=== PATIENT | male | born 1940 | race Caucasian/White ===

== ENCOUNTER → 2017-11-10 15:19 | Outpatient (CLI) | payer MEDICARE, SELFPAY ==
--- NOTE | 2017-11-10 12:27 | EKG12_ITS ---
Test Reason : PRE OP Blood Pressure : / mmHG Vent. Rate : 060 BPM Atrial Rate : 060 BPM P-R Int : 154 ms QRS Dur : 082 ms QT Int : 404 ms P-R-T Axes : 047 -15 -09 degrees QTc Int : 404 ms Sinus rhythm with occasional Premature ventricular complexes Otherwise normal ECG Confirmed by KATHERINE LOREDO, JOAO ([id number]), industrial editor KATHY SILVA ([id number]) on 11/16/2017 6:07:38 PM Referred By: Cammy Crowe Confirmed By:JOAO MURPHY MD
--- NOTE | 2017-11-10 15:19 | DT_ITS ---
This patient was seen during an EMR downtime November 07, 2017 - November 14, 2017. This patient may have a combination of paper and electronic documentation or all paper documentation. All documentation is viewable within the e-chart portion of [facility] for each patient visit.
[2017-11-14 16:23] LABS: BUN 21 mg/dL (7-18); BUN/Creat Ratio 14.5 RATIO (10-20); Creatinine, Serum 1.45 mg/dL (0.70-1.30); EST Glomerular Filtration Rate 50 mL/min (>60); Est Glom Filt Rate - Afr Amer 61 mL/min (>60); Glucose 81 mg/dL (74-106)
[2017-11-14 16:24] LABS: Anion Gap 7 (5-15); Calcium,Total 8.8 mg/dL (8.5-10.1); Chloride 105 mmol/L (98-107); Potassium 4.3 mmol/L (3.5-5.1); Sodium Level 139 mmol/L (136-145)
[2017-11-14 16:54] LABS: Hematocrit 42.8 % (40-54); Hemoglobin 14.3 g/dl (13.0-16.5); Mean Corp Hgb Conc 33.4 g/gl (32-36); Mean Corpuscular Hgb 29.1 pg (27.0-32.0); Mean Corpuscular Volume 87.2 fL (80-94); Mean Platelet Vol. 9.7 fl (6.2-12.0); Platelet Count 148 K/mm3 (150-450); RBC Distribution Width CV 13.8 % (11.6-14.6); RBC Distribution Width SD 43.5 fl (35.1-43.9); Red Blood Count 4.91 M/mm3 (4.6-6.2); Scan Indicated on CBC? Y/N NO; White Blood Count 5.5 K/mm3 (4.4-11.0)
== END ==
PROVIDERS: Family Provider Family Medicine; PCP Family Medicine; Visit Provider Physician Assistant
DX: Z01.818 Encounter for other preprocedural examination (principal); Z01.810 Encounter for preprocedural cardiovascular examination; I10 Essential (primary) hypertension
CPT/HCPCS: 36415; 80048; 85027; 93005

== ENCOUNTER → 2018-01-10 12:09 | Outpatient (CLI) | payer MEDICARE, SELFPAY ==
[2018-01-10 14:19] LABS: Erythrocyte Sedimentation Rate 27 mm/hr (0-20)
[2018-01-10 14:20] LABS: Absolute Neutrophil Count 2.8 X10^3/uL (2.0-7.7); Basophil# 0.01 X10^3/uL; Basophil% 0.2 % (0-1); Eosinophil# 0.27 X10^3/uL; Eosinophils% 4.9 % (0-5); Hematocrit 39.9 % (40-54); Lymphocyte % 32.7 % (19-41); Mean Corp Hgb Conc 32.6 g/gl (32-36); Mean Corpuscular Hgb 28.2 pg (27.0-32.0); Mean Corpuscular Volume 86.6 fL (80-94); Mean Platelet Vol. 9.9 fl (6.2-12.0); Monocyte# 0.65 X10^3/uL; Monocyte% 11.8 % (0-10); Neutrophil # 2.77 X10^3/uL (2.7-7.7); Neutrophil % 50.2 % (47-70); Platelet Count 194 K/mm3 (150-450); RBC Distribution Width CV 13.6 % (11.6-14.6); RBC Distribution Width SD 42.1 fl (35.1-43.9); Red Blood Count 4.61 M/mm3 (4.6-6.2); White Blood Count 5.5 K/mm3 (4.4-11.0)
[2018-01-10 14:22] LABS: POSITIVE COUNT NO; POSITIVE DIFFERENTIAL NO; POSITIVE MORPHOLOGY NO
[2018-01-10 14:48] LABS: Color, Urine Yellow (Yellow); Glucose, Dipstick Normal (Normal); Ketone-Dipstick 5 mg/dl (Negative); Leukocyte Esterase-Dipstick 25 /ul (Negative); Nitrite-Dipstick Negative (Negative); Occult Blood-Urine 150 /ul (Negative); Protein-Dipstick 30 mg/dl (Negative); Specific Gravity, Urine 1.015 (1.002-1.030); Urine Bilirubin Dipstick Negative (Negative); Urine Clarity Sl. Cloudy (Clear); Urine Urobilinogen 4 mg/dl (Normal)
[2018-01-10 14:49] LABS: ALB/GLOB Ratio 0.8 RATIO (0.9-2.4); AST(SGOT) 13 U/L (15-37); Alanine Aminotransfer ALT/SGPT 12 U/L (16-61); Albumin, Serum 3.3 g/dL (3.2-5.0); Alkaline Phosphatase 133 U/L (45-117); Anion Gap 10 (5-15); BUN 19 mg/dL (7-18); BUN/Creat Ratio 14.6 RATIO (10-20); Calcium,Total 8.8 mg/dL (8.5-10.1); Chloride 104 mmol/L (98-107); EST Glomerular Filtration Rate 57 mL/min (>60); Est Glom Filt Rate - Afr Amer 69 mL/min (>60); Ferritin 513 ng/mL (26-388); Globulin 4.3 g/dL (2.2-4.2); Glucose 100 mg/dL (74-106); Potassium 3.9 mmol/L (3.5-5.1); Protein, Total 7.6 g/dL (6.4-8.2); Sodium Level 142 mmol/L (136-145); Thyroid Stim Hormone (TSH) 3.05 uIU/mL (0.358-3.74)
[2018-01-11 09:44] LABS: Vitamin B12 344 pg/mL (211-911); Vitamin D,25 Hydroxy 30.5 ng/mL (29.95-100.01)
[2018-01-11 15:46] LABS: ANTINUCLEAR ANTIBODIES DIRECT Positive (Negative)
== END ==
PROVIDERS: Family Provider Family Medicine; PCP Family Medicine; Visit Provider Family Medicine
DX: R50.9 Fever, unspecified (principal); R53.83 Other fatigue
CPT/HCPCS: 36415; 80053; 81002; 82306; 82607; 82728; 82746; 84443; 85025; 85652; 86038; 86140; 87040; 87086

== ENCOUNTER → 2018-01-10 12:49 | Outpatient (CLI) | payer MEDICARE, SELFPAY ==
--- NOTE | 2018-01-10 15:31 | CT_ITS ---
STUDY: CT ABDOMEN AND PELVIS WITHOUT CONTRAST REASON FOR EXAM: Male, 77 years old. Left lower quadrant pain, fever RADIATION DOSAGE (If Supplied By Facility): CTDIvol = ( 6.93 ) mGy, DLP = ( 359.97 ) mGycm TECHNIQUE: Transaxial images were obtained from the dome of the diaphragm to the symphysis pubis without oral contrast, and without intravenous contrast. Sagittal and coronal images were reconstructed. Individualized dose optimization techniques were used for this CT. COMPARISON: None. FINDINGS: There are chronic interstitial fibrotic changes of the lung bases. There are atherosclerotic calcifications of the coronary arteries. Normal liver. The gallbladder appears to be surgically absent. Normal spleen. Normal pancreas. Normal bilateral adrenal glands. Mild atrophy of both kidneys. Low-density exophytic lesion of the right kidney measures 7 mm, likely representing a simple cyst. Normal visualized stomach. Normal small intestine. There are multiple colonic diverticula consistent with diverticulosis. The appendix is visualized and appears normal. Significant tortuosity of the abdominal aorta with infrarenal fusiform abdominal aortic aneurysm measuring 6.4 x 6.8 cm (AP by transverse). Atherosclerotic calcifications are noted through the aortoiliac system. Normal inferior vena cava. Normal retroperitoneum. Normal urinary bladder. There is a right-sided inguinal hernia containing adipose tissue. There are degenerative changes of the lumbar spine with levoscoliosis. Canal narrowing most conspicuous at L2-L3. CT/Abdomen/Pelvis without Cont IMPRESSION: 1. Infrarenal fusiform abdominal aortic aneurysm measuring up to 6.8 cm in axial dimension. Surgical consultation is suggested. No evidence of periaortic inflammation/leak. Limited evaluation without IV contrast. 2. Diverticulosis without evidence of diverticulitis. 3. Cholecystectomy. 4. Subcentimeter right renal cyst. Electronically Signed: Manjit Sahu MD at 9:03 EDT , Service support ,
--- NOTE | 2018-01-10 15:44 | RAD_ITS ---
STUDY: X-RAY CHEST REASON FOR EXAM: Male, 77 years old. Fever TECHNIQUE: PA and lateral views of the chest. COMPARISON: 11/01/2013 FINDINGS: Well-circumscribed, relatively dense nodule in the right upper lobe measures 8 mm, stable likely representing granuloma. There is no demonstrated pleural abnormality. Normal size heart. Normal mediastinum and maximilian. Normal visualized pulmonary arteries. There is atherosclerotic calcification of the aortic arch with tortuosity. There are diffuse degenerative changes of the visualized thoracic spine. Operative hardware of the left humerus partially visualized. There is no demonstrated abnormality of the visualized soft tissue structures of the upper abdomen. RAD/Chest PA and Lateral IMPRESSION: No acute airspace disease or pleural effusion. Stable exam. Electronically Signed: Manjit Sahu MD at 9:10 EDT , Service support ,
== END ==
PROVIDERS: Family Provider Family Medicine; PCP Family Medicine; Visit Provider Family Medicine
DX: R10.32 Left lower quadrant pain (principal); R50.9 Fever, unspecified; R53.83 Other fatigue
CPT/HCPCS: 36415; 71046; 74176; 80053; 81002; 82306; 82607; 82728; 82746; 84443; 85025; 85652; 86038; 86140; 87040; 87086; 87088

== ENCOUNTER 2018-01-11 23:05 | Emergency (ER) | payer MEDICARE, SELFPAY ==
[2018-01-11 23:06] VITALS: BP 126/74; PULSE 76; RESP 24; TEMP 36.6; O2SAT 97; BMI 26.0
--- NOTE | 2018-01-11 23:08 | CT_ITS ---
STUDY: CT ABDOMEN AND PELVIS WITH CONTRAST REASON FOR EXAM: Male, 77 years old. AAA, weakness RADIATION DOSAGE (If Supplied By Facility): CTDIvol = ( 9.87 ) mGy, DLP = ( 479.51 ) mGycm TECHNIQUE: Transaxial images were obtained from the dome of the diaphragm to the symphysis pubis without oral contrast. 100ML ml of Isovue 370 contrast was administered. Sagittal and coronal images were reconstructed. Individualized dose optimization techniques were used for this CT. COMPARISON: January 10, 2018. FINDINGS: The visualized lung bases are unremarkable. The visualized portions of the heart are within normal limits. Fatty liver. Nonvisualization of the gallbladder. No significant dilatation of the extrahepatic biliary system. Normal spleen. Normal pancreas. Normal bilateral adrenal glands. Small cysts are noted in the kidneys. Focal severe stenosis of the left main renal artery. Normal visualized stomach. Normal small intestine. Diverticulosis of the colon. The appendix is visualized and appears normal. Calcified abdominal aorta with infrarenal aneurysm measuring 7.5 x 7.2 cm. It extends approximately 12.1 cm to the aortic bifurcation. Interval development of a large left retroperitoneal hematoma is noted since extending into the left pelvic region likely related to a leaking aneurysm. No active extravasation is seen. Normal inferior vena cava. Normal urinary bladder. Fatty density at the inguinal canals, right more than left. Mild pelvic fluid. Normal abdominal wall. Degenerative vertebral changes. CT/Abdomen/Pelvis W IV Cont ONLY IMPRESSION: Bilateral renal cysts. Focal severe stenosis of the left main renal artery. Colonic diverticulosis. Infrarenal abdominal aortic aneurysm with interval development of a large left retroperitoneal hematoma extending into the pelvis. A leaking aneurysm cannot be excluded. Mild pelvic fluid. N.B. : The above information has been verbally conveyed by David Burr DO to Edna Garrett [facility]- ED RN, on 01/11/2018 23:57:11 (ET). Electronically Signed: David Burr DO at 23:57 EDT Tel [phone], Service support ,
--- NOTE | 2018-01-11 23:13 | ED.VISSUMM ---
- ER Visit Summary Date of Service: 01/11/18 Chief Complaint: [Syncope] History of Present Illness: The patient is a 77 M [who presents the emergency department with syncope. He started having left flank pain earlier this evening. He got very diaphoretic and nauseated. Is a known AAA that was diagnosed today that 6 cm. He has appointment with vascular surgery tomorrow. He has a history of coronary artery disease hypertension hyperlipidemia] Physical Examination: [] Blood pressure 126/74 heart rate 76 respiratory rate 24 pulse ox 97% WN WD mild distress PERRL EOMI MMM NECK supple and nontender, no masses RRR no murmur rub or gallop, no peripheral edema, symmetric radial pulses CTAB no respiratory distress ABDOMEN is soft and nontender, normal bowel sounds, palpable pulsatile mass skin the left lower quadrant, no rebound or guarding CVA discomfort SKIN is warm and dry no rashes pale slightly diaphoretic Alert and Oriented x3, CN II-XII in tact, no motor or sensory deficits, diffusely weak No lymphadenopathy Test Results: [] Emergency Department Course and Treatment: [Ultrasound was placed on the patient on arrival. Did confirm an aortic aneurysm. Patient will go straight to CAT scan. 2 large-bore IVs were established by EMS. He is on aspirin. He did have blood in his urine earlier today and was started on an antibiotic. CT showed ruptured abdominal aortic aneurysm. This was reviewed by myself. I did speak with the family requested [facility]. I spoke with [facility] vascular surgeon Dr. Paniagua who accepted the patient. He did request intubation. Patient was intubated with 20 of etomidate, 4 MAC blade during direct laryngoscopy cords were easily visualized 7.5 ET tube was passed without difficulty. Patient was biting on the tube after intubation and he was given succinyl choline Ativan and fentanyl. Placement was confirmed by colorimetric change bilateral breath sounds in appropriate position on chest x-ray. Trauma blood was started and he was transfused 4 units. We did contact [employer] who said that they were not flying at that time [facility] was contacted and agreed to transport via flight. Patient's blood pressure remained in the 50's-70s during this time.] Treatment Plan: [] Disposition: [Transfer] Impression: [Ruptured aortic aneurysm] This note was generated with [employer] software. It may contain incorrect words, spelling, and punctuation that were not noted in review of the chart prior to signing ED Disposition - Plan for ED Patient: Disposition: [facility] Chief Complaint: Syncope Referrals: Jack Olmedo MD [Primary Care Provider] -
--- NOTE | 2018-01-11 23:14 | ED.RN ---
per dr. monk wait toill post ct to obtain ekg.
--- NOTE | 2018-01-11 23:16 | ED.DCSUM_ITS ---
- ER Visit Summary Date of Service: 01/11/18 Chief Complaint: [Syncope] History of Present Illness: The patient is a 77 M [who presents the emergency department with syncope. He started having left flank pain earlier this evening. He got very diaphoretic and nauseated. Is a known AAA that was diagnosed today that 6 cm. He has appointment with vascular surgery tomorrow. He has a history of coronary artery disease hypertension hyperlipidemia] Physical Examination: [] Blood pressure 126/74 heart rate 76 respiratory rate 24 pulse ox 97% WN WD mild distress PERRL EOMI MMM NECK supple and nontender, no masses RRR no murmur rub or gallop, no peripheral edema, symmetric radial pulses CTAB no respiratory distress ABDOMEN is soft and nontender, normal bowel sounds, palpable pulsatile mass skin the left lower quadrant, no rebound or guarding CVA discomfort SKIN is warm and dry no rashes pale slightly diaphoretic Alert and Oriented x3, CN II-XII in tact, no motor or sensory deficits, diffusely weak No lymphadenopathy Test Results: [] Emergency Department Course and Treatment: [Ultrasound was placed on the patient on arrival. Did confirm an aortic aneurysm. Patient will go straight to CAT scan. 2 large-bore IVs were established by EMS. He is on aspirin. He did have blood in his urine earlier today and was started on an antibiotic. CT showed ruptured abdominal aortic aneurysm. This was reviewed by myself. I did speak with the family requested [facility]. I spoke with [facility] vascular surgeon Dr. Paniagua who accepted the patient. He did request intubation. Patient was intubated with 20 of etomidate, 4 MAC blade during direct laryngoscopy cords were easily visualized 7.5 ET tube was passed without difficulty. Patient was biting on the tube after intubation and he was given succinyl choline Ativan and fentanyl. Placement was confirmed by colorimetric change bilateral breath sounds in appropriate position on chest x-ray. Trauma blood was started and he was transfused 4 units. We did contact [employer] who said that they were not flying at that time [facility] was contacted and agreed to transport via flight. Patient's blood pressure remained in the 50's-70s during this time.] Treatment Plan: [] Disposition: [Transfer] Impression: [Ruptured aortic aneurysm] This note was generated with [employer] software. It may contain incorrect words, spelling, and punctuation that were not noted in review of the chart prior to signing ED Disposition - Plan for ED Patient: Disposition: [facility] Chief Complaint: Syncope Referrals: Jack Olmedo MD [Primary Care Provider] -
[2018-01-11 23:20] LABS: Absolute Lymphocyte Count 3.83 X10^3/ul (0.83-4.51); Absolute Neutrophil Count 4.5 X10^3/uL (2.0-7.7); Basophil# 0.02 X10^3/uL; Basophil% 0.2 % (0-1); Eosinophil# 0.34 X10^3/uL; Eosinophils% 3.5 % (0-5); Hemoglobin 11.7 g/dl (13.0-16.5); Lymphocyte # 3.83 X10^3/ul (4.0); Lymphocyte % 39.5 % (19-41); Mean Corp Hgb Conc 33.4 g/gl (32-36); Mean Corpuscular Volume 86.6 fL (80-94); Mean Platelet Vol. 9.4 fl (6.2-12.0); Monocyte# 1.02 X10^3/uL; Monocyte% 10.5 % (0-10); Neutrophil # 4.46 X10^3/uL (2.7-7.7); Platelet Count 208 K/mm3 (150-450); RBC Distribution Width CV 13.2 % (11.6-14.6); RBC Distribution Width SD 41.3 fl (35.1-43.9); Red Blood Count 4.04 M/mm3 (4.6-6.2); White Blood Count 9.7 K/mm3 (4.4-11.0)
[2018-01-11 23:22] LABS: POSITIVE COUNT NO; POSITIVE DIFFERENTIAL NO; POSITIVE MORPHOLOGY NO
[2018-01-11 23:28] LABS: International Normalized Ratio 1.3; Prothrombin Time (Protime)PT. 15.8 SECONDS (11.7-14.9)
[2018-01-11] MEDS: Ondansetron 4 MG/2 ML Vial IV (23:31)
[2018-01-11] MEDS: 0.9% Normal Saline 1,000 ML 1000 ML IV (23:34)
[2018-01-11 23:39] LABS: ALB/GLOB Ratio 0.7 RATIO (0.9-2.4); AST(SGOT) 9 U/L (15-37); Alanine Aminotransfer ALT/SGPT 9 U/L (16-61); Albumin, Serum 2.7 g/dL (3.2-5.0); Alkaline Phosphatase 105 U/L (45-117); Anion Gap 7 (5-15); BUN 21 mg/dL (7-18); BUN/Creat Ratio 14.9 RATIO (10-20); Calcium,Total 7.8 mg/dL (8.5-10.1); Chloride 106 mmol/L (98-107); Creatinine, Serum 1.41 mg/dL (0.70-1.30); EST Glomerular Filtration Rate 52 mL/min (>60); Est Glom Filt Rate - Afr Amer 63 mL/min (>60); Estimated Creatinine Clearance 43.87 ml/min; Globulin 3.7 g/dL (2.2-4.2); Glucose 206 mg/dL (74-106); Potassium 3.4 mmol/L (3.5-5.1); Protein, Total 6.4 g/dL (6.4-8.2); Sodium Level 140 mmol/L (136-145)
[2018-01-11] MEDS: Etomidate 20 MG/10 ML Vial IV (23:46)
[2018-01-11] MEDS: LORazepam 2 MG/ML Syringe 1 MG IV (23:50)
[2018-01-11] MEDS: Succinylcholine Chloride 200 MG/10 ML Vial 100 MG IV (23:51)
--- NOTE | 2018-01-11 23:55 | RAD_ITS ---
STUDY: X-RAY CHEST REASON FOR EXAM: Male, 77 years old. ETT and OGT placement TECHNIQUE: Single frontal view of the chest. COMPARISON: 01/10/2018 FINDINGS: Endotracheal tube tip 3.3 cm from kianna, in appropriate position. Enteric tube tip excluded by collimation in the abdomen. Bibasilar atelectasis. There is no demonstrated pleural abnormality. Normal size heart. Normal mediastinum and maximilian. Normal visualized pulmonary arteries. There is atherosclerotic calcification of the aortic arch with tortuosity. Normal visualized thoracic spine. Remote deformity of the right scapula. Hardware in the left humerus. There is no demonstrated abnormality of the visualized soft tissue structures of the upper abdomen. RAD/Chest 1 View (Portable) IMPRESSION: Endotracheal tube tip 3.3 cm from kianna, in appropriate position. Enteric tube tip excluded by collimation in the abdomen. Electronically Signed: Ashu Montalvo MD at 0:06 EDT Tel , Service support ,
[2018-01-12] MEDS: LORazepam 2 MG/ML Syringe 1 MG IV (00:03)
[2018-01-12] MEDS: fentaNYL 100 MCG/2 ML Ampul 50 MCG IV (00:04)
[2018-01-12 00:13] VITALS: BP 58/36; PULSE 105; RESP 18; O2SAT 98
[2018-01-12 00:20] VITALS: BP 58/36; PULSE 85
--- NOTE | 2018-01-12 00:37 | ED.RN ---
2345 2 UNITS TRAUMA BLOOD STARTED. 0004 2ND SET OF 2 UNITS OF TRAUMA BLOOD STARTED/ TRANSPORT HERE AND SWITCHING PATIENT OVER.
--- NOTE | 2018-01-12 00:53 | ED.RN ---
[address], ABDOMEN PAIN INCREASING PER PT. FEELING LIKE HE IS GOING TO PASS OUT. DR. CHAPPELL AWARE BP 69/56 2342 2 UNITS TRAUMA BLOOD STARTED. IVF PLACED ON PRESSURE BAGS. DR. CHAPPELL AT BEDSIDE. 2346 20 ETOMIDATE GIVEN AND INTUBATED. PULS OXYGEN NOT READING WELL PER DR. CHAPPELL SAT IS NOT CORRECT. IVF CONTINUED TO INFUSE VIA PRESSURE BAGS. 3RD IV ESTABLISHED 22G [address]. OG PLACED POSITIVE AIR BOLUS HEARD 2355 2 UNITS OF BLOOD TRANSFUSED. 4 L FLUID GIVEN 0003 [facility] AT BEDSIDE. REPORT GIVEN. 2ND SET OF 2 UNITS OF TRAUMA BLOOD STARTED
== END 2018-01-12 01:00 | disposition short-term general hospital (02) ==
LOC: ED 23:44
PROVIDERS: Emergency Provider Emergency Medicine; Family Provider Family Medicine; PCP Family Medicine
DX: I71.3 Abdominal aortic aneurysm, ruptured (principal); R31.9 Hematuria, unspecified; I25.10 Atherosclerotic heart disease of native coronary artery without angina pectoris; I10 Essential (primary) hypertension; E78.5 Hyperlipidemia, unspecified; Z79.82 Long term (current) use of aspirin; Z79.899 Other long term (current) drug therapy
CPT/HCPCS: 31500; 36430; 51702; 71045; 74177; 80053; 84484; 85025; 85610; 86850; 86900; 86920; 86922; 93005; 96361; 96374; 96375; 99251; 99285; J7030; J7050; P9016; Q9967; A4216; G0463; J0330; J2405

== ENCOUNTER 2018-03-28 15:15 | Inpatient (IN) | payer MEDICARE, SELFPAY ==
[2018-03-28 16:10] VITALS: BP 105/63; PULSE 82; RESP 18; TEMP 36.6; O2SAT 99
--- NOTE | 2018-03-28 16:11 | NURSING ---
Pt admitted to room 18 from [facility] via cot. Patient oriented to room and call light system explained.
--- NOTE | 2018-03-28 16:40 | NURSING ---
ALL CARE PROVIDED IN ROOM D/T MDRO IN SPUTUM.
[2018-03-28 16:55] VITALS: BMI 22.4
[2018-03-28 17:03] VITALS: BMI 22.5
--- NOTE | 2018-03-28 18:05 | NURSING ---
DISCUSSED CODE STATUS WITH R' DAUGHTER, FRANCY. CODE STATUS IS TO REMAIN FULL CODE.
[2018-03-28] MEDS: Heparin Injection (Vial) 5,000 UNIT/ML VIAL 5000 UNIT SC (18:28)
--- NOTE | 2018-03-28 19:06 | NURSING ---
THIS NURSE WENT TO ADMINISTER EVENING MEDICATIONS. UNABLE TO D/T PEG TUBE BEING CLOGGED. UNABLE TO FLUSH. TRIED TO GIVE APPLE JUICE THROUGH THE TUBE, BUT UNSUCCESSFUL. FRUIT PITTER UPDATED AND WILL SEND DE-CLOGGER TO TRY TO ATTEMPT TO DE-CLOG. WEATHER STRIP MECHANIC RN'S AWARE.
[2018-03-28 20:04] VITALS: PULSE 82
[2018-03-28] MEDS: Metoprolol Tartrate 25 MG Tablet 12.5 MG GT (20:04)
[2018-03-28] MEDS: Ferrous Sulfate 300 MG/5 ML UDC GT (20:06)
[2018-03-28] MEDS: Docusate Sodium 100 MG/10 ML UDC GT (20:06)
[2018-03-28] MEDS: Menthol/Lanolin/Calamine/Znox 113 GM Tube 1 APPLIC TOPICAL (20:07)
--- NOTE | 2018-03-28 20:11 | PCM.HP.STD ---
Problem List (1) Abdominal aortic aneurysm, ruptured Status: Acute (2) Cardiac arrest Status: Acute (3) Anoxic encephalopathy Status: Acute (4) Hyperlipidemia Status: Chronic (5) Acute kidney injury Status: Acute (6) Tachycardia Status: Acute (7) DIC (disseminated intravascular coagulation) Status: Acute (8) Ileus Status: Acute (9) Iron deficiency anemia Status: Chronic (10) GERD (gastroesophageal reflux disease) Status: Chronic (11) Dysphagia Status: Acute (12) Coronary artery disease Status: Chronic (13) Hypertension Status: Chronic History of Present Illness Date of Admission: 03/28/18 Chief Complaint: Here for rehabilitation, strengthening, prior to long-term care placement. The patient is a 78 year old Male with below past medical history presented to [facility] Emergency Department 01/11/2018 with syncope, left flank pain, diaphoresis, nausea. He was recently diagnosed with 6CM abdominal aortic aneurysm, had appointment with vascular surgery 01/12/2018. 01/11/2018 CT scan of abdomen/pelvis showed ruptured abdominal aortic aneurysm. Patient intubated, given succinyl choline, Ativan, Fentanyl. Transfused 4 units trauma blood. Patient [facility] to [facility]. 01/12/2018 Dr. Paniagua performed emergent AAA repair. Transferred to [facility] for recovery. Trach, PEG, condom catheter. Code Blue x 5, vasovagal thought secondary to Famotidine. EP recommended no intervention. Family told not to expect full recovery. HCAP treated with IV antibiotics. 03/28/2018 Admit to TCU with debility, here for rehabilitation, strengthening, prior to long-term care placement. His spouse is medically ill and unable to care for him at home. Past Medical History Past Medical History (Chronic Problems): Chronic Problems Hyperlipidemia (Chronic) Iron deficiency anemia (Chronic) GERD (gastroesophageal reflux disease) (Chronic) Coronary artery disease (Chronic) Hypertension (Chronic) Allergies famotidine [From Pepcid] Adverse Reaction (Verified 03/28/18 16:36) Low blood pressure Home Medications: Ambulatory Orders Medication Instructions Recorded Chlorhexidine [(None)] 15 ml PO BID 03/28/18 Docusate Sodium [COLACE LIQUID] 100 mg GT BID 03/28/18 Ferrous Sulfate Syrup 325 mg GT BID 03/28/18 Heparin Injection 5,000 units SC BID 03/28/18 Ipratropium/Albuterol Sulfate 3 ml INHALATION TID 03/28/18 [Duoneb] Lansoprazole [Prevacid] 30 mg GT DAILY 03/28/18 Metoprolol Tartrate [Lopressor 12.5 mg GT BID 03/28/18 (Beta Dillon)] Nystatin 100,000 unit PO 4X/DAY 03/28/18 Propylene Glycol/Peg 400/Pf 1 each OP BID 03/28/18 [Systane 0.3-0.4% Eye Drops] Surgical History: - - Left arm he states that a jerry has been placed in the arm. Emergent AAA repair. Psychiatric History: No pertinent psych hx Lives: Spouse/ Significant Other Smoking Status: Never smoker Tobacco Use: Non-smoker Alcohol: None Drugs: None - *Family History Maternal History Items: Unknown Review of Systems Constitutional: Denies: Chills, Fever, Weight Change HEENT: Denies: Head Aches, Sinus Congestion, Sinus Drainage Cardiovascular: Denies: Chest Pain, Palpitations Respiratory: Denies: Cough, Shortness of breath at rest, Sputum production Gastrointestinal: Denies: Abdominal Pain, Nausea, Vomiting Genitourinary: Denies: Dysuria Musculoskeletal: Denies: Joint Pain, Joint Tenderness Skin: Denies: Rash, Wounds Neurological: Denies: Numbness, Tingling, Focal weakness Psychiatric: Denies: Anxiety, Depression, Homicidal Ideations, Suicidal Ideations Hematologic/ Lymphatic: Denies: Easy Bruising, Easy Bleeding VTE Information - Inpt Only VTE Present on Admission: No VTE Mechan Device Prophylaxis: Knee High SKYE Hose VTE Pharm Prophylaxis ordered?: Yes Patient Problems: Active and Suspected Problems Abdominal aortic aneurysm, ruptured (Acute) Cardiac arrest (Acute) Anoxic encephalopathy (Acute) Acute kidney injury (Acute) Tachycardia (Acute) DIC (disseminated intravascular coagulation) (Acute) Ileus (Acute) Dysphagia (Acute) - Physical Exam General: Alert, Oriented x3, Cooperative HEENT: Atraumatic, PERRLA, EOMI, Normocephalic Neck: Supple, No JVD, Negative Carotid Bruits, - - Tracheostomy. Lungs: Clear to auscultation, Normal air movement Cardiovascular: Regular rate, No murmurs Abdomen: Bowel Sounds Present, Soft, Non Tender, - - PEG tube, Condom catheter. Extremities: No edema, Capillary Refill Less than 3 Seconds Skin: No rashes, No breakdown, Incision - Abdomen per wound team. Musculoskeletal: No Tenderness to Palpation of Joints or Extremities Neurological: Cranial nerves II-XII grossly intact Psych/Mental Status: Normal Affect, Appropriate Vital Signs Temp Pulse Resp BP Pulse Ox 97.9 F 82 18 105/63 99 03/28/18 16:10 03/28/18 16:10 03/28/18 16:10 03/28/18 16:10 03/28/18 16:10 Oxygen Delivery Method Room Air Weight: 73.028 kg Body Mass Index (BMI) 22.4 Assessment/Plan All Active Problems Abdominal aortic aneurysm, ruptured (Acute) Cardiac arrest (Acute) Anoxic encephalopathy (Acute) Acute kidney injury (Acute) Tachycardia (Acute) DIC (disseminated intravascular coagulation) (Acute) Ileus (Acute) Dysphagia (Acute) 78 year old male with below past medical history hospitalized for ruptured abdominal aortic aneurysm, underwent repair 01/12/[address] Paniagua, complicated by cardiac arrest, anoxic encephalopathy, admitted to [facility], then transferred to TCU for rehabilitation, strengthening, prior to legal analyst care placement. Resident's prognosis is poor. Debility - PT/OT. Dysphagia - ST. Pain - Tylenol 650MG Q6H PRN mild pain. Bowel - Colace 100MG GT BID. Pneumonia vaccination - Family declined Pneumonia vaccination as well as flu vaccination. DVT prophylaxis - Heparin 5000 units BID. Iron deficiency anemia - Ferrous sulfate 300MG BID. Shortness of breath - Duonb 3ML TID. GERD - Lansoprazole 30MG daily. Skin irritation - Calmoseptine TID buttocks. Coronary Artery Disease - Metoprolol 12.5MG BID. Thrush - Nystatin 100,000 4x/day x 10 days. Dry eyes - Artificial Tears 1GTT OU BID. Nutrition - Vital AF 1.2 60ML/hour, consult nutrition for water flushes.
[2018-03-28] MEDS: Vital AF 1.2 Cal Liquid 1,000 ML 40 ML GT (20:14)
--- NOTE | 2018-03-28 20:18 | HP.PCM_ITS ---
Problem List (1) Abdominal aortic aneurysm, ruptured Status: Acute (2) Cardiac arrest Status: Acute (3) Anoxic encephalopathy Status: Acute (4) Hyperlipidemia Status: Chronic (5) Acute kidney injury Status: Acute (6) Tachycardia Status: Acute (7) DIC (disseminated intravascular coagulation) Status: Acute (8) Ileus Status: Acute (9) Iron deficiency anemia Status: Chronic (10) GERD (gastroesophageal reflux disease) Status: Chronic (11) Dysphagia Status: Acute (12) Coronary artery disease Status: Chronic (13) Hypertension Status: Chronic History of Present Illness Date of Admission: 03/28/18 Chief Complaint: Here for rehabilitation, strengthening, prior to chcf care placement. The patient is a 78 year old Male with below past medical history presented to [facility] Emergency Department 01/11/2018 with syncope, left flank pain, diaphoresis, nausea. He was recently diagnosed with 6CM abdominal aortic aneurysm, had appointment with vascular surgery 01/12/2018. 01/11/2018 CT scan of abdomen/pelvis showed ruptured abdominal aortic aneurysm. Patient intubated, given succinyl choline, Ativan, Fentanyl. Transfused 4 units trauma blood. Patient Lifeflighted to [facility]. 01/12/2018 Dr. Paniagua performed emergent AAA repair. Transferred to [facility] for recovery. Trach, PEG, condom catheter. Code Blue x 5, vasovagal thought secondary to Famotidine. EP recommended no intervention. Family told not to expect full recovery. HCAP treated with IV antibiotics. 03/28/2018 Admit to TCU with debility, here for rehabilitation, strengthening, prior to chcf care placement. His spouse is medically ill and unable to care for him at home. Past Medical History Past Medical History (Chronic Problems): Chronic Problems Hyperlipidemia (Chronic) Iron deficiency anemia (Chronic) GERD (gastroesophageal reflux disease) (Chronic) Coronary artery disease (Chronic) Hypertension (Chronic) Allergies famotidine [From Pepcid] Adverse Reaction (Verified 03/28/18 16:36) Low blood pressure Home Medications: Ambulatory Orders Medication Instructions Recorded Chlorhexidine [(None)] 15 ml PO BID 03/28/18 Docusate Sodium [COLACE LIQUID] 100 mg GT BID 03/28/18 Ferrous Sulfate Syrup 325 mg GT BID 03/28/18 Heparin Injection 5,000 units SC BID 03/28/18 Ipratropium/Albuterol Sulfate 3 ml INHALATION TID 03/28/18 [Duoneb] Lansoprazole [Prevacid] 30 mg GT DAILY 03/28/18 Metoprolol Tartrate [Lopressor 12.5 mg GT BID 03/28/18 (Beta Dillon)] Nystatin 100,000 unit PO 4X/DAY 03/28/18 Propylene Glycol/Peg 400/Pf 1 each OP BID 03/28/18 [Systane 0.3-0.4% Eye Drops] Surgical History: - - Left arm he states that a jerry has been placed in the arm. Emergent AAA repair. Psychiatric History: No pertinent psych hx Lives: Spouse/ Significant Other Smoking Status: Never smoker Tobacco Use: Non-smoker Alcohol: None Drugs: None - *Family History Maternal History Items: Unknown Review of Systems Constitutional: Denies: Chills, Fever, Weight Change HEENT: Denies: Head Aches, Sinus Congestion, Sinus Drainage Cardiovascular: Denies: Chest Pain, Palpitations Respiratory: Denies: Cough, Shortness of breath at rest, Sputum production Gastrointestinal: Denies: Abdominal Pain, Nausea, Vomiting Genitourinary: Denies: Dysuria Musculoskeletal: Denies: Joint Pain, Joint Tenderness Skin: Denies: Rash, Wounds Neurological: Denies: Numbness, Tingling, Focal weakness Psychiatric: Denies: Anxiety, Depression, Homicidal Ideations, Suicidal Ideations Hematologic/ Lymphatic: Denies: Easy Bruising, Easy Bleeding VTE Information - Inpt Only VTE Present on Admission: No VTE Mechan Device Prophylaxis: Knee High SKYE Hose VTE Pharm Prophylaxis ordered?: Yes Patient Problems: Active and Suspected Problems Abdominal aortic aneurysm, ruptured (Acute) Cardiac arrest (Acute) Anoxic encephalopathy (Acute) Acute kidney injury (Acute) Tachycardia (Acute) DIC (disseminated intravascular coagulation) (Acute) Ileus (Acute) Dysphagia (Acute) - Physical Exam General: Alert, Oriented x3, Cooperative HEENT: Atraumatic, PERRLA, EOMI, Normocephalic Neck: Supple, No JVD, Negative Carotid Bruits, - - Tracheostomy. Lungs: Clear to auscultation, Normal air movement Cardiovascular: Regular rate, No murmurs Abdomen: Bowel Sounds Present, Soft, Non Tender, - - PEG tube, Condom catheter. Extremities: No edema, Capillary Refill Less than 3 Seconds Skin: No rashes, No breakdown, Incision - Abdomen per wound team. Musculoskeletal: No Tenderness to Palpation of Joints or Extremities Neurological: Cranial nerves II-XII grossly intact Psych/Mental Status: Normal Affect, Appropriate Vital Signs Temp Pulse Resp BP Pulse Ox 97.9 F 82 18 105/63 99 03/28/18 16:10 03/28/18 16:10 03/28/18 16:10 03/28/18 16:10 03/28/18 16:10 Oxygen Delivery Method Room Air Weight: 73.028 kg Body Mass Index (BMI) 22.4 Assessment/Plan All Active Problems Abdominal aortic aneurysm, ruptured (Acute) Cardiac arrest (Acute) Anoxic encephalopathy (Acute) Acute kidney injury (Acute) Tachycardia (Acute) DIC (disseminated intravascular coagulation) (Acute) Ileus (Acute) Dysphagia (Acute) 78 year old male with below past medical history hospitalized for ruptured abdominal aortic aneurysm, underwent repair 01/12/[address] 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 Resident's prognosis is poor. * Debility - PT/OT. * Dysphagia - ST. * Pain - Tylenol 650MG Q6H PRN mild pain. * Bowel - Colace 100MG GT BID. * Pneumonia vaccination - Family declined Pneumonia vaccination as well as flu vaccination. * DVT prophylaxis - Heparin 5000 units BID. * Iron deficiency anemia - Ferrous sulfate 300MG BID. * Shortness of breath - Duonb 3ML TID. * GERD - Lansoprazole 30MG daily. * Skin irritation - Calmoseptine TID buttocks. * Coronary Artery Disease - Metoprolol 12.5MG BID. * Thrush - Nystatin 100,000 4x/day x 10 days. * Dry eyes - Artificial Tears 1GTT OU BID. * Nutrition - Vital AF 1.2 60ML/hour, consult nutrition for water flushes.
[2018-03-28] MEDS: NYSTATIN 500,000 UNIT/5 ML UDC 100000 UNIT PO (20:46)
--- NOTE | 2018-03-28 22:30 | NURSING ---
Family informed this nurse pt tube feeding administered at [facility] was 40ml/hr flush 100ml/2hr. Family requesting pt continue rated from LATCH. Dr Gustafson aware, NO to continue Vital AF 40ml/hr with sterile flush 100ml/2hr. Call [facility] in AM to verify rate.
[2018-03-28 23:05] VITALS: PULSE 84; RESP 18; O2SAT 99
[2018-03-28] MEDS: Ipratropium/Albuterol Sulfate 3 ML AMPUL.NEB INHALATION (23:05)
[2018-03-29] VITALS (9 sets, daily range): BP systolic 93–130; BP diastolic 45–70; PULSE 73–105; RESP 18–20; TEMP 36.7; O2SAT 91–99
--- NOTE | 2018-03-29 02:13 | NURSING ---
Pt's daughter called RN in to room. Pt's daughter informed nurse pt seems like he is going to throw up. Gastric residual 120ml. Daughter informed nurse pt's greatest residual as 60ml at previous hospital. Tube feed held at this time. Will up date Dr Gustafson. Will continue to monitor and asses.
[2018-03-29] MEDS: Acetaminophen 650 MG/20 ML UDC GT (03:06)
[2018-03-29] MEDS: 0.9% NaCl Peripheral Flush Adult/Peds IV (03:09)
[2018-03-29] MEDS: Nystatin Powder 15gm Bottle 1 APPLIC TOPICAL ×2 (03:11→20:40)
[2018-03-29] MEDS: NYSTATIN 500,000 UNIT/5 ML UDC 100000 UNIT PO ×3 (03:12→20:42)
[2018-03-29] MEDS: Glycerin/Hypromellose/PEG400 15 ml Bottle 1 DRP EACH EYE ×2 (03:13→14:19)
[2018-03-29] MEDS: Menthol/Lanolin/Calamine/Znox 113 GM Tube 1 APPLIC TOPICAL ×3 (03:23→20:40)
[2018-03-29 05:43] LABS: Absolute Lymphocyte Count 1.74 X10^3/ul (0.83-4.51); Absolute Neutrophil Count 4.8 X10^3/uL (2.0-7.7); Basophil# 0.01 X10^3/uL; Basophil% 0.1 % (0-1); Eosinophil# 0.18 X10^3/uL; Eosinophils% 2.5 % (0-5); Hematocrit 25.5 % (40-54); Lymphocyte # 1.74 X10^3/ul (4.0); Lymphocyte % 24.2 % (19-41); Mean Corp Hgb Conc 31.4 g/gl (32-36); Mean Corpuscular Hgb 28.3 pg (27.0-32.0); Mean Corpuscular Volume 90.1 fL (80-94); Mean Platelet Vol. 9.4 fl (6.2-12.0); Monocyte% 5.6 % (0-10); Neutrophil # 4.84 X10^3/uL (2.7-7.7); Neutrophil % 67.5 % (47-70); Platelet Count 239 K/mm3 (150-450); RBC Distribution Width CV 16.8 % (11.6-14.6); RBC Distribution Width SD 52.7 fl (35.1-43.9); Red Blood Count 2.83 M/mm3 (4.6-6.2); White Blood Count 7.2 K/mm3 (4.4-11.0)
[2018-03-29 05:44] LABS: POSITIVE COUNT NO; POSITIVE DIFFERENTIAL NO; POSITIVE MORPHOLOGY NO
[2018-03-29 06:08] LABS: AST(SGOT) 24 U/L (15-37); Alanine Aminotransfer ALT/SGPT 18 U/L (16-61); Albumin, Serum 2.5 g/dL (3.2-5.0); Alkaline Phosphatase 124 U/L (45-117); Anion Gap 7 (5-15); BUN 32 mg/dL (7-18); BUN/Creat Ratio 18.4 RATIO (10-20); Bilirubin, Direct 0.36 mg/dL (0.00-0.30); Calcium,Total 9.8 mg/dL (8.5-10.1); Chloride 101 mmol/L (98-107); Creatinine, Serum 1.74 mg/dL (0.70-1.30); EST Glomerular Filtration Rate 41 mL/min (>60); Est Glom Filt Rate - Afr Amer 49 mL/min (>60); Estimated Creatinine Clearance 36.14 ml/min; Globulin 5.1 g/dL (2.2-4.2); Glucose 102 mg/dL (74-106); Protein, Total 7.6 g/dL (6.4-8.2); Sodium Level 135 mmol/L (136-145)
[2018-03-29] MEDS: LANSOPRAZOLE 15 MG CAPSULE.DR 30 MG GT (06:13)
[2018-03-29] MEDS: Docusate Sodium 100 MG/10 ML UDC GT ×2 (06:15→18:17)
[2018-03-29] MEDS: Ferrous Sulfate 300 MG/5 ML UDC GT ×2 (06:15→18:17)
[2018-03-29] MEDS: Metoprolol Tartrate 25 MG Tablet 12.5 MG GT ×2 (06:15→18:20)
[2018-03-29] MEDS: Heparin Injection (Vial) 5,000 UNIT/ML VIAL 5000 UNIT SC ×2 (06:17→18:18)
[2018-03-29] MEDS: Chlorhexidine 480 ML 15 ML PO ×2 (06:19→18:18)
[2018-03-29 07:00] LABS: Bedside Glucose 106 mg/dL (70-110)
[2018-03-29] MEDS: Ipratropium/Albuterol Sulfate 3 ML AMPUL.NEB INHALATION ×3 (07:00→19:35)
--- NOTE | 2018-03-29 08:58 | NURSING ---
Addendum entered by Tala Tran 03/29/18 09:13: new order for Reglan. Spoke with pt daughters this AM, they reported that pt had emesis this AM that expelled from trach. fast food shift supervisor nurse held tube feeds and then restarted at slow rate 20cc/hr. Traffic Law Attorney up to speak with daughters about pt history at last 2 hospitals with tube feeding issues. Original Note: Traffic Law Attorney recommending slow increases of vital AF 10cc q12hrs for goal rate of 60cc/hr, & change flushes to [id number]. Dr Gustafson updated.
--- NOTE | 2018-03-29 09:30 | NURSING ---
PARTITION NOTCHER called, speech therapy in room, sat pt up in bed, lifted HOB and pt went unresponsive & eyes staring up at ceiling. vitals stable. daughters very panicky, stated this happened back on 03/09/18 at [facility] and couple times before that. Pt is only alert to self by verbal stimuli and some tactile stimuli. pt does not follow commands. New order for troponin & chest xray. start IV and NS at 100cc/hr continuous
--- NOTE | 2018-03-29 09:39 | EKG12_ITS ---
Test Reason : RAPID RESPONSE Blood Pressure : / mmHG Vent. Rate : 078 BPM Atrial Rate : 078 BPM P-R Int : 158 ms QRS Dur : 088 ms QT Int : 410 ms P-R-T Axes : 031 -24 -06 degrees QTc Int : 467 ms Normal sinus rhythm Normal ECG When compared with ECG of 11-JAN-2018 23:30, Nonspecific T wave abnormality, worse in Inferior leads Nonspecific T wave abnormality now evident in Anterolateral leads Confirmed by MOY GEE ([id number]), photograph editor KATHY SILVA ([id number]) on 04/04/2018 11:33:34 AM Referred By: Jh Gustafson Confirmed By:MOY GEE
--- NOTE | 2018-03-29 09:39 | RAD_ITS ---
STUDY: X-RAY CHEST REASON FOR EXAM: Male, 78 years old. Dyspnea and increasing shortness of breath. TECHNIQUE: Single AP portable view of the chest. COMPARISON: Comparison is made with prior examination January 22, 2018. FINDINGS: A tracheostomy tube is in situ. The tip is at 3.3 cm proximal to the kianna. Increased markings at the lung bases with Cough is worse in the left lower lobe suggestive of bibasilar atelectasis and/or early infiltrates. Blunting of left costophrenic angle. Normal size heart. Normal mediastinum and maximilian. Normal visualized pulmonary arteries. There is atherosclerotic calcification of the aortic arch with tortuosity. Normal visualized thoracic spine. Normal visualized ribs, clavicles, and shoulders. There is no demonstrated abnormality of the visualized soft tissue structures of the upper abdomen. RAD/Chest 1 View (Portable) IMPRESSION: Findings suggesting bibasilar atelectasis and/or early infiltrates worse on the left side. There is blunting of the left costophrenic angle. Follow-up is recommended. Electronically Signed: Bertrand Steel MD at 10:10 EDT Tel [phone], Service support ,
[2018-03-29 09:40] LABS: Bedside Glucose 122 mg/dL (70-110)
--- NOTE | 2018-03-29 10:46 | NURSING ---
attempted IV to LT posterior arm, unsuccessful. RN transcribing operators supervisor notified, Jan Tolbert from ER will be up to try.
[2018-03-29] MEDS: Tuberculin,Purif.prot.deriv. 50 TU/ML Vial 5 ML ID (10:50)
[2018-03-29] MEDS: 0.9% Normal Saline 1,000 ML 100 ML IV ×2 (11:13→21:51)
--- NOTE | 2018-03-29 11:46 | NURSING ---
Dr Gomez notified of trop results and cxr. No new orders, continue with lung expansion, resp therapy
--- NOTE | 2018-03-29 12:24 | NURSING ---
family does not want pt taking reglan d/t extrapyramidal symptoms he developed at previous hospital. Will update dr larson
--- NOTE | 2018-03-29 13:43 | CHAPLAIN ---
Type of Pastoral Visit _x__ Initial Visit ___ Follow-up Visit ___ On-call Visit ___ General Patient Visit ___ Spiritual Assessment ___ Family Conference ___ Bereavement ___ Rapid Response ___ Code Blue ___ Other (describe below) Pastoral Care Referral From ___ Patient _x__ Family ___ Nurse ___ Physician ___ Supervisor Plate Pasting ___ Coal Loader ___ Other (describe below) Sacrament/Intervention _x__ Active listening ___ Anointing ___ Latter-Day ___ Bereavement ___ Communion ___ Abby exploration ___ ___ Life review ___ Prayer ___ Reconciliation ___ Sacrament of Sick _x__ Supportive presence ___ Wedding ___ Other (describe below) Pastoral Comments daughters of patient are in the room; pt is sleeping and family would prefer that he continues to sleep at this time; pt condition resulted in a rapid response earlier today; daughters report of pt's emergency surgery on Jan.11 and hospitalization elsewhere; pt has a worship connection to [employer] abby; pt and family are Restorationism and would like prayers and future visits;
--- NOTE | 2018-03-29 14:28 | NURSING ---
pts dtr's alerted this nurse that IV was leaking, kerlex, gown and top sheet was wet, This nurse tightened the connection which was the problem. pt's dtr's alerted this nurse IV pump continues to beep, couldn't figure out the direct problem but did note when pt bends wrist the catheter comes out of skin a bit. Redressed X2 then changed the IV drg which was saturated, called structural steel shop supervisor for a hard wrist board which was applied to prevent bend of wrist. Pump is running, IV drg is dry, pts's 2 dtr's remain in room pleasant & assisting any needs, pt's eyes closed and resting peacefully with call light at bedside.
--- NOTE | 2018-03-29 16:38 | NURSING ---
Pt's two dtr's were wondering if pt had a UTI but wanted the bladder to be scanned before st cath to collect urine when order was approved. This nurse bladder scanned pt @ 1500 with 68ml, brief remains dry, IV NS running @ 100ml/hr, tube feed running @ 20ml/hr, Tala GARDNER aware
--- NOTE | 2018-03-29 20:22 | NURSING ---
Addendum entered by Hailey Alexandra 03/29/18 23:13: Residual rechecked at 2200, zero. Original Note: Pt with zero residual, tube feeding increased to 30ml/hr
--- NOTE | 2018-03-29 22:59 | NURSING ---
Inner canula changed. Pt tolerated well.
[2018-03-30] VITALS (7 sets, daily range): BP systolic 86–107; BP diastolic 44–46; PULSE 79–92; RESP 16–21; TEMP 35.9; O2SAT 96–98
[2018-03-30 00:56] LABS: Bedside Glucose 112 mg/dL (70-110)
--- NOTE | 2018-03-30 01:23 | NURSING ---
Family called out to nurses's station screaming, We need a nurse! RN entered the room pt pupils dilated. Pt staring directly forward. Pt skin wet and warm. Pt not responding. CONVERTIBLE TOP INSTALLER called. Vitals WNL BS 112. Pt more arousable. Will continue to monitor and asses.
--- NOTE | 2018-03-30 03:21 | CPS ---
ENVIRONMENTAL SUSTAINABILITY MANAGER called -pt breathing 20, and hr 85, sat on 28% ca 96%--
[2018-03-30 03:41] LABS: Bedside Glucose 117 mg/dL (70-110)
--- NOTE | 2018-03-30 03:58 | NURSING ---
Family called out to nurses' station requesting help at 0320. Staff entered room to find pt eyes open, dilated and staring straight forward. B/P 145/91 HR105 Resp 20 SPO2 96% 97.5. BS 112. Pt diaphoretic. Sternal rub. Pressure to finger applied. Pt's eyes closed. After 1 minute pt began to nod head to questions. B/P 139/53 HR 84 SpO2 98. Family requesting tube feed be stopped at this time. Family requesting to speak with Dr Gustafson in AM. Will continue to monitor and asses
--- NOTE | 2018-03-30 05:00 | NURSING ---
Family called out to nurses station requesting assistance. Pt pupils dilated, eyes starring straight forward. B/P 138/62 HR 115. Pt came to. HR 89. Dr Gustafson notified. Dr Gustafson recommend tube feed restart, family continues to refuse. Will continue to monitor.
[2018-03-30 05:01] LABS: Bedside Glucose 115 mg/dL (70-110)
[2018-03-30] MEDS: LANSOPRAZOLE 15 MG CAPSULE.DR 30 MG GT (05:19)
[2018-03-30] MEDS: Docusate Sodium 100 MG/10 ML UDC GT ×2 (05:21→18:04)
[2018-03-30] MEDS: Heparin Injection (Vial) 5,000 UNIT/ML VIAL 5000 UNIT SC ×2 (05:21→18:10)
[2018-03-30] MEDS: Ferrous Sulfate 300 MG/5 ML UDC GT ×2 (05:21→18:04)
[2018-03-30] MEDS: Metoprolol Tartrate 25 MG Tablet 12.5 MG GT (05:23)
[2018-03-30] MEDS: Menthol/Lanolin/Calamine/Znox 113 GM Tube 1 APPLIC TOPICAL ×3 (05:30→21:17)
[2018-03-30] MEDS: Nystatin Powder 15gm Bottle 1 APPLIC TOPICAL ×2 (05:31→21:17)
[2018-03-30] MEDS: Glycerin/Hypromellose/PEG400 15 ml Bottle 1 DRP EACH EYE ×2 (05:31→18:04)
[2018-03-30] MEDS: Chlorhexidine 480 ML 15 ML PO ×2 (05:32→18:11)
[2018-03-30] MEDS: NYSTATIN 500,000 UNIT/5 ML UDC 100000 UNIT PO ×4 (05:35→21:15)
[2018-03-30 05:57] LABS: Absolute Lymphocyte Count 1.04 X10^3/ul (0.83-4.51); Absolute Neutrophil Count 2.4 X10^3/uL (2.0-7.7); Basophil# 0.01 X10^3/uL; Basophil% 0.2 % (0-1); Eosinophil# 0.29 X10^3/uL; Eosinophils% 7.2 % (0-5); Hematocrit 23.1 % (40-54); Hemoglobin 7.4 g/dl (13.0-16.5); Lymphocyte # 1.04 X10^3/ul (4.0); Lymphocyte % 25.8 % (19-41); Mean Corpuscular Hgb 28.4 pg (27.0-32.0); Mean Corpuscular Volume 88.5 fL (80-94); Mean Platelet Vol. 9.2 fl (6.2-12.0); Monocyte# 0.31 X10^3/uL; Monocyte% 7.7 % (0-10); Neutrophil # 2.38 X10^3/uL (2.7-7.7); Neutrophil % 59.1 % (47-70); Platelet Count 199 K/mm3 (150-450); RBC Distribution Width CV 17.3 % (11.6-14.6); RBC Distribution Width SD 56.5 fl (35.1-43.9); Red Blood Count 2.61 M/mm3 (4.6-6.2)
[2018-03-30 05:58] LABS: POSITIVE COUNT NO; POSITIVE DIFFERENTIAL NO; POSITIVE MORPHOLOGY NO
[2018-03-30 06:32] LABS: Anion Gap 10 (5-15); BUN 31 mg/dL (7-18); BUN/Creat Ratio 19.9 RATIO (10-20); Calcium,Total 9.5 mg/dL (8.5-10.1); Chloride 106 mmol/L (98-107); Creatinine, Serum 1.56 mg/dL (0.70-1.30); EST Glomerular Filtration Rate 46 mL/min (>60); Est Glom Filt Rate - Afr Amer 56 mL/min (>60); Estimated Creatinine Clearance 40.31 ml/min; Glucose 107 mg/dL (74-106); Potassium 3.7 mmol/L (3.5-5.1); Sodium Level 139 mmol/L (136-145)
[2018-03-30 07:01] LABS: Bedside Glucose 101 mg/dL (70-110)
[2018-03-30] MEDS: Ipratropium/Albuterol Sulfate 3 ML AMPUL.NEB INHALATION ×3 (07:20→19:54)
[2018-03-30] MEDS: 0.9% Normal Saline 1,000 ML 100 ML IV ×2 (07:21→17:58)
[2018-03-30 09:45] LABS: Bedside Glucose 109 mg/dL (70-110)
--- NOTE | 2018-03-30 11:03 | NURSING ---
hold therapy today 03/30 for pt condition, reevaluate in AM
[2018-03-30] MEDS: Pivot 1.5 Cal 1,000 ML 55 ML GT (13:16)
[2018-03-31] VITALS (8 sets, daily range): BP systolic 106–157; BP diastolic 60–87; PULSE 86–98; RESP 18–20; TEMP 36.6; O2SAT 99–100
[2018-03-31] MEDS: 0.9% Normal Saline 1,000 ML 100 ML IV ×2 (04:02→14:00)
[2018-03-31] MEDS: Ipratropium/Albuterol Sulfate 3 ML AMPUL.NEB INHALATION ×3 (05:35→20:30)
[2018-03-31] MEDS: Docusate Sodium 100 MG/10 ML UDC GT ×2 (06:44→17:46)
[2018-03-31] MEDS: LANSOPRAZOLE 15 MG CAPSULE.DR 30 MG GT (06:44)
[2018-03-31] MEDS: Metoprolol Tartrate 25 MG Tablet 12.5 MG GT ×2 (06:44→17:47)
[2018-03-31] MEDS: Ferrous Sulfate 300 MG/5 ML UDC GT ×2 (06:45→17:46)
[2018-03-31] MEDS: Glycerin/Hypromellose/PEG400 15 ml Bottle 1 DRP EACH EYE ×2 (06:45→17:49)
[2018-03-31] MEDS: Chlorhexidine 480 ML 15 ML PO ×2 (06:46→17:47)
[2018-03-31] MEDS: NYSTATIN 500,000 UNIT/5 ML UDC 100000 UNIT PO ×4 (06:46→21:13)
[2018-03-31] MEDS: Acetaminophen 650 MG/20 ML UDC GT (06:48)
[2018-03-31] MEDS: Nystatin Powder 15gm Bottle 1 APPLIC TOPICAL ×2 (06:53→21:15)
[2018-03-31] MEDS: Menthol/Lanolin/Calamine/Znox 113 GM Tube 1 APPLIC TOPICAL ×3 (06:53→21:12)
[2018-03-31 07:05] LABS: Hematocrit 22.5 % (40-54); Hemoglobin 7.3 g/dl (13.0-16.5)
[2018-03-31 07:35] LABS: Bedside Glucose 104 mg/dL (70-110)
[2018-03-31] MEDS: Heparin Injection (Vial) 5,000 UNIT/ML VIAL 5000 UNIT SC ×2 (08:28→17:51)
[2018-03-31] MEDS: Pivot 1.5 Cal 1,000 ML 35 ML GT (14:00)
--- NOTE | 2018-03-31 15:49 | RAD_ITS ---
STUDY: X-RAY CHEST REASON FOR EXAM: Male, 78 years old. Tachypnea, cough, trach TECHNIQUE: Single AP portable view of the chest. COMPARISON: 03/29/2018 FINDINGS: Tracheostomy catheter tip remains over superior to the kianna in stable position. Stable metallic density right medial upper abdomen. Compression of basilar parenchyma, probable atelectasis left base.. There is no demonstrated pleural abnormality. Normal size heart. Normal mediastinum and maximilian. Normal visualized pulmonary arteries. There is atherosclerotic calcification of the aortic arch with tortuosity. There are diffuse degenerative changes of the visualized thoracic spine. There is degenerative osteoarthritis of the bilateral shoulders. Status post ORIF left humerus. Deformity of the right scapula is stable. There is no demonstrated abnormality of the visualized soft tissue structures of the upper abdomen. RAD/Chest 1 View (Portable) IMPRESSION: Tracheostomy catheter in good position. Compression of basilar parenchyma, atelectasis possible early infiltrate particularly in the left base. Prior surgical intervention and likely posttraumatic changes. Electronically Signed: Santa Travis MD at 4:27 EDT , Service support ,
--- NOTE | 2018-03-31 16:15 | RAD_ITS ---
STUDY: X-RAY - ABDOMEN/PELVIS REASON FOR EXAM: Male, 78 years old. Recently had ruptured AAA, became agitated. TECHNIQUE: Single AP view of the abdomen / pelvis. Portable COMPARISON: CT abdomen and pelvis 01/11/2018. FINDINGS: There is an unremarkable bowel gas pattern. There is no demonstrated free abdominal air supine image. Surgical changes left abdomen corresponding to provided history. Normal soft tissue structures. There are diffuse degenerative changes of the visualized lumbar spine. Levoscoliosis. RAD/Abdomen Single View (Portable) IMPRESSION: Normal x-ray examination of the abdomen and pelvis. Other nonacute findings as outlined above. Electronically Signed: Santa Travis MD at 4:31 EDT , Service support ,
[2018-03-31 16:45] LABS: Absolute Lymphocyte Count 1.76 X10^3/ul (0.83-4.51); Absolute Neutrophil Count 2.2 X10^3/uL (2.0-7.7); Basophil# 0.01 X10^3/uL; Basophil% 0.2 % (0-1); Eosinophil# 0.27 X10^3/uL; Eosinophils% 5.9 % (0-5); Hematocrit 23.7 % (40-54); Hemoglobin 7.5 g/dl (13.0-16.5); Lymphocyte # 1.76 X10^3/ul (4.0); Lymphocyte % 38.7 % (19-41); Mean Corp Hgb Conc 31.6 g/gl (32-36); Mean Corpuscular Hgb 27.9 pg (27.0-32.0); Mean Corpuscular Volume 88.1 fL (80-94); Monocyte# 0.36 X10^3/uL; Monocyte% 7.9 % (0-10); Neutrophil # 2.15 X10^3/uL (2.7-7.7); Neutrophil % 47.3 % (47-70); Platelet Count 186 K/mm3 (150-450); RBC Distribution Width CV 17.1 % (11.6-14.6); RBC Distribution Width SD 55.6 fl (35.1-43.9); Red Blood Count 2.69 M/mm3 (4.6-6.2); White Blood Count 4.6 K/mm3 (4.4-11.0)
[2018-03-31 16:46] LABS: POSITIVE COUNT NO; POSITIVE DIFFERENTIAL NO; POSITIVE MORPHOLOGY NO
[2018-03-31 17:09] LABS: Anion Gap 7 (5-15); BUN 23 mg/dL (7-18); BUN/Creat Ratio 19.2 RATIO (10-20); Calcium,Total 8.7 mg/dL (8.5-10.1); Chloride 111 mmol/L (98-107); EST Glomerular Filtration Rate 62 mL/min (>60); Est Glom Filt Rate - Afr Amer 75 mL/min (>60); Glucose 99 mg/dL (74-106); Potassium 3.4 mmol/L (3.5-5.1); Sodium Level 140 mmol/L (136-145)
[2018-03-31 18:56] LABS: Bacteria 0 SEEN /hpf (None Seen); Mucous, Urine 0 SEEN /hpf (<or=2+); White Blood Cells 0 SEEN /hpf (0-5)
[2018-03-31 19:00] LABS: Color, Urine Yellow (Yellow); Glucose, Dipstick Normal (Normal); Ketone-Dipstick Negative (Negative); Leukocyte Esterase-Dipstick Negative /ul (Negative); Nitrite-Dipstick Negative (Negative); Occult Blood-Urine 10 /ul (Negative); Protein-Dipstick 15 mg/dl (Negative); Specific Gravity, Urine 1.015 (1.002-1.030); Urine Bilirubin Dipstick Negative (Negative); Urine Clarity Sl. Cloudy (Clear); Urine Urobilinogen 1 mg/dl (Normal)
[2018-03-31 19:06] LABS: Red Blood Cells-Urine 0-5 SEEN /hpf (0-5); Squamous Epithelial Cells - UA 0-5 SEEN /hpf (0-5)
--- NOTE | 2018-03-31 20:03 | NURSING ---
Dr. Gustafson notified of xray results and urine results. Also notified that family states that he is more confused and combative. New orders given.
--- NOTE | 2018-03-31 20:30 | NURSING ---
Family in room at this time. Family aware of all new orders given.
[2018-03-31] MEDS: Piperacil/Tazobactam 3.375 GM/50 ML ML IV (21:01)
--- NOTE | 2018-03-31 21:15 | NURSING ---
Per orders patient's tube feed adjusted to 45cc/hr at this time. PEG tube placement verified at this time. Patient has no residuals.
--- NOTE | 2018-03-31 22:14 | CPS ---
inner cannula coated with thick secretions, called RN for another inner cannula to replace this one which was partial clogged with mucus.
[2018-03-31] MEDS: Albuterol 2.5 MG/3 ML VIAL.NEB. INHALATION (23:25)
[2018-04-01 02:00] VITALS: BP 148/72; PULSE 103; O2SAT 95
--- NOTE | 2018-04-01 02:00 | NURSING ---
This nurse called into room by family. Family member sitting by bedside with patient. Patient noted to have eyes open staring ahead. Patient very diaphoretic not responding to verbal stimuli. Patient breathing shallowly with periods of apnea. Sternal rub done. Patient responding to sternal rub but then becoming unresponsive to verbal stimuli. Unable to answer questions at this time. Patient with jerky movements to limbs. BP 148/72 P 103 O2 95 via 6 L trach collar. BS 121 SUPERVISOR IN CIRCUIT TESTING called at this time. Dr. Lewis in to room. Dr. Lewis discussing options with family. Family deciding to send patient to ER at this time to get further evaluated. Orders given by Dr. Lewis to send patient down to ER.
[2018-04-01 02:05] VITALS: BP 128/92; PULSE 79; O2SAT 92
[2018-04-01 02:11] LABS: Bedside Glucose 121 mg/dL (70-110)
--- NOTE | 2018-04-01 02:34 | NURSING ---
Addendum entered by Zohra Mesa 04/01/18 03:01: Report on medications given to JJ Elizabeth down in ER. Original Note: Patient taken down to ER in bed. Family present. Report given to JJ Moreno in ER.
--- NOTE | 2018-04-01 08:52 | DCINST_ITS ---
- Discharge Diagnoses Current Active Problems: Current Active and Chronic Problems HCAP (healthcare-associated pneumonia) (Acute) Anemia (Acute) Unresponsive state (Acute) You will use the following diet at home:: Other - NPO. Weight Bearing Status: Weight bearing as tolerated Call your doctor if you observe: Fever of 101 or Higher, Inability to urinate, Inability to have a bowel movement, Shortness of breath, Chest pain, Uncontrolled pain Allergies/Adverse Reactions: Allergies famotidine [From Pepcid] Adverse Reaction (Verified 04/01/18 03:17) Low blood pressure metoclopramide [From Reglan] Adverse Reaction (Verified 04/01/18 03:17) Other Medications to take at Discharge Chlorhexidine [(None)] 15 ml PO BID 03/28/18 Docusate Sodium [COLACE LIQUID] 100 mg GT BID 03/28/18 Ferrous Sulfate Syrup 325 mg GT BID 03/28/18 Heparin Injection 5,000 units SC BID 03/28/18 Ipratropium/Albuterol Sulfate [Duoneb] 3 ml INHALATION TID 03/28/18 Lansoprazole [Prevacid] 30 mg GT DAILY 03/28/18 Metoprolol Tartrate [Lopressor (Beta Dillon)] 12.5 mg GT BID 03/28/18 Nystatin 100,000 unit PO 4X/DAY 03/28/18 Propylene Glycol/Peg 400/Pf [Systane 0.3-0.4% Eye Drops] 1 each OP BID 03/28/18 Primary Care Physician: Jack Olmedo MD [Primary Care Provider] - Please follow up with your Primary Care Physician in: 1 week. Test Results: Test results from this visit will be discussed in further detail at your follow- up appointment, if applicable. Proposed Discharge Date: 04/01/18
--- NOTE | 2018-04-01 08:54 | DS.PCM_ITS ---
Discharge Date and Diagnosis - Problem List Patient Problems: Active and Suspected Problems HCAP (healthcare-associated pneumonia) (Acute) Anemia (Acute) Unresponsive state (Acute) Date of Admission: 03/28/18 Date of Discharge: 04/01/18 - Primary Discharge Diagnosis Active and Suspected Problems HCAP (healthcare-associated pneumonia) (Acute) Anemia (Acute) Unresponsive state (Acute) - Secondary Discharge Diagnosis Chronic Problems Hyperlipidemia (Chronic) Iron deficiency anemia (Chronic) GERD (gastroesophageal reflux disease) (Chronic) Dysphagia (Chronic) Coronary artery disease (Chronic) Hypertension (Chronic) Hospital Course and Treatment Operations: None Procedures: None Summary of Care Provided: The patient is a 78 year old Male with below past medical history hospitalized for ruptured abdominal aortic aneurysm, underwent repair 01/12/[address] Paniagua, complicated by cardiac arrest, anoxic encephalopathy, admitted [facility], then transferred to TCU for rehabilitation, strengthening, prior to alf care placement. Resident's prognosis is poor. Discharge to [facility] Emergency Department for evaluation and admission to Hospital. Patient Problems: Active and Suspected Problems HCAP (healthcare-associated pneumonia) (Acute) Anemia (Acute) Unresponsive state (Acute) - Physical Exam Vital Signs Temp Pulse Resp BP Pulse Ox 97.8 F 79 18 128/92 H 92 03/31/18 16:00 04/01/18 02:05 03/31/18 23:26 04/01/18 02:05 04/01/18 02:05 Oxygen Flow Rate (L/min) 6 Oxygen Delivery Method Trach Collar Weight: 73.028 kg Body Mass Index (BMI) 22.4 Intake and Output for Last 24 Hours 03/30/18 03/31/18 04/01/18 23:59 23:59 23:59 Intake Total 2306 / 2306 1011 / 1011 Output Total 20 / 20 Balance 2306 / 2306 991 / 991 Microbiology Past 72 Hours 03/31/18 18:50 Urine Culture - Preliminary Urine, Catheterized GNR lactose perianesthesia nurse Laboratory Tests Past 24 Hrs 03/31/18 03/31/18 03/31/18 16:35 16:35 18:50 WBC 4.6 RBC 2.69 L Hgb 7.5 L Hct 23.7 L MCV 88.1 MCH 27.9 MCHC 31.6 L RDW 17.1 H RDW Differential 55.6 H Plt Count 186 MPV 9.0 Immature Gran % (Auto) 0.000 Neut % (Auto) 47.3 Lymph % (Auto) 38.7 [place] % (Auto) 7.9 Eos % (Auto) 5.9 H Baso % (Auto) 0.2 Absolute Neuts (auto) 2.2 Absolute Lymphs (auto) 1.76 Total Counted Not Reportable Sodium 140 Potassium 3.4 L Chloride 111 H Carbon Dioxide 22.0 Anion Gap 7 BUN 23 H Creatinine 1.20 Estim Creat Clear Calc 52.40 Est GFR (MDRD) Af Amer 75 Est GFR (MDRD) Non-Af 62 BUN/Creatinine Ratio 19.2 Glucose 99 Calcium 8.7 Urine Color Yellow Urine Clarity Sl. Cloudy Urine pH 6.0 Ur Specific [place] 1.015 Urine Protein 15 H Urine Glucose (UA) Normal Urine Ketones Negative Urine Occult Blood 10 H Urine Nitrite Negative Urine Bilirubin Negative Urine Urobilinogen 1 H Ur Leukocyte Esterase Negative Urine RBC 0-5 SEEN Urine WBC 0 SEEN Ur Squamous Epith Cells 0-5 SEEN Urine Bacteria 0 SEEN Urine Mucus 0 SEEN POC Glucose 04/01/18 02:03 POC Glucose 121 H Discharge Diet: - - NPO. Weight Bearing Status: Weight bearing as tolerated Call your doctor if you observe: Fever of 101 or Higher, Inability to urinate, Inability to have a bowel movement, Shortness of breath, Chest pain, Uncontrolled pain Home Medications: Medications to take at Discharge Chlorhexidine [(None)] 15 ml PO BID 03/28/18 Docusate Sodium [COLACE LIQUID] 100 mg GT BID 03/28/18 Ferrous Sulfate Syrup 325 mg GT BID 03/28/18 Heparin Injection 5,000 units SC BID 03/28/18 Ipratropium/Albuterol Sulfate [Duoneb] 3 ml INHALATION TID 03/28/18 Lansoprazole [Prevacid] 30 mg GT DAILY 03/28/18 Metoprolol Tartrate [Lopressor (Beta Dillon)] 12.5 mg GT BID 03/28/18 Nystatin 100,000 unit PO 4X/DAY 03/28/18 Propylene Glycol/Peg 400/Pf [Systane 0.3-0.4% Eye Drops] 1 each OP BID 03/28/18 Primary Care Physician: Jack Olmedo MD [Primary Care Provider] - Please follow up with your Primary Care Physician in: 1 week. Disposition: Acute care Hospital Minutes spent on discharge:: 30 Patient Condition:: Critical Medical Necessity - Tobacco Use Smoking Status: Never smoker Tobacco Use: Non-smoker Meaningful Use Info Meaningful Use Diagnoses (Choose all that apply): None applicable
--- NOTE | 2018-04-10 13:21 | MDS.RN ---
Information for the mds was obtained from review of the clinical record, interview of resident, staff, and direct observation of resident's care. resident was non -ambulatory during lookback period.
== END 2018-04-01 06:29 | disposition short-term general hospital (02) | DRG 949 ==
PROVIDERS: Family Medicine; Admitting Provider Family Medicine Geriatric Medicine; Family Provider Family Medicine; PCP Family Medicine; Referring Provider Family Medicine Geriatric Medicine; Visit Provider Family Medicine Geriatric Medicine
DX: Z48.812 Encounter for surgical aftercare following surgery on the circulatory system (principal); I71.3 Abdominal aortic aneurysm, ruptured; D65 Disseminated intravascular coagulation [defibrination syndrome]; J18.9 Pneumonia, unspecified organism; G93.1 Anoxic brain damage, not elsewhere classified; D50.9 Iron deficiency anemia, unspecified; Z86.74 Personal history of sudden cardiac arrest; I25.10 Atherosclerotic heart disease of native coronary artery without angina pectoris; B37.9 Candidiasis, unspecified; K21.9 Gastro-esophageal reflux disease without esophagitis; E78.5 Hyperlipidemia, unspecified; I10 Essential (primary) hypertension; Y95 Nosocomial condition
CPT/HCPCS: 31720; 36415; 71045; 74018; 80048; 80076; 81001; 82962; 84484; 85014; 85018; 85025; 87077; 87086; 87088; 87186; 92507; 92610; 93005; 94640; 95819; 97110; 97162; 97167; 97535; 97802; 97803; 99251; J7030; A4216; G0463

== ENCOUNTER 2018-04-01 02:28 | Inpatient (IN) | payer MEDICARE, SELFPAY ==
[2018-04-01] VITALS (25 sets, daily range): BP systolic 87–140; BP diastolic 54–81; PULSE 80–97; RESP 15–34; TEMP 36.3–36.8; O2SAT 94–99; BMI 25.0; BMI 25.6; BMI 25.5
--- NOTE | 2018-04-01 02:37 | RAD_ITS ---
STUDY: X-RAY CHEST REASON FOR EXAM: Male, 78 years old. Altered mental status TECHNIQUE: Single AP portable view of the chest. Images marked best images possible COMPARISON: March 29 and 2017 FINDINGS: Tracheostomy catheter in stable position. There are superimposed monitor leads. There is diffuse interstitial disease in the lung bases with compression of the basilar parenchyma. Mild elevation of the right hemidiaphragm. Small metallic density over the right medial upper lobe is stable. There is no demonstrated pleural abnormality. Normal size heart. Normal mediastinum and maximilian. Normal visualized pulmonary arteries. There is atherosclerotic calcification of the aortic arch with tortuosity. Obscured thoracic spine. Normal visualized ribs, clavicles, and shoulders. There is no demonstrated abnormality of the visualized soft tissue structures of the upper abdomen. RAD/Chest 1 View (Portable) IMPRESSION: Suspect bibasilar atelectasis and or infiltrates, slightly more pronounced on current examination. Electronically Signed: Santa Travis MD at 3:23 EDT , Service support ,
--- NOTE | 2018-04-01 02:37 | EKG12_ITS ---
Test Reason : ALT LOC Blood Pressure : / mmHG Vent. Rate : 090 BPM Atrial Rate : 090 BPM P-R Int : 150 ms QRS Dur : 088 ms QT Int : 386 ms P-R-T Axes : 028 -18 -21 degrees QTc Int : 472 ms Sinus rhythm with occasional Premature ventricular complexes Otherwise normal ECG Confirmed by MOY GEE ([id number]), non linear editor KATHY SILVA ([id number]) on 04/04/2018 8:39:18 AM Referred By: JUAN JOSE Confirmed By:MOY GEE
--- NOTE | 2018-04-01 02:37 | CT_ITS ---
STUDY: CT BRAIN WITHOUT CONTRAST REASON FOR EXAM: Male, 78 years old. Change in mental status, patient became unresponsive. History of hypertension, CAD, hypoxic encephalopathy RADIATION DOSAGE (If Supplied By Facility): CTDIvol = ( 44.99 ) mGy, DLP = ( 779.24 ) mGycm TECHNIQUE: Transaxial CT imaging of the brain was performed without administration of intravenous contrast material. Individualized dose optimization techniques were used for this CT. COMPARISON: CT brain noncontrast 04/02/2016. FINDINGS: Normal soft tissue structures. Normal calvarium. There is mild cerebral atrophy with widening of the extra-axial spaces and ventricular dilatation. There are areas of decreased attenuation within the white matter tracts of the supratentorial brain, consistent with microvascular disease changes. Remote left lacunar infarct. Normal brainstem. Normal cerebellum. There is no intracranial hemorrhage. There are no findings of an acute ischemic infarction. Gaffney opacification right sphenoid sinus, mucosal thickening left maxillary sinus. New opacification of the bilateral inferior mastoid air cells. Fracture through the anterior and posterior lateral left maxillary antrum, not included on previous examination. No adjacent soft tissue swelling. CT/Brain/Head without Contrast IMPRESSION: Chronic involutional changes of the brain. New lateral mastoiditis and interval development of chronic sinusitis. Remote injury to the left maxillary sinus suspected. There is no acute intracranial pathology. Electronically Signed: Santa Travis MD at 4:01 EDT , Service support ,
--- NOTE | 2018-04-01 02:41 | ED.DCSUM_ITS ---
- ER Visit Summary Date of Service: 04/01/18 Chief Complaint: Change in mental status History of Present Illness: The patient is a 78 M with rather significant complex recent medical history presents to the emergency department from the TCU with change in mental status. The patient was initially seen here the first week of January. At that time, he had a ruptured 6 cm AAA. He was life flighted to [facility]. He underwent emergency aortic grafting. His postoperative course was complicated by multiple cardiac arrests. Patient now has diagnosis of hypoxic encephalopathy. He has a trach and a PEG. He was hospitalized at an LTAC, but then had another a few bouts of cardiac arrest. He was transferred back to [facility]. It was thought that it may been secondary to a vasovagal syndrome. He was evaluated by elective physiology who did not recommend any further intervention. The patient was transferred here to our hospital 3 days ago. The family states that he has been more conversive, but does have some underlying delirium. Tonight, he had an episode where he was more unresponsive. He did not lose pulses. There is been no recent change in medications. Physical Examination: Afebrile, vitals unremarkable. Male who appears older than stated age. Patient does not follow commands. Head is normocephalic. Pupils are equal round reactive. Neck is supple. Trach is intact. No purulent drainage. Lungs are diminished in the bases. Abdomen is soft, mildly tender without rebound or guarding, incision is clean dry and intact. The patient moves all 4 extremities. His examination is nonfocal. Test Results: [] Emergency Department Course and Treatment: The patient has underlying hypoxic encephalopathy. He has had worsening mental status and what sounds like delirium. Metabolic workup was pursued. His head CT was unchanged. Screening labs do demonstrate anemia and leukopenia. His x-ray is concerning for a right lower lobe infiltrate and definite looks worse than it did 2 days ago. Patient has a significant history of aspiration. He actually had aspiration pneumonia while he was in the LTAC. He is afebrile here. I do feel that this patient is going to require IV antibiotics and further evaluation including neurology consult given his repeated delirium and what sounds like central apneic episodes. Patient was discussed with the hospitalist. Treatment Plan: [] Disposition: Admission Impression: 1. Delirium 2. Aspiration pneumonia This note was generated with [employer] software. It may contain incorrect words, spelling, and punctuation that were not noted in review of the chart prior to signing ED Disposition - Plan for ED Patient: Chief Complaint: Alt LOC Referrals: Jack Olmedo MD [Primary Care Provider] -
[2018-04-01 03:05] LABS: Absolute Lymphocyte Count 1.44 X10^3/ul (0.83-4.51); Absolute Neutrophil Count 2.1 X10^3/uL (2.0-7.7); Basophil# 0.01 X10^3/uL; Basophil% 0.2 % (0-1); Eosinophil# 0.27 X10^3/uL; Eosinophils% 6.4 % (0-5); Hematocrit 21.4 % (40-54); Hemoglobin 6.8 g/dl (13.0-16.5); Lymphocyte # 1.44 X10^3/ul (4.0); Lymphocyte % 34.1 % (19-41); Mean Corp Hgb Conc 31.8 g/gl (32-36); Mean Corpuscular Hgb 28.8 pg (27.0-32.0); Mean Corpuscular Volume 90.7 fL (80-94); Mean Platelet Vol. 8.8 fl (6.2-12.0); Monocyte# 0.42 X10^3/uL; Neutrophil # 2.07 X10^3/uL (2.7-7.7); Neutrophil % 49.1 % (47-70); Platelet Count 212 K/mm3 (150-450); RBC Distribution Width SD 53.9 fl (35.1-43.9); Red Blood Count 2.36 M/mm3 (4.6-6.2); White Blood Count 4.2 K/mm3 (4.4-11.0)
[2018-04-01 03:06] LABS: POSITIVE COUNT NO; POSITIVE DIFFERENTIAL NO; POSITIVE MORPHOLOGY NO
[2018-04-01 03:19] LABS: ALB/GLOB Ratio 0.5 RATIO (0.9-2.4); AST(SGOT) 21 U/L (15-37); Alanine Aminotransfer ALT/SGPT 18 U/L (16-61); Albumin, Serum 2.3 g/dL (3.2-5.0); Alkaline Phosphatase 112 U/L (45-117); Anion Gap 8 (5-15); BUN 25 mg/dL (7-18); BUN/Creat Ratio 19.7 RATIO (10-20); Chloride 109 mmol/L (98-107); Creatinine, Serum 1.27 mg/dL (0.70-1.30); EST Glomerular Filtration Rate 58 mL/min (>60); Est Glom Filt Rate - Afr Amer 71 mL/min (>60); Globulin 4.5 g/dL (2.2-4.2); Glucose 92 mg/dL (74-106); Potassium 3.9 mmol/L (3.5-5.1); Protein, Total 6.8 g/dL (6.4-8.2); Sodium Level 142 mmol/L (136-145)
[2018-04-01] MEDS: Piperacil/Tazobactam 3.375 GM/50 ML ML IV ×3 (04:14→21:40)
--- NOTE | 2018-04-01 04:20 | PCM.HP.STD ---
Problem List (1) HCAP (healthcare-associated pneumonia) Status: Acute (2) Anemia Status: Acute Qualifiers: Anemia type: unspecified type Qualified Code(s): D64.9 - Anemia, unspecified (3) Unresponsive state Status: Acute (4) Abdominal aortic aneurysm, ruptured Status: Acute (5) Anoxic encephalopathy Status: Acute (6) Hyperlipidemia Status: Chronic Qualifiers: Hyperlipidemia type: unspecified Qualified Code(s): E78.5 - Hyperlipidemia, unspecified (7) Iron deficiency anemia Status: Chronic Qualifiers: Iron deficiency anemia type: unspecified iron deficiency Qualified Code(s): D50.9 - Iron deficiency anemia, unspecified (8) GERD (gastroesophageal reflux disease) Status: Chronic Qualifiers: Esophagitis presence: esophagitis presence not specified Qualified Code(s): K21.9 - Gastro-esophageal reflux disease without esophagitis (9) Dysphagia Status: Chronic Qualifiers: Dysphagia type: oropharyngeal phase Qualified Code(s): R13.12 - Dysphagia, oropharyngeal phase (10) Coronary artery disease Status: Chronic Qualifiers: Coronary Disease-Associated Artery/Lesion type: unspecified vessel or lesion type [place] vs. transplanted heart: unspecified whether [place] or transplanted heart Associated angina: angina presence unspecified Qualified Code(s): I25.10 - Atherosclerotic heart disease of [place] coronary artery without angina pectoris (11) Hypertension Status: Chronic Qualifiers: Hypertension type: essential hypertension Qualified Code(s): I10 - Essential (primary) hypertension History of Present Illness Date of Admission: 04/01/18 Chief Complaint: Recurrent unresponsive events, more confused per family The patient is a 78 y/o M w/ PMHx: HTN, HLD, CAD, GERD, Recent prolonged hospitalization secondary to onset 01/11/18 syncope w/ L flank pain, diaphoresis and nausea with CT scan of abdomen/pelvis w/ ruptured abdominal aortic aneurysm prompting transition to [facility] with emergency AAA repair w/ serial CODE BLUE (x5) with serial unresponsive episodes, required trach, peg who was transitioned to the TCU for further therapies once cleared from LTAC who now presents to the [facility] ED on 04/01/18 following recurrent unresponsive episode where he is noted to stare off, less interactive, 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 Discussion with family and decision to transition to the ED for further evaluation. Family also noting upon patient evaluation that he has been having increased confusion and less responsiveness baseline than he was prior and has been appearing to decline over the last 2 weeks. Family notes that he has had a chronic cough since trach and peg placement and notes that he does have frequent mucous plugging. He has also appeared more tight, wheezing than prior. He was also per report supposed to have 1 u PRBC on 04/01/18. In the ED work-up included T 97.3, heart rate 92, BP 108/69, respiratory rate 34, 96% on a trach collar, CBC with WBC set 4.2, hemoglobin 6.8 (decreased from TCU admit 8 Hgb), platelet 212, CMP not market appearing, CT head with chronic involutional changes of the brain and new lateral mastoiditis and interval development of chronic sinusitis, remote injury to the left maxillary sinus suspected with no acute intracranial pathology otherwise, bibasilar atelectasis versus infiltrate slightly more pronounced than prior suspicious for pneumonia. The ED patient administered normal saline, vancomycin and Zosyn. Past Medical History Past Medical History (Chronic Problems): Chronic Problems Hyperlipidemia (Chronic) Iron deficiency anemia (Chronic) GERD (gastroesophageal reflux disease) (Chronic) Dysphagia (Chronic) Coronary artery disease (Chronic) Hypertension (Chronic) Allergies famotidine [From Pepcid] Adverse Reaction (Verified 04/01/18 03:17) Low blood pressure metoclopramide [From Reglan] Adverse Reaction (Verified 04/01/18 03:17) Other Home Medications: Ambulatory Orders Medication Instructions Recorded Chlorhexidine [(None)] 15 ml PO BID 03/28/18 Docusate Sodium [COLACE LIQUID] 100 mg GT BID 03/28/18 Ferrous Sulfate Syrup 325 mg GT BID 03/28/18 Heparin Injection 5,000 units SC BID 03/28/18 Ipratropium/Albuterol Sulfate 3 ml INHALATION TID 03/28/18 [Duoneb] Lansoprazole [Prevacid] 30 mg GT DAILY 03/28/18 Metoprolol Tartrate [Lopressor 12.5 mg GT BID 03/28/18 (Beta Dillon)] Nystatin 100,000 unit PO 4X/DAY 03/28/18 Propylene Glycol/Peg 400/Pf 1 each OP BID 03/28/18 [Systane 0.3-0.4% Eye Drops] Surgical History: - - LUE surgery w/ hardware, recent emergent AAA repair, trach, PEG. Psychiatric History: No pertinent psych hx Lives: Shelter Smoking Status: Never smoker Tobacco Use: Non-smoker Alcohol: None Drugs: None - *Family History Maternal History Items: - - No marked maternal or paternal family history reported including HD, DM, CA. Paternal History Items: - - No marked maternal or paternal family history reported including HD, DM, CA. Review of Systems Constitutional: Reports: Malaise, Weakness, Fatigue. Denies: Chills, Fever, Weight Change HEENT: Denies: Head Aches, Sinus Congestion, Sinus Drainage Cardiovascular: Denies: Chest Pain, Palpitations Respiratory: Reports: Shortness of Breath. Denies: Cough, Shortness of breath at rest, Sputum production Gastrointestinal: Denies: Abdominal Pain, Nausea, Vomiting Genitourinary: Denies: Dysuria Musculoskeletal: Reports: Back Pain. Denies: Joint Pain, Joint Tenderness Skin: Denies: Rash, Wounds Neurological: Reports: Confusion, Difficulty swallowing. Denies: Focal weakness, Numbness, Tingling Psychiatric: Denies: Anxiety, Depression, Homicidal Ideations, Suicidal Ideations Hematologic/ Lymphatic: Reports: Anemia. Denies: Easy Bruising, Easy Bleeding VTE Information - Inpt Only VTE Present on Admission: No VTE Mechan Device Prophylaxis: SCD's VTE Pharm Prophylaxis ordered?: Yes Patient Problems: Active and Suspected Problems Abdominal aortic aneurysm, ruptured (Acute) Cardiac arrest (Acute) Anoxic encephalopathy (Acute) Acute kidney injury (Acute) Tachycardia (Acute) DIC (disseminated intravascular coagulation) (Acute) Ileus (Acute) HCAP (healthcare-associated pneumonia) (Acute) Anemia (Acute) Unresponsive state (Acute) Subjective: Seated upright in bed, recent [employer], currently awake, not answering questions, family notes has been intermittently less interactive. Objective: Physical Examination: General: awake, alert, not answering orientation questions, cooperative, seated upright, improved, has been having issues w/ mucous plugging. Skin: normal color, turgor, no icterus, cyanosis. HEENT: AT/NC, EOMI, PERRLA, mildly dry MM, no carotid bruits or JVD noted. Lungs: Diminished BL BL, > bases, poor effort, no rales, ronchi or wheezing. Heart: Regular rate and rhythm; no gallop, rub audible. Abdomen: soft, PEG in place, no apparent TTP, ND, normal BS, no HSM. Extremities: no cyanosis, clubbing, or edema. Neurological: patient awake, alert, not answering orientation questions; cognitive function family notes not baseline intact, usually interactive and able to answer some orientation questions; pupils equally reactive to light and accomodation; cranial nerves II-XII difficult to assess given current status, but appear intact, moving all extremities, weakness diffusely moderately to severely globally decreased. Psychiatric: affect appears flat, staring off, no acute evidence of depressive or anxiety feelings. - Physical Exam Vital Signs Temp Pulse Resp BP Pulse Ox 97.3 F L 82 17 87/54 L 96 04/01/18 02:29 04/01/18 02:32 04/01/18 02:32 04/01/18 02:32 04/01/18 02:32 Oxygen Delivery Method Trach Collar Weight: 174 lb 9.698 oz Body Mass Index (BMI) 25.0 Laboratory Tests Past 24 Hrs 04/01/18 04/01/18 02:58 02:58 WBC 4.2 L RBC 2.36 L Hgb 6.8 L Hct 21.4 L MCV 90.7 MCH 28.8 MCHC 31.8 L RDW 17.0 H RDW Differential 53.9 H Plt Count 212 MPV 8.8 Immature Gran % (Auto) 0.200 Neut % (Auto) 49.1 Lymph % (Auto) 34.1 [place] % (Auto) 10.0 Eos % (Auto) 6.4 H Baso % (Auto) 0.2 Absolute Neuts (auto) 2.1 Absolute Lymphs (auto) 1.44 Total Counted Not Reportable Sodium 142 Potassium 3.9 Chloride 109 H Carbon Dioxide 25.0 Anion Gap 8 BUN 25 H Creatinine 1.27 Estim Creat Clear Calc 49.50 Est GFR (MDRD) Af Amer 71 Est GFR (MDRD) Non-Af 58 L BUN/Creatinine Ratio 19.7 Glucose 92 Calcium 9.0 Total Bilirubin 0.80 AST 21 ALT 18 Alkaline Phosphatase 112 Total Protein 6.8 Albumin 2.3 L Globulin 4.5 H Albumin/Globulin Ratio 0.5 L Assessment/Plan All Active Problems Abdominal aortic aneurysm, ruptured (Acute) Cardiac arrest (Acute) Anoxic encephalopathy (Acute) Acute kidney injury (Acute) Tachycardia (Acute) DIC (disseminated intravascular coagulation) (Acute) Ileus (Acute) HCAP (healthcare-associated pneumonia) (Acute) Anemia (Acute) Unresponsive state (Acute) The patient is a 78 y/o M w/ PMHx: HTN, HLD, CAD, GERD, Recent prolonged hospitalization secondary to onset 01/11/18 syncope w/ L flank pain, diaphoresis and nausea with CT scan of abdomen/pelvis w/ ruptured abdominal aortic aneurysm prompting transition to [facility] with emergency AAA repair w/ serial CODE BLUE (x5) with serial unresponsive episodes, required trach, peg who was transitioned to the TCU for further therapies once cleared from LTAC who now presents to the [facility] ED on 04/01/18 following recurrent unresponsive episode where he is noted to stare off, less interactive, 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 Discussion with family and decision to transition to the ED for further evaluation. (1) HCAP Pneumonia: CXR in the ED w/ bilateral bibasilar atelectasis versus infiltrates although more pronounced than prior film performed recently thus suspect possible pneumonia. Patient was treated for HCAP during recent prolonged admission also. Will admit to PCU given unresponsive episodes additionally, maintain on home oxygen supplementation, continue ATC duonebs, PRN albuterol, maintained on IV Zosyn and Vancomycin, HOB, IS parameters w/ pending sputum cultures and urine antigens as well as respiratory viral panel. (2) Unresponsive Events: Unclear etiology, had notable work-up at OSH following AAA repair and serial CODE BLUE w/ ROS, will maintain on telemetry, maintain on seizure precautions, obtain neuro checks, awaiting EEG results as performed day prior, consult Neurology, CT Head not marked appearing, not candidate for MRI. Family has noted relation to his TFs and his status, will change him back to 2cal, 40 cc w/ flushes with attempts to increase further to goal pending speech and nutrition evaluation secondary to their concerns that he seems to have worsened as this TF is not available at [facility], they will purchase and bring. (3) Recent AAA, s/p repair: 01/11/2018 CT scan of abdomen/pelvis showed ruptured abdominal aortic aneurysm following which patient was intubated, transfused 4 units trauma blood, lifeflighted to [facility] and underwent 01/12/18 emergent AAA repair. (4) Anoxic Brain Injury, s/p serial CODE BLUE x 5: s/p trach, PEG secondary to severity of presentation, oropharyngeal dysphagia w/ continued TFs w/ nutrition consultation. Patient was as noted #2, having serial episodes at [facility] and [facility] w/ similar unresponsive events, awaiting EEG results as performed day prior, seizure precautions. Neurology consulted. (5) CAD: Continue regimen asa, BB, not on statin currently. (6) Normocytic Anemia, Fe Deficiency, Worsened, Recent DIC during [facility] prolonged admission: Admission Hgb 6.8, decreased from prior 8 hgb upon TCU admission, will order 1 u PRBC and repeat Hgb following. (7) Hypertension: Continue home regimen including metoprolol, PRN hydralazine. (8) Hyperlipidemia: Not on statin, defer. (9) GERD: Continue PPI. (10) Oral Thrush: Continue nystatin S/S. (11) DVT Prophylaxis: SCDs, heparin. (12) CODE status: Discussed CODE status at length with family including difference between FULL code, DNR-CCA and DNR-CC status. Following discussions about the differences in these status, requested continued FULL CODE status. Discussed quality of life and likely prolonged course of varying issues given his trach, peg, intermittent unresponsive status. Advanced Care Planning Face to Face Time: 17 minutes. Code Visit Inpatient E&M: 39464 Init Hosp L3 Procedures: 29086 Advncd Care Plan 30 Min
--- NOTE | 2018-04-01 04:36 | HP.PCM_ITS ---
Problem List (1) HCAP (healthcare-associated pneumonia) Status: Acute (2) Anemia Status: Acute Qualifiers: Anemia type: unspecified type Qualified Code(s): D64.9 - Anemia, unspecified (3) Unresponsive state Status: Acute (4) Abdominal aortic aneurysm, ruptured Status: Acute (5) Anoxic encephalopathy Status: Acute (6) Hyperlipidemia Status: Chronic Qualifiers: Hyperlipidemia type: unspecified Qualified Code(s): E78.5 - Hyperlipidemia, unspecified (7) Iron deficiency anemia Status: Chronic Qualifiers: Iron deficiency anemia type: unspecified iron deficiency Qualified Code(s): D50.9 - Iron deficiency anemia, unspecified (8) GERD (gastroesophageal reflux disease) Status: Chronic Qualifiers: Esophagitis presence: esophagitis presence not specified Qualified Code(s): K21.9 - Gastro-esophageal reflux disease without esophagitis (9) Dysphagia Status: Chronic Qualifiers: Dysphagia type: oropharyngeal phase Qualified Code(s): R13.12 - Dysphagia, oropharyngeal phase (10) Coronary artery disease Status: Chronic Qualifiers: Coronary Disease-Associated Artery/Lesion type: unspecified vessel or lesion type [place] vs. transplanted heart: unspecified whether [place] or transplanted heart Associated angina: angina presence unspecified Qualified Code(s): I25.10 - Atherosclerotic heart disease of [place] coronary artery without angina pectoris (11) Hypertension Status: Chronic Qualifiers: Hypertension type: essential hypertension Qualified Code(s): I10 - Essential (primary) hypertension History of Present Illness Date of Admission: 04/01/18 Chief Complaint: Recurrent unresponsive events, more confused per family The patient is a 78 y/o M w/ PMHx: HTN, HLD, CAD, GERD, Recent prolonged hospitalization secondary to onset 01/11/18 syncope w/ L flank pain, diaphoresis and nausea with CT scan of abdomen/pelvis w/ ruptured abdominal aortic aneurysm prompting transition to [facility] with emergency AAA repair w/ serial CODE BLUE (x5) with serial unresponsive episodes, required trach, peg who was transitioned to the TCU for further therapies once cleared from LTAC who now presents to the [facility] ED on 04/01/18 following recurrent unresponsive episode where he is noted to stare off, less interactive, 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 Discussion with family and decision to transition to the ED for further evaluation. Family also noting upon patient evaluation that he has been having increased confusion and less responsiveness baseline than he was prior and has been appearing to decline over the last 2 weeks. Family notes that he has had a chronic cough since trach and peg placement and notes that he does have frequent mucous plugging. He has also appeared more tight, wheezing than prior. He was also per report supposed to have 1 u PRBC on 04/01/18. In the ED work-up included T 97.3, heart rate 92, BP 108/69, respiratory rate 34, 96% on a trach collar, CBC with WBC set 4.2, hemoglobin 6.8 (decreased from TCU admit 8 Hgb), platelet 212, CMP not market appearing, CT head with chronic involutional changes of the brain and new lateral mastoiditis and interval development of chronic sinusitis, remote injury to the left maxillary sinus suspected with no acute intracranial pathology otherwise, bibasilar atelectasis versus infiltrate slightly more pronounced than prior suspicious for pneumonia. The ED patient administered normal saline, vancomycin and Zosyn. Past Medical History Past Medical History (Chronic Problems): Chronic Problems Hyperlipidemia (Chronic) Iron deficiency anemia (Chronic) GERD (gastroesophageal reflux disease) (Chronic) Dysphagia (Chronic) Coronary artery disease (Chronic) Hypertension (Chronic) Allergies famotidine [From Pepcid] Adverse Reaction (Verified 04/01/18 03:17) Low blood pressure metoclopramide [From Reglan] Adverse Reaction (Verified 04/01/18 03:17) Other Home Medications: Ambulatory Orders Medication Instructions Recorded Chlorhexidine [(None)] 15 ml PO BID 03/28/18 Docusate Sodium [COLACE LIQUID] 100 mg GT BID 03/28/18 Ferrous Sulfate Syrup 325 mg GT BID 03/28/18 Heparin Injection 5,000 units SC BID 03/28/18 Ipratropium/Albuterol Sulfate 3 ml INHALATION TID 03/28/18 [Duoneb] Lansoprazole [Prevacid] 30 mg GT DAILY 03/28/18 Metoprolol Tartrate [Lopressor 12.5 mg GT BID 03/28/18 (Beta Dillon)] Nystatin 100,000 unit PO 4X/DAY 03/28/18 Propylene Glycol/Peg 400/Pf 1 each OP BID 03/28/18 [Systane 0.3-0.4% Eye Drops] Surgical History: - - LUE surgery w/ hardware, recent emergent AAA repair, trach, PEG. Psychiatric History: No pertinent psych hx Lives: Assisted Smoking Status: Never smoker Tobacco Use: Non-smoker Alcohol: None Drugs: None - *Family History Maternal History Items: - - No marked maternal or paternal family history reported including HD, DM, CA. Paternal History Items: - - No marked maternal or paternal family history reported including HD, DM, CA. Review of Systems Constitutional: Reports: Malaise, Weakness, Fatigue. Denies: Chills, Fever, Weight Change HEENT: Denies: Head Aches, Sinus Congestion, Sinus Drainage Cardiovascular: Denies: Chest Pain, Palpitations Respiratory: Reports: Shortness of Breath. Denies: Cough, Shortness of breath at rest, Sputum production Gastrointestinal: Denies: Abdominal Pain, Nausea, Vomiting Genitourinary: Denies: Dysuria Musculoskeletal: Reports: Back Pain. Denies: Joint Pain, Joint Tenderness Skin: Denies: Rash, Wounds Neurological: Reports: Confusion, Difficulty swallowing. Denies: Focal weakness, Numbness, Tingling Psychiatric: Denies: Anxiety, Depression, Homicidal Ideations, Suicidal Ideations Hematologic/ Lymphatic: Reports: Anemia. 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 Objective: Physical Examination: General: awake, alert, not answering orientation questions, cooperative, seated upright, improved, has been having issues w/ mucous plugging. Skin: normal color, turgor, no icterus, cyanosis. HEENT: AT/NC, EOMI, PERRLA, mildly dry MM, no carotid bruits or JVD noted. Lungs: Diminished BL BL, > bases, poor effort, no rales, ronchi or wheezing. Heart: Regular rate and rhythm; no gallop, rub audible. Abdomen: soft, PEG in place, no apparent TTP, ND, normal BS, no HSM. Extremities: no cyanosis, clubbing, or edema. Neurological: patient awake, alert, not answering orientation questions; cognitive function family notes not baseline intact, usually interactive and able to answer some orientation questions; pupils equally reactive to light and accomodation; cranial nerves II-XII difficult to assess given current status, but appear intact, moving all extremities, weakness diffusely moderately to severely globally decreased. Psychiatric: affect appears flat, staring off, no acute evidence of depressive or anxiety feelings. - Physical Exam Vital Signs Temp Pulse Resp BP Pulse Ox 97.3 F L 82 17 87/54 L 96 04/01/18 02:29 04/01/18 02:32 04/01/18 02:32 04/01/18 02:32 04/01/18 02:32 Oxygen Delivery Method Trach Collar Weight: 174 lb 9.698 oz Body Mass Index (BMI) 25.0 Laboratory Tests Past 24 Hrs 04/01/18 04/01/18 02:58 02:58 WBC 4.2 L RBC 2.36 L Hgb 6.8 L Hct 21.4 L MCV 90.7 MCH 28.8 MCHC 31.8 L RDW 17.0 H RDW Differential 53.9 H Plt Count 212 MPV 8.8 Immature Gran % (Auto) 0.200 Neut % (Auto) 49.1 Lymph % (Auto) 34.1 [place] % (Auto) 10.0 Eos % (Auto) 6.4 H Baso % (Auto) 0.2 Absolute Neuts (auto) 2.1 Absolute Lymphs (auto) 1.44 Total Counted Not Reportable Sodium 142 Potassium 3.9 Chloride 109 H Carbon Dioxide 25.0 Anion Gap 8 BUN 25 H Creatinine 1.27 Estim Creat Clear Calc 49.50 Est GFR (MDRD) Af Amer 71 Est GFR (MDRD) Non-Af 58 L BUN/Creatinine Ratio 19.7 Glucose 92 Calcium 9.0 Total Bilirubin 0.80 AST 21 ALT 18 Alkaline Phosphatase 112 Total Protein 6.8 Albumin 2.3 L Globulin 4.5 H Albumin/Globulin Ratio 0.5 L Assessment/Plan All Active Problems Abdominal aortic aneurysm, ruptured (Acute) Cardiac arrest (Acute) Anoxic encephalopathy (Acute) Acute kidney injury (Acute) Tachycardia (Acute) DIC (disseminated intravascular coagulation) (Acute) Ileus (Acute) HCAP (healthcare-associated pneumonia) (Acute) Anemia (Acute) Unresponsive state (Acute) The patient is a 78 y/o M w/ PMHx: HTN, HLD, CAD, GERD, Recent prolonged hospitalization secondary to onset 01/11/18 syncope w/ L flank pain, diaphoresis and nausea with CT scan of abdomen/pelvis w/ ruptured abdominal aortic aneurysm prompting transition to [facility] with emergency AAA repair w/ serial CODE BLUE (x5) with serial unresponsive episodes, required trach, peg who was transitioned to the TCU for further therapies once cleared from LTAC who now presents to the [facility] ED on 04/01/18 following recurrent unresponsive episode where he is noted to stare off, less interactive, 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 Discussion with family and decision to transition to the ED for further evaluation. (1) HCAP Pneumonia: CXR in the ED w/ bilateral bibasilar atelectasis versus infiltrates although more pronounced than prior film performed recently thus suspect possible pneumonia. Patient was treated for HCAP during recent prolonged admission also. Will admit to PCU given unresponsive episodes additionally, maintain on home oxygen supplementation, continue ATC duonebs, PRN albuterol, maintained on IV Zosyn and Vancomycin, HOB, IS parameters w/ pending sputum cultures and urine antigens as well as respiratory viral panel. (2) Unresponsive Events: Unclear etiology, had notable work-up at OSH following AAA repair and serial CODE BLUE w/ ROS, will maintain on telemetry, maintain on seizure precautions, obtain neuro checks, awaiting EEG results as performed day prior, consult Neurology, CT Head not marked appearing, not candidate for MRI. Family has noted relation to his TFs and his status, will change him back to 2cal, 40 cc w/ flushes with attempts to increase further to goal pending speech and nutrition evaluation secondary to their concerns that he seems to have worsened as this TF is not available at [facility], they will purchase and bring. (3) Recent AAA, s/p repair: 01/11/2018 CT scan of abdomen/pelvis showed ruptured abdominal aortic aneurysm following which patient was intubated, transfused 4 units trauma blood, lifeflighted to [facility] and underwent 01/12/18 emergent AAA repair. (4) Anoxic Brain Injury, s/p serial CODE BLUE x 5: s/p trach, PEG secondary to severity of presentation, oropharyngeal dysphagia w/ continued TFs w/ nutrition consultation. Patient was as noted #2, having serial episodes at [facility] and LTAC w/ similar unresponsive events, awaiting EEG results as performed day prior, seizure precautions. Neurology consulted. (5) CAD: Continue regimen asa, BB, not on statin currently. (6) Normocytic Anemia, Fe Deficiency, Worsened, Recent DIC during [facility] prolonged admission: Admission Hgb 6.8, decreased from prior 8 hgb upon TCU admission, will order 1 u PRBC and repeat Hgb following. (7) Hypertension: Continue home regimen including metoprolol, PRN hydralazine. (8) Hyperlipidemia: Not on statin, defer. (9) GERD: Continue PPI. (10) Oral Thrush: Continue nystatin S/S. (11) DVT Prophylaxis: SCDs, heparin. (12) CODE status: Discussed CODE status at length with family including difference between FULL code, DNR-CCA and DNR-CC status. Following discussions about the differences in these status, requested continued FULL CODE status. Discussed quality of life and likely prolonged course of varying issues given his trach, peg, intermittent unresponsive status. Advanced Care Planning Face to Face Time: 17 minutes. Code Visit Inpatient E&M: 83316 Init Hosp L3 Procedures: 68721 Advncd Care Plan 30 Min
[2018-04-01 06:33] LABS: Magnesium 1.7 mg/dL (1.6-2.6); Phosphorus 3.1 mg/dL (2.5-4.9)
--- NOTE | 2018-04-01 06:47 | PCM.RX.CS ---
Consult Pharmacy has been consulted to manage selected antiobiotic: Vancomycin Type of Consult: New start Suspected Infection: Pneumonia Prior Doses of Antibiotics Received/Current Regimen: Medications Piperacillin Sod/Tazobactam Sod (Zosyn) 3.375 gm in 50 mls @ 12.5 mls/hr IV Q8 [facility] Labs: Sodium 142 mmol/L (136-145) 04/01/18 02:58 Potassium 3.9 mmol/L (3.5-5.1) 04/01/18 02:58 Chloride 109 mmol/L (98-107) H 04/01/18 02:58 Carbon Dioxide 25.0 mmol/L (21.0-32.0) 04/01/18 02:58 Anion Gap 8 (5-15) 04/01/18 02:58 BUN 25 mg/dL (7-18) H 04/01/18 02:58 Creatinine 1.27 mg/dL (0.70-1.30) 04/01/18 02:58 Est GFR (MDRD) Af Amer 71 mL/min (>60) 04/01/18 02:58 Est GFR (MDRD) Non-Af 58 mL/min (>60) L 04/01/18 02:58 BUN/Creatinine Ratio 19.7 RATIO (10-20) 04/01/18 02:58 Glucose 92 mg/dL (74-106) 04/01/18 02:58 Weight used for dosin.2 kg Estimated Creatinine Clearance: 49.5 Goal Trough: 10-15 mcg/mL Pharmacy Plan for Drug Dosing: Pharmacy Service will continue to monitor and adjust dosing as required. Medications Vancomycin HCl 1,500 mg/ (Sodium Chloride) 530 mls @ 250 mls/hr IV Q24H AMBIKA Discontinued Medications Vancomycin HCl 1,250 mg/ (Sodium Chloride) 275 mls @ 167 mls/hr IV X1 ONE Stop: 04/01/18 05:43 Last Admin: 04/01/18 05:00 Dose: 167 mls/hr Follow-Up Labs: Trough Vancomycin Labs to be done on [date and time ordered]: 04/03 @ 0500
[2018-04-01] MEDS: Ipratropium/Albuterol Sulfate 3 ML AMPUL.NEB INHALATION ×5 (08:15→22:40)
--- NOTE | 2018-04-01 10:34 | CASEMGMT ---
Patient is from [facility]. He will return there at d/c. SW did confirm this with family. Renetta MENDEZ MSW
[2018-04-01] MEDS: Heparin Injection (Vial) 5,000 UNIT/ML VIAL 5000 UNIT SC ×2 (10:52→21:40)
[2018-04-01] MEDS: Glycerin/Hypromellose/PEG400 15 ml Bottle 1 DRP EACH EYE ×2 (10:52→21:39)
[2018-04-01] MEDS: Aspirin 81 MG TAB.CHEW GT (10:53)
[2018-04-01] MEDS: Ferrous Sulfate 300 MG/5 ML UDC 325 MG GT ×2 (10:53→21:39)
[2018-04-01] MEDS: Docusate Sodium 100 MG/10 ML UDC GT ×2 (10:53→21:40)
[2018-04-01] MEDS: LANSOPRAZOLE 15 MG CAPSULE.DR 30 MG GT (10:53)
[2018-04-01] MEDS: Metoprolol Tartrate 25 MG Tablet 12.5 MG GT ×2 (10:53→21:40)
[2018-04-01] MEDS: NYSTATIN 500,000 UNIT/5 ML UDC 100000 UNIT PO ×3 (10:54→21:42)
[2018-04-01] MEDS: Chlorhexidine 480 ML 15 ML PO ×2 (10:55→21:40)
--- NOTE | 2018-04-01 14:25 | NS ---
Discussed w/ pt's family nutrition support options. Family would like to use TwoCal HN product as pt best tolerated this formula at outside facility. Explained to family that product is not available at this time and that it would be best to provide pt w/ nutrition support from another formula until TwoCal product is stocked. Family verbalized understanding and is in agreeable to continuing Pivot 1.5 (as was ordered on [facility]) until TwoCal available. Rec start Pivot 1.5 at 15cc/hour and increase by 10cc every 8 hours as pt tolerates until goal rate of 55cc/hour is reached. Would start flushes at 75cc every 4 hours. Increase flushes every 8 hours as tube feeding is increased by 25cc until goal flushes of 175cc are achieved. When at goal rate, tube feeding and flushes will provide 1980 calories, 123 g protein, and 2051cc free fluid per day. Per Fritz in pharmacy, TwoCal product will be available Tuesday. Family made aware. Will continue to follow this patient and monitor tolerance of tube feedings as advanced. Please contact inpatient RD at [phone] w/ further questions or concerns. Meaghan Nevarez MS, RDN, LD
--- NOTE | 2018-04-01 15:04 | PCM.PN.HOSP ---
Patient Problems: Active and Suspected Problems HCAP (healthcare-associated pneumonia) (Acute) Anemia (Acute) Unresponsive state (Acute) Subjective: Patient was seen and examined. Admitted this morning after an unresponsive episode. Patient is sleeping. Family at the bedside. There was some concerns over tube feeds -dietitian consulted, questions answered. No episodes of unresponsiveness noted Vitals have been stable, on trach collar Status post 2 units packed RBC Labs reviewed,follow-up labs in the morning Respiratory panel is pending A/p: Episodes of unresponsiveness, unclear etiology, possible seizures HCAP Chronic anoxic encephalopathy Recent AAA status post repair CAD Hypertension Hyperlipidemia GERD Oral thrush Meds reviewed, will continue with tube feeds, trach collar management, follow-up on neurology consult Vitals/I&O's: Vital Signs Temp Pulse Resp BP Pulse Ox 98.0 F 90 18 122/70 H 97 04/01/18 12:37 04/01/18 12:37 04/01/18 12:37 04/01/18 12:37 04/01/18 12:37 Oxygen Flow Rate (L/min) 7 Oxygen Delivery Method Trach Collar Weight: 81 kg Body Mass Index (BMI) 25.5 Intake and Output for Last 24 Hours 03/30/18 03/31/18 04/01/18 23:59 23:59 23:59 Intake Total 516.8 / 516.8 Balance 516.8 / 516.8 Laboratory Results 04/01/18 02:58: WBC 4.2 L, RBC 2.36 L, Hgb 6.8 L, Hct 21.4 L, MCV 90.7, MCH 28.8, MCHC 31.8 L, RDW 17.0 H, RDW Differential 53.9 H, Plt Count 212, MPV 8.8, Immature Gran % (Auto) 0.200, Neut % (Auto) 49.1, Lymph % (Auto) 34.1, [place] % (Auto) 10.0, Eos % (Auto) 6.4 H, Baso % (Auto) 0.2, Absolute Neuts (auto) 2.1, Absolute Lymphs (auto) 1.44, Total Counted Not Reportable 04/01/18 02:58: Sodium 142, Potassium 3.9, Chloride 109 H, Carbon Dioxide 25.0, Anion Gap 8, BUN 25 H, Creatinine 1.27, Estim Creat Clear Calc 49.50, Est GFR (MDRD) Af Amer 71, Est GFR (MDRD) Non-Af 58 L, BUN/Creatinine Ratio 19.7, Glucose 92, Calcium 9.0, Total Bilirubin 0.80, AST 21, ALT 18, Alkaline Phosphatase 112, Total Protein 6.8, Albumin 2.3 L, Globulin 4.5 H, Albumin/Globulin Ratio 0.5 L 04/01/18 02:58: Phosphorus 3.1, Magnesium 1.7 04/01/18 04:04: Blood Type O POSITIVE, Antibody Screen NEGATIVE, Crossmatch See Detail 04/01/18 04:04: Crossmatch See Detail Current Medications Albuterol Sulfate (Ventolin Aerosols) 2.5 mg INHALATION Q2H PRN PRN PRN Reason: SHORTNESS OF BREATH Albuterol/Ipratropium (Duoneb) 3 ml INHALATION Q4H.RT [facility] Last Admin: 04/01/18 11:25 Dose: 3 ml Aspirin (Aspirin, Baby) 81 mg GT DAILY@0800 [facility] Last Admin: 04/01/18 10:53 Dose: 81 mg Chlorhexidine Gluconate (Peridex) 15 ml PO BID [facility] Last Admin: 04/01/18 10:55 Dose: 15 ml Docusate Sodium (Colace Syrup) 100 mg GT BID [facility] Last Admin: 04/01/18 10:53 Dose: 100 mg Ferrous Sulfate (Ferrous Sulfate Syrup) 325 mg GT BID [facility] Last Admin: 04/01/18 10:53 Dose: 325 mg Heparin Sodium (Porcine) (Heparin Na) 5,000 unit SC BID [facility] Last Admin: 04/01/18 10:52 Dose: 5,000 unit Piperacillin Sod/Tazobactam Sod (Zosyn) 3.375 gm in 50 mls @ 12.5 mls/hr IV Q8 [facility] Last Admin: 04/01/18 13:30 Dose: 12.5 mls/hr Vancomycin HCl 1 mg/ Dextrose 250.02 mls @ 250 mls/hr IV RX TO DOSE PRN; Protocol Vancomycin HCl 1,500 mg/ (Sodium Chloride) 530 mls @ 250 mls/hr IV Q24H [facility] Lansoprazole (Lansoprazole) 30 mg GT DAILY [facility] Last Admin: 04/01/18 10:53 Dose: 30 mg Magnesium Hydroxide (Milk Of Magnesia) 30 ml PO DAILY PRN PRN Reason: Constipation Metoprolol Tartrate (Lopressor (Beta Dillon)) 12.5 mg GT BID [facility] Last Admin: 04/01/18 10:53 Dose: 12.5 mg Nystatin (Nystatin) 100,000 unit PO 4X/DAY [facility] Last Admin: 04/01/18 13:50 Dose: Not Given Ondansetron HCl (Zofran) 4 mg IV Q8H PRN PRN PRN Reason: NAUSEA Promethazine HCl (Phenergan) 12.5 mg IV Q6H PRN PRN PRN Reason: NAUSEA/VOMITING Sodium Chloride () 5 - 30 ml IV UD PRN PRN Reason: SALINE FLUSH Medical Necessity - Tobacco Use Smoking Status: Never smoker Tobacco Use: Non-smoker Assessment/Plan All Active Problems Abdominal aortic aneurysm, ruptured (Acute) Cardiac arrest (Acute) Anoxic encephalopathy (Acute) Acute kidney injury (Acute) Tachycardia (Acute) DIC (disseminated intravascular coagulation) (Acute) Ileus (Acute) HCAP (healthcare-associated pneumonia) (Acute) Anemia (Acute) Unresponsive state (Acute) Code Visit Inpatient E&M: 78261 Subs Hosp L2
--- NOTE | 2018-04-01 15:09 | PN_ITS ---
Patient Problems: Active and Suspected Problems HCAP (healthcare-associated pneumonia) (Acute) Anemia (Acute) Unresponsive state (Acute) Subjective: Patient was seen and examined. Admitted this morning after an unresponsive episode. Patient is sleeping. Family at the bedside. There was some concerns over tube feeds -dietitian consulted, questions answered. No episodes of unresponsiveness noted Vitals have been stable, on trach collar Status post 2 units packed RBC Labs reviewed,follow-up labs in the morning Respiratory panel is pending A/p: Episodes of unresponsiveness, unclear etiology, possible seizures HCAP Chronic anoxic encephalopathy Recent AAA status post repair CAD Hypertension Hyperlipidemia GERD Oral thrush Meds reviewed, will continue with tube feeds, trach collar management, follow-up on neurology consult Vitals/I&O's: Vital Signs Temp Pulse Resp BP Pulse Ox 98.0 F 90 18 122/70 H 97 04/01/18 12:37 04/01/18 12:37 04/01/18 12:37 04/01/18 12:37 04/01/18 12:37 Oxygen Flow Rate (L/min) 7 Oxygen Delivery Method Trach Collar Weight: 81 kg Body Mass Index (BMI) 25.5 Intake and Output for Last 24 Hours 03/30/18 03/31/18 04/01/18 23:59 23:59 23:59 Intake Total 516.8 / 516.8 Balance 516.8 / 516.8 Laboratory Results 04/01/18 02:58: WBC 4.2 L, RBC 2.36 L, Hgb 6.8 L, Hct 21.4 L, MCV 90.7, MCH 28.8, MCHC 31.8 L, RDW 17.0 H, RDW Differential 53.9 H, Plt Count 212, MPV 8.8, Immature Gran % (Auto) 0.200, Neut % (Auto) 49.1, Lymph % (Auto) 34.1, [place] % (Auto) 10.0, Eos % (Auto) 6.4 H, Baso % (Auto) 0.2, Absolute Neuts (auto) 2.1, Absolute Lymphs (auto) 1.44, Total Counted Not Reportable 04/01/18 02:58: Sodium 142, Potassium 3.9, Chloride 109 H, Carbon Dioxide 25.0, Anion Gap 8, BUN 25 H, Creatinine 1.27, Estim Creat Clear Calc 49.50, Est GFR (MDRD) Af Amer 71, Est GFR (MDRD) Non-Af 58 L, BUN/Creatinine Ratio 19.7, Glucose 92, Calcium 9.0, Total Bilirubin 0.80, AST 21, ALT 18, Alkaline Phosphatase 112, Total Protein 6.8, Albumin 2.3 L, Globulin 4.5 H, Albumin/Globulin Ratio 0.5 L 04/01/18 02:58: Phosphorus 3.1, Magnesium 1.7 04/01/18 04:04: Blood Type O POSITIVE, Antibody Screen NEGATIVE, Crossmatch See Detail 04/01/18 04:04: Crossmatch See Detail Current Medications Albuterol Sulfate (Ventolin Aerosols) 2.5 mg INHALATION Q2H PRN PRN PRN Reason: SHORTNESS OF BREATH Albuterol/Ipratropium (Duoneb) 3 ml INHALATION Q4H.RT [facility] Last Admin: 04/01/18 11:25 Dose: 3 ml Aspirin (Aspirin, Baby) 81 mg GT DAILY@0800 [facility] Last Admin: 04/01/18 10:53 Dose: 81 mg Chlorhexidine Gluconate (Peridex) 15 ml PO BID [facility] Last Admin: 04/01/18 10:55 Dose: 15 ml Docusate Sodium (Colace Syrup) 100 mg GT BID [facility] Last Admin: 04/01/18 10:53 Dose: 100 mg Ferrous Sulfate (Ferrous Sulfate Syrup) 325 mg GT BID [facility] Last Admin: 04/01/18 10:53 Dose: 325 mg Heparin Sodium (Porcine) (Heparin Na) 5,000 unit SC BID [facility] Last Admin: 04/01/18 10:52 Dose: 5,000 unit Piperacillin Sod/Tazobactam Sod (Zosyn) 3.375 gm in 50 mls @ 12.5 mls/hr IV Q8 [facility] Last Admin: 04/01/18 13:30 Dose: 12.5 mls/hr Vancomycin HCl 1 mg/ Dextrose 250.02 mls @ 250 mls/hr IV RX TO DOSE PRN; Protocol Vancomycin HCl 1,500 mg/ (Sodium Chloride) 530 mls @ 250 mls/hr IV Q24H [facility] Lansoprazole (Lansoprazole) 30 mg GT DAILY [facility] Last Admin: 04/01/18 10:53 Dose: 30 mg Magnesium Hydroxide (Milk Of Magnesia) 30 ml PO DAILY PRN PRN Reason: Constipation Metoprolol Tartrate (Lopressor (Beta Dillon)) 12.5 mg GT BID [facility] Last Admin: 04/01/18 10:53 Dose: 12.5 mg Nystatin (Nystatin) 100,000 unit PO 4X/DAY [facility] Last Admin: 04/01/18 13:50 Dose: Not Given Ondansetron HCl (Zofran) 4 mg IV Q8H PRN PRN PRN Reason: NAUSEA Promethazine HCl (Phenergan) 12.5 mg IV Q6H PRN PRN PRN Reason: NAUSEA/VOMITING Sodium Chloride () 5 - 30 ml IV UD PRN PRN Reason: SALINE FLUSH Medical Necessity - Tobacco Use Smoking Status: Never smoker Tobacco Use: Non-smoker Assessment/Plan All Active Problems Abdominal aortic aneurysm, ruptured (Acute) Cardiac arrest (Acute) Anoxic encephalopathy (Acute) Acute kidney injury (Acute) Tachycardia (Acute) DIC (disseminated intravascular coagulation) (Acute) Ileus (Acute) HCAP (healthcare-associated pneumonia) (Acute) Anemia (Acute) Unresponsive state (Acute) Code Visit Inpatient E&M: 10964 Subs Hosp L2
[2018-04-01] MEDS: Pivot 1.5 Cal 1,000 ML 15 ML GT (20:23)
[2018-04-02] VITALS (22 sets, daily range): BP systolic 109–138; BP diastolic 60–88; PULSE 76–89; RESP 16–26; TEMP 35.9–36.6; O2SAT 94–100
[2018-04-02] MEDS: Ipratropium/Albuterol Sulfate 3 ML AMPUL.NEB INHALATION ×6 (02:28→22:47)
[2018-04-02 06:05] LABS: Absolute Lymphocyte Count 1.49 X10^3/ul (0.83-4.51); Absolute Neutrophil Count 1.7 X10^3/uL (2.0-7.7); Basophil# 0.01 X10^3/uL; Basophil% 0.3 % (0-1); Eosinophil# 0.33 X10^3/uL; Eosinophils% 8.3 % (0-5); Hematocrit 23.7 % (40-54); Hemoglobin 7.5 g/dl (13.0-16.5); Lymphocyte # 1.49 X10^3/ul (4.0); Lymphocyte % 37.5 % (19-41); Mean Corp Hgb Conc 31.6 g/gl (32-36); Mean Corpuscular Hgb 28.8 pg (27.0-32.0); Mean Corpuscular Volume 91.2 fL (80-94); Mean Platelet Vol. 9.4 fl (6.2-12.0); Monocyte% 10.1 % (0-10); Neutrophil # 1.74 X10^3/uL (2.7-7.7); Neutrophil % 43.8 % (47-70); Platelet Count 212 K/mm3 (150-450); RBC Distribution Width CV 16.8 % (11.6-14.6); RBC Distribution Width SD 53.6 fl (35.1-43.9)
[2018-04-02 06:12] LABS: POSITIVE COUNT NO; POSITIVE DIFFERENTIAL NO; POSITIVE MORPHOLOGY NO
[2018-04-02 06:21] LABS: Anion Gap 10 (5-15); BUN 19 mg/dL (7-18); BUN/Creat Ratio 15.7 RATIO (10-20); Calcium,Total 8.7 mg/dL (8.5-10.1); Chloride 111 mmol/L (98-107); Creatinine, Serum 1.21 mg/dL (0.70-1.30); EST Glomerular Filtration Rate 62 mL/min (>60); Est Glom Filt Rate - Afr Amer 75 mL/min (>60); Estimated Creatinine Clearance 51.95 ml/min; Glucose 98 mg/dL (74-106); Sodium Level 143 mmol/L (136-145)
[2018-04-02] MEDS: Piperacil/Tazobactam 3.375 GM/50 ML ML IV ×3 (06:25→23:26)
[2018-04-02 08:24] LABS: Magnesium 1.6 mg/dL (1.6-2.6); Phosphorus 3.6 mg/dL (2.5-4.9)
[2018-04-02] MEDS: Docusate Sodium 100 MG/10 ML UDC GT ×2 (09:45→21:17)
[2018-04-02] MEDS: Ferrous Sulfate 300 MG/5 ML UDC 325 MG GT ×2 (09:45→21:18)
[2018-04-02] MEDS: LANSOPRAZOLE 15 MG CAPSULE.DR 30 MG GT (09:48)
[2018-04-02] MEDS: Aspirin 81 MG TAB.CHEW GT (09:48)
[2018-04-02] MEDS: Metoprolol Tartrate 25 MG Tablet 12.5 MG GT ×2 (09:49→21:20)
[2018-04-02] MEDS: NYSTATIN 500,000 UNIT/5 ML UDC 100000 UNIT PO ×4 (09:50→21:19)
[2018-04-02] MEDS: Chlorhexidine 480 ML 15 ML PO ×2 (09:52→21:22)
[2018-04-02] MEDS: Heparin Injection (Vial) 5,000 UNIT/ML VIAL 5000 UNIT SC ×2 (09:55→21:18)
[2018-04-02] MEDS: Glycerin/Hypromellose/PEG400 15 ml Bottle 1 DRP EACH EYE ×2 (09:56→21:16)
--- NOTE | 2018-04-02 10:37 | EEG ---
- Electroencephalogram Date of service: 03/31/18 This is an 18 channel electroencephalogram performed on this 78-year-old male with mental status changes history of stroke. Hyperventilation was not performed the patient is unable to follow commands. EKG reference leads and photic simulation was performed. The recording is marred throughout by muscle artifact however background activity appears to be preserved in the 8-12 Hz range with superimposed beta range activity likely medication effect. There are no lateralizing or epileptiform changes, and photic stimulation demonstrates a normal symmetric driving response in the posterior leads. EKG is regular throughout the recording. Impression: Abnormal electroencephalogram due to the presence of beta range activity which is likely medication effect. There is significant muscle artifact throughout the recording which limits its sensitivity however there does not appear to be lateralizing or epileptiform changes.
--- NOTE | 2018-04-02 10:52 | PCM.CONS.GEN ---
Reason for Consult Date of Consultation: 04/02/18 Reason for Consultation: spells History of Present Illness: The patient is a 78 year old M with recurrent spells always associated with tube feeds. had complete cardiology evaluation at [facility] and did not have need for intervention. family describes spells as sudden startle appearance, stop breathing, then would become unresponsive, eyes closed, no shaking. per family his heart rate would go to zero while at [facility]. he's had approximately 8 spells, first of which was 03/09/18. only one spell coded, others he recovered on without cpr. associated diaphoresis The patient is a 78 y/o M w/ PMHx: HTN, HLD, CAD, GERD, Recent prolonged hospitalization secondary to onset 01/11/18 syncope w/ L flank pain, diaphoresis and nausea with CT scan of abdomen/pelvis w/ ruptured abdominal aortic aneurysm prompting transition to [facility] with emergency AAA repair w/ serial CODE BLUE (x5) with serial unresponsive episodes, required trach, peg who was transitioned to the TCU for further therapies once cleared from LTAC who now presents to the 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 Discussion with family and decision to transition to the ED for further evaluation. Family also noting upon patient evaluation that he has been having increased confusion and less responsiveness baseline than he was prior and has been appearing to decline over the last 2 weeks. Family notes that he has had a chronic cough since trach and peg placement and notes that he does have frequent mucous plugging. He has also appeared more tight, wheezing than prior. He was also per report supposed to have 1 u PRBC on 04/01/18. In the ED work-up included T 97.3, heart rate 92, BP 108/69, respiratory rate 34, 96% on a trach collar, CBC with WBC set 4.2, hemoglobin 6.8 (decreased from TCU admit 8 Hgb), platelet 212, CMP not market appearing, CT head with chronic involutional changes of the brain and new lateral mastoiditis and interval development of chronic sinusitis, remote injury to the left maxillary sinus suspected with no acute intracranial pathology otherwise, bibasilar atelectasis versus infiltrate slightly more pronounced than prior suspicious for pneumonia. The ED patient administered normal saline, vancomycin and Zosyn. Past Medical History Past Medical History (Chronic Problems): Chronic Problems Hyperlipidemia (Chronic) Iron deficiency anemia (Chronic) GERD (gastroesophageal reflux disease) (Chronic) Dysphagia (Chronic) Coronary artery disease (Chronic) Hypertension (Chronic) Allergies famotidine [From Pepcid] Adverse Reaction (Verified 04/01/18 03:17) Low blood pressure metoclopramide [From Reglan] Adverse Reaction (Verified 04/01/18 03:17) Other Home Medications: Ambulatory Orders Medication Instructions Recorded Chlorhexidine [(None)] 15 ml PO BID 03/28/18 Docusate Sodium [COLACE LIQUID] 100 mg GT BID 03/28/18 Ferrous Sulfate Syrup 325 mg GT BID 03/28/18 Heparin Injection 5,000 units SC BID 03/28/18 Ipratropium/Albuterol Sulfate 3 ml INHALATION TID 03/28/18 [Duoneb] Lansoprazole [Prevacid] 30 mg GT DAILY 03/28/18 Metoprolol Tartrate [Lopressor 12.5 mg GT BID 03/28/18 (Beta Dillon)] Nystatin 100,000 unit PO 4X/DAY 03/28/18 Propylene Glycol/Peg 400/Pf 1 each OP BID 03/28/18 [Systane 0.3-0.4% Eye Drops] Surgical History: - - LUE surgery w/ hardware, recent emergent AAA repair, trach, PEG. Psychiatric History: No pertinent psych hx Lives: [facility] Smoking Status: Never smoker Tobacco Use: Non-smoker Alcohol: None Drugs: None - *Family History Paternal History Items: - - No marked maternal or paternal family history reported including HD, DM, CA. Maternal History Items: - - No marked maternal or paternal family history reported including HD, DM, CA. Review of Systems Unable to obtain accurate/complete ROS d/t: trach Patient Problems: Active and Suspected Problems HCAP (healthcare-associated pneumonia) (Acute) Anemia (Acute) Unresponsive state (Acute) - Physical Exam General: Alert, Cooperative, No apparent distress Neurological: Cranial nerves II-XII grossly intact, Motor Exam 5/5 strength throughout Vital Signs Temp Pulse Resp BP Pulse Ox 36.0 C L 80 18 111/66 99 04/02/18 08:00 04/02/18 09:49 04/02/18 08:00 04/02/18 09:49 04/02/18 08:00 Oxygen Flow Rate (L/min) 7 Oxygen Delivery Method Trach Collar Weight: 81 kg Body Mass Index (BMI) 25.5 Intake and Output for Last 24 Hours 03/31/18 04/01/18 04/02/18 23:59 23:59 23:59 Intake Total 825.3 / 825.3 757 / 757 Balance 825.3 / 825.3 757 / 757 Microbiology Past 72 Hours 04/01/18 22:55 Gram Stain - Final Sputum, Induced/Lukens 04/01/18 Unknown Respiratory Panel (PCR) - Preliminary Mucosa - Nasopharyngeal Laboratory Tests Past 24 Hrs 04/01/18 04/02/18 04/02/18 04:04 05:45 05:45 WBC 4.0 L RBC 2.60 L Hgb 7.5 L Hct 23.7 L MCV 91.2 MCH 28.8 MCHC 31.6 L RDW 16.8 H RDW Differential 53.6 H Plt Count 212 MPV 9.4 Immature Gran % (Auto) 0.000 Neut % (Auto) 43.8 L Lymph % (Auto) 37.5 [place] % (Auto) 10.1 H Eos % (Auto) 8.3 H Baso % (Auto) 0.3 Absolute Neuts (auto) 1.7 L Absolute Lymphs (auto) 1.49 Total Counted Not Reportable Sodium 143 Potassium 3.0 L Chloride 111 H Carbon Dioxide 22.0 Anion Gap 10 BUN 19 H Creatinine 1.21 Estim Creat Clear Calc 51.95 Est GFR (MDRD) Af Amer 75 Est GFR (MDRD) Non-Af 62 BUN/Creatinine Ratio 15.7 Glucose 98 Calcium 8.7 Phosphorus Magnesium Crossmatch See Detail 04/02/18 05:45 WBC RBC Hgb Hct MCV MCH MCHC RDW RDW Differential Plt Count MPV Immature Gran % (Auto) Neut % (Auto) Lymph % (Auto) [place] % (Auto) Eos % (Auto) Baso % (Auto) Absolute Neuts (auto) Absolute Lymphs (auto) Total Counted Sodium Potassium Chloride Carbon Dioxide Anion Gap BUN Creatinine Estim Creat Clear Calc Est GFR (MDRD) Af Amer Est GFR (MDRD) Non-Af BUN/Creatinine Ratio Glucose Calcium Phosphorus 3.6 Magnesium 1.6 Crossmatch Assessment/Plan All Active Problems Abdominal aortic aneurysm, ruptured (Acute) Cardiac arrest (Acute) Anoxic encephalopathy (Acute) Acute kidney injury (Acute) Tachycardia (Acute) DIC (disseminated intravascular coagulation) (Acute) Ileus (Acute) HCAP (healthcare-associated pneumonia) (Acute) Anemia (Acute) Unresponsive state (Acute) recurrent syncope, likely vasovagal due to tube feeds rec decrease rate and flush volumes speech therapy will need trach weaning after which swallowing mechanism should return and will resolve feeding issues
--- NOTE | 2018-04-02 11:00 | CON.PCM_ITS ---
Reason for Consult Date of Consultation: 04/02/18 Reason for Consultation: spells History of Present Illness: The patient is a 78 year old M with recurrent spells always associated with tube feeds. had complete cardiology evaluation at [facility] and did not have need for intervention. family describes spells as sudden startle appearance, stop breathing, then would become unresponsive, eyes closed, no shaking. per family his heart rate would go to zero while at [facility]. he's had approximately 8 spells, first of which was 03/09/18. only one spell coded, others he recovered on without cpr. associated diaphoresis The patient is a 78 y/o M w/ PMHx: HTN, HLD, CAD, GERD, Recent prolonged hospitalization secondary to onset 01/11/18 syncope w/ L flank pain, diaphoresis and nausea with CT scan of abdomen/pelvis w/ ruptured abdominal aortic aneurysm prompting transition to [facility] with emergency AAA repair w/ serial CODE BLUE (x5) with serial unresponsive episodes, required trach, peg who was transitioned to the TCU for further therapies once cleared from LTAC who now presents to the [facility] ED on 04/01/18 following recurrent unresponsive episode where he is noted to stare off, less interactive, 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 Discussion with family and decision to transition to the ED for further evaluation. Family also noting upon patient evaluation that he has been having increased confusion and less responsiveness baseline than he was prior and has been appearing to decline over the last 2 weeks. Family notes that he has had a chronic cough since trach and peg placement and notes that he does have frequent mucous plugging. He has also appeared more tight, wheezing than prior. He was also per report supposed to have 1 u PRBC on 04/01/18. In the ED work-up included T 97.3, heart rate 92, BP 108/69, respiratory rate 34, 96% on a trach collar, CBC with WBC set 4.2, hemoglobin 6.8 (decreased from TCU admit 8 Hgb), platelet 212, CMP not market appearing, CT head with chronic involutional changes of the brain and new lateral mastoiditis and interval development of chronic sinusitis, remote injury to the left maxillary sinus suspected with no acute intracranial pathology otherwise, bibasilar atelectasis versus infiltrate slightly more pronounced than prior suspicious for pneumonia. The ED patient administered normal saline, vancomycin and Zosyn. Past Medical History Past Medical History (Chronic Problems): Chronic Problems Hyperlipidemia (Chronic) Iron deficiency anemia (Chronic) GERD (gastroesophageal reflux disease) (Chronic) Dysphagia (Chronic) Coronary artery disease (Chronic) Hypertension (Chronic) Allergies famotidine [From Pepcid] Adverse Reaction (Verified 04/01/18 03:17) Low blood pressure metoclopramide [From Reglan] Adverse Reaction (Verified 04/01/18 03:17) Other Home Medications: Ambulatory Orders Medication Instructions Recorded Chlorhexidine [(None)] 15 ml PO BID 03/28/18 Docusate Sodium [COLACE LIQUID] 100 mg GT BID 03/28/18 Ferrous Sulfate Syrup 325 mg GT BID 03/28/18 Heparin Injection 5,000 units SC BID 03/28/18 Ipratropium/Albuterol Sulfate 3 ml INHALATION TID 03/28/18 [Duoneb] Lansoprazole [Prevacid] 30 mg GT DAILY 03/28/18 Metoprolol Tartrate [Lopressor 12.5 mg GT BID 03/28/18 (Beta Dillon)] Nystatin 100,000 unit PO 4X/DAY 03/28/18 Propylene Glycol/Peg 400/Pf 1 each OP BID 03/28/18 [Systane 0.3-0.4% Eye Drops] Surgical History: - - LUE surgery w/ hardware, recent emergent AAA repair, trach, PEG. Psychiatric History: No pertinent psych hx Lives: [facility] Smoking Status: Never smoker Tobacco Use: Non-smoker Alcohol: None Drugs: None - *Family History Paternal History Items: - - No marked maternal or paternal family history reported including HD, DM, CA. Maternal History Items: - - No marked maternal or paternal family history reported including HD, DM, CA. Review of Systems Unable to obtain accurate/complete ROS d/t: trach Patient Problems: Active and Suspected Problems HCAP (healthcare-associated pneumonia) (Acute) Anemia (Acute) Unresponsive state (Acute) - Physical Exam General: Alert, Cooperative, No apparent distress Neurological: Cranial nerves II-XII grossly intact, Motor Exam 5/5 strength throughout Vital Signs Temp Pulse Resp BP Pulse Ox 36.0 C L 80 18 111/66 99 04/02/18 08:00 04/02/18 09:49 04/02/18 08:00 04/02/18 09:49 04/02/18 08:00 Oxygen Flow Rate (L/min) 7 Oxygen Delivery Method Trach Collar Weight: 81 kg Body Mass Index (BMI) 25.5 Intake and Output for Last 24 Hours 03/31/18 04/01/18 04/02/18 23:59 23:59 23:59 Intake Total 825.3 / 825.3 757 / 757 Balance 825.3 / 825.3 757 / 757 Microbiology Past 72 Hours 04/01/18 22:55 Gram Stain - Final Sputum, Induced/Lukens 04/01/18 Unknown Respiratory Panel (PCR) - Preliminary Mucosa - Nasopharyngeal Laboratory Tests Past 24 Hrs 04/01/18 04/02/18 04/02/18 04:04 05:45 05:45 WBC 4.0 L RBC 2.60 L Hgb 7.5 L Hct 23.7 L MCV 91.2 MCH 28.8 MCHC 31.6 L RDW 16.8 H RDW Differential 53.6 H Plt Count 212 MPV 9.4 Immature Gran % (Auto) 0.000 Neut % (Auto) 43.8 L Lymph % (Auto) 37.5 [place] % (Auto) 10.1 H Eos % (Auto) 8.3 H Baso % (Auto) 0.3 Absolute Neuts (auto) 1.7 L Absolute Lymphs (auto) 1.49 Total Counted Not Reportable Sodium 143 Potassium 3.0 L Chloride 111 H Carbon Dioxide 22.0 Anion Gap 10 BUN 19 H Creatinine 1.21 Estim Creat Clear Calc 51.95 Est GFR (MDRD) Af Amer 75 Est GFR (MDRD) Non-Af 62 BUN/Creatinine Ratio 15.7 Glucose 98 Calcium 8.7 Phosphorus Magnesium Crossmatch See Detail 04/02/18 05:45 WBC RBC Hgb Hct MCV MCH MCHC RDW RDW Differential Plt Count MPV Immature Gran % (Auto) Neut % (Auto) Lymph % (Auto) [place] % (Auto) Eos % (Auto) Baso % (Auto) Absolute Neuts (auto) Absolute Lymphs (auto) Total Counted Sodium Potassium Chloride Carbon Dioxide Anion Gap BUN Creatinine Estim Creat Clear Calc Est GFR (MDRD) Af Amer Est GFR (MDRD) Non-Af BUN/Creatinine Ratio Glucose Calcium Phosphorus 3.6 Magnesium 1.6 Crossmatch Assessment/Plan All Active Problems Abdominal aortic aneurysm, ruptured (Acute) Cardiac arrest (Acute) Anoxic encephalopathy (Acute) Acute kidney injury (Acute) Tachycardia (Acute) DIC (disseminated intravascular coagulation) (Acute) Ileus (Acute) HCAP (healthcare-associated pneumonia) (Acute) Anemia (Acute) Unresponsive state (Acute) recurrent syncope, likely vasovagal due to tube feeds rec decrease rate and flush volumes speech therapy will need trach weaning after which swallowing mechanism should return and will resolve feeding issues
--- NOTE | 2018-04-02 14:52 | PCM.PN.HOSP ---
Patient Problems: Active and Suspected Problems HCAP (healthcare-associated pneumonia) (Acute) Anemia (Acute) Unresponsive state (Acute) Subjective: Patient was seen and examined. Denies any new complaints. Denies any pain. No acute events overnight. Tube feeds running. Appreciate neurology consult. Tube feed rate adjusted Vitals/I&O's: Vital Signs Temp Pulse Resp BP Pulse Ox 96.6 F L 84 18 130/76 H 94 04/02/18 14:00 04/02/18 14:00 04/02/18 14:00 04/02/18 14:00 04/02/18 14:00 Oxygen Flow Rate (L/min) 7 Oxygen Delivery Method Trach Collar Weight: 81 kg Body Mass Index (BMI) 25.5 Intake and Output for Last 24 Hours 03/31/18 04/01/18 04/02/18 23:59 23:59 23:59 Intake Total 825.3 / 825.3 1149 / 1149 Balance 825.3 / 825.3 1149 / 1149 General: Alert, Oriented x3, Cooperative, No apparent distress HEENT: Atraumatic, PERRLA, EOMI, Normocephalic Oral: Moist Mucosa Neck: Supple, - - Tracheostomy collar in place Lungs: Normal air movement, Diminished - at the Lung bases Cardiovascular: Regular rate, Regular Rhythm, Normal S1, Normal S2, No murmurs Abdomen: Bowel Sounds Present, Soft, Non Tender, Non-Distended, No Hepato-splenomegaly, - - Midline incisional scar, PEG tube in situ Extremities: No edema Skin: No rashes, No breakdown Musculoskeletal: No Tenderness to Palpation of Joints or Extremities Lymphatic: No Cervical, Supraclavicular, or Inguinal Adenopathy Neurological: Cranial nerves II-XII grossly intact Psych/Mental Status: Normal Affect, Appropriate Microbiology Past 72 Hours 04/01/18 22:55 Sputum, Induced/Lukens Gram Stain - Final 04/01/18 22:55 Sputum, Induced/Lukens Respiratory Culture - 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 04/01/18 Unknown Mucosa - Nasopharyngeal Respiratory Panel (PCR) - Preliminary Laboratory Results 04/02/18 05:45: WBC 4.0 L, RBC 2.60 L, Hgb 7.5 L, Hct 23.7 L, MCV 91.2, MCH 28.8, MCHC 31.6 L, RDW 16.8 H, RDW Differential 53.6 H, Plt Count 212, MPV 9.4, Immature Gran % (Auto) 0.000, Neut % (Auto) 43.8 L, Lymph % (Auto) 37.5, [place] % (Auto) 10.1 H, Eos % (Auto) 8.3 H, Baso % (Auto) 0.3, Absolute Neuts (auto) 1.7 L, Absolute Lymphs (auto) 1.49, Total Counted Not Reportable 04/02/18 05:45: Sodium 143, Potassium 3.0 L, Chloride 111 H, Carbon Dioxide 22.0, Anion Gap 10, BUN 19 H, Creatinine 1.21, Estim Creat Clear Calc 51.95, Est GFR (MDRD) Af Amer 75, Est GFR (MDRD) Non-Af 62, BUN/Creatinine Ratio 15.7, Glucose 98, Calcium 8.7 04/02/18 05:45: Phosphorus 3.6, Magnesium 1.6 Current Medications Albuterol Sulfate (Ventolin Aerosols) 2.5 mg INHALATION Q2H PRN PRN PRN Reason: SHORTNESS OF BREATH Albuterol/Ipratropium (Duoneb) 3 ml INHALATION Q4H.RT [facility] Last Admin: 04/02/18 10:43 Dose: 3 ml Aspirin (Aspirin, Baby) 81 mg GT DAILY@0800 [facility] Last Admin: 04/02/18 09:48 Dose: 81 mg Chlorhexidine Gluconate (Peridex) 15 ml PO BID [facility] Last Admin: 04/02/18 09:52 Dose: 15 ml Docusate Sodium (Colace Syrup) 100 mg GT BID [facility] Last Admin: 04/02/18 09:45 Dose: 100 mg Ferrous Sulfate (Ferrous Sulfate Syrup) 325 mg GT BID [facility] Last Admin: 04/02/18 09:45 Dose: 325 mg Heparin Sodium (Porcine) (Heparin Na) 5,000 unit SC BID [facility] Last Admin: 04/02/18 09:55 Dose: 5,000 unit Piperacillin Sod/Tazobactam Sod (Zosyn) 3.375 gm in 50 mls @ 12.5 mls/hr IV Q8 [facility] Last Admin: 04/02/18 13:45 Dose: 12.5 mls/hr Vancomycin HCl 1 mg/ Dextrose 250.02 mls @ 250 mls/hr IV RX TO DOSE PRN; Protocol Vancomycin HCl 1,500 mg/ (Sodium Chloride) 530 mls @ 250 mls/hr IV Q24H [facility] Last Admin: 04/02/18 04:13 Dose: 250 mls/hr Lactose (Pivot 1.5 [place]) 1,000 mls @ 15 mls/hr GT .Q48H [facility] Last Admin: 04/01/18 20:23 Dose: 15 mls/hr Lansoprazole (Lansoprazole) 30 mg GT DAILY [facility] Last Admin: 04/02/18 09:48 Dose: 30 mg Magnesium Hydroxide (Milk Of Magnesia) 30 ml PO DAILY PRN PRN Reason: Constipation Metoprolol Tartrate (Lopressor (Beta Dillon)) 12.5 mg GT BID [facility] Last Admin: 04/02/18 09:49 Dose: 12.5 mg Nystatin (Nystatin) 100,000 unit PO 4X/DAY [facility] Last Admin: 04/02/18 13:52 Dose: 100,000 unit Ondansetron HCl (Zofran) 4 mg IV Q8H PRN PRN PRN Reason: NAUSEA Promethazine HCl (Phenergan) 12.5 mg IV Q6H PRN PRN PRN Reason: NAUSEA/VOMITING Sodium Chloride () 5 - 30 ml IV UD PRN PRN Reason: SALINE FLUSH Medical Necessity - Tobacco Use Smoking Status: Never smoker Tobacco Use: Non-smoker Assessment/Plan All Active Problems Abdominal aortic aneurysm, ruptured (Acute) Cardiac arrest (Acute) Anoxic encephalopathy (Acute) Acute kidney injury (Acute) Tachycardia (Acute) DIC (disseminated intravascular coagulation) (Acute) Ileus (Acute) HCAP (healthcare-associated pneumonia) (Acute) Anemia (Acute) Unresponsive state (Acute) 78-year-old male with past medical history of hypertension, hyperlipidemia, status post recent prolonged complex hospitalization associated with syncope, serial responsive episodes and serial CODE BLUE, which are pending [facility]. Patient subsequently has been discharged to LTAC and finally in TCU. Patient was treated after an episode of unresponsiveness in TCU and confusion. This is reportedly similar to what he had been doing. 1. Episodes of unresponsiveness, no seizure related, EEG consistent with metabolic encephalopathy, neurology consulted, likely vasovagal due to tube feeds, tube feeds rates decreased as well as of large volumes, speech therapy already consulted 2. Possible HCAP, noted on admitting x-ray, started on IV Zosyn and vancomycin, no fevers, no leukocytosis, will repeat chest x-ray in a.m. 3. Chronic respiratory failure, status post tracheostomy, will consult pulmonology to assist with weaning of tracheostomy, aggressive pulmonary toileting 4. Hypokalemia, replace, recheck in a.m. 5. Acute on chronic normocytic normochromic/iron deficiency anemia, status post 1 PRBC transfusion, remains on iron, hemoglobin this morning 7.5 up from 6.8 will transfuse 1 more unit of packed RBCs to keep hemoglobin above 8 because of underlining history of CAD, check stool for occult blood, continue on PPI 6. Chronic anoxic encephalopathy, appears to be at his baseline per family 7. Recent AAA status post repair 8. CAD, on aspirin, beta-dillon, not on statin. 9. Hypertension, controlled, continue metoprolol 10. Hyperlipidemia,not on statin 11. GERD, on PPI 12. Oral thrush 13. DVT PPx- On SCDs Code Visit Inpatient E&M: 94514 Subs Hosp L2
--- NOTE | 2018-04-02 14:55 | PN_ITS ---
Patient Problems: Active and Suspected Problems HCAP (healthcare-associated pneumonia) (Acute) Anemia (Acute) Unresponsive state (Acute) Subjective: Patient was seen and examined. Denies any new complaints. Denies any pain. No acute events overnight. Tube feeds running. Appreciate neurology consult. Tube feed rate adjusted Vitals/I&O's: Vital Signs Temp Pulse Resp BP Pulse Ox 96.6 F L 84 18 130/76 H 94 04/02/18 14:00 04/02/18 14:00 04/02/18 14:00 04/02/18 14:00 04/02/18 14:00 Oxygen Flow Rate (L/min) 7 Oxygen Delivery Method Trach Collar Weight: 81 kg Body Mass Index (BMI) 25.5 Intake and Output for Last 24 Hours 03/31/18 04/01/18 04/02/18 23:59 23:59 23:59 Intake Total 825.3 / 825.3 1149 / 1149 Balance 825.3 / 825.3 1149 / 1149 General: Alert, Oriented x3, Cooperative, No apparent distress HEENT: Atraumatic, PERRLA, EOMI, Normocephalic Oral: Moist Mucosa Neck: Supple, - - Tracheostomy collar in place Lungs: Normal air movement, Diminished - at the Lung bases Cardiovascular: Regular rate, Regular Rhythm, Normal S1, Normal S2, No murmurs Abdomen: Bowel Sounds Present, Soft, Non Tender, Non-Distended, No Hepato- splenomegaly, - - Midline incisional scar, PEG tube in situ Extremities: No edema Skin: No rashes, No breakdown Musculoskeletal: No Tenderness to Palpation of Joints or Extremities Lymphatic: No Cervical, Supraclavicular, or Inguinal Adenopathy Neurological: Cranial nerves II-XII grossly intact Psych/Mental Status: Normal Affect, Appropriate Microbiology Past 72 Hours 04/01/18 22:55 Sputum, Induced/Lukens Gram Stain - Final 04/01/18 22:55 Sputum, Induced/Lukens Respiratory Culture - 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 04/01/18 Unknown Mucosa - Nasopharyngeal Respiratory Panel (PCR) - Preliminary Laboratory Results 04/02/18 05:45: WBC 4.0 L, RBC 2.60 L, Hgb 7.5 L, Hct 23.7 L, MCV 91.2, MCH 28.8, MCHC 31.6 L, RDW 16.8 H, RDW Differential 53.6 H, Plt Count 212, MPV 9.4, Immature Gran % (Auto) 0.000, Neut % (Auto) 43.8 L, Lymph % (Auto) 37.5, [place] % (Auto) 10.1 H, Eos % (Auto) 8.3 H, Baso % (Auto) 0.3, Absolute Neuts (auto) 1.7 L, Absolute Lymphs (auto) 1.49, Total Counted Not Reportable 04/02/18 05:45: Sodium 143, Potassium 3.0 L, Chloride 111 H, Carbon Dioxide 22.0, Anion Gap 10, BUN 19 H, Creatinine 1.21, Estim Creat Clear Calc 51.95, Est GFR (MDRD) Af Amer 75, Est GFR (MDRD) Non-Af 62, BUN/Creatinine Ratio 15.7, Glucose 98, Calcium 8.7 04/02/18 05:45: Phosphorus 3.6, Magnesium 1.6 Current Medications Albuterol Sulfate (Ventolin Aerosols) 2.5 mg INHALATION Q2H PRN PRN PRN Reason: SHORTNESS OF BREATH Albuterol/Ipratropium (Duoneb) 3 ml INHALATION Q4H.RT [facility] Last Admin: 04/02/18 10:43 Dose: 3 ml Aspirin (Aspirin, Baby) 81 mg GT DAILY@0800 [facility] Last Admin: 04/02/18 09:48 Dose: 81 mg Chlorhexidine Gluconate (Peridex) 15 ml PO BID [facility] Last Admin: 04/02/18 09:52 Dose: 15 ml Docusate Sodium (Colace Syrup) 100 mg GT BID [facility] Last Admin: 04/02/18 09:45 Dose: 100 mg Ferrous Sulfate (Ferrous Sulfate Syrup) 325 mg GT BID [facility] Last Admin: 04/02/18 09:45 Dose: 325 mg Heparin Sodium (Porcine) (Heparin Na) 5,000 unit SC BID [facility] Last Admin: 04/02/18 09:55 Dose: 5,000 unit Piperacillin Sod/Tazobactam Sod (Zosyn) 3.375 gm in 50 mls @ 12.5 mls/hr IV Q8 [facility] Last Admin: 04/02/18 13:45 Dose: 12.5 mls/hr Vancomycin HCl 1 mg/ Dextrose 250.02 mls @ 250 mls/hr IV RX TO DOSE PRN; Protocol Vancomycin HCl 1,500 mg/ (Sodium Chloride) 530 mls @ 250 mls/hr IV Q24H [facility] Last Admin: 04/02/18 04:13 Dose: 250 mls/hr Lactose (Pivot 1.5 [place]ob) 1,000 mls @ 15 mls/hr GT .Q48H [facility] Last Admin: 04/01/18 20:23 Dose: 15 mls/hr Lansoprazole (Lansoprazole) 30 mg GT DAILY [facility] Last Admin: 04/02/18 09:48 Dose: 30 mg Magnesium Hydroxide (Milk Of Magnesia) 30 ml PO DAILY PRN PRN Reason: Constipation Metoprolol Tartrate (Lopressor (Beta Dillon)) 12.5 mg GT BID [facility] Last Admin: 04/02/18 09:49 Dose: 12.5 mg Nystatin (Nystatin) 100,000 unit PO 4X/DAY [facility] Last Admin: 04/02/18 13:52 Dose: 100,000 unit Ondansetron HCl (Zofran) 4 mg IV Q8H PRN PRN PRN Reason: NAUSEA Promethazine HCl (Phenergan) 12.5 mg IV Q6H PRN PRN PRN Reason: NAUSEA/VOMITING Sodium Chloride () 5 - 30 ml IV UD PRN PRN Reason: SALINE FLUSH Medical Necessity - Tobacco Use Smoking Status: Never smoker Tobacco Use: Non-smoker Assessment/Plan All Active Problems Abdominal aortic aneurysm, ruptured (Acute) Cardiac arrest (Acute) Anoxic encephalopathy (Acute) Acute kidney injury (Acute) Tachycardia (Acute) DIC (disseminated intravascular coagulation) (Acute) Ileus (Acute) HCAP (healthcare-associated pneumonia) (Acute) Anemia (Acute) Unresponsive state (Acute) 78-year-old male with past medical history of hypertension, hyperlipidemia, status post recent prolonged complex hospitalization associated with syncope, serial responsive episodes and serial CODE BLUE, which are pending [facility]. Patient subsequently has been discharged to LTAC and finally in TCU. Patient was treated after an episode of unresponsiveness in TCU and confusion. This is reportedly similar to what he had been doing. 1. Episodes of unresponsiveness, no seizure related, EEG consistent with metabolic encephalopathy, neurology consulted, likely vasovagal due to tube feeds, tube feeds rates decreased as well as of large volumes, speech therapy already consulted 2. Possible HCAP, noted on admitting x-ray, started on IV Zosyn and vancomycin, no fevers, no leukocytosis, will repeat chest x-ray in a.m. 3. Chronic respiratory failure, status post tracheostomy, will consult pulmonology to assist with weaning of tracheostomy, aggressive pulmonary toileting 4. Hypokalemia, replace, recheck in a.m. 5. Acute on chronic normocytic normochromic/iron deficiency anemia, status post 1 PRBC transfusion, remains on iron, hemoglobin this morning 7.5 up from 6.8 will transfuse 1 more unit of packed RBCs to keep hemoglobin above 8 because of underlining history of CAD, check stool for occult blood, continue on PPI 6. Chronic anoxic encephalopathy, appears to be at his baseline per family 7. Recent AAA status post repair 8. CAD, on aspirin, beta-dillon, not on statin. 9. Hypertension, controlled, continue metoprolol 10. Hyperlipidemia,not on statin 11. GERD, on PPI 12. Oral thrush 13. DVT PPx- On SCDs Code Visit Inpatient E&M: 65856 Subs Hosp L2
[2018-04-02] MEDS: Furosemide 40 MG/4 ML Vial IV (16:21)
[2018-04-02 22:26] LABS: Bacteria 0 SEEN /hpf (None Seen); Mucous, Urine 0 SEEN /hpf (<or=2+); Red Blood Cells-Urine 0 SEEN /hpf (0-5); Squamous Epithelial Cells - UA 0 SEEN /hpf (0-5); White Blood Cells 0 SEEN /hpf (0-5)
[2018-04-02 22:30] LABS: Color, Urine Yellow (Yellow); Glucose, Dipstick Normal (Normal); Ketone-Dipstick Negative (Negative); Leukocyte Esterase-Dipstick 25 /ul (Negative); Nitrite-Dipstick Negative (Negative); Occult Blood-Urine Negative /ul (Negative); Protein-Dipstick Negative (Negative); Urine Bilirubin Dipstick Negative (Negative); Urine Clarity Clear (Clear); Urine Urobilinogen Normal (Normal); Urine pH 6.5 (5.0 - 8.0)
[2018-04-03] VITALS (20 sets, daily range): BP systolic 92–137; BP diastolic 59–86; PULSE 67–84; RESP 16–20; TEMP 36.3–36.8; O2SAT 97–100
[2018-04-03] MEDS: Ipratropium/Albuterol Sulfate 3 ML AMPUL.NEB INHALATION ×4 (02:34→23:03)
--- NOTE | 2018-04-03 04:35 | RAD_ITS ---
STUDY: X-RAY CHEST REASON FOR EXAM: Male, 78 years old. Shortness of breath. TECHNIQUE: AP portable chest. COMPARISON: April 01, 2018. FINDINGS: Tracheostomy tube in stable position. The heart is not enlarged. Airspace opacity in the right cardiophrenic angle slightly improved. Left lower lobe airspace opacity also improved since prior study. No effusions. No pneumothorax. Normal visualized thoracic spine. Normal visualized ribs, clavicles, and shoulders. There is no demonstrated abnormality of the visualized soft tissue structures of the upper abdomen. RAD/Chest 1 View (Portable) IMPRESSION: Improving bibasilar subsegmental atelectasis versus pneumonia. Electronically Signed: Tim Drew MD at 5:38 EDT , Service support ,
[2018-04-03 04:42] LABS: Absolute Lymphocyte Count 1.55 X10^3/ul (0.83-4.51); Basophil# 0.01 X10^3/uL; Basophil% 0.2 % (0-1); Eosinophil# 0.45 X10^3/uL; Eosinophils% 10.2 % (0-5); Hematocrit 29.4 % (40-54); Hemoglobin 9.6 g/dl (13.0-16.5); Lymphocyte # 1.55 X10^3/ul (4.0); Lymphocyte % 35.1 % (19-41); Mean Corp Hgb Conc 32.7 g/gl (32-36); Mean Corpuscular Hgb 29.5 pg (27.0-32.0); Mean Corpuscular Volume 90.5 fL (80-94); Mean Platelet Vol. 9.2 fl (6.2-12.0); Monocyte# 0.41 X10^3/uL; Monocyte% 9.3 % (0-10); Neutrophil # 1.99 X10^3/uL (2.7-7.7); Platelet Count 210 K/mm3 (150-450); RBC Distribution Width CV 17.1 % (11.6-14.6); RBC Distribution Width SD 53.7 fl (35.1-43.9); Red Blood Count 3.25 M/mm3 (4.6-6.2); White Blood Count 4.4 K/mm3 (4.4-11.0)
[2018-04-03 04:44] LABS: POSITIVE COUNT NO; POSITIVE DIFFERENTIAL NO; POSITIVE MORPHOLOGY NO
[2018-04-03 05:22] LABS: Albumin, Serum 2.4 g/dL (3.2-5.0); BUN 18 mg/dL (7-18); BUN/Creat Ratio 14.1 RATIO (10-20); Calcium,Total 9.1 mg/dL (8.5-10.1); Chloride 108 mmol/L (98-107); Creatinine, Serum 1.28 mg/dL (0.70-1.30); EST Glomerular Filtration Rate 58 mL/min (>60); Est Glom Filt Rate - Afr Amer 70 mL/min (>60); Estimated Creatinine Clearance 49.11 ml/min; Glucose 96 mg/dL (74-106); Phosphorus 3.7 mg/dL (2.5-4.9); Potassium 3.4 mmol/L (3.5-5.1); Sodium Level 144 mmol/L (136-145)
[2018-04-03] MEDS: Piperacil/Tazobactam 3.375 GM/50 ML ML IV (06:41)
[2018-04-03] MEDS: Aspirin 81 MG TAB.CHEW GT (07:53)
[2018-04-03] MEDS: Glycerin/Hypromellose/PEG400 15 ml Bottle 1 DRP EACH EYE ×2 (07:53→21:43)
[2018-04-03] MEDS: Docusate Sodium 100 MG/10 ML UDC GT ×2 (07:53→21:43)
[2018-04-03] MEDS: LANSOPRAZOLE 15 MG CAPSULE.DR 30 MG GT (07:53)
[2018-04-03] MEDS: Heparin Injection (Vial) 5,000 UNIT/ML VIAL 5000 UNIT SC ×2 (07:54→22:07)
[2018-04-03] MEDS: Ferrous Sulfate 300 MG/5 ML UDC 325 MG GT ×2 (07:54→21:43)
[2018-04-03] MEDS: Metoprolol Tartrate 25 MG Tablet 12.5 MG GT ×2 (09:41→21:44)
[2018-04-03] MEDS: NYSTATIN 500,000 UNIT/5 ML UDC 100000 UNIT PO ×4 (09:42→21:45)
[2018-04-03] MEDS: Chlorhexidine 480 ML 15 ML PO ×2 (09:42→21:45)
--- NOTE | 2018-04-03 11:56 | CASEMGMT ---
GLENNY spoke with Nicole in TCU and they can take patient back when he is ready. Plan: d/c to [facility] TCU when ready. Per physician this may be Tuesday Renetta LIU
--- NOTE | 2018-04-03 13:43 | PCM.CONS.GEN ---
Problem List (1) Abdominal aortic aneurysm, ruptured Status: Resolved (2) Cardiac arrest Status: Resolved (3) Anoxic encephalopathy Status: Chronic (4) Dysphagia Status: Chronic Qualifiers: Dysphagia type: oropharyngeal phase Qualified Code(s): R13.12 - Dysphagia, oropharyngeal phase (5) HCAP (healthcare-associated pneumonia) Status: Acute (6) Coronary artery disease Status: Chronic Qualifiers: Coronary Disease-Associated Artery/Lesion type: unspecified vessel or lesion type [place] vs. transplanted heart: unspecified whether [place] or transplanted heart Associated angina: angina presence unspecified Qualified Code(s): I25.10 - Atherosclerotic heart disease of [place] coronary artery without angina pectoris (7) Hypertension Status: Chronic Qualifiers: Hypertension type: essential hypertension Qualified Code(s): I10 - Essential (primary) hypertension Reason for Consult Date of Consultation: 04/03/18 Reason for Consultation: Chronic respiratory failure History of Present Illness: The patient is a 78 year old M, with past medical history listed below, who presented to [facility] on 04/01/2018 from the TCU secondary to change in mental status. An EQUIPMENT WASHER had been called on TCU secondary to patient staring off and becoming less interactive and oriented. In the emergency department, patient was afebrile with an adequate blood pressure, but tachypnea and requiring a trach collar for oxygenation. Patient was noted to have a hemoglobin of 6.8. Radiologic workup was unremarkable. Patient was admitted to the general medical floor and initiated on antibiotics. Patient did have an EEG and neurologic workup. End result was the thought of a vasovagal episode secondary to bolus tube feeds. Pulmonary consultation is being requested secondary to patient's tracheostomy and weaning recommendations. Patient reportedly was transferred to [facility] secondary to an emergency AAA repair. Patient had a very complicated hospital course with serial CODE BLUE events that resulted in tracheostomy, PEG and LTAC stay. Patient was recently transferred to the TCU for rehab. Patient's family reports a possible history of obstructive sleep apnea prior to the acute hospitalization. Otherwise, patient did not have any respiratory difficulties. 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 Patient did not have any inhalers at home. Patient has never required supplemental oxygen. Patient's family reports that he was being capped for most of the day prior to leaving the LTAC. Patient was able to expectorate his secretions, but was told to practice swallowing. Patient did have a history of mucous plugging in the past, but this was reportedly improving from their perspective. Review of systems otherwise negative x10 systems per the family, but patient is not very helpful. Past Medical History Past Medical History (Chronic Problems): Chronic Problems Anoxic encephalopathy (Chronic) Hyperlipidemia (Chronic) Iron deficiency anemia (Chronic) GERD (gastroesophageal reflux disease) (Chronic) Dysphagia (Chronic) Coronary artery disease (Chronic) Hypertension (Chronic) Allergies famotidine [From Pepcid] Adverse Reaction (Verified 04/01/18 03:17) Low blood pressure metoclopramide [From Reglan] Adverse Reaction (Verified 04/01/18 03:17) Other Home Medications: Ambulatory Orders Medication Instructions Recorded Chlorhexidine [(None)] 15 ml PO BID 03/28/18 Docusate Sodium [COLACE LIQUID] 100 mg GT BID 03/28/18 Ferrous Sulfate Syrup 325 mg GT BID 03/28/18 Heparin Injection 5,000 units SC BID 03/28/18 Ipratropium/Albuterol Sulfate 3 ml INHALATION TID 03/28/18 [Duoneb] Lansoprazole [Prevacid] 30 mg GT DAILY 03/28/18 Metoprolol Tartrate [Lopressor 12.5 mg GT BID 03/28/18 (Beta Dillon)] Nystatin 100,000 unit PO 4X/DAY 03/28/18 Propylene Glycol/Peg 400/Pf 1 each OP BID 03/28/18 [Systane 0.3-0.4% Eye Drops] Surgical History: - - LUE surgery w/ hardware, recent emergent AAA repair, trach, PEG. Psychiatric History: No pertinent psych hx [place]: [place] Smoking Status: Never smoker Tobacco Use: Non-smoker Alcohol: None Drugs: None - *Family History Paternal History Items: - - No marked maternal or paternal family history reported including HD, DM, CA. Maternal History Items: - - No marked maternal or paternal family history reported including HD, DM, CA. Review of Systems Comment: See HPI, otherwise negative x10 systems. Patient Problems: Active and Suspected Problems HCAP (healthcare-associated pneumonia) (Acute) Anemia (Acute) Unresponsive state (Acute) - Physical Exam General: Cooperative, No apparent distress, Lethargic, - - RASS -1 HEENT: Atraumatic, PERRLA, EOMI, Normocephalic Oral: Moist Mucosa, No Gingival or Mucosal Lesions/ Ulcerations Neck: Supple, No JVD, No Nodes, No Nuchal Rigidity, - - Trach is clean, dry and intact. Lungs: No wheeze, No rales, Diminished, Rhonchi - Improved with cough, - - Symmetric expansion. No dullness to percussion. Cardiovascular: Regular rate, Regular Rhythm, Normal S1, Normal S2, No murmurs, No rub noted, No Gallop Abdomen: Bowel Sounds Present, Soft, Non Tender, Non-Distended Extremities: No clubbing, No cyanosis Skin: No rashes, No breakdown Musculoskeletal: No Tenderness to Palpation of Joints or Extremities Lymphatic: No Cervical, Supraclavicular, or Inguinal Adenopathy Neurological: Cranial nerves II-XII grossly intact, Motor Exam 5/5 strength throughout, - - Significant tremor noted. Psych/Mental Status: Flat Affect, Restless Vital Signs Temp Pulse Resp BP Pulse Ox 36.3 C L 70 18 119/63 97 04/03/18 10:06 04/03/18 11:55 04/03/18 11:22 04/03/18 10:06 04/03/18 11:22 Oxygen Flow Rate (L/min) 6 Oxygen Delivery Method Trach Collar Weight: 81 kg Body Mass Index (BMI) 25.5 Intake and Output for Last 24 Hours 04/01/18 04/02/18 04/03/18 23:59 23:59 23:59 Intake Total 825.3 / 825.3 1619 / 1619 2298 / 2298 Output Total 52 / 52 Balance 825.3 / 825.3 1619 / 1619 2246 / 2246 Microbiology Past 72 Hours 04/01/18 22:55 Gram Stain - Final Sputum, Induced/Lukens Respiratory Culture - Preliminary Enterobacter cloacae complex 04/01/18 Unknown Respiratory Panel (PCR) - Final Mucosa - Nasopharyngeal Laboratory Tests Past 24 Hrs 04/01/18 04/01/18 04/02/18 04:04 04:04 22:20 WBC RBC Hgb Hct MCV MCH MCHC RDW RDW Differential Plt Count MPV Immature Gran % (Auto) Neut % (Auto) Lymph % (Auto) [place] % (Auto) Eos % (Auto) Baso % (Auto) Absolute Neuts (auto) Absolute Lymphs (auto) Total Counted Sodium Potassium Chloride Carbon Dioxide BUN Creatinine Estim Creat Clear Calc Est GFR (MDRD) Af Amer Est GFR (MDRD) Non-Af BUN/Creatinine Ratio Glucose Calcium Phosphorus Albumin Urine Color Yellow Urine Clarity Clear Urine pH 6.5 Ur Specific [place] 1.010 Urine Protein Negative Urine Glucose (UA) Normal Urine Ketones Negative Urine Occult Blood Negative Urine Nitrite Negative Urine Bilirubin Negative Urine Urobilinogen Normal Ur Leukocyte Esterase 25 H Urine RBC 0 SEEN Urine WBC 0 SEEN Ur Squamous Epith Cells 0 SEEN Urine Bacteria 0 SEEN Urine Mucus 0 SEEN Vancomycin Trough Crossmatch See Detail See Detail 04/03/18 04/03/18 04/03/18 04:30 04:30 04:30 WBC 4.4 RBC 3.25 L Hgb 9.6 L Hct 29.4 L MCV 90.5 MCH 29.5 MCHC 32.7 RDW 17.1 H RDW Differential 53.7 H Plt Count 210 MPV 9.2 Immature Gran % (Auto) 0.200 Neut % (Auto) 45.0 L Lymph % (Auto) 35.1 [place] % (Auto) 9.3 Eos % (Auto) 10.2 H Baso % (Auto) 0.2 Absolute Neuts (auto) 2.0 Absolute Lymphs (auto) 1.55 Total Counted Not Reportable Sodium 144 Potassium 3.4 L Chloride 108 H Carbon Dioxide 23.0 BUN 18 Creatinine 1.28 Estim Creat Clear Calc 49.11 Est GFR (MDRD) Af Amer 70 Est GFR (MDRD) Non-Af 58 L BUN/Creatinine Ratio 14.1 Glucose 96 Calcium 9.1 Phosphorus 3.7 Albumin 2.4 L Urine Color Urine Clarity Urine pH Ur Specific [place] Urine Protein Urine Glucose (UA) Urine Ketones Urine Occult Blood Urine Nitrite Urine Bilirubin Urine Urobilinogen Ur Leukocyte Esterase Urine RBC Urine WBC Ur Squamous Epith Cells Urine Bacteria Urine Mucus Vancomycin Trough 17.0 H Crossmatch Clinical Impression(s) from Imaging Studies Brain CT 04/01/18 02:37 IMPRESSION: Chronic involutional changes of the brain. New lateral mastoiditis and interval development of chronic sinusitis. Remote injury to the left maxillary sinus suspected. There is no acute intracranial pathology. Electronically Signed: Santa Travis MD at 4:01 EDT , Service support , Chest X-Ray 04/01/18 02:37 IMPRESSION: Suspect bibasilar atelectasis and or infiltrates, slightly more pronounced on current examination. Electronically Signed: Santa Travis MD at 3:23 EDT , Service support , Chest X-Ray 04/03/18 04:35 IMPRESSION: Improving bibasilar subsegmental atelectasis versus pneumonia. Electronically Signed: Tim Drew MD at 5:38 EDT , Service support , Assessment/Plan All Active Problems Abdominal aortic aneurysm, ruptured (Resolved) Cardiac arrest (Resolved) Acute kidney injury (Acute) Tachycardia (Acute) DIC (disseminated intravascular coagulation) (Acute) Ileus (Acute) HCAP (healthcare-associated pneumonia) (Acute) Anemia (Acute) Unresponsive state (Acute) RECOMMENDATIONS: 1. Wean oxygen as tolerated, consider vest therapy 2. Change antibiotics given sputum culture 3. Likely okay to initiate PMV trial in 2-3 days 4. If tolerates PMV trial, capping trial can be initiated 5. Reasonable candidate for possible decannulation 6. Consider continuous tube feeds as opposed to bolus IMPRESSIONS: 1. Chronic respiratory failure secondary to complicated hospital course Patient currently with tracheostomy requiring supplemental oxygen. Patient has had issues with mucus plugging. May use vest therapy for pulmonary toileting if patient continues to have complications. Patient with no underlying respiratory illness reported. Patient has had compromise secondary to prolonged hospitalization. Purulent sputum has been reported with mucus plugging. Sputum culture noted. Will change antibiotics for coverage. Likely okay to proceed with PMV trial in 2-3 days after appropriate antibiotics. If patient tolerates PMV trial, capping trial can be initiated. Patient would be a reasonable candidate for possible decannulation. 2. Recurrent syncope Thought is this is a vasovagal episode. EEG was relatively unremarkable for any etiology. Review of the notes showed no hemodynamic instability over the course of the hospitalization. Patient does have a drop in hemoglobin, but workup is currently underway. 3. Recent AAA repair/CAD/hypertension/hyperlipidemia/GERD/advanced age Complicates care, management, recovery and prognosis Code Visit Inpatient E&M: 05374 Init Hosp L2
--- NOTE | 2018-04-03 13:49 | CON.PCM_ITS ---
Problem List (1) Abdominal aortic aneurysm, ruptured Status: Resolved (2) Cardiac arrest Status: Resolved (3) Anoxic encephalopathy Status: Chronic (4) Dysphagia Status: Chronic Qualifiers: Dysphagia type: oropharyngeal phase Qualified Code(s): R13.12 - Dysphagia, oropharyngeal phase (5) HCAP (healthcare-associated pneumonia) Status: Acute (6) Coronary artery disease Status: Chronic Qualifiers: Coronary Disease-Associated Artery/Lesion type: unspecified vessel or lesion type [place] vs. transplanted heart: unspecified whether [place] or transplanted heart Associated angina: angina presence unspecified Qualified Code(s): I25.10 - Atherosclerotic heart disease of [place] coronary artery without angina pectoris (7) Hypertension Status: Chronic Qualifiers: Hypertension type: essential hypertension Qualified Code(s): I10 - Essential (primary) hypertension Reason for Consult Date of Consultation: 04/03/18 Reason for Consultation: Chronic respiratory failure History of Present Illness: The patient is a 78 year old M, with past medical history listed below, who presented to [facility] on 04/01/2018 from the TCU secondary to change in mental status. An SCUBA DIVE TRAINING INSTRUCTOR had been called on TCU secondary to patient staring off and becoming less interactive and oriented. In the emergency department, patient was afebrile with an adequate blood pressure, but tachypnea and requiring a trach collar for oxygenation. Patient was noted to have a hemoglobin of 6.8. Radiologic workup was unremarkable. Patient was admitted to the general medical floor and initiated on antibiotics. Patient did have an EEG and neurologic workup. End result was the thought of a vasovagal episode secondary to bolus tube feeds. Pulmonary consultation is being requested secondary to patient's tracheostomy and weaning recommendations. Patient reportedly was transferred to [facility] secondary to an emergency AAA repair. Patient had a very complicated hospital course with serial CODE BLUE events that resulted in tracheostomy, PEG and LTAC stay. Patient was recently transferred to the TCU for rehab. Patient's family reports a possible history of obstructive sleep apnea prior to the acute hospitalization. Otherwise, patient did not have any respiratory difficulties. 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 Patient did not have any inhalers at home. Patient has never required supplemental oxygen. Patient's family reports that he was being capped for most of the day prior to leaving the LTAC. Patient was able to expectorate his secretions, but was told to practice swallowing. Patient did have a history of mucous plugging in the past, but this was reportedly improving from their perspective. Review of systems otherwise negative x10 systems per the family, but patient is not very helpful. Past Medical History Past Medical History (Chronic Problems): Chronic Problems Anoxic encephalopathy (Chronic) Hyperlipidemia (Chronic) Iron deficiency anemia (Chronic) GERD (gastroesophageal reflux disease) (Chronic) Dysphagia (Chronic) Coronary artery disease (Chronic) Hypertension (Chronic) Allergies famotidine [From Pepcid] Adverse Reaction (Verified 04/01/18 03:17) Low blood pressure metoclopramide [From Reglan] Adverse Reaction (Verified 04/01/18 03:17) Other Home Medications: Ambulatory Orders Medication Instructions Recorded Chlorhexidine [(None)] 15 ml PO BID 03/28/18 Docusate Sodium [COLACE LIQUID] 100 mg GT BID 03/28/18 Ferrous Sulfate Syrup 325 mg GT BID 03/28/18 Heparin Injection 5,000 units SC BID 03/28/18 Ipratropium/Albuterol Sulfate 3 ml INHALATION TID 03/28/18 [Duoneb] Lansoprazole [Prevacid] 30 mg GT DAILY 03/28/18 Metoprolol Tartrate [Lopressor 12.5 mg GT BID 03/28/18 (Beta Dillon)] Nystatin 100,000 unit PO 4X/DAY 03/28/18 Propylene Glycol/Peg 400/Pf 1 each OP BID 03/28/18 [Systane 0.3-0.4% Eye Drops] Surgical History: - - LUE surgery w/ hardware, recent emergent AAA repair, trach, PEG. Psychiatric History: No pertinent psych hx Lives: [facility] Smoking Status: Never smoker Tobacco Use: Non-smoker Alcohol: None Drugs: None - *Family History Paternal History Items: - - No marked maternal or paternal family history reported including HD, DM, CA. Maternal History Items: - - No marked maternal or paternal family history reported including HD, DM, CA. Review of Systems Comment: See HPI, otherwise negative x10 systems. Patient Problems: Active and Suspected Problems HCAP (healthcare-associated pneumonia) (Acute) Anemia (Acute) Unresponsive state (Acute) - Physical Exam General: Cooperative, No apparent distress, Lethargic, - - RASS -1 HEENT: Atraumatic, PERRLA, EOMI, Normocephalic Oral: Moist Mucosa, No Gingival or Mucosal Lesions/ Ulcerations Neck: Supple, No JVD, No Nodes, No Nuchal Rigidity, - - Trach is clean, dry and intact. Lungs: No wheeze, No rales, Diminished, Rhonchi - Improved with cough, - - Symmetric expansion. No dullness to percussion. Cardiovascular: Regular rate, Regular Rhythm, Normal S1, Normal S2, No murmurs, No rub noted, No Gallop Abdomen: Bowel Sounds Present, Soft, Non Tender, Non-Distended Extremities: No clubbing, No cyanosis Skin: No rashes, No breakdown Musculoskeletal: No Tenderness to Palpation of Joints or Extremities Lymphatic: No Cervical, Supraclavicular, or Inguinal Adenopathy Neurological: Cranial nerves II-XII grossly intact, Motor Exam 5/5 strength throughout, - - Significant tremor noted. Psych/Mental Status: Flat Affect, Restless Vital Signs Temp Pulse Resp BP Pulse Ox 36.3 C L 70 18 119/63 97 04/03/18 10:06 04/03/18 11:55 04/03/18 11:22 04/03/18 10:06 04/03/18 11:22 Oxygen Flow Rate (L/min) 6 Oxygen Delivery Method Trach Collar Weight: 81 kg Body Mass Index (BMI) 25.5 Intake and Output for Last 24 Hours 04/01/18 04/02/18 04/03/18 23:59 23:59 23:59 Intake Total 825.3 / 825.3 1619 / 1619 2298 / 2298 Output Total 52 / 52 Balance 825.3 / 825.3 1619 / 1619 2246 / 2246 Microbiology Past 72 Hours 04/01/18 22:55 Gram Stain - Final Sputum, Induced/Lukens Respiratory Culture - Preliminary Enterobacter cloacae complex 04/01/18 Unknown Respiratory Panel (PCR) - Final Mucosa - Nasopharyngeal Laboratory Tests Past 24 Hrs 04/01/18 04/01/18 04/02/18 04:04 04:04 22:20 WBC RBC Hgb Hct MCV MCH MCHC RDW RDW Differential Plt Count MPV Immature Gran % (Auto) Neut % (Auto) Lymph % (Auto) [place] % (Auto) Eos % (Auto) Baso % (Auto) Absolute Neuts (auto) Absolute Lymphs (auto) Total Counted Sodium Potassium Chloride Carbon Dioxide BUN Creatinine Estim Creat Clear Calc Est GFR (MDRD) Af Amer Est GFR (MDRD) Non-Af BUN/Creatinine Ratio Glucose Calcium Phosphorus Albumin Urine Color Yellow Urine Clarity Clear Urine pH 6.5 Ur Specific [place] 1.010 Urine Protein Negative Urine Glucose (UA) Normal Urine Ketones Negative Urine Occult Blood Negative Urine Nitrite Negative Urine Bilirubin Negative Urine Urobilinogen Normal Ur Leukocyte Esterase 25 H Urine RBC 0 SEEN Urine WBC 0 SEEN Ur Squamous Epith Cells 0 SEEN Urine Bacteria 0 SEEN Urine Mucus 0 SEEN Vancomycin Trough Crossmatch See Detail See Detail 04/03/18 04/03/18 04/03/18 04:30 04:30 04:30 WBC 4.4 RBC 3.25 L Hgb 9.6 L Hct 29.4 L MCV 90.5 MCH 29.5 MCHC 32.7 RDW 17.1 H RDW Differential 53.7 H Plt Count 210 MPV 9.2 Immature Gran % (Auto) 0.200 Neut % (Auto) 45.0 L Lymph % (Auto) 35.1 [place] % (Auto) 9.3 Eos % (Auto) 10.2 H Baso % (Auto) 0.2 Absolute Neuts (auto) 2.0 Absolute Lymphs (auto) 1.55 Total Counted Not Reportable Sodium 144 Potassium 3.4 L Chloride 108 H Carbon Dioxide 23.0 BUN 18 Creatinine 1.28 Estim Creat Clear Calc 49.11 Est GFR (MDRD) Af Amer 70 Est GFR (MDRD) Non-Af 58 L BUN/Creatinine Ratio 14.1 Glucose 96 Calcium 9.1 Phosphorus 3.7 Albumin 2.4 L Urine Color Urine Clarity Urine pH Ur Specific [place] Urine Protein Urine Glucose (UA) Urine Ketones Urine Occult Blood Urine Nitrite Urine Bilirubin Urine Urobilinogen Ur Leukocyte Esterase Urine RBC Urine WBC Ur Squamous Epith Cells Urine Bacteria Urine Mucus Vancomycin Trough 17.0 H Crossmatch Clinical Impression(s) from Imaging Studies Brain CT 04/01/18 02:37 IMPRESSION: Chronic involutional changes of the brain. New lateral mastoiditis and interval development of chronic sinusitis. Remote injury to the left maxillary sinus suspected. There is no acute intracranial pathology. Electronically Signed: Santa Travis MD at 4:01 EDT , Service support , Chest X-Ray 04/01/18 02:37 IMPRESSION: Suspect bibasilar atelectasis and or infiltrates, slightly more pronounced on current examination. Electronically Signed: Santa Traivs MD at 3:23 EDT , Service support , Chest X-Ray 04/03/18 04:35 IMPRESSION: Improving bibasilar subsegmental atelectasis versus pneumonia. Electronically Signed: Tim Drew MD at 5:38 EDT , Service support , Assessment/Plan All Active Problems Abdominal aortic aneurysm, ruptured (Resolved) Cardiac arrest (Resolved) Acute kidney injury (Acute) Tachycardia (Acute) DIC (disseminated intravascular coagulation) (Acute) Ileus (Acute) HCAP (healthcare-associated pneumonia) (Acute) Anemia (Acute) Unresponsive state (Acute) RECOMMENDATIONS: 1. Wean oxygen as tolerated, consider vest therapy 2. Change antibiotics given sputum culture 3. Likely okay to initiate PMV trial in 2-3 days 4. If tolerates PMV trial, capping trial can be initiated 5. Reasonable candidate for possible decannulation 6. Consider continuous tube feeds as opposed to bolus IMPRESSIONS: 1. Chronic respiratory failure secondary to complicated hospital course Patient currently with tracheostomy requiring supplemental oxygen. Patient has had issues with mucus plugging. May use vest therapy for pulmonary toileting if patient continues to have complications. Patient with no underlying respiratory illness reported. Patient has had compromise secondary to prolonged hospitalization. Purulent sputum has been reported with mucus plugging. Sputum culture noted. Will change antibiotics for coverage. Likely okay to proceed with PMV trial in 2-3 days after appropriate antibiotics. If patient tolerates PMV trial, capping trial can be initiated. Patient would be a reasonable candidate for possible decannulation. 2. Recurrent syncope Thought is this is a vasovagal episode. EEG was relatively unremarkable for any etiology. Review of the notes showed no hemodynamic instability over the course of the hospitalization. Patient does have a drop in hemoglobin, but workup is currently underway. 3. Recent AAA repair/CAD/hypertension/hyperlipidemia/GERD/advanced age Complicates care, management, recovery and prognosis Code Visit Inpatient E&M: 06012 Init Hosp L2
--- NOTE | 2018-04-03 15:35 | PCM.PN.HOSP ---
Patient Problems: Active and Suspected Problems HCAP (healthcare-associated pneumonia) (Acute) Anemia (Acute) Unresponsive state (Acute) Subjective: Patient was seen and examined. No more on unresponsive episodes. No acute events overnight. Objective: Physical exam: General: Alert, Oriented x3, Cooperative, No apparent distress HEENT: Atraumatic, PERRLA, EOMI, Normocephalic Oral: Moist Mucosa Neck: Supple, - - Tracheostomy collar in place Lungs: Normal air movement, Diminished - at the Lung bases Cardiovascular: Regular rate, Regular Rhythm, Normal S1, Normal S2, No murmurs Abdomen: Bowel Sounds Present, Soft, Non Tender, Non-Distended, No Hepato-splenomegaly, - - Midline incisional scar, PEG tube in situ Extremities: No edema Skin: No rashes, No breakdown Musculoskeletal: No Tenderness to Palpation of Joints or Extremities Lymphatic: No Cervical, Supraclavicular, or Inguinal Adenopathy Neurological: Cranial nerves II-XII grossly intact Psych/Mental Status: Normal Affect, Appropriate Vitals/I&O's: Vital Signs Temp Pulse Resp BP Pulse Ox 97.4 F L 80 18 119/63 97 04/03/18 10:06 04/03/18 15:29 04/03/18 11:22 04/03/18 10:06 04/03/18 11:22 Oxygen Flow Rate (L/min) 6 Oxygen Delivery Method Trach Collar Weight: 81 kg Body Mass Index (BMI) 25.5 Intake and Output for Last 24 Hours 04/01/18 04/02/18 04/03/18 23:59 23:59 23:59 Intake Total 825.3 / 825.3 1619 / 1619 2298 / 2298 Output Total 52 / 52 Balance 825.3 / 825.3 1619 / 1619 2246 / 2246 Microbiology Past 72 Hours 04/01/18 22:55 Sputum, Induced/Lukens Gram Stain - Final 04/01/18 22:55 Sputum, Induced/Lukens Respiratory Culture - Preliminary Enterobacter cloacae complex 04/01/18 Unknown Mucosa - Nasopharyngeal Respiratory Panel (PCR) - Final Laboratory Results 04/01/18 04:04: Crossmatch See Detail 04/01/18 04:04: Crossmatch See Detail 04/02/18 22:20: Urine Color Yellow, Urine Clarity Clear, Urine pH 6.5, Ur Specific [place] 1.010, Urine Protein Negative, Urine Glucose (UA) Normal, Urine Ketones Negative, Urine Occult Blood Negative, Urine Nitrite Negative, Urine Bilirubin Negative, Urine Urobilinogen Normal, Ur Leukocyte Esterase 25 H, Urine RBC 0 SEEN, Urine WBC 0 SEEN, Ur Squamous Epith Cells 0 SEEN, Urine Bacteria 0 SEEN, Urine Mucus 0 SEEN 04/03/18 04:30: Vancomycin Trough 17.0 H 04/03/18 04:30: Sodium 144, Potassium 3.4 L, Chloride 108 H, Carbon Dioxide 23.0, BUN 18, Creatinine 1.28, Estim Creat Clear Calc 49.11, Est GFR (MDRD) Af Amer 70, Est GFR (MDRD) Non-Af 58 L, BUN/Creatinine Ratio 14.1, Glucose 96, Calcium 9.1, Phosphorus 3.7, Albumin 2.4 L 04/03/18 04:30: WBC 4.4, RBC 3.25 L, Hgb 9.6 L, Hct 29.4 L, MCV 90.5, MCH 29.5, MCHC 32.7, RDW 17.1 H, RDW Differential 53.7 H, Plt Count 210, MPV 9.2, Immature Gran % (Auto) 0.200, Neut % (Auto) 45.0 L, Lymph % (Auto) 35.1, [place] % (Auto) 9.3, Eos % (Auto) 10.2 H, Baso % (Auto) 0.2, Absolute Neuts (auto) 2.0, Absolute Lymphs (auto) 1.55, Total Counted Not Reportable Current Medications Albuterol Sulfate (Ventolin Aerosols) 2.5 mg INHALATION Q2H PRN PRN PRN Reason: SHORTNESS OF BREATH Albuterol/Ipratropium (Duoneb) 3 ml INHALATION Q4H.RT [facility] Last Admin: 04/03/18 11:22 Dose: 3 ml Aspirin (Aspirin, Baby) 81 mg GT DAILY@0800 [facility] Last Admin: 04/03/18 07:53 Dose: 81 mg Chlorhexidine Gluconate (Peridex) 15 ml PO BID [facility] Last Admin: 04/03/18 09:42 Dose: 15 ml Docusate Sodium (Colace Syrup) 100 mg GT BID [facility] Last Admin: 04/03/18 07:53 Dose: 100 mg Ferrous Sulfate (Ferrous Sulfate Syrup) 325 mg GT BID [facility] Last Admin: 04/03/18 07:54 Dose: 325 mg Heparin Sodium (Porcine) (Heparin Na) 5,000 unit SC BID [facility] Last Admin: 04/03/18 07:54 Dose: 5,000 unit Lactose (Pivot 1.5 [place]ob) 1,000 mls @ 15 mls/hr GT .Q48H [facility] Last Admin: 04/01/18 20:23 Dose: 15 mls/hr Levofloxacin (Levaquin Iv) 500 mg in 100 mls @ 100 mls/hr IV Q24 [facility] Stop: 04/09/18 10:01 Lansoprazole (Lansoprazole) 30 mg GT DAILY [facility] Last Admin: 04/03/18 07:53 Dose: 30 mg Magnesium Hydroxide (Milk Of Magnesia) 30 ml PO DAILY PRN PRN Reason: Constipation Metoprolol Tartrate (Lopressor (Beta Dillon)) 12.5 mg GT BID [facility] Last Admin: 04/03/18 09:41 Dose: 12.5 mg Nystatin (Nystatin) 100,000 unit PO 4X/DAY [facility] Last Admin: 04/03/18 15:23 Dose: 100,000 unit Ondansetron HCl (Zofran) 4 mg IV Q8H PRN PRN PRN Reason: NAUSEA Sodium Chloride () 5 - 30 ml IV UD PRN PRN Reason: SALINE FLUSH Medical Necessity - Tobacco Use Smoking Status: Never smoker Tobacco Use: Non-smoker Assessment/Plan All Active Problems Abdominal aortic aneurysm, ruptured (Resolved) Cardiac arrest (Resolved) Acute kidney injury (Acute) Tachycardia (Acute) DIC (disseminated intravascular coagulation) (Acute) Ileus (Acute) HCAP (healthcare-associated pneumonia) (Acute) Anemia (Acute) Unresponsive state (Acute) 78-year-old male with past medical history of hypertension, hyperlipidemia, status post recent prolonged complex hospitalization associated with syncope, serial responsive episodes and serial CODE BLUE, which are pending [facility]. Patient subsequently has been discharged to LTAC and finally in TCU. Patient was treated after an episode of unresponsiveness in TCU and confusion. This is reportedly similar to what he had been doing. 1. Recurrent syncope, no seizure related, EEG consistent with metabolic encephalopathy, neurology consulted, likely vasovagal due to tube feeds, tube feeds rates decreased as well as of large volumes, speech therapy already consulted 2. Possible Enterobacter HCAP, sputum growing Enterobacter Cluckey, sensitive to Levaquin, switched to Levaquin, 3. Chronic respiratory failure, status post tracheostomy, pulmonology consulted, 4. Hypokalemia, replaced, recheck in am 5. Acute on chronic normocytic normochromic/iron deficiency anemia, status post 2 PRBC transfusion, Hb is 9.6 now,continue also on oral iron 6. Chronic anoxic encephalopathy, appears to be at his baseline per family 7. Recent AAA status post repair 8. CAD, on aspirin, beta-dillon, not on statin. 9. Hypertension, controlled, continue metoprolol 10. Hyperlipidemia,not on statin 11. GERD, on PPI 12. Oral thrush 13. DVT PPx- On SCDs Code Visit Inpatient E&M: 18073 Subs Hosp L2
--- NOTE | 2018-04-03 15:47 | PN_ITS ---
Patient Problems: Active and Suspected Problems HCAP (healthcare-associated pneumonia) (Acute) Anemia (Acute) Unresponsive state (Acute) Subjective: Patient was seen and examined. No more on unresponsive episodes. No acute events overnight. Objective: Physical exam: General: Alert, Oriented x3, Cooperative, No apparent distress HEENT: Atraumatic, PERRLA, EOMI, Normocephalic Oral: Moist Mucosa Neck: Supple, - - Tracheostomy collar in place Lungs: Normal air movement, Diminished - at the Lung bases Cardiovascular: Regular rate, Regular Rhythm, Normal S1, Normal S2, No murmurs Abdomen: Bowel Sounds Present, Soft, Non Tender, Non-Distended, No Hepato- splenomegaly, - - Midline incisional scar, PEG tube in situ Extremities: No edema Skin: No rashes, No breakdown Musculoskeletal: No Tenderness to Palpation of Joints or Extremities Lymphatic: No Cervical, Supraclavicular, or Inguinal Adenopathy Neurological: Cranial nerves II-XII grossly intact Psych/Mental Status: Normal Affect, Appropriate Vitals/I&O's: Vital Signs Temp Pulse Resp BP Pulse Ox 97.4 F L 80 18 119/63 97 04/03/18 10:06 04/03/18 15:29 04/03/18 11:22 04/03/18 10:06 04/03/18 11:22 Oxygen Flow Rate (L/min) 6 Oxygen Delivery Method Trach Collar Weight: 81 kg Body Mass Index (BMI) 25.5 Intake and Output for Last 24 Hours 04/01/18 04/02/18 04/03/18 23:59 23:59 23:59 Intake Total 825.3 / 825.3 1619 / 1619 2298 / 2298 Output Total 52 / 52 Balance 825.3 / 825.3 1619 / 1619 2246 / 2246 Microbiology Past 72 Hours 04/01/18 22:55 Sputum, Induced/Lukens Gram Stain - Final 04/01/18 22:55 Sputum, Induced/Lukens Respiratory Culture - Preliminary Enterobacter cloacae complex 04/01/18 Unknown Mucosa - Nasopharyngeal Respiratory Panel (PCR) - Final Laboratory Results 04/01/18 04:04: Crossmatch See Detail 04/01/18 04:04: Crossmatch See Detail 04/02/18 22:20: Urine Color Yellow, Urine Clarity Clear, Urine pH 6.5, Ur Specific [place] 1.010, Urine Protein Negative, Urine Glucose (UA) Normal, Urine Ketones Negative, Urine Occult Blood Negative, Urine Nitrite Negative, Urine Bilirubin Negative, Urine Urobilinogen Normal, Ur Leukocyte Esterase 25 H, Urine RBC 0 SEEN, Urine WBC 0 SEEN, Ur Squamous Epith Cells 0 SEEN, Urine Bacteria 0 SEEN, Urine Mucus 0 SEEN 04/03/18 04:30: Vancomycin Trough 17.0 H 04/03/18 04:30: Sodium 144, Potassium 3.4 L, Chloride 108 H, Carbon Dioxide 23.0, BUN 18, Creatinine 1.28, Estim Creat Clear Calc 49.11, Est GFR (MDRD) Af Amer 70, Est GFR (MDRD) Non-Af 58 L, BUN/Creatinine Ratio 14.1, Glucose 96, Calcium 9.1, Phosphorus 3.7, Albumin 2.4 L 04/03/18 04:30: WBC 4.4, RBC 3.25 L, Hgb 9.6 L, Hct 29.4 L, MCV 90.5, MCH 29.5, MCHC 32.7, RDW 17.1 H, RDW Differential 53.7 H, Plt Count 210, MPV 9.2, Immature Gran % (Auto) 0.200, Neut % (Auto) 45.0 L, Lymph % (Auto) 35.1, [place] % (Auto) 9.3, Eos % (Auto) 10.2 H, Baso % (Auto) 0.2, Absolute Neuts (auto) 2.0, Absolute Lymphs (auto) 1.55, Total Counted Not Reportable Current Medications Albuterol Sulfate (Ventolin Aerosols) 2.5 mg INHALATION Q2H PRN PRN PRN Reason: SHORTNESS OF BREATH Albuterol/Ipratropium (Duoneb) 3 ml INHALATION Q4H.RT [facility] Last Admin: 04/03/18 11:22 Dose: 3 ml Aspirin (Aspirin, Baby) 81 mg GT DAILY@0800 [facility] Last Admin: 04/03/18 07:53 Dose: 81 mg Chlorhexidine Gluconate (Peridex) 15 ml PO BID [facility] Last Admin: 04/03/18 09:42 Dose: 15 ml Docusate Sodium (Colace Syrup) 100 mg GT BID [facility] Last Admin: 04/03/18 07:53 Dose: 100 mg Ferrous Sulfate (Ferrous Sulfate Syrup) 325 mg GT BID [facility] Last Admin: 04/03/18 07:54 Dose: 325 mg Heparin Sodium (Porcine) (Heparin Na) 5,000 unit SC BID [facility] Last Admin: 04/03/18 07:54 Dose: 5,000 unit Lactose (Pivot 1.5 Jaycob) 1,000 mls @ 15 mls/hr GT .Q48H [facility] Last Admin: 04/01/18 20:23 Dose: 15 mls/hr Levofloxacin (Levaquin Iv) 500 mg in 100 mls @ 100 mls/hr IV Q24 [facility] Stop: 04/09/18 10:01 Lansoprazole (Lansoprazole) 30 mg GT DAILY [facility] Last Admin: 04/03/18 07:53 Dose: 30 mg Magnesium Hydroxide (Milk Of Magnesia) 30 ml PO DAILY PRN PRN Reason: Constipation Metoprolol Tartrate (Lopressor (Beta Dillon)) 12.5 mg GT BID [facility] Last Admin: 04/03/18 09:41 Dose: 12.5 mg Nystatin (Nystatin) 100,000 unit PO 4X/DAY [facility] Last Admin: 04/03/18 15:23 Dose: 100,000 unit Ondansetron HCl (Zofran) 4 mg IV Q8H PRN PRN PRN Reason: NAUSEA Sodium Chloride () 5 - 30 ml IV UD PRN PRN Reason: SALINE FLUSH Medical Necessity - Tobacco Use Smoking Status: Never smoker Tobacco Use: Non-smoker Assessment/Plan All Active Problems Abdominal aortic aneurysm, ruptured (Resolved) Cardiac arrest (Resolved) Acute kidney injury (Acute) Tachycardia (Acute) DIC (disseminated intravascular coagulation) (Acute) Ileus (Acute) HCAP (healthcare-associated pneumonia) (Acute) Anemia (Acute) Unresponsive state (Acute) 78-year-old male with past medical history of hypertension, hyperlipidemia, status post recent prolonged complex hospitalization associated with syncope, serial responsive episodes and serial CODE BLUE, which are pending [facility]. Patient subsequently has been discharged to LTAC and finally in TCU. Patient was treated after an episode of unresponsiveness in TCU and confusion. This is reportedly similar to what he had been doing. 1. Recurrent syncope, no seizure related, EEG consistent with metabolic encepha lopathy, neurology consulted, likely vasovagal due to tube feeds, tube feeds rates decreased as well as of large volumes, speech therapy already consulted 2. Possible Enterobacter HCAP, sputum growing Enterobacter Cluckey, sensitive to Levaquin, switched to Levaquin, 3. Chronic respiratory failure, status post tracheostomy, pulmonology consulted, 4. Hypokalemia, replaced, recheck in am 5. Acute on chronic normocytic normochromic/iron deficiency anemia, status post 2 PRBC transfusion, Hb is 9.6 now,continue also on oral iron 6. Chronic anoxic encephalopathy, appears to be at his baseline per family 7. Recent AAA status post repair 8. CAD, on aspirin, beta-dillon, not on statin. 9. Hypertension, controlled, continue metoprolol 10. Hyperlipidemia,not on statin 11. GERD, on PPI 12. Oral thrush 13. DVT PPx- On SCDs Code Visit Inpatient E&M: 36262 Subs Hosp L2
[2018-04-03] MEDS: Pivot 1.5 Cal 1,000 ML 15 ML GT (17:53)
[2018-04-03] MEDS: Menthol/Lanolin/Calamine/Znox 113 GM Tube 1 APPLIC TOPICAL (21:43)
--- NOTE | 2018-04-03 23:15 | NURSING ---
RT in at bedside at this time giving breathing treatment, and inner cannula was changed by RT at this time as well. Family remains at bedside.
[2018-04-04] VITALS (10 sets, daily range): BP systolic 106–117; BP diastolic 58–70; PULSE 65–85; RESP 16–20; TEMP 36.3–36.8; O2SAT 97–99
[2018-04-04] MEDS: Ipratropium/Albuterol Sulfate 3 ML AMPUL.NEB INHALATION ×3 (03:10→11:21)
[2018-04-04] MEDS: Menthol/Lanolin/Calamine/Znox 113 GM Tube 1 APPLIC TOPICAL (06:03)
[2018-04-04 07:08] LABS: Albumin, Serum 2.3 g/dL (3.2-5.0); BUN 18 mg/dL (7-18); BUN/Creat Ratio 14.6 RATIO (10-20); Calcium,Total 9.3 mg/dL (8.5-10.1); Chloride 107 mmol/L (98-107); Creatinine, Serum 1.23 mg/dL (0.70-1.30); EST Glomerular Filtration Rate 61 mL/min (>60); Est Glom Filt Rate - Afr Amer 73 mL/min (>60); Estimated Creatinine Clearance 51.11 ml/min; Glucose 87 mg/dL (74-106); Phosphorus 3.1 mg/dL (2.5-4.9); Potassium 3.3 mmol/L (3.5-5.1); Sodium Level 142 mmol/L (136-145)
[2018-04-04] MEDS: NYSTATIN 500,000 UNIT/5 ML UDC 100000 UNIT PO (09:19)
[2018-04-04] MEDS: levoFLOXacin IV 500 MG/100 ML BAG 100 MG IV (09:19)
[2018-04-04] MEDS: Chlorhexidine 480 ML 15 ML PO (09:19)
[2018-04-04] MEDS: Glycerin/Hypromellose/PEG400 15 ml Bottle 1 DRP EACH EYE (09:23)
[2018-04-04] MEDS: Heparin Injection (Vial) 5,000 UNIT/ML VIAL 5000 UNIT SC (09:25)
[2018-04-04] MEDS: Ferrous Sulfate 300 MG/5 ML UDC 325 MG GT (09:27)
[2018-04-04] MEDS: Docusate Sodium 100 MG/10 ML UDC GT (09:27)
[2018-04-04] MEDS: Aspirin 81 MG TAB.CHEW GT (09:28)
[2018-04-04] MEDS: LANSOPRAZOLE 15 MG CAPSULE.DR 30 MG GT (09:28)
[2018-04-04] MEDS: Metoprolol Tartrate 25 MG Tablet 12.5 MG GT (09:28)
--- NOTE | 2018-04-04 09:48 | PCM.PROGNOTE ---
Patient Problems: Active and Suspected Problems HCAP (healthcare-associated pneumonia) (Acute) Anemia (Acute) Unresponsive state (Acute) Subjective: Patient did well overnight. Nursing is reporting improved secretions compared to previous. Oxygenation has been doing well. Patient denies any chest pain and is more alert today compared to yesterday. Did discuss with the family at the bedside about patient's current condition. - Physical Exam General: Alert, Cooperative, No apparent distress, - - Appears older than stated age. Speaking in full sentences. HEENT: Atraumatic, PERRLA, EOMI, Normocephalic, - - No scleral icterus or injection noted. Oral: Moist Mucosa, No Gingival or Mucosal Lesions/ Ulcerations Neck: Supple, No JVD, No Nodes, Trachea Midline, - - Trach is clean, dry and intact. Lungs: No wheeze, No rales, Diminished, Rhonchi - Improved from previous, - - Symmetric expansion. Cardiovascular: Regular rate, Regular Rhythm, Normal S1, Normal S2, No murmurs, No rub noted, No Gallop Abdomen: Bowel Sounds Present, Soft, Non Tender, Non-Distended Extremities: No clubbing, No cyanosis, Capillary Refill Less than 3 Seconds, Edema - Trace Skin: - - No significant change compared to previous Musculoskeletal: No Tenderness to Palpation of Joints or Extremities Lymphatic: No Cervical, Supraclavicular, or Inguinal Adenopathy Neurological: - - Similar to previous exam tremor appears to be improved. Otherwise, Psych/Mental Status: Normal Affect, Appropriate Vital Signs Temp Pulse Resp BP Pulse Ox 36.3 C L 82 20 H 106/58 L 97 04/04/18 09:15 04/04/18 09:28 04/04/18 09:15 04/04/18 09:15 04/04/18 09:15 Oxygen Flow Rate (L/min) 6 Oxygen Delivery Method Trach Collar Weight: 81 kg Body Mass Index (BMI) 25.5 Intake and Output for Last 24 Hours 04/02/18 04/03/18 04/04/18 23:59 23:59 23:59 Intake Total 1619 / 1619 2892 / 2892 390 / 390 Output Total 102 / 102 Balance 1619 / 1619 2790 / 2790 390 / 390 Microbiology Past 72 Hours 04/01/18 12:00 Respiratory Culture - Preliminary Sputum, Tracheal Aspirate GNR lactose manager security 04/01/18 22:55 Gram Stain - Final Sputum, Induced/Lukens Respiratory Culture - Final Enterobacter cloacae complex 04/03/18 15:20 Stool Occult Blood (ARPAN) - Final Stool 04/03/18 14:54 Streptococcus pneumoniae Antigen (M - Final Urine, Clean Catch 04/03/18 14:54 Legionella Antigen - Final Urine, Clean Catch 04/01/18 Unknown Respiratory Panel (PCR) - Final Mucosa - Nasopharyngeal Laboratory Tests Past 24 Hrs 04/04/18 06:07 Sodium 142 Potassium 3.3 L Chloride 107 Carbon Dioxide 25.0 BUN 18 Creatinine 1.23 Estim Creat Clear Calc 51.11 Est GFR (MDRD) Af Amer 73 Est GFR (MDRD) Non-Af 61 BUN/Creatinine Ratio 14.6 Glucose 87 Calcium 9.3 Phosphorus 3.1 Albumin 2.3 L Medical Necessity - Tobacco Use Smoking Status: Never smoker Tobacco Use: Non-smoker Assessment/Plan All Active Problems Abdominal aortic aneurysm, ruptured (Resolved) Cardiac arrest (Resolved) Acute kidney injury (Acute) Tachycardia (Acute) DIC (disseminated intravascular coagulation) (Acute) Ileus (Acute) HCAP (healthcare-associated pneumonia) (Acute) Anemia (Acute) Unresponsive state (Acute) RECOMMENDATIONS: 1. Wean oxygen as tolerated, consider vest therapy 2. Change antibiotics given sputum culture 3. Likely okay to initiate PMV trial in 1-2 days 4. If tolerates PMV trial, capping trial can be initiated 5. Reasonable candidate for possible decannulation 6. Consider continuous tube feeds as opposed to bolus IMPRESSIONS: 1. Chronic respiratory failure secondary to complicated hospital course Patient currently with tracheostomy requiring supplemental oxygen. Patient has responded very well to therapy. Patient is growing Enterobacter from his sputum culture. Patient needs a total of 7 days of Levaquin therapy. However, can likely initiate PMV trials after another 24-48 hours. If able to tolerate this for a day or 2, transition to capping trials would be appropriate. Speech therapy may be able to evaluate swallow once using PMV. 2. Recurrent syncope Thought is this is a vasovagal episode. EEG was relatively unremarkable for any etiology. Review of the notes showed no hemodynamic instability over the course of the hospitalization. Patient does have a drop in hemoglobin, but workup is currently underway. 3. Recent AAA repair/CAD/hypertension/hyperlipidemia/GERD/advanced age Complicates care, management, recovery and prognosis Code Visit Inpatient E&M: 82015 Subs Hosp L2
--- NOTE | 2018-04-04 10:10 | PCM.TXEXTCAR ---
- Diet 04/01/18 05:50 Diet: Nothing Per Oral Tube Feed: TwoCal 25mls/hour - Routine Orders/Code Status O2 Liters per Minute: Via trach collar O2 Frequency: Continuous Routine Lab Work: CBC - within 3 days, BMP - within 3 days Code Status: Full Code - Therapies Physical Therapy: Eval and Treat Occupational Therapy: Eval and Treat Speech Therapy: Eval and Treat - Allergies/Procedures Done in Hospital Allergies/Adverse Reactions: Allergies famotidine [From Pepcid] Adverse Reaction (Verified 04/01/18 03:17) Low blood pressure metoclopramide [From Reglan] Adverse Reaction (Verified 04/01/18 03:17) Other Procedures: None - Type of Care/Length of Stay Estimated LOS: Convalescent Care Less Than 30 days Type of Care Needed: Skilled Rehab Potential: Good Prognosis: Good - Dietary and Speech Recommendations Dietitian Recommendations/Changes: Rec continue Pivot 1.5 at 15cc/hour and increase by 10cc every 8 hours as pt tolerates until goal rate of 55cc/hour is reached. Would start flushes at 75cc q 4 hours and increase as tube feeding is increased by 25cc until goal flushes of 175cc are achieved. When at goal rate, tube feeding and flushes will provide 1980 calories, 123 g protein, and 2051cc free fluid per day. When TwoCal HN product available, rec goal rate of 40cc/hour w/ 150cc flush q 4 hours to provide 1920 calories, 80 g protein, and 1572cc free fluid/day. As pt tolerates this recommendation, would suggest increasing flushes to meet pt's fluid needs. Would start this product at 10cc/hour and increase by 10cc every 6 to 8 hours as pt tolerates until goal rate achieved. - Follow Up Care Primary Care Physician: Jack Olmedo MD [Primary Care Provider] -
--- NOTE | 2018-04-04 10:21 | TREXTCAR_ITS ---
- Diet 04/01/18 05:50 Diet: Nothing Per Oral Tube Feed: TwoCal tube feeds, see below in [employer] Scientist notes - Routine Orders/Code Status O2 Liters per Minute: via trach collar Keep PO Greater than or Equal to (%): 92 Routine Lab Work: CBC - within 3 days, BMP - within 3 days Code Status: Full Code - Therapies Physical Therapy: Eval and Treat Occupational Therapy: Eval and Treat Speech Therapy: Eval and Treat - Allergies/Procedures Done in Hospital Allergies/Adverse Reactions: Allergies famotidine [From Pepcid] Adverse Reaction (Verified 04/01/18 03:17) Low blood pressure metoclopramide [From Reglan] Adverse Reaction (Verified 04/01/18 03:17) Other Procedures: None - Type of Care/Length of Stay Estimated LOS: Convalescent Care Less Than 30 days Type of Care Needed: Skilled Rehab Potential: Fair Prognosis: Fair - Additional Orders/Day of Discharge Additional Orders: Continue on trach collar for 1-2 days. Consider initiation of PMV trial in 1-2 days. If tolerates PMV trial, capping trial can be initiated. Day of Discharge: 04/04/18 - Dietary and Speech Recommendations Dietitian Recommendations/Changes: Rec TwoCal HN at goal rate of 40cc/hour w/ 50cc flush q 2 hours to provide 1920 calories, 80 g protein, and 1272cc free fluid/day. Would start this product at 25cc/hour and increase by 5cc DAILY as pt tolerates until goal rate achieved. Would start flushes at 50cc q 4 hours and transition to 50cc q 2 hours once pt meets goal TF rate. Over time, free fluid flushes will need to be increased to meet pt's fluid needs, RD will continue to follow and adjust recommendations accordingly. - Follow Up Care Primary Care Physician: Jack Olmedo MD [Primary Care Provider] - Please Follow Up With: Nelson Mathews MD When: in 4 weeks
--- NOTE | 2018-04-04 10:54 | CASEMGMT ---
Addendum entered by Renetta Archer 04/04/18 11:55: Family is present so they are aware of d/c to TCU today. Renetta LIU Original Note: Patient will be discharged to [facility] TCU today. Renetta LIU
--- NOTE | 2018-04-04 11:29 | DS.PCM_ITS ---
Discharge Date and Diagnosis Date of Admission: 04/01/18 Date of Discharge: 04/04/18 - Primary Discharge Diagnosis Active and Suspected Problems HCAP (healthcare-associated pneumonia) (Acute) Anemia (Acute) Unresponsive state (Acute) - Secondary Discharge Diagnosis Chronic Problems Anoxic encephalopathy (Chronic) Hyperlipidemia (Chronic) Iron deficiency anemia (Chronic) GERD (gastroesophageal reflux disease) (Chronic) Dysphagia (Chronic) Coronary artery disease (Chronic) Hypertension (Chronic) Hospital Course and Treatment Imaging Results: Clinical Impression(s) from Imaging Studies Brain CT 04/01/18 02:37 IMPRESSION: Chronic involutional changes of the brain. New lateral mastoiditis and interval development of chronic sinusitis. Remote injury to the left maxillary sinus suspected. There is no acute intracranial pathology. Electronically Signed: Santa Travis MD at 4:01 EDT , Service support , Chest X-Ray 04/03/18 04:35 IMPRESSION: Improving bibasilar subsegmental atelectasis versus pneumonia. Electronically Signed: Tim Drew MD at 5:38 EDT , Service support , Pulmonology Neurology Operations: None Procedures: Electroencephalogram Summary of Care Provided: 78-year-old male with past medical history of hypertension, hyperlipidemia, status post recent prolonged complex hospitalization associated with syncope, serial responsive episodes and serial CODE BLUE, which are pending [facility]. Patient subsequently has been discharged to LTAC and finally in TCU. Patient was transferred to the hospital after an episode of unresponsiveness. 1. Recurrent syncope, no seizure related, EEG done and is consistent with metabolic encephalopathy, neurology consulted believes it is likely vasovagal due to tube feeds, tube feeds rates decreased as well as of large volumes, speech therapy and dietitian were consulted. Patient's tube feeds were switched to TwoCal per family request. 2. Possible Enterobacter HCAP, usually managed on vancomycin and Zosyn, sputum cultures growing Enterobacter Cloacae, sensitive to Levaquin, switched to Levaquin for 7 more days 3. Chronic respiratory failure, status post tracheostomy, pulmonology consulted, recommendations will be followed for possible weaning of tracheostomy in the alf facility 4. Hypokalemia, replaced 5. Acute on chronic normocytic normochromic/iron deficiency anemia, status post 2 PRBC transfusion, posttransfusion Hb was 9.6, stable 6. Chronic anoxic encephalopathy, appears to be at his baseline per family 7. Recent AAA status post repair 8. CAD, on aspirin, beta-lyric, not on statin. 9. Hypertension, controlled, continue metoprolol 10. Hyperlipidemia,not on statin 11. Dysphagia related to anoxic encephalopathy, POA, status post PEG tube, on tube feeds Subjective: No acute events overnight. No episodes of unresponsiveness. No complaints from patient. Objective: Physical exam: General: Alert, Oriented x3, Cooperative, No apparent distress HEENT: Atraumatic, PERRLA, EOMI, Normocephalic Oral: Moist Mucosa Neck: Supple, - - Tracheostomy collar in place Lungs: Normal air movement, Diminished - at the Lung bases Cardiovascular: Regular rate, Regular Rhythm, Normal S1, Normal S2, No murmurs Abdomen: Bowel Sounds Present, Soft, Non Tender, Non-Distended, No Hepato-sp lenomegaly, - - Midline incisional scar, PEG tube in situ Extremities: No edema Skin: No rashes, No breakdown Musculoskeletal: No Tenderness to Palpation of Joints or Extremities Lymphatic: No Cervical, Supraclavicular, or Inguinal Adenopathy Neurological: Cranial nerves II-XII grossly intact Psych/Mental Status: Normal Affect, Appropriate - Physical Exam Vital Signs Temp Pulse Resp BP Pulse Ox 97.3 F L 82 20 H 106/58 L 97 04/04/18 09:15 04/04/18 09:28 04/04/18 09:15 04/04/18 09:15 04/04/18 09:15 Oxygen Flow Rate (L/min) 6 Oxygen Delivery Method Trach Collar Weight: 81 kg Body Mass Index (BMI) 25.5 Intake and Output for Last 24 Hours 04/02/18 04/03/18 04/04/18 23:59 23:59 23:59 Intake Total 1619 / 1619 2892 / 2892 877 / 877 Output Total 102 / 102 Balance 1619 / 1619 2790 / 2790 877 / 877 Microbiology Past 72 Hours 04/03/18 15:35 Gram Stain - Final Sputum, Tracheal Aspirate Respiratory Culture - Preliminary GNR lactose perinatal technician 10/27/18 12:00 Gram Stain - Final Sputum, Tracheal Aspirate Respiratory Culture - Preliminary GNR lactose perinatal technician 04/01/18 22:55 Gram Stain - Final Sputum, Induced/Lukens Respiratory Culture - Final Enterobacter cloacae complex 04/03/18 15:20 Stool Occult Blood (ARPAN) - Final Stool 04/03/18 14:54 Streptococcus pneumoniae Antigen (M - Final Urine, Clean Catch 04/03/18 14:54 Legionella Antigen - Final Urine, Clean Catch 04/01/18 Unknown Respiratory Panel (PCR) - Final Mucosa - Nasopharyngeal Laboratory Tests Past 24 Hrs 04/04/18 06:07 Sodium 142 Potassium 3.3 L Chloride 107 Carbon Dioxide 25.0 BUN 18 Creatinine 1.23 Estim Creat Clear Calc 51.11 Est GFR (MDRD) Af Amer 73 Est GFR (MDRD) Non-Af 61 BUN/Creatinine Ratio 14.6 Glucose 87 Calcium 9.3 Phosphorus 3.1 Albumin 2.3 L Discharge Diet: Low fat/ Low Cholesterol, 2000 mg Sodium Diet Discharge Activity: Return to Normal Activity Home Medications: Medications to take at Discharge Chlorhexidine 15 ml PO BID 03/28/18 Docusate Sodium [COLACE LIQUID] 100 mg GT BID 03/28/18 Ferrous Sulfate Syrup 325 mg GT BID 03/28/18 Heparin Injection 5,000 units SC BID 03/28/18 Ipratropium/Albuterol Sulfate [Duoneb] 3 ml INHALATION TID 03/28/18 Lansoprazole [Prevacid] 30 mg GT DAILY 03/28/18 Metoprolol Tartrate [Lopressor (beta lyric)] 12.5 mg GT BID 03/28/18 Nystatin 100,000 unit PO 4X/DAY 03/28/18 Propylene Glycol/Peg 400/Pf [Systane 0.3-0.4% Eye Drop] 1 each OP BID 03/28/18 Albuterol Aerosols [Ventolin Aerosols] 2.5 mg INHALATION Q2H PRN PRN vial.neb. 04/04/18 Levofloxacin [Levaquin] 500 mg GT DAILY 04/04/18 Primary Care Physician: Jack Olmedo MD [Primary Care Provider] - Please Follow Up With: Nelson Mathews MD When: in 4 weeks Disposition: Custodial facility Minutes spent on discharge:: 50 Patient Condition:: Stable Medical Necessity - Tobacco Use Smoking Status: Never smoker Tobacco Use: Non-smoker Meaningful Use Info Meaningful Use Diagnoses (Choose all that apply): None applicable Code Visit Inpatient E&M: 86165 Disch Hosp
--- NOTE | 2018-04-04 12:09 | NURSING ---
Called report to Basil GARDNER in TCU
== END 2018-04-04 12:30 | disposition skilled nursing facility (03) | DRG 177 ==
LOC: ED 02:53 → PCU 05:36
PROVIDERS: Admitting Provider Family Medicine; Emergency Provider Emergency Medicine; Family Provider Family Medicine; PCP Family Medicine; Visit Provider Internal Medicine
DX: J15.6 Pneumonia due to other Gram-negative bacteria (principal); G93.41 Metabolic encephalopathy; G93.1 Anoxic brain damage, not elsewhere classified; B37.0 Candidal stomatitis; J96.10 Chronic respiratory failure, unspecified whether with hypoxia or hypercapnia; R55 Syncope and collapse; Z86.74 Personal history of sudden cardiac arrest; Z93.0 Tracheostomy status; Z93.1 Gastrostomy status; Z99.81 Dependence on supplemental oxygen; K21.9 Gastro-esophageal reflux disease without esophagitis; R13.12 Dysphagia, oropharyngeal phase; I25.10 Atherosclerotic heart disease of native coronary artery without angina pectoris; E78.5 Hyperlipidemia, unspecified; I10 Essential (primary) hypertension; Y95 Nosocomial condition; E87.6 Hypokalemia; D50.9 Iron deficiency anemia, unspecified
CPT/HCPCS: 31720; 36415; 70450; 71045; 80048; 80053; 80069; 80202; 81001; 82274; 83735; 84100; 85025; 86850; 86900; 86920; 86922; 87070; 87077; 87186; 87205; 87449; 87633; 93005; 94640; 97110; 97163; 97166; 97530; 97802; 97803; 99282; J7030; J7040; J7050; P9016; A4216; J1940

== ENCOUNTER 2018-04-04 12:40 | Inpatient (IN) | payer MEDICARE, SELFPAY ==
[2018-04-04 13:04] VITALS: BP 140/69; PULSE 84; RESP 24; TEMP 36.6; O2SAT 99; BMI 23.0
[2018-04-04 16:00] VITALS: BP 122/80; PULSE 87; RESP 20; TEMP 35.9; O2SAT 98
[2018-04-04 16:43] VITALS: BP 122/80; PULSE 87
[2018-04-04] MEDS: Metoprolol Tartrate 25 MG Tablet 12.5 MG GT (16:43)
[2018-04-04] MEDS: Ferrous Sulfate 300 MG/5 ML UDC 325 MG GT (16:43)
[2018-04-04] MEDS: Heparin Injection (Vial) 5,000 UNIT/ML VIAL 5000 UNIT SC (16:43)
[2018-04-04] MEDS: NYSTATIN 500,000 UNIT/5 ML UDC 100000 UNIT PO ×2 (16:44→20:09)
[2018-04-04 19:10] VITALS: PULSE 80; RESP 16
[2018-04-04] MEDS: Ipratropium/Albuterol Sulfate 3 ML AMPUL.NEB INHALATION (19:10)
--- NOTE | 2018-04-04 19:40 | PCM.HP.STD ---
Problem List (1) Change in mental status Status: Acute (2) Vasovagal syndrome Status: Chronic (3) Aspiration pneumonia Status: Acute (4) Coronary artery disease Status: Chronic (5) Abdominal aortic aneurysm, ruptured Status: Resolved (6) Cardiac arrest Status: Resolved (7) Anoxic encephalopathy Status: Chronic (8) Hyperlipidemia Status: Chronic Qualifiers: (9) GERD (gastroesophageal reflux disease) Status: Chronic Qualifiers: (10) Dysphagia Status: Chronic Qualifiers: (11) HCAP (healthcare-associated pneumonia) Status: Acute (12) Anemia Status: Chronic Qualifiers: (13) Hypertension Status: Chronic Qualifiers: History of Present Illness Date of Admission: 04/04/18 Chief Complaint: Here for rehabilitation, strengthening, prior to disposition determination. The patient is a 78 year old Male with below past medical history significant for ruptured AAA with repair, anoxic encephalopathy, trach, peg, TCU resident transferred to [facility] Emergency Department 04/01/2018 with change in mental status. 04/01/2018 CT brain chronic involutional changes, chronic sinusitis. 04/01/2018 EKG sinus rhythm with occasional premature ventricular contractions. Unresponsive per family. Labs showed anemia, leukopenia. Chest X-ray showed right lower lobe infiltrate, worsened. IV Antibiotics given for aspiration pneumonia. 04/01/2018 Admit to Hospital. IV Zosyn, IV Vancomycin for healthcare associated pneumonia. Tube feeding rate decreased, family felt higher TF rates caused episodes of unresponsiveness at LTAC. 03/31/2018 EEG showed medication effect, epileptiform changes. 04/02/2018 Dr. Styles recommended decreasing TF rate for vasovagal syndrome from high TF rates. 04/03/2018 Dr. Mathews recommended weaning oxygen, consider VEST therapy. Adjust antibiotics per sputum culture results. Start PMV trial, then capping trial, then decannulation. TF rate decrease, TF changed to TwoCal. Enterobacter Cloacae HCAP treated with Levaquin. Weaning of tracheostomy. Transfused 2 units PRBC. 04/04/2018 Admit to TCU for rehabilitation, strengthening, prior to disposition determination. Past Medical History Past Medical History (Chronic Problems): Chronic Problems Anoxic encephalopathy (Chronic) Hyperlipidemia (Chronic) Iron deficiency anemia (Chronic) GERD (gastroesophageal reflux disease) (Chronic) Dysphagia (Chronic) Anemia (Chronic) Vasovagal syndrome (Chronic) Coronary artery disease (Chronic) Coronary artery disease (Chronic) Hypertension (Chronic) Allergies famotidine [From Pepcid] Adverse Reaction (Verified 04/01/18 03:17) Low blood pressure metoclopramide [From Reglan] Adverse Reaction (Verified 04/01/18 03:17) Other Home Medications: Ambulatory Orders Medication Instructions Recorded Chlorhexidine 15 ml PO BID 03/28/18 Docusate Sodium [COLACE LIQUID] 100 mg GT BID 03/28/18 Ferrous Sulfate Syrup 325 mg GT BID 03/28/18 Heparin Injection 5,000 units SC BID 03/28/18 Ipratropium/Albuterol Sulfate 3 ml INHALATION TID 03/28/18 [Duoneb] Lansoprazole [Prevacid] 30 mg GT DAILY 03/28/18 Metoprolol Tartrate [Lopressor 12.5 mg GT BID 03/28/18 (beta lyric)] Nystatin 100,000 unit PO 4X/DAY 03/28/18 Propylene Glycol/Peg 400/Pf 1 each OP BID 03/28/18 [Systane 0.3-0.4% Eye Drop] Albuterol Aerosols [Ventolin 2.5 mg INHALATION Q2H PRN PRN 04/04/18 Aerosols] vial.neb. Levofloxacin [Levaquin] 500 mg GT DAILY 04/04/18 Surgical History: - - LUE surgery w/ hardware, recent emergent AAA repair, trach, PEG. Psychiatric History: No pertinent psych hx Lives: Correction Smoking Status: Never smoker Tobacco Use: Non-smoker Alcohol: None Drugs: None - *Family History Paternal History Items: - - No marked maternal or paternal family history reported including HD, DM, CA. Maternal History Items: - - No marked maternal or paternal family history reported including HD, DM, CA. Review of Systems Constitutional: Denies: Chills, Fever, Weight Change HEENT: Denies: Head Aches, Sinus Congestion, Sinus Drainage Cardiovascular: Denies: Chest Pain, Palpitations Respiratory: Denies: Cough, Shortness of breath at rest, Sputum production Gastrointestinal: Denies: Abdominal Pain, Nausea, Vomiting Genitourinary: Denies: Dysuria Musculoskeletal: Denies: Joint Pain, Joint Tenderness Skin: Denies: Rash, Wounds Neurological: Denies: Numbness, Tingling, Focal weakness Psychiatric: Denies: Anxiety, Depression, Homicidal Ideations, Suicidal Ideations Hematologic/ Lymphatic: Denies: Easy Bruising, Easy Bleeding VTE Information - Inpt Only VTE Present on Admission: No VTE Mechan Device Prophylaxis: Knee High SKYE Hose VTE Pharm Prophylaxis ordered?: Yes Patient Problems: Active and Suspected Problems Change in mental status (Acute) Aspiration pneumonia (Acute) - Physical Exam General: Alert, Oriented x3, Cooperative HEENT: Atraumatic, PERRLA, EOMI, Normocephalic Neck: Supple, No JVD, Negative Carotid Bruits, - - Tracheostomy. Lungs: Clear to auscultation, Normal air movement Cardiovascular: Regular rate, No murmurs Abdomen: Bowel Sounds Present, Soft, Non Tender, - - PEG. Extremities: No edema, Capillary Refill Less than 3 Seconds Skin: No rashes, No breakdown Musculoskeletal: No Tenderness to Palpation of Joints or Extremities Neurological: Cranial nerves II-XII grossly intact Psych/Mental Status: Normal Affect, Appropriate Vital Signs Temp Pulse Resp BP Pulse Ox 96.7 F L 87 20 H 122/80 H 98 04/04/18 16:00 04/04/18 16:43 04/04/18 16:00 04/04/18 16:43 04/04/18 16:00 Oxygen Delivery Method Trach Collar Weight: 72.68 kg Body Mass Index (BMI) 23.0 Assessment/Plan All Active Problems Abdominal aortic aneurysm, ruptured (Resolved) Cardiac arrest (Resolved) Acute kidney injury (Acute) Tachycardia (Acute) DIC (disseminated intravascular coagulation) (Acute) Ileus (Acute) HCAP (healthcare-associated pneumonia) (Acute) Unresponsive state (Acute) Change in mental status (Acute) Aspiration pneumonia (Acute) 78 year old male with below past medical history significant for ruptured AAA status post emergent repair, hospitalized for change in mental status secondary to vasovagal syndrome, complicated by E. Cloacae HCAP, anemia, admitted to TCU with debility, here for rehabilitation, strengthening, prior to disposition determination. Debility - PT/OT. Dysphagia - ST. Pain - Tylenol 650MG GT Q4H PRN mild pain. Bowel - Colace 100MG BID. Pneumonia vaccination - Resident family declined pneumonia vaccinations. DVT prophylaxis - Heparin 5000 units SC BID. Shortness of breath - Duoneb 3ML TID, Albuterol 2.5MG Q2H PRN. Iron deficiency anemia - Ferrous Sulfate 325MG BID. GERD - Lansoprazole 30MG daily. E. Cloacae HCAP - Levaquin 500MG daily thru 04/11/2018. Coronary Artery Disease - Metoprolol 12.5MG BID. Thrush - Nystatin 100,000 4x/day thru 04/14/2018. Dry Eyes - Artificial Tears 1GTT OU BID.
--- NOTE | 2018-04-04 19:49 | HP.PCM_ITS ---
Problem List (1) Change in mental status Status: Acute (2) Vasovagal syndrome Status: Chronic (3) Aspiration pneumonia Status: Acute (4) Coronary artery disease Status: Chronic (5) Abdominal aortic aneurysm, ruptured Status: Resolved (6) Cardiac arrest Status: Resolved (7) Anoxic encephalopathy Status: Chronic (8) Hyperlipidemia Status: Chronic Qualifiers: (9) GERD (gastroesophageal reflux disease) Status: Chronic Qualifiers: (10) Dysphagia Status: Chronic Qualifiers: (11) HCAP (healthcare-associated pneumonia) Status: Acute (12) Anemia Status: Chronic Qualifiers: (13) Hypertension Status: Chronic Qualifiers: History of Present Illness Date of Admission: 04/04/18 Chief Complaint: Here for rehabilitation, strengthening, prior to disposition determination. The patient is a 78 year old Male with below past medical history significant for ruptured AAA with repair, anoxic encephalopathy, trach, peg, TCU resident transferred to [facility] Emergency Department 04/01/2018 with change in mental status. 04/01/2018 CT brain chronic involutional changes, chronic sinusitis. 04/01/2018 EKG sinus rhythm with occasional premature ventricular contractions. Unresponsive per family. Labs showed anemia, leukopenia. Chest X-ray showed right lower lobe infiltrate, worsened. IV Antibiotics given for aspiration pneumonia. 04/01/2018 Admit to Hospital. IV Zosyn, IV Vancomycin for healthcare associated pneumonia. Tube feeding rate decreased, family felt higher TF rates caused episodes of unresponsiveness at LTAC. 03/31/2018 EEG showed medication effect, epileptiform changes. 04/02/2018 Dr. Styles recommended decreasing TF rate for vasovagal syndrome from high TF rates. 04/03/2018 Dr. Mathews recommended weaning oxygen, consider VEST therapy. Adjust antibiotics per sputum culture results. Start PMV trial, then capping trial, then decannulation. TF rate decrease, TF changed to TwoCal. Enterobacter Cloacae HCAP treated with Levaquin. Weaning of tracheostomy. Transfused 2 units PRBC. 04/04/2018 Admit to TCU for rehabilitation, strengthening, prior to disposition determination. Past Medical History Past Medical History (Chronic Problems): Chronic Problems Anoxic encephalopathy (Chronic) Hyperlipidemia (Chronic) Iron deficiency anemia (Chronic) GERD (gastroesophageal reflux disease) (Chronic) Dysphagia (Chronic) Anemia (Chronic) Vasovagal syndrome (Chronic) Coronary artery disease (Chronic) Coronary artery disease (Chronic) Hypertension (Chronic) Allergies famotidine [From Pepcid] Adverse Reaction (Verified 04/01/18 03:17) Low blood pressure metoclopramide [From Reglan] Adverse Reaction (Verified 04/01/18 03:17) Other Home Medications: Ambulatory Orders Medication Instructions Recorded Chlorhexidine 15 ml PO BID 03/28/18 Docusate Sodium [COLACE LIQUID] 100 mg GT BID 03/28/18 Ferrous Sulfate Syrup 325 mg GT BID 03/28/18 Heparin Injection 5,000 units SC BID 03/28/18 Ipratropium/Albuterol Sulfate 3 ml INHALATION TID 03/28/18 [Duoneb] Lansoprazole [Prevacid] 30 mg GT DAILY 03/28/18 Metoprolol Tartrate [Lopressor 12.5 mg GT BID 03/28/18 (beta lyric)] Nystatin 100,000 unit PO 4X/DAY 03/28/18 Propylene Glycol/Peg 400/Pf 1 each OP BID 03/28/18 [Systane 0.3-0.4% Eye Drop] Albuterol Aerosols [Ventolin 2.5 mg INHALATION Q2H PRN PRN 04/04/18 Aerosols] vial.neb. Levofloxacin [Levaquin] 500 mg GT DAILY 04/04/18 Surgical History: - - LUE surgery w/ hardware, recent emergent AAA repair, trach, PEG. Psychiatric History: No pertinent psych hx Lives: Snf Smoking Status: Never smoker Tobacco Use: Non-smoker Alcohol: None Drugs: None - *Family History Paternal History Items: - - No marked maternal or paternal family history reported including HD, DM, CA. Maternal History Items: - - No marked maternal or paternal family history reported including HD, DM, CA. Review of Systems Constitutional: Denies: Chills, Fever, Weight Change HEENT: Denies: Head Aches, Sinus Congestion, Sinus Drainage Cardiovascular: Denies: Chest Pain, Palpitations Respiratory: Denies: Cough, Shortness of breath at rest, Sputum production Gastrointestinal: Denies: Abdominal Pain, Nausea, Vomiting Genitourinary: Denies: Dysuria Musculoskeletal: Denies: Joint Pain, Joint Tenderness Skin: Denies: Rash, Wounds Neurological: Denies: Numbness, Tingling, Focal weakness Psychiatric: Denies: Anxiety, Depression, Homicidal Ideations, Suicidal Ideations Hematologic/ Lymphatic: Denies: Easy Bruising, Easy Bleeding VTE Information - Inpt Only VTE Present on Admission: No VTE Mechan Device Prophylaxis: Knee High SKYE Hose VTE Pharm Prophylaxis ordered?: Yes Patient Problems: Active and Suspected Problems Change in mental status (Acute) Aspiration pneumonia (Acute) - Physical Exam General: Alert, Oriented x3, Cooperative HEENT: Atraumatic, PERRLA, EOMI, Normocephalic Neck: Supple, No JVD, Negative Carotid Bruits, - - Tracheostomy. Lungs: Clear to auscultation, Normal air movement Cardiovascular: Regular rate, No murmurs Abdomen: Bowel Sounds Present, Soft, Non Tender, - - PEG. Extremities: No edema, Capillary Refill Less than 3 Seconds Skin: No rashes, No breakdown Musculoskeletal: No Tenderness to Palpation of Joints or Extremities Neurological: Cranial nerves II-XII grossly intact Psych/Mental Status: Normal Affect, Appropriate Vital Signs Temp Pulse Resp BP Pulse Ox 96.7 F L 87 20 H 122/80 H 98 04/04/18 16:00 04/04/18 16:43 04/04/18 16:00 04/04/18 16:43 04/04/18 16:00 Oxygen Delivery Method Trach Collar Weight: 72.68 kg Body Mass Index (BMI) 23.0 Assessment/Plan All Active Problems Abdominal aortic aneurysm, ruptured (Resolved) Cardiac arrest (Resolved) Acute kidney injury (Acute) Tachycardia (Acute) DIC (disseminated intravascular coagulation) (Acute) Ileus (Acute) HCAP (healthcare-associated pneumonia) (Acute) Unresponsive state (Acute) Change in mental status (Acute) Aspiration pneumonia (Acute) 78 year old male with below past medical history significant for ruptured AAA status post emergent repair, hospitalized for change in mental status secondary to vasovagal syndrome, complicated by E. Cloacae HCAP, anemia, admitted to TCU with debility, here for rehabilitation, strengthening, prior to disposition determination. * Debility - PT/OT. * Dysphagia - ST. * Pain - Tylenol 650MG GT Q4H PRN mild pain. * Bowel - Colace 100MG BID. * Pneumonia vaccination - Resident family declined pneumonia vaccinations. * DVT prophylaxis - Heparin 5000 units SC BID. * Shortness of breath - Duoneb 3ML TID, Albuterol 2.5MG Q2H PRN. * Iron deficiency anemia - Ferrous Sulfate 325MG BID. * GERD - Lansoprazole 30MG daily. * E. Cloacae HCAP - Levaquin 500MG daily thru 04/11/2018. * Coronary Artery Disease - Metoprolol 12.5MG BID. * Thrush - Nystatin 100,000 4x/day thru 04/14/2018. * Dry Eyes - Artificial Tears 1GTT OU BID.
[2018-04-05] VITALS (7 sets, daily range): BP systolic 125–147; BP diastolic 60–75; PULSE 79–89; RESP 16–20; TEMP 36.1; O2SAT 95–98
--- NOTE | 2018-04-05 00:20 | NURSING ---
Code status discussed with family, family wishes for pt to be a full code.
--- NOTE | 2018-04-05 00:20 | NURSING ---
Family concerned about pt's delicate stomach. Family requesting pt be on IV Levaquin instead of GT. Dr Gustafson aware, N.O. entered.
[2018-04-05] MEDS: Menthol/Lanolin/Calamine/Znox 113 GM Tube 1 APPLIC TOPICAL ×2 (06:01→21:24)
[2018-04-05] MEDS: Docusate Sodium 100 MG/10 ML UDC GT ×2 (06:01→18:08)
[2018-04-05] MEDS: Ferrous Sulfate 300 MG/5 ML UDC 325 MG GT ×2 (06:01→18:08)
[2018-04-05] MEDS: Metoprolol Tartrate 25 MG Tablet 12.5 MG GT ×2 (06:04→18:09)
[2018-04-05] MEDS: NYSTATIN 500,000 UNIT/5 ML UDC 100000 UNIT PO ×4 (06:08→21:26)
[2018-04-05] MEDS: Heparin Injection (Vial) 5,000 UNIT/ML VIAL 5000 UNIT SC ×2 (06:09→18:09)
[2018-04-05 06:20] LABS: Absolute Lymphocyte Count 1.42 X10^3/ul (0.83-4.51); Absolute Neutrophil Count 2.2 X10^3/uL (2.0-7.7); Basophil# 0.01 X10^3/uL; Basophil% 0.2 % (0-1); Eosinophil# 0.42 X10^3/uL; Eosinophils% 9.4 % (0-5); Hemoglobin 9.8 g/dl (13.0-16.5); Lymphocyte # 1.42 X10^3/ul (4.0); Lymphocyte % 31.7 % (19-41); Mean Corp Hgb Conc 31.6 g/gl (32-36); Mean Corpuscular Hgb 28.9 pg (27.0-32.0); Mean Corpuscular Volume 91.4 fL (80-94); Mean Platelet Vol. 9.2 fl (6.2-12.0); Monocyte% 8.9 % (0-10); Neutrophil # 2.22 X10^3/uL (2.7-7.7); Neutrophil % 49.6 % (47-70); Platelet Count 193 K/mm3 (150-450); RBC Distribution Width CV 17.3 % (11.6-14.6); RBC Distribution Width SD 57.6 fl (35.1-43.9); Red Blood Count 3.39 M/mm3 (4.6-6.2); White Blood Count 4.5 K/mm3 (4.4-11.0)
[2018-04-05 06:24] LABS: POSITIVE COUNT NO; POSITIVE DIFFERENTIAL NO; POSITIVE MORPHOLOGY NO
[2018-04-05 06:35] LABS: Anion Gap 9 (5-15); BUN 17 mg/dL (7-18); BUN/Creat Ratio 13.9 RATIO (10-20); Calcium,Total 9.5 mg/dL (8.5-10.1); Chloride 108 mmol/L (98-107); Creatinine, Serum 1.22 mg/dL (0.70-1.30); EST Glomerular Filtration Rate 61 mL/min (>60); Est Glom Filt Rate - Afr Amer 74 mL/min (>60); Glucose 103 mg/dL (74-106); Potassium 3.7 mmol/L (3.5-5.1); Sodium Level 141 mmol/L (136-145)
[2018-04-05] MEDS: Ipratropium/Albuterol Sulfate 3 ML AMPUL.NEB INHALATION ×3 (07:12→20:04)
--- NOTE | 2018-04-05 09:29 | NURSING ---
in home tutor in to see family per their request regarding tube feed orders.
[2018-04-05] MEDS: 0.9% NaCl IVPB Med Flush (250 mL) 15 ML IV (09:42)
[2018-04-05] MEDS: levoFLOXacin IV 500 MG/100 ML BAG 100 MG IV (09:42)
[2018-04-05] MEDS: 0.9% NaCl Peripheral Flush Adult/Peds IV (09:42)
--- NOTE | 2018-04-05 09:49 | NURSING ---
Addendum entered by Tala Tran 04/05/18 13:31: Mauro, Respiratory therapist inserted valve, not speech. Original Note: speech inserted speaking valve this AM. family at bedside. Pt talking w/clear speech.
[2018-04-05] MEDS: Tuberculin,Purif.prot.deriv. 50 TU/ML Vial 5 ML ID (11:16)
--- NOTE | 2018-04-05 11:30 | NURSING ---
Addendum entered by Tala Tran 04/05/18 11:31: via trach collar. Original Note: Checked residual from tube feed, none noted. family remains at bedside. sat 96-99% on FIO2 28%
--- NOTE | 2018-04-05 15:05 | NURSING ---
Dr Styles notified per family request regarding tube feeds being increased if he felt that was ok per marine cargo surveyor recommendations. Stephani fine with it but pt may have vagal responses and may have to reduce rate again.
--- NOTE | 2018-04-05 15:28 | CPS ---
Placed on speaking valve at 1000. removed at 1515. Tolerated well. Family at bedside for duration of valve placement.
[2018-04-05] MEDS: Glycerin/Hypromellose/PEG400 15 ml Bottle 1 DRP EACH EYE (18:09)
--- NOTE | 2018-04-06 00:35 | NURSING ---
Pt's tube feed residual assessed at this time for 0 mL. Oxygen saturation 98% on FIO2 28%.
[2018-04-06] MEDS: Menthol/Lanolin/Calamine/Znox 113 GM Tube 1 APPLIC TOPICAL ×2 (05:39→21:34)
[2018-04-06] MEDS: Glycerin/Hypromellose/PEG400 15 ml Bottle 1 DRP EACH EYE ×2 (05:39→17:53)
[2018-04-06] MEDS: Docusate Sodium 100 MG/10 ML UDC GT ×2 (05:41→17:50)
[2018-04-06] MEDS: Ferrous Sulfate 300 MG/5 ML UDC 325 MG GT ×2 (05:41→17:51)
[2018-04-06] MEDS: Heparin Injection (Vial) 5,000 UNIT/ML VIAL 5000 UNIT SC ×2 (05:42→17:51)
[2018-04-06] MEDS: NYSTATIN 500,000 UNIT/5 ML UDC 100000 UNIT PO ×4 (05:42→21:32)
[2018-04-06 07:16] VITALS: PULSE 78; RESP 16; O2SAT 96
[2018-04-06] MEDS: Ipratropium/Albuterol Sulfate 3 ML AMPUL.NEB INHALATION ×2 (07:16→18:50)
[2018-04-06] MEDS: levoFLOXacin IV 500 MG/100 ML BAG 100 MG IV (09:33)
--- NOTE | 2018-04-06 10:38 | CPS ---
Suctioned for moderate amount of thick, yellow sputum. Placed on speaking valve. Tolerating well, family at bedside.
[2018-04-06 13:10] VITALS: PULSE 71; RESP 16
--- NOTE | 2018-04-06 15:25 | CPS ---
Spoke to Resident and Son about leaving speaking valve on until [id number] hours. Resident stated he is doing well and will let staff know of any problems,concerns.
[2018-04-06 15:29] VITALS: BP 121/69; PULSE 96; RESP 20; TEMP 36.3; O2SAT 99
[2018-04-06 17:51] VITALS: PULSE 100
[2018-04-06] MEDS: Metoprolol Tartrate 25 MG Tablet 12.5 MG GT (17:51)
[2018-04-06 18:50] VITALS: PULSE 82; RESP 16
[2018-04-07] VITALS (10 sets, daily range): BP systolic 112–128; BP diastolic 30–78; PULSE 71–101; RESP 16–22; TEMP 36; O2SAT 96–99
[2018-04-07] MEDS: Ferrous Sulfate 300 MG/5 ML UDC 325 MG GT ×2 (04:50→17:28)
[2018-04-07] MEDS: Metoprolol Tartrate 25 MG Tablet 12.5 MG GT ×2 (04:50→17:30)
[2018-04-07] MEDS: Heparin Injection (Vial) 5,000 UNIT/ML VIAL 5000 UNIT SC ×2 (04:51→17:30)
[2018-04-07] MEDS: Docusate Sodium 100 MG/10 ML UDC GT ×2 (04:51→17:29)
[2018-04-07] MEDS: Glycerin/Hypromellose/PEG400 15 ml Bottle 1 DRP EACH EYE ×2 (04:52→17:27)
[2018-04-07] MEDS: NYSTATIN 500,000 UNIT/5 ML UDC 100000 UNIT PO ×4 (04:52→20:33)
[2018-04-07] MEDS: Menthol/Lanolin/Calamine/Znox 113 GM Tube 1 APPLIC TOPICAL ×2 (05:23→20:34)
--- NOTE | 2018-04-07 07:34 | CPS ---
0707: Placed cap on trach, placed on nasal o2 @ 2 l/m. Explained changes to Resident, Son. Both verbalize understanding. Tolerating well.
[2018-04-07] MEDS: levoFLOXacin IV 500 MG/100 ML BAG 100 MG IV (09:56)
[2018-04-07] MEDS: 0.9% NaCl Peripheral Flush Adult/Peds IV (09:57)
[2018-04-07] MEDS: 0.9% NaCl IVPB Med Flush (250 mL) 15 ML IV (09:57)
[2018-04-07] MEDS: Ipratropium/Albuterol Sulfate 3 ML AMPUL.NEB INHALATION ×2 (12:50→18:37)
[2018-04-07] MEDS: Acetaminophen 650 MG/20 ML UDC GT (20:44)
[2018-04-08] VITALS (13 sets, daily range): BP systolic 114–129; BP diastolic 67–78; PULSE 73–88; RESP 16–18; TEMP 36; O2SAT 94–97
[2018-04-08] MEDS: Metoprolol Tartrate 25 MG Tablet 12.5 MG GT ×2 (05:00→16:45)
[2018-04-08] MEDS: Ferrous Sulfate 300 MG/5 ML UDC 325 MG GT ×2 (05:01→16:45)
[2018-04-08] MEDS: Heparin Injection (Vial) 5,000 UNIT/ML VIAL 5000 UNIT SC ×2 (05:03→16:45)
[2018-04-08] MEDS: Docusate Sodium 100 MG/10 ML UDC GT ×2 (05:03→16:45)
[2018-04-08] MEDS: Glycerin/Hypromellose/PEG400 15 ml Bottle 1 DRP EACH EYE ×2 (05:09→16:44)
[2018-04-08] MEDS: NYSTATIN 500,000 UNIT/5 ML UDC 100000 UNIT PO ×4 (05:09→21:09)
[2018-04-08] MEDS: Menthol/Lanolin/Calamine/Znox 113 GM Tube 1 APPLIC TOPICAL ×2 (05:09→21:19)
[2018-04-08] MEDS: Ipratropium/Albuterol Sulfate 3 ML AMPUL.NEB INHALATION ×3 (07:00→19:15)
[2018-04-08] MEDS: levoFLOXacin IV 500 MG/100 ML BAG 100 MG IV (10:03)
[2018-04-08 17:23] LABS: Absolute Lymphocyte Count 1.54 X10^3/ul (0.83-4.51); Absolute Neutrophil Count 2.1 X10^3/uL (2.0-7.7); Basophil# 0.02 X10^3/uL; Basophil% 0.5 % (0-1); Eosinophil# 0.37 X10^3/uL; Eosinophils% 8.5 % (0-5); Lymphocyte # 1.54 X10^3/ul (4.0); Lymphocyte % 35.5 % (19-41); Mean Corp Hgb Conc 31.3 g/gl (32-36); Mean Corpuscular Volume 92.8 fL (80-94); Mean Platelet Vol. 8.9 fl (6.2-12.0); Monocyte# 0.36 X10^3/uL; Monocyte% 8.3 % (0-10); Neutrophil # 2.05 X10^3/uL (2.7-7.7); Neutrophil % 47.2 % (47-70); POSITIVE COUNT NO; POSITIVE DIFFERENTIAL NO; POSITIVE MORPHOLOGY NO; Platelet Count 189 K/mm3 (150-450); RBC Distribution Width CV 16.9 % (11.6-14.6); RBC Distribution Width SD 57.5 fl (35.1-43.9); Red Blood Count 3.45 M/mm3 (4.6-6.2); White Blood Count 4.3 K/mm3 (4.4-11.0)
[2018-04-08 17:46] LABS: Anion Gap 7 (5-15); BUN 30 mg/dL (7-18); BUN/Creat Ratio 18.8 RATIO (10-20); Calcium,Total 10.2 mg/dL (8.5-10.1); Chloride 105 mmol/L (98-107); EST Glomerular Filtration Rate 45 mL/min (>60); Est Glom Filt Rate - Afr Amer 54 mL/min (>60); Estimated Creatinine Clearance 39.12 ml/min; Glucose 117 mg/dL (74-106); Potassium 4.3 mmol/L (3.5-5.1); Sodium Level 141 mmol/L (136-145)
[2018-04-08] MEDS: 0.9% Normal Saline 1,000 ML 50 ML IV (21:06)
--- NOTE | 2018-04-08 23:42 | NURSING ---
Addendum entered by Zohra Mesa 04/09/18 00:15: Family and patient aware of new order. Original Note: Family concerned that patient has aspirated. Patient has a dry cough. Patient currently on Levaquin IV. Dr. Gustafson notified of this, orders given to do chest xray in morning.
[2018-04-09] VITALS (10 sets, daily range): BP systolic 124–153; BP diastolic 61–98; PULSE 76–93; RESP 16–20; TEMP 36.8; O2SAT 92–99
[2018-04-09] MEDS: Albuterol 2.5 MG/3 ML VIAL.NEB. INHALATION (00:35)
[2018-04-09] MEDS: Heparin Injection (Vial) 5,000 UNIT/ML VIAL 5000 UNIT SC ×2 (04:55→16:17)
[2018-04-09] MEDS: Metoprolol Tartrate 25 MG Tablet 12.5 MG GT ×2 (04:55→16:17)
[2018-04-09] MEDS: Ferrous Sulfate 300 MG/5 ML UDC 325 MG GT ×2 (04:56→16:16)
[2018-04-09] MEDS: Docusate Sodium 100 MG/10 ML UDC GT ×2 (04:57→16:17)
--- NOTE | 2018-04-09 05:20 | RAD_ITS ---
HISTORY: Cough. Follow-up infiltrates Comparison 04/03/2018 Findings: Persistent bibasilar small infiltrates or atelectasis. Mild thickening of the right minor fissure. An approximately 8 mm nodule suggested within the right upper lobe above the minor fissure. Normal heart size. The pulmonary vascularity shows no overt congestion. No significant pleural effusion. Atherosclerotic thoracic aorta. Tracheostomy tube in place. RAD/Chest 1 View (Portable) IMPRESSION: 1. Bibasilar persistent small infiltrates or atelectasis. Recommend continued follow-up. 2. Right upper lobe nodule suggested. Consider further correlation with CT chest. 3. Tracheostomy tube in place. at 0559 Reported and signed by: Wolf Rubio MD Electronically Signed: Wolf Rubio, at 5:57 EST Tel , Service support ,
[2018-04-09] MEDS: Glycerin/Hypromellose/PEG400 15 ml Bottle 1 DRP EACH EYE ×2 (05:31→16:17)
[2018-04-09] MEDS: NYSTATIN 500,000 UNIT/5 ML UDC 100000 UNIT PO ×4 (05:32→21:09)
[2018-04-09] MEDS: Menthol/Lanolin/Calamine/Znox 113 GM Tube 1 APPLIC TOPICAL ×2 (05:33→21:12)
[2018-04-09] MEDS: Ipratropium/Albuterol Sulfate 3 ML AMPUL.NEB INHALATION ×3 (06:50→19:50)
[2018-04-09 07:13] LABS: Anion Gap 6 (5-15); BUN 30 mg/dL (7-18); Chloride 106 mmol/L (98-107); Creatinine, Serum 1.58 mg/dL (0.70-1.30); EST Glomerular Filtration Rate 45 mL/min (>60); Est Glom Filt Rate - Afr Amer 55 mL/min (>60); Estimated Creatinine Clearance 39.61 ml/min; Glucose 104 mg/dL (74-106); Potassium 3.8 mmol/L (3.5-5.1); Sodium Level 140 mmol/L (136-145)
[2018-04-09] MEDS: levoFLOXacin IV 500 MG/100 ML BAG 100 MG IV (11:10)
[2018-04-09] MEDS: 0.9% Normal Saline 1,000 ML 50 ML IV (16:15)
[2018-04-09 21:28] LABS: Bacteria 0 SEEN /hpf (None Seen); Mucous, Urine 0 SEEN /hpf (<or=2+); Squamous Epithelial Cells - UA 0 SEEN /hpf (0-5)
[2018-04-09 21:43] LABS: Color, Urine Yellow (Yellow); Glucose, Dipstick Normal (Normal); Ketone-Dipstick Negative (Negative); Leukocyte Esterase-Dipstick 25 /ul (Negative); Nitrite-Dipstick Negative (Negative); Occult Blood-Urine 25 /ul (Negative); Protein-Dipstick 15 mg/dl (Negative); Specific Gravity, Urine 1.015 (1.002-1.030); Urine Bilirubin Dipstick Negative (Negative); Urine Clarity Clear (Clear); Urine Urobilinogen Normal (Normal); Urine pH 6.5 (5.0 - 8.0)
[2018-04-09 22:01] LABS: Calcium Oxalate Crystals Ur 1+ /hpf (<or=2+); Red Blood Cells-Urine 0-5 SEEN /hpf (0-5); White Blood Cells 0-5 SEEN /hpf (0-5)
[2018-04-10] VITALS (7 sets, daily range): BP systolic 112–133; BP diastolic 69–72; PULSE 85–92; RESP 16–20; TEMP 36.4; O2SAT 95–99
[2018-04-10] MEDS: Ferrous Sulfate 300 MG/5 ML UDC 325 MG GT ×2 (05:02→17:11)
[2018-04-10] MEDS: Docusate Sodium 100 MG/10 ML UDC GT ×2 (05:02→17:11)
[2018-04-10] MEDS: NYSTATIN 500,000 UNIT/5 ML UDC 100000 UNIT PO ×4 (05:03→19:55)
[2018-04-10] MEDS: Metoprolol Tartrate 25 MG Tablet 12.5 MG GT ×2 (05:03→17:27)
[2018-04-10] MEDS: Heparin Injection (Vial) 5,000 UNIT/ML VIAL 5000 UNIT SC ×2 (05:03→17:13)
[2018-04-10] MEDS: Glycerin/Hypromellose/PEG400 15 ml Bottle 1 DRP EACH EYE ×2 (05:19→17:10)
[2018-04-10] MEDS: Menthol/Lanolin/Calamine/Znox 113 GM Tube 1 APPLIC TOPICAL ×2 (05:20→19:56)
[2018-04-10] MEDS: Ipratropium/Albuterol Sulfate 3 ML AMPUL.NEB INHALATION ×3 (06:30→19:45)
[2018-04-10] MEDS: levoFLOXacin IV 500 MG/100 ML BAG 100 MG IV (11:16)
--- NOTE | 2018-04-10 13:02 | PHA.CONS_ITS ---
<Rick Zuniga D - Last Filed: 04/10/18 12:37> Progress Note - Pharmacy Subjective: TCU Admission Objective: Allergies famotidine [From Pepcid] Adverse Reaction (Verified 04/01/18 03:17) Low blood pressure metoclopramide [From Reglan] Adverse Reaction (Verified 04/01/18 03:17) Other Current Medications Generic Name Dose Route Start Last Admin Trade Name Freq PRN Reason Stop Dose Admin Acetaminophen 650 mg 04/04/18 20:00 04/07/18 20:44 Tylenol Liquid GT 325 mg Q4H PRN PRN Administration MILD PAIN (-08/13) Albuterol Sulfate 2.5 mg 04/04/18 13:38 04/09/18 00:35 Ventolin Aerosols INHALATION 2.5 mg Q2H PRN PRN Administration SHORTNESS OF BREATH Albuterol/Ipratropium 3 ml 04/05/18 06:00 04/10/18 06:30 Duoneb INHALATION 3 ml TID.RT AMBIKA Administration Calamine/Phenol 1 applic 04/05/18 06:00 04/10/18 05:20 Calmoseptine Ointment TOPICAL 1 applicatio 0600,2200 AMBIKA Administration Protocol Docusate Sodium 100 mg 04/04/18 18:00 04/10/18 05:02 Colace Syrup GT 100 mg BID AMBIKA Administration Ferrous Sulfate 325 mg 04/04/18 18:00 04/10/18 05:02 Ferrous Sulfate Syrup GT 325 mg BID AMBIKA Administration Heparin Sodium (Porcine) 5,000 unit 04/04/18 18:00 04/10/18 05:03 Heparin Na SC 5,000 unit BID AMBIKA Administration Levofloxacin 500 mg in 100 mls @ 100 mls/hr 04/05/18 10:00 04/10/18 11:16 Levaquin Iv IV 04/16/18 23:59 100 mls/hr Q24 AMBIKA Administration Sodium Chloride 250 mls @ 15 mls/hr 04/05/18 02:30 04/07/18 09:57 IV 15 mls/hr .[id number] PRN Administration SALINE FLUSH Sodium Chloride 1,000 mls @ 50 mls/hr 04/08/18 19:55 04/09/18 16:15 IV 50 mls/hr .Q20H AMBIKA Administration Lansoprazole 30 mg 04/05/18 06:00 04/10/18 05:01 Prevacid GT 30 mg DAILY AMBIKA Administration Metoprolol Tartrate 12.5 mg 04/04/18 18:00 04/10/18 05:03 Lopressor (Beta Dillon) GT 12.5 mg BID AMBIKA Administration Non-Formulary Medication 30 ml 04/05/18 11:30 04/09/18 18:18 Twocal Hn Liquid GT 30 ml DAILY AMBIKA Administration Nystatin 100,000 unit 04/04/18 17:00 04/10/18 11:35 Nystatin PO 04/14/18 23:59 100,000 unit 4X/DAY AMBIKA Administration Sodium Chloride 5 - 30 ml 04/05/18 02:30 04/07/18 09:57 IV 10 ml UD PRN Administration SALINE FLUSH Problem List Change in mental status (Acute) Vasovagal syndrome (Chronic) Aspiration pneumonia (Acute) Coronary artery disease (Chronic) Vital Signs Temp Pulse Resp BP Pulse Ox 98.2 F 89 20 H 133/72 H 96 04/09/18 16:00 04/10/18 06:30 04/10/18 06:30 04/10/18 05:03 04/10/18 06:30 Oxygen Flow Rate (L/min) 2 Oxygen Delivery Method Room Air Weight: 72.68 kg Body Mass Index (BMI) 23.0 Sodium 140 mmol/L (136-145) 04/09/18 06:20 Potassium 3.8 mmol/L (3.5-5.1) 04/09/18 06:20 Chloride 106 mmol/L (98-107) 04/09/18 06:20 Carbon Dioxide 28.0 mmol/L (21.0-32.0) 04/09/18 06:20 Anion Gap 6 (5-15) 04/09/18 06:20 BUN 30 mg/dL (7-18) H 04/09/18 06:20 Creatinine 1.58 mg/dL (0.70-1.30) H 04/09/18 06:20 Est GFR (MDRD) Af Amer 55 mL/min (>60) L 04/09/18 06:20 Est GFR (MDRD) Non-Af 45 mL/min (>60) L 04/09/18 06:20 BUN/Creatinine Ratio 19.0 RATIO (10-20) 04/09/18 06:20 Glucose 104 mg/dL (74-106) 04/09/18 06:20 Assessment/Plan: 1) Pain APAP for mild pain. Continue to monitor daily pain scores, prn medication use. 2) ID Levofloxacin daily until 04/16, nystatin orally until 04/14. Continue to monitor s/s infection. 3) Pulm Duoneb inh 3x daily, albuterol prn. Continue to monitor prn aerosol use, for shortness of breath. 4) HTN Metoprolol bid. Continue to monitor BP/HR. 5) GI Lansoprazole daily. Continue to monitor s/s GI distress. 6) Nutrition Fe, Twocal HN liq. Continue to monitor clinically. 7) DVT PPx Heparin twice daily. Continue to monitor s/s bleeding/clot. Psychotropic Medications: None Unnecessary Medications: None Bowel Regimen: 8) Docusate twice daily. Continue to monitor for constipation/diarrhea. Date of Note:: 04/10/18 - Provider Comments Provider responsibility: Provider responsible to enter orders to implement recommendations <Jh Gustafson Chi - Last Filed: 04/10/18 17:12> Progress Note - Pharmacy Subjective: [] Objective: Allergies famotidine [From Pepcid] Adverse Reaction (Verified 04/01/18 03:17) Low blood pressure metoclopramide [From Reglan] Adverse Reaction (Verified 04/01/18 03:17) Other Current Medications Generic Name Dose Route Start Last Admin Trade Name Freq PRN Reason Stop Dose Admin Acetaminophen 650 mg 04/04/18 20:00 04/07/18 20:44 Tylenol Liquid GT 325 mg Q4H PRN PRN Administration MILD PAIN (1-3/10) Albuterol Sulfate 2.5 mg 04/04/18 13:38 04/09/18 00:35 Ventolin Aerosols INHALATION 2.5 mg Q2H PRN PRN Administration SHORTNESS OF BREATH Albuterol/Ipratropium 3 ml 04/05/18 06:00 04/10/18 13:00 Duoneb INHALATION 3 ml TID.RT AMBIKA Administration Calamine/Phenol 1 applic 04/05/18 06:00 04/10/18 05:20 Calmoseptine Ointment TOPICAL 1 applicatio 0600,2200 [facility] Administration Protocol Docusate Sodium 100 mg 04/04/18 18:00 11/05/18 05:02 Colace Syrup GT 100 mg BID AMBIKA Administration Ferrous Sulfate 325 mg 04/04/18 18:00 04/10/18 05:02 Ferrous Sulfate Syrup GT 325 mg BID AMBIKA Administration Heparin Sodium (Porcine) 5,000 unit 04/04/18 18:00 04/10/18 05:03 Heparin Na SC 5,000 unit BID AMBIKA Administration Levofloxacin 500 mg in 100 mls @ 100 mls/hr 04/05/18 10:00 04/10/18 11:16 Levaquin Iv IV 04/16/18 23:59 100 mls/hr Q24 AMBIKA Administration Sodium Chloride 250 mls @ 15 mls/hr 04/05/18 02:30 04/07/18 09:57 IV 15 mls/hr .[id number] PRN Administration SALINE FLUSH Sodium Chloride 1,000 mls @ 50 mls/hr 04/08/18 19:55 04/10/18 13:28 IV 50 mls/hr .Q20H AMBIKA Administration Lansoprazole 30 mg 04/05/18 06:00 04/10/18 05:01 Prevacid GT 30 mg DAILY AMBIKA Administration Metoprolol Tartrate 12.5 mg 04/04/18 18:00 04/10/18 05:03 Lopressor (Beta Dillon) GT 12.5 mg BID AMBIKA Administration Non-Formulary Medication 30 ml 04/05/18 11:30 04/09/18 18:18 Twocal Hn Liquid GT 30 ml DAILY AMBIKA Administration Nystatin 100,000 unit 04/04/18 17:00 04/10/18 11:35 Nystatin PO 04/14/18 23:59 100,000 unit 4X/DAY AMBIKA Administration Sodium Chloride 5 - 30 ml 04/05/18 02:30 04/07/18 09:57 IV 10 ml UD PRN Administration SALINE FLUSH Problem List Change in mental status (Acute) Vasovagal syndrome (Chronic) Aspiration pneumonia (Acute) Coronary artery disease (Chronic) Vital Signs Temp Pulse Resp BP Pulse Ox 97.5 F L 91 18 112/69 99 04/10/18 15:19 04/10/18 15:19 04/10/18 15:19 04/10/18 15:19 04/10/18 15:19 Oxygen Flow Rate (L/min) 2 Oxygen Delivery Method Room Air Weight: 72.68 kg Body Mass Index (BMI) 23.0 Sodium 140 mmol/L (136-145) 04/09/18 06:20 Potassium 3.8 mmol/L (3.5-5.1) 04/09/18 06:20 Chloride 106 mmol/L (98-107) 04/09/18 06:20 Carbon Dioxide 28.0 mmol/L (21.0-32.0) 04/09/18 06:20 Anion Gap 6 (5-15) 04/09/18 06:20 BUN 30 mg/dL (7-18) H 04/09/18 06:20 Creatinine 1.58 mg/dL (0.70-1.30) H 04/09/18 06:20 Est GFR (MDRD) Af Amer 55 mL/min (>60) L 04/09/18 06:20 Est GFR (MDRD) Non-Af 45 mL/min (>60) L 04/09/18 06:20 BUN/Creatinine Ratio 19.0 RATIO (10-20) 04/09/18 06:20 Glucose 104 mg/dL (74-106) 04/09/18 06:20 Assessment/Plan: Psychotropic Medications: Unnecessary Medications: Bowel Regimen: - Provider Comments Provider responsibility: Provider responsible to enter orders to implement recommendations Provider Comments to Recommendations by Pharmacy: Agree
[2018-04-10] MEDS: 0.9% Normal Saline 1,000 ML 50 ML IV (13:28)
--- NOTE | 2018-04-10 15:09 | NURSING ---
Addendum entered by Alisia Pittman 04/10/18 15:17: recommended to leave SCD's off for awhile, there are spots on top of left foot looking like small broken blood vessels, no pain with either areas, therapy did have pt up to recliner today for the first time, will continue to monitor Original Note: Pts son made this nurse aware of redness to lower R extremities, perhaps from SCD's,
[2018-04-10] MEDS: Acetaminophen 650 MG/20 ML UDC GT (19:56)
--- NOTE | 2018-04-10 22:00 | NURSING ---
Addendum entered by Hailey Alexandra 04/11/18 05:49: Zero residual at 0000 and 0500 Original Note: Family agreeable, tube feed increased to 30ml/hr.
[2018-04-11] VITALS (8 sets, daily range): BP systolic 101–118; BP diastolic 59–61; PULSE 78–96; RESP 17–24; TEMP 36–36.1; O2SAT 94–98
[2018-04-11] MEDS: Acetaminophen 650 MG/20 ML UDC GT (01:09)
[2018-04-11] MEDS: Metoprolol Tartrate 25 MG Tablet 12.5 MG GT ×2 (05:31→17:15)
[2018-04-11] MEDS: 0.9% Normal Saline 1,000 ML 50 ML IV (05:31)
[2018-04-11] MEDS: Heparin Injection (Vial) 5,000 UNIT/ML VIAL 5000 UNIT SC ×2 (05:31→17:12)
[2018-04-11] MEDS: Menthol/Lanolin/Calamine/Znox 113 GM Tube 1 APPLIC TOPICAL ×2 (05:31→20:26)
[2018-04-11] MEDS: Glycerin/Hypromellose/PEG400 15 ml Bottle 1 DRP EACH EYE ×2 (05:31→17:09)
[2018-04-11] MEDS: NYSTATIN 500,000 UNIT/5 ML UDC 100000 UNIT PO ×4 (05:31→20:24)
[2018-04-11] MEDS: Docusate Sodium 100 MG/10 ML UDC GT ×2 (05:31→17:14)
[2018-04-11] MEDS: Ferrous Sulfate 300 MG/5 ML UDC 325 MG GT ×2 (05:31→17:14)
[2018-04-11] MEDS: Ipratropium/Albuterol Sulfate 3 ML AMPUL.NEB INHALATION ×3 (07:30→19:45)
--- NOTE | 2018-04-11 08:55 | NURSING ---
Addendum entered by Rebecca Robles 04/11/18 11:16: Family and patient asking about xray to Thumb and Lt hand. State pain is actually more in the wrist area. Resident points to pain and points to Lt wrist. Able to move Lt thumb without pain. Original Note: pt family requesting xray of lt thumb d/t pain since pt doing more therapy. new order for hand and thumb xray
[2018-04-11] MEDS: levoFLOXacin IV 500 MG/100 ML BAG 100 MG IV (10:59)
--- NOTE | 2018-04-11 11:24 | RAD_ITS ---
STUDY: X-RAY - LEFT WRIST REASON FOR EXAM: Male, 78 years old. Left wrist pain x2 days TECHNIQUE: 2 view(s) of the wrist were obtained. COMPARISON: None. FINDINGS: Normal visualized distal radius and ulna. Normal radiocarpal articulation. Normal distal radioulnar articulation. Normal carpal bones. There are degenerative changes of the greater multangular navicular joint. Normal carpometacarpal articulation of the thumb. Normal second through fifth carpometacarpal articulations. Normal visualized metacarpal bones. There is a small soft tissue calcification anterior to the distal radial metaphysis. RAD/Wrist 2 Views IMPRESSION: Degenerative changes of the greater multangular navicular joint. Electronically Signed: Win Ramos MD at 15:47 EST , Service support ,
--- NOTE | 2018-04-11 15:55 | MDS.RN ---
staff/observation pain assessment completed.
--- NOTE | 2018-04-11 16:32 | CASEMGMT ---
Brief interview for mental status (BIMS) and resident mood interview (PHQ-9) completed on this day. BIMS score 01/18. PHQ-9 score
--- NOTE | 2018-04-11 21:48 | RAD_ITS ---
STUDY: X-RAY - ABDOMEN/PELVIS REASON FOR EXAM: Male, 78 years old. Unresponsive episodes TECHNIQUE: Two AP supine views of the abdomen and pelvis. COMPARISON: Previous study of 03/31/2018 FINDINGS: Normal visualized lung bases. There is an unremarkable bowel gas pattern. There is no demonstrated free abdominal air. A PEG tube is noted. There are numerous surgical clips in the left abdomen and pelvis. There are degenerative changes of the lumbar spine with a mild lumbar levoscoliosis. RAD/Abdomen Single View IMPRESSION: There is no evidence of ileus or obstruction. A PEG tube is noted. There are numerous surgical clips in the left abdomen and pelvis. Electronically Signed: Win Ramos MD at 22:35 EST , Service support ,
--- NOTE | 2018-04-11 21:55 | NURSING ---
Addendum entered by Hailey Alexandra 04/12/18 08:14: Dr Gustafson aware of results. N.N.O. Dr Gustafson aware family feels patient is more agitated this AM and confusion continued N.N.O. Original Note: Family concern with pt's cognition. Family reporting patient more confused tonight. Pt AOx1 to self. 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 Vitals obtained. Lungs noted to be clear. I.S. provided and encouraged. Dr Gustafson updated. N.O. entered.
--- NOTE | 2018-04-11 22:00 | RAD_ITS ---
STUDY: X-RAY CHEST REASON FOR EXAM: Male, 78 years old. Unresponsive episodes TECHNIQUE: AP and lateral views of the chest. COMPARISON: Previous study of April 09, 2018 FINDINGS: A tracheostomy is present appearing in adequate position. The lungs are clear and expanded. There is no demonstrated pleural abnormality. Normal size heart. Normal mediastinum and maximilian. Normal visualized pulmonary arteries. There are calcified plaques of the aortic arch. Normal visualized thoracic spine. An intramedullary jerry is seen in the visualized left humerus. There is no demonstrated abnormality of the visualized soft tissue structures of the upper abdomen. RAD/Chest PA and Lateral IMPRESSION: Tracheostomy present appearing in adequate position. Calcified plaques of the aortic arch. Intramedullary jerry seen in the proximal left humerus. No acute cardiopulmonary disease process is seen. Electronically Signed: Win Ramos MD at 22:18 EST , Service support ,
[2018-04-11 22:28] LABS: Absolute Lymphocyte Count 1.51 X10^3/ul (0.83-4.51); Absolute Neutrophil Count 2.7 X10^3/uL (2.0-7.7); Basophil# 0.01 X10^3/uL; Basophil% 0.2 % (0-1); Eosinophil# 0.29 X10^3/uL; Eosinophils% 5.9 % (0-5); Hematocrit 30.6 % (40-54); Hemoglobin 9.9 g/dl (13.0-16.5); Lymphocyte # 1.51 X10^3/ul (4.0); Lymphocyte % 30.9 % (19-41); Mean Corp Hgb Conc 32.4 g/gl (32-36); Mean Corpuscular Volume 92.7 fL (80-94); Mean Platelet Vol. 9.2 fl (6.2-12.0); Monocyte# 0.42 X10^3/uL; Monocyte% 8.6 % (0-10); Neutrophil # 2.65 X10^3/uL (2.7-7.7); Neutrophil % 54.2 % (47-70); POSITIVE COUNT NO; POSITIVE DIFFERENTIAL NO; POSITIVE MORPHOLOGY NO; Platelet Count 188 K/mm3 (150-450); RBC Distribution Width CV 16.6 % (11.6-14.6); RBC Distribution Width SD 54.4 fl (35.1-43.9); White Blood Count 4.9 K/mm3 (4.4-11.0)
[2018-04-11 22:43] LABS: Anion Gap 7 (5-15); BUN 29 mg/dL (7-18); BUN/Creat Ratio 19.6 RATIO (10-20); Calcium,Total 9.9 mg/dL (8.5-10.1); Chloride 107 mmol/L (98-107); Creatinine, Serum 1.48 mg/dL (0.70-1.30); EST Glomerular Filtration Rate 49 mL/min (>60); Est Glom Filt Rate - Afr Amer 59 mL/min (>60); Glucose 103 mg/dL (74-106); Potassium 3.8 mmol/L (3.5-5.1); Sodium Level 142 mmol/L (136-145)
--- NOTE | 2018-04-12 01:50 | CASEMGMT ---
Plan of care meeting held. Resident present as well as resident family. No discharge date set at this time. Resident to continue with further care and Treatment on the Transitional Care Unit at this time. Resident plans to discharge to home with spouse at time of discharge. Resident and resident family aware that resident is requiring a lot of assist at this time, resident currently making progress with therapy goals. Support given. Will continue to follow. ARNULFO CavanaughW, [employer] SPECIAL EDUCATION TEACHER
[2018-04-12] MEDS: 0.9% Normal Saline 1,000 ML 50 ML IV (04:22)
[2018-04-12 04:56] LABS: Bacteria 0 SEEN /hpf (None Seen); Mucous, Urine 0 SEEN /hpf (<or=2+); Red Blood Cells-Urine 0 SEEN /hpf (0-5); Squamous Epithelial Cells - UA 0 SEEN /hpf (0-5); White Blood Cells 0 SEEN /hpf (0-5)
[2018-04-12 05:03] LABS: Color, Urine Yellow (Yellow); Glucose, Dipstick Normal (Normal); Ketone-Dipstick Negative (Negative); Leukocyte Esterase-Dipstick Negative /ul (Negative); Nitrite-Dipstick Negative (Negative); Occult Blood-Urine Negative /ul (Negative); Protein-Dipstick 15 mg/dl (Negative); Specific Gravity, Urine 1.015 (1.002-1.030); Urine Bilirubin Dipstick Negative (Negative); Urine Clarity Clear (Clear); Urine Urobilinogen Normal (Normal)
[2018-04-12] MEDS: Acetaminophen 650 MG/20 ML UDC GT (05:06)
[2018-04-12] MEDS: NYSTATIN 500,000 UNIT/5 ML UDC 100000 UNIT PO ×4 (05:10→20:40)
[2018-04-12 05:11] VITALS: BP 114/60; PULSE 85
[2018-04-12] MEDS: Heparin Injection (Vial) 5,000 UNIT/ML VIAL 5000 UNIT SC ×2 (05:11→17:09)
[2018-04-12] MEDS: Ferrous Sulfate 300 MG/5 ML UDC 325 MG GT ×2 (05:11→17:08)
[2018-04-12] MEDS: Metoprolol Tartrate 25 MG Tablet 12.5 MG GT ×2 (05:11→17:08)
[2018-04-12] MEDS: Glycerin/Hypromellose/PEG400 15 ml Bottle 1 DRP EACH EYE ×2 (05:12→17:07)
[2018-04-12] MEDS: Menthol/Lanolin/Calamine/Znox 113 GM Tube 1 APPLIC TOPICAL ×2 (05:12→20:46)
[2018-04-12] MEDS: Docusate Sodium 100 MG/10 ML UDC GT ×2 (05:12→17:08)
[2018-04-12 06:48] VITALS: PULSE 74; RESP 20; O2SAT 94
[2018-04-12] MEDS: levoFLOXacin IV 500 MG/100 ML BAG 100 MG IV (10:08)
[2018-04-12] MEDS: 0.9% NaCl IVPB Med Flush (250 mL) 15 ML IV (10:08)
[2018-04-12] MEDS: 0.9% NaCl Peripheral Flush Adult/Peds IV (10:12)
[2018-04-12 13:07] VITALS: PULSE 83; RESP 20
[2018-04-12 16:00] VITALS: BP 120/68; PULSE 67; RESP 20; TEMP 36.6; O2SAT 94
[2018-04-12] MEDS: Nystatin/Triamcin Cream Tube 1 APPLIC TOPICAL (17:06)
[2018-04-12 17:08] VITALS: PULSE 67
[2018-04-12 19:15] VITALS: PULSE 85; RESP 18
[2018-04-12] MEDS: Ipratropium/Albuterol Sulfate 3 ML AMPUL.NEB INHALATION (19:15)
[2018-04-13] MEDS: 0.9% Normal Saline 1,000 ML 50 ML IV ×2 (00:37→21:00)
[2018-04-13 06:18] VITALS: BP 109/61; PULSE 92; RESP 18; TEMP 36.4; O2SAT 99
[2018-04-13] MEDS: Glycerin/Hypromellose/PEG400 15 ml Bottle 1 DRP EACH EYE ×2 (06:21→18:09)
[2018-04-13] MEDS: Heparin Injection (Vial) 5,000 UNIT/ML VIAL 5000 UNIT SC ×2 (06:22→18:12)
[2018-04-13] MEDS: Docusate Sodium 100 MG/10 ML UDC GT ×2 (06:22→18:12)
[2018-04-13] MEDS: NYSTATIN 500,000 UNIT/5 ML UDC 100000 UNIT PO ×4 (06:22→20:40)
[2018-04-13] MEDS: Ferrous Sulfate 300 MG/5 ML UDC 325 MG GT ×2 (06:22→18:12)
[2018-04-13 06:23] VITALS: BP 109/61; PULSE 92
[2018-04-13] MEDS: Metoprolol Tartrate 25 MG Tablet 12.5 MG GT ×2 (06:23→18:13)
[2018-04-13] MEDS: Menthol/Lanolin/Calamine/Znox 113 GM Tube 1 APPLIC TOPICAL ×2 (06:23→20:40)
[2018-04-13] MEDS: Nystatin/Triamcin Cream Tube 1 APPLIC TOPICAL ×2 (06:24→18:27)
[2018-04-13 06:50] VITALS: PULSE 80; RESP 18
[2018-04-13] MEDS: Ipratropium/Albuterol Sulfate 3 ML AMPUL.NEB INHALATION ×2 (06:50→13:05)
[2018-04-13] MEDS: levoFLOXacin IV 500 MG/100 ML BAG 100 MG IV (11:35)
[2018-04-13 13:05] VITALS: PULSE 99; RESP 18
[2018-04-13 16:00] VITALS: BP 104/64; PULSE 92; RESP 20; TEMP 36.4; O2SAT 97
[2018-04-13 18:13] VITALS: BP 104/64; PULSE 92
--- NOTE | 2018-04-13 18:32 | NURSING ---
Pt trach has been capped all shift, no distress noted, pt tolerating well.
[2018-04-14] MEDS: NYSTATIN 500,000 UNIT/5 ML UDC 100000 UNIT PO ×4 (05:38→20:46)
[2018-04-14] MEDS: Ferrous Sulfate 300 MG/5 ML UDC 325 MG GT ×2 (05:39→17:35)
[2018-04-14] MEDS: Docusate Sodium 100 MG/10 ML UDC GT ×2 (05:39→17:35)
[2018-04-14 05:40] VITALS: BP 115/67; PULSE 88
[2018-04-14] MEDS: Metoprolol Tartrate 25 MG Tablet 12.5 MG GT ×2 (05:40→17:36)
[2018-04-14] MEDS: Glycerin/Hypromellose/PEG400 15 ml Bottle 1 DRP EACH EYE ×2 (05:46→17:30)
[2018-04-14] MEDS: Menthol/Lanolin/Calamine/Znox 113 GM Tube 1 APPLIC TOPICAL ×2 (05:47→20:44)
[2018-04-14] MEDS: Heparin Injection (Vial) 5,000 UNIT/ML VIAL 5000 UNIT SC ×2 (05:48→17:57)
[2018-04-14] MEDS: Nystatin/Triamcin Cream Tube 1 APPLIC TOPICAL ×2 (05:49→17:31)
--- NOTE | 2018-04-14 06:20 | NURSING ---
Trach capped all shift, pt tolerated well. No distressed noted. Will continue to monitor.
[2018-04-14 06:28] VITALS: PULSE 78; RESP 18; O2SAT 96
[2018-04-14] MEDS: Ipratropium/Albuterol Sulfate 3 ML AMPUL.NEB INHALATION ×2 (06:28→12:53)
[2018-04-14] MEDS: levoFLOXacin IV 500 MG/100 ML BAG 100 MG IV (12:08)
[2018-04-14 12:53] VITALS: PULSE 81; RESP 18
[2018-04-14 16:00] VITALS: BP 117/68; PULSE 90; RESP 20; TEMP 35.9; O2SAT 97
[2018-04-14 17:36] VITALS: BP 117/68; PULSE 90
[2018-04-14] MEDS: 0.9% Normal Saline 1,000 ML 50 ML IV (17:55)
--- NOTE | 2018-04-14 19:38 | NURSING ---
pt trach has been capped all day, no resp distress.
[2018-04-14 20:50] VITALS: PULSE 83; RESP 18
[2018-04-15] VITALS (7 sets, daily range): BP systolic 106–131; BP diastolic 59–67; PULSE 75–90; RESP 18–20; TEMP 36.6; O2SAT 93–98
[2018-04-15] MEDS: Metoprolol Tartrate 25 MG Tablet 12.5 MG GT ×2 (05:15→17:56)
[2018-04-15] MEDS: Ferrous Sulfate 300 MG/5 ML UDC 325 MG GT ×2 (05:17→17:58)
[2018-04-15] MEDS: Docusate Sodium 100 MG/10 ML UDC GT ×2 (05:17→17:58)
[2018-04-15] MEDS: Glycerin/Hypromellose/PEG400 15 ml Bottle 1 DRP EACH EYE ×2 (05:18→17:55)
[2018-04-15] MEDS: Heparin Injection (Vial) 5,000 UNIT/ML VIAL 5000 UNIT SC ×2 (05:31→18:14)
[2018-04-15] MEDS: Nystatin/Triamcin Cream Tube 1 APPLIC TOPICAL ×2 (05:31→17:55)
[2018-04-15] MEDS: Menthol/Lanolin/Calamine/Znox 113 GM Tube 1 APPLIC TOPICAL ×2 (05:32→21:27)
[2018-04-15] MEDS: Ipratropium/Albuterol Sulfate 3 ML AMPUL.NEB INHALATION ×3 (07:02→18:45)
[2018-04-15] MEDS: levoFLOXacin IV 500 MG/100 ML BAG 100 MG IV (10:07)
[2018-04-15 14:21] LABS: Absolute Lymphocyte Count 1.63 X10^3/ul (0.83-4.51); Absolute Neutrophil Count 2.2 X10^3/uL (2.0-7.7); Basophil# 0.02 X10^3/uL; Basophil% 0.4 % (0-1); Eosinophil# 0.28 X10^3/uL; Eosinophils% 6.3 % (0-5); Hematocrit 30.2 % (40-54); Hemoglobin 9.8 g/dl (13.0-16.5); Lymphocyte # 1.63 X10^3/ul (4.0); Lymphocyte % 36.4 % (19-41); Mean Corp Hgb Conc 32.5 g/gl (32-36); Mean Corpuscular Hgb 30.2 pg (27.0-32.0); Mean Corpuscular Volume 92.9 fL (80-94); Mean Platelet Vol. 9.2 fl (6.2-12.0); Monocyte# 0.31 X10^3/uL; Monocyte% 6.9 % (0-10); Neutrophil # 2.23 X10^3/uL (2.7-7.7); Neutrophil % 49.8 % (47-70); Platelet Count 183 K/mm3 (150-450); RBC Distribution Width CV 16.4 % (11.6-14.6); RBC Distribution Width SD 53.6 fl (35.1-43.9); Red Blood Count 3.25 M/mm3 (4.6-6.2); White Blood Count 4.5 K/mm3 (4.4-11.0)
[2018-04-15 14:29] LABS: Partial Thromboplast Time 41.1 Seconds (24.1-36.2)
[2018-04-15 14:37] LABS: ALB/GLOB Ratio 0.5 RATIO (0.9-2.4); AST(SGOT) 17 U/L (15-37); Alanine Aminotransfer ALT/SGPT 15 U/L (16-61); Albumin, Serum 2.5 g/dL (3.2-5.0); Alkaline Phosphatase 118 U/L (45-117); Anion Gap 6 (5-15); BUN 27 mg/dL (7-18); BUN/Creat Ratio 21.4 RATIO (10-20); Calcium,Total 9.6 mg/dL (8.5-10.1); Chloride 106 mmol/L (98-107); Creatinine, Serum 1.26 mg/dL (0.70-1.30); EST Glomerular Filtration Rate 59 mL/min (>60); Est Glom Filt Rate - Afr Amer 71 mL/min (>60); Globulin 4.6 g/dL (2.2-4.2); Glucose 111 mg/dL (74-106); Protein, Total 7.1 g/dL (6.4-8.2); Sodium Level 140 mmol/L (136-145)
[2018-04-15 14:39] LABS: POSITIVE COUNT NO; POSITIVE DIFFERENTIAL NO; POSITIVE MORPHOLOGY NO
[2018-04-15] MEDS: 0.9% Normal Saline 1,000 ML 50 ML IV (15:37)
[2018-04-16] MEDS: Glycerin/Hypromellose/PEG400 15 ml Bottle 1 DRP EACH EYE ×2 (06:29→17:25)
[2018-04-16] MEDS: Ferrous Sulfate 300 MG/5 ML UDC 325 MG GT ×2 (06:29→17:25)
[2018-04-16 06:30] VITALS: BP 126/83; PULSE 93
[2018-04-16] MEDS: Metoprolol Tartrate 25 MG Tablet 12.5 MG GT ×2 (06:30→17:25)
[2018-04-16] MEDS: Docusate Sodium 100 MG/10 ML UDC GT ×2 (06:30→17:25)
[2018-04-16] MEDS: Heparin Injection (Vial) 5,000 UNIT/ML VIAL 5000 UNIT SC ×2 (06:31→17:29)
[2018-04-16] MEDS: Menthol/Lanolin/Calamine/Znox 113 GM Tube 1 APPLIC TOPICAL ×2 (07:00→20:35)
[2018-04-16] MEDS: Nystatin/Triamcin Cream Tube 1 APPLIC TOPICAL ×2 (07:00→17:26)
--- NOTE | 2018-04-16 07:17 | NURSING ---
pt trach has been capped during this shift, no resp distress.
[2018-04-16 07:38] VITALS: PULSE 76; RESP 18; O2SAT 97
[2018-04-16] MEDS: Ipratropium/Albuterol Sulfate 3 ML AMPUL.NEB INHALATION ×3 (07:38→18:51)
[2018-04-16] MEDS: levoFLOXacin IV 500 MG/100 ML BAG 100 MG IV (09:05)
[2018-04-16] MEDS: 0.9% Normal Saline 1,000 ML 50 ML IV (12:12)
--- NOTE | 2018-04-16 12:31 | NURSING ---
Patient tolerating capped trach well, oxygen level between 98-95%, able to cough up secretions on own. RT recommending trach be d'c'd. Dr. Gustafson updated, okay to remove trach. Family and RT notified.
[2018-04-16 12:56] VITALS: PULSE 80; RESP 18
--- NOTE | 2018-04-16 14:20 | NURSING ---
trach removed by RT, patient tolerated well. DSD applied over trach site. Will continue to monitor patient.
[2018-04-16 15:52] VITALS: BP 137/83; PULSE 86; RESP 20; TEMP 35.8; O2SAT 97
[2018-04-16 17:25] VITALS: BP 137/83; PULSE 86
[2018-04-16 18:51] VITALS: PULSE 87; RESP 16
[2018-04-17 06:02] VITALS: BP 118/60; PULSE 87
[2018-04-17] MEDS: Ferrous Sulfate 300 MG/5 ML UDC 325 MG GT ×2 (06:02→17:18)
[2018-04-17] MEDS: Metoprolol Tartrate 25 MG Tablet 12.5 MG GT ×2 (06:02→17:19)
[2018-04-17] MEDS: Glycerin/Hypromellose/PEG400 15 ml Bottle 1 DRP EACH EYE ×2 (06:02→17:17)
[2018-04-17] MEDS: Menthol/Lanolin/Calamine/Znox 113 GM Tube 1 APPLIC TOPICAL ×2 (06:03→20:57)
[2018-04-17] MEDS: Heparin Injection (Vial) 5,000 UNIT/ML VIAL 5000 UNIT SC ×2 (06:03→17:17)
[2018-04-17] MEDS: Nystatin/Triamcin Cream Tube 1 APPLIC TOPICAL ×2 (06:03→17:19)
[2018-04-17] MEDS: Ipratropium/Albuterol Sulfate 3 ML AMPUL.NEB INHALATION ×2 (06:51→13:29)
[2018-04-17] MEDS: 0.9% Normal Saline 1,000 ML 50 ML IV (06:55)
[2018-04-17 07:26] VITALS: PULSE 82; RESP 20
[2018-04-17 07:28] VITALS: O2SAT 100
--- NOTE | 2018-04-17 08:11 | MDS.RN ---
Information for the mds was obtained from review of the clinical record, interview of resident, staff, and direct observation of resident's care.
[2018-04-17 13:30] VITALS: PULSE 84; RESP 20
[2018-04-17 15:47] VITALS: BP 132/88; PULSE 83; RESP 18; TEMP 36.7; O2SAT 97
[2018-04-17] MEDS: Docusate Sodium 100 MG/10 ML UDC GT (17:18)
[2018-04-17 17:19] VITALS: PULSE 83
[2018-04-17] MEDS: NYSTATIN 500,000 UNIT/5 ML UDC 500000 UNIT PO ×2 (17:25→20:38)
[2018-04-17] MEDS: MELATONIN 3 MG TABLET PO (20:38)
[2018-04-18] MEDS: 0.9% Normal Saline 1,000 ML 50 ML IV ×2 (02:12→21:02)
[2018-04-18] MEDS: Ferrous Sulfate 300 MG/5 ML UDC 325 MG GT ×2 (04:48→17:32)
[2018-04-18 04:49] VITALS: BP 112/69; PULSE 87
[2018-04-18] MEDS: Docusate Sodium 100 MG/10 ML UDC GT ×2 (04:49→17:32)
[2018-04-18] MEDS: Metoprolol Tartrate 25 MG Tablet 12.5 MG GT ×2 (04:49→17:33)
[2018-04-18] MEDS: Menthol/Lanolin/Calamine/Znox 113 GM Tube 1 APPLIC TOPICAL ×2 (04:50→20:47)
[2018-04-18] MEDS: NYSTATIN 500,000 UNIT/5 ML UDC 500000 UNIT PO ×4 (04:50→20:47)
[2018-04-18] MEDS: Heparin Injection (Vial) 5,000 UNIT/ML VIAL 5000 UNIT SC ×2 (05:02→17:43)
[2018-04-18] MEDS: Glycerin/Hypromellose/PEG400 15 ml Bottle 1 DRP EACH EYE ×2 (05:04→17:32)
[2018-04-18] MEDS: Nystatin/Triamcin Cream Tube 1 APPLIC TOPICAL (05:06)
[2018-04-18] MEDS: Ipratropium/Albuterol Sulfate 3 ML AMPUL.NEB INHALATION ×2 (07:20→15:18)
[2018-04-18 07:25] VITALS: PULSE 81; RESP 18
--- NOTE | 2018-04-18 12:11 | RAD_ITS ---
STUDY: X-RAY - ABDOMEN/PELVIS REASON FOR EXAM: Male, 78 years old. Recent abdominal aortic aneurysm repair. PEG tube placement. TECHNIQUE: AP supine and upright views of the abdomen and pelvis. COMPARISON: Comparison is made with prior study dated April 11, 2018. FINDINGS: A PEG tube is seen in the left upper quadrant presumably within the stomach. There is an unremarkable bowel gas pattern. Surgical clips are seen in the mid abdomen in keeping with the recent abdominal aortic aneurysm repair. Normal soft tissue structures. There are degenerative changes of the visualized lumbar spine. 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 RAD/Abdomen Single View (Portable) IMPRESSION: Nonspecific bowel gas pattern. A PEG tube is seen in the left upper quadrant. Electronically Signed: Bertrand Steel MD at 15:27 EST Tel [phone], Service support ,
--- NOTE | 2018-04-18 12:11 | RAD_ITS ---
STUDY: X-RAY CHEST REASON FOR EXAM: Male, 78 years old. History of aspiration pneumonia. Recent tracheostomy reversal. TECHNIQUE: Single AP portable view of the chest. COMPARISON: Comparison is made with prior examination dated April 11, 2018. FINDINGS: The tracheostomy has been removed. The lungs are clear and expanded. There is no demonstrated pleural abnormality. Normal size heart. Normal mediastinum and maximilian. Normal visualized pulmonary arteries. There is atherosclerotic calcification of the aortic arch with tortuosity. There are diffuse degenerative changes of the visualized thoracic spine. There is degenerative osteoarthritis of the bilateral shoulders. There is no demonstrated abnormality of the visualized soft tissue structures of the upper abdomen. RAD/Chest 1 View (Portable) IMPRESSION: Status post reversal of the tracheostomy. No acute abnormality seen. Electronically Signed: Bertrand Steel MD at 15:25 EST Tel [phone], Service support ,
[2018-04-18 12:45] LABS: Absolute Lymphocyte Count 1.59 X10^3/ul (0.83-4.51); Absolute Neutrophil Count 2.1 X10^3/uL (2.0-7.7); Eosinophil# 0.36 X10^3/uL; Eosinophils% 8.3 % (0-5); Hematocrit 29.4 % (40-54); Hemoglobin 9.6 g/dl (13.0-16.5); Lymphocyte # 1.59 X10^3/ul (4.0); Lymphocyte % 36.5 % (19-41); Mean Corp Hgb Conc 32.7 g/gl (32-36); Mean Corpuscular Hgb 29.6 pg (27.0-32.0); Mean Corpuscular Volume 90.7 fL (80-94); Mean Platelet Vol. 8.8 fl (6.2-12.0); Monocyte# 0.34 X10^3/uL; Monocyte% 7.8 % (0-10); Neutrophil # 2.07 X10^3/uL (2.7-7.7); Neutrophil % 47.4 % (47-70); Platelet Count 171 K/mm3 (150-450); RBC Distribution Width CV 16.1 % (11.6-14.6); RBC Distribution Width SD 54.3 fl (35.1-43.9); Red Blood Count 3.24 M/mm3 (4.6-6.2); White Blood Count 4.4 K/mm3 (4.4-11.0)
[2018-04-18 12:47] LABS: POSITIVE COUNT NO; POSITIVE DIFFERENTIAL NO; POSITIVE MORPHOLOGY NO
[2018-04-18 13:09] LABS: ALB/GLOB Ratio 0.6 RATIO (0.9-2.4); AST(SGOT) 19 U/L (15-37); Alanine Aminotransfer ALT/SGPT 14 U/L (16-61); Albumin, Serum 2.6 g/dL (3.2-5.0); Alkaline Phosphatase 118 U/L (45-117); Anion Gap 8 (5-15); BUN 26 mg/dL (7-18); BUN/Creat Ratio 21.3 RATIO (10-20); Calcium,Total 9.4 mg/dL (8.5-10.1); Chloride 103 mmol/L (98-107); Creatinine, Serum 1.22 mg/dL (0.70-1.30); EST Glomerular Filtration Rate 61 mL/min (>60); Est Glom Filt Rate - Afr Amer 74 mL/min (>60); Estimated Creatinine Clearance 49.98 ml/min; Globulin 4.6 g/dL (2.2-4.2); Glucose 102 mg/dL (74-106); Potassium 3.9 mmol/L (3.5-5.1); Protein, Total 7.2 g/dL (6.4-8.2); Sodium Level 137 mmol/L (136-145)
[2018-04-18 15:18] VITALS: PULSE 78; RESP 21
[2018-04-18 15:51] LABS: Bedside Glucose 112 mg/dL (70-110)
[2018-04-18 15:52] VITALS: BP 101/66; PULSE 87; RESP 20; TEMP 35.9; O2SAT 96
--- NOTE | 2018-04-18 16:53 | CASEMGMT ---
Brief interview for mental status (BIMS) and resident mood interview (PHQ-9) completed on this day. BIMS score 01/18. PHQ-9 score 08/30
[2018-04-18 17:33] VITALS: BP 101/66; PULSE 87
--- NOTE | 2018-04-18 18:04 | NURSING ---
Addendum entered by Hailey Alexandra 04/18/18 22:20: Lungs sounds clear. tube feed restarted 2100 40ml/hr after HS medication provided with sterile water flush 60ml. residual zero at 2200. Will continue to monitor and asses. Original Note: Addendum entered by Tala Tran 04/18/18 18:20: DR TENORIO AWARE OF LABS AND XRAY RESULTS. NO NEW ORDERS. Original Note: PT HAD SMALL LIQUID YELLOW EMESIS APPROX 30CC AFTER MEDICATION ADMIN VIA PEG TUBE. VITALS OBTAINED. ALERT & AWAKE, ORIENTED TO SELF AND PLACE. FAMILY AT BEDSIDE. HOB @ 90 DEGREES. 137/59- 92 T 98 ORALLY SAT 96% ON RA. DR TENORIO AWARE. NO NEW ORDERS. PEG TUBE ON HOLD FOR NOW.
[2018-04-18 18:32] LABS: Bacteria 0 SEEN /hpf (None Seen); Mucous, Urine 0 SEEN /hpf (<or=2+); Red Blood Cells-Urine 0 SEEN /hpf (0-5); Squamous Epithelial Cells - UA 0 SEEN /hpf (0-5); White Blood Cells 0 SEEN /hpf (0-5)
[2018-04-18 18:38] LABS: Color, Urine Yellow (Yellow); Glucose, Dipstick Normal (Normal); Ketone-Dipstick Negative (Negative); Leukocyte Esterase-Dipstick Negative /ul (Negative); Nitrite-Dipstick Negative (Negative); Occult Blood-Urine Negative /ul (Negative); Protein-Dipstick Negative (Negative); Urine Bilirubin Dipstick Negative (Negative); Urine Clarity Clear (Clear); Urine Urobilinogen Normal (Normal)
--- NOTE | 2018-04-18 20:30 | NURSING ---
Pt's family exited room while evening care being provided by marine fisheries technician and RN. Pt more talkative and alert. RN asked pt if there was anything nurse could get for pt and pt responded, A chuck howelle. Pt smiled. As family entered room pt stopped smiling. ironing worker updated. Will continue to monitor and asses.
[2018-04-18] MEDS: MELATONIN 3 MG TABLET PO (20:50)
[2018-04-19] MEDS: 0.9% NaCl Peripheral Flush Adult/Peds IV (05:44)
[2018-04-19] MEDS: Ferrous Sulfate 300 MG/5 ML UDC 325 MG GT ×2 (05:45→17:41)
[2018-04-19] MEDS: Docusate Sodium 100 MG/10 ML UDC GT ×2 (05:45→17:45)
[2018-04-19] MEDS: Heparin Injection (Vial) 5,000 UNIT/ML VIAL 5000 UNIT SC ×2 (05:45→17:54)
[2018-04-19] MEDS: Menthol/Lanolin/Calamine/Znox 113 GM Tube 1 APPLIC TOPICAL ×2 (05:45→21:23)
[2018-04-19] MEDS: Glycerin/Hypromellose/PEG400 15 ml Bottle 1 DRP EACH EYE ×2 (05:46→17:42)
[2018-04-19] MEDS: NYSTATIN 500,000 UNIT/5 ML UDC 500000 UNIT PO ×4 (05:46→21:23)
[2018-04-19 06:00] LABS: Absolute Lymphocyte Count 1.51 X10^3/ul (0.83-4.51); Absolute Neutrophil Count 2.2 X10^3/uL (2.0-7.7); Basophil# 0.03 X10^3/uL; Basophil% 0.7 % (0-1); Eosinophil# 0.33 X10^3/uL; Eosinophils% 7.3 % (0-5); Hematocrit 33.5 % (40-54); Hemoglobin 10.8 g/dl (13.0-16.5); Lymphocyte # 1.51 X10^3/ul (4.0); Lymphocyte % 33.6 % (19-41); Mean Corp Hgb Conc 32.2 g/gl (32-36); Mean Corpuscular Hgb 29.4 pg (27.0-32.0); Mean Corpuscular Volume 91.3 fL (80-94); Mean Platelet Vol. 9.6 fl (6.2-12.0); Monocyte% 8.9 % (0-10); Neutrophil # 2.21 X10^3/uL (2.7-7.7); Neutrophil % 49.3 % (47-70); Platelet Count 194 K/mm3 (150-450); RBC Distribution Width CV 16.1 % (11.6-14.6); Red Blood Count 3.67 M/mm3 (4.6-6.2); White Blood Count 4.5 K/mm3 (4.4-11.0)
[2018-04-19 06:08] LABS: POSITIVE COUNT NO; POSITIVE DIFFERENTIAL NO; POSITIVE MORPHOLOGY NO
[2018-04-19 06:37] LABS: Anion Gap 10 (5-15); BUN 26 mg/dL (7-18); BUN/Creat Ratio 19.4 RATIO (10-20); Chloride 104 mmol/L (98-107); Creatinine, Serum 1.34 mg/dL (0.70-1.30); EST Glomerular Filtration Rate 55 mL/min (>60); Est Glom Filt Rate - Afr Amer 66 mL/min (>60); Estimated Creatinine Clearance 46.91 ml/min; Glucose 87 mg/dL (74-106); Potassium 4.1 mmol/L (3.5-5.1); Sodium Level 140 mmol/L (136-145)
[2018-04-19 06:46] LABS: Bedside Glucose 99 mg/dL (70-110)
--- NOTE | 2018-04-19 07:13 | NURSING ---
Attempt X2 to insert IV to Left FA, ineffective. DSD applied. Will report to dayshift.
[2018-04-19 07:45] VITALS: PULSE 85; RESP 18
[2018-04-19] MEDS: Ipratropium/Albuterol Sulfate 3 ML AMPUL.NEB INHALATION ×3 (07:45→20:15)
[2018-04-19 11:24] VITALS: PULSE 85
--- NOTE | 2018-04-19 12:55 | NURSING ---
IV RESTARTED BY THIS RN, LT INNER FA X2 ATTEMPTS. GOOD BLOOD RETURN AND PATENT WITH FLUSH. PT'S SON ASSISTED WITH STABILIZING ARM FOR IV START. RN MADE AWARE.
[2018-04-19 13:47] VITALS: PULSE 90; RESP 16; O2SAT 98
[2018-04-19 16:00] VITALS: BP 131/83; PULSE 95; RESP 22; TEMP 36.3; O2SAT 99
[2018-04-19 17:47] VITALS: BP 131/83; PULSE 95
[2018-04-19] MEDS: Metoprolol Tartrate 25 MG Tablet 12.5 MG GT (17:47)
--- NOTE | 2018-04-19 19:29 | NURSING ---
10ml peg residual tonight
[2018-04-19 20:15] VITALS: PULSE 83; RESP 18
[2018-04-19] MEDS: MELATONIN 3 MG TABLET PO (21:23)
[2018-04-20] MEDS: 0.9% Normal Saline 1,000 ML 50 ML IV ×2 (02:03→21:50)
[2018-04-20] MEDS: NYSTATIN 500,000 UNIT/5 ML UDC 500000 UNIT PO ×4 (05:34→21:48)
[2018-04-20] MEDS: Glycerin/Hypromellose/PEG400 15 ml Bottle 1 DRP EACH EYE ×2 (05:36→17:27)
[2018-04-20] MEDS: Heparin Injection (Vial) 5,000 UNIT/ML VIAL 5000 UNIT SC ×2 (05:37→17:37)
[2018-04-20] MEDS: Menthol/Lanolin/Calamine/Znox 113 GM Tube 1 APPLIC TOPICAL ×2 (05:42→21:48)
[2018-04-20 05:43] VITALS: BP 114/55; PULSE 88
[2018-04-20] MEDS: Metoprolol Tartrate 25 MG Tablet 12.5 MG GT ×2 (05:43→17:30)
[2018-04-20] MEDS: Docusate Sodium 100 MG/10 ML UDC GT ×2 (05:45→17:32)
[2018-04-20] MEDS: Ferrous Sulfate 300 MG/5 ML UDC 325 MG GT ×2 (05:45→17:31)
[2018-04-20 06:45] VITALS: PULSE 80; RESP 18; O2SAT 97
[2018-04-20] MEDS: Ipratropium/Albuterol Sulfate 3 ML AMPUL.NEB INHALATION ×3 (06:45→19:20)
[2018-04-20 06:51] LABS: Bedside Glucose 121 mg/dL (70-110)
--- NOTE | 2018-04-20 13:00 | RAD_ITS ---
STUDY: SWALLOWING STUDY REASON FOR EXAM: Male, 78 years old. Dysphasia. History of stroke. TECHNIQUE: The examination was performed with Speech Pathology in attendance. Under fluoroscopic observation, the patient ingested thin barium, thick barium, barium pudding, and barium coated cracker. FLUOROSCOPY TIME: 2:27 minutes/seconds. 2258 fluoroscopic images were obtained. RADIOLOGIST INVOLVEMENT: Radiologist was present and providing direct supervision. COMPARISON: None. FINDINGS: The following was observed during swallowing of the various mixtures of barium: Thin Barium: Transient penetration to the level of the vocal cords with ingestion of thin fluids. This improves with the chin tuck maneuver. Thick Barium: There was no evidence of aspiration or laryngeal penetration. Barium Pudding: There was no evidence of aspiration or laryngeal penetration. Barium Coated Cracker: There was no evidence of aspiration or laryngeal penetration. RAD/Swallowing Function w/Video IMPRESSION: Transient penetration to the level of the vocal cords with ingestion of thin liquids. This improves with the chin tuck maneuver. The swallow study findings were discussed with the patient by the speech pathologist at the conclusion of the examination. Please see speech pathology report for more information and recommendations. Electronically Signed: Bertrand Steel MD at 13:52 EST Tel [phone], Service support ,
[2018-04-20 14:30] VITALS: PULSE 85; RESP 18
--- NOTE | 2018-04-20 14:34 | SP.MBSS_ITS ---
PRIMARY / SECONDARY DIAGNOSIS: Moderate Oropharyngeal Dysphagia (R13.12) REFERRING PHYSICIAN: Dr. Gustafson CURRENT DIET: NPO with PEG supplementation for all nutrition/hydration/medication DENTITION: natural teeth MENTAL STATUS: Alert and oriented to name and RESPIRATORY STATUS: oxygenating on room air; breath sounds clear upon auscultation per most recent teacher's aide. PREVIOUS MODIFIED BARIUM SWALLOW STUDY: unknown to this BRIM STIFFENER prior to [facility] admission REASON FOR REFERRAL: history of dysphagia MEDICAL HISTORY: Pt is a 78/m with pmhx significant for ruptured abdominal aortic aneurysm, cardiac arrest,anoxic encephalopathy, hyperlipidemia, acute kidney injury, tachycardia, disseminated intravascular coagulation, ileus, iron deficiency anemia, GERD, dysphagia, coronary artery disease, and HTN. Pt presented to ED on 01/11/2018 with syncope, left flank pain, diaphoresis, and nausea. He was diagnosed with 6CM abdominal aortic aneurysm with appointment with vascular surgery 01/12/2018. 01/11/2018 CT scan of abdomen/pelvis showed ruptured abdominal aortic aneurysm. Pt then intubated and transfused 4 units of blood. The pt was lifeflighted to [facility] where on 01/12/2018 Dr. Paniagua performed emergent AAA repair. Pt then transferred to [facility] for recovery where he received a trach, PEG and condom catheter on 01/27/2018. Throughout this course of recovery, pt has had code blue called 5x due to vasovagal response thought to be secondary to Famotidine. Family was told at that time not to expect full recovery. Pt found also to have HCAP which was being treated with IV antibiotics. Pt currently on [facility] TCU for rehabilitation. While on TCU, pt has had trach removed 04/16/2018 and has been tolerating therapy (PT, OT, and ST). STUDY FINDINGS: Patient participated in a Modified Barium Swallow (MBS) study on . Dr. Steel was the radiologist present for this evaluation. This study was recorded in the lateral view and images were sent to PACs for storage. The following consistencies were presented to this patient for analysis of oropharyngeal swallow function: thin liquid, nectar thickliquid, honey thick liquid, pudding, and a regular textured, Kamila Doone cookie. Results of the MBS are as follows: PENETRATION / ASPIRATION SCALE (QUIJANO): 1 = does not enter airway 2 = enters airway/above vocal folds/ejected 3 = enters airway/above vocal folds/not ejected 4 = enters airway/contacts vocal folds/ejected 5 = enters airway/contacts vocal folds/not ejected 6 = enters airway/below vocal folds/ejected 7 = enters airway/below vocal folds/not ejected despite effort 8 = enters airway/below vocal folds/no effort PENETRATION / ASPIRATION SCALE (SCORE): Honey thickened liquid via tsp: 1 Honey thickened liquid via cup: 2 Braham thickened liquid via cup: 2 Braham thickened liquid via cup:3 Thin liquids via tsp: 2 Thin liquids via tsp: 2 Thin liquids via cup (single sip no chin tuck): 5 Thin liquids via cup (single sip with chin tuck):4 Thin liquids(single sip with chin tuck): 2 Puddin Regular textured cookie: 1 IMPRESSION: Diagnosis: Moderate oropharyngeal dysphagia (R13.12) ORAL PHASE CHARACTERIZED BY: LABIAL SEAL: interlabial escape, no progression to anterior lip TONGUE CONTROL DURING BOLUS MANIPULATION: posterior escape of greater than half of bolus BOLUS PREPARATION / MASTICATION: slow prolonged chewing/mashing with complete recollection BOLUS TRANSPORT / LINGUAL MOTION: repetitive/disorganized tongue motion ORAL RESIDUE: residue collection on oral structures PHARYNGEAL PHASE CHARACTERIZED BY: INITIATION OF PHARYNGEAL SWALLOW: bolus head in pyriforms at first hyoid excursion SOFT PALATE ELEVATION: trace column of contrast/air between soft palate and pharyngeal wall LARYNGEAL ELEVATION: partial superior movement of thyroid cartilage/partial approximation of arytenoids cartilage to epiglottic petiole ANTERIOR HYOID EXCURSION: partial anterior movement EPIGLOTTIC MOVEMENT: complete epiglottic inversion LARYNGEAL VESTIBULE CLOSURE AT HEIGHT OF SWALLOW: incomplete laryngeal vestibule closure with narrow column of air/contrast in laryngeal vestibule PHARYNGEAL STRIPPING WAVE: pharyngeal stripping wave present / complete PHARYNGOESOPHAGEAL SEGMENT OPENING: partial distension and partial duration; partial obstruction of flow TONGUE BASE RETRACTION: narrow column of contrast between tongue base and posterior pharyngeal wall PHARYNGEAL RESIDUE: collection of residue within or on pharyngeal structures ESOPHAGEAL PHASE CHARACTERIZED BY: ESOPHAGEAL BOLUS CLEARANCE IN THE UPRIGHT POSITION: *could not view EFFECTS OF TREATMENT STRATEGIES ATTEMPTED: Chin tuck posture = mildly effective at decreasing penetration with thin liquids, however pt would require extensive training for proper execution prior to consideration for advancement. DIET TEXTURE RECOMMENDATIONS: Will recommend a honey thickened liquids and puree textures. COMPENSATORY STRATEGIES RECOMMENDED: Supervised meals/drinks, only feed when alert, reduced bolus volume, reduced rate of intake, seated upright at 90 degrees during PO intake, remain upright for 30-60 minutes post meal (GERD precaution), and medications crushed (if able) with purees. INTERPRETATION OF RESULTS: Patient presents with moderate oropharyngeal dysphagia (R13.12) secondary to AAA resulting in intubation and later tracheostomy. Oral phase primarily marked by moderate mastication inefficiency and suboptimal lingual control along with delayed swallow onset resulting in premature bolus loss. Pharyngeal phase primarily marked by delayed pharyngeal swallow onset timing resulting in penetration with nectar thick liquids, thin liquids, and trace amounts of honey thick liquids (when presented in larger volume via cup). Reduced laryngeal elevation present with adequate pharyngeal stripping wall. Upper esophageal segment narrowing apparent resulting in pharyngeal retention. No aspiration noted throughout trials. RECOMMENDATIONS: Would consider repeat Modified Barium Swallow Study in 3-4 weeks (if clinically appropriate) prior to consideration of advancement of liquids. Advancement of textures can be done following bedside evaluation as patient is able to tolerate. Would consider training and implementation of oropharyngeal strengthening exercises to facilitate improved oropharyngeal strength and coordination as well as compensatory strategy training with patient, family, and staff to reduce risks of penetration/aspiration. ADDITIONAL COMMENTS/RECOMMENDATIONS: Results and recommendations were discussed with the patient and family following MBS completion, with the patient/family verbalizing understanding and agreement with all recommendations and education provided. IMAGE COUNT: [id number] G-CODES: SWALLOWING [id number] Current Status: CJ SWALLOWING [id number] Goal Status: CI Viktoriya Hickey MA,CCC-BRIM STIFFENER
[2018-04-20 15:10] VITALS: BP 111/54; PULSE 92; RESP 20; TEMP 36.4; O2SAT 96
[2018-04-20 17:30] VITALS: BP 111/54; PULSE 92
--- NOTE | 2018-04-20 18:08 | NURSING ---
Per ST patient now honey thick, puree diet with supervision by family or staff.
[2018-04-20 19:15] VITALS: PULSE 84; RESP 18
[2018-04-20] MEDS: MELATONIN 3 MG TABLET PO (21:48)
--- NOTE | 2018-04-21 00:54 | NURSING ---
pt incont or urine. pt cleaned up and repostion to left side. son and grandson at bedside
[2018-04-21] MEDS: Glycerin/Hypromellose/PEG400 15 ml Bottle 1 DRP EACH EYE ×2 (06:30→17:11)
--- NOTE | 2018-04-21 06:30 | NURSING ---
Pt tf residual 13cc. meds given and flushed
[2018-04-21] MEDS: NYSTATIN 500,000 UNIT/5 ML UDC 500000 UNIT PO ×4 (06:31→22:07)
[2018-04-21] MEDS: Heparin Injection (Vial) 5,000 UNIT/ML VIAL 5000 UNIT SC ×2 (06:31→17:11)
[2018-04-21] MEDS: Ferrous Sulfate 300 MG/5 ML UDC 325 MG GT ×2 (06:32→17:11)
[2018-04-21] MEDS: Docusate Sodium 100 MG/10 ML UDC GT ×2 (06:32→17:11)
[2018-04-21 06:36] VITALS: BP 92/51; PULSE 86
[2018-04-21 06:51] VITALS: PULSE 86; RESP 18; O2SAT 98
[2018-04-21] MEDS: Ipratropium/Albuterol Sulfate 3 ML AMPUL.NEB INHALATION ×2 (06:51→13:05)
[2018-04-21 06:56] LABS: Bedside Glucose 111 mg/dL (70-110)
[2018-04-21] MEDS: Menthol/Lanolin/Calamine/Znox 113 GM Tube 1 APPLIC TOPICAL ×2 (07:05→22:24)
[2018-04-21 13:05] VITALS: PULSE 90; RESP 18
[2018-04-21 16:00] VITALS: BP 138/99; PULSE 88; RESP 20; TEMP 36.4; O2SAT 96
[2018-04-21] MEDS: 0.9% Normal Saline 1,000 ML 50 ML IV (17:10)
[2018-04-21 17:11] VITALS: PULSE 88
[2018-04-21] MEDS: Metoprolol Tartrate 25 MG Tablet 12.5 MG GT (17:11)
--- NOTE | 2018-04-21 17:25 | NURSING ---
Residual 15cc
[2018-04-21] MEDS: MELATONIN 3 MG TABLET PO (22:07)
[2018-04-22 06:30] VITALS: BP 112/78; PULSE 87
[2018-04-22] MEDS: Docusate Sodium 100 MG/10 ML UDC GT ×2 (06:30→16:33)
[2018-04-22] MEDS: Heparin Injection (Vial) 5,000 UNIT/ML VIAL 5000 UNIT SC ×2 (06:30→16:33)
[2018-04-22] MEDS: NYSTATIN 500,000 UNIT/5 ML UDC 500000 UNIT PO ×4 (06:30→20:24)
[2018-04-22] MEDS: Glycerin/Hypromellose/PEG400 15 ml Bottle 1 DRP EACH EYE ×2 (06:30→16:45)
[2018-04-22] MEDS: Ferrous Sulfate 300 MG/5 ML UDC 325 MG GT ×2 (06:30→16:33)
[2018-04-22] MEDS: Menthol/Lanolin/Calamine/Znox 113 GM Tube 1 APPLIC TOPICAL ×2 (06:30→20:24)
[2018-04-22] MEDS: Metoprolol Tartrate 25 MG Tablet 12.5 MG GT ×2 (06:30→16:33)
[2018-04-22 06:40] VITALS: PULSE 92; RESP 14; O2SAT 96
[2018-04-22 06:51] LABS: Bedside Glucose 105 mg/dL (70-110)
[2018-04-22] MEDS: 0.9% Normal Saline 1,000 ML 50 ML IV (12:10)
[2018-04-22 15:22] VITALS: BP 114/64; PULSE 89; RESP 20; TEMP 36.6; O2SAT 94
[2018-04-22 16:33] VITALS: BP 120/74; PULSE 110
--- NOTE | 2018-04-22 17:02 | NURSING ---
pt felt like he was getting sick, pt spit up phlegm. pt just had his meds via PEG. Tube feed stopped. will restart when feeling less sick. Pt HOB 90 degrees family at bedside.
[2018-04-22] MEDS: MELATONIN 3 MG TABLET PO (20:24)
[2018-04-23] MEDS: Heparin Injection (Vial) 5,000 UNIT/ML VIAL 5000 UNIT SC ×2 (06:39→17:39)
[2018-04-23 06:44] VITALS: BP 142/78; PULSE 94
[2018-04-23] MEDS: Glycerin/Hypromellose/PEG400 15 ml Bottle 1 DRP EACH EYE ×2 (06:44→17:37)
[2018-04-23] MEDS: Metoprolol Tartrate 25 MG Tablet 12.5 MG GT ×2 (06:44→17:40)
[2018-04-23] MEDS: Ferrous Sulfate 300 MG/5 ML UDC 325 MG GT ×2 (06:46→17:38)
[2018-04-23] MEDS: Docusate Sodium 100 MG/10 ML UDC GT ×2 (06:46→17:39)
[2018-04-23] MEDS: NYSTATIN 500,000 UNIT/5 ML UDC 500000 UNIT PO ×4 (06:47→22:13)
[2018-04-23] MEDS: Menthol/Lanolin/Calamine/Znox 113 GM Tube 1 APPLIC TOPICAL ×2 (06:49→22:05)
[2018-04-23] MEDS: 0.9% Normal Saline 1,000 ML 50 ML IV (07:01)
--- NOTE | 2018-04-23 07:33 | NURSING ---
Residual zero this AM
[2018-04-23 16:00] VITALS: BP 136/75; PULSE 79; RESP 16; TEMP 36.7; O2SAT 97
[2018-04-23 17:40] VITALS: PULSE 90
[2018-04-23] MEDS: MELATONIN 3 MG TABLET PO (22:05)
[2018-04-24] MEDS: 0.9% Normal Saline 1,000 ML 50 ML IV ×2 (02:52→22:17)
[2018-04-24] MEDS: Menthol/Lanolin/Calamine/Znox 113 GM Tube 1 APPLIC TOPICAL ×2 (03:10→22:19)
[2018-04-24] MEDS: NYSTATIN 500,000 UNIT/5 ML UDC 500000 UNIT PO ×4 (03:11→22:00)
[2018-04-24] MEDS: Glycerin/Hypromellose/PEG400 15 ml Bottle 1 DRP EACH EYE ×2 (03:11→17:57)
[2018-04-24 05:58] VITALS: BP 110/68; PULSE 84
[2018-04-24] MEDS: Metoprolol Tartrate 25 MG Tablet 12.5 MG GT (05:58)
[2018-04-24] MEDS: Ferrous Sulfate 300 MG/5 ML UDC 325 MG GT (06:00)
[2018-04-24] MEDS: Heparin Injection (Vial) 5,000 UNIT/ML VIAL 5000 UNIT SC ×2 (06:00→17:59)
[2018-04-24] MEDS: Docusate Sodium 100 MG/10 ML UDC GT (06:00)
[2018-04-24 06:46] LABS: Bedside Glucose 134 mg/dL (70-110)
[2018-04-24 15:22] VITALS: BP 124/69; PULSE 87; RESP 16; TEMP 35.9; O2SAT 97
[2018-04-24] MEDS: Docusate Sodium 100 MG Capsule PO (18:36)
[2018-04-24 18:37] VITALS: BP 124/69; PULSE 87
[2018-04-24] MEDS: Metoprolol Tartrate 25 MG Tablet 12.5 MG PO (18:37)
[2018-04-24] MEDS: Ferrous Sulfate 325 MG Tablet PO (18:44)
[2018-04-24] MEDS: MELATONIN 3 MG TABLET PO (22:00)
[2018-04-25 06:29] VITALS: BP 137/69; PULSE 84
[2018-04-25] MEDS: Docusate Sodium 100 MG Capsule PO (06:29)
[2018-04-25] MEDS: NYSTATIN 500,000 UNIT/5 ML UDC 500000 UNIT PO ×4 (06:29→20:13)
[2018-04-25] MEDS: Glycerin/Hypromellose/PEG400 15 ml Bottle 1 DRP EACH EYE ×2 (06:29→17:34)
[2018-04-25] MEDS: Metoprolol Tartrate 25 MG Tablet 12.5 MG PO ×2 (06:29→18:10)
[2018-04-25] MEDS: Pantoprazole Sodium 40 MG Tablet PO (06:29)
[2018-04-25] MEDS: Heparin Injection (Vial) 5,000 UNIT/ML VIAL 5000 UNIT SC ×2 (06:29→18:10)
[2018-04-25 06:45] LABS: Bedside Glucose 109 mg/dL (70-110)
[2018-04-25] MEDS: Menthol/Lanolin/Calamine/Znox 113 GM Tube 1 APPLIC TOPICAL ×2 (06:57→20:16)
--- NOTE | 2018-04-25 08:41 | NURSING ---
fibreglass laminator in to see pt and family regarding tube feeds. fibreglass laminator recommending night feeds starting at 5p and running 12 hrs at same rate and flush. son & pt agreeable to assist with appetite orally. Tube feed stopped at this time, flushed with 60cc sterile water. pt hob elevated 90 degrees son assisting pt with brkfst.
--- NOTE | 2018-04-25 10:49 | NURSING ---
colace changed back to liquid, pill form cannot be crushed.
--- NOTE | 2018-04-25 11:40 | CASEMGMT ---
Brief interview for mental status (BIMS) and resident mood interview (PHQ-9) completed on this day. BIMS score 01/18. PHQ-9 score 08/30
--- NOTE | 2018-04-25 11:53 | CASEMGMT ---
Brief interview for mental status (BIMS) and resident mood interview (PHQ-9) completed on this day. BIMS score 02/18. PHQ-9 score 08/30
[2018-04-25] MEDS: Ferrous Sulfate 325 MG Tablet PO ×2 (12:57→17:34)
[2018-04-25 16:00] VITALS: BP 113/84; PULSE 86; RESP 20; TEMP 36.7; O2SAT 96
--- NOTE | 2018-04-25 17:25 | NURSING ---
This RN in room to hook resident up to TWOCAL feed per PEG. PEG flushed with 60 ml of sterile water. Feed started at 40 ml/hr. Feed had not been on for more than a few minutes and resident reports feeling like he has to vomit. Scant amount of clear emesis noted. Tube feed stopped and family wishing to leave it off for awhile. Tala regional clinical director aware.
[2018-04-25 18:10] VITALS: PULSE 86
[2018-04-25] MEDS: 0.9% Normal Saline 1,000 ML 50 ML IV (18:19)
--- NOTE | 2018-04-25 18:22 | NURSING ---
Son at bedside. Resident takes medications with applesauce and small sips of thickened applejuice. Denies nausea. Family wishes to continue to leave off tube feed at this time. Will update JJ Edgar in regards to this.
[2018-04-25] MEDS: MELATONIN 3 MG TABLET PO (20:11)
[2018-04-26 05:47] VITALS: BP 142/90; PULSE 87
[2018-04-26] MEDS: Metoprolol Tartrate 25 MG Tablet 12.5 MG PO ×2 (05:47→18:43)
[2018-04-26] MEDS: Docusate Sodium 100 MG/10 ML UDC PO ×2 (05:48→18:45)
[2018-04-26] MEDS: Pantoprazole Sodium 40 MG Tablet PO (05:48)
[2018-04-26] MEDS: NYSTATIN 500,000 UNIT/5 ML UDC 500000 UNIT PO ×4 (05:49→20:26)
[2018-04-26 05:54] LABS: Absolute Lymphocyte Count 1.94 X10^3/ul (0.83-4.51); Absolute Neutrophil Count 2.3 X10^3/uL (2.0-7.7); Basophil# 0.01 X10^3/uL; Basophil% 0.2 % (0-1); Eosinophil# 0.35 X10^3/uL; Hemoglobin 9.9 g/dl (13.0-16.5); Lymphocyte # 1.94 X10^3/ul (4.0); Lymphocyte % 38.6 % (19-41); Mean Corpuscular Volume 90.9 fL (80-94); Mean Platelet Vol. 9.4 fl (6.2-12.0); Monocyte# 0.43 X10^3/uL; Monocyte% 8.5 % (0-10); Neutrophil # 2.29 X10^3/uL (2.7-7.7); Neutrophil % 45.5 % (47-70); Platelet Count 231 K/mm3 (150-450); RBC Distribution Width CV 15.3 % (11.6-14.6)
[2018-04-26 05:56] LABS: POSITIVE COUNT NO; POSITIVE DIFFERENTIAL NO; POSITIVE MORPHOLOGY NO
[2018-04-26] MEDS: Heparin Injection (Vial) 5,000 UNIT/ML VIAL 5000 UNIT SC ×2 (06:01→18:37)
[2018-04-26] MEDS: Glycerin/Hypromellose/PEG400 15 ml Bottle 1 DRP EACH EYE (06:09)
[2018-04-26] MEDS: Menthol/Lanolin/Calamine/Znox 113 GM Tube 1 APPLIC TOPICAL ×2 (06:11→20:40)
[2018-04-26 06:13] VITALS: BP 137/81; PULSE 84
[2018-04-26 06:14] LABS: Anion Gap 9 (5-15); BUN 24 mg/dL (7-18); BUN/Creat Ratio 20.2 RATIO (10-20); Calcium,Total 9.6 mg/dL (8.5-10.1); Chloride 104 mmol/L (98-107); Creatinine, Serum 1.19 mg/dL (0.70-1.30); EST Glomerular Filtration Rate 63 mL/min (>60); Est Glom Filt Rate - Afr Amer 76 mL/min (>60); Estimated Creatinine Clearance 52.82 ml/min; Glucose 93 mg/dL (74-106); Potassium 4.1 mmol/L (3.5-5.1); Sodium Level 139 mmol/L (136-145)
[2018-04-26 06:50] LABS: Bedside Glucose 104 mg/dL (70-110)
--- NOTE | 2018-04-26 08:01 | NURSING ---
twocal stopped now, got started late d/t pt not feeling well last evening. flushed tube with 60cc water. pt tolerated well, daughter at bedside. reviewed lees water protocol with daughter, answered questions. pt sitting in bed, HOB elevated 90 degrees. pt ready to eat solid food with assit of family.
[2018-04-26] MEDS: Ferrous Sulfate 325 MG Tablet PO (12:15)
[2018-04-26 14:21] LABS: Bedside Glucose 98 mg/dL (70-110)
[2018-04-26] MEDS: 0.9% Normal Saline 1,000 ML 50 ML IV (14:32)
--- NOTE | 2018-04-26 14:41 | MDS.RN ---
Information for the mds was obtained from review of the clinical record, interview of resident, staff, and direct observation of resident's care.
[2018-04-26 16:00] VITALS: BP 143/89; PULSE 67; RESP 18; TEMP 36.7; O2SAT 96
--- NOTE | 2018-04-26 18:33 | NURSING ---
pt & family requesting that artificial tears be changed to PRN. Pt not wanting them unless needed. ordered entered.
[2018-04-26 18:43] VITALS: PULSE 67
[2018-04-26] MEDS: Ferrous Sulfate 300 MG/5 ML UDC PO (20:26)
[2018-04-26] MEDS: MELATONIN 3 MG TABLET PO (20:26)
[2018-04-27 05:42] VITALS: BP 135/74; PULSE 79
[2018-04-27] MEDS: Heparin Injection (Vial) 5,000 UNIT/ML VIAL 5000 UNIT SC ×2 (05:42→19:56)
[2018-04-27] MEDS: Pantoprazole Sodium 40 MG Tablet PO (05:42)
[2018-04-27] MEDS: Docusate Sodium 100 MG/10 ML UDC PO ×2 (05:42→19:56)
[2018-04-27] MEDS: NYSTATIN 500,000 UNIT/5 ML UDC 500000 UNIT PO ×2 (05:42→11:45)
[2018-04-27] MEDS: Metoprolol Tartrate 25 MG Tablet 12.5 MG PO ×2 (05:42→19:56)
[2018-04-27] MEDS: Menthol/Lanolin/Calamine/Znox 113 GM Tube 1 APPLIC TOPICAL ×2 (06:01→20:32)
[2018-04-27 06:35] LABS: Bedside Glucose 100 mg/dL (70-110)
[2018-04-27] MEDS: Ferrous Sulfate 300 MG/5 ML UDC PO ×2 (11:41→19:56)
[2018-04-27] MEDS: 0.9% Normal Saline 1,000 ML 50 ML IV (11:43)
--- NOTE | 2018-04-27 14:47 | NURSING ---
Pt pulled out IV, Dr. Gustafson notified, Okay to stop IVF. NO to d/c nystatin and start chlorahexedine mouth wash BID. Family aware.
[2018-04-27 15:42] VITALS: BP 118/79; PULSE 89; RESP 18; TEMP 36.9; O2SAT 96
[2018-04-27 19:56] VITALS: BP 144/78; PULSE 89
[2018-04-27] MEDS: MELATONIN 3 MG TABLET PO (19:56)
[2018-04-27] MEDS: Chlorhexidine 480 ML 15 ML PO (20:12)
[2018-04-28 07:06] VITALS: PULSE 79; RESP 16; O2SAT 95
[2018-04-28] MEDS: Albuterol 2.5 MG/3 ML VIAL.NEB. INHALATION (07:06)
[2018-04-28 07:51] LABS: Bedside Glucose 116 mg/dL (70-110)
[2018-04-28] MEDS: Pantoprazole Sodium 40 MG Tablet PO (08:31)
[2018-04-28] MEDS: Ferrous Sulfate 300 MG/5 ML UDC PO ×2 (08:31→17:47)
[2018-04-28] MEDS: Heparin Injection (Vial) 5,000 UNIT/ML VIAL 5000 UNIT SC ×2 (08:31→17:48)
[2018-04-28] MEDS: Docusate Sodium 100 MG/10 ML UDC PO ×2 (08:31→17:47)
[2018-04-28 08:32] VITALS: BP 112/60; PULSE 76
[2018-04-28] MEDS: Metoprolol Tartrate 25 MG Tablet 12.5 MG PO ×2 (08:32→17:47)
[2018-04-28] MEDS: Chlorhexidine 480 ML 15 ML PO ×2 (09:07→17:47)
[2018-04-28] MEDS: Menthol/Lanolin/Calamine/Znox 113 GM Tube 1 APPLIC TOPICAL ×2 (09:08→20:15)
[2018-04-28 16:00] VITALS: BP 122/73; PULSE 82; RESP 16; TEMP 36.7; O2SAT 99
[2018-04-28 17:47] VITALS: BP 122/73; PULSE 82
[2018-04-28] MEDS: MELATONIN 3 MG TABLET PO (20:13)
[2018-04-29 05:53] VITALS: BP 130/79; PULSE 85
[2018-04-29] MEDS: Metoprolol Tartrate 25 MG Tablet 12.5 MG PO ×2 (05:53→17:41)
[2018-04-29] MEDS: Menthol/Lanolin/Calamine/Znox 113 GM Tube 1 APPLIC TOPICAL ×2 (05:53→20:17)
[2018-04-29] MEDS: Heparin Injection (Vial) 5,000 UNIT/ML VIAL 5000 UNIT SC ×2 (05:54→17:55)
[2018-04-29] MEDS: Docusate Sodium 100 MG/10 ML UDC PO ×2 (05:55→17:41)
[2018-04-29] MEDS: Chlorhexidine 480 ML 15 ML PO ×2 (05:55→17:45)
[2018-04-29 07:01] LABS: Bedside Glucose 117 mg/dL (70-110)
[2018-04-29] MEDS: Ferrous Sulfate 300 MG/5 ML UDC PO ×2 (12:07→17:40)
[2018-04-29 16:00] VITALS: BP 106/73; PULSE 87; RESP 20; TEMP 36; O2SAT 95
[2018-04-29 17:41] VITALS: BP 107/73; PULSE 87
[2018-04-29] MEDS: MELATONIN 3 MG TABLET PO (20:14)
[2018-04-30] MEDS: Docusate Sodium 100 MG/10 ML UDC PO ×2 (05:32→16:13)
[2018-04-30 05:33] VITALS: BP 129/61; PULSE 100
[2018-04-30] MEDS: Metoprolol Tartrate 25 MG Tablet 12.5 MG PO ×2 (05:33→16:12)
[2018-04-30] MEDS: Chlorhexidine 480 ML 15 ML PO ×2 (05:37→16:13)
[2018-04-30] MEDS: Heparin Injection (Vial) 5,000 UNIT/ML VIAL 5000 UNIT SC ×2 (05:39→16:24)
[2018-04-30] MEDS: Menthol/Lanolin/Calamine/Znox 113 GM Tube 1 APPLIC TOPICAL ×2 (05:41→20:50)
[2018-04-30 06:45] LABS: Bedside Glucose 114 mg/dL (70-110)
[2018-04-30 11:10] VITALS: O2SAT 95
[2018-04-30] MEDS: Ferrous Sulfate 300 MG/5 ML UDC PO ×2 (11:54→16:13)
[2018-04-30 16:00] VITALS: BP 135/79; PULSE 81; RESP 18; TEMP 35.7; O2SAT 96
[2018-04-30 16:12] VITALS: BP 135/74; PULSE 80
[2018-05-01 04:56] VITALS: BP 109/49; PULSE 87
[2018-05-01] MEDS: Metoprolol Tartrate 25 MG Tablet 12.5 MG PO ×2 (04:56→16:58)
[2018-05-01] MEDS: Docusate Sodium 100 MG/10 ML UDC PO ×2 (04:59→16:58)
[2018-05-01] MEDS: Chlorhexidine 480 ML 15 ML PO ×2 (05:00→16:59)
[2018-05-01] MEDS: Heparin Injection (Vial) 5,000 UNIT/ML VIAL 5000 UNIT SC ×2 (05:02→16:59)
[2018-05-01] MEDS: Menthol/Lanolin/Calamine/Znox 113 GM Tube 1 APPLIC TOPICAL ×2 (05:11→20:44)
[2018-05-01 06:51] LABS: Bedside Glucose 96 mg/dL (70-110)
[2018-05-01 08:53] VITALS: PULSE 81; RESP 17
[2018-05-01] MEDS: Albuterol 2.5 MG/3 ML VIAL.NEB. INHALATION (08:53)
[2018-05-01] MEDS: Ferrous Sulfate 300 MG/5 ML UDC PO ×2 (11:39→16:58)
[2018-05-01 15:14] VITALS: BP 124/69; PULSE 85; RESP 18; TEMP 35.9; O2SAT 97
[2018-05-01 16:05] VITALS: O2SAT 96
[2018-05-01 16:58] VITALS: PULSE 85
--- NOTE | 2018-05-01 19:41 | PCM.TCUNOT ---
Subjective: Resident seen in room, in bed. Granddaughter at bedside. Resident fatigued from therapy today, but otherwise has no complaints. Granddaughter has no new complaints. Resident's confusion has progressively improved, only happens when he wakes up and for short time. He has rare hallucinations. Vitals/I&O's: Vital Signs Temp Pulse Resp BP Pulse Ox 96.6 F L 85 18 124/69 H 96 05/01/18 15:14 05/01/18 16:58 05/01/18 15:14 05/01/18 15:14 05/01/18 16:05 Oxygen Flow Rate (L/min) 2 Oxygen Delivery Method Room Air Weight: 75.1 kg Body Mass Index (BMI) 23.0 Intake and Output for Last 24 Hours 04/29/18 04/30/18 05/01/18 23:59 23:59 23:59 Intake Total 1019 / 1019 300 / 300 1794 / 1794 Balance 1019 / 1019 300 / 300 1794 / 1794 Laboratory Results 05/01/18 06:32: POC Glucose 96 Past Medical History Past Medical History (Chronic Problems): Chronic Problems Anoxic encephalopathy (Chronic) Hyperlipidemia (Chronic) Iron deficiency anemia (Chronic) GERD (gastroesophageal reflux disease) (Chronic) Dysphagia (Chronic) Anemia (Chronic) Vasovagal syndrome (Chronic) Coronary artery disease (Chronic) Coronary artery disease (Chronic) Hypertension (Chronic) Allergies famotidine [From Pepcid] Adverse Reaction (Verified 04/01/18 03:17) Low blood pressure metoclopramide [From Reglan] Adverse Reaction (Verified 04/01/18 03:17) Other Home Medications: Ambulatory Orders Medication Instructions Recorded Chlorhexidine 15 ml PO BID 03/28/18 Docusate Sodium [COLACE LIQUID] 100 mg GT BID 03/28/18 Ferrous Sulfate Syrup 325 mg GT BID 03/28/18 Heparin Injection 5,000 units SC BID 03/28/18 Ipratropium/Albuterol Sulfate 3 ml INHALATION TID 03/28/18 [Duoneb] Lansoprazole [Prevacid] 30 mg GT DAILY 03/28/18 Metoprolol Tartrate [Lopressor 12.5 mg GT BID 03/28/18 (beta lyric)] Nystatin 100,000 unit PO 4X/DAY 03/28/18 Propylene Glycol/Peg 400/Pf 1 each OP BID 03/28/18 [Systane 0.3-0.4% Eye Drop] Albuterol Aerosols [Ventolin 2.5 mg INHALATION Q2H PRN PRN 04/04/18 Aerosols] vial.neb. Levofloxacin [Levaquin] 500 mg GT DAILY 04/04/18 Surgical History: - - LUE surgery w/ hardware, recent emergent AAA repair, trach, PEG. Psychiatric History: No pertinent psych hx Lives: [facility] Smoking Status: Never smoker Tobacco Use: Non-smoker Alcohol: None Drugs: None - *Family History Paternal History Items: - - No marked maternal or paternal family history reported including HD, DM, CA. Maternal History Items: - - No marked maternal or paternal family history reported including HD, DM, CA. Review of Systems Constitutional: Reports: Fatigue. Denies: Chills, Fever, Weight Change HEENT: Denies: Head Aches, Sinus Congestion, Sinus Drainage Cardiovascular: Denies: Chest Pain, Palpitations Respiratory: Denies: Cough, Shortness of breath at rest, Sputum production Gastrointestinal: Denies: Abdominal Pain, Nausea, Vomiting Genitourinary: Denies: Dysuria Musculoskeletal: Denies: Joint Pain, Joint Tenderness Skin: Denies: Rash, Wounds Neurological: Denies: Numbness, Tingling, Focal weakness Psychiatric: Denies: Anxiety, Depression, Homicidal Ideations, Suicidal Ideations Hematologic/ Lymphatic: Denies: Easy Bruising, Easy Bleeding Patient Problems: Active and Suspected Problems Change in mental status (Acute) Aspiration pneumonia (Acute) - Physical Exam General: Alert, Oriented x3, Cooperative HEENT: Atraumatic, PERRLA, EOMI, Normocephalic Neck: Supple, No JVD, Negative Carotid Bruits, - - Tracheostomy covered with dry dressing. Lungs: Clear to auscultation, Normal air movement Cardiovascular: Regular rate, No murmurs Abdomen: Bowel Sounds Present, Soft, Non Tender, - - PEG tube. Extremities: No edema, Capillary Refill Less than 3 Seconds Skin: No rashes, No breakdown Musculoskeletal: No Tenderness to Palpation of Joints or Extremities Neurological: Cranial nerves II-XII grossly intact Psych/Mental Status: Normal Affect, Appropriate Vital Signs Temp Pulse Resp BP Pulse Ox 96.6 F L 85 18 124/69 H 96 05/01/18 15:14 05/01/18 16:58 05/01/18 15:14 05/01/18 15:14 05/01/18 16:05 Oxygen Flow Rate (L/min) 2 Oxygen Delivery Method Room Air Weight: 75.1 kg Body Mass Index (BMI) 23.0 Intake and Output for Last 24 Hours 04/29/18 04/30/18 05/01/18 23:59 23:59 23:59 Intake Total 1019 / 1019 300 / 300 1794 / 1794 Balance 1019 / 1019 300 / 300 1794 / 1794 POC Glucose 05/01/18 06:32 POC Glucose 96 Assessment/Plan All Active Problems Abdominal aortic aneurysm, ruptured (Resolved) Cardiac arrest (Resolved) Acute kidney injury (Acute) Tachycardia (Acute) DIC (disseminated intravascular coagulation) (Acute) Ileus (Acute) HCAP (healthcare-associated pneumonia) (Acute) Unresponsive state (Acute) Change in mental status (Acute) Aspiration pneumonia (Acute) 78 year old male with below past medical history significant for ruptured AAA status post emergent repair, hospitalized for change in mental status secondary to vasovagal syndrome, complicated by E. Cloacae HCAP, anemia, admitted to TCU with debility, here for rehabilitation, strengthening, prior to disposition determination. Debility - PT/OT. Dysphagia - ST, now on pureed, nectar thick diet. Pain - Tylenol 650MG GT Q4H PRN mild pain. Bowel - Colace 100MG BID. Pneumonia vaccination - Resident family declined pneumonia, flu vaccinations. DVT prophylaxis - Heparin 5000 units SC BID. Shortness of breath - Duoneb 3ML TID, Albuterol 2.5MG Q2H PRN, Tracheostomy discontinued. Iron deficiency anemia - Ferrous Sulfate 300MG BID. GERD - Lansoprazole 30MG daily. Coronary Artery Disease - Metoprolol 12.5MG BID. Sore mouth - Peridex 15ML BID. Dry Eyes - Artificial Tears 1GTT OU BID. Skin irritation - Calmoseptine BID bilateral buttocks. Insomnia - Melatonin 3MG QHS. Nutrition - TwoCal 40ML from 8P to 8A.
--- NOTE | 2018-05-01 19:47 | PN_ITS ---
Subjective: Resident seen in room, in bed. Granddaughter at bedside. Resident fatigued from therapy today, but otherwise has no complaints. Granddaughter has no new complaints. Resident's confusion has progressively improved, only happens when he wakes up and for short time. He has rare hallucinations. Vitals/I&O's: Vital Signs Temp Pulse Resp BP Pulse Ox 96.6 F L 85 18 124/69 H 96 05/01/18 15:14 05/01/18 16:58 05/01/18 15:14 05/01/18 15:14 05/01/18 16:05 Oxygen Flow Rate (L/min) 2 Oxygen Delivery Method Room Air Weight: 75.1 kg Body Mass Index (BMI) 23.0 Intake and Output for Last 24 Hours 04/29/18 04/30/18 05/01/18 23:59 23:59 23:59 Intake Total 1019 / 1019 300 / 300 1794 / 1794 Balance 1019 / 1019 300 / 300 1794 / 1794 Laboratory Results 05/01/18 06:32: POC Glucose 96 Past Medical History Past Medical History (Chronic Problems): Chronic Problems Anoxic encephalopathy (Chronic) Hyperlipidemia (Chronic) Iron deficiency anemia (Chronic) GERD (gastroesophageal reflux disease) (Chronic) Dysphagia (Chronic) Anemia (Chronic) Vasovagal syndrome (Chronic) Coronary artery disease (Chronic) Coronary artery disease (Chronic) Hypertension (Chronic) Allergies famotidine [From Pepcid] Adverse Reaction (Verified 04/01/18 03:17) Low blood pressure metoclopramide [From Reglan] Adverse Reaction (Verified 04/01/18 03:17) Other Home Medications: Ambulatory Orders Medication Instructions Recorded Chlorhexidine 15 ml PO BID 03/28/18 Docusate Sodium [COLACE LIQUID] 100 mg GT BID 03/28/18 Ferrous Sulfate Syrup 325 mg GT BID 03/28/18 Heparin Injection 5,000 units SC BID 03/28/18 Ipratropium/Albuterol Sulfate 3 ml INHALATION TID 03/28/18 [Duoneb] Lansoprazole [Prevacid] 30 mg GT DAILY 03/28/18 Metoprolol Tartrate [Lopressor 12.5 mg GT BID 03/28/18 (beta lyric)] Nystatin 100,000 unit PO 4X/DAY 03/28/18 Propylene Glycol/Peg 400/Pf 1 each OP BID 03/28/18 [Systane 0.3-0.4% Eye Drop] Albuterol Aerosols [Ventolin 2.5 mg INHALATION Q2H PRN PRN 04/04/18 Aerosols] vial.neb. Levofloxacin [Levaquin] 500 mg GT DAILY 04/04/18 Surgical History: - - LUE surgery w/ hardware, recent emergent AAA repair, trach, PEG. Psychiatric History: No pertinent psych hx Lives: [facility] Smoking Status: Never smoker Tobacco Use: Non-smoker Alcohol: None Drugs: None - *Family History Paternal History Items: - - No marked maternal or paternal family history reported including HD, DM, CA. Maternal History Items: - - No marked maternal or paternal family history reported including HD, DM, CA. Review of Systems Constitutional: Reports: Fatigue. Denies: Chills, Fever, Weight Change HEENT: Denies: Head Aches, Sinus Congestion, Sinus Drainage Cardiovascular: Denies: Chest Pain, Palpitations Respiratory: Denies: Cough, Shortness of breath at rest, Sputum production Gastrointestinal: Denies: Abdominal Pain, Nausea, Vomiting Genitourinary: Denies: Dysuria Musculoskeletal: Denies: Joint Pain, Joint Tenderness Skin: Denies: Rash, Wounds Neurological: Denies: Numbness, Tingling, Focal weakness Psychiatric: Denies: Anxiety, Depression, Homicidal Ideations, Suicidal Ideations Hematologic/ Lymphatic: Denies: Easy Bruising, Easy Bleeding Patient Problems: Active and Suspected Problems Change in mental status (Acute) Aspiration pneumonia (Acute) - Physical Exam General: Alert, Oriented x3, Cooperative HEENT: Atraumatic, PERRLA, EOMI, Normocephalic Neck: Supple, No JVD, Negative Carotid Bruits, - - Tracheostomy covered with dry dressing. Lungs: Clear to auscultation, Normal air movement Cardiovascular: Regular rate, No murmurs Abdomen: Bowel Sounds Present, Soft, Non Tender, - - PEG tube. Extremities: No edema, Capillary Refill Less than 3 Seconds Skin: No rashes, No breakdown Musculoskeletal: No Tenderness to Palpation of Joints or Extremities Neurological: Cranial nerves II-XII grossly intact Psych/Mental Status: Normal Affect, Appropriate Vital Signs Temp Pulse Resp BP Pulse Ox 96.6 F L 85 18 124/69 H 96 05/01/18 15:14 05/01/18 16:58 05/01/18 15:14 05/01/18 15:14 05/01/18 16:05 Oxygen Flow Rate (L/min) 2 Oxygen Delivery Method Room Air Weight: 75.1 kg Body Mass Index (BMI) 23.0 Intake and Output for Last 24 Hours 04/29/18 04/30/18 05/01/18 23:59 23:59 23:59 Intake Total 1019 / 1019 300 / 300 1794 / 1794 Balance 1019 / 1019 300 / 300 1794 / 1794 POC Glucose 05/01/18 06:32 POC Glucose 96 Assessment/Plan All Active Problems Abdominal aortic aneurysm, ruptured (Resolved) Cardiac arrest (Resolved) Acute kidney injury (Acute) Tachycardia (Acute) DIC (disseminated intravascular coagulation) (Acute) Ileus (Acute) HCAP (healthcare-associated pneumonia) (Acute) Unresponsive state (Acute) Change in mental status (Acute) Aspiration pneumonia (Acute) 78 year old male with below past medical history significant for ruptured AAA status post emergent repair, hospitalized for change in mental status secondary to vasovagal syndrome, complicated by E. Cloacae HCAP, anemia, admitted to TCU with debility, here for rehabilitation, strengthening, prior to disposition determination. * Debility - PT/OT. * Dysphagia - ST, now on pureed, nectar thick diet. * Pain - Tylenol 650MG GT Q4H PRN mild pain. * Bowel - Colace 100MG BID. * Pneumonia vaccination - Resident family declined pneumonia, flu vaccinations. * DVT prophylaxis - Heparin 5000 units SC BID. * Shortness of breath - Duoneb 3ML TID, Albuterol 2.5MG Q2H PRN, Tracheostomy discontinued. * Iron deficiency anemia - Ferrous Sulfate 300MG BID. * GERD - Lansoprazole 30MG daily. * Coronary Artery Disease - Metoprolol 12.5MG BID. * Sore mouth - Peridex 15ML BID. * Dry Eyes - Artificial Tears 1GTT OU BID. * Skin irritation - Calmoseptine BID bilateral buttocks. * Insomnia - Melatonin 3MG QHS. * Nutrition - TwoCal 40ML from 8P to 8A.
[2018-05-01] MEDS: MELATONIN 3 MG TABLET PO (20:44)
[2018-05-02] MEDS: Heparin Injection (Vial) 5,000 UNIT/ML VIAL 5000 UNIT SC ×2 (05:23→17:56)
[2018-05-02] MEDS: Chlorhexidine 480 ML 15 ML PO ×2 (05:24→17:48)
[2018-05-02] MEDS: Menthol/Lanolin/Calamine/Znox 113 GM Tube 1 APPLIC TOPICAL ×2 (05:24→20:52)
[2018-05-02 05:25] VITALS: BP 102/67; PULSE 74
[2018-05-02] MEDS: Docusate Sodium 100 MG/10 ML UDC PO ×2 (05:25→17:48)
[2018-05-02] MEDS: Metoprolol Tartrate 25 MG Tablet 12.5 MG PO ×2 (05:25→17:49)
[2018-05-02 07:55] LABS: Bedside Glucose 98 mg/dL (70-110)
--- NOTE | 2018-05-02 10:49 | CASEMGMT ---
Brief interview for mental status (BIMS) and resident mood interview (PHQ-9) completed on this day. BIMS score 15. PHQ-9 score 09/30
[2018-05-02] MEDS: Ferrous Sulfate 300 MG/5 ML UDC PO ×2 (12:24→17:48)
[2018-05-02 15:37] VITALS: BP 104/58; PULSE 77; RESP 18; TEMP 35.6; O2SAT 96
[2018-05-02 17:49] VITALS: BP 104/58; PULSE 77
[2018-05-02] MEDS: MELATONIN 3 MG TABLET PO (20:52)
[2018-05-03 05:05] VITALS: BP 95/54
[2018-05-03] MEDS: Menthol/Lanolin/Calamine/Znox 113 GM Tube 1 APPLIC TOPICAL ×2 (05:11→20:09)
[2018-05-03] MEDS: Heparin Injection (Vial) 5,000 UNIT/ML VIAL 5000 UNIT SC ×2 (05:11→17:58)
[2018-05-03] MEDS: Chlorhexidine 480 ML 15 ML PO ×2 (05:16→17:52)
[2018-05-03 06:13] LABS: Absolute Lymphocyte Count 1.98 X10^3/ul (0.83-4.51); Absolute Neutrophil Count 2.7 X10^3/uL (2.0-7.7); Anion Gap 9 (5-15); BUN 40 mg/dL (7-18); Basophil# 0.02 X10^3/uL; Basophil% 0.3 % (0-1); Calcium,Total 10.4 mg/dL (8.5-10.1); Chloride 101 mmol/L (98-107); Creatinine, Serum 1.67 mg/dL (0.70-1.30); EST Glomerular Filtration Rate 43 mL/min (>60); Eosinophil# 0.48 X10^3/uL; Eosinophils% 8.4 % (0-5); Est Glom Filt Rate - Afr Amer 51 mL/min (>60); Glucose 101 mg/dL (74-106); Hematocrit 30.6 % (40-54); Lymphocyte # 1.98 X10^3/ul (4.0); Lymphocyte % 34.6 % (19-41); Mean Corp Hgb Conc 32.7 g/gl (32-36); Mean Corpuscular Hgb 29.4 pg (27.0-32.0); Mean Platelet Vol. 9.2 fl (6.2-12.0); Monocyte# 0.54 X10^3/uL; Monocyte% 9.4 % (0-10); Neutrophil # 2.71 X10^3/uL (2.7-7.7); Neutrophil % 47.3 % (47-70); Platelet Count 227 K/mm3 (150-450); Potassium 4.1 mmol/L (3.5-5.1); RBC Distribution Width CV 15.3 % (11.6-14.6); RBC Distribution Width SD 50.5 fl (35.1-43.9); Sodium Level 137 mmol/L (136-145); White Blood Count 5.7 K/mm3 (4.4-11.0)
[2018-05-03 06:25] LABS: POSITIVE COUNT NO; POSITIVE DIFFERENTIAL NO; POSITIVE MORPHOLOGY NO
[2018-05-03 06:55] VITALS: BP 122/66; PULSE 82
[2018-05-03 07:40] LABS: Bedside Glucose 103 mg/dL (70-110)
[2018-05-03] MEDS: Acetaminophen 325 MG Tablet 650 MG PO (11:06)
--- NOTE | 2018-05-03 11:14 | NURSING ---
Pt left unit with daughter for appointment with Dr. Mathews, paperwork sent with patient.
--- NOTE | 2018-05-03 12:06 | NURSING ---
Patient returned from appointment with Dr. Mathews, f/u in 3 months.
[2018-05-03] MEDS: Ferrous Sulfate 300 MG/5 ML UDC PO ×2 (12:35→17:55)
--- NOTE | 2018-05-03 15:13 | NURSING ---
Pt diaphoretic and lethargic. BP 89/39, 86, 94% RA, 16, 98.5. LSCTA, bsx4, denies pain. Low urine output of [address] Gustafson updated, NO for IV bolus of 1000mL NS x1 and then IV NS @ 60mL/hr continuously. Recheck CBC and CMP in AM. Patient and family aware.
[2018-05-03 16:00] VITALS: BP 87/49; PULSE 86; RESP 20; TEMP 35.9; O2SAT 95
[2018-05-03] MEDS: 0.9% Normal Saline 1,000 ML 500 ML IV (16:49)
[2018-05-03] MEDS: Docusate Sodium 100 MG/10 ML UDC PO (17:55)
[2018-05-03 17:58] VITALS: BP 87/49; PULSE 86
[2018-05-03] MEDS: 0.9% Normal Saline 1,000 ML 60 ML IV (18:53)
--- NOTE | 2018-05-03 18:54 | NURSING ---
Pt family wishes to hold off on appetite stimulant at this point.
[2018-05-03] MEDS: MELATONIN 3 MG TABLET PO (20:13)
[2018-05-04] VITALS (7 sets, daily range): BP systolic 85–148; BP diastolic 49–88; PULSE 78–100; RESP 19–20; TEMP 36.1–37.2; O2SAT 97–98
[2018-05-04] MEDS: Menthol/Lanolin/Calamine/Znox 113 GM Tube 1 APPLIC TOPICAL ×2 (05:13→20:24)
[2018-05-04] MEDS: Chlorhexidine 480 ML 15 ML PO (05:14)
[2018-05-04] MEDS: Heparin Injection (Vial) 5,000 UNIT/ML VIAL 5000 UNIT SC ×2 (05:15→18:01)
[2018-05-04] MEDS: Metoprolol Tartrate 25 MG Tablet 12.5 MG PO ×2 (05:20→20:01)
[2018-05-04 06:09] LABS: Absolute Lymphocyte Count 1.45 X10^3/ul (0.83-4.51); Absolute Neutrophil Count 2.1 X10^3/uL (2.0-7.7); Basophil# 0.01 X10^3/uL; Basophil% 0.2 % (0-1); Eosinophils% 9.1 % (0-5); Hematocrit 28.7 % (40-54); Hemoglobin 9.3 g/dl (13.0-16.5); Lymphocyte # 1.45 X10^3/ul (4.0); Lymphocyte % 32.9 % (19-41); Mean Corp Hgb Conc 32.4 g/gl (32-36); Mean Corpuscular Hgb 29.7 pg (27.0-32.0); Mean Corpuscular Volume 91.7 fL (80-94); Mean Platelet Vol. 9.6 fl (6.2-12.0); Monocyte# 0.45 X10^3/uL; Monocyte% 10.2 % (0-10); Neutrophil # 2.09 X10^3/uL (2.7-7.7); Neutrophil % 47.4 % (47-70); Platelet Count 217 K/mm3 (150-450); RBC Distribution Width CV 14.8 % (11.6-14.6); RBC Distribution Width SD 48.1 fl (35.1-43.9); Red Blood Count 3.13 M/mm3 (4.6-6.2); White Blood Count 4.4 K/mm3 (4.4-11.0)
[2018-05-04 06:35] LABS: POSITIVE COUNT NO; POSITIVE DIFFERENTIAL NO; POSITIVE MORPHOLOGY NO
[2018-05-04 06:42] LABS: ALB/GLOB Ratio 0.6 RATIO (0.9-2.4); AST(SGOT) 17 U/L (15-37); Alanine Aminotransfer ALT/SGPT 13 U/L (16-61); Albumin, Serum 2.8 g/dL (3.2-5.0); Alkaline Phosphatase 114 U/L (45-117); Anion Gap 6 (5-15); BUN 34 mg/dL (7-18); BUN/Creat Ratio 23.1 RATIO (10-20); Calcium,Total 9.6 mg/dL (8.5-10.1); Chloride 104 mmol/L (98-107); Creatinine, Serum 1.47 mg/dL (0.70-1.30); EST Glomerular Filtration Rate 49 mL/min (>60); Est Glom Filt Rate - Afr Amer 60 mL/min (>60); Estimated Creatinine Clearance 40.33 ml/min; Globulin 4.6 g/dL (2.2-4.2); Glucose 99 mg/dL (74-106); Potassium 4.1 mmol/L (3.5-5.1); Protein, Total 7.4 g/dL (6.4-8.2); Sodium Level 136 mmol/L (136-145)
[2018-05-04 06:51] LABS: Bedside Glucose 100 mg/dL (70-110)
[2018-05-04] MEDS: Ferrous Sulfate 300 MG/5 ML UDC PO ×2 (12:15→20:00)
[2018-05-04] MEDS: 0.9% Normal Saline 1,000 ML 60 ML IV (12:20)
--- NOTE | 2018-05-04 18:13 | NURSING ---
Pt sat up in bed by granddaughters, given mouth care and water, after which he c/o feeling nauseated and began to have some dry heaves. Cool washcloths put on forehead, vss, pt remains alert throughout episode. States he's not hungry at this time, just nauseated. Lung sounds clear, no residual from peg tube, flushes easily. Daughter here, updated on labs and pt condition, dinner held and meds held at this time.
[2018-05-04] MEDS: MELATONIN 3 MG TABLET PO ×2 (20:00)
[2018-05-04] MEDS: Docusate Sodium 100 MG/10 ML UDC PO (20:01)
[2018-05-04 23:36] LABS: Bedside Glucose 112 mg/dL (70-110)
--- NOTE | 2018-05-04 23:40 | NURSING ---
Pt daughter called out requesting attends be changed and BP checked. Aides into room to check vitals. Daughter stating pt unable to open Lt eye. This nurse and Hailey, RN into room. Left sided facial droop noted upon entrance into room. Pt able to state name but unsure of place and time. Pt unable to move left leg and right hand grasp> left. Stroke team called 1123. BP 85/49 HR 78 Blood Sugar 112. ER charge, Hospitalist and Book Coverer in room. Pt sent to CT with family at bedside. Dr. Gustafson updated. Report provided to ER. All questions answered for hospitalist.
--- NOTE | 2018-05-05 08:26 | DCINST_ITS ---
- Discharge Diagnoses Current Active Problems: Current Active and Chronic Problems (Last Reviewed 05/05/18 @ 04:49 by Genaro Galeano MD) Stroke-like symptoms (Acute) Your food should be the consistency of: Puree Your liquids should be the consistency of: [place] Thick Discharge Activity: Use Walker Weight Bearing Status: Weight bearing as tolerated Call your doctor if you observe: Fever of 101 or Higher, Inability to urinate, Inability to have a bowel movement, Shortness of breath, Chest pain, Uncontrolled pain Allergies/Adverse Reactions: Allergies famotidine [From Pepcid] Adverse Reaction (Verified 05/03/18 11:22) Low blood pressure metoclopramide [From Reglan] Adverse Reaction (Verified 05/03/18 11:22) Other Medications to take at Discharge Chlorhexidine 15 ml PO BID 03/28/18 Docusate Sodium [COLACE LIQUID] 100 mg GT BID 03/28/18 Ferrous Sulfate Syrup 300 mg GT BID 03/28/18 Heparin Injection 5,000 units SUBCUT BID 03/28/18 Ipratropium/Albuterol Sulfate [Duoneb] 3 ml INHALATION TID 03/28/18 Lansoprazole [Prevacid] 30 mg GT DAILY 03/28/18 Metoprolol Tartrate [Lopressor (beta lyric)] 12.5 mg GT BID 03/28/18 Nystatin 100,000 unit PO 4X/DAY 03/28/18 Propylene Glycol/Peg 400/Pf [Systane 0.3-0.4% Eye Drop] 1 ea OP BID 03/28/18 Albuterol Aerosols [Ventolin Aerosols] 2.5 mg INHALATION Q2H PRN PRN vial.neb. 04/04/18 0.9% Normal Saline 60 ml IV Q16H 05/05/18 Acetaminophen Liquid [Tylenol Liquid] 650 mg GT Q4H PRN PRN 05/05/18 Melatonin 3 mg PO QHS 05/05/18 Menthol/Lanolin/Calamine/Znox [Calmoseptine Ointment] 1 applic TOPICAL BID 05/05/18 Nut.sup,Spec,Lac-Free,Iron/Fos [Twocal Hn Liquid] 40 ml GT DAILY 05/05/18 Polyvinyl Alcohol [Artificial Tears] 1 drop OP Q4H PRN 05/05/18 Primary Care Physician: Jack Olmedo MD [Primary Care Provider] - Please follow up with your Primary Care Physician in: 1 week. Test Results: Test results from this visit will be discussed in further detail at your follow- up appointment, if applicable. Please Follow Up With: Dr Nelson Mathews When: July 2018 Proposed Discharge Date: 05/05/18
--- NOTE | 2018-05-05 08:26 | PCM.DC.SUM ---
Discharge Date and Diagnosis - Problem List Patient Problems: Active and Suspected Problems (Last Reviewed 05/05/18 @ 04:49 by Genaro Galeano MD) Stroke-like symptoms (Acute) Date of Admission: 04/04/18 Date of Discharge: 05/05/18 - Primary Discharge Diagnosis Active and Suspected Problems (Last Reviewed 05/05/18 @ 04:49 by Genaro Galeano MD) Stroke-like symptoms (Acute) - Secondary Discharge Diagnosis Chronic Problems (Last Reviewed 05/05/18 @ 04:49 by Genaro Galeano MD) Hyperlipidemia (Chronic) Iron deficiency anemia (Chronic) GERD (gastroesophageal reflux disease) (Chronic) Dysphagia (Chronic) Anemia (Chronic) Vasovagal syndrome (Chronic) Coronary artery disease (Chronic) Coronary artery disease (Chronic) Hypertension (Chronic) Hospital Course and Treatment Operations: None Procedures: None Summary of Care Provided: The patient is a 78 year old Male with below past medical history significant for ruptured AAA status post emergent repair, hospitalized for change in mental status secondary to vasovagal syndrome, complicated by [place] HCAP, anemia, admitted to TCU with debility, here for rehabilitation, strengthening, prior to disposition determination. 05/04/18 Left facial droop, left sided weakness, stroke team activated. Discharge to [facility] Emergency Department for evaluation, admission to hospital. Patient Problems: Active and Suspected Problems (Last Reviewed 05/05/18 @ 04:49 by Genaro Galeano MD) Stroke-like symptoms (Acute) - Physical Exam Vital Signs Temp Pulse Resp BP Pulse Ox 98.9 F 78 19 H 85/49 L 98 05/04/18 23:24 05/04/18 23:24 05/04/18 23:24 05/04/18 23:24 05/04/18 23:24 Oxygen Flow Rate (L/min) 2 Oxygen Delivery Method Room Air Weight: 68.855 kg Body Mass Index (BMI) 23.0 Finger Stick Blood Glucose 112 Intake and Output for Last 24 Hours 05/03/18 05/04/18 05/05/18 23:59 23:59 23:59 Intake Total 745 / 745 383 / 383 Balance 745 / 745 383 / 383 POC Glucose 05/04/18 23:24 POC Glucose 112 H Discharge Diet: - - Puree, [place] thick, [place] 40ML/hour. Discharge Activity: Use Walker Weight Bearing Status: Weight bearing as tolerated Call your doctor if you observe: Fever of 101 or Higher, Inability to urinate, Inability to have a bowel movement, Shortness of breath, Chest pain, Uncontrolled pain Home Medications: Medications to take at Discharge Chlorhexidine 15 ml PO BID 03/28/18 Docusate Sodium [COLACE LIQUID] 100 mg GT BID 03/28/18 Ferrous Sulfate Syrup 300 mg GT BID 03/28/18 Heparin Injection 5,000 units SUBCUT BID 03/28/18 Ipratropium/Albuterol Sulfate [Duoneb] 3 ml INHALATION TID 03/28/18 Lansoprazole [Prevacid] 30 mg GT DAILY 03/28/18 Metoprolol Tartrate [Lopressor (beta lyric)] 12.5 mg GT BID 03/28/18 Nystatin 100,000 unit PO 4X/DAY 03/28/18 Propylene Glycol/Peg 400/Pf [Systane 0.3-0.4% Eye Drop] 1 ea OP BID 03/28/18 Albuterol Aerosols [Ventolin Aerosols] 2.5 mg INHALATION Q2H PRN PRN vial.neb. 04/04/18 0.9% Normal Saline 60 ml IV Q16H 05/05/18 Acetaminophen Liquid [Tylenol Liquid] 650 mg GT Q4H PRN PRN 05/05/18 Melatonin 3 mg PO QHS 05/05/18 Menthol/Lanolin/Calamine/Znox [Calmoseptine Ointment] 1 applic TOPICAL BID 05/05/18 Nut.sup,Spec,Lac-Free,Iron/Fos [Twocal Hn Liquid] 40 ml GT DAILY 05/05/18 Polyvinyl Alcohol [Artificial Tears] 1 drop OP Q4H PRN 05/05/18 Primary Care Physician: Jack Olmedo MD [Primary Care Provider] - Please follow up with your Primary Care Physician in: 1 week. Please Follow Up With: Dr Nelson Mathews When: July 2018 Disposition: Acute care Hospital Minutes spent on discharge:: 30 Patient Condition:: Guarded Medical Necessity - Tobacco Use Smoking Status: Never smoker Tobacco Use: Non-smoker Meaningful Use Info Meaningful Use Diagnoses (Choose all that apply): None applicable
== END 2018-05-05 02:26 | disposition short-term general hospital (02) | DRG 939 ==
PROVIDERS: Admitting Provider Family Medicine Geriatric Medicine; Family Provider Family Medicine; PCP Family Medicine; Referring Provider Family Medicine Geriatric Medicine; Visit Provider Family Medicine Geriatric Medicine
DX: R53.81 Other malaise (principal); J15.8 Pneumonia due to other specified bacteria; D50.9 Iron deficiency anemia, unspecified; K21.9 Gastro-esophageal reflux disease without esophagitis; I25.10 Atherosclerotic heart disease of native coronary artery without angina pectoris; B37.9 Candidiasis, unspecified; H04.129 Dry eye syndrome of unspecified lacrimal gland; Y95 Nosocomial condition; Z86.74 Personal history of sudden cardiac arrest; E78.5 Hyperlipidemia, unspecified; I10 Essential (primary) hypertension; R13.10 Dysphagia, unspecified; R29.810 Facial weakness
CPT/HCPCS: 31502; 31720; 36415; 71045; 71046; 73100; 74018; 74230; 80048; 80053; 81001; 82962; 85025; 85730; 92507; 92526; 92610; 94640; 94762; 97110; 97163; 97167; 97530; 97535; 97802; 97803; J7030; J7050; A4216

== ENCOUNTER 2018-05-04 23:27 | Inpatient (IN) | payer MEDICARE, SELFPAY ==
--- NOTE | 2018-05-04 23:28 | CT_ITS ---
STUDY: CT BRAIN WITHOUT CONTRAST REASON FOR EXAM: Male, 78 years old. Left-sided facial droop RADIATION DOSAGE (If Supplied By Facility): CTDIvol = ( 44.99 ) mGy, DLP = ( 779.24 ) mGycm TECHNIQUE: Transaxial CT imaging of the brain was performed without administration of intravenous contrast material. Individualized dose optimization techniques were used for this CT. COMPARISON: None. FINDINGS: No evidence for shift of midline structures or mass effect, compression of the ventricles. Chronic small vessel disease. Chronic left basal ganglia lacunar infarct. Intracranial vascular calcifications. Mass in the posterior fossa. The calvarium is intact. Mucosal thickening of the ethmoid air cells and the maxillary sinuses as well as the right sphenoid sinus suggestive of sinusitis. Partial opacification of the mastoid air cells can be seen in the setting of mastoid effusion or mastoiditis. IMPRESSION: No evidence for acute intracranial hemorrhage, mass effect or acute large territory infarcts. Mild chronic small vessel disease. Chronic left basal ganglia Mucosal thickening of the ethmoid air cells and the maxillary sinuses as well as the right sphenoid sinus suggestive of sinusitis. Partial opacification of the mastoid air cells can be seen in the setting of mastoid effusion or mastoiditis N.B. : The above information has been verbally conveyed by El Malik to SUZETTE NOONAN on 05/04/2018 23:45:25 (ET). Electronically Signed: El Malik, at 23:47 EST Tel , Service support , CT/Brain/Head without Contrast
[2018-05-04 23:42] VITALS: BP 136/72; PULSE 70; RESP 20; TEMP 36.5; O2SAT 98; BMI 23.3
[2018-05-04 23:44] VITALS: BP 136/72; PULSE 83; RESP 22; O2SAT 97
--- NOTE | 2018-05-04 23:44 | CT_ITS ---
HISTORY: LEFT SIDE FACIAL DROOP TECHNIQUE: Routine [place]/brain CT angiogram protocol was performed following IV contrast. 3D reconstructions were reviewed. A radiation dose optimization technique was used for this scan. IV Contrast dosage and agent: 75 cc Isovue 370 contrast COMPARISON: Noncontrast cranial CT 05/04/2019 FINDINGS: Dominant left vertebral artery and small caliber right vertebral artery which remains patent. Bilateral carotid patency and flow. Normal contrast filling of the anterior, middle, and posterior cerebral arteries bilaterally. No evidence of vascular malformation, aneurysm, or significant stenosis. Subtotal opacification of the right sphenoid sinus. Left maxillary sinus because of thickening and partial opacification of the left ethmoid air cells. Small dependent fluid within the right maxillary sinus. Partial opacification of the mastoid air cells bilaterally. CT/CTA Head W/WO Contrast IMPRESSION: 1. Patent [place]. No intracranial aneurysm, vascular malformation, or significant stenosis. 2. Bilateral patency of the vertebral arteries with the left vertebral artery dominant. 3. Bilateral mastoiditis and paranasal sinusitis. Details above. Individualized dose optimization techniques were used for this CT. at 0049 Reported and signed by: Wolf Rubio MD N.B. : The above information has been verbally conveyed by Wolf Rubio to Dr. Laverne MD, on 05/05/2018 00:54:44 (ET). Electronically Signed: Wolf Rubio, at 0:47 EST Tel , Service support ,
--- NOTE | 2018-05-04 23:44 | CT_ITS ---
HISTORY: LEFT SIDE FACIAL DROOP TECHNIQUE: Routine carotid CT angiogram protocol was performed without and with IV contrast. Nascet criteria using the distal ICAs for comparison were used for evaluation of stenoses. 3D reconstructions were reviewed. A radiation dose optimization technique was used for this scan. IV Contrast dosage and agent: 75 cc Isovue-370 contrast COMPARISON: None FINDINGS: AORTIC ARCH AND BRANCHES: Normal anatomy, patent. RIGHT CCA: No occlusion, significant stenosis or dissection. RIGHT ICA: No occlusion, significant stenosis or dissection. LEFT CCA: No occlusion, significant stenosis or dissection. LEFT ICA: No occlusion, significant stenosis or dissection. RIGHT VERTEBRAL ARTERY: Small in caliber and patent. LEFT VERTEBRAL ARTERY: Dominant left vertebral artery which is patent BONES: Cervical spine multilevel degenerative spondylosis Subtotal opacification of the right sphenoid sinus. Left maxillary and left ethmoid sinusitis and minor dependent fluid within the right maxillary sinus. Partial opacification of the mastoid air cells bilaterally. CT/CTA Neck W/WO Contrast IMPRESSION: 1. No carotid dissection or significant carotid stenosis. 2. Bilateral patency of the vertebral arteries with the left vertebral artery dominant. 3. Paranasal sinusitis and bilateral mastoiditis. Details above Individualized dose optimization techniques were used for this CT. at 0031 Reported and signed by: Wolf Rubio MD N.B. : The above information has been verbally conveyed by Wolf Rubio to Dr. Arelis MD, on 05/05/2018 00:54:31 (ET). Electronically Signed: Wolf Rubio, at 0:29 EST Tel , Service support ,
--- NOTE | 2018-05-04 23:44 | EKG12_ITS ---
Test Reason : NEURO S/SX Blood Pressure : / mmHG Vent. Rate : 078 BPM Atrial Rate : 078 BPM P-R Int : 166 ms QRS Dur : 074 ms QT Int : 384 ms P-R-T Axes : 016 -34 -33 degrees QTc Int : 437 ms Normal sinus rhythm with sinus arrhythmia Left axis deviation Nonspecific ST and T wave abnormality Abnormal ECG Confirmed by HEATHER LOREDO, NAVEEN ([id number]), fan mail editor KATHY SILVA ([id number]) on 05/09/2018 3:34:49 PM Referred By: AVE Confirmed By:NAVEEN ROMERO MD
--- NOTE | 2018-05-04 23:44 | RAD_ITS ---
STUDY: X-RAY CHEST REASON FOR EXAM: Male, 78 years old. Neuro symptoms TECHNIQUE: Single AP portable view of the chest. COMPARISON: 04/18/2018 FINDINGS: Right medial lung base atelectasis versus infiltrate. There is no demonstrated pleural abnormality. Normal size heart. Normal mediastinum and maximilian. Normal visualized pulmonary arteries. There is atherosclerotic calcification of the aortic arch with tortuosity. There are diffuse degenerative changes of the visualized thoracic spine. Normal visualized ribs, clavicles, and shoulders. There is no demonstrated abnormality of the visualized soft tissue structures of the upper abdomen. RAD/Chest 1 View IMPRESSION: Right medial lung base atelectasis versus infiltrate Electronically Signed: Nehemiah Earl MD at 0:45 EST Tel , Service support ,
[2018-05-04 23:47] VITALS: O2SAT 98
[2018-05-04 23:50] LABS: Bedside Glucose 104 mg/dL (70-110)
[2018-05-05] VITALS (18 sets, daily range): BP systolic 94–140; BP diastolic 38–86; PULSE 74–98; RESP 16–24; TEMP 36.4–36.8; O2SAT 93–99; BMI 21.8
[2018-05-05 00:12] LABS: Absolute Lymphocyte Count 2.45 X10^3/ul (0.83-4.51); Absolute Neutrophil Count 2.1 X10^3/uL (2.0-7.7); Basophil# 0.03 X10^3/uL; Basophil% 0.6 % (0-1); Eosinophil# 0.34 X10^3/uL; Eosinophils% 6.3 % (0-5); Hematocrit 28.2 % (40-54); Hemoglobin 9.3 g/dl (13.0-16.5); Lymphocyte # 2.45 X10^3/ul (4.0); Lymphocyte % 45.2 % (19-41); Mean Corpuscular Hgb 29.5 pg (27.0-32.0); Mean Corpuscular Volume 89.5 fL (80-94); Mean Platelet Vol. 8.6 fl (6.2-12.0); Monocyte# 0.47 X10^3/uL; Monocyte% 8.7 % (0-10); Neutrophil # 2.12 X10^3/uL (2.7-7.7); Platelet Count 197 K/mm3 (150-450); RBC Distribution Width CV 15.3 % (11.6-14.6); RBC Distribution Width SD 50.3 fl (35.1-43.9); Red Blood Count 3.15 M/mm3 (4.6-6.2); White Blood Count 5.4 K/mm3 (4.4-11.0)
[2018-05-05 00:15] LABS: POSITIVE COUNT NO; POSITIVE DIFFERENTIAL NO; POSITIVE MORPHOLOGY NO
[2018-05-05 00:23] LABS: International Normalized Ratio 1.2; Prothrombin Time (Protime)PT. 15.1 SECONDS (11.7-14.9)
[2018-05-05 00:24] LABS: Partial Thromboplast Time 45.7 Seconds (24.1-36.2)
[2018-05-05 00:34] LABS: Anion Gap 6 (5-15); BUN 32 mg/dL (7-18); Calcium,Total 9.7 mg/dL (8.5-10.1); Chloride 105 mmol/L (98-107); Creatinine, Serum 1.39 mg/dL (0.70-1.30); EST Glomerular Filtration Rate 53 mL/min (>60); Est Glom Filt Rate - Afr Amer 64 mL/min (>60); Estimated Creatinine Clearance 45.22 ml/min; Glucose 103 mg/dL (74-106); Potassium 4.1 mmol/L (3.5-5.1); Sodium Level 137 mmol/L (136-145)
--- NOTE | 2018-05-05 01:04 | ED.VISSUMM ---
- ER Visit Summary Date of Service: 05/05/18 Chief Complaint: Stroke History of Present Illness: The patient is a 78 M who presents with weakness. The patient has an extensive medical history. 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 He receives tube feeds. He has a history of coronary disease. He has also been having multiple transient episodes of unresponsiveness which have ultimately been attributed to vasovagal syncope. Tonight in the transitional care unit he was noted to have left-sided weakness and left-sided facial droop. He has slurred speech although family states this is near baseline. A stroke team was called. He went to CT and the hospitalist had also spoken to neurology prior to the patient coming to the emergency department here. Family notes that his symptoms do appear to be improving. Physical Examination: Afebrile vitals are normal Moist mucous membranes Heart regular rate and rhythm Lungs are clear Abdomen soft NIH stroke scale initially 6, he missed both questions he has left facial droop and left leg weakness and mild dysarthria Test Results: CT of the head showed no acute pathology. CTAs of the head and neck showed no dissection stenosis or large vessel occlusion. Labs notable for hemoglobin of 9.3 which appears to be near his baseline. Creatinine of 1.39 which is similar to prior labs. INR 1.2. Troponin negative. Chest x-ray shows right medial lung atelectasis versus infiltrate. Emergency Department Course and Treatment: Workup unremarkable as above. Patient does not meet any absolute contraindications to TPA. However in discussion with the neurologist we do note that he would be high risk due to his recent surgeries including tracheostomy, PEG tube, AAA repair. However these were not within the time frame to be an absolute contraindication. I discussed risks and benefits with the patient and family. Family notes that his symptoms do seem to be rapidly and significantly improving. Therefore TPA was not administered based on improving symptoms and TPA risks in this patient. Patient discussed with the hospitalist will be admitted. I do not believe his chest x-ray is related to the pneumonia as he does not have leukocytosis tachycardia fever cough. Treatment Plan: [] Disposition: Admit Impression: Stroke This note was generated with [employer] dictation software. It may contain incorrect words, spelling, and punctuation that were not noted in review of the chart prior to signing ED Disposition - Plan for ED Patient: Chief Complaint: Neuro S/Sx Referrals: Jack Olmedo MD [Primary Care Provider] -
--- NOTE | 2018-05-05 02:15 | ECHOD_ITS ---
Reason For Study: TIA/CVA Procedure This was a 2D Doppler, Color Flow transthoracic echocardiogram. Technically difficult study due to patient condition. The study was technically difficult. Exam performed portable in patient room. Left Ventricle Normal LV size. Left ventricular systolic function is normal. The estimated ejection fraction is 60 %. No evidence for diastolic dysfunction. No regional wall motion abnormalities noted. Right Ventricle Normal RV size. Normal systolic function. Atria Normal left atrium. Normal right atrium. No doppler evidence for ASD. Mitral Valve There is no mitral annular calcification. Normal mitral valve. Trivial mitral valve insufficiency. Tricuspid Valve Normal tricuspid valve. Trivial tricuspid valve insufficiency. Unable to estimate RV systolic pressure/pulmonary artery pressure due to technically difficult study. Aortic Valve Trisinus/trileaflet aortic valve. Normal aortic valve. Pulmonic Valve The pulmonic valve is not well visualized. Trivial pulmonic valve insufficiency. Great Vessels Normal sized aortic root. Pericardium/Pleural No pericardial effusion. Medication Performed a rapid injection of agitated mix of 9 cc saline and 1cc air to assess for atrial septal defect. MMode/2D Measurements & Calculations LVIDd: 4.8 cm IVSd: 1.3 cm Ao root diam: 4.1 cm LVIDs: 3.5 cm LVPWd: 1.00 cm LA dimension: 3.2 cm RVDd: 3.2 cm FS: 28.4 % Time Measurements MV dec time: 0.23 sec Doppler Measurements & Calculations MV E max hu: 53.8 cm/sec Lat Peak E' Hu: 10.1 cm/sec Med Peak E' Hu: 7.5 cm/sec MV A max hu: 105.9 cm/sec E/E' lat: 5.3 E/E' med: 7.1 MV E/A: 0.51 MV V2 max: 114.6 cm/sec MV P1/2t max hu: 56.9 cm/sec Ao V2 max: 127.3 cm/sec MV max P.3 mmHg MV P1/2t: 83.6 msec Ao max P.5 mmHg MV V2 mean: 55.8 cm/sec Ao V2 mean: 82.1 cm/sec MV mean P.5 mmHg MV dec slope: 199.5 cm/sec2 Ao mean P.1 mmHg MV V2 VTI: 20.1 cm MVA(P1/2t): 2.6 cm2 Ao V2 VTI: 23.7 cm LV V1 max: 97.1 cm/sec PA V2 max: 85.7 cm/sec LV V1 max P.8 mmHg LV V1 mean P.9 mmHg LV V1 mean: 64.3 cm/sec LV V1 VTI: 21.9 cm Interpretation Summary The study was technically difficult. Left ventricular systolic function is normal. The estimated ejection fraction is 60 %. Trivial mitral valve insufficiency. Trivial tricuspid valve insufficiency. Trivial pulmonic valve insufficiency. Unable to estimate RV systolic pressure/pulmonary artery pressure due to technically difficult study. No evidence for diastolic dysfunction. Ordering Physician: Genaro Galeano Referring Physician: CLIVE BARRIENTOS Performed By: Gus Mena RCS
[2018-05-05 03:51] LABS: Bedside Glucose 93 mg/dL (70-110)
[2018-05-05] MEDS: 0.9% Normal Saline 1,000 ML 100 ML IV (03:53)
[2018-05-05] MEDS: Atorvastatin Calcium 40 MG Tablet GT ×2 (03:53→22:29)
--- NOTE | 2018-05-05 03:53 | HP.PCM_ITS ---
Problem List (1) Stroke-like symptoms Status: Acute History of Present Illness Date of Admission: 05/05/18 Chief Complaint: altered mental status The patient is a 78 year old M with a significant history of metallic jerry in his left shoulder; Factor V Liden deficiency; CAD s/p stent; abdominal aortic aneurysm rupture status post repair and with complications of surgery that led to intubation and subsequent trach and PEG tube; cardiac arrest; multiple episodes of unresponsiveness that was attributed to vagal stimulation from getting nauseous from tube feeding; tremor that was attributed to previous use of Reglan; hypertension; hyperlipidemia; iron deficiency anemia; that was transferred from the TCU to the ED because of strokelike symptoms. Patient was seen normal about 140 minutes before his stroke-liek symptoms was observed. His family reported that patient had a change in mental status and his left eye appeared closed. TC nurses reported that patient had left facial droop and decreased hand tank terminal gauger on the left side. Stroke alert was called and after examination patient was sent for a CT of his head. Per neurologist recommendation CT of his head and CTA of his head and neck was obtained. Subsequently patient was sent to the emergency department. CTA of head and neck was unremarkable for any stenosis or vascular disease. CT of his head was unremarkable for any hemorrhage. At the emergency department patient had an initial NIH of 6. While at emergency department patient, family who were present confirmed the patient was improving considerable. Past Medical History Past Medical History (Chronic Problems): Chronic Problems (Last Reviewed 05/05/18 @ 04:49 by Genaro Galeano MD) Hyperlipidemia (Chronic) Iron deficiency anemia (Chronic) GERD (gastroesophageal reflux disease) (Chronic) Dysphagia (Chronic) Anemia (Chronic) Vasovagal syndrome (Chronic) Coronary artery disease (Chronic) Coronary artery disease (Chronic) Hypertension (Chronic) Medical History: Medical History (Last Reviewed 05/05/18 @ 04:49 by Genaro Galeano MD) Abdominal aortic aneurysm, ruptured (Resolved) I71.3 01/11/2018 Cardiac arrest (Resolved) I46.9 Anoxic encephalopathy (Resolved) G93.1 Hyperlipidemia (Chronic) E78.5 Acute kidney injury (Acute) N17.9 Tachycardia (Resolved) R00.0 DIC (disseminated intravascular coagulation) (Resolved) D65 Ileus (Resolved) K56.7 Iron deficiency anemia (Chronic) D50.9 GERD (gastroesophageal reflux disease) (Chronic) K21.9 Dysphagia (Chronic) R13.10 HCAP (healthcare-associated pneumonia) (Resolved) J18.9 Anemia (Chronic) D64.9 Unresponsive state (Resolved) R41.89 Change in mental status (Acute) R41.82 Vasovagal syndrome (Chronic) R55 Aspiration pneumonia (Acute) J69.0 Coronary artery disease (Chronic) I25.10 Coronary artery disease (Chronic) I25.10 Hypertension (Chronic) I10 Allergies famotidine [From Pepcid] Adverse Reaction (Verified 05/03/18 11:22) Low blood pressure metoclopramide [From Reglan] Adverse Reaction (Verified 05/03/18 11:22) Other Home Medications: Ambulatory Orders Medication Instructions Recorded Chlorhexidine 15 ml PO BID 03/28/18 Docusate Sodium [COLACE LIQUID] 100 mg GT BID 03/28/18 Ferrous Sulfate Syrup 300 mg GT BID 03/28/18 Heparin Injection 5,000 units SUBCUT BID 03/28/18 Ipratropium/Albuterol Sulfate 3 ml INHALATION TID 03/28/18 [Duoneb] Lansoprazole [Prevacid] 30 mg GT DAILY 03/28/18 Metoprolol Tartrate [Lopressor 12.5 mg GT BID 03/28/18 (beta lyric)] Nystatin 100,000 unit PO 4X/DAY 03/28/18 Propylene Glycol/Peg 400/Pf 1 ea OP BID 03/28/18 [Systane 0.3-0.4% Eye Drop] Albuterol Aerosols [Ventolin 2.5 mg INHALATION Q2H PRN PRN 04/04/18 Aerosols] vial.neb. 0.9% Normal Saline 60 ml IV Q16H 05/05/18 Acetaminophen Liquid [Tylenol 650 mg GT Q4H PRN PRN 05/05/18 Liquid] Melatonin 3 mg PO QHS 05/05/18 Menthol/Lanolin/Calamine/Znox 1 applic TOPICAL BID 05/05/18 [Calmoseptine Ointment] Nut.sup,Spec,Lac-Free,Iron/Fos 40 ml GT DAILY 05/05/18 [Twocal Hn Liquid] Polyvinyl Alcohol [Artificial 1 drop OP Q4H PRN 05/05/18 Tears] Surgical History: Surgical History (Last Reviewed 05/05/18 @ 04:49 by Genaro Galeano MD) H/O abdominal aortic aneurysm repair Z98.890 7 surgeries related to this, also had a wound vac H/O heart artery stent Z95.5 H/O hernia repair Z98.890, Z87.19 Hx of cholecystectomy Z90.49 Left shoulder surgery 1998? 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 Psychiatric History: No pertinent psych hx Lives: - - Was at the Transitional care unit Smoking Status: Never smoker - *Family History Paternal Family History: Family History (Last Reviewed 05/05/18 @ 04:50 by Genaro Galeano MD) Sister Factor 5 Leiden mutation, heterozygous Aneurysm Sister Aneurysm History Items: - - No marked maternal or paternal family history reported including HD, DM, CA. Maternal Family History: Family History (Last Reviewed 05/05/18 @ 04:50 by Genaro Galeano MD) Sister Factor 5 Leiden mutation, heterozygous Aneurysm Sister Aneurysm History Items: - - No marked maternal or paternal family history reported including HD, DM, CA. Review of Systems Constitutional: Reports: Weakness HEENT: Denies: Head Aches, Sinus Congestion, Sinus Drainage Cardiovascular: Denies: Chest Pain, Palpitations Respiratory: Denies: Cough, Shortness of breath at rest, Sputum production Gastrointestinal: Reports: Nausea. Denies: Abdominal Pain, Vomiting Genitourinary: Denies: Dysuria Musculoskeletal: Denies: Joint Pain, Joint Tenderness Skin: Denies: Rash, Wounds Neurological: Reports: Focal weakness - Decrease left hand tank terminal gauger. Denies: Numbness, Tingling Psychiatric: Denies: Anxiety, Depression, Homicidal Ideations, Suicidal Ideations Hematologic/ Lymphatic: Denies: Easy Bruising, Easy Bleeding VTE Information - Inpt Only VTE Present on Admission: No VTE Mechan Device Prophylaxis: None VTE Pharm Prophylaxis ordered?: Yes Patient Problems: Active and Suspected Problems (Last Reviewed 05/05/18 @ 04:49 by Genaro Galeano MD) Stroke-like symptoms (Acute) - Physical Exam General: Alert, Cooperative, - - Oriented to slef. Initially patient thought that he was at [facility]. Patient did not know the month. He thought that the month was May while it was the later part of April. HEENT: Atraumatic, Normocephalic Neck: Supple, No JVD, Negative Carotid Bruits Lungs: Clear to auscultation, Normal air movement Cardiovascular: Regular rate, No murmurs Abdomen: Bowel Sounds Present, Soft, Non Tender, - - Healed abdominal scars Extremities: No edema, Capillary Refill Less than 3 Seconds Skin: No rashes, No breakdown Musculoskeletal: No Muscle Wasting Neurological: Cranial nerves II-XII grossly intact, Facial Droop - Mild facial droop at the left mouth., - - No dysarthria. Can lift bilateral legs marginally with Left side worse than right side. He has had knee replacement of the left side. Yet thigh strength in right side is 5/5; and 4/5 at the left side. Can smile. Can open and close eye lid. Can not count fingers accurately but patient started that he uses glasses and have eye problem for which he has to see an opthalmologist. Grossly patient can see. Tremors with finger to nose test taht patient attributes to previous reglan use. Psych/Mental Status: Normal Affect, Appropriate Vital Signs Temp Pulse Resp BP Pulse Ox 97.8 F 81 16 102/59 L 96 05/05/18 02:22 05/05/18 02:22 05/05/18 02:22 05/05/18 02:22 05/05/18 02:22 Oxygen Delivery Method Room Air Weight: 69 kg Body Mass Index (BMI) 21.8 Finger Stick Blood Glucose 104 Laboratory Tests Past 24 Hrs 05/04/18 05/04/18 05/04/18 23:45 23:45 23:45 WBC 5.4 RBC 3.15 L Hgb 9.3 L Hct 28.2 L MCV 89.5 MCH 29.5 MCHC 33.0 RDW 15.3 H RDW Differential 50.3 H Plt Count 197 MPV 8.6 Immature Gran % (Auto) 0.200 Neut % (Auto) 39.0 L Lymph % (Auto) 45.2 H [place] % (Auto) 8.7 Eos % (Auto) 6.3 H Baso % (Auto) 0.6 Absolute Neuts (auto) 2.1 Absolute Lymphs (auto) 2.45 Total Counted Not Reportable PT 15.1 H INR 1.2 APTT 45.7 H Sodium 137 Potassium 4.1 Chloride 105 Carbon Dioxide 26.0 Anion Gap 6 BUN 32 H Creatinine 1.39 H Estim Creat Clear Calc 45.22 Est GFR (MDRD) Af Amer 64 Est GFR (MDRD) Non-Af 53 L BUN/Creatinine Ratio 23.0 H Glucose 103 Hemoglobin A1c Calcium 9.7 Troponin I < 0.015 Triglycerides Cholesterol LDL Cholesterol VLDL Cholesterol HDL Cholesterol 05/04/18 05/05/18 05/05/18 23:45 02:35 02:35 WBC RBC Hgb Hct MCV MCH MCHC RDW RDW Differential Plt Count MPV Immature Gran % (Auto) Neut % (Auto) Lymph % (Auto) [place] % (Auto) Eos % (Auto) Baso % (Auto) Absolute Neuts (auto) Absolute Lymphs (auto) Total Counted PT INR APTT Sodium Pending Potassium Pending Chloride Pending Carbon Dioxide Pending Anion Gap Pending BUN Pending Creatinine Pending Estim Creat Clear Calc Est GFR (MDRD) Af Amer Pending Est GFR (MDRD) Non-Af Pending BUN/Creatinine Ratio Pending Glucose Pending Hemoglobin A1c Pending Calcium Pending Troponin I < 0.015 Triglycerides Pending Cholesterol Pending LDL Cholesterol Pending VLDL Cholesterol Pending HDL Cholesterol Pending POC Glucose 05/05/18 05/04/18 03:30 23:44 POC Glucose 93 104 Assessment/Plan All Active Problems (Last Reviewed 05/05/18 @ 04:49 by Genaro Galeano MD) Stroke-like symptoms (Acute) Abdominal aortic aneurysm, ruptured (Resolved) Cardiac arrest (Resolved) Anoxic encephalopathy (Resolved) Acute kidney injury (Acute) Tachycardia (Resolved) DIC (disseminated intravascular coagulation) (Resolved) Ileus (Resolved) HCAP (healthcare-associated pneumonia) (Resolved) Unresponsive state (Resolved) Change in mental status (Acute) Aspiration pneumonia (Acute) The patient is a 78 year old M with a significant history of metallic jerry in his left shoulder; Factor V Liden deficiency; CAD s/p stent; abdominal aortic aneurysm rupture status post repair and with complications of surgery that led to intubation and subsequent trach and PEG tube; cardiac arrest; multiple episodes of unresponsiveness that was attributed to vagal stimulation from getting nauseous from tube feeding; tremor that was attributed to previous use of Reglan; hypertension; hyperlipidemia; iron deficiency anemia; that was transferred from the TCU to the ED because of strokelike symptoms but noted to have improvement in his stroke-like symptoms. Strokelike symptoms This is likely a TIA. Patient has improved dramatically from when he was at the TCU at the time of stroke alert. His dysarthria has resolved. His left mouth droop has improved with only very slight mouth droop present. He is more alert and can hold a conversation. At the time of stroke alert patient could not hold a conversation. Patient has a coronary stent and MRI would not be ordered. Moreover patient is rapidly improving and MRI would not change any management. Echocardiogram ordered. Fasting lipids and A1c ordered. Patient passed dysphagia screen. Aspirin and high intensity statin started. PT, OT and speech therapy to work with patient. Home metoprolol discontinued for permissive hypertension. At the TCU after receiving his evening metoprolol his systolic blood pressure was about 88. He was on normal saline 60 mL's per hour at a TCU for hydration. We will continue gentle fluid at 75 mL's Normal Saline per hour for 1 L. TERENCE His baseline creatinine is about 1.25. On 05/03/2018 his creatinine was 1.67;. His BUN is also above baseline. His BUN over creatinine is more than 20. Likely TERENCE is prerenal in etiology from hypovolemia. Of note his creatinine has been improving. His creatinine at the emergency department was 1.39. Continue gentle IV hydration as above. Avoid nephrotoxic's. Debility After his aortic aneurysm repair patient has been at the rehab. PT, OT and ST to continue with the patient. Trach care once a day. Feeding After his aortic aneurysm rupture patient ended up requiring tube feeding. At the TCU patient was getting tube feeding 2Cal 40 mL's per hour from 8 PM to 8 AM. Because of reported nausea will cutdown his nightly tube feeding to 20 mL's per hour. Patient diet was advanced to mechanical soft while at the TCU. We will continue cardiac mechanical soft diet and liquids per Speech recommendation. DVT Heparin subcutaneous continued. Code Visit OBSV E&M: [id number] Initial observation care L3
[2018-05-05 04:24] LABS: Anion Gap 11 (5-15); BUN 31 mg/dL (7-18); BUN/Creat Ratio 21.7 RATIO (10-20); Calcium,Total 9.9 mg/dL (8.5-10.1); Chloride 104 mmol/L (98-107); Cholesterol 140 mg/dL (200); Creatinine, Serum 1.43 mg/dL (0.70-1.30); EST Glomerular Filtration Rate 51 mL/min (>60); Est Glom Filt Rate - Afr Amer 62 mL/min (>60); Estimated Creatinine Clearance 41.55 ml/min; Glucose 88 mg/dL (74-106); High Density Lipoprotein 36 mg/dL; Potassium 4.3 mmol/L (3.5-5.1); Sodium Level 141 mmol/L (136-145); Triglycerides 174 mg/dL; Very Low Density Lipoprotein 35 mg/dL (5-40)
--- NOTE | 2018-05-05 06:56 | NURSING ---
Bladder scanned patient this AM due to lack of output and feels like he needs to void. scanned for 13 cc and 15 cc. Total of 28 cc. Will continue to monitor.
[2018-05-05 08:30] LABS: Hemoglobin A1c 4.5 % (4.2-6.3)
[2018-05-05] MEDS: Glycerin/Hypromellose/PEG400 15 ml Bottle 1 DRP EACH EYE ×2 (09:44→22:26)
[2018-05-05] MEDS: Ferrous Sulfate 300 MG/5 ML UDC GT ×2 (09:45→22:29)
[2018-05-05] MEDS: Docusate Sodium 100 MG/10 ML UDC GT ×2 (09:45→22:30)
[2018-05-05] MEDS: Heparin Injection (Vial) 5,000 UNIT/ML VIAL 5000 UNIT SC ×2 (09:47→22:29)
[2018-05-05] MEDS: Menthol/Lanolin/Calamine/Znox 113 GM Tube 1 APPLIC TOPICAL ×2 (09:48→22:27)
[2018-05-05] MEDS: Aspirin 81 MG TAB.CHEW GT (09:56)
--- NOTE | 2018-05-05 10:14 | PCM.CONS.GEN ---
Reason for Consult Date of Consultation: 05/05/18 Reason for Consultation: tia History of Present Illness: 78 yo male was on tcu yesterday, at 11pm noted left facial droop, improved over the ensuing hours, son who is at bedside notes essentially no facial droop by 3am. he wonders if left leg is still weak however. originally hosptilized 01/11/18 due to ruptured AAA, underwent surgery and has had a prolonged hospitalization with multiple complications as below. when his he had his anuerysmal rupture he underwent cpr for entire helicopter ride from [facility] to [facility]. son notes progressive improvement in cognition since tcu admission a few weeks ago. also intermittent confusion. 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 Patient was seen normal about 140 minutes before his stroke-liek symptoms was observed. His family reported that patient had a change in mental status and his left eye appeared closed. TC nurses reported that patient had left facial droop and decreased hand field care manager on the left side. Stroke alert was called and after examination patient was sent for a CT of his head. Per neurologist recommendation CT of his head and CTA of his head and neck was obtained. Subsequently patient was sent to the emergency department. CTA of head and neck was unremarkable for any stenosis or vascular disease. CT of his head was unremarkable for any hemorrhage. At the emergency department patient had an initial NIH of 6. While at emergency department patient, family who were present confirmed the patient was improving considerable. Past Medical History Past Medical History (Chronic Problems): Chronic Problems (Last Reviewed 05/05/18 @ 11:10 by Abdullahi Styles MD) Hyperlipidemia (Chronic) Iron deficiency anemia (Chronic) GERD (gastroesophageal reflux disease) (Chronic) Dysphagia (Chronic) Anemia (Chronic) Vasovagal syndrome (Chronic) Coronary artery disease (Chronic) Coronary artery disease (Chronic) Hypertension (Chronic) Medical History: Medical History (Last Reviewed 05/05/18 @ 11:10 by Abdullahi Styles MD) Abdominal aortic aneurysm, ruptured (Resolved) I71.3 01/11/2018 Cardiac arrest (Resolved) I46.9 Anoxic encephalopathy (Resolved) G93.1 Hyperlipidemia (Chronic) E78.5 Acute kidney injury (Acute) N17.9 Tachycardia (Resolved) R00.0 DIC (disseminated intravascular coagulation) (Resolved) D65 Ileus (Resolved) K56.7 Iron deficiency anemia (Chronic) D50.9 GERD (gastroesophageal reflux disease) (Chronic) K21.9 Dysphagia (Chronic) R13.10 HCAP (healthcare-associated pneumonia) (Resolved) J18.9 Anemia (Chronic) D64.9 Unresponsive state (Resolved) R41.89 Change in mental status (Acute) R41.82 Vasovagal syndrome (Chronic) R55 Aspiration pneumonia (Acute) J69.0 Coronary artery disease (Chronic) I25.10 Coronary artery disease (Chronic) I25.10 Hypertension (Chronic) I10 Allergies famotidine [From Pepcid] Adverse Reaction (Verified 05/03/18 11:22) Low blood pressure metoclopramide [From Reglan] Adverse Reaction (Verified 05/03/18 11:22) Other Home Medications: Ambulatory Orders Medication Instructions Recorded Chlorhexidine 15 ml PO BID 03/28/18 Docusate Sodium [COLACE LIQUID] 100 mg GT BID 03/28/18 Ferrous Sulfate Syrup 300 mg GT BID 03/28/18 Heparin Injection 5,000 units SUBCUT BID 03/28/18 Ipratropium/Albuterol Sulfate 3 ml INHALATION TID 03/28/18 [Duoneb] Lansoprazole [Prevacid] 30 mg GT DAILY 03/28/18 Metoprolol Tartrate [Lopressor 12.5 mg GT BID 03/28/18 (beta lyric)] Nystatin 100,000 unit PO 4X/DAY 03/28/18 Propylene Glycol/Peg 400/Pf 1 ea OP BID 03/28/18 [Systane 0.3-0.4% Eye Drop] Albuterol Aerosols [Ventolin 2.5 mg INHALATION Q2H PRN PRN 04/04/18 Aerosols] vial.neb. 0.9% Normal Saline 60 ml IV Q16H 05/05/18 Acetaminophen Liquid [Tylenol 650 mg GT Q4H PRN PRN 05/05/18 Liquid] Melatonin 3 mg PO QHS 05/05/18 Menthol/Lanolin/Calamine/Znox 1 applic TOPICAL BID 05/05/18 [Calmoseptine Ointment] Nut.sup,Spec,Lac-Free,Iron/Fos 40 ml GT DAILY 05/05/18 [Twocal Hn Liquid] Polyvinyl Alcohol [Artificial 1 drop OP Q4H PRN 05/05/18 Tears] Surgical History: Surgical History (Last Reviewed 05/05/18 @ 11:11 by Abdullahi Styles MD) H/O abdominal aortic aneurysm repair Z98.890 7 surgeries related to this, also had a wound vac H/O heart artery stent Z95.5 H/O hernia repair Z98.890, Z87.19 Hx of cholecystectomy Z90.49 Left shoulder surgery 1998? 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 Psychiatric History: No pertinent psych hx Lives: - - Was at the Transitional care unit. prior to january lived independently with his . Smoking Status: Never smoker - *Family History Paternal Family History: Family History (Last Reviewed 05/05/18 @ 11:12 by Abdullahi Styles MD) Sister Factor 5 Leiden mutation, heterozygous Aneurysm Sister Aneurysm History Items: - - No marked maternal or paternal family history reported including HD, DM, CA. Maternal Family History: Family History (Last Reviewed 05/05/18 @ 11:12 by Abdullahi Styles MD) Sister Factor 5 Leiden mutation, heterozygous Aneurysm Sister Aneurysm History Items: - - No marked maternal or paternal family history reported including HD, DM, CA. Review of Systems Neurological: Reports: Balance problems, Focal weakness Patient Problems: Active and Suspected Problems (Last Reviewed 05/05/18 @ 11:10 by Abdullahi Styles MD) Stroke-like symptoms (Acute) - Physical Exam General: Alert, Cooperative, No apparent distress - doesnt know location or month, knows president HEENT: Atraumatic, PERRLA, EOMI Neurological: Cranial nerves II-XII grossly intact, Deep Tendon Reflexes 2+/4 and Symmetrical Psych/Mental Status: Flat Affect Vital Signs Temp Pulse Resp BP Pulse Ox 36.6 C 83 16 113/71 97 05/05/18 10:00 05/05/18 10:00 05/05/18 10:00 05/05/18 10:00 05/05/18 10:00 Oxygen Delivery Method Room Air Weight: 69 kg Body Mass Index (BMI) 21.8 Finger Stick Blood Glucose 104 Intake and Output for Last 24 Hours 05/03/18 05/04/18 05/05/18 23:59 23:59 23:59 Intake Total 228 / 228 Balance 228 / 228 Laboratory Tests Past 24 Hrs 05/04/18 05/04/18 05/04/18 23:45 23:45 23:45 WBC 5.4 RBC 3.15 L Hgb 9.3 L Hct 28.2 L MCV 89.5 MCH 29.5 MCHC 33.0 RDW 15.3 H RDW Differential 50.3 H Plt Count 197 MPV 8.6 Immature Gran % (Auto) 0.200 Neut % (Auto) 39.0 L Lymph % (Auto) 45.2 H [place] % (Auto) 8.7 Eos % (Auto) 6.3 H Baso % (Auto) 0.6 Absolute Neuts (auto) 2.1 Absolute Lymphs (auto) 2.45 Total Counted Not Reportable PT 15.1 H INR 1.2 APTT 45.7 H Sodium 137 Potassium 4.1 Chloride 105 Carbon Dioxide 26.0 Anion Gap 6 BUN 32 H Creatinine 1.39 H Estim Creat Clear Calc 45.22 Est GFR (MDRD) Af Amer 64 Est GFR (MDRD) Non-Af 53 L BUN/Creatinine Ratio 23.0 H Glucose 103 Hemoglobin A1c Calcium 9.7 Troponin I < 0.015 Triglycerides Cholesterol LDL Cholesterol VLDL Cholesterol HDL Cholesterol 05/04/18 05/05/18 05/05/18 23:45 02:35 02:35 WBC RBC Hgb Hct MCV MCH MCHC RDW RDW Differential Plt Count MPV Immature Gran % (Auto) Neut % (Auto) Lymph % (Auto) [place] % (Auto) Eos % (Auto) Baso % (Auto) Absolute Neuts (auto) Absolute Lymphs (auto) Total Counted PT INR APTT Sodium 141 Potassium 4.3 Chloride 104 Carbon Dioxide 26.0 Anion Gap 11 BUN 31 H Creatinine 1.43 H Estim Creat Clear Calc 41.55 Est GFR (MDRD) Af Amer 62 Est GFR (MDRD) Non-Af 51 L BUN/Creatinine Ratio 21.7 H Glucose 88 Hemoglobin A1c 4.5 Calcium 9.9 Troponin I < 0.015 Triglycerides 174 Cholesterol 140 LDL Cholesterol 69 VLDL Cholesterol 35 HDL Cholesterol 36 L POC Glucose 05/05/18 05/04/18 03:30 23:44 POC Glucose [address] reviewed, atrophy. CTA reviewed no significant stenosis in the neck Current Medications Generic Name Dose Route Start Last Admin Trade Name Freq PRN Reason Stop Dose Admin Acetaminophen 650 mg 05/05/18 02:15 Tylenol Liquid GT Q4H PRN PRN PAIN Albuterol Sulfate 2.5 mg 05/05/18 02:18 Ventolin Aerosols INHALATION Q2H PRN PRN SHORTNESS OF BREATH Albuterol/Ipratropium 3 ml 05/05/18 04:01 Duoneb INHALATION Q6H.RT PRN SOB &/OR WHEEZING Aspirin 81 mg 05/05/18 08:00 05/05/18 09:56 Aspirin, Baby GT 81 mg DAILY@0800 AMBIKA Administration Atorvastatin Calcium 40 mg 05/05/18 02:30 05/05/18 03:53 Lipitor GT 40 mg QHS AMBIKA Administration Calamine/Phenol 1 applic 05/05/18 10:00 05/05/18 09:48 Calmoseptine Ointment TOPICAL 1 applicatio BID AMBIKA Administration Protocol Chlorhexidine Gluconate 15 ml 05/05/18 10:00 05/05/18 09:45 Peridex PO Not Given BID AMBIKA Docusate Sodium 100 mg 05/05/18 10:00 05/05/18 09:45 Colace Syrup GT 100 mg BID AMBIKA Administration Ferrous Sulfate 300 mg 05/05/18 10:00 05/05/18 09:45 Ferrous Sulfate Syrup GT 300 mg BID AMBIKA Administration Heparin Sodium (Porcine) 5,000 unit 05/05/18 10:00 05/05/18 09:47 Heparin Na SC 5,000 unit Q12 AMBIKA Administration Sodium Chloride 1,000 mls @ 100 mls/hr 05/05/18 03:20 05/05/18 03:53 IV 05/05/18 13:19 100 mls/hr .Q10H AMBIKA Administration Lansoprazole 30 mg 05/05/18 10:00 05/05/18 09:48 Prevacid GT 30 mg DAILY AMBIKA Administration Magnesium Hydroxide 30 ml 05/05/18 02:45 Milk Of Magnesia GT DAILY PRN Constipation Melatonin 3 mg 05/05/18 22:00 Melatonin GT QHS AMBIKA Non-Formulary Medication 40 ml 05/05/18 20:00 05/05/18 05:22 Nut.Sup,Spec,Lac-Free,Iron/Fos GT 40 ml DAILY@1999 AMBIKA Administration Sodium Chloride 5 - 15 ml 05/05/18 02:35 IV UD PRN SALINE FLUSH Assessment/Plan All Active Problems (Last Reviewed 05/05/18 @ 11:10 by Abdullahi Styles MD) Stroke-like symptoms (Acute) Abdominal aortic aneurysm, ruptured (Resolved) Cardiac arrest (Resolved) Anoxic encephalopathy (Resolved) Acute kidney injury (Acute) Tachycardia (Resolved) DIC (disseminated intravascular coagulation) (Resolved) Ileus (Resolved) HCAP (healthcare-associated pneumonia) (Resolved) Unresponsive state (Resolved) Change in mental status (Acute) Aspiration pneumonia (Acute) TIA, superimposed on encephalopathy likely due to OPAL in january consequent to AAA rupture, possible hypotension asa mri if able tele pt/ot/sp await echo
--- NOTE | 2018-05-05 10:28 | CASEMGMT ---
Addendum entered by Renetta Archer 05/05/18 15:42: Green sheet on chart to return to TCU. Renetta LIU Original Note: Patient is from TCU. Per Nicole he can return when ready. However, if patient had a Stroke Rehab may also be an option. SW to follow. Renetta MENDEZ MSW
--- NOTE | 2018-05-05 10:31 | EKG12_ITS ---
Test Reason : Blood Pressure : / mmHG Vent. Rate : 080 BPM Atrial Rate : 080 BPM P-R Int : 120 ms QRS Dur : 080 ms QT Int : 418 ms P-R-T Axes : 011 -23 021 degrees QTc Int : 482 ms Sinus rhythm with occasional Premature ventricular complexes Leftward axis Confirmed by HEATHER LOREDO, NAVEEN ([id number]), television news video editor KATHY SILVA ([id number]) on 05/09/2018 3:45:49 PM Referred By: ARRON Confirmed By:NAVEEN ROMERO MD
[2018-05-05 13:01] LABS: Bedside Glucose 110 mg/dL (70-110)
--- NOTE | 2018-05-05 13:09 | MRI_ITS ---
STUDY: MRI BRAIN WITH AND WITHOUT CONTRAST REASON FOR EXAM: Male, 78 years old. Patient unresponsive TECHNIQUE: Standardized multiplanar fat and water weighted pulse sequences were obtained. 7 ml of Gadavist contrast material was administered intravenously for the contrast portion of the examination. COMPARISON: CT of the brain on May 04, 2018 FINDINGS: Moderate atrophy and mild periventricular white matter ischemic changes.. Old lacunar infarct in the body of the right caudate nucleus Normal bilateral basal ganglia. Normal thalami. There is no extra-axial fluid accumulation. Normal flow voids within the major intracranial circulation suggesting patency by spin echo criteria. Normal venous enhancement. There is no enhancing intra-axial or extra-axial abnormality. Normal sella turcica, pituitary gland, infundibular stalk, optic chiasm and hypothalamus. Normal tectal plate and pineal gland. Normal midbrain, angie and medulla. Normal cerebellum. Normal basal cisterns. Normal bilateral temporal bones. Normal bilateral internal auditory canals. Fluid signal within the mastoids bilaterally which may be consistent with inflammatory disease. No demonstrated orbital abnormality, within the constraints of a routine brain study. Moderate mucosal thickening left maxillary sinus and diffuse mucosal thickening within the ethmoid sinuses bilaterally as well as the right sphenoid sinus. Normal calvarium and skull base. Normal visualized soft tissue structures. Normal visualized upper cervical spine. MRI/Brain W/WO Contrast IMPRESSION: Moderate atrophy and mild periventricular white matter ischemic changes. Old right lacunar infarct. No acute ischemic changes.. Electronically Signed: Benigno Fatima MD at 18:14 EST , Service support ,
--- NOTE | 2018-05-05 13:46 | PN_ITS ---
<Tarik Darby - Last Filed: 05/05/18 13:41> Patient Problems: Active and Suspected Problems (Last Reviewed 05/05/18 @ 11:10 by Abdullahi Styles MD) Stroke-like symptoms (Acute) Subjective: Pt resting comfortably in bed. He feels the weakness has resolved. Son states he appears back to his TCU baseline. Pt expresses no complaints. - Physical Exam General: Alert, Oriented x3, Cooperative HEENT: Atraumatic, PERRLA, EOMI, Normocephalic Neck: Supple, No JVD, Negative Carotid Bruits Lungs: Clear to auscultation, Normal air movement Cardiovascular: Regular rate, No murmurs Abdomen: Bowel Sounds Present, Soft, Non Tender Extremities: No edema, Capillary Refill Less than 3 Seconds Skin: No rashes, No breakdown Musculoskeletal: No Tenderness to Palpation of Joints or Extremities Neurological: Cranial nerves II-XII grossly intact Psych/Mental Status: Normal Affect, Appropriate, Alert and oriented to time, place, person, mood and affect Vital Signs Temp Pulse Resp BP Pulse Ox 97.8 F 83 16 113/71 97 05/05/18 10:00 05/05/18 10:00 05/05/18 10:00 05/05/18 10:00 05/05/18 10:00 Oxygen Delivery Method Room Air Weight: 152 lb 1.903 oz Body Mass Index (BMI) 21.8 Finger Stick Blood Glucose 104 Intake and Output for Last 24 Hours 05/03/18 05/04/18 05/05/18 23:59 23:59 23:59 Intake Total 228 / 228 Balance 228 / 228 Laboratory Tests Past 24 Hrs 05/04/18 05/04/18 05/04/18 23:45 23:45 23:45 WBC 5.4 RBC 3.15 L Hgb 9.3 L Hct 28.2 L MCV 89.5 MCH 29.5 MCHC 33.0 RDW 15.3 H RDW Differential 50.3 H Plt Count 197 MPV 8.6 Immature Gran % (Auto) 0.200 Neut % (Auto) 39.0 L Lymph % (Auto) 45.2 H [place] % (Auto) 8.7 Eos % (Auto) 6.3 H Baso % (Auto) 0.6 Absolute Neuts (auto) 2.1 Absolute Lymphs (auto) 2.45 Total Counted Not Reportable PT 15.1 H INR 1.2 APTT 45.7 H Sodium 137 Potassium 4.1 Chloride 105 Carbon Dioxide 26.0 Anion Gap 6 BUN 32 H Creatinine 1.39 H Estim Creat Clear Calc 45.22 Est GFR (MDRD) Af Amer 64 Est GFR (MDRD) Non-Af 53 L BUN/Creatinine Ratio 23.0 H Glucose 103 Hemoglobin A1c Calcium 9.7 Troponin I < 0.015 Triglycerides Cholesterol LDL Cholesterol VLDL Cholesterol HDL Cholesterol 05/04/18 05/05/18 05/05/18 23:45 02:35 02:35 WBC RBC Hgb Hct MCV MCH MCHC RDW RDW Differential Plt Count MPV Immature Gran % (Auto) Neut % (Auto) Lymph % (Auto) [place] % (Auto) Eos % (Auto) Baso % (Auto) Absolute Neuts (auto) Absolute Lymphs (auto) Total Counted PT INR APTT Sodium 141 Potassium 4.3 Chloride 104 Carbon Dioxide 26.0 Anion Gap 11 BUN 31 H Creatinine 1.43 H Estim Creat Clear Calc 41.55 Est GFR (MDRD) Af Amer 62 Est GFR (MDRD) Non-Af 51 L BUN/Creatinine Ratio 21.7 H Glucose 88 Hemoglobin A1c 4.5 Calcium 9.9 Troponin I < 0.015 Triglycerides 174 Cholesterol 140 LDL Cholesterol 69 VLDL Cholesterol 35 HDL Cholesterol 36 L POC Glucose 05/05/18 05/05/18 05/04/18 12:56 03:30 23:44 POC Glucose 110 93 104 Medical Necessity - Tobacco Use Smoking Status: Never smoker Assessment/Plan All Active Problems (Last Reviewed 05/05/18 @ 11:10 by Abdullahi Styles MD) Stroke-like symptoms (Acute) 1. TIA - weakness resolved. CT brain, CTA head and neck without stroke. MRI pending. Echo Pending. Continue Asa/statin. Neuro following. BP meds held. Slurred speech, weakness, facial droop are improved. 2. HTN - metoprolol held for low BP and permissive htn. 3. Hx ruptured AAA prior to TCU admission. 4. Debility - PTOT, return to SNF 5. Anemia - conitue iron. 6. GERD - ppi 7. Feeding tube - since AAA rupture. Continue diet as ordered and follow speech recommendations. DVT ppx: heparin DC planning: return to TCU when appropriate. This patient was seen by Tarik Darby PA-C under the supervision of Dr. Arizmendi <GoranlenaCorey E - Last Filed: 05/05/18 14:03> - Physical Exam Vital Signs Temp Pulse Resp BP Pulse Ox 97.8 F 83 16 113/71 97 05/05/18 10:00 05/05/18 10:00 05/05/18 10:00 05/05/18 10:00 05/05/18 10:00 Oxygen Delivery Method Room Air Weight: 152 lb 1.903 oz Body Mass Index (BMI) 21.8 Finger Stick Blood Glucose 104 Intake and Output for Last 24 Hours 05/03/18 05/04/18 05/05/18 23:59 23:59 23:59 Intake Total 228 / 228 Balance 228 / 228 Laboratory Tests Past 24 Hrs 05/04/18 05/04/18 05/04/18 23:45 23:45 23:45 WBC 5.4 RBC 3.15 L Hgb 9.3 L Hct 28.2 L MCV 89.5 MCH 29.5 MCHC 33.0 RDW 15.3 H RDW Differential 50.3 H Plt Count 197 MPV 8.6 Immature Gran % (Auto) 0.200 Neut % (Auto) 39.0 L Lymph % (Auto) 45.2 H [place] % (Auto) 8.7 Eos % (Auto) 6.3 H Baso % (Auto) 0.6 Absolute Neuts (auto) 2.1 Absolute Lymphs (auto) 2.45 Total Counted Not Reportable PT 15.1 H INR 1.2 APTT 45.7 H Sodium 137 Potassium 4.1 Chloride 105 Carbon Dioxide 26.0 Anion Gap 6 BUN 32 H Creatinine 1.39 H Estim Creat Clear Calc 45.22 Est GFR (MDRD) Af Amer 64 Est GFR (MDRD) Non-Af 53 L BUN/Creatinine Ratio 23.0 H Glucose 103 Hemoglobin A1c Calcium 9.7 Troponin I < 0.015 Triglycerides Cholesterol LDL Cholesterol VLDL Cholesterol HDL Cholesterol 05/04/18 05/05/18 05/05/18 23:45 02:35 02:35 WBC RBC Hgb Hct MCV MCH MCHC RDW RDW Differential Plt Count MPV Immature Gran % (Auto) Neut % (Auto) Lymph % (Auto) [place] % (Auto) Eos % (Auto) Baso % (Auto) Absolute Neuts (auto) Absolute Lymphs (auto) Total Counted PT INR APTT Sodium 141 Potassium 4.3 Chloride 104 Carbon Dioxide 26.0 Anion Gap 11 BUN 31 H Creatinine 1.43 H Estim Creat Clear Calc 41.55 Est GFR (MDRD) Af Amer 62 Est GFR (MDRD) Non-Af 51 L BUN/Creatinine Ratio 21.7 H Glucose 88 Hemoglobin A1c 4.5 Calcium 9.9 Troponin I < 0.015 Triglycerides 174 Cholesterol 140 LDL Cholesterol 69 VLDL Cholesterol 35 HDL Cholesterol 36 L POC Glucose 05/05/18 05/05/18 05/04/18 12:56 03:30 23:44 POC Glucose 110 93 104 Assessment/Plan Hospitalist note: I am seeing this patient in conjunction with Tarik Darby. I independently seen and examined the patient. Progress note above, laboratory data and imaging studies reviewed and I concur with the above treatment and workup plan. Patient seen and examined today. His symptoms improved. He has no more left side body weakness, no facial droop today. His vital signs are stable. CT scan brain as well as CTA of the head and neck reviewed. Neurology consulted, plan for MRI brain. 2D echocardiogram done, awaiting results. This note was generated with [employer] dictation software. It may contain incorrect words, spelling, and punctuation that were not noted in checking the note before signing.
[2018-05-05] MEDS: 0.9% NaCl Peripheral Flush Adult/Peds IV (18:43)
[2018-05-05] MEDS: 0.9% Normal Saline 1,000 ML 75 ML IV (20:08)
[2018-05-05] MEDS: MELATONIN 3 MG TABLET GT (22:29)
[2018-05-06] VITALS (7 sets, daily range): BP systolic 101–131; BP diastolic 62–76; PULSE 83–89; RESP 16–18; TEMP 36.1–36.8; O2SAT 94–100
[2018-05-06 07:11] LABS: Hematocrit 28.7 % (40-54); Hemoglobin 9.4 g/dl (13.0-16.5)
[2018-05-06] MEDS: 0.9% Normal Saline 1,000 ML 75 ML IV (07:32)
[2018-05-06] MEDS: Aspirin 81 MG TAB.CHEW GT (10:24)
[2018-05-06] MEDS: Fluconazole 100 MG Tablet 200 MG PO (10:24)
[2018-05-06] MEDS: Glycerin/Hypromellose/PEG400 15 ml Bottle 1 DRP EACH EYE (10:25)
[2018-05-06] MEDS: Menthol/Lanolin/Calamine/Znox 113 GM Tube 1 APPLIC TOPICAL (10:27)
[2018-05-06] MEDS: Ferrous Sulfate 300 MG/5 ML UDC GT (10:28)
[2018-05-06] MEDS: Docusate Sodium 100 MG/10 ML UDC GT (10:28)
[2018-05-06] MEDS: Heparin Injection (Vial) 5,000 UNIT/ML VIAL 5000 UNIT SC (10:28)
--- NOTE | 2018-05-06 12:19 | TREXTCAR_ITS ---
- Diet 05/05/18 15:14 Diet: Nothing Per Oral Dietary Modifications:: Mechanical Soft Diet [place] Thick Liquids Is pt able to select menu?: No OK for Pills. Per Passenger [place]: Rec continuous feedlings of TwoCal HN at goal rate of 40cc/hour w/ 50cc flush q 2 hours x 24 hours/day to provide 1920 calories, 80 g protein / 1272 cc free water/day. - Routine Orders/Code Status Suppository Type: Dulcolax 10mg Suppository Frequency: Daily PRN Routine Lab Work: CBC - 5 days, BMP - 5 days Code Status: Full Code - Wound(s) Trach removal Wound Type: Surgical Incision - Therapies Physical Therapy: Eval and Treat Occupational Therapy: Eval and Treat Speech Therapy: Eval and Treat - Problem/Diagnosis (1) TIA (transient ischemic attack) Status: Acute Current Visit: Yes (2) Coronary artery disease Status: Chronic Current Visit: No (3) Dysphagia Status: Chronic Current Visit: No (4) GERD (gastroesophageal reflux disease) Status: Chronic Current Visit: No (5) Hyperlipidemia Status: Chronic Current Visit: No (6) Hypertension Status: Chronic Current Visit: No (7) Iron deficiency anemia Status: Chronic Current Visit: No (8) Abdominal aortic aneurysm, ruptured Status: Inactive Comment: 01/11/2018 Current Visit: No (9) Malnutrition Status: Chronic Current Visit: Yes - Allergies/Procedures Done in Hospital Allergies/Adverse Reactions: Allergies famotidine [From Pepcid] Adverse Reaction (Verified 05/03/18 11:22) Low blood pressure metoclopramide [From Reglan] Adverse Reaction (Verified 05/03/18 11:22) Other Procedures: 2-D Echocardiogram - Type of Care/Length of Stay Estimated LOS: Convalescent Care Less Than 30 days Type of Care Needed: Skilled Rehab Potential: Good Prognosis: Good - Additional Orders/Day of Discharge Day of Discharge: 05/06/18 - Dietary and Speech Recommendations Dietitian Recommendations/Changes: Rec continuous feedlings of TwoCal HN at goal rate of 40cc/hour w/ 50cc flush q 2 hours x 24 hours/day to provide 1920 calories, 80 g protein / 1272 cc free water/day. [ End ] - Follow Up Care Primary Care Physician: Jack Olmedo MD [Primary Care Provider] - Please follow up with your Primary Care Physician in: 1-2 weeks Please Follow Up With: Abdullahi Styles MD When: 2-3 weeks
--- NOTE | 2018-05-06 13:22 | NURSING ---
Report called to Daphne on TCU
--- NOTE | 2018-05-06 13:36 | NURSING ---
Reviewed and agreed on all charting with Zbigniew Mejia RN
--- NOTE | 2018-05-06 14:45 | PCM.DC.SUM ---
<Tarik Darby - Last Filed: 05/06/18 14:49> Discharge Date and Diagnosis Date of Admission: 05/05/18 Date of Discharge: 05/06/18 - Primary Discharge Diagnosis TIA CKD Dysphagia Hx Recent AAA disection with succesful repair Hx recent Cardiac arrest HTN Debility GERD Severe protein calorie malnutrition Thrush - Secondary Discharge Diagnosis Chronic Problems (Last Reviewed 05/05/18 @ 17:35 by Abimbola Morris, GILBERTO-C) Malnutrition (Chronic) Hyperlipidemia (Chronic) Iron deficiency anemia (Chronic) GERD (gastroesophageal reflux disease) (Chronic) Dysphagia (Chronic) Anemia (Chronic) Vasovagal syndrome (Chronic) Coronary artery disease (Chronic) Coronary artery disease (Chronic) Hypertension (Chronic) Hospital Course and Treatment Imaging Results: CT brain w/o contrast IMPRESSION: No evidence for acute intracranial hemorrhage, mass effect or acute large territory infarcts. Mild chronic small vessel disease. Chronic left basal ganglia Mucosal thickening of the ethmoid air cells and the maxillary sinuses as well as the right sphenoid sinus suggestive of sinusitis. Partial opacification of the mastoid air cells can be seen in the setting of mastoid effusion or mastoiditis RAD/Chest 1 View IMPRESSION: Right medial lung base atelectasis versus infiltrate CT/CTA Head W/WO Contrast IMPRESSION: 1. Patent [place] of [place]. No intracranial aneurysm, vascular malformation, or significant stenosis. 2. Bilateral patency of the vertebral arteries with the left vertebral artery dominant. 3. Bilateral mastoiditis and paranasal sinusitis. Details above. Individualized dose optimization techniques were used for this CT. CT/CTA Neck W/WO Contrast IMPRESSION: 1. No carotid dissection or significant carotid stenosis. 2. Bilateral patency of the vertebral arteries with the left vertebral artery dominant. 3. Paranasal sinusitis and bilateral mastoiditis. Details above Individualized dose optimization techniques were used for this CT. Echo: Interpretation Summary The study was technically difficult. Left ventricular systolic function is normal. The estimated ejection fraction is 60 %. Trivial mitral valve insufficiency. Trivial tricuspid valve insufficiency. Trivial pulmonic valve insufficiency. Unable to estimate RV systolic pressure/pulmonary artery pressure due to technically difficult study. No evidence for diastolic dysfunction. MRI/Brain W/WO Contrast IMPRESSION: Moderate atrophy and mild periventricular white matter ischemic changes. Old right lacunar infarct. No acute ischemic changes.. Consults: Hakan - neuro Operations: None Procedures: 2-D Echocardiogram Summary of Care Provided: Hospital Course: The patient is a 78 year old M with pmhx of ruptured AAA, cardiac arrest at [facility], subsequently has been undergoing rehab in the TCU, who developed dysarthria, weakness, and confusion. He was sent to the ER with concern for stroke. CT brain and CTA head and neck were obtained with no acute stroke. He was admitted to the PCU and placed on tele. Neuro was consulted. He was placed on aspirin and statin. MRI of the brain was obtained and showed an old stroke, no acute stroke. Echo was unremarkable. His symptoms resolved while on the PCU and returned to baseline. Neuro felt this was a TIA and recommended dc on asa/statin, with neuro follow up. Also of note, while here, he had a re-evaluation by speech therapy and was made NPO. Dietary advanced his tube feeds to 40cc continuous as he has severe malnutrition. Speech OK'd the patient to have oral pills. He also has had thrush that has not improved with nystatin. He was placed on fluconazole 200, to be followed by 7-14 days of 100 qd. He was dc'd back to TCU in stable condition. He will need follow up with his PCP in 1-2 weeks and with neuro in 2-3 weeks. This patient was seen by Tarik Darby PA-C under the supervision of Dr. Arizmendi. [] - Physical Exam General: Alert, Oriented x3, Cooperative HEENT: Atraumatic, PERRLA, EOMI, Normocephalic Neck: Supple, No JVD, Negative Carotid Bruits Lungs: Clear to auscultation, Normal air movement Cardiovascular: Regular rate, No murmurs Abdomen: Bowel Sounds Present, Soft, Non Tender Extremities: No edema, Capillary Refill Less than 3 Seconds Skin: No rashes, No breakdown Musculoskeletal: No Tenderness to Palpation of Joints or Extremities Neurological: Cranial nerves II-XII grossly intact Psych/Mental Status: Normal Affect, Appropriate, Alert and oriented to time, place, person, mood and affect Vital Signs Temp Pulse Resp BP Pulse Ox 98.2 F 86 18 131/76 H 94 05/06/18 10:37 05/06/18 11:03 05/06/18 10:37 05/06/18 10:37 05/06/18 11:48 Oxygen Delivery Method Room Air Weight: 152 lb 1.903 oz Body Mass Index (BMI) 21.8 Finger Stick Blood Glucose 104 Intake and Output for Last 24 Hours 05/04/18 05/05/18 05/06/18 23:59 23:59 23:59 Intake Total 1810 / 1810 1776 / 1776 Output Total 100 / 100 Balance 1810 / 1810 1676 / 1676 Laboratory Tests Past 24 Hrs 05/06/18 06:28 Hgb 9.4 L Hct 28.7 L Discharge Diet: No Restrictions Discharge Activity: Return to Normal Activity Home Medications: Medications to take at Discharge Docusate Sodium [COLACE LIQUID] 100 mg GT BID 03/28/18 Ferrous Sulfate Syrup 300 mg GT BID 03/28/18 Heparin Injection 5,000 units SUBCUT BID 03/28/18 Ipratropium/Albuterol Sulfate [Duoneb] 3 ml INHALATION TID 03/28/18 Lansoprazole [Prevacid] 30 mg GT DAILY 03/28/18 Propylene Glycol/Peg 400/Pf [Systane 0.3-0.4% Eye Drop] 1 ea OP BID 03/28/18 Albuterol Aerosols [Ventolin Aerosols] 2.5 mg INHALATION Q2H PRN PRN vial.neb. 04/04/18 0.9% Normal Saline 60 ml IV Q16H 05/05/18 Acetaminophen Liquid [Tylenol Liquid] 650 mg GT Q4H PRN PRN 05/05/18 Melatonin 3 mg PO QHS 05/05/18 Menthol/Lanolin/Calamine/Znox [Calmoseptine Ointment] 1 applic TOPICAL BID 05/05/18 Nut.sup,Spec,Lac-Free,Iron/Fos [Twocal Hn Liquid] 40 ml GT DAILY 05/05/18 Polyvinyl Alcohol [Artificial Tears] 1 drop OP Q4H PRN 05/05/18 Aspirin [Aspirin, Baby] 81 mg GT DAILY@0800 05/06/18 Atorvastatin Calcium [Lipitor] 40 mg GT QHS 05/06/18 Fluconazole 100 mg PO DAILY 05/06/18 Primary Care Physician: Jack Olmedo MD [Primary Care Provider] - Please follow up with your Primary Care Physician in: 1-2 weeks Please Follow Up With: Abdullahi Styles MD When: 2-3 weeks Disposition: Home Minutes spent on discharge:: 40 Patient Condition:: Stable Medical Necessity - Tobacco Use Smoking Status: Never smoker Tobacco Use: Non-smoker Meaningful Use Info Meaningful Use Diagnoses (Choose all that apply): None applicable <Corey Arizmendi - Last Filed: 05/07/18 12:22> Discharge Date and Diagnosis - Secondary Discharge Diagnosis Chronic Problems (Last Reviewed 05/05/18 @ 17:35 by Abimbola Morris NP-C) Malnutrition (Chronic) Anoxic encephalopathy (Chronic) Abdominal aortic aneurysm, ruptured (Chronic) 01/11/2018 Hyperlipidemia (Chronic) Iron deficiency anemia (Chronic) GERD (gastroesophageal reflux disease) (Chronic) Dysphagia (Chronic) Anemia (Chronic) Vasovagal syndrome (Chronic) Coronary artery disease (Chronic) Coronary artery disease (Chronic) Hypertension (Chronic) Hospital Course and Treatment Summary of Care Provided: Hospitalist note: Discharge summary above reviewed as well as physical examination and I agree with the above discharge plan. He was transferred to the TCU [facility] 2 ED because of strokelike symptoms. He had left facial droop as well as left-sided body weakness. He had stroke workup that was unremarkable for acute stroke. Her symptoms attributed to transient ischemic attacks. CT scan brain showed no acute findings. CTA of the head and neck showed no hemodynamically significant vascular disease or stenosis. MRI brain also obtained and showed old stroke, no evidence of acute stroke or hemorrhage. Echocardiogram was unremarkable. Patient symptoms improved. He was treated with aspirin and statins. Patient discharged back to TCU with a stable medical condition, discharged on aspirin and statins, started on continuous tube feeds because of dysphagia, kept on n.p.o. because of high risk of aspiration, plan for speech therapy and evaluation at TCU, follow-up with PCP in 1-2 weeks, follow-up with neurology in 3 weeks. - Physical Exam General: Alert, Oriented x3, Cooperative, No apparent distress. HEENT: Atraumatic, PERRLA, EOMI. Neck: Supple, No JVD, Negative Carotid Bruits, Trachea Midline, Thyroid Normal. Lungs: Diminished breath sounds bilateral, otherwise clear no rhonchi, No wheeze, No rales. Cardiovascular: Regular rate, Regular Rhythm, Normal S1, Normal S2, PMI Normal. Abdomen: Bowel Sounds Present, Soft, Non Tender, Non-Distended, No Hepato-splenomegaly, PEG tube in place. Extremities: No clubbing, No cyanosis, No edema Skin: No rashes, No breakdown Neurological: Neuro grossly intact Vital Signs are stable. This note was generated with [employer] dictation software. It may contain incorrect words, spelling, and punctuation that were not noted in checking the note before signing. - Physical Exam Vital Signs Temp Pulse Resp BP Pulse Ox 98.2 F 86 18 131/76 H 94 05/06/18 10:37 05/06/18 11:03 05/06/18 10:37 05/06/18 10:37 05/06/18 11:48 Oxygen Delivery Method Room Air Weight: 152 lb 1.903 oz Body Mass Index (BMI) 21.8 Finger Stick Blood Glucose 104 Intake and Output for Last 24 Hours 05/04/18 05/05/18 05/06/18 23:59 23:59 23:59 Intake Total 1810 / 1810 1776 / 1776 Output Total 100 / 100 Balance 1810 / 1810 1676 / 1676 Laboratory Tests Past 24 Hrs 05/06/18 06:28 Hgb 9.4 L Hct 28.7 L [facility] Minutes spent on discharge:: 26 Patient Condition:: Stable Meaningful Use Info Meaningful Use Diagnoses (Choose all that apply): None applicable Code Visit Inpatient E&M: 22118 Disch Hosp
--- NOTE | 2018-05-06 14:48 | DS.PCM_ITS ---
<Tarik Darby - Last Filed: 05/06/18 14:49> Discharge Date and Diagnosis Date of Admission: 05/05/18 Date of Discharge: 05/06/18 - Primary Discharge Diagnosis TIA CKD Dysphagia Hx Recent AAA disection with succesful repair Hx recent Cardiac arrest HTN Debility GERD Severe protein calorie malnutrition Thrush - Secondary Discharge Diagnosis Chronic Problems (Last Reviewed 05/05/18 @ 17:35 by Abimbola Morris, GILBERTO-C) Malnutrition (Chronic) Hyperlipidemia (Chronic) Iron deficiency anemia (Chronic) GERD (gastroesophageal reflux disease) (Chronic) Dysphagia (Chronic) Anemia (Chronic) Vasovagal syndrome (Chronic) Coronary artery disease (Chronic) Coronary artery disease (Chronic) Hypertension (Chronic) Hospital Course and Treatment Imaging Results: CT brain w/o contrast IMPRESSION: No evidence for acute intracranial hemorrhage, mass effect or acute large territory infarcts. Mild chronic small vessel disease. Chronic left basal ganglia Mucosal thickening of the ethmoid air cells and the maxillary sinuses as well as the right sphenoid sinus suggestive of sinusitis. Partial opacification of the mastoid air cells can be seen in the setting of mastoid effusion or mastoiditis RAD/Chest 1 View IMPRESSION: Right medial lung base atelectasis versus infiltrate CT/CTA Head W/WO Contrast IMPRESSION: 1. Patent [place] of [place]. No intracranial aneurysm, vascular malformation, or significant stenosis. 2. Bilateral patency of the vertebral arteries with the left vertebral artery dominant. 3. Bilateral mastoiditis and paranasal sinusitis. Details above. Individualized dose optimization techniques were used for this CT. CT/CTA Neck W/WO Contrast IMPRESSION: 1. No carotid dissection or significant carotid stenosis. 2. Bilateral patency of the vertebral arteries with the left vertebral artery dominant. 3. Paranasal sinusitis and bilateral mastoiditis. Details above Individualized dose optimization techniques were used for this CT. Echo: Interpretation Summary The study was technically difficult. Left ventricular systolic function is normal. The estimated ejection fraction is 60 %. Trivial mitral valve insufficiency. Trivial tricuspid valve insufficiency. Trivial pulmonic valve insufficiency. Unable to estimate RV systolic pressure/pulmonary artery pressure due to technically difficult study. No evidence for diastolic dysfunction. MRI/Brain W/WO Contrast IMPRESSION: Moderate atrophy and mild periventricular white matter ischemic changes. Old right lacunar infarct. No acute ischemic changes.. Consults: Hakan - neuro Operations: None Procedures: 2-D Echocardiogram Summary of Care Provided: Hospital Course: The patient is a 78 year old M with pmhx of ruptured AAA, cardiac arrest at [facility], subsequently has been undergoing rehab in the TCU, who developed dysarthria, weakness, and confusion. He was sent to the ER with concern for stroke. CT brain and CTA head and neck were obtained with no acute stroke. He was admitted to the PCU and placed on tele. Neuro was consulted. He was placed on aspirin and statin. MRI of the brain was obtained and showed an old stroke, no acute stroke. Echo was unremarkable. His symptoms resolved while on the PCU and returned to baseline. Neuro felt this was a TIA and recommended dc on asa/statin, with neuro follow up. Also of note, while here, he had a re- evaluation by speech therapy and was made NPO. Dietary advanced his tube feeds to 40cc continuous as he has severe malnutrition. Speech OK'd the patient to have oral pills. He also has had thrush that has not improved with nystatin. He was placed on fluconazole 200, to be followed by 7-14 days of 100 qd. He was dc'd back to TCU in stable condition. He will need follow up with his PCP in 1-2 weeks and with neuro in 2-3 weeks. This patient was seen by Tarik Darby PA-C under the supervision of Dr. Arizmendi. [] - Physical Exam General: Alert, Oriented x3, Cooperative HEENT: Atraumatic, PERRLA, EOMI, Normocephalic Neck: Supple, No JVD, Negative Carotid Bruits Lungs: Clear to auscultation, Normal air movement Cardiovascular: Regular rate, No murmurs Abdomen: Bowel Sounds Present, Soft, Non Tender Extremities: No edema, Capillary Refill Less than 3 Seconds Skin: No rashes, No breakdown Musculoskeletal: No Tenderness to Palpation of Joints or Extremities Neurological: Cranial nerves II-XII grossly intact Psych/Mental Status: Normal Affect, Appropriate, Alert and oriented to time, place, person, mood and affect Vital Signs Temp Pulse Resp BP Pulse Ox 98.2 F 86 18 131/76 H 94 05/06/18 10:37 05/06/18 11:03 05/06/18 10:37 05/06/18 10:37 05/06/18 11:48 Oxygen Delivery Method Room Air Weight: 152 lb 1.903 oz Body Mass Index (BMI) 21.8 Finger Stick Blood Glucose 104 Intake and Output for Last 24 Hours 05/04/18 05/05/18 05/06/18 23:59 23:59 23:59 Intake Total 1810 / 1810 1776 / 1776 Output Total 100 / 100 Balance 1810 / 1810 1676 / 1676 Laboratory Tests Past 24 Hrs 05/06/18 06:28 Hgb 9.4 L Hct 28.7 L Discharge Diet: No Restrictions Discharge Activity: Return to Normal Activity Home Medications: Medications to take at Discharge Docusate Sodium [COLACE LIQUID] 100 mg GT BID 03/28/18 Ferrous Sulfate Syrup 300 mg GT BID 03/28/18 Heparin Injection 5,000 units SUBCUT BID 03/28/18 Ipratropium/Albuterol Sulfate [Duoneb] 3 ml INHALATION TID 03/28/18 Lansoprazole [Prevacid] 30 mg GT DAILY 03/28/18 Propylene Glycol/Peg 400/Pf [Systane 0.3-0.4% Eye Drop] 1 ea OP BID 03/28/18 Albuterol Aerosols [Ventolin Aerosols] 2.5 mg INHALATION Q2H PRN PRN vial.neb. 04/04/18 0.9% Normal Saline 60 ml IV Q16H 05/05/18 Acetaminophen Liquid [Tylenol Liquid] 650 mg GT Q4H PRN PRN 05/05/18 Melatonin 3 mg PO QHS 05/05/18 Menthol/Lanolin/Calamine/Znox [Calmoseptine Ointment] 1 applic TOPICAL BID 05/05/18 Nut.sup,Spec,Lac-Free,Iron/Fos [Twocal Hn Liquid] 40 ml GT DAILY 05/05/18 Polyvinyl Alcohol [Artificial Tears] 1 drop OP Q4H PRN 05/05/18 Aspirin [Aspirin, Baby] 81 mg GT DAILY@0800 05/06/18 Atorvastatin Calcium [Lipitor] 40 mg GT QHS 05/06/18 Fluconazole 100 mg PO DAILY 05/06/18 Primary Care Physician: Jack Olmedo MD [Primary Care Provider] - Please follow up with your Primary Care Physician in: 1-2 weeks Please Follow Up With: Abdullahi Styles MD When: 2-3 weeks Disposition: Home Minutes spent on discharge:: 40 Patient Condition:: Stable Medical Necessity - Tobacco Use Smoking Status: Never smoker Tobacco Use: Non-smoker Meaningful Use Info Meaningful Use Diagnoses (Choose all that apply): None applicable <Corey Arizmendi - Last Filed: 05/07/18 12:22> Discharge Date and Diagnosis - Secondary Discharge Diagnosis Chronic Problems (Last Reviewed 05/05/18 @ 17:35 by Abimbola Morris NP-C) Malnutrition (Chronic) Anoxic encephalopathy (Chronic) Abdominal aortic aneurysm, ruptured (Chronic) 01/11/2018 Hyperlipidemia (Chronic) Iron deficiency anemia (Chronic) GERD (gastroesophageal reflux disease) (Chronic) Dysphagia (Chronic) Anemia (Chronic) Vasovagal syndrome (Chronic) Coronary artery disease (Chronic) Coronary artery disease (Chronic) Hypertension (Chronic) Hospital Course and Treatment Summary of Care Provided: Hospitalist note: Discharge summary above reviewed as well as physical examination and I agree with the above discharge plan. He was transferred to the TCU [facility] 2 ED because of strokelike symptoms. He had left facial droop as well as left-sided body weakness. He had stroke workup that was unremarkable for acute stroke. Her symptoms attributed to transient ischemic attacks. CT scan brain showed no acute findings. CTA of the head and neck showed no hemodynamically significant vascular disease or stenosis. MRI brain also obtained and showed old stroke, no evidence of acute stroke or hemorrhage. Echocardiogram was unremarkable. Patient symptoms improved. He was treated with aspirin and statins. Patient discharged back to TCU with a stable medical condition, discharged on aspirin and statins, started on continuous tube feeds because of dysphagia, kept on n.p.o. because of high risk of aspiration, plan for speech therapy and evaluation at TCU, follow-up with PCP in 1-2 weeks, follow-up with neurology in 3 weeks. - Physical Exam General: Alert, Oriented x3, Cooperative, No apparent distress. HEENT: Atraumatic, PERRLA, EOMI. Neck: Supple, No JVD, Negative Carotid Bruits, Trachea Midline, Thyroid Normal. Lungs: Diminished breath sounds bilateral, otherwise clear no rhonchi, No wheeze, No rales. Cardiovascular: Regular rate, Regular Rhythm, Normal S1, Normal S2, PMI Normal. Abdomen: Bowel Sounds Present, Soft, Non Tender, Non-Distended, No Hepato- splenomegaly, PEG tube in place. Extremities: No clubbing, No cyanosis, No edema Skin: No rashes, No breakdown Neurological: Neuro grossly intact Vital Signs are stable. This note was generated with [employer] dictation software. It may contain incorrect words, spelling, and punctuation that were not noted in checking the note before signing. - Physical Exam Vital Signs Temp Pulse Resp BP Pulse Ox 98.2 F 86 18 131/76 H 94 05/06/18 10:37 05/06/18 11:03 05/06/18 10:37 05/06/18 10:37 05/06/18 11:48 Oxygen Delivery Method Room Air Weight: 152 lb 1.903 oz Body Mass Index (BMI) 21.8 Finger Stick Blood Glucose 104 Intake and Output for Last 24 Hours 05/04/18 05/05/18 05/06/18 23:59 23:59 23:59 Intake Total 1810 / 1810 1776 / 1776 Output Total 100 / 100 Balance 1810 / 1810 1676 / 1676 Laboratory Tests Past 24 Hrs 05/06/18 06:28 Hgb 9.4 L Hct 28.7 L Disposition: [facility] Minutes spent on discharge:: 26 Patient Condition:: Stable Meaningful Use Info Meaningful Use Diagnoses (Choose all that apply): None applicable Code Visit Inpatient E&M: 87556 Disch Hosp
--- OUTSIDE RECORDS SUMMARY | 2018-06-30 00:14 | XMS RPT_ITS ---
:1940 External Reference #:[id number] Author Organization [place] Support Name Relationship Address Phone Ariadna Casanova Unavailable Unavailable + R Unavailable Unavailable Unavailable MABLE SHELLY Unavailable [address] + [place] [address] R Unavailable Unavailable Unavailable SHELLY AKINS Unavailable [address] + [place] [address] Ariadna Casanova Unavailable Unavailable + R Unavailable Unavailable Unavailable SHELLY AKINS Unavailable [address] + [place] [address] Ariadna Csaanova Unavailable Unavailable + R Unavailable Unavailable Unavailable SHELLY AKINS Unavailable [address] + [place] [address] Ariadna Casanova Unavailable Unavailable + R Unavailable Unavailable Unavailable SHELLY AKINS Unavailable [address] + [place] [address] R Unavailable Unavailable Unavailable PREETI AKINSE Unavailable [address] + [place] [address] Ariadna Casanova Unavailable Unavailable + R Unavailable Unavailable Unavailable SHELLY AKINS Unavailable [address] + [place] [address] R Unavailable Unavailable Unavailable MABLE SHELLY Unavailable [address] + [place] [address] R Unavailable Unavailable Unavailable SHELLY AKINS Unavailable [address] + [place] [address] R Unavailable Unavailable Unavailable SHELLY AKNIS Unavailable [address] + [place] [address] R Unavailable Unavailable Unavailable SHELLY AKINS Unavailable [address] + [place] [address] R Unavailable Unavailable Unavailable SHELLY AKINS Unavailable [address] + [place] [address] R Unavailable Unavailable Unavailable SHELLY AKINS Unavailable [address] + [place] [address] R Unavailable Unavailable Unavailable SHELLY AKINS Unavailable [address] + [place] [address] R Unavailable Unavailable Unavailable SHELLY AKINS Unavailable [address] + [place] [address] R Unavailable Unavailable Unavailable SHELLY AKINS Unavailable [address] + [place] [address] R Unavailable Unavailable Unavailable SHELLY AKINS Unavailable [address] + [place] [address] R Unavailable Unavailable Unavailable SHELLY AKINS Unavailable [address] + [place] [address] R Unavailable Unavailable Unavailable SHELLY AKINS Unavailable [address] + [place] [address] R Unavailable Unavailable Unavailable SHELLY AKINS Unavailable [address] + [place] [address] R Unavailable Unavailable Unavailable SHELLY AKINS Unavailable [address] + [place] [address] R Unavailable Unavailable Unavailable SHELLY AKINS Unavailable [address] + [place] [address] Care Team Providers Name Role Phone Cammy Crowe Attending Unavailable Cammy Crowe Referring Unavailable Olmedo, Jack Primary Care Unavailable Olmedo, Jack Attending Unavailable Olmedo, Jack Referring Unavailable Olmedo, Jack Primary Care Unavailable Olmedo, Jack Attending Unavailable Olmedo, Jack Referring Unavailable Olmedo, Jack Primary Care Unavailable Olmedo, Jack Primary Care Unavailable Kathy Dill Attending Unavailable Sj, Jh Chi Admitting Unavailable Sj, Jh Chi Attending Unavailable Sj, Jh Chi Referring Unavailable Olmedo, Jack Primary Care Unavailable Olmedo, Jack Primary Care Unavailable Ny Lewis Admitting Unavailable Ricardo Mcclendon Consulting Unavailable Karmen Montiela Attending Unavailable Nelson Mathews Consulting Unavailable White, Ny Admitting Unavailable WhiteNy Attending Unavailable Olmedo, Jack Primary Care Unavailable Hakan, Ricardo S. Consulting Unavailable White, Ny Consulting Unavailable White, Ny Admitting Unavailable Paintsil, Butte Attending Unavailable Olmedo, Jack Primary Care Unavailable Hakan, Ricardo S. Consulting Unavailable Paintsil, Butte Consulting Unavailable White, Ny Admitting Unavailable Paintsil, Butte Attending Unavailable Olmedo, Jack Primary Care Unavailable Hakan, Ricardo S. Consulting Unavailable Reid, Nelson Consulting Unavailable Paintsil, Butte Consulting Unavailable White, Ny Admitting Unavailable Paintsil, Butte Attending Unavailable Olmedo, Jack Primary Care Unavailable Hakan, Ricardo S. Consulting Unavailable Reid, Nelson Consulting Unavailable Paintsil, Butte Consulting Unavailable Sj, Jh Chi Admitting Unavailable Sj, Jh Chi Attending Unavailable Sj, Jh Chi Referring Unavailable Olmedo, Jack Primary Care Unavailable Nelson Mathews Attending Unavailable White, Ny Referring Unavailable Moy Gee Attending Unavailable Sj, Jh Chi Referring Unavailable Abimbola Morris Attending Unavailable Olmedo, Jack Referring Unavailable Olmedo, Jack Primary Care Unavailable Agyepong, Genaro Admitting Unavailable Hakan, Ricardo S. Consulting Unavailable Ashelfah, Ghasem Attending Unavailable Agyepong, Genaro Admitting Unavailable Agyepong, Genaro Attending Unavailable Olmedo, Jack Primary Care Unavailable Hakan, Ricardo S. Consulting Unavailable Agyepong, Genaro Consulting Unavailable Sj, Jh Chi Admitting Unavailable Sj, Jh Chi Attending Unavailable Olmedo, Jack Primary Care Unavailable Robotham, Nivia Consulting Unavailable Agyepong, Genaro Admitting Unavailable Olmedo, Jack Primary Care Unavailable Hakan, Ricardo S. Consulting Unavailable Ashelfah, Ghasem Attending Unavailable Ashelfah, Ghasem Consulting Unavailable Olmedo, Jack Primary Care Unavailable Mark Michaels Attending Unavailable Sj, Jh Chi Attending Unavailable Olmedo, Jack Primary Care Unavailable Sj, Jh Chi Admitting Unavailable Selina Gamez PA-C Attending Unavailable Olmedo, Jack Primary Care Unavailable Robotham, Nivia Consulting Unavailable Sj, Jh Chi Consulting Unavailable Sj, Jh Chi Admitting Unavailable Robotham, Nivia Attending Unavailable Olmedo, Jack Primary Care Unavailable [place], Nivia Consulting Unavailable Sj, Jh Chi Consulting Unavailable VENKAT PANIAGUA Admitting Unavailable VENKAT PANIAGUA Attending Unavailable DORCAS MCDONNELL Consulting Unavailable LORA SOLIZ Admitting Unavailable CHENTE WHITTAKER Attending Unavailable MAHI NOVOA) Consulting Unavailable VENKAT PANIAGUA Admitting Unavailable VENKAT PANIAGUA Attending Unavailable [facility] Primary Care Unavailable VENKAT PANIAGUA Admitting Unavailable VENKAT PANIAGUA Attending Unavailable [place], MEGAN Primary Care Unavailable PERCY CARRERA Consulting Unavailable EKATERINA MCKEON Consulting Unavailable TANPHAICHITR, NATTHAVAT Consulting Unavailable GILBERT TUCKER Consulting Unavailable ADRIANE CARVALHO Consulting Unavailable BRAD CASTILLO Consulting Unavailable Catalino MARTINO Consulting Unavailable EDU IIIDORCAS Consulting Unavailable IMCA Referring Unavailable [facility] Primary Care Unavailable [facility] Referring Unavailable [facility] Primary Care Unavailable [facility] Primary Care Unavailable CHENTE WHITTAKER Attending Unavailable MD CYNDI PAULINO Admitting Unavailable GILBERT TUCKER Consulting Unavailable TANPHAICHITR, NATTHAVAT Consulting Unavailable SIMI ESQUEDA Consulting Unavailable MAHI NOVOA () Consulting Unavailable PROBLEMS PROBLEMS DATE TYPE CONDITION / CODE ATTENDING STATUS SOURCE 05/23/2018 Unknown I69.854 - Hemiplegia Robotham, Active [place] and hemiparesis Nivia Community following other Hospital cerebrovascular Repository disease affecting left non-dominant side / I69.854(ICD-10) 05/05/2018 Unknown R53.81 - Other Sj, Jh Chi Active [place] malaise / Community R53.81(ICD-10) Hospital Repository 05/05/2018 Unknown R13.12 - Dysphagia, Sj, Jh Chi Active [place] oropharyngeal phase / Community R13.12(ICD-10) Hospital Repository 04/11/2018 Unknown J96.10 - Chronic Reid, Nelson Active [place] respiratory failure, Community unspecified whether Hospital with hypoxia or Repository hypercapnia / J96.10(ICD-10) 04/11/2018 Unknown R55 - Syncope and Reid, Nelson Active [place] collapse / Community R55(ICD-10) Hospital Repository 04/11/2018 Unknown E78.5 - Reid, Nelson Active [place] Hyperlipidemia, Community unspecified / Hospital E78.5(ICD-10) Repository 04/11/2018 Unknown K21.9 - Reid, Nelson Active [place] Gastro-esophageal Community reflux disease Hospital without esophagitis / Repository K21.9(ICD-10) 04/24/2018 Unknown I25.10 - Moy Gee Active [place] Atherosclerotic heart Community disease of [facility] coronary artery Repository without angina pectoris / I25.10(ICD-10) 04/24/2018 Unknown I10 - Essential Moy Gee Active [place] (primary) Community hypertension / Hospital I10(ICD-10) Repository 03/11/2018 Active Syncope and collapse CHENTE WHITTAKER Active [place] / R55(ICD-10) R Clinic Other [facility] Repository 03/10/2018 Active Bradycardia, CHENTE WHITTAKER Active [place] unspecified / R Clinic Other R00.1(ICD-10) [facility] Repository 03/10/2018 Active Unspecified foreign CHENTE WHITTAKER Active [place] body in other parts R Clinic Other of respiratory tract [facility] causing asphyxiation, Repository initial encounter / T17.800A(ICD-10) 06/16/2009 Active Biliary acute CHENTE WHITTAKER Active [place] pancreatitis without R Clinic Other necrosis or infection [facility] / K85.10(ICD-10) Repository 03/11/2018 Admitting Unknown / CHENTE WHITTAKER Active [place] [facility] UNK(Unknown) [facility] Repository 01/12/2018 Active Unknown / NA Active [place] UNK(Unknown) Clinic Other [facility] Repository 01/31/2018 Active Abdominal aortic VENKAT PANIAGUA Active [place] aneurysm, ruptured / [facility] Other I71.3(ICD-10) [facility] Repository 01/28/2018 Active Encephalopathy, VENKAT PANIAGUA Active [place] unspecified / [facility] Other G93.40(ICD-10) [facility] Repository 01/12/2018 Active Cardiac arrest, cause VENKAT PANIAGUA Active [place] unspecified / [facility] Other I46.9(ICD-10) [facility] Repository 01/12/2018 Active 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 [facility] Other coagulation [facility] (defibrination Repository syndrome) / D65(ICD-10) 01/12/2018 Active Other shock / VENKAT PANIAGUA Active [place] R57.8(ICD-10) [facility] Other [facility] Repository 01/12/2018 Active Supraventricular VENKAT PANIAGUA Active [place] tachycardia / [facility] Other I47.1(ICD-10) [facility] Repository 01/10/2018 Unknown R53.83 - Other Jack Olmedo Active [place] fatigue / Community R53.83(ICD-10) Hospital Repository 01/10/2018 Unknown R50.9 - Fever, Olmedo Jack Active [place] unspecified / Community R50.9(ICD-10) Hospital Repository 11/30/2017 Unknown Z01.818 - Encounter Sebastien, Active [place] for other [facility] preprocedural Hospital examination / Repository Z01.818(ICD-10) PROCEDURES PROCEDURES No Procedure Records FoundRESULTS RESULTS CONSULTATION Observed: 05/23/2018 Status: F Source: [place] 4:01 PM [facility] REPOSITORY [facility] Medical Records Department [address] [place] [address] Consultation 05/22/18 1215 MR#: [id number] Acct: [id number] Name: NAVEEN AKINS Rep #: [id number] : 1940 78 From: Nivia Maciel MD PCP: Jack Olmedo MD Status: ADM IN Y Location: [place] [address] Reason for Consult Date of Consultation: 05/22/18 Reason for Consultation: Replacement of PEG tube History of Present Illness: The patient is a 78 year old M patient was initially admitted to the TCU, patient has a history status post his open AAA repair at [facility] in January 2018. Patient had multiple abdominal surgeries in order to close his abdomen as well. Patient did have a PEG tube placed at that time. While moving the PEG tube was inadvertently pulled. The nurses did place an 18 Chinese Sanchez catheter at the site this occurred on Tuesday. Currently patient is only using the PEG tube for nighttime feeds to increase nutrition. Past Medical History Past Medical History (Chronic Problems): Chronic Problems (Last Reviewed 05/05/18 @ 17:35 by RICA Rosenberg) Malnutrition (Chronic) Anoxic encephalopathy (Chronic) Abdominal aortic aneurysm, ruptured (Chronic) 01/11/2018 Hyperlipidemia (Chronic) Iron deficiency anemia (Chronic) GERD (gastroesophageal reflux disease) (Chronic) Dysphagia (Chronic) Anemia (Chronic) Vasovagal syndrome (Chronic) Coronary artery disease (Chronic) Coronary artery disease (Chronic) Hypertension (Chronic) Medical History: Medical History (Last Reviewed 05/05/18 @ 17:35 by RICA Rosenberg) Abdominal aortic aneurysm, ruptured (Chronic) I71.3 01/11/2018 Cardiac arrest (Inactive) I46.9 Hyperlipidemia (Chronic) E78.5 Iron deficiency anemia (Chronic) D50.9 GERD (gastroesophageal reflux disease) (Chronic) K21.9 Dysphagia (Chronic) R13.10 Anemia (Chronic) D64.9 Vasovagal syndrome (Chronic) R55 Coronary artery disease (Chronic) I25.10 Coronary artery disease (Chronic) I25.10 Hypertension (Chronic) I10 Allergies famotidine [From Pepcid] Adverse Reaction (Verified 05/07/18 19:47) Low blood pressure metoclopramide [From Reglan] Adverse Reaction (Verified 05/07/18 19:47) Other Home Medications: Ambulatory Orders Medication Instructions Recorded Ferrous Sulfate Syrup 300 mg GT BID 03/28/18 Heparin Injection 5,000 units SUBCUT BID 03/28/18 Surgical History: Surgical History (Last Reviewed 05/05/18 @ 17:35 by RICA Rosenberg) H/O abdominal aortic aneurysm repair Z98.890 7 surgeries related to this, also had a wound vac H/O heart artery stent Z95.5 H/O hernia repair Z98.890, Z87.19 Hx of cholecystectomy Z90.49 Left shoulder surgery 1998? 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 Psychiatric History: No pertinent psych hx Lives: Shelter Smoking Status: Never smoker Tobacco Use: Non-smoker Alcohol: None Drugs: None - *Family History Paternal Family History: Family History (Last Reviewed 05/05/18 @ 17:35 by RICA Rosenberg) Sister Factor 5 Leiden mutation, heterozygous Aneurysm Sister Aneurysm History Items: - - No marked maternal or paternal family history reported including HD, DM, CA. Maternal Family History: Family History (Last Reviewed 05/05/18 @ 17:35 by RICA Rosenberg) Sister Factor 5 Leiden mutation, heterozygous Aneurysm Sister Aneurysm History Items: - - No marked maternal or paternal family history reported including HD, DM, CA. Review of Systems Constitutional: Denies: Anorexia, Chills HEENT: Denies: Difficulty Swallowing Cardiovascular: Denies: Chest Pain Respiratory: Denies: Shortness of Breath Gastrointestinal: Denies: Abdominal Pain, Nausea, Vomiting Psychiatric: Denies: Anxiety Hematologic/ Lymphatic: Denies: Easy Bruising, Easy Bleeding - Physical Exam General: Alert, Oriented x3, Cooperative, No apparent distress Cardiovascular: Regular rate Abdomen: Soft, Non Tender, Non-Distended, - - well healed incisions, no PS, sanchez in previous PEG tube site Vital Signs Temp Pulse Resp BP Pulse Ox 97.0 F L 111 H 16 101/58 L 96 05/21/18 14:50 05/21/18 14:50 05/21/18 14:50 05/21/18 14:50 05/21/18 14:50 Oxygen Delivery Method Room Air Weight: 154 lb 4 oz Body Mass Index (BMI) 21.7 Finger Stick Blood Glucose 104 Intake and Output for Last 24 Hours Intake Total 3170 / 3170 1120 / 1120 1189 / 1189 Output Total 100 / 100 200 / 200 Balance 3070 / 3070 1120 / 1120 989 / 989 Microbiology Past 72 Hours 05/18/18 03:20 Urine Culture - Final Urine, Clean Catch Mixed Gram Positive Organisms POC Glucose POC Glucose 115 H Assessment/Plan All Active Problems (Last Reviewed 05/05/18 @ 17:35 by Abimbola Morris NP-C) TIA (transient ischemic attack) (Acute) Stroke-like symptoms (Acute) 70-year-old male with inadvertently pulled PEG tube, replacement with 20 Chinese G-tube The balloon was taken down of the 18 Chinese Sanchez. A 20 Chinese [employer] Endovive G-tube was placed without difficulty. The balloon was blown up with 6 cc of air, the bolster was at 3-1/2 at the skin. A 20 Chinese G-tube, reference [id number], lot [id number] . will check a contrast study prior to using the G-tube. Nivia Maciel M.D. Pager: [phone] [facility] [address] [place] [address], [facility] [address] [place] [address] Office: [phone] Code Visit Inpatient E AND M: [id number] Init Hosp L2 05/23/18 1601 <Electronically signed by Nivia Maciel MD> Date Nivia Maciel MD Cosigner Signature (if applicable): Date CC: Jack Olmedo MD; Nivia Maciel MD Signed ABDOMEN SINGLE VIEW Observed: 05/23/2018 Status: F Source: [place] 12:37 PM [facility] REPOSITORY [facility] Imaging Services [address] [place] [address] Abdomen Single View MR#: [id number] Acct: [id number] Name: NAVEEN AKINS Rep #: [id number] : 1940 M 78 From: David Burr DO PCP: Jack Olmedo MD Status: ADM IN Study: Abdomen Single View Date of Exam: 05/23/18 Exam# [id number] Ordering Dr: Jh Gustafson MD STUDY: X-RAY - ABDOMEN/PELVIS REASON FOR EXAM: Male, 78 years old. PEG tube placement TECHNIQUE: Single frontal view COMPARISON: May 22, 2018 FINDINGS: Normal visualized lung bases. There is an unremarkable bowel gas pattern. There is no demonstrated free abdominal air. Focal calcification over the hepatic shadow similar to previous study. Tortuous aorta. There are surgical clips over the abdomen and pelvis. A percutaneous gastrostomy catheter is noted with administered contrast outlining the gastric lumen and proximal duodenal loop. No contrast extravasation is appreciated. Normal soft tissue structures. Degenerative vertebral changes. RAD/Abdomen Single View IMPRESSION: Percutaneous gastrostomy tube with tip at the body of the stomach. Electronically Signed: David Burr DO at 20:53 EST Tel [phone], Service support , CC: Jack Olmedo MD; Jh Gustafson MD Senior Major Gifts Officer: Signed BEDSIDE GLUCOSE Collected: 05/23/2018 Status: F Source: [place] 6:37 AM [facility] REPOSITORY TYPE CODE TESTS RESULT OUT OF RANGE REFERENCE UNITS LAB L501.080 70-110 mg/dL Normal BEDSIDE GLU 91 Result Comment: MANAGEMENT OF PATIENT CARE PER NURSING PROTOCOL Performed By: #### L501.080 #### [facility] Point of Care [address] [place] [address] ABDOMEN SINGLE VIEW Observed: 05/22/2018 Status: F Source: [place] 12:07 PM [facility] REPOSITORY [facility] Imaging Services [address] [place] [address] Abdomen Single View MR#: [id number] Acct: [id number] Name: NAVEEN AKINS Rep #: [id number] : 1940 78 From: Gigi Rowe MD PCP: Jack Olmedo MD Status: ADM IN Study: Abdomen Single View Date of Exam: 05/22/18 Exam# [id number] Ordering Dr: Jh Gustafson MD STUDY: X-RAY - ABDOMEN/PELVIS REASON FOR EXAM: Male, 78 years old. PEG tube placement. TECHNIQUE: Single AP view of the abdomen / pelvis. COMPARISON: None. FINDINGS: Normal visualized lung bases. Contrast was injected through the PEG tube, and outlines portions of the stomach with no extravasation. This indicates satisfactory positioning. Normal bowel gas pattern. Numerous surgical clips along the medial left abdomen and pelvis. The visualized liver, spleen and kidneys are grossly normal in size and morphology. Normal soft tissue structures. Normal visualized osseous structures. RAD/Abdomen Single View IMPRESSION: Grossly satisfactory position of PEG tube. Electronically Signed: Gigi Rowe MD at 17:07 EST , Service support , CC: Jack Olmedo MD; Jh Gustafson MD Senior Major Gifts Officer: Signed BEDSIDE GLUCOSE Collected: 05/22/2018 Status: F Source: [place] 6:33 AM [facility] REPOSITORY TYPE CODE TESTS RESULT OUT OF REFERENCE UNITS RANGE LAB L501.080 70-110 mg/dL High BEDSIDE GLU 115 Result Comment: MANAGEMENT OF PATIENT CARE PER NURSING PROTOCOL Performed By: #### L501.080 #### [facility] [place] [address] CBC W/DIFF, AUTOMATED Collected: 05/21/2018 Status: F Source: [place] 8:10 AM [facility] REPOSITORY TYPE CODE TESTS RESULT OUT OF RANGE REFERENCE UNITS LAB L100.1000 4.4-11.0 K/mm3 Normal WBC 6.7 LAB L100.1200 4.6-6.2 M/mm3 Low RBC 3.12 LAB L100.1300 13.0-16.5 g/dl Low HGB 9.5 LAB L100.1400 40-54 % Low HCT 29.2 LAB L100.1500 80-94 fL Normal MCV 93.6 LAB L100.1600 27.0-32.0 pg Normal MCH 30.4 LAB L100.1700 32-36 g/gl Normal MCHC 32.5 LAB L100.1810 11.6-14.6 % High RDW CV 15.1 LAB L100.1820 35.1-43.9 fl High RDW SD 49.1 LAB L100.1900 150-450 K/mm3 Normal PLT 222 LAB L100.2000 6.2-12.0 fl Normal MPV 8.8 LAB L100.2100 47-70 % Normal NEUT% 63.2 LAB L100.2200 19-41 % Normal LY% 22.9 LAB L100.2300 0-10 % Normal MONO% 6.5 LAB L100.2400 0-5 % High EO% 6.8 LAB L100.2500 0-1 % Normal BASO% 0.3 LAB L100.2550 0.0-0.9 % Normal IM GRAN % 0.300 Result Comment: IG% - Immature Granulocytes (promyelocytes, myelocytes and metamyelocytes) > 1% indicates that a LEFT SHIFT is Present. LAB L100.2620 2.0-7.7 X10 3/uL Normal Absolute Neut 4.3 LAB L100.2720 0.83-4.51 X10 3/ul Normal Absolute Lymph 1.54 Performed By: #### L100.0100 #### [facility] [address] [place], [place], [address] BASIC METABOLIC Collected: 05/21/2018 Status: F Source: [place] PROFILE (BMP) 8:10 AM [facility] REPOSITORY TYPE CODE TESTS RESULT OUT OF RANGE REFERENCE UNITS LAB L501.0100 74-106 mg/dL Normal GLU 95 Result Comment: Please note revised GLUCOSE reference range effective 2017. LAB L501.1000 7-18 mg/dL High BUN 25 LAB L501.1100 0.70-1.30 mg/dL Normal CREAT,SERUM 1.17 Result Comment: The validity of the calculated GFR AND GFRAA in patients over 70 years has not been determined. Clinical correlation is essential. LAB L501.1110 >60 mL/min Normal EST GFR 64 Result Comment: Non- GFR Calc LAB L501.1115 >60 mL/min Normal EST GFR - AA 78 Result Comment: GFR Calc LAB L501.1255 ml/min Normal Estimated CRCL 51.50 LAB L501.1300 10-20 RATIO High BUN/CRE 21.4 LAB L501.2200 8.5-10 mg/dL Normal .1 CA 9.4 LAB L501.5300 136-14 mmol/L Normal 5 NA 138 LAB L501.5600 3.5-5. mmol/L Normal 1 K 4.0 LAB L501.5900 98-107 mmol/L Normal CL 105 LAB L501.6100 21.0-3 mmol/L Normal 2.0 CO2 25.0 LAB L501.6200 5-15 Normal GAP 8 Performed By: #### L500.2500 #### [facility] [address] [place], [place], [address] BEDSIDE GLUCOSE Collected: 05/21/2018 Status: F Source: [place] 6:32 AM [facility] REPOSITORY TYPE CODE TESTS RESULT OUT OF RANGE REFERENCE UNITS LAB L501.080 70-110 mg/dL Normal BEDSIDE GLU 102 Result Comment: MANAGEMENT OF PATIENT CARE PER NURSING PROTOCOL Performed By: #### L501.080 #### [facility] Point of Care [address] [place] [address] BEDSIDE GLUCOSE Collected: 05/20/2018 Status: F Source: [place] 6:40 AM [facility] REPOSITORY TYPE CODE TESTS RESULT OUT OF RANGE REFERENCE UNITS LAB L501.080 70-110 mg/dL Normal BEDSIDE GLU 100 Result Comment: MANAGEMENT OF PATIENT CARE PER NURSING PROTOCOL Performed By: #### L501.080 #### [facility] Point of Care [address] [place] [address] BEDSIDE GLUCOSE Collected: 05/19/2018 Status: F Source: [place] 6:43 AM [facility] REPOSITORY TYPE CODE TESTS RESULT OUT OF RANGE REFERENCE UNITS LAB L501.080 70-110 mg/dL Normal BEDSIDE GLU 87 Result Comment: MANAGEMENT OF PATIENT CARE PER NURSING PROTOCOL Performed By: #### L501.080 #### [place] [facility] Point of Care [address] [place] [address] DISCHARGE SUMMARY Observed: 05/18/2018 Status: F Source: [place] 9:38 PM [facility] REPOSITORY [facility] Medical Records Department [address] [place] [address] Discharge Summary 05/18/18 2132 MR#: [id number] Acct: [id number] Name: NAVEEN AKINS Rep #: [id number] : 1940 78 From: Jh Gustafson MD PCP: Jack Olmedo MD Status: ADM IN Location: [place] [address] Discharge Date and Diagnosis Date of Admission: 05/06/18 Date of Discharge: 06/01/18 - Secondary Discharge Diagnosis Chronic Problems (Last Reviewed 05/05/18 @ 17:35 by Abimbola Morris NP-C) Malnutrition (Chronic) Anoxic encephalopathy (Chronic) Abdominal aortic aneurysm, ruptured (Chronic) 01/11/2018 Hyperlipidemia (Chronic) Iron deficiency anemia (Chronic) GERD (gastroesophageal reflux disease) (Chronic) Dysphagia (Chronic) Anemia (Chronic) Vasovagal syndrome (Chronic) Coronary artery disease (Chronic) Coronary artery disease (Chronic) Hypertension (Chronic) Hospital Course and Treatment Imaging Results: 05/07/18 10:45 Diet: Regular Diet Food consistency:: Mechanical Soft/Ground Liquid Consistency:: Artemus Thick Dietary Modifications:: Artemus Thick Liquids Mechanical Soft Diet Type of Dietary Supplement:: Ensure Clear Is pt able to select menu?: No Diet Comments: BUILT UP UTENSILS-supervised meals-puree sides if pt/fam reqst-prune juice Clinical Impression(s) from Imaging Studies Chest X-Ray 05/07/18 15:38 KUB X-Ray 05/07/18 15:38 Labs (Last 48 Hours) Urine Color Yellow Urine Clarity Clear Urine pH 7.0 Ur Specific [place] 1.010 Urine Protein Negative Consultations 05/09/18 04:41 Consult: Onc/Wound/lead oracle developer Routine Comment: Reason for Consult:: Trach removed 04/16, not healed, increased drainage Operations: None Procedures: None Summary of Care Provided: The patient is a 78 year old Male with below past medical history significant for recent emergent ruptured AAA repair, hospitalized for stroke symptoms, diagnosed with TIA superimposed on encephalopathy, admitted to TCU with debility, here for rehabilitation, strengthening, prior to disposition determination. Resident had trach, recently decannulated. He has PEG with Tubefeeding, but he is eating and trying to increase oral intake. Resident has been having diaphoretic episodes with urination, I believe it is autonomic dysfunction secondary to anoxic encephalopathy from ruptured AAA. My plan has been reassurance. Family does not want any unnecessary medications. Discharge to [facility], Skilled for PT/OT/ST. - Physical Exam Vital Signs Temp Pulse Resp BP Pulse Ox 99.2 F H 85 18 109/55 L 94 05/18/18 15:51 05/18/18 15:51 05/18/18 15:51 05/18/18 15:51 05/18/18 15:51 Oxygen Delivery Method Room Air Weight: 71.327 kg Body Mass Index (BMI) 21.7 Finger Stick Blood Glucose 104 Intake and Output for Last 24 Hours Intake Total 460 / 460 3352 / 3352 1711 / 1711 Balance 460 / 460 3352 / 3352 1711 / 1711 Laboratory Tests Past 24 Hrs Urine Color Yellow Urine Clarity Clear POC Glucose POC Glucose 93 Discharge Diet: No Restrictions, - - Mechanical Soft, Artemus thick. Discharge Activity: Return to Normal Activity, Use Walker Weight Bearing Status: Weight bearing as tolerated Call your doctor if you observe: Fever of 101 or Higher, Inability to urinate, Inability to have a bowel movement, Shortness of breath, Chest pain, Uncontrolled pain Home Medications: Medications to take at Discharge Ferrous Sulfate Syrup 300 mg GT BID 03/28/18 Heparin Injection 5,000 units SUBCUT BID 03/28/18 Lansoprazole [Prevacid] 30 mg GT DAILY 03/28/18 Acetaminophen Liquid [Tylenol Liquid] 650 mg GT Q4H PRN PRN 05/05/18 Melatonin 3 mg PO QHS 05/05/18 Menthol/Lanolin/Calamine/Znox [Calmoseptine Ointment] 1 applic TOPICAL BID 05/05/18 Nut.sup,Spec,Lac-Free,Iron/Fos [Twocal Hn Liquid] 40 ml GT DAILY 05/05/18 Polyvinyl Alcohol [Artificial Tears] 1 drop OP Q4H PRN PRN 05/05/18 Aspirin [Aspirin, Baby] 81 mg GT DAILY@0800 05/06/18 Atorvastatin Calcium [Lipitor] 40 mg GT QHS 05/06/18 Bisacodyl [Dulcolax] 10 mg RECTAL DAILY PRN suppos. 05/18/18 Ipratropium/Albuterol Sulfate [Duoneb] 3 ml INHALATION Q6HWA.RT PRN ampul.neb 05/18/18 Nystatin Powder [Mycostatin Powder] 1 applic TOPICAL 0600,2200 bottle 05/18/18 Polyethylene Glycol 3350 [Miralax] 17 gm PO DAILY packet 05/18/18 Senna/Docusate Sodium [Senokot-S] 2 tablet PO BID tablet 05/18/18 Sodium Chloride 0.65% [Buchanan Nasal [place]] 2 spray NASAL BID PRN PRN spray.btl 05/18/18 Primary Care Physician: Jack Olmedo MD [Primary Care Provider] - Please follow up with your Primary Care Physician in: 1 week. Please Follow Up With: Abdullahi Styles MD When: 2-3 weeks Please Follow Up With: PET SCAN HERE AT [facility] Disposition: [facility] facility Minutes spent on discharge:: 35 Patient Condition:: Stable - Naveen tends to have minor changes in condition every other day, most episodes can be managed with reassurance, family very involved but reasonable. Medical Necessity - Tobacco Use Smoking Status: Never smoker Tobacco Use: Non-smoker Meaningful Use Info Meaningful Use Diagnoses (Choose all that apply): None applicable 05/18/182137 <Electronically signed by Jh Gustafson MD> Date Jh Gustafson MD Cosigner Signature (if applicable): Date CC: Jack Olmedo MD; Jh Gustafson MD Signed TRANSFER TO [facility] Observed: 05/18/2018 Status: F Source: [facility] 9:32 PM [facility] REPOSITORY [facility] Medical Records Department [address] [place] [address] Transfer to [facility] MR#: [id number] Acct: [id number] Name: NAVEEN AKINS Rep #: [id number] : 1940 78 From: Jh Gustafson MD PCP: Jack Olmedo MD Status: ADM IN NAVEEN AKINS [id number] (Patient) (Health Ins. Claim No.) (Day of Discharge to Facility) Certification of patient admission REQUIRED AT TIME OF ADMISSION. I CERTIFY THAT POST-HOSPITAL ECF SERVICES ARE REQUIRED TO BE GIVEN ON AN IN-PATIENT BASIS BECAUSE OF THE ABOVE NAMED PATIENT'S NEED FOR SKILLED NURSING CARE ON A CONTINUING BASIS FOR THE CONDITION(S) FOR WHICH HE/SHE WAS RECEIVING IN-PATIENT HOSPITAL SERVICES PRIOR TO HIS/HER TRANSFER TO THE F. 05/18/182131 <Electronically signed by Jh Gustafson MD> Date Jh Gustafson MD - Diet 05/07/18 10:45 Diet: Regular Diet Food consistency:: Mechanical Soft/Ground Liquid Consistency:: Artemus Thick Dietary Modifications:: Artemus Thick Liquids Mechanical Soft Diet Type of Dietary Supplement:: Ensure Clear Is pt able to select menu?: No Diet Comments: BUILT UP UTENSILS-supervised meals-puree sides if pt/fam reqst-prune juice - Routine Orders/Code Status Suppository Type: Dulcolax 10mg Suppository Frequency: Daily PRN Code Status: Full Code - Wound(s) Old trach site Wound Type: healing wound Dressing Change: Dry Sterile Dressing Bilateral heels Wound Type: blanchable redness Dressing Change: Mepilex 05/07 - Therapies Weight Bearing: Weight bearing as tolerated Extremity Affected:: Bilateral Lower Physical Therapy: Eval and Treat Occupational Therapy: Eval and Treat Speech Therapy: Eval and Treat - Problem/Diagnosis (1) Anoxic encephalopathy Status: Chronic Current Visit: Yes (2) TIA (transient ischemic attack) Status: Acute Current Visit: No (3) Abdominal aortic aneurysm, ruptured Status: Chronic Comment: 01/11/2018 Current Visit: No (4) Hyperlipidemia Status: Chronic Current Visit: No (5) Iron deficiency anemia Status: Chronic Current Visit: No (6) GERD (gastroesophageal reflux disease) Status: Chronic Current Visit: No (7) Dysphagia Status: Chronic Current Visit: No (8) Coronary artery disease Status: Chronic Current Visit: No (9) Hypertension Status: Chronic Current Visit: No - Allergies/Procedures Done in Hospital Allergies/Adverse Reactions: Allergies famotidine [From Pepcid] Adverse Reaction (Verified 05/07/18 19:47) Low blood pressure metoclopramide [From Reglan] Adverse Reaction (Verified 05/07/18 19:47) Other - Type of Care/Length of Stay Estimated LOS: More Than 30 Days Type of Care Needed: Skilled Rehab Potential: Poor Prognosis: Poor - Additional Orders/Day of Discharge Day of Discharge: 06/01/18 - Dietary and Speech Recommendations Dietitian Recommendations/Changes: Will continue to offer magic cup ice cream with meals for increased nutrition if consumed. As long as po intake CONSISTENTLY improved, rec change to 12 hour nocturnal feedings at 40 cc/hr w/ 50 cc H2O flush every 4 hours to provide 960 braxton / 40 gm pro/day. - Follow Up Care Primary Care Physician: Jack Olmedo MD [Primary Care Provider] - Please follow up with your Primary Care Physician in: 1 week. Please Follow Up With: Abdullahi Styles MD When: 2-3 weeks Please Follow Up With: PET SCAN HERE AT [facility] 05/18/18 2962 <Electronically signed by Jh Gustafson MD> Date Jh Gustafson MD CC: Jack Olmedo MD Signed BEDSIDE GLUCOSE Collected: 05/18/2018 Status: F Source: [place] 6:51 AM [facility] REPOSITORY TYPE CODE TESTS RESULT OUT OF RANGE REFERENCE UNITS LAB L501.080 70-110 mg/dL Normal BEDSIDE GLU 93 Result Comment: MANAGEMENT OF PATIENT CARE PER NURSING PROTOCOL Performed By: #### L501.080 #### [facility] Point of Care [address] [place] [address] URINALYSIS, COMPLETE Collected: 05/18/2018 Status: F Source: [place] 3:20 AM [facility] REPOSITORY Order Comment: Order Date: 05/18/18 Comments: straight cath How was Urine Obtained? CLEAN CATCH TYPE CODE TESTS RESULT OUT OF RANGE REFERENCE UNITS LAB L400.3000 Yellow COLOR Normal Yellow LAB L400.3050 Clear Normal CLARITY Clear LAB L400.3200 Normal mg/dl Normal GLUCOSE, UR Normal LAB L400.3300 Negative mg/dL Normal BILIRUBIN URINE Negative LAB L400.3400 Negative mg/dl Normal KETONE UR Negative LAB L400.3465 1.002-1.030 Normal SP.GR. DIPSTX 1.010 LAB L400.3550 5.0 - 8.0 pH UR Normal 7.0 LAB L400.3600 Negative mg/dl PROT Normal DIPSTX Negative LAB L400.3700 Normal mg/dl Normal UROBILI Normal LAB L400.3750 Negative Normal NITRITE UR Negative LAB L400.3780 Negative /ul Normal OCCULT BLOOD-UR Negative LAB L400.3800 Negative /ul LEUK Normal ESTERASE Negative LAB L400.4050 0-5 /hpf WBC 0 Normal SEEN LAB L400.4100 0-5 /hpf 0 Normal RBC-UA SEEN LAB L400.4150 0-5 /hpf SQUAM Normal EPI 0-5 SEEN LAB L400.4300 None Seen /hpf 0 Normal BACTERIA SEEN LAB L400.4350 <or=2+ /hpf 0 Normal MUCUS, URINE SEEN Performed By: #### L400.0001 #### [facility] [address] [place], [address] Observed: 05/18/2018 Status: F Source: [place] CULTURE, URINE 3:20 AM [facility] REPOSITORY Order Date: 05/18/18 Urine Culture ORGANISM 1: Mixed Gram Positive Organisms [place] Count 25,000-50,000 MIX CULTURE Mixed contaminants. Submit a new specimen if indicated. Performed By: #### M100.0650 #### [facility] [address] [place], [address] MODIFIED BARIUM Observed: 05/17/2018 Status: F Source: [place] SWALLOW STUDY 10:36 AM [facility] REPOSITORY [facility] Speech Pathology [address] [place] [address] Modified Barium Swallow Study MR#: [id number] Acct: [id number] Name: NAVEEN AKINS Rep #: [id number] : 1940 78 From: Viktoriya Hickey [facility]-SPOOLER OPERATOR, M.A. PRIMARY / SECONDARY DIAGNOSIS: Moderate Oropharyngeal Dysphagia (R13.12) REFERRING PHYSICIAN: Dr. Gustafson CURRENT DIET: NPO with PEG supplementation for all nutrition/hydration/medication DENTITION: natural teeth MENTAL STATUS: Alert and oriented to name and RESPIRATORY STATUS: oxygenating on room air; breath sounds clear upon auscultation per most recent superintendent factory. PREVIOUS MODIFIED BARIUM SWALLOW STUDY: unknown to this SPOOLER OPERATOR prior to [facility] admission REASON FOR REFERRAL: history of dysphagia MEDICAL HISTORY: Pt is a 78/m with pmhx significant for ruptured abdominal aortic aneurysm, cardiac arrest,anoxic encephalopathy, hyperlipidemia, acute kidney injury, tachycardia, disseminated intravascular coagulation, ileus, iron deficiency anemia, GERD, dysphagia, coronary artery disease, and HTN. Pt presented to ED on 01/11/2018 with syncope, left flank pain, diaphoresis, and nausea. He was diagnosed with 6CM abdominal aortic aneurysm with appointment with vascular surgery 01/12/2018. 01/11/2018 CT scan of abdomen/pelvis showed ruptured abdominal aortic aneurysm. Pt then intubated and transfused 4 units of blood. The pt was lifeflighted to [facility] where on 01/12/2018 Dr. Paniagua performed emergent AAA repair. Pt then transferred to [facility] for recovery where he received a trach, PEG and condom catheter on 01/27/2018. Throughout this course of recovery, pt has had code blue called 5x due to vasovagal response thought to be secondary to Famotidine. Family was told at that time not to expect full recovery. Pt found also to have HCAP which was being treated with IV antibiotics. Pt currently on [facility] TCU for rehabilitation. While on TCU, pt has had trach removed 04/16/2018 and has been tolerating therapy (PT, OT, and ST). STUDY FINDINGS: Patient participated in a Modified Barium Swallow (MBS) study on . Dr. Steel was the radiologist present for this evaluation. This study was recorded in the lateral view and images were sent to PACs for storage. The following consistencies were presented to this patient for analysis of oropharyngeal swallow function: thin liquid, nectar thickliquid, honey thick liquid, pudding, and a regular textured, Kamila Doone cookie. Results of the MBS are as follows: PENETRATION / ASPIRATION SCALE (COLEMAN): 1 = does not enter airway 2 = enters airway/above vocal folds/ejected 3 = enters airway/above vocal folds/not ejected 4 = enters airway/contacts vocal folds/ejected 5 = enters airway/contacts vocal folds/not ejected 6 = enters airway/below vocal folds/ejected 7 = enters airway/below vocal folds/not ejected despite effort 8 = enters airway/below vocal folds/no effort PENETRATION / ASPIRATION SCALE (SCORE): Honey thickened liquid via tsp: 1 Honey thickened liquid via cup: 2 Artemus thickened liquid via cup: 2 Artemus thickened liquid via cup:3 Thin liquids via tsp: 2 Thin liquids via tsp: 2 Thin liquids via cup (single sip no chin tuck): 5 Thin liquids via cup (single sip with chin tuck):4 Thin liquids(single sip with chin tuck): 2 Puddin Regular textured cookie: 1 IMPRESSION: Diagnosis: Moderate oropharyngeal dysphagia (R13.12) ORAL PHASE CHARACTERIZED BY: LABIAL SEAL: interlabial escape, no progression to anterior lip TONGUE CONTROL DURING BOLUS MANIPULATION: posterior escape of greater than half of bolus BOLUS PREPARATION / MASTICATION: slow prolonged chewing/mashing with complete recollection BOLUS TRANSPORT / LINGUAL MOTION: repetitive/disorganized tongue motion ORAL RESIDUE: residue collection on oral structures PHARYNGEAL PHASE CHARACTERIZED BY: INITIATION OF PHARYNGEAL SWALLOW: bolus head in pyriforms at first hyoid excursion SOFT PALATE ELEVATION: trace column of contrast/air between soft palate and pharyngeal wall LARYNGEAL ELEVATION: partial superior movement of thyroid cartilage/partial approximation of arytenoids cartilage to epiglottic petiole ANTERIOR HYOID EXCURSION: partial anterior movement EPIGLOTTIC MOVEMENT: complete epiglottic inversion LARYNGEAL VESTIBULE CLOSURE AT HEIGHT OF SWALLOW: incomplete laryngeal vestibule closure with narrow column of air/contrast in laryngeal vestibule PHARYNGEAL STRIPPING WAVE: pharyngeal stripping wave present / complete PHARYNGOESOPHAGEAL SEGMENT OPENING: partial distension and partial duration; partial obstruction of flow TONGUE BASE RETRACTION: narrow column of contrast between tongue base and posterior pharyngeal wall PHARYNGEAL RESIDUE: collection of residue within or on pharyngeal structures ESOPHAGEAL PHASE CHARACTERIZED BY: ESOPHAGEAL BOLUS CLEARANCE IN THE UPRIGHT POSITION: *could not view EFFECTS OF TREATMENT STRATEGIES ATTEMPTED: Chin tuck posture = mildly effective at decreasing penetration with thin liquids, however pt would require extensive training for proper execution prior to consideration for advancement. DIET TEXTURE RECOMMENDATIONS: Will recommend a honey thickened liquids and puree textures. COMPENSATORY STRATEGIES RECOMMENDED: Supervised meals/drinks, only feed when alert, reduced bolus volume, reduced rate of intake, seated upright at 90 degrees during PO intake, remain upright for 30-60 minutes post meal (GERD precaution), and medications crushed (if able) with purees. INTERPRETATION OF RESULTS: Patient presents with moderate oropharyngeal dysphagia (R13.12) secondary to AAA resulting in intubation and later tracheostomy. Oral phase primarily marked by moderate mastication inefficiency and suboptimal lingual control along with delayed swallow onset resulting in premature bolus loss. Pharyngeal phase primarily marked by delayed pharyngeal swallow onset timing resulting in penetration with nectar thick liquids, thin liquids, and trace amounts of honey thick liquids (when presented in larger volume via cup). Reduced laryngeal elevation present with adequate pharyngeal stripping wall. Upper esophageal segment narrowing apparent resulting in pharyngeal retention. No aspiration noted throughout trials. RECOMMENDATIONS: Would consider repeat Modified Barium Swallow Study in 3-4 weeks (if clinically appropriate) prior to consideration of advancement of liquids. Advancement of textures can be done following bedside evaluation as patient is able to tolerate. Would consider training and implementation of oropharyngeal strengthening exercises to facilitate improved oropharyngeal strength and coordination as well as compensatory strategy training with patient, family, and staff to reduce risks of penetration/aspiration. ADDITIONAL COMMENTS/RECOMMENDATIONS: Results and recommendations were discussed with the patient and family following MBS completion, with the patient/family verbalizing understanding and agreement with all recommendations and education provided. IMAGE COUNT: [id number] G-CODES: SWALLOWING [id number] Current Status: CJ SWALLOWING G8997 Goal Status: SILAS Hickey MA,CCC-SPOOLER OPERATOR 05/17/18 1036 <Electronically signed by Viktoriya Hickey [facility]-SPOOLER OPERATOR, M.A.> Date Viktoriya Hickey CCC-SPOOLER OPERATOR, M.A. Co-Signature Required for all Medicare patients Date/Time Co-Signature CC: BEDSIDE GLUCOSE Collected: 05/17/2018 Status: F Source: [place] 6:41 AM [facility] REPOSITORY TYPE CODE TESTS RESULT OUT OF REFERENCE UNITS RANGE LAB L501.080 70-110 mg/dL High BEDSIDE GLU 113 Result Comment: MANAGEMENT OF PATIENT CARE PER NURSING PROTOCOL Performed By: #### L501.080 #### [facility] Point of Care [address] [place] [address] BEDSIDE GLUCOSE Collected: 05/16/2018 Status: F Source: [place] 6:41 AM [facility] REPOSITORY TYPE CODE TESTS RESULT OUT OF RANGE REFERENCE UNITS LAB L501.080 70-110 mg/dL Normal BEDSIDE GLU 99 Result Comment: MANAGEMENT OF PATIENT CARE PER NURSING PROTOCOL Performed By: #### L501.080 #### [facility] Point of Care [address] [place] [address] BEDSIDE GLUCOSE Collected: 05/15/2018 Status: F Source: [place] 6:35 AM [facility] REPOSITORY TYPE CODE TESTS RESULT OUT OF RANGE REFERENCE UNITS LAB L501.080 70-110 mg/dL Normal BEDSIDE GLU 98 Result Comment: MANAGEMENT OF PATIENT CARE PER NURSING PROTOCOL Performed By: #### L501.080 #### [facility] Point of Care [address] [place] [address] BEDSIDE GLUCOSE Collected: 05/14/2018 Status: F Source: [place] 8:20 PM [facility] REPOSITORY TYPE CODE TESTS RESULT OUT OF RANGE REFERENCE UNITS LAB L501.080 70-110 mg/dL Normal BEDSIDE GLU 99 Result Comment: MANAGEMENT OF PATIENT CARE PER NURSING PROTOCOL Performed By: #### L501.080 #### [facility] Point of Care [address] [place] [address] BEDSIDE GLUCOSE Collected: 05/14/2018 Status: F Source: [place] 12:02 PM [facility] REPOSITORY TYPE CODE TESTS RESULT OUT OF REFERENCE UNITS RANGE LAB L501.080 70-110 mg/dL High BEDSIDE GLU 122 Result Comment: MANAGEMENT OF PATIENT CARE PER NURSING PROTOCOL Performed By: #### L501.080 #### [facility] Point of Care [address] [place] [address] BEDSIDE GLUCOSE Collected: 05/14/2018 Status: F Source: [place] 6:39 AM [facility] REPOSITORY TYPE CODE TESTS RESULT OUT OF RANGE REFERENCE UNITS LAB L501.080 70-110 mg/dL Normal BEDSIDE GLU 92 Result Comment: MANAGEMENT OF PATIENT CARE PER NURSING PROTOCOL Performed By: #### L501.080 #### [facility] Point of Care [address] [place] [address] CBC W/DIFF, AUTOMATED Collected: 05/14/2018 Status: F Source: [place] 5:17 AM [facility] REPOSITORY TYPE CODE TESTS RESULT OUT OF RANGE REFERENCE UNITS LAB L100.1000 4.4-11.0 K/mm3 Normal WBC 5.7 LAB L100.1200 4.6-6.2 M/mm3 Low RBC 3.12 LAB L100.1300 13.0-16.5 g/dl Low HGB 9.2 LAB L100.1400 40-54 % Low HCT 28.6 LAB L100.1500 80-94 fL Normal MCV 91.7 LAB L100.1600 27.0-32.0 pg Normal MCH 29.5 LAB L100.1700 32-36 g/gl Normal MCHC 32.2 LAB L100.1810 11.6-14.6 % High RDW CV 15.0 LAB L100.1820 35.1-43.9 fl High RDW SD 48.9 LAB L100.1900 150-450 K/mm3 Normal PLT 220 LAB L100.2000 6.2-12.0 fl Normal MPV 9.3 LAB L100.2100 47-70 % Normal NEUT% 57.5 LAB L100.2200 19-41 % Normal LY% 26.9 LAB L100.2300 0-10 % Normal MONO% 8.1 LAB L100.2400 0-5 % High EO% 7.1 LAB L100.2500 0-1 % Normal BASO% 0.2 LAB L100.2550 0.0-0.9 % Normal IM GRAN % 0.200 Result Comment: IG% - Immature Granulocytes (promyelocytes, myelocytes and metamyelocytes) > 1% indicates that a LEFT SHIFT is Present. LAB L100.2620 2.0-7.7 X10 3/uL Normal Absolute Neut 3.3 LAB L100.2720 0.83-4.51 X10 3/ul Normal Absolute Lymph 1.52 Performed By: #### L100.0100 #### [facility] [address] [place], [address] BASIC METABOLIC Collected: 05/14/2018 Status: F Source: [place] PROFILE ([facility]) 5:17 AM [facility] REPOSITORY TYPE CODE TESTS RESULT OUT OF RANGE REFERENCE UNITS LAB L501.0100 74-106 mg/dL Normal GLU 99 Result Comment: Please note revised GLUCOSE reference range effective 2017. LAB L501.1000 7-18 mg/dL High BUN 29 LAB L501.1100 0.70-1.30 mg/dL Normal CREAT,SERUM 1.29 Result Comment: The validity of the calculated GFR AND GFRAA in patients over 70 years has not been determined. Clinical correlation is essential. LAB L501.1110 >60 mL/min Low EST GFR 57 Result Comment: Non- GFR Calc LAB L501.1115 >60 mL/min Normal EST GFR - AA 69 Result Comment: GFR Calc LAB L501.1255 ml/min Normal Estimated CRCL 46.86 LAB L501.1300 10-20 RATIO High BUN/CRE 22.5 LAB L501.2200 8.5-10 mg/dL Normal .1 CA 9.7 LAB L501.5300 136-14 mmol/L Normal 5 NA 139 LAB L501.5600 3.5-5. mmol/L Normal 1 K 4.0 LAB L501.5900 98-107 mmol/L Normal CL 106 LAB L501.6100 21.0-3 mmol/L Normal 2.0 CO2 24.0 LAB L501.6200 5-15 Normal GAP 9 Performed By: #### L500.2500 #### [facility] [address] [place], [address] BEDSIDE GLUCOSE Collected: 05/13/2018 Status: F Source: [place] 6:42 AM [facility] REPOSITORY TYPE CODE TESTS RESULT OUT OF RANGE REFERENCE UNITS LAB L501.080 70-110 mg/dL Normal BEDSIDE GLU 101 Result Comment: MANAGEMENT OF PATIENT CARE PER NURSING PROTOCOL Performed By: #### L501.080 #### [facility] Point of Care [address] [facility] [place] [address] BEDSIDE GLUCOSE Collected: 05/12/2018 Status: F Source: [place] 6:54 AM [facility] REPOSITORY TYPE CODE TESTS RESULT OUT OF RANGE REFERENCE UNITS LAB L501.080 70-110 mg/dL Normal BEDSIDE GLU 100 Result Comment: MANAGEMENT OF PATIENT CARE PER NURSING PROTOCOL Performed By: #### L501.080 #### [facility] Point of Care [address] [facility] [place] [address] ABDOMEN/PEL W ORAL CONT Observed: 05/11/2018 Status: F Source: [place] ONLY 11:21 PM [facility] REPOSITORY [facility] Imaging Services [address] [place] [address] Abdomen/Pel W ORAL Cont Only MR#: [id number] Acct: [id number] Name: NAVEEN AKINS Kaylah Rep #: [id number] : 1940 M 78 From: Miya Silva MD PCP: Jack Olmedo MD Status: REG CLI Study: Abdomen/Pel W ORAL Cont Only Date of Exam: 05/12/18 Exam# [id number] Ordering Dr: Jh Gustafson MD STUDY: CT ABDOMEN AND PELVIS WITHOUT CONTRAST REASON FOR EXAM: Male, 78 years old. Increasing lower abdominal pain. RADIATION DOSAGE (If Supplied By Facility): CTDIvol = ( 14.78 ) mGy, DLP = ( 745.72 ) mGycm TECHNIQUE: Transaxial images were obtained from the dome of the diaphragm to the symphysis pubis without oral contrast, and without intravenous contrast. Sagittal and coronal images were reconstructed. Individualized dose optimization techniques were used for this CT. COMPARISON: CT of the abdomen and pelvis dated February 05, 2018. FINDINGS: There appears to be bilateral basilar dependent atelectasis with groundglass attenuation. The visualized portions of the heart are within normal limits. There are vascular calcifications of the coronary arteries. Normal liver. There is non-visualization of the gallbladder, which may be secondary to either contraction or a prior cholecystectomy. Normal spleen. There is diffuse atrophy of the pancreas. Normal bilateral adrenal glands. Normal right kidney. Normal left kidney. Normal visualized stomach. There is no evidence for dilated bowel, ascites or pneumoperitoneum. Stool is visible throughout the colon with scattered colonic diverticula. There is large amount of stool in rectum. The appendix is visualized and appears normal. The patient apparently has had repair of abdominal aortic aneurysm. A fatty-containing masslike process is visible just left of the abdominal aorta presumably related to the repair. Surgical clips are visible in around the aorta are related to the repair. Normal inferior vena cava. Normal retroperitoneum. Normal urinary bladder. Normal visualized prostate gland. There is a right-sided inguinal hernia containing bowel. There are diffuse degenerative changes of the visualized lumbar spine. CT/Abdomen/Pel W ORAL Cont Only IMPRESSION: 1. Patient has a right sided inguinal hernia containing bowel. 2. Possible rectal stool impaction. 3. Sequela of repair of abdominal aortic aneurysm. 4. Bilateral basilar dependent atelectasis and/or early airspace disease. Electronically Signed: Miya Silva MD at 2:13 EST , Service support , CC: Jack Olmedo MD; Jh Gustafson MD Senior Major Gifts Officer: Signed BEDSIDE GLUCOSE Collected: 05/11/2018 Status: F Source: [place] 6:36 AM [facility] REPOSITORY TYPE CODE TESTS RESULT OUT OF RANGE REFERENCE UNITS LAB L501.080 70-110 mg/dL Normal BEDSIDE GLU 107 Result Comment: MANAGEMENT OF PATIENT CARE PER NURSING PROTOCOL Performed By: #### L501.080 #### [facility] Point of Care [address] [place] [address] BEDSIDE GLUCOSE Collected: 05/10/2018 Status: F Source: [place] 6:27 AM [facility] REPOSITORY TYPE CODE TESTS RESULT OUT OF RANGE REFERENCE UNITS LAB L501.080 70-110 mg/dL Normal BEDSIDE GLU 101 Result Comment: MANAGEMENT OF PATIENT CARE PER NURSING PROTOCOL Performed By: #### L501.080 #### [facility] Point of Care [address] [place] [address] 12 LEAD ELECTROCARDIOGRAM Observed: 05/09/2018 Status: F Source: [place] 3:46 PM [facility] [place] REPOSITORY [facility] Cardiovascular Services [address] [place] [address] 12 Lead EKG 05/05/18 1043 MR#: [id number] Acct: [id number] Name: NAVEEN AKINS Kaylah Rep #: [id number] : 1940 78 From: Naveen Huffman MD Attending Dr: Corey Arizmendi Status: DIS IN Ordering Dr: Corey Arizmendi MD Date: 05/05/18 Location: [facility] Sex: M C Admitted: 05/05/18 Test Reason : Blood Pressure : / mmHG Vent. Rate : 080 BPM Atrial Rate : 080 BPM P-R Int : 120 ms QRS Dur : 080 ms QT Int : 418 ms P-R-T Axes : 011 -23 021 degrees QTc Int : 482 ms Sinus rhythm with occasional Premature ventricular complexes Leftward axis Confirmed by NAVEEN HUFFMAN MD ([id number]), purchasing expeditor KATHY SILVA ([id number]) on 05/09/2018 3:45:49 PM Referred By: ARRON Confirmed By:NAVEEN HUFFMAN MD 05/09/18 4955 Date Naveen Huffman MD CC: Jack Olmedo MD; Corey Arizmendi Signed 12 LEAD ELECTROCARDIOGRAM Observed: 05/09/2018 Status: F Source: [place] 3:35 PM [facility] REPOSITORY [facility] Cardiovascular Services [address] [place] [address] 12 Lead EKG 05/04/18 2346 MR#: [id number] Acct: [id number] Name: NAVEEN AKINS Rep #: [id number] : 1940 78 From: Naveen Huffman MD Attending Dr: Corey Arizmendi Status: DIS IN Ordering Dr: Yuri Infante MD Date: 05/04/18 Location: [facility] Sex: M C Admitted: 05/05/18 Test Reason : NEURO S/SX Blood Pressure : / mmHG Vent. Rate : 078 BPM Atrial Rate : 078 BPM P-R Int : 166 ms QRS Dur : 074 ms QT Int : 384 ms P-R-T Axes : 016 -34 -33 degrees QTc Int : 437 ms Normal sinus rhythm with sinus arrhythmia Left axis deviation Nonspecific ST and T wave abnormality Abnormal ECG Confirmed by HEATHER LOREDO, NAVEEN ([id number]), purchasing expeditor KATHY SILVA ([id number]) on 05/09/2018 3:34:49 PM Referred By: ARELIS Confirmed By:NAVEEN HUFFMAN MD 05/09/18 1534 Date Naveen Huffman MD CC: Jack Olmedo MD; Corey Arizmendi; Yuri Infante MD Signed BEDSIDE GLUCOSE Collected: 05/09/2018 Status: F Source: [place] 6:37 AM [facility] REPOSITORY TYPE CODE TESTS RESULT OUT OF RANGE REFERENCE UNITS LAB L501.080 70-110 mg/dL Normal BEDSIDE GLU 102 Result Comment: MANAGEMENT OF PATIENT CARE PER NURSING PROTOCOL Performed By: #### L501.080 #### [facility] Point of Care [address] [place] [address] HISTORY AND PHYSICAL Observed: 05/08/2018 Status: F Source: [place] EXAM 8:35 AM [facility] REPOSITORY [facility] Medical Records Department [address] [place] [address] History and Physical 05/06/18 1517 MR#: [id number] Acct: [id number] Name: NAVEEN AKINS Rep #: [id number] : 1940 78 From: Jh Gustafson MD PCP: Jack Olmedo MD Status: ADM IN Y Location: TCU [place] [address] Problem List (1) Anoxic encephalopathy Status: Chronic (2) TIA (transient ischemic attack) Status: Acute (3) Abdominal aortic aneurysm, ruptured Status: Chronic Comment: 01/11/2018 (4) Hyperlipidemia Status: Chronic Qualifiers: (5) Iron deficiency anemia Status: Chronic Qualifiers: (6) GERD (gastroesophageal reflux disease) Status: Chronic Qualifiers: (7) Dysphagia Status: Chronic Qualifiers: (8) Coronary artery disease Status: Chronic (9) Hypertension Status: Chronic Qualifiers: History of Present Illness Date of Admission: 05/06/18 Chief Complaint: Here for rehabilitation, strengthening, prior to disposition determination. The patient is a 78 year old Male with below past medical history significant for emergent repair of ruptured abdominal aortic aneurysm with followin05/04/2018 TCU resident left facial droop, left sided weakness, stroke team activated. 05/05/2018 Admit to Hospital. 05/04/2018 CT brain negative for acute infarct. Chronic left basal ganglia infarct. Sinusitis. 05/04/2018 CTA head negative. 05/04/[address] Styles thought TIA superimposed on encephalopathy. 05/05/2018 MRI shannon negative acute infarct. Old right lacunar infarct. 05/05/2018 Echo left ventricular systolic function normal. EF 60%. No diastolic dysfunction. 05/06/2018 Admit to TCU with debility, here for rehabilitation, strengthening, prior to disposition determination. Past Medical History Past Medical History (Chronic Problems): Chronic Problems (Last Reviewed 05/05/18 @ 17:35 by Abimbola Morris, GILBERTO-C) Malnutrition (Chronic) Anoxic encephalopathy (Chronic) Abdominal aortic aneurysm, ruptured (Chronic) 01/11/2018 Hyperlipidemia (Chronic) Iron deficiency anemia (Chronic) GERD (gastroesophageal reflux disease) (Chronic) Dysphagia (Chronic) Anemia (Chronic) Vasovagal syndrome (Chronic) Coronary artery disease (Chronic) Coronary artery disease (Chronic) Hypertension (Chronic) Medical History: Medical History (Last Reviewed 05/05/18 @ 17:35 by RICA Rosenberg) Abdominal aortic aneurysm, ruptured (Chronic) I71.3 01/11/2018 Cardiac arrest (Inactive) I46.9 Hyperlipidemia (Chronic) E78.5 Iron deficiency anemia (Chronic) D50.9 GERD (gastroesophageal reflux disease) (Chronic) K21.9 Dysphagia (Chronic) R13.10 Anemia (Chronic) D64.9 Vasovagal syndrome (Chronic) R55 Coronary artery disease (Chronic) I25.10 Coronary artery disease (Chronic) I25.10 Hypertension (Chronic) I10 Allergies famotidine [From Pepcid] Adverse Reaction (Verified 05/03/18 11:22) Low blood pressure metoclopramide [From Reglan] Adverse Reaction (Verified 05/03/18 11:22) Other Home Medications: Ambulatory Orders Medication Instructions Recorded Docusate Sodium [COLACE LIQUID] 100 mg GT BID 03/28/18 Ferrous Sulfate Syrup 300 mg GT BID 03/28/18 Heparin Injection 5,000 units SUBCUT BID 03/28/18 Surgical History: Surgical History (Last Reviewed 05/05/18 @ 17:35 by Abimbola Morris NP-Stephanie) H/O abdominal aortic aneurysm repair Z98.890 7 surgeries related to this, also had a wound vac H/O heart artery stent Z95.5 H/O hernia repair Z98.890, Z87.19 Hx of cholecystectomy Z90.49 Left shoulder surgery 1998? 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 Psychiatric History: No pertinent psych hx Lives: Shelter Smoking Status: Never smoker Tobacco Use: Non-smoker Alcohol: None Drugs: None - *Family History Paternal Family History: Family History (Last Reviewed 05/05/18 @ 17:35 by RICA Rosenberg) Sister Factor 5 Leiden mutation, heterozygous Aneurysm Sister Aneurysm History Items: - - No marked maternal or paternal family history reported including HD, DM, CA. Maternal Family History: Family History (Last Reviewed 05/05/18 @ 17:35 by RICA Rosenberg) Sister Factor 5 Leiden mutation, heterozygous Aneurysm Sister Aneurysm History Items: - - No marked maternal or paternal family history reported including HD, DM, CA. Review of Systems Constitutional: Denies: Chills, Fever, Weight Change HEENT: Denies: Head Aches, Sinus Congestion, Sinus Drainage Cardiovascular: Denies: Chest Pain, Palpitations Respiratory: Denies: Cough, Shortness of breath at rest, Sputum production Gastrointestinal: Denies: Abdominal Pain, Nausea, Vomiting Genitourinary: Denies: Dysuria Musculoskeletal: Denies: Joint Pain, Joint Tenderness Skin: Denies: Rash, Wounds Neurological: Denies: Numbness, Tingling, Focal weakness Psychiatric: Denies: Anxiety, Depression, Homicidal Ideations, Suicidal Ideations Hematologic/ Lymphatic: Denies: Easy Bruising, Easy Bleeding VTE Information - Inpt Only VTE Present on Admission: No VTE Mechan Device Prophylaxis: Knee High GENARO Hose VTE Pharm Prophylaxis ordered?: Yes - Physical Exam General: Alert, Oriented x3, Cooperative HEENT: Atraumatic, PERRLA, EOMI, Normocephalic Neck: Supple, No JVD, Negative Carotid Bruits, - - Tracheostomy. Lungs: Clear to auscultation, Normal air movement Cardiovascular: Regular rate, No murmurs Abdomen: Bowel Sounds Present, Soft, Non Tender, - - PEG tube. Extremities: No edema, Capillary Refill Less than 3 Seconds Skin: No rashes, No breakdown Musculoskeletal: No Tenderness to Palpation of Joints or Extremities Neurological: Cranial nerves II-XII grossly intact Psych/Mental Status: Normal Affect, Appropriate Body Mass Index (BMI) 21.8 Finger Stick Blood Glucose 104 Assessment/Plan All Active Problems (Last Reviewed 05/05/18 @ 17:35 by RICA Rosenberg) TIA (transient ischemic attack) (Acute) Pneumonia (Acute) Pulmonary nodule, right (Acute) Stroke-like symptoms (Acute) 78 year old male with below past medical history significant for recent emergent ruptured AAA repair, hospitalized for stroke symptoms, diagnosed with TIA superimposed on encephalopathy, admitted to TCU with debility, here for rehabilitation, strengthening, prior to disposition determination. * Debility - PT/OT. * Pain - Tylenol 650MG Q4H PRN mild pain. * Bowel - Colace 100MG BID. * Pneumonia vaccination - Administer Prevnar 13 and/or Pneumovax 23 as necessary. * DVT prophylaxis - Heparin 5000 units SC BID. * Shortness of breath - Duoneb 3ML TID, Albuterol 2.5MG Q2H PRN. * TIA - Aspirin 81MG daily. * Hyperlipidemia - Atorvastatin 40MG QHS. * Iron deficiency anemia - Ferrous sulfate 300MG BID. * Thrush - Fluconazole 100MG daily thru 05/13/2018. * GERD - Lansoprazole 30MG daily. * Insomnia - Melatonin 3MG QHS. * Skin irritation - Calmoseptine BID buttocks. * Nutrition - TwoCal 40ML/hour, Puree nectar thick diet. * Dry Eyes - Artificial Tears 1GTT Q4H PRN, Systane 1GTT BID. * RUL pneumonia - Resident developed fever 05/07/2018, sent to [facility] ED, diagnosed with RUL pneumonia, Levaquin 750MG IV given, then 6 days PO. * Right lung nodule - 11mm, order PET scan to evaluate for malignancy. 05/08/18 0835 <Electronically signed by Jh Gustafson MD> Date Jh Gustafson MD Cosigner Signature: Date (if applicable) CC: Jack Olmedo MD; Jh Gustafson MD Signed EMERGENCY DEPARTMENT Observed: 05/07/2018 Status: F Source: [place] SUMMARY 11:55 PM [facility] REPOSITORY [facility] Medical Records Department [address] [place] [address] Emergency Department Summary 05/07/18 2138 MR#: [id number] Acct: [id number] Name: NAVEEN AKINS Rep #: [id number] : 1940 78 From: Mark Glass PCP: Honorio LOREDO,Jack Status: REG ER - ER Visit Summary Date of Service: 05/07/18 Chief Complaint: Abnormal chest x-ray History of Present Illness: The patient is a 78 M sent here from TCU for an abnormal chest x-ray obtained today. Family present, reports patient complicated AAA rupture this past January leading to repair [facility]. Complication from wound. Patient has trach and PEG, tracheostomy tube was removed April 16. Increasing cough since yesterday. Reported fever of 100.7 axillary. Was empirically started on Levaquin 250 mg today. 3 days ago states was admitted for TIA with left facial droop and left leg weakness which has resolved. Denies any urinary symptoms. Patient been constipated for 3 days had a bowel movement during this recent hospitalization. Unclear passing gas. No nausea or vomiting. Review records, labs are stable, chest x-ray reported right upper lobe density cannot rule out nodule. KUB had constipation however reported of concern for obstruction may need CT. Physical Examination: General: Alert and oriented 3, no acute distress HEENT: Normocephalic, atraumatic. Moist mucosa membranes Neck: supple, nontender. Tracheostomy auscultation, dry, intact with dressing. Cardiovascular: Regular rate and rhythm, no murmurs Respiratory: Normal breath sounds, symmetric, no distress Abdomen: Soft, nontender, nondistended. Healing abdominal incisions, PEG tube clean, dry, intact. Extremities: Nontender, no edema, pulses intact 4 Neuro: no focal neurological deficits. Test Results: CT chest IV contrast: Right upper lobe infiltrate, 11 mm right upper lobe nodule, right lower lobe pleural effusion. CT abdomen pelvis IV contrast: No acute process Emergency Department Course and Treatment: Patient brought in for abnormal chest x-ray. Vitals stable pulse ox stable. Reviewed noted concern for infiltrate rule out nodule. They reported concerns for bowel obstruction by nursing care upstairs with a KUB. KUB noted constipation and reported if concern for CAT scan. However family wanted further rule out. CAT scan chest abdomen pelvis obtained, no intra-abdominal process that were acute. Chest candidate report confirmed right upper pneumonia in addition 11 mm nodule. He is not a smoker. His vitals remained stable. He was treated with Levaquin 750 IV in the ED. 6 more days. They will stop 250 mg of Levaquin. Information relayed back to TCU by nursing. Treatment Plan: [] Disposition: Discharge Impression: 1. Right upper lobe pneumonia 2. 11 mm right upper lobe nodule This note was generated with Platypi dictation software. It may contain incorrect words, spelling, and punctuation that were not noted in review of the chart prior to signing ED Disposition - Plan for ED Patient: Disposition: Home or Assisted Living Chief Complaint: Other, Pain/Inj Diagnosis: Pneumonia, Pulmonary nodule, right Instructions: ED Pneumonia Adult, ED Nodule Solitary Pulmonary Prescriptions: Levofloxacin [Levaquin] 750 mg PO DAILY #6 tablet Referrals: Jack Olmedo MD [Primary Care Provider] - 3-5 Days Additional Instructions: Stop Levaquin 250 mg. Levaquin 750 mg started in the ED. Will need 6 more days. Right upper lobe infiltrate. 11 mm right upper lobe nodule. Will need investigation further workup as an outpatient. What to do if you have Problems For any increased pain, shortness of breath, bleeding, nausea or vomiting, chest pain, or any unexpected problems, contact your Primary Care Provider. Call [facility] ([phone]) or report to the closest Emergency Room. Call 911 if necessary. 05/07/18 9693 <Electronically signed by Mark Glass> Date Mark Glass Cosigner Signature (If Indicated): Date CC: Jack Olmedo MD ABDOMEN/PELVIS W IV CONT Observed: 05/07/2018 Status: F Source: [place] ONLY 9:03 PM [facility] REPOSITORY [facility] Imaging Services [facility] [place] [address] Abdomen/Pelvis W IV Cont ONLY MR#: [id number] Acct: [id number] Name: NAVEEN AKINS Rep #: [id number] : 1940 M 78 From: Michael Moss DO PCP: Jack Olmedo MD Status: DEP ER Study: Abdomen/Pelvis W IV Cont ONLY Date of Exam: 05/07/18 Exam# [id number] Ordering Dr: Mark Michaels DO STUDY: CT ABDOMEN AND PELVIS WITHOUT CONTRAST REASON FOR EXAM: Male, 78 years old. Fever. Constipation. RADIATION DOSAGE (If Supplied By Facility): CTDIvol = ( 21.40 ) mGy, DLP = ( 1062.34 ) mGycm TECHNIQUE: Transaxial images were obtained from the dome of the diaphragm to the symphysis pubis without oral contrast, and without intravenous contrast. Sagittal and coronal images were reconstructed. Individualized dose optimization techniques were used for this CT. COMPARISON: CT of the abdomen and pelvis, January 11, 2018. FINDINGS: There are small bilateral pleural effusions, right greater than left subsegmental atelectasis. There is a metallic foreign body in the posterior aspect of the medial right lung. Heart appears mildly enlarged and slightly displaced into the left hemithorax. The liver is normal in size contour and density. There is mild intrahepatic and extrahepatic biliary ductal dilatation with nonvisualization of the gallbladder suggesting prior cholecystectomy. Normal spleen. Normal pancreas. Normal bilateral adrenal glands. Normal right kidney. Normal left kidney. There is a gastrostomy tube in the body of the stomach. Normal small intestine. There is sigmoid diverticulosis without acute inflammatory change. The appendix is visualized and appears normal. There is minimal atherosclerotic changes of the abdominal aorta. There are multiple surgical clips about the upper aorta at the takeoff of the left renal artery. There is a fat density mass surrounding the lower abdominal aorta and extending outward along the course of the left common iliac artery into the retroperitoneal fascia along the iliopsoas muscle. This is thought to be secondary to interval repair of the large abdominal aneurysm seen on the previous CT. Normal IVC. Normal urinary bladder. Normal prostate and seminal vesicles. There is no pelvic lymphadenopathy or mass. No free air or free fluid is seen within the peritoneal cavity. There are surgical changes of the abdominal wall which were not present on the prior study. There is a right inguinal hernia containing nonobstructed loop of small bowel.. There are degenerative changes of the lumbar spine and bilateral hips which appear unchanged from the prior study. CT/Abdomen/Pelvis W IV Cont ONLY IMPRESSION: 1. Interval repair of an infrarenal abdominal aortic aneurysm noted on the prior CT. 2. Bilateral pleural effusions not present on the previous examination. 3. Status post cholecystectomy. 4. Diverticulosis. 5. Right inguinal hernia containing nonobstructed small bowel. 6. No other major interval change. Electronically Signed: Michael Moss DO at 21:51 EST Tel [phone], Service support , CC: Jack Olmedo MD; Mark Michaels Senior Major Gifts Officer: Signed URINALYSIS, COMPLETE Collected: 05/07/2018 Status: F Source: [place] 8:51 PM [facility] REPOSITORY Order Comment: Order Date: 05/07/18 How was Urine Obtained? CATHETER SPECIMEN TYPE CODE TESTS RESULT OUT OF RANGE REFERENCE UNITS LAB L400.3000 Yellow COLOR Normal Yellow LAB L400.3050 Clear Normal CLARITY Clear LAB L400.3200 Normal mg/dl Normal GLUCOSE, UR NEGATIVE LAB L400.3300 Negative mg/dL Normal BILIRUBIN URINE Negative LAB L400.3400 Negative mg/dl Normal KETONE UR Negative LAB L400.3465 1.002-1.030 Normal SP.GR. DIPSTX 1.020 LAB L400.3550 5.0 - 8.0 pH UR Normal 5.0 LAB L400.3600 Negative mg/dl High PROT 15 DIPSTX LAB L400.3700 Normal mg/dl Normal UROBILI Normal LAB L400.3750 Negative Normal NITRITE UR Negative LAB L400.3780 Negative /ul High 10 OCCULT BLOOD-UR LAB L400.3800 Negative /ul LEUK Normal ESTERASE Negative LAB L400.4050 0-5 /hpf WBC Normal 0-5 SEEN LAB L400.4100 0-5 /hpf Normal RBC-UA 0-5 SEEN LAB L400.4150 0-5 /hpf SQUAM Normal EPI 0-5 SEEN LAB L400.4300 None Seen /hpf 0 Normal BACTERIA SEEN LAB L400.4350 <or=2+ /hpf 0 Normal MUCUS, URINE SEEN Performed By: #### L400.0001 #### [facility] [address] [place], [address] CHEST WITH CONTRAST Observed: 05/07/2018 Status: F Source: [place] 8:36 PM [facility] REPOSITORY [facility] Imaging Services [address] [place] [address] Chest WITH Contrast MR#: [id number] Acct: [id number] Name: NAVEEN AKINS Rep #: [id number] : 1940 M 78 From: Keely Castellano MD PCP: Jack Olmedo MD Status: REG ER Study: Chest WITH Contrast Date of Exam: 05/07/18 Exam# [id number] Ordering Dr: Mark Michaels DO STUDY: CT CHEST WITH CONTRAST REASON FOR EXAM: Male, 78 years old. Fever RADIATION DOSAGE (If Supplied By Facility): CTDIvol = ( ) mGy, DLP = ( 623.86 ) mGycm TECHNIQUE: Transaxial imaging was performed following intravenous administration of 100 ml of Isovue 300 contrast material. Sagittal and coronal reconstructions were performed. Individualized dose optimization techniques were used for this CT. COMPARISON: Chest radiograph from the same day FINDINGS: There is minimal biapical scarring. There are patchy airspace opacities in the posterior segment of the right upper lobe. There is an 11 mm opacity in the anterior segment of the right upper lobe on series 6 image 54. There is a small radiopaque foreign body in the periphery of the right lower lobe near the diaphragm. There are increased lung markings in the posterior segments of both lower lobes. There is moderate fluid in the right pleural margin. The heart is normal in size. There are calcifications of the coronary arteries. There are small lymph nodes scattered in the mediastinum. There are small lymph nodes in the right hilum. The pulmonary arteries are unremarkable. There are minimal vascular calcifications in the thoracic aorta. There are minimal degenerative changes in the visualized spine. There is an old fracture of the right scapula. There are no significant abnormalities in the visualized upper abdomen. CT/Chest WITH Contrast IMPRESSION: There are patchy airspace opacities in the posterior segment of the right upper lobe, probable focal pneumonia. There is a moderate right pleural effusion. There is an 11 mm opacity in the anterior segment of the right upper lobe. A PET/CT scan should be considered after treatment to evaluate for metabolic activity in this nodule. There is moderate dependent atelectasis in both lower lobes. There are no enlarged lymph nodes. There are small reactive lymph nodes in the mediastinum and right hilum. Electronically Signed: Keely Castellano MD at 23:39 EST Tel Direct: [phone], Service support , CC: Jack Olmedo MD; Mark Michaels Senior Major Gifts Officer: Signed Observed: 05/07/2018 Status: F Source: [place] RESPIRATORY PANEL 4:45 PM [facility] REPOSITORY Order Date: 05/07/18 RP PANEL ADENOVIRUS Not Detected HUMAN METAPHNEUMO Not Detected INFLUENZA A Not Detected INFLUENZA A (SUBTYPE H1) Not Detected INFLUENZA A (SUBTYPE H3) Not Detected INFLUENZA B Not Detected PARAINFLUENZA 1 Not Detected PARAINFLUENZA 2 Not Detected PARAINFLUENZA 3 Not Detected PARAINFLUENZA 4 Not Detected RHINOVIRUS Not Detected RSV A Not Detected RSV B Not Detected NAAT METHOD Testing was performed using nucleic acid amplification Performed By: #### M100.638 #### [facility] [address] [facility] [facility] [place], [address] ABDOMEN SINGLE VIEW Observed: 05/07/2018 Status: F Source: [place] (PORTABLE) 3:47 PM [facility] REPOSITORY [facility] Imaging Services [address] [place] [address] Abdomen Single View (Portable) MR#: [id number] Acct: [id number] Name: NAVEEN AKINS Rep #: [id number] : 1940 M 78 From: El Malik MD PCP: Jack Olmedo MD Status: ADM IN Study: Abdomen Single View (Portable) Date of Exam: 05/07/18 Exam# [id number] Ordering Dr: Jh Gustafson MD STUDY: X-RAY - ABDOMEN/PELVIS REASON FOR EXAM: Male, 78 years old. Constipation TECHNIQUE: 2 views of the abdomen were obtained COMPARISON: None. FINDINGS: Calcific density under the right hemidiaphragm seen. Gastrostomy tube noted. Fecal loading of colonic loops. Surgical clips in the left lower quadrant. Bowel gas pattern is nonobstructive and nonspecific. Degenerative changes of the lumbar spine with mild levoconvex curvature IMPRESSION: Nonspecific and nonobstructive bowel gas pattern. Mild fecal loading of colonic loops. Please consider CT examination of this clinical concern for small bowel obstruction Electronically Signed: El Malik, at 17:52 EST Tel , Service support , RAD/Abdomen Single View (Portable) CC: Jack Olmedo MD; Jh Gustafson MD Senior Major Gifts Officer: Signed CHEST 1 VIEW Observed: 05/07/2018 Status: F Source: [place] (PORTABLE) 3:47 PM [facility] REPOSITORY [facility] Imaging Services [address] [place] [address] Chest 1 View (Portable) MR#: [id number] Acct: [id number] Name: NAVEEN AKINS Rep #: [id number] : 1940 78 From: El Malik MD PCP: Jack Olmedo MD Status: ADM IN Study: Chest 1 View (Portable) Date of Exam: 05/07/18 Exam# [id number] Ordering Dr: Jh Gustafson MD STUDY: X-RAY CHEST REASON FOR EXAM: Male, 78 years old. . Shortness of breath TECHNIQUE: Single view of the chest was obtained. COMPARISON: May 04, 2018 chest radiograph FINDINGS: Right upper lobe focal airspace disease. Underlying mass is not excluded. Please consider chest CT. Tortuosity of the aorta. Small metallic density in the right cardiophrenic region noted. Which appears similar to previous examination. IMPRESSION: Airspace disease in the right upper lobe with nodular density. Underlying mass is not excluded. Please consider chest CT. Electronically Signed: El Malik, at 17:53 EST Tel , Service support , RAD/Chest 1 View (Portable) CC: Jack Olmedo MD; Jh Gustafson MD Senior Major Gifts Officer: Signed DISCHARGE SUMMARY Observed: 05/07/2018 Status: F Source: [place] 12:23 PM [facility] REPOSITORY [facility] Medical Records Department [address] [place] [address] Discharge Summary 05/06/18 1445 MR#: [id number] Acct: [id number] Name: NAVEEN AKINS Rep #: [id number] : 1940 78 From: Tarik TAPIA PCP: Jack Olmedo MD Status: DIS IN Y Location: [place] [id number] <Tarik Darby - Last Filed: 05/06/18 14:49> Discharge Date and Diagnosis Date of Admission: 05/05/18 Date of Discharge: 05/06/18 - Primary Discharge Diagnosis TIA CKD Dysphagia Hx Recent AAA disection with succesful repair Hx recent Cardiac arrest HTN Debility GERD Severe protein calorie malnutrition Thrush - Secondary Discharge Diagnosis Chronic Problems (Last Reviewed 05/05/18 @ 17:35 by Abimbola Morris, GILBERTO-C) Malnutrition (Chronic) Hyperlipidemia (Chronic) Iron deficiency anemia (Chronic) GERD (gastroesophageal reflux disease) (Chronic) Dysphagia (Chronic) Anemia (Chronic) Vasovagal syndrome (Chronic) Coronary artery disease (Chronic) Coronary artery disease (Chronic) Hypertension (Chronic) Hospital Course and Treatment Imaging Results: CT brain w/o contrast IMPRESSION: No evidence for acute intracranial hemorrhage, mass effect or acute large territory infarcts. Mild chronic small vessel disease. Chronic left basal ganglia Mucosal thickening of the ethmoid air cells and the maxillary sinuses as well as the right sphenoid sinus suggestive of sinusitis. Partial opacification of the mastoid air cells can be seen in the setting of mastoid effusion or mastoiditis RAD/Chest 1 View IMPRESSION: Right medial lung base atelectasis versus infiltrate CT/CTA Head W/WO Contrast IMPRESSION: 1. Patent [place] of [place]. No intracranial aneurysm, vascular malformation, or significant stenosis. 2. Bilateral patency of the vertebral arteries with the left vertebral artery dominant. 3. Bilateral mastoiditis and paranasal sinusitis. Details above. Individualized dose optimization techniques were used for this CT. CT/CTA Neck W/WO Contrast IMPRESSION: 1. No carotid dissection or significant carotid stenosis. 2. Bilateral patency of the vertebral arteries with the left vertebral artery dominant. 3. Paranasal sinusitis and bilateral mastoiditis. Details above Individualized dose optimization techniques were used for this CT. Echo: Interpretation Summary The study was technically difficult. Left ventricular systolic function is normal. The estimated ejection fraction is 60 %. Trivial mitral valve insufficiency. Trivial tricuspid valve insufficiency. Trivial pulmonic valve insufficiency. Unable to estimate RV systolic pressure/pulmonary artery pressure due to technically difficult study. No evidence for diastolic dysfunction. MRI/Brain W/WO Contrast IMPRESSION: Moderate atrophy and mild periventricular white matter ischemic changes. Old right lacunar infarct. No acute ischemic changes.. Consults: [place] - neuro Operations: None Procedures: 2-D Echocardiogram Summary of Care Provided: Hospital Course: The patient is a 78 year old M with pmhx of ruptured AAA, cardiac arrest at [facility], subsequently has been undergoing rehab in the TCU, who developed dysarthria, weakness, and confusion. He was sent to the ER with concern for stroke. CT brain and CTA head and neck were obtained with no acute stroke. He was admitted to the PCU and placed on tele. Neuro was consulted. He was placed on aspirin and statin. MRI of the brain was obtained and showed an old stroke, no acute stroke. Echo was unremarkable. His symptoms resolved while on the PCU and returned to baseline. Neuro felt this was a TIA and recommended dc on asa/statin, with neuro follow up. Also of note, while here, he had a re-evaluation by speech therapy and was made NPO. Dietary advanced his tube feeds to 40cc continuous as he has severe malnutrition. Speech OK'd the patient to have oral pills. He also has had thrush that has not improved with nystatin. He was placed on fluconazole 200, to be followed by 7-14 days of 100 qd. He was dc'd back to TCU in stable condition. He will need follow up with his PCP in 1-2 weeks and with neuro in 2-3 weeks. This patient was seen by Tarik Darby PA-C under the supervision of Dr. Arizmendi. [] - Physical Exam General: Alert, Oriented x3, Cooperative HEENT: Atraumatic, PERRLA, EOMI, Normocephalic Neck: Supple, No JVD, Negative Carotid Bruits Lungs: Clear to auscultation, Normal air movement Cardiovascular: Regular rate, No murmurs Abdomen: Bowel Sounds Present, Soft, Non Tender Extremities: No edema, Capillary Refill Less than 3 Seconds Skin: No rashes, No breakdown Musculoskeletal: No Tenderness to Palpation of Joints or Extremities Neurological: Cranial nerves II-XII grossly intact Psych/Mental Status: Normal Affect, Appropriate, Alert and oriented to time, place, person, mood and affect Vital Signs Temp Pulse Resp BP Pulse Ox 98.2 F 86 18 131/76 H 94 05/06/18 10:37 05/06/18 11:03 05/06/18 10:37 05/06/18 10:37 05/06/18 11:48 Oxygen Delivery Method Room Air Weight: 152 lb 1.903 oz Body Mass Index (BMI) 21.8 Finger Stick Blood Glucose 104 Intake and Output for Last 24 Hours Intake Total 1810 / 1810 1776 / 1776 Output Total 100 / 100 Balance 1810 / 1810 1676 / 1676 Laboratory Tests Past 24 Hrs Hgb 9.4 L Hct 28.7 L Discharge Diet: No Restrictions Discharge Activity: Return to Normal Activity Home Medications: Medications to take at Discharge Docusate Sodium [COLACE LIQUID] 100 mg GT BID 03/28/18 Ferrous Sulfate Syrup 300 mg GT BID 03/28/18 Heparin Injection 5,000 units SUBCUT BID 03/28/18 Ipratropium/Albuterol Sulfate [Duoneb] 3 ml INHALATION TID 03/28/18 Lansoprazole [Prevacid] 30 mg GT DAILY 03/28/18 Propylene Glycol/Peg 400/Pf [Systane 0.3-0.4% Eye Drop] 1 ea OP BID 03/28/18 Albuterol Aerosols [Ventolin Aerosols] 2.5 mg INHALATION Q2H PRN PRN vial.neb. 04/04/18 0.9% Normal Saline 60 ml IV Q16H 05/05/18 Acetaminophen Liquid [Tylenol Liquid] 650 mg GT Q4H PRN PRN 05/05/18 Melatonin 3 mg PO QHS 05/05/18 Menthol/Lanolin/Calamine/Znox [Calmoseptine Ointment] 1 applic TOPICAL BID 05/05/18 Nut.sup,Spec,Lac-Free,Iron/Fos [Twocal Hn Liquid] 40 ml GT DAILY 05/05/18 Polyvinyl Alcohol [Artificial Tears] 1 drop OP Q4H PRN 05/05/18 Aspirin [Aspirin, Baby] 81 mg GT DAILY@0800 05/06/18 Atorvastatin Calcium [Lipitor] 40 mg GT QHS 05/06/18 Fluconazole 100 mg PO DAILY 05/06/18 Primary Care Physician: Jack Olmedo MD [Primary Care Provider] - Please follow up with your Primary Care Physician in: 1-2 weeks Please Follow Up With: Abdullahi Styles MD When: 2-3 weeks Disposition: Home Minutes spent on discharge:: 40 Patient Condition:: Stable Medical Necessity - Tobacco Use Smoking Status: Never smoker Tobacco Use: Non-smoker Meaningful Use Info Meaningful Use Diagnoses (Choose all that apply): None applicable <UgoCorey E - Last Filed: 05/07/18 12:22> Discharge Date and Diagnosis - Secondary Discharge Diagnosis Chronic Problems (Last Reviewed 05/05/18 @ 17:35 by Abimbola Morris NP-C) Malnutrition (Chronic) Anoxic encephalopathy (Chronic) Abdominal aortic aneurysm, ruptured (Chronic) 01/11/2018 Hyperlipidemia (Chronic) Iron deficiency anemia (Chronic) GERD (gastroesophageal reflux disease) (Chronic) Dysphagia (Chronic) Anemia (Chronic) Vasovagal syndrome (Chronic) Coronary artery disease (Chronic) Coronary artery disease (Chronic) Hypertension (Chronic) Hospital Course and Treatment Summary of Care Provided: Hospitalist note: Discharge summary above reviewed as well as physical examination and I agree with the above discharge plan. He was transferred to the TCU thousand 2 ED because of strokelike symptoms. He had left facial droop as well as left-sided body weakness. He had stroke workup that was unremarkable for acute stroke. Her symptoms attributed to transient ischemic attacks. CT scan brain showed no acute findings. CTA of the head and neck showed no hemodynamically significant vascular disease or stenosis. MRI brain also obtained and showed old stroke, no evidence of acute stroke or hemorrhage. Echocardiogram was unremarkable. Patient symptoms improved. He was treated with aspirin and statins. Patient discharged back to TCU with a stable medical condition, discharged on aspirin and statins, started on continuous tube feeds because of dysphagia, kept on n.p.o. because of high risk of aspiration, plan for speech therapy and evaluation at TCU, follow-up with PCP in 1-2 weeks, follow- up with neurology in 3 weeks. - Physical Exam General: Alert, Oriented x3, Cooperative, No apparent distress. HEENT: Atraumatic, PERRLA, EOMI. Neck: Supple, No JVD, Negative Carotid Bruits, Trachea Midline, Thyroid Normal. Lungs: Diminished breath sounds bilateral, otherwise clear no rhonchi, No wheeze, No rales. Cardiovascular: Regular rate, Regular Rhythm, Normal S1, Normal S2, PMI Normal. Abdomen: Bowel Sounds Present, Soft, Non Tender, Non-Distended, No Hepato-splenomegaly, PEG tube in place. Extremities: No clubbing, No cyanosis, No edema Skin: No rashes, No breakdown Neurological: Neuro grossly intact Vital Signs are stable. This note was generated with Platypi dictation software. It may contain incorrect words, spelling, and punctuation that were not noted in checking the note before signing. - Physical Exam Vital Signs Temp Pulse Resp BP Pulse Ox 98.2 F 86 18 131/76 H 94 05/06/18 10:37 05/06/18 11:03 05/06/18 10:37 05/06/18 10:37 05/06/18 11:48 Oxygen Delivery Method Room Air Weight: 152 lb 1.903 oz Body Mass Index (BMI) 21.8 Finger Stick Blood Glucose 104 Intake and Output for Last 24 Hours Intake Total 1810 / 1810 1776 / 1776 Output Total 100 / 100 Balance 1810 / 1810 1676 / 1676 Laboratory Tests Past 24 Hrs Hgb 9.4 L Hct 28.7 L [facility] Minutes spent on discharge:: 26 Patient Condition:: Stable Meaningful Use Info Meaningful Use Diagnoses (Choose all that apply): None applicable Code Visit Inpatient E AND M: 55167 Disch Hosp 05/06/18 1502 <Electronically signed by Tarik TAPIA> Date Tarik TAPIA 05/07/18 1223<Electronically signed by Corey Arizmendi MD> Cosigner Signature (if applicable): Date Corey Arizmendi MD CC: WILLIE Darby; Jack Olmedo MD; Corey Arizmendi; Abdullahi Styles MD Signed CBC W/DIFF, AUTOMATED Collected: 05/07/2018 Status: F Source: [place] 6:51 AM [facility] REPOSITORY TYPE CODE TESTS RESULT OUT OF RANGE REFERENCE UNITS LAB L100.1000 4.4-11.0 K/mm3 Normal WBC 6.2 LAB L100.1200 4.6-6.2 M/mm3 Low RBC 3.20 LAB L100.1300 13.0-16.5 g/dl Low HGB 9.4 LAB L100.1400 40-54 % Low HCT 28.7 LAB L100.1500 80-94 fL Normal MCV 89.7 LAB L100.1600 27.0-32.0 pg Normal MCH 29.4 LAB L100.1700 32-36 g/gl Normal MCHC 32.8 LAB L100.1810 11.6-14.6 % High RDW CV 15.2 LAB L100.1820 35.1-43.9 fl High RDW SD 49.6 LAB L100.1900 150-450 K/mm3 Normal PLT 205 LAB L100.2000 6.2-12.0 fl Normal MPV 8.7 LAB L100.2100 47-70 % Normal NEUT% 58.4 LAB L100.2200 19-41 % Normal LY% 25.2 LAB L100.2300 0-10 % Normal MONO% 7.3 LAB L100.2400 0-5 % High EO% 8.9 LAB L100.2500 0-1 % Normal BASO% 0.2 LAB L100.2550 0.0-0.9 % Normal IM GRAN % 0.000 Result Comment: IG% - Immature Granulocytes (promyelocytes, myelocytes and metamyelocytes) > 1% indicates that a LEFT SHIFT is Present. LAB L100.2620 2.0-7.7 X10 3/uL Normal Absolute Neut 3.6 LAB L100.2720 0.83-4.51 X10 3/ul Normal Absolute Lymph 1.55 Performed By: #### L100.0100 #### [facility] [address] [place], [address] BASIC METABOLIC Collected: 05/07/2018 Status: F Source: [place] PROFILE (BMP) 6:51 AM [facility] REPOSITORY TYPE CODE TESTS RESULT OUT OF RANGE REFERENCE UNITS LAB L501.0100 74-106 mg/dL Normal GLU 97 Result Comment: Please note revised GLUCOSE reference range effective 2017. LAB L501.1000 7-18 mg/dL High BUN 23 LAB L501.1100 0.70-1.30 mg/dL Normal CREAT,SERUM 1.17 Result Comment: The validity of the calculated GFR AND GFRAA in patients over 70 years has not been determined. Clinical correlation is essential. LAB L501.1110 >60 mL/min Normal EST GFR 64 Result Comment: Non- GFR Calc LAB L501.1115 >60 mL/min Normal EST GFR - AA 78 Result Comment: GFR Calc LAB L501.1255 ml/min Normal Estimated CRCL 50.78 LAB L501.1300 10-20 RATIO Normal BUN/CRE 19.7 LAB L501.2200 8.5-10 mg/dL Normal .1 CA 9.8 LAB L501.5300 136-14 mmol/L Normal 5 NA 140 LAB L501.5600 3.5-5. mmol/L Normal 1 K 4.0 LAB L501.5900 98-107 mmol/L Normal CL 107 LAB L501.6100 21.0-3 mmol/L Normal 2.0 CO2 25.0 LAB L501.6200 5-15 Normal GAP 8 Performed By: #### L500.2500 #### [facility] [address] [place], [address] TRANSFER TO [facility] Observed: 05/06/2018 Status: F Source: [place] CARE 3:35 PM [facility] REPOSITORY [facility] Medical Records Department [address] [place] [address] Transfer to Extended Care MR#: [id number] Acct: [id number] Name: NAVEEN AKINS Rep #: [id number] : 1940 78 From: Tarik TAPIA PCP: Jack Olmedo MD Status: DIS IN NAVEEN AKINS (Patient) (Health Ins. Claim No.) (Day of Discharge to Facility) Certification of patient admission REQUIRED AT TIME OF ADMISSION. I CERTIFY THAT POST-HOSPITAL ECF SERVICES ARE REQUIRED TO BE GIVEN ON AN IN-PATIENT BASIS BECAUSE OF THE ABOVE NAMED PATIENT'S NEED FOR SKILLED NURSING CARE ON A CONTINUING BASIS FOR THE CONDITION(S) FOR WHICH HE/SHE WAS RECEIVING IN-PATIENT HOSPITAL SERVICES PRIOR TO HIS/HER TRANSFER TO THE ECF. 05/06/18 1220 <Electronically signed by Tarik TAPIA> Date Tarik TAPIA - Diet 05/05/18 15:14 Diet: Nothing Per Oral Dietary Modifications:: Mechanical Soft Diet Artemus Thick Liquids Is pt able to select menu?: No OK for Pills. Per Shank Piece Tacker: Rec continuous feedlings of TwoCal HN at goal rate of 40cc/hour w/ 50cc flush q 2 hours x 24 hours/day to provide 1920 calories, 80 g protein / 1272 cc free water/day. - Routine Orders/Code Status Suppository Type: Dulcolax 10mg Suppository Frequency: Daily PRN Routine Lab Work: CBC - 5 days, BMP - 5 days Code Status: Full Code - Wound(s) Trach removal Wound Type: Surgical Incision - Therapies Physical Therapy: Eval and Treat Occupational Therapy: Eval and Treat Speech Therapy: Eval and Treat - Problem/Diagnosis (1) TIA (transient ischemic attack) Status: Acute Current Visit: Yes (2) Coronary artery disease Status: Chronic Current Visit: No (3) Dysphagia Status: Chronic Current Visit: No (4) GERD (gastroesophageal reflux disease) Status: Chronic Current Visit: No (5) Hyperlipidemia Status: Chronic Current Visit: No (6) Hypertension Status: Chronic Current Visit: No (7) Iron deficiency anemia Status: Chronic Current Visit: No (8) Abdominal aortic aneurysm, ruptured Status: Inactive Comment: 01/11/2018 Current Visit: No (9) Malnutrition Status: Chronic Current Visit: Yes - Allergies/Procedures Done in Hospital Allergies/Adverse Reactions: Allergies famotidine [From Pepcid] Adverse Reaction (Verified 05/03/18 11:22) Low blood pressure metoclopramide [From Reglan] Adverse Reaction (Verified 05/03/18 11:22) Other Procedures: 2-D Echocardiogram - Type of Care/Length of Stay Estimated LOS: Convalescent Care Less Than 30 days Type of Care Needed: Skilled Rehab Potential: Good Prognosis: Good - Additional Orders/Day of Discharge Day of Discharge: 05/06/18 - Dietary and Speech Recommendations Dietitian Recommendations/Changes: Rec continuous feedlings of TwoCal HN at goal rate of 40cc/hour w/ 50cc flush q 2 hours x 24 hours/day to provide 1920 calories, 80 g protein / 1272 cc free water/day. [ End ] - Follow Up Care Primary Care Physician: Jack Olmedo MD [Primary Care Provider] - Please follow up with your Primary Care Physician in: 1-2 weeks Please Follow Up With: Abdullahi Styles MD When: 2-3 weeks 05/06/18 1220 <Electronically signed by Tarik TAPIA> Date Tarik TAPIA CC: Kelton Mcclendon MD; Jack Olmedo MD Signed HH, HEMOGLOBIN AND Collected: 05/06/2018 Status: F Source: [place] HEMATOCRIT 6:28 AM [facility] REPOSITORY TYPE CODE TESTS RESULT OUT OF RANGE REFERENCE UNITS LAB L100.1300 13.0-16.5 g/dl Low HGB 9.4 LAB L100.1400 40-54 % Low HCT 28.7 Performed By: #### L100.0600 #### [facility] [place], [address] PULMONARY VISIT REPORT Observed: 05/05/2018 Status: F Source: [place] 5:54 PM [facility] REPOSITORY [facility] [address] [place] [address] OFFICE VISIT Date of Service: 05/03/18 MR#: [id number] Acct: [id number] Name: NAVEEN AKINS Rep #: [id number] : 1940 Provider: Abimbola Morris Age/Sex: 78/M Location: [facility] Status: Signed Assessment AND Plan Problems 1. Tracheostomy present Z93.0 Plan Patient has had a lengthy and complicated couple of hospital stays here recently. He did survive a ruptured AAA and repair. Tracheostomy has successfully been removed and is now healing. We will continue to monitor. Follow-up with Dr. Mathews in 3 months. No additional testing at this time. Patient Instructions Plan Detail Follow Up 3 Months ([facility] Chief Complaint: Weakness HPI Comments Details: Patient had his trach removed about 1 week ago. Daughter states that the patient just became aware within the last week the patient has become more aware of what has happened. MORROW. Patient has been in [facility], [facility] and [facility]. AAA ruptured 01/11/18. Not using any aeresols regularly. He was given albuterol once yesterday and 2 days prior at daughters request. This is a 78 year old pleasant M, currently under the care of Jack Olmedo, here to follow up after a recent hospitalization at [facility], from April 01 - April 04, 2018 for healthcare associated pneumonia. The hospital stay was complicated by unresponsiveness. 20 pages of hospital documentation was reviewed, and found to be significant for CT of the brain completed on April 01 that showed chronic involutional changes of the brain, new lateral mastoiditis and interval development of chronic sinusitis, remote injury to the left maxillary sinus suspected but no acute intracranial pathology. Chest x-ray was completed on April 03 showing improving bibasilar subsegmental atelectasis versus pneumonia. Sputum culture did grow Enterobacter. Upon discharge, the patient completed a 7 day course of Levaquin. Intake Vital Signs05/03/18 Height 5 ft 10 in 05/03/18 Blood Pressure 118/69 05/03/18 Blood Pressure Location Rt brachial 05/03/18 Blood Pressure Position Sitting 05/03/18 Respiratory Rate 18 Intake Visit Reasons: Hospital FU Firer Electric Locomotive Required: No Accompanied by: Daughter Is patient in pain?: No Allergies famotidine [From Pepcid] Adverse Reaction (Verified 05/03/18 11:22) Low blood pressure metoclopramide [From Reglan] Adverse Reaction (Verified 05/03/18 11:22) Other Medications Chlorhexidine 15 ml PO BID 03/28/18 [History Confirmed 05/05/18] Docusate Sodium [COLACE LIQUID] 100 mg GT BID 03/28/18 [History Confirmed 05/05/18] Ferrous Sulfate Syrup 300 mg GT BID 03/28/18 [History Confirmed 05/05/18] Heparin Injection 5,000 units SUBCUT BID 03/28/18 [History Confirmed 05/05/18] Ipratropium/Albuterol Sulfate [Duoneb] 3 ml INHALATION TID 03/28/18 [History Confirmed 05/05/18] Lansoprazole [Prevacid] 30 mg GT DAILY 03/28/18 [History Confirmed 05/05/18] Metoprolol Tartrate [Lopressor (beta lyric)] 12.5 mg GT BID 03/28/18 [History Confirmed 05/05/18] Nystatin 100,000 unit PO 4X/DAY 03/28/18 [History Confirmed 05/05/18] Propylene Glycol/Peg 400/Pf [Systane 0.3-0.4% Eye Drop] 1 ea OP BID 03/28/18 [History Confirmed 05/05/18] Albuterol Aerosols [Ventolin Aerosols] 2.5 mg INHALATION Q2H PRN PRN vial.neb. 04/04/18 [Rx Confirmed 05/05/18] 0.9% Normal Saline 60 ml IV Q16H 05/05/18 [History Confirmed 05/05/18] Acetaminophen Liquid [Tylenol Liquid] 650 mg GT Q4H PRN PRN 05/05/18 [History Confirmed 05/05/18] Melatonin 3 mg PO QHS 05/05/18 [History Confirmed 05/05/18] Menthol/Lanolin/Calamine/Znox [Calmoseptine Ointment] 1 applic TOPICAL BID 05/05/18 [History Confirmed 05/05/18] Nut.sup,Spec,Lac-Free,Iron/Fos [Twocal Hn Liquid] 40 ml GT DAILY 05/05/18 [History Confirmed 05/05/18] Polyvinyl Alcohol [Artificial Tears] 1 drp OP Q4H PRN 05/05/18 [History Confirmed 05/05/18] PFSH Medical History Abdominal aortic aneurysm, ruptured (Inactive) Cardiac arrest (Inactive) Hyperlipidemia (Chronic) Iron deficiency anemia (Chronic) GERD (gastroesophageal reflux disease) (Chronic) Dysphagia (Chronic) Anemia (Chronic) Vasovagal syndrome (Chronic) Coronary artery disease (Chronic) Coronary artery disease (Chronic) Hypertension (Chronic) Surgical History H/O abdominal aortic aneurysm repair (Resolved) H/O heart artery stent (Resolved) H/O hernia repair (Resolved) Hx of cholecystectomy (Resolved) Left shoulder surgery (Resolved) S/P percutaneous endoscopic gastrostomy (PEG) tube placement (Resolved) Tracheostomy status (Resolved) Family History Sister Factor 5 Leiden mutation, heterozygous Aneurysm Sister Aneurysm Social History Smoking Status: Never smoker alcohol intake: never substance use type: does not use Review of Systems Const CONSTITUTIONAL: Positive chills and fatigue; negative anorexia, body ache, daytime sleepiness, fever(s), night sweats, oral thrush, stops breathing during sleep, weight loss, sleeping in chair, weight loss, weight gain, frequent colds, seasonal allergies, other, headache(s) or orthopnea EETM Ear Nose Throat Mouth: Positive hearing normal; negative hard of hearing, hoarseness, dry mouth in morning, change in vision, itchy eyes, eye pain, swallowing Difficulty, ear pain, nose bleed, headache(s), mouth pain, nasal congestion, nasal discharge, post nasal drip, sinus pain, sinus pressure, sore throat or other Cardio Cardiovascular: Negative chest pain, chest pain at rest, chest pain with activity, irregular heart rhythm, edema, shortness of breath when lying down, palpitations, murmur or other Resp Respiratory: Positive as per HPI, shortness of breath shortness of breath: Positive with activity and cough cough: Positive productive color: Positive yellow; negative pain with cough, wheezing, chest congestion, chest tightness, pain on inspiration, inhalers, increase use of rescue inhalers, snoring, apnea or other Gastro Gastrointestional: Negative bloody stools, change in appetite, difficulty swallowing, reflux, hematemesis, melena stool, loose stool, constipation or other Genitourinary: Negative blood in urine, nocturia, pain with urination or other Musc Musculoskeletal: Negative body pain, back pain, neck pain or other Skin/Breast Skin/Breast: Negative dry skin, itching, rash, unusual bruising, breast lump or other Neuro Neurological: Negative restless legs, confusion, weakness or other Psych Psychocological: Negative abnormal sleep pattern, anxiety, thoughts of hurting self/others, hopelessness or other Lymph Lymphatic: Negative easy bleeding, easy bruising, swollen lymph nodes or other Exam Const Constitutional: Positive conversant, cooperative, in no acute respiratory distress, well developed, well nourished, good hygiene, frail appearing and thin Head Head: Positive normocephalic and atraumatic; negative cyanosis of lips/distal nose Eyes Eye: Positive clear conjunctiva; negative nystagmus or scleral abnormality Ears Ear: Positive hearing normal and external ears normal; negative hard of hearing Nose Nose: Positive external nose normal and no nasal discharge; negative epistaxis Mouth Mouth: Positive oral mucosae normal, no lesions, good dentition and posterior oropharynx is adequate; negative post nasal drip, malodorous breath or oral thrush present Mallampati Score: I: Mallampati Score Neck Neck: Positive normal visual inspection, full ROM and trachea midline (trach d/c 10 days ago, healing well. small amt pale yellow sputum cleaned ); negative lymphadenopathy, JVD or tender Chest Wall Chest: Positive normal inspection of the chest and symmetric chest movement; negative increased A/P diameter Resp lung sounds: Positive clear to auscultation, diminished, normal expiratory time and normal respiratory effort; negative wheezes, rhonchi, rales, dullness to percussion or wheeze present on forced exhalation Cardio Cardiac: Positive regular rate, regular rhythm, S1 normal and S2 normal; negative murmur GI GI: Positive normal to inspection; negative distended Genitourinary: Positive deferred Musc Musculoskeletal: Positive steady gait and ROM normal; negative kyphosis or scoliosis Skin Pulmonary Skin Exam: Positive intact; negative rash Pulses Pulse: Yes pulses normal x4 extremities Extremities Extremities: Yes capillary refill normal, No clubbing, No cyanosis, No edema Neuro Neurologic: Yes conversant, Yes no focal neuro deficits, Yes normal concentration, Yes understands questions, Yes cooperative, Yes normal cognition, Yes normal coordination Lymph Lymphatic: No lymphadenopathy, No tenderness, No cervical adenopathy Psych Appearance: Positive grossly normal, eye contact and well kempt Mental Status: Positive mental status grossly normal Mood: Positive congruent mood Affect: Positive normal affect Coding Level of Care Code Off vis,est,level 3 Diagnoses Tracheostomy present Z93.0 05/05/18 1754 <Electronically signed by Abimbola STRAUSS> Date Abimbola STRAUSS Cosigner Signature: Date (if applicable) CC: Jack Olmedo MD ECHOCARDIOGRAM COMPLETE Observed: 05/05/2018 Status: F Source: [place] 5:37 PM [facility] Cardiovascular Services [address] [place] [address] Echo Complete 05/05/18 0827 MR#: [id number] Acct: [id number] Name: NAVEEN AKINS Rep #: [id number] : 1940 78 From: Naveen Huffman MD Attending Dr: Corey Arizmendi Status: ADM BURKE Ordering Dr: Genaro Galeano MD Date: 05/05/18 Location: [facility] Sex: M C Admitted: 05/05/18 Reason For Study: TIA/CVA Procedure This was a 2D Doppler, Color Flow transthoracic echocardiogram. Technically difficult study due to patient condition. The study was technically difficult. Exam performed portable in patient room. Left Ventricle Normal LV size. Left ventricular systolic function is normal. The estimated ejection fraction is 60 %. No evidence for diastolic dysfunction. No regional wall motion abnormalities noted. Right Ventricle Normal RV size. Normal systolic function. Atria Normal left atrium. Normal right atrium. No doppler evidence for ASD. Mitral Valve There is no mitral annular calcification. Normal mitral valve. Trivial mitral valve insufficiency. Tricuspid Valve Normal tricuspid valve. Trivial tricuspid valve insufficiency. Unable to estimate RV systolic pressure/pulmonary artery pressure due to technically difficult study. Aortic Valve Trisinus/trileaflet aortic valve. Normal aortic valve. Pulmonic Valve The pulmonic valve is not well visualized. Trivial pulmonic valve insufficiency. Great Vessels Normal sized aortic root. Pericardium/Pleural No pericardial effusion. Medication Performed a rapid injection of agitated mix of 9 cc saline and 1cc air to assess for atrial septal defect. MMode/2D Measurements AND Calculations LVIDd: 4.8 cm IVSd: 1.3 cm Ao root diam: 4.1 cm LVIDs: 3.5 cm LVPWd: 1.00 cm LA dimension: 3.2 cm RVDd: 3.2 cm FS: 28.4 % Time Measurements MV dec time: 0.23 sec Doppler Measurements AND Calculations MV E max maylin: 53.8 cm/sec Lat Peak E' Maylin: 10.1 cm/sec Med Peak E' Maylin: 7.5 cm/sec MV A max maylin: 105.9 cm/sec E/E' lat: 5.3 E/E' med: 7.1 MV E/A: 0.51 MV V2 max: 114.6 cm/sec MV P1/2t max maylin: 56.9 cm/sec Ao V2 max: 127.3 cm/sec MV max P.3 mmHg MV P1/2t: 83.6 msec Ao max P.5 mmHg MV V2 mean: 55.8 cm/sec Ao V2 mean: 82.1 cm/sec MV mean P.5 mmHg MV dec slope: 199.5 cm/sec2 Ao mean P.1 mmHg MV V2 VTI: 20.1 cm MVA(P1/2t): 2.6 cm2 Ao V2 VTI: 23.7 cm LV V1 max: 97.1 cm/sec PA V2 max: 85.7 cm/sec LV V1 max P.8 mmHg LV V1 mean P.9 mmHg LV V1 mean: 64.3 cm/sec LV V1 VTI: 21.9 cm Interpretation Summary The study was technically difficult. Left ventricular systolic function is normal. The estimated ejection fraction is 60 %. Trivial mitral valve insufficiency. Trivial tricuspid valve insufficiency. Trivial pulmonic valve insufficiency. Unable to estimate RV systolic pressure/pulmonary artery pressure due to technically difficult study. No evidence for diastolic dysfunction. Ordering Physician: Genaro Galeano Referring Physician: JACK OLMEDO Performed By: Gus Mena RCS 05/05/18 173 Date Naveen Huffman MD CC: Jack Olmedo MD; Corey Arizmendi; Genaro Galeano MD Date Dictated: 05/05/18 0827 Date Transcribed: 05/05/181735 Senior Major Gifts Officer: Signed CONSULTATION Observed: 05/05/2018 Status: F Source: [place] 1:11 PM [facility] Medical Records Department [address] [place] [address] Consultation 05/05/18 1014 MR#: [id number] Acct: [id number] Name: NAVEEN AKINS Rep #: [id number] : 1940 78 From: Abdullahi Styles MD PCP: Jack Olmedo MD Status: ADM BURKE Y Location: [place] [address] Reason for Consult Date of Consultation: 05/05/18 Reason for Consultation: tia History of Present Illness: 78 yo male was on tcu yesterday, at 11pm noted left facial droop, improved over the ensuing hours, son who is at bedside notes essentially no facial droop by 3am. he wonders if left leg is still weak however. originally hosptilized 01/11/18 due to ruptured AAA, underwent surgery and has had a prolonged hospitalization with multiple complications as below. when his he had his anuerysmal rupture he underwent cpr for entire helicopter ride [facility] to [facility]. son notes progressive improvement in cognition since tcu admission a few weeks ago. also intermittent confusion. 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 Patient was seen normal about 140 minutes before his stroke- liek symptoms was observed. His family reported that patient had a change in mental status and his left eye appeared closed. TC nurses reported that patient had left facial droop and decreased hand coffee break attendant on the left side. Stroke alert was called and after examination patient was sent for a CT of his head. Per neurologist recommendation CT of his head and CTA of his head and neck was obtained. Subsequently patient was sent to the emergency department. CTA of head and neck was unremarkable for any stenosis or vascular disease. CT of his head was unremarkable for any hemorrhage. At the emergency department patient had an initial NIH of 6. While at emergency department patient, family who were present confirmed the patient was improving considerable. Past Medical History Past Medical History (Chronic Problems): Chronic Problems (Last Reviewed 05/05/18 @ 11:10 by Abdullahi Styles MD) Hyperlipidemia (Chronic) Iron deficiency anemia (Chronic) GERD (gastroesophageal reflux disease) (Chronic) Dysphagia (Chronic) Anemia (Chronic) Vasovagal syndrome (Chronic) Coronary artery disease (Chronic) Coronary artery disease (Chronic) Hypertension (Chronic) Medical History: Medical History (Last Reviewed 05/05/18 @ 11:10 by Abdullahi Styles MD) Abdominal aortic aneurysm, ruptured (Resolved) I71.3 01/11/2018 Cardiac arrest (Resolved) I46.9 Anoxic encephalopathy (Resolved) G93.1 Hyperlipidemia (Chronic) E78.5 Acute kidney injury (Acute) N17.9 Tachycardia (Resolved) R00.0 DIC (disseminated intravascular coagulation) (Resolved) D65 Ileus (Resolved) K56.7 Iron deficiency anemia (Chronic) D50.9 GERD (gastroesophageal reflux disease) (Chronic) K21.9 Dysphagia (Chronic) R13.10 HCAP (healthcare-associated pneumonia) (Resolved) J18.9 Anemia (Chronic) D64.9 Unresponsive state (Resolved) R41.89 Change in mental status (Acute) R41.82 Vasovagal syndrome (Chronic) R55 Aspiration pneumonia (Acute) J69.0 Coronary artery disease (Chronic) I25.10 Coronary artery disease (Chronic) I25.10 Hypertension (Chronic) I10 Allergies famotidine [From Pepcid] Adverse Reaction (Verified 05/03/18 11:22) Low blood pressure metoclopramide [From Reglan] Adverse Reaction (Verified 05/03/18 11:22) Other Home Medications: Ambulatory Orders Medication Instructions Recorded Surgical History: Surgical History (Last Reviewed 05/05/18 @ 11:11 by Abdullahi Styles MD) H/O abdominal aortic aneurysm repair Z98.890 7 surgeries related to this, also had a wound vac H/O heart artery stent Z95.5 H/O hernia repair Z98.890, Z87.19 Hx of cholecystectomy Z90.49 Left shoulder surgery 1998? 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 Psychiatric History: No pertinent psych hx Lives: - - Was at the Transitional care unit. prior to january lived independently with his . Smoking Status: Never smoker - *Family History Paternal Family History: Family History (Last Reviewed 05/05/18 @ 11:12 by Abdullahi Styles MD) Sister Factor 5 Leiden mutation, heterozygous Aneurysm Sister Aneurysm History Items: - - No marked maternal or paternal family history reported including HD, DM, CA. Maternal Family History: Family History (Last Reviewed 05/05/18 @ 11:12 by Abdullahi Styles MD) Sister Factor 5 Leiden mutation, heterozygous Aneurysm Sister Aneurysm History Items: - - No marked maternal or paternal family history reported including HD, DM, CA. Review of Systems Neurological: Reports: Balance problems, Focal weakness Patient Problems: Active and Suspected Problems (Last Reviewed 05/05/18 @ 11:10 by Abdullahi Styles MD) Stroke-like symptoms (Acute) - Physical Exam General: Alert, Cooperative, No apparent distress - doesnt know location or month, knows president HEENT: Atraumatic, PERRLA, EOMI Neurological: Cranial nerves II-XII grossly intact, Deep Tendon Reflexes 2+/4 and Symmetrical Psych/Mental Status: Flat Affect Vital Signs Temp Pulse Resp BP Pulse Ox 36.6 C 83 16 113/71 97 05/05/18 10:00 05/05/18 10:00 05/05/18 10:00 05/05/18 10:00 05/05/18 10:00 Oxygen Delivery Method Room Air Weight: 69 kg Body Mass Index (BMI) 21.8 Finger Stick Blood Glucose 104 Intake and Output for Last 24 Hours Intake Total 228 / 228 Balance 228 / 228 Laboratory Tests Past 24 Hrs WBC 5.4 RBC 3.15 L Hgb 9.3 L Hct 28.2 L MCV 89.5 MCH 29.5 MCHC 33.0 RDW 15.3 H RDW Differential 50.3 H WBC POC Glucose POC Glucose [address] reviewed, atrophy. CTA reviewed no significant stenosis in the neck Current Medications Generic Name Dose Route Start Last Admin Trade Name Freq PRN Reason Stop Dose Admin Acetaminophen 650 mg 05/05/18 02:15 Tylenol Liquid GT Assessment/Plan All Active Problems (Last Reviewed 05/05/18 @ 11:10 by Abdullahi Styles MD) Stroke-like symptoms (Acute) Abdominal aortic aneurysm, ruptured (Resolved) Cardiac arrest (Resolved) Anoxic encephalopathy (Resolved) Acute kidney injury (Acute) Tachycardia (Resolved) DIC (disseminated intravascular coagulation) (Resolved) Ileus (Resolved) HCAP (healthcare-associated pneumonia) (Resolved) Unresponsive state (Resolved) Change in mental status (Acute) Aspiration pneumonia (Acute) TIA, superimposed on encephalopathy likely due to OPAL in january consequent to AAA rupture, possible hypotension asa mri if able tele pt/ot/sp await echo 05/05/18 1311 <Electronically signed by Abdullahi Styles MD> Date Abdullahi Styles MD Cosigner Signature (if applicable): Date CC: Kelton Mcclendon MD; Jack Olmedo MD Signed BRAIN W/WO CONTRAST Observed: 05/05/2018 Status: F Source: [place] 1:10 PM [facility] Imaging Services [address] [place] [address] Brain W/WO Contrast MR#: [id number] Acct: [id number] Name: NAVEEN AKINS Rep #: [id number] : 1940 78 From: Benigno Fatima MD PCP: Jack Olmedo MD Status: ADM IN Study: Brain W/WO Contrast Date of Exam: 05/05/18 Exam# [id number] Ordering Dr: Abdullahi Styles MD STUDY: MRI BRAIN WITH AND WITHOUT CONTRAST REASON FOR EXAM: Male, 78 years old. Patient unresponsive TECHNIQUE: Standardized multiplanar fat and water weighted pulse sequences were obtained. 7 ml of Gadavist contrast material was administered intravenously for the contrast portion of the examination. COMPARISON: CT of the brain on May 04, 2018 FINDINGS: Moderate atrophy and mild periventricular white matter ischemic changes.. Old lacunar infarct in the body of the right caudate nucleus Normal bilateral basal ganglia. Normal thalami. There is no extra-axial fluid accumulation. Normal flow voids within the major intracranial circulation suggesting patency by spin echo criteria. Normal venous enhancement. There is no enhancing intra-axial or extra-axial abnormality. Normal sella turcica, pituitary gland, infundibular stalk, optic chiasm and hypothalamus. Normal tectal plate and pineal gland. Normal midbrain, angie and medulla. Normal cerebellum. Normal basal cisterns. Normal bilateral temporal bones. Normal bilateral internal auditory canals. Fluid signal within the mastoids bilaterally which may be consistent with inflammatory disease. No demonstrated orbital abnormality, within the constraints of a routine brain study. Moderate mucosal thickening left maxillary sinus and diffuse mucosal thickening within the ethmoid sinuses bilaterally as well as the right sphenoid sinus. Normal calvarium and skull base. Normal visualized soft tissue structures. Normal visualized upper cervical spine. MRI/Brain W/WO Contrast IMPRESSION: Moderate atrophy and mild periventricular white matter ischemic changes. Old right lacunar infarct. No acute ischemic changes.. Electronically Signed: Benigno Fatima MD at 18:14 EST , Service support , CC: Jack Olmedo MD; Abdullahi Styles MD Senior Major Gifts Officer: Signed BEDSIDE GLUCOSE Collected: 05/05/2018 Status: F Source: [place] 12:56 PM [facility] REPOSITORY TYPE CODE TESTS RESULT OUT OF RANGE REFERENCE UNITS LAB L501.080 70-110 mg/dL Normal BEDSIDE GLU 110 Result Comment: MANAGEMENT OF PATIENT CARE PER NURSING PROTOCOL Performed By: #### L501.080 #### [facility] Point of Care [address] [place] [address]. [place] [address] DISCHARGE SUMMARY Observed: 05/05/2018 Status: F Source: [place] 8:29 AM [facility] Medical Records Department [address] [place], [place] [address] [address] Discharge Summary 05/05/18 0826 MR#: [id number] Acct: [id number] Name: NAVEEN AKINS Rep #: [id number] : 1940 78 From: Jh Gustafson MD PCP: Jack Olmedo MD Status: DIS IN Y Location: [address] Discharge Date and Diagnosis - Problem List Patient Problems: Active and Suspected Problems (Last Reviewed 05/05/18 @ 04:49 by Genaro Galeano MD) Stroke-like symptoms (Acute) Date of Admission: 04/04/18 Date of Discharge: 05/05/18 - Primary Discharge Diagnosis Active and Suspected Problems (Last Reviewed 05/05/18 @ 04:49 by Genaro Galeano MD) Stroke-like symptoms (Acute) - Secondary Discharge Diagnosis Chronic Problems (Last Reviewed 05/05/18 @ 04:49 by Genaro Galeano MD) Hyperlipidemia (Chronic) Iron deficiency anemia (Chronic) GERD (gastroesophageal reflux disease) (Chronic) Dysphagia (Chronic) Anemia (Chronic) Vasovagal syndrome (Chronic) Coronary artery disease (Chronic) Coronary artery disease (Chronic) Hypertension (Chronic) Hospital Course and Treatment Operations: None Procedures: None Summary of Care Provided: The patient is a 78 year old Male with below past medical history significant for ruptured AAA status post emergent repair, hospitalized for change in mental status secondary to vasovagal syndrome, complicated by E. Cl[place] HCAP, anemia, admitted to TCU with debility, here for rehabilitation, strengthening, prior to disposition determination. 05/04/18 Left facial droop, left sided weakness, stroke team activated. Discharge to [facility] Emergency Department for evaluation, admission to hospital. Patient Problems: Active and Suspected Problems (Last Reviewed 05/05/18 @ 04:49 by Genaro Galeano MD) Stroke-like symptoms (Acute) - Physical Exam Vital Signs Temp Pulse Resp BP Pulse Ox 98.9 F 78 19 H 85/49 L 98 05/04/18 23:24 05/04/18 23:24 05/04/18 23:24 05/04/18 23:24 05/04/18 23:24 Oxygen Flow Rate (L/min) 2 Oxygen Delivery Method Room Air Weight: 68.855 kg Body Mass Index (BMI) 23.0 Finger Stick Blood Glucose 112 Intake and Output for Last 24 Hours Intake Total 745 / 745 383 / 383 Balance 745 / 745 383 / 383 POC Glucose POC Glucose 112 H Discharge Diet: - - Puree, Artemus thick, Twocal 40ML/hour. Discharge Activity: Use Walker Weight Bearing Status: Weight bearing as tolerated Call your doctor if you observe: Fever of 101 or Higher, Inability to urinate, Inability to have a bowel movement, Shortness of breath, Chest pain, Uncontrolled pain Home Medications: Medications to take at Discharge Chlorhexidine 15 ml PO BID 03/28/18 Docusate Sodium [COLACE LIQUID] 100 mg GT BID 03/28/18 Ferrous Sulfate Syrup 300 mg GT BID 03/28/18 Heparin Injection 5,000 units SUBCUT BID 03/28/18 Ipratropium/Albuterol Sulfate [Duoneb] 3 ml INHALATION TID 03/28/18 Lansoprazole [Prevacid] 30 mg GT DAILY 03/28/18 Metoprolol Tartrate [Lopressor (beta lyric)] 12.5 mg GT BID 03/28/18 Nystatin 100,000 unit PO 4X/DAY 03/28/18 Propylene Glycol/Peg 400/Pf [Systane 0.3-0.4% Eye Drop] 1 ea OP BID 03/28/18 Albuterol Aerosols [Ventolin Aerosols] 2.5 mg INHALATION Q2H PRN PRN vial.neb. 04/04/18 0.9% Normal Saline 60 ml IV Q16H 05/05/18 Acetaminophen Liquid [Tylenol Liquid] 650 mg GT Q4H PRN PRN 05/05/18 Melatonin 3 mg PO QHS 05/05/18 Menthol/Lanolin/Calamine/Znox [Calmoseptine Ointment] 1 applic TOPICAL BID 05/05/18 Nut.sup,Spec,Lac-Free,Iron/Fos [Twocal Hn Liquid] 40 ml GT DAILY 05/05/18 Polyvinyl Alcohol [Artificial Tears] 1 drop OP Q4H PRN 05/05/18 Primary Care Physician: Jack Olmedo MD [Primary Care Provider] - Please follow up with your Primary Care Physician in: 1 week. Please Follow Up With: Dr Nelson Mathews When: July 2018 Disposition: Acute care Hospital Minutes spent on discharge:: 30 Patient Condition:: Guarded Medical Necessity - Tobacco Use Smoking Status: Never smoker Tobacco Use: Non-smoker Meaningful Use Info Meaningful Use Diagnoses (Choose all that apply): None applicable 05/05/18 2129 <Electronically signed by Jh Gustafson MD> Date Jh Gustafson MD Cosigner Signature (if applicable): Date CC: Jack Olmedo MD; Jh Gustafson MD Signed DISCHARGE INSTRUCTION Observed: 05/05/2018 Status: F Source: [place] 8:26 AM [facility] Medical Records Department [address] [place] [address] Instructions for Home/Discharge Instructions 05/05/18 0824 MR#: [id number] Acct: [id number] Name: NAVEEN AKINS Rep #: [id number] : 1940 78 From: Jh Gustafson MD PCP: Jack Olmedo MD Status: DIS IN - Discharge Diagnoses Current Active Problems: Current Active and Chronic Problems (Last Reviewed 05/05/18 @ 04:49 by Genaro Galeano MD) Stroke-like symptoms (Acute) Your food should be the consistency of: Puree Your liquids should be the consistency of: Artemus Thick Discharge Activity: Use Walker Weight Bearing Status: Weight bearing as tolerated Call your doctor if you observe: Fever of 101 or Higher, Inability to urinate, Inability to have a bowel movement, Shortness of breath, Chest pain, Uncontrolled pain Allergies/Adverse Reactions: Allergies famotidine [From Pepcid] Adverse Reaction (Verified 05/03/18 11:22) Low blood pressure metoclopramide [From Reglan] Adverse Reaction (Verified 05/03/18 11:22) Other Medications to take at Discharge Chlorhexidine 15 ml PO BID 03/28/18 Docusate Sodium [COLACE LIQUID] 100 mg GT BID 03/28/18 Ferrous Sulfate Syrup 300 mg GT BID 03/28/18 Heparin Injection 5,000 units SUBCUT BID 03/28/18 Ipratropium/Albuterol Sulfate [Duoneb] 3 ml INHALATION TID 03/28/18 Lansoprazole [Prevacid] 30 mg GT DAILY 03/28/18 Metoprolol Tartrate [Lopressor (beta lyric)] 12.5 mg GT BID 03/28/18 Nystatin 100,000 unit PO 4X/DAY 03/28/18 Propylene Glycol/Peg 400/Pf [Systane 0.3-0.4% Eye Drop] 1 ea OP BID 03/28/18 Albuterol Aerosols [Ventolin Aerosols] 2.5 mg INHALATION Q2H PRN PRN vial.neb. 04/04/18 0.9% Normal Saline 60 ml IV Q16H 05/05/18 Acetaminophen Liquid [Tylenol Liquid] 650 mg GT Q4H PRN PRN 05/05/18 Melatonin 3 mg PO QHS 05/05/18 Menthol/Lanolin/Calamine/Znox [Calmoseptine Ointment] 1 applic TOPICAL BID 05/05/18 Nut.sup,Spec,Lac-Free,Iron/Fos [Twocal Hn Liquid] 40 ml GT DAILY 05/05/18 Polyvinyl Alcohol [Artificial Tears] 1 drop OP Q4H PRN 05/05/18 Primary Care Physician: Jack Olmedo MD [Primary Care Provider] - Please follow up with your Primary Care Physician in: 1 week. Test Results: Test results from this visit will be discussed in further detail at your follow-up appointment, if applicable. Please Follow Up With: Dr Nelson Mathews When: July 2018 Proposed Discharge Date: 05/05/18 05/05/18825 <Electronically signed by Jh Gustafson MD> Date Jh Gustafson MD CC: Jack Olmedo MD HISTORY AND PHYSICAL Observed: 05/05/2018 Status: F Source: [place] EXAM 5:26 AM [facility] REPOSITORY [facility] Medical Records Department [address] [place] [address] History and Physical 05/05/18 0352 MR#: [id number] Acct: [id number] Name: NAVEEN AKINS Rep #: [id number] : 1940 78 From: Genaro Galeano MD PCP: Jack Olmedo MD Status: ADM BUR[facility] Y Location: [place] [address] Problem List (1) Stroke-like symptoms Status: Acute History of Present Illness Date of Admission: 05/05/18 Chief Complaint: altered mental status The patient is a 78 year old M with a significant history of metallic jerry in his left shoulder; Factor V Liden deficiency; CAD s/p stent; abdominal aortic aneurysm rupture status post repair and with complications of surgery that led to intubation and subsequent trach and PEG tube; cardiac arrest; multiple episodes of unresponsiveness that was attributed to vagal stimulation from getting nauseous from tube feeding; tremor that was attributed to previous use of Reglan; hypertension; hyperlipidemia; iron deficiency anemia; that was transferred from the TCU to the ED because of strokelike symptoms. Patient was seen normal about 140 minutes before his stroke- liek symptoms was observed. His family reported that patient had a change in mental status and his left eye appeared closed. TC nurses reported that patient had left facial droop and decreased hand coffee break attendant on the left side. Stroke alert was called and after examination patient was sent for a CT of his head. Per neurologist recommendation CT of his head and CTA of his head and neck was obtained. Subsequently patient was sent to the emergency department. CTA of head and neck was unremarkable for any stenosis or vascular disease. CT of his head was unremarkable for any hemorrhage. At the emergency department patient had an initial NIH of 6. While at emergency department patient, family who were present confirmed the patient was improving considerable. Past Medical History Past Medical History (Chronic Problems): Chronic Problems (Last Reviewed 05/05/18 @ 04:49 by Genaro Galeano MD) Hyperlipidemia (Chronic) Iron deficiency anemia (Chronic) GERD (gastroesophageal reflux disease) (Chronic) Dysphagia (Chronic) Anemia (Chronic) Vasovagal syndrome (Chronic) Coronary artery disease (Chronic) Coronary artery disease (Chronic) Hypertension (Chronic) Medical History: Medical History (Last Reviewed 05/05/18 @ 04:49 by Genaro Galeano MD) Abdominal aortic aneurysm, ruptured (Resolved) I71.3 01/11/2018 Cardiac arrest (Resolved) I46.9 Anoxic encephalopathy (Resolved) G93.1 Hyperlipidemia (Chronic) E78.5 Acute kidney injury (Acute) N17.9 Tachycardia (Resolved) R00.0 DIC (disseminated intravascular coagulation) (Resolved) D65 Ileus (Resolved) K56.7 Iron deficiency anemia (Chronic) D50.9 GERD (gastroesophageal reflux disease) (Chronic) K21.9 Dysphagia (Chronic) R13.10 HCAP (healthcare-associated pneumonia) (Resolved) J18.9 Anemia (Chronic) D64.9 Unresponsive state (Resolved) R41.89 Change in mental status (Acute) R41.82 Vasovagal syndrome (Chronic) R55 Aspiration pneumonia (Acute) J69.0 Coronary artery disease (Chronic) I25.10 Coronary artery disease (Chronic) I25.10 Hypertension (Chronic) I10 Allergies famotidine [From Pepcid] Adverse Reaction (Verified 05/03/18 11:22) Low blood pressure metoclopramide [From Reglan] Adverse Reaction (Verified 05/03/18 11:22) Other Home Medications: Ambulatory Orders Medication Instructions Recorded Surgical History: Surgical History (Last Reviewed 05/05/18 @ 04:49 by Genaro Galeano MD) H/O abdominal aortic aneurysm repair Z98.890 7 surgeries related to this, also had a wound vac H/O heart artery stent Z95.5 H/O hernia repair Z98.890, Z87.19 Hx of cholecystectomy Z90.49 Left shoulder surgery 1998? 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 Psychiatric History: No pertinent psych hx Lives: - - Was at the Transitional care unit Smoking Status: Never smoker - *Family History Paternal Family History: Family History (Last Reviewed 05/05/18 @ 04:50 by Genaro Galeano MD) Sister Factor 5 Leiden mutation, heterozygous Aneurysm Sister Aneurysm History Items: - - No marked maternal or paternal family history reported including HD, DM, CA. Maternal Family History: Family History (Last Reviewed 05/05/18 @ 04:50 by Genaro Galeano MD) Sister Factor 5 Leiden mutation, heterozygous Aneurysm Sister Aneurysm History Items: - - No marked maternal or paternal family history reported including HD, DM, CA. Review of Systems Constitutional: Reports: Weakness HEENT: Denies: Head Aches, Sinus Congestion, Sinus Drainage Cardiovascular: Denies: Chest Pain, Palpitations Respiratory: Denies: Cough, Shortness of breath at rest, Sputum production Gastrointestinal: Reports: Nausea. 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 Denies: Numbness, Tingling Psychiatric: Denies: Anxiety, Depression, Homicidal Ideations, Suicidal Ideations Hematologic/ Lymphatic: Denies: Easy Bruising, Easy Bleeding VTE Information - Inpt Only VTE Present on Admission: No VTE Mechan Device Prophylaxis: None VTE Pharm Prophylaxis ordered?: Yes Patient Problems: Active and Suspected Problems (Last Reviewed 05/05/18 @ 04:49 by Genaro Galeano MD) Stroke-like symptoms (Acute) - Physical Exam General: Alert, Cooperative, - - Oriented to slef. Initially patient thought that he was at [facility]. Patient did not know the month. He thought that the month was May while it was the later part of April. HEENT: Atraumatic, Normocephalic Neck: Supple, No JVD, Negative Carotid Bruits Lungs: Clear to auscultation, Normal air movement Cardiovascular: Regular rate, No murmurs Abdomen: Bowel Sounds Present, Soft, Non Tender, - - Healed abdominal scars Extremities: No edema, Capillary Refill Less than 3 Seconds Skin: No rashes, No breakdown Musculoskeletal: No Muscle Wasting Neurological: Cranial nerves II-XII grossly intact, Facial Droop - Mild facial droop at the left mouth., - - No dysarthria. Can lift bilateral legs marginally with Left side worse than right side. He has had knee replacement of the left side. Yet thigh strength in right side is 5/5; and 4/5 at the left side. Can smile. Can open and close eye lid. Can not count fingers accurately but patient started that he uses glasses and have eye problem for which he has to see an opthalmologist. Grossly patient can see. Tremors with finger to nose test taht patient attributes to previous reglan use. Psych/Mental Status: Normal Affect, Appropriate Vital Signs Temp Pulse Resp BP Pulse Ox 97.8 F 81 16 102/59 L 96 05/05/18 02:22 05/05/18 02:22 05/05/18 02:22 05/05/18 02:22 05/05/18 02:22 Oxygen Delivery Method Room Air Weight: 69 kg Body Mass Index (BMI) 21.8 Finger Stick Blood Glucose 104 Laboratory Tests Past 24 Hrs WBC 5.4 RBC 3.15 L Hgb 9.3 L Hct 28.2 L MCV 89.5 MCH 29.5 MCHC 33.0 RDW 15.3 H RDW Differential 50.3 H WBC RBC Hgb Hct MCV MCH MCHC RDW POC Glucose POC Glucose 93 104 Assessment/Plan All Active Problems (Last Reviewed 05/05/18 @ 04:49 by Genaro Galeano MD) Stroke-like symptoms (Acute) Abdominal aortic aneurysm, ruptured (Resolved) Cardiac arrest (Resolved) Anoxic encephalopathy (Resolved) Acute kidney injury (Acute) Tachycardia (Resolved) DIC (disseminated intravascular coagulation) (Resolved) Ileus (Resolved) HCAP (healthcare-associated pneumonia) (Resolved) Unresponsive state (Resolved) Change in mental status (Acute) Aspiration pneumonia (Acute) The patient is a 78 year old M with a significant history of metallic jerry in his left shoulder; Factor V Liden deficiency; CAD s/p stent; abdominal aortic aneurysm rupture status post repair and with complications of surgery that led to intubation and subsequent trach and PEG tube; cardiac arrest; multiple episodes of unresponsiveness that was attributed to vagal stimulation from getting nauseous from tube feeding; tremor that was attributed to previous use of Reglan; hypertension; hyperlipidemia; iron deficiency anemia; that was transferred from the TCU to the ED because of strokelike symptoms but noted to have improvement in his stroke-like symptoms. Strokelike symptoms This is likely a TIA. Patient has improved dramatically from when he was at the TCU at the time of stroke alert. His dysarthria has resolved. His left mouth droop has improved with only very slight mouth droop present. He is more alert and can hold a conversation. At the time of stroke alert patient could not hold a conversation. Patient has a coronary stent and MRI would not be ordered. Moreover patient is rapidly improving and MRI would not change any management. Echocardiogram ordered. Fasting lipids and A1c ordered. Patient passed dysphagia screen. Aspirin and high intensity statin started. PT, OT and speech therapy to work with patient. Home metoprolol discontinued for permissive hypertension. At the TCU after receiving his evening metoprolol his systolic blood pressure was about 88. He was on normal saline 60 mL's per hour at a TCU for hydration. We will continue gentle fluid at 75 mL's Normal Saline per hour for 1 L. TERENCE His baseline creatinine is about 1.25. On 05/03/2018 his creatinine was 1.67;. His BUN is also above baseline. His BUN over creatinine is more than 20. Likely TERENCE is prerenal in etiology from hypovolemia. Of note his creatinine has been improving. His creatinine at the emergency department was 1.39. Continue gentle IV hydration as above. Avoid nephrotoxic's. Debility After his aortic aneurysm repair patient has been at the rehab. PT, OT and ST to continue with the patient. Trach care once a day. Feeding After his aortic aneurysm rupture patient ended up requiring tube feeding. At the TCU patient was getting tube feeding 2Cal 40 mL's per hour from 8 PM to 8 AM. Because of reported nausea will cutdown his nightly tube feeding to 20 mL's per hour. Patient diet was advanced to mechanical soft while at the TCU. We will continue cardiac mechanical soft diet and liquids per Speech recommendation. DVT Heparin subcutaneous continued. Code Visit OBSV E AND M: [id number] Initial observation care L3 05/05/18 0526 <Electronically signed by Genaro Galeano MD> Date Genaro Galeano MD Cosigner Signature: Date (if applicable) CC: Jack Olmedo MD; Genaro Galeano MD Signed BEDSIDE GLUCOSE Collected: 05/05/2018 Status: F Source: [place] 3:30 AM [facility] REPOSITORY TYPE CODE TESTS RESULT OUT OF RANGE REFERENCE UNITS LAB L501.080 70-110 mg/dL Normal BEDSIDE GLU 93 Result Comment: MANAGEMENT OF PATIENT CARE PER NURSING PROTOCOL Performed By: #### L501.080 #### [facility] [place], [place] [id number] TROPONIN-I Collected: 05/05/2018 Status: F Source: [place] 2:35 AM [facility] REPOSITORY TYPE CODE TESTS RESULT OUT OF RANGE REFERENCE UNITS LAB L501.4010 <0.045 ng/mL Normal < 0.015 TROPONIN-I Result Comment: TROPONIN-I EXPECTED VALUES <0.045 Negative 0.045 - 0.590 Consistent with Cardiac Damage > OR = 0.600 Critical Value Not every elevated troponin is indicative of VT. These values should be used with clinical judgement in examining the patient's clinical picture for diagnosis. To establish a diagnosis of VT versus myocardial injury, there must be a demonstrated rise and/or fall in the troponin values, in addition to ischemic symptoms, EKG changes, new regional wall motion abnormality, and/or angiographical evidence. PLEASE NOTE: REFERENCE RANGES EDITED 17 Performed By: #### L501.4010 #### [facility] [address] [place], [address] BASIC METABOLIC Collected: 05/05/2018 Status: F Source: [place] PROFILE (BMP) 2:35 AM [facility] REPOSITORY TYPE CODE TESTS RESULT OUT OF RANGE REFERENCE UNITS LAB L501.0100 74-106 mg/dL Normal GLU 88 Result Comment: Please note revised GLUCOSE reference range effective 2017. LAB L501.1000 7-18 mg/dL High BUN 31 LAB L501.1100 0.70-1.30 mg/dL High CREAT,SERUM 1.43 Result Comment: The validity of the calculated GFR AND GFRAA in patients over 70 years has not been determined. Clinical correlation is essential. LAB L501.1110 >60 mL/min Low EST GFR 51 Result Comment: Non- GFR Calc LAB L501.1115 >60 mL/min Normal EST GFR - AA 62 Result Comment: GFR Calc LAB L501.1255 ml/min Normal Estimated CRCL 41.55 LAB L501.1300 10-20 RATIO High BUN/CRE 21.7 LAB L501.2200 8.5-10 mg/dL Normal .1 CA 9.9 LAB L501.5300 136-14 mmol/L Normal 5 NA 141 LAB L501.5600 3.5-5. mmol/L Normal 1 K 4.3 LAB L501.5900 98-107 mmol/L Normal CL 104 LAB L501.6100 21.0-3 mmol/L Normal 2.0 CO2 26.0 LAB L501.6200 5-15 Normal GAP 11 Performed By: #### L500.2500, L500.4100 #### [facility] [address] [place], [address] LIPID PROFILE Collected: 05/05/2018 Status: F Source: [place] 2:35 AM [facility] REPOSITORY TYPE CODE TESTS RESULT OUT OF RANGE REFERENCE UNITS LAB L501.4900 200 mg/dL Normal CHOL 140 Result Comment: <200 mg/dL Desirable 200-240 mg/dL Borderline >240 mg/dL High Risk LAB L501.5000 mg/dL Normal TRIG 174 Result Comment: The drugs N-Acetylcysteine and Metamizole may falsely depress this assay. Serum Triglycerides Reference Interval Normal <150 mg/dL Borderline high 150 - 199 mg/dL High 200 - 499 mg/dL Very High > or = 500 mg/dL LAB L501.6400 mg/dL Low HDL 36 Result Comment: The drugs N-Acetylcysteine and Metamizole may falsely depress this assay. Reference Range HDL <40 mg/dL Low HDL Cholesterol HDL >or= 60 mg/dL High HDL Cholesterol LAB L501.6500 0-130 mg/dL Normal LDL 69 LAB L501.6600 5-40 mg/dL Normal VLDL 35 Performed By: #### L500.2500, L500.4100 #### [facility] [address] [place], [address] EMERGENCY DEPARTMENT Observed: 05/05/2018 Status: F Source: [place] SUMMARY 1:08 AM [facility] REPOSITORY [facility] Medical Records Department [address] [place] [address] Emergency Department Summary 05/05/18 0104 MR#: [id number] Acct: [id number] Name: NAVEEN AKINS Kaylah Rep #: [id number] : 1940 78 From: Yuri Infante MD PCP: Honorio LOREDO,Jack Status: REG ER - ER Visit Summary Date of Service: 05/05/18 Chief Complaint: Stroke History of Present Illness: The patient is a 78 M who presents with weakness. The patient has an extensive medical history. 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 He receives tube feeds. He has a history of coronary disease. He has also been having multiple transient episodes of unresponsiveness which have ultimately been attributed to vasovagal syncope. Tonight in the transitional care unit he was noted to have left-sided weakness and left-sided facial droop. He has slurred speech although family states this is near baseline. A stroke team was called. He went to CT and the hospitalist had also spoken to neurology prior to the patient coming to the emergency department here. Family notes that his symptoms do appear to be improving. Physical Examination: Afebrile vitals are normal Moist mucous membranes Heart regular rate and rhythm Lungs are clear Abdomen soft NIH stroke scale initially 6, he missed both questions he has left facial droop and left leg weakness and mild dysarthria Test Results: CT of the head showed no acute pathology. CTAs of the head and neck showed no dissection stenosis or large vessel occlusion. Labs notable for hemoglobin of 9.3 which appears to be near his baseline. Creatinine of 1.39 which is similar to prior labs. INR 1.2. Troponin negative. Chest x-ray shows right medial lung atelectasis versus infiltrate. Emergency Department Course and Treatment: Workup unremarkable as above. Patient does not meet any absolute contraindications to TPA. However in discussion with the neurologist we do note that he would be high risk due to his recent surgeries including tracheostomy, PEG tube, AAA repair. However these were not within the time frame to be an absolute contraindication. I discussed risks and benefits with the patient and family. Family notes that his symptoms do seem to be rapidly and significantly improving. Therefore TPA was not administered based on improving symptoms and TPA risks in this patient. Patient discussed with the hospitalist will be admitted. I do not believe his chest x-ray is related to the pneumonia as he does not have leukocytosis tachycardia fever cough. Treatment Plan: [] Disposition: Admit Impression: Stroke This note was generated with Platypi dictation software. It may contain incorrect words, spelling, and punctuation that were not noted in review of the chart prior to signing ED Disposition - Plan for ED Patient: Chief Complaint: Neuro S/Sx Referrals: Jack Olmedo MD [Primary Care Provider] - What to do if you have Problems For any increased pain, shortness of breath, bleeding, nausea or vomiting, chest pain, or any unexpected problems, contact your Primary Care Provider. Call [facility] ([phone]) or report to the closest Emergency Room. Call 911 if necessary. 05/05/18 0108 <Electronically signed by Yuri Infante MD> Date Yuri Infante MD Cosigner Signature (If Indicated): Date CC: Jack Olmedo MD CHEST 1 VIEW Observed: 05/04/2018 Status: F Source: [place] 11:46 PM [facility] REPOSITORY [facility] Imaging Services [address] [place] [address] Chest 1 View MR#: [id number] Acct: [id number] Name: NAVEEN AKINS Rep #: [id number] : 1940 78 From: Nehemiah Earl MD PCP: Jack Olmedo MD Status: REG ER Study: Chest 1 View Date of Exam: 05/04/18 Exam# [id number] Ordering Dr: Yuri Infante MD STUDY: X-RAY CHEST REASON FOR EXAM: Male, 78 years old. Neuro symptoms TECHNIQUE: Single AP portable view of the chest. COMPARISON: 04/18/2018 FINDINGS: Right medial lung base atelectasis versus infiltrate. There is no demonstrated pleural abnormality. Normal size heart. Normal mediastinum and maximilian. Normal visualized pulmonary arteries. There is atherosclerotic calcification of the aortic arch with tortuosity. There are diffuse degenerative changes of the visualized thoracic spine. Normal visualized ribs, clavicles, and shoulders. There is no demonstrated abnormality of the visualized soft tissue structures of the upper abdomen. RAD/Chest 1 View IMPRESSION: Right medial lung base atelectasis versus infiltrate Electronically Signed: Nehemiah Earl MD at 0:45 EST Tel , Service support , CC: Jack Olmedo MD; Yuri Infante MD Senior Major Gifts Officer: Signed CTA NECK W/WO Observed: 05/04/2018 Status: F Source: [place] CONTRAST 11:46 PM [facility] REPOSITORY [facility] Imaging Services [address] [place] [address] CTA Neck W/WO Contrast MR#: [id number] Acct: [id number] Name: NAVEEN AKINS Rep #: [id number] : 1940 M 78 From: Kristie Rubio MD PCP: Jack Olmedo MD Status: REG ER Study: CTA Neck W/WO Contrast Date of Exam: 05/04/18 Exam# [id number] Ordering Dr: Yuri Infante MD HISTORY: LEFT SIDE FACIAL DROOP TECHNIQUE: Routine carotid CT angiogram protocol was performed without and with IV contrast. Nascet criteria using the distal ICAs for comparison were used for evaluation of stenoses. 3D reconstructions were reviewed. A radiation dose optimization technique was used for this scan. IV Contrast dosage and agent: 75 cc Isovue-370 contrast COMPARISON: None FINDINGS: AORTIC ARCH AND BRANCHES: Normal anatomy, patent. RIGHT CCA: No occlusion, significant stenosis or dissection. RIGHT ICA: No occlusion, significant stenosis or dissection. LEFT CCA: No occlusion, significant stenosis or dissection. LEFT ICA: No occlusion, significant stenosis or dissection. RIGHT VERTEBRAL ARTERY: Small in caliber and patent. LEFT VERTEBRAL ARTERY: Dominant left vertebral artery which is patent BONES: Cervical spine multilevel degenerative spondylosis Subtotal opacification of the right sphenoid sinus. Left maxillary and left ethmoid sinusitis and minor dependent fluid within the right maxillary sinus. Partial opacification of the mastoid air cells bilaterally. CT/CTA Neck W/WO Contrast IMPRESSION: 1. No carotid dissection or significant carotid stenosis. 2. Bilateral patency of the vertebral arteries with the left vertebral artery dominant. 3. Paranasal sinusitis and bilateral mastoiditis. Details above Individualized dose optimization techniques were used for this CT. at 0031 Reported and signed by: Kristie Rubio MD N.B. : The above information has been verbally conveyed by Kristie Rubio to Dr. Arelis MD, on 05/05/2018 00:54:31 (ET). Electronically Signed: Kristie Ramiro, at 0:29 EST Tel , Service support , CC: Jack Olmedo MD; Yuri Infante MD Senior Major Gifts Officer: Signed CTA HEAD W/WO Observed: 05/04/2018 Status: F Source: [place] CONTRAST 11:46 PM [facility] REPOSITORY [facility] Imaging Services [address] [place] [address] CTA Head W/WO Contrast MR#: [id number] Acct: [id number] Name: NAVEEN AKINS Rep #: [id number] : 1940 M 78 From: Kristie Rubio MD PCP: Jack Olmedo MD Status: REG ER Study: CTA Head W/WO Contrast Date of Exam: 05/04/18 Exam# [id number] Ordering Dr: Yuri Infante MD HISTORY: LEFT SIDE FACIAL DROOP TECHNIQUE: Routine [place] of [place]/brain CT angiogram protocol was performed following IV contrast. 3D reconstructions were reviewed. A radiation dose optimization technique was used for this scan. IV Contrast dosage and agent: 75 cc Isovue 370 contrast COMPARISON: Noncontrast cranial CT 05/04/2019 FINDINGS: Dominant left vertebral artery and small caliber right vertebral artery which remains patent. Bilateral carotid patency and flow. Normal contrast filling of the anterior, middle, and posterior cerebral arteries bilaterally. No evidence of vascular malformation, aneurysm, or significant stenosis. Subtotal opacification of the right sphenoid sinus. Left maxillary sinus because of thickening and partial opacification of the left ethmoid air cells. Small dependent fluid within the right maxillary sinus. Partial opacification of the mastoid air cells bilaterally. CT/CTA Head W/WO Contrast IMPRESSION: 1. Patent [place] of [place]. No intracranial aneurysm, vascular malformation, or significant stenosis. 2. Bilateral patency of the vertebral arteries with the left vertebral artery dominant. 3. Bilateral mastoiditis and paranasal sinusitis. Details above. Individualized dose optimization techniques were used for this CT. at 0049 Reported and signed by: Kristie Rubio MD N.B. : The above information has been verbally conveyed by Kristie Rubio to Dr. Laverne MD, on 05/05/2018 00:54:44 (ET). Electronically Signed: Kristie Rubio, at 0:47 EST Tel , Service support , CC: Jack Olmedo MD; Yuri Infante MD Senior Major Gifts Officer: Signed CBC W/DIFF, AUTOMATED Collected: 05/04/2018 Status: F Source: [place] 11:45 PM [facility] REPOSITORY TYPE CODE TESTS RESULT OUT OF RANGE REFERENCE UNITS LAB L100.1000 4.4-11.0 K/mm3 Normal WBC 5.4 LAB L100.1200 4.6-6.2 M/mm3 Low RBC 3.15 LAB L100.1300 13.0-16.5 g/dl Low HGB 9.3 LAB L100.1400 40-54 % Low HCT 28.2 LAB L100.1500 80-94 fL Normal MCV 89.5 LAB L100.1600 27.0-32.0 pg Normal MCH 29.5 LAB L100.1700 32-36 g/gl Normal MCHC 33.0 LAB L100.1810 11.6-14.6 % High RDW CV 15.3 LAB L100.1820 35.1-43.9 fl High RDW SD 50.3 LAB L100.1900 150-450 K/mm3 Normal PLT 197 LAB L100.2000 6.2-12.0 fl Normal MPV 8.6 LAB L100.2100 47-70 % Low NEUT% 39.0 LAB L100.2200 19-41 % High LY% 45.2 LAB L100.2300 0-10 % Normal MONO% 8.7 LAB L100.2400 0-5 % High EO% 6.3 LAB L100.2500 0-1 % Normal BASO% 0.6 LAB L100.2550 0.0-0.9 % Normal IM GRAN % 0.200 Result Comment: IG% - Immature Granulocytes (promyelocytes, myelocytes and metamyelocytes) > 1% indicates that a LEFT SHIFT is Present. LAB L100.2620 2.0-7.7 X10 3/uL Normal Absolute Neut 2.1 LAB L100.2720 0.83-4.51 X10 3/ul Normal Absolute Lymph 2.45 Performed By: #### L100.0100 #### [facility] [address] [facility] [place], [address] PROTHROMBIN TIME W/INR Collected: 05/04/2018 Status: F Source: [place] 11:45 PM [facility] REPOSITORY TYPE CODE TESTS RESULT OUT OF RANGE REFERENCE UNITS LAB L300.4150 11.7-14.9 SECONDS High PROTIME 15.1 LAB L300.4200 Normal INR 1.2 Performed By: #### L300.3900, L300.4310 #### [facility] [address] [facility] [place], [address] PARTIAL THROMBOPLAST Collected: 05/04/2018 Status: F Source: [place] TIME 11:45 PM [facility] REPOSITORY TYPE CODE TESTS RESULT OUT OF REFERENCE UNITS RANGE LAB L300.4310 24.1-36.2 Seconds High PTT 45.7 Performed By: #### L300.3900, L300.4310 #### [facility] [address] [facility] [place], [address] BASIC METABOLIC Collected: 05/04/2018 Status: F Source: [place] PROFILE (BMP) 11:45 PM [facility] REPOSITORY TYPE CODE TESTS RESULT OUT OF RANGE REFERENCE UNITS LAB L501.0100 74-106 mg/dL Normal GLU 103 Result Comment: Fasting Glucose result from 100 to 125 mg/dL suggests IMPAIRED HOMEOSTASIS per A.D.A. criteria. Please note revised GLUCOSE reference range effective 2017. LAB L501.1000 7-18 mg/dL High BUN 32 LAB L501.1100 0.70-1.30 mg/dL High CREAT,SERUM 1.39 Result Comment: The validity of the calculated GFR AND GFRAA in patients over 70 years has not been determined. Clinical correlation is essential. LAB L501.1110 >60 mL/min Low EST GFR 53 Result Comment: Non- GFR Calc LAB L501.1115 >60 mL/min Normal EST GFR - AA 64 Result Comment: GFR Calc LAB L501.1255 ml/min Normal Estimated CRCL 45.22 LAB L501.1300 10-20 RATIO High BUN/CRE 23.0 LAB L501.2200 8.5-10 mg/dL Normal .1 CA 9.7 LAB L501.5300 136-14 mmol/L Normal 5 NA 137 LAB L501.5600 3.5-5. mmol/L Normal 1 K 4.1 LAB L501.5900 98-107 mmol/L Normal CL 105 LAB L501.6100 21.0-3 mmol/L Normal 2.0 CO2 26.0 LAB L501.6200 5-15 Normal GAP 6 Performed By: #### L500.2500, L501.4010 #### [facility] [address] [facility] [place], [address] TROPONIN-I Collected: 05/04/2018 Status: F Source: [place] 11:45 PM [facility] REPOSITORY TYPE CODE TESTS RESULT OUT OF RANGE REFERENCE UNITS LAB L501.4010 <0.045 ng/mL Normal < 0.015 TROPONIN-I Result Comment: TROPONIN-I EXPECTED VALUES <0.045 Negative 0.045 - 0.590 Consistent with Cardiac Damage > OR = 0.600 Critical Value Not every elevated troponin is indicative of VT. These values should be used with clinical judgement in examining the patient's clinical picture for diagnosis. To establish a diagnosis of VT versus myocardial injury, there must be a demonstrated rise and/or fall in the troponin values, in addition to ischemic symptoms, EKG changes, new regional wall motion abnormality, and/or angiographical evidence. PLEASE NOTE: REFERENCE RANGES EDITED 17 Performed By: #### L500.2500, L501.4010 #### [facility] [address] [facility]. [place], [place], [id number] HEMOGLOBIN A1C Collected: 05/04/2018 Status: F Source: [place] 11:45 PM [facility] REPOSITORY TYPE CODE TESTS RESULT OUT OF RANGE REFERENCE UNITS LAB L501.9985 4.2-6.3 % Normal HGB A1C 4.5 Performed By: #### L501.9985 #### [facility] [address] [place], [address] BEDSIDE GLUCOSE Collected: 05/04/2018 Status: F Source: [place] 11:44 PM [facility] REPOSITORY TYPE CODE TESTS RESULT OUT OF RANGE REFERENCE UNITS LAB L501.080 70-110 mg/dL Normal BEDSIDE GLU 104 Result Comment: MANAGEMENT OF PATIENT CARE PER NURSING PROTOCOL Performed By: #### L501.080 #### [facility] Point of Care [address] [place] [address] BRAIN/HEAD WITHOUT Observed: 05/04/2018 Status: F Source: [place] CONTRAST 11:29 PM [facility] REPOSITORY [facility] Imaging Services [address] [place] [address] Brain/Head without Contrast MR#: [id number] Acct: [id number] Name: NAVEEN AKINS Rep #: [id number] : 1940 M 78 From: El Malik MD PCP: Jack Olmedo MD Status: REG ER Study: Brain/Head without Contrast Date of Exam: 05/04/18 Exam# [id number] Ordering Dr: Genaro Galeano MD STUDY: CT BRAIN WITHOUT CONTRAST REASON FOR EXAM: Male, 78 years old. Left-sided facial droop RADIATION DOSAGE (If Supplied By Facility): CTDIvol = ( 44.99 ) mGy, DLP = ( 779.24 ) mGycm TECHNIQUE: Transaxial CT imaging of the brain was performed without administration of intravenous contrast material. Individualized dose optimization techniques were used for this CT. COMPARISON: None. FINDINGS: No evidence for shift of midline structures or mass effect, compression of the ventricles. Chronic small vessel disease. Chronic left basal ganglia lacunar infarct. Intracranial vascular calcifications. Mass in the posterior fossa. The calvarium is intact. Mucosal thickening of the ethmoid air cells and the maxillary sinuses as well as the right sphenoid sinus suggestive of sinusitis. Partial opacification of the mastoid air cells can be seen in the setting of mastoid effusion or mastoiditis. IMPRESSION: No evidence for acute intracranial hemorrhage, mass effect or acute large territory infarcts. Mild chronic small vessel disease. Chronic left basal ganglia Mucosal thickening of the ethmoid air cells and the maxillary sinuses as well as the right sphenoid sinus suggestive of sinusitis. Partial opacification of the mastoid air cells can be seen in the setting of mastoid effusion or mastoiditis N.B. : The above information has been verbally conveyed by El Malik to GENARO GALEANO on 05/04/2018 23:45:25 (ET). Electronically Signed: El Malik, at 23:47 EST Tel , Service support , CT/Brain/Head without Contrast CC: Jack Olmedo MD; Genaro Galeano MD Senior Major Gifts Officer: Signed BEDSIDE GLUCOSE Collected: 05/04/2018 Status: F Source: [place] 11:24 PM [facility] REPOSITORY TYPE CODE TESTS RESULT OUT OF REFERENCE UNITS RANGE LAB L501.080 70-110 mg/dL High BEDSIDE GLU 112 Result Comment: MANAGEMENT OF PATIENT CARE PER NURSING PROTOCOL Performed By: #### L501.080 #### [facility] Point of Care [address] [facility] [address] BEDSIDE GLUCOSE Collected: 05/04/2018 Status: F Source: [place] 6:36 AM [facility] REPOSITORY TYPE CODE TESTS RESULT OUT OF RANGE REFERENCE UNITS LAB L501.080 70-110 mg/dL Normal BEDSIDE GLU 100 Result Comment: MANAGEMENT OF PATIENT CARE PER NURSING PROTOCOL Performed By: #### L501.080 #### [facility] Point of Care [address] [facility] [place] [address] CBC W/DIFF, AUTOMATED Collected: 05/04/2018 Status: F Source: [place] 5:20 AM [facility] REPOSITORY TYPE CODE TESTS RESULT OUT OF RANGE REFERENCE UNITS LAB L100.1000 4.4-11.0 K/mm3 Normal WBC 4.4 LAB L100.1200 4.6-6.2 M/mm3 Low RBC 3.13 LAB L100.1300 13.0-16.5 g/dl Low HGB 9.3 LAB L100.1400 40-54 % Low HCT 28.7 LAB L100.1500 80-94 fL Normal MCV 91.7 LAB L100.1600 27.0-32.0 pg Normal MCH 29.7 LAB L100.1700 32-36 g/gl Normal MCHC 32.4 LAB L100.1810 11.6-14.6 % High RDW CV 14.8 LAB L100.1820 35.1-43.9 fl High RDW SD 48.1 LAB L100.1900 150-450 K/mm3 Normal PLT 217 LAB L100.2000 6.2-12.0 fl Normal MPV 9.6 LAB L100.2100 47-70 % Normal NEUT% 47.4 LAB L100.2200 19-41 % Normal LY% 32.9 LAB L100.2300 0-10 % High MONO% 10.2 LAB L100.2400 0-5 % High EO% 9.1 LAB L100.2500 0-1 % Normal BASO% 0.2 LAB L100.2550 0.0-0.9 % Normal IM GRAN % 0.200 Result Comment: IG% - Immature Granulocytes (promyelocytes, myelocytes and metamyelocytes) > 1% indicates that a LEFT SHIFT is Present. LAB L100.2620 2.0-7.7 X10 3/uL Normal Absolute Neut 2.1 LAB L100.2720 0.83-4.51 X10 3/ul Normal Absolute Lymph 1.45 Performed By: #### L100.0100 #### [facility] [address] [place] [address]. [place], [address] COMPREHENSIVE METABOLIC Collected: 05/04/2018 Status: F Source: [facility] 5:20 AM [facility] REPOSITORY TYPE CODE TESTS RESULT OUT OF RANGE REFERENCE UNITS LAB L501.0100 74-106 mg/dL Normal GLU 99 Result Comment: Please note revised GLUCOSE reference range effective 2017. LAB L501.1000 7-18 mg/dL High BUN 34 LAB L501.1100 0.70-1.30 mg/dL High CREAT,SERUM 1.47 Result Comment: The validity of the calculated GFR AND GFRAA in patients over 70 years has not been determined. Clinical correlation is essential. LAB L501.1110 >60 mL/min Low EST GFR 49 Result Comment: Non- GFR Calc LAB L501.1115 >60 mL/min Normal EST GFR - AA 60 Result Comment: GFR Calc LAB L501.1255 ml/min Normal Estimated CRCL 40.33 LAB L501.1300 10-20 RATIO High BUN/CRE 23.1 LAB L501.1500 6.4-8. g/dL Normal 2 T PROT 7.4 LAB L501.1800 3.2-5. g/dL Low 0 ALB 2.8 LAB L501.1950 2.2-4. g/dL High 2 GLOB 4.6 LAB L501.2000 0.9-2. RATIO Low 4 A/G 0.6 LAB L501.2200 8.5-10 mg/dL Normal .1 CA 9.6 LAB L501.4100 15-37 U/L Normal AST 17 LAB L501.4305 45-117 U/L Normal ALK P 114 LAB L501.4405 16-61 U/L Low ALT 13 LAB L501.4600 0.20-1 mg/dL Normal .00 T BILI 0.70 LAB L501.5300 136-14 mmol/L Normal 5 NA 136 LAB L501.5600 3.5-5. mmol/L Normal 1 K 4.1 LAB L501.5900 98-107 mmol/L Normal CL 104 LAB L501.6100 21.0-3 mmol/L Normal 2.0 CO2 26.0 LAB L501.6200 5-15 Normal GAP 6 Performed By: #### L500.4050 #### [facility] [address] [place], [place], [address] BEDSIDE GLUCOSE Collected: 05/03/2018 Status: F Source: [place] 7:35 AM [facility] REPOSITORY TYPE CODE TESTS RESULT OUT OF RANGE REFERENCE UNITS LAB L501.080 70-110 mg/dL Normal BEDSIDE GLU 103 Result Comment: Dr Hernandez Followed MANAGEMENT OF PATIENT CARE PER NURSING PROTOCOL Performed By: #### L501.080 #### [facility] Point of Care [address] [place] [address] CBC W/DIFF, AUTOMATED Collected: 05/03/2018 Status: F Source: [place] 5:20 AM [facility] REPOSITORY TYPE CODE TESTS RESULT OUT OF RANGE REFERENCE UNITS LAB L100.1000 4.4-11.0 K/mm3 Normal WBC 5.7 LAB L100.1200 4.6-6.2 M/mm3 Low RBC 3.40 LAB L100.1300 13.0-16.5 g/dl Low HGB 10.0 LAB L100.1400 40-54 % Low HCT 30.6 LAB L100.1500 80-94 fL Normal MCV 90.0 LAB L100.1600 27.0-32.0 pg Normal MCH 29.4 LAB L100.1700 32-36 g/gl Normal MCHC 32.7 LAB L100.1810 11.6-14.6 % High RDW CV 15.3 LAB L100.1820 35.1-43.9 fl High RDW SD 50.5 LAB L100.1900 150-450 K/mm3 Normal PLT 227 LAB L100.2000 6.2-12.0 fl Normal MPV 9.2 LAB L100.2100 47-70 % Normal NEUT% 47.3 LAB L100.2200 19-41 % Normal LY% 34.6 LAB L100.2300 0-10 % Normal MONO% 9.4 LAB L100.2400 0-5 % High EO% 8.4 LAB L100.2500 0-1 % Normal BASO% 0.3 LAB L100.2550 0.0-0.9 % Normal IM GRAN % 0.000 Result Comment: IG% - Immature Granulocytes (promyelocytes, myelocytes and metamyelocytes) > 1% indicates that a LEFT SHIFT is Present. LAB L100.2620 2.0-7.7 X10 3/uL Normal Absolute Neut 2.7 LAB L100.2720 0.83-4.51 X10 3/ul Normal Absolute Lymph 1.98 Performed By: #### L100.0100 #### [facility] [address] [place], [place], [address] BASIC METABOLIC Collected: 05/03/2018 Status: F Source: [place] PROFILE (BMP) 5:20 AM [facility] REPOSITORY TYPE CODE TESTS RESULT OUT OF RANGE REFERENCE UNITS LAB L501.0100 74-106 mg/dL Normal GLU 101 Result Comment: Fasting Glucose result from 100 to 125 mg/dL suggests IMPAIRED HOMEOSTASIS per A.D.A. criteria. Please note revised GLUCOSE reference range effective 2017. LAB L501.1000 7-18 mg/dL High BUN 40 LAB L501.1100 0.70-1.30 mg/dL High CREAT,SERUM 1.67 Result Comment: The validity of the calculated GFR AND GFRAA in patients over 70 years has not been determined. Clinical correlation is essential. LAB L501.1110 >60 mL/min Low EST GFR 43 Result Comment: Non- GFR Calc LAB L501.1115 >60 mL/min Low EST GFR - AA 51 Result Comment: GFR Calc LAB L501.1255 ml/min Normal Estimated CRCL 35.50 LAB L501.1300 10-20 RATIO High BUN/CRE 24.0 LAB L501.2200 8.5-10 mg/dL High .1 CA 10.4 LAB L501.5300 136-14 mmol/L Normal 5 NA 137 LAB L501.5600 3.5-5. mmol/L Normal 1 K 4.1 LAB L501.5900 98-107 mmol/L Normal CL 101 LAB L501.6100 21.0-3 mmol/L Normal 2.0 CO2 27.0 LAB L501.6200 5-15 Normal GAP 9 Performed By: #### L500.2500 #### [facility] [address] [place] [address]. [place], [place], [id number] BEDSIDE GLUCOSE Collected: 05/02/2018 Status: F Source: [place] 7:36 AM [facility] REPOSITORY TYPE CODE TESTS RESULT OUT OF RANGE REFERENCE UNITS LAB L501.080 70-110 mg/dL Normal BEDSIDE GLU 98 Result Comment: MANAGEMENT OF PATIENT CARE PER NURSING PROTOCOL Performed By: #### L501.080 #### [facility] Point of Care [address] [facility]. [place], [place] [id number] BEDSIDE GLUCOSE Collected: 05/01/2018 Status: F Source: [place] 6:32 AM [facility] REPOSITORY TYPE CODE TESTS RESULT OUT OF RANGE REFERENCE UNITS LAB L501.080 70-110 mg/dL Normal BEDSIDE GLU 96 Result Comment: MANAGEMENT OF PATIENT CARE PER NURSING PROTOCOL Performed By: #### L501.080 #### [facility] Point of Care [address] [place] [address] BEDSIDE GLUCOSE Collected: 04/30/2018 Status: F Source: [place] 6:37 AM [facility] REPOSITORY TYPE CODE TESTS RESULT OUT OF REFERENCE UNITS RANGE LAB L501.080 70-110 mg/dL High BEDSIDE GLU 114 Result Comment: MANAGEMENT OF PATIENT CARE PER NURSING PROTOCOL Performed By: #### L501.080 #### [facility] Point of Care [address] [place] [address] BEDSIDE GLUCOSE Collected: 04/29/2018 Status: F Source: [place] 6:52 AM [facility] REPOSITORY TYPE CODE TESTS RESULT OUT OF REFERENCE UNITS RANGE LAB L501.080 70-110 mg/dL High BEDSIDE GLU 117 Result Comment: MANAGEMENT OF PATIENT CARE PER NURSING PROTOCOL Performed By: #### L501.080 #### [facility] Point of Care [address] [place] [address] BEDSIDE GLUCOSE Collected: 04/28/2018 Status: F Source: [place] 7:43 AM [facility] REPOSITORY TYPE CODE TESTS RESULT OUT OF REFERENCE UNITS RANGE LAB L501.080 70-110 mg/dL High BEDSIDE GLU 116 Result Comment: MANAGEMENT OF PATIENT CARE PER NURSING PROTOCOL Performed By: #### L501.080 #### [facility] Point of Care [address] [place] [address] BEDSIDE GLUCOSE Collected: 04/27/2018 Status: F Source: [place] 6:31 AM [facility] REPOSITORY TYPE CODE TESTS RESULT OUT OF RANGE REFERENCE UNITS LAB L501.080 70-110 mg/dL Normal BEDSIDE GLU 100 Result Comment: MANAGEMENT OF PATIENT CARE PER NURSING PROTOCOL Performed By: #### L501.080 #### [facility] Point of Care [address] [place] [address] BEDSIDE GLUCOSE Collected: 04/26/2018 Status: F Source: [place] 2:13 PM [facility] REPOSITORY TYPE CODE TESTS RESULT OUT OF RANGE REFERENCE UNITS LAB L501.080 70-110 mg/dL Normal BEDSIDE GLU 98 Result Comment: MANAGEMENT OF PATIENT CARE PER NURSING PROTOCOL Performed By: #### L501.080 #### [facility] Point of Care [address] [place] [address] BEDSIDE GLUCOSE Collected: 04/26/2018 Status: F Source: [place] 6:30 AM [facility] REPOSITORY TYPE CODE TESTS RESULT OUT OF RANGE REFERENCE UNITS LAB L501.080 70-110 mg/dL Normal BEDSIDE GLU 104 Result Comment: MANAGEMENT OF PATIENT CARE PER NURSING PROTOCOL Performed By: #### L501.080 #### [facility] Point of Care [address] [place] [address] BASIC METABOLIC Collected: 04/26/2018 Status: F Source: [place] PROFILE (BMP) 5:15 AM [facility] REPOSITORY TYPE CODE TESTS RESULT OUT OF RANGE REFERENCE UNITS LAB L501.0100 74-106 mg/dL Normal GLU 93 Result Comment: Please note revised GLUCOSE reference range effective 2017. LAB L501.1000 7-18 mg/dL High BUN 24 LAB L501.1100 0.70-1.30 mg/dL Normal CREAT,SERUM 1.19 Result Comment: The validity of the calculated GFR AND GFRAA in patients over 70 years has not been determined. Clinical correlation is essential. LAB L501.1110 >60 mL/min Normal EST GFR 63 Result Comment: Non- GFR Calc LAB L501.1115 >60 mL/min Normal EST GFR - AA 76 Result Comment: GFR Calc LAB L501.1255 ml/min Normal Estimated CRCL 52.82 LAB L501.1300 10-20 RATIO High BUN/CRE 20.2 LAB L501.2200 8.5-10 mg/dL Normal .1 CA 9.6 LAB L501.5300 136-14 mmol/L Normal 5 NA 139 LAB L501.5600 3.5-5. mmol/L Normal 1 K 4.1 LAB L501.5900 98-107 mmol/L Normal CL 104 LAB L501.6100 21.0-3 mmol/L Normal 2.0 CO2 26.0 LAB L501.6200 5-15 Normal GAP 9 Performed By: #### L500.2500 #### [facility] [address] [place], [address] BEDSIDE GLUCOSE Collected: 04/25/2018 Status: F Source: [place] 6:25 AM [facility] REPOSITORY TYPE CODE TESTS RESULT OUT OF RANGE REFERENCE UNITS LAB L501.080 70-110 mg/dL Normal BEDSIDE GLU 109 Result Comment: MANAGEMENT OF PATIENT CARE PER NURSING PROTOCOL Performed By: #### L501.080 #### [facility] Point of Care [address] [place], [place] [id number] BEDSIDE GLUCOSE Collected: 04/24/2018 Status: F Source: [place] 6:40 AM [facility] REPOSITORY TYPE CODE TESTS RESULT OUT OF REFERENCE UNITS RANGE LAB L501.080 70-110 mg/dL High BEDSIDE GLU 134 Result Comment: MANAGEMENT OF PATIENT CARE PER NURSING PROTOCOL Performed By: #### L501.080 #### [facility] Point of Care [address] [place] [address] BEDSIDE GLUCOSE Collected: 04/22/2018 Status: F Source: [place] 6:44 AM [facility] REPOSITORY TYPE CODE TESTS RESULT OUT OF RANGE REFERENCE UNITS LAB L501.080 70-110 mg/dL Normal BEDSIDE GLU 105 Result Comment: MANAGEMENT OF PATIENT CARE PER NURSING PROTOCOL Performed By: #### L501.080 #### [facility] Point of Care [address] [place] [address] BEDSIDE GLUCOSE Collected: 04/21/2018 Status: F Source: [place] 6:25 AM [facility] REPOSITORY TYPE CODE TESTS RESULT OUT OF REFERENCE UNITS RANGE LAB L501.080 70-110 mg/dL High BEDSIDE GLU 111 Result Comment: MANAGEMENT OF PATIENT CARE PER NURSING PROTOCOL Performed By: #### L501.080 #### [facility] Point of Care [address] [place] [address] BEDSIDE GLUCOSE Collected: 04/20/2018 Status: F Source: [place] 6:24 AM [facility] REPOSITORY TYPE CODE TESTS RESULT OUT OF REFERENCE UNITS RANGE LAB L501.080 70-110 mg/dL High BEDSIDE GLU 121 Result Comment: MANAGEMENT OF PATIENT CARE PER NURSING PROTOCOL Performed By: #### L501.080 #### [facility] Point of Care [address] [place] [address] SWALLOWING FUNCTION Observed: 04/20/2018 Status: F Source: [place] W/VIDEO 12:00 AM [facility] REPOSITORY [facility] Imaging Services [address] [place] [address] Swallowing Function w/Video MR#: [id number] Acct: [id number] Name: NAVEEN AKINS Rep #: [id number] : 1940 M 78 From: Bertrand Steel MD PCP: Jack Olmedo MD Status: ADM IN Study: Swallowing Function w/Video Date of Exam: 04/20/18 Exam# [id number] Ordering Dr: Jh Gustafson MD STUDY: SWALLOWING STUDY REASON FOR EXAM: Male, 78 years old. Dysphasia. History of stroke. TECHNIQUE: The examination was performed with Speech Pathology in attendance. Under fluoroscopic observation, the patient ingested thin barium, thick barium, barium pudding, and barium coated cracker. FLUOROSCOPY TIME: 2:27 minutes/seconds. 2258 fluoroscopic images were obtained. RADIOLOGIST INVOLVEMENT: Radiologist was present and providing direct supervision. COMPARISON: None. FINDINGS: The following was observed during swallowing of the various mixtures of barium: Thin Barium: Transient penetration to the level of the vocal cords with ingestion of thin fluids. This improves with the chin tuck maneuver. Thick Barium: There was no evidence of aspiration or laryngeal penetration. Barium Pudding: There was no evidence of aspiration or laryngeal penetration. Barium Coated Cracker: There was no evidence of aspiration or laryngeal penetration. RAD/Swallowing Function w/Video IMPRESSION: Transient penetration to the level of the vocal cords with ingestion of thin liquids. This improves with the chin tuck maneuver. The swallow study findings were discussed with the patient by the speech pathologist at the conclusion of the examination. Please see speech pathology report for more information and recommendations. Electronically Signed: Bertrand Steel MD at 13:52 EST Tel [phone], Service support , CC: Jack Olmedo MD; Jh Gustafson MD Senior Major Gifts Officer: Signed BEDSIDE GLUCOSE Collected: 04/19/2018 Status: F Source: [place] 6:39 AM [facility] REPOSITORY TYPE CODE TESTS RESULT OUT OF RANGE REFERENCE UNITS LAB L501.080 70-110 mg/dL Normal BEDSIDE GLU 99 Result Comment: MANAGEMENT OF PATIENT CARE PER NURSING PROTOCOL Performed By: #### L501.080 #### [facility] [place] [address] CBC W/DIFF, AUTOMATED Collected: 04/19/2018 Status: F Source: [place] 5:25 AM [facility] REPOSITORY TYPE CODE TESTS RESULT OUT OF RANGE REFERENCE UNITS LAB L100.1000 4.4-11.0 K/mm3 Normal WBC 4.5 LAB L100.1200 4.6-6.2 M/mm3 Low RBC 3.67 LAB L100.1300 13.0-16.5 g/dl Low HGB 10.8 LAB L100.1400 40-54 % Low HCT 33.5 LAB L100.1500 80-94 fL Normal MCV 91.3 LAB L100.1600 27.0-32.0 pg Normal MCH 29.4 LAB L100.1700 32-36 g/gl Normal MCHC 32.2 LAB L100.1810 11.6-14.6 % High RDW CV 16.1 LAB L100.1820 35.1-43.9 fl High RDW SD 52.0 LAB L100.1900 150-450 K/mm3 Normal PLT 194 LAB L100.2000 6.2-12.0 fl Normal MPV 9.6 LAB L100.2100 47-70 % Normal NEUT% 49.3 LAB L100.2200 19-41 % Normal LY% 33.6 LAB L100.2300 0-10 % Normal MONO% 8.9 LAB L100.2400 0-5 % High EO% 7.3 LAB L100.2500 0-1 % Normal BASO% 0.7 LAB L100.2550 0.0-0.9 % Normal IM GRAN % 0.200 Result Comment: IG% - Immature Granulocytes (promyelocytes, myelocytes and metamyelocytes) > 1% indicates that a LEFT SHIFT is Present. LAB L100.2620 2.0-7.7 X10 3/uL Normal Absolute Neut 2.2 LAB L100.2720 0.83-4.51 X10 3/ul Normal Absolute Lymph 1.51 Performed By: #### L100.0100 #### [facility] [address] [place], [place], [id number] BASIC METABOLIC Collected: 04/19/2018 Status: F Source: [place] PROFILE ([facility]) 5:25 AM [facility] REPOSITORY TYPE CODE TESTS RESULT OUT OF RANGE REFERENCE UNITS LAB L501.0100 74-106 mg/dL Normal GLU 87 Result Comment: Please note revised GLUCOSE reference range effective 2017. LAB L501.1000 7-18 mg/dL High BUN 26 LAB L501.1100 0.70-1.30 mg/dL High CREAT,SERUM 1.34 Result Comment: The validity of the calculated GFR AND GFRAA in patients over 70 years has not been determined. Clinical correlation is essential. LAB L501.1110 >60 mL/min Low EST GFR 55 Result Comment: Non- GFR Calc LAB L501.1115 >60 mL/min Normal EST GFR - AA 66 Result Comment: GFR Calc LAB L501.1255 ml/min Normal Estimated CRCL 46.91 LAB L501.1300 10-20 RATIO Normal BUN/CRE 19.4 LAB L501.2200 8.5-10 mg/dL Normal .1 CA 10.0 LAB L501.5300 136-14 mmol/L Normal 5 NA 140 LAB L501.5600 3.5-5. mmol/L Normal 1 K 4.1 LAB L501.5900 98-107 mmol/L Normal CL 104 LAB L501.6100 21.0-3 mmol/L Normal 2.0 CO2 26.0 LAB L501.6200 5-15 Normal GAP 10 Performed By: #### L500.2500 #### [facility] [address] [place], [place], [id number] URINALYSIS, COMPLETE Collected: 04/18/2018 Status: F Source: [place] 5:30 PM [facility] REPOSITORY Order Comment: Order Date: 04/18/18 How was Urine Obtained? BLADDER TAP TYPE CODE TESTS RESULT OUT OF RANGE REFERENCE UNITS LAB L400.3000 Yellow COLOR Normal Yellow LAB L400.3050 Clear Normal CLARITY Clear LAB L400.3200 Normal mg/dl Normal GLUCOSE, UR Normal LAB L400.3300 Negative mg/dL Normal BILIRUBIN URINE Negative LAB L400.3400 Negative mg/dl Normal KETONE UR Negative LAB L400.3465 1.002-1.030 Normal SP.GR. DIPSTX 1.010 LAB L400.3550 5.0 - 8.0 pH UR Normal 7.0 LAB L400.3600 Negative mg/dl PROT Normal DIPSTX Negative LAB L400.3700 Normal mg/dl Normal UROBILI Normal LAB L400.3750 Negative Normal NITRITE UR Negative LAB L400.3780 Negative /ul Normal OCCULT BLOOD-UR Negative LAB L400.3800 Negative /ul LEUK Normal ESTERASE Negative LAB L400.4050 0-5 /hpf WBC 0 Normal SEEN LAB L400.4100 0-5 /hpf 0 Normal RBC-UA SEEN LAB L400.4150 0-5 /hpf SQUAM 0 Normal EPI SEEN LAB L400.4300 None Seen /hpf 0 Normal BACTERIA SEEN LAB L400.4350 <or=2+ /hpf 0 Normal MUCUS, URINE SEEN Performed By: #### L400.0001 #### [facility] [address] [place], [place], [id number] BEDSIDE GLUCOSE Collected: 04/18/2018 Status: F Source: [place] 3:47 PM [facility] REPOSITORY TYPE CODE TESTS RESULT OUT OF REFERENCE UNITS RANGE LAB L501.080 70-110 mg/dL High BEDSIDE GLU 112 Result Comment: MANAGEMENT OF PATIENT CARE PER NURSING PROTOCOL Performed By: #### L501.080 #### [facility] Point of Care [address] [facility] [place], [place] [address] CBC W/DIFF, AUTOMATED Collected: 04/18/2018 Status: F Source: [place] 12:30 PM [facility] REPOSITORY TYPE CODE TESTS RESULT OUT OF RANGE REFERENCE UNITS LAB L100.1000 4.4-11.0 K/mm3 Normal WBC 4.4 LAB L100.1200 4.6-6.2 M/mm3 Low RBC 3.24 LAB L100.1300 13.0-16.5 g/dl Low HGB 9.6 LAB L100.1400 40-54 % Low HCT 29.4 LAB L100.1500 80-94 fL Normal MCV 90.7 LAB L100.1600 27.0-32.0 pg Normal MCH 29.6 LAB L100.1700 32-36 g/gl Normal MCHC 32.7 LAB L100.1810 11.6-14.6 % High RDW CV 16.1 LAB L100.1820 35.1-43.9 fl High RDW SD 54.3 LAB L100.1900 150-450 K/mm3 Normal PLT 171 LAB L100.2000 6.2-12.0 fl Normal MPV 8.8 LAB L100.2100 47-70 % Normal NEUT% 47.4 LAB L100.2200 19-41 % Normal LY% 36.5 LAB L100.2300 0-10 % Normal MONO% 7.8 LAB L100.2400 0-5 % High EO% 8.3 LAB L100.2500 0-1 % Normal BASO% 0.0 LAB L100.2550 0.0-0.9 % Normal IM GRAN % 0.000 Result Comment: IG% - Immature Granulocytes (promyelocytes, myelocytes and metamyelocytes) > 1% indicates that a LEFT SHIFT is Present. LAB L100.2620 2.0-7.7 X10 3/uL Normal Absolute Neut 2.1 LAB L100.2720 0.83-4.51 X10 3/ul Normal Absolute Lymph 1.59 Performed By: #### L100.0100, L500.4050 #### [facility] [address] [place], [address] COMPREHENSIVE METABOLIC Collected: 04/18/2018 Status: F Source: [facility] 12:30 PM [facility] REPOSITORY TYPE CODE TESTS RESULT OUT OF RANGE REFERENCE UNITS LAB L501.0100 74-106 mg/dL Normal GLU 102 Result Comment: Fasting Glucose result from 100 to 125 mg/dL suggests IMPAIRED HOMEOSTASIS per A.D.A. criteria. Please note revised GLUCOSE reference range effective 2017. LAB L501.1000 7-18 mg/dL High BUN 26 LAB L501.1100 0.70-1.30 mg/dL Normal CREAT,SERUM 1.22 Result Comment: The validity of the calculated GFR AND GFRAA in patients over 70 years has not been determined. Clinical correlation is essential. LAB L501.1110 >60 mL/min Normal EST GFR 61 Result Comment: Non- GFR Calc LAB L501.1115 >60 mL/min Normal EST GFR - AA 74 Result Comment: GFR Calc LAB L501.1255 ml/min Normal Estimated CRCL 49.98 LAB L501.1300 10-20 RATIO High BUN/CRE 21.3 LAB L501.1500 6.4-8. g/dL Normal 2 T PROT 7.2 LAB L501.1800 3.2-5. g/dL Low 0 ALB 2.6 LAB L501.1950 2.2-4. g/dL High 2 GLOB 4.6 LAB L501.2000 0.9-2. RATIO Low 4 A/G 0.6 LAB L501.2200 8.5-10 mg/dL Normal .1 CA 9.4 LAB L501.4100 15-37 U/L Normal AST 19 LAB L501.4305 45-117 U/L High ALK P 118 LAB L501.4405 16-61 U/L Low ALT 14 LAB L501.4600 0.20-1 mg/dL Normal .00 T BILI 0.80 LAB L501.5300 136-14 mmol/L Normal 5 NA 137 LAB L501.5600 3.5-5. mmol/L Normal 1 K 3.9 LAB L501.5900 98-107 mmol/L Normal CL 103 LAB L501.6100 21.0-3 mmol/L Normal 2.0 CO2 26.0 LAB L501.6200 5-15 Normal GAP 8 Performed By: #### L100.0100, L500.4050 #### [facility] [address] [place], [address] CHEST 1 VIEW Observed: 04/18/2018 Status: F Source: [place] (PORTABLE) 12:07 PM [facility] REPOSITORY [facility] Imaging Services [address] [place] [address] Chest 1 View (Portable) MR#: [id number] Acct: [id number] Name: NAVEEN AKINS Rep #: [id number] : 1940 M 78 From: Bertrand Steel MD PCP: Jack Olmedo MD Status: ADM IN Study: Chest 1 View (Portable) Date of Exam: 04/18/18 Exam# [id number] Ordering Dr: Jh Gustafson MD STUDY: X-RAY CHEST REASON FOR EXAM: Male, 78 years old. History of aspiration pneumonia. Recent tracheostomy reversal. TECHNIQUE: Single AP portable view of the chest. COMPARISON: Comparison is made with prior examination dated April 11, 2018. FINDINGS: The tracheostomy has been removed. The lungs are clear and expanded. There is no demonstrated pleural abnormality. Normal size heart. Normal mediastinum and maximilian. Normal visualized pulmonary arteries. There is atherosclerotic calcification of the aortic arch with tortuosity. There are diffuse degenerative changes of the visualized thoracic spine. There is degenerative osteoarthritis of the bilateral shoulders. There is no demonstrated abnormality of the visualized soft tissue structures of the upper abdomen. RAD/Chest 1 View (Portable) IMPRESSION: Status post reversal of the tracheostomy. No acute abnormality seen. Electronically Signed: Bertrand Steel MD at 15:25 EST Tel [phone], Service support , CC: Jack Olmedo MD; Jh Gustafson MD Senior Major Gifts Officer: Signed ABDOMEN SINGLE VIEW Observed: 04/18/2018 Status: F Source: [place] (PORTABLE) 12:07 PM [facility] REPOSITORY [facility] Imaging Services [address] [place] [address] Abdomen Single View (Portable) MR#: [id number] Acct: [id number] Name: NAVEEN AKINS Rep #: [id number] : 1940 M 78 From: Bertrand Steel MD PCP: Jack Olmedo MD Status: ADM IN Study: Abdomen Single View (Portable) Date of Exam: 04/18/18 Exam# [id number] Ordering Dr: Jh Gustafson MD STUDY: X-RAY - ABDOMEN/PELVIS REASON FOR EXAM: Male, 78 years old. Recent abdominal aortic aneurysm repair. PEG tube placement. TECHNIQUE: AP supine and upright views of the abdomen and pelvis. COMPARISON: Comparison is made with prior study dated April 11, 2018. FINDINGS: A PEG tube is seen in the left upper quadrant presumably within the stomach. There is an unremarkable bowel gas pattern. Surgical clips are seen in the mid abdomen in keeping with the recent abdominal aortic aneurysm repair. Normal soft tissue structures. There are degenerative changes of the visualized lumbar spine. 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 RAD/Abdomen Single View (Portable) IMPRESSION: Nonspecific bowel gas pattern. A PEG tube is seen in the left upper quadrant. Electronically Signed: Bertrand Steel MD at 15:27 EST Tel [phone], Service support , CC: Jack Olmedo MD; Jh Gustafson MD Senior Major Gifts Officer: Signed COMPREHENSIVE METABOLIC Collected: 04/15/2018 Status: F Source: [place] 2:11 PM [facility] REPOSITORY TYPE CODE TESTS RESULT OUT OF RANGE REFERENCE UNITS LAB L501.0100 74-106 mg/dL High GLU 111 Result Comment: Fasting Glucose result from 100 to 125 mg/dL suggests IMPAIRED HOMEOSTASIS per A.D.A. criteria. Please note revised GLUCOSE reference range effective 2017. LAB L501.1000 7-18 mg/dL High BUN 27 LAB L501.1100 0.70-1.30 mg/dL Normal CREAT,SERUM 1.26 Result Comment: The validity of the calculated GFR AND GFRAA in patients over 70 years has not been determined. Clinical correlation is essential. LAB L501.1110 >60 mL/min Low EST GFR 59 Result Comment: Non- GFR Calc LAB L501.1115 >60 mL/min Normal EST GFR - AA 71 Result Comment: GFR Calc LAB L501.1255 ml/min Normal Estimated CRCL 48.40 LAB L501.1300 10-20 RATIO High BUN/CRE 21.4 LAB L501.1500 6.4-8. g/dL Normal 2 T PROT 7.1 LAB L501.1800 3.2-5. g/dL Low 0 ALB 2.5 LAB L501.1950 2.2-4. g/dL High 2 GLOB 4.6 LAB L501.2000 0.9-2. RATIO Low 4 A/G 0.5 LAB L501.2200 8.5-10 mg/dL Normal .1 CA 9.6 LAB L501.4100 15-37 U/L Normal AST 17 LAB L501.4305 45-117 U/L High ALK P 118 LAB L501.4405 16-61 U/L Low ALT 15 LAB L501.4600 0.20-1 mg/dL Normal .00 T BILI 0.60 LAB L501.5300 136-14 mmol/L Normal 5 NA 140 LAB L501.5600 3.5-5. mmol/L Normal 1 K 4.0 LAB L501.5900 98-107 mmol/L Normal CL 106 LAB L501.6100 21.0-3 mmol/L Normal 2.0 CO2 28.0 LAB L501.6200 5-15 Normal GAP 6 Performed By: #### L500.4050 #### [facility] [address] [place], [address] CBC W/DIFF, AUTOMATED Collected: 04/15/2018 Status: F Source: [place] 2:11 PM [facility] REPOS[facility]ORY TYPE CODE TESTS RESULT OUT OF RANGE REFERENCE UNITS LAB L100.1000 4.4-11.0 K/mm3 Normal WBC 4.5 LAB L100.1200 4.6-6.2 M/mm3 Low RBC 3.25 LAB L100.1300 13.0-16.5 g/dl Low HGB 9.8 LAB L100.1400 40-54 % Low HCT 30.2 LAB L100.1500 80-94 fL Normal MCV 92.9 LAB L100.1600 27.0-32.0 pg Normal MCH 30.2 LAB L100.1700 32-36 g/gl Normal MCHC 32.5 LAB L100.1810 11.6-14.6 % High RDW CV 16.4 LAB L100.1820 35.1-43.9 fl High RDW SD 53.6 LAB L100.1900 150-450 K/mm3 Normal PLT 183 LAB L100.2000 6.2-12.0 fl Normal MPV 9.2 LAB L100.2100 47-70 % Normal NEUT% 49.8 LAB L100.2200 19-41 % Normal LY% 36.4 LAB L100.2300 0-10 % Normal MONO% 6.9 LAB L100.2400 0-5 % High EO% 6.3 LAB L100.2500 0-1 % Normal BASO% 0.4 LAB L100.2550 0.0-0.9 % Normal IM GRAN % 0.200 Result Comment: IG% - Immature Granulocytes (promyelocytes, myelocytes and metamyelocytes) > 1% indicates that a LEFT SHIFT is Present. LAB L100.2620 2.0-7.7 X10 3/uL Normal Absolute Neut 2.2 LAB L100.2720 0.83-4.51 X10 3/ul Normal Absolute Lymph 1.63 Performed By: #### L100.0100 #### [facility] [address] [place], [place], [address] PARTIAL THROMBOPLAST Collected: 04/15/2018 Status: F Source: [place] TIME 2:11 PM [facility] REPOSITORY TYPE CODE TESTS RESULT OUT OF REFERENCE UNITS RANGE LAB L300.4310 24.1-36.2 Seconds High PTT 41.1 Performed By: #### L300.4310 #### [facility] [address] [place], [place], [address] URINALYSIS, COMPLETE Collected: 04/12/2018 Status: F Source: [place] 4:45 AM [facility] REPOS[facility]ORY Order Comment: Order Date: 04/12/18 Comments: Straight Cath How was Urine Obtained? BLADDER TAP TYPE CODE TESTS RESULT OUT OF RANGE REFERENCE UNITS LAB L400.3000 Yellow COLOR Normal Yellow LAB L400.3050 Clear Normal CLARITY Clear LAB L400.3200 Normal mg/dl Normal GLUCOSE, UR Normal LAB L400.3300 Negative mg/dL Normal BILIRUBIN URINE Negative LAB L400.3400 Negative mg/dl Normal KETONE UR Negative LAB L400.3465 1.002-1.030 Normal SP.GR. DIPSTX 1.015 LAB L400.3550 5.0 - 8.0 pH UR Normal 7.0 LAB L400.3600 Negative mg/dl High PROT 15 DIPSTX LAB L400.3700 Normal mg/dl Normal UROBILI Normal LAB L400.3750 Negative Normal NITRITE UR Negative LAB L400.3780 Negative /ul Normal OCCULT BLOOD-UR Negative LAB L400.3800 Negative /ul LEUK Normal ESTERASE Negative LAB L400.4050 0-5 /hpf WBC 0 Normal SEEN LAB L400.4100 0-5 /hpf 0 Normal RBC-UA SEEN LAB L400.4150 0-5 /hpf SQUAM 0 Normal EPI SEEN LAB L400.4300 None Seen /hpf 0 Normal BACTERIA SEEN LAB L400.4350 <or=2+ /hpf 0 Normal MUCUS, URINE SEEN Performed By: #### L100.0100, L400.0001 #### [facility] [address] [place], [place], [address] CBC W/DIFF, AUTOMATED Collected: 04/11/2018 Status: F Source: [place] 10:18 PM [facility] REPOSITORY TYPE CODE TESTS RESULT OUT OF RANGE REFERENCE UNITS LAB L100.1000 4.4-11.0 K/mm3 Normal WBC 4.9 LAB L100.1200 4.6-6.2 M/mm3 Low RBC 3.30 LAB L100.1300 13.0-16.5 g/dl Low HGB 9.9 LAB L100.1400 40-54 % Low HCT 30.6 LAB L100.1500 80-94 fL Normal MCV 92.7 LAB L100.1600 27.0-32.0 pg Normal MCH 30.0 LAB L100.1700 32-36 g/gl Normal MCHC 32.4 LAB L100.1810 11.6-14.6 % High RDW CV 16.6 LAB L100.1820 35.1-43.9 fl High RDW SD 54.4 LAB L100.1900 150-450 K/mm3 Normal PLT 188 LAB L100.2000 6.2-12.0 fl Normal MPV 9.2 LAB L100.2100 47-70 % Normal NEUT% 54.2 LAB L100.2200 19-41 % Normal LY% 30.9 LAB L100.2300 0-10 % Normal MONO% 8.6 LAB L100.2400 0-5 % High EO% 5.9 LAB L100.2500 0-1 % Normal BASO% 0.2 LAB L100.2550 0.0-0.9 % Normal IM GRAN % 0.200 Result Comment: IG% - Immature Granulocytes (promyelocytes, myelocytes and metamyelocytes) > 1% indicates that a LEFT SHIFT is Present. LAB L100.2620 2.0-7.7 X10 3/uL Normal Absolute Neut 2.7 LAB L100.2720 0.83-4.51 X10 3/ul Normal Absolute Lymph 1.51 Performed By: #### L100.0100, L400.0001 #### [facility] [address] [place], [address] BASIC METABOLIC Collected: 04/11/2018 Status: F Source: [place] PROFILE ([facility]) 10:18 PM [facility] REPOSITORY TYPE CODE TESTS RESULT OUT OF RANGE REFERENCE UNITS LAB L501.0100 74-106 mg/dL Normal GLU 103 Result Comment: Fasting Glucose result from 100 to 125 mg/dL suggests IMPAIRED HOMEOSTASIS per A.D.A. criteria. Please note revised GLUCOSE reference range effective 2017. LAB L501.1000 7-18 mg/dL High BUN 29 LAB L501.1100 0.70-1.30 mg/dL High CREAT,SERUM 1.48 Result Comment: The validity of the calculated GFR AND GFRAA in patients over 70 years has not been determined. Clinical correlation is essential. LAB L501.1110 >60 mL/min Low EST GFR 49 Result Comment: Non- GFR Calc LAB L501.1115 >60 mL/min Low EST GFR - AA 59 Result Comment: GFR Calc LAB L501.1255 ml/min Normal Estimated CRCL 41.20 LAB L501.1300 10-20 RATIO Normal BUN/CRE 19.6 LAB L501.2200 8.5-10 mg/dL Normal .1 CA 9.9 LAB L501.5300 136-14 mmol/L Normal 5 NA 142 LAB L501.5600 3.5-5. mmol/L Normal 1 K 3.8 LAB L501.5900 98-107 mmol/L Normal CL 107 LAB L501.6100 21.0-3 mmol/L Normal 2.0 CO2 28.0 LAB L501.6200 5-15 Normal GAP 7 Performed By: #### L500.2500 #### [facility] [address] [facility] [place], [address] CHEST PA AND LATERAL Observed: 04/11/2018 Status: F Source: [place] 9:54 PM [facility] REPOSITORY [facility] Imaging Services [address] [place] [address] Chest PA and Lateral MR#: [id number] Acct: [id number] Name: MABLENAVEEN Adrian Rep #: [id number] : 1940 78 From: Win Ramos MD PCP: Jack Olmedo MD Status: ADM IN Study: Chest PA and Lateral Date of Exam: 04/11/18 Exam# [id number] Ordering Dr: Jh Gustafson MD STUDY: X-RAY CHEST REASON FOR EXAM: Male, 78 years old. Unresponsive episodes TECHNIQUE: AP and lateral views of the chest. COMPARISON: Previous study of April 09, 2018 FINDINGS: A tracheostomy is present appearing in adequate position. The lungs are clear and expanded. There is no demonstrated pleural abnormality. Normal size heart. Normal mediastinum and maximilian. Normal visualized pulmonary arteries. There are calcified plaques of the aortic arch. Normal visualized thoracic spine. An intramedullary jerry is seen in the visualized left humerus. There is no demonstrated abnormality of the visualized soft tissue structures of the upper abdomen. RAD/Chest PA and Lateral IMPRESSION: Tracheostomy present appearing in adequate position. Calcified plaques of the aortic arch. Intramedullary jerry seen in the proximal left humerus. No acute cardiopulmonary disease process is seen. Electronically Signed: Win Ramos MD at 22:18 EST , Service support , CC: Jack Olmedo MD; Jh Gustafson MD Senior Major Gifts Officer: Signed ABDOMEN SINGLE VIEW Observed: 04/11/2018 Status: F Source: [place] 9:54 PM [facility] REPOSITORY [facility] Imaging Services [address] [place] [address] Abdomen Single View MR#: [id number] Acct: [id number] Name: NAVEEN AKINS Rep #: [id number] : 1940 M 78 From: Win Ramos MD PCP: Jack Olmedo MD Status: ADM IN Study: Abdomen Single View Date of Exam: 04/11/18 Exam# [id number] Ordering Dr: Jh Gustafson MD STUDY: X-RAY - ABDOMEN/PELVIS REASON FOR EXAM: Male, 78 years old. Unresponsive episodes TECHNIQUE: Two AP supine views of the abdomen and pelvis. COMPARISON: Previous study of 03/31/2018 FINDINGS: Normal visualized lung bases. There is an unremarkable bowel gas pattern. There is no demonstrated free abdominal air. A PEG tube is noted. There are numerous surgical clips in the left abdomen and pelvis. There are degenerative changes of the lumbar spine with a mild lumbar levoscoliosis. RAD/Abdomen Single View IMPRESSION: There is no evidence of ileus or obstruction. A PEG tube is noted. There are numerous surgical clips in the left abdomen and pelvis. Electronically Signed: Win Ramos MD at 22:35 EST , Service support , CC: Jack Olmedo MD; Jh Gustafson MD Senior Major Gifts Officer: Signed WRIST 2 VIEWS Observed: 04/11/2018 Status: F Source: [place] 11:25 AM [facility] REPOSITORY [facility] [place] [address] Wrist 2 Views MR#: [id number] Acct: [id number] Name: NAVEEN AKINS Rep #: [id number] : 1940 M 78 From: Wni Ramos MD PCP: Jack Olmedo MD Status: ADM IN Study: Wrist 2 Views Date of Exam: 04/11/18 Exam# [id number] Ordering Dr: Jh Gustafson MD STUDY: X-RAY - LEFT WRIST REASON FOR EXAM: Male, 78 years old. Left wrist pain x2 days TECHNIQUE: 2 view(s) of the wrist were obtained. COMPARISON: None. FINDINGS: Normal visualized distal radius and ulna. Normal radiocarpal articulation. Normal distal radioulnar articulation. Normal carpal bones. There are degenerative changes of the greater multangular navicular joint. Normal carpometacarpal articulation of the thumb. Normal second through fifth carpometacarpal articulations. Normal visualized metacarpal bones. There is a small soft tissue calcification anterior to the distal radial metaphysis. RAD/Wrist 2 Views IMPRESSION: Degenerative changes of the greater multangular navicular joint. Electronically Signed: Win Ramos MD at 15:47 EST , Service support , CC: Jack Olmedo MD; Jh Gustafson MD Senior Major Gifts Officer: Signed URINALYSIS, COMPLETE Collected: 04/09/2018 Status: F Source: [place] 4:40 PM [facility] REPOSITORY Order Comment: How was Urine Obtained? CLEAN CATCH TYPE CODE TESTS RESULT OUT OF RANGE REFERENCE UNITS LAB L400.3000 Yellow COLOR Normal Yellow LAB L400.3050 Clear Normal CLARITY Clear LAB L400.3200 Normal mg/dl Normal GLUCOSE, UR Normal LAB L400.3300 Negative mg/dL Normal BILIRUBIN URINE Negative LAB L400.3400 Negative mg/dl Normal KETONE UR Negative LAB L400.3465 1.002-1.030 Normal SP.GR. DIPSTX 1.015 LAB L400.3550 5.0 - 8.0 pH UR Normal 6.5 LAB L400.3600 Negative mg/dl High PROT 15 DIPSTX LAB L400.3700 Normal mg/dl Normal UROBILI Normal LAB L400.3750 Negative Normal NITRITE UR Negative LAB L400.3780 Negative /ul High 25 OCCULT BLOOD-UR LAB L400.3800 Negative /ul High LEUK 25 ESTERASE LAB L400.4050 0-5 /hpf WBC Normal 0-5 SEEN LAB L400.4100 0-5 /hpf Normal RBC-UA 0-5 SEEN LAB L400.4150 0-5 /hpf SQUAM 0 Normal EPI SEEN LAB L400.4300 None Seen /hpf 0 Normal BACTERIA SEEN LAB L400.4350 <or=2+ /hpf 0 Normal MUCUS, URINE SEEN LAB L400.4700 <or=2+ /hpf CA OX 1+ Normal CRYSTAL Performed By: #### L400.0001 #### [facility] [address] [place], [address] BASIC METABOLIC Collected: 04/09/2018 Status: F Source: [place] PROFILE ([facility]) 6:20 AM [facility] REPOSITORY TYPE CODE TESTS RESULT OUT OF RANGE REFERENCE UNITS LAB L501.0100 74-106 mg/dL Normal GLU 104 Result Comment: Fasting Glucose result from 100 to 125 mg/dL suggests IMPAIRED HOMEOSTASIS per A.D.A. criteria. Please note revised GLUCOSE reference range effective 2017. LAB L501.1000 7-18 mg/dL High BUN 30 LAB L501.1100 0.70-1.30 mg/dL High CREAT,SERUM 1.58 Result Comment: The validity of the calculated GFR AND GFRAA in patients over 70 years has not been determined. Clinical correlation is essential. LAB L501.1110 >60 mL/min Low EST GFR 45 Result Comment: Non- GFR Calc LAB L501.1115 >60 mL/min Low EST GFR - AA 55 Result Comment: GFR Calc LAB L501.1255 ml/min Normal Estimated CRCL 39.61 LAB L501.1300 10-20 RATIO Normal BUN/CRE 19.0 LAB L501.2200 8.5-10 mg/dL Normal .1 CA 10.0 LAB L501.5300 136-14 mmol/L Normal 5 NA 140 LAB L501.5600 3.5-5. mmol/L Normal 1 K 3.8 LAB L501.5900 98-107 mmol/L Normal CL 106 LAB L501.6100 21.0-3 mmol/L Normal 2.0 CO2 28.0 LAB L501.6200 5-15 Normal GAP 6 Performed By: #### L500.2500 #### [facility] [address] [facility] [place], [address] CHEST 1 VIEW Observed: 04/09/2018 Status: F Source: [place] (PORTABLE) 12:15 AM [facility] REPOSITORY [facility] Imaging Services [address] [place] [address] Chest 1 View (Portable) MR#: [id number] Acct: [id number] Name: NAVEEN AKINS Rep #: [id number] : 1940 M 78 From: Kristie Rubio MD PCP: Jack Olmedo MD Status: ADM IN Study: Chest 1 View (Portable) Date of Exam: 04/09/18 Exam# [id number] Ordering Dr: Jh Gustafson MD HISTORY: Cough. Follow-up infiltrates Comparison 04/03/2018 Findings: Persistent bibasilar small infiltrates or atelectasis. Mild thickening of the right minor fissure. An approximately 8 mm nodule suggested within the right upper lobe above the minor fissure. Normal heart size. The pulmonary vascularity shows no overt congestion. No significant pleural effusion. Atherosclerotic thoracic aorta. Tracheostomy tube in place. RAD/Chest 1 View (Portable) IMPRESSION: 1. Bibasilar persistent small infiltrates or atelectasis. Recommend continued follow-up. 2. Right upper lobe nodule suggested. Consider further correlation with CT chest. 3. Tracheostomy tube in place. at 0559 Reported and signed by: Kristie Rubio MD Electronically Signed: Kristie Rubio, at 5:57 EST Tel , Service support , CC: Jack Olmedo MD; Jh Gustafson MD Senior Major Gifts Officer: Signed CBC W/DIFF, AUTOMATED Collected: 04/08/2018 Status: F Source: [place] 4:57 PM [facility] REPOSITORY TYPE CODE TESTS RESULT OUT OF RANGE REFERENCE UNITS LAB L100.1000 4.4-11.0 K/mm3 Low WBC 4.3 LAB L100.1200 4.6-6.2 M/mm3 Low RBC 3.45 LAB L100.1300 13.0-16.5 g/dl Low HGB 10.0 LAB L100.1400 40-54 % Low HCT 32.0 LAB L100.1500 80-94 fL Normal MCV 92.8 LAB L100.1600 27.0-32.0 pg Normal MCH 29.0 LAB L100.1700 32-36 g/gl Low MCHC 31.3 LAB L100.1810 11.6-14.6 % High RDW CV 16.9 LAB L100.1820 35.1-43.9 fl High RDW SD 57.5 LAB L100.1900 150-450 K/mm3 Normal PLT 189 LAB L100.2000 6.2-12.0 fl Normal MPV 8.9 LAB L100.2100 47-70 % Normal NEUT% 47.2 LAB L100.2200 19-41 % Normal LY% 35.5 LAB L100.2300 0-10 % Normal MONO% 8.3 LAB L100.2400 0-5 % High EO% 8.5 LAB L100.2500 0-1 % Normal BASO% 0.5 LAB L100.2550 0.0-0.9 % Normal IM GRAN % 0.000 Result Comment: IG% - Immature Granulocytes (promyelocytes, myelocytes and metamyelocytes) > 1% indicates that a LEFT SHIFT is Present. LAB L100.2620 2.0-7.7 X10 3/uL Normal Absolute Neut 2.1 LAB L100.2720 0.83-4.51 X10 3/ul Normal Absolute Lymph 1.54 Performed By: #### L100.0100 #### [facility] [address] [place], [address] BASIC METABOLIC Collected: 04/08/2018 Status: F Source: [place] PROFILE (BMP) 4:57 PM [facility] REPOSITORY TYPE CODE TESTS RESULT OUT OF RANGE REFERENCE UNITS LAB L501.0100 74-106 mg/dL High GLU 117 Result Comment: Fasting Glucose result from 100 to 125 mg/dL suggests IMPAIRED HOMEOSTASIS per A.D.A. criteria. Please note revised GLUCOSE reference range effective 2017. LAB L501.1000 7-18 mg/dL High BUN 30 LAB L501.1100 0.70-1.30 mg/dL High CREAT,SERUM 1.60 Result Comment: The validity of the calculated GFR AND GFRAA in patients over 70 years has not been determined. Clinical correlation is essential. LAB L501.1110 >60 mL/min Low EST GFR 45 Result Comment: Non- GFR Calc LAB L501.1115 >60 mL/min Low EST GFR - AA 54 Result Comment: GFR Calc LAB L501.1255 ml/min Normal Estimated CRCL 39.12 LAB L501.1300 10-20 RATIO Normal BUN/CRE 18.8 LAB L501.2200 8.5-10 mg/dL High .1 CA 10.2 LAB L501.5300 136-14 mmol/L Normal 5 NA 141 LAB L501.5600 3.5-5. mmol/L Normal 1 K 4.3 LAB L501.5900 98-107 mmol/L Normal CL 105 LAB L501.6100 21.0-3 mmol/L Normal 2.0 CO2 29.0 LAB L501.6200 5-15 Normal GAP 7 Performed By: #### L500.2500 #### [facility] [address] [place], [address] CBC W/DIFF, AUTOMATED Collected: 04/05/2018 Status: F Source: [place] 5:35 AM [facility] REPOSITORY TYPE CODE TESTS RESULT OUT OF RANGE REFERENCE UNITS LAB L100.1000 4.4-11.0 K/mm3 Normal WBC 4.5 LAB L100.1200 4.6-6.2 M/mm3 Low RBC 3.39 LAB L100.1300 13.0-16.5 g/dl Low HGB 9.8 LAB L100.1400 40-54 % Low HCT 31.0 LAB L100.1500 80-94 fL Normal MCV 91.4 LAB L100.1600 27.0-32.0 pg Normal MCH 28.9 LAB L100.1700 32-36 g/gl Low MCHC 31.6 LAB L100.1810 11.6-14.6 % High RDW CV 17.3 LAB L100.1820 35.1-43.9 fl High RDW SD 57.6 LAB L100.1900 150-450 K/mm3 Normal PLT 193 LAB L100.2000 6.2-12.0 fl Normal MPV 9.2 LAB L100.2100 47-70 % Normal NEUT% 49.6 LAB L100.2200 19-41 % Normal LY% 31.7 LAB L100.2300 0-10 % Normal MONO% 8.9 LAB L100.2400 0-5 % High EO% 9.4 LAB L100.2500 0-1 % Normal BASO% 0.2 LAB L100.2550 0.0-0.9 % Normal IM GRAN % 0.200 Result Comment: IG% - Immature Granulocytes (promyelocytes, myelocytes and metamyelocytes) > 1% indicates that a LEFT SHIFT is Present. LAB L100.2620 2.0-7.7 X10 3/uL Normal Absolute Neut 2.2 LAB L100.2720 0.83-4.51 X10 3/ul Normal Absolute Lymph 1.42 Performed By: #### L100.0100 #### [facility] [address] [place], [address] BASIC METABOLIC Collected: 04/05/2018 Status: F Source: [place] PROFILE ([facility]) 5:35 AM [facility] REPOSITORY TYPE CODE TESTS RESULT OUT OF RANGE REFERENCE UNITS LAB L501.0100 74-106 mg/dL Normal GLU 103 Result Comment: Fasting Glucose result from 100 to 125 mg/dL suggests IMPAIRED HOMEOSTASIS per A.D.A. criteria. Please note revised GLUCOSE reference range effective 2017. LAB L501.1000 7-18 mg/dL Normal BUN 17 LAB L501.1100 0.70-1.30 mg/dL Normal CREAT,SERUM 1.22 Result Comment: The validity of the calculated GFR AND GFRAA in patients over 70 years has not been determined. Clinical correlation is essential. LAB L501.1110 >60 mL/min Normal EST GFR 61 Result Comment: Non- GFR Calc LAB L501.1115 >60 mL/min Normal EST GFR - AA 74 Result Comment: GFR Calc LAB L501.1255 ml/min Normal Estimated CRCL 51.30 LAB L501.1300 10-20 RATIO Normal BUN/CRE 13.9 LAB L501.2200 8.5-10 mg/dL Normal .1 CA 9.5 LAB L501.5300 136-14 mmol/L Normal 5 NA 141 LAB L501.5600 3.5-5. mmol/L Normal 1 K 3.7 LAB L501.5900 98-107 mmol/L High CL 108 LAB L501.6100 21.0-3 mmol/L Normal 2.0 CO2 24.0 LAB L501.6200 5-15 Normal GAP 9 Performed By: #### L500.2500 #### [facility] [address] [place], [address] HISTORY AND PHYSICAL Observed: 04/04/2018 Status: F Source: [place]AM[place] EXAM 8:04 PM [facility] REPOSITORY [facility] Medical Records Department [address] [place] [address] History and Physical 04/04/181939 MR#: [id number] Acct: [id number] Name: NAVEEN AKINS Rep #: [id number] : 1940 78 From: Jh Gustafson MD PCP: Honorio LOREDO,Jack Status: ADM IN Y Location: [facility] [id number] ADDENDUM by Jh Gustafson MD on 04/04/18 at 2004 Code Visit Nutrition - Twocal 25ML per hour with 50ML Q4H flush, increase rate by 5ML per day to reach goal of 40ML per hour. 04/04/182003 <Electronically signed by Jh Gustafson MD> Date Jh Gustafson MD cc: Jack Olmedo MD; Jh Gustafson MD * Signed Problem List (1) Change in mental status Status: Acute (2) Vasovagal syndrome Status: Chronic (3) Aspiration pneumonia Status: Acute (4) Coronary artery disease Status: Chronic (5) Abdominal aortic aneurysm, ruptured Status: Resolved (6) Cardiac arrest Status: Resolved (7) Anoxic encephalopathy Status: Chronic (8) Hyperlipidemia Status: Chronic Qualifiers: (9) GERD (gastroesophageal reflux disease) Status: Chronic Qualifiers: (10) Dysphagia Status: Chronic Qualifiers: (11) HCAP (healthcare-associated pneumonia) Status: Acute (12) Anemia Status: Chronic Qualifiers: (13) Hypertension Status: Chronic Qualifiers: History of Present Illness Date of Admission: 04/04/18 Chief Complaint: Here for rehabilitation, strengthening, prior to disposition determination. The patient is a 78 year old Male with below past medical history significant for ruptured AAA with repair, anoxic encephalopathy, trach, peg, TCU resident transferred to [facility] Emergency Department 04/01/2018 with change in mental status. 04/01/2018 CT brain chronic involutional changes, chronic sinusitis. 04/01/2018 EKG sinus rhythm with occasional premature ventricular contractions. Unresponsive per family. Labs showed anemia, leukopenia. Chest X-ray showed right lower lobe infiltrate, worsened. IV Antibiotics given for aspiration pneumonia. 04/01/2018 Admit to Hospital. IV Zosyn, IV Vancomycin for healthcare associated pneumonia. Tube feeding rate decreased, family felt higher TF rates caused episodes of unresponsiveness at LTAC. 03/31/2018 EEG showed medication effect, epileptiform changes. 04/02/2018 Dr. Styles recommended decreasing TF rate for vasovagal syndrome from high TF rates. 04/03/2018 Dr. Mathews recommended weaning oxygen, consider VEST therapy. Adjust antibiotics per sputum culture results. Start PMV trial, then capping trial, then decannulation. TF rate decrease, TF changed to TwoCal. Enterobacter Cloacae HCAP treated with Levaquin. Weaning of tracheostomy. Transfused 2 units PRBC. 04/04/2018 Admit to TCU for rehabilitation, strengthening, prior to disposition determination. Past Medical History Past Medical History (Chronic Problems): Chronic Problems Anoxic encephalopathy (Chronic) Hyperlipidemia (Chronic) Iron deficiency anemia (Chronic) GERD (gastroesophageal reflux disease) (Chronic) Dysphagia (Chronic) Anemia (Chronic) Vasovagal syndrome (Chronic) Coronary artery disease (Chronic) Coronary artery disease (Chronic) Hypertension (Chronic) Allergies famotidine [From Pepcid] Adverse Reaction (Verified 04/01/18 03:17) Low blood pressure metoclopramide [From Reglan] Adverse Reaction (Verified 04/01/18 03:17) Other Home Medications: Ambulatory Orders Medication Instructions Recorded Chlorhexidine 15 ml PO BID 03/28/18 Docusate Sodium [COLACE LIQUID] 100 mg GT BID 03/28/18 Surgical History: - - LUE surgery w/ hardware, recent emergent AAA repair, trach, PEG. Psychiatric History: No pertinent psych hx Lives: Shelter Smoking Status: Never smoker Tobacco Use: Non-smoker Alcohol: None Drugs: None - *Family History Paternal History Items: - - No marked maternal or paternal family history reported including HD, DM, CA. Maternal History Items: - - No marked maternal or paternal family history reported including HD, DM, CA. Review of Systems Constitutional: Denies: Chills, Fever, Weight Change HEENT: Denies: Head Aches, Sinus Congestion, Sinus Drainage Cardiovascular: Denies: Chest Pain, Palpitations Respiratory: Denies: Cough, Shortness of breath at rest, Sputum production Gastrointestinal: Denies: Abdominal Pain, Nausea, Vomiting Genitourinary: Denies: Dysuria Musculoskeletal: Denies: Joint Pain, Joint Tenderness Skin: Denies: Rash, Wounds Neurological: Denies: Numbness, Tingling, Focal weakness Psychiatric: Denies: Anxiety, Depression, Homicidal Ideations, Suicidal Ideations Hematologic/ Lymphatic: Denies: Easy Bruising, Easy Bleeding VTE Information - Inpt Only VTE Present on Admission: No VTE Mechan Device Prophylaxis: Knee High GENARO Hose VTE Pharm Prophylaxis ordered?: Yes Patient Problems: Active and Suspected Problems Change in mental status (Acute) Aspiration pneumonia (Acute) - Physical Exam General: Alert, Oriented x3, Cooperative HEENT: Atraumatic, PERRLA, EOMI, Normocephalic Neck: Supple, No JVD, Negative Carotid Bruits, - - Tracheostomy. Lungs: Clear to auscultation, Normal air movement Cardiovascular: Regular rate, No murmurs Abdomen: Bowel Sounds Present, Soft, Non Tender, - - PEG. Extremities: No edema, Capillary Refill Less than 3 Seconds Skin: No rashes, No breakdown Musculoskeletal: No Tenderness to Palpation of Joints or Extremities Neurological: Cranial nerves II-XII grossly intact Psych/Mental Status: Normal Affect, Appropriate Vital Signs Temp Pulse Resp BP Pulse Ox 96.7 F L 87 20 H 122/80 H 98 04/04/18 16:00 04/04/18 16:43 04/04/18 16:00 04/04/18 16:43 04/04/18 16:00 Oxygen Delivery Method Trach Collar Weight: 72.68 kg Body Mass Index (BMI) 23.0 Assessment/Plan All Active Problems Abdominal aortic aneurysm, ruptured (Resolved) Cardiac arrest (Resolved) Acute kidney injury (Acute) Tachycardia (Acute) DIC (disseminated intravascular coagulation) (Acute) Ileus (Acute) HCAP (healthcare-associated pneumonia) (Acute) Unresponsive state (Acute) Change in mental status (Acute) Aspiration pneumonia (Acute) 78 year old male with below past medical history significant for ruptured AAA status post emergent repair, hospitalized for change in mental status secondary to vasovagal syndrome, complicated by E. Cloacae HCAP, anemia, admitted to TCU with debility, here for rehabilitation, strengthening, prior to disposition determination. * Debility - PT/OT. * Dysphagia - ST. * Pain - Tylenol 650MG GT Q4H PRN mild pain. * Bowel - Colace 100MG BID. * Pneumonia vaccination - Resident family declined pneumonia vaccinations. * DVT prophylaxis - Heparin 5000 units SC BID. * Shortness of breath - Duoneb 3ML TID, Albuterol 2.5MG Q2H PRN. * Iron deficiency anemia - Ferrous Sulfate 325MG BID. * GERD - Lansoprazole 30MG daily. * E. Cloacae HCAP - Levaquin 500MG daily thru 04/11/2018. * Coronary Artery Disease - Metoprolol 12.5MG BID. * Thrush - Nystatin 100,000 4x/day thru 04/14/2018. * Dry Eyes - Artificial Tears 1GTT OU BID. 04/04/181999 <Electronically signed by Jh Gustafson MD> Date Jh Gustafson MD Cosigner Signature: Date (if applicable) CC: Jack Olmedo MD; Jh Gustafson MD Signed DISCHARGE SUMMARY Observed: 04/04/2018 Status: F Source: LAM[place] 5:16 PM [facility] REPOSITORY [facility] Medical Records Department [address] [place] [address] Discharge Summary 04/04/18 1129 MR#: [id number] Acct: [id number] Name: NAVEEN AKINS Rep #: [id number] : 1940 78 From: Marisol Montiel MD PCP: Jack Olmedo MD Status: DIS IN Y Location: [place] [address] Discharge Date and Diagnosis Date of Admission: 04/01/18 Date of Discharge: 04/04/18 - Primary Discharge Diagnosis Active and Suspected Problems HCAP (healthcare-associated pneumonia) (Acute) Anemia (Acute) Unresponsive state (Acute) - Secondary Discharge Diagnosis Chronic Problems Anoxic encephalopathy (Chronic) Hyperlipidemia (Chronic) Iron deficiency anemia (Chronic) GERD (gastroesophageal reflux disease) (Chronic) Dysphagia (Chronic) Coronary artery disease (Chronic) Hypertension (Chronic) Hospital Course and Treatment Imaging Results: Clinical Impression(s) from Imaging Studies Brain CT 04/01/18 02:37 IMPRESSION: Chronic involutional changes of the brain. New lateral mastoiditis and interval development of chronic sinusitis. Remote injury to the left maxillary sinus suspected. There is no acute intracranial pathology. Electronically Signed: Santa Travis MD at 4:01 EDT , Service support , Chest X-Ray 04/03/18 04:35 IMPRESSION: Improving bibasilar subsegmental atelectasis versus pneumonia. Electronically Signed: Tim Drew MD at 5:38 EDT , Service support , Pulmonology Neurology Operations: None Procedures: Electroencephalogram Summary of Care Provided: 78-year-old male with past medical history of hypertension, hyperlipidemia, status post recent prolonged complex hospitalization associated with syncope, serial responsive episodes and serial CODE BLUE, which are pending [facility]. Patient subsequently has been discharged to LTAC and finally in TCU. Patient was transferred to the hospital after an episode of unresponsiveness. 1. Recurrent syncope, no seizure related, EEG done and is consistent with metabolic encephalopathy, neurology consulted believes it is likely vasovagal due to tube feeds, tube feeds rates decreased as well as of large volumes, speech therapy and dietitian were consulted. Patient's tube feeds were switched to TwoCal per family request. 2. Possible Enterobacter HCAP, usually managed on vancomycin and Zosyn, sputum cultures growing Enterobacter Cloacae, sensitive to Levaquin, switched to Levaquin for 7 more days 3. Chronic respiratory failure, status post tracheostomy, pulmonology consulted, recommendations will be followed for possible weaning of tracheostomy in the [facility] facility 4. Hypokalemia, replaced 5. Acute on chronic normocytic normochromic/iron deficiency anemia, status post 2 PRBC transfusion, posttransfusion Hb was 9.6, stable 6. Chronic anoxic encephalopathy, appears to be at his baseline per family 7. Recent AAA status post repair 8. CAD, on aspirin, beta-lyric, not on statin. 9. Hypertension, controlled, continue metoprolol 10. Hyperlipidemia,not on statin 11. Dysphagia related to anoxic encephalopathy, POA, status post PEG tube, on tube feeds Subjective: No acute events overnight. No episodes of unresponsiveness. No complaints from patient. Objective: Physical exam: General: Alert, Oriented x3, Cooperative, No apparent distress HEENT: Atraumatic, PERRLA, EOMI, Normocephalic Oral: Moist Mucosa Neck: Supple, - - Tracheostomy collar in place Lungs: Normal air movement, Diminished - at the Lung bases Cardiovascular: Regular rate, Regular Rhythm, Normal S1, Normal S2, No murmurs Abdomen: Bowel Sounds Present, Soft, Non Tender, Non-Distended, No Hepato-splenomegaly, - - Midline incisional scar, PEG tube in situ Extremities: No edema Skin: No rashes, No breakdown Musculoskeletal: No Tenderness to Palpation of Joints or Extremities Lymphatic: No Cervical, Supraclavicular, or Inguinal Adenopathy Neurological: Cranial nerves II-XII grossly intact Psych/Mental Status: Normal Affect, Appropriate - Physical Exam Vital Signs Temp Pulse Resp BP Pulse Ox 97.3 F L 82 20 H 106/58 L 97 04/04/18 09:15 04/04/18 09:28 04/04/18 09:15 04/04/18 09:15 04/04/18 09:15 Oxygen Flow Rate (L/min) 6 Oxygen Delivery Method Trach Collar Weight: 81 kg Body Mass Index (BMI) 25.5 Intake and Output for Last 24 Hours Intake Total 1619 / 1619 2892 / 2892 877 / 877 Output Total 102 / 102 Balance 1619 / 1619 2790 / 2790 877 / 877 Microbiology Past 72 Hours 04/03/18 15:35 Gram Stain - Final Sputum, Tracheal Aspirate Respiratory Culture - Preliminary Laboratory Tests Past 24 Hrs Sodium 142 Potassium 3.3 L Chloride 107 Carbon Dioxide 25.0 BUN 18 Creatinine 1.23 Discharge Diet: Low fat/ Low Cholesterol, 2000 mg Sodium Diet Discharge Activity: Return to Normal Activity Home Medications: Medications to take at Discharge Chlorhexidine 15 ml PO BID 03/28/18 Docusate Sodium [COLACE LIQUID] 100 mg GT BID 03/28/18 Ferrous Sulfate Syrup 325 mg GT BID 03/28/18 Heparin Injection 5,000 units SC BID 03/28/18 Ipratropium/Albuterol Sulfate [Duoneb] 3 ml INHALATION TID 03/28/18 Lansoprazole [Prevacid] 30 mg GT DAILY 03/28/18 Metoprolol Tartrate [Lopressor (beta lyric)] 12.5 mg GT BID 03/28/18 Nystatin 100,000 unit PO 4X/DAY 03/28/18 Propylene Glycol/Peg 400/Pf [Systane 0.3-0.4% Eye Drop] 1 each OP BID 03/28/18 Albuterol Aerosols [Ventolin Aerosols] 2.5 mg INHALATION Q2H PRN PRN vial.neb. 04/04/18 Levofloxacin [Levaquin] 500 mg GT DAILY 04/04/18 Primary Care Physician: Jack Olmedo MD [Primary Care Provider] - Please Follow Up With: Nelson Mathews MD When: in 4 weeks [facility]position[facility] facility Minutes spent on discharge:: 50 Patient Condition:: Stable Medical Necessity - Tobacco Use Smoking Status: Never smoker Tobacco Use: Non-smoker Meaningful Use Info Meaningful Use Diagnoses (Choose all that apply): None applicable Code Visit Inpatient E AND M: 93791 Disch Hosp 04/04/18 1716 <Electronically signed by Marisol Montiel MD> Date Marisol Montiel MD Cosigner Signature (if applicable): Date CC: Marisol Montiel MD; Jack Olmedo MD Signed 12 LEAD ELECTROCARDIOGRAM Observed: 04/04/2018 Status: F Source: [place]AM[place] 11:33 AM [facility] REPOSITORY [facility] Cardiovascular Services [address] [place] [address] 12 Lead EKG 03/29/18 0935 MR#: [id number] Acct: [id number] Name: NAVEEN AKINS Kaylah Rep #: [id number] : 1940 78 From: Moy Gee MD Attending Dr: Sj LOREDO,Jh Crouch Status: DIS IN Ordering Dr: Darrell Gomez MD Date: 03/29/18 Location: [facility] Sex: M C Admitted: 03/28/18 Test Reason : RAPID RESPONSE Blood Pressure : / mmHG Vent. Rate : 078 BPM Atrial Rate : 078 BPM P-R Int : 158 ms QRS Dur : 088 ms QT Int : 410 ms P-R-T Axes : 031 -24 -06 degrees QTc Int : 467 ms Normal sinus rhythm Normal ECG When compared with ECG of 11-JAN-2018 23:30, Nonspecific T wave abnormality, worse in Inferior leads Nonspecific T wave abnormality now evident in Anterolateral leads Confirmed by MOY GEE ([id number]), purchasing expeditor KATHY SILVA ([id number]) on 04/04/2018 11:33:34 AM Referred By: Jh Gustafson Confirmed By:MOY GEE 04/04/18 1133 Date Moy Gee MD CC: Jack Olmedo MD; Darrell Gomez MD; Jh Gustafson MD Signed TRANSFER TO EXTENDED Observed: 04/04/2018 Status: F Source: [place] CARE 11:28 AM [facility] REPOSITORY [facility] Medical Records Department [address] [place] [address] Transfer to Extended Care MR#: [id number] Acct: [id number] Name: NAVEEN AKINS Rep #: [id number] : 1940 78 From: Marisol Montiel MD PCP: Jack Olmedo MD Status: ADM IN NAVEEN AKINS (Patient) (Health Ins. Claim No.) (Day of Discharge to Facility) Certification of patient admission REQUIRED AT TIME OF ADMISSION. I CERTIFY THAT POST-HOSPITAL ECF SERVICES ARE REQUIRED TO BE GIVEN ON AN IN-PATIENT BASIS BECAUSE OF THE ABOVE NAMED PATIENT'S NEED FOR SKILLED NURSING CARE ON A CONTINUING BASIS FOR THE CONDITION(S) FOR WHICH HE/SHE WAS RECEIVING IN-PATIENT HOSPITAL SERVICES PRIOR TO HIS/HER TRANSFER TO THE ECF. 04/04/18 1128 <Electronically signed by Marisol Montiel MD> Date Marisol Montiel MD - Diet 04/01/18 05:50 Diet: Nothing Per Oral Tube Feed: TwoCal tube feeds, see below in [employer] notes - Routine Orders/Code Status O2 Liters per Minute: via trach collar Keep PO Greater than or Equal to (%): 92 Routine Lab Work: CBC - within 3 days, BMP - within 3 days Code Status: Full Code - Therapies Physical Therapy: Eval and Treat Occupational Therapy: Eval and Treat Speech Therapy: Eval and Treat - Allergies/Procedures Done in Hospital Allergies/Adverse Reactions: Allergies famotidine [From Pepcid] Adverse Reaction (Verified 04/01/18 03:17) Low blood pressure metoclopramide [From Reglan] Adverse Reaction (Verified 04/01/18 03:17) Other Procedures: None - Type of Care/Length of Stay Estimated LOS: Convalescent Care Less Than 30 days Type of Care Needed: Skilled Rehab Potential: Fair Prognosis: Fair - Additional Orders/Day of Discharge Additional Orders: Continue on trach collar for 1-2 days. Consider initiation of PMV trial in 1-2 days. If tolerates PMV trial, capping trial can be initiated. Day of Discharge: 04/04/18 - Dietary and Speech Recommendations Dietitian Recommendations/Changes: Rec TwoCal HN at goal rate of 40cc/hour w/ 50cc flush q 2 hours to provide 1920 calories, 80 g protein, and 1272cc free fluid/day. Would start this product at 25cc/hour and increase by 5cc DAILY as pt tolerates until goal rate achieved. Would start flushes at 50cc q 4 hours and transition to 50cc q 2 hours once pt meets goal TF rate. Over time, free fluid flushes will need to be increased to meet pt's fluid needs, RD will continue to follow and adjust recommendations accordingly. - Follow Up Care Primary Care Physician: Jack Olmedo MD [Primary Care Provider] - Please Follow Up With: Nelson Mathews MD When: in 4 weeks 04/04/18 1128 <Electronically signed by Marisol Montiel MD> Date Marisol Montiel MD CC: Kelton Mcclendon MD; Nelson Matehws MD; Jack Olmedo MD Signed 12 LEAD ELECTROCARDIOGRAM Observed: 04/04/2018 Status: F Source: [facility] 8:39 [facility] REPOSITORY [facility] Cardiovascular Services [address] [place] [address] 12 Lead EKG 04/01/18 0303 MR#: [id number] Acct: [id number] Name: NAVEEN AKINS Rep #: [id number] : 1940 78 From: Moy Gee MD Attending Dr: Marisol Montiel MD Status: ADM IN Ordering Dr: Tim Fernando MD Date: 04/01/18 Location: [facility] Sex: M C Admitted: 04/01/18 Test Reason : ALT LOC Blood Pressure : / mmHG Vent. Rate : 090 BPM Atrial Rate : 090 BPM P-R Int : 150 ms QRS Dur : 088 ms QT Int : 386 ms P-R-T Axes : 028 -18 -21 degrees QTc Int : 472 ms Sinus rhythm with occasional Premature ventricular complexes Otherwise normal ECG Confirmed by MOY GEE ([id number]), purchasing expeditor KATHY SILVA ([id number]) on 04/04/2018 8:39:18 AM Referred By: JUAN JOSE Confirmed By:MOY GEE 04/04/18 0839 Date Moy Gee MD CC: Marisol Montiel MD; Jack Olmedo MD; Tim Fernando MD Signed CONSULTATION Observed: 04/04/2018 Status: F Source: LAM[place] 7:22 AM [facility] REPOSITORY [facility] Medical Records Department [address] [place] [address] Consultation 04/03/18 1343 MR#: [id number] Acct: [id number] Name: NAVEEN AKINS Rep #: [id number] : 1940 78 From: Nelson Mathews MD PCP: Jack Olmedo MD Status: ADM IN Location: [place] [address]-1 Problem List (1) Abdominal aortic aneurysm, ruptured Status: Resolved (2) Cardiac arrest Status: Resolved (3) Anoxic encephalopathy Status: Chronic (4) Dysphagia Status: Chronic Qualifiers: Dysphagia type: oropharyngeal phase Qualified Code(s): R13.12 - Dysphagia, oropharyngeal phase (5) HCAP (healthcare-associated pneumonia) Status: Acute (6) Coronary artery disease Status: Chronic Qualifiers: Coronary Disease-Associated Artery/Lesion type: unspecified vessel or lesion type [place] vs. transplanted heart: unspecified whether [place] or transplanted heart Associated angina: angina presence unspecified Qualified Code(s): I25.10 - Atherosclerotic heart disease of [place] coronary artery without angina pectoris (7) Hypertension Status: Chronic Qualifiers: Hypertension type: essential hypertension Qualified Code(s): I10 - Essential (primary) hypertension Reason for Consult Date of Consultation: 04/03/18 Reason for Consultation: Chronic respiratory failure History of Present Illness: The patient is a 78 year old M, with past medical history listed below, who presented to [facility] on 04/01/2018 from the TCU secondary to change in mental status. An NURSE'S ASSISTANT had been called on TCU secondary to patient staring off and becoming less interactive and oriented. In the emergency department, patient was afebrile with an adequate blood pressure, but tachypnea and requiring a trach collar for oxygenation. Patient was noted to have a hemoglobin of 6.8. Radiologic workup was unremarkable. Patient was admitted to the general medical floor and initiated on antibiotics. Patient did have an EEG and neurologic workup. End result was the thought of a vasovagal episode secondary to bolus tube feeds. Pulmonary consultation is being requested secondary to patient's tracheostomy and weaning recommendations. Patient reportedly was transferred to [facility] secondary to an emergency AAA repair. Patient had a very complicated hospital course with serial CODE BLUE events that resulted in tracheostomy, PEG and LTAC stay. Patient was recently transferred to the TCU for rehab. Patient's family reports a possible history of obstructive sleep apnea prior to the acute hospitalization. Otherwise, patient did not have any respiratory difficulties. 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 Patient did not have any inhalers at home. Patient has never required supplemental oxygen. Patient's family reports that he was being capped for most of the day prior to leaving the LTAC. Patient was able to expectorate his secretions, but was told to practice swallowing. Patient did have a history of mucous plugging in the past, but this was reportedly improving from their perspective. Review of systems otherwise negative x10 systems per the family, but patient is not very helpful. Past Medical History Past Medical History (Chronic Problems): Chronic Problems Anoxic encephalopathy (Chronic) Hyperlipidemia (Chronic) Iron deficiency anemia (Chronic) GERD (gastroesophageal reflux disease) (Chronic) Dysphagia (Chronic) Coronary artery disease (Chronic) Hypertension (Chronic) Allergies famotidine [From Pepcid] Adverse Reaction (Verified 04/01/18 03:17) Low blood pressure metoclopramide [From Reglan] Adverse Reaction (Verified 04/01/18 03:17) Other Home Medications: Ambulatory Orders Medication Instructions Recorded Chlorhexidine [(None)] 15 ml PO BID 03/28/18 Docusate Sodium [COLACE LIQUID] 100 mg GT BID 03/28/18 Ferrous Sulfate Syrup 325 mg GT BID 03/28/18 Surgical History: - - LUE surgery w/ hardware, recent emergent AAA repair, trach, PEG. Psychiatric History: No pertinent psych hx Lives: Shelter Smoking Status: Never smoker Tobacco Use: Non-smoker Alcohol: None Drugs: None - *Family History Paternal History Items: - - No marked maternal or paternal family history reported including HD, DM, CA. Maternal History Items: - - No marked maternal or paternal family history reported including HD, DM, CA. Review of Systems Comment: See HPI, otherwise negative x10 systems. Patient Problems: Active and Suspected Problems HCAP (healthcare-associated pneumonia) (Acute) Anemia (Acute) Unresponsive state (Acute) - Physical Exam General: Cooperative, No apparent distress, Lethargic, - - RASS -1 HEENT: Atraumatic, PERRLA, EOMI, Normocephalic Oral: Moist Mucosa, No Gingival or Mucosal Lesions/ Ulcerations Neck: Supple, No JVD, No Nodes, No Nuchal Rigidity, - - Trach is clean, dry and intact. Lungs: No wheeze, No rales, Diminished, Rhonchi - Improved with cough, - - Symmetric expansion. No dullness to percussion. Cardiovascular: Regular rate, Regular Rhythm, Normal S1, Normal S2, No murmurs, No rub noted, No Gallop Abdomen: Bowel Sounds Present, Soft, Non Tender, Non-Distended Extremities: No clubbing, No cyanosis Skin: No rashes, No breakdown Musculoskeletal: No Tenderness to Palpation of Joints or Extremities Lymphatic: No Cervical, Supraclavicular, or Inguinal Adenopathy Neurological: Cranial nerves II-XII grossly intact, Motor Exam 5/5 strength throughout, - - Significant tremor noted. Psych/Mental Status: Flat Affect, Restless Vital Signs Temp Pulse Resp BP Pulse Ox 36.3 C L 70 18 119/63 97 04/03/18 10:06 04/03/18 11:55 04/03/18 11:22 04/03/18 10:06 04/03/18 11:22 Oxygen Flow Rate (L/min) 6 Oxygen Delivery Method Trach Collar Weight: 81 kg Body Mass Index (BMI) 25.5 Intake and Output for Last 24 Hours Intake Total 825.3 / 825.3 1619 / 1619 2298 / 2298 Output Total 52 / 52 Balance 825.3 / 825.3 1619 / 1619 2246 / 2246 Microbiology Past 72 Hours 04/01/18 22:55 Gram Stain - Final Laboratory Tests Past 24 Hrs WBC RBC Hgb Hct MCV MCH MCHC RDW RDW Differential Plt Count WBC 4.4 RBC 3.25 L Hgb 9.6 L Hct 29.4 L MCV 90.5 MCH 29.5 MCHC 32.7 RDW 17.1 H RDW Differential 53.7 H Clinical Impression(s) from Imaging Studies Brain CT 04/01/18 02:37 IMPRESSION: Chronic involutional changes of the brain. New lateral mastoiditis and interval development of chronic sinusitis. Remote injury to the left maxillary sinus suspected. There is no acute intracranial pathology. Electronically Signed: Santa Travis MD at 4:01 EDT , Service support , Chest X-Ray 04/01/18 02:37 IMPRESSION: Suspect bibasilar atelectasis and or infiltrates, slightly more pronounced on current examination. Electronically Signed: Santa Travis MD at 3:23 EDT , Service support , Chest X-Ray 04/03/18 04:35 IMPRESSION: Improving bibasilar subsegmental atelectasis versus pneumonia. Electronically Signed: Tim Drew MD at 5:38 EDT , Service support , Assessment/Plan All Active Problems Abdominal aortic aneurysm, ruptured (Resolved) Cardiac arrest (Resolved) Acute kidney injury (Acute) Tachycardia (Acute) DIC (disseminated intravascular coagulation) (Acute) Ileus (Acute) HCAP (healthcare-associated pneumonia) (Acute) Anemia (Acute) Unresponsive state (Acute) RECOMMENDATIONS: 1. Wean oxygen as tolerated, consider vest therapy 2. Change antibiotics given sputum culture 3. Likely okay to initiate PMV trial in 2-3 days 4. If tolerates PMV trial, capping trial can be initiated 5. Reasonable candidate for possible decannulation 6. Consider continuous tube feeds as opposed to bolus IMPRESSIONS: 1. Chronic respiratory failure secondary to complicated hospital course Patient currently with tracheostomy requiring supplemental oxygen. Patient has had issues with mucus plugging. May use vest therapy for pulmonary toileting if patient continues to have complications. Patient with no underlying respiratory illness reported. Patient has had compromise secondary to prolonged hospitalization. Purulent sputum has been reported with mucus plugging. Sputum culture noted. Will change antibiotics for coverage. Likely okay to proceed with PMV trial in 2-3 days after appropriate antibiotics. If patient tolerates PMV trial, capping trial can be initiated. Patient would be a reasonable candidate for possible decannulation. 2. Recurrent syncope Thought is this is a vasovagal episode. EEG was relatively unremarkable for any etiology. Review of the notes showed no hemodynamic instability over the course of the hospitalization. Patient does have a drop in hemoglobin, but workup is currently underway. 3. Recent AAA repair/CAD/hypertension/hyperlipidemia/GERD/advanced age Complicates care, management, recovery and prognosis Code Visit Inpatient E AND M: [id number] Init Hosp L2 04/04/18 0722 <Electronically signed by Nelson Mathews MD> Date Nelson Mathews MD Cosigner Signature (if applicable): Date CC: Kelton Mcclendon MD; Nelson Mathews MD; Jack Olmedo MD Signed RENAL PROFILE Collected: 04/04/2018 Status: F Source: [place] 6:07 AM [facility] REPOSITORY TYPE CODE TESTS RESULT OUT OF RANGE REFERENCE UNITS LAB L501.0100 74-106 mg/dL Normal GLU 87 Result Comment: Please note revised GLUCOSE reference range effective 2017. LAB L501.1000 7-18 mg/dL Normal BUN 18 LAB L501.1100 0.70-1.30 mg/dL Normal CREAT,SERUM 1.23 Result Comment: The validity of the calculated GFR AND GFRAA in patients over 70 years has not been determined. Clinical correlation is essential. LAB L501.1110 >60 mL/min Normal EST GFR 61 Result Comment: Non- GFR Calc LAB L501.1115 >60 mL/min Normal EST GFR - AA 73 Result Comment: GFR Calc LAB L501.1255 ml/min Normal Estimated CRCL 51.11 LAB L501.1300 10-20 RATIO Normal BUN/CRE 14.6 LAB L501.1800 3.2-5. g/dL Low 0 ALB 2.3 LAB L501.2200 8.5-10 mg/dL Normal .1 CA 9.3 LAB L501.2300 2.5-4. mg/dL Normal 9 PHOS 3.1 LAB L501.5300 136-14 mmol/L Normal 5 NA 142 LAB L501.5600 3.5-5. mmol/L Low 1 K 3.3 LAB L501.5900 98-107 mmol/L Normal CL 107 LAB L501.6100 21.0-3 mmol/L Normal 2.0 CO2 25.0 Performed By: #### L500.3600 #### [facility] [address] [place], [address] Observed: 04/03/2018 Status: F Source: [place] CULTURE, SPUTUM 3:35 PM [facility] REPOSITORY Comments: tracheal aspirate obtained at 1535 Gram Stain Acceptable Specimen? Acceptable Specimen(Evaluation not needed) Gram Stain 2+ White Blood Cells 1+ Epithelial cells 1+ Gram positive cocci Resp. Culture ORGANISM 1: Enterobacter cloacae complex Amount Growth 1+ Enterobacter cloacae complex: REACTION Amoxacillin/Clavulanic Acid $ >=32 R Cefazolin $ >=64 R Cefepime $ <=1 S Ceftriaxone $ >=64 R Ciprofloxacin $ <=0.25 S Ertapenim $$$ <=0.5 S Gentamicin $ <=1 S Imipenem *NF <=0.25 S Levofloxacin $ 0.5 S Piperacillin/Tazobactam $$ 64 I Tobramycin $ <=1 S Trimethoprim/Sulfametho $ <=20 S (NF) indicates non-formulary drug at [facility]. Approval by Infectious Disease Specialist required before non-formulary drugs may be ordered and/or dispensed. Performed By: #### M100.0800 #### [facility] [address] [place], [address] Observed: 04/03/2018 Status: F Source: [place] STOOL OCCULT BLOOD 3:20 PM [facility] IFOB REPOSITORY STOB iFOB Occult Blood Negative Performed By: #### M100.7900 #### [facility] [address] [place], [address] Observed: 04/03/2018 Status: F Source: [place] LEGIONELLA ANTIGEN 2:54 PM [facility] URINE REPOSITORY Legionella, UR Legionella Antigen result interpretation: Negative Presumptive negative for Legionella pneumophila serogroup 1 antigen in urine, suggesting no recent or current infection. Legionella Ag, Urine Negative (See interpretation below) Performed By: #### M300.4500 #### [facility] [address] [place], [address] STREP Observed: 04/03/2018 Status: F Source: [place] PNEUMONIAE ANTIG(UR,CSF) 2:54 PM [facility] REPOSITORY S pneumo Ag URINE INTERPRETATION Negative Urine Presumptive negative for pneumococcal pneumonia, suggesting no current or recent pneumococcal infection. Infection due to S pneumoniae cannot be ruled out since the antigen present in the sample may be below the detection limit of the test. Strep pneumo Test Negative URINE (See interpretation below) Performed By: #### M300.4600 #### [facility] [address] [place], [place], [address] CBC W/DIFF, AUTOMATED Collected: 04/03/2018 Status: F Source: [place] 4:30 AM [facility] REPOSITORY TYPE CODE TESTS RESULT OUT OF RANGE REFERENCE UNITS LAB L100.1000 4.4-11.0 K/mm3 Normal WBC 4.4 LAB L100.1200 4.6-6.2 M/mm3 Low RBC 3.25 LAB L100.1300 13.0-16.5 g/dl Low HGB 9.6 LAB L100.1400 40-54 % Low HCT 29.4 LAB L100.1500 80-94 fL Normal MCV 90.5 LAB L100.1600 27.0-32.0 pg Normal MCH 29.5 LAB L100.1700 32-36 g/gl Normal MCHC 32.7 LAB L100.1810 11.6-14.6 % High RDW CV 17.1 LAB L100.1820 35.1-43.9 fl High RDW SD 53.7 LAB L100.1900 150-450 K/mm3 Normal PLT 210 LAB L100.2000 6.2-12.0 fl Normal MPV 9.2 LAB L100.2100 47-70 % Low NEUT% 45.0 LAB L100.2200 19-41 % Normal LY% 35.1 LAB L100.2300 0-10 % Normal MONO% 9.3 LAB L100.2400 0-5 % High EO% 10.2 LAB L100.2500 0-1 % Normal BASO% 0.2 LAB L100.2550 0.0-0.9 % Normal IM GRAN % 0.200 Result Comment: IG% - Immature Granulocytes (promyelocytes, myelocytes and metamyelocytes) > 1% indicates that a LEFT SHIFT is Present. LAB L100.2620 2.0-7.7 X10 3/uL Normal Absolute Neut 2.0 LAB L100.2720 0.83-4.51 X10 3/ul Normal Absolute Lymph 1.55 Performed By: #### L100.0100 #### [facility] [address] [place], [place], [address] VANCOMYCIN, TROUGH Collected: 04/03/2018 Status: F Source: [place] LEVEL 4:30 AM [facility] REPOSITORY Order Comment: Time Medication is to be Given? 0500 TYPE CODE TESTS RESULT OUT OF REFERENCE UNITS RANGE LAB L501.8820 5.0-15.0 ug/mL High VANCO, TROUGH 17.0 Result Comment: VANCOMYCIN STANDARED DRUG THERAPY TROUGH LEVEL: 5.0 - 15.0 mg/L VANCOMYCIN HIGH INTENSITY THERAPY TROUGH LEVEL: 15.0 - 20.0 mg/L High Intensity therapy recommended for serious life threatening infections include: - Meningitis -Endocarditis -Pneumonia (Ventilator/Healtcare Associated) -Sepsis PLEASE CONTACT PHARMACY SERVICES (#[id number]) FOR INTERPRETATION OF RESULTS. Performed By: #### L501.8820 #### [facility] [address] [place], [place], [address] RENAL PROFILE Collected: 04/03/2018 Status: F Source: [place] 4:30 AM [facility] REPOSITORY TYPE CODE TESTS RESULT OUT OF RANGE REFERENCE UNITS LAB L501.0100 74-106 mg/dL Normal GLU 96 Result Comment: Please note revised GLUCOSE reference range effective 2017. LAB L501.1000 7-18 mg/dL Normal BUN 18 LAB L501.1100 0.70-1.30 mg/dL Normal CREAT,SERUM 1.28 Result Comment: The validity of the calculated GFR AND GFRAA in patients over 70 years has not been determined. Clinical correlation is essential. LAB L501.1110 >60 mL/min Low EST GFR 58 Result Comment: Non- GFR Calc LAB L501.1115 >60 mL/min Normal EST GFR - AA 70 Result Comment: GFR Calc LAB L501.1255 ml/min Normal Estimated CRCL 49.11 LAB L501.1300 10-20 RATIO Normal BUN/CRE 14.1 LAB L501.1800 3.2-5. g/dL Low 0 ALB 2.4 LAB L501.2200 8.5-10 mg/dL Normal .1 CA 9.1 LAB L501.2300 2.5-4. mg/dL Normal 9 PHOS 3.7 LAB L501.5300 136-14 mmol/L Normal 5 NA 144 LAB L501.5600 3.5-5. mmol/L Low 1 K 3.4 LAB L501.5900 98-107 mmol/L High CL 108 LAB L501.6100 21.0-3 mmol/L Normal 2.0 CO2 23.0 Performed By: #### L500.3600 #### [facility] [address] [facility] [facility] [place], [address] CHEST 1 VIEW Observed: 04/03/2018 Status: F Source: [place] (PORTABLE) 12:01 AM [facility] REPOSITORY [facility] Imaging Services [address] [place] [address] Chest 1 View (Portable) MR#: [id number] Acct: [id number] Name: NAVEEN AKINS Kaylah Rep #: [id number] : 1940 M 78 From: Tim Drew PCP: Jack Olmedo MD Status: ADM IN Study: Chest 1 View (Portable) Date of Exam: 04/03/18 Exam# [id number] Ordering Dr: Marisol Montiel MD STUDY: X-RAY CHEST REASON FOR EXAM: Male, 78 years old. Shortness of breath. TECHNIQUE: AP portable chest. COMPARISON: April 01, 2018. FINDINGS: Tracheostomy tube in stable position. The heart is not enlarged. Airspace opacity in the right cardiophrenic angle slightly improved. Left lower lobe airspace opacity also improved since prior study. No effusions. No pneumothorax. Normal visualized thoracic spine. Normal visualized ribs, clavicles, and shoulders. There is no demonstrated abnormality of the visualized soft tissue structures of the upper abdomen. RAD/Chest 1 View (Portable) IMPRESSION: Improving bibasilar subsegmental atelectasis versus pneumonia. Electronically Signed: Tim Drew MD at 5:38 EDT , Service support , CC: Marisol Montiel MD; Jack Olmedo MD Senior Major Gifts Officer: Signed URINALYSIS, COMPLETE Collected: 04/02/2018 Status: F Source: [place] 10:20 PM [facility] REPOSITORY Order Comment: Order Date: 04/01/18 How was Urine Obtained? CLEAN CATCH TYPE CODE TESTS RESULT OUT OF RANGE REFERENCE UNITS LAB L400.3000 Yellow COLOR Normal Yellow LAB L400.3050 Clear Normal CLARITY Clear LAB L400.3200 Normal mg/dl Normal GLUCOSE, UR Normal LAB L400.3300 Negative mg/dL Normal BILIRUBIN URINE Negative LAB L400.3400 Negative mg/dl Normal KETONE UR Negative LAB L400.3465 1.002-1.030 Normal SP.GR. DIPSTX 1.010 LAB L400.3550 5.0 - 8.0 pH UR Normal 6.5 LAB L400.3600 Negative mg/dl PROT Normal DIPSTX Negative LAB L400.3700 Normal mg/dl Normal UROBILI Normal LAB L400.3750 Negative Normal NITRITE UR Negative LAB L400.3780 Negative /ul Normal OCCULT BLOOD-UR Negative LAB L400.3800 Negative /ul High LEUK 25 ESTERASE LAB L400.4050 0-5 /hpf WBC 0 Normal SEEN LAB L400.4100 0-5 /hpf 0 Normal RBC-UA SEEN LAB L400.4150 0-5 /hpf SQUAM 0 Normal EPI SEEN LAB L400.4300 None Seen /hpf 0 Normal BACTERIA SEEN LAB L400.4350 <or=2+ /hpf 0 Normal MUCUS, URINE SEEN Performed By: #### L400.0001 #### [facility] [address] [facility] [place], [address] CONSULTATION Observed: 04/02/2018 Status: F Source: [place] 11:06 AM [facility] REPOSITORY [facility] Medical Records Department [address] [place] [address] Consultation 04/02/18 1052 MR#: [id number] Acct: [id number] Name: NAVEEN AKINS Rep #: [id number] : 1940 78 From: Abdullahi Styles MD PCP: Honorio LOREDO,Jack Status: ADM IN Y Location: [place] [address] Reason for Consult Date of Consultation: 04/02/18 Reason for Consultation: spells History of Present Illness: The patient is a 78 year old M with recurrent spells always associated with tube feeds. had complete cardiology evaluation at [facility] and did not have need for intervention. family describes spells as sudden startle appearance, stop breathing, then would become unresponsive, eyes closed, no shaking. per family his heart rate would go to zero while at [facility]. he's had approximately 8 spells, first of which was 03/09/18. only one spell coded, others he recovered on without cpr. associated diaphoresis The patient is a 78 y/o M w/ PMHx: HTN, HLD, CAD, GERD, Recent prolonged hospitalization secondary to onset 01/11/18 syncope w/ L flank pain, diaphoresis and nausea with CT scan of abdomen/pelvis w/ ruptured abdominal aortic aneurysm prompting transition to 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 Discussion with family and decision to transition to the ED for further evaluation. Family also noting upon patient evaluation that he has been having increased confusion and less responsiveness baseline than he was prior and has been appearing to decline over the last 2 weeks. Family notes that he has had a chronic cough since trach and peg placement and notes that he does have frequent mucous plugging. He has also appeared more tight, wheezing than prior. He was also per report supposed to have 1 u PRBC on 04/01/18. In the ED work-up included T 97.3, heart rate 92, BP 108/69, respiratory rate 34, 96% on a trach collar, CBC with WBC set 4.2, hemoglobin 6.8 (decreased from TCU admit 8 Hgb), platelet 212, CMP not market appearing, CT head with chronic involutional changes of the brain and new lateral mastoiditis and interval development of chronic sinusitis, remote injury to the left maxillary sinus suspected with no acute intracranial pathology otherwise, bibasilar atelectasis versus infiltrate slightly more pronounced than prior suspicious for pneumonia. The ED patient administered normal saline, vancomycin and Zosyn. Past Medical History Past Medical History (Chronic Problems): Chronic Problems Hyperlipidemia (Chronic) Iron deficiency anemia (Chronic) GERD (gastroesophageal reflux disease) (Chronic) Dysphagia (Chronic) Coronary artery disease (Chronic) Hypertension (Chronic) Allergies famotidine [From Pepcid] Adverse Reaction (Verified 04/01/18 03:17) Low blood pressure metoclopramide [From Reglan] Adverse Reaction (Verified 04/01/18 03:17) Other Home Medications: Ambulatory Orders Medication Instructions Recorded Chlorhexidine [(None)] 15 ml PO BID 03/28/18 Docusate Sodium [COLACE LIQUID] 100 mg GT BID 03/28/18 Ferrous Sulfate Syrup 325 mg GT BID 03/28/18 Surgical History: - - LUE surgery w/ hardware, recent emergent AAA repair, trach, PEG. Psychiatric History: No pertinent psych hx Lives: Shelter Smoking Status: Never smoker Tobacco Use: Non-smoker Alcohol: None Drugs: None - *Family History Paternal History Items: - - No marked maternal or paternal family history reported including HD, DM, CA. Maternal History Items: - - No marked maternal or paternal family history reported including HD, DM, CA. Review of Systems Unable to obtain accurate/complete ROS d/t: trach Patient Problems: Active and Suspected Problems HCAP (healthcare-associated pneumonia) (Acute) Anemia (Acute) Unresponsive state (Acute) - Physical Exam General: Alert, Cooperative, No apparent distress Neurological: Cranial nerves II-XII grossly intact, Motor Exam 5/5 strength throughout Vital Signs Temp Pulse Resp BP Pulse Ox 36.0 C L 80 18 111/66 99 04/02/18 08:00 04/02/18 09:49 04/02/18 08:00 04/02/18 09:49 04/02/18 08:00 Oxygen Flow Rate (L/min) 7 Oxygen Delivery Method Trach Collar Weight: 81 kg Body Mass Index (BMI) 25.5 Intake and Output for Last 24 Hours Intake Total 825.3 / 825.3 757 / 757 Balance 825.3 / 825.3 757 / 757 Microbiology Past 72 Hours 04/01/18 22:55 Gram Stain - Final Sputum, Induced/Lukens 04/01/18 Unknown Respiratory Panel (PCR) - Preliminary Mucosa - Nasopharyngeal Laboratory Tests Past 24 Hrs WBC RBC Hgb Hct MCV MCH MCHC RDW RDW Differential Plt Count MPV Immature Gran % (Auto) Neut % (Auto) Assessment/Plan All Active Problems Abdominal aortic aneurysm, ruptured (Acute) Cardiac arrest (Acute) Anoxic encephalopathy (Acute) Acute kidney injury (Acute) Tachycardia (Acute) DIC (disseminated intravascular coagulation) (Acute) Ileus (Acute) HCAP (healthcare-associated pneumonia) (Acute) Anemia (Acute) Unresponsive state (Acute) recurrent syncope, likely vasovagal due to tube feeds rec decrease rate and flush volumes speech therapy will need trach weaning after which swallowing mechanism should return and will resolve feeding issues 04/02/18 1106 <Electronically signed by Abdullahi Styles MD> Date Abdullahi Styles MD Cosigner Signature (if applicable): Date CC: Kelton Mcclendon MD; Jack Olmedo MD Signed ELECTROENCEPHALOGRAM Observed: 04/02/2018 Status: F Source: [place] 11:06 AM [facility] REPOSITORY [facility] Pulmonary Services/Neurology [address] [place] [address] MR#: [id number] Acct: [id number] Name: NAVEEN AKINS Rep #: [id number] : 1940 78 From: Abdullahi Styles MD Referring Dr: Marisol Montiel MD Status: ADM IN Ordering Dr: Date: [id number] Sex[facility] M C - Electroencephalogram Date of service: 03/31/18 This is an 18 channel electroencephalogram performed on this 78-year-old male with mental status changes history of stroke. Hyperventilation was not performed the patient is unable to follow commands. EKG reference leads and photic simulation was performed. The recording is marred throughout by muscle artifact however background activity appears to be preserved in the 8-12 Hz range with superimposed beta range activity likely medication effect. There are no lateralizing or epileptiform changes, and photic stimulation demonstrates a normal symmetric driving response in the posterior leads. EKG is regular throughout the recording. Impression: Abnormal electroencephalogram due to the presence of beta range activity which is likely medication effect. There is significant muscle artifact throughout the recording which limits its sensitivity however there does not appear to be lateralizing or epileptiform changes. 04/02/18 1106 <Electronically signed by Abdullahi Styles MD> Date Abdullahi Styles MD CC: Marisol Montiel MD; Jack Olmedo MD; Abdullahi Styles MD Date Dictated: 04/02/18 1037 Date Transcribed: 04/02/18 1037 Senior Major Gifts Officer: NF Signed CBC W/DIFF, AUTOMATED Collected: 04/02/2018 Status: F Source: [place] 5:45 AM [facility] REPOSITORY TYPE CODE TESTS RESULT OUT OF RANGE REFERENCE UNITS LAB L100.1000 4.4-11.0 K/mm3 Low WBC 4.0 LAB L100.1200 4.6-6.2 M/mm3 Low RBC 2.60 LAB L100.1300 13.0-16.5 g/dl Low HGB 7.5 LAB L100.1400 40-54 % Low HCT 23.7 LAB L100.1500 80-94 fL Normal MCV 91.2 LAB L100.1600 27.0-32.0 pg Normal MCH 28.8 LAB L100.1700 32-36 g/gl Low MCHC 31.6 LAB L100.1810 11.6-14.6 % High RDW CV 16.8 LAB L100.1820 35.1-43.9 fl High RDW SD 53.6 LAB L100.1900 150-450 K/mm3 Normal PLT 212 LAB L100.2000 6.2-12.0 fl Normal MPV 9.4 LAB L100.2100 47-70 % Low NEUT% 43.8 LAB L100.2200 19-41 % Normal LY% 37.5 LAB L100.2300 0-10 % High MONO% 10.1 LAB L100.2400 0-5 % High EO% 8.3 LAB L100.2500 0-1 % Normal BASO% 0.3 LAB L100.2550 0.0-0.9 % Normal IM GRAN % 0.000 Result Comment: IG% - Immature Granulocytes (promyelocytes, myelocytes and metamyelocytes) > 1% indicates that a LEFT SHIFT is Present. LAB L100.2620 2.0-7.7 X10 3/uL Low Absolute Neut 1.7 LAB L100.2720 0.83-4.51 X10 3/ul Normal Absolute Lymph 1.49 Performed By: #### L100.0100 #### [facility] [address] [place], [place], [id number] BASIC METABOLIC Collected: 04/02/2018 Status: F Source: [place] PROFILE (BMP) 5:45 AM [facility] REPOSITORY TYPE CODE TESTS RESULT OUT OF RANGE REFERENCE UNITS LAB L501.0100 74-106 mg/dL Normal GLU 98 Result Comment: Please note revised GLUCOSE reference range effective 2017. LAB L501.1000 7-18 mg/dL High BUN 19 LAB L501.1100 0.70-1.30 mg/dL Normal CREAT,SERUM 1.21 Result Comment: The validity of the calculated GFR AND GFRAA in patients over 70 years has not been determined. Clinical correlation is essential. LAB L501.1110 >60 mL/min Normal EST GFR 62 Result Comment: Non- GFR Calc LAB L501.1115 >60 mL/min Normal EST GFR - AA 75 Result Comment: GFR Calc LAB L501.1255 ml/min Normal Estimated CRCL 51.95 LAB L501.1300 10-20 RATIO Normal BUN/CRE 15.7 LAB L501.2200 8.5-10 mg/dL Normal .1 CA 8.7 LAB L501.5300 136-14 mmol/L Normal 5 NA 143 LAB L501.5600 3.5-5. mmol/L Low 1 K 3.0 LAB L501.5900 98-107 mmol/L High CL 111 LAB L501.6100 21.0-3 mmol/L Normal 2.0 CO2 22.0 LAB L501.6200 5-15 Normal GAP 10 Performed By: #### L500.2500 #### [facility] [address] [facility] [place], [address] PHOSPHORUS Collected: 04/02/2018 Status: F Source: LAMPE 5:45 AM [facility] REPOSITORY Order Comment: Comments: as add on test TYPE CODE TESTS RESULT OUT OF RANGE REFERENCE UNITS LAB L501.2300 2.5-4.9 mg/dL Normal PHOS 3.6 Performed By: #### L501.2300, L501.5200 #### [facility] [address] [place], [address] MAGNESIUM Collected: 04/02/2018 Status: F Source: LAMPE 5:45 AM [facility] REPOSITORY Order Comment: Comments: as add on test TYPE CODE TESTS RESULT OUT OF RANGE REFERENCE UNITS LAB L501.5200 1.6-2.6 mg/dL Normal MG 1.6 Performed By: #### L501.2300, L501.5200 #### [facility] [address] [place], [address] Observed: 04/01/2018 Status: F Source: LAMPE CULTURE, SPUTUM 10:55 PM [facility] REPOSITORY Has pt arrived? Y Gram Stain Acceptable Specimen? Yes (<25 Epithelial cells per/lpf) Gram Stain 4+ White Blood Cells 1+ Epithelial cells 3+ Gram positive rods 2+ Gram positive cocci 1+ Gram negative rods Resp. Culture ORGANISM 1: Enterobacter cloacae complex Amount Growth 1+ Enterobacter cloacae complex: REACTION Amoxacillin/Clavulanic Acid $ >=32 R Cefazolin $ >=64 R Cefepime $ <=1 S Ceftriaxone $ >=64 R Ciprofloxacin $ <=0.25 S Ertapenim $$$ <=0.5 S Gentamicin $ <=1 S Imipenem *NF <=0.25 S Levofloxacin $ 0.5 S Piperacillin/Tazobactam $$ >=128 R Tobramycin $ <=1 S Trimethoprim/Sulfametho $ <=20 S (NF) indicates non-formulary drug at [facility]. Approval by Infectious Disease Specialist required before non-formulary drugs may be ordered and/or dispensed. Performed By: #### M100.0800 #### [facility] [address] [place] [address], [address] Observed: 04/01/2018 Status: F Source: LAMPE CULTURE, SPUTUM 12:00 PM [facility] REPOSITORY Has pt arrived? Y Gram Stain Acceptable Specimen? Acceptable Specimen(Evaluation not needed) Gram Stain 2+ White Blood Cells 1+ Gram positive cocci in chains 1+ Gram positive cocci in clusters Resp. Culture ORGANISM 1: Enterobacter cloacae complex Amount Growth 1+ Enterobacter cloacae complex: REACTION Amoxacillin/Clavulanic Acid $ >=32 R Cefazolin $ >=64 R Cefepime $ <=1 S Ceftriaxone $ >=64 R Ciprofloxacin $ <=0.25 S Ertapenim $$$ <=0.5 S Gentamicin $ <=1 S Imipenem *NF <=0.25 S Levofloxacin $ 0.5 S Piperacillin/Tazobactam $$ 64 I Tobramycin $ <=1 S Trimethoprim/Sulfametho $ <=20 S (NF) indicates non-formulary drug at [facility]. Approval by Infectious Disease Specialist required before non-formulary drugs may be ordered and/or dispensed. Performed By: #### M100.0800 #### [facility] [address] [place], [address] DISCHARGE SUMMARY Observed: 04/01/2018 Status: F Source: LAMPE 8:54 AM [facility] REPOSITORY [facility] Medical Records Department [address] [place] [address] Discharge Summary 04/01/18 0853 MR#: [id number] Acct: [id number] Name: NAVEEN AKINS Rep #: [id number] : 1940 78 From: Jh Gustafson MD PCP: Jack Olmedo MD Status: DIS IN Y Location: [place] [address] Discharge Date and Diagnosis - Problem List Patient Problems: Active and Suspected Problems HCAP (healthcare-associated pneumonia) (Acute) Anemia (Acute) Unresponsive state (Acute) Date of Admission: 03/28/18 Date of Discharge: 04/01/18 - Primary Discharge Diagnosis Active and Suspected Problems HCAP (healthcare-associated pneumonia) (Acute) Anemia (Acute) Unresponsive state (Acute) - Secondary Discharge Diagnosis Chronic Problems Hyperlipidemia (Chronic) Iron deficiency anemia (Chronic) GERD (gastroesophageal reflux disease) (Chronic) Dysphagia (Chronic) Coronary artery disease (Chronic) Hypertension (Chronic) Hospital Course and Treatment Operations: None Procedures: None Summary of Care Provided: The patient is a 78 year old Male with below past medical history hospitalized for ruptured abdominal aortic aneurysm, underwent repair 01/12/[address] Paniagua, complicated by cardiac arrest, anoxic encephalopathy, admitted [facility], then transferred to TCU for rehabilitation, strengthening, prior to tacking stitch remover care placement. Resident's prognosis is poor. Discharge to [facility] Emergency Department for evaluation and admission to Hospital. Patient Problems: Active and Suspected Problems HCAP (healthcare-associated pneumonia) (Acute) Anemia (Acute) Unresponsive state (Acute) - Physical Exam Vital Signs Temp Pulse Resp BP Pulse Ox 97.8 F 79 18 128/92 H 92 03/31/18 16:00 04/01/18 02:05 03/31/18 23:26 04/01/18 02:05 04/01/18 02:05 Oxygen Flow Rate (L/min) 6 Oxygen Delivery Method Trach Collar Weight: 73.028 kg Body Mass Index (BMI) 22.4 Intake and Output for Last 24 Hours Intake Total 2305 / 2305 1011 / 1011 Output Total Balance 2305 991 / 991 Microbiology Past 72 Hours 03/31/18 18:50 Urine Culture - Preliminary Urine, Catheterized GNR 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 Weight Bearing Status: Weight bearing as tolerated Call your doctor if you observe: Fever of 101 or Higher, Inability to urinate, Inability to have a bowel movement, Shortness of breath, Chest pain, Uncontrolled pain Home Medications: Medications to take at Discharge Chlorhexidine [(None)] 15 ml PO BID 03/28/18 Docusate Sodium [COLACE LIQUID] 100 mg GT BID 03/28/18 Ferrous Sulfate Syrup 325 mg GT BID 03/28/18 Heparin Injection 5,000 units SC BID 03/28/18 Ipratropium/Albuterol Sulfate [Duoneb] 3 ml INHALATION TID 03/28/18 Lansoprazole [Prevacid] 30 mg GT DAILY 03/28/18 Metoprolol Tartrate [Lopressor (Beta Lyric)] 12.5 mg GT BID 03/28/18 Nystatin 100,000 unit PO 4X/DAY 03/28/18 Propylene Glycol/Peg 400/Pf [Systane 0.3-0.4% Eye Drops] 1 each OP BID 03/28/18 Primary Care Physician: Jack Olmedo MD [Primary Care Provider] - Please follow up with your Primary Care Physician in: 1 week. Disposition: Acute care Hospital Minutes spent on discharge:: 30 Patient Condition:: Critical Medical Necessity - Tobacco Use Smoking Status: Never smoker Tobacco Use: Non-smoker Meaningful Use Info Meaningful Use Diagnoses (Choose all that apply): None applicable 04/01/18 0854 <Electronically signed by Jh Gustafson MD> Date Jh Gustafson MD Cosigner Signature (if applicable): Date CC: Jack Olmedo MD; Jh Gustafson MD Signed DISCHARGE INSTRUCTION Observed: 04/01/2018 Status: F Source: [place] 8:52 AM [facility] REPOSITORY [facility] Medical Records Department [address] [place] [address] Instructions for Home/Discharge Instructions 04/01/18 0850 MR#: [id number] Acct: [id number] Name: NAVEEN AKINS Rep #: [id number] : 1940 78 From: Jh Gustafson MD PCP: Jack Olmedo MD Status: DIS IN - Discharge Diagnoses Current Active Problems: Current Active and Chronic Problems HCAP (healthcare-associated pneumonia) (Acute) Anemia (Acute) Unresponsive state (Acute) You will use the following diet at home:: Other - NPO. Weight Bearing Status: Weight bearing as tolerated Call your doctor if you observe: Fever of 101 or Higher, Inability to urinate, Inability to have a bowel movement, Shortness of breath, Chest pain, Uncontrolled pain Allergies/Adverse Reactions: Allergies famotidine [From Pepcid] Adverse Reaction (Verified 04/01/18 03:17) Low blood pressure metoclopramide [From Reglan] Adverse Reaction (Verified 04/01/18 03:17) Other Medications to take at Discharge Chlorhexidine [(None)] 15 ml PO BID 03/28/18 Docusate Sodium [COLACE LIQUID] 100 mg GT BID 03/28/18 Ferrous Sulfate Syrup 325 mg GT BID 03/28/18 Heparin Injection 5,000 units SC BID 03/28/18 Ipratropium/Albuterol Sulfate [Duoneb] 3 ml INHALATION TID 03/28/18 Lansoprazole [Prevacid] 30 mg GT DAILY 03/28/18 Metoprolol Tartrate [Lopressor (Beta Lyric)] 12.5 mg GT BID 03/28/18 Nystatin 100,000 unit PO 4X/DAY 03/28/18 Propylene Glycol/Peg 400/Pf [Systane 0.3-0.4% Eye Drops] 1 each OP BID 03/28/18 Primary Care Physician: Jack Olmedo MD [Primary Care Provider] - Please follow up with your Primary Care Physician in: 1 week. Test Results: Test results from this visit will be discussed in further detail at your follow-up appointment, if applicable. Proposed Discharge Date: 04/01/18 04/01/18 0852 <Electronically signed by Jh Gustafson MD> Date Jh Gustafson MD CC: Jack Olmedo MD HISTORY AND PHYSICAL Observed: 04/01/2018 Status: F Source: LAMPE EXAM 6:02 AM [facility] REPOSITORY [facility] Medical Records Department [address] [place] [address] History and Physical 04/01/18 0420 MR#: [id number] Acct: [id number] Name: NAVEEN AKINS Rep #: [id number] : 1940 78 From: Ny Lewis PCP: Jack Olmedo MD Status: ADM IN Location: [place] [address] Problem List (1) HCAP (healthcare-associated pneumonia) Status: Acute (2) Anemia Status: Acute Qualifiers: Anemia type: unspecified type Qualified Code(s): D64.9 - Anemia, unspecified (3) Unresponsive state Status: Acute (4) Abdominal aortic aneurysm, ruptured Status: Acute (5) Anoxic encephalopathy Status: Acute (6) Hyperlipidemia Status: Chronic Qualifiers: Hyperlipidemia type: unspecified Qualified Code(s): E78.5 - Hyperlipidemia, unspecified (7) Iron deficiency anemia Status: Chronic Qualifiers: Iron deficiency anemia type: unspecified iron deficiency Qualified Code(s): D50.9 - Iron deficiency anemia, unspecified (8) GERD (gastroesophageal reflux disease) Status: Chronic Qualifiers: Esophagitis presence: esophagitis presence not specified Qualified Code(s): K21.9 - Gastro-esophageal reflux disease without esophagitis (9) Dysphagia Status: Chronic Qualifiers: Dysphagia type: oropharyngeal phase Qualified Code(s): R13.12 - Dysphagia, oropharyngeal phase (10) Coronary artery disease Status: Chronic Qualifiers: Coronary Disease-Associated Artery/Lesion type: unspecified vessel or lesion type [place] vs. transplanted heart: unspecified whether [place] or transplanted heart Associated angina: angina presence unspecified Qualified Code(s): I25.10 - Atherosclerotic heart disease of [place] coronary artery without angina pectoris (11) Hypertension Status: Chronic Qualifiers: Hypertension type: essential hypertension Qualified Code(s): I10 - Essential (primary) hypertension History of Present Illness Date of Admission: 04/01/18 Chief Complaint: Recurrent unresponsive events, more confused per family The patient is a 78 y/o M w/ PMHx: HTN, HLD, CAD, GERD, Recent prolonged hospitalization secondary to onset 01/11/18 syncope w/ L flank pain, diaphoresis and nausea with CT scan of abdomen/pelvis w/ ruptured abdominal aortic aneurysm prompting transition to 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 Discussion with family and decision to transition to the ED for further evaluation. Family also noting upon patient evaluation that he has been having increased confusion and less responsiveness baseline than he was prior and has been appearing to decline over the last 2 weeks. Family notes that he has had a chronic cough since trach and peg placement and notes that he does have frequent mucous plugging. He has also appeared more tight, wheezing than prior. He was also per report supposed to have 1 u PRBC on 04/01/18. In the ED work-up included T 97.3, heart rate 92, BP 108/69, respiratory rate 34, 96% on a trach collar, CBC with WBC set 4.2, hemoglobin 6.8 (decreased from TCU admit 8 Hgb), platelet 212, CMP not market appearing, CT head with chronic involutional changes of the brain and new lateral mastoiditis and interval development of chronic sinusitis, remote injury to the left maxillary sinus suspected with no acute intracranial pathology otherwise, bibasilar atelectasis versus infiltrate slightly more pronounced than prior suspicious for pneumonia. The ED patient administered normal saline, vancomycin and Zosyn. Past Medical History Past Medical History (Chronic Problems): Chronic Problems Hyperlipidemia (Chronic) Iron deficiency anemia (Chronic) GERD (gastroesophageal reflux disease) (Chronic) Dysphagia (Chronic) Coronary artery disease (Chronic) Hypertension (Chronic) Allergies famotidine [From Pepcid] Adverse Reaction (Verified 04/01/18 03:17) Low blood pressure metoclopramide [From Reglan] Adverse Reaction (Verified 04/01/18 03:17) Other Home Medications: Ambulatory Orders Medication Instructions Recorded Chlorhexidine [(None)] 15 ml PO BID 03/28/18 Docusate Sodium [COLACE LIQUID] 100 mg GT BID 03/28/18 Ferrous Sulfate Syrup 325 mg GT BID 03/28/18 Surgical History: - - LUE surgery w/ hardware, recent emergent AAA repair, trach, PEG. Psychiatric History: No pertinent psych hx Lives: Shelter Smoking Status: Never smoker Tobacco Use: Non-smoker Alcohol: None Drugs: None - *Family History Maternal History Items: - - No marked maternal or paternal family history reported including HD, DM, CA. Paternal History Items: - - No marked maternal or paternal family history reported including HD, DM, CA. Review of Systems Constitutional: Reports: Malaise, Weakness, Fatigue. Denies: Chills, Fever, Weight Change HEENT: Denies: Head Aches, Sinus Congestion, Sinus Drainage Cardiovascular: Denies: Chest Pain, Palpitations Respiratory: Reports: Shortness of Breath. Denies: Cough, Shortness of breath at rest, Sputum production Gastrointestinal: Denies: Abdominal Pain, Nausea, Vomiting Genitourinary: Denies: Dysuria Musculoskeletal: Reports: Back Pain. Denies: Joint Pain, Joint Tenderness Skin: Denies: Rash, Wounds Neurological: Reports: Confusion, Difficulty swallowing. Denies: Focal weakness, Numbness, Tingling Psychiatric: Denies: Anxiety, Depression, Homicidal Ideations, Suicidal Ideations Hematologic/ Lymphatic: Reports: Anemia. 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 Objective: Physical Examination: General: awake, alert, not answering orientation questions, cooperative, seated upright, improved, has been having issues w/ mucous plugging. Skin: normal color, turgor, no icterus, cyanosis. HEENT: AT/NC, EOMI, PERRLA, mildly dry MM, no carotid bruits or JVD noted. Lungs: Diminished BL BL, > bases, poor effort, no rales, ronchi or wheezing. Heart: Regular rate and rhythm; no gallop, rub audible. Abdomen: soft, PEG in place, no apparent TTP, ND, normal BS, no HSM. Extremities: no cyanosis, clubbing, or edema. Neurological: patient awake, alert, not answering orientation questions; cognitive function family notes not baseline intact, usually interactive and able to answer some orientation questions; pupils equally reactive to light and accomodation; cranial nerves II-XII difficult to assess given current status, but appear intact, moving all extremities, weakness diffusely moderately to severely globally decreased. Psychiatric: affect appears flat, staring off, no acute evidence of depressive or anxiety feelings. - Physical Exam Vital Signs Temp Pulse Resp BP Pulse Ox 97.3 F L 82 17 87/54 L 96 04/01/18 02:29 04/01/18 02:32 04/01/18 02:32 04/01/18 02:32 04/01/18 02:32 Oxygen Delivery Method Trach Collar Weight: 174 lb 9.698 oz Body Mass Index (BMI) 25.0 Laboratory Tests Past 24 Hrs WBC 4.2 L RBC 2.36 L Hgb 6.8 L Hct 21.4 L MCV 90.7 Assessment/Plan All Active Problems Abdominal aortic aneurysm, ruptured (Acute) Cardiac arrest (Acute) Anoxic encephalopathy (Acute) Acute kidney injury (Acute) Tachycardia (Acute) DIC (disseminated intravascular coagulation) (Acute) Ileus (Acute) HCAP (healthcare-associated pneumonia) (Acute) Anemia (Acute) Unresponsive state (Acute) The patient is a 78 y/o M w/ PMHx: HTN, HLD, CAD, GERD, Recent prolonged hospitalization secondary to onset 01/11/18 syncope w/ L flank pain, diaphoresis and nausea with CT scan of abdomen/pelvis w/ ruptured abdominal aortic aneurysm prompting transition to 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 Discussion with family and decision to transition to the ED for further evaluation. (1) HCAP Pneumonia: CXR in the ED w/ bilateral bibasilar atelectasis versus infiltrates although more pronounced than prior film performed recently thus suspect possible pneumonia. Patient was treated for HCAP during recent prolonged admission also. Will admit to PCU given unresponsive episodes additionally, maintain on home oxygen supplementation, continue ATC duonebs, PRN albuterol, maintained on IV Zosyn and Vancomycin, HOB, IS parameters w/ pending sputum cultures and urine antigens as well as respiratory viral panel. (2) Unresponsive Events: Unclear etiology, had notable work- up at OSH following AAA repair and serial CODE BLUE w/ ROS, will maintain on telemetry, maintain on seizure precautions, obtain neuro checks, awaiting EEG results as performed day prior, consult Neurology, CT Head not marked appearing, not candidate for MRI. Family has noted relation to his TFs and his status, will change him back to 2cal, 40 cc w/ flushes with attempts to increase further to goal pending speech and nutrition evaluation secondary to their concerns that he seems to have worsened as this TF is not available at [facility], they will purchase and bring. (3) Recent AAA, s/p repair: 01/11/2018 CT scan of abdomen/pelvis showed ruptured abdominal aortic aneurysm following which patient was intubated, transfused 4 units trauma blood, lifeflighted to [facility] and underwent 01/12/18 emergent AAA repair. (4) Anoxic Brain Injury, s/p serial CODE BLUE x 5: s/p trach, PEG secondary to severity of presentation, oropharyngeal dysphagia w/ continued TFs w/ nutrition consultation. Patient was as noted #2, having serial episodes at [facility] and LTAC w/ similar unresponsive events, awaiting EEG results as performed day prior, seizure precautions. Neurology consulted. (5) CAD: Continue regimen asa, BB, not on statin currently. (6) Normocytic Anemia, Fe Deficiency, Worsened, Recent DIC during [facility] prolonged admission: Admission Hgb 6.8, decreased from prior 8 hgb upon TCU admission, will order 1 u PRBC and repeat Hgb following. (7) Hypertension: Continue home regimen including metoprolol, PRN hydralazine. (8) Hyperlipidemia: Not on statin, defer. (9) GERD: Continue PPI. (10) Oral Thrush: Continue nystatin S/S. (11) DVT Prophylaxis: SCDs, heparin. (12) CODE status: Discussed CODE status at length with family including difference between FULL code, DNR-CCA and DNR-CC status. Following discussions about the differences in these status, requested continued FULL CODE status. Discussed quality of life and likely prolonged course of varying issues given his trach, peg, intermittent unresponsive status. Advanced Care Planning Face to Face Time: 17 minutes. Code Visit Inpatient E AND M: 70632 Init Hosp L3 Procedures: 97488 Advncd Care Plan 30 Min 04/01/18 0602 <Electronically signed by Ny Lewis > Date Ny Lewis Cosigner Signature: Date (if applicable) CC: Ny Lewis; Jack Olmedo MD Signed EMERGENCY DEPARTMENT Observed: 04/01/2018 Status: F Source: LAMPE SUMMARY 4:47 AM [facility] REPOSITORY [facility] Medical Records Department [address] [place] [address] Emergency Department Summary 04/01/18 0237 MR#: [id number] Acct: [id number] Name: NAVEEN AKINS Rep #: [id number] : 1940 78 From: Tim Fernando MD PCP: Jack Olmedo MD Status: REG ER - ER Visit Summary Date of Service: 04/01/18 Chief Complaint: Change in mental status History of Present Illness: The patient is a 78 M with rather significant complex recent medical history presents to the emergency department from the TCU with change in mental status. The patient was initially seen here the first week of January. At that time, he had a ruptured 6 cm AAA. He was life flighted to [facility]. He underwent emergency aortic grafting. His postoperative course was complicated by multiple cardiac arrests. Patient now has diagnosis of hypoxic encephalopathy. He has a trach and a PEG. He was hospitalized at an LTAC, but then had another a few bouts of cardiac arrest. He was transferred back to [facility]. It was thought that it may been secondary to a vasovagal syndrome. He was evaluated by elective physiology who did not recommend any further intervention. The patient was transferred here to our hospital 3 days ago. The family states that he has been more conversive, but does have some underlying delirium. Tonight, he had an episode where he was more unresponsive. He did not lose pulses. There is been no recent change in medications. Physical Examination: Afebrile, vitals unremarkable. Male who appears older than stated age. Patient does not follow commands. Head is normocephalic. Pupils are equal round reactive. Neck is supple. Trach is intact. No purulent drainage. Lungs are diminished in the bases. Abdomen is soft, mildly tender without rebound or guarding, incision is clean dry and intact. The patient moves all 4 extremities. His examination is nonfocal. Test Results: [] Emergency Department Course and Treatment: The patient has underlying hypoxic encephalopathy. He has had worsening mental status and what sounds like delirium. Metabolic workup was pursued. His head CT was unchanged. Screening labs do demonstrate anemia and leukopenia. His x-ray is concerning for a right lower lobe infiltrate and definite looks worse than it did 2 days ago. Patient has a significant history of aspiration. He actually had aspiration pneumonia [facility]. He is afebrile here. I do feel that this patient is going to require IV antibiotics and further evaluation including neurology consult given his repeated delirium and what sounds like central apneic episodes. Patient was discussed with the hospitalist. Treatment Plan: [] Disposition: Admission Impression: 1. Delirium 2. Aspiration pneumonia This note was generated with Platypi dictation software. It may contain incorrect words, spelling, and punctuation that were not noted in review of the chart prior to signing ED Disposition - Plan for ED Patient: Chief Complaint: Alt LOC Referrals: Jack Olmedo MD [Primary Care Provider] - What to do if you have Problems For any increased pain, shortness of breath, bleeding, nausea or vomiting, chest pain, or any unexpected problems, contact your Primary Care Provider. Call [facility] ([phone]) or report to the closest Emergency Room. Call 911 if necessary. 04/01/18 0447 <Electronically signed by Tim Fernando MD> Date Tim Fernando MD Cosigner Signature (If Indicated): Date CC: Jack Olmedo MD TYPE AND SCREEN Collected: 04/01/2018 Status: F Source: [place] 4:04 AM [facility] REPOSITORY Order Comment: CMV NEG? N Number of units to transfuse: 1 Reason for Ordering Blood: Acute Are the blood/blood products to be transfused? Y Is the patient having/had surgery? N Give When? When Ready Irradiated? N Leukodepleted? Y TYPE CODE TESTS RESULT OUT OF RANGE REFERENCE UNITS LAB B10.0800 O Normal BLOOD TYPE GEL POSITIVE LAB B100.4000 Normal Antibody NEGATIVE Screen Performed By: #### B101.7450 #### [facility] [address] [place], [address] RC Collected: 04/01/2018 Status: F Source: [place] 4:04 AM [facility] REPOSITORY TYPE CODE TESTS RESULT OUT OF REFERENCE UNITS RANGE LAB U100.0000 [id number] TRANSFUSED PRODUCT: T AND S with Crossmatch, Red Cells COUNT: 1 Performed By: #### U100.0000 #### [facility] - refer to report for specific site RC Collected: 04/01/2018 Status: F Source: [place] 4:04 AM [facility] REPOSITORY TYPE CODE TESTS RESULT OUT OF REFERENCE UNITS RANGE LAB U100.0000 [id number] TRANSFUSED PRODUCT: T AND S with Crossmatch, Red Cells COUNT: 1 Performed By: #### U100.0000 #### [facility] - refer to report for specific site CBC W/DIFF, AUTOMATED Collected: 04/01/2018 Status: F Source: [place] 2:58 AM [facility] REPOSITORY TYPE CODE TESTS RESULT OUT OF RANGE REFERENCE UNITS LAB L100.1000 4.4-11.0 K/mm3 Low WBC 4.2 LAB L100.1200 4.6-6.2 M/mm3 Low RBC 2.36 LAB L100.1300 13.0-16.5 g/dl Low HGB 6.8 LAB L100.1400 40-54 % Low HCT 21.4 LAB L100.1500 80-94 fL Normal MCV 90.7 LAB L100.1600 27.0-32.0 pg Normal MCH 28.8 LAB L100.1700 32-36 g/gl Low MCHC 31.8 LAB L100.1810 11.6-14.6 % High RDW CV 17.0 LAB L100.1820 35.1-43.9 fl High RDW SD 53.9 LAB L100.1900 150-450 K/mm3 Normal PLT 212 LAB L100.2000 6.2-12.0 fl Normal MPV 8.8 LAB L100.2100 47-70 % Normal NEUT% 49.1 LAB L100.2200 19-41 % Normal LY% 34.1 LAB L100.2300 0-10 % Normal MONO% 10.0 LAB L100.2400 0-5 % High EO% 6.4 LAB L100.2500 0-1 % Normal BASO% 0.2 LAB L100.2550 0.0-0.9 % Normal IM GRAN % 0.200 Result Comment: IG% - Immature Granulocytes (promyelocytes, myelocytes and metamyelocytes) > 1% indicates that a LEFT SHIFT is Present. LAB L100.2620 2.0-7.7 X10 3/uL Normal Absolute Neut 2.1 LAB L100.2720 0.83-4.51 X10 3/ul Normal Absolute Lymph 1.44 Performed By: #### L100.0100 #### [facility] [address] [place], [place], [address] COMPREHENSIVE METABOLIC Collected: 04/01/2018 Status: F [facility] REPOS[facility] TYPE CODE TESTS RESULT OUT OF RANGE REFERENCE UNITS LAB L501.0100 74-106 mg/dL Normal GLU 92 Result Comment: Please note revised GLUCOSE reference range effective 2017. LAB L501.1000 7-18 mg/dL High BUN 25 LAB L501.1100 0.70-1.30 mg/dL Normal CREAT,SERUM 1.27 Result Comment: The validity of the calculated GFR AND GFRAA in patients over 70 years has not been determined. Clinical correlation is essential. LAB L501.1110 >60 mL/min Low EST GFR 58 Result Comment: Non- GFR Calc LAB L501.1115 >60 mL/min Normal EST GFR - AA 71 Result Comment: GFR Calc LAB L501.1255 ml/min Normal Estimated CRCL 49.50 LAB L501.1300 10-20 RATIO Normal BUN/CRE 19.7 LAB L501.1500 6.4-8. g/dL Normal 2 T PROT 6.8 LAB L501.1800 3.2-5. g/dL Low 0 ALB 2.3 LAB L501.1950 2.2-4. g/dL High 2 GLOB 4.5 LAB L501.2000 0.9-2. RATIO Low 4 A/G 0.5 LAB L501.2200 8.5-10 mg/dL Normal .1 CA 9.0 LAB L501.4100 15-37 U/L Normal AST 21 LAB L501.4305 45-117 U/L Normal ALK P 112 LAB L501.4405 16-61 U/L Normal ALT 18 LAB L501.4600 0.20-1 mg/dL Normal .00 T BILI 0.80 LAB L501.5300 136-14 mmol/L Normal 5 NA 142 LAB L501.5600 3.5-5. mmol/L Normal 1 K 3.9 LAB L501.5900 98-107 mmol/L High CL 109 LAB L501.6100 21.0-3 mmol/L Normal 2.0 CO2 25.0 LAB L501.6200 5-15 Normal GAP 8 Performed By: #### L500.4050 #### [facility] [address] [place], [address] PHOSPHORUS Collected: 04/01/2018 Status: F Source: [place] 2:58 AM [facility] REPOSITORY TYPE CODE TESTS RESULT OUT OF RANGE REFERENCE UNITS LAB L501.2300 2.5-4.9 mg/dL Normal PHOS 3.1 Performed By: #### L501.2300, L501.5200 #### [facility] [address] [place], [address] MAGNESIUM Collected: 04/01/2018 Status: F Source: [place] 2:58 AM [facility] REPOSITORY TYPE CODE TESTS RESULT OUT OF RANGE REFERENCE UNITS LAB L501.5200 1.6-2.6 mg/dL Normal MG 1.7 Performed By: #### L501.2300, L501.5200 #### [facility] [address] [place], [address] CHEST 1 VIEW Observed: 04/01/2018 Status: F Source: [place] (PORTABLE) 2:38 AM [facility] REPOSITORY [facility] Imaging Services [address] [place] [address] Chest 1 View (Portable) MR#: [id number] Acct: [id number] Name: NAVEEN AKINS Kaylah Rep #: [id number] : 1940 78 From: Santa Travis MD PCP: Honorio LOREDO,Jack Status: REG ER Study: Chest 1 View (Portable) Date of Exam: 04/01/18 Exam# [id number] Ordering Dr: Tim Fernando MD STUDY: X-RAY CHEST REASON FOR EXAM: Male, 78 years old. Altered mental status TECHNIQUE: Single AP portable view of the chest. Images marked best images possible COMPARISON: March 29 and 2017 FINDINGS: Tracheostomy catheter in stable position. There are superimposed monitor leads. There is diffuse interstitial disease in the lung bases with compression of the basilar parenchyma. Mild elevation of the right hemidiaphragm. Small metallic density over the right medial upper lobe is stable. There is no demonstrated pleural abnormality. Normal size heart. Normal mediastinum and maximilian. Normal visualized pulmonary arteries. There is atherosclerotic calcification of the aortic arch with tortuosity. Obscured thoracic spine. Normal visualized ribs, clavicles, and shoulders. There is no demonstrated abnormality of the visualized soft tissue structures of the upper abdomen. RAD/Chest 1 View (Portable) IMPRESSION: Suspect bibasilar atelectasis and or infiltrates, slightly more pronounced on current examination. Electronically Signed: Santa Travis MD at 3:23 EDT , Service support , CC: Jack Olmedo MD; Tim Fernando MD Senior Major Gifts Officer: Signed BRAIN/HEAD WITHOUT Observed: 04/01/2018 Status: F Source: [place] CONTRAST 2:38 AM [facility] REPOSITORY [facility] Imaging Services [facility] [place] [address] [address] Brain/Head without Contrast MR#: [id number] Acct: [id number] Name: NAVEEN AKINS Rep #: [id number] : 1940 [facility] From: Santa Travis MD PCP: Honorio LOREDO,Jack Status: REG ER Study: Brain/Head without Contrast Date of Exam: 04/01/18 Exam# [id number] Ordering Dr: Tim Fernando MD STUDY: CT BRAIN WITHOUT CONTRAST REASON FOR EXAM: Male, 78 years old. Change in mental status, patient became unresponsive. History of hypertension, CAD, hypoxic encephalopathy RADIATION DOSAGE (If Supplied By Facility): CTDIvol = ( 44.99 ) mGy, DLP = ( 779.24 ) mGycm TECHNIQUE: Transaxial CT imaging of the brain was performed without administration of intravenous contrast material. Individualized dose optimization techniques were used for this CT. COMPARISON: CT brain noncontrast 04/02/2016. FINDINGS: Normal soft tissue structures. Normal calvarium. There is mild cerebral atrophy with widening of the extra- axial spaces and ventricular dilatation. There are areas of decreased attenuation within the white matter tracts of the supratentorial brain, consistent with microvascular disease changes. Remote left lacunar infarct. Normal brainstem. Normal cerebellum. There is no intracranial hemorrhage. There are no findings of an acute ischemic infarction. Gaffney opacification right sphenoid sinus, mucosal thickening left maxillary sinus. New opacification of the bilateral inferior mastoid air cells. Fracture through the anterior and posterior lateral left maxillary antrum, not included on previous examination. No adjacent soft tissue swelling. CT/Brain/Head without Contrast IMPRESSION: Chronic involutional changes of the brain. New lateral mastoiditis and interval development of chronic sinusitis. Remote injury to the left maxillary sinus suspected. There is no acute intracranial pathology. Electronically Signed: Santa Travis MD at 4:01 EDT , Service support , CC: Jack Olmedo MD; Tim Fernando MD Senior Major Gifts Officer: Signed BEDSIDE GLUCOSE Collected: 04/01/2018 Status: F Source: [place] 2:03 AM [facility] REPOSITORY TYPE CODE TESTS RESULT OUT OF REFERENCE UNITS RANGE LAB L501.080 70-110 mg/dL High BEDSIDE GLU 121 Result Comment: MANAGEMENT OF PATIENT CARE PER NURSING PROTOCOL Performed By: #### L501.080 #### [facility] [address] [place], [place] [address] Observed: 04/01/2018 Status: F Source: [place] RESPIRATORY PANEL 12:00 AM [facility]LECULAR REPOSITORY RP PANEL ADENOVIRUS Not Detected HUMAN METAPHNEUMO Not Detected INFLUENZA A Not Detected INFLUENZA A (SUBTYPE H1) Not Detected INFLUENZA A (SUBTYPE H3) Not Detected INFLUENZA B Not Detected PARAINFLUENZA 1 Not Detected PARAINFLUENZA 2 Not Detected PARAINFLUENZA 3 Not Detected PARAINFLUENZA 4 Not Detected RHINOVIRUS Not Detected RSV A Not Detected RSV B Not Detected NAAT METHOD Testing was performed using nucleic acid amplification Performed By: #### M100.638 #### [facility] [address] [facility] [place], [place], [address] URINALYSIS, COMPLETE Collected: 03/31/2018 Status: F Source: [facility] [facility] Order Comment: How was Urine Obtained? CATHETER SPECIMEN TYPE CODE TESTS RESULT OUT OF RANGE REFERENCE UNITS LAB L400.3000 Yellow COLOR Normal Yellow LAB L400.3050 Clear Normal CLARITY Sl. Cloudy LAB L400.3200 Normal mg/dl Normal GLUCOSE, UR Normal LAB L400.3300 Negative mg/dL Normal BILIRUBIN URINE Negative LAB L400.3400 Negative mg/dl Normal KETONE UR Negative LAB L400.3465 1.002-1.030 Normal SP.GR. DIPSTX 1.015 LAB L400.3550 5.0 - 8.0 pH UR Normal 6.0 LAB L400.3600 Negative mg/dl High PROT 15 DIPSTX LAB L400.3700 Normal mg/dl High 1 UROBILI LAB L400.3750 Negative Normal NITRITE UR Negative LAB L400.3780 Negative /ul High 10 OCCULT BLOOD-UR LAB L400.3800 Negative /ul LEUK Normal ESTERASE Negative LAB L400.4050 0-5 /hpf WBC 0 Normal SEEN LAB L400.4100 0-5 /hpf Normal RBC-UA 0-5 SEEN LAB L400.4150 0-5 /hpf SQUAM Normal EPI 0-5 SEEN LAB L400.4300 None Seen /hpf 0 Normal BACTERIA SEEN LAB L400.4350 <or=2+ /hpf 0 Normal MUCUS, URINE SEEN Performed By: #### L400.0001 #### [facility] [address] [place], [address] Observed: 03/31/2018 Status: F Source: [place] CULTURE, URINE 6:50 PM [facility] REPOSITORY Urine Culture RESULTS CALLED TO /NURSE LINE 04/03/18 0936 Agata Venegas. Copy of report sent to Infection Control Printer [id number] 04/03/18 0937 OJ. ORGANISM 1: Enterobacter cloacae complex [place] Count 11,000-25,000 ORGANISM 2: Vancomycin Resist. E. faecilis [place] Count 1000-10,000 Enterobacter cloacae complex: REACTION Amikacin $ <=2 S Amoxacillin/Clavulanic Acid $ >=32 R Aztreonam $$$ 8 S Cefazolin $ >=64 R Cefepime $ <=1 S Ceftriaxone $ >=64 R Ciprofloxacin $ 1 S Ertapenim $$$ 1 S Gentamicin $ <=1 S Imipenem *NF <=0.25 S Levofloxacin $ 4 I Meropenem $ <=0.25 S Nitrofurantoin $ 128 R Piperacillin/Tazobactam $$ >=128 R Tobramycin $ <=1 S Trimethoprim/Sulfametho $ <=20 S (NF) indicates non-formulary drug at [facility]. Approval by Infectious Disease Specialist required before non-formulary drugs may be ordered and/or dispensed. Enterobacter cloacae complex: REACTION Amoxacillin/Clavulanic Acid $ >=32 R Cefazolin $ >=64 R Cefepime $ <=1 R Ceftriaxone $ 32 R Ciprofloxacin $ 1 S Gentamicin $ <=1 S Imipenem *NF <=0.25 S Levofloxacin $ 4 I Nitrofurantoin $ 128 R Piperacillin/Tazobactam $$ 64 R Tobramycin $ <=1 S Trimethoprim/Sulfametho $ <=20 S (NF) indicates non-formulary drug at [facility]. Approval by Infectious Disease Specialist required before non-formulary drugs may be ordered and/or dispensed. Vancomycin Resist. E. faecilis: REACTION Ampicillin $ <=2 S Benzylpenicillin NF 8 S Ciprofloxacin $ >=8 R Gentamicin SYN-R R Levofloxacin $ >=8 R Linezolid $$$$ 1 S Nitrofurantoin $ <=16 S Streptomycin $ SYN-S S Tetracycline NF >=16 R Vancomycin $ >=32 R (NF) indicates non-formulary drug at [facility]. Approval by Infectious Disease Specialist required before non-formulary drugs may be ordered and/or dispensed. * CLSI guidelines does not recommend testing of cephalosporins. This interpretation is deduced from Beta-lactam/penicillin results. Performed By: #### M100.0650 #### [facility] [address] [place], [place], [address] CBC W/DIFF, AUTOMATED Collected: 03/31/2018 Status: F Source: [place] 4:35 PM [facility] REPOSITORY TYPE CODE TESTS RESULT OUT OF RANGE REFERENCE UNITS LAB L100.1000 4.4-11.0 K/mm3 Normal WBC 4.6 LAB L100.1200 4.6-6.2 M/mm3 Low RBC 2.69 LAB L100.1300 13.0-16.5 g/dl Low HGB 7.5 LAB L100.1400 40-54 % Low HCT 23.7 LAB L100.1500 80-94 fL Normal MCV 88.1 LAB L100.1600 27.0-32.0 pg Normal MCH 27.9 LAB L100.1700 32-36 g/gl Low MCHC 31.6 LAB L100.1810 11.6-14.6 % High RDW CV 17.1 LAB L100.1820 35.1-43.9 fl High RDW SD 55.6 LAB L100.1900 150-450 K/mm3 Normal PLT 186 LAB L100.2000 6.2-12.0 fl Normal MPV 9.0 LAB L100.2100 47-70 % Normal NEUT% 47.3 LAB L100.2200 19-41 % Normal LY% 38.7 LAB L100.2300 0-10 % Normal MONO% 7.9 LAB L100.2400 0-5 % High EO% 5.9 LAB L100.2500 0-1 % Normal BASO% 0.2 LAB L100.2550 0.0-0.9 % Normal IM GRAN % 0.000 Result Comment: IG% - Immature Granulocytes (promyelocytes, myelocytes and metamyelocytes) > 1% indicates that a LEFT SHIFT is Present. LAB L100.2620 2.0-7.7 X10 3/uL Normal Absolute Neut 2.2 LAB L100.2720 0.83-4.51 X10 3/ul Normal Absolute Lymph 1.76 Performed By: #### L100.0100 #### [facility] [address] [place], [address] BASIC METABOLIC Collected: 03/31/2018 Status: F Source: [place] PROFILE ([facility]) 4:35 PM [facility] REPOSITORY TYPE CODE TESTS RESULT OUT OF RANGE REFERENCE UNITS LAB L501.0100 74-106 mg/dL Normal GLU 99 Result Comment: Please note revised GLUCOSE reference range effective 2017. LAB L501.1000 7-18 mg/dL High BUN 23 LAB L501.1100 0.70-1.30 mg/dL Normal CREAT,SERUM 1.20 Result Comment: The validity of the calculated GFR AND GFRAA in patients over 70 years has not been determined. Clinical correlation is essential. LAB L501.1110 >60 mL/min Normal EST GFR 62 Result Comment: Non- GFR Calc LAB L501.1115 >60 mL/min Normal EST GFR - AA 75 Result Comment: GFR Calc LAB L501.1255 ml/min Normal Estimated CRCL 52.40 LAB L501.1300 10-20 RATIO Normal BUN/CRE 19.2 LAB L501.2200 8.5-10 mg/dL Normal .1 CA 8.7 LAB L501.5300 136-14 mmol/L Normal 5 NA 140 LAB L501.5600 3.5-5. mmol/L Low 1 K 3.4 LAB L501.5900 98-107 mmol/L High CL 111 LAB L501.6100 21.0-3 mmol/L Normal 2.0 CO2 22.0 LAB L501.6200 5-15 Normal GAP 7 Performed By: #### L500.2500 #### [facility] [address] [facility] [place], [address] CHEST 1 VIEW Observed: 03/31/2018 Status: F Source: [place] (PORTABLE) 4:00 PM [facility] REPOSITORY [facility] Imaging Services [address] [place] [address] Chest 1 View (Portable) MR#: [id number] Acct: [id number] Name: NAVEEN AKINS Rep #: [id number] : 1940 78 From: Santa Travis MD PCP: Jack Olmedo MD Status: ADM IN Study: Chest 1 View (Portable) Date of Exam: 03/31/18 Exam# [id number] Ordering Dr: Jh Gustafson MD STUDY: X-RAY CHEST REASON FOR EXAM: Male, 78 years old. Tachypnea, cough, trach TECHNIQUE: Single AP portable view of the chest. COMPARISON: 03/29/2018 FINDINGS: Tracheostomy catheter tip remains over superior to the kianna in stable position. Stable metallic density right medial upper abdomen. Compression of basilar parenchyma, probable atelectasis left base.. There is no demonstrated pleural abnormality. Normal size heart. Normal mediastinum and maximilian. Normal visualized pulmonary arteries. There is atherosclerotic calcification of the aortic arch with tortuosity. There are diffuse degenerative changes of the visualized thoracic spine. There is degenerative osteoarthritis of the bilateral shoulders. Status post ORIF left humerus. Deformity of the right scapula is stable. There is no demonstrated abnormality of the visualized soft tissue structures of the upper abdomen. RAD/Chest 1 View (Portable) IMPRESSION: Tracheostomy catheter in good position. Compression of basilar parenchyma, atelectasis possible early infiltrate particularly in the left base. Prior surgical intervention and likely posttraumatic changes. Electronically Signed: Santa Travis MD at 4:27 EDT , Service support , CC: Jack Olmedo MD; Jh Gustafson MD Senior Major Gifts Officer: Signed ABDOMEN SINGLE VIEW Observed: 03/31/2018 Status: F Source: [place] (PORTABLE) 4:00 PM [facility] REPOSITORY [facility] Imaging Services [address] [place] [address] Abdomen Single View (Portable) MR#: [id number] Acct: [id number] Name: NAVEEN AKINS Rep #: [id number] : 1940 78 From: Santa Travis MD PCP: Jack Olmedo MD Status: ADM IN Study: Abdomen Single View (Portable) Date of Exam: 03/31/18 Exam# [id number] Ordering Dr: Jh Gustafson MD STUDY: X-RAY - ABDOMEN/PELVIS REASON FOR EXAM: Male, 78 years old. Recently had ruptured AAA, became agitated. TECHNIQUE: Single AP view of the abdomen / pelvis. Portable COMPARISON: CT abdomen and pelvis 01/11/2018. FINDINGS: There is an unremarkable bowel gas pattern. There is no demonstrated free abdominal air supine image. Surgical changes left abdomen corresponding to provided history. Normal soft tissue structures. There are diffuse degenerative changes of the visualized lumbar spine. Levoscoliosis. RAD/Abdomen Single View (Portable) IMPRESSION: Normal x-ray examination of the abdomen and pelvis. Other nonacute findings as outlined above. Electronically Signed: Santa Travis MD at 4:31 EDT , Service support , CC: Jack Olmedo MD; Jh Gustafson MD Senior Major Gifts Officer: Signed BEDSIDE GLUCOSE Collected: 03/31/2018 Status: F Source: [place] 7:14 AM [facility] REPOSITORY TYPE CODE TESTS RESULT OUT OF RANGE REFERENCE UNITS LAB L501.080 70-110 mg/dL Normal BEDSIDE GLU 104 Result Comment: MANAGEMENT OF PATIENT CARE PER NURSING PROTOCOL Performed By: #### L501.080 #### [facility] Point of Care [address] [place] [address] HH, HEMOGLOBIN AND Collected: 03/31/2018 Status: F Source: [place] HEMATOCRIT 6:54 AM [facility] REPOSITORY TYPE CODE TESTS RESULT OUT OF RANGE REFERENCE UNITS LAB L100.1300 13.0-16.5 g/dl Low HGB 7.3 LAB L100.1400 40-54 % Low HCT 22.5 Performed By: #### L100.0600 #### [facility] [address] [place], [address] BEDSIDE GLUCOSE Collected: 03/30/2018 Status: F Source: [place] 9:39 AM [facility] REPOSITORY TYPE CODE TESTS RESULT OUT OF RANGE REFERENCE UNITS LAB L501.080 70-110 mg/dL Normal BEDSIDE GLU 109 Result Comment: MANAGEMENT OF PATIENT CARE PER NURSING PROTOCOL Performed By: #### L501.080 #### [facility] Point of Care [address] [place] [address] BEDSIDE GLUCOSE Collected: 03/30/2018 Status: F Source: [place] 6:56 AM [facility] REPOSITORY TYPE CODE TESTS RESULT OUT OF RANGE REFERENCE UNITS LAB L501.080 70-110 mg/dL Normal BEDSIDE GLU 101 Result Comment: MANAGEMENT OF PATIENT CARE PER NURSING PROTOCOL Performed By: #### L501.080 #### [facility] [place] [address] CBC W/DIFF, AUTOMATED Collected: 03/30/2018 Status: F Source: [place] 5:35 AM [facility] REPOSITORY TYPE CODE TESTS RESULT OUT OF RANGE REFERENCE UNITS LAB L100.1000 4.4-11.0 K/mm3 Low WBC 4.0 LAB L100.1200 4.6-6.2 M/mm3 Low RBC 2.61 LAB L100.1300 13.0-16.5 g/dl Low HGB 7.4 LAB L100.1400 40-54 % Low HCT 23.1 LAB L100.1500 80-94 fL Normal MCV 88.5 LAB L100.1600 27.0-32.0 pg Normal MCH 28.4 LAB L100.1700 32-36 g/gl Normal MCHC 32.0 LAB L100.1810 11.6-14.6 % High RDW CV 17.3 LAB L100.1820 35.1-43.9 fl High RDW SD 56.5 LAB L100.1900 150-450 K/mm3 Normal PLT 199 LAB L100.2000 6.2-12.0 fl Normal MPV 9.2 LAB L100.2100 47-70 % Normal NEUT% 59.1 LAB L100.2200 19-41 % Normal LY% 25.8 LAB L100.2300 0-10 % Normal MONO% 7.7 LAB L100.2400 0-5 % High EO% 7.2 LAB L100.2500 0-1 % Normal BASO% 0.2 LAB L100.2550 0.0-0.9 % Normal IM GRAN % 0.000 Result Comment: IG% - Immature Granulocytes (promyelocytes, myelocytes and metamyelocytes) > 1% indicates that a LEFT SHIFT is Present. LAB L100.2620 2.0-7.7 X10 3/uL Normal Absolute Neut 2.4 LAB L100.2720 0.83-4.51 X10 3/ul Normal Absolute Lymph 1.04 Performed By: #### L100.0100 #### [facility] [address] [place], [place], [address] BASIC METABOLIC Collected: 03/30/2018 Status: F Source: [place] PROFILE (BMP) 5:35 AM [facility] REPOSITORY TYPE CODE TESTS RESULT OUT OF RANGE REFERENCE UNITS LAB L501.0100 74-106 mg/dL High GLU 107 Result Comment: Fasting Glucose result from 100 to 125 mg/dL suggests IMPAIRED HOMEOSTASIS per A.D.A. criteria. Please note revised GLUCOSE reference range effective 2017. LAB L501.1000 7-18 mg/dL High BUN 31 LAB L501.1100 0.70-1.30 mg/dL High CREAT,SERUM 1.56 Result Comment: The validity of the calculated GFR AND GFRAA in patients over 70 years has not been determined. Clinical correlation is essential. LAB L501.1110 >60 mL/min Low EST GFR 46 Result Comment: Non- GFR Calc LAB L501.1115 >60 mL/min Low EST GFR - AA 56 Result Comment: GFR Calc LAB L501.1255 ml/min Normal Estimated CRCL 40.31 LAB L501.1300 10-20 RATIO Normal BUN/CRE 19.9 LAB L501.2200 8.5-10 mg/dL Normal .1 CA 9.5 LAB L501.5300 136-14 mmol/L Normal 5 NA 139 LAB L501.5600 3.5-5. mmol/L Normal 1 K 3.7 LAB L501.5900 98-107 mmol/L Normal CL 106 LAB L501.6100 21.0-3 mmol/L Normal 2.0 CO2 23.0 LAB L501.6200 5-15 Normal GAP 10 Performed By: #### L500.2500 #### [facility] [address] [place], [place], [address] BEDSIDE GLUCOSE Collected: 03/30/2018 Status: F Source: [place] 4:55 AM [facility] REPOSITORY TYPE CODE TESTS RESULT OUT OF REFERENCE UNITS RANGE LAB L501.080 70-110 mg/dL High BEDSIDE GLU 115 Result Comment: MANAGEMENT OF PATIENT CARE PER NURSING PROTOCOL Performed By: #### L501.080 #### [facility] Point of Care [address] [place] [address] BEDSIDE GLUCOSE Collected: 03/30/2018 Status: F Source: [place] 3:22 AM [facility] REPOSITORY TYPE CODE TESTS RESULT OUT OF REFERENCE UNITS RANGE LAB L501.080 70-110 mg/dL High BEDSIDE GLU 117 Result Comment: MANAGEMENT OF PATIENT CARE PER NURSING PROTOCOL Performed By: #### L501.080 #### [facility] Point of Care [address] [place] [address] BEDSIDE GLUCOSE Collected: 03/30/2018 Status: F Source: [place] 12:52 AM [facility] REPOSITORY TYPE CODE TESTS RESULT OUT OF REFERENCE UNITS RANGE LAB L501.080 70-110 mg/dL High BEDSIDE GLU 112 Result Comment: MANAGEMENT OF PATIENT CARE PER NURSING PROTOCOL Performed By: #### L501.080 #### [facility] Point of Care [address] [place] [address] TROPONIN-I Collected: 03/29/2018 Status: F Source: [place] 9:48 AM [facility] REPOSITORY TYPE CODE TESTS RESULT OUT OF RANGE REFERENCE UNITS LAB L501.4010 <0.045 ng/mL Normal < 0.015 TROPONIN-I Result Comment: TROPONIN-I EXPECTED VALUES <0.045 Negative 0.045 - 0.590 Consistent with Cardiac Damage > OR = 0.600 Critical Value Not every elevated troponin is indicative of VT. These values should be used with clinical judgement in examining the patient's clinical picture for diagnosis. To establish a diagnosis of VT versus myocardial injury, there must be a demonstrated rise and/or fall in the troponin values, in addition to ischemic symptoms, EKG changes, new regional wall motion abnormality, and/or angiographical evidence. PLEASE NOTE: REFERENCE RANGES EDITED 17 Performed By: #### L501.4010 #### [facility] [address] [place], [place], [address] CHEST 1 VIEW Observed: 03/29/2018 Status: F Source: [place] (PORTABLE) 9:40 AM [facility] REPOSITORY [facility] Imaging Services [address] [place] [address] Chest 1 View (Portable) MR#: [id number] Acct: [id number] Name: NAVEEN AKINS Rep #: [id number] : 1940 M 78 From: Bertrand Steel MD PCP: Jack Olmedo MD Status: ADM IN Study: Chest 1 View (Portable) Date of Exam: 03/29/18 Exam# [id number] Ordering Dr: Darrell Gomez MD STUDY: X-RAY CHEST REASON FOR EXAM: Male, 78 years old. Dyspnea and increasing shortness of breath. TECHNIQUE: Single AP portable view of the chest. COMPARISON: Comparison is made with prior examination January 22, 2018. FINDINGS: A tracheostomy tube is in situ. The tip is at 3.3 cm proximal to the kianna. Increased markings at the lung bases with Cough is worse in the left lower lobe suggestive of bibasilar atelectasis and/or early infiltrates. Blunting of left costophrenic angle. Normal size heart. Normal mediastinum and maximilian. Normal visualized pulmonary arteries. There is atherosclerotic calcification of the aortic arch with tortuosity. Normal visualized thoracic spine. Normal visualized ribs, clavicles, and shoulders. There is no demonstrated abnormality of the visualized soft tissue structures of the upper abdomen. RAD/Chest 1 View (Portable) IMPRESSION: Findings suggesting bibasilar atelectasis and/or early infiltrates worse on the left side. There is blunting of the left costophrenic angle. Follow-up is recommended. Electronically Signed: Bertrand Steel MD at 10:10 EDT Tel [phone], Service support , CC: Jack Olmedo MD; Darrell Gomez MD Senior Major Gifts Officer: Signed BEDSIDE GLUCOSE Collected: 03/29/2018 Status: F Source: [place] 9:35 AM [facility] REPOSITORY TYPE CODE TESTS RESULT OUT OF REFERENCE UNITS RANGE LAB L501.080 70-110 mg/dL High BEDSIDE GLU 122 Result Comment: MANAGEMENT OF PATIENT CARE PER NURSING PROTOCOL Performed By: #### L501.080 #### [facility] Point of Care [address] [place], [place] [id number] BEDSIDE GLUCOSE Collected: 03/29/2018 Status: F Source: [place] 6:54 AM [facility] REPOSITORY TYPE CODE TESTS RESULT OUT OF RANGE REFERENCE UNITS LAB L501.080 70-110 mg/dL Normal BEDSIDE GLU 106 Result Comment: MANAGEMENT OF PATIENT CARE PER NURSING PROTOCOL Performed By: #### L501.080 #### [facility] Point of Care [address] [place] [address] CBC W/DIFF, AUTOMATED Collected: 03/29/2018 Status: F Source: [place] 5:20 AM [facility] REPOSITORY TYPE CODE TESTS RESULT OUT OF RANGE REFERENCE UNITS LAB L100.1000 4.4-11.0 K/mm3 Normal WBC 7.2 LAB L100.1200 4.6-6.2 M/mm3 Low RBC 2.83 LAB L100.1300 13.0-16.5 g/dl Low HGB 8.0 LAB L100.1400 40-54 % Low HCT 25.5 LAB L100.1500 80-94 fL Normal MCV 90.1 LAB L100.1600 27.0-32.0 pg Normal MCH 28.3 LAB L100.1700 32-36 g/gl Low MCHC 31.4 LAB L100.1810 11.6-14.6 % High RDW CV 16.8 LAB L100.1820 35.1-43.9 fl High RDW SD 52.7 LAB L100.1900 150-450 K/mm3 Normal PLT 239 LAB L100.2000 6.2-12.0 fl Normal MPV 9.4 LAB L100.2100 47-70 % Normal NEUT% 67.5 LAB L100.2200 19-41 % Normal LY% 24.2 LAB L100.2300 0-10 % Normal MONO% 5.6 LAB L100.2400 0-5 % Normal EO% 2.5 LAB L100.2500 0-1 % Normal BASO% 0.1 LAB L100.2550 0.0-0.9 % Normal IM GRAN % 0.100 Result Comment: IG% - Immature Granulocytes (promyelocytes, myelocytes and metamyelocytes) > 1% indicates that a LEFT SHIFT is Present. LAB L100.2620 2.0-7.7 X10 3/uL Normal Absolute Neut 4.8 LAB L100.2720 0.83-4.51 X10 3/ul Normal Absolute Lymph 1.74 Performed By: #### L100.0100 #### [facility] [address] [place], [address] BASIC METABOLIC Collected: 03/29/2018 Status: F Source: [place] PROFILE (BMP) 5:20 AM [facility] REPOSITORY TYPE CODE TESTS RESULT OUT OF RANGE REFERENCE UNITS LAB L501.0100 74-106 mg/dL Normal GLU 102 Result Comment: Fasting Glucose result from 100 to 125 mg/dL suggests IMPAIRED HOMEOSTASIS per A.D.A. criteria. Please note revised GLUCOSE reference range effective 2017. LAB L501.1000 7-18 mg/dL High BUN 32 LAB L501.1100 0.70-1.30 mg/dL High CREAT,SERUM 1.74 Result Comment: The validity of the calculated GFR AND GFRAA in patients over 70 years has not been determined. Clinical correlation is essential. LAB L501.1110 >60 mL/min Low EST GFR 41 Result Comment: Non- GFR Calc LAB L501.1115 >60 mL/min Low EST GFR - AA 49 Result Comment: GFR Calc LAB L501.1255 ml/min Normal Estimated CRCL 36.14 LAB L501.1300 10-20 RATIO Normal BUN/CRE 18.4 LAB L501.2200 8.5-10 mg/dL Normal .1 CA 9.8 LAB L501.5300 136-14 mmol/L Low 5 NA 135 LAB L501.5600 3.5-5. mmol/L Normal 1 K 4.0 LAB L501.5900 98-107 mmol/L Normal CL 101 LAB L501.6100 21.0-3 mmol/L Normal 2.0 CO2 27.0 LAB L501.6200 5-15 Normal GAP 7 Performed By: #### L500.2500, L500.3400 #### [facility] [address] [place], [address] LIVER PROFILE Collected: 03/29/2018 Status: F Source: [place] 5:20 AM [facility] REPOSITORY TYPE CODE TESTS RESULT OUT OF RANGE REFERENCE UNITS LAB L501.1500 6.4-8.2 g/dL Normal T PROT 7.6 LAB L501.1800 3.2-5.0 g/dL Low ALB 2.5 LAB L501.1950 2.2-4.2 g/dL High GLOB 5.1 LAB L501.4100 15-37 U/L Normal AST 24 LAB L501.4305 45-117 U/L High ALK P 124 LAB L501.4405 16-61 U/L Normal ALT 18 LAB L501.4600 0.20-1.00 mg/dL High T BILI 1.10 LAB L501.4700 0.00-0.30 mg/dL High D BILI 0.36 Performed By: #### L500.2500, L500.3400 #### [facility] [address] [place], [address] HISTORY AND PHYSICAL Observed: 03/28/2018 Status: F Source: [place] EXAM 8:28 PM [facility] REPOSITORY [facility] Medical Records Department [address] [place] [address] History and Physical 03/28/182010 MR#: [id number] Acct: [id number] Name: NAVEEN AKINS Rep #: [id number] : 1940 78 From: Jh Gustafson MD PCP: Jack Olmedo MD Status: ADM IN Y Location: [place] [address] Problem List (1) Abdominal aortic aneurysm, ruptured Status: Acute (2) Cardiac arrest Status: Acute (3) Anoxic encephalopathy Status: Acute (4) Hyperlipidemia Status: Chronic (5) Acute kidney injury Status: Acute (6) Tachycardia Status: Acute (7) DIC (disseminated intravascular coagulation) Status: Acute (8) Ileus Status: Acute (9) Iron deficiency anemia Status: Chronic (10) GERD (gastroesophageal reflux disease) Status: Chronic (11) Dysphagia Status: Acute (12) Coronary artery disease Status: Chronic (13) Hypertension Status: Chronic History of Present Illness Date of Admission: 03/28/18 Chief Complaint: Here for rehabilitation, strengthening, prior to care home care placement. The patient is a 78 year old Male with below past medical history presented to [facility] Emergency Department 01/11/2018 with syncope, left flank pain, diaphoresis, nausea. He was recently diagnosed with 6CM abdominal aortic aneurysm, had appointment with vascular surgery 01/12/2018. 01/11/2018 CT scan of abdomen/pelvis showed ruptured abdominal aortic aneurysm. Patient intubated, given succinyl choline, Ativan, Fentanyl. Transfused 4 units trauma blood. Patient [facility] to [facility]. 01/12/2018 Dr. Paniagua performed emergent AAA repair. Transferred to [facility] for recovery. Trach, PEG, condom catheter. Code Blue x 5, vasovagal thought secondary to Famotidine. EP recommended no intervention. Family told not to expect full recovery. HCAP treated with IV antibiotics. 03/28/2018 Admit to TCU with debility, here for rehabilitation, strengthening, prior to care home care placement. His spouse is medically ill and unable to care for him at home. Past Medical History Past Medical History (Chronic Problems): Chronic Problems Hyperlipidemia (Chronic) Iron deficiency anemia (Chronic) GERD (gastroesophageal reflux disease) (Chronic) Coronary artery disease (Chronic) Hypertension (Chronic) Allergies famotidine [From Pepcid] Adverse Reaction (Verified 03/28/18 16:36) Low blood pressure Home Medications: Ambulatory Orders Medication Instructions Recorded Chlorhexidine [(None)] 15 ml PO BID 03/28/18 Docusate Sodium [COLACE LIQUID] 100 mg GT BID 03/28/18 Ferrous Sulfate Syrup 325 mg GT BID 03/28/18 Surgical History: - - Left arm he states that a jerry has been placed in the arm. Emergent AAA repair. Psychiatric History: No pertinent psych hx Lives: Spouse/ Significant Other Smoking Status: Never smoker Tobacco Use: Non-smoker Alcohol: None Drugs: None - *Family History Maternal History Items: Unknown Review of Systems Constitutional: Denies: Chills, Fever, Weight Change HEENT: Denies: Head Aches, Sinus Congestion, Sinus Drainage Cardiovascular: Denies: Chest Pain, Palpitations Respiratory: Denies: Cough, Shortness of breath at rest, Sputum production Gastrointestinal: Denies: Abdominal Pain, Nausea, Vomiting Genitourinary: Denies: Dysuria Musculoskeletal: Denies: Joint Pain, Joint Tenderness Skin: Denies: Rash, Wounds Neurological: Denies: Numbness, Tingling, Focal weakness Psychiatric: Denies: Anxiety, Depression, Homicidal Ideations, Suicidal Ideations Hematologic/ Lymphatic: Denies: Easy Bruising, Easy Bleeding VTE Information - Inpt Only VTE Present on Admission: No VTE Mechan Device Prophylaxis: Knee High GENARO Hose VTE Pharm Prophylaxis ordered?: Yes Patient Problems: Active and Suspected Problems Abdominal aortic aneurysm, ruptured (Acute) Cardiac arrest (Acute) Anoxic encephalopathy (Acute) Acute kidney injury (Acute) Tachycardia (Acute) DIC (disseminated intravascular coagulation) (Acute) Ileus (Acute) Dysphagia (Acute) - Physical Exam General: Alert, Oriented x3, Cooperative HEENT: Atraumatic, PERRLA, EOMI, Normocephalic Neck: Supple, No JVD, Negative Carotid Bruits, - - Tracheostomy. Lungs: Clear to auscultation, Normal air movement Cardiovascular: Regular rate, No murmurs Abdomen: Bowel Sounds Present, Soft, Non Tender, - - PEG tube, Condom catheter. Extremities: No edema, Capillary Refill Less than 3 Seconds Skin: No rashes, No breakdown, Incision - Abdomen per wound team. Musculoskeletal: No Tenderness to Palpation of Joints or Extremities Neurological: Cranial nerves II-XII grossly intact Psych/Mental Status: Normal Affect, Appropriate Vital Signs Temp Pulse Resp BP Pulse Ox 97.9 F 82 18 105/63 99 03/28/18 16:10 03/28/18 16:10 03/28/18 16:10 03/28/18 16:10 03/28/18 16:10 Oxygen Delivery Method Room Air Weight: 73.028 kg Body Mass Index (BMI) 22.4 Assessment/Plan All Active Problems Abdominal aortic aneurysm, ruptured (Acute) Cardiac arrest (Acute) Anoxic encephalopathy (Acute) Acute kidney injury (Acute) Tachycardia (Acute) DIC (disseminated intravascular coagulation) (Acute) Ileus (Acute) Dysphagia (Acute) 78 year old male with below past medical history hospitalized for ruptured abdominal aortic aneurysm, underwent repair 01/12/[address] Paniagua, complicated by cardiac arrest, anoxic encephalopathy, admitted to [facility], then transferred to TCU for rehabilitation, strengthening, prior to tacking stitch remover care placement. Resident's prognosis is poor. * Debility - PT/OT. * Dysphagia - ST. * Pain - Tylenol 650MG Q6H PRN mild pain. * Bowel - Colace 100MG GT BID. * Pneumonia vaccination - Family declined Pneumonia vaccination as well as flu vaccination. * DVT prophylaxis - Heparin 5000 units BID. * Iron deficiency anemia - Ferrous sulfate 300MG BID. * Shortness of breath - Duonb 3ML TID. * GERD - Lansoprazole 30MG daily. * Skin irritation - Calmoseptine TID buttocks. * Coronary Artery Disease - Metoprolol 12.5MG BID. * Thrush - Nystatin 100,000 4x/day x 10 days. * Dry eyes - Artificial Tears 1GTT OU BID. * Nutrition - Vital AF 1.2 60ML/hour, consult nutrition for water flushes. 03/28/182027 <Electronically signed by Jh Gustafson MD> Date Jh Gustafson MD Cosigner Signature: Date (if applicable) CC: Jack Olmedo MD; Jh Gustafson MD Signed GLUCOSE METER Collected: 03/15/2018 Status: F Source: [facility] 4:34 PM [facility] REPOSITORY TYPE CODE TESTS RESULT OUT OF REFERENCE UNITS RANGE LAB GLUBL(LOINC 70-99 mg/dL ) High Glucose Meter 116 Result Comment: RN NOTIFIED Performed By: #### GLMET #### [address] [address] MDRD GFR Collected: 03/15/2018 Status: F Source: [facility] 3:10 AM HEALTH SYSTEM REPOSITORY TYPE CODE TESTS RESULT OUT OF RANGE REFERENCE UNITS LAB GFRFN(LOINC >60mL/min/1.73m ) 2 eGFR 48.60 Result Comment: If the patient is , multiply the result by 1.210. Performed By: #### GFR #### [address] [place] [address] HEMOGRAM Collected: 03/15/2018 Status: F Source: [facility] 3:10 AM HEALTH SYSTEM REPOSITORY TYPE CODE TESTS RESULT OUT OF REFERENCE UNITS RANGE LAB WBC(LOINC) 4.23-9.07 thou/cmm WBC 6.41 LAB RBC(LOINC) 4.63-6.08 mil/cmm Low RBC 2.82 LAB HGB(LOINC) 13.7-17.5 g/dL Low Hgb 8.1 LAB HCT(LOINC) 40.1-51.0 % Low Hct 25.8 LAB MCV(LOINC) 83.2-95.6 fl MCV 91.5 LAB MCH(LOINC) 25.7-32.2 pg MCH 28.7 LAB MCHC(LOINC) 32.3-36.5 % Low MCHC 31.4 LAB RDW(LOINC) 11.6-14.4 % High RDW 16.9 LAB RDWSD(LOINC 36.1-45.8 fl ) High RDW SD 55.8 LAB PLT(LOINC) 141-365 thou/cmm Platelet 195 LAB MPV(LOINC) 8.7-12.0 fl MPV 9.8 Performed By: #### CBC1 #### [place] [address] BASIC PANEL Collected: 03/15/2018 Status: F Source: [facility] 3:10 AM HEALTH SYSTEM REPOSITORY TYPE CODE TESTS RESULT OUT OF REFERENCE UNITS RANGE LAB NA(LOINC) 136-145 mEq/L Sodium Blood 145 LAB K(LOINC) 3.5-5.1 mEq/L Potassium Blood 4.1 LAB CL(LOINC) 98-107 mEq/L Chloride High Blood 114 LAB CO2(LOINC) 21-32 mEq/L CO2 Blood 25 LAB GLU(LOINC) 70-99 mg/dL Glucose High Blood 119 LAB BUN(LOINC) 7-18 mg/dL BUN High Blood 28 LAB CREA(LOINC 0.67-1.17 mg/dL ) High Creatinine Blood 1.41 LAB CA(LOINC) 8.5-10.1 mg/dL Calcium Blood 9.1 LAB ANGAP(LOIN 8-16 C) Anion Gap 10 Performed By: #### P8 #### [address] [place], [place] [address] PROGRESS Observed: 03/14/2018 Status: COMPLETED Source: [place] 3:42 PM CLINIC OTHER CAMPUS REPOSITORY O ID: [id number] Author: Hollie Monae Service: Electrophysiology Author Type: Nurse Practitioner Type: Progress Notes Filed: 03/14/2018 3:51 PM Note Text: HRA PROGRESS NOTE: EP CARDIOLOGY SERVICE SERVICE DATE: 03/14/2018 SERVICE TIME: 3:42 PM Subjective INTERIM HISTORY: Naveen Akins is laying in bed. He appears to understand commands. I spoke with his daughter and son at the bedside. Objective PHYSICAL EXAM: Body mass index is 22.48 kg/m?. O2 Therapy: Trach Collar No Data Recorded Patient Vitals for the past 24 hrs: BP Temp Temp src Pulse Resp SpO2 Weight 03/14/18 1538 - - - 104 (!) 35 99 % - 03/14/18 1400 113/68 37.2 ?C (99 ?F) Axillary 103 29 98 % - 03/14/18 1300 98/75 37.3 ?C (99.1 ?F) Axillary 103 27 98 % - 03/14/18 1150 - - - 99 30 99 % - 03/14/18 1143 116/58 37 ?C (98.6 ?F) Axillary 98 30 99 % - 03/14/18 1100 109/58 - - - - - - 03/14/18 1000 115/57 36.7 ?C (98.1 ?F) - 97 27 98 % - 03/14/18 0900 110/58 36.9 ?C (98.4 ?F) - 99 30 100 % - 03/14/18 0800 118/69 36.7 ?C (98.1 ?F) Axillary 101 28 98 % - 03/14/18 0728 - - - 95 (!) 32 100 % - 03/14/18 0720 - - - 94 20 99 % - 03/14/18 0700 112/70 36.7 ?C (98.1 ?F) - 91 25 100 % - 03/14/18 0600 108/66 36.8 ?C (98.2 ?F) - 95 25 100 % - 03/14/18 0400 129/85 36.2 ?C (97.2 ?F) - 97 29 98 % 77.3 kg (170 lb 6.7 oz) 03/14/18 0200 122/80 36.3 ?C (97.3 ?F) - 96 24 100 % - 03/14/18 0000 121/70 37.1 ?C (98.8 ?F) - 106 (!) 32 99 % - 03/13/18 2300 - 37.1 ?C (98.8 ?F) - 105 23 100 % - 03/13/18 2200 128/80 36.9 ?C (98.4 ?F) - 108 30 99 % - 03/13/18 2100 - 37.2 ?C (99 ?F) - 106 24 100 % - 03/13/18 2000 138/76 37.1 ?C (98.8 ?F) Axillary 108 (!) 33 100 % - 03/13/181958 - - - 109 30 100 % - 03/13/181951 - - - 106 (!) 31 100 % - 03/13/18 1900 - 37 ?C (98.6 ?F) - 109 28 99 % - 03/13/18 1800 118/68 37.1 ?C (98.8 ?F) - 110 (!) 32 99 % - 03/13/18 1700 - 37 ?C (98.6 ?F) - 109 30 99 % - 03/13/18 1600 123/76 37.3 ?C (99.1 ?F) - 107 25 100 % - Pleasant, comfortable, not in acute distress. Winks on command Moves all extremities. SKIN: No rash or lumps. HEENT: Normocephalic, face symmetrical. NECK: trach intact LUNGS: Coarse BS bilat. CARDIAC: Rhythm: regular rate and rhythm, Rate: normal, S1: normal intensity, S2: normal intensity, No murmur ABDOMEN: Soft, nontender, bowel sounds present. EXTREMITIES: No edema. PULSES: Peripheral pulses present. MEDICATIONS: Current hospital medications: senna-docusate 8.6-50 mg 1 tablet (SENNA-S) 1 tablet ORAL DAILY PRN levoFLOXacin 750 mg tab(s) (LEVAQUIN) 750 mg ORAL q 48 HR ferrous sulfate 325 mg tab(s) 325 mg ORAL BID Chlorhexidine Gluconate 0.12 % 15 mL (PERIDEX) 15 mL ORAL q 12 H ipratropium-albuterol 3 mL nebulizer solution (DUONEB) 3 mL INHALATION QID carboxymethylcellulose sodium 1-2 Drop (CELLUVISC) 1-2 Drop BOTH EYES PRN heparin 5,000 Units injection 5,000 Units SUBCUTANEOUS q 8 H pantoprazole 40 mg injection (PROTONIX) 40 mg INTRAVENOUS DAILY (6 AM) potassium chloride 80-120 mEq oral liquid 80-120 mEq ORAL/FEEDING TUBE PRN potassium chloride iv piggyback 20 mEq in sterile water 100 mL 20 mEq INTRAVENOUS PRN magnesium sulfate in water 2 g in sterile water 50 ml 2 g INTRAVENOUS PRN sodium phosphate 45 mmol in NaCl 0.9% 250 mL 45 mmol INTRAVENOUS PRN calcium gluconate 4 g in NaCl 0.9% 250 mL 4 g INTRAVENOUS PRN 0.9% NaCl 3-5 mL 3-5 mL INTRAVENOUS q 12 H fentaNYL 50 mcg/mL 25-50 mcg injection (SUBLIMAZE) 25-50 mcg INTRAVENOUS q 2 H PRN DATA: Diagnostic tests reviewed for today's visit: Most recent labs Most recent telemetry Past 72 Hour Labs: Recent Labs 03/14/18 0310 WBC 5.80 RBC 2.75* HB 7.7* HCT 24.7* MCV 89.8 MCH 28.0 MCHC 31.2* PLT 162 MPV 9.5 GLUC 117* BUN 28* CREAT 1.35* NA 147* K 3.4* CHLOR 116* CO2 24 CA 8.9 Last Lab Drawn: Triglyceride 266 02/06/2018 Assessment/Plan Active Problems: Cardiac arrest (HCC) POA: Yes Assessment AND Plan: suspected of having vasovagal syncope. No recurrence in the hospital. I shared the telemetry strips with Dr. Esqueda and he believes it looks like artifact. Echocardiogram shows EF 60%. Naveen Akins is stable to return to [facility]. He will be monitored on telemetry. I spoke with the patient's son and daughter and they are in agreement. EP cardiology signing off. Bradycardia POA: Yes Assessment AND Plan: no recurrence while hospitalized Resolved Problems: * No resolved hospital problems. * Medication and Non-Pharmacologic VTE Prophylaxis/Anticoagulants Anticoagulant AND Antiplatelet Medications Start Dose Route Frequency Ordered Stop 03/09/182099 heparin 5,000 Units injection 5,000 Units SUBCUTANEOUS EVERY 8 HOURS 03/09/182038 -- SIGNATURE: Paige Monae, MSN, ACADEMIC ADMINISTRATOR.PNEUMATIC TUBE OPERATOR PATIENT NAME: Naveen Akins DATE: March 14, 2018 TIME: 3:42 PM PAGER/CONTACT #: [phone] CONSULT PROG Observed: 03/14/2018 Status: COMPLETED Source: [place] 3:33 PM CLINIC OTHER CAMPUS REPOSITORY HNO ID: [id number] Author: Benigno Domingo Service: Gastroenterology Author Type: Physician Type: Consult Progress Note Filed: 03/14/2018 3:40 PM Note Text: GI CONSULT PROGRESS NOTE SERVICE DATE: 03/14/2018 SERVICE TIME: 3:34 PM CONSULTING SERVICE: Gastroenterology Subjective INTERVAL HISTORY: Pt is tolerating TF w/o sig residuals at 40 cc/hr. No evidence of methylene blue in upper airway secretions. MEDICATIONS: Current hospital medications: senna-docusate 8.6-50 mg 1 tablet (SENNA-S) 1 tablet ORAL DAILY PRN levoFLOXacin 750 mg tab(s) (LEVAQUIN) 750 mg ORAL q 48 HR ferrous sulfate 325 mg tab(s) 325 mg ORAL BID Chlorhexidine Gluconate 0.12 % 15 mL (PERIDEX) 15 mL ORAL q 12 H ipratropium-albuterol 3 mL nebulizer solution (DUONEB) 3 mL INHALATION QID carboxymethylcellulose sodium 1-2 Drop (CELLUVISC) 1-2 Drop BOTH EYES PRN heparin 5,000 Units injection 5,000 Units SUBCUTANEOUS q 8 H pantoprazole 40 mg injection (PROTONIX) 40 mg INTRAVENOUS DAILY (6 AM) potassium chloride 80-120 mEq oral liquid 80-120 mEq ORAL/FEEDING TUBE PRN potassium chloride iv piggyback 20 mEq in sterile water 100 mL 20 mEq INTRAVENOUS PRN magnesium sulfate in water 2 g in sterile water 50 ml 2 g INTRAVENOUS PRN sodium phosphate 45 mmol in NaCl 0.9% 250 mL 45 mmol INTRAVENOUS PRN calcium gluconate 4 g in NaCl 0.9% 250 mL 4 g INTRAVENOUS PRN 0.9% NaCl 3-5 mL 3-5 mL INTRAVENOUS q 12 H fentaNYL 50 mcg/mL 25-50 mcg injection (SUBLIMAZE) 25-50 mcg INTRAVENOUS q 2 H PRN Objective PHYSICAL EXAM: VITALS:BP 113/68 Pulse 103 Temp 37.2 ?C (99 ?F) (Axillary) Resp 29 Ht 185.4 cm (6' 1) Wt 77.3 kg (170 lb 6.7 oz) SpO2 98% BMI 22.48 kg/m? ABDOMEN: soft, NT, min distension, +BS DATA: Diagnostic tests reviewed for today's visit: Most recent labs and imaging results. Impression/Recommendations 1) No clear evidence of aspiration clinically. Discussed w son and dtr. Obviously, GJ tube is an option and contrast study thru G tube may not add any other evidence. They requested cont Methylene Blue in TF's for around 5 more ds then stop if pt stable and no evidence in secretions at LTAC. I'm ok w that as long as available as it is here. will continue to f/u the patient SIGNATURE: Benigno Domingo MD PATIENT NAME: Naveen Akins DATE: March 14, 2018 TIME: 3:33 PM PAGER/CONTACT #: CASE MANAGEM Observed: 03/14/2018 Status: COMPLETED Source: [place] 2:50 PM [facility] REPOSITORY HNO ID: [id number] Author: Ariadna TylerRn) MAGALY Hoang Service: Care Management Author Type: Registered Nurse Type: Care Mgt Progress Note Filed: 03/14/2018 2:54 PM Note Text: CARE MANAGEMENT PROGRESS NOTE SERVICE DATE: 03/14/2018 SERVICE TIME: 2:50 PM LOS: 5 days Met with son Naveen and dtr at bedside. They are still deciding on return to [facility]. Reviewed dc for tomorrow. Dr Whittaker notified. He requests ICU bed at [facility]. SIGNATURE: Ariadna Hoang RN PATIENT NAME: Naveen Akins DATE: March 14, 2018 TIME: 2:50 PM PAGER/CONTACT #: [phone] CONSULT PROG Observed: 03/14/2018 Status: COMPLETED Source: [place] 10:36 AM [facility] REPOSITORY HNO ID: [id number] Author: Katerine Ibarra Service: Gastroenterology Author Type: Nurse Practitioner Type: Consult Progress Note Filed: 03/14/2018 10:56 AM Note Text: CONSULT PROGRESS NOTE SERVICE DATE: 03/14/2018 SERVICE TIME: 10:37 AM CONSULTING SERVICE: GASTROENTEROLOGY Subjective INTERVAL HPI: Patient winked at daughter when asked to, per RN no methylene blue noted around trach or in secretions, TF at goal of 40cc/hr. Current hospital medications: levoFLOXacin 750 mg tab(s) (LEVAQUIN) 750 mg ORAL q 48 HR senna-docusate 8.6-50 mg 1 tablet (SENNA-S) 1 tablet ORAL DAILY ferrous sulfate 325 mg tab(s) 325 mg ORAL BID Chlorhexidine Gluconate 0.12 % 15 mL (PERIDEX) 15 mL ORAL q 12 H ipratropium-albuterol 3 mL nebulizer solution (DUONEB) 3 mL INHALATION QID carboxymethylcellulose sodium 1-2 Drop (CELLUVISC) 1-2 Drop BOTH EYES PRN heparin 5,000 Units injection 5,000 Units SUBCUTANEOUS q 8 H pantoprazole 40 mg injection (PROTONIX) 40 mg INTRAVENOUS DAILY (6 AM) potassium chloride 80-120 mEq oral liquid 80-120 mEq ORAL/FEEDING TUBE PRN potassium chloride iv piggyback 20 mEq in sterile water 100 mL 20 mEq INTRAVENOUS PRN magnesium sulfate in water 2 g in sterile water 50 ml 2 g INTRAVENOUS PRN sodium phosphate 45 mmol in NaCl 0.9% 250 mL 45 mmol INTRAVENOUS PRN calcium gluconate 4 g in NaCl 0.9% 250 mL 4 g INTRAVENOUS PRN 0.9% NaCl 3-5 mL 3-5 mL INTRAVENOUS q 12 H fentaNYL 50 mcg/mL 25-50 mcg injection (SUBLIMAZE) 25-50 mcg INTRAVENOUS q 2 H PRN Objective PHYSICAL EXAM: Physical Exam Performed: GENERAL: Trach in no distress, cooperative and following commands LUNGS: Lungs clear to auscultation, even and unlabored on trach collar CARDIAC: Normal S1 and S2 ABDOMEN: Abdomen soft and non-tender with + BS X 4, no guarding, rebound, distention, masses or organomegaly, ML incision with dressing intact, FMS-GD with brown drainage, Peg tube with methylene blue TF infusing EXTREMITIES: No edema noted at this time PULSES: 2+ radial BP 115/57 Pulse 97 Temp (Src) 98.1 (Axillary) Resp 27 Ht 6' 1 (1.85m) Wt 170 lb 6.7 oz (77.3kg) SpO2 98% BMI 22.49 kg/(m2). DATA: Diagnostic tests reviewed for today's visit: Ref. Range 03/14/2018 03:10 Sodium Latest Ref Range: 136 - 145 mEq/L 147 (H) Potassium Latest Ref Range: 3.5 - 5.1 mEq/L 3.4 (L) Chloride Latest Ref Range: 98 - 107 mEq/L 116 (H) CO2 Latest Ref Range: 21 - 32 mEq/L 24 BUN Latest Ref Range: 7 - 18 mg/dL 28 (H) Creatinine Latest Ref Range: 0.67 - 1.17 mg/dL 1.35 (H) Glucose Latest Ref Range: 70 - 99 mg/dL 117 (H) Calcium Latest Ref Range: 8.5 - 10.1 mg/dL 8.9 Anion Gap Latest Ref Range: 8 - 16 10 eGFR Latest Ref Range: >60mL/min/1.73m2 51.10 Ref. Range 03/14/2018 03:10 WBC Latest Ref Range: 4.23 - 9.07 thou/cmm 5.80 RBC Latest Ref Range: 4.63 - 6.08 mil/cmm 2.75 (L) HGB Latest Ref Range: 13.7 - 17.5 g/dL 7.7 (L) Hematocrit Latest Ref Range: 40.1 - 51.0 % 24.7 (L) Platelet Count Latest Ref Range: 141 - 365 thou/cmm 162 MCV Latest Ref Range: 83.2 - 95.6 fl 89.8 Impression/Recommendations 1). ? TF aspiration via peg tube-s/p peg tube placement on 01/27/18 receiving TF, no residual (per RN), KUB (-), no aspiration noted with methylene blue added to TF (TF at goal of 40cc) Assessment AND Plan: Continue methylene blue in TF to observe for discoloring in secretions. If family isn't satisfied with test (daughter stated the test isn't a true test 2/2 TF rate isn't the same from [facility]) could consider J tube in IR (will discuss with Dr. Domingo). ? 2). Acute on chronic normocytic anemia-multifactorial, no overt bleeding, hgb stable in 7's, FMS with brown drainage Assessment AND Plan: Continue to monitor h/h, transfuse <7, continue PPI ? 3). Cardiac arrest with achieving ROSC ? vasovagal syncope Assessment AND Plan: Defer to ICU ? 4). Acute on chronic respiratory failure s/p tracheostomy Assessment AND Plan: Defer to primary ? SIGNATURE: Katerine Ibarra APRN.PNEUMATIC TUBE OPERATOR PATIENT NAME: Naveen Akins DATE: March 14, 2018 TIME: 10:37 AM PAGER: PROGRESS Observed: 03/14/2018 Status: COMPLETED Source: [place] 9:06 AM [facility] REPOSITORY HNO ID: [id number] Author: Chente Whittaker Service: Critical Care Author Type: Physician Type: Progress Notes Filed: 03/14/2018 12:35 PM Note Text: [facility] STAFF PHYSICIAN NOTE OF PERSONAL INVOLVEMENT IN CARE I have reviewed the progress note obtained and documented by the resident and I personally participated in the coleman components. I have discussed the case and management of the patient's care. The following comments revise or confirm relevant coleman components of the note. Interactive, nods appropriately, no distress Coarse BS b/l, diminished, minimal trach secretions, C/D/I Tachy, RR, no MGR noted Abd soft, NT, + PEG UE contracted, but follows commands and wiggles fingers on command VITAL SIGNS (last 24hrs min/max): BP 118/69 Pulse 101 Temp 36.7 ?C (98.1 ?F) (Axillary) Resp 28 Ht 185.4 cm (6' 1) Wt 77.3 kg (170 lb 6.7 oz) SpO2 98% BMI 22.48 kg/m? Respiratory/Nursing Documentation: O2 Therapy: Trach Collar (03/14/18799) Invasive Ventilator Mode: (S) Continuous Positive Airway Pressure;Pressure Support Ventilation (SBT) (03/13/18824) Set Ventilator Respiratory Rate (BPM): 15 (03/13/18899) Total Respiratory Rate (BPM): 32 (03/13/18824) Tidal Volume Set (mL): 450 (03/13/18817) Exhaled Tidal Volume (mL): 495 (03/13/18824) Minute Volume (L): 17 (03/13/18824) Peak Inspiratory Pressure (cm H2O): 11 (03/13/18824) PEEP/CPAP (cm H2O): 5 (03/13/18824) Intake/Output Summary (Last 24 hours) at 03/14/18906 Last data filed at 03/14/18799 Gross per 24 hour Intake 2141 ml Output 1590 ml Net 551 ml + 8L /Hospitalization MICRO: Blood Cx 03/09 NGTD Urine Cx: + ENterobacter Resp Cx 03/09: Non-ferment species ? IMAGING: CXR 03/09 IMPRESSION: Bibasilar subsegmental atelectasis favored. ?Left lower lobe infiltrate not excluded. ?No obvious pleural effusion or pneumothorax on this limited supine technique. ? AXR 03/09 IMPRESSION: ? No dilated gas-filled loops of bowel. ? TTE 03/10 The left ventricle is normal in size. Left ventricular systolic function is normal. EF = 60 ? 5% (visual est.) Definity contrast used for endocardial border detection. - The right ventricle is mildly dilated. ? IMPRESSION: - Acute Bradycardia -- Resolved, no events here - Suspected VT/Tachyarrythmia -- OSH rhythm strips obtained concerning for tachyarrythmia - Hx of OPAL (Severe) -- Clinical improvement - TERENCE -- Improving - Mild hypernatremia - Anemia (Multifactorial) - Enterobacter UTI - Concerns for aspiration - Lactic Acidosis -- Resolved - Septic Shock -- Resolved -- Off pressors - Severe debility ? PLAN: - No events of bradycardia here, appreciate EP input. Suspect vasovagal in etiology, however awaiting further EP input given OSH tele strips showing concerns for tachyarrythmia yesterday. Disposition pending on EP input. - Patient tolerated TM for > 24 hours, no further vent support at this time, continue TM and trach care/suctioning prn. Wean as tolerated - Continue TF, increase FW further. - Continue w/ coarse of abx as prescribed - H/H stable, no obvious signs of bleeding - Talked w/ family at bedside, +++ overwhelming concerns about regurgitation/aspiration of TF. Appreciate GI consult, completed recent methylene blue dye challenge. No evidence of regurgitation/aspirationat this time - Had lengthy discussion with family about still recommend disposition at LTACH given rehab potential, comorbidities, and active medical needs. Family considering - Continue w/ PPI - Hep SQ/PPI SIGNATURE: Chente Whittaker MD PATIENT NAME: Naveen Akins DATE: March 14, 2018 TIME: 12:34 PM HEMOGRAM Collected: 03/14/2018 Status: F Source: [facility] 3:10 AM HEALTH SYSTEM REPOSITORY TYPE CODE TESTS RESULT OUT OF REFERENCE UNITS RANGE LAB WBC(LOINC) 4.23-9.07 thou/cmm WBC 5.80 LAB RBC(LOINC) 4.63-6.08 mil/cmm Low RBC 2.75 LAB HGB(LOINC) 13.7-17.5 g/dL Low Hgb 7.7 LAB HCT(LOINC) 40.1-51.0 % Low Hct 24.7 LAB MCV(LOINC) 83.2-95.6 fl MCV 89.8 LAB MCH(LOINC) 25.7-32.2 pg MCH 28.0 LAB MCHC(LOINC) 32.3-36.5 % Low MCHC 31.2 LAB RDW(LOINC) 11.6-14.4 % High RDW 16.8 LAB RDWSD(LOINC 36.1-45.8 fl ) High RDW SD 54.6 LAB PLT(LOINC) 141-365 thou/cmm Platelet 162 LAB MPV(LOINC) 8.7-12.0 fl MPV 9.5 Performed By: #### CBC1 #### [place] [address] BASIC PANEL Collected: 03/14/2018 Status: F Source: [facility] 3:10 AM HEALTH SYSTEM REPOSITORY TYPE CODE TESTS RESULT OUT OF REFERENCE UNITS RANGE LAB NA(LOINC) 136-145 mEq/L Sodium High Blood 147 LAB K(LOINC) 3.5-5.1 mEq/L Low Potassium Blood 3.4 LAB CL(LOINC) 98-107 mEq/L Chloride High Blood 116 LAB CO2(LOINC) 21-32 mEq/L CO2 Blood 24 LAB GLU(LOINC) 70-99 mg/dL Glucose High Blood 117 LAB BUN(LOINC) 7-18 mg/dL BUN High Blood 28 LAB CREA(LOINC 0.67-1.17 mg/dL ) High Creatinine Blood 1.35 LAB CA(LOINC) 8.5-10.1 mg/dL Calcium Blood 8.9 LAB ANGAP(LOIN 8-16 C) Anion Gap 10 Performed By: #### P8 #### [address] [address] PROGRESS Observed: 03/13/2018 Status: COMPLETED Source: [place] 4:47 PM [facility] REPOSITORY HNO ID: [id number] Author: Hollie Monae Service: Electrophysiology Author Type: Nurse Practitioner Type: Progress Notes Filed: 03/13/2018 10:12 PM Note Text: [facility] PROGRESS NOTE: EP CARDIOLOGY SERVICE SERVICE DATE: 03/13/2018 SERVICE TIME: 4:48 PM Subjective INTERIM HISTORY: Naveen Akins is laying in bed, his son is at the bedside. He is non verbal but seems to understand by winking his eye. Objective PHYSICAL EXAM: Body mass index is 22.4 kg/m?. O2 Therapy: Trach Collar No Data Recorded Patient Vitals for the past 24 hrs: BP Temp Temp src Pulse Resp SpO2 Weight 03/13/18 1600 123/76 37.3 ?C (99.1 ?F) - 107 25 100 % - 03/13/18 1520 - - - 102 29 100 % - 03/13/18 1508 - - - 103 (!) 32 99 % - 03/13/18 1500 - 37.4 ?C (99.3 ?F) - 102 (!) 31 100 % - 03/13/18 1400 127/70 37 ?C (98.6 ?F) - 101 30 100 % - 03/13/18 1300 121/70 37.1 ?C (98.8 ?F) - 100 23 99 % - 03/13/18 1200 121/70 37.5 ?C (99.5 ?F) Axillary 97 (!) 31 100 % - 03/13/18 1134 - - - 96 (!) 32 100 % - 03/13/18 1127 - - - 96 (!) 40 100 % - 03/13/18 1100 - 37.5 ?C (99.5 ?F) - 93 (!) 37 100 % - 03/13/18 1055 - - - 92 (!) 34 100 % - 03/13/18 1000 125/61 37.4 ?C (99.3 ?F) - 94 (!) 31 99 % - 03/13/18 0900 - 37.3 ?C (99.1 ?F) Axillary 93 26 98 % - 03/13/18 0825 - - - 89 (!) 32 100 % - 03/13/18 0818 - - - 89 25 100 % - 03/13/18 0800 127/80 37.2 ?C (99 ?F) - 90 19 99 % - 03/13/18 0700 104/69 37.1 ?C (98.8 ?F) - 92 26 99 % - 03/13/18 0600 116/71 37.2 ?C (99 ?F) - 90 16 100 % - 03/13/18 0400 122/84 37.2 ?C (99 ?F) - 94 28 99 % - 03/13/18 0336 - - - 93 25 99 % - 03/13/18 0300 - - - - - - 77 kg (169 lb 12.1 oz) 03/13/18 0200 119/67 37.2 ?C (99 ?F) - 88 22 100 % - 03/13/18 0000 124/84 36.9 ?C (98.4 ?F) - 95 27 99 % - 03/12/18 2339 - - - 93 24 99 % - 03/12/18 2200 121/70 37.2 ?C (99 ?F) - 99 (!) 31 100 % - 03/12/18 2000 120/78 37 ?C (98.6 ?F) - 93 27 97 % - 03/12/18 1948 - - - 96 25 99 % - 03/12/18 1900 114/88 37.1 ?C (98.8 ?F) - 97 25 99 % - 03/12/18 1800 89/54 37.2 ?C (99 ?F) - 97 22 98 % - 03/12/18 1701 - - - 98 25 99 % - 03/12/18 1700 127/68 37.1 ?C (98.8 ?F) - 98 25 99 % - Pleasant, comfortable, not in acute distress. Moves all extremities. SKIN: No rash or lumps. HEENT: Normocephalic, face symmetrical. NECK: trach intact. LUNGS: Clear to auscultation bilaterally. CARDIAC: Rhythm: regular rate and rhythm, Rate: normal, S1: normal intensity, S2: normal intensity, No murmur ABDOMEN: Soft, nontender, bowel sounds present. EXTREMITIES: No edema. PULSES: Peripheral pulses present. MEDICATIONS: Current hospital medications: [START ON 03/14/2018] levoFLOXacin 750 mg tab(s) (LEVAQUIN) 750 mg ORAL q 48 HR methylene blue 5 mg/mL (0.5 %) 50 mg injection (PROVAYBLUE) 50 mg ORAL ONCE senna-docusate 8.6-50 mg 1 tablet (SENNA-S) 1 tablet ORAL BID ferrous sulfate 325 mg tab(s) 325 mg ORAL BID Chlorhexidine Gluconate 0.12 % 15 mL (PERIDEX) 15 mL ORAL q 12 H ipratropium-albuterol 3 mL nebulizer solution (DUONEB) 3 mL INHALATION QID carboxymethylcellulose sodium 1-2 Drop (CELLUVISC) 1-2 Drop BOTH EYES PRN heparin 5,000 Units injection 5,000 Units SUBCUTANEOUS q 8 H pantoprazole 40 mg injection (PROTONIX) 40 mg INTRAVENOUS DAILY (6 AM) potassium chloride 80-120 mEq oral liquid 80-120 mEq ORAL/FEEDING TUBE PRN potassium chloride iv piggyback 20 mEq in sterile water 100 mL 20 mEq INTRAVENOUS PRN magnesium sulfate in water 2 g in sterile water 50 ml 2 g INTRAVENOUS PRN sodium phosphate 45 mmol in NaCl 0.9% 250 mL 45 mmol INTRAVENOUS PRN calcium gluconate 4 g in NaCl 0.9% 250 mL 4 g INTRAVENOUS PRN 0.9% NaCl 3-5 mL 3-5 mL INTRAVENOUS q 12 H fentaNYL 50 mcg/mL 25-50 mcg injection (SUBLIMAZE) 25-50 mcg INTRAVENOUS q 2 H PRN DATA: Diagnostic tests reviewed for today's visit: Most recent labs Most recent telemetry Past 72 Hour Labs: Recent Labs 03/13/18 0240 WBC 6.47 RBC 2.64* HB 7.6* HCT 24.1* MCV 91.3 MCH 28.8 MCHC 31.5* PLT 160 MPV 9.2 GLUC 114* BUN 30* CREAT 1.55* NA 147* K 3.7 CHLOR 116* CO2 25 CA 9.0 Last Lab Drawn: Triglyceride 266 02/06/2018 Assessment/Plan Active Problems: Cardiac arrest (HCC) POA: Yes Assessment AND Plan: suspected of having vasovagal syncope. Received tele strips from [facility], the quality is poor. He appears to have had an artifact on the first strip. The second strip looks like asystole and then a ventricular arrhythmia, the third strips is the same. The fourth strip shows SR and then asystole. The fifth strip shows artifact. I will share the strips with Dr. Esqueda. Anoxic encephalopathy ([facility]) POA: Yes Assessment AND Plan: primary service TERENCE (acute kidney injury) ([facility]) POA: Yes Assessment AND Plan: primary service Acute on chronic respiratory failure ([facility]) POA: Yes Assessment AND Plan: has trach Aspiration into lower respiratory tract POA: Yes Assessment AND Plan: primary service Bradycardia POA: Yes Assessment AND Plan: no evidence of Bradycardia on tele. Brief afib 138 bpm, no asystole, heart block, VT. Sepsis (HCC) POA: Yes Assessment AND Plan: primary service followig Tracheostomy in place (HCC) POA: Yes Assessment AND Plan: intact Vasovagal syncope POA: Yes Assessment AND Plan: no recurrence Shock (HCC) POA: Yes Assessment AND Plan: primary service following Asystole (HCC) POA: Yes Assessment AND Plan: no recurrence Urinary tract infection associated with indwelling urethral catheter (HCC) POA: Yes Assessment AND Plan: primary service followig Resolved Problems: * No resolved hospital problems. * Medication and Non-Pharmacologic VTE Prophylaxis/Anticoagulants Anticoagulant AND Antiplatelet Medications Start Dose Route Frequency Ordered Stop 03/09/182099 heparin 5,000 Units injection 5,000 Units SUBCUTANEOUS EVERY 8 HOURS 03/09/182038 -- SIGNATURE: Paige Monae, MSN, ACADEMIC ADMINISTRATOR.PNEUMATIC TUBE OPERATOR PATIENT NAME: Naveen Akins DATE: March 13, 2018 TIME: 4:48 PM PAGER/CONTACT #: [phone] CONSULT Observed: 03/13/2018 Status: COMPLETED Source: [place] 3:51 PM CLINIC OTHER CAMPUS REPOSITORY HNO ID: [id number] Author: Katerine Bertrand (Irene) Stacey Service: Gastroenterology Author Type: Nurse Practitioner Type: Consults Filed: 03/13/2018 10:23 PM Note Text: CONSULT: GASTROENTEROLOGY SERVICE SERVICE DATE: 03/13/2018 SERVICE TIME: 3:51 PM REASON FOR CONSULT: ? TF aspiration from Peg tube REQUESTING PHYSICIAN: ICU PRIMARY CARE PHYSICIAN: Megan Hurst MD Subjective Mr. Akins is a 78 year old male with ruptured AAA s/p repair complicated by respiratory failure requiring trach and dysphagia requiring peg tube who presented to the ED s/p cardiac arrest from bradycardia. He was recently admitted for AAA repair requiring long admission stay. He was discharged on 02/10/18 to [facility]. While at [facility] he went into cardiac arrest with multiple times of bagging for almost 40 seconds so he was transferred to [facility]. Once admitted he went into cardiac arrest for 3 minutes with ROSC maintain. GI was consulted for possible aspiration of tube feeding from Peg tube. His Peg tube was inserted in OR on 01/27/18. He have been getting TF and tolerating them since his surgery. His family stated they thought they noticed TF around his trach in [facility]. They stated they believed his secretions smelled like vanilla. They also stated he had no residual when checked at [facility]. FUNCTIONAL STATUS: Totally dependent PAST MEDICAL HISTORY Diagnosis Date - Acute on chronic respiratory failure ([facility]) 03/09/2018 - Anoxic encephalopathy ([facility]) 01/13/2018 post arrest 01/2018 - Aspiration into lower respiratory tract 03/10/2018 - Bradycardia 03/10/2018 severe bradycardia with asystole, probably vasovagal etiology - Coronary artery disease 1998 daughter states he had CAD by heart cath 1998 and had a stent placed in the maker artery - DIC (disseminated intravascular coagulation) ([facility]) 01/12/2018 - Gallstone pancreatitis 06/16/2009 - Hypokalemia 01/12/2018 - Hypomagnesemia 01/12/2018 - Hypophosphatemia 01/12/2018 - Ruptured abdominal aortic aneurysm (AAA) ([facility]) 01/12/2018 ruptured infrarenal AAA 01/12/2018, required emergent surgery; had an arrest enroute to [facility], resuscitated but had post-anoxic encephalopathy; postop course very complicated PAST SURGICAL HISTORY Procedure Laterality Date - ABD AORTIC ANEURYSM REPAIR 01/12/2018 emergent surgical repair of ruptured AAA; [facility] - DIALYSIS CATHETER PLACEMENT 01/2018 - ECHOCARDIOGRAM 03/10/2018 technically challenging study; LV systolic fxn normal, LVEF 60%; dilated RV; no obvious valvular abnormalities - ECHOCARDIOGRAM 01/13/2018 normal LV systolic fxn; LVEF 55-60%; mild LVH; no significant valvular abnormalities - EXPLORE WOUND, ABDOMEN 01/2018 two abdominal explorations after emergent repair of AAA 01/12/2018 - INSERT INTRACORONARY STENT 1998 daughter states he had stent placed in the maker artery of his heart - LAP CHOLECYSTECT/CHOLANGIOGRAPHY 05-28-09 - PEG TUBE 01/2018 - PICC LINE INSERT[place]ICC TEAM[place] 01/31/2018 - PICC LINE INSERT[place]AM[place] 02/01/2018 - REPAIR UMBILICAL NATAN,5+Y/O,REDUC 05-28-09 - TRACHEOSTOMY HX 01/2018 FAMILY HISTORY Problem Relation Age of Onset - None Mother - Coronary Artery Disease Father Social History Substance Use Topics - Smoking status: Never Smoker - Smokeless tobacco: Never Used - Alcohol use No Prescriptions Prior to Admission: midodrine (PROAMITINE) 5 mg tablet 3 tablets by PEG route every 8 hours. (Patient taking differently: 15 mg by PEG route every 8 hours. Taking per discharge summary on 02/11 - patient came from [facility] ) Disp: Rfl: carboxymethylcellulose sodium (REFRESH LIQUIGEL) 1 % dlgl Use 1-2 Drops in both eyes as needed (Dry Eyes). (Patient taking differently: Use 1-2 Drops in both eyes as needed (Dry Eyes). Taking per discharge summary on 02/11 - patient came from [facility] ) Disp: Rfl: ipratropium-albuterol (DUONEB) 0.5 mg-3 mg(2.5 mg base)/3 mL nebu Inhale 3 mL as instructed four times daily. (Patient taking differently: Inhale 3 mL as instructed four times daily. Taking per discharge summary on 02/11 - patient came from [facility] ) Disp: Rfl: Chlorhexidine Gluconate (PERIDEX) 0.12 % solution Take 15 mL by mouth every 12 hours. (Patient taking differently: Take 15 mL by mouth every 12 hours. Taking per discharge summary on 02/11 - patient came from [facility] ) Disp: Rfl: heparin 5,000 unit/mL injection Inject 1 mL subcutaneously every 12 hours. (Patient taking differently: Inject 5,000 Units subcutaneously every 12 hours. Taking per discharge summary on 02/11 - patient came from [facility] ) Disp: Rfl: metoclopramide HCl (REGLAN) 5 mg/mL injection Inject 5 mg intravenously every 12 hours. (Patient taking differently: Inject 5 mg intravenously every 12 hours. Taking per discharge summary on 02/11 - patient came from [facility] ) Disp: Rfl: senna leaf extract 176 mg/5 mL syrp 15 mL by OROGASTRIC route twice daily. (Patient taking differently: 15 mL by OROGASTRIC route twice daily. Taking per discharge summary on 02/11 - patient came from [facility] ) Disp: Rfl: pantoprazole (PROTONIX) 40 mg injection Inject 10 mL intravenously DAILY (6 AM). (Patient taking differently: Inject 40 mg intravenously DAILY (6 AM). Taking per discharge summary on 02/11 - patient came from [facility] ) Disp: Rfl: Current hospital medications: [START ON 03/14/2018] levoFLOXacin 750 mg tab(s) (LEVAQUIN) 750 mg ORAL q 48 HR methylene blue 5 mg/mL (0.5 %) 50 mg injection (PROVAYBLUE) 50 mg ORAL ONCE ferrous sulfate 325 mg tab(s) 325 mg ORAL BID Chlorhexidine Gluconate 0.12 % 15 mL (PERIDEX) 15 mL ORAL q 12 H ipratropium-albuterol 3 mL nebulizer solution (DUONEB) 3 mL INHALATION QID carboxymethylcellulose sodium 1-2 Drop (CELLUVISC) 1-2 Drop BOTH EYES PRN heparin 5,000 Units injection 5,000 Units SUBCUTANEOUS q 8 H pantoprazole 40 mg injection (PROTONIX) 40 mg INTRAVENOUS DAILY (6 AM) potassium chloride 80-120 mEq oral liquid 80-120 mEq ORAL/FEEDING TUBE PRN potassium chloride iv piggyback 20 mEq in sterile water 100 mL 20 mEq INTRAVENOUS PRN magnesium sulfate in water 2 g in sterile water 50 ml 2 g INTRAVENOUS PRN sodium phosphate 45 mmol in NaCl 0.9% 250 mL 45 mmol INTRAVENOUS PRN calcium gluconate 4 g in NaCl 0.9% 250 mL 4 g INTRAVENOUS PRN 0.9% NaCl 3-5 mL 3-5 mL INTRAVENOUS q 12 H fentaNYL 50 mcg/mL 25-50 mcg injection (SUBLIMAZE) 25-50 mcg INTRAVENOUS q 2 H PRN Allergies As of Date: 03/09/2018 (No Known Allergies) Fully Assessed 03/09/2018 COMPLETE REVIEW OF SYSTEMS: Unable to obtain 2/2 mentation Objective PHYSICAL EXAM: Physical Exam Performed: GENERAL: Unresponsive on trach collar in no distress SKIN: Skin warm and dry, with abdominal ML dressing intact LUNGS: Lungs clear to auscultation, even and unlabored on trach collar CARDIAC: Normal S1 and S2; without rubs, murmurs, or gallops ABDOMEN: Abdomen soft and appears non-tender with + BS X 4, no guarding, rebound, or distention, peg tube with TF infusing EXTREMITIES: Extremities normal, no deformities, edema, clubbing or skin discoloration. Good capillary refill. PULSES: 2+ radial BP 127/70 Pulse 102 Temp (Src) 99.3 (Axillary) Resp 29 Ht 6' 1 (1.85m) Wt 169 lb 12.1 oz (77.0kg) SpO2 100% BMI 22.40 kg/(m2). DATA: Diagnostic tests reviewed for today's visit: Ref. Range 03/13/2018 02:40 Sodium Latest Ref Range: 136 - 145 mEq/L 147 (H) Potassium Latest Ref Range: 3.5 - 5.1 mEq/L 3.7 Chloride Latest Ref Range: 98 - 107 mEq/L 116 (H) CO2 Latest Ref Range: 21 - 32 mEq/L 25 BUN Latest Ref Range: 7 - 18 mg/dL 30 (H) Creatinine Latest Ref Range: 0.67 - 1.17 mg/dL 1.55 (H) Glucose Latest Ref Range: 70 - 99 mg/dL 114 (H) Calcium Latest Ref Range: 8.5 - 10.1 mg/dL 9.0 Anion Gap Latest Ref Range: 8 - 16 10 eGFR Latest Ref Range: >60mL/min/1.73m2 43.57 Ref. Range 03/12/2018 03:40 03/13/2018 02:40 WBC Latest Ref Range: 4.23 - 9.07 thou/cmm 5.13 6.47 RBC Latest Ref Range: 4.63 - 6.08 mil/cmm 2.47 (L) 2.64 (L) HGB Latest Ref Range: 13.7 - 17.5 g/dL 7.1 (L) 7.6 (L) Hematocrit Latest Ref Range: 40.1 - 51.0 % 22.7 (L) 24.1 (L) Platelet Count Latest Ref Range: 141 - 365 thou/cmm 176 160 MCV Latest Ref Range: 83.2 - 95.6 fl 91.9 91.3 MCH Latest Ref Range: 25.7 - 32.2 pg 28.7 28.8 KUB on 03/09/18: IMPRESSION: ? No dilated gas-filled loops of bowel. ?Supine evaluation does not evaluate for free air. ?Percutaneous gastrostomy tube favored in the left upper quadrant. ? There are surgical clips in the left hemiabdomen and upper pelvis. ?Metallic fragment noted over the right upper quadrant. ?No significant interval change. Impression/Recommendations 1). ? TF aspiration via peg tube-s/p peg tube placement on 01/27/18 receiving TF, no residual (per RN), KUB (-) Assessment AND Plan: Add methylene blue in TF to observe for discoloring in secretions. 2). Acute on chronic normocytic anemia-multifactorial, no overt bleeding, hgb stable in 7's Assessment AND Plan: Continue to monitor h/h, transfuse <7, continue PPI 3). Cardiac arrest with achieving ROSC ? vasovagal syncope Assessment AND Plan: Defer to ICU 4). Acute on chronic respiratory failure s/p tracheostomy Assessment AND Plan: Defer to primary SIGNATURE: Katerine Ibarra APRN.CNP PATIENT NAME: Naveen Akins DATE: March 13, 2018 TIME: 3:51 PM PAGER: [phone] Observed: 03/13/2018 Status: COMPLETED Source: [place] 1:19 PM CLINIC OTHER CAMPUS REPOSITORY HNO ID: [id number] Author: Jaimie Perez RD Service: Nutrition Therapy Author Type: Registered Dietitian Type: Nutrition Filed: 03/14/2018 2:20 PM Note Text: NUTRITION THERAPY INITIAL ASSESSMENT SERVICE DATE: 03/13/2018 SERVICE TIME: 1045am RECOMMENDED MALNUTRITION DIAGNOSIS: UNABLE TO IDENTIFY MALNUTRITION AT THIS TIME NUTRITION CARE PLAN: Problem, Etiology and Signs/Symptoms: Alternate feeding route needed related to trach/dysphagia as evidenced by PEG placement for tacking stitch remover nutrition. Intervention: 1. Continue TF's via PEG since having BM's----->Nutren 2.0 @40ml/hr providing 1920kcals, 80gms pro 2. Adjust feeds per renal fxn 3. Reassess feeding route for care home with concerns of aspiration. Coordination of Care: d/w RN Monitor and Evaluation: Goal: Meet >75% of estimated needs Monitor fluid/electrolyte balance Monitor labs, I/Os, vital signs, weight Monitor tolerance to tube feeding Discharge Nutrition Recommendations: To be determined Per HPI: ? 78 yo rosa isela with complicated PMH, recent AA rupture requiring exploratory laparotomy and repair,prolonged hospitalization with chronic respiratory failure requiring trach and PEG, also severe ileus, who was sent from [facility] for severe bradycardia requiring CPR for almost 40 seconds once, he was bagged multiple times there as it was thought related to hypoxia, patient was transferred for dopamine drip but when he got into our ICU he had a cardiac arrest requiring 1 epinephrine and 3 min of CPR with ROSC, patient was at his baseline( in terms of mental status) after that but was hypotensive and levophed was started and he received 1.5l of NSS Admit s/p cardiac arrest. S/p multiple codes. CKD stable and back to baseline of CR 1.. ? Current Diet Order DIET TUBE FEED - CONTIN (NO TRAY) Order Specific Question: TF Product (26 years and up) Answer: NUTREN 2.0 Order Specific Question: TF Total mL per 24 hours Answer: 480 Order Specific Question: TF Goal Rate (mL/hr) Answer: 40 Order Specific Question: TF Initial Rate (mL/hr) Answer: 30 Order Specific Question: TF Water Flush Amount (mL) Answer: 50 Order Specific Question: TF Water Flush Frequency (times/day) Answer: 4 Lines and Drains: Central Line Triple Lumen 03/09/18 Right Groin (Active) Peripheral 03/09/18 2030 Right Arm 20 Gauge (Active) Peripheral 03/13/18 0939 Left Forearm 20 Gauge (Active) GI Feed/Drain Admission to Hospital Gastrostomy Left Upper Quadrant Abdomen (Active) External Urinary Drain 03/13/18 0538 Assessment (Active) Drain/Tube 03/13/18 0538 Assessment (Active) Nutritional Intake Prior to Admission: Unsure if TF's interrupted at [facility]. Was on TPN for some time 2/2 ileus. Per family, concerned that he frequently aspirates his TF's despite no residuals. Usually on Reglan. GI symptoms: unable to determine at this time Nutrition Abdominal Exam: and bowel sounds are normal ANTHROPOMETRICS Height: 185.4 cm (6' 1) Admission Weight: 73 kg (160 lb 15 oz) Current Weight: 77 kg (169 lb 12.1 oz) Body mass index is 22.4 kg/m?. underweight with advanced age Weight has decreased by 7 kg over 4 weeks representing 9 % weight change clinically significant but with fluid fluctuations. Last Wt 03/13/18 : 77 kg (169 lb 12.1 oz)-----------> +1.6L 03/09/18: 79kg (174#) at [facility] 02/08/18 : 84.8 kg (186 lb 15.2 oz) Dosing Weight: 77 kg Resting Metabolic Rate: 1549 Estimated kilocalorie needs: 1925 kilocalories determined by 25 kcal/kg Estimated protein needs: 92 grams determined by 1.2 g/kg Dosing weight Estimated fluid needs: per renal NUTRITION FOCUSED PHYSICAL EXAM: Unable to perform exam due to patient unable to participate, will re-attempt during reassessment. Temperature Max in 24 hours: Temp (24hrs), Av.2 ?C (99 ?F), Min:36.9 ?C (98.4 ?F), Max:37.5 ?C (99.5 ?F) BP 121/70 Pulse 100 Temp 37.1 ?C (98.8 ?F) Resp 23 Ht 185.4 cm (6' 1) Wt 77 kg (169 lb 12.1 oz) SpO2 99% BMI 22.40 kg/m? Recent Labs 03/13/18 0240 GLUC 114* BUN 30* CREAT 1.55* NA 147* K 3.7 CHLOR 116* CO2 25 HB 7.6* HCT 24.1* WBC 6.47 Potential Signs of Inflammation: hyperglycemia, hypoalbuminemia and microbiologic cultures Current Facility-Administered Medications: ferrous sulfate 325 mg tab(s) 325 mg ORAL BID Chlorhexidine Gluconate 0.12 % 15 mL (PERIDEX) 15 mL ORAL q 12 H NaCl 0.45% iv infusion 40 mL/hr INTRAVENOUS CONTINUOUS ipratropium-albuterol 3 mL nebulizer solution (DUONEB) 3 mL INHALATION QID carboxymethylcellulose sodium 1-2 Drop (CELLUVISC) 1-2 Drop BOTH EYES PRN heparin 5,000 Units injection 5,000 Units SUBCUTANEOUS q 8 H pantoprazole 40 mg injection (PROTONIX) 40 mg INTRAVENOUS DAILY (6 AM) potassium chloride 80-120 mEq oral liquid 80-120 mEq ORAL/FEEDING TUBE PRN potassium chloride iv piggyback 20 mEq in sterile water 100 mL 20 mEq INTRAVENOUS PRN magnesium sulfate in water 2 g in sterile water 50 ml 2 g INTRAVENOUS PRN sodium phosphate 45 mmol in NaCl 0.9% 250 mL 45 mmol INTRAVENOUS PRN calcium gluconate 4 g in NaCl 0.9% 250 mL 4 g INTRAVENOUS PRN 0.9% NaCl 3-5 mL 3-5 mL INTRAVENOUS q 12 H fentaNYL 50 mcg/mL 25-50 mcg injection (SUBLIMAZE) 25-50 mcg INTRAVENOUS q 2 H PRN Date 03/12/18699 - 03/13/18 0603/13/18699 - 03/14/18 0659 Shift 5060-7257 8905-0460 4228-2981 24 Hour Total 3751-4965 3929-8757 1781-0023 24 Hour Total I N T A K E IV 524 731 060 8865 286 286 IVPB 150 150 NS .45% 324 210 331 865 236 236 Zosyn IV 50 50 50 150 50 50 Irrigants 90 100 100 290 140 140 Irrigant/Flush Amount In (GI Feed/Drain Admission to Hospital Gastrostomy Left Upper Quadrant Abdomen) 90 100 100 290 140 140 Gastric Tube 263 266 246 775 275 275 Tube Feed Intake (I/O) (GI Feed/Drain Admission to Hospital Gastrostomy Left Upper Quadrant Abdomen) 263 266 246 775 275 275 Shift Total 877 524 981 8201 701 701 O U T P U T Urine 315 165 100 580 250 250 Void (ml) 30 100 130 Urine Incontinence/Not Saved 1 x 3 x 4 x Tube Output ([REMOVED] External Urinary Drain 03/12/1854 03/13/18536) 285 165 450 Tube Output ( External Urinary Drain 03/13/18537 Assessment) 250 250 Tubes 0 0 Drain/Tube Output (Drain/Tube 03/13/18537 Assessment ) 0 0 # of BMs Stool Incontinence 1 x 3 x 4 x Number of BMs 1 x 1 x 3 x 5 x Shift Total 315 165 100 580 250 250 Weight (kg) 76.3 76.3 77 77 77 77 77 77 Surgical Incision 03/09/18 Abdomen - Midline (Active) Dressing Status Clean, Dry AND Intact 03/13/2018 9:00 AM Frequency of Dressing Change Daily 03/13/2018 9:00 AM Dressing Change Due 03/13/18 03/13/2018 9:00 AM Dressing /Treatment Type ABD 03/13/2018 9:00 AM Incision Closures None 03/13/2018 9:00 AM Drainage Description None 03/13/2018 9:00 AM Drainage Amount Scant 03/13/2018 9:00 AM Edges Broken;Red 03/13/2018 9:00 AM Hematoma No 03/13/2018 9:00 AM Number of days: 4 MNT Billing Type: Initial Assess/15 min 4 units SIGNATURE: Jaimie Perez RD PATIENT NAME: Naveen Akins DATE: March 13, 2018 TIME: 1:19 PM PAGER: [phone] CASE MANAGEM Observed: 03/13/2018 Status: COMPLETED Source: [place] 11:39 AM CLINIC OTHER CAMPUS REPOSITORY HNO ID: [id number] Author: Ariadna TylerRn) MAGALY Hoang Service: Care Management Author Type: Registered Nurse Type: Care Mgt Progress Note Filed: 03/13/2018 11:41 AM Note Text: CARE MANAGEMENT PROGRESS NOTE SERVICE DATE: 03/13/2018 SERVICE TIME: 11:39 AM LOS: 4 days Spoke with pt's Shelly on phone. Reviewed choice list with her over phone d/t not able to come to hospital today. Reviewed choice list with son Gilbert at bedside. Discussed DC planning with Dr Whittaker- plan for GI consult. Anticipate DC WED, SIGNATURE: Ariadna Hoang RN PATIENT NAME: Naveen Akins DATE: March 13, 2018 TIME: 11:39 AM PAGER/CONTACT #: [phone] CASE MGT INIT Observed: 03/13/2018 Status: COMPLETED Source: [facility] 10:03 AM CLINIC OTHER CAMPUS REPOSITORY HNO ID: [id number] Author: Ariadna (Rn) MAGALY Hoang Service: Care Management Author Type: Registered Nurse Type: Care Mgt Initial Assessment Filed: 03/13/2018 10:14 AM Note Text: CARE MANAGEMENT: ASSESSMENT AND DISCHARGE PLAN SERVICE DATE: 03/13/2018 SERVICE TIME: 10:03 AM PRIMARY CARE PHYSICIAN: Megan Hurst MD Phone: None ADMISSION STATUS: Inpatient MEDICAL: Patient/Continuing Education Director Stated Goals: TBD Health Insurance: MEDICARE A AND B Medicare Health Issues Impacting Discharge Plan: Cardiac issues Last Admission Date: Previous admit date: 01/12/2018 Is this Within the Past 30 days? No Advance Directive: FUNCTIONAL AND COGNITIVE/BEHAVIORAL PRIOR TO ADMISSION ASSESSMENT: Unable to complete assessment at this time due to pt on vent Has the Patient Been in a Prison Facility in the Past 30 days? No SOCIAL: Living Arrangement: Previously at [facility] Lives With: N/A Patient From Facility Financial Resources: Retired Primary Contact: Extended Emergency Contact Information Primary Emergency Contact: Shelly Mckeon Address: [address] [place] [address] Relation: Spouse Supportive: Yes Other Important Patient Contacts: None Caregiver Assessment: Caregiver is ready, willing and able to meet the patient's needs as recommended by the inter-professional team? No Caregiver Needed Patient's transition needs and plan for meeting these needs: placement Does the patient have an acute stroke diagnosis, or has the patient had a stroke during this admission? No Medicaiton Adherence: Patient is unable to complete at this time due to pt from LT[facility]- meds provided. Are you interested in bedside delivery of your medications? No Food Concerns: In the Last Month, Have You had Trouble Getting Food? No trouble getting food During the Last Month, Have You Worried Whether Your Food Would Run Out Before You Had Enough Money to Buy More? No Is the Patient Psychosocially Complex? No ASSESSMENT AND PLAN: Medical Needs: None Psychosocial Needs: None FREEDOM OF CHOICE EXPLAINED: The patient and/or family has been given the Provider List: Yes POTENTIAL TRANSITION PLANS To Be Determined Pt son Manjit- from [place], assisted with assessment. Pt Shelly is decision maker. Pt had weaned off vent at [facility] per son. Family to decide if pt will return to [facility]. SIGNATURE: Ariadna Hoang RN PATIENT NAME: Naveen Akins DATE: March 13, 2018 TIME: 10:03 AM PAGER/CONTACT #: [phone] PROGRESS Observed: 03/13/2018 Status: COMPLETED Source: [place] 9:09 AM [facility] OTHER CAMPUS REPOSITORY HNO ID: [id number] Author: Chente Whittaker Service: Critical Care Author Type: Physician Type: Progress Notes Filed: 03/13/2018 2:39 PM Note Text: [facility] STAFF PHYSICIAN NOTE OF PERSONAL INVOLVEMENT IN CARE I have reviewed the progress note obtained and documented by the resident and I personally participated in the coleman components. I have discussed the case and management of the patient's care. The following comments revise or confirm relevant coleman components of the note. 03/13/18 0600 03/13/18 0700 03/13/18 0818 03/13/18 0825 BP: 116/71 104/69 Pulse: 90 92 89 89 Resp: 16 26 25 (!) 32 Temp: 37.2 ?C (99 ?F) 37.1 ?C (98.8 ?F) TempSrc: SpO2: 100% 99% 100% 100% Weight: Height: Intake/Output Summary (Last 24 hours) at 03/13/18 0910 Last data filed at 03/13/18 0538 Gross per 24 hour Intake 1930 ml Output 550 ml Net 1380 ml + 7L/hospitalization MICRO: Blood Cx 03/09 NGTD Urine Cx: + ENterobacter IMAGING: CXR 03/09 IMPRESSION: Bibasilar subsegmental atelectasis favored. ?Left lower lobe infiltrate not excluded. ?No obvious pleural effusion or pneumothorax on this limited supine technique. AXR 03/09 IMPRESSION: ? No dilated gas-filled loops of bowel. TTE 03/10 The left ventricle is normal in size. Left ventricular systolic function is normal. EF = 60 ? 5% (visual est.) Definity contrast used for endocardial border detection. - The right ventricle is mildly dilated. IMPRESSION: - Acute Bradycardia -- Resolved, no events here - Hx of OPAL (Severe) -- Clinical improvement - Mild hypernatremia - Anemia (Multifactorial) - Enterobacter UTI - Concerns for aspiration - Lactic Acidosis -- Resolved - Septic Shock -- Resolved -- Off pressors PLAN: - No events of bradycardia here/overnight, appreciate EP input. Suspect vasovagal in etiology, no indication for device placement. Defer w/u to cardio - Transition vent support to TC and monitor. Of note patient was 24hours trach collar at [facility] per family. Will continue TC trials as tolerated - Continue TF - Will transition to levaquin, continued course as ordered - Increase FW - H/H stable, no obvious signs of bleeding - Hep SQ/PPI - Talked w/ family at bedside, +++ overwhelming concerns about regurgitation/aspiration of TF. Requested GI consult for further evaluation. Offered to exchange G-tube to J-tube, but family requests GI w/u first. - Awaiting return to [facility] for disposition This patient has a high probability of sudden, clinically significant deterioration, which requires the highest level of physician preparedness to intervene urgently. I managed/supervised life or organ supporting interventions that required frequent physician assessment. I devoted my full attention to the direct care of this patient for the amount of time indicated below. Time I spent with family or surrogate(s) is included only if the patient was incapable of providing the necessary information or participating in medical decision making. Time devoted to teaching and to any procedures I billed separately is not included. Critical Care Documentation: The patient has the following organ/system impairment(s): Respiratory failure (Acute on Chronic, with Hypercapnea, with Hypoxemia) CCT 35' March 13, 2018 9:10 AM Chente Whittaker MD PROGRESS Observed: 03/13/2018 Status: COMPLETED Source: [place] 7:33 AM CLINIC OTHER CAMPUS REPOSITORY HNO ID: [id number] Author: Tristan (Luther Holguin MD Service: Critical Care Author Type: Resident Type: Progress Notes Filed: 03/13/2018 3:58 PM Note Text: Attestation signed by Chente Whittaker at 03/13/2018 5:04 PM Personally examined patient and discussed case with resident and reviewed his progress note/documentation. I also personally reviewed imaging and all laboratory data. Agree with history, exam, and assessment/plan. For any additional comments or changes in plan, please refer to my note on March 13, 2018 MICU - PROGRESS NOTE SERVICE DATE: 03/13/2018 SERVICE TIME: 7:33 AM Admission Date: 03/09/2018 AGE: [age] year old LOS: 4 days Subjective Naveen Akins is a 78 year-old male with a PMH of ruptured AAA, ileus, and respiratory failure who presented from [facility] after cardiac arrest. Occurred 5 times yesterday where advised not to do compressions do to surgical repair of AAA. Pateint was brought to the ICU with increased somnolence, and spasms of the upper limbs. Patient coded again in the ICU. Reverted to normal rhythm in the ICU after CPR. Patient became hypotensive at 80/49 so was given 500 mL bolus and started on levophed. Central femoral line was placed. CBC showed WBC of 26 and lactic acid of 5.2. Blood, urine, and sputum cultures were ordered. ECHO ordered as well. Empirically started on Vanc, Zosyn, and levoquin. ? ? Interval History: No acute events overnight. Objective PROBLEMS: ACTIVE PROBLEM LIST Gallstone Pancreatitis Ruptured Abdominal Aortic Aneurysm (Aaa) (Hcc) Dic (Disseminated Intravascular Coagulation) (Hcc) Acute Respiratory Failure (Hcc) Cardiac Arrest (Hcc) Hypokalemia Hypomagnesemia Hypophosphatemia Anoxic Encephalopathy (Hcc) Aaa (Abdominal Aortic Aneurysm, Ruptured) (Hcc) Obesity, Class I, Bmi 30-34.9 Terence (Acute Kidney Injury) (Hcc) Ileus (Hcc) Acute Liver Failure Without Hepatic Coma Acute On Chronic Respiratory Failure (Hcc) Aspiration into Lower Respiratory Tract Bradycardia Sepsis (Hcc) Tracheostomy in Place (Hcc) Vasovagal Syncope Shock (Hcc) Asystole (Hcc) Urinary Tract Infection Associated With Indwelling Urethral Catheter (Hcc) VITAL SIGNS (last 24hrs min/max): BP 116/71 Pulse 90 Temp (Src) 99 (Axillary) Resp 16 Ht 6' 1 (1.85m) Wt 169 lb 12.1 oz (77.0kg) SpO2 100% BMI 22.40 kg/(m2). Temp (24hrs), Av.1 ?C (98.7 ?F), Min:36.6 ?C (97.9 ?F), Max:37.3 ?C (99.1 ?F) NET FLUID BALANCE Intake/Output Summary (Last 24 hours) at 03/13/18 0733 Last data filed at 03/13/18 0538 Gross per 24 hour Intake 2230 ml Output 580 ml Net 1650 ml Lines, Drains, and Airways Line Central Line Triple Lumen 03/09/18 Right Groin 4 days Peripheral 03/09/18 2030 Right Arm 20 Gauge 3 days Drain GI Feed/Drain Admission to Hospital Gastrostomy Left Upper Quadrant Abdomen -- days Drain/Tube 03/13/18 0538 Assessment less than 1 day External Urinary Drain 03/13/18 0538 Assessment less than 1 day Airway Airway Shiley -- days PHYSICAL EXAM PERFORMED: General: Awake in no distress, nonconversational Neck: Supple without JVD or Lymphadenopathy. Trach tube in place Cardiac: RRR, S1S2 with no MGR Lungs: Clear to auscultation bilaterally Abdomen: Soft non-tender, non-distended, normal bowel sounds. Vertical scar covered from AAA repair. Extremities: No deformities, edema, clubbing or skin discoloration. DATA: LABS: Recent Labs 03/13/18 0240 WBC 6.47 RBC 2.64* HB 7.6* HCT 24.1* MCV 91.3 PLT 160 GLUC 114* BUN 30* CREAT 1.55* NA 147* K 3.7 CHLOR 116* CO2 25 CA 9.0 Assessment/Plan Assessment S/p Cardiac arrest from bradycardia 2/2 drugs? Or intense vasovagal reaction? Shock, Septic v Cardiac H/o AAA and repair Acute on chronic anemia CKD Altered Mental Status in context of hx of anoxic brain injury Lactic Acidosis (resolved) Possible UTI (has chronic sanchez in place) H/o CAD with stent placement ? Plan Most likely transfer to floor tomorrow Pulmonary -Currently on Vent -30% FiO2, peep-5 -Place on trach collar today ? Cardiovascular -Per cardio, does not need pacer for now, loop recorder when stable -ECHO result as above ? Renal/Fluids/Electrolytes -On 1/2 NS @ 40mL/hr for maintenance ? GI/Metabolic/Nutrition -On PPI for stress ulcer prophylaxis -Tube feeds @ 20 mL/hr -Placed on ferrous sulfate -Consult Gi to evaluate for aspiration of tube feeds per request of family. -Insert GJ tube. ? Hematologic/Infectious Disease -ContinueLevaquin for gram negative coverage -Urine - gram negative bacilli>100,000 (Enterobacter) -Blood - day 3 no growth -Sputum - Nonfermenter species moderate, gram positive diptheroids many, gram negative bacilli moderate SIGNATURE: Tristan Holguin MD PATIENT NAME: Naveen Akins DATE: March 13, 2018 TIME: 7:33 AM PAGER: [phone] HEMOGRAM Collected: 03/13/2018 Status: F Source: [facility] 2:40 AM HEALTH SYSTEM REPOSITORY TYPE CODE TESTS RESULT OUT OF REFERENCE UNITS RANGE LAB WBC(LOINC) 4.23-9.07 thou/cmm WBC 6.47 LAB RBC(LOINC) 4.63-6.08 mil/cmm Low RBC 2.64 LAB HGB(LOINC) 13.7-17.5 g/dL Low Hgb 7.6 LAB HCT(LOINC) 40.1-51.0 % Low Hct 24.1 LAB MCV(LOINC) 83.2-95.6 fl MCV 91.3 LAB MCH(LOINC) 25.7-32.2 pg MCH 28.8 LAB MCHC(LOINC) 32.3-36.5 % Low MCHC 31.5 LAB RDW(LOINC) 11.6-14.4 % High RDW 17.2 LAB RDWSD(LOINC 36.1-45.8 fl ) High RDW SD 57.1 LAB PLT(LOINC) 141-365 thou/cmm Platelet 160 LAB MPV(LOINC) 8.7-12.0 fl MPV 9.2 Performed By: #### CBC1 #### [facility] [address] [id number] BASIC PANEL Collected: 03/13/2018 Status: F Source: [facility] 2:40 AM HEALTH SYSTEM REPOSITORY TYPE CODE TESTS RESULT OUT OF REFERENCE UNITS RANGE LAB NA(LOINC) 136-145 mEq/L Sodium High Blood 147 LAB K(LOINC) 3.5-5.1 mEq/L Potassium Blood 3.7 LAB CL(LOINC) 98-107 mEq/L Chloride High Blood 116 LAB CO2(LOINC) 21-32 mEq/L CO2 Blood 25 LAB GLU(LOINC) 70-99 mg/dL Glucose High Blood 114 LAB BUN(LOINC) 7-18 mg/dL BUN High Blood 30 LAB CREA(LOINC 0.67-1.17 mg/dL ) High Creatinine Blood 1.55 LAB CA(LOINC) 8.5-10.1 mg/dL Calcium Blood 9.0 LAB ANGAP(LOIN 8-16 C) Anion Gap 10 Performed By: #### P8 #### [facility] [address] [id number] PROGRESS Observed: 03/12/2018 Status: COMPLETED Source: [place] 7:27 AM CLINIC OTHER CAMPUS REPOSITORY HNO ID: [id number] Author: Lora Soliz Service: Critical Care Author Type: Physician Type: Progress Notes Filed: 03/12/2018 2:33 PM Note Text: MICU - PROGRESS NOTE SERVICE DATE: 03/12/2018 SERVICE TIME: 7:27 AM Admission Date: 03/09/2018 AGE: [age] year old LOS: 3 days Subjective Case background: Naveen Akins is a 78 year-old male with a PMH of ruptured AAA, ileus, and respiratory failure who presented from [facility] after cardiac arrest. Occurred 5 times yesterday where advised not to do compressions do to surgical repair of AAA. Pateint was brought to the ICU with increased somnolence, and spasms of the upper limbs. Patient coded again in the ICU. Reverted to normal rhythm in the ICU after CPR. Patient became hypotensive at 80/49 so was given 500 mL bolus and started on levophed. Central femoral line was placed. CBC showed WBC of 26 and lactic acid of 5.2. Blood, urine, and sputum cultures were ordered. ECHO ordered as well. Empirically started on Vanc, Zosyn, and levoquin. ? ? Interval History: No acute events overnight. Objective PROBLEMS: ACTIVE PROBLEM LIST Gallstone Pancreatitis Ruptured Abdominal Aortic Aneurysm (Aaa) (Hcc) Dic (Disseminated Intravascular Coagulation) (Hcc) Acute Respiratory Failure (Hcc) Cardiac Arrest (Hcc) Hypokalemia Hypomagnesemia Hypophosphatemia Anoxic Encephalopathy (Hcc) Aaa (Abdominal Aortic Aneurysm, Ruptured) (Hcc) Obesity, Class I, Bmi 30-34.9 Terence (Acute Kidney Injury) (Hcc) Ileus (Hcc) Acute Liver Failure Without Hepatic Coma Acute On Chronic Respiratory Failure (Hcc) Aspiration into Lower Respiratory Tract Bradycardia Sepsis (Hcc) Tracheostomy in Place (Hcc) Vasovagal Syncope Shock (Hcc) Asystole (Hcc) VITAL SIGNS (last 24hrs min/max): BP 98/62 Pulse 79 Temp 98.6 Resp 18 Ht 6' 1 (1.85m) Wt 168 lb 3.4 oz (76.3kg) SpO2 100% BMI 22.20 kg/(m2). Temp (24hrs), Av.2 ?C (99 ?F), Min:37 ?C (98.6 ?F), Max:37.7 ?C (99.9 ?F) NET FLUID BALANCE Intake/Output Summary (Last 24 hours) at 03/12/18 0727 Last data filed at 03/12/18 0600 Gross per 24 hour Intake 3665 ml Output 1205 ml Net 2460 ml Lines, Drains, and Airways Line Peripheral Admission to Hospital Right Wrist 20 Gauge -- days Central Line Triple Lumen 03/09/18 Right Groin 3 days Peripheral 03/09/18 2030 Right Arm 20 Gauge 2 days Drain GI Feed/Drain Admission to Hospital Gastrostomy Left Upper Quadrant Abdomen -- days Airway Airway Shiley -- days PHYSICAL EXAM PERFORMED: General: Sedated Neck: trach tube in place Cardiac: RRR, S1S2 with no MGR Lungs: Clear to auscultation bilaterally Abdomen: Soft, non-tender, non-distended, normal bowel sounds. Vertical wound from AAA repair covered Extremities: No deformities, edema, clubbing or skin discoloration. DATA: LABS: Recent Labs 03/12/1833903/09/182054 TROPI -- -- 0.020 WBC 5.13 < > 26.07* RBC 2.47* < > 2.83* HB 7.1* < > 8.1* HCT 22.7* < > 26.7* MCV 91.9 < > 94.3 PLT 176 < > 268 GLUC 111* < > 128* BUN 37* < > 63* CREAT 1.60* < > 1.64* NA 148* < > 142 K 3.6 < > 4.2 CHLOR 118* < > 111* CO2 23 < > 22 TPROT -- -- 7.9 ALB -- -- 2.2* CA 8.9 < > 9.4 ALKPHOS -- -- 152* TBILI -- -- 0.8 AST -- -- 39* ALT -- -- 34 MG -- -- 2.4 < > = values in this interval not displayed. Assessment/Plan Assessment S/p Cardiac arrest from bradycardia 2/2 drugs? Or intense vasovagal reaction? Shock, Septic v Cardiac H/o AAA and repair Acute on chronic anemia CKD Altered Mental Status in context of hx of anoxic brain injury Lactic Acidosis (resolved) Possible UTI (has chronic sanchez in place) H/o CAD with stent placement ? Plan Pulmonary -Currently on Vent -30% FiO2, peep-5 -Wean on vent and place on PSV ? Cardiovascular -Currently NS @ 40 mL/hr -Per cardio, does not need pacer for now, loop recorder when stable -ECHO result as above ? Renal/Fluids/Electrolytes -On 06/07 NS @ 40mL/hr for maintenance ? GI/Metabolic/Nutrition -On PPI for stress ulcer prophylaxis -Tube feeds @ 20 mL/hr -Placed on ferrous sulfate ? Hematologic/Infectious Disease -Continue Zosyn and levaquin for gram negative coverage -Urine - gram negative bacilli>100,000 -Blood - day 2 no growth -Sputum - gram positive bacilli, diphtheroids, suggestive of colonizers SIGNATURE: Tristan Holguin MD PATIENT NAME: Naveen Akins DATE: March 12, 2018 TIME: 7:27 AM PAGER: [phone] [facility] STAFF PHYSICIAN NOTE OF PERSONAL INVOLVEMENT IN CARE I have reviewed the documentation by the resident and I personally participated in the coleman components. I have discussed the case and management of the patient's care. Patient seen and examined. The following comments revise or confirm relevant coleman components of the note. Discussed in team rounds. Data: Labs stable psv vent Pt did follow one step commands for me; PeG; trach; vss Critical Care Documentation: The patient has the following organ/system impairment(s): Acute kidney injury, Arrhythmias, Circulatory shock, Complex life-threatening medical problem(s), Encephalopathy and Respiratory failure (Acute, Acute on Chronic, with Hypercapnea) ? ASS: 1. Symptomatic bradycardia, no events here; reviewed LTAC notes/ labs/ CT; CAD no VT; reported TF aspiration and vagal BM events per son 2. AAA with complications 10 weeks post MSOD 3. Improved severe anoxic brain injury, still severe; LE minimal motor ?spinal artery event ?CCNmyopathy 4. Anemia, acute on chronic; also dropped with hemodilution 5. CRI, but off HD, no worse 6. Improved lactic acidosis, acute 7 Enterobacter UTI pyuruia POA 8. Reported TF aspiration when flat per son!! 9. Hx CAD, stents 10. Wounds better 11. Hx Enterobacter pneumonia, not active 12. Possible septic shock with LA, hypotension, transient wbc, at risk MMP ? PLAN: 1. Echo good; I spoke Dr Rai cardio; suspect noninvasive eval; no clear pacer need but need strips ltac 2. Back on vent support; was on trach collar off vent ltac 3. Hold reglan but doubt cause of his UE spasticity; he does aspirate TF at ltac per son; also now on Levoflox risk; low TF increased 4. Post RBC tx 5. Off baclofen 6. No tele records from ?ltac, called physician, unclear , no clear AVB 7. periodic breathing seth smith in past, plus vagal with BMs per family ?contributed celi 8. atb ; ID to see if complex; dc levoflox as sens enterobacter uti GNB; DC vanco as low susp mrsa active 9. Off norepi.? ? Appropriate adjustments will be made based on available data and information Discussed with bedside staff/ patient/ family daughters This patient has a high probability of sudden, clinically significant deterioration, which requires the highest level of physician preparedness to intervene urgently. I managed/supervised life or organ supporting interventions that required frequent physician assessment. I devoted my full attention to the direct care of this patient for the amount of time indicated below. Time I spent with family or surrogate(s) is included only if the patient was incapable of providing the necessary information or participating in medical decision making. Time devoted to teaching is not included. Time spent providing critical care services: 30 minutes excluding procedures. SIGNATURE: Lora Soliz MD [facility] TIME of SERVICE: 2:21 PM HEMOGRAM Collected: 03/12/2018 Status: F Source: [facility] 3:40 AM HEALTH SYSTEM REPOSITORY TYPE CODE TESTS RESULT OUT OF REFERENCE UNITS RANGE LAB WBC(LOINC) 4.23-9.07 thou/cmm WBC 5.13 LAB RBC(LOINC) 4.63-6.08 mil/cmm Low RBC 2.47 LAB HGB(LOINC) 13.7-17.5 g/dL Low Hgb 7.1 LAB HCT(LOINC) 40.1-51.0 % Low Hct 22.7 LAB MCV(LOINC) 83.2-95.6 fl MCV 91.9 LAB MCH(LOINC) 25.7-32.2 pg MCH 28.7 LAB MCHC(LOINC) 32.3-36.5 % Low MCHC 31.3 LAB RDW(LOINC) 11.6-14.4 % High RDW 17.2 LAB RDWSD(LOINC 36.1-45.8 fl ) High RDW SD 58.0 LAB PLT(LOINC) 141-365 thou/cmm Platelet 176 LAB MPV(LOINC) 8.7-12.0 fl MPV 9.5 Performed By: #### CBC1 #### [facility] [address] [address] BASIC PANEL Collected: 03/12/2018 Status: F Source: [facility] 3:40 AM HEALTH SYSTEM REPOSITORY TYPE CODE TESTS RESULT OUT OF REFERENCE UNITS RANGE LAB NA(LOINC) 136-145 mEq/L Sodium High Blood 148 LAB K(LOINC) 3.5-5.1 mEq/L Potassium Blood 3.6 LAB CL(LOINC) 98-107 mEq/L Chloride High Blood 118 LAB CO2(LOINC) 21-32 mEq/L CO2 Blood 23 LAB GLU(LOINC) 70-99 mg/dL Glucose High Blood 111 LAB BUN(LOINC) 7-18 mg/dL BUN High Blood 37 LAB CREA(LOINC 0.67-1.17 mg/dL ) High Creatinine Blood 1.60 LAB CA(LOINC) 8.5-10.1 mg/dL Calcium Blood 8.9 LAB ANGAP(LOIN 8-16 C) Anion Gap 11 Performed By: #### P8 #### [facility] [address] [address] CONSULT Observed: 03/11/2018 Status: COMPLETED Source: [place] 5:21 PM CLINIC OTHER CAMPUS REPOSITORY HNO ID: [id number] Author: Simi Esqueda Service: Electrophysiology Author Type: Physician Type: Consults Filed: 03/11/2018 6:53 PM Note Text: CONSULT: [facility] Electrophysiology (EP) - [facility] ([facility]) SERVICE DATE: 03/11/2018 SERVICE TIME: 17:00 CONSULTING PHYSICIAN: Simi Esqueda MD PCP: Megan Hurst MD ATTENDING: Lora Soliz REASON FOR CONSULT: Arrhythmias and bradycardia, pauses, asystole Subjective CHIEF COMPLAINT: Bradycardia [R00.1] Anoxic brain injury (HCC) [G93.1] HISTORY OF PRESENT ILLNESS: Mr. Akins is a 78 year old male transferred from [facility] to the MICU due to recurrent episodes of severe bradycardia and asystole. He has a history of CAD with previous PCI/stent 1998 according to his daughter. She states he had maker blockage and received a stent, which was done at [facility]. He experienced ruptured AAA in 01/2018 which required urgent transfer to [facility]. Enroute he arrested, the daughter states. He was resuscitated but developed severe post-anoxic encephalopathy. He underwent emergent AAA repair here at [facility] on 01/12/2018. Postoperative course was quite complicated, requiring multiple reoperations for the abdominal site and also developed acute renal failure requiring hemodialysis, respiratory failure requiring tracheostomy, and also required PEG tube. He was then discharged to [facility] in [place]. The daughter states that on 03/09 he had 5 episodes of severely slow heart rates and heart stopping which resulted in CPR and such by the [facility] team. She recorded the times of each one: 1) 5:00 AM, 2) 8:37 AM, 3) 12:05 PM, 4) 2:18 PM, and 5) 4:44 PM. The available notes from [facility] indicate he developed severe sinus bradycardia and then asystole. One note mentions heart block and ventricular fibrillation although this is not consistent with other reports. No telemetry strips are available although Mr. Akins did have a 6th episode after arrival to the MICU on that same day (03/09) at about 9:13 PM. He has been found to have hypotension consistent with some type of shock, and there is question of UTI and possibly sepsis syndrome. He was not found to be having an VT or acute coronary syndrome. Dr. Rai of Cardiology has already evaluated him. PAST MEDICAL HISTORY Diagnosis Date - Acute on chronic respiratory failure ([facility]) 03/09/2018 - Anoxic encephalopathy ([facility]) 01/13/2018 post arrest 01/2018 - Aspiration into lower respiratory tract 03/10/2018 - Bradycardia 03/10/2018 severe bradycardia with asystole, probably vasovagal etiology - Coronary artery disease 1998 daughter states he had CAD by heart cath 1998 and had a stent placed in the maker artery - DIC (disseminated intravascular coagulation) ([facility]) 01/12/2018 - Gallstone pancreatitis 06/16/2009 - Hypokalemia 01/12/2018 - Hypomagnesemia 01/12/2018 - Hypophosphatemia 01/12/2018 - Ruptured abdominal aortic aneurysm (AAA) ([facility]) 01/12/2018 ruptured infrarenal AAA 01/12/2018, required emergent surgery; had an arrest enroute to [facility], resuscitated but had post-anoxic encephalopathy; postop course very complicated PAST SURGICAL HISTORY Procedure Laterality Date - ECHOCARDIOGRAM 03/10/2018 technically challenging study; LV systolic fxn normal, LVEF 60%; dilated RV; no obvious valvular abnormalities - ECHOCARDIOGRAM 01/13/2018 normal LV systolic fxn; LVEF 55-60%; mild LVH; no significant valvular abnormalities - INSERT INTRACORONARY STENT 1998 daughter states he had stent placed in the maker artery of his heart - LAP CHOLECYSTECT/CHOLANGIOGRAPHY 05-28-09 - PICC LINE INSERT[place]ICC [place]AM[place] ([place] 01/31/2018 - PICC LINE INSERT[place]AM[place] 02/01/2018 - REPAIR UMBILICAL NATAN,5+Y/O,REDUC 05-28-09 FAMILY HISTORY Problem Relation Age of Onset - None Mother - Coronary Artery Disease Father Social History Substance Use Topics - Smoking status: Never Smoker - Smokeless tobacco: Never Used - Alcohol use No Prior to Admission Medications Prescriptions Last Dose Informant Patient Reported? Taking? Chlorhexidine Gluconate (PERIDEX) 0.12 % solution No No Sig: Take 15 mL by mouth every 12 hours. Patient taking differently: Take 15 mL by mouth every 12 hours. Taking per discharge summary on 02/11 - patient came from [facility] carboxymethylcellulose sodium (REFRESH LIQUIGEL) 1 % dlgl No No Sig: Use 1-2 Drops in both eyes as needed (Dry Eyes). Patient taking differently: Use 1-2 Drops in both eyes as needed (Dry Eyes). Taking per discharge summary on 02/11 - patient came from [facility] heparin 5,000 unit/mL injection No No Sig: Inject 1 mL subcutaneously every 12 hours. Patient taking differently: Inject 5,000 Units subcutaneously every 12 hours. Taking per discharge summary on 02/11 - patient came from [facility] ipratropium-albuterol (DUONEB) 0.5 mg-3 mg(2.5 mg base)/3 mL nebu No No Sig: Inhale 3 mL as instructed four times daily. Patient taking differently: Inhale 3 mL as instructed four times daily. Taking per discharge summary on 02/11 - patient came from [facility] metoclopramide HCl (REGLAN) 5 mg/mL injection No No Sig: Inject 5 mg intravenously every 12 hours. Patient taking differently: Inject 5 mg intravenously every 12 hours. Taking per discharge summary on 02/11 - patient came from [facility] midodrine (PROAMITINE) 5 mg tablet No No Si tablets by PEG route every 8 hours. Patient taking differently: 15 mg by PEG route every 8 hours. Taking per discharge summary on 02/11 - patient came from [facility] pantoprazole (PROTONIX) 40 mg injection No No Sig: Inject 10 mL intravenously DAILY (6 AM). Patient taking differently: Inject 40 mg intravenously DAILY (6 AM). Taking per discharge summary on 02/11 - patient came from [facility] senna leaf extract 176 mg/5 mL syrp No No Si mL by OROGASTRIC route twice daily. Patient taking differently: 15 mL by OROGASTRIC route twice daily. Taking per discharge summary on 02/11 - patient came from [facility] Facility-Administered Medications: None Current hospital medications: NaCl 0.45% iv infusion 40 mL/hr INTRAVENOUS CONTINUOUS ipratropium-albuterol 3 mL nebulizer solution (DUONEB) 3 mL INHALATION QID [START ON 03/12/2018] levoFLOXacin 750 mg in D5W 150 mL (LEVAQUIN) 750 mg INTRAVENOUS q 48 HR carboxymethylcellulose sodium 1-2 Drop (CELLUVISC) 1-2 Drop BOTH EYES PRN Chlorhexidine Gluconate 0.12 % 15 mL (PERIDEX) 15 mL ORAL q 12 H heparin 5,000 Units injection 5,000 Units SUBCUTANEOUS q 8 H senna leaf extract 176 mg/5 mL 528 mg 15 mL OROGASTRIC BID pantoprazole 40 mg injection (PROTONIX) 40 mg INTRAVENOUS DAILY (6 AM) potassium chloride 80-120 mEq oral liquid 80-120 mEq ORAL/FEEDING TUBE PRN potassium chloride iv piggyback 20 mEq in sterile water 100 mL 20 mEq INTRAVENOUS PRN magnesium sulfate in water 2 g in sterile water 50 ml 2 g INTRAVENOUS PRN sodium phosphate 45 mmol in NaCl 0.9% 250 mL 45 mmol INTRAVENOUS PRN calcium gluconate 4 g in NaCl 0.9% 250 mL 4 g INTRAVENOUS PRN 0.9% NaCl 3-5 mL 3-5 mL INTRAVENOUS q 12 H fentaNYL 50 mcg/mL 25-50 mcg injection (SUBLIMAZE) 25-50 mcg INTRAVENOUS q 2 H PRN LORazepam 1 mg injection (ATIVAN) 1 mg INTRAVENOUS q 4 H PRN piperacillin-tazobactam 3.375 g in dextrose (iso-osmotic) 50 mL (ZOSYN) 3.375 g INTRAVENOUS q 8 H ALLERGIES No Known Allergies REVIEW OF SYSTEMS: he is non verbal and cannot answer questions; daughter not sure what he has been experiencing so cannot obtain meaningful ROS Objective PHYSICAL EXAM: Pleasant, comfortable, not in acute distress. GENERAL: Alert, no distress, cooperative, does not follow commands or respond appropriately to questions SKIN: No rash or lumps. HEENT: Normocephalic, face symmetrical. NECK: No jugulovenous distention, Supple; tracheostomy in place LUNGS: Clear to auscultation bilaterally. CARDIAC: Rhythm: regular rate and rhythm, Rate: normal, S1: normal intensity, S2: normal intensity, no loud murmurs or rubs ABDOMEN: Soft, nontender, bowel sounds present. EXTREMITIES: minimal edema bilaterally Body mass index is 22.31 kg/m?. O2 Therapy: Ventilator No Data Recorded Patient Vitals for the past 48 hrs: BP Temp Pulse Resp SpO2 Height Weight 03/11/18 1550 - - 87 15 100 % - - 03/11/18 1535 - - 91 24 100 % - - 03/11/18 1400 100/71 37.3 ?C (99.1 ?F) 86 15 100 % - - 03/11/18 1351 - - 86 21 100 % - - 03/11/18 1200 118/79 37.2 ?C (99 ?F) 94 27 100 % - - 03/11/18 1000 92/54 37.1 ?C (98.8 ?F) 91 24 100 % - - 03/11/18 0935 - - 86 23 100 % - - 03/11/18 0920 - - 86 17 99 % - - 03/11/18 0800 133/79 37.7 ?C (99.9 ?F) 96 (!) 32 100 % - - 03/11/18 0700 125/74 37.6 ?C (99.7 ?F) 93 25 100 % - - 03/11/18 0600 123/70 37.5 ?C (99.5 ?F) 91 22 100 % - 76.7 kg (169 lb 1.5 oz) 03/11/18 0500 117/84 37.5 ?C (99.5 ?F) 96 27 100 % - - 03/11/18 0400 132/65 37.1 ?C (98.8 ?F) 95 24 100 % - - 03/11/18 0313 - - 92 24 - - - 03/11/18 0300 95/54 37.1 ?C (98.8 ?F) 92 21 100 % - - 03/11/18 0200 94/58 37.1 ?C (98.8 ?F) 90 19 100 % - - 03/11/18 0100 98/66 37.3 ?C (99.1 ?F) 90 20 100 % - - 03/11/18 0000 107/82 37.5 ?C (99.5 ?F) 100 26 98 % - - 03/10/18 2309 - - 100 24 - - - 03/10/18 2300 96/60 37.5 ?C (99.5 ?F) 97 19 99 % - - 03/10/18 2200 93/54 37.5 ?C (99.5 ?F) 94 20 100 % - - 03/10/18 2100 101/73 37.8 ?C (100 ?F) 104 27 100 % - - 03/10/18 2000 104/64 37.8 ?C (100 ?F) 102 24 100 % - -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 ([place]) 01/31/2018 - PICC LINE INSERTION (PICC TEAM) ([place]) 02/01/2018 - REPAIR UMBILICAL NATAN,5+Y/O,REDUC 05-28-09 SOCIAL HISTORY Social History Substance Use Topics - Smoking status: Never Smoker - Smokeless tobacco: Not on file - Alcohol use No FAMILY HISTORY Problem Relation Age of Onset - Coronary Artery Disease Father - None Mother Family history was reviewed and non-contributory. ALLERGIES No Known Allergies MEDICATIONS: midodrine (PROAMITINE) 5 mg tablet, 3 tablets by PEG route every 8 hours. carboxymethylcellulose sodium (REFRESH LIQUIGEL) 1 % dlgl, Use 1-2 Drops in both eyes as needed (Dry Eyes). ipratropium-albuterol (DUONEB) 0.5 mg-3 mg(2.5 mg base)/3 mL nebu, Inhale 3 mL as instructed four times daily. Chlorhexidine Gluconate (PERIDEX) 0.12 % solution, Take 15 mL by mouth every 12 hours. heparin 5,000 unit/mL injection, Inject 1 mL subcutaneously every 12 hours. metoclopramide HCl (REGLAN) 5 mg/mL injection, Inject 5 mg intravenously every 12 hours. senna leaf extract 176 mg/5 mL syrp, 15 mL by OROGASTRIC route twice daily. pantoprazole (PROTONIX) 40 mg injection, Inject 10 mL intravenously DAILY (6 AM). REVIEW OF SYSTEMS: Unable to obtain PHYSICAL EXAMINATION: BP 100/63 Pulse 93 Temp 99 Resp 18 Ht 6' 1 (1.85m) Wt 166 lb 10.7 oz (75.6kg) SpO2 97% BMI 21.99 kg/(m2). General: Chronically ill intubated sedated partial posturing or contracted Eyes: No subconjunctival hemorrhage Skin: No rash, bruising Oropharynx: Mucous membranes normal Neck: No jugular venous distention, no HJR, no carotid bruits. Lymph: No cervical lymphadenopathy Chest: Normal in ap diameter. No surgical scars or implants. No devices or ports Lungs: Mild bilateral rhonchi rhonchi. Heart: Rhythm is regular. No Lifts or heaves. PMI is not displaced. S1, S2 normal, S4 no appreciable S3, no appreciable murmur or due to vent noise . Abdomen: Surgical gauze in the mid abdomen as part of wound management. Extremities: No peripheral edema VAscular: Pulses are symmetric. No bruits over the major vascular beds.Capillary refill at the toes 2+ Neuro: Unable to fully assess at presentation Gait was not tested. LABS 03/10/18 03/10/18 03/09/18 0800 0330 2055 TROPI -- -- 0.020 WBC -- 10.64* 26.07* RBC -- 2.36* 2.83* HB 7.6* 6.8* 8.1* HCT -- 22.2* 26.7* MCV -- 94.1 94.3 MCH -- 28.8 28.6 MCHC -- 30.6* 30.3* PLT -- 216 268 MPV -- 9.6 10.0 GLUC -- 97 128* BUN -- 60* 63* CREAT -- 1.59* 1.64* NA -- 144 142 K -- 4.1 4.2 CHLOR -- 114* 111* CO2 -- 24 22 TPROT -- -- 7.9 ALB -- -- 2.2* CA -- 8.6 9.4 ALKPHOS -- -- 152* TBILI -- -- 0.8 AST -- -- 39* ALT -- -- 34 MG -- -- 2.4 Triglyceride 266 02/06/2018 EK lead EKG shows normal sinus rhythm. IA and QT intervals are normal. There are no ST segment changes suggestive of ischemia or infarction. Radiology this admission: CXR: Bibasilar atelectasis Impression/Recommendations 1. Syncope It is unfortunate that that we cannot retrieve any telemetry data from the referring facility. Based on clinical history. The pattern of bowel movement preceding episodes of bradycardia and asystole would suggest an intense vasovagal reaction. We cannot discount the possibility of the arithmetic genic syncope or an ischemic trigger event. The patient reportedly has a substrate of systemic atherosclerosis (AAA repair and a history of stent to the left anterior descending and the remote past. It is fortuitous at that the patient has not precipitated a full myocardial event in spite of the above mentioned medical events. With regards to management . He is currently on telemetry. For further monitoring and perhaps an implantable loop recorder may entertained ; however, the patient has open wounds and in based on the potential for recurrent infections this may be a relative contraindication. By the same reasons permanent pacemaker for management of intense a vasovagal mediated syncope may be a difficult. I will certain daily as the electrophysiology team to render an opinion in this regard. With regards to management of coronary atherosclerosis. Continue aspirin antiplatelet therapy and statin therapy should doing. No clear indication for Full ischemic workup. Thank you for allowing me to participate in the care of this patient. Further recommendations to follow depending on clinical course. Our cardiac advanced nurse practitioner (ANP/PNEUMATIC TUBE OPERATOR) will follow in the am. Please don't hesitate to contact me, or the microphone boom operator chef teacher, if there are any questions regarding the care of the patient. Rony Rai MD, [facility]. March 10, 2018 Pager: [phone] PROGRESS Observed: 03/10/2018 Status: COMPLETED Source: [place] 11:42 AM CLINIC OTHER CAMPUS REPOSITORY HNO ID: [id number] Author: Lora Soliz Service: Critical Care Author Type: Physician Type: Progress Notes Filed: 03/10/2018 11:51 AM Note Text: [facility] STAFF PHYSICIAN NOTE OF PERSONAL INVOLVEMENT IN CARE I have reviewed the documentation by the resident and I personally participated in the coleman components. I have discussed the case and management of the patient's care. Patient seen and examined. The following comments revise or confirm relevant coleman components of the note. Discussed in team rounds. Data: Labs: all reviewed CXR: not bad; KUB IMPRESSION: ? No dilated gas-filled loops of bowel. ?Supine evaluation does not evaluate for free air. ?Percutaneous gastrostomy tube favored in the left upper quadrant. ? There are surgical clips in the left hemiabdomen and upper pelvis. ?Metallic fragment noted over the right upper quadrant. ?No significant interval change cx data: pending Medications reviewed. Critical Care Documentation: The patient has the following organ/system impairment(s): Acute kidney injury, Arrhythmias, Circulatory shock, Complex life-threatening medical problem(s), Encephalopathy and Respiratory failure (Acute, Acute on Chronic, with Hypercapnea) ASS: 1. Symptomatic bradycardia, ?CAD no VT; ?drug ?aspiration and vagal BM events per son; doubt drug 2. AAA with complications 10 weeks post MSOD 3. Improved severe anoxic brain injury, still severe; LE minimal motor ?spinal artery event ?CCNmyopathy 4. Anemia, acute on chronic; also dropped with hemodilution 5. CRI, but off HD 6. Improved lactic acidosis, acute 7. Possible UTI pyuruia POA 8. Reported TF aspiration when flat per son!! 9. Hx CAD, stents 10. Wounds better 11. Hx Enterobacter pneumonia, not active 12. Possible septic shock with LA, hypotension, transient wbc, at risk MMP PLAN: 1. Echo; cardio to see; suspect noninvasive eval; no clear pacer need but need strips 2. Back on vent support; was on trach collar off vent ltac 3. Hold reglan but doubt cause of his UE spasticity; he does aspirate TF at ltac per son; also now on Levoflox risk; low TF 4. Post RBC 5. Off baclofen 6. No tele records from ?ltac, called physician, unclear , no clear AVB 7. periodic breathing seth smith in past, plus vagal with BMs per family ?contributed celi 8. atb x 3; ID to see if complex 9. Off norepi. Dopamine for celi apparently never started at LTAC pre arrest. Appropriate adjustments will be made based on available data and information Discussed with bedside staff/ patient/ family son and daughter twice and lengthy update ; still aggressive care requested in part given recent neuro improvement at LTAC; they never would agree to DNR here or ltac . This patient has a high probability of sudden, clinically significant deterioration, which requires the highest level of physician preparedness to intervene urgently. I managed/supervised life or organ supporting interventions that required frequent physician assessment. I devoted my full attention to the direct care of this patient for the amount of time indicated below. Time I spent with family or surrogate(s) is included only if the patient was incapable of providing the necessary information or participating in medical decision making. Time devoted to teaching is not included. Time spent providing critical care services: 35 minutes excluding procedures. SIGNATURE: Lora Soliz MD [facility] TIME of SERVICE: 11:42 AM EKG (AK,AV,EU,FV,HL,CYNTHIA,MM,SP) Observed: Status: F Source: [place] 03/10/2018 9:19 AM CLINIC OTHER CAMPUS REPOSITORY NAME : NAVEEN AKINS PID : [id number] : 1940 Gender : Male Race : ORD : [id number] Procedure Date : Mar 10 2018 09:19 Edit Date : Mar 10 2018 21:00 Diagnosis:SINUS RHYTHM WITH OCCASIONAL PREMATURE VENTRICULAR COMPLEXES PROLONGED QT ABNORMAL ECG WHEN COMPARED WITH ECG OF 07-FEB-2018 13:51, PREMATURE VENTRICULAR COMPLEXES ARE NOW PRESENT T WAVE INVERSION NO LONGER EVIDENT IN ANTERIOR LEADS Confirmed by Simi Esqueda M.D. ([id number]) on 03/10/2018 9:00:00 PM Ventricular Rate : 96 BPM Atrial Rate : 96 BPM P-R Interval : 160 ms QRS Duration : 80 ms Q-T Interval : 384 ms QTC Calculation(Bezet) : 485 ms P [place] : 66 degrees R [place] : 22 degrees T [place] : 45 degrees Test Reason : Arrhythmia Location : 48 : [place] [address] Overread By : Simi Esqueda M.D. Editted By : Simi Esqueda M.D. Referred By : LORA SOLIZ Acquired by : Chantell GREENE HGB Collected: 03/10/2018 Status: F Source: [facility] 8:00 AM HEALTH SYSTEM REPOSITORY TYPE CODE TESTS RESULT OUT OF RANGE REFERENCE UNITS LAB HGBI(LOINC) 13.7-17.5 g/dL Low Hgb 7.6 Performed By: #### HGBI #### [facility] [address] [place], [place] [address] PROGRESS Observed: 03/10/2018 Status: COMPLETED Source: [place] 7:59 AM [facility] REPOSITORY HNO ID: [id number] Author: Herman Sutton Service: Critical Care Author Type: Physician Type: Progress Notes Filed: 03/10/2018 8:03 AM Note Text: CODE BLUE NOTE PATIENT NAME: Naveen Akins Date of Code Event: 03/09/2018 Location: [facility] Time of Event: 2042 Witnessed Event?:yes Type of arrest: PEA Rhythm at the start of the event: Bradycardia Code Leader: Herman Sutton MD AIRWAY MANAGEMENT: Please refer to Anesthesia procedure note for details Patient with trach, he was bagged and was connected to the vent at the end of the code OUTCOME: Return of spontaneous circulation after 1 cycle of CPR POST RESCUCITATION CARE: -- Interventions completed: vital signs; Echo; Labs; CXR; 12 lead ECG; ABG -- Recommended post-rescuscitation care to be done in ICU:IVF bolus given, levophed started Critical Care Time: I personally spent 30 minutes directly supervising and providing critical care in the prevention of imminent deterioration as noted above, exclusive of any procedures I performed or supervised. I have reviewed, approved and signed the Code Sheet. Please refer to this for complete orders and nursing/respiratory documentation. SIGNATURE: Heramn Sutton MD DATE of SERVICE: 03/09/2018 TIME of SERVICE: 900pm This is an electronically created document. IF PRINTED, PLEASE DO NOT REMOVE FROM THE CHART OR MODIFY PRINTED COPY. ALLIED HEALTH Observed: 03/10/2018 Status: COMPLETED Source: [place] 7:55 AM [facility] REPOSITORY HNO ID: [id number] Author: Nicky Russell (Chaplain), Student Service: Spiritual Care Author Type: Envelope Stamping Machine Operator Type: Allied Health Filed: 03/10/2018 7:57 AM Note Text: SPIRITUALCARE Spiritual Care Visit- Brief Note Name: Naveen Akins Date: March 10, 2018 Notes: Provided Spiritual Care for two family members in MICU waiting room -- offered prayer for their father who almost but he was brought back. Envelope Stamping Machine Operator Signature: Chaplain Yuri To contact the [facility] Department: Please call [phone] or Page the On-Call Envelope Stamping Machine Operator at pager [phone] Thank you for the opportunity to be of service. This is an electronically created document. IF PRINTED, PLEASE DO NOT REMOVE FROM THE CHART OR MODIFY PRINTED COPY. PROGRESS Observed: 03/10/2018 Status: COMPLETED Source: [place] 6:37 AM [facility] REPOSITORY HNO ID: [id number] Author: Tristan Holguin MD Service: Critical Care Author Type: Resident Type: Progress Notes Filed: 03/10/2018 1:46 PM Note Text: Attestation signed by Lora Soliz at 03/10/2018 2:51 PM See and Link to Dr Lora Soliz progress note/attestation today. MICU - PROGRESS NOTE SERVICE DATE: 03/10/2018 SERVICE TIME: 6:38 AM Admission Date: 03/09/2018 AGE: [id number] year old LOS: 1 days Subjective REASON FOR ICU ADMISSION: Confusion and Cardiac Arrest Patient Overview: Naveen Akins is a 78 year-old male with a PMH of ruptured AAA, ileus, and respiratory failure who presented from [facility] after cardiac arrest. Occurred 5 times yesterday where advised not to do compressions do to surgical repair of AAA. Pateint was brought to the ICU with increased somnolence, and spasms of the upper limbs. Patient coded again in the ICU. Reverted to normal rhythm in the ICU after CPR. Patient became hypotensive at 80/49 so was given 500 mL bolus and started on levophed. Central femoral line was placed. CBC showed WBC of 26 and lactic acid of 5.2. Blood, urine, and sputum cultures were ordered. ECHO ordered as well. Empirically started on Vanc, Zosyn, and levoquin. Objective PROBLEMS: ACTIVE PROBLEM LIST Gallstone Pancreatitis Ruptured Abdominal Aortic Aneurysm (Aaa) (Hcc) Dic (Disseminated Intravascular Coagulation) (Hcc) Acute Respiratory Failure (Hcc) Cardiac Arrest (Hcc) Hypokalemia Hypomagnesemia Hypophosphatemia Anoxic Encephalopathy (Hcc) Aaa (Abdominal Aortic Aneurysm, Ruptured) (Hcc) Obesity, Class I, Bmi 30-34.9 Terence (Acute Kidney Injury) (Hcc) Ileus (Hcc) Acute Liver Failure Without Hepatic Coma Acute On Chronic Respiratory Failure (Hcc) VITAL SIGNS (last 24hrs min/max): BP 114/63 Pulse 81 Temp 98.1 Resp 13 Ht 6' 1 (1.85m) Wt 166 lb 10.7 oz (75.6kg) SpO2 100% BMI 21.99 kg/(m2). Temp (24hrs), Av.2 ?C (97.1 ?F), Min:35.1 ?C (95.2 ?F), Max:36.7 ?C (98.1 ?F) NET FLUID BALANCE Intake/Output Summary (Last 24 hours) at 03/10/18 0638 Last data filed at 03/10/18 0600 Gross per 24 hour Intake 2316.5 ml Output 295 ml Net 2021.5 ml Lines, Drains, and Airways Line Peripheral Admission to Hospital Right Wrist 20 Gauge -- days Central Line Triple Lumen 03/09/18 Right Groin 1 day Peripheral 03/09/18 2030 Right Arm 20 Gauge less than 1 day Drain GI Feed/Drain Admission to Hospital Gastrostomy Left Upper Quadrant Abdomen -- days Airway Airway Shiley -- days PHYSICAL EXAM PERFORMED: General: sedated Neck: trach tube in place Cardiac: RRR, S1S2 with no MGR Lungs: Clear breath sounds bilaterally Abdomen: Soft non-tender, non-distended, normal bowel sounds. G-tube in place and vertical wound from AAA repair covered. Extremities: No deformities, edema, clubbing or skin discoloration. DATA: LABS: Recent Labs 03/10/18 0330 03/09/182054 TROPI -- 0.020 WBC 10.64* 26.07* RBC 2.36* 2.83* HB 6.8* 8.1* HCT 22.2* 26.7* MCV 94.1 94.3 PLT 216 268 GLUC 97 128* BUN 60* 63* CREAT 1.59* 1.64* NA 144 142 K 4.1 4.2 CHLOR 114* 111* CO2 24 22 TPROT -- 7.9 ALB -- 2.2* CA 8.6 9.4 ALKPHOS -- 152* TBILI -- 0.8 AST -- 39* ALT -- 34 MG -- 2.4 Assessment/Plan 1. Shock, Septic v Cardiac 2. Acute on chronic anemia 3. Altered Mental Status in context of hx of anoxic brain injury (may have infectious component involved) 4. Lactic Acidosis (resolved) 5. Possible UTI (has chronic sanchez in place) PLAN: Neurologic -EEG ordered Pulmonary -Currently on Vent for respiratory support. Cardiovascular -Given 500 mL bolus. Currently NS @ 75 mL/hr and on levophed. -Cardiology consulted -ECHO pending -Transfused 1 unit PRBCs with appropriate rise in hgb (6.8 to 7.6) Renal/Fluids/Electrolytes -On 75 mL/hr NS for maintenance -Lactic acid 0.8 (down from originally 5.2) GI/Metabolic/Nutrition -On PPI for stress ulcer prophylaxis -Tube feeds @ 20 mL/hr -Holding home reglan Hematologic/Infectious Disease -Currently on Vanc, Zosyn and levoquin for empiric coverage of possible sepsis -Blood, Urine, and sputum cultures pending SIGNATURE: Tristan Holguin MD PATIENT NAME: Naveen Akins DATE: March 10, 2018 TIME: 6:38 AM PAGER: [phone] TYPE AND SCREEN Collected: 03/10/2018 Status: F Source: [facility] 4:45 AM [facility] SYSTEM REPOSITORY TYPE CODE TESTS RESULT OUT OF REFERENCE UNITS RANGE LAB ABO(LOINC) O ABO Group LAB CREATIVE DEVELOPER(LOINC ) RH Type Positive LAB ABSCR(LOIN C) Antibody NEGATIVE Screen LAB BBCMT(LOIN C) Comment See Below Result Comment: Screen &/or Xmatch expires in 3 days at 12 midnight. Redraw patient at that time. Performed By: #### T&S #### [facility] [address] [place], [place] [address] RBC PRODUCTS Collected: 03/10/2018 Status: F Source: [facility] 4:45 AM [facility]ALTH SYSTEM REPOSITORY TYPE CODE TESTS RESULT OUT OF REFERENCE UNITS RANGE LAB UNIT1(LOINC ) Xmatch Unit 1 see below Result Comment: Compatible Performed By: #### RBCPS #### [facility] [address] [place] [address] BASIC PANEL Collected: 03/10/2018 Status: F Source: [facility] 3:30 AM [facility] REPOSITORY TYPE CODE TESTS RESULT OUT OF REFERENCE UNITS RANGE LAB NA(LOINC) 136-145 mEq/L Sodium Blood 144 LAB K(LOINC) 3.5-5.1 mEq/L Potassium Blood 4.1 LAB CL(LOINC) 98-107 mEq/L Chloride High Blood 114 LAB CO2(LOINC) 21-32 mEq/L CO2 Blood 24 LAB GLU(LOINC) 70-99 mg/dL Glucose Blood 97 LAB BUN(LOINC) 7-18 mg/dL BUN High Blood 60 LAB CREA(LOINC 0.67-1.17 mg/dL ) High Creatinine Blood 1.59 LAB CA(LOINC) 8.5-10.1 mg/dL Calcium Blood 8.6 LAB ANGAP(LOIN 8-16 C) Anion Gap 10 Performed By: #### P8 #### [facility] [address] [place] [address] HEMOGRAM Collected: 03/10/2018 Status: F Source: [facility] 3:30 AM [facility] SYSTEM REPOSITORY TYPE CODE TESTS RESULT OUT OF REFERENCE UNITS RANGE LAB WBC(LOINC) 4.23-9.07 thou/cmm High WBC 10.64 LAB RBC(LOINC) 4.63-6.08 mil/cmm Low RBC 2.36 LAB HGB(LOINC) 13.7-17.5 g/dL Low alert Hgb 6.8 LAB HCT(LOINC) 40.1-51.0 % Low Hct 22.2 LAB MCV(LOINC) 83.2-95.6 fl MCV 94.1 LAB MCH(LOINC) 25.7-32.2 pg MCH 28.8 LAB MCHC(LOINC) 32.3-36.5 % Low MCHC 30.6 LAB RDW(LOINC) 11.6-14.4 % High RDW 16.5 LAB RDWSD(LOINC 36.1-45.8 fl ) High RDW SD 56.1 LAB PLT(LOINC) 141-365 thou/cmm Platelet 216 LAB MPV(LOINC) 8.7-12.0 fl MPV 9.6 Performed By: #### CBC1 #### [facility] [address] [place] [address] LACTIC ACID Collected: 03/10/2018 Status: F Source: [facility] 12:30 AM HEALTH SYSTEM REPOSITORY TYPE CODE TESTS RESULT OUT OF REFERENCE UNITS RANGE LAB LAC(LOINC) 0.4-2.0 mEq/L Lactic Acid 0.8 Performed By: #### LAC #### [facility] [address] [place] [address] HEMOGLOBIN A1C Collected: 03/10/2018 Status: F Source: [facility] 12:30 AM [facility] SYSTEM REPOSITORY TYPE CODE TESTS RESULT OUT OF REFERENCE UNITS RANGE LAB LA1C2(LOINC 4.5-6.2 % ) Hgb A1c 5.1 LAB ESAV(LOINC) mg/dl Est. Avg. 100 Glucose Performed By: #### LA1C #### [place] [address] URINALYSIS ROUTINE Collected: 03/09/2018 Status: F Source: [facility] 10:45 PM HEALTH SYSTEM REPOSITORY TYPE CODE TESTS RESULT OUT OF RANGE REFERENCE UNITS LAB COLOR(LOIN C) Urine Color YELLOW LAB APPUR(LOIN C) Urine Appearance CLOUDY LAB GLUUR(LOIN Negative mg/dL C) Glucose Urine NEGATIVE LAB KETON(LOIN Negative mg/dL C) Ketone Urine NEGATIVE LAB HGBUR(LOIN Negative C) Abnormal Hemoglobin,Urin SMALL e LAB PROTU(LOIN Negative mg/dL C) Abnormal Protein Urine 30 LAB NITRI(LOIN Negative C) Nitrites Urine NEGATIVE LAB BILIU(LOIN Negative C) Bilirubin Urine NEGATIVE LAB SPG(LOINC) 1.005-1.030 Specific 1.016 [place], Ur LAB PHUR(LOINC 5.0-8.0 ) pH,Urine 6.0 LAB UROBI(LOIN 0.0-1.0 EU/dL C) Urobilinogen,Ur 0.2 LAB LEUKO(LOIN Negative C) Abnormal Leukocytes LARGE Esterase LAB RBCU1(LOIN 0.0-5.0 /hpf C) High RBC,Urine 11.8 LAB WBCU1(LOIN 0.0-5.0 /hpf C) High WBC, Urine 166.5 LAB EPIT1(LOIN 0.0-5.0 /hpf C) Ep Cells Urine 4.0 LAB BACT1(LOIN None C) Abnormal Bacteria Urine 4+ LAB HYCA1(LOIN 0.0-1.0 /lpf C) High Hyaline Cast 3.9 Performed By: #### URIN2 #### [facility] [address] [place] [address] BLOOD GAS ARTERIAL Collected: 03/09/2018 Status: F Source: [facility] 10:45 [facility] REPOSITORY TYPE CODE TESTS RESULT OUT OF REFERENCE UNITS RANGE LAB FIO2(LOINC % ) FIO2 40 LAB TEMPA(LOIN C) Temperature 37.0 LAB PH(LOINC) 7.350-7.450 pH Arterial 7.447 LAB PCO2(LOINC 36.0-46.0 mm Hg ) Low PCO2 Arterial 31.2 LAB PO2(LOINC) 85.0-96.0 mm Hg PO2 High Arterial 188.0 LAB HCO3A(LOIN 22.0-26.0 mEq/L C) Low HCO3- 21.1 LAB O2%A(LOINC 95.0-98.0 % ) O2% Sat High Arterial 99.1 LAB BASEX(LOIN -2.5 to 2.5 mEq/L C) Base Excess -2.6 Performed By: #### ABG #### [facility] [address] [place] [address] IONIZED CALCIUM Collected: 03/09/2018 Status: F Source: [facility] 10:45 PM HEALTH SYSTEM REPOSITORY TYPE CODE TESTS RESULT OUT OF REFERENCE UNITS RANGE LAB CAION(LOINC 4.43-4.93 mg/dL ) High Ionized 5.14 Calcium LAB PHCAI(LOINC 7.320-7.420 ) pH High 7.446 LAB CAPH(LOINC) 4.36-4.73 mg/dL High Ionized 5.26 Ca,PH7.4 Performed By: #### IONCA #### [facility] [address] [place] [address] Observed: 03/09/2018 Status: F Source: [facility] BLOOD 10:45 PM HEALTH SYSTEM REPOSITORY Test performed at [facility] No growth Performed By: #### C_BLO #### [facility] [address] [place] [address] Observed: 03/09/2018 Status: F Source: [facility] URINE 10:45 PM HEALTH SYSTEM REPOSITORY Test performed at [facility] ORGANISM: Enterobacter cloacae (ID: 1) >100,000 CFU/ml Performed By: #### C_URI #### [facility] [address] [place] [address] CHEST 1 VIEW Observed: 03/09/2018 Status: F Source: [facility] 10:10 PM HEALTH SYSTEM REPOSITORY Performed at [facility] APPROVED BY: TIM LEIJA MD EXAM: CHEST 1 VIEW HISTORY: Acute respiratory illness COMPARISON: 02/08/2018 FINDINGS: See impression IMPRESSION: Endotracheal tube tip projects approximately 3 cm above the kianna. Defibrillation pad and EKG leads are also noted. Tubing also projects over the left upper quadrant of the abdomen. Correlate clinically. Cardiomediastinal contours are stable. Atherosclerotic calcification noted within the aorta. Coronary artery stent is noted. Bibasilar subsegmental atelectasis favored. Left lower lobe infiltrate not excluded. No obvious pleural effusion or pneumothorax on this limited supine technique. Bones appear stable. ABDOMEN 1 VIEW Observed: 03/09/2018 Status: F Source: [facility] 10:10 PM HEALTH SYSTEM REPOSITORY Performed at [facility] APPROVED BY: TIM LEIJA MD EXAM: ABDOMEN 1 VIEW HISTORY: Abd pain, unspecified COMPARISON: 02/08/2018 FINDINGS: See impression IMPRESSION: No dilated gas-filled loops of bowel. Supine evaluation does not evaluate for free air. Percutaneous gastrostomy tube favored in the left upper quadrant. There are surgical clips in the left hemiabdo men and upper pelvis. Metallic fragment noted over the right upper quadrant. No significant interval change. PROCEDURE Observed: 03/09/2018 Status: COMPLETED Source: [place] 9:57 PM [facility] REPOSITORY HNO ID: [id number] Author: Goldie Duenas Service: Critical Care Author Type: Resident Type: Procedures Filed: 03/09/2018 10:05 PM Note Text: Attestation signed by Herman Sutton at 03/10/2018 12:54 AM I was present, participated inn and supervised the whole procedure BEDSIDE PROCEDURE NOTE PROCEDURE DATE: March 09, 2018 PROCEDURE START TIME: 9:15 PM PRIMARY PROCEDURALIST: Goldie Duenas MD INFORMED CONSENT: Informed Consent obtained and on the chart UNIVERSAL PROTOCOL / SAFETY CHECKLIST Sign in Communication: Completed Time Out: Team Confirms the Correct Patient, Correct Procedure, Correct Site and Site Marking, Correct Position (if applicable), Prep and Dry Time (if applicable). Time: 9:45 pm Affirmation of Time Out: YES Sign Out Discussion: Completed PROCEDURE: CENTRAL VENOUS LINE INSERTION Indication: Vasoactive medication Insertion Type: New stick Site: Right femoral vein Inserted By: Resident Supervision: Dr Sutton [facility] Central Line Insertion checklist, attached to the Central Line-Associated Bloodstream Infection Prevention Policy, was utilized during this procedure. Ultrasound Used for Insertion: Yes, image not captured All personnel involved with the procedure used caps, masks with eye blackwood, sterile gowns and sterile gloves. The area was prepped with chlorhexidine gluconate and draped with a full-body sterile drape following the usual aseptic technique . Anesthesia was obtained with local infiltration of 1% lidocaine. The vessel was cannulated under direct ultrasound visualization with a 6.35 cm, 18 gauge single lumen catheter on the first attempt. The vessel was transduced to confirm venous placement. A J-tipped spring wire was passed into the vein through the indwelling catheter and left in situ while the catheter was removed. A small skin incision was made and the tract was dilated with a semi-rigid tissue dilator. A 20 cm triple-lumen, 7 Fr, non-tunneled, pressure injectable, antimicrobial catheter was advanced over the guidewire and left in situ while the guidewire was removed. All ports were capped with sterile site caps, venous blood was aspirated from all ports and all ports were flushed with sterile saline solution. An antimicrobial-impregnated protective disk was placed around the catheter, the catheter was secured in place at 20 cm with sterile sutures and a sterile, transparent, occlusive dressing was placed over the site. All catheters, needles and wires were accounted for and intact. The patient tolerated the procedure well and without apparent complications No Specimens Collected Unless Noted Here Estimated Blood Loss: None SIGNATURE: Goldie Duenas MD PATIENT NAME: Naveen Akins DATE: March 09, 2018 TIME: 9:57 PM PAGER/CONTACT #: [phone] PROGRESS Observed: 03/09/2018 Status: COMPLETED Source: [place] 9:30 PM CLINIC OTHER CAMPUS REPOSITORY HNO ID: [id number] Author: Herman Sutton Service: Critical Care Author Type: Physician Type: Progress Notes Filed: 03/10/2018 7:58 AM Note Text: Please link this note to the resident note written on 06/10/17 [facility] STAFF PHYSICIAN NOTE OF PERSONAL INVOLVEMENT IN CARE I have reviewed the nte obtained and documented by the resident and I personally participated in the coleman components. I have discussed the case and management of the patient's care. The following comments revise or confirm relevant coleman components of the note. 78 yo rosa isela with complicated PMH, recent AA rupture requiring exploratory laparotomy and repair,prolonged hospitalization with chronic respiratory failure requiring trach and PEG, also severe ileus, who was sent from [facility] for severe bradycardia requiring CPR for almost 40 seconds once, he was bagged multiple times there as it was thought related to hypoxia, patient was transferred for dopamine drip but when he got into our ICU he had a cardiac arrest requiring 1 epinephrine and 3 min of CPR with ROSC, patient was at his baseline( in terms of mental status) after that but was hypotensive and levophed was started and he received 1.5l of NSS IMPRESSION: S/p Cardiac arrest from bradycardia Bradycardia unclear etiology at this moment, he is on higher dose of midodrine compared to when he was in [place] which can be contributing to it, also per family these episodes of bradycardia happened everytime patient was trying to have a bowel mvt so suspect a vasovagal component in addition to medication induced Shock that could be septic with UTI on UA, doubt cardiogenic as he responded to fluids in terms of pressors requirements Lactic acidosis improved CKD Anemia with some drop in his Hb, no active bleeding and pressors requirements going down, if continues to drop might need to re image his abdomen giving the h/o AAA rupture Upper extremities rigidity PLAN: Full vent support Norepinephrine to keep MAP> 65 Hold midodrine for now Broad spectrum ABx after pancx Trend LA TTE in the morning Transfuse 1 u of PRBC Recheck Hb If drop again or increase in pressors requirements then ct abdomen and pelvis to r/o RP bleed/ bleeding from AAA reglan can cause acute dystonic disorder, rigidity improved with benadryl, will keep reglan on hold for now Keep NPO ICU prophylaxis Patient/Family Updated: Patient's family updated regarding the goals of care, medical plan for the day, employee relations consultant recommendations, medical disposition and current medical condition/prognosis as and if clinically indicated. All questions and concerns were answered and addressed at this juncture. They were notified on March 09, 2018 at 930pm. The duration of the conversation was 20 minutes. This patient has a high probability of sudden, clinically significant deterioration, which requires the highest level of physician preparedness to intervene urgently. I managed/supervised life or organ supporting interventions that required frequent physician assessment. I devoted my full attention to the direct care of this patient for the amount of time indicated below. Time I spent with family or surrogate(s) is included only if the patient was incapable of providing the necessary information or participating in medical decision making. Time devoted to teaching and to any procedures I billed separately is not included. Critical Care Documentation: The patient has the following organ/system impairment(s): s/p cardiac arrest, bradycardia, shock Time spent providing critical care services: 50 minutes. SIGNATURE: Herman Sutton MD [facility] DATE of SERVICE: 03/09/18 TIME of SERVICE: 2129 PLAN OF CARE Observed: 03/09/2018 Status: COMPLETED Source: [place] 9:02 PM CLINIC OTHER CAMPUS REPOSITORY O ID: [id number] Author: Berta Duenas (Pharmacist) Service: (none) Author Type: Pharmacist Type: Plan of Care Filed: 03/09/2018 9:05 PM Note Text: MEDICATION HISTORY AND MEDICATION RECONCILIATION Patient Name:Tom Akins : 1940 Source of history:correction/Other MAR - Discharge Summary on 02/11 Medication Nonadherence Identified: No barriers noted - [facility] The above information represents the best possible medication history: Yes Reconciliation completed? Yes All [employer] medications addressed by LIP Additional comments: N/A Allergies: ALLERGIES No Known Allergies Preferred Pharmacy: [facility] ([phone]), however, patient was admitted from [facility] Current SHER[employer]GE[employer] Medications: Prior to Admission medications as of 03/09/182101 Medication Sig Last Dose Taking midodrine (PROAMITINE) 5 mg tablet 3 tablets by PEG route every 8 hours. Patient taking differently: 15 mg by PEG route every 8 hours. Taking per discharge summary on 02/11 - patient came from [facility] carboxymethylcellulose sodium (REFRESH LIQUIGEL) 1 % dlgl Use 1-2 Drops in both eyes as needed (Dry Eyes). Patient taking differently: Use 1-2 Drops in both eyes as needed (Dry Eyes). Taking per discharge summary on 02/11 - patient came from [facility] ipratropium-albuterol (DUONEB) 0.5 mg-3 mg(2.5 mg base)/3 mL nebu Inhale 3 mL as instructed four times daily. Patient taking differently: Inhale 3 mL as instructed four times daily. Taking per discharge summary on 02/11 - patient came from [facility] Chlorhexidine Gluconate (PERIDEX) 0.12 % solution Take 15 mL by mouth every 12 hours. Patient taking differently: Take 15 mL by mouth every 12 hours. Taking per discharge summary on 02/11 - patient came from [facility] heparin 5,000 unit/mL injection Inject 1 mL subcutaneously every 12 hours. Patient taking differently: Inject 5,000 Units subcutaneously every 12 hours. Taking per discharge summary on 02/11 - patient came from [facility] metoclopramide HCl (REGLAN) 5 mg/mL injection Inject 5 mg intravenously every 12 hours. Patient taking differently: Inject 5 mg intravenously every 12 hours. Taking per discharge summary on 02/11 - patient came from [facility] senna leaf extract 176 mg/5 mL syrp 15 mL by OROGASTRIC route twice daily. Patient taking differently: 15 mL by OROGASTRIC route twice daily. Taking per discharge summary on 02/11 - patient came from [facility] pantoprazole (PROTONIX) 40 mg injection Inject 10 mL intravenously DAILY (6 AM). Patient taking differently: Inject 40 mg intravenously DAILY (6 AM). Taking per discharge summary on 02/11 - patient came from [facility] March 09, 2018 9:02 PM HEMOGRAM Collected: 03/09/2018 Status: F Source: [facility] 8:55 PM HEALTH SYSTEM REPOSITORY TYPE CODE TESTS RESULT OUT OF REFERENCE UNITS RANGE LAB WBC(LOINC) 4.23-9.07 thou/cmm High alert WBC 26.07 LAB RBC(LOINC) 4.63-6.08 mil/cmm Low RBC 2.83 LAB HGB(LOINC) 13.7-17.5 g/dL Low Hgb 8.1 LAB HCT(LOINC) 40.1-51.0 % Low Hct 26.7 LAB MCV(LOINC) 83.2-95.6 fl MCV 94.3 LAB MCH(LOINC) 25.7-32.2 pg MCH 28.6 LAB MCHC(LOINC) 32.3-36.5 % Low MCHC 30.3 LAB RDW(LOINC) 11.6-14.4 % High RDW 16.5 LAB RDWSD(LOINC 36.1-45.8 fl ) High RDW SD 56.8 LAB PLT(LOINC) 141-365 thou/cmm Platelet 268 LAB MPV(LOINC) 8.7-12.0 fl MPV 10.0 Performed By: #### CBC1 #### [place] [address] LACTIC ACID Collected: 03/09/2018 Status: F Source: [facility] 8:55 PM HEALTH SYSTEM REPOSITORY TYPE CODE TESTS RESULT OUT OF REFERENCE UNITS RANGE LAB LAC(LOINC) 0.4-2.0 mEq/L High alert Lactic Acid 5.2 Performed By: #### LAC #### [place] [address] COMPREHENSIVE PANEL Collected: 03/09/2018 Status: F Source: [facility] 8:55 HEALTH SYSTEM REPOSITORY TYPE CODE TESTS RESULT OUT OF REFERENCE UNITS RANGE LAB NA(LOINC) 136-145 mEq/L Sodium Blood 142 LAB K(LOINC) 3.5-5.1 mEq/L Potassium Blood 4.2 Result Comment: SPECIMEN SLIGHTLY HEMOLYZED LAB CL(LOINC) 98-107 mEq/L Chloride High Blood 111 LAB CO2(LOINC) 21-32 mEq/L CO2 Blood 22 LAB GLU(LOINC) 70-99 mg/dL Glucose High Blood 128 LAB BUN(LOINC) 7-18 mg/dL BUN Blood High 63 LAB CREA(LOINC) 0.67-1.17 mg/dL Creatinine High Blood 1.64 LAB CA(LOINC) 8.5-10.1 mg/dL Calcium Blood 9.4 LAB ALB(LOINC) 3.4-5.0 g/dL Albumin Low Blood 2.2 LAB TP(LOINC) 6.4-8.2 g/dL Total Protein 7.9 LAB AST(LOINC) 9-37 U/L AST-SGOT High Blood 39 Result Comment: SPECIMEN SLIGHTLY HEMOLYZED LAB ALT(LOINC) 12-78 U/L ALT-SGPT Blood 34 LAB ALKP(LOINC) 46-116 U/L Alk High Phosphatase 152 LAB BILIT(LOINC) 0.2-1.0 mg/dL Total Bilirubin 0.8 LAB ANGAP(LOINC) 8-16 Anion Gap 13 Performed By: #### P14 #### [place] [address] PHOSPHORUS BLOOD Collected: 03/09/2018 Status: F Source: [facility] 8[facility] REPOSITORY TYPE CODE TESTS RESULT OUT OF REFERENCE UNITS RANGE LAB PHOS(LOINC 2.5-4.9 mg/dL ) Phosphorus Blood 4.8 Performed By: #### PHOS #### [place] [address] MAGNESIUM BLOOD Collected: 03/09/2018 Status: F Source: [facility] 8:[facility] REPOSITORY TYPE CODE TESTS RESULT OUT OF REFERENCE UNITS RANGE LAB MAG(LOINC) 1.6-2.6 mg/dL Magnesium Blood 2.4 Result Comment: SPECIMEN SLIGHTLY HEMOLYZED Performed By: #### MAG #### [place] [address] TROPONIN I Collected: 03/09/2018 Status: F Source: [facility] 8:55 PM HEALTH SYSTEM REPOSITORY TYPE CODE TESTS RESULT OUT OF REFERENCE UNITS RANGE LAB TROP(LOINC) 0.015-0.045 ng/ml Troponin I 0.020 Performed By: #### TROP #### [facility] [address] [place] [address] Observed: 03/09/2018 Status: F Source: [facility] MRSA SCREEN 8:55 PM HEALTH SYSTEM REPOSITORY Test performed at [facility] No MRSA detected. Performed By: #### MRSA #### [facility] [address] [place] [address] NURSING PROG Observed: 03/09/2018 Status: COMPLETED Source: [place] 8:00 PM CLINIC OTHER CAMPUS REPOSITORY HNO ID: [id number] Author: Indira (Rn) MAGALY Conrad Service: (none) Author Type: Registered Nurse Type: Nursing Progress Note Filed: 03/10/2018 2:23 AM Note Text: Nursing Progress Note Patient Name: Naveen Akins Patient Location: [place] [address]* Daily Note: 2039 Patient was noticed to have low blood pressure (60/43), RN stepped out to the desk to notify residents. 2041 Upon returning to room patient seen to be coughing, heart rate first became bradycardic (30's) then immediately PEA. While searching for a pulse patient became asystolic. 2042 CPR started. 2047 CPR ended, ROSC, see CODE BLUE documentation This note was completed by: Indira Conrad RN Observed: 03/09/2018 Status: C Source: [facility] 8:00 AM HEALTH SYSTEM RESPIRATORY REPOSITORY Test performed at [facility] Few normal oropharyngeal john NOTE CORRECTED REPORT BELOW PREVIOUSLY REPORTED ACINETOBACTER ON 03-13-18 HAS BEEN CORRECTED TO NON-ACID BLOWER SPECIES. Many Gram positive bacilli, diphtheroids Moderate Gram negative bacilli Rare Gram positive cocci Moderate Polymorphonuclear leukocytes Few Squamous epithelial cells ORGANISM: Nonfermenter species (ID: 2) Moderate Strain 1 ORGANISM: Nonfermenter species (ID: 1) Moderate Strain 2 Performed By: #### C_RES #### [facility] [address] [place], [place] [address] NURSING PROG Observed: 02/10/2018 Status: COMPLETED Source: [place] 12:15 AM [facility] REPOSITORY HNO ID: [id number] Author: Kosta TylerRnLisette Kunz RN Service: Nursing Author Type: Registered Nurse Type: Nursing Progress Note Filed: 02/10/2018 12:30 AM Note Text: Nursing Progress Note Patient Name: Naveen Akins Patient Location: [place] [address] [address]* Daily Note: [facility]. Report given to [facility]. This note was completed by: Kosta Kunz RN CNDS Observed: 02/10/2018 Status: COMPLETED Source: [place] 12:15 AM [facility] REPOSITORY HNO ID: [id number] Author: Paulo Lovelace (Cns) Service: Critical Care Author Type: Nurse Specialist Type: Discharge Summaries Filed: 03/12/2018 8:22 AM Note Text: DISCHARGE SUMMARY PATIENT NAME: Naveen Akins ADMISSION DATE: 01/12/2018 DISCHARGE DATE: 02/10/18 ATTENDING PHYSICIAN: No att. providers found Code Status: Not on file Highest Readmission Risk Score: 46 The 30 day readmissions risk score is derived from an internally validated risk model which evaluates patient level characteristics, utilization history, medication orders and lab results up until the day of discharge. Patients with a score of 40 or above are considered highest risk for readmission. Specific patient level drivers will be listed at the bottom of the summary. REASON FOR HOSPITALIZATION: AAA Rupture DIAGNOSIS: Principal Problem: Ruptured abdominal aortic aneurysm (AAA) (HCC) Active Problems: DIC (disseminated intravascular coagulation) (HCC) Acute respiratory failure (HCC) Cardiac arrest (HCC) Anoxic encephalopathy (HCC) AAA (abdominal aortic aneurysm, ruptured) (HCC) Obesity, Class I, BMI 30-34.9 TERENCE (acute kidney injury) (HCC) Ileus (HCC) Acute liver failure without hepatic coma Resolved Problems: Hemorrhagic shock (HCC) Hypernatremia Sepsis present and treated, Sepsis treated (list organism, if known) OPERATIONS DURING HOSPITALIZATION: AAA Repair 01/12/18 and 2 explorarations PROCEDURES DURING HOSPITALIZATION: tracheostomy PEG placement Wound Vac Dialysis catheter HOSPITAL COURSE: Taken to OR for repair of ruptured AAA ?01/12/18. Required wound rexploration /wound closure X 2. Complex postop course. See progress notes for details, Developed acute renal failure necessitating dialysis. At time of discharge responds only to pain stimuli-does not follow commands. Shock has resolved -off vaopressor support. Remains on ventilator. S/P trach and PEG. Transitions of Care Critical Issues: SPECIALIST FOLLOW-UP: Pulmonary Infectious Disease Nephrology LABS AND PROCEDURES PENDING AT DISCHARGE: No pending results. CONSULTING TEAMS DURING HOSPITALIZATION: Gastroenterology: Nephrology ID Critical Care PATIENT CONDITION AT DISCHARGE: stable hemodynamics DISCHARGE DISPOSITION: Alf Acute Care Facility INFORMATION PROVIDED TO PATIENT: NA DIET: Resume pre-hospital diet TPN ACTIVITY: Resume pre-hospital activity Bedrest WOUND/SURGICAL SITE CARE: Wound care team to manage wound vac ALLERGIES No Known Allergies DISCHARGE MEDICATION: Discharge Medication List as of 2018 9:30 AM START taking these medications midodrine (PROAMITINE) 5 mg tablet 3 tablets by PEG route every 8 hours. Med Update, Long-term fentaNYL (SUBLIMAZE) 50 mcg/mL soln Inject 0.5-1 mL intravenously every 2 hours as needed (pain or agitation) for up to 5 days. Earliest Fill Date: 02/09/18 Med Update, R-0 Dx: 1. AAA (abdominal aortic aneurysm, ruptured) (HCC) carboxymethylcellulose sodium (REFRESH LIQUIGEL) 1 % dlgl Use 1-2 Drops in both eyes as needed (Dry Eyes). Med Update ipratropium-albuterol (DUONEB) 0.5 mg-3 mg(2.5 mg base)/3 mL nebu Inhale 3 mL as instructed four times daily. Med Update, Long-term dextrose 40 % gel Take 15 g by mouth as needed. Med Update glucagon (GLUCAGEN) 1 mg/mL injection Inject 1 mg intramuscularly as needed. Med Update, Long-term dextrose 50% in water solution Inject 25 mL intravenously as needed. Med Update Chlorhexidine Gluconate (PERIDEX) 0.12 % solution Take 15 mL by mouth every 12 hours. Med Update heparin 5,000 unit/mL injection Inject 1 mL subcutaneously every 12 hours. Med Update metoclopramide HCl (REGLAN) 5 mg/mL injection Inject 5 mg intravenously every 12 hours. Med Update senna leaf extract 176 mg/5 mL syrp 15 mL by OROGASTRIC route twice daily. Med Update pantoprazole (PROTONIX) 40 mg injection Inject 10 mL intravenously DAILY (6 AM). Med Update, Long-term ciprofloxacin (CIPRO) 400 mg/200 mL pgbk Inject 200 mL intravenously q 24 HR for 5 doses. Med Update, Disp-5 bag, R-0 !! 0.9% NaCl Inject 10 mL intravenously every 12 hours. Med Update !! 0.9% NaCl Inject 20 mL intravenously as needed (FLUSH WITH 20 ML OF 0.9% SODIUM CHLORIDE AFTER EACH BLOOD DRAW.). Med Update !! - Potential duplicate medications found. Please discuss with provider. STOP taking these medications metoprolol succinate(TOPROL XL 50 MG 24 HR TAB) Comments: Reason for Stopping: ASPIRIN 325 MG TAB Comments: Reason for Stopping: triamterene/hydrochlorothiazid(DYAZIDE 37.5 MG-25 MG CAP) Comments: Reason for Stopping: LIPITOR 10 MG TAB Comments: Reason for Stopping: FUTURE APPOINTMENTS: To be determined at discharge from LTAC The patient's risk for 30-day readmission is determined using the following contributing factors: Pt variables contributing to increased readmission risk: 108 Most Recent BUN Result 8.1 First Resulted Calcium During Admission 1 Insurance - Medicare 1 Insurance - Self Pay 1 Active Anticoagulant 1 Barriers to Health Literacy Identified TIME OF CARE: Discharge Management: I personally spent greater than 30 minutes involved in the discharge management of this patient. SIGNATURE: Paulo Lovelace APRN.CNS PAGER/CONTACT #: [phone] DATE: 2018 TIME: 9:31 AM NURSING PROG Observed: 02/09/2018 Status: COMPLETED Source: [place] 8:10 PM CLINIC OTHER CAMPUS REPOSITORY HNO ID: [id number] Author: Ariadna TylerRn) MAGALY Nolan Service: Nursing Author Type: Registered Nurse Type: Nursing Progress Note Filed: 02/09/2018 8:11 PM Note Text: Report to [facility] hospital CASE MANAGEM Observed: 02/09/2018 Status: COMPLETED Source: [place] 7:26 PM CLINIC OTHER CAMPUS REPOSITORY HNO ID: [id number] Author: Dolly TylerRn) MAGALY Santillan Service: Care Management Author Type: Registered Nurse Type: Care Mgt Progress Note Filed: 02/09/2018 7:30 PM Note Text: CARE MANAGEMENT PROGRESS NOTE SERVICE DATE: 02/09/2018 SERVICE TIME: 1924 LOS: 28 days met with spouse Shelly and family regarding [facility]. Spouse agreeable to [facility] but deciding if agree on transfer for today. Spouse aware that if decide against transfer they need to call and appeal the discharge. Family has phone number for [employer]. Transport arranged for 10pm and orders sent via [employer] SIGNATURE: Dolly Santillan RN PATIENT NAME: Naveen Akins DATE: February 09, 2018 TIME: 7:26 PM PAGER/CONTACT #: [phone] GLUCOSE METER Collected: 02/09/2018 Status: F Source: [facility] 5:56 PM HEALTH SYSTEM REPOSITORY TYPE CODE TESTS RESULT OUT OF REFERENCE UNITS RANGE LAB GLUBL(LOINC 70-99 mg/dL ) High Glucose Meter 146 Result Comment: RN NOTIFIED Performed By: #### GLMET #### [place] [address] CASE MANAGEM Observed: 02/09/2018 Status: COMPLETED Source: [place] 3:41 PM CLINIC OTHER [place] REPOSITORY HNO ID: [id number] Author: Lupe TylerRn) MAGALY Cheng Service: Care Management Author Type: Registered Nurse Type: Care Mgt Progress Note Filed: 02/09/2018 3:51 PM Note Text: CARE MANAGEMENT PROGRESS NOTE SERVICE DATE: 02/09/2018 SERVICE TIME: 3:45 PM LOS: 28 days Needs Prior to Discharge: To Be Determined Spoke with patient's spouse Shelly in the waiting area. Plan is for discharge to LTACH today. Patient's spouse states patient's family are wary about patient being discharged today and still undecided on [facility]. Paulo Lovelace APRN.MAINTENANCE TEAM MEMBER notified. Paulo Lovelace APRN.MAINTENANCE TEAM MEMBER states patient to be discharged today. IM letter given to patient's spouse Preeti. recruitment assistant manager Julia Toussaint notified. Will continue to follow for DC planning needs. SIGNATURE: Lupe Cheng RN PATIENT NAME: Naveen Akins DATE: February 09, 2018 TIME: 3:45 PM PAGER/CONTACT #: [phone] PROGRESS Observed: 02/09/2018 Status: COMPLETED Source: [place] 3:23 PM CLINIC OTHER CAMPUS REPOSITORY HNO ID: [id number] Author: Shyam Degroot Service: Pulmonary Disease Author Type: Physician Type: Progress Notes Filed: 02/09/2018 3:25 PM Note Text: MICU - PROGRESS NOTE SERVICE DATE: 02/09/2018 SERVICE TIME: 3:25 PM Admission Date: 01/12/2018 AGE: [age] year old LOS: 28 days Subjective Remains tachypneic. Vent adjusted. Objective PROBLEMS: ACTIVE PROBLEM LIST Gallstone Pancreatitis Ruptured Abdominal Aortic Aneurysm (Aaa) (Hcc) Dic (Disseminated Intravascular Coagulation) (Hcc) Acute Respiratory Failure (Hcc) Cardiac Arrest (Hcc) Hypokalemia Hypomagnesemia Hypophosphatemia Anoxic Encephalopathy (Hcc) Aaa (Abdominal Aortic Aneurysm, Ruptured) (Hcc) Obesity, Class I, Bmi 30-34.9 Terence (Acute Kidney Injury) (Hcc) Ileus (Hcc) Acute Liver Failure Without Hepatic Coma PAST MEDICAL HISTORY Diagnosis Date - DIC (disseminated intravascular coagulation) (HCC) 01/12/2018 PAST SURGICAL HISTORY Procedure Laterality Date - LAP CHOLECYSTECT/CHOLANGIOGRAPHY 05-28-09 - PICC LINE INSERTION (PICC TEAM) (AK) 01/31/2018 - PICC LINE INSERTION (PICC TEAM) (AK) 02/01/2018 - REPAIR UMBILICAL NATAN,5+Y/O,REDUC 05-28-09 Social History Marital status: Spouse name: Shelly Years of education: 11 Number of children: 4 Occupational 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 BP 119/62 Pulse 98 Temp (Src) 97.7 (Temporal Artery) Resp 22 Ht 5' 7.992 (1.73m) Wt 186 lb 15.2 oz (84.8kg) SpO2 100% BMI 28.43 kg/(m2). Temp (24hrs), Av.8 ?C (98.3 ?F), Min:36.5 ?C (97.7 ?F), Max:37.5 ?C (99.5 ?F) NET FLUID BALANCE Intake/Output Summary (Last 24 hours) at 02/09/18 1523 Last data filed at 02/09/18 1400 Gross per 24 hour Intake 1546 ml Output 2055 ml Net -509 ml MEDICATIONS Current Facility-Administered Medications: Parenteral Nutrition - Adult INTRAVENOUS ONCE TPN (1800 START) pantoprazole 40 mg injection (PROTONIX) 40 mg INTRAVENOUS DAILY (6 AM) Parenteral Nutrition - Adult INTRAVENOUS ONCE TPN (1800 START) ciprofloxacin 400 mg in D5W 200 mL (CIPRO) 400 mg INTRAVENOUS q 24 HR midodrine (PROAMITINE) tab(s) 15 mg 15 mg PEG q 8 H carboxymethylcellulose sodium 1-2 Drop (CELLUVISC) 1-2 Drop BOTH EYES TID 0.9% NaCl 10 mL 10 mL INTRAVENOUS q 12 H 0.9% NaCl 20 mL 20 mL INTRAVENOUS PRN ipratropium-albuterol 3 mL nebulizer solution (DUONEB) 3 mL INHALATION QID metoclopramide HCl 5 mg injection (REGLAN) 5 mg INTRAVENOUS q 12 H 0.9% NaCl 10 mL 10 mL INTRAVENOUS q 12 H 0.9% NaCl 20 mL 20 mL INTRAVENOUS PRN magnesium sulfate in water 2 g in sterile water 50 ml 2 g INTRAVENOUS PRN fentaNYL 50 mcg/mL 25-50 mcg injection (SUBLIMAZE) 25-50 mcg INTRAVENOUS q 2 H PRN budesonide 0.5 mg/2 mL 0.5 mg (PULMICORT) 0.5 mg INHALATION BID senna leaf extract 176 mg/5 mL 528 mg 15 mL OROGASTRIC BID carboxymethylcellulose sodium 1-2 Drop (CELLUVISC) 1-2 Drop BOTH EYES PRN polyvinyl alcohol-povidone 1.4-0.6 % 1 Drop (REFRESH) 1 Drop BOTH EYES QID PRN heparin 1,000 unit/mL 4,000 Units injection 4,000 Units INTRAVENOUS 3 Times weekly with dialysis heparin 5,000 Units injection 5,000 Units SUBCUTANEOUS q 12 H dextrose 40 % 15 g 15 g ORAL PRN Or glucagon 1 mg injection (GLUCAGEN) 1 mg INTRAMUSCULAR PRN Or dextrose 50% in water 25 mL syringe 12.5 g INTRAVENOUS PRN Chlorhexidine Gluconate 0.12 % 15 mL (PERIDEX) 15 mL ORAL q 12 H Lines, Drains, and Airways Line Central Line Double Lumen 02/01/18 0815 Peripherally Inserted (PICC) Left Arm 8 days Drain Drain/Tube 01/19/18 1015 Midline Abdomen 21 days GI Feed/Drain 01/27/18 Assessment Gastrostomy 13 days Drain/Tube 02/02/18 0300 Fecal Management System Rectum 7 days Condom Catheter 02/08/18 1800 less than 1 day Airway Airway Tracheostomy 01/27/18 13 days PHYSICAL EXAM PERFORMED: General: Ill Cardiovascular: Regular rhythm Respiratory: Clear to auscultation Abdomen: Soft Extremities: Edema- Yes Neurologic: Comatose Respiratory/Nursing Documentation: O2 Therapy: Ventilator (02/09/181120) Invasive Ventilator Mode: Continuous Mandatory Ventilation (02/09/181120) Set Ventilator Respiratory Rate (BPM): 16 (02/09/181120) Total Respiratory Rate (BPM): 32 (02/09/181120) Tidal Volume Set (mL): 500 (02/09/181120) Exhaled Tidal Volume (mL): 508 (02/09/181120) Minute Volume (L): 16 (02/09/181120) Peak Inspiratory Pressure (cm H2O): 16 (02/09/181120) PEEP/CPAP (cm H2O): 5 (02/09/181120) HEMODYNAMIC DATA: Reviewed NUTRITION: Enteral Feeds: No; TPN DATA: Diagnostic tests reviewed for today's visit, films/specimens were personally reviewed by me: Most recent labs and imaging results. LABS: Recent Labs 02/09/18 0330 WBC 6.69 RBC 2.72* HB 7.9* HCT 24.8* MCV 91.2 PLT 319 GLUC 120* BUN 108* CREAT 3.88* NA 146* K 3.8 CHLOR 116* CO2 19* CA 7.4* MG 2.4 ABG: Invalid input(s): [id number] Assessment/Plan IMPRESSION: Critical Care Documentation: The patient has the following organ/system impairment(s): Respiratory failure (Acute) AAA rupture and multipe re-ops; wound vac LRTI; possible aspiration Autonomic insufficiency TERENCE; was on CRRT Resolving ileus Rx HCAP Hepatic insufficiency Anoxic encephalopathy Anemia-multifactorial MMP CRITICAL CARE PLAN: Guarded outlook Follow Hgb LTAC ultimately See orders This patient has a high probability of sudden, clinically significant deterioration, which requires the highest level of physician preparedness to intervene urgently. I managed/supervised life or organ supporting interventions that required frequent physician assessment. I devoted my full attention to the direct care of this patient for the amount of time indicated below. Time I spent with family or surrogate(s) is included only if the patient was incapable of providing the necessary information or participating in medical decision making. Time devoted to teaching is not included. Discussed with staff/patient/family and Dr. Paniagua Time spent providing critical care services: 30 minutes excluding procedures. SIGNATURE: Shyam Degroot MD PATIENT NAME: Naveen Akins PROGRESS Observed: 02/09/2018 Status: COMPLETED Source: [place] 2:34 PM CLINIC OTHER CAMPUS REPOSITORY HNO ID: [id number] Author: Shen Lorenzo Service: Nephrology Author Type: Physician Type: Progress Notes Filed: 02/09/2018 2:46 PM Note Text: Nephrology Progress Note Following for TERENCE. Pt is on ventilator (trached). Cannot do ROS. Does not follow command. Current Inpatient Medications: Current Facility-Administered Medications Ordered in [facility]: Parenteral Nutrition - Adult INTRAVENOUS ONCE TPN (1800 START) H Edwin Dudley pantoprazole 40 mg injection (PROTONIX) 40 mg INTRAVENOUS DAILY (6 AM) Shyam Degroot 40 mg at 02/09/18 0554 Parenteral Nutrition - Adult INTRAVENOUS ONCE TPN (1800 START) H Edwin Dudley Last Rate: 62.5 mL/hr at 02/08/18 1946 ciprofloxacin 400 mg in D5W 200 mL (CIPRO) 400 mg INTRAVENOUS q 24 HR Dorcas Mcdonnell III Last Rate: 200 mL/hr at 02/08/18 1412 400 mg at 02/08/18 1412 midodrine (PROAMITINE) tab(s) 15 mg 15 mg PEG q 8 H Lora Soliz 15 mg at 02/09/18 0554 carboxymethylcellulose sodium 1-2 Drop (CELLUVISC) 1-2 Drop BOTH EYES TID Lora Soliz 1 Drop at 02/09/18 1432 0.9% NaCl 10 mL 10 mL INTRAVENOUS q 12 H Lora Soliz 10 mL at 02/09/18 0858 0.9% NaCl 20 mL 20 mL INTRAVENOUS PRN Lora Soliz 20 mL at 02/09/18 0858 ipratropium-albuterol 3 mL nebulizer solution (DUONEB) 3 mL INHALATION QID Lora Soliz 3 mL at 02/09/18 1121 metoclopramide HCl 5 mg injection (REGLAN) 5 mg INTRAVENOUS q 12 H Lora Soliz 5 mg at 02/09/18 0900 0.9% NaCl 10 mL 10 mL INTRAVENOUS q 12 H Dionicio (Res) Stevens 10 mL at 02/08/18 2158 0.9% NaCl 20 mL 20 mL INTRAVENOUS PRN Dionicio (Res) Stevens magnesium sulfate in water 2 g in sterile water 50 ml 2 g INTRAVENOUS PRN Maggi (Res) Verg[place]se fentaNYL 50 mcg/mL 25-50 mcg injection (SUBLIMAZE) 25-50 mcg INTRAVENOUS q 2 H PRN Venkat Paniagua 50 mcg at 02/09/18 1105 budesonide 0.5 mg/2 mL 0.5 mg (PULMICORT) 0.5 mg INHALATION BID Dorcas Mike Decoy 0.5 mg at 02/09/18 0812 senna leaf extract 176 mg/5 mL 528 mg 15 mL OROGASTRIC BID Dionicio (Res) Stevens 528 mg at 02/09/18 0901 carboxymethylcellulose sodium 1-2 Drop (CELLUVISC) 1-2 Drop BOTH EYES PRN Venkat Paniagua 2 Drop at 01/26/18 1625 polyvinyl alcohol-povidone 1.4-0.6 % 1 Drop (REFRESH) 1 Drop BOTH EYES QID PRN Paulo (Meter Repair Shop Supervisor) Radu 1 Drop at 01/26/18 1724 heparin 1,000 unit/mL 4,000 Units injection 4,000 Units INTRAVENOUS 3 Times weekly with dialysis Troy Godoy 4,000 Units at 02/03/18 2340 heparin 5,000 Units injection 5,000 Units SUBCUTANEOUS q 12 H Venkat Paniagua 5,000 Units at 02/09/18 0900 dextrose 40 % 15 g 15 g ORAL PRN Jack Regula Or glucagon 1 mg injection (GLUCAGEN) 1 mg INTRAMUSCULAR PRN Jack Regula Or dextrose 50% in water 25 mL syringe 12.5 g INTRAVENOUS PRN Jack Regula Chlorhexidine Gluconate 0.12 % 15 mL (PERIDEX) 15 mL ORAL q 12 H Elder Yu) Kalee 15 mL at 02/09/18 0900 No current [facility]-ordered outpatient prescriptions on file. Vitals: BP 119/62 Pulse 98 Temp 36.5 ?C (97.7 ?F) Resp 22 Ht 172.7 cm (5' 7.99) Wt 84.8 kg (186 lb 15.2 oz) SpO2 100% BMI 28.43 kg/m? BLOOD PRESSURE RANGE: Systolic (24hrs), Av , Min:92 , Max:124 ; Diastolic (24hrs), Av, Min:50, Max:82 24HR INTAKE/OUTPUT: Intake/Output Summary (Last 24 hours) at 02/09/18 1434 Last data filed at 02/09/18 1400 Gross per 24 hour Intake 1546 ml Output 2055 ml Net -509 ml Physical exam: Constitutional: ?NAD Heent: ?Trached.?mmm Cardiovascular: ?S1, S2 normal Respiratory: CTAB Abdomen: ?+bs, soft, nt, nd Ext: 2+?lower extremity edema Data: Labs: Recent Labs 02/09/18 0330 02/08/18 0645 02/07/18 0900 WBC 6.69 7.01 8.47 HB 7.9* 6.8* 6.3* HCT 24.8* 21.4* 19.9* MCV 91.2 91.8 90.5 PLT 319 292 303 Recent Labs 02/09/18 0330 02/08/18 0645 02/07/18 0900 NA 146* 146* 144 K 3.8 4.0 4.1 CO2 19* 18* 20* MG 2.4 -- 2.3 BUN 108* 102* 100* CREAT 3.88* 3.72* 3.65* CA 7.4* 7.2* 7.1* Assessment and Plan 1. Acute kidney injury on chronic kidney disease stage 3. Baseline SCr is 1.36 mg/dL on 11/14/17. CKD is likely due to nephrosclerosis related to PAD. TERENCE is secondary to ischemic ATN from shock.CVVHDF was stopped 01/31. Pt is not oliguric. Last intermittent HD was done on 02/03/18. Adequate urine output over the past 4 days. Some small rise in SCr in the past 24 hrs, but this is not a significant change in GFR overall. Rise is BUN may also be due to TPN/TF (protein load). Will hold off on dialysis again today. Keep I=O. Keep MAP>65. Recheck renal function in am. OK to transfer to LTAC from my standpoint. I will be following the pt there. If dialysis is needed, I can place dialysis catheter and start dialysis there. ? 2. Shock. Resolved.? Initially due to hemorrhagic shock-massive blood loss from ruptured AAA +/- adrenal insufficiency-now off steroid. Currently off NE gtt. On midodrine. ? 3. Ruptured AAA. s/p repair 01/12/18. Management as per vascular surgery. ? 4. Anemia. Likely multifactorial but possible acute blood loss. Continue to monitor Hgb. ? 5. Acute hypoxic respiratory failure. Ventilator dependent. Vent management as per pulmonary/CCM. ? 6. Anoxic encephalopathy . Supportive care. Please do not hesitate to contact me at [phone] if there is any question or concern. Rosanna Talbert MD (Shen Lorenzo) PLAN OF CARE Observed: 02/09/2018 Status: COMPLETED Source: [place] 2:33 PM CLINIC OTHER CAMPUS REPOSITORY O ID: [id number] Author: Dorie Schofield (Pharmacist) Service: Pharmacy Author Type: Pharmacist Type: Plan of Care Filed: 02/09/2018 2:33 PM Note Text: DISCHARGE MEDICATION REVIEW BY PHARMACY Patient Name: Naveen Akins Account #: Data Unavailable Admission Date: 01/12/2018 Date of Contact: February 09, 2018 Time of Contact: 2:33 PM Medication list was reviewed by a Pharmacist for drug interactions or drug related problems:Yes Below is a summary of pharmacist recommendations discussed with LIP: No Recommendations at this time from Discharge Medication List. DORIE SCHOFIELD, PHARMACIST February 09, 2018 2:33 PM Pager: [phone] 02/09/2018 2:33 PM Medication List ASK your doctor about these medications aspirin 325 mg tablet Take one(1) tablet daily. DYAZIDE 37.5- 25 mg per capsule Generic drug: triamterene-hydrochlorothiazide take one half (1/2) tablet daily LIPITOR 10 mg tablet Generic drug: atorvastatin Take one(1) tablet daily. TOPROL XL 50 mg 24 hr tablet Generic drug: metoprolol succinate ER Take one(1) tablet daily. PLAN OF CARE Observed: 02/09/2018 Status: COMPLETED Source: [place] 2:30 PM [facility] REPOSITORY HNO ID: [id number] Author: Gilbert Jeronimo Service: Vascular Surgery Author Type: Resident Type: Plan of Care Filed: 02/09/2018 2:34 PM Note Text: Paged by MICU team, requested me to remove retention sutures in order to discharge patient. Confirmed with Dr Menezes with general surgery that it is OK to remove the retention sutures. Identified 5 retention sutures. Cut the sutures and gently withdrew them. Carefully withdrew the tubing from both sides of each suture. Patient tolerated procedure well. Gilbert Jeronimo MD 02/09/2018 2:34 PM SOCIAL WORK Observed: 02/09/2018 Status: COMPLETED Source: [place] 1:49 PM [facility] REPOSITORY HNO ID: [id number] Author: Destiney Orozco (Sw) Service: Social Work Author Type: Computer Support Specialist Type: Social Work Filed: 02/09/2018 2:05 PM Note Text: SOCIAL WORK PROGRESS NOTE SERVICE DATE: 02/09/2018 SERVICE TIME: 1:49 PM LOS: 28 days Disposition Issue Referred by CM re: assist with family who have been hesitant in cooperating for pt to go to next level of care - . LTAC. Discussed with MAINTENANCE TEAM MEMBER who confirms pt is medically ready for d/c. Met with pt's , Shelly and erinnAriadna. Family expressed concern that pt not leave [facility] until medically ready. Dr. Degroot to talk with family and assure them his medical group follows pts at [facility]. Daughter, Ariadna states she and her sister toured [facility] and a concern is that there is not accommodations for family. (pt's has slept in waiting room since pt admitted). Discussed with family not in pt's best to remain in hospital longer than necessary. [facility] Paramjit cárdenas here and to meet with family. Bed is available at [facility]. There is a recliner can sleep on in pt's room. Time Spent (minutes): 30 SIGNATURE: ANDREA Hill PATIENT NAME: Naveen Akins DATE: February 09, 2018 TIME: 1:49 PM PAGER/CONTACT #: [phone] NUTRITION Observed: 02/09/2018 Status: COMPLETED Source: [place] 11:54 AM [facility] REPOSITORY HNO ID: [id number] Author: Viry Mosher RD Service: NST-Nutrition Support Team Author Type: Registered Dietitian Type: Nutrition Filed: 02/09/2018 2:49 PM Note Text: Attestation signed by Perla Dudley at 02/09/2018 8:52 PM Discussed with the RD and agree with RD's findings and plan as documented in the RD's note. Cont TPN. Perla Dudley MD NUTRITION SUPPORT TEAM TOPIC: NUTRITION SUPPORT TEAM PROGRESS NOTE PATIENT NAME: Naveen Akins DATE OF : 1940 DATE: 02/09/2018 14:28 Addem: Notified that patient is transfering to [facility] today, TPN Orders are On the paper chart, and will send unspiked TPN bag after 6 pm to [facility] with the patient Nutritional Status: MODERATE PROTEIN-CALORIE MALNUTRITION?per RD 02/01/18 ? In the context of Acute Illness or Injury based on: Muscle Loss Moderate Loss Decline in Functional Status: Regressed ? NUTRITION CARE PLAN: ? Problem, Etiology and Signs/Symptoms: Altered GI function related to ileus/gastroparesis?as evidenced by need for TPN, and intolerance to TF, depletion of visceral status ? NST consult 01/16/18 for TPN support Interval History: LOS d 28, tolerating TPN, TF stopped after emesis--> r/o aspiration 02/08, Assessment: 77 year old male with Ruptured AAA s/p Emergent Repair, takeback washout, repair of serosal tears x2, on 01/12, hemorrhagic shock, acute resp failure with pulm edema, TERENCE, SVT s/p Third Look Laparotomy and?washout on 01/14, fourth look, washout, vac change on 01/16 ?remains on vent, continues on CRRT 01/19 ?X lap, wash out, partial fascial closure, wound vac change 01/20 pressors weaned off Remains on diprivan gtt 01/20 rt thoracentesis- breathing better 01/21 limited abdominal x lap and closure 01/22 levo at pm restarted 01/23 neuro consult, ? plans for trach/Peg 01/24 new femoral HD line per nephrology, working good 01/25 + emesis 01/26 started on Zosyn for GNR ( sputum) , TF off 01/27 plans for Peg/Trach 01/30 [facility] to eval, possible dc CRRT per renal?, ongoing ileus 01/31 HD to start 02/01 new PICC placement 02/03 last HD, starting to make urine 02/04 TF started 02/07 emesis, TF stopped 02/08 remains off HD, trach changed 02/09 possible [facility] transfer soon ? Tmax: 38.2 WBC: 6.69 Edema: 3+ UE, LE Lines: ?Quad lumen, HD cath, all WNL Lytes: reviewed PAB: Dropped to 16.9 WT: ?84.8 ?kg ( down from 104 kg) GFR: 15.12 Trig : 266 ? Recommendations: TPN renewed: increased macronutrients , including adding lipid back to TPN, adjusted CL/CO2, decreased insulin ( but remains the same ratio) ? TPN script: 1.5?L /24 hrs providing 2034 ?calories ( 24 kcals/kg ABW 84?kg) and 90 ?gms pro ( ~ 1.00 gms/kg ABW 84?kg) per day ? CHO:insulin ratio is ?8.3 :1?, with 375?gms CHO in TPN , 45 units in TPN bag ? Collaborated with Dr Dudley and orders written. Vitals: Temperature Max in 24 hours: Temp (24hrs), Av.2 ?C (98.9 ?F), Min:36.5 ?C (97.7 ?F), Max:37.8 ?C (100 ?F) Current Vital Signs: BP 123/64 Pulse 102 Temp 36.8 ?C (98.2 ?F) Resp (!) 33 Ht 172.7 cm (5' 7.99) Wt 84.8 kg (186 lb 15.2 oz) SpO2 100% BMI 28.43 kg/m? Current Weight: Weight: 84.8 kg (186 lb 15.2 oz) Intake AND Output: Intake/Output Summary (Last 24 hours) at 02/09/18 1154 Last data filed at 02/09/18 0547 Gross per 24 hour Intake 2047 ml Output 1565 ml Net 482 ml Laboratory Data: Recent Labs 02/09/18 0330 02/08/18 0645 02/07/18 0900 NA 146* 146* 144 K 3.8 4.0 4.1 CHLOR 116* 115* 111* CO2 19* 18* 20* CREAT 3.88* 3.72* 3.65* BUN 108* 102* 100* GLUC 120* 141* 147* P 3.9 -- 5.8* MG 2.4 -- 2.3 CA 7.4* 7.2* 7.1* Recent Labs 02/09/18 0330 PREALB 16.9* Viry Mosher, KRISHAN, LD, [facility] Pager: [phone] Increments: 3 PROGRESS Observed: 02/09/2018 Status: COMPLETED Source: [place] 11:45 AM [facility] OTHER CAMPUS REPOSITORY O ID: [id number] Author: Dorcas Mcdonnell III Service: Infectious Disease Author Type: Physician Type: Progress Notes Filed: 02/09/2018 2:17 PM Note Text: CONSULT PROGRESS NOTE SERVICE DATE: February 09, 2018 11:45am CONSULTING SERVICE: INFECTIOUS DISEASE Subjective INTERVAL HPI: F/u pneumonia with Achromobacter and Enterobacter cloacae Per RN- only acute issue this am is acute anemia. No other issues. Daughter feels he is a little more interactive. Current hospital medications: Parenteral Nutrition - Adult INTRAVENOUS ONCE TPN (1800 START) pantoprazole 40 mg injection (PROTONIX) 40 mg INTRAVENOUS DAILY (6 AM) Parenteral Nutrition - Adult INTRAVENOUS ONCE TPN (1800 START) ciprofloxacin 400 mg in D5W 200 mL (CIPRO) 400 mg INTRAVENOUS q 24 HR midodrine (PROAMITINE) tab(s) 15 mg 15 mg PEG q 8 H carboxymethylcellulose sodium 1-2 Drop (CELLUVISC) 1-2 Drop BOTH EYES TID 0.9% NaCl 10 mL 10 mL INTRAVENOUS q 12 H 0.9% NaCl 20 mL 20 mL INTRAVENOUS PRN ipratropium-albuterol 3 mL nebulizer solution (DUONEB) 3 mL INHALATION QID metoclopramide HCl 5 mg injection (REGLAN) 5 mg INTRAVENOUS q 12 H 0.9% NaCl 10 mL 10 mL INTRAVENOUS q 12 H 0.9% NaCl 20 mL 20 mL INTRAVENOUS PRN magnesium sulfate in water 2 g in sterile water 50 ml 2 g INTRAVENOUS PRN fentaNYL 50 mcg/mL 25-50 mcg injection (SUBLIMAZE) 25-50 mcg INTRAVENOUS q 2 H PRN budesonide 0.5 mg/2 mL 0.5 mg (PULMICORT) 0.5 mg INHALATION BID senna leaf extract 176 mg/5 mL 528 mg 15 mL OROGASTRIC BID carboxymethylcellulose sodium 1-2 Drop (CELLUVISC) 1-2 Drop BOTH EYES PRN polyvinyl alcohol-povidone 1.4-0.6 % 1 Drop (REFRESH) 1 Drop BOTH EYES QID PRN heparin 1,000 unit/mL 4,000 Units injection 4,000 Units INTRAVENOUS 3 Times weekly with dialysis heparin 5,000 Units injection 5,000 Units SUBCUTANEOUS q 12 H dextrose 40 % 15 g 15 g ORAL PRN glucagon 1 mg injection (GLUCAGEN) 1 mg INTRAMUSCULAR PRN dextrose 50% in water 25 mL syringe 12.5 g INTRAVENOUS PRN Chlorhexidine Gluconate 0.12 % 15 mL (PERIDEX) 15 mL ORAL q 12 H Objective PHYSICAL EXAM: Physical Exam Performed: General: NAD ENT: no thrush Heart:RRR without murmur Lungs: Clear to auscultation bilaterally Neck: trach in place. Abdomen: Midline inicision c/d/i. Retention suture sites without redness BP 123/64 Pulse 102 Temp (Src) 97.7 (Temporal Artery) Resp 33 Ht 5' 7.992 (1.73m) Wt 186 lb 15.2 oz (84.8kg) SpO2 100% BMI 28.43 kg/(m2). DATA: Hemoglobin (g/dL) Date Value 11/14/2017 15.0 HGB (g/dL) Date Value 02/09/2018 7.9 Hematocrit (%) Date Value 02/09/2018 24.8 WBC (thou/cmm) Date Value 02/09/2018 6.69 Microbiology: No new microbiology Impression/Recommendations 1) Achromobacter and enterobacter from sputum- treating as tracheitis ? 2) RUptured aortic aneurysm s/p repair ? 3) TERENCE with Estimated Creatinine Clearance: 18.2 mL/min (A) (based on SCr of 3.65 mg/dL (H)). 4) Sepsis- related to #1 likely. Better. Fever curve down. Still moderately tachypneic and mildly tachycardic. ? PLAN; 1) continue ciprofloxacin 400mg daily x 7 days SIGNATURE: Dorcas Mcdonnell III, MD PATIENT NAME: Naveen Akins DATE: February 09, 2018 TIME: 2:17 PM PAGER/CONTACT #: [phone] PROGRESS Observed: 02/09/2018 Status: COMPLETED Source: [place] 11:18 AM [facility] OTHER [facility]AMP[facility] REPOSITORY HNO ID: [id number] Author: Gilbert Jeronimo Service: Vascular Surgery Author Type: Resident Type: Progress Notes Filed: 02/09/2018 11:23 AM Note Text: Attestation signed by Venkat Paniagua at 2018 10:29 AM I saw and evaluated the patient. Discussed with the resident and agree with resident's findings and plan as documented in the resident's note. Extensive discussion is held with the family today about patient's readiness for LTAC. Truly he's been ready for an LTAC for about 5-7 days with no major events. The type of events that he is having with some intermittent fevers issues with tube feedings and other such issues really are not acute issues and there've been no acute issues identified. I discussed this case with the resident advisor on today and he concurs that there is no reason why the patient should not be transferred to the LTAC/[facility]. Patient's family did visit this and they stated may be they wanted to visit another LTAC or 2 but I remind him that one of the things that they're concerned about him leaving here is lack of continuity [facility] care and [facility] to get the same resident advisor the same computer installation engineer the same infectious disease doctors that he has had working with him here. I do discuss his mental status again state that while he seems a little bit more spontaneous in his movements he still has shown no evidence of any type of awareness or following commands or actually any active tracking with his eyes. They seem to think that he has had some episodes of that while they've been in the room and I tell them that's great that we will continue to observe for improvement in his neurologic status while he is at the long- term acute care facility. I do explain to them that this is going to be a very long process if it is successful at all and that he may well require readmissions for issues that need to be dealt with. Currently he is off dialysis and I discuss with this computer installation engineer and they are comfortable in leaving him off dialysis at present. Overall the patient is in a chronic critically ill state that is stable and I foresee a very protracted course if he even were to awaken. Family is made aware of this I tell him that I will be glad to continue communicating with them but that I cannot actively follow him in the LTAC. They seem aware of this and expresses her gratitude for her care he is going to be transferred hopefully tonight or early tomorrow morning. Vascular Surgery Progress Note Vascular AND Thoracic Surgery Service Pager: For questions or concerns Mon-Fri 6a-5p please page [phone]. After 5pm and on Weekends and Holidays, please page [phone] if in ICU or [phone] if on RNF. SERVICE DATE: 02/09/2018 Subjective SUBJECTIVE: No major events reported. Basically unresponsive for my exam, only reaction I was able to elicit was that he blinked when I moved my hand towards his eyes. Diet: DIET TUBE FEED - CONTIN (NO TRAY) Parenteral Nutrition - Adult Objective OBJECTIVE: Vitals: Temp (24hrs), Av.3 ?C (99.1 ?F), Min:36.5 ?C (97.7 ?F), Max:38.2 ?C (100.8 ?F) BP 123/64 Pulse 104 Temp 36.8 ?C (98.2 ?F) Resp 23 Ht 172.7 cm (5' 7.99) Wt 84.8 kg (186 lb 15.2 oz) SpO2 100% BMI 28.43 kg/m? O2 Therapy: Ventilator IANDO: Date 02/08/18699 - 02/09/18 0659 02/09/18699 - 02/10/18 0659 Shift 9336-4395 1677-8315 7504-8539 24 Hour Total 8955-4940 3615-5035 0022-2720 24 Hour Total I N T A K E IV 200 30 70 300 NS 0.9% 30 70 100 Cipro IV 200 200 Blood Products 301 301 PRBC Intake (mL) 300 300 Packed Red Blood Cells Number of Units 1 1 TPN/PPN 678 088 3125 TPN 323 516 1571 Irrigants 30 30 Irrigant/Flush Amount In (GI Feed/Drain 01/27/18 Assessment Gastrostomy) 30 30 Shift Total 501 377 264 3419 O U T P U T Urine 660 945 814 5992 Tube Output ( Condom Catheter 02/08/18 1800) 660 621 317 4507 Drains 0 0 Negative Pressure: Output (mL) (Negative Pressure Wound Therapy 01/12/18 0749 Abdomen) 0 0 Tubes 500 25 525 Drain/Tube Output (Drain/Tube 01/19/18 1015 Midline Abdomen) 25 25 Drain/Tube Output (Drain/Tube 02/02/18 0300 Fecal Management System Rectum) 500 500 # of BMs Stool Incontinence 1 x 1 x Shift Total 660 152 620 9371 Weight (kg) 84.8 84.8 84.8 84.8 84.8 84.8 84.8 84.8 MEDICATIONS Current Facility-Administered Medications: pantoprazole 40 mg injection (PROTONIX) 40 mg INTRAVENOUS DAILY (6 AM) Parenteral Nutrition - Adult INTRAVENOUS ONCE TPN (1800 START) ciprofloxacin 400 mg in D5W 200 mL (CIPRO) 400 mg INTRAVENOUS q 24 HR midodrine (PROAMITINE) tab(s) 15 mg 15 mg PEG q 8 H carboxymethylcellulose sodium 1-2 Drop (CELLUVISC) 1-2 Drop BOTH EYES TID 0.9% NaCl 10 mL 10 mL INTRAVENOUS q 12 H 0.9% NaCl 20 mL 20 mL INTRAVENOUS PRN ipratropium-albuterol 3 mL nebulizer solution (DUONEB) 3 mL INHALATION QID metoclopramide HCl 5 mg injection (REGLAN) 5 mg INTRAVENOUS q 12 H 0.9% NaCl 10 mL 10 mL INTRAVENOUS q 12 H 0.9% NaCl 20 mL 20 mL INTRAVENOUS PRN magnesium sulfate in water 2 g in sterile water 50 ml 2 g INTRAVENOUS PRN fentaNYL 50 mcg/mL 25-50 mcg injection (SUBLIMAZE) 25-50 mcg INTRAVENOUS q 2 H PRN budesonide 0.5 mg/2 mL 0.5 mg (PULMICORT) 0.5 mg INHALATION BID senna leaf extract 176 mg/5 mL 528 mg 15 mL OROGASTRIC BID carboxymethylcellulose sodium 1-2 Drop (CELLUVISC) 1-2 Drop BOTH EYES PRN polyvinyl alcohol-povidone 1.4-0.6 % 1 Drop (REFRESH) 1 Drop BOTH EYES QID PRN heparin 1,000 unit/mL 4,000 Units injection 4,000 Units INTRAVENOUS 3 Times weekly with dialysis heparin 5,000 Units injection 5,000 Units SUBCUTANEOUS q 12 H dextrose 40 % 15 g 15 g ORAL PRN Or glucagon 1 mg injection (GLUCAGEN) 1 mg INTRAMUSCULAR PRN Or dextrose 50% in water 25 mL syringe 12.5 g INTRAVENOUS PRN Chlorhexidine Gluconate 0.12 % 15 mL (PERIDEX) 15 mL ORAL q 12 H Labs: Recent Labs 02/09/18 0330 02/08/18 1045 02/08/18 0645 02/07/18 0900 NA 146* -- 146* 144 K 3.8 -- 4.0 4.1 CHLOR 116* -- 115* 111* CO2 19* -- 18* 20* BUN 108* -- 102* 100* CREAT 3.88* -- 3.72* 3.65* GLUC 120* -- 141* 147* ANION 15 -- 17* 17* CA 7.4* -- 7.2* 7.1* MG 2.4 -- -- 2.3 P 3.9 -- -- 5.8* WBC 6.69 -- 7.01 8.47 HB 7.9* -- 6.8* 6.3* HCT 24.8* -- 21.4* 19.9* PLT 319 -- 292 303 LACT -- 1.4 -- -- Exam: GENERAL: No distress NEURO: unresponsive, blinks eyes HEENT: normocephalic, atraumatic, Trach intact LUNGS: Unlabored breathing O2 Therapy: Ventilator CARDIAC: RRR during my exam ABDOMEN: Soft, mildly distended, does not react to my exam. VAC and retention sutures intact Sanchez clear yellow ASSESSMENT AND PLAN: Active Hospital Problems Diagnosis Date Noted - Ruptured abdominal aortic aneurysm (AAA) ([facility]) 01/12/2018 - TERENCE (acute kidney injury) ([facility]) 01/30/2018 - Ileus ([facility]) 01/30/2018 - Acute liver failure without hepatic coma 01/30/2018 - Obesity, Class I, BMI 30-34.9 01/16/2018 - Anoxic encephalopathy ([facility]) 01/13/2018 - DIC (disseminated intravascular coagulation) ([facility]) 01/12/2018 - Acute respiratory failure ([facility]) 01/12/2018 - Cardiac arrest ([facility]) 01/12/2018 - AAA (abdominal aortic aneurysm, ruptured) ([facility]) 01/12/2018 Overview Note: Added automatically from request for surgery [id number] 77 year old male with Ruptured AAA s/p Emergent Repair, takeback washout, repair of serosal tears x2, on 01/12, hemorrhagic shock, acute resp failure with pulm edema, TERENCE, SVT, s/p Third Look Laparotomy and?washout on 01/14, fourth look, washout, vac change on 01/16, Partial fascial closure on 01/19, Fascial closure/Retention Sutures on 01/21, Trach and PEG on 01/27 ? - Trach Vent mgmt per MICU - NPO/TPN, TFs via PEG restarted 02/04 - no need for transfusion today - Cont W[place] --> wound care following for VAC changes - Reglan - LUE PICC - Code Status: family wants to maintain Full Code status - [facility] following for [facility] placement, awaiting family decision/tour SIGNATURE: Gilbert Jeronimo MD PATIENT NAME: Naveen Akins DATE: February 09, 2018 TIME: 11:23 AM Pager: [phone] FECAL OCCULT BLOOD Collected: 02/09/2018 Status: F Source: [facility] 9:50 AM HEALTH SYSTEM REPOSITORY TYPE CODE TESTS RESULT OUT OF REFERENCE UNITS RANGE LAB OCCU2(LOINC NEGATIVE ) Fecal NEGATIVE Occult Blood Performed By: #### OCCU2 #### [place] [address] CASE MANAGEM Observed: 02/09/2018 Status: COMPLETED Source: [place] 9:42 AM CLINIC OTHER CAMPUS REPOSITORY HNO ID: [id number] Author: Lupe (Rn) MAGALY Cheng Service: Care Management Author Type: Registered Nurse Type: Care Mgt Progress Note Filed: 02/09/2018 9:47 AM Note Text: CARE MANAGEMENT PROGRESS NOTE SERVICE DATE: 02/09/2018 SERVICE TIME: 9:42 AM LOS: 28 days FREEDOM OF CHOICE GIVEN: Financial Disclosure Provided The patient and/or family has been given the Provider List: Yes Chart reviewed. Spoke with patient's spouse Shelly in the waiting area. Shelly states they are leaning towards [facility] but will have their final decision by this afternoon. hydroponics worker Jenna Orozco and Paulo Lovelace APRN.MAINTENANCE TEAM MEMBER updated. Will continue to follow clinical course for further DC planning needs. SIGNATURE: Lupe Cheng RN PATIENT NAME: Naveen Akins DATE: February 09, 2018 TIME: 9:42 AM PAGER/CONTACT #: [phone] IONIZED CALCIUM Collected: 02/09/2018 Status: F Source: [facility] 3:37 AM HEALTH SYSTEM REPOSITORY TYPE CODE TESTS RESULT OUT OF REFERENCE UNITS RANGE LAB CAION(LOINC 4.43-4.93 mg/dL ) Ionized 4.47 Calcium LAB PHCAI(LOINC 7.320-7.420 ) pH 7.349 LAB CAPH(LOINC) 4.36-4.73 mg/dL Ionized 4.36 Ca,PH7.4 Performed By: #### IONCA #### [place] [address] MDRD GFR Collected: 02/09/2018 Status: F Source: [facility] 3:30 AM HEALTH SYSTEM REPOSITORY TYPE CODE TESTS RESULT OUT OF RANGE REFERENCE UNITS LAB GFRFN(LOINC >60mL/min/1.73m ) 2 eGFR 15.12 Result Comment: If the patient is , multiply the result by 1.210. Performed By: #### GFR #### [place] [address] MAGNESIUM BLOOD Collected: 02/09/2018 Status: F Source: [facility] 3:30 AM HEALTH SYSTEM REPOSITORY TYPE CODE TESTS RESULT OUT OF REFERENCE UNITS RANGE LAB MAG(LOINC) 1.6-2.6 mg/dL Magnesium Blood 2.4 Performed By: #### MAG #### [place] [address] PHOSPHORUS BLOOD Collected: 02/09/2018 Status: F Source: [facility] 3:30 AM HEALTH SYSTEM REPOSITORY TYPE CODE TESTS RESULT OUT OF REFERENCE UNITS RANGE LAB PHOS(LOINC 2.5-4.9 mg/dL ) Phosphorus Blood 3.9 Performed By: #### PHOS #### [place] [address] HEMOGRAM/DIFF Collected: 02/09/2018 Status: F Source: [facility] 3:30 AM HEALTH SYSTEM REPOSITORY TYPE CODE TESTS RESULT OUT OF REFERENCE UNITS RANGE LAB WBC(LOINC) 4.23-9.07 thou/cmm WBC 6.69 LAB RBC(LOINC) 4.63-6.08 mil/cmm Low RBC 2.72 LAB HGB(LOINC) 13.7-17.5 g/dL Low Hgb 7.9 LAB HCT(LOINC) 40.1-51.0 % Low Hct 24.8 LAB MCV(LOINC) 83.2-95.6 fl MCV 91.2 LAB MCH(LOINC) 25.7-32.2 pg MCH 29.0 LAB MCHC(LOINC 32.3-36.5 % ) Low MCHC 31.9 LAB RDW(LOINC) 11.6-14.4 % RDW High 17.8 LAB RDWSD(LOIN 36.1-45.8 fl C) RDW SD High 58.6 LAB PLT(LOINC) 141-365 thou/cmm Platelet 319 LAB MPV(LOINC) 8.7-12.0 fl MPV 10.6 LAB SEG(LOINC) % Seg Neutrophil 69.5 LAB IGRE(LOINC % ) Immature Grans 0.90 LAB LYMPH(LOIN % C) Lymphocyte 20.6 LAB MNO(LOINC) % Monocyte 4.6 LAB EOSIN(LOIN % C) Eosinophil 4.3 LAB BASO(LOINC % ) Basophil 0.1 LAB SEGN(LOINC 1.78-5.38 thou/cmm ) Abs. Neut (ANC) 4.65 LAB IGAB(LOINC 0.00-0.05 thou/cmm ) Abs High Immature Grans 0.06 LAB LYMN(LOINC 0.84-2.85 thou/cmm ) Abs. Lymph 1.38 LAB MONON(LOIN 0.30-0.82 thou/cmm C) Abs. Rincon 0.31 LAB EOSN(LOINC 0.04-0.54 thou/cmm ) Abs. Eosin 0.29 LAB BASON(LOIN 0.01-0.08 thou/cmm C) Abs. Baso 0.01 Performed By: #### CBCD1 #### [facility] [address] [place] [address] PREALBUMIN Collected: 02/09/2018 Status: F Source: [facility] 3:30 AM HEALTH SYSTEM REPOSITORY TYPE CODE TESTS RESULT OUT OF REFERENCE UNITS RANGE LAB PAB(LOINC) 20.0-40.0 mg/dL Low Prealbumin 16.9 Performed By: #### PAB #### [facility] [address] [place] [address] BASIC PANEL Collected: 02/09/2018 Status: F Source: [facility] 3:30 AM HEALTH SYSTEM REPOSITORY TYPE CODE TESTS RESULT OUT OF REFERENCE UNITS RANGE LAB NA(LOINC) 136-145 mEq/L Sodium High Blood 146 LAB K(LOINC) 3.5-5.1 mEq/L Potassium Blood 3.8 LAB CL(LOINC) 98-107 mEq/L Chloride High Blood 116 LAB CO2(LOINC) 21-32 mEq/L Low CO2 Blood 19 LAB GLU(LOINC) 70-99 mg/dL Glucose High Blood 120 LAB BUN(LOINC) 7-18 mg/dL BUN High Blood 108 LAB CREA(LOINC 0.67-1.17 mg/dL ) High Creatinine Blood 3.88 LAB CA(LOINC) 8.5-10.1 mg/dL Low Calcium Blood 7.4 LAB ANGAP(LOIN 8-16 C) Anion Gap 15 Performed By: #### P8 #### [facility] [address] [place] [address] PROGRESS Observed: 02/08/2018 Status: COMPLETED Source: [place] 12:21 PM CLINIC OTHER CAMPUS REPOSITORY HNO ID: [id number] Author: Dorcas Mcdonnell III Service: Infectious Disease Author Type: Physician Type: Progress Notes Filed: 02/08/2018 12:33 PM Note Text: CONSULT PROGRESS NOTE SERVICE DATE: 02/08/2018 SERVICE TIME: 12:21 PM CONSULTING SERVICE: INFECTIOUS DISEASE Subjective INTERVAL HPI: F/u pneumonia with Achromobacter and Enterobacter cloacae Patient not responsive. Nurse concerned as patient had low grade fever just recently. Still with sputum production with moderate, lorenzo secretions. Still with diarrhea via FMS. Good urine output. Receiving blood transfusion at present. Current hospital medications: [START ON 02/09/2018] pantoprazole 40 mg injection (PROTONIX) 40 mg INTRAVENOUS DAILY (6 AM) Parenteral Nutrition - Adult INTRAVENOUS ONCE TPN (1800 START) Parenteral Nutrition - Adult INTRAVENOUS ONCE TPN (1800 START) ciprofloxacin 400 mg in D5W 200 mL (CIPRO) 400 mg INTRAVENOUS q 24 HR midodrine (PROAMITINE) tab(s) 15 mg 15 mg PEG q 8 H carboxymethylcellulose sodium 1-2 Drop (CELLUVISC) 1-2 Drop BOTH EYES TID 0.9% NaCl 10 mL 10 mL INTRAVENOUS q 12 H 0.9% NaCl 20 mL 20 mL INTRAVENOUS PRN ipratropium-albuterol 3 mL nebulizer solution (DUONEB) 3 mL INHALATION QID metoclopramide HCl 5 mg injection (REGLAN) 5 mg INTRAVENOUS q 12 H 0.9% NaCl 10 mL 10 mL INTRAVENOUS q 12 H 0.9% NaCl 20 mL 20 mL INTRAVENOUS PRN magnesium sulfate in water 2 g in sterile water 50 ml 2 g INTRAVENOUS PRN fentaNYL 50 mcg/mL 25-50 mcg injection (SUBLIMAZE) 25-50 mcg INTRAVENOUS q 2 H PRN budesonide 0.5 mg/2 mL 0.5 mg (PULMICORT) 0.5 mg INHALATION BID senna leaf extract 176 mg/5 mL 528 mg 15 mL OROGASTRIC BID carboxymethylcellulose sodium 1-2 Drop (CELLUVISC) 1-2 Drop BOTH EYES PRN polyvinyl alcohol-povidone 1.4-0.6 % 1 Drop (REFRESH) 1 Drop BOTH EYES QID PRN heparin 1,000 unit/mL 4,000 Units injection 4,000 Units INTRAVENOUS 3 Times weekly with dialysis heparin 5,000 Units injection 5,000 Units SUBCUTANEOUS q 12 H dextrose 40 % 15 g 15 g ORAL PRN glucagon 1 mg injection (GLUCAGEN) 1 mg INTRAMUSCULAR PRN dextrose 50% in water 25 mL syringe 12.5 g INTRAVENOUS PRN Chlorhexidine Gluconate 0.12 % 15 mL (PERIDEX) 15 mL ORAL q 12 H Objective PHYSICAL EXAM: Physical Exam Performed: General: NAD ENT: no thrush Heart:RRR without murmur Lungs: Diffuse inspiratory and expiratory wheezes. Neck: trach in place. Abdomen: Midline inicision c/d/i. Retention suture sites without redness BP 114/66 Pulse 112 Temp (Src) 100 (Temporal Artery) Resp 24 Ht 5' 7.992 (1.73m) Wt 186 lb 15.2 oz (84.8kg) SpO2 99% BMI 28.43 kg/(m2). DATA: Component Latest Ref Rng AND Units 02/07/2018 02/08/2018 WBC 4.23 - 9.07 thou/cmm 8.47 7.01 RBC 4.63 - 6.08 mil/cmm 2.20 (L) 2.33 (L) HGB 13.7 - 17.5 g/dL 6.3 (LL) 6.8 (LL) Hematocrit 40.1 - 51.0 % 19.9 (LL) 21.4 (L) MCV 83.2 - 95.6 fl 90.5 91.8 MCH 25.7 - 32.2 pg 28.6 29.2 MCHC 32.3 - 36.5 % 31.7 (L) 31.8 (L) RDW 11.6 - 14.4 % 18.4 (H) 18.4 (H) RDW-SD 36.1 - 45.8 fl 59.7 (H) 60.6 (H) Platelet Count 141 - 365 thou/cmm 303 292 MPV 8.7 - 12.0 fl 11.0 11.1 Seg Neutrophil % 77.4 75.3 Immature Grans % 0.80 1.00 Lymphocyte % 15.6 15.4 Monocyte % 3.4 3.9 Eosinophil % 2.7 4.3 Basophil % 0.1 0.1 Abs. Neut(Anc) 1.78 - 5.38 thou/cmm 6.56 (H) 5.28 Immature Grans # 0.00 - 0.05 thou/cmm 0.07 (H) 0.07 (H) Abs. Lymph 0.84 - 2.85 thou/cmm 1.32 1.08 Abs. Rincon 0.30 - 0.82 thou/cmm 0.29 (L) 0.27 (L) Abs. Eosin 0.04 - 0.54 thou/cmm 0.23 0.30 Abs. Baso 0.01 - 0.08 thou/cmm 0.01 0.01 Sodium 136 - 145 mEq/L 146 (H) Potassium 3.5 - 5.1 mEq/L 4.0 Chloride 98 - 107 mEq/L 115 (H) CO2 21 - 32 mEq/L 18 (L) Glucose 70 - 99 mg/dL 141 (H) BUN 7 - 18 mg/dL 102 (H) Creatinine 0.67 - 1.17 mg/dL 3.72 (H) Calcium 8.5 - 10.1 mg/dL 7.2 (L) Anion Gap 8 - 16 17 (H) Temp 37.0 pH, Venous 7.320 - 7.420 7.365 pCO2, Venous 38.0 - 49.0 mm Hg 31.8 (L) pO2, Venous 35.0 - 45.0 mm Hg 51.7 (H) HCO3 BG 22.0 - 26.0 mEq/L 17.7 (L) Base Excess -2.5 to 2.5 mEq/L -6.9 O2% SAT VENOUS 70.0 - 80.0 % 85.4 (H) Ionized Calcium 4.43 - 4.93 mg/dL 4.28 (L) pH, CA 7.320 - 7.420 7.353 Ionized CA, PH7.4 4.36 - 4.73 mg/dL 4.18 (L) Lactic Acid 0.4 - 2.0 mEq/L 1.4 Microbiology: No new microbiology Impression/Recommendations 1) Achromobacter and enterobacter from sputum- would treat as a tracheitis/lower respiratory tract infection given tachypnea, wheezing on exam. ? 2) RUptured aortic aneurysm s/p repair ? 3) TERENCE with Estimated Creatinine Clearance: 18.2 mL/min (A) (based on SCr of 3.65 mg/dL (H)). 4) Sepsis- related to #1 likely. Febrile and tachycardic. ? PLAN; 1) Agree with ciprofloxacin 400mg daily x 7 days 2) If fevers persist while on cipro then will check blood and urine cultures SIGNATURE: Dorcas Mcdonnell III, MD PATIENT NAME: Naveen Akins DATE: February 08, 2018 TIME: 12:21 PM PAGER: [phone] ABDOMEN 1 VIEW Observed: 02/08/2018 Status: F Source: [facility] 11:39 AM HEALTH SYSTEM REPOSITORY Performed at [facility] APPROVED BY: Matt Geiger MD EXAM TITLE: ABDOMEN 1 VIEW DATE: 02/08/2018 09:30 INDICATION: Nausea and vomiting. Gastrostomy tube. COMPARISON: 02/01/2018. Supine view the abdomen and pelvis shows gastrostomy tube overlying the left upper quadrant with balloon tipped overlying the mid stomach. Mild gaseous distention of the stomach. Gaseous distention of the transverse colon. No pathologically dilated loops of large or small bowel. Multiple surgical clips are seen overlying the abdomen slightly to the left of the lumbar spine. IMPRESSION: No pathologically dilated loops of bowel. Gaseous distention of the stomach and transverse colon as described. CHEST 1 VIEW Observed: 02/08/2018 Status: F Source: [facility] 11:31 AM HEALTH SYSTEM REPOSITORY Performed at [facility] APPROVED BY: Matt Geiger MD EXAM TITLE: CHEST 1 VIEW DATE: 02/08/2018 09:45 INDICATION: Nausea and vomiting. Tracheostomy. COMPARISON: 02/06/2018 at 04 53. Portable frontal view of the chest shows tracheostomy tube with tip at the level of T3. Overlying manager of corporate communications leads. Left-sided PICC line with tip near the cavoatrial junction. Heart size is normal. Thoracic aorta is tortuous. Lungs are clear. No infiltrates or effusions. Intramedullary jerry within the left proximal humerus. Gastrostomy tube in the left upper quadrant. IMPRESSION: No acute findings radiographically. PROGRESS Observed: 02/08/2018 Status: COMPLETED Source: [place] 11:26 AM CLINIC OTHER CAMPUS REPOSITORY HNO ID: [id number] Author: Shen Lorenzo Service: Nephrology Author Type: Physician Type: Progress Notes Filed: 02/08/2018 11:34 AM Note Text: Nephrology Progress Note Following for TERENCE. Pt is on ventilator (trached). Cannot do ROS. Does not follow command. Current Inpatient Medications: Current Facility-Administered Medications Ordered in [facility]: [START ON 02/09/2018] pantoprazole 40 mg injection (PROTONIX) 40 mg INTRAVENOUS DAILY (6 AM) Shyam Degroot Parenteral Nutrition - Adult INTRAVENOUS ONCE TPN (1800 START) H Edwin Dudley Parenteral Nutrition - Adult INTRAVENOUS ONCE TPN (1800 START) H Edwin Dudley Last Rate: 62.5 mL/hr at 02/07/18 1800 ciprofloxacin 400 mg in D5W 200 mL (CIPRO) 400 mg INTRAVENOUS q 24 HR Dorcas Cifuentesford III Last Rate: 200 mL/hr at 02/07/18 1515 400 mg at 02/07/18 1515 midodrine (PROAMITINE) tab(s) 15 mg 15 mg PEG q 8 H Lora Soliz 15 mg at 02/08/18 0550 carboxymethylcellulose sodium 1-2 Drop (CELLUVISC) 1-2 Drop BOTH EYES TID Lora Soliz 1 Drop at 02/08/18 0917 0.9% NaCl 10 mL 10 mL INTRAVENOUS q 12 H Lora Soliz 10 mL at 02/08/18 0914 0.9% NaCl 20 mL 20 mL INTRAVENOUS PRN Lora Soliz ipratropium-albuterol 3 mL nebulizer solution (DUONEB) 3 mL INHALATION QID Lora Soliz 3 mL at 02/08/18 1119 metoclopramide HCl 5 mg injection (REGLAN) 5 mg INTRAVENOUS q 12 H Lora Soliz 5 mg at 02/08/18 0917 0.9% NaCl 10 mL 10 mL INTRAVENOUS q 12 H Dionicio (Res) Stevens 10 mL at 02/08/18 0916 0.9% NaCl 20 mL 20 mL INTRAVENOUS PRN Dionicio (Res) Stevens magnesium sulfate in water 2 g in sterile water 50 ml 2 g INTRAVENOUS PRN Maggi (Res) Verghese fentaNYL 50 mcg/mL 25-50 mcg injection (SUBLIMAZE) 25-50 mcg INTRAVENOUS q 2 H PRN Venkat Paniagua 25 mcg at 02/08/18 0911 budesonide 0.5 mg/2 mL 0.5 mg (PULMICORT) 0.5 mg INHALATION BID Dorcas Mike Decoy 0.5 mg at 02/08/18 0732 senna leaf extract 176 mg/5 mL 528 mg 15 mL OROGASTRIC BID Dionicio (Res) Stevens 528 mg at 02/07/18 2221 carboxymethylcellulose sodium 1-2 Drop (CELLUVISC) 1-2 Drop BOTH EYES PRN Venkat Paniagua 2 Drop at 01/26/18 1625 polyvinyl alcohol-povidone 1.4-0.6 % 1 Drop (REFRESH) 1 Drop BOTH EYES QID PRN Paulo (M[employer] Repair Shop Supervisor) [place] 1 Drop at 01/26/18 1724 heparin 1,000 unit/mL 4,000 Units injection 4,000 Units INTRAVENOUS 3 Times weekly with dialysis Troy Godoy 4,000 Units at 02/03/18 2340 heparin 5,000 Units injection 5,000 Units SUBCUTANEOUS q 12 H Venkat Paniagua 5,000 Units at 02/08/18 0916 dextrose 40 % 15 g 15 g ORAL PRN Jack Regula Or glucagon 1 mg injection (GLUCAGEN) 1 mg INTRAMUSCULAR PRN Jack Regula Or dextrose 50% in water 25 mL syringe 12.5 g INTRAVENOUS PRN Jack Regula Chlorhexidine Gluconate 0.12 % 15 mL (PERIDEX) 15 mL ORAL q 12 H Elder Yu) Kalee 15 mL at 02/08/18 0916 No current [facility]-ordered outpatient prescriptions on file. Vitals: BP 107/62 Pulse 103 Temp 37.1 ?C (98.8 ?F) Resp 26 Ht 172.7 cm (5' 7.99) Wt 84.8 kg (186 lb 15.2 oz) SpO2 100% BMI 28.43 kg/m? BLOOD PRESSURE RANGE: Systolic (24hrs), Av , Min:85 , Max:134 ; Diastolic (24hrs), Av, Min:47, Max:68 24HR INTAKE/OUTPUT: Intake/Output Summary (Last 24 hours) at 02/08/18 1126 Last data filed at 02/08/18 0900 Gross per 24 hour Intake 2620 ml Output 2105 ml Net 515 ml Physical exam: Constitutional: NAD Heent: Trached. mmm Cardiovascular: S1, S2 normal Respiratory: CTAB Abdomen: +bs, soft, nt, nd Ext: 2+ lower extremity edema Data: Labs: Recent Labs 02/08/18 0645 02/07/18 0900 02/07/18 0620 WBC 7.01 8.47 see below HB 6.8* 6.3* see below HCT 21.4* 19.9* see below MCV 91.8 90.5 see below PLT 292 303 see below Recent Labs 02/08/18 0645 02/07/18 0900 02/06/18 0556 NA 146* 144 141 K 4.0 4.1 4.2 CO2 18* 20* 21 MG -- 2.3 2.1 BUN 102* 100* 83* CREAT 3.72* 3.65* 3.44* CA 7.2* 7.1* 6.8* Assessment and Plan 1. Acute kidney injury on chronic kidney disease stage 3. Baseline SCr is 1.36 mg/dL on 11/14/17. CKD is likely due to nephrosclerosis related to PAD. TERENCE is secondary to ischemic ATN from shock.CVVHDF was stopped 01/31. Pt is not oliguric. Last intermittent HD was done on 02/03/18. Adequate urine output over the past 3 days. Some small rise in SCr in the past 3 days, but this is not a significant change in GFR. Rise is BUN may also be due to possible UGIB and TPN/TF (protein load). Will hold off on dialysis again today. Keep I=O. Keep MAP>65. Recheck renal function in am. ? 2. Shock. Resolved.? Initially due to hemorrhagic shock-massive blood loss from ruptured AAA +/- adrenal insufficiency-now off steroid. Currently off NE gtt. On midodrine. ? 3. Ruptured AAA. s/p repair 01/12/18. Management as per vascular surgery. 4. Anemia. Likely multifactorial but possible acute blood loss. Has required PRBC the past 2 days. Work up for cause of anemia as per CCM. ? 5. Acute hypoxic respiratory failure. Ventilator dependent. Vent management as per pulmonary/CCM. ? 6. Encephalopathy anoxic. Supportive care. Please do not hesitate to contact me at [phone] if there is any question or concern. Rosanna Talbert MD (Shen Lorenzo) NURSING PROG Observed: 02/08/2018 Status: COMPLETED Source: [place] 11:21 AM [facility] OTHER CAMPUS REPOSITORY O ID: [id number] Author: Janell (Rn) MAGALY Fabian Service: Nursing Author Type: Registered Nurse Type: Nursing Progress Note Filed: 02/08/2018 11:25 AM Note Text: Nursing Progress Note Patient Name: Naveen Akins Patient Location: [place] [address] [address]* Daily Note:09: Notified Demi Cee with [facility] that when patient was turned on side to be cleaned, patient had a small amount of probable yellow emesis on side of mouth, left tube feeds off per Demi. Abdominal scan and CXR ordered. Also made aware that patient became tachycardic and tachypnic. Sputum suctioned remains moderate amount of white and thick. This note was completed by: Janell Fabian RN PROGRESS Observed: 02/08/2018 Status: COMPLETED Source: [place] 11:04 AM [facility] OTHER CAMPUS REPOSITORY O ID: [id number] Author: Gilbert Jeronimo Service: Vascular Surgery Author Type: Resident Type: Progress Notes Filed: 02/08/2018 11:09 AM Note Text: Attestation signed by Venkat Paniagua at 02/08/2018 6:36 PM No change in neurologic status. Still not requiring dialysis. With these facts in place the only thing that we are seeing is a drift down and hemoglobin the may be due to some minor GI bleeding that he does not appear to be actively bleeding anywhere. Tracheostomy changed overnight. No evidence of any new issues that need to be addressed acutely. Still planning for transfer to long-term acute care facility once patient's family has decided upon facility. Vascular Surgery Progress Note Vascular AND Thoracic Surgery Service Pager: For questions or concerns Mon-Fri 6a-5p please page [phone]. After 5pm and on Weekends and Holidays, please page [phone] if in ICU or [phone] if on RNF. SERVICE DATE: 02/08/2018 Subjective SUBJECTIVE: Hb 6.8 on recheck this AM, giving another unit today. No events reported by nursing staff. No reaction to my exam. Had his trach changed yesterday without complication. Diet: Parenteral Nutrition - Adult DIET TUBE FEED - CONTIN (NO TRAY) Parenteral Nutrition - Adult Objective OBJECTIVE: Vitals: Temp (24hrs), Av.9 ?C (98.5 ?F), Min:36.7 ?C (98.1 ?F), Max:37.4 ?C (99.3 ?F) BP 110/62 Pulse 111 Temp 37.1 ?C (98.8 ?F) Resp 26 Ht 172.7 cm (5' 7.99) Wt 84.8 kg (186 lb 15.2 oz) SpO2 99% BMI 28.43 kg/m? O2 Therapy: Ventilator IANDO: Date 02/07/18699 - 02/08/1865802/08/18699 - 02/09/18 0659 Shift 9778-3802 4762-6851 6017-6993 24 Hour Total 3113-3576 1234-9729 6482-4502 24 Hour Total I N T A K E IV 200 200 Cipro IV 200 200 TPN/PPN 458 343 6150 TPN 795 527 8969 Irrigants 120 180 300 Irrigant/Flush Amount In (GI Feed/Drain 01/27/18 Assessment Gastrostomy) 120 180 300 Gastric Tube 280 345 625 Tube Feed Intake (I/O) (GI Feed/Drain 01/27/18 Assessment Gastrostomy) 280 345 625 Shift Total 1350 1270 2620 O U T P U T Urine 500 043 317 1633 280 280 Tube Output ( Condom Catheter 02/02/18 2200) 500 201 655 0228 280 280 Tubes 350 400 750 Drain/Tube Output (Drain/Tube 01/19/18 1015 Midline Abdomen) 0 0 0 Drain/Tube Output (Drain/Tube 02/02/18 0300 Fecal Management System Rectum) 350 400 750 Shift Total 850 015 851 5147 280 280 Weight (kg) 87.5 87.5 87.5 87.5 84.8 84.8 84.8 84.8 MEDICATIONS Current Facility-Administered Medications: Parenteral Nutrition - Adult INTRAVENOUS ONCE TPN (1800 START) ciprofloxacin 400 mg in D5W 200 mL (CIPRO) 400 mg INTRAVENOUS q 24 HR midodrine (PROAMITINE) tab(s) 15 mg 15 mg PEG q 8 H carboxymethylcellulose sodium 1-2 Drop (CELLUVISC) 1-2 Drop BOTH EYES TID 0.9% NaCl 10 mL 10 mL INTRAVENOUS q 12 H 0.9% NaCl 20 mL 20 mL INTRAVENOUS PRN ipratropium-albuterol 3 mL nebulizer solution (DUONEB) 3 mL INHALATION QID metoclopramide HCl 5 mg injection (REGLAN) 5 mg INTRAVENOUS q 12 H 0.9% NaCl 10 mL 10 mL INTRAVENOUS q 12 H 0.9% NaCl 20 mL 20 mL INTRAVENOUS PRN magnesium sulfate in water 2 g in sterile water 50 ml 2 g INTRAVENOUS PRN fentaNYL 50 mcg/mL 25-50 mcg injection (SUBLIMAZE) 25-50 mcg INTRAVENOUS q 2 H PRN budesonide 0.5 mg/2 mL 0.5 mg (PULMICORT) 0.5 mg INHALATION BID senna leaf extract 176 mg/5 mL 528 mg 15 mL OROGASTRIC BID carboxymethylcellulose sodium 1-2 Drop (CELLUVISC) 1-2 Drop BOTH EYES PRN polyvinyl alcohol-povidone 1.4-0.6 % 1 Drop (REFRESH) 1 Drop BOTH EYES QID PRN heparin 1,000 unit/mL 4,000 Units injection 4,000 Units INTRAVENOUS 3 Times weekly with dialysis heparin 5,000 Units injection 5,000 Units SUBCUTANEOUS q 12 H dextrose 40 % 15 g 15 g ORAL PRN Or glucagon 1 mg injection (GLUCAGEN) 1 mg INTRAMUSCULAR PRN Or dextrose 50% in water 25 mL syringe 12.5 g INTRAVENOUS PRN Chlorhexidine Gluconate 0.12 % 15 mL (PERIDEX) 15 mL ORAL q 12 H Labs: Recent Labs 02/08/18 0645 02/07/18 0900 02/06/18 0556 NA 146* 144 -- 141 K 4.0 4.1 -- 4.2 CHLOR 115* 111* -- 109* CO2 18* 20* -- 21 BUN 102* 100* -- 83* CREAT 3.72* 3.65* -- 3.44* GLUC 141* 147* -- 155* ANION 17* 17* -- 15 CA 7.2* 7.1* -- 6.8* MG -- 2.3 -- 2.1 P -- 5.8* -- 6.1* ALB -- -- -- 1.1* AST -- -- -- 104* ALT -- -- -- 92* ALKPHOS -- -- -- 333* TBILI -- -- -- 2.9* WBC 7.01 8.47 < > 9.62* HB 6.8* 6.3* < > 6.7* HCT 21.4* 19.9* < > 21.5* PLT 292 303 < > 286 < > = values in this interval not displayed. Exam: GENERAL: No distress NEURO: unresponsive HEENT: normocephalic, atraumatic, Trach intact LUNGS: Unlabored breathing O2 Therapy: Ventilator CARDIAC: mildly tachycardic ABDOMEN: Soft, mildly distended, does not react to my exam. VAC and retention sutures intact ASSESSMENT AND PLAN: Active Hospital Problems Diagnosis Date Noted - Ruptured abdominal aortic aneurysm (AAA) ([facility]) 01/12/2018 - TERENCE (acute kidney injury) ([facility]) 01/30/2018 - Ileus ([facility]) 01/30/2018 - Acute liver failure without hepatic coma 01/30/2018 - Obesity, Class I, BMI 30-34.9 01/16/2018 - Anoxic encephalopathy ([facility]) 01/13/2018 - DIC (disseminated intravascular coagulation) ([facility]) 01/12/2018 - Acute respiratory failure ([facility]) 01/12/2018 - Cardiac arrest ([facility]) 01/12/2018 - AAA (abdominal aortic aneurysm, ruptured) ([facility]) 01/12/2018 Overview Note: Added automatically from request for surgery [id number] 77 year old male with Ruptured AAA s/p Emergent Repair, takeback washout, repair of serosal tears x2, on 01/12, hemorrhagic shock, acute resp failure with pulm edema, TERENCE, SVT, s/p Third Look Laparotomy and?washout on 01/14, fourth look, washout, vac change on 01/16, Partial fascial closure on 01/19, Fascial closure/Retention Sutures on 01/21, Trach and PEG on 01/27 ? - Trach Vent mgmt per MICU - NPO/TPN, TFs via PEG restarted 02/04, up to 30cc/hr now, NST considering stopping TPN - transfusing 1u today 02/08 - Cont [place] --> wound care following for VAC changes - trend wbc - Reglan - LUE PICC - Code Status: family wants to maintain Full Code status - Select following for LTAC placement, likely dc next week after family makes decision SIGNATURE: Gilbert Jeronimo MD PATIENT NAME: Naveen Akins DATE: February 08, 2018 TIME: 11:09 AM Pager: [phone] VENOUS BLOOD GAS Collected: 02/08/2018 Status: F Source: [facility] 10:45 AM HEALTH SYSTEM REPOSITORY TYPE CODE TESTS RESULT OUT OF REFERENCE UNITS RANGE LAB TEMPC(LOIN C) Temperature 37.0 LAB PHV(LOINC) 7.320-7.420 pH Venous 7.365 LAB PCO2I(LOIN 38.0-49.0 mm Hg C) Low PCO2 Venous 31.8 LAB PO2VI(LOIN 35.0-45.0 mm Hg C) PO2 Venous High 51.7 LAB HCO3C(LOIN 22.0-26.0 mEq/L C) Low HCO3- 17.7 LAB BASE(LOINC -2.5 to 2.5 mEq/L ) Base Excess -6.9 LAB O2%V(LOINC 70.0-80.0 % ) O2% Sat High Venous 85.4 Performed By: #### VBG #### [facility] [address] [place] [address] LACTIC ACID Collected: 02/08/2018 Status: F Source: [facility] 10:45 AM HEALTH SYSTEM REPOSITORY TYPE CODE TESTS RESULT OUT OF REFERENCE UNITS RANGE LAB LAC(LOINC) 0.4-2.0 mEq/L Lactic Acid 1.4 Performed By: #### LAC #### [facility] [address] [place] [address] PROGRESS Observed: 02/08/2018 Status: COMPLETED Source: [place] 9:53 AM CLINIC OTHER CAMPUS REPOSITORY O ID: [id number] Author: Shyam Degroot Service: Pulmonary Disease Author Type: Physician Type: Progress Notes Filed: 02/08/2018 10:00 AM Note Text: MICU - PROGRESS NOTE SERVICE DATE: 02/08/2018 SERVICE TIME: 9:50 AM Admission Date: 01/12/2018 AGE: [age] year old LOS: 27 days Subjective Unresponsive. Vomited. Possible aspiration. Objective PROBLEMS: ACTIVE PROBLEM LIST Gallstone Pancreatitis Ruptured Abdominal Aortic Aneurysm (Aaa) (Hcc) Dic (Disseminated Intravascular Coagulation) (Hcc) Acute Respiratory Failure (Hcc) Cardiac Arrest (Hcc) Hypokalemia Hypomagnesemia Hypophosphatemia Anoxic Encephalopathy (Hcc) Aaa (Abdominal Aortic Aneurysm, Ruptured) (Hcc) Obesity, Class I, Bmi 30-34.9 Terence (Acute Kidney Injury) (Hcc) Ileus (Hcc) Acute Liver Failure Without Hepatic Coma PAST MEDICAL HISTORY Diagnosis Date - DIC (disseminated intravascular coagulation) (HCC) 01/12/2018 PAST SURGICAL HISTORY Procedure Laterality Date - LAP CHOLECYSTECT/CHOLANGIOGRAPHY 05-28-09 - PICC LINE INSERTION (PICC TEAM) ([place]) 01/31/2018 - PICC LINE INSERTION (PICC TEAM) (AK) 02/01/2018 - REPAIR UMBILICAL NATAN,5+Y/O,REDUC 05-28-09 Social History Marital status: Spouse name: Shelly Years of education: 11 Number of children: 4 Occupational 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 BP 130/61 Pulse 123 Temp (Src) 98.8 (Temporal Artery) Resp 48 Ht 5' 7.992 (1.73m) Wt 186 lb 15.2 oz (84.8kg) SpO2 100% BMI 28.43 kg/(m2). Temp (24hrs), Av.8 ?C (98.2 ?F), Min:35.9 ?C (96.6 ?F), Max:37.4 ?C (99.3 ?F) NET FLUID BALANCE Intake/Output Summary (Last 24 hours) at 02/08/18 0953 Last data filed at 02/08/18 0900 Gross per 24 hour Intake 2620 ml Output 2105 ml Net 515 ml MEDICATIONS Current Facility-Administered Medications: Parenteral Nutrition - Adult INTRAVENOUS ONCE TPN (1800 START) ciprofloxacin 400 mg in D5W 200 mL (CIPRO) 400 mg INTRAVENOUS q 24 HR famotidine 20 mg tab(s) (PEPCID) 20 mg ORAL/FEEDING TUBE DAILY midodrine (PROAMITINE) tab(s) 15 mg 15 mg PEG q 8 H carboxymethylcellulose sodium 1-2 Drop (CELLUVISC) 1-2 Drop BOTH EYES TID 0.9% NaCl 10 mL 10 mL INTRAVENOUS q 12 H 0.9% NaCl 20 mL 20 mL INTRAVENOUS PRN ipratropium-albuterol 3 mL nebulizer solution (DUONEB) 3 mL INHALATION QID metoclopramide HCl 5 mg injection (REGLAN) 5 mg INTRAVENOUS q 12 H 0.9% NaCl 10 mL 10 mL INTRAVENOUS q 12 H 0.9% NaCl 20 mL 20 mL INTRAVENOUS PRN magnesium sulfate in water 2 g in sterile water 50 ml 2 g INTRAVENOUS PRN fentaNYL 50 mcg/mL 25-50 mcg injection (SUBLIMAZE) 25-50 mcg INTRAVENOUS q 2 H PRN budesonide 0.5 mg/2 mL 0.5 mg (PULMICORT) 0.5 mg INHALATION BID senna leaf extract 176 mg/5 mL 528 mg 15 mL OROGASTRIC BID carboxymethylcellulose sodium 1-2 Drop (CELLUVISC) 1-2 Drop BOTH EYES PRN polyvinyl alcohol-povidone 1.4-0.6 % 1 Drop (REFRESH) 1 Drop BOTH EYES QID PRN heparin 1,000 unit/mL 4,000 Units injection 4,000 Units INTRAVENOUS 3 Times weekly with dialysis heparin 5,000 Units injection 5,000 Units SUBCUTANEOUS q 12 H dextrose 40 % 15 g 15 g ORAL PRN Or glucagon 1 mg injection (GLUCAGEN) 1 mg INTRAMUSCULAR PRN Or dextrose 50% in water 25 mL syringe 12.5 g INTRAVENOUS PRN Chlorhexidine Gluconate 0.12 % 15 mL (PERIDEX) 15 mL ORAL q 12 H Lines, Drains, and Airways Line Central Line Double Lumen 02/01/18 0815 Peripherally Inserted (PICC) Left Arm 7 days Drain Drain/Tube 01/19/18 1015 Midline Abdomen 19 days GI Feed/Drain 01/27/18 Assessment Gastrostomy 12 days Drain/Tube 02/02/18 0300 Fecal Management System Rectum 6 days Condom Catheter 02/02/18 2200 5 days Airway Airway Tracheostomy 01/27/18 12 days PHYSICAL EXAM PERFORMED: General: Ill Cardiovascular: Regular rhythm Respiratory: Clear to auscultation Abdomen: Soft Extremities: Edema- Yes Neurologic: Comatose Respiratory/Nursing Documentation: O2 Therapy: Ventilator (02/08/18 07) Invasive Ventilator Mode: Continuous Mandatory Ventilation (02/08/18 07) Set Ventilator Respiratory Rate (BPM): 16 (02/08/18 699) Total Respiratory Rate (BPM): 31 (02/08/18699) Tidal Volume Set (mL): 500 (02/08/18699) Exhaled Tidal Volume (mL): 454 (02/08/18699) Minute Volume (L): 16.3 (02/08/18699) Peak Inspiratory Pressure (cm H2O): 19 (02/08/18699) PEEP/CPAP (cm H2O): 5 (02/08/18699) HEMODYNAMIC DATA: Reviewed NUTRITION: Enteral Feeds: No; TPN DATA: Diagnostic tests reviewed for today's visit, films/specimens were personally reviewed by me: Most recent labs and imaging results. LABS: Recent Labs 02/08/1845 02/07/18 0902/06/18 0556 WBC 7.01 8.47 < > 9.62* RBC 2.33* 2.20* < > 2.35* HB 6.8* 6.3* < > 6.7* HCT 21.4* 19.9* < > 21.5* MCV 91.8 90.5 < > 91.5 PLT 292 303 < > 286 GLUC 141* 147* -- 155* BUN 102* 100* -- 83* CREAT 3.72* 3.65* -- 3.44* NA 146* 144 -- 141 K 4.0 4.1 -- 4.2 CHLOR 115* 111* -- 109* CO2 18* 20* -- 21 TPROT -- -- -- 5.3* ALB -- -- -- 1.1* CA 7.2* 7.1* -- 6.8* ALKPHOS -- -- -- 333* TBILI -- -- -- 2.9* AST -- -- -- 104* ALT -- -- -- 92* MG -- 2.3 -- 2.1 < > = values in this interval not displayed. ABG: Invalid input(s): [id number] Assessment/Plan IMPRESSION: Critical Care Documentation: The patient has the following organ/system impairment(s): Respiratory failure (Acute) AAA rupture and multipe re-ops; wound vac LRTI; possible aspiration Autonomic insufficiency TERENCE; was on CRRT Resolving ileus Rx HCAP Hepatic insufficiency Anoxic encephalopathy Anemia-multifactorial MMP CRITICAL CARE PLAN: CXR and vbg D/C tube feeds Guarded outlook Follow Hgb Change pepcid to PPI LTAC ultimately This patient has a high probability of sudden, clinically significant deterioration, which requires the highest level of physician preparedness to intervene urgently. I managed/supervised life or organ supporting interventions that required frequent physician assessment. I devoted my full attention to the direct care of this patient for the amount of time indicated below. Time I spent with family or surrogate(s) is included only if the patient was incapable of providing the necessary information or participating in medical decision making. Time devoted to teaching is not included. Discussed with staff/patient/family Time spent providing critical care services: 30 minutes excluding procedures. SIGNATURE: Shyam Degroot MD PATIENT NAME: Naveen Akins IONIZED CALCIUM Collected: 02/08/2018 Status: F Source: [facility] [address] [place] [address] SYSTEM REPOSITORY TYPE CODE TESTS RESULT OUT OF REFERENCE UNITS RANGE LAB CAION(LOINC 4.43-4.93 mg/dL ) Low Ionized 4.28 Calcium LAB PHCAI(LOINC 7.320-7.420 ) pH 7.353 LAB CAPH(LOINC) 4.36-4.73 mg/dL Low Ionized 4.18 Ca,PH7.4 Performed By: #### IONCA #### [place] [address] BASIC PANEL Collected: 02/08/2018 Status: F Source: [facility] 6:45 PENDING SALE TO [facility] REPOSITORY TYPE CODE TESTS RESULT OUT OF REFERENCE UNITS RANGE LAB NA(LOINC) 136-145 mEq/L Sodium High Blood 146 LAB K(LOINC) 3.5-5.1 mEq/L Potassium Blood 4.0 LAB CL(LOINC) 98-107 mEq/L Chloride High Blood 115 LAB CO2(LOINC) 21-32 mEq/L Low CO2 Blood 18 LAB GLU(LOINC) 70-99 mg/dL Glucose High Blood 141 LAB BUN(LOINC) 7-18 mg/dL BUN High Blood 102 LAB CREA(LOINC 0.67-1.17 mg/dL ) High Creatinine Blood 3.72 LAB CA(LOINC) 8.5-10.1 mg/dL Low Calcium Blood 7.2 LAB ANGAP(LOIN 8-16 C) Anion High Gap 17 Performed By: #### P8 #### [facility] [address] [place] [id number] HEMOGRAM/DIFF Collected: 02/08/2018 Status: F Source: [facility] 6:45 AM HEALTH SYSTEM REPOSITORY TYPE CODE TESTS RESULT OUT OF REFERENCE UNITS RANGE LAB WBC(LOINC) 4.23-9.07 thou/cmm WBC 7.01 LAB RBC(LOINC) 4.63-6.08 mil/cmm Low RBC 2.33 LAB HGB(LOINC) 13.7-17.5 g/dL Low Hgb alert 6.8 LAB HCT(LOINC) 40.1-51.0 % Low Hct 21.4 LAB MCV(LOINC) 83.2-95.6 fl MCV 91.8 LAB MCH(LOINC) 25.7-32.2 pg MCH 29.2 LAB MCHC(LOINC 32.3-36.5 % ) Low MCHC 31.8 LAB RDW(LOINC) 11.6-14.4 % RDW High 18.4 LAB RDWSD(LOIN 36.1-45.8 fl C) RDW SD High 60.6 LAB PLT(LOINC) 141-365 thou/cmm Platelet 292 LAB MPV(LOINC) 8.7-12.0 fl MPV 11.1 LAB SEG(LOINC) % Seg Neutrophil 75.3 LAB IGRE(LOINC % ) Immature Grans 1.00 LAB LYMPH(LOIN % C) Lymphocyte 15.4 LAB MNO(LOINC) % Monocyte 3.9 LAB EOSIN(LOIN % C) Eosinophil 4.3 LAB BASO(LOINC % ) Basophil 0.1 LAB SEGN(LOINC 1.78-5.38 thou/cmm ) Abs. Neut (ANC) 5.28 LAB IGAB(LOINC 0.00-0.05 thou/cmm ) Abs High Immature Grans 0.07 LAB LYMN(LOINC 0.84-2.85 thou/cmm ) Abs. Lymph 1.08 LAB MONON(LOIN 0.30-0.82 thou/cmm C) Low Abs. Rincon 0.27 LAB EOSN(LOINC 0.04-0.54 thou/cmm ) Abs. Eosin 0.30 LAB BASON(LOIN 0.01-0.08 thou/cmm C) Abs. Baso 0.01 Result Comment: Smear scanned; tech agrees with automated differential Performed By: #### [id number] #### [facility] [address] [place] [address] ALLIED HEALTH Observed: 02/08/2018 Status: COMPLETED Source: [place] 1:00 AM [facility] OTHER [place] REPOSITORY HNO ID: [id number] Author: Chaplain Robbins (Chaplain) Service: Spiritual Care Author Type: Envelope Stamping Machine Operator Type: Allied Health Filed: 02/08/2018 10:49 AM Note Text: SPIRITUALCARE Spiritual Care Visit- Brief Note Name: Naveen Akins Date: February 08, 2018 Notes: Family in denial. Waiting for a miracle. Envelope Stamping Machine Operator Signature: Chaplain Rosendo To contact the Spiritual Care Department: Please call [phone] or Page the On-Call Envelope Stamping Machine Operator at pager [phone] Thank you for the opportunity to be of service. This is an electronically created document. IF PRINTED, PLEASE DO NOT REMOVE FROM THE CHART OR MODIFY PRINTED COPY. PROCEDURE Observed: 02/08/2018 Status: COMPLETED Source: [place] 12:43 AM [facility] REPOSITORY HNO ID: [id number] Author: Dionicio Stevens Service: Vascular Surgery Author Type: Resident Type: Procedures Filed: 02/08/2018 12:54 AM Note Text: Attestation signed by Araceli Reynaga at 02/08/2018 9:16 AM Araceli Reynaga MD BEDSIDE PROCEDURE NOTE PROCEDURE DATE: February 08, 2018 PROCEDURE START TIME: 00:20 PRIMARY PROCEDURALIST: Dionicio Stevens MD VISUAL ARTS TEACHER(S): Patient's Nurse and RT at bedside assisting INFORMED CONSENT: Daughter at bedside in agreement UNIVERSAL PROTOCOL / SAFETY CHECKLIST Sign in Communication: Completed Time Out: Team Confirms the Correct Patient, Correct Procedure, Correct Site and Site Marking, Correct Position (if applicable), Prep and Dry Time (if applicable). Time: 00:20 Affirmation of Time Out: YES Sign Out Discussion: Completed PROCEDURE: Bedside Tracheostomy Exchange for dysfunctional cuff. Trach Sutures removed H2O2 used to sterilize the site Vent disconnected pre-existing trach removed over Cook catheter (cut to size) New 8-Shiley placed and cuff inflated Vent reconnected and Trach secured Patient tolerated procedure well No complications SIGNATURE: Dionicio Stevens MD PATIENT NAME: Naveen Akins DATE: February 08, 2018 TIME: 12:44 AM PAGER/CONTACT #: [phone] PROGRESS Observed: 02/07/2018 Status: COMPLETED Source: [place] 4:39 PM [facility] REPOSITORY [facility] ID: [id number] Author: Paulo Lovelace (Cns) Service: Critical Care Author Type: Nurse Specialist Type: Progress Notes Filed: 02/07/2018 4:43 PM Note Text: MICU - PROGRESS NOTE SERVICE DATE: 02/07/2018 SERVICE TIME: 4:39 PM Admission Date: 01/12/2018 AGE: [age] year old LOS: 26 days Subjective REASON FOR ICU ADMISSION: Respiratory Failure Objective PROBLEMS: ACTIVE PROBLEM LIST Gallstone Pancreatitis Ruptured Abdominal Aortic Aneurysm (Aaa) (Hcc) Dic (Disseminated Intravascular Coagulation) (Hcc) Acute Respiratory Failure (Hcc) Cardiac Arrest (Hcc) Hypokalemia Hypomagnesemia Hypophosphatemia Anoxic Encephalopathy (Hcc) Aaa (Abdominal Aortic Aneurysm, Ruptured) (Hcc) Obesity, Class I, Bmi 30-34.9 Terence (Acute Kidney Injury) (Hcc) Ileus (Hcc) Acute Liver Failure Without Hepatic Coma PAST MEDICAL HISTORY Diagnosis Date - DIC (disseminated intravascular coagulation) (HCC) 01/12/2018 PAST SURGICAL HISTORY Procedure Laterality Date - LAP CHOLECYSTECT/CHOLANGIOGRAPHY 05-28-09 - PICC LINE INSERTION (PICC TEAM) (AK) 01/31/2018 - PICC LINE INSERTION (PICC TEAM) (AK) 02/01/2018 - REPAIR UMBILICAL NATAN,5+Y/O,REDUC 05-28-09 Social History Marital status: Spouse name: Shelly Years of education: 11 Number of children: 4 Occupational 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 BP 104/60 Pulse 103 Temp (Src) 98.2 (Temporal Artery) Resp 22 Ht 5' 7.992 (1.73m) Wt 192 lb 14.4 oz (87.5kg) SpO2 100% BMI 29.34 kg/(m2). Temp (24hrs), Av.8 ?C (98.2 ?F), Min:35.9 ?C (96.6 ?F), Max:37.5 ?C (99.5 ?F) NET FLUID BALANCE Intake/Output Summary (Last 24 hours) at 02/07/18 1639 Last data filed at 02/07/18 1400 Gross per 24 hour Intake 1325 ml Output 1301 ml Net 24 ml MEDICATIONS Current Facility-Administered Medications: Parenteral Nutrition - Adult INTRAVENOUS ONCE TPN (1800 START) ciprofloxacin 400 mg in D5W 200 mL (CIPRO) 400 mg INTRAVENOUS q 24 HR Parenteral Nutrition - Adult INTRAVENOUS ONCE TPN (1800 START) midodrine (PROAMITINE) tab(s) 15 mg 15 mg PEG q 8 H carboxymethylcellulose sodium 1-2 Drop (CELLUVISC) 1-2 Drop BOTH EYES TID 0.9% NaCl 10 mL 10 mL INTRAVENOUS q 12 H 0.9% NaCl 20 mL 20 mL INTRAVENOUS PRN ipratropium-albuterol 3 mL nebulizer solution (DUONEB) 3 mL INHALATION QID metoclopramide HCl 5 mg injection (REGLAN) 5 mg INTRAVENOUS q 12 H 0.9% NaCl 10 mL 10 mL INTRAVENOUS q 12 H 0.9% NaCl 20 mL 20 mL INTRAVENOUS PRN magnesium sulfate in water 2 g in sterile water 50 ml 2 g INTRAVENOUS PRN fentaNYL 50 mcg/mL 25-50 mcg injection (SUBLIMAZE) 25-50 mcg INTRAVENOUS q 2 H PRN budesonide 0.5 mg/2 mL 0.5 mg (PULMICORT) 0.5 mg INHALATION BID senna leaf extract 176 mg/5 mL 528 mg 15 mL OROGASTRIC BID carboxymethylcellulose sodium 1-2 Drop (CELLUVISC) 1-2 Drop BOTH EYES PRN polyvinyl alcohol-povidone 1.4-0.6 % 1 Drop (REFRESH) 1 Drop BOTH EYES QID PRN heparin 1,000 unit/mL 4,000 Units injection 4,000 Units INTRAVENOUS 3 Times weekly with dialysis heparin 5,000 Units injection 5,000 Units SUBCUTANEOUS q 12 H dextrose 40 % 15 g 15 g ORAL PRN Or glucagon 1 mg injection (GLUCAGEN) 1 mg INTRAMUSCULAR PRN Or dextrose 50% in water 25 mL syringe 12.5 g INTRAVENOUS PRN Chlorhexidine Gluconate 0.12 % 15 mL (PERIDEX) 15 mL ORAL q 12 H Lines, Drains, and Airways Line Central Line Double Lumen 02/01/18 0815 Peripherally Inserted (PICC) Left Arm 6 days Drain Drain/Tube 01/19/18 1015 Midline Abdomen 19 days GI Feed/Drain 01/27/18 Assessment Gastrostomy 11 days Drain/Tube 02/02/18 0300 Fecal Management System Rectum 5 days Condom Catheter 02/02/18 2200 4 days Airway Airway Tracheostomy 01/27/18 11 days PHYSICAL EXAM PERFORMED: Cardiovascular: Regular rhythm Respiratory: Rhonchi bilat %FIO2 Min: 30 Max: 30 Abdomen: Distended Extremities: Edema- Yes Generalized edema Neurologic: Unresponsive Respiratory/Nursing Documentation: O2 Therapy: Ventilator (02/07/181599) Invasive Ventilator Mode: Continuous Mandatory Ventilation (02/07/181599) Set Ventilator Respiratory Rate (BPM): 16 (02/07/18 1600) Total Respiratory Rate (BPM): 38 (02/07/181599) Tidal Volume Set (mL): 500 (02/07/18 1600) Exhaled Tidal Volume (mL): 676 (02/07/181599) Minute Volume (L): 18.9 (02/07/18 1600) Peak Inspiratory Pressure (cm H2O): 24 (02/07/18 1600) PEEP/CPAP (cm H2O): 5 (02/07/181599) HEMODYNAMIC DATA: Reviewed NUTRITION: Enteral Feeds: Yes NPO and TPN DATA: Diagnostic tests reviewed for today's visit, films/specimens were personally reviewed by me: Most recent labs and imaging results. LABS: Recent Labs 02/07/18 0900 02/06/18 0556 WBC 8.47 < > 9.62* RBC 2.20* < > 2.35* HB 6.3* < > 6.7* HCT 19.9* < > 21.5* MCV 90.5 < > 91.5 PLT 303 < > 286 GLUC 147* -- 155* BUN 100* -- 83* CREAT 3.65* -- 3.44* NA 144 -- 141 K 4.1 -- 4.2 CHLOR 111* -- 109* CO2 20* -- 21 TPROT -- -- 5.3* ALB -- -- 1.1* CA 7.1* -- 6.8* ALKPHOS -- -- 333* TBILI -- -- 2.9* AST -- -- 104* ALT -- -- 92* MG 2.3 -- 2.1 < > = values in this interval not displayed. ABG: Invalid input(s): [id number] Assessment/Plan IMPRESSION: Critical Care Documentation: The patient has the following organ/system impairment(s): Respiratory failure (with Hypoxemia) 1.Acute hypoxic respiratory failure/ARDS/Bilat pleuaral effusions-remains intubated on 40% FIO2-periodic Seth Smith respirations 2. Ruptured AAA ?Sp repair-Wound closed vac in place 3.SP cardiac arrest 4.Shock-Levophed support is off 5. Pt is nonresponsive-even to noxious stimuli-Encephalopathy 6.Thrombocytopenia improving-platelet 286,000 7.Nutritional rwouesi-KPA-oaqh feedings increased to 30 ml/hr 8.Sinus tachycardia-SVT resolved-frequent PACs this AM 9.TERENCE on ERM-bschzotfg-bfaiddsdu urine now 10. Fentanyl drip is off 11. Ileus/gastroparesis-resolving 12. Acute blood loss anemia-Hgb is 6.3?GM-transfused 1 unit packed RBCs 13.Hyperlipidemia improving 14.Trach /PEG 15 Afebrile 16. Slight worsening of leukocytosis 17. Now with Enterobacter and xyloxidans in sputum-ID consulted and started on Cipro ? 18.Select soon This patient has a high probability of sudden, clinically significant deterioration, which requires the highest level of physician preparedness to intervene urgently. I managed/supervised life or organ supporting interventions that required frequent physician assessment. I devoted my full attention to the direct care of this patient for the amount of time indicated below. Time I spent with family or surrogate(s) is included only if the patient was incapable of providing the necessary information or participating in medical decision making. Time devoted to teaching is not included. Discussed with staff/patient/family Time spent providing critical care services: 40 minutes excluding procedures. SIGNATURE: Paulo Lovelace APRN.MAINTENANCE TEAM MEMBER PATIENT NAME: Naveen Akins DATE: February 07, 2018 TIME: 4:39 PM ALLIED HEALTH Observed: 02/07/2018 Status: COMPLETED Source: [place] 3:45 PM CLINIC OTHER CAMPUS REPOSITORY HNO ID: [id number] Author: Chaplain Serna (Chaplain) Service: Spiritual Care Author Type: Envelope Stamping Machine Operator Type: Allied Health Filed: 02/07/2018 4:23 PM Note Text: SPIRITUALCARE Spiritual Care Visit- Brief Note Name: Naveen Akins Date: February 07, 2018 Notes: Follow-up visit w/fam in 3d fl WR--they continue to hold on to hope. A little later, silent prayer outside pt's rm (curtain pulled--he appeared to be busy w/staff) Will continue to follow as needed. Envelope Stamping Machine Operator Signature: Chaplain Daphne To contact the Spiritual Care Department: Please call [phone] or Page the On-Call Envelope Stamping Machine Operator at pager [phone] Thank you for the opportunity to be of service. This is an electronically created document. IF PRINTED, PLEASE DO NOT REMOVE FROM THE CHART OR MODIFY PRINTED COPY. CONSULT Observed: 02/07/2018 Status: COMPLETED Source: [place] 2:32 PM CLINIC OTHER CAMPUS REPOSITORY O ID: [id number] Author: Dorcas Mcdonnell III Service: Infectious Disease Author Type: Physician Type: Consults Filed: 02/07/2018 9:19 PM Note Text: CONSULT: INFECTIOUS DISEASE SERVICE SERVICE DATE: 02/07/2018 SERVICE TIME: 2:32 PM REASON FOR CONSULT: sepsis? REQUESTING PHYSICIAN: Dr. Granda PRIMARY CARE PHYSICIAN: Megan Hurst MD Subjective 77 year old male who presented on 01/12 with ruptured aortic aneurysm. Went emergently to the OR on day of admission. Suffered cardiac arrest prior to surgery. Surgery was complicated by post-operative hemorrhage requiring return back to the OR. Later to OR due to serosal tears. Was not able to be weaned from ventilator and eventually underwent tracheostomy. Had TERENCE, previously on CVVH. We have been consulted now for gram negatives in the sputum. Spoke to ICU attending- he said that he is concerned since patient has been more tachypneic today. ALLERGIES No Known Allergies PAST MEDICAL HISTORY Diagnosis Date - DIC (disseminated intravascular coagulation) (HCC) 01/12/2018 PAST SURGICAL HISTORY Procedure Laterality Date - LAP CHOLECYSTECT/CHOLANGIOGRAPHY 05-28-09 - PICC LINE INSERTION (PICC TEAM) (AK) 01/31/2018 - PICC LINE INSERTION (PICC TEAM) (AK) 02/01/2018 - REPAIR UMBILICAL NATAN,5+Y/O,REDUC 05-28-09 FAMILY HISTORY Problem Relation Age of Onset - Coronary Artery Disease Father - None Mother Social History Substance Use Topics - Smoking status: Never Smoker - Smokeless tobacco: Not on file - Alcohol use No Prescriptions Prior to Admission: metoprolol succinate(TOPROL XL 50 MG 24 HR TAB) Take one(1) tablet daily. Disp: Rfl: 0 01/11/2018 ASPIRIN 325 MG TAB Take one(1) tablet daily. Disp: Rfl: 0 01/11/2018 triamterene/hydrochlorothiazid(DYAZIDE 37.5 MG-25 MG CAP) take one half (1/2) tablet daily Disp: Rfl: 0 01/11/2018 LIPITOR 10 MG TAB Take one(1) tablet daily. Disp: Rfl: 0 01/11/2018 Current hospital medications: Parenteral Nutrition - Adult INTRAVENOUS ONCE TPN (1800 START) ciprofloxacin 400 mg in D5W 200 mL (CIPRO) 400 mg INTRAVENOUS q 24 HR Parenteral Nutrition - Adult INTRAVENOUS ONCE TPN (1800 START) NORepinephrine 16 mg in D5W 250 mL (LEVOPHED) 0.6-30 mcg/min INTRAVENOUS CONTINUOUS midodrine (PROAMITINE) tab(s) 15 mg 15 mg PEG q 8 H pantoprazole 40 mg injection (PROTONIX) 40 mg INTRAVENOUS DAILY (6 AM) carboxymethylcellulose sodium 1-2 Drop (CELLUVISC) 1-2 Drop BOTH EYES TID 0.9% NaCl 10 mL 10 mL INTRAVENOUS q 12 H 0.9% NaCl 20 mL 20 mL INTRAVENOUS PRN ipratropium-albuterol 3 mL nebulizer solution (DUONEB) 3 mL INHALATION QID metoclopramide HCl 5 mg injection (REGLAN) 5 mg INTRAVENOUS q 12 H 0.9% NaCl 10 mL 10 mL INTRAVENOUS q 12 H 0.9% NaCl 20 mL 20 mL INTRAVENOUS PRN magnesium sulfate in water 2 g in sterile water 50 ml 2 g INTRAVENOUS PRN fentaNYL 50 mcg/mL 25-50 mcg injection (SUBLIMAZE) 25-50 mcg INTRAVENOUS q 2 H PRN budesonide 0.5 mg/2 mL 0.5 mg (PULMICORT) 0.5 mg INHALATION BID senna leaf extract 176 mg/5 mL 528 mg 15 mL OROGASTRIC BID carboxymethylcellulose sodium 1-2 Drop (CELLUVISC) 1-2 Drop BOTH EYES PRN polyvinyl alcohol-povidone 1.4-0.6 % 1 Drop (REFRESH) 1 Drop BOTH EYES QID PRN heparin 1,000 unit/mL 4,000 Units injection 4,000 Units INTRAVENOUS 3 Times weekly with dialysis heparin 5,000 Units injection 5,000 Units SUBCUTANEOUS q 12 H dextrose 40 % 15 g 15 g ORAL PRN glucagon 1 mg injection (GLUCAGEN) 1 mg INTRAMUSCULAR PRN dextrose 50% in water 25 mL syringe 12.5 g INTRAVENOUS PRN Chlorhexidine Gluconate 0.12 % 15 mL (PERIDEX) 15 mL ORAL q 12 H Allergies As of Date: 01/12/2018 (No Known Allergies) Fully Assessed 01/12/2018 COMPLETE REVIEW OF SYSTEMS: Unable to obtain secondary to patient status Objective PHYSICAL EXAM: Physical Exam Performed: GENERAL: Lying in bed. On ventilator. Spontaneously opened eyes to voice but not interactive SKIN: Skin color, texture, turgor normal. No rashes or lesions. EYES: PERRLA, sclera anicteric, conjunctiva clear OROPHARYNX: Unable to assess as I could not open patient's mouth NECK: Tracheostomy in place. No surrounding erythema. LUNGS: Diffuse inspiratory and expiratory wheezes with some crackles in the right lower lung field. CARDIAC: Normal S1 and S2; no rubs, murmurs, or gallops, Rhythm: regular rate and rhythm ABDOMEN: Midline incision without redness. Retention sutures without any redness. Small amount of serous drainage from one of the retention sutures on the right. EXTREMITIES: No edema PULSES: 2+ radial, 2+ dorsalis pedis LYMPH: no cervical or axillary adenopathy BP 110/54 Pulse 105 Temp (Src) 98.1 (Temporal Artery) Resp 42 Ht 5' 7.992 (1.73m) Wt 192 lb 14.4 oz (87.5kg) SpO2 99% BMI 29.34 kg/(m2). DATA: Diagnostic tests reviewed for today's visit: Hemoglobin (g/dL) Date Value 11/14/2017 15.0 HGB (g/dL) Date Value 02/07/2018 6.3 Hematocrit (%) Date Value 02/07/2018 19.9 WBC (thou/cmm) Date Value 02/07/2018 8.47 Component Latest Ref Rng AND Units 02/07/2018 Sodium 136 - 145 mEq/L 144 Potassium 3.5 - 5.1 mEq/L 4.1 Chloride 98 - 107 mEq/L 111 (H) CO2 21 - 32 mEq/L 20 (L) Glucose 70 - 99 mg/dL 147 (H) BUN 7 - 18 mg/dL 100 (H) Creatinine 0.67 - 1.17 mg/dL 3.65 (H) Calcium 8.5 - 10.1 mg/dL 7.1 (L) Anion Gap 8 - 16 17 (H) 02/03 sputum- Achromobacter xylosidans and Enterobacter cloacae 02/06 CXR- faint mixed interstitial and airspace opacities at the left lower lung zone Impression/Recommendations 1) Achromobacter and enterobacter from sputum- would treat as a tracheitis/lower respiratory tract infection given tachypnea, wheezing on exam. 2) RUptured aortic aneurysm s/p repair 3) TERENCE with Estimated Creatinine Clearance: 18.2 mL/min (A) (based on SCr of 3.65 mg/dL (H)). PLAN; 1) Agree with ciprofloxacin 400mg daily x 7 days SIGNATURE: Dorcas Mcdonnell III, MD PATIENT NAME: Naveen Akins DATE: February 07, 2018 TIME: 2:32 PM PAGER: [phone] PROGRESS Observed: 02/07/2018 Status: COMPLETED Source: [place] 2:17 PM CLINIC OTHER CAMPUS REPOSITORY HNO ID: [id number] Author: Piage [facility]) FLAVIA Mcmahan Service: Nursing Author Type: Health Paraprofessional Interpreter Type: Progress Notes Filed: 02/07/2018 2:17 PM Note Text: ID Consult to Dr. Mcdonnell: verified on treatment team February 07, 2018 2:17 PM EKG (AK,AV,EU,FV,HL,CYNTHIA,MM,SP) Observed: Status: F Source: [place] 02/07/2018 1:51 PM CLINIC OTHER CAMPUS REPOSITORY NAME : NAVEEN AKINS PID : [id number] : 1940 Gender : Male Race : ORD : [id number] Procedure Date : Feb 07 2018 13:51 Edit Date : Feb 08 2018 15:21 Diagnosis:NORMAL SINUS RHYTHM PREMATURE ATRIAL COMPLEXES TREMOR ARTIFACT ST & T WAVE ABNORMALITY, CONSIDER ANTERIOR ISCHEMIA ABNORMAL ECG NONSPECIFIC T WAVE ABNORMALITY, WORSE IN LATERAL LEADS Confirmed by MD Samuel Sergey ([id number]) on 02/08/2018 3:21:48 PM Ventricular Rate : 105 BPM Atrial Rate : 105 BPM P-R Interval : 114 ms QRS Duration : 66 ms Q-T Interval : 350 ms QTC Calculation(Bezet) : 462 ms P [place] : -32 degrees R [place] : 34 degrees T [place] : 73 degrees Test Reason : Check QT Location : 3 : [facility] 3233 Overread By : MD Smauel Sergey Editted By : MD Samuel Sergey Referred By : PAULO LOVELACE Acquired by : Conor GREENE CONSULT PROG Observed: 02/07/2018 Status: COMPLETED Source: [place] 12:56 PM CLINIC OTHER CAMPUS REPOSITORY HNO ID: [id number] Author: Elder Yu) Kalee Service: Critical Care Author Type: Physician Type: Consult Progress Note Filed: 02/07/2018 2:24 PM Note Text: ICU - PROGRESS NOTE SERVICE DATE: 02/07/2018 SERVICE TIME: 12:56 PM Admission Date: 01/12/2018 AGE: [age] year old LOS: 26 days Subjective REASON FOR ICU ADMISSION: AAA rupture s/p repair ROS not possible 2/2 mental status Objective VITAL SIGNS (last 24hrs min/max): Temp Av.8 ?C (98.2 ?F) Min: 35.9 ?C (96.6 ?F) Max: 37.5 ?C (99.5 ?F) Pulse Av.2 Min: 100 Max: 124 No Data Recorded Cuff BP Min: 96/53 Max: 136/93 Pain Score: 0/10 Vital signs reviewed. BP 110/59 Pulse 109 Temp (Src) 98.1 (Temporal Artery) Resp 36 Ht 5' 7.992 (1.73m) Wt 192 lb 14.4 oz (87.5kg) SpO2 100% BMI 29.34 kg/(m2). Temp (24hrs), Av.8 ?C (98.2 ?F), Min:35.9 ?C (96.6 ?F), Max:37.5 ?C (99.5 ?F) NET FLUID BALANCE Intake/Output Summary (Last 24 hours) at 02/07/18 1256 Last data filed at 02/07/18 0733 Gross per 24 hour Intake 1325 ml Output 852 ml Net 473 ml MEDICATIONS Current Facility-Administered Medications: Parenteral Nutrition - Adult INTRAVENOUS ONCE TPN (1800 START) NORepinephrine 16 mg in D5W 250 mL (LEVOPHED) 0.6-30 mcg/min INTRAVENOUS CONTINUOUS midodrine (PROAMITINE) tab(s) 15 mg 15 mg PEG q 8 H pantoprazole 40 mg injection (PROTONIX) 40 mg INTRAVENOUS DAILY (6 AM) carboxymethylcellulose sodium 1-2 Drop (CELLUVISC) 1-2 Drop BOTH EYES TID 0.9% NaCl 10 mL 10 mL INTRAVENOUS q 12 H 0.9% NaCl 20 mL 20 mL INTRAVENOUS PRN ipratropium-albuterol 3 mL nebulizer solution (DUONEB) 3 mL INHALATION QID metoclopramide HCl 5 mg injection (REGLAN) 5 mg INTRAVENOUS q 12 H 0.9% NaCl 10 mL 10 mL INTRAVENOUS q 12 H 0.9% NaCl 20 mL 20 mL INTRAVENOUS PRN magnesium sulfate in water 2 g in sterile water 50 ml 2 g INTRAVENOUS PRN fentaNYL 50 mcg/mL 25-50 mcg injection (SUBLIMAZE) 25-50 mcg INTRAVENOUS q 2 H PRN budesonide 0.5 mg/2 mL 0.5 mg (PULMICORT) 0.5 mg INHALATION BID senna leaf extract 176 mg/5 mL 528 mg 15 mL OROGASTRIC BID carboxymethylcellulose sodium 1-2 Drop (CELLUVISC) 1-2 Drop BOTH EYES PRN polyvinyl alcohol-povidone 1.4-0.6 % 1 Drop (REFRESH) 1 Drop BOTH EYES QID PRN heparin 1,000 unit/mL 4,000 Units injection 4,000 Units INTRAVENOUS 3 Times weekly with dialysis heparin 5,000 Units injection 5,000 Units SUBCUTANEOUS q 12 H dextrose 40 % 15 g 15 g ORAL PRN Or glucagon 1 mg injection (GLUCAGEN) 1 mg INTRAMUSCULAR PRN Or dextrose 50% in water 25 mL syringe 12.5 g INTRAVENOUS PRN Chlorhexidine Gluconate 0.12 % 15 mL (PERIDEX) 15 mL ORAL q 12 H Lines, Drains, and Airways Line Central Line Double Lumen 02/01/18 0815 Peripherally Inserted (PICC) Left Arm 6 days Drain Drain/Tube 01/19/18 1015 Midline Abdomen 19 days GI Feed/Drain 01/27/18 Assessment Gastrostomy 11 days Drain/Tube 02/02/18 0300 Fecal Management System Rectum 5 days Condom Catheter 02/02/18 2200 4 days Airway Airway Tracheostomy 01/27/18 11 days PHYSICAL EXAM PERFORMED: Constitutional: Lying in bed, comatose HEENT: pupils sluggish Cardiovascular: Regular rhythm Respiratory: breath sounds equal bilaterally %FIO2 Min: 30 Max: 30 Abdomen: Open on wound vac Extremities: Edema- Yes, Peripheral pulses present Neurologic: Comatose and unresponsive Respiratory/Nursing Documentation: O2 Therapy: Ventilator (02/07/181116) Invasive Ventilator Mode: Continuous Mandatory Ventilation (02/07/181116) Set Ventilator Respiratory Rate (BPM): 16 (02/07/181116) Total Respiratory Rate (BPM): 33 (02/07/181116) Tidal Volume Set (mL): 500 (02/07/181116) Exhaled Tidal Volume (mL): 439 (02/07/181116) Minute Volume (L): 15.5 (02/07/181116) Peak Inspiratory Pressure (cm H2O): 19 (02/07/181116) PEEP/CPAP (cm H2O): 5 (02/07/181116) HEMODYNAMIC DATA: Reviewed NUTRITION: Enteral Feeds: Yes Tube Feeds DATA: Diagnostic tests reviewed for today's visit, films/specimens were personally reviewed by me: Most recent labs and imaging results. LABS: Recent Labs 02/07/18 0900 02/06/18 0556 WBC 8.47 < > 9.62* RBC 2.20* < > 2.35* HB 6.3* < > 6.7* HCT 19.9* < > 21.5* MCV 90.5 < > 91.5 PLT 303 < > 286 GLUC 147* -- 155* BUN 100* -- 83* CREAT 3.65* -- 3.44* NA 144 -- 141 K 4.1 -- 4.2 CHLOR 111* -- 109* CO2 20* -- 21 TPROT -- -- 5.3* ALB -- -- 1.1* CA 7.1* -- 6.8* ALKPHOS -- -- 333* TBILI -- -- 2.9* AST -- -- 104* ALT -- -- 92* MG 2.3 -- 2.1 < > = values in this interval not displayed. ABG: Invalid input(s): [id number] Assessment/Plan IMPRESSION: Critical Care Documentation: The patient has the following organ/system impairment(s): Encephalopathy and Respiratory failure (Acute) 77 year old male with PMH of AAA who was transferred to [facility] in shock 2/2 ruptured AAA c/b cardiac arrest s/p CPR and ROSC and s/p abdominal washout, repacking and repair of serosal tears. Has open abdomen and wound vac in place. Hemodynamically stable off pressors. Intubated and mechanically ventilated. Enterobacter and Xyloxidans on sputum. Tachypneic but maintaining sats Encephalopathy, ?anoxic TERENCE, off CVVH producing urine. Resolving ileus, no residuals on TF Anemia PLAN: Continue vent support EKG, if QTc is <500, start Cipro otherwise Meropenem. ID consult Wound vac and AAA per Vascular Nephro recs, monitor I-Os Increase TF ICU PPx Guarded Prognosis, LTACH placement eventually This patient has a high probability of sudden, clinically significant deterioration, which requires the highest level of physician preparedness to intervene urgently. I managed/supervised life or organ supporting interventions that required frequent physician assessment. I devoted my full attention to the direct care of this patient for the amount of time indicated below. Time I spent with family or surrogate(s) is included only if the patient was incapable of providing the necessary information or participating in medical decision making. Time devoted to teaching is not included. Discussed with staff/family Time spent providing critical care services: 35 minutes excluding procedures. SIGNATURE: Elder Granda MD PATIENT NAME: Naveen Akins DATE: February 07, 2018 TIME: 12:56 PM CASE MANAGEM Observed: 02/07/2018 Status: COMPLETED Source: [place] 12:49 PM [facility] REPOSITORY HNO ID: [id number] Author: Mel TylerRn) MAGALY Hickey Service: Care Management Author Type: Registered Nurse Type: Care Mgt Progress Note Filed: 02/07/2018 12:50 PM Note Text: CARE MANAGEMENT PROGRESS NOTE SERVICE DATE: 02/07/2018 SERVICE TIME: LOS: 26 days Spoke with Jenna MURRIETA. Update with family provided. CM to follow for transitional needs. SIGNATURE: Mel Hickey RN PATIENT NAME: Naveen Akins DATE: February 07, 2018 TIME: 12:49 PM PAGER/CONTACT #: CASE MANAGEM Observed: 02/07/2018 Status: COMPLETED Source: [place] 12:35 PM [facility] OTHER [place] REPOSITORY HNO ID: [id number] Author: Mel TylerRn) Edelmira RN Service: Care Management Author Type: Registered Nurse Type: Care Mgt Progress Note Filed: 02/07/2018 12:47 PM Note Text: CARE MANAGEMENT PROGRESS NOTE SERVICE DATE: 02/07/2018 SERVICE TIME: 1235 LOS: 26 days Chart reviewed. Spoke with Paramjit from [email or web address]. Able to accept patient at [facility] once family makes decision. Had long discussion with Shelly and daughter Ariadna. Family states they wish to continue with current code status Full code. States they are interested [facility] but have not toured facility yet. Both aware of Bed availability at [facility] but have not confirmed that as 1st Choice. Aware that it is their responsibility to provide LTAC choice for patient prior to patient being medically ready for DC. Encouraged family to provide LTAC choice by tomorrow. Emotional support given. Family demonstrates understanding. CM to follow for transitional planning. SIGNATURE: Mel Hickey RN PATIENT NAME: Naveen Akins DATE: February 07, 2018 TIME: 12:35 PM PAGER/CONTACT #: NUTRITION Observed: 02/07/2018 Status: COMPLETED Source: [place] 12:33 PM CLINIC OTHER CAMPUS REPOSITORY O ID: [id number] Author: Viry Wells) KRISHAN Mosher Service: NST-Nutrition Support Team Author Type: Registered Dietitian Type: Nutrition Filed: 02/07/2018 12:47 PM Note Text: Attestation signed by Perla Dudley at 02/07/2018 10:32 PM Discussed with the RD and agree with RD's findings and plan as documented in the RD's note. Cont TPN. Tolerating enteral feeds so far at low rate If he can get to goal rate will stop TPN tomorrow Perla Dudley MD NUTRITION SUPPORT TEAM TOPIC: NUTRITION SUPPORT TEAM PROGRESS NOTE PATIENT NAME: Naveen Akins DATE OF : 1940 DATE: 02/07/2018 Nutritional Status: MODERATE PROTEIN-CALORIE MALNUTRITION per RD 02/01/18 ? In the context of Acute Illness or Injury based on: Muscle Loss Moderate Loss Decline in Functional Status: Regressed ? NUTRITION CARE PLAN: ? Problem, Etiology and Signs/Symptoms: Altered GI function related to ileus/gastroparesis?as evidenced by need for TPN, and intolerance to TF, depletion of visceral status ? NST consult 01/16/18 for TPN support Interval History: LOS d 26, tolerating TPN, TF restarted currently at 20 cc/hr, tolerating TF as well, 0-5 residuals , +FMS, No pain Assessment: 77 year old male with Ruptured AAA s/p Emergent Repair, takeback washout, repair of serosal tears x2, on 01/12, hemorrhagic shock, acute resp failure with pulm edema, TERENCE, SVT s/p Third Look Laparotomy and?washout on 01/14, fourth look, washout, vac change on 01/16 ?remains on vent, continues on CRRT 01/19 ?X lap, wash out, partial fascial closure, wound vac change 01/20 pressors weaned off Remains on diprivan gtt 01/20 rt thoracentesis- breathing better 01/21 limited abdominal x lap and closure 01/22 levo at pm restarted 01/23 neuro consult, ? plans for trach/Peg 01/24 new femoral HD line per nephrology, working good 01/25 + emesis 01/26 started on Zosyn for GNR ( sputum) , TF off 01/27 plans for Peg/Trach 01/30 [facility] to eval, possible dc CRRT per renal?, ongoing ileus 01/31 HD to start 02/01 new PICC placement 02/03 last HD, starting to make urine 02/04 TF started ? Tmax: 37.3 WBC: 9.53 Edema: 3+ UE, LE Lines: ?Quad lumen, HD cath, all WNL Lytes: reviewed PAB: Dropped to 18.8 WT: ?87.5??kg ( down from 104 kg) GFR: 16.22 Trig : trending down 266, remains off diprivan and lipid in TPN--> reconsider lipids in TPN ? Recommendations: TPN renewed: dc'd NACL, K Phos TPN script: 1.5?L /24 hrs providing 1900?calories ( 23 kcals/kg ABW 84?kg) and 100 gms pro ( ~ 1.17 gms/kg ABW 84?kg) per day ? CHO:insulin ratio is ?98:1?, with 441 ?gms CHO in TPN , 55 units in TPN bag ? Goal for iLzbeth Renal is 42 cc/hr providing 2000 calories and 90 gms pro. Collaborated with Dr Dudley and orders written. Vitals: Temperature Max in 24 hours: Temp (24hrs), Av.8 ?C (98.2 ?F), Min:35.9 ?C (96.6 ?F), Max:37.5 ?C (99.5 ?F) Current Vital Signs: BP 110/59 Pulse 109 Temp 36.7 ?C (98.1 ?F) (Temporal Artery) Resp (!) 36 Ht 172.7 cm (5' 7.99) Wt 87.5 kg (192 lb 14.4 oz) SpO2 100% BMI 29.34 kg/m? Current Weight: Weight: 87.5 kg (192 lb 14.4 oz) Intake AND Output: Intake/Output Summary (Last 24 hours) at 02/07/18 1234 Last data filed at 02/07/18 0733 Gross per 24 hour Intake 1325 ml Output 852 ml Net 473 ml Laboratory Data: Recent Labs 02/07/18 0900 02/06/18 0556 02/05/18 0543 NA 144 141 140 K 4.1 4.2 3.9 CHLOR 111* 109* 106 CO2 20* 21 23 CREAT 3.65* 3.44* 3.04* BUN 100* 83* 70* GLUC 147* 155* 109* P 5.8* 6.1* 4.5 TPROT -- 5.3* -- ALB -- 1.1* -- MG 2.3 2.1 2.0 CA 7.1* 6.8* 7.0* Recent Labs 02/06/18 0556 PREALB 18.8* Viry Mosher RD, LD Pager: [phone] Increments: 3 PROGRESS Observed: 02/07/2018 Status: COMPLETED Source: [place] 11:18 AM CLINIC OTHER CAMPUS REPOSITORY [facility] ID: [id number] Author: Calli (Rn) MAGALY Bonilla Service: Wound/Ostomy Author Type: Registered Nurse Type: Progress Notes Filed: 02/07/2018 11:22 AM Note Text: WOUND CARE NURSE PROGRESS NOTE SERVICE DATE: 02/07/2018 SERVICE TIME: 1040 REASON FOR VISIT: Wound TIME SPENT (minutes): 30 Documentation from Wound Expert can be found in scanned documents. Patient seen by Shiloh Magana INDEPENDENT SALES REPRESENTATIVE and siva RN. Wound vac dressing changed to midline abdominal wound, using 2 white and 2 black foam. Wound measures 33 x 3 x 1.8 cm. Maintain at 150 mm Hg. Skin intact to coccyx and bilateral heels. Continue low air loss mattress, turn schedule, allevyn foam dressing to coccyx, and prevalon heel boots. Wound care to follow, plan to change wound vac dressing on Tuesday02/10/18. SIGNATURE: Calli Bonilla RN PATIENT NAME: Naveen Akins DATE: February 07, 2018 TIME: 11:19 AM CONTACT#: [id number] RBC PRODUCTS Collected: 02/07/2018 Status: F Source: [facility] 10:54 AM [place] [facility] REPOSITORY TYPE CODE TESTS RESULT OUT OF REFERENCE UNITS RANGE LAB UNIT1(LOINC ) Xmatch Unit 1 see below Result Comment: Compatible Performed By: #### RBCPS #### [place] [address] TYPE AND SCREEN Collected: 02/07/2018 Status: F Source: [facility] 10:30 AM [place] [facility] REPOSITORY TYPE CODE TESTS RESULT OUT OF REFERENCE UNITS RANGE LAB ABO(LOINC) O ABO Group LAB CREATIVE DEVELOPER(LOINC ) RH Type Positive LAB ABSCR(LOIN C) Antibody NEGATIVE Screen LAB BBCMT(LOIN C) Comment See Below Result Comment: Screen &/or Xmatch expires in 3 days at 12 midnight. Redraw patient at that time. Performed By: #### T&S #### [place] [id number] RBC PRODUCTS Collected: 02/07/2018 Status: F Source: [facility] 10:30 AM [facility] SYSTEM REPOSITORY TYPE CODE TESTS RESULT OUT OF REFERENCE UNITS RANGE LAB UNIT1(LOINC ) Xmatch Unit 1 see below Result Comment: Compatible Performed By: #### RBCPS #### [address] [address] PROGRESS Observed: 02/07/2018 Status: COMPLETED Source: [place] 10:13 AM CLINIC OTHER CAMPUS REPOSITORY HNO ID: [id number] Author: Shen Lorenzo Service: Nephrology Author Type: Physician Type: Progress Notes Filed: 02/07/2018 10:23 AM Note Text: Nephrology Progress Note Following for TERENCE. Pt is on ventilator (trached). Cannot do ROS. Does not follow command. Current Inpatient Medications: Current Facility-Administered Medications Ordered in Epic: Parenteral Nutrition - Adult INTRAVENOUS ONCE TPN (1800 START) H Edwin Dudley Parenteral Nutrition - Adult INTRAVENOUS ONCE TPN (1800 START) H Edwin Dudley Last Rate: 62.5 mL/hr at 02/07/18 0732 NORepinephrine 16 mg in D5W 250 mL (LEVOPHED) 0.6-30 mcg/min INTRAVENOUS CONTINUOUS Issac Contreras Stopped at 02/03/18 0430 midodrine (PROAMITINE) tab(s) 15 mg 15 mg PEG q 8 H Lora Soliz 15 mg at 02/07/18 0553 pantoprazole 40 mg injection (PROTONIX) 40 mg INTRAVENOUS DAILY (6 AM) Lora Soliz 40 mg at 02/07/18 0553 carboxymethylcellulose sodium 1-2 Drop (CELLUVISC) 1-2 Drop BOTH EYES TID Lora Soliz 1 Drop at 02/07/18 0823 0.9% NaCl 10 mL 10 mL INTRAVENOUS q 12 H Lora Soliz 10 mL at 02/07/18 0822 0.9% NaCl 20 mL 20 mL INTRAVENOUS PRN Lora Soliz ipratropium-albuterol 3 mL nebulizer solution (DUONEB) 3 mL INHALATION QID Lora Soliz 3 mL at 02/07/18 0721 metoclopramide HCl 5 mg injection (REGLAN) 5 mg INTRAVENOUS q 12 H Lora Soliz 5 mg at 02/07/18 0831 0.9% NaCl 10 mL 10 mL INTRAVENOUS q 12 H Dionicio (Res) Stevens 10 mL at 02/07/18 0822 0.9% NaCl 20 mL 20 mL INTRAVENOUS PRN Dionicio (Res) Stevens magnesium sulfate in water 2 g in sterile water 50 ml 2 g INTRAVENOUS PRN Maggi (Res) Verg[place]se fentaNYL 50 mcg/mL 25-50 mcg injection (SUBLIMAZE) 25-50 mcg INTRAVENOUS q 2 H PRN Venkat Paniagua 50 mcg at 02/07/18 0819 budesonide 0.5 mg/2 mL 0.5 mg (PULMICORT) 0.5 mg INHALATION BID Dorcas Mike Decoy 0.5 mg at 02/07/18 0722 senna leaf extract 176 mg/5 mL 528 mg 15 mL OROGASTRIC BID Dionicio (Res) Stevens 528 mg at 02/07/18 0830 carboxymethylcellulose sodium 1-2 Drop (CELLUVISC) 1-2 Drop BOTH EYES PRN Venkat Paniagua 2 Drop at 01/26/18 1625 polyvinyl alcohol-povidone 1.4-0.6 % 1 Drop (REFRESH) 1 Drop BOTH EYES QID PRN Paulo (Meter Repair Shop Supervisor) [place] 1 Drop at 01/26/18 1724 heparin 1,000 unit/mL 4,000 Units injection 4,000 Units INTRAVENOUS 3 Times weekly with dialysis Troy Godoy 4,000 Units at 02/03/18 2340 heparin 5,000 Units injection 5,000 Units SUBCUTANEOUS q 12 H Venkat Paniagua 5,000 Units at 02/06/18 2052 dextrose 40 % 15 g 15 g ORAL PRN Jack Regula Or glucagon 1 mg injection (GLUCAGEN) 1 mg INTRAMUSCULAR PRN Jack Regula Or dextrose 50% in water 25 mL syringe 12.5 g INTRAVENOUS PRN Jack Regula Chlorhexidine Gluconate 0.12 % 15 mL (PERIDEX) 15 mL ORAL q 12 H Elder Yu) Kalee 15 mL at 02/07/18 0823 No current Epic-ordered outpatient prescriptions on file. Vitals: BP 112/69 Pulse 102 Temp 37.2 ?C (99 ?F) Resp 26 Ht 172.7 cm (5' 7.99) Wt 87.5 kg (192 lb 14.4 oz) SpO2 100% BMI 29.34 kg/m? BLOOD PRESSURE RANGE: Systolic (24hrs), Av , Min:96 , Max:136 ; Diastolic (24hrs), Av, Min:44, Max:93 24HR INTAKE/OUTPUT: Intake/Output Summary (Last 24 hours) at 02/07/18 1014 Last data filed at 02/07/18 0733 Gross per 24 hour Intake 1325 ml Output 852 ml Net 473 ml Physical exam: Constitutional: NAD Skin: no rash, turgor wnl Heent: Trached. mmm Cardiovascular: S1, S2 normal without m/r/g Respiratory: CTAB Abdomen: +bs, soft, nt, nd Ext: 1+ lower extremity edema Data: Labs: Recent Labs 02/07/18 0900 02/07/18 0620 02/06/18 0556 WBC 8.47 see below 9.62* HB 6.3* see below 6.7* HCT 19.9* see below 21.5* MCV 90.5 see below 91.5 PLT 303 see below 286 Recent Labs 02/07/18 0900 02/06/18 0556 02/05/18 0543 NA 144 141 140 K 4.1 4.2 3.9 CO2 20* 21 23 MG 2.3 2.1 2.0 BUN 100* 83* 70* CREAT 3.65* 3.44* 3.04* CA 7.1* 6.8* 7.0* Assessment and Plan 1. Acute kidney injury on chronic kidney disease stage 3. Baseline SCr is 1.36 mg/dL on 11/14/17. CKD is likely due to nephrosclerosis related to PAD. TERENCE is secondary to ischemic ATN from shock.CVVHDF was stopped 01/31. Off NE gtt. Pt is non oliguric. Last intermittent HD was done on 02/03/18. Good urine output over the past 2 days without significant rise in SCr without dialysis. Pt may be showing some signs of renal recovery. Will hold off on dialysis again today. Recheck renal function in am. ? 2. Shock. Resolved. Initially due to hemorrhagic shock-massive blood loss from ruptured AAA +/- adrenal insufficiency-now off steroid. Currently off NE gtt. On midodrine. ? 3. Ruptured AAA. s/p repair 01/12/18. Management as per vascular surgery. ? 4. Acute hypoxic respiratory failure. Ventilator dependent. Vent management as per pulmonary/CCM. ? 5. Encephalopathy anoxic. Will d/w Dr. Paniagua. Please do not hesitate to contact me at [phone] if there is any question or concern. Rosanna Talbert MD (Shen Lorenzo) PROGRESS Observed: 02/07/2018 Status: COMPLETED Source: [place] 10:02 AM CLINIC OTHER CAMPUS REPOSITORY HNO ID: [id number] Author: Gilbert Jeronimo Service: Vascular Surgery Author Type: Resident Type: Progress Notes Filed: 02/07/2018 10:07 AM Note Text: Attestation signed by Venkat Paniagua at 02/08/2018 6:35 PM No oral change in patient's neurologic status. I examine the patient today when his eyes were wide open they did not track at all. He would not respond by moving his head or doing any of the commands that I ask him to do despite the fact that his eyes were wide open. 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 We are moving towards the fact that the patient may not require any further dialysis and therefore if he does not need a tunneled catheter later this week he would probably be ready for transfer to an long-term acute care facility. Vascular Surgery Progress Note Vascular AND Thoracic Surgery Service Pager: For questions or concerns Mon-Fri 6a-5p please page [phone]. After 5pm and on Weekends and Holidays, please page [phone] if in ICU or [phone] if on RNF. SERVICE DATE: 02/07/2018 Subjective SUBJECTIVE: Yesterday had a Hb level of 6.7, came down to 6.3 this AM. Did not respond to me or follow any commands. Diet: DIET TUBE FEED - CONTIN (NO TRAY) Parenteral Nutrition - Adult Parenteral Nutrition - Adult Objective OBJECTIVE: Vitals: Temp (24hrs), Av.2 ?C (98.9 ?F), Min:36.5 ?C (97.7 ?F), Max:37.7 ?C (99.9 ?F) BP 112/69 Pulse 102 Temp 37.2 ?C (99 ?F) Resp 26 Ht 172.7 cm (5' 7.99) Wt 87.5 kg (192 lb 14.4 oz) SpO2 100% BMI 29.34 kg/m? O2 Therapy: Ventilator IANDO: Date 02/06/18 07 - 02/07/18 0659 02/07/18 07 - 02/08/18 0659 Shift 7598-7148 7652-9526 6990-5706 24 Hour Total 6611-6155 6707-3872 5857-5252 24 Hour Total I N T A K E IV 58 58 NS 0.9% 58 58 TPN/PPN 751 751 TPN 751 751 Irrigants 120 120 Irrigant/Flush Amount In (GI Feed/Drain 01/27/18 Assessment Gastrostomy) 120 120 Gastric Tube 160 236 396 Tube Feed Intake (I/O) (GI Feed/Drain 01/27/18 Assessment Gastrostomy) 160 236 396 Shift Total 4043 796 8270 O U T P U T Urine 251 401 652 50 50 Void (ml) 250 400 650 Urine Incontinence/Not Saved 1 x 2 x 3 x 6 x Urine Not Saved 1 1 2 Tube Output ( Condom Catheter 02/02/18 2200) 50 50 Tubes 0 0 0 350 350 Drain/Tube Output (Drain/Tube 01/19/18 1015 Midline Abdomen) 0 0 0 0 0 Drain/Tube Output (Drain/Tube 02/02/18 0300 Fecal Management System Rectum) 350 350 Output (GI Feed/Drain 01/27/18 Assessment Gastrostomy) 0 0 Stool 50 50 Liquid BM (mL) 50 50 Shift Total 251 451 702 400 400 Weight (kg) 87.5 87.5 87.5 87.5 87.5 87.5 87.5 87.5 MEDICATIONS Current Facility-Administered Medications: Parenteral Nutrition - Adult INTRAVENOUS ONCE TPN (1800 START) NORepinephrine 16 mg in D5W 250 mL (LEVOPHED) 0.6-30 mcg/min INTRAVENOUS CONTINUOUS midodrine (PROAMITINE) tab(s) 15 mg 15 mg PEG q 8 H pantoprazole 40 mg injection (PROTONIX) 40 mg INTRAVENOUS DAILY (6 AM) carboxymethylcellulose sodium 1-2 Drop (CELLUVISC) 1-2 Drop BOTH EYES TID 0.9% NaCl 10 mL 10 mL INTRAVENOUS q 12 H 0.9% NaCl 20 mL 20 mL INTRAVENOUS PRN ipratropium-albuterol 3 mL nebulizer solution (DUONEB) 3 mL INHALATION QID metoclopramide HCl 5 mg injection (REGLAN) 5 mg INTRAVENOUS q 12 H 0.9% NaCl 10 mL 10 mL INTRAVENOUS q 12 H 0.9% NaCl 20 mL 20 mL INTRAVENOUS PRN magnesium sulfate in water 2 g in sterile water 50 ml 2 g INTRAVENOUS PRN fentaNYL 50 mcg/mL 25-50 mcg injection (SUBLIMAZE) 25-50 mcg INTRAVENOUS q 2 H PRN budesonide 0.5 mg/2 mL 0.5 mg (PULMICORT) 0.5 mg INHALATION BID senna leaf extract 176 mg/5 mL 528 mg 15 mL OROGASTRIC BID carboxymethylcellulose sodium 1-2 Drop (CELLUVISC) 1-2 Drop BOTH EYES PRN polyvinyl alcohol-povidone 1.4-0.6 % 1 Drop (REFRESH) 1 Drop BOTH EYES QID PRN heparin 1,000 unit/mL 4,000 Units injection 4,000 Units INTRAVENOUS 3 Times weekly with dialysis heparin 5,000 Units injection 5,000 Units SUBCUTANEOUS q 12 H dextrose 40 % 15 g 15 g ORAL PRN Or glucagon 1 mg injection (GLUCAGEN) 1 mg INTRAMUSCULAR PRN Or dextrose 50% in water 25 mL syringe 12.5 g INTRAVENOUS PRN Chlorhexidine Gluconate 0.12 % 15 mL (PERIDEX) 15 mL ORAL q 12 H Labs: Recent Labs 02/07/18 0900 02/07/18 0620 02/06/18 0556 NA 144 -- 141 K 4.1 -- 4.2 CHLOR 111* -- 109* CO2 20* -- 21 BUN 100* -- 83* CREAT 3.65* -- 3.44* GLUC 147* -- 155* ANION 17* -- 15 CA 7.1* -- 6.8* MG 2.3 -- 2.1 P 5.8* -- 6.1* ALB -- -- 1.1* AST -- -- 104* ALT -- -- 92* ALKPHOS -- -- 333* TBILI -- -- 2.9* WBC 8.47 see below 9.62* HB 6.3* see below 6.7* HCT 19.9* see below 21.5* PLT 303 see below 286 Exam: GENERAL: No distress NEURO: Eyes closed, does not respond to name, does not follow commands HEENT: normocephalic, atraumatic, Trach intact LUNGS: Unlabored breathing O2 Therapy: Ventilator CARDIAC: mildly tachycardic ABDOMEN: Soft, mildly distended, does not react to my exam. VAC and retention sutures intact EXTREMITIES: edema present in BUE, palpable pulses ASSESSMENT AND PLAN: Active Hospital Problems Diagnosis Date Noted - Ruptured abdominal aortic aneurysm (AAA) ([facility]) 01/12/2018 - TERENCE (acute kidney injury) ([facility]) 01/30/2018 - Ileus ([facility]) 01/30/2018 - Acute liver failure without hepatic coma 01/30/2018 - Obesity, Class I, BMI 30-34.9 01/16/2018 - Anoxic encephalopathy ([facility]) 01/13/2018 - DIC (disseminated intravascular coagulation) ([facility]) 01/12/2018 - Acute respiratory failure ([facility]) 01/12/2018 - Cardiac arrest ([facility]) 01/12/2018 - AAA (abdominal aortic aneurysm, ruptured) ([facility]) 01/12/2018 Overview Note: Added automatically from request for surgery [id number] 77 year old male with Ruptured AAA s/p Emergent Repair, takeback washout, repair of serosal tears x2, on 01/12, hemorrhagic shock, acute resp failure with pulm edema, TERENCE, SVT, s/p Third Look Laparotomy and?washout on 01/14, fourth look, washout, vac change on 01/16, Partial fascial closure on 01/19, Fascial closure/Retention Sutures on 01/21, Trach and PEG on 01/27 ? - Trach Vent mgmt per MICU - NPO/TPN, TFs via PEG restarted 02/04, up to 20cc/hr now - transfusing 1u for Hb of 6.3 today 02/07 - good UOP for past , currently no plans for restarting dialysis - Cont [place] --> wound care following for VAC changes - WBC downtrending still - Reglan - LUE PICC - Code Status: family wants to maintain Full Code status - [facility] following for LTAC placement, likely dc next week Assessment and plan discussed with attending: Dr. Paniagua SIGNATURE: Gilbert Jeronimo MD PATIENT NAME: Naveen Akins DATE: February 07, 2018 TIME: 10:06 AM Pager: [phone] IONIZED CALCIUM Collected: 02/07/2018 Status: F Source: [facility] 9:00 AM HEALTH SYSTEM REPOSITORY TYPE CODE TESTS RESULT OUT OF REFERENCE UNITS RANGE LAB CAION(LOINC 4.43-4.93 mg/dL ) Low Ionized 3.99 Calcium LAB PHCAI(LOINC 7.320-7.420 ) pH High 7.441 LAB CAPH(LOINC) 4.36-4.73 mg/dL Low Ionized 4.07 Ca,PH7.4 Performed By: #### IONCA #### [place] [address] HEMOGRAM/DIFF Collected: 02/07/2018 Status: F Source: [facility] 9:00 HEALTH SYSTEM REPOSITORY TYPE CODE TESTS RESULT OUT OF REFERENCE UNITS RANGE LAB WBC(LOINC) 4.23-9.07 thou/cmm WBC 8.47 LAB RBC(LOINC) 4.63-6.08 mil/cmm Low RBC 2.20 LAB HGB(LOINC) 13.7-17.5 g/dL Low Hgb alert 6.3 LAB HCT(LOINC) 40.1-51.0 % Low Hct alert 19.9 LAB MCV(LOINC) 83.2-95.6 fl MCV 90.5 LAB MCH(LOINC) 25.7-32.2 pg MCH 28.6 LAB MCHC(LOINC 32.3-36.5 % ) Low MCHC 31.7 LAB RDW(LOINC) 11.6-14.4 % RDW High 18.4 LAB RDWSD(LOIN 36.1-45.8 fl C) RDW SD High 59.7 LAB PLT(LOINC) 141-365 thou/cmm Platelet 303 LAB MPV(LOINC) 8.7-12.0 fl MPV 11.0 LAB SEG(LOINC) % Seg Neutrophil 77.4 LAB IGRE(LOINC % ) Immature Grans 0.80 LAB LYMPH(LOIN % C) Lymphocyte 15.6 LAB MNO(LOINC) % Monocyte 3.4 LAB EOSIN(LOIN % C) Eosinophil 2.7 LAB BASO(LOINC % ) Basophil 0.1 LAB SEGN(LOINC 1.78-5.38 thou/cmm ) Abs. High Neut (ANC) 6.56 LAB IGAB(LOINC 0.00-0.05 thou/cmm ) Abs High Immature Grans 0.07 LAB LYMN(LOINC 0.84-2.85 thou/cmm ) Abs. Lymph 1.32 LAB MONON(LOIN 0.30-0.82 thou/cmm C) Low Abs. Rincon 0.29 LAB EOSN(LOINC 0.04-0.54 thou/cmm ) Abs. Eosin 0.23 LAB BASON(LOIN 0.01-0.08 thou/cmm C) Abs. Baso 0.01 Performed By: #### [id number] #### [place] [address] MAGNESIUM BLOOD Collected: 02/07/2018 Status: F Source: [facility] 9:00 PENDING SALE TO [facility] REPOSITORY TYPE CODE TESTS RESULT OUT OF REFERENCE UNITS RANGE LAB MAG(LOINC) 1.6-2.6 mg/dL Magnesium Blood 2.3 Performed By: #### MAG #### [place] [address] PHOSPHORUS BLOOD Collected: 02/07/2018 Status: F Source: [facility] 9:00 HEALTH SYSTEM REPOSITORY TYPE CODE TESTS RESULT OUT OF REFERENCE UNITS RANGE LAB PHOS(LOINC 2.5-4.9 mg/dL ) High Phosphorus Blood 5.8 Performed By: #### PHOS #### [place] [address] BASIC PANEL Collected: 02/07/2018 Status: F Source: [facility] 9:[address] [place] [address] SYSTEM REPOSITORY TYPE CODE TESTS RESULT OUT OF REFERENCE UNITS RANGE LAB NA(LOINC) 136-145 mEq/L Sodium Blood 144 LAB K(LOINC) 3.5-5.1 mEq/L Potassium Blood 4.1 LAB CL(LOINC) 98-107 mEq/L Chloride High Blood 111 LAB CO2(LOINC) 21-32 mEq/L Low CO2 Blood 20 LAB GLU(LOINC) 70-99 mg/dL Glucose High Blood 147 LAB BUN(LOINC) 7-18 mg/dL BUN High Blood 100 LAB CREA(LOINC 0.67-1.17 mg/dL ) High Creatinine Blood 3.65 LAB CA(LOINC) 8.5-10.1 mg/dL Low Calcium Blood 7.1 LAB ANGAP(LOIN 8-16 C) Anion High Gap 17 Performed By: #### P8 #### [facility] [address] [address] HEMOGRAM/DIFF Collected: 02/07/2018 Status: F Source: [facility] 6:20 AM HEALTH SYSTEM REPOSITORY TYPE CODE TESTS RESULT OUT OF RANGE REFERENCE UNITS LAB WBC(LOINC) 4.23-9.07 thou/cmm WBC see below Result Comment: DISREGARD RESULTS- SAMPLE INTEGRITY QUESTIONABLE CORRECTED: Previous result = 8.45, verified at 06:54 on 02/07/18. LAB RBC(LOINC) 4.63-6.08 mil/cmm see below RBC Result Comment: DISREGARD RESULTS- SAMPLE INTEGRITY QUESTIONABLE CORRECTED: Previous result = 2.05, verified at 06:54 on 02/07/18. LAB HGB(LOINC) 13.7-17.5 g/dL see below Hgb Result Comment: DISREGARD RESULTS- SAMPLE INTEGRITY QUESTIONABLE CORRECTED: Previous result = 5.8, verified at 06:54 on 02/07/18. LAB HCT(LOINC) 40.1-51.0 % Hct see below Result Comment: DISREGARD RESULTS- SAMPLE INTEGRITY QUESTIONABLE CORRECTED: Previous result = 21.7, verified at 06:54 on 02/07/18. LAB MCV(LOINC) 83.2-95.6 fl MCV see below Result Comment: DISREGARD RESULTS- SAMPLE INTEGRITY QUESTIONABLE CORRECTED: Previous result = 105.9, verified at 06:54 on 02/07/18. LAB MCH(LOINC) 25.7-32.2 pg MCH see below Result Comment: DISREGARD RESULTS- SAMPLE INTEGRITY QUESTIONABLE CORRECTED: Previous result = 28.3, verified at 06:54 on 02/07/18. LAB MCHC(LOINC) 32.3-36.5 % MCHC see below Result Comment: DISREGARD RESULTS- SAMPLE INTEGRITY QUESTIONABLE CORRECTED: Previous result = 26.7, verified at 06:54 on 02/07/18. LAB RDW(LOINC) 11.6-14.4 % RDW see below Result Comment: DISREGARD RESULTS- SAMPLE INTEGRITY QUESTIONABLE CORRECTED: Previous result = 19.0, verified at 06:54 on 02/07/18. LAB RDWSD(LOINC) 36.1-45.8 fl see below RDW SD Result Comment: DISREGARD RESULTS- SAMPLE INTEGRITY QUESTIONABLE CORRECTED: Previous result = 74.5, verified at 06:54 on 02/07/18. LAB PLT(LOINC) 141-365 thou/cmm Platelet see below Result Comment: DISREGARD RESULTS- SAMPLE INTEGRITY QUESTIONABLE CORRECTED: Previous result = 284, verified at 06:54 on 02/07/18. LAB MPV(LOINC) 8.7-12.0 fl MPV see below Result Comment: DISREGARD RESULTS- SAMPLE INTEGRITY QUESTIONABLE CORRECTED: Previous result = 10.9, verified at 06:54 on 02/07/18. LAB SEG(LOINC) % Seg Neutrophil see below Result Comment: DISREGARD RESULTS- SAMPLE INTEGRITY QUESTIONABLE CORRECTED: Previous result = 78.5, verified at 06:54 on 02/07/18. LAB IGRE(LOINC) % Immature Grans see below Result Comment: DISREGARD RESULTS- SAMPLE INTEGRITY QUESTIONABLE CORRECTED: Previous result = 0.90, verified at 06:54 on 02/07/18. LAB LYMPH(LOINC) % Lymphocyte see below Result Comment: DISREGARD RESULTS- SAMPLE INTEGRITY QUESTIONABLE CORRECTED: Previous result = 14.0, verified at 06:54 on 02/07/18. LAB MNO(LOINC) % Monocyte see below Result Comment: DISREGARD RESULTS- SAMPLE INTEGRITY QUESTIONABLE CORRECTED: Previous result = 3.8, verified at 06:54 on 02/07/18. LAB EOSIN(LOINC) % Eosinophil see below Result Comment: DISREGARD RESULTS- SAMPLE INTEGRITY QUESTIONABLE CORRECTED: Previous result = 2.8, verified at 06:54 on 02/07/18. LAB BASO(LOINC) % Basophil see below Result Comment: DISREGARD RESULTS- SAMPLE INTEGRITY QUESTIONABLE CORRECTED: Previous result = 0.0, verified at 06:54 on 02/07/18. LAB SEGN(LOINC) 1.78-5.38 thou/cmm Abs. see Neut (ANC) below Result Comment: DISREGARD RESULTS- SAMPLE INTEGRITY QUESTIONABLE CORRECTED: Previous result = 6.63, verified at 06:54 on 02/07/18. LAB IGAB(LOINC) 0.00-0.05 thou/cmm Abs Immature see Grans below Result Comment: DISREGARD RESULTS- SAMPLE INTEGRITY QUESTIONABLE CORRECTED: Previous result = 0.08, verified at 06:54 on 02/07/18. LAB LYMN(LOINC) 0.84-2.85 thou/cmm Abs. see Lymph below Result Comment: DISREGARD RESULTS- SAMPLE INTEGRITY QUESTIONABLE CORRECTED: Previous result = 1.18, verified at 06:54 on 02/07/18. LAB MONON(LOINC) 0.30-0.82 thou/cmm see Abs. Rincon below Result Comment: DISREGARD RESULTS- SAMPLE INTEGRITY QUESTIONABLE CORRECTED: Previous result = 0.32, verified at 06:54 on 02/07/18. LAB EOSN(LOINC) 0.04-0.54 thou/cmm Abs. see Eosin below Result Comment: DISREGARD RESULTS- SAMPLE INTEGRITY QUESTIONABLE CORRECTED: Previous result = 0.24, verified at 06:54 on 02/07/18. LAB BASON(LOINC) 0.01-0.08 thou/cmm see Abs. Baso below Result Comment: DISREGARD RESULTS- SAMPLE INTEGRITY QUESTIONABLE CORRECTED: Previous result = 0.00, verified at 06:54 on 02/07/18. Performed By: #### [id number] #### [facility] [address] [address] IONIZED CALCIUM Collected: 02/07/2018 Status: F Source: [facility] 6:20 AM HEALTH SYSTEM REPOSITORY TYPE CODE TESTS RESULT OUT OF REFERENCE UNITS RANGE LAB CAION(LOINC 4.43-4.93 mg/dL ) Ionized see below Calcium Result Comment: DISREGARD RESULTS- SAMPLE INTEGRITY QUESTIONABLE CORRECTED: Previous result = 3.73, verified at 07:53 on 02/07/18. LAB PHCAI(LOINC) 7.320-7.420 see below pH Result Comment: DISREGARD RESULTS- SAMPLE INTEGRITY QUESTIONABLE CORRECTED: Previous result = 7.191 RESULT RECHECKED, verified at 07:53 on 02/07/18. LAB CAPH(LOINC) 4.36-4.73 mg/dL Ionized See Ca,PH7.4 Below Result Comment: DISREGARD RESULTS- SAMPLE INTEGRITY QUESTIONABLE CORRECTED: Previous result = See Below pH less than 7.2. Unable to report ionized calcium at pH 7.4, verified at 07:54 on 02/07/18. Performed By: #### IONCA #### [facility] [address] [address] ALLIED HEALTH Observed: 02/06/2018 Status: COMPLETED Source: [place] 9:33 PM CLINIC OTHER CAMPUS REPOSITORY HNO ID: [id number] Author: Chaplain Perales (Chaplain) Service: Spiritual Care Author Type: Envelope Stamping Machine Operator Type: Allied Health Filed: 02/06/2018 9:37 PM Note Text: SPIRITUALCARE Spiritual Care Visit- Brief Note Name: Naveen Akins Date: February 06, 2018 Notes: SPIRITUALCARE Spiritual Care Visit- Brief Note Name: Naveen Akins Date: February 06, 2018 Notes: Met pt's janice malachi again in 3rd wtg. Chatted awhile and asked if getting enough food/rest. Fam said they all are hanging in there and praying for a miracle for dad. I later went to pt's room and prayed over pt.at 7:55pm Envelope Stamping Machine Operator Signature: Chaplain Diaz To contact the Spiritual Care Department: Please call [phone] or Page the On-Call Envelope Stamping Machine Operator at pager [phone] Thank you for the opportunity to be of service. This is an electronically created document. IF PRINTED, PLEASE DO NOT REMOVE FROM THE CHART OR MODIFY PRINTED COPY. Envelope Stamping Machine Operator Signature: Chaplain Diaz To contact the Spiritual Care Department: Please call [phone] or Page the On-Call Envelope Stamping Machine Operator at pager [phone] Thank you for the opportunity to be of service. This is an electronically created document. IF PRINTED, PLEASE DO NOT REMOVE FROM THE CHART OR MODIFY PRINTED COPY. PROGRESS Observed: 02/06/2018 Status: COMPLETED Source: [place] 3:16 PM [facility] OTHER CAMPUS REPOSITORY O ID: [id number] Author: Renate Ole Service: Nephrology Author Type: Physician Type: Progress Notes Filed: 02/06/2018 3:21 PM Note Text: Nephrology Progress Note Following for TERENCE. Pt is trached. Remains on ventilator. On FIO2 30%. Failed vent wean remains Off pressors Pt is unresponsive Current Inpatient Medications: Current Facility-Administered Medications Ordered in Epic: Parenteral Nutrition - Adult INTRAVENOUS ONCE TPN (1800 START) H Edwin Dudley Parenteral Nutrition - Adult INTRAVENOUS ONCE TPN (1800 START) H Edwin Dudley Last Rate: 62.5 mL/hr at 02/06/18 0800 NORepinephrine 16 mg in D5W 250 mL (LEVOPHED) 0.6-30 mcg/min INTRAVENOUS CONTINUOUS Issac Contreras Stopped at 02/03/18 0430 midodrine (PROAMITINE) tab(s) 15 mg 15 mg PEG q 8 H Lora Soliz 15 mg at 02/06/18 0552 pantoprazole 40 mg injection (PROTONIX) 40 mg INTRAVENOUS DAILY (6 AM) Lora Soliz 40 mg at 02/06/18 0552 carboxymethylcellulose sodium 1-2 Drop (CELLUVISC) 1-2 Drop BOTH EYES TID Lora Soliz 2 Drop at 02/06/18 1250 0.9% NaCl 10 mL 10 mL INTRAVENOUS q 12 H Lora Soliz 10 mL at 02/06/18 1030 0.9% NaCl 20 mL 20 mL INTRAVENOUS PRN Lora Soliz ipratropium-albuterol 3 mL nebulizer solution (DUONEB) 3 mL INHALATION QID Lora Soliz 3 mL at 02/06/18 1148 metoclopramide HCl 5 mg injection (REGLAN) 5 mg INTRAVENOUS q 12 H Lora Soliz 5 mg at 02/06/18 1030 0.9% NaCl 10 mL 10 mL INTRAVENOUS q 12 H Dionicio (Res) Stevens 10 mL at 02/06/18 0900 0.9% NaCl 20 mL 20 mL INTRAVENOUS PRN Dionicio (Res) Stevens magnesium sulfate in water 2 g in sterile water 50 ml 2 g INTRAVENOUS PRN Maggi (Res) Verjenniferese fentaNYL 50 mcg/mL 25-50 mcg injection (SUBLIMAZE) 25-50 mcg INTRAVENOUS q 2 H PRN Venkat Paniagua 50 mcg at 02/03/18 1149 budesonide 0.5 mg/2 mL 0.5 mg (PULMICORT) 0.5 mg INHALATION BID Dorcas Mike Decoy 0.5 mg at 02/06/18 0758 senna leaf extract 176 mg/5 mL 528 mg 15 mL OROGASTRIC BID Dionicio (Res) Stevens 528 mg at 02/04/18 2113 carboxymethylcellulose sodium 1-2 Drop (CELLUVISC) 1-2 Drop BOTH EYES PRN Venkat Paniagua 2 Drop at 01/26/18 1625 polyvinyl alcohol-povidone 1.4-0.6 % 1 Drop (REFRESH) 1 Drop BOTH EYES QID PRN Paulo (Meter Repair Shop Supervisor) Hudock 1 Drop at 01/26/18 1724 heparin 1,000 unit/mL 4,000 Units injection 4,000 Units INTRAVENOUS 3 Times weekly with dialysis Troy Godoy 4,000 Units at 02/03/18 2340 heparin 5,000 Units injection 5,000 Units SUBCUTANEOUS q 12 H Venkat Paniagua 5,000 Units at 02/06/18 1030 dextrose 40 % 15 g 15 g ORAL PRN Jack Regula Or glucagon 1 mg injection (GLUCAGEN) 1 mg INTRAMUSCULAR PRN Jack Regula Or dextrose 50% in water 25 mL syringe 12.5 g INTRAVENOUS PRN Jack Regula Chlorhexidine Gluconate 0.12 % 15 mL (PERIDEX) 15 mL ORAL q 12 H Elder Yu) Kalee 15 mL at 02/06/18 1028 No current Epic-ordered outpatient prescriptions on file. Vitals: BP 110/57 Pulse 104 Temp 37 ?C (98.6 ?F) Resp 28 Ht 172.7 cm (5' 7.99) Wt 87.5 kg (192 lb 14.4 oz) SpO2 99% BMI 29.34 kg/m? BLOOD PRESSURE RANGE: Systolic (24hrs), Av , Min:108 , Max:108 ; Diastolic (24hrs), Av, Min:53, Max:53 24HR INTAKE/OUTPUT: Intake/Output Summary (Last 24 hours) at 02/06/18 1516 Last data filed at 02/06/18 0800 Gross per 24 hour Intake 1156 ml Output 1650 ml Net -494 ml Physical exam: Constitutional spontaneous neck movements Skin: no rash, turgor wnl Heent: Trached Neck: no bruits or jvd noted Cardiovascular: ?S1, S2 normal without m/r/g Respiratory: Coarse breath sound bilaterally Abdomen: ?+bs, soft, nt, nd Ext: +1 upper> lower extremity edema Data: Labs: Recent Labs 02/06/18 0556 02/05/18 0543 02/04/18 0540 WBC 9.62* 10.86* 15.02* HB 6.7* 7.2* 7.2* HCT 21.5* 22.6* 22.4* MCV 91.5 90.0 90.0 PLT 286 264 215 Recent Labs 02/06/18 0556 02/05/18 0543 02/04/18 0540 NA 141 140 139 K 4.2 3.9 3.5 CO2 21 23 25 MG 2.1 2.0 1.7 BUN 83* 70* 53* CREAT 3.44* 3.04* 2.29* CA 6.8* 7.0* 6.7* Assessment and Plan 1. Acute kidney injury on chronic kidney disease stage 3. Baseline SCr is 1.36 mg/dL on 11/14/17. CKD is likely due to nephrosclerosis related to PAD. TERENCE is secondary to ischemic ATN from shock.CVVHDF was stopped 01/31. Off NE gtt. Pt is non oliguric. HD done yesterday -HD catheter removed due to source of infection on 02/03-line holiday -cont to watch for renal recovery UOP is good and improved No need for HD today Cr is rising 2.3 to 3.0 to 3.4 Suspect he may recover renal function however not sure he should really be re-initiated on HD given the severe anoxic brain injury. Reassess daily ? 2. Shock. resolved Initially due to hemorrhagic shock-massive blood loss from ruptured AAA +/- adrenal insufficiency. Currently off NE gtt. On hydrocortisone. ? 3. Ruptured AAA. s/p repair 01/12/18. Management as per vascular surgery. ? 4. Acute hypoxic respiratory failure. Ventilator dependent. Vent management as per pulmonary/CCM. ? 5. Severe Encephalopathy anoxic-poor prognosis ? Renal team will continue to follow Renate Handy DO PROGRESS Observed: 02/06/2018 Status: COMPLETED Source: [place] 3:11 PM CLINIC OTHER CAMPUS REPOSITORY HNO ID: [id number] Author: Paulo Lovelace (Cns) Service: Critical Care Author Type: Nurse Specialist Type: Progress Notes Filed: 02/06/2018 3:17 PM Note Text: MICU - PROGRESS NOTE SERVICE DATE: 02/06/2018 SERVICE TIME: 3:12 PM Admission Date: 01/12/2018 AGE: [age] year old LOS: 25 days Subjective REASON FOR ICU ADMISSION: Respiratory Failure Objective PROBLEMS: ACTIVE PROBLEM LIST Gallstone Pancreatitis Ruptured Abdominal Aortic Aneurysm (Aaa) (Hcc) Dic (Disseminated Intravascular Coagulation) (Hcc) Acute Respiratory Failure (Hcc) Cardiac Arrest (Hcc) Hypokalemia Hypomagnesemia Hypophosphatemia Anoxic Encephalopathy (Hcc) Aaa (Abdominal Aortic Aneurysm, Ruptured) (Hcc) Obesity, Class I, Bmi 30-34.9 Terence (Acute Kidney Injury) (Hcc) Ileus (Hcc) Acute Liver Failure Without Hepatic Coma PAST MEDICAL HISTORY Diagnosis Date - DIC (disseminated intravascular coagulation) (HCC) 01/12/2018 PAST SURGICAL HISTORY Procedure Laterality Date - LAP CHOLECYSTECT/CHOLANGIOGRAPHY 05-28-09 - PICC LINE INSERTION (PICC TEAM) (AK) 01/31/2018 - PICC LINE INSERTION (PICC TEAM) (AK) 02/01/2018 - REPAIR UMBILICAL NATAN,5+Y/O,REDUC 05-28-09 Social History Marital status: Spouse name: Shelly Years of education: 11 Number of children: 4 Occupational History 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 BP 110/57 Pulse 104 Temp (Src) 98.6 (Core) Resp 28 Ht 5' 7.992 (1.73m) Wt 192 lb 14.4 oz (87.5kg) SpO2 99% BMI 29.34 kg/(m2). Temp (24hrs), Av.4 ?C (99.3 ?F), Min:36.9 ?C (98.4 ?F), Max:38.3 ?C (100.9 ?F) NET FLUID BALANCE Intake/Output Summary (Last 24 hours) at 02/06/18 1512 Last data filed at 02/06/18 0800 Gross per 24 hour Intake 1156 ml Output 1650 ml Net -494 ml MEDICATIONS Current Facility-Administered Medications: Parenteral Nutrition - Adult INTRAVENOUS ONCE TPN (1800 START) Parenteral Nutrition - Adult INTRAVENOUS ONCE TPN (1800 START) NORepinephrine 16 mg in D5W 250 mL (LEVOPHED) 0.6-30 mcg/min INTRAVENOUS CONTINUOUS midodrine (PROAMITINE) tab(s) 15 mg 15 mg PEG q 8 H pantoprazole 40 mg injection (PROTONIX) 40 mg INTRAVENOUS DAILY (6 AM) carboxymethylcellulose sodium 1-2 Drop (CELLUVISC) 1-2 Drop BOTH EYES TID 0.9% NaCl 10 mL 10 mL INTRAVENOUS q 12 H 0.9% NaCl 20 mL 20 mL INTRAVENOUS PRN ipratropium-albuterol 3 mL nebulizer solution (DUONEB) 3 mL INHALATION QID metoclopramide HCl 5 mg injection (REGLAN) 5 mg INTRAVENOUS q 12 H 0.9% NaCl 10 mL 10 mL INTRAVENOUS q 12 H 0.9% NaCl 20 mL 20 mL INTRAVENOUS PRN magnesium sulfate in water 2 g in sterile water 50 ml 2 g INTRAVENOUS PRN fentaNYL 50 mcg/mL 25-50 mcg injection (SUBLIMAZE) 25-50 mcg INTRAVENOUS q 2 H PRN budesonide 0.5 mg/2 mL 0.5 mg (PULMICORT) 0.5 mg INHALATION BID senna leaf extract 176 mg/5 mL 528 mg 15 mL OROGASTRIC BID carboxymethylcellulose sodium 1-2 Drop (CELLUVISC) 1-2 Drop BOTH EYES PRN polyvinyl alcohol-povidone 1.4-0.6 % 1 Drop (REFRESH) 1 Drop BOTH EYES QID PRN heparin 1,000 unit/mL 4,000 Units injection 4,000 Units INTRAVENOUS 3 Times weekly with dialysis heparin 5,000 Units injection 5,000 Units SUBCUTANEOUS q 12 H dextrose 40 % 15 g 15 g ORAL PRN Or glucagon 1 mg injection (GLUCAGEN) 1 mg INTRAMUSCULAR PRN Or dextrose 50% in water 25 mL syringe 12.5 g INTRAVENOUS PRN Chlorhexidine Gluconate 0.12 % 15 mL (PERIDEX) 15 mL ORAL q 12 H Lines, Drains, and Airways Line Central Line Double Lumen 02/01/18 0815 Peripherally Inserted (PICC) Left Arm 5 days Drain Drain/Tube 01/19/18 1015 Midline Abdomen 18 days GI Feed/Drain 01/27/18 Assessment Gastrostomy 10 days Drain/Tube 02/02/18 0300 Fecal Management System Rectum 4 days Condom Catheter 02/02/18 2200 3 days Airway Airway Tracheostomy 01/27/18 10 days PHYSICAL EXAM PERFORMED: Cardiovascular: Regular rhythm Respiratory: Rhonchi bilat %FIO2 Min: 30 Max: 30 Abdomen: Distended Extremities: Edema- Yes Anasarca but improving Neurologic: Unresponsive Respiratory/Nursing Documentation: O2 Therapy: Ventilator (02/06/181123) Invasive Ventilator Mode: Continuous Mandatory Ventilation (02/06/181123) Set Ventilator Respiratory Rate (BPM): 16 (02/06/181123) Total Respiratory Rate (BPM): 32 (02/06/181123) Tidal Volume Set (mL): 500 (02/06/181123) Exhaled Tidal Volume (mL): 520 (02/06/181123) Minute Volume (L): 16.4 (02/06/181123) Peak Inspiratory Pressure (cm H2O): 18 (02/06/181123) PEEP/CPAP (cm H2O): 5 (02/06/181123) HEMODYNAMIC DATA: Reviewed NUTRITION: Enteral Feeds: Yes TPN DATA: Diagnostic tests reviewed for today's visit, films/specimens were personally reviewed by me: Most recent labs and imaging results. LABS: Recent Labs 02/06/18 0556 WBC 9.62* RBC 2.35* HB 6.7* HCT 21.5* MCV 91.5 PLT 286 GLUC 155* BUN 83* CREAT 3.44* NA 141 K 4.2 CHLOR 109* CO2 21 TPROT 5.3* ALB 1.1* CA 6.8* ALKPHOS 333* TBILI 2.9* AST 104* ALT 92* MG 2.1 ABG: Invalid input(s): [id number] Assessment/Plan IMPRESSION: 1.Acute hypoxic respiratory failure/ARDS/Bilat pleuaral effusions-remains intubated on 40% FIO2-periodic Seth Smith respirations 2. Ruptured AAA ?Sp repair-Wound closed vac in place 3.SP cardiac arrest 4.Shock-Levophed support is off 5. Pt is nonresponsive-even to noxious stimuli-Encephalopathy 6.Thrombocytopenia improving-platelet 286,000 7.Nutritional support-TPNtube feedings increased to 20 ml/hr 8.Sinus tachycardia-SVT resolved-frequent PACs this AM 9.TERENCE on CKD-improving 10. Fentanyl drip is off 11. Ileus/gastroparesis-resolving 12. Acute blood loss anemia-Hgb is 6.7 GM 13.Hyperlipidemia improving 14.Trach /PEG 15 Afebrile 16. Slight worsening of leukocytosis 17.Select soon Critical Care Documentation: The patient has the following organ/system impairment(s): Respiratory failure (with Hypoxemia) This patient has a high probability of sudden, clinically significant deterioration, which requires the highest level of physician preparedness to intervene urgently. I managed/supervised life or organ supporting interventions that required frequent physician assessment. I devoted my full attention to the direct care of this patient for the amount of time indicated below. Time I spent with family or surrogate(s) is included only if the patient was incapable of providing the necessary information or participating in medical decision making. Time devoted to teaching is not included. Discussed with staff/patient/family Time spent providing critical care services: 40 minutes excluding procedures. SIGNATURE: Paulo Lovelace APRN.MAINTENANCE TEAM MEMBER PATIENT NAME: Naveen Akins DATE: February 06, 2018 TIME: 3:12 PM PROGRESS Observed: 02/06/2018 Status: COMPLETED Source: [place] 9:36 AM [facility] OTHER CAMPUS REPOSITORY [facility] ID: [id number] Author: Shyam Degroot Service: Critical Care Author Type: Physician Type: Progress Notes Filed: 02/06/2018 9:57 AM Note Text: MICU - PROGRESS NOTE SERVICE DATE: 02/06/2018 SERVICE TIME: 9:46 AM Admission Date: 01/12/2018 AGE: [age] year old LOS: 25 days Subjective Unresponsive. Objective PROBLEMS: ACTIVE PROBLEM LIST Gallstone Pancreatitis Ruptured Abdominal Aortic Aneurysm (Aaa) (Hcc) Dic (Disseminated Intravascular Coagulation) (Hcc) Acute Respiratory Failure (Hcc) Cardiac Arrest (Hcc) Hypokalemia Hypomagnesemia Hypophosphatemia Anoxic Encephalopathy (Hcc) Aaa (Abdominal Aortic Aneurysm, Ruptured) (Hcc) Obesity, Class I, Bmi 30-34.9 Terence (Acute Kidney Injury) (Hcc) Ileus (Hcc) Acute Liver Failure Without Hepatic Coma PAST MEDICAL HISTORY Diagnosis Date - DIC (disseminated intravascular coagulation) (HCC) 01/12/2018 PAST SURGICAL HISTORY Procedure Laterality Date - LAP CHOLECYSTECT/CHOLANGIOGRAPHY 05-28-09 - PICC LINE INSERTION (PICC TEAM) (AK) 01/31/2018 - PICC LINE INSERTION (PICC TEAM) (AK) 02/01/2018 - REPAIR UMBILICAL NATAN,5+Y/O,REDUC 05-28-09 Social History Marital status: Spouse name: Shelly Years of education: 11 Number of children: 4 Occupational 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 BP 117/63 Pulse 104 Temp (Src) 99.1 (Core) Resp 22 Ht 5' 7.992 (1.73m) Wt 192 lb 14.4 oz (87.5kg) SpO2 100% BMI 29.34 kg/(m2). Temp (24hrs), Av.4 ?C (99.4 ?F), Min:36.5 ?C (97.7 ?F), Max:38.3 ?C (100.9 ?F) NET FLUID BALANCE Intake/Output Summary (Last 24 hours) at 02/06/18 0946 Last data filed at 02/06/18 0800 Gross per 24 hour Intake 1156 ml Output 1650 ml Net -494 ml MEDICATIONS Current Facility-Administered Medications: Parenteral Nutrition - Adult INTRAVENOUS ONCE TPN (1800 START) NORepinephrine 16 mg in D5W 250 mL (LEVOPHED) 0.6-30 mcg/min INTRAVENOUS CONTINUOUS midodrine (PROAMITINE) tab(s) 15 mg 15 mg PEG q 8 H pantoprazole 40 mg injection (PROTONIX) 40 mg INTRAVENOUS DAILY (6 AM) carboxymethylcellulose sodium 1-2 Drop (CELLUVISC) 1-2 Drop BOTH EYES TID 0.9% NaCl 10 mL 10 mL INTRAVENOUS q 12 H 0.9% NaCl 20 mL 20 mL INTRAVENOUS PRN ipratropium-albuterol 3 mL nebulizer solution (DUONEB) 3 mL INHALATION QID metoclopramide HCl 5 mg injection (REGLAN) 5 mg INTRAVENOUS q 12 H 0.9% NaCl 10 mL 10 mL INTRAVENOUS q 12 H 0.9% NaCl 20 mL 20 mL INTRAVENOUS PRN magnesium sulfate in water 2 g in sterile water 50 ml 2 g INTRAVENOUS PRN fentaNYL 50 mcg/mL 25-50 mcg injection (SUBLIMAZE) 25-50 mcg INTRAVENOUS q 2 H PRN budesonide 0.5 mg/2 mL 0.5 mg (PULMICORT) 0.5 mg INHALATION BID senna leaf extract 176 mg/5 mL 528 mg 15 mL OROGASTRIC BID carboxymethylcellulose sodium 1-2 Drop (CELLUVISC) 1-2 Drop BOTH EYES PRN polyvinyl alcohol-povidone 1.4-0.6 % 1 Drop (REFRESH) 1 Drop BOTH EYES QID PRN heparin 1,000 unit/mL 4,000 Units injection 4,000 Units INTRAVENOUS 3 Times weekly with dialysis heparin 5,000 Units injection 5,000 Units SUBCUTANEOUS q 12 H dextrose 40 % 15 g 15 g ORAL PRN Or glucagon 1 mg injection (GLUCAGEN) 1 mg INTRAMUSCULAR PRN Or dextrose 50% in water 25 mL syringe 12.5 g INTRAVENOUS PRN Chlorhexidine Gluconate 0.12 % 15 mL (PERIDEX) 15 mL ORAL q 12 H Lines, Drains, and Airways Line Central Line Double Lumen 02/01/18 0815 Peripherally Inserted (PICC) Left Arm 5 days Drain Drain/Tube 01/19/18 1015 Midline Abdomen 17 days GI Feed/Drain 01/27/18 Assessment Gastrostomy 10 days Drain/Tube 02/02/18 0300 Fecal Management System Rectum 4 days Condom Catheter 02/02/18 2200 3 days Airway Airway Tracheostomy 01/27/18 10 days PHYSICAL EXAM PERFORMED: General: Cardiovascular: Regular rhythm Respiratory: Clear to auscultation Abdomen: Soft Extremities: Edema- Yes Neurologic: Comatose Respiratory/Nursing Documentation: O2 Therapy: Ventilator (02/06/18 08) Invasive Ventilator Mode: Continuous Mandatory Ventilation (02/06/18750) Set Ventilator Respiratory Rate (BPM): 16 (02/06/18799) Total Respiratory Rate (BPM): 32 (02/06/18750) Tidal Volume Set (mL): 500 (02/06/18799) Exhaled Tidal Volume (mL): 480 (02/06/18750) Minute Volume (L): 15.2 (02/06/18750) Peak Inspiratory Pressure (cm H2O): 18 (02/06/18750) PEEP/CPAP (cm H2O): 5 (02/06/18799) HEMODYNAMIC DATA: Reviewed NUTRITION: Enteral Feeds: Yes- Tube Feeds- and TPN DATA: Diagnostic tests reviewed for today's visit, films/specimens were personally reviewed by me: Most recent labs and imaging results. LABS: Recent Labs 02/06/18 0556 WBC 9.62* RBC 2.35* HB 6.7* HCT 21.5* MCV 91.5 PLT 286 GLUC 155* BUN 83* CREAT 3.44* NA 141 K 4.2 CHLOR 109* CO2 21 TPROT 5.3* ALB 1.1* CA 6.8* ALKPHOS 333* TBILI 2.9* AST 104* ALT 92* MG 2.1 ABG: Invalid input(s): [id number] Assessment/Plan IMPRESSION: Critical Care Documentation: The patient has the following organ/system impairment(s): Respiratory failure (Acute) AAA rupture and multipe re-ops; wound vac Autonomic insufficiency TERENCE; was on CRRT Resolving ileus Rx HCAP Hepatic insufficiency Anoxic encephalopathy Anemia-multifactorial MMP CRITICAL CARE PLAN: See orders Advance TFs and cont TPN Guarded outlook LTAC ultimately This patient has a high probability of sudden, clinically significant deterioration, which requires the highest level of physician preparedness to intervene urgently. I managed/supervised life or organ supporting interventions that required frequent physician assessment. I devoted my full attention to the direct care of this patient for the amount of time indicated below. Time I spent with family or surrogate(s) is included only if the patient was incapable of providing the necessary information or participating in medical decision making. Time devoted to teaching is not included. Discussed with staff/patient/family Time spent providing critical care services: 30 minutes excluding procedures. SIGNATURE: Shyam Degroot MD PATIENT NAME: Naveen Akins DATE: February 06, 2018 TIME: 9:46 AM PROGRESS Observed: 02/06/2018 Status: COMPLETED Source: [place] 8:27 AM [facility] OTHER CAMPUS REPOSITORY [facility] ID: [id number] Author: Braxton Sloan MD Service: Vascular Surgery Author Type: Resident Type: Progress Notes Filed: 02/06/2018 8:31 AM Note Text: Attestation signed by Venkat Paniagua at 02/07/2018 12:26 PM patient status today are that his hemoglobin is trending downward and if this drops below 7 i do think that he would benefit from transfusion. in addition to this the patient does seem to be making reasonable urine and at this point in time his creatinine may be leveling off. with this being the case i think most likely the plan should be to continue observation and not replace a dialysis catheter in less dialysis becomes necessary again. this certainly improves our ability to potentially place a tunneled dialysis catheter as he will have sites that have been less recently used. 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 he does not have any purposeful movement although the family states that they felt twice once on tuesday and once on tuesday they noticed some purposeful movement when they were in the room talking with him. this has not been by enlarged reassessment of the medical staff. my personal assessment is that his neurologic status is unchanged really only responding at this point in time to noxious stimuli. i discussed with the family that probably we will towards the end of the week be moving him to a long-term acute care facility. we will need to make a decision as to whether we need to get a tunneled dialysis catheter placed and will need nephrology's input on that as the week progresses. i also discussed with the family my thoughts that his neurologic prognosis is extremely poor and i do urge them to see if they can find a copy of the living will that he apparently has. they do not seem to have any independent discussions of what he would or would not want at this point however i do discussed with him the fact that my impression would be that the patient's code status should be changed to dnr comfort care arrest as this would make the most sense. i asked them to discuss this among family members to see if they could come to a conclusion that this is what we would want to do if he underwent a cardiac arrest. Vascular Surgery Progress Note Vascular AND Thoracic Surgery Service Pager: For questions or concerns Mon-Tue 6a-5p please page [phone]. After 5pm and on Weekends and Holidays, please page [phone] if in ICU or [phone] if on RNF. SERVICE DATE: 02/06/2018 Subjective SUBJECTIVE: NAEON. Pt remains unresponsive. Diet: DIET TUBE FEED - CONTIN (NO TRAY) Parenteral Nutrition - Adult Objective OBJECTIVE: Vitals: Temp (24hrs), Av.3 ?C (99.1 ?F), Min:36.5 ?C (97.7 ?F), Max:38.3 ?C (100.9 ?F) BP 102/62 Pulse 100 Temp 37.3 ?C (99.1 ?F) Resp 27 Ht 172.7 cm (5' 7.99) Wt 87.5 kg (192 lb 14.4 oz) SpO2 100% BMI 29.34 kg/m? O2 Therapy: Ventilator IANDO: Date 02/05/18699 - 02/06/18 0659 02/06/18 07 - 02/07/18 0659 Shift 3043-7120 7826-9337 4358-7214 24 Hour Total [id number] 7343-8148 9599-3179 24 Hour Total I N T A K E TPN/PPN 778 778 TPN 778 778 Irrigants 60 80 140 Irrigant/Flush Amount In (GI Feed/Drain 01/27/18 Assessment Gastrostomy) 60 80 140 Gastric Tube 119 119 238 Tube Feed Intake (I/O) (GI Feed/Drain 01/27/18 Assessment Gastrostomy) 119 119 238 Shift Total 646 797 6895 O U T P U T Urine 605 567 5152 Urine Incontinence/Not Saved 1 x 1 x Tube Output ( Condom Catheter 02/02/18 2200) 412 859 5753 Tubes 0 0 0 0 Drain/Tube Output (Drain/Tube 01/19/18 1015 Midline Abdomen) 0 0 0 0 Stool 300 50 350 Liquid BM (mL) 300 50 350 Shift Total 0 319 433 7627 0 0 Weight (kg) 87.5 87.5 87.5 87.5 87.5 87.5 87.5 87.5 MEDICATIONS Current Facility-Administered Medications: Parenteral Nutrition - Adult INTRAVENOUS ONCE TPN (1800 START) NORepinephrine 16 mg in D5W 250 mL (LEVOPHED) 0.6-30 mcg/min INTRAVENOUS CONTINUOUS midodrine (PROAMITINE) tab(s) 15 mg 15 mg PEG q 8 H pantoprazole 40 mg injection (PROTONIX) 40 mg INTRAVENOUS DAILY (6 AM) carboxymethylcellulose sodium 1-2 Drop (CELLUVISC) 1-2 Drop BOTH EYES TID 0.9% NaCl 10 mL 10 mL INTRAVENOUS q 12 H 0.9% NaCl 20 mL 20 mL INTRAVENOUS PRN ipratropium-albuterol 3 mL nebulizer solution (DUONEB) 3 mL INHALATION QID metoclopramide HCl 5 mg injection (REGLAN) 5 mg INTRAVENOUS q 12 H 0.9% NaCl 10 mL 10 mL INTRAVENOUS q 12 H 0.9% NaCl 20 mL 20 mL INTRAVENOUS PRN magnesium sulfate in water 2 g in sterile water 50 ml 2 g INTRAVENOUS PRN fentaNYL 50 mcg/mL 25-50 mcg injection (SUBLIMAZE) 25-50 mcg INTRAVENOUS q 2 H PRN budesonide 0.5 mg/2 mL 0.5 mg (PULMICORT) 0.5 mg INHALATION BID senna leaf extract 176 mg/5 mL 528 mg 15 mL OROGASTRIC BID carboxymethylcellulose sodium 1-2 Drop (CELLUVISC) 1-2 Drop BOTH EYES PRN polyvinyl alcohol-povidone 1.4-0.6 % 1 Drop (REFRESH) 1 Drop BOTH EYES QID PRN heparin 1,000 unit/mL 4,000 Units injection 4,000 Units INTRAVENOUS 3 Times weekly with dialysis heparin 5,000 Units injection 5,000 Units SUBCUTANEOUS q 12 H dextrose 40 % 15 g 15 g ORAL PRN Or glucagon 1 mg injection (GLUCAGEN) 1 mg INTRAMUSCULAR PRN Or dextrose 50% in water 25 mL syringe 12.5 g INTRAVENOUS PRN Chlorhexidine Gluconate 0.12 % 15 mL (PERIDEX) 15 mL ORAL q 12 H Labs: Recent Labs 02/06/18 0556 02/05/18 0543 NA 141 140 K 4.2 3.9 CHLOR 109* 106 CO2 21 23 BUN 83* 70* CREAT 3.44* 3.04* GLUC 155* 109* ANION 15 15 CA 6.8* 7.0* MG 2.1 2.0 P 6.1* 4.5 ALB 1.1* -- AST 104* -- ALT 92* -- ALKPHOS 333* -- TBILI 2.9* -- WBC 9.62* 10.86* HB 6.7* 7.2* HCT 21.5* 22.6* PLT 286 264 Exam: GENERAL: No distress NEURO: Eyes closed, does not respond to name, does not follow commands HEENT: normocephalic, atraumatic, Trach intact LUNGS: Unlabored breathing O2 Therapy: Ventilator CARDIAC: AFib, intermittently tachycardic up to 103 ABDOMEN: Soft, non-tender, mildly distended, VAC, PEG, and retention sutures intact EXTREMITIES: MAK, No deformities, edema present in BUE, palpable pulses SKIN: Skin color, texture, turgor normal, No rashes or lesions ? ASSESSMENT AND PLAN: Active Hospital Problems Diagnosis Date Noted - Ruptured abdominal aortic aneurysm (AAA) ([facility]) 01/12/2018 - TERENCE (acute kidney injury) (HCC) 01/30/2018 - Ileus (HCC) 01/30/2018 - Acute liver failure without hepatic coma 01/30/2018 - Obesity, Class I, BMI 30-34.9 01/16/2018 - Anoxic encephalopathy (HCC) 01/13/2018 - DIC (disseminated intravascular coagulation) (HCC) 01/12/2018 - Acute respiratory failure (HCC) 01/12/2018 - Cardiac arrest (HCC) 01/12/2018 - AAA (abdominal aortic aneurysm, ruptured) (HCC) 01/12/2018 Overview Note: Added automatically from request for surgery [id number] 77 year old male with Ruptured AAA s/p Emergent Repair, takeback washout, repair of serosal tears x2, on 01/12, hemorrhagic shock, acute resp failure with pulm edema, TERENCE, SVT, s/p Third Look Laparotomy and?washout on 01/14, fourth look, washout, vac change on 01/16, Partial fascial closure on 01/19, Fascial closure/Retention Sutures on 01/21, Trach and PEG on 01/27 ? - Trach Vent mgmt per MICU - NPO/TPN, TFs via PEG restarted 02/04, no residuals today. - Acute blood loss and dilutional anemia and thrombocytopenia - monitor, stable - TERENCE -->?IHD?per?Nephro. Good UOP for past 24. - Cont [place] --> wound care following for VAC changes - Leukocytosis - still trending down, 9.62 today - Acute blood loss/dilutional anemia - stable, monitor - Levo and sedation off - Reglan - LUE PICC - Hypocalcemia and kalemia?- replacing - Code Status: family wants to maintain Full Code status - Select following for LTAC placement, likely dc next week - Tunneled HD Cath placement on hold now - Femoral line pulled 02/04 Assessment and plan discussed with attending: Dr. Paniagua SIGNATURE: Braxton Sloan MD PATIENT NAME: Naveen Akins DATE: February 06, 2018 TIME: 8:27 AM Pager: [phone] PREALBUMIN Collected: 02/06/2018 Status: F Source: [facility] 5:56 AM HEALTH SYSTEM REPOSITORY TYPE CODE TESTS RESULT OUT OF REFERENCE UNITS RANGE LAB PAB(LOINC) 20.0-40.0 mg/dL Low Prealbumin 18.8 Performed By: #### PAB #### [place] [id number] IONIZED CALCIUM Collected: 02/06/2018 Status: F Source: [facility] 5:56 AM HEALTH SYSTEM REPOSITORY TYPE CODE TESTS RESULT OUT OF REFERENCE UNITS RANGE LAB CAION(LOINC 4.43-4.93 mg/dL ) Low Ionized 3.95 Calcium LAB PHCAI(LOINC 7.320-7.420 ) pH 7.387 LAB CAPH(LOINC) 4.36-4.73 mg/dL Low Ionized 3.92 Ca,PH7.4 Performed By: #### IONCA #### [facility] [address] [place] [id number] HEMOGRAM/DIFF Collected: 02/06/2018 Status: F Source: [facility] 5:56 AM HEALTH SYSTEM REPOSITORY TYPE CODE TESTS RESULT OUT OF REFERENCE UNITS RANGE LAB WBC(LOINC) 4.23-9.07 thou/cmm WBC High 9.62 LAB RBC(LOINC) 4.63-6.08 mil/cmm Low RBC 2.35 LAB HGB(LOINC) 13.7-17.5 g/dL Low Hgb alert 6.7 LAB HCT(LOINC) 40.1-51.0 % Low Hct 21.5 LAB MCV(LOINC) 83.2-95.6 fl MCV 91.5 LAB MCH(LOINC) 25.7-32.2 pg MCH 28.5 LAB MCHC(LOINC 32.3-36.5 % ) Low MCHC 31.2 LAB RDW(LOINC) 11.6-14.4 % RDW High 18.6 LAB RDWSD(LOIN 36.1-45.8 fl C) RDW SD High 61.8 LAB PLT(LOINC) 141-365 thou/cmm Platelet 286 LAB MPV(LOINC) 8.7-12.0 fl MPV 10.9 LAB SEG(LOINC) % Seg Neutrophil 79.2 LAB IGRE(LOINC % ) Immature Grans 1.60 LAB LYMPH(LOIN % C) Lymphocyte 13.3 LAB MNO(LOINC) % Monocyte 3.1 LAB EOSIN(LOIN % C) Eosinophil 2.7 LAB BASO(LOINC % ) Basophil 0.1 LAB SEGN(LOINC 1.78-5.38 thou/cmm ) Abs. High Neut (ANC) 7.62 LAB IGAB(LOINC 0.00-0.05 thou/cmm ) Abs High Immature Grans 0.15 LAB LYMN(LOINC 0.84-2.85 thou/cmm ) Abs. Lymph 1.28 LAB MONON(LOIN 0.30-0.82 thou/cmm C) Abs. Rincon 0.30 LAB EOSN(LOINC 0.04-0.54 thou/cmm ) Abs. Eosin 0.26 LAB BASON(LOIN 0.01-0.08 thou/cmm C) Abs. Baso 0.01 Performed By: #### CBCD1 #### [place] [id number] BASIC PANEL Collected: 02/06/2018 Status: F Source: [facility] 5:56 AM HEALTH SYSTEM REPOSITORY TYPE CODE TESTS RESULT OUT OF REFERENCE UNITS RANGE LAB NA(LOINC) 136-145 mEq/L Sodium Blood 141 LAB K(LOINC) 3.5-5.1 mEq/L Potassium Blood 4.2 LAB CL(LOINC) 98-107 mEq/L Chloride High Blood 109 LAB CO2(LOINC) 21-32 mEq/L CO2 Blood 21 LAB GLU(LOINC) 70-99 mg/dL Glucose High Blood 155 LAB BUN(LOINC) 7-18 mg/dL BUN High Blood 83 LAB CREA(LOINC 0.67-1.17 mg/dL ) High Creatinine Blood 3.44 LAB CA(LOINC) 8.5-10.1 mg/dL Low Calcium Blood 6.8 LAB ANGAP(LOIN 8-16 C) Anion Gap 15 Performed By: #### P8 #### [place] [id number] HEPATIC PANEL Collected: 02/06/2018 Status: F Source: [facility] 5:[facility] REPOSITORY TYPE CODE TESTS RESULT OUT OF REFERENCE UNITS RANGE LAB ALB(LOINC) 3.4-5.0 g/dL Low Albumin Blood 1.1 LAB ALT(LOINC) 12-78 U/L ALT-SGPT High Blood 92 LAB ALKP(LOINC 46-116 U/L ) Alk High Phosphatase 333 LAB TP(LOINC) 6.4-8.2 g/dL Low Total Protein 5.3 LAB AST(LOINC) 9-37 U/L AST-SGOT High Blood 104 LAB BILIT(LOIN 0.2-1.0 mg/dL C) Total High Bilirubin 2.9 LAB DBIL(LOINC 0.00-0.20 mg/dL ) Direct High Bilirubin 2.44 Performed By: #### HEPAP #### [facility] [address] [place], [place] [address] TRIGLYCERIDE BLOOD Collected: 02/06/2018 Status: F Source: [facility] 5:56 AM HEALTH SYSTEM REPOSITORY TYPE CODE TESTS RESULT OUT OF REFERENCE UNITS RANGE LAB TRIG(LOINC 0-149 mg/dL ) Triglyceride High Blood 266 Result Comment: < 200 Desirable Result invalid if not a fasting specimen. Performed By: #### TRIG #### [facility] [address] [place], [place] [address] CHEST 1 VIEW Observed: 02/06/2018 Status: F Source: [facility] 4:59 AM HEALTH SYSTEM REPOSITORY Performed at [facility] APPROVED BY: KRISTIE KHAN MD EXAM TITLE: PORTABLE AP/PA CHEST X RAY DATE: 02/06/2018 04:53 COMPARISON: 02/01/2018 CLINICAL INDICATION/HISTORY: Shock. Evaluate tube, line or lead position. ENCOUNTER: Not applicable TECHNIQUE: Single portable AP/PA radiograph of the chest RESULT: Lines, tubes, and devices: Interval removal of right internal jugular central venous catheter. Again demonstrated is tracheostomy tube, tube tip 6.8 cm above the kianna. Little interval change regarding left upper extremity central venous catheter with tip overlying the SVC-right atrial junction. Lungs and pleura: Again demonstrated are faint mixed interstitial and airspace opacities at the left mid and lower lung zones, possibly related atelectasis or consolidation. No discrete effusion or pneumothorax. Pulmonary vascularity within normal limits. Cardiomediastinal silhouette: Cardiac silhouette not enlarged. Atherosclerotic calcifications of the thoracic aorta. Other: Partially visualized is ORIF of left proximal humerus. IMPRESSION: Interval removal of right internal jugular central venous catheter. Little interval change regarding tracheostomy and left upper extremity central venous catheters Faint mixed interstitial and airspace opacities at the left lower lung zone, possibly related atelectasis or consolidation, essentially unchanged. No discrete new focal airspace consolidation, pneumothorax or effusion. PROGRESS Observed: 02/05/2018 Status: COMPLETED Source: [place] 2:19 PM CLINIC OTHER CAMPUS REPOSITORY [facility] ID: [id number] Author: Renate Handy Service: Nephrology Author Type: Physician Type: Progress Notes Filed: 02/05/2018 2:21 PM Note Text: Nephrology Progress Note Following for TERENCE. Pt is trached. Remains on ventilator. On FIO2 30%. Failed vent wean Off pressors Pt is unresponsive Current Inpatient Medications: Current Facility-Administered Medications Ordered in Epic: Parenteral Nutrition - Adult INTRAVENOUS ONCE TPN (1800 START) H Edwin Dudley darbepoetin barney in polysorbat 100 mcg injection (ARANESP) 100 mcg SUBCUTANEOUS ONCE Lora Soliz Parenteral Nutrition - Adult INTRAVENOUS ONCE TPN (1800 START) H Edwin Dudley Last Rate: 62.5 mL/hr at 02/05/18 0800 NORepinephrine 16 mg in D5W 250 mL (LEVOPHED) 0.6-30 mcg/min INTRAVENOUS CONTINUOUS Issac Contreras Stopped at 02/03/18 0430 midodrine (PROAMITINE) tab(s) 15 mg 15 mg PEG q 8 H Lora Sloiz 15 mg at 02/05/18 1107 pantoprazole 40 mg injection (PROTONIX) 40 mg INTRAVENOUS DAILY (6 AM) Lora Soliz 40 mg at 02/05/18 0624 carboxymethylcellulose sodium 1-2 Drop (CELLUVISC) 1-2 Drop BOTH EYES TID Lora Soliz 2 Drop at 02/05/18 1307 0.9% NaCl 10 mL 10 mL INTRAVENOUS q 12 H Lora Soliz 10 mL at 02/05/18 1000 0.9% NaCl 20 mL 20 mL INTRAVENOUS PRN Lora Soliz ipratropium-albuterol 3 mL nebulizer solution (DUONEB) 3 mL INHALATION QID Lora Soliz 3 mL at 02/05/18 1128 metoclopramide HCl 5 mg injection (REGLAN) 5 mg INTRAVENOUS q 12 H Lora Soliz 5 mg at 02/05/18 1101 0.9% NaCl 10 mL 10 mL INTRAVENOUS q 12 H Dionicio (Res) Stevens 10 mL at 02/05/18 1306 0.9% NaCl 20 mL 20 mL INTRAVENOUS PRN Dionicio (Res) Stevens magnesium sulfate in water 2 g in sterile water 50 ml 2 g INTRAVENOUS PRN Maggi (Res) Vershona fentaNYL 50 mcg/mL 25-50 mcg injection (SUBLIMAZE) 25-50 mcg INTRAVENOUS q 2 H PRN Venkat Paniagua 50 mcg at 02/03/18 1149 budesonide 0.5 mg/2 mL 0.5 mg (PULMICORT) 0.5 mg INHALATION BID Dorcas Palafox 0.5 mg at 02/05/18 0755 senna leaf extract 176 mg/5 mL 528 mg 15 mL OROGASTRIC BID Dionicio (Res) Stevens 528 mg at 02/04/18 2113 carboxymethylcellulose sodium 1-2 Drop (CELLUVISC) 1-2 Drop BOTH EYES PRN Venkat Paniagua 2 Drop at 01/26/18 1625 polyvinyl alcohol-povidone 1.4-0.6 % 1 Drop (REFRESH) 1 Drop BOTH EYES QID PRN Paulo ([employer] Super[employer]) [place] 1 Drop at 01/26/18 1724 heparin 1,000 unit/mL 4,000 Units injection 4,000 Units INTRAVENOUS 3 Times weekly with dialysis Troy Godoy 4,000 Units at 02/03/18 2340 heparin 5,000 Units injection 5,000 Units SUBCUTANEOUS q 12 H Venkat Paniagua 5,000 Units at 02/05/18 1030 dextrose 40 % 15 g 15 g ORAL PRN Jack Regula Or glucagon 1 mg injection (GLUCAGEN) 1 mg INTRAMUSCULAR PRN Jack Regula Or dextrose 50% in water 25 mL syringe 12.5 g INTRAVENOUS PRN Jack Regula Chlorhexidine Gluconate 0.12 % 15 mL (PERIDEX) 15 mL ORAL q 12 H Eldre Yu) Kalee 15 mL at 02/05/18 0900 No current [facility]-ordered outpatient prescriptions on file. Vitals: BP 117/63 Pulse 105 Temp 36.5 ?C (97.7 ?F) Resp (!) 47 Ht 172.7 cm (5' 7.99) Wt 87.5 kg (192 lb 14.4 oz) SpO2 99% BMI 29.34 kg/m? BLOOD PRESSURE RANGE: Systolic (24hrs), Av , Min:108 , Max:108 ; Diastolic (24hrs), Av, Min:53, Max:53 24HR INTAKE/OUTPUT: Intake/Output Summary (Last 24 hours) at 02/05/18 1419 Last data filed at 02/05/18 0800 Gross per 24 hour Intake 2058 ml Output 1200 ml Net 858 ml Physical exam: Constitutional spontaneous neck movements Skin: no rash, turgor wnl Heent: Trached Neck: no bruits or jvd noted Cardiovascular: ?S1, S2 normal without m/r/g Respiratory: Coarse breath sound bilaterally Abdomen: ?+bs, soft, nt, nd Ext: +1 upper> lower extremity edema Data: Labs: Recent Labs 02/05/18 0543 02/04/18 0540 02/03/18 0445 WBC 10.86* 15.02* 18.71* HB 7.2* 7.2* 7.7* HCT 22.6* 22.4* 24.2* MCV 90.0 90.0 90.0 PLT 264 215 231 Recent Labs 02/05/18 0543 02/04/18 0540 02/03/18 0445 NA 140 139 141 K 3.9 3.5 3.4* CO2 23 25 26 MG 2.0 1.7 1.4* BUN 70* 53* 56* CREAT 3.04* 2.29* 2.87* CA 7.0* 6.7* 6.2* Assessment and Plan 1. Acute kidney injury on chronic kidney disease stage 3. Baseline SCr is 1.36 mg/dL on 11/14/17. CKD is likely due to nephrosclerosis related to PAD. TERENCE is secondary to ischemic ATN from shock.CVVHDF was stopped 01/31. Off NE gtt. Pt is non oliguric. HD done yesterday UOP 1450, which is improving daily -HD catheter removed due to source of infection on 02/03-line holiday -cont to watch for renal recovery No need for HD today Cr is rising 2.3 to 3.0 ? 2. Shock. resolved Initially due to hemorrhagic shock-massive blood loss from ruptured AAA +/- adrenal insufficiency. Currently off NE gtt. On hydrocortisone. ? 3. Ruptured AAA. s/p repair 01/12/18. Management as per vascular surgery. ? 4. Acute hypoxic respiratory failure. Ventilator dependent. Vent management as per pulmonary/CCM. ? 5. Encephalopathy anoxic-poor prognosis ? Renal team will continue to follow Renate Handy DO PROGRESS Observed: 02/05/2018 Status: COMPLETED Source: [place] 1:25 PM CLINIC OTHER CAMPUS REPOSITORY [facility] ID: [id number] Author: Braxton Sloan MD Service: Vascular Surgery Author Type: Resident Type: Progress Notes Filed: 02/05/2018 1:28 PM Note Text: Attestation signed by Araceli Reynaga at 02/05/2018 1:43 PM I saw and evaluated the patient. Discussed with the resident and agree with resident's findings and plan as documented in the resident's note. Pt not responsive. WBC trending down. Femoral line removed yesterday. TF@ 10. Araceli Reynaga MD Vascular Surgery Progress Note Vascular AND Thoracic Surgery Service Pager: For questions or concerns Mon-Fri 6a-5p please page [phone]. After 5pm and on Weekends and Holidays, please page [phone] if in ICU or [phone] if on RNF. SERVICE DATE: 02/05/2018 Subjective SUBJECTIVE: NAEON. Pt nonresponsive Diet: Parenteral Nutrition - Adult DIET TUBE FEED - CONTIN (NO TRAY) Parenteral Nutrition - Adult Objective OBJECTIVE: Vitals: Temp (24hrs), Av.9 ?C (98.5 ?F), Min:36.5 ?C (97.7 ?F), Max:37.3 ?C (99.1 ?F) BP 117/63 Pulse 105 Temp 36.5 ?C (97.7 ?F) Resp (!) 47 Ht 172.7 cm (5' 7.99) Wt 87.5 kg (192 lb 14.4 oz) SpO2 99% BMI 29.34 kg/m? O2 Therapy: Ventilator IANDO: Date 02/04/18699 - 02/05/18 0659 02/05/18699 - 02/06/18 0659 Shift 3021-9885 5877-6064 1417-6595 24 Hour Total 4488-8347 1016-4929 3497-4079 24 Hour Total I N T A K E IV 338 24 362 NS 0.9% 38 24 62 Vancomycin IV 200 200 Meropenem (Merrem) 100 100 TPN/PPN 317 944 5319 TPN 350 372 0775 Irrigants 80 30 110 Irrigant/Flush Amount In (GI Feed/Drain 01/27/18 Assessment Gastrostomy) 80 30 110 Gastric Tube 76 80 156 Tube Feed Intake (I/O) (GI Feed/Drain 01/27/18 Assessment Gastrostomy) 76 80 156 Shift Total 7278 531 8538 O U T P U T Urine 280 235 204 6355 Tube Output ( Condom Catheter 02/02/18 2200) 280 262 558 9716 Drains 0 0 Negative Pressure: Output (mL) (Negative Pressure Wound Therapy 01/12/18 0749 Abdomen) 0 0 Tubes 60 0 60 0 0 Drain/Tube Output (Drain/Tube 01/19/18 1015 Midline Abdomen) 60 0 60 0 0 # of BMs Stool Incontinence 1 x 1 x 2 x Number of BMs 2 x 2 x Stool 300 300 Liquid BM (mL) 300 300 Shift Total 280 785 006 5052 0 0 Weight (kg) 82.8 82.8 87.5 87.5 87.5 87.5 87.5 87.5 MEDICATIONS Current Facility-Administered Medications: darbepoetin barney in polysorbat 100 mcg injection (ARANESP) 100 mcg SUBCUTANEOUS ONCE Parenteral Nutrition - Adult INTRAVENOUS ONCE TPN (1800 START) NORepinephrine 16 mg in D5W 250 mL (LEVOPHED) 0.6-30 mcg/min INTRAVENOUS CONTINUOUS midodrine (PROAMITINE) tab(s) 15 mg 15 mg PEG q 8 H pantoprazole 40 mg injection (PROTONIX) 40 mg INTRAVENOUS DAILY (6 AM) carboxymethylcellulose sodium 1-2 Drop (CELLUVISC) 1-2 Drop BOTH EYES TID 0.9% NaCl 10 mL 10 mL INTRAVENOUS q 12 H 0.9% NaCl 20 mL 20 mL INTRAVENOUS PRN ipratropium-albuterol 3 mL nebulizer solution (DUONEB) 3 mL INHALATION QID metoclopramide HCl 5 mg injection (REGLAN) 5 mg INTRAVENOUS q 12 H 0.9% NaCl 10 mL 10 mL INTRAVENOUS q 12 H 0.9% NaCl 20 mL 20 mL INTRAVENOUS PRN magnesium sulfate in water 2 g in sterile water 50 ml 2 g INTRAVENOUS PRN fentaNYL 50 mcg/mL 25-50 mcg injection (SUBLIMAZE) 25-50 mcg INTRAVENOUS q 2 H PRN budesonide 0.5 mg/2 mL 0.5 mg (PULMICORT) 0.5 mg INHALATION BID senna leaf extract 176 mg/5 mL 528 mg 15 mL OROGASTRIC BID carboxymethylcellulose sodium 1-2 Drop (CELLUVISC) 1-2 Drop BOTH EYES PRN polyvinyl alcohol-povidone 1.4-0.6 % 1 Drop (REFRESH) 1 Drop BOTH EYES QID PRN heparin 1,000 unit/mL 4,000 Units injection 4,000 Units INTRAVENOUS 3 Times weekly with dialysis heparin 5,000 Units injection 5,000 Units SUBCUTANEOUS q 12 H dextrose 40 % 15 g 15 g ORAL PRN Or glucagon 1 mg injection (GLUCAGEN) 1 mg INTRAMUSCULAR PRN Or dextrose 50% in water 25 mL syringe 12.5 g INTRAVENOUS PRN Chlorhexidine Gluconate 0.12 % 15 mL (PERIDEX) 15 mL ORAL q 12 H Labs: Recent Labs 02/05/18 0543 02/04/18 0540 NA 140 139 K 3.9 3.5 CHLOR 106 105 CO2 23 25 BUN 70* 53* CREAT 3.04* 2.29* GLUC 109* 113* ANION 15 13 CA 7.0* 6.7* MG 2.0 1.7 P 4.5 2.6 WBC 10.86* 15.02* HB 7.2* 7.2* HCT 22.6* 22.4* PLT 264 215 Exam: GENERAL: No distress NEURO: Eyes closed, does not respond to name, does not follow commands HEENT: normocephalic, atraumatic, Trach intact LUNGS: Unlabored breathing O2 Therapy: Ventilator CARDIAC: AFib, regular rhythm ABDOMEN: Soft, non-tender, mildly distended, VAC, PEG, and retention sutures intact EXTREMITIES: MAK, No deformities, No edema, palpable pulses SKIN: Skin color, texture, turgor normal, No rashes or lesions ASSESSMENT AND PLAN: Active Hospital Problems Diagnosis Date Noted - Ruptured abdominal aortic aneurysm (AAA) ([facility]) 01/12/2018 - TERENCE (acute kidney injury) ([facility]) 01/30/2018 - Ileus ([facility]) 01/30/2018 - Acute liver failure without hepatic coma 01/30/2018 - Obesity, Class I, BMI 30-34.9 01/16/2018 - Anoxic encephalopathy (HCC) 01/13/2018 - DIC (disseminated intravascular coagulation) (HCC) 01/12/2018 - Acute respiratory failure (HCC) 01/12/2018 - Cardiac arrest (HCC) 01/12/2018 - AAA (abdominal aortic aneurysm, ruptured) (HCC) 01/12/2018 Overview Note: Added automatically from request for surgery [id number] 77 year old male with Ruptured AAA s/p Emergent Repair, takeback washout, repair of serosal tears x2, on 01/12, hemorrhagic shock, acute resp failure with pulm edema, TERENCE, SVT, s/p Third Look Laparotomy and?washout on 01/14, fourth look, washout, vac change on 01/16, Partial fascial closure on 01/19, Fascial closure/Retention Sutures on 01/21, Trach and PEG on 01/27 ? - Trach Vent mgmt per MICU - NPO/TPN, TFs via PEG restarted 02/04, reasonable residuals today. - Acute blood loss and dilutional anemia and thrombocytopenia - monitor, stable - TERENCE -->?IHD?per?Nephro - Cont [place] --> wound care following for VAC changes - Leukocytosis - trending down - Acute blood loss/dilutional anemia - stable, monitor - Levo off - Sedation off - Reglan - LUE PICC - Hypocalcemia and kalemia?- replacing - Code Status: family wants to maintain Full Code status - Select following for LTAC placement, likely dc next week - Tunneled HD Cath placement on hold now - Femoral line pulled 02/04 ?? Assessment and plan discussed with attending: Dr. Reynaga SIGNATURE: Braxton Sloan MD PATIENT NAME: Naveen Akins DATE: February 05, 2018 TIME: 1:25 PM Pager: [phone] PROGRESS Observed: 02/05/2018 Status: COMPLETED Source: [place] 8:54 AM CLINIC OTHER CAMPUS REPOSITORY HNO ID: [id number] Author: Lora Soliz Service: Critical Care Author Type: Physician Type: Progress Notes Filed: 02/05/2018 9:03 AM Note Text: MICU - PROGRESS NOTE SERVICE DATE: 02/05/2018 SERVICE TIME: 8:54 AM Admission Date: 01/12/2018 AGE: [age] year old LOS: 24 days REASON FOR ICU ADMISSION: Respiratory Failure, Sepsis and S/P Surgery Objective cvl groin pulled Low TF restarted no dialysis Wound vac cmv vent STOPPED ATB TODAY AFTER >2 WEEKS PAST MEDICAL HISTORY Diagnosis Date - DIC (disseminated intravascular coagulation) (HCC) 01/12/2018 PAST SURGICAL HISTORY Procedure Laterality Date - LAP CHOLECYSTECT/CHOLANGIOGRAPHY 05-28-09 - PICC LINE INSERTION (PICC TEAM) ([place]) 01/31/2018 - PICC LINE INSERTION (PICC TEAM) (AK) 02/01/2018 - REPAIR UMBILICAL NATAN,5+Y/O,REDUC 05-28-09 Social History Marital status: Spouse name: Shelly Years of education: 11 Number of children: 4 Occupational History 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 BP 113/57 Pulse 92 Temp (Src) 99 (Core) Resp 26 Ht 5' 7.992 (1.73m) Wt 192 lb 14.4 oz (87.5kg) SpO2 100% BMI 29.34 kg/(m2). Temp (24hrs), Av.1 ?C (98.8 ?F), Min:36.9 ?C (98.4 ?F), Max:37.3 ?C (99.1 ?F) NET FLUID BALANCE Intake/Output Summary (Last 24 hours) at 02/05/18 0854 Last data filed at 02/05/18 0800 Gross per 24 hour Intake 2058 ml Output 1480 ml Net 578 ml MEDICATIONS Current Facility-Administered Medications: Parenteral Nutrition - Adult INTRAVENOUS ONCE TPN (1800 START) NORepinephrine 16 mg in D5W 250 mL (LEVOPHED) 0.6-30 mcg/min INTRAVENOUS CONTINUOUS midodrine (PROAMITINE) tab(s) 15 mg 15 mg PEG q 8 H pantoprazole 40 mg injection (PROTONIX) 40 mg INTRAVENOUS DAILY (6 AM) carboxymethylcellulose sodium 1-2 Drop (CELLUVISC) 1-2 Drop BOTH EYES TID 0.9% NaCl 10 mL 10 mL INTRAVENOUS q 12 H 0.9% NaCl 20 mL 20 mL INTRAVENOUS PRN ipratropium-albuterol 3 mL nebulizer solution (DUONEB) 3 mL INHALATION QID metoclopramide HCl 5 mg injection (REGLAN) 5 mg INTRAVENOUS q 12 H 0.9% NaCl 10 mL 10 mL INTRAVENOUS q 12 H 0.9% NaCl 20 mL 20 mL INTRAVENOUS PRN magnesium sulfate in water 2 g in sterile water 50 ml 2 g INTRAVENOUS PRN fentaNYL 50 mcg/mL 25-50 mcg injection (SUBLIMAZE) 25-50 mcg INTRAVENOUS q 2 H PRN budesonide 0.5 mg/2 mL 0.5 mg (PULMICORT) 0.5 mg INHALATION BID senna leaf extract 176 mg/5 mL 528 mg 15 mL OROGASTRIC BID carboxymethylcellulose sodium 1-2 Drop (CELLUVISC) 1-2 Drop BOTH EYES PRN polyvinyl alcohol-povidone 1.4-0.6 % 1 Drop (REFRESH) 1 Drop BOTH EYES QID PRN heparin 1,000 unit/mL 4,000 Units injection 4,000 Units INTRAVENOUS 3 Times weekly with dialysis heparin 5,000 Units injection 5,000 Units SUBCUTANEOUS q 12 H dextrose 40 % 15 g 15 g ORAL PRN Or glucagon 1 mg injection (GLUCAGEN) 1 mg INTRAMUSCULAR PRN Or dextrose 50% in water 25 mL syringe 12.5 g INTRAVENOUS PRN Chlorhexidine Gluconate 0.12 % 15 mL (PERIDEX) 15 mL ORAL q 12 H Lines, Drains, and Airways Line Central Line Double Lumen 02/01/18 0815 Peripherally Inserted (PICC) Left Arm 4 days Drain Drain/Tube 01/19/18 1015 Midline Abdomen 16 days GI Feed/Drain 01/27/18 Assessment Gastrostomy 9 days Drain/Tube 02/02/18 0300 Fecal Management System Rectum 3 days Condom Catheter 02/02/18 2200 2 days Airway Airway Tracheostomy 01/27/18 9 days PEX: OBTUNDED. No cognitive. Passive;motionless. Vss. Trach; RR 20s. PICC left. Wound vac. Soft. Retention sutures; PEG; Condom cath. Mild edema; mild jaundice. Respiratory/Nursing Documentation: O2 Therapy: Ventilator (02/05/18 0800) Invasive Ventilator Mode: Continuous Mandatory Ventilation (02/05/18756) Set Ventilator Respiratory Rate (BPM): 16 (02/05/18756) Total Respiratory Rate (BPM): 24 (02/05/18756) Tidal Volume Set (mL): 500 (02/05/18756) Exhaled Tidal Volume (mL): 459 (02/05/18756) Minute Volume (L): 11.5 (02/05/18756) Peak Inspiratory Pressure (cm H2O): 18 (02/05/18756) PEEP/CPAP (cm H2O): 5 (02/05/18756) HEMODYNAMIC DATA: reviewed CULTURE update: GNB IN SPUTUM , HX ENTEROBACTER CXR FINDINGS: NONE OTHER IMAGING: SEE CT ABD DATA: Diagnostic tests reviewed for today's visit: Most recent labs and imaging results REVIEWED. LABS: Recent Labs 02/05/18 0543 WBC 10.86* RBC 2.51* HB 7.2* HCT 22.6* MCV 90.0 PLT 264 GLUC 109* BUN 70* CREAT 3.04* NA 140 K 3.9 CHLOR 106 CO2 23 CA 7.0* MG 2.0 ABG: Invalid input(s): [id number] Assessment/Plan PROBLEMS: Patient Active Hospital Problem List: Ruptured abdominal aortic aneurysm (AAA) ([facility]) (01/12/2018) DIC (disseminated intravascular coagulation) ([facility]) (01/12/2018) Acute respiratory failure ([facility]) (01/12/2018) Cardiac arrest ([facility]) (01/12/2018) Anoxic encephalopathy ([facility]) (01/13/2018) AAA (abdominal aortic aneurysm, ruptured) ([facility]) (01/12/2018) Obesity, Class I, BMI 30-34.9 (01/16/2018) TERENCE (acute kidney injury) ([facility]) (01/30/2018) Ileus ([facility]) (01/30/2018) Acute liver failure without hepatic coma (01/30/2018) AAA rupture with msof, multiple reops, now fascial closure, inc wound vac output few days ago LOW grade fevers, mild inc wbc on merrum; picc ok/new; fi02 stable; wound vac. Groin line now out; small fluid collection abdomen, postop AAA resolved?hypotension/?shock, increased ?Midodrine and gave rbc to assist BP Severe anoxic enceph POOR OUTLOOK, no better to me TERENCE on NURSE'S ASSISTANT, controlled azotemia but higher off cvvhd, resume?HD tuesday Recovered thrombocytopenia Vent dep resp failure, cmv Trach Peg Ileus/ gastroparesis some better now mucosal TF Wound issues with wound vac Enterobacter LRTI , cxr fairly clear now; Left infiltrate better; post merrum and peritonitis likely post washout Shock Critical illness adrenal insuff, off steroid taper now Liver failure, cholestasis and post arrest shock hepatitis, mild improvement Hyperlipidemia TG 490, none in TPN, now down 336; no lipids in tpn Severe anemia ?7.2, after 1 rbc this week Resolved ple effusions Very prominent [place] 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 ? CRITICAL CARE PLAN: 1. psv trials failed, failed?sbt but 20?days vent; ?Cheyne[place]okes periodic breathing noted on psv?due to service architect catastrophe; 2. Tpn at 1700kcal /day, low mucosal TF; reglan noted (EKG qtc 480) so?decreased #; prealb 23; 3. HD; fluid even; new dialysis cath at some point with groin line > 2weeks removed 02/04 and low fevers 4. Tapered off?steroids hydrocortisone 25mg 5. merrum thru 02/04?noted and planned to stop after long course unasyn then merrum unless vAscular surgery wants longer; reculture and gave vanco one dose 02/03 and 02/04 pending blood cx 6. 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 Dcd?betty ?>?10 days, off norepi 8. PICC done ,?new tunneled HD cath Tuesday pre LTAC 9. Wound care?, vaccum 10. REC: ?DNR, family been resistent , I talked to son yesterday who acknowledged poor status and coma but is very spiritual.?Daughters aware of no service architect recovery, discussed today 11. calcium? 12. epogen product with CRF 13. CXR IN AM 14. LTAC next week SIGNATURE: Lora Soliz MD PATIENT NAME: Naveen Akins DATE: February 05, 2018 TIME: 8:54 AM IONIZED CALCIUM Collected: 02/05/2018 Status: F Source: [facility] 5:43 AM HEALTH SYSTEM REPOSITORY TYPE CODE TESTS RESULT OUT OF REFERENCE UNITS RANGE LAB CAION(LOINC 4.43-4.93 mg/dL ) Low Ionized 3.92 Calcium LAB PHCAI(LOINC 7.320-7.420 ) pH High 7.430 LAB CAPH(LOINC) 4.36-4.73 mg/dL Low Ionized 3.98 Ca,PH7.4 Performed By: #### IONCA #### [facility] [address] [place] [address] HEMOGRAM/DIFF Collected: 02/05/2018 Status: F Source: [facility] 5:43 AM HEALTH SYSTEM REPOSITORY TYPE CODE TESTS RESULT OUT OF REFERENCE UNITS RANGE LAB WBC(LOINC) 4.23-9.07 thou/cmm WBC High 10.86 LAB RBC(LOINC) 4.63-6.08 mil/cmm Low RBC 2.51 LAB HGB(LOINC) 13.7-17.5 g/dL Low Hgb 7.2 LAB HCT(LOINC) 40.1-51.0 % Low Hct 22.6 LAB MCV(LOINC) 83.2-95.6 fl MCV 90.0 LAB MCH(LOINC) 25.7-32.2 pg MCH 28.7 LAB MCHC(LOINC 32.3-36.5 % ) Low MCHC 31.9 LAB RDW(LOINC) 11.6-14.4 % RDW High 18.9 LAB RDWSD(LOIN 36.1-45.8 fl C) RDW SD High 61.6 LAB PLT(LOINC) 141-365 thou/cmm Platelet 264 LAB MPV(LOINC) 8.7-12.0 fl MPV 11.5 LAB SEG(LOINC) % Seg Neutrophil 82.0 LAB IGRE(LOINC % ) Immature Grans 2.20 LAB LYMPH(LOIN % C) Lymphocyte 10.4 LAB MNO(LOINC) % Monocyte 2.8 LAB EOSIN(LOIN % C) Eosinophil 2.5 LAB BASO(LOINC % ) Basophil 0.1 LAB SEGN(LOINC 1.78-5.38 thou/cmm ) Abs. High Neut (ANC) 8.91 LAB IGAB(LOINC 0.00-0.05 thou/cmm ) Abs High Immature Grans 0.24 LAB LYMN(LOINC 0.84-2.85 thou/cmm ) Abs. Lymph 1.13 LAB MONON(LOIN 0.30-0.82 thou/cmm C) Abs. Rincon 0.30 LAB EOSN(LOINC 0.04-0.54 thou/cmm ) Abs. Eosin 0.27 LAB BASON(LOIN 0.01-0.08 thou/cmm C) Abs. Baso 0.01 Result Comment: Smear scanned; tech agrees with automated differential Performed By: #### CBCD1 #### [place] [address] VANCOMYCIN,TROUGH Collected: Status: F Source: [place] 02/05/2018 5:43 AM [facility] REPOSITORY TYPE CODE TESTS RESULT OUT OF RANGE REFERENCE UNITS LAB VANCT(LOINC 10.0-20.0 mg/L ) 19.9 Vancomycin,T rough Performed By: #### VANCT #### [place] [address] BASIC PANEL Collected: 02/05/2018 Status: F Source: [facility] 5:43 AM HEALTH SYSTEM REPOSITORY TYPE CODE TESTS RESULT OUT OF REFERENCE UNITS RANGE LAB NA(LOINC) 136-145 mEq/L Sodium Blood 140 LAB K(LOINC) 3.5-5.1 mEq/L Potassium Blood 3.9 LAB CL(LOINC) 98-107 mEq/L Chloride Blood 106 LAB CO2(LOINC) 21-32 mEq/L CO2 Blood 23 LAB GLU(LOINC) 70-99 mg/dL Glucose High Blood 109 LAB BUN(LOINC) 7-18 mg/dL BUN High Blood 70 LAB CREA(LOINC 0.67-1.17 mg/dL ) High Creatinine Blood 3.04 LAB CA(LOINC) 8.5-10.1 mg/dL Low Calcium Blood 7.0 LAB ANGAP(LOIN 8-16 C) Anion Gap 15 Performed By: #### P8 #### [place] [address] MAGNESIUM BLOOD Collected: 02/05/2018 Status: F Source: [facility] 5:43 AM HEALTH SYSTEM REPOSITORY TYPE CODE TESTS RESULT OUT OF REFERENCE UNITS RANGE LAB MAG(LOINC) 1.6-2.6 mg/dL Magnesium Blood 2.0 Performed By: #### MAG #### [facility] [address] [place], [place] [address] PHOSPHORUS BLOOD Collected: 02/05/2018 Status: F Source: [facility] 5:43 AM HEALTH SYSTEM REPOSITORY TYPE CODE TESTS RESULT OUT OF REFERENCE UNITS RANGE LAB PHOS(LOINC 2.5-4.9 mg/dL ) Phosphorus Blood 4.5 Performed By: #### PHOS #### [facility] [address] [place], [place] [address] PROGRESS Observed: 02/04/2018 Status: COMPLETED Source: [place] 1:35 PM CLINIC OTHER CAMPUS REPOSITORY HNO ID: [id number] Author: Renate Handy Service: Nephrology Author Type: Physician Type: Progress Notes Filed: 02/04/2018 1:38 PM Note Text: Nephrology Progress Note Following for TERENCE. Pt is trached. Remains on ventilator. On FIO2 30%. Off BP pressors Pt is unresponsive D/w son at bedside Current Inpatient Medications: Current Facility-Administered Medications Ordered in Epic: Parenteral Nutrition - Adult INTRAVENOUS ONCE TPN (1800 START) H Edwin Dudley magnesium oxide 400 mg tab(s) (MAG-OX) 400 mg ORAL BID Dionicio (Res) Stevens 400 mg at 02/04/18 0821 Parenteral Nutrition - Adult INTRAVENOUS ONCE TPN (1800 START) H Edwin Dudley Last Rate: 62.5 mL/hr at 02/04/18 1200 NORepinephrine 16 mg in D5W 250 mL (LEVOPHED) 0.6-30 mcg/min INTRAVENOUS CONTINUOUS Issac Contreras Stopped at 02/03/18 0430 midodrine (PROAMITINE) tab(s) 15 mg 15 mg PEG q 8 H Lora Soliz 15 mg at 02/04/18 0634 pantoprazole 40 mg injection (PROTONIX) 40 mg INTRAVENOUS DAILY (6 AM) Lora Soliz 40 mg at 02/04/18 0635 carboxymethylcellulose sodium 1-2 Drop (CELLUVISC) 1-2 Drop BOTH EYES TID Lora Soliz 2 Drop at 02/04/18 0821 0.9% NaCl 10 mL 10 mL INTRAVENOUS q 12 H Lora Soliz 10 mL at 02/04/18 0820 0.9% NaCl 20 mL 20 mL INTRAVENOUS PRN Lora Soliz ipratropium-albuterol 3 mL nebulizer solution (DUONEB) 3 mL INHALATION QID Lora Soliz 3 mL at 02/04/18 1141 metoclopramide HCl 5 mg injection (REGLAN) 5 mg INTRAVENOUS q 12 H Lora Soliz 5 mg at 02/04/18 0820 0.9% NaCl 10 mL 10 mL INTRAVENOUS q 12 H Dionicio (Res) Stevens 10 mL at 02/04/18 0829 0.9% NaCl 20 mL 20 mL INTRAVENOUS PRN Dionicio (Res) Stevens magnesium sulfate in water 2 g in sterile water 50 ml 2 g INTRAVENOUS PRN Maggi (Res) [place] fentaNYL 50 mcg/mL 25-50 mcg injection (SUBLIMAZE) 25-50 mcg INTRAVENOUS q 2 H PRN Venkat P[place] 50 mcg at 02/03/18 1149 budesonide 0.5 mg/2 mL 0.5 mg (PULMICORT) 0.5 mg INHALATION BID Dorcas Mike Decoy 0.5 mg at 02/04/18 1141 senna leaf extract 176 mg/5 mL 528 mg 15 mL OROGASTRIC BID Dionicio (Res) Stevens 528 mg at 02/04/18 0829 carboxymethylcellulose sodium 1-2 Drop (CELLUVISC) 1-2 Drop BOTH EYES PRN Venkat P[place]agua 2 Drop at 01/26/18 1625 polyvinyl alcohol-povidone 1.4-0.6 % 1 Drop (REFRESH) 1 Drop BOTH EYES QID PRN Paulo (Meter Repair Shop Supervisor) [place] 1 Drop at 01/26/18 1724 heparin 1,000 unit/mL 4,000 Units injection 4,000 Units INTRAVENOUS 3 Times weekly with dialysis Troy Godoy 4,000 Units at 02/03/18 2340 heparin 5,000 Units injection 5,000 Units SUBCUTANEOUS q 12 H Venkat Paniagua 5,000 Units at 02/04/18 0820 dextrose 40 % 15 g 15 g ORAL PRN Jack Regula Or glucagon 1 mg injection (GLUCAGEN) 1 mg INTRAMUSCULAR PRN Jack Regula Or dextrose 50% in water 25 mL syringe 12.5 g INTRAVENOUS PRN Jack Regula Chlorhexidine Gluconate 0.12 % 15 mL (PERIDEX) 15 mL ORAL q 12 H Elder Yu) Kalee 15 mL at 02/04/18 0821 No current [facility]-ordered outpatient prescriptions on file. Vitals: BP 94/51 Pulse 92 Temp 37.1 ?C (98.8 ?F) Resp 28 Ht 172.7 cm (5' 7.99) Wt 82.8 kg (182 lb 8.7 oz) SpO2 98% BMI 27.76 kg/m? BLOOD PRESSURE RANGE: Systolic (24hrs), Av , Min:108 , Max:108 ; Diastolic (24hrs), Av, Min:53, Max:53 24HR INTAKE/OUTPUT: Intake/Output Summary (Last 24 hours) at 02/04/18 1335 Last data filed at 02/04/18 0900 Gross per 24 hour Intake 2050 ml Output 2570 ml Net -520 ml Physical exam: Constitutional: NAD? Skin: no rash, turgor wnl Heent: Trached Neck: no bruits or jvd noted Cardiovascular: ?S1, S2 normal without m/r/g Respiratory: Coarse breath sound bilaterally Abdomen: ?+bs, soft, nt, nd Ext: +1 upper> lower extremity edema Data: Labs: Recent Labs 02/04/18 0540 02/03/18 0445 02/02/18 0500 WBC 15.02* 18.71* 12.77* HB 7.2* 7.7* 7.8* HCT 22.4* 24.2* 24.1* MCV 90.0 90.0 88.0 PLT 215 231 240 Recent Labs 02/04/18 0540 02/03/18 0445 02/02/18 0500 NA 139 141 142 K 3.5 3.4* 2.8* CO2 25 26 24 MG 1.7 1.4* 1.8 BUN 53* 56* 88* CREAT 2.29* 2.87* 3.29* CA 6.7* 6.2* 6.9* Assessment and Plan 1. Acute kidney injury on chronic kidney disease stage 3. Baseline SCr is 1.36 mg/dL on 11/14/17. CKD is likely due to nephrosclerosis related to PAD. TERENCE is secondary to ischemic ATN from shock.CVVHDF was stopped 01/31. Off NE gtt. Pt is non oliguric. HD done yesterday UOP 1450, which is improving daily -HD catheter removed due to source of infection-line holiday -cont to watch for renal recovery No need for HD today ? 2. Shock. resolved Initially due to hemorrhagic shock-massive blood loss from ruptured AAA +/- adrenal insufficiency. Currently off NE gtt. On hydrocortisone. ? 3. Ruptured AAA. s/p repair 01/12/18. Management as per vascular surgery. ? 4. Acute hypoxic respiratory failure. Ventilator dependent. Vent management as per pulmonary/CCM. ? 5. Encephalopathy anoxic-poor prognosis ? Renal team will continue to follow Renate Handy DO PROGRESS Observed: 02/04/2018 Status: COMPLETED Source: [place] 9:04 AM [facility] OTHER CAMPUS REPOSITORY O ID: [id number] Author: Lora Soliz Service: Critical Care Author Type: Physician Type: Progress Notes Filed: 02/04/2018 9:11 AM Note Text: MICU - PROGRESS NOTE SERVICE DATE: 02/04/2018 SERVICE TIME: 9:04 AM Admission Date: 01/12/2018 AGE: [age] year old LOS: 23 days REASON FOR ICU ADMISSION: Shock and S/P Surgery Objective Low fever Stable vent Npo Post Ct abd reviewed cx pending Groin line per others PAST MEDICAL HISTORY Diagnosis Date - DIC (disseminated intravascular coagulation) (HCC) 01/12/2018 PAST SURGICAL HISTORY Procedure Laterality Date - LAP CHOLECYSTECT/CHOLANGIOGRAPHY 05-28-09 - PICC LINE INSERTION (PICC TEAM) ([place]) 01/31/2018 - PICC LINE INSERTION (PICC TEAM) ([place]) 02/01/2018 - REPAIR UMBILICAL NATAN,5+Y/O,REDUC 05-28-09 Social History Marital status: Spouse name: Shelly Years of education: 11 Number of children: 4 Occupational History 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 BP 105/54 Pulse 82 Temp (Src) 99.1 (Core) Resp 20 Ht 5' 7.992 (1.73m) Wt 182 lb 8.7 oz (82.8kg) SpO2 99% BMI 27.76 kg/(m2). Temp (24hrs), Av.1 ?C (98.8 ?F), Min:35.8 ?C (96.4 ?F), Max:38 ?C (100.4 ?F) NET FLUID BALANCE Intake/Output Summary (Last 24 hours) at 02/04/18 0904 Last data filed at 02/04/18 0748 Gross per 24 hour Intake 2050 ml Output 3055 ml Net -1005 ml MEDICATIONS Current Facility-Administered Medications: magnesium oxide 400 mg tab(s) (MAG-OX) 400 mg ORAL BID Parenteral Nutrition - Adult INTRAVENOUS ONCE TPN (1800 START) NORepinephrine 16 mg in D5W 250 mL (LEVOPHED) 0.6-30 mcg/min INTRAVENOUS CONTINUOUS midodrine (PROAMITINE) tab(s) 15 mg 15 mg PEG q 8 H pantoprazole 40 mg injection (PROTONIX) 40 mg INTRAVENOUS DAILY (6 AM) carboxymethylcellulose sodium 1-2 Drop (CELLUVISC) 1-2 Drop BOTH EYES TID 0.9% NaCl 10 mL 10 mL INTRAVENOUS q 12 H 0.9% NaCl 20 mL 20 mL INTRAVENOUS PRN ipratropium-albuterol 3 mL nebulizer solution (DUONEB) 3 mL INHALATION QID metoclopramide HCl 5 mg injection (REGLAN) 5 mg INTRAVENOUS q 12 H 0.9% NaCl 10 mL 10 mL INTRAVENOUS q 12 H 0.9% NaCl 20 mL 20 mL INTRAVENOUS PRN magnesium sulfate in water 2 g in sterile water 50 ml 2 g INTRAVENOUS PRN fentaNYL 50 mcg/mL 25-50 mcg injection (SUBLIMAZE) 25-50 mcg INTRAVENOUS q 2 H PRN budesonide 0.5 mg/2 mL 0.5 mg (PULMICORT) 0.5 mg INHALATION BID senna leaf extract 176 mg/5 mL 528 mg 15 mL OROGASTRIC BID carboxymethylcellulose sodium 1-2 Drop (CELLUVISC) 1-2 Drop BOTH EYES PRN polyvinyl alcohol-povidone 1.4-0.6 % 1 Drop (REFRESH) 1 Drop BOTH EYES QID PRN heparin 1,000 unit/mL 4,000 Units injection 4,000 Units INTRAVENOUS 3 Times weekly with dialysis heparin 5,000 Units injection 5,000 Units SUBCUTANEOUS q 12 H dextrose 40 % 15 g 15 g ORAL PRN Or glucagon 1 mg injection (GLUCAGEN) 1 mg INTRAMUSCULAR PRN Or dextrose 50% in water 25 mL syringe 12.5 g INTRAVENOUS PRN Chlorhexidine Gluconate 0.12 % 15 mL (PERIDEX) 15 mL ORAL q 12 H Lines, Drains, and Airways Line Dialysis / Apheresis Double Lumen 01/24/18 1400 Non-tunneled Right Groin 10 days Central Line Double Lumen 02/01/18 0815 Peripherally Inserted (PICC) Left Arm 3 days Drain Drain/Tube 01/19/18 1015 Midline Abdomen 15 days GI Feed/Drain 01/27/18 Assessment Gastrostomy 8 days Drain/Tube 02/02/18 0300 Fecal Management System Rectum 2 days Condom Catheter 02/02/18 2200 1 day Airway Airway Tracheostomy 01/27/18 8 days Respiratory/Nursing Documentation: O2 Therapy: Ventilator (02/04/18 0748) Invasive Ventilator Mode: Continuous Mandatory Ventilation (02/04/18340) Set Ventilator Respiratory Rate (BPM): 16 (02/04/18340) Total Respiratory Rate (BPM): 18 (02/04/18340) Tidal Volume Set (mL): 500 (02/04/18340) Exhaled Tidal Volume (mL): 448 (02/03/182017) Minute Volume (L): 16.4 (02/04/18340) Peak Inspiratory Pressure (cm H2O): 18 (02/04/18340) PEEP/CPAP (cm H2O): 5 (02/04/18340) HEMODYNAMIC DATA: reviewed NUTRITION: tpn Enteral Feeds: off TF 24 hrs VENT: 500/5 WEANS: SEDATION: none DRIPS: PRESSORS: none CULTURE update: Few GNB , inc pmn on sputum CXR FINDINGS: OTHER IMAGING: IMPRESSION: ? There are patchy airspace opacities in both lower lobes which may represent areas of atelectasis and/or pneumonia. ? The patient is status post graft repair of an infrarenal abdominal aortic aneurysm. ?There is a fluid collection surrounding the graft and extending into the left pelvis. ?Whether this collection is sterile or infected cannot be determined on this study. ?Differential for this would include seroma or other postoperative fluid collections. ?The density of this fluid measures simple fluid density suggesting against an acute bleed, however an acute bleed cannot be entirely excluded. ?Depending on the clinical concern a contrast-enhanced CT could ?be considered for further evaluation. ? Small amount of ascites within the abdomen and pelvis. ? DATA: Diagnostic tests reviewed for today's visit: Most recent labs and imaging results REVIEWED. LABS: Recent Labs 02/04/18 0540 WBC 15.02* RBC 2.49* HB 7.2* HCT 22.4* MCV 90.0 PLT 215 GLUC 113* BUN 53* CREAT 2.29* NA 139 K 3.5 CHLOR 105 CO2 25 CA 6.7* MG 1.7 ABG: Invalid input(s): [id number] Assessment/Plan PROBLEMS: Patient Active Hospital Problem List: Ruptured abdominal aortic aneurysm (AAA) ([facility]) (01/12/2018) DIC (disseminated intravascular coagulation) ([facility]) (01/12/2018) Acute respiratory failure ([facility]) (01/12/2018) Cardiac arrest ([facility]) (01/12/2018) Anoxic encephalopathy ([facility]) (01/13/2018) AAA (abdominal aortic aneurysm, ruptured) ([facility]) (01/12/2018) Obesity, Class I, BMI 30-34.9 (01/16/2018) TERENCE (acute kidney injury) ([facility]) (01/30/2018) Ileus ([facility]) (01/30/2018) Acute liver failure without hepatic coma (01/30/2018) AAA rupture with msof, multiple reops, now fascial closure, inc wound vac output LOW grade fevers, mild inc wbc on merrum; picc ok/new; fi02 stable; wound grossly ok. Groin line ok exit; small fluid collection postop AAA resolved?hypotension/?shock, increased ?Midodrine and gave rbc to assist BP Severe anoxic enceph POOR OUTLOOK, no better to me TERENCE on NURSE'S ASSISTANT, controlled azotemia but higher off cvvhd, resume?HD Recovered thrombocytopenia Vent dep resp failure, cmv Trach Peg Ileus/ gastroparesis some better now mucosal TF until npo for abd ct, ?drainage wound Wound issues with wound vac Enterobacter LRTI , cxr fairly clear now; Left infiltrate better; merrum and peritonitis likely post washout Shock Critical illness adrenal insuff, off steroid taper now Liver failure, cholestasis and post arrest shock hepatitis, mild improvement Hyperlipidemia TG 490, none in TPN, now down 336 Severe anemia ?7.2, after 1 rbc Resolved ple effusions Very prominent [place] 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 ? CRITICAL CARE PLAN: 1. psv trials failed, failed?sbt but 19?days vent; ?[place] periodic breathing on psv?due to service architect; 2. Tpn at 1700kcal /day, low TF; reglan noted (EKG qtc 480) so?decrease #; prealb 23; 3. HD; fluid even; new dialysis cath at some point with groin line > 2weeks and low fevers 4. Tapered off steroids hydrocortisone 25mg 5. merrum thru 02/04 noted and planned to stop after long course unasyn then merrum unless vAscular surgery wants longer; reculture and gave vanco one dose 02/03 6. 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 Dcd?betty ?>?10 days, off norepi 8. PICC done ,?new tunneled HD cath Tuesday 9. Wound care? 10. REC: DNR, family been resistent per staff , I talked to son yesterday who acknowledged poor status and coma but is very spiritual.?Daughter aware of no service architect recovery, discussed today ?11. calcium 12. epogen product Critical Care Documentation: The patient has the following organ/system impairment(s): Respiratory failure (Acute, Acute on Chronic), Severe electrolyte imbalance, Severe metabolic disorder and Severe protein-calorie malnutrition This patient has a high probability of sudden, clinically significant deterioration, which requires the highest level of physician preparedness to intervene urgently. I managed/supervised life or organ supporting interventions that required frequent physician assessment. I devoted my full attention to the direct care of this patient for the amount of time indicated below. Time I spent with family or surrogate(s) is included only if the patient was incapable of providing the necessary information or participating in medical decision making. Time devoted to teaching is not included. Patient Updated No Family Updated Yes, daughters today Discussed with Staff Yes Time spent providing critical care services: 30 minutes excluding billable procedures. SIGNATURE: Lora Soliz MD PATIENT NAME: Naveen Akins DATE: February 04, 2018 TIME: 9:04 AM PROGRESS Observed: 02/04/2018 Status: COMPLETED Source: [place] 6:56 AM CLINIC OTHER CAMPUS REPOSITORY HNO ID: [id number] Author: Braxton Sloan MD Service: Vascular Surgery Author Type: Resident Type: Progress Notes Filed: 02/04/2018 10:49 AM Note Text: Attestation signed by Araceli Reynaga at 02/04/2018 12:10 PM I saw and evaluated the patient. Discussed with the resident and agree with resident's findings and plan as documented in the resident's note. Re-start trickle tube feeds, monitor residuals WBC decreasing D/c femoral dialysis line. Will need new access next week. Araceli Reynaga MD Vascular Surgery Progress Note SERVICE DATE: 02/04/2018 Subjective SUBJECTIVE: Abx done today. TF stopped yesterday for CT and not restarted, residual 60. Diet: DIET NPO Parenteral Nutrition - Adult Objective OBJECTIVE: Vitals: Temp (24hrs), Av.3 ?C (99.2 ?F), Min:35.8 ?C (96.4 ?F), Max:38.2 ?C (100.8 ?F) BP 106/51 Pulse 89 Temp 37.3 ?C (99.1 ?F) Resp 27 Ht 172.7 cm (5' 7.99) Wt 82.8 kg (182 lb 8.7 oz) SpO2 100% BMI 27.76 kg/m? O2 Therapy: Ventilator IANDO: Date 02/03/18 07 - 02/04/18 0659 02/04/18 07 - 02/05/18 0659 Shift 1427-5113 2304-4858 2198-3772 24 Hour Total 2591-4398 2144-9687 6089-8056 24 Hour Total I N T A K E IV 440 160 600 NS 0.9% 70 60 130 Vancomycin IV 250 250 NORepinephrine Volume 20 20 Meropenem (Merrem) 100 100 200 TPN/PPN 250 500 750 TPN 250 500 750 Irrigants 100 100 Irrigant/Flush Amount In (GI Feed/Drain 01/27/18 Assessment Gastrostomy) 100 100 Dialysis 600 600 Dialysis intake 600 600 Shift Total 690 1360 2050 O U T P U T Urine 450 493 872 3578 Tube Output ( Condom Catheter 02/02/18 2200) 450 829 397 7698 Tubes 175 30 205 Drain/Tube Output (Drain/Tube 01/19/18 1015 Midline Abdomen) 125 30 155 Drain/Tube Output (Drain/Tube 02/02/18 0300 Fecal Management System Rectum) 50 50 Output (GI Feed/Drain 01/27/18 Assessment Gastrostomy) 0 0 Dialysis 1400 1400 Dialysis Output (Ultrafiltration) 1400 1400 Shift Total 193 084 7854 2905 Weight (kg) 83.4 83.4 82.8 82.8 82.8 82.8 82.8 82.8 MEDICATIONS Current Facility-Administered Medications: magnesium oxide 400 mg tab(s) (MAG-OX) 400 mg ORAL BID Parenteral Nutrition - Adult INTRAVENOUS ONCE TPN (1800 START) NORepinephrine 16 mg in D5W 250 mL (LEVOPHED) 0.6-30 mcg/min INTRAVENOUS CONTINUOUS meropenem 500 mg in NaCl 0.9% 100 mL MB+ (MERREM) 500 mg INTRAVENOUS q 12 H midodrine (PROAMITINE) tab(s) 15 mg 15 mg PEG q 8 H pantoprazole 40 mg injection (PROTONIX) 40 mg INTRAVENOUS DAILY (6 AM) carboxymethylcellulose sodium 1-2 Drop (CELLUVISC) 1-2 Drop BOTH EYES TID 0.9% NaCl 10 mL 10 mL INTRAVENOUS q 12 H 0.9% NaCl 20 mL 20 mL INTRAVENOUS PRN ipratropium-albuterol 3 mL nebulizer solution (DUONEB) 3 mL INHALATION QID metoclopramide HCl 5 mg injection (REGLAN) 5 mg INTRAVENOUS q 12 H 0.9% NaCl 10 mL 10 mL INTRAVENOUS q 12 H 0.9% NaCl 20 mL 20 mL INTRAVENOUS PRN magnesium sulfate in water 2 g in sterile water 50 ml 2 g INTRAVENOUS PRN fentaNYL 50 mcg/mL 25-50 mcg injection (SUBLIMAZE) 25-50 mcg INTRAVENOUS q 2 H PRN budesonide 0.5 mg/2 mL 0.5 mg (PULMICORT) 0.5 mg INHALATION BID senna leaf extract 176 mg/5 mL 528 mg 15 mL OROGASTRIC BID carboxymethylcellulose sodium 1-2 Drop (CELLUVISC) 1-2 Drop BOTH EYES PRN polyvinyl alcohol-povidone 1.4-0.6 % 1 Drop (REFRESH) 1 Drop BOTH EYES QID PRN heparin 1,000 unit/mL 4,000 Units injection 4,000 Units INTRAVENOUS 3 Times weekly with dialysis heparin 5,000 Units injection 5,000 Units SUBCUTANEOUS q 12 H dextrose 40 % 15 g 15 g ORAL PRN Or glucagon 1 mg injection (GLUCAGEN) 1 mg INTRAMUSCULAR PRN Or dextrose 50% in water 25 mL syringe 12.5 g INTRAVENOUS PRN Chlorhexidine Gluconate 0.12 % 15 mL (PERIDEX) 15 mL ORAL q 12 H Labs: Recent Labs 02/04/18 0540 02/03/18 0445 02/02/18 0500 NA 139 141 142 K 3.5 3.4* 2.8* CHLOR 105 106 104 CO2 25 26 24 BUN 53* 56* 88* CREAT 2.29* 2.87* 3.29* GLUC 113* 132* 160* ANION 13 12 17* CA 6.7* 6.2* 6.9* MG -- 1.4* 1.8 P -- 2.2* 4.9 WBC 15.02* 18.71* 12.77* HB 7.2* 7.7* 7.8* HCT 22.4* 24.2* 24.1* PLT 215 231 240 Exam: GENERAL: No distress NEURO: Opens eyes, no tracking, not following HEENT: normocephalic, atraumatic, Trach intact LUNGS: Unlabored breathing O2 Therapy: Ventilator CARDIAC: AFib, regular rhythm ABDOMEN: Soft, non-tender, mildly distended, VAC, PEG, and retention sutures intact EXTREMITIES: MAK, No deformities, No edema, palpable pulses SKIN: Skin color, texture, turgor normal, No rashes or lesions ASSESSMENT AND PLAN: Active Hospital Problems Diagnosis Date Noted - Ruptured abdominal aortic aneurysm (AAA) ([facility]) 01/12/2018 - TERENCE (acute kidney injury) ([facility]) 01/30/2018 - Ileus (HCC) 01/30/2018 - Acute liver failure without hepatic coma 01/30/2018 - Obesity, Class I, BMI 30-34.9 01/16/2018 - Anoxic encephalopathy (HCC) 01/13/2018 - DIC (disseminated intravascular coagulation) (HCC) 01/12/2018 - Acute respiratory failure (HCC) 01/12/2018 - Cardiac arrest ([facility]) 01/12/2018 - AAA (abdominal aortic aneurysm, ruptured) ([facility]) 01/12/2018 Overview Note: Added automatically from request for surgery [id number] 77 year old male with Ruptured AAA s/p Emergent Repair, takeback washout, repair of serosal tears x2, on 01/12, hemorrhagic shock, acute resp failure with pulm edema, TERENCE, SVT, s/p Third Look Laparotomy and?washout on 01/14, fourth look, washout, vac change on 01/16, Partial fascial closure on 01/19, Fascial closure/Retention Sutures on 01/21, Trach and PEG on 01/27 ? - Trach Vent mgmt per MICU - NPO/TPN, TFs via PEG restarted today. - Acute blood loss and dilutional anemia and thrombocytopenia - monitor, stable - TERENCE -->?IHD?per?Nephro - meropenum last dose given. Will stop abx for now. - Cont W[place] --> wound care following for VAC changes - Leukocytosis - trending down - Acute blood loss/dilutional anemia - stable, monitor - Levo off - Sedation off - Reglan - LUE PICC - Hypocalcemia and kalemia?- replacing - Code Status: family wants to maintain Full Code status - Select following for LTAC placement, likely dc next week - Tunneled HD Cath placement on hold now - Will pull femoral line today. ?? Assessment and plan discussed with attending: Dr. Reynaga SIGNATURE: Braxton Sloan MD PATIENT NAME: Naveen Akins DATE: February 04, 2018 TIME: 6:57 AM Pager: [phone] IONIZED CALCIUM Collected: 02/04/2018 Status: F Source: [facility] 5:40 AM HEALTH SYSTEM REPOSITORY TYPE CODE TESTS RESULT OUT OF REFERENCE UNITS RANGE LAB CAION(LOINC 4.43-4.93 mg/dL ) Low Ionized 3.82 Calcium LAB PHCAI(LOINC 7.320-7.420 ) pH High 7.467 LAB CAPH(LOINC) 4.36-4.73 mg/dL Low Ionized 3.96 Ca,PH7.4 Performed By: #### IONCA #### [facility] [address] [place] [address] HEMOGRAM/DIFF Collected: 02/04/2018 Status: F Source: [facility] 5:40 AM HEALTH SYSTEM REPOSITORY TYPE CODE TESTS RESULT OUT OF REFERENCE UNITS RANGE LAB WBC(LOINC) 4.23-9.07 thou/cmm WBC High 15.02 LAB RBC(LOINC) 4.63-6.08 mil/cmm Low RBC 2.49 LAB HGB(LOINC) 13.7-17.5 g/dL Low Hgb 7.2 LAB HCT(LOINC) 40.1-51.0 % Low Hct 22.4 LAB MCV(LOINC) 83.2-95.6 fl MCV 90.0 LAB MCH(LOINC) 25.7-32.2 pg MCH 28.9 LAB MCHC(LOINC 32.3-36.5 % ) Low MCHC 32.1 LAB RDW(LOINC) 11.6-14.4 % RDW High 18.8 LAB RDWSD(LOIN 36.1-45.8 fl C) RDW SD High 61.0 LAB PLT(LOINC) 141-365 thou/cmm Platelet 215 LAB MPV(LOINC) 8.7-12.0 fl MPV 11.4 LAB SEG(LOINC) % Seg Neutrophil 84.9 LAB IGRE(LOINC % ) Immature Grans 3.60 LAB LYMPH(LOIN % C) Lymphocyte 7.4 LAB MNO(LOINC) % Monocyte 2.3 LAB EOSIN(LOIN % C) Eosinophil 1.7 LAB BASO(LOINC % ) Basophil 0.1 LAB SEGN(LOINC 1.78-5.38 thou/cmm ) Abs. High Neut (ANC) 12.75 LAB IGAB(LOINC 0.00-0.05 thou/cmm ) Abs High Immature Grans 0.54 LAB LYMN(LOINC 0.84-2.85 thou/cmm ) Abs. Lymph 1.11 LAB MONON(LOIN 0.30-0.82 thou/cmm C) Abs. Rincon 0.35 LAB EOSN(LOINC 0.04-0.54 thou/cmm ) Abs. Eosin 0.26 LAB BASON(LOIN 0.01-0.08 thou/cmm C) Abs. Baso 0.02 Performed By: #### CBCD1 #### [place] [address] BASIC PANEL Collected: 02/04/2018 Status: F Source: [facility] 5:40 AM HEALTH SYSTEM REPOSITORY TYPE CODE TESTS RESULT OUT OF REFERENCE UNITS RANGE LAB NA(LOINC) 136-145 mEq/L Sodium Blood 139 LAB K(LOINC) 3.5-5.1 mEq/L Potassium Blood 3.5 LAB CL(LOINC) 98-107 mEq/L Chloride Blood 105 LAB CO2(LOINC) 21-32 mEq/L CO2 Blood 25 LAB GLU(LOINC) 70-99 mg/dL Glucose High Blood 113 LAB BUN(LOINC) 7-18 mg/dL BUN High Blood 53 LAB CREA(LOINC 0.67-1.17 mg/dL ) High Creatinine Blood 2.29 LAB CA(LOINC) 8.5-10.1 mg/dL Low Calcium Blood 6.7 LAB ANGAP(LOIN 8-16 C) Anion Gap 13 Performed By: #### P8 #### [place] [address] MAGNESIUM BLOOD Collected: 02/04/2018 Status: F Source: [facility] 5:40 AM HEALTH SYSTEM REPOSITORY TYPE CODE TESTS RESULT OUT OF REFERENCE UNITS RANGE LAB MAG(LOINC) 1.6-2.6 mg/dL Magnesium Blood 1.7 Performed By: #### MAG #### [place] [address] PHOSPHORUS BLOOD Collected: 02/04/2018 Status: F Source: [facility] 5:40 AM HEALTH SYSTEM REPOSITORY TYPE CODE TESTS RESULT OUT OF REFERENCE UNITS RANGE LAB PHOS(LOINC 2.5-4.9 mg/dL ) Phosphorus Blood 2.6 Performed By: #### PHOS #### [facility] [address] [place] [address] VANCOMYCIN,RANDOM Collected: Status: F Source: [place] 02/04/2018 5:27 AM [facility] REPOSITORY TYPE CODE TESTS RESULT OUT OF RANGE REFERENCE UNITS LAB VANCR(LOINC mg/L ) 11.9 Vancomycin,R andom Result Comment: Trough 10.0-20.0 mg/L Peak 18.0-40.0 mg/L Performed By: #### VANCR #### [facility] [address] [id number] PROGRESS Observed: 02/03/2018 Status: COMPLETED Source: [place] 11:38 PM CLINIC OTHER [place] REPOSITORY HNO ID: [id number] Author: Kelsey TylerRn) Becki RN Service: Dialysis Author Type: Registered Nurse Type: Progress Notes Filed: 02/03/2018 11:39 PM Note Text: Hemodialysis x 3.5 hours with 4K bath; Tolerated fair. BP 79-120's. Removed = -800; R femoral CVC capped AND locked with heparin per lumen Fill volume. Report given. PROGRESS Observed: 02/03/2018 Status: COMPLETED Source: [place] 1:44 PM [facility] OTHER [place] REPOSITORY HNO ID: [id number] Author: Abbi TylerRn) MAGALY Mtz Service: Wound Care Team Author Type: Registered Nurse Type: Progress Notes Filed: 02/03/2018 2:22 PM Note Text: WOUND CARE NURSE PROGRESS NOTE SERVICE DATE: 02/03/2018 SERVICE TIME: 1344 REASON FOR VISIT: Wound TIME SPENT (minutes): 45 Patient seen for wound care follow-up visit for midline abdominal wound vac dressing change. KEON Carrillo, at bedside and visualized wound. Discussed the increase in wound drainage. No significant changes to wound bed. Drainage during dressing change was clear, yellow, serous drainage. Applied 3 white foam to wound bed, covered with 2 black foam, set at 150mmHg, continuous. Plan to change wound vac dressing next on Tuesday02/07/18. If wound vac malfunctions and bedside RN unable to correct call wound care ([phone]) or [facility] (number located on wound vac machine). If still unable to correct, bedside RN must remove wound vac dressing and foam, apply normal saline wet to dry dressing BID. Call physician and wound care to notify. Change canister once a week and PRN when full. Documentation from Wound Expert can be found in scanned documents. SIGNATURE: Abbi Mtz RN CWOCN PATIENT NAME: Naveen Akins DATE: February 03, 2018 TIME: 2:19 PM CONTACT#: [id number] CT ABDOMEN AND PELVIS Observed: 02/03/2018 Status: F Source: [facility] W/O CONTRAST 1:15 PM HEALTH SYSTEM REPOSITORY Performed at [facility] APPROVED BY: Skip Hickey MD EXAMINATION: CT ABDOMEN AND PELVIS WITHOUT IV CONTRAST CLINICAL HISTORY: Status post abdominal aortic aneurysm repair, status post multiple washouts, febrile, increasing white blood cell count. TECHNIQUE: Non-IV contrast imaging of the abdomen and pelvis was performed using standard technique, scanning from just above the dome of the diaphragm to the symphysis pubis. Sagittal and coronal solomon nstructions were performed. Unenhanced imaging is limited for the evaluation of some intra-abdominal and pelvic pathology. M: [id number] Contrast: None CT Dose-Length Product: 1160.79 mGy*cm CT Dose Reduction Employed: 1. Automated exposure control (AEC) was used. COMPARISON: None. RESULT: Abdomen / Pelvis: Lower thorax: There are patchy airspace opacities in the dependent portion of both lower lobes which may represent areas of atelectasis and/or consolidation. There is a central venous catheter terminat ing in the distal superior vena cava. Liver: Unremarkable. Normal liver morphology. Biliary: Gallbladder is absent. No biliary dilatation. Spleen: No splenomegaly. Pancreas: Unremarkable. Adrenals: No mass. Kidneys: No calculus, hydronephrosis or finding to suggest a cyst or mass in the unenhanced kidney. GI Tract: There is a PEG tube within the stomach. There are no dilated loops of large or small bowel. There are few diverticula within the sigmoid colon. There is a fecal management device within the rectum. Lymph Nodes: No lymphadenopathy. Mesentery/peritoneum: Small amount of ascites in the paracolic gutters and pelvis. There is an abdominal wound midline of the abdomen. Retroperitoneum and vasculature: There are surgical clips adjacent to the aorta likely related to graft repair of abdominal aortic aneurysm. There is a fluid collection surrounding the graft and extend ing to the left side of the pelvis this fluid collection measures the density of simple fluid. Differential for this collection would include seroma or other postoperative fluid collection. This study was performed without contrast limiting evaluation for an aortic leak. Since the density of this fluid measures simple fluid density acute hemorrhage is felt to be less likely although not excluded. Whether this collection is sterile or infected cannot be determined. Pelvis: Bladder is unremarkable. Bones/Soft Tissues: No acute abnormality. IMPRESSION: There are patchy airspace opacities in both lower lobes which may represent areas of atelectasis and/or pneumonia. The patient is status post graft repair of an infrarenal abdominal aortic aneurysm. There is a fluid collection surrounding the graft and extending into the left pelvis. Whether this collection is janice rile or infected cannot be determined on this study. Differential for this would include seroma or other postoperative fluid collections. The density of this fluid measures simple fluid density sugges ting against an acute bleed, however an acute bleed cannot be entirely excluded. Depending on the clinical concern a contrast-enhanced CT could be considered for further evaluation. Small amount of ascites within the abdomen and pelvis. Findings were discussed by phone with Dr. Dionicio Stevens on 02/03/2018 at 5:00 PM. CASE MANAGEM Observed: 02/03/2018 Status: COMPLETED Source: [place] 11:38 AM [facility] OTHER CAMPUS REPOSITORY [facility] ID: [id number] Author: Lupe (Magaly) MAGALY Cheng Service: Care Management Author Type: Registered Nurse Type: Care Mgt Progress Note Filed: 02/03/2018 11:54 AM Note Text: CARE MANAGEMENT PROGRESS NOTE SERVICE DATE: 02/03/2018 SERVICE TIME: 11:39 AM LOS: 22 days Needs Prior to Discharge: To Be Determined ([facility] able to accept patient) Chart reviewed. Spoke with patient's spouse Shelly and patient's son Manjit in the waiting area. First choice for LTACH at this time is [facility]. Although Shelly states patient's family will be touring all LTACH facilities this weekend. hydroponics worker Jenna Orozco updated. Will continue to follow clinical course for further DC planning needs. SIGNATURE: Lupe Cheng RN PATIENT NAME: Naveen Akins DATE: February 03, 2018 TIME: 11:39 AM PAGER/CONTACT #: [phone] Observed: 02/03/2018 Status: F Source: [facility] 11:30 AM HEALTH SYSTEM RESPIRATORY REPOSITORY Test performed at [facility] Few normal oropharyngeal john Moderate Gram negative bacilli Few Gram positive cocci Many Polymorphonuclear leukocytes ORGANISM: Ach xylosoxidans ssp xylosoxidans (ID: 1) Moderate ORGANISM: Enterobacter cloacae (ID: 2) Few Performed By: #### C_RES #### [facility] [address] [place], [place] [address] PROGRESS Observed: 02/03/2018 Status: COMPLETED Source: [place] 9:25 AM CLINIC OTHER CAMPUS REPOSITORY HNO ID: [id number] Author: Vicky Devi MD Service: Nephrology Author Type: Physician Type: Progress Notes Filed: 02/03/2018 9:26 AM Note Text: Nephrology Progress Note Following for TERENCE. Pt is trached. Remains on ventilator. On FIO2 3%. Off BP pressros Cannot do ROS. Current Inpatient Medications: Current Facility-Administered Medications Ordered in Epic: magnesium oxide 400 mg tab(s) (MAG-OX) 400 mg ORAL BID Dionicio (Res) Stevens potassium chloride iv piggyback 20 mEq in sterile water 100 mL 20 mEq INTRAVENOUS ONCE Lora Soliz calcium gluconate 1 g injection 1 g INTRAVENOUS ONCE Lora Soliz vancomycin 1.5 g in D5W 250 mL (VANCOCIN) 1.5 g INTRAVENOUS ONCE Lora Soliz Parenteral Nutrition - Adult INTRAVENOUS ONCE TPN (1800 START) H Edwin Dudley Last Rate: 62.5 mL/hr at 02/02/18 1930 NORepinephrine 16 mg in D5W 250 mL (LEVOPHED) 0.6-30 mcg/min INTRAVENOUS CONTINUOUS Issac Contreras Stopped at 02/03/18 0430 meropenem 500 mg in NaCl 0.9% 100 mL MB+ (MERREM) 500 mg INTRAVENOUS q 12 H Lora Soliz Last Rate: 200 mL/hr at 02/02/18 2107 500 mg at 02/02/18 210 midodrine (PROAMITINE) tab(s) 15 mg 15 mg PEG q 8 H Lora Soliz 15 mg at 02/03/18 0643 pantoprazole 40 mg injection (PROTONIX) 40 mg INTRAVENOUS DAILY (6 AM) Lora Soliz 40 mg at 02/03/18 0643 carboxymethylcellulose sodium 1-2 Drop (CELLUVISC) 1-2 Drop BOTH EYES TID Lora Soliz 1 Drop at 02/03/18 0916 0.9% NaCl 10 mL 10 mL INTRAVENOUS q 12 H Lora Soliz 10 mL at 02/03/18 0921 0.9% NaCl 20 mL 20 mL INTRAVENOUS PRN Lora Soliz ipratropium-albuterol 3 mL nebulizer solution (DUONEB) 3 mL INHALATION QID Lora Soliz 3 mL at 02/03/18 0832 metoclopramide HCl 5 mg injection (REGLAN) 5 mg INTRAVENOUS q 12 H Lora Soliz 5 mg at 02/02/18 2107 0.9% NaCl 10 mL 10 mL INTRAVENOUS q 12 H Dionicio (Res) Stevens 10 mL at 02/03/18 0900 0.9% NaCl 20 mL 20 mL INTRAVENOUS PRN Dionicio (Res) Stevens magnesium sulfate in water 2 g in sterile water 50 ml 2 g INTRAVENOUS PRN Maggi (Res) Verg[place]se fentaNYL 50 mcg/mL 25-50 mcg injection (SUBLIMAZE) 25-50 mcg INTRAVENOUS q 2 H PRN Venkat [place] 50 mcg at 02/03/18 0035 budesonide 0.5 mg/2 mL 0.5 mg (PULMICORT) 0.5 mg INHALATION BID Dorcas Mike Decoy 0.5 mg at 02/03/18 0834 senna leaf extract 176 mg/5 mL 528 mg 15 mL OROGASTRIC BID Dionicio (Res) Stevens 528 mg at 02/02/18 2108 carboxymethylcellulose sodium 1-2 Drop (CELLUVISC) 1-2 Drop BOTH EYES PRN Venkat [place] 2 Drop at 01/26/18 1625 polyvinyl alcohol-povidone 1.4-0.6 % 1 Drop (REFRESH) 1 Drop BOTH EYES QID PRN Paulo (Meter Repair Shop Supervisor) [place] 1 Drop at 01/26/18 1724 heparin 1,000 unit/mL 4,000 Units injection 4,000 Units INTRAVENOUS 3 Times weekly with dialysis Troy Godoy 2,800 Units at 01/30/18 1710 heparin 5,000 Units injection 5,000 Units SUBCUTANEOUS q 12 H Venkat Paniagua 5,000 Units at 02/02/18 2107 dextrose 40 % 15 g 15 g ORAL PRN Jack Regula Or glucagon 1 mg injection (GLUCAGEN) 1 mg INTRAMUSCULAR PRN Jack Regula Or dextrose 50% in water 25 mL syringe 12.5 g INTRAVENOUS PRN Jack Regula Chlorhexidine Gluconate 0.12 % 15 mL (PERIDEX) 15 mL ORAL q 12 H Elder Yu) Kalee 15 mL at 02/03/18 0920 No current Epic-ordered outpatient prescriptions on file. Vitals: BP 112/56 Pulse 105 Temp 36.9 ?C (98.4 ?F) (Temporal Artery) Resp 29 Ht 172.7 cm (5' 7.99) Wt 83.4 kg (183 lb 13.8 oz) SpO2 99% BMI 27.96 kg/m? BLOOD PRESSURE RANGE: Systolic (24hrs), Av , Min:108 , Max:108 ; Diastolic (24hrs), Av, Min:53, Max:53 24HR INTAKE/OUTPUT: Intake/Output Summary (Last 24 hours) at 02/03/18 0925 Last data filed at 02/03/18 0600 Gross per 24 hour Intake 3534 ml Output 3912 ml Net -378 ml Physical exam: Constitutional: NAD? Skin: no rash, turgor wnl Heent: Trached Neck: no bruits or jvd noted Cardiovascular: ?S1, S2 normal without m/r/g Respiratory: Coarse breath sound bilaterally Abdomen: ?+bs, soft, nt, nd Ext: +1 ?lower extremity edema Data: Labs: Recent Labs 02/03/18 0445 02/02/18 0500 02/01/18 0400 WBC 18.71* 12.77* 10.77* HB 7.7* 7.8* 8.0* HCT 24.2* 24.1* 24.8* MCV 90.0 88.0 86.7 PLT 231 240 215 Recent Labs 02/03/18 0445 02/02/18 0500 02/01/18 0400 NA 141 142 140 K 3.4* 2.8* 3.6 CO2 26 24 24 MG 1.4* 1.8 1.9 BUN 56* 88* 59* CREAT 2.87* 3.29* 2.32* CA 6.2* 6.9* 7.0* Assessment and Plan 1. Acute kidney injury on chronic kidney disease stage 3. Baseline SCr is 1.36 mg/dL on 11/14/17. CKD is likely due to nephrosclerosis related to PAD. TERENCE is secondary to ischemic ATN from shock.CVVHDF was stopped 01/31. Off NE gtt. Pt is non oliguric. UOP is 700 cc in the last 24 hours.Last HD session 02/02 No need of HD session today. Will evaluate the need of HD session tomorrow Will continue to monitor for kidney function recovery. Keep MAP > 65 ? 2. Shock. Stable. Initially due to hemorrhagic shock-massive blood loss from ruptured AAA +/- adrenal insufficiency. Currently off NE gtt. On hydrocortisone. ? 3. Ruptured AAA. s/p repair 01/12/18. Management as per vascular surgery. ? 4. Acute hypoxic respiratory failure. Ventilator dependent. Vent management as per pulmonary/CCM. ? 5. Encephalopathy. Neuro evaluation in progress. Eventual MRI. ? Renal team will continue to follow VICKY DEVI MD Observed: 02/03/2018 Status: F Source: [facility] BLOOD 9:20 AM HEALTH SYSTEM REPOSITORY Test performed at [facility] No growth Performed By: #### C_BLO #### [place] [address] PROGRESS Observed: 02/03/2018 Status: COMPLETED Source: [place] 9:06 AM [facility] OTHER CAMPUS REPOSITORY HNO ID: [id number] Author: Paulo Lovelace (Cns) Service: Critical Care Author Type: Nurse Specialist Type: Progress Notes Filed: 02/03/2018 9:18 AM Note Text: MICU - PROGRESS NOTE SERVICE DATE: 02/03/2018 SERVICE TIME: 9:06 AM Admission Date: 01/12/2018 AGE: [id number] year old LOS: 22 days Subjective REASON FOR ICU ADMISSION: Respiratory Failure Objective PROBLEMS: ACTIVE PROBLEM LIST Gallstone Pancreatitis Ruptured Abdominal Aortic Aneurysm (Aaa) (Hcc) Dic (Disseminated Intravascular Coagulation) (Hcc) Acute Respiratory Failure (Hcc) Cardiac Arrest (Hcc) Hypokalemia Hypomagnesemia Hypophosphatemia Anoxic Encephalopathy (Hcc) Aaa (Abdominal Aortic Aneurysm, Ruptured) (Hcc) Obesity, Class I, Bmi 30-34.9 Terence (Acute Kidney Injury) (Hcc) Ileus (Hcc) Acute Liver Failure Without Hepatic Coma PAST MEDICAL HISTORY Diagnosis Date - DIC (disseminated intravascular coagulation) (HCC) 01/12/2018 PAST SURGICAL HISTORY Procedure Laterality Date - LAP CHOLECYSTECT/CHOLANGIOGRAPHY 05-28-09 - PICC LINE INSERTION (PICC TEAM) (AK) 01/31/2018 - PICC LINE INSERTION (PICC TEAM) (AK) 02/01/2018 - REPAIR UMBILICAL NATAN,5+Y/O,REDUC 05-28-09 Social History Marital status: Spouse name: Shelly Years of education: 11 Number of children: 4 Occupational 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 BP 112/56 Pulse 105 Temp (Src) 98.4 (Temporal Artery) Resp 29 Ht 5' 7.992 (1.73m) Wt 183 lb 13.8 oz (83.4kg) SpO2 99% BMI 27.96 kg/(m2). Temp (24hrs), Av.1 ?C (98.7 ?F), Min:35.7 ?C (96.3 ?F), Max:38.1 ?C (100.6 ?F) NET FLUID BALANCE Intake/Output Summary (Last 24 hours) at 02/03/18 0906 Last data filed at 02/03/18 0600 Gross per 24 hour Intake 3534 ml Output 3912 ml Net -378 ml MEDICATIONS Current Facility-Administered Medications: magnesium oxide 400 mg tab(s) (MAG-OX) 400 mg ORAL BID potassium chloride iv piggyback 20 mEq in sterile water 100 mL 20 mEq INTRAVENOUS ONCE calcium gluconate 1 g injection 1 g INTRAVENOUS ONCE vancomycin 1.5 g in D5W 250 mL (VANCOCIN) 1.5 g INTRAVENOUS ONCE Parenteral Nutrition - Adult INTRAVENOUS ONCE TPN (1800 START) NORepinephrine 16 mg in D5W 250 mL (LEVOPHED) 0.6-30 mcg/min INTRAVENOUS CONTINUOUS meropenem 500 mg in NaCl 0.9% 100 mL MB+ (MERREM) 500 mg INTRAVENOUS q 12 H midodrine (PROAMITINE) tab(s) 15 mg 15 mg PEG q 8 H pantoprazole 40 mg injection (PROTONIX) 40 mg INTRAVENOUS DAILY (6 AM) carboxymethylcellulose sodium 1-2 Drop (CELLUVISC) 1-2 Drop BOTH EYES TID 0.9% NaCl 10 mL 10 mL INTRAVENOUS q 12 H 0.9% NaCl 20 mL 20 mL INTRAVENOUS PRN ipratropium-albuterol 3 mL nebulizer solution (DUONEB) 3 mL INHALATION QID metoclopramide HCl 5 mg injection (REGLAN) 5 mg INTRAVENOUS q 12 H 0.9% NaCl 10 mL 10 mL INTRAVENOUS q 12 H 0.9% NaCl 20 mL 20 mL INTRAVENOUS PRN magnesium sulfate in water 2 g in sterile water 50 ml 2 g INTRAVENOUS PRN fentaNYL 50 mcg/mL 25-50 mcg injection (SUBLIMAZE) 25-50 mcg INTRAVENOUS q 2 H PRN budesonide 0.5 mg/2 mL 0.5 mg (PULMICORT) 0.5 mg INHALATION BID senna leaf extract 176 mg/5 mL 528 mg 15 mL OROGASTRIC BID carboxymethylcellulose sodium 1-2 Drop (CELLUVISC) 1-2 Drop BOTH EYES PRN polyvinyl alcohol-povidone 1.4-0.6 % 1 Drop (REFRESH) 1 Drop BOTH EYES QID PRN heparin 1,000 unit/mL 4,000 Units injection 4,000 Units INTRAVENOUS 3 Times weekly with dialysis heparin 5,000 Units injection 5,000 Units SUBCUTANEOUS q 12 H dextrose 40 % 15 g 15 g ORAL PRN Or glucagon 1 mg injection (GLUCAGEN) 1 mg INTRAMUSCULAR PRN Or dextrose 50% in water 25 mL syringe 12.5 g INTRAVENOUS PRN Chlorhexidine Gluconate 0.12 % 15 mL (PERIDEX) 15 mL ORAL q 12 H Lines, Drains, and Airways Line Dialysis / Apheresis Double Lumen 01/24/18 1400 Non-tunneled Right Groin 9 days Central Line Double Lumen 02/01/18 0815 Peripherally Inserted (PICC) Left Arm 2 days Drain Drain/Tube 01/19/18 1015 Midline Abdomen 14 days GI Feed/Drain 01/27/18 Assessment Gastrostomy 7 days Drain/Tube 02/02/18 0300 Fecal Management System Rectum 1 day Condom Catheter 02/02/18 2200 less than 1 day Airway Airway Tracheostomy 01/27/18 7 days PHYSICAL EXAM PERFORMED: Cardiovascular: Regular rhythm Respiratory: Reduced breath sounds bilat %FIO2 Min: 30 Max: 35 Abdomen: Distended Extremities: Edema- Yes Some improvement in anasarca Neurologic: Unresponsive Persistent vegetative state Respiratory/Nursing Documentation: O2 Therapy: Ventilator (02/03/18831) Invasive Ventilator Mode: Assist Control (02/03/18831) Set Ventilator Respiratory Rate (BPM): 16 (02/03/18831) Total Respiratory Rate (BPM): 37 (02/03/18831) Tidal Volume Set (mL): 500 (02/03/18831) Exhaled Tidal Volume (mL): 323 (02/03/18831) Minute Volume (L): 15.5 (02/03/18831) Peak Inspiratory Pressure (cm H2O): 18 (02/03/18831) PEEP/CPAP (cm H2O): 5 (02/03/18831) HEMODYNAMIC DATA: Reviewed NUTRITION: Enteral Feeds: Yes TPN DATA: Diagnostic tests reviewed for today's visit, films/specimens were personally reviewed by me: Most recent labs and imaging results. LABS: Recent Labs 02/03/18 0445 WBC 18.71* RBC 2.69* HB 7.7* HCT 24.2* MCV 90.0 PLT 231 GLUC 132* BUN 56* CREAT 2.87* NA 141 K 3.4* CHLOR 106 CO2 26 CA 6.2* MG 1.4* ABG: Recent Labs 01/31/18 1035 PH 7.523* PO2 156.7* PCO2 29.6* Assessment/Plan IMPRESSION: Critical Care Documentation: The patient has the following organ/system impairment(s): 1.Acute hypoxic respiratory failure/ARDS/Bilat pleuaral effusions-remains intubated on 40% FIO2-periodic Seth Smith respirations 2. Ruptured AAA ?Sp repair-Wound closed vac in place -drained 450ml lorenzo colored drainage overnight 3.SP cardiac arrest 4.Shock-Levophed support is off 5. Pt is nonresponsive-even to noxious stimuli-Encephalopathy 6.Thrombocytopenia improving-platelet 230,000 7.Nutritional support-TPN 8.Sinus tachycardia-SVT resolved-frequent PACs this AM 9.TERENCE on CKD 10. Fentanyl drip is off 11. Ileus/gastroparesis-Reglan 12. Acute blood loss anemia-Hgb is 7.7 GM 13.Hyperlipidemia improving 14.Trach /PEG 15.Febrile today at 38.3C 16. Slight worsening of leukocytosis 17.Possible dialysis catheter today 18.Select soon ? ? This patient has a high probability of sudden, clinically significant deterioration, which requires the highest level of physician preparedness to intervene urgently. I managed/supervised life or organ supporting interventions that required frequent physician assessment. I devoted my full attention to the direct care of this patient for the amount of time indicated below. Time I spent with family or surrogate(s) is included only if the patient was incapable of providing the necessary information or participating in medical decision making. Time devoted to teaching is not included. Discussed with staff/patient/family Time spent providing critical care services: 40 minutes excluding procedures. SIGNATURE: Paulo Lovelace APRN.MAINTENANCE TEAM MEMBER PATIENT NAME: Naveen Akins DATE: February 03, 2018 TIME: 9:06 AM PROGRESS Observed: 02/03/2018 Status: COMPLETED Source: [place] 8:11 AM CLINIC OTHER CAMPUS REPOSITORY O ID: [id number] Author: Lora Soliz Service: Critical Care Author Type: Physician Type: Progress Notes Filed: 02/03/2018 8:20 AM Note Text: MICU - PROGRESS NOTE SERVICE DATE: 02/03/2018 SERVICE TIME: 8:11 AM Admission Date: 01/12/2018 AGE: [id number] year old LOS: 22 days REASON FOR ICU ADMISSION: Electrolyte Imbalance, Renal Failure and S/P Surgery Objective Obtunded, anoxic Fever 38, low grade HR 90 ok Some UO Inc wound vac output 350cc Mild tachypnea simv Off norepi Off steroids SAJAN TF, npo now PAST MEDICAL HISTORY Diagnosis Date - DIC (disseminated intravascular coagulation) (HCC) 01/12/2018 PAST SURGICAL HISTORY Procedure Laterality Date - LAP CHOLECYSTECT/CHOLANGIOGRAPHY 05-28-09 - PICC LINE INSERTION (PICC TEAM) (AK) 01/31/2018 - PICC LINE INSERTION (PICC TEAM) (AK) 02/01/2018 - REPAIR UMBILICAL NATAN,5+Y/O,REDUC 05-28-09 Social History Marital status: Spouse name: Shelly Years of education: 11 Number of children: 4 Occupational 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 BP 112/56 Pulse 105 Temp (Src) 98.4 (Temporal Artery) Resp 29 Ht 5' 7.992 (1.73m) Wt 183 lb 13.8 oz (83.4kg) SpO2 99% BMI 27.96 kg/(m2). Temp (24hrs), Av.9 ?C (98.5 ?F), Min:35.7 ?C (96.3 ?F), Max:38.1 ?C (100.6 ?F) NET FLUID BALANCE Intake/Output Summary (Last 24 hours) at 02/03/18 0811 Last data filed at 02/03/18 0600 Gross per 24 hour Intake 3534 ml Output 3912 ml Net -378 ml MEDICATIONS Current Facility-Administered Medications: magnesium oxide 400 mg tab(s) (MAG-OX) 400 mg ORAL BID potassium chloride iv piggyback 20 mEq in sterile water 100 mL 20 mEq INTRAVENOUS ONCE vancomycin 1.25 g in D5W 250 mL (VANCOCIN) 1.25 g INTRAVENOUS ONCE Parenteral Nutrition - Adult INTRAVENOUS ONCE TPN (1800 START) NORepinephrine 16 mg in D5W 250 mL (LEVOPHED) 0.6-30 mcg/min INTRAVENOUS CONTINUOUS meropenem 500 mg in NaCl 0.9% 100 mL MB+ (MERREM) 500 mg INTRAVENOUS q 12 H midodrine (PROAMITINE) tab(s) 15 mg 15 mg PEG q 8 H pantoprazole 40 mg injection (PROTONIX) 40 mg INTRAVENOUS DAILY (6 AM) carboxymethylcellulose sodium 1-2 Drop (CELLUVISC) 1-2 Drop BOTH EYES TID 0.9% NaCl 10 mL 10 mL INTRAVENOUS q 12 H 0.9% NaCl 20 mL 20 mL INTRAVENOUS PRN ipratropium-albuterol 3 mL nebulizer solution (DUONEB) 3 mL INHALATION QID metoclopramide HCl 5 mg injection (REGLAN) 5 mg INTRAVENOUS q 12 H 0.9% NaCl 10 mL 10 mL INTRAVENOUS q 12 H 0.9% NaCl 20 mL 20 mL INTRAVENOUS PRN magnesium sulfate in water 2 g in sterile water 50 ml 2 g INTRAVENOUS PRN calcium gluconate 4 g in NaCl 0.9% 250 mL 4 g INTRAVENOUS PRN fentaNYL 50 mcg/mL 25-50 mcg injection (SUBLIMAZE) 25-50 mcg INTRAVENOUS q 2 H PRN budesonide 0.5 mg/2 mL 0.5 mg (PULMICORT) 0.5 mg INHALATION BID senna leaf extract 176 mg/5 mL 528 mg 15 mL OROGASTRIC BID carboxymethylcellulose sodium 1-2 Drop (CELLUVISC) 1-2 Drop BOTH EYES PRN polyvinyl alcohol-povidone 1.4-0.6 % 1 Drop (REFRESH) 1 Drop BOTH EYES QID PRN heparin 1,000 unit/mL 4,000 Units injection 4,000 Units INTRAVENOUS 3 Times weekly with dialysis heparin 5,000 Units injection 5,000 Units SUBCUTANEOUS q 12 H dextrose 40 % 15 g 15 g ORAL PRN Or glucagon 1 mg injection (GLUCAGEN) 1 mg INTRAMUSCULAR PRN Or dextrose 50% in water 25 mL syringe 12.5 g INTRAVENOUS PRN Chlorhexidine Gluconate 0.12 % 15 mL (PERIDEX) 15 mL ORAL q 12 H Lines, Drains, and Airways Line Dialysis / Apheresis Double Lumen 01/24/18 1400 Non-tunneled Right Groin 9 days Central Line Double Lumen 02/01/18 0815 Peripherally Inserted (PICC) Left Arm 1 day Drain Drain/Tube 01/19/18 1015 Midline Abdomen 14 days GI Feed/Drain 01/27/18 Assessment Gastrostomy 7 days Drain/Tube 02/02/18 0300 Fecal Management System Rectum 1 day Condom Catheter 02/02/18 2200 less than 1 day Airway Airway Tracheostomy 01/27/18 7 days Respiratory/Nursing Documentation: O2 Therapy: Ventilator (02/03/18334) Invasive Ventilator Mode: Synchronized Intermittent Mandatory Ventilation;Pressure Support Ventilation (02/03/18334) Set Ventilator Respiratory Rate (BPM): 10 (02/03/18334) Total Respiratory Rate (BPM): 24 (02/03/18334) Tidal Volume Set (mL): 500 (02/03/18334) Exhaled Tidal Volume (mL): 458 (02/03/18334) Minute Volume (L): 12.6 (02/03/18334) Peak Inspiratory Pressure (cm H2O): 20 (02/03/18334) PEEP/CPAP (cm H2O): 5 (02/03/18334) HEMODYNAMIC DATA: reviewed NUTRITION: tpn Enteral Feeds: sajan 20 hr now npo VENT: 30/5 simv 24 hrs WEANS: no psv SEDATION: off DRIPS: PRESSORS: none CULTURE update: CXR FINDINGS: OTHER IMAGING: DATA: Diagnostic tests reviewed for today's visit: Most recent labs and imaging results REVIEWED. LABS: Recent Labs 02/03/18 0445 WBC 18.71* RBC 2.69* HB 7.7* HCT 24.2* MCV 90.0 PLT 231 GLUC 132* BUN 56* CREAT 2.87* NA 141 K 3.4* CHLOR 106 CO2 26 CA 6.2* MG 1.4* ABG: Recent Labs 01/31/18 1035 PH 7.523* PO2 156.7* PCO2 29.6* Assessment/Plan PROBLEMS: Patient Active Hospital Problem List: Ruptured abdominal aortic aneurysm (AAA) ([facility]) (01/12/2018) DIC (disseminated intravascular coagulation) ([facility]) (01/12/2018) Acute respiratory failure ([facility]) (01/12/2018) Cardiac arrest ([facility]) (01/12/2018) Anoxic encephalopathy ([facility]) (01/13/2018) AAA (abdominal aortic aneurysm, ruptured) ([facility]) (01/12/2018) Obesity, Class I, BMI 30-34.9 (01/16/2018) TERENCE (acute kidney injury) ([facility]) (01/30/2018) Ileus ([facility]) (01/30/2018) Acute liver failure without hepatic coma (01/30/2018) AAA rupture with msof, multiple reops, now fascial closure, inc wound vac output LOW grade fevers, mild inc wbc on merrum; picc ok/new; fi02 stable; wound grossly ok. Groin line ok exit resolved hypotension/?shock, increased ?Midodrine and gave rbc to assist BP Severe anoxic enceph POOR OUTLOOK TERENCE on NURSE'S ASSISTANT, controlled azotemia but higher off cvvhd, resume HD Recovered thrombocytopenia Vent dep resp failure Trach Peg Ileus/ gastroparesis some better now mucosal TF until npo Wound issues with wound vac Enterobacter LRTI , cxr fairly clear now; Left infiltrate better; merrum and peritonitis likely post washout Shock Critical illness adrenal insuff, off steroid taper now Liver failure, cholestasis and post arrest shock hepatitis, mild improvement Hyperlipidemia TG 490, none in TPN, now down 336 Severe anemia ?7.2, now 7.8 after 1 rbc Resolved ple effusions Very prominent [place] 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 ? CRITICAL CARE PLAN: 1. psv trials failed, failed?sbt but 18?days vent; ?[place] periodic breathing on psv?due to service architect; try SIMV knowing typically inferior but has apnea at times 2. Tpn at 1700kcal /day, low TF; reglan noted (EKG qtc 480) so?decrease #; prealb 23; 3. HD; fluid even; new dialysis cath at some point with groin line > 2weeks and low fevers 4. Tapered off steroids hydrocortisone 25mg 5. merrum thru 02/04 noted and planned to stop after long course; reculture and give vanco one dose 6. 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 Dcd betty ?>?10 days, off norepi 8. PICC done ,?new tunneled HD cath 9. Wound care? 10. REC: DNR, family been resistent per staff , I talked to son yesterday who acknowledged poor status and coma but is very spiritual.? ?11. calcium Critical Care Documentation: The patient has the following organ/system impairment(s): Acute blood loss, Acute kidney injury, Complex life-threatening medical problem(s), Encephalopathy and Respiratory failure (Acute, with Hypoxemia) This patient has a high probability of sudden, clinically significant deterioration, which requires the highest level of physician preparedness to intervene urgently. I managed/supervised life or organ supporting interventions that required frequent physician assessment. I devoted my full attention to the direct care of this patient for the amount of time indicated below. Time I spent with family or surrogate(s) is included only if the patient was incapable of providing the necessary information or participating in medical decision making. Time devoted to teaching is not included. Patient Updated No Family Updated Yes Discussed with Staff Yes Time spent providing critical care services: 30 minutes excluding billable procedures. SIGNATURE: Lora Soliz MD PATIENT NAME: Naveen Akins DATE: February 03, 2018 TIME: 8:11 AM PROGRESS Observed: 02/03/2018 Status: COMPLETED Source: [place] 6:23 AM CLINIC OTHER CAMPUS REPOSITORY HNO ID: [id number] Author: Dionicio Stevens Service: Vascular Surgery Author Type: Resident Type: Progress Notes Filed: 02/03/2018 5:29 PM Note Text: Attestation signed by Venkat Paniagua at 02/04/2018 9:51 AM The original plan for today was to place a tunneled dialysis catheter and remove his groin line. However in the face of fever and elevated white count we will get a CT scan of his abdomen to evaluate for any issues there and in addition I have discussed with nephrology fact that we would like to get him dialyzed again today so we can get his femoral line out and perhaps give him a 1 or 2 day holiday without aligned before placing the tunneled catheter. Vascular Surgery Progress Note SERVICE DATE: 02/03/2018 Vascular AND Thoracic Surgery Service Pager: For questions or concerns Mon-Fri 6a-5p please page [phone]. After 5pm and on Weekends and Holidays, please page [phone] if in ICU or [phone] if on RNF. Subjective SUBJECTIVE: Tmax 38.1 overnight Diet: Parenteral Nutrition - Adult DIET NPO Objective OBJECTIVE: Vitals: Temp (24hrs), Av.6 ?C (97.8 ?F), Min:35.6 ?C (96.1 ?F), Max:37.8 ?C (100 ?F) BP 105/53 Pulse 97 Temp 37.6 ?C (99.7 ?F) (Temporal Artery) Resp 26 Ht 172.7 cm (5' 7.99) Wt 88.5 kg (195 lb 1.7 oz) SpO2 99% BMI 29.67 kg/m? O2 Therapy: Ventilator IANDO: Date 02/02/18699 - 02/03/1865802/03/18699 - 02/04/18 0659 Shift 2078-5521 3504-3597 0528-6991 24 Hour Total 9056-5008 0124-0118 0755-9282 24 Hour Total I N T A K E IV 910 910 IVPB 250 250 Potassium IVPB 200 200 Calcium IVPB 250 250 NORepinephrine Volume 10 10 Meropenem (Merrem) 200 200 Irrigants 180 110 290 Irrigant/Flush Amount In (GI Feed/Drain 01/27/18 Assessment Gastrostomy) 180 110 290 Dialysis 900 900 Dialysis intake 900 900 Gastric Tube 186 305 491 Tube Feed Intake (I/O) (GI Feed/Drain 01/27/18 Assessment Gastrostomy) 186 305 491 Shift Total 2176 415 2591 O U T P U T Urine 10 436 130 576 Urine Not Saved 1 1 Tube Output ([REMOVED] Condom Catheter 01/31/18 1300 Assessment 02/02/18 2150) 10 375 385 Tube Output ( Condom Catheter 02/02/18 2200) 60 130 190 Drains 0 0 Negative Pressure: Output (mL) (Negative Pressure Wound Therapy 01/12/18 0749 Abdomen) 0 0 Tubes 0 150 150 Drain/Tube Output (Drain/Tube 01/19/18 1015 Midline Abdomen) 0 0 0 Drain/Tube Output (Drain/Tube 02/02/18 0300 Fecal Management System Rectum) 150 150 # of BMs Number of BMs 1 x 1 x 2 x Dialysis 2400 2400 Dialysis Output (Ultrafiltration) 2400 2400 Shift Total 10 2986 130 3126 Weight (kg) 85.6 88.5 88.5 88.5 88.5 88.5 88.5 88.5 MEDICATIONS Current Facility-Administered Medications: calcium gluconate 6 g in NaCl 0.9% 250 mL 6 g INTRAVENOUS ONCE potassium chloride iv piggyback 20 mEq in sterile water 100 mL 20 mEq INTRAVENOUS q 1 H magnesium oxide 400 mg tab(s) (MAG-OX) 400 mg ORAL BID Parenteral Nutrition - Adult INTRAVENOUS ONCE TPN (1800 START) NORepinephrine 16 mg in D5W 250 mL (LEVOPHED) 0.6-30 mcg/min INTRAVENOUS CONTINUOUS meropenem 500 mg in NaCl 0.9% 100 mL MB+ (MERREM) 500 mg INTRAVENOUS q 12 H midodrine (PROAMITINE) tab(s) 15 mg 15 mg PEG q 8 H pantoprazole 40 mg injection (PROTONIX) 40 mg INTRAVENOUS DAILY (6 AM) carboxymethylcellulose sodium 1-2 Drop (CELLUVISC) 1-2 Drop BOTH EYES TID 0.9% NaCl 10 mL 10 mL INTRAVENOUS q 12 H 0.9% NaCl 20 mL 20 mL INTRAVENOUS PRN ipratropium-albuterol 3 mL nebulizer solution (DUONEB) 3 mL INHALATION QID metoclopramide HCl 5 mg injection (REGLAN) 5 mg INTRAVENOUS q 12 H 0.9% NaCl 10 mL 10 mL INTRAVENOUS q 12 H 0.9% NaCl 20 mL 20 mL INTRAVENOUS PRN potassium chloride iv piggyback 20 mEq in sterile water 100 mL 20 mEq INTRAVENOUS PRN magnesium sulfate in water 2 g in sterile water 50 ml 2 g INTRAVENOUS PRN sodium phosphate 45 mmol in NaCl 0.9% 250 mL 45 mmol INTRAVENOUS PRN calcium gluconate 4 g in NaCl 0.9% 250 mL 4 g INTRAVENOUS PRN fentaNYL 50 mcg/mL 25-50 mcg injection (SUBLIMAZE) 25-50 mcg INTRAVENOUS q 2 H PRN budesonide 0.5 mg/2 mL 0.5 mg (PULMICORT) 0.5 mg INHALATION BID senna leaf extract 176 mg/5 mL 528 mg 15 mL OROGASTRIC BID carboxymethylcellulose sodium 1-2 Drop (CELLUVISC) 1-2 Drop BOTH EYES PRN polyvinyl alcohol-povidone 1.4-0.6 % 1 Drop (REFRESH) 1 Drop BOTH EYES QID PRN heparin 1,000 unit/mL 4,000 Units injection 4,000 Units INTRAVENOUS 3 Times weekly with dialysis heparin 5,000 Units injection 5,000 Units SUBCUTANEOUS q 12 H NaCl 0.9% 1,000 mL iv bolus 1,000 mL INTRAVENOUS PRN DIALYSIS dextrose 40 % 15 g 15 g ORAL PRN Or glucagon 1 mg injection (GLUCAGEN) 1 mg INTRAMUSCULAR PRN Or dextrose 50% in water 25 mL syringe 12.5 g INTRAVENOUS PRN magnesium sulfate 1 g in D5W 100 mL 1 g INTRAVENOUS PRN magnesium sulfate in water 2 g in sterile water 50 ml 2 g INTRAVENOUS PRN Chlorhexidine Gluconate 0.12 % 15 mL (PERIDEX) 15 mL ORAL q 12 H Labs: Recent Labs 02/03/18 0445 02/02/18 0500 02/01/18 0400 01/31/18 1035 NA 141 142 140 < > -- K 3.4* 2.8* 3.6 < > -- CHLOR 106 104 103 < > -- CO2 26 24 24 < > -- BUN 56* 88* 59* < > -- CREAT 2.87* 3.29* 2.32* < > -- GLUC 132* 160* 190* < > -- ANION 12 17* 17* < > -- CA 6.2* 6.9* 7.0* < > -- MG -- 1.8 1.9 < > -- P -- 4.9 4.6 -- -- WBC 18.71* 12.77* 10.77* < > -- HB 7.7* 7.8* 8.0* < > -- HCT 24.2* 24.1* 24.8* < > -- PLT 231 240 215 < > -- PH -- -- -- -- 7.523* PCO2 -- -- -- -- 29.6* PO2 -- -- -- -- 156.7* BE -- -- -- -- 1.1 < > = values in this interval not displayed. Exam: GENERAL: No distress NEURO: Opens eyes, no tracking, not following HEENT: normocephalic, atraumatic, Trach intact LUNGS: Unlabored breathing O2 Therapy: Ventilator CARDIAC: AFib, mild tachy ABDOMEN: Soft, non-tender, mildly distended, VAC, PEG, and retention sutures intact EXTREMITIES: MAK, No deformities, No edema, palpable pulses SKIN: Skin color, texture, turgor normal, No rashes or lesions ASSESSMENT AND PLAN: Active Hospital Problems Diagnosis Date Noted - Ruptured abdominal aortic aneurysm (AAA) ([facility]) 01/12/2018 - TERENCE (acute kidney injury) ([facility]) 01/30/2018 - Ileus ([facility]) 01/30/2018 - Acute liver failure without hepatic coma 01/30/2018 - Obesity, Class I, BMI 30-34.9 01/16/2018 - Anoxic encephalopathy (HCC) 01/13/2018 - DIC (disseminated intravascular coagulation) (HCC) 01/12/2018 - Acute respiratory failure (HCC) 01/12/2018 - Cardiac arrest (HCC) 01/12/2018 - AAA (abdominal aortic aneurysm, ruptured) (HCC) 01/12/2018 Overview Note: Added automatically from request for surgery [id number] 77 year old male with Ruptured AAA s/p Emergent Repair, takeback washout, repair of serosal tears x2, on 01/12, hemorrhagic shock, acute resp failure with pulm edema, TERENCE, SVT, s/p Third Look Laparotomy and?washout on 01/14, fourth look, washout, vac change on 01/16, Partial fascial closure on 01/19, Fascial closure/Retention Sutures on 01/21, Trach and PEG on 01/27 ? - Trach Vent mgmt per MICU - NPO/TPN, TFs via PEG - Acute blood loss and dilutional anemia and thrombocytopenia - monitor, stable - TERENCE -->?IHD?per?Nephro - Meropenum for E-bacter HCAP - Cont WV --> wound care following for VAC changes - Leukocytosis - trending up, steroids completed, cont Abx for HCAP, CT A+P - Acute blood loss/dilutional anemia - stable, monitor - Levo off - Sedation off - Reglan - LUE PICC - Hypocalcemia and kalemia - replacing - Code Status: family wants to maintain Full Code status - Select following for LTAC placement, likely dc next week - Tunneled HD Cath placement on hold now ?? Assessment and plan discussed with attending: Dr. Paniagua SIGNATURE: Dionicio Stevens MD PATIENT NAME: Naveen Akins DATE: February 03, 2018 TIME: 6:23 AM Vascular AND Thoracic Surgery Service Pager: For questions or concerns Tue-Tue 6a-5p please page [phone]. After 5pm and on Weekends and Holidays, please page [phone] if in ICU or [phone] if on RNF. IONIZED CALCIUM Collected: 02/03/2018 Status: F Source: [facility] 4:45 AM HEALTH SYSTEM REPOSITORY TYPE CODE TESTS RESULT OUT OF REFERENCE UNITS RANGE LAB CAION(LOINC 4.43-4.93 mg/dL ) Low Ionized 3.92 Calcium LAB PHCAI(LOINC 7.320-7.420 ) pH High 7.425 LAB CAPH(LOINC) 4.36-4.73 mg/dL Low Ionized 3.97 Ca,PH7.4 Performed By: #### IONCA #### [facility] [address] [address] HEMOGRAM/DIFF Collected: 02/03/2018 Status: F Source: [facility] 4:45 AM HEALTH SYSTEM REPOSITORY TYPE CODE TESTS RESULT OUT OF REFERENCE UNITS RANGE LAB WBC(LOINC) 4.23-9.07 thou/cmm WBC High 18.71 LAB RBC(LOINC) 4.63-6.08 mil/cmm Low RBC 2.69 LAB HGB(LOINC) 13.7-17.5 g/dL Low Hgb 7.7 LAB HCT(LOINC) 40.1-51.0 % Low Hct 24.2 LAB MCV(LOINC) 83.2-95.6 fl MCV 90.0 LAB MCH(LOINC) 25.7-32.2 pg MCH 28.6 LAB MCHC(LOINC 32.3-36.5 % ) Low MCHC 31.8 LAB RDW(LOINC) 11.6-14.4 % RDW High 19.2 LAB RDWSD(LOIN 36.1-45.8 fl C) RDW SD High 60.2 LAB PLT(LOINC) 141-365 thou/cmm Platelet 231 LAB MPV(LOINC) 8.7-12.0 fl MPV 11.1 LAB SEG(LOINC) % Seg Neutrophil 83.5 LAB IGRE(LOINC % ) Immature Grans 5.60 LAB LYMPH(LOIN % C) Lymphocyte 7.1 LAB MNO(LOINC) % Monocyte 3.0 LAB EOSIN(LOIN % C) Eosinophil 0.6 LAB BASO(LOINC % ) Basophil 0.2 LAB SEGN(LOINC 1.78-5.38 thou/cmm ) Abs. High Neut (ANC) 15.62 LAB IGAB(LOINC 0.00-0.05 thou/cmm ) Abs High Immature Grans 1.05 LAB LYMN(LOINC 0.84-2.85 thou/cmm ) Abs. Lymph 1.33 LAB MONON(LOIN 0.30-0.82 thou/cmm C) Abs. Rincon 0.56 LAB EOSN(LOINC 0.04-0.54 thou/cmm ) Abs. Eosin 0.11 LAB BASON(LOIN 0.01-0.08 thou/cmm C) Abs. Baso 0.04 Performed By: #### CBCD1 #### [place] [address] BASIC PANEL Collected: 02/03/2018 Status: F Source: [facility] 4:45 AM HEALTH SYSTEM REPOSITORY TYPE CODE TESTS RESULT OUT OF REFERENCE UNITS RANGE LAB NA(LOINC) 136-145 mEq/L Sodium Blood 141 LAB K(LOINC) 3.5-5.1 mEq/L Low Potassium Blood 3.4 LAB CL(LOINC) 98-107 mEq/L Chloride Blood 106 LAB CO2(LOINC) 21-32 mEq/L CO2 Blood 26 LAB GLU(LOINC) 70-99 mg/dL Glucose High Blood 132 LAB BUN(LOINC) 7-18 mg/dL BUN High Blood 56 LAB CREA(LOINC 0.67-1.17 mg/dL ) High Creatinine Blood 2.87 LAB CA(LOINC) 8.5-10.1 mg/dL Low Calcium Blood 6.2 LAB ANGAP(LOIN 8-16 C) Anion Gap 12 Performed By: #### P8 #### [place] [address] MAGNESIUM BLOOD Collected: 02/03/2018 Status: F Source: [facility] 4:45 AM HEALTH SYSTEM REPOSITORY TYPE CODE TESTS RESULT OUT OF REFERENCE UNITS RANGE LAB MAG(LOINC) 1.6-2.6 mg/dL Low Magnesium Blood 1.4 Performed By: #### MAG #### [place] [address] PHOSPHORUS BLOOD Collected: 02/03/2018 Status: F Source: [facility] 4:45 HEALTH SYSTEM REPOSITORY TYPE CODE TESTS RESULT OUT OF REFERENCE UNITS RANGE LAB PHOS(LOINC 2.5-4.9 mg/dL ) Low Phosphorus Blood 2.2 Performed By: #### PHOS #### [place] [id number] ALLIED [facility] Observed: 02/02/2018 Status: COMPLETED Source: [place] 1:00 PM [facility] REPOSITORY HNO ID: [id number] Author: Chaplain Serna (Chaplain) Service: Spiritual Care Author Type: Envelope Stamping Machine Operator Type: Allied Health Filed: 02/02/2018 2:26 PM Note Text: SPIRITUALCARE Spiritual Care Visit- Brief Note Name: Naveen Akins Date: February 02, 2018 Notes: Conversation w/pt's dtrs in the [place]--they are still hoping for a change in pt's status--they say he seems to offer them slender straws to grasp at. They also reported that there is some talk of moving him next week. Will continue to follow. Envelope Stamping Machine Operator Signature: Chaplain Daphne To contact the Spiritual Care Department: Please call [phone] or Page the On-Call Envelope Stamping Machine Operator at pager [phone] Thank you for the opportunity to be of service. This is an electronically created document. IF PRINTED, PLEASE DO NOT REMOVE FROM THE CHART OR MODIFY PRINTED COPY. PROGRESS Observed: 02/02/2018 Status: COMPLETED Source: [place] 12:33 PM [facility] REPOSITORY HNO ID: [id number] Author: Vicky Devi MD Service: Nephrology Author Type: Physician Type: Progress Notes Filed: 02/02/2018 12:35 PM Note Text: Nephrology Progress Note Following for TERENCE. Pt is trached. Remains on ventilator. On FIO2 35%. Off BP pressros Cannot do ROS. Current Inpatient Medications: Current Facility-Administered Medications Ordered in Epic: Parenteral Nutrition - Adult INTRAVENOUS ONCE TPN (1800 START) H Edwin Dudley Parenteral Nutrition - Adult INTRAVENOUS ONCE TPN (1800 START) H Edwin Dudley Last Rate: 62.5 mL/hr at 02/02/18 0730 meropenem 500 mg in NaCl 0.9% 100 mL MB+ (MERREM) 500 mg INTRAVENOUS q 12 H Lora Soliz Last Rate: 200 mL/hr at 02/02/18 0800 500 mg at 02/02/18 0800 midodrine (PROAMITINE) tab(s) 15 mg 15 mg PEG q 8 H Lora Soliz 15 mg at 02/02/18 0604 pantoprazole 40 mg injection (PROTONIX) 40 mg INTRAVENOUS DAILY (6 AM) Lora Soliz 40 mg at 02/02/18 0605 carboxymethylcellulose sodium 1-2 Drop (CELLUVISC) 1-2 Drop BOTH EYES TID Lora Soliz 1 Drop at 02/02/18 1300 0.9% NaCl 10 mL 10 mL INTRAVENOUS q 12 H Lora Soliz 10 mL at 02/02/18 0756 0.9% NaCl 20 mL 20 mL INTRAVENOUS PRN Lora Soliz ipratropium-albuterol 3 mL nebulizer solution (DUONEB) 3 mL INHALATION QID Lora Soliz 3 mL at 02/02/18 1205 metoclopramide HCl 5 mg injection (REGLAN) 5 mg INTRAVENOUS q 12 H Lora Soliz 5 mg at 02/02/18 0846 0.9% NaCl 10 mL 10 mL INTRAVENOUS q 12 H Dionicio (Res) Stevens 10 mL at 02/02/18 0900 0.9% NaCl 20 mL 20 mL INTRAVENOUS PRN Dionicio (Res) Stevens potassium chloride iv piggyback 20 mEq in sterile water 100 mL 20 mEq INTRAVENOUS PRN Maggi (Res) Verghese Last Rate: 100 mL/hr at 02/02/18 1050 20 mEq at 02/02/18 1050 magnesium sulfate in water 2 g in sterile water 50 ml 2 g INTRAVENOUS PRN Maggi (Res) Verghese sodium phosphate 45 mmol in NaCl 0.9% 250 mL 45 mmol INTRAVENOUS PRN Maggi (Res) Verghese Last Rate: 41.67 mL/hr at 01/29/18 0342 45 mmol at 01/29/18 0342 calcium gluconate 4 g in NaCl 0.9% 250 mL 4 g INTRAVENOUS PRN Maggi (Res) Verghese Last Rate: 62.5 mL/hr at 02/02/18 0745 4 g at 02/02/18 0745 fentaNYL 50 mcg/mL 25-50 mcg injection (SUBLIMAZE) 25-50 mcg INTRAVENOUS q 2 H PRN Venkat Paniagua 25 mcg at 02/01/18 0625 budesonide 0.5 mg/2 mL 0.5 mg (PULMICORT) 0.5 mg INHALATION BID Dorcas Mckeon Decoy 0.5 mg at 02/02/18 0840 senna leaf extract 176 mg/5 mL 528 mg 15 mL OROGASTRIC BID Dionicio (Res) Stevens 528 mg at 02/02/18 0800 carboxymethylcellulose sodium 1-2 Drop (CELLUVISC) 1-2 Drop BOTH EYES PRN Venkat Paniagua 2 Drop at 01/26/18 1625 polyvinyl alcohol-povidone 1.4-0.6 % 1 Drop (REFRESH) 1 Drop BOTH EYES QID PRN Paulo (Meter Repair Shop Supervisor) [place]udock 1 Drop at 01/26/18 1724 heparin 1,000 unit/mL 4,000 Units injection 4,000 Units INTRAVENOUS 3 Times weekly with dialysis Troy Godoy 2,800 Units at 01/30/18 1710 heparin 5,000 Units injection 5,000 Units SUBCUTANEOUS q 12 H Mervin (Res) Wally 5,000 Units at 02/02/18 0845 NaCl 0.9% 1,000 mL iv bolus 1,000 mL INTRAVENOUS PRN DIALYSIS Shen Lorenzo 1,000 mL at 01/26/18 1116 dextrose 40 % 15 g 15 g ORAL PRN Jack Regula Or glucagon 1 mg injection (GLUCAGEN) 1 mg INTRAMUSCULAR PRN Jack Regula Or dextrose 50% in water 25 mL syringe 12.5 g INTRAVENOUS PRN Jack Regula magnesium sulfate 1 g in D5W 100 mL 1 g INTRAVENOUS PRN Emilie (Res) Cardella Last Rate: 100 mL/hr at 01/15/18 0016 1 g at 01/15/18 0016 magnesium sulfate in water 2 g in sterile water 50 ml 2 g INTRAVENOUS PRN Emilie (Res) Cardella Last Rate: 25 mL/hr at 01/13/18 1004 2 g at 01/13/18 1004 Chlorhexidine Gluconate 0.12 % 15 mL (PERIDEX) 15 mL ORAL q 12 H Elder Yu) Kalee 15 mL at 02/02/18 0759 No current Epic-ordered outpatient prescriptions on file. Vitals: BP 113/69 Pulse 99 Temp (!) 35.7 ?C (96.3 ?F) (Axillary) Resp (!) 35 Ht 172.7 cm (5' 7.99) Wt 85.6 kg (188 lb 11.4 oz) SpO2 100% BMI 28.70 kg/m? BLOOD PRESSURE RANGE: Systolic (24hrs), Av , Min:108 , Max:108 ; Diastolic (24hrs), Av, Min:53, Max:53 24HR INTAKE/OUTPUT: Intake/Output Summary (Last 24 hours) at 02/02/18 1233 Last data filed at 02/02/18 0730 Gross per 24 hour Intake 1337 ml Output 768 ml Net 569 ml Physical exam: Constitutional: NAD? Skin: no rash, turgor wnl Heent: Trached Neck: no bruits or jvd noted Cardiovascular: ?S1, S2 normal without m/r/g Respiratory: Coarse breath sound bilaterally Abdomen: ?+bs, soft, nt, nd Ext: +1 ?lower extremity edema Data: Labs: Recent Labs 02/02/18 0500 02/01/18 0400 01/31/18 0415 WBC 12.77* 10.77* 7.98 HB 7.8* 8.0* 7.2* HCT 24.1* 24.8* 22.4* MCV 88.0 86.7 88.2 PLT 240 215 208 Recent Labs 02/02/18 0500 02/01/18 0400 01/31/18 2350 01/31/18 0415 NA 142 140 -- -- 142 K 2.8* 3.6 -- -- 3.6 CO2 24 24 -- -- 21 MG 1.8 1.9 1.9 < > 2.3 BUN 88* 59* -- -- 63* CREAT 3.29* 2.32* -- -- 2.33* CA 6.9* 7.0* -- -- 7.4* < > = values in this interval not displayed. Assessment and Plan 1. Acute kidney injury on chronic kidney disease stage 3. Baseline SCr is 1.36 mg/dL on 11/14/17. CKD is likely due to nephrosclerosis related to PAD. TERENCE is secondary to ischemic ATN from shock.CVVHDF was stopped 01/31. Off NE gtt. Pt is making more urine. Cr increased from 2.3- >3.2 today in the last 24 hours Will do HD session today for metabolic support without UF Will continue to monitor for kidney function recovery. Keep MAP > 65 ? 2. Shock. Stable. Initially due to hemorrhagic shock-massive blood loss from ruptured AAA +/- adrenal insufficiency. Currently off NE gtt. On hydrocortisone. ? 3. Ruptured AAA. s/p repair 01/12/18. Management as per vascular surgery. ? 4. Acute hypoxic respiratory failure. Ventilator dependent. Vent management as per pulmonary/CCM. ? 5. Encephalopathy. Neuro evaluation in progress. Eventual MRI. ? d/w Dr. Soliz Renal team will continue to follow VICKY DEVI MD NUTRITION Observed: 02/02/2018 Status: COMPLETED Source: [place] 10:54 AM [facility] OTHER CAMPUS REPOSITORY O ID: [id number] Author: Viry Mosher RD Service: NST-Nutrition Support Team Author Type: Registered Dietitian Type: Nutrition Filed: 02/02/2018 11:15 AM Note Text: Attestation signed by Perla Dudley at 02/06/2018 8:38 AM Discussed with the RD and agree with RD's findings and plan as documented in the RD's note. Cont TPN. Attempt enteral feeds Perla Dudley MD NUTRITION SUPPORT TEAM TOPIC: NUTRITION SUPPORT TEAM PROGRESS NOTE PATIENT NAME: Naveen Akins DATE OF : 1940 DATE: 02/02/2018 Nutritional Status: MODERATE PROTEIN-CALORIE MALNUTRITION per RD 02/01/18 ? In the context of Acute Illness or Injury based on: Muscle Loss Moderate Loss Decline in Functional Status: Regressed ? NUTRITION CARE PLAN: ? Problem, Etiology and Signs/Symptoms: Altered GI function related to ileus/gastroparesis as evidenced by need for TPN, and intolerance to TF, depletion of visceral status NST consult 01/16/18 for TPN support Interval History: LOS d 21, tolerating TPN, TF started @ 10 ml/hr , + FMS, NPO, no pain, residuals 0-120 ml , s/p PICC 02/01 Assessment: ?77 year old male with Ruptured AAA s/p Emergent Repair, takeback washout, repair of serosal tears x2, on 01/12, hemorrhagic shock, acute resp failure with pulm edema, TERENCE, SVT s/p Third Look Laparotomy and?washout on 01/14, fourth look, washout, vac change on 01/16 ?remains on vent, continues on CRRT 01/19 ?X lap, wash out, partial fascial closure, wound vac change 01/20 pressors weaned off Remains on diprivan gtt 01/20 rt thoracentesis- breathing better 01/21 limited abdominal x lap and closure 01/22 levo at pm restarted 01/23 neuro consult, ? plans for trach/Peg 01/24 new femoral HD line per nephrology, working good 01/25 + emesis 01/26 started on Zosyn for GNR ( sputum) , TF off 01/27 plans for Peg/Trach 01/30 Select to eval, possible dc CRRT per renal?, ongoing ileus 01/31 HD to start 02/01 new PICC placement ? Tmax: 37.3 WBC: 12.77 Edema: 3+ UE, LE Lines: Quad lumen, HD cath, all WNL Lytes: reviewed PAB: improved to 27.5 WT: ?85.6 ?kg ( down from 104 kg) GFR: 18.29 Trig : ?Still high at 432, remains off diprivan and lipid in TPN, recheck 02/06 ? ? ? Recommendations: TPN renewed: ?Decreased NACL and Na Phos, increased KCL ? TPN script: 1.5?L /24 hrs providing 1900?calories ( 23 kcals/kg ABW 84?kg) and 100 gms pro ( ~ 1.17 gms/kg ABW 84?kg) per day ? CHO:insulin ratio is ?98:1?, with 441 ?gms CHO in TPN , 55 units in TPN bag ? Goal for Lizbeth Renal is 42 cc/hr providing 2000 calories and 90 gms pro. monitor closely pt, may not tolerate this 2.0 calorie intact TF, may need to consider Impact/Peptamen as a predigested formula Collaborated with Dr Dudley and orders written. Vitals: Temperature Max in 24 hours: Temp (24hrs), Av.6 ?C (97.9 ?F), Min:35.6 ?C (96.1 ?F), Max:37.3 ?C (99.1 ?F) Current Vital Signs: BP 112/73 Pulse 97 Temp (!) 35.7 ?C (96.3 ?F) (Axillary) Resp 25 Ht 172.7 cm (5' 7.99) Wt 85.6 kg (188 lb 11.4 oz) SpO2 100% BMI 28.70 kg/m? Current Weight: Weight: 85.6 kg (188 lb 11.4 oz) Intake AND Output: Intake/Output Summary (Last 24 hours) at 02/02/18 1055 Last data filed at 02/02/18 0730 Gross per 24 hour Intake 1337 ml Output 1098 ml Net 239 ml Laboratory Data: Recent Labs 02/02/18 0500 02/01/18 0400 01/31/18 2350 01/31/18 0415 01/30/18 1100 NA 142 140 -- -- 142 143 K 2.8* 3.6 -- -- 3.6 3.7 CHLOR 104 103 -- -- 106 107 CO2 24 24 -- -- 21 29 CREAT 3.29* 2.32* -- -- 2.33* 1.40* BUN 88* 59* -- -- 63* 41* GLUC 160* 190* -- -- 186* 177* P 4.9 4.6 -- -- 4.3 3.3 ALB -- -- -- -- -- 1.0* MG 1.8 1.9 1.9 < > 2.3 2.3 CA 6.9* 7.0* -- -- 7.4* 7.5* < > = values in this interval not displayed. Recent Labs 02/02/18 0500 01/30/18 [address], LD, [facility] Pager: [phone] Increments: 3 PROGRESS Observed: 02/02/2018 Status: COMPLETED Source: [place] 9:09 AM CLINIC OTHER CAMPUS REPOSITORY HNO ID: [id number] Author: Lora Soliz Service: Critical Care Author Type: Physician Type: Progress Notes Filed: 02/02/2018 9:14 AM Note Text: MICU - PROGRESS NOTE SERVICE DATE: 02/02/2018 SERVICE TIME: 9:09 AM Admission Date: 01/12/2018 AGE: [id number] year old LOS: 21 days REASON FOR ICU ADMISSION: Respiratory Failure, Sepsis, Shock and S/P Surgery Objective sajan low tf Off norepi sajan steroid taper Poor weans with cheynes smith PAST MEDICAL HISTORY Diagnosis Date - DIC (disseminated intravascular coagulation) (HCC) 01/12/2018 PAST SURGICAL HISTORY Procedure Laterality Date - LAP CHOLECYSTECT/CHOLANGIOGRAPHY 05-28-09 - PICC LINE INSERTION (PICC TEAM) ([place]) 01/31/2018 - PICC LINE INSERTION (PICC TEAM) (AK) 02/01/2018 - REPAIR UMBILICAL NATAN,5+Y/O,REDUC 05-28-09 Social History Marital status: Spouse name: Shelly Years of education: 11 Number of children: 4 Occupational History 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 BP 90/53 Pulse 89 Temp (Src) 96.1 (Axillary) Resp 25 Ht 5' 7.992 (1.73m) Wt 188 lb 11.4 oz (85.6kg) SpO2 100% BMI 28.70 kg/(m2). Temp (24hrs), Av.7 ?C (98.1 ?F), Min:35.6 ?C (96.1 ?F), Max:37.3 ?C (99.1 ?F) NET FLUID BALANCE Intake/Output Summary (Last 24 hours) at 02/02/18 0909 Last data filed at 02/02/18 0730 Gross per 24 hour Intake 1337 ml Output 1248 ml Net 89 ml MEDICATIONS Current Facility-Administered Medications: Parenteral Nutrition - Adult INTRAVENOUS ONCE TPN (1800 START) meropenem 500 mg in NaCl 0.9% 100 mL MB+ (MERREM) 500 mg INTRAVENOUS q 12 H midodrine (PROAMITINE) tab(s) 15 mg 15 mg PEG q 8 H pantoprazole 40 mg injection (PROTONIX) 40 mg INTRAVENOUS DAILY (6 AM) carboxymethylcellulose sodium 1-2 Drop (CELLUVISC) 1-2 Drop BOTH EYES TID 0.9% NaCl 10 mL 10 mL INTRAVENOUS q 12 H 0.9% NaCl 20 mL 20 mL INTRAVENOUS PRN ipratropium-albuterol 3 mL nebulizer solution (DUONEB) 3 mL INHALATION QID metoclopramide HCl 5 mg injection (REGLAN) 5 mg INTRAVENOUS q 12 H 0.9% NaCl 10 mL 10 mL INTRAVENOUS q 12 H 0.9% NaCl 20 mL 20 mL INTRAVENOUS PRN potassium chloride iv piggyback 20 mEq in sterile water 100 mL 20 mEq INTRAVENOUS PRN magnesium sulfate in water 2 g in sterile water 50 ml 2 g INTRAVENOUS PRN sodium phosphate 45 mmol in NaCl 0.9% 250 mL 45 mmol INTRAVENOUS PRN calcium gluconate 4 g in NaCl 0.9% 250 mL 4 g INTRAVENOUS PRN fentaNYL 50 mcg/mL 25-50 mcg injection (SUBLIMAZE) 25-50 mcg INTRAVENOUS q 2 H PRN budesonide 0.5 mg/2 mL 0.5 mg (PULMICORT) 0.5 mg INHALATION BID senna leaf extract 176 mg/5 mL 528 mg 15 mL OROGASTRIC BID carboxymethylcellulose sodium 1-2 Drop (CELLUVISC) 1-2 Drop BOTH EYES PRN polyvinyl alcohol-povidone 1.4-0.6 % 1 Drop (REFRESH) 1 Drop BOTH EYES QID PRN heparin 1,000 unit/mL 4,000 Units injection 4,000 Units INTRAVENOUS 3 Times weekly with dialysis heparin 5,000 Units injection 5,000 Units SUBCUTANEOUS q 12 H NaCl 0.9% 1,000 mL iv bolus 1,000 mL INTRAVENOUS PRN DIALYSIS dextrose 40 % 15 g 15 g ORAL PRN Or glucagon 1 mg injection (GLUCAGEN) 1 mg INTRAMUSCULAR PRN Or dextrose 50% in water 25 mL syringe 12.5 g INTRAVENOUS PRN magnesium sulfate 1 g in D5W 100 mL 1 g INTRAVENOUS PRN magnesium sulfate in water 2 g in sterile water 50 ml 2 g INTRAVENOUS PRN Chlorhexidine Gluconate 0.12 % 15 mL (PERIDEX) 15 mL ORAL q 12 H Lines, Drains, and Airways Line Dialysis / Apheresis Double Lumen 01/24/18 1400 Non-tunneled Right Groin 8 days Central Line Double Lumen 02/01/18 0815 Peripherally Inserted (PICC) Left Arm 1 day Drain Drain/Tube 01/19/18 1015 Midline Abdomen 13 days GI Feed/Drain 01/27/18 Assessment Gastrostomy 6 days Condom Catheter 01/31/18 1300 Assessment 1 day Drain/Tube 02/02/18 0300 Fecal Management System Rectum less than 1 day Airway Airway Tracheostomy 01/27/18 6 days Respiratory/Nursing Documentation: O2 Therapy: Ventilator (02/02/18 0840) Invasive Ventilator Mode: Pressure Regulated Volume Control (02/02/18 0807) Set Ventilator Respiratory Rate (BPM): 18 (02/02/18 0807) Total Respiratory Rate (BPM): 18 (02/02/18 0807) Tidal Volume Set (mL): 500 (02/02/18 0807) Exhaled Tidal Volume (mL): 560 (02/02/18 0807) Minute Volume (L): 10.6 (02/02/18 08) Peak Inspiratory Pressure (cm H2O): 18 (02/02/18 0807) PEEP/CPAP (cm H2O): 5 (02/02/18 08) HEMODYNAMIC DATA: reviewed NUTRITION: tpn 50 Enteral Feeds: 20 hr! VENT: cmv /500/5 WEANS: held PRESSORS: off CULTURE update: CXR FINDINGS: OTHER IMAGING: DATA: Diagnostic tests reviewed for today's visit: Most recent labs and imaging results REVIEWED. LABS: Recent Labs 02/02/18 0500 01/30/18 1100 WBC 12.77* < > -- RBC 2.74* < > -- HB 7.8* < > -- HCT 24.1* < > -- MCV 88.0 < > -- PLT 240 < > -- GLUC 160* < > 177* BUN 88* < > 41* CREAT 3.29* < > 1.40* NA 142 < > 143 K 2.8* < > 3.7 CHLOR 104 < > 107 CO2 24 < > 29 ALB -- -- 1.0* CA 6.9* < > 7.5* MG 1.8 < > 2.3 < > = values in this interval not displayed. ABG: Recent Labs 01/31/18 1035 PH 7.523* PO2 156.7* PCO2 29.6* Assessment/Plan PROBLEMS: Patient Active Hospital Problem List: Ruptured abdominal aortic aneurysm (AAA) ([facility]) (01/12/2018) DIC (disseminated intravascular coagulation) ([facility]) (01/12/2018) Acute respiratory failure ([facility]) (01/12/2018) Cardiac arrest ([facility]) (01/12/2018) Anoxic encephalopathy ([facility]) (01/13/2018) AAA (abdominal aortic aneurysm, ruptured) ([facility]) (01/12/2018) Obesity, Class I, BMI 30-34.9 (01/16/2018) TERENCE (acute kidney injury) ([facility]) (01/30/2018) Ileus ([facility]) (01/30/2018) Acute liver failure without hepatic coma (01/30/2018) AAA rupture with msof, multiple reops, now fascial closure resolved hypotension/?shock, increased Midodrine and gave rbc to assist BP Severe anoxic enceph POOR OUTLOOK TERENCE on NURSE'S ASSISTANT, controlled azotemia but higher off cvvhd, resume HD Recovered thrombocytopenia Vent dep resp failure, resp alkalosis from tachypnea Trach Peg Ileus/ gastroparesis some better now mucosal TF Wound issues with wound vac Enterobacter LRTI , cxr fairly clear now; Left infiltrate better; merrum and peritonitis likely post washout Shock Critical illness adrenal insuff Liver failure, cholestasis and post arrest shock hepatitis, mild improvement Hyperlipidemia TG 490, none in TPN Severe anemia ?7.2, now 7.8 after 1 rbc Resolved ple effusions Very prominent Cheynes Stoke periodic breathing limiting weaning as freq alarms ? ? CRITICAL CARE PLAN: 1. psv trials failed, failed?sbt but 17?days vent; CheyneStokes periodic breathing on psv due to service architect; try SIMV knowing typically inferior but has apnea at times 2. Tpn at 1700kcal /day, low TF; reglan noted (EKG qtc 480) so decrease #; prealb 23; 3. HD; fluid even; 4. Taper steroids hydrocortisone 25mg, stop 5. merrum thru 02/07 noted 6. 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 Dcd betty > 10 days, nil norepi 8. PICC done ,?new tunneled HD cath soon?if needs further NURSE'S ASSISTANT 9. Wound care? 10. Should be DNR, family been resistent per staff , will talk to family when see in room? ? ? Critical Care Documentation: The patient has the following organ/system impairment(s): Respiratory failure (Acute), Septic shock and Severe electrolyte imbalance This patient has a high probability of sudden, clinically significant deterioration, which requires the highest level of physician preparedness to intervene urgently. I managed/supervised life or organ supporting interventions that required frequent physician assessment. I devoted my full attention to the direct care of this patient for the amount of time indicated below. Time I spent with family or surrogate(s) is included only if the patient was incapable of providing the necessary information or participating in medical decision making. Time devoted to teaching is not included. Patient Updated No Family Updated No Discussed with Staff Yes Time spent providing critical care services: 30 minutes excluding billable procedures. SIGNATURE: Lora Soliz MD PATIENT NAME: Naveen Akins DATE: February 02, 2018 TIME: 9:09 AM PROGRESS Observed: 02/02/2018 Status: COMPLETED Source: [place] 6:15 AM [facility] REPOSITORY O ID: [id number] Author: Dionicio Stevens Service: Vascular Surgery Author Type: Resident Type: Progress Notes Filed: 02/02/2018 8:30 AM Note Text: Attestation signed by Venkat Paniagua at 02/02/2018 3:38 PM Patient seems stable today no evidence of any new problems. Plan for dialysis this afternoon. Discussed everything again with the family with regard to potential LTAC placement. They are a little concerned that we are moving a little too fast but I try to assure them that he will be going to an intensive care section of the LTAC and that many of his caregivers will be the same. At this point in time they do seem to understand the need for moving along they expressed some concern about the fact he didn't tolerate dialysis very well the other day but I state that we really need to get him off of the continuous dialysis on to something more like this if he is to be able to have a chance of meaningful recovery. I discussed with him and obtain informed consent from them for placing a tunneled dialysis catheter. Because of the multiple issues the patient has is rather recent tracheostomy and other issues I'm going to opt place this tunneled dialysis catheter in the operating room with anesthesia assistance. Vascular Surgery Progress Note SERVICE DATE: 02/02/2018 Vascular AND Thoracic Surgery Service Pager: For questions or concerns Mon-Tue 6a-5p please page [phone]. After 5pm and on Weekends and Holidays, please page [phone] if in ICU or [phone] if on RNF. Subjective SUBJECTIVE: NAEON Diet: Parenteral Nutrition - Adult DIET TUBE FEED - CONTIN (NO TRAY) Objective OBJECTIVE: Vitals: Temp (24hrs), Av ?C (98.6 ?F), Min:36.6 ?C (97.9 ?F), Max:37.8 ?C (100 ?F) BP 120/65 Pulse 99 Temp 37.1 ?C (98.8 ?F) (Temporal Artery) Resp 25 Ht 172.7 cm (5' 7.99) Wt 87 kg (191 lb 12.8 oz) SpO2 99% BMI 29.17 kg/m? O2 Therapy: Ventilator IANDO: Date 02/01/18 07 - 02/02/18 0659 02/02/18 07 - 02/03/18 0659 Shift 6867-1332 3517-1090 1152-0395 24 Hour Total 1211-2205 6897-3681 6430-2074 24 Hour Total I N T A K E IV 110 110 IVPB 100 100 NORepinephrine Volume 10 10 Irrigants 90 90 Irrigant/Flush Amount In (GI Feed/Drain 01/27/18 Assessment Gastrostomy) 90 90 Gastric Tube 15 15 Tube Feed Intake (I/O) (GI Feed/Drain 01/27/18 Assessment Gastrostomy) 15 15 Shift Total 215 215 O U T P U T Urine 380 110 222 712 Urine Not Saved 2 2 Tube Output ( Condom Catheter 01/31/18 1300 Assessment) 110 220 330 Tube Output ([REMOVED] Indwelling Urinary Catheter 02/01/18 1000 Sanchez 16 Fr 02/01/18 1230) 380 380 Tubes 200 0 300 500 Drain/Tube Output (Drain/Tube 01/19/18 1015 Midline Abdomen) 0 0 0 Drain/Tube Output ([REMOVED] Drain/Tube 01/29/18 1909 Assessment Fecal Management System Rectum 02/02/18 0255) 100 300 400 Output (GI Feed/Drain 01/27/18 Assessment Gastrostomy) 100 100 # of BMs Number of BMs 2 x 2 x Shift Total 580 606 065 1574 Weight (kg) 85.5 87 87 87 87 87 87 87 MEDICATIONS Current Facility-Administered Medications: Parenteral Nutrition - Adult INTRAVENOUS ONCE TPN (1800 START) meropenem 500 mg in NaCl 0.9% 100 mL MB+ (MERREM) 500 mg INTRAVENOUS q 12 H midodrine (PROAMITINE) tab(s) 15 mg 15 mg PEG q 8 H pantoprazole 40 mg injection (PROTONIX) 40 mg INTRAVENOUS DAILY (6 AM) carboxymethylcellulose sodium 1-2 Drop (CELLUVISC) 1-2 Drop BOTH EYES TID 0.9% NaCl 10 mL 10 mL INTRAVENOUS q 12 H 0.9% NaCl 20 mL 20 mL INTRAVENOUS PRN hydrocortisone sodium succinate (PF) 25 mg injection (Solu- CORTEF) 25 mg INTRAVENOUS q 8 H ipratropium-albuterol 3 mL nebulizer solution (DUONEB) 3 mL INHALATION QID metoclopramide HCl 5 mg injection (REGLAN) 5 mg INTRAVENOUS q 12 H 0.9% NaCl 10 mL 10 mL INTRAVENOUS q 12 H 0.9% NaCl 20 mL 20 mL INTRAVENOUS PRN potassium chloride 80-120 mEq oral liquid 80-120 mEq ORAL/FEEDING TUBE PRN potassium chloride iv piggyback 20 mEq in sterile water 100 mL 20 mEq INTRAVENOUS PRN magnesium sulfate in water 2 g in sterile water 50 ml 2 g INTRAVENOUS PRN sodium phosphate 45 mmol in NaCl 0.9% 250 mL 45 mmol INTRAVENOUS PRN calcium gluconate 4 g in NaCl 0.9% 250 mL 4 g INTRAVENOUS PRN fentaNYL 50 mcg/mL 25-50 mcg injection (SUBLIMAZE) 25-50 mcg INTRAVENOUS q 2 H PRN budesonide 0.5 mg/2 mL 0.5 mg (PULMICORT) 0.5 mg INHALATION BID senna leaf extract 176 mg/5 mL 528 mg 15 mL OROGASTRIC BID carboxymethylcellulose sodium 1-2 Drop (CELLUVISC) 1-2 Drop BOTH EYES PRN polyvinyl alcohol-povidone 1.4-0.6 % 1 Drop (REFRESH) 1 Drop BOTH EYES QID PRN heparin 1,000 unit/mL 4,000 Units injection 4,000 Units INTRAVENOUS 3 Times weekly with dialysis heparin 5,000 Units injection 5,000 Units SUBCUTANEOUS q 12 H NaCl 0.9% 1,000 mL iv bolus 1,000 mL INTRAVENOUS PRN DIALYSIS dextrose 40 % 15 g 15 g ORAL PRN Or glucagon 1 mg injection (GLUCAGEN) 1 mg INTRAMUSCULAR PRN Or dextrose 50% in water 25 mL syringe 12.5 g INTRAVENOUS PRN magnesium sulfate 1 g in D5W 100 mL 1 g INTRAVENOUS PRN magnesium sulfate in water 2 g in sterile water 50 ml 2 g INTRAVENOUS PRN NORepinephrine 16 mg in D5W 250 mL (LEVOPHED) 0-30 mcg/min INTRAVENOUS CONTINUOUS Chlorhexidine Gluconate 0.12 % 15 mL (PERIDEX) 15 mL ORAL q 12 H Labs: Recent Labs 02/02/18 0500 02/01/18 0400 01/31/18 2350 01/31/18 1035 01/31/18 0415 01/30/18 1100 NA 142 140 -- -- -- 142 -- 143 K 2.8* 3.6 -- -- -- 3.6 -- 3.7 CHLOR 104 103 -- -- -- 106 -- 107 CO2 24 24 -- -- -- 21 -- 29 BUN 88* 59* -- -- -- 63* -- 41* CREAT 3.29* 2.32* -- -- -- 2.33* -- 1.40* GLUC 160* 190* -- -- -- 186* -- 177* ANION 17* 17* -- -- -- 19* < > -- CA 6.9* 7.0* -- -- -- 7.4* -- 7.5* MG -- 1.9 1.9 < > -- 2.3 -- 2.3 P -- 4.6 -- -- -- 4.3 -- 3.3 ALB -- -- -- -- -- -- -- 1.0* WBC 12.77* 10.77* -- -- -- 7.98 < > -- HB 7.8* 8.0* -- -- -- 7.2* < > -- HCT 24.1* 24.8* -- -- -- 22.4* < > -- PLT 240 215 -- -- -- 208 < > -- PH -- -- -- -- 7.523* -- -- -- PCO2 -- -- -- -- 29.6* -- -- -- PO2 -- -- -- -- 156.7* -- -- -- BE -- -- -- -- 1.1 -- -- -- < > = values in this interval not displayed. Exam: GENERAL: No distress NEURO: Opens eyes, no tracking, not following HEENT: normocephalic, atraumatic, Trach intact LUNGS: Unlabored breathing O2 Therapy: Ventilator CARDIAC: AFib, mild tachy ABDOMEN: Soft, non-tender, non-distended, VAC, PEG, and retention sutures intact EXTREMITIES: MAK, No deformities, No edema, palpable pulses SKIN: Skin color, texture, turgor normal, No rashes or lesions ASSESSMENT AND PLAN: Active Hospital Problems Diagnosis Date Noted - Ruptured abdominal aortic aneurysm (AAA) (HCC) 01/12/2018 - TERENCE (acute kidney injury) (HCC) 01/30/2018 - Ileus (HCC) 01/30/2018 - Acute liver failure without hepatic coma 01/30/2018 - Obesity, Class I, BMI 30-34.9 01/16/2018 - Anoxic encephalopathy (HCC) 01/13/2018 - DIC (disseminated intravascular coagulation) (HCC) 01/12/2018 - Acute respiratory failure (HCC) 01/12/2018 - Cardiac arrest (HCC) 01/12/2018 - AAA (abdominal aortic aneurysm, ruptured) (HCC) 01/12/2018 Overview Note: Added automatically from request for surgery [id number] 77 year old male with Ruptured AAA s/p Emergent Repair, takeback washout, repair of serosal tears x2, on 01/12, hemorrhagic shock, acute resp failure with pulm edema, TERENCE, SVT, s/p Third Look Laparotomy and?washout on 01/14, fourth look, washout, vac change on 01/16, Partial fascial closure on 01/19, Fascial closure/Retention Sutures on 01/21, Trach and PEG on 01/27 ? - Trach Vent mgmt per MICU - NPO/TPN, TFs via PEG - Acute blood loss and dilutional anemia and thrombocytopenia - monitor, stable - TERENCE -->?CVVHD stopped yesterday?per?Nephro, IHD - Meropenum for E-bacter HCAP - Cont WV --> wound care following for VAC changes - Solucortef 50mg q8h per MICU - Leukocytosis - cont Abx for HCAP - Acute blood loss/dilutional anemia - Levo wean as able - Sedation off - Reglan - LUE PICC - Hypocalcemia and kalemia - replacing - Code Status: family wants to maintain Full Code status - Select following for LTAC placement ?? Assessment and plan discussed with attending: Dr. Paniagua SIGNATURE: Dionicio Stevens MD PATIENT NAME: Naveen Akins DATE: February 02, 2018 TIME: 6:15 AM Vascular AND Thoracic Surgery Service Pager: For questions or concerns Mon-Fri 6a-5p please page [phone]. After 5pm and on Weekends and Holidays, please page [phone] if in ICU or [phone] if on RNF. HEMOGRAM/DIFF Collected: 02/02/2018 Status: F Source: [facility] 5:00 AM HEALTH SYSTEM REPOSITORY TYPE CODE TESTS RESULT OUT OF REFERENCE UNITS RANGE LAB WBC(LOINC) 4.23-9.07 thou/cmm WBC High 12.77 LAB RBC(LOINC) 4.63-6.08 mil/cmm Low RBC 2.74 LAB HGB(LOINC) 13.7-17.5 g/dL Low Hgb 7.8 LAB HCT(LOINC) 40.1-51.0 % Low Hct 24.1 LAB MCV(LOINC) 83.2-95.6 fl MCV 88.0 LAB MCH(LOINC) 25.7-32.2 pg MCH 28.5 LAB MCHC(LOINC 32.3-36.5 % ) MCHC 32.4 LAB RDW(LOINC) 11.6-14.4 % RDW High 19.2 LAB RDWSD(LOIN 36.1-45.8 fl C) RDW SD High 59.5 LAB PLT(LOINC) 141-365 thou/cmm Platelet 240 LAB MPV(LOINC) 8.7-12.0 fl MPV 11.9 LAB SEG(LOINC) % Seg Neutrophil 82.5 LAB IGRE(LOINC % ) Immature Grans 7.50 LAB LYMPH(LOIN % C) Lymphocyte 6.4 LAB MNO(LOINC) % Monocyte 3.4 LAB EOSIN(LOIN % C) Eosinophil 0.1 LAB BASO(LOINC % ) Basophil 0.1 LAB SEGN(LOINC 1.78-5.38 thou/cmm ) Abs. High Neut (ANC) 10.54 LAB IGAB(LOINC 0.00-0.05 thou/cmm ) Abs High Immature Grans 0.96 LAB LYMN(LOINC 0.84-2.85 thou/cmm ) Low Abs. Lymph 0.82 LAB MONON(LOIN 0.30-0.82 thou/cmm C) Abs. Rincon 0.43 LAB EOSN(LOINC 0.04-0.54 thou/cmm ) Low Abs. Eosin 0.01 LAB BASON(LOIN 0.01-0.08 thou/cmm C) Abs. Baso 0.01 Result Comment: Smear scanned; tech agrees with automated differential Performed By: #### [id number] #### [place] [address] IONIZED CALCIUM Collected: 02/02/2018 Status: F Source: [facility] 5:00 AM HEALTH SYSTEM REPOSITORY TYPE CODE TESTS RESULT OUT OF REFERENCE UNITS RANGE LAB CAION(LOINC 4.43-4.93 mg/dL ) Low Ionized 3.83 Calcium LAB PHCAI(LOINC 7.320-7.420 ) pH High 7.421 LAB CAPH(LOINC) 4.36-4.73 mg/dL Low Ionized 3.87 Ca,PH7.4 Performed By: #### IONCA #### [place] [address] BASIC PANEL Collected: 02/02/2018 Status: F Source: [facility] 5:00 PENDING SALE TO [facility] REPOSITORY TYPE CODE TESTS RESULT OUT OF REFERENCE UNITS RANGE LAB NA(LOINC) 136-145 mEq/L Sodium Blood 142 LAB K(LOINC) 3.5-5.1 mEq/L Low Potassium Blood 2.8 LAB CL(LOINC) 98-107 mEq/L Chloride Blood 104 LAB CO2(LOINC) 21-32 mEq/L CO2 Blood 24 LAB GLU(LOINC) 70-99 mg/dL Glucose High Blood 160 LAB BUN(LOINC) 7-18 mg/dL BUN High Blood 88 LAB CREA(LOINC 0.67-1.17 mg/dL ) High Creatinine Blood 3.29 LAB CA(LOINC) 8.5-10.1 mg/dL Low Calcium Blood 6.9 LAB ANGAP(LOIN 8-16 C) Anion High Gap 17 Performed By: #### P8 #### [place] [address] PREALBUMIN Collected: 02/02/2018 Status: F Source: [facility] 5:00 HEALTH SYSTEM REPOSITORY TYPE CODE TESTS RESULT OUT OF REFERENCE UNITS RANGE LAB PAB(LOINC) 20.0-40.0 mg/dL Prealbumin 27.5 Performed By: #### PAB #### [place] [address] TRIGLYCERIDE BLOOD Collected: 02/02/2018 Status: F Source: [facility] 5:00 HEALTH SYSTEM REPOSITORY TYPE CODE TESTS RESULT OUT OF REFERENCE UNITS RANGE LAB TRIG(LOINC 0-149 mg/dL ) Triglyceride High Blood 336 Result Comment: < 200 Desirable Result invalid if not a fasting specimen. Performed By: #### TRIG #### [facility] [address] [place] [address] MAGNESIUM BLOOD Collected: 02/02/2018 Status: F Source: [facility] 5:00 AM HEALTH SYSTEM REPOSITORY TYPE CODE TESTS RESULT OUT OF REFERENCE UNITS RANGE LAB MAG(LOINC) 1.6-2.6 mg/dL Magnesium Blood 1.8 Performed By: #### MAG #### [facility] [address] [place] [address] PHOSPHORUS BLOOD Collected: 02/02/2018 Status: F Source: [facility] 5:00 AM HEALTH SYSTEM REPOSITORY TYPE CODE TESTS RESULT OUT OF REFERENCE UNITS RANGE LAB PHOS(LOINC 2.5-4.9 mg/dL ) Phosphorus Blood 4.9 Performed By: #### PHOS #### [place] [address] CASE MANAGEM Observed: 02/01/2018 Status: COMPLETED Source: [facility] 2:31 PM CLINIC OTHER [place] REPOSITORY HNO ID: [id number] Author: Steve TylerRn) MAGALY Rivera Service: Care Management Author Type: Registered Nurse Type: Care Mgt Progress Note Filed: 02/01/2018 2:34 PM Note Text: CARE MANAGEMENT PROGRESS NOTE SERVICE DATE: 02/01/2018 SERVICE TIME: 1431 LOS: 20 days . Epic reviewed. Pt remains sedated on vent, failed psv trials, seth smith breathing was observed. Continues on TPN, IV Merrem, pt had PICC placed yesterday. Plan will be for tunneled HD cath soon per MD note if pt needs further NURSE'S ASSISTANT. Per MD note, prognosis is poor and family has been very resistant to DNR. Will continue to follow for dc needs. SIGNATURE: Steve Rivera RN PATIENT NAME: Naveen Akins DATE: February 01, 2018 TIME: 2:31 PM PAGER/CONTACT #: [phone] PROGRESS Observed: 02/01/2018 Status: COMPLETED Source: [place] 1:32 PM [facility] OTHER [place] REPOSITORY HNO ID: [id number] Author: Abbi TylerRn) MAGALY Mtz Service: Wound Care Team Author Type: Registered Nurse Type: Progress Notes Filed: 02/01/2018 2:34 PM Note Text: WOUND CARE NURSE PROGRESS NOTE SERVICE DATE: 02/01/2018 SERVICE TIME: 1332 REASON FOR VISIT: Wound TIME SPENT (minutes): 30 Patient seen today for wound care follow-up/wound vac dressing change to midline abdomen. No changes to wound. Stable. Beginning to approximate at proximal end of incision. Applied 1 white, 2 black foam, 150mmHg, continuous. Plan to change wound vac dressing next on Tuesday02/03/18. Bedside RN reports skin to buttocks intact. Documentation from Wound Expert can be found in scanned documents. SIGNATURE: Abbi Mtz RN CWOCN PATIENT NAME: Naveen Akins DATE: February 01, 2018 TIME: 2:33 PM CONTACT#: [id number] PROGRESS Observed: 02/01/2018 Status: COMPLETED Source: [place] 11:05 AM CLINIC OTHER CAMPUS REPOSITORY HNO ID: [id number] Author: Lora Soliz Service: Critical Care Author Type: Physician Type: Progress Notes Filed: 02/01/2018 11:34 AM Note Text: MICU - PROGRESS NOTE SERVICE DATE: 02/01/2018 SERVICE TIME: 11:05 AM Admission Date: 01/12/2018 AGE: [id number] year old LOS: 20 days REASON FOR ICU ADMISSION: Renal Failure, Sepsis and S/P Surgery Objective Gt suction 1 mcg/min Norepi Post rbc Coma No HD today cheyneStokes with my psv trial, tried 10 mins watching him PAST MEDICAL HISTORY Diagnosis Date - DIC (disseminated intravascular coagulation) (HCC) 01/12/2018 PAST SURGICAL HISTORY Procedure Laterality Date - LAP CHOLECYSTECT/CHOLANGIOGRAPHY 05-28-09 - PICC LINE INSERTION (PICC TEAM) (AK) 01/31/2018 - PICC LINE INSERTION (PICC TEAM) (AK) 02/01/2018 - REPAIR UMBILICAL NATAN,5+Y/O,REDUC 05-28-09 Social History Marital status: Spouse name: Shelly Years of education: 11 Number of children: 4 Occupational History 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 BP 125/67 Pulse 91 Temp (Src) 100 (Temporal Artery) Resp 28 Ht 5' 7.992 (1.73m) Wt 188 lb 7.9 oz (85.5kg) SpO2 99% BMI 28.67 kg/(m2). Temp (24hrs), Av.1 ?C (98.8 ?F), Min:36.2 ?C (97.2 ?F), Max:37.8 ?C (100 ?F) NET FLUID BALANCE Intake/Output Summary (Last 24 hours) at 02/01/18 1105 Last data filed at 02/01/18 0730 Gross per 24 hour Intake 2227 ml Output 800 ml Net 1427 ml MEDICATIONS Current Facility-Administered Medications: Parenteral Nutrition - Adult INTRAVENOUS ONCE TPN (1800 START) midodrine (PROAMITINE) tab(s) 15 mg 15 mg PEG q 8 H pantoprazole 40 mg injection (PROTONIX) 40 mg INTRAVENOUS DAILY (6 AM) carboxymethylcellulose sodium 1-2 Drop (CELLUVISC) 1-2 Drop BOTH EYES TID 0.9% NaCl 10 mL 10 mL INTRAVENOUS q 12 H 0.9% NaCl 20 mL 20 mL INTRAVENOUS PRN hydrocortisone sodium succinate (PF) 25 mg injection (Solu- CORTEF) 25 mg INTRAVENOUS q 8 H ipratropium-albuterol 3 mL nebulizer solution (DUONEB) 3 mL INHALATION QID metoclopramide HCl 5 mg injection (REGLAN) 5 mg INTRAVENOUS q 12 H 0.9% NaCl 10 mL 10 mL INTRAVENOUS q 12 H 0.9% NaCl 20 mL 20 mL INTRAVENOUS PRN potassium chloride 80-120 mEq oral liquid 80-120 mEq ORAL/FEEDING TUBE PRN potassium chloride iv piggyback 20 mEq in sterile water 100 mL 20 mEq INTRAVENOUS PRN magnesium sulfate in water 2 g in sterile water 50 ml 2 g INTRAVENOUS PRN sodium phosphate 45 mmol in NaCl 0.9% 250 mL 45 mmol INTRAVENOUS PRN calcium gluconate 4 g in NaCl 0.9% 250 mL 4 g INTRAVENOUS PRN fentaNYL 50 mcg/mL 25-50 mcg injection (SUBLIMAZE) 25-50 mcg INTRAVENOUS q 2 H PRN meropenem 500 mg in NaCl 0.9% 100 mL MB+ (MERREM) 500 mg INTRAVENOUS q 8 H budesonide 0.5 mg/2 mL 0.5 mg (PULMICORT) 0.5 mg INHALATION BID senna leaf extract 176 mg/5 mL 528 mg 15 mL OROGASTRIC BID carboxymethylcellulose sodium 1-2 Drop (CELLUVISC) 1-2 Drop BOTH EYES PRN polyvinyl alcohol-povidone 1.4-0.6 % 1 Drop (REFRESH) 1 Drop BOTH EYES QID PRN heparin 1,000 unit/mL 4,000 Units injection 4,000 Units INTRAVENOUS 3 Times weekly with dialysis heparin 5,000 Units injection 5,000 Units SUBCUTANEOUS q 12 H NaCl 0.9% 1,000 mL iv bolus 1,000 mL INTRAVENOUS PRN DIALYSIS dextrose 40 % 15 g 15 g ORAL PRN Or glucagon 1 mg injection (GLUCAGEN) 1 mg INTRAMUSCULAR PRN Or dextrose 50% in water 25 mL syringe 12.5 g INTRAVENOUS PRN magnesium sulfate 1 g in D5W 100 mL 1 g INTRAVENOUS PRN magnesium sulfate in water 2 g in sterile water 50 ml 2 g INTRAVENOUS PRN NORepinephrine 16 mg in D5W 250 mL (LEVOPHED) 0-30 mcg/min INTRAVENOUS CONTINUOUS Chlorhexidine Gluconate 0.12 % 15 mL (PERIDEX) 15 mL ORAL q 12 H Lines, Drains, and Airways Line Arterial Line 01/19/18 0840 Arterial Line Right Radial 13 days Central Line Quadruple Lumen 01/19/18 1056 Right Neck 13 days Dialysis / Apheresis Double Lumen 01/24/18 1400 Non-tunneled Right Groin 7 days Central Line Double Lumen 02/01/18 0815 Peripherally Inserted (PICC) Left Arm less than 1 day Drain Drain/Tube 01/19/18 1015 Midline Abdomen 13 days GI Feed/Drain 01/27/18 Assessment Gastrostomy 5 days Drain/Tube 01/29/18 1909 Assessment Fecal Management System Rectum 2 days Condom Catheter 01/31/18 1300 Assessment less than 1 day Airway Airway Tracheostomy 01/27/18 5 days PHYSICAL EXAMINATION: VITAL SIGNS: ?As documented General appearance:?Well-developed well-nourished. ?Good hygiene. Left picc, HD groin; right betty radial Skin:?Normal turgor. mild?pallorous. ?Not diaphoretic. ??jaundice. ?lap?scars and retention sutures; wound vac abd Eyes: Pupils equally reactive to light. ?downgoing. ?mild jaundice. ENT:?No palpable lymphadenopathy.?Normocephalic. no neck scar. ?No thyromegaly. ?No macroglossia. Supple neck; trach stitched Heme/Lymph:?No significant neck adenopathy. ? ?Lungs:?Clear to auscultation. ?Decent inspiratory capacity. ?No overt wheeze. ?No significant hyperinflation. ?No fibrotic rales. No pleural rub. No dyspnea at rest. No effusion; variable RR. Some apnea on psv Heart:?Regular rate and rhythm. ?Normal heart tones. ?No significant murmur. ??No peripheral edema. ?Normal P2 . Good perfusion distally radial. Bounding pulses. warm ABD: Abdomen soft, non-tender. Large retention sutures. PEG to suction. Bowel sounds normal. No masses, organomegaly. Large girth; FMS liquid/dark Musculoskeletal: ??Extremities flaccid. No deformities, no edema,. Neuro:?obtunded; no commands, passive, no verbal attempts; coma; anoxic ? Respiratory/Nursing Documentation: O2 Therapy: Ventilator (02/01/18934) Invasive Ventilator Mode: Continuous Mandatory Ventilation (02/01/18934) Set Ventilator Respiratory Rate (BPM): 18 (02/01/18729) Total Respiratory Rate (BPM): 27 (02/01/18403) Tidal Volume Set (mL): 500 (02/01/18729) Exhaled Tidal Volume (mL): 516 (02/01/18934) Minute Volume (L): 13.7 (02/01/18403) Peak Inspiratory Pressure (cm H2O): 16 (02/01/18403) PEEP/CPAP (cm H2O): 5 (02/01/18934) HEMODYNAMIC DATA: reviewed NUTRITION: npo Enteral Feeds: VENT: 500/5/35 WEANS: poor SEDATION: none DRIPS: PRESSORS: minimal norepi CULTURE update: CXR FINDINGS: Pretty clear OTHER IMAGING: KUB no dilation DATA: Diagnostic tests reviewed for today's visit: Most recent labs and imaging results REVIEWED. LABS: Recent Labs 02/01/18 0400 01/30/18 1100 01/30/18 0555 WBC 10.77* < > -- 7.65 RBC 2.86* < > -- 2.57* HB 8.0* < > -- 7.3* HCT 24.8* < > -- 22.4* MCV 86.7 < > -- 87.2 PLT 215 < > -- 188 GLUC 190* < > 177* 177* BUN 59* < > 41* 43* CREAT 2.32* < > 1.40* 1.45* NA 140 < > 143 142 K 3.6 < > 3.7 3.5 CHLOR 103 < > 107 106 CO2 24 < > 29 25 TPROT -- -- -- 4.8* ALB -- -- 1.0* 1.0* CA 7.0* < > 7.5* 6.9* ALKPHOS -- -- -- 178* TBILI -- -- -- 6.0* AST -- -- -- 84* ALT -- -- -- 60 MG 1.9 < > 2.3 2.3 < > = values in this interval not displayed. ABG: Recent Labs 01/31/18 1035 PH 7.523* PO2 156.7* PCO2 29.6* Assessment/Plan PROBLEMS: Patient Active Hospital Problem List: Ruptured abdominal aortic aneurysm (AAA) ([facility]) (01/12/2018) DIC (disseminated intravascular coagulation) ([facility]) (01/12/2018) Acute respiratory failure ([facility]) (01/12/2018) Cardiac arrest ([facility]) (01/12/2018) Anoxic encephalopathy ([facility]) (01/13/2018) AAA (abdominal aortic aneurysm, ruptured) ([facility]) (01/12/2018) Obesity, Class I, BMI 30-34.9 (01/16/2018) TERENCE (acute kidney injury) ([facility]) (01/30/2018) Ileus ([facility]) (01/30/2018) Acute liver failure without hepatic coma (01/30/2018) AAA rupture with msof, multiple reops, now fascial closure Persistent hypotension/ shock, increased Midodrine and gave rbc to assist BP Severe anoxic enceph POOR OUTLOOK TERENCE on NURSE'S ASSISTANT, controlled azotemia but higher off cvvhd, hold HD as chemistries ok Recovered thrombocytopenia Vent dep resp failure, resp alkalosis from tachypnea Trach Peg Ileus/ gastroparesis Wound issues with wound vac Enterobacter LRTI , cxr fairly clear now; Left infiltrate better Shock Critical illness adrenal insuff Liver failure, cholestasis and post arrest shock hepatitis, mild improvement Hyperlipidemia TG 490, none in TPN Severe anemia 7.2, now 8 after 1 rbc Resolved ple effusions Very prominent Che[place] Stoke periodic breathing limiting weaning as freq alarms ? ? CRITICAL CARE PLAN: 1. psv trials failed, failed?sbt but 17 days vent; CheyneStokes periodic breathing on psv due to service architect; 2. Tpn at 1700kcal /day, ?low TF; reglan noted (EKG qtc 480) so decrease #; prealb 23; ?take GT off suction soon 3. Cvvhd off; fluid even; 4. Taper steroids hydrocortisone 25mg 5. merrum 6. 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 Dc betty > 10 days, nil norepi 8. PICC done ,cvl > 10 days; ?new tunneled HD cath soon?if needs further NURSE'S ASSISTANT 9. Wound care 10. Should be DNR, family been resistent per staff Critical Care Documentation: The patient has the following organ/system impairment(s): Respiratory failure (Acute, with Hypoxemia), Severe metabolic disorder and Severe protein-calorie malnutrition This patient has a high probability of sudden, clinically significant deterioration, which requires the highest level of physician preparedness to intervene urgently. I managed/supervised life or organ supporting interventions that required frequent physician assessment. I devoted my full attention to the direct care of this patient for the amount of time indicated below. Time I spent with family or surrogate(s) is included only if the patient was incapable of providing the necessary information or participating in medical decision making. Time devoted to teaching is not included. Patient Updated No Family Updated No Discussed with Staff Yes rn rt Time spent providing critical care services: 30 minutes excluding billable procedures. SIGNATURE: Lora Soliz MD PATIENT NAME: Naveen Akins DATE: February 01, 2018 TIME: 11:05 AM NUTRITION Observed: 02/01/2018 Status: COMPLETED Source: [place] 10:57 AM CLINIC OTHER CAMPUS REPOSITORY HNO ID: [id number] Author: Viry Mosher RD Service: NST-Nutrition Support Team Author Type: Registered Dietitian Type: Nutrition Filed: 02/01/2018 11:33 AM Note Text: Attestation signed by Perla Dudley at 02/06/2018 8:39 AM Discussed with the RD and agree with RD's findings and plan as documented in the RD's note. Cont TPN. Perla Dudley MD NUTRITION SUPPORT TEAM REASSESSMENT SERVICE DATE: 02/01/2018 SERVICE TIME: 10:57 AM RECOMMENDED MALNUTRITION DIAGNOSIS: MODERATE PROTEIN-CALORIE MALNUTRITION In the context of Acute Illness or Injury based on: Muscle Loss Moderate Loss Decline in Functional Status: Regressed NUTRITION CARE PLAN: Problem, Etiology and Signs/Symptoms: Altered GI function related to ileus/gastroparesis as evidenced by need for TPN, and intolerance to TF, depletion of visceral status Intervention: Continue NST for PN evaluation TPN renewed: ?Decreased NA Phos, increased macronutrients ? TPN script: 1.5?L /24 hrs providing 1900?calories ( 23?kcals/kg ABW 84?kg) and 100 gms pro ( ~ 1.17 gms/kg ABW 84?kg) per day ? CHO:insulin ratio is ?8:1?, with 441?gms CHO in TPN , 55 units in TPN bag ? Resume TF as able, once ileus resolves ? Collaborated with Dr Dudley and orders written. Coordination of Care: son , Monitor and Evaluation: Monitor fluid/electrolyte balance Monitor labs, I/Os, vital signs, weight Monitor tolerance to tube feeding Discharge Nutrition Recommendations: To be determined ACTIVE Problem List : Per ICU TEAM AAA rupture with msof, multiple reops, now fascial closure Persistent hypotension/ shock, low midodrine Severe anoxic encephalopathy On vent TERENCE on CKD, Stg 3 d/t nephrosclerosis r/t PAD Recovered thrombocytopenia Vent dependence resp failure, resp alkalosis from tachypnea Trach 01/27 Peg 01/27 Ileus/ gastroparesis--> on TPN Wound issues with wound vac Enterobacter LRTI , cxr fairly clear now; Left infiltrate better Shock Critical illness adrenal insuff Liver failure, cholestasis and post arrest shock hepatitis, mild improvement Hyperlipidemia TG 490--> off diprivan and no lipids in TPN Severe anemia 7.2 Resolved pleural effusions Interval History: LOS d 20, tolerating TPN, Peg to Low suction, + FMS, abdomen is firm, BS are hypoactive,no pain No diet orders placed this encounter GI Feed/Drain 01/27/18 Assessment Gastrostomy (Active) Arterial Line 01/19/18 0840 Arterial Line Right Radial (Active) Central Line Double Lumen 02/01/18 0815 Peripherally Inserted (PICC) Left Arm (Active) Central Line Quadruple Lumen 01/19/18 1056 Right Neck (Active) Dialysis / Apheresis Double Lumen 01/24/18 1400 Non-tunneled Right Groin (Active) Nutritional Intake: no oral intake, PEG placed 01/27, TF off, currently on TPN GI symptoms: abdomen is firm, hypoactive BS, + FMS, prior intolerance to TF with high residuals Nutrition Abdominal Exam:, abdomen is firm and bowel sounds are hypoactive ANTHROPOMETRICS Height: 172.7 cm (5' 7.99) Admission Weight: 80.1 kg (176 lb 9.4 oz) Current Weight: 85.5 kg (188 lb 7.9 oz) Body mass index is 28.67 kg/m?. class 1 obesity Weight has decreased voluntarily by 18.6 kg over 3 weeks representing 17 % weight, change unable to assess weight changes due to fluid shifts, Massive diuresis effect Last Wt 01/31/18 : 85.5 kg (188 lb 7.9 oz) 01/16/18: 104.2 kg ( 229 lb 11.5 oz) Usual Body Weight: 85kg Resting Metabolic Rate: 1559 Estimated kilocalorie needs: 9814-5420 kilocalories determined by 20-30 kcal/kg Estimated protein needs: 127 grams determined by 1.5 g/kg Actual weight Estimated fluid needs: 2000 milliliters based on 1 mL per kcal NUTRITION FOCUSED PHYSICAL EXAM: Limited exam d/t multiple drains, tubes and wounds Subcutaneous Fat Loss Orbital No fat loss Triceps Unable to determine at this time Mid-axillary at the iliac crest Unable to determine at this time Muscle Loss Locations: Temporalis Moderate Pectoralis Mild Deltoids Unable to determine at this time Interosseous Unable to determine at this time Latissimus dorsi, trapezius Unable to determine at this time Quadriceps Unable to determine at this time Gastrocnemius Unable to determine at this time Potential micronutrient deficiency revealed in: Skin - dry Mucous Membranes - cracking and dry Edema: Yes Upper extremities Moderate 2+, Lower extremities Moderate 2+ and Scrotal Ascites: No Assessment of Functional Status: Bedridden, rarely out of bed for a duration of 3 weeks Temperature Max in 24 hours: Temp (24hrs), Av.1 ?C (98.7 ?F), Min:36.2 ?C (97.2 ?F), Max:37.7 ?C (99.9 ?F) BP 109/60 Pulse 92 Temp 36.8 ?C (98.2 ?F) (Temporal Artery) Resp 27 Ht 172.7 cm (5' 7.99) Wt 85.5 kg (188 lb 7.9 oz) SpO2 98% BMI 28.67 kg/m? Recent Labs 02/01/18 0400 01/30/18 1100 GLUC 190* < > 177* BUN 59* < > 41* CREAT 2.32* < > 1.40* NA 140 < > 143 K 3.6 < > 3.7 CHLOR 103 < > 107 CO2 24 < > 29 ALB -- -- 1.0* P 4.6 < > 3.3 PREALB -- -- 23.0 HB 8.0* < > -- HCT 24.8* < > -- WBC 10.77* < > -- MG 1.9 < > 2.3 < > = values in this interval not displayed. Potential Signs of Inflammation: leukocytosis, hyperglycemia, hypoalbuminemia, low prealbumin, high CRP, hyperthermia and critically ill ALLERGIES No Known Allergies Current Facility-Administered Medications: Parenteral Nutrition - Adult INTRAVENOUS ONCE TPN (1800 START) midodrine (PROAMITINE) tab(s) 15 mg 15 mg PEG q 8 H pantoprazole 40 mg injection (PROTONIX) 40 mg INTRAVENOUS DAILY (6 AM) carboxymethylcellulose sodium 1-2 Drop (CELLUVISC) 1-2 Drop BOTH EYES TID 0.9% NaCl 10 mL 10 mL INTRAVENOUS q 12 H 0.9% NaCl 20 mL 20 mL INTRAVENOUS PRN hydrocortisone sodium succinate (PF) 25 mg injection (Solu- CORTEF) 25 mg INTRAVENOUS q 8 H ipratropium-albuterol 3 mL nebulizer solution (DUONEB) 3 mL INHALATION QID metoclopramide HCl 5 mg injection (REGLAN) 5 mg INTRAVENOUS q 12 H 0.9% NaCl 10 mL 10 mL INTRAVENOUS q 12 H 0.9% NaCl 20 mL 20 mL INTRAVENOUS PRN potassium chloride 80-120 mEq oral liquid 80-120 mEq ORAL/FEEDING TUBE PRN potassium chloride iv piggyback 20 mEq in sterile water 100 mL 20 mEq INTRAVENOUS PRN magnesium sulfate in water 2 g in sterile water 50 ml 2 g INTRAVENOUS PRN sodium phosphate 45 mmol in NaCl 0.9% 250 mL 45 mmol INTRAVENOUS PRN calcium gluconate 4 g in NaCl 0.9% 250 mL 4 g INTRAVENOUS PRN fentaNYL 50 mcg/mL 25-50 mcg injection (SUBLIMAZE) 25-50 mcg INTRAVENOUS q 2 H PRN meropenem 500 mg in NaCl 0.9% 100 mL MB+ (MERREM) 500 mg INTRAVENOUS q 8 H budesonide 0.5 mg/2 mL 0.5 mg (PULMICORT) 0.5 mg INHALATION BID senna leaf extract 176 mg/5 mL 528 mg 15 mL OROGASTRIC BID carboxymethylcellulose sodium 1-2 Drop (CELLUVISC) 1-2 Drop BOTH EYES PRN polyvinyl alcohol-povidone 1.4-0.6 % 1 Drop (REFRESH) 1 Drop BOTH EYES QID PRN heparin 1,000 unit/mL 4,000 Units injection 4,000 Units INTRAVENOUS 3 Times weekly with dialysis heparin 5,000 Units injection 5,000 Units SUBCUTANEOUS q 12 H NaCl 0.9% 1,000 mL iv bolus 1,000 mL INTRAVENOUS PRN DIALYSIS dextrose 40 % 15 g 15 g ORAL PRN Or glucagon 1 mg injection (GLUCAGEN) 1 mg INTRAMUSCULAR PRN Or dextrose 50% in water 25 mL syringe 12.5 g INTRAVENOUS PRN magnesium sulfate 1 g in D5W 100 mL 1 g INTRAVENOUS PRN magnesium sulfate in water 2 g in sterile water 50 ml 2 g INTRAVENOUS PRN NORepinephrine 16 mg in D5W 250 mL (LEVOPHED) 0-30 mcg/min INTRAVENOUS CONTINUOUS Chlorhexidine Gluconate 0.12 % 15 mL (PERIDEX) 15 mL ORAL q 12 H Date 01/31/18 0700 - 02/01/18 0659 02/01/18 0700 - 02/02/18 0659 Shift 3208-1037 8684-4545 2896-7117 24 Hour Total 9849-7345 9105-3013 0387-3823 24 Hour Total I N T A K E IV 849.9 241.1 213 1304 IVPB 660 197 857 NS 0.9% 75 31.6 190 296.6 NORepinephrine Volume 14.9 12.5 23 50.4 Meropenem (Merrem) 100 100 Blood Products 301 301 PRBC Intake (mL) 300 300 Packed Red Blood Cells Number of Units 1 1 TPN/PPN 622 622 TPN 622 622 Shift Total 849.9 542.1 835 2227 O U T P U T Urine 0 350 350 Tube Output ( Condom Catheter 01/31/18 1300 Assessment) 0 350 350 Drains 25 0 25 Negative Pressure: Output (mL) (Negative Pressure Wound Therapy 01/12/18 0749 Abdomen) 25 0 25 Tubes 100 350 450 0 0 Drain/Tube Output (Drain/Tube 01/19/18 1015 Midline Abdomen) 0 0 Drain/Tube Output (Drain/Tube 01/29/18 1909 Assessment Fecal Management System Rectum) 0 0 Output (GI Feed/Drain 01/27/18 Assessment Gastrostomy) 100 350 450 Shift Total 125 0 700 825 0 0 Weight (kg) 85.5 85.5 85.5 85.5 85.5 85.5 85.5 85.5 Negative Pressure Wound Therapy 01/12/18 0749 Abdomen (Active) Negative Pressure: Wound Filler Foam 01/31/2018 7:15 PM Negative Pressure: Therapy Continuous 01/31/2018 7:15 PM Negative Pressure: mmHg 150 mmHg 01/31/2018 7:15 PM Negative Pressure: Output (mL) 0 02/01/2018 4:00 AM Number of days: 20 Surgical Incision 01/12/18 0619 Abdomen - Midline (Active) Dressing Status Clean, Dry AND Intact 02/01/2018 7:30 AM Frequency of Dressing Change As Needed 02/01/2018 7:30 AM Dressing Change Due 01/30/18 02/01/2018 7:30 AM Dressing /Treatment Type Negative Pressure Wound Therapy 02/01/2018 7:30 AM Incision Closures Sutures 02/01/2018 7:30 AM Drainage Description Sanguineous 02/01/2018 7:30 AM Drainage Amount Scant 02/01/2018 7:30 AM Edges Intact 02/01/2018 7:30 AM Hematoma No 02/01/2018 7:30 AM Number of days: 20 MNT Billing Type: Re-assess/15 min 4 units SIGNATURE: Viry Mosher RD, LD PATIENT NAME: Naveen Akins DATE: February 01, 2018 TIME: 10:57 AM PAGER: [phone] ABDOMEN 1 VIEW Observed: 02/01/2018 Status: F Source: [facility] 10:06 AM HEALTH SYSTEM REPOSITORY Performed at [facility] APPROVED BY: GILBERT NAVARRO MD ABDOMEN, 1 VIEW. CLINICAL INFORMATION: Abdominal pain TECHNIQUE: Supine abdomen, 1 image(s) COMPARISON: 01/23/2018 RESULT: Previously seen NG tube is been removed. G-tube seen in the LEFT upper quadrant. Right femoral catheter. There are no dilated bowel loops. Degenerative changes in the spine. No pathologic calcifications. IMPRESSION: NO ACUTE ABNORMALITY PROCEDURE Observed: 02/01/2018 Status: COMPLETED Source: [place] 8:57 AM [facility] REPOSITORY HNO ID: [id number] Author: Stacey Garcia) MAGALY Henry Service: PICC Team Author Type: Registered Nurse Type: Procedures Filed: 02/01/2018 9:03 AM Note Text: PICC/MIDLINE CATHETER GUIDEWIRE EXCHANGE DATE OF PROCEDURE: February 01, 2018 TIME OF PROCEDURE: 815 ORDERING PHYSICIAN: Dr Paniagua INFORMED CONSENT: obtained per hospital policy. INDICATION FOR LINE PLACEMENT: Vesicant medication-high risk for extravasation CONDITION OF LINE PLACEMENT: Sterile PRIMARY PROCEDURALIST: Stacey Henry RN VISUAL ARTS TEACHER: Beena ePna PRE-PROCEDURE REVIEW ALLERGIES No Known Allergies Known history of Venous Thrombosis: No Known history of Permanent Pacemaker or Automated Implanted Cardiac Device: No Previous breast surgery of lymph node dissection: No History of renal disease with Arterio-Venous fistula in place or planned?: No Ultrasound assessment complete: Yes PROCEDURE NARRATIVE SAFE PRACTICE Hand hygiene per hospital policy: Yes Skin preparation used: Chloraprep (CHG + alcohol), allowed to dry Procedure surface cleansed with antimicrobial wipes: Yes Barriers used by Proceduralist and all assisting personnel: Yes UNIVERSAL PROTOCOL / SAFETY CHECKLIST Procedure to be performed: PICC Exchange Sign in Communication: Completed Time Out: Team Confirms the Correct Patient, Correct Procedure, Correct Site and Site Marking, Correct Position (if applicable), Prep and Dry Time (if applicable). Time: 0810 Affirmation of Time Out: N/A Sign Out Discussion: Completed, reported off to bedside RN that PICC is ok to use. Stacey Henry RN CATHETER REQUIRING PLACEMENT: PICC REASON FOR REPLACEMENT: PICC not in optimal position Brand: Arrow Lot: [id number] Number of lumens: 2 Type of PICC: Power Injectable PICC Lumen size: 5.5 Chinese PLACEMENT TECHNIQUE Lidocaine: No Modified Seldinger Technique use to place line via the: Left Basilic Ultrasound Guidance: Yes Number of attempts at insertion: 1 Ensured control of guidewire during all aspects of the procedure: Yes Accounted for entire guidewire upon removal: Yes Internal length: 52 cm External length: 0 cm Trim length:52 cm Mid-Arm circumference above insertion site: 30 centimeters Post insertion pain level related to procedure: 0 Action taken to address pain: None needed Verified placement: Blood return, Ultrasound and Tip location system or device indicates the tip is located in the SVC/CAJ Line was flushed with 20 cc normal saline Line secured with: Securement device Sterile dressing applied and dated: Yes with Biopatch Sterile caps on all ports prior to leaving procedure area: Yes with curo caps SPECIMENS: None COMPLICATIONS: None Patient education materials: Placed in chart QUESTIONS or PROBLEMS: Call [phone] SIGNATURE: Stacey Henry RN PATIENT NAME: Naveen Akins DATE: February 01, 2018 TIME: 8:58 AM PAGER: [phone] PROGRESS Observed: 02/01/2018 Status: COMPLETED Source: [place] 8:02 AM [facility] REPOSITORY O ID: [id number] Author: Vicky Devi MD Service: Nephrology Author Type: Physician Type: Progress Notes Filed: 02/01/2018 8:08 AM Note Text: Nephrology Progress Note Following for TERENCE. Pt is trached. Remains on ventilator. On FIO2 35%. Off BP pressros Cannot do ROS. Current Inpatient Medications: Current Facility-Administered Medications Ordered in Epic: calcium gluconate 2 g in NaCl 0.9% 100 mL 2 g INTRAVENOUS ONCE Dionicio (Res) Stevens Parenteral Nutrition - Adult INTRAVENOUS ONCE TPN (1800 START) Perla Dudley Last Rate: 62.5 mL/hr at 02/01/18 0730 midodrine (PROAMITINE) tab(s) 15 mg 15 mg PEG q 8 H Lora Soliz 15 mg at 02/01/18 0440 pantoprazole 40 mg injection (PROTONIX) 40 mg INTRAVENOUS DAILY (6 AM) oLra Soliz 40 mg at 02/01/18 0439 carboxymethylcellulose sodium 1-2 Drop (CELLUVISC) 1-2 Drop BOTH EYES TID Lora Soliz 2 Drop at 01/31/182111 0.9% NaCl 10 mL 10 mL INTRAVENOUS q 12 H Lora Soliz 0.9% NaCl 20 mL 20 mL INTRAVENOUS PRN Lora Soliz hydrocortisone sodium succinate (PF) 25 mg injection (Solu- CORTEF) 25 mg INTRAVENOUS q 8 H Lora Soliz 25 mg at 02/01/18438 ipratropium-albuterol 3 mL nebulizer solution (DUONEB) 3 mL INHALATION QID Lora Soliz 3 mL at 01/31/18 193 metoclopramide HCl 5 mg injection (REGLAN) 5 mg INTRAVENOUS q 12 H Lora Soliz 5 mg at 01/31/182118 0.9% NaCl 10 mL 10 mL INTRAVENOUS q 12 H Dionicio (Res) Stevens 10 mL at 01/31/182119 0.9% NaCl 20 mL 20 mL INTRAVENOUS PRN Dionicio (Res) Stevens potassium chloride 80-120 mEq oral liquid 80-120 mEq ORAL/FEEDING TUBE PRN Maggi (Res) Verghese potassium chloride iv piggyback 20 mEq in sterile water 100 mL 20 mEq INTRAVENOUS PRN Maggi (Res) [place] magnesium sulfate in water 2 g in sterile water 50 ml 2 g INTRAVENOUS PRN Maggi (Res) [place]se sodium phosphate 45 mmol in NaCl 0.9% 250 mL 45 mmol INTRAVENOUS PRN Maggi (Res) [place]hese Last Rate: 41.67 mL/hr at 01/29/18 0342 45 mmol at 01/29/18 0342 calcium gluconate 4 g in NaCl 0.9% 250 mL 4 g INTRAVENOUS PRN Maggi (Res) [place] Stopped at 02/01/18 0627 fentaNYL 50 mcg/mL 25-50 mcg injection (SUBLIMAZE) 25-50 mcg INTRAVENOUS q 2 H PRN Venkat Paniagua 25 mcg at 02/01/18 0625 meropenem 500 mg in NaCl 0.9% 100 mL MB+ (MERREM) 500 mg INTRAVENOUS q 8 H Dorcas Mckeon Decoy Last Rate: 200 mL/hr at 02/01/18 0440 500 mg at 02/01/18 0440 budesonide 0.5 mg/2 mL 0.5 mg (PULMICORT) 0.5 mg INHALATION BID Dorcas Mike Decoy 0.5 mg at 01/31/18 1935 senna leaf extract 176 mg/5 mL 528 mg 15 mL OROGASTRIC BID Dionicio (Res) Stevens 528 mg at 01/31/18 211 carboxymethylcellulose sodium 1-2 Drop (CELLUVISC) 1-2 Drop BOTH EYES PRN Venkat Paniagua 2 Drop at 01/26/18 1625 polyvinyl alcohol-povidone 1.4-0.6 % 1 Drop (REFRESH) 1 Drop BOTH EYES QID PRN Paulo (Meter Repair Shop Supervisor) Hudock 1 Drop at 01/26/18 1724 heparin 1,000 unit/mL 4,000 Units injection 4,000 Units INTRAVENOUS 3 Times weekly with dialysis Troy Godoy 2,800 Units at 01/30/18 1710 heparin 5,000 Units injection 5,000 Units SUBCUTANEOUS q 12 H Mervin (Res) Wally 5,000 Units at 01/31/18 2119 NaCl 0.9% 1,000 mL iv bolus 1,000 mL INTRAVENOUS PRN DIALYSIS Shen Lorenzo 1,000 mL at 01/26/18 1116 dextrose 40 % 15 g 15 g ORAL PRN Jack Regula Or glucagon 1 mg injection (GLUCAGEN) 1 mg INTRAMUSCULAR PRN Jack Regula Or dextrose 50% in water 25 mL syringe 12.5 g INTRAVENOUS PRN Jack Regula magnesium sulfate 1 g in D5W 100 mL 1 g INTRAVENOUS PRN Emilie (Res) Cardella Last Rate: 100 mL/hr at 01/15/18 0016 1 g at 01/15/18 0016 magnesium sulfate in water 2 g in sterile water 50 ml 2 g INTRAVENOUS PRN Emilie (Res) Cardella Last Rate: 25 mL/hr at 01/13/18 1004 2 g at 01/13/18 1004 NORepinephrine 16 mg in D5W 250 mL (LEVOPHED) 0-30 mcg/min INTRAVENOUS CONTINUOUS Dionicio (Res) Stevens Last Rate: 1.88 mL/hr at 02/01/18 0434 2 mcg/min at 02/01/18 0434 Chlorhexidine Gluconate 0.12 % 15 mL (PERIDEX) 15 mL ORAL q 12 H Elder Yu) Kalee 15 mL at 01/31/18 2110 No current Epic-ordered outpatient prescriptions on file. Vitals: BP 109/60 Pulse 90 Temp 36.8 ?C (98.2 ?F) (Temporal Artery) Resp 27 Ht 172.7 cm (5' 7.99) Wt 85.5 kg (188 lb 7.9 oz) SpO2 98% BMI 28.67 kg/m? BLOOD PRESSURE RANGE: Systolic (24hrs), Av , Min:108 , Max:108 ; Diastolic (24hrs), Av, Min:53, Max:53 24HR INTAKE/OUTPUT: Intake/Output Summary (Last 24 hours) at 02/01/18 0802 Last data filed at 02/01/18 0730 Gross per 24 hour Intake 2227 ml Output 825 ml Net 1402 ml Physical exam: Constitutional: NAD? Skin: no rash, turgor wnl Heent: Trached Neck: no bruits or jvd noted Cardiovascular: ?S1, S2 normal without m/r/g Respiratory: Coarse breath sound bilaterally Abdomen: ?+bs, soft, nt, nd Ext: trace?lower extremity edema Data: Labs: Recent Labs 02/01/18 0400 01/31/18 0415 01/30/18 0555 WBC 10.77* 7.98 7.65 HB 8.0* 7.2* 7.3* HCT 24.8* 22.4* 22.4* MCV 86.7 88.2 87.2 PLT 215 208 188 Recent Labs 02/01/18 0400 01/31/18 2350 01/31/18 1800 01/31/18 0415 01/30/18 1100 NA 140 -- -- -- 142 143 K 3.6 -- -- -- 3.6 3.7 CO2 24 -- -- -- 21 29 MG 1.9 1.9 1.9 < > 2.3 2.3 BUN 59* -- -- -- 63* 41* CREAT 2.32* -- -- -- 2.33* 1.40* CA 7.0* -- -- -- 7.4* 7.5* < > = values in this interval not displayed. Assessment and Plan 1. Acute kidney injury on chronic kidney disease stage 3. Baseline SCr is 1.36 mg/dL on 11/14/17. CKD is likely due to nephrosclerosis related to PAD. TERENCE is secondary to ischemic ATN from shock. Off NE gtt. Pt may be making some urine (difficult to quantify since he is incontinent). Cr is stable at 2.3 mg/dL for 12 hours CVVHDF was stopped 01/31. I will hold on HD session today Will continue to monitor for kidney function recovery. Keep MAP > 65 ? 2. Shock. Stable. Initially due to hemorrhagic shock-massive blood loss from ruptured AAA +/- adrenal insufficiency. Currently off NE gtt. On hydrocortisone. ? 3. Ruptured AAA. s/p repair 01/12/18. Management as per vascular surgery. ? 4. Acute hypoxic respiratory failure. Ventilator dependent. Vent management as per pulmonary/CCM. ? 5. Encephalopathy. Neuro evaluation in progress. Eventual MRI. ? Will d/w Dr. Soliz Renal team will continue to follow VICKY DEVI MD PROGRESS Observed: 02/01/2018 Status: COMPLETED Source: [place] 6:24 AM [facility] REPOSITORY [facility] ID: [id number] Author: Dionicio Stevens Service: Vascular Surgery Author Type: Resident Type: Progress Notes Filed: 02/01/2018 11:54 AM Note Text: Attestation signed by Venkat Paniagua at 02/02/2018 3:26 PM I saw and evaluated the patient. Discussed with the resident and agree with resident's findings and plan as documented in the resident's note. Discussion held with family with regard to the patient's status. Overall he seems to be stable still with essentially a persistent vegetative type state. At this juncture we are switching over to intermittent dialysis which he tolerated marginal yesterday we are going to try again tomorrow for another dialysis run. He is going to get a tunneled catheter at the end of the week and possibly sometime early next week he could be moved to a long- term acute care facility. I discussed this with the family and they are coming to student success coach with the fact that he is probably going to be moving from here to a different facility still receiving a high level of care. Vascular Surgery Progress Note SERVICE DATE: 02/01/2018 Vascular AND Thoracic Surgery Service Pager: For questions or concerns Mon-Fri 6a-5p please page [phone]. After 5pm and on Weekends and Holidays, please page [phone] if in ICU or [phone] if on RNF. Subjective SUBJECTIVE: NAEON Diet: Parenteral Nutrition - Adult Objective OBJECTIVE: Vitals: Temp (24hrs), Av ?C (98.6 ?F), Min:36.2 ?C (97.2 ?F), Max:37.7 ?C (99.9 ?F) BP 109/60 Pulse 100 Temp 36.8 ?C (98.2 ?F) (Temporal Artery) Resp (!) 32 Ht 172.7 cm (5' 7.99) Wt 85.5 kg (188 lb 7.9 oz) SpO2 98% BMI 28.67 kg/m? O2 Therapy: Ventilator IANDO: Date 01/31/18 07 - 02/01/18 0659 02/01/18 07 - 02/02/18 0659 Shift 7412-5017 4586-2430 2689-9524 24 Hour Total 6322-6433 8984-5443 6916-2744 24 Hour Total I N T A K E IV 849.9 241.1 213 1304 IVPB 660 197 857 NS 0.9% 75 31.6 190 296.6 NORepinephrine Volume 14.9 12.5 23 50.4 Meropenem (Merrem) 100 100 Blood Products 301 301 PRBC Intake (mL) 300 300 Packed Red Blood Cells Number of Units 1 1 TPN/PPN 622 622 TPN 622 622 Shift Total 849.9 542.1 835 2227 O U T P U T Urine 0 350 350 Tube Output ( Condom Catheter 01/31/18 1300 Assessment) 0 350 350 Drains 25 0 25 Negative Pressure: Output (mL) (Negative Pressure Wound Therapy 01/12/18 0749 Abdomen) 25 0 25 Tubes 100 350 450 Output (GI Feed/Drain 01/27/18 Assessment Gastrostomy) 100 350 450 Shift Total 125 0 700 825 Weight (kg) 85.5 85.5 85.5 85.5 85.5 85.5 85.5 85.5 MEDICATIONS Current Facility-Administered Medications: calcium gluconate 2 g in NaCl 0.9% 100 mL 2 g INTRAVENOUS ONCE Parenteral Nutrition - Adult INTRAVENOUS ONCE TPN (1800 START) midodrine (PROAMITINE) tab(s) 15 mg 15 mg PEG q 8 H pantoprazole 40 mg injection (PROTONIX) 40 mg INTRAVENOUS DAILY (6 AM) carboxymethylcellulose sodium 1-2 Drop (CELLUVISC) 1-2 Drop BOTH EYES TID 0.9% NaCl 10 mL 10 mL INTRAVENOUS q 12 H 0.9% NaCl 20 mL 20 mL INTRAVENOUS PRN hydrocortisone sodium succinate (PF) 25 mg injection (Solu- CORTEF) 25 mg INTRAVENOUS q 8 H ipratropium-albuterol 3 mL nebulizer solution (DUONEB) 3 mL INHALATION QID metoclopramide HCl 5 mg injection (REGLAN) 5 mg INTRAVENOUS q 12 H 0.9% NaCl 10 mL 10 mL INTRAVENOUS q 12 H 0.9% NaCl 20 mL 20 mL INTRAVENOUS PRN potassium chloride 80-120 mEq oral liquid 80-120 mEq ORAL/FEEDING TUBE PRN potassium chloride iv piggyback 20 mEq in sterile water 100 mL 20 mEq INTRAVENOUS PRN magnesium sulfate in water 2 g in sterile water 50 ml 2 g INTRAVENOUS PRN sodium phosphate 45 mmol in NaCl 0.9% 250 mL 45 mmol INTRAVENOUS PRN calcium gluconate 4 g in NaCl 0.9% 250 mL 4 g INTRAVENOUS PRN fentaNYL 50 mcg/mL 25-50 mcg injection (SUBLIMAZE) 25-50 mcg INTRAVENOUS q 2 H PRN meropenem 500 mg in NaCl 0.9% 100 mL MB+ (MERREM) 500 mg INTRAVENOUS q 8 H budesonide 0.5 mg/2 mL 0.5 mg (PULMICORT) 0.5 mg INHALATION BID senna leaf extract 176 mg/5 mL 528 mg 15 mL OROGASTRIC BID carboxymethylcellulose sodium 1-2 Drop (CELLUVISC) 1-2 Drop BOTH EYES PRN polyvinyl alcohol-povidone 1.4-0.6 % 1 Drop (REFRESH) 1 Drop BOTH EYES QID PRN heparin 1,000 unit/mL 4,000 Units injection 4,000 Units INTRAVENOUS 3 Times weekly with dialysis heparin 5,000 Units injection 5,000 Units SUBCUTANEOUS q 12 H NaCl 0.9% 1,000 mL iv bolus 1,000 mL INTRAVENOUS PRN DIALYSIS dextrose 40 % 15 g 15 g ORAL PRN Or glucagon 1 mg injection (GLUCAGEN) 1 mg INTRAMUSCULAR PRN Or dextrose 50% in water 25 mL syringe 12.5 g INTRAVENOUS PRN magnesium sulfate 1 g in D5W 100 mL 1 g INTRAVENOUS PRN magnesium sulfate in water 2 g in sterile water 50 ml 2 g INTRAVENOUS PRN NORepinephrine 16 mg in D5W 250 mL (LEVOPHED) 0-30 mcg/min INTRAVENOUS CONTINUOUS Chlorhexidine Gluconate 0.12 % 15 mL (PERIDEX) 15 mL ORAL q 12 H Labs: Recent Labs 02/01/18 0400 01/31/18 2350 01/31/18 1035 01/31/18 0415 01/30/18 1100 01/30/18 0555 NA 140 -- -- -- 142 143 142 K 3.6 -- -- -- 3.6 3.7 3.5 CHLOR 103 -- -- -- 106 107 106 CO2 24 -- -- -- 21 29 25 BUN 59* -- -- -- 63* 41* 43* CREAT 2.32* -- -- -- 2.33* 1.40* 1.45* GLUC 190* -- -- -- 186* 177* 177* ANION 17* -- -- -- 19* -- -- CA 7.0* -- -- -- 7.4* 7.5* 6.9* MG 1.9 1.9 < > -- 2.3 2.3 2.3 P 4.6 -- -- -- 4.3 3.3 3.1 ALB -- -- -- -- -- 1.0* 1.0* AST -- -- -- -- -- -- 84* ALT -- -- -- -- -- -- 60 ALKPHOS -- -- -- -- -- -- 178* TBILI -- -- -- -- -- -- 6.0* WBC 10.77* -- -- -- 7.98 -- 7.65 HB 8.0* -- -- -- 7.2* -- 7.3* HCT 24.8* -- -- -- 22.4* -- 22.4* PLT 215 -- -- -- 208 -- 188 PH -- -- -- 7.523* -- -- -- PCO2 -- -- -- 29.6* -- -- -- PO2 -- -- -- 156.7* -- -- -- BE -- -- -- 1.1 -- -- -- < > = values in this interval not displayed. Exam: GENERAL: No distress NEURO: Opens eyes, no tracking, not following HEENT: normocephalic, atraumatic, Trach intact LUNGS: Unlabored breathing O2 Therapy: Ventilator CARDIAC: AFib, mild tachy ABDOMEN: Soft, non-tender, non-distended, VAC, PEG, and retention sutures intact EXTREMITIES: MAK, No deformities, No edema, palpable pulses SKIN: Skin color, texture, turgor normal, No rashes or lesions ASSESSMENT AND PLAN: Active Hospital Problems Diagnosis Date Noted - Ruptured abdominal aortic aneurysm (AAA) ([facility]) 01/12/2018 - TERENCE (acute kidney injury) ([facility]) 01/30/2018 - Ileus ([facility]) 01/30/2018 - Acute liver failure without hepatic coma 01/30/2018 - Obesity, Class I, BMI 30-34.9 01/16/2018 - Anoxic encephalopathy ([facility]) 01/13/2018 - DIC (disseminated intravascular coagulation) ([facility]) 01/12/2018 - Acute respiratory failure (HCC) 01/12/2018 - Cardiac arrest (HCC) 01/12/2018 - AAA (abdominal aortic aneurysm, ruptured) (HCC) 01/12/2018 Overview Note: Added automatically from request for surgery [id number] 77 year old male with Ruptured AAA s/p Emergent Repair, takeback washout, repair of serosal tears x2, on 01/12, hemorrhagic shock, acute resp failure with pulm edema, TERENCE, SVT, s/p Third Look Laparotomy and?washout on 01/14, fourth look, washout, vac change on 01/16, Partial fascial closure on 01/19, Fascial closure/Retention Sutures on 01/21, Trach and PEG on 01/27 ? - Trach Vent mgmt per MICU - NPO/TPN - Acute blood loss and dilutional anemia and thrombocytopenia - monitor, stable - TERENCE -->?CVVHD stopped yesterday per?Nephro, IHD - Meropenum for E-bacter HCAP - Cont WV --> wound care following for VAC changes - Solucortef 50mg q8h per MICU - Leukocytosis - cont Abx for HCAP - Acute blood loss/dilutional anemia - s/p 1u pRBCs yesterday, monitor - Levo wean as able - Sedation off - Reglan, PEG to drain - Daily CXR stable bilateral infiltrates nt significantly changed by my read - LUE PICC - Hypocalcemia - replacing - Code Status: family wants to maintain Full Code status ?? Assessment and plan discussed with attending: Dr. Paniagua SIGNATURE: Dionicio Stevens MD PATIENT NAME: Naveen Akins DATE: February 01, 2018 TIME: 6:24 AM Vascular AND Thoracic Surgery Service Pager: For questions or concerns Mon-Tue 6a-5p please page [phone]. After 5pm and on Weekends and Holidays, please page [phone] if in ICU or [phone] if on RNF. CHEST 1 VIEW Observed: 02/01/2018 Status: F Source: [facility] 4:52 AM HEALTH SYSTEM REPOSITORY Performed at [facility] APPROVED BY: Justino Rodriguez MD EXAMINATION: CHEST RADIOGRAPH (SINGLE VIEW AP PORTABLE UPRIGHT) Clinical History: Evaluate tube, line or lead position. M: XC1_4 Comparison: AP chest 01/23/2018 16:41 RESULT: Lines, tubes, and devices: Right IJ central venous catheter with tip overlying the right atrium is in similar position. Left arm PICC line and tracheostomy tube in similar position. Lungs and pleura: Increased density in the left lung base most likely due to subsegmental atelectasis. Lungs are otherwise grossly clear. No pneumothorax. No definite pleural effusion. Cardiomediastinal silhouette: Cardiac silhouette size is within normal limits. Other: IMPRESSION: Increased subsegmental atelectasis in left lung base. Stable appearance of life support devices. IONIZED CALCIUM Collected: 02/01/2018 Status: F Source: [facility] 4:00 PENDING SALE TO [facility] REPOSITORY TYPE CODE TESTS RESULT OUT OF REFERENCE UNITS RANGE LAB CAION(LOINC 4.43-4.93 mg/dL ) Low Ionized 3.90 Calcium LAB PHCAI(LOINC 7.320-7.420 ) pH High 7.530 LAB CAPH(LOINC) 4.36-4.73 mg/dL Low Ionized 4.17 Ca,PH7.4 Performed By: #### IONCA #### [place] [address] HEMOGRAM/DIFF Collected: 02/01/2018 Status: F Source: [facility] 4:00 HEALTH SYSTEM REPOSITORY TYPE CODE TESTS RESULT OUT OF REFERENCE UNITS RANGE LAB WBC(LOINC) 4.23-9.07 thou/cmm WBC High 10.77 LAB RBC(LOINC) 4.63-6.08 mil/cmm Low RBC 2.86 LAB HGB(LOINC) 13.7-17.5 g/dL Low Hgb 8.0 LAB HCT(LOINC) 40.1-51.0 % Low Hct 24.8 LAB MCV(LOINC) 83.2-95.6 fl MCV 86.7 LAB MCH(LOINC) 25.7-32.2 pg MCH 28.0 LAB MCHC(LOINC 32.3-36.5 % ) MCHC 32.3 LAB RDW(LOINC) 11.6-14.4 % RDW High 18.9 LAB RDWSD(LOIN 36.1-45.8 fl C) RDW SD High 59.1 LAB PLT(LOINC) 141-365 thou/cmm Platelet 215 LAB MPV(LOINC) 8.7-12.0 fl MPV High 12.3 LAB SEG(LOINC) % Seg Neutrophil 78.0 LAB IGRE(LOINC % ) Immature Grans 10.90 LAB LYMPH(LOIN % C) Lymphocyte 7.0 LAB MNO(LOINC) % Monocyte 4.0 LAB EOSIN(LOIN % C) Eosinophil 0.0 LAB BASO(LOINC % ) Basophil 0.1 LAB SEGN(LOINC 1.78-5.38 thou/cmm ) Abs. High Neut (ANC) 8.40 LAB IGAB(LOINC 0.00-0.05 thou/cmm ) Abs High Immature Grans 1.17 LAB LYMN(LOINC 0.84-2.85 thou/cmm ) Low Abs. Lymph 0.75 LAB MONON(LOIN 0.30-0.82 thou/cmm C) Abs. Rincon 0.43 LAB EOSN(LOINC 0.04-0.54 thou/cmm ) Low Abs. Eosin 0.00 LAB BASON(LOIN 0.01-0.08 thou/cmm C) Abs. Baso 0.01 Performed By: #### CBCD1 #### [place] [address] BASIC PANEL Collected: 02/01/2018 Status: F Source: [facility] 4:00 AM HEALTH SYSTEM REPOSITORY TYPE CODE TESTS RESULT OUT OF REFERENCE UNITS RANGE LAB NA(LOINC) 136-145 mEq/L Sodium Blood 140 LAB K(LOINC) 3.5-5.1 mEq/L Potassium Blood 3.6 LAB CL(LOINC) 98-107 mEq/L Chloride Blood 103 LAB CO2(LOINC) 21-32 mEq/L CO2 Blood 24 LAB GLU(LOINC) 70-99 mg/dL Glucose High Blood 190 LAB BUN(LOINC) 7-18 mg/dL BUN High Blood 59 LAB CREA(LOINC 0.67-1.17 mg/dL ) High Creatinine Blood 2.32 LAB CA(LOINC) 8.5-10.1 mg/dL Low Calcium Blood 7.0 LAB ANGAP(LOIN 8-16 C) Anion High Gap 17 Performed By: #### P8 #### [place] [address] MAGNESIUM BLOOD Collected: 02/01/2018 Status: F Source: [facility] 4:00 AM HEALTH SYSTEM REPOSITORY TYPE CODE TESTS RESULT OUT OF REFERENCE UNITS RANGE LAB MAG(LOINC) 1.6-2.6 mg/dL Magnesium Blood 1.9 Performed By: #### MAG #### [facility] [address] [place] [address] PHOSPHORUS BLOOD Collected: 02/01/2018 Status: F Source: [facility] 4:00 AM HEALTH SYSTEM REPOSITORY TYPE CODE TESTS RESULT OUT OF REFERENCE UNITS RANGE LAB PHOS(LOINC 2.5-4.9 mg/dL ) Phosphorus Blood 4.6 Performed By: #### PHOS #### [facility] [address] [place] [address] MAGNESIUM BLOOD Collected: 01/31/2018 Status: F Source: [facility] 11:50 PM HEALTH SYSTEM REPOSITORY TYPE CODE TESTS RESULT OUT OF REFERENCE UNITS RANGE LAB MAG(LOINC) 1.6-2.6 mg/dL Magnesium Blood 1.9 Performed By: #### MAG #### [facility] [address] [place] [address] MAGNESIUM BLOOD Collected: 01/31/2018 Status: F Source: [facility] 6:00 PM HEALTH SYSTEM REPOSITORY TYPE CODE TESTS RESULT OUT OF REFERENCE UNITS RANGE LAB MAG(LOINC) 1.6-2.6 mg/dL Magnesium Blood 1.9 Performed By: #### MAG #### [facility] [address] [place] [address] RBC PRODUCTS Collected: 01/31/2018 Status: F Source: [facility] 5:23 PM HEALTH SYSTEM REPOSITORY TYPE CODE TESTS RESULT OUT OF REFERENCE UNITS RANGE LAB UNIT1(LOINC ) Xmatch Unit 1 see below Result Comment: Compatible Performed By: #### RBCPS #### [place] [address] CHEST 1 VIEW Observed: 01/31/2018 Status: F Source: [facility] 4:49 PM HEALTH SYSTEM REPOSITORY Performed at [facility] APPROVED BY: Moy Zelaya MD EXAMINATION: CHEST RADIOGRAPH (SINGLE VIEW AP OR PA) Clinical History: PICC line placement. M: XC1_4 Comparison: Chest radiograph same date at 0524 hours. RESULT: Lines, tubes, and devices: Tracheostomy tube unchanged. Right IJ central venous catheter with tip at upper right atrial level, unchanged. New left upper extremity central venous catheter with tip at upper SVC level. Lungs and pleura: Lung volumes are low but appear grossly clear. No confluent infiltrate, pneumothorax, or pleural effusion. Cardiomediastinal silhouette: Stable. Heart size is not grossly enlarged. Thoracic aorta appears slightly tortuous. Other: Bony structures unchanged. IMPRESSION: Support devices as discussed. New left upper extremity catheter with tip at upper SVC level. Lungs are grossly clear. PT ED Observed: 01/31/2018 Status: COMPLETED Source: [place] 4:41 PM [facility] REPOSITORY HNO ID: [id number] Author: Paulo TylerRn) MAGALY Fernando Service: PICC Team Author Type: Registered Nurse Type: Patient Education Filed: 01/31/2018 4:43 PM Note Text: PATIENT EDUCATION TOPIC: PROCEDURE / SURGERY: Procedure/Surgery: picc PATIENT NAME: Naveen Akins PATIENT LOCATION: [place] [address]/[place] [address]* READINESS TO LEARN COGNITIVE ABILITY: sedated MOTIVATION TO LEARN: Critically Ill FAMILY SUPPORT: Unable to assess - Family not present INSTRUCTION PROVIDED TO: No one available PATIENT LEARNS BEST BY: Unable to Assess FACTORS AFFECTING LEARNING: Unable to assess PHYSICAL LIMITATIONS AFFECTING LEARNING: Critically ill LEARNING RESPONSE DIAGNOSIS: ADULT: Acute renal failure abd ruptured AAA PATIENT/FAMILY RESPONSE: Does not verbalize understanding: sedated METHOD OF INSTRUCTION: critically ill, sedated FOLLOW-UP PLAN: Complete - No need for follow-up INSTRUCTIONAL AIDS USED: Picc Line Book SUPPLEMENTAL MATERIAL PROVIDED TO PATIENT: Brochures given to patient: BROCHURE [[id number]] REFERRAL (RECOMMENDATION): None Electronically Signed By: Paulo Fernando RN SEE PATIENT EDUCATION SECTION OF THE EMR PROCEDURE Observed: 01/31/2018 Status: COMPLETED Source: [place] 4:30 PM [facility] REPOSITORY HNO ID: [id number] Author: Stacey TylerRn) MAGALY Henry Service: PICC Team Author Type: Registered Nurse Type: Procedures Filed: 01/31/2018 5:19 PM Note Text: PICC NURSE INSERTION NOTE DATE OF PROCEDURE: January 31, 2018 TIME OF PROCEDURE: 1520 ORDERING PHYSICIAN: DR Paniagua INFORMED CONSENT: Obtained per hospital policy. INDICATION FOR LINE PLACEMENT: Vesicant medication-high risk for extravasation CONDITION OF LINE PLACEMENT: Sterile PRIMARY PROCEDURALIST: Stacey Henry RN VISUAL ARTS TEACHER: Demi Fernando RN PRE-PROCEDURE REVIEW ALLERGIES No Known Allergies Known History of Venous Thrombosis: No Known History of Permanent Pacemaker or Automated Implanted Cardiac Device: No Previous Breast Surgery of Lymph Node Dissection: No History of Renal Disease with Arterio-Venous Fistula in Place or Planned: No Ultrasound Assessment Complete: Yes PROCEDURE NARRATIVE SAFE PRACTICE Hand Hygiene per Hospital Policy: Yes Skin Preparation Unit Dose Applicator Used: Chloraprep (CHG + alcohol), allowed to dry. Procedure Surface Cleansed with Antimicrobial Wipes: Yes Barriers Used by Proceduralist and all Assisting Personnel: Yes UNIVERSAL PROTOCOL / SAFETY CHECKLIST Procedure to be performed: PICC Insertion Sign in Communication: Completed Time Out: Team Confirms the Correct Patient, Correct Procedure, Correct Site and Site Marking, Correct Position (if applicable), Prep and Dry Time (if applicable). Time: 1520 Affirmation of Time Out: N/A Sign Out Discussion: Completed, reported off to MAGALY Vides that CXR ordered for tip confirmation and not to use PICC until cleared by Vascular Access Nurse, [address] Zelaya, tip off PICC is in proximal SVC, not optimal tip placement for TPN. Plan is to continue to use QLC for TPN and will exchange PICC in AM. Discussed plan with RN Stacey Henry RN CATHETER PLACEMENT Brand: ARROW Lot: [id number] Number of Lumens: 2 Type of PICC: Power Injectable PICC Lumen Size: 5.5 Chinese Arrow PLACEMENT TECHNIQUE Lidocaine: Yes. Strength: 1% Volume 0.1 ml Modified Seldinger Technique Used to Place Line via the Left Basilic Ultrasound Guidance: Yes Number of Attempts at Insertion: 1 Ensured control of guidewire during all aspects of the procedure: Yes Accounted for entire guidewire upon removal: Yes Internal Length: 47 cm External Length: 1 cm Trim Length: 48 cm Mid-Arm Circumference Above Insertion Site: 30 centimeters Post Insertion Pain Level Related to Procedure: 0 Action Taken to Address Pain: None needed Verified Placement: Blood return, Ultrasound and Chest X-ray ordered and pending Line was Flushed with 20 cc normal saline Line Secured with: Securement device Sterile Dressing Applied and Dated: Yes Sterile Caps on all Ports Prior to Leaving Procedure Area: Yes SPECIMENS: None COMPLICATIONS: None Patient Education Materials: Placed in chart [facility] General Central Line Insertion Checklist utilized during this procedure QUESTIONS or PROBLEMS: Call [phone] SIGNATURE: Stacey Henry RN PATIENT NAME: Naveen Akins DATE: January 31, 2018 TIME: 4:30 PM PAGER/CONTACT PHONE: RBC PRODUCTS Collected: 01/31/2018 Status: F Source: [facility] 4:30 PM HEALTH SYSTEM REPOSITORY TYPE CODE TESTS RESULT OUT OF REFERENCE UNITS RANGE LAB UNIT1(LOINC ) Xmatch Unit 1 see below Result Comment: Compatible Performed By: #### RBCPS #### [place] [address] TYPE AND SCREEN Collected: 01/31/2018 Status: F Source: [facility] 4:30 PM HEALTH SYSTEM REPOSITORY TYPE CODE TESTS RESULT OUT OF REFERENCE UNITS RANGE LAB ABO(LOINC) O ABO Group LAB CREATIVE DEVELOPER(LOINC ) RH Type Positive LAB ABSCR(LOIN C) Antibody NEGATIVE Screen LAB BBCMT(LOIN C) Comment See Below Result Comment: Screen &/or Xmatch expires in 3 days at 12 midnight. Redraw patient at that time. Performed By: #### T&S #### [place] [address] RBC PRODUCTS Collected: 01/31/2018 Status: F Source: [facility] 4:30 PM HEALTH SYSTEM REPOSITORY TYPE CODE TESTS RESULT OUT OF REFERENCE UNITS RANGE LAB UNIT1(LOINC ) Xmatch Unit 1 see below Result Comment: Compatible Performed By: #### RBCPS #### [place] [address] ALLIED HEALTH Observed: 01/31/2018 Status: COMPLETED Source: [place] 4:07 PM CLINIC OTHER CAMPUS REPOSITORY HNO ID: [id number] Author: Chaplain Serna (Chaplain) Service: Spiritual Care Author Type: Envelope Stamping Machine Operator Type: Allied Health Filed: 01/31/2018 4:08 PM Note Text: SPIRITUALCARE Spiritual Care Visit- Brief Note Name: Naveen Akins Date: January 31, 2018 Notes: Checked in w/pt's fam; later offered silent prayer outside his door. Pt undergoing a procedure. Dtr arrived outside while I was praying for him. Envelope Stamping Machine Operator Signature: Chaplain Daphne To contact the Spiritual Care Department: Please call [phone] or Page the On-Call Envelope Stamping Machine Operator at pager [phone] Thank you for the opportunity to be of service. This is an electronically created document. IF PRINTED, PLEASE DO NOT REMOVE FROM THE CHART OR MODIFY PRINTED COPY. PROGRESS Observed: 01/31/2018 Status: COMPLETED Source: [place] 2:58 PM CLINIC OTHER CAMPUS REPOSITORY HNO ID: [id number] Author: Lora Soliz Service: Critical Care Author Type: Physician Type: Progress Notes Filed: 01/31/2018 3:16 PM Note Text: MICU - PROGRESS NOTE SERVICE DATE: 01/31/2018 SERVICE TIME: 2:58 PM Admission Date: 01/12/2018 AGE: [id number] year old LOS: 19 days REASON FOR ICU ADMISSION: Confusion and Delirium, Pneumonia, Renal Failure and Respiratory Failure Objective Coma Not tolerate HD Back low vasopressors Gt still 800cc /24 hrs tpn PAST MEDICAL HISTORY Diagnosis Date - DIC (disseminated intravascular coagulation) (HCC) 01/12/2018 PAST SURGICAL HISTORY Procedure Laterality Date - LAP CHOLECYSTECT/CHOLANGIOGRAPHY 05-28-09 - REPAIR UMBILICAL NATAN,5+Y/O,REDUC 05-28-09 Social History Marital status: Spouse name: Shelly Years of education: 11 Number of children: 4 Occupational History 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 BP 98/48 Pulse 103 Temp (Src) 99.9 (Temporal Artery) Resp 27 Ht 5' 7.992 (1.73m) Wt 188 lb 7.9 oz (85.5kg) SpO2 99% BMI 28.67 kg/(m2). Temp (24hrs), Av.3 ?C (99.1 ?F), Min:36.5 ?C (97.7 ?F), Max:37.7 ?C (99.9 ?F) NET FLUID BALANCE Intake/Output Summary (Last 24 hours) at 01/31/18 1458 Last data filed at 01/31/18 1400 Gross per 24 hour Intake 1878.9 ml Output 640 ml Net 1238.9 ml MEDICATIONS Current Facility-Administered Medications: Parenteral Nutrition - Adult INTRAVENOUS ONCE TPN (1800 START) Parenteral Nutrition - Adult INTRAVENOUS ONCE TPN (1800 START) hydrocortisone sodium succinate (PF) 25 mg injection (Solu- CORTEF) 25 mg INTRAVENOUS q 8 H ipratropium-albuterol 3 mL nebulizer solution (DUONEB) 3 mL INHALATION QID metoclopramide HCl 5 mg injection (REGLAN) 5 mg INTRAVENOUS q 12 H 0.9% NaCl 10 mL 10 mL INTRAVENOUS q 12 H 0.9% NaCl 20 mL 20 mL INTRAVENOUS PRN potassium chloride 80-120 mEq oral liquid 80-120 mEq ORAL/FEEDING TUBE PRN potassium chloride iv piggyback 20 mEq in sterile water 100 mL 20 mEq INTRAVENOUS PRN magnesium sulfate in water 2 g in sterile water 50 ml 2 g INTRAVENOUS PRN sodium phosphate 45 mmol in NaCl 0.9% 250 mL 45 mmol INTRAVENOUS PRN calcium gluconate 4 g in NaCl 0.9% 250 mL 4 g INTRAVENOUS PRN fentaNYL 50 mcg/mL 25-50 mcg injection (SUBLIMAZE) 25-50 mcg INTRAVENOUS q 2 H PRN midodrine 10 mg tab(s) (PROAMATINE) 10 mg PEG q 8 H meropenem 500 mg in NaCl 0.9% 100 mL MB+ (MERREM) 500 mg INTRAVENOUS q 8 H budesonide 0.5 mg/2 mL 0.5 mg (PULMICORT) 0.5 mg INHALATION BID pantoprazole 40 mg injection (PROTONIX) 40 mg INTRAVENOUS BID AC (0600/1600) docusate sodium oral liquid 100 mg/10 mL (DIOCTO,COLACE) 100 mg OROGASTRIC BID senna leaf extract 176 mg/5 mL 528 mg 15 mL OROGASTRIC BID carboxymethylcellulose sodium 1-2 Drop (CELLUVISC) 1-2 Drop BOTH EYES PRN polyvinyl alcohol-povidone 1.4-0.6 % 1 Drop (REFRESH) 1 Drop BOTH EYES QID PRN heparin 1,000 unit/mL 4,000 Units injection 4,000 Units INTRAVENOUS 3 Times weekly with dialysis heparin 5,000 Units injection 5,000 Units SUBCUTANEOUS q 12 H NaCl 0.9% 1,000 mL iv bolus 1,000 mL INTRAVENOUS PRN DIALYSIS dextrose 40 % 15 g 15 g ORAL PRN Or glucagon 1 mg injection (GLUCAGEN) 1 mg INTRAMUSCULAR PRN Or dextrose 50% in water 25 mL syringe 12.5 g INTRAVENOUS PRN magnesium sulfate 1 g in D5W 100 mL 1 g INTRAVENOUS PRN magnesium sulfate in water 2 g in sterile water 50 ml 2 g INTRAVENOUS PRN NORepinephrine 16 mg in D5W 250 mL (LEVOPHED) 0-30 mcg/min INTRAVENOUS CONTINUOUS Chlorhexidine Gluconate 0.12 % 15 mL (PERIDEX) 15 mL ORAL q 12 H Lines, Drains, and Airways Line Arterial Line 01/19/18 0840 Arterial Line Right Radial 12 days Central Line Quadruple Lumen 01/19/18 1056 Right Neck 12 days Dialysis / Apheresis Double Lumen 01/24/18 1400 Non-tunneled Right Groin 7 days Drain Drain/Tube 01/19/18 1015 Midline Abdomen 12 days GI Feed/Drain 01/27/18 Assessment Gastrostomy 4 days Drain/Tube 01/29/18 1909 Assessment Fecal Management System Rectum 1 day Airway Airway Tracheostomy 01/27/18 4 days PHYSICAL EXAMINATION: VITAL SIGNS: As documented General appearance:?Well-developed well-nourished. Good hygiene. IJ right, HD groin; right betty radial Skin:?Normal turgor. mild pallorous. ?Not diaphoretic. ? jaundice. lap scars and retention sutures; wound vac abd Eyes: Pupils equally reactive to light. ?downgoing. ?mild jaundice. ENT:?No palpable lymphadenopathy.?Normocephalic. no neck scar. ?No thyromegaly. No macroglossia. Supple neck; trach stitched Heme/Lymph:?No significant neck adenopathy. ? ?Lungs:?Clear to auscultation. ?Decent inspiratory capacity. ?No overt wheeze. ?No significant hyperinflation. ?No fibrotic rales. No pleural rub. No dyspnea at rest. No effusion Heart:?Regular rate and rhythm. ?Normal heart tones. ?No significant murmur. ?No peripheral edema. ?Normal P2 . Good perfusion distally radial. Bounding pulses. warm ABD: Abdomen soft, non-tender. Large retention sutures. PEG to suction. Bowel sounds normal. No masses, organomegaly. Large girth; FMS liquid/dark Musculoskeletal: Extremities flaccid. No deformities, no edema,. Neuro:?obtunded; no commands, passive, no verbal attempts; coma; anoxic Respiratory/Nursing Documentation: O2 Therapy: Ventilator (01/31/181247) Invasive Ventilator Mode: Pressure Regulated Volume Control (01/31/181247) Set Ventilator Respiratory Rate (BPM): 18 (01/31/181247) Total Respiratory Rate (BPM): 45 (01/31/181247) Tidal Volume Set (mL): 500 (01/31/181247) Exhaled Tidal Volume (mL): 404 (01/31/181247) Minute Volume (L): 17 (01/31/181247) Peak Inspiratory Pressure (cm H2O): 14 (01/31/181247) PEEP/CPAP (cm H2O): 5 (01/31/181247) HEMODYNAMIC DATA: reviewed NUTRITION: tpn Enteral Feeds: VENT: ac/ PRVC/5 peep/500/33 RR WEANS: held SEDATION: prn fent DRIPS: PRESSORS: norepi 3 CULTURE update: CXR FINDINGS: OTHER IMAGING: DATA: Diagnostic tests reviewed for today's visit: Most recent labs and imaging results REVIEWED. LABS: Recent Labs 01/31/18 1300 01/31/18 0415 01/30/18 1100 01/30/18 0555 WBC -- 7.98 -- 7.65 RBC -- 2.54* -- 2.57* HB -- 7.2* -- 7.3* HCT -- 22.4* -- 22.4* MCV -- 88.2 -- 87.2 PLT -- 208 -- 188 GLUC -- 186* 177* 177* BUN -- 63* 41* 43* CREAT -- 2.33* 1.40* 1.45* NA -- 142 143 142 K -- 3.6 3.7 3.5 CHLOR -- 106 107 106 CO2 -- 21 29 25 TPROT -- -- -- 4.8* ALB -- -- 1.0* 1.0* CA -- 7.4* 7.5* 6.9* ALKPHOS -- -- -- 178* TBILI -- -- -- 6.0* AST -- -- -- 84* ALT -- -- -- 60 MG 1.8 2.3 2.3 2.3 ABG: Recent Labs 01/31/18 1035 PH 7.523* PO2 156.7* PCO2 29.6* Assessment/Plan PROBLEMS: Patient Active Hospital Problem List: Ruptured abdominal aortic aneurysm (AAA) ([facility]) (01/12/2018) DIC (disseminated intravascular coagulation) ([facility]) (01/12/2018) Hemorrhagic shock (HCC) (01/12/2018) Acute respiratory failure ([facility]) (01/12/2018) Cardiac arrest ([facility]) (01/12/2018) Anoxic encephalopathy ([facility]) (01/13/2018) AAA (abdominal aortic aneurysm, ruptured) ([facility]) (01/12/2018) Obesity, Class I, BMI 30-34.9 (01/16/2018) TERENCE (acute kidney injury) ([facility]) (01/30/2018) Ileus (HCC) (01/30/2018) Acute liver failure without hepatic coma (01/30/2018) AAA rupture with msof, multiple reops, now fascial closure Persistent hypotension/ shock, low midodrine Severe anoxic enceph POOR OUTLOOK TERENCE on NURSE'S ASSISTANT, controlled azotemia but higher off cvvhd Recovered thrombocytopenia Vent dep resp failure, resp alkalosis from tachypnea Trach Peg Ileus/ gastroparesis Wound issues with wound vac Enterobacter LRTI , cxr fairly clear now; Left infiltrate better Shock Critical illness adrenal insuff Liver failure, cholestasis and post arrest shock hepatitis, mild improvement Hyperlipidemia TG 490 Severe anemia 7.2 Resolved ple effusions ? CRITICAL CARE PLAN: 1. psv trials failed, failed sbt but 16 days vent; some CheyneStokes periodic breathing due to service architect 2. Tpn at 1700kcal /day, ?low TF; reglan noted (EKG qtc 480) will decrease #; prealb 23 3. Cvvhd off; fluid even; remove fluid if off pressors 4. Taper steroids hydrocortisone 25mg 5. merrum 6. 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 Dc betty soon > 10 days, nil norepi 8. PICC ok with renal; cvl > 10 days; ?new tunneled HD cath soon? 9. ?pRBC tx to help stay off norepi, consider daily and if <7 10. Should be DNR, family been resistent per staff Critical Care Documentation: The patient has the following organ/system impairment(s): Acute kidney injury, Circulatory shock, Encephalopathy and Septic shock This patient has a high probability of sudden, clinically significant deterioration, which requires the highest level of physician preparedness to intervene urgently. I managed/supervised life or organ supporting interventions that required frequent physician assessment. I devoted my full attention to the direct care of this patient for the amount of time indicated below. Time I spent with family or surrogate(s) is included only if the patient was incapable of providing the necessary information or participating in medical decision making. Time devoted to teaching is not included. Patient Updated No Family Updated No Discussed with Staff Yes,INDEPENDENT SALES REPRESENTATIVE, Rn , Dr Lorenzo Time spent providing critical care services: 30 minutes excluding billable procedures. SIGNATURE: Lora Soliz MD PATIENT NAME: Naveen Akins DATE: January 31, 2018 TIME: 2:58 PM PROGRESS Observed: 01/31/2018 Status: COMPLETED Source: [place] 1:24 PM [facility] OTHER [place] REPOSITORY HNO ID: [id number] Author: Yamel TylerRn) MAGALY Young Service: Dialysis Author Type: Registered Nurse Type: Progress Notes Filed: 01/31/2018 1:27 PM Note Text: Hemodialysis completed, No fluid removed because BP dropped shortly after starting treatment but unclear whether it was hemodialysis or the recent Fentanyl that he received. Levophed was started and Blood flow rate was decreased. Patients resp rate was in the 40's Throughout treatment and large amounts of yellow sputum were suctioned from trach. Next HD per Nephrology. MAGNESIUM BLOOD Collected: 01/31/2018 Status: F Source: [facility] 1:00 PM HEALTH SYSTEM REPOSITORY TYPE CODE TESTS RESULT OUT OF REFERENCE UNITS RANGE LAB MAG(LOINC) 1.6-2.6 mg/dL Magnesium Blood 1.8 Performed By: #### MAG #### [place] [address] NUTRITION Observed: 01/31/2018 Status: COMPLETED Source: [place] 11:28 AM [facility] OTHER [place] REPOSITORY HNO ID: [id number] Author: Viry Mosher RD Service: NST-Nutrition Support Team Author Type: Registered Dietitian Type: Nutrition Filed: 01/31/2018 11:37 AM Note Text: Attestation signed by Perla Dudley at 02/06/2018 8:39 AM Discussed with the RD and agree with RD's findings and plan as documented in the RD's note. Cont TPN. Perla Dudley MD NUTRITION SUPPORT TEAM TOPIC: NUTRITION SUPPORT TEAM PROGRESS NOTE PATIENT NAME: Naveen Akins DATE OF : 1940 DATE: 01/31/2018 Nutritional Status: NO MALNUTRITION IDENTIFIED per RD 01/16/18 ? ? NUTRITION CARE PLAN: ? Problem, Etiology and Signs/Symptoms: Altered GI function related to potential ileus?as evidenced by lack of bowel sounds, distended abdomen, and hypotension. ? NST consult 01/16/18 for TPN support Interval History: LOS d 19, tolerating TPN, Peg to drainage(1355 ml), + FMS, NPO, Pain 8 out of 10 Assessment: ?77 year old male with Ruptured AAA s/p Emergent Repair, takeback washout, repair of serosal tears x2, on 01/12, hemorrhagic shock, acute resp failure with pulm edema, TERENCE, SVT s/p Third Look Laparotomy and?washout on 01/14, fourth look, washout, vac change on 01/16 ?remains on vent, continues on CRRT 01/19 ?X lap, wash out, partial fascial closure, wound vac change 01/20 pressors weaned off Remains on diprivan gtt 01/20 rt thoracentesis- breathing better 01/21 limited abdominal x lap and closure 01/22 levo at pm restarted 01/23 neuro consult, ? plans for trach/Peg 01/24 new femoral HD line per nephrology, working good 01/25 + emesis 01/26 started on Zosyn for GNR ( sputum) , TF off 01/27 plans for Peg/Trach 01/30 Select to eval, possible dc CRRT per renal?, ongoing ileus 01/31 HD to start ? Tmax: 37.4 WBC: 7.98 Edema: 3+ UE, LE Lines: Quad lumen, HD cath, all WNL Lytes: reviewed PAB: improved to 23.0 WT: ?85.5 ?kg ( down from 104 kg) GFR: 27.23 Trig : Still high at 432, remains off diprivan and lipid in TPN ? Recommendations: TPN renewed: Decreased NA ? TPN script: 1.5?L /24 hrs providing 1760?calories ( 21?kcals/kg ABW 84?kg) and 90 gms pro ( ~ 1.0 gms/kg ABW 84?kg) per day ? CHO:insulin ratio is ?9.1:1?, with 412 ?gms CHO in TPN , 45 units in TPN bag ? Resume TF as able, once ileus resolves ? Collaborated with Dr Dudley and orders written. Vitals: Temperature Max in 24 hours: Temp (24hrs), Av.2 ?C (99 ?F), Min:36.5 ?C (97.7 ?F), Max:37.6 ?C (99.7 ?F) Current Vital Signs: BP 129/72 Pulse 108 Temp 36.5 ?C (97.7 ?F) (Temporal Artery) Resp (!) 39 Ht 172.7 cm (5' 7.99) Wt 85.5 kg (188 lb 7.9 oz) SpO2 100% BMI 28.67 kg/m? Current Weight: Weight: 85.5 kg (188 lb 7.9 oz) Intake AND Output: Intake/Output Summary (Last 24 hours) at 01/31/18 1128 Last data filed at 01/31/18 0400 Gross per 24 hour Intake 1322 ml Output 798 ml Net 524 ml Laboratory Data: Recent Labs 01/31/18 0415 01/30/18 1100 01/30/18 0555 01/29/18 2357 NA 142 143 142 141 K 3.6 3.7 3.5 3.8 CHLOR 106 107 106 106 CO2 21 29 25 26 CREAT 2.33* 1.40* 1.45* 1.38* BUN 63* 41* 43* 41* GLUC 186* 177* 177* 143* P 4.3 3.3 3.1 3.0 TPROT -- -- 4.8* -- ALB -- 1.0* 1.0* 1.1* MG 2.3 2.3 2.3 2.2 CA 7.4* 7.5* 6.9* 7.0* Recent Labs 01/30/18 [address], [facility] Pager: [phone] Increments: 3 PROGRESS Observed: 01/31/2018 Status: COMPLETED Source: [place] 10:47 AM CLINIC OTHER CAMPUS REPOSITORY [facility] ID: [id number] Author: Paulo TylerRay County Memorial HospitalLisette Lovelace Service: Critical Care Author Type: Nurse Specialist Type: Progress Notes Filed: 01/31/2018 11:17 AM Note Text: MICU - PROGRESS NOTE SERVICE DATE: 01/31/2018 SERVICE TIME: 10:47 AM Admission Date: 01/12/2018 AGE: [id number] year old LOS: 19 days Subjective REASON FOR ICU ADMISSION: Respiratory Failure Objective PROBLEMS: ACTIVE PROBLEM LIST Gallstone Pancreatitis Ruptured Abdominal Aortic Aneurysm (Aaa) (Hcc) Dic (Disseminated Intravascular Coagulation) (Hcc) Hemorrhagic Shock (Hcc) Acute Respiratory Failure (Hcc) Cardiac Arrest (Hcc) Hypokalemia Hypomagnesemia Hypophosphatemia Anoxic Encephalopathy (Hcc) Aaa (Abdominal Aortic Aneurysm, Ruptured) (Hcc) Obesity, Class I, Bmi 30-34.9 Terence (Acute Kidney Injury) (Hcc) Ileus (Hcc) Acute Liver Failure Without Hepatic Coma PAST MEDICAL HISTORY Diagnosis Date - DIC (disseminated intravascular coagulation) (HCC) 01/12/2018 PAST SURGICAL HISTORY Procedure Laterality Date - LAP CHOLECYSTECT/CHOLANGIOGRAPHY 05-28-09 - REPAIR UMBILICAL NATAN,5+Y/O,REDUC 05-28-09 Social History Marital status: Spouse name: Shelly Years of education: 11 Number of children: 4 Occupational History 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 BP 108/53 Pulse 105 Temp (Src) 97.7 (Temporal Artery) Resp 39 Ht 5' 7.992 (1.73m) Wt 188 lb 7.9 oz (85.5kg) SpO2 99% BMI 28.67 kg/(m2). Temp (24hrs), Av.2 ?C (99 ?F), Min:36.5 ?C (97.7 ?F), Max:37.6 ?C (99.7 ?F) NET FLUID BALANCE Intake/Output Summary (Last 24 hours) at 01/31/18 1047 Last data filed at 01/31/18 0400 Gross per 24 hour Intake 1438 ml Output 854 ml Net 584 ml MEDICATIONS Current Facility-Administered Medications: Parenteral Nutrition - Adult INTRAVENOUS ONCE TPN (1800 START) hydrocortisone sodium succinate (PF) 25 mg injection (Solu- CORTEF) 25 mg INTRAVENOUS q 8 H ipratropium-albuterol 3 mL nebulizer solution (DUONEB) 3 mL INHALATION QID metoclopramide HCl 5 mg injection (REGLAN) 5 mg INTRAVENOUS q 12 H 0.9% NaCl 10 mL 10 mL INTRAVENOUS q 12 H 0.9% NaCl 20 mL 20 mL INTRAVENOUS PRN potassium chloride 80-120 mEq oral liquid 80-120 mEq ORAL/FEEDING TUBE PRN potassium chloride iv piggyback 20 mEq in sterile water 100 mL 20 mEq INTRAVENOUS PRN magnesium sulfate in water 2 g in sterile water 50 ml 2 g INTRAVENOUS PRN sodium phosphate 45 mmol in NaCl 0.9% 250 mL 45 mmol INTRAVENOUS PRN calcium gluconate 4 g in NaCl 0.9% 250 mL 4 g INTRAVENOUS PRN fentaNYL 50 mcg/mL 25-50 mcg injection (SUBLIMAZE) 25-50 mcg INTRAVENOUS q 2 H PRN midodrine 10 mg tab(s) (PROAMATINE) 10 mg PEG q 8 H meropenem 500 mg in NaCl 0.9% 100 mL MB+ (MERREM) 500 mg INTRAVENOUS q 8 H budesonide 0.5 mg/2 mL 0.5 mg (PULMICORT) 0.5 mg INHALATION BID pantoprazole 40 mg injection (PROTONIX) 40 mg INTRAVENOUS BID AC (0600/1600) docusate sodium oral liquid 100 mg/10 mL (DIOCTO,COLACE) 100 mg OROGASTRIC BID senna leaf extract 176 mg/5 mL 528 mg 15 mL OROGASTRIC BID carboxymethylcellulose sodium 1-2 Drop (CELLUVISC) 1-2 Drop BOTH EYES PRN polyvinyl alcohol-povidone 1.4-0.6 % 1 Drop (REFRESH) 1 Drop BOTH EYES QID PRN heparin 1,000 unit/mL 4,000 Units injection 4,000 Units INTRAVENOUS 3 Times weekly with dialysis heparin 5,000 Units injection 5,000 Units SUBCUTANEOUS q 12 H NaCl 0.9% 1,000 mL iv bolus 1,000 mL INTRAVENOUS PRN DIALYSIS dextrose 40 % 15 g 15 g ORAL PRN Or glucagon 1 mg injection (GLUCAGEN) 1 mg INTRAMUSCULAR PRN Or dextrose 50% in water 25 mL syringe 12.5 g INTRAVENOUS PRN magnesium sulfate 1 g in D5W 100 mL 1 g INTRAVENOUS PRN magnesium sulfate in water 2 g in sterile water 50 ml 2 g INTRAVENOUS PRN NORepinephrine 16 mg in D5W 250 mL (LEVOPHED) 0-30 mcg/min INTRAVENOUS CONTINUOUS Chlorhexidine Gluconate 0.12 % 15 mL (PERIDEX) 15 mL ORAL q 12 H Lines, Drains, and Airways Line Arterial Line 01/19/18 0840 Arterial Line Right Radial 12 days Central Line Quadruple Lumen 01/19/18 1056 Right Neck 11 days Dialysis / Apheresis Double Lumen 01/24/18 1400 Non-tunneled Right Groin 6 days Drain Drain/Tube 01/19/18 1015 Midline Abdomen 12 days GI Feed/Drain 01/27/18 Assessment Gastrostomy 4 days Drain/Tube 01/29/18 1909 Assessment Fecal Management System Rectum 1 day Airway Airway Tracheostomy 01/27/18 4 days PHYSICAL EXAM PERFORMED: Cardiovascular: Regular rhythm Respiratory: Reduced breath sounds bilat %FIO2 Min: 40 Max: 40 Abdomen: Distended Extremities: Edema- Yes Generalized edema improving Neurologic: Unresponsive Respiratory/Nursing Documentation: O2 Therapy: Ventilator (01/31/18914) Invasive Ventilator Mode: Pressure Regulated Volume Control (01/31/18904) Set Ventilator Respiratory Rate (BPM): 18 (01/31/18904) Total Respiratory Rate (BPM): 29 (01/31/18904) Tidal Volume Set (mL): 500 (01/31/18904) Exhaled Tidal Volume (mL): 774 (01/31/18904) Minute Volume (L): 11.9 (01/31/18904) Peak Inspiratory Pressure (cm H2O): 28 (01/31/18904) PEEP/CPAP (cm H2O): 5 (01/31/18904) HEMODYNAMIC DATA: Reviewed NUTRITION: Enteral Feeds: TPN NPO DATA: Diagnostic tests reviewed for today's visit, films/specimens were personally reviewed by me: Most recent labs and imaging results. LABS: Recent Labs 01/31/18 0415 01/30/18 1100 01/30/18 0555 WBC 7.98 -- 7.65 RBC 2.54* -- 2.57* HB 7.2* -- 7.3* HCT 22.4* -- 22.4* MCV 88.2 -- 87.2 PLT 208 -- 188 GLUC 186* 177* 177* BUN 63* 41* 43* CREAT 2.33* 1.40* 1.45* NA 142 143 142 K 3.6 3.7 3.5 CHLOR 106 107 106 CO2 21 29 25 TPROT -- -- 4.8* ALB -- 1.0* 1.0* CA 7.4* 7.5* 6.9* ALKPHOS -- -- 178* TBILI -- -- 6.0* AST -- -- 84* ALT -- -- 60 MG 2.3 2.3 2.3 ABG: Recent Labs 01/28/18 1305 PH 7.459* PO2 153.3* PCO2 35.3* Assessment/Plan IMPRESSION: Critical Care Documentation: The patient has the following organ/system impairment(s): Respiratory failure (with Hypoxemia) ?1.Acute hypoxic respiratory failure/ARDS/Bilat pleuaral effusions-remains intubated on 40% FIO2 2. Ruptured AAA ?Sp repair-Wound closed vac in place draining sm amt serosanguinous drainage 3.SP cardiac arrest 4.Shock-Levophed support at 10mcg-blood pressure is labile dropping into 70s on dialysis 5. Pt is nonresponsive-even to noxious stimuli-Encephalopathy 6.Thrombocytopenia improving-platelet 208,000 7.Nutritional support-TPN 8.Sinus tachycardia-SVT resolved-frequent PACs this AM 9.TERENCE on CKD-on CRRT 10. Fentanyl drip is off 11. Ileus/gastroparesis-Reglan 12. Acute blood loss anemia-Hgb is 7.2 GM 13.Hyperlipidemia improving 14.Trach /PEG 15. QTC is 474 msec 16.When placed to low suction-PEG drained Dk sangu 17.Failed t piece trial-RR went into 40s-then dropped to 21/min-some Seth Stoke breathing observed 18. Tube feedings off 2/2 emesis and high residuals This patient has a high probability of sudden, clinically significant deterioration, which requires the highest level of physician preparedness to intervene urgently. I managed/supervised life or organ supporting interventions that required frequent physician assessment. I devoted my full attention to the direct care of this patient for the amount of time indicated below. Time I spent with family or surrogate(s) is included only if the patient was incapable of providing the necessary information or participating in medical decision making. Time devoted to teaching is not included. Discussed with staff/patient/family Time spent providing critical care services: 40 minutes excluding procedures. SIGNATURE: Paulo Lovelace APRN.MAINTENANCE TEAM MEMBER PATIENT NAME: Naveen Akins DATE: January 31, 2018 TIME: 10:47 AM BLOOD GAS ARTERIAL Collected: 01/31/2018 Status: F Source: [facility] 10:35 AM HEALTH SYSTEM REPOSITORY TYPE CODE TESTS RESULT OUT OF REFERENCE UNITS RANGE LAB FIO2(LOINC % ) FIO2 40 LAB TEMPA(LOIN C) Temperature 37.2 LAB PH(LOINC) 7.350-7.450 pH Arterial High 7.523 LAB PCO2(LOINC 36.0-46.0 mm Hg ) Low PCO2 Arterial 29.6 LAB PO2(LOINC) 85.0-96.0 mm Hg PO2 High Arterial 156.7 LAB HCO3A(LOIN 22.0-26.0 mEq/L C) HCO3- 23.7 LAB O2%A(LOINC 95.0-98.0 % ) O2% Sat High Arterial 99.0 LAB BASEX(LOIN -2.5 to 2.5 mEq/L C) Base Excess 1.1 Performed By: #### ABG #### [facility] [address] [address] PROGRESS Observed: 01/31/2018 Status: COMPLETED Source: [place] 6:13 AM CLINIC OTHER CAMPUS REPOSITORY [facility] ID: [id number] Author: Dionicio Stevens Service: Vascular Surgery Author Type: Resident Type: Progress Notes Filed: 01/31/2018 4:19 PM Note Text: Attestation signed by Venkat Paniagua at 01/31/2018 4:35 PM We're gradually changing the patient's ongoing support to support that is more intermittent as opposed to continuous. He is getting his first intermittent dialysis today. We are getting a PICC line placed today so that we can remove his central line. We are going to likely later in the week place a tunneled dialysis catheter for him. His neurologic status has not changed significantly. Overall he seems to be reasonably stable at this point. Vascular Surgery Progress Note SERVICE DATE: 01/31/2018 Vascular AND Thoracic Surgery Service Pager: For questions or concerns Mon-Fri 6a-5p please page [phone]. After 5pm and on Weekends and Holidays, please page [phone] if in ICU or [phone] if on RNF. Subjective SUBJECTIVE: NAEON Diet: Parenteral Nutrition - Adult Objective OBJECTIVE: Vitals: Temp (24hrs), Av.2 ?C (99 ?F), Min:36.5 ?C (97.7 ?F), Max:37.6 ?C (99.7 ?F) BP 108/53 Pulse 99 Temp 37.5 ?C (99.5 ?F) (Axillary) Resp (!) 37 Ht 172.7 cm (5' 7.99) Wt 86.4 kg (190 lb 7.6 oz) SpO2 98% BMI 28.97 kg/m? O2 Therapy: Ventilator IANDO: Date 01/30/18 07 - 01/31/18 0659 01/31/18 07 - 02/01/18 0659 Shift 2689-8730 0875-5670 5814-2500 24 Hour Total 1739-2938 8037-4991 5636-1173 24 Hour Total I N T A K E IV 336 185 521 NS 0.9% 42 135 177 Calcium IVPB 282 282 NORepinephrine Volume 12 12 Meropenem (Merrem) 0 50 50 TPN/PPN 498 547 567 3146 TPN 498 921 019 7015 Shift Total 834 921 924 5749 O U T P U T Urine 0 40 40 Void (ml) 0 0 Urine Incontinence/Not Saved 1 x 1 x 1 x 3 x Tube Output ([REMOVED] Condom Catheter 01/30/18 1300 01/31/18 0223) 40 40 Drains 0 0 25 25 Negative Pressure: Output (mL) (Negative Pressure Wound Therapy 01/12/18 0749 Abdomen) 0 0 25 25 Tubes 350 100 350 800 Drain/Tube Output (Drain/Tube 01/19/18 1015 Midline Abdomen) 0 0 0 Drain/Tube Output (Drain/Tube 01/29/18 1909 Assessment Fecal Management System Rectum) 0 0 0 0 Output (GI Feed/Drain 01/27/18 Assessment Gastrostomy) 350 100 350 800 Dialysis 510 510 Dialysis Output (Ultrafiltration) 510 510 Shift Total 860 688 362 1345 Weight (kg) 86.4 86.4 86.4 86.4 86.4 86.4 86.4 86.4 MEDICATIONS Current Facility-Administered Medications: Parenteral Nutrition - Adult INTRAVENOUS ONCE TPN (1800 START) hydrocortisone sodium succinate (PF) 25 mg injection (Solu- CORTEF) 25 mg INTRAVENOUS q 8 H ipratropium-albuterol 3 mL nebulizer solution (DUONEB) 3 mL INHALATION QID metoclopramide HCl 5 mg injection (REGLAN) 5 mg INTRAVENOUS q 12 H 0.9% NaCl 10 mL 10 mL INTRAVENOUS q 12 H 0.9% NaCl 20 mL 20 mL INTRAVENOUS PRN potassium chloride 80-120 mEq oral liquid 80-120 mEq ORAL/FEEDING TUBE PRN potassium chloride iv piggyback 20 mEq in sterile water 100 mL 20 mEq INTRAVENOUS PRN magnesium sulfate in water 2 g in sterile water 50 ml 2 g INTRAVENOUS PRN sodium phosphate 45 mmol in NaCl 0.9% 250 mL 45 mmol INTRAVENOUS PRN calcium gluconate 4 g in NaCl 0.9% 250 mL 4 g INTRAVENOUS PRN fentaNYL 50 mcg/mL 25-50 mcg injection (SUBLIMAZE) 25-50 mcg INTRAVENOUS q 2 H PRN midodrine 10 mg tab(s) (PROAMATINE) 10 mg PEG q 8 H meropenem 500 mg in NaCl 0.9% 100 mL MB+ (MERREM) 500 mg INTRAVENOUS q 8 H budesonide 0.5 mg/2 mL 0.5 mg (PULMICORT) 0.5 mg INHALATION BID pantoprazole 40 mg injection (PROTONIX) 40 mg INTRAVENOUS BID AC (0600/1600) docusate sodium oral liquid 100 mg/10 mL (DIOCTO,COLACE) 100 mg OROGASTRIC BID senna leaf extract 176 mg/5 mL 528 mg 15 mL OROGASTRIC BID carboxymethylcellulose sodium 1-2 Drop (CELLUVISC) 1-2 Drop BOTH EYES PRN polyvinyl alcohol-povidone 1.4-0.6 % 1 Drop (REFRESH) 1 Drop BOTH EYES QID PRN heparin 1,000 unit/mL 4,000 Units injection 4,000 Units INTRAVENOUS 3 Times weekly with dialysis heparin 5,000 Units injection 5,000 Units SUBCUTANEOUS q 12 H NaCl 0.9% 1,000 mL iv bolus 1,000 mL INTRAVENOUS PRN DIALYSIS dextrose 40 % 15 g 15 g ORAL PRN Or glucagon 1 mg injection (GLUCAGEN) 1 mg INTRAMUSCULAR PRN Or dextrose 50% in water 25 mL syringe 12.5 g INTRAVENOUS PRN magnesium sulfate 1 g in D5W 100 mL 1 g INTRAVENOUS PRN magnesium sulfate in water 2 g in sterile water 50 ml 2 g INTRAVENOUS PRN NORepinephrine 16 mg in D5W 250 mL (LEVOPHED) 0-30 mcg/min INTRAVENOUS CONTINUOUS Chlorhexidine Gluconate 0.12 % 15 mL (PERIDEX) 15 mL ORAL q 12 H Labs: Recent Labs 01/31/18 0415 01/30/18 1100 01/30/18 0555 01/28/18 1305 NA 142 143 142 < > -- K 3.6 3.7 3.5 < > -- CHLOR 106 107 106 < > -- CO2 21 29 25 < > -- BUN 63* 41* 43* < > -- CREAT 2.33* 1.40* 1.45* < > -- GLUC 186* 177* 177* < > -- ANION 19* -- -- -- -- CA 7.4* 7.5* 6.9* < > -- MG 2.3 2.3 2.3 < > -- P 4.3 3.3 3.1 < > -- ALB -- 1.0* 1.0* < > -- AST -- -- 84* -- -- ALT -- -- 60 -- -- ALKPHOS -- -- 178* -- -- TBILI -- -- 6.0* -- -- WBC 7.98 -- 7.65 < > -- HB 7.2* -- 7.3* < > -- HCT 22.4* -- 22.4* < > -- PLT 208 -- 188 < > -- PH -- -- -- -- 7.459* PCO2 -- -- -- -- 35.3* PO2 -- -- -- -- 153.3* BE -- -- -- -- 0.8 < > = values in this interval not displayed. Exam: GENERAL: No distress NEURO: Opens eyes, no tracking, not following HEENT: normocephalic, atraumatic LUNGS: Unlabored breathing O2 Therapy: Ventilator CARDIAC: Afib ABDOMEN: Soft, non-tender, mild D, no PS, Vac/retentions intact EXTREMITIES: MAK, No deformities, Palpable distal pulses SKIN: Skin color, texture, turgor normal, No rashes or lesions ASSESSMENT AND PLAN: Active Hospital Problems Diagnosis Date Noted - Ruptured abdominal aortic aneurysm (AAA) (HCC) 01/12/2018 - TERENCE (acute kidney injury) ([facility]) 01/30/2018 - Ileus (HCC) 01/30/2018 - Acute liver failure without hepatic coma 01/30/2018 - Obesity, Class I, BMI 30-34.9 01/16/2018 - Anoxic encephalopathy (HCC) 01/13/2018 - DIC (disseminated intravascular coagulation) ([facility]) 01/12/2018 - Hemorrhagic shock ([facility]) 01/12/2018 - Acute respiratory failure ([facility]) 01/12/2018 - Cardiac arrest ([facility]) 01/12/2018 - AAA (abdominal aortic aneurysm, ruptured) ([facility]) 01/12/2018 Overview Note: Added automatically from request for surgery [id number] 77 year old male with Ruptured AAA s/p Emergent Repair, takeback washout, repair of serosal tears x2, on 01/12, hemorrhagic shock, acute resp failure with pulm edema, TERENCE, SVT, s/p Third Look Laparotomy and?washout on 01/14, fourth look, washout, vac change on 01/16, Partial fascial closure on 01/19, Fascial closure/Retention Sutures on 01/21, Trach and PEG on 01/27 ? - Trach Vent mgmt per MICU - NPO/TPN - Acute blood loss and dilutional anemia and thrombocytopenia - monitor, stable - TERENCE -->?CVVHD stopped yesterday per?Nephro, IHD - Meropenum for E-bacter HCAP - Cont WV --> wound care following for VAC changes - Solucortef 50mg q8h per MICU - Leukocytosis - resolved, cont Abx for HCAP - Levo off - Sedation off - Reglan, PEG to drain - Daily CXR stable - PICC today, dc Right IJ - Code Status: family wants to maintain Full Code status ?? Assessment and plan discussed with attending: Dr. Paniagua SIGNATURE: Dionicio Stevens MD PATIENT NAME: Naveen Akins DATE: January 31, 2018 TIME: 6:14 AM Vascular AND Thoracic Surgery Service Pager: For questions or concerns Mon-Fri 6a-5p please page [phone]. After 5pm and on Weekends and Holidays, please page [phone] if in ICU or [phone] if on RNF. CHEST 1 VIEW Observed: 01/31/2018 Status: F Source: [facility] 5:56 AM HEALTH SYSTEM REPOSITORY Performed at [facility] APPROVED BY: Skip Hickey MD EXAM TITLE: CHEST 1 VIEW DATE: 01/31/2018 05:26 COMPARISON: Chest x-ray 01/30/2018 CLINICAL INDICATION/HISTORY: Shortness of breath TECHNIQUE: An AP upright view of the chest is presented. FINDINGS: There is a tracheostomy tube in stable position. Right IJ central venous catheter with its tip profiling the superior vena cava right atrial junction. The cardiomediastinal silhouette is unremarkable. No pneumothorax. The costophrenic angles are clear bilaterally. No areas of consolidation. The pulmonary vessels are within normal limits. The bony structures are intact. There is a PEG tube in the left upper quadrant. IMPRESSION: Stable appearance of the chest. BASIC PANEL Collected: 01/31/2018 Status: F Source: [facility] 4:15 AM HEALTH SYSTEM REPOSITORY TYPE CODE TESTS RESULT OUT OF REFERENCE UNITS RANGE LAB NA(LOINC) 136-145 mEq/L Sodium Blood 142 LAB K(LOINC) 3.5-5.1 mEq/L Potassium Blood 3.6 LAB CL(LOINC) 98-107 mEq/L Chloride Blood 106 LAB CO2(LOINC) 21-32 mEq/L CO2 Blood 21 LAB CREA(LOINC 0.67-1.17 mg/dL ) High Creatinine Blood 2.33 LAB CA(LOINC) 8.5-10.1 mg/dL Low Calcium Blood 7.4 LAB ANGAP(LOIN 8-16 C) Anion High Gap 19 LAB BUN(LOINC) 7-18 mg/dL BUN High Blood 63 LAB GLU(LOINC) 70-99 mg/dL Glucose High Blood 186 Performed By: #### P8 #### [facility] [address] [address] IONIZED CALCIUM Collected: 01/31/2018 Status: F Source: [facility] 4:15 AM HEALTH SYSTEM REPOSITORY TYPE CODE TESTS RESULT OUT OF REFERENCE UNITS RANGE LAB CAION(LOINC 4.43-4.93 mg/dL ) Low Ionized 4.16 Calcium LAB PHCAI(LOINC 7.320-7.420 ) pH High 7.538 LAB CAPH(LOINC) 4.36-4.73 mg/dL Ionized 4.46 Ca,PH7.4 Performed By: #### IONCA #### [facility] [address] [id number] HEMOGRAM/DIFF Collected: 01/31/2018 Status: F Source: [facility] 4:15 AM HEALTH SYSTEM REPOSITORY TYPE CODE TESTS RESULT OUT OF REFERENCE UNITS RANGE LAB WBC(LOINC) 4.23-9.07 thou/cmm WBC 7.98 LAB RBC(LOINC) 4.63-6.08 mil/cmm Low RBC 2.54 LAB HGB(LOINC) 13.7-17.5 g/dL Low Hgb 7.2 LAB HCT(LOINC) 40.1-51.0 % Low Hct 22.4 LAB MCV(LOINC) 83.2-95.6 fl MCV 88.2 LAB MCH(LOINC) 25.7-32.2 pg MCH 28.3 LAB MCHC(LOINC 32.3-36.5 % ) Low MCHC 32.1 LAB RDW(LOINC) 11.6-14.4 % RDW High 20.3 LAB RDWSD(LOIN 36.1-45.8 fl C) RDW SD High 63.7 LAB PLT(LOINC) 141-365 thou/cmm Platelet 208 LAB MPV(LOINC) 8.7-12.0 fl MPV High 12.5 LAB SEG(LOINC) % Seg Neutrophil 75.5 LAB IGRE(LOINC % ) Immature Grans 9.10 LAB LYMPH(LOIN % C) Lymphocyte 8.5 LAB MNO(LOINC) % Monocyte 6.8 LAB EOSIN(LOIN % C) Eosinophil 0.0 LAB BASO(LOINC % ) Basophil 0.1 LAB SEGN(LOINC 1.78-5.38 thou/cmm ) Abs. High Neut (ANC) 6.02 LAB IGAB(LOINC 0.00-0.05 thou/cmm ) Abs High Immature Grans 0.73 LAB LYMN(LOINC 0.84-2.85 thou/cmm ) Low Abs. Lymph 0.68 LAB MONON(LOIN 0.30-0.82 thou/cmm C) Abs. Rincon 0.54 LAB EOSN(LOINC 0.04-0.54 thou/cmm ) Low Abs. Eosin 0.00 LAB BASON(LOIN 0.01-0.08 thou/cmm C) Abs. Baso 0.01 Result Comment: Smear scanned; tech agrees with automated differential Performed By: #### [id number] #### [place] [address] MAGNESIUM BLOOD Collected: 01/31/2018 Status: F Source: [facility] 4:15 AM HEALTH SYSTEM REPOSITORY TYPE CODE TESTS RESULT OUT OF REFERENCE UNITS RANGE LAB MAG(LOINC) 1.6-2.6 mg/dL Magnesium Blood 2.3 Performed By: #### MAG #### [place] [address] PHOSPHORUS BLOOD Collected: 01/31/2018 Status: F Source: [facility] 4:15 AM HEALTH SYSTEM REPOSITORY TYPE CODE TESTS RESULT OUT OF REFERENCE UNITS RANGE LAB PHOS(LOINC 2.5-4.9 mg/dL ) Phosphorus Blood 4.3 Performed By: #### PHOS #### [place] [address] OPERATIVE NO Observed: 01/31/2018 Status: COMPLETED Source: [place] 12:00 AM [facility] OTHER CAMPUS REPOSITORY O ID: [id number] Author: Simi Cox Service: Vascular Surgery Author Type: Physician Type: Operative Report Filed: 02/01/2018 8:42 AM Note Text: [facility] - Operative Report SURGEON: Simi Cox MD, FACS PATIENT NAME: NAVEEN AKINS CSN: [id number] DATE OF SURGERY: 01/27/2018 DATE OF : 1940 SEX/AGE: M/ PATIENT TYPE: I HOSP SVC: LICO LOCATION: [id number] DATE OF SURGERY: 01/27/2018 SURGEON: Simi Cox MD, FACS PREOPERATIVE DIAGNOSIS: Respiratory failure, status post abdominal aortic aneurysm repair. POSTOPERATIVE DIAGNOSIS: Respiratory failure, status post abdominal aortic aneurysm repair. TITLE OF THE OPERATION: Insertion of tracheostomy, 8-Chinese. VISUAL ARTS TEACHER: Ashu Menezes M.D. and Hailey Dixon SA HISTORY: This is a 77-year-old man who underwent repair of ruptured abdominal aortic aneurysm. This is a patient, who was transferred to [facility] and was in the process of having CPR when he arrived from the helicopter. The vascular staff was able to get him to the operating room, and he survived the surgery, although mental status is not yet clear. He has been unable to be weaned from the ventilator and the family is aware. We suggested tracheostomy at this time and the family agreed. DETAILS OF THE PROCEDURE: After Huddle in the intensive care area with plan for potential PEG tube, we took the patient to the operating room, where the neck was sterilely prepped and draped with maximal barrier precaution. Antibiotics were being delivered treatment ballard, but also prophylactically at that time. Once the neck was extended, and prep and drape complete, we had skin incision just above the sternal notch. A lot of inflammation and edema were noted in this region. As we got down through the subcutaneous tissues to get to the midline, we the strap muscles to find the thyroid densely adherent to the trachea. Blood loss was probably at least 15 mL in just bovieing through the trachea. We then able open the trachea, and with moderate difficulty due to the depth, we were able to get the anesthesia personnel to withdraw the endotracheal tube. Initially, the 8- Chinese Shiley did not easily go, so we transitioned over a stylet to the percutaneous type trach with a dilator and used the 8-Chinese dilator to gain access of the new trach into the tracheostomy site. This was then secured to the skin with suture as well as suture ties. The tracheostomy balloon functioned well and General Surgery then proceeded with attempts at PEG tube placement, which were successful. Overall, he tolerated the procedure well, had no significant hypotension or hypoxia during the tracheostomy. Simi Cox MD, FACS Cardiothoracic Surgery RGN:modl /[id number] ALLIED HEALTH Observed: 01/30/2018 Status: COMPLETED Source: [place] 8:37 PM CLINIC OTHER CAMPUS REPOSITORY HNO ID: [id number] Author: Jamila () Chaplain Allison Service: Spiritual Care Author Type: Envelope Stamping Machine Operator Type: Allied Health Filed: 01/30/2018 11:14 PM Note Text: SPIRITUALCARE Spiritual Care Visit- Brief Note Name: Naveen Akins Date: January 30, 2018 Notes: Met fam in 3rd wtg and they spoke of pts illness. Later I met them in pts room and we prayed. Fam looking for a miracle. I made S/C available to them again.They thanked me for coming. Envelope Stamping Machine Operator Signature: Chaplain Diaz To contact the Spiritual Care Department: Please call [phone] or Page the On-Call Envelope Stamping Machine Operator at pager [phone] Thank you for the opportunity to be of service. This is an electronically created document. IF PRINTED, PLEASE DO NOT REMOVE FROM THE CHART OR MODIFY PRINTED COPY. NURSING PROG Observed: 01/30/2018 Status: COMPLETED Source: [place] 3:17 PM [facility] REPOSITORY HNO ID: [id number] Author: Tita (Rn) MAGALY Marquis Service: Nursing Author Type: Registered Nurse Type: Nursing Progress Note Filed: 01/30/2018 3:18 PM Note Text: Blood returned and CRRT ended per Dr Lorenzo order. Plan to HD tomorrow PROGRESS Observed: 01/30/2018 Status: COMPLETED Source: [place] 2:18 PM [facility] REPOSITORY HNO ID: [id number] Author: Shen Lorenzo Service: Nephrology Author Type: Physician Type: Progress Notes Filed: 01/30/2018 2:20 PM Note Text: Nephrology Progress Note Following for TERENCE. Pt is trached. Remains on ventilator. Cannot do ROS. Current Inpatient Medications: Current Facility-Administered Medications Ordered in Epic: calcium gluconate 4 g in NaCl 0.9% 250 mL 4 g INTRAVENOUS ONCE Dionicio (Res) Stevens Parenteral Nutrition - Adult INTRAVENOUS ONCE TPN (1800 START) H Edwin Dudley hydrocortisone sodium succinate (PF) 25 mg injection (Solu- CORTEF) 25 mg INTRAVENOUS q 8 H Lora Soliz 25 mg at 01/30/18 1319 ipratropium-albuterol 3 mL nebulizer solution (DUONEB) 3 mL INHALATION QID Lora Soliz 3 mL at 01/30/18 1229 metoclopramide HCl 5 mg injection (REGLAN) 5 mg INTRAVENOUS q 12 H Lora Soliz potassium chloride 80-120 mEq oral liquid 80-120 mEq ORAL/FEEDING TUBE PRN Maggi (Res) Verghese potassium chloride iv piggyback 20 mEq in sterile water 100 mL 20 mEq INTRAVENOUS PRN Maggi (Res) [place] magnesium sulfate in water 2 g in sterile water 50 ml 2 g INTRAVENOUS PRN Maggi (Res) [place] sodium phosphate 45 mmol in NaCl 0.9% 250 mL 45 mmol INTRAVENOUS PRN Maggi (Res) [place] Last Rate: 41.67 mL/hr at 01/29/18 0342 45 mmol at 01/29/18 0342 calcium gluconate 4 g in NaCl 0.9% 250 mL 4 g INTRAVENOUS PRN Maggi (Res) [place] Last Rate: 62.5 mL/hr at 01/30/18 0805 4 g at 01/30/18 0805 fentaNYL 50 mcg/mL 25-50 mcg injection (SUBLIMAZE) 25-50 mcg INTRAVENOUS q 2 H PRN Venkat Paniagua 50 mcg at 01/29/18 0938 Parenteral Nutrition - Adult INTRAVENOUS ONCE TPN (1800 START) H Edwin Dudley Last Rate: 62.5 mL/hr at 01/30/18 1200 midodrine 10 mg tab(s) (PROAMATINE) 10 mg PEG q 8 H Dorcas Palafox 10 mg at 01/30/18 1319 prismaSOL BGK 4 K / 2.5 mEq Ca/Liter 5,000 mL 5,000 mL HEMODIALYSIS continuous (no dispense) Venkat Paniagua 5,000 mL at 01/30/18 0850 prismaSOL BGK 4 K / 2.5 mEq Ca/Liter 5,000 mL 5,000 mL HEMODIALYSIS continuous (no dispense) Venkat Paniagua 5,000 mL at 01/30/18 0850 prismaSOL BGK 4 K / 2.5 mEq Ca/Liter 5,000 mL 5,000 mL HEMODIALYSIS continuous (no dispense) Venkat Paniagua 5,000 mL at 01/30/18 0850 meropenem 500 mg in NaCl 0.9% 100 mL MB+ (MERREM) 500 mg INTRAVENOUS q 8 H Dorcas Palafox Last Rate: 200 mL/hr at 01/30/18 1319 500 mg at 01/30/18 1319 budesonide 0.5 mg/2 mL 0.5 mg (PULMICORT) 0.5 mg INHALATION BID Dorcas Mike Decoy 0.5 mg at 01/30/18 0829 pantoprazole 40 mg injection (PROTONIX) 40 mg INTRAVENOUS BID AC (0600/1600) Jocelynn (Res) Robson 40 mg at 01/30/18 0513 docusate sodium oral liquid 100 mg/10 mL (DIOCTO,COLACE) 100 mg OROGASTRIC BID Dorcas Mike Decoy 100 mg at 01/30/18 0812 senna leaf extract 176 mg/5 mL 528 mg 15 mL OROGASTRIC BID Dionicio (Res) Stevens 528 mg at 01/30/18 0812 carboxymethylcellulose sodium 1-2 Drop (CELLUVISC) 1-2 Drop BOTH EYES PRN Venkat Paniagua 2 Drop at 01/26/18 1625 polyvinyl alcohol-povidone 1.4-0.6 % 1 Drop (REFRESH) 1 Drop BOTH EYES QID PRN Paulo (Meter Repair Shop Supervisor) Hudock 1 Drop at 01/26/18 1724 heparin 1,000 unit/mL 4,000 Units injection 4,000 Units INTRAVENOUS 3 Times weekly with dialysis Troy Godoy 2,800 Units at 01/27/18 0834 heparin 5,000 Units injection 5,000 Units SUBCUTANEOUS q 12 H Mervin (Res) Wally 5,000 Units at 01/30/18 0812 NaCl 0.9% 1,000 mL iv bolus 1,000 mL INTRAVENOUS PRN DIALYSIS Shen Lorenzo 1,000 mL at 01/26/18 1116 dextrose 40 % 15 g 15 g ORAL PRN Jack Regula Or glucagon 1 mg injection (GLUCAGEN) 1 mg INTRAMUSCULAR PRN Jack Regula Or dextrose 50% in water 25 mL syringe 12.5 g INTRAVENOUS PRN Jack Regula magnesium sulfate 1 g in D5W 100 mL 1 g INTRAVENOUS PRN Emilie (Res) Cardella Last Rate: 100 mL/hr at 01/15/18 0016 1 g at 01/15/18 0016 magnesium sulfate in water 2 g in sterile water 50 ml 2 g INTRAVENOUS PRN Emilie (Res) Cardella Last Rate: 25 mL/hr at 01/13/18 1004 2 g at 01/13/18 1004 NORepinephrine 16 mg in D5W 250 mL (LEVOPHED) 0-30 mcg/min INTRAVENOUS CONTINUOUS Dionicio (Res) Stevens Stopped at 01/30/18 0920 Chlorhexidine Gluconate 0.12 % 15 mL (PERIDEX) 15 mL ORAL q 12 H Elder Yu) Kalee 15 mL at 01/30/18 0812 No current Epic-ordered outpatient prescriptions on file. Vitals: BP 108/53 Pulse 99 Temp 37.3 ?C (99.1 ?F) Resp (!) 38 Ht 172.7 cm (5' 7.99) Wt 86.4 kg (190 lb 7.6 oz) SpO2 100% BMI 28.97 kg/m? BLOOD PRESSURE RANGE: Systolic (24hrs), Av , Min:108 , Max:108 ; Diastolic (24hrs), Av, Min:53, Max:53 24HR INTAKE/OUTPUT: Intake/Output Summary (Last 24 hours) at 01/30/18 1418 Last data filed at 01/30/18 1400 Gross per 24 hour Intake 2034 ml Output 2083 ml Net -49 ml Physical exam: Constitutional: NAD? Skin: no rash, turgor wnl Heent: Trached Neck: no bruits or jvd noted Cardiovascular: ?S1, S2 normal without m/r/g Respiratory: Coarse breath sound bilaterally Abdomen: ?+bs, soft, nt, nd Ext: trace?lower extremity edema Data: Labs: Recent Labs 01/30/18 0555 01/29/18 1740 01/29/18 1315 01/29/18 0645 WBC 7.65 -- 10.03* 8.05 HB 7.3* 7.9* 8.0* 7.9* HCT 22.4* 24.6* 25.2* 24.6* MCV 87.2 -- 88.4 88.5 PLT 188 -- 168 150 Recent Labs 01/30/18 1100 01/30/18 0555 01/29/18 2357 NA 143 142 141 K 3.7 3.5 3.8 CO2 29 25 26 MG 2.3 2.3 2.2 BUN 41* 43* 41* CREAT 1.40* 1.45* 1.38* CA 7.5* 6.9* 7.0* Assessment and Plan 1. Acute kidney injury on chronic kidney disease stage 3. Baseline SCr is 1.36 mg/dL on 11/14/17. CKD is likely due to nephrosclerosis related to PAD. TERENCE is secondary to ischemic ATN from shock. Off NE gtt. Pt may be making some urine (difficult to quantify since he is incontinent). Nevertheless, he is still dialysis dependent. Will stop CVVHDF since he is now off pressor. Plan to transition the pt to intermittent HD tomorrow. ? 2. Shock. Stable. Initially due to hemorrhagic shock-massive blood loss from ruptured AAA +/- adrenal insufficiency. Currently off NE gtt. On hydrocortisone. ? 5. Ruptured AAA. s/p repair 01/12/18. Management as per vascular surgery. ? 6. Acute hypoxic respiratory failure. Ventilator dependent. Vent management as per pulmonary/CCM. ? 7. Encephalopathy. Neuro evaluation in progress. Eventual MRI. ? d/w Dr. Paniagua Please do not hesitate to contact me at [phone] if there is any question or concern. Rosanna Talbert MD (Shen Lorenzo) CASE MANAGEM Observed: 01/30/2018 Status: COMPLETED Source: [place] 12:59 PM CLINIC OTHER CAMPUS REPOSITORY HNO ID: [id number] Author: Lorrie (Magaly) MAGALY Bo Service: (none) Author Type: Registered Nurse Type: Care Mgt Progress Note Filed: 01/30/2018 1:03 PM Note Text: CARE MANAGEMENT PROGRESS NOTE SERVICE DATE: 01/30/2018 SERVICE TIME: 1:00 PM LOS: 18 days Needs Prior to Discharge: To Be Determined;Bed Availability;Facility or Agency Choices Remains in cvic, Iv levo off, cont a line. +CRRT, trach and peg 01/27 Cont prvc vent. Spoke with and son Gilbert in waiting area. Emotional support given. They have ltach choice list and have not yet visited or made dec as to which ltach they want him to go to. Re enc'd to discuss and possibly visit. Will follow and await choices. SIGNATURE: Lorrie Bo RN PATIENT NAME: Naveen Akins DATE: January 30, 2018 TIME: 1:00 PM PAGER/CONTACT #: [phone] EKG (AK,AV,EU,FV,HL,CYNTHIA,MM,SP) Observed: Status: F Source: [place] 01/30/2018 12:42 CLINIC OTHER PM CAMPUS REPOSITORY NAME : NAVEEN AKINS PID : [id number] : 1940 Gender : Male Race : ORD : [id number] Procedure Date : Jan 30 2018 12:42 Edit Date : Jan 30 2018 14:45 Diagnosis:BASELINE ARTIFACT NORMAL SINUS RHYTHM NONSPECIFIC ST AND T WAVE ABNORMALITY ABNORMAL ECG WHEN COMPARED WITH ECG OF 28-JAN-2018 04:32, T WAVE INVERSION NOW EVIDENT IN ANTERIOR LEADS Confirmed by MD Pardo Vinayak A. ([id number]) on 01/30/2018 2:45:16 PM Ventricular Rate : 99 BPM Atrial Rate : 99 BPM P-R Interval : 124 ms QRS Duration : 70 ms Q-T Interval : 370 ms QTC Calculation(Bezet) : 474 ms P [place] : 26 degrees R [place] : 9 degrees T [place] : 19 degrees Test Reason : Arrhythmia Location : 3 : [place] [id number] Overread By : MD Pardo Vinayak A. Editted By : MD Pardo Vinayak A. Referred By : LORA SOLIZ Acquired by : Shira GARZA NUTRITION Observed: 01/30/2018 Status: COMPLETED Source: [place] 12:02 PM [facility] OTHER CAMPUS REPOSITORY HNO ID: [id number] Author: Viry Mosher RD Service: NST-Nutrition Support Team Author Type: Registered Dietitian Type: Nutrition Filed: 01/30/2018 12:09 PM Note Text: Attestation signed by Perla Dudley at 02/06/2018 8:40 AM Discussed with the RD and agree with RD's findings and plan as documented in the RD's note. Cont TPN. Perla Dudley MD NUTRITION SUPPORT TEAM TOPIC: NUTRITION SUPPORT TEAM PROGRESS NOTE PATIENT NAME: Naveen Akins DATE OF : 1940 DATE: 01/30/2018 Nutritional Status: NO MALNUTRITION IDENTIFIED per RD 01/16/18 ? ? NUTRITION CARE PLAN: ? Problem, Etiology and Signs/Symptoms: Altered GI function related to potential ileus?as evidenced by lack of bowel sounds, distended abdomen, and hypotension. ? NST consult 01/16/18 for TPN support ? ? Interval History: LOS d 18, tolerating TPN, Peg to drainage, looks more comfortable with trach, still having intermittent hiccups like action, no BM, no pain Assessment: 77 year old male with Ruptured AAA s/p Emergent Repair, takeback washout, repair of serosal tears x2, on 01/12, hemorrhagic shock, acute resp failure with pulm edema, TERENCE, SVT s/p Third Look Laparotomy and?washout on 01/14, fourth look, washout, vac change on 01/16 ?remains on vent, continues on CRRT 01/19 ?X lap, wash out, partial fascial closure, wound vac change 01/20 pressors weaned off Remains on diprivan gtt 01/20 rt thoracentesis- breathing better 01/21 limited abdominal x lap and closure 01/22 levo at pm restarted 01/23 neuro consult, ? plans for trach/Peg 01/24 new femoral HD line per nephrology, working good 01/25 + emesis 01/26 started on Zosyn for GNR ( sputum) , TF off 01/27 plans for Peg/Trach 01/30 Select to eval, possible dc CRRT per renal?, ongoing ileus ? Tmax: 37.3 WBC: 7.65 Edema: 3+ UE, LE Lines: Art Line, Quad lumen, HD cath, all WNL Lytes: reviewed PAB: last level 17.0, todays is pending WT: ?86.4 ?kg ( down from 104 kg) GFR: 47.07 Trig : Still high at 432, remains off diprivan and lipid in TPN ? ? Recommendations: TPN renewed: Decreased NA, added 10 meq of KCL ? TPN script: 1.5?L /24 hrs providing 1760?calories ( 21?kcals/kg ABW 84?kg) and 90 gms pro ( ~ 1.0 gms/kg ABW 84?kg) per day ? CHO:insulin ratio is ?9.1:1?, with 412 ?gms CHO in TPN , 45 units in TPN bag ? Resume TF as able, once ileus resolves Adjusted PAB lab times, ordered BS checks ? Collaborated with DR Dudley and orders written. Vitals: Temperature Max in 24 hours: Temp (24hrs), Av.9 ?C (98.5 ?F), Min:36.5 ?C (97.7 ?F), Max:37.3 ?C (99.1 ?F) Current Vital Signs: BP (!) 93/48 Pulse 93 Temp 36.5 ?C (97.7 ?F) Resp 27 Ht 172.7 cm (5' 7.99) Wt 86.4 kg (190 lb 7.6 oz) SpO2 99% BMI 28.97 kg/m? Current Weight: Weight: 86.4 kg (190 lb 7.6 oz) Intake AND Output: Intake/Output Summary (Last 24 hours) at 01/30/18 1202 Last data filed at 01/30/18 1200 Gross per 24 hour Intake 2178.7 ml Output 2043 ml Net 135.7 ml Laboratory Data: Recent Labs 01/30/18 0555 01/29/18 2357 01/29/18 1740 01/28/18 0500 NA 142 141 142 < > 138 K 3.5 3.8 3.8 < > 4.1 CHLOR 106 106 106 < > 106 CO2 25 26 26 < > 26 CREAT 1.45* 1.38* 1.31* < > 1.45* BUN 43* 41* 41* < > 45* GLUC 177* 143* 136* < > 171* P 3.1 3.0 3.3 < > 2.7 TPROT 4.8* -- -- -- 4.8* ALB 1.0* 1.1* 1.0* < > 1.0* MG 2.3 2.2 2.3 < > 2.3 CA 6.9* 7.0* 7.0* < > 7.1* < > = values in this interval not displayed. Viry Mosher, RD, LD, [facility] Pager: [phone] Increments: 3 PROGRESS Observed: 01/30/2018 Status: COMPLETED Source: [place] 11:45 AM [facility] OTHER CAMPUS REPOSITORY O ID: [id number] Author: Lora Soliz Service: Critical Care Author Type: Physician Type: Progress Notes Filed: 01/30/2018 2:24 PM Note Text: MICU - PROGRESS NOTE SERVICE DATE: 01/30/2018 SERVICE TIME: 11:45 AM Admission Date: 01/12/2018 AGE: [id number] year old LOS: 18 days REASON FOR ICU ADMISSION: Renal Failure, Respiratory Failure and S/P Surgery Objective Passive cvvhd norepi Npo Wound vac Lines ok PAST MEDICAL HISTORY Diagnosis Date - DIC (disseminated intravascular coagulation) (HCC) 01/12/2018 PAST SURGICAL HISTORY Procedure Laterality Date - LAP CHOLECYSTECT/CHOLANGIOGRAPHY 05-28-09 - REPAIR UMBILICAL NATAN,5+Y/O,REDUC 05-28-09 Social History Marital status: Spouse name: Shelly Years of education: 11 Number of children: 4 Occupational History 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 BP 93/48 Pulse 101 Temp (Src) 97.7 (Axillary) Resp 26 Ht 5' 7.992 (1.73m) Wt 190 lb 7.6 oz (86.4kg) SpO2 99% BMI 28.97 kg/(m2). Temp (24hrs), Av.8 ?C (98.3 ?F), Min:35.8 ?C (96.4 ?F), Max:37.3 ?C (99.1 ?F) NET FLUID BALANCE Intake/Output Summary (Last 24 hours) at 01/30/18 1145 Last data filed at 01/30/18 1100 Gross per 24 hour Intake 2127.3 ml Output 1971 ml Net 156.3 ml MEDICATIONS Current Facility-Administered Medications: calcium gluconate 4 g in NaCl 0.9% 250 mL 4 g INTRAVENOUS ONCE potassium chloride 80-120 mEq oral liquid 80-120 mEq ORAL/FEEDING TUBE PRN potassium chloride iv piggyback 20 mEq in sterile water 100 mL 20 mEq INTRAVENOUS PRN magnesium sulfate in water 2 g in sterile water 50 ml 2 g INTRAVENOUS PRN sodium phosphate 45 mmol in NaCl 0.9% 250 mL 45 mmol INTRAVENOUS PRN calcium gluconate 4 g in NaCl 0.9% 250 mL 4 g INTRAVENOUS PRN fentaNYL 50 mcg/mL 25-50 mcg injection (SUBLIMAZE) 25-50 mcg INTRAVENOUS q 2 H PRN Parenteral Nutrition - Adult INTRAVENOUS ONCE TPN (1800 START) midodrine 10 mg tab(s) (PROAMATINE) 10 mg PEG q 8 H prismaSOL BGK 4 K / 2.5 mEq Ca/Liter 5,000 mL 5,000 mL HEMODIALYSIS continuous (no dispense) prismaSOL BGK 4 K / 2.5 mEq Ca/Liter 5,000 mL 5,000 mL HEMODIALYSIS continuous (no dispense) prismaSOL BGK 4 K / 2.5 mEq Ca/Liter 5,000 mL 5,000 mL HEMODIALYSIS continuous (no dispense) hydrocortisone sodium succinate (PF) 50 mg injection (Solu- CORTEF) 50 mg INTRAVENOUS q 8 H meropenem 500 mg in NaCl 0.9% 100 mL MB+ (MERREM) 500 mg INTRAVENOUS q 8 H ipratropium-albuterol 3 mL nebulizer solution (DUONEB) 3 mL INHALATION q 4 H budesonide 0.5 mg/2 mL 0.5 mg (PULMICORT) 0.5 mg INHALATION BID metoclopramide HCl 5 mg injection (REGLAN) 5 mg INTRAVENOUS q 6 H pantoprazole 40 mg injection (PROTONIX) 40 mg INTRAVENOUS BID AC (0600/1600) midazolam 100 mg in D5W 100 mL (VERSED) 1-10 mg/hr INTRAVENOUS CONTINUOUS docusate sodium oral liquid 100 mg/10 mL (DIOCTO,COLACE) 100 mg OROGASTRIC BID senna leaf extract 176 mg/5 mL 528 mg 15 mL OROGASTRIC BID carboxymethylcellulose sodium 1-2 Drop (CELLUVISC) 1-2 Drop BOTH EYES PRN polyvinyl alcohol-povidone 1.4-0.6 % 1 Drop (REFRESH) 1 Drop BOTH EYES QID PRN heparin 1,000 unit/mL 4,000 Units injection 4,000 Units INTRAVENOUS 3 Times weekly with dialysis heparin 5,000 Units injection 5,000 Units SUBCUTANEOUS q 12 H NaCl 0.9% 1,000 mL iv bolus 1,000 mL INTRAVENOUS PRN DIALYSIS dextrose 40 % 15 g 15 g ORAL PRN Or glucagon 1 mg injection (GLUCAGEN) 1 mg INTRAMUSCULAR PRN Or dextrose 50% in water 25 mL syringe 12.5 g INTRAVENOUS PRN magnesium sulfate 1 g in D5W 100 mL 1 g INTRAVENOUS PRN magnesium sulfate in water 2 g in sterile water 50 ml 2 g INTRAVENOUS PRN NORepinephrine 16 mg in D5W 250 mL (LEVOPHED) 0-30 mcg/min INTRAVENOUS CONTINUOUS Chlorhexidine Gluconate 0.12 % 15 mL (PERIDEX) 15 mL ORAL q 12 H Lines, Drains, and Airways Line Arterial Line 01/19/18 0840 Arterial Line Right Radial 11 days Central Line Quadruple Lumen 01/19/18 1056 Right Neck 11 days Dialysis / Apheresis Double Lumen 01/24/18 1400 Non-tunneled Right Groin 5 days Drain Drain/Tube 01/19/18 1015 Midline Abdomen 11 days GI Feed/Drain 01/27/18 Assessment Gastrostomy 3 days Drain/Tube 01/29/18 1909 Assessment Fecal Management System Rectum less than 1 day Airway Airway Tracheostomy 01/27/18 3 days PHYSICAL EXAMINATION: VITAL SIGNS: As documented General appearance: Well-developed well-nourished. Good hygiene. IJ right, HD groin; right betty radial Skin: Normal turgor. mild pallorous. Not diaphoretic. jaundice. lap scars and retention sutures; wound vac abd Eyes: Pupils equally reactive to light. downgoing. mild jaundice. ENT: No palpable lymphadenopathy. Normocephalic. no neck scar. No thyromegaly. No macroglossia. Supple neck; trach stitched Heme/Lymph: No significant neck adenopathy. Lungs: Clear to auscultation. Decent inspiratory capacity. No overt wheeze. No significant hyperinflation. No fibrotic rales. No pleural rub. No dyspnea at rest. No effusion Heart: Regular rate and rhythm. Normal heart tones. No significant murmur. No peripheral edema. Normal P2 . Good perfusion distally radial. Bounding pulses. warm ABD: Abdomen soft, non-tender. Large retention sutures. PEG to suction. Bowel sounds normal. No masses, organomegaly. Large girth Musculoskeletal: Extremities flaccid. No deformities, no edema,. Neuro: obtunded; no commands, passive, no verbal attempts. Respiratory/Nursing Documentation: O2 Therapy: Ventilator (01/30/18 1012) Invasive Ventilator Mode: Continuous Positive Airway Pressure;Pressure Support Ventilation (01/30/181011) Set Ventilator Respiratory Rate (BPM): 14 (01/30/18 08) Total Respiratory Rate (BPM): 22 (01/30/18 1012) Tidal Volume Set (mL): 550 (01/30/18 08) Exhaled Tidal Volume (mL): 986 (01/30/18 1012) Minute Volume (L): 14.4 (01/30/18 101) Peak Inspiratory Pressure (cm H2O): 15 (01/30/18 1012) PEEP/CPAP (cm H2O): 5 (01/30/18 101) HEMODYNAMIC DATA: reviewed NUTRITION: tpn 1.5lters Enteral Feeds: no VENT: prvc/ 5/40% WEANS: none SEDATION: off versed drip; small fentanyl DRIPS: norepi 3; tpn PRESSORS: norepi CULTURE update: CXR FINDINGS: better OTHER IMAGING: DATA: Diagnostic tests reviewed for today's visit: Most recent labs and imaging results REVIEWED. LABS: Recent Labs 01/30/18 0555 WBC 7.65 RBC 2.57* HB 7.3* HCT 22.4* MCV 87.2 PLT 188 GLUC 177* BUN 43* CREAT 1.45* NA 142 K 3.5 CHLOR 106 CO2 25 TPROT 4.8* ALB 1.0* CA 6.9* ALKPHOS 178* TBILI 6.0* AST 84* ALT 60 MG 2.3 ABG: Recent Labs 01/28/18 1305 PH 7.459* PO2 153.3* PCO2 35.3* Assessment/Plan PROBLEMS: Patient Active Hospital Problem List: Ruptured abdominal aortic aneurysm (AAA) (HCC) (01/12/2018) DIC (disseminated intravascular coagulation) (HCC) (01/12/2018) Hemorrhagic shock (HCC) (01/12/2018) Acute respiratory failure (HCC) (01/12/2018) Cardiac arrest (HCC) (01/12/2018) Hypernatremia (01/12/2018) Hypokalemia (01/12/2018) Hypomagnesemia (01/12/2018) Hypophosphatemia (01/12/2018) Hyperchloremia (01/12/2018) Anoxic encephalopathy (HCC) (01/13/2018) AAA (abdominal aortic aneurysm, ruptured) ([facility]) (01/12/2018) Obesity, Class I, BMI 30-34.9 (01/16/2018) AAA rupture with msof, multiple reops, now fascial closure Improving shock Severe anoxic enceph TERENCE on NURSE'S ASSISTANT, controlled azotemia Recovered thrombocytopenia Vent dep resp failure Trach Peg Ileus Wound issues with wound vac Enterobacter LRTI , cxr fairly clear now; Left infiltrate better Shock Critical illness adrenal insuff Liver failure, cholestasis and post arrest shock hepatitis, mild improvement Hyperlipidemia TG 490 Severe anemia Resolved ple effusions CRITICAL CARE PLAN: 1. psv trials to start; failed sbt but 15 days vent; did well initial psv 12/5 mode but some CheyneStokes periodic breathing due to service architect 2. Tpn at 1700kcal /day, ?low TF; reglan noted (EKG qtc 480) will decrease # 3. Cvvhd; fluid even; remove fluid if off pressors 4. Taper steroids hydrocortisone 25mg 5. merrum 6. 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 Dc betty soon > 10 days, nil norepi 8. ?PICC ok with renal; cvl > 10 days 9. ?:pRBC tx to help stay off norepi, consider daily and if <7 Critical Care Documentation: The patient has the following organ/system impairment(s): Acute blood loss, Circulatory shock, Encephalopathy and Respiratory failure (Acute) terence This patient has a high probability of sudden, clinically significant deterioration, which requires the highest level of physician preparedness to intervene urgently. I managed/supervised life or organ supporting interventions that required frequent physician assessment. I devoted my full attention to the direct care of this patient for the amount of time indicated below. Time I spent with family or surrogate(s) is included only if the patient was incapable of providing the necessary information or participating in medical decision making. Time devoted to teaching is not included. Patient Updated No Family Updated No Discussed with Staff Yes, RN, knot cutter, pharm D Time spent providing critical care services: 40 minutes excluding billable procedures. SIGNATURE: Lora Soliz MD PATIENT NAME: Naveen Akins DATE: January 30, 2018 TIME: 2:24 pm RENAL PANEL Collected: 01/30/2018 Status: F Source: [facility] 11:00 POW SYSTEM REPOSITORY TYPE CODE TESTS RESULT OUT OF REFERENCE UNITS RANGE LAB NA(LOINC) 136-145 mEq/L Sodium Blood 143 LAB K(LOINC) 3.5-5.1 mEq/L Potassium Blood 3.7 LAB CL(LOINC) 98-107 mEq/L Chloride Blood 107 LAB CO2(LOINC) 21-32 mEq/L CO2 Blood 29 LAB GLU(LOINC) 70-99 mg/dL Glucose High Blood 177 LAB BUN(LOINC) 7-18 mg/dL BUN High Blood 41 LAB CREA(LOINC 0.67-1.17 mg/dL ) High Creatinine Blood 1.40 LAB CA(LOINC) 8.5-10.1 mg/dL Low Calcium Blood 7.5 LAB PHOS(LOINC 2.5-4.9 mg/dL ) Phosphorus Blood 3.3 LAB ALB(LOINC) 3.4-5.0 g/dL Low Albumin Blood 1.0 Performed By: #### RENAL #### [place] [id number] MAGNESIUM BLOOD Collected: 01/30/2018 Status: F Source: [facility] 11:00 POW SYSTEM REPOSITORY TYPE CODE TESTS RESULT OUT OF REFERENCE UNITS RANGE LAB MAG(LOINC) 1.6-2.6 mg/dL Magnesium Blood 2.3 Performed By: #### MAG #### [place] [address] PROGRESS Observed: 01/30/2018 Status: COMPLETED Source: [place] 9:42 AM [facility] OTHER [place] REPOSITORY HNO ID: [id number] Author: Keely Garcia) MAGALY Young Service: Wound/Ostomy Author Type: Registered Nurse Type: Progress Notes Filed: 01/30/2018 9:45 AM Note Text: WOUND CARE NURSE PROGRESS NOTE SERVICE DATE: 01/30/2018 SERVICE TIME: 0840 REASON FOR VISIT: Surgical wound TIME SPENT (minutes): 45 ? Patient seen today rounding knot cutter. Wound vac dressing to midline abdomen changed. Applied 3 white, 1 black, 150mmHg, continuous. Wound bed clean. Retention sutures intact. Plan to change wound vac dressing Tuesday02/01/18. ? Documentation from Wound Expert can be found in scanned documents. ? SIGNATURE: Keely Young RN PATIENT NAME: Naveen Akins DATE: January 30, 2018 TIME: 9:42 AM CONTACT#: [id number] PROGRESS Observed: 01/30/2018 Status: COMPLETED Source: [place] 6:31 AM [facility] REPOSITORY HNO ID: [id number] Author: Dionicio Stevens Service: Vascular Surgery Author Type: Resident Type: Progress Notes Filed: 01/30/2018 7:54 AM Note Text: Attestation signed by Venkat Paniagua at 01/30/2018 5:52 PM Patient does open eyes to severely painful stimuli and does not appear to respond to commands when eyes are open. Appearance of a persistent vegetative state at this point in time is present. No significant improvement after 24 hours of no narcotic or sedation. All of this is discussed with family. In addition I discuss a plan this week for getting a PICC line in his arm so we can discontinue his central line in the neck that is been present for about 11 days. In addition later this week we will plan on doing a tunneled dialysis catheter in his left internal jugular. Also we have discussed with the nephrology service and as of tomorrow they will begin doing intermittent as opposed to continuous dialysis. Patient appears to be making some urine so we will put an external catheter on to try to quantitate this. Overall patient is stable and I discuss his status with the family again today. Vascular Surgery Progress Note SERVICE DATE: 01/30/2018 Vascular AND Thoracic Surgery Service Pager: For questions or concerns Mon-Fri 6a-5p please page [phone]. After 5pm and on Weekends and Holidays, please page [phone] if in ICU or [phone] if on RNF. Subjective SUBJECTIVE: NAEON, Ileus Diet: Parenteral Nutrition - Adult Objective OBJECTIVE: Vitals: Temp (24hrs), Av.9 ?C (98.4 ?F), Min:35.8 ?C (96.4 ?F), Max:37.3 ?C (99.1 ?F) BP (!) 93/48 Pulse 94 Temp 36.7 ?C (98.1 ?F) (Axillary) Resp 26 Ht 172.7 cm (5' 7.99) Wt 82 kg (180 lb 12.4 oz) SpO2 99% BMI 27.49 kg/m? O2 Therapy: Ventilator IANDO: Date 01/29/18699 - 01/30/1865801/30/18699 - 01/31/18 0659 Shift 2791-6524 0004-8369 2300-8731 24 Hour Total 3923-0059 1126-8795 7635-9669 24 Hour Total I N T A K E IV 303.7 197.3 171 672 IVPB 151 151 NS 0.9% 32.1 31 52 115.1 NORepinephrine Volume 20.6 16.3 19 55.9 Meropenem (Merrem) 150 100 250 Ampicillin/Sulbactam (Unasyn) IV 100 100 TPN/PPN 489.8 509.7 491 1490.5 TPN 489.8 509.7 491 1490.5 Irrigants 0 0 Irrigant/Flush Amount In (GI Feed/Drain 01/27/18 Assessment Gastrostomy) 0 0 Shift Total 793.5 938 522 7929.5 O U T P U T Urine 0 0 0 Void (ml) 0 0 0 Urine Incontinence/Not Saved 1 x 1 x 2 x 4 x Tubes 620 825 184 4803 Drain/Tube Output (Drain/Tube 01/19/18 1015 Midline Abdomen) 15 0 0 15 Drain/Tube Output (Drain/Tube 01/29/18 1909 Assessment Fecal Management System Rectum) 0 0 0 Output (GI Feed/Drain 01/27/18 Assessment Gastrostomy) 605 907 026 1934 Dialysis 500 336 137 973 Dialysis Output (Ultrafiltration) 500 336 137 973 Shift Total 1120 076 721 9773 Weight (kg) 82 82 82 82 82 82 82 82 MEDICATIONS Current Facility-Administered Medications: calcium gluconate 4 g in NaCl 0.9% 250 mL 4 g INTRAVENOUS ONCE potassium chloride 80-120 mEq oral liquid 80-120 mEq ORAL/FEEDING TUBE PRN potassium chloride iv piggyback 20 mEq in sterile water 100 mL 20 mEq INTRAVENOUS PRN magnesium sulfate in water 2 g in sterile water 50 ml 2 g INTRAVENOUS PRN sodium phosphate 45 mmol in NaCl 0.9% 250 mL 45 mmol INTRAVENOUS PRN calcium gluconate 4 g in NaCl 0.9% 250 mL 4 g INTRAVENOUS PRN fentaNYL 50 mcg/mL 25-50 mcg injection (SUBLIMAZE) 25-50 mcg INTRAVENOUS q 2 H PRN Parenteral Nutrition - Adult INTRAVENOUS ONCE TPN (1800 START) midodrine 10 mg tab(s) (PROAMATINE) 10 mg PEG q 8 H prismaSOL BGK 4 K / 2.5 mEq Ca/Liter 5,000 mL 5,000 mL HEMODIALYSIS continuous (no dispense) prismaSOL BGK 4 K / 2.5 mEq Ca/Liter 5,000 mL 5,000 mL HEMODIALYSIS continuous (no dispense) prismaSOL BGK 4 K / 2.5 mEq Ca/Liter 5,000 mL 5,000 mL HEMODIALYSIS continuous (no dispense) hydrocortisone sodium succinate (PF) 50 mg injection (Solu- CORTEF) 50 mg INTRAVENOUS q 8 H meropenem 500 mg in NaCl 0.9% 100 mL MB+ (MERREM) 500 mg INTRAVENOUS q 8 H ipratropium-albuterol 3 mL nebulizer solution (DUONEB) 3 mL INHALATION q 4 H budesonide 0.5 mg/2 mL 0.5 mg (PULMICORT) 0.5 mg INHALATION BID metoclopramide HCl 5 mg injection (REGLAN) 5 mg INTRAVENOUS q 6 H pantoprazole 40 mg injection (PROTONIX) 40 mg INTRAVENOUS BID AC (0600/1600) midazolam 100 mg in D5W 100 mL (VERSED) 1-10 mg/hr INTRAVENOUS CONTINUOUS docusate sodium oral liquid 100 mg/10 mL (DIOCTO,COLACE) 100 mg OROGASTRIC BID senna leaf extract 176 mg/5 mL 528 mg 15 mL OROGASTRIC BID carboxymethylcellulose sodium 1-2 Drop (CELLUVISC) 1-2 Drop BOTH EYES PRN polyvinyl alcohol-povidone 1.4-0.6 % 1 Drop (REFRESH) 1 Drop BOTH EYES QID PRN heparin 1,000 unit/mL 4,000 Units injection 4,000 Units INTRAVENOUS 3 Times weekly with dialysis heparin 5,000 Units injection 5,000 Units SUBCUTANEOUS q 12 H NaCl 0.9% 1,000 mL iv bolus 1,000 mL INTRAVENOUS PRN DIALYSIS dextrose 40 % 15 g 15 g ORAL PRN Or glucagon 1 mg injection (GLUCAGEN) 1 mg INTRAMUSCULAR PRN Or dextrose 50% in water 25 mL syringe 12.5 g INTRAVENOUS PRN magnesium sulfate 1 g in D5W 100 mL 1 g INTRAVENOUS PRN magnesium sulfate in water 2 g in sterile water 50 ml 2 g INTRAVENOUS PRN NORepinephrine 16 mg in D5W 250 mL (LEVOPHED) 0-30 mcg/min INTRAVENOUS CONTINUOUS Chlorhexidine Gluconate 0.12 % 15 mL (PERIDEX) 15 mL ORAL q 12 H Labs: Recent Labs 01/30/18 0555 01/29/18 2357 01/29/18 1740 01/29/18 1315 01/28/18 1305 01/28/18 0500 NA -- 141 142 -- < > -- < > 138 K -- 3.8 3.8 -- < > -- < > 4.1 CHLOR -- 106 106 -- < > -- < > 106 CO2 -- 26 26 -- < > -- < > 26 BUN -- 41* 41* -- < > -- < > 45* CREAT -- 1.38* 1.31* -- < > -- < > 1.45* GLUC -- 143* 136* -- < > -- < > 171* CA -- 7.0* 7.0* -- < > -- < > 7.1* MG -- 2.2 2.3 -- < > -- < > 2.3 P -- 3.0 3.3 -- < > -- < > 2.7 ALB -- 1.1* 1.0* -- < > -- < > 1.0* AST -- -- -- -- -- -- -- 86* ALT -- -- -- -- -- -- -- 58 ALKPHOS -- -- -- -- -- -- -- 150* TBILI -- -- -- -- -- -- -- 8.4* WBC 7.65 -- -- 10.03* < > -- -- 7.62 HB 7.3* -- 7.9* 8.0* < > -- -- 8.5* HCT 22.4* -- 24.6* 25.2* < > -- -- 27.0* PLT 188 -- -- 168 < > -- -- 131* PH -- -- -- -- -- 7.459* -- -- PCO2 -- -- -- -- -- 35.3* -- -- PO2 -- -- -- -- -- 153.3* -- -- BE -- -- -- -- -- 0.8 -- -- < > = values in this interval not displayed. Exam: GENERAL: No distress NEURO: Opens eyes, no tracking, not following HEENT: normocephalic, atraumatic LUNGS: Unlabored breathing O2 Therapy: Ventilator CARDIAC: Afib, Levo @ 4 ABDOMEN: Soft, non-tender, mild D, no PS, Vac/retentions intact EXTREMITIES: MAK, No deformities, Palpable distal pulses SKIN: Skin color, texture, turgor normal, No rashes or lesions ASSESSMENT AND PLAN: Active Hospital Problems Diagnosis Date Noted - Ruptured abdominal aortic aneurysm (AAA) ([facility]) 01/12/2018 - Obesity, Class I, BMI 30-34.9 01/16/2018 - Anoxic encephalopathy ([facility]) 01/13/2018 - DIC (disseminated intravascular coagulation) (HCC) 01/12/2018 - Hemorrhagic shock (HCC) 01/12/2018 - Acute respiratory failure (HCC) 01/12/2018 - Cardiac arrest (HCC) 01/12/2018 - Hypernatremia 01/12/2018 - Hypokalemia 01/12/2018 - Hypomagnesemia 01/12/2018 - Hypophosphatemia 01/12/2018 - Hyperchloremia 01/12/2018 - AAA (abdominal aortic aneurysm, ruptured) (HCC) 01/12/2018 Overview Note: Added automatically from request for surgery [id number] 77 year old male with Ruptured AAA s/p Emergent Repair, takeback washout, repair of serosal tears x2, on 01/12, hemorrhagic shock, acute resp failure with pulm edema, TERENCE, SVT, s/p Third Look Laparotomy and?washout on 01/14, fourth look, washout, vac change on 01/16, Partial fascial closure on 01/19, Fascial closure/Retention Sutures on 01/21, Trach and PEG on 01/27 ? - Vent mgmt per MICU - NPO/TPN - Acute blood loss and dilutional anemia and thrombocytopenia - monitor, stable - TERENCE -->?CVVHD per?Nephro, diurese as tolerates - Meropenum for E-bacter HCAP - Cont WV --> wound care following for VAC changes - Solucortef 50mg q8h per MICU - Leukocytosis - resolved, cont Abx for HCAP - Levo @ 4 - Sedation off - Reglan, PEG to drain - Daily CXR stable - Code Status: family wants to maintain Full Code status ?? Assessment and plan discussed with attending: Dr. Paniagua SIGNATURE: Dionicio Stevens MD PATIENT NAME: Naveen Akins DATE: January 30, 2018 TIME: 6:31 AM Vascular AND Thoracic Surgery Service Pager: For questions or concerns Mon-Tue 6a-5p please page [phone]. After 5pm and on Weekends and Holidays, please page [phone] if in ICU or [phone] if on RNF. IONIZED CALCIUM Collected: 01/30/2018 Status: F Source: [facility] 5:55 AM HEALTH SYSTEM REPOSITORY TYPE CODE TESTS RESULT OUT OF REFERENCE UNITS RANGE LAB CAION(LOINC 4.43-4.93 mg/dL ) Low Ionized 3.95 Calcium LAB PHCAI(LOINC 7.320-7.420 ) pH High 7.546 LAB CAPH(LOINC) 4.36-4.73 mg/dL Low Ionized 4.26 Ca,PH7.4 Performed By: #### IONCA #### [facility] [address] [place] [id number] HEMOGRAM/DIFF Collected: 01/30/2018 Status: F Source: [facility] 5:55 AM HEALTH SYSTEM REPOSITORY TYPE CODE TESTS RESULT OUT OF REFERENCE UNITS RANGE LAB WBC(LOINC) 4.23-9.07 thou/cmm WBC 7.65 LAB RBC(LOINC) 4.63-6.08 mil/cmm Low RBC 2.57 LAB HGB(LOINC) 13.7-17.5 g/dL Low Hgb 7.3 LAB HCT(LOINC) 40.1-51.0 % Low Hct 22.4 LAB MCV(LOINC) 83.2-95.6 fl MCV 87.2 LAB MCH(LOINC) 25.7-32.2 pg MCH 28.4 LAB MCHC(LOINC 32.3-36.5 % ) MCHC 32.6 LAB RDW(LOINC) 11.6-14.4 % RDW High 20.8 LAB RDWSD(LOIN 36.1-45.8 fl C) RDW SD High 65.0 LAB PLT(LOINC) 141-365 thou/cmm Platelet 188 LAB MPV(LOINC) 8.7-12.0 fl MPV High 12.1 LAB SEG(LOINC) % Seg Neutrophil 75.4 LAB IGRE(LOINC % ) Immature Grans 6.90 LAB LYMPH(LOIN % C) Lymphocyte 8.5 LAB MNO(LOINC) % Monocyte 9.0 LAB EOSIN(LOIN % C) Eosinophil 0.1 LAB BASO(LOINC % ) Basophil 0.1 LAB SEGN(LOINC 1.78-5.38 thou/cmm ) Abs. High Neut (ANC) 5.77 LAB IGAB(LOINC 0.00-0.05 thou/cmm ) Abs High Immature Grans 0.53 LAB LYMN(LOINC 0.84-2.85 thou/cmm ) Low Abs. Lymph 0.65 LAB MONON(LOIN 0.30-0.82 thou/cmm C) Abs. Rincon 0.69 LAB EOSN(LOINC 0.04-0.54 thou/cmm ) Low Abs. Eosin 0.01 LAB BASON(LOIN 0.01-0.08 thou/cmm C) Abs. Baso 0.01 Result Comment: Smear scanned; tech agrees with automated differential Performed By: #### [id number] #### [place] [address] RENAL PANEL Collected: 01/30/2018 Status: F Source: [facility] 5:55 AM HEALTH SYSTEM REPOSITORY TYPE CODE TESTS RESULT OUT OF REFERENCE UNITS RANGE LAB NA(LOINC) 136-145 mEq/L Sodium Blood 142 LAB K(LOINC) 3.5-5.1 mEq/L Potassium Blood 3.5 LAB CL(LOINC) 98-107 mEq/L Chloride Blood 106 LAB CO2(LOINC) 21-32 mEq/L CO2 Blood 25 LAB GLU(LOINC) 70-99 mg/dL Glucose High Blood 177 LAB BUN(LOINC) 7-18 mg/dL BUN High Blood 43 LAB CREA(LOINC 0.67-1.17 mg/dL ) High Creatinine Blood 1.45 LAB CA(LOINC) 8.5-10.1 mg/dL Low Calcium Blood 6.9 LAB PHOS(LOINC 2.5-4.9 mg/dL ) Phosphorus Blood 3.1 LAB ALB(LOINC) 3.4-5.0 g/dL Low Albumin Blood 1.0 Performed By: #### RENAL #### [place] [address] MAGNESIUM BLOOD Collected: 01/30/2018 Status: F Source: [facility] 5:55 AM HEALTH SYSTEM REPOSITORY TYPE CODE TESTS RESULT OUT OF REFERENCE UNITS RANGE LAB MAG(LOINC) 1.6-2.6 mg/dL Magnesium Blood 2.3 Performed By: #### MAG #### [place] [address] HEPATIC PANEL Collected: 01/30/2018 Status: F Source: [facility] 5:55 AM HEALTH SYSTEM REPOSITORY TYPE CODE TESTS RESULT OUT OF REFERENCE UNITS RANGE LAB ALT(LOINC) 12-78 U/L ALT-SGPT Blood 60 LAB ALKP(LOINC 46-116 U/L ) Alk High Phosphatase 178 LAB TP(LOINC) 6.4-8.2 g/dL Low Total Protein 4.8 LAB AST(LOINC) 9-37 U/L AST-SGOT High Blood 84 LAB BILIT(LOIN 0.2-1.0 mg/dL C) Total High Bilirubin 6.0 LAB DBIL(LOINC 0.00-0.20 mg/dL ) Direct High Bilirubin 5.15 Performed By: #### HEPAP #### [facility] [address] [place] [address] CHEST 1 VIEW Observed: 01/30/2018 Status: F Source: [facility] 5:25 AM HEALTH SYSTEM REPOSITORY Performed at [facility] APPROVED BY: Yajaira Veronica MD EXAM TITLE: CHEST 1 VIEW DATE: 01/30/2018 05:21 INDICATION: Dyspnea COMPARISON: 01/29/2018 FINDINGS: Tracheostomy tube and right central venous catheter are stable. There is no visible pneumothorax. Lungs are clear of focal consolidation. The heart is nonenlarged. IMPRESSION: Stable appearance PROGRESS Observed: 01/30/2018 Status: COMPLETED Source: [place] 5:02 AM [facility] REPOSITORY HNO ID: [id number] Author: Roxane (Rn) Mervin RN Service: Dialysis Author Type: Registered Nurse Type: Progress Notes Filed: 01/30/2018 5:04 AM Note Text: CRRT restarted without problem after rising TMP. Hemosafe device on x 2 with lines reversed. Report given to MAGALY Anaya. Pt stable NURSING PROG Observed: 01/30/2018 Status: COMPLETED Source: [place] 3:54 AM [facility] OTHER [place] REPOSITORY HNO ID: [id number] Author: Trish TylerRn) MAGALY Plasencia Service: (none) Author Type: Registered Nurse Type: Nursing Progress Note Filed: 01/30/2018 3:55 AM Note Text: 0345 pt clotted off dialysis filter, dialysis nurse called at this time to change set up RENAL PANEL Collected: 01/29/2018 Status: F Source: [facility] 11:57 PM HEALTH SYSTEM REPOSITORY TYPE CODE TESTS RESULT OUT OF REFERENCE UNITS RANGE LAB NA(LOINC) 136-145 mEq/L Sodium Blood 141 LAB K(LOINC) 3.5-5.1 mEq/L Potassium Blood 3.8 LAB CL(LOINC) 98-107 mEq/L Chloride Blood 106 LAB CO2(LOINC) 21-32 mEq/L CO2 Blood 26 LAB GLU(LOINC) 70-99 mg/dL Glucose High Blood 143 LAB BUN(LOINC) 7-18 mg/dL BUN High Blood 41 LAB CREA(LOINC 0.67-1.17 mg/dL ) High Creatinine Blood 1.38 LAB CA(LOINC) 8.5-10.1 mg/dL Low Calcium Blood 7.0 LAB ALB(LOINC) 3.4-5.0 g/dL Low Albumin Blood 1.1 LAB PHOS(LOINC 2.5-4.9 mg/dL ) Phosphorus Blood 3.0 Performed By: #### RENAL #### [place] [address] MAGNESIUM BLOOD Collected: 01/29/2018 Status: F Source: [facility] 11:57 PM HEALTH SYSTEM REPOSITORY TYPE CODE TESTS RESULT OUT OF REFERENCE UNITS RANGE LAB MAG(LOINC) 1.6-2.6 mg/dL Magnesium Blood 2.2 Performed By: #### MAG #### [place] [address] TRIGLYCERIDE BLOOD Collected: 01/29/2018 Status: F Source: [facility] 11:57 PM HEALTH SYSTEM REPOSITORY TYPE CODE TESTS RESULT OUT OF REFERENCE UNITS RANGE LAB TRIG(LOINC 0-149 mg/dL ) Triglyceride High Blood 432 Result Comment: < 200 Desirable Result invalid if not a fasting specimen. Performed By: #### TRIG #### [place] [address] ALLIED HEALTH Observed: 01/29/2018 Status: COMPLETED Source: [place] 7:15 PM CLINIC OTHER CAMPUS REPOSITORY O ID: [id number] Author: Gladys (Envelope Stamping Machine Operator) Chaplain Zeb Service: Spiritual Care Author Type: Envelope Stamping Machine Operator Type: Allied Health Filed: 01/29/2018 7:46 PM Note Text: SPIRITUALCARE Spiritual Care Visit- Brief Note Name: Naveen Akins Date: January 29, 2018 Notes: Envelope Stamping Machine Operator connected with family in waiting room. Daughter Ruth gave me the update on patient. Prayed for the patient in his room. Envelope Stamping Machine Operator Signature: Chaplain Suman To contact the [facility] Care Department: Please call [phone] or Page the On-Call Envelope Stamping Machine Operator at pager [phone] Thank you for the opportunity to be of service. This is an electronically created document. IF PRINTED, PLEASE DO NOT REMOVE FROM THE CHART OR MODIFY PRINTED COPY. HGB Collected: 01/29/2018 Status: F Source: [facility] 5:40 HEALTH SYSTEM REPOSITORY TYPE CODE TESTS RESULT OUT OF RANGE REFERENCE UNITS LAB HGBI(LOINC) 13.7-17.5 g/dL Low Hgb 7.9 Performed By: #### HGBI #### [place] [address] HCT Collected: 01/29/2018 Status: F Source: [facility] 5:40 HEALTH SYSTEM REPOSITORY TYPE CODE TESTS RESULT OUT OF RANGE REFERENCE UNITS LAB HCTI(LOINC) 40.1-51.0 % Low Hct 24.6 Performed By: #### HCTI #### [place] [address] RENAL PANEL Collected: 01/29/2018 Status: F Source: [facility] 5:40 HEALTH SYSTEM REPOSITORY TYPE CODE TESTS RESULT OUT OF REFERENCE UNITS RANGE LAB NA(LOINC) 136-145 mEq/L Sodium Blood 142 LAB K(LOINC) 3.5-5.1 mEq/L Potassium Blood 3.8 LAB CL(LOINC) 98-107 mEq/L Chloride Blood 106 LAB CO2(LOINC) 21-32 mEq/L CO2 Blood 26 LAB GLU(LOINC) 70-99 mg/dL Glucose High Blood 136 LAB BUN(LOINC) 7-18 mg/dL BUN High Blood 41 LAB CREA(LOINC 0.67-1.17 mg/dL ) High Creatinine Blood 1.31 LAB CA(LOINC) 8.5-10.1 mg/dL Low Calcium Blood 7.0 LAB PHOS(LOINC 2.5-4.9 mg/dL ) Phosphorus Blood 3.3 LAB ALB(LOINC) 3.4-5.0 g/dL Low Albumin Blood 1.0 Performed By: #### RENAL #### [facility] [address] [place], [place] [address] MAGNESIUM BLOOD Collected: 01/29/2018 Status: F Source: [facility] 5:40 PM HEALTH SYSTEM REPOSITORY TYPE CODE TESTS RESULT OUT OF REFERENCE UNITS RANGE LAB MAG(LOINC) 1.6-2.6 mg/dL Magnesium Blood 2.3 Performed By: #### MAG #### [facility] [address] [place], [place] [address] ALLIED HEALTH Observed: 01/29/2018 Status: COMPLETED Source: [place] 2:58 PM [facility] OTHER [place] REPOSITORY HNO ID: [id number] Author: Chaplain Alfredo (Chaplain) Service: Spiritual Care Author Type: Envelope Stamping Machine Operator Type: Allied Health Filed: 01/29/2018 3:01 PM Note Text: SPIRITUALCARE Spiritual Care Visit- Brief Note Name: Naveen Akins Date: January 29, 2018 Notes: Patient's family stopped Envelope Stamping Machine Operator in the hallway and requested prayer for patient. Upon arrival patient was alone and nonverbal. Envelope Stamping Machine Operator read scriptures and prayed at beside for patient. Envelope Stamping Machine Operator Signature: Chaplain Juni To contact the Spiritual Care Department: Please call [phone] or Page the On-Call Envelope Stamping Machine Operator at pager [phone] Thank you for the opportunity to be of service. This is an electronically created document. IF PRINTED, PLEASE DO NOT REMOVE FROM THE CHART OR MODIFY PRINTED COPY. PROGRESS Observed: 01/29/2018 Status: COMPLETED Source: [place] 2:26 PM [facility] OTHER [place] REPOSITORY HNO ID: [id number] Author: Adriane Carvalho Service: Critical Care Author Type: Physician Type: Progress Notes Filed: 01/29/2018 2:27 PM Note Text: SERVICE DATE: 01/29/2018 SERVICE TIME: 2:26 PM NICU CONSULT PROGRESS NOTE Admission Date: 01/12/2018 Hospital Day # 17 SUBJECTIVE Interval HPI: Opens eyes, grimices to pain, does not follow command . Weak localization In UE Slowly improving exam OBJECTIVE Vital Signs (last filed) Range in last 24h Temp: (!) 35.8 ?C (96.4 ?F) (01/29/18 1200) Temp Min: 35.8 ?C (96.4 ?F) Max: 37.3 ?C (99.1 ?F) Pulse: 100 (01/29/18 1400) Pulse Min: 89 Max: 108 Resp: (!) 31 (01/29/18 1400) Resp Min: 14 Max: 42 BP: (!) 93/48 (01/28/18 2100) BP Min: 93/48 Max: 93/48 MAP Non Invasive (Mean Arterial Pressure): 58 (01/28/18 2100) MAP Non Invasive (Mean Arterial Pressure) Min: 58 Max: 58 Arterial BP 1: 108/54 (01/29/18 1400) Arterial BP 1 Min: 78/41 Max: 172/72 SpO2: 99 % (01/29/18 1400) SpO2 Min: 98 % Max: 100 % Pain Score: 0/10 (01/29/18 1400) Fluid Balance: Intake/Output Summary (Last 24 hours) at 01/29/18 0659 Last data filed at 01/29/18 0600 Gross per 24 hour Intake 984.7 ml Output 2216 ml Net -1231.3 ml Last Weight: 82 kg (180 lb 12.4 oz) (01/29/18 0700) Admit Weight: 80.1 kg (176 lb 9.4 oz) (01/12/18 2317) Parenteral Nutrition - Adult Parenteral Nutrition - Adult Lines, Drains, and Airways Line Arterial Line 01/19/18 0840 Arterial Line Right Radial 10 days Central Line Quadruple Lumen 01/19/18 1056 Right Neck 10 days Dialysis / Apheresis Double Lumen 01/24/18 1400 Non-tunneled Right Groin 5 days Drain Drain/Tube 01/19/18 1015 Midline Abdomen 10 days GI Feed/Drain 01/27/18 Assessment Gastrostomy 2 days Airway Airway Tracheostomy 01/27/18 2 days Vent/Oxygen: Mechanical Ventilator Settings: Exhaled Tidal Volume (mL): 878 Spontaneous Tidal Volume (mL): 142 Total Respiratory Rate (BPM): 26 Pressure Support (cm H2O): 15 PEEP/CPAP (cm H2O): 5 %FIO2 Min: 30 Max: 40 Physical Examination Performed Oral Mucosa: Moist mucous membranes Eyes: PERRLA Neck: Unremarkable; No adenopathy or JVD Cardiovascular: Regular rhythm Respiratory: Rales bilat Abdomen: Soft and Positive bowel sounds Extremities: Edema- Yes Peripheral Pulses- Present all extremities Capillary Refill- less than 3 seconds Skin: Abnormalities- No Breakdown- Yes. Per nursing documentation Neurologic: opens eyes, grimace to deep stimuli, no command following. Bilateral UE weak Flexion localization in UE Improving exam Infusion Medications Parenteral Nutrition - Adult Parenteral Nutrition - Adult Last Rate: 62.5 mL/hr at 01/28/18 1800 prismaSOL BGK 4 K / 2.5 mEq Ca/Liter prismaSOL BGK 4 K / 2.5 mEq Ca/Liter prismaSOL BGK 4 K / 2.5 mEq Ca/Liter midazolam iv infusion (STANDARD)(VERSED) Last Rate: Stopped (01/27/18 2300) NORepinephrine Last Rate: 5 mcg/min (01/29/18 1218) Diagnostic tests reviewed today: Most recent labs and imaging results. CARE COORDINATION: No Patient Care Coordination Note on file. ASSESSMENT AND PLAN Assessment AND Plan, Hosp Problems our Service Addressed Neurology Anoxic encephalopathy (HCC) S/p AAA repair and cardiac arrest ., anoxic encephalopathy suspect he may have suffered anoxic encephalopathy exam is limited. Need to continue supportive care Likely he may need dependant care Exam slowly improving. suspect indeterminate prognosis would benefit from trail of supportive care and re evaluate the situation in few months please call us if any questions, will sign off for now Medication and Non-Pharmacologic VTE Prophylaxis/Anticoagulants Anticoagulant AND Antiplatelet Medications Start Dose Route Frequency Ordered Stop 01/16/18 1632 heparin 1,000 unit/mL 4,000 Units injection 4,000 Units INTRAVENOUS 3 TIMES WEEKLY WITH DIALYSIS 01/16/18 1632 -- 01/15/18 0900 heparin 5,000 Units injection 5,000 Units SUBCUTANEOUS EVERY 12 HOURS 01/14/18 1444 -- 01/12/18 0630 vte pharmacologic prophylaxis contraindicated (ny,nc) 01/12/18 0630 pneumatic compression stockings ([facility] STAFF PHYSICIAN NOTE OF PERSONAL INVOLVEMENT IN CARE Patient/Family Updated: family has been updated regarding the goals of care, medical plan for the day, employee relations consultant recommendations, medical disposition and current medical condition/prognosis as and if clinically indicated. All questions and concerns were answered and addressed at this juncture. This patient has a high probability of sudden, clinically significant deterioration, which requires the highest level of physician preparedness to intervene urgently. I managed/supervised life or organ supporting interventions that required frequent physician assessment. I devoted my full attention to the direct care of this patient for the amount of time indicated below. Time I spent with family or surrogate(s) is included only if the patient was incapable of providing the necessary information or participating in medical decision making. Time devoted to teaching and to any procedures I billed separately is not included. Critical Care Documentation: The patient has the following organ/system impairment(s): anoxic encephalopathy Time spent providing critical care services: 21 minutes. SIGNATURE: Adriane Carvalho MD PATIENT NAME: Naveen Akins DATE: January 29, 2018 TIME: 2:26 PM PAGER/CONTACT #: [phone] PROGRESS Observed: 01/29/2018 Status: COMPLETED Source: [place] 1:54 PM CLINIC OTHER CAMPUS REPOSITORY O ID: [id number] Author: Paulo Lovelace (Cns) Service: Critical Care Author Type: Nurse Specialist Type: Progress Notes Filed: 01/29/2018 2:16 PM Note Text: MICU - PROGRESS NOTE SERVICE DATE: 01/29/2018 SERVICE TIME: 1:55 PM Admission Date: 01/12/2018 AGE: [id number] year old LOS: 17 days Subjective REASON FOR ICU ADMISSION: Respiratory Failure Objective PROBLEMS: ACTIVE PROBLEM LIST Gallstone Pancreatitis Ruptured Abdominal Aortic Aneurysm (Aaa) (Hcc) Dic (Disseminated Intravascular Coagulation) (Hcc) Hemorrhagic Shock (Hcc) Acute Respiratory Failure (Hcc) Cardiac Arrest (Hcc) Hypernatremia Hypokalemia Hypomagnesemia Hypophosphatemia Hyperchloremia Anoxic Encephalopathy (Hcc) Aaa (Abdominal Aortic Aneurysm, Ruptured) (Hcc) Obesity, Class I, Bmi 30-34.9 PAST MEDICAL HISTORY Diagnosis Date - DIC (disseminated intravascular coagulation) (HCC) 01/12/2018 PAST SURGICAL HISTORY Procedure Laterality Date - LAP CHOLECYSTECT/CHOLANGIOGRAPHY 05-28-09 - REPAIR UMBILICAL NATAN,5+Y/O,REDUC 05-28-09 Social History Marital status: Spouse name: Shelly Years of education: 11 Number of children: 4 Occupational History 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 BP 93/48 Pulse 97 Temp (Src) 96.4 (Axillary) Resp 25 Ht 5' 7.992 (1.73m) Wt 180 lb 12.4 oz (82.0kg) SpO2 99% BMI 27.49 kg/(m2). Temp (24hrs), Av.8 ?C (98.3 ?F), Min:35.8 ?C (96.4 ?F), Max:37.3 ?C (99.1 ?F) NET FLUID BALANCE Intake/Output Summary (Last 24 hours) at 01/29/18 1355 Last data filed at 01/29/18 1300 Gross per 24 hour Intake 1673.7 ml Output 2657 ml Net -983.3 ml MEDICATIONS Current Facility-Administered Medications: potassium chloride 80-120 mEq oral liquid 80-120 mEq ORAL/FEEDING TUBE PRN potassium chloride iv piggyback 20 mEq in sterile water 100 mL 20 mEq INTRAVENOUS PRN magnesium sulfate in water 2 g in sterile water 50 ml 2 g INTRAVENOUS PRN sodium phosphate 45 mmol in NaCl 0.9% 250 mL 45 mmol INTRAVENOUS PRN calcium gluconate 4 g in NaCl 0.9% 250 mL 4 g INTRAVENOUS PRN fentaNYL 50 mcg/mL 25-50 mcg injection (SUBLIMAZE) 25-50 mcg INTRAVENOUS q 2 H PRN Parenteral Nutrition - Adult INTRAVENOUS ONCE TPN (1800 START) midodrine 10 mg tab(s) (PROAMATINE) 10 mg PEG q 8 H prismaSOL BGK 4 K / 2.5 mEq Ca/Liter 5,000 mL 5,000 mL HEMODIALYSIS continuous (no dispense) prismaSOL BGK 4 K / 2.5 mEq Ca/Liter 5,000 mL 5,000 mL HEMODIALYSIS continuous (no dispense) prismaSOL BGK 4 K / 2.5 mEq Ca/Liter 5,000 mL 5,000 mL HEMODIALYSIS continuous (no dispense) hydrocortisone sodium succinate (PF) 50 mg injection (Solu- CORTEF) 50 mg INTRAVENOUS q 8 H meropenem 500 mg in NaCl 0.9% 100 mL MB+ (MERREM) 500 mg INTRAVENOUS q 8 H ipratropium-albuterol 3 mL nebulizer solution (DUONEB) 3 mL INHALATION q 4 H budesonide 0.5 mg/2 mL 0.5 mg (PULMICORT) 0.5 mg INHALATION BID metoclopramide HCl 5 mg injection (REGLAN) 5 mg INTRAVENOUS q 6 H pantoprazole 40 mg injection (PROTONIX) 40 mg INTRAVENOUS BID AC (0600/1600) midazolam 100 mg in D5W 100 mL (VERSED) 1-10 mg/hr INTRAVENOUS CONTINUOUS docusate sodium oral liquid 100 mg/10 mL (DIOCTO,COLACE) 100 mg OROGASTRIC BID senna leaf extract 176 mg/5 mL 528 mg 15 mL OROGASTRIC BID carboxymethylcellulose sodium 1-2 Drop (CELLUVISC) 1-2 Drop BOTH EYES PRN polyvinyl alcohol-povidone 1.4-0.6 % 1 Drop (REFRESH) 1 Drop BOTH EYES QID PRN heparin 1,000 unit/mL 4,000 Units injection 4,000 Units INTRAVENOUS 3 Times weekly with dialysis heparin 5,000 Units injection 5,000 Units SUBCUTANEOUS q 12 H NaCl 0.9% 1,000 mL iv bolus 1,000 mL INTRAVENOUS PRN DIALYSIS dextrose 40 % 15 g 15 g ORAL PRN Or glucagon 1 mg injection (GLUCAGEN) 1 mg INTRAMUSCULAR PRN Or dextrose 50% in water 25 mL syringe 12.5 g INTRAVENOUS PRN magnesium sulfate 1 g in D5W 100 mL 1 g INTRAVENOUS PRN magnesium sulfate in water 2 g in sterile water 50 ml 2 g INTRAVENOUS PRN NORepinephrine 16 mg in D5W 250 mL (LEVOPHED) 0-30 mcg/min INTRAVENOUS CONTINUOUS Chlorhexidine Gluconate 0.12 % 15 mL (PERIDEX) 15 mL ORAL q 12 H Lines, Drains, and Airways Line Arterial Line 01/19/18 0840 Arterial Line Right Radial 10 days Central Line Quadruple Lumen 01/19/18 1056 Right Neck 10 days Dialysis / Apheresis Double Lumen 01/24/18 1400 Non-tunneled Right Groin 4 days Drain Drain/Tube 01/19/18 1015 Midline Abdomen 10 days GI Feed/Drain 01/27/18 Assessment Gastrostomy 2 days Airway Airway Tracheostomy 01/27/18 2 days PHYSICAL EXAM PERFORMED: Cardiovascular: Regular rhythm Respiratory: Reduced breath sounds bilat %FIO2 Min: 30 Max: 40 Abdomen: Distended Extremities: Edema- Yes Anasarca is improving Neurologic: Unresponsive Respiratory/Nursing Documentation: O2 Therapy: Ventilator (01/29/18 1300) Invasive Ventilator Mode: Continuous Positive Airway Pressure;Pressure Support Ventilation (01/29/18 1220) Set Ventilator Respiratory Rate (BPM): 18 (01/29/18 1130) Total Respiratory Rate (BPM): 26 (01/29/18 1220) Tidal Volume Set (mL): 480 (01/29/18 1130) Exhaled Tidal Volume (mL): 878 (01/29/18 1220) Minute Volume (L): 16.2 (01/29/18 1130) Peak Inspiratory Pressure (cm H2O): 10 (01/29/18 0804) PEEP/CPAP (cm H2O): 5 (01/29/18 1220) HEMODYNAMIC DATA: Reviewed NUTRITION: Enteral Feeds: Off 07/08 probable GI Bleeding NPO DATA: Diagnostic tests reviewed for today's visit, films/specimens were personally reviewed by me: Most recent labs and imaging results. LABS: Recent Labs 01/29/18 1315 01/29/18 1140 01/28/18 0500 WBC 10.03* -- < > 7.62 RBC 2.85* -- < > 3.03* HB 8.0* -- < > 8.5* HCT 25.2* -- < > 27.0* MCV 88.4 -- < > 89.1 PLT 168 -- < > 131* GLUC -- 135* < > 171* BUN -- 43* < > 45* CREAT -- 1.37* < > 1.45* NA -- 141 < > 138 K -- 3.7 < > 4.1 CHLOR -- 106 < > 106 CO2 -- 26 < > 26 TPROT -- -- -- 4.8* ALB -- 1.1* < > 1.0* CA -- 7.0* < > 7.1* ALKPHOS -- -- -- 150* TBILI -- -- -- 8.4* AST -- -- -- 86* ALT -- -- -- 58 MG -- 2.4 < > 2.3 < > = values in this interval not displayed. ABG: Recent Labs 01/28/18 1305 PH 7.459* PO2 153.3* PCO2 35.3* Assessment/Plan IMPRESSION: Critical Care Documentation: The patient has the following organ/system impairment(s): ? 1.Acute hypoxic respiratory failure/ARDS/Bilat pleuaral effusions-remains intubated on 40% FIO2 2. Ruptured AAA ?Sp repair-Wound closed vac in place draining sm amt serosanguinous drainage 3.SP cardiac arrest 4.Shock-Levophed support at 5mcg 5. Pt is nonresponsive-even to noxious stimuli-Encephalopathy 6.Thrombocytopenia-platelet 119,000 7.Nutritional support-TPN 8.Sinus tachycardia-SVT resolved-frequent PACs this AM 9.TERENCE on CKD-on CRRT 10. Fentanyl drip at 150mcg/kh for pain control 11. Ileus/gastroparesis-Reglan 12. Acute blood loss anemia-dropped 2 Gms since yesterday 13.Hyperlipidemia improving 14.Trach /PEG 15. QTC is 461 msec 16.When placed to low suction-PEG drained Dk sanguinous fluid which appeared to be dark blood-surgical tech notified-stat Hgb is 8 GM-recheck at 6pm 17.Failed t piece trial-RR went into 40s-then dropped to 21/min-some Seth Stoke breathing observed 18. Tube feedings off 2/2 emesis and high residuals ? This patient has a high probability of sudden, clinically significant deterioration, which requires the highest level of physician preparedness to intervene urgently. I managed/supervised life or organ supporting interventions that required frequent physician assessment. I devoted my full attention to the direct care of this patient for the amount of time indicated below. Time I spent with family or surrogate(s) is included only if the patient was incapable of providing the necessary information or participating in medical decision making. Time devoted to teaching is not included. Discussed with staff/patient/family Time spent providing critical care services: 40 minutes excluding procedures. SIGNATURE: Paulo Lovelace APRN.MAINTENANCE TEAM MEMBER PATIENT NAME: Naveen Akins DATE: January 29, 2018 TIME: 1:55 PM HEMOGRAM/DIFF Collected: 01/29/2018 Status: F Source: [facility] 1:15 PM HEALTH SYSTEM REPOSITORY TYPE CODE TESTS RESULT OUT OF REFERENCE UNITS RANGE LAB WBC(LOINC) 4.23-9.07 thou/cmm WBC High 10.03 LAB RBC(LOINC) 4.63-6.08 mil/cmm Low RBC 2.85 LAB HGB(LOINC) 13.7-17.5 g/dL Low Hgb 8.0 LAB HCT(LOINC) 40.1-51.0 % Low Hct 25.2 LAB MCV(LOINC) 83.2-95.6 fl MCV 88.4 LAB MCH(LOINC) 25.7-32.2 pg MCH 28.1 LAB MCHC(LOINC 32.3-36.5 % ) Low MCHC 31.7 LAB RDW(LOINC) 11.6-14.4 % RDW High 20.6 LAB RDWSD(LOIN 36.1-45.8 fl C) RDW SD High 64.7 LAB PLT(LOINC) 141-365 thou/cmm Platelet 168 LAB MPV(LOINC) 8.7-12.0 fl MPV High 12.7 LAB SEG(LOINC) % Seg Neutrophil 79.1 LAB IGRE(LOINC % ) Immature Grans 5.90 LAB LYMPH(LOIN % C) Lymphocyte 7.6 LAB MNO(LOINC) % Monocyte 7.0 LAB EOSIN(LOIN % C) Eosinophil 0.1 LAB BASO(LOINC % ) Basophil 0.3 LAB SEGN(LOINC 1.78-5.38 thou/cmm ) Abs. High Neut (ANC) 7.93 LAB IGAB(LOINC 0.00-0.05 thou/cmm ) Abs High Immature Grans 0.59 LAB LYMN(LOINC 0.84-2.85 thou/cmm ) Low Abs. Lymph 0.76 LAB MONON(LOIN 0.30-0.82 thou/cmm C) Abs. Rincon 0.70 LAB EOSN(LOINC 0.04-0.54 thou/cmm ) Low Abs. Eosin 0.01 LAB BASON(LOIN 0.01-0.08 thou/cmm C) Abs. Baso 0.03 Result Comment: Smear scanned; tech agrees with automated differential Performed By: #### [id number] #### [facility] [address] [id number] PROGRESS Observed: 01/29/2018 Status: COMPLETED Source: [place] 12:10 PM CLINIC OTHER CAMPUS REPOSITORY HNO ID: [id number] Author: Dorcas Palafox Service: Critical Care Author Type: Physician Type: Progress Notes Filed: 01/29/2018 1:07 PM Note Text: MICU - PROGRESS NOTE SERVICE DATE: 01/29/2018 SERVICE TIME: 12:10 PM Admission Date: 01/12/2018 AGE: [id number] year old LOS: 17 days Subjective REASON FOR ICU ADMISSION: Pneumonia, Renal Failure, Respiratory Failure, Sepsis, Shock, S/P Surgery and S/P ruptured AAA on 01/12. Unresponsive to name and touch and painful stimuli. All sedation is off. RR 38-40x/min on PRVC-18 Vt-480 P-5 FiO2 40% SaO2 99% Ve-14-17l/min. No significant secretions noted from the trach tube but dark bloody around the tube. Levophed 0-5mcg/min throughout the morning but now off. Objective VITAL SIGNS (last 24hrs min/max): Temp Av.9 ?C (98.5 ?F) Min: 36.5 ?C (97.7 ?F) Max: 37.3 ?C (99.1 ?F) Pulse Av.5 Min: 89 Max: 108 Arterial BP 1 Min: 78/41 Max: 172/72 Cuff BP Min: 93/48 Max: 93/48 Pain Score: 0/10 Vital signs reviewed. BP 93/48 Pulse 100 Temp (Src) 98.8 (Axillary) Resp 27 Ht 5' 7.992 (1.73m) Wt 180 lb 12.4 oz (82.0kg) SpO2 99% BMI 27.49 kg/(m2). Temp (24hrs), Av.9 ?C (98.5 ?F), Min:36.5 ?C (97.7 ?F), Max:37.3 ?C (99.1 ?F) NET FLUID BALANCE Intake/Output Summary (Last 24 hours) at 01/29/18 1210 Last data filed at 01/29/18 1200 Gross per 24 hour Intake 1613.5 ml Output 2751 ml Net -1137.5 ml MEDICATIONS Current Facility-Administered Medications: potassium chloride 80-120 mEq oral liquid 80-120 mEq ORAL/FEEDING TUBE PRN potassium chloride iv piggyback 20 mEq in sterile water 100 mL 20 mEq INTRAVENOUS PRN magnesium sulfate in water 2 g in sterile water 50 ml 2 g INTRAVENOUS PRN sodium phosphate 45 mmol in NaCl 0.9% 250 mL 45 mmol INTRAVENOUS PRN calcium gluconate 4 g in NaCl 0.9% 250 mL 4 g INTRAVENOUS PRN fentaNYL 50 mcg/mL 25-50 mcg injection (SUBLIMAZE) 25-50 mcg INTRAVENOUS q 2 H PRN Parenteral Nutrition - Adult INTRAVENOUS ONCE TPN (1800 START) midodrine 10 mg tab(s) (PROAMATINE) 10 mg PEG q 8 H prismaSOL BGK 4 K / 2.5 mEq Ca/Liter 5,000 mL 5,000 mL HEMODIALYSIS continuous (no dispense) prismaSOL BGK 4 K / 2.5 mEq Ca/Liter 5,000 mL 5,000 mL HEMODIALYSIS continuous (no dispense) prismaSOL BGK 4 K / 2.5 mEq Ca/Liter 5,000 mL 5,000 mL HEMODIALYSIS continuous (no dispense) hydrocortisone sodium succinate (PF) 50 mg injection (Solu- CORTEF) 50 mg INTRAVENOUS q 8 H meropenem 500 mg in NaCl 0.9% 100 mL MB+ (MERREM) 500 mg INTRAVENOUS q 8 H ipratropium-albuterol 3 mL nebulizer solution (DUONEB) 3 mL INHALATION q 4 H budesonide 0.5 mg/2 mL 0.5 mg (PULMICORT) 0.5 mg INHALATION BID metoclopramide HCl 5 mg injection (REGLAN) 5 mg INTRAVENOUS q 6 H pantoprazole 40 mg injection (PROTONIX) 40 mg INTRAVENOUS BID AC (0600/1600) midazolam 100 mg in D5W 100 mL (VERSED) 1-10 mg/hr INTRAVENOUS CONTINUOUS docusate sodium oral liquid 100 mg/10 mL (DIOCTO,COLACE) 100 mg OROGASTRIC BID senna leaf extract 176 mg/5 mL 528 mg 15 mL OROGASTRIC BID carboxymethylcellulose sodium 1-2 Drop (CELLUVISC) 1-2 Drop BOTH EYES PRN polyvinyl alcohol-povidone 1.4-0.6 % 1 Drop (REFRESH) 1 Drop BOTH EYES QID PRN heparin 1,000 unit/mL 4,000 Units injection 4,000 Units INTRAVENOUS 3 Times weekly with dialysis heparin 5,000 Units injection 5,000 Units SUBCUTANEOUS q 12 H NaCl 0.9% 1,000 mL iv bolus 1,000 mL INTRAVENOUS PRN DIALYSIS dextrose 40 % 15 g 15 g ORAL PRN Or glucagon 1 mg injection (GLUCAGEN) 1 mg INTRAMUSCULAR PRN Or dextrose 50% in water 25 mL syringe 12.5 g INTRAVENOUS PRN magnesium sulfate 1 g in D5W 100 mL 1 g INTRAVENOUS PRN magnesium sulfate in water 2 g in sterile water 50 ml 2 g INTRAVENOUS PRN NORepinephrine 16 mg in D5W 250 mL (LEVOPHED) 0-30 mcg/min INTRAVENOUS CONTINUOUS Chlorhexidine Gluconate 0.12 % 15 mL (PERIDEX) 15 mL ORAL q 12 H Lines, Drains, and Airways Line Arterial Line 01/19/18 0840 Arterial Line Right Radial 10 days Central Line Quadruple Lumen 01/19/18 1056 Right Neck 10 days Dialysis / Apheresis Double Lumen 01/24/18 1400 Non-tunneled Right Groin 4 days Drain Drain/Tube 01/19/18 1015 Midline Abdomen 10 days GI Feed/Drain 01/27/18 Assessment Gastrostomy 2 days Airway Airway Tracheostomy 01/27/18 2 days PHYSICAL EXAM PERFORMED: HEENT: Hemorrhagic dried ulcers on lips. No oral drainage. Oral Mucosa: Dry mucous membranes Feeding Tube: Yes. G-tube and in the midline Eyes: PERRLA Neck: Unremarkable; No adenopathy or JVD Cardiovascular: Regular rhythm and NSR Respiratory: Clear to auscultation %FIO2 Min: 30 Max: 40 Abdomen: Soft, Firm, Distended and occasional BSs. Dark bloody-bilious drainage from G-tube. Tube feeds are off Extremities: Edema- Yes and 1+UE and trace-1+ at ankles and feet. Peripheral Pulses- Present all extremities Capillary Refill- less than 3 seconds Skin: Abnormalities- No Neurologic: Totally unresponsive. Respiratory/Nursing Documentation: O2 Therapy: Ventilator (01/29/18 1130) Invasive Ventilator Mode: Pressure Regulated Volume Control (01/29/18 1130) Set Ventilator Respiratory Rate (BPM): 18 (01/29/18 1130) Total Respiratory Rate (BPM): 26 (01/29/18 1130) Tidal Volume Set (mL): 480 (01/29/18 1130) Exhaled Tidal Volume (mL): 576 (01/29/18 1130) Minute Volume (L): 16.2 (01/29/18 1130) Peak Inspiratory Pressure (cm H2O): 10 (01/29/18 0804) PEEP/CPAP (cm H2O): 5 (01/29/18 1130) HEMODYNAMIC DATA: NUTRITION: Enteral Feeds: No NPO and tube feeds are off. DATA: Diagnostic tests reviewed for today's visit: Most recent labs and imaging results. LABS: Recent Labs 01/29/18 0645 01/28/18 0500 WBC 8.05 -- 7.62 RBC 2.78* -- 3.03* HB 7.9* -- 8.5* HCT 24.6* -- 27.0* MCV 88.5 -- 89.1 PLT 150 -- 131* GLUC 128* < > 171* BUN 42* < > 45* CREAT 1.36* < > 1.45* NA 141 < > 138 K 3.6 < > 4.1 CHLOR 107 < > 106 CO2 26 < > 26 TPROT -- -- 4.8* ALB 1.0* < > 1.0* CA 6.9* < > 7.1* ALKPHOS -- -- 150* TBILI -- -- 8.4* AST -- -- 86* ALT -- -- 58 MG 2.4 < > 2.3 < > = values in this interval not displayed. ABG: Recent Labs 01/28/18 1305 PH 7.459* PO2 153.3* PCO2 35.3* CULTURES: Sputum: Positive- 01/24: Many Enterobacter cloacae--MDR CXR FINDINGS: 01/29: FINDINGS: ? Tubes and lines: There is a tracheostomy tube which appears to be in adequate position. ?There is a right internal jugular venous catheter with its tip in the inferior aspect of the right atrium. ?There are postoperative changes involving the left humerus with the presence of an intramedullary jerry. ?No other tubes or lines are noted. ? Cardiomediastinal silhouette: The cardiac silhouette is within normal limits. ?The ?thoracic aorta is tortuous. ?The mediastinum is unremarkable. ?The pulmonary vascularity is within normal limits. ? Lungs and pleura: The costophrenic angles are clear bilaterally. ?No definite focal infiltrates are noted. ?There is no evidence of pneumothorax. ? IMPRESSION: ? 1. ?Tubes and lines as described above without evidence of pneumothorax. ? 2. ?The previously noted areas of atelectasis are decreased. ? 3. ?Otherwise no interval change. OTHER IMAGIN/26 KUB: RESULT: G-tube in the LEFT upper quadrant. ?Right femoral catheter in place. ? Multiple paraspinal surgical clips. ? Bowel loops are normal caliber. ?Degenerative changes in the spine. ?No pathologic ?calcifications. ? IMPRESSION: NO ACUTE ABNORMALITY Assessment/Plan PROBLEMS: ACTIVE PROBLEM LIST Gallstone Pancreatitis Ruptured Abdominal Aortic Aneurysm (Aaa) (Hcc) Dic (Disseminated Intravascular Coagulation) (Hcc) Hemorrhagic Shock (Hcc) Acute Respiratory Failure (Hcc) Cardiac Arrest ([facility]) Hypernatremia Hypokalemia Hypomagnesemia Hypophosphatemia Hyperchloremia Anoxic Encephalopathy (Hcc) Aaa (Abdominal Aortic Aneurysm, Ruptured) ([facility]) Obesity, Class I, Bmi 30-34.9 1. VDRF with marked tachypnea although Vt's >600ml and good oxygenation. Not obviously agitated as is unresponsive and HR is not up. 2. Bilateral infiltrates secondary to Enterobacter cloacae VAP--MDR on Merrem. May also have had an element of aspiration on 01/25. Fevers and WBC are down. 3. Anoxic/metabolic encephalopathy related to cardiac arrest on 01/12 with multiple episodes of hypoxia and hypotension. 4. Distributive shock--overall better. 5. Relative adrenal insufficiency--suspected. 6. Acute on chronic renal failure-on CVVH. 7. Severe anemia--7.9gm this AM 8. Thrombocytopenia--better at 150K 9. S/P PEG and G-tube on 01/27 10.Current bleed from G-tube but looks to be dark PLANS FOR TODAY: CRITICAL CARE PLAN: Antibiotics , Bronchodilators , Vasopressors, Ventilatory support , Weaning and Steroids Will try to change to CPAP/PSV and possible T-collar given above and improving CXR. Airway protected now with trach in place. Recheck Hgb today with bleeding noted. Continue TPN No change in Solucortef Continue ATBx for total 7 days. Hopefully can stay off pressors. This patient has a high probability of sudden, clinically significant deterioration, which requires the highest level of physician preparedness to intervene urgently. I managed/supervised life or organ supporting interventions that required frequent physician assessment. I devoted my full attention to the direct care of this patient for the amount of time indicated below. Time I spent with family or surrogate(s) is included only if the patient was incapable of providing the necessary information or participating in medical decision making. Time devoted to teaching is not included. Patient Updated Yes Family Updated No Discussed with Staff Yes Time spent providing critical care services: 40 minutes excluding procedures. SIGNATURE: Dorcas Palafox MD PATIENT NAME: Naveen Akins DATE: January 29, 2018 TIME: 12:10 PM PAGER/CONTACT #: [phone] RENAL PANEL Collected: 01/29/2018 Status: F Source: [facility] 11:40 AM HEALTH SYSTEM REPOSITORY TYPE CODE TESTS RESULT OUT OF REFERENCE UNITS RANGE LAB NA(LOINC) 136-145 mEq/L Sodium Blood 141 LAB K(LOINC) 3.5-5.1 mEq/L Potassium Blood 3.7 LAB CL(LOINC) 98-107 mEq/L Chloride Blood 106 LAB CO2(LOINC) 21-32 mEq/L CO2 Blood 26 LAB GLU(LOINC) 70-99 mg/dL Glucose High Blood 135 LAB BUN(LOINC) 7-18 mg/dL BUN High Blood 43 LAB CREA(LOINC 0.67-1.17 mg/dL ) High Creatinine Blood 1.37 LAB CA(LOINC) 8.5-10.1 mg/dL Low Calcium Blood 7.0 LAB ALB(LOINC) 3.4-5.0 g/dL Low Albumin Blood 1.1 LAB PHOS(LOINC 2.5-4.9 mg/dL ) Phosphorus Blood 4.2 Performed By: #### RENAL #### [place] [address] MAGNESIUM BLOOD Collected: 01/29/2018 Status: F Source: [facility] 11:40 AM HEALTH SYSTEM REPOSITORY TYPE CODE TESTS RESULT OUT OF REFERENCE UNITS RANGE LAB MAG(LOINC) 1.6-2.6 mg/dL Magnesium Blood 2.4 Performed By: #### MAG #### [place] [address] PROGRESS Observed: 01/29/2018 Status: COMPLETED Source: [place] 9:32 AM CLINIC OTHER CAMPUS REPOSITORY HNO ID: [id number] Author: Shen Lorenzo Service: Nephrology Author Type: Physician Type: Progress Notes Filed: 01/29/2018 9:35 AM Note Text: Nephrology Progress Note Following for TERENCE. Pt is trached. Remains on ventilator. Cannot do ROS. Current Inpatient Medications: Current Facility-Administered Medications Ordered in Epic: potassium chloride 80-120 mEq oral liquid 80-120 mEq ORAL/FEEDING TUBE PRN Maggi (Res) [place] potassium chloride iv piggyback 20 mEq in sterile water 100 mL 20 mEq INTRAVENOUS PRN Maggi (Res) [place] magnesium sulfate in water 2 g in sterile water 50 ml 2 g INTRAVENOUS PRN Maggi (Res) [place] sodium phosphate 45 mmol in NaCl 0.9% 250 mL 45 mmol INTRAVENOUS PRN Maggi (Res) [place] Last Rate: 41.67 mL/hr at 01/29/18 0342 45 mmol at 01/29/18 0342 calcium gluconate 4 g in NaCl 0.9% 250 mL 4 g INTRAVENOUS PRN Maggi (Res) [place] Parenteral Nutrition - Adult INTRAVENOUS ONCE TPN (1800 START) Perla Dudley Last Rate: 62.5 mL/hr at 01/28/18 1800 midodrine 10 mg tab(s) (PROAMATINE) 10 mg PEG q 8 H Dorcas Mckeon Decoy 10 mg at 01/29/18623 prismaSOL BGK 4 K / 2.5 mEq Ca/Liter 5,000 mL 5,000 mL HEMODIALYSIS continuous (no dispense) Venkat Paniagua 5,000 mL at 01/28/182047 prismaSOL BGK 4 K / 2.5 mEq Ca/Liter 5,000 mL 5,000 mL HEMODIALYSIS continuous (no dispense) Venkat Paniagua 5,000 mL at 01/28/182047 prismaSOL BGK 4 K / 2.5 mEq Ca/Liter 5,000 mL 5,000 mL HEMODIALYSIS continuous (no dispense) Venkat Paniagua 5,000 mL at 01/28/182047 hydrocortisone sodium succinate (PF) 50 mg injection (Solu- CORTEF) 50 mg INTRAVENOUS q 8 H Dorcas Mckeon Decoy 50 mg at 01/29/1824 meropenem 500 mg in NaCl 0.9% 100 mL MB+ (MERREM) 500 mg INTRAVENOUS q 8 H Dorcas Palafox Last Rate: 200 mL/hr at 01/29/1824 500 mg at 08/26/18 0624 ipratropium-albuterol 3 mL nebulizer solution (DUONEB) 3 mL INHALATION q 4 H Dorcas Mike Decoy 3 mL at 01/29/18 0802 budesonide 0.5 mg/2 mL 0.5 mg (PULMICORT) 0.5 mg INHALATION BID Dorcas Mike Decoy 0.5 mg at 01/29/18 0804 metoclopramide HCl 5 mg injection (REGLAN) 5 mg INTRAVENOUS q 6 H Dorcas Mike Decoy 5 mg at 01/29/18 0625 pantoprazole 40 mg injection (PROTONIX) 40 mg INTRAVENOUS BID AC () Jocelynn (Res) Robson 40 mg at 01/29/18 0624 midazolam 100 mg in D5W 100 mL (VERSED) 1-10 mg/hr INTRAVENOUS CONTINUOUS Dorcas Mike Decoy Stopped at 01/27/18 2300 docusate sodium oral liquid 100 mg/10 mL (DIOCTO,COLACE) 100 mg OROGASTRIC BID Dorcas Mike Decoy 100 mg at 01/29/18 0846 senna leaf extract 176 mg/5 mL 528 mg 15 mL OROGASTRIC BID Dionicio (Res) Stevens 528 mg at 01/29/18 0846 carboxymethylcellulose sodium 1-2 Drop (CELLUVISC) 1-2 Drop BOTH EYES PRN Venkat Paniagua 2 Drop at 01/26/18 1625 polyvinyl alcohol-povidone 1.4-0.6 % 1 Drop (REFRESH) 1 Drop BOTH EYES QID PRN Paulo ([employer] Super[employer]) [place] 1 Drop at 01/26/18 1724 heparin 1,000 unit/mL 4,000 Units injection 4,000 Units INTRAVENOUS 3 Times weekly with dialysis Troy Godoy 2,800 Units at 01/27/18 0834 heparin 5,000 Units injection 5,000 Units SUBCUTANEOUS q 12 H Mervin (Res) Wally 5,000 Units at 01/29/18 0846 NaCl 0.9% 1,000 mL iv bolus 1,000 mL INTRAVENOUS PRN DIALYSIS Shen Lorenzo 1,000 mL at 01/26/18 1116 dextrose 40 % 15 g 15 g ORAL PRN Jack Regula Or glucagon 1 mg injection (GLUCAGEN) 1 mg INTRAMUSCULAR PRN Jack Regula Or dextrose 50% in water 25 mL syringe 12.5 g INTRAVENOUS PRN Jack Regula magnesium sulfate 1 g in D5W 100 mL 1 g INTRAVENOUS PRN Emilie (Res) Cardella Last Rate: 100 mL/hr at 01/15/18 0016 1 g at 01/15/18 0016 magnesium sulfate in water 2 g in sterile water 50 ml 2 g INTRAVENOUS PRN Emilie (Res) Cardella Last Rate: 25 mL/hr at 01/13/18 1004 2 g at 01/13/18 1004 fentaNYL 20 mcg/mL iv infusion in NaCl 0.9% 100 mL 0-200 mcg/hr INTRAVENOUS CONTINUOUS Dorcas Mike Decoy Stopped at 01/28/18 2320 NORepinephrine 16 mg in D5W 250 mL (LEVOPHED) 0-30 mcg/min INTRAVENOUS CONTINUOUS Dionicio (Res) Stevens Last Rate: 4.69 mL/hr at 01/29/18 0847 5 mcg/min at 01/29/18 0847 Chlorhexidine Gluconate 0.12 % 15 mL (PERIDEX) 15 mL ORAL q 12 H Elder Yu) Kalee 15 mL at 01/29/18 0846 No current [facility]-ordered outpatient prescriptions on file. Vitals: BP (!) 93/48 Pulse 94 Temp 37.1 ?C (98.8 ?F) Resp 17 Ht 172.7 cm (5' 7.99) Wt 82 kg (180 lb 12.4 oz) SpO2 99% BMI 27.49 kg/m? BLOOD PRESSURE RANGE: Systolic (24hrs), Av , Min:93 , Max:130 ; Diastolic (24hrs), Av, Min:48, Max:61 24HR INTAKE/OUTPUT: Intake/Output Summary (Last 24 hours) at 01/29/18 0932 Last data filed at 01/29/18 0800 Gross per 24 hour Intake 1276.7 ml Output 2071 ml Net -794.3 ml Physical exam: Constitutional: NAD Skin: no rash, turgor wnl Heent: Trached Neck: no bruits or jvd noted Cardiovascular: S1, S2 normal without m/r/g Respiratory: Coarse breath sound bilaterally Abdomen: +bs, soft, nt, nd Ext: trace lower extremity edema Data: Labs: Recent Labs 01/29/18 0645 01/28/18 0500 01/27/18 0530 WBC 8.05 7.62 8.91 HB 7.9* 8.5* 9.4* HCT 24.6* 27.0* 29.4* MCV 88.5 89.1 89.1 PLT 150 131* 119* Recent Labs 01/29/18 0645 01/29/18 0054 01/28/18 1820 NA 141 141 140 K 3.6 3.9 4.0 CO2 26 25 27 MG 2.4 2.4 2.3 BUN 42* 46* 45* CREAT 1.36* 1.37* 1.42* CA 6.9* 7.1* 6.9* Assessment and Plan 1. Acute kidney injury on chronic kidney disease stage 3. Baseline SCr is 1.36 mg/dL on 11/14/17. CKD is likely due to nephrosclerosis related to PAD. TERENCE is 2/2 ischemic ATN from shock. Currently on 2 mcg/min of NE gtt. Pt may be making some urine (difficult to quantify since he is incontinent). Nevertheless, he is still dialysis dependent. CVVHDF is progressing well. Effluent dose is adequate. Current net fluid removal is 0. Anasarca has markedly improved in the past week. Plan to transition the pt to intermittent HD tomorrow. ? 2. Shock. Stable. Initially due to hemorrhagic shock-massive blood loss from ruptured AAA +/- adrenal insufficiency. Currently on low dose NE gtt. On hydrocortisone. ? 5. Ruptured AAA. s/p repair 01/12/18. Management as per vascular surgery. ? 6. Acute hypoxic respiratory failure. Ventilator dependent. Vent management as per pulmonary/CCM. Keep fluid from accumulating with CRRT UF. ? 7. Encephalopathy. Neuro evaluation in progress. Eventual MRI. ? d/w Dr. Paniagua Please do not hesitate to contact me at [phone] if there is any question or concern. Rosanna Talbert MD (Shen Lorenzo) ABDOMEN 1 VIEW Observed: 01/29/2018 Status: F Source: [facility] 9:09 AM HEALTH SYSTEM REPOSITORY Performed at [facility] APPROVED BY: GILBERT NAVARRO MD ABDOMEN, 1 VIEW. CLINICAL INFORMATION: Nausea and vomiting TECHNIQUE: Supine abdomen, 1 image(s) COMPARISON: 01/21/2018 RESULT: G-tube in the LEFT upper quadrant. Right femoral catheter in place. Multiple paraspinal surgical clips. Bowel loops are normal caliber. Degenerative changes in the spine. No pathologic calcifications. IMPRESSION: NO ACUTE ABNORMALITY PROGRESS Observed: 01/29/2018 Status: COMPLETED Source: [place] 9:06 AM [facility] REPOSITORY O ID: [id number] Author: Braxton Sloan MD Service: Vascular Surgery Author Type: Resident Type: Progress Notes Filed: 01/29/2018 9:12 AM Note Text: Attestation signed by Venkat Paniagua at 01/29/2018 1:10 PM Patient is now weaned off of pretty much all sedation and is only going to be receiving intermittent fentanyl at this point. He has become a little bit more tachypneic and tachycardic off sedation however I do feel that this is a natural response at the current time. Unfortunately he is no more responsive off of sedation and he has been. I still am only able to get him to respond to deep painful stimuli and this is with opening of the eyes and potentially some grimacing. There is no evidence of any response to vocal commands. It could well be that we are approaching a situation where this patient is in a persistent vegetative state. I have discussed these findings with the family. They wish to proceed with aggressive management currently and see if over the next several days there is any change in status. At this point in time they really do not wish change in CODE STATUS and do not at this point in time wish to do any type of withdrawal of therapy. Patient is having some issues with high residuals from his PEG tube and I feel that his tube feeding should be held given his emesis yesterday. Extensive discussion was again held with the family today regarding the patient's status. Vascular Surgery Progress Note SERVICE DATE: 01/29/2018 Subjective SUBJECTIVE: NAEON. Off fentanyl, off versed, off levo. Having large residuals and emesis with TF, currently clamped and held. Diet: DIET TUBE FEED - CONTIN (NO TRAY) Parenteral Nutrition - Adult Objective OBJECTIVE: Vitals: Temp (24hrs), Av.9 ?C (98.4 ?F), Min:36.3 ?C (97.3 ?F), Max:37.3 ?C (99.1 ?F) BP (!) 93/48 Pulse 94 Temp 37.1 ?C (98.8 ?F) Resp 17 Ht 172.7 cm (5' 7.99) Wt 82 kg (180 lb 12.4 oz) SpO2 99% BMI 27.49 kg/m? O2 Therapy: Ventilator IANDO: Date 01/28/18 07 - 01/29/18 0659 01/29/18 07 - 01/30/18 0659 Shift 5790-9835 8310-5496 5244-6535 24 Hour Total 2396-0105 8257-8619 5955-7143 24 Hour Total I N T A K E PO 20 20 40 Tube Feed Intake (GI Feed/Drain 01/27/18 Assessment Gastrostomy) 20 20 40 IV 133.2 124 257.2 187 187 IVPB 84 84 84 84 NS 0.9% 20 38 58 3 3 Fentanyl Volume 7.2 1.5 8.7 NORepinephrine Volume 6 0.5 6.5 Ampicillin/Sulbactam (Unasyn) IV 100 100 100 100 TPN/PPN 187.5 500 687.5 125 125 TPN 187.5 500 687.5 125 125 Irrigants 0 0 Irrigant/Flush Amount In (GI Feed/Drain 01/27/18 Assessment Gastrostomy) 0 0 Shift Total 20 340.7 624 984.7 312 312 O U T P U T Emesis 1 1 Emesis (ml) 1 1 Tubes 10 700 710 Drain/Tube Output (Drain/Tube 01/19/18 1015 Midline Abdomen) 10 10 Output (GI Feed/Drain 01/27/18 Assessment Gastrostomy) 700 700 # of BMs Stool Incontinence 2 x 2 x Number of BMs 3 x 3 x Dialysis 684 152 179 7309 49 49 Dialysis Output (Ultrafiltration) 684 910 410 2580 49 49 Shift Total 684 765 954 8781 49 49 Weight (kg) 82 82 82 82 82 82 82 82 MEDICATIONS Current Facility-Administered Medications: potassium chloride 80-120 mEq oral liquid 80-120 mEq ORAL/FEEDING TUBE PRN potassium chloride iv piggyback 20 mEq in sterile water 100 mL 20 mEq INTRAVENOUS PRN magnesium sulfate in water 2 g in sterile water 50 ml 2 g INTRAVENOUS PRN sodium phosphate 45 mmol in NaCl 0.9% 250 mL 45 mmol INTRAVENOUS PRN calcium gluconate 4 g in NaCl 0.9% 250 mL 4 g INTRAVENOUS PRN Parenteral Nutrition - Adult INTRAVENOUS ONCE TPN (1800 START) midodrine 10 mg tab(s) (PROAMATINE) 10 mg PEG q 8 H prismaSOL BGK 4 K / 2.5 mEq Ca/Liter 5,000 mL 5,000 mL HEMODIALYSIS continuous (no dispense) prismaSOL BGK 4 K / 2.5 mEq Ca/Liter 5,000 mL 5,000 mL HEMODIALYSIS continuous (no dispense) prismaSOL BGK 4 K / 2.5 mEq Ca/Liter 5,000 mL 5,000 mL HEMODIALYSIS continuous (no dispense) hydrocortisone sodium succinate (PF) 50 mg injection (Solu- CORTEF) 50 mg INTRAVENOUS q 8 H meropenem 500 mg in NaCl 0.9% 100 mL MB+ (MERREM) 500 mg INTRAVENOUS q 8 H ipratropium-albuterol 3 mL nebulizer solution (DUONEB) 3 mL INHALATION q 4 H budesonide 0.5 mg/2 mL 0.5 mg (PULMICORT) 0.5 mg INHALATION BID metoclopramide HCl 5 mg injection (REGLAN) 5 mg INTRAVENOUS q 6 H pantoprazole 40 mg injection (PROTONIX) 40 mg INTRAVENOUS BID AC (0600/1600) midazolam 100 mg in D5W 100 mL (VERSED) 1-10 mg/hr INTRAVENOUS CONTINUOUS docusate sodium oral liquid 100 mg/10 mL (DIOCTO,COLACE) 100 mg OROGASTRIC BID senna leaf extract 176 mg/5 mL 528 mg 15 mL OROGASTRIC BID carboxymethylcellulose sodium 1-2 Drop (CELLUVISC) 1-2 Drop BOTH EYES PRN polyvinyl alcohol-povidone 1.4-0.6 % 1 Drop (REFRESH) 1 Drop BOTH EYES QID PRN heparin 1,000 unit/mL 4,000 Units injection 4,000 Units INTRAVENOUS 3 Times weekly with dialysis heparin 5,000 Units injection 5,000 Units SUBCUTANEOUS q 12 H NaCl 0.9% 1,000 mL iv bolus 1,000 mL INTRAVENOUS PRN DIALYSIS dextrose 40 % 15 g 15 g ORAL PRN Or glucagon 1 mg injection (GLUCAGEN) 1 mg INTRAMUSCULAR PRN Or dextrose 50% in water 25 mL syringe 12.5 g INTRAVENOUS PRN magnesium sulfate 1 g in D5W 100 mL 1 g INTRAVENOUS PRN magnesium sulfate in water 2 g in sterile water 50 ml 2 g INTRAVENOUS PRN fentaNYL 20 mcg/mL iv infusion in NaCl 0.9% 100 mL 0-200 mcg/hr INTRAVENOUS CONTINUOUS NORepinephrine 16 mg in D5W 250 mL (LEVOPHED) 0-30 mcg/min INTRAVENOUS CONTINUOUS Chlorhexidine Gluconate 0.12 % 15 mL (PERIDEX) 15 mL ORAL q 12 H Labs: Recent Labs 01/29/18 0645 01/29/18 0054 01/28/18 1305 01/28/18 0500 NA 141 141 < > -- < > 138 K 3.6 3.9 < > -- < > 4.1 CHLOR 107 107 < > -- < > 106 CO2 26 25 < > -- < > 26 BUN 42* 46* < > -- < > 45* CREAT 1.36* 1.37* < > -- < > 1.45* GLUC 128* 149* < > -- < > 171* CA 6.9* 7.1* < > -- < > 7.1* MG 2.4 2.4 < > -- < > 2.3 P 3.6 3.6 1.9* < > -- < > 2.7 ALB 1.0* 1.1* < > -- < > 1.0* AST -- -- -- -- -- 86* ALT -- -- -- -- -- 58 ALKPHOS -- -- -- -- -- 150* TBILI -- -- -- -- -- 8.4* WBC 8.05 -- -- -- -- 7.62 HB 7.9* -- -- -- -- 8.5* HCT 24.6* -- -- -- -- 27.0* PLT 150 -- -- -- -- 131* PH -- -- -- 7.459* -- -- PCO2 -- -- -- 35.3* -- -- PO2 -- -- -- 153.3* -- -- BE -- -- -- 0.8 -- -- < > = values in this interval not displayed. Exam: GENERAL: No distress NEURO: Does not respond to name or commands. Pupils react to light. HEENT: normocephalic, atraumatic, icterus present but improving LUNGS: Unlabored breathing, RR in 40s, O2 Therapy: Ventilator CARDIAC: intermittent tachycardia overnight and on exam ABDOMEN: Soft, non-tender, non-distended, no warmth or erythema, Vac and retention sutures in place EXTREMITIES: No deformities SKIN: Jaundice present and improving, No rashes or lesions ASSESSMENT AND PLAN: Active Hospital Problems Diagnosis Date Noted - Ruptured abdominal aortic aneurysm (AAA) ([facility]) 01/12/2018 - Obesity, Class I, BMI 30-34.9 01/16/2018 - Anoxic encephalopathy ([facility]) 01/13/2018 Assessment AND Plan Note: S/p AAA repair and cardiac arrest ., anoxic encephalopathy Lack of I improvement Is concerning suspect he may have suffered anoxic encephalopathy exam is limited. Need to continue supportive care Likely he may need dependant care MRI brain will Help to add further prognostic value - DIC (disseminated intravascular coagulation) ([facility]) 01/12/2018 - Hemorrhagic shock ([facility]) 01/12/2018 - Acute respiratory failure ([facility]) 01/12/2018 - Cardiac arrest ([facility]) 01/12/2018 - Hypernatremia 01/12/2018 - Hypokalemia 01/12/2018 - Hypomagnesemia 01/12/2018 - Hypophosphatemia 01/12/2018 - Hyperchloremia 01/12/2018 - AAA (abdominal aortic aneurysm, ruptured) ([facility]) 01/12/2018 Overview Note: Added automatically from request for surgery [id number] 77 year old male with Ruptured AAA s/p Emergent Repair, takeback washout, repair of serosal tears x2, on 01/12, hemorrhagic shock, acute resp failure with pulm edema, TERENCE, SVT, s/p Third Look Laparotomy and?washout on 01/14, fourth look, washout, vac change on 01/16, Partial fascial closure on 01/19 ? Interval: - POD2 trach/peg, both functioning well. - NPO/TPN. - TFs clamped and held due to emesis and high residuals. KUB ordered and pending. - off levo - off versed and fentanyl - CXR stable today (01/29), improved inspiration Stable since yesterday: - Vent mgmt per MICU - Acute blood loss and dilutional anemia and thrombocytopenia - monitor, stable - TERENCE -->?CVVHD per?Nephro, diurese as tolerates - SpCx pending, Smear +GNB -->?meropenum started post-trach/peg - cont scrotal support - Cont WV --> wound care following for VAC changes - Hyperbilirubinemia and Transaminitis -->?trending down, Abd US WNL - Solucortef 50mg q8h per MICU - Leukocytosis - reactive, steroid related, and possibly 2/2 PNA ?? Assessment and plan discussed with attending: Dr. Paniagua SIGNATURE: Braxton Sloan MD PATIENT NAME: Naveen Akins DATE: January 29, 2018 TIME: 9:06 AM Pager: [phone] HEMOGRAM/DIFF Collected: 01/29/2018 Status: F Source: [facility] 6:45 AM HEALTH SYSTEM REPOSITORY TYPE CODE TESTS RESULT OUT OF REFERENCE UNITS RANGE LAB WBC(LOINC) 4.23-9.07 thou/cmm WBC 8.05 LAB RBC(LOINC) 4.63-6.08 mil/cmm Low RBC 2.78 LAB HGB(LOINC) 13.7-17.5 g/dL Low Hgb 7.9 LAB HCT(LOINC) 40.1-51.0 % Low Hct 24.6 LAB MCV(LOINC) 83.2-95.6 fl MCV 88.5 LAB MCH(LOINC) 25.7-32.2 pg MCH 28.4 LAB MCHC(LOINC 32.3-36.5 % ) Low MCHC 32.1 LAB RDW(LOINC) 11.6-14.4 % RDW High 20.6 LAB RDWSD(LOIN 36.1-45.8 fl C) RDW SD High 65.2 LAB PLT(LOINC) 141-365 thou/cmm Platelet 150 LAB MPV(LOINC) 8.7-12.0 fl MPV High 12.7 LAB SEG(LOINC) % Seg Neutrophil 77.4 LAB IGRE(LOINC % ) Immature Grans 5.30 LAB LYMPH(LOIN % C) Lymphocyte 9.4 LAB MNO(LOINC) % Monocyte 7.6 LAB EOSIN(LOIN % C) Eosinophil 0.2 LAB BASO(LOINC % ) Basophil 0.1 LAB SEGN(LOINC 1.78-5.38 thou/cmm ) Abs. High Neut (ANC) 6.23 LAB IGAB(LOINC 0.00-0.05 thou/cmm ) Abs High Immature Grans 0.43 LAB LYMN(LOINC 0.84-2.85 thou/cmm ) Low Abs. Lymph 0.76 LAB MONON(LOIN 0.30-0.82 thou/cmm C) Abs. Rincon 0.61 LAB EOSN(LOINC 0.04-0.54 thou/cmm ) Low Abs. Eosin 0.02 LAB BASON(LOIN 0.01-0.08 thou/cmm C) Abs. Baso 0.01 Result Comment: Smear scanned; tech agrees with automated differential Performed By: #### [id number] #### [facility] [address] [place] [id number] IONIZED CALCIUM Collected: 01/29/2018 Status: F Source: [address] REPOSITORY TYPE CODE TESTS RESULT OUT OF REFERENCE UNITS RANGE LAB CAION(LOINC 4.43-4.93 mg/dL ) Low Ionized 3.96 Calcium LAB PHCAI(LOINC 7.320-7.420 ) pH High 7.519 LAB CAPH(LOINC) 4.36-4.73 mg/dL Low Ionized 4.21 Ca,PH7.4 Performed By: #### IONCA #### [facility] [address] [place], [place] [address] RENAL PANEL Collected: 01/29/2018 Status: F Source: [address] SYSTEM REPOSITORY TYPE CODE TESTS RESULT OUT OF REFERENCE UNITS RANGE LAB NA(LOINC) 136-145 mEq/L Sodium Blood 141 LAB K(LOINC) 3.5-5.1 mEq/L Potassium Blood 3.6 LAB CL(LOINC) 98-107 mEq/L Chloride Blood 107 LAB CO2(LOINC) 21-32 mEq/L CO2 Blood 26 LAB GLU(LOINC) 70-99 mg/dL Glucose High Blood 128 LAB BUN(LOINC) 7-18 mg/dL BUN High Blood 42 LAB CREA(LOINC 0.67-1.17 mg/dL ) High Creatinine Blood 1.36 LAB CA(LOINC) 8.5-10.1 mg/dL Low Calcium Blood 6.9 LAB PHOS(LOINC 2.5-4.9 mg/dL ) Phosphorus Blood 3.6 LAB ALB(LOINC) 3.4-5.0 g/dL Low Albumin Blood 1.0 Performed By: #### RENAL #### [facility] [address] [place] [address] MAGNESIUM BLOOD Collected: 01/29/2018 Status: F Source: [facility] 6:45 AM HEALTH SYSTEM REPOSITORY TYPE CODE TESTS RESULT OUT OF REFERENCE UNITS RANGE LAB MAG(LOINC) 1.6-2.6 mg/dL Magnesium Blood 2.4 Performed By: #### MAG #### [facility] [address] [place] [address] PHOSPHORUS BLOOD Collected: 01/29/2018 Status: F Source: [facility] 6:45 AM HEALTH SYSTEM REPOSITORY TYPE CODE TESTS RESULT OUT OF REFERENCE UNITS RANGE LAB PHOS(LOINC 2.5-4.9 mg/dL ) Phosphorus Blood 3.6 Performed By: #### PHOS #### [place] [address] CHEST 1 VIEW Observed: 01/29/2018 Status: F Source: [facility] 6:16 AM HEALTH SYSTEM REPOSITORY Performed at [facility] APPROVED BY: Bernardino Lewis MD EXAM TITLE: AP SUPINE PORTABLE CHEST DATE: 01/29/2018 06:11 COMPARISON: 01/28/2018, 01/27/2018, 01/26/2018 and 01/25/2018 CLINICAL INDICATION/HISTORY: Evaluate tubes and lines. TECHNIQUE: A single portable supine view of the chest is presented. FINDINGS: Tubes and lines: There is a tracheostomy tube which appears to be in adequate position. There is a right internal jugular venous catheter with its tip in the inferior aspect of the right atrium. There are postoperative changes involving the left humerus with the presence of an intramedullary jerry. No other tubes or lines are noted. Cardiomediastinal silhouette: The cardiac silhouette is within normal limits. The thoracic aorta is tortuous. The mediastinum is unremarkable. The pulmonary vascularity is within normal limits. Lungs and pleura: The costophrenic angles are clear bilaterally. No definite focal infiltrates are noted. There is no evidence of pneumothorax. IMPRESSION: 1. Tubes and lines as described above without evidence of pneumothorax. 2. The previously noted areas of atelectasis are decreased. 3. Otherwise no interval change. NURSING PROG Observed: 01/29/2018 Status: COMPLETED Source: [place] 1:36 AM CLINIC OTHER CAMPUS REPOSITORY HNO ID: [id number] Author: Kannan (Rn) MAGALY Montoya Service: Nursing Author Type: Registered Nurse Type: Nursing Progress Note Filed: 01/29/2018 1:38 AM Note Text: Dr. Parker Sesay spoken to regarding patient having emesis, larger gastric residual. Noted that Tube feed has been off since initial assessment at 19:30. Peg tube clamped per Dr. Sesay's direction. RENAL PANEL Collected: 01/29/2018 Status: F Source: [facility] 12:54 AM HEALTH SYSTEM REPOSITORY TYPE CODE TESTS RESULT OUT OF REFERENCE UNITS RANGE LAB NA(LOINC) 136-145 mEq/L Sodium Blood 141 LAB K(LOINC) 3.5-5.1 mEq/L Potassium Blood 3.9 LAB CL(LOINC) 98-107 mEq/L Chloride Blood 107 LAB CO2(LOINC) 21-32 mEq/L CO2 Blood 25 LAB GLU(LOINC) 70-99 mg/dL Glucose High Blood 149 LAB BUN(LOINC) 7-18 mg/dL BUN High Blood 46 LAB CREA(LOINC 0.67-1.17 mg/dL ) High Creatinine Blood 1.37 LAB CA(LOINC) 8.5-10.1 mg/dL Low Calcium Blood 7.1 LAB ALB(LOINC) 3.4-5.0 g/dL Low Albumin Blood 1.1 LAB PHOS(LOINC 2.5-4.9 mg/dL ) Low alert Phosphorus Blood 1.9 Result Comment: RESULT RECHECKED Performed By: #### RENAL #### [facility] [address] [place] [address] MAGNESIUM BLOOD Collected: 01/29/2018 Status: F Source: [facility] 12:54 AM HEALTH SYSTEM REPOSITORY TYPE CODE TESTS RESULT OUT OF REFERENCE UNITS RANGE LAB MAG(LOINC) 1.6-2.6 mg/dL Magnesium Blood 2.4 Performed By: #### MAG #### [facility] [address] [place] [address] RENAL PANEL Collected: 01/28/2018 Status: F Source: [facility] 6:20 PM HEALTH SYSTEM REPOSITORY TYPE CODE TESTS RESULT OUT OF REFERENCE UNITS RANGE LAB NA(LOINC) 136-145 mEq/L Sodium Blood 140 LAB K(LOINC) 3.5-5.1 mEq/L Potassium Blood 4.0 LAB CL(LOINC) 98-107 mEq/L Chloride Blood 106 LAB CO2(LOINC) 21-32 mEq/L CO2 Blood 27 LAB GLU(LOINC) 70-99 mg/dL Glucose High Blood 165 LAB BUN(LOINC) 7-18 mg/dL BUN High Blood 45 LAB CREA(LOINC 0.67-1.17 mg/dL ) High Creatinine Blood 1.42 LAB CA(LOINC) 8.5-10.1 mg/dL Low Calcium Blood 6.9 LAB PHOS(LOINC 2.5-4.9 mg/dL ) Low Phosphorus Blood 2.2 LAB ALB(LOINC) 3.4-5.0 g/dL Low Albumin Blood 1.0 Performed By: #### RENAL #### [place] [address] MAGNESIUM BLOOD Collected: 01/28/2018 Status: F Source: [facility] 6:20 PM HEALTH SYSTEM REPOSITORY TYPE CODE TESTS RESULT OUT OF REFERENCE UNITS RANGE LAB MAG(LOINC) 1.6-2.6 mg/dL Magnesium Blood 2.3 Performed By: #### MAG #### [place] [address] NURSING PROG Observed: 01/28/2018 Status: COMPLETED Source: [place] 6:04 PM CLINIC OTHER CAMPUS REPOSITORY HNO ID: [id number] Author: Araceli (Rn) MAGALY Elam Service: Dialysis Author Type: Registered Nurse Type: Nursing Progress Note Filed: 01/28/2018 6:06 PM Note Text: CRRT RESTARTED AFTER RISING TMP OF 370. ON M100 BFR 200 ALL PUMPS AT 800 PRISMASOL BAGS 4K 2.5CA HEMOSAFE DEVICE ON X2 WITH LINES REVERSED. UF SET AT 100 FOR NO FLUID REMOVAL. REPORT TO ARIADNA GARDNER BLOOD GAS ARTERIAL Collected: 01/28/2018 Status: F Source: [facility] 1:05 PM HEALTH SYSTEM REPOSITORY TYPE CODE TESTS RESULT OUT OF REFERENCE UNITS RANGE LAB TEMPA(LOIN C) Temperature 37.0 LAB PH(LOINC) 7.350-7.450 pH Arterial High 7.459 LAB PCO2(LOINC 36.0-46.0 mm Hg ) Low PCO2 Arterial 35.3 LAB PO2(LOINC) 85.0-96.0 mm Hg PO2 High Arterial 153.3 LAB HCO3A(LOIN 22.0-26.0 mEq/L C) HCO3- 24.5 LAB O2%A(LOINC 95.0-98.0 % ) O2% Sat High Arterial 98.9 LAB BASEX(LOIN -2.5 to 2.5 mEq/L C) Base Excess 0.8 LAB FIO2(LOINC % ) FIO2 40 Performed By: #### ABG #### [place] [address] CASE MANAGEM Observed: 01/28/2018 Status: COMPLETED Source: [place] 1:04 PM CLINIC OTHER CAMPUS REPOSITORY HNO ID: [id number] Author: Alvina (Rn) MAGALY Noonan Service: Care Management Author Type: Registered Nurse Type: Care Mgt Progress Note Filed: 01/28/2018 1:07 PM Note Text: CARE MANAGEMENT PROGRESS NOTE SERVICE DATE: 01/28/2018 SERVICE TIME: 1:04 PM LOS: 16 days [facility]position Plan[facility] Can accept anytime Transportation: ill need cot transport arranged No discharge today. SIGNATURE: Alvina Noonan RN PATIENT NAME: Naveen Akins DATE: January 28, 2018 TIME: 1:04 PM PAGER/CONTACT #: [phone] RENAL PANEL Collected: 01/28/2018 Status: F Source: [facility] 12:50 PM HEALTH SYSTEM REPOSITORY TYPE CODE TESTS RESULT OUT OF REFERENCE UNITS RANGE LAB NA(LOINC) 136-145 mEq/L Sodium Blood 139 LAB K(LOINC) 3.5-5.1 mEq/L Potassium Blood 4.1 LAB CL(LOINC) 98-107 mEq/L Chloride Blood 106 LAB CO2(LOINC) 21-32 mEq/L CO2 Blood 25 LAB GLU(LOINC) 70-99 mg/dL Glucose High Blood 194 LAB BUN(LOINC) 7-18 mg/dL BUN High Blood 43 LAB CREA(LOINC 0.67-1.17 mg/dL ) High Creatinine Blood 1.39 LAB CA(LOINC) 8.5-10.1 mg/dL Low Calcium Blood 7.0 LAB PHOS(LOINC 2.5-4.9 mg/dL ) Low Phosphorus Blood 2.3 LAB ALB(LOINC) 3.4-5.0 g/dL Low Albumin Blood 1.0 Performed By: #### RENAL #### [facility] [address] [place] [address] MAGNESIUM BLOOD Collected: 01/28/2018 Status: F Source: [facility] 12:50 PM HEALTH SYSTEM REPOSITORY TYPE CODE TESTS RESULT OUT OF REFERENCE UNITS RANGE LAB MAG(LOINC) 1.6-2.6 mg/dL Magnesium Blood 2.3 Performed By: #### MAG #### [place] [address] PROGRESS Observed: 01/28/2018 Status: COMPLETED Source: [place] 11:54 AM CLINIC OTHER CAMPUS REPOSITORY O ID: [id number] Author: Dorcas Palafox Service: Critical Care Author Type: Physician Type: Progress Notes Filed: 01/28/2018 12:22 PM Note Text: MICU - PROGRESS NOTE SERVICE DATE: 01/28/2018 SERVICE TIME: 11:54 AM Admission Date: 01/12/2018 AGE: [id number] year old LOS: 16 days Subjective REASON FOR ICU ADMISSION: Pneumonia, Renal Failure, Respiratory Failure, Sepsis, S/P Surgery and Encephalopathy post-cardiac arrest. S/P Trach/PEG on 01/27. Weakly opens eyes to name. Does not follow commands. Versed at 1mg/hr. Fentanyl 100mcg/hr. Levophed down to 6mcg/min. VENT: PRVC-18 Vt--480ml P-5 FiO2 40% Ve-7-8l/min SaO2 99%. Secretions copious thick light-yellow blood-tinged. Objective VITAL SIGNS (last 24hrs min/max): Temp Av.6 ?C (97.9 ?F) Min: 36.2 ?C (97.2 ?F) Max: 37 ?C (98.6 ?F) Pulse Av.1 Min: 87 Max: 109 Arterial BP 1 Min: 90/48 Max: 172/81 Cuff BP Min: 82/45 Max: 130/61 Pain Score: 0/10 Vital signs reviewed. BP 130/61 Pulse 102 Temp (Src) 97.2 (Axillary) Resp 18 Ht 5' 7.992 (1.73m) Wt 180 lb 12.4 oz (82.0kg) SpO2 99% BMI 27.49 kg/(m2). Temp (24hrs), Av.6 ?C (97.9 ?F), Min:36.2 ?C (97.2 ?F), Max:37 ?C (98.6 ?F) NET FLUID BALANCE Intake/Output Summary (Last 24 hours) at 01/28/18 1154 Last data filed at 01/28/18 1100 Gross per 24 hour Intake 2451.4 ml Output 1843 ml Net 608.4 ml MEDICATIONS Current Facility-Administered Medications: Parenteral Nutrition - Adult INTRAVENOUS ONCE TPN (1800 START) hydrocortisone sodium succinate (PF) 50 mg injection (Solu- CORTEF) 50 mg INTRAVENOUS q 8 H meropenem 500 mg in NaCl 0.9% 100 mL MB+ (MERREM) 500 mg INTRAVENOUS q 8 H ipratropium-albuterol 3 mL nebulizer solution (DUONEB) 3 mL INHALATION q 4 H budesonide 0.5 mg/2 mL 0.5 mg (PULMICORT) 0.5 mg INHALATION BID metoclopramide HCl 5 mg injection (REGLAN) 5 mg INTRAVENOUS q 6 H pantoprazole 40 mg injection (PROTONIX) 40 mg INTRAVENOUS BID AC (0600/1600) midazolam 100 mg in D5W 100 mL (VERSED) 1-10 mg/hr INTRAVENOUS CONTINUOUS docusate sodium oral liquid 100 mg/10 mL (DIOCTO,COLACE) 100 mg OROGASTRIC BID senna leaf extract 176 mg/5 mL 528 mg 15 mL OROGASTRIC BID carboxymethylcellulose sodium 1-2 Drop (CELLUVISC) 1-2 Drop BOTH EYES PRN polyvinyl alcohol-povidone 1.4-0.6 % 1 Drop (REFRESH) 1 Drop BOTH EYES QID PRN heparin 1,000 unit/mL 4,000 Units injection 4,000 Units INTRAVENOUS 3 Times weekly with dialysis heparin 5,000 Units injection 5,000 Units SUBCUTANEOUS q 12 H NaCl 0.9% 1,000 mL iv bolus 1,000 mL INTRAVENOUS PRN DIALYSIS prismaSOL BGK 4 K / 2.5 mEq Ca/Liter 5,000 mL 5,000 mL HEMODIALYSIS continuous (no dispense) prismaSOL BGK 4 K / 2.5 mEq Ca/Liter 5,000 mL 5,000 mL HEMODIALYSIS continuous (no dispense) prismaSOL BGK 4 K / 2.5 mEq Ca/Liter 5,000 mL 5,000 mL HEMODIALYSIS continuous (no dispense) dextrose 40 % 15 g 15 g ORAL PRN Or glucagon 1 mg injection (GLUCAGEN) 1 mg INTRAMUSCULAR PRN Or dextrose 50% in water 25 mL syringe 12.5 g INTRAVENOUS PRN magnesium sulfate 1 g in D5W 100 mL 1 g INTRAVENOUS PRN magnesium sulfate in water 2 g in sterile water 50 ml 2 g INTRAVENOUS PRN fentaNYL 20 mcg/mL iv infusion in NaCl 0.9% 100 mL 0-200 mcg/hr INTRAVENOUS CONTINUOUS NORepinephrine 16 mg in D5W 250 mL (LEVOPHED) 0-30 mcg/min INTRAVENOUS CONTINUOUS Chlorhexidine Gluconate 0.12 % 15 mL (PERIDEX) 15 mL ORAL q 12 H Lines, Drains, and Airways Line Arterial Line 01/19/18 0840 Arterial Line Right Radial 9 days Central Line Quadruple Lumen 01/19/18 1056 Right Neck 9 days Dialysis / Apheresis Double Lumen 01/24/18 1400 Non-tunneled Right Groin 3 days Drain Drain/Tube 01/19/18 1015 Midline Abdomen 9 days GI Feed/Drain 01/27/18 Assessment Gastrostomy 1 day Airway Airway Tracheostomy 01/27/18 1 day PHYSICAL EXAM PERFORMED: HEENT: Dried hemorrhagic ulcers on lips. Oral Mucosa: Dry mucous membranes Feeding Tube: +PEG Eyes: PERRLA and Scleradema Neck: Unremarkable; No adenopathy or JVD and #[id number] trach tube in place. Cardiovascular: Regular rhythm and NSR on monitor. Respiratory: Inspiratory rhonchi bilaterally %FIO2 Min: 40 Max: 40 Abdomen: Soft, Nontender and mildly protuberant. Occasional BSs. Extremities: Edema- Yes and 1+ pitting UE edema and trace LE pitting edema. Peripheral Pulses- Present all extremities Capillary Refill- less than 3 seconds Skin: Abnormalities- No Neurologic: Sedated and obtunded. Respiratory/Nursing Documentation: O2 Therapy: Ventilator (01/28/18 1100) Invasive Ventilator Mode: Pressure Regulated Volume Control (01/28/18912) Set Ventilator Respiratory Rate (BPM): 18 (01/28/18912) Total Respiratory Rate (BPM): 30 (01/28/18912) Tidal Volume Set (mL): 480 (01/28/18912) Exhaled Tidal Volume (mL): 599 (01/28/18912) Minute Volume (L): 19.4 (01/28/18912) Peak Inspiratory Pressure (cm H2O): 10 (01/28/18912) PEEP/CPAP (cm H2O): 5 (01/28/18912) HEMODYNAMIC DATA: NUTRITION: Enteral Feeds: Yes Tube Feeds Novosource Renal and at 20ml/hr DATA: Diagnostic tests reviewed for today's visit: Most recent labs and imaging results. LABS: Recent Labs 01/28/18 0500 WBC 7.62 RBC 3.03* HB 8.5* HCT 27.0* MCV 89.1 PLT 131* GLUC 171* BUN 45* CREAT 1.45* NA 138 K 4.1 CHLOR 106 CO2 26 TPROT 4.8* ALB 1.0* CA 7.1* ALKPHOS 150* TBILI 8.4* AST 86* ALT 58 MG 2.3 ABG: Recent Labs 01/25/18 1600 PH 7.478* PO2 79.2* PCO2 28.3* CULTURES: Sputum: Positive- MDR Enterobacter cloacae CXR FINDINGS: CXR personally viewed and interpreted by ICU staff Physician and 01/28: Patchy left-midlung and medial RLL infiltrates with faint RUL interstitial infiltrate. Assessment/Plan PROBLEMS: ACTIVE PROBLEM LIST Gallstone Pancreatitis Ruptured Abdominal Aortic Aneurysm (Aaa) (Hcc) Dic (Disseminated Intravascular Coagulation) (Hcc) Hemorrhagic Shock (Hcc) Acute Respiratory Failure (Hcc) Cardiac Arrest (Hcc) Hypernatremia Hypokalemia Hypomagnesemia Hypophosphatemia Hyperchloremia Anoxic Encephalopathy (Hcc) Aaa (Abdominal Aortic Aneurysm, Ruptured) (Hcc) Obesity, Class I, Bmi 30-34.9 1. Hypoxic VDRF with need for airway protection following cardiac arrest on 01/12 2. Enterobacter cloacae +/- hospital-acquired aspiration pneumonia with bilateral infiltrates new this week. 3. Metabolic and anoxic encephalopathy--some responsiveness today. 4. Acute renal failure on CVVH 5. Shock--?Septic ?Relative adrenal insufficiency--better today on increased Solucortef. 6. S/P ruptured AAA on 01/12 with multiple exploratory laps for repair and washouts 7. S/P Trach/PEG insertions on 01/27 8. Thrombocytopenia--a little better today-131K 9. Moderate anemia--8.5gm PLANS FOR TODAY: CRITICAL CARE PLAN: Antibiotics , Bronchodilators , Dialysis, Vasopressors, Tube feedings, Ventilatory support and Steroids No change in Merrem dosing. Check ABG today. Add Midodrine to try and help with Levophed weaning (improving) Increase tube feeds as tolerated. Would like to get off of TPN soon? Will need LTAC transfer likely. No change in Solucortef today. This patient has a high probability of sudden, clinically significant deterioration, which requires the highest level of physician preparedness to intervene urgently. I managed/supervised life or organ supporting interventions that required frequent physician assessment. I devoted my full attention to the direct care of this patient for the amount of time indicated below. Time I spent with family or surrogate(s) is included only if the patient was incapable of providing the necessary information or participating in medical decision making. Time devoted to teaching is not included. Patient Updated Yes Family Updated No Discussed with Staff Yes Time spent providing critical care services: 40 minutes excluding procedures. SIGNATURE: Dorcas Palafox MD PATIENT NAME: Naveen Akins DATE: January 28, 2018 TIME: 11:54 AM PAGER/CONTACT #: [phone] PROGRESS Observed: 01/28/2018 Status: COMPLETED Source: [place] 10:34 AM CLINIC OTHER CAMPUS REPOSITORY O ID: [id number] Author: Adriane Carvalho Service: Critical Care Author Type: Physician Type: Progress Notes Filed: 01/28/2018 10:41 AM Note Text: Naveen Akins [id number] NEURO ICU - CONSULT PROGRESS NOTE SERVICE DATE: 01/28/2018 s/p AAA repair , cardiac arrest and MOSD Objective DETAILED REVIEW VITAL SIGNS (last 24hrs min/max): Temp Av.6 ?C (97.9 ?F) Min: 36.2 ?C (97.2 ?F) Max: 37 ?C (98.6 ?F) Pulse Av.3 Min: 87 Max: 109 Cuff BP Min: 82/45 Max: 110/53 Resp Av.6 Min: 13 Max: 28 SpO2 Av.1 % Min: 95 % Max: 100 % CVP Av.2 Min: -3 Max: 4 No Data RecordedNo Data RecordedNo Data RecordedNo Data Recorded Pain Score: 0/10 INTAKE/OUTPUT: Intake/Output Summary (Last 24 hours) at 01/28/18 1034 Last data filed at 01/28/18 1000 Gross per 24 hour Intake 2771.3 ml Output 1748 ml Net 1023.3 ml PHYSICAL EXAM AND PERTINENT DATA Neuro: eye opeiong, no tracking, no command following., No motor response to deep stimuli. ADAM. + corneal. + cough, no Blink to threat CV: S1-s2 present Pulm: AEBE, rales Mechanical Ventilation: VENTILATOR INFORMATION: Settings: Invasive Ventilator Mode: Pressure Regulated Volume Control (01/28/18 0913) %FIO2: 40 Set Ventilator Respiratory Rate (BPM): 18 Tidal Volume Set (mL): 480 PEEP/CPAP (cm H2O): 5 Inspiratory Pressure Set (cm H2O): 0.9 Patient Data: Inspiratory:Expiratory Ratio: 1:1.3 Peak Inspiratory Pressure (cm H2O): 10 Plateau Pressure (cm H2O): 4 Weaning Data: Spontaneous Respiratory Rate (BPM): 12 GI/: Soft, ND , + BS Skin/Extremities: Edema- Yes Peripheral pulses- Present all extremities Wounds/Drsgs- Yes Breakdown- Yes Current Facility-Administered Medications: Parenteral Nutrition - Adult INTRAVENOUS ONCE TPN (1800 START) hydrocortisone sodium succinate (PF) 50 mg injection (Solu- CORTEF) 50 mg INTRAVENOUS q 8 H meropenem 500 mg in NaCl 0.9% 100 mL MB+ (MERREM) 500 mg INTRAVENOUS q 8 H ipratropium-albuterol 3 mL nebulizer solution (DUONEB) 3 mL INHALATION q 4 H budesonide 0.5 mg/2 mL 0.5 mg (PULMICORT) 0.5 mg INHALATION BID metoclopramide HCl 5 mg injection (REGLAN) 5 mg INTRAVENOUS q 6 H pantoprazole 40 mg injection (PROTONIX) 40 mg INTRAVENOUS BID AC (0600/1600) midazolam 100 mg in D5W 100 mL (VERSED) 1-10 mg/hr INTRAVENOUS CONTINUOUS docusate sodium oral liquid 100 mg/10 mL (DIOCTO,COLACE) 100 mg OROGASTRIC BID senna leaf extract 176 mg/5 mL 528 mg 15 mL OROGASTRIC BID carboxymethylcellulose sodium 1-2 Drop (CELLUVISC) 1-2 Drop BOTH EYES PRN polyvinyl alcohol-povidone 1.4-0.6 % 1 Drop (REFRESH) 1 Drop BOTH EYES QID PRN heparin 1,000 unit/mL 4,000 Units injection 4,000 Units INTRAVENOUS 3 Times weekly with dialysis heparin 5,000 Units injection 5,000 Units SUBCUTANEOUS q 12 H NaCl 0.9% 1,000 mL iv bolus 1,000 mL INTRAVENOUS PRN DIALYSIS prismaSOL BGK 4 K / 2.5 mEq Ca/Liter 5,000 mL 5,000 mL HEMODIALYSIS continuous (no dispense) prismaSOL BGK 4 K / 2.5 mEq Ca/Liter 5,000 mL 5,000 mL HEMODIALYSIS continuous (no dispense) prismaSOL BGK 4 K / 2.5 mEq Ca/Liter 5,000 mL 5,000 mL HEMODIALYSIS continuous (no dispense) dextrose 40 % 15 g 15 g ORAL PRN Or glucagon 1 mg injection (GLUCAGEN) 1 mg INTRAMUSCULAR PRN Or dextrose 50% in water 25 mL syringe 12.5 g INTRAVENOUS PRN magnesium sulfate 1 g in D5W 100 mL 1 g INTRAVENOUS PRN magnesium sulfate in water 2 g in sterile water 50 ml 2 g INTRAVENOUS PRN fentaNYL 20 mcg/mL iv infusion in NaCl 0.9% 100 mL 0-200 mcg/hr INTRAVENOUS CONTINUOUS NORepinephrine 16 mg in D5W 250 mL (LEVOPHED) 0-30 mcg/min INTRAVENOUS CONTINUOUS Chlorhexidine Gluconate 0.12 % 15 mL (PERIDEX) 15 mL ORAL q 12 H LABS: CBC, Coags, BMP, Mg, Phos Recent Labs 01/28/18 0500 01/27/18 1720 01/27/18 1050 01/27/18 0530 01/26/18 0415 WBC 7.62 -- -- 8.91 -- 13.71* HB 8.5* -- -- 9.4* -- 11.3* HCT 27.0* -- -- 29.4* -- 34.3* PLT 131* -- -- 119* -- 135* NA 138 140 139 139 < > 137 K 4.1 4.0 3.9 4.1 < > 4.5 CHLOR 106 105 104 105 < > 105 CO2 26 25 26 27 < > 24 BUN 45* 53* 48* 42* < > 48* CREAT 1.45* 1.69* 1.63* 1.42* < > 1.57* GLUC 171* 184* 157* 158* < > 213* CA 7.1* 7.3* 7.2* 7.3* < > 7.8* MG 2.3 2.4 2.4 2.4 < > 2.6 P 2.7 3.7 3.1 2.8 < > 3.1 < > = values in this interval not displayed. Liver Function, Amylase, AND Lipase Recent Labs 01/28/18 0500 01/27/18 1720 01/27/18 1050 01/26/18 0415 TPROT 4.8* -- -- -- 5.3* ALB 1.0* 1.1* 1.1* < > 1.3* ALT 58 -- -- -- 89* AST 86* -- -- -- 87* ALKPHOS 150* -- -- -- 234* TBILI 8.4* -- -- -- 7.5* < > = values in this interval not displayed. Cardiac Enzymes DATA: Diagnostic tests reviewed for today's visit: Most recent labs and imaging results. Medication and Non-Pharmacologic VTE Prophylaxis/Anticoagulants Anticoagulant AND Antiplatelet Medications Start Dose Route Frequency Ordered Stop 01/16/18 1632 heparin 1,000 unit/mL 4,000 Units injection 4,000 Units INTRAVENOUS 3 TIMES WEEKLY WITH DIALYSIS 01/16/18 1632 -- 01/15/18 0900 heparin 5,000 Units injection 5,000 Units SUBCUTANEOUS EVERY 12 HOURS 01/14/18 1444 -- 01/12/18 0630 vte pharmacologic prophylaxis contraindicated ([place]) 01/12/18 0630 pneumatic compression stockings ([place], [place]) VTE Prophylaxis: VTE prophylaxis appropriate Assessment/Plan Neurology Anoxic encephalopathy (HCC) S/p AAA repair and cardiac arrest ., anoxic encephalopathy Lack of I improvement Is concerning suspect he may have suffered anoxic encephalopathy exam is limited. Need to continue supportive care Likely he may need dependant care MRI brain will Help to add further prognostic value [facility] STAFF PHYSICIAN NOTE OF PERSONAL INVOLVEMENT IN CARE This patient has a high probability of sudden, clinically significant deterioration, which requires the highest level of physician preparedness to intervene urgently. I managed/supervised life or organ supporting interventions that required frequent physician assessment. I devoted my full attention to the direct care of this patient for the amount of time indicated below. Time I spent with family or surrogate(s) is included only if the patient was incapable of providing the necessary information or participating in medical decision making. Time devoted to teaching and to any procedures I billed separately is not included. Critical Care Documentation: The patient has the following organ/system impairment(s): Anoxic encpehalopathy Time spent providing critical care services: 31 minutes. SIGNATURE: Adriane Carvalho MD PATIENT NAME: Naveen Akins DATE: January 28, 2018 TIME: 10:34 AM PAGER/CONTACT #: [phone] PROGRESS Observed: 01/28/2018 Status: COMPLETED Source: [place] 10:32 AM [facility] OTHER CAMPUS REPOSITORY HNO ID: [id number] Author: Shen Lorenzo Service: Nephrology Author Type: Physician Type: Progress Notes Filed: 01/28/2018 10:44 AM Note Text: Nephrology Progress Note Following for TERENCE. Pt is trached. Remains on ventilator. Cannot do ROS. Current Inpatient Medications: Current Facility-Administered Medications Ordered in [facility]: Parenteral Nutrition - Adult INTRAVENOUS ONCE TPN (1800 START) H Edwin Dudley Parenteral Nutrition - Adult INTRAVENOUS ONCE TPN (1800 START) H Edwin Dudley Last Rate: 62.5 mL/hr at 01/28/18 0400 hydrocortisone sodium succinate (PF) 50 mg injection (Solu- CORTEF) 50 mg INTRAVENOUS q 8 H Dorcas Mckeon Decoy 50 mg at 01/28/18 0516 meropenem 500 mg in NaCl 0.9% 100 mL MB+ (MERREM) 500 mg INTRAVENOUS q 8 H Dorcas Mckeon Decoy Last Rate: 200 mL/hr at 01/28/18 0515 500 mg at 01/28/18 0515 ipratropium-albuterol 3 mL nebulizer solution (DUONEB) 3 mL INHALATION q 4 H Dorcas Mckeon Decoy 3 mL at 01/28/18 0909 budesonide 0.5 mg/2 mL 0.5 mg (PULMICORT) 0.5 mg INHALATION BID Dorcas Mike Decoy 0.5 mg at 01/28/18 0908 metoclopramide HCl 5 mg injection (REGLAN) 5 mg INTRAVENOUS q 6 H Dorcas Mike Decoy 5 mg at 01/28/18 0519 pantoprazole 40 mg injection (PROTONIX) 40 mg INTRAVENOUS BID AC (0600/1600) Jocelynn (Res) Robson 40 mg at 01/28/18 0943 midazolam 100 mg in D5W 100 mL (VERSED) 1-10 mg/hr INTRAVENOUS CONTINUOUS Dorcas Mckeon Decoy Stopped at 01/27/18 2300 docusate sodium oral liquid 100 mg/10 mL (DIOCTO,COLACE) 100 mg OROGASTRIC BID Dorcas Mckeon Decoy 100 mg at 01/28/18 0946 senna leaf extract 176 mg/5 mL 528 mg 15 mL OROGASTRIC BID Dionicio (Res) Stevens 528 mg at 01/28/18 0945 carboxymethylcellulose sodium 1-2 Drop (CELLUVISC) 1-2 Drop BOTH EYES PRN Venkat Paniagua 2 Drop at 01/26/18 1625 polyvinyl alcohol-povidone 1.4-0.6 % 1 Drop (REFRESH) 1 Drop BOTH EYES QID PRN Paulo ([employer]) Hudock 1 Drop at 01/26/18 1724 heparin 1,000 unit/mL 4,000 Units injection 4,000 Units INTRAVENOUS 3 Times weekly with dialysis Troy Godoy 2,800 Units at 01/27/18 0834 heparin 5,000 Units injection 5,000 Units SUBCUTANEOUS q 12 H Mervin (Res) Wally 5,000 Units at 01/28/18 0951 NaCl 0.9% 1,000 mL iv bolus 1,000 mL INTRAVENOUS PRN DIALYSIS Shen Lorenzo 1,000 mL at 01/26/18 1116 prismaSOL BGK 4 K / 2.5 mEq Ca/Liter 5,000 mL 5,000 mL HEMODIALYSIS continuous (no dispense) Troy Godoy Last Rate: 800 mL/hr at 01/26/181999 5,000 mL at 01/27/18 0517 prismaSOL BGK 4 K / 2.5 mEq Ca/Liter 5,000 mL 5,000 mL HEMODIALYSIS continuous (no dispense) Troy Godoy Last Rate: 800 mL/hr at 01/26/181999 5,000 mL at 01/27/18 0517 prismaSOL BGK 4 K / 2.5 mEq Ca/Liter 5,000 mL 5,000 mL HEMODIALYSIS continuous (no dispense) Troy Godoy Last Rate: 800 mL/hr at 01/26/181999 5,000 mL at 01/27/18 0517 dextrose 40 % 15 g 15 g ORAL PRN Jack Regula Or glucagon 1 mg injection (GLUCAGEN) 1 mg INTRAMUSCULAR PRN Jack Regula Or dextrose 50% in water 25 mL syringe 12.5 g INTRAVENOUS PRN Jack Regula magnesium sulfate 1 g in D5W 100 mL 1 g INTRAVENOUS PRN Emilie (Res) Cardella Last Rate: 100 mL/hr at 01/15/18 0016 1 g at 01/15/18 0016 magnesium sulfate in water 2 g in sterile water 50 ml 2 g INTRAVENOUS PRN Emilie (Res) Cardella Last Rate: 25 mL/hr at 01/13/18 1004 2 g at 01/13/18 1004 fentaNYL 20 mcg/mL iv infusion in NaCl 0.9% 100 mL 0-200 mcg/hr INTRAVENOUS CONTINUOUS Dorcas Mike Decoy Last Rate: 3.75 mL/hr at 01/28/18 0400 75 mcg/hr at 01/28/18 0400 NORepinephrine 16 mg in D5W 250 mL (LEVOPHED) 0-30 mcg/min INTRAVENOUS CONTINUOUS Dionicio (Res) Stevens Last Rate: 5.63 mL/hr at 01/28/18 0400 6 mcg/min at 01/28/18 0400 Chlorhexidine Gluconate 0.12 % 15 mL (PERIDEX) 15 mL ORAL q 12 H Elder Yu) Kalee 15 mL at 01/28/18 0942 No current Epic-ordered outpatient prescriptions on file. Vitals: BP 98/55 Pulse 95 Temp 36.2 ?C (97.2 ?F) (Axillary) Resp 20 Ht 172.7 cm (5' 7.99) Wt 82 kg (180 lb 12.4 oz) SpO2 99% BMI 27.49 kg/m? BLOOD PRESSURE RANGE: Systolic (24hrs), Av , Min:82 , Max:110 ; Diastolic (24hrs), Av, Min:45, Max:55 24HR INTAKE/OUTPUT: Intake/Output Summary (Last 24 hours) at 01/28/18 1032 Last data filed at 01/28/18 1000 Gross per 24 hour Intake 2771.3 ml Output 1748 ml Net 1023.3 ml Physical exam: Constitutional: NAD Skin: no rash, turgor wnl Heent: Trached Neck: no bruits or jvd noted Cardiovascular: S1, S2 normal without m/r/g Respiratory: Coarse breath sound bilaterally Abdomen: +bs, soft, nt, nd Ext: 1+ lower extremity edema Data: Labs: Recent Labs 01/28/18 0500 01/27/18 0530 01/26/18 0415 WBC 7.62 8.91 13.71* HB 8.5* 9.4* 11.3* HCT 27.0* 29.4* 34.3* MCV 89.1 89.1 87.1 PLT 131* 119* 135* Recent Labs 01/28/18 0500 01/27/18 1720 01/27/18 1050 NA 138 140 139 K 4.1 4.0 3.9 CO2 26 25 26 MG 2.3 2.4 2.4 BUN 45* 53* 48* CREAT 1.45* 1.69* 1.63* CA 7.1* 7.3* 7.2* Assessment and Plan 1. Acute kidney injury on chronic kidney disease stage 3. Baseline SCr is 1.36 mg/dL on 11/14/17. CKD is likely due to nephrosclerosis related to PAD. TERENCE is 2/2 ischemic ATN from shock. Currently on 5 mcg/min of NE gtt. Pt may be making some urine (difficult to quantify since he is incontinent). Nevertheless, he is still dialysis dependent. CVVHDF is progressing well. Effluent dose is adequate. Current net fluid removal is 0. Plan to transition the pt to intermittent HD next week. ? 2. Shock. Stable. Initially due to hemorrhagic shock-massive blood loss from ruptured AAA +/- adrenal insufficiency. Currently on low dose NE gtt. On hydrocortisone. 5. Ruptured AAA. s/p repair 01/12/18. Management as per vascular surgery. ? 6. Acute hypoxic respiratory failure. Ventilator dependent. Vent management as per pulmonary/CCM. Keep fluid from accumulating with CRRT UF. ? 7. Encephalopathy. Neuro evaluation in progress. Eventual MRI. d/w Dr. Paniagua Please do not hesitate to contact me at [phone] if there is any question or concern. Rosanna Talbert MD (Shen Lorenzo) PROGRESS Observed: 01/28/2018 Status: COMPLETED Source: [place] 9:14 AM CLINIC OTHER CAMPUS REPOSITORY HNO ID: [id number] Author: Kannan Felder Service: General Surgery Author Type: Resident Type: Progress Notes Filed: 01/28/2018 9:22 AM Note Text: PROGRESS NOTE EGS Surgery Progress Note Emergency General Surgery Service Pager: For questions or concerns Mon-Fri 6a-5p please page [phone]. After 5pm and on Weekends and Holidays, please page [phone] if in ICU or [phone] if on RNF. SERVICE DATE: 01/28/2018 SERVICE TIME: 9:14 AM SUBJECTIVE: Subjective Subjective: This is a 77 year old male Pt appears to be slowly improving. Opens eyes for nursing staff. Bowel movement No Flatus No Diet Parenteral Nutrition - Adult DIET TUBE FEED - CONTIN (NO TRAY) Parenteral Nutrition - Adult Ambulating No Nausea No Emesis No Current Facility-Administered Medications: Parenteral Nutrition - Adult INTRAVENOUS ONCE TPN (1800 START) hydrocortisone sodium succinate (PF) 50 mg injection (Solu- CORTEF) 50 mg INTRAVENOUS q 8 H meropenem 500 mg in NaCl 0.9% 100 mL MB+ (MERREM) 500 mg INTRAVENOUS q 8 H ipratropium-albuterol 3 mL nebulizer solution (DUONEB) 3 mL INHALATION q 4 H budesonide 0.5 mg/2 mL 0.5 mg (PULMICORT) 0.5 mg INHALATION BID metoclopramide HCl 5 mg injection (REGLAN) 5 mg INTRAVENOUS q 6 H pantoprazole 40 mg injection (PROTONIX) 40 mg INTRAVENOUS BID AC (0600/1600) midazolam 100 mg in D5W 100 mL (VERSED) 1-10 mg/hr INTRAVENOUS CONTINUOUS docusate sodium oral liquid 100 mg/10 mL (DIOCTO,COLACE) 100 mg OROGASTRIC BID senna leaf extract 176 mg/5 mL 528 mg 15 mL OROGASTRIC BID carboxymethylcellulose sodium 1-2 Drop (CELLUVISC) 1-2 Drop BOTH EYES PRN polyvinyl alcohol-povidone 1.4-0.6 % 1 Drop (REFRESH) 1 Drop BOTH EYES QID PRN heparin 1,000 unit/mL 4,000 Units injection 4,000 Units INTRAVENOUS 3 Times weekly with dialysis heparin 5,000 Units injection 5,000 Units SUBCUTANEOUS q 12 H NaCl 0.9% 1,000 mL iv bolus 1,000 mL INTRAVENOUS PRN DIALYSIS prismaSOL BGK 4 K / 2.5 mEq Ca/Liter 5,000 mL 5,000 mL HEMODIALYSIS continuous (no dispense) prismaSOL BGK 4 K / 2.5 mEq Ca/Liter 5,000 mL 5,000 mL HEMODIALYSIS continuous (no dispense) prismaSOL BGK 4 K / 2.5 mEq Ca/Liter 5,000 mL 5,000 mL HEMODIALYSIS continuous (no dispense) dextrose 40 % 15 g 15 g ORAL PRN Or glucagon 1 mg injection (GLUCAGEN) 1 mg INTRAMUSCULAR PRN Or dextrose 50% in water 25 mL syringe 12.5 g INTRAVENOUS PRN magnesium sulfate 1 g in D5W 100 mL 1 g INTRAVENOUS PRN magnesium sulfate in water 2 g in sterile water 50 ml 2 g INTRAVENOUS PRN fentaNYL 20 mcg/mL iv infusion in NaCl 0.9% 100 mL 0-200 mcg/hr INTRAVENOUS CONTINUOUS NORepinephrine 16 mg in D5W 250 mL (LEVOPHED) 0-30 mcg/min INTRAVENOUS CONTINUOUS Chlorhexidine Gluconate 0.12 % 15 mL (PERIDEX) 15 mL ORAL q 12 H OBJECTIVE: Objective PHYSICAL EXAM: VITAL SIGNS BP 98/55 Pulse 94 Temp (Src) 97.2 (Axillary) Resp 26 Ht 5' 7.992 (1.73m) Wt 180 lb 12.4 oz (82.0kg) SpO2 99% BMI 27.49 kg/(m2). Temp (24hrs), Av.6 ?C (97.9 ?F), Min:36.2 ?C (97.2 ?F), Max:37 ?C (98.6 ?F) Date 01/27/18699 - 01/28/18 0659 01/28/18699 - 01/29/18 0659 Shift 1093-0123 1597-5015 8453-6033 24 Hour Total 7924-0865 4139-5416 2692-1997 24 Hour Total I N T A K E PO 20 20 40 20 20 Tube Feed Intake (GI Feed/Drain 01/27/18 Assessment Gastrostomy) 20 20 40 20 20 IV 176.8 842.8 353.5 1373.1 NS 0.9% 500 500 Zosyn IV 50 50 Fentanyl Volume 44.5 54.1 105 203.6 NORepinephrine Volume 57.3 140.8 47.5 245.6 Midazolam Volume 25 47.9 1 73.9 Meropenem (Merrem) 100 200 300 TPN/PPN 315.2 679.6 495.5 1490.3 TPN 315.2 679.6 495.5 1490.3 Irrigants 20 20 0 0 Irrigant/Flush Amount In (GI Feed/Drain 01/27/18 Assessment Gastrostomy) 20 20 0 0 Shift Total 492 1542.4 889 2923.4 20 20 O U T P U T Urine Urine Incontinence/Not Saved 1 x 1 x 2 x Tubes 110 700 10 820 Drain/Tube Output (Drain/Tube 01/19/18 1015 Midline Abdomen) 10 10 20 Output (GI Feed/Drain 01/27/18 Assessment Gastrostomy) 700 700 Output ([REMOVED] GI Feed/Drain 01/12/18 0100 01/27/18) 100 100 # of BMs Number of BMs 0 x 0 x Dialysis 105 637 140 882 102 102 Dialysis Output (Ultrafiltration) 105 637 140 882 102 102 Shift Total 215 2480 022 2815 102 102 Weight (kg) 82.2 82.2 82 82 82 82 82 82 GENERAL: opens eyes SKIN: Skin color, texture, turgor normal. No rashes or lesions. LUNGS: Unlabored breathing on O2 Therapy: Ventilator on sating at SpO2: 99 % CARDIAC: rate and rhythm as above, ABDOMEN: Soft, No masses, hepatosplenomegaly, No lymphadenopathy and retention sutures in place. Wound vac on. EXTREMITIES: Deferred WOUND: vac in place. Retention sutures in place. g tube in place. Trach stable. DATA: Diagnostic tests reviewed for today's visit: Recent Labs 01/25/18 1600 PH 7.478* PCO2 28.3* PO2 79.2* BE -2.2 Recent Labs 01/28/18 0500 01/27/18 1720 01/27/18 1050 01/27/18 0530 01/26/18 2345 01/26/18 0415 01/25/18 2235 CREAT 1.45* 1.69* 1.63* 1.42* 1.41* < > 1.57* 1.63* BUN 45* 53* 48* 42* 42* < > 48* 47* NA 138 140 139 139 137 < > 137 137 K 4.1 4.0 3.9 4.1 4.6 < > 4.5 4.7 CHLOR 106 105 104 105 106 < > 105 106 CO2 26 25 26 27 25 < > 24 21 ANION -- -- -- -- -- -- 13 -- GLUC 171* 184* 157* 158* 156* < > 213* 175* CA 7.1* 7.3* 7.2* 7.3* 7.4* < > 7.8* 7.8* P 2.7 3.7 3.1 2.8 3.0 < > 3.1 2.8 MG 2.3 2.4 2.4 2.4 2.4 < > 2.6 2.5 ALB 1.0* 1.1* 1.1* 1.1* 1.1* < > 1.3* 1.4* AST 86* -- -- -- -- -- 87* -- ALT 58 -- -- -- -- -- 89* -- ALKPHOS 150* -- -- -- -- -- 234* -- TBILI 8.4* -- -- -- -- -- 7.5* -- WBC 7.62 -- -- 8.91 -- -- 13.71* 16.24* HB 8.5* -- -- 9.4* -- -- 11.3* 11.7* HCT 27.0* -- -- 29.4* -- -- 34.3* 35.2* PLT 131* -- -- 119* -- -- 135* 155 < > = values in this interval not displayed. ASSESSMENT AND PLAN: Active Hospital Problems Diagnosis Date Noted - Ruptured abdominal aortic aneurysm (AAA) ([facility]) 01/12/2018 - Obesity, Class I, BMI 30-34.9 01/16/2018 - Encephalopathy 01/13/2018 - DIC (disseminated intravascular coagulation) ([facility]) 01/12/2018 - Hemorrhagic shock ([facility]) 01/12/2018 - Acute respiratory failure ([facility]) 01/12/2018 - Cardiac arrest (HCC) 01/12/2018 - Hypernatremia 01/12/2018 - Hypokalemia 01/12/2018 - Hypomagnesemia 01/12/2018 - Hypophosphatemia 01/12/2018 - Hyperchloremia 01/12/2018 - AAA (abdominal aortic aneurysm, ruptured) ([facility]) 01/12/2018 Overview Note: Added automatically from request for surgery [id number] Assessment/Plan 77 year old male with Ruptured AAA s/p Emergent Repair, takeback washout, repair of serosal tears x2, on 01/12, hemorrhagic shock, acute resp failure with pulm edema, TERENCE, SVT, s/p Third Look Laparotomy and?washout on 01/14, fourth look, washout, vac change on 01/16, Partial fascial closure on 01/19 -trach/peg stable -continue med mgmt per npcs -advance tube feeds to goal as tolerated -wean levo as tolerated -keep wound vac and retention sutures in place-will determine timing of complete closure with attending. SIGNATURE: Kannan Felder MD PATIENT NAME: Naveen Akins DATE: January 28, 2018 TIME: 9:14 AM PAGER: [phone] PROGRESS Observed: 01/28/2018 Status: COMPLETED Source: [place] 8:45 AM [facility] OTHER CAMPUS REPOSITORY HNO ID: [id number] Author: Braxton Sloan MD Service: Vascular Surgery Author Type: Resident Type: Progress Notes Filed: 01/28/2018 8:51 AM Note Text: Attestation signed by Venkat Paniagua at 01/28/2018 12:09 PM This patient is stable status post trach and PEG yesterday. He does open his eyes to stimuli but not to voice. His pupils are reactive but he only really blinks out of reflex at this point in time. He is still on fentanyl but is off other sedation. Neurologic status is still in question. I have a lengthy discussion with the family as I have on a daily basis regarding the patient's status. At this point I do tell him that we are beginning to move in a direction that we are going to possibly get him on intermittent dialysis this coming week hopefully we can wean him off of pressors altogether. Hopefully we can cut back on his fentanyl. Hopefully we can potentially wean his vent settings a little to see if he can support his own pulmonary status a little more than he is currently doing. This should be easier now that we have a tracheostomy in place. I do discuss with the patient's family that it looks like he may be headed for a long-term acute care facility and that they should begin thinking about that at this point I do state that he continues to do reasonably well with issues with liver insufficiency and renal failure and some pulmonary insufficiency as well. I do state however that these all have seemingly improved with the exception of the renal status and his bilirubin which really have not changed much over the last week. At this point in time I have discussed the case with the nephrology consultants as well and they agree that they will try to put him on intermittent dialysis this coming week. At this juncture if the patient continues in his current state or continues to improve we will be looking to have the patient go to a long-term acute care facility in the near future. Vascular Surgery Progress Note SERVICE DATE: 01/28/2018 Subjective SUBJECTIVE: NAEON. Pt has been weaned from versed, is on 75 fentanyl. Does not respond to his name. Per nursing he would grimace to pain but would not for me. Trach/peg placed yesterday. Diet: Parenteral Nutrition - Adult DIET TUBE FEED - CONTIN (NO TRAY) Parenteral Nutrition - Adult Objective OBJECTIVE: Vitals: Temp (24hrs), Av.7 ?C (98 ?F), Min:36.2 ?C (97.2 ?F), Max:37 ?C (98.6 ?F) BP 98/55 Pulse 93 Temp 36.9 ?C (98.4 ?F) Resp 17 Ht 172.7 cm (5' 7.99) Wt 82 kg (180 lb 12.4 oz) SpO2 99% BMI 27.49 kg/m? O2 Therapy: Ventilator IANDO: Date 01/27/18699 - 01/28/18 0659 01/28/18699 - 01/29/18 0659 Shift [id number] 6927-1010 4929-3988 24 Hour Total 7656-8775 1016-3258 8348-6281 24 Hour Total I N T A K E PO 20 20 40 20 20 Tube Feed Intake (GI Feed/Drain 01/27/18 Assessment Gastrostomy) 20 20 40 20 20 IV 176.8 842.8 353.5 1373.1 NS 0.9% 500 500 Zosyn IV 50 50 Fentanyl Volume 44.5 54.1 105 203.6 NORepinephrine Volume 57.3 140.8 47.5 245.6 Midazolam Volume 25 47.9 1 73.9 Meropenem (Merrem) 100 200 300 TPN/PPN 315.2 679.6 495.5 1490.3 TPN 315.2 679.6 495.5 1490.3 Irrigants 20 20 0 0 Irrigant/Flush Amount In (GI Feed/Drain 01/27/18 Assessment Gastrostomy) 20 20 0 0 Shift Total 492 1542.4 889 2923.4 20 20 O U T P U T Urine Urine Incontinence/Not Saved 1 x 1 x 2 x Tubes 110 700 10 820 Drain/Tube Output (Drain/Tube 01/19/18 1015 Midline Abdomen) 10 10 20 Output (GI Feed/Drain 01/27/18 Assessment Gastrostomy) 700 700 Output ([REMOVED] GI Feed/Drain 01/12/18 0100 01/27/18) 100 100 # of BMs Number of BMs 0 x 0 x Dialysis 105 637 140 882 102 102 Dialysis Output (Ultrafiltration) 105 637 140 882 102 102 Shift Total 215 2425 236 1928 102 102 Weight (kg) 82.2 82.2 82 82 82 82 82 82 MEDICATIONS Current Facility-Administered Medications: Parenteral Nutrition - Adult INTRAVENOUS ONCE TPN (1800 START) hydrocortisone sodium succinate (PF) 50 mg injection (Solu- CORTEF) 50 mg INTRAVENOUS q 8 H meropenem 500 mg in NaCl 0.9% 100 mL MB+ (MERREM) 500 mg INTRAVENOUS q 8 H ipratropium-albuterol 3 mL nebulizer solution (DUONEB) 3 mL INHALATION q 4 H budesonide 0.5 mg/2 mL 0.5 mg (PULMICORT) 0.5 mg INHALATION BID metoclopramide HCl 5 mg injection (REGLAN) 5 mg INTRAVENOUS q 6 H pantoprazole 40 mg injection (PROTONIX) 40 mg INTRAVENOUS BID AC (0600/1600) midazolam 100 mg in D5W 100 mL (VERSED) 1-10 mg/hr INTRAVENOUS CONTINUOUS docusate sodium oral liquid 100 mg/10 mL (DIOCTO,COLACE) 100 mg OROGASTRIC BID senna leaf extract 176 mg/5 mL 528 mg 15 mL OROGASTRIC BID carboxymethylcellulose sodium 1-2 Drop (CELLUVISC) 1-2 Drop BOTH EYES PRN polyvinyl alcohol-povidone 1.4-0.6 % 1 Drop (REFRESH) 1 Drop BOTH EYES QID PRN heparin 1,000 unit/mL 4,000 Units injection 4,000 Units INTRAVENOUS 3 Times weekly with dialysis heparin 5,000 Units injection 5,000 Units SUBCUTANEOUS q 12 H NaCl 0.9% 1,000 mL iv bolus 1,000 mL INTRAVENOUS PRN DIALYSIS prismaSOL BGK 4 K / 2.5 mEq Ca/Liter 5,000 mL 5,000 mL HEMODIALYSIS continuous (no dispense) prismaSOL BGK 4 K / 2.5 mEq Ca/Liter 5,000 mL 5,000 mL HEMODIALYSIS continuous (no dispense) prismaSOL BGK 4 K / 2.5 mEq Ca/Liter 5,000 mL 5,000 mL HEMODIALYSIS continuous (no dispense) dextrose 40 % 15 g 15 g ORAL PRN Or glucagon 1 mg injection (GLUCAGEN) 1 mg INTRAMUSCULAR PRN Or dextrose 50% in water 25 mL syringe 12.5 g INTRAVENOUS PRN magnesium sulfate 1 g in D5W 100 mL 1 g INTRAVENOUS PRN magnesium sulfate in water 2 g in sterile water 50 ml 2 g INTRAVENOUS PRN fentaNYL 20 mcg/mL iv infusion in NaCl 0.9% 100 mL 0-200 mcg/hr INTRAVENOUS CONTINUOUS NORepinephrine 16 mg in D5W 250 mL (LEVOPHED) 0-30 mcg/min INTRAVENOUS CONTINUOUS Chlorhexidine Gluconate 0.12 % 15 mL (PERIDEX) 15 mL ORAL q 12 H Labs: Recent Labs 01/28/18 0500 01/27/18 1720 01/27/18 0530 01/26/18 0415 01/25/18 1600 NA 138 140 < > 139 < > 137 < > -- K 4.1 4.0 < > 4.1 < > 4.5 < > -- CHLOR 106 105 < > 105 < > 105 < > -- CO2 26 25 < > 27 < > 24 < > -- BUN 45* 53* < > 42* < > 48* < > -- CREAT 1.45* 1.69* < > 1.42* < > 1.57* < > -- GLUC 171* 184* < > 158* < > 213* < > -- ANION -- -- -- -- -- 13 -- -- CA 7.1* 7.3* < > 7.3* < > 7.8* < > -- MG 2.3 2.4 < > 2.4 < > 2.6 < > -- P 2.7 3.7 < > 2.8 < > 3.1 < > -- ALB 1.0* 1.1* < > 1.1* < > 1.3* < > -- AST 86* -- -- -- -- 87* -- -- ALT 58 -- -- -- -- 89* -- -- ALKPHOS 150* -- -- -- -- 234* -- -- TBILI 8.4* -- -- -- -- 7.5* -- -- WBC 7.62 -- -- 8.91 -- 13.71* < > -- HB 8.5* -- -- 9.4* -- 11.3* < > -- HCT 27.0* -- -- 29.4* -- 34.3* < > -- PLT 131* -- -- 119* -- 135* < > -- PH -- -- -- -- -- -- -- 7.478* PCO2 -- -- -- -- -- -- -- 28.3* PO2 -- -- -- -- -- -- -- 79.2* BE -- -- -- -- -- -- -- -2.2 < > = values in this interval not displayed. Exam: GENERAL: No distress NEURO: Does not respond to name or commands HEENT: normocephalic, atraumatic, icterus LUNGS: Unlabored breathing O2 Therapy: Ventilator CARDIAC: yuliana ABDOMEN: Soft, non-tender, non-distended, no warmth or erythema, Vac and retention sutures in place EXTREMITIES: No deformities SKIN: Jaundice, No rashes or lesions ASSESSMENT AND PLAN: Active Hospital Problems Diagnosis Date Noted - Ruptured abdominal aortic aneurysm (AAA) ([facility]) 01/12/2018 - Obesity, Class I, BMI 30-34.9 01/16/2018 - Encephalopathy 01/13/2018 - DIC (disseminated intravascular coagulation) ([facility]) 01/12/2018 - Hemorrhagic shock ([facility]) 01/12/2018 - Acute respiratory failure ([facility]) 01/12/2018 - Cardiac arrest ([facility]) 01/12/2018 - Hypernatremia 01/12/2018 - Hypokalemia 01/12/2018 - Hypomagnesemia 01/12/2018 - Hypophosphatemia 01/12/2018 - Hyperchloremia 01/12/2018 - AAA (abdominal aortic aneurysm, ruptured) ([facility]) 01/12/2018 Overview Note: Added automatically from request for surgery [id number] 77 year old male with Ruptured AAA s/p Emergent Repair, takeback washout, repair of serosal tears x2, on 01/12, hemorrhagic shock, acute resp failure with pulm edema, TERENCE, SVT, s/p Third Look Laparotomy and?washout on 01/14, fourth look, washout, vac change on 01/16, Partial fascial closure on 01/19 ? - POD1 trach/peg, both functioning well. - Vent mgmt per MICU - NPO/TPN, TFs at 20 mL/hour (goal 50) - Wean Levo as tolerated, currently at 6 mcg - Acute blood loss and dilutional anemia and thrombocytopenia - monitor, stable - TERENCE -->?CVVHD per?Nephro, diurese as tolerates - CXR w bilateral opacities - SpCx pending, Smear +GNB -->?meropenum start post-trach/peg - cont scrotal support - Cont WV --> wound care following for VAC changes - Hyperbilirubinemia and Transaminitis -->?trending down, Abd US WNL - Solucortef 50mg q8h per MICU - Leukocytosis - reactive, steroid related, and possibly 2/2 PNA ?? Assessment and plan discussed with attending: Dr. Paniagua SIGNATURE: Braxton Sloan MD PATIENT NAME: Naveen Akins DATE: January 28, 2018 TIME: 8:45 AM Pager: [phone] CHEST 1 VIEW Observed: 01/28/2018 Status: F Source: [facility] 5:51 AM HEALTH SYSTEM REPOSITORY Performed at [facility] APPROVED BY: Bernardino Lewis MD EXAM TITLE: AP UPRIGHT CHEST DATE: 01/28/2018 05:32 COMPARISON: 01/27/2018, 01/26/2018, 01/25/2018 and 01/24/2018 CLINICAL INDICATION/HISTORY: Evaluate tubes and lines. Shortness of breath. TECHNIQUE: A single AP upright portable view of the chest is presented. FINDINGS: Tubes and lines: There has been interval replacement of the endotracheal tube with a tracheostomy tube. There has been interval removal of the enteric catheter. There is a right internal jugular venou s catheter with its tip in the inferior aspect of the right atrium. No other tubes or lines are identified. Cardiomediastinal silhouette: Cardiac silhouette is within normal limits. Thoracic aorta is slightly tortuous. The mediastinum is unremarkable. Lungs and pleura: The right costophrenic angle is clear. There is slight indistinctness left costophrenic angle suspicious for small left pleural effusion. There is a small amount of atelectasis or in filtrate in the mid and lower left lung field as well as the inferior medial right lung base. This is slightly more prominent than on prior examination. No other areas of focal increased density are i dentified. There is no evidence of pneumothorax. IMPRESSION: 1. Interval replacement of endotracheal tube with a tracheostomy tube which appears to be in adequate position. 2. Interval removal of enteric catheter. 3. No evidence of pneumothorax. 4. Bilateral infiltrates as described above slightly more prominent than on prior study. 5. Otherwise no interval change. IONIZED CALCIUM Collected: 01/28/2018 Status: F Source: [facility] 5:00 AM HEALTH SYSTEM REPOSITORY TYPE CODE TESTS RESULT OUT OF REFERENCE UNITS RANGE LAB CAION(LOINC 4.43-4.93 mg/dL ) Low Ionized 4.14 Calcium LAB PHCAI(LOINC 7.320-7.420 ) pH High 7.455 LAB CAPH(LOINC) 4.36-4.73 mg/dL Low Ionized 4.25 Ca,PH7.4 Performed By: #### RALPH #### [facility] [address] [place], [place] [address] HEMOGRAM/DIFF Collected: 01/28/2018 Status: F Source: [facility] 5:00 AM HEALTH SYSTEM REPOSITORY TYPE CODE TESTS RESULT OUT OF REFERENCE UNITS RANGE LAB WBC(LOINC) 4.23-9.07 thou/cmm WBC 7.62 LAB RBC(LOINC) 4.63-6.08 mil/cmm Low RBC 3.03 LAB HGB(LOINC) 13.7-17.5 g/dL Low Hgb 8.5 LAB HCT(LOINC) 40.1-51.0 % Low Hct 27.0 LAB MCV(LOINC) 83.2-95.6 fl MCV 89.1 LAB MCH(LOINC) 25.7-32.2 pg MCH 28.1 LAB MCHC(LOINC 32.3-36.5 % ) Low MCHC 31.5 LAB RDW(LOINC) 11.6-14.4 % RDW High 20.5 LAB RDWSD(LOIN 36.1-45.8 fl C) RDW SD High 66.0 LAB PLT(LOINC) 141-365 thou/cmm Low Platelet 131 LAB MPV(LOINC) 8.7-12.0 fl MPV High 13.0 LAB SEG(LOINC) % Seg Neutrophil 85.2 LAB IGRE(LOINC % ) Immature Grans 3.50 LAB LYMPH(LOIN % C) Lymphocyte 6.4 LAB MNO(LOINC) % Monocyte 4.7 LAB EOSIN(LOIN % C) Eosinophil 0.1 LAB BASO(LOINC % ) Basophil 0.1 LAB SEGN(LOINC 1.78-5.38 thou/cmm ) Abs. High Neut (ANC) 6.49 LAB IGAB(LOINC 0.00-0.05 thou/cmm ) Abs High Immature Grans 0.27 LAB LYMN(LOINC 0.84-2.85 thou/cmm ) Low Abs. Lymph 0.49 LAB MONON(LOIN 0.30-0.82 thou/cmm C) Abs. Rincon 0.36 LAB EOSN(LOINC 0.04-0.54 thou/cmm ) Low Abs. Eosin 0.01 LAB BASON(LOIN 0.01-0.08 thou/cmm C) Abs. Baso 0.01 Result Comment: Smear scanned; tech agrees with automated differential Performed By: #### [id number] #### [place] [address] HEPATIC PANEL Collected: 01/28/2018 Status: F Source: [facility] 5:00 HEALTH SYSTEM REPOSITORY TYPE CODE TESTS RESULT OUT OF REFERENCE UNITS RANGE LAB ALT(LOINC) 12-78 U/L ALT-SGPT Blood 58 LAB ALKP(LOINC 46-116 U/L ) Alk High Phosphatase 150 LAB TP(LOINC) 6.4-8.2 g/dL Low Total Protein 4.8 LAB AST(LOINC) 9-37 U/L AST-SGOT High Blood 86 LAB BILIT(LOIN 0.2-1.0 mg/dL C) Total High Bilirubin 8.4 LAB DBIL(LOINC 0.00-0.20 mg/dL ) Direct High Bilirubin 7.28 LAB ALB(LOINC) 3.4-5.0 g/dL Low Albumin Blood 1.0 Performed By: #### HEPAP #### [place] [address] RENAL PANEL Collected: 01/28/2018 Status: F Source: [facility] 5:00 PENDING SALE TO [facility] REPOSITORY TYPE CODE TESTS RESULT OUT OF REFERENCE UNITS RANGE LAB NA(LOINC) 136-145 mEq/L Sodium Blood 138 LAB K(LOINC) 3.5-5.1 mEq/L Potassium Blood 4.1 LAB CL(LOINC) 98-107 mEq/L Chloride Blood 106 LAB CO2(LOINC) 21-32 mEq/L CO2 Blood 26 LAB GLU(LOINC) 70-99 mg/dL Glucose High Blood 171 LAB BUN(LOINC) 7-18 mg/dL BUN High Blood 45 LAB CREA(LOINC 0.67-1.17 mg/dL ) High Creatinine Blood 1.45 LAB CA(LOINC) 8.5-10.1 mg/dL Low Calcium Blood 7.1 LAB PHOS(LOINC 2.5-4.9 mg/dL ) Phosphorus Blood 2.7 Performed By: #### RENAL #### [facility] [address] [place] [address] EKG (AK,AV,EU,FV,HL,CYNTHIA,MM,SP) Observed: Status: F Source: [place] 01/28/2018 4:32 AM [facility] OTHER [place] REPOSITORY NAME : NAVEEN AKINS PID : [id number] : 1940 Gender : Male Race : ORD : [id number] Procedure Date : Jan 28 2018 04:32 Edit Date : Jan 30 2018 09:55 Diagnosis:SINUS TACHYCARDIA OTHERWISE NORMAL ECG WHEN COMPARED WITH ECG OF 14-JAN-2018 14:46, NONSPECIFIC T WAVE ABNORMALITY, IMPROVED IN ANTEROLATERAL LEADS Confirmed by MD Pardo Vinayak A. ([id number]) on 01/30/2018 9:55:36 AM Ventricular Rate : 101 BPM Atrial Rate : 101 BPM P-R Interval : 122 ms QRS Duration : 68 ms Q-T Interval : 356 ms QTC Calculation(Bezet) : 461 ms P [place] : -26 degrees R [place] : -1 degrees T [place] : 45 degrees Test Reason : Check QT Location : 3 : [facility] 3233 Overread By : MD Pardo Vinayak A. Editted By : MD Pardo Vinayak A. Referred By : PAULO LOVELACE Acquired by : Xuan Warner OPERATIVE NO Observed: 01/27/2018 Status: COMPLETED Source: [place] 9:50 PM [facility] REPOSITORY HNO ID: [id number] Author: Ashu Menezes Service: General Surgery Author Type: Physician Type: Operative Report Filed: 02/08/2018 6:41 AM Note Text: Operative Note: ? LOG ID: [id number] SURGERY/PROCEDURE DATE: 01/27/2018 INCISION/PROCEDURE START TIME: 12:59 PM INCISION CLOSE/PROCEDURE END TIME: 2:17 PM ? SURGEON(S)/PROCEDURALIST(S) AND VISUAL ARTS TEACHER(S): Surgeon(s) and Role: Panel 2: * Ashu Menezes - Primary * Darrell (Luther Tavarez DO - Assisting Dyed Yarn Operator: Hailey () SA Zack; Sherrill () SA Anjali ? SURGERY/PROCEDURE(S): percutaneous endoscopic gastrostomy tube placement ? ANESTHESIA: General ? FINDINGS: diffuse gastritis and esophagitis, no discrete ulcer, 20 Chinese gastrostomy tube placed to 4 cm at the skin ? ESTIMATED BLOOD LOSS: 20 mls ? SPECIMENS: None ? COMPLICATIONS: None ? PRE-OP/PRE-PROCEDURE DIAGNOSIS: Dysphagia, AAA (abdominal aortic aneurysm, ruptured) (HCC) [I71.3] ? POST-OP/POST-PROCEDURE DIAGNOSIS: dysphagia, AAA (abdominal aortic aneurysm, ruptured) (HCC) [I71.3] OPERATIVE INDICATIONS: Patient is admitted to the Vascular Surgery service for history of a ruptured abdominal aortic aneurysm with a complicated postoperative course. The Acute Care Surgery was consulted for placement of a percutaneous endoscopic gastrostomy tube. Patient and/or Power of workers compensation defense attorney was consented for the risks, benefits, and details, including but not limited to bleeding, damage to surrounding organs, and they voiced understanding and desired to proceed. OPERATIVE PROCEDURE: Patient was brought into the operating room where a huddle, time-out procedure, preoperative antibiotics, general anesthetic , then sterile drape and prep were all completed in the usual customary fashion. The tracheostomy portion of the case was done first. We then brought the neck in flexion, placed the endoscope into the mouth, down the esophagus, and insufflated the gastric lumen. There was diffuse gastritis and esophagitis, no discrete ulcer. Transillumination of abdominal wall with one-to-one finger indentation of the stomach wall was confirmed. We then using safe track technique, placed a needle through the abdominal wall into the gastric lumen and using Seldinger technique, passed a guide wire into the gastric lumen. A guide wire was then grasped with the endoscope and retracted out esophagus and mouth. We fixated the gastrostomy tube to the guide wire and then retracted it down antegrade down the esophagus into the gastric lumen and out the abdominal wall after making a 2-cm skin incision. We secured the gastrostomy tube in place at 4 cm and placed to gravity drainage. Endoscopic visualization confirmed that there was good approximation to the gastric mucosa, and no evidence of bleeding. Gastrostomy tube may be used for enteric nutrition as well as medications in 6 hours. Counts: all instrument and sponge counts were correct Ashu Simpson MD, staff surgeon, was present and participated in the entire procedure. Ashu Menezes MD Department of General Surgery Section of Trauma, Surgery Critical Care, and Acute Care Surgery RENAL PANEL Collected: 01/27/2018 Status: F Source: [facility] 5:20 PM HEALTH SYSTEM REPOSITORY TYPE CODE TESTS RESULT OUT OF REFERENCE UNITS RANGE LAB NA(LOINC) 136-145 mEq/L Sodium Blood 140 LAB K(LOINC) 3.5-5.1 mEq/L Potassium Blood 4.0 LAB CL(LOINC) 98-107 mEq/L Chloride Blood 105 LAB CO2(LOINC) 21-32 mEq/L CO2 Blood 25 LAB GLU(LOINC) 70-99 mg/dL Glucose High Blood 184 LAB BUN(LOINC) 7-18 mg/dL BUN High Blood 53 LAB CREA(LOINC 0.67-1.17 mg/dL ) High Creatinine Blood 1.69 LAB CA(LOINC) 8.5-10.1 mg/dL Low Calcium Blood 7.3 LAB ALB(LOINC) 3.4-5.0 g/dL Low Albumin Blood 1.1 LAB PHOS(LOINC 2.5-4.9 mg/dL ) Phosphorus Blood 3.7 Performed By: #### RENAL #### [place] [address] MAGNESIUM BLOOD Collected: 01/27/2018 Status: F Source: [facility] 5:20 PM HEALTH SYSTEM REPOSITORY TYPE CODE TESTS RESULT OUT OF REFERENCE UNITS RANGE LAB MAG(LOINC) 1.6-2.6 mg/dL Magnesium Blood 2.4 Performed By: #### MAG #### [facility] [address] [place] [address] NURSING PROG Observed: 01/27/2018 Status: COMPLETED Source: [place] 3:30 PM [facility] REPOSITORY HNO ID: [id number] Author: Traci Delvalle (Rn) MAGALY Oconnell Service: Dialysis Author Type: Registered Nurse Type: Nursing Progress Note Filed: 01/27/2018 3:47 PM Note Text: CRRT CIRCUIT CHANGED M100 LINES REVERSED A:V V:A HEMOSAFE DEVICES ON AND INTACT X 2 ALL PUMPS AT 800 ML BFR 200 UF EVEN ORDERS REVIEWED WITH DR GODOY REPORT TO JANELL GARDNER SEE FLOW SHEET FOR DETAILS WILL MONITOR CLOSELY ANES POST Observed: 01/27/2018 Status: COMPLETED Source: [place] 3:15 PM [facility] OTHER [place] REPOSITORY HNO ID: [id number] Author: Tim Menon Service: Anesthesiology Author Type: Physician Type: Anesthesia PostOp Filed: 01/27/2018 3:17 PM Note Text: POST ANESTHESIA EVALUATION NOTE SERVICE DATE: 01/27/2018 SERVICE TIME: 3:16 PM : 1940 Vitals: 01/27/18 0300 01/27/18 0400 01/27/18 0700 01/27/18 1100 Temp: 36.1 ?C (97 ?F) 36.2 ?C (97.2 ?F) 36.4 ?C (97.5 ?F) 36.7 ?C (98.1 ?F) 01/27/18 0900 01/27/18 1000 01/27/18 1100 01/27/18 1200 Arterial BP 1: 135/62 100/50 101/52 90/48 BP: 99/55 97/52 01/27/18 1055 01/27/18 1100 01/27/18 1200 01/27/18 1436 Pulse: 100 100 98 87 01/27/18 1055 01/27/18 1100 01/27/18 1200 01/27/18 1436 Resp: 18 18 16 18 01/27/18 1055 01/27/18 1100 01/27/18 1200 01/27/18 1436 SpO2: 98% 99% 99% 95% Validated Vital Signs: Yes POST ANES STATUS: No apparent anesthetic complications. The patient is appropriately hydrated with stable respiratory and cardiovascular status. Patient has safe and adequate airway control. The patient has appropriate pain relief and no significant post operative nausea or vomiting. The patient has achieved baseline mental status. Further assessment by Anesthesia Service: None Other Remarks: SIGNATURE: Tim Menon MD PATIENT NAME: Naveen Akins DATE: January 27, 2018 TIME: 3:16 PM PAGER/CONTACT #: [phone] BRIEF OP NOT Observed: 01/27/2018 Status: COMPLETED Source: [place] 2:50 PM [facility] REPOSITORY HNO ID: [id number] Author: Simi Cox Service: Vascular Surgery Author Type: Physician Type: Brief Op Note Filed: 01/27/2018 2:55 PM Note Text: VASCULAR SURGERY BRIEF OPERATIVE NOTE Surgery/Procedure Date: 01/27/2018 Incision/Procedure Start Time: 12:59 PM Incision Close/Procedure End Time: 2:17 PM [facility] [id number] 77 y/o Preop Diagnosis (Diagnosis Codes): Pre-Op Diagnosis Codes: * AAA (abdominal aortic aneurysm, ruptured) (HCC) [I71.3] Failure to wean from ventilator Postop Diagnosis: Same Procedure(s): tracheostomy, 8 fr Primary Surgeon(s): Simi Cox MD Thoracic and Vascular Surgery Beeper# [phone] Industrial Laborer(s): SA KE JAMISON MD Anesthesia: General Estimated Blood Loss: 15 cc Fluids: 100 cc crystalloid Urine Output: NOT RECORDED, MINIMAL cc Specimens Removed: None Drains: None Complications: None Findings: THYROID INFLAMMATION, MARKEDLY ADHERENT TO TRACHEA SIGNATURE: Simi Cox MD PATIENT NAME: Naveen Akins DATE: January 27, 2018 TIME: 2:50 PM @ORCPT@ BRIEF OP NOT Observed: 01/27/2018 Status: COMPLETED Source: [place] 2:35 PM CLINIC OTHER CAMPUS REPOSITORY HNO ID: [id number] Author: Ashu Menezes Service: General Surgery Author Type: Physician Type: Brief Op Note Filed: 01/28/2018 5:25 PM Note Text: BRIEF OPERATIVE / PROCEDURE NOTE LOG ID: [id number] SURGERY/PROCEDURE DATE: 01/27/2018 INCISION/PROCEDURE START TIME: 12:59 PM INCISION CLOSE/PROCEDURE END TIME: 2:17 PM SURGEON(S)/PROCEDURALIST(S) AND VISUAL ARTS TEACHER(S): Surgeon(s) and Role: Panel 1: * Simi Cox - Primary Panel 2: * Ashu Menezes - Primary * Darrell Tavarez DO - Assisting Dyed Yarn Operator: Hailey Dixon SA; Sherrill Alba SA SURGERY/PROCEDURE(S): Tracheostomy, percutaneous endoscopic gastrostomy tube placement ANESTHESIA: General FINDINGS: diffuse gastritis and esophagitis, no discrete ulcer, 20 Chinese gastrostomy tube placed to 4 cm at the skin ESTIMATED BLOOD LOSS: 20 mls SPECIMENS: None COMPLICATIONS: None PRE-OP/PRE-PROCEDURE DIAGNOSIS: Dysphagia, AAA (abdominal aortic aneurysm, ruptured) (HCC) [I71.3] POST-OP/POST-PROCEDURE DIAGNOSIS: dysphagia, AAA (abdominal aortic aneurysm, ruptured) (HCC) [I71.3] SIGNATURE: Darrell Tavarez DO PATIENT NAME: Naveen Akins DATE: January 27, 2018 TIME: 2:35 PM PAGER/CONTACT #: [phone] [facility] Operative Staff Addendum I was present and participated in the entire procedure. MD NURA Espino PREOP Observed: 01/27/2018 Status: COMPLETED Source: [place] 1:33 PM CLINIC OTHER CAMPUS REPOSITORY [facility]NO ID: [id number] Author: Derian Barlow Service: Anesthesiology Author Type: Physician Type: Anesthesia PreOp Filed: 01/27/2018 1:36 PM Note Text: ANESTHESIOLOGY DAY OF SURGERY NOTE SERVICE DATE: 01/27/2018 SERVICE TIME: 1229 : 1940 Procedure(s) (LRB): TRACHEOSTOMY ADULT (N/A) ENDOSCOPIC PERCUTANEOUS INSERTION TUBE GASTROSTOMY (N/A) Surgeon(s): Simi Ramírez (Res) DO [place] Estimated body mass index is 27.55 kg/m? as calculated from the following: Height as of this encounter: 172.7 cm (5' 8). Weight as of this encounter: 82.2 kg (181 lb 3.5 oz). Most recent hematocrit and potassium results: Hematocrit 29.4 01/27/2018 Potassium 3.9 01/27/2018 ANES DOS/PREOP NOTE: Vitals: 01/27/18 1000 01/27/18 1055 01/27/18 1100 01/27/18 1200 BP: 97/52 Pulse: 101 100 100 98 Resp: 15 18 18 16 Temp: 36.7 ?C (98.1 ?F) TempSrc: SpO2: 99% 98% 99% 99% Weight: Height: ACTIVE PROBLEM LIST Gallstone Pancreatitis Ruptured Abdominal Aortic Aneurysm (Aaa) (Hcc) Dic (Disseminated Intravascular Coagulation) (Hcc) Hemorrhagic Shock (Hcc) Acute Respiratory Failure (Hcc) Cardiac Arrest (Hcc) Hypernatremia Hypokalemia Hypomagnesemia Hypophosphatemia Hyperchloremia Encephalopathy Aaa (Abdominal Aortic Aneurysm, Ruptured) (Hcc) Obesity, Class I, Bmi 30-34.9 PAST MEDICAL HISTORY Diagnosis Date - DIC (disseminated intravascular coagulation) (HCC) 01/12/2018 PAST SURGICAL HISTORY Procedure Laterality Date - LAP CHOLECYSTECT/CHOLANGIOGRAPHY 05-28-09 - REPAIR UMBILICAL NATAN,5+Y/O,REDUC 05-28-09 FAMILY HISTORY Problem Relation Age of Onset - Coronary Artery Disease Father - None Mother Social History: Social History Substance Use Topics - Smoking status: Never Smoker - Smokeless tobacco: Not on file - Alcohol use No No current facility-administered medications on file prior to encounter. Current Outpatient Prescriptions on File Prior to Encounter: metoprolol succinate(TOPROL XL 50 MG 24 HR TAB) Take one(1) tablet daily. ASPIRIN 325 MG TAB Take one(1) tablet daily. triamterene/hydrochlorothiazid(DYAZIDE 37.5 MG-25 MG CAP) take one half (1/2) tablet daily LIPITOR 10 MG TAB Take one(1) tablet daily. Current Facility-Administered Medications: [MAR Hold due to Transfer] Parenteral Nutrition - Adult INTRAVENOUS ONCE TPN (1800 START) H Edwin Dudley [MAR Hold due to Transfer] hydrocortisone sodium succinate (PF) 50 mg injection (Solu-CORTEF) 50 mg INTRAVENOUS q 8 H Dorcas Palafox [MAR Hold due to Transfer] meropenem 500 mg in NaCl 0.9% 100 mL MB+ (MERREM) 500 mg INTRAVENOUS q 8 H Dorcas Palafox ceFAZolin injection (ANCEF, KEFZOL) X (OR/PROCEDURE) PRN Simi Cox 2 g at 01/27/18 1253 [MAR Hold due to Transfer] Parenteral Nutrition - Adult INTRAVENOUS ONCE TPN (1800 START) H Edwin Dudley Last Rate: 62.5 mL/hr at 01/27/18 0700 [MAR Hold due to Transfer] ipratropium-albuterol 3 mL nebulizer solution (DUONEB) 3 mL INHALATION q 4 H Dorcas Palafox 3 mL at 01/27/18 1054 [MAR Hold due to Transfer] budesonide 0.5 mg/2 mL 0.5 mg (PULMICORT) 0.5 mg INHALATION BID Dorcas Mckeon Decoy 0.5 mg at 01/27/18 0746 [MAR Hold due to Transfer] metoclopramide HCl 5 mg injection (REGLAN) 5 mg INTRAVENOUS q 6 H Dorcas Mckeon Decoy 5 mg at 01/27/18 1117 [MAR Hold due to Transfer] pantoprazole 40 mg injection (PROTONIX) 40 mg INTRAVENOUS BID AC (0600/1600) Jocelynn (Res) Robson 40 mg at 01/27/18 0517 [MAR Hold due to Transfer] midazolam 100 mg in D5W 100 mL (VERSED) 1-10 mg/hr INTRAVENOUS CONTINUOUS Dorcas Mckeon Decoy Last Rate: 5 mL/hr at 01/27/18 0700 5 mg/hr at 01/27/18 0700 [MAR Hold due to Transfer] docusate sodium oral liquid 100 mg/10 mL (DIOCTO,COLACE) 100 mg OROGASTRIC BID Dorcas Mike Decoy 100 mg at 01/26/18 2200 [MAR Hold due to Transfer] senna leaf extract 176 mg/5 mL 528 mg 15 mL OROGASTRIC BID Dionicio (Res) Stevens 528 mg at 01/26/18 2200 [MAR Hold due to Transfer] carboxymethylcellulose sodium 1- 2 Drop (CELLUVISC) 1-2 Drop BOTH EYES PRN Venkat Paniagua 2 Drop at 01/26/18 1625 [MAR Hold due to Transfer] polyvinyl alcohol-povidone 1.4- 0.6 % 1 Drop (REFRESH) 1 Drop BOTH EYES QID PRN Paulo (Meter Repair Shop Supervisor) Radu 1 Drop at 01/26/18 1724 [MAR Hold due to Transfer] heparin 1,000 unit/mL 4,000 Units injection 4,000 Units INTRAVENOUS 3 Times weekly with dialysis Troy Godoy 2,800 Units at 01/27/18 0834 [MAR Hold due to Transfer] heparin 5,000 Units injection 5,000 Units SUBCUTANEOUS q 12 H Mervin (Res) Wally 5,000 Units at 01/26/18 2200 [MAR Hold due to Transfer] NaCl 0.9% 1,000 mL iv bolus 1,000 mL INTRAVENOUS PRN DIALYSIS Shen Lorenzo 1,000 mL at 01/26/18 1116 [MAR Hold due to Transfer] prismaSOL BGK 4 K / 2.5 mEq Ca/Liter 5,000 mL 5,000 mL HEMODIALYSIS continuous (no dispense) Shen Lorenzo Last Rate: 800 mL/hr at 01/26/18 2000 5,000 mL at 01/27/18 0517 [MAR Hold due to Transfer] prismaSOL BGK 4 K / 2.5 mEq Ca/Liter 5,000 mL 5,000 mL HEMODIALYSIS continuous (no dispense) Shen Lorenzo Last Rate: 800 mL/hr at 01/26/18 2000 5,000 mL at 01/27/18 0517 [MAR Hold due to Transfer] prismaSOL BGK 4 K / 2.5 mEq Ca/Liter 5,000 mL 5,000 mL HEMODIALYSIS continuous (no dispense) Shen Lorenzo Last Rate: 800 mL/hr at 01/26/18 2000 5,000 mL at 01/27/18 0517 [MAR Hold due to Transfer] dextrose 40 % 15 g 15 g ORAL PRN Jack Regula Or [MAR Hold due to Transfer] glucagon 1 mg injection (GLUCAGEN) 1 mg INTRAMUSCULAR PRN Jack Regula Or [MAR Hold due to Transfer] dextrose 50% in water 25 mL syringe 12.5 g INTRAVENOUS PRN Jack Regula [MAR Hold due to Transfer] magnesium sulfate 1 g in D5W 100 mL 1 g INTRAVENOUS PRN Emilie (Res) Cardella Last Rate: 100 mL/hr at 01/15/18 0016 1 g at 01/15/18 0016 [MAR Hold due to Transfer] magnesium sulfate in water 2 g in sterile water 50 ml 2 g INTRAVENOUS PRN Emilie (Res) Cardella Last Rate: 25 mL/hr at 01/13/18 1004 2 g at 01/13/18 1004 [MAR Hold due to Transfer] fentaNYL 20 mcg/mL iv infusion in NaCl 0.9% 100 mL 0-200 mcg/hr INTRAVENOUS CONTINUOUS Dorcas Mike Decoy Last Rate: 5 mL/hr at 01/27/18 1126 100 mcg/hr at 01/27/18 1126 [MAR Hold due to Transfer] NORepinephrine 16 mg in D5W 250 mL (LEVOPHED) 0-30 mcg/min INTRAVENOUS CONTINUOUS Dionicio (Res) Stevens Last Rate: 14.06 mL/hr at 01/27/18 1136 15 mcg/min at 01/27/18 1136 [MAR Hold due to Transfer] Chlorhexidine Gluconate 0.12 % 15 mL (PERIDEX) 15 mL ORAL q 12 H Elder Granda 15 mL at 01/27/18 0855 Allergies: ALLERGIES No Known Allergies DOS EXAM: Adequate NPO status: Yes Anesthetic risks, benefits, alternatives, personnel and consent discussed: Yes Patient agrees to proceed: Yes Previous Anesthesia: No history of adverse event. Airway Assessment: Pt on mechanical ventilation via ETT in place. Symptoms of Sleep Apnea: N/A Dentition: Not examined Additional Physical Exam: Lungs: Coarse sounds Cardiac: normal S1 and S2; no rubs, no murmurs, and no gallops Additional Pertinent Findings: N/A Blood Products: Not anticipated for this procedure. Anesthetic Plan: General, Standard ASA Monitors Pain Management Plan: Parenteral or Oral ASA Class: 4 Other Medical Problems: None Chronic Beta Lyric medication administered within 24 hours: N/A I have interviewed and examined the patient. I have reviewed the medical record and/or the pre-anesthesia evaluation, pertinent labs, and test results. Significant changes in the patient's condition since the History and Physical, not otherwise documented in primary service progress notes: No This contains updated information obtained within 48 hours of Surgery/Procedure. SIGNATURE: Derian Barlow MD PATIENT NAME: Naveen Akins DATE: January 27, 2018 TIME: 1:33 PM CSN: [id number] NUTRITION Observed: 01/27/2018 Status: COMPLETED Source: [place] 11:39 AM CLINIC OTHER CAMPUS REPOSITORY [facility] ID: [id number] Author: Viry Mosher RD Service: NST-Nutrition Support Team Author Type: Registered Dietitian Type: Nutrition Filed: 01/27/2018 11:55 AM Note Text: Attestation signed by Perla Dudley at 01/27/2018 10:15 PM Discussed with the RD and agree with RD's findings and plan as documented in the RD's note. Cont TPN for now Trach and PEG today Perla Dudley MD NUTRITION SUPPORT TEAM TOPIC: NUTRITION SUPPORT TEAM PROGRESS NOTE PATIENT NAME: Naveen Akins DATE OF : 1940 DATE: 01/27/2018 Nutritional Status: NO MALNUTRITION IDENTIFIED per RD 01/16/18 ? ? NUTRITION CARE PLAN: ? Problem, Etiology and Signs/Symptoms: Altered GI function related to potential ileus?as evidenced by lack of bowel sounds, distended abdomen, and hypotension. ? NST consult 01/16/18 for TPN support ? Interval History: LOS d 15, tolerating TPN, TF off, planning Peg and Trach today, NPO/NGT Assessment: 77 year old male with Ruptured AAA s/p Emergent Repair, takeback washout, repair of serosal tears x2, on 01/12, hemorrhagic shock, acute resp failure with pulm edema, TERENCE, SVT s/p Third Look Laparotomy and?washout on 01/14, fourth look, washout, vac change on 01/16 ?remains on vent, continues on CRRT 01/19 ?X lap, wash out, partial fascial closure, wound vac change 01/20 pressors weaned off Remains on diprivan gtt 01/20 rt thoracentesis- breathing better 01/21 limited abdominal x lap and closure 01/22 levo at pm restarted 01/23 neuro consult, ? plans for trach/Peg 01/24 new femoral HD line per nephrology, working good 01/25 + emesis 01/26 started on Zosyn for GNR ( sputum) , TF off 01/27 plans for Peg/Trach ? ? Tmax: 37.4 WBC: 8.91 Edema: 3+ UE, LE Lines: Art Line, Quad lumen, HD cath, all WNL Lytes: reviewed PAB: Decreased to 17.0 WT: ?82.2?kg ( down from 104 kg) GFR: 41.13 Trig : improved to 352, off diprivan and lipids in TPN--> recheck Trig on 01/30/18 Recommendations: TPN renewed: increased NACL ? TPN script: 1.5?L /24 hrs providing 1760 calories ( 21?kcals/kg ABW 84?kg) and 90 gms pro ( ~ 1.0 gms/kg ABW 84?kg) per day ? CHO:insulin ratio is ?9.1:1?, with 412 ?gms CHO in TPN , 45 units in TPN bag ? Resume TF as able Collaborated with Dr Dudley and orders written. Vitals: Temperature Max in 24 hours: Temp (24hrs), Av.7 ?C (98.1 ?F), Min:36.1 ?C (97 ?F), Max:37.3 ?C (99.1 ?F) Current Vital Signs: BP 99/55 Pulse 100 Temp 36.4 ?C (97.5 ?F) Resp 18 Ht 172.7 cm (5' 8) Wt 82.2 kg (181 lb 3.5 oz) SpO2 99% BMI 27.55 kg/m? Current Weight: Weight: 82.2 kg (181 lb 3.5 oz) Intake AND Output: Intake/Output Summary (Last 24 hours) at 01/27/18 1139 Last data filed at 01/27/18 1100 Gross per 24 hour Intake 1928.4 ml Output 2303 ml Net -374.6 ml Laboratory Data: Recent Labs 01/27/18 1050 01/27/18 0530 01/26/18 2345 01/26/18 0415 NA 139 139 137 < > 137 K 3.9 4.1 4.6 < > 4.5 CHLOR 104 105 106 < > 105 CO2 26 27 25 < > 24 CREAT 1.63* 1.42* 1.41* < > 1.57* BUN 48* 42* 42* < > 48* GLUC 157* 158* 156* < > 213* P 3.1 2.8 3.0 < > 3.1 TPROT -- -- -- -- 5.3* ALB 1.1* 1.1* 1.1* < > 1.3* MG 2.4 2.4 2.4 < > 2.6 CA 7.2* 7.3* 7.4* < > 7.8* < > = values in this interval not displayed. Recent Labs 01/26/18 1050 PREALB 17.0* Viry Mosher, RD, LD, CNSC Pager: [phone] Increments: 3 PROGRESS Observed: 01/27/2018 Status: COMPLETED Source: [place] 11:25 AM CLINIC OTHER CAMPUS REPOSITORY O ID: [id number] Author: Troy Godoy Service: Nephrology Author Type: Physician Type: Progress Notes Filed: 01/27/2018 11:29 AM Note Text: Subjective. Going for trach and PEG today Last neuro note reviewed. ? Urine output, incontinent FiO2 minimal now Remains on TPN 01/27/18 0900 01/27/18 1000 01/27/18 1055 01/27/18 1100 BP: 99/55 Pulse: 102 101 100 100 Resp: Temp: TempSrc: SpO2: 100% 99% 98% 99% Weight: Height: No pallor No icterus No JVD Heart - S1 S2 Lungs - clear Abdomen - surgical wounds + LE - no edema, No cyanosis No rash CMP: Glucose 157 01/27/2018 BUN 48 01/27/2018 Creatinine 1.63 01/27/2018 Sodium 139 01/27/2018 Potassium 3.9 01/27/2018 Chloride 104 01/27/2018 CO2 26 01/27/2018 Protein, Total 5.3 01/26/2018 Albumin 1.1 01/27/2018 Calcium 7.2 01/27/2018 Alkaline Phosphatase 234 01/26/2018 Bilirubin, Total 7.5 01/26/2018 AST 87 01/26/2018 ALT 89 01/26/2018 Hemoglobin (g/dL) Date Value 11/14/2017 15.0 HGB (g/dL) Date Value 01/27/2018 9.4 Hematocrit (%) Date Value 01/27/2018 29.4 WBC (thou/cmm) Date Value 01/27/2018 8.91 Platelet Count (thou/cmm) Date Value 01/27/2018 119 Assessment/ Plan 1. Acute kidney injury on chronic kidney disease stage 3. Baseline SCr is 1.36 mg/dL on 11/14/17. CKD is likely due to nephrosclerosis related to PAD. TERENCE is 2/2 ischemic ATN from shock. Pt may be making more urine (difficult to quantify since he is incontinent). Still requiring pressors. Volume status actually looks ok. Will run even for now. CXR ok, minimal FiO2 requirements and PEEP for now. obilgate intake around 2L or so ? 2. Shock. Improved. Initially due to hemorrhagic shock-massive blood loss from ruptured AAA +/- adrenal insufficiency. Continue hydrocortisone. ? 5. Ruptured AAA. s/p repair 01/12/18. Management as per vascular surgery. ? 6. Acute hypoxic respiratory failure. Ventilator dependent. Vent management as per ICU. O>I with CRRT UF. ? 7. Encephalopathy. Neuro note reviewed Plan Change UF to even for now. Try to get off levophed as tolerated. will make plans to switch to IHD once he is consistently off levophed PROGRESS Observed: 01/27/2018 Status: COMPLETED Source: [place] 11:04 AM CLINIC OTHER CAMPUS REPOSITORY O ID: [id number] Author: Paulo TylerMeter Repair Shop Supervisor) Radu Service: Critical Care Author Type: Nurse Specialist Type: Progress Notes Filed: 01/27/2018 11:20 AM Note Text: MICU - PROGRESS NOTE SERVICE DATE: 01/27/2018 SERVICE TIME: 11:04 AM Admission Date: 01/12/2018 AGE: [age] year old LOS: 15 days Subjective REASON FOR ICU ADMISSION: Respiratory Failure Objective PROBLEMS: ACTIVE PROBLEM LIST Gallstone Pancreatitis Ruptured Abdominal Aortic Aneurysm (Aaa) (Hcc) Dic (Disseminated Intravascular Coagulation) (Hcc) Hemorrhagic Shock (Hcc) Acute Respiratory Failure (Hcc) Cardiac Arrest (Hcc) Hypernatremia Hypokalemia Hypomagnesemia Hypophosphatemia Hyperchloremia Encephalopathy Aaa (Abdominal Aortic Aneurysm, Ruptured) (Hcc) Obesity, Class I, Bmi 30-34.9 PAST MEDICAL HISTORY Diagnosis Date - DIC (disseminated intravascular coagulation) (HCC) 01/12/2018 PAST SURGICAL HISTORY Procedure Laterality Date - LAP CHOLECYSTECT/CHOLANGIOGRAPHY 05-28-09 - REPAIR UMBILICAL NATAN,5+Y/O,REDUC 05-28-09 Social History Marital status: Spouse name: Shelly Years of education: 11 Number of children: 4 Occupational History 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 BP 99/55 Pulse 100 Temp (Src) 97.5 (Axillary) Resp 18 Ht 5' 8 (1.73m) Wt 181 lb 3.5 oz (82.2kg) SpO2 99% BMI 27.56 kg/(m2). Temp (24hrs), Av.7 ?C (98.1 ?F), Min:36.1 ?C (97 ?F), Max:37.3 ?C (99.1 ?F) NET FLUID BALANCE Intake/Output Summary (Last 24 hours) at 01/27/18 1104 Last data filed at 01/27/18 0800 Gross per 24 hour Intake 1608.5 ml Output 2303 ml Net -694.5 ml MEDICATIONS Current Facility-Administered Medications: Parenteral Nutrition - Adult INTRAVENOUS ONCE TPN (1800 START) ipratropium-albuterol 3 mL nebulizer solution (DUONEB) 3 mL INHALATION q 4 H budesonide 0.5 mg/2 mL 0.5 mg (PULMICORT) 0.5 mg INHALATION BID hydrocortisone sodium succinate (PF) 25 mg injection (Solu- CORTEF) 25 mg INTRAVENOUS q 12 H metoclopramide HCl 5 mg injection (REGLAN) 5 mg INTRAVENOUS q 6 H pantoprazole 40 mg injection (PROTONIX) 40 mg INTRAVENOUS BID AC (0600/1600) piperacillin-tazobactam 3.375 g in dextrose (iso-osmotic) 50 mL (ZOSYN) 3.375 g INTRAVENOUS q 6 H midazolam 100 mg in D5W 100 mL (VERSED) 1-10 mg/hr INTRAVENOUS CONTINUOUS docusate sodium oral liquid 100 mg/10 mL (DIOCTO,COLACE) 100 mg OROGASTRIC BID senna leaf extract 176 mg/5 mL 528 mg 15 mL OROGASTRIC BID carboxymethylcellulose sodium 1-2 Drop (CELLUVISC) 1-2 Drop BOTH EYES PRN polyvinyl alcohol-povidone 1.4-0.6 % 1 Drop (REFRESH) 1 Drop BOTH EYES QID PRN heparin 1,000 unit/mL 4,000 Units injection 4,000 Units INTRAVENOUS 3 Times weekly with dialysis heparin 5,000 Units injection 5,000 Units SUBCUTANEOUS q 12 H NaCl 0.9% 1,000 mL iv bolus 1,000 mL INTRAVENOUS PRN DIALYSIS prismaSOL BGK 4 K / 2.5 mEq Ca/Liter 5,000 mL 5,000 mL HEMODIALYSIS continuous (no dispense) prismaSOL BGK 4 K / 2.5 mEq Ca/Liter 5,000 mL 5,000 mL HEMODIALYSIS continuous (no dispense) prismaSOL BGK 4 K / 2.5 mEq Ca/Liter 5,000 mL 5,000 mL HEMODIALYSIS continuous (no dispense) dextrose 40 % 15 g 15 g ORAL PRN Or glucagon 1 mg injection (GLUCAGEN) 1 mg INTRAMUSCULAR PRN Or dextrose 50% in water 25 mL syringe 12.5 g INTRAVENOUS PRN magnesium sulfate 1 g in D5W 100 mL 1 g INTRAVENOUS PRN magnesium sulfate in water 2 g in sterile water 50 ml 2 g INTRAVENOUS PRN fentaNYL 20 mcg/mL iv infusion in NaCl 0.9% 100 mL 0-200 mcg/hr INTRAVENOUS CONTINUOUS NORepinephrine 16 mg in D5W 250 mL (LEVOPHED) 0-30 mcg/min INTRAVENOUS CONTINUOUS Chlorhexidine Gluconate 0.12 % 15 mL (PERIDEX) 15 mL ORAL q 12 H Lines, Drains, and Airways Line Arterial Line 01/19/18 0840 Arterial Line Right Radial 8 days Central Line Quadruple Lumen 01/19/18 1056 Right Neck 8 days Dialysis / Apheresis Double Lumen 01/24/18 1400 Non-tunneled Right Groin 2 days Drain GI Feed/Drain 01/12/18 0100 15 days Drain/Tube 01/19/18 1015 Midline Abdomen 8 days Airway Airway Endotracheal Tube 01/12/18 1138 14 days PHYSICAL EXAM PERFORMED: Cardiovascular: Regular tachycardia Respiratory: Reduced breath sounds bilat and Rhonchi bilat %FIO2 Min: 40 Max: 40 Abdomen: Distended Extremities: Edema- Yes Generalized Neurologic: Unresponsive Respiratory/Nursing Documentation: O2 Therapy: Ventilator (01/27/18 1055) Invasive Ventilator Mode: Pressure Regulated Volume Control (01/27/18 1055) Set Ventilator Respiratory Rate (BPM): 18 (01/27/18 1055) Total Respiratory Rate (BPM): 23 (01/27/18 1055) Tidal Volume Set (mL): 480 (01/27/18 1055) Exhaled Tidal Volume (mL): 514 (01/27/18 1055) Minute Volume (L): 8.8 (01/27/18 1055) Peak Inspiratory Pressure (cm H2O): 14 (01/27/18 1055) PEEP/CPAP (cm H2O): 5 (01/27/18 1055) HEMODYNAMIC DATA: Reviewed NUTRITION: Enteral Feeds: TPN DATA: Diagnostic tests reviewed for today's visit, films/specimens were personally reviewed by me: Most recent labs and imaging results. LABS: Recent Labs 01/27/18 0530 01/26/18 0415 WBC 8.91 -- 13.71* RBC 3.30* -- 3.94* HB 9.4* -- 11.3* HCT 29.4* -- 34.3* MCV 89.1 -- 87.1 PLT 119* -- 135* GLUC 158* < > 213* BUN 42* < > 48* CREAT 1.42* < > 1.57* NA 139 < > 137 K 4.1 < > 4.5 CHLOR 105 < > 105 CO2 27 < > 24 TPROT -- -- 5.3* ALB 1.1* < > 1.3* CA 7.3* < > 7.8* ALKPHOS -- -- 234* TBILI -- -- 7.5* AST -- -- 87* ALT -- -- 89* MG 2.4 < > 2.6 < > = values in this interval not displayed. ABG: Recent Labs 01/25/18 1600 01/25/18 0425 01/24/18 2230 PH 7.478* 7.466* 7.443 PO2 79.2* 78.4* 77.4* PCO2 28.3* 31.4* 30.2* Assessment/Plan IMPRESSION: Critical Care Documentation: The patient has the following organ/system impairment(s): 1.Acute hypoxic respiratory failure/ARDS/Bilat pleuaral effusions-remains intubated on 40% FIO2 2. Ruptured AAA ?Sp repair-Wound closed vac in place draining sm amt serosanguinous drainage 3.SP cardiac arrest 4.Shock-Levophed support at 14mcg 5. Pt is nonresponsive-even to noxious stimuli-Encephalopathy 6.Thrombocytopenia-platelet 119,000 7.Nutritional support-TPN 8.Sinus tachycardia-SVT resolved-frequent PACs this AM 9.TERENCE on CKD-on CRRT 10. Fentanyl drip at 150mcg/kh for pain control 11. Ileus/gastroparesis 12. Acute blood loss anemia-dropped 2 Gms since yesterday 13.Hyperlipidemia improving 14.Trach /PEG today This patient has a high probability of sudden, clinically significant deterioration, which requires the highest level of physician preparedness to intervene urgently. I managed/supervised life or organ supporting interventions that required frequent physician assessment. I devoted my full attention to the direct care of this patient for the amount of time indicated below. Time I spent with family or surrogate(s) is included only if the patient was incapable of providing the necessary information or participating in medical decision making. Time devoted to teaching is not included. Discussed with staff/patient/family Time spent providing critical care services: 40 minutes excluding procedures. SIGNATURE: Paulo Lovelace APRN.MAINTENANCE TEAM MEMBER PATIENT NAME: Naveen Akins DATE: January 27, 2018 TIME: 11:04 AM NURSING PROG Observed: 01/27/2018 Status: COMPLETED Source: [place] 10:58 AM [facility] OTHER CAMPUS REPOSITORY [facility] ID: [id number] Author: Janell (Rn) MAGALY Fabian Service: Nursing Author Type: Registered Nurse Type: Nursing Progress Note Filed: 01/27/2018 1:01 PM Note Text: Nursing Progress Note Patient Name: Naveen Akisn Patient Location: [place] [address] [address]* Daily Note:0845: Pre-surg nurse called for report on patient, plan for PEG tube placement and Trach today by 10am. Nurse said that the team will be over in 5 minutes for huddle, prepare patient. CRRT on hold for OR, blood was returned to patient, line instilled with heparin per protocol. 1030: spoke with dr. Sloan from surgery regarding delay in patient going to OR, said that the first vascular case is taking longer than expected, Mr. Akins is still the next case. Dr. Godoy at bedside, discussed delay, MD said to run patient even with CRRT when he arrives back from the OR. Plan to wean through the weekend. 1200: OR team arrived, pre-surgical huddle performed at bedside with daughters present. 1215: Patient taken to OR. 1230: Notified dialysis that patient will need CRRT initiated post-surg, left voicemail on line that I anticipate patient back after 1300. This note was completed by: Janell Fabian RN PROGRESS Observed: 01/27/2018 Status: COMPLETED Source: [place] 10:55 AM [facility] OTHER CAMPUS REPOSITORY O ID: [id number] Author: Dorcas Palafox Service: Critical Care Author Type: Physician Type: Progress Notes Filed: 01/27/2018 11:21 AM Note Text: MICU - PROGRESS NOTE SERVICE DATE: 01/27/2018 SERVICE TIME: 10:56 AM Admission Date: 01/12/2018 AGE: [age] year old LOS: 15 days Subjective REASON FOR ICU ADMISSION: Pneumonia, Renal Failure, Respiratory Failure, Sepsis, Shock, S/P Surgery and Encephalopathy. Sedated and unresponsive. Versed at 5mg/hr. Fentanyl 150mcg/hr. Remains on CVVH. VENT: PRVC-18 Vt-450 P-5 FIO2 40% with Ve-9l/min SaO2 98% Levophed at 14mcg/min Objective VITAL SIGNS (last 24hrs min/max): Temp Av.7 ?C (98.1 ?F) Min: 36.1 ?C (97 ?F) Max: 37.3 ?C (99.1 ?F) Pulse Av.7 Min: 82 Max: 129 Arterial BP 1 Min: 87/48 Max: 155/75 Cuff BP Min: 99/55 Max: 99/55 Pain Score: 0/10 Vital signs reviewed. BP 99/55 Pulse 100 Temp (Src) 97.5 (Axillary) Resp 18 Ht 5' 8 (1.73m) Wt 181 lb 3.5 oz (82.2kg) SpO2 98% BMI 27.56 kg/(m2). Temp (24hrs), Av.7 ?C (98.1 ?F), Min:36.1 ?C (97 ?F), Max:37.3 ?C (99.1 ?F) NET FLUID BALANCE Intake/Output Summary (Last 24 hours) at 01/27/18 1056 Last data filed at 01/27/18 0800 Gross per 24 hour Intake 1608.5 ml Output 2473 ml Net -864.5 ml MEDICATIONS Current Facility-Administered Medications: Parenteral Nutrition - Adult INTRAVENOUS ONCE TPN (1800 START) ipratropium-albuterol 3 mL nebulizer solution (DUONEB) 3 mL INHALATION q 4 H budesonide 0.5 mg/2 mL 0.5 mg (PULMICORT) 0.5 mg INHALATION BID hydrocortisone sodium succinate (PF) 25 mg injection (Solu- CORTEF) 25 mg INTRAVENOUS q 12 H metoclopramide HCl 5 mg injection (REGLAN) 5 mg INTRAVENOUS q 6 H pantoprazole 40 mg injection (PROTONIX) 40 mg INTRAVENOUS BID AC (0600/1600) piperacillin-tazobactam 3.375 g in dextrose (iso-osmotic) 50 mL (ZOSYN) 3.375 g INTRAVENOUS q 6 H midazolam 100 mg in D5W 100 mL (VERSED) 1-10 mg/hr INTRAVENOUS CONTINUOUS docusate sodium oral liquid 100 mg/10 mL (DIOCTO,COLACE) 100 mg OROGASTRIC BID senna leaf extract 176 mg/5 mL 528 mg 15 mL OROGASTRIC BID carboxymethylcellulose sodium 1-2 Drop (CELLUVISC) 1-2 Drop BOTH EYES PRN polyvinyl alcohol-povidone 1.4-0.6 % 1 Drop (REFRESH) 1 Drop BOTH EYES QID PRN heparin 1,000 unit/mL 4,000 Units injection 4,000 Units INTRAVENOUS 3 Times weekly with dialysis heparin 5,000 Units injection 5,000 Units SUBCUTANEOUS q 12 H NaCl 0.9% 1,000 mL iv bolus 1,000 mL INTRAVENOUS PRN DIALYSIS prismaSOL BGK 4 K / 2.5 mEq Ca/Liter 5,000 mL 5,000 mL HEMODIALYSIS continuous (no dispense) prismaSOL BGK 4 K / 2.5 mEq Ca/Liter 5,000 mL 5,000 mL HEMODIALYSIS continuous (no dispense) prismaSOL BGK 4 K / 2.5 mEq Ca/Liter 5,000 mL 5,000 mL HEMODIALYSIS continuous (no dispense) dextrose 40 % 15 g 15 g ORAL PRN Or glucagon 1 mg injection (GLUCAGEN) 1 mg INTRAMUSCULAR PRN Or dextrose 50% in water 25 mL syringe 12.5 g INTRAVENOUS PRN magnesium sulfate 1 g in D5W 100 mL 1 g INTRAVENOUS PRN magnesium sulfate in water 2 g in sterile water 50 ml 2 g INTRAVENOUS PRN fentaNYL 20 mcg/mL iv infusion in NaCl 0.9% 100 mL 0-200 mcg/hr INTRAVENOUS CONTINUOUS NORepinephrine 16 mg in D5W 250 mL (LEVOPHED) 0-30 mcg/min INTRAVENOUS CONTINUOUS Chlorhexidine Gluconate 0.12 % 15 mL (PERIDEX) 15 mL ORAL q 12 H Lines, Drains, and Airways Line Arterial Line 01/19/18 0840 Arterial Line Right Radial 8 days Central Line Quadruple Lumen 01/19/18 1056 Right Neck 8 days Dialysis / Apheresis Double Lumen 01/24/18 1400 Non-tunneled Right Groin 2 days Drain GI Feed/Drain 01/12/18 0100 15 days Drain/Tube 01/19/18 1015 Midline Abdomen 8 days Airway Airway Endotracheal Tube 01/12/18 1138 14 days PHYSICAL EXAM PERFORMED: HEENT: Dried hemorrhagic ulcerations on lips. Secretions thick yellow. Oral Mucosa: Dry mucous membranes Feeding Tube: +OG tube with bilious drainage of 50ml/hr Eyes: Pupils unequal- OS 4mm and OD 3mm and both reactive. Neck: Unremarkable; No adenopathy or JVD Cardiovascular: Regular rhythm Respiratory: Coarse expiratory BSs and expiratory wheezes in the bases. %FIO2 Min: 40 Max: 40 Abdomen: Soft, Nontender and Occasional BSs on auscultation. Extremities: Edema- Yes and trace LE edema Peripheral Pulses- Present all extremities Capillary Refill- less than 3 seconds Skin: Abnormalities- No Neurologic: Sedated and obtunded. Respiratory/Nursing Documentation: O2 Therapy: Ventilator (01/27/18 0900) Invasive Ventilator Mode: Pressure Regulated Volume Control (01/27/18745) Set Ventilator Respiratory Rate (BPM): 18 (01/27/18745) Total Respiratory Rate (BPM): 26 (01/27/18745) Tidal Volume Set (mL): 480 (01/27/18745) Exhaled Tidal Volume (mL): 530 (01/27/18745) Minute Volume (L): 14.3 (01/27/18745) Peak Inspiratory Pressure (cm H2O): 16 (01/27/18745) PEEP/CPAP (cm H2O): 5 (01/27/18745) HEMODYNAMIC DATA: NUTRITION: Enteral Feeds: No NPO. On TPN at 62.5ml/hr DATA: Diagnostic tests reviewed for today's visit: Most recent labs and imaging results. LABS: Recent Labs 01/27/18 0530 01/26/18 0415 WBC 8.91 -- 13.71* RBC 3.30* -- 3.94* HB 9.4* -- 11.3* HCT 29.4* -- 34.3* MCV 89.1 -- 87.1 PLT 119* -- 135* GLUC 158* < > 213* BUN 42* < > 48* CREAT 1.42* < > 1.57* NA 139 < > 137 K 4.1 < > 4.5 CHLOR 105 < > 105 CO2 27 < > 24 TPROT -- -- 5.3* ALB 1.1* < > 1.3* CA 7.3* < > 7.8* ALKPHOS -- -- 234* TBILI -- -- 7.5* AST -- -- 87* ALT -- -- 89* MG 2.4 < > 2.6 < > = values in this interval not displayed. ABG: Recent Labs 01/25/18 1600 01/25/18 0425 01/24/18 2230 PH 7.478* 7.466* 7.443 PO2 79.2* 78.4* 77.4* PCO2 28.3* 31.4* 30.2* CULTURES: Sputum: Positive- Many MDR Enterobacter cloacae with absence of normal OP john.--01/24/18 Pleural Fluid cx negative from 01/20 CXR FINDINGS: 01/27: Multiple wires and tubes overlie the chest. ?There is an endotracheal tube in profile with the tracheal airway terminating above the kianna, an enteric tube extending into the stomach and a right internal jugular central venous catheter terminating in profile with the right atrium. ? There are bilateral perihilar and right infrahilar parenchymal opacities. ? The lateral costophrenic angles are clear. ? The cardiac and mediastinal silhouette appears stable. ? IMPRESSION: ? Bilateral parenchymal opacities, possible atelectasis or pneumonia. ? Life-support equipment as noted. Assessment/Plan PROBLEMS: ACTIVE PROBLEM LIST Gallstone Pancreatitis Ruptured Abdominal Aortic Aneurysm (Aaa) (Hcc) Dic (Disseminated Intravascular Coagulation) (Hcc) Hemorrhagic Shock (Hcc) Acute Respiratory Failure (Hcc) Cardiac Arrest (Hcc) Hypernatremia Hypokalemia Hypomagnesemia Hypophosphatemia Hyperchloremia Encephalopathy Aaa (Abdominal Aortic Aneurysm, Ruptured) (Hcc) Obesity, Class I, Bmi 30-34.9 1. Hypoxic VDRF with bilateral infiltrates now on CXR 2. MDR Enterobacter cloacae pneumonia +/- aspiration 3. Acute on chronic renal faiure on CVVH 4. Leukocytosis resolved 5. Thrombocytopenia--slowly downward platelets 6. Shock--no fever and WBC decreasing. ?Adrenal-related but not clear if he had adrenal insufficiency initially. 7. Moderate anemia--Hgb down 1.9gm today 8. Encephalopathy secondary to cardiac arrest and prolonged hypotension/metabolic issues. 9. S/P ruptured AAA 01/12 with multiple expl laps 10.S/P left thoracentesis 01/20 with negative cultures. 11.Ileus/Gastroparesis intolerant of tube feeds on 01/25. PLANS FOR TODAY: CRITICAL CARE PLAN: Antibiotics , Bronchodilators , Dialysis, Vasopressors, Ventilatory support , Steroids and Trach/PEG scheduled for today. Change ATBx to Merrem given resistance to Zosyn Increase Hydrocortisone back to 50mg q8h given shock Remains Full Code status per family request. Prognosis poor for full recovery. Continue TPN and holding enteral feeds. This patient has a high probability of sudden, clinically significant deterioration, which requires the highest level of physician preparedness to intervene urgently. I managed/supervised life or organ supporting interventions that required frequent physician assessment. I devoted my full attention to the direct care of this patient for the amount of time indicated below. Time I spent with family or surrogate(s) is included only if the patient was incapable of providing the necessary information or participating in medical decision making. Time devoted to teaching is not included. Patient Updated Yes Family Updated Yes Discussed with Staff Yes Time spent providing critical care services: 40 minutes excluding procedures. SIGNATURE: Dorcas Palafox MD PATIENT NAME: Naveen Akins DATE: January 27, 2018 TIME: 10:56 AM PAGER/CONTACT #: [phone] RENAL PANEL Collected: 01/27/2018 Status: F Source: [facility] 10:50 AM HEALTH SYSTEM REPOSITORY TYPE CODE TESTS RESULT OUT OF REFERENCE UNITS RANGE LAB NA(LOINC) 136-145 mEq/L Sodium Blood 139 LAB K(LOINC) 3.5-5.1 mEq/L Potassium Blood 3.9 LAB CL(LOINC) 98-107 mEq/L Chloride Blood 104 LAB CO2(LOINC) 21-32 mEq/L CO2 Blood 26 LAB GLU(LOINC) 70-99 mg/dL Glucose High Blood 157 LAB BUN(LOINC) 7-18 mg/dL BUN High Blood 48 LAB CREA(LOINC 0.67-1.17 mg/dL ) High Creatinine Blood 1.63 LAB CA(LOINC) 8.5-10.1 mg/dL Low Calcium Blood 7.2 LAB ALB(LOINC) 3.4-5.0 g/dL Low Albumin Blood 1.1 LAB PHOS(LOINC 2.5-4.9 mg/dL ) Phosphorus Blood 3.1 Performed By: #### RENAL #### [place] [address] MAGNESIUM BLOOD Collected: 01/27/2018 Status: F Source: [facility] 10:50 AM HEALTH SYSTEM REPOSITORY TYPE CODE TESTS RESULT OUT OF REFERENCE UNITS RANGE LAB MAG(LOINC) 1.6-2.6 mg/dL Magnesium Blood 2.4 Performed By: #### MAG #### [place] [address] CASE MANAGEM Observed: 01/27/2018 Status: COMPLETED Source: [place] 10:33 AM CLINIC OTHER CAMPUS REPOSITORY O ID: [id number] Author: Lupe (Rn) MAGALY Cheng Service: Care Management Author Type: Registered Nurse Type: Care Mgt Progress Note Filed: 01/27/2018 10:38 AM Note Text: CARE MANAGEMENT PROGRESS NOTE SERVICE DATE: 01/27/2018 SERVICE TIME: 10:34 AM LOS: 15 days FREEDOM OF CHOICE GIVEN: Financial Disclosure Provided The patient and/or family has been given the Provider List: Yes (LTACH choice list) Needs Prior to Discharge: Facility or Agency Choices;Accepting Facility;Discharge Transportation Chart reviewed. Spoke with patient's spouse Shelly and all of patient's children in the waiting area. OR today for trach/PEG. Lengthy discussion with patient's family on discharge planning. Anticipated LTACH level of care at discharge. Patient's family in agreement. LTACH choice list provided. Await choice. Will continue to follow clinical course for further DC planning needs. SIGNATURE: Lupe Cheng RN PATIENT NAME: Naveen Akins DATE: January 27, 2018 TIME: 10:34 AM PAGER/CONTACT #: [phone] PROGRESS Observed: 01/27/2018 Status: COMPLETED Source: [place] 9:40 AM [facility] REPOSITORY HNO ID: [id number] Author: Abbi (Rn) MAGALY Mtz Service: Wound Care Team Author Type: Registered Nurse Type: Progress Notes Filed: 01/27/2018 10:03 AM Note Text: WOUND CARE NURSE PROGRESS NOTE SERVICE DATE: 01/27/2018 SERVICE TIME: 0940 REASON FOR VISIT: Wound TIME SPENT (minutes): 30 Patient seen today by Josseline Magana, INDEPENDENT SALES REPRESENTATIVE-C, and siva knot cutter. Wound vac dressing to midline abdomen changed. Applied 3 white, 1 black, 150mmHg, continuous. Applied single layer xeroform, gauze, and ABD to skin tears to periwound. Wound bed clean. Retention sutures intact. Plan to change wound vac dressing Tuesday01/30/18. Documentation from Wound Expert can be found in scanned documents. SIGNATURE: Abbi Mtz RN CWOCN PATIENT NAME: Naveen Akins DATE: January 27, 2018 TIME: 10:01 AM CONTACT#: [id number] PROGRESS Observed: 01/27/2018 Status: COMPLETED Source: [place] 7:27 AM [facility] REPOSITORY HNO ID: [id number] Author: Ashu Menezes Service: General Surgery Author Type: Physician Type: Progress Notes Filed: 01/28/2018 5:50 PM Note Text: Emergency General Surgery Progress Note SERVICE DATE: 01/27/2018 Emergency General Surgery Service Pager: For questions or concerns Mon-Tue 6a-5p please page [phone]. After 5pm and on Weekends and Holidays, please page [phone] if in ICU or [phone] if on RNF. SUBJECTIVE: Weaned down on pressors. OG putting out about 50 cc/hr. Minimal outpt from wound vac. Otherwise NAEON. Tolerating diet DIET NPO Parenteral Nutrition - Adult OBJECTIVE: Vitals: Temp (24hrs), Av.8 ?C (98.2 ?F), Min:36.1 ?C (97 ?F), Max:37.3 ?C (99.1 ?F) BP 132/57 Pulse 106 Temp 36.2 ?C (97.2 ?F) (Axillary) Resp 15 Ht 172.7 cm (5' 8) Wt 82.2 kg (181 lb 3.5 oz) SpO2 100% BMI 27.55 kg/m? O2 Therapy: Ventilator IANDO: Date 01/26/18 07 - 01/27/1859 01/27/18 07 - 01/28/18 0659 Shift 6518-3743 1742-8523 9228-2097 24 Hour Total 9381-8610 1274-4105 4604-4851 24 Hour Total I N T A K E PO 0 0 Tube Feed Intake (GI Feed/Drain ) 0 0 IV 75.4 347.9 263.4 686.7 NS 0.9% 64.1 9 73.1 Zosyn IV 50 50 100 Fentanyl Volume 6.7 56.7 60 123.4 NORepinephrine Volume 13.4 181.9 102.3 297.6 Midazolam Volume 5.3 45.2 42.1 92.6 TPN/PPN 56 265.4 499.7 821.1 TPN 56 265.4 499.7 821.1 Irrigants 60 60 Irrigant/Flush Amount In (GI Feed/Drain ) 60 60 Shift Total 131.4 613.3 823.1 1567.8 O U T P U T Urine 0 0 50 50 Void (ml) 0 0 50 50 Emesis 0 0 Emesis (ml) 0 0 Drains 0 0 Negative Pressure: Output (mL) (Negative Pressure Wound Therapy 01/12/18 0749 Abdomen) 0 0 Tubes 100 350 435 885 Drain/Tube Output (Drain/Tube 01/19/18 1015 Midline Abdomen) 0 25 10 35 Output (GI Feed/Drain 01/12/18 010) 100 325 425 850 # of BMs Number of BMs 0 x 0 x 0 x 0 x Dialysis 976 090 268 0270 Dialysis Output (Ultrafiltration) 976 516 456 1194 Shift Total 1076 290 188 1066 Weight (kg) 84 84 82.2 82.2 82.2 82.2 82.2 82.2 MEDICATIONS Current Facility-Administered Medications: Parenteral Nutrition - Adult INTRAVENOUS ONCE TPN (1800 START) ipratropium-albuterol 3 mL nebulizer solution (DUONEB) 3 mL INHALATION q 4 H budesonide 0.5 mg/2 mL 0.5 mg (PULMICORT) 0.5 mg INHALATION BID hydrocortisone sodium succinate (PF) 25 mg injection (Solu- CORTEF) 25 mg INTRAVENOUS q 12 H metoclopramide HCl 5 mg injection (REGLAN) 5 mg INTRAVENOUS q 6 H pantoprazole 40 mg injection (PROTONIX) 40 mg INTRAVENOUS BID AC (0600/1600) piperacillin-tazobactam 3.375 g in dextrose (iso-osmotic) 50 mL (ZOSYN) 3.375 g INTRAVENOUS q 6 H midazolam 100 mg in D5W 100 mL (VERSED) 1-10 mg/hr INTRAVENOUS CONTINUOUS docusate sodium oral liquid 100 mg/10 mL (DIOCTO,COLACE) 100 mg OROGASTRIC BID senna leaf extract 176 mg/5 mL 528 mg 15 mL OROGASTRIC BID carboxymethylcellulose sodium 1-2 Drop (CELLUVISC) 1-2 Drop BOTH EYES PRN polyvinyl alcohol-povidone 1.4-0.6 % 1 Drop (REFRESH) 1 Drop BOTH EYES QID PRN heparin 1,000 unit/mL 4,000 Units injection 4,000 Units INTRAVENOUS 3 Times weekly with dialysis heparin 5,000 Units injection 5,000 Units SUBCUTANEOUS q 12 H NaCl 0.9% 1,000 mL iv bolus 1,000 mL INTRAVENOUS PRN DIALYSIS prismaSOL BGK 4 K / 2.5 mEq Ca/Liter 5,000 mL 5,000 mL HEMODIALYSIS continuous (no dispense) prismaSOL BGK 4 K / 2.5 mEq Ca/Liter 5,000 mL 5,000 mL HEMODIALYSIS continuous (no dispense) prismaSOL BGK 4 K / 2.5 mEq Ca/Liter 5,000 mL 5,000 mL HEMODIALYSIS continuous (no dispense) dextrose 40 % 15 g 15 g ORAL PRN Or glucagon 1 mg injection (GLUCAGEN) 1 mg INTRAMUSCULAR PRN Or dextrose 50% in water 25 mL syringe 12.5 g INTRAVENOUS PRN magnesium sulfate 1 g in D5W 100 mL 1 g INTRAVENOUS PRN magnesium sulfate in water 2 g in sterile water 50 ml 2 g INTRAVENOUS PRN fentaNYL 20 mcg/mL iv infusion in NaCl 0.9% 100 mL 0-200 mcg/hr INTRAVENOUS CONTINUOUS NORepinephrine 16 mg in D5W 250 mL (LEVOPHED) 0-30 mcg/min INTRAVENOUS CONTINUOUS Chlorhexidine Gluconate 0.12 % 15 mL (PERIDEX) 15 mL ORAL q 12 H Labs: Recent Labs 01/27/18 0530 01/26/18 2345 01/26/18 0415 01/25/18 1600 01/25/18 0425 NA 139 137 < > 137 < > -- 139 K 4.1 4.6 < > 4.5 < > -- 4.2 CHLOR 105 106 < > 105 < > -- 107 CO2 27 25 < > 24 < > -- 20* BUN 42* 42* < > 48* < > -- 58* CREAT 1.42* 1.41* < > 1.57* < > -- 1.68* GLUC 158* 156* < > 213* < > -- 147* ANION -- -- -- 13 -- -- 16 CA 7.3* 7.4* < > 7.8* < > -- 7.4* MG 2.4 2.4 < > 2.6 < > -- 2.6 P 2.8 3.0 < > 3.1 < > -- 2.9 ALB 1.1* 1.1* < > 1.3* < > -- -- AST -- -- -- 87* -- -- -- ALT -- -- -- 89* -- -- -- ALKPHOS -- -- -- 234* -- -- -- TBILI -- -- -- 7.5* -- -- -- WBC 8.91 -- -- 13.71* < > -- 15.78* HB 9.4* -- -- 11.3* < > -- 10.4* HCT 29.4* -- -- 34.3* < > -- 31.7* PLT 119* -- -- 135* < > -- 145 PH -- -- -- -- -- 7.478* 7.466* PCO2 -- -- -- -- -- 28.3* 31.4* PO2 -- -- -- -- -- 79.2* 78.4* BE -- -- -- -- -- -2.2 -1.0 < > = values in this interval not displayed. Exam: NEURO: spontaneous eye opening HEENT: intuabted LUNGS: stable on vent CARDIAC: Regular rate and rhythm as above ABDOMEN: wound vac in place, abd firm ASSESSMENT AND PLAN: Active Hospital Problems Diagnosis Date Noted - Ruptured abdominal aortic aneurysm (AAA) ([facility]) 01/12/2018 - Obesity, Class I, BMI 30-34.9 01/16/2018 - Encephalopathy 01/13/2018 - DIC (disseminated intravascular coagulation) ([facility]) 01/12/2018 - Hemorrhagic shock ([facility]) 01/12/2018 - Acute respiratory failure ([facility]) 01/12/2018 - Cardiac arrest ([facility]) 01/12/2018 - Hypernatremia 01/12/2018 - Hypokalemia 01/12/2018 - Hypomagnesemia 01/12/2018 - Hypophosphatemia 01/12/2018 - Hyperchloremia 01/12/2018 - AAA (abdominal aortic aneurysm, ruptured) ([facility]) 01/12/2018 Overview Note: Added automatically from request for surgery [id number] 77 year old male with Ruptured AAA s/p Emergent Repair, takeback washout, repair of serosal tears x2, on 01/12, hemorrhagic shock, acute resp failure with pulm edema, TERENCE, SVT, s/p Third Look Laparotomy and?washout on 01/14, fourth look, washout, vac change on 01/16, Partial fascial closure on 01/19 - DIET NPO Parenteral Nutrition - Adult - OR today for trach/PEG - cont management per ICU SIGNATURE: Hermelinda Ferrell MD PATIENT NAME: Naveen Akins DATE: January 27, 2018 TIME: 7:27 AM Pager: see below Emergency General Surgery Service Pager: For questions or concerns Mon-Fri 6a-5p please page [phone]. After 5pm and on Weekends and Holidays, please page [phone] if in ICU or [phone] if on RNF. Attending Note I evaluated the patient and personally participated in the coleman components. I agree with the resident's findings and plan as documented and have discussed the case and management of the patient's care with the resident. To OR for PEG as above. Ashu Menezes MD Department of General Surgery Section of Trauma, Surgery Critical Care, and Acute Care Surgery Delayed entry PHERESED PLATELETS Collected: 01/27/2018 Status: F Source: [facility] 7:25 AM HEALTH SYSTEM REPOSITORY TYPE CODE TESTS RESULT OUT OF REFERENCE UNITS RANGE LAB PPHR(LOINC) Pheresed Plts Done unit 1 Performed By: #### PPHRS #### [place] [address] RBC PRODUCTS Collected: 01/27/2018 Status: F Source: [facility] 7:25 AM HEALTH SYSTEM REPOSITORY TYPE CODE TESTS RESULT OUT OF REFERENCE UNITS RANGE LAB UNIT1(LOINC ) Xmatch Unit 1 see below Result Comment: Compatible LAB UNIT2(LOINC) Xmatch Unit 2 see below Result Comment: Compatible Performed By: #### RBCPS #### [place] [address] PROGRESS Observed: 01/27/2018 Status: COMPLETED Source: [place] 6:28 AM [facility] OTHER CAMPUS REPOSITORY O ID: [id number] Author: Dionicio (Res) Rodney Service: Vascular Surgery Author Type: Resident Type: Progress Notes Filed: 01/27/2018 8:32 AM Note Text: Vascular Surgery Progress Note SERVICE DATE: 01/27/2018 Vascular AND Thoracic Surgery Service Pager: For questions or concerns Mon-Fri 6a-5p please page [phone]. After 5pm and on Weekends and Holidays, please page [phone] if in ICU or [phone] if on RNF. Subjective SUBJECTIVE: NAEON Diet: DIET NPO Parenteral Nutrition - Adult Objective OBJECTIVE: Vitals: Temp (24hrs), Av.8 ?C (98.2 ?F), Min:36.1 ?C (97 ?F), Max:37.3 ?C (99.1 ?F) BP 132/57 Pulse 106 Temp 36.2 ?C (97.2 ?F) (Axillary) Resp 15 Ht 172.7 cm (5' 8) Wt 82.2 kg (181 lb 3.5 oz) SpO2 100% BMI 27.55 kg/m? O2 Therapy: Ventilator IANDO: Date 01/26/18 0700 - 08/65801/27/18 0700 - 01/28/18 0659 Shift 2786-6002 8207-4114 8040-7039 24 Hour Total 8830-8716 5898-7657 3365-6710 24 Hour Total I N T A K E PO 0 0 Tube Feed Intake (GI Feed/Drain ) 0 0 IV 75.4 347.9 263.4 686.7 NS 0.9% 64.1 9 73.1 Zosyn IV 50 50 100 Fentanyl Volume 6.7 56.7 60 123.4 NORepinephrine Volume 13.4 181.9 102.3 297.6 Midazolam Volume 5.3 45.2 42.1 92.6 TPN/PPN 56 265.4 499.7 821.1 TPN 56 265.4 499.7 821.1 Irrigants 60 60 Irrigant/Flush Amount In (GI Feed/Drain ) 60 60 Shift Total 131.4 613.3 823.1 1567.8 O U T P U T Urine 0 0 50 50 Void (ml) 0 0 50 50 Emesis 0 0 Emesis (ml) 0 0 Drains 0 0 Negative Pressure: Output (mL) (Negative Pressure Wound Therapy 01/12/18 0749 Abdomen) 0 0 Tubes 100 350 435 885 Drain/Tube Output (Drain/Tube 01/19/18 1015 Midline Abdomen) 0 25 10 35 Output (GI Feed/Drain 01/12/18 0100) 100 325 425 850 # of BMs Number of BMs 0 x 0 x 0 x 0 x Dialysis 976 752 193 5193 Dialysis Output (Ultrafiltration) 976 505 751 8877 Shift Total 1076 342 756 2640 Weight (kg) 84 84 82.2 82.2 82.2 82.2 82.2 82.2 MEDICATIONS Current Facility-Administered Medications: Parenteral Nutrition - Adult INTRAVENOUS ONCE TPN (1800 START) ipratropium-albuterol 3 mL nebulizer solution (DUONEB) 3 mL INHALATION q 4 H budesonide 0.5 mg/2 mL 0.5 mg (PULMICORT) 0.5 mg INHALATION BID hydrocortisone sodium succinate (PF) 25 mg injection (Solu- CORTEF) 25 mg INTRAVENOUS q 12 H metoclopramide HCl 5 mg injection (REGLAN) 5 mg INTRAVENOUS q 6 H pantoprazole 40 mg injection (PROTONIX) 40 mg INTRAVENOUS BID AC (0600/1600) piperacillin-tazobactam 3.375 g in dextrose (iso-osmotic) 50 mL (ZOSYN) 3.375 g INTRAVENOUS q 6 H midazolam 100 mg in D5W 100 mL (VERSED) 1-10 mg/hr INTRAVENOUS CONTINUOUS docusate sodium oral liquid 100 mg/10 mL (DIOCTO,COLACE) 100 mg OROGASTRIC BID senna leaf extract 176 mg/5 mL 528 mg 15 mL OROGASTRIC BID carboxymethylcellulose sodium 1-2 Drop (CELLUVISC) 1-2 Drop BOTH EYES PRN polyvinyl alcohol-povidone 1.4-0.6 % 1 Drop (REFRESH) 1 Drop BOTH EYES QID PRN heparin 1,000 unit/mL 4,000 Units injection 4,000 Units INTRAVENOUS 3 Times weekly with dialysis heparin 5,000 Units injection 5,000 Units SUBCUTANEOUS q 12 H NaCl 0.9% 1,000 mL iv bolus 1,000 mL INTRAVENOUS PRN DIALYSIS prismaSOL BGK 4 K / 2.5 mEq Ca/Liter 5,000 mL 5,000 mL HEMODIALYSIS continuous (no dispense) prismaSOL BGK 4 K / 2.5 mEq Ca/Liter 5,000 mL 5,000 mL HEMODIALYSIS continuous (no dispense) prismaSOL BGK 4 K / 2.5 mEq Ca/Liter 5,000 mL 5,000 mL HEMODIALYSIS continuous (no dispense) dextrose 40 % 15 g 15 g ORAL PRN Or glucagon 1 mg injection (GLUCAGEN) 1 mg INTRAMUSCULAR PRN Or dextrose 50% in water 25 mL syringe 12.5 g INTRAVENOUS PRN magnesium sulfate 1 g in D5W 100 mL 1 g INTRAVENOUS PRN magnesium sulfate in water 2 g in sterile water 50 ml 2 g INTRAVENOUS PRN fentaNYL 20 mcg/mL iv infusion in NaCl 0.9% 100 mL 0-200 mcg/hr INTRAVENOUS CONTINUOUS NORepinephrine 16 mg in D5W 250 mL (LEVOPHED) 0-30 mcg/min INTRAVENOUS CONTINUOUS Chlorhexidine Gluconate 0.12 % 15 mL (PERIDEX) 15 mL ORAL q 12 H Labs: Recent Labs 01/27/18 0530 01/26/18 2345 01/26/18 1800 01/26/18 0415 01/25/18 1600 01/25/18 0425 NA -- 137 138 < > 137 < > -- 139 K -- 4.6 4.4 < > 4.5 < > -- 4.2 CHLOR -- 106 104 < > 105 < > -- 107 CO2 -- 25 23 < > 24 < > -- 20* BUN -- 42* 45* < > 48* < > -- 58* CREAT -- 1.41* 1.49* < > 1.57* < > -- 1.68* GLUC -- 156* 219* < > 213* < > -- 147* ANION -- -- -- -- 13 -- -- 16 CA -- 7.4* 7.6* < > 7.8* < > -- 7.4* MG -- 2.4 2.4 < > 2.6 < > -- 2.6 P -- 3.0 3.1 < > 3.1 < > -- 2.9 ALB -- 1.1* 1.2* < > 1.3* < > -- -- AST -- -- -- -- 87* -- -- -- ALT -- -- -- -- 89* -- -- -- ALKPHOS -- -- -- -- 234* -- -- -- TBILI -- -- -- -- 7.5* -- -- -- WBC 8.91 -- -- -- 13.71* < > -- 15.78* HB 9.4* -- -- -- 11.3* < > -- 10.4* HCT 29.4* -- -- -- 34.3* < > -- 31.7* PLT 119* -- -- -- 135* < > -- 145 PH -- -- -- -- -- -- 7.478* 7.466* PCO2 -- -- -- -- -- -- 28.3* 31.4* PO2 -- -- -- -- -- -- 79.2* 78.4* BE -- -- -- -- -- -- -2.2 -1.0 < > = values in this interval not displayed. Exam: GENERAL: No distress NEURO: Sedated, not following commands HEENT: normocephalic, atraumatic, pupils reactive, +icterus LUNGS: Unlabored breathing O2 Therapy: Ventilator CARDIAC: AFib, Levo @ 11 ABDOMEN: Soft, non-tender, non-distended, VAC and retention sutures intact EXTREMITIES: MAK, No deformities, palpable pulses SKIN: Skin texture, turgor normal, No rashes or lesions, +jaundice ASSESSMENT AND PLAN: Active Hospital Problems Diagnosis Date Noted - Ruptured abdominal aortic aneurysm (AAA) ([facility]) 01/12/2018 - Obesity, Class I, BMI 30-34.9 01/16/2018 - Encephalopathy 01/13/2018 - DIC (disseminated intravascular coagulation) ([facility]) 01/12/2018 - Hemorrhagic shock ([facility]) 01/12/2018 - Acute respiratory failure ([facility]) 01/12/2018 - Cardiac arrest ([facility]) 01/12/2018 - Hypernatremia 01/12/2018 - Hypokalemia 01/12/2018 - Hypomagnesemia 01/12/2018 - Hypophosphatemia 01/12/2018 - Hyperchloremia 01/12/2018 - AAA (abdominal aortic aneurysm, ruptured) ([facility]) 01/12/2018 Overview Note: Added automatically from request for surgery [id number] 77 year old male with Ruptured AAA s/p Emergent Repair, takeback washout, repair of serosal tears x2, on 01/12, hemorrhagic shock, acute resp failure with pulm edema, TERENCE, SVT, s/p Third Look Laparotomy and?washout on 01/14, fourth look, washout, vac change on 01/16, Partial fascial closure on 01/19 ? - Vent mgmt per MICU - NPO/TPN, TFs on hold - Wean Levo as tolerated - Acute blood loss and dilutional anemia and thrombocytopenia - monitor, stable - TERENCE -->?CVVHD per?Nephro, diurese as tolerates - CXR w bilateral opacities - SpCx pending, Smear +GNB --> Zosyn per MICU - cont scrotal support - Cont WV --> wound care following for VAC changes - Hyperbilirubinemia and Transaminitis -->?trending down, Abd US WNL - Solucortef 50mg q8h per MICU - Leukocytosis - reactive, steroid related, and possibly 2/2 PNA - Trach/PEG today with Dr. Cox and Dr. Menezes - T+C for pRBCs and Plt --> on hold for OR ?? Assessment and plan discussed with attending: Dr. Paniagua SIGNATURE: Dionicio Stevens MD PATIENT NAME: Naveen Akins DATE: January 27, 2018 TIME: 6:28 AM Vascular AND Thoracic Surgery Service Pager: For questions or concerns Mon-Tue 6a-5p please page [phone]. After 5pm and on Weekends and Holidays, please page [phone] if in ICU or [phone] if on RNF. CHEST 1 VIEW Observed: 01/27/2018 Status: F Source: [facility] 6:20 AM HEALTH SYSTEM REPOSITORY Performed at [facility] APPROVED BY: Benigno Lee MD Portable frontal chest, 0554 hours: CLINICAL INDICATION: Respiratory failure. COMPARISON: Daily prior chest radiographs. Multiple wires and tubes overlie the chest. There is an endotracheal tube in profile with the tracheal airway terminating above the kianna, an enteric tube extending into the stomach and a right technology risk intern al jugular central venous catheter terminating in profile with the right atrium. There are bilateral perihilar and right infrahilar parenchymal opacities. The lateral costophrenic angles are clear. The cardiac and mediastinal silhouette appears stable. IMPRESSION: Bilateral parenchymal opacities, possible atelectasis or pneumonia. Life-support equipment as noted. HEMOGRAM/DIFF Collected: 01/27/2018 Status: F Source: [facility] 5:30 AM HEALTH SYSTEM REPOSITORY TYPE CODE TESTS RESULT OUT OF REFERENCE UNITS RANGE LAB WBC(LOINC) 4.23-9.07 thou/cmm WBC 8.91 LAB RBC(LOINC) 4.63-6.08 mil/cmm Low RBC 3.30 LAB HGB(LOINC) 13.7-17.5 g/dL Low Hgb 9.4 LAB HCT(LOINC) 40.1-51.0 % Low Hct 29.4 LAB MCV(LOINC) 83.2-95.6 fl MCV 89.1 LAB MCH(LOINC) 25.7-32.2 pg MCH 28.5 LAB MCHC(LOINC 32.3-36.5 % ) Low MCHC 32.0 LAB RDW(LOINC) 11.6-14.4 % RDW High 20.9 LAB RDWSD(LOIN 36.1-45.8 fl C) RDW SD High 67.6 LAB PLT(LOINC) 141-365 thou/cmm Low Platelet 119 LAB MPV(LOINC) 8.7-12.0 fl MPV High 13.1 LAB SEG(LOINC) % Seg Neutrophil 85.3 LAB IGRE(LOINC % ) Immature Grans 2.20 LAB LYMPH(LOIN % C) Lymphocyte 7.5 LAB MNO(LOINC) % Monocyte 4.6 LAB EOSIN(LOIN % C) Eosinophil 0.2 LAB BASO(LOINC % ) Basophil 0.2 LAB SEGN(LOINC 1.78-5.38 thou/cmm ) Abs. High Neut (ANC) 7.60 LAB IGAB(LOINC 0.00-0.05 thou/cmm ) Abs High Immature Grans 0.20 LAB LYMN(LOINC 0.84-2.85 thou/cmm ) Low Abs. Lymph 0.67 LAB MONON(LOIN 0.30-0.82 thou/cmm C) Abs. Rincon 0.41 LAB EOSN(LOINC 0.04-0.54 thou/cmm ) Low Abs. Eosin 0.02 LAB BASON(LOIN 0.01-0.08 thou/cmm C) Abs. Baso 0.02 Result Comment: Smear scanned; tech agrees with automated differential Performed By: #### [id number] #### [place] [address] IONIZED CALCIUM Collected: 01/27/2018 Status: F Source: [facility] 5:30 AM [place] SYSTEM REPOSITORY TYPE CODE TESTS RESULT OUT OF REFERENCE UNITS RANGE LAB CAION(LOINC 4.43-4.93 mg/dL ) Low Ionized 4.26 Calcium LAB PHCAI(LOINC 7.320-7.420 ) pH 7.363 LAB CAPH(LOINC) 4.36-4.73 mg/dL Low Ionized 4.18 Ca,PH7.4 Performed By: #### IONCA #### [place] [address] RENAL PANEL Collected: 01/27/2018 Status: F Source: [facility] 5:30 AM [place] [facility] REPOSITORY TYPE CODE TESTS RESULT OUT OF REFERENCE UNITS RANGE LAB NA(LOINC) 136-145 mEq/L Sodium Blood 139 LAB K(LOINC) 3.5-5.1 mEq/L Potassium Blood 4.1 LAB CL(LOINC) 98-107 mEq/L Chloride Blood 105 LAB CO2(LOINC) 21-32 mEq/L CO2 Blood 27 LAB GLU(LOINC) 70-99 mg/dL Glucose High Blood 158 LAB BUN(LOINC) 7-18 mg/dL BUN High Blood 42 LAB CREA(LOINC 0.67-1.17 mg/dL ) High Creatinine Blood 1.42 LAB CA(LOINC) 8.5-10.1 mg/dL Low Calcium Blood 7.3 LAB ALB(LOINC) 3.4-5.0 g/dL Low Albumin Blood 1.1 LAB PHOS(LOINC 2.5-4.9 mg/dL ) Phosphorus Blood 2.8 Performed By: #### RENAL #### [facility] [address] [place] [address] MAGNESIUM BLOOD Collected: 01/27/2018 Status: F Source: [facility] 5:30 AM HEALTH SYSTEM REPOSITORY TYPE CODE TESTS RESULT OUT OF REFERENCE UNITS RANGE LAB MAG(LOINC) 1.6-2.6 mg/dL Magnesium Blood 2.4 Performed By: #### MAG #### [facility] [address] [place] [address] RENAL PANEL Collected: 01/26/2018 Status: F Source: [facility] 11:45 PM HEALTH SYSTEM REPOSITORY TYPE CODE TESTS RESULT OUT OF REFERENCE UNITS RANGE LAB NA(LOINC) 136-145 mEq/L Sodium Blood 137 LAB K(LOINC) 3.5-5.1 mEq/L Potassium Blood 4.6 LAB CL(LOINC) 98-107 mEq/L Chloride Blood 106 LAB CO2(LOINC) 21-32 mEq/L CO2 Blood 25 LAB GLU(LOINC) 70-99 mg/dL Glucose High Blood 156 LAB BUN(LOINC) 7-18 mg/dL BUN High Blood 42 LAB CREA(LOINC 0.67-1.17 mg/dL ) High Creatinine Blood 1.41 LAB CA(LOINC) 8.5-10.1 mg/dL Low Calcium Blood 7.4 LAB ALB(LOINC) 3.4-5.0 g/dL Low Albumin Blood 1.1 LAB PHOS(LOINC 2.5-4.9 mg/dL ) Phosphorus Blood 3.0 Performed By: #### RENAL #### [facility] [address] [place], [place] [address] MAGNESIUM BLOOD Collected: 01/26/2018 Status: F Source: [facility] 11:45 PM HEALTH SYSTEM REPOSITORY TYPE CODE TESTS RESULT OUT OF REFERENCE UNITS RANGE LAB MAG(LOINC) 1.6-2.6 mg/dL Magnesium Blood 2.4 Performed By: #### MAG #### [facility] [address] [place], [place] [address] ALLIED HEALTH Observed: 01/26/2018 Status: COMPLETED Source: [place] 8:27 PM [facility] REPOSITORY HNO ID: [id number] Author: Chaplain Saenz (Chaplain) Service: Spiritual Care Author Type: Envelope Stamping Machine Operator Type: Allied Health Filed: 01/26/2018 8:28 PM Note Text: SPIRITUALCARE Spiritual Care Visit- Brief Note Name: Naveen Akins Date: January 26, 2018 Notes: Pre-Surg visit attempted; staff working with pt; no family in room Envelope Stamping Machine Operator Signature: Chaplain Dany To contact the Spiritual Care Department: Please call [phone] or Page the On-Call Envelope Stamping Machine Operator at pager [phone] Thank you for the opportunity to be of service. This is an electronically created document. IF PRINTED, PLEASE DO NOT REMOVE FROM THE CHART OR MODIFY PRINTED COPY. NURSING PROG Observed: 01/26/2018 Status: COMPLETED Source: [place] 7:25 PM [facility] REPOSITORY HNO ID: [id number] Author: Traci Delvalle (Rn) MAGALY Oconnell Service: Dialysis Author Type: Registered Nurse Type: Nursing Progress Note Filed: 01/26/2018 7:28 PM Note Text: CRRT circuit changed All orders resumed bfr 200 Lines reversed A:V V:A Hemosafe devices on x 2 Report to Icu nurse Will monitor closely RENAL PANEL Collected: 01/26/2018 Status: F Source: [facility] 6:00 PM HEALTH SYSTEM REPOSITORY TYPE CODE TESTS RESULT OUT OF REFERENCE UNITS RANGE LAB NA(LOINC) 136-145 mEq/L Sodium Blood 138 LAB K(LOINC) 3.5-5.1 mEq/L Potassium Blood 4.4 LAB CL(LOINC) 98-107 mEq/L Chloride Blood 104 LAB CO2(LOINC) 21-32 mEq/L CO2 Blood 23 LAB GLU(LOINC) 70-99 mg/dL Glucose High Blood 219 LAB BUN(LOINC) 7-18 mg/dL BUN High Blood 45 LAB CREA(LOINC 0.67-1.17 mg/dL ) High Creatinine Blood 1.49 LAB CA(LOINC) 8.5-10.1 mg/dL Low Calcium Blood 7.6 LAB ALB(LOINC) 3.4-5.0 g/dL Low Albumin Blood 1.2 LAB PHOS(LOINC 2.5-4.9 mg/dL ) Phosphorus Blood 3.1 Performed By: #### RENAL #### [facility] [address] [place] [address] MAGNESIUM BLOOD Collected: 01/26/2018 Status: F Source: [facility] 6:00 PM HEALTH SYSTEM REPOSITORY TYPE CODE TESTS RESULT OUT OF REFERENCE UNITS RANGE LAB MAG(LOINC) 1.6-2.6 mg/dL Magnesium Blood 2.4 Performed By: #### MAG #### [facility] [address] [place] [address] ALLIED HEALTH Observed: 01/26/2018 Status: COMPLETED Source: [place] 1:00 PM CLINIC OTHER CAMPUS REPOSITORY HNO ID: [id number] Author: Chaplain Serna (Chaplain) Service: Spiritual Care Author Type: Envelope Stamping Machine Operator Type: Allied Health Filed: 01/26/2018 2:01 PM Note Text: SPIRITUALCARE Spiritual Care Visit- Brief Note Name: Naveen Akins Date: January 26, 2018 Notes: Checked in w/pt's fam after they met w/Dr Castillo--they so appreciated the time he took with them, as well as his compassionate approach and empathy--they are now processing what they've learned and, I gathered, working out a plan moving forward. They asked that we continue to pray for them--I assured them we would--they know we are here if they need us. Envelope Stamping Machine Operator Signature: Chaplain Daphne To contact the Spiritual Care Department: Please call [phone] or Page the On-Call Envelope Stamping Machine Operator at pager [phone] Thank you for the opportunity to be of service. This is an electronically created document. IF PRINTED, PLEASE DO NOT REMOVE FROM THE CHART OR MODIFY PRINTED COPY. PROGRESS Observed: 01/26/2018 Status: COMPLETED Source: [place] 12:54 PM CLINIC OTHER CAMPUS REPOSITORY HNO ID: [id number] Author: Troy Godoy Service: Nephrology Author Type: Physician Type: Progress Notes Filed: 01/26/2018 12:55 PM Note Text: Subjective. No events new 01/26/18 1200 01/26/18 1215 01/26/18 1230 01/26/18 1250 BP: Pulse: (!) 129 118 102 115 Resp: 20 17 18 20 Temp: TempSrc: SpO2: 99% 99% 99% 100% Weight: Height: No pallor No icterus No JVD Heart - S1 S2 Lungs - clear Abdomen - surgical wounds + LE - no edema, No cyanosis No rash CMP: Glucose 175 01/26/2018 BUN 49 01/26/2018 Creatinine 1.55 01/26/2018 Sodium 139 01/26/2018 Potassium 4.2 01/26/2018 Chloride 104 01/26/2018 CO2 24 01/26/2018 Protein, Total 5.3 01/26/2018 Albumin 1.2 01/26/2018 Calcium 7.9 01/26/2018 Alkaline Phosphatase 234 01/26/2018 Bilirubin, Total 7.5 01/26/2018 AST 87 01/26/2018 ALT 89 01/26/2018 Hemoglobin (g/dL) Date Value 11/14/2017 15.0 HGB (g/dL) Date Value 01/26/2018 11.3 Hematocrit (%) Date Value 01/26/2018 34.3 WBC (thou/cmm) Date Value 01/26/2018 13.71 Platelet Count (thou/cmm) Date Value 01/26/2018 135 Assessment/ Plan 1. Acute kidney injury on chronic kidney disease stage 3. Baseline SCr is 1.36 mg/dL on 11/14/17. CKD is likely due to nephrosclerosis related to PAD. TERENCE is 2/2 ischemic ATN from shock. On pressors still. Pt may be making more urine (difficult to quantify since he is incontinent). CVVHDF is progressing well. Effluent dose is adequate. Cath flow is good with the new femoral catheter. Continue UF rate at 50 mL/hr since BP is stable. If pressor requirements increase will run even. ? 2. Shock. Improved. Initially due to hemorrhagic shock-massive blood loss from ruptured AAA +/- adrenal insufficiency. Continue hydrocortisone. ? 5. Ruptured AAA. s/p repair 01/12/18. Management as per vascular surgery. ? 6. Acute hypoxic respiratory failure. Ventilator dependent. Vent management as per ICU. O>I with CRRT UF. ? 7. Encephalopathy. Neuro evaluation in progress NUTRITION Observed: 01/26/2018 Status: COMPLETED Source: [place] 11:44 AM [facility] REPOSITORY O ID: [id number] Author: Viry Mosher RD Service: NST-Nutrition Support Team Author Type: Registered Dietitian Type: Nutrition Filed: 01/26/2018 11:53 AM Note Text: Attestation signed by Perla Dudley at 01/27/2018 7:32 AM Discussed with the RD and agree with RD's findings and plan as documented in the RD's note. Cont TPN for now Perla Dudley MD NUTRITION SUPPORT TEAM TOPIC: NUTRITION SUPPORT TEAM PROGRESS NOTE PATIENT NAME: Naveen Akins DATE OF : 1940 DATE: 01/26/2018 Nutritional Status: NO MALNUTRITION IDENTIFIED per RD 01/16/18 ? ? NUTRITION CARE PLAN: ? Problem, Etiology and Signs/Symptoms: Altered GI function related to potential ileus?as evidenced by lack of bowel sounds, distended abdomen, and hypotension. ? NST consult 01/16/18 for TPN support ? Interval History: LOS d 14, tolerating TPN, TF off, plans for PEG 01/27 noted, NPO/NGT, Assessment: 77 year old male with Ruptured AAA s/p Emergent Repair, takeback washout, repair of serosal tears x2, on 01/12, hemorrhagic shock, acute resp failure with pulm edema, TERENCE, SVT s/p Third Look Laparotomy and?washout on 01/14, fourth look, washout, vac change on 01/16 ?remains on vent, continues on CRRT 01/19 ?X lap, wash out, partial fascial closure, wound vac change 01/20 pressors weaned off Remains on diprivan gtt 01/20 rt thoracentesis- breathing better 01/21 limited abdominal x lap and closure 01/22 levo at pm restarted 01/23 neuro consult, ? plans for trach/Peg 01/24 new femoral HD line per nephrology, working good 01/25 + emesis 01/26 started on Zosyn for GNR ( sputum) , TF off ? Tmax: 37.4 WBC: 13.71 Edema: 3+ UE, LE Lines: Art Line, Quad lumen, HD cath, all WNL Lytes: reviewed PAB: last level 18.6, not drawn today WT: ?84.0 kg ( down from 104 kg) GFR: 42.95 Trig : improved to 352, off diprivan and lipids in TPN ? Recommendations: TPN renewed: increased dextrose and insulin ? TPN script: 1.5?L /24 hrs providing 1760 calories ( 21?kcals/kg ABW 84?kg) and 90 gms pro ( ~ 1.0 gms/kg ABW 84?kg) per day ? CHO:insulin ratio is ?9.1:1?, with 412 gms CHO in TPN , 45 units in TPN bag ? Resume TF as able Collaborated with Dr Dudley and orders written. Vitals: Temperature Max in 24 hours: Temp (24hrs), Av.7 ?C (98 ?F), Min:35.5 ?C (95.9 ?F), Max:37.6 ?C (99.7 ?F) Current Vital Signs: BP 132/57 Pulse 112 Temp 36.6 ?C (97.9 ?F) (Axillary) Resp 18 Ht 172.7 cm (5' 8) Wt 84 kg (185 lb 3 oz) SpO2 99% BMI 28.16 kg/m? Current Weight: Weight: 84 kg (185 lb 3 oz) Intake AND Output: Intake/Output Summary (Last 24 hours) at 01/26/18 1144 Last data filed at 01/26/18 1100 Gross per 24 hour Intake 1770.7 ml Output 3810 ml Net -2039.3 ml Laboratory Data: Recent Labs 01/26/18 0415 01/25/18 2235 01/25/18 1753 01/24/18 0420 NA 137 137 137 < > 141 K 4.5 4.7 4.7 < > 4.5 CHLOR 105 106 106 < > 106 CO2 24 21 21 < > 23 CREAT 1.57* 1.63* 1.56* < > 1.80* BUN 48* 47* 53* < > 57* GLUC 213* 175* 171* < > 189* P 3.1 2.8 3.0 < > 3.5 TPROT 5.3* -- -- -- 5.0* ALB 1.3* 1.4* 1.5* -- 1.3* MG 2.6 2.5 2.6 < > 2.7* CA 7.8* 7.8* 7.7* < > 7.2* < > = values in this interval not displayed. Recent Labs 01/23/18 1655 PREALB 18.6* Viry Mosher RD, LD, [facility] Pager: [phone] Increments: 3 PROGRESS Observed: 01/26/2018 Status: COMPLETED Source: [place] 11:17 AM CLINIC OTHER CAMPUS REPOSITORY HNO ID: [id number] Author: Tracey (Rn) MAGALY De La Fuente Service: Dialysis Author Type: Registered Nurse Type: Progress Notes Filed: 01/26/2018 11:19 AM Note Text: CRRT circuit changed due to clotting filter. Access via right femoral temp HD cath. PBP, dialysate and post rep. At 800ml/hr. BFR at 150ml/min. Report to Jose GARDNER. RENAL PANEL Collected: 01/26/2018 Status: F Source: [facility] 10:50 AM HEALTH SYSTEM REPOSITORY TYPE CODE TESTS RESULT OUT OF REFERENCE UNITS RANGE LAB NA(LOINC) 136-145 mEq/L Sodium Blood 139 LAB K(LOINC) 3.5-5.1 mEq/L Potassium Blood 4.2 LAB CL(LOINC) 98-107 mEq/L Chloride Blood 104 LAB CO2(LOINC) 21-32 mEq/L CO2 Blood 24 LAB GLU(LOINC) 70-99 mg/dL Glucose High Blood 175 LAB BUN(LOINC) 7-18 mg/dL BUN High Blood 49 LAB CREA(LOINC 0.67-1.17 mg/dL ) High Creatinine Blood 1.55 LAB CA(LOINC) 8.5-10.1 mg/dL Low Calcium Blood 7.9 LAB ALB(LOINC) 3.4-5.0 g/dL Low Albumin Blood 1.2 LAB PHOS(LOINC 2.5-4.9 mg/dL ) Phosphorus Blood 3.3 Performed By: #### RENAL #### [facility] [address] [place] [address] MAGNESIUM BLOOD Collected: 01/26/2018 Status: F Source: [facility] 10:50 AM HEALTH SYSTEM REPOSITORY TYPE CODE TESTS RESULT OUT OF REFERENCE UNITS RANGE LAB MAG(LOINC) 1.6-2.6 mg/dL Magnesium Blood 2.5 Performed By: #### MAG #### [place] [address] PREALBUMIN Collected: 01/26/2018 Status: F Source: [facility] 10:50 AM HEALTH SYSTEM REPOSITORY TYPE CODE TESTS RESULT OUT OF REFERENCE UNITS RANGE LAB PAB(LOINC) 20.0-40.0 mg/dL Low Prealbumin 17.0 Performed By: #### PAB #### [facility] [address] [place] [id number] PROGRESS Observed: 01/26/2018 Status: COMPLETED Source: [place] 10:40 AM CLINIC OTHER CAMPUS REPOSITORY HNO ID: [id number] Author: Paulo Dial) Radu Service: Critical Care Author Type: Nurse Specialist Type: Progress Notes Filed: 01/26/2018 10:47 AM Note Text: MICU - PROGRESS NOTE SERVICE DATE: 01/26/2018 SERVICE TIME: 10:41 AM Admission Date: 01/12/2018 AGE: [age] year old LOS: 14 days Subjective REASON FOR ICU ADMISSION: Respiratory Failure and Shock Objective PROBLEMS: ACTIVE PROBLEM LIST Gallstone Pancreatitis Ruptured Abdominal Aortic Aneurysm (Aaa) (Hcc) Dic (Disseminated Intravascular Coagulation) (Hcc) Hemorrhagic Shock (Hcc) Acute Respiratory Failure (Hcc) Cardiac Arrest (Hcc) Hypernatremia Hypokalemia Hypomagnesemia Hypophosphatemia Hyperchloremia Encephalopathy Aaa (Abdominal Aortic Aneurysm, Ruptured) (Hcc) Obesity, Class I, Bmi 30-34.9 PAST MEDICAL HISTORY Diagnosis Date - DIC (disseminated intravascular coagulation) (HCC) 01/12/2018 PAST SURGICAL HISTORY Procedure Laterality Date - LAP CHOLECYSTECT/CHOLANGIOGRAPHY 05-28-09 - REPAIR UMBILICAL NATAN,5+Y/O,REDUC 05-28-09 Social History Marital status: Spouse name: Shelly Years of education: 11 Number of children: 4 Occupational History 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 BP 132/57 Pulse 112 Temp (Src) 97.9 (Axillary) Resp 18 Ht 5' 8 (1.73m) Wt 185 lb 3 oz (84.0kg) SpO2 99% BMI 28.16 kg/(m2). Temp (24hrs), Av.6 ?C (97.9 ?F), Min:35.5 ?C (95.9 ?F), Max:37.6 ?C (99.7 ?F) NET FLUID BALANCE Intake/Output Summary (Last 24 hours) at 01/26/18 1041 Last data filed at 01/26/18 0745 Gross per 24 hour Intake 1816.7 ml Output 3487 ml Net -1670.3 ml MEDICATIONS Current Facility-Administered Medications: calcium gluconate 4 g in NaCl 0.9% 250 mL 4 g INTRAVENOUS ONCE ipratropium-albuterol 3 mL nebulizer solution (DUONEB) 3 mL INHALATION q 4 H budesonide 0.5 mg/2 mL 0.5 mg (PULMICORT) 0.5 mg INHALATION BID hydrocortisone sodium succinate (PF) 25 mg injection (Solu- CORTEF) 25 mg INTRAVENOUS q 12 H metoclopramide HCl 5 mg injection (REGLAN) 5 mg INTRAVENOUS q 6 H Parenteral Nutrition - Adult INTRAVENOUS ONCE TPN (1800 START) pantoprazole 40 mg injection (PROTONIX) 40 mg INTRAVENOUS BID AC (0600/1600) piperacillin-tazobactam 3.375 g in dextrose (iso-osmotic) 50 mL (ZOSYN) 3.375 g INTRAVENOUS q 6 H midazolam 100 mg in D5W 100 mL (VERSED) 1-10 mg/hr INTRAVENOUS CONTINUOUS docusate sodium oral liquid 100 mg/10 mL (DIOCTO,COLACE) 100 mg OROGASTRIC BID senna leaf extract 176 mg/5 mL 528 mg 15 mL OROGASTRIC BID carboxymethylcellulose sodium 1-2 Drop (CELLUVISC) 1-2 Drop BOTH EYES PRN polyvinyl alcohol-povidone 1.4-0.6 % 1 Drop (REFRESH) 1 Drop BOTH EYES QID PRN heparin 1,000 unit/mL 4,000 Units injection 4,000 Units INTRAVENOUS 3 Times weekly with dialysis heparin 5,000 Units injection 5,000 Units SUBCUTANEOUS q 12 H NaCl 0.9% 1,000 mL iv bolus 1,000 mL INTRAVENOUS PRN DIALYSIS prismaSOL BGK 4 K / 2.5 mEq Ca/Liter 5,000 mL 5,000 mL HEMODIALYSIS continuous (no dispense) prismaSOL BGK 4 K / 2.5 mEq Ca/Liter 5,000 mL 5,000 mL HEMODIALYSIS continuous (no dispense) prismaSOL BGK 4 K / 2.5 mEq Ca/Liter 5,000 mL 5,000 mL HEMODIALYSIS continuous (no dispense) dextrose 40 % 15 g 15 g ORAL PRN Or glucagon 1 mg injection (GLUCAGEN) 1 mg INTRAMUSCULAR PRN Or dextrose 50% in water 25 mL syringe 12.5 g INTRAVENOUS PRN magnesium sulfate 1 g in D5W 100 mL 1 g INTRAVENOUS PRN magnesium sulfate in water 2 g in sterile water 50 ml 2 g INTRAVENOUS PRN fentaNYL 20 mcg/mL iv infusion in NaCl 0.9% 100 mL 0-200 mcg/hr INTRAVENOUS CONTINUOUS NORepinephrine 16 mg in D5W 250 mL (LEVOPHED) 0-30 mcg/min INTRAVENOUS CONTINUOUS Chlorhexidine Gluconate 0.12 % 15 mL (PERIDEX) 15 mL ORAL q 12 H Lines, Drains, and Airways Line Arterial Line 01/19/18 0840 Arterial Line Right Radial 7 days Central Line Quadruple Lumen 01/19/18 1056 Right Neck 6 days Dialysis / Apheresis Double Lumen 01/24/18 1400 Non-tunneled Right Groin 1 day Drain GI Feed/Drain 01/12/18 0100 14 days Drain/Tube 01/19/18 1015 Midline Abdomen 7 days Airway Airway Endotracheal Tube 01/12/18 1138 13 days PHYSICAL EXAM PERFORMED: Cardiovascular: Irregular rhythm Respiratory: Reduced breath sounds bilat %FIO2 Min: 40 Max: 40 Abdomen: Positive bowel sounds Extremities: Edema- Yes Generalized edema Neurologic: Unresponsive Respiratory/Nursing Documentation: O2 Therapy: Ventilator (01/26/18834) Invasive Ventilator Mode: Pressure Regulated Volume Control (01/26/18834) Set Ventilator Respiratory Rate (BPM): 18 (01/26/18834) Total Respiratory Rate (BPM): 22 (01/26/18834) Tidal Volume Set (mL): 480 (01/26/18834) Exhaled Tidal Volume (mL): 707 (01/26/18834) Minute Volume (L): 10.7 (01/26/18834) Peak Inspiratory Pressure (cm H2O): 17 (01/26/18834) PEEP/CPAP (cm H2O): 5 (01/26/1835) HEMODYNAMIC DATA: Reviewed NUTRITION: Enteral Feeds: TPN DATA: Diagnostic tests reviewed for today's visit, films/specimens were personally reviewed by me: Most recent labs and imaging results. LABS: Recent Labs 01/26/18 0415 01/24/18 0420 WBC 13.71* < > 13.44* RBC 3.94* < > 2.48* HB 11.3* < > 7.1* HCT 34.3* < > 21.8* MCV 87.1 < > 87.9 PLT 135* < > 141 GLUC 213* < > 189* BUN 48* < > 57* CREAT 1.57* < > 1.80* NA 137 < > 141 K 4.5 < > 4.5 CHLOR 105 < > 106 CO2 24 < > 23 TPROT 5.3* -- 5.0* ALB 1.3* < > 1.3* CA 7.8* < > 7.2* ALKPHOS 234* -- 297* TBILI 7.5* -- 6.3* AST 87* -- 132* ALT 89* -- 103* PTSEC -- -- 10.6 INR -- -- 1.00 MG 2.6 < > 2.7* < > = values in this interval not displayed. ABG: Recent Labs 01/25/18 1600 01/25/18 0425 01/24/18 2230 PH 7.478* 7.466* 7.443 PO2 79.2* 78.4* 77.4* PCO2 28.3* 31.4* 30.2* Assessment/Plan IMPRESSION: Critical Care Documentation: The patient has the following organ/system impairment(s): ?? 1.Acute hypoxic respiratory failure/ARDS/Bilat pleuaral effusions-remains intubated on 40% FIO2 2. Ruptured AAA ?Sp repair-Wound closed vac in place draining sm amt serosanguinous drainage 3.SP cardiac arrest 4.Shock-Levophed support at 25mcg 5. Pt is nonresponsive-even to noxious stimuli-Encephalopathy 6.Thrombocytopenia-platelet 135,000 7.Nutritional support-TPN 8.Sinus tachycardia-SVT resolved-frequent PACs this AM 9.TERENCE on CKD-on CRRT 10. Fentanyl drip at 150mcg/kh for pain control 11. Ileus/gastroparesis 12. Acute blood loss anemia 13.Hyperlipidemia improving This patient has a high probability of sudden, clinically significant deterioration, which requires the highest level of physician preparedness to intervene urgently. I managed/supervised life or organ supporting interventions that required frequent physician assessment. I devoted my full attention to the direct care of this patient for the amount of time indicated below. Time I spent with family or surrogate(s) is included only if the patient was incapable of providing the necessary information or participating in medical decision making. Time devoted to teaching is not included. Discussed with staff/patient/family Time spent providing critical care services: 40 minutes excluding procedures. SIGNATURE: Paulo Lovelace APRN.MAINTENANCE TEAM MEMBER PATIENT NAME: Naveen Akins DATE: January 26, 2018 TIME: 10:41 AM ALLIED HEALTH Observed: 01/26/2018 Status: COMPLETED Source: [place] 9:50 AM [facility] OTHER [place] REPOSITORY HNO ID: [id number] Author: Chaplain Serna (Chaplain) Service: Spiritual Care Author Type: Envelope Stamping Machine Operator Type: Allied Health Filed: 01/26/2018 10:39 AM Note Text: SPIRITUALCARE Spiritual Care Visit- Brief Note Name: Naveen Akins Date: January 26, 2018 Notes: Checked in w/pt's fam in 3d floor [place]--they told me he will be receiving a trach tomorrow. We spoke about prayer; about things being in God's hands, and that God will do what is best for him. Spoke also with his caregivers when I went to offer prayer at his bedside--conversation about compassion and healing. [place] will continue to follow this patient and fam as appropriate. Envelope Stamping Machine Operator Signature: Chaplain Daphne To contact the Spiritual Care Department: Please call [phone] or Page the On-Call Envelope Stamping Machine Operator at pager [phone] Thank you for the opportunity to be of service. This is an electronically created document. IF PRINTED, PLEASE DO NOT REMOVE FROM THE CHART OR MODIFY PRINTED COPY. PROGRESS Observed: 01/26/2018 Status: COMPLETED Source: [place] 9:27 AM [facility] OTHER CAMPUS REPOSITORY HNO ID: [id number] Author: Dorcas Palafox Service: Critical Care Author Type: Physician Type: Progress Notes Filed: 01/26/2018 9:48 AM Note Text: MICU - PROGRESS NOTE SERVICE DATE: 01/26/2018 SERVICE TIME: 9:27 AM Admission Date: 01/12/2018 AGE: [age] year old LOS: 14 days Subjective REASON FOR ICU ADMISSION: Pneumonia, Renal Failure, Respiratory Failure, Sepsis, Shock, S/P Surgery and Encephalopathy. Unresponsive to name, touch, and noxious stimuli. Sedated on 150mcg/hr Fentanyl and 6mg/hr Versed. Vomited tube feeds yesterday with high residuals noted. VENT: PRVC-18 Vt-480ml P-5 FiO2 40%. Ve--9-11l/min. SaO2 100%. Copious thick brown secretions noted per ETT Objective VITAL SIGNS (last 24hrs min/max): Temp Av.6 ?C (97.8 ?F) Min: 35.5 ?C (95.9 ?F) Max: 37.6 ?C (99.7 ?F) Pulse Av.9 Min: 96 Max: 120 Arterial BP 1 Min: 77/45 Max: 136/69 Cuff No Data Recorded Pain Score: 0/10 Vital signs reviewed. BP 132/57 Pulse 100 Temp (Src) 97.9 (Axillary) Resp 18 Ht 5' 8 (1.73m) Wt 185 lb 3 oz (84.0kg) SpO2 99% BMI 28.16 kg/(m2). Temp (24hrs), Av.6 ?C (97.8 ?F), Min:35.5 ?C (95.9 ?F), Max:37.6 ?C (99.7 ?F) NET FLUID BALANCE Intake/Output Summary (Last 24 hours) at 01/26/18 0927 Last data filed at 01/26/18 0745 Gross per 24 hour Intake 2059.7 ml Output 3644 ml Net -1584.3 ml MEDICATIONS Current Facility-Administered Medications: calcium gluconate 4 g in NaCl 0.9% 250 mL 4 g INTRAVENOUS ONCE ipratropium-albuterol 3 mL nebulizer solution (DUONEB) 3 mL INHALATION q 4 H budesonide 0.5 mg/2 mL 0.5 mg (PULMICORT) 0.5 mg INHALATION BID hydrocortisone sodium succinate (PF) 25 mg injection (Solu- CORTEF) 25 mg INTRAVENOUS q 12 H metoclopramide HCl 5 mg injection (REGLAN) 5 mg INTRAVENOUS q 6 H Parenteral Nutrition - Adult INTRAVENOUS ONCE TPN (1800 START) pantoprazole 40 mg injection (PROTONIX) 40 mg INTRAVENOUS BID AC (0600/1600) piperacillin-tazobactam 3.375 g in dextrose (iso-osmotic) 50 mL (ZOSYN) 3.375 g INTRAVENOUS q 6 H midazolam 100 mg in D5W 100 mL (VERSED) 1-10 mg/hr INTRAVENOUS CONTINUOUS docusate sodium oral liquid 100 mg/10 mL (DIOCTO,COLACE) 100 mg OROGASTRIC BID senna leaf extract 176 mg/5 mL 528 mg 15 mL OROGASTRIC BID carboxymethylcellulose sodium 1-2 Drop (CELLUVISC) 1-2 Drop BOTH EYES PRN polyvinyl alcohol-povidone 1.4-0.6 % 1 Drop (REFRESH) 1 Drop BOTH EYES QID PRN heparin 1,000 unit/mL 4,000 Units injection 4,000 Units INTRAVENOUS 3 Times weekly with dialysis heparin 5,000 Units injection 5,000 Units SUBCUTANEOUS q 12 H NaCl 0.9% 1,000 mL iv bolus 1,000 mL INTRAVENOUS PRN DIALYSIS prismaSOL BGK 4 K / 2.5 mEq Ca/Liter 5,000 mL 5,000 mL HEMODIALYSIS continuous (no dispense) prismaSOL BGK 4 K / 2.5 mEq Ca/Liter 5,000 mL 5,000 mL HEMODIALYSIS continuous (no dispense) prismaSOL BGK 4 K / 2.5 mEq Ca/Liter 5,000 mL 5,000 mL HEMODIALYSIS continuous (no dispense) dextrose 40 % 15 g 15 g ORAL PRN Or glucagon 1 mg injection (GLUCAGEN) 1 mg INTRAMUSCULAR PRN Or dextrose 50% in water 25 mL syringe 12.5 g INTRAVENOUS PRN magnesium sulfate 1 g in D5W 100 mL 1 g INTRAVENOUS PRN magnesium sulfate in water 2 g in sterile water 50 ml 2 g INTRAVENOUS PRN fentaNYL 20 mcg/mL iv infusion in NaCl 0.9% 100 mL 0-200 mcg/hr INTRAVENOUS CONTINUOUS NORepinephrine 16 mg in D5W 250 mL (LEVOPHED) 0-30 mcg/min INTRAVENOUS CONTINUOUS Chlorhexidine Gluconate 0.12 % 15 mL (PERIDEX) 15 mL ORAL q 12 H Lines, Drains, and Airways Line Arterial Line 01/19/18 0840 Arterial Line Right Radial 7 days Central Line Quadruple Lumen 01/19/18 1056 Right Neck 6 days Dialysis / Apheresis Double Lumen 01/24/18 1400 Non-tunneled Right Groin 1 day Drain GI Feed/Drain 01/12/18 0100 14 days Drain/Tube 01/19/18 1015 Midline Abdomen 6 days Airway Airway Endotracheal Tube 01/12/18 1138 13 days PHYSICAL EXAM PERFORMED: Calm age-appropriate acutely ill- looking elderly WM. HEENT: +Orotracheal tube. +Orogastric tube Oral Mucosa: Dry mucous membranes Feeding Tube: Yes. Orogastric tube Eyes: Pupils unequal- OS 3mm OD 2mm and both reactive Neck: Unremarkable; No adenopathy or JVD Cardiovascular: Regular tachycardia. Sinus tach on monitor. Respiratory: Coarse BSs equal bilaterally. %FIO2 Min: 40 Max: 40 Abdomen: Soft, Nontender and Occasional BSs. Extremities: Edema- Yes and trace-1+ pitting LE edema Peripheral Pulses- Present all extremities Capillary Refill- less than 3 seconds Skin: Abnormalities- No Neurologic: Sedated Respiratory/Nursing Documentation: O2 Therapy: Ventilator (01/26/18834) Invasive Ventilator Mode: Pressure Regulated Volume Control (01/26/18834) Set Ventilator Respiratory Rate (BPM): 18 (01/26/1835) Total Respiratory Rate (BPM): 22 (01/26/18834) Tidal Volume Set (mL): 480 (01/26/18834) Exhaled Tidal Volume (mL): 707 (01/26/1835) Minute Volume (L): 10.7 (01/26/1835) Peak Inspiratory Pressure (cm H2O): 17 (01/26/18834) PEEP/CPAP (cm H2O): 5 (01/26/18834) HEMODYNAMIC DATA: NUTRITION: Enteral Feeds: No NPO DATA: Diagnostic tests reviewed for today's visit: Most recent labs and imaging results. LABS: Recent Labs 01/26/18 0415 01/24/18 0420 01/23/18 1020 WBC 13.71* < > 13.44* < > -- RBC 3.94* < > 2.48* < > -- HB 11.3* < > 7.1* < > -- HCT 34.3* < > 21.8* < > -- MCV 87.1 < > 87.9 < > -- PLT 135* < > 141 < > -- GLUC 213* < > 189* -- -- BUN 48* < > 57* -- -- CREAT 1.57* < > 1.80* -- -- NA 137 < > 141 -- -- K 4.5 < > 4.5 -- -- CHLOR 105 < > 106 -- -- CO2 24 < > 23 -- -- TPROT 5.3* -- 5.0* < > -- ALB 1.3* < > 1.3* -- -- CA 7.8* < > 7.2* -- -- ALKPHOS 234* -- 297* < > -- TBILI 7.5* -- 6.3* < > -- AST 87* -- 132* < > -- ALT 89* -- 103* < > -- PTSEC -- -- 10.6 -- 10.0 APTT -- -- -- -- 23.9 INR -- -- 1.00 -- 0.93 MG 2.6 < > 2.7* -- -- < > = values in this interval not displayed. ABG: Recent Labs 01/25/18 1600 01/25/18 0425 01/24/18 2230 PH 7.478* 7.466* 7.443 PO2 79.2* 78.4* 77.4* PCO2 28.3* 31.4* 30.2* CULTURES: Sputum: Positive- 01/24: Many Klebsiella/Enterobacter grp/Many WBCs CXR FINDINGS: Infiltrate Right and medial lower lobe and generalized edema much improved bilaterally. OTHER IMAGIN/22: FINDINGS/ impression: NG tube tip is in the distal stomach. Numerous surgical clips throughout the abdomen. Bilateral femoral line catheters. Mild degree of nonspecific gaseous distention of the colon and small bowel There is no abnormal calcifications. The bony structures appear intact. Assessment/Plan PROBLEMS: ACTIVE PROBLEM LIST Gallstone Pancreatitis Ruptured Abdominal Aortic Aneurysm (Aaa) (Hcc) Dic (Disseminated Intravascular Coagulation) (Hcc) Hemorrhagic Shock (Hcc) Acute Respiratory Failure (Hcc) Cardiac Arrest (Hcc) Hypernatremia Hypokalemia Hypomagnesemia Hypophosphatemia Hyperchloremia Encephalopathy Aaa (Abdominal Aortic Aneurysm, Ruptured) (Hcc) Obesity, Class I, Bmi 30-34.9 1. VDRF secondary to bilateral infiltrates and encephalopathy--former much improved. RR and vent mechanics better today. 2. Medial RLL infiltrate on CXR--?Aspiration pneumonia. ?Klebsiella/Enterobacter 3. Recurrent shock back on Levophed. WBC trending down. 4. S/P cardiac arrest with anoxic/metabolic encephalopathy 5. S/P ruptured AAA on admission with multiple re-look exploratory laps for clean-out procedures. 6. Ileus/Gastroparesis--back on TPN 7. TERENCE on CVVH ongoing 8. Mild thrombocytopenis--135 9. Severe hypoalbuminemia PLANS FOR TODAY: CRITICAL CARE PLAN: Antibiotics , Bronchodilators , Vasopressors, Ventilatory support and Zosyn added overnight. Recommend trach tube if family wishes to proceed. Reglan added Soon retry trickle tube feeds. Neurology to discuss prognosis with family. Hydrocortisone dropped to 25mg q12h Continue Versed and Fentanyl for sedation. This patient has a high probability of sudden, clinically significant deterioration, which requires the highest level of physician preparedness to intervene urgently. I managed/supervised life or organ supporting interventions that required frequent physician assessment. I devoted my full attention to the direct care of this patient for the amount of time indicated below. Time I spent with family or surrogate(s) is included only if the patient was incapable of providing the necessary information or participating in medical decision making. Time devoted to teaching is not included. Patient Updated Yes Family Updated No Discussed with Staff Yes Time spent providing critical care services: 40 minutes excluding procedures. SIGNATURE: Dorcas Palafox MD PATIENT NAME: Naveen Akins DATE: January 26, 2018 TIME: 9:27 AM PAGER/CONTACT #: [phone] PROGRESS Observed: 01/26/2018 Status: COMPLETED Source: [place] 6:27 AM [facility] REPOSITORY O ID: [id number] Author: Dionicio Stevens Service: Vascular Surgery Author Type: Resident Type: Progress Notes Filed: 01/26/2018 11:21 AM Note Text: Attestation signed by Venkat Paniagua at 01/27/2018 9:18 AM Patient was seen and evaluated he appears relatively stable with the exception of some large gastric residuals and therefore the tube feeds been placed on hold. He is on the OR schedule for a trach and PEG tomorrow. Hopefully once these are done we can dramatically decrease the amount of sedation and pain medication the patient is getting and see if there is any neurologic function that we can identify that is purposeful. Vascular Surgery Progress Note SERVICE DATE: 01/26/2018 Vascular AND Thoracic Surgery Service Pager: For questions or concerns Mon-Fri 6a-5p please page [phone]. After 5pm and on Weekends and Holidays, please page [phone] if in ICU or [phone] if on RNF. Subjective SUBJECTIVE: Increased secretions and TF residuals, started Zosyn, back on Levo for Hypotension Diet: DIET NPO Parenteral Nutrition - Adult Objective OBJECTIVE: Vitals: Temp (24hrs), Av.6 ?C (97.8 ?F), Min:35.5 ?C (95.9 ?F), Max:37.6 ?C (99.7 ?F) BP 132/57 Pulse 103 Temp 37.3 ?C (99.1 ?F) (Axillary) Resp 19 Ht 172.7 cm (5' 8) Wt 84 kg (185 lb 3 oz) SpO2 99% BMI 28.16 kg/m? O2 Therapy: Ventilator IANDO: Date 01/25/18 0700 - 01/26/1859 01/26/18699 - 01/27/18 0659 Shift 1534-8731 1467-3094 1732-2803 24 Hour Total 2704-8535 0151-8957 6111-4222 24 Hour Total I N T A K E PO 217 217 Tube Feed Intake (GI Feed/Drain ) 217 217 IV 115.6 175.3 219.9 510.8 Zosyn IV 50 50 Fentanyl Volume 53.8 59.4 46.6 159.8 NORepinephrine Volume 16 91.9 90.4 198.3 Midazolam Volume 45.8 24 32.9 102.7 TPN/PPN 476.7 453.6 389 1319.3 TPN 476.7 453.6 389 1319.3 Irrigants 85 20 105 Irrigant/Flush Amount In (GI Feed/Drain ) 85 20 105 Shift Total 894.3 648.9 608.9 2152.1 O U T P U T Urine 0 0 75 75 Void (ml) 0 0 0 0 Tube Output ([REMOVED] Indwelling Urinary Catheter 01/26/18 0445 Straight Cath 01/26/18 045) 75 75 Drains 0 0 Negative Pressure: Output (mL) (Negative Pressure Wound Therapy 01/12/18 0749 Abdomen) 0 0 Tubes 220 4557 993 3556 Drain/Tube Output (Drain/Tube 01/19/18 1015 Midline Abdomen) 20 10 0 30 Output (GI Feed/Drain ) 200 7485 624 9869 # of BMs Number of BMs 0 x 2 x 0 x 2 x Dialysis 1309 874 980 0148 Dialysis Output (Ultrafiltration) 1309 415 386 7209 Shift Total 1529 9576 426 9337 Weight (kg) 84 84 84 84 84 84 84 84 MEDICATIONS Current Facility-Administered Medications: calcium gluconate 4 g in NaCl 0.9% 250 mL 4 g INTRAVENOUS ONCE ipratropium-albuterol 3 mL nebulizer solution (DUONEB) 3 mL INHALATION q 4 H budesonide 0.5 mg/2 mL 0.5 mg (PULMICORT) 0.5 mg INHALATION BID hydrocortisone sodium succinate (PF) 25 mg injection (Solu- CORTEF) 25 mg INTRAVENOUS q 12 H metoclopramide HCl 5 mg injection (REGLAN) 5 mg INTRAVENOUS q 6 H Parenteral Nutrition - Adult INTRAVENOUS ONCE TPN (1800 START) pantoprazole 40 mg injection (PROTONIX) 40 mg INTRAVENOUS BID AC (0600/1600) piperacillin-tazobactam 3.375 g in dextrose (iso-osmotic) 50 mL (ZOSYN) 3.375 g INTRAVENOUS q 6 H midazolam 100 mg in D5W 100 mL (VERSED) 1-10 mg/hr INTRAVENOUS CONTINUOUS docusate sodium oral liquid 100 mg/10 mL (DIOCTO,COLACE) 100 mg OROGASTRIC BID senna leaf extract 176 mg/5 mL 528 mg 15 mL OROGASTRIC BID carboxymethylcellulose sodium 1-2 Drop (CELLUVISC) 1-2 Drop BOTH EYES PRN polyvinyl alcohol-povidone 1.4-0.6 % 1 Drop (REFRESH) 1 Drop BOTH EYES QID PRN heparin 1,000 unit/mL 4,000 Units injection 4,000 Units INTRAVENOUS 3 Times weekly with dialysis heparin 5,000 Units injection 5,000 Units SUBCUTANEOUS q 12 H NaCl 0.9% 1,000 mL iv bolus 1,000 mL INTRAVENOUS PRN DIALYSIS prismaSOL BGK 4 K / 2.5 mEq Ca/Liter 5,000 mL 5,000 mL HEMODIALYSIS continuous (no dispense) prismaSOL BGK 4 K / 2.5 mEq Ca/Liter 5,000 mL 5,000 mL HEMODIALYSIS continuous (no dispense) prismaSOL BGK 4 K / 2.5 mEq Ca/Liter 5,000 mL 5,000 mL HEMODIALYSIS continuous (no dispense) dextrose 40 % 15 g 15 g ORAL PRN Or glucagon 1 mg injection (GLUCAGEN) 1 mg INTRAMUSCULAR PRN Or dextrose 50% in water 25 mL syringe 12.5 g INTRAVENOUS PRN magnesium sulfate 1 g in D5W 100 mL 1 g INTRAVENOUS PRN magnesium sulfate in water 2 g in sterile water 50 ml 2 g INTRAVENOUS PRN fentaNYL 20 mcg/mL iv infusion in NaCl 0.9% 100 mL 0-200 mcg/hr INTRAVENOUS CONTINUOUS NORepinephrine 16 mg in D5W 250 mL (LEVOPHED) 0-30 mcg/min INTRAVENOUS CONTINUOUS Chlorhexidine Gluconate 0.12 % 15 mL (PERIDEX) 15 mL ORAL q 12 H Labs: Recent Labs 01/26/18 0415 01/25/18 2235 01/25/18 1600 01/25/18 0425 01/24/18 0420 01/23/18 1020 NA 137 137 < > -- 139 -- 141 < > -- K 4.5 4.7 < > -- 4.2 -- 4.5 < > -- CHLOR 105 106 < > -- 107 -- 106 < > -- CO2 24 21 < > -- 20* -- 23 < > -- BUN 48* 47* < > -- 58* -- 57* < > -- CREAT 1.57* 1.63* < > -- 1.68* -- 1.80* < > -- GLUC 213* 175* < > -- 147* -- 189* < > -- ANION 13 -- -- -- 16 -- 17* < > -- CA 7.8* 7.8* < > -- 7.4* -- 7.2* < > -- MG 2.6 2.5 < > -- 2.6 -- 2.7* < > -- P 3.1 2.8 < > -- 2.9 -- 3.5 < > -- ALB 1.3* 1.4* < > -- -- -- 1.3* -- -- AST 87* -- -- -- -- -- 132* -- -- ALT 89* -- -- -- -- -- 103* -- -- ALKPHOS 234* -- -- -- -- -- 297* -- -- TBILI 7.5* -- -- -- -- -- 6.3* -- -- WBC 13.71* 16.24* -- -- 15.78* < > 13.44* < > -- HB 11.3* 11.7* -- -- 10.4* < > 7.1* < > -- HCT 34.3* 35.2* -- -- 31.7* < > 21.8* < > -- PLT 135* 155 -- -- 145 < > 141 < > -- INR -- -- -- -- -- -- 1.00 -- 0.93 PH -- -- -- 7.478* 7.466* < > 7.418 < > -- PCO2 -- -- -- 28.3* 31.4* < > 35.1* < > -- PO2 -- -- -- 79.2* 78.4* < > 173.6* < > -- BE -- -- -- -2.2 -1.0 < > -2.1 < > -- < > = values in this interval not displayed. Exam: GENERAL: No distress NEURO: Sedated, not following commands HEENT: normocephalic, atraumatic, pupils reactive, +icterus LUNGS: Unlabored breathing O2 Therapy: Ventilator CARDIAC: Regular rate and rhythm as above, Levo @ 16 ABDOMEN: Soft, non-tender, non-distended, VAC and retention sutures intact EXTREMITIES: MAK, No deformities, palpable pulses SKIN: Skin texture, turgor normal, No rashes or lesions, +jaundice ASSESSMENT AND PLAN: Active Hospital Problems Diagnosis Date Noted - Ruptured abdominal aortic aneurysm (AAA) ([facility]) 01/12/2018 - Obesity, Class I, BMI 30-34.9 01/16/2018 - Encephalopathy 01/13/2018 - DIC (disseminated intravascular coagulation) ([facility]) 01/12/2018 - Hemorrhagic shock ([facility]) 01/12/2018 - Acute respiratory failure ([facility]) 01/12/2018 - Cardiac arrest ([facility]) 01/12/2018 - Hypernatremia 01/12/2018 - Hypokalemia 01/12/2018 - Hypomagnesemia 01/12/2018 - Hypophosphatemia 01/12/2018 - Hyperchloremia 01/12/2018 - AAA (abdominal aortic aneurysm, ruptured) ([facility]) 01/12/2018 Overview Note: Added automatically from request for surgery [id number] 77 year old male with Ruptured AAA s/p Emergent Repair, takeback washout, repair of serosal tears x2, on 01/12, hemorrhagic shock, acute resp failure with pulm edema, TERENCE, SVT, s/p Third Look Laparotomy and?washout on 01/14, fourth look, washout, vac change on 01/16, Partial fascial closure on 01/19 ? - Vent mgmt per MICU - NPO/TPN, TFs on hold - Wean Levo as tolerated - Acute blood loss and dilutional anemia and thrombocytopenia - monitor, stable - TERENCE -->?CVVHD per?Nephro, diurese as tolerates - CXR w bilateral opacities - SpCx pending, Smear +GNB --> Zosyn per MICU - cont scrotal support - Cont WV --> wound care following for VAC changes - Hyperbilirubinemia and Transaminitis -->?trending down, Abd US WNL - Solucortef 50mg q8h per MICU - Leukocytosis - reactive, steroid related, and possibly 2/2 PNA - Trach/PEG Tuesday with Dr. Cox and Dr. Menezes ?? Assessment and plan discussed with attending: Dr. Paniagua SIGNATURE: Dionicio Stevens MD PATIENT NAME: Naveen Akins DATE: January 26, 2018 TIME: 6:27 AM Vascular AND Thoracic Surgery Service Pager: For questions or concerns Tue-Tue 6a-5p please page [phone]. After 5pm and on Weekends and Holidays, please page [phone] if in ICU or [phone] if on RNF. CHEST 1 VIEW Observed: 01/26/2018 Status: F Source: [facility] 5:14 AM HEALTH SYSTEM REPOSITORY Performed at [facility] APPROVED BY: Yajaira Veronica MD EXAM TITLE: CHEST 1 VIEW DATE: 01/26/2018 05:10 INDICATION: Dyspnea COMPARISON: 01/25/2018 FINDINGS: The endotracheal tube, esophagogastric tube, and right central venous catheter are stable. There is improving interstitial edema. Small left pleural effusion is suspected. Heart is not enla rged. Orthopedic hardware is again noted at the left humerus. IMPRESSION: Improving interstitial edema. IONIZED CALCIUM Collected: 01/26/2018 Status: F Source: [facility] 4:15 AM POW SYSTEM REPOSITORY TYPE CODE TESTS RESULT OUT OF REFERENCE UNITS RANGE LAB CAION(LOINC 4.43-4.93 mg/dL ) Low Ionized 4.11 Calcium LAB PHCAI(LOINC 7.320-7.420 ) pH High 7.437 LAB CAPH(LOINC) 4.36-4.73 mg/dL Low Ionized 4.18 Ca,PH7.4 Performed By: #### IONCA #### [facility] [address] [place] [address] HEMOGRAM/DIFF Collected: 01/26/2018 Status: F Source: [facility] 4:15 AM HEALTH SYSTEM REPOSITORY TYPE CODE TESTS RESULT OUT OF REFERENCE UNITS RANGE LAB WBC(LOINC) 4.23-9.07 thou/cmm WBC High 13.71 LAB RBC(LOINC) 4.63-6.08 mil/cmm RBC Low 3.94 LAB HGB(LOINC) 13.7-17.5 g/dL Hgb Low 11.3 LAB HCT(LOINC) 40.1-51.0 % Hct Low 34.3 LAB MCV(LOINC) 83.2-95.6 fl MCV 87.1 LAB MCH(LOINC) 25.7-32.2 pg MCH 28.7 LAB MCHC(LOINC 32.3-36.5 % ) MCHC 32.9 LAB RDW(LOINC) 11.6-14.4 % RDW High 20.5 LAB RDWSD(LOIN 36.1-45.8 fl C) RDW SD High 62.9 LAB PLT(LOINC) 141-365 thou/cmm Platelet Low 135 LAB MPV(LOINC) 8.7-12.0 fl MPV High 12.7 LAB NRBC(LOINC /100 WBC ) Nucleated RBC 1.0 LAB SEG(LOINC) % Seg Neutrophil 93.0 LAB LYMPH(LOIN % C) Lymphocyte 4.0 LAB MNO(LOINC) % Monocyte 3.0 LAB EOSIN(LOIN % C) Eosinophil 0.0 LAB BASO(LOINC % ) Basophil 0.0 LAB SEGN(LOINC 1.78-5.38 thou/cmm ) Abs. Neut High (ANC) 12.75 LAB LYMN(LOINC 0.84-2.85 thou/cmm ) Abs. Lymph Low 0.55 LAB MONON(LOIN 0.30-0.82 thou/cmm C) Abs. Rincon 0.41 LAB EOSN(LOINC 0.04-0.54 thou/cmm ) Abs. Eosin Low 0.00 LAB BASON(LOIN 0.01-0.08 thou/cmm C) Abs. Baso Low 0.00 LAB RBCM(LOINC ) RBC Morphology Present LAB ANISO(LOIN C) Anisocytosis Slight Performed By: #### [id number] #### [place] [address] HEPATIC PANEL Collected: 01/26/2018 Status: F Source: [facility] 4:15 AM HEALTH SYSTEM REPOSITORY TYPE CODE TESTS RESULT OUT OF REFERENCE UNITS RANGE LAB DBIL(LOINC 0.00-0.20 mg/dL ) Direct see below Bilirubin Result Comment: Hemoglobin interference present. No direct bilirubin result reportable. LAB ALB(LOINC) 3.4-5.0 g/dL Albumin Low Blood 1.3 LAB ALT(LOINC) 12-78 U/L ALT-SGPT High Blood 89 LAB ALKP(LOINC) 46-116 U/L Alk High Phosphatase 234 LAB TP(LOINC) 6.4-8.2 g/dL Total Low Protein 5.3 LAB AST(LOINC) 9-37 U/L AST-SGOT High Blood 87 LAB BILIT(LOINC) 0.2-1.0 mg/dL Total High Bilirubin 7.5 Performed By: #### HEPAP #### [place] [address] BASIC PANEL Collected: 01/26/2018 Status: F Source: [facility] 4:15 AM HEALTH SYSTEM REPOSITORY TYPE CODE TESTS RESULT OUT OF REFERENCE UNITS RANGE LAB NA(LOINC) 136-145 mEq/L Sodium Blood 137 LAB K(LOINC) 3.5-5.1 mEq/L Potassium Blood 4.5 LAB CL(LOINC) 98-107 mEq/L Chloride Blood 105 LAB CO2(LOINC) 21-32 mEq/L CO2 Blood 24 LAB GLU(LOINC) 70-99 mg/dL Glucose High Blood 213 LAB BUN(LOINC) 7-18 mg/dL BUN High Blood 48 LAB CREA(LOINC 0.67-1.17 mg/dL ) High Creatinine Blood 1.57 LAB CA(LOINC) 8.5-10.1 mg/dL Low Calcium Blood 7.8 LAB ANGAP(LOIN 8-16 C) Anion Gap 13 Performed By: #### P8 #### [place] [address] MAGNESIUM BLOOD Collected: 01/26/2018 Status: F Source: [facility] 4:15 AM HEALTH SYSTEM REPOSITORY TYPE CODE TESTS RESULT OUT OF REFERENCE UNITS RANGE LAB MAG(LOINC) 1.6-2.6 mg/dL Magnesium Blood 2.6 Performed By: #### MAG #### [place] [address] PHOSPHORUS BLOOD Collected: 01/26/2018 Status: F Source: [facility] 4:15 AM HEALTH SYSTEM REPOSITORY TYPE CODE TESTS RESULT OUT OF REFERENCE UNITS RANGE LAB PHOS(LOINC 2.5-4.9 mg/dL ) Phosphorus Blood 3.1 Performed By: #### PHOS #### [facility] [address] [place], [place] [address] TRIGLYCERIDE BLOOD Collected: 01/26/2018 Status: F Source: [facility] 4:15 AM HEALTH SYSTEM REPOSITORY TYPE CODE TESTS RESULT OUT OF REFERENCE UNITS RANGE LAB TRIG(LOINC 0-149 mg/dL ) Triglyceride High Blood 352 Result Comment: < 200 Desirable Result invalid if not a fasting specimen. Performed By: #### TRIG #### [facility] [address] [place] [address] PROGRESS Observed: 01/25/2018 Status: COMPLETED Source: [place] 11:44 PM CLINIC OTHER CAMPUS REPOSITORY HNO ID: [id number] Author: Elder Granda Service: Critical Care Author Type: Physician Type: Progress Notes Filed: 01/25/2018 11:46 PM Note Text: GNR from sputum in 01/24. Sputum is thick. Completed a prolonged course of IV ABx. Will start Zosyn. Elder Granda MD 01/25/2018 11:46 PM HEMOGRAM/DIFF Collected: 01/25/2018 Status: F Source: [facility] 10:35 PM HEALTH SYSTEM REPOSITORY TYPE CODE TESTS RESULT OUT OF REFERENCE UNITS RANGE LAB WBC(LOINC) 4.23-9.07 thou/cmm WBC High 16.24 LAB RBC(LOINC) 4.63-6.08 mil/cmm Low RBC 4.07 LAB HGB(LOINC) 13.7-17.5 g/dL Low Hgb 11.7 LAB HCT(LOINC) 40.1-51.0 % Low Hct 35.2 LAB MCV(LOINC) 83.2-95.6 fl MCV 86.5 LAB MCH(LOINC) 25.7-32.2 pg MCH 28.7 LAB MCHC(LOINC 32.3-36.5 % ) MCHC 33.2 LAB RDW(LOINC) 11.6-14.4 % RDW High 20.8 LAB RDWSD(LOIN 36.1-45.8 fl C) RDW SD High 60.5 LAB PLT(LOINC) 141-365 thou/cmm Platelet 155 LAB MPV(LOINC) 8.7-12.0 fl MPV High 12.9 LAB NRBCR(LOIN 0.0-0.2 % C) Nucleated RBC % 0.1 LAB NRBCA(LOIN 0.00-0.01 thou/cmm C) High Nucleated RBC 0.02 Absolute LAB SEG(LOINC) % Seg Neutrophil 90.5 LAB IGRE(LOINC % ) Immature Grans 3.10 LAB LYMPH(LOIN % C) Lymphocyte 3.9 LAB MNO(LOINC) % Monocyte 2.3 LAB EOSIN(LOIN % C) Eosinophil 0.0 LAB BASO(LOINC % ) Basophil 0.2 LAB SEGN(LOINC 1.78-5.38 thou/cmm ) Abs. High Neut (ANC) 14.70 LAB IGAB(LOINC 0.00-0.05 thou/cmm ) Abs High Immature Grans 0.50 LAB LYMN(LOINC 0.84-2.85 thou/cmm ) Low Abs. Lymph 0.63 LAB MONON(LOIN 0.30-0.82 thou/cmm C) Abs. Rincon 0.37 LAB EOSN(LOINC 0.04-0.54 thou/cmm ) Low Abs. Eosin 0.00 LAB BASON(LOIN 0.01-0.08 thou/cmm C) Abs. Baso 0.03 Performed By: #### [id number] #### [place] [address] RENAL PANEL Collected: 01/25/2018 Status: F Source: [facility] 10:35 PM HEALTH SYSTEM REPOSITORY TYPE CODE TESTS RESULT OUT OF REFERENCE UNITS RANGE LAB NA(LOINC) 136-145 mEq/L Sodium Blood 137 LAB K(LOINC) 3.5-5.1 mEq/L Potassium Blood 4.7 LAB CL(LOINC) 98-107 mEq/L Chloride Blood 106 LAB CO2(LOINC) 21-32 mEq/L CO2 Blood 21 LAB GLU(LOINC) 70-99 mg/dL Glucose High Blood 175 LAB BUN(LOINC) 7-18 mg/dL BUN High Blood 47 LAB CREA(LOINC 0.67-1.17 mg/dL ) High Creatinine Blood 1.63 LAB CA(LOINC) 8.5-10.1 mg/dL Low Calcium Blood 7.8 LAB ALB(LOINC) 3.4-5.0 g/dL Low Albumin Blood 1.4 LAB PHOS(LOINC 2.5-4.9 mg/dL ) Phosphorus Blood 2.8 Performed By: #### RENAL #### [facility] [address] [id number] MAGNESIUM BLOOD Collected: 01/25/2018 Status: F Source: [facility] 10:35 PM HEALTH SYSTEM REPOSITORY TYPE CODE TESTS RESULT OUT OF REFERENCE UNITS RANGE LAB MAG(LOINC) 1.6-2.6 mg/dL Magnesium Blood 2.5 Performed By: #### MAG #### [facility] [address] [id number] [facility] Observed: 01/25/2018 Status: COMPLETED Source: [place] 10:14 PM CLINIC OTHER CAMPUS REPOSITORY HNO ID: [id number] Author: Chaplain Barbosa (Chaplain) Service: Spiritual Care Author Type: Envelope Stamping Machine Operator Type: Allied [facility] Filed: 01/25/2018 10:21 PM Note Text: SPIRITUALCARE Spiritual Care Visit- Brief Note Name: Naveen Akins Date: January 25, 2018 Notes: While making rounds [employer] [facility] receptionist visited Pt's family in 3rd floor WR. Family stated they are praying for a miracle. Envelope Stamping Machine Operator provided spiritual comfort and supportive presence. Per families request retail center receptionist offered bedside prayers with Pt's RN present. Pt's RN indicated the Pt's condition is critical. Envelope Stamping Machine Operator provided SC/supprt and encouragement for Pt's RN. Envelope Stamping Machine Operator later returned and presented Pt's family with a Prayer [place]. Pt's family grateful for spiritual care/support, chaplains availability and prayer blanket. Envelope Stamping Machine Operator to remain available. Envelope Stamping Machine Operator Signature: Chaplain Familia To contact the Spiritual Care Department: Please call [phone] or Page the On-Call Envelope Stamping Machine Operator at pager [phone] Thank you for the opportunity to be of service. This is an electronically created document. IF PRINTED, PLEASE DO NOT REMOVE FROM THE CHART OR MODIFY PRINTED COPY. PROGRESS Observed: 01/25/2018 Status: COMPLETED Source: [place] 9:32 PM CLINIC OTHER CAMPUS REPOSITORY HNO ID: [id number] Author: Jocelynn Chance Service: General Surgery Author Type: Resident Type: Progress Notes Filed: 01/25/2018 9:38 PM Note Text: Was paged by nursing staff regarding patient's NG output. She states that she flushed his NGT and it began dumping a brown, blood tinged bilious fluid. The NGT was placed to continuous suction for a short period of time as the patient had backup around the NGT as well. To this point the patient has put out 850 cc from the NGT and the output has slowed. The NG is back to LIWS and the output is a blood tinged bilious appearing fluid. A CBC is pending and his protonix has been increased to 40 mg BID. His abdomen remains soft, non-distended with retention sutures in place. Jocelynn Chance MD General Surgery Chief Resident January 25, 2018 9:37 PM [facility] #: Pager: [phone] MAGNESIUM BLOOD Collected: 01/25/2018 Status: F Source: [facility] 5:53 PM HEALTH SYSTEM REPOSITORY TYPE CODE TESTS RESULT OUT OF REFERENCE UNITS RANGE LAB MAG(LOINC) 1.6-2.6 mg/dL Magnesium Blood 2.6 Performed By: #### MAG #### [facility] [address] [address] RENAL PANEL Collected: 01/25/2018 Status: F Source: [facility] 5:53 PM HEALTH SYSTEM REPOSITORY TYPE CODE TESTS RESULT OUT OF REFERENCE UNITS RANGE LAB NA(LOINC) 136-145 mEq/L Sodium Blood 137 LAB K(LOINC) 3.5-5.1 mEq/L Potassium Blood 4.7 LAB CL(LOINC) 98-107 mEq/L Chloride Blood 106 LAB CO2(LOINC) 21-32 mEq/L CO2 Blood 21 LAB GLU(LOINC) 70-99 mg/dL Glucose High Blood 171 LAB BUN(LOINC) 7-18 mg/dL BUN High Blood 53 LAB CREA(LOINC 0.67-1.17 mg/dL ) High Creatinine Blood 1.56 LAB CA(LOINC) 8.5-10.1 mg/dL Low Calcium Blood 7.7 LAB ALB(LOINC) 3.4-5.0 g/dL Low Albumin Blood 1.5 LAB PHOS(LOINC 2.5-4.9 mg/dL ) Phosphorus Blood 3.0 Performed By: #### RENAL #### [facility] [address] [address] ABDOMEN 1 VIEW Observed: 01/25/2018 Status: F Source: [facility] 4:22 PM HEALTH SYSTEM REPOSITORY Performed at [facility] APPROVED BY: Teddy Mota MD EXAM TITLE: ABDOMEN 1 VIEW DATE: 01/25/2018 16:19 COMPARISON: 01/23/2018 CLINICAL INDICATION/HISTORY: Nausea and vomiting TECHNIQUE: A single portable view of the abdomen is presented. FINDINGS/ impression: NG tube tip is in the distal stomach. Numerous surgical clips throughout the abdomen. Bilateral femoral line catheters. Mild degree of nonspecific gaseous distention of the colon and small bowel There is no abnormal calcifications. The bony structures appear intact. BLOOD GAS ARTERIAL Collected: 01/25/2018 Status: F Source: [facility] 4:00 PM HEALTH SYSTEM REPOSITORY TYPE CODE TESTS RESULT OUT OF REFERENCE UNITS RANGE LAB FIO2(LOINC % ) FIO2 40 LAB TEMPA(LOIN C) Temperature 35.4 LAB PH(LOINC) 7.350-7.450 pH Arterial High 7.478 LAB PCO2(LOINC 36.0-46.0 mm Hg ) Low PCO2 Arterial 28.3 LAB PO2(LOINC) 85.0-96.0 mm Hg Low PO2 Arterial 79.2 LAB HCO3A(LOIN 22.0-26.0 mEq/L C) Low HCO3- 20.8 LAB O2%A(LOINC 95.0-98.0 % ) O2% Sat Arterial 97.1 LAB BASEX(LOIN -2.5 to 2.5 mEq/L C) Base Excess -2.2 Performed By: #### ABG #### [facility] [address] [address] PROGRESS Observed: 01/25/2018 Status: COMPLETED Source: [place] 3:47 PM CLINIC OTHER CAMPUS REPOSITORY HNO ID: [id number] Author: Paulo Lovelace (Cns) Service: Critical Care Author Type: Nurse Specialist Type: Progress Notes Filed: 01/25/2018 4:08 PM Note Text: MICU - PROGRESS NOTE SERVICE DATE: 01/25/2018 SERVICE TIME: 3:48 PM Admission Date: 01/12/2018 AGE: [id number] year old LOS: 13 days Subjective REASON FOR ICU ADMISSION: Respiratory Failure Objective PROBLEMS: ACTIVE PROBLEM LIST Gallstone Pancreatitis Ruptured Abdominal Aortic Aneurysm (Aaa) (Hcc) Dic (Disseminated Intravascular Coagulation) (Hcc) Hemorrhagic Shock (Hcc) Acute Respiratory Failure (Hcc) Cardiac Arrest (Hcc) Hypernatremia Hypokalemia Hypomagnesemia Hypophosphatemia Hyperchloremia Encephalopathy Aaa (Abdominal Aortic Aneurysm, Ruptured) (Hcc) Obesity, Class I, Bmi 30-34.9 PAST MEDICAL HISTORY Diagnosis Date - DIC (disseminated intravascular coagulation) (HCC) 01/12/2018 PAST SURGICAL HISTORY Procedure Laterality Date - LAP CHOLECYSTECT/CHOLANGIOGRAPHY 05-28-09 - REPAIR UMBILICAL NATAN,5+Y/O,REDUC 05-28-09 Social History Marital status: Spouse name: Shelly Years of education: 11 Number of children: 4 Occupational History 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 BP 132/57 Pulse 110 Temp (Src) 98.1 (Axillary) Resp 38 Ht 5' 8 (1.73m) Wt 185 lb 3 oz (84.0kg) SpO2 92% BMI 28.16 kg/(m2). Temp (24hrs), Av.4 ?C (97.6 ?F), Min:36.1 ?C (97 ?F), Max:36.8 ?C (98.2 ?F) NET FLUID BALANCE Intake/Output Summary (Last 24 hours) at 01/25/18 1548 Last data filed at 01/25/18 1300 Gross per 24 hour Intake 2597.4 ml Output 3173 ml Net -575.6 ml MEDICATIONS Current Facility-Administered Medications: ipratropium-albuterol 3 mL nebulizer solution (DUONEB) 3 mL INHALATION q 4 H budesonide 0.5 mg/2 mL 0.5 mg (PULMICORT) 0.5 mg INHALATION BID metoclopramide HCl 5 mg injection (REGLAN) 5 mg INTRAVENOUS q 6 H Parenteral Nutrition - Adult INTRAVENOUS ONCE TPN (1800 START) midazolam 100 mg in D5W 100 mL (VERSED) 1-10 mg/hr INTRAVENOUS CONTINUOUS docusate sodium oral liquid 100 mg/10 mL (DIOCTO,COLACE) 100 mg OROGASTRIC BID hydrocortisone sodium succinate (PF) 50 mg injection (Solu- CORTEF) 50 mg INTRAVENOUS q 12 H senna leaf extract 176 mg/5 mL 528 mg 15 mL OROGASTRIC BID carboxymethylcellulose sodium 1-2 Drop (CELLUVISC) 1-2 Drop BOTH EYES PRN polyvinyl alcohol-povidone 1.4-0.6 % 1 Drop (REFRESH) 1 Drop BOTH EYES QID PRN heparin 1,000 unit/mL 4,000 Units injection 4,000 Units INTRAVENOUS 3 Times weekly with dialysis heparin 5,000 Units injection 5,000 Units SUBCUTANEOUS q 12 H NaCl 0.9% 1,000 mL iv bolus 1,000 mL INTRAVENOUS PRN DIALYSIS prismaSOL BGK 4 K / 2.5 mEq Ca/Liter 5,000 mL 5,000 mL HEMODIALYSIS continuous (no dispense) prismaSOL BGK 4 K / 2.5 mEq Ca/Liter 5,000 mL 5,000 mL HEMODIALYSIS continuous (no dispense) prismaSOL BGK 4 K / 2.5 mEq Ca/Liter 5,000 mL 5,000 mL HEMODIALYSIS continuous (no dispense) dextrose 40 % 15 g 15 g ORAL PRN Or glucagon 1 mg injection (GLUCAGEN) 1 mg INTRAMUSCULAR PRN Or dextrose 50% in water 25 mL syringe 12.5 g INTRAVENOUS PRN magnesium sulfate 1 g in D5W 100 mL 1 g INTRAVENOUS PRN magnesium sulfate in water 2 g in sterile water 50 ml 2 g INTRAVENOUS PRN fentaNYL 20 mcg/mL iv infusion in NaCl 0.9% 100 mL 0-200 mcg/hr INTRAVENOUS CONTINUOUS pantoprazole 40 mg injection (PROTONIX) 40 mg INTRAVENOUS DAILY (6 AM) NORepinephrine 16 mg in D5W 250 mL (LEVOPHED) 0-30 mcg/min INTRAVENOUS CONTINUOUS Chlorhexidine Gluconate 0.12 % 15 mL (PERIDEX) 15 mL ORAL q 12 H Lines, Drains, and Airways Line Arterial Line 01/19/18 0840 Arterial Line Right Radial 6 days Central Line Quadruple Lumen 01/19/18 1056 Right Neck 6 days Dialysis / Apheresis Double Lumen 01/24/18 1400 Non-tunneled Right Groin 1 day Drain GI Feed/Drain 01/12/18 0100 13 days Drain/Tube 01/19/18 1015 Midline Abdomen 6 days Airway Airway Endotracheal Tube 01/12/18 1138 13 days PHYSICAL EXAM PERFORMED: Cardiovascular: Regular rhythm Respiratory: Reduced breath sounds bilat %FIO2 Min: 40 Max: 50 Abdomen: Distended Extremities: Edema- Yes Generalized edema Neurologic: Unresponsive -off sedation Respiratory/Nursing Documentation: O2 Therapy: Ventilator (01/25/181138) Invasive Ventilator Mode: Pressure Regulated Volume Control (01/25/181138) Set Ventilator Respiratory Rate (BPM): 18 (01/25/18 113) Total Respiratory Rate (BPM): 38 (01/25/181138) Tidal Volume Set (mL): 480 (01/25/181138) Exhaled Tidal Volume (mL): 470 (01/25/18 113) Minute Volume (L): 15.9 (01/25/18 113) Peak Inspiratory Pressure (cm H2O): 22 (01/25/18 113) PEEP/CPAP (cm H2O): 5 (01/25/181138) HEMODYNAMIC DATA: Reviewed NUTRITION: Enteral Feeds: TPN NPO DATA: Diagnostic tests reviewed for today's visit, films/specimens were personally reviewed by me: Most recent labs and imaging results. LABS: Recent Labs 01/25/18 0425 01/24/18 0420 01/23/18 1020 WBC 15.78* < > 13.44* < > -- RBC 3.68* < > 2.48* < > -- HB 10.4* < > 7.1* < > -- HCT 31.7* < > 21.8* < > -- MCV 86.1 < > 87.9 < > -- PLT 145 < > 141 < > -- GLUC 147* -- 189* -- -- BUN 58* -- 57* -- -- CREAT 1.68* -- 1.80* -- -- NA 139 -- 141 -- -- K 4.2 -- 4.5 -- -- CHLOR 107 -- 106 -- -- CO2 20* -- 23 -- -- TPROT -- -- 5.0* -- -- ALB -- -- 1.3* -- -- CA 7.4* -- 7.2* -- -- ALKPHOS -- -- 297* -- -- TBILI -- -- 6.3* -- -- AST -- -- 132* -- -- ALT -- -- 103* -- -- PTSEC -- -- 10.6 -- 10.0 APTT -- -- -- -- 23.9 INR -- -- 1.00 -- 0.93 MG 2.6 -- 2.7* -- -- < > = values in this interval not displayed. ABG: Recent Labs 01/25/18 0425 01/24/18 2230 01/24/18 1820 PH 7.466* 7.443 7.420 PO2 78.4* 77.4* 97.6* PCO2 31.4* 30.2* 33.6* Assessment/Plan IMPRESSION: Critical Care Documentation: The patient has the following organ/system impairment(s): ? 1.Acute hypoxic respiratory failure/ARDS/Bilat pleuaral effusions-remains intubated on 40% FIO2 2. Ruptured AAA ?Sp repair-Wound closed vac in place draining sm amt serosanguinous drainage 3.SP cardiac arrest 4.Shock-Levophed support at 6 mcg 5. Pt is nonresponsive-even to noxious stimuli-Encephalopathy 6.Thrombocytopenia-platelet 145,000 7.Nutritional support-TPN 8.Sinus tachycardia-SVT resolved 9.TERENCE on CKD-on CRRT 10. Fentanyl drip at 150mcg/kh for pain control 11. Suspect ileus-emesis of bile colored gastric fluid this morning-OG has been to suction and 500ml gastric fluid has drained-tube feedings have been discontinued-he did have a bowel movement 12. Acute blood loss anemia This patient has a high probability of sudden, clinically significant deterioration, which requires the highest level of physician preparedness to intervene urgently. I managed/supervised life or organ supporting interventions that required frequent physician assessment. I devoted my full attention to the direct care of this patient for the amount of time indicated below. Time I spent with family or surrogate(s) is included only if the patient was incapable of providing the necessary information or participating in medical decision making. Time devoted to teaching is not included. Discussed with staff/patient/family Time spent providing critical care services: 40 minutes excluding procedures. SIGNATURE: Paulo Lovelace APRN.MAINTENANCE TEAM MEMBER PATIENT NAME: Naveen Akins DATE: January 25, 2018 TIME: 3:48 PM PROGRESS Observed: 01/25/2018 Status: COMPLETED Source: [place] 3:07 PM CLINIC OTHER CAMPUS REPOSITORY HNO ID: [id number] Author: Noel Garcia MD Service: Neurology General Author Type: Resident Type: Progress Notes Filed: 01/27/2018 11:41 PM Note Text: NEUROLOGY CONSULT PROGRESS NOTE SERVICE DATE: 01/25/2018 Current Attending Provider: Venkat Paniagua Subjective HPI: Naveen Akins is a 77 year old male?transferred in critical condition from [facility] with diagnosed ruptured AAA. Patient was life-flighted to [facility], intubated at outside facility. Per transport, patient went into cardiac arrest immediately prior to arrival and CPR was initiated. 4 U prbc given prior to arrival. Patient was taken emergently to OR on arrival. CPR was continued en route. ? Hospital course: Patient's ruptured AAA was repaired and has received countless blood product transfusions. He remains intubated, sedated and requiring new TPN and CRRT. Pt was on EEG for 5 days showing severe diffuse encephalopathy. No epileptiform discharges or EEG seizures were recorded. Interval History: Today, Naveen is not changed. Objective Physical Examination: Neurological: ? Sedation off ? Mental Status: Does not follow commands. Cranial Nerves: CNII: unable to assess CNIII, IV, : Pupils equal, round and reactive to light CN IX: Gag Reflex intact CN X: Cough intact ? Motor Exam: ? Muscle Tone: Flaccid New Labs: WBC (thou/cmm) Date Value 01/25/2018 15.78 01/24/2018 16.37 01/24/2018 13.44 RBC (mil/cmm) Date Value 01/25/2018 3.68 01/24/2018 3.66 01/24/2018 2.48 Platelet Count (thou/cmm) Date Value 01/25/2018 145 01/24/2018 157 01/24/2018 141 BUN (mg/dL) Date Value 01/25/2018 58 01/24/2018 57 01/23/2018 54 Creatinine (mg/dL) Date Value 01/25/2018 1.68 01/24/2018 1.80 01/23/2018 1.75 CBC, Coags, BMP, Mg, Phos Recent Labs 01/25/18 0425 01/24/18 0420 01/23/18 1020 01/23/18 0435 INR -- 1.00 0.93 -- APTT -- -- 23.9 -- NA 139 141 -- 139 K 4.2 4.5 -- 5.0 CHLOR 107 106 -- 106 CO2 20* 23 -- 22 GLUC 147* 189* -- 234* CA 7.4* 7.2* -- 7.4* MG 2.6 2.7* -- 2.8* P 2.9 3.5 -- 4.7 Liver Function, Amylase, AND Lipase Recent Labs 01/24/18 0420 01/23/18 0435 01/22/18 1800 TPROT 5.0* 5.5* -- ALB 1.3* 1.4* 1.5* ALT 103* 87* -- AST 132* 127* -- ALKPHOS 297* 344* -- TBILI 6.3* 7.2* -- BEM Reading: No seizures DATA: Diagnostic tests reviewed for today's visit: Most recent labs and imaging results. Impression/Recommendations Naveen Akins, a 77 year old male s/p AAA rupture in multi-system failure. Discussed at length ? - Suspected hypoxic-ischemic encephalopathy. Recommend MRI when patient is stable for MRI for prognosis - Likely very poor prognosis given multiple system failure SIGNATURE: Noel Garcia MD PATIENT NAME: Naveen Akins DATE: January 25, 2018 TIME: 3:07 PM PAGER/CONTACT #: [phone] CASE MANAGEM Observed: 01/25/2018 Status: COMPLETED Source: [place] 1:17 PM CLINIC OTHER CAMPUS REPOSITORY HNO ID: [id number] Author: Lorrie Garcia) MAGALY Bo Service: (none) Author Type: Registered Nurse Type: Care Mgt Progress Note Filed: 01/25/2018 1:26 PM Note Text: CARE MANAGEMENT PROGRESS NOTE SERVICE DATE: 01/25/2018 SERVICE TIME: 1:18 PM LOS: 13 days FREEDOM OF CHOICE GIVEN: Yes ltac choice list discussed and declined list Preference: Select Needs Prior to Discharge: To Be Determined Lengthy discussion in waiting area with and two sons Gilbert and Manjit and dght Ruth. Has other dght not present. Discussed consult to ENT for pursuit of trach (informed by nsg and packing room worker) which they seem agreeable to. Anticipate ltach level of care so discussed with them and there has been referral made by ICU. Much emotional support given. Pt currently not ready or stable for Ltach but did make referral and to follow. Pt would not need precert. They currently are leaving in hands of God and wish to speak with physicians especially want to talk with neurology to make informed decision. Discussed with nsg will ntf Neurology family request discussion with them. SIGNATURE: Lorrie Bo RN PATIENT NAME: Naveen Akins DATE: January 25, 2018 TIME: 1:17 PM PAGER/CONTACT #: [phone] PROGRESS Observed: 01/25/2018 Status: COMPLETED Source: [place] 1:04 PM [facility] OTHER CAMPUS REPOSITORY O ID: [id number] Author: Dionicio Stevens Service: Vascular Surgery Author Type: Resident Type: Progress Notes Filed: 01/25/2018 1:23 PM Note Text: Attestation signed by Venkat Paniagua at 01/27/2018 9:29 AM I saw and evaluated the patient. Discussed with the resident and agree with resident's findings and plan as documented in the resident's note. Vascular Surgery Progress Note SERVICE DATE: 01/25/2018 Vascular AND Thoracic Surgery Service Pager: For questions or concerns Mon-Fri 6a-5p please page [phone]. After 5pm and on Weekends and Holidays, please page [phone] if in ICU or [phone] if on RNF. Subjective SUBJECTIVE: NAEON, Levo off, Propofol/Precedex off, Versed started, increased secretions Diet: DIET TUBE FEED - CONTIN (NO TRAY) DIET NPO Parenteral Nutrition - Adult Objective OBJECTIVE: Vitals: Temp (24hrs), Av.4 ?C (97.6 ?F), Min:36.1 ?C (97 ?F), Max:36.8 ?C (98.2 ?F) BP 132/57 Pulse 106 Temp 36.4 ?C (97.5 ?F) Resp 26 Ht 172.7 cm (5' 8) Wt 84 kg (185 lb 3 oz) SpO2 96% BMI 28.16 kg/m? O2 Therapy: Ventilator IANDO: Date 01/24/18699 - 01/25/1865801/25/18699 - 01/26/18 0659 Shift 6148-9647 6750-8404 8464-9513 24 Hour Total 5320-9374 6438-5052 7103-7013 24 Hour Total I N T A K E PO 108 232 340 217 217 Tube Feed Intake (GI Feed/Drain ) 108 232 340 217 217 IV 506.7 138.3 645 73.6 73.6 NS 0.9% 159.9 29 188.9 Fentanyl Volume 80.8 57.9 138.7 39.8 39.8 Dexmedetomidine IV 100 100 NORepinephrine Volume 40 40 Midazolam Volume 26 51.4 77.4 33.8 33.8 Propofol IV 100 100 TPN/PPN 237.5 487.6 725.1 351.7 351.7 TPN 237.5 487.6 725.1 351.7 351.7 Irrigants 120 40 160 85 85 Irrigant/Flush Amount In (GI Feed/Drain ) 120 40 160 85 85 Shift Total 972.2 897.9 1870.1 727.3 727.3 O U T P U T Urine 150 50 200 0 0 Void (ml) 150 50 200 0 0 Drains 0 0 Negative Pressure: Output (mL) (Negative Pressure Wound Therapy 01/12/18 0749 Abdomen) 0 0 Tubes 0 20 0 20 220 220 Drain/Tube Output (Drain/Tube 01/19/18 1015 Midline Abdomen) 0 20 0 20 20 20 Output (GI Feed/Drain 01/12/18 0100) 200 200 # of BMs Number of BMs 0 x 0 x 0 x 0 x 0 x Dialysis 457 234 2167 2350 976 976 Dialysis Output (Ultrafiltration) 233 269 8391 2350 976 976 Shift Total 553 465 3681 2570 1196 1196 Weight (kg) 83.6 83.6 84 84 84 84 84 84 MEDICATIONS Current Facility-Administered Medications: ipratropium-albuterol 3 mL nebulizer solution (DUONEB) 3 mL INHALATION q 4 H budesonide 0.5 mg/2 mL 0.5 mg (PULMICORT) 0.5 mg INHALATION BID metoclopramide HCl 5 mg injection (REGLAN) 5 mg INTRAVENOUS q 6 H midazolam 100 mg in D5W 100 mL (VERSED) 1-10 mg/hr INTRAVENOUS CONTINUOUS docusate sodium oral liquid 100 mg/10 mL (DIOCTO,COLACE) 100 mg OROGASTRIC BID hydrocortisone sodium succinate (PF) 50 mg injection (Solu- CORTEF) 50 mg INTRAVENOUS q 12 H senna leaf extract 176 mg/5 mL 528 mg 15 mL OROGASTRIC BID carboxymethylcellulose sodium 1-2 Drop (CELLUVISC) 1-2 Drop BOTH EYES PRN polyvinyl alcohol-povidone 1.4-0.6 % 1 Drop (REFRESH) 1 Drop BOTH EYES QID PRN heparin 1,000 unit/mL 4,000 Units injection 4,000 Units INTRAVENOUS 3 Times weekly with dialysis heparin 5,000 Units injection 5,000 Units SUBCUTANEOUS q 12 H NaCl 0.9% 1,000 mL iv bolus 1,000 mL INTRAVENOUS PRN DIALYSIS prismaSOL BGK 4 K / 2.5 mEq Ca/Liter 5,000 mL 5,000 mL HEMODIALYSIS continuous (no dispense) prismaSOL BGK 4 K / 2.5 mEq Ca/Liter 5,000 mL 5,000 mL HEMODIALYSIS continuous (no dispense) prismaSOL BGK 4 K / 2.5 mEq Ca/Liter 5,000 mL 5,000 mL HEMODIALYSIS continuous (no dispense) dextrose 40 % 15 g 15 g ORAL PRN Or glucagon 1 mg injection (GLUCAGEN) 1 mg INTRAMUSCULAR PRN Or dextrose 50% in water 25 mL syringe 12.5 g INTRAVENOUS PRN magnesium sulfate 1 g in D5W 100 mL 1 g INTRAVENOUS PRN magnesium sulfate in water 2 g in sterile water 50 ml 2 g INTRAVENOUS PRN fentaNYL 20 mcg/mL iv infusion in NaCl 0.9% 100 mL 0-200 mcg/hr INTRAVENOUS CONTINUOUS pantoprazole 40 mg injection (PROTONIX) 40 mg INTRAVENOUS DAILY (6 AM) NORepinephrine 16 mg in D5W 250 mL (LEVOPHED) 0-30 mcg/min INTRAVENOUS CONTINUOUS Chlorhexidine Gluconate 0.12 % 15 mL (PERIDEX) 15 mL ORAL q 12 H Labs: Recent Labs 01/25/18 0425 01/24/18 2230 01/24/18 1820 01/24/18 0420 01/23/18 1020 01/23/18 0435 NA 139 -- -- -- 141 -- -- 139 K 4.2 -- -- -- 4.5 -- -- 5.0 CHLOR 107 -- -- -- 106 -- -- 106 CO2 20* -- -- -- 23 -- -- 22 BUN 58* -- -- -- 57* -- -- 54* CREAT 1.68* -- -- -- 1.80* -- -- 1.75* GLUC 147* -- -- -- 189* -- -- 234* ANION 16 -- -- -- 17* -- -- 16 CA 7.4* -- -- -- 7.2* -- -- 7.4* MG 2.6 -- -- -- 2.7* -- -- 2.8* P 2.9 -- -- -- 3.5 -- -- 4.7 ALB -- -- -- -- 1.3* -- -- 1.4* AST -- -- -- -- 132* -- -- 127* ALT -- -- -- -- 103* -- -- 87* ALKPHOS -- -- -- -- 297* -- -- 344* TBILI -- -- -- -- 6.3* -- -- 7.2* WBC 15.78* -- 16.37* -- 13.44* < > -- 15.80* HB 10.4* -- 10.4* < > 7.1* < > -- 8.0* HCT 31.7* -- 31.9* -- 21.8* < > -- 24.0* PLT 145 -- 157 -- 141 < > -- 130* INR -- -- -- -- 1.00 -- 0.93 -- PH 7.466* 7.443 7.420 < > 7.418 < > -- 7.399 PCO2 31.4* 30.2* 33.6* < > 35.1* < > -- 35.3* PO2 78.4* 77.4* 97.6* < > 173.6* < > -- 204.9* BE -1.0 -3.2 -2.5 < > -2.1 < > -- -3.1 < > = values in this interval not displayed. Exam: GENERAL: No distress NEURO: Sedated, not following commands HEENT: normocephalic, atraumatic, pupils reactive, +icterus LUNGS: Unlabored breathing O2 Therapy: Ventilator CARDIAC: Regular rate and rhythm as above ABDOMEN: Soft, non-tender, non-distended, VAC and retention sutures intact EXTREMITIES: MAK, No deformities, palpable pulses SKIN: Skin texture, turgor normal, No rashes or lesions, +jaundice ASSESSMENT AND PLAN: Active Hospital Problems Diagnosis Date Noted - Ruptured abdominal aortic aneurysm (AAA) ([facility]) 01/12/2018 - Obesity, Class I, BMI 30-34.9 01/16/2018 - Encephalopathy 01/13/2018 - DIC (disseminated intravascular coagulation) ([facility]) 01/12/2018 - Hemorrhagic shock ([facility]) 01/12/2018 - Acute respiratory failure ([facility]) 01/12/2018 - Cardiac arrest ([facility]) 01/12/2018 - Hypernatremia 01/12/2018 - Hypokalemia 01/12/2018 - Hypomagnesemia 01/12/2018 - Hypophosphatemia 01/12/2018 - Hyperchloremia 01/12/2018 - AAA (abdominal aortic aneurysm, ruptured) ([facility]) 01/12/2018 Overview Note: Added automatically from request for surgery [id number] 77 year old male with Ruptured AAA s/p Emergent Repair, takeback washout, repair of serosal tears x2, on 01/12, hemorrhagic shock, acute resp failure with pulm edema, TERENCE, SVT, s/p Third Look Laparotomy and?washout on 01/14, fourth look, washout, vac change on 01/16, Partial fascial closure on 01/19 ? - Vent mgmt per MICU - Advance TFs to goal as tolerated, wean TPN - Acute blood loss and dilutional anemia and thrombocytopenia - monitor, transfuse prn - TERENCE -->?CVVHD per?Nephro, diurese as tolerates - CXR w bilateral opacities - SpCx pending--> consider empiric Abx for HCAP per MICU - cont scrotal support - Cont WV --> wound care following for VAC changes - Hyperbilirubinemia and Transaminitis --> trend LFTs, Abd US WNL - Solucortef 50mg q8h per MICU - Leukocytosis - reactive and steroid related, afebrile, monitor - Trach/PEG Tuesday ?? Assessment and plan discussed with attending: Dr. Paniagua SIGNATURE: Dionicio Stevens MD PATIENT NAME: Naveen Akins DATE: January 25, 2018 TIME: 1:04 PM Vascular AND Thoracic Surgery Service Pager: For questions or concerns Tue-Tue 6a-5p please page [phone]. After 5pm and on Weekends and Holidays, please page [phone] if in ICU or [phone] if on RNF. NUTRITION Observed: 01/25/2018 Status: COMPLETED Source: [place] 11:41 AM CLINIC OTHER CAMPUS REPOSITORY HNO ID: [id number] Author: Viry Mosher RD Service: NST-Nutrition Support Team Author Type: Registered Dietitian Type: Nutrition Filed: 01/25/2018 11:53 AM Note Text: Attestation signed by Perla Dudley at 01/25/2018 9:06 PM Discussed with the RD and agree with RD's findings and plan as documented in the RD's note. Cont TPN; not yet tolerating enteral feeds Perla Dudley MD NUTRITION SUPPORT TEAM TOPIC: NUTRITION SUPPORT TEAM PROGRESS NOTE PATIENT NAME: Naveen Akins DATE OF : 1940 DATE: 01/25/2018 Nutritional Status: NO MALNUTRITION IDENTIFIED per RD 01/16/18 ? ? NUTRITION CARE PLAN: ? Problem, Etiology and Signs/Symptoms: Altered GI function related to potential ileus?as evidenced by lack of bowel sounds, distended abdomen, and hypotension. ? NST consult 01/16/18 for TPN support Interval History: LOS d 13, tolerating TPN, had been tolerating TF @ 40 cc/hr until just now--> + emesis, residuals low, no BM, appears to have the hiccups Assessment: 77 year old male with Ruptured AAA s/p Emergent Repair, takeback washout, repair of serosal tears x2, on 01/12, hemorrhagic shock, acute resp failure with pulm edema, TERENCE, SVT s/p Third Look Laparotomy and?washout on 01/14, fourth look, washout, vac change on 01/16 ?remains on vent, continues on CRRT 01/19 ?X lap, wash out, partial fascial closure, wound vac change 01/20 pressors weaned off Remains on diprivan gtt 01/20 rt thoracentesis- breathing better 01/21 limited abdominal x lap and closure 01/22 levo at pm restarted 01/23 neuro consult, ? plans for trach/Peg 01/24 new femoral HD line per nephrology, working good 01/25 + emesis ? ? Tmax: 36.8 WBC: increasing to 15.78 Edema: 3+ UE, LE Lines: Art Line, Quad lumen, HD cath, all WNL Lytes: reviewed PAB: improved to 18.6 WT: ?84.0 kg ( down from 104 kg) GFR: 39.72 Trig : 560--> diprivan dc'd, lipid in TPN dc'd as well ? Recommendations: TPN renewed: increased pro, dextrose and insulin , added phos, adjusted Cl/CO 2, ? TPN script: 1.5 L /24 hrs providing 1660 calories ( 20 kcals/kg ABW 84 kg) and 90 gms pro ( ~ 1.0 gms/kg ABW 84 kg) per day ? CHO:insulin ratio is ?10.9:1 , with 382 gms CHO in TPN , 35 units in TPN bag ? Impact 1.5 at 50-60 ?cc/hr is goal-->?provides 2822-6358 calories and 113-135 pro , currently at 40 cc/hr, advance slowly, now on hold d/t + emesis ? Diprivan dc'd d/t high trig?, now on fentanyl Collaborated with Dr Dudley and orders written. Vitals: Temperature Max in 24 hours: Temp (24hrs), Av.4 ?C (97.6 ?F), Min:36.1 ?C (97 ?F), Max:36.8 ?C (98.2 ?F) Current Vital Signs: BP 132/57 Pulse (P) 107 Temp 36.1 ?C (97 ?F) Resp (!) (P) 31 Ht 172.7 cm (5' 8) Wt 84 kg (185 lb 3 oz) SpO2 (P) 95% BMI 28.16 kg/m? Current Weight: Weight: 84 kg (185 lb 3 oz) Intake AND Output: Intake/Output Summary (Last 24 hours) at 01/25/18 1142 Last data filed at 01/25/18 0900 Gross per 24 hour Intake 2265.4 ml Output 2436 ml Net -170.6 ml Laboratory Data: Recent Labs 01/25/18 0425 01/24/18 0420 01/23/18 0435 01/22/18 1800 NA 139 141 139 139 K 4.2 4.5 5.0 4.9 CHLOR 107 106 106 105 CO2 * 23 22 21 CREAT 1.68* 1.80* 1.75* 1.78* BUN 58* 57* 54* 53* GLUC 147* 189* 234* 216* P 2.9 3.5 4.7 4.4 TPROT -- 5.0* 5.5* -- ALB -- 1.3* 1.4* 1.5* MG 2.6 2.7* 2.8* 2.8* CA 7.4* 7.2* 7.4* 7.6* Recent Labs 01/23/18 1655 PREALB 18.6* Viry Mosher RD, LD, [facility] Pager: [phone] Increments: 3 PROGRESS Observed: 01/25/2018 Status: COMPLETED Source: [place] 11:08 AM CLINIC OTHER CAMPUS REPOSITORY HNO ID: [id number] Author: Shen Lorenzo Service: Nephrology Author Type: Physician Type: Progress Notes Filed: 01/25/2018 11:20 AM Note Text: Nephrology Progress Note Following for TERENCE. Pt is intubated. Remains on ventilator. Sedated. Cannot do ROS. Current Inpatient Medications: Current Facility-Administered Medications Ordered in [facility]: ipratropium-albuterol 3 mL nebulizer solution (DUONEB) 3 mL INHALATION q 4 H Dorcas Palafox budesonide 0.5 mg/2 mL 0.5 mg (PULMICORT) 0.5 mg INHALATION BID Dorcas Palafox [START ON 01/26/2018] hydrocortisone sodium succinate (PF) 25 mg injection (Solu-CORTEF) 25 mg INTRAVENOUS q 12 H Dorcas Palafox metoclopramide HCl 5 mg injection (REGLAN) 5 mg INTRAVENOUS q 6 H Dorcas Palafox midazolam 100 mg in D5W 100 mL (VERSED) 1-10 mg/hr INTRAVENOUS CONTINUOUS Dorcas Palafox Last Rate: 6 mL/hr at 01/25/18 0800 6 mg/hr at 01/25/18 0800 docusate sodium oral liquid 100 mg/10 mL (DIOCTO,COLACE) 100 mg OROGASTRIC BID Dorcas Mike Decoy 100 mg at 01/24/18 214 hydrocortisone sodium succinate (PF) 50 mg injection (Solu- CORTEF) 50 mg INTRAVENOUS q 12 H Dorcas Mike Decoy 50 mg at 01/24/18 1512 senna leaf extract 176 mg/5 mL 528 mg 15 mL OROGASTRIC BID Dionicio (Res) Stevens 528 mg at 01/24/18 2145 carboxymethylcellulose sodium 1-2 Drop (CELLUVISC) 1-2 Drop BOTH EYES PRN Venkat Paniagua 1 Drop at 01/24/18 1543 polyvinyl alcohol-povidone 1.4-0.6 % 1 Drop (REFRESH) 1 Drop BOTH EYES QID PRN Paulo ([employer] Supervisor) Hudock 1 Drop at 01/24/18 1511 heparin 1,000 unit/mL 4,000 Units injection 4,000 Units INTRAVENOUS 3 Times weekly with dialysis Troy Godoy 4,000 Units at 01/22/18 2049 heparin 5,000 Units injection 5,000 Units SUBCUTANEOUS q 12 H Mervin (Res) Wally 5,000 Units at 01/24/18 2147 NaCl 0.9% 1,000 mL iv bolus 1,000 mL INTRAVENOUS PRN DIALYSIS Shen Lorenzo prismaSOL BGK 4 K / 2.5 mEq Ca/Liter 5,000 mL 5,000 mL HEMODIALYSIS continuous (no dispense) Shen Lorenzo Last Rate: 800 mL/hr at 01/25/18 0836 5,000 mL at 01/25/18 0836 prismaSOL BGK 4 K / 2.5 mEq Ca/Liter 5,000 mL 5,000 mL HEMODIALYSIS continuous (no dispense) Shen Lorenzo Last Rate: 800 mL/hr at 01/25/18 0835 5,000 mL at 01/25/18 0835 prismaSOL BGK 4 K / 2.5 mEq Ca/Liter 5,000 mL 5,000 mL HEMODIALYSIS continuous (no dispense) Shen Lorenzo Last Rate: 800 mL/hr at 01/25/18 0835 5,000 mL at 01/25/18 0835 dextrose 40 % 15 g 15 g ORAL PRN Jack Regula Or glucagon 1 mg injection (GLUCAGEN) 1 mg INTRAMUSCULAR PRN Jack Regula Or dextrose 50% in water 25 mL syringe 12.5 g INTRAVENOUS PRN Jack Regula magnesium sulfate 1 g in D5W 100 mL 1 g INTRAVENOUS PRN Emilie (Res) Cardella Last Rate: 100 mL/hr at 01/15/18 0016 1 g at 01/15/18 0016 magnesium sulfate in water 2 g in sterile water 50 ml 2 g INTRAVENOUS PRN Emilie (Res) Cardella Last Rate: 25 mL/hr at 01/13/18 1004 2 g at 01/13/18 1004 fentaNYL 20 mcg/mL iv infusion in NaCl 0.9% 100 mL 0-200 mcg/hr INTRAVENOUS CONTINUOUS Dorcas Mike Decoy Last Rate: 7.5 mL/hr at 01/25/18 0800 150 mcg/hr at 01/25/18 0800 pantoprazole 40 mg injection (PROTONIX) 40 mg INTRAVENOUS DAILY (6 AM) Emilie (Res) Cardella 40 mg at 01/25/18 0530 NORepinephrine 16 mg in D5W 250 mL (LEVOPHED) 0-30 mcg/min INTRAVENOUS CONTINUOUS Dionicio (Res) Stevens Stopped at 01/24/18 0900 Chlorhexidine Gluconate 0.12 % 15 mL (PERIDEX) 15 mL ORAL q 12 H Elder Yu) Kalee 15 mL at 01/24/18 2145 No current [facility]-ordered outpatient prescriptions on file. Vitals: BP 132/57 Pulse 100 Temp 36.1 ?C (97 ?F) Resp (!) 32 Ht 172.7 cm (5' 8) Wt 84 kg (185 lb 3 oz) SpO2 96% BMI 28.16 kg/m? BLOOD PRESSURE RANGE: No data recorded. ; No data recorded. 24HR INTAKE/OUTPUT: Intake/Output Summary (Last 24 hours) at 01/25/18 1110 Last data filed at 01/25/18 0900 Gross per 24 hour Intake 2265.4 ml Output 2436 ml Net -170.6 ml Physical exam: Constitutional: ?Sedated Skin: no rash, turgor wnl Heent: ?intubated Neck: no bruits or jvd noted Cardiovascular: ?S1, S2 normal?without m/r/g Respiratory: Coarse breath sound bilaterally Abdomen: ??soft, nt, nd Ext: 2+?lower extremity edema/anasarca Data: Labs: Recent Labs 01/25/18 0425 01/24/18 1820 01/24/18 1139 01/24/18 0420 WBC 15.78* 16.37* -- 13.44* HB 10.4* 10.4* 7.9* 7.1* HCT 31.7* 31.9* -- 21.8* MCV 86.1 87.2 -- 87.9 PLT 145 157 -- 141 Recent Labs 01/25/18 0425 01/24/18 0420 01/23/18 0435 NA 139 141 139 K 4.2 4.5 5.0 CO2 20* 23 22 MG 2.6 2.7* 2.8* BUN 58* 57* 54* CREAT 1.68* 1.80* 1.75* CA 7.4* 7.2* 7.4* Assessment and Plan 1. Acute kidney injury on chronic kidney disease stage 3. Baseline SCr is 1.36 mg/dL on 11/14/17. CKD is likely due to nephrosclerosis related to PAD. TERENCE is 2/2 ischemic ATN from shock. Currently off pressor. Pt may be making more urine (difficult to quantify since he is incontinent). CVVHDF is progressing well. Effluent dose is adequate. Cath flow is good with the new femoral catheter. Continue UF rate at 50 mL/hr since BP is stable (currently off NE gtt).?However, will back off if BP drops. ? 2. Shock. Improved. Initially due to hemorrhagic shock-massive blood loss from ruptured AAA +/- adrenal insufficiency. Currently off?pressor. Continue hydrocortisone. ? 5. Ruptured AAA. s/p repair 01/12/18. Management as per vascular surgery. ? 6. Acute hypoxic respiratory failure. Ventilator dependent. Vent management as per ICU. O>I with CRRT UF. ? 7. Encephalopathy. Neuro evaluation in progress. Please do not hesitate to contact me at [phone] if there is any question or concern. Rosanna Talbert MD (Shen Lorenzo) NURSING PROG Observed: 01/25/2018 Status: COMPLETED Source: [place] 10:23 AM CLINIC OTHER CAMPUS REPOSITORY HNO ID: [id number] Author: Donnell (Rn) Heitzenrater, RN Service: Dialysis Author Type: Registered Nurse Type: Nursing Progress Note Filed: 01/25/2018 10:24 AM Note Text: Nursing Progress Note Patient Name: Naveen Akins [id number] Daily Note: Daily supervision for CRRT tx completed. Discussed tx with MAGALY Song, no complications at this time. Good flows from new femoral CVC. This note was completed by: Donnell Velazco RN PROGRESS Observed: 01/25/2018 Status: COMPLETED Source: [place] 8:51 AM [facility] OTHER CAMPUS REPOSITORY HNO ID: [id number] Author: Dorcas Palafox Service: Critical Care Author Type: Physician Type: Progress Notes Filed: 01/25/2018 11:04 AM Note Text: MICU - PROGRESS NOTE SERVICE DATE: 01/25/2018 SERVICE TIME: 8:52 AM Admission Date: 01/12/2018 AGE: [age] year old LOS: 13 days Subjective REASON FOR ICU ADMISSION: Confusion and Delirium, Renal Failure, Respiratory Failure, Shock and S/P Surgery Somnolent. Will not respond to name. Fentanyl and Versed titrated to respiratory rate with gtts at 100mcg/hr and 6mg/hr, respectively. Secretions thick and creamy from ETTube. VENT: PRVC-18 Vt-450 P-5 FiO2 40% Ve-17.3 SaO2 97%. Objective VITAL SIGNS (last 24hrs min/max): Temp Av.4 ?C (97.6 ?F) Min: 35.6 ?C (96.1 ?F) Max: 36.8 ?C (98.2 ?F) Pulse Av.7 Min: 49 Max: 116 Arterial BP 1 Min: 78/35 Max: 191/87 Cuff No Data Recorded Pain Score: 0/10 Vital signs reviewed. BP 132/57 Pulse 101 Temp (Src) 97.2 (Axillary) Resp 34 Ht 5' 8 (1.73m) Wt 185 lb 3 oz (84.0kg) SpO2 98% BMI 28.16 kg/(m2). Temp (24hrs), Av.4 ?C (97.6 ?F), Min:35.6 ?C (96.1 ?F), Max:36.8 ?C (98.2 ?F) NET FLUID BALANCE Intake/Output Summary (Last 24 hours) at 01/25/18 0852 Last data filed at 01/25/18 0800 Gross per 24 hour Intake 2009.4 ml Output 2713 ml Net -703.6 ml MEDICATIONS Current Facility-Administered Medications: Parenteral Nutrition - Adult INTRAVENOUS ONCE TPN (1800 START) ipratropium-albuterol 3 mL nebulizer solution (DUONEB) 3 mL INHALATION QID midazolam 100 mg in D5W 100 mL (VERSED) 1-10 mg/hr INTRAVENOUS CONTINUOUS docusate sodium oral liquid 100 mg/10 mL (DIOCTO,COLACE) 100 mg OROGASTRIC BID hydrocortisone sodium succinate (PF) 50 mg injection (Solu- CORTEF) 50 mg INTRAVENOUS q 12 H senna leaf extract 176 mg/5 mL 528 mg 15 mL OROGASTRIC BID carboxymethylcellulose sodium 1-2 Drop (CELLUVISC) 1-2 Drop BOTH EYES PRN polyvinyl alcohol-povidone 1.4-0.6 % 1 Drop (REFRESH) 1 Drop BOTH EYES QID PRN heparin 1,000 unit/mL 4,000 Units injection 4,000 Units INTRAVENOUS 3 Times weekly with dialysis heparin 5,000 Units injection 5,000 Units SUBCUTANEOUS q 12 H NaCl 0.9% 1,000 mL iv bolus 1,000 mL INTRAVENOUS PRN DIALYSIS prismaSOL BGK 4 K / 2.5 mEq Ca/Liter 5,000 mL 5,000 mL HEMODIALYSIS continuous (no dispense) prismaSOL BGK 4 K / 2.5 mEq Ca/Liter 5,000 mL 5,000 mL HEMODIALYSIS continuous (no dispense) prismaSOL BGK 4 K / 2.5 mEq Ca/Liter 5,000 mL 5,000 mL HEMODIALYSIS continuous (no dispense) dextrose 40 % 15 g 15 g ORAL PRN Or glucagon 1 mg injection (GLUCAGEN) 1 mg INTRAMUSCULAR PRN Or dextrose 50% in water 25 mL syringe 12.5 g INTRAVENOUS PRN magnesium sulfate 1 g in D5W 100 mL 1 g INTRAVENOUS PRN magnesium sulfate in water 2 g in sterile water 50 ml 2 g INTRAVENOUS PRN fentaNYL 20 mcg/mL iv infusion in NaCl 0.9% 100 mL 0-100 mcg/hr INTRAVENOUS CONTINUOUS pantoprazole 40 mg injection (PROTONIX) 40 mg INTRAVENOUS DAILY (6 AM) NORepinephrine 16 mg in D5W 250 mL (LEVOPHED) 0-30 mcg/min INTRAVENOUS CONTINUOUS Chlorhexidine Gluconate 0.12 % 15 mL (PERIDEX) 15 mL ORAL q 12 H Lines, Drains, and Airways Line Arterial Line 01/19/18 0840 Arterial Line Right Radial 6 days Central Line Quadruple Lumen 01/19/18 1056 Right Neck 5 days Dialysis / Apheresis Double Lumen 01/24/18 1400 Non-tunneled Right Groin less than 1 day Drain GI Feed/Drain 01/12/18 0100 13 days Drain/Tube 01/19/18 1015 Midline Abdomen 5 days Airway Airway Endotracheal Tube 01/12/18 1138 12 days PHYSICAL EXAM PERFORMED: HEENT: Lips with hemorrhagic ulcers. Clear drainage around ETT. Oral Mucosa: Dry mucous membranes Feeding Tube: Yes. Orogastric tube Eyes: PERRLA at 4mm. Neck: Unremarkable; No adenopathy or JVD Cardiovascular: Regular rhythm Respiratory: Coarse inspiratory and expiratory rhonchi bilaterally. %FIO2 Min: 40 Max: 50 Abdomen: Soft, Distended and Hypoactive BSs. WoundVac in place. Extremities: Edema- Yes with 1+ UE/LE pitting edema Peripheral Pulses- Present all extremities Capillary Refill- less than 3 seconds Skin: Abnormalities- No Neurologic: Sedated Respiratory/Nursing Documentation: O2 Therapy: Ventilator (01/25/18747) Invasive Ventilator Mode: Pressure Regulated Volume Control (01/25/18747) Set Ventilator Respiratory Rate (BPM): 18 (01/25/18747) Total Respiratory Rate (BPM): 35 (01/25/18747) Tidal Volume Set (mL): 480 (01/25/18747) Exhaled Tidal Volume (mL): 451 (01/25/18747) Minute Volume (L): 16.8 (01/25/18747) Peak Inspiratory Pressure (cm H2O): 18 (01/25/18747) PEEP/CPAP (cm H2O): 5 (01/25/18747) HEMODYNAMIC DATA: NUTRITION: Enteral Feeds: Yes Tube Feeds Impact 1.5 at 40ml/hr DATA: Diagnostic tests reviewed for today's visit: Most recent labs and imaging results. LABS: Recent Labs 01/25/18 04201/24/18 04201/23/18 1020 WBC 15.78* < > 13.44* < > -- RBC 3.68* < > 2.48* < > -- HB 10.4* < > 7.1* < > -- HCT 31.7* < > 21.8* < > -- MCV 86.1 < > 87.9 < > -- PLT 145 < > 141 < > -- GLUC 147* -- 189* -- -- BUN 58* -- 57* -- -- CREAT 1.68* -- 1.80* -- -- NA 139 -- 141 -- -- K 4.2 -- 4.5 -- -- CHLOR 107 -- 106 -- -- CO2 20* -- 23 -- -- TPROT -- -- 5.0* -- -- ALB -- -- 1.3* -- -- CA 7.4* -- 7.2* -- -- ALKPHOS -- -- 297* -- -- TBILI -- -- 6.3* -- -- AST -- -- 132* -- -- ALT -- -- 103* -- -- PTSEC -- -- 10.6 -- 10.0 APTT -- -- -- -- 23.9 INR -- -- 1.00 -- 0.93 MG 2.6 -- 2.7* -- -- < > = values in this interval not displayed. ABG: Recent Labs 01/25/18 04201/24/18 22301/24/18 1820 PH 7.466* 7.443 7.420 PO2 78.4* 77.4* 97.6* PCO2 31.4* 30.2* 33.6* CULTURES: Sputum: 01/24 pending. CXR FINDINGS: INDICATION: ?Respiratory failure. ? ? COMPARISON: 01/24/2018 ? FINDINGS: The endotracheal tube and esophagogastric tube appear stable. ?The left central venous catheter has been removed. ?Right central venous catheter is stable. ?Stable pulmonary infiltrates are noted bilaterally. ?Heart is not enlarged. ? IMPRESSION: ? Recent removal of left central venous catheter. ?There is no evidence for pneumothorax. ?Stable appearance otherwise. OTHER IMAGIN/21 Left USND: Small/minimal effusion. Assessment/Plan PROBLEMS: ACTIVE PROBLEM LIST Gallstone Pancreatitis Ruptured Abdominal Aortic Aneurysm (Aaa) (Hcc) Dic (Disseminated Intravascular Coagulation) (Hcc) Hemorrhagic Shock (Hcc) Acute Respiratory Failure (Hcc) Cardiac Arrest (Hcc) Hypernatremia Hypokalemia Hypomagnesemia Hypophosphatemia Hyperchloremia Encephalopathy Aaa (Abdominal Aortic Aneurysm, Ruptured) (Hcc) Obesity, Class I, Bmi 30-34.9 1. Hypoxic VDRF following ruptured AAA 01/12 with multiple surgeries since for relooks and clean-outs 2. Left-sided infiltrates on CXR--no fever or rising WBC 3. Metabolic encephalopathy related to hypoxia/shock at admission with cardiac arrest and early days of hospitalization with MOSF. 4. TERENCE on CKD on CVVH 5. Ileus--tolerating tube feeds 6. Shock ---off pressors 7. Mild anemia-stable 8. Hypertriglyceridemia--560 on 01/24. Propofol stopped. PLANS FOR TODAY: CRITICAL CARE PLAN: Bronchodilators , Dialysis, Tube feedings, Ventilatory support and will consult ENT for trach tube placement. PEG later if needed once abdomen heals further. Hope to D/C TPN today. Increase DuoNebs to 4h Add Budesonide Await Sputum culture Would like to back off on Hydrocortisone rapidly Likely to need LTAC placement Max doses on Fentanyl at 200mcg/hr and Versed at 10mg/hr. Stop Propofol due to Trigs level of 560 on 01/24. Have been able to stop Precedex and use the above two. This patient has a high probability of sudden, clinically significant deterioration, which requires the highest level of physician preparedness to intervene urgently. I managed/supervised life or organ supporting interventions that required frequent physician assessment. I devoted my full attention to the direct care of this patient for the amount of time indicated below. Time I spent with family or surrogate(s) is included only if the patient was incapable of providing the necessary information or participating in medical decision making. Time devoted to teaching is not included. Patient Updated Yes Family Updated Yes Discussed with Staff Yes Daily discussions with family and they are agreeable to the above plan. They continue to want full support given including Trach +/- PEG as indicated. Informed them of very likely prolonged course with a still uncertain outcome. They understand and all questions answered. They are appreciative of our care. Time spent providing critical care services: 40 minutes excluding procedures. SIGNATURE: Dorcas Palafox MD PATIENT NAME: Naveen Akins DATE: January 25, 2018 TIME: 8:52 AM PAGER/CONTACT #: [phone] CHEST 1 VIEW Observed: 01/25/2018 Status: F Source: [employer] 5:46 AM HEALTH SYSTEM REPOSITORY Performed at [facility] APPROVED BY: Yajaira Veronica MD EXAM TITLE: CHEST 1 VIEW DATE: 01/25/2018 05:43 INDICATION: Respiratory failure. COMPARISON: 01/24/2018 FINDINGS: The endotracheal tube and esophagogastric tube appear stable. The left central venous catheter has been removed. Right central venous catheter is stable. Stable pulmonary infiltrates are no genaro bilaterally. Heart is not enlarged. IMPRESSION: Recent removal of left central venous catheter. There is no evidence for pneumothorax. Stable appearance otherwise. BLD GAS ART AND Collected: 01/25/2018 Status: F Source: [employer] [facility] [place] 4:25 AM HEALTH SYSTEM REPOSITORY TYPE CODE TESTS RESULT OUT OF RANGE REFERENCE UNITS LAB FIO2(LOINC) % FIO2 40 Result Comment: FIO2 Corrected result per Camilla Bond CORRECTED: Previous result = 50, verified at 04:45 on 01/25/18. LAB TEMPA(LOINC) Temperature 36.2 LAB PH(LOINC) 7.350-7. 450 pH Arterial High 7.466 LAB PCO2(LOINC) 36.0-46. mm Hg Low 0 PCO2 Arterial 31.4 LAB PO2(LOINC) 85.0-96. mm Hg Low 0 PO2 Arterial 78.4 LAB HCO3A(LOINC) 22.0-26. mEq/L 0 HCO3- 22.3 LAB O2%A(LOINC) 95.0-98. % 0 O2% Sat Arterial 96.8 LAB BASEX(LOINC) -2.5 to mEq/L 2.5 Base Excess -1.0 LAB CHANG(LOINC) 4.43-4.9 mg/dL Low 3 Ionized Calcium 4.40 LAB CAPHG(LOINC) 4.36-4.7 mg/dL 3 Ionized Ca,PH7.4 4.52 Performed By: #### ABGIG #### [facility] [address] [place] [address] HEMOGRAM/DIFF Collected: 01/25/2018 Status: F Source: [facility] 4:25 AM HEALTH SYSTEM REPOSITORY TYPE CODE TESTS RESULT OUT OF REFERENCE UNITS RANGE LAB WBC(LOINC) 4.23-9.07 thou/cmm WBC High 15.78 LAB RBC(LOINC) 4.63-6.08 mil/cmm Low RBC 3.68 LAB HGB(LOINC) 13.7-17.5 g/dL Low Hgb 10.4 LAB HCT(LOINC) 40.1-51.0 % Low Hct 31.7 LAB MCV(LOINC) 83.2-95.6 fl MCV 86.1 LAB MCH(LOINC) 25.7-32.2 pg MCH 28.3 LAB MCHC(LOINC 32.3-36.5 % ) MCHC 32.8 LAB RDW(LOINC) 11.6-14.4 % RDW High 20.5 LAB RDWSD(LOIN 36.1-45.8 fl C) RDW SD High 58.4 LAB PLT(LOINC) 141-365 thou/cmm Platelet 145 LAB MPV(LOINC) 8.7-12.0 fl MPV High 12.6 LAB SEG(LOINC) % Seg Neutrophil 90.9 LAB IGRE(LOINC % ) Immature Grans 2.60 LAB LYMPH(LOIN % C) Lymphocyte 4.2 LAB MNO(LOINC) % Monocyte 2.2 LAB EOSIN(LOIN % C) Eosinophil 0.0 LAB BASO(LOINC % ) Basophil 0.1 LAB SEGN(LOINC 1.78-5.38 thou/cmm ) Abs. High Neut (ANC) 14.34 LAB IGAB(LOINC 0.00-0.05 thou/cmm ) Abs High Immature Grans 0.41 LAB LYMN(LOINC 0.84-2.85 thou/cmm ) Low Abs. Lymph 0.66 LAB MONON(LOIN 0.30-0.82 thou/cmm C) Abs. Rincon 0.35 LAB EOSN(LOINC 0.04-0.54 thou/cmm ) Low Abs. Eosin 0.00 LAB BASON(LOIN 0.01-0.08 thou/cmm C) Abs. Baso 0.02 Result Comment: Smear scanned; tech agrees with automated differential Performed By: #### [id number] #### [place] [address] MAGNESIUM BLOOD Collected: 01/25/2018 Status: F Source: [facility] 4:25 AM HEALTH SYSTEM REPOSITORY TYPE CODE TESTS RESULT OUT OF REFERENCE UNITS RANGE LAB MAG(LOINC) 1.6-2.6 mg/dL Magnesium Blood 2.6 Performed By: #### MAG #### [place] [address] PHOSPHORUS BLOOD Collected: 01/25/2018 Status: F Source: [facility] 4:25 AM HEALTH SYSTEM REPOSITORY TYPE CODE TESTS RESULT OUT OF REFERENCE UNITS RANGE LAB PHOS(LOINC 2.5-4.9 mg/dL ) Phosphorus Blood 2.9 Performed By: #### PHOS #### [place] [address] BASIC PANEL Collected: 01/25/2018 Status: F Source: [facility] 4:25 AM HEALTH SYSTEM REPOSITORY TYPE CODE TESTS RESULT OUT OF REFERENCE UNITS RANGE LAB NA(LOINC) 136-145 mEq/L Sodium Blood 139 LAB K(LOINC) 3.5-5.1 mEq/L Potassium Blood 4.2 LAB CL(LOINC) 98-107 mEq/L Chloride Blood 107 LAB CO2(LOINC) 21-32 mEq/L Low CO2 Blood 20 LAB GLU(LOINC) 70-99 mg/dL Glucose High Blood 147 LAB BUN(LOINC) 7-18 mg/dL BUN High Blood 58 LAB CREA(LOINC 0.67-1.17 mg/dL ) High Creatinine Blood 1.68 LAB CA(LOINC) 8.5-10.1 mg/dL Low Calcium Blood 7.4 LAB ANGAP(LOIN 8-16 C) Anion Gap 16 Performed By: #### P8 #### [place] [address] Observed: 01/24/2018 Status: F Source: [facility] CULT AND SMR 11:50 PM HEALTH SYSTEM RESPIRATORY REPOSITORY Test performed at [facility] Absence of normal oropharyngeal john Few Gram negative bacilli Many Polymorphonuclear leukocytes Few Mononuclear cells ORGANISM: Enterobacter cloacae (ID: 1) Many Performed By: #### C_RES #### [facility] [address] [place] [address] ALLIED HEALTH Observed: 01/24/2018 Status: COMPLETED Source: [place] 10:30 PM CLINIC OTHER CAMPUS REPOSITORY HNO ID: [id number] Author: Chaplain Robbins (Chaplain) Service: Spiritual Care Author Type: Envelope Stamping Machine Operator Type: Allied Health Filed: 01/24/2018 11:20 PM Note Text: SPIRITUALCARE Spiritual Care Visit- Brief Note Name: Naveen Akins Date: January 24, 2018 Notes: Talked with the nurse about patients condition. Went to waiting room and sat with the and talked about the strength she receives from God. She has never left the hospital since he was brought here. Family is thankful for prayer and visits. Envelope Stamping Machine Operator Signature: Chaplain Rosendo To contact the Spiritual Care Department: Please call [phone] or Page the On-Call Envelope Stamping Machine Operator at pager [phone] Thank you for the opportunity to be of service. This is an electronically created document. IF PRINTED, PLEASE DO NOT REMOVE FROM THE CHART OR MODIFY PRINTED COPY. BLOOD GAS ARTERIAL Collected: 01/24/2018 Status: F Source: [facility] 10:30 PM HEALTH SYSTEM REPOSITORY TYPE CODE TESTS RESULT OUT OF REFERENCE UNITS RANGE LAB FIO2(LOINC % ) FIO2 40 LAB TEMPA(LOIN C) Temperature 36.4 LAB PH(LOINC) 7.350-7.450 pH Arterial 7.443 LAB PCO2(LOINC 36.0-46.0 mm Hg ) Low PCO2 Arterial 30.2 LAB PO2(LOINC) 85.0-96.0 mm Hg Low PO2 Arterial 77.4 LAB HCO3A(LOIN 22.0-26.0 mEq/L C) Low HCO3- 20.3 LAB O2%A(LOINC 95.0-98.0 % ) O2% Sat Arterial 96.9 LAB BASEX(LOIN -2.5 to 2.5 mEq/L C) Base Excess -3.2 Performed By: #### ABG #### [facility] [address] [address] BLOOD GAS ARTERIAL Collected: 01/24/2018 Status: F Source: [facility] 6:20 HEALTH SYSTEM REPOSITORY TYPE CODE TESTS RESULT OUT OF REFERENCE UNITS RANGE LAB FIO2(LOINC % ) FIO2 40 LAB TEMPA(LOIN C) Temperature 37.0 LAB PH(LOINC) 7.350-7.450 pH Arterial 7.420 LAB PCO2(LOINC 36.0-46.0 mm Hg ) Low PCO2 Arterial 33.6 LAB PO2(LOINC) 85.0-96.0 mm Hg PO2 High Arterial 97.6 LAB HCO3A(LOIN 22.0-26.0 mEq/L C) Low HCO3- 21.3 LAB O2%A(LOINC 95.0-98.0 % ) O2% Sat Arterial 97.5 LAB BASEX(LOIN -2.5 to 2.5 mEq/L C) Base Excess -2.5 Performed By: #### ABG #### [facility] [address] [place] [address] HEMOGRAM Collected: 01/24/2018 Status: F Source: [facility] [address] REPOSITORY TYPE CODE TESTS RESULT OUT OF REFERENCE UNITS RANGE LAB WBC(LOINC) 4.23-9.07 thou/cmm WBC High 16.37 LAB RBC(LOINC) 4.63-6.08 mil/cmm Low RBC 3.66 LAB HGB(LOINC) 13.7-17.5 g/dL Low Hgb 10.4 LAB HCT(LOINC) 40.1-51.0 % Low Hct 31.9 LAB MCV(LOINC) 83.2-95.6 fl MCV 87.2 LAB MCH(LOINC) 25.7-32.2 pg MCH 28.4 LAB MCHC(LOINC 32.3-36.5 % ) MCHC 32.6 LAB RDW(LOINC) 11.6-14.4 % RDW High 20.1 LAB RDWSD(LOIN 36.1-45.8 fl C) RDW High SD 58.8 LAB PLT(LOINC) 141-365 thou/cmm Platelet 157 LAB MPV(LOINC) 8.7-12.0 fl MPV High 12.7 LAB NRBCR(LOIN 0.0-0.2 % C) Nucleated RBC % 0.1 LAB NRBCA(LOIN 0.00-0.01 thou/cmm C) High Nucleated RBC 0.02 Absolute Performed By: #### CBC1 #### [facility] [address] [place] [address] [address] HEAD W/O CONTRAST Observed: 01/24/2018 Status: F Source: [facility] 5:19 PM HEALTH SYSTEM REPOSITORY Performed at [facility] APPROVED BY: Moy Zelaya MD EXAMINATION: CT HEAD W/O CONTRAST CLINICAL HISTORY: Encephalopathy. TECHNIQUE: Serial axial images without IV contrast were obtained from the vertex to the foramen magnum. MQ: CTBWO_3 CT Dose-Length Product (DLP): 828.43 mGy*cm CT Dose Reduction Employed: No dose reduction techniques required COMPARISON: No intracranial imaging available for comparison. RESULT: Images are degraded due to patient motion. Post-operative change: None. Acute change: No evidence of an acute infarct or other acute parenchymal process. Hemorrhage: No evidence of acute intracranial hemorrhage. Mass Lesion / Mass Effect: There is no evidence of an intracranial mass or extraaxial fluid collection. No significant mass effect. Chronic change: None apparent. Parenchyma: There is no significant volume loss. The brain parenchyma is otherwise within normal limits for age. Ventricles: The ventricles are within normal limits of size and configuration for age. Paranasal sinuses and skull base: Small bilateral mastoid effusions, which may be related to patient intubation. The calvarium appears intact. IMPRESSION: Motion degraded exam demonstrating no definite acute intracranial abnormality. US CHEST EFFUSION Observed: 01/24/2018 Status: F Source: [facility] SURVEY LEFT 3:50 PM HEALTH SYSTEM REPOSITORY Performed at [facility] APPROVED BY: Megan Duarte MD Exam: Limited chest ultrasound dated 01/24/2018 15:30. Indication: Request for a therapeutic thoracentesis. Left pleural effusion. Comparison: CXR dated 01/24/2018. Technique: Real-time grayscale ultrasound of the chest was performed by the echocardiography radiology technologist. Ultrasound was performed prior to the procedure to evaluate presence and distribution of left pleural fluid. Findings: Sonographic evaluation of the left chest reveals minimal pleural fluid. There is insufficient pleural fluid to necessitate a therapeutic thoracentesis. IMPRESSION: Insufficient left pleural effusion to necessitate a therapeutic thoracentesis. PROCEDURE Observed: 01/24/2018 Status: COMPLETED Source: [place] 3:00 PM [facility] OTHER CAMPUS REPOSITORY HNO ID: [id number] Author: Shen Lorenzo Service: Nephrology Author Type: Physician Type: Procedures Filed: 01/24/2018 3:02 PM Note Text: BEDSIDE PROCEDURE NOTE DIALYSIS CATHETER Date/Start Time: 01/24/2018 3:00 PM Performed by: SHEN LORENZO Authorized by: SHEN LORENZO Consent/Burt Protocol Written Consent Obtained: Yes Sign In Communication: Completed Time Out completed: Team confirms correct patient, procedure, side/site, position (if applicable) and completion AND review of fire risk assessment/protocols (if appropriate) Affirmation of Time Out: Yes Sign Out Discussion: Yes Pre-procedure Details: Personnel directly involved with the procedure wore the appropriate PPE. PPE Used: Sterile gloves, sterile gown, mask, goggles and cap The area was prepped with chlorhexidine (Chloroprep) and allowed to dry. A sterile full body drape was applied following the usual aseptic technique. Usual aseptic technique was not followed due to clinical factors necessitating an emergent procedure [facility] Central Line Insertion Checklist Utilized: yes Medications: Local anesthesia Local Anesthesia (see MAR): Lidocaine 1% Procedure Details: Indication: Hemodialysis and replace a malfunctioning catheter Patient Position: Flat Site: Right femoral vein Site Selection Rationale: Left IJ dialysis catheter malfunction; R IJ vein is occupied by CVC. New Stick: The vessel was cannulated under direct ultrasound visualization with a single lumen catheter. Line Transduced: No A small skin incision was made and the tract was sequentially dilated with semi-rigid tissue dilators. A 20 cm triple lumen, 12 Fr, non-tunneled catheter was advanced over the guidewire and left in situ while the guidewire was removed. Assessment: Blood return through all ports and all ports flushed without difficulty A sterile, transparent, occlusive dressing was placed over the site. All catheters, needles, and wires were accounted for and intact Number of attempts: 1 Successful Placement: Yes Post-procedure Details: Patient tolerated the procedure well with no immediate complications Estimated Blood Loss: Scant Specimens Sent: None SIGNATURE: Rosanna Talbert MD PATIENT NAME: Naveen Akins DATE: January 24, 2018 TIME: 3:00 PM PAGER/CONTACT #: CONSULT PROG Observed: 01/24/2018 Status: COMPLETED Source: [place] 2:16 PM [facility] REPOSITORY HNO ID: [id number] Author: Margaret Garcia) MAGALY Townsend Service: Wound/Ostomy Author Type: Registered Nurse Type: Consult Progress Note Filed: 01/24/2018 2:22 PM Note Text: Wound Care Consult Team Assessment Note: PATIENT NAME: Naveen Akins Reason for Assessment: Abdominal wound, wound vac Assessment: Patient seen today by Kaylene Magana INDEPENDENT SALES REPRESENTATIVE and RN, see Wound Expert for detailed documentation. Midlline abdominal wound with large blood clot distal end, wound bed dry and dusky, wound measures 35x4.5x2.0 cm. Visit time: 37 minutes Wound Evaluation: Newly Identified Goals: Maintain moist wound healing Recommendations: Wound vac dressing changes 3 times per week to midline abdominal wound using white and black foam, suction 150mmHg cont., turn every 2 hours, bilateral prevalon boots, allevyn foam to coccyx change every 3 days or when soiled. Will see patient Saturday January 27, 2018 to change dressing again. Electronically Signed By: IGNACIA Agrawal,RN,CWON CONSULT Observed: 01/24/2018 Status: COMPLETED Source: [place] 2:13 PM [facility] REPOSITORY HNO ID: [id number] Author: Brad Castillo Service: Neurology Author Type: Physician Type: Consults Filed: 01/24/2018 2:28 PM Note Text: NEUROINTENSIVE CARE STAFF ? The patient was seen and examined independently. ?Labs, vitals and imaging were reviewed personally. Where applicable, the case was discussed with the patient and/or family at length, and all questions were addressed. ? Pertinent physical findings, focused assessment and plan: ? The patient is unresponsive to voice or light tactile stimulation. He is intubated and overbreathing the ventilator at 41 resps/min. Pupils are reactive 3->1 OU direct and consensual. Oculocephalics are absent. Corneals, gag and cough are present. Grimace is symmetric. The pt has weak extension to noxious nailbed pressure R>L. Tone is flaccid throughout. Five days of continuous EEG showed no ictal or epileptiform discharges, only generalized slowing maximum bifrontal. Given the pt's clinical course I suspect hypoxic-ischemic encephalopathy. No neuroimaging is available. I will get a CTH I- to start and if equivocal an MRI would be useful in discussing prognosis. Further recommendations to follow depending on results. ? 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 Frequent physician assessment and appropriate services were provided in order to prevent further decline of the patient's life-threatening condition(s).?I devoted my full attention at bedside to directly providing, managing and evaluating care of this patient for the amount of time indicated below. Time may include specific [facility]-approved services including review of chest radiography, interpretation of cardiac function measurements, ECGs, pulse oximetry, ventilator management, and vascular access procedures as necessary, but does not include time spent teaching or procedures billed separately. ?? Critical care time: 35?minutes. ?? SIGNATURE: Brad Castillo MD PATIENT NAME: Naveen Akins DATE: January 24, 2018 TIME: 2:13 PM PAGER/CONTACT #:[phone] PROGRESS Observed: 01/24/2018 Status: COMPLETED Source: [place] 2:11 PM CLINIC OTHER CAMPUS REPOSITORY HNO ID: [id number] Author: Shen Lorenzo Service: Nephrology Author Type: Physician Type: Progress Notes Filed: 01/24/2018 2:59 PM Note Text: Nephrology Progress Note Following for TERENCE. Pt is intubated/sedated. Remains off pressor. Current Inpatient Medications: Current Facility-Administered Medications Ordered in Epic: Parenteral Nutrition - Adult INTRAVENOUS ONCE TPN (1800 START) H Edwin Awender ipratropium-albuterol 3 mL nebulizer solution (DUONEB) 3 mL INHALATION QID Paulo (Meter Repair Shop Supervisor) Hudock 3 mL at 01/24/18 1125 dexmedetomidine 400 mcg in NaCl 0.9% 100 mL (PRECEDEX) 0.2- 0.7 mcg/kg/hr (Adjusted) INTRAVENOUS CONTINUOUS Dorcas Mckeon Decoy midazolam 100 mg in D5W 100 mL (VERSED) 1-10 mg/hr INTRAVENOUS CONTINUOUS Dorcas Mckeon Decoy docusate sodium oral liquid 100 mg/10 mL (DIOCTO,COLACE) 100 mg OROGASTRIC BID Dorcas Mike Decoy hydrocortisone sodium succinate (PF) 50 mg injection (Solu- CORTEF) 50 mg INTRAVENOUS q 12 H Dorcas Mckeon Decoy Parenteral Nutrition - Adult INTRAVENOUS ONCE TPN (1800 START) H Edwin Dudley Last Rate: 75 mL/hr at 01/24/18 0400 senna leaf extract 176 mg/5 mL 528 mg 15 mL OROGASTRIC BID Dionicio (Res) Stevens 528 mg at 01/24/18 0842 carboxymethylcellulose sodium 1-2 Drop (CELLUVISC) 1-2 Drop BOTH EYES PRN Venkat Paniagua 2 Drop at 01/24/18 1018 polyvinyl alcohol-povidone 1.4-0.6 % 1 Drop (REFRESH) 1 Drop BOTH EYES QID PRN Paulo (Meter Repair Shop Supervisor) Hudock 1 Drop at 01/24/18 0838 heparin 1,000 unit/mL 4,000 Units injection 4,000 Units INTRAVENOUS 3 Times weekly with dialysis Troy Godoy 4,000 Units at 01/22/18 2049 heparin 5,000 Units injection 5,000 Units SUBCUTANEOUS q 12 H Mervin (Res) Wally 5,000 Units at 01/24/18 0922 NaCl 0.9% 1,000 mL iv bolus 1,000 mL INTRAVENOUS PRN DIALYSIS Shen Lorenzo prismaSOL BGK 4 K / 2.5 mEq Ca/Liter 5,000 mL 5,000 mL HEMODIALYSIS continuous (no dispense) Shen Lorenzo Last Rate: 700 mL/hr at 01/16/18 1300 5,000 mL at 01/24/18 1113 prismaSOL BGK 4 K / 2.5 mEq Ca/Liter 5,000 mL 5,000 mL HEMODIALYSIS continuous (no dispense) Shen Lorenzo Last Rate: 700 mL/hr at 01/16/18 1300 5,000 mL at 01/24/18 0543 prismaSOL BGK 4 K / 2.5 mEq Ca/Liter 5,000 mL 5,000 mL HEMODIALYSIS continuous (no dispense) Shen Lorenzo Last Rate: 700 mL/hr at 01/16/18 1300 5,000 mL at 01/24/18 1114 dextrose 40 % 15 g 15 g ORAL PRN Jack Regula Or glucagon 1 mg injection (GLUCAGEN) 1 mg INTRAMUSCULAR PRN Jack Regula Or dextrose 50% in water 25 mL syringe 12.5 g INTRAVENOUS PRN Jack Regula magnesium sulfate 1 g in D5W 100 mL 1 g INTRAVENOUS PRN Emilie (Res) Cardella Last Rate: 100 mL/hr at 01/15/18 0016 1 g at 01/15/18 0016 magnesium sulfate in water 2 g in sterile water 50 ml 2 g INTRAVENOUS PRN Emilie (Res) Cardella Last Rate: 25 mL/hr at 01/13/18 1004 2 g at 01/13/18 1004 fentaNYL 20 mcg/mL iv infusion in NaCl 0.9% 100 mL 0-100 mcg/hr INTRAVENOUS CONTINUOUS Smooth C Winston Last Rate: 5 mL/hr at 01/24/18 0730 100 mcg/hr at 01/24/18 0730 pantoprazole 40 mg injection (PROTONIX) 40 mg INTRAVENOUS DAILY (6 AM) Emilie (Res) Cardella 40 mg at 01/24/18 0633 NORepinephrine 16 mg in D5W 250 mL (LEVOPHED) 0-30 mcg/min INTRAVENOUS CONTINUOUS Dionicio (Res) Stevens Stopped at 01/24/18 0900 Chlorhexidine Gluconate 0.12 % 15 mL (PERIDEX) 15 mL ORAL q 12 H Elder Yu) Kalee 15 mL at 01/24/18 0838 No current [facility]-ordered outpatient prescriptions on file. Vitals: BP 132/57 Pulse 80 Temp (!) 35.6 ?C (96.1 ?F) (Axillary) Resp 29 Ht 172.7 cm (5' 8) Wt 83.6 kg (184 lb 4.9 oz) SpO2 100% BMI 28.02 kg/m? BLOOD PRESSURE RANGE: No data recorded. ; No data recorded. 24HR INTAKE/OUTPUT: Intake/Output Summary (Last 24 hours) at 01/24/18 1412 Last data filed at 01/24/18 1200 Gross per 24 hour Intake 1812 ml Output 2351 ml Net -539 ml Physical exam: Constitutional: Sedated Skin: no rash, turgor wnl Heent: intubated Neck: no bruits or jvd noted Cardiovascular: S1, S2 normal without m/r/g Respiratory: Coarse breath sound bilaterally Abdomen: soft, nt, nd Ext: 3+ lower extremity edema/anasarca Data: Labs: Recent Labs 01/24/18 1139 01/24/18 0420 01/23/18 1655 01/23/18 0435 WBC -- 13.44* 15.41* 15.80* HB 7.9* 7.1* 8.2* 8.0* HCT -- 21.8* 25.0* 24.0* MCV -- 87.9 87.1 86.3 PLT -- 141 152 130* Recent Labs 01/24/18 0420 01/23/18 0435 01/22/18 1800 NA 141 139 139 K 4.5 5.0 4.9 CO2 23 22 21 MG 2.7* 2.8* 2.8* BUN 57* 54* 53* CREAT 1.80* 1.75* 1.78* CA 7.2* 7.4* 7.6* Assessment and Plan 1. Acute kidney injury on chronic kidney disease stage 3. Baseline SCr is 1.36 mg/dL on 11/14/17. CKD is likely due to nephrosclerosis related to PAD. TERENCE is 2/2 ischemic ATN from shock. Pt remains anuric. Currently off pressor. Continued problem with catheter blood flow. D/w Dr. Paniagua. I will place femoral dialysis catheter and remove the left IJ catheter (may use for future site of TDC). Resume CRRT with a new catheter. Continue UF rate at 50 mL/hr since BP is stable (currently of NE gtt). ? 2. Shock. Improved. Initially due to hemorrhagic shock-massive blood loss from ruptured AAA +/- adrenal insufficiency. Currently off?pressor. Continue hydrocortisone. ? 5. Ruptured AAA. s/p repair 01/12/18. Management as per vascular surgery. ? 6. Acute hypoxic respiratory failure. Ventilator dependent. Vent management as per ICU. O>I with CRRT UF. 7. Encephalopathy. Neuro evaluation in progress. To get head CT. d/w Dr. Paniagua and Dr. Palafox. Please do not hesitate to contact me at [phone] if there is any question or concern. Rosanna Talbert MD (Shen Lorenzo) RBC PRODUCTS Collected: 01/24/2018 Status: F Source: [facility] 11:40 AM HEALTH SYSTEM REPOSITORY TYPE CODE TESTS RESULT OUT OF REFERENCE UNITS RANGE LAB UNIT1(LOINC ) Xmatch Unit 1 see below Result Comment: Compatible LAB UNIT2(LOINC) Xmatch Unit 2 see below Result Comment: Compatible Performed By: #### RBCPS #### [place] [address] TYPE AND SCREEN Collected: 01/24/2018 Status: F Source: [facility] 11:40 AM HEALTH SYSTEM REPOSITORY TYPE CODE TESTS RESULT OUT OF REFERENCE UNITS RANGE LAB ABO(LOINC) O ABO Group LAB CREATIVE DEVELOPER(LOINC ) RH Type Positive LAB ABSCR(LOIN C) Antibody NEGATIVE Screen LAB BBCMT(LOIN C) Comment See Below Result Comment: Screen &/or Xmatch expires in 3 days at 12 midnight. Redraw patient at that time. Performed By: #### T&S #### [place] [address] HGB Collected: 01/24/2018 Status: F Source: [facility] 11:39 AM HEALTH SYSTEM REPOSITORY TYPE CODE TESTS RESULT OUT OF RANGE REFERENCE UNITS LAB HGBI(LOINC) 13.7-17.5 g/dL Low Hgb 7.9 Performed By: #### HGBI #### [place] [address] ALLIED HEALTH Observed: 01/24/2018 Status: COMPLETED Source: [place] 11:25 AM CLINIC OTHER CAMPUS REPOSITORY O ID: [id number] Author: Chaplain Serna (Chaplain) Service: Spiritual Care Author Type: Type: Allied Health Filed: 01/24/2018 11:45 AM Note Text: SPIRITUALCARE Spiritual Care Visit- Brief Note Name: Naveen Akins Date: January 24, 2018 Notes: attempted to check in w/pt's fam--everyone was asleep except for his dtr, who was on the phone--we made eye contact and acknowledged one another.SC will continue to follow as needed. Envelope Stamping Machine Operator Signature: Chaplain Daphne To contact the Spiritual Care Department: Please call [phone] or Page the On-Call Envelope Stamping Machine Operator at pager [phone] Thank you for the opportunity to be of service. This is an electronically created document. IF PRINTED, PLEASE DO NOT REMOVE FROM THE CHART OR MODIFY PRINTED COPY. NUTRITION Observed: 01/24/2018 Status: COMPLETED Source: [place] 11:04 AM CLINIC OTHER CAMPUS REPOSITORY HNO ID: [id number] Author: Viry Wells) KRISHAN Mosher Service: NST-Nutrition Support Team Author Type: Registered Dietitian Type: Nutrition Filed: 01/24/2018 11:19 AM Note Text: Attestation signed by Perla Dudley at 01/25/2018 9:10 PM Discussed with the RD and agree with RD's findings and plan as documented in the RD's note. Cont TPN; attempting transition to enteral feeds Perla Dudley MD NUTRITION SUPPORT TEAM TOPIC: NUTRITION SUPPORT TEAM PROGRESS NOTE PATIENT NAME: Naveen Akins DATE OF : 1940 DATE: 01/24/2018 Nutritional Status: NO MALNUTRITION IDENTIFIED per RD 01/16/18 ? ? NUTRITION CARE PLAN: ? Problem, Etiology and Signs/Symptoms: Altered GI function related to potential ileus?as evidenced by lack of bowel sounds, distended abdomen, and hypotension. ? NST consult 01/16/18 for TPN support Interval History: LOS d 12, tolerating TPN, TF started last pm, residuals 0-35, no Bm's, BS hypoactive, no pain per NPAT Assessment: 77 year old male with Ruptured AAA s/p Emergent Repair, takeback washout, repair of serosal tears x2, on 01/12, hemorrhagic shock, acute resp failure with pulm edema, TERENCE, SVT s/p Third Look Laparotomy and?washout on 01/14, fourth look, washout, vac change on 01/16 ?remains on vent, continues on CRRT 01/19 X lap, wash out, partial fascial closure, wound vac change 01/20 pressors weaned off Remains on diprivan gtt 01/20 rt thoracentesis- breathing better 01/21 limited abdominal x lap and closure 01/22 levo at pm restarted 01/23 neuro consult, ? plans for trach/Peg 01/24 new femoral HD line per nephrology ? Tmax: 37.5 WBC: 13.44 Edema: 3+ UE, LE Lines: Art Line, Quad lumen, HD cath, all WNL Lytes: reviewed PAB: improved to 18.6 WT: 83.6 kg ( down from 104 kg) GFR: 36.68 Trig : 560 Recommendations: TPN renewed: decreased volume to 1.5 L/24 hrs, decreased NACL, increased insulin, dc'd lipids, ( of note no K in TPN bag) TPN script: 1.5 L /24 hrs providing 1320 calories ( 16 kcals/kg ABW 83 kg) and 80 gms pro ( ~ 1.0 gms/kg ABW 83 kg) per day ? CHO:insulin ratio is 9.8:1 , with 294 gms CHO in TPN , 30 units in TPN bag ? Impact 1.5 at 50-60 cc/hr is goal--> provides 5585-3877 calories and 113-135 pro , currently at 30 cc/hr, advance slowly ? Diprivan @ 15 mcq per hr--> 360ml per day, or 396 calories from lipid, checked Trig levels--> high at 560, dc'd lipid from TPN bag ? Collaborated with Dr Dudley and orders written. Vitals: Temperature Max in 24 hours: Temp (24hrs), Av.8 ?C (98.2 ?F), Min:35.7 ?C (96.3 ?F), Max:37.5 ?C (99.5 ?F) Current Vital Signs: BP 132/57 Pulse 79 Temp (!) 35.7 ?C (96.3 ?F) (Axillary) Resp 26 Ht 172.7 cm (5' 8) Wt 83.6 kg (184 lb 4.9 oz) SpO2 99% BMI 28.02 kg/m? Current Weight: Weight: 83.6 kg (184 lb 4.9 oz) Intake AND Output: Intake/Output Summary (Last 24 hours) at 01/24/18 1104 Last data filed at 01/24/18 1000 Gross per 24 hour Intake 2165 ml Output 2679 ml Net -514 ml Laboratory Data: Recent Labs 01/24/18 0420 01/23/18 0435 01/22/18 1800 NA 141 139 139 K 4.5 5.0 4.9 CHLOR 106 106 105 CO2 23 22 21 CREAT 1.80* 1.75* 1.78* BUN 57* 54* 53* GLUC 189* 234* 216* P 3.5 4.7 4.4 TPROT 5.0* 5.5* -- ALB 1.3* 1.4* 1.5* MG 2.7* 2.8* 2.8* CA 7.2* 7.4* 7.6* Recent Labs 01/23/18 1655 PREALB 18.6* Viry Mosher RD, LD, [facility] Pager: [phone] Increments: 3 PROGRESS Observed: 01/24/2018 Status: COMPLETED Source: [place] 10:45 AM CLINIC OTHER CAMPUS REPOSITORY HNO ID: [id number] Author: Dorcas Palafox Service: Critical Care Author Type: Physician Type: Progress Notes Filed: 01/24/2018 11:11 AM Note Text: MICU - PROGRESS NOTE SERVICE DATE: 01/24/2018 SERVICE TIME: 10:47 AM Admission Date: 01/12/2018 AGE: [age] year old LOS: 12 days Subjective REASON FOR ICU ADMISSION: Confusion and Delirium, Renal Failure, Respiratory Failure, Shock, S/P Surgery and S/P Ruptured AAA Propofol at 15mcg/kg/min. Precedex at 0.7mcg/kg/hr. Levophed currently off. Fentanyl 100mcg/hr. Remains on CVVH. Objective VITAL SIGNS (last 24hrs min/max): Temp Av.8 ?C (98.2 ?F) Min: 35.7 ?C (96.3 ?F) Max: 37.5 ?C (99.5 ?F) Pulse Av.1 Min: 53 Max: 100 Arterial BP 1 Min: 67/32 Max: 178/83 Cuff No Data Recorded Pain Score: 0/10 Vital signs reviewed. BP 132/57 Pulse 79 Temp (Src) 96.3 (Axillary) Resp 26 Ht 5' 8 (1.73m) Wt 184 lb 4.9 oz (83.6kg) SpO2 99% BMI 28.03 kg/(m2). Temp (24hrs), Av.8 ?C (98.2 ?F), Min:35.7 ?C (96.3 ?F), Max:37.5 ?C (99.5 ?F) NET FLUID BALANCE Intake/Output Summary (Last 24 hours) at 01/24/18 1047 Last data filed at 01/24/18 1000 Gross per 24 hour Intake 2335 ml Output 2901 ml Net -566 ml MEDICATIONS Current Facility-Administered Medications: Parenteral Nutrition - Adult INTRAVENOUS ONCE TPN (1800 START) senna leaf extract 176 mg/5 mL 528 mg 15 mL OROGASTRIC BID dexmedetomidine 400 mcg in NaCl 0.9% 100 mL (PRECEDEX) 0.2- 0.7 mcg/kg/hr INTRAVENOUS CONTINUOUS carboxymethylcellulose sodium 1-2 Drop (CELLUVISC) 1-2 Drop BOTH EYES PRN polyvinyl alcohol-povidone 1.4-0.6 % 1 Drop (REFRESH) 1 Drop BOTH EYES QID PRN propofol infusion (DIPRIVAN) 0-15 mcg/kg/min (Adjusted) INTRAVENOUS CONTINUOUS hydrocortisone sodium succinate (PF) 50 mg injection (Solu- CORTEF) 50 mg INTRAVENOUS q 8 H heparin 1,000 unit/mL 4,000 Units injection 4,000 Units INTRAVENOUS 3 Times weekly with dialysis heparin 5,000 Units injection 5,000 Units SUBCUTANEOUS q 12 H NaCl 0.9% 1,000 mL iv bolus 1,000 mL INTRAVENOUS PRN DIALYSIS prismaSOL BGK 4 K / 2.5 mEq Ca/Liter 5,000 mL 5,000 mL HEMODIALYSIS continuous (no dispense) prismaSOL BGK 4 K / 2.5 mEq Ca/Liter 5,000 mL 5,000 mL HEMODIALYSIS continuous (no dispense) prismaSOL BGK 4 K / 2.5 mEq Ca/Liter 5,000 mL 5,000 mL HEMODIALYSIS continuous (no dispense) dextrose 40 % 15 g 15 g ORAL PRN Or glucagon 1 mg injection (GLUCAGEN) 1 mg INTRAMUSCULAR PRN Or dextrose 50% in water 25 mL syringe 12.5 g INTRAVENOUS PRN magnesium sulfate 1 g in D5W 100 mL 1 g INTRAVENOUS PRN magnesium sulfate in water 2 g in sterile water 50 ml 2 g INTRAVENOUS PRN fentaNYL 20 mcg/mL iv infusion in NaCl 0.9% 100 mL 0-100 mcg/hr INTRAVENOUS CONTINUOUS pantoprazole 40 mg injection (PROTONIX) 40 mg INTRAVENOUS DAILY (6 AM) NORepinephrine 16 mg in D5W 250 mL (LEVOPHED) 0-30 mcg/min INTRAVENOUS CONTINUOUS Chlorhexidine Gluconate 0.12 % 15 mL (PERIDEX) 15 mL ORAL q 12 H Lines, Drains, and Airways Line Dialysis / Apheresis Double Lumen 01/13/18 1136 Left Neck 10 days Arterial Line 01/19/18 0840 Arterial Line Right Radial 5 days Central Line Quadruple Lumen 01/19/18 1056 Right Neck 4 days Drain GI Feed/Drain 01/12/18 0100 12 days Drain/Tube 01/19/18 1015 Midline Abdomen 5 days Airway Airway Endotracheal Tube 01/12/18 1138 11 days PHYSICAL EXAM PERFORMED: HEENT: Fair upper and lower dentition. +Orotracheal intubation. Crusted hemorrhagic ulcers on upper lip. Oral Mucosa: Dry mucous membranes and Erythema Feeding Tube: Yes. Orogastric tube Eyes: PERRLA Neck: Unremarkable; No adenopathy or JVD Cardiovascular: Regular rhythm Respiratory: Clear to auscultation but thick secretions reported from ETTube. %FIO2 Min: 40 Max: 40 VENT: PRVC-18 Vt-480 P-5 FiO2 40% SaO2 99% Ve-13-15l/min. Rapid RR at times. Abdomen: Soft, Nontender, Positive bowel sounds and woundVac in place. Reported mucoid stools. Extremities: Edema- Yes and 1+ UE and LE pitting edema. Peripheral Pulses- Present all extremities Capillary Refill- less than 3 seconds Skin: Abnormalities- No Neurologic: Sedated and will briefly open eyes to name Respiratory/Nursing Documentation: O2 Therapy: Ventilator (01/24/18818) Invasive Ventilator Mode: Pressure Regulated Volume Control (01/24/18818) Set Ventilator Respiratory Rate (BPM): 18 (01/24/18818) Total Respiratory Rate (BPM): 23 (01/24/18818) Tidal Volume Set (mL): 480 (01/24/18818) Exhaled Tidal Volume (mL): 669 (01/24/18818) Minute Volume (L): 13.5 (01/24/18818) Peak Inspiratory Pressure (cm H2O): 11 (01/24/18818) PEEP/CPAP (cm H2O): 5 (01/24/18818) HEMODYNAMIC DATA: NUTRITION: Enteral Feeds: No NPO DATA: Diagnostic tests reviewed for today's visit: Most recent labs and imaging results. LABS: Recent Labs 01/24/18 04201/23/18 1020 WBC 13.44* < > -- RBC 2.48* < > -- HB 7.1* < > -- HCT 21.8* < > -- MCV 87.9 < > -- PLT 141 < > -- GLUC 189* -- -- BUN 57* -- -- CREAT 1.80* -- -- NA 141 -- -- K 4.5 -- -- CHLOR 106 -- -- CO2 23 -- -- TPROT 5.0* -- -- ALB 1.3* -- -- CA 7.2* -- -- ALKPHOS 297* -- -- TBILI 6.3* -- -- AST 132* -- -- ALT 103* -- -- PTSEC 10.6 -- 10.0 APTT -- -- 23.9 INR 1.00 -- 0.93 MG 2.7* -- -- < > = values in this interval not displayed. ABG: Recent Labs 01/24/18 0420 01/23/18 2235 01/23/18 1655 PH 7.418 7.452* 7.428 PO2 173.6* 132.8* 134.2* PCO2 35.1* 31.4* 32.6* CULTURES: Other: Pleural fluid cultures No growth to date CXR FINDINGS: 01/24: COMPARISON: 01/23/2018 at 0509. ? Portable frontal view of the chest shows tip of endotracheal tube at the level of T3. ? An enteric tube is seen passing into the stomach. ? Right internal jugular central line with tip in the right atrium. ?Left internal jugular central line with tip in the midsuperior vena cava. ? Heart size is normal. ? Bilateral lung parenchymal infiltrates. ?Stable. ? No pneumothorax. ? IMPRESSION: ? Stable appearance of lines and tubes. ?Stable appearance of lung parenchymal infiltrates. ?Edema is the top consideration. ?Underlying pneumonia cannot be excluded. Assessment/Plan PROBLEMS: ACTIVE PROBLEM LIST Gallstone Pancreatitis Ruptured Abdominal Aortic Aneurysm (Aaa) ([facility]) Dic (Disseminated Intravascular Coagulation) ([facility]) Hemorrhagic Shock ([facility]) Acute Respiratory Failure ([facility]) Cardiac Arrest ([facility]) Hypernatremia Hypokalemia Hypomagnesemia Hypophosphatemia Hyperchloremia Encephalopathy Aaa (Abdominal Aortic Aneurysm, Ruptured) ([facility]) Obesity, Class I, Bmi 30-34.9 1. Multiorgan system failure following ruptured AAA on 01/12 requiring multiple exploratory laps due to severe bleeding. 2. VDRF--not tolerating aggressive weans due to mental status and tachypnea 3. Metabolic encephalopathy 4. Bilateral lower lobe infiltrates likely related to volume/lung edema given daily improvement in CXR findings with further clearing noted today left > right. 5. Severe anemia 6. Leukocytosis--trending down 7. Hemorrhagic shock--hemodynamically more stable and off pressors currently. ?Adrenal insufficiency 8. Hypernatremia--resolved. PLANS FOR TODAY: CRITICAL CARE PLAN: Dialysis, Vasopressors, Transfusions, Tube feedings, Ventilatory support and Weaning Would try trickle tube feeds if tolerated and try to wean off TPN ?EEG--noted Neurology has been consulted CVVH continues ?Go up on Diprivan to try and spare Precedex? Hopefully can keep off pressors. Transfuse one unit PRBCs on CVVH today Will start on tid DuoNebs to help with secretions. May need to look at trach tube soon? This patient has a high probability of sudden, clinically significant deterioration, which requires the highest level of physician preparedness to intervene urgently. I managed/supervised life or organ supporting interventions that required frequent physician assessment. I devoted my full attention to the direct care of this patient for the amount of time indicated below. Time I spent with family or surrogate(s) is included only if the patient was incapable of providing the necessary information or participating in medical decision making. Time devoted to teaching is not included. Patient Updated Yes Family Updated Yes Discussed with Staff Yes Time spent providing critical care services: 40 minutes excluding procedures. SIGNATURE: Dorcas Palafox MD PATIENT NAME: Naveen Akins DATE: January 24, 2018 TIME: 10:47 AM PAGER/CONTACT #: [phone] CASE MANAGEM Observed: 01/24/2018 Status: COMPLETED Source: [place] 10:44 AM [facility] REPOSITORY O ID: [id number] Author: Steve (Rn) MAGALY Rivera Service: Care Management Author Type: Registered Nurse Type: Care Mgt Progress Note Filed: 01/24/2018 10:48 AM Note Text: CARE MANAGEMENT PROGRESS NOTE SERVICE DATE: 01/24/2018 SERVICE TIME: 1045 LOS: 12 days Needs Prior to Discharge: To Be Determined Pt remains intubated and sedated. Had abdomen closed on 01/22/18, still has wound vac. Plan is for nephrology to place femoral dialysis line today. Will continue to follow for transitional needs. SIGNATURE: Steve Rivera RN PATIENT NAME: Naveen Akins DATE: January 24, 2018 TIME: 10:44 AM PAGER/CONTACT #: [phone] BLOOD GAS ARTERIAL Collected: 01/24/2018 Status: F Source: [facility] 10:30 AM HEALTH SYSTEM REPOSITORY TYPE CODE TESTS RESULT OUT OF REFERENCE UNITS RANGE LAB FIO2(LOINC % ) FIO2 Value Not Given LAB TEMPA(LOIN C) Temperature 37.0 LAB PH(LOINC) 7.350-7.450 pH Arterial 7.416 LAB PCO2(LOINC 36.0-46.0 mm Hg ) Low PCO2 Arterial 34.6 LAB PO2(LOINC) 85.0-96.0 mm Hg PO2 High Arterial 107.7 LAB HCO3A(LOIN 22.0-26.0 mEq/L C) Low HCO3- 21.7 LAB O2%A(LOINC 95.0-98.0 % ) O2% Sat Arterial 98.0 LAB BASEX(LOIN -2.5 to 2.5 mEq/L C) Base Excess -2.4 Performed By: #### ABG #### [facility] [address] [address] ALLIED HEALTH Observed: 01/24/2018 Status: COMPLETED Source: [place] 10:20 AM [facility] REPOSITORY HNO ID: [id number] Author: Chaplain Serna (Chaplain) Service: Spiritual Care Author Type: Envelope Stamping Machine Operator Type: Allied Health Filed: 01/24/2018 10:46 AM Note Text: SPIRITUALCARE Spiritual Care Visit- Brief Note Name: Naveen Akins Date: January 24, 2018 Notes: Stopped by pt's rm; pt's omid clements w/staff. Silent prayer outside door. Will follow up w/fam/pt later on. Envelope Stamping Machine Operator Signature: Chaplain Daphne To contact the Spiritual Care Department: Please call [phone] or Page the On-Call Envelope Stamping Machine Operator at pager [phone] Thank you for the opportunity to be of service. This is an electronically created document. IF PRINTED, PLEASE DO NOT REMOVE FROM THE CHART OR MODIFY PRINTED COPY. PROGRESS Observed: 01/24/2018 Status: COMPLETED Source: [place] 10:01 AM [facility] REPOSITORY HNO ID: [id number] Author: Paulo Lovelace (Cns) Service: Critical Care Author Type: Nurse Specialist Type: Progress Notes Filed: 01/24/2018 10:17 AM Note Text: MICU - PROGRESS NOTE SERVICE DATE: 01/24/2018 SERVICE TIME: 10:02 AM Admission Date: 01/12/2018 AGE: [id number] year old LOS: 12 days Subjective REASON FOR ICU ADMISSION: Respiratory Failure Objective PROBLEMS: ACTIVE PROBLEM LIST Gallstone Pancreatitis Ruptured Abdominal Aortic Aneurysm (Aaa) ([facility]) Dic (Disseminated Intravascular Coagulation) ([facility]) Hemorrhagic Shock ([facility]) Acute Respiratory Failure ([facility]) Cardiac Arrest ([facility]) Hypernatremia Hypokalemia Hypomagnesemia Hypophosphatemia Hyperchloremia Encephalopathy Aaa (Abdominal Aortic Aneurysm, Ruptured) ([facility]) Obesity, Class I, Bmi 30-34.9 PAST MEDICAL HISTORY Diagnosis Date - DIC (disseminated intravascular coagulation) ([facility]) 01/12/2018 PAST SURGICAL HISTORY Procedure Laterality Date - LAP CHOLECYSTECT/CHOLANGIOGRAPHY 05-28-09 - REPAIR UMBILICAL NATAN,5+Y/O,REDUC 05-28-09 Social History Marital status: Spouse name: Shelly Years of education: 11 Number of children: 4 Occupational History 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 BP 132/57 Pulse 79 Temp (Src) 96.3 (Axillary) Resp 26 Ht 5' 8 (1.73m) Wt 184 lb 4.9 oz (83.6kg) SpO2 99% BMI 28.03 kg/(m2). Temp (24hrs), Av.8 ?C (98.2 ?F), Min:35.7 ?C (96.3 ?F), Max:37.5 ?C (99.5 ?F) NET FLUID BALANCE Intake/Output Summary (Last 24 hours) at 01/24/18 1002 Last data filed at 01/24/18 0900 Gross per 24 hour Intake 2335 ml Output 2761 ml Net -426 ml MEDICATIONS Current Facility-Administered Medications: Parenteral Nutrition - Adult INTRAVENOUS ONCE TPN (1800 START) senna leaf extract 176 mg/5 mL 528 mg 15 mL OROGASTRIC BID dexmedetomidine 400 mcg in NaCl 0.9% 100 mL (PRECEDEX) 0.2- 0.7 mcg/kg/hr INTRAVENOUS CONTINUOUS carboxymethylcellulose sodium 1-2 Drop (CELLUVISC) 1-2 Drop BOTH EYES PRN polyvinyl alcohol-povidone 1.4-0.6 % 1 Drop (REFRESH) 1 Drop BOTH EYES QID PRN propofol infusion (DIPRIVAN) 0-15 mcg/kg/min (Adjusted) INTRAVENOUS CONTINUOUS hydrocortisone sodium succinate (PF) 50 mg injection (Solu- CORTEF) 50 mg INTRAVENOUS q 8 H heparin 1,000 unit/mL 4,000 Units injection 4,000 Units INTRAVENOUS 3 Times weekly with dialysis heparin 5,000 Units injection 5,000 Units SUBCUTANEOUS q 12 H NaCl 0.9% 1,000 mL iv bolus 1,000 mL INTRAVENOUS PRN DIALYSIS prismaSOL BGK 4 K / 2.5 mEq Ca/Liter 5,000 mL 5,000 mL HEMODIALYSIS continuous (no dispense) prismaSOL BGK 4 K / 2.5 mEq Ca/Liter 5,000 mL 5,000 mL HEMODIALYSIS continuous (no dispense) prismaSOL BGK 4 K / 2.5 mEq Ca/Liter 5,000 mL 5,000 mL HEMODIALYSIS continuous (no dispense) dextrose 40 % 15 g 15 g ORAL PRN Or glucagon 1 mg injection (GLUCAGEN) 1 mg INTRAMUSCULAR PRN Or dextrose 50% in water 25 mL syringe 12.5 g INTRAVENOUS PRN magnesium sulfate 1 g in D5W 100 mL 1 g INTRAVENOUS PRN magnesium sulfate in water 2 g in sterile water 50 ml 2 g INTRAVENOUS PRN fentaNYL 20 mcg/mL iv infusion in NaCl 0.9% 100 mL 0-100 mcg/hr INTRAVENOUS CONTINUOUS pantoprazole 40 mg injection (PROTONIX) 40 mg INTRAVENOUS DAILY (6 AM) NORepinephrine 16 mg in D5W 250 mL (LEVOPHED) 0-30 mcg/min INTRAVENOUS CONTINUOUS Chlorhexidine Gluconate 0.12 % 15 mL (PERIDEX) 15 mL ORAL q 12 H Lines, Drains, and Airways Line Dialysis / Apheresis Double Lumen 01/13/18 1136 Left Neck 10 days Arterial Line 01/19/18 0840 Arterial Line Right Radial 5 days Central Line Quadruple Lumen 01/19/18 1056 Right Neck 4 days Drain GI Feed/Drain 01/12/18 0100 12 days Drain/Tube 01/19/18 1015 Midline Abdomen 4 days Airway Airway Endotracheal Tube 01/12/18 1138 11 days PHYSICAL EXAM PERFORMED: Cardiovascular: Regular rhythm Respiratory: Reduced breath sounds bilat %FIO2 Min: 40 Max: 40 Abdomen: Positive bowel sounds Extremities: Edema- Yes Generalized edema Neurologic: Sedated and Unresponsive Respiratory/Nursing Documentation: O2 Therapy: Ventilator (01/24/18818) Invasive Ventilator Mode: Pressure Regulated Volume Control (01/24/18818) Set Ventilator Respiratory Rate (BPM): 18 (01/24/18818) Total Respiratory Rate (BPM): 23 (01/24/18818) Tidal Volume Set (mL): 480 (01/24/18818) Exhaled Tidal Volume (mL): 669 (01/24/18818) Minute Volume (L): 13.5 (01/24/18818) Peak Inspiratory Pressure (cm H2O): 11 (01/24/18818) PEEP/CPAP (cm H2O): 5 (01/24/18818) HEMODYNAMIC DATA: Reviewed NUTRITION: Enteral Feeds: TPN at 75 ml/hr DATA: Diagnostic tests reviewed for today's visit, films/specimens were personally reviewed by me: Most recent labs and imaging results. LABS: Recent Labs 01/24/1841901/23/18 1020 WBC 13.44* < > -- RBC 2.48* < > -- HB 7.1* < > -- HCT 21.8* < > -- MCV 87.9 < > -- PLT 141 < > -- GLUC 189* -- -- BUN 57* -- -- CREAT 1.80* -- -- NA 141 -- -- K 4.5 -- -- CHLOR 106 -- -- CO2 23 -- -- TPROT 5.0* -- -- ALB 1.3* -- -- CA 7.2* -- -- ALKPHOS 297* -- -- TBILI 6.3* -- -- AST 132* -- -- ALT 103* -- -- PTSEC 10.6 -- 10.0 APTT -- -- 23.9 INR 1.00 -- 0.93 MG 2.7* -- -- < > = values in this interval not displayed. ABG: Recent Labs 01/24/18 04201/23/18 2235 01/23/18 1655 PH 7.418 7.452* 7.428 PO2 173.6* 132.8* 134.2* PCO2 35.1* 31.4* 32.6* Assessment/Plan IMPRESSION: Critical Care Documentation: The patient has the following organ/system impairment(s): Respiratory failure (with Hypoxemia) ? 1.Acute hypoxic respiratory failure/ARDS/Bilat pleuaral effusions-remains intubated on 40% FIO2 2. Ruptured AAA ?Sp repair-Wound closed vac in place draining sm amt serosanguinous drainage 3.SP cardiac arrest 4.Shock-Levophed support 5. Pt is nonresponsive-even to noxious stimuli-Encephalopathy 6.Thrombocytopenia 7.Nutritional support-TPN 8.Sinus tachycardia-SVT resolved 9.TERENCE on CKD-on CRRT 10. Fentanyl drip at 100mcg/kh for pain control 11. Nephro plans to place femoral dialysis line 12. Acute blood loss anemia-transfuse This patient has a high probability of sudden, clinically significant deterioration, which requires the highest level of physician preparedness to intervene urgently. I managed/supervised life or organ supporting interventions that required frequent physician assessment. I devoted my full attention to the direct care of this patient for the amount of time indicated below. Time I spent with family or surrogate(s) is included only if the patient was incapable of providing the necessary information or participating in medical decision making. Time devoted to teaching is not included. Discussed with staff/patient/family Time spent providing critical care services: 35 minutes excluding procedures. SIGNATURE: Paulo Lovelace APRN.MAINTENANCE TEAM MEMBER PATIENT NAME: Naveen Akins DATE: January 24, 2018 TIME: 10:02 AM PROGRESS Observed: 01/24/2018 Status: COMPLETED Source: [place] 9:07 AM [facility] REPOSITORY [facility] ID: [id number] Author: Venkat Paniagua Service: Vascular Surgery Author Type: Physician Type: Progress Notes Filed: 01/24/2018 3:31 PM Note Text: Vascular Surgery Progress Note SERVICE DATE: 01/24/2018 Vascular AND Thoracic Surgery Service Pager: For questions or concerns Mon-Fri 6a-5p please page [phone]. After 5pm and on Weekends and Holidays, please page [phone] if in ICU or [phone] if on RNF. Subjective SUBJECTIVE: Levo restarted overnight Diet: Parenteral Nutrition - Adult DIET TUBE FEED - CONTIN (NO TRAY) Objective OBJECTIVE: Vitals: Temp (24hrs), Av.8 ?C (98.2 ?F), Min:35.7 ?C (96.3 ?F), Max:37.5 ?C (99.5 ?F) BP 132/57 Pulse 79 Temp (!) 35.7 ?C (96.3 ?F) (Axillary) Resp 26 Ht 172.7 cm (5' 8) Wt 83.6 kg (184 lb 4.9 oz) SpO2 99% BMI 28.02 kg/m? O2 Therapy: Ventilator IANDO: Date 01/23/18 07 - 01/24/18 0659 01/24/18 07 - 01/25/18 0659 Shift 4126-0700 9672-6682 3637-5985 24 Hour Total 7021-5430 2056-6304 2272-5214 24 Hour Total I N T A K E PO 14 14 Tube Feed Intake (GI Feed/Drain 01/12/18 010) 14 14 IV 311 313.4 335.2 959.6 NS 0.9% 57.5 28.8 77.2 163.5 Fentanyl Volume 77 39.7 116.7 Dexmedetomidine IV 74 59.8 135.5 269.3 NORepinephrine Volume 31.5 4.3 12.2 48 Propofol IV 48 43.5 70.6 162.1 Ampicillin/Sulbactam (Unasyn) IV 100 100 200 TPN/PPN 585.4 488.8 600.6 1674.8 TPN 585.4 488.8 600.6 1674.8 Irrigants 60 60 Irrigant/Flush Amount In (GI Feed/Drain ) 60 60 Shift Total 896.4 802.2 1009.8 2708.4 O U T P U T Urine 100 150 250 Void (ml) 100 150 250 Urine Incontinence/Not Saved 3 x 3 x Tubes 0 150 35 185 0 0 Drain/Tube Output (Drain/Tube 01/19/18 1015 Midline Abdomen) 0 0 10 10 0 0 Output (GI Feed/Drain 01/12/18 010) 150 25 175 # of BMs Number of BMs 0 x 0 x 0 x Dialysis 1434 579 041 4605 93 93 Dialysis Output (Ultrafiltration) 1434 030 553 3030 93 93 Shift Total 1434 110 687 9947 93 93 Weight (kg) 86.2 86.2 83.6 83.6 83.6 83.6 83.6 83.6 MEDICATIONS Current Facility-Administered Medications: Parenteral Nutrition - Adult INTRAVENOUS ONCE TPN (1800 START) senna leaf extract 176 mg/5 mL 528 mg 15 mL OROGASTRIC BID dexmedetomidine 400 mcg in NaCl 0.9% 100 mL (PRECEDEX) 0.2- 0.7 mcg/kg/hr INTRAVENOUS CONTINUOUS carboxymethylcellulose sodium 1-2 Drop (CELLUVISC) 1-2 Drop BOTH EYES PRN polyvinyl alcohol-povidone 1.4-0.6 % 1 Drop (REFRESH) 1 Drop BOTH EYES QID PRN propofol infusion (DIPRIVAN) 0-15 mcg/kg/min (Adjusted) INTRAVENOUS CONTINUOUS hydrocortisone sodium succinate (PF) 50 mg injection (Solu- CORTEF) 50 mg INTRAVENOUS q 8 H heparin 1,000 unit/mL 4,000 Units injection 4,000 Units INTRAVENOUS 3 Times weekly with dialysis heparin 5,000 Units injection 5,000 Units SUBCUTANEOUS q 12 H NaCl 0.9% 1,000 mL iv bolus 1,000 mL INTRAVENOUS PRN DIALYSIS prismaSOL BGK 4 K / 2.5 mEq Ca/Liter 5,000 mL 5,000 mL HEMODIALYSIS continuous (no dispense) prismaSOL BGK 4 K / 2.5 mEq Ca/Liter 5,000 mL 5,000 mL HEMODIALYSIS continuous (no dispense) prismaSOL BGK 4 K / 2.5 mEq Ca/Liter 5,000 mL 5,000 mL HEMODIALYSIS continuous (no dispense) dextrose 40 % 15 g 15 g ORAL PRN Or glucagon 1 mg injection (GLUCAGEN) 1 mg INTRAMUSCULAR PRN Or dextrose 50% in water 25 mL syringe 12.5 g INTRAVENOUS PRN magnesium sulfate 1 g in D5W 100 mL 1 g INTRAVENOUS PRN magnesium sulfate in water 2 g in sterile water 50 ml 2 g INTRAVENOUS PRN fentaNYL 20 mcg/mL iv infusion in NaCl 0.9% 100 mL 0-100 mcg/hr INTRAVENOUS CONTINUOUS pantoprazole 40 mg injection (PROTONIX) 40 mg INTRAVENOUS DAILY (6 AM) NORepinephrine 16 mg in D5W 250 mL (LEVOPHED) 0-30 mcg/min INTRAVENOUS CONTINUOUS Chlorhexidine Gluconate 0.12 % 15 mL (PERIDEX) 15 mL ORAL q 12 H Labs: Recent Labs 01/24/18 0420 01/23/18 2235 01/23/18 1655 01/23/18 1020 01/23/18 0435 NA 141 -- -- -- -- 139 K 4.5 -- -- -- -- 5.0 CHLOR 106 -- -- -- -- 106 CO2 23 -- -- -- -- 22 BUN 57* -- -- -- -- 54* CREAT 1.80* -- -- -- -- 1.75* GLUC 189* -- -- -- -- 234* ANION 17* -- -- -- -- 16 CA 7.2* -- -- -- -- 7.4* MG 2.7* -- -- -- -- 2.8* P 3.5 -- -- -- -- 4.7 ALB 1.3* -- -- -- -- 1.4* AST 132* -- -- -- -- 127* ALT 103* -- -- -- -- 87* ALKPHOS 297* -- -- -- -- 344* TBILI 6.3* -- -- -- -- 7.2* WBC 13.44* -- 15.41* -- -- 15.80* HB 7.1* -- 8.2* -- -- 8.0* HCT 21.8* -- 25.0* -- -- 24.0* PLT 141 -- 152 -- -- 130* INR 1.00 -- -- -- 0.93 -- PH 7.418 7.452* 7.428 < > -- 7.399 PCO2 35.1* 31.4* 32.6* < > -- 35.3* PO2 173.6* 132.8* 134.2* < > -- 204.9* BE -2.1 -2.1 -2.8 < > -- -3.1 < > = values in this interval not displayed. Exam: GENERAL: No distress NEURO: Sedated, not following commands HEENT: normocephalic, atraumatic, pupils reactive, +icterus LUNGS: Unlabored breathing O2 Therapy: Ventilator CARDIAC: Regular rate and rhythm as above, hypotensive requiring Levo @ 4 ABDOMEN: Soft, non-tender, non-distended, VAC and retention sutures intact EXTREMITIES: MAK, No deformities, + edema, palpable pulses SKIN: Skin texture, turgor normal, No rashes or lesions, +jaundice ASSESSMENT AND PLAN: Active Hospital Problems Diagnosis Date Noted - Ruptured abdominal aortic aneurysm (AAA) ([facility]) 01/12/2018 - Obesity, Class I, BMI 30-34.9 01/16/2018 - Encephalopathy 01/13/2018 - DIC (disseminated intravascular coagulation) ([facility]) 01/12/2018 - Hemorrhagic shock ([facility]) 01/12/2018 - Acute respiratory failure ([facility]) 01/12/2018 - Cardiac arrest ([facility]) 01/12/2018 - Hypernatremia 01/12/2018 - Hypokalemia 01/12/2018 - Hypomagnesemia 01/12/2018 - Hypophosphatemia 01/12/2018 - Hyperchloremia 01/12/2018 - AAA (abdominal aortic aneurysm, ruptured) ([facility]) 01/12/2018 Overview Note: Added automatically from request for surgery [id number] 77 year old male with Ruptured AAA s/p Emergent Repair, takeback washout, repair of serosal tears x2, on 01/12, hemorrhagic shock, acute resp failure with pulm edema, TERENCE, SVT, s/p Third Look Laparotomy and?washout on 01/14, fourth look, washout, vac change on 01/16, Partial fascial closure on 01/19 ? - Vent mgmt per MICU - Advance TFs to goal as tolerated, wean TPN - Wean Levo and sedation as able - Acute blood loss and dilutional anemia and thrombocytopenia - monitor, transfuse prn --> 2u pRBCs today - TERENCE -->?CVVHD per?Nephro, diurese as tolerates - CXR stable - cont scrotal support - Cont WV --> wound care following for VAC changes - Hyperbilirubinemia and Transaminitis --> trend LFTs, Abd US WNL - Solucortef 50mg q8h per MICU - Leukocytosis - reactive and steroid related, afebrile, monitor - Left Pleural Effusion --> Thoracentesis pending ? Overall goals: - now with resp status stabilized and no additional trips to OR planned will continue to wean sedation in order to get accurate Neuro exam, Neuro consulted - discuss goals of care - Trach/PEG likely this week ?? Assessment and plan discussed with attending: Dr. Paniagua SIGNATURE: Dionicio Stevens MD PATIENT NAME: Naveen Akins DATE: January 24, 2018 TIME: 9:08 AM Vascular AND Thoracic Surgery Service Pager: For questions or concerns Mon-Tue 6a-5p please page [phone]. After 5pm and on Weekends and Holidays, please page [phone] if in ICU or [phone] if on RNF. Patient was seen and evaluated and I had several discussions with consulting services. We opened a consultation with wound care for ongoing care of his wound VAC. I discussed this situation with the wound care nurses. I also discussed the case with Dr. gupta who is going to move his dialysis catheter to the groin hopefully giving us the chance to allow the neck to heal up so that as we progress we could put a tunneled dialysis catheter in the left neck. As we become more hemodynamically stable consideration will be given to placement of a PICC line for access for long-term therapy. Overall the patient seems to be stable his liver functions are stabilizing he is to receive a left pleural effusion thoracentesis. We are still in process of proceeding to a point that his neurologic recovery can be better assessed however I do agree that trach and PEG will need to be done this week if we are to continue therapy and supportive measures. PLAN OF CARE Observed: 01/24/2018 Status: COMPLETED Source: [place] 8:02 AM [facility] REPOSITORY O ID: [id number] Author: Dorie Schofield (Pharmacist) Service: Pharmacy Author Type: Pharmacist Type: Plan of Care Filed: 01/26/2018 3:33 PM Note Text: MEDICATION HISTORY AND MEDICATION RECONCILIATION Patient Name:Tom Akins : 1940 Source of history:Family: Reliability of source: Only knew pharmacy he fills at ([facility] in [place]- called) Medication Nonadherence Identified: Unable to verify at this time The above information represents the best possible medication history: Yes Reconciliation completed? Yes All [employer] medications addressed by LIP Additional comments: Unable to discuss with Shelly (spouse) at this time. Most recent medication picked up was a 7 day course of Augmentin BID on 01/11/18. Allergies: ALLERGIES No Known Allergies Preferred Pharmacy: [facility] ([phone]) Current [employer] Medications: Prior to Admission medications as of 01/24/18 1710 Medication Sig Last Dose Taking metoprolol succinate(TOPROL XL 50 MG 24 HR TAB) Take one(1) tablet daily. 01/11/2018 Yes ASPIRIN 325 MG TAB Take one(1) tablet daily. 01/11/2018 Yes triamterene/hydrochlorothiazid(DYAZIDE 37.5 MG-25 MG CAP) take one half (1/2) tablet daily 01/11/2018 Yes LIPITOR 10 MG TAB Take one(1) tablet daily. 01/11/2018 Yes DORIE SCHOFIELD, PHARMACIST January 24, 2018 8:02 AM CHEST 1 VIEW Observed: 01/24/2018 Status: F Source: [facility] 6:12 AM HEALTH SYSTEM REPOSITORY Performed at [facility] APPROVED BY: Matt Geiger MD EXAM TITLE: CHEST 1 VIEW DATE: 01/24/2018 05:52 INDICATION: Intubated. Abdominal aortic aneurysm repair. COMPARISON: 01/23/2018 at 0509. Portable frontal view of the chest shows tip of endotracheal tube at the level of T3. An enteric tube is seen passing into the stomach. Right internal jugular central line with tip in the right atrium. Left internal jugular central line with tip in the midsuperior vena cava. Heart size is normal. Bilateral lung parenchymal infiltrates. Stable. No pneumothorax. IMPRESSION: Stable appearance of lines and tubes. Stable appearance of lung parenchymal infiltrates. Edema is the top consideration. Underlying pneumonia cannot be excluded. HEMOGRAM/DIFF Collected: 01/24/2018 Status: F Source: [facility] 4:20 AM HEALTH SYSTEM REPOSITORY TYPE CODE TESTS RESULT OUT OF REFERENCE UNITS RANGE LAB WBC(LOINC) 4.23-9.07 thou/cmm WBC High 13.44 LAB RBC(LOINC) 4.63-6.08 mil/cmm Low RBC 2.48 LAB HGB(LOINC) 13.7-17.5 g/dL Low Hgb 7.1 LAB HCT(LOINC) 40.1-51.0 % Low Hct 21.8 LAB MCV(LOINC) 83.2-95.6 fl MCV 87.9 LAB MCH(LOINC) 25.7-32.2 pg MCH 28.6 LAB MCHC(LOINC 32.3-36.5 % ) MCHC 32.6 LAB RDW(LOINC) 11.6-14.4 % RDW High 21.9 LAB RDWSD(LOIN 36.1-45.8 fl C) RDW SD High 66.5 LAB PLT(LOINC) 141-365 thou/cmm Platelet 141 LAB MPV(LOINC) 8.7-12.0 fl MPV High 12.3 LAB NRBCR(LOIN 0.0-0.2 % C) Nucleated RBC % 0.1 LAB NRBCA(LOIN 0.00-0.01 thou/cmm C) High Nucleated RBC 0.02 Absolute LAB SEG(LOINC) % Seg Neutrophil 89.5 LAB IGRE(LOINC % ) Immature Grans 5.10 LAB LYMPH(LOIN % C) Lymphocyte 3.1 LAB MNO(LOINC) % Monocyte 2.1 LAB EOSIN(LOIN % C) Eosinophil 0.1 LAB BASO(LOINC % ) Basophil 0.1 LAB SEGN(LOINC 1.78-5.38 thou/cmm ) Abs. High Neut (ANC) 12.03 LAB IGAB(LOINC 0.00-0.05 thou/cmm ) Abs High Immature Grans 0.69 LAB LYMN(LOINC 0.84-2.85 thou/cmm ) Low Abs. Lymph 0.42 LAB MONON(LOIN 0.30-0.82 thou/cmm C) Low Abs. Rincon 0.28 LAB EOSN(LOINC 0.04-0.54 thou/cmm ) Low Abs. Eosin 0.01 LAB BASON(LOIN 0.01-0.08 thou/cmm C) Abs. Baso 0.01 Result Comment: Smear scanned; tech agrees with automated differential Performed By: #### CBCD1 #### [place] [address] PROTIME Collected: 01/24/2018 Status: F Source: [facility] 4:20 AM HEALTH SYSTEM REPOSITORY TYPE CODE TESTS RESULT OUT OF REFERENCE UNITS RANGE LAB PTI(LOINC) 9.3-11.9 sec Prothrombin Time 10.6 LAB INR(LOINC) INR 1.00 Result Comment: Standard Therapy 2.0-3.0 High Dose 2.5-3.5 Performed By: #### PT #### [place] [address] MAGNESIUM BLOOD Collected: 01/24/2018 Status: F Source: [facility] 4:20 AM HEALTH SYSTEM REPOSITORY TYPE CODE TESTS RESULT OUT OF REFERENCE UNITS RANGE LAB MAG(LOINC) 1.6-2.6 mg/dL High Magnesium Blood 2.7 Performed By: #### MAG #### [address], [place] [address] PHOSPHORUS BLOOD Collected: 01/24/2018 Status: F Source: [facility] 4:20 AM HEALTH SYSTEM REPOSITORY TYPE CODE TESTS RESULT OUT OF REFERENCE UNITS RANGE LAB PHOS(LOINC 2.5-4.9 mg/dL ) Phosphorus Blood 3.5 Performed By: #### PHOS #### [place] [address] BASIC PANEL Collected: 01/24/2018 Status: F Source: [facility] 4:20 AM HEALTH SYSTEM REPOSITORY TYPE CODE TESTS RESULT OUT OF REFERENCE UNITS RANGE LAB NA(LOINC) 136-145 mEq/L Sodium Blood 141 LAB K(LOINC) 3.5-5.1 mEq/L Potassium Blood 4.5 LAB CL(LOINC) 98-107 mEq/L Chloride Blood 106 LAB CO2(LOINC) 21-32 mEq/L CO2 Blood 23 LAB GLU(LOINC) 70-99 mg/dL Glucose High Blood 189 LAB BUN(LOINC) 7-18 mg/dL BUN High Blood 57 LAB CREA(LOINC 0.67-1.17 mg/dL ) High Creatinine Blood 1.80 LAB CA(LOINC) 8.5-10.1 mg/dL Low Calcium Blood 7.2 LAB ANGAP(LOIN 8-16 C) Anion High Gap 17 Performed By: #### P8 #### [place] [address] HEPATIC PANEL Collected: 01/24/2018 Status: F Source: [facility] 4:20 AM HEALTH SYSTEM REPOSITORY TYPE CODE TESTS RESULT OUT OF REFERENCE UNITS RANGE LAB ALB(LOINC) 3.4-5.0 g/dL Low Albumin Blood 1.3 LAB ALT(LOINC) 12-78 U/L ALT-SGPT High Blood 103 LAB ALKP(LOINC 46-116 U/L ) Alk High Phosphatase 297 LAB TP(LOINC) 6.4-8.2 g/dL Low Total Protein 5.0 LAB AST(LOINC) 9-37 U/L AST-SGOT High Blood 132 LAB BILIT(LOIN 0.2-1.0 mg/dL C) Total High Bilirubin 6.3 LAB DBIL(LOINC 0.00-0.20 mg/dL ) Direct High Bilirubin 5.35 Performed By: #### HEPAP #### [facility] [address] [place], [place] [address] TRIGLYCERIDE BLOOD Collected: 01/24/2018 Status: F Source: [facility] 4:20 AM HEALTH SYSTEM REPOSITORY TYPE CODE TESTS RESULT OUT OF REFERENCE UNITS RANGE LAB TRIG(LOINC 0-149 mg/dL ) Triglyceride High Blood 560 Result Comment: < 200 Desirable Result invalid if not a fasting specimen. Performed By: #### TRIG #### [facility] [address] [place], [place] [address] OPERATIVE NO Observed: 01/24/2018 Status: COMPLETED Source: [facility] 12:00 AM CLINIC OTHER CAMPUS REPOSITORY HNO ID: [id number] Author: Venkat Paniagua Service: Vascular Surgery Author Type: Physician Type: Operative Report Filed: 01/27/2018 9:08 AM Note Text: [facility] - Operative Report SURGEON: Venkat Paniagua MD PATIENT NAME: NAVEEN AKINS CSN: [id number] DATE OF SURGERY: 01/16/2018 DATE OF : 1940 SEX/AGE: M/77 PATIENT TYPE: I HOSP SV: LICO LOCATION: [id number] DATE OF SURGERY: 01/16/2018 SURGEON: Venkat Paniagua MD The patient is an inpatient. PREOPERATIVE DIAGNOSIS: Status post ruptured aneurysm with open abdomen. POSTOPERATIVE DIAGNOSIS: Status post ruptured aneurysm with open abdomen. PROCEDURE: Exploratory laparotomy, change of wound vacuum-assisted closure, and abdominal washout. VISUAL ARTS TEACHER: Kannan Felder MD and Lotus Schuler SA. ANESTHESIA: General. HISTORY: This patient is status post ruptured abdominal aortic aneurysm, brought back today to determine if we needed to just change his wound VAC or if he potentially was able to be closed. The patient also was to have exploration to reassess for any evidence of bowel ischemia. PROCEDURE IN DETAIL: With the patient in supine position under adequate general anesthesia, the previously placed wound VAC was removed after he had been prepped and draped into the field. We removed this and then explored the abdominal cavity. The omentum was reflected and the bowel was run. There was no evidence of any problems. We checked the 2 areas that we had some serosal tearing and these appeared to be intact. We did very carefully inspect the retroperitoneum without disturbing the aneurysm sac and retroperitoneum that had been placed down over this. This appeared to be in good condition, and there was no evidence of bleeding here. There was no significant hematoma here. We pulled the sigmoid colon up and looked at it, and the sigmoid colon appeared viable through the rectosigmoid. At this point in time, we allowed the abdominal contents to return to their normal position. The omentum was pulled down and we attempted to bring the midline fascia together. There was a significant amount of tension still, and we still had a significant amount of bowel edema, and as we were pulling on this, the patient went into a supraventricular tachycardia. With this being the case, we felt that the patient probably would not be a good candidate for closure at this time, and therefore a new ABThera device was brought onto the field and appropriately applied, and then connected to suction. Once this was accomplished, we saw that anesthesia had stabilized the patient from his intermittent hemodynamic instability, and he was stable enough to return to the Intensive Care Unit at this time. There were no complications noted. Sponge counts were correct and no lap sponges were left in the abdomen. Note is made that the patient still needs a completion film at the end of closure as no initial instrument count had been done prior to the initial procedure as this was done urgently. The patient tolerated the procedure reasonably well, and was returned to the Cardiovascular Intensive Care Unit in stable, but critical condition. Venkat Paniagua MD Vascular Surgery HORACEW:mika /[id number] CONSULT Observed: 01/23/2018 Status: COMPLETED Source: [place] 10:36 PM [facility] REPOSITORY O ID: [id number] Author: Noel Garcia MD Service: Neurology General Author Type: Resident Type: Consults Filed: 01/25/2018 3:07 PM Note Text: Attestation signed by Brad Castillo at 02/23/2018 10:54 AM NSICU STAFF ADDENDUM Brad Castillo MD Case d/w family at length. I explained that while he appears to have suffered some degree of anoxic injury, the patient's ultimate recovery cannot be known at this time. He has major obstacles to neurologic recovery but if aggressive supportive care is desired by family a trach and PEG would be needed. All questions addressed at length. PERSONAL INVOLVEMENT IN CARE: ? ?Patient/Family Updated: Patient and/or family were updated regarding the goals of care,?medical plan for the day, employee relations consultant recommendations, medical disposition and current medical condition/prognosis as and if clinically indicated. All questions and concerns were answered and addressed at this juncture. I agree with the resident MD note as above, except as otherwise indicated; my additional comments, if necessary, are in bold. ? This patient has a high probability of sudden, clinically significant deterioration, which requires the highest level of physician preparedness to intervene urgently. I managed/supervised life or organ supporting interventions that required frequent physician assessment. I devoted my full attention to the direct care of this patient for the amount of time indicated below. Time I spent with family or surrogate(s) is included only if the patient was incapable of providing the necessary information or participating in medical decision making. Time devoted to teaching and to any procedures I billed separately is not included. ? Critical Care Documentation: The patient has the following organ/system impairment(s): As above Time spent providing critical care services: 35 minutes. ? SIGNATURE: Brad Castillo MD PATIENT NAME: Naveen Akins DATE: 02/23/18 TIME: 10:52 AM PAGER/CONTACT #: [phone] INITIAL CONSULT - GENERAL NEUROLOGY SERVICE DATE: 01/23/2018 Team Requesting Consult: Vascular Surgery Current Attending Provider: Venkat Paniagua Neurology was asked to evaluate Naveen Akins, a 77 year old male. Our recommendations of care will be communicated by shared medical record. Subjective HPI: Naveen Akins is a 77 year old male transferred in critical condition from [facility] with diagnosed ruptured AAA. Patient was life-flighted to [facility], intubated at outside facility. Per transport, patient went into cardiac arrest immediately prior to arrival and CPR was initiated. 4 U prbc given prior to arrival. Patient was taken emergently to OR on arrival. CPR was continued en route. Hospital course: Patient's ruptured AAA was repaired and has received countless blood product transfusions. He remains intubated, sedated and requiring new TPN and CRRT. Pt was on EEG for 5 days showing severe diffuse encephalopathy. No epileptiform discharges or EEG seizures were recorded. Current hospital medications: Parenteral Nutrition - Adult INTRAVENOUS ONCE TPN (1800 START) senna leaf extract 176 mg/5 mL 528 mg 15 mL OROGASTRIC BID dexmedetomidine 400 mcg in NaCl 0.9% 100 mL (PRECEDEX) 0.2- 0.7 mcg/kg/hr INTRAVENOUS CONTINUOUS carboxymethylcellulose sodium 1-2 Drop (CELLUVISC) 1-2 Drop BOTH EYES PRN polyvinyl alcohol-povidone 1.4-0.6 % 1 Drop (REFRESH) 1 Drop BOTH EYES QID PRN propofol infusion (DIPRIVAN) 0-15 mcg/kg/min (Adjusted) INTRAVENOUS CONTINUOUS hydrocortisone sodium succinate (PF) 50 mg injection (Solu- CORTEF) 50 mg INTRAVENOUS q 8 H heparin 1,000 unit/mL 4,000 Units injection 4,000 Units INTRAVENOUS 3 Times weekly with dialysis heparin 5,000 Units injection 5,000 Units SUBCUTANEOUS q 12 H ampicillin-sulbactam 3 g in NaCl 0.9% 100 mL MB+ (UNASYN) 3 g INTRAVENOUS q 6 H NaCl 0.9% 1,000 mL iv bolus 1,000 mL INTRAVENOUS PRN DIALYSIS prismaSOL BGK 4 K / 2.5 mEq Ca/Liter 5,000 mL 5,000 mL HEMODIALYSIS continuous (no dispense) prismaSOL BGK 4 K / 2.5 mEq Ca/Liter 5,000 mL 5,000 mL HEMODIALYSIS continuous (no dispense) prismaSOL BGK 4 K / 2.5 mEq Ca/Liter 5,000 mL 5,000 mL HEMODIALYSIS continuous (no dispense) dextrose 40 % 15 g 15 g ORAL PRN glucagon 1 mg injection (GLUCAGEN) 1 mg INTRAMUSCULAR PRN dextrose 50% in water 25 mL syringe 12.5 g INTRAVENOUS PRN magnesium sulfate 1 g in D5W 100 mL 1 g INTRAVENOUS PRN magnesium sulfate in water 2 g in sterile water 50 ml 2 g INTRAVENOUS PRN fentaNYL 20 mcg/mL iv infusion in NaCl 0.9% 100 mL 0-100 mcg/hr INTRAVENOUS CONTINUOUS pantoprazole 40 mg injection (PROTONIX) 40 mg INTRAVENOUS DAILY (6 AM) NORepinephrine 16 mg in D5W 250 mL (LEVOPHED) 0-30 mcg/min INTRAVENOUS CONTINUOUS Chlorhexidine Gluconate 0.12 % 15 mL (PERIDEX) 15 mL ORAL q 12 H PAST MEDICAL HISTORY Diagnosis Date - DIC (disseminated intravascular coagulation) (HCC) 01/12/2018 PAST SURGICAL HISTORY Procedure Laterality Date - LAP CHOLECYSTECT/CHOLANGIOGRAPHY 05-28-09 - REPAIR UMBILICAL NATAN,5+Y/O,REDUC 05-28-09 Social History Marital status: Spouse name: Shelly Years of education: 11 Number of children: 4 Occupational History 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 Abdomen: Wound vac overlying midline surgical incision Extremities: Edema Musculoskeletal: moving upper extremities Peripheral Pulses: Normal Neurological: ? Mental Status: Unable to arouse, does not follow commands or tracks Cranial Nerves: CNIII, IV, : Pupils equal, round and reactive to light CN IX: Gag Reflex Intact CN X: Cough intact LABS/DATA: WBC (thou/cmm) Date Value 01/23/2018 15.41 01/23/2018 15.80 01/22/2018 19.08 01/22/2018 17.33 01/21/2018 19.56 RBC (mil/cmm) Date Value 01/23/2018 2.87 01/23/2018 2.78 01/22/2018 3.07 01/22/2018 2.77 01/21/2018 3.04 Platelet Count (thou/cmm) Date Value 01/23/2018 152 01/23/2018 130 01/22/2018 135 01/22/2018 109 01/21/2018 114 BUN (mg/dL) Date Value 01/23/2018 54 01/22/2018 53 01/22/2018 49 01/21/2018 42 01/20/2018 36 Creatinine (mg/dL) Date Value 01/23/2018 1.75 01/22/2018 1.78 01/22/2018 1.80 01/21/2018 1.85 01/20/2018 1.84 No results found for: NEUTP, ABSNEUT, LYMPHP, ABSLYMPH, ABSMONO, EODINP, ABSEOSIN, BASOP, ABSBASO Lab Results Component Value Date PLT 152 01/23/2018 HB 8.2 01/23/2018 HB 15.0 11/14/2017 HCT 25.0 01/23/2018 ALB 1.4 01/23/2018 CA 7.4 01/23/2018 TBILI 7.2 01/23/2018 ALKPHOS 344 01/23/2018 AST 127 01/23/2018 GLUC 234 01/23/2018 BUN 54 01/23/2018 NA 139 01/23/2018 K 5.0 01/23/2018 CHLOR 106 01/23/2018 CO2 22 01/23/2018 ANION 16 01/23/2018 ALT 87 01/23/2018 No results found for: WSR, CRP, IGG No results found for: USCRP No results found for: CHOL No results found for: LDL No results found for: HDL No results found for: TG No results found for: HBA1C DATA: Diagnostic tests reviewed for today's visit: Most recent labs and imaging results. EEG/BEM No seizure Impression/Recommendations This is Naveen Akins, a 77 year old male s/p AAA rupture in multi-system failure - Recommend MRI when patient is stable for MRI - Likely very poor prognosis given multiple system failure SIGNATURE: Noel Garcia MD PATIENT NAME: Naveen Akins DATE: January 23, 2018 TIME: 10:37 PM PAGER/CONTACT #: [phone] BLOOD GAS ARTERIAL Collected: 01/23/2018 Status: F Source: [facility] 10:35 PM HEALTH SYSTEM REPOSITORY TYPE CODE TESTS RESULT OUT OF REFERENCE UNITS RANGE LAB FIO2(LOINC % ) FIO2 40 LAB TEMPA(LOIN C) Temperature 36.8 LAB PH(LOINC) 7.350-7.450 pH Arterial High 7.452 LAB PCO2(LOINC 36.0-46.0 mm Hg ) Low PCO2 Arterial 31.4 LAB PO2(LOINC) 85.0-96.0 mm Hg PO2 High Arterial 132.8 LAB HCO3A(LOIN 22.0-26.0 mEq/L C) Low HCO3- 21.5 LAB O2%A(LOINC 95.0-98.0 % ) O2% Sat High Arterial 98.6 LAB BASEX(LOIN -2.5 to 2.5 mEq/L C) Base Excess -2.1 Performed By: #### ABG #### [facility] [address] [place] [address] ABDOMEN 1 VIEW Observed: 01/23/2018 Status: F Source: [facility] 6:52 PM HEALTH SYSTEM REPOSITORY Performed at [facility] APPROVED BY: KRISTIE KHAN MD ABDOMEN , one view DATE: 01/23/2018 18:43 HISTORY: Enteric tube placement. ENCOUNTER: Not applicable COMPARISON: 01/21/2018 TECHNIQUE: Supine abdomen, 1 image(s) FINDINGS: Interval placement of enteric tube, side port overlies the gastric body and distal tip overlies the distal aspect the stomach. No discrete dilated bowel loops, intraperitoneal portal venous gas. Multiple surgical clips overlying the mid aspect of the abdomen and superior pelvis, essentially unchanged. No discrete suspicious calcifications. Partially visualized is a central venous catheter with tip overlying the right atrium. Multilevel degenerative changes of the thoracic and lumbar spine.. IMPRESSION: INTERVAL INSERTION OF ENTERIC TUBE WITH TIP OVERLYING THE DISTAL ASPECT OF THE STOMACH. NO DISCRETE RADIOGRAPHIC FINDINGS TO SUGGEST ACUTE INTRA-ABDOMINAL PROCESS. PROGRESS Observed: 01/23/2018 Status: COMPLETED Source: [place] 6:47 PM CLINIC OTHER CAMPUS REPOSITORY HNO ID: [id number] Author: Yamel TylerRn) MAGALY Young Service: Dialysis Author Type: Registered Nurse Type: Progress Notes Filed: 01/23/2018 6:52 PM Note Text: Patient restarted on CRRT. Unfortunately hemodialysis catheter function is poor. Pre Blood pump flow, Dialysate flow and replacement flows increased to help to compensate. Dr Lorenzo to place femoral line tomorrow to allow IJ's to heal to prepare for tunnelled line soon. Tolerating fluid removal of 50 ml/ hr at this time. US ABD RIGHT UPPER Observed: 01/23/2018 Status: F Source: [facility] 6:11 PM HEALTH SYSTEM REPOSITORY Performed at [facility] APPROVED BY: Jim Licea MD EXAM TITLE: ULTRASOUND OF THE RIGHT UPPER QUADRANT OF THE ABDOMEN DATE:01/23/2018 16:16 COMPARISON: None. CLINICAL INDICATION/HISTORY: Abnormal liver function tests TECHNIQUE: Scanning was performed by the technologist. A protocol was utilized which targets the right upper quadrant. Images were saved to PACS. FINDINGS: Liver: Normal in size and echotexture with no focal lesion or ductal dilatation. Gallbladder: Surgically absent Common bile duct is normal in caliber measuring 5 mm. Pancreas: Not well visualized due to incisions and dressing Large left pleural effusion. Small right pleural effusion. Right kidney: No hydronephrosis is seen. There is a 1.7 cm cyst. Spleen: Normal in size and appearance measuring 11.7 x 3.5 x 3.4 cm. IMPRESSION: Unremarkable ultrasound of the right upper quadrant status post cholecystectomy. There were some technical limitations. If there is further concern for abnormal liver function tests, consider cross-se ctional contrast enhanced imaging. Bilateral pleural effusions. BLOOD GAS ARTERIAL Collected: 01/23/2018 Status: F Source: [facility] 4:55 PM HEALTH SYSTEM REPOSITORY TYPE CODE TESTS RESULT OUT OF REFERENCE UNITS RANGE LAB FIO2(LOINC % ) FIO2 40 LAB TEMPA(LOIN C) Temperature 37.0 LAB PH(LOINC) 7.350-7.450 pH Arterial 7.428 LAB PCO2(LOINC 36.0-46.0 mm Hg ) Low PCO2 Arterial 32.6 LAB PO2(LOINC) 85.0-96.0 mm Hg PO2 High Arterial 134.2 LAB HCO3A(LOIN 22.0-26.0 mEq/L C) Low HCO3- 21.0 LAB O2%A(LOINC 95.0-98.0 % ) O2% Sat High Arterial 98.6 LAB BASEX(LOIN -2.5 to 2.5 mEq/L C) Base Excess -2.8 Performed By: #### ABG #### [facility] [address] [place] [address] HEMOGRAM Collected: 01/23/2018 Status: F Source: [facility] 4:55 PM HEALTH SYSTEM REPOSITORY TYPE CODE TESTS RESULT OUT OF REFERENCE UNITS RANGE LAB NRBCR(LOIN 0.0-0.2 % C) Nucleated RBC % 0.2 LAB NRBCA(LOIN 0.00-0.01 thou/cmm C) High Nucleated RBC 0.03 Absolute LAB WBC(LOINC) 4.23-9.07 thou/cmm WBC High 15.41 LAB RBC(LOINC) 4.63-6.08 mil/cmm Low RBC 2.87 LAB HGB(LOINC) 13.7-17.5 g/dL Low Hgb 8.2 LAB HCT(LOINC) 40.1-51.0 % Low Hct 25.0 LAB MCV(LOINC) 83.2-95.6 fl MCV 87.1 LAB MCH(LOINC) 25.7-32.2 pg MCH 28.6 LAB MCHC(LOINC 32.3-36.5 % ) MCHC 32.8 LAB RDW(LOINC) 11.6-14.4 % RDW High 21.6 LAB RDWSD(LOIN 36.1-45.8 fl C) RDW High SD 60.9 LAB PLT(LOINC) 141-365 thou/cmm Platelet 152 LAB MPV(LOINC) 8.7-12.0 fl MPV High 12.7 Performed By: #### CBC1 #### [place] [address] PREALBUMIN Collected: 01/23/2018 Status: F Source: [facility] 4:55 PM HEALTH SYSTEM REPOSITORY TYPE CODE TESTS RESULT OUT OF REFERENCE UNITS RANGE LAB PAB(LOINC) 20.0-40.0 mg/dL Low Prealbumin 18.6 Performed By: #### PAB #### [facility] [address] [place] [id number] PROGRESS Observed: 01/23/2018 Status: COMPLETED Source: [place] 3:18 PM CLINIC OTHER CAMPUS REPOSITORY HNO ID: [id number] Author: Shen Lorenzo Service: Nephrology Author Type: Physician Type: Progress Notes Filed: 01/23/2018 3:24 PM Note Text: Nephrology Progress Note Following for TERENCE. Pt is intubated/sedated. Cannot obtain ROS. Current Inpatient Medications: Current Facility-Administered Medications Ordered in Epic: Parenteral Nutrition - Adult INTRAVENOUS ONCE TPN (1800 START) H Edwin Dudley Parenteral Nutrition - Adult INTRAVENOUS ONCE TPN (1800 START) H Edwin Dudley Last Rate: 75 mL/hr at 01/22/18 1800 senna leaf extract 176 mg/5 mL 528 mg 15 mL OROGASTRIC BID Dionicio (Res) Stevens 528 mg at 01/23/18 0923 dexmedetomidine 400 mcg in NaCl 0.9% 100 mL (PRECEDEX) 0.2- 0.7 mcg/kg/hr INTRAVENOUS CONTINUOUS Paulo (Meter Repair Shop Supervisor) [place] Last Rate: 9.67 mL/hr at 01/23/18 0604 0.4 mcg/kg/hr at 01/23/18 0604 carboxymethylcellulose sodium 1-2 Drop (CELLUVISC) 1-2 Drop BOTH EYES PRN Venkat Paniagua 2 Drop at 01/22/18 2049 polyvinyl alcohol-povidone 1.4-0.6 % 1 Drop (REFRESH) 1 Drop BOTH EYES QID PRN Paulo (Meter Repair Shop Supervisor) [place] 1 Drop at 01/21/18 1641 propofol infusion (DIPRIVAN) 0-15 mcg/kg/min (Adjusted) INTRAVENOUS CONTINUOUS Dionicio (Res) Stevens Last Rate: 5.95 mL/hr at 01/23/18 1100 12 mcg/kg/min at 01/23/18 1100 hydrocortisone sodium succinate (PF) 50 mg injection (Solu- CORTEF) 50 mg INTRAVENOUS q 8 H Shen Lorenzo 50 mg at 01/23/18 1327 heparin 1,000 unit/mL 4,000 Units injection 4,000 Units INTRAVENOUS 3 Times weekly with dialysis Troy Godoy 4,000 Units at 01/22/18 2049 heparin 5,000 Units injection 5,000 Units SUBCUTANEOUS q 12 H Mervin (Res) Wally 5,000 Units at 01/23/18 0934 ampicillin-sulbactam 3 g in NaCl 0.9% 100 mL MB+ (UNASYN) 3 g INTRAVENOUS q 6 H Dorcas Palafox Last Rate: 200 mL/hr at 01/23/18 1238 3 g at 01/23/18 1238 NaCl 0.9% 1,000 mL iv bolus 1,000 mL INTRAVENOUS PRN DIALYSIS Shen Lorenzo prismaSOL BGK 4 K / 2.5 mEq Ca/Liter 5,000 mL 5,000 mL HEMODIALYSIS continuous (no dispense) Shen Lorenzo Last Rate: 700 mL/hr at 01/16/18 1300 5,000 mL at 01/23/18 0604 prismaSOL BGK 4 K / 2.5 mEq Ca/Liter 5,000 mL 5,000 mL HEMODIALYSIS continuous (no dispense) Shen Lorenzo Last Rate: 700 mL/hr at 01/16/18 1300 5,000 mL at 01/23/18 0604 prismaSOL BGK 4 K / 2.5 mEq Ca/Liter 5,000 mL 5,000 mL HEMODIALYSIS continuous (no dispense) Shen Lorenzo Last Rate: 700 mL/hr at 01/16/18 1300 5,000 mL at 01/23/18 0604 dextrose 40 % 15 g 15 g ORAL PRN Jack Regula Or glucagon 1 mg injection (GLUCAGEN) 1 mg INTRAMUSCULAR PRN Jack Regula Or dextrose 50% in water 25 mL syringe 12.5 g INTRAVENOUS PRN Jack Regula magnesium sulfate 1 g in D5W 100 mL 1 g INTRAVENOUS PRN Emilie (Res) Cardella Last Rate: 100 mL/hr at 01/15/18 0016 1 g at 01/15/18 0016 magnesium sulfate in water 2 g in sterile water 50 ml 2 g INTRAVENOUS PRN Emilie (Res) Cardella Last Rate: 25 mL/hr at 01/13/18 1004 2 g at 01/13/18 1004 fentaNYL 20 mcg/mL iv infusion in NaCl 0.9% 100 mL 0-100 mcg/hr INTRAVENOUS CONTINUOUS Smooth C Winston Last Rate: 5 mL/hr at 01/22/18 2154 100 mcg/hr at 01/22/18 2154 pantoprazole 40 mg injection (PROTONIX) 40 mg INTRAVENOUS DAILY (6 AM) Emilie (Res) Cardella 40 mg at 01/23/18 0557 NORepinephrine 16 mg in D5W 250 mL (LEVOPHED) 0-30 mcg/min INTRAVENOUS CONTINUOUS Dionicio (Res) Stevens Stopped at 01/23/18 1440 Chlorhexidine Gluconate 0.12 % 15 mL (PERIDEX) 15 mL ORAL q 12 H Elder Yu) Kalee 15 mL at 01/23/18 0921 No current [facility]-ordered outpatient prescriptions on file. Vitals: BP 132/57 Pulse 91 Temp 37 ?C (98.6 ?F) Resp 25 Ht 172.7 cm (5' 8) Wt 86.2 kg (190 lb 0.6 oz) SpO2 99% BMI 28.89 kg/m? BLOOD PRESSURE RANGE: No data recorded. ; No data recorded. 24HR INTAKE/OUTPUT: Intake/Output Summary (Last 24 hours) at 01/23/18 1520 Last data filed at 01/23/18 1400 Gross per 24 hour Intake 1831.5 ml Output 3643 ml Net -1811.5 ml Physical exam: Constitutional: Sedated Skin: no rash, turgor wnl Heent: intubated Neck: no bruits or jvd noted Cardiovascular: S1, S2 normal without m/r/g Respiratory: Coarse breath sound bilaterally Abdomen: soft, nt, nd Ext: 3+ lower extremity edema/anasarca Data: Labs: Recent Labs 01/23/18 0435 01/22/18 1800 01/22/18 0420 WBC 15.80* 19.08* 17.33* HB 8.0* 8.8* 8.1* HCT 24.0* 26.1* 23.7* MCV 86.3 85.0 85.6 PLT 130* 135* 109* Recent Labs 01/23/18 0435 01/22/18 1800 01/22/18 1330 01/22/18 0420 NA 139 139 -- 139 K 5.0 4.9 -- 4.8 CO2 22 21 -- 20* MG 2.8* 2.8* 2.8* 2.9* BUN 54* 53* -- 49* CREAT 1.75* 1.78* -- 1.80* CA 7.4* 7.6* -- 7.2* Assessment and Plan 1. Acute kidney injury on chronic kidney disease stage 3. Baseline SCr is 1.36 mg/dL on 11/14/17. CKD is likely due to nephrosclerosis related to PAD. TERENCE is 2/2 ischemic ATN from shock. Pt remains anuric. Currently off pressor. Continue CVVHDF-effluent dose is only 25 mL/kg/hr, so I will increase blood flow rate. If there is issue with blood flow, I will consider changing vascular access for dialysis. Continue UF rate at 50 mL/hr since BP is stable (currently of NE gtt). ? 2. Shock. Initially due to hemorrhagic shock-massive blood loss from ruptured AAA +/- adrenal insufficiency. Currently off pressor. Continue hydrocortisone. ? 5. Ruptured AAA. s/p repair 01/12/18. Management as per vascular surgery. ? 6. Acute hypoxic respiratory failure. Ventilator dependent. Vent management as per ICU. O>I with CRRT UF. See above. Please do not hesitate to contact me at [phone] if there is any question or concern. Rosanna Talbert MD (Shen Lorenzo) CASE MANAGEM Observed: 01/23/2018 Status: COMPLETED Source: [place] 1:00 PM [facility] REPOSITORY HNO ID: [id number] Author: Lorrie Garcia) MAGALY Bo Service: (none) Author Type: Registered Nurse Type: Care Mgt Progress Note Filed: 01/23/2018 1:13 PM Note Text: CARE MANAGEMENT PROGRESS NOTE SERVICE DATE: 01/23/2018 SERVICE TIME: 1:00 PM LOS: 11 days Needs Prior to Discharge: To Be Determined Continue to follow. Remains intubated and sedated. RN is jann Wyatt Currently in NSR. S/p Ruptured AAA s/p Emergent Repair, takeback washout, repair of serosal tears x2, on 01/12, hemorrhagic shock, acute resp failure with pulm edema, TERENCE, SVT, s/p Third Look Laparotomy and?washout on 01/14, fourth look, washout, vac change on 01/16, Partial fascial closure on 01/19. WIll follow neuro consult. No family at bedside currently will follow and assist with transitional needs. SIGNATURE: Lorrie Bo RN PATIENT NAME: Navene Akins DATE: January 23, 2018 TIME: 1:00 PM PAGER/CONTACT #: [phone] NUTRITION Observed: 01/23/2018 Status: COMPLETED Source: [place] 12:59 PM [facility] REPOSITORY HNO ID: [id number] Author: Viry Mosher RD Service: NST-Nutrition Support Team Author Type: Registered Dietitian Type: Nutrition Filed: 01/23/2018 2:12 PM Note Text: Attestation signed by Perla Dudley at 01/23/2018 11:06 PM Discussed with the RD and agree with RD's findings and plan as documented in the RD's note. Cont TPN; hope to be able to transition to enteral feeds Perla Dudley MD NUTRITION SUPPORT TEAM TOPIC: NUTRITION SUPPORT TEAM PROGRESS NOTE PATIENT NAME: Naveen Akins DATE OF : 1940 DATE: 01/23/2018 Nutritional Status: NO MALNUTRITION IDENTIFIED per RD 01/16/18 ? ? NUTRITION CARE PLAN: ? Problem, Etiology and Signs/Symptoms: Altered GI function related to potential ileus as evidenced by lack of bowel sounds, distended abdomen, and hypotension. ? NST consult 01/16/18 for TPN support Interval History: LOS d 11, tolerating TPN, + gut function, OK'd by ICU to start TF via OG, UOP incomplete, no BM, no pain per NPAT, Assessment: 77 year old male with Ruptured AAA s/p Emergent Repair, takeback washout, repair of serosal tears x2, on 01/12, hemorrhagic shock, acute resp failure with pulm edema, TERENCE, SVT s/p Third Look Laparotomy and?washout on 01/14, fourth look, washout, vac change on 01/16 ?remains on vent, continues on CRRT 01/19 X lap, wash out, partial fascial closure, wound vac change 01/20 pressors weaned off Remains on diprivan gtt 01/20 rt thoracentesis- breathing better 01/21 limited abdominal x lap and closure 01/22 levo at pm restarted Tmax: 37.1 WBC: 15.80 Edema: 3+ UE, LE Lines: Art Line, Quad lumen, HD cath, all WNL Lytes: reviewed PAB: not drawn, last level 11.8 WT: 86.2 kg GFR: 37.89 Recommendations: TPN renewed: Increased NACL, DC KCL, no mg in bag, DC K phos, added TE, vit C, and insulin TPN script: 2.4 L /24 hrs providing 1820 calories ( 21 kcals/kg ABW 86 kg) and 80 gms pro ( ~ 1.0 gms/kg ABW 86 kg) per day CHO:insulin ratio is 14: , with 294 gms CHO in TPN , 20 units in TPN bag Ancillary orders completed D/w Dr Palafox, starting of enteral support, with the hopes of weaning TPN off by 01/24 Impact 1.5 at 50-60 cc/hr is goal, start at 10--> provides 1134-2755 calories and 113-135 pro Diprivan @ 10 mcq per hr--> 240 ml per day, or 264 calories from lipid, check Trig levels Collaborated with Dr Dudley and orders written. Vitals: Temperature Max in 24 hours: Temp (24hrs), Av.8 ?C (98.3 ?F), Min:36.3 ?C (97.3 ?F), Max:37.2 ?C (99 ?F) Current Vital Signs: BP 132/57 Pulse 89 Temp 36.7 ?C (98.1 ?F) Resp 23 Ht 172.7 cm (5' 8) Wt 86.2 kg (190 lb 0.6 oz) SpO2 98% BMI 28.89 kg/m? Current Weight: Weight: 86.2 kg (190 lb 0.6 oz) Intake AND Output: Intake/Output Summary (Last 24 hours) at 01/23/18 1259 Last data filed at 01/23/18 1239 Gross per 24 hour Intake 1994.5 ml Output 4133 ml Net -2138.5 ml Laboratory Data: Recent Labs 01/23/18 0435 01/22/18 1800 01/22/18 1330 01/22/18 0420 NA 139 139 -- 139 K 5.0 4.9 -- 4.8 CHLOR 106 105 -- 106 CO2 22 21 -- 20* CREAT 1.75* 1.78* -- 1.80* BUN 54* 53* -- 49* GLUC 234* 216* -- 232* P 4.7 4.4 -- 4.4 TPROT 5.5* -- -- -- ALB 1.4* 1.5* -- -- MG 2.8* 2.8* 2.8* 2.9* CA 7.4* 7.6* -- 7.2* Viry Mosher RD, LD Pager: [phone] Increments: 3 BLOOD GAS ARTERIAL Collected: 01/23/2018 Status: F Source: [facility] 12:50 PM HEALTH SYSTEM REPOSITORY TYPE CODE TESTS RESULT OUT OF REFERENCE UNITS RANGE LAB TEMPA(LOIN C) Temperature 37.0 LAB PH(LOINC) 7.350-7.450 pH Arterial 7.428 LAB PCO2(LOINC 36.0-46.0 mm Hg ) Low PCO2 Arterial 32.4 LAB PO2(LOINC) 85.0-96.0 mm Hg PO2 High Arterial 125.0 LAB HCO3A(LOIN 22.0-26.0 mEq/L C) Low HCO3- 20.9 LAB O2%A(LOINC 95.0-98.0 % ) O2% Sat High Arterial 98.4 LAB BASEX(LOIN -2.5 to 2.5 mEq/L C) Base Excess -3.1 LAB FIO2(LOINC % ) FIO2 40 Performed By: #### ABG #### [facility] [address] [place], [place] [address] PROGRESS Observed: 01/23/2018 Status: COMPLETED Source: [place] 10:37 AM CLINIC OTHER CAMPUS REPOSITORY HNO ID: [id number] Author: Dorcas Palafox Service: Critical Care Author Type: Physician Type: Progress Notes Filed: 01/23/2018 10:59 AM Note Text: MICU - PROGRESS NOTE SERVICE DATE: 01/23/2018 SERVICE TIME: 10:38 AM Admission Date: 01/12/2018 AGE: [age] year old LOS: 11 days Subjective REASON FOR ICU ADMISSION: Renal Failure, Respiratory Failure, Shock, S/P Surgery and right pleural effusion. Remains intubated orally and will weakly open eyes. Sedated with Precedex 0.4 mcg/kg/hr; Propofol 12.7mcg/kg/min; and Fentanyl 100mcg/hr. Now on CVVH. Family at the bedside. Secretions moderately thick yellow-light green. Objective VITAL SIGNS (last 24hrs min/max): Temp Av.8 ?C (98.2 ?F) Min: 36.3 ?C (97.3 ?F) Max: 37.2 ?C (99 ?F) Pulse Av.2 Min: 59 Max: 94 Arterial BP 1 Min: 98/47 Max: 151/66 Cuff No Data Recorded Pain Score: 0/10 Vital signs reviewed. BP 132/57 Pulse 89 Temp (Src) 97.3 (Axillary) Resp 24 Ht 5' 8 (1.73m) Wt 190 lb 0.6 oz (86.2kg) SpO2 99% BMI 28.90 kg/(m2). Temp (24hrs), Av.8 ?C (98.2 ?F), Min:36.3 ?C (97.3 ?F), Max:37.2 ?C (99 ?F) NET FLUID BALANCE Intake/Output Summary (Last 24 hours) at 01/23/18 1038 Last data filed at 01/23/18 1000 Gross per 24 hour Intake 2157.5 ml Output 4088 ml Net -1930.5 ml MEDICATIONS Current Facility-Administered Medications: Parenteral Nutrition - Adult INTRAVENOUS ONCE TPN (1800 START) senna leaf extract 176 mg/5 mL 528 mg 15 mL OROGASTRIC BID dexmedetomidine 400 mcg in NaCl 0.9% 100 mL (PRECEDEX) 0.2- 0.7 mcg/kg/hr INTRAVENOUS CONTINUOUS carboxymethylcellulose sodium 1-2 Drop (CELLUVISC) 1-2 Drop BOTH EYES PRN polyvinyl alcohol-povidone 1.4-0.6 % 1 Drop (REFRESH) 1 Drop BOTH EYES QID PRN propofol infusion (DIPRIVAN) 0-15 mcg/kg/min (Adjusted) INTRAVENOUS CONTINUOUS hydrocortisone sodium succinate (PF) 50 mg injection (Solu- CORTEF) 50 mg INTRAVENOUS q 8 H heparin 1,000 unit/mL 4,000 Units injection 4,000 Units INTRAVENOUS 3 Times weekly with dialysis heparin 5,000 Units injection 5,000 Units SUBCUTANEOUS q 12 H ampicillin-sulbactam 3 g in NaCl 0.9% 100 mL MB+ (UNASYN) 3 g INTRAVENOUS q 6 H NaCl 0.9% 1,000 mL iv bolus 1,000 mL INTRAVENOUS PRN DIALYSIS prismaSOL BGK 4 K / 2.5 mEq Ca/Liter 5,000 mL 5,000 mL HEMODIALYSIS continuous (no dispense) prismaSOL BGK 4 K / 2.5 mEq Ca/Liter 5,000 mL 5,000 mL HEMODIALYSIS continuous (no dispense) prismaSOL BGK 4 K / 2.5 mEq Ca/Liter 5,000 mL 5,000 mL HEMODIALYSIS continuous (no dispense) dextrose 40 % 15 g 15 g ORAL PRN Or glucagon 1 mg injection (GLUCAGEN) 1 mg INTRAMUSCULAR PRN Or dextrose 50% in water 25 mL syringe 12.5 g INTRAVENOUS PRN magnesium sulfate 1 g in D5W 100 mL 1 g INTRAVENOUS PRN magnesium sulfate in water 2 g in sterile water 50 ml 2 g INTRAVENOUS PRN fentaNYL 20 mcg/mL iv infusion in NaCl 0.9% 100 mL 0-100 mcg/hr INTRAVENOUS CONTINUOUS pantoprazole 40 mg injection (PROTONIX) 40 mg INTRAVENOUS DAILY (6 AM) NORepinephrine 16 mg in D5W 250 mL (LEVOPHED) 0-30 mcg/min INTRAVENOUS CONTINUOUS Chlorhexidine Gluconate 0.12 % 15 mL (PERIDEX) 15 mL ORAL q 12 H Lines, Drains, and Airways Line Dialysis / Apheresis Double Lumen 01/13/18 1136 Left Neck 9 days Arterial Line 01/19/18 0840 Arterial Line Right Radial 4 days Central Line Quadruple Lumen 01/19/18 1056 Right Neck 3 days Drain GI Feed/Drain 01/12/18 0100 11 days Drain/Tube 01/19/18 1015 Midline Abdomen 4 days Airway Airway Endotracheal Tube 01/12/18 1138 10 days PHYSICAL EXAM PERFORMED: HEENT: Oral Mucosa: Moist mucous membranes Feeding Tube: Yes. Orogastric tube Eyes: PERRLA Neck: Unremarkable; No adenopathy or JVD Cardiovascular: Regular rhythm Respiratory: Clear to auscultation A/L %FIO2 Min: 45 Max: 50. VENT: PRVC -18 Vt-480ml P-8 FIO2 45% with SaO2 98% PIP 29. Abdomen: Soft, Nontender and Positive bowel sounds Extremities: Edema- Yes and 1+ dependent UE/LE edema at the ankles and feet. Peripheral Pulses- Present all extremities Capillary Refill- less than 3 seconds Skin: Abnormalities- No Neurologic: Sedated and will not move extremities on command. Respiratory/Nursing Documentation: O2 Therapy: Ventilator (01/23/18799) Invasive Ventilator Mode: Pressure Regulated Volume Control (01/23/18730) Set Ventilator Respiratory Rate (BPM): 18 (01/23/18799) Total Respiratory Rate (BPM): 25 (01/23/18730) Tidal Volume Set (mL): 480 (01/23/18799) Exhaled Tidal Volume (mL): 752 (01/23/18730) Minute Volume (L): 20.1 (01/23/18730) Peak Inspiratory Pressure (cm H2O): 15 (01/23/18799) PEEP/CPAP (cm H2O): 8 (01/23/18799) HEMODYNAMIC DATA: NUTRITION: Enteral Feeds: No NPO DATA: Diagnostic tests reviewed for today's visit: Most recent labs and imaging results. LABS: Recent Labs 01/23/18 0435 WBC 15.80* RBC 2.78* HB 8.0* HCT 24.0* MCV 86.3 PLT 130* GLUC 234* BUN 54* CREAT 1.75* NA 139 K 5.0 CHLOR 106 CO2 22 TPROT 5.5* ALB 1.4* CA 7.4* ALKPHOS 344* TBILI 7.2* AST 127* ALT 87* MG 2.8* ABG: Recent Labs 01/23/18 0435 01/22/18 2235 01/22/18 1800 PH 7.399 7.437 7.418 PO2 204.9* 144.4* 101.4* PCO2 35.3* 31.4* 32.4* CULTURES: Other: 01/20: No growth thus far No growth to date right pleural fluid CXR FINDINGS: COMPARISON: 01/22/2018 ? FINDINGS: The ETT, NGT, and bilateral central venous catheters are stable. ?Since the previous exam, there has been slight improvement in bilateral infiltrates. ? Stable small left pleural effusion. ?Heart is not enlarged. ? IMPRESSION: ? Slight improvement in bilateral infiltrates. Assessment/Plan PROBLEMS: ACTIVE PROBLEM LIST Gallstone Pancreatitis Ruptured Abdominal Aortic Aneurysm (Aaa) (Hcc) Dic (Disseminated Intravascular Coagulation) (Hcc) Hemorrhagic Shock (Hcc) Acute Respiratory Failure (Hcc) Cardiac Arrest (Hcc) Hypernatremia Hypokalemia Hypomagnesemia Hypophosphatemia Hyperchloremia Encephalopathy Aaa (Abdominal Aortic Aneurysm, Ruptured) (Hcc) Obesity, Class I, Bmi 30-34.9 1. Hypoxic VDRF with bilateral infiltrates likely pulmonary edema given improvement in CXR from the weekend. 2. S/P ruptured AAA with multiple open laps due to bleeding and washouts. Original surgery 01/12/18 with multipe transfusions 3. TERENCE on CKD 4. PAFib>>>NSR 5. Mild thrombocytopenia--stable at 130K 6. Moderately severe anemia--8.0 7. Shock--on 3.7mcg/min Levofed PLANS FOR TODAY: CRITICAL CARE PLAN: Bronchodilators , Vasopressors, Ventilatory support , Weaning , Surgery and TPN at 75ml/hr Vent wean as tolerated. ?Try enteral feeds soon?--will discuss with Vascular Surgery Back off on Unasyn to q12h given GFR Remains on stress steroids q8hr No further thoracentesis needed. Titrate Propofol to off if possible. Levophed as needed for MAP>65 This patient has a high probability of sudden, clinically significant deterioration, which requires the highest level of physician preparedness to intervene urgently. I managed/supervised life or organ supporting interventions that required frequent physician assessment. I devoted my full attention to the direct care of this patient for the amount of time indicated below. Time I spent with family or surrogate(s) is included only if the patient was incapable of providing the necessary information or participating in medical decision making. Time devoted to teaching is not included. Critical Care documentation: The patient has the following organ system impairments: Patient Updated Yes Family Updated Yes Discussed with Staff Yes Time spent providing critical care services: 40 minutes excluding procedures. SIGNATURE: Dorcas Palafox MD PATIENT NAME: Naveen Akins DATE: January 23, 2018 TIME: 10:38 AM PAGER/CONTACT #: [phone] PROTIME Collected: 01/23/2018 Status: F Source: [facility] 10:20 AM HEALTH SYSTEM REPOSITORY TYPE CODE TESTS RESULT OUT OF REFERENCE UNITS RANGE LAB PTI(LOINC) 9.3-11.9 sec Prothrombin Time 10.0 LAB INR(LOINC) INR 0.93 Result Comment: Standard Therapy 2.0-3.0 High Dose 2.5-3.5 Performed By: #### PT #### [facility] [address] [place] [address] ACTIVATED PTT Collected: 01/23/2018 Status: F Source: [facility] 10:20 AM HEALTH SYSTEM REPOSITORY TYPE CODE TESTS RESULT OUT OF REFERENCE UNITS RANGE LAB APTT(LOINC 22.0-34.0 sec ) Activated PTT 23.9 Performed By: #### APTT #### [facility] [address] [place] [address] ALLIED HEALTH Observed: 01/23/2018 Status: COMPLETED Source: [place] 8:03 AM [facility] REPOSITORY HNO ID: [id number] Author: Chaplain Will (Chaplain) Service: Spiritual Care Author Type: Envelope Stamping Machine Operator Type: Allied Health Filed: 01/23/2018 8:04 AM Note Text: SPIRITUALCARE Spiritual Care Visit- Brief Note Name: Naveen Akins Date: January 23, 2018 Notes: Per request of patient's family I prayed for the patient this morning. Envelope Stamping Machine Operator Signature: Chaplain Suman To contact the Spiritual Care Department: Please call [phone] or Page the On-Call Envelope Stamping Machine Operator at pager [phone] Thank you for the opportunity to be of service. This is an electronically created document. IF PRINTED, PLEASE DO NOT REMOVE FROM THE CHART OR MODIFY PRINTED COPY. PROGRESS Observed: 01/23/2018 Status: COMPLETED Source: [place] 6:23 AM [facility] OTHER [place] REPOSITORY HNO ID: [id number] Author: Dionicio Stevens Service: Vascular Surgery Author Type: Resident Type: Progress Notes Filed: 01/23/2018 12:26 PM Note Text: Attestation signed by Venkat Paniagua at 01/23/2018 6:45 PM I saw and evaluated the patient. Discussed with the resident and agree with resident's findings and plan as documented in the resident's note. I spent some time discussing with the family the fact that the patient may come to tracheostomy and PEG tube later this week. In addition we talked about the fact that he may need a dialysis catheter placed in his groin to allow for healing of the neck and potential use of this for a tunneled dialysis catheter down the line. The fact that the patient is requiring significant degrees of sedation while on the ventilator definitely establishes the fact that he is reacting to painful stimuli and to the ventilator situation. With this being the case I feel that potentially we may only really figure out what his potential for neurologic outcome is if we can get him with a tracheostomy and PEG tube and turned down the sedation and pain medication dramatically. I will await further discussion with the neurology service as to what their concept is as to his potential for neurologic recovery. Vascular Surgery Progress Note SERVICE DATE: 01/23/2018 Vascular AND Thoracic Surgery Service Pager: For questions or concerns Mon-Fri 6a-5p please page [phone]. After 5pm and on Weekends and Holidays, please page [phone] if in ICU or [phone] if on RNF. Subjective SUBJECTIVE: NAEON, mildly hypotensive requiring small amount of Levo again overnight When sedation is lowered patient becomes agitated and bites down on ETT and pressures rise on CVVHD Diet: DIET TUBE FEED - CONTIN (NO TRAY) Parenteral Nutrition - Adult Objective OBJECTIVE: Vitals: Temp (24hrs), Av.6 ?C (97.9 ?F), Min:35.7 ?C (96.3 ?F), Max:37.2 ?C (99 ?F) BP 132/57 Pulse 79 Temp 36.8 ?C (98.2 ?F) (Axillary) Resp 19 Ht 172.7 cm (5' 8) Wt 86.2 kg (190 lb 0.6 oz) SpO2 97% BMI 28.89 kg/m? O2 Therapy: Ventilator IANDO: Date 01/22/18699 - 01/23/18 0659 01/23/18699 - 01/24/18 0659 Shift 9738-2793 2192-3110 7280-2810 24 Hour Total 8102-9125 8109-5602 9776-8862 24 Hour Total I N T A K E IV 581 224 805 NS 0.9% 30 53 83 Calcium IVPB 250 250 Fentanyl Volume 33 14 47 Dexmedetomidine IV 110 47 157 NORepinephrine Volume 21 8 29 Propofol IV 37 2 39 Ampicillin/Sulbactam (Unasyn) IV 100 100 200 TPN/PPN 503 324 827 TPN 503 324 827 Shift Total 0557 155 7138 O U T P U T Drains 10 10 Negative Pressure: Output (mL) (Negative Pressure Wound Therapy 01/12/18 0749 Abdomen) 10 10 Dialysis 1452 2095 005 5226 Dialysis Output (Ultrafiltration) 1452 5218 856 7282 Shift Total 1452 0907 324 6456 Weight (kg) 89 89 86.2 86.2 86.2 86.2 86.2 86.2 MEDICATIONS Current Facility-Administered Medications: Parenteral Nutrition - Adult INTRAVENOUS ONCE TPN (1800 START) senna leaf extract 176 mg/5 mL 528 mg 15 mL OROGASTRIC BID dexmedetomidine 400 mcg in NaCl 0.9% 100 mL (PRECEDEX) 0.2- 0.7 mcg/kg/hr INTRAVENOUS CONTINUOUS carboxymethylcellulose sodium 1-2 Drop (CELLUVISC) 1-2 Drop BOTH EYES PRN polyvinyl alcohol-povidone 1.4-0.6 % 1 Drop (REFRESH) 1 Drop BOTH EYES QID PRN propofol infusion (DIPRIVAN) 0-15 mcg/kg/min (Adjusted) INTRAVENOUS CONTINUOUS hydrocortisone sodium succinate (PF) 50 mg injection (Solu- CORTEF) 50 mg INTRAVENOUS q 8 H heparin 1,000 unit/mL 4,000 Units injection 4,000 Units INTRAVENOUS 3 Times weekly with dialysis heparin 5,000 Units injection 5,000 Units SUBCUTANEOUS q 12 H ampicillin-sulbactam 3 g in NaCl 0.9% 100 mL MB+ (UNASYN) 3 g INTRAVENOUS q 6 H NaCl 0.9% 1,000 mL iv bolus 1,000 mL INTRAVENOUS PRN DIALYSIS prismaSOL BGK 4 K / 2.5 mEq Ca/Liter 5,000 mL 5,000 mL HEMODIALYSIS continuous (no dispense) prismaSOL BGK 4 K / 2.5 mEq Ca/Liter 5,000 mL 5,000 mL HEMODIALYSIS continuous (no dispense) prismaSOL BGK 4 K / 2.5 mEq Ca/Liter 5,000 mL 5,000 mL HEMODIALYSIS continuous (no dispense) dextrose 40 % 15 g 15 g ORAL PRN Or glucagon 1 mg injection (GLUCAGEN) 1 mg INTRAMUSCULAR PRN Or dextrose 50% in water 25 mL syringe 12.5 g INTRAVENOUS PRN magnesium sulfate 1 g in D5W 100 mL 1 g INTRAVENOUS PRN magnesium sulfate in water 2 g in sterile water 50 ml 2 g INTRAVENOUS PRN fentaNYL 20 mcg/mL iv infusion in NaCl 0.9% 100 mL 0-100 mcg/hr INTRAVENOUS CONTINUOUS pantoprazole 40 mg injection (PROTONIX) 40 mg INTRAVENOUS DAILY (6 AM) NORepinephrine 16 mg in D5W 250 mL (LEVOPHED) 0-30 mcg/min INTRAVENOUS CONTINUOUS Chlorhexidine Gluconate 0.12 % 15 mL (PERIDEX) 15 mL ORAL q 12 H Labs: Recent Labs 01/23/18 0435 01/22/18 2235 01/22/18 1800 01/22/18 0420 NA 139 -- 139 -- 139 K 5.0 -- 4.9 -- 4.8 CHLOR 106 -- 105 -- 106 CO2 22 -- 21 -- 20* BUN 54* -- 53* -- 49* CREAT 1.75* -- 1.78* -- 1.80* GLUC 234* -- 216* -- 232* ANION 16 -- -- -- 18* CA 7.4* -- 7.6* -- 7.2* MG 2.8* -- 2.8* < > 2.9* P 4.7 -- 4.4 -- 4.4 ALB 1.4* -- 1.5* -- -- AST 127* -- -- -- -- ALT 87* -- -- -- -- ALKPHOS 344* -- -- -- -- TBILI 7.2* -- -- -- -- WBC 15.80* -- 19.08* -- 17.33* HB 8.0* -- 8.8* -- 8.1* HCT 24.0* -- 26.1* -- 23.7* PLT 130* -- 135* -- 109* PH 7.399 7.437 7.418 < > 7.407 PCO2 35.3* 31.4* 32.4* < > 33.5* PO2 204.9* 144.4* 101.4* < > 115.9* BE -3.1 -3.0 -3.4 < > -3.6 < > = values in this interval not displayed. Exam: GENERAL: No distress NEURO: Sedated, not following commands HEENT: normocephalic, atraumatic, pupils reactive, +icterus LUNGS: Unlabored breathing O2 Therapy: Ventilator CARDIAC: Regular rate and rhythm as above, hypotensive requiring Levo @ 6 ABDOMEN: Soft, non-tender, non-distended, VAC and retention sutures intact EXTREMITIES: MAK, No deformities, + edema, palpable pulses SKIN: Skin texture, turgor normal, No rashes or lesions, +jaundice ASSESSMENT AND PLAN: Active Hospital Problems Diagnosis Date Noted - Ruptured abdominal aortic aneurysm (AAA) ([facility]) 01/12/2018 - Obesity, Class I, BMI 30-34.9 01/16/2018 - Encephalopathy 01/13/2018 - DIC (disseminated intravascular coagulation) ([facility]) 01/12/2018 - Hemorrhagic shock ([facility]) 01/12/2018 - Acute respiratory failure ([facility]) 01/12/2018 - Cardiac arrest ([facility]) 01/12/2018 - Hypernatremia 01/12/2018 - Hypokalemia 01/12/2018 - Hypomagnesemia 01/12/2018 - Hypophosphatemia 01/12/2018 - Hyperchloremia 01/12/2018 - AAA (abdominal aortic aneurysm, ruptured) ([facility]) 01/12/2018 Overview Note: Added automatically from request for surgery [id number] 77 year old male with Ruptured AAA s/p Emergent Repair, takeback washout, repair of serosal tears x2, on 01/12, hemorrhagic shock, acute resp failure with pulm edema, TERENCE, SVT, s/p Third Look Laparotomy and?washout on 01/14, fourth look, washout, vac change on 01/16, Partial fascial closure on 01/19 ? - Vent mgmt per MICU - NPO/TPN --> we would prefer TFs at this stage, nurse held them this weekend as family unsure if they want him to have TFs - Wean Levo and sedation as able - Acute blood loss and dilutional anemia and thrombocytopenia - monitor, transfuse prn - TERENCE -->?CVVHD per?Nephro, diurese as tolerates - CXR stable and improving bilaterally by my read - Unasyn empirically for possible Asp PNA per MICU - Hypocalcemia?- replacing - cont scrotal support - Cont WV - Hyperbilirubinemia and Transaminitis --> trend LFTs, check Abd US - Solucortef 50mg q8h per MICU - Leukocytosis - reactive and steroid related, afebrile, monitor Overall goals: - now with resp status stabilized and no additional trips to OR planned will continue to wean sedation in order to get accurate Neuro exam, Neuro consulted - discuss goals of care - consider Trach/PEG ?? Assessment and plan discussed with attending: Dr. Paniagua SIGNATURE: Dionicio Stevens MD PATIENT NAME: Naveen Akins DATE: January 23, 2018 TIME: 6:23 AM Vascular AND Thoracic Surgery Service Pager: For questions or concerns Mon-Tue 6a-5p please page [phone]. After 5pm and on Weekends and Holidays, please page [phone] if in ICU or [phone] if on RNF. CHEST 1 VIEW Observed: 01/23/2018 Status: F Source: [facility] 5:41 AM HEALTH SYSTEM REPOSITORY Performed at [facility] APPROVED BY: Yajaira Veronica MD EXAM TITLE: CHEST 1 VIEW DATE: 01/23/2018 05:36 INDICATION: Respiratory failure COMPARISON: 01/22/2018 FINDINGS: The ETT, NGT, and bilateral central venous catheters are stable. Since the previous exam, there has been slight improvement in bilateral infiltrates. Stable small left pleural effusion. Heart is not enlarged. IMPRESSION: Slight improvement in bilateral infiltrates. BASIC PANEL Collected: 01/23/2018 Status: F Source: [facility] 4:35 HEALTH SYSTEM REPOSITORY TYPE CODE TESTS RESULT OUT OF REFERENCE UNITS RANGE LAB NA(LOINC) 136-145 mEq/L Sodium Blood 139 LAB K(LOINC) 3.5-5.1 mEq/L Potassium Blood 5.0 LAB CL(LOINC) 98-107 mEq/L Chloride Blood 106 LAB CO2(LOINC) 21-32 mEq/L CO2 Blood 22 LAB GLU(LOINC) 70-99 mg/dL Glucose High Blood 234 LAB BUN(LOINC) 7-18 mg/dL BUN High Blood 54 LAB CREA(LOINC 0.67-1.17 mg/dL ) High Creatinine Blood 1.75 LAB CA(LOINC) 8.5-10.1 mg/dL Low Calcium Blood 7.4 LAB ANGAP(LOIN 8-16 C) Anion Gap 16 Performed By: #### P8 #### [place] [address] HEPATIC PANEL Collected: 01/23/2018 Status: F Source: [address] [facility] REPOSITORY TYPE CODE TESTS RESULT OUT OF REFERENCE UNITS RANGE LAB ALB(LOINC) 3.4-5.0 g/dL Low Albumin Blood 1.4 LAB ALT(LOINC) 12-78 U/L ALT-SGPT High Blood 87 LAB ALKP(LOINC 46-116 U/L ) Alk High Phosphatase 344 LAB TP(LOINC) 6.4-8.2 g/dL Low Total Protein 5.5 LAB AST(LOINC) 9-37 U/L AST-SGOT High Blood 127 LAB BILIT(LOIN 0.2-1.0 mg/dL C) Total High Bilirubin 7.2 LAB DBIL(LOINC 0.00-0.20 mg/dL ) Direct High Bilirubin 6.44 Performed By: #### HEPAP #### [place] [address] HEMOGRAM/DIFF Collected: 01/23/2018 Status: F Source: [place] [id number] PENDING SALE TO [facility] REPOSITORY TYPE CODE TESTS RESULT OUT OF REFERENCE UNITS RANGE LAB WBC(LOINC) 4.23-9.07 thou/cmm WBC High 15.80 LAB RBC(LOINC) 4.63-6.08 mil/cmm Low RBC 2.78 LAB HGB(LOINC) 13.7-17.5 g/dL Low Hgb 8.0 LAB HCT(LOINC) 40.1-51.0 % Low Hct 24.0 LAB MCV(LOINC) 83.2-95.6 fl MCV 86.3 LAB MCH(LOINC) 25.7-32.2 pg MCH 28.8 LAB MCHC(LOINC 32.3-36.5 % ) MCHC 33.3 LAB RDW(LOINC) 11.6-14.4 % RDW High 21.4 LAB RDWSD(LOIN 36.1-45.8 fl C) RDW SD High 61.3 LAB PLT(LOINC) 141-365 thou/cmm Low Platelet 130 LAB MPV(LOINC) 8.7-12.0 fl MPV High 13.4 LAB NRBCR(LOIN 0.0-0.2 % C) High Nucleated RBC % 0.3 LAB SEG(LOINC) % Seg Neutrophil 88.9 LAB IGRE(LOINC % ) Immature Grans 5.80 LAB LYMPH(LOIN % C) Lymphocyte 3.4 LAB MNO(LOINC) % Monocyte 1.8 LAB EOSIN(LOIN % C) Eosinophil 0.0 LAB BASO(LOINC % ) Basophil 0.1 LAB NRBCA(LOIN 0.00-0.01 thou/cmm C) High Nucleated RBC 0.04 Absolute LAB SEGN(LOINC 1.78-5.38 thou/cmm ) Abs. High Neut (ANC) 14.05 LAB IGAB(LOINC 0.00-0.05 thou/cmm ) Abs High Immature Grans 0.92 LAB LYMN(LOINC 0.84-2.85 thou/cmm ) Low Abs. Lymph 0.54 LAB MONON(LOIN 0.30-0.82 thou/cmm C) Low Abs. Rincon 0.28 LAB EOSN(LOINC 0.04-0.54 thou/cmm ) Low Abs. Eosin 0.00 LAB BASON(LOIN 0.01-0.08 thou/cmm C) Abs. Baso 0.02 Performed By: #### CBCD1 #### [place] [address] ALLIED HEALTH Observed: 01/22/2018 Status: COMPLETED Source: [place] 10:55 PM CLINIC OTHER CAMPUS REPOSITORY HNO ID: [id number] Author: Gladys Salas) Chaplain Zeb Service: Spiritual Care Author Type: Type: Allied Health Filed: 01/23/2018 5:39 AM Note Text: SPIRITUALCARE Spiritual Care Visit- Brief Note Name: Naveen Akins Date: January 23, 2018 Notes: Patient's family in 3rd floor waiting room and requested prayer. Patient's mother, sisters and son. Follow up needed. Envelope Stamping Machine Operator Signature: Chaplain Suman To contact the Spiritual Care Department: Please call [phone] or Page the On-Call Envelope Stamping Machine Operator at pager [phone] Thank you for the opportunity to be of service. This is an electronically created document. IF PRINTED, PLEASE DO NOT REMOVE FROM THE CHART OR MODIFY PRINTED COPY. BLOOD GAS ARTERIAL Collected: 01/22/2018 Status: F Source: [facility] 10:35 PM HEALTH SYSTEM REPOSITORY TYPE CODE TESTS RESULT OUT OF REFERENCE UNITS RANGE LAB FIO2(LOINC % ) FIO2 45 LAB TEMPA(LOIN C) Temperature 37.0 LAB PH(LOINC) 7.350-7.450 pH Arterial 7.437 LAB PCO2(LOINC 36.0-46.0 mm Hg ) Low PCO2 Arterial 31.4 LAB PO2(LOINC) 85.0-96.0 mm Hg PO2 High Arterial 144.4 LAB HCO3A(LOIN 22.0-26.0 mEq/L C) Low HCO3- 20.7 LAB O2%A(LOINC 95.0-98.0 % ) O2% Sat High Arterial 98.9 LAB BASEX(LOIN -2.5 to 2.5 mEq/L C) Base Excess -3.0 Performed By: #### ABG #### [place] [address] BLOOD GAS ARTERIAL Collected: 01/22/2018 Status: F Source: [facility] 6:00 PM HEALTH SYSTEM REPOSITORY TYPE CODE TESTS RESULT OUT OF REFERENCE UNITS RANGE LAB TEMPA(LOIN C) Temperature 37.0 LAB PH(LOINC) 7.350-7.450 pH Arterial 7.418 LAB PCO2(LOINC 36.0-46.0 mm Hg ) Low PCO2 Arterial 32.4 LAB PO2(LOINC) 85.0-96.0 mm Hg PO2 High Arterial 101.4 LAB HCO3A(LOIN 22.0-26.0 mEq/L C) Low HCO3- 20.5 LAB O2%A(LOINC 95.0-98.0 % ) O2% Sat Arterial 97.7 LAB BASEX(LOIN -2.5 to 2.5 mEq/L C) Base Excess -3.4 LAB FIO2(LOINC % ) FIO2 75.0 Performed By: #### ABG #### [facility] [address] [place] [address] RENAL PANEL Collected: 01/22/2018 Status: F Source: [facility] 6:00 HEALTH SYSTEM REPOSITORY TYPE CODE TESTS RESULT OUT OF REFERENCE UNITS RANGE LAB NA(LOINC) 136-145 mEq/L Sodium Blood 139 LAB K(LOINC) 3.5-5.1 mEq/L Potassium Blood 4.9 LAB CL(LOINC) 98-107 mEq/L Chloride Blood 105 LAB CO2(LOINC) 21-32 mEq/L CO2 Blood 21 LAB GLU(LOINC) 70-99 mg/dL Glucose High Blood 216 LAB BUN(LOINC) 7-18 mg/dL BUN High Blood 53 LAB CREA(LOINC 0.67-1.17 mg/dL ) High Creatinine Blood 1.78 LAB CA(LOINC) 8.5-10.1 mg/dL Low Calcium Blood 7.6 LAB ALB(LOINC) 3.4-5.0 g/dL Low Albumin Blood 1.5 LAB PHOS(LOINC 2.5-4.9 mg/dL ) Phosphorus Blood 4.4 Performed By: #### RENAL #### [facility] [address] [place] [address] MAGNESIUM BLOOD Collected: 01/22/2018 Status: F Source: [facility] 6:00 HEALTH SYSTEM REPOSITORY TYPE CODE TESTS RESULT OUT OF REFERENCE UNITS RANGE LAB MAG(LOINC) 1.6-2.6 mg/dL High Magnesium Blood 2.8 Performed By: #### MAG #### [facility] [address] [place] [id number] HEMOGRAM Collected: 01/22/2018 Status: F Source: [facility] 6:00 PM HEALTH SYSTEM REPOSITORY TYPE CODE TESTS RESULT OUT OF REFERENCE UNITS RANGE LAB WBC(LOINC) 4.23-9.07 thou/cmm WBC High 19.08 LAB RBC(LOINC) 4.63-6.08 mil/cmm Low RBC 3.07 LAB HGB(LOINC) 13.7-17.5 g/dL Low Hgb 8.8 LAB HCT(LOINC) 40.1-51.0 % Low Hct 26.1 LAB MCV(LOINC) 83.2-95.6 fl MCV 85.0 LAB MCH(LOINC) 25.7-32.2 pg MCH 28.7 LAB MCHC(LOINC 32.3-36.5 % ) MCHC 33.7 LAB RDW(LOINC) 11.6-14.4 % RDW High 21.2 LAB RDWSD(LOIN 36.1-45.8 fl C) RDW High SD 58.6 LAB PLT(LOINC) 141-365 thou/cmm Low Platelet 135 LAB MPV(LOINC) 8.7-12.0 fl MPV High 12.5 LAB NRBCR(LOIN 0.0-0.2 % C) High Nucleated RBC % 0.6 LAB NRBCA(LOIN 0.00-0.01 thou/cmm C) High Nucleated RBC 0.11 Absolute Performed By: #### CBC1 #### [facility] [address] [place] [id number] PROGRESS Observed: 01/22/2018 Status: COMPLETED Source: [place] 4:16 PM CLINIC OTHER CAMPUS REPOSITORY HNO ID: [id number] Author: Costa Miguel Service: Gastroenterology Surgery Author Type: Physician Type: Progress Notes Filed: 01/22/2018 4:17 PM Note Text: Wound without issue. Further care per primary service. Costa Miguel MD, FACS, [facility] BLOOD GAS ARTERIAL Collected: 01/22/2018 Status: F Source: [facility] 1:30 PM HEALTH SYSTEM REPOSITORY TYPE CODE TESTS RESULT OUT OF REFERENCE UNITS RANGE LAB FIO2(LOINC % ) FIO2 75 LAB TEMPA(LOIN C) Temperature 37.0 LAB PH(LOINC) 7.350-7.450 pH Arterial 7.419 LAB PCO2(LOINC 36.0-46.0 mm Hg ) Low PCO2 Arterial 33.1 LAB PO2(LOINC) 85.0-96.0 mm Hg PO2 High Arterial 105.6 LAB HCO3A(LOIN 22.0-26.0 mEq/L C) Low HCO3- 20.9 LAB O2%A(LOINC 95.0-98.0 % ) O2% Sat Arterial 97.8 LAB BASEX(LOIN -2.5 to 2.5 mEq/L C) Base Excess -3.1 Performed By: #### ABG #### [place] [address] MAGNESIUM BLOOD Collected: 01/22/2018 Status: F Source: [facility] 1:30 PM HEALTH SYSTEM REPOSITORY TYPE CODE TESTS RESULT OUT OF REFERENCE UNITS RANGE LAB MAG(LOINC) 1.6-2.6 mg/dL High Magnesium Blood 2.8 Performed By: #### MAG #### [place] [address] PROGRESS Observed: 01/22/2018 Status: COMPLETED Source: [place] 11:07 AM CLINIC OTHER CAMPUS REPOSITORY O ID: [id number] Author: Herman Sutton Service: Critical Care Author Type: Physician Type: Progress Notes Filed: 01/22/2018 11:16 AM Note Text: MICU - PROGRESS NOTE SERVICE DATE: 01/22/2018 SERVICE TIME: 11:07 AM Admission Date: 01/12/2018 AGE: [id number] year old LOS: 10 days Subjective REASON FOR ICU ADMISSION: Patient critically ill, intubated on mechanical ventilation now on 45% Fio2 and 8 of PEEP after right sided thoracentesis On levophed low dose CRRT resumed and fluid is pulled at rate of 100cc/hr Still encephalopathic and more agitated when weaning off sedation S/p abdominal closure on 01/22/18 Daughter at the bedside ? Objective PROBLEMS: ACTIVE PROBLEM LIST Gallstone Pancreatitis Ruptured Abdominal Aortic Aneurysm (Aaa) (Hcc) Dic (Disseminated Intravascular Coagulation) (Hcc) Hemorrhagic Shock (Hcc) Acute Respiratory Failure (Hcc) Cardiac Arrest (Hcc) Hypernatremia Hypokalemia Hypomagnesemia Hypophosphatemia Hyperchloremia Encephalopathy Aaa (Abdominal Aortic Aneurysm, Ruptured) ([facility]) Obesity, Class I, Bmi 30-34.9 PAST MEDICAL HISTORY Diagnosis Date - DIC (disseminated intravascular coagulation) (HCC) 01/12/2018 PAST SURGICAL HISTORY Procedure Laterality Date - LAP CHOLECYSTECT/CHOLANGIOGRAPHY 05-28-09 - REPAIR UMBILICAL NATAN,5+Y/O,REDUC 05-28-09 Social History Marital status: Spouse name: Shelly Years of education: 11 Number of children: 4 Occupational History 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 BP 132/57 Pulse 76 Temp (Src) 96.8 (Axillary) Resp 21 Ht 5' 8 (1.73m) Wt 196 lb 3.4 oz (89.0kg) SpO2 97% BMI 29.84 kg/(m2). Temp (24hrs), Av.8 ?C (96.5 ?F), Min:34.7 ?C (94.5 ?F), Max:36.5 ?C (97.7 ?F) NET FLUID BALANCE Intake/Output Summary (Last 24 hours) at 01/22/18 1107 Last data filed at 01/22/18 1000 Gross per 24 hour Intake 1587.3 ml Output 2284 ml Net -696.7 ml MEDICATIONS Current Facility-Administered Medications: calcium gluconate 4 g in NaCl 0.9% 250 mL 4 g INTRAVENOUS ONCE Parenteral Nutrition - Adult INTRAVENOUS ONCE TPN (1800 START) senna leaf extract 176 mg/5 mL 528 mg 15 mL OROGASTRIC BID dexmedetomidine 400 mcg in NaCl 0.9% 100 mL (PRECEDEX) 0.2- 0.7 mcg/kg/hr INTRAVENOUS CONTINUOUS carboxymethylcellulose sodium 1-2 Drop (CELLUVISC) 1-2 Drop BOTH EYES PRN polyvinyl alcohol-povidone 1.4-0.6 % 1 Drop (REFRESH) 1 Drop BOTH EYES QID PRN propofol infusion (DIPRIVAN) 0-15 mcg/kg/min (Adjusted) INTRAVENOUS CONTINUOUS hydrocortisone sodium succinate (PF) 50 mg injection (Solu- CORTEF) 50 mg INTRAVENOUS q 8 H heparin 1,000 unit/mL 4,000 Units injection 4,000 Units INTRAVENOUS 3 Times weekly with dialysis heparin 5,000 Units injection 5,000 Units SUBCUTANEOUS q 12 H ampicillin-sulbactam 3 g in NaCl 0.9% 100 mL MB+ (UNASYN) 3 g INTRAVENOUS q 6 H NaCl 0.9% 1,000 mL iv bolus 1,000 mL INTRAVENOUS PRN DIALYSIS prismaSOL BGK 4 K / 2.5 mEq Ca/Liter 5,000 mL 5,000 mL HEMODIALYSIS continuous (no dispense) prismaSOL BGK 4 K / 2.5 mEq Ca/Liter 5,000 mL 5,000 mL HEMODIALYSIS continuous (no dispense) prismaSOL BGK 4 K / 2.5 mEq Ca/Liter 5,000 mL 5,000 mL HEMODIALYSIS continuous (no dispense) dextrose 40 % 15 g 15 g ORAL PRN Or glucagon 1 mg injection (GLUCAGEN) 1 mg INTRAMUSCULAR PRN Or dextrose 50% in water 25 mL syringe 12.5 g INTRAVENOUS PRN magnesium sulfate 1 g in D5W 100 mL 1 g INTRAVENOUS PRN magnesium sulfate in water 2 g in sterile water 50 ml 2 g INTRAVENOUS PRN fentaNYL 20 mcg/mL iv infusion in NaCl 0.9% 100 mL 0-100 mcg/hr INTRAVENOUS CONTINUOUS pantoprazole 40 mg injection (PROTONIX) 40 mg INTRAVENOUS DAILY (6 AM) NORepinephrine 16 mg in D5W 250 mL (LEVOPHED) 0-30 mcg/min INTRAVENOUS CONTINUOUS Chlorhexidine Gluconate 0.12 % 15 mL (PERIDEX) 15 mL ORAL q 12 H Lines, Drains, and Airways Line Dialysis / Apheresis Double Lumen 01/13/18 1136 Left Neck 8 days Arterial Line 01/19/18 0840 Arterial Line Right Radial 3 days Central Line Quadruple Lumen 01/19/18 1056 Right Neck 3 days Drain GI Feed/Drain 01/12/18 0100 10 days Drain/Tube 01/19/18 1015 Midline Abdomen 3 days Airway Airway Endotracheal Tube 01/12/18 1138 9 days PHYSICAL EXAM PERFORMED: General: heavily sedated intubated Cardiovascular:?Regular rhythm Respiratory:?tachypnea better on 45% and 8 PEEP Abdomen: Soft, wound vac Extremities:?Edema-?No??? Neurologic:?sedated Respiratory/Nursing Documentation: O2 Therapy: Ventilator (01/22/18942) Invasive Ventilator Mode: Pressure Regulated Volume Control (01/22/18942) Set Ventilator Respiratory Rate (BPM): 20 (01/22/18942) Total Respiratory Rate (BPM): 21 (01/22/18942) Tidal Volume Set (mL): 480 (01/22/18942) Exhaled Tidal Volume (mL): 729 (01/22/18942) Minute Volume (L): 18.2 (01/22/18942) Peak Inspiratory Pressure (cm H2O): 10 (01/22/18942) PEEP/CPAP (cm H2O): 8 (01/22/18942) HEMODYNAMIC DATA: Reviewed NUTRITION: Enteral Feeds: No TPN DATA: Diagnostic tests reviewed for today's visit, films/specimens were personally reviewed by me: Most recent labs and imaging results. LABS: Recent Labs 01/22/18 04201/20/18 0345 WBC 17.33* < > 14.99* RBC 2.77* < > 3.18* HB 8.1* < > 9.4* HCT 23.7* < > 27.1* MCV 85.6 < > 85.2 PLT 109* < > 97* GLUC 232* < > 186* BUN 49* < > 36* CREAT 1.80* < > 1.84* NA 139 < > 135* K 4.8 < > 4.5 CHLOR 106 < > 104 CO2 20* < > 21 TPROT -- -- 4.9* ALB -- -- 1.5* CA 7.2* < > 6.8* ALKPHOS -- -- 190* TBILI -- -- 6.0* AST -- -- 130* ALT -- -- 57 MG 2.9* < > 2.6 < > = values in this interval not displayed. ABG: Recent Labs 01/22/18 0420 01/21/18 2224 01/21/18 1610 PH 7.407 7.405 7.392 PO2 115.9* 141.5* 76.1* PCO2 33.5* 33.0* 31.7* CXR with left pleural effusion and LLL atelectasis Assessment/Plan Acute Hypoxic Respiratory Failure on mechanical ventilation Volume overload Large bilateral effusion s/p right side thoracentesis with improved oxygenation after Ruptured AAA s/p surgical repair s/p Cardiac Arrest Encephalopathy??? TERENCE on CKD?-ATN - On CRRT Sinus Tachycardia Thrombocytopenia SVT - Resolved MMP ? PLANS: ? S/p abdominal wound closure Continue?mechanical ventilation, no SBT Wean off oxygen as tolerated CRRT to help removing fluid, goal 100cc/hr spoke with Dr Shandra Wyattphed Fentanyl ?Drip for pain Wean off propofol RAMIN 0-2 HD better with hydrocortisone ABx to completed by tomorrow for possible aspiration PNA EEG impressive for severe encephalopathy, no evidence of epileptiform activity/seizures AAA management/post-operative care per vascular surgery Continue w/ amiodarone gtt, monitor rhythm. ?No further runs of SVT Cardiology consulted, appreciate recs Continue TPN SCDs/PPI/ Heparin SQ per primary team Discussed with daughter at the bedside in length, she understands his severe illness Overall prognosis is poor, patient with multiorgan failure, TERENCE on CRRT and encephalopathic and difficult wean off sedation, Goals of care are discussed primarly with Dr Paniagua? ? Palliative care/trach next week ? Critical Care Documentation:?The patient has the following organ/system impairment(s): ?Circulatory shock, Complex life-threatening ?medical problem(s) and Respiratory failure (Acute, with Hypoxemia) ? ? This patient has a high probability of sudden, clinically significant deterioration, which requires the highest level of physician preparedness to intervene urgently. ?I managed/supervised life or organ supporting interventions that required frequent physician assessment. ?I devoted my full attention to the direct care of this patient for the amount of time indicated below. ?Time I spent with family or surrogate(s) is included only if the patient was incapable of providing the necessary information or participating in medical decision making. ?Time devoted to teaching is not included. ? Critical Care Time devoted to this patient is ?32?minutes SIGNATURE: Herman Sutton MD PATIENT NAME: Naveen Akins DATE: January 22, 2018 TIME: 11:07 AM PROGRESS Observed: 01/22/2018 Status: COMPLETED Source: [place] 9:35 AM CLINIC OTHER CAMPUS REPOSITORY HNO ID: [id number] Author: Vicky Devi MD Service: Nephrology Author Type: Physician Type: Progress Notes Filed: 01/22/2018 9:38 AM Note Text: Subjective. Intubated with FIO2 40%. Sedated. On levophed 4 mcg/min On TPN 01/22/18 0600 01/22/18 0645 01/22/18 0700 01/22/18 0800 BP: Pulse: 75 74 76 Resp: 20 19 21 Temp: TempSrc: SpO2: 97% 99% 97% Weight: 89 kg (196 lb 3.4 oz) Height: Intubated. Sedated. Not responsive No JVD Heart - S1 S2 RRR Lungs - b/l air entry. CTA Abdomen - open wound with draining tube LE - + edema, No cyanosis Lab: Recent Labs 01/22/18 0420 01/21/18 1609 01/21/18 0430 01/20/18 1620 01/20/18 0345 WBC 17.33* 19.56* 19.46* 19.70* < > 14.99* RBC 2.77* 3.04* 3.12* 3.11* < > 3.18* HB 8.1* 8.8* 9.1* 9.0* < > 9.4* HCT 23.7* 26.2* 26.7* 27.1* < > 27.1* PLT 109* 114* 100* 94* < > 97* MCV 85.6 86.2 85.6 87.1 < > 85.2 MCH 29.2 28.9 29.2 28.9 < > 29.6 MPV -- 13.5* -- 12.3* -- 12.5* RDW 20.4* 20.1* 19.9* 19.8* < > 19.1* < > = values in this interval not displayed. Recent Labs 01/22/18 0420 01/21/18 0430 01/20/18 0345 01/18/18 1000 01/14/18 1555 GLUC 232* 209* 186* < > -- < > 78 NA 139 136 135* < > -- < > 142 K 4.8 4.4 4.5 < > -- < > 4.5 CHLOR 106 103 104 < > -- < > 111* CO2 20* 23 21 < > -- < > 22 CREAT 1.80* 1.85* 1.84* < > -- < > 2.10* BUN 49* 42* 36* < > -- < > 17 ANION 18* 14 15 < > -- < > 14 CA 7.2* 7.1* 6.8* < > -- < > 6.4* TPROT -- -- 4.9* -- 4.8* -- 3.7* ALB -- -- 1.5* -- 1.7* -- 1.7* TBILI -- -- 6.0* -- 4.3* -- 2.9* ALKPHOS -- -- 190* -- 124* -- 67 AST -- -- 130* -- 65* -- 69* ALT -- -- 57 -- 18 -- 13 < > = values in this interval not displayed. Assessment/ Plan 1. Acute kidney injury on chronic kidney disease stage 3. Baseline SCr is 1.36 mg/dL on 11/14/17. CKD is likely due to nephrosclerosis related to PAD. TERENCE is 2/2 ischemic ATN from shock. Patient is CRRT dependent for fluid and metabolic support Anuric. No recovery of kidney function I will continue the same CVVHDF parameters with net UF 100 cc/hour Electrolytes replacement as needed as per ICU protocol ? 2. Shock. Likely hemorrhagic shock-massive blood loss from ruptured AAA +/- adrenal insufficiency. Continue hydrocortisone. On levophed ? 5. Ruptured AAA. s/p repair 01/12/18 and wound closure on 01/21. Management as per vascular surgery. ? 6. Acute hypoxic respiratory failure. Ventilator dependent. Vent management as per ICU. O>I with CRRT UF. Will d/w Dr. Herman Devi MD CHEST 1 VIEW Observed: 01/22/2018 Status: F Source: [facility] 6:29 AM HEALTH SYSTEM REPOSITORY Performed at [facility] APPROVED BY: Matt Geiger MD EXAM TITLE: CHEST 1 VIEW DATE: 01/22/2018 05:47 INDICATION: Intubated. COMPARISON: 01/21/2018 at 05 10. Portable frontal view of the chest shows tip of endotracheal tube at the level of the aortic arch. Enteric tube passing into the stomach. Right internal jugular central line with tip at the right atrium. Left internal jugular central line with tip in the midsuperior vena cava. Heart size normal. Aorta is tortuous. Persistent infiltrate in the left lung and at the right perihilar region. There has been slight improvement in aeration in the left lung. Probable small left-sided effusion. IMPRESSION: Slight improvement in aeration in the left chest. Persistent bilateral infiltrates consistent with edema versus pneumonia. PROGRESS Observed: 01/22/2018 Status: COMPLETED Source: [place] 6:28 AM [facility] REPOSITORY [facility] ID: [id number] Author: Dionicio (Edenilson) Stevens Service: Vascular Surgery Author Type: Resident Type: Progress Notes Filed: 01/22/2018 8:19 AM Note Text: Attestation signed by Марина De Anda at 01/22/2018 10:32 AM [facility] STAFF PHYSICIAN NOTE OF PERSONAL INVOLVEMENT IN CARE IMPRESSION: AAA PLAN: fascial closure in OR yesterday. Per report, family did not want tube feeds started last night, however there has been discussion about trach/PEG? Will need neuro eval. I have reviewed the documentation above obtained and documented by the Resident and have reviewed comorbidities and relevant tests. I have personally performed a face to face assessment of the patient and I have discussed the case and management of the patient's care. Counseling (Inpatient): I personally spent 20 total minutes involved in the care of this patient. Greater than 50% of the time was spent counseling and/or coordinating care for the patient, the nature of which is noted above. STAFF PHYSICIAN:: Марина De Anda MD DATE of SERVICE: 01/22/2018 TIME of SERVICE: 10:30 AM Vascular Surgery Progress Note SERVICE DATE: 01/22/2018 Vascular AND Thoracic Surgery Service Pager: For questions or concerns Mon-Fri 6a-5p please page [phone]. After 5pm and on Weekends and Holidays, please page [phone] if in ICU or [phone] if on RNF. Subjective SUBJECTIVE: Mild hypotension overnight requiring Levo turned back on Diet: Parenteral Nutrition - Adult DIET TUBE FEED - CONTIN (NO TRAY) Objective OBJECTIVE: Vitals: Temp (24hrs), Av.9 ?C (96.6 ?F), Min:34.7 ?C (94.5 ?F), Max:36.5 ?C (97.7 ?F) BP 132/57 Pulse 75 Temp 36 ?C (96.8 ?F) (Axillary) Resp 20 Ht 172.7 cm (5' 8) Wt 94.1 kg (207 lb 7.3 oz) SpO2 97% BMI 31.54 kg/m? O2 Therapy: Ventilator IANDO: Date 01/21/18699 - 01/22/1859 01/22/18 07 - 01/23/18 0659 Shift 6994-0397 8286-6217 1423-4293 24 Hour Total 7035-7693 6132-6387 9470-5776 24 Hour Total I N T A K E IV 43 597 587.3 1227.3 NS 0.9% 13 13 Fentanyl Volume 6 50 115.3 171.3 Amiodarone 200 200 Dexmedetomidine IV 8 67 76 151 NORepinephrine Volume 8 180 124 312 Propofol IV 8 100 72 180 Ampicillin/Sulbactam (Unasyn) IV 200 200 TPN/PPN 62 62 TPN 62 62 Shift Total 105 597 587.3 1289.3 O U T P U T Urine Urine Incontinence/Not Saved 1 x 1 x Tubes 105 105 Drain/Tube Output (Drain/Tube 01/19/18 1015 Midline Abdomen) 75 75 Drain/Tube Output ([REMOVED] Drain/Tube 01/12/18 Fecal Management System 01/21/18 0900) 0 0 Output (GI Feed/Drain 01/12/18 0100) 30 30 Dialysis 1769 5314 782 0802 Dialysis Output (Ultrafiltration) 1769 0426 828 7059 Shift Total 1874 0451 863 3382 Weight (kg) 94.1 94.1 94.1 94.1 94.1 94.1 94.1 94.1 MEDICATIONS Current Facility-Administered Medications: calcium gluconate 4 g in NaCl 0.9% 250 mL 4 g INTRAVENOUS ONCE Parenteral Nutrition - Adult INTRAVENOUS ONCE TPN (1800 START) senna leaf extract 176 mg/5 mL 528 mg 15 mL OROGASTRIC BID dexmedetomidine 400 mcg in NaCl 0.9% 100 mL (PRECEDEX) 0.2- 0.7 mcg/kg/hr INTRAVENOUS CONTINUOUS carboxymethylcellulose sodium 1-2 Drop (CELLUVISC) 1-2 Drop BOTH EYES PRN polyvinyl alcohol-povidone 1.4-0.6 % 1 Drop (REFRESH) 1 Drop BOTH EYES QID PRN propofol infusion (DIPRIVAN) 0-15 mcg/kg/min (Adjusted) INTRAVENOUS CONTINUOUS hydrocortisone sodium succinate (PF) 50 mg injection (Solu- CORTEF) 50 mg INTRAVENOUS q 8 H heparin 1,000 unit/mL 4,000 Units injection 4,000 Units INTRAVENOUS 3 Times weekly with dialysis heparin 5,000 Units injection 5,000 Units SUBCUTANEOUS q 12 H ampicillin-sulbactam 3 g in NaCl 0.9% 100 mL MB+ (UNASYN) 3 g INTRAVENOUS q 6 H NaCl 0.9% 1,000 mL iv bolus 1,000 mL INTRAVENOUS PRN DIALYSIS prismaSOL BGK 4 K / 2.5 mEq Ca/Liter 5,000 mL 5,000 mL HEMODIALYSIS continuous (no dispense) prismaSOL BGK 4 K / 2.5 mEq Ca/Liter 5,000 mL 5,000 mL HEMODIALYSIS continuous (no dispense) prismaSOL BGK 4 K / 2.5 mEq Ca/Liter 5,000 mL 5,000 mL HEMODIALYSIS continuous (no dispense) dextrose 40 % 15 g 15 g ORAL PRN Or glucagon 1 mg injection (GLUCAGEN) 1 mg INTRAMUSCULAR PRN Or dextrose 50% in water 25 mL syringe 12.5 g INTRAVENOUS PRN magnesium sulfate 1 g in D5W 100 mL 1 g INTRAVENOUS PRN magnesium sulfate in water 2 g in sterile water 50 ml 2 g INTRAVENOUS PRN fentaNYL 20 mcg/mL iv infusion in NaCl 0.9% 100 mL 0-100 mcg/hr INTRAVENOUS CONTINUOUS pantoprazole 40 mg injection (PROTONIX) 40 mg INTRAVENOUS DAILY (6 AM) NORepinephrine 16 mg in D5W 250 mL (LEVOPHED) 0-30 mcg/min INTRAVENOUS CONTINUOUS Chlorhexidine Gluconate 0.12 % 15 mL (PERIDEX) 15 mL ORAL q 12 H Labs: Recent Labs 01/22/18 0420 01/21/18 2224 01/21/18 1609 01/21/18 0430 01/20/18 0345 NA 139 -- -- -- 136 -- 135* K 4.8 -- -- -- 4.4 -- 4.5 CHLOR 106 -- -- -- 103 -- 104 CO2 20* -- -- -- 23 -- 21 BUN 49* -- -- -- 42* -- 36* CREAT 1.80* -- -- -- 1.85* -- 1.84* GLUC 232* -- -- -- 209* -- 186* ANION 18* -- -- -- 14 -- 15 CA 7.2* -- -- -- 7.1* -- 6.8* MG 2.9* -- -- -- 2.7* -- 2.6 P 4.4 -- -- -- 4.0 -- 5.2* ALB -- -- -- -- -- -- 1.5* AST -- -- -- -- -- -- 130* ALT -- -- -- -- -- -- 57 ALKPHOS -- -- -- -- -- -- 190* TBILI -- -- -- -- -- -- 6.0* WBC 17.33* -- -- 19.56* 19.46* < > 14.99* HB 8.1* -- -- 8.8* 9.1* < > 9.4* HCT 23.7* -- -- 26.2* 26.7* < > 27.1* PLT 109* -- -- 114* 100* < > 97* PH 7.407 7.405 < > -- 7.424 < > 7.405 PCO2 33.5* 33.0* < > -- 31.9* < > 33.0* PO2 115.9* 141.5* < > -- 89.8 < > 65.4* BE -3.6 -4.0 < > -- -3.3 < > -3.9 < > = values in this interval not displayed. Exam: GENERAL: No distress NEURO: pupils reactive, not following commands, withdrawing and opening eyes to pain HEENT: normocephalic, atraumatic, +scleral icterus LUNGS: Unlabored Breathing on?Ventilator CARDIAC: Regular rate and rhythm as above, Levo @ 5 ABDOMEN: Soft, ND, NT, no PS, Vac intact w SS output EXTREMITIES: MAK, No deformities, +Anasarca, palpable pulses SKIN: Skin color, texture, turgor normal, No rashes or lesions ASSESSMENT AND PLAN: Active Hospital Problems Diagnosis Date Noted - Ruptured abdominal aortic aneurysm (AAA) ([facility]) 01/12/2018 - Obesity, Class I, BMI 30-34.9 01/16/2018 - Encephalopathy 01/13/2018 - DIC (disseminated intravascular coagulation) ([facility]) 01/12/2018 - Hemorrhagic shock ([facility]) 01/12/2018 - Acute respiratory failure ([facility]) 01/12/2018 - Cardiac arrest ([facility]) 01/12/2018 - Hypernatremia 01/12/2018 - Hypokalemia 01/12/2018 - Hypomagnesemia 01/12/2018 - Hypophosphatemia 01/12/2018 - Hyperchloremia 01/12/2018 - AAA (abdominal aortic aneurysm, ruptured) ([facility]) 01/12/2018 Overview Note: Added automatically from request for surgery [id number] 77 year old male with Ruptured AAA s/p Emergent Repair, takeback washout, repair of serosal tears x2, on 01/12, hemorrhagic shock, acute resp failure with pulm edema, TERENCE, SVT, s/p Third Look Laparotomy and?washout on 01/14, fourth look, washout, vac change on 01/16, Partial fascial closure on 01/19 ? - Vent mgmt per MICU - NPO/TPN/TFs --> per nurse family does not want TFs? - Wean Levo and sedation as able - Acute blood loss and dilutional anemia and thrombocytopenia - monitor, transfuse prn - TERENCE -->?CVVHD per?Nephro, diurese as tolerates, down ~5kg - CXR bilateral improvement, small left effusion, consolidation improving - Unasyn empirically per MICU - Hypocalcemia?- replacing - cont scrotal support - Cont WV - Hyperbilirubinemia - likely transfusion related, consider RUQ US if fevers develop and LFTs/jaundice ?worsen - Solucortef 50mg q8h per MICU - Leukocytosis - reactive and steroid related, afebrile, monitor ?? Assessment and plan discussed with attending: Dr. De Anda SIGNATURE: Dionicio Stevens MD PATIENT NAME: Naveen Akins DATE: January 22, 2018 TIME: 6:28 AM Vascular AND Thoracic Surgery Service Pager: For questions or concerns Tue-Tue 6a-5p please page [phone]. After 5pm and on Weekends and Holidays, please page [phone] if in ICU or [phone] if on RNF. MAGNESIUM BLOOD Collected: 01/22/2018 Status: F Source: [facility] 4:20 AM HEALTH SYSTEM REPOSITORY TYPE CODE TESTS RESULT OUT OF REFERENCE UNITS RANGE LAB MAG(LOINC) 1.6-2.6 mg/dL High Magnesium Blood 2.9 Performed By: #### MAG #### [facility] [address] [address] PHOSPHORUS BLOOD Collected: 01/22/2018 Status: F Source: [facility] 4:20 AM HEALTH SYSTEM REPOSITORY TYPE CODE TESTS RESULT OUT OF REFERENCE UNITS RANGE LAB PHOS(LOINC 2.5-4.9 mg/dL ) Phosphorus Blood 4.4 Performed By: #### PHOS #### [place] [address] HEMOGRAM/DIFF Collected: 01/22/2018 Status: F Source: [facility] 4:20 AM HEALTH SYSTEM REPOSITORY TYPE CODE TESTS RESULT OUT OF REFERENCE UNITS RANGE LAB WBC(LOINC) 4.23-9.07 thou/cmm WBC High 17.33 LAB RBC(LOINC) 4.63-6.08 mil/cmm Low RBC 2.77 LAB HGB(LOINC) 13.7-17.5 g/dL Low Hgb 8.1 LAB HCT(LOINC) 40.1-51.0 % Low Hct 23.7 LAB MCV(LOINC) 83.2-95.6 fl MCV 85.6 LAB MCH(LOINC) 25.7-32.2 pg MCH 29.2 LAB MCHC(LOINC 32.3-36.5 % ) MCHC 34.2 LAB RDW(LOINC) 11.6-14.4 % RDW High 20.4 LAB RDWSD(LOIN 36.1-45.8 fl C) RDW SD High 58.4 LAB PLT(LOINC) 141-365 thou/cmm Low Platelet 109 LAB NRBCR(LOIN 0.0-0.2 % C) High Nucleated RBC % 0.6 LAB SEG(LOINC) % Seg Neutrophil 88.1 LAB IGRE(LOINC % ) Immature Grans 6.50 LAB LYMPH(LOIN % C) Lymphocyte 3.5 LAB MNO(LOINC) % Monocyte 1.8 LAB EOSIN(LOIN % C) Eosinophil 0.0 LAB BASO(LOINC % ) Basophil 0.1 LAB NRBCA(LOIN 0.00-0.01 thou/cmm C) High Nucleated RBC 0.11 Absolute LAB SEGN(LOINC 1.78-5.38 thou/cmm ) Abs. High Neut (ANC) 15.27 LAB IGAB(LOINC 0.00-0.05 thou/cmm ) Abs High Immature Grans 1.13 LAB LYMN(LOINC 0.84-2.85 thou/cmm ) Low Abs. Lymph 0.61 LAB MONON(LOIN 0.30-0.82 thou/cmm C) Abs. Rincon 0.31 LAB EOSN(LOINC 0.04-0.54 thou/cmm ) Low Abs. Eosin 0.00 LAB BASON(LOIN 0.01-0.08 thou/cmm C) Abs. Baso 0.02 Result Comment: Smear scanned; tech agrees with automated differential Performed By: #### [id number] #### [place] [address] BASIC PANEL Collected: 01/22/2018 Status: F Source: [facility] 4:20 AM HEALTH SYSTEM REPOSITORY TYPE CODE TESTS RESULT OUT OF REFERENCE UNITS RANGE LAB NA(LOINC) 136-145 mEq/L Sodium Blood 139 LAB K(LOINC) 3.5-5.1 mEq/L Potassium Blood 4.8 LAB CL(LOINC) 98-107 mEq/L Chloride Blood 106 LAB CO2(LOINC) 21-32 mEq/L Low CO2 Blood 20 LAB GLU(LOINC) 70-99 mg/dL Glucose High Blood 232 LAB BUN(LOINC) 7-18 mg/dL BUN High Blood 49 LAB CREA(LOINC 0.67-1.17 mg/dL ) High Creatinine Blood 1.80 LAB CA(LOINC) 8.5-10.1 mg/dL Low Calcium Blood 7.2 LAB ANGAP(LOIN 8-16 C) Anion High Gap 18 Performed By: #### P8 #### [facility] [address] [address] BLOOD GAS ARTERIAL Collected: 01/21/2018 Status: F Source: [facility] 10:24 PM HEALTH SYSTEM REPOSITORY TYPE CODE TESTS RESULT OUT OF REFERENCE UNITS RANGE LAB FIO2(LOINC % ) FIO2 50 LAB TEMPA(LOIN C) Temperature 36.8 LAB PH(LOINC) 7.350-7.450 pH Arterial 7.405 LAB PCO2(LOINC 36.0-46.0 mm Hg ) Low PCO2 Arterial 33.0 LAB PO2(LOINC) 85.0-96.0 mm Hg PO2 High Arterial 141.5 LAB HCO3A(LOIN 22.0-26.0 mEq/L C) Low HCO3- 20.3 LAB O2%A(LOINC 95.0-98.0 % ) O2% Sat High Arterial 98.7 LAB BASEX(LOIN -2.5 to 2.5 mEq/L C) Base Excess -4.0 Performed By: #### ABG #### [facility] [address] [address] BLOOD GAS ARTERIAL Collected: 01/21/2018 Status: F Source: [facility] 4:10 PM HEALTH SYSTEM REPOSITORY TYPE CODE TESTS RESULT OUT OF REFERENCE UNITS RANGE LAB FIO2(LOINC % ) FIO2 40 LAB TEMPA(LOIN C) Temperature 37.0 LAB PH(LOINC) 7.350-7.450 pH Arterial 7.392 LAB PCO2(LOINC 36.0-46.0 mm Hg ) Low PCO2 Arterial 31.7 LAB PO2(LOINC) 85.0-96.0 mm Hg Low PO2 Arterial 76.1 LAB HCO3A(LOIN 22.0-26.0 mEq/L C) Low HCO3- 18.9 LAB O2%A(LOINC 95.0-98.0 % ) O2% Sat Arterial 95.8 LAB BASEX(LOIN -2.5 to 2.5 mEq/L C) Base Excess -5.3 Performed By: #### ABG #### [facility] [address] [address] HEMOGRAM Collected: 01/21/2018 Status: F Source: [facility] 4:09 PM HEALTH SYSTEM REPOSITORY TYPE CODE TESTS RESULT OUT OF REFERENCE UNITS RANGE LAB WBC(LOINC) 4.23-9.07 thou/cmm WBC High 19.56 LAB RBC(LOINC) 4.63-6.08 mil/cmm Low RBC 3.04 LAB HGB(LOINC) 13.7-17.5 g/dL Low Hgb 8.8 LAB HCT(LOINC) 40.1-51.0 % Low Hct 26.2 LAB MCV(LOINC) 83.2-95.6 fl MCV 86.2 LAB MCH(LOINC) 25.7-32.2 pg MCH 28.9 LAB MCHC(LOINC 32.3-36.5 % ) MCHC 33.6 LAB RDW(LOINC) 11.6-14.4 % RDW High 20.1 LAB RDWSD(LOIN 36.1-45.8 fl C) RDW High SD 58.8 LAB PLT(LOINC) 141-365 thou/cmm Low Platelet 114 LAB MPV(LOINC) 8.7-12.0 fl MPV High 13.5 LAB NRBCR(LOIN 0.0-0.2 % C) High Nucleated RBC % 0.9 LAB NRBCA(LOIN 0.00-0.01 thou/cmm C) High Nucleated RBC 0.18 Absolute Performed By: #### CBC1 #### [facility] [address] [address] PROGRESS Observed: 01/21/2018 Status: COMPLETED Source: [place] 12:47 PM CLINIC OTHER CAMPUS REPOSITORY HNO ID: [id number] Author: Tracey TylerRn) MAGALY De La Fuente Service: Dialysis Author Type: Registered Nurse Type: Progress Notes Filed: 01/21/2018 12:49 PM Note Text: CRRT restarted using same orders after pt returned form OR. M100 dialyzer. Access via left neck temp HD cath. starting TMP 101. Report to Jose GARDNER ANES POST Observed: 01/21/2018 Status: COMPLETED Source: [place] 12:05 PM CLINIC OTHER CAMPUS REPOSITORY HNO ID: [id number] Author: Tim Tabor Service: Anesthesiology Author Type: Physician Type: Anesthesia PostOp Filed: 01/21/2018 12:06 PM Note Text: POST ANESTHESIA EVALUATION NOTE SERVICE DATE: 01/21/2018 SERVICE TIME: 12:05 PM : 1940 Vitals: 01/20/18 1900 01/21/18 0000 01/21/18 0500 01/21/18 0730 Temp: 36 ?C (96.8 ?F) 36.8 ?C (98.2 ?F) 37 ?C (98.6 ?F) 36.3 ?C (97.3 ?F) 01/21/18 0700 01/21/18 0715 01/21/18 0730 01/21/18 0745 Arterial BP 1: 128/59 129/60 133/61 137/62 BP: 01/21/18 0700 01/21/18 0715 01/21/18 0730 01/21/18 0745 Pulse: 76 76 86 74 01/21/18 0700 01/21/18 0715 01/21/18 0730 01/21/18 0745 Resp: 16 16 24 17 01/21/18 0700 01/21/18 0715 01/21/18 0730 01/21/18 0745 SpO2: 97% 97% 96% 96% Validated Vital Signs: Yes POST ANES STATUS: PACU/ICU Patient Condition: Guarded Neurological Status: On intravenous sedation. Pulmonary Status: On invasive mechanical ventilation. Airway Control: Intubated on mechanical ventilation. Cardiovascular Status: Stable and On vasopressor Pain: Adequately controlled Postoperative Nausea/Vomiting: No significant post operative nausea or vomiting Postoperative Hydration Status: Adequate. Anesthetic Complications: None Recommendation: Further care per PACU/ICU/Floor team Other Remarks: SIGNATURE: Tim Tabor MD PATIENT NAME: Naveen Akins DATE: January 21, 2018 TIME: 12:05 PM PAGER/CONTACT #: [phone] PROGRESS Observed: 01/21/2018 Status: COMPLETED Source: [place] 12:01 PM [facility] OTHER CAMPUS REPOSITORY HNO ID: [id number] Author: Paulo Lovelace (Cns) Service: Critical Care Author Type: Nurse Specialist Type: Progress Notes Filed: 01/21/2018 12:18 PM Note Text: MICU - PROGRESS NOTE SERVICE DATE: 01/21/2018 SERVICE TIME: 12:01 PM Admission Date: 01/12/2018 AGE: [id number] year old LOS: 9 days Subjective REASON FOR ICU ADMISSION: Respiratory Failure and Shock Objective PROBLEMS: ACTIVE PROBLEM LIST Gallstone Pancreatitis Ruptured Abdominal Aortic Aneurysm (Aaa) (Hcc) Dic (Disseminated Intravascular Coagulation) (Hcc) Hemorrhagic Shock (Hcc) Acute Respiratory Failure (Hcc) Cardiac Arrest (Hcc) Hypernatremia Hypokalemia Hypomagnesemia Hypophosphatemia Hyperchloremia Encephalopathy Aaa (Abdominal Aortic Aneurysm, Ruptured) (Hcc) Obesity, Class I, Bmi 30-34.9 PAST MEDICAL HISTORY Diagnosis Date - DIC (disseminated intravascular coagulation) (HCC) 01/12/2018 PAST SURGICAL HISTORY Procedure Laterality Date - LAP CHOLECYSTECT/CHOLANGIOGRAPHY 05-28-09 - REPAIR UMBILICAL NATAN,5+Y/O,REDUC 05-28-09 Social History Marital status: Spouse name: Shelly Years of education: 11 Number of children: 4 Occupational History 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 BP 132/57 Pulse 74 Temp (Src) 97.3 (Axillary) Resp 17 Ht 5' 8 (1.73m) Wt 207 lb 7.3 oz (94.1kg) SpO2 96% BMI 31.55 kg/(m2). Temp (24hrs), Av.9 ?C (96.7 ?F), Min:35.1 ?C (95.2 ?F), Max:37 ?C (98.6 ?F) NET FLUID BALANCE Intake/Output Summary (Last 24 hours) at 01/21/18 1201 Last data filed at 01/21/18 0900 Gross per 24 hour Intake 1614.9 ml Output 7868 ml Net -6253.1 ml MEDICATIONS Current Facility-Administered Medications: [MAR Hold due to Transfer] dexmedetomidine 400 mcg in NaCl 0.9% 100 mL (PRECEDEX) 0.2-0.7 mcg/kg/hr INTRAVENOUS CONTINUOUS [MAR Hold due to Transfer] Parenteral Nutrition - Adult INTRAVENOUS ONCE TPN (1800 START) [MAR Hold due to Transfer] carboxymethylcellulose sodium 1- 2 Drop (CELLUVISC) 1-2 Drop BOTH EYES PRN [MAR Hold due to Transfer] polyvinyl alcohol-povidone 1.4- 0.6 % 1 Drop (REFRESH) 1 Drop BOTH EYES QID PRN [MAR Hold due to Transfer] propofol infusion (DIPRIVAN) 0- 15 mcg/kg/min (Adjusted) INTRAVENOUS CONTINUOUS [MAR Hold due to Transfer] hydrocortisone sodium succinate (PF) 50 mg injection (Solu-CORTEF) 50 mg INTRAVENOUS q 8 H [MAR Hold due to Transfer] heparin 1,000 unit/mL 4,000 Units injection 4,000 Units INTRAVENOUS 3 Times weekly with dialysis [MAR Hold due to Transfer] heparin 5,000 Units injection 5,000 Units SUBCUTANEOUS q 12 H [MAR Hold due to Transfer] ampicillin-sulbactam 3 g in NaCl 0.9% 100 mL MB+ (UNASYN) 3 g INTRAVENOUS q 6 H [MAR Hold due to Transfer] NaCl 0.9% 1,000 mL iv bolus 1,000 mL INTRAVENOUS PRN DIALYSIS [MAR Hold due to Transfer] prismaSOL BGK 4 K / 2.5 mEq Ca/Liter 5,000 mL 5,000 mL HEMODIALYSIS continuous (no dispense) [MAR Hold due to Transfer] prismaSOL BGK 4 K / 2.5 mEq Ca/Liter 5,000 mL 5,000 mL HEMODIALYSIS continuous (no dispense) [MAR Hold due to Transfer] prismaSOL BGK 4 K / 2.5 mEq Ca/Liter 5,000 mL 5,000 mL HEMODIALYSIS continuous (no dispense) [MAR Hold due to Transfer] dextrose 40 % 15 g 15 g ORAL PRN Or [MAR Hold due to Transfer] glucagon 1 mg injection (GLUCAGEN) 1 mg INTRAMUSCULAR PRN Or [MAR Hold due to Transfer] dextrose 50% in water 25 mL syringe 12.5 g INTRAVENOUS PRN [MAR Hold due to Transfer] magnesium sulfate 1 g in D5W 100 mL 1 g INTRAVENOUS PRN [MAR Hold due to Transfer] magnesium sulfate in water 2 g in sterile water 50 ml 2 g INTRAVENOUS PRN [MAR Hold due to Transfer] fentaNYL 20 mcg/mL iv infusion in NaCl 0.9% 100 mL 0-100 mcg/hr INTRAVENOUS CONTINUOUS [MAR Hold due to Transfer] pantoprazole 40 mg injection (PROTONIX) 40 mg INTRAVENOUS DAILY (6 AM) [MAR Hold due to Transfer] NORepinephrine 16 mg in D5W 250 mL (LEVOPHED) 0-30 mcg/min INTRAVENOUS CONTINUOUS [MAR Hold due to Transfer] Chlorhexidine Gluconate 0.12 % 15 mL (PERIDEX) 15 mL ORAL q 12 H Lines, Drains, and Airways Line Dialysis / Apheresis Double Lumen 01/13/18 1136 Left Neck 8 days Arterial Line 01/19/18 0840 Arterial Line Right Radial 2 days Central Line Quadruple Lumen 01/19/18 1056 Right Neck 2 days Drain GI Feed/Drain 01/12/18 0100 9 days Drain/Tube 01/19/18 1015 Midline Abdomen 2 days Airway Airway Endotracheal Tube 01/12/18 1138 9 days PHYSICAL EXAM PERFORMED: Cardiovascular: Regular rhythm Respiratory: Reduced breath sounds bilat and Rhonchi (R) %FIO2 Min: 40 Max: 90 Abdomen: SP abdominal wound closure Wound Vac in place Extremities: Edema- Generalized edema Neurologic: Sedated Respiratory/Nursing Documentation: O2 Therapy: Ventilator (01/21/18 114) Invasive Ventilator Mode: Pressure Regulated Volume Control (01/21/18 114) Set Ventilator Respiratory Rate (BPM): 20 (01/21/18 1141) Total Respiratory Rate (BPM): 20 (01/21/18 114) Tidal Volume Set (mL): 480 (01/21/18 1141) Exhaled Tidal Volume (mL): 470 (01/21/18 1141) Minute Volume (L): 10.1 (01/21/18 114) Peak Inspiratory Pressure (cm H2O): 33 (01/21/18 1141) PEEP/CPAP (cm H2O): 8 (01/21/18 114) HEMODYNAMIC DATA: Reviewed NUTRITION: Enteral Feeds: TPN at 100ml/hr DATA: Diagnostic tests reviewed for today's visit, films/specimens were personally reviewed by me: Most recent labs and imaging results. LABS: Recent Labs 01/21/18 0430 01/20/18 0345 WBC 19.46* < > 14.99* RBC 3.12* < > 3.18* HB 9.1* < > 9.4* HCT 26.7* < > 27.1* MCV 85.6 < > 85.2 PLT 100* < > 97* GLUC 209* -- 186* BUN 42* -- 36* CREAT 1.85* -- 1.84* NA 136 -- 135* K 4.4 -- 4.5 CHLOR 103 -- 104 CO2 23 -- 21 TPROT -- -- 4.9* ALB -- -- 1.5* CA 7.1* -- 6.8* ALKPHOS -- -- 190* TBILI -- -- 6.0* AST -- -- 130* ALT -- -- 57 MG 2.7* -- 2.6 < > = values in this interval not displayed. ABG: Recent Labs 01/21/18 0430 01/20/18 2210 01/20/18 1620 PH 7.424 7.421 7.391 PO2 89.8 69.0* 228.3* PCO2 31.9* 31.2* 34.2* Assessment/Plan IMPRESSION: Critical Care Documentation: The patient has the following organ/system impairment(s): Respiratory failure (with Hypoxemia) 1.Acute hypoxic respiratory failure/ARDS/Bilat pleuaral effusions-remains intubated on 50% O2-SP right thoracentesis for 750ml 2. Ruptured AAA Sp repair-Wound closed this morning 3.SP cardiac arrest 4.Shock-Levophed support 5. Pt is nonresponsive-even to noxious stimuli-Encephalopathy 6.Thrombocytopenia 7.Nutritional support-TPN 8.Sinus tachycardia-SVT resolved-continue amiodarone drip 9.TERENCE on CKD-on CRRT 10. Fentanyl drip at 75mcg/kh for pain control ? This patient has a high probability of sudden, clinically significant deterioration, which requires the highest level of physician preparedness to intervene urgently. I managed/supervised life or organ supporting interventions that required frequent physician assessment. I devoted my full attention to the direct care of this patient for the amount of time indicated below. Time I spent with family or surrogate(s) is included only if the patient was incapable of providing the necessary information or participating in medical decision making. Time devoted to teaching is not included. Discussed with staff/patient/family Time spent providing critical care services: 30 minutes excluding procedures. SIGNATURE: Paulo Lovelace APRN.MAINTENANCE TEAM MEMBER PATIENT NAME: Naveen Akins DATE: January 21, 2018 TIME: 12:01 PM BRIEF OP NOT Observed: 01/21/2018 Status: COMPLETED Source: [place] 11:29 AM CLINIC OTHER CAMPUS REPOSITORY HNO ID: [id number] Author: Tristen Luz Service: General Surgery Author Type: Resident Type: Brief Op Note Filed: 01/21/2018 11:30 AM Note Text: Attestation signed by Costa Miguel at 01/21/2018 1:32 PM I was present for the critical and coleman portions of the surgery and I was immediately available to provide assistance. Costa Miguel MD, [facility], [facility] BRIEF OPERATIVE / PROCEDURE NOTE LOG ID: [id number] SURGERY/PROCEDURE DATE: 01/21/2018 INCISION/PROCEDURE START TIME: 10:43 AM INCISION CLOSE/PROCEDURE END TIME: 11:17 AM SURGEON(S)/PROCEDURALIST(S) AND VISUAL ARTS TEACHER(S): Surgeon(s) and Role: * Costa Miguel - Primary * Tristen Luz - Resident - Assisting * Emilie TylerResLisette Peralta - Resident - Assisting No Additional Staff SURGERY/PROCEDURE(S): Abdominal closure, placement of wound vac ANESTHESIA: General FINDINGS: Fascia closed. No leak from wound vac. ESTIMATED BLOOD LOSS: 0 ml SPECIMENS: None COMPLICATIONS: None PRE-OP/PRE-PROCEDURE DIAGNOSIS: Ruptured abdominal aortic aneurysm POST-OP/POST-PROCEDURE DIAGNOSIS: Ruptured abdominal aortic aneurysm (AAA) (HCC) [I71.3] SIGNATURE: Tristen Luz MD PATIENT NAME: Naveen Akins DATE: January 21, 2018 TIME: 11:29 AM PAGER/CONTACT #: [phone] OR ABDOMEN 1 VIEW IN Observed: 01/21/2018 Status: F Source: [facility] 11:15 AM HEALTH SYSTEM REPOSITORY Performed at [facility] APPROVED BY: Matt Geiger MD EXAM TITLE: OR ABDOMEN 1 VIEW IN OR DATE: 01/21/2018 11:01 INDICATION: Intraoperative film performed for instrument count. COMPARISON: None. Single supine view the abdomen shows multiple surgical clips along the left side of the lumbar spine extending from L2 to L5 and L3-L4 on the right side. All of these metallic densities appear to represent surgical clips. No other metallic densities are seen within the field of this film. Degenerative changes noted in the lumbar spine. IMPRESSION: Multiple surgical clips seen adjacent to the lumbar spine as described. No other radiopaque density is noted. ANES PREOP Observed: 01/21/2018 Status: COMPLETED Source: [place] 10:10 AM [facility] OTHER CAMPUS REPOSITORY HNO ID: [id number] Author: Tim Tabor Service: Anesthesiology Author Type: Physician Type: Anesthesia PreOp Filed: 01/21/2018 10:14 AM Note Text: ANESTHESIOLOGY DAY OF SURGERY NOTE SERVICE DATE: 01/21/2018 SERVICE TIME: 10:10 AM : 1940 Procedure(s) (LRB): EXPLORATORY LAPAROTOMY (N/A) CLOSURE WOUND ABDOMEN (N/A) APPLICATION WOUND VAC ABDOMEN TOTAL WOUND SURFACE LESS THAN 50 SQ CENTIMETERS (N/A) Surgeon(s): Costa Ramon (Res) Sukh Estimated body mass index is 31.54 kg/m? as calculated from the following: Height as of this encounter: 172.7 cm (5' 8). Weight as of this encounter: 94.1 kg (207 lb 7.3 oz). Most recent hematocrit and potassium results: Hematocrit 26.7 01/21/2018 Potassium 4.4 01/21/2018 ANES DOS/PREOP NOTE: Vitals: 01/21/18 0700 01/21/18 0715 01/21/18 0730 01/21/18 0745 BP: Pulse: 76 76 86 74 Resp: 16 16 24 17 Temp: 36.3 ?C (97.3 ?F) TempSrc: Axillary SpO2: 97% 97% 96% 96% Weight: Height: ACTIVE PROBLEM LIST Gallstone Pancreatitis Ruptured Abdominal Aortic Aneurysm (Aaa) (Hcc) Dic (Disseminated Intravascular Coagulation) (Hcc) Hemorrhagic Shock (Hcc) Acute Respiratory Failure (Hcc) Cardiac Arrest (Hcc) Hypernatremia Hypokalemia Hypomagnesemia Hypophosphatemia Hyperchloremia Encephalopathy Aaa (Abdominal Aortic Aneurysm, Ruptured) (Hcc) Obesity, Class I, Bmi 30-34.9 PAST MEDICAL HISTORY Diagnosis Date - DIC (disseminated intravascular coagulation) (HCC) 01/12/2018 PAST SURGICAL HISTORY Procedure Laterality Date - LAP CHOLECYSTECT/CHOLANGIOGRAPHY 05-28-09 - REPAIR UMBILICAL NATAN,5+Y/O,REDUC 05-28-09 FAMILY HISTORY Problem Relation Age of Onset - Coronary Artery Disease Father - None Mother Social History: Social History Substance Use Topics - Smoking status: Never Smoker - Smokeless tobacco: Not on file - Alcohol use No No current facility-administered medications on file prior to encounter. Current Outpatient Prescriptions on File Prior to Encounter: metoprolol succinate(TOPROL XL 50 MG 24 HR TAB) Take one(1) tablet daily. ASPIRIN 325 MG TAB Take one(1) tablet daily. triamterene/hydrochlorothiazid(DYAZIDE 37.5 MG-25 MG CAP) take one half (1/2) tablet daily LIPITOR 10 MG TAB Take one(1) tablet daily. Current Facility-Administered Medications: [MAR Hold due to Transfer] Parenteral Nutrition - Adult INTRAVENOUS ONCE TPN (1800 START) H [place] [MAR Hold due to Transfer] dexmedetomidine 400 mcg in NaCl 0.9% 100 mL (PRECEDEX) 0.2-0.7 mcg/kg/hr INTRAVENOUS CONTINUOUS Paulo (Meter Repair Shop Supervisor) Radu Last Rate: 9.67 mL/hr at 01/21/18 0730 0.4 mcg/kg/hr at 01/21/18729 [MAR Hold due to Transfer] Parenteral Nutrition - Adult INTRAVENOUS ONCE TPN (1800 START) H Edwin [place]ley Last Rate: 75 mL/hr at 01/21/18 0730 [MAR Hold due to Transfer] carboxymethylcellulose sodium 1- 2 Drop (CELLUVISC) 1-2 Drop BOTH EYES PRN Venkat [place] [MAR Hold due to Transfer] polyvinyl alcohol-povidone 1.4- 0.6 % 1 Drop (REFRESH) 1 Drop BOTH EYES QID PRN Paulo ([employer]) [place] 1 Drop at 01/19/18 2315 [MAR Hold due to Transfer] propofol infusion (DIPRIVAN) 0- 15 mcg/kg/min (Adjusted) INTRAVENOUS CONTINUOUS Dionicio (Res) Stevens Last Rate: 7.44 mL/hr at 01/21/18 0745 15 mcg/kg/min at 01/21/18 0745 [MAR Hold due to Transfer] hydrocortisone sodium succinate (PF) 50 mg injection (Solu-CORTEF) 50 mg INTRAVENOUS q 8 H Shen Lorenzo 50 mg at 01/21/18 0530 [MAR Hold due to Transfer] heparin 1,000 unit/mL 4,000 Units injection 4,000 Units INTRAVENOUS 3 Times weekly with dialysis Troy Godoy 4,000 Units at 01/17/182225 [MAR Hold due to Transfer] heparin 5,000 Units injection 5,000 Units SUBCUTANEOUS q 12 H Mervin (Res) Wally 5,000 Units at 01/20/182037 [MAR Hold due to Transfer] ampicillin-sulbactam 3 g in NaCl 0.9% 100 mL MB+ (UNASYN) 3 g INTRAVENOUS q 6 H Herman A Herman Last Rate: 200 mL/hr at 01/21/18 0530 3 g at 01/21/18529 [MAR Hold due to Transfer] NaCl 0.9% 1,000 mL iv bolus 1,000 mL INTRAVENOUS PRN DIALYSIS Shen Lorenzo [MAR Hold due to Transfer] prismaSOL BGK 4 K / 2.5 mEq Ca/Liter 5,000 mL 5,000 mL HEMODIALYSIS continuous (no dispense) Shen Lorenzo Last Rate: 700 mL/hr at 01/16/18 1300 5,000 mL at 01/21/18 0200 [MAR Hold due to Transfer] prismaSOL BGK 4 K / 2.5 mEq Ca/Liter 5,000 mL 5,000 mL HEMODIALYSIS continuous (no dispense) Shen Lorenzo Last Rate: 700 mL/hr at 01/16/18 1300 5,000 mL at 01/21/18 0200 [MAR Hold due to Transfer] prismaSOL BGK 4 K / 2.5 mEq Ca/Liter 5,000 mL 5,000 mL HEMODIALYSIS continuous (no dispense) Shen Lorenzo Last Rate: 700 mL/hr at 01/16/18 1300 5,000 mL at 01/21/18 0200 [MAR Hold due to Transfer] dextrose 40 % 15 g 15 g ORAL PRN Jack Regula Or [MAR Hold due to Transfer] glucagon 1 mg injection (GLUCAGEN) 1 mg INTRAMUSCULAR PRN Jack Regula Or [MAR Hold due to Transfer] dextrose 50% in water 25 mL syringe 12.5 g INTRAVENOUS PRN Jack Regula [MAR Hold due to Transfer] magnesium sulfate 1 g in D5W 100 mL 1 g INTRAVENOUS PRN Emilie (Res) Cardella Last Rate: 100 mL/hr at 01/15/18 0016 1 g at 01/15/18 0016 [MAR Hold due to Transfer] magnesium sulfate in water 2 g in sterile water 50 ml 2 g INTRAVENOUS PRN Emilie (Res) Cardella Last Rate: 25 mL/hr at 01/13/18 1004 2 g at 01/13/18 1004 [MAR Hold due to Transfer] fentaNYL 20 mcg/mL iv infusion in NaCl 0.9% 100 mL 0-100 mcg/hr INTRAVENOUS CONTINUOUS Smooth C Winston Last Rate: 7.5 mL/hr at 01/21/18 0740 150 mcg/hr at 01/21/18 0740 [MAR Hold due to Transfer] pantoprazole 40 mg injection (PROTONIX) 40 mg INTRAVENOUS DAILY (6 AM) Emilie (Res) Cardella 40 mg at 01/21/18 0530 [MAR Hold due to Transfer] NORepinephrine 16 mg in D5W 250 mL (LEVOPHED) 0-30 mcg/min INTRAVENOUS CONTINUOUS Dionicio (Res) Stevens Last Rate: 9.38 mL/hr at 01/21/18 0730 10 mcg/min at 01/21/18 0730 [MAR Hold due to Transfer] Chlorhexidine Gluconate 0.12 % 15 mL (PERIDEX) 15 mL ORAL q 12 H Elder Granda 15 mL at 01/21/18 0740 Allergies: ALLERGIES No Known Allergies DOS EXAM: Adequate NPO Status: Yes Anesthetic Risks, Benefits, Alternatives, Personnel and Consent Discussed: Yes with family Patient agrees to proceed: Yes, per patient's parent/guardian Previous Anesthesia: No history of adverse event Airway Assessment: Patient intubated or has existing tracheostomy. Symptoms of Sleep Apnea: Age over 50 (77 year old) and Male gender Dentition: Pt intubated. Unable to fully assess Additional Physical Exam: Lungs: Patient health status unchanged since recent history and physical. See history and physical for exam findings. Cardiac: Patient health status unchanged since recent history and physical. See history and physical for exam findings. Additional Pertinent Findings: N/A Blood Products: Will accept Blood/Blood Products Anesthetic Plan: General Anesthetic Monitoring: Standard ASA Monitors, Invasive Hemodynamic Monitoring Arterial line in situ, Potential Prolonged Intubation, Potential ICU Admission Postop and Potential Multiple Transfusions Pain Management Plan: Parenteral or Oral ASA Class: 4 Other Medical Problems: ? 77 year old male with Ruptured AAA s/p Emergent Repair, takeback washout, repair of serosal tears x2, on 01/12, hemorrhagic shock, acute resp failure with pulm edema, TERENCE, SVT, s/p Third Look Laparotomy and?washout on 01/14, fourth look, washout, vac change on 01/16, Partial fascial closure on 01/19. Pt s/p R thoracentesis yesterday with significant improvement in oxygenation/ventilation now they will reattempt to close the abdomen. Other hx includes hx SVT, TERENCE on CRRT, shock on levo at 10. Chronic Beta Lyric medication administered within 24 hours: N/A I have interviewed and examined the patient. I have reviewed the medical record and/or the pre-anesthesia evaluation, pertinent labs, and test results. Significant changes in the patient's condition since the History and Physical, not otherwise documented in primary service progress notes: No This contains updated information obtained within 48 hours of Surgery/Procedure. SIGNATURE: Tim Tabor MD PATIENT NAME: Naveen Akins DATE: January 21, 2018 TIME: 10:10 AM CSN: [id number] PROGRESS Observed: 01/21/2018 Status: COMPLETED Source: [place] 9:35 AM [facility] OTHER CAMPUS REPOSITORY O ID: [id number] Author: Vicky Devi MD Service: Nephrology Author Type: Physician Type: Progress Notes Filed: 01/22/2018 9:30 AM Note Text: Subjective. Intubated with FIO2 40%. sedated 01/21/18 0700 01/21/18 0715 01/21/18 0730 01/21/18 0745 BP: Pulse: 76 76 86 74 Resp: 16 16 24 17 Temp: 36.3 ?C (97.3 ?F) TempSrc: Axillary SpO2: 97% 97% 96% 96% Weight: Height: Intubated. Sedated. Not responsive No JVD Heart - S1 S2 Lungs - b/l air entry. CTA Abdomen - soft, non distended, no organomegaly LE - + edema, No cyanosis No rash Lab: Recent Labs 01/21/18 0430 01/20/18 1620 01/20/18 1050 01/20/18 0345 01/19/18 1630 WBC 19.46* 19.70* 17.96* 14.99* 13.43* RBC 3.12* 3.11* 3.06* 3.18* 3.37* HB 9.1* 9.0* 9.1* 9.4* 9.8* HCT 26.7* 27.1* 26.1* 27.1* 28.9* PLT 100* 94* 100* 97* 91* MCV 85.6 87.1 85.3 85.2 85.8 MCH 29.2 28.9 29.7 29.6 29.1 MPV -- 12.3* -- 12.5* 11.5 RDW 19.9* 19.8* 19.4* 19.1* 18.6* Recent Labs 01/21/18 0430 01/20/18 0345 01/19/18 1630 01/18/18 1000 01/14/18 1555 GLUC 209* 186* 241* < > -- < > 78 NA 136 135* 138 < > -- < > 142 K 4.4 4.5 4.3 < > -- < > 4.5 CHLOR 103 104 106 < > -- < > 111* CO2 23 21 22 < > -- < > 22 CREAT 1.85* 1.84* 1.90* < > -- < > 2.10* BUN 42* 36* 31* < > -- < > 17 ANION 14 15 14 < > -- < > 14 CA 7.1* 6.8* 6.5* < > -- < > 6.4* TPROT -- 4.9* -- -- 4.8* -- 3.7* ALB -- 1.5* -- -- 1.7* -- 1.7* TBILI -- 6.0* -- -- 4.3* -- 2.9* ALKPHOS -- 190* -- -- 124* -- 67 AST -- 130* -- -- 65* -- 69* ALT -- 57 -- -- 18 -- 13 < > = values in this interval not displayed. Assessment/ Plan 1. Acute kidney injury on chronic kidney disease stage 3. Baseline SCr is 1.36 mg/dL on 11/14/17. CKD is likely due to nephrosclerosis related to PAD. TERENCE is 2/2 ischemic ATN from shock. Patient is CRRT dependent for fluid and metabolic support Anuric. No recovery of kidney function I will continue the same CVVHDF parameters with net UF 100 cc/hour ? 2. Shock. Likely hemorrhagic shock-massive blood loss from ruptured AAA +/- adrenal insufficiency. Continue hydrocortisone. On levophed D/w Dr. Sutton. ? 5. Ruptured AAA. s/p repair 01/12/18. Management as per vascular surgery.Going to OR today for closure ? 6. Acute hypoxic respiratory failure. Ventilator dependent. Vent management as per ICU. O>I with CRRT UF. Will d/w Dr. Herman Devi MD PROGRESS Observed: 01/21/2018 Status: COMPLETED Source: [place] 9:06 AM [facility] REPOSITORY [facility] ID: [id number] Author: Herman Sutton Service: Critical Care Author Type: Physician Type: Progress Notes Filed: 01/21/2018 9:14 AM Note Text: MICU - PROGRESS NOTE SERVICE DATE: 01/21/2018 SERVICE TIME: 9:06 AM Admission Date: 01/12/2018 AGE: [age] year old LOS: 9 days Subjective REASON FOR ICU ADMISSION: Patient restill critically ill, intubated on mechanical ventilation now on 40% Fio2 and 8 of PEEP after right sided thoracentesis tachypneic without vent dyssynchrony Vasopressors off CRRT resumed and fluid is pulled at rate of 100cc/hr Still encephalopathic and more agitated when weaning off sedation Going back to OR for closure today Objective PROBLEMS: ACTIVE PROBLEM LIST Gallstone Pancreatitis Ruptured Abdominal Aortic Aneurysm (Aaa) (Hcc) Dic (Disseminated Intravascular Coagulation) (Hcc) Hemorrhagic Shock (Hcc) Acute Respiratory Failure (Hcc) Cardiac Arrest (Hcc) Hypernatremia Hypokalemia Hypomagnesemia Hypophosphatemia Hyperchloremia Encephalopathy Aaa (Abdominal Aortic Aneurysm, Ruptured) (Hcc) Obesity, Class I, Bmi 30-34.9 PAST MEDICAL HISTORY Diagnosis Date - DIC (disseminated intravascular coagulation) (HCC) 01/12/2018 PAST SURGICAL HISTORY Procedure Laterality Date - LAP CHOLECYSTECT/CHOLANGIOGRAPHY 05-28-09 - REPAIR UMBILICAL NATAN,5+Y/O,REDUC 05-28-09 Social History Marital status: Spouse name: Shelly Years of education: 11 Number of children: 4 Occupational History 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 BP 132/57 Pulse 74 Temp (Src) 97.3 (Axillary) Resp 17 Ht 5' 8 (1.73m) Wt 207 lb 7.3 oz (94.1kg) SpO2 96% BMI 31.55 kg/(m2). Temp (24hrs), Av.9 ?C (96.7 ?F), Min:35.1 ?C (95.2 ?F), Max:37 ?C (98.6 ?F) NET FLUID BALANCE Intake/Output Summary (Last 24 hours) at 01/21/18 0906 Last data filed at 01/21/18 0730 Gross per 24 hour Intake 1614.9 ml Output 7783 ml Net -6168.1 ml MEDICATIONS Current Facility-Administered Medications: dexmedetomidine 400 mcg in NaCl 0.9% 100 mL (PRECEDEX) 0.2- 0.7 mcg/kg/hr INTRAVENOUS CONTINUOUS Parenteral Nutrition - Adult INTRAVENOUS ONCE TPN (1800 START) carboxymethylcellulose sodium 1-2 Drop (CELLUVISC) 1-2 Drop BOTH EYES PRN polyvinyl alcohol-povidone 1.4-0.6 % 1 Drop (REFRESH) 1 Drop BOTH EYES QID PRN propofol infusion (DIPRIVAN) 0-15 mcg/kg/min (Adjusted) INTRAVENOUS CONTINUOUS hydrocortisone sodium succinate (PF) 50 mg injection (Solu- CORTEF) 50 mg INTRAVENOUS q 8 H heparin 1,000 unit/mL 4,000 Units injection 4,000 Units INTRAVENOUS 3 Times weekly with dialysis heparin 5,000 Units injection 5,000 Units SUBCUTANEOUS q 12 H ampicillin-sulbactam 3 g in NaCl 0.9% 100 mL MB+ (UNASYN) 3 g INTRAVENOUS q 6 H NaCl 0.9% 1,000 mL iv bolus 1,000 mL INTRAVENOUS PRN DIALYSIS prismaSOL BGK 4 K / 2.5 mEq Ca/Liter 5,000 mL 5,000 mL HEMODIALYSIS continuous (no dispense) prismaSOL BGK 4 K / 2.5 mEq Ca/Liter 5,000 mL 5,000 mL HEMODIALYSIS continuous (no dispense) prismaSOL BGK 4 K / 2.5 mEq Ca/Liter 5,000 mL 5,000 mL HEMODIALYSIS continuous (no dispense) dextrose 40 % 15 g 15 g ORAL PRN Or glucagon 1 mg injection (GLUCAGEN) 1 mg INTRAMUSCULAR PRN Or dextrose 50% in water 25 mL syringe 12.5 g INTRAVENOUS PRN magnesium sulfate 1 g in D5W 100 mL 1 g INTRAVENOUS PRN magnesium sulfate in water 2 g in sterile water 50 ml 2 g INTRAVENOUS PRN fentaNYL 20 mcg/mL iv infusion in NaCl 0.9% 100 mL 0-100 mcg/hr INTRAVENOUS CONTINUOUS pantoprazole 40 mg injection (PROTONIX) 40 mg INTRAVENOUS DAILY (6 AM) NORepinephrine 16 mg in D5W 250 mL (LEVOPHED) 0-30 mcg/min INTRAVENOUS CONTINUOUS Chlorhexidine Gluconate 0.12 % 15 mL (PERIDEX) 15 mL ORAL q 12 H Lines, Drains, and Airways Line Dialysis / Apheresis Double Lumen 01/13/18 1136 Left Neck 7 days Arterial Line 01/19/18 0840 Arterial Line Right Radial 2 days Central Line Quadruple Lumen 01/19/18 1056 Right Neck 1 day Drain Drain/Tube 01/12/18 Fecal Management System 9 days GI Feed/Drain 01/12/18 0100 9 days Drain/Tube 01/19/18 1015 Midline Abdomen 1 day Airway Airway Endotracheal Tube 01/12/18 1138 8 days PHYSICAL EXAM PERFORMED: General:sedated intubated Cardiovascular: Regular rhythm Respiratory: tachypneic, on 40% and 8 PEEP Abdomen: Soft, open wound Extremities: Edema- No Neurologic: sedated Respiratory/Nursing Documentation: O2 Therapy: Ventilator (01/21/18 0730) Invasive Ventilator Mode: Pressure Regulated Volume Control (01/21/18318) Set Ventilator Respiratory Rate (BPM): 20 (01/21/18318) Total Respiratory Rate (BPM): 34 (01/21/18318) Tidal Volume Set (mL): 480 (01/21/18318) Exhaled Tidal Volume (mL): 562 (01/21/18318) Minute Volume (L): 11.3 (01/21/18318) Peak Inspiratory Pressure (cm H2O): 14 (01/21/18318) PEEP/CPAP (cm H2O): 8 (01/21/18318) HEMODYNAMIC DATA: Reviewed NUTRITION: Enteral Feeds: No TPN DATA: Diagnostic tests reviewed for today's visit, films/specimens were personally reviewed by me: Most recent labs and imaging results. LABS: Recent Labs 01/21/1842901/20/18 0345 WBC 19.46* < > 14.99* RBC 3.12* < > 3.18* HB 9.1* < > 9.4* HCT 26.7* < > 27.1* MCV 85.6 < > 85.2 PLT 100* < > 97* GLUC 209* -- 186* BUN 42* -- 36* CREAT 1.85* -- 1.84* NA 136 -- 135* K 4.4 -- 4.5 CHLOR 103 -- 104 CO2 23 -- 21 TPROT -- -- 4.9* ALB -- -- 1.5* CA 7.1* -- 6.8* ALKPHOS -- -- 190* TBILI -- -- 6.0* AST -- -- 130* ALT -- -- 57 MG 2.7* -- 2.6 < > = values in this interval not displayed. ABG: Recent Labs 01/21/1842901/20/18 2210 01/20/18 1620 PH 7.424 7.421 7.391 PO2 89.8 69.0* 228.3* PCO2 31.9* 31.2* 34.2* Assessment/Plan IMPRESSION: Acute Hypoxic Respiratory Failure on mechanical ventilation VOLUME OVERLOAD Large bilateral effusion s/p right side thoracentesis Ruptured AAA s/p surgical repair s/p Cardiac Arrest Encephalopathy??? TERENCE on CKD?- Suspected ATN - On CRRT Lactic Acidosis Sinus Tachycardia Thrombocytopenia SVT - Resolved MMP ? PLANS: OR today for closure? Continue?mechanical ventilation CRRT to help removing fluid, if needed vasopressors to be used to help keep his balance negative Fentanyl ?Drip for pain Propofol for sedation HD better with hydrocortisone EEG impressive for severe encephalopathy, no evidence of epileptiform activity/seizures AAA management/post-operative care per vascular surgery Continue w/ amiodarone gtt, monitor rhythm. ?No further runs of SVT Cardiology consulted, appreciate recs Continue TPN SCDs/PPI/ Heparin SQ per primary team ? ? Overall prognosis is poor, patient with multiorgan failure, TERENCE on CRRT and encephalopathic and difficult wean off sedation, Recommend discussion goals of care/Palliative care ? Critical Care Documentation:?The patient has the following organ/system impairment(s): ?Circulatory shock, Complex life-threatening ?medical problem(s) and Respiratory failure (Acute, with Hypoxemia) ? ? This patient has a high probability of sudden, clinically significant deterioration, which requires the highest level of physician preparedness to intervene urgently. ?I managed/supervised life or organ supporting interventions that required frequent physician assessment. ?I devoted my full attention to the direct care of this patient for the amount of time indicated below. ?Time I spent with family or surrogate(s) is included only if the patient was incapable of providing the necessary information or participating in medical decision making. ?Time devoted to teaching is not included. ? Critical Care Time devoted to this patient is ?30?minutes ? SIGNATURE: Herman Sutton MD PATIENT NAME: Naveen Akins DATE: January 21, 2018 TIME: 9:06 AM PROGRESS Observed: 01/21/2018 Status: COMPLETED Source: [place] 6:32 AM [facility] OTHER CAMPUS REPOSITORY O ID: [id number] Author: Dionicio (Luther Stevens Service: Vascular Surgery Author Type: Resident Type: Progress Notes Filed: 01/21/2018 9:01 AM Note Text: Vascular Surgery Progress Note SERVICE DATE: 01/21/2018 Vascular AND Thoracic Surgery Service Pager: For questions or concerns Mon-Fri 6a-5p please page [phone]. After 5pm and on Weekends and Holidays, please page [phone] if in ICU or [phone] if on RNF. Subjective SUBJECTIVE: NAEON, resp status improving s/p Thoracentesis FiO2 40% from 90% yesterday Diet: DIET NPO Parenteral Nutrition - Adult Objective OBJECTIVE: Vitals: Temp (24hrs), Av ?C (96.8 ?F), Min:35.1 ?C (95.2 ?F), Max:37 ?C (98.6 ?F) BP 132/57 Pulse 75 Temp 37 ?C (98.6 ?F) (Axillary) Resp 24 Ht 172.7 cm (5' 8) Wt 94.1 kg (207 lb 7.3 oz) SpO2 97% BMI 31.54 kg/m? O2 Therapy: Ventilator IANDO: Date 01/20/18 07 - 01/21/18 0659 01/21/18 07 - 01/22/18 0659 Shift 4311-8202 6616-7775 1055-6068 24 Hour Total 0363-1938 0854-7570 1342-2502 24 Hour Total I N T A K E IV 37 138 539.9 714.9 NS 0.9% 10 31 57 98 Fentanyl Volume 5 23.5 61.5 90 Dexmedetomidine IV 25.5 75 100.5 NORepinephrine Volume 3 30 73.4 106.4 Propofol IV 19 28 73 120 Ampicillin/Sulbactam (Unasyn) IV 200 200 TPN/PPN 103 237 520 860 TPN 103 237 520 860 Shift Total 584 218 1617.9 1574.9 O U T P U T Urine Urine Incontinence/Not Saved 2 x 2 x Tubes 100 9125 643 8609 Drain/Tube Output (Drain/Tube 01/19/18 1015 Midline Abdomen) 50 849 506 7632 Drain/Tube Output (Drain/Tube 01/12/18 Fecal Management System) 0 0 0 0 Output (GI Feed/Drain 01/12/18 0100) 50 150 50 250 Dialysis 2039 2357 2498 6895 Dialysis Output (Ultrafiltration) 2039 2357 2498 6895 Shift Total 2140 3407 2648 8195 Weight (kg) 96.7 96.7 94.1 94.1 94.1 94.1 94.1 94.1 MEDICATIONS Current Facility-Administered Medications: dexmedetomidine 400 mcg in NaCl 0.9% 100 mL (PRECEDEX) 0.2- 0.7 mcg/kg/hr INTRAVENOUS CONTINUOUS Parenteral Nutrition - Adult INTRAVENOUS ONCE TPN (1800 START) carboxymethylcellulose sodium 1-2 Drop (CELLUVISC) 1-2 Drop BOTH EYES PRN polyvinyl alcohol-povidone 1.4-0.6 % 1 Drop (REFRESH) 1 Drop BOTH EYES QID PRN propofol infusion (DIPRIVAN) 0-15 mcg/kg/min (Adjusted) INTRAVENOUS CONTINUOUS hydrocortisone sodium succinate (PF) 50 mg injection (Solu- CORTEF) 50 mg INTRAVENOUS q 8 H heparin 1,000 unit/mL 4,000 Units injection 4,000 Units INTRAVENOUS 3 Times weekly with dialysis heparin 5,000 Units injection 5,000 Units SUBCUTANEOUS q 12 H ampicillin-sulbactam 3 g in NaCl 0.9% 100 mL MB+ (UNASYN) 3 g INTRAVENOUS q 6 H NaCl 0.9% 1,000 mL iv bolus 1,000 mL INTRAVENOUS PRN DIALYSIS prismaSOL BGK 4 K / 2.5 mEq Ca/Liter 5,000 mL 5,000 mL HEMODIALYSIS continuous (no dispense) prismaSOL BGK 4 K / 2.5 mEq Ca/Liter 5,000 mL 5,000 mL HEMODIALYSIS continuous (no dispense) prismaSOL BGK 4 K / 2.5 mEq Ca/Liter 5,000 mL 5,000 mL HEMODIALYSIS continuous (no dispense) dextrose 40 % 15 g 15 g ORAL PRN Or glucagon 1 mg injection (GLUCAGEN) 1 mg INTRAMUSCULAR PRN Or dextrose 50% in water 25 mL syringe 12.5 g INTRAVENOUS PRN magnesium sulfate 1 g in D5W 100 mL 1 g INTRAVENOUS PRN magnesium sulfate in water 2 g in sterile water 50 ml 2 g INTRAVENOUS PRN fentaNYL 20 mcg/mL iv infusion in NaCl 0.9% 100 mL 0-100 mcg/hr INTRAVENOUS CONTINUOUS pantoprazole 40 mg injection (PROTONIX) 40 mg INTRAVENOUS DAILY (6 AM) NORepinephrine 16 mg in D5W 250 mL (LEVOPHED) 0-30 mcg/min INTRAVENOUS CONTINUOUS Chlorhexidine Gluconate 0.12 % 15 mL (PERIDEX) 15 mL ORAL q 12 H Labs: Recent Labs 01/21/18 0430 01/20/18 2210 01/20/18 1620 01/20/18 0345 01/18/18 1000 NA 136 -- -- -- 135* < > -- K 4.4 -- -- -- 4.5 < > -- CHLOR 103 -- -- -- 104 < > -- CO2 23 -- -- -- 21 < > -- BUN 42* -- -- -- 36* < > -- CREAT 1.85* -- -- -- 1.84* < > -- GLUC 209* -- -- -- 186* < > -- ANION 14 -- -- -- 15 < > -- CA 7.1* -- -- -- 6.8* < > -- MG 2.7* -- -- -- 2.6 < > -- P 4.0 -- -- -- 5.2* < > -- ALB -- -- -- -- 1.5* -- 1.7* AST -- -- -- -- 130* -- 65* ALT -- -- -- -- 57 -- 18 ALKPHOS -- -- -- -- 190* -- 124* TBILI -- -- -- -- 6.0* -- 4.3* WBC 19.46* -- 19.70* < > 14.99* < > 9.65* HB 9.1* -- 9.0* < > 9.4* < > 10.1* HCT 26.7* -- 27.1* < > 27.1* < > 30.7* PLT 100* -- 94* < > 97* < > 54* PH 7.424 7.421 7.391 < > 7.405 < > -- PCO2 31.9* 31.2* 34.2* < > 33.0* < > -- PO2 89.8 69.0* 228.3* < > 65.4* < > -- BE -3.3 -4.0 -4.1 < > -3.9 < > -- < > = values in this interval not displayed. Exam: GENERAL: No distress NEURO: pupils reactive/sluggish, not following commands, withdrawing and opening eyes to pain HEENT: normocephalic, atraumatic, +scleral icterus LUNGS: Unlabored Breathing on Ventilator CARDIAC: Regular rate and rhythm as above, Levo @ 10 ABDOMEN: Soft, mild D, NT, no PS, Vac intact w SS output EXTREMITIES: MAK, No deformities, +Anasarca, palpable pulses SKIN: Skin color, texture, turgor normal, No rashes or lesions ASSESSMENT AND PLAN: Active Hospital Problems Diagnosis Date Noted - Ruptured abdominal aortic aneurysm (AAA) ([facility]) 01/12/2018 - Obesity, Class I, BMI 30-34.9 01/16/2018 - Encephalopathy 01/13/2018 - DIC (disseminated intravascular coagulation) ([facility]) 01/12/2018 - Hemorrhagic shock ([facility]) 01/12/2018 - Acute respiratory failure ([facility]) 01/12/2018 - Cardiac arrest ([facility]) 01/12/2018 - Hypernatremia 01/12/2018 - Hypokalemia 01/12/2018 - Hypomagnesemia 01/12/2018 - Hypophosphatemia 01/12/2018 - Hyperchloremia 01/12/2018 - AAA (abdominal aortic aneurysm, ruptured) ([facility]) 01/12/2018 Overview Note: Added automatically from request for surgery [id number] 77 year old male with Ruptured AAA s/p Emergent Repair, takeback washout, repair of serosal tears x2, on 01/12, hemorrhagic shock, acute resp failure with pulm edema, TERENCE, SVT, s/p Third Look Laparotomy and?washout on 01/14, fourth look, washout, vac change on 01/16, Partial fascial closure on 01/19 ? - Vent mgmt per MICU - NPO/TPN --> likely start TFs today after OR - Wean Levo as able - Amio off - Acute blood loss and dilutional anemia and thrombocytopenia - monitor, transfuse prn - Cont Abthera VAC - TERENCE -->?CVVHD per?Nephro, diurese as tolerates - CXR greatly improved s/p R Thoracentesis - Unasyn empirically per MICU - Hypocalcemia?- replacing - cont scrotal support - Hyperbilirubinemia - likely transfusion related, consider RUQ US if fevers develop and LFTs/jaundice ?worsen - Solucortef 50mg q8h per MICU - Leukocytosis - reactive and steroid related, afebrile, monitor ? OR today for possible fascial closure Possible L Thoracentesis today ?? Assessment and plan discussed with attending: Dr. De Anda SIGNATURE: Dionicio Stevens MD PATIENT NAME: Naveen Akins DATE: January 21, 2018 TIME: 6:32 AM Vascular AND Thoracic Surgery Service Pager: For questions or concerns Tue-Tue 6a-5p please page [phone]. After 5pm and on Weekends and Holidays, please page [phone] if in ICU or [phone] if on RNF. CHEST 1 VIEW Observed: 01/21/2018 Status: F Source: [facility] 5:19 AM HEALTH SYSTEM REPOSITORY Performed at [facility] APPROVED BY: Megan Duarte MD Exam: Portable view of the chest dated 01/21/2018 05:10. Indication: Respiratory Failure. Comparison: 01/20/2018. Findings: Support devices remain unchanged. Parenchymal consolidation and small left pleural effusion are grossly similar to prior study. No visible pneumothorax. Cardiac and mediastinal contours remain unchan ged. No acute osseous abnormalities are appreciated. IMPRESSION: Stable portable chest. HEMOGRAM/DIFF Collected: 01/21/2018 Status: F Source: [facility] 4:30 AM HEALTH SYSTEM REPOSITORY TYPE CODE TESTS RESULT OUT OF REFERENCE UNITS RANGE LAB WBC(LOINC) 4.23-9.07 thou/cmm WBC High 19.46 LAB RBC(LOINC) 4.63-6.08 mil/cmm Low RBC 3.12 LAB HGB(LOINC) 13.7-17.5 g/dL Low Hgb 9.1 LAB HCT(LOINC) 40.1-51.0 % Low Hct 26.7 LAB MCV(LOINC) 83.2-95.6 fl MCV 85.6 LAB MCH(LOINC) 25.7-32.2 pg MCH 29.2 LAB MCHC(LOINC 32.3-36.5 % ) MCHC 34.1 LAB RDW(LOINC) 11.6-14.4 % RDW High 19.9 LAB RDWSD(LOIN 36.1-45.8 fl C) RDW SD High 57.2 LAB PLT(LOINC) 141-365 thou/cmm Low Platelet 100 LAB NRBCR(LOIN 0.0-0.2 % C) High Nucleated RBC % 1.0 LAB NRBCA(LOIN 0.00-0.01 thou/cmm C) High Nucleated RBC 0.20 Absolute LAB SEG(LOINC) % Seg Neutrophil 85.9 LAB IGRE(LOINC % ) Immature Grans 7.00 LAB LYMPH(LOIN % C) Lymphocyte 4.1 LAB MNO(LOINC) % Monocyte 2.7 LAB EOSIN(LOIN % C) Eosinophil 0.1 LAB BASO(LOINC % ) Basophil 0.2 LAB SEGN(LOINC 1.78-5.38 thou/cmm ) Abs. High Neut (ANC) 16.72 LAB IGAB(LOINC 0.00-0.05 thou/cmm ) Abs High Immature Grans 1.36 LAB LYMN(LOINC 0.84-2.85 thou/cmm ) Low Abs. Lymph 0.80 LAB MONON(LOIN 0.30-0.82 thou/cmm C) Abs. [place]incon 0.53 LAB EOSN(LOINC 0.04-0.54 thou/cmm ) Low Abs. Eosin 0.02 LAB BASON(LOIN 0.01-0.08 thou/cmm C) Abs. Baso 0.04 Result Comment: Smear scanned; tech agrees with automated differential Performed By: #### [id number] #### [place] [address] MAGNESIUM BLOOD Collected: 01/21/2018 Status: F Source: [facility] 4:30 AM [place] [facility] REPOSITORY TYPE CODE TESTS RESULT OUT OF REFERENCE UNITS RANGE LAB MAG(LOINC) 1.6-2.6 mg/dL High Magnesium Blood 2.7 Performed By: #### MAG #### [place] [address] PHOSPHORUS BLOOD Collected: 01/21/2018 Status: F Source: [facility] 4:30 AM HEALTH SYSTEM REPOSITORY TYPE CODE TESTS RESULT OUT OF REFERENCE UNITS RANGE LAB PHOS(LOINC 2.5-4.9 mg/dL ) Phosphorus Blood 4.0 Performed By: #### PHOS #### [place] [address] BASIC PANEL Collected: 01/21/2018 Status: F Source: [facility] 4:30 AM HEALTH SYSTEM REPOSITORY TYPE CODE TESTS RESULT OUT OF REFERENCE UNITS RANGE LAB NA(LOINC) 136-145 mEq/L Sodium Blood 136 LAB K(LOINC) 3.5-5.1 mEq/L Potassium Blood 4.4 LAB CL(LOINC) 98-107 mEq/L Chloride Blood 103 LAB CO2(LOINC) 21-32 mEq/L CO2 Blood 23 LAB GLU(LOINC) 70-99 mg/dL Glucose High Blood 209 LAB BUN(LOINC) 7-18 mg/dL BUN High Blood 42 LAB CREA(LOINC 0.67-1.17 mg/dL ) High Creatinine Blood 1.85 LAB CA(LOINC) 8.5-10.1 mg/dL Low Calcium Blood 7.1 LAB ANGAP(LOIN 8-16 C) Anion Gap 14 Performed By: #### P8 #### [place] [address] OPERATIVE NO Observed: 01/21/2018 Status: COMPLETED Source: [place] 12:00 AM CLINIC OTHER CAMPUS REPOSITORY HNO ID: [id number] Author: Costa Miguel Service: Gastroenterology Surgery Author Type: Physician Type: Operative Report Filed: 01/22/2018 1:54 PM Note Text: [facility] - Operative Report SURGEON: Costa Miguel MD PATIENT NAME: NAVEEN AKINS CSN: [id number] DATE OF SURGERY: 01/21/2018 DATE OF : 1940 SEX/AGE: M/77 PATIENT TYPE: I HOSP SV: LICO LOCATION: [id number] DATE OF SURGERY: 01/21/2018 SURGEON: Costa Miguel MD PREOPERATIVE DIAGNOSIS: Open abdomen. POSTOPERATIVE DIAGNOSIS: Open abdomen. PROCEDURE: Limited abdominal exploration and closure of wound with abdominal wound with retention sutures. VISUAL ARTS TEACHER: Dr. Peralta and Dr. Tristen Luz. ANESTHESIA: General. INDICATIONS: Open abdomen. Risks, benefits, and options discussed. DETAILS OF PROCEDURE: The patient was taken to the operating room, laid supine. General anesthesia was employed. He was prepped and draped in usual fashion. We removed the ABThera wound VAC and inspected the abdominal cavity in limited fashion as he is already partially closed. There was no evidence of any purulence or any other issue. We took #1 looped PDS inserted inferior aspect of incision, another one superiorly and sutured towards the center of the abdomen. Two additional retention sutures of #5 Ethibond were placed in a mattress type fashion. The abdomen was closed in this fashion and the wound VAC was placed. X- ray was obtained prior to closing because the initial instrument count was not done because the patient was a very emergent case and x-ray was negative for any instruments. The patient tolerated the procedure well. Costa Miguel MD Surgery WJC:modl /[id number] BLOOD GAS ARTERIAL Collected: 01/20/2018 Status: F Source: [facility] 10:10 PM HEALTH SYSTEM REPOSITORY TYPE CODE TESTS RESULT OUT OF REFERENCE UNITS RANGE LAB FIO2(LOINC % ) FIO2 50 LAB TEMPA(LOIN C) Temperature 36.4 LAB PH(LOINC) 7.350-7.450 pH Arterial 7.421 LAB PCO2(LOINC 36.0-46.0 mm Hg ) Low PCO2 Arterial 31.2 LAB PO2(LOINC) 85.0-96.0 mm Hg Low PO2 Arterial 69.0 LAB HCO3A(LOIN 22.0-26.0 mEq/L C) Low HCO3- 19.9 LAB O2%A(LOINC 95.0-98.0 % ) O2% Sat Arterial 95.1 LAB BASEX(LOIN -2.5 to 2.5 mEq/L C) Base Excess -4.0 Performed By: #### ABG #### [place] [address] BLOOD GAS ARTERIAL Collected: 01/20/2018 Status: F Source: [facility] 4:20 PM HEALTH SYSTEM REPOSITORY TYPE CODE TESTS RESULT OUT OF REFERENCE UNITS RANGE LAB FIO2(LOINC % ) FIO2 Value Not Given LAB TEMPA(LOIN C) Temperature 37.0 LAB PH(LOINC) 7.350-7.450 pH Arterial 7.391 LAB PCO2(LOINC 36.0-46.0 mm Hg ) Low PCO2 Arterial 34.2 LAB PO2(LOINC) 85.0-96.0 mm Hg PO2 High Arterial 228.3 LAB HCO3A(LOIN 22.0-26.0 mEq/L C) Low HCO3- 20.3 LAB O2%A(LOINC 95.0-98.0 % ) O2% Sat High Arterial 99.3 LAB BASEX(LOIN -2.5 to 2.5 mEq/L C) Base Excess -4.1 Performed By: #### ABG #### [facility] [address] [place] [address] HEMOGRAM Collected: 01/20/2018 Status: F Source: [facility] 4:20 PM HEALTH SYSTEM REPOSITORY TYPE CODE TESTS RESULT OUT OF REFERENCE UNITS RANGE LAB WBC(LOINC) 4.23-9.07 thou/cmm WBC High 19.70 LAB RBC(LOINC) 4.63-6.08 mil/cmm Low RBC 3.11 LAB HGB(LOINC) 13.7-17.5 g/dL Low Hgb 9.0 LAB HCT(LOINC) 40.1-51.0 % Low Hct 27.1 LAB MCV(LOINC) 83.2-95.6 fl MCV 87.1 LAB MCH(LOINC) 25.7-32.2 pg MCH 28.9 LAB MCHC(LOINC 32.3-36.5 % ) MCHC 33.2 LAB RDW(LOINC) 11.6-14.4 % RDW High 19.8 LAB RDWSD(LOIN 36.1-45.8 fl C) RDW High SD 59.0 LAB PLT(LOINC) 141-365 thou/cmm Low Platelet 94 LAB MPV(LOINC) 8.7-12.0 fl MPV High 12.3 LAB NRBCR(LOIN 0.0-0.2 % C) High Nucleated RBC % 0.8 LAB NRBCA(LOIN 0.00-0.01 thou/cmm C) High Nucleated RBC 0.16 Absolute Performed By: #### CBC1 #### [facility] [address] [place] [address] US THORACENTESIS WITH Observed: 01/20/2018 Status: F Source: [facility] IMAGING GUIDANCE 00856 2:53 PM HEALTH SYSTEM REPOSITORY Performed at [facility] APPROVED BY: Cely Correa CNP EXAM TITLE: ULTRASOUND GUIDED RIGHT THORACENTESIS DATE: 01/20/2018 14:00 COMPARISON: Chest x-ray dated 01/20/2018 CLINICAL INDICATION/HISTORY: Bilateral pleural effusions TECHNIQUE: Informed consent was obtained from the patient's . The patient was placed in a lateral recumbent position and ultrasound interrogated the right hemithorax. An appropriate skin entrance site was identified, prepped, and anesthetized. Under ultrasound guidance a 5-Chinese Yueh needle was passed into the pleural space and fluid was aspirated with the aid of a vacuum bottle. A specimen w as sent for laboratory analysis. An image was captured documenting the needle in the pleural space. FINDINGS: Ultrasound reveals a large amount of fluid. 750 cc of straw-colored fluid was obtained. IMPRESSION: Technically successful ultrasound-guided right thoracentesis yielded 750 cc of straw-colored fluid which was sent for laboratory analysis. A follow-up chest radiograph will be obtained to determine the presence or absence of pneumothorax. CHEST 1 VIEW Observed: 01/20/2018 Status: F Source: [facility] 2:52 PM HEALTH SYSTEM REPOSITORY Performed at [facility] APPROVED BY: Skip Hickey MD EXAM TITLE: CHEST 1 VIEW DATE: 01/20/2018 14:46 COMPARISON: Chest x-ray 01/20/2018 CLINICAL INDICATION/HISTORY: Status post thoracentesis. TECHNIQUE: An AP upright view of the chest is presented. FINDINGS: Endotracheal tube present with its tip 5.3 cm above the kianna. Left IJ central venous catheter with its tip at the left brachiocephalic vein superior vena cava junction. Right IJ central line with it s tip profiling the right atrium. NG tube coursing below the diaphragm. The cardiomediastinal silhouette is unremarkable. No pneumothorax. No significant residual right pleural effusion. Small to moderate-sized left pleural effusion. There are patchy infiltrates in both lungs left greater than right improved from previous chest x-ray. The pulmonary vessels are within normal limits. The bony structures are intact. IMPRESSION: No pneumothorax. No significant residual right pleural effusion. Small to moderate-sized left pleural effusion. Patchy infiltrates in both lungs left greater than right improved in appearance from prior chest x-ray. BRIEF OP NOT Observed: 01/20/2018 Status: COMPLETED Source: [place] 2:31 PM CLINIC OTHER CAMPUS REPOSITORY HNO ID: [id number] Author: Cely Correa Service: (none) Author Type: Nurse Practitioner Type: Brief Op Note Filed: 01/20/2018 2:32 PM Note Text: THORACENTESIS NOTE SERVICE DATE: 01/20/2018 SERVICE TIME: 2:15 PM PROCEDURE: Right thoracentesis with Ultrasound guidance PICKING BELT OPERATOR: Cely Correa APRN.IRENE VISUAL ARTS TEACHER: None PRE - PROCEDURE DIAGNOSIS: Pleural effusion POST PROCEDURE DIAGNOSIS: Pleural effusion INDICATION: Diagnostic and Therapeutic SAFE PRACTICE: Informed consent obtained and filed in patient's chart. SAFE PRACTICE Sign in Communication: Completed. Time Out: The procedural team confirmed the Correct Patient, the Correct Procedure, the Correct Site and the Correct Position (if applicable) during the audible time out: Completed. Sign Out Communication: Completed. PROCEDURE START TIME: 2:20 PM IMAGING GUIDANCE: Ultrasound was used. Images were recorded. ULTRASOUND FINDINGS: The Right chest was scanned using ultrasound. A moderate sized effusion was seen. ANESTHESIA: Local, using 10ml of 1% Lidocaine. SEDATION: No PROCEDURE DETAIL: After scanning the chest the appropriate site for thoracentesis was marked and was prepped using Chlorhexidine Gluconate Local anesthesia was administered. A standard thoracentesis needle and catheter were advanced into the right fluid collection without any difficulty. Once the fluid collection was found, the catheter was advanced further into the pleural space, the needle was removed, and drainage was initiated using a vacuum bottle method. Once drainage was completed the catheter was removed and the site was bandaged. The fluid was sent to the lab for further analysis. FLUID COLOR: Serous TOTAL FLUID REMOVED: 750mL PROCEDURE TERMINATED DUE TO: No further drainage IMMEDIATE COMPLICATIONS: None POST PROCEDURE ULTRASOUND: not done IMPRESSION: Completed Right thoracentesis with approximately 750mL of fluid withdrawal. Estimated blood loss: Minimal (Less Than 25 mL). I was present during the entire procedure and participated in all aspects of it. SIGNATURE: Cely Correa APRN.CNP PATIENT NAME: Naveen Akins DATE: January 20, 2018 TIME: 2:31 PM PAGER/CONTACT #: [id number] BF CELL COUNT/DIFF Collected: 01/20/2018 Status: F Source: [facility] 2:25 PM HEALTH SYSTEM REPOSITORY TYPE CODE TESTS RESULT OUT OF REFERENCE UNITS RANGE LAB BFSIT(LOIN C) Specimen type Pleural LAB BFAPP(LOIN C) Appearance Clear LAB BFCOL(LOIN C) Body Fluid Color Yellow LAB BFRBC(LOIN 0 /cmm C) BF/RBC 470 LAB BFNUC(LOIN 0 /cmm C) BF/Nucleated 53 Cells LAB BFSEG(LOIN % C) BF/Segs 16 LAB BFLYM(LOIN % C) BF/Lymphs 32 LAB BFMON(LOIN % C) BF/Monos 30 LAB BFOTH(LOIN % C) BF/Others 22 LAB BFINT(LOIN C) Body Fluid Interp See below LAB PATH#(LOIN C) Interp. by: See below Result Comment: Jack Hernandez M.D., Pathologist Macrophages and reactive mesothelial cells. Negative for malignant cells. Performed By: #### BFCD #### [place] [address] PH, BODY FLUID Collected: 01/20/2018 Status: F Source: [facility] 2:25 PM HEALTH SYSTEM REPOSITORY TYPE CODE TESTS RESULT OUT OF REFERENCE UNITS RANGE LAB BFTYP(LOIN C) Specimen Type Pleural LAB PHBFL(LOIN C) pH, Body Fluid 7.560 Performed By: #### PHBF #### [place] [address] Observed: 01/20/2018 Status: F Source: [facility] 2:25 PM HEALTH SYSTEM FLUID REPOSITORY Test performed at [facility] No growth No organisms seen Performed By: #### C_BF #### [place] [address] MISC. TEST Collected: 01/20/2018 Status: F Source: [facility] 2:25 PM HEALTH SYSTEM REPOSITORY TYPE CODE TESTS RESULT OUT OF REFERENCE UNITS RANGE LAB GO3X(LOINC) Test Name Protein, Fluid LAB GO1X(LOINC) CCF Order BFPROT Code LAB GO2X(LOINC) Misc. Test SEE BELOW Result Result Comment: Protein, Body Fluid 1.9 AB SEEC g/dL Serous fluids: Effusions are the accumulation of clinically detected fluid in any of the serous cavities. Effusions are further into transudates and exudates, which aid in determining the etiology of the effusion. Transudate: Body fluid total protein measurement < 3.0 g/dL. A ratio of serous fluid total protein to a concurrent serum total protein < 0.5 indicates a transudate. Exudate: Body fluid total protein measurement >= 3.0 g/dL. A ratio of serous fluid total protein to a concurrent serum total protein >= 0.5 indicates an exudate. Reference: 1. CLSI. Analysis of Body Fluids in Clinical Chemistry Approved Guideline. CLSI document C49A. WILLIE Pacheco: Clinical Laboratory Standards [place]: 2007. This test was developed and its performance characteristics determined by [facility] [place] ([facility]). It has not been cleared or approved by the FDA. [facility] is regulated under CLIA as qualified to perform high-complexity testing. This test is used for clinical purposes. It should not be regarded as investigational or for research. Performing Laboratory: [facility] [address] [place] [address] Performed By: #### GOX #### [place] [address] Observed: 01/20/2018 Status: F Source: [facility] [employer] 2:25 PM HEALTH SYSTEM (TB) REPOSITORY Test performed at [facility] No acid fast bacilli cultured No acid fast bacilli seen Performed By: #### C_AFB #### [place] [address] Observed: 01/20/2018 Status: F Source: [facility] 2:25 PM HEALTH SYSTEM REPOSITORY Test performed at [facility] No fungus (yeast or mold) cultured Performed By: #### C_FUN #### [place] [address] CYTOLOGY, MEDICAL Observed: 01/20/2018 Status: F Source: [facility] 2:25 PM HEALTH SYSTEM REPOSITORY Test performed at [place] [address] NAME: NAVEEN AKINS REQUESTING: VENKAT PANIAGUA M.D. DIAGNOSIS RIGHT PLEURAL FLUID - NEGATIVE FOR MALIGNANT CELLS. NARRATIVE REACTIVE MESOTHELIAL CELLS, FEW HISTIOCYTES, FEW LYMPHOCYTES. SPECIMEN: A) PLB, PLEURAL FLUID W/CELL BLOCK RIGHT Description: Materials Prepared & Examined: Volume: ......... 730 # of Cell Blocks: .......... 1 Color: ............ Yellow # of Monolayers: .......... 1 Other: ............. SL # of Smear slides: ......... 1 CLOUDY # of Slides: ................. 4 Electronically Signed: 01/24/2018 Screened by: YARA MARTINS(ASCP) Signed Out by: DORIE AMAYA M.D., PATHOLOGIST Printed on: January 24, 2018 Page 1 of 1 Performed By: #### CYTOM #### [place] [address] PROGRESS Observed: 01/20/2018 Status: COMPLETED Source: [place] 1:29 PM CLINIC OTHER CAMPUS REPOSITORY HNO ID: [id number] Author: Paulo (Meter Repair Shop Supervisor) Radu Service: Critical Care Author Type: Nurse Specialist Type: Progress Notes Filed: 01/20/2018 1:40 PM Note Text: MICU - PROGRESS NOTE SERVICE DATE: 01/20/2018 SERVICE TIME: 1:29 PM Admission Date: 01/12/2018 AGE: [age] year old LOS: 8 days Subjective REASON FOR ICU ADMISSION: Respiratory Failure Objective PROBLEMS: ACTIVE PROBLEM LIST Gallstone Pancreatitis Ruptured Abdominal Aortic Aneurysm (Aaa) (Hcc) Dic (Disseminated Intravascular Coagulation) (Hcc) Hemorrhagic Shock (Hcc) Acute Respiratory Failure (Hcc) Cardiac Arrest (Hcc) Hypernatremia Hypokalemia Hypomagnesemia Hypophosphatemia Hyperchloremia Encephalopathy Aaa (Abdominal Aortic Aneurysm, Ruptured) (Hcc) Obesity, Class I, Bmi 30-34.9 PAST MEDICAL HISTORY Diagnosis Date - DIC (disseminated intravascular coagulation) (HCC) 01/12/2018 PAST SURGICAL HISTORY Procedure Laterality Date - LAP CHOLECYSTECT/CHOLANGIOGRAPHY 05-28-09 - REPAIR UMBILICAL NATAN,5+Y/O,REDUC 05-28-09 Social History Marital status: Spouse name: Shelly Years of education: 11 Number of children: 4 Occupational History 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 BP 132/57 Pulse 75 Temp (Src) 96.8 (Axillary) Resp 19 Ht 5' 8 (1.73m) Wt 213 lb 3 oz (96.7kg) SpO2 95% BMI 32.42 kg/(m2). Temp (24hrs), Av.8 ?C (96.5 ?F), Min:35 ?C (95 ?F), Max:36.6 ?C (97.9 ?F) NET FLUID BALANCE Intake/Output Summary (Last 24 hours) at 01/20/18 1329 Last data filed at 01/20/18 1200 Gross per 24 hour Intake 4321 ml Output 4618 ml Net -297 ml MEDICATIONS Current Facility-Administered Medications: dexmedetomidine 400 mcg in NaCl 0.9% 100 mL (PRECEDEX) 0.2- 0.7 mcg/kg/hr INTRAVENOUS CONTINUOUS carboxymethylcellulose sodium 1-2 Drop (CELLUVISC) 1-2 Drop BOTH EYES PRN Parenteral Nutrition - Adult INTRAVENOUS ONCE TPN (1800 START) polyvinyl alcohol-povidone 1.4-0.6 % 1 Drop (REFRESH) 1 Drop BOTH EYES QID PRN propofol infusion (DIPRIVAN) 0-15 mcg/kg/min (Adjusted) INTRAVENOUS CONTINUOUS hydrocortisone sodium succinate (PF) 50 mg injection (Solu- CORTEF) 50 mg INTRAVENOUS q 8 H heparin 1,000 unit/mL 4,000 Units injection 4,000 Units INTRAVENOUS 3 Times weekly with dialysis heparin 5,000 Units injection 5,000 Units SUBCUTANEOUS q 12 H ampicillin-sulbactam 3 g in NaCl 0.9% 100 mL MB+ (UNASYN) 3 g INTRAVENOUS q 6 H NaCl 0.9% 1,000 mL iv bolus 1,000 mL INTRAVENOUS PRN DIALYSIS prismaSOL BGK 4 K / 2.5 mEq Ca/Liter 5,000 mL 5,000 mL HEMODIALYSIS continuous (no dispense) prismaSOL BGK 4 K / 2.5 mEq Ca/Liter 5,000 mL 5,000 mL HEMODIALYSIS continuous (no dispense) prismaSOL BGK 4 K / 2.5 mEq Ca/Liter 5,000 mL 5,000 mL HEMODIALYSIS continuous (no dispense) dextrose 40 % 15 g 15 g ORAL PRN Or glucagon 1 mg injection (GLUCAGEN) 1 mg INTRAMUSCULAR PRN Or dextrose 50% in water 25 mL syringe 12.5 g INTRAVENOUS PRN magnesium sulfate 1 g in D5W 100 mL 1 g INTRAVENOUS PRN magnesium sulfate in water 2 g in sterile water 50 ml 2 g INTRAVENOUS PRN fentaNYL 20 mcg/mL iv infusion in NaCl 0.9% 100 mL 0-100 mcg/hr INTRAVENOUS CONTINUOUS pantoprazole 40 mg injection (PROTONIX) 40 mg INTRAVENOUS DAILY (6 AM) NORepinephrine 16 mg in D5W 250 mL (LEVOPHED) 0-30 mcg/min INTRAVENOUS CONTINUOUS Chlorhexidine Gluconate 0.12 % 15 mL (PERIDEX) 15 mL ORAL q 12 H Lines, Drains, and Airways Line Dialysis / Apheresis Double Lumen 01/13/18 1136 Left Neck 7 days Arterial Line 01/19/18 0840 Arterial Line Right Radial 1 day Central Line Quadruple Lumen 01/19/18 1056 Right Neck 1 day Drain Drain/Tube 01/12/18 Fecal Management System 8 days GI Feed/Drain 01/12/18 0100 8 days Drain/Tube 01/19/18 1015 Midline Abdomen 1 day Airway Airway Endotracheal Tube 01/12/18 1138 8 days PHYSICAL EXAM PERFORMED: Cardiovascular: Regular tachycardia Respiratory: Reduced breath sounds bilat %FIO2 Min: 80 Max: 100 Abdomen: Distended Wound vac in place-draining sanguinous drainage Extremities: Edema- Yes Generalized edema Neurologic: Sedated Unresponsive Respiratory/Nursing Documentation: O2 Therapy: Ventilator (01/20/18 124) Invasive Ventilator Mode: Pressure Regulated Volume Control (01/20/18 124) Set Ventilator Respiratory Rate (BPM): 24 (01/20/18 0757) Total Respiratory Rate (BPM): 28 (01/20/18 1243) Tidal Volume Set (mL): 480 (01/20/18 1243) Exhaled Tidal Volume (mL): 358 (01/20/18 1243) Minute Volume (L): 18.1 (01/20/18 1243) Peak Inspiratory Pressure (cm H2O): 13 (01/20/18 0757) PEEP/CPAP (cm H2O): 10 (01/20/18 124) HEMODYNAMIC DATA: Reviewed NUTRITION: Enteral Feeds: pt is on TPN NPO DATA: Diagnostic tests reviewed for today's visit, films/specimens were personally reviewed by me: Most recent labs and imaging results. LABS: Recent Labs 01/20/18 1050 01/20/18 0345 WBC 17.96* 14.99* RBC 3.06* 3.18* HB 9.1* 9.4* HCT 26.1* 27.1* MCV 85.3 85.2 PLT 100* 97* GLUC -- 186* BUN -- 36* CREAT -- 1.84* NA -- 135* K -- 4.5 CHLOR -- 104 CO2 -- 21 TPROT -- 4.9* ALB -- 1.5* CA -- 6.8* ALKPHOS -- 190* TBILI -- 6.0* AST -- 130* ALT -- 57 MG -- 2.6 ABG: Recent Labs 01/20/18 1050 01/20/18 0345 01/19/18 1630 PH 7.412 7.405 7.321* PO2 66.2* 65.4* 68.2* PCO2 32.1* 33.0* 42.6 Assessment/Plan IMPRESSION: Critical Care Documentation: The patient has the following organ/system impairment(s): Respiratory failure (with Hypoxemia) 1.Acute hypoxic respiratory failure/ARDS/Bilat pleuaral effusions-remains intubated on 90% O2-plan julia thoacenteses 2. Ruptured AAA Sp repair 3.SP cardiac arrest 4.Shock-Levophed support 5. Pt is nonresponsive-even to noxious stimuli-Encephalopathy 6.Thrombocytopenia 7.Nutritional support-TPN 8.Sinus tachycardia-SVT resolved-continue amiodarone drip 9.TERENCE on CKD-on CRRT-100ml/hr 10. Fentanyl drip at 150mcg/kh for pain control This patient has a high probability of sudden, clinically significant deterioration, which requires the highest level of physician preparedness to intervene urgently. I managed/supervised life or organ supporting interventions that required frequent physician assessment. I devoted my full attention to the direct care of this patient for the amount of time indicated below. Time I spent with family or surrogate(s) is included only if the patient was incapable of providing the necessary information or participating in medical decision making. Time devoted to teaching is not included. Discussed with staff/patient/family Time spent providing critical care services: 40 minutes excluding procedures. SIGNATURE: Paulo Lovelace APRN.MAINTENANCE TEAM MEMBER PATIENT NAME: Naveen Akins DATE: January 20, 2018 TIME: 1:29 PM BLOOD GAS ARTERIAL Collected: 01/20/2018 Status: F Source: [facility] 10:50 AM HEALTH SYSTEM REPOSITORY TYPE CODE TESTS RESULT OUT OF REFERENCE UNITS RANGE LAB TEMPA(LOIN C) Temperature 36.5 LAB PH(LOINC) 7.350-7.450 pH Arterial 7.412 LAB PCO2(LOINC 36.0-46.0 mm Hg ) Low PCO2 Arterial 32.1 LAB PO2(LOINC) 85.0-96.0 mm Hg Low PO2 Arterial 66.2 LAB HCO3A(LOIN 22.0-26.0 mEq/L C) Low HCO3- 20.1 LAB O2%A(LOINC 95.0-98.0 % ) Low O2% Sat Arterial 94.5 LAB BASEX(LOIN -2.5 to 2.5 mEq/L C) Base Excess -4.1 LAB FIO2(LOINC % ) FIO2 90 Performed By: #### ABG #### [place] [address] HEMOGRAM Collected: 01/20/2018 Status: F Source: [facility] 10:50 PENDING SALE TO [facility] REPOSITORY TYPE CODE TESTS RESULT OUT OF REFERENCE UNITS RANGE LAB WBC(LOINC) 4.23-9.07 thou/cmm High WBC 17.96 LAB RBC(LOINC) 4.63-6.08 mil/cmm Low RBC 3.06 LAB HGB(LOINC) 13.7-17.5 g/dL Low Hgb 9.1 LAB HCT(LOINC) 40.1-51.0 % Low Hct 26.1 LAB MCV(LOINC) 83.2-95.6 fl MCV 85.3 LAB MCH(LOINC) 25.7-32.2 pg MCH 29.7 LAB MCHC(LOINC) 32.3-36.5 % MCHC 34.9 LAB RDW(LOINC) 11.6-14.4 % High RDW 19.4 LAB RDWSD(LOINC 36.1-45.8 fl ) High RDW SD 56.6 LAB PLT(LOINC) 141-365 thou/cmm Low Platelet 100 Result Comment: Smear scanned tech agrees with platelet count LAB NRBCR(LOINC) 0.0-0.2 % High Nucleated RBC % 0.9 LAB NRBCA(LOINC) 0.00-0.01 thou/cm m High Nucleated RBC Absolute 0.16 Performed By: #### CBC1 #### [facility] [address] [place] [address] CASE MANAGEM Observed: 01/20/2018 Status: COMPLETED Source: [place] 10:31 AM [facility] OTHER CAMPUS REPOSITORY HNO ID: [id number] Author: Fifi (Rn) MAGALY Coker Service: Care Management Author Type: Registered Nurse Type: Care Mgt Progress Note Filed: 01/20/2018 10:31 AM Note Text: Cont to followto assst with discharge plan. Plan for OR on Sat. 01/21 for attempted closure of surgical wound. PROGRESS Observed: 01/20/2018 Status: COMPLETED Source: [place] 10:12 AM [facility] REPOSITORY HNO ID: [id number] Author: Troy Godoy Service: Nephrology Author Type: Physician Type: Progress Notes Filed: 01/20/2018 10:13 AM Note Text: Subjective. Intubated sedated 01/20/18 0715 01/20/18 0730 01/20/18 0745 01/20/18 0757 BP: Pulse: 88 90 87 Resp: 27 26 29 30 Temp: TempSrc: SpO2: 93% 93% 96% Weight: Height: No pallor No icterus No JVD Heart - S1 S2 Lungs - b/l air entry Abdomen - soft, non distended, no organomegaly LE - +++ edema, No cyanosis No rash CMP: Glucose 186 01/20/2018 BUN 36 01/20/2018 Creatinine 1.84 01/20/2018 Sodium 135 01/20/2018 Potassium 4.5 01/20/2018 Chloride 104 01/20/2018 CO2 21 01/20/2018 Protein, Total 4.9 01/20/2018 Albumin 1.5 01/20/2018 Calcium 6.8 01/20/2018 Alkaline Phosphatase 190 01/20/2018 Bilirubin, Total 6.0 01/20/2018 AST 130 01/20/2018 ALT 57 01/20/2018 Hemoglobin (g/dL) Date Value 11/14/2017 15.0 HGB (g/dL) Date Value 01/20/2018 9.4 Hematocrit (%) Date Value 01/20/2018 27.1 WBC (thou/cmm) Date Value 01/20/2018 14.99 Platelet Count (thou/cmm) Date Value 01/20/2018 97 Assessment/ Plan 1. Acute kidney injury on chronic kidney disease stage 3. Baseline SCr is 1.36 mg/dL on 11/14/17. CKD is likely due to nephrosclerosis related to PAD. TERENCE is 2/2 ischemic ATN from shock. Pt remains anuric. Currently on low dose levophed. Increase UF rate to 100cc/hr ? 2. Shock. Likely hemorrhagic shock-massive blood loss from ruptured AAA +/- adrenal insufficiency. Continue hydrocortisone. D/w Dr. Sutton. ? 5. Ruptured AAA. s/p repair 01/12/18. Management as per vascular surgery. ? 6. Acute hypoxic respiratory failure. Ventilator dependent. Vent management as per ICU. O>I with CRRT UF. CXR reviewed PROGRESS Observed: 01/20/2018 Status: COMPLETED Source: [place] 9:22 AM [facility] OTHER CAMPUS REPOSITORY O ID: [id number] Author: Herman Sutton Service: Critical Care Author Type: Physician Type: Progress Notes Filed: 01/20/2018 9:35 AM Note Text: MICU - PROGRESS NOTE SERVICE DATE: 01/20/2018 SERVICE TIME: 9:22 AM Admission Date: 01/12/2018 AGE: [id number] year old LOS: 8 days Subjective REASON FOR ICU ADMISSION: Patient restill critically ill, intubated on mechanical ventilation now on 90% and 10 of PEEP tachypneic without vent dyssynchrony Vasopressors off CRRT on hold as the flow through HD catheter is positional Still encephalopathic and more agitated when weaning off sedation Fentanyl increase this am and propofol continued Objective PROBLEMS: ACTIVE PROBLEM LIST Gallstone Pancreatitis Ruptured Abdominal Aortic Aneurysm (Aaa) (Hcc) Dic (Disseminated Intravascular Coagulation) (Hcc) Hemorrhagic Shock (Hcc) Acute Respiratory Failure (Hcc) Cardiac Arrest (Hcc) Hypernatremia Hypokalemia Hypomagnesemia Hypophosphatemia Hyperchloremia Encephalopathy Aaa (Abdominal Aortic Aneurysm, Ruptured) (Hcc) Obesity, Class I, Bmi 30-34.9 PAST MEDICAL HISTORY Diagnosis Date - DIC (disseminated intravascular coagulation) (HCC) 01/12/2018 PAST SURGICAL HISTORY Procedure Laterality Date - LAP CHOLECYSTECT/CHOLANGIOGRAPHY 05-28-09 - REPAIR UMBILICAL NATAN,5+Y/O,REDUC 05-28-09 Social History Marital status: Spouse name: Shelly Years of education: 11 Number of children: 4 Occupational 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 BP 132/57 Pulse 87 Temp (Src) 97.5 (Temporal Artery) Resp 30 Ht 5' 8 (1.73m) Wt 213 lb 3 oz (96.7kg) SpO2 96% BMI 32.42 kg/(m2). Temp (24hrs), Av.8 ?C (96.5 ?F), Min:35 ?C (95 ?F), Max:36.6 ?C (97.9 ?F) NET FLUID BALANCE Intake/Output Summary (Last 24 hours) at 01/20/18 0922 Last data filed at 01/20/18 0700 Gross per 24 hour Intake 4321 ml Output 3471 ml Net 850 ml MEDICATIONS Current Facility-Administered Medications: carboxymethylcellulose sodium 1-2 Drop (CELLUVISC) 1-2 Drop BOTH EYES PRN Parenteral Nutrition - Adult INTRAVENOUS ONCE TPN (1800 START) polyvinyl alcohol-povidone 1.4-0.6 % 1 Drop (REFRESH) 1 Drop BOTH EYES QID PRN propofol infusion (DIPRIVAN) 0-15 mcg/kg/min (Adjusted) INTRAVENOUS CONTINUOUS hydrocortisone sodium succinate (PF) 50 mg injection (Solu- CORTEF) 50 mg INTRAVENOUS q 8 H heparin 1,000 unit/mL 4,000 Units injection 4,000 Units INTRAVENOUS 3 Times weekly with dialysis heparin 5,000 Units injection 5,000 Units SUBCUTANEOUS q 12 H ampicillin-sulbactam 3 g in NaCl 0.9% 100 mL MB+ (UNASYN) 3 g INTRAVENOUS q 6 H NaCl 0.9% 1,000 mL iv bolus 1,000 mL INTRAVENOUS PRN DIALYSIS prismaSOL BGK 4 K / 2.5 mEq Ca/Liter 5,000 mL 5,000 mL HEMODIALYSIS continuous (no dispense) prismaSOL BGK 4 K / 2.5 mEq Ca/Liter 5,000 mL 5,000 mL HEMODIALYSIS continuous (no dispense) prismaSOL BGK 4 K / 2.5 mEq Ca/Liter 5,000 mL 5,000 mL HEMODIALYSIS continuous (no dispense) dextrose 40 % 15 g 15 g ORAL PRN Or glucagon 1 mg injection (GLUCAGEN) 1 mg INTRAMUSCULAR PRN Or dextrose 50% in water 25 mL syringe 12.5 g INTRAVENOUS PRN magnesium sulfate 1 g in D5W 100 mL 1 g INTRAVENOUS PRN magnesium sulfate in water 2 g in sterile water 50 ml 2 g INTRAVENOUS PRN fentaNYL 20 mcg/mL iv infusion in NaCl 0.9% 100 mL 0-100 mcg/hr INTRAVENOUS CONTINUOUS pantoprazole 40 mg injection (PROTONIX) 40 mg INTRAVENOUS DAILY (6 AM) NORepinephrine 16 mg in D5W 250 mL (LEVOPHED) 0-30 mcg/min INTRAVENOUS CONTINUOUS Chlorhexidine Gluconate 0.12 % 15 mL (PERIDEX) 15 mL ORAL q 12 H Lines, Drains, and Airways Line Dialysis / Apheresis Double Lumen 01/13/18 1136 Left Neck 6 days Arterial Line 01/19/18 0840 Arterial Line Right Radial 1 day Central Line Quadruple Lumen 01/19/18 1056 Right Neck less than 1 day Drain Drain/Tube 01/12/18 Fecal Management System 8 days GI Feed/Drain 01/12/18 0100 8 days Drain/Tube 01/19/18 1015 Midline Abdomen less than 1 day Airway Airway Endotracheal Tube 01/12/18 1138 7 days PHYSICAL EXAM PERFORMED: General:looks in distress, sedated on fenatnyl and propofol Cardiovascular: Regular rhythm Respiratory: tachypneic, on 90% and 10 PEEP Abdomen: Soft Extremities: Edema- No Neurologic: sedated Respiratory/Nursing Documentation: O2 Therapy: Ventilator (01/20/18 075) Invasive Ventilator Mode: Pressure Regulated Volume Control (01/20/18 075) Set Ventilator Respiratory Rate (BPM): 24 (01/20/18 075) Total Respiratory Rate (BPM): 36 (01/20/18756) Tidal Volume Set (mL): 500 (01/20/18756) Exhaled Tidal Volume (mL): 561 (01/20/18756) Minute Volume (L): 18.4 (01/20/18756) Peak Inspiratory Pressure (cm H2O): 13 (01/20/18756) PEEP/CPAP (cm H2O): 10 (01/20/18756) HEMODYNAMIC DATA: Reviewed NUTRITION: Enteral Feeds: No TPN DATA: Diagnostic tests reviewed for today's visit, films/specimens were personally reviewed by me: Most recent labs and imaging results. LABS: Recent Labs 01/20/18 034 WBC 14.99* RBC 3.18* HB 9.4* HCT 27.1* MCV 85.2 PLT 97* GLUC 186* BUN 36* CREAT 1.84* NA 135* K 4.5 CHLOR 104 CO2 21 TPROT 4.9* ALB 1.5* CA 6.8* ALKPHOS 190* TBILI 6.0* AST 130* ALT 57 MG 2.6 ABG: Recent Labs 01/20/18 0345 01/19/18 1630 01/19/18 1215 PH 7.405 7.321* 7.250* PO2 65.4* 68.2* 63.5* PCO2 33.0* 42.6 53.7* CXR with worsneing pleural effusion and ARDS like picture Assessment/Plan IMPRESSION: Acute Hypoxic Respiratory Failure on mechanical ventilation ARDS/VOLUME OVERLOAD Large bilateral effusion Ruptured AAA s/p surgical repair s/p Cardiac Arrest Encephalopathy??? TERENCE on CKD?- Suspected ATN - On CRRT Lactic Acidosis - Resolved Sinus Tachycardia Thrombocytopenia SVT - Resolved MMP ? PLANS: ? Continue?mechanical ventilation With high PEEP and FiO2 of 90% CRRT to help removing fluid, if needed vasopressors to be used to help keep his balance negative Vent adjusted Fentanyl Drip for pain Propofol for sedation HD better with hydrocortisone EEG impressive for severe encephalopathy, no evidence of epileptiform activity/seizures AAA management/post-operative care per vascular surgery Continue w/ amiodarone gtt, monitor rhythm. ?No further runs of SVT Cardiology consulted, appreciate recs Continue TPN SCDs/PPI/ Heparin SQ per primary team Overall prognosis is poor, patient with multiorgan failure, ARDS/Volume overload, TERENCE on CRRT and encephalopathic and difficult wean off sedation, Recommend discussion goals of care/Palliative care ? Critical Care Documentation:?The patient has the following organ/system impairment(s): ?Circulatory shock, Complex life-threatening ?medical problem(s) and Respiratory failure (Acute, with Hypoxemia) ? ? This patient has a high probability of sudden, clinically significant deterioration, which requires the highest level of physician preparedness to intervene urgently. ?I managed/supervised life or organ supporting interventions that required frequent physician assessment. ?I devoted my full attention to the direct care of this patient for the amount of time indicated below. ?Time I spent with family or surrogate(s) is included only if the patient was incapable of providing the necessary information or participating in medical decision making. ?Time devoted to teaching is not included. ? Critical Care Time devoted to this patient is ?40?minutes SIGNATURE: Herman Sutton MD PATIENT NAME: Naveen Akins DATE: January 20, 2018 TIME: 9:22 AM PROGRESS Observed: 01/20/2018 Status: COMPLETED Source: [place] 8:49 AM [facility] REPOSITORY [facility] ID: [id number] Author: Hermelinda Ferrell Service: General Surgery Author Type: Resident Type: Progress Notes Filed: 01/20/2018 8:53 AM Note Text: Attestation signed by Costa Miguel at 01/20/2018 1:35 PM I saw and evaluated the patient. I reviewed the resident's note and agree. Costa Miguel MD, [facility], [facility] PROGRESS NOTES SERVICE DATE: 01/20/2018 Subjective SUBJECTIVE: Weaned off pressors overnight. Diet: Parenteral Nutrition - Adult DIET NPO Objective OBJECTIVE: Vitals: Temp (24hrs), Av.8 ?C (96.5 ?F), Min:35 ?C (95 ?F), Max:36.6 ?C (97.9 ?F) BP 132/57 Pulse 87 Temp 36.4 ?C (97.5 ?F) (Temporal Artery) Resp 30 Ht 172.7 cm (5' 8) Wt 96.7 kg (213 lb 3 oz) SpO2 96% BMI 32.41 kg/m? O2 Therapy: Ventilator IANDO: Date 01/19/18699 - 01/20/1859 01/20/18 07 - 01/21/18 0659 Shift 7061-8996 6260-9321 2326-0861 24 Hour Total 9516-1480 6773-8410 0382-8690 24 Hour Total I N T A K E IV 6419 461 4938 37 37 IVPB 79 79 NS 0.9% 756 41 797 10 10 Calcium IVPB 147 147 Fentanyl Volume 54 25 79 5 5 Dexmedetomidine IV 45 45 NORepinephrine Volume 78 50 128 3 3 Propofol IV 159 208 367 19 19 Ampicillin/Sulbactam (Unasyn) IV 100 200 300 TPN/PPN 0076 850 0263 103 103 TPN 3740 147 0289 103 103 Shift Total 2868 1313 4181 140 140 O U T P U T Urine Urine Incontinence/Not Saved 3 x 3 x Tubes 200 350 550 100 100 Drain/Tube Output (Drain/Tube 01/19/18 1015 Midline Abdomen) 200 350 550 50 50 Drain/Tube Output (Drain/Tube 01/12/18 Fecal Management System) 0 0 0 0 0 Output (GI Feed/Drain 01/12/18 0100) 0 0 0 50 50 Dialysis 140 1058 1507 2705 256 256 Dialysis Output (Ultrafiltration) 140 1058 1507 2705 256 256 Shift Total 140 1258 1857 3255 356 356 Weight (kg) 104.2 104.2 104.2 104.2 96.7 96.7 96.7 96.7 MEDICATIONS Current Facility-Administered Medications: carboxymethylcellulose sodium 1-2 Drop (CELLUVISC) 1-2 Drop BOTH EYES PRN Parenteral Nutrition - Adult INTRAVENOUS ONCE TPN (1800 START) polyvinyl alcohol-povidone 1.4-0.6 % 1 Drop (REFRESH) 1 Drop BOTH EYES QID PRN propofol infusion (DIPRIVAN) 0-15 mcg/kg/min (Adjusted) INTRAVENOUS CONTINUOUS hydrocortisone sodium succinate (PF) 50 mg injection (Solu- CORTEF) 50 mg INTRAVENOUS q 8 H heparin 1,000 unit/mL 4,000 Units injection 4,000 Units INTRAVENOUS 3 Times weekly with dialysis heparin 5,000 Units injection 5,000 Units SUBCUTANEOUS q 12 H ampicillin-sulbactam 3 g in NaCl 0.9% 100 mL MB+ (UNASYN) 3 g INTRAVENOUS q 6 H NaCl 0.9% 1,000 mL iv bolus 1,000 mL INTRAVENOUS PRN DIALYSIS prismaSOL BGK 4 K / 2.5 mEq Ca/Liter 5,000 mL 5,000 mL HEMODIALYSIS continuous (no dispense) prismaSOL BGK 4 K / 2.5 mEq Ca/Liter 5,000 mL 5,000 mL HEMODIALYSIS continuous (no dispense) prismaSOL BGK 4 K / 2.5 mEq Ca/Liter 5,000 mL 5,000 mL HEMODIALYSIS continuous (no dispense) dextrose 40 % 15 g 15 g ORAL PRN Or glucagon 1 mg injection (GLUCAGEN) 1 mg INTRAMUSCULAR PRN Or dextrose 50% in water 25 mL syringe 12.5 g INTRAVENOUS PRN magnesium sulfate 1 g in D5W 100 mL 1 g INTRAVENOUS PRN magnesium sulfate in water 2 g in sterile water 50 ml 2 g INTRAVENOUS PRN fentaNYL 20 mcg/mL iv infusion in NaCl 0.9% 100 mL 0-100 mcg/hr INTRAVENOUS CONTINUOUS pantoprazole 40 mg injection (PROTONIX) 40 mg INTRAVENOUS DAILY (6 AM) NORepinephrine 16 mg in D5W 250 mL (LEVOPHED) 0-30 mcg/min INTRAVENOUS CONTINUOUS Chlorhexidine Gluconate 0.12 % 15 mL (PERIDEX) 15 mL ORAL q 12 H Labs: Recent Labs 01/20/18 0345 01/19/18 1630 01/19/18 0450 01/18/18 1000 NA 135* 138 -- 139 < > -- K 4.5 4.3 -- 4.3 < > -- CHLOR 104 106 -- 105 < > -- CO2 21 22 -- 25 < > -- BUN 36* 31* -- 22* < > -- CREAT 1.84* 1.90* -- 1.63* < > -- GLUC 186* 241* -- 215* < > -- ANION 15 14 -- 13 < > -- CA 6.8* 6.5* -- 7.0* < > -- MG 2.6 -- -- 2.6 -- -- P 5.2* -- -- 2.7 -- -- ALB 1.5* -- -- -- -- 1.7* AST 130* -- -- -- -- 65* ALT 57 -- -- -- -- 18 ALKPHOS 190* -- -- -- -- 124* TBILI 6.0* -- -- -- -- 4.3* WBC 14.99* 13.43* < > 8.08 < > 9.65* HB 9.4* 9.8* < > 9.5* < > 10.1* HCT 27.1* 28.9* < > 28.5* < > 30.7* PLT 97* 91* < > 56* < > 54* PH 7.405 7.321* < > -- -- -- PCO2 33.0* 42.6 < > -- -- -- PO2 65.4* 68.2* < > -- -- -- BE -3.9 -4.3 < > -- -- -- < > = values in this interval not displayed. Exam: GENERAL: comatose LUNGS: labored breathing O2 Therapy: Ventilator CARDIAC: Regular rate and rhythm as above ABDOMEN: partially closed, abd soft, Vac intact w SS output EXTREMITIES: pitting peripheral edema SKIN: Skin color, texture, turgor normal, No rashes or lesions ASSESSMENT AND PLAN: Active Hospital Problems Diagnosis Date Noted - Ruptured abdominal aortic aneurysm (AAA) ([facility]) 01/12/2018 - Obesity, Class I, BMI 30-34.9 01/16/2018 - Encephalopathy 01/13/2018 - DIC (disseminated intravascular coagulation) ([facility]) 01/12/2018 - Hemorrhagic shock ([facility]) 01/12/2018 - Acute respiratory failure ([facility]) 01/12/2018 - Cardiac arrest ([facility]) 01/12/2018 - Hypernatremia 01/12/2018 - Hypokalemia 01/12/2018 - Hypomagnesemia 01/12/2018 - Hypophosphatemia 01/12/2018 - Hyperchloremia 01/12/2018 - AAA (abdominal aortic aneurysm, ruptured) ([facility]) 01/12/2018 Overview Note: Added automatically from request for surgery [id number] 77 year old male with Ruptured AAA s/p Emergent Repair, takeback washout, repair of serosal tears x2, on 01/12, hemorrhagic shock, acute resp failure with pulm edema, TERENCE, SVT, s/p Third Look Laparotomy and?washout on 01/14, fourth look, washout, vac change on 01/16, partial abd closure and wound vac placement 01/19 ? - weaned off pressors overnight - continued diuresis, pt tolerating well - plan OR tomorrow for attempted closure ? Assessment and plan discussed with attending: Myriam Ferrell MD General Surgery, PGY-2 January 20, 2018 8:50 AM Emergency General Surgery Service Pager: For questions or concerns Tue-Tue 6a-5p please page [phone]. After 5pm and on Weekends and Holidays, please page [phone] if in ICU or [phone] if on RNF. NURSING PROG Observed: 01/20/2018 Status: COMPLETED Source: [place] 6:31 AM [facility] REPOSITORY [facility] ID: [id number] Author: Abbi TylerRn) MAGALY Meneses Service: Nursing Author Type: Registered Nurse Type: Nursing Progress Note Filed: 01/20/2018 6:37 AM Note Text: Spoke with Dr. Winston on the phone. Pt's respirations have increased over the past couple of hours from mid to high 20's to 33-34 per min. Pt afebrile at 36.6. Order obtained to increase fentanyl gtt to 100mcg./hr. Have been slowly decreasing patients Norepi throughout the night. Currently on 4mcg/min. He stated he would look at morning chest xray. PROGRESS Observed: 01/20/2018 Status: COMPLETED Source: [place] 6:23 AM [facility] REPOSITORY [facility] ID: [id number] Author: Dionicio Stevens Service: Vascular Surgery Author Type: Resident Type: Progress Notes Filed: 01/20/2018 9:32 AM Note Text: Vascular Surgery Progress Note SERVICE DATE: 01/20/2018 Vascular AND Thoracic Surgery Service Pager: For questions or concerns Mon-Fri 6a-5p please page [phone]. After 5pm and on Weekends and Holidays, please page [phone] if in ICU or [phone] if on RNF. Subjective SUBJECTIVE: NAEON, weaning Levo Diet: Parenteral Nutrition - Adult DIET NPO Objective OBJECTIVE: Vitals: Temp (24hrs), Av.6 ?C (96.1 ?F), Min:35 ?C (95 ?F), Max:36.5 ?C (97.7 ?F) BP 132/57 Pulse 92 Temp 36.5 ?C (97.7 ?F) (Temporal Artery) Resp 28 Ht 172.7 cm (5' 8) Wt 104.2 kg (229 lb 11.5 oz) SpO2 94% BMI 34.93 kg/m? O2 Therapy: Ventilator IANDO: Date 01/19/18 07 - 01/20/18 0659 01/20/18 07 - 01/21/18 0659 Shift 6543-7015 0867-3428 4769-6398 24 Hour Total 2010-3110 0670-2239 3547-5284 24 Hour Total I N T A K E IV 2828 795 8899 IVPB 79 79 NS 0.9% 756 41 797 Calcium IVPB 147 147 Fentanyl Volume 54 25 79 Dexmedetomidine IV 45 45 NORepinephrine Volume 78 50 128 Propofol IV 159 208 367 Ampicillin/Sulbactam (Unasyn) IV 100 200 300 TPN/PPN 1660 924 1324 TPN 9286 932 8309 Shift Total 2868 1313 4181 O U T P U T Urine Urine Incontinence/Not Saved 3 x 3 x Tubes 200 350 550 Drain/Tube Output (Drain/Tube 01/19/18 1015 Midline Abdomen) 200 350 550 Drain/Tube Output (Drain/Tube 01/12/18 Fecal Management System) 0 0 0 Output (GI Feed/Drain 01/12/18 0100) 0 0 0 Dialysis 140 1058 1777 2975 Dialysis Output (Ultrafiltration) 140 1058 1777 2975 Shift Total 140 1258 2127 3525 Weight (kg) 104.2 104.2 104.2 104.2 104.2 104.2 104.2 104.2 MEDICATIONS Current Facility-Administered Medications: carboxymethylcellulose sodium 1-2 Drop (CELLUVISC) 1-2 Drop BOTH EYES PRN Parenteral Nutrition - Adult INTRAVENOUS ONCE TPN (1800 START) polyvinyl alcohol-povidone 1.4-0.6 % 1 Drop (REFRESH) 1 Drop BOTH EYES QID PRN propofol infusion (DIPRIVAN) 0-15 mcg/kg/min (Adjusted) INTRAVENOUS CONTINUOUS hydrocortisone sodium succinate (PF) 50 mg injection (Solu- CORTEF) 50 mg INTRAVENOUS q 8 H heparin 1,000 unit/mL 4,000 Units injection 4,000 Units INTRAVENOUS 3 Times weekly with dialysis heparin 5,000 Units injection 5,000 Units SUBCUTANEOUS q 12 H ampicillin-sulbactam 3 g in NaCl 0.9% 100 mL MB+ (UNASYN) 3 g INTRAVENOUS q 6 H NaCl 0.9% 1,000 mL iv bolus 1,000 mL INTRAVENOUS PRN DIALYSIS prismaSOL BGK 4 K / 2.5 mEq Ca/Liter 5,000 mL 5,000 mL HEMODIALYSIS continuous (no dispense) prismaSOL BGK 4 K / 2.5 mEq Ca/Liter 5,000 mL 5,000 mL HEMODIALYSIS continuous (no dispense) prismaSOL BGK 4 K / 2.5 mEq Ca/Liter 5,000 mL 5,000 mL HEMODIALYSIS continuous (no dispense) dextrose 40 % 15 g 15 g ORAL PRN Or glucagon 1 mg injection (GLUCAGEN) 1 mg INTRAMUSCULAR PRN Or dextrose 50% in water 25 mL syringe 12.5 g INTRAVENOUS PRN magnesium sulfate 1 g in D5W 100 mL 1 g INTRAVENOUS PRN magnesium sulfate in water 2 g in sterile water 50 ml 2 g INTRAVENOUS PRN fentaNYL 20 mcg/mL iv infusion in NaCl 0.9% 100 mL 0-75 mcg/hr INTRAVENOUS CONTINUOUS pantoprazole 40 mg injection (PROTONIX) 40 mg INTRAVENOUS DAILY (6 AM) NORepinephrine 16 mg in D5W 250 mL (LEVOPHED) 0-30 mcg/min INTRAVENOUS CONTINUOUS Chlorhexidine Gluconate 0.12 % 15 mL (PERIDEX) 15 mL ORAL q 12 H Labs: Recent Labs 01/20/18 0345 01/19/18 1630 01/19/18 0450 01/18/18 1000 01/18/18 0500 NA 135* 138 -- 139 < > -- -- K 4.5 4.3 -- 4.3 < > -- -- CHLOR 104 106 -- 105 < > -- -- CO2 21 22 -- 25 < > -- -- BUN 36* 31* -- 22* < > -- -- CREAT 1.84* 1.90* -- 1.63* < > -- -- GLUC -- 241* -- 215* < > -- -- ANION 15 14 -- 13 < > -- -- CA 6.8* 6.5* -- 7.0* < > -- -- MG -- -- -- 2.6 -- -- 2.4 P -- -- -- 2.7 -- -- 3.8 ALB 1.5* -- -- -- -- 1.7* -- AST 130* -- -- -- -- 65* -- ALT -- -- -- -- -- 18 -- ALKPHOS 190* -- -- -- -- 124* -- TBILI 6.0* -- -- -- -- 4.3* -- WBC 14.99* 13.43* < > 8.08 < > 9.65* -- HB 9.4* 9.8* < > 9.5* < > 10.1* -- HCT 27.1* 28.9* < > 28.5* < > 30.7* -- PLT 97* 91* < > 56* < > 54* -- PH 7.405 7.321* < > -- -- -- -- PCO2 33.0* 42.6 < > -- -- -- -- PO2 65.4* 68.2* < > -- -- -- -- BE -3.9 -4.3 < > -- -- -- -- < > = values in this interval not displayed. Exam: GENERAL: No distress NEURO: pupils reactive/sluggish, not following commands, withdrawing and opening eyes to pain HEENT: normocephalic, atraumatic, +scleral icterus LUNGS: Tachypnea on Ventilator CARDIAC: Regular rate and rhythm as above, Levo @ 2 mcg/min ABDOMEN: Soft, mild D, NT, no PS, Vac intact w SS output EXTREMITIES: MAK, No deformities, +Anasarca, palpable pulses SKIN: Skin color, texture, turgor normal, No rashes or lesions ASSESSMENT AND PLAN: Active Hospital Problems Diagnosis Date Noted - Ruptured abdominal aortic aneurysm (AAA) ([facility]) 01/12/2018 - Obesity, Class I, BMI 30-34.9 01/16/2018 - Encephalopathy 01/13/2018 - DIC (disseminated intravascular coagulation) ([facility]) 01/12/2018 - Hemorrhagic shock ([facility]) 01/12/2018 - Acute respiratory failure ([facility]) 01/12/2018 - Cardiac arrest ([facility]) 01/12/2018 - Hypernatremia 01/12/2018 - Hypokalemia 01/12/2018 - Hypomagnesemia 01/12/2018 - Hypophosphatemia 01/12/2018 - Hyperchloremia 01/12/2018 - AAA (abdominal aortic aneurysm, ruptured) ([facility]) 01/12/2018 Overview Note: Added automatically from request for surgery [id number] 77 year old male with Ruptured AAA s/p Emergent Repair, takeback washout, repair of serosal tears x2, on 01/12, hemorrhagic shock, acute resp failure with pulm edema, TERENCE, SVT, s/p Third Look Laparotomy and?washout on 01/14, fourth look, washout, vac change on 01/16, Partial fascial closure on 01/19 ? - Vent mgmt per MICU - NPO/TPN - Wean Levo as able - Acute blood loss and dilutional anemia and thrombocytopenia - monitor, transfuse prn - q6 labs - Cont Abthera VAC - TERENCE -->?CVVHD per?Nephro, diurese as tolerates - CXR with bilateral pulm edema/effusions, worsening by my read --> consider US +/- Thoracentesis - Unasyn empirically per MICU - Hypocalcemia and phosphatemia?- replacing - Amio per Cards for SVT - cont scrotal support - Hyperbilirubinemia - likely transfusion related, consider RUQ US if fevers develop and LFTs/jaundice worsen - Solucortef 50mg q8h per MICU - Leukocytosis - reactive and steroid related, afebrile, monitor ? OR tomorrow for possible fascial closure ?? Assessment and plan discussed with attending: Dr. Paniagua SIGNATURE: Dionicio Stevens MD PATIENT NAME: Naveen Akins DATE: January 20, 2018 TIME: 6:23 AM Vascular AND Thoracic Surgery Service Pager: For questions or concerns Tue-Tue 6a-5p please page [phone]. After 5pm and on Weekends and Holidays, please page [phone] if in ICU or [phone] if on RNF. CHEST 1 VIEW Observed: 01/20/2018 Status: F Source: [facility] 5:31 AM HEALTH SYSTEM REPOSITORY Performed at [facility] APPROVED BY: Teddy Mota MD EXAMINATION: CHEST RADIOGRAPH (SINGLE VIEW AP OR PA) Clinical History: Evaluate tube, line or lead position M: [id number] Comparison: 01/19/2018 RESULT: Lines, tubes, and devices: Endotracheal tube tip is in the midline above the kianna. No change position of the internal jugular lines or nasogastric tube. Lungs and pleura: Moderate degree of diffuse opacification throughout the lungs and moderate size pleural effusions, unchanged. Cardiomediastinal silhouette: Normal cardiomediastinal silhouette. IMPRESSION: No significant interval change HEMOGRAM/DIFF Collected: 01/20/2018 Status: F Source: [facility] 3:45 AM HEALTH SYSTEM REPOSITORY TYPE CODE TESTS RESULT OUT OF REFERENCE UNITS RANGE LAB WBC(LOINC) 4.23-9.07 thou/cmm High WBC 14.99 LAB RBC(LOINC) 4.63-6.08 mil/cmm Low RBC 3.18 LAB HGB(LOINC) 13.7-17.5 g/dL Low Hgb 9.4 LAB HCT(LOINC) 40.1-51.0 % Low Hct 27.1 LAB MCV(LOINC) 83.2-95.6 fl MCV 85.2 LAB MCH(LOINC) 25.7-32.2 pg MCH 29.6 LAB MCHC(LOINC) 32.3-36.5 % MCHC 34.7 LAB RDW(LOINC) 11.6-14.4 % High RDW 19.1 LAB RDWSD(LOINC 36.1-45.8 fl ) High RDW SD 57.3 LAB PLT(LOINC) 141-365 thou/cmm Low Platelet 97 Result Comment: Smear scanned tech agrees with platelet count LAB MPV(LOINC) 8.7-12.0 fl MPV High 12.5 LAB NRBCR(LOINC) 0.0-0.2 % High Nucleated RBC % 1.1 LAB SEG(LOINC) % Seg Neutrophil 80.1 LAB IGRE(LOINC) % Immature Grans 10.10 LAB LYMPH(LOINC) % Lymphocyte 4.3 LAB MNO(LOINC) % Monocyte 5.0 LAB EOSIN(LOINC) % Eosinophil 0.3 LAB BASO(LOINC) % Basophil 0.2 LAB NRBCA(LOINC) 0.00-0.01 thou/cmm High Nucleated RBC Absolute 0.17 LAB SEGN(LOINC) 1.78-5.38 thou/cmm Abs. High Neut (ANC) 12.01 LAB IGAB(LOINC) 0.00-0.05 thou/cmm Abs High Immature Grans 1.51 LAB LYMN(LOINC) 0.84-2.85 thou/cmm Abs. Low Lymph 0.64 LAB MONON(LOINC) 0.30-0.82 thou/cmm Abs. Rincon 0.75 LAB EOSN(LOINC) 0.04-0.54 thou/cmm Abs. Eosin 0.04 LAB BASON(LOINC) 0.01-0.08 thou/cmm Abs. Baso 0.03 Performed By: #### [id number] #### [place] [id number] HEPATIC PANEL Collected: 01/20/2018 Status: F Source: [facility] 3:[address] [place] [address] SYSTEM REPOSITORY TYPE CODE TESTS RESULT OUT OF REFERENCE UNITS RANGE LAB DBIL(LOINC 0.00-0.20 mg/dL ) High Direct 5.07 Bilirubin Result Comment: Hemoglobin interference present. No direct bilirubin result reportable. LAB TP(LOINC) 6.4-8.2 g/dL Total Low Protein 4.9 LAB ALB(LOINC) 3.4-5.0 g/dL Albumin Low Blood 1.5 LAB ALKP(LOINC) 46-116 U/L Alk High Phosphatase 190 LAB AST(LOINC) 9-37 U/L AST-SGOT High Blood 130 LAB BILIT(LOINC) 0.2-1.0 mg/dL Total High Bilirubin 6.0 LAB ALT(LOINC) 12-78 U/L ALT-SGPT Blood 57 Performed By: #### HEPAP #### [place] [address] BASIC PANEL Collected: 01/20/2018 Status: F Source: [facility] 3:45 AM HEALTH SYSTEM REPOSITORY TYPE CODE TESTS RESULT OUT OF REFERENCE UNITS RANGE LAB NA(LOINC) 136-145 mEq/L Low Sodium Blood 135 LAB K(LOINC) 3.5-5.1 mEq/L Potassium Blood 4.5 LAB CL(LOINC) 98-107 mEq/L Chloride Blood 104 LAB CO2(LOINC) 21-32 mEq/L CO2 Blood 21 LAB BUN(LOINC) 7-18 mg/dL BUN High Blood 36 LAB CREA(LOINC 0.67-1.17 mg/dL ) High Creatinine Blood 1.84 LAB CA(LOINC) 8.5-10.1 mg/dL Low Calcium Blood 6.8 LAB ANGAP(LOIN 8-16 C) Anion Gap 15 LAB GLU(LOINC) 70-99 mg/dL Glucose High Blood 186 Performed By: #### P8 #### [facility] [address] [place] [address] MAGNESIUM BLOOD Collected: 01/20/2018 Status: F Source: [facility] 3:45 AM HEALTH SYSTEM REPOSITORY TYPE CODE TESTS RESULT OUT OF REFERENCE UNITS RANGE LAB MAG(LOINC) 1.6-2.6 mg/dL Magnesium Blood 2.6 Performed By: #### MAG #### [place] [address] PHOSPHORUS BLOOD Collected: 01/20/2018 Status: F Source: [facility] 3:45 AM HEALTH SYSTEM REPOSITORY TYPE CODE TESTS RESULT OUT OF REFERENCE UNITS RANGE LAB PHOS(LOINC 2.5-4.9 mg/dL ) High Phosphorus Blood 5.2 Performed By: #### PHOS #### [place] [address] PROGRESS Observed: 01/19/2018 Status: COMPLETED Source: [place] 6:04 PM CLINIC OTHER CAMPUS REPOSITORY O ID: [id number] Author: Herman Sutton Service: Critical Care Author Type: Physician Type: Progress Notes Filed: 01/19/2018 6:11 PM Note Text: MICU - PROGRESS NOTE SERVICE DATE: 01/19/2018 SERVICE TIME: 6:04 PM Admission Date: 01/12/2018 AGE: [id number] year old LOS: 7 days Subjective REASON FOR ICU ADMISSION: { Patient remains critically ill, intubated on mechanical ventilation. Went back to the OR today to close his abdomen but were unable giving the significant swelling Was severely hypoxic postop and was on 100% and 10 of PEEP Vasopressors were off Objective PROBLEMS: ACTIVE PROBLEM LIST Gallstone Pancreatitis Ruptured Abdominal Aortic Aneurysm (Aaa) (Hcc) Dic (Disseminated Intravascular Coagulation) (Hcc) Hemorrhagic Shock (Hcc) Acute Respiratory Failure (Hcc) Cardiac Arrest (Hcc) Hypernatremia Hypokalemia Hypomagnesemia Hypophosphatemia Hyperchloremia Encephalopathy Aaa (Abdominal Aortic Aneurysm, Ruptured) (Hcc) Obesity, Class I, Bmi 30-34.9 PAST MEDICAL HISTORY Diagnosis Date - DIC (disseminated intravascular coagulation) (HCC) 01/12/2018 PAST SURGICAL HISTORY Procedure Laterality Date - LAP CHOLECYSTECT/CHOLANGIOGRAPHY 05-28-09 - REPAIR UMBILICAL NATAN,5+Y/O,REDUC 05-28-09 Social History Marital status: Spouse name: Shelly Years of education: 11 Number of children: 4 Occupational History 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 BP 132/57 Pulse 75 Temp (Src) 95.7 (Temporal Artery) Resp 23 Ht 5' 8 (1.73m) Wt 229 lb 11.5 oz (104.2kg) SpO2 95% BMI 34.94 kg/(m2). Temp (24hrs), Av.4 ?C (95.8 ?F), Min:35 ?C (95 ?F), Max:36 ?C (96.8 ?F) NET FLUID BALANCE Intake/Output Summary (Last 24 hours) at 01/19/18 1804 Last data filed at 01/19/18 0700 Gross per 24 hour Intake 157.6 ml Output 1173 ml Net -1015.4 ml MEDICATIONS Current Facility-Administered Medications: carboxymethylcellulose sodium 1-2 Drop (CELLUVISC) 1-2 Drop BOTH EYES PRN calcium gluconate 4 g in NaCl 0.9% 250 mL 4 g INTRAVENOUS ONCE sodium phosphate 45 mmol in D5W 250 mL 45 mmol INTRAVENOUS ONCE Parenteral Nutrition - Adult INTRAVENOUS ONCE TPN (1800 START) polyvinyl alcohol-povidone 1.4-0.6 % 1 Drop (REFRESH) 1 Drop BOTH EYES QID PRN propofol infusion (DIPRIVAN) 0-15 mcg/kg/min (Adjusted) INTRAVENOUS CONTINUOUS hydrocortisone sodium succinate (PF) 50 mg injection (Solu- CORTEF) 50 mg INTRAVENOUS q 8 H heparin 1,000 unit/mL 4,000 Units injection 4,000 Units INTRAVENOUS 3 Times weekly with dialysis heparin 5,000 Units injection 5,000 Units SUBCUTANEOUS q 12 H ampicillin-sulbactam 3 g in NaCl 0.9% 100 mL MB+ (UNASYN) 3 g INTRAVENOUS q 6 H NaCl 0.9% 1,000 mL iv bolus 1,000 mL INTRAVENOUS PRN DIALYSIS prismaSOL BGK 4 K / 2.5 mEq Ca/Liter 5,000 mL 5,000 mL HEMODIALYSIS continuous (no dispense) prismaSOL BGK 4 K / 2.5 mEq Ca/Liter 5,000 mL 5,000 mL HEMODIALYSIS continuous (no dispense) prismaSOL BGK 4 K / 2.5 mEq Ca/Liter 5,000 mL 5,000 mL HEMODIALYSIS continuous (no dispense) dextrose 40 % 15 g 15 g ORAL PRN Or glucagon 1 mg injection (GLUCAGEN) 1 mg INTRAMUSCULAR PRN Or dextrose 50% in water 25 mL syringe 12.5 g INTRAVENOUS PRN magnesium sulfate 1 g in D5W 100 mL 1 g INTRAVENOUS PRN magnesium sulfate in water 2 g in sterile water 50 ml 2 g INTRAVENOUS PRN fentaNYL 20 mcg/mL iv infusion in NaCl 0.9% 100 mL 0-75 mcg/hr INTRAVENOUS CONTINUOUS pantoprazole 40 mg injection (PROTONIX) 40 mg INTRAVENOUS DAILY (6 AM) NORepinephrine 16 mg in D5W 250 mL (LEVOPHED) 0-30 mcg/min INTRAVENOUS CONTINUOUS Chlorhexidine Gluconate 0.12 % 15 mL (PERIDEX) 15 mL ORAL q 12 H Lines, Drains, and Airways Line Central Line Double Lumen 01/12/18 0239 Right Neck 7 days Dialysis / Apheresis Double Lumen 01/13/18 1136 Left Neck 6 days Arterial Line 01/19/18 0840 Arterial Line Right Radial less than 1 day Central Line Quadruple Lumen 01/19/18 1056 Right Neck less than 1 day Drain Drain/Tube 01/12/18 Fecal Management System 7 days GI Feed/Drain 01/12/18 0100 7 days Drain/Tube 01/19/18 1015 Midline Abdomen less than 1 day Airway Airway Endotracheal Tube 01/12/18 1138 7 days PHYSICAL EXAM PERFORMED: General: sedated intubated , no vent dysynchrony Cardiovascular:?Regular rhythm, on amiodarone drip Respiratory:?Rhonchi bilaterally, requiring 100% FiO2 and 10 of PEEP Abdomen: Soft and Nontender Extremities:?Edema-?No??? Neurologic:?Sedated Respiratory/Nursing Documentation: O2 Therapy: Ventilator (01/19/181714) Invasive Ventilator Mode: Pressure Regulated Volume Control (01/19/181714) Set Ventilator Respiratory Rate (BPM): 24 (01/19/181714) Total Respiratory Rate (BPM): 24 (01/19/181714) Tidal Volume Set (mL): 500 (01/19/181714) Exhaled Tidal Volume (mL): 563 (01/19/181714) Minute Volume (L): 14.5 (01/19/181714) Peak Inspiratory Pressure (cm H2O): 18 (01/19/181714) PEEP/CPAP (cm H2O): 10 (01/19/181714) HEMODYNAMIC DATA: Reviewed NUTRITION: Enteral Feeds: No TPN DATA: Diagnostic tests reviewed for today's visit, films/specimens were personally reviewed by me: Most recent labs and imaging results. LABS: Recent Labs 01/19/18 1630 01/19/18 0450 01/18/18 1000 WBC 13.43* < > 8.08 < > 9.65* RBC 3.37* < > 3.34* < > 3.59* HB 9.8* < > 9.5* < > 10.1* HCT 28.9* < > 28.5* < > 30.7* MCV 85.8 < > 85.3 < > 85.5 PLT 91* < > 56* < > 54* GLUC 241* -- 215* < > -- BUN 31* -- 22* < > -- CREAT 1.90* -- 1.63* < > -- NA 138 -- 139 < > -- K 4.3 -- 4.3 < > -- CHLOR 106 -- 105 < > -- CO2 22 -- 25 < > -- TPROT -- -- -- -- 4.8* ALB -- -- -- -- 1.7* CA 6.5* -- 7.0* < > -- ALKPHOS -- -- -- -- 124* TBILI -- -- -- -- 4.3* AST -- -- -- -- 65* ALT -- -- -- -- 18 MG -- -- 2.6 -- -- < > = values in this interval not displayed. ABG: Recent Labs 01/19/18 1630 01/19/18 1215 01/18/18 0430 PH 7.321* 7.250* 7.342* PO2 68.2* 63.5* 98.3* PCO2 42.6 53.7* 42.3 cxr IMPRESSION: 1. ?Interval advancement versus placement of a new right IJ line, terminating over ?the right atrium. ?No pneumothorax. 2. ?Bilateral pleural effusion, with interval worsening on the right. 3. ?Bilateral infiltrative changes also appear slightly worse Assessment/Plan IMPRESSION: Acute Hypoxic Respiratory Failure on mechanical ventilation now with volume overload post op ARDS/VOLUME OVERLOAD Ruptured AAA s/p surgical repair s/p Cardiac Arrest Encephalopathy??? TERENCE on CKD?- Suspected ATN - On CRRT Lactic Acidosis - Resolved Sinus Tachycardia Thrombocytopenia SVT - Resolved MMP ? PLANS FOR TODAY: ? Continue?mechanical ventilation With high PEEP and FiO2 of 100% We'll start CRRT to help removing fluid hopefully this will help with oxygenation, if needed vasopressors to be used to help keep his balance negative Fentanyl Drip for pain HD better with hydrocortisone EEG impressive for severe encephalopathy, no evidence of epileptiform activity/seizures AAA management/post-operative care per vascular surgery Continue w/ amiodarone gtt, monitor rhythm. ?No further runs of SVT Cardiology consulted, appreciate recs Continue TPN SCDs/PPI/ Heparin SQ per primary team Guarded prgnosis ? Critical Care Documentation:?The patient has the following organ/system impairment(s): ?Circulatory shock, Complex life-threatening ?medical problem(s) and Respiratory failure (Acute, with Hypoxemia) ? ? This patient has a high probability of sudden, clinically significant deterioration, which requires the highest level of physician preparedness to intervene urgently. ?I managed/supervised life or organ supporting interventions that required frequent physician assessment. ?I devoted my full attention to the direct care of this patient for the amount of time indicated below. ?Time I spent with family or surrogate(s) is included only if the patient was incapable of providing the necessary information or participating in medical decision making. ?Time devoted to teaching is not included. ? Critical Care Time devoted to this patient is ?40?minutes SIGNATURE: Herman Sutton MD PATIENT NAME: Naveen Akins DATE: January 19, 2018 TIME: 6:04 PM ANES POST Observed: 01/19/2018 Status: COMPLETED Source: [place] 5:08 PM [facility] REPOSITORY [facility] ID: [id number] Author: Derian Barlow Service: Anesthesiology Author Type: Physician Type: Anesthesia PostOp Filed: 01/19/2018 5:09 PM Note Text: POST ANESTHESIA EVALUATION NOTE SERVICE DATE: 01/19/2018 SERVICE TIME: 1704 : 1940 Vitals: 01/19/18 1200 01/19/18 1400 01/19/18 1500 01/19/18 1600 Temp: (!) 35.6 ?C (96.1 ?F) (!) 35 ?C (95 ?F) (!) 35.2 ?C (95.4 ?F) (!) 35.2 ?C (95.4 ?F) 01/19/18 1400 01/19/18 1430 01/19/18 1500 01/19/18 1600 Arterial BP 1: 139/72 149/68 122/55 160/72 BP: 01/19/18 1400 01/19/18 1430 01/19/18 1500 01/19/18 1600 Pulse: 69 75 74 74 01/19/18 1400 01/19/18 1430 01/19/18 1500 01/19/18 1600 Resp: 30 30 25 25 01/19/18 1400 01/19/18 1430 01/19/18 1500 01/19/18 1600 SpO2: 98% 99% 99% 95% Validated Vital Signs: Yes POST ANES STATUS: No apparent anesthetic complications. The patient is appropriately hydrated with stable respiratory and cardiovascular status. Patient has safe and adequate airway control. The patient has appropriate pain relief and no significant post operative nausea or vomiting. The patient has achieved baseline mental status. Further assessment by Anesthesia Service: None Other Remarks: Pt was delivered to CVICU from OR in stable condition. From review of recent vital signs, pt's ventilatory status has apparently improved. SIGNATURE: Derian Barlow MD PATIENT NAME: Naveen Akins DATE: January 19, 2018 TIME: 5:08 PM PAGER/CONTACT #: BLOOD GAS ARTERIAL Collected: 01/19/2018 Status: F Source: [facility] 4:30 PM HEALTH SYSTEM REPOSITORY TYPE CODE TESTS RESULT OUT OF REFERENCE UNITS RANGE LAB FIO2(LOINC % ) FIO2 Value Not Given LAB TEMPA(LOIN C) Temperature 37.0 LAB PH(LOINC) 7.350-7.450 Low pH Arterial 7.321 LAB PCO2(LOINC 36.0-46.0 mm Hg ) PCO2 Arterial 42.6 LAB PO2(LOINC) 85.0-96.0 mm Hg Low PO2 Arterial 68.2 LAB HCO3A(LOIN 22.0-26.0 mEq/L C) Low HCO3- 21.5 LAB O2%A(LOINC 95.0-98.0 % ) Low O2% Sat Arterial 92.9 LAB BASEX(LOIN -2.5 to 2.5 mEq/L C) Base Excess -4.3 Performed By: #### ABG #### [place] [address] HEMOGRAM Collected: 01/19/2018 Status: F Source: [facility] 4:30 HEALTH SYSTEM REPOSITORY TYPE CODE TESTS RESULT OUT OF REFERENCE UNITS RANGE LAB WBC(LOINC) 4.23-9.07 thou/cmm WBC High 13.43 LAB RBC(LOINC) 4.63-6.08 mil/cmm Low RBC 3.37 LAB HGB(LOINC) 13.7-17.5 g/dL Low Hgb 9.8 LAB HCT(LOINC) 40.1-51.0 % Low Hct 28.9 LAB MCV(LOINC) 83.2-95.6 fl MCV 85.8 LAB MCH(LOINC) 25.7-32.2 pg MCH 29.1 LAB MCHC(LOINC 32.3-36.5 % ) MCHC 33.9 LAB RDW(LOINC) 11.6-14.4 % RDW High 18.6 LAB RDWSD(LOIN 36.1-45.8 fl C) RDW High SD 56.7 LAB PLT(LOINC) 141-365 thou/cmm Low Platelet 91 LAB MPV(LOINC) 8.7-12.0 fl MPV 11.5 LAB NRBCR(LOIN 0.0-0.2 % C) High Nucleated RBC % 0.5 LAB NRBCA(LOIN 0.00-0.01 thou/cmm C) High Nucleated RBC 0.07 Absolute Performed By: #### CBC1 #### [place] [address] BASIC PANEL Collected: 01/19/2018 Status: F Source: [facility] 4:30 PM HEALTH SYSTEM REPOSITORY TYPE CODE TESTS RESULT OUT OF REFERENCE UNITS RANGE LAB NA(LOINC) 136-145 mEq/L Sodium Blood 138 LAB K(LOINC) 3.5-5.1 mEq/L Potassium Blood 4.3 LAB CL(LOINC) 98-107 mEq/L Chloride Blood 106 LAB CO2(LOINC) 21-32 mEq/L CO2 Blood 22 LAB GLU(LOINC) 70-99 mg/dL Glucose High Blood 241 LAB BUN(LOINC) 7-18 mg/dL BUN High Blood 31 LAB CREA(LOINC 0.67-1.17 mg/dL ) High Creatinine Blood 1.90 LAB CA(LOINC) 8.5-10.1 mg/dL Low Calcium Blood 6.5 LAB ANGAP(LOIN 8-16 C) Anion Gap 14 Performed By: #### P8 #### [place] [address] PREALBUMIN Collected: 01/19/2018 Status: F Source: [facility] 4:30 PM HEALTH SYSTEM REPOSITORY TYPE CODE TESTS RESULT OUT OF REFERENCE UNITS RANGE LAB PAB(LOINC) 20.0-40.0 mg/dL Low Prealbumin 11.8 Performed By: #### PAB #### [place] [address] NURSING PROG Observed: 01/19/2018 Status: COMPLETED Source: [place] 4:00 PM CLINIC OTHER CAMPUS REPOSITORY [facility] ID: [id number] Author: Megan (Rn) MAGALY Chino Service: Dialysis Author Type: Registered Nurse Type: Nursing Progress Note Filed: 01/19/2018 7:42 PM Note Text: CRRT system set up after new line with previous settings.BFR 150 pre pump 700 dialysate 700 replacement 700 ufr 350. Good flow from catheter. Hemosafe on x2 PROGRESS Observed: 01/19/2018 Status: COMPLETED Source: [place] 3:04 PM [facility] OTHER [place] REPOSITORY [facility]NO ID: [id number] Author: Troy Godoy Service: Nephrology Author Type: Physician Type: Progress Notes Filed: 01/19/2018 3:08 PM Note Text: Dialysis catheter issues. Attempted to exchange catheter over guidewire. Under sterile precautions, attempted guidewire insertion through blue port. Could not pass guidewire beyond catheter length size. He likely has a small clot at tip of catheter. For now brown port flushes and draws blue ports flushes only. Will attempt CRRT again with reversed lines. If not successful will have to resite on left IJ or attempt femoral. Has a RIJ TLC in place. Will follow CASE MANAGEM Observed: 01/19/2018 Status: COMPLETED Source: [place] 2:24 PM [facility] REPOSITORY [facility] ID: [id number] Author: Steve (Rn) Miguel, RN Service: Care Management Author Type: Registered Nurse Type: Care Mgt Progress Note Filed: 01/19/2018 2:28 PM Note Text: Pt to OR today for ex-lap, washout, partial closure, and wound vac change. Remains on IV ABX, precedex, and levo. Will continue to follow for transitional needs. ANES PREOP Observed: 01/19/2018 Status: COMPLETED Source: [place] 1:52 PM [facility] REPOSITORY [facility] ID: [id number] Author: Derian Barlow Service: Anesthesiology Author Type: Physician Type: Anesthesia PreOp Filed: 01/19/2018 1:54 PM Note Text: ANESTHESIOLOGY DAY OF SURGERY NOTE SERVICE DATE: 01/19/2018 SERVICE TIME: 0800 : 1940 Procedure(s) (LRB): EXPLORATORY LAPAROTOMY, WASHOUT, Partial Closure, Wound Vac placed. (Bilateral) Surgeon(s): Venkat Shen (Res) Ghassan Estimated body mass index is 34.93 kg/m? as calculated from the following: Height as of this encounter: 172.7 cm (5' 8). Weight as of this encounter: 104.2 kg (229 lb 11.5 oz). Most recent hematocrit and potassium results: Hematocrit 29.8 01/19/2018 Potassium 4.3 01/19/2018 ANES DOS/PREOP NOTE: Vitals: 01/19/18 1145 01/19/18 1150 01/19/18 1200 01/19/18 1204 BP: Pulse: 67 62 63 64 Resp: Temp: (!) 35.6 ?C (96.1 ?F) TempSrc: SpO2: (!) 86% (!) 85% (!) 85% (!) 87% Weight: Height: ACTIVE PROBLEM LIST Gallstone Pancreatitis Ruptured Abdominal Aortic Aneurysm (Aaa) (Hcc) Dic (Disseminated Intravascular Coagulation) (Hcc) Hemorrhagic Shock (Hcc) Acute Respiratory Failure (Hcc) Cardiac Arrest (Hcc) Hypernatremia Hypokalemia Hypomagnesemia Hypophosphatemia Hyperchloremia Encephalopathy Aaa (Abdominal Aortic Aneurysm, Ruptured) (Hcc) Obesity, Class I, Bmi 30-34.9 PAST MEDICAL HISTORY Diagnosis Date - DIC (disseminated intravascular coagulation) (HCC) 01/12/2018 PAST SURGICAL HISTORY Procedure Laterality Date - LAP CHOLECYSTECT/CHOLANGIOGRAPHY 05-28-09 - REPAIR UMBILICAL NATAN,5+Y/O,REDUC 05-28-09 FAMILY HISTORY Problem Relation Age of Onset - Coronary Artery Disease Father - None Mother Social History: Social History Substance Use Topics - Smoking status: Never Smoker - Smokeless tobacco: Not on file - Alcohol use No No current facility-administered medications on file prior to encounter. Current Outpatient Prescriptions on File Prior to Encounter: metoprolol succinate(TOPROL XL 50 MG 24 HR TAB) Take one(1) tablet daily. ASPIRIN 325 MG TAB Take one(1) tablet daily. triamterene/hydrochlorothiazid(DYAZIDE 37.5 MG-25 MG CAP) take one half (1/2) tablet daily LIPITOR 10 MG TAB Take one(1) tablet daily. Current Facility-Administered Medications: carboxymethylcellulose sodium 1-2 Drop (CELLUVISC) 1-2 Drop BOTH EYES PRN Venkat [place] calcium gluconate 4 g in NaCl 0.9% 250 mL 4 g INTRAVENOUS ONCE Dionicio (Res) Stevens sodium phosphate 45 mmol in D5W 250 mL 45 mmol INTRAVENOUS ONCE Dionicio (Res) Stevens Parenteral Nutrition - Adult INTRAVENOUS ONCE TPN (1800 START) H Edwin Dudley Parenteral Nutrition - Adult INTRAVENOUS ONCE TPN (1800 START) H Edwin Dudley Last Rate: 100 mL/hr at 01/19/18 0800 propofol infusion (DIPRIVAN) 0-15 mcg/kg/min (Adjusted) INTRAVENOUS CONTINUOUS Dionicio (Res) Stevens Stopped at 01/18/18 0850 hydrocortisone sodium succinate (PF) 50 mg injection (Solu- CORTEF) 50 mg INTRAVENOUS q 8 H Shen Lorenzo 50 mg at 01/19/18 0621 heparin 1,000 unit/mL 4,000 Units injection 4,000 Units INTRAVENOUS 3 Times weekly with dialysis Troy Godoy 4,000 Units at 01/17/18 2226 heparin 5,000 Units injection 5,000 Units SUBCUTANEOUS q 12 H Louiser (Res) Wally 5,000 Units at 01/18/18 2142 ampicillin-sulbactam 3 g in NaCl 0.9% 100 mL MB+ (UNASYN) 3 g INTRAVENOUS q 6 H Chente Trinidadci Last Rate: 200 mL/hr at 01/19/18 0505 3 g at 01/19/18 0505 NaCl 0.9% 1,000 mL iv bolus 1,000 mL INTRAVENOUS PRN DIALYSIS Shen Lorenzo prismaSOL BGK 4 K / 2.5 mEq Ca/Liter 5,000 mL 5,000 mL HEMODIALYSIS continuous (no dispense) Shen Lorenzo Last Rate: 700 mL/hr at 01/16/18 1300 5,000 mL at 01/18/18 1747 prismaSOL BGK 4 K / 2.5 mEq Ca/Liter 5,000 mL 5,000 mL HEMODIALYSIS continuous (no dispense) Shen Lorenzo Last Rate: 700 mL/hr at 01/16/18 1300 5,000 mL at 01/18/18 1747 prismaSOL BGK 4 K / 2.5 mEq Ca/Liter 5,000 mL 5,000 mL HEMODIALYSIS continuous (no dispense) Shen Lorenzo Last Rate: 700 mL/hr at 01/16/18 1300 5,000 mL at 01/18/18 1747 dextrose 40 % 15 g 15 g ORAL PRN Jack Regula Or glucagon 1 mg injection (GLUCAGEN) 1 mg INTRAMUSCULAR PRN Jack Regula Or dextrose 50% in water 25 mL syringe 12.5 g INTRAVENOUS PRN Jack Regula magnesium sulfate 1 g in D5W 100 mL 1 g INTRAVENOUS PRN Emilie (Res) Cardella Last Rate: 100 mL/hr at 01/15/18 0016 1 g at 01/15/18 0016 magnesium sulfate in water 2 g in sterile water 50 ml 2 g INTRAVENOUS PRN Emilie (Res) Cardella Last Rate: 25 mL/hr at 01/13/18 1004 2 g at 01/13/18 1004 fentaNYL 20 mcg/mL iv infusion in NaCl 0.9% 100 mL 0-75 mcg/hr INTRAVENOUS CONTINUOUS Dionicio (Res) Stevens Last Rate: 3.75 mL/hr at 01/19/18 0800 75 mcg/hr at 01/19/18 0800 pantoprazole 40 mg injection (PROTONIX) 40 mg INTRAVENOUS DAILY (6 AM) Emilie (Res) Cardella 40 mg at 01/19/18 0506 NORepinephrine 16 mg in D5W 250 mL (LEVOPHED) 0-30 mcg/min INTRAVENOUS CONTINUOUS Dionicio (Res) Stevens Last Rate: 3.75 mL/hr at 01/19/18 0800 4 mcg/min at 01/19/18 0800 Chlorhexidine Gluconate 0.12 % 15 mL (PERIDEX) 15 mL ORAL q 12 H Elder Granda 15 mL at 01/18/18 2142 Allergies: ALLERGIES No Known Allergies DOS EXAM: Adequate NPO status: Yes Anesthetic risks, benefits, alternatives, personnel and consent discussed: Yes Patient agrees to proceed: Yes Previous Anesthesia: No history of adverse event. Airway Assessment: Patient intubated or has existing tracheostomy. Symptoms of Sleep Apnea: N/A Dentition: N/A Additional Physical Exam: Lungs: Lungs clear to auscultation. Good diaphragmatic excursion. Cardiac: normal S1 and S2; no rubs, no murmurs, and no gallops Additional Pertinent Findings: N/A Blood Products: Not anticipated for this procedure. Anesthetic Plan: General, Standard ASA Monitors and arterial line Pain Management Plan: Parenteral or Oral ASA Class: 4 Other Medical Problems: None Chronic Beta Lyric medication administered within 24 hours: N/A I have interviewed and examined the patient. I have reviewed the medical record and/or the pre-anesthesia evaluation, pertinent labs, and test results. Significant changes in the patient's condition since the History and Physical, not otherwise documented in primary service progress notes: No This contains updated information obtained within 48 hours of Surgery/Procedure. SIGNATURE: Derian Barlow MD PATIENT NAME: Naveen Akins DATE: January 19, 2018 TIME: 1:52 PM CSN: [id number] PROGRESS Observed: 01/19/2018 Status: COMPLETED Source: [place] 12:52 PM [facility] REPOSITORY [facility] ID: [id number] Author: Nohemi (Rn) MAGALY Marquez Service: Nursing Author Type: Registered Nurse Type: Progress Notes Filed: 01/19/2018 12:54 PM Note Text: 0800 CRRT off blood returned. 0820 To Or with anesthesia 1130 Back from Or. Dialysis called to restart CRRT PROGRESS Observed: 01/19/2018 Status: COMPLETED Source: [place] 12:36 PM [facility] REPOSITORY [facility] ID: [id number] Author: Shen Lorenzo Service: Nephrology Author Type: Physician Type: Progress Notes Filed: 01/19/2018 12:41 PM Note Text: Nephrology Progress Note Following for TERENCE. Pt is sedated and is on ventilator. Cannot obtain ROS. S/p aprtial closure of abdominal incision. Current Inpatient Medications: Current Facility-Administered Medications Ordered in Epic: carboxymethylcellulose sodium 1-2 Drop (CELLUVISC) 1-2 Drop BOTH EYES PRN Venkat P[place] calcium gluconate 4 g in NaCl 0.9% 250 mL 4 g INTRAVENOUS ONCE Dionicio (Res) Stevens sodium phosphate 45 mmol in D5W 250 mL 45 mmol INTRAVENOUS ONCE Dionicio (Res) Stevens Parenteral Nutrition - Adult INTRAVENOUS ONCE TPN (1800 START) H Edwin Dudley dexmedetomidine 400 mcg in NaCl 0.9% 100 mL (PRECEDEX) 0-0.7 mcg/kg/hr INTRAVENOUS CONTINUOUS Dionicio (Res) Stevens Parenteral Nutrition - Adult INTRAVENOUS ONCE TPN (1800 START) H Edwin Dudley Last Rate: 100 mL/hr at 01/19/18 0800 propofol infusion (DIPRIVAN) 0-15 mcg/kg/min (Adjusted) INTRAVENOUS CONTINUOUS Dionicio (Res) Stevens Stopped at 01/18/18 0850 hydrocortisone sodium succinate (PF) 50 mg injection (Solu- CORTEF) 50 mg INTRAVENOUS q 8 H Shen Lorenzo 50 mg at 01/19/18 0621 heparin 1,000 unit/mL 4,000 Units injection 4,000 Units INTRAVENOUS 3 Times weekly with dialysis Troy Belleari 4,000 Units at 01/17/18 2226 heparin 5,000 Units injection 5,000 Units SUBCUTANEOUS q 12 H Christopher (Res) Wally 5,000 Units at 01/18/18 2142 ampicillin-sulbactam 3 g in NaCl 0.9% 100 mL MB+ (UNASYN) 3 g INTRAVENOUS q 6 H Chente Whittaker Last Rate: 200 mL/hr at 01/19/18 0505 3 g at 01/19/18 0505 NaCl 0.9% 1,000 mL iv bolus 1,000 mL INTRAVENOUS PRN DIALYSIS Shen Lorenzo prismaSOL BGK 4 K / 2.5 mEq Ca/Liter 5,000 mL 5,000 mL HEMODIALYSIS continuous (no dispense) Shen Lorenzo Last Rate: 700 mL/hr at 01/16/18 1300 5,000 mL at 01/18/18 1747 prismaSOL BGK 4 K / 2.5 mEq Ca/Liter 5,000 mL 5,000 mL HEMODIALYSIS continuous (no dispense) Shen Lorenzo Last Rate: 700 mL/hr at 01/16/18 1300 5,000 mL at 01/18/18 1747 prismaSOL BGK 4 K / 2.5 mEq Ca/Liter 5,000 mL 5,000 mL HEMODIALYSIS continuous (no dispense) Shen Lorenzo Last Rate: 700 mL/hr at 01/16/18 1300 5,000 mL at 01/18/18 1747 dextrose 40 % 15 g 15 g ORAL PRN Jack Regula Or glucagon 1 mg injection (GLUCAGEN) 1 mg INTRAMUSCULAR PRN Jack Regula Or dextrose 50% in water 25 mL syringe 12.5 g INTRAVENOUS PRN Jack Regula magnesium sulfate 1 g in D5W 100 mL 1 g INTRAVENOUS PRN Emilie (Res) Cardella Last Rate: 100 mL/hr at 01/15/18 0016 1 g at 01/15/18 0016 magnesium sulfate in water 2 g in sterile water 50 ml 2 g INTRAVENOUS PRN Emilie (Res) Cardella Last Rate: 25 mL/hr at 01/13/18 1004 2 g at 08/10/18 1004 fentaNYL 20 mcg/mL iv infusion in NaCl 0.9% 100 mL 0-75 mcg/hr INTRAVENOUS CONTINUOUS Dionicio (Res) Stevens Last Rate: 3.75 mL/hr at 01/19/18 0800 75 mcg/hr at 01/19/18 0800 pantoprazole 40 mg injection (PROTONIX) 40 mg INTRAVENOUS DAILY (6 AM) Emilie (Res) Cardella 40 mg at 01/19/18 0506 NORepinephrine 16 mg in D5W 250 mL (LEVOPHED) 0-30 mcg/min INTRAVENOUS CONTINUOUS Dionicio (Res) Stevens Last Rate: 3.75 mL/hr at 01/19/18 0800 4 mcg/min at 01/19/18 0800 Chlorhexidine Gluconate 0.12 % 15 mL (PERIDEX) 15 mL ORAL q 12 H Elder Yu) Kalee 15 mL at 01/18/18 2142 No current Epic-ordered outpatient prescriptions on file. Vitals: BP 132/57 Pulse 64 Temp (!) 35.8 ?C (96.4 ?F) (Temporal Artery) Resp 30 Ht 172.7 cm (5' 8) Wt 104.2 kg (229 lb 11.5 oz) SpO2 (!) 87% BMI 34.93 kg/m? BLOOD PRESSURE RANGE: Systolic (24hrs), Av , Min:70 , Max:180 ; Diastolic (24hrs), Av, Min:34, Max:90 24HR INTAKE/OUTPUT: Intake/Output Summary (Last 24 hours) at 01/19/18 1236 Last data filed at 01/19/18 0700 Gross per 24 hour Intake 157.6 ml Output 2483 ml Net -2325.4 ml Physical exam: Constitutional: ?Ill appearing. Heent: ?intubated Cardiovascular: ?S1, S2 normal Respiratory: Coarse BS bilaterally Abdomen: ?+bs, soft, nt, nd, scrotal edema-unchanged Ext: 2+?lower extremity edema/anasarca Data: Labs: Recent Labs 01/19/18 0450 01/18/18 2305 01/18/18 1630 WBC 8.08 8.35 8.87 HB 9.5* 9.2* 9.4* HCT 28.5* 27.6* 29.1* MCV 85.3 84.9 85.3 PLT 56* 56* 55* Recent Labs 01/19/18 0450 01/18/18 1630 01/18/18 0500 01/18/18 0435 01/17/18 0435 NA 139 138 -- 139 < > 137 K 4.3 4.6 -- 4.5 < > 4.0 CO2 25 23 -- 23 < > 24 MG 2.6 -- 2.4 -- -- 2.3 BUN 22* 16 -- 14 < > 12 CREAT 1.63* 1.57* -- 1.70* < > 1.67* CA 7.0* 6.6* -- 6.9* < > 6.2* < > = values in this interval not displayed. Assessment and Plan 1. Acute kidney injury on chronic kidney disease stage 3. Baseline SCr is 1.36 mg/dL on 11/14/17. CKD is likely due to nephrosclerosis related to PAD. TERENCE is 2/2 ischemic ATN from shock. Pt remains anuric. Currently off pressor. Off CRRT for now since he was in the OR-will restart CRRT. Continue UF rate at 50 mL/hr since BP is stable. Will reassess later today; if BP remains stable, we may be more aggressive with UF. ? 2. Shock. Likely hemorrhagic shock-massive blood loss from ruptured AAA +/- adrenal insufficiency. Currently off pressor. Continue hydrocortisone. D/w Dr. Sutton. ? 5. Ruptured AAA. s/p repair 01/12/18. Management as per vascular surgery. ? 6. Acute hypoxic respiratory failure. Ventilator dependent. Vent management as per ICU. O>I with CRRT UF. See above. Please do not hesitate to contact me at [phone] if there is any question or concern. Rosanna Talbert MD (Shen Lorenzo) O2% MEASURED VENOUS Collected: 01/19/2018 Status: F Source: [facility] 12:20 PM HEALTH SYSTEM REPOSITORY TYPE CODE TESTS RESULT OUT OF REFERENCE UNITS RANGE LAB O2%MV(LOINC 70.0-80.0 % ) O2% Measured 77.8 Venous Performed By: #### O2%MV #### [place] [address] HEMOGRAM Collected: 01/19/2018 Status: F Source: [facility] 12:20 PM HEALTH SYSTEM REPOSITORY TYPE CODE TESTS RESULT OUT OF REFERENCE UNITS RANGE LAB WBC(LOINC) 4.23-9.07 thou/cmm High WBC 12.62 LAB RBC(LOINC) 4.63-6.08 mil/cmm Low RBC 3.42 LAB HGB(LOINC) 13.7-17.5 g/dL Low Hgb 9.8 LAB HCT(LOINC) 40.1-51.0 % Low Hct 29.8 LAB MCV(LOINC) 83.2-95.6 fl MCV 87.1 LAB MCH(LOINC) 25.7-32.2 pg MCH 28.7 LAB MCHC(LOINC) 32.3-36.5 % MCHC 32.9 LAB RDW(LOINC) 11.6-14.4 % High RDW 18.4 LAB RDWSD(LOINC 36.1-45.8 fl ) High RDW SD 57.4 LAB PLT(LOINC) 141-365 thou/cmm Low Platelet 82 Result Comment: Smear scanned tech agrees with platelet count LAB MPV(LOINC) 8.7-12.0 fl MPV High 12.2 LAB NRBCR(LOINC) 0.0-0.2 % Nucleated RBC % 0.2 LAB NRBCA(LOINC) 0.00-0.01 thou/cmm High Nucleated RBC Absolute 0.03 Performed By: #### CBC1 #### [place] [address] CHEST 1 VIEW Observed: 01/19/2018 Status: F Source: [facility] 12:16 PM HEALTH SYSTEM REPOSITORY Performed at [facility] APPROVED BY: Yahir Grande MD EXAM TITLE: CHEST 1 VIEW DATE: 01/19/2018 12:07 COMPARISON: Previous studies with the most recent performed earlier today CLINICAL INDICATION/HISTORY: Recent surgery, shock TECHNIQUE: AP upright portable chest FINDINGS: Interval advancement of a right IJ line versus placement of a new catheter. The tip overlies the right atrium. No pneumothorax. Other pre-existing lines and tubes remain in unaltered position. Again noted are bilateral pleural effusions with interval enlargement of the right-sided pleural effusion relative to the examination performed earlier today. Bilateral infiltrative changes are again s een, slightly worse since earlier exam. Stable cardiac size. Right scapular fracture appears chronic. Postoperative changes involving the proximal left humerus. IMPRESSION: 1. Interval advancement versus placement of a new right IJ line, terminating over the right atrium. No pneumothorax. 2. Bilateral pleural effusion, with interval worsening on the right. 3. Bilateral infiltrative changes also appear slightly worse. BLOOD GAS ARTERIAL Collected: 01/19/2018 Status: F Source: [facility] 12:15 PM HEALTH SYSTEM REPOSITORY TYPE CODE TESTS RESULT OUT OF REFERENCE UNITS RANGE LAB FIO2(LOINC % ) FIO2 100 LAB TEMPA(LOIN C) Temperature 37.0 LAB PH(LOINC) 7.350-7.450 Low pH Arterial 7.250 LAB PCO2(LOINC 36.0-46.0 mm Hg ) PCO2 High Arterial 53.7 LAB PO2(LOINC) 85.0-96.0 mm Hg Low PO2 Arterial 63.5 LAB HCO3A(LOIN 22.0-26.0 mEq/L C) HCO3- 23.0 LAB O2%A(LOINC 95.0-98.0 % ) Low O2% Sat Arterial 89.6 LAB BASEX(LOIN -2.5 to 2.5 mEq/L C) Base Excess -4.4 Performed By: #### ABG #### [facility] [address] [place] [address] ALLIED HEALTH Observed: 01/19/2018 Status: COMPLETED Source: [place] 11:09 AM CLINIC OTHER CAMPUS REPOSITORY HNO ID: [id number] Author: Chaplain Serna (Chaplain) Service: Spiritual Care Author Type: Envelope Stamping Machine Operator Type: Allied Health Filed: 01/19/2018 11:32 AM Note Text: SPIRITUALCARE Spiritual Care Visit- Brief Note Name: Naveen Akins Date: January 19, 2018 Notes: Checked in w/fam in 3d fl WR--pt is out of surgery and in recovery. Empathetic listening; ministry of presence. Envelope Stamping Machine Operator Signature: Chaplain Daphne To contact the Spiritual Care Department: Please call [phone] or Page the On-Call Envelope Stamping Machine Operator at pager [phone] Thank you for the opportunity to be of service. This is an electronically created document. IF PRINTED, PLEASE DO NOT REMOVE FROM THE CHART OR MODIFY PRINTED COPY. BRIEF OP NOT Observed: 01/19/2018 Status: COMPLETED Source: [place] 10:26 AM [facility] REPOSITORY HNO ID: [id number] Author: Hermelinda Ferrell Service: General Surgery Author Type: Resident Type: Brief Op Note Filed: 01/19/2018 10:28 AM Note Text: BRIEF OPERATIVE / PROCEDURE NOTE LOG ID: [id number] Patient Name:Naveen Akisn CSN: [id number] Surgery/Procedure Date: 01/19/2018 Incision/Procedure Start Time: 9:00 AM Incision Close/Procedure End Time: Surgeon(s)/Proceduralist(s) and Industrial Laborer(s): Surgeon(s) and Role: * Venkat Paniagua - Primary * Costa Miguel - Assisting * Heremlinda Ferrell - Resident - Assisting Dyed Yarn Operator: Hailey Dixon SA Procedure(s): Procedure(s) (LRB): EXPLORATORY LAPAROTOMY, WASHOUT, PARTIAL ABDOMINAL CLOSURE, WOUND VAC PLACEMENT Anesthesia: General ASA Class: Findings: viable bowel Estimated Blood Loss: 50 mls Specimens: None Complications: None * No complications entered in OR log * Pre-Op/Pre-Procedure Diagnosis: open abdomen Post-Op/Post-Procedure Diagnosis: open abdomen SIGNATURE: Hermelinda Ferrell MD PATIENT NAME: Naveen Akins DATE: January 19, 2018 TIME: 10:26 AM PAGER/CONTACT #: [phone] PROGRESS Observed: 01/19/2018 Status: COMPLETED Source: [place] 9:01 AM [facility] REPOSITORY HNO ID: [id number] Author: Mervin Lo Service: General Surgery Author Type: Resident Type: Progress Notes Filed: 01/19/2018 9:02 AM Note Text: Attestation signed by Costa Miguel at 01/19/2018 1:43 PM I saw and evaluated the patient. I reviewed the resident's note and agree. Costa Miguel MD, FACS, [facility] PROGRESS NOTES SERVICE DATE: 01/19/2018 Subjective SUBJECTIVE: Bradycardia overnight. amio stopped Still diuresing. Pressors weaning. Denies N/V/CP/SOB Diet: DIET NPO Parenteral Nutrition - Adult Parenteral Nutrition - Adult Objective OBJECTIVE: Vitals: Temp (24hrs), Av.8 ?C (96.4 ?F), Min:35.5 ?C (95.9 ?F), Max:36 ?C (96.8 ?F) BP 132/57 Pulse 80 Temp (!) 35.5 ?C (95.9 ?F) Resp 20 Ht 172.7 cm (5' 8) Wt 104.2 kg (229 lb 11.5 oz) SpO2 93% BMI 34.93 kg/m? O2 Therapy: Ventilator IANDO: Date 01/18/18 07 - 01/19/18 0659 01/19/18 07 - 01/20/18 0659 Shift 7076-7421 2266-4454 0753-0598 24 Hour Total 7497-5060 0016-5742 4110-4425 24 Hour Total I N T A K E IV 1190.6 157.6 1348.2 Calcium IVPB 250 250 Fentanyl Volume 71.6 89.6 161.2 Amiodarone 176 176 NORepinephrine Volume 256 68 324 Propofol IV 37 37 Ampicillin/Sulbactam (Unasyn) IV 400 400 TPN/PPN 1210 1210 TPN 1210 1210 Shift Total 2400.6 157.6 2558.2 O U T P U T Tubes 650 300 483 4736 Drain/Tube Output (Drain/Tube 01/12/18 0100 Hemovac Midline Anterior Abdomen) 650 711 250 3342 Drain/Tube Output (Drain/Tube 01/12/18 Fecal Management System) 0 20 20 Output (GI Feed/Drain 01/12/18 0100) 0 0 Dialysis 1647 355 974 7949 Dialysis Output (Ultrafiltration) 1647 969 650 1091 Shift Total 2292 0792 146 7247 Weight (kg) 104.2 104.2 104.2 104.2 104.2 104.2 104.2 104.2 MEDICATIONS Current Facility-Administered Medications: [MAR Hold due to Transfer] carboxymethylcellulose sodium 1- 2 Drop (CELLUVISC) 1-2 Drop BOTH EYES PRN [MAR Hold due to Transfer] calcium gluconate 4 g in NaCl 0.9% 250 mL 4 g INTRAVENOUS ONCE [MAR Hold due to Transfer] sodium phosphate 45 mmol in D5W 250 mL 45 mmol INTRAVENOUS ONCE [MAR Hold due to Transfer] Parenteral Nutrition - Adult INTRAVENOUS ONCE TPN (1800 START) [MAR Hold due to Transfer] dexmedetomidine 400 mcg in NaCl 0.9% 100 mL (PRECEDEX) 0.2-0.7 mcg/kg/hr INTRAVENOUS CONTINUOUS [MAR Hold due to Transfer] propofol infusion (DIPRIVAN) 0- 15 mcg/kg/min (Adjusted) INTRAVENOUS CONTINUOUS [MAR Hold due to Transfer] hydrocortisone sodium succinate (PF) 50 mg injection (Solu-CORTEF) 50 mg INTRAVENOUS q 8 H [MAR Hold due to Transfer] NaCl 0.9% iv infusion 100 mL/hr INTRAVENOUS CONTINUOUS [MAR Hold due to Transfer] heparin 1,000 unit/mL 4,000 Units injection 4,000 Units INTRAVENOUS 3 Times weekly with dialysis [MAR Hold due to Transfer] heparin 5,000 Units injection 5,000 Units SUBCUTANEOUS q 12 H [MAR Hold due to Transfer] ampicillin-sulbactam 3 g in NaCl 0.9% 100 mL MB+ (UNASYN) 3 g INTRAVENOUS q 6 H [MAR Hold due to Transfer] NaCl 0.9% 1,000 mL iv bolus 1,000 mL INTRAVENOUS PRN DIALYSIS [MAR Hold due to Transfer] prismaSOL BGK 4 K / 2.5 mEq Ca/Liter 5,000 mL 5,000 mL HEMODIALYSIS continuous (no dispense) [MAR Hold due to Transfer] prismaSOL BGK 4 K / 2.5 mEq Ca/Liter 5,000 mL 5,000 mL HEMODIALYSIS continuous (no dispense) [MAR Hold due to Transfer] prismaSOL BGK 4 K / 2.5 mEq Ca/Liter 5,000 mL 5,000 mL HEMODIALYSIS continuous (no dispense) [MAR Hold due to Transfer] dextrose 40 % 15 g 15 g ORAL PRN Or [MAR Hold due to Transfer] glucagon 1 mg injection (GLUCAGEN) 1 mg INTRAMUSCULAR PRN Or [MAR Hold due to Transfer] dextrose 50% in water 25 mL syringe 12.5 g INTRAVENOUS PRN [MAR Hold due to Transfer] magnesium sulfate 1 g in D5W 100 mL 1 g INTRAVENOUS PRN [MAR Hold due to Transfer] magnesium sulfate in water 2 g in sterile water 50 ml 2 g INTRAVENOUS PRN [MAR Hold due to Transfer] fentaNYL 20 mcg/mL iv infusion in NaCl 0.9% 100 mL 0-75 mcg/hr INTRAVENOUS CONTINUOUS [MAR Hold due to Transfer] pantoprazole 40 mg injection (PROTONIX) 40 mg INTRAVENOUS DAILY (6 AM) [MAR Hold due to Transfer] NORepinephrine 16 mg in D5W 250 mL (LEVOPHED) 0.6-40 mcg/min INTRAVENOUS CONTINUOUS [MAR Hold due to Transfer] Chlorhexidine Gluconate 0.12 % 15 mL (PERIDEX) 15 mL ORAL q 12 H Labs: Recent Labs 01/19/18 0450 01/18/18 2305 01/18/18 1630 01/18/18 1000 01/18/18 0500 01/18/18 0430 01/17/18 1630 NA 139 -- 138 -- -- < > -- < > -- K 4.3 -- 4.6 -- -- < > -- < > -- CHLOR 105 -- 106 -- -- < > -- < > -- CO2 25 -- 23 -- -- < > -- < > -- BUN 22* -- 16 -- -- < > -- < > -- CREAT 1.63* -- 1.57* -- -- < > -- < > -- GLUC 215* -- 250* -- -- < > -- < > -- ANION 13 -- 14 -- -- < > -- < > -- CA 7.0* -- 6.6* -- -- < > -- < > -- MG 2.6 -- -- -- 2.4 -- -- -- -- P 2.7 -- -- -- 3.8 -- -- -- -- ALB -- -- -- 1.7* -- -- -- -- -- AST -- -- -- 65* -- -- -- -- -- ALT -- -- -- 18 -- -- -- -- -- ALKPHOS -- -- -- 124* -- -- -- -- -- TBILI -- -- -- 4.3* -- -- -- -- -- WBC 8.08 8.35 8.87 9.65* -- < > -- < > -- HB 9.5* 9.2* 9.4* 10.1* -- < > -- < > -- HCT 28.5* 27.6* 29.1* 30.7* -- < > -- < > -- PLT 56* 56* 55* 54* -- < > -- < > -- PH -- -- -- -- -- -- 7.342* -- 7.335* PCO2 -- -- -- -- -- -- 42.3 -- 42.6 PO2 -- -- -- -- -- -- 98.3* -- 85.6 BE -- -- -- -- -- -- -3.1 -- -3.5 < > = values in this interval not displayed. Exam: GENERAL: comatose NEURO: sluggish pupils, no withdraw LUNGS: Unlabored breathing O2 Therapy: Ventilator CARDIAC: Regular rate and rhythm as above ABDOMEN: Vac intact w SS output EXTREMITIES: MAK, No deformities, No edema SKIN: Skin color, texture, turgor normal, No rashes or lesions ASSESSMENT AND PLAN: Active Hospital Problems Diagnosis Date Noted - Ruptured abdominal aortic aneurysm (AAA) ([facility]) 01/12/2018 - Obesity, Class I, BMI 30-34.9 01/16/2018 - Encephalopathy 01/13/2018 - DIC (disseminated intravascular coagulation) ([facility]) 01/12/2018 - Hemorrhagic shock ([facility]) 01/12/2018 - Acute respiratory failure ([facility]) 01/12/2018 - Cardiac arrest ([facility]) 01/12/2018 - Hypernatremia 01/12/2018 - Hypokalemia 01/12/2018 - Hypomagnesemia 01/12/2018 - Hypophosphatemia 01/12/2018 - Hyperchloremia 01/12/2018 - AAA (abdominal aortic aneurysm, ruptured) ([facility]) 01/12/2018 Overview Note: Added automatically from request for surgery [id number] 77 year old male with Ruptured AAA s/p Emergent Repair, takeback washout, repair of serosal tears x2, on 01/12, hemorrhagic shock, acute resp failure with pulm edema, TERENCE, SVT, s/p Third Look Laparotomy and?washout on 01/14, fourth look, washout, vac change on 01/16 ? Neuro status unchanged, minimally responsive Pressors still weaning Continued diuresis, pt tolerating well. Plan OR today for attempted closure ? Assessment and plan discussed with attending: Myriam SIGNATURE: Mervin Lo MD PATIENT NAME: Naveen Akins DATE: January 19, 2018 TIME: 9:01 AM Pager: [phone] Emergency General Surgery Service Pager: For questions or concerns Tue-Tue- please page [phone]. After 5pm and on Weekends and Holidays, please page [phone] if in ICU or [phone] if on RNF. PROGRESS Observed: 01/19/2018 Status: COMPLETED Source: [place] 6:24 AM [facility] OTHER CAMPUS REPOSITORY [facility] ID: [id number] Author: Dionicio (Res) Rodney Service: Vascular Surgery Author Type: Resident Type: Progress Notes Filed: 01/19/2018 8:48 AM Note Text: Vascular Surgery Progress Note SERVICE DATE: 01/19/2018 Vascular AND Thoracic Surgery Service Pager: For questions or concerns Tue-Tue- please page [phone]. After 5pm and on Weekends and Holidays, please page [phone] if in ICU or [phone] if on RNF. Subjective SUBJECTIVE: NAEON, weaning Levo, Precedex started --> patient fighting vent and biting down on ETT Diet: DIET NPO Parenteral Nutrition - Adult Objective OBJECTIVE: Vitals: Temp (24hrs), Av ?C (96.8 ?F), Min:35.8 ?C (96.4 ?F), Max:36.3 ?C (97.3 ?F) BP 128/64 Pulse (!) 58 Temp 36 ?C (96.8 ?F) Resp 18 Ht 172.7 cm (5' 8) Wt 104.2 kg (229 lb 11.5 oz) SpO2 99% BMI 34.93 kg/m? O2 Therapy: Ventilator IANDO: Date 01/18/18 07 - 01/19/18 0659 01/19/18 07 - 01/20/18 0659 Shift 2139-7163 2050-6566 6429-6659 24 Hour Total 9330-5453 4412-7806 4287-0194 24 Hour Total I N T A K E IV 1190.6 1190.6 Calcium IVPB 250 250 Fentanyl Volume 71.6 71.6 Amiodarone 176 176 NORepinephrine Volume 256 256 Propofol IV 37 37 Ampicillin/Sulbactam (Unasyn) IV 400 400 TPN/PPN 1210 1210 TPN 1210 1210 Shift Total 2400.6 2400.6 O U T P U T Tubes 650 270 920 Drain/Tube Output (Drain/Tube 01/12/18 0100 Hemovac Midline Anterior Abdomen) 650 250 900 Drain/Tube Output (Drain/Tube 01/12/18 Fecal Management System) 0 20 20 Output (GI Feed/Drain 01/12/18 0100) 0 0 Dialysis 1647 665 486 3031 Dialysis Output (Ultrafiltration) 1647 542 583 2560 Shift Total 2297 7680 495 7745 Weight (kg) 104.2 104.2 104.2 104.2 104.2 104.2 104.2 104.2 MEDICATIONS Current Facility-Administered Medications: Parenteral Nutrition - Adult INTRAVENOUS ONCE TPN (1800 START) dexmedetomidine 400 mcg in NaCl 0.9% 100 mL (PRECEDEX) 0.2- 0.7 mcg/kg/hr INTRAVENOUS CONTINUOUS white petrolatum-mineral Oil 83-15 % (LUBRIFRESH P.M.) BOTH EYES PRN propofol infusion (DIPRIVAN) 0-15 mcg/kg/min (Adjusted) INTRAVENOUS CONTINUOUS hydrocortisone sodium succinate (PF) 50 mg injection (Solu- CORTEF) 50 mg INTRAVENOUS q 8 H NaCl 0.9% iv infusion 100 mL/hr INTRAVENOUS CONTINUOUS heparin 1,000 unit/mL 4,000 Units injection 4,000 Units INTRAVENOUS 3 Times weekly with dialysis heparin 5,000 Units injection 5,000 Units SUBCUTANEOUS q 12 H ampicillin-sulbactam 3 g in NaCl 0.9% 100 mL MB+ (UNASYN) 3 g INTRAVENOUS q 6 H NaCl 0.9% 1,000 mL iv bolus 1,000 mL INTRAVENOUS PRN DIALYSIS prismaSOL BGK 4 K / 2.5 mEq Ca/Liter 5,000 mL 5,000 mL HEMODIALYSIS continuous (no dispense) prismaSOL BGK 4 K / 2.5 mEq Ca/Liter 5,000 mL 5,000 mL HEMODIALYSIS continuous (no dispense) prismaSOL BGK 4 K / 2.5 mEq Ca/Liter 5,000 mL 5,000 mL HEMODIALYSIS continuous (no dispense) dextrose 40 % 15 g 15 g ORAL PRN Or glucagon 1 mg injection (GLUCAGEN) 1 mg INTRAMUSCULAR PRN Or dextrose 50% in water 25 mL syringe 12.5 g INTRAVENOUS PRN magnesium sulfate 1 g in D5W 100 mL 1 g INTRAVENOUS PRN magnesium sulfate in water 2 g in sterile water 50 ml 2 g INTRAVENOUS PRN fentaNYL 20 mcg/mL iv infusion in NaCl 0.9% 100 mL 0-75 mcg/hr INTRAVENOUS CONTINUOUS pantoprazole 40 mg injection (PROTONIX) 40 mg INTRAVENOUS DAILY (6 AM) NORepinephrine 16 mg in D5W 250 mL (LEVOPHED) 0.6-40 mcg/min INTRAVENOUS CONTINUOUS Chlorhexidine Gluconate 0.12 % 15 mL (PERIDEX) 15 mL ORAL q 12 H Labs: Recent Labs 01/19/18 0450 01/18/18 2305 01/18/18 1630 01/18/18 1000 01/18/18 0500 01/18/18 0430 01/17/18 1630 01/17/18 0435 NA 139 -- 138 -- -- < > -- < > -- -- 137 K 4.3 -- 4.6 -- -- < > -- < > -- -- 4.0 CHLOR 105 -- 106 -- -- < > -- < > -- -- 106 CO2 25 -- 23 -- -- < > -- < > -- -- 24 BUN 22* -- 16 -- -- < > -- < > -- -- 12 CREAT 1.63* -- 1.57* -- -- < > -- < > -- -- 1.67* GLUC 215* -- 250* -- -- < > -- < > -- -- 171* ANION 13 -- 14 -- -- < > -- < > -- -- 11 CA 7.0* -- 6.6* -- -- < > -- < > -- -- 6.2* MG -- -- -- -- 2.4 -- -- -- -- -- 2.3 P -- -- -- -- 3.8 -- -- -- -- -- 3.3 ALB -- -- -- 1.7* -- -- -- -- -- -- -- AST -- -- -- 65* -- -- -- -- -- -- -- ALT -- -- -- 18 -- -- -- -- -- -- -- ALKPHOS -- -- -- 124* -- -- -- -- -- -- -- TBILI -- -- -- 4.3* -- -- -- -- -- -- -- WBC 8.08 8.35 8.87 9.65* -- < > -- < > -- < > 8.70 HB 9.5* 9.2* 9.4* 10.1* -- < > -- < > -- < > 10.6* HCT 28.5* 27.6* 29.1* 30.7* -- < > -- < > -- < > 30.5* PLT 56* 56* 55* 54* -- < > -- < > -- < > 59* PH -- -- -- -- -- -- 7.342* -- 7.335* < > 7.352 PCO2 -- -- -- -- -- -- 42.3 -- 42.6 < > 42.7 PO2 -- -- -- -- -- -- 98.3* -- 85.6 < > 78.8* BE -- -- -- -- -- -- -3.1 -- -3.5 < > -2.4 < > = values in this interval not displayed. Exam: GENERAL: No distress NEURO: pupils reactive/sluggish, not following commands, withdrawing and opening eyes to pain HEENT: normocephalic, atraumatic, +scleral icterus LUNGS: Unlabored breathing O2 Therapy: Ventilator CARDIAC: Regular rate and rhythm as above ABDOMEN: Soft, mild D, NT, no PS, Vac intact w SS output EXTREMITIES: MAK, No deformities, +Anasarca, palpable pulses SKIN: Skin color, texture, turgor normal, No rashes or lesions ASSESSMENT AND PLAN: Active Hospital Problems Diagnosis Date Noted - Ruptured abdominal aortic aneurysm (AAA) ([facility]) 01/12/2018 - Obesity, Class I, BMI 30-34.9 01/16/2018 - Encephalopathy 01/13/2018 - DIC (disseminated intravascular coagulation) ([facility]) 01/12/2018 - Hemorrhagic shock ([facility]) 01/12/2018 - Acute respiratory failure ([facility]) 01/12/2018 - Cardiac arrest ([facility]) 01/12/2018 - Hypernatremia 01/12/2018 - Hypokalemia 01/12/2018 - Hypomagnesemia 01/12/2018 - Hypophosphatemia 01/12/2018 - Hyperchloremia 01/12/2018 - AAA (abdominal aortic aneurysm, ruptured) ([facility]) 01/12/2018 Overview Note: Added automatically from request for surgery [id number] 77 year old male with Ruptured AAA s/p Emergent Repair, takeback washout, repair of serosal tears x2, on 01/12, hemorrhagic shock, acute resp failure with pulm edema, TERENCE, SVT, s/p Third Look Laparotomy and?washout on 01/14, fourth look, washout, vac change on 01/16 ? - Vent mgmt per MICU - NPO/TPN - Wean Levo as able - Acute blood loss and dilutional anemia and thrombocytopenia - monitor, transfuse prn - q6 labs - Cont Abthera VAC - TERENCE -->?CVVHD per?Nephro, diurese as tolerates - CXR with bilateral pulm edema/effusions, improving on left - Unasyn empirically per MICU - Hypocalcemia and phosphatemia?- replacing - Amio per Cards for SVT - cont scrotal support - Hyperbilirubinemia - likely transfusion related, consider RUQ US if fevers develop and LFTs/jaundice worsen ? OR this am for possible fascial closure, blood products on hold ?? Assessment and plan discussed with attending: Dr. Paniagua SIGNATURE: Dionicio Stevens MD PATIENT NAME: Naveen Akins DATE: January 19, 2018 TIME: 6:24 AM Vascular AND Thoracic Surgery Service Pager: For questions or concerns Mon-Fri 6a-5p please page [phone]. After 5pm and on Weekends and Holidays, please page [phone] if in ICU or [phone] if on RNF. CHEST 1 VIEW Observed: 01/19/2018 Status: F Source: [facility] 5:15 AM HEALTH SYSTEM REPOSITORY Performed at [facility] APPROVED BY: Yahir Grande MD EXAM TITLE: CHEST 1 VIEW DATE: 01/19/2018 04:59 COMPARISON: Prior studies with the most recent performed one day ago CLINICAL INDICATION/HISTORY: Evaluate tube or line position TECHNIQUE: AP upright portable chest FINDINGS: Pre-existing lines and tubes remain in unaltered position. There is no pneumothorax. Bilateral pleural effusion, larger on the right than the left. Diffuse infiltrative changes throughout the right lung and at the left lung base. Improved aeration within the left upper lobe. Stable mild cardiac enlargement. No acute bony abnormality. Old right scapular fracture. IMPRESSION: Improved aeration of the left upper lobe. Otherwise, no significant interval change. IONIZED CALCIUM Collected: 01/19/2018 Status: F Source: [facility] 4:50 AM HEALTH SYSTEM REPOSITORY TYPE CODE TESTS RESULT OUT OF REFERENCE UNITS RANGE LAB CAION(LOINC 4.43-4.93 mg/dL ) Low Ionized 4.16 Calcium LAB PHCAI(LOINC 7.320-7.420 ) pH 7.325 LAB CAPH(LOINC) 4.36-4.73 mg/dL Low Ionized 4.00 Ca,PH7.4 Performed By: #### IONCA #### [facility] [address] [place] [address] HEMOGRAM/DIFF Collected: 01/19/2018 Status: F Source: [facility] 4:50 AM [facility] REPOSITORY TYPE CODE TESTS RESULT OUT OF REFERENCE UNITS RANGE LAB WBC(LOINC) 4.23-9.07 thou/cmm WBC 8.08 LAB RBC(LOINC) 4.63-6.08 mil/cmm Low RBC 3.34 LAB HGB(LOINC) 13.7-17.5 g/dL Low Hgb 9.5 LAB HCT(LOINC) 40.1-51.0 % Low Hct 28.5 LAB MCV(LOINC) 83.2-95.6 fl MCV 85.3 LAB MCH(LOINC) 25.7-32.2 pg MCH 28.4 LAB MCHC(LOINC 32.3-36.5 % ) MCHC 33.3 LAB RDW(LOINC) 11.6-14.4 % RDW High 17.8 LAB RDWSD(LOIN 36.1-45.8 fl C) RDW SD High 55.8 LAB PLT(LOINC) 141-365 thou/cmm Low Platelet 56 LAB MPV(LOINC) 8.7-12.0 fl MPV High 12.7 LAB NRBCR(LOIN 0.0-0.2 % C) High Nucleated RBC % 0.4 LAB NRBCA(LOIN 0.00-0.01 thou/cmm C) High Nucleated RBC 0.03 Absolute LAB SEG(LOINC) % Seg Neutrophil 79.0 LAB IGRE(LOINC % ) Immature Grans 8.50 LAB LYMPH(LOIN % C) Lymphocyte 6.7 LAB MNO(LOINC) % Monocyte 5.3 LAB EOSIN(LOIN % C) Eosinophil 0.1 LAB BASO(LOINC % ) Basophil 0.4 LAB SEGN(LOINC 1.78-5.38 thou/cmm ) Abs. High Neut (ANC) 6.38 LAB IGAB(LOINC 0.00-0.05 thou/cmm ) Abs High Immature Grans 0.69 LAB LYMN(LOINC 0.84-2.85 thou/cmm ) Low Abs. Lymph 0.54 LAB MONON(LOIN 0.30-0.82 thou/cmm C) Abs. Rincon 0.43 LAB EOSN(LOINC 0.04-0.54 thou/cmm ) Low Abs. Eosin 0.01 LAB BASON(LOIN 0.01-0.08 thou/cmm C) Abs. Baso 0.03 Performed By: #### CBCD1 #### [place] [id number] BASIC PANEL Collected: 01/19/2018 Status: F Source: [facility] 4:50 AM HEALTH SYSTEM REPOSITORY TYPE CODE TESTS RESULT OUT OF REFERENCE UNITS RANGE LAB NA(LOINC) 136-145 mEq/L Sodium Blood 139 LAB K(LOINC) 3.5-5.1 mEq/L Potassium Blood 4.3 LAB CL(LOINC) 98-107 mEq/L Chloride Blood 105 LAB CO2(LOINC) 21-32 mEq/L CO2 Blood 25 LAB GLU(LOINC) 70-99 mg/dL Glucose High Blood 215 LAB BUN(LOINC) 7-18 mg/dL BUN High Blood 22 LAB CREA(LOINC 0.67-1.17 mg/dL ) High Creatinine Blood 1.63 LAB CA(LOINC) 8.5-10.1 mg/dL Low Calcium Blood 7.0 LAB ANGAP(LOIN 8-16 C) Anion Gap 13 Performed By: #### P8 #### [place] [address] MAGNESIUM BLOOD Collected: 01/19/2018 Status: F Source: [facility] 4:50 AM HEALTH SYSTEM REPOSITORY TYPE CODE TESTS RESULT OUT OF REFERENCE UNITS RANGE LAB MAG(LOINC) 1.6-2.6 mg/dL Magnesium Blood 2.6 Performed By: #### MAG #### [place] [address] PHOSPHORUS BLOOD Collected: 01/19/2018 Status: F Source: [facility] 4:50 AM HEALTH SYSTEM REPOSITORY TYPE CODE TESTS RESULT OUT OF REFERENCE UNITS RANGE LAB PHOS(LOINC 2.5-4.9 mg/dL ) Phosphorus Blood 2.7 Performed By: #### PHOS #### [place] [address] OPERATIVE NO Observed: 01/19/2018 Status: COMPLETED Source: [place] 12:00 AM CLINIC OTHER CAMPUS REPOSITORY O ID: [id number] Author: Costa Miguel Service: Gastroenterology Surgery Author Type: Physician Type: Operative Report Filed: 01/20/2018 4:15 PM Note Text: [facility] - Operative Report SURGEON: Costa Miguel MD PATIENT NAME: NAVEEN AKINS CSN: [id number] DATE OF SURGERY: 01/19/2018 DATE OF : 1940 SEX/AGE: M/77 PATIENT TYPE: I HOSP SVC: LICO LOCATION: [id number] DATE OF SURGERY: 01/19/2018 SURGEON: Costa Miguel MD PREOPERATIVE DIAGNOSIS: Open abdomen status post rupture of aneurysm. POSTOPERATIVE DIAGNOSIS: Open abdomen status post rupture of aneurysm. PROCEDURE: Exploratory laparotomy, partial closure of open abdomen and placement of ABThera wound VAC. VISUAL ARTS TEACHER: Hermelinda Ferrell MD; and Haliey, neurosurgical physician assistant. ANESTHESIA: General. INDICATIONS: Open abdomen, critically ill patient, status post multiple wound VAC changes. Plan is to try and attempt closure today. Risks, benefits, and options were discussed. DETAILS OF PROCEDURE: The patient was taken to the operating room, prepared in usual fashion, anesthetized, prepped and draped. The old wound VAC was removed. We performed exploration running the bowel from the ligament of Treitz to the colon. There was evident of repair in ligament of Treitz that was intact. There were no concerns. The colon was visualized in its entirety, appeared normal. Stomach was visualized as was the liver. We irrigated the abdomen in all 4 quadrants with saline. There was minimal debris. We placed the omentum back over the bowel and then we started closing superiorly initially with [id number] sutures of #1 PDS, switching to running looped #1 PDS, placing retention sutures of 5-0 Ethibond as we went along. Two retention sutures were placed superiorly. We began inferiorly, in the same fashion placed 1 retention suture and ran it to #1 looped PDS. The patient began to have issues with saturation and blood pressure, so we decided not to close them entirely. We left the small segment, probably 6 inches left open, replaced the wound VAC in a standard fashion, and this area had no leak. The patient was taken back to the CVICU in critical condition. He tolerated the procedure generally well. I was present for the critical and coleman portions of the surgery and I was immediately available to provide assistance. Costa Miguel MD Surgery WJC:modl /[id number] HEMOGRAM Collected: 01/18/2018 Status: F Source: [facility] 11:05 PM HEALTH SYSTEM REPOSITORY TYPE CODE TESTS RESULT OUT OF REFERENCE UNITS RANGE LAB WBC(LOINC) 4.23-9.07 thou/cmm WBC 8.35 LAB RBC(LOINC) 4.63-6.08 mil/cmm Low RBC 3.25 LAB HGB(LOINC) 13.7-17.5 g/dL Low Hgb 9.2 LAB HCT(LOINC) 40.1-51.0 % Low Hct 27.6 LAB MCV(LOINC) 83.2-95.6 fl MCV 84.9 LAB MCH(LOINC) 25.7-32.2 pg MCH 28.3 LAB MCHC(LOINC 32.3-36.5 % ) MCHC 33.3 LAB RDW(LOINC) 11.6-14.4 % RDW High 17.6 LAB RDWSD(LOIN 36.1-45.8 fl C) RDW High SD 54.9 LAB PLT(LOINC) 141-365 thou/cmm Low Platelet 56 LAB MPV(LOINC) 8.7-12.0 fl MPV High 12.6 LAB NRBCR(LOIN 0.0-0.2 % C) High Nucleated RBC % 0.4 LAB NRBCA(LOIN 0.00-0.01 thou/cmm C) High Nucleated RBC 0.03 Absolute Performed By: #### CBC1 #### [place] [address] PROGRESS Observed: 01/18/2018 Status: COMPLETED Source: [place] 10:02 PM [facility] OTHER CAMPUS REPOSITORY [facility] ID: [id number] Author: Herman Sutton Service: Critical Care Author Type: Physician Type: Progress Notes Filed: 01/18/2018 10:07 PM Note Text: MICU - PROGRESS NOTE SERVICE DATE: 01/18/2018 SERVICE TIME: 10:03 PM Admission Date: 01/12/2018 AGE: [age] year old LOS: 6 days Subjective REASON FOR ICU ADMISSION: Patient remains critically ill, intubated on mechanical ventilation. ? Remains in circulatory shock on pressors but HD better, solucortef started yesterday Still difficult to do SAT as he gets agitated Objective PROBLEMS: ACTIVE PROBLEM LIST Gallstone Pancreatitis Ruptured Abdominal Aortic Aneurysm (Aaa) (Hcc) Dic (Disseminated Intravascular Coagulation) (Hcc) Hemorrhagic Shock (Hcc) Acute Respiratory Failure (Hcc) Cardiac Arrest (Hcc) Hypernatremia Hypokalemia Hypomagnesemia Hypophosphatemia Hyperchloremia Encephalopathy Aaa (Abdominal Aortic Aneurysm, Ruptured) (Hcc) Obesity, Class I, Bmi 30-34.9 PAST MEDICAL HISTORY Diagnosis Date - DIC (disseminated intravascular coagulation) (HCC) 01/12/2018 PAST SURGICAL HISTORY Procedure Laterality Date - LAP CHOLECYSTECT/CHOLANGIOGRAPHY 05-28-09 - REPAIR UMBILICAL NATAN,5+Y/O,REDUC 05-28-09 Social History Marital status: Spouse name: Shelly Years of education: 11 Number of children: 4 Occupational History 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 BP 119/48 Pulse 58 Temp (Src) 96.8 (Axillary) Resp 18 Ht 5' 8 (1.73m) Wt 229 lb 11.5 oz (104.2kg) SpO2 99% BMI 34.94 kg/(m2). Temp (24hrs), Av.1 ?C (96.9 ?F), Min:35.8 ?C (96.4 ?F), Max:36.3 ?C (97.3 ?F) NET FLUID BALANCE Intake/Output Summary (Last 24 hours) at 01/18/18 2203 Last data filed at 01/18/18 1900 Gross per 24 hour Intake 2400.6 ml Output 4656 ml Net -2255.4 ml MEDICATIONS Current Facility-Administered Medications: Parenteral Nutrition - Adult INTRAVENOUS ONCE TPN (1800 START) dexmedetomidine 400 mcg in NaCl 0.9% 100 mL (PRECEDEX) 0.2- 0.7 mcg/kg/hr INTRAVENOUS CONTINUOUS white petrolatum-mineral Oil 83-15 % (LUBRIFRESH P.M.) BOTH EYES PRN propofol infusion (DIPRIVAN) 0-15 mcg/kg/min (Adjusted) INTRAVENOUS CONTINUOUS hydrocortisone sodium succinate (PF) 50 mg injection (Solu- CORTEF) 50 mg INTRAVENOUS q 8 H NaCl 0.9% iv infusion 100 mL/hr INTRAVENOUS CONTINUOUS heparin 1,000 unit/mL 4,000 Units injection 4,000 Units INTRAVENOUS 3 Times weekly with dialysis amiodarone 360 mg in D5W 200 mL (NEXTERONE) 0.5-1 mg/min INTRAVENOUS CONTINUOUS heparin 5,000 Units injection 5,000 Units SUBCUTANEOUS q 12 H ampicillin-sulbactam 3 g in NaCl 0.9% 100 mL MB+ (UNASYN) 3 g INTRAVENOUS q 6 H NaCl 0.9% 1,000 mL iv bolus 1,000 mL INTRAVENOUS PRN DIALYSIS prismaSOL BGK 4 K / 2.5 mEq Ca/Liter 5,000 mL 5,000 mL HEMODIALYSIS continuous (no dispense) prismaSOL BGK 4 K / 2.5 mEq Ca/Liter 5,000 mL 5,000 mL HEMODIALYSIS continuous (no dispense) prismaSOL BGK 4 K / 2.5 mEq Ca/Liter 5,000 mL 5,000 mL HEMODIALYSIS continuous (no dispense) dextrose 40 % 15 g 15 g ORAL PRN Or glucagon 1 mg injection (GLUCAGEN) 1 mg INTRAMUSCULAR PRN Or dextrose 50% in water 25 mL syringe 12.5 g INTRAVENOUS PRN magnesium sulfate 1 g in D5W 100 mL 1 g INTRAVENOUS PRN magnesium sulfate in water 2 g in sterile water 50 ml 2 g INTRAVENOUS PRN fentaNYL 20 mcg/mL iv infusion in NaCl 0.9% 100 mL 0-75 mcg/hr INTRAVENOUS CONTINUOUS pantoprazole 40 mg injection (PROTONIX) 40 mg INTRAVENOUS DAILY (6 AM) NORepinephrine 16 mg in D5W 250 mL (LEVOPHED) 0.6-40 mcg/min INTRAVENOUS CONTINUOUS Chlorhexidine Gluconate 0.12 % 15 mL (PERIDEX) 15 mL ORAL q 12 H Lines, Drains, and Airways Line Central Line Double Lumen 01/12/18 0239 Right Neck 6 days Dialysis / Apheresis Double Lumen 01/13/18 1136 Left Neck 5 days Drain Drain/Tube 01/12/18 0100 Hemovac Midline Anterior Abdomen 6 days Drain/Tube 01/12/18 Fecal Management System 6 days GI Feed/Drain 01/12/18 0100 6 days Airway Airway Endotracheal Tube 01/12/18 1138 6 days PHYSICAL EXAM PERFORMED: General: sedated intubated , no vent dysynchrony Cardiovascular:?Regular rhythm, on amiodarone drip Respiratory:?Rhonchi bilaterally Abdomen: Soft and Nontender Extremities:?Edema-?No??? Neurologic:?Sedated Respiratory/Nursing Documentation: O2 Therapy: Ventilator (01/18/182045) Invasive Ventilator Mode: Pressure Regulated Volume Control (01/18/182045) Set Ventilator Respiratory Rate (BPM): 18 (01/18/182045) Total Respiratory Rate (BPM): 18 (01/18/182045) Tidal Volume Set (mL): 500 (01/18/182045) Exhaled Tidal Volume (mL): 521 (01/18/182045) Minute Volume (L): 9.9 (01/18/182045) Peak Inspiratory Pressure (cm H2O): 20 (01/18/182045) PEEP/CPAP (cm H2O): 5 (01/18/182045) HEMODYNAMIC DATA: Reviewed NUTRITION: TPN DATA: Diagnostic tests reviewed for today's visit, films/specimens were personally reviewed by me: Most recent labs and imaging results. LABS: Recent Labs 01/18/18 1630 01/18/18 1000 01/18/18 0500 WBC 8.87 9.65* -- RBC 3.41* 3.59* -- HB 9.4* 10.1* -- HCT 29.1* 30.7* -- MCV 85.3 85.5 -- PLT 55* 54* -- GLUC 250* -- -- BUN 16 -- -- CREAT 1.57* -- -- NA 138 -- -- K 4.6 -- -- CHLOR 106 -- -- CO2 23 -- -- TPROT -- 4.8* -- ALB -- 1.7* -- CA 6.6* -- -- ALKPHOS -- 124* -- TBILI -- 4.3* -- AST -- 65* -- ALT -- 18 -- MG -- -- 2.4 ABG: Recent Labs 01/18/18 0430 01/17/18 1630 01/17/18 1030 PH 7.342* 7.335* 7.286* PO2 98.3* 85.6 91.0 PCO2 42.3 42.6 51.0* Assessment/Plan IMPRESSION: PROBLEMS: Ruptured AAA s/p surgical repair s/p Cardiac Arrest Persistent Circulatory Shock Acute Hypoxic Respiratory Failure on mechanical ventilation Encephalopathy??? TERENCE on CKD?- Suspected ATN - On CRRT Lactic Acidosis - Resolved Sinus Tachycardia Thrombocytopenia SVT - Resolved MMP ? PLANS FOR TODAY: ? Continue?mechanical ventilation, adjust as needed,, no dysynchrony Wean pressors as tolerated, goal MAP > 65mmHg Cultures negative, remains on unasyn empirically. Will stop propofol and switch to precedex, HD better with hydrocortisone EEG impressive for severe encephalopathy, no evidence of epileptiform activity/seizures SAT daily AAA management/post-operative care per vascular surgery Continue w/ amiodarone gtt, monitor rhythm. ?No further runs of SVT Cardiology consulted, appreciate recs Continue TPN SCDs/PPI/ Heparin SQ per primary team Guarded prgnosis ? Critical Care Documentation:?The patient has the following organ/system impairment(s): ?Circulatory shock, Complex life-threatening ?medical problem(s) and Respiratory failure (Acute, with Hypoxemia) ? ? This patient has a high probability of sudden, clinically significant deterioration, which requires the highest level of physician preparedness to intervene urgently. ?I managed/supervised life or organ supporting interventions that required frequent physician assessment. ?I devoted my full attention to the direct care of this patient for the amount of time indicated below. ?Time I spent with family or surrogate(s) is included only if the patient was incapable of providing the necessary information or participating in medical decision making. ?Time devoted to teaching is not included. ? Critical Care Time devoted to this patient is ?30 minutes SIGNATURE: Herman Sutton MD PATIENT NAME: Naveen Akins DATE: January 18, 2018 TIME: 10:03 PM ALLIED HEALTH Observed: 01/18/2018 Status: COMPLETED Source: [place] 6:15 PM CLINIC OTHER CAMPUS REPOSITORY [facility] ID: [id number] Author: Gilbert DelarosalaChaplain Mike Service: Spiritual Care Author Type: Envelope Stamping Machine Operator Type: Allied Health Filed: 01/18/2018 6:21 PM Note Text: SPIRITUALCARE Spiritual Care Visit- Brief Note Name: Naveen Akins Date: January 18, 2018 Notes: Pre-surgery retail center receptionist visit: Envelope Stamping Machine Operator introduced himself and role/availability to Pt's daughter who was standing at bedside. Pt partially alert and unable to respond verbally. Pt's daughter indicated the Pt has endured 5 previous surgeries and is scheduled for his 6th the following day. Envelope Stamping Machine Operator listened emphatically and confirmed how difficult the journey has been. Pt's daughter stated the family is well supported and has been present around the clock. Envelope Stamping Machine Operator provided spiritual comfort and prayers as desired. Pt's daughter grateful for retail center receptionist visit/prayers and provided retail center receptionist with a hug. Pt/family would benefit from ongoing SC/support. Envelope Stamping Machine Operator to remain available. Envelope Stamping Machine Operator Signature: Chaplain Familia To contact the Spiritual Care Department: Please call [phone] or Page the On-Call Envelope Stamping Machine Operator at pager [phone] Thank you for the opportunity to be of service. This is an electronically created document. IF PRINTED, PLEASE DO NOT REMOVE FROM THE CHART OR MODIFY PRINTED COPY. PROGRESS Observed: 01/18/2018 Status: COMPLETED Source: [place] 5:29 PM CLINIC OTHER CAMPUS REPOSITORY O ID: [id number] Author: Shen Lorenzo Service: Nephrology Author Type: Physician Type: Progress Notes Filed: 01/18/2018 5:37 PM Note Text: Nephrology Progress Note Following for TERENCE. Pt is sedated and is on ventilator. Cannot obtain ROS. Current Inpatient Medications: Current Facility-Administered Medications Ordered in Epic: Parenteral Nutrition - Adult INTRAVENOUS ONCE TPN (1800 START) H Edwin Dudley dexmedetomidine 400 mcg in NaCl 0.9% 100 mL (PRECEDEX) 0.2- 0.7 mcg/kg/hr INTRAVENOUS CONTINUOUS Paulo (Meter Repair Shop Supervisor) [place] Last Rate: 2.61 mL/hr at 01/18/18 1200 0.1 mcg/kg/hr at 01/18/18 1200 propofol infusion (DIPRIVAN) 0-15 mcg/kg/min (Adjusted) INTRAVENOUS CONTINUOUS Dionicio (Res) Stevens Stopped at 01/18/18 0850 hydrocortisone sodium succinate (PF) 50 mg injection (Solu- CORTEF) 50 mg INTRAVENOUS q 8 H Shen Lorenzo 50 mg at 01/18/18 1336 Parenteral Nutrition - Adult INTRAVENOUS ONCE TPN (1800 START) H Edwin Dudley Last Rate: 100 mL/hr at 01/18/18 0800 NaCl 0.9% iv infusion 100 mL/hr INTRAVENOUS CONTINUOUS Herman A Herman Stopped at 01/17/18 2000 heparin 1,000 unit/mL 4,000 Units injection 4,000 Units INTRAVENOUS 3 Times weekly with dialysis Troy Godoy 4,000 Units at 01/17/18 2226 amiodarone 360 mg in D5W 200 mL (NEXTERONE) 0.5-1 mg/min INTRAVENOUS CONTINUOUS Paulo (Meter Repair Shop Supervisor) [place] Last Rate: 16.67 mL/hr at 01/18/18 1557 0.5 mg/min at 01/18/18 1557 heparin 5,000 Units injection 5,000 Units SUBCUTANEOUS q 12 H Christopher (Res) Wally 5,000 Units at 01/18/18 1035 ampicillin-sulbactam 3 g in NaCl 0.9% 100 mL MB+ (UNASYN) 3 g INTRAVENOUS q 6 H Chente Whittaker Last Rate: 200 mL/hr at 01/18/18 1145 3 g at 01/18/18 1145 NaCl 0.9% 1,000 mL iv bolus 1,000 mL INTRAVENOUS PRN DIALYSIS Shen Lorenzo prismaSOL BGK 4 K / 2.5 mEq Ca/Liter 5,000 mL 5,000 mL HEMODIALYSIS continuous (no dispense) Shen Lorenzo Last Rate: 700 mL/hr at 01/16/18 1300 5,000 mL at 01/18/18 1146 prismaSOL BGK 4 K / 2.5 mEq Ca/Liter 5,000 mL 5,000 mL HEMODIALYSIS continuous (no dispense) Shen Lorenzo Last Rate: 700 mL/hr at 01/16/18 1300 5,000 mL at 01/18/18 1146 prismaSOL BGK 4 K / 2.5 mEq Ca/Liter 5,000 mL 5,000 mL HEMODIALYSIS continuous (no dispense) Shen Lorenzo Last Rate: 700 mL/hr at 01/16/18 1300 5,000 mL at 01/18/18 1146 dextrose 40 % 15 g 15 g ORAL PRN Jack Regula Or glucagon 1 mg injection (GLUCAGEN) 1 mg INTRAMUSCULAR PRN Jack Regula Or dextrose 50% in water 25 mL syringe 12.5 g INTRAVENOUS PRN Jack Regula magnesium sulfate 1 g in D5W 100 mL 1 g INTRAVENOUS PRN Emilie (Res) Cardella Last Rate: 100 mL/hr at 01/15/18 0016 1 g at 01/15/18 0016 magnesium sulfate in water 2 g in sterile water 50 ml 2 g INTRAVENOUS PRN Emilie (Res) Cardella Last Rate: 25 mL/hr at 01/13/18 1004 2 g at 01/13/18 1004 fentaNYL 20 mcg/mL iv infusion in NaCl 0.9% 100 mL 0-75 mcg/hr INTRAVENOUS CONTINUOUS Dionicio (Res) Stevens Last Rate: 3.75 mL/hr at 01/18/18 0800 75 mcg/hr at 01/18/18 0800 pantoprazole 40 mg injection (PROTONIX) 40 mg INTRAVENOUS DAILY (6 AM) Emilie (Res) Cardella 40 mg at 01/18/18 0649 NORepinephrine 16 mg in D5W 250 mL (LEVOPHED) 0.6-40 mcg/min INTRAVENOUS CONTINUOUS Chente R Cucci Last Rate: 7.5 mL/hr at 01/18/18 1341 8 mcg/min at 01/18/18 1341 Chlorhexidine Gluconate 0.12 % 15 mL (PERIDEX) 15 mL ORAL q 12 H Elder Yu) Kalee 15 mL at 01/18/18 0840 No current [facility]-ordered outpatient prescriptions on file. Vitals: BP 121/57 Pulse 70 Temp (!) 35.8 ?C (96.4 ?F) Resp 18 Ht 172.7 cm (5' 8) Wt 104.2 kg (229 lb 11.5 oz) SpO2 98% BMI 34.93 kg/m? BLOOD PRESSURE RANGE: Systolic (24hrs), Av , Min:96 , Max:187 ; Diastolic (24hrs), Av, Min:44, Max:81 24HR INTAKE/OUTPUT: Intake/Output Summary (Last 24 hours) at 01/18/18 1729 Last data filed at 01/18/18 1700 Gross per 24 hour Intake 3600.6 ml Output 5202 ml Net -1601.4 ml Physical exam: Constitutional: Ill appearing. Heent: intubated Cardiovascular: S1, S2 normal Respiratory: Coarse BS bilaterally Abdomen: +bs, soft, nt, nd Ext: 2+ lower extremity edema/anasarca ? Data: Labs: Recent Labs 01/18/18 1000 01/18/18 0435 01/17/18 1639 WBC 9.65* 8.14 9.56* HB 10.1* 10.5* 11.0* HCT 30.7* 31.2* 32.8* MCV 85.5 84.8 85.2 PLT 54* 43* 54* Recent Labs 01/18/18 0500 01/18/18 0435 01/17/18 1650 01/17/18 0435 01/16/18 0430 NA -- 139 138 137 < > 137 K -- 4.5 3.9 4.0 < > 3.9 CO2 -- 23 23 24 < > 23 MG 2.4 -- -- 2.3 -- 2.2 BUN -- 14 11 12 < > 11 CREAT -- 1.70* 1.60* 1.67* < > 1.75* CA -- 6.9* 6.9* 6.2* < > 6.7* < > = values in this interval not displayed. Assessment and Plan 1. Acute kidney injury on chronic kidney disease stage 3. Baseline SCr is 1.36 mg/dL on 11/14/17. CKD is likely due to nephrosclerosis related to PAD. TERENCE is 2/2 ischemic ATN from shock. Pt remains anuric. Continue to require pressor support but decreased amount compared to 01/17/18. Effluent dose is adequate at 26 ml/kg/min (had to decrease Qb on blood pump because of high venous pressure; if this continues, he may need a new or longer dialysis cathteter). UF rate is back to 50 mL/hr since BP is better. ? 2. Shock. Likely hemorrhagic shock-massive blood loss from ruptured AAA. Still on pressor, but decreased requirement. Able to start UF and come down on IVF today without hypotension. So, pt may have relative adrenal insufficiency-continue Solu-cortef. D/w with Dr. Sutton yeswterday. ? 5. Ruptured AAA. s/p repair 01/12/18. Management as per vascular surgery. ? 6. Acute hypoxic respiratory failure. Ventilator dependent. Vent management as per ICU. UF at 50 ml/he. See above. D/w Dr. Paniagua. Please do not hesitate to contact me at [phone] if there is any question or concern. Rosanna Talbert MD (Shen Lorenzo) VENOUS BLOOD GAS Collected: 01/18/2018 Status: F Source: [facility] 4:30 PM HEALTH SYSTEM REPOSITORY TYPE CODE TESTS RESULT OUT OF REFERENCE UNITS RANGE LAB TEMPC(LOIN C) Temperature 37.0 LAB PHV(LOINC) 7.320-7.420 pH Venous 7.333 LAB PCO2I(LOIN 38.0-49.0 mm Hg C) PCO2 Venous 47.2 LAB PO2VI(LOIN 35.0-45.0 mm Hg C) PO2 Venous High 71.8 LAB HCO3C(LOIN 22.0-26.0 mEq/L C) HCO3- 24.5 LAB BASE(LOINC -2.5 to 2.5 mEq/L ) Base Excess -1.5 LAB O2%V(LOINC 70.0-80.0 % ) O2% Sat High Venous 94.3 Performed By: #### VBG #### [place] [address] BASIC PANEL Collected: 01/18/2018 Status: F Source: [facility] 4:30 [facility] REPOSITORY TYPE CODE TESTS RESULT OUT OF REFERENCE UNITS RANGE LAB NA(LOINC) 136-145 mEq/L Sodium Blood 138 LAB K(LOINC) 3.5-5.1 mEq/L Potassium Blood 4.6 Result Comment: SPECIMEN SLIGHTLY HEMOLYZED LAB CL(LOINC) 98-107 mEq/L Chloride Blood 106 LAB CO2(LOINC) 21-32 mEq/L CO2 Blood 23 LAB GLU(LOINC) 70-99 mg/dL Glucose High Blood 250 LAB BUN(LOINC) 7-18 mg/dL BUN Blood 16 LAB CREA(LOINC) 0.67-1.17 mg/dL Creatinine High Blood 1.57 LAB CA(LOINC) 8.5-10.1 mg/dL Calcium Low Blood 6.6 LAB ANGAP(LOINC) 8-16 Anion Gap 14 Performed By: #### P8 #### [place] [address] HEMOGRAM Collected: 01/18/2018 Status: F Source: [facility] 4:30 PM [place] [facility] REPOSITORY TYPE CODE TESTS RESULT OUT OF REFERENCE UNITS RANGE LAB WBC(LOINC) 4.23-9.07 thou/cmm WBC 8.87 LAB RBC(LOINC) 4.63-6.08 mil/cmm Low RBC 3.41 LAB HGB(LOINC) 13.7-17.5 g/dL Low Hgb 9.4 LAB HCT(LOINC) 40.1-51.0 % Low Hct 29.1 LAB MCV(LOINC) 83.2-95.6 fl MCV 85.3 LAB MCH(LOINC) 25.7-32.2 pg MCH 27.6 LAB MCHC(LOINC) 32.3-36.5 % MCHC 32.3 LAB RDW(LOINC) 11.6-14.4 % High RDW 17.5 LAB RDWSD(LOINC 36.1-45.8 fl ) High RDW SD 54.9 LAB PLT(LOINC) 141-365 thou/cmm Low Platelet 55 Result Comment: Smear scanned tech agrees with platelet count LAB MPV(LOINC) 8.7-12.0 fl MPV 12.0 LAB NRBCR(LOINC) 0.0-0.2 % High Nucleated RBC % 0.3 LAB NRBCA(LOINC) 0.00-0.01 thou/cmm High Nucleated RBC Absolute 0.03 Performed By: #### CBC1 #### [facility] [address] [place] [address] PROGRESS Observed: 01/18/2018 Status: COMPLETED Source: [place] 12:17 PM CLINIC OTHER CAMPUS REPOSITORY [facility] ID: [id number] Author: Mervin Lo Service: General Surgery Author Type: Resident Type: Progress Notes Filed: 01/18/2018 12:27 PM Note Text: Attestation signed by Costa Miguel at 01/18/2018 12:27 PM I saw and evaluated the patient. I reviewed the resident's note and agree. Costa Miguel MD, [facility], [facility] PROGRESS NOTES SERVICE DATE: 01/18/2018 Subjective SUBJECTIVE: No acute events. Denies N/V/CP/SOB Diet: DIET NPO Parenteral Nutrition - Adult Parenteral Nutrition - Adult Objective OBJECTIVE: Vitals: Temp (24hrs), Av.1 ?C (96.9 ?F), Min:35.9 ?C (96.6 ?F), Max:36.3 ?C (97.3 ?F) BP (!) 101/47 Pulse 67 Temp 36 ?C (96.8 ?F) Resp 18 Ht 172.7 cm (5' 8) Wt 104.2 kg (229 lb 11.5 oz) SpO2 97% BMI 34.93 kg/m? O2 Therapy: Ventilator IANDO: Date 01/17/18699 - 01/18/1859 01/18/18699 - 01/19/18 0659 Shift 8471-3233 5607-4715 5401-2846 24 Hour Total 3634-0837 4495-1200 1464-2367 24 Hour Total I N T A K E IV 184 1545 1729 1190.6 1190.6 NS 0.9% 94 1000 1094 Calcium IVPB 250 250 Fentanyl Volume 15 15 71.6 71.6 Amiodarone 16 16 176 176 NORepinephrine Volume 40 280 320 256 256 Propofol IV 19 65 84 37 37 Ampicillin/Sulbactam (Unasyn) IV 200 200 400 400 TPN/PPN 100 1200 1300 1210 1210 TPN 100 1200 1300 1210 1210 Shift Total 284 2745 3029 2400.6 2400.6 O U T P U T Urine 32 28 60 Tube Output ([REMOVED] Indwelling Urinary Catheter 01/12/18 1108 Assessment Temperature Monitoring 16 Fr 01/17/18 1800) 32 28 60 Tubes 1100 1100 1000 3200 450 450 Drain/Tube Output (Drain/Tube 01/12/18 0100 Hemovac Midline Anterior Abdomen) 1100 1100 1000 3200 450 450 Drain/Tube Output (Drain/Tube 01/12/18 Fecal Management System) 0 0 0 0 0 Output (GI Feed/Drain 01/12/18 0100) 0 0 0 0 0 Dialysis 2138 795 236 0056 1068 1068 Dialysis Output (Ultrafiltration) 2138 474 644 4127 1068 1068 Shift Total 3270 1841 1367 6478 1518 1518 Weight (kg) 104.2 104.2 104.2 104.2 104.2 104.2 104.2 104.2 MEDICATIONS Current Facility-Administered Medications: dexmedetomidine 400 mcg in NaCl 0.9% 100 mL (PRECEDEX) 0.2- 0.7 mcg/kg/hr INTRAVENOUS CONTINUOUS propofol infusion (DIPRIVAN) 0-15 mcg/kg/min (Adjusted) INTRAVENOUS CONTINUOUS hydrocortisone sodium succinate (PF) 50 mg injection (Solu- CORTEF) 50 mg INTRAVENOUS q 8 H Parenteral Nutrition - Adult INTRAVENOUS ONCE TPN (1800 START) NaCl 0.9% iv infusion 100 mL/hr INTRAVENOUS CONTINUOUS heparin 1,000 unit/mL 4,000 Units injection 4,000 Units INTRAVENOUS 3 Times weekly with dialysis amiodarone 360 mg in D5W 200 mL (NEXTERONE) 0.5-1 mg/min INTRAVENOUS CONTINUOUS heparin 5,000 Units injection 5,000 Units SUBCUTANEOUS q 12 H ampicillin-sulbactam 3 g in NaCl 0.9% 100 mL MB+ (UNASYN) 3 g INTRAVENOUS q 6 H NaCl 0.9% 1,000 mL iv bolus 1,000 mL INTRAVENOUS PRN DIALYSIS prismaSOL BGK 4 K / 2.5 mEq Ca/Liter 5,000 mL 5,000 mL HEMODIALYSIS continuous (no dispense) prismaSOL BGK 4 K / 2.5 mEq Ca/Liter 5,000 mL 5,000 mL HEMODIALYSIS continuous (no dispense) prismaSOL BGK 4 K / 2.5 mEq Ca/Liter 5,000 mL 5,000 mL HEMODIALYSIS continuous (no dispense) dextrose 40 % 15 g 15 g ORAL PRN Or glucagon 1 mg injection (GLUCAGEN) 1 mg INTRAMUSCULAR PRN Or dextrose 50% in water 25 mL syringe 12.5 g INTRAVENOUS PRN magnesium sulfate 1 g in D5W 100 mL 1 g INTRAVENOUS PRN magnesium sulfate in water 2 g in sterile water 50 ml 2 g INTRAVENOUS PRN fentaNYL 20 mcg/mL iv infusion in NaCl 0.9% 100 mL 0-75 mcg/hr INTRAVENOUS CONTINUOUS pantoprazole 40 mg injection (PROTONIX) 40 mg INTRAVENOUS DAILY (6 AM) NORepinephrine 16 mg in D5W 250 mL (LEVOPHED) 0.6-40 mcg/min INTRAVENOUS CONTINUOUS Chlorhexidine Gluconate 0.12 % 15 mL (PERIDEX) 15 mL ORAL q 12 H Labs: Recent Labs 01/18/18 1000 01/18/18 0500 01/18/18 0435 01/18/18 0430 01/17/18 1650 01/17/18 1630 01/17/18 0435 NA -- -- 139 -- 138 -- -- -- 137 K -- -- 4.5 -- 3.9 -- -- -- 4.0 CHLOR -- -- 105 -- 104 -- -- -- 106 CO2 -- -- 23 -- 23 -- -- -- 24 BUN -- -- 14 -- 11 -- -- -- 12 CREAT -- -- 1.70* -- 1.60* -- -- -- 1.67* GLUC -- -- 197* -- 186* -- -- -- 171* ANION -- -- 16 -- 15 -- -- -- 11 CA -- -- 6.9* -- 6.9* -- -- -- 6.2* MG -- 2.4 -- -- -- -- -- -- 2.3 P -- 3.8 -- -- -- -- -- -- 3.3 ALB 1.7* -- -- -- -- -- -- -- -- AST 65* -- -- -- -- -- -- -- -- ALT 18 -- -- -- -- -- -- -- -- ALKPHOS 124* -- -- -- -- -- -- -- -- TBILI 4.3* -- -- -- -- -- -- -- -- WBC 9.65* -- 8.14 -- -- < > -- < > 8.70 HB 10.1* -- 10.5* -- -- < > -- < > 10.6* HCT 30.7* -- 31.2* -- -- < > -- < > 30.5* PLT 54* -- 43* -- -- < > -- < > 59* PH -- -- -- 7.342* -- -- 7.335* < > 7.352 PCO2 -- -- -- 42.3 -- -- 42.6 < > 42.7 PO2 -- -- -- 98.3* -- -- 85.6 < > 78.8* BE -- -- -- -3.1 -- -- -3.5 < > -2.4 < > = values in this interval not displayed. Exam: GENERAL: comatose NEURO: sluggish pupils, no withdraw LUNGS: Unlabored breathing O2 Therapy: Ventilator CARDIAC: Regular rate and rhythm as above ABDOMEN: Vac intact w SS output EXTREMITIES: MAK, No deformities, No edema SKIN: Skin color, texture, turgor normal, No rashes or lesions ASSESSMENT AND PLAN: Active Hospital Problems Diagnosis Date Noted - Ruptured abdominal aortic aneurysm (AAA) ([facility]) 01/12/2018 - Obesity, Class I, BMI 30-34.9 01/16/2018 - Encephalopathy 01/13/2018 - DIC (disseminated intravascular coagulation) ([facility]) 01/12/2018 - Hemorrhagic shock ([facility]) 01/12/2018 - Acute respiratory failure ([facility]) 01/12/2018 - Cardiac arrest ([facility]) 01/12/2018 - Hypernatremia 01/12/2018 - Hypokalemia 01/12/2018 - Hypomagnesemia 01/12/2018 - Hypophosphatemia 01/12/2018 - Hyperchloremia 01/12/2018 - AAA (abdominal aortic aneurysm, ruptured) ([facility]) 01/12/2018 Overview Note: Added automatically from request for surgery [id number] 77 year old male with Ruptured AAA s/p Emergent Repair, takeback washout, repair of serosal tears x2, on 01/12, hemorrhagic shock, acute resp failure with pulm edema, TERENCE, SVT, s/p Third Look Laparotomy and?washout on 01/14, fourth look, washout, vac change on 01/16 Neuro status unchanged, minimally responsive Pressors down Continued diuresis, pt tolerating well. Plan OR 01-19 for attempted closure Assessment and plan discussed with attending: Myriam SIGNATURE: Mervin Lo MD PATIENT NAME: Naveen Akins DATE: January 18, 2018 TIME: 12:17 PM Pager: [phone] Emergency General Surgery Service Pager: For questions or concerns Tue-Tue 6a-5p please page [phone]. After 5pm and on Weekends and Holidays, please page [phone] if in ICU or [phone] if on RNF. PHERESED PLATELETS Collected: 01/18/2018 Status: F Source: [facility] 11:30 AM HEALTH SYSTEM REPOSITORY TYPE CODE TESTS RESULT OUT OF REFERENCE UNITS RANGE LAB PPHR(LOINC) Pheresed Plts Done unit 1 LAB PPHII(LOINC ) Pheresed Plts Done unit 2 Performed By: #### PPHRS #### [facility] [address] [address] ANTI PLT FACTOR 4 Collected: 01/18/2018 Status: F Source: [facility] AB 11:30 AM HEALTH SYSTEM REPOSITORY TYPE CODE TESTS RESULT OUT OF REFERENCE UNITS RANGE LAB PLF4X(LOINC ) Anti Plt SEE BELOW Factor 4 Ab Result Comment: Plasma+PF4 Complex 0.177 OD < 0.400 is negative Plas+PF4 Hi Dose Hep 0.173 % Inhibition Not calculated Interpretation Negative No anti-platelet factor 4 IgG antibody is detected by BJ assay. Heparin-induced thrombocytopenia (HIT) is unlikely, but should be excluded based on clinical factors. Anti-PF4 Review SEE BELOW Test Not Indicated Performing Laboratory: [facility] [address] [place] [address] Performed By: #### [id number] #### [address] [address] CASE MANAGEM Observed: 01/18/2018 Status: COMPLETED Source: [facility] 10:43 AM CLINIC OTHER CAMPUS REPOSITORY HNO ID: [id number] Author: Krystal (Magaly) MAGALY Jacobson Service: Care Management Author Type: Registered Nurse Type: Care Mgt Progress Note Filed: 01/18/2018 10:46 AM Note Text: CARE MANAGEMENT PROGRESS NOTE SERVICE DATE: 01/18/2018 SERVICE TIME: 10:43 AM LOS: 6 days Notes reviewed. Patient s/p ruptured AAA and s/p emergent repair. Remains on vent. On CVVHD and TPN To OR tomorrow for possible fascial closure. Will continue to follow for transitional needs. SIGNATURE: Krystal Jacobson RN PATIENT NAME: Naveen Akins DATE: January 18, 2018 TIME: 10:43 AM PAGER/CONTACT #: [phone] VENOUS BLOOD GAS Collected: 01/18/2018 Status: F Source: [facility] 10:00 AM HEALTH SYSTEM REPOSITORY TYPE CODE TESTS RESULT OUT OF REFERENCE UNITS RANGE LAB TEMPC(LOIN C) Temperature 37.0 LAB PHV(LOINC) 7.320-7.420 Low pH Venous 7.296 LAB PCO2I(LOIN 38.0-49.0 mm Hg C) PCO2 Venous High 52.2 LAB PO2VI(LOIN 35.0-45.0 mm Hg C) PO2 Venous High 45.7 LAB HCO3C(LOIN 22.0-26.0 mEq/L C) HCO3- 24.9 LAB BASE(LOINC -2.5 to 2.5 mEq/L ) Base Excess -2.0 LAB O2%V(LOINC 70.0-80.0 % ) O2% Sat Venous 78.9 Performed By: #### VBG #### [place] [address] HEMOGRAM Collected: 01/18/2018 Status: F Source: [facility] 10:00 HEALTH SYSTEM REPOSITORY TYPE CODE TESTS RESULT OUT OF REFERENCE UNITS RANGE LAB WBC(LOINC) 4.23-9.07 thou/cmm WBC High 9.65 LAB RBC(LOINC) 4.63-6.08 mil/cmm Low RBC 3.59 LAB HGB(LOINC) 13.7-17.5 g/dL Low Hgb 10.1 LAB HCT(LOINC) 40.1-51.0 % Low Hct 30.7 LAB MCV(LOINC) 83.2-95.6 fl MCV 85.5 LAB MCH(LOINC) 25.7-32.2 pg MCH 28.1 LAB MCHC(LOINC 32.3-36.5 % ) MCHC 32.9 LAB RDW(LOINC) 11.6-14.4 % RDW High 17.5 LAB RDWSD(LOIN 36.1-45.8 fl C) RDW High SD 54.8 LAB PLT(LOINC) 141-365 thou/cmm Low Platelet 54 LAB MPV(LOINC) 8.7-12.0 fl MPV High 12.3 LAB NRBCR(LOIN 0.0-0.2 % C) High Nucleated RBC % 0.3 LAB NRBCA(LOIN 0.00-0.01 thou/cmm C) High Nucleated RBC 0.03 Absolute Performed By: #### CBC1 #### [facility] [address] [address] HEPATIC PANEL Collected: 01/18/2018 Status: F Source: [facility] 10:00 AM HEALTH SYSTEM REPOSITORY TYPE CODE TESTS RESULT OUT OF REFERENCE UNITS RANGE LAB ALB(LOINC) 3.4-5.0 g/dL Low Albumin Blood 1.7 LAB ALT(LOINC) 12-78 U/L ALT-SGPT Blood 18 LAB ALKP(LOINC 46-116 U/L ) Alk High Phosphatase 124 LAB TP(LOINC) 6.4-8.2 g/dL Low Total Protein 4.8 LAB AST(LOINC) 9-37 U/L AST-SGOT High Blood 65 LAB BILIT(LOIN 0.2-1.0 mg/dL C) Total High Bilirubin 4.3 LAB DBIL(LOINC 0.00-0.20 mg/dL ) Direct High Bilirubin 3.27 Performed By: #### HEPAP #### [facility] [address] [address] CHEST 1 VIEW Observed: 01/18/2018 Status: F Source: [facility] 5:37 AM HEALTH SYSTEM REPOSITORY Performed at [facility] APPROVED BY: Justino Rodriguez MD EXAMINATION: CHEST RADIOGRAPH (SINGLE VIEW AP OR PA) Clinical History: Evaluate tube, line or lead position. M: [id number]_[id number] Comparison: AP chest 01/17/2018 05:29. RESULT: Lines, tubes, and devices: Endotracheal tube, orogastric tube, and bilateral IJ central venous catheter appear stable Lungs and pleura: Bilateral pleural effusions at least mild in size. Diffuse infiltrate throughout both lungs. No pneumothorax. Cardiomediastinal silhouette: Stable. Other: IMPRESSION: Able is 4 devices. Stable diffuse opacities may represent pulmonary edema or ARDS. Pneumonia is difficult to exclude. Bilateral pleural effusions. PROGRESS Observed: 01/18/2018 Status: COMPLETED Source: [place] 5:02 AM CLINIC OTHER CAMPUS REPOSITORY HNO ID: [id number] Author: Dionicio (Res) Stevens Service: Vascular Surgery Author Type: Resident Type: Progress Notes Filed: 01/18/2018 9:56 AM Note Text: Attestation signed by Venkat Paniagua at 01/22/2018 6:32 PM I saw and evaluated the patient. Discussed with the resident and agree with resident's findings and plan as documented in the resident's note. I again discussed the case at length with the patient's family and discussed the fact that the emergency surgery service will be taking the patient tomorrow to see if we can get part or all of his abdomen closed. I tell him this may require some fascial release her fascial separation and that this would be performed by the emergency general surgery service. The patient has been discussed with the surface they understand our plan and I will be present at the time of surgery if there are any questions or needs from a vascular standpoint. I discussed all of this with the family I still discuss is very guarded prognosis especially in light of the fact that we have seen only limited neurologic activity. The plan would be that once we get this patient's abdomen closed we will have further formal neurologic assessment performed to determine what potential for neurologic outcome is in this setting. Vascular Surgery Progress Note SERVICE DATE: 01/18/2018 Vascular AND Thoracic Surgery Service Pager: For questions or concerns Mon-Fri 6a-5p please page [phone]. After 5pm and on Weekends and Holidays, please page [phone] if in ICU or [phone] if on RNF. Subjective SUBJECTIVE: NAEON, weaning Levo, gently diuresing Diet: DIET NPO Parenteral Nutrition - Adult Objective OBJECTIVE: Vitals: Temp (24hrs), Av.7 ?C (96.3 ?F), Min:35.1 ?C (95.2 ?F), Max:36.1 ?C (97 ?F) BP 170/61 Pulse 75 Temp (!) 35.9 ?C (96.6 ?F) (Temporal Artery) Resp 24 Ht 172.7 cm (5' 8) Wt 104.2 kg (229 lb 11.5 oz) SpO2 95% BMI 34.93 kg/m? O2 Therapy: Ventilator IANDO: Date 01/17/18699 - 01/18/18 0659 01/18/18 07 - 01/19/18 0659 Shift 8115-0026 6791-6303 7289-3312 24 Hour Total 9456-6673 3267-3491 7095-2170 24 Hour Total I N T A K E IV 184 1545 1729 NS 0.9% 94 1000 1094 Fentanyl Volume 15 15 Amiodarone 16 16 NORepinephrine Volume 40 280 320 Propofol IV 19 65 84 Ampicillin/Sulbactam (Unasyn) IV 200 200 TPN/PPN 100 1200 1300 TPN 100 1200 1300 Shift Total 284 2745 3029 O U T P U T Urine 32 28 60 Tube Output ([REMOVED] Indwelling Urinary Catheter 01/12/18 1108 Assessment Temperature Monitoring 16 Fr 01/17/18 1800) 32 28 60 Tubes 9256 663 4030 Drain/Tube Output (Drain/Tube 01/12/18 0100 Hemovac Midline Anterior Abdomen) 9374 689 7643 Drain/Tube Output (Drain/Tube 01/12/18 Fecal Management System) 0 0 0 Output (GI Feed/Drain 01/12/18 0100) 0 0 0 Dialysis 2138 236 257 2390 Dialysis Output (Ultrafiltration) 2138 166 307 8080 Shift Total 3270 6129 278 5062 Weight (kg) 104.2 104.2 104.2 104.2 104.2 104.2 104.2 104.2 MEDICATIONS Current Facility-Administered Medications: calcium gluconate 4 g in NaCl 0.9% 250 mL 4 g INTRAVENOUS ONCE propofol infusion (DIPRIVAN) 0-15 mcg/kg/min (Adjusted) INTRAVENOUS CONTINUOUS hydrocortisone sodium succinate (PF) 50 mg injection (Solu- CORTEF) 50 mg INTRAVENOUS q 8 H Parenteral Nutrition - Adult INTRAVENOUS ONCE TPN (1800 START) NaCl 0.9% iv infusion 100 mL/hr INTRAVENOUS CONTINUOUS heparin 1,000 unit/mL 4,000 Units injection 4,000 Units INTRAVENOUS 3 Times weekly with dialysis amiodarone 360 mg in D5W 200 mL (NEXTERONE) 0.5-1 mg/min INTRAVENOUS CONTINUOUS heparin 5,000 Units injection 5,000 Units SUBCUTANEOUS q 12 H ampicillin-sulbactam 3 g in NaCl 0.9% 100 mL MB+ (UNASYN) 3 g INTRAVENOUS q 6 H NaCl 0.9% 1,000 mL iv bolus 1,000 mL INTRAVENOUS PRN DIALYSIS prismaSOL BGK 4 K / 2.5 mEq Ca/Liter 5,000 mL 5,000 mL HEMODIALYSIS continuous (no dispense) prismaSOL BGK 4 K / 2.5 mEq Ca/Liter 5,000 mL 5,000 mL HEMODIALYSIS continuous (no dispense) prismaSOL BGK 4 K / 2.5 mEq Ca/Liter 5,000 mL 5,000 mL HEMODIALYSIS continuous (no dispense) dextrose 40 % 15 g 15 g ORAL PRN Or glucagon 1 mg injection (GLUCAGEN) 1 mg INTRAMUSCULAR PRN Or dextrose 50% in water 25 mL syringe 12.5 g INTRAVENOUS PRN magnesium sulfate 1 g in D5W 100 mL 1 g INTRAVENOUS PRN magnesium sulfate in water 2 g in sterile water 50 ml 2 g INTRAVENOUS PRN fentaNYL 20 mcg/mL iv infusion in NaCl 0.9% 100 mL 0-75 mcg/hr INTRAVENOUS CONTINUOUS pantoprazole 40 mg injection (PROTONIX) 40 mg INTRAVENOUS DAILY (6 AM) NORepinephrine 16 mg in D5W 250 mL (LEVOPHED) 0.6-40 mcg/min INTRAVENOUS CONTINUOUS Chlorhexidine Gluconate 0.12 % 15 mL (PERIDEX) 15 mL ORAL q 12 H Labs: Recent Labs 01/18/18 0430 01/17/18 1650 01/17/18 1639 01/17/18 1630 01/17/18 1030 01/17/18 0435 01/16/18 0430 01/15/18 1000 01/15/18 0745 NA -- 138 -- -- -- 137 < > 137 < > 135* -- -- K -- 3.9 -- -- -- 4.0 < > 3.9 < > 4.1 -- -- CHLOR -- 104 -- -- -- 106 < > 105 < > 104 -- -- CO2 -- 23 -- -- -- 24 < > 23 < > 20* -- -- BUN -- 11 -- -- -- 12 < > 11 < > 14 -- -- CREAT -- 1.60* -- -- -- 1.67* < > 1.75* < > 1.93* -- -- GLUC -- 186* -- -- -- 171* < > 88 < > 134* -- -- ANION -- 15 -- -- -- 11 < > 13 < > 15 -- -- CA -- 6.9* -- -- -- 6.2* < > 6.7* < > 6.3* -- -- MG -- -- -- -- -- 2.3 -- 2.2 -- -- -- -- P -- -- -- -- -- 3.3 -- 2.5 -- 3.4 < > -- WBC -- -- 9.56* -- 9.99* 8.70 < > 10.93* < > 11.75* -- -- HB -- -- 11.0* -- 11.2* 10.6* < > 11.2* < > 12.2* -- -- HCT -- -- 32.8* -- 32.7* 30.5* < > 32.2* < > 36.0* -- -- PLT -- -- 54* -- 59* 59* < > 56* < > 55* -- -- LACT -- -- -- -- -- -- -- -- -- 1.5 -- -- INR -- -- -- -- -- -- -- -- -- 1.22 -- 1.18 PH 7.342* -- -- 7.335* 7.286* 7.352 < > 7.397 < > 7.427 -- -- PCO2 42.3 -- -- 42.6 51.0* 42.7 < > 35.2* < > 30.7* -- -- PO2 98.3* -- -- 85.6 91.0 78.8* < > 108.6* < > 78.6* -- -- BE -3.1 -- -- -3.5 -3.2 -2.4 < > -3.0 < > -3.8 -- -- < > = values in this interval not displayed. Exam: GENERAL: No distress NEURO: pupils reactive/sluggish, not following commands, withdrawing and opening eyes to pain HEENT: normocephalic, atraumatic, +scleral icterus LUNGS: Unlabored breathing O2 Therapy: Ventilator CARDIAC: Regular rate and rhythm as above ABDOMEN: Soft, mild D, NT, no PS, Vac intact w SS output EXTREMITIES: MAK, No deformities, +Anasarca, palpable pulses SKIN: Skin color, texture, turgor normal, No rashes or lesions ASSESSMENT AND PLAN: Active Hospital Problems Diagnosis Date Noted - Ruptured abdominal aortic aneurysm (AAA) ([facility]) 01/12/2018 - Obesity, Class I, BMI 30-34.9 01/16/2018 - Encephalopathy 01/13/2018 - DIC (disseminated intravascular coagulation) ([facility]) 01/12/2018 - Hemorrhagic shock ([facility]) 01/12/2018 - Acute respiratory failure ([facility]) 01/12/2018 - Cardiac arrest ([facility]) 01/12/2018 - Hypernatremia 01/12/2018 - Hypokalemia 01/12/2018 - Hypomagnesemia 01/12/2018 - Hypophosphatemia 01/12/2018 - Hyperchloremia 01/12/2018 - AAA (abdominal aortic aneurysm, ruptured) ([facility]) 01/12/2018 Overview Note: Added automatically from request for surgery [id number] 77 year old male with Ruptured AAA s/p Emergent Repair, takeback washout, repair of serosal tears x2, on 01/12, hemorrhagic shock, acute resp failure with pulm edema, TERENCE, SVT, s/p Third Look Laparotomy and?washout on 01/14, fourth look, washout, vac change on 01/16 ? - Vent mgmt per MICU - NPO/TPN - Wean Levo as able - Acute blood loss and dilutional anemia and thrombocytopenia - monitor, transfuse prn - q6 labs - Cont Abthera VAC - TERENCE -->?CVVHD per?Nephro, diurese as tolerates - CXR with bilateral pulm edema/effusions, unchanged - Unasyn empirically per MICU - Hypocalcemia?- replacing - Amio per Cards for SVT - cont scrotal support - check hepatic panel OR tomorrow for possible fascial closure, blood products on hold for OR ?? Assessment and plan discussed with attending: Dr. Paniagua SIGNATURE: Dionicio Stevens MD PATIENT NAME: Naveen Akins DATE: January 18, 2018 TIME: 5:03 AM Vascular AND Thoracic Surgery Service Pager: For questions or concerns Tue-Tue 6a-5p please page [phone]. After 5pm and on Weekends and Holidays, please page [phone] if in ICU or [phone] if on RNF. MAGNESIUM BLOOD Collected: 01/18/2018 Status: F Source: [facility] 5:00 AM HEALTH SYSTEM REPOSITORY TYPE CODE TESTS RESULT OUT OF REFERENCE UNITS RANGE LAB MAG(LOINC) 1.6-2.6 mg/dL Magnesium Blood 2.4 Performed By: #### MAG #### [facility] [address] [address] PHOSPHORUS BLOOD Collected: 01/18/2018 Status: F Source: [facility] 5:00 AM HEALTH SYSTEM REPOSITORY TYPE CODE TESTS RESULT OUT OF REFERENCE UNITS RANGE LAB PHOS(LOINC 2.5-4.9 mg/dL ) Phosphorus Blood 3.8 Performed By: #### PHOS #### [place] [address] HEMOGRAM/DIFF Collected: 01/18/2018 Status: F Source: [facility] 4:35 AM HEALTH SYSTEM REPOSITORY TYPE CODE TESTS RESULT OUT OF REFERENCE UNITS RANGE LAB WBC(LOINC) 4.23-9.07 thou/cmm WBC 8.14 LAB RBC(LOINC) 4.63-6.08 mil/cmm Low RBC 3.68 LAB HGB(LOINC) 13.7-17.5 g/dL Low Hgb 10.5 LAB HCT(LOINC) 40.1-51.0 % Low Hct 31.2 LAB MCV(LOINC) 83.2-95.6 fl MCV 84.8 LAB MCH(LOINC) 25.7-32.2 pg MCH 28.5 LAB MCHC(LOINC 32.3-36.5 % ) MCHC 33.7 LAB RDW(LOINC) 11.6-14.4 % RDW High 17.2 LAB RDWSD(LOIN 36.1-45.8 fl C) RDW SD High 53.3 LAB PLT(LOINC) 141-365 thou/cmm Low Platelet alert 43 LAB NRBCR(LOIN 0.0-0.2 % C) High Nucleated RBC % 0.4 LAB SEG(LOINC) % Seg Neutrophil 80.2 LAB IGRE(LOINC % ) Immature Grans 7.00 LAB LYMPH(LOIN % C) Lymphocyte 6.8 LAB MNO(LOINC) % Monocyte 5.4 LAB EOSIN(LOIN % C) Eosinophil 0.2 LAB BASO(LOINC % ) Basophil 0.4 LAB NRBCA(LOIN 0.00-0.01 thou/cmm C) High Nucleated RBC 0.03 Absolute LAB SEGN(LOINC 1.78-5.38 thou/cmm ) Abs. High Neut (ANC) 6.53 LAB IGAB(LOINC 0.00-0.05 thou/cmm ) Abs High Immature Grans 0.57 LAB LYMN(LOINC 0.84-2.85 thou/cmm ) Low Abs. Lymph 0.55 LAB MONON(LOIN 0.30-0.82 thou/cmm C) Abs. Rincon 0.44 LAB EOSN(LOINC 0.04-0.54 thou/cmm ) Low Abs. Eosin 0.02 LAB BASON(LOIN 0.01-0.08 thou/cmm C) Abs. Baso 0.03 Result Comment: Smear scanned; tech agrees with automated differential Performed By: #### CBCD1 #### [place] [address] BASIC PANEL Collected: 01/18/2018 Status: F Source: [facility] 4:35 AM HEALTH SYSTEM REPOSITORY TYPE CODE TESTS RESULT OUT OF REFERENCE UNITS RANGE LAB NA(LOINC) 136-145 mEq/L Sodium Blood 139 LAB K(LOINC) 3.5-5.1 mEq/L Potassium Blood 4.5 LAB CL(LOINC) 98-107 mEq/L Chloride Blood 105 LAB CO2(LOINC) 21-32 mEq/L CO2 Blood 23 LAB GLU(LOINC) 70-99 mg/dL Glucose High Blood 197 LAB BUN(LOINC) 7-18 mg/dL BUN Blood 14 LAB CREA(LOINC 0.67-1.17 mg/dL ) High Creatinine Blood 1.70 LAB CA(LOINC) 8.5-10.1 mg/dL Low Calcium Blood 6.9 LAB ANGAP(LOIN 8-16 C) Anion Gap 16 Performed By: #### P8 #### [facility] [address] [address] PROGRESS Observed: 01/18/2018 Status: COMPLETED Source: [place] 12:05 AM [facility] REPOSITORY HNO ID: [id number] Author: Joycelyn (Rn) MAGALY Lester Service: Dialysis Author Type: Registered Nurse Type: Progress Notes Filed: 01/18/2018 12:09 AM Note Text: Called in for pressure pod sensors on CRRT. Noticed problem with access pressure pod. Called [facility] clinical support, with their assistance with trouble shooting system, able to clear the alarm. Blood flow rate currently at 120ml/hr d/t access issues. Also, lines reversed on dialysis catheter for better BFR. [employer] assistance suggested slowly turning up BFR to keep access pressure less than -200. CVICU nurse aware and stated an understanding. ALLIED HEALTH Observed: 01/17/2018 Status: COMPLETED Source: [place] 9:30 PM [facility] REPOSITORY HNO ID: [id number] Author: Chaplain Robbins (Chaplain) Service: Spiritual Care Author Type: Envelope Stamping Machine Operator Type: Allied Health Filed: 01/18/2018 4:34 AM Note Text: SPIRITUALCARE Spiritual Care Visit- Brief Note Name: Naveen Akins Date: January 18, 2018 Notes: Visit with family in waiting room.Great support for patient. No coffee available to family. Machine on 4th floor has been broken for days. Notified nurse on 4800. Family thankful for continued visits and prayer. Envelope Stamping Machine Operator Signature: Chaplain Rosendo To contact the Spiritual Care Department: Please call [phone] or Page the On-Call Envelope Stamping Machine Operator at pager [phone] Thank you for the opportunity to be of service. This is an electronically created document. IF PRINTED, PLEASE DO NOT REMOVE FROM THE CHART OR MODIFY PRINTED COPY. PROGRESS Observed: 01/17/2018 Status: COMPLETED Source: [place] 8:59 PM [facility]INIC OTHER CAMPUS REPOSITORY HNO ID: [id number] Author: Ariadna (Rn) MAGALY Stewart Service: Abstract Author Type: Registered Nurse Type: Progress Notes Filed: 01/17/2018 9:01 PM Note Text: 2030 crrt clotted supervisor agricultural education able to return blood/new set up/ arterial and venous line both sluggish but running ART TO ART and trevor to trevor/ flows remain the same/ hemosafe device x2 report to supervisor agricultural education -- ariadna stewart rn BASIC PANEL Collected: 01/17/2018 Status: F Source: [facility] 4:50 PM HEALTH SYSTEM REPOSITORY TYPE CODE TESTS RESULT OUT OF REFERENCE UNITS RANGE LAB NA(LOINC) 136-145 mEq/L Sodium Blood 138 LAB K(LOINC) 3.5-5.1 mEq/L Potassium Blood 3.9 LAB CL(LOINC) 98-107 mEq/L Chloride Blood 104 LAB CO2(LOINC) 21-32 mEq/L CO2 Blood 23 LAB GLU(LOINC) 70-99 mg/dL Glucose High Blood 186 LAB BUN(LOINC) 7-18 mg/dL BUN Blood 11 LAB CREA(LOINC 0.67-1.17 mg/dL ) High Creatinine Blood 1.60 LAB CA(LOINC) 8.5-10.1 mg/dL Low Calcium Blood 6.9 LAB ANGAP(LOIN 8-16 C) Anion Gap 15 Performed By: #### P8 #### [facility] [address] [address] PHERESED PLATELETS Collected: 01/17/2018 Status: F Source: [facility] 4:48 PM HEALTH SYSTEM REPOSITORY TYPE CODE TESTS RESULT OUT OF REFERENCE UNITS RANGE LAB PPHR(LOINC) Pheresed Plts Done unit 1 Performed By: #### PPHRS #### [facility] [address] [address] HEMOGRAM Collected: 01/17/2018 Status: F Source: [facility] 4:39 PM [facility] REPOSITORY TYPE CODE TESTS RESULT OUT OF REFERENCE UNITS RANGE LAB WBC(LOINC) 4.23-9.07 thou/cmm High WBC 9.56 LAB RBC(LOINC) 4.63-6.08 mil/cmm Low RBC 3.85 LAB HGB(LOINC) 13.7-17.5 g/dL Low Hgb 11.0 LAB HCT(LOINC) 40.1-51.0 % Low Hct 32.8 LAB MCV(LOINC) 83.2-95.6 fl MCV 85.2 LAB MCH(LOINC) 25.7-32.2 pg MCH 28.6 LAB MCHC(LOINC) 32.3-36.5 % MCHC 33.5 LAB RDW(LOINC) 11.6-14.4 % High RDW 17.3 LAB RDWSD(LOINC 36.1-45.8 fl ) High RDW SD 54.2 LAB PLT(LOINC) 141-365 thou/cmm Low Platelet 54 Result Comment: Smear scanned tech agrees with platelet count LAB MPV(LOINC) 8.7-12.0 fl MPV 10.4 LAB NRBCR(LOINC) 0.0-0.2 % High Nucleated RBC % 0.3 LAB NRBCA(LOINC) 0.00-0.01 thou/cmm High Nucleated RBC Absolute 0.03 Performed By: #### CBC1 #### [place] [address] BLOOD GAS ARTERIAL Collected: 01/17/2018 Status: F Source: [facility] 4:30 PM HEALTH SYSTEM REPOSITORY TYPE CODE TESTS RESULT OUT OF REFERENCE UNITS RANGE LAB FIO2(LOINC % ) FIO2 75 LAB TEMPA(LOIN C) Temperature 37.0 LAB PH(LOINC) 7.350-7.450 Low pH Arterial 7.335 LAB PCO2(LOINC 36.0-46.0 mm Hg ) PCO2 Arterial 42.6 LAB PO2(LOINC) 85.0-96.0 mm Hg PO2 Arterial 85.6 LAB HCO3A(LOIN 22.0-26.0 mEq/L C) HCO3- 22.2 LAB O2%A(LOINC 95.0-98.0 % ) O2% Sat Arterial 96.8 LAB BASEX(LOIN -2.5 to 2.5 mEq/L C) Base Excess -3.5 Performed By: #### ABG #### [place] [address] NUTRITION Observed: 01/17/2018 Status: COMPLETED Source: [place] 3:17 PM CLINIC OTHER CAMPUS REPOSITORY HNO ID: [id number] Author: Jaimie Perez RD Service: Nutrition Therapy Author Type: Registered Dietitian Type: Nutrition Filed: 01/17/2018 3:23 PM Note Text: NUTRITION SUPPORT TEAM TOPIC: NUTRITION SUPPORT TEAM PROGRESS NOTE PATIENT NAME: Naveen Akins DATE OF : 1940 DATE: 01/17/2018 Nutritional Status: NO MALNUTRITION IDENTIFIED New HPN Patient? No Interval History: TPN renewed. Weaning pressors. Remains on CVVHD, but sensitive to fluid removal. 01/16 s/p exp lap, wound vac change and washout. Planning to attempt closure this week. Cultures negative. No BM documented. Assessment: Per HPI: This is a 77 year old male transferred in critical condition from [facility] with diagnosed ruptured AAA. Patient was life-flighted to [facility]. Intubated at outside facility. Per EMS, patient went into cardiac arrest immediately prior to arrival and CPR was initiated. 4 U prbc given prior to arrival. Patient was taken emergently to OR on arrival. CPR was continued en route. ? ACTIVE PROBLEM LIST Gallstone Pancreatitis Ruptured Abdominal Aortic Aneurysm (Aaa) (Hcc) Dic (Disseminated Intravascular Coagulation) (Hcc) Hemorrhagic Shock (Hcc) Acute Respiratory Failure (Hcc) Cardiac Arrest (Hcc) Hypernatremia Hypokalemia Hypomagnesemia Hypophosphatemia Hyperchloremia Encephalopathy Aaa (Abdominal Aortic Aneurysm, Ruptured) (Hcc) Obesity, Class I, Bmi 30-34.9 Recommendations: Daily tpn renewal until bowel fxn adequate Adjust volume as needed for renal plans(currently at 2.4 L) Phos replacement for cvvhd Collaborated with Dr. Dudley Vitals: Temperature Max in 24 hours: Temp (24hrs), Av.9 ?C (96.7 ?F), Min:35.1 ?C (95.2 ?F), Max:36.8 ?C (98.2 ?F) Current Vital Signs: BP 123/51 Pulse 85 Temp 36.1 ?C (97 ?F) (Axillary) Resp 17 Ht 172.7 cm (5' 8) Wt 104.2 kg (229 lb 11.5 oz) SpO2 94% BMI 34.93 kg/m? Current Weight: Weight: 104.2 kg (229 lb 11.5 oz) Intake AND Output: Intake/Output Summary (Last 24 hours) at 01/17/18 1517 Last data filed at 01/17/18 1400 Gross per 24 hour Intake 3824.3 ml Output 8067 ml Net -4242.7 ml Laboratory Data: Recent Labs 01/17/18 0435 01/16/18 1955 01/16/18 0430 01/15/18 1000 01/15/18 0400 01/14/18 1555 NA 137 137 137 < > 135* 137 < > 142 K 4.0 3.9 3.9 < > 4.1 4.3 < > 4.5 CHLOR 106 105 105 < > 104 105 < > 111* CO2 24 24 23 < > 20* 21 < > 22 CREAT 1.67* 1.83* 1.75* < > 1.93* 2.10* < > 2.10* BUN 12 11 11 < > 14 16 < > 17 GLUC 171* 106* 88 < > 134* 112* < > 78 P 3.3 -- 2.5 -- 3.4 1.9* < > -- TPROT -- -- -- -- -- -- -- 3.7* ALB -- -- -- -- -- -- -- 1.7* MG 2.3 -- 2.2 -- -- 2.3 -- -- CA 6.2* 6.9* 6.7* < > 6.3* 6.4* < > 6.4* < > = values in this interval not displayed. Accuchecks: No results found for: PCGLUCOSE Jaimie Perez RD Pager: [phone] Increments: 3 PROGRESS Observed: 01/17/2018 Status: COMPLETED Source: [place] 2:34 PM CLINIC OTHER [place] REPOSITORY HNO ID: [id number] Author: Wai Barcenas Service: Cardiovascular Medicine Author Type: Nurse Practitioner Type: Progress Notes Filed: 01/17/2018 2:39 PM Note Text: CARDIOVASCULARSURGERY PROGRESS NOTE SERVICE DATE: 01/17/2018 SERVICE TIME: 2:35 PM Discussed patient with Dr. Sutton, Dr. De La Cruz, and Jose GARDNER. Ok to dc continuous EEG at this time. No seizures noted, but did show severe diffuse encephalopathy. Will attempt to wean Propofol down/off to further assess mental status. Will keep sanchez at this time to closely monitor how much UOP and for concern of penile AND scrotal edema. Plan for surgery on noted. 10 min spent coordinating care. SIGNATURE: Wai Barcenas APRN.CNP PATIENT NAME: Naveen Akins DATE: January 17, 2018 TIME: 2:35 PM PAGER/CONTACT #: [phone] ETX#[id number] PROGRESS Observed: 01/17/2018 Status: COMPLETED Source: [place] 1:[address] [facility] REPOSITORY HNO ID: [id number] Author: Costa Miguel Service: Gastroenterology Surgery Author Type: Physician Type: Progress Notes Filed: 01/17/2018 1:50 PM Note Text: Discussed patient with Dr. Paniagua. Tentative plan is takeback to OR zm 01/19 to begin closure attempt and vac change. Costa Miguel MD, FACS, FASS TYPE AND SCREEN Collected: 01/17/2018 Status: F Source: [facility] 11:30 AM HEALTH SYSTEM REPOSITORY TYPE CODE TESTS RESULT OUT OF REFERENCE UNITS RANGE LAB ABO(LOINC) O ABO Group LAB CREATIVE DEVELOPER(LOINC ) RH Type Positive LAB ABSCR(LOIN C) Antibody NEGATIVE Screen LAB BBCMT(LOIN C) Comment See Below Result Comment: Screen &/or Xmatch expires in 3 days at 12 midnight. Redraw patient at that time. Performed By: #### T&S #### [place] [address] RBC PRODUCTS Collected: 01/17/2018 Status: F Source: [facility] 11:30 AM HEALTH SYSTEM REPOSITORY TYPE CODE TESTS RESULT OUT OF REFERENCE UNITS RANGE LAB UNIT1(LOINC ) Xmatch Unit 1 see below Result Comment: Compatible LAB UNIT2(LOINC) Xmatch Unit 2 see below Result Comment: Compatible Performed By: #### RBCPS #### [place] [address] CASE MANAGEM Observed: 01/17/2018 Status: COMPLETED Source: [place] 11:20 AM [facility] REPOSITORY HNO ID: [id number] Author: Steve (Rn) MAGALY Rivera Service: Care Management Author Type: Registered Nurse Type: Care Mgt Progress Note Filed: 01/17/2018 11:21 AM Note Text: Epic reviewed, pt went to OR yesterday for ex-lap, abdominal washout and wound vac change, plan is to go back to OR today. Remains on ventilator. ALLIED HEALTH Observed: 01/17/2018 Status: COMPLETED Source: [place] 11:08 AM [facility] REPOSITORY HNO ID: [id number] Author: Chaplain Serna (Chaplain) Service: Spiritual Care Author Type: Envelope Stamping Machine Operator Type: Allied Health Filed: 01/17/2018 11:10 AM Note Text: SPIRITUALCARE Spiritual Care Visit- Brief Note Name: Naveen Akins Date: January 17, 2018 Notes: Checked in w/pt's family in 3d floor WR--will continue to follow as appropriate. Envelope Stamping Machine Operator Signature: Chaplain Daphne To contact the Spiritual Care Department: Please call [phone] or Page the On-Call Envelope Stamping Machine Operator at pager [phone] Thank you for the opportunity to be of service. This is an electronically created document. IF PRINTED, PLEASE DO NOT REMOVE FROM THE CHART OR MODIFY PRINTED COPY. PROGRESS Observed: 01/17/2018 Status: COMPLETED Source: [place] 11:03 AM [facility] REPOSITORY HNO ID: [id number] Author: Shen Lorenzo Service: Nephrology Author Type: Physician Type: Progress Notes Filed: 01/17/2018 11:20 AM Note Text: Nephrology Progress Note Following for TERENCE. Pt is sedated and is on ventilator. Cannot obtain ROS. Current Inpatient Medications: Current Facility-Administered Medications Ordered in Epic: calcium gluconate 4 g in NaCl 0.9% 250 mL 4 g INTRAVENOUS ONCE Dionicio (Res) Stevens Last Rate: 62.5 mL/hr at 01/17/18 0906 4 g at 01/17/18 0906 sodium phosphate 45 mmol in D5W 250 mL 45 mmol INTRAVENOUS ONCE Dionicio (Res) Stevens Last Rate: 42 mL/hr at 01/17/18 0906 45 mmol at 01/17/18 0906 propofol infusion (DIPRIVAN) 0-15 mcg/kg/min (Adjusted) INTRAVENOUS CONTINUOUS Dionicio (Res) Stevens Parenteral Nutrition - Adult INTRAVENOUS ONCE TPN (1800 START) Perla Dudley Last Rate: 100 mL/hr at 01/17/18 0730 heparin 1,000 unit/mL 4,000 Units injection 4,000 Units INTRAVENOUS 3 Times weekly with dialysis Troy Godoy 1.4 mL at 01/16/18 1739 amiodarone 360 mg in D5W 200 mL (NEXTERONE) 0.5-1 mg/min INTRAVENOUS CONTINUOUS Paulo (Meter Repair Shop Supervisor) Radu Last Rate: 16.67 mL/hr at 01/17/18 0730 0.5 mg/min at 01/17/18 0730 heparin 5,000 Units injection 5,000 Units SUBCUTANEOUS q 12 H Mervin (Res) Wally 5,000 Units at 01/17/18 1017 ampicillin-sulbactam 3 g in NaCl 0.9% 100 mL MB+ (UNASYN) 3 g INTRAVENOUS q 6 H Chente Whittaker Last Rate: 200 mL/hr at 01/17/18 0457 3 g at 01/17/18 0457 NaCl 0.9% 1,000 mL iv bolus 1,000 mL INTRAVENOUS PRN DIALYSIS Shen Lorenzo prismaSOL BGK 4 K / 2.5 mEq Ca/Liter 5,000 mL 5,000 mL HEMODIALYSIS continuous (no dispense) Sehn Lorenzo Last Rate: 700 mL/hr at 01/16/18 1300 5,000 mL at 01/17/18 1019 prismaSOL BGK 4 K / 2.5 mEq Ca/Liter 5,000 mL 5,000 mL HEMODIALYSIS continuous (no dispense) Shen Lorenzo Last Rate: 700 mL/hr at 01/16/18 1300 5,000 mL at 01/17/18 1018 prismaSOL BGK 4 K / 2.5 mEq Ca/Liter 5,000 mL 5,000 mL HEMODIALYSIS continuous (no dispense) Shen Lorenzo Last Rate: 700 mL/hr at 01/16/18 1300 5,000 mL at 01/17/18 1019 dextrose 40 % 15 g 15 g ORAL PRN Jack Regula Or glucagon 1 mg injection (GLUCAGEN) 1 mg INTRAMUSCULAR PRN Jack Regula Or dextrose 50% in water 25 mL syringe 12.5 g INTRAVENOUS PRN Jack Regula magnesium sulfate 1 g in D5W 100 mL 1 g INTRAVENOUS PRN Emilie (Res) Cardella Last Rate: 100 mL/hr at 01/15/18 0016 1 g at 01/15/18 0016 magnesium sulfate in water 2 g in sterile water 50 ml 2 g INTRAVENOUS PRN Emilie (Res) Cardella Last Rate: 25 mL/hr at 01/13/18 1004 2 g at 01/13/18 1004 fentaNYL 20 mcg/mL iv infusion in NaCl 0.9% 100 mL 0-75 mcg/hr INTRAVENOUS CONTINUOUS Dionicio (Res) Stevens Last Rate: 7.5 mL/hr at 01/17/18 0900 150 mcg/hr at 01/17/18 0900 pantoprazole 40 mg injection (PROTONIX) 40 mg INTRAVENOUS DAILY (6 AM) Emilie (Res) Cardella 40 mg at 01/17/18 0457 NORepinephrine 16 mg in D5W 250 mL (LEVOPHED) 0.6-40 mcg/min INTRAVENOUS CONTINUOUS Chente R Cucci Last Rate: 56.25 mL/hr at 01/17/18 1018 60 mcg/min at 01/17/18 1018 Chlorhexidine Gluconate 0.12 % 15 mL (PERIDEX) 15 mL ORAL q 12 H Elder Yu) Kalee 15 mL at 01/17/18 1015 No current [facility]-ordered outpatient prescriptions on file. Vitals: BP (!) 106/47 Pulse 78 Temp (!) 35.1 ?C (95.2 ?F) (Axillary) Resp 18 Ht 172.7 cm (5' 8) Wt 104.2 kg (229 lb 11.5 oz) SpO2 98% BMI 34.93 kg/m? BLOOD PRESSURE RANGE: Systolic (24hrs), Av , Min:93 , Max:195 ; Diastolic (24hrs), Av, Min:44, Max:110 24HR INTAKE/OUTPUT: Intake/Output Summary (Last 24 hours) at 01/17/18 1103 Last data filed at 01/17/18 1000 Gross per 24 hour Intake 4825 ml Output 7289 ml Net -2464 ml Physical exam: Constitutional: Ill appearing. Heent: intubated Cardiovascular: S1, S2 normal Respiratory: Coarse BS bilaterally Abdomen: +bs, soft, nt, nd Ext: 2+ lower extremity edema/anasarca Data: Labs: Recent Labs 01/17/1843401/16/18195401/16/18 1145 WBC 8.70 11.42* 8.26 HB 10.6* 10.3* 10.4* HCT 30.5* 30.1* 29.6* MCV 85.2 84.8 84.1 PLT 59* 65* 46* Recent Labs 01/17/1843401/16/18195401/16/18 04301/15/18 0400 NA 137 137 137 < > 137 K 4.0 3.9 3.9 < > 4.3 CO2 24 24 23 < > 21 MG 2.3 -- 2.2 -- 2.3 BUN 12 11 11 < > 16 CREAT 1.67* 1.83* 1.75* < > 2.10* CA 6.2* 6.9* 6.7* < > 6.4* < > = values in this interval not displayed. Assessment and Plan 1. Acute kidney injury on chronic kidney disease stage 3. Baseline SCr is 1.36 mg/dL on 11/14/17. CKD is likely due to nephrosclerosis related to PAD. TERENCE is 2/2 ischemic ATN from shock. Pt remains anuric. Continue to require pressor support. Effluent dose is adeqaute at 30 ml/kg/min. Unfortunately, his BP dropped today after stopping IVF. UF rate is cut back to keep even. I will discuss fluid management with resident advisor. ? 2. Shock. Likely hemorrhagic shock-massive blood loss from ruptured AAA. Persistent hypotension despite blood product and fluid resuscitation. Unable to remove excess fluid. Pt still has poor oncotic pressure (serum albumin <2.0). Consider checking adrenal function or empiric use of corticosteriod. Will discuss with Dr. Sutton. ? 5. Ruptured AAA. s/p repair 01/12/18. Management as per vascular surgery. ? 6. Acute hypoxic respiratory failure. Ventilator dependent. Vent management as per ICU. O2 requirements are ok although we are having problem removing fluid because of hypotension. See above. Please do not hesitate to contact me at [phone] if there is any question or concern. Rosanna Talbert MD (Shen Lorenzo) BLOOD GAS ARTERIAL Collected: 01/17/2018 Status: F Source: [facility] 10:30 AM HEALTH SYSTEM REPOSITORY TYPE CODE TESTS RESULT OUT OF REFERENCE UNITS RANGE LAB TEMPA(LOIN C) Temperature 37.0 LAB PH(LOINC) 7.350-7.450 Low pH Arterial 7.286 LAB PCO2(LOINC 36.0-46.0 mm Hg ) PCO2 High Arterial 51.0 LAB PO2(LOINC) 85.0-96.0 mm Hg PO2 Arterial 91.0 LAB HCO3A(LOIN 22.0-26.0 mEq/L C) HCO3- 23.7 LAB O2%A(LOINC 95.0-98.0 % ) O2% Sat Arterial 96.4 LAB BASEX(LOIN -2.5 to 2.5 mEq/L C) Base Excess -3.2 LAB FIO2(LOINC % ) FIO2 Value Not Given Performed By: #### ABG #### [place] [address] HEMOGRAM Collected: 01/17/2018 Status: F Source: [facility] 10:30 AM HEALTH SYSTEM REPOSITORY TYPE CODE TESTS RESULT OUT OF REFERENCE UNITS RANGE LAB WBC(LOINC) 4.23-9.07 thou/cmm High WBC 9.99 LAB RBC(LOINC) 4.63-6.08 mil/cmm Low RBC 3.83 LAB HGB(LOINC) 13.7-17.5 g/dL Low Hgb 11.2 LAB HCT(LOINC) 40.1-51.0 % Low Hct 32.7 LAB MCV(LOINC) 83.2-95.6 fl MCV 85.4 LAB MCH(LOINC) 25.7-32.2 pg MCH 29.2 LAB MCHC(LOINC) 32.3-36.5 % MCHC 34.3 LAB RDW(LOINC) 11.6-14.4 % High RDW 17.2 LAB RDWSD(LOINC 36.1-45.8 fl ) High RDW SD 54.4 LAB PLT(LOINC) 141-365 thou/cmm Low Platelet 59 Result Comment: Smear scanned tech agrees with platelet count LAB MPV(LOINC) 8.7-12.0 fl MPV 11.9 LAB NRBCR(LOINC) 0.0-0.2 % Nucleated RBC % 0.2 LAB NRBCA(LOINC) 0.00-0.01 thou/cmm High Nucleated RBC Absolute 0.02 Performed By: #### CBC1 #### [place] [address] PROGRESS Observed: 01/17/2018 Status: COMPLETED Source: [place] 9:52 AM CLINIC OTHER CAMPUS REPOSITORY O ID: [id number] Author: Herman Sutton Service: Critical Care Author Type: Physician Type: Progress Notes Filed: 01/17/2018 10:01 AM Note Text: MICU - PROGRESS NOTE SERVICE DATE: 01/17/2018 SERVICE TIME: 9:52 AM Admission Date: 01/12/2018 AGE: [age] year old LOS: 5 days Subjective REASON FOR ICU ADMISSION: Patient remains critically ill, intubated on mechanical ventilation. ? S/p laparotomy yesterday Remains in circulatory shock on pressors CRRT running, very sensitive to fluids removal cEEG monitoring SAT tried this am an d patient started to wake up Objective PROBLEMS: ACTIVE PROBLEM LIST Gallstone Pancreatitis Ruptured Abdominal Aortic Aneurysm (Aaa) (Hcc) Dic (Disseminated Intravascular Coagulation) (Hcc) Hemorrhagic Shock (Hcc) Acute Respiratory Failure (Hcc) Cardiac Arrest (Hcc) Hypernatremia Hypokalemia Hypomagnesemia Hypophosphatemia Hyperchloremia Encephalopathy Aaa (Abdominal Aortic Aneurysm, Ruptured) (Hcc) Obesity, Class I, Bmi 30-34.9 PAST MEDICAL HISTORY Diagnosis Date - DIC (disseminated intravascular coagulation) (HCC) 01/12/2018 PAST SURGICAL HISTORY Procedure Laterality Date - LAP CHOLECYSTECT/CHOLANGIOGRAPHY 05-28-09 - REPAIR UMBILICAL NATAN,5+Y/O,REDUC 05-28-09 Social History Marital status: Spouse name: Shelly Years of education: 11 Number of children: 4 Occupational History 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 BP 106/56 Pulse 79 Temp (Src) 96.4 (Axillary) Resp 18 Ht 5' 8 (1.73m) Wt 229 lb 11.5 oz (104.2kg) SpO2 95% BMI 34.94 kg/(m2). Temp (24hrs), Av.3 ?C (97.3 ?F), Min:35.8 ?C (96.4 ?F), Max:36.8 ?C (98.2 ?F) NET FLUID BALANCE Intake/Output Summary (Last 24 hours) at 01/17/18 0952 Last data filed at 01/17/18 0800 Gross per 24 hour Intake 5442.9 ml Output 7007 ml Net -1564.1 ml MEDICATIONS Current Facility-Administered Medications: calcium gluconate 4 g in NaCl 0.9% 250 mL 4 g INTRAVENOUS ONCE sodium phosphate 45 mmol in D5W 250 mL 45 mmol INTRAVENOUS ONCE Parenteral Nutrition - Adult INTRAVENOUS ONCE TPN (1800 START) heparin 1,000 unit/mL 4,000 Units injection 4,000 Units INTRAVENOUS 3 Times weekly with dialysis NaCl 0.9% iv infusion 100 mL/hr INTRAVENOUS CONTINUOUS amiodarone 360 mg in D5W 200 mL (NEXTERONE) 0.5-1 mg/min INTRAVENOUS CONTINUOUS heparin 5,000 Units injection 5,000 Units SUBCUTANEOUS q 12 H propofol infusion (DIPRIVAN) 5-60 mcg/kg/min INTRAVENOUS CONTINUOUS ampicillin-sulbactam 3 g in NaCl 0.9% 100 mL MB+ (UNASYN) 3 g INTRAVENOUS q 6 H NaCl 0.9% 1,000 mL iv bolus 1,000 mL INTRAVENOUS PRN DIALYSIS prismaSOL BGK 4 K / 2.5 mEq Ca/Liter 5,000 mL 5,000 mL HEMODIALYSIS continuous (no dispense) prismaSOL BGK 4 K / 2.5 mEq Ca/Liter 5,000 mL 5,000 mL HEMODIALYSIS continuous (no dispense) prismaSOL BGK 4 K / 2.5 mEq Ca/Liter 5,000 mL 5,000 mL HEMODIALYSIS continuous (no dispense) dextrose 40 % 15 g 15 g ORAL PRN Or glucagon 1 mg injection (GLUCAGEN) 1 mg INTRAMUSCULAR PRN Or dextrose 50% in water 25 mL syringe 12.5 g INTRAVENOUS PRN magnesium sulfate 1 g in D5W 100 mL 1 g INTRAVENOUS PRN magnesium sulfate in water 2 g in sterile water 50 ml 2 g INTRAVENOUS PRN fentaNYL 20 mcg/mL iv infusion in NaCl 0.9% 100 mL 25-150 mcg/hr INTRAVENOUS CONTINUOUS pantoprazole 40 mg injection (PROTONIX) 40 mg INTRAVENOUS DAILY (6 AM) NORepinephrine 16 mg in D5W 250 mL (LEVOPHED) 0.6-40 mcg/min INTRAVENOUS CONTINUOUS Chlorhexidine Gluconate 0.12 % 15 mL (PERIDEX) 15 mL ORAL q 12 H Lines, Drains, and Airways Line Arterial Line 01/12/18 0238 Arterial Line Left Brachial 5 days Central Line Double Lumen 01/12/18 0239 Right Neck 5 days Dialysis / Apheresis Double Lumen 01/13/18 1136 Left Neck 3 days Drain Drain/Tube 01/12/18 0100 Hemovac Midline Anterior Abdomen 5 days Drain/Tube 01/12/18 Fecal Management System 5 days GI Feed/Drain 01/12/18 0100 5 days Indwelling Urinary Catheter 01/12/18 1108 Assessment Temperature Monitoring 16 Fr 4 days Airway Airway Endotracheal Tube 01/12/18 1138 4 days PHYSICAL EXAM PERFORMED: General: sedated intubated Cardiovascular: Regular rhythm Respiratory: Rhonchi bilaterally Abdomen: Soft and Nontender Extremities: Edema- No Neurologic: Sedated Respiratory/Nursing Documentation: O2 Therapy: Ventilator (01/17/18919) Invasive Ventilator Mode: Pressure Regulated Volume Control (01/17/18919) Set Ventilator Respiratory Rate (BPM): 18 (01/17/18919) Total Respiratory Rate (BPM): 18 (01/17/18919) Tidal Volume Set (mL): 500 (01/17/18919) Exhaled Tidal Volume (mL): 508 (01/17/18 0348) Minute Volume (L): 8.9 (01/17/18919) Peak Inspiratory Pressure (cm H2O): 21 (01/17/18919) PEEP/CPAP (cm H2O): 5 (01/17/18919) HEMODYNAMIC DATA: Reviewed NUTRITION: TPN DATA: Diagnostic tests reviewed for today's visit, films/specimens were personally reviewed by me: Most recent labs and imaging results. LABS: Recent Labs 01/17/1843401/15/18 1000 01/14/18 1555 TROPI -- -- -- -- 0.228* WBC 8.70 < > 11.75* < > -- RBC 3.58* < > 4.28* < > -- HB 10.6* < > 12.2* < > -- HCT 30.5* < > 36.0* < > -- MCV 85.2 < > 84.1 < > -- PLT 59* < > 55* < > -- GLUC 171* < > 134* < > 78 BUN 12 < > 14 < > 17 CREAT 1.67* < > 1.93* < > 2.10* NA 137 < > 135* < > 142 K 4.0 < > 4.1 < > 4.5 CHLOR 106 < > 104 < > 111* CO2 24 < > 20* < > 22 TPROT -- -- -- -- 3.7* ALB -- -- -- -- 1.7* CA 6.2* < > 6.3* < > 6.4* ALKPHOS -- -- -- -- 67 TBILI -- -- -- -- 2.9* AST -- -- -- -- 69* ALT -- -- -- -- 13 PTSEC -- -- 12.7* < > 13.4* APTT -- -- 36.0* < > 38.6* INR -- -- 1.22 < > 1.31 MG 2.3 < > -- < > -- < > = values in this interval not displayed. ABG: Recent Labs 01/17/1843401/16/18 1955 01/16/18 1145 PH 7.352 7.315* 7.363 PO2 78.8* 72.9* 71.6* PCO2 42.7 45.4 40.5 Assessment/Plan IMPRESSION: ? PROBLEMS: Ruptured AAA s/p surgical repair s/p Cardiac Arrest Persistent Circulatory Shock Acute Hypoxic Respiratory Failure on mechanical ventilation Encephalopathy - Multifactorial ?on continuous EEG? TERENCE on CKD?- Suspected ATN - On CRRT Lactic Acidosis - Resolved Sinus Tachycardia Thrombocytopenia SVT - Resolved MMP ? PLANS FOR TODAY: Continue?mechanical ventilation, adjust as needed, currently on 50% FIo2, no dysynchrony Wean pressors as tolerated, goal MAP > 65mmHg Cultures negative, remains on unasyn empirically. Hold on removing fluids giving his HD fluctuation EEG impressive for severe encephalopathy, no evidence of epileptiform activity/seizures SAT daily AAA management/post-operative care per vascular surgery, going to OR again at 5pm today Continue w/ amiodarone gtt, monitor rhythm. ?No further runs of SVT Cardiology consulted, appreciate recs Continue TPN SCDs/PPI/ Heparin SQ per primary team Guarded prgnosis ? Critical Care Documentation:?The patient has the following organ/system impairment(s): ?Circulatory shock, Complex life-threatening ?medical problem(s) and Respiratory failure (Acute, with Hypoxemia) ? ? This patient has a high probability of sudden, clinically significant deterioration, which requires the highest level of physician preparedness to intervene urgently. ?I managed/supervised life or organ supporting interventions that required frequent physician assessment. ?I devoted my full attention to the direct care of this patient for the amount of time indicated below. ?Time I spent with family or surrogate(s) is included only if the patient was incapable of providing the necessary information or participating in medical decision making. ?Time devoted to teaching is not included. ? Critical Care Time devoted to this patient is ?35 minutes SIGNATURE: Herman Sutton MD PATIENT NAME: Naveen Akins DATE: January 17, 2018 TIME: 9:53 AM PROGRESS Observed: 01/17/2018 Status: COMPLETED Source: [place] 6:31 AM CLINIC OTHER CAMPUS REPOSITORY O ID: [id number] Author: Dionicio Stevens Service: Vascular Surgery Author Type: Resident Type: Progress Notes Filed: 01/17/2018 10:27 AM Note Text: Vascular Surgery Progress Note SERVICE DATE: 01/17/2018 Vascular AND Thoracic Surgery Service Pager: For questions or concerns Mon-Fri 6a-5p please page [phone]. After 5pm and on Weekends and Holidays, please page [phone] if in ICU or [phone] if on RNF. Subjective SUBJECTIVE: NAEON per nurseAUBREE on Sedation holiday, not following commands Diet: DIET NPO Parenteral Nutrition - Adult Objective OBJECTIVE: Vitals: Temp (24hrs), Av.3 ?C (97.4 ?F), Min:35.9 ?C (96.7 ?F), Max:36.8 ?C (98.2 ?F) BP 102/50 Pulse 76 Temp 36.5 ?C (97.7 ?F) (Temporal Artery) Resp 18 Ht 172.7 cm (5' 8) Wt 104.2 kg (229 lb 11.5 oz) SpO2 97% BMI 34.93 kg/m? O2 Therapy: Ventilator IANDO: Date 01/16/18 07 - 01/17/18 0659 01/17/18 07 - 01/18/18 0659 Shift 5327-3377 2902-2738 4963-1435 24 Hour Total 3447-7935 1536-8371 2201-1282 24 Hour Total I N T A K E IV 2251.1 1710.7 1240 5201.8 IVPB 604 604 NS 0.9% 1086.9 637.8 618 2342.7 Calcium IVPB 299.9 299.9 Fentanyl Volume 57.3 39.8 53 150.1 Amiodarone 148.8 115.9 119 383.7 NORepinephrine Volume 165.8 141.7 175 482.5 Potassium Phosphate 281.1 281.1 Propofol IV 111.3 71.5 75 257.8 Ampicillin/Sulbactam (Unasyn) IV 100 100 200 400 TPN/PPN 319 297 616 TPN 319 297 616 Other 152 152 OR 152 152 Shift Total 2251.1 2181.7 1537 5969.8 O U T P U T Urine 116 5 34 155 Tube Output ( Indwelling Urinary Catheter 01/12/18 1108 Assessment Temperature Monitoring 16 Fr) 116 5 34 155 Tubes 3782 539 6617 2955 Drain/Tube Output (Drain/Tube 01/12/18 0100 Hemovac Midline Anterior Abdomen) 850 778 773 4119 Drain/Tube Output (Drain/Tube 01/12/18 Fecal Management System) 125 0 50 175 Output (GI Feed/Drain 01/12/18 0100) 355 100 100 555 Dialysis 564 1073 [id number] Dialysis Output (Ultrafiltration) 564 1073 2139 3776 Shift Total 2009 4230 2603 8947 Weight (kg) 104.2 104.2 104.2 104.2 104.2 104.2 104.2 104.2 MEDICATIONS Current Facility-Administered Medications: Parenteral Nutrition - Adult INTRAVENOUS ONCE TPN (1800 START) heparin 1,000 unit/mL 4,000 Units injection 4,000 Units INTRAVENOUS 3 Times weekly with dialysis NaCl 0.9% iv infusion 100 mL/hr INTRAVENOUS CONTINUOUS amiodarone 360 mg in D5W 200 mL (NEXTERONE) 0.5-1 mg/min INTRAVENOUS CONTINUOUS heparin 5,000 Units injection 5,000 Units SUBCUTANEOUS q 12 H propofol infusion (DIPRIVAN) 5-60 mcg/kg/min INTRAVENOUS CONTINUOUS ampicillin-sulbactam 3 g in NaCl 0.9% 100 mL MB+ (UNASYN) 3 g INTRAVENOUS q 6 H NaCl 0.9% 1,000 mL iv bolus 1,000 mL INTRAVENOUS PRN DIALYSIS prismaSOL BGK 4 K / 2.5 mEq Ca/Liter 5,000 mL 5,000 mL HEMODIALYSIS continuous (no dispense) prismaSOL BGK 4 K / 2.5 mEq Ca/Liter 5,000 mL 5,000 mL HEMODIALYSIS continuous (no dispense) prismaSOL BGK 4 K / 2.5 mEq Ca/Liter 5,000 mL 5,000 mL HEMODIALYSIS continuous (no dispense) dextrose 40 % 15 g 15 g ORAL PRN Or glucagon 1 mg injection (GLUCAGEN) 1 mg INTRAMUSCULAR PRN Or dextrose 50% in water 25 mL syringe 12.5 g INTRAVENOUS PRN magnesium sulfate 1 g in D5W 100 mL 1 g INTRAVENOUS PRN magnesium sulfate in water 2 g in sterile water 50 ml 2 g INTRAVENOUS PRN fentaNYL 20 mcg/mL iv infusion in NaCl 0.9% 100 mL 25-150 mcg/hr INTRAVENOUS CONTINUOUS pantoprazole 40 mg injection (PROTONIX) 40 mg INTRAVENOUS DAILY (6 AM) NORepinephrine 16 mg in D5W 250 mL (LEVOPHED) 0.6-40 mcg/min INTRAVENOUS CONTINUOUS Chlorhexidine Gluconate 0.12 % 15 mL (PERIDEX) 15 mL ORAL q 12 H Labs: Recent Labs 01/17/18 0435 01/16/18 1955 01/16/18 0430 01/15/18 1000 01/15/18 0745 01/15/18 0400 01/14/18 1555 NA 137 137 -- 137 < > 135* -- -- 137 < > 142 K 4.0 3.9 -- 3.9 < > 4.1 -- -- 4.3 < > 4.5 CHLOR 106 105 -- 105 < > 104 -- -- 105 < > 111* CO2 24 24 -- 23 < > 20* -- -- 21 < > 22 BUN 12 11 -- 11 < > 14 -- -- 16 < > 17 CREAT 1.67* 1.83* -- 1.75* < > 1.93* -- -- 2.10* < > 2.10* GLUC 171* 106* -- 88 < > 134* -- -- 112* < > 78 ANION 11 12 -- 13 < > 15 -- -- 15 < > 14 CA 6.2* 6.9* -- 6.7* < > 6.3* -- -- 6.4* < > 6.4* MG 2.3 -- -- 2.2 -- -- -- -- 2.3 < > -- P 3.3 -- -- 2.5 -- 3.4 -- -- 1.9* < > -- ALB -- -- -- -- -- -- -- -- -- -- 1.7* AST -- -- -- -- -- -- -- -- -- -- 69* ALT -- -- -- -- -- -- -- -- -- -- 13 ALKPHOS -- -- -- -- -- -- -- -- -- -- 67 TBILI -- -- -- -- -- -- -- -- -- -- 2.9* WBC 8.70 11.42* < > 10.93* < > 11.75* -- < > -- < > -- HB 10.6* 10.3* < > 11.2* < > 12.2* -- < > -- < > -- HCT 30.5* 30.1* < > 32.2* < > 36.0* -- < > -- < > -- PLT 59* 65* < > 56* < > 55* -- < > -- < > -- LACT -- -- -- -- -- 1.5 -- -- 1.7 < > 2.4* INR -- -- -- -- -- 1.22 1.18 -- -- < > 1.31 PH 7.352 7.315* < > 7.397 < > 7.427 -- -- 7.407 < > 7.316* PCO2 42.7 45.4 < > 35.2* < > 30.7* -- -- 33.6* < > 42.8 PO2 78.8* 72.9* < > 108.6* < > 78.6* -- -- 79.4* < > 72.8* BE -2.4 -3.5 < > -3.0 < > -3.8 -- -- -3.3 < > -4.6 < > = values in this interval not displayed. Exam: GENERAL: No distress NEURO: intubated/sedated HEENT: normocephalic, atraumatic LUNGS: Unlabored breathing O2 Therapy: Ventilator CARDIAC: Regular rate and rhythm as above ABDOMEN: Soft, mild D, NT, VAC intact w SS output EXTREMITIES: MAK, No deformities, + edema, palpable pulses SKIN: Skin color, texture, turgor normal, No rashes or lesions ASSESSMENT AND PLAN: Active Hospital Problems Diagnosis Date Noted - Ruptured abdominal aortic aneurysm (AAA) ([facility]) 01/12/2018 - Obesity, Class I, BMI 30-34.9 01/16/2018 - Encephalopathy 01/13/2018 - DIC (disseminated intravascular coagulation) ([facility]) 01/12/2018 - Hemorrhagic shock ([facility]) 01/12/2018 - Acute respiratory failure ([facility]) 01/12/2018 - Cardiac arrest ([facility]) 01/12/2018 - Hypernatremia 01/12/2018 - Hypokalemia 01/12/2018 - Hypomagnesemia 01/12/2018 - Hypophosphatemia 01/12/2018 - Hyperchloremia 01/12/2018 - AAA (abdominal aortic aneurysm, ruptured) ([facility]) 01/12/2018 Overview Note: Added automatically from request for surgery [id number] 77 year old male with Ruptured AAA s/p Emergent Repair, takeback washout, repair of serosal tears x2, on 01/12, hemorrhagic shock, acute resp failure with pulm edema, TERENCE, SVT, s/p Third Look Laparotomy and?washout on 01/14, fourth look, washout, vac change on 01/16 ? - Vent mgmt per MICU - NPO/TPN - Wean Levo as able - Acute blood loss and dilutional anemia and thrombocytopenia - monitor, transfuse prn - q6 labs - Cont Abthera VAC - TERENCE -->?CVVHD per?Nephro - CXR with bilateral pulm edema/effusions, unchanged - Unasyn empirically per MICU - Hypophos and hypocalcemia?- replacing - Amio per Cards for SVT - cont scrotal support ?? Assessment and plan discussed with attending: Dr. Paniagua SIGNATURE: Dionicio Stevens MD PATIENT NAME: Naveen Akins DATE: January 17, 2018 TIME: 6:31 AM Vascular AND Thoracic Surgery Service Pager: For questions or concerns Mon-Tue 6a-5p please page [phone]. After 5pm and on Weekends and Holidays, please page [phone] if in ICU or [phone] if on RNF. CHEST 1 VIEW Observed: 01/17/2018 Status: F Source: [facility] 5:41 AM HEALTH SYSTEM REPOSITORY Performed at [facility] APPROVED BY: NEMO TAN MD EXAMINATION: CHEST RADIOGRAPH (SINGLE VIEW AP OR PA) Clinical History: Evaluate tube, line or lead position M: [id number] Comparison: 01/16/2018 RESULT: Lines, tubes, and devices: Tip of the endotracheal tube remains in stable position 5.7 cm proximal to the kianna. Right and left internal jugular central venous catheters remain in stable and satisfac tory position. Orogastric tube remains in place extending inferiorly below the diaphragm out of the field of view. Monitoring wires course over both hemithoraces. Lungs and pleura: Pulmonary vasculature is congested and there are bilateral infiltrates with bilateral pleural effusions. Cardiomediastinal silhouette: Stable cardiomediastinal silhouette. IMPRESSION: Stable chest. Pulmonary vascular congestion with bilateral infiltrates and bilateral pleural effusions. BLOOD GAS ARTERIAL Collected: 01/17/2018 Status: F Source: [facility] 4:35 AM HEALTH SYSTEM REPOSITORY TYPE CODE TESTS RESULT OUT OF REFERENCE UNITS RANGE LAB FIO2(LOINC % ) FIO2 40 LAB TEMPA(LOIN C) Temperature 36.2 LAB PH(LOINC) 7.350-7.450 pH Arterial 7.352 LAB PCO2(LOINC 36.0-46.0 mm Hg ) PCO2 Arterial 42.7 LAB PO2(LOINC) 85.0-96.0 mm Hg Low PO2 Arterial 78.8 LAB HCO3A(LOIN 22.0-26.0 mEq/L C) HCO3- 23.4 LAB O2%A(LOINC 95.0-98.0 % ) O2% Sat Arterial 96.3 LAB BASEX(LOIN -2.5 to 2.5 mEq/L C) Base Excess -2.4 Performed By: #### ABG #### [place] [address] IONIZED CALCIUM Collected: 01/17/2018 Status: F Source: [place] [address]:35 HEALTH SYSTEM REPOSITORY TYPE CODE TESTS RESULT OUT OF REFERENCE UNITS RANGE LAB CAION(LOINC 4.43-4.93 mg/dL ) Low Ionized 3.98 Calcium LAB PHCAI(LOINC 7.320-7.420 ) pH 7.335 LAB CAPH(LOINC) 4.36-4.73 mg/dL Low Ionized 3.85 Ca,PH7.4 Performed By: #### IONCA #### [place] [address] MAGNESIUM BLOOD Collected: 01/17/2018 Status: F Source: [facility] 4:35 HEALTH SYSTEM REPOSITORY TYPE CODE TESTS RESULT OUT OF REFERENCE UNITS RANGE LAB MAG(LOINC) 1.6-2.6 mg/dL Magnesium Blood 2.3 Performed By: #### MAG #### [place] [address] PHOSPHORUS BLOOD Collected: 01/17/2018 Status: F Source: [facility] 4:35 HEALTH SYSTEM REPOSITORY TYPE CODE TESTS RESULT OUT OF REFERENCE UNITS RANGE LAB PHOS(LOINC 2.5-4.9 mg/dL ) Phosphorus Blood 3.3 Performed By: #### PHOS #### [place] [address] HEMOGRAM/DIFF Collected: 01/17/2018 Status: F Source: [facility] 4:35 AM HEALTH SYSTEM REPOSITORY TYPE CODE TESTS RESULT OUT OF REFERENCE UNITS RANGE LAB WBC(LOINC) 4.23-9.07 thou/cmm WBC 8.70 LAB RBC(LOINC) 4.63-6.08 mil/cmm Low RBC 3.58 LAB HGB(LOINC) 13.7-17.5 g/dL Low Hgb 10.6 LAB HCT(LOINC) 40.1-51.0 % Low Hct 30.5 LAB MCV(LOINC) 83.2-95.6 fl MCV 85.2 LAB MCH(LOINC) 25.7-32.2 pg MCH 29.6 LAB MCHC(LOINC) 32.3-36.5 % MCHC 34.8 LAB RDW(LOINC) 11.6-14.4 % High RDW 17.0 LAB RDWSD(LOINC 36.1-45.8 fl ) High RDW SD 53.8 LAB PLT(LOINC) 141-365 thou/cmm Low Platelet 59 Result Comment: Smear scanned; tech agrees with automated differential LAB MPV(LOINC) 8.7-12.0 fl MPV High 12.1 LAB SEG(LOINC) % Seg Neutrophil 76.4 LAB IGRE(LOINC) % Immature Grans 1.30 LAB LYMPH(LOINC) % Lymphocyte 6.4 LAB MNO(LOINC) % Monocyte 4.3 LAB EOSIN(LOINC) % Eosinophil 11.4 LAB BASO(LOINC) % Basophil 0.2 LAB SEGN(LOINC) 1.78-5.38 thou/cmm Abs. High Neut (ANC) 6.65 LAB IGAB(LOINC) 0.00-0.05 thou/cmm Abs High Immature Grans 0.11 LAB LYMN(LOINC) 0.84-2.85 thou/cmm Abs. Low Lymph 0.56 LAB MONON(LOINC) 0.30-0.82 thou/cmm Abs. Rincon 0.37 LAB EOSN(LOINC) 0.04-0.54 thou/cmm Abs. High Eosin 0.99 LAB BASON(LOINC) 0.01-0.08 thou/cmm Abs. Baso 0.02 Performed By: #### CBCD1 #### [facility] [address] [place] [address] BLOOD GAS ARTERIAL Collected: 01/16/2018 Status: F Source: [address] SYSTEM REPOSITORY TYPE CODE TESTS RESULT OUT OF REFERENCE UNITS RANGE LAB TEMPA(LOIN C) Temperature 37.0 LAB PH(LOINC) 7.350-7.450 Low pH Arterial 7.315 LAB PCO2(LOINC 36.0-46.0 mm Hg ) PCO2 Arterial 45.4 LAB PO2(LOINC) 85.0-96.0 mm Hg Low PO2 Arterial 72.9 LAB HCO3A(LOIN 22.0-26.0 mEq/L C) HCO3- 22.6 LAB O2%A(LOINC 95.0-98.0 % ) Low O2% Sat Arterial 94.1 LAB BASEX(LOIN -2.5 to 2.5 mEq/L C) Base Excess -3.5 LAB FIO2(LOINC % ) FIO2 Value Not Given Performed By: #### ABG #### [facility] [address] [place] [id number] HEMOGRAM Collected: 01/16/2018 Status: F Source: [address] SYSTEM REPOSITORY TYPE CODE TESTS RESULT OUT OF REFERENCE UNITS RANGE LAB WBC(LOINC) 4.23-9.07 thou/cmm High WBC 11.42 LAB RBC(LOINC) 4.63-6.08 mil/cmm Low RBC 3.55 LAB HGB(LOINC) 13.7-17.5 g/dL Low Hgb 10.3 LAB HCT(LOINC) 40.1-51.0 % Low Hct 30.1 LAB MCV(LOINC) 83.2-95.6 fl MCV 84.8 LAB MCH(LOINC) 25.7-32.2 pg MCH 29.0 LAB MCHC(LOINC) 32.3-36.5 % MCHC 34.2 LAB RDW(LOINC) 11.6-14.4 % High RDW 17.0 LAB RDWSD(LOINC 36.1-45.8 fl ) High RDW SD 53.2 LAB PLT(LOINC) 141-365 thou/cmm Low Platelet 65 Result Comment: Smear scanned tech agrees with platelet count LAB MPV(LOINC) 8.7-12.0 fl MPV 10.6 Performed By: #### CBC1 #### [facility] [address] [place] [id number] BASIC PANEL Collected: 01/16/2018 Status: F Source: [facility] 7:55 PM HEALTH SYSTEM REPOSITORY TYPE CODE TESTS RESULT OUT OF REFERENCE UNITS RANGE LAB NA(LOINC) 136-145 mEq/L Sodium Blood 137 LAB K(LOINC) 3.5-5.1 mEq/L Potassium Blood 3.9 LAB CL(LOINC) 98-107 mEq/L Chloride Blood 105 LAB CO2(LOINC) 21-32 mEq/L CO2 Blood 24 LAB BUN(LOINC) 7-18 mg/dL BUN Blood 11 LAB CREA(LOINC 0.67-1.17 mg/dL ) High Creatinine Blood 1.83 LAB CA(LOINC) 8.5-10.1 mg/dL Low Calcium Blood 6.9 LAB ANGAP(LOIN 8-16 C) Anion Gap 12 LAB GLU(LOINC) 70-99 mg/dL Glucose High Blood 106 Performed By: #### P8 #### [facility] [address] [place] [id number] PROGRESS Observed: 01/16/2018 Status: COMPLETED Source: [place] 7:34 PM [facility] OTHER [place] REPOSITORY HNO ID: [id number] Author: Ariadna (Rn) MAGALY Stewart Service: Abstract Author Type: Registered Nurse Type: Progress Notes Filed: 01/16/2018 7:36 PM Note Text: crrt taken off per supervisor agricultural education at around 1645 for OR trip/ crrt resumed at 1930/ on 4 k bfr 200 flows at 700 / supervisor agricultural education to try to remove some fluid off per hour depending on bp/ drsg changed to LIJ dialysis catheter/ hemosafe device x2 - report to supervisor agricultural education /ariadna stewart rn ANES POST Observed: 01/16/2018 Status: COMPLETED Source: [place] 7:07 PM [facility] OTHER [place] REPOSITORY HNO ID: [id number] Author: Derian Barlow Service: Anesthesiology Author Type: Physician Type: Anesthesia PostOp Filed: 01/16/2018 7:08 PM Note Text: POST ANESTHESIA EVALUATION NOTE SERVICE DATE: 01/16/2018 SERVICE TIME: 1907 : 1940 Vitals: 01/16/18 0000 01/16/18 0500 01/16/18 0710 01/16/18 1110 Temp: 36.5 ?C (97.7 ?F) 36.1 ?C (97 ?F) 36 ?C (96.8 ?F) (!) 35.9 ?C (96.7 ?F) 01/16/18 1700 01/16/18 18101/16/18 18301/16/18 1845 Arterial BP 1: 110/47 125/52 145/59 112/48 BP: 01/16/18 17001/16/18 1815 01/16/18 1830 01/16/18 184 Pulse: 84 86 91 88 01/16/18 17001/16/18 18101/16/18 18301/16/18 184 Resp: 17 16 15 16 01/16/18170401/16/18181401/16/18 18301/16/18 1845 SpO2: 91% 95% 90% 96% Validated Vital Signs: Yes POST ANES STATUS: No apparent anesthetic complications. The patient is appropriately hydrated with stable respiratory and cardiovascular status. Patient has safe and adequate airway control. The patient has appropriate pain relief and no significant post operative nausea or vomiting. The patient has achieved baseline mental status. Further assessment by Anesthesia Service: None Other Remarks: SIGNATURE: Derian Barlow MD PATIENT NAME: Naveen Akins DATE: January 16, 2018 TIME: 7:08 PM PAGER/CONTACT #: ANES PREOP Observed: 01/16/2018 Status: COMPLETED Source: [place] 7:06 PM [facility] REPOSITORY [facility] ID: [id number] Author: Derian Barlow Service: Anesthesiology Author Type: Physician Type: Anesthesia PreOp Filed: 01/16/2018 7:07 PM Note Text: ANESTHESIOLOGY DAY OF SURGERY NOTE SERVICE DATE: 01/16/2018 SERVICE TIME: 1629 : 1940 Procedure(s) (LRB): EXPLORATORY LAPAROTOMY, WASHOUT, ABTHERA VAC CHANGE (N/A) Surgeon(s): Venkat Brunner (Res) Paandrew Estimated body mass index is 34.93 kg/m? as calculated from the following: Height as of this encounter: 172.7 cm (5' 8). Weight as of this encounter: 104.2 kg (229 lb 11.5 oz). Most recent hematocrit and potassium results: Hematocrit 29.6 01/16/2018 Potassium 3.9 01/16/2018 ANES DOS/PREOP NOTE: Vitals: 01/16/18 1705 01/16/18 1815 01/16/18 1830 01/16/18 1845 BP: Pulse: 84 86 91 88 Resp: 17 16 15 16 Temp: TempSrc: SpO2: 91% 95% 90% 96% Weight: Height: ACTIVE PROBLEM LIST Gallstone Pancreatitis Ruptured Abdominal Aortic Aneurysm (Aaa) (Hcc) Dic (Disseminated Intravascular Coagulation) (Hcc) Hemorrhagic Shock (Hcc) Acute Respiratory Failure (Hcc) Cardiac Arrest (Hcc) Hypernatremia Hypokalemia Hypomagnesemia Hypophosphatemia Hyperchloremia Encephalopathy Aaa (Abdominal Aortic Aneurysm, Ruptured) (Hcc) Obesity, Class I, Bmi 30-34.9 PAST MEDICAL HISTORY Diagnosis Date - DIC (disseminated intravascular coagulation) (HCC) 01/12/2018 PAST SURGICAL HISTORY Procedure Laterality Date - LAP CHOLECYSTECT/CHOLANGIOGRAPHY 05-28-09 - REPAIR UMBILICAL NATAN,5+Y/O,REDUC 05-28-09 FAMILY HISTORY Problem Relation Age of Onset - Coronary Artery Disease Father - None Mother Social History: Social History Substance Use Topics - Smoking status: Never Smoker - Smokeless tobacco: Not on file - Alcohol use No No current facility-administered medications on file prior to encounter. Current Outpatient Prescriptions on File Prior to Encounter: metoprolol succinate(TOPROL XL 50 MG 24 HR TAB) Take one(1) tablet daily. ASPIRIN 325 MG TAB Take one(1) tablet daily. triamterene/hydrochlorothiazid(DYAZIDE 37.5 MG-25 MG CAP) take one half (1/2) tablet daily LIPITOR 10 MG TAB Take one(1) tablet daily. Current Facility-Administered Medications: [MAR Hold due to Transfer] Parenteral Nutrition - Adult INTRAVENOUS ONCE TPN (1800 START) Perla Dudley Last Rate: 100 mL/hr at 01/16/18 1851 [MAR Hold due to Transfer] heparin 1,000 unit/mL 4,000 Units injection 4,000 Units INTRAVENOUS 3 Times weekly with dialysis Troy Godoy 1.4 mL at 01/16/18 1739 [MAR Hold due to Transfer] NaCl 0.9% iv infusion 100 mL/hr INTRAVENOUS CONTINUOUS Dionicio (Res) Stevens Last Rate: 100 mL/hr at 01/16/181842 100 mL/hr at 01/16/181842 [MAR Hold due to Transfer] amiodarone 360 mg in D5W 200 mL (NEXTERONE) 0.5-1 mg/min INTRAVENOUS CONTINUOUS Paulo (Meter Repair Shop Supervisor) Hudock Last Rate: 16.67 mL/hr at 01/16/181842 0.5 mg/min at 01/16/181842 [MAR Hold due to Transfer] heparin 5,000 Units injection 5,000 Units SUBCUTANEOUS q 12 H Christopher (Res) Wally 5,000 Units at 01/16/18 0845 [MAR Hold due to Transfer] propofol infusion (DIPRIVAN) 5- 60 mcg/kg/min INTRAVENOUS CONTINUOUS Chente Whittaker Last Rate: 14.42 mL/hr at 01/16/18 1323 30 mcg/kg/min at 01/16/18 1323 [MAR Hold due to Transfer] ampicillin-sulbactam 3 g in NaCl 0.9% 100 mL MB+ (UNASYN) 3 g INTRAVENOUS q 6 H Chente R Panfilo Last Rate: 200 mL/hr at 01/16/181840 3 g at 01/16/181840 [MAR Hold due to Transfer] NaCl 0.9% 1,000 mL iv bolus 1,000 mL INTRAVENOUS PRN DIALYSIS Shen Lorenzo [MAR Hold due to Transfer] prismaSOL BGK 4 K / 2.5 mEq Ca/Liter 5,000 mL 5,000 mL HEMODIALYSIS continuous (no dispense) Shen Lorenzo Last Rate: 700 mL/hr at 01/16/18 1300 5,000 mL at 01/16/18 1300 [MAR Hold due to Transfer] prismaSOL BGK 4 K / 2.5 mEq Ca/Liter 5,000 mL 5,000 mL HEMODIALYSIS continuous (no dispense) Shen Lorenzo Last Rate: 700 mL/hr at 01/16/18 1300 5,000 mL at 01/16/18 1300 [MAR Hold due to Transfer] prismaSOL BGK 4 K / 2.5 mEq Ca/Liter 5,000 mL 5,000 mL HEMODIALYSIS continuous (no dispense) Shen Lorenzo Last Rate: 700 mL/hr at 01/16/18 1300 5,000 mL at 01/16/18 1300 [MAR Hold due to Transfer] dextrose 40 % 15 g 15 g ORAL PRN Jack Regula Or [MAR Hold due to Transfer] glucagon 1 mg injection (GLUCAGEN) 1 mg INTRAMUSCULAR PRN Jack Regula Or [MAR Hold due to Transfer] dextrose 50% in water 25 mL syringe 12.5 g INTRAVENOUS PRN Jack Regula [MAR Hold due to Transfer] magnesium sulfate 1 g in D5W 100 mL 1 g INTRAVENOUS PRN Emilie (Res) Cardella Last Rate: 100 mL/hr at 01/15/18 0016 1 g at 01/15/18 0016 [MAR Hold due to Transfer] magnesium sulfate in water 2 g in sterile water 50 ml 2 g INTRAVENOUS PRN Emilie (Res) Cardella Last Rate: 25 mL/hr at 01/13/18 1004 2 g at 01/13/18 1004 [MAR Hold due to Transfer] fentaNYL 20 mcg/mL iv infusion in NaCl 0.9% 100 mL 25-150 mcg/hr INTRAVENOUS CONTINUOUS Emilie (Res) Cardella Last Rate: 7.5 mL/hr at 01/16/18 1844 150 mcg/hr at 01/16/18 184 [MAR Hold due to Transfer] pantoprazole 40 mg injection (PROTONIX) 40 mg INTRAVENOUS DAILY (6 AM) Emilie (Res) Cardella 40 mg at 01/16/18 0520 [MAR Hold due to Transfer] NORepinephrine 16 mg in D5W 250 mL (LEVOPHED) 0.6-40 mcg/min INTRAVENOUS CONTINUOUS Chente R Cucsilas Last Rate: 20.63 mL/hr at 01/16/18 1843 22 mcg/min at 01/16/18 184 [MAR Hold due to Transfer] Chlorhexidine Gluconate 0.12 % 15 mL (PERIDEX) 15 mL ORAL q 12 H Elder Granda 15 mL at 01/16/18 0845 Allergies: ALLERGIES No Known Allergies DOS EXAM: Adequate NPO status: Yes Anesthetic risks, benefits, alternatives, personnel and consent discussed: Yes Patient agrees to proceed: Yes Previous Anesthesia: No history of adverse event. Airway Assessment: Patient intubated or has existing tracheostomy. Symptoms of Sleep Apnea: N/A Dentition: N/A Additional Physical Exam: Lungs: Lungs clear to auscultation. Good diaphragmatic excursion. Cardiac: normal S1 and S2; no rubs, no murmurs, and no gallops Additional Pertinent Findings: N/A Blood Products: Not anticipated for this procedure. Anesthetic Plan: General, Standard ASA Monitors Pain Management Plan: Parenteral or Oral ASA Class: 4 Other Medical Problems: None Chronic Beta Lyric medication administered within 24 hours: N/A I have interviewed and examined the patient. I have reviewed the medical record and/or the pre-anesthesia evaluation, pertinent labs, and test results. Significant changes in the patient's condition since the History and Physical, not otherwise documented in primary service progress notes: No This contains updated information obtained within 48 hours of Surgery/Procedure. SIGNATURE: Derian Barlow MD PATIENT NAME: Naveen Akins DATE: January 16, 2018 TIME: 7:06 PM CSN: [id number] BRIEF OP NOT Observed: 01/16/2018 Status: COMPLETED Source: [place] 6:12 PM [facility] REPOSITORY HNO ID: [id number] Author: Kannan Felder Service: General Surgery Author Type: Resident Type: Brief Op Note Filed: 01/16/2018 6:13 PM Note Text: BRIEF OPERATIVE / PROCEDURE NOTE LOG ID: [id number] SURGERY/PROCEDURE DATE: 01/16/2018 INCISION/PROCEDURE START TIME: 5:30 PM INCISION CLOSE/PROCEDURE END TIME: 5:57 PM SURGEON(S)/PROCEDURALIST(S) AND VISUAL ARTS TEACHER(S): Surgeon(s) and Role: * Venkat Paniagua - Primary * Kannan Felder - Resident - Assisting Dyed Yarn Operator: Dorcas Schuler SA SURGERY/PROCEDURE(S): exploratory laparotomy. Change of wound vac, abdominal washout. ANESTHESIA: General FINDINGS: no evidence of bowel ischemia. Unable to close fascial defect at least 12 cm of defect remain. ESTIMATED BLOOD LOSS: 20 mls SPECIMENS: None COMPLICATIONS: None PRE-OP/PRE-PROCEDURE DIAGNOSIS: s/p ruptured AAA. POST-OP/POST-PROCEDURE DIAGNOSIS: s/p AAA abdominal aortic aneurysm, ruptured open abdominal cavity SIGNATURE: Kannan Felder MD PATIENT NAME: Naveen Akins DATE: January 16, 2018 TIME: 6:12 PM PAGER/CONTACT #: NURSING PROG Observed: 01/16/2018 Status: COMPLETED Source: [place] 5:43 PM CLINIC OTHER CAMPUS REPOSITORY HNO ID: [id number] Author: Yessica (Rn) MAGALY Guy Service: Nursing Author Type: Registered Nurse Type: Nursing Progress Note Filed: 01/16/2018 5:44 PM Note Text: Whenever this patient comes back to the OR to be closed, an xray needs to be done prior to. PER DR. PANIAGUA PHERESED PLATELETS Collected: 01/16/2018 Status: F Source: [facility] 5:11 PM HEALTH SYSTEM REPOSITORY TYPE CODE TESTS RESULT OUT OF REFERENCE UNITS RANGE LAB PPHR(LOINC) Pheresed Plts Done unit 1 Performed By: #### PPHRS #### [facility] [address] [place] [address] 12 LEAD ELECTROCARDIOGRAM Observed: 01/16/2018 Status: F Source: [place] 3:03 PM [facility] REPOSITORY [facility] Cardiovascular Services [address] [place] [address] 12 Lead EKG 01/11/18 2330 MR#: [id number] Acct: [id number] Name: NAVEEN AKINS Kaylah Rep #: [id number] : 1940 77 From: Jax Finnegan MD Attending Dr: Status: DEP ER Ordering Dr: Kathy Dill Date: 01/11/18 Location: ED Sex: M C Admitted: Test Reason : SYNCOPE Blood Pressure : / mmHG Vent. Rate : 105 BPM Atrial Rate : 105 BPM P-R Int : 124 ms QRS Dur : 070 ms QT Int : 360 ms P-R-T Axes : -14 -03 031 degrees QTc Int : 475 ms Sinus tachycardia Nonspecific ST abnormality Abnormal ECG Confirmed by JAX FINNEGAN MD ([id number]), purchasing expeditor KATHY SILVA ([id number]) on 01/16/2018 3:03:17 PM Referred By: TA Confirmed By:JAX FINNEGAN MD 01/16/18 1503 Date Jax Finnegan MD CC: Kathy Dill; Jack Olmedo MD Signed CASE MANAGEM Observed: 01/16/2018 Status: COMPLETED Source: [place] 2:38 PM CLINIC OTHER CAMPUS REPOSITORY HNO ID: [id number] Author: Viktoriya Garcia) MAGALY Alvarado Service: Care Management Author Type: Registered Nurse Type: Care Mgt Progress Note Filed: 01/16/2018 2:40 PM Note Text: CARE MANAGEMENT PROGRESS NOTE SERVICE DATE: 01/16/2018 SERVICE TIME: 2:38 PM LOS: 4 days Chart reviewed. Patient remains in CVICU. Plan for return to OR today with Vascular Surgery. Remains intubated, on CVVHD. Plan to start TPN. Continue to follow to assist with transitional needs. SIGNATURE: Viktoriya Alvarado RN PATIENT NAME: Naveen Akins DATE: January 16, 2018 TIME: 2:38 PM PAGER/CONTACT #: [phone] NUTRITION Observed: 01/16/2018 Status: COMPLETED Source: [place] 1:44 PM CLINIC OTHER CAMPUS REPOSITORY HNO ID: [id number] Author: Jaimie Perez RD Service: Nutrition Therapy Author Type: Registered Dietitian Type: Nutrition Filed: 01/16/2018 2:48 PM Note Text: NUTRITION THERAPY INITIAL ASSESSMENT SERVICE DATE: 01/16/2018 SERVICE TIME: 1050am RECOMMENDED MALNUTRITION DIAGNOSIS: NO MALNUTRITION IDENTIFIED NUTRITION CARE PLAN: Problem, Etiology and Signs/Symptoms: Altered GI function related to potential ileus as evidenced by lack of bowel sounds, distended abdomen, and hypotension. Intervention: Short term tpn until bowel fxn adequate-------> 80 gms pro, 1820 kcals as ordered meeting low end needs. Adjust volume and protein per renal plans while currently on CVVHD Reassess nutrient needs based on clinical course TF transition as tolerated Coordination of Care: d/w RN Monitor and Evaluation: Goal: Meet >75% of estimated needs Monitor fluid/electrolyte balance Monitor labs, I/Os, vital signs, weight Discharge Nutrition Recommendations: To be determined Per HPI: This is a 77 year old male transferred in critical condition from [facility] with diagnosed ruptured AAA. Patient was life-flighted to [facility]. Intubated at outside facility. Per EMS, patient went into cardiac arrest immediately prior to arrival and CPR was initiated. 4 U prbc given prior to arrival. Patient was taken emergently to OR on arrival. CPR was continued en route. ? PAST MEDICAL HISTORY Diagnosis Date - DIC (disseminated intravascular coagulation) (HCC) 01/12/2018 PAST SURGICAL HISTORY Procedure Laterality Date - LAP CHOLECYSTECT/CHOLANGIOGRAPHY 05-28-09 - REPAIR UMBILICAL NATAN,5+Y/O,REDUC 05-28-09 ; Internal Hx: S/p emergent AAA repair 2/2 rupture. S/p take back 2nd look and repair of tears X 2. Started CVVHD. Weaning pressors. EEG monitoring with encephalopathy s/p arrest. Further surgical plans for wound closure. Minimal bowel activity. NPO since admit X 4 days after tx from [facility]. Present Diet Order: NPO Enteral Access: NG Nutritional Intake Prior to Admission: Intake hx unknown;tx from [facility] and has not been on support yet here. GI symptoms: unable to determine at this time Abdominal Exam: bowel sounds are hypoactive Is the patient having any pain that is interfering with oral/enteral intake? Unable to assess ANTHROPOMETRICS Height: 172.7 cm (5' 8) Admission Weight: 80.1 kg (176 lb 9.4 oz) Current Weight: 104.2 kg (229 lb 11.5 oz) Body mass index is 34.93 kg/m?. class 2 obesity Scant wt hx and with +++ edema Last Wt 01/16/18 : 104.2 kg (229 lb 11.5 oz) [place] Body Weight: 96kg Resting Metabolic Rate: 1746 Estimated kilocalorie needs: 9627-0633 kilocalories determined by 20-25 kcal/kg Estimated protein needs: 144 grams determined by 1.5gms/kg [place] weight Estimated fluid needs: per renal NUTRITION FOCUSED PHYSICAL EXAM: Limited exam d/t pt unstable on vent with active CVVHD. Multiple drains, tubes, and wounds. Subcutaneous Fat Loss Orbital No fat loss Triceps Unable to determine at this time Mid-axillary at the iliac crest Unable to determine at this time Muscle Loss Locations: Temporalis No muscle loss Pectoralis No muscle loss Deltoids No muscle loss Interosseous Unable to determine at this time Latissimus dorsi, trapezius Unable to determine at this time Quadriceps Unable to determine at this time d/t significant edema Gastrocnemius Unable to determine at this time Potential micronutrient deficiency revealed in: No deficiency identified Edema: Yes Lower extremities ++++ Ascites: Yes d/t pulmonary edema and effusions Assessment of Functional Status: Unable to assess Temperature Max in 24 hours: Temp (24hrs), Av.6 ?C (97.8 ?F), Min:35.9 ?C (96.7 ?F), Max:37 ?C (98.6 ?F) BP 108/52 Pulse 77 Temp (!) 35.9 ?C (96.7 ?F) (Temporal Artery) Resp 18 Ht 172.7 cm (5' 8) Wt 104.2 kg (229 lb 11.5 oz) SpO2 92% BMI 34.93 kg/m? Recent Labs 01/16/18 1145 01/16/18 0430 01/14/18 1555 GLUC -- 88 < > 78 BUN -- 11 < > 17 CREAT -- 1.75* < > 2.10* NA -- 137 < > 142 K -- 3.9 < > 4.5 CHLOR -- 105 < > 111* CO2 -- 23 < > 22 ALB -- -- -- 1.7* HB 10.4* 11.2* < > -- HCT 29.6* 32.2* < > -- WBC 8.26 10.93* < > -- P -- 2.5 < > -- MG -- 2.2 < > -- < > = values in this interval not displayed. Potential Signs of Inflammation: leukocytosis and imaging studies Current Facility-Administered Medications: NaCl 0.9% iv infusion 100 mL/hr INTRAVENOUS CONTINUOUS amiodarone 360 mg in D5W 200 mL (NEXTERONE) 0.5-1 mg/min INTRAVENOUS CONTINUOUS heparin 5,000 Units injection 5,000 Units SUBCUTANEOUS q 12 H propofol infusion (DIPRIVAN) 5-60 mcg/kg/min INTRAVENOUS CONTINUOUS ampicillin-sulbactam 3 g in NaCl 0.9% 100 mL MB+ (UNASYN) 3 g INTRAVENOUS q 6 H NaCl 0.9% 1,000 mL iv bolus 1,000 mL INTRAVENOUS PRN DIALYSIS prismaSOL BGK 4 K / 2.5 mEq Ca/Liter 5,000 mL 5,000 mL HEMODIALYSIS continuous (no dispense) prismaSOL BGK 4 K / 2.5 mEq Ca/Liter 5,000 mL 5,000 mL HEMODIALYSIS continuous (no dispense) prismaSOL BGK 4 K / 2.5 mEq Ca/Liter 5,000 mL 5,000 mL HEMODIALYSIS continuous (no dispense) dextrose 40 % 15 g 15 g ORAL PRN Or glucagon 1 mg injection (GLUCAGEN) 1 mg INTRAMUSCULAR PRN Or dextrose 50% in water 25 mL syringe 12.5 g INTRAVENOUS PRN magnesium sulfate 1 g in D5W 100 mL 1 g INTRAVENOUS PRN magnesium sulfate in water 2 g in sterile water 50 ml 2 g INTRAVENOUS PRN fentaNYL 20 mcg/mL iv infusion in NaCl 0.9% 100 mL 25-150 mcg/hr INTRAVENOUS CONTINUOUS pantoprazole 40 mg injection (PROTONIX) 40 mg INTRAVENOUS DAILY (6 AM) NORepinephrine 16 mg in D5W 250 mL (LEVOPHED) 0.6-40 mcg/min INTRAVENOUS CONTINUOUS Chlorhexidine Gluconate 0.12 % 15 mL (PERIDEX) 15 mL ORAL q 12 H Intake/Output 01/12/18 0700 - 01/13/18 0659 01/13/18 07 - 01/14/18 0659 01/14/18 07 - 01/15/18 0659 01/15/18 0700 - 01/16/18 0659 01/16/18 0700 - 01/17/18 0659 Intake (ml) 55748 8893.5 9167.4 8388 1518.2 Output (ml) 6865 5529 9661 90095 1791 Net (ml) 4742 3364.5 -493.6 -1754 -272.8 Negative Pressure Wound Therapy 01/12/18 0749 Abdomen (Active) Negative Pressure: Output (mL) 500 01/14/2018 5:00 PM Number of days: 4 Surgical Incision 01/12/18 0619 Abdomen - Midline (Active) Dressing Status Intact 01/16/2018 8:00 AM Frequency of Dressing Change As Needed;Every 3 Days 01/16/2018 8:00 AM Dressing Change Due 01/16/18 01/16/2018 8:00 AM Dressing /Treatment Type Negative Pressure Wound Therapy 01/16/2018 8:00 AM Incision Closures None 01/16/2018 8:00 AM Drainage Description Serosanguineous 01/16/2018 8:00 AM Drainage Amount Large 01/16/2018 8:00 AM Edges Broken 01/16/2018 8:00 AM Hematoma No 01/16/2018 8:00 AM Number of days: 4 MNT Billing Type: Initial Assess/15 min 4 units SIGNATURE: Jaimie Perez RD PATIENT NAME: Naveen Akins DATE: January 16, 2018 TIME: 1:44 PM PAGER: [phone] BLOOD GAS ARTERIAL Collected: 01/16/2018 Status: F Source: [facility] 11:45 HEALTH SYSTEM REPOSITORY TYPE CODE TESTS RESULT OUT OF REFERENCE UNITS RANGE LAB FIO2(LOINC % ) FIO2 40 LAB TEMPA(LOIN C) Temperature 37.0 LAB PH(LOINC) 7.350-7.450 pH Arterial 7.363 LAB PCO2(LOINC 36.0-46.0 mm Hg ) PCO2 Arterial 40.5 LAB PO2(LOINC) 85.0-96.0 mm Hg Low PO2 Arterial 71.6 LAB HCO3A(LOIN 22.0-26.0 mEq/L C) HCO3- 22.5 LAB O2%A(LOINC 95.0-98.0 % ) Low O2% Sat Arterial 94.8 LAB BASEX(LOIN -2.5 to 2.5 mEq/L C) Base Excess -2.6 Performed By: #### ABG #### [place] [address] HEMOGRAM Collected: 01/16/2018 Status: F Source: [place] [id number]:[facility] REPOSITORY TYPE CODE TESTS RESULT OUT OF REFERENCE UNITS RANGE LAB WBC(LOINC) 4.23-9.07 thou/cmm WBC 8.26 LAB RBC(LOINC) 4.63-6.08 mil/cmm Low RBC 3.52 LAB HGB(LOINC) 13.7-17.5 g/dL Low Hgb 10.4 LAB HCT(LOINC) 40.1-51.0 % Low Hct 29.6 LAB MCV(LOINC) 83.2-95.6 fl MCV 84.1 LAB MCH(LOINC) 25.7-32.2 pg MCH 29.5 LAB MCHC(LOINC) 32.3-36.5 % MCHC 35.1 LAB RDW(LOINC) 11.6-14.4 % High RDW 16.9 LAB RDWSD(LOINC 36.1-45.8 fl ) High RDW SD 52.5 LAB PLT(LOINC) 141-365 thou/cmm Low alert Platelet 46 LAB MPV(LOINC) 8.7-12.0 fl MPV 11.0 Performed By: #### CBC1 #### [place] [address] PROGRESS Observed: 01/16/2018 Status: COMPLETED Source: [place] 10:59 AM CLINIC OTHER CAMPUS REPOSITORY HNO ID: [id number] Author: Troy Godoy Service: Nephrology Author Type: Physician Type: Progress Notes Filed: 01/16/2018 11:02 AM Note Text: Subjective. No acute events Levophed requirements are about the same FiO2 at 50% 01/16/18 0710 01/16/18 0800 01/16/18 0900 01/16/18 1000 BP: 112/65 99/50 109/56 Pulse: 79 79 79 Resp: Temp: 36 ?C (96.8 ?F) TempSrc: Temporal Artery SpO2: 99% 97% 98% Weight: Height: No icterus No JVD Heart - S1 S2 Lungs - b/l air entry Abdomen - soft, non distended, no organomegaly LE - +++ edema, No cyanosis No rash Intubated and sedated CMP: Glucose 88 01/16/2018 BUN 11 01/16/2018 Creatinine 1.75 01/16/2018 Sodium 137 01/16/2018 Potassium 3.9 01/16/2018 Chloride 105 01/16/2018 CO2 23 01/16/2018 Protein, Total 3.7 01/14/2018 Albumin 1.7 01/14/2018 Calcium 6.7 01/16/2018 Alkaline Phosphatase 67 01/14/2018 Bilirubin, Total 2.9 01/14/2018 AST 69 01/14/2018 ALT 13 01/14/2018 Hemoglobin (g/dL) Date Value 11/14/2017 15.0 HGB (g/dL) Date Value 01/16/2018 11.2 Hematocrit (%) Date Value 01/16/2018 32.2 WBC (thou/cmm) Date Value 01/16/2018 10.93 Platelet Count (thou/cmm) Date Value 01/16/2018 56 Assessment/ Plan 1. Acute kidney injury on chronic kidney disease stage 3. Baseline SCr is 1.36 mg/dL on 11/14/17. CKD is likely due to nephrosclerosis related to PAD. TERENCE is 2/2 ischemic ATN from hemorrhagic shock. Pt is anuric with pressor requirement -cont CVVHDF - today CXR looks wet, clinically overloaded. D/w vascular. Fluids to be stopped today once TPN starts. Will start fluid removal 50cc/hr. D/w Dr Sutton? ? 2. Shock. Likely hemorrhagic shock- massive blood loss from ruptured AAA. Currently requiring pressor. Pressor requirements stable. As per staff, BP dropped as soon as fluid is stopped. 3. Hypernatremia. Corrected ? 4. Hyperkalemia-resolved on CRRT ? 5. Ruptured AAA. s/p repair 01/12/18. Management as per vascular surgery. ? 6. Acute hypoxic respiratory failure. Ventilator dependent. Vent management as per ICU. O2 requirements are ok Will follow ? PROGRESS Observed: 01/16/2018 Status: COMPLETED Source: [place] 10:56 AM [facility] REPOSITORY O ID: [id number] Author: Hermelinda Ferrell Service: General Surgery Author Type: Resident Type: Progress Notes Filed: 01/16/2018 11:02 AM Note Text: Attestation signed by Costa Miguel at 01/16/2018 11:13 AM I saw and evaluated the patient. I reviewed the resident's note and agree. Costa Miguel MD, FACS, [facility] PROGRESS NOTE EGS Surgery Progress Note Emergency General Surgery Service Pager: For questions or concerns Mon-Tue 6a-5p please page [phone]. After 5pm and on Weekends and Holidays, please page [phone] if in ICU or [phone] if on RNF. SERVICE DATE: 01/16/2018 SERVICE TIME: 11:00 AM SUBJECTIVE: Subjective NAEON. Minimally responsive. Levo weaned. Bowel movement No Flatus No Diet DIET NPO Ambulating No Nausea No Emesis No Current Facility-Administered Medications: sodium phosphate 45 mmol in D5W 250 mL 45 mmol INTRAVENOUS ONCE NaCl 0.9% iv infusion 100 mL/hr INTRAVENOUS CONTINUOUS amiodarone 360 mg in D5W 200 mL (NEXTERONE) 0.5-1 mg/min INTRAVENOUS CONTINUOUS heparin 5,000 Units injection 5,000 Units SUBCUTANEOUS q 12 H propofol infusion (DIPRIVAN) 5-60 mcg/kg/min INTRAVENOUS CONTINUOUS ampicillin-sulbactam 3 g in NaCl 0.9% 100 mL MB+ (UNASYN) 3 g INTRAVENOUS q 6 H NaCl 0.9% 1,000 mL iv bolus 1,000 mL INTRAVENOUS PRN DIALYSIS prismaSOL BGK 4 K / 2.5 mEq Ca/Liter 5,000 mL 5,000 mL HEMODIALYSIS continuous (no dispense) prismaSOL BGK 4 K / 2.5 mEq Ca/Liter 5,000 mL 5,000 mL HEMODIALYSIS continuous (no dispense) prismaSOL BGK 4 K / 2.5 mEq Ca/Liter 5,000 mL 5,000 mL HEMODIALYSIS continuous (no dispense) dextrose 40 % 15 g 15 g ORAL PRN Or glucagon 1 mg injection (GLUCAGEN) 1 mg INTRAMUSCULAR PRN Or dextrose 50% in water 25 mL syringe 12.5 g INTRAVENOUS PRN magnesium sulfate 1 g in D5W 100 mL 1 g INTRAVENOUS PRN magnesium sulfate in water 2 g in sterile water 50 ml 2 g INTRAVENOUS PRN fentaNYL 20 mcg/mL iv infusion in NaCl 0.9% 100 mL 25-150 mcg/hr INTRAVENOUS CONTINUOUS pantoprazole 40 mg injection (PROTONIX) 40 mg INTRAVENOUS DAILY (6 AM) NORepinephrine 16 mg in D5W 250 mL (LEVOPHED) 0.6-40 mcg/min INTRAVENOUS CONTINUOUS Chlorhexidine Gluconate 0.12 % 15 mL (PERIDEX) 15 mL ORAL q 12 H OBJECTIVE: Objective PHYSICAL EXAM: VITAL SIGNS BP 109/56 Pulse 79 Temp (Src) 96.8 (Temporal Artery) Resp 18 Ht 5' 8 (1.73m) Wt 229 lb 11.5 oz (104.2kg) SpO2 98% BMI 34.94 kg/(m2). Temp (24hrs), Av.6 ?C (97.9 ?F), Min:36 ?C (96.8 ?F), Max:37 ?C (98.6 ?F) Date 01/15/18 0700 - 01/16/18 0659 01/16/18 0700 - 01/17/18 0659 Shift 3863-5849 4243-3144 9542-3836 24 Hour Total 3752-7423 8426-6858 6092-0712 24 Hour Total I N T A K E IV 3825 2387 2106 8318 991.9 991.9 IVPB 90 350 440 NS 0.9% 355 1280 1385 3020 753 753 NS .45% 851 851 LR 936 936 Calcium IVPB 92 122 214 Fentanyl Volume 217 53 59 329 29.3 29.3 Amiodarone 116 117 132 365 68.2 68.2 NORepinephrine Volume 231 238 215 684 85.5 85.5 Potassium Phosphate 326 99 425 Propofol IV 111 100 115 326 55.9 55.9 ALBUMIN (mL) 500 500 Ampicillin/Sulbactam (Unasyn) IV 28 200 228 Irrigants 10 60 70 Irrigant/Flush Amount In ( Indwelling Urinary Catheter 01/12/18 1108 Assessment Temperature Monitoring 16 Fr) 10 10 Irrigant/Flush Amount In (Drain/Tube 01/12/18 Fecal Management System) 60 60 Shift Total 3835 2447 2106 8388 991.9 991.9 O U T P U T Urine 2 8 81 91 23 23 Tube Output ( Indwelling Urinary Catheter 01/12/18 1108 Assessment Temperature Monitoring 16 Fr) 2 8 81 91 23 23 Tubes 872 927 1674 2675 750 750 Drain/Tube Output (Drain/Tube 01/12/18 0100 Hemovac Midline Anterior Abdomen) 186 462 8457 2575 450 450 Drain/Tube Output (Drain/Tube 01/12/18 Fecal Management System) 0 0 0 0 50 50 Output (GI Feed/Drain 01/12/18 0100) 100 0 0 100 250 250 Dialysis 20824 2869 7376 104 104 Dialysis Output (Ultrafiltration) 2082 2423 2869 7376 104 104 Shift Total 2865 3277 4000 59658 877 877 Weight (kg) 104.7 104.7 104.2 104.2 104.2 104.2 104.2 104.2 GENERAL: intubated. Minimally responsive. SKIN: Skin color, texture, turgor normal. No rashes or lesions. LUNGS: Unlabored breathing on O2 Therapy: Ventilator CARDIAC: rate and rhythm as above ABDOMEN: Soft, wound vac in place, open abdomen EXTREMITIES: Deferred WOUND: large wound vac, open abdomen. DATA: Diagnostic tests reviewed for today's visit: Recent Labs 01/16/18 0430 01/15/18 2205 01/15/18 1530 PH 7.397 7.333* 7.323* PCO2 35.2* 42.8 45.4 PO2 108.6* 89.1 74.8* BE -3.0 -3.6 -3.0 Recent Labs 01/16/18 0430 01/15/18 2219 01/15/18 1530 01/15/18 1000 01/15/18 0745 01/15/18 0430 01/15/18 0400 01/14/18 2210 01/14/18 1555 01/14/18 1200 01/14/18 0440 CREAT 1.75* -- 1.89* 1.93* -- -- 2.10* 2.11* 2.10* -- 2.36* 2.38* BUN 11 -- 14 14 -- -- 16 16 17 -- 19* 21* NA 137 -- 136 135* -- -- 137 138 142 -- 143 142 K 3.9 -- 4.3 4.1 -- -- 4.3 4.6 4.5 -- 4.5 4.7 CHLOR 105 -- 104 104 -- -- 105 107 111* -- 112* 110* CO2 23 -- 24 20* -- -- 21 23 22 -- 22 24 ANION 13 -- 12 15 -- -- 15 13 14 -- 14 13 GLUC 88 -- 121* 134* -- -- 112* 98 78 -- 74 85 CA 6.7* -- 6.8* 6.3* -- -- 6.4* 6.9* 6.4* -- 6.5* 6.9* P 2.5 -- -- 3.4 -- -- 1.9* -- -- -- -- 3.1 MG 2.2 -- -- -- -- -- 2.3 -- -- -- -- 1.9 ALB -- -- -- -- -- -- -- -- 1.7* -- -- -- AST -- -- -- -- -- -- -- -- 69* -- -- -- ALT -- -- -- -- -- -- -- -- 13 -- -- -- ALKPHOS -- -- -- -- -- -- -- -- 67 -- -- -- TBILI -- -- -- -- -- -- -- -- 2.9* -- -- -- WBC 10.93* 12.73* 10.70* 11.75* -- 11.17* -- 10.36* -- < > 7.65 9.62* HB 11.2* 11.6* 11.0* 12.2* -- 12.7* -- 12.4* -- < > 11.1* 12.1* HCT 32.2* 33.9* 32.4* 36.0* -- 37.2* -- 36.8* -- < > 32.5* 36.5* PLT 56* 66* 51* 55* -- 60* -- 62* -- < > 61* 59* LACT -- -- -- 1.5 -- -- 1.7 1.9 2.4* -- 1.9 2.4* INR -- -- -- 1.22 1.18 -- -- 1.23 1.31 -- 1.48 1.48 < > = values in this interval not displayed. ASSESSMENT AND PLAN: Active Hospital Problems Diagnosis Date Noted - Ruptured abdominal aortic aneurysm (AAA) ([facility]) 01/12/2018 - Encephalopathy 01/13/2018 - DIC (disseminated intravascular coagulation) ([facility]) 01/12/2018 - Hemorrhagic shock ([facility]) 01/12/2018 - Acute respiratory failure ([facility]) 01/12/2018 - Cardiac arrest ([facility]) 01/12/2018 - Hypernatremia 01/12/2018 - Hypokalemia 01/12/2018 - Hypomagnesemia 01/12/2018 - Hypophosphatemia 01/12/2018 - Hyperchloremia 01/12/2018 - AAA (abdominal aortic aneurysm, ruptured) (HCC) 01/12/2018 Overview Note: Added automatically from request for surgery [id number] Assessment/Plan 77 yo M with Ruptured AAA s/p Emergent Repair, takeback washout, repair of serosal tears x2, on 01/12, hemorrhagic shock, acute resp failure with pulm edema, TERENCE, OR 01/14 for take back + washout ? - Vent mgmt per MICU - NPO/IVF - q6 labs - Cont Abthera VAC - TERENCE -->?CVVHD per Nephro - Unasyn empirically, BCx NG, RCx NG - amiodrip for svt - continuous EEG for concern for seizure like activity. - will follow for assistance with abd closure, awaiting definitive plans from vascular Emergency General Surgery Service Pager: For questions or concerns Mon-Fri 6a-5p please page [phone]. After 5pm and on Weekends and Holidays, please page [phone] if in ICU or [phone] if on RNF. Hermelinda Ferrell MD General Surgery, PGY-2 January 16, 2018 10:57 AM PROGRESS Observed: 01/16/2018 Status: COMPLETED Source: [place] 10:24 AM [facility] OTHER CAMPUS REPOSITORY O ID: [id number] Author: Herman Sutton Service: Critical Care Author Type: Physician Type: Progress Notes Filed: 01/16/2018 10:30 AM Note Text: MICU - PROGRESS NOTE SERVICE DATE: 01/16/2018 SERVICE TIME: 10:24 AM Admission Date: 01/12/2018 AGE: [age] year old LOS: 4 days Subjective Patient remains critically ill, intubated on mechanical ventilation. Remains in circulatory shock on pressors, going to OR again today at 5pm, CRRT running, plan to start removing fluids cEEG monitoring Objective PROBLEMS: ACTIVE PROBLEM LIST Gallstone Pancreatitis Ruptured Abdominal Aortic Aneurysm (Aaa) (Hcc) Dic (Disseminated Intravascular Coagulation) (Hcc) Hemorrhagic Shock (Hcc) Acute Respiratory Failure (Hcc) Cardiac Arrest (Hcc) Hypernatremia Hypokalemia Hypomagnesemia Hypophosphatemia Hyperchloremia Encephalopathy Aaa (Abdominal Aortic Aneurysm, Ruptured) (Hcc) PAST MEDICAL HISTORY Diagnosis Date - DIC (disseminated intravascular coagulation) (HCC) 01/12/2018 PAST SURGICAL HISTORY Procedure Laterality Date - LAP CHOLECYSTECT/CHOLANGIOGRAPHY 05-28-09 - REPAIR UMBILICAL NATAN,5+Y/O,REDUC 05-28-09 Social History Marital status: Spouse name: Shelly Years of education: 11 Number of children: 4 Occupational History 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 BP 109/56 Pulse 79 Temp (Src) 96.8 (Temporal Artery) Resp 18 Ht 5' 8 (1.73m) Wt 229 lb 11.5 oz (104.2kg) SpO2 98% BMI 34.94 kg/(m2). Temp (24hrs), Av.6 ?C (97.9 ?F), Min:36 ?C (96.8 ?F), Max:37 ?C (98.6 ?F) NET FLUID BALANCE Intake/Output Summary (Last 24 hours) at 01/16/18 1024 Last data filed at 01/16/18 0900 Gross per 24 hour Intake 7994.9 ml Output 9240 ml Net -1245.1 ml MEDICATIONS Current Facility-Administered Medications: sodium phosphate 45 mmol in D5W 250 mL 45 mmol INTRAVENOUS ONCE NaCl 0.9% iv infusion 100 mL/hr INTRAVENOUS CONTINUOUS amiodarone 360 mg in D5W 200 mL (NEXTERONE) 0.5-1 mg/min INTRAVENOUS CONTINUOUS heparin 5,000 Units injection 5,000 Units SUBCUTANEOUS q 12 H propofol infusion (DIPRIVAN) 5-60 mcg/kg/min INTRAVENOUS CONTINUOUS ampicillin-sulbactam 3 g in NaCl 0.9% 100 mL MB+ (UNASYN) 3 g INTRAVENOUS q 6 H NaCl 0.9% 1,000 mL iv bolus 1,000 mL INTRAVENOUS PRN DIALYSIS prismaSOL BGK 4 K / 2.5 mEq Ca/Liter 5,000 mL 5,000 mL HEMODIALYSIS continuous (no dispense) prismaSOL BGK 4 K / 2.5 mEq Ca/Liter 5,000 mL 5,000 mL HEMODIALYSIS continuous (no dispense) prismaSOL BGK 4 K / 2.5 mEq Ca/Liter 5,000 mL 5,000 mL HEMODIALYSIS continuous (no dispense) dextrose 40 % 15 g 15 g ORAL PRN Or glucagon 1 mg injection (GLUCAGEN) 1 mg INTRAMUSCULAR PRN Or dextrose 50% in water 25 mL syringe 12.5 g INTRAVENOUS PRN magnesium sulfate 1 g in D5W 100 mL 1 g INTRAVENOUS PRN magnesium sulfate in water 2 g in sterile water 50 ml 2 g INTRAVENOUS PRN fentaNYL 20 mcg/mL iv infusion in NaCl 0.9% 100 mL 25-150 mcg/hr INTRAVENOUS CONTINUOUS pantoprazole 40 mg injection (PROTONIX) 40 mg INTRAVENOUS DAILY (6 AM) NORepinephrine 16 mg in D5W 250 mL (LEVOPHED) 0.6-40 mcg/min INTRAVENOUS CONTINUOUS Chlorhexidine Gluconate 0.12 % 15 mL (PERIDEX) 15 mL ORAL q 12 H Lines, Drains, and Airways Line Arterial Line 01/12/18 0238 Arterial Line Left Brachial 4 days Central Line Double Lumen 01/12/18 0239 Right Neck 4 days Dialysis / Apheresis Double Lumen 01/13/18 1136 Left Neck 2 days Drain Drain/Tube 01/12/18 0100 Hemovac Midline Anterior Abdomen 4 days Drain/Tube 01/12/18 Fecal Management System 4 days GI Feed/Drain 01/12/18 0100 4 days Indwelling Urinary Catheter 01/12/18 1108 Assessment Temperature Monitoring 16 Fr 3 days Airway Airway Endotracheal Tube 01/12/18 1138 3 days PHYSICAL EXAM PERFORMED: General: sedate intubated Cardiovascular: Regular rhythm Respiratory: Rhonchi bilat Abdomen: Soft and Nontender Extremities: Edema- No Neurologic: Sedated Respiratory/Nursing Documentation: O2 Therapy: Ventilator (01/16/18 1001) Invasive Ventilator Mode: Pressure Regulated Volume Control (01/16/18 08) Set Ventilator Respiratory Rate (BPM): 18 (01/16/18 08) Total Respiratory Rate (BPM): 18 (01/16/18 08) Tidal Volume Set (mL): 500 (01/16/18 08) Exhaled Tidal Volume (mL): 493 (01/16/18 0331) Minute Volume (L): 8.8 (01/16/18814) Peak Inspiratory Pressure (cm H2O): 24 (01/16/18814) PEEP/CPAP (cm H2O): 5 (01/16/18814) HEMODYNAMIC DATA: Reviewed NUTRITION: Enteral Feeds: No NPO DATA: Diagnostic tests reviewed for today's visit, films/specimens were personally reviewed by me: Most recent labs and imaging results. LABS: Recent Labs 01/16/1842901/15/18 1000 01/14/18 1555 TROPI -- -- -- -- 0.228* WBC 10.93* < > 11.75* < > -- RBC 3.85* < > 4.28* < > -- HB 11.2* < > 12.2* < > -- HCT 32.2* < > 36.0* < > -- MCV 83.6 < > 84.1 < > -- PLT 56* < > 55* < > -- GLUC 88 < > 134* < > 78 BUN 11 < > 14 < > 17 CREAT 1.75* < > 1.93* < > 2.10* NA 137 < > 135* < > 142 K 3.9 < > 4.1 < > 4.5 CHLOR 105 < > 104 < > 111* CO2 23 < > 20* < > 22 TPROT -- -- -- -- 3.7* ALB -- -- -- -- 1.7* CA 6.7* < > 6.3* < > 6.4* ALKPHOS -- -- -- -- 67 TBILI -- -- -- -- 2.9* AST -- -- -- -- 69* ALT -- -- -- -- 13 PTSEC -- -- 12.7* < > 13.4* APTT -- -- 36.0* < > 38.6* INR -- -- 1.22 < > 1.31 MG 2.2 -- -- < > -- < > = values in this interval not displayed. ABG: Recent Labs 01/16/18 04301/15/18 2205 01/15/18 1530 PH 7.397 7.333* 7.323* PO2 108.6* 89.1 74.8* PCO2 35.2* 42.8 45.4 Assessment/Plan IMPRESSION: PROBLEMS: Ruptured AAA s/p surgical repair s/p Cardiac Arrest Persistent Circulatory Shock Acute Hypoxic Respiratory Failure on mechanical ventilation Encephalopathy - Multifactorial ?on continuous EEG? TERENCE on CKD?- Suspected ATN - On CRRT Lactic Acidosis - Resolved Sinus Tachycardia Thrombocytopenia SVT - Resolved MMP ? PLANS FOR TODAY: - Continue mechanical ventilation, adjust as needed, currently on 50% FIo2, no dysynchrony - Wean pressors as tolerated, goal MAP > 65mmHg - Cultures negative, remains on unasyn empirically. - plan to start removing fluids with CRRT, will discuss with nephrology - EEG impressive for severe encephalopathy, no evidence of epileptiform activity/seizures - AAA management/post-operative care per vascular surgery, going to OR again at 5pm today - Continue w/ amiodarone gtt, monitor rhythm. No further runs of SVT - Cardiology consulted, appreciate recs - Cs dietitian and start TPN today - SCDs/PPI/ Heparin SQ per primary team ? Critical Care Documentation: The patient has the following organ/system impairment(s): Circulatory shock, Complex life-threatening medical problem(s) and Respiratory failure (Acute, with Hypoxemia) ? ? This patient has a high probability of sudden, clinically significant deterioration, which requires the highest level of physician preparedness to intervene urgently. ?I managed/supervised life or organ supporting interventions that required frequent physician assessment. ?I devoted my full attention to the direct care of this patient for the amount of time indicated below. ?Time I spent with family or surrogate(s) is included only if the patient was incapable of providing the necessary information or participating in medical decision making. ?Time devoted to teaching is not included. ? Critical Care Time devoted to this patient is 32 minutes Discussed with staff/patient/family SIGNATURE: Herman Sutton MD PATIENT NAME: Naveen Akins DATE: January 16, 2018 TIME: 10:24 AM 32 CHEST 1 VIEW Observed: 01/16/2018 Status: F Source: [facility] 6:41 AM HEALTH SYSTEM REPOSITORY Performed at [facility] APPROVED BY: Teo Gutiérrez MD EXAMINATION: CHEST RADIOGRAPH (SINGLE VIEW AP OR PA) Clinical History: Evaluate tube, line or lead position. The patient is a 77-year-old male with persistent shortness of breath and hypoxia requiring intubation. M: [id number] Comparison: Chest radiographs from the past 3 days. RESULT: Lines, tubes, and devices: Endotracheal tube, nasogastric tube, and right internal jugular venous catheter are stable and unchanged. EKG leads overlie the chest. Lungs and pleura: There is persistent right perihilar and lower lobe infiltrate and volume loss in the right middle lobe may also be involved. Bilateral pleural effusions are present right side greate r than left. No new infiltrates involve the rest of the chest. Cardiomediastinal silhouette: Normal cardiomediastinal silhouette. Other: There are osteoarthritic changes of each shoulder. No other abnormality is identified. IMPRESSION: Stable appearance to the chest with bilateral pleural effusions right side greater than left and right lower lobe and probably right middle lobe infiltrate and volume loss. PROGRESS Observed: 01/16/2018 Status: COMPLETED Source: [place] 6:12 AM [facility] REPOSITORY HNO ID: [id number] Author: Dionicio (Edenilson) Rodney Service: Vascular Surgery Author Type: Resident Type: Progress Notes Filed: 01/16/2018 9:08 AM Note Text: Attestation signed by Venkat Paniagua at 01/22/2018 6:30 PM I saw and evaluated the patient. Discussed with the resident and agree with resident's findings and plan as documented in the resident's note. I discussed the case at length with the patient's family both pre-and postoperatively expressing the ongoing need to get his abdomen closed however at this point in time he still seems way too distended to do this. We're going to do a washout and replacement of the abscess therapy device tonight with again a check of his bowel viability as long as the bowel is viable and listened to the wound VAC pack in place the plan would then be to go ahead and diurese the patient with his continuous venous hemodialysis and see if we can get several liters of fluid off to decrease the bowel swelling. Vascular Surgery Progress Note SERVICE DATE: 01/16/2018 Vascular AND Thoracic Surgery Service Pager: For questions or concerns Mon-Fri 6a-5p please page [phone]. After 5pm and on Weekends and Holidays, please page [phone] if in ICU or [phone] if on RNF. Subjective SUBJECTIVE: Weaning down on Levo, decreasing VAC output Diet: DIET NPO Objective OBJECTIVE: Vitals: Temp (24hrs), Av.7 ?C (98 ?F), Min:36.1 ?C (97 ?F), Max:37 ?C (98.6 ?F) BP 101/53 Pulse 82 Temp 36.1 ?C (97 ?F) (Temporal Artery) Resp 18 Ht 172.7 cm (5' 8) Wt 104.7 kg (230 lb 13.2 oz) SpO2 100% BMI 35.10 kg/m? O2 Therapy: Ventilator IANDO: Date 01/15/18699 - 01/16/18 0659 01/16/18 07 - 01/17/18 0659 Shift 5465-5467 4983-8205 3759-4042 24 Hour Total 9064-9116 3135-4172 3945-9568 24 Hour Total I N T A K E IV 3825 2387 2106 8318 IVPB 90 350 440 NS 0.9% 355 1280 1385 3020 NS .45% 851 851 LR 936 936 Calcium IVPB 92 122 214 Fentanyl Volume 217 53 59 329 Amiodarone 116 117 132 365 NORepinephrine Volume 231 238 215 684 Potassium Phosphate 326 99 425 Propofol IV 111 100 115 326 ALBUMIN (mL) 500 500 Ampicillin/Sulbactam (Unasyn) IV 28 200 228 Irrigants 10 60 70 Irrigant/Flush Amount In ( Indwelling Urinary Catheter 01/12/18 1108 Assessment Temperature Monitoring 16 Fr) 10 10 Irrigant/Flush Amount In (Drain/Tube 01/12/18 Fecal Management System) 60 60 Shift Total 3835 2447 2106 8388 O U T P U T Urine 2 8 81 91 Tube Output ( Indwelling Urinary Catheter 01/12/18 1108 Assessment Temperature Monitoring 16 Fr) 2 8 81 91 Tubes 684 970 2970 2675 Drain/Tube Output (Drain/Tube 01/12/18 0100 Hemovac Midline Anterior Abdomen) 235 229 1801 2575 Drain/Tube Output (Drain/Tube 01/12/18 Fecal Management System) 0 0 0 0 Output (GI Feed/Drain 01/12/18 0100) 100 0 0 100 Dialysis 20824 2629 7136 Dialysis Output (Ultrafiltration) 2082 2423 2628 7136 Shift Total 1169 6412 7138 9902 Weight (kg) 104.7 104.7 104.7 104.7 104.7 104.7 104.7 104.7 MEDICATIONS Current Facility-Administered Medications: calcium gluconate 4 g in NaCl 0.9% 250 mL 4 g INTRAVENOUS ONCE sodium phosphate 45 mmol in D5W 250 mL 45 mmol INTRAVENOUS ONCE NaCl 0.9% iv infusion 200 mL/hr INTRAVENOUS CONTINUOUS amiodarone 360 mg in D5W 200 mL (NEXTERONE) 0.5-1 mg/min INTRAVENOUS CONTINUOUS heparin 5,000 Units injection 5,000 Units SUBCUTANEOUS q 12 H propofol infusion (DIPRIVAN) 5-60 mcg/kg/min INTRAVENOUS CONTINUOUS ampicillin-sulbactam 3 g in NaCl 0.9% 100 mL MB+ (UNASYN) 3 g INTRAVENOUS q 6 H NaCl 0.9% 1,000 mL iv bolus 1,000 mL INTRAVENOUS PRN DIALYSIS prismaSOL BGK 4 K / 2.5 mEq Ca/Liter 5,000 mL 5,000 mL HEMODIALYSIS continuous (no dispense) prismaSOL BGK 4 K / 2.5 mEq Ca/Liter 5,000 mL 5,000 mL HEMODIALYSIS continuous (no dispense) prismaSOL BGK 4 K / 2.5 mEq Ca/Liter 5,000 mL 5,000 mL HEMODIALYSIS continuous (no dispense) dextrose 40 % 15 g 15 g ORAL PRN Or glucagon 1 mg injection (GLUCAGEN) 1 mg INTRAMUSCULAR PRN Or dextrose 50% in water 25 mL syringe 12.5 g INTRAVENOUS PRN magnesium sulfate 1 g in D5W 100 mL 1 g INTRAVENOUS PRN magnesium sulfate in water 2 g in sterile water 50 ml 2 g INTRAVENOUS PRN fentaNYL 20 mcg/mL iv infusion in NaCl 0.9% 100 mL 25-150 mcg/hr INTRAVENOUS CONTINUOUS pantoprazole 40 mg injection (PROTONIX) 40 mg INTRAVENOUS DAILY (6 AM) NORepinephrine 16 mg in D5W 250 mL (LEVOPHED) 0.6-40 mcg/min INTRAVENOUS CONTINUOUS Chlorhexidine Gluconate 0.12 % 15 mL (PERIDEX) 15 mL ORAL q 12 H Labs: Recent Labs 01/16/18 0430 01/15/18 2219 01/15/18 2205 01/15/18 1530 01/15/18 1000 01/15/18 0745 01/15/18 0400 01/14/18 1555 NA 137 -- -- 136 135* -- -- 137 < > 142 K 3.9 -- -- 4.3 4.1 -- -- 4.3 < > 4.5 CHLOR 105 -- -- 104 104 -- -- 105 < > 111* CO2 23 -- -- 24 20* -- -- 21 < > 22 BUN 11 -- -- 14 14 -- -- 16 < > 17 CREAT 1.75* -- -- 1.89* 1.93* -- -- 2.10* < > 2.10* GLUC -- -- -- 121* 134* -- -- 112* < > 78 ANION 13 -- -- 12 15 -- -- 15 < > 14 CA 6.7* -- -- 6.8* 6.3* -- -- 6.4* < > 6.4* MG 2.2 -- -- -- -- -- -- 2.3 -- -- P 2.5 -- -- -- 3.4 -- -- 1.9* -- -- ALB -- -- -- -- -- -- -- -- -- 1.7* AST -- -- -- -- -- -- -- -- -- 69* ALT -- -- -- -- -- -- -- -- -- 13 ALKPHOS -- -- -- -- -- -- -- -- -- 67 TBILI -- -- -- -- -- -- -- -- -- 2.9* WBC 10.93* 12.73* -- 10.70* 11.75* -- < > -- < > -- HB 11.2* 11.6* -- 11.0* 12.2* -- < > -- < > -- HCT 32.2* 33.9* -- 32.4* 36.0* -- < > -- < > -- PLT 56* 66* -- 51* 55* -- < > -- < > -- LACT -- -- -- -- 1.5 -- -- 1.7 < > 2.4* INR -- -- -- -- 1.22 1.18 -- -- < > 1.31 PH 7.397 -- 7.333* 7.323* 7.427 -- -- 7.407 < > 7.316* PCO2 35.2* -- 42.8 45.4 30.7* -- -- 33.6* < > 42.8 PO2 108.6* -- 89.1 74.8* 78.6* -- -- 79.4* < > 72.8* BE -3.0 -- -3.6 -3.0 -3.8 -- -- -3.3 < > -4.6 < > = values in this interval not displayed. Exam: GENERAL: No distress, NEURO: sedated/intubated, not following commands HEENT: normocephalic, atraumatic LUNGS: Unlabored breathing O2 Therapy: Ventilator CARDIAC: Regular rate and rhythm as above ABDOMEN: Soft, mildly D, NT, VAC intact with SS output EXTREMITIES: MAK, No deformities, +Anasarca, +Scrotal/Penile edema SKIN: Skin color, texture, turgor normal, No rashes or lesions ASSESSMENT AND PLAN: Active Hospital Problems Diagnosis Date Noted - Ruptured abdominal aortic aneurysm (AAA) ([facility]) 01/12/2018 - Encephalopathy 01/13/2018 - DIC (disseminated intravascular coagulation) ([facility]) 01/12/2018 - Hemorrhagic shock ([facility]) 01/12/2018 - Acute respiratory failure ([facility]) 01/12/2018 - Cardiac arrest ([facility]) 01/12/2018 - Hypernatremia 01/12/2018 - Hypokalemia 01/12/2018 - Hypomagnesemia 01/12/2018 - Hypophosphatemia 01/12/2018 - Hyperchloremia 01/12/2018 - AAA (abdominal aortic aneurysm, ruptured) (HCC) 01/12/2018 Overview Note: Added automatically from request for surgery [id number] 77 year old male with Ruptured AAA s/p Emergent Repair, takeback washout, repair of serosal tears x2, on 01/12, hemorrhagic shock, acute resp failure with pulm edema, TERENCE, SVT, s/p Third Look Laparotomy and washout on 01/14 ? - Vent mgmt per MICU - NPO/IVF - Consider TPN today - Wean Levo as able - Acute blood loss and dilutional anemia and thrombocytopenia - monitor, transfuse prn - q6 labs - Cont Abthera VAC - TERENCE -->?CVVHD running even per?Nephro - CXR with bilateral pulm edema/effusions - Unasyn empirically, BCx neg x2 day and RCx neg x1d - Hypophos and hypocalcemia - replacing - Amio per Cards for SVT - cont scrotal support Plan discussed with MICU Attending and patient's nurse --> ok to start TPN, ok to begin decreasing fluid requirements and even being to diurese as tolerated. Plan for Abdominal Washout and VAC change this evening in OR ? Assessment and plan discussed with attending: Dr. Paniagua SIGNATURE: Dionicio Stevens MD PATIENT NAME: Naveen Akins DATE: January 16, 2018 TIME: 6:12 AM Vascular AND Thoracic Surgery Service Pager: For questions or concerns Mon-Fri 6a-5p please page [phone]. After 5pm and on Weekends and Holidays, please page [phone] if in ICU or [phone] if on RNF. HEMOGRAM/DIFF Collected: 01/16/2018 Status: F Source: [facility] 4:30 AM HEALTH SYSTEM REPOSITORY TYPE CODE TESTS RESULT OUT OF REFERENCE UNITS RANGE LAB WBC(LOINC) 4.23-9.07 thou/cmm WBC High 10.93 LAB RBC(LOINC) 4.63-6.08 mil/cmm Low RBC 3.85 LAB HGB(LOINC) 13.7-17.5 g/dL Low Hgb 11.2 LAB HCT(LOINC) 40.1-51.0 % Low Hct 32.2 LAB MCV(LOINC) 83.2-95.6 fl MCV 83.6 LAB MCH(LOINC) 25.7-32.2 pg MCH 29.1 LAB MCHC(LOINC 32.3-36.5 % ) MCHC 34.8 LAB RDW(LOINC) 11.6-14.4 % RDW High 17.0 LAB RDWSD(LOIN 36.1-45.8 fl C) RDW SD High 52.4 LAB PLT(LOINC) 141-365 thou/cmm Low Platelet 56 LAB MPV(LOINC) 8.7-12.0 fl MPV 11.5 LAB SEG(LOINC) % Seg Neutrophil 78.7 LAB IGRE(LOINC % ) Immature Grans 1.00 LAB LYMPH(LOIN % C) Lymphocyte 6.3 LAB MNO(LOINC) % Monocyte 3.7 LAB EOSIN(LOIN % C) Eosinophil 10.1 LAB BASO(LOINC % ) Basophil 0.2 LAB SEGN(LOINC 1.78-5.38 thou/cmm ) Abs. High Neut (ANC) 8.60 LAB IGAB(LOINC 0.00-0.05 thou/cmm ) Abs High Immature Grans 0.11 LAB LYMN(LOINC 0.84-2.85 thou/cmm ) Low Abs. Lymph 0.69 LAB MONON(LOIN 0.30-0.82 thou/cmm C) Abs. Rincon 0.40 LAB EOSN(LOINC 0.04-0.54 thou/cmm ) Abs. High Eosin 1.10 LAB BASON(LOIN 0.01-0.08 thou/cmm C) Abs. Baso 0.02 Result Comment: Smear scanned; tech agrees with automated differential Performed By: #### [id number] #### [place] [address] MAGNESIUM BLOOD Collected: 01/16/2018 Status: F Source: [facility] 4:30 AM HEALTH SYSTEM REPOSITORY TYPE CODE TESTS RESULT OUT OF REFERENCE UNITS RANGE LAB MAG(LOINC) 1.6-2.6 mg/dL Magnesium Blood 2.2 Performed By: #### MAG #### [place] [address] PHOSPHORUS BLOOD Collected: 01/16/2018 Status: F Source: [facility] 4:30 AM HEALTH SYSTEM REPOSITORY TYPE CODE TESTS RESULT OUT OF REFERENCE UNITS RANGE LAB PHOS(LOINC 2.5-4.9 mg/dL ) Phosphorus Blood 2.5 Performed By: #### PHOS #### [facility] [address] [place] [id number] BASIC PANEL Collected: 01/16/2018 Status: F Source: [facility] 4:30 AM HEALTH SYSTEM REPOSITORY TYPE CODE TESTS RESULT OUT OF REFERENCE UNITS RANGE LAB NA(LOINC) 136-145 mEq/L Sodium Blood 137 LAB K(LOINC) 3.5-5.1 mEq/L Potassium Blood 3.9 LAB CL(LOINC) 98-107 mEq/L Chloride Blood 105 LAB CO2(LOINC) 21-32 mEq/L CO2 Blood 23 LAB BUN(LOINC) 7-18 mg/dL BUN Blood 11 LAB CREA(LOINC 0.67-1.17 mg/dL ) High Creatinine Blood 1.75 LAB CA(LOINC) 8.5-10.1 mg/dL Low Calcium Blood 6.7 LAB ANGAP(LOIN 8-16 C) Anion Gap 13 LAB GLU(LOINC) 70-99 mg/dL Glucose Blood 88 Performed By: #### P8 #### [facility] [address] [place] [id number] HEMOGRAM Collected: 01/15/2018 Status: F Source: [facility] 10:19 PM HEALTH SYSTEM REPOSITORY TYPE CODE TESTS RESULT OUT OF REFERENCE UNITS RANGE LAB WBC(LOINC) 4.23-9.07 thou/cmm High WBC 12.73 LAB RBC(LOINC) 4.63-6.08 mil/cmm Low RBC 3.99 LAB HGB(LOINC) 13.7-17.5 g/dL Low Hgb 11.6 LAB HCT(LOINC) 40.1-51.0 % Low Hct 33.9 LAB MCV(LOINC) 83.2-95.6 fl MCV 85.0 LAB MCH(LOINC) 25.7-32.2 pg MCH 29.1 LAB MCHC(LOINC) 32.3-36.5 % MCHC 34.2 LAB RDW(LOINC) 11.6-14.4 % High RDW 16.8 LAB RDWSD(LOINC 36.1-45.8 fl ) High RDW SD 53.0 LAB PLT(LOINC) 141-365 thou/cmm Low Platelet 66 Result Comment: Smear scanned tech agrees with platelet count LAB MPV(LOINC) 8.7-12.0 fl MPV 11.5 Performed By: #### CBC1 #### [facility] [address] [place] [id number] BLOOD GAS ARTERIAL Collected: 01/15/2018 Status: F Source: [facility] 10:05 PM HEALTH SYSTEM REPOSITORY TYPE CODE TESTS RESULT OUT OF REFERENCE UNITS RANGE LAB FIO2(LOINC % ) FIO2 60 LAB TEMPA(LOIN C) Temperature 36.2 LAB PH(LOINC) 7.350-7.450 Low pH Arterial 7.333 LAB PCO2(LOINC 36.0-46.0 mm Hg ) PCO2 Arterial 42.8 LAB PO2(LOINC) 85.0-96.0 mm Hg PO2 Arterial 89.1 LAB HCO3A(LOIN 22.0-26.0 mEq/L C) HCO3- 22.4 LAB O2%A(LOINC 95.0-98.0 % ) O2% Sat Arterial 96.7 LAB BASEX(LOIN -2.5 to 2.5 mEq/L C) Base Excess -3.6 Performed By: #### ABG #### [facility] [address] [place], [place] [address] PROGRESS Observed: 01/15/2018 Status: COMPLETED Source: [place] 7:28 PM CLINIC OTHER CAMPUS REPOSITORY O ID: [id number] Author: Chente Whittaker Service: Critical Care Author Type: Physician Type: Progress Notes Filed: 01/15/2018 10:31 PM Note Text: MICU - PROGRESS NOTE SERVICE DATE: 01/15/2018 SERVICE TIME: 7:28 PM Admission Date: 01/12/2018 Subjective Patient remains critically ill, intubated on mechanical ventilation. Remains in circulatory shock on pressors. Reviewed daytime documentation and discussed overnight events with RN. PMH: PAST MEDICAL HISTORY Diagnosis Date - DIC (disseminated intravascular coagulation) (HCC) 01/12/2018 PSH: PAST SURGICAL HISTORY Procedure Laterality Date - LAP CHOLECYSTECT/CHOLANGIOGRAPHY 05-28-09 - REPAIR UMBILICAL NATAN,5+Y/O,REDUC 05-28-09 FH: FAMILY HISTORY Problem Relation Age of Onset - Coronary Artery Disease Father - None Mother SOCIAL HISTORY: Social History Substance Use Topics - Smoking status: Never Smoker - Smokeless tobacco: Not on file - Alcohol use No OUTPATIENT MEDICATIONS: Prior to Admission Medications: Prescriptions Prior to Admission: metoprolol succinate(TOPROL XL 50 MG 24 HR TAB) Take one(1) tablet daily. Disp: Rfl: 0 01/11/2018 ASPIRIN 325 MG TAB Take one(1) tablet daily. Disp: Rfl: 0 01/11/2018 triamterene/hydrochlorothiazid(DYAZIDE 37.5 MG-25 MG CAP) take one half (1/2) tablet daily Disp: Rfl: 0 01/11/2018 LIPITOR 10 MG TAB Take one(1) tablet daily. Disp: Rfl: 0 01/11/2018 INPATIENT MEDICATIONS: Current hospital medications: NaCl 0.9% iv infusion 200 mL/hr INTRAVENOUS CONTINUOUS amiodarone 360 mg in D5W 200 mL (NEXTERONE) 0.5-1 mg/min INTRAVENOUS CONTINUOUS heparin 5,000 Units injection 5,000 Units SUBCUTANEOUS q 12 H propofol infusion (DIPRIVAN) 5-60 mcg/kg/min INTRAVENOUS CONTINUOUS ampicillin-sulbactam 3 g in NaCl 0.9% 100 mL MB+ (UNASYN) 3 g INTRAVENOUS q 6 H NaCl 0.9% 1,000 mL iv bolus 1,000 mL INTRAVENOUS PRN DIALYSIS prismaSOL BGK 4 K / 2.5 mEq Ca/Liter 5,000 mL 5,000 mL HEMODIALYSIS continuous (no dispense) prismaSOL BGK 4 K / 2.5 mEq Ca/Liter 5,000 mL 5,000 mL HEMODIALYSIS continuous (no dispense) prismaSOL BGK 4 K / 2.5 mEq Ca/Liter 5,000 mL 5,000 mL HEMODIALYSIS continuous (no dispense) dextrose 40 % 15 g 15 g ORAL PRN glucagon 1 mg injection (GLUCAGEN) 1 mg INTRAMUSCULAR PRN dextrose 50% in water 25 mL syringe 12.5 g INTRAVENOUS PRN magnesium sulfate 1 g in D5W 100 mL 1 g INTRAVENOUS PRN magnesium sulfate in water 2 g in sterile water 50 ml 2 g INTRAVENOUS PRN fentaNYL 20 mcg/mL iv infusion in NaCl 0.9% 100 mL 25-150 mcg/hr INTRAVENOUS CONTINUOUS pantoprazole 40 mg injection (PROTONIX) 40 mg INTRAVENOUS DAILY (6 AM) NORepinephrine 16 mg in D5W 250 mL (LEVOPHED) 0.6-40 mcg/min INTRAVENOUS CONTINUOUS Chlorhexidine Gluconate 0.12 % 15 mL (PERIDEX) 15 mL ORAL q 12 H ALLERGIES: ALLERGIES No Known Allergies Objective VITAL SIGNS (last 24hrs min/max): BP 99/52 Pulse 93 Temp 36.5 ?C (97.7 ?F) Resp 18 Ht 172.7 cm (5' 8) Wt 104.7 kg (230 lb 13.2 oz) SpO2 98% BMI 35.10 kg/m? Respiratory/Nursing Documentation: O2 Therapy: Ventilator (01/15/182037) Invasive Ventilator Mode: Pressure Regulated Volume Control (01/15/182037) Set Ventilator Respiratory Rate (BPM): 18 (01/15/182037) Total Respiratory Rate (BPM): 18 (01/15/182037) Tidal Volume Set (mL): 500 (01/15/182037) Exhaled Tidal Volume (mL): 481 (01/15/182037) Minute Volume (L): 9 (01/15/182037) Peak Inspiratory Pressure (cm H2O): 22 (01/15/182037) PEEP/CPAP (cm H2O): 5 (01/15/182037) PHYSICAL EXAM PERFORMED: General: intubated, sedated on MV Resp: diminished, coarse mechanical BS b/l, + ETT in place CV: tachycardic,RR, no MGR noted Abd: post-operative abdomen w/ wound vac in place, distended, but soft to compression Ext: warm to touch, no cyanosis Neuro: sedated,non-responsive to physical and verbal stimuli NET FLUID BALANCE Intake/Output Summary (Last 24 hours) at 01/15/18 2227 Last data filed at 01/15/18 2100 Gross per 24 hour Intake 8140.4 ml Output 17602 ml Net -2018.6 ml DATA: I personally reviewed all imaging and laboratory data below. LABS: Hemoglobin (g/dL) Date Value 11/14/2017 15.0 HGB (g/dL) Date Value 01/15/2018 11.0 Hematocrit (%) Date Value 01/15/2018 32.4 WBC (thou/cmm) Date Value 01/15/2018 10.70 Platelet Count (thou/cmm) Date Value 01/15/2018 51 Glucose (mg/dL) Date Value 01/15/2018 121 Potassium (mEq/L) Date Value 01/15/2018 4.3 Sodium (mEq/L) Date Value 01/15/2018 136 Chloride (mEq/L) Date Value 01/15/2018 104 CO2 (mEq/L) Date Value 01/15/2018 24 Creatinine (mg/dL) Date Value 01/15/2018 1.89 BUN (mg/dL) Date Value 01/15/2018 14 Anion Gap (no units) Date Value 01/15/2018 12 Calcium (mg/dL) Date Value 01/15/2018 6.8 IMAGING CXR 01/13: IMPRESSION: ? Recent placement of central venous catheter without apparent complication. ?Stable ?appearance of heart and lungs. CXR 01/15: IMPRESSION: ? No significant interval change running support lines or catheters as described. ? Little interval change regarding findings compatible with diffuse pulmonary edema as well as layering of moderate to large bilateral pleural effusions with associated atelectasis versus consolidation of the bilateral mid and lower lung zones. ? TTE 01/13: LVEF 55% L pleural effusion No gross valvular abnormalities EEG 01/13: There is also evidence of a severe diffuse encephalopathy. No epileptiform discharges or EEG seizures were recorded. Assessment PROBLEMS: - Ruptured AAA s/p surgical repair - s/p Cardiac Arrest - Persistent Circulatory Shock - Acute Hypoxic Respiratory Failure on mechanical ventilation - Encephalopathy - Multifactorial ? - TERENCE on CKD - Suspected ATN - On CVVH - Lactic Acidosis - Resolved - Sinus Tachycardia - Thrombocytopenia - SVT - Resolved - MMP ? PLANS FOR TODAY: - Continue mechanical ventilation, adjust as needed - Wean pressors as tolerated, goal MAP > 65mmHg - Cultures negative, remains on unasyn empirically. Continue to monitor - IVF resuscitation as needed, recommend discontinuation of fluids and give on prn basis. Personally called vascular surgery tonight about stricter fluid administration. Patient appears markedly volume overloaded and may be third spacing in abdomen. Obtain bladder pressure - EEG impressive for severe encephalopathy, no evidence of epileptiform activity/seizures - CVVH as per nephrology - AAA management/post-operative care per vascular surgery. - Continue w/ amiodarone gtt, monitor rhythm. No further runs of SVT - Cardiology consulted, appreciate recs - SCDs/PPI/ Heparin SQ per primary team ? Critical Care Documentation: The patient has the following organ/system impairment(s): Circulatory shock, Complex life-threatening medical problem(s) and Respiratory failure (Acute, with Hypoxemia) This patient has a high probability of sudden, clinically significant deterioration, which requires the highest level of physician preparedness to intervene urgently. I managed/supervised life or organ supporting interventions that required frequent physician assessment. I devoted my full attention to the direct care of this patient for the amount of time indicated below. Time I spent with family or surrogate(s) is included only if the patient was incapable of providing the necessary information or participating in medical decision making. Time devoted to teaching is not included. Critical Care Time devoted to this patient is 35 minutes SIGNATURE: Chente Whittaker MD PATIENT NAME: Naveen Akins DATE: January 15, 2018 TIME: 10:31 PM PROGRESS Observed: 01/15/2018 Status: COMPLETED Source: [place] 3:54 PM [facility] OTHER CAMPUS REPOSITORY O ID: [id number] Author: Dionicio Palacios) Rodney Service: Vascular Surgery Author Type: Resident Type: Progress Notes Filed: 01/15/2018 4:06 PM Note Text: Vascular Surgery Patient seen and evaluated for abdominal distention per Nurse's report. 01/15/18 1530 01/15/18 1545 01/15/18 1600 01/15/18 1604 BP: 141/65 Pulse: 97 97 97 (P) 98 Resp: 18 18 18 (P) 18 Temp: 37 ?C (98.6 ?F) 37 ?C (98.6 ?F) 37 ?C (98.6 ?F) TempSrc: Temporal Artery Temporal Artery SpO2: 94% 95% 95% (P) 94% Weight: Height: NAD +Anasarca Mild Sinus Tachy on Amio drip, SBP 130s with MAP 80 on 37 mcg/min of Levo (unchanged for several hrs) Vent requirement decreasing now on 60% FiO2 from 100% earlier, HOB now more elevated No acute resp distress, peak pressures 19-21 Abdomen S, Mild-Mod Distended, mildly TTP, no PS, Abthera intact with light SS output. Scrotal and penile edema, soft, reducible with palpation, no signs of ischemia Extremities warm with palpable distal pulses I am not concerned with patient's exam at this time. Appears to be stable. Abdominal distention without significant change, patient just now sitting up more with an open abdomen. Continue scrotal support. Consider urologic eval if genital edema becomes more firm or develops signs of ischemia or skin breakdown. Patient not able to be diuresed yet and is still requiring fluid resuscitation with continued third spacing and fluid losses via VAC. Rpt labs pending Will follow closely Dionicio Stevens MD PGY-4 Pager: [phone] 01/15/2018, 4:05 PM PROGRESS Observed: 01/15/2018 Status: COMPLETED Source: [place] 3:44 PM CLINIC OTHER CAMPUS REPOSITORY HNO ID: [id number] Author: Renate Handy Service: Nephrology Author Type: Physician Type: Progress Notes Filed: 01/15/2018 3:48 PM Note Text: NEPHROLOGY PROGRESS NOTE SERVICE DATE: 01/14/2018 SERVICE TIME: 10:08 AM Subjective INTERVAL HISTORY: F/u TERENCE/ATN seen on CRRT Pt on Levophed and amiodarone drip. Also with increase O2 requirement on vent today MEDICATIONS: Current hospital medications: sodium phosphate 45 mmol in D5W 250 mL 45 mmol INTRAVENOUS ONCE NaCl 0.9% iv infusion 200 mL/hr INTRAVENOUS CONTINUOUS amiodarone 360 mg in D5W 200 mL (NEXTERONE) 0.5-1 mg/min INTRAVENOUS CONTINUOUS heparin 5,000 Units injection 5,000 Units SUBCUTANEOUS q 12 H propofol infusion (DIPRIVAN) 5-60 mcg/kg/min INTRAVENOUS CONTINUOUS ampicillin-sulbactam 3 g in NaCl 0.9% 100 mL MB+ (UNASYN) 3 g INTRAVENOUS q 6 H NaCl 0.9% 1,000 mL iv bolus 1,000 mL INTRAVENOUS PRN DIALYSIS prismaSOL BGK 4 K / 2.5 mEq Ca/Liter 5,000 mL 5,000 mL HEMODIALYSIS continuous (no dispense) prismaSOL BGK 4 K / 2.5 mEq Ca/Liter 5,000 mL 5,000 mL HEMODIALYSIS continuous (no dispense) prismaSOL BGK 4 K / 2.5 mEq Ca/Liter 5,000 mL 5,000 mL HEMODIALYSIS continuous (no dispense) dextrose 40 % 15 g 15 g ORAL PRN glucagon 1 mg injection (GLUCAGEN) 1 mg INTRAMUSCULAR PRN dextrose 50% in water 25 mL syringe 12.5 g INTRAVENOUS PRN magnesium sulfate 1 g in D5W 100 mL 1 g INTRAVENOUS PRN magnesium sulfate in water 2 g in sterile water 50 ml 2 g INTRAVENOUS PRN fentaNYL 20 mcg/mL iv infusion in NaCl 0.9% 100 mL 25-150 mcg/hr INTRAVENOUS CONTINUOUS pantoprazole 40 mg injection (PROTONIX) 40 mg INTRAVENOUS DAILY (6 AM) NORepinephrine 16 mg in D5W 250 mL (LEVOPHED) 0.6-40 mcg/min INTRAVENOUS CONTINUOUS Chlorhexidine Gluconate 0.12 % 15 mL (PERIDEX) 15 mL ORAL q 12 H Vital Signs; Patient Vitals for the past 24 hrs: BP Temp Temp src Pulse Resp SpO2 01/14/18 0731 - - - 115 18 98 % 01/14/18 0700 - - - (!) 123 16 97 % 01/14/18 0600 - - - 119 18 96 % 01/14/18 0500 - - - 116 18 97 % 01/14/18 0412 - - - - 18 - 01/14/18 0400 - - - 118 18 98 % 01/14/18 0300 - - - (!) 121 18 97 % 01/14/18 0200 - - - (!) 122 18 97 % 01/14/18 0100 - - - (!) 121 17 97 % 01/14/18 0000 - - - (!) 122 14 97 % 01/13/18 2306 - - - 119 18 99 % 01/13/18 2300 - - - 119 18 99 % 01/13/18 2200 - - - 120 17 99 % 01/13/18 2100 - - - (!) 165 17 98 % 01/13/18 2012 - - - 113 18 96 % 01/13/18 2000 - - - 115 18 95 % 01/13/18 1948 - - - 116 17 96 % 01/13/18 1900 - - - 115 18 96 % 01/13/18 1856 112/58 36.2 ?C (97.2 ?F) Axillary 114 18 97 % 01/13/18 1845 - - - 117 18 97 % 01/13/18 1830 - - - 115 18 90 % 01/13/18 1815 - - - 113 18 92 % 01/13/18 1800 - - - 113 18 92 % 01/13/18 1745 - - - 111 17 93 % 01/13/18 1730 - - - 109 15 93 % 01/13/18 1715 - - - 107 18 95 % 01/13/18 1700 - - - 109 18 96 % 01/13/18 1645 - - - 111 18 95 % 01/13/18 1630 - - - 111 18 95 % 01/13/18 1615 - - - 109 18 94 % 01/13/18 1600 - - - 111 17 94 % 01/13/18 1545 - - - 107 18 94 % 01/13/18 1530 - - - 103 18 94 % 01/13/18 1515 - - - 117 18 97 % 01/13/18 1500 - - - 117 18 96 % 01/13/18 1445 - - - 114 18 95 % 01/13/18 1430 - - - 104 18 97 % 01/13/18 1425 - 36.2 ?C (97.2 ?F) Axillary 104 18 95 % 01/13/18 1415 - 36.4 ?C (97.5 ?F) Axillary 104 18 96 % 01/13/18 1400 - - - 105 18 96 % 01/13/18 1345 - - - 107 18 95 % 01/13/18 1330 - - - 108 18 94 % 01/13/18 1315 - - - 111 18 95 % 01/13/18 1300 - 36 ?C (96.8 ?F) Axillary 113 18 96 % 01/13/18 1245 - - - 111 19 97 % 01/13/18 1234 - - - 113 - 94 % 01/13/18 1230 - - - 110 18 90 % 01/13/18 1215 - - - 107 18 95 % 01/13/18 1200 - 36 ?C (96.8 ?F) Axillary 106 18 95 % 01/13/18 1145 - - - 106 18 95 % 01/13/18 1130 - - - 109 18 94 % 01/13/18 1115 - - - 109 18 94 % 01/13/18 1100 - - - 108 18 95 % 01/13/18 1045 - - - 107 18 95 % 01/13/18 1030 - - - 108 18 94 % 01/13/18 1015 - - - 102 18 96 % Current wt: Last 1 Encounter Wt Readings: Date: Wt: 01/12/2018 80.1 kg (176 lb 9.4 oz) Objective PHYSICAL EXAM: General: Sedated. On mechanical ventilator. HEENT: Atraumatic, normocephalic, Intubated. Chest: Coarse BS bilaterally. Cardiac: S1 S2 RR, no murmurs, gallops or rubs Abdomen: Wound vac in place. Abdomen is soft. Neuro: Sedated, No FND. SKIN: No rashes, good skin turgor. Extremities: No edema. ? ? Labs: Recent Labs 01/15/18 1000 01/15/18 0430 01/15/18 0400 01/14/18 2210 01/14/18 1555 01/14/18 1550 01/14/18 1200 01/14/18 0440 01/13/18 0615 01/13/18 0455 CREAT 1.93* -- 2.10* 2.11* 2.10* -- 2.36* 2.38* < > -- 2.15* BUN 14 -- 16 16 17 -- 19* 21* < > -- 24* NA 135* -- 137 138 142 -- 143 142 < > -- 152* K 4.1 -- 4.3 4.6 4.5 -- 4.5 4.7 < > -- 5.3* CHLOR 104 -- 105 107 111* -- 112* 110* < > -- 118* CO2 20* -- 21 23 22 -- 22 24 < > -- 23 ANION 15 -- 15 13 14 -- 14 13 < > -- 16 GLUC 134* -- 112* 98 78 -- 74 85 < > -- 91 CA 6.3* -- 6.4* 6.9* 6.4* -- 6.5* 6.9* < > -- 6.7* P 3.4 -- 1.9* -- -- -- -- 3.1 -- -- 4.8 MG -- -- 2.3 -- -- -- -- 1.9 -- 1.3* -- ALB -- -- -- -- 1.7* -- -- -- -- -- -- WBC 11.75* 11.17* -- 10.36* -- 10.80* 7.65 9.62* < > -- 9.99* HB 12.2* 12.7* -- 12.4* -- 12.3* 11.1* 12.1* < > -- 11.4* HCT 36.0* 37.2* -- 36.8* -- 37.2* 32.5* 36.5* < > -- 33.0* PLT 55* 60* -- 62* -- 71* 61* 59* < > -- 68* < > = values in this interval not displayed. Recent Labs 01/15/18 1530 01/15/18 1000 01/15/18 0400 01/14/18 2210 01/14/18 1555 01/14/18 1200 PH 7.323* 7.427 7.407 7.385 7.316* 7.395 PCO2 45.4 30.7* 33.6* 34.7* 42.8 34.0* PO2 74.8* 78.6* 79.4* 150.4* 72.8* 112.3* LACT -- 1.5 1.7 1.9 2.4* 1.9 Assessment/Plan 1. Acute kidney injury on chronic kidney disease stage 3. Baseline SCr is 1.36 mg/dL on 11/14/17. CKD is likely due to nephrosclerosis related to PAD. TERENCE is 2/2 ischemic ATN from hemorrhagic shock. Pt is anuric with increased pressor requirement -cont CVVHDF -run even -monitor lytles q8 hrs while on CRRT, lytes reviewed ? 2. Shock. Likely hemorrhagic shock-massive blood loss from ruptured AAA. Currently requiring pressor. Ongoing volume resuscitation. Running even with CRRT ? 3. Hypernatremia. Corrected 4. Hyperkalemia-resolved on CRRT ? 5. Ruptured AAA. s/p repair 01/12/18. Management as per vascular surgery. ? 6. Acute hypoxic respiratory failure. Ventilator dependent. Vent management as per . Worsening hypoxia today ? ? Thank you for allowing me to participate in care of Naveen Akins. Please do not hesitate to contact me at [phone] with any concerns SIGNATURE: Renate Handy DO PATIENT NAME: Naveen Akins DATE: January 14, 2018 TIME: 10:08 AM PAGER/CONTACT #: BLOOD GAS ARTERIAL Collected: 01/15/2018 Status: F Source: [facility] 3:30 PM HEALTH SYSTEM REPOSITORY TYPE CODE TESTS RESULT OUT OF REFERENCE UNITS RANGE LAB FIO2(LOINC % ) FIO2 100 LAB TEMPA(LOIN C) Temperature 37.0 LAB PH(LOINC) 7.350-7.450 Low pH Arterial 7.323 LAB PCO2(LOINC 36.0-46.0 mm Hg ) PCO2 Arterial 45.4 LAB PO2(LOINC) 85.0-96.0 mm Hg Low PO2 Arterial 74.8 LAB HCO3A(LOIN 22.0-26.0 mEq/L C) HCO3- 23.0 LAB O2%A(LOINC 95.0-98.0 % ) Low O2% Sat Arterial 94.8 LAB BASEX(LOIN -2.5 to 2.5 mEq/L C) Base Excess -3.0 Performed By: #### ABG #### [place] [address] HEMOGRAM Collected: 01/15/2018 Status: F Source: [facility] 3:30 PM HEALTH SYSTEM REPOSITORY TYPE CODE TESTS RESULT OUT OF REFERENCE UNITS RANGE LAB WBC(LOINC) 4.23-9.07 thou/cmm High WBC 10.70 LAB RBC(LOINC) 4.63-6.08 mil/cmm Low RBC 3.80 LAB HGB(LOINC) 13.7-17.5 g/dL Low Hgb 11.0 LAB HCT(LOINC) 40.1-51.0 % Low Hct 32.4 LAB MCV(LOINC) 83.2-95.6 fl MCV 85.3 LAB MCH(LOINC) 25.7-32.2 pg MCH 28.9 LAB MCHC(LOINC) 32.3-36.5 % MCHC 34.0 LAB RDW(LOINC) 11.6-14.4 % High RDW 17.0 LAB RDWSD(LOINC 36.1-45.8 fl ) High RDW SD 52.9 LAB PLT(LOINC) 141-365 thou/cmm Low Platelet 51 Result Comment: Smear scanned; tech agrees with automated differential LAB MPV(LOINC) 8.7-12.0 fl MPV 10.9 Performed By: #### CBC1 #### [facility] [address] [place] [address] BASIC PANEL Collected: 01/15/2018 Status: F Source: [facility] 3:30 PM HEALTH SYSTEM REPOSITORY TYPE CODE TESTS RESULT OUT OF REFERENCE UNITS RANGE LAB NA(LOINC) 136-145 mEq/L Sodium Blood 136 LAB K(LOINC) 3.5-5.1 mEq/L Potassium Blood 4.3 LAB CL(LOINC) 98-107 mEq/L Chloride Blood 104 LAB CO2(LOINC) 21-32 mEq/L CO2 Blood 24 LAB GLU(LOINC) 70-99 mg/dL Glucose High Blood 121 LAB BUN(LOINC) 7-18 mg/dL BUN Blood 14 LAB CREA(LOINC 0.67-1.17 mg/dL ) High Creatinine Blood 1.89 LAB CA(LOINC) 8.5-10.1 mg/dL Low Calcium Blood 6.8 LAB ANGAP(LOIN 8-16 C) Anion Gap 12 Performed By: #### P8 #### [place] [address] PROGRESS Observed: 01/15/2018 Status: COMPLETED Source: [facility] 3:29 PM [facility] OTHER [facility]AMPUS REPOSITORY O ID: [id number] Author: Paulo (M[employer] Repair Shop Supervisor) Radu Service: Critical Care Author Type: Nurse Specialist Type: Progress Notes Filed: 01/15/2018 3:33 PM Note Text: Abdomen appears more distended than approx 11AM this morning. Significant scrotal edema observed as well. Check stat CBCD. Ana Granda and Rodney notified. PHERESED PLATELETS Collected: 01/15/2018 Status: F Source: [facility] 2:49 PM HEALTH SYSTEM REPOSITORY TYPE CODE TESTS RESULT OUT OF REFERENCE UNITS RANGE LAB PPHR(LOINC) Pheresed Plts Done unit 1 Performed By: #### PPHRS #### [place] [id number] NURSING PROG Observed: 01/15/2018 Status: COMPLETED Source: [place] 2:25 PM [facility] REPOSITORY HNO ID: [id number] Author: Araceli Garcia) MAGALY Elam Service: Dialysis Author Type: Registered Nurse Type: Nursing Progress Note Filed: 01/15/2018 3:19 PM Note Text: CRRT CHANGED OUT DUE TO INCREASING PRESSURES. BLOOD RETUNED TO PT AND CRRT RESTARTED AT 3PM. M100 ALL PUMPS AT 700 ALL BAGS 4K/2.5CA. LIJ WITH BFR AT 200. REPORT TO WAI GARDNER NURSING PROG Observed: 01/15/2018 Status: COMPLETED Source: [place] 1:21 PM [facility] REPOSITORY HNO ID: [id number] Author: Iza TylerRn) Blane, MAGALY Service: Nursing Author Type: Registered Nurse Type: Nursing Progress Note Filed: 01/15/2018 1:24 PM Note Text: Demi Cee updated on patient's need for increased Fi02; page out to Dr. Stevens also PROGRESS Observed: 01/15/2018 Status: COMPLETED Source: [place] 11:47 AM [facility] REPOSITORY HNO ID: [id number] Author: Dionicio Stevens Service: Vascular Surgery Author Type: Resident Type: Progress Notes Filed: 01/15/2018 11:49 AM Note Text: Vascular Surgery CVP down to 4 Increased Levo requirments Plan: - 1L Bolus LR - 25g 5% Albumin - CVVHD running positive now - transfuse a 5-pk platelets - NaPhos IV 45mEq - Calc Gluc IV 4g - recheck labs Dionicio Stevens MD PGY-4 Pager: [phone] 01/15/2018, 11:48 AM NURSING PROG Observed: 01/15/2018 Status: COMPLETED Source: [place] 11:43 AM [facility] REPOSITORY HNO ID: [id number] Author: Iza Garcia) Blane, MAGALY Service: Nursing Author Type: Registered Nurse Type: Nursing Progress Note Filed: 01/15/2018 11:44 AM Note Text: Dr. Stevens updated on patient's libiale blood pressure and the need to increase levophed drip. New orders received, will continue to monitor CONSULT PROG Observed: 01/15/2018 Status: COMPLETED Source: [place] 10:38 AM [facility] OTHER [facility] REPOSITORY HNO ID: [id number] Author: Gilbert Tucker Service: Cardiovascular Medicine Author Type: Physician Type: Consult Progress Note Filed: 01/15/2018 10:40 AM Note Text: PROGRESS NOTE CARDIOLOGY SERVICE SERVICE DATE: 01/15/2018 SERVICE TIME: 10:39 AM Subjective INTERIM HISTORY: on vent Objective PHYSICAL EXAM: Body mass index is 35.1 kg/m?. O2 Therapy: Ventilator No Data Recorded Patient Vitals for the past 24 hrs: BP Temp Temp src Pulse Resp SpO2 Weight 01/15/18 1000 94/65 - - 98 18 97 % - 01/15/18 0900 100/57 - - 102 18 97 % - 01/15/18 0800 95/65 - - 108 19 96 % - 01/15/18 0744 - - - - - - 104.7 kg (230 lb 13.2 oz) 01/15/18 0740 - - - 107 18 99 % - 01/15/18 0700 91/56 - - 101 18 99 % - 01/15/18 0630 94/58 - - 100 18 99 % - 01/15/18 0615 (!) 85/45 - - 96 18 99 % - 01/15/18 0600 88/56 - - 107 18 99 % - 01/15/18 0530 95/60 - - 99 18 99 % - 01/15/18 0500 95/61 - - 99 18 98 % - 01/15/18 0430 110/63 - - 98 16 98 % - 01/15/18 0400 104/64 - - 101 18 98 % - 01/15/18 0330 106/62 - - 103 18 99 % - 01/15/18 0304 - - - 103 - - - 01/15/18 0300 102/65 - - 103 18 99 % - 01/15/18 0230 99/66 - - 112 18 99 % - 01/15/18 0200 101/63 - - - - - - 01/15/18 0130 - - - 102 18 100 % - 01/15/18 0100 91/63 - - - - - - 01/15/18 0057 89/64 - - 102 18 99 % - 01/15/18 0000 105/67 36.8 ?C (98.2 ?F) Axillary 103 18 99 % - 01/14/18 2313 - - - 100 18 100 % - 01/14/18 2300 113/63 - - 100 15 100 % - 01/14/18 2200 97/63 - - 101 18 100 % - 01/14/18 2100 104/67 - - 101 18 100 % - 01/14/18 2000 117/71 - - 103 18 100 % - 01/14/18 1900 116/61 - - 102 19 99 % - 01/14/18 1830 127/79 - - 105 18 99 % - 01/14/18 1815 124/69 - - 108 18 98 % - 01/14/18 1800 119/65 36.5 ?C (97.7 ?F) Axillary 104 18 100 % - 01/14/18 1745 102/55 - - 106 18 98 % - 01/14/18 1730 101/54 - - 108 18 98 % - 01/14/18 1715 107/51 - - 109 18 97 % - 01/14/18 1700 110/56 - - 110 18 97 % - 01/14/18 1645 112/53 - - 112 18 97 % - 01/14/18 1630 118/66 - - 113 18 97 % - 01/14/18 1615 128/52 - - 115 17 96 % - 01/14/18 1600 125/65 - - 115 15 94 % - 01/14/18 1545 129/62 - - 114 11 95 % - 01/14/18 1540 - - - 115 10 95 % - 01/14/18 1530 (!) 124/44 - - (!) 135 11 96 % - 01/14/18 1515 103/51 - - 110 18 98 % - 01/14/18 1500 108/50 - - 114 15 96 % - 01/14/18 1445 116/59 - - (!) 149 18 98 % - 01/14/18 1430 102/51 - - (!) 176 18 100 % - 01/14/18 1415 (!) 94/46 - - (!) 133 18 100 % - 01/14/18 1400 114/57 - - 109 18 100 % - 01/14/18 1345 130/65 - - 107 18 100 % - 01/14/18 1330 115/61 - - 106 18 100 % - 01/14/18 1315 113/62 - - 105 18 100 % - 01/14/18 1300 144/66 36.4 ?C (97.5 ?F) Axillary 101 18 100 % - 01/14/18 1245 107/60 - - 102 18 99 % - 01/14/18 1215 103/64 - - 102 18 99 % - 01/14/18 1200 104/61 - - 103 18 98 % - 01/14/18 1145 104/62 - - 104 18 96 % - 01/14/18 1137 - - - 105 18 98 % - 01/14/18 1130 144/65 36.8 ?C (98.2 ?F) Axillary 102 18 99 % - 01/14/18 1115 106/64 - - 101 18 100 % - 01/14/18 1100 118/68 - - 100 18 100 % - 01/14/18 1045 124/61 36.5 ?C (97.7 ?F) Axillary 101 18 100 % - On vent Tele sinus tach MEDICATIONS: Current hospital medications: sodium phosphate 30 mmol in D5W 250 mL 30 mmol INTRAVENOUS ONCE amiodarone 360 mg in D5W 200 mL (NEXTERONE) 0.5-1 mg/min INTRAVENOUS CONTINUOUS heparin 5,000 Units injection 5,000 Units SUBCUTANEOUS q 12 H propofol infusion (DIPRIVAN) 5-60 mcg/kg/min INTRAVENOUS CONTINUOUS ampicillin-sulbactam 3 g in NaCl 0.9% 100 mL MB+ (UNASYN) 3 g INTRAVENOUS q 6 H NaCl 0.9% 1,000 mL iv bolus 1,000 mL INTRAVENOUS PRN DIALYSIS prismaSOL BGK 4 K / 2.5 mEq Ca/Liter 5,000 mL 5,000 mL HEMODIALYSIS continuous (no dispense) prismaSOL BGK 4 K / 2.5 mEq Ca/Liter 5,000 mL 5,000 mL HEMODIALYSIS continuous (no dispense) prismaSOL BGK 4 K / 2.5 mEq Ca/Liter 5,000 mL 5,000 mL HEMODIALYSIS continuous (no dispense) NaCl 0.45% iv infusion 200 mL/hr INTRAVENOUS CONTINUOUS dextrose 40 % 15 g 15 g ORAL PRN glucagon 1 mg injection (GLUCAGEN) 1 mg INTRAMUSCULAR PRN dextrose 50% in water 25 mL syringe 12.5 g INTRAVENOUS PRN magnesium sulfate 1 g in D5W 100 mL 1 g INTRAVENOUS PRN magnesium sulfate in water 2 g in sterile water 50 ml 2 g INTRAVENOUS PRN fentaNYL 20 mcg/mL iv infusion in NaCl 0.9% 100 mL 25-150 mcg/hr INTRAVENOUS CONTINUOUS pantoprazole 40 mg injection (PROTONIX) 40 mg INTRAVENOUS DAILY (6 AM) NORepinephrine 16 mg in D5W 250 mL (LEVOPHED) 0.6-40 mcg/min INTRAVENOUS CONTINUOUS Chlorhexidine Gluconate 0.12 % 15 mL (PERIDEX) 15 mL ORAL q 12 H DATA: Past 72 Hour Labs: Recent Labs 01/15/18 0745 01/15/18 0430 01/15/18 0400 01/14/18 2210 01/14/18 1555 TROPI -- -- -- -- 0.228* WBC -- 11.17* -- 10.36* -- RBC -- 4.44* -- 4.35* -- HB -- 12.7* -- 12.4* -- HCT -- 37.2* -- 36.8* -- MCV -- 83.8 -- 84.6 -- MCH -- 28.6 -- 28.5 -- MCHC -- 34.1 -- 33.7 -- PLT -- 60* -- 62* -- MPV -- 10.9 -- 10.9 -- GLUC -- -- 112* 98 78 BUN -- -- 16 16 17 CREAT -- -- 2.10* 2.11* 2.10* NA -- -- 137 138 142 K -- -- 4.3 4.6 4.5 CHLOR -- -- 105 107 111* CO2 -- -- 21 23 22 TPROT -- -- -- -- 3.7* ALB -- -- -- -- 1.7* CA -- -- 6.4* 6.9* 6.4* ALKPHOS -- -- -- -- 67 TBILI -- -- -- -- 2.9* AST -- -- -- -- 69* ALT -- -- -- -- 13 PTSEC 12.2* -- -- 13.1* 13.4* APTT -- -- -- 37.6* 38.6* INR 1.18 -- -- 1.23 1.31 MG -- -- 2.3 -- -- Last Lab Drawn: No results found for this basename: TSH,PROBNP,TG,HDL,LDL,CHOL Assessment/Plan 1.SVT in pt with AAA rupture, s/p arrest on NURSE'S ASSISTANT, pressors; Echo EF 55%-SVT related to meds, [place] -On IV Amio-no recurrence thus far -now sinus tach -no recommendations ? SIGNATURE: Gilbert Tucker MD PATIENT NAME: Naveen Akins DATE: January 15, 2018 TIME: 10:39 AM PAGER/CONTACT #: [phone] BLOOD GAS ARTERIAL Collected: 01/15/2018 Status: F Source: [facility] 10:00 HEALTH SYSTEM REPOSITORY TYPE CODE TESTS RESULT OUT OF REFERENCE UNITS RANGE LAB FIO2(LOINC % ) FIO2 30 LAB TEMPA(LOIN C) Temperature 35.9 LAB PH(LOINC) 7.350-7.450 pH Arterial 7.427 LAB PCO2(LOINC 36.0-46.0 mm Hg ) Low PCO2 Arterial 30.7 LAB PO2(LOINC) 85.0-96.0 mm Hg Low PO2 Arterial 78.6 LAB HCO3A(LOIN 22.0-26.0 mEq/L C) Low HCO3- 20.0 LAB O2%A(LOINC 95.0-98.0 % ) O2% Sat Arterial 96.9 LAB BASEX(LOIN -2.5 to 2.5 mEq/L C) Base Excess -3.8 Performed By: #### ABG #### [place] [address] LACTIC ACID Collected: 01/15/2018 Status: F Source: [facility] 10:00 HEALTH SYSTEM REPOSITORY TYPE CODE TESTS RESULT OUT OF REFERENCE UNITS RANGE LAB LAC(LOINC) 0.4-2.0 mEq/L Lactic Acid 1.5 Performed By: #### LAC #### [place] [address] BASIC PANEL Collected: 01/15/2018 Status: F Source: [facility] 10:00 HEALTH SYSTEM REPOSITORY TYPE CODE TESTS RESULT OUT OF REFERENCE UNITS RANGE LAB NA(LOINC) 136-145 mEq/L Low Sodium Blood 135 LAB K(LOINC) 3.5-5.1 mEq/L Potassium Blood 4.1 LAB CL(LOINC) 98-107 mEq/L Chloride Blood 104 LAB CO2(LOINC) 21-32 mEq/L Low CO2 Blood 20 LAB GLU(LOINC) 70-99 mg/dL Glucose High Blood 134 LAB BUN(LOINC) 7-18 mg/dL BUN Blood 14 LAB CREA(LOINC 0.67-1.17 mg/dL ) High Creatinine Blood 1.93 LAB CA(LOINC) 8.5-10.1 mg/dL Low Calcium Blood 6.3 LAB ANGAP(LOIN 8-16 C) Anion Gap 15 Performed By: #### P8 #### [facility] [address] [place] [address] PHOSPHORUS BLOOD Collected: 01/15/2018 Status: F Source: [facility] 10:00 AM HEALTH SYSTEM REPOSITORY TYPE CODE TESTS RESULT OUT OF REFERENCE UNITS RANGE LAB PHOS(LOINC 2.5-4.9 mg/dL ) Phosphorus Blood 3.4 Performed By: #### PHOS #### [place] [address] HEMOGRAM Collected: 01/15/2018 Status: F Source: [facility] 10:00 HEALTH SYSTEM REPOSITORY TYPE CODE TESTS RESULT OUT OF REFERENCE UNITS RANGE LAB WBC(LOINC) 4.23-9.07 thou/cmm WBC High 11.75 LAB RBC(LOINC) 4.63-6.08 mil/cmm Low RBC 4.28 LAB HGB(LOINC) 13.7-17.5 g/dL Low Hgb 12.2 LAB HCT(LOINC) 40.1-51.0 % Low Hct 36.0 LAB MCV(LOINC) 83.2-95.6 fl MCV 84.1 LAB MCH(LOINC) 25.7-32.2 pg MCH 28.5 LAB MCHC(LOINC 32.3-36.5 % ) MCHC 33.9 LAB RDW(LOINC) 11.6-14.4 % RDW High 17.1 LAB RDWSD(LOIN 36.1-45.8 fl C) RDW High SD 52.6 LAB PLT(LOINC) 141-365 thou/cmm Low Platelet 55 LAB MPV(LOINC) 8.7-12.0 fl MPV 11.4 LAB NRBCR(LOIN 0.0-0.2 % C) Nucleated RBC % 0.2 LAB NRBCA(LOIN 0.00-0.01 thou/cmm C) High Nucleated RBC 0.02 Absolute Performed By: #### CBC1 #### [facility] [address] [place] [address] FIBRINOGEN Collected: 01/15/2018 Status: F Source: [facility] 10:00 HEALTH SYSTEM REPOSITORY TYPE CODE TESTS RESULT OUT OF REFERENCE UNITS RANGE LAB FIB(LOINC) 180-430 mg/dl High Fibrinogen 498 Performed By: #### FIB #### [place] [address] PROTIME Collected: 01/15/2018 Status: F Source: [facility] 10:00 HEALTH SYSTEM REPOSITORY TYPE CODE TESTS RESULT OUT OF REFERENCE UNITS RANGE LAB PTI(LOINC) 9.3-11.9 sec Prothrombin High Time 12.7 LAB INR(LOINC) INR 1.22 Result Comment: Standard Therapy 2.0-3.0 High Dose 2.5-3.5 Performed By: #### PT #### [facility] [address] [place] [address] ACTIVATED PTT Collected: 01/15/2018 Status: F Source: [facility] 10:00 HEALTH SYSTEM REPOSITORY TYPE CODE TESTS RESULT OUT OF REFERENCE UNITS RANGE LAB APTT(LOINC 22.0-34.0 sec ) High Activated PTT 36.0 Performed By: #### APTT #### [place] [address] CONSULT PROG Observed: 01/15/2018 Status: COMPLETED Source: [facility] 9:44 AM CLINIC OTHER CAMPUS REPOSITORY O ID: [id number] Author: Elder Granda Service: Critical Care Author Type: Physician Type: Consult Progress Note Filed: 01/15/2018 10:06 AM Note Text: ICU - PROGRESS NOTE SERVICE DATE: 01/15/2018 SERVICE TIME: 9:44 AM Admission Date: 01/12/2018 AGE: [id number] year old LOS: 3 days Subjective REASON FOR ICU ADMISSION: AAA rupture s/p repair ROS not possible 2/2 to mental status. Per RN patient is on 35 of levo and still has drainage in the wound vac. Objective VITAL SIGNS (last 24hrs min/max): Temp Av.6 ?C (97.9 ?F) Min: 36.4 ?C (97.5 ?F) Max: 36.8 ?C (98.2 ?F) Pulse Av.6 Min: 96 Max: 176 Arterial BP 1 Min: 83/48 Max: 145/65 Cuff BP Min: 85/45 Max: 144/66 Pain Score: 0/10 Vital signs reviewed. BP 100/57 Pulse 102 Temp (Src) 98.2 (Axillary) Resp 18 Ht 5' 8 (1.73m) Wt 230 lb 13.2 oz (104.7kg) SpO2 97% BMI 35.10 kg/(m2). Temp (24hrs), Av.6 ?C (97.9 ?F), Min:36.4 ?C (97.5 ?F), Max:36.8 ?C (98.2 ?F) NET FLUID BALANCE Intake/Output Summary (Last 24 hours) at 01/15/18 0944 Last data filed at 01/15/18 0900 Gross per 24 hour Intake 7017.4 ml Output 8285 ml Net -1267.6 ml MEDICATIONS Current Facility-Administered Medications: sodium phosphate 30 mmol in D5W 250 mL 30 mmol INTRAVENOUS ONCE amiodarone 360 mg in D5W 200 mL (NEXTERONE) 0.5-1 mg/min INTRAVENOUS CONTINUOUS heparin 5,000 Units injection 5,000 Units SUBCUTANEOUS q 12 H propofol infusion (DIPRIVAN) 5-60 mcg/kg/min INTRAVENOUS CONTINUOUS ampicillin-sulbactam 3 g in NaCl 0.9% 100 mL MB+ (UNASYN) 3 g INTRAVENOUS q 6 H NaCl 0.9% 1,000 mL iv bolus 1,000 mL INTRAVENOUS PRN DIALYSIS prismaSOL BGK 4 K / 2.5 mEq Ca/Liter 5,000 mL 5,000 mL HEMODIALYSIS continuous (no dispense) prismaSOL BGK 4 K / 2.5 mEq Ca/Liter 5,000 mL 5,000 mL HEMODIALYSIS continuous (no dispense) prismaSOL BGK 4 K / 2.5 mEq Ca/Liter 5,000 mL 5,000 mL HEMODIALYSIS continuous (no dispense) NaCl 0.45% iv infusion 200 mL/hr INTRAVENOUS CONTINUOUS dextrose 40 % 15 g 15 g ORAL PRN Or glucagon 1 mg injection (GLUCAGEN) 1 mg INTRAMUSCULAR PRN Or dextrose 50% in water 25 mL syringe 12.5 g INTRAVENOUS PRN magnesium sulfate 1 g in D5W 100 mL 1 g INTRAVENOUS PRN magnesium sulfate in water 2 g in sterile water 50 ml 2 g INTRAVENOUS PRN fentaNYL 20 mcg/mL iv infusion in NaCl 0.9% 100 mL 25-150 mcg/hr INTRAVENOUS CONTINUOUS pantoprazole 40 mg injection (PROTONIX) 40 mg INTRAVENOUS DAILY (6 AM) NORepinephrine 16 mg in D5W 250 mL (LEVOPHED) 0.6-40 mcg/min INTRAVENOUS CONTINUOUS Chlorhexidine Gluconate 0.12 % 15 mL (PERIDEX) 15 mL ORAL q 12 H Lines, Drains, and Airways Line Arterial Line 01/12/18 0238 Arterial Line Left Brachial 3 days Central Line Double Lumen 01/12/18 0239 Right Neck 3 days Dialysis / Apheresis Double Lumen 01/13/18 1136 Left Neck 1 day Drain Drain/Tube 01/12/18 0100 Hemovac Midline Anterior Abdomen 3 days Drain/Tube 01/12/18 Fecal Management System 3 days GI Feed/Drain 01/12/18 0100 3 days Indwelling Urinary Catheter 01/12/18 1108 Assessment Temperature Monitoring 16 Fr 2 days Airway Airway Endotracheal Tube 01/12/18 1138 2 days PHYSICAL EXAM PERFORMED: Constitutional: Lying in bed, appears comfortable Cardiovascular: Regular rhythm Respiratory: Breath sounds equal b/l %FIO2 Min: 30 Max: 70 Abdomen: Open with foam dressing and wound vac in place Extremities: Edema- Yes, Peripheral pulses present Neurologic: Sedated Respiratory/Nursing Documentation: O2 Therapy: Ventilator (01/15/18 0800) Invasive Ventilator Mode: Pressure Regulated Volume Control (01/15/18 07) Set Ventilator Respiratory Rate (BPM): 18 (01/15/18 0740) Total Respiratory Rate (BPM): 18 (01/15/1840) Tidal Volume Set (mL): 500 (01/15/1840) Exhaled Tidal Volume (mL): 502 (01/15/1840) Minute Volume (L): 9.1 (01/15/1840) Peak Inspiratory Pressure (cm H2O): 22 (01/15/18 0740) PEEP/CPAP (cm H2O): 5 (01/15/18739) HEMODYNAMIC DATA: Reviewed NUTRITION: Enteral Feeds: No NPO DATA: Diagnostic tests reviewed for today's visit, films/specimens were personally reviewed by me: Most recent labs and imaging results. LABS: Recent Labs 01/15/18 0745 01/15/18 0430 01/15/1839901/14/18220901/14/18 1555 TROPI -- -- -- -- 0.228* WBC -- 11.17* -- 10.36* -- RBC -- 4.44* -- 4.35* -- HB -- 12.7* -- 12.4* -- HCT -- 37.2* -- 36.8* -- MCV -- 83.8 -- 84.6 -- PLT -- 60* -- 62* -- GLUC -- -- 112* 98 78 BUN -- -- 16 16 17 CREAT -- -- 2.10* 2.11* 2.10* NA -- -- 137 138 142 K -- -- 4.3 4.6 4.5 CHLOR -- -- 105 107 111* CO2 -- -- 21 23 22 TPROT -- -- -- -- 3.7* ALB -- -- -- -- 1.7* CA -- -- 6.4* 6.9* 6.4* ALKPHOS -- -- -- -- 67 TBILI -- -- -- -- 2.9* AST -- -- -- -- 69* ALT -- -- -- -- 13 PTSEC 12.2* -- -- 13.1* 13.4* APTT -- -- -- 37.6* 38.6* INR 1.18 -- -- 1.23 1.31 MG -- -- 2.3 -- -- ABG: Recent Labs 01/15/1839901/14/18220901/14/18 1555 PH 7.407 7.385 7.316* PO2 79.4* 150.4* 72.8* PCO2 33.6* 34.7* 42.8 Assessment/Plan IMPRESSION: Critical Care Documentation: The patient has the following organ/system impairment(s): Circulatory shock, Complex life-threatening medical problem(s) and Respiratory failure (Acute, with Hypoxemia) 77 year old male with PMH of AAA who was transferred to [facility] in shock 2/2 ruptured AAA c/b cardiac arrest s/p CPR and ROSC and s/p abdominal washout, repacking and repair of serosal tears x2. Hemorrhagic shock, currently on?pressors. Serosanguinous output in wound vac. Received multiple units of pRBC, platelets, cryo, FFP as part of massive transfusion protocol. IV fluids maintenance and bolus ongoing. Acute hypoxic respiratory failure 2/2 pulmonary edema in the setting of massive transfusion. Intubated and mechanically ventilated. Tracheal aspirate shows no growth. Fio2 titrated down. SVT s/p adenosine and amiodarone Acute blood loss anemia, Hb stable overnight ATN on CVVH PLAN: Continue mechanical ventilation, hemodynamics and open abdomen preclude SAT/SBT Continue IV fluids, pressors to a MAP goal of 65. Target net even. CVVH per nephro D/c Unasyn, Cx negative Wound Vac and AAA recs per vascular ICU PPx This patient has a high probability of sudden, clinically significant deterioration, which requires the highest level of physician preparedness to intervene urgently. I managed/supervised life or organ supporting interventions that required frequent physician assessment. I devoted my full attention to the direct care of this patient for the amount of time indicated below. Time I spent with family or surrogate(s) is included only if the patient was incapable of providing the necessary information or participating in medical decision making. Time devoted to teaching is not included. Discussed with staff Time spent providing critical care services: 35 minutes excluding procedures. SIGNATURE: Elder Granda MD PATIENT NAME: Naveen Akins DATE: January 15, 2018 TIME: 9:44 AM PROGRESS Observed: 01/15/2018 Status: COMPLETED Source: [place] 9:18 AM [facility] OTHER CAMPUS REPOSITORY [facility] ID: [id number] Author: Kannan Felder Service: General Surgery Author Type: Resident Type: Progress Notes Filed: 01/15/2018 9:22 AM Note Text: Attestation signed by Mark Woods at 01/16/2018 11:25 AM Care per vasc gen surg available to asisst with closure if needed Mark Woods MD PROGRESS NOTE EGS Surgery Progress Note Emergency General Surgery Service Pager: For questions or concerns Mon-Tue 6a-5p please page [phone]. After 5pm and on Weekends and Holidays, please page [phone] if in ICU or [phone] if on RNF. SERVICE DATE: 01/15/2018 SERVICE TIME: 9:18 AM SUBJECTIVE: Subjective Subjective: This is a 77 year old male Pt on amio drip, norepi drip, and propofol this am. Minimally responsive. Wound vac in place. S/p take back to or 01/14/18 Bowel movement No Flatus No Diet DIET NPO Ambulating No Nausea No Emesis No Current Facility-Administered Medications: sodium phosphate 30 mmol in D5W 250 mL 30 mmol INTRAVENOUS ONCE amiodarone 360 mg in D5W 200 mL (NEXTERONE) 0.5-1 mg/min INTRAVENOUS CONTINUOUS heparin 5,000 Units injection 5,000 Units SUBCUTANEOUS q 12 H propofol infusion (DIPRIVAN) 5-60 mcg/kg/min INTRAVENOUS CONTINUOUS ampicillin-sulbactam 3 g in NaCl 0.9% 100 mL MB+ (UNASYN) 3 g INTRAVENOUS q 6 H NaCl 0.9% 1,000 mL iv bolus 1,000 mL INTRAVENOUS PRN DIALYSIS prismaSOL BGK 4 K / 2.5 mEq Ca/Liter 5,000 mL 5,000 mL HEMODIALYSIS continuous (no dispense) prismaSOL BGK 4 K / 2.5 mEq Ca/Liter 5,000 mL 5,000 mL HEMODIALYSIS continuous (no dispense) prismaSOL BGK 4 K / 2.5 mEq Ca/Liter 5,000 mL 5,000 mL HEMODIALYSIS continuous (no dispense) NaCl 0.45% iv infusion 200 mL/hr INTRAVENOUS CONTINUOUS dextrose 40 % 15 g 15 g ORAL PRN Or glucagon 1 mg injection (GLUCAGEN) 1 mg INTRAMUSCULAR PRN Or dextrose 50% in water 25 mL syringe 12.5 g INTRAVENOUS PRN magnesium sulfate 1 g in D5W 100 mL 1 g INTRAVENOUS PRN magnesium sulfate in water 2 g in sterile water 50 ml 2 g INTRAVENOUS PRN fentaNYL 20 mcg/mL iv infusion in NaCl 0.9% 100 mL 25-150 mcg/hr INTRAVENOUS CONTINUOUS pantoprazole 40 mg injection (PROTONIX) 40 mg INTRAVENOUS DAILY (6 AM) NORepinephrine 16 mg in D5W 250 mL (LEVOPHED) 0.6-40 mcg/min INTRAVENOUS CONTINUOUS Chlorhexidine Gluconate 0.12 % 15 mL (PERIDEX) 15 mL ORAL q 12 H OBJECTIVE: Objective PHYSICAL EXAM: VITAL SIGNS BP 100/57 Pulse 102 Temp (Src) 98.2 (Axillary) Resp 18 Ht 5' 8 (1.73m) Wt 230 lb 13.2 oz (104.7kg) SpO2 97% BMI 35.10 kg/(m2). Temp (24hrs), Av.2 ?C (97.2 ?F), Min:34.5 ?C (94.1 ?F), Max:36.8 ?C (98.2 ?F) Date 01/14/18 07 - 01/15/18 0659 01/15/18 07 - 01/16/18 0659 Shift 8301-4510 2748-6681 2124-7934 24 Hour Total 2455-2174 0346-8362 2740-9568 24 Hour Total I N T A K E IV 3000 4013 2154.4 9167.4 850 850 NS 0.9% 3000 3000 NS .45% 1850 1000 2850 410 410 Magnesium IVPB 100 100 LR 1000 1000 Fentanyl Volume 122.5 60 182.5 184 184 Amiodarone 267 134.9 401.9 34 34 NORepinephrine Volume 313.5 549.2 862.7 67 67 Potassium Phosphate 115 115 Propofol IV 160 160.3 320.3 40 40 MAGNESIUM SULFATE 50 50 Ampicillin/Sulbactam (Unasyn) IV 200 200 400 Shift Total 3000 4013 2154.4 9167.4 850 850 O U T P U T Urine 80 70 9 159 2 2 Tube Output ( Indwelling Urinary Catheter 01/12/18 1108 Assessment Temperature Monitoring 16 Fr) 80 70 9 159 2 2 Drains 1000 1000 2000 Negative Pressure: Output (mL) (Negative Pressure Wound Therapy 01/12/18 0749 Abdomen) 1000 1000 2000 Tubes 3440 505 9992 3955 75 75 Drain/Tube Output (Drain/Tube 01/12/18 0100 Hemovac Midline Anterior Abdomen) 500 1125 1625 75 75 Drain/Tube Output (Drain/Tube 01/12/18 Fecal Management System) 250 30 0 280 0 0 Output (GI Feed/Drain 01/12/18 0100) 1100 218 470 5212 0 0 Dialysis 0 924 2623 3547 477 477 Dialysis Output (Ultrafiltration) 0 924 2623 3547 477 477 Shift Total 2430 2874 4357 9661 554 554 Weight (kg) 80.1 80.1 80.1 80.1 104.7 104.7 104.7 104.7 GENERAL: intubated. Minimally responsive. SKIN: Skin color, texture, turgor normal. No rashes or lesions. LUNGS: Unlabored breathing on O2 Therapy: Ventilator on sating at SpO2: 97 % CARDIAC: rate and rhythm as above, ABDOMEN: Soft, No masses, hepatosplenomegaly, No lymphadenopathy and wound vac in place. Open abdomen EXTREMITIES: Deferred WOUND: large wound vac, open abdomen. DATA: Diagnostic tests reviewed for today's visit: Recent Labs 01/15/18 0400 01/14/18 2210 01/14/18 1555 PH 7.407 7.385 7.316* PCO2 33.6* 34.7* 42.8 PO2 79.4* 150.4* 72.8* BE -3.3 -4.0 -4.6 Recent Labs 01/15/18 0745 01/15/18 0430 01/15/18 0400 01/14/18 2210 01/14/18 1555 01/14/18 1550 01/14/18 1200 01/14/18 0440 01/13/18 0615 01/13/18 0455 01/12/18 1140 CREAT -- -- 2.10* 2.11* 2.10* -- 2.36* 2.38* < > -- 2.15* < > 1.18* BUN -- -- 16 16 17 -- 19* 21* < > -- 24* < > 17 NA -- -- 137 138 142 -- 143 142 < > -- 152* < > 156* K -- -- 4.3 4.6 4.5 -- 4.5 4.7 < > -- 5.3* < > 2.9* CHLOR -- -- 105 107 111* -- 112* 110* < > -- 118* < > 121* CO2 -- -- 21 23 22 -- 22 24 < > -- 23 < > 26 ANION -- -- 15 13 14 -- 14 13 < > -- 16 < > 12 GLUC -- -- 112* 98 78 -- 74 85 < > -- 91 < > 122* CA -- -- 6.4* 6.9* 6.4* -- 6.5* 6.9* < > -- 6.7* < > 8.1* P -- -- 1.9* -- -- -- -- 3.1 -- -- 4.8 -- -- MG -- -- 2.3 -- -- -- -- 1.9 -- 1.3* -- -- 1.4* ALB -- -- -- -- 1.7* -- -- -- -- -- -- -- -- AST -- -- -- -- 69* -- -- -- -- -- -- -- -- ALT -- -- -- -- 13 -- -- -- -- -- -- -- -- ALKPHOS -- -- -- -- 67 -- -- -- -- -- -- -- -- TBILI -- -- -- -- 2.9* -- -- -- -- -- -- -- -- WBC -- 11.17* -- 10.36* -- 10.80* 7.65 9.62* < > -- 9.99* < > 4.68 HB -- 12.7* -- 12.4* -- 12.3* 11.1* 12.1* < > -- 11.4* < > 13.0* HCT -- 37.2* -- 36.8* -- 37.2* 32.5* 36.5* < > -- 33.0* < > 38.4* PLT -- 60* -- 62* -- 71* 61* 59* < > -- 68* < > 79* LACT -- -- 1.7 1.9 2.4* -- 1.9 2.4* < > -- 6.4* < > -- INR 1.18 -- -- 1.23 1.31 -- 1.48 1.48 < > -- 1.43 < > 1.29 < > = values in this interval not displayed. ASSESSMENT AND PLAN: Active Hospital Problems Diagnosis Date Noted - Ruptured abdominal aortic aneurysm (AAA) ([facility]) 01/12/2018 - Encephalopathy 01/13/2018 - DIC (disseminated intravascular coagulation) ([facility]) 01/12/2018 - Hemorrhagic shock ([facility]) 01/12/2018 - Acute respiratory failure ([facility]) 01/12/2018 - Cardiac arrest ([facility]) 01/12/2018 - Hypernatremia 01/12/2018 - Hypokalemia 01/12/2018 - Hypomagnesemia 01/12/2018 - Hypophosphatemia 01/12/2018 - Hyperchloremia 01/12/2018 - AAA (abdominal aortic aneurysm, ruptured) ([facility]) 01/12/2018 Overview Note: Added automatically from request for surgery [id number] Assessment/Plan with Ruptured AAA s/p Emergent Repair, takeback washout, repair of serosal tears x2, on 01/12, hemorrhagic shock, acute resp failure with pulm edema, TERENCE, OR 01/14 for take back + washout ? - Vent mgmt per MICU - NPO/IVF - Wean Levo as able - q6 labs - Cont Abthera VAC - TERENCE -->?CVVHD per Nephro - Unasyn empirically, BCx ng@2 and rcx ng@ 1 - amiodrip for svt - continuous EEG for concern for seizure like activity. SIGNATURE: Kannan Felder MD PATIENT NAME: Naveen Akins DATE: January 15, 2018 TIME: 9:18 AM PAGER: [phone] PROTIME Collected: 01/15/2018 Status: F Source: [facility] 7:45 AM HEALTH SYSTEM REPOSITORY TYPE CODE TESTS RESULT OUT OF REFERENCE UNITS RANGE LAB PTI(LOINC) 9.3-11.9 sec Prothrombin High Time 12.2 LAB INR(LOINC) INR 1.18 Result Comment: Standard Therapy 2.0-3.0 High Dose 2.5-3.5 Performed By: #### PT #### [facility] [address] [address] FIBRINOGEN Collected: 01/15/2018 Status: F Source: [facility] 7:45 AM HEALTH SYSTEM REPOSITORY TYPE CODE TESTS RESULT OUT OF REFERENCE UNITS RANGE LAB FIB(LOINC) 180-430 mg/dl High Fibrinogen 497 Performed By: #### FIB #### [place] [address] MISC. SEND OUT Collected: 01/15/2018 Status: F Source: [facility] 7:45 AM HEALTH SYSTEM REPOSITORY TYPE CODE TESTS RESULT OUT OF REFERENCE UNITS RANGE LAB NAME1(LOIN C) Test Name APTT LAB RES(LOINC) Result 45.1 sec LAB REF(LOINC) Reference Range 0.0-40.0 sec LAB ADDR(LOINC ) Lab Name/Address See below Result Comment: Testing performed at [facility] [place] [address] Performed By: #### MISC2 #### [place] [address] PROGRESS Observed: 01/15/2018 Status: COMPLETED Source: [place] 6:29 AM CLINIC OTHER CAMPUS REPOSITORY O ID: [id number] Author: Dionicio (Res) Rodney Service: Vascular Surgery Author Type: Resident Type: Progress Notes Filed: 01/15/2018 8:11 AM Note Text: Vascular Surgery Progress Note SERVICE DATE: 01/15/2018 Vascular AND Thoracic Surgery Service Pager: For questions or concerns Mon-Fri 6a-5p please page [phone]. After 5pm and on Weekends and Holidays, please page [phone] if in ICU or [phone] if on RNF. Subjective SUBJECTIVE: SVT requiring Amio drip Diet: DIET NPO Objective OBJECTIVE: Vitals: Temp (24hrs), Av.3 ?C (97.3 ?F), Min:34.5 ?C (94.1 ?F), Max:36.8 ?C (98.2 ?F) BP (!) 85/45 Pulse 96 Temp 36.8 ?C (98.2 ?F) (Axillary) Resp 18 Ht 172.7 cm (5' 8) Wt 80.1 kg (176 lb 9.4 oz) SpO2 99% BMI 26.85 kg/m? O2 Therapy: Ventilator IANDO: Date 01/14/18 07 - 01/15/1865801/15/18699 - 01/16/18 0659 Shift 3582-0549 7028-0031 4248-2846 24 Hour Total 9101-4179 5584-3167 9131-9328 24 Hour Total I N T A K E IV 3000 4013 670.5 7683.5 NS 0.9% 3000 3000 NS .45% 1850 1850 Magnesium IVPB 100 100 LR 1000 1000 Fentanyl Volume 122.5 22.5 145 Amiodarone 267 51 318 NORepinephrine Volume 313.5 387 700.5 Propofol IV 160 60 220 MAGNESIUM SULFATE 50 50 Ampicillin/Sulbactam (Unasyn) IV 200 100 300 Shift Total 3000 4013 670.5 7683.5 O U T P U T Urine 80 70 9 159 Tube Output ( Indwelling Urinary Catheter 01/12/18 1108 Assessment Temperature Monitoring 16 Fr) 80 70 9 159 Drains 1000 1000 2000 Negative Pressure: Output (mL) (Negative Pressure Wound Therapy 01/12/18 0749 Abdomen) 1000 1000 2000 Tubes 2730 614 5339 3955 Drain/Tube Output (Drain/Tube 01/12/18 0100 Hemovac Midline Anterior Abdomen) 500 1125 1625 Drain/Tube Output (Drain/Tube 01/12/18 Fecal Management System) 250 30 0 280 Output (GI Feed/Drain 01/12/18 0100) 1100 487 365 4263 Dialysis 0 924 2623 3547 Dialysis Output (Ultrafiltration) 0 924 2623 3547 Shift Total 2430 2874 4357 9661 Weight (kg) 80.1 80.1 80.1 80.1 80.1 80.1 80.1 80.1 MEDICATIONS Current Facility-Administered Medications: sodium phosphate 30 mmol in D5W 250 mL 30 mmol INTRAVENOUS ONCE sodium phosphate 30 mmol in D5W 250 mL 30 mmol INTRAVENOUS ONCE amiodarone 360 mg in D5W 200 mL (NEXTERONE) 0.5-1 mg/min INTRAVENOUS CONTINUOUS heparin 5,000 Units injection 5,000 Units SUBCUTANEOUS q 12 H propofol infusion (DIPRIVAN) 5-60 mcg/kg/min INTRAVENOUS CONTINUOUS ampicillin-sulbactam 3 g in NaCl 0.9% 100 mL MB+ (UNASYN) 3 g INTRAVENOUS q 6 H NaCl 0.9% 1,000 mL iv bolus 1,000 mL INTRAVENOUS PRN DIALYSIS prismaSOL BGK 4 K / 2.5 mEq Ca/Liter 5,000 mL 5,000 mL HEMODIALYSIS continuous (no dispense) prismaSOL BGK 4 K / 2.5 mEq Ca/Liter 5,000 mL 5,000 mL HEMODIALYSIS continuous (no dispense) prismaSOL BGK 4 K / 2.5 mEq Ca/Liter 5,000 mL 5,000 mL HEMODIALYSIS continuous (no dispense) NaCl 0.45% iv infusion 200 mL/hr INTRAVENOUS CONTINUOUS dextrose 40 % 15 g 15 g ORAL PRN Or glucagon 1 mg injection (GLUCAGEN) 1 mg INTRAMUSCULAR PRN Or dextrose 50% in water 25 mL syringe 12.5 g INTRAVENOUS PRN magnesium sulfate 1 g in D5W 100 mL 1 g INTRAVENOUS PRN magnesium sulfate in water 2 g in sterile water 50 ml 2 g INTRAVENOUS PRN fentaNYL 20 mcg/mL iv infusion in NaCl 0.9% 100 mL 25-150 mcg/hr INTRAVENOUS CONTINUOUS pantoprazole 40 mg injection (PROTONIX) 40 mg INTRAVENOUS DAILY (6 AM) NORepinephrine 16 mg in D5W 250 mL (LEVOPHED) 0.6-40 mcg/min INTRAVENOUS CONTINUOUS Chlorhexidine Gluconate 0.12 % 15 mL (PERIDEX) 15 mL ORAL q 12 H Labs: Recent Labs 01/15/18 0430 01/15/18 0400 01/14/18 2210 01/14/18 1555 01/14/18 0440 NA -- 137 138 142 < > 142 K -- 4.3 4.6 4.5 < > 4.7 CHLOR -- 105 107 111* < > 110* CO2 -- 21 23 22 < > 24 BUN -- 16 16 17 < > 21* CREAT -- 2.10* 2.11* 2.10* < > 2.38* GLUC -- 112* 98 78 < > 85 ANION -- 15 13 14 < > 13 CA -- 6.4* 6.9* 6.4* < > 6.9* MG -- 2.3 -- -- -- 1.9 P -- 1.9* -- -- -- 3.1 ALB -- -- -- 1.7* -- -- AST -- -- -- 69* -- -- ALT -- -- -- 13 -- -- ALKPHOS -- -- -- 67 -- -- TBILI -- -- -- 2.9* -- -- WBC 11.17* -- 10.36* -- < > 9.62* HB 12.7* -- 12.4* -- < > 12.1* HCT 37.2* -- 36.8* -- < > 36.5* PLT 60* -- 62* -- < > 59* LACT -- 1.7 1.9 2.4* < > 2.4* INR -- -- 1.23 1.31 < > 1.48 PH -- 7.407 7.385 7.316* < > 7.400 PCO2 -- 33.6* 34.7* 42.8 < > 37.4 PO2 -- 79.4* 150.4* 72.8* < > 87.3 BE -- -3.3 -4.0 -4.6 < > -1.8 < > = values in this interval not displayed. Exam: GENERAL: No distress NEURO: sedated, not following HEENT: normocephalic, atraumatic LUNGS: Unlabored breathing O2 Therapy: Ventilator CARDIAC: Sinus tachy on Amio, Hypotension requiring Levo 35mcg/min ABDOMEN: Soft, mild D, aTTP, no PS, Vac w SS output EXTREMITIES: MAK, No deformities, + edema SKIN: Skin color, texture, turgor normal, No rashes or lesions ASSESSMENT AND PLAN: Active Hospital Problems Diagnosis Date Noted - Ruptured abdominal aortic aneurysm (AAA) ([facility]) 01/12/2018 - Encephalopathy 01/13/2018 - DIC (disseminated intravascular coagulation) ([facility]) 01/12/2018 - Hemorrhagic shock ([facility]) 01/12/2018 - Acute respiratory failure ([facility]) 01/12/2018 - Cardiac arrest ([facility]) 01/12/2018 - Hypernatremia 01/12/2018 - Hypokalemia 01/12/2018 - Hypomagnesemia 01/12/2018 - Hypophosphatemia 01/12/2018 - Hyperchloremia 01/12/2018 - AAA (abdominal aortic aneurysm, ruptured) ([facility]) 01/12/2018 Overview Note: Added automatically from request for surgery [id number] 77 year old male with Ruptured AAA s/p Emergent Repair, takeback washout, repair of serosal tears x2, on 01/12, hemorrhagic shock, acute resp failure with pulm edema, TERENCE, SVT, s/p Third Look Laparotomy and washout on 01/14 ? - Vent mgmt per MICU - NPO/IVF - Consider TPN - Wean Levo as able - Acute blood loss and dilutional anemia and thrombocytopenia - monitor, transfuse prn - q6 labs - Cont Abthera VAC - TERENCE --> CVVHD running even per Nephro - CXR with bilateral infiltrates (R>L), improving by my read - Unasyn empirically, BCx neg x2 day and RCx neg x1d - Hypophos - replacing - 01/13 Echo LVEF 55-60%, mild LVH - Amio per Cards for SVT ? Assessment and plan discussed with attending: Dr. Cox SIGNATURE: Dionicio Stevens MD PATIENT NAME: Naveen Akins DATE: January 15, 2018 TIME: 6:29 AM Vascular AND Thoracic Surgery Service Pager: For questions or concerns Mon-Tue 6a-5p please page [phone]. After 5pm and on Weekends and Holidays, please page [phone] if in ICU or [phone] if on RNF. CHEST 1 VIEW Observed: 01/15/2018 Status: F Source: [facility] 6:00 AM HEALTH SYSTEM REPOSITORY Performed at [facility] APPROVED BY: KRISTIE KHAN MD EXAM TITLE: PORTABLE AP/PA CHEST X RAY DATE: 01/15/2018 05:56 COMPARISON: 01/14/2018 CLINICAL INDICATION/HISTORY: Evaluate tube, line or lead position. ENCOUNTER: Not applicable TECHNIQUE: Single portable AP/PA radiograph of the chest RESULT: Patient mildly rotated to the right. Lines, tubes, and devices: Examination limited due to overlying EKG leads. Again demonstrated is endotracheal tube approximately 6.9 cm above the kianna. Again demonstrated is enteric tube, tube overlies the expected course of the esophagus and proximal stomach, tip not included on examination. Again demonstrated are right internal jugular and left internal jugular central venous catheters. The right internal jugular central venous catheter tip overlies the inferior one third of the SVC and t he left internal jugular central venous catheter overlies the superior aspect of the SVC, essentially unchanged in appearance and position. Lungs and pleura: Little interval change regarding diffuse mixed interstitial and airspace opacities throughout the lungs, worse at the bilateral mid and lower lung zones. Again demonstrated are hazy opacities overlying the bilateral mid and lower lung zones, compatible with the presence of moderate to large pleural effusions with atelectasis versus consolidation of the mid and lower lung zones. No discrete pneumothorax. Cardiomediastinal silhouette: Enlarged cardiac silhouette, essentially unchanged. Other: Partially visualized is ORIF of left proximal humerus, visualized portions of the hardware are intact. Multilevel degenerative changes of the thoracic spine. IMPRESSION: No significant interval change running support lines or catheters as described. Little interval change regarding findings compatible with diffuse pulmonary edema as well as layering of moderate to large bilateral pleural effusions with associated atelectasis versus consolidation of the bilateral mid and lower lung zones. PROGRESS Observed: 01/15/2018 Status: COMPLETED Source: [place] 5:06 AM CLINIC OTHER CAMPUS REPOSITORY [facility] ID: [id number] Author: Downtime Note Service: (none) Author Type: (none) Type: Progress Notes Filed: 01/15/2018 5:12 AM Note Text: Epic Scheduled Downtime: 01/15/2018 1:05:00 AM to 01/15/2018 4:56:36 AM HEMOGRAM/DIFF Collected: 01/15/2018 Status: F Source: [facility] 4:30 AM HEALTH SYSTEM REPOSITORY TYPE CODE TESTS RESULT OUT OF REFERENCE UNITS RANGE LAB WBC(LOINC) 4.23-9.07 thou/cmm WBC High 11.17 LAB RBC(LOINC) 4.63-6.08 mil/cmm Low RBC 4.44 LAB HGB(LOINC) 13.7-17.5 g/dL Low Hgb 12.7 LAB HCT(LOINC) 40.1-51.0 % Low Hct 37.2 LAB MCV(LOINC) 83.2-95.6 fl MCV 83.8 LAB MCH(LOINC) 25.7-32.2 pg MCH 28.6 LAB MCHC(LOINC 32.3-36.5 % ) MCHC 34.1 LAB RDW(LOINC) 11.6-14.4 % RDW High 17.1 LAB RDWSD(LOIN 36.1-45.8 fl C) RDW SD High 52.6 LAB PLT(LOINC) 141-365 thou/cmm Low Platelet 60 LAB MPV(LOINC) 8.7-12.0 fl MPV 10.9 LAB SEG(LOINC) % Seg Neutrophil 78.9 LAB IGRE(LOINC % ) Immature Grans 0.50 LAB LYMPH(LOIN % C) Lymphocyte 9.6 LAB MNO(LOINC) % Monocyte 2.6 LAB EOSIN(LOIN % C) Eosinophil 8.0 LAB BASO(LOINC % ) Basophil 0.4 LAB SEGN(LOINC 1.78-5.38 thou/cmm ) Abs. High Neut (ANC) 8.81 LAB IGAB(LOINC 0.00-0.05 thou/cmm ) Abs High Immature Grans 0.06 LAB LYMN(LOINC 0.84-2.85 thou/cmm ) Abs. Lymph 1.07 LAB MONON(LOIN 0.30-0.82 thou/cmm C) Low Abs. Rincon 0.29 LAB EOSN(LOINC 0.04-0.54 thou/cmm ) Abs. High Eosin 0.89 LAB BASON(LOIN 0.01-0.08 thou/cmm C) Abs. Baso 0.04 Result Comment: Smear scanned; tech agrees with automated differential Performed By: #### [id number] #### [place] [address] LACTIC ACID Collected: 01/15/2018 Status: F Source: [facility] 4:00 PENDING SALE TO [facility] REPOSITORY TYPE CODE TESTS RESULT OUT OF REFERENCE UNITS RANGE LAB LAC(LOINC) 0.4-2.0 mEq/L Lactic Acid 1.7 Performed By: #### LAC #### [place] [address] MAGNESIUM BLOOD Collected: 01/15/2018 Status: F Source: [facility] 4:00 AM HEALTH SYSTEM REPOSITORY TYPE CODE TESTS RESULT OUT OF REFERENCE UNITS RANGE LAB MAG(LOINC) 1.6-2.6 mg/dL Magnesium Blood 2.3 Performed By: #### MAG #### [place] [address] BASIC PANEL Collected: 01/15/2018 Status: F Source: [facility] 4:00 AM HEALTH SYSTEM REPOSITORY TYPE CODE TESTS RESULT OUT OF REFERENCE UNITS RANGE LAB NA(LOINC) 136-145 mEq/L Sodium Blood 137 LAB K(LOINC) 3.5-5.1 mEq/L Potassium Blood 4.3 LAB CL(LOINC) 98-107 mEq/L Chloride Blood 105 LAB CO2(LOINC) 21-32 mEq/L CO2 Blood 21 LAB GLU(LOINC) 70-99 mg/dL Glucose High Blood 112 LAB BUN(LOINC) 7-18 mg/dL BUN Blood 16 LAB CREA(LOINC 0.67-1.17 mg/dL ) High Creatinine Blood 2.10 LAB CA(LOINC) 8.5-10.1 mg/dL Low Calcium Blood 6.4 LAB ANGAP(LOIN 8-16 C) Anion Gap 15 Performed By: #### P8 #### [place] [address] PHOSPHORUS BLOOD Collected: 01/15/2018 Status: F Source: [facility] 4:00 AM HEALTH SYSTEM REPOSITORY TYPE CODE TESTS RESULT OUT OF REFERENCE UNITS RANGE LAB PHOS(LOINC 2.5-4.9 mg/dL ) Low alert Phosphorus Blood 1.9 Result Comment: RESULT RECHECKED Performed By: #### PHOS #### [place] [address] OPERATIVE NO Observed: 01/15/2018 Status: COMPLETED Source: [place] 12:00 AM [facility] OTHER CAMPUS REPOSITORY O ID: [id number] Author: Venkat Paniagua Service: Vascular Surgery Author Type: Physician Type: Operative Report Filed: 01/22/2018 7:14 PM Note Text: [facility] - Operative Report SURGEON: Venkat Paniagua MD PATIENT NAME: NAVEEN AKINS CSN: [id number] DATE OF SURGERY: 01/14/2018 DATE OF : 1940 SEX/AGE: M/77 PATIENT TYPE: I HOSP SVC: LICO LOCATION: [id number] DATE OF SURGERY: 01/14/2018 SURGEON: Venkat Paniagua MD The patient is an inpatient. PREOPERATIVE DIAGNOSIS: Status post ruptured abdominal aortic aneurysm with ABThera device in place. POSTOPERATIVE DIAGNOSIS: Status post ruptured abdominal aortic aneurysm with ABThera device in place. PROCEDURE: Removal of packing from retroperitoneum, intraabdominal irrigation, examination of the retroperitoneum and bowel, and replacement of ABThera device. VISUAL ARTS TEACHER: WILLIE Alvarez. ANESTHESIA: General. HISTORY: This is a patient who underwent exploration and repair of an abdominal aortic aneurysm rupture approximately 48 hours ago. He had to go back to surgery for coagulopathic bleeding and the retroperitoneum had to be packed with lap sponges to control this. He is brought back today for changing his ABThera device and in addition removal of the packs and assessment for both bowel viability as well as ongoing bleeding. Risks and benefits of this procedure were explained to the patient's family. PROCEDURE IN DETAIL: With the patient in supine position under adequate general anesthesia, the previous ABThera device was prepped into the sterile field. We draped the patient, and once sterile drapes were applied, the ABThera device was removed. We used saline to irrigate the abdomen and found minimal evidence of any type of bleeding in the superficial tissues. We then the bowel and reflected it superiorly finding the small bowel to all appear completely viable with no evidence of any ischemia. We then investigated the pelvis to evaluate the left colon, which there was some question of viability as the patient had been having bowel movements. However, the left colon and rectosigmoid appeared to be grossly viable with pink bowel and no evidence of ischemia of the transmural nature. With this being the case, we now irrigated further with saline to free up any mild adhesions that might be present and then reflected the abdominal contents superiorly and laterally. We then opened the retroperitoneum and opened the sac, but it had been closed over the packs in the retroperitoneum. We removed each of the 3 packs separately and individually inspected each area, the proximal anastomosis, the iliac anastomoses, and then the deep pelvis packing, which had to be placed secondary to the amount of blood that had dissected there from the aneurysm rupture. With removal of each of these, inspection for hemostasis was noted and there did not appear to be any active bleeding. At this point, we replaced hemostatic material in the pelvis over the distal anastomosis and over the proximal anastomosis, and once the hemostatic agent had been applied, we then allowed the aneurysm sac to fall back down and cover over the retroperitoneum. Now, the bowel was allowed to fall back into normal position. There was still incredible tension and swelling of the bowel and, therefore, it was felt that we could not close the abdomen at this time and decision was made to replace the ABThera device. A new ABThera device was brought on the field and cut to the appropriate size and placed appropriately to suction. With this being the case, the patient tolerated the procedure well with the exception of a brief bout of supraventricular tachycardia, which was controlled with beta blockade by the Anesthesia Service. The patient was now returned to the critical care unit in stable but critical condition. Venkat Paniagua MD Vascular Surgery DJW:modl /[id number] BLOOD GAS ARTERIAL Collected: 01/14/2018 Status: F Source: [facility] 10:10 PM HEALTH SYSTEM REPOSITORY TYPE CODE TESTS RESULT OUT OF REFERENCE UNITS RANGE LAB FIO2(LOINC % ) FIO2 60 LAB TEMPA(LOIN C) Temperature 37.0 LAB PH(LOINC) 7.350-7.450 pH Arterial 7.385 LAB PCO2(LOINC 36.0-46.0 mm Hg ) Low PCO2 Arterial 34.7 LAB PO2(LOINC) 85.0-96.0 mm Hg PO2 High Arterial 150.4 LAB HCO3A(LOIN 22.0-26.0 mEq/L C) Low HCO3- 20.3 LAB O2%A(LOINC 95.0-98.0 % ) O2% Sat High Arterial 98.8 LAB BASEX(LOIN -2.5 to 2.5 mEq/L C) Base Excess -4.0 Performed By: #### ABG #### [place] [address] FIBRINOGEN Collected: 01/14/2018 Status: F Source: [facility] 10:10 PM HEALTH SYSTEM REPOSITORY TYPE CODE TESTS RESULT OUT OF REFERENCE UNITS RANGE LAB FIB(LOINC) 180-430 mg/dl High Fibrinogen 518 Performed By: #### FIB #### [place] [address] PROTIME Collected: 01/14/2018 Status: F Source: [facility] 10:10 [facility] REPOSITORY TYPE CODE TESTS RESULT OUT OF REFERENCE UNITS RANGE LAB PTI(LOINC) 9.3-11.9 sec Prothrombin High Time 13.1 LAB INR(LOINC) INR 1.23 Result Comment: Standard Therapy 2.0-3.0 High Dose 2.5-3.5 Performed By: #### PT #### [facility] [address] [place] [address] ACTIVATED PTT Collected: 01/14/2018 Status: F Source: [facility] 10:10 PM HEALTH SYSTEM REPOSITORY TYPE CODE TESTS RESULT OUT OF REFERENCE UNITS RANGE LAB APTT(LOINC 22.0-34.0 sec ) High Activated PTT 37.6 Performed By: #### APTT #### [facility] [address] [place] [address] HEMOGRAM Collected: 01/14/2018 Status: F Source: [facility] 10:10 PM HEALTH SYSTEM REPOSITORY TYPE CODE TESTS RESULT OUT OF RANGE REFERENCE UNITS LAB WBC(LOINC) 4.23-9.07 thou/cmm High WBC 10.36 LAB RBC(LOINC) 4.63-6.08 mil/cmm Low RBC 4.35 LAB HGB(LOINC) 13.7-17.5 g/dL Low Hgb 12.4 LAB HCT(LOINC) 40.1-51.0 % Low Hct 36.8 LAB MCV(LOINC) 83.2-95.6 fl MCV 84.6 LAB MCH(LOINC) 25.7-32.2 pg MCH 28.5 LAB MCHC(LOINC) 32.3-36.5 % MCHC 33.7 LAB RDW(LOINC) 11.6-14.4 % High RDW 17.2 LAB RDWSD(LOINC 36.1-45.8 fl ) High RDW SD 53.7 Result Comment: Smear scanned tech agrees with platelet count LAB PLT(LOINC) 141-365 thou/cmm Low Platelet 62 LAB MPV(LOINC) 8.7-12.0 fl MPV 10.9 Performed By: #### CBC1 #### [place] [address] LACTIC ACID Collected: 01/14/2018 Status: F Source: [facility] 10:10 PM HEALTH SYSTEM REPOSITORY TYPE CODE TESTS RESULT OUT OF REFERENCE UNITS RANGE LAB LAC(LOINC) 0.4-2.0 mEq/L Lactic Acid 1.9 Performed By: #### LAC #### [place] [address] BASIC PANEL Collected: 01/14/2018 Status: F Source: [facility] 10:10 PM HEALTH SYSTEM REPOSITORY TYPE CODE TESTS RESULT OUT OF REFERENCE UNITS RANGE LAB NA(LOINC) 136-145 mEq/L Sodium Blood 138 LAB K(LOINC) 3.5-5.1 mEq/L Potassium Blood 4.6 LAB CL(LOINC) 98-107 mEq/L Chloride Blood 107 LAB CO2(LOINC) 21-32 mEq/L CO2 Blood 23 LAB GLU(LOINC) 70-99 mg/dL Glucose Blood 98 LAB BUN(LOINC) 7-18 mg/dL BUN Blood 16 LAB CREA(LOINC 0.67-1.17 mg/dL ) High Creatinine Blood 2.11 LAB CA(LOINC) 8.5-10.1 mg/dL Low Calcium Blood 6.9 LAB ANGAP(LOIN 8-16 C) Anion Gap 13 Performed By: #### P8 #### [place] [address] ANES POST Observed: 01/14/2018 Status: COMPLETED Source: [place] 6:38 PM CLINIC OTHER CAMPUS REPOSITORY O ID: [id number] Author: Anupam Juárez Service: Anesthesiology Author Type: Physician Type: Anesthesia PostOp Filed: 01/14/2018 6:39 PM Note Text: POST ANESTHESIA EVALUATION NOTE SERVICE DATE: 01/14/2018 SERVICE TIME: 6:38 PM : 1940 Vitals: 01/14/18 1045 01/14/18 1130 01/14/18 1300 01/14/18 1800 Temp: 36.5 ?C (97.7 ?F) 36.8 ?C (98.2 ?F) 36.4 ?C (97.5 ?F) 36.5 ?C (97.7 ?F) 01/14/18 17401/14/18 1800 01/14/18 1815 01/14/18 1830 Arterial BP 1: 99/52 109/57 116/54 115/57 BP: 102/55 119/65 124/69 127/79 01/14/18 1745 01/14/18 1800 01/14/18 1815 01/14/18 1830 Pulse: 106 104 108 105 01/14/18 17401/14/18 1800 01/14/18 1815 01/14/18 1830 Resp: 18 18 18 18 01/14/18 1745 01/14/18 1800 01/14/18 1815 01/14/18 1830 SpO2: 98% 100% 98% 99% Validated Vital Signs: Yes POST ANES STATUS: PACU/ICU Patient Condition: Unstable on vasopressors Neurological Status: Awake AND alert. Pulmonary Status: On invasive mechanical ventilation. Airway Control: Intubated on mechanical ventilation. Cardiovascular Status: Unstable On vasopressor and On inotropes Pain: Adequately controlled Postoperative Nausea/Vomiting: No significant post operative nausea or vomiting Postoperative Hydration Status: Being fluid resuscitated. Anesthetic Complications: None Recommendation: Continue current plan of care and Further care per PACU/ICU/Floor team Other Remarks: SIGNATURE: Anupam Juárez MD PATIENT NAME: Naveen Akins DATE: January 14, 2018 TIME: 6:38 PM PAGER/CONTACT #: NURSING PROG Observed: 01/14/2018 Status: COMPLETED Source: [place] 4:19 PM CLINIC OTHER CAMPUS REPOSITORY HNO ID: [id number] Author: Jose (Rn) MAGALY Jasso Service: Nursing Author Type: Registered Nurse Type: Nursing Progress Note Filed: 01/14/2018 4:21 PM Note Text: 1540. Noted spontaneous incease in hr to 180's. Dr. degroot in room 6mg of Adenosine ivp followed by amnio 150mg bolus and drip started at 1mg for 6hrs BLOOD GAS ARTERIAL Collected: 01/14/2018 Status: F Source: [facility] 3:55 PM HEALTH SYSTEM REPOSITORY TYPE CODE TESTS RESULT OUT OF REFERENCE UNITS RANGE LAB FIO2(LOINC % ) FIO2 Value Not Given LAB TEMPA(LOIN C) Temperature 37.0 LAB PH(LOINC) 7.350-7.450 Low pH Arterial 7.316 LAB PCO2(LOINC 36.0-46.0 mm Hg ) PCO2 Arterial 42.8 LAB PO2(LOINC) 85.0-96.0 mm Hg Low PO2 Arterial 72.8 LAB HCO3A(LOIN 22.0-26.0 mEq/L C) Low HCO3- 21.4 LAB O2%A(LOINC 95.0-98.0 % ) Low O2% Sat Arterial 94.7 LAB BASEX(LOIN -2.5 to 2.5 mEq/L C) Base Excess -4.6 Performed By: #### ABG #### [facility] [address] [place] [address] FIBRINOGEN Collected: 01/14/2018 Status: F Source: [facility] REPOSITORY TYPE CODE TESTS RESULT OUT OF REFERENCE UNITS RANGE LAB FIB(LOINC) 180-430 mg/dl High Fibrinogen 490 Performed By: #### FIB #### [place] [address] PROTIME Collected: 01/14/2018 Status: F Source: [facility] REPOSITORY TYPE CODE TESTS RESULT OUT OF REFERENCE UNITS RANGE LAB PTI(LOINC) 9.3-11.9 sec Prothrombin High Time 13.4 LAB INR(LOINC) INR 1.31 Result Comment: Standard Therapy 2.0-3.0 High Dose 2.5-3.5 Performed By: #### PT #### [place] [address] ACTIVATED PTT Collected: 01/14/2018 Status: F Source: [address] SYSTEM REPOSITORY TYPE CODE TESTS RESULT OUT OF REFERENCE UNITS RANGE LAB APTT(LOINC 22.0-34.0 sec ) High Activated PTT 38.6 Performed By: #### APTT #### [place] [address] LACTIC ACID Collected: 01/14/2018 Status: F Source: [address] SYSTEM REPOSITORY TYPE CODE TESTS RESULT OUT OF REFERENCE UNITS RANGE LAB LAC(LOINC) 0.4-2.0 mEq/L High alert Lactic Acid 2.4 Performed By: #### LAC #### [place] [address] BASIC PANEL Collected: 01/14/2018 Status: F Source: [address] HE[facility] SYSTEM REPOSITORY TYPE CODE TESTS RESULT OUT OF REFERENCE UNITS RANGE LAB NA(LOINC) 136-145 mEq/L Sodium Blood 142 LAB K(LOINC) 3.5-5.1 mEq/L Potassium Blood 4.5 LAB CL(LOINC) 98-107 mEq/L Chloride High Blood 111 LAB CO2(LOINC) 21-32 mEq/L CO2 Blood 22 LAB GLU(LOINC) 70-99 mg/dL Glucose Blood 78 LAB BUN(LOINC) 7-18 mg/dL BUN Blood 17 LAB CREA(LOINC 0.67-1.17 mg/dL ) High Creatinine Blood 2.10 LAB CA(LOINC) 8.5-10.1 mg/dL Low Calcium Blood 6.4 LAB ANGAP(LOIN 8-16 C) Anion Gap 14 Performed By: #### P8 #### [place] [address] TROPONIN I Collected: 01/14/2018 Status: F Source: [facility] 3:55 HEALTH SYSTEM REPOSITORY TYPE CODE TESTS RESULT OUT OF REFERENCE UNITS RANGE LAB TROP(LOINC) 0.015-0.045 ng/ml High Troponin I 0.228 Performed By: #### TROP #### [place] [address] HEPATIC PANEL Collected: 01/14/2018 Status: F Source: [facility] 3:55 HEALTH SYSTEM REPOSITORY TYPE CODE TESTS RESULT OUT OF REFERENCE UNITS RANGE LAB ALB(LOINC) 3.4-5.0 g/dL Low Albumin Blood 1.7 LAB ALT(LOINC) 12-78 U/L ALT-SGPT Blood 13 LAB ALKP(LOINC 46-116 U/L ) Alk Phosphatase 67 LAB TP(LOINC) 6.4-8.2 g/dL Low Total Protein 3.7 LAB AST(LOINC) 9-37 U/L AST-SGOT High Blood 69 LAB BILIT(LOIN 0.2-1.0 mg/dL C) Total High Bilirubin 2.9 LAB DBIL(LOINC 0.00-0.20 mg/dL ) Direct Bilirubin see below Result Comment: Hemoglobin interference present. No direct bilirubin result reportable. Performed By: #### HEPAP #### [place] [address] HEMOGRAM Collected: 01/14/2018 Status: F Source: [facility] 3:50 PM HEALTH SYSTEM REPOSITORY TYPE CODE TESTS RESULT OUT OF RANGE REFERENCE UNITS LAB WBC(LOINC) 4.23-9.07 thou/cmm High WBC 10.80 LAB RBC(LOINC) 4.63-6.08 mil/cmm Low RBC 4.34 LAB HGB(LOINC) 13.7-17.5 g/dL Low Hgb 12.3 LAB HCT(LOINC) 40.1-51.0 % Low Hct 37.2 LAB MCV(LOINC) 83.2-95.6 fl MCV 85.7 LAB MCH(LOINC) 25.7-32.2 pg MCH 28.3 LAB MCHC(LOINC) 32.3-36.5 % MCHC 33.1 LAB RDW(LOINC) 11.6-14.4 % High RDW 17.5 LAB RDWSD(LOINC 36.1-45.8 fl ) High RDW SD 55.0 Result Comment: Smear scanned tech agrees with platelet count LAB PLT(LOINC) 141-365 thou/cmm Low Platelet 71 LAB MPV(LOINC) 8.7-12.0 fl MPV 10.7 Performed By: #### CBC1 #### [place] [address] CONSULT Observed: 01/14/2018 Status: COMPLETED Source: [place] 3:39 PM CLINIC OTHER CAMPUS REPOSITORY HNO ID: [id number] Author: Gilbert Tucker Service: Cardiovascular Medicine Author Type: Physician Type: Consults Filed: 01/14/2018 3:49 PM Note Text: Card Consult Dictated Job [id number] 1.SVT in pt with AAA rupture, s/p arrest on NURSE'S ASSISTANT, pressors; Echo EF 55%-SVT related to meds, [place] -On IV Amio -now sinus tach will follow Thanks Gilbert Tucker MD Pager [phone] EKG (AK,AV,EU,FV,HL,CYNTHIA,MM,SP) Observed: Status: F Source: [place] 01/14/2018 2:46 PM CLINIC OTHER CAMPUS REPOSITORY NAME : NAVEEN AKINS PID : [id number] : 1940 Gender : Male Race : ORD : [id number] Procedure Date : Jan 14 2018 14:46 Edit Date : Jan 16 2018 09:08 Diagnosis:SINUS TACHYCARDIA WITH PREMATURE ATRIAL COMPLEXES LOW VOLTAGE QRS NONSPECIFIC T WAVE ABNORMALITY ABNORMAL ECG WHEN COMPARED WITH ECG OF 13-JAN-2018 20:19, PREMATURE ATRIAL COMPLEXES ARE NOW PRESENT Confirmed by MD MARIALUISA, G (2) on 01/16/2018 9:08:41 AM Ventricular Rate : 124 BPM Atrial Rate : 124 BPM P-R Interval : 122 ms QRS Duration : 70 ms Q-T Interval : 406 ms QTC Calculation(Bezet) : 583 ms P [place] : 15 degrees R [place] : -20 degrees T [place] : 23 degrees Test Reason : Arrhythmia Location : 6 : [facility] 3233 Overread By : MD ELAM G Editted By : MD ELAM G Referred By : PAULO LOVELACE Acquired by : LAM HOWELL PROGRESS Observed: 01/14/2018 Status: COMPLETED Source: [place] 2:18 PM CLINIC OTHER CAMPUS REPOSITORY O ID: [id number] Author: Paulo (Meter Repair Shop Supervisor) Radu Service: Critical Care Author Type: Nurse Specialist Type: Progress Notes Filed: 01/14/2018 3:29 PM Note Text: MICU - PROGRESS NOTE SERVICE DATE: 01/14/2018 SERVICE TIME: 2:18 PM Admission Date: 01/12/2018 AGE: [age] year old LOS: 2 days Subjective REASON FOR ICU ADMISSION: Respiratory Failure and Shock Objective PROBLEMS: ACTIVE PROBLEM LIST Gallstone Pancreatitis Ruptured Abdominal Aortic Aneurysm (Aaa) (Hcc) Dic (Disseminated Intravascular Coagulation) (Hcc) Hemorrhagic Shock (Hcc) Acute Respiratory Failure (Hcc) Cardiac Arrest (Hcc) Hypernatremia Hypokalemia Hypomagnesemia Hypophosphatemia Hyperchloremia Encephalopathy Aaa (Abdominal Aortic Aneurysm, Ruptured) (Hcc) PAST MEDICAL HISTORY Diagnosis Date - DIC (disseminated intravascular coagulation) (HCC) 01/12/2018 PAST SURGICAL HISTORY Procedure Laterality Date - LAP CHOLECYSTECT/CHOLANGIOGRAPHY 05-28-09 - REPAIR UMBILICAL NATAN,5+Y/O,REDUC 05-28-09 Social History Marital status: Spouse name: Shelly Years of education: 11 Number of children: 4 Occupational History 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 BP 103/64 Pulse 102 Temp (Src) 98.2 (Axillary) Resp 18 Ht 5' 8 (1.73m) Wt 176 lb 9.4 oz (80.1kg) SpO2 99% BMI 26.86 kg/(m2). Temp (24hrs), Av.2 ?C (97.1 ?F), Min:34.5 ?C (94.1 ?F), Max:36.8 ?C (98.2 ?F) NET FLUID BALANCE Intake/Output Summary (Last 24 hours) at 01/14/18 1418 Last data filed at 01/14/18 1137 Gross per 24 hour Intake 9393.5 ml Output 4439 ml Net 4954.5 ml MEDICATIONS Current Facility-Administered Medications: heparin 5,000 Units injection 5,000 Units SUBCUTANEOUS q 12 H propofol infusion (DIPRIVAN) 5-60 mcg/kg/min INTRAVENOUS CONTINUOUS ampicillin-sulbactam 3 g in NaCl 0.9% 100 mL MB+ (UNASYN) 3 g INTRAVENOUS q 6 H NaCl 0.9% 1,000 mL iv bolus 1,000 mL INTRAVENOUS PRN DIALYSIS prismaSOL BGK 4 K / 2.5 mEq Ca/Liter 5,000 mL 5,000 mL HEMODIALYSIS continuous (no dispense) prismaSOL BGK 4 K / 2.5 mEq Ca/Liter 5,000 mL 5,000 mL HEMODIALYSIS continuous (no dispense) prismaSOL BGK 4 K / 2.5 mEq Ca/Liter 5,000 mL 5,000 mL HEMODIALYSIS continuous (no dispense) NaCl 0.45% iv infusion 200 mL/hr INTRAVENOUS CONTINUOUS dextrose 40 % 15 g 15 g ORAL PRN Or glucagon 1 mg injection (GLUCAGEN) 1 mg INTRAMUSCULAR PRN Or dextrose 50% in water 25 mL syringe 12.5 g INTRAVENOUS PRN magnesium sulfate 1 g in D5W 100 mL 1 g INTRAVENOUS PRN magnesium sulfate in water 2 g in sterile water 50 ml 2 g INTRAVENOUS PRN fentaNYL 20 mcg/mL iv infusion in NaCl 0.9% 100 mL 25-150 mcg/hr INTRAVENOUS CONTINUOUS pantoprazole 40 mg injection (PROTONIX) 40 mg INTRAVENOUS DAILY (6 AM) NORepinephrine 16 mg in D5W 250 mL (LEVOPHED) 0.6-40 mcg/min INTRAVENOUS CONTINUOUS Chlorhexidine Gluconate 0.12 % 15 mL (PERIDEX) 15 mL ORAL q 12 H perflutren lipid microspheres 1.1 mg/mL 1.3 mL injection (DEFINITY) 1.3 mL INTRAVENOUS PRN(NO DISPENSE) Lines, Drains, and Airways Line Arterial Line 01/12/18 0238 Arterial Line Left Brachial 2 days Central Line Double Lumen 01/12/18 0239 Right Neck 2 days Dialysis / Apheresis Double Lumen 01/13/18 1136 Left Neck 1 day Drain Drain/Tube 01/12/18 0100 Hemovac Midline Anterior Abdomen 2 days Drain/Tube 01/12/18 Fecal Management System 2 days GI Feed/Drain 01/12/18 0100 2 days Indwelling Urinary Catheter 01/12/18 1108 Assessment Temperature Monitoring 16 Fr 2 days Airway Airway Endotracheal Tube 01/12/18 1138 2 days PHYSICAL EXAM PERFORMED: Cardiovascular: Regular rhythm Respiratory: Reduced breath sounds bilat %FIO2 Min: 60 Max: 90 Abdomen: Wound vac in place Draining sanguinous drainage Extremities: Edema- Yes Generalized edema Neurologic: Sedated Respiratory/Nursing Documentation: O2 Therapy: Ventilator (01/14/18 1200) Invasive Ventilator Mode: Pressure Regulated Volume Control (01/14/18 113) Set Ventilator Respiratory Rate (BPM): 18 (01/14/18 1137) Total Respiratory Rate (BPM): 18 (01/14/18 113) Tidal Volume Set (mL): 500 (01/14/18 113) Exhaled Tidal Volume (mL): 503 (01/14/18 113) Minute Volume (L): 9.1 (01/14/18 113) Peak Inspiratory Pressure (cm H2O): 24 (01/14/18 113) PEEP/CPAP (cm H2O): 8 (01/14/18 113) HEMODYNAMIC DATA: Reviewed NUTRITION: Enteral Feeds: No NPO DATA: Diagnostic tests reviewed for today's visit, films/specimens were personally reviewed by me: Most recent labs and imaging results. LABS: Recent Labs 01/14/18 1200 01/14/18 0440 WBC 7.65 9.62* RBC 3.85* 4.32* HB 11.1* 12.1* HCT 32.5* 36.5* MCV 84.4 84.5 PLT 61* 59* GLUC 74 85 BUN 19* 21* CREAT 2.36* 2.38* NA 143 142 K 4.5 4.7 CHLOR 112* 110* CO2 22 24 CA 6.5* 6.9* PTSEC 15.0* 14.9* APTT 48.7* 42.7* INR 1.48 1.48 MG -- 1.9 ABG: Recent Labs 01/14/18 1200 01/14/18 0440 01/13/18 2215 PH 7.395 7.400 7.359 PO2 112.3* 87.3 104.2* PCO2 34.0* 37.4 42.0 Assessment/Plan IMPRESSION: Critical Care Documentation: The patient has the following organ/system impairment(s): Acute blood loss and Respiratory failure (with Hypoxemia) 77 yo male with H/O AAA was transferred from [place] in shock 2/2 ruptured AAA s/p cardiac arrest with CPR and ROSC and s/p abdominal washout, repacking and repair of serosal tears x 2 1. Hemorrhagic shock currently on Levophed at 40 mcg-massive transfusion protocol-patient has had 1l bolus of LR 2.Acute hypoxic respiratory failure/pulmonary edema on CXR. -continue Unasyn 3. SVT with HR 180min-adenosine 6mg With minimal improvement-Amiodarone 150mg bolus followed by continuous infusion at 1 mg/min 4. ATN on CVVH-urine only 10ml/hr-creatinine 2.36 5. Continuous EEG in progress 6. Hgb every 6 hrs-monitor closely-Hgb at 12N 11.1 This patient has a high probability of sudden, clinically significant deterioration, which requires the highest level of physician preparedness to intervene urgently. I managed/supervised life or organ supporting interventions that required frequent physician assessment. I devoted my full attention to the direct care of this patient for the amount of time indicated below. Time I spent with family or surrogate(s) is included only if the patient was incapable of providing the necessary information or participating in medical decision making. Time devoted to teaching is not included. Discussed with staff/patient/family Time spent providing critical care services: 40 minutes excluding procedures. SIGNATURE: Paulo Lovelace APRN.MAINTENANCE TEAM MEMBER PATIENT NAME: Naveen Akins DATE: January 14, 2018 TIME: 2:18 PM PROGRESS Observed: 01/14/2018 Status: COMPLETED Source: [place] 12:39 PM CLINIC OTHER CAMPUS REPOSITORY HNO ID: [id number] Author: Roxane (Rn) MAGALY Silva Service: Dialysis Author Type: Registered Nurse Type: Progress Notes Filed: 01/14/2018 12:40 PM Note Text: CRRT restarted without problem. Report given to [employer]ACH. PT stable BLOOD GAS ARTERIAL Collected: 01/14/2018 Status: F Source: [facility] 12:00 PM HEALTH SYSTEM REPOSITORY TYPE CODE TESTS RESULT OUT OF REFERENCE UNITS RANGE LAB FIO2(LOINC % ) FIO2 Value Not Given LAB TEMPA(LOIN C) Temperature 37.0 LAB PH(LOINC) 7.350-7.450 pH Arterial 7.395 LAB PCO2(LOINC 36.0-46.0 mm Hg ) Low PCO2 Arterial 34.0 LAB PO2(LOINC) 85.0-96.0 mm Hg PO2 High Arterial 112.3 LAB HCO3A(LOIN 22.0-26.0 mEq/L C) Low HCO3- 20.4 LAB O2%A(LOINC 95.0-98.0 % ) O2% Sat High Arterial 98.1 LAB BASEX(LOIN -2.5 to 2.5 mEq/L C) Base Excess -3.8 Performed By: #### ABG #### [place] [address] HEMOGRAM Collected: 01/14/2018 Status: F Source: [facility] 12:00 HEALTH SYSTEM REPOSITORY TYPE CODE TESTS RESULT OUT OF REFERENCE UNITS RANGE LAB WBC(LOINC) 4.23-9.07 thou/cmm WBC 7.65 LAB RBC(LOINC) 4.63-6.08 mil/cmm Low RBC 3.85 LAB HGB(LOINC) 13.7-17.5 g/dL Low Hgb 11.1 LAB HCT(LOINC) 40.1-51.0 % Low Hct 32.5 LAB MCV(LOINC) 83.2-95.6 fl MCV 84.4 LAB MCH(LOINC) 25.7-32.2 pg MCH 28.8 LAB MCHC(LOINC) 32.3-36.5 % MCHC 34.2 LAB RDW(LOINC) 11.6-14.4 % High RDW 17.5 LAB RDWSD(LOINC 36.1-45.8 fl ) High RDW SD 54.5 LAB PLT(LOINC) 141-365 thou/cmm Low Platelet 61 LAB MPV(LOINC) 8.7-12.0 fl MPV 10.7 Performed By: #### CBC1 #### [place] [address] BASIC PANEL Collected: 01/14/2018 Status: F Source: [facility] 12:[facility] REPOSITORY TYPE CODE TESTS RESULT OUT OF REFERENCE UNITS RANGE LAB NA(LOINC) 136-145 mEq/L Sodium Blood 143 LAB K(LOINC) 3.5-5.1 mEq/L Potassium Blood 4.5 LAB CL(LOINC) 98-107 mEq/L Chloride High Blood 112 LAB CO2(LOINC) 21-32 mEq/L CO2 Blood 22 LAB GLU(LOINC) 70-99 mg/dL Glucose Blood 74 LAB BUN(LOINC) 7-18 mg/dL BUN High Blood 19 LAB CREA(LOINC 0.67-1.17 mg/dL ) High Creatinine Blood 2.36 LAB CA(LOINC) 8.5-10.1 mg/dL Low Calcium Blood 6.5 LAB ANGAP(LOIN 8-16 C) Anion Gap 14 Performed By: #### P8 #### [place] [address] LACTIC ACID Collected: 01/14/2018 Status: F Source: [facility] 12:[address] [place] [address] SYSTEM REPOSITORY TYPE CODE TESTS RESULT OUT OF REFERENCE UNITS RANGE LAB LAC(LOINC) 0.4-2.0 mEq/L Lactic Acid 1.9 Performed By: #### LAC #### [place] [address] FIBRINOGEN Collected: 01/14/2018 Status: F Source: [facility] 12:[facility] REPOSITORY TYPE CODE TESTS RESULT OUT OF REFERENCE UNITS RANGE LAB FIB(LOINC) 180-430 mg/dl Fibrinogen 374 Performed By: #### FIB #### [place] [address] PROTIME Collected: 01/14/2018 Status: F Source: [facility] 12:[facility] REPOSITORY TYPE CODE TESTS RESULT OUT OF REFERENCE UNITS RANGE LAB PTI(LOINC) 9.3-11.9 sec Prothrombin High Time 15.0 LAB INR(LOINC) INR 1.48 Result Comment: Standard Therapy 2.0-3.0 High Dose 2.5-3.5 Performed By: #### PT #### [facility] [address] [place], [place] [address] ACTIVATED PTT Collected: 01/14/2018 Status: F Source: [facility] 12:00 PM HEALTH SYSTEM REPOSITORY TYPE CODE TESTS RESULT OUT OF REFERENCE UNITS RANGE LAB APTT(LOINC 22.0-34.0 sec ) High Activated PTT 48.7 Performed By: #### APTT #### [facility] [address] [place], [place] [address] PROGRESS Observed: 01/14/2018 Status: COMPLETED Source: [place] 11:00 AM CLINIC OTHER CAMPUS REPOSITORY HNO ID: [id number] Author: Kannan Felder Service: General Surgery Author Type: Resident Type: Progress Notes Filed: 01/14/2018 12:04 PM Note Text: Attestation signed by Mark Woods at 01/14/2018 2:33 PM Seen in OR Mark Woods MD PROGRESS NOTE EGS Surgery Progress Note Emergency General Surgery Service Pager: For questions or concerns Mon-Fri 6a-5p please page [phone]. After 5pm and on Weekends and Holidays, please page [phone] if in ICU or [phone] if on RNF. SERVICE DATE: 01/14/2018 SERVICE TIME: 12:02 PM SUBJECTIVE: Subjective Subjective: This is a 77 year old male Pt intubated. Plan for take back to [place] today for reexploration. Wound vac put out over 3L. Still on norepinephrine. Bowel movement No Flatus No Diet DIET NPO Ambulating No Nausea No Emesis No Current Facility-Administered Medications: heparin 5,000 Units injection 5,000 Units SUBCUTANEOUS q 12 H propofol infusion (DIPRIVAN) 5-60 mcg/kg/min INTRAVENOUS CONTINUOUS ampicillin-sulbactam 3 g in NaCl 0.9% 100 mL MB+ (UNASYN) 3 g INTRAVENOUS q 6 H NaCl 0.9% 1,000 mL iv bolus 1,000 mL INTRAVENOUS PRN DIALYSIS prismaSOL BGK 4 K / 2.5 mEq Ca/Liter 5,000 mL 5,000 mL HEMODIALYSIS continuous (no dispense) prismaSOL BGK 4 K / 2.5 mEq Ca/Liter 5,000 mL 5,000 mL HEMODIALYSIS continuous (no dispense) prismaSOL BGK 4 K / 2.5 mEq Ca/Liter 5,000 mL 5,000 mL HEMODIALYSIS continuous (no dispense) NaCl 0.45% iv infusion 200 mL/hr INTRAVENOUS CONTINUOUS dextrose 40 % 15 g 15 g ORAL PRN Or glucagon 1 mg injection (GLUCAGEN) 1 mg INTRAMUSCULAR PRN Or dextrose 50% in water 25 mL syringe 12.5 g INTRAVENOUS PRN magnesium sulfate 1 g in D5W 100 mL 1 g INTRAVENOUS PRN magnesium sulfate in water 2 g in sterile water 50 ml 2 g INTRAVENOUS PRN fentaNYL 20 mcg/mL iv infusion in NaCl 0.9% 100 mL 25-150 mcg/hr INTRAVENOUS CONTINUOUS pantoprazole 40 mg injection (PROTONIX) 40 mg INTRAVENOUS DAILY (6 AM) NORepinephrine 16 mg in D5W 250 mL (LEVOPHED) 0.6-40 mcg/min INTRAVENOUS CONTINUOUS Chlorhexidine Gluconate 0.12 % 15 mL (PERIDEX) 15 mL ORAL q 12 H perflutren lipid microspheres 1.1 mg/mL 1.3 mL injection (DEFINITY) 1.3 mL INTRAVENOUS PRN(NO DISPENSE) OBJECTIVE: Objective PHYSICAL EXAM: VITAL SIGNS BP 138/75 Pulse 105 Temp (Src) 94.1 (Axillary) Resp 18 Ht 5' 8 (1.73m) Wt 176 lb 9.4 oz (80.1kg) SpO2 98% BMI 26.86 kg/(m2). Temp (24hrs), Av ?C (96.8 ?F), Min:34.5 ?C (94.1 ?F), Max:36.6 ?C (97.9 ?F) Date 01/13/18 0700 - 01/14/18 0659 01/14/18 0700 - 01/15/18 0659 Shift 9757-6525 0386-1689 8934-8412 24 Hour Total 7909-5586 1164-2884 6234-4231 24 Hour Total I N T A K E IV 2200 2770 3066.5 8036.5 3000 3000 NS 0.9% 3000 3000 NS .45% 1400 2325 3725 Magnesium IVPB 100 100 LR 2000 1000 3000 Fentanyl Volume 100 102.6 202.6 NORepinephrine Volume 70 176.9 246.9 Propofol IV 100 62 162 Ampicillin/Sulbactam (Unasyn) IV 200 400 600 Blood Products 600 257 857 PRBC Intake (mL) 600 600 Platelet mL 257 257 Shift Total 2800 3027 3066.5 8893.5 3000 3000 O U T P U T Urine 20 120 25 165 80 80 Tube Output ( Indwelling Urinary Catheter 01/12/18 1108 Assessment Temperature Monitoring 16 Fr) 20 120 25 165 80 80 Drains 2500 700 3200 500 500 Negative Pressure: Output (mL) (Negative Pressure Wound Therapy 01/12/18 0749 Abdomen) 2500 700 3200 500 500 Tubes 062 253 3940 1950 1350 1350 Drain/Tube Output (Drain/Tube 01/12/18 0100 Hemovac Midline Anterior Abdomen) 500 1000 1500 Drain/Tube Output (Drain/Tube 01/12/18 Fecal Management System) 250 200 450 250 250 Output (GI Feed/Drain 01/12/18 0100) 0 0 0 1100 1100 Dialysis 155 59 214 Dialysis Output (Ultrafiltration) 155 59 214 Shift Total 3020 1225 1284 5529 1930 1930 Weight (kg) 80.1 80.1 80.1 80.1 80.1 80.1 80.1 80.1 GENERAL: intubated/sedated SKIN: Skin color, texture, turgor normal. No rashes or lesions. LUNGS: Unlabored breathing on O2 Therapy: Ventilator on sating at SpO2: 98 % CARDIAC: rate and rhythm as above, ABDOMEN: No masses, hepatosplenomegaly, No lymphadenopathy and wound vac in place EXTREMITIES: Deferred WOUND: wound vac In place DATA: Diagnostic tests reviewed for today's visit: Recent Labs 01/14/18 0440 01/13/18 2215 01/13/18 1600 PH 7.400 7.359 7.370 PCO2 37.4 42.0 39.1 PO2 87.3 104.2* 65.2* BE -1.8 -2.2 -2.8 Recent Labs 01/14/18 0440 01/13/18 2215 01/13/18 2120 01/13/18 1600 01/13/18 1015 01/13/18 0615 01/13/18 0455 01/12/18 1140 CREAT 2.38* 2.45* -- 2.54* 2.49* -- 2.15* < > 1.18* BUN 21* 23* -- 25* 25* -- 24* < > 17 NA 142 143 -- 149* 150* -- 152* < > 156* K 4.7 4.9 -- 4.9 5.1 -- 5.3* < > 2.9* CHLOR 110* 112* -- 117* 116* -- 118* < > 121* CO2 24 25 -- 23 23 -- 23 < > 26 ANION 13 11 -- 14 16 -- 16 < > 12 GLUC 85 88 -- 91 99 -- 91 < > 122* CA 6.9* 6.7* -- 6.8* 6.9* -- 6.7* < > 8.1* P 3.1 -- -- -- -- -- 4.8 -- -- MG 1.9 -- -- -- -- 1.3* -- -- 1.4* WBC 9.62* 11.29* -- 10.62* 11.26* -- 9.99* < > 4.68 HB 12.1* 13.1* 13.0* 13.0* 11.0* -- 11.4* < > 13.0* HCT 36.5* 38.8* -- 38.3* 32.6* -- 33.0* < > 38.4* PLT 59* 74* -- 56* 64* -- 68* < > 79* LACT 2.4* 2.6* -- 4.0* 5.5* -- 6.4* < > -- INR 1.48 1.46 -- 1.55 1.59 -- 1.43 < > 1.29 < > = values in this interval not displayed. ASSESSMENT AND PLAN: Active Hospital Problems Diagnosis Date Noted - Ruptured abdominal aortic aneurysm (AAA) ([facility]) 01/12/2018 - Encephalopathy 01/13/2018 - DIC (disseminated intravascular coagulation) ([facility]) 01/12/2018 - Hemorrhagic shock ([facility]) 01/12/2018 - Acute respiratory failure ([facility]) 01/12/2018 - Cardiac arrest ([facility]) 01/12/2018 - Hypernatremia 01/12/2018 - Hypokalemia 01/12/2018 - Hypomagnesemia 01/12/2018 - Hypophosphatemia 01/12/2018 - Hyperchloremia 01/12/2018 - AAA (abdominal aortic aneurysm, ruptured) ([facility]) 01/12/2018 Overview Note: Added automatically from request for surgery [id number] Assessment/Plan with Ruptured AAA s/p Emergent Repair, takeback washout, repair of serosal tears x2, on 01/12, hemorrhagic shock, acute resp failure with pulm edema, TERENCE ? - Vent mgmt per MICU - NPO/IVF - Wean Levo as able - Acute blood loss and dilutional anemia and thrombocytopenia- transfused platelet 01/13/18 - q6 labs - Cont Abthera VAC - TERENCE --> CVVHD per Nephro - Unasyn empirically, BCx and RCx pending - OR 01/14 for take back SIGNATURE: Kannan Felder MD PATIENT NAME: Naveen Akins DATE: January 14, 2018 TIME: 12:02 PM PAGER: [phone] PROGRESS Observed: 01/14/2018 Status: COMPLETED Source: [place] 10:07 AM CLINIC OTHER CAMPUS REPOSITORY O ID: [id number] Author: Renate Handy Service: Nephrology Author Type: Physician Type: Progress Notes Filed: 01/14/2018 10:14 AM Note Text: NEPHROLOGY PROGRESS NOTE SERVICE DATE: 01/14/2018 SERVICE TIME: 10:08 AM Subjective INTERVAL HISTORY: Pt went to OR this morning for wash out and check bowel. Per RN, linkthing was stable He just arrived back and is off CRRT Planning to restart MEDICATIONS: Current hospital medications: [MAR Hold due to Transfer] calcium gluconate 4 g in NaCl 0.9% 250 mL 4 g INTRAVENOUS ONCE [MAR Hold due to Transfer] propofol infusion (DIPRIVAN) 5- 60 mcg/kg/min INTRAVENOUS CONTINUOUS [MAR Hold due to Transfer] ampicillin-sulbactam 3 g in NaCl 0.9% 100 mL MB+ (UNASYN) 3 g INTRAVENOUS q 6 H [MAR Hold due to Transfer] NaCl 0.9% 1,000 mL iv bolus 1,000 mL INTRAVENOUS PRN DIALYSIS [MAR Hold due to Transfer] prismaSOL BGK 4 K / 2.5 mEq Ca/Liter 5,000 mL 5,000 mL HEMODIALYSIS continuous (no dispense) [MAR Hold due to Transfer] prismaSOL BGK 4 K / 2.5 mEq Ca/Liter 5,000 mL 5,000 mL HEMODIALYSIS continuous (no dispense) [MAR Hold due to Transfer] prismaSOL BGK 4 K / 2.5 mEq Ca/Liter 5,000 mL 5,000 mL HEMODIALYSIS continuous (no dispense) [MAR Hold due to Transfer] NaCl 0.45% iv infusion 200 mL/hr INTRAVENOUS CONTINUOUS [MAR Hold due to Transfer] dextrose 40 % 15 g 15 g ORAL PRN [MAR Hold due to Transfer] glucagon 1 mg injection (GLUCAGEN) 1 mg INTRAMUSCULAR PRN [MAR Hold due to Transfer] dextrose 50% in water 25 mL syringe 12.5 g INTRAVENOUS PRN [MAR Hold due to Transfer] magnesium sulfate 1 g in D5W 100 mL 1 g INTRAVENOUS PRN [MAR Hold due to Transfer] magnesium sulfate in water 2 g in sterile water 50 ml 2 g INTRAVENOUS PRN [MAR Hold due to Transfer] fentaNYL 20 mcg/mL iv infusion in NaCl 0.9% 100 mL 25-150 mcg/hr INTRAVENOUS CONTINUOUS [MAR Hold due to Transfer] pantoprazole 40 mg injection (PROTONIX) 40 mg INTRAVENOUS DAILY (6 AM) [MAR Hold due to Transfer] NORepinephrine 16 mg in D5W 250 mL (LEVOPHED) 0.6-40 mcg/min INTRAVENOUS CONTINUOUS [MAR Hold due to Transfer] Chlorhexidine Gluconate 0.12 % 15 mL (PERIDEX) 15 mL ORAL q 12 H [MAR Hold due to Transfer] perflutren lipid microspheres 1.1 mg/mL 1.3 mL injection (DEFINITY) 1.3 mL INTRAVENOUS PRN(NO DISPENSE) Vital Signs; Patient Vitals for the past 24 hrs: BP Temp Temp src Pulse Resp SpO2 01/14/18 0731 - - - 115 18 98 % 01/14/18 0700 - - - (!) 123 16 97 % 01/14/18 0600 - - - 119 18 96 % 01/14/18 0500 - - - 116 18 97 % 01/14/18 0412 - - - - 18 - 01/14/18 0400 - - - 118 18 98 % 01/14/18 0300 - - - (!) 121 18 97 % 01/14/18 0200 - - - (!) 122 18 97 % 01/14/18 0100 - - - (!) 121 17 97 % 01/14/18 0000 - - - (!) 122 14 97 % 01/13/18 2306 - - - 119 18 99 % 01/13/18 2300 - - - 119 18 99 % 01/13/18 2200 - - - 120 17 99 % 01/13/18 2100 - - - (!) 165 17 98 % 01/13/18 2012 - - - 113 18 96 % 01/13/181999 - - - 115 18 95 % 01/13/18 1948 - - - 116 17 96 % 01/13/18 1900 - - - 115 18 96 % 01/13/18 1856 112/58 36.2 ?C (97.2 ?F) Axillary 114 18 97 % 01/13/18 1845 - - - 117 18 97 % 01/13/18 1830 - - - 115 18 90 % 01/13/18 1815 - - - 113 18 92 % 01/13/18 1800 - - - 113 18 92 % 01/13/18 1745 - - - 111 17 93 % 01/13/18 1730 - - - 109 15 93 % 01/13/18 1715 - - - 107 18 95 % 01/13/18 1700 - - - 109 18 96 % 01/13/18 1645 - - - 111 18 95 % 01/13/18 1630 - - - 111 18 95 % 01/13/18 1615 - - - 109 18 94 % 01/13/18 1600 - - - 111 17 94 % 01/13/18 1545 - - - 107 18 94 % 01/13/18 1530 - - - 103 18 94 % 01/13/18 1515 - - - 117 18 97 % 01/13/18 1500 - - - 117 18 96 % 01/13/18 1445 - - - 114 18 95 % 01/13/18 1430 - - - 104 18 97 % 01/13/18 1425 - 36.2 ?C (97.2 ?F) Axillary 104 18 95 % 01/13/18 1415 - 36.4 ?C (97.5 ?F) Axillary 104 18 96 % 01/13/18 1400 - - - 105 18 96 % 01/13/18 1345 - - - 107 18 95 % 01/13/18 1330 - - - 108 18 94 % 01/13/18 1315 - - - 111 18 95 % 01/13/18 1300 - 36 ?C (96.8 ?F) Axillary 113 18 96 % 01/13/18 1245 - - - 111 19 97 % 01/13/18 1234 - - - 113 - 94 % 01/13/18 1230 - - - 110 18 90 % 01/13/18 1215 - - - 107 18 95 % 01/13/18 1200 - 36 ?C (96.8 ?F) Axillary 106 18 95 % 01/13/18 1145 - - - 106 18 95 % 01/13/18 1130 - - - 109 18 94 % 01/13/18 1115 - - - 109 18 94 % 01/13/18 1100 - - - 108 18 95 % 01/13/18 1045 - - - 107 18 95 % 01/13/18 1030 - - - 108 18 94 % 01/13/18 1015 - - - 102 18 96 % Current wt: Last 1 Encounter Wt Readings: Date: Wt: 01/12/2018 80.1 kg (176 lb 9.4 oz) Objective PHYSICAL EXAM: General: Sedated. On mechanical ventilator. HEENT: Atraumatic, normocephalic, Intubated. Eyes: Pupils equal, round and reactive to light. Neck: No JVD, no thyromegaly, no lymphadenopathy. HD catheter on R Chest: Coarse BS bilaterally. Cardiac: S1 S2 RR, no murmurs, gallops or rubs Abdomen: Wound vac in place. Abdomen is soft. Neuro: Sedated, No FND. SKIN: No rashes, good skin turgor. Extremities: No edema. ? ? Labs: Recent Labs 01/14/18 0440 01/13/18 2215 01/13/18 2120 01/13/18 1600 01/13/18 1015 01/13/18 0615 01/13/18 0455 01/12/18 1140 CREAT 2.38* 2.45* -- 2.54* 2.49* -- 2.15* < > 1.18* BUN 21* 23* -- 25* 25* -- 24* < > 17 NA 142 143 -- 149* 150* -- 152* < > 156* K 4.7 4.9 -- 4.9 5.1 -- 5.3* < > 2.9* CHLOR 110* 112* -- 117* 116* -- 118* < > 121* CO2 24 25 -- 23 23 -- 23 < > 26 ANION 13 11 -- 14 16 -- 16 < > 12 GLUC 85 88 -- 91 99 -- 91 < > 122* CA 6.9* 6.7* -- 6.8* 6.9* -- 6.7* < > 8.1* P 3.1 -- -- -- -- -- 4.8 -- -- MG 1.9 -- -- -- -- 1.3* -- -- 1.4* WBC 9.62* 11.29* -- 10.62* 11.26* -- 9.99* < > 4.68 HB 12.1* 13.1* 13.0* 13.0* 11.0* -- 11.4* < > 13.0* HCT 36.5* 38.8* -- 38.3* 32.6* -- 33.0* < > 38.4* PLT 59* 74* -- 56* 64* -- 68* < > 79* < > = values in this interval not displayed. Recent Labs 01/14/18 0440 01/13/18 2215 01/13/18 1600 01/13/18 1015 01/13/18 0455 PH 7.400 7.359 7.370 7.378 7.365 PCO2 37.4 42.0 39.1 37.7 40.7 PO2 87.3 104.2* 65.2* 77.2* 84.6* LACT 2.4* 2.6* 4.0* 5.5* 6.4* Assessment/Plan 1. Acute kidney injury on chronic kidney disease stage 3. Baseline SCr is 1.36 mg/dL on 11/14/17. CKD is likely due to nephrosclerosis related to PAD. TERENCE is 2/2 ischemic ATN from hemorrhagic shock. Pt is anuric with increased pressor requirement -cont CVVHDF -run even -monitor lytles q8 hrs while on CRRT, lytes reviewed ? 2. Shock. Likely hemorrhagic shock-massive blood loss from ruptured AAA. Currently requiring pressor. Ongoing volume resuscitation. Running even with CRRT ? 3. Hypernatremia. Corrected 4. Hyperkalemia. Mild. 2/2 TERENCE. Stable on CRRT. ? 5. Ruptured AAA. s/p repair 01/12/18. Management as per vascular surgery. ? 6. Acute hypoxic respiratory failure. Ventilator dependent. Vent management as per . ? ? Thank you for allowing me to participate in care of Naveen Akins. Please do not hesitate to contact me at [phone] with any concerns SIGNATURE: Renate Handy DO PATIENT NAME: Naveen Akins DATE: January 14, 2018 TIME: 10:08 AM PAGER/CONTACT #: [phone] PREOP Observed: 01/14/2018 Status: COMPLETED Source: [place] 8:12 AM [facility] OTHER CAMPUS REPOSITORY O ID: [id number] Author: Anupam Juárez Service: Anesthesiology Author Type: Physician Type: Anesthesia PreOp Filed: 01/14/2018 8:15 AM Note Text: ANESTHESIOLOGY DAY OF SURGERY NOTE SERVICE DATE: 01/14/2018 SERVICE TIME: 8:12 AM : 1940 Procedure(s) (LRB): EXPLORATION ABDOMINAL VESSELS (N/A) OMENTECTOMY (N/A) Surgeon(s): Venkat Woods Estimated body mass index is 26.85 kg/m? as calculated from the following: Height as of this encounter: 172.7 cm (5' 8). Weight as of this encounter: 80.1 kg (176 lb 9.4 oz). Most recent hematocrit and potassium results: Hematocrit 36.5 01/14/2018 Potassium 4.7 01/14/2018 ANES DOS/PREOP NOTE: Vitals: 01/14/18 0500 01/14/18 0600 01/14/18 0700 01/14/18 0731 BP: Pulse: 116 119 (!) 123 115 Resp: Temp: TempSrc: SpO2: 97% 96% 97% 98% Weight: Height: ACTIVE PROBLEM LIST Gallstone Pancreatitis Ruptured Abdominal Aortic Aneurysm (Aaa) (Hcc) Dic (Disseminated Intravascular Coagulation) (Hcc) Hemorrhagic Shock (Hcc) Acute Respiratory Failure (Hcc) Cardiac Arrest (Hcc) Hypernatremia Hypokalemia Hypomagnesemia Hypophosphatemia Hyperchloremia Encephalopathy Aaa (Abdominal Aortic Aneurysm, Ruptured) (Hcc) PAST MEDICAL HISTORY Diagnosis Date - DIC (disseminated intravascular coagulation) (HCC) 01/12/2018 PAST SURGICAL HISTORY Procedure Laterality Date - LAP CHOLECYSTECT/CHOLANGIOGRAPHY 05-28-09 - REPAIR UMBILICAL NATAN,5+Y/O,REDUC 05-28-09 FAMILY HISTORY Problem Relation Age of Onset - Coronary Artery Disease Father - None Mother Social History: Social History Substance Use Topics - Smoking status: Never Smoker - Smokeless tobacco: Not on file - Alcohol use No No current facility-administered medications on file prior to encounter. Current Outpatient Prescriptions on File Prior to Encounter: metoprolol succinate(TOPROL XL 50 MG 24 HR TAB) Take one(1) tablet daily. ASPIRIN 325 MG TAB Take one(1) tablet daily. triamterene/hydrochlorothiazid(DYAZIDE 37.5 MG-25 MG CAP) take one half (1/2) tablet daily LIPITOR 10 MG TAB Take one(1) tablet daily. Current Facility-Administered Medications: calcium gluconate 4 g in NaCl 0.9% 250 mL 4 g INTRAVENOUS ONCE Dionicio (Res) Stevens Last Rate: 250 mL/hr at 01/14/18 0752 4 g at 01/14/18 0752 propofol infusion (DIPRIVAN) 5-60 mcg/kg/min INTRAVENOUS CONTINUOUS Chente R Cucci Last Rate: 4.81 mL/hr at 01/14/18 0628 10 mcg/kg/min at 01/14/18 0628 ampicillin-sulbactam 3 g in NaCl 0.9% 100 mL MB+ (UNASYN) 3 g INTRAVENOUS q 6 H Chente R Cucci Last Rate: 200 mL/hr at 01/14/18 0608 3 g at 01/14/18 0608 NaCl 0.9% 1,000 mL iv bolus 1,000 mL INTRAVENOUS PRN DIALYSIS Shen Lorenzo prismaSOL BGK 4 K / 2.5 mEq Ca/Liter 5,000 mL 5,000 mL HEMODIALYSIS continuous (no dispense) Shen Lorenzo 5,000 mL at 01/14/18 0207 prismaSOL BGK 4 K / 2.5 mEq Ca/Liter 5,000 mL 5,000 mL HEMODIALYSIS continuous (no dispense) Shen Lorenzo 5,000 mL at 01/14/18 0207 prismaSOL BGK 4 K / 2.5 mEq Ca/Liter 5,000 mL 5,000 mL HEMODIALYSIS continuous (no dispense) Shen Lorenzo 5,000 mL at 01/14/18 0207 NaCl 0.45% iv infusion 200 mL/hr INTRAVENOUS CONTINUOUS Elder Granda Last Rate: 200 mL/hr at 01/14/18 0607 200 mL/hr at 01/14/18 0607 dextrose 40 % 15 g 15 g ORAL PRN Jack Regula Or glucagon 1 mg injection (GLUCAGEN) 1 mg INTRAMUSCULAR PRN Jack Regula Or dextrose 50% in water 25 mL syringe 12.5 g INTRAVENOUS PRN Jack Regula magnesium sulfate 1 g in D5W 100 mL 1 g INTRAVENOUS PRN Emilie (Res) Cardella magnesium sulfate in water 2 g in sterile water 50 ml 2 g INTRAVENOUS PRN Emilie (Res) Cardella Last Rate: 25 mL/hr at 01/13/18 1004 2 g at 01/13/18 1004 fentaNYL 20 mcg/mL iv infusion in NaCl 0.9% 100 mL 25-150 mcg/hr INTRAVENOUS CONTINUOUS Emilie (Res) Cardella Last Rate: 7.5 mL/hr at 01/14/18 0237 150 mcg/hr at 01/14/18 0237 pantoprazole 40 mg injection (PROTONIX) 40 mg INTRAVENOUS DAILY (6 AM) Emilie (Res) Cardella 40 mg at 01/14/18 0608 NORepinephrine 16 mg in D5W 250 mL (LEVOPHED) 0.6-40 mcg/min INTRAVENOUS CONTINUOUS Chente R Cucci Last Rate: 32.81 mL/hr at 01/14/18 0207 35 mcg/min at 01/14/18 0207 Chlorhexidine Gluconate 0.12 % 15 mL (PERIDEX) 15 mL ORAL q 12 H Elder Granda 15 mL at 01/13/182124 perflutren lipid microspheres 1.1 mg/mL 1.3 mL injection (DEFINITY) 1.3 mL INTRAVENOUS PRN(NO DISPENSE) Chente Whittaker Allergies: ALLERGIES No Known Allergies DOS EXAM: Adequate NPO Status: Yes Anesthetic Risks, Benefits, Alternatives, Personnel and Consent Discussed: No: Consent by Surgical service, ICU or Primary service Patient agrees to proceed: Yes, per patient's parent/guardian Previous Anesthesia: No history of adverse event Airway Assessment: Patient intubated or has existing tracheostomy. Symptoms of Sleep Apnea: Male gender Dentition: intubated Additional Physical Exam: Lungs: Patient health status unchanged since recent history and physical. See history and physical for exam findings. Cardiac: Patient health status unchanged since recent history and physical. See history and physical for exam findings. Additional Pertinent Findings: N/A Blood Products: Will accept Blood/Blood Products Anesthetic Plan: General Anesthetic Monitoring: Standard ASA Monitors, Invasive Hemodynamic Monitoring Arterial line and CVP, Potential Prolonged Intubation, Potential ICU Admission Postop and Potential Multiple Transfusions Pain Management Plan: Parenteral or Oral ASA Class: 4 Other Medical Problems: Open AAA repair. Brought back to OR for coagulopathy. coagulopahty seems to have resolved. In ICU intubated on norepinephrine gtt. CVVHD. Open abdomen with abthera. Plan to OR for reexploration, possible resection of bowel. Reapplication of wound vac Platelets 59 this AM Antibiotics: - Unasyn q 6 hours, last dose 608, next dose due 1208 Recent Labs 01/14/18 0440 01/13/18 2215 01/13/18 2120 01/13/18 1600 01/13/18 0615 01/13/18 0455 01/12/18 1140 WBC 9.62* 11.29* -- 10.62* < > -- 9.99* < > 4.68 HB 12.1* 13.1* 13.0* 13.0* < > -- 11.4* < > 13.0* HCT 36.5* 38.8* -- 38.3* < > -- 33.0* < > 38.4* PLT 59* 74* -- 56* < > -- 68* < > 79* INR 1.48 1.46 -- 1.55 < > -- 1.43 < > 1.29 APTT 42.7* 38.7* -- 37.6* < > -- 36.5* < > 32.9 NA 142 143 -- 149* < > -- 152* < > 156* K 4.7 4.9 -- 4.9 < > -- 5.3* < > 2.9* CHLOR 110* 112* -- 117* < > -- 118* < > 121* CO2 24 25 -- 23 < > -- 23 < > 26 BUN 21* 23* -- 25* < > -- 24* < > 17 CREAT 2.38* 2.45* -- 2.54* < > -- 2.15* < > 1.18* GLUC 85 88 -- 91 < > -- 91 < > 122* CA 6.9* 6.7* -- 6.8* < > -- 6.7* < > 8.1* MG 1.9 -- -- -- -- 1.3* -- -- 1.4* P 3.1 -- -- -- -- -- 4.8 -- -- < > = values in this interval not displayed. Antibody Screen Date Value Ref Range Status 01/12/2018 NEGATIVE Final Chronic Beta Lyric medication administered within 24 hours: N/A I have interviewed and examined the patient. I have reviewed the medical record and/or the pre-anesthesia evaluation, pertinent labs, and test results. Significant changes in the patient's condition since the History and Physical, not otherwise documented in primary service progress notes: No This contains updated information obtained within 48 hours of Surgery/Procedure. SIGNATURE: Anupam Juárez MD PATIENT NAME: Naveen Akins DATE: January 14, 2018 TIME: 8:12 AM CSN: [id number] CONSULT PROG Observed: 01/14/2018 Status: COMPLETED Source: [place] 7:27 AM [facility] OTHER CAMPUS REPOSITORY O ID: [id number] Author: Elder Granda Service: Critical Care Author Type: Physician Type: Consult Progress Note Filed: 01/14/2018 7:44 AM Note Text: ICU - PROGRESS NOTE SERVICE DATE: 01/14/2018 SERVICE TIME: 7:28 AM Admission Date: 01/12/2018 AGE: [age] year old LOS: 2 days Subjective REASON FOR ICU ADMISSION: AAA rupture s/p repair ROS not possible 2/2 mental status. Per RN patient's pressor requirements going up. Going for surgery at 8AM today Objective VITAL SIGNS (last 24hrs min/max): Temp Av.2 ?C (97.2 ?F) Min: 36 ?C (96.8 ?F) Max: 36.5 ?C (97.7 ?F) Pulse Av.5 Min: 102 Max: 165 Arterial BP 1 Min: 77/48 Max: 176/81 Cuff BP Min: 112/58 Max: 112/58 Pain Score: 0/10 Vital signs reviewed. BP 112/58 Pulse 123 Temp (Src) 97.2 (Axillary) Resp 16 Ht 5' 8 (1.73m) Wt 176 lb 9.4 oz (80.1kg) SpO2 97% BMI 26.86 kg/(m2). Temp (24hrs), Av.2 ?C (97.2 ?F), Min:36 ?C (96.8 ?F), Max:36.5 ?C (97.7 ?F) NET FLUID BALANCE Intake/Output Summary (Last 24 hours) at 01/14/18 0728 Last data filed at 01/14/18 0617 Gross per 24 hour Intake 8893.5 ml Output 5029 ml Net 3864.5 ml MEDICATIONS Current Facility-Administered Medications: calcium gluconate 4 g in NaCl 0.9% 250 mL 4 g INTRAVENOUS ONCE propofol infusion (DIPRIVAN) 5-60 mcg/kg/min INTRAVENOUS CONTINUOUS ampicillin-sulbactam 3 g in NaCl 0.9% 100 mL MB+ (UNASYN) 3 g INTRAVENOUS q 6 H NaCl 0.9% 1,000 mL iv bolus 1,000 mL INTRAVENOUS PRN DIALYSIS prismaSOL BGK 4 K / 2.5 mEq Ca/Liter 5,000 mL 5,000 mL HEMODIALYSIS continuous (no dispense) prismaSOL BGK 4 K / 2.5 mEq Ca/Liter 5,000 mL 5,000 mL HEMODIALYSIS continuous (no dispense) prismaSOL BGK 4 K / 2.5 mEq Ca/Liter 5,000 mL 5,000 mL HEMODIALYSIS continuous (no dispense) NaCl 0.45% iv infusion 200 mL/hr INTRAVENOUS CONTINUOUS dextrose 40 % 15 g 15 g ORAL PRN Or glucagon 1 mg injection (GLUCAGEN) 1 mg INTRAMUSCULAR PRN Or dextrose 50% in water 25 mL syringe 12.5 g INTRAVENOUS PRN magnesium sulfate 1 g in D5W 100 mL 1 g INTRAVENOUS PRN magnesium sulfate in water 2 g in sterile water 50 ml 2 g INTRAVENOUS PRN fentaNYL 20 mcg/mL iv infusion in NaCl 0.9% 100 mL 25-150 mcg/hr INTRAVENOUS CONTINUOUS pantoprazole 40 mg injection (PROTONIX) 40 mg INTRAVENOUS DAILY (6 AM) NORepinephrine 16 mg in D5W 250 mL (LEVOPHED) 0.6-40 mcg/min INTRAVENOUS CONTINUOUS Chlorhexidine Gluconate 0.12 % 15 mL (PERIDEX) 15 mL ORAL q 12 H perflutren lipid microspheres 1.1 mg/mL 1.3 mL injection (DEFINITY) 1.3 mL INTRAVENOUS PRN(NO DISPENSE) Lines, Drains, and Airways Line Arterial Line 01/12/18 0238 Arterial Line Left Brachial 2 days Central Line Double Lumen 01/12/18 0239 Right Neck 2 days Dialysis / Apheresis Double Lumen 01/13/18 1136 Left Neck less than 1 day Drain Drain/Tube 01/12/18 0100 Hemovac Midline Anterior Abdomen 2 days Drain/Tube 01/12/18 Fecal Management System 2 days GI Feed/Drain 01/12/18 0100 2 days Indwelling Urinary Catheter 01/12/18 1108 Assessment Temperature Monitoring 16 Fr 1 day Airway Airway Endotracheal Tube 01/12/18 1138 1 day PHYSICAL EXAM PERFORMED: Constitutional: Lying in bed, appears comfortable HEENT: Intubated, IJ line in place Cardiovascular: Regular rhythm Respiratory: Air entry equal bilaterally %FIO2 Min: 60 Max: 80 Abdomen: Wound vac in place Extremities: Edema- Yes, Peripheral pulses present Neurologic: Sedated Respiratory/Nursing Documentation: O2 Therapy: Ventilator (01/14/18411) Invasive Ventilator Mode: Pressure Regulated Volume Control (01/14/18411) Set Ventilator Respiratory Rate (BPM): 18 (01/14/18411) Total Respiratory Rate (BPM): 18 (01/14/18411) Tidal Volume Set (mL): 500 (01/14/18411) Exhaled Tidal Volume (mL): 501 (01/14/18411) Minute Volume (L): 9.1 (01/14/18411) Peak Inspiratory Pressure (cm H2O): 24 (01/14/18411) PEEP/CPAP (cm H2O): 8 (01/14/18411) HEMODYNAMIC DATA: Reviewed NUTRITION: Enteral Feeds: No NPO DATA: Diagnostic tests reviewed for today's visit, films/specimens were personally reviewed by me: Most recent labs and imaging results. LABS: Recent Labs 01/14/1843901/13/18221401/13/18 0615 WBC 9.62* 11.29* < > -- RBC 4.32* 4.63 < > -- HB 12.1* 13.1* < > -- HCT 36.5* 38.8* < > -- MCV 84.5 83.8 < > -- PLT 59* 74* < > -- GLUC -- 88 < > -- BUN -- 23* < > -- CREAT -- 2.45* < > -- NA -- 143 < > -- K -- 4.9 < > -- CHLOR -- 112* < > -- CO2 -- 25 < > -- CA -- 6.7* < > -- PTSEC 14.9* 14.8* < > -- APTT 42.7* 38.7* < > -- INR 1.48 1.46 < > -- MG -- -- -- 1.3* < > = values in this interval not displayed. ABG: Recent Labs 01/14/1843901/13/18221401/13/18 1600 PH 7.400 7.359 7.370 PO2 87.3 104.2* 65.2* PCO2 37.4 42.0 39.1 Assessment/Plan IMPRESSION: Critical Care Documentation: The patient has the following organ/system impairment(s): Circulatory shock, Complex life-threatening medical problem(s) and Respiratory failure (Acute, with Hypoxemia) 77 year old male with PMH of AAA who was transferred to [facility] in shock 2/2 ruptured AAA c/b cardiac arrest s/p CPR and ROSC and s/p abdominal washout, repacking and repair of serosal tears x2. Hemorrhagic shock, currently on pressors. Bloody output in wound vac. Received multiple units of pRBC, platelets, cryo, FFP as part of massive transfusion protocol. IV fluids maintenance and bolus ongoing. Acute hypoxic respiratory failure 2/2 pulmonary edema in the setting of massive transfusion. Intubated and mechanically ventilated. Tracheal aspirate NGTD, on Unasyn Acute blood loss anemia ATN on CVVH PLAN: Continue mechanical ventilation, wean PEEP and FiO2 as able to target SpO2 > 92% Continue IV fluids, pressors to a MAP goal of 65. Target net even. If abdomen closed will have to be cautious with IVF and monitor for ACS. CVVH per nephro Continue ABx and d/c if respiratory Cx remain negative tomorrow and if no new infection suspected Wound Vac and AAA recs per vascular ICU PPx This patient has a high probability of sudden, clinically significant deterioration, which requires the highest level of physician preparedness to intervene urgently. I managed/supervised life or organ supporting interventions that required frequent physician assessment. I devoted my full attention to the direct care of this patient for the amount of time indicated below. Time I spent with family or surrogate(s) is included only if the patient was incapable of providing the necessary information or participating in medical decision making. Time devoted to teaching is not included. Discussed with staff Time spent providing critical care services: 35 minutes excluding procedures. SIGNATURE: Elder Granda MD PATIENT NAME: Naveen Akins DATE: January 14, 2018 TIME: 7:28 AM PROGRESS Observed: 01/14/2018 Status: COMPLETED Source: [place] 6:42 AM [facility] OTHER CAMPUS REPOSITORY O ID: [id number] Author: Dionicio Palacios) Rodney Service: Vascular Surgery Author Type: Resident Type: Progress Notes Filed: 01/14/2018 8:48 AM Note Text: Vascular Surgery Progress Note SERVICE DATE: 01/14/2018 Vascular AND Thoracic Surgery Service Pager: For questions or concerns Mon-Tue 6a-5p please page [phone]. After 5pm and on Weekends and Holidays, please page [phone] if in ICU or [phone] if on RNF. Subjective SUBJECTIVE: CVVHD started overnight, transfused platelets Diet: DIET NPO Objective OBJECTIVE: Vitals: Temp (24hrs), Av.3 ?C (97.3 ?F), Min:36 ?C (96.8 ?F), Max:36.5 ?C (97.7 ?F) BP 112/58 Pulse 119 Temp 36.2 ?C (97.2 ?F) (Axillary) Resp 18 Ht 172.7 cm (5' 8) Wt 80.1 kg (176 lb 9.4 oz) SpO2 96% BMI 26.85 kg/m? O2 Therapy: Ventilator IANDO: Date 01/13/18 07 - 01/14/18 0659 01/14/18 07 - 01/15/18 0659 Shift 2416-1967 7360-7439 4877-5170 24 Hour Total 9690-0533 3471-8970 9083-1948 24 Hour Total I N T A K E IV 2200 2770 3066.5 8036.5 NS .45% 1400 2325 3725 Magnesium IVPB 100 100 LR 2000 1000 3000 Fentanyl Volume 100 102.6 202.6 NORepinephrine Volume 70 176.9 246.9 Propofol IV 100 62 162 Ampicillin/Sulbactam (Unasyn) IV 200 400 600 Blood Products 600 257 857 PRBC Intake (mL) 600 600 Platelet mL 257 257 Shift Total 2800 3027 3066.5 8893.5 O U T P U T Urine 20 120 25 165 Tube Output ( Indwelling Urinary Catheter 01/12/18 1108 Assessment Temperature Monitoring 16 Fr) 20 120 25 165 Drains 2500 700 3200 Negative Pressure: Output (mL) (Negative Pressure Wound Therapy 01/12/18 0749 Abdomen) 2500 700 3200 Tubes 530 575 2189 1950 Drain/Tube Output (Drain/Tube 01/12/18 0100 Hemovac Midline Anterior Abdomen) 500 1000 1500 Drain/Tube Output (Drain/Tube 01/12/18 Fecal Management System) 250 200 450 Output (GI Feed/Drain 01/12/18 0100) 0 0 0 Dialysis 155 54 209 Dialysis Output (Ultrafiltration) 155 54 209 Shift Total 3020 1225 1279 5524 Weight (kg) 80.1 80.1 80.1 80.1 80.1 80.1 80.1 80.1 MEDICATIONS Current Facility-Administered Medications: calcium gluconate 4 g in NaCl 0.9% 250 mL 4 g INTRAVENOUS ONCE propofol infusion (DIPRIVAN) 5-60 mcg/kg/min INTRAVENOUS CONTINUOUS ampicillin-sulbactam 3 g in NaCl 0.9% 100 mL MB+ (UNASYN) 3 g INTRAVENOUS q 6 H NaCl 0.9% 1,000 mL iv bolus 1,000 mL INTRAVENOUS PRN DIALYSIS prismaSOL BGK 4 K / 2.5 mEq Ca/Liter 5,000 mL 5,000 mL HEMODIALYSIS continuous (no dispense) prismaSOL BGK 4 K / 2.5 mEq Ca/Liter 5,000 mL 5,000 mL HEMODIALYSIS continuous (no dispense) prismaSOL BGK 4 K / 2.5 mEq Ca/Liter 5,000 mL 5,000 mL HEMODIALYSIS continuous (no dispense) NaCl 0.45% iv infusion 200 mL/hr INTRAVENOUS CONTINUOUS dextrose 40 % 15 g 15 g ORAL PRN Or glucagon 1 mg injection (GLUCAGEN) 1 mg INTRAMUSCULAR PRN Or dextrose 50% in water 25 mL syringe 12.5 g INTRAVENOUS PRN magnesium sulfate 1 g in D5W 100 mL 1 g INTRAVENOUS PRN magnesium sulfate in water 2 g in sterile water 50 ml 2 g INTRAVENOUS PRN fentaNYL 20 mcg/mL iv infusion in NaCl 0.9% 100 mL 25-150 mcg/hr INTRAVENOUS CONTINUOUS pantoprazole 40 mg injection (PROTONIX) 40 mg INTRAVENOUS DAILY (6 AM) NORepinephrine 16 mg in D5W 250 mL (LEVOPHED) 0.6-40 mcg/min INTRAVENOUS CONTINUOUS Chlorhexidine Gluconate 0.12 % 15 mL (PERIDEX) 15 mL ORAL q 12 H perflutren lipid microspheres 1.1 mg/mL 1.3 mL injection (DEFINITY) 1.3 mL INTRAVENOUS PRN(NO DISPENSE) Labs: Recent Labs 01/14/18 0440 01/13/18 2215 01/13/18 1600 01/13/18 0615 01/13/18 0455 01/12/18 1140 NA -- 143 -- 149* < > -- 152* < > 156* K -- 4.9 -- 4.9 < > -- 5.3* < > 2.9* CHLOR -- 112* -- 117* < > -- 118* < > 121* CO2 -- 25 -- 23 < > -- 23 < > 26 BUN -- 23* -- 25* < > -- 24* < > 17 CREAT -- 2.45* -- 2.54* < > -- 2.15* < > 1.18* GLUC -- 88 -- 91 < > -- 91 < > 122* ANION -- 11 -- 14 < > -- 16 < > 12 CA -- 6.7* -- 6.8* < > -- 6.7* < > 8.1* MG -- -- -- -- -- 1.3* -- -- 1.4* P -- -- -- -- -- -- 4.8 -- -- WBC 9.62* 11.29* -- 10.62* < > -- 9.99* < > 4.68 HB 12.1* 13.1* < > 13.0* < > -- 11.4* < > 13.0* HCT 36.5* 38.8* -- 38.3* < > -- 33.0* < > 38.4* PLT 59* 74* -- 56* < > -- 68* < > 79* LACT -- 2.6* -- 4.0* < > -- 6.4* < > -- INR 1.48 1.46 -- 1.55 < > -- 1.43 < > 1.29 PH 7.400 7.359 -- 7.370 < > -- 7.365 < > 7.305* PCO2 37.4 42.0 -- 39.1 < > -- 40.7 < > 47.5* PO2 87.3 104.2* -- 65.2* < > -- 84.6* < > 82.9* BE -1.8 -2.2 -- -2.8 < > -- -2.4 < > -3.4 < > = values in this interval not displayed. Exam: GENERAL: No distress NEURO: sedated, not following commands HEENT: normocephalic, atraumatic LUNGS: Unlabored breathing O2 Therapy: Ventilator CARDIAC: sinus tachy, hypotensive on Levo ABDOMEN: Soft, mildlt D, TTP, VAC intact with SS output EXTREMITIES: MAK, No deformities, + edema SKIN: Skin color, texture, turgor normal, No rashes or lesions ASSESSMENT AND PLAN: Active Hospital Problems Diagnosis Date Noted - Ruptured abdominal aortic aneurysm (AAA) ([facility]) 01/12/2018 - Encephalopathy 01/13/2018 - DIC (disseminated intravascular coagulation) ([facility]) 01/12/2018 - Hemorrhagic shock ([facility]) 01/12/2018 - Acute respiratory failure ([facility]) 01/12/2018 - Cardiac arrest ([facility]) 01/12/2018 - Hypernatremia 01/12/2018 - Hypokalemia 01/12/2018 - Hypomagnesemia 01/12/2018 - Hypophosphatemia 01/12/2018 - Hyperchloremia 01/12/2018 - AAA (abdominal aortic aneurysm, ruptured) (HCC) 01/12/2018 Overview Note: Added automatically from request for surgery [id number] 77 year old male with Ruptured AAA s/p Emergent Repair, takeback washout, repair of serosal tears x2, on 01/12, hemorrhagic shock, acute resp failure with pulm edema, TERENCE ? - Vent mgmt per MICU - NPO/IVF - Wean Levo as able - Acute blood loss and dilutional anemia and thrombocytopenia- transfusing platelets now, pRBCs on hold for OR - q6 labs - Cont Abthera VAC - TERENCE --> CVVHD running even per Nephro - CXR with bilateral infiltrates, improving by my read - Unasyn empirically, BCx neg x1 day and RCx pending (stain neg) - Hypocalcemia - replacing - 01/13 Echo LVEF 55-60%, mild LVH - OR today ? Assessment and plan discussed with attending: Dr. Paniagua SIGNATURE: Dionicio Stevens MD PATIENT NAME: Naveen Akins DATE: January 14, 2018 TIME: 6:42 AM Vascular AND Thoracic Surgery Service Pager: For questions or concerns Mon-Fri 6a-5p please page [phone]. After 5pm and on Weekends and Holidays, please page [phone] if in ICU or [phone] if on RNF. CHEST 1 VIEW Observed: 01/14/2018 Status: F Source: [facility] 6:04 AM HEALTH SYSTEM REPOSITORY Performed at [facility] APPROVED BY: KRISTIE KHAN MD EXAM TITLE: PORTABLE AP/PA CHEST X RAY DATE: 01/14/2018 05:56 COMPARISON: 01/13/2018 CLINICAL INDICATION/HISTORY: Evaluate tube, line or lead position ENCOUNTER: Not applicable TECHNIQUE: Single portable AP/PA radiograph of the chest RESULT: Lines, tubes, and devices: Examination limited due to overlying EKG leads. Again demonstrated is endotracheal tube approximately 5.8 cm above the kianna. No significant interval change regarding right internal and left internal jugular central venous catheters. The right IJ central venous catheter tip overlies the SVC have been right atrial junction. T he left internal jugular central venous catheter tip overlies the superior aspect of the SVC. Again demonstrated is enteric tube, tube overlies the expected course of the esophagus and proximal stomach, tip not on examination.. Lungs and pleura: Low lung volumes, likely related to poor inspiratory result. Diffuse mixed interstitial and airspace opacities throughout the lungs, slightly improved since previous examination. Hazy opacities overlying the bilateral mid and lower lung zones, compatible with the layering of pleural effusions with associated atelectasis versus consolidation the bilateral lower lung zones. No discrete pneumothorax. Increased prominence of the pulmonary vascularity. Cardiomediastinal silhouette: Mildly enlarged cardiac silhouette, however this is likely accentuated by low lung volumes and portable technique. Other: Partially visualized is left proximal humerus ORIF, visualized hardware intact. Osseous structures and soft tissues otherwise grossly intact. IMPRESSION: Diffuse mixed interstitial and airspace opacities throughout the lungs, slightly improved since previous examination and compatible with pulmonary edema/CHF. Hazy opacities overlying the bilateral mid and lower lung zones, compatible with the layering of pleural effusions with associated atelectasis versus consolidation the bilateral lower lung zones. Mild cardiomegaly, essentially unchanged. No significant interval change regarding support lines or catheters as described. FIBRINOGEN Collected: 01/14/2018 Status: F Source: [facility] 4:40 AM HEALTH SYSTEM REPOSITORY TYPE CODE TESTS RESULT OUT OF REFERENCE UNITS RANGE LAB FIB(LOINC) 180-430 mg/dl High Fibrinogen 452 Performed By: #### FIB #### [place] [address] ACTIVATED PTT Collected: 01/14/2018 Status: F Source: [facility] 4:40 AM HEALTH SYSTEM REPOSITORY TYPE CODE TESTS RESULT OUT OF REFERENCE UNITS RANGE LAB APTT(LOINC 22.0-34.0 sec ) High Activated PTT 42.7 Performed By: #### APTT #### [place] [address] PROTIME Collected: 01/14/2018 Status: F Source: [facility] 4:40 PENDING SALE TO [facility] REPOSITORY TYPE CODE TESTS RESULT OUT OF REFERENCE UNITS RANGE LAB PTI(LOINC) 9.3-11.9 sec Prothrombin High Time 14.9 LAB INR(LOINC) INR 1.48 Result Comment: Standard Therapy 2.0-3.0 High Dose 2.5-3.5 Performed By: #### PT #### [place] [address] HEMOGRAM/DIFF Collected: 01/14/2018 Status: F Source: [facility] 4:40 AM HEALTH SYSTEM REPOSITORY TYPE CODE TESTS RESULT OUT OF REFERENCE UNITS RANGE LAB WBC(LOINC) 4.23-9.07 thou/cmm WBC High 9.62 LAB RBC(LOINC) 4.63-6.08 mil/cmm Low RBC 4.32 LAB HGB(LOINC) 13.7-17.5 g/dL Low Hgb 12.1 LAB HCT(LOINC) 40.1-51.0 % Low Hct 36.5 LAB MCV(LOINC) 83.2-95.6 fl MCV 84.5 LAB MCH(LOINC) 25.7-32.2 pg MCH 28.0 LAB MCHC(LOINC 32.3-36.5 % ) MCHC 33.2 LAB RDW(LOINC) 11.6-14.4 % RDW High 17.5 LAB RDWSD(LOIN 36.1-45.8 fl C) RDW SD High 54.3 LAB PLT(LOINC) 141-365 thou/cmm Low Platelet 59 LAB MPV(LOINC) 8.7-12.0 fl MPV 10.7 LAB SEG(LOINC) % Seg Neutrophil 79.4 LAB IGRE(LOINC % ) Immature Grans 0.60 LAB LYMPH(LOIN % C) Lymphocyte 8.4 LAB MNO(LOINC) % Monocyte 2.8 LAB EOSIN(LOIN % C) Eosinophil 8.6 LAB BASO(LOINC % ) Basophil 0.2 LAB SEGN(LOINC 1.78-5.38 thou/cmm ) Abs. High Neut (ANC) 7.64 LAB IGAB(LOINC 0.00-0.05 thou/cmm ) Abs High Immature Grans 0.06 LAB LYMN(LOINC 0.84-2.85 thou/cmm ) Low Abs. Lymph 0.81 LAB MONON(LOIN 0.30-0.82 thou/cmm C) Low Abs. Rincon 0.27 LAB EOSN(LOINC 0.04-0.54 thou/cmm ) Abs. High Eosin 0.83 LAB BASON(LOIN 0.01-0.08 thou/cmm C) Abs. Baso 0.02 Result Comment: Smear scanned; tech agrees with automated differential Performed By: #### CBCD1 #### [place] [address] MAGNESIUM BLOOD Collected: 01/14/2018 Status: F Source: [facility] 4:40 AM HEALTH SYSTEM REPOSITORY TYPE CODE TESTS RESULT OUT OF REFERENCE UNITS RANGE LAB MAG(LOINC) 1.6-2.6 mg/dL Magnesium Blood 1.9 Performed By: #### MAG #### [place] [address] PHOSPHORUS BLOOD Collected: 01/14/2018 Status: F Source: [facility] 4:40 AM HEALTH SYSTEM REPOSITORY TYPE CODE TESTS RESULT OUT OF REFERENCE UNITS RANGE LAB PHOS(LOINC 2.5-4.9 mg/dL ) Phosphorus Blood 3.1 Performed By: #### PHOS #### [place] [address] BASIC PANEL Collected: 01/14/2018 Status: F Source: [facility] 4:40 AM HEALTH SYSTEM REPOSITORY TYPE CODE TESTS RESULT OUT OF REFERENCE UNITS RANGE LAB NA(LOINC) 136-145 mEq/L Sodium Blood 142 LAB K(LOINC) 3.5-5.1 mEq/L Potassium Blood 4.7 LAB CL(LOINC) 98-107 mEq/L Chloride High Blood 110 LAB CO2(LOINC) 21-32 mEq/L CO2 Blood 24 LAB GLU(LOINC) 70-99 mg/dL Glucose Blood 85 LAB BUN(LOINC) 7-18 mg/dL BUN High Blood 21 LAB CREA(LOINC 0.67-1.17 mg/dL ) High Creatinine Blood 2.38 LAB CA(LOINC) 8.5-10.1 mg/dL Low Calcium Blood 6.9 LAB ANGAP(LOIN 8-16 C) Anion Gap 13 Performed By: #### P8 #### [place] [address] LACTIC ACID Collected: 01/14/2018 Status: F Source: [facility] 4:40 HEALTH SYSTEM REPOSITORY TYPE CODE TESTS RESULT OUT OF REFERENCE UNITS RANGE LAB LAC(LOINC) 0.4-2.0 mEq/L High alert Lactic Acid 2.4 Performed By: #### LAC #### [address] [address] CONSULT Observed: 01/14/2018 Status: COMPLETED Source: [place] 12:00 AM CLINIC OTHER CAMPUS REPOSITORY [facility] ID: [id number] Author: Gilbert Tucker Service: Cardiovascular Medicine Author Type: Physician Type: Consults Filed: 01/15/2018 11:32 AM Note Text: [facility] - Consultation PATIENT NAME: NAVEEN AKINS CSN: [id number] DATE OF : 1940 SEX/AGE: M/77 PATIENT TYPE: I HOSP SVC: LICO LOCATION: [id number] DATE OF SERVICE: 01/14/[address] Venkat Paniagua. INDICATION: SVT. HISTORY OF PRESENT ILLNESS: This is very ill 77-year-old gentleman transferred from [facility] couple days ago. He had an AAA rupture associated with cardiac arrest requiring CPR, but did have return of spontaneous circulation. He had surgery done, but has been on intubation renal replacement therapy, developed possible DIC and has been hypotensive on Levophed. I am asked to see him because he is having recurrent bouts of SVT. He did receive adenosine, did not work well, started on IV amiodarone. Prior cardiac history is uncertain. He had an echo done yesterday which did show EF of 55%. His past medical history is not otherwise particularly available. He was intubated outside before he arrived here. He apparently does have a family history of heart disease. There is no tobacco and no alcohol listed and not much other history can be obtained. HOME MEDICATIONS: His home meds are listed as metoprolol, Maxzide, Lipitor, and aspirin so presumably hyperlipidemia, hypertension. On exam really nothing further to add. He has had a couple bouts of what appeared to be SVT. PHYSICAL EXAMINATION: GENERAL: Ill-appearing gentleman. He is sedated on propofol. VITAL SIGNS: Current pulse is 110, sinus tach, but he has had what appears to be a rapid narrow tachycardia. He is on Levophed and propofol and now IV amiodarone. He has a current blood pressure on pressors of a probable 100 systolic. The mean is about 70. He is intubated. He is sedated, cannot assess neurologic or psychiatric status. He has mild anasarca. ABDOMEN: Has a large wound VAC cannot be assessed. CHEST: Has diffuse rhonchi and rales throughout all lung muro. CARDIAC: Very distant. Heart sounds, very hard to hear, currently regular. Cannot assess murmur or gallop. NECK: Cannot assess JVD or thyromegaly. Carotid upstrokes probably normal. He has a dialysis catheter in the right chest-neck area. EXTREMITIES: His feet and hands are reasonably well perfused. There are no obvious peripheral stigmata of endocarditis or emboli. LABORATORY DATA: Sodium 142, potassium 4.7, BUN 21, creatinine 2.4, hematocrit 36, white count 9, platelets 59. INR 1.5. His EKG yesterday revealed probable SVT at about 150, low voltage, nonspecific ST-T changes. His EKG today this afternoon is now sinus tachycardia, low voltage. I do not see any troponin here. His chest x-ray today reports diffuse infiltrates consistent with pulmonary edema. IMPRESSION: Supraventricular tachycardia, almost certainly related to metabolic milieu, recent surgery, and use of pressors although Levophed is being used, not a major beta agonist. The line for the dialysis catheter does not appear to be causing this. PLAN: 1. IV amiodarone as we are using, this is the best option. He can receive more adenosine. Given his blood pressure, I certainly do not want to use beta or calcium lyric. Given his renal insufficiency, do not want to have to use any digoxin. His EF is fairly normal. Nothing to suggest any current ischemia. 2. Abdominal aortic aneurysm rupture complicated by arrest, renal failure, possible DIC: Status is tenuous at best: Certainly high risk for fatal outcome despite all the efforts by the surgical service. Thank you for this consult. We will follow with you. Gilbert Tucker MD Cardiology DAC:modl /[id number] BLOOD GAS ARTERIAL Collected: 01/13/2018 Status: F Source: [facility] 10:15 PM HEALTH SYSTEM REPOSITORY TYPE CODE TESTS RESULT OUT OF REFERENCE UNITS RANGE LAB FIO2(LOINC % ) FIO2 80 LAB TEMPA(LOIN C) Temperature 37.0 LAB PH(LOINC) 7.350-7.450 pH Arterial 7.359 LAB PCO2(LOINC 36.0-46.0 mm Hg ) PCO2 Arterial 42.0 LAB PO2(LOINC) 85.0-96.0 mm Hg PO2 High Arterial 104.2 LAB HCO3A(LOIN 22.0-26.0 mEq/L C) HCO3- 23.2 LAB O2%A(LOINC 95.0-98.0 % ) O2% Sat Arterial 97.6 LAB BASEX(LOIN -2.5 to 2.5 mEq/L C) Base Excess -2.2 Performed By: #### ABG #### [place] [address] BASIC PANEL Collected: 01/13/2018 Status: F Source: [facility] 10:[facility] REPOSITORY TYPE CODE TESTS RESULT OUT OF REFERENCE UNITS RANGE LAB NA(LOINC) 136-145 mEq/L Sodium Blood 143 LAB K(LOINC) 3.5-5.1 mEq/L Potassium Blood 4.9 LAB CL(LOINC) 98-107 mEq/L Chloride High Blood 112 LAB CO2(LOINC) 21-32 mEq/L CO2 Blood 25 LAB GLU(LOINC) 70-99 mg/dL Glucose Blood 88 LAB BUN(LOINC) 7-18 mg/dL BUN High Blood 23 LAB CREA(LOINC 0.67-1.17 mg/dL ) High Creatinine Blood 2.45 LAB CA(LOINC) 8.5-10.1 mg/dL Low Calcium Blood 6.7 LAB ANGAP(LOIN 8-16 C) Anion Gap 11 Performed By: #### P8 #### [place] [address] PROTIME Collected: 01/13/2018 Status: F Source: [facility] 10:15 HEALTH SYSTEM REPOSITORY TYPE CODE TESTS RESULT OUT OF REFERENCE UNITS RANGE LAB PTI(LOINC) 9.3-11.9 sec Prothrombin High Time 14.8 LAB INR(LOINC) INR 1.46 Result Comment: Standard Therapy 2.0-3.0 High Dose 2.5-3.5 Performed By: #### PT #### [place] [address] LACTIC ACID Collected: 01/13/2018 Status: F Source: [facility] 10:[facility] REPOSITORY TYPE CODE TESTS RESULT OUT OF REFERENCE UNITS RANGE LAB LAC(LOINC) 0.4-2.0 mEq/L High alert Lactic Acid 2.6 Performed By: #### LAC #### [facility] [address] [place] [address] HEMOGRAM Collected: 01/13/2018 Status: F Source: [facility] 10:15 PM HEALTH SYSTEM REPOSITORY TYPE CODE TESTS RESULT OUT OF REFERENCE UNITS RANGE LAB WBC(LOINC) 4.23-9.07 thou/cmm High WBC 11.29 LAB RBC(LOINC) 4.63-6.08 mil/cmm RBC 4.63 LAB HGB(LOINC) 13.7-17.5 g/dL Low Hgb 13.1 LAB HCT(LOINC) 40.1-51.0 % Low Hct 38.8 LAB MCV(LOINC) 83.2-95.6 fl MCV 83.8 LAB MCH(LOINC) 25.7-32.2 pg MCH 28.3 LAB MCHC(LOINC) 32.3-36.5 % MCHC 33.8 LAB RDW(LOINC) 11.6-14.4 % High RDW 17.9 LAB RDWSD(LOINC 36.1-45.8 fl ) High RDW SD 54.5 LAB PLT(LOINC) 141-365 thou/cmm Low Platelet 74 Result Comment: Smear scanned tech agrees with platelet count LAB MPV(LOINC) 8.7-12.0 fl MPV 11.2 Performed By: #### CBC1 #### [facility] [address] [place] [address] ACTIVATED PTT Collected: 01/13/2018 Status: F Source: [facility] 10:15 PM HEALTH SYSTEM REPOSITORY TYPE CODE TESTS RESULT OUT OF REFERENCE UNITS RANGE LAB APTT(LOINC 22.0-34.0 sec ) High Activated PTT 38.7 Performed By: #### APTT #### [facility] [address] [place] [address] PROGRESS Observed: 01/13/2018 Status: COMPLETED Source: [place] 9:35 PM CLINIC OTHER CAMPUS REPOSITORY O ID: [id number] Author: Chente Whittaker Service: Critical Care Author Type: Physician Type: Progress Notes Filed: 01/13/2018 9:50 PM Note Text: MICU - PROGRESS NOTE SERVICE DATE: 01/13/2018 SERVICE TIME: 9:35 PM Admission Date: 01/12/2018 Subjective Called to patients bedside due to worsening tachycardia. On review of EKG and tele, appears to be NSR. Patient appears to remain critically ill, sedated, intubated on mechanical ventilation. Remains on pressors, slight increase in requirements. Started on CVVH this evening. Reviewed documentation. . PMH: PAST MEDICAL HISTORY Diagnosis Date - DIC (disseminated intravascular coagulation) (HCC) 01/12/2018 PSH: PAST SURGICAL HISTORY Procedure Laterality Date - LAP CHOLECYSTECT/CHOLANGIOGRAPHY 05-28-09 - REPAIR UMBILICAL NATAN,5+Y/O,REDUC 05-28-09 FH: FAMILY HISTORY Problem Relation Age of Onset - Coronary Artery Disease Father - None Mother SOCIAL HISTORY: Social History Substance Use Topics - Smoking status: Never Smoker - Smokeless tobacco: Not on file - Alcohol use No OUTPATIENT MEDICATIONS: Prior to Admission Medications: Prescriptions Prior to Admission: metoprolol succinate(TOPROL XL 50 MG 24 HR TAB) Take one(1) tablet daily. Disp: Rfl: 0 01/11/2018 ASPIRIN 325 MG TAB Take one(1) tablet daily. Disp: Rfl: 0 01/11/2018 triamterene/hydrochlorothiazid(DYAZIDE 37.5 MG-25 MG CAP) take one half (1/2) tablet daily Disp: Rfl: 0 01/11/2018 LIPITOR 10 MG TAB Take one(1) tablet daily. Disp: Rfl: 0 01/11/2018 INPATIENT MEDICATIONS: Current hospital medications: propofol infusion (DIPRIVAN) 5-60 mcg/kg/min INTRAVENOUS CONTINUOUS ampicillin-sulbactam 3 g in NaCl 0.9% 100 mL MB+ (UNASYN) 3 g INTRAVENOUS q 6 H NaCl 0.9% 1,000 mL iv bolus 1,000 mL INTRAVENOUS PRN DIALYSIS prismaSOL BGK 4 K / 2.5 mEq Ca/Liter 5,000 mL 5,000 mL HEMODIALYSIS continuous (no dispense) prismaSOL BGK 4 K / 2.5 mEq Ca/Liter 5,000 mL 5,000 mL HEMODIALYSIS continuous (no dispense) prismaSOL BGK 4 K / 2.5 mEq Ca/Liter 5,000 mL 5,000 mL HEMODIALYSIS continuous (no dispense) NaCl 0.45% iv infusion 200 mL/hr INTRAVENOUS CONTINUOUS dextrose 40 % 15 g 15 g ORAL PRN glucagon 1 mg injection (GLUCAGEN) 1 mg INTRAMUSCULAR PRN dextrose 50% in water 25 mL syringe 12.5 g INTRAVENOUS PRN magnesium sulfate 1 g in D5W 100 mL 1 g INTRAVENOUS PRN magnesium sulfate in water 2 g in sterile water 50 ml 2 g INTRAVENOUS PRN fentaNYL 20 mcg/mL iv infusion in NaCl 0.9% 100 mL 25-150 mcg/hr INTRAVENOUS CONTINUOUS pantoprazole 40 mg injection (PROTONIX) 40 mg INTRAVENOUS DAILY (6 AM) NORepinephrine 16 mg in D5W 250 mL (LEVOPHED) 0.6-30 mcg/min INTRAVENOUS CONTINUOUS Chlorhexidine Gluconate 0.12 % 15 mL (PERIDEX) 15 mL ORAL q 12 H perflutren lipid microspheres 1.1 mg/mL 1.3 mL injection (DEFINITY) 1.3 mL INTRAVENOUS PRN(NO DISPENSE) ALLERGIES: ALLERGIES No Known Allergies Objective VITAL SIGNS (last 24hrs min/max): BP 112/58 Pulse 113 Temp 36.2 ?C (97.2 ?F) (Axillary) Resp 18 Ht 172.7 cm (5' 8) Wt 80.1 kg (176 lb 9.4 oz) SpO2 96% BMI 26.85 kg/m? I/O + 5.8L. (1.8L / 24 hrs) Respiratory/Nursing Documentation: O2 Therapy: Ventilator (01/13/182011) Invasive Ventilator Mode: Pressure Regulated Volume Control (01/13/182011) Set Ventilator Respiratory Rate (BPM): 18 (01/13/182011) Total Respiratory Rate (BPM): 18 (01/13/182011) Tidal Volume Set (mL): 500 (01/13/182011) Exhaled Tidal Volume (mL): 505 (01/13/182011) Minute Volume (L): 9 (01/13/182011) Peak Inspiratory Pressure (cm H2O): 24 (01/13/182011) PEEP/CPAP (cm H2O): 8 (01/13/182011) PHYSICAL EXAM PERFORMED: General: intubated, sedated on MV Resp: diminished, coarse mechanical BS b/l, + ETT in place CV: tachycardic,RR, no MGR noted Abd: post-operative abdomen w/ wound vac in place, tense/distended Ext: warm to touch, no cyanosis Neuro: sedated,non-responsive to physical and verbal stimuli NET FLUID BALANCE Intake/Output Summary (Last 24 hours) at 01/13/182134 Last data filed at 01/13/18 194 Gross per 24 hour Intake 9034 ml Output 5931 ml Net 3103 ml DATA: I personally reviewed all imaging and laboratory data below. LABS: Hemoglobin (g/dL) Date Value 11/14/2017 15.0 HGB (g/dL) Date Value 01/13/2018 13.0 Hematocrit (%) Date Value 01/13/2018 38.3 WBC (thou/cmm) Date Value 01/13/2018 10.62 Platelet Count (thou/cmm) Date Value 01/13/2018 56 Glucose (mg/dL) Date Value 01/13/2018 91 Potassium (mEq/L) Date Value 01/13/2018 4.9 Sodium (mEq/L) Date Value 01/13/2018 149 Chloride (mEq/L) Date Value 01/13/2018 117 CO2 (mEq/L) Date Value 01/13/2018 23 Creatinine (mg/dL) Date Value 01/13/2018 2.54 BUN (mg/dL) Date Value 01/13/2018 25 Anion Gap (no units) Date Value 01/13/2018 14 Calcium (mg/dL) Date Value 01/13/2018 6.8 IMAGING: CXR 01/12: IMPRESSION: Lines and tubes as described ? Small layering left pleural effusion ? Left lung base/retrocardiac opacity may reflect atelectasis or infection ? Interstitial prominence, consider interstitial edema, atypical pneumonia or chronic interstitial change CXR 01/13: IMPRESSION: ? Recent placement of central venous catheter without apparent complication. ?Stable ?appearance of heart and lungs. TTE 01/13: LVEF 55% L pleural effusion No gross valvular abnormalities Assessment - Ruptured AAA POD #1 - Recent Cardiac Arrest - Persistent Circulatory Shock - Acute Hypoxic Respiratory Failure on mechanical ventilation - Acute Consumptive/Dilutional Coagulopathy - Encephalopathy - Multifactorial - TERENCE on CKD - Suspected ATN - On CVVH - Lactic Acidosis - Slowly improving - Hypernatremia - Sinus Tachycardia - Thrombocytopenia ? PLANS FOR TODAY: - Recommend continuation of mechanical ventilation, adjust as needed - Wean pressors as tolerated, etiology of persistent shock unclear. ? Post-operative vasoplegia vs. Sepsis. Cardiogenic unlikely given preserved LVEF - Await cultures, started empiric abx given markedly elevated PCT. If cultures negative, repeat PCT in 72 hours and consider discontinuation if markedly reduced - Continue w/ IVF resuscitation - Continue to monitor lactate - Monitor CBC/coags - EEG impressive for severe encephalopathy, no evidence of epileptiform activity/seizures - Recommend formal head imaging when patient more stable - CVVH as per nephrology - Monitor HR, continue with adequate pain control, fever prevention, prn IVF resuscitation. No anti-arrythmics warranted at this time. - SCDs/PPI ? Critical Care Documentation: The patient has the following organ/system impairment(s): Acute blood loss, Acute kidney injury, Circulatory shock, Coagulopathy, Complex life-threatening medical problem(s), Encephalopathy and Respiratory failure (Acute, with Hypoxemia) This patient has a high probability of sudden, clinically significant deterioration, which requires the highest level of physician preparedness to intervene urgently. I managed/supervised life or organ supporting interventions that required frequent physician assessment. I devoted my full attention to the direct care of this patient for the amount of time indicated below. Time I spent with family or surrogate(s) is included only if the patient was incapable of providing the necessary information or participating in medical decision making. Time devoted to teaching is not included. Critical Care Time devoted to this patient is 45 minutes SIGNATURE: Chente Whittaker MD PATIENT NAME: Naveen Akins DATE: January 13, 2018 TIME: 9:35 PM HGB Collected: 01/13/2018 Status: F Source: [facility] 9:20 PM HEALTH SYSTEM REPOSITORY TYPE CODE TESTS RESULT OUT OF RANGE REFERENCE UNITS LAB HGBI(LOINC) 13.7-17.5 g/dL Low Hgb 13.0 Performed By: #### HGBI #### [place] [id number] EKG (AK,AV,EU,FV,HL,CYNTHIA,MM,SP) Observed: Status: F Source: [place] 01/13/2018 8:19 PM [facility] REPOSITORY NAME : NAVEEN AKINS PID : [id number] : 1940 Gender : Male Race : ORD : Procedure Date : Jan 13 2018 20:19 Edit Date : Jan 16 2018 09:04 Diagnosis:SUPRAVENTRICULAR TACHYCARDIA CANNOT RULE OUT ATRIAL FLUTTER LOW VOLTAGE QRS BORDERLINE ECG WHEN COMPARED WITH ECG OF 12-JAN-2018 05:34, VENT. RATE HAS INCREASED BY 66 BPM QRS VOLTAGE HAS DECREASED NON-SPECIFIC CHANGE IN ST SEGMENT IN ANTERIOR LEADS Confirmed by MD ELAM G (2) on 01/16/2018 9:04:43 AM Ventricular Rate : 166 BPM Atrial Rate : 166 BPM P-R Interval : 120 ms QRS Duration : 64 ms Q-T Interval : 276 ms QTC Calculation(Bezet) : 458 ms R [place] : -16 degrees T [place] : 38 degrees Test Reason : Arrhythmia Location : 6 : [place] [address] Overread By : MD ELAM G Editted By : MD ELAM G Referred By : PAULO LOVELACE Acquired by : Indira Silva PROGRESS Observed: 01/13/2018 Status: COMPLETED Source: [place] 7:00 PM [facility] REPOSITORY HNO ID: [id number] Author: Tim (Rn) MAGALY Santacruz Service: Dialysis Author Type: Registered Nurse Type: Progress Notes Filed: 01/13/2018 7:01 PM Note Text: CRRT tx initiated as ordered. Pt tolerating tx well thus far. See flow record for tx data. PHERESED PLATELETS Collected: 01/13/2018 Status: F Source: [facility] 5:24 PM HEALTH SYSTEM REPOSITORY TYPE CODE TESTS RESULT OUT OF REFERENCE UNITS RANGE LAB PPHR(LOINC) Pheresed Plts Done unit 1 Performed By: #### PPHRS #### [facility] [address] [place] [address] CONSULT Observed: 01/13/2018 Status: COMPLETED Source: [place] 5:23 PM [facility] REPOSITORY HNO ID: [id number] Author: Mark Woods Service: General Surgery Author Type: Physician Type: Consults Filed: 01/14/2018 8:54 AM Note Text: GENERAL SURGERY CONSULT ========= GENERAL SURGERY STAFF: I have personally seen and evaluated this patient and participated in the coleman components of this encounter. I discussed the management of this case with the surgery resident team and independently confirmed the findings and plan of care as documented either attached or in their separate note from today. Any corrections or additional notes are made as needed. Active Hospital Problems Diagnosis Date Noted - Ruptured abdominal aortic aneurysm (AAA) ([facility]) 01/12/2018 - Encephalopathy 01/13/2018 - DIC (disseminated intravascular coagulation) ([facility]) 01/12/2018 - Hemorrhagic shock ([facility]) 01/12/2018 - Acute respiratory failure ([facility]) 01/12/2018 - Cardiac arrest ([facility]) 01/12/2018 - Hypernatremia 01/12/2018 - Hypokalemia 01/12/2018 - Hypomagnesemia 01/12/2018 - Hypophosphatemia 01/12/2018 - Hyperchloremia 01/12/2018 - AAA (abdominal aortic aneurysm, ruptured) ([facility]) 01/12/2018 Overview Note: Added automatically from request for surgery [id number] Assessment and Plan: Seen in OR today. No sign of ischemic colon Mark Woods MD, FACS Section of Trauma, Surgery Critical Care, and Acute Care Surgery Pager: [phone] Office: [phone] January 14, 2018 ========= SERVICE DATE: 01/13/2018 SERVICE TIME: 8:02 PM REASON FOR CONSULT: Intra-op eval of bowel REQUESTING PHYSICIAN: Dr. Paniagua PRIMARY CARE PHYSICIAN: Megan Hurst MD Subjective HISTORY OF PRESENT ILLNESS: Mr. Akins is a 77 year old male admitted with Ruptured AAA s/p Emergent Open Repair and take back, washout, repair of serosal tears. Patient is currently in CVICU intubated on Levophed and CVVHD. Abthera in place. PAST MEDICAL HISTORY Diagnosis Date - DIC (disseminated intravascular coagulation) ([facility]) 01/12/2018 PAST SURGICAL HISTORY Procedure Laterality Date - LAP CHOLECYSTECT/CHOLANGIOGRAPHY 05-28-09 - REPAIR UMBILICAL NATAN,5+Y/O,REDUC 05-28-09 FAMILY HISTORY Problem Relation Age of Onset - Coronary Artery Disease Father - None Mother Social History Substance Use Topics - Smoking status: Never Smoker - Smokeless tobacco: Not on file - Alcohol use No Prescriptions Prior to Admission: metoprolol succinate(TOPROL XL 50 MG 24 HR TAB) Take one(1) tablet daily. Disp: Rfl: 0 01/11/2018 ASPIRIN 325 MG TAB Take one(1) tablet daily. Disp: Rfl: 0 01/11/2018 triamterene/hydrochlorothiazid(DYAZIDE 37.5 MG-25 MG CAP) take one half (1/2) tablet daily Disp: Rfl: 0 01/11/2018 LIPITOR 10 MG TAB Take one(1) tablet daily. Disp: Rfl: 0 01/11/2018 Current hospital medications: propofol infusion (DIPRIVAN) 5-60 mcg/kg/min INTRAVENOUS CONTINUOUS ampicillin-sulbactam 3 g in NaCl 0.9% 100 mL MB+ (UNASYN) 3 g INTRAVENOUS q 6 H NaCl 0.9% 1,000 mL iv bolus 1,000 mL INTRAVENOUS PRN DIALYSIS prismaSOL BGK 4 K / 2.5 mEq Ca/Liter 5,000 mL 5,000 mL HEMODIALYSIS continuous (no dispense) prismaSOL BGK 4 K / 2.5 mEq Ca/Liter 5,000 mL 5,000 mL HEMODIALYSIS continuous (no dispense) prismaSOL BGK 4 K / 2.5 mEq Ca/Liter 5,000 mL 5,000 mL HEMODIALYSIS continuous (no dispense) NaCl 0.45% iv infusion 200 mL/hr INTRAVENOUS CONTINUOUS lactated ringers 1,000 mL iv bolus 1,000 mL INTRAVENOUS ONCE dextrose 40 % 15 g 15 g ORAL PRN glucagon 1 mg injection (GLUCAGEN) 1 mg INTRAMUSCULAR PRN dextrose 50% in water 25 mL syringe 12.5 g INTRAVENOUS PRN magnesium sulfate 1 g in D5W 100 mL 1 g INTRAVENOUS PRN magnesium sulfate in water 2 g in sterile water 50 ml 2 g INTRAVENOUS PRN fentaNYL 20 mcg/mL iv infusion in NaCl 0.9% 100 mL 25-150 mcg/hr INTRAVENOUS CONTINUOUS pantoprazole 40 mg injection (PROTONIX) 40 mg INTRAVENOUS DAILY (6 AM) NORepinephrine 16 mg in D5W 250 mL (LEVOPHED) 0.6-30 mcg/min INTRAVENOUS CONTINUOUS Chlorhexidine Gluconate 0.12 % 15 mL (PERIDEX) 15 mL ORAL q 12 H perflutren lipid microspheres 1.1 mg/mL 1.3 mL injection (DEFINITY) 1.3 mL INTRAVENOUS PRN(NO DISPENSE) ALLERGIES No Known Allergies COMPLETE REVIEW OF SYSTEMS: Unable to Obtain ROS Objective PHYSICAL EXAM: GENERAL: No Distress SKIN: Skin color, texture, turgor normal. No rashes or lesions. LUNGS: No resp distress on Vent CARDIAC: mild tachycardia, hypotensive requiring Levo ABDOMEN: S, D, TTP, Abthera intact with SS output, +voluntary guarding EXTREMITIES: +edema, palpable distal pulses, MAK but not following commands NEURO: Sedated, not following commands, Localizes pain The remainder of the physical exam is noncontributory. Pulse 109 Temp 36.2 ?C (97.2 ?F) (Axillary) Resp 17 Ht 172.7 cm (5' 8) Wt 80.1 kg (176 lb 9.4 oz) SpO2 94% BMI 26.85 kg/m? Body mass index is 26.85 kg/m?. DATA: Diagnostic tests reviewed for today's visit: CBC, Coags, BMP, Mg, Phos Recent Labs 01/13/18 1600 01/13/18 1015 01/13/18 0615 01/13/18 0455 01/12/18 1140 WBC 10.62* 11.26* -- 9.99* < > 4.68 HB 13.0* 11.0* -- 11.4* < > 13.0* HCT 38.3* 32.6* -- 33.0* < > 38.4* PLT 56* 64* -- 68* < > 79* INR 1.55 1.59 -- 1.43 < > 1.29 APTT 37.6* 40.9* -- 36.5* < > 32.9 NA 149* 150* -- 152* < > 156* K 4.9 5.1 -- 5.3* < > 2.9* CHLOR 117* 116* -- 118* < > 121* CO2 23 23 -- 23 < > 26 BUN 25* 25* -- 24* < > 17 CREAT 2.54* 2.49* -- 2.15* < > 1.18* GLUC 91 99 -- 91 < > 122* CA 6.8* 6.9* -- 6.7* < > 8.1* MG -- -- 1.3* -- -- 1.4* P -- -- -- 4.8 -- -- < > = values in this interval not displayed. Liver Function, Amylase, AND Lipase Recent Labs 01/13/18 1600 01/13/18 1015 01/13/18 0455 LACT 4.0* 5.5* 6.4* Cardiac Enzymes ABGs Recent Labs 01/13/18 1600 01/13/18 1015 01/13/18 0455 PH 7.370 7.378 7.365 PCO2 39.1 37.7 40.7 PO2 65.2* 77.2* 84.6* BE -2.8 -3.0 -2.4 IMAGING: XR CHEST 1V FRONTAL Final Result XR CHEST 1V FRONTAL Final Result XR CHEST 1V FRONTAL Final Result XR CHEST 1V FRONTAL (Results Pending) Impression/Recommendations with Ruptured AAA s/p Emergent Repair, takeback washout, repair of serosal tears x2, on 01/12, hemorrhagic shock, acute resp failure with pulm edema, TERENCE ? - Vent mgmt per MICU - NPO/IVF - Wean Levo as able - Acute blood loss and dilutional anemia and thrombocytopenia- transfused platelet this evening - q6 labs - Cont Abthera VAC - TERENCE --> CVVHD per Nephro - Unasyn empirically, BCx and RCx pending - OR tomorrow morning --> will be available for possible bowel resection or component separation as needed D/W Dr. Woods SIGNATURE: Dionicio Stevens MD PATIENT NAME: Naveen Akins DATE: January 13, 2018 TIME: 5:23 PM PAGER/CONTACT #: Emergency General Surgery Service Pager: For questions or concerns Tue-Tue 6a-5p please page [phone]. After 5pm and on Weekends and Holidays, please page [phone] if in ICU or [phone] if on RNF. PHERESED PLATELETS Collected: 01/13/2018 Status: F Source: [facility] 5:23 PM HEALTH SYSTEM REPOSITORY TYPE CODE TESTS RESULT OUT OF REFERENCE UNITS RANGE LAB PPHR(LOINC) Pheresed Plts Done unit 1 Performed By: #### PPHRS #### [facility] [address] [place] [address] CASE MGT INIT Observed: 01/13/2018 Status: COMPLETED [facility] OTHER CAMPUS REPOSITORY HNO ID: [id number] Author: Lorrie (Rn) MAGALY Bo Service: (none) Author Type: Registered Nurse Type: Care Mgt Initial Assessment Filed: 01/13/2018 5:00 PM Note Text: CARE MANAGEMENT: ASSESSMENT AND DISCHARGE PLAN SERVICE DATE: 01/13/2018 SERVICE TIME: 4:46 PM PRIMARY CARE PHYSICIAN: Megan Hurst MD ADMISSION STATUS: Inpatient MEDICAL: Patient/Continuing Education Director Stated Goals: pt intubated, family hopeful for recovery Health Insurance: N/A . Health Issues Impacting Discharge Plan: None Last Admission Date: none Is this Within the Past 30 days? No Advance Directive: None on file Health Literacy: 1. How often do you need to have someone help you when you read instructions, pamphlets, or other written material from your doctor or pharmacy? Never - 1 2. How confident are you filling out medical forms by yourself? Extremely - 1 If Patient scores > 3 on either question, the following interventions were put into place: Patient did not score > 3 FUNCTIONAL AND COGNITIVE/BEHAVIORAL PRIOR TO ADMISSION: Baseline Mental Status: Alert AND Oriented, Person, Place , Time and Situation Functional Status: Independent Does Patient Currently Receive Any Community Services or Home Care? None Equipment Prior to Admission: recent knee replacement, walking ind and gradudated from therapy Has the Patient Been in a Prison Facility in the Past 30 days? 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 Yes Patient's transition needs and plan for meeting these needs: extubation Does the patient have an acute stroke diagnosis, or has the patient had a stroke during this admission? No Medication Adherence: I am convinced of the importance of my prescription medication: Agree completely - 0 I worry that my prescription medication will do more harm than good to me Disagree mostly - 0 I feel financially burdened by my apt-du-unvpoh expenses for my prescription medication: Disagree mostly -0 Patient is categorized as low risk < 2 Are you interested in bedside delivery of your medications? No Food Concerns: In the Last Month, Have You had Trouble Getting Food? No trouble getting food During the Last Month, Have You Worried Whether Your Food Would Run Out Before You Had Enough Money to Buy More? No Is the Patient Psychosocially Complex? No ASSESSMENT AND PLAN: Medical Needs: None Psychosocial Needs: None FREEDOM OF CHOICE EXPLAINED: N/A POTENTIAL TRANSITION PLANS To Be Determined [facility] from [place] .Ruptured AAA s/p Emergent Repair, takeback washout, repair of serosal tears x2 POD#1, hemorrhagic shock, acute resp failure with pulm edema, TERENCE Pt intubated, sedated. Emotional support to dght and grandchildren at bedside. He has four children. Will follow for transitional needs an SIGNATURE: Lorrie Bo RN PATIENT NAME: Naveen Akins DATE: January 13, 2018 TIME: 4:45 PM PAGER/CONTACT #: [phone] BLOOD GAS ARTERIAL Collected: 01/13/2018 Status: F Source: [facility] 4:00 PM HEALTH SYSTEM REPOSITORY TYPE CODE TESTS RESULT OUT OF REFERENCE UNITS RANGE LAB FIO2(LOINC % ) FIO2 Value Not Given LAB TEMPA(LOIN C) Temperature 37.0 LAB PH(LOINC) 7.350-7.450 pH Arterial 7.370 LAB PCO2(LOINC 36.0-46.0 mm Hg ) PCO2 Arterial 39.1 LAB PO2(LOINC) 85.0-96.0 mm Hg Low PO2 Arterial 65.2 LAB HCO3A(LOIN 22.0-26.0 mEq/L C) HCO3- 22.1 LAB O2%A(LOINC 95.0-98.0 % ) Low O2% Sat Arterial 93.9 LAB BASEX(LOIN -2.5 to 2.5 mEq/L C) Base Excess -2.8 Performed By: #### ABG #### [facility] [address] [place] [address] HEMOGRAM Collected: 01/13/2018 Status: F Source: [facility] 4:00 HEALTH SYSTEM REPOSITORY TYPE CODE TESTS RESULT OUT OF REFERENCE UNITS RANGE LAB WBC(LOINC) 4.23-9.07 thou/cmm High WBC 10.62 LAB RBC(LOINC) 4.63-6.08 mil/cmm Low RBC 4.62 LAB HGB(LOINC) 13.7-17.5 g/dL Low Hgb 13.0 LAB HCT(LOINC) 40.1-51.0 % Low Hct 38.3 LAB MCV(LOINC) 83.2-95.6 fl Low MCV 82.9 LAB MCH(LOINC) 25.7-32.2 pg MCH 28.1 LAB MCHC(LOINC) 32.3-36.5 % MCHC 33.9 LAB RDW(LOINC) 11.6-14.4 % High RDW 17.5 LAB RDWSD(LOINC 36.1-45.8 fl ) High RDW SD 53.1 LAB PLT(LOINC) 141-365 thou/cmm Low Platelet 56 LAB MPV(LOINC) 8.7-12.0 fl MPV 11.2 Performed By: #### CBC1 #### [facility] [address] [place] [id number] BASIC PANEL Collected: 01/13/2018 Status: F Source: [facility] 4:00 HEALTH SYSTEM REPOSITORY TYPE CODE TESTS RESULT OUT OF REFERENCE UNITS RANGE LAB NA(LOINC) 136-145 mEq/L Sodium High Blood 149 LAB K(LOINC) 3.5-5.1 mEq/L Potassium Blood 4.9 LAB CL(LOINC) 98-107 mEq/L Chloride High Blood 117 LAB CO2(LOINC) 21-32 mEq/L CO2 Blood 23 LAB GLU(LOINC) 70-99 mg/dL Glucose Blood 91 LAB BUN(LOINC) 7-18 mg/dL BUN High Blood 25 LAB CREA(LOINC 0.67-1.17 mg/dL ) High Creatinine Blood 2.54 LAB CA(LOINC) 8.5-10.1 mg/dL Low Calcium Blood 6.8 LAB ANGAP(LOIN 8-16 C) Anion Gap 14 Performed By: #### P8 #### [place] [address] FIBRINOGEN Collected: 01/13/2018 Status: F Source: [facility] 4:00 PM HEALTH SYSTEM REPOSITORY TYPE CODE TESTS RESULT OUT OF REFERENCE UNITS RANGE LAB FIB(LOINC) 180-430 mg/dl Fibrinogen 371 Performed By: #### FIB #### [place] [address] PROTIME Collected: 01/13/2018 Status: F Source: [facility] 4:00 PM HEALTH SYSTEM REPOSITORY TYPE CODE TESTS RESULT OUT OF REFERENCE UNITS RANGE LAB PTI(LOINC) 9.3-11.9 sec Prothrombin High Time 16.0 LAB INR(LOINC) INR 1.55 Result Comment: Standard Therapy 2.0-3.0 High Dose 2.5-3.5 Performed By: #### PT #### [place] [address] ACTIVATED PTT Collected: 01/13/2018 Status: F Source: [facility] 4:00 HEALTH SYSTEM REPOSITORY TYPE CODE TESTS RESULT OUT OF REFERENCE UNITS RANGE LAB APTT(LOINC 22.0-34.0 sec ) High Activated PTT 37.6 Performed By: #### APTT #### [place] [address] LACTIC ACID Collected: 01/13/2018 Status: F Source: [facility] 4:00 PM HEALTH SYSTEM REPOSITORY TYPE CODE TESTS RESULT OUT OF REFERENCE UNITS RANGE LAB LAC(LOINC) 0.4-2.0 mEq/L High alert Lactic Acid 4.0 Performed By: #### LAC #### [place] [address] RBC PRODUCTS Collected: 01/13/2018 Status: F Source: [facility] 2:08 PM HEALTH SYSTEM REPOSITORY TYPE CODE TESTS RESULT OUT OF REFERENCE UNITS RANGE LAB UNIT1(LOINC ) Xmatch Unit 1 see below Result Comment: Compatible LAB UNIT2(LOINC) Xmatch Unit 2 see below Result Comment: Compatible Performed By: #### RBCPS #### [place] [address] PROGRESS Observed: 01/13/2018 Status: COMPLETED Source: [place] 12:07 PM CLINIC OTHER CAMPUS REPOSITORY HNO ID: [id number] Author: Wai Barcenas Service: Cardiovascular Medicine Author Type: Nurse Practitioner Type: Progress Notes Filed: 01/13/2018 1:15 PM Note Text: CARDIOVASCULAR SURGERY POSTOP PROGRESS NOTE SERVICE DATE: 01/13/2018 SERVICE TIME: 12:08 PM Subjective S/P SURGERY: Procedure(s) (LRB): EXPLORATION, CONTROL OF BLEEDING, APPLICATION ABTHERA WOUND VAC (N/A) DATE OF SURGERY: 01/12/2018 POSTOP DAY # 1 LOS: 1 INTERVAL EVENTS / PERTINENT ROS: Levo requirements are the same. Has put out 1500mL of fluid into abdominal wound vac. Has received 4L total of IVF boluses since 3 am. Objective Admission Weight: 80.1 kg (176 lb 9.4 oz) Pulse 107 Temp 36.2 ?C (97.2 ?F) (Axillary) Resp 18 Ht 172.7 cm (5' 8) Wt 80.1 kg (176 lb 9.4 oz) SpO2 95% BMI 26.85 kg/m? Body surface area is 1.96 meters squared. Min/Max/Average Temperature AND Blood Pressure: Temp (24hrs), Av.9 ?C (96.7 ?F), Min:31.6 ?C (88.9 ?F), Max:38.3 ?C (100.9 ?F) Intake/Output Summary (Last 24 hours) at 01/13/18 1208 Last data filed at 01/13/18 1000 Gross per 24 hour Intake 9707 ml Output 7185 ml Net 2522 ml TELEMETRY: sinus tachycardia PHYSICAL EXAM: General Appearance: Intubated, sedated Skin: warm and dry Lungs: decreased breath sounds and respiratory effort: normal Heart: regular rhythm and S1, S2 normal Abdomen: soft, tender and open abdomen with wound vac attached with serosanguinous output. Genitourinary: Sanchez intact, urine color is clear yellow Extremities: edema: 2+ Lines, Drains, and Airways Line Peripheral Admission to Hospital Left Antecubital 18 Gauge -- days Arterial Line 01/12/18 0238 Arterial Line Left Brachial 1 day Central Line Double Lumen 01/12/18 0239 Right Neck 1 day Dialysis / Apheresis Double Lumen 01/13/18 1136 Left Neck less than 1 day Drain Drain/Tube 01/12/18 0100 Hemovac Midline Anterior Abdomen 1 day Drain/Tube 01/12/18 Fecal Management System 1 day GI Feed/Drain 01/12/18 0100 1 day Indwelling Urinary Catheter 01/12/18 1108 Assessment Temperature Monitoring 16 Fr 1 day Airway Airway Endotracheal Tube 01/12/18 1138 1 day DATA: Diagnostic tests reviewed for today's visit: Recent Labs 01/13/18 1015 01/13/18 0615 01/13/18 0455 01/12/18 2255 01/12/18 1830 01/12/18 1140 01/12/18 1005 RBC 3.92* -- 3.99* 3.86* 4.28* -- 4.55* < > -- WBC 11.26* -- 9.99* 4.62 3.88* -- 4.68 < > -- HB 11.0* -- 11.4* 10.9* 12.0* -- 13.0* -- -- HCT 32.6* -- 33.0* 31.9* 35.5* -- 38.4* -- -- PLT 64* -- 68* 76* 81* -- 79* < > -- INR 1.59 -- 1.43 1.41 -- -- 1.29 -- 1.45 APTT 40.9* -- 36.5* 34.9* -- -- 32.9 -- 40.2* NA 150* -- 152* 153* -- < > 156* -- -- K 5.1 -- 5.3* 4.6 -- < > 2.9* -- -- CHLOR 116* -- 118* 119* -- < > 121* -- -- CO2 23 -- 23 25 -- < > 26 -- -- BUN 25* -- 24* 22* -- < > 17 -- -- CREAT 2.49* -- 2.15* 1.89* -- < > 1.18* -- -- GLUC 99 -- 91 78 -- < > 122* -- -- ICAL -- -- 4.37* -- 4.43 -- -- -- 4.69 CA 6.9* -- 6.7* 7.6* -- < > 8.1* -- -- MG -- 1.3* -- -- -- -- 1.4* -- -- P -- -- 4.8 -- -- -- -- -- -- ANION 16 -- 16 14 -- < > 12 -- -- < > = values in this interval not displayed. Recent Labs 01/13/18 1015 01/13/18 0455 01/12/18 2255 PH 7.378 7.365 7.382 PCO2 37.7 40.7 39.3 PO2 77.2* 84.6* 176.7* BE -3.0 -2.4 -1.9 Assessment/Plan 77 yo male with Ruptured AAA s/p Emergent Repair, takeback washout, repair of serosal tears x2 POD#1, hemorrhagic shock, acute resp failure with pulm edema, TERENCE -Fluid resuscitation ongoing. Keep I=O -Levo requirements are the same. Wean to keep MAP >65 -Monitor CBC -TERENCE discussed with Dr. Lorenzo; CRRT to start today. HD line in place. -Hypomagnesemia being replaced -Echo pending. -EEG in progress. -Plan of care discussed with Dr. Paniagua and Dr. Granda SIGNATURE: Wai Barcenas APRN.CNP PATIENT NAME: Naveen Akins DATE: January 13, 2018 TIME: 12:08 PM PAGER/CONTACT #: [phone] ETX [id number] PROCEDURE Observed: 01/13/2018 Status: COMPLETED Source: [place] 11:38 AM CLINIC OTHER CAMPUS REPOSITORY O ID: [id number] Author: Shen Lorenzo Service: Nephrology Author Type: Physician Type: Procedures Filed: 01/13/2018 12:27 PM Note Text: BEDSIDE PROCEDURE NOTE DIALYSIS CATHETER Date/Start Time: 01/13/2018 11:39 AM Performed by: SHEN LORENZO Authorized by: SHEN LORENZO Consent/Burt Protocol Written Consent Obtained: Yes Sign In Communication: Completed Time Out completed: Team confirms correct patient, procedure, side/site, position (if applicable) and completion AND review of fire risk assessment/protocols (if appropriate) Affirmation of Time Out: Yes Sign Out Discussion: Yes Pre-procedure Details: Personnel directly involved with the procedure wore the appropriate PPE. PPE Used: Sterile gloves, sterile gown, mask, cap and goggles The area was prepped with chlorhexidine (Chloroprep) and allowed to dry. A sterile full body drape was applied following the usual aseptic technique. Usual aseptic technique was not followed due to clinical factors necessitating an emergent procedure [facility] Central Line Insertion Checklist Utilized: yes Medications: Local anesthesia Local Anesthesia (see MAR): Lidocaine 1% Procedure Details: Indication: Hemodialysis Patient Position: Flat Site: Left internal jugular vein New Stick: The vessel was cannulated under direct ultrasound visualization with a single lumen catheter. Line Transduced: No A small skin incision was made and the tract was sequentially dilated with semi-rigid tissue dilators. A 20cm dual lumen, 14 Fr, non-tunneled catheter was advanced over the guidewire and left in situ while the guidewire was removed. Assessment: Blood return through all ports A sterile, transparent, occlusive dressing was placed over the site. Post-procedure X-ray: Pending All catheters, needles, and wires were accounted for and intact Number of attempts: 1 Successful Placement: Yes Post-procedure Details: Patient tolerated the procedure well with no immediate complications Estimated Blood Loss: Scant Specimens Sent: None 01/13/19 (12:30): CXR reviewed. No PTX. Tip of line in SVC. OK to use line. SIGNATURE: Rosanna Talbert MD PATIENT NAME: Naveen Akins DATE: January 13, 2018 TIME: 11:38 AM PAGER/CONTACT #: CHEST 1 VIEW Observed: 01/13/2018 Status: F Source: [facility] 11:34 AM HEALTH SYSTEM REPOSITORY Performed at [facility] APPROVED BY: Yajaira Veronica MD EXAM TITLE: CHEST 1 VIEW DATE: 01/13/2018 11:24 INDICATION: Recent central venous catheter placement COMPARISON: 01/13/2018 at 0429 hours FINDINGS: There has been placement of a left internal jugular central venous catheter whose tip is at the superior vena cava. The endotracheal tube, esophagogastric tube, and right central venous tim ter are stable. There is continued diffuse airspace disease. There is no visible pneumothorax. Heart is not significantly enlarged. A portion of a intramedullary jerry is noted at the proximal left humerus. IMPRESSION: Recent placement of central venous catheter without apparent complication. Stable appearance of heart and lungs. CONSULT Observed: 01/13/2018 Status: COMPLETED Source: [place] 11:15 AM CLINIC OTHER CAMPUS REPOSITORY O ID: [id number] Author: Shen Lorenzo Service: Nephrology Author Type: Physician Type: Consults Filed: 01/13/2018 11:38 AM Note Text: [facility] [address] [place], [place] [id number] Consult Note Patient's Name: Naveen Akins 11:16 AM 01/13/2018 Reason for Consult: TERENCE ATTENDING/ADMITTING PHYSICIAN:Venkat Paniagua History of Present Ilness: Naveen Akins is a 77 year old male with past history of CAD (remote PCI/stent placement) and HTN who is admitted with ruptured AAA yesterday. Pt was life flight from [place] ED where ruptured AAA was diagnosed. Pt did suffer massive blood loss because of ruptured aorta. He went directly to OR yesterday for repair of AAA rupture. Asked to see pt because of TERENCE. SCr has increased from 1.18 mg/dL on 01/12/18 at 11:40 to 2.49 mg/dL at 10:15 today. Pt is anuric and is still requiring 35 mcg/min of NE gtt. Pt is currently intubated and sedated and cannot provide history. The chart was extensively reviewed. Also discussed with Dr. Granda, Wai Barcenas, INDEPENDENT SALES REPRESENTATIVE, and Bedside RN (Jose). PAST MEDICAL HISTORY Diagnosis Date - DIC (disseminated intravascular coagulation) (HCC) 01/12/2018 PAST SURGICAL HISTORY Procedure Laterality Date - LAP CHOLECYSTECT/CHOLANGIOGRAPHY 05-28-09 - REPAIR UMBILICAL NATAN,5+Y/O,REDUC 05-28-09 FAMILY HISTORY Problem Relation Age of Onset - Coronary Artery Disease Father - None Mother reports that he has never smoked. He does not have any smokeless tobacco history on file. He reports that he does not drink alcohol or use drugs. Allergies: Patient has no known allergies. Current Medications: Current Facility-Administered Medications: propofol infusion (DIPRIVAN) 5-60 mcg/kg/min INTRAVENOUS CONTINUOUS ampicillin-sulbactam 3 g in NaCl 0.9% 100 mL MB+ (UNASYN) 3 g INTRAVENOUS q 6 H NaCl 0.45% iv infusion 150 mL/hr INTRAVENOUS CONTINUOUS dextrose 40 % 15 g 15 g ORAL PRN Or glucagon 1 mg injection (GLUCAGEN) 1 mg INTRAMUSCULAR PRN Or dextrose 50% in water 25 mL syringe 12.5 g INTRAVENOUS PRN magnesium sulfate 1 g in D5W 100 mL 1 g INTRAVENOUS PRN magnesium sulfate in water 2 g in sterile water 50 ml 2 g INTRAVENOUS PRN fentaNYL 20 mcg/mL iv infusion in NaCl 0.9% 100 mL 25-150 mcg/hr INTRAVENOUS CONTINUOUS pantoprazole 40 mg injection (PROTONIX) 40 mg INTRAVENOUS DAILY (6 AM) NORepinephrine 16 mg in D5W 250 mL (LEVOPHED) 0.6-30 mcg/min INTRAVENOUS CONTINUOUS Chlorhexidine Gluconate 0.12 % 15 mL (PERIDEX) 15 mL ORAL q 12 H perflutren lipid microspheres 1.1 mg/mL 1.3 mL injection (DEFINITY) 1.3 mL INTRAVENOUS PRN(NO DISPENSE) Review of Systems: 10 ROS negative other than stated above Physical exam: Pulse 107 Temp 36.2 ?C (97.2 ?F) (Axillary) Resp 18 Ht 172.7 cm (5' 8) Wt 80.1 kg (176 lb 9.4 oz) SpO2 95% BMI 26.85 kg/m? General: Sedated. On mechanical ventilator. HEENT: Atraumatic, normocephalic, Intubated. Eyes: Pupils equal, round and reactive to light. Neck: No JVD, no thyromegaly, no lymphadenopathy. Chest: Coarse BS bilaterally. Cardiac: S1 S2 RR, no murmurs, gallops or rubs, JVP not raised. Abdomen: Wound vac in place. Abdomen is soft. Neuro: Sedated, No FND. SKIN: No rashes, good skin turgor. Extremities: No edema. Labs: Recent Labs 01/13/18 1015 01/13/18 0455 01/12/18 2255 WBC 11.26* 9.99* 4.62 HCT 32.6* 33.0* 31.9* MCV 83.2 82.7* 82.6* PLT 64* 68* 76* Recent Labs 01/13/18 1015 01/13/18 0615 01/13/18 0455 01/12/18 2255 01/12/18 1140 NA 150* -- 152* 153* < > 156* K 5.1 -- 5.3* 4.6 < > 2.9* CO2 23 -- 23 25 < > 26 MG -- 1.3* -- -- -- 1.4* BUN 25* -- 24* 22* < > 17 CREAT 2.49* -- 2.15* 1.89* < > 1.18* CA 6.9* -- 6.7* 7.6* < > 8.1* < > = values in this interval not displayed. Input / Output: 24 HR: Intake/Output Summary (Last 24 hours) at 01/13/18 1116 Last data filed at 01/13/18 1000 Gross per 24 hour Intake 9707 ml Output 7685 ml Net 2022 ml Assessment and Plan 1. Acute kidney injury on chronic kidney disease stage 3. Baseline SCr is 1.36 mg/dL on 11/14/17. CKD is likely due to nephrosclerosis related to PAD. TERENCE is 2/2 ischemic ATN from hemorrhagic shock. Pt is anuric with increased pressor requirement. D/w resident advisor, I agree that the pt will benefit from CRRT as renal function will likely get worse today with ongoing need for pressor. Will place dialysis line and start CRRT. Consent obtained from pt's . 2. Shock. Likely hemorrhagic shock-massive blood loss from ruptured AAA. Currently requiring pressor. Ongoing volume resuscitation. I will not remove fluid with CRRT. In fact, he can be made positive (I/O) by continuing fluid. 3. Hypernatremia. Dehydration from volume loss. Doubt other causes. Still requiring isotonic fluid because of shock. Na should stabilize with CRRT. 4. Hyperkalemia. Mild. 2/2 TERENCE. Will stabilize with CRRT. 5. Ruptured AAA. s/p repair 01/12/18. Management as per vascular surgery. 6. Acute hypoxic respiratory failure. Ventilator dependent. Vent management as per . Thank you for allowing me to participate in care of Naveen Akins. Please do not hesitate to contact me at [phone] with any concerns. Rosanna Talbert MD, (Shen Lorenzo) CONSULT PROG Observed: 01/13/2018 Status: COMPLETED Source: [place] 11:12 AM CLINIC OTHER CAMPUS REPOSITORY HNO ID: [id number] Author: Elder Granda Service: Critical Care Author Type: Physician Type: Consult Progress Note Filed: 01/14/2018 7:44 AM Note Text: ICU - PROGRESS NOTE SERVICE DATE: 01/13/2018 SERVICE TIME: 11:13 AM Admission Date: 01/12/2018 AGE: [id number] year old LOS: 1 days Subjective REASON FOR ICU ADMISSION: AAA rupture s/p repair ROS not possible 2/2 mental status. Overnight developed episodes of jerky movements, his BP dropped and requires vasopressors. Significant bloody output 3.7L in wound vac. No urine output. Objective VITAL SIGNS (last 24hrs min/max): Temp Av.2 ?C (95.4 ?F) Min: 29.9 ?C (85.8 ?F) Max: 38.3 ?C (100.9 ?F) Pulse Av.6 Min: 77 Max: 121 Arterial BP 1 Min: 81/45 Max: 195/114 Cuff No Data Recorded Pain Score: 4/10 Vital signs reviewed. Pulse 107 Temp (Src) 97.2 (Axillary) Resp 18 Ht 5' 8 (1.73m) Wt 176 lb 9.4 oz (80.1kg) SpO2 95% BMI 26.86 kg/(m2). Temp (24hrs), Av.2 ?C (95.4 ?F), Min:29.9 ?C (85.8 ?F), Max:38.3 ?C (100.9 ?F) NET FLUID BALANCE Intake/Output Summary (Last 24 hours) at 01/13/18 1113 Last data filed at 01/13/18 1000 Gross per 24 hour Intake 9707 ml Output 7685 ml Net 2022 ml MEDICATIONS Current Facility-Administered Medications: propofol infusion (DIPRIVAN) 5-60 mcg/kg/min INTRAVENOUS CONTINUOUS ampicillin-sulbactam 3 g in NaCl 0.9% 100 mL MB+ (UNASYN) 3 g INTRAVENOUS q 6 H NaCl 0.45% iv infusion 150 mL/hr INTRAVENOUS CONTINUOUS dextrose 40 % 15 g 15 g ORAL PRN Or glucagon 1 mg injection (GLUCAGEN) 1 mg INTRAMUSCULAR PRN Or dextrose 50% in water 25 mL syringe 12.5 g INTRAVENOUS PRN magnesium sulfate 1 g in D5W 100 mL 1 g INTRAVENOUS PRN magnesium sulfate in water 2 g in sterile water 50 ml 2 g INTRAVENOUS PRN fentaNYL 20 mcg/mL iv infusion in NaCl 0.9% 100 mL 25-150 mcg/hr INTRAVENOUS CONTINUOUS pantoprazole 40 mg injection (PROTONIX) 40 mg INTRAVENOUS DAILY (6 AM) NORepinephrine 16 mg in D5W 250 mL (LEVOPHED) 0.6-30 mcg/min INTRAVENOUS CONTINUOUS Chlorhexidine Gluconate 0.12 % 15 mL (PERIDEX) 15 mL ORAL q 12 H perflutren lipid microspheres 1.1 mg/mL 1.3 mL injection (DEFINITY) 1.3 mL INTRAVENOUS PRN(NO DISPENSE) Lines, Drains, and Airways Line Peripheral Admission to Hospital Left Antecubital 18 Gauge -- days Arterial Line 01/12/18 0238 Arterial Line Left Brachial 1 day Central Line Double Lumen 01/12/18 0239 Right Neck 1 day Drain Drain/Tube 01/12/18 0100 Hemovac Midline Anterior Abdomen 1 day Drain/Tube 01/12/18 Fecal Management System 1 day GI Feed/Drain 01/12/18 0100 1 day Indwelling Urinary Catheter 01/12/18 1108 Assessment Temperature Monitoring 16 Fr 1 day Airway Airway Endotracheal Tube 01/12/18 1138 less than 1 day PHYSICAL EXAM PERFORMED: Constitutional: Lying in bed, appears in pain HEENT: IJ and ET tube noted Cardiovascular: Regular rhythm Respiratory: b/l breath sounds equal %FIO2 Min: 60 Max: 100 Abdomen: Wound Vac in place, abdomen open Extremities: Edema- No, Extremities cold Neurologic: Sedated Respiratory/Nursing Documentation: O2 Therapy: Ventilator (01/13/18 1000) Invasive Ventilator Mode: Pressure Regulated Volume Control (01/13/18908) Set Ventilator Respiratory Rate (BPM): 18 (01/13/18908) Total Respiratory Rate (BPM): 22 (01/13/18908) Tidal Volume Set (mL): 500 (01/13/18908) Exhaled Tidal Volume (mL): 521 (01/13/18908) Minute Volume (L): 11.3 (01/13/18908) Peak Inspiratory Pressure (cm H2O): 17 (01/13/18908) PEEP/CPAP (cm H2O): 11 (01/13/18908) HEMODYNAMIC DATA: Reviewed NUTRITION: Enteral Feeds: No NPO DATA: Diagnostic tests reviewed for today's visit, films/specimens were personally reviewed by me: Most recent labs and imaging results. LABS: Recent Labs 01/13/18 1015 01/13/18 0615 01/13/18 0455 WBC 11.26* -- 9.99* RBC 3.92* -- 3.99* HB 11.0* -- 11.4* HCT 32.6* -- 33.0* MCV 83.2 -- 82.7* PLT 64* -- 68* GLUC 99 -- 91 BUN 25* -- 24* CREAT 2.49* -- 2.15* NA 150* -- 152* K 5.1 -- 5.3* CHLOR 116* -- 118* CO2 23 -- 23 CA 6.9* -- 6.7* PTSEC -- -- 14.7* APTT -- -- 36.5* INR -- -- 1.43 MG -- 1.3* -- ABG: Recent Labs 01/13/18 1015 01/13/18 0455 01/12/18 2255 PH 7.378 7.365 7.382 PO2 77.2* 84.6* 176.7* PCO2 37.7 40.7 39.3 Assessment/Plan IMPRESSION: Critical Care Documentation: The patient has the following organ/system impairment(s): Acute blood loss, Circulatory shock, Coagulopathy and Respiratory failure (Acute, with Hypoxemia) 77 year old male with PMH of AAA who was transferred to [facility] in shock 2/2 ruptured AAA c/b cardiac arrest s/p CPR and ROSC and s/p abdominal washout, repacking and repair of serosal tears x2. Hemorrhagic shock, currently back on pressors. 3.7L output in wound vac. Received multiple units of pRBC, platelets, cryo, FFP as part of massive transfusion protocol on 01/12. IV fluids maintenance and bolus ongoing. Acute hypoxic respiratory failure 2/2 pulmonary edema in the setting of massive transfusion. ?Left sided infiltrate, on Unasyn. Sputum pending. Intubated and mechanically ventilated Non anion gap metabolic acidosis 2/2 above Acute blood loss anemia ATN [facility], likely in the setting of multiorgan failure PLAN: Continue lung protective mechanical ventilation, not a candidate for SAT and SBT due to multiorgan failure. Wean FiO2 as able, target SpO2 > 92. Continue IV fluid bolus, blood products as necessary Monitor CBC, coags, hemodynamics, I-Os F/u ECHO F/u Bedside EEG F/u Cx and continue ABx Increase fentanyl for adequate pain control Nephro recs, suspect CRRT Wound Vac and AAA recs per vascular Rest per ICU team This patient has a high probability of sudden, clinically significant deterioration, which requires the highest level of physician preparedness to intervene urgently. I managed/supervised life or organ supporting interventions that required frequent physician assessment. I devoted my full attention to the direct care of this patient for the amount of time indicated below. Time I spent with family or surrogate(s) is included only if the patient was incapable of providing the necessary information or participating in medical decision making. Time devoted to teaching is not included. Discussed with staff/patient/family Time spent providing critical care services: 35 minutes excluding procedures. SIGNATURE: Elder Granda MD PATIENT NAME: Naveen Akins DATE: January 13, 2018 TIME: 11:13 AM BLOOD GAS ARTERIAL Collected: 01/13/2018 Status: F Source: [facility] 10:15 AM HEALTH SYSTEM REPOSITORY TYPE CODE TESTS RESULT OUT OF REFERENCE UNITS RANGE LAB FIO2(LOINC % ) FIO2 Value Not Given LAB TEMPA(LOIN C) Temperature 37.0 LAB PH(LOINC) 7.350-7.450 pH Arterial 7.378 LAB PCO2(LOINC 36.0-46.0 mm Hg ) PCO2 Arterial 37.7 LAB PO2(LOINC) 85.0-96.0 mm Hg Low PO2 Arterial 77.2 LAB HCO3A(LOIN 22.0-26.0 mEq/L C) Low HCO3- 21.7 LAB O2%A(LOINC 95.0-98.0 % ) O2% Sat Arterial 95.6 LAB BASEX(LOIN -2.5 to 2.5 mEq/L C) Base Excess -3.0 Performed By: #### ABG #### [facility] [address] [place] [address] HEMOGRAM Collected: 01/13/2018 Status: F Source: [facility] 10:15 AM HEALTH SYSTEM REPOSITORY TYPE CODE TESTS RESULT OUT OF REFERENCE UNITS RANGE LAB WBC(LOINC) 4.23-9.07 thou/cmm High WBC 11.26 LAB RBC(LOINC) 4.63-6.08 mil/cmm Low RBC 3.92 LAB HGB(LOINC) 13.7-17.5 g/dL Low Hgb 11.0 LAB HCT(LOINC) 40.1-51.0 % Low Hct 32.6 LAB MCV(LOINC) 83.2-95.6 fl MCV 83.2 LAB MCH(LOINC) 25.7-32.2 pg MCH 28.1 LAB MCHC(LOINC) 32.3-36.5 % MCHC 33.7 LAB RDW(LOINC) 11.6-14.4 % High RDW 18.1 LAB RDWSD(LOINC 36.1-45.8 fl ) High RDW SD 55.4 LAB PLT(LOINC) 141-365 thou/cmm Low Platelet 64 LAB MPV(LOINC) 8.7-12.0 fl MPV 10.6 Performed By: #### CBC1 #### [place] [address] BASIC PANEL Collected: 01/13/2018 Status: F Source: [facility] 10:15 PENDING SALE TO [facility] REPOSITORY TYPE CODE TESTS RESULT OUT OF REFERENCE UNITS RANGE LAB NA(LOINC) 136-145 mEq/L Sodium High Blood 150 LAB K(LOINC) 3.5-5.1 mEq/L Potassium Blood 5.1 LAB CL(LOINC) 98-107 mEq/L Chloride High Blood 116 LAB CO2(LOINC) 21-32 mEq/L CO2 Blood 23 LAB GLU(LOINC) 70-99 mg/dL Glucose Blood 99 LAB BUN(LOINC) 7-18 mg/dL BUN High Blood 25 LAB CREA(LOINC 0.67-1.17 mg/dL ) High Creatinine Blood 2.49 LAB CA(LOINC) 8.5-10.1 mg/dL Low Calcium Blood 6.9 LAB ANGAP(LOIN 8-16 C) Anion Gap 16 Performed By: #### P8 #### [place] [address] CREATININE,URINE Collected: 01/13/2018 Status: F Source: [place] 10:15 [facility] REPOSITORY TYPE CODE TESTS RESULT OUT OF RANGE REFERENCE UNITS LAB CREAU(LOINC mg/dL ) 35.9 Creatinine,U rine Performed By: #### CREAU #### [address] [place] [address] SODIUM,URINE Collected: 01/13/2018 Status: F Source: [facility] 10:15 AM HEALTH SYSTEM REPOSITORY TYPE CODE TESTS RESULT OUT OF RANGE REFERENCE UNITS LAB NAUR(LOINC) mEq/L 57 Sodium,Urine Performed By: #### NAUR #### [place] [address] LACTIC ACID Collected: 01/13/2018 Status: F Source: [facility] 10:15 AM HEALTH SYSTEM REPOSITORY TYPE CODE TESTS RESULT OUT OF REFERENCE UNITS RANGE LAB LAC(LOINC) 0.4-2.0 mEq/L High alert Lactic Acid 5.5 Performed By: #### LAC #### [place] [address] PROTIME Collected: 01/13/2018 Status: F Source: [facility] 10:15 AM HEALTH SYSTEM REPOSITORY TYPE CODE TESTS RESULT OUT OF REFERENCE UNITS RANGE LAB PTI(LOINC) 9.3-11.9 sec Prothrombin High Time 15.6 LAB INR(LOINC) INR 1.59 Result Comment: Standard Therapy 2.0-3.0 High Dose 2.5-3.5 Performed By: #### PT #### [place] [address] ACTIVATED PTT Collected: 01/13/2018 Status: F Source: [facility] 10:15 AM HEALTH SYSTEM REPOSITORY TYPE CODE TESTS RESULT OUT OF REFERENCE UNITS RANGE LAB APTT(LOINC 22.0-34.0 sec ) High Activated PTT 40.9 Performed By: #### APTT #### [place] [address] FIBRINOGEN Collected: 01/13/2018 Status: F Source: [facility] 10:15 AM HEALTH SYSTEM REPOSITORY TYPE CODE TESTS RESULT OUT OF REFERENCE UNITS RANGE LAB FIB(LOINC) 180-430 mg/dl Fibrinogen 311 Performed By: #### FIB #### [place] [address] PROGRESS Observed: 01/13/2018 Status: COMPLETED Source: [place] 6:20 AM CLINIC OTHER CAMPUS REPOSITORY HNO ID: [id number] Author: Dionicio (Edenilson) Rodney Service: Vascular Surgery Author Type: Resident Type: Progress Notes Filed: 01/13/2018 8:46 AM Note Text: Attestation signed by Venkat Paniagua at 01/15/2018 11:46 AM I saw and evaluated the patient. Discussed with the resident and agree with resident's findings and plan as documented in the resident's note. Agree with nephrology consult. It would appear to me that the patient is still in need of volume resuscitation especially with the amount of serosanguineous fluid that is being drained through the abdomen therapy wound VAC. I have discussed this with the intensive care staff as well as with our nurse practitioner we are going to try to improve his volume status today as we resuscitate him. He does appear to have some papillary function at this point in time which was absent yesterday. He also appears to withdraw from painful stimuli. Vascular Surgery Progress Note SERVICE DATE: 01/13/2018 Vascular AND Thoracic Surgery Service Pager: For questions or concerns Mon-Fri 6a-5p please page [phone]. After 5pm and on Weekends and Holidays, please page [phone] if in ICU or [phone] if on RNF. Subjective SUBJECTIVE: Febrile overnight Tm 38.3*C, Levo restarted, low UOP ~10cc/hr despite fluids, High VAC output Diet: DIET NPO Objective OBJECTIVE: Vitals: Temp (24hrs), Av.8 ?C (94.6 ?F), Min:29.9 ?C (85.8 ?F), Max:38.3 ?C (100.9 ?F) Pulse 99 Temp 36.6 ?C (97.9 ?F) (Axillary) Resp 18 Ht 172.7 cm (5' 8) Wt 80.1 kg (176 lb 9.4 oz) SpO2 95% BMI 26.85 kg/m? O2 Therapy: Ventilator IANDO: Date 01/12/18699 - 01/13/1865801/13/18699 - 01/14/18 0659 Shift 2007-9873 7106-4374 5782-2932 24 Hour Total 5797-6162 8697-7140 4953-7297 24 Hour Total I N T A K E IV 1600 5100 6700 IVPB 1600 50 1650 Potassium IVPB 300 300 LR 3000 3000 NORepinephrine Volume 200 200 ALBUMIN (mL) 1500 1500 MAGNESIUM SULFATE 50 50 Blood Products 7709 331 7105 PRBC Intake (mL) 900 900 Platelet mL 600 200 800 Shift Total 3100 5300 8400 O U T P U T Urine 200 200 Tube Output ( Indwelling Urinary Catheter 01/12/18 1108 Assessment Temperature Monitoring 16 Fr) 200 200 Drains 2200 1500 3700 Negative Pressure: Output (mL) (Negative Pressure Wound Therapy 01/12/18 0749 Abdomen) 2200 1500 3700 Tubes 1750 1000 2750 Drain/Tube Output (Drain/Tube 01/12/18 0100 Hemovac Midline Anterior Abdomen) 1000 1000 2000 Drain/Tube Output (Drain/Tube 01/12/18 Fecal Management System) 300 300 Output (GI Feed/Drain 01/12/18 0100) 450 450 # of BMs Number of BMs 1 x 1 x Shift Total 2200 3450 1000 6650 Weight (kg) 80.1 80.1 80.1 80.1 80.1 80.1 MEDICATIONS Current Facility-Administered Medications: propofol infusion (DIPRIVAN) 5-60 mcg/kg/min INTRAVENOUS CONTINUOUS ampicillin-sulbactam 3 g in NaCl 0.9% 100 mL MB+ (UNASYN) 3 g INTRAVENOUS q 6 H dextrose 40 % 15 g 15 g ORAL PRN Or glucagon 1 mg injection (GLUCAGEN) 1 mg INTRAMUSCULAR PRN Or dextrose 50% in water 25 mL syringe 12.5 g INTRAVENOUS PRN magnesium sulfate 1 g in D5W 100 mL 1 g INTRAVENOUS PRN magnesium sulfate in water 2 g in sterile water 50 ml 2 g INTRAVENOUS PRN fentaNYL 20 mcg/mL iv infusion in NaCl 0.9% 100 mL 25-150 mcg/hr INTRAVENOUS CONTINUOUS pantoprazole 40 mg injection (PROTONIX) 40 mg INTRAVENOUS DAILY (6 AM) NORepinephrine 16 mg in D5W 250 mL (LEVOPHED) 0.6-30 mcg/min INTRAVENOUS CONTINUOUS lactated ringers infusion 150 mL/hr INTRAVENOUS CONTINUOUS Chlorhexidine Gluconate 0.12 % 15 mL (PERIDEX) 15 mL ORAL q 12 H perflutren lipid microspheres 1.1 mg/mL 1.3 mL injection (DEFINITY) 1.3 mL INTRAVENOUS PRN(NO DISPENSE) Labs: Recent Labs 01/13/18 0455 01/12/18 2255 01/12/18 1140 NA 152* 153* < > 156* K 5.3* 4.6 < > 2.9* CHLOR 118* 119* < > 121* CO2 23 25 < > 26 BUN 24* 22* < > 17 CREAT 2.15* 1.89* < > 1.18* GLUC 91 78 < > 122* ANION 16 14 < > 12 CA 6.7* 7.6* < > 8.1* MG -- -- -- 1.4* P 4.8 -- -- -- WBC 9.99* 4.62 < > 4.68 HB 11.4* 10.9* < > 13.0* HCT 33.0* 31.9* < > 38.4* PLT 68* 76* < > 79* LACT 6.4* 6.8* < > -- INR 1.43 1.41 -- 1.29 PH 7.365 7.382 < > 7.305* PCO2 40.7 39.3 < > 47.5* PO2 84.6* 176.7* < > 82.9* BE -2.4 -1.9 < > -3.4 < > = values in this interval not displayed. Exam: GENERAL: No distress NEURO: CN II-XII grossly intact, not following commands HEENT: normocephalic, atraumatic LUNGS: Unlabored breathing O2 Therapy: Ventilator CARDIAC: sinus tachy, BP stable on Levo @ 25 ABDOMEN: Soft, D, aTTP, voluntary guarding, VAC with SS output EXTREMITIES: MAK, No deformities, +edema, palpable pulses SKIN: Skin color, texture, turgor normal, No rashes or lesions ASSESSMENT AND PLAN: Active Hospital Problems Diagnosis Date Noted - Ruptured abdominal aortic aneurysm (AAA) ([facility]) 01/12/2018 - DIC (disseminated intravascular coagulation) (HCC) 01/12/2018 - Hemorrhagic shock (HCC) 01/12/2018 - Acute respiratory failure (HCC) 01/12/2018 - Cardiac arrest (HCC) 01/12/2018 - Hypernatremia 01/12/2018 - Hypokalemia 01/12/2018 - Hypomagnesemia 01/12/2018 - Hypophosphatemia 01/12/2018 - Hyperchloremia 01/12/2018 77 year old male with Ruptured AAA s/p Emergent Repair, takeback washout, repair of serosal tears x2, on 01/12, hemorrhagic shock, acute resp failure with pulm edema, TERENCE ? - Vent mgmt per MICU - NPO/IVF - Wean Levo as able - Acute blood loss and dilutional anemia and thrombocytopenia- may transfuse today if unable to wean pressors - q6 labs - Cont Abthera VAC - TERENCE --> check FENa today, consider Nephro consult - CXR with bilateral infiltrates c/w pulm edema - Unasyn empirically, BCx and RCx pending - OR possibly tomorrow ? Assessment and plan discussed with attending: Dr. Paniagua SIGNATURE: Dionicio Stevens MD PATIENT NAME: Naveen Akins DATE: January 13, 2018 TIME: 6:20 AM Vascular AND Thoracic Surgery Service Pager: For questions or concerns Mon-Tue 6a-5p please page [phone]. After 5pm and on Weekends and Holidays, please page [phone] if in ICU or [phone] if on RNF. MAGNESIUM BLOOD Collected: 01/13/2018 Status: F Source: [facility] 6:15 AM HEALTH SYSTEM REPOSITORY TYPE CODE TESTS RESULT OUT OF REFERENCE UNITS RANGE LAB MAG(LOINC) 1.6-2.6 mg/dL Low Magnesium Blood 1.3 Performed By: #### MAG #### [facility] [address] [place] [address] CHEST 1 VIEW Observed: 01/13/2018 Status: F Source: [facility] 4:57 AM HEALTH SYSTEM REPOSITORY Performed at [facility] APPROVED BY: Yahir Grande MD EXAM TITLE: CHEST 1 VIEW DATE: 01/13/2018 04:23 COMPARISON: 01/12/2018 CLINICAL INDICATION/HISTORY: Short of breath TECHNIQUE: AP upright portable chest FINDINGS: Pre-existing lines and tubes remain in unaltered position. Persistent left pleural effusion along with diffuse bilateral worsening infiltrates, likely related to edema/congestion. Bilateral pneumonia considered less likely. Stable cardiac size. There is deformity of the right scapula, likely representing an old fracture. IMPRESSION: Worsening bilateral infiltrates, likely related to edema/congestion. Bilateral pneumonia considered less likely. FIBRINOGEN Collected: 01/13/2018 Status: F Source: [facility] 4:55 AM [facility] SYSTEM REPOSITORY TYPE CODE TESTS RESULT OUT OF REFERENCE UNITS RANGE LAB FIB(LOINC) 180-430 mg/dl Fibrinogen 255 Performed By: #### FIB #### [place] [address] PROTIME Collected: 01/13/2018 Status: F Source: [facility] 4:[facility] REPOSITORY TYPE CODE TESTS RESULT OUT OF REFERENCE UNITS RANGE LAB PTI(LOINC) 9.3-11.9 sec Prothrombin High Time 14.7 LAB INR(LOINC) INR 1.43 Result Comment: Standard Therapy 2.0-3.0 High Dose 2.5-3.5 Performed By: #### PT #### [place] [address] ACTIVATED PTT Collected: 01/13/2018 Status: F Source: [facility] REPOSITORY TYPE CODE TESTS RESULT OUT OF REFERENCE UNITS RANGE LAB APTT(LOINC 22.0-34.0 sec ) High Activated PTT 36.5 Performed By: #### APTT #### [place] [address] LACTIC ACID Collected: 01/13/2018 Status: F Source: [facility] 4:[facility] REPOSITORY TYPE CODE TESTS RESULT OUT OF REFERENCE UNITS RANGE LAB LAC(LOINC) 0.4-2.0 mEq/L High alert Lactic Acid 6.4 Performed By: #### LAC #### [place] [address] PHOSPHORUS BLOOD Collected: 01/13/2018 Status: F Source: [place] [id number]:[facility] REPOSITORY TYPE CODE TESTS RESULT OUT OF REFERENCE UNITS RANGE LAB PHOS(LOINC 2.5-4.9 mg/dL ) Phosphorus Blood 4.8 Performed By: #### PHOS #### [place] [address] BASIC PANEL Collected: 01/13/2018 Status: F Source: [facility] 4:55 AM [facility]ALTH SYSTEM REPOSITORY TYPE CODE TESTS RESULT OUT OF REFERENCE UNITS RANGE LAB NA(LOINC) 136-145 mEq/L High Sodium Blood 152 LAB K(LOINC) 3.5-5.1 mEq/L High Potassium Blood 5.3 Result Comment: SPECIMEN SLIGHTLY HEMOLYZED LAB CL(LOINC) 98-107 mEq/L Chloride High Blood 118 LAB CO2(LOINC) 21-32 mEq/L CO2 Blood 23 LAB GLU(LOINC) 70-99 mg/dL Glucose Blood 91 LAB BUN(LOINC) 7-18 mg/dL BUN Blood High 24 LAB CREA(LOINC) 0.67-1.17 mg/dL Creatinine High Blood 2.15 LAB CA(LOINC) 8.5-10.1 mg/dL Calcium Low Blood 6.7 LAB ANGAP(LOINC) 8-16 Anion Gap 16 Performed By: #### P8 #### [facility] [address] [place] [address] HEMOGRAM/DIFF Collected: 01/13/2018 Status: F Source: [place] [address]:[facility] REPOSITORY TYPE CODE TESTS RESULT OUT OF REFERENCE UNITS RANGE LAB WBC(LOINC) 4.23-9.07 thou/cmm High WBC 9.99 LAB RBC(LOINC) 4.63-6.08 mil/cmm Low RBC 3.99 LAB HGB(LOINC) 13.7-17.5 g/dL Low Hgb 11.4 LAB HCT(LOINC) 40.1-51.0 % Low Hct 33.0 LAB MCV(LOINC) 83.2-95.6 fl Low MCV 82.7 LAB MCH(LOINC) 25.7-32.2 pg MCH 28.6 LAB MCHC(LOINC) 32.3-36.5 % MCHC 34.5 LAB RDW(LOINC) 11.6-14.4 % High RDW 17.7 LAB RDWSD(LOINC 36.1-45.8 fl ) High RDW SD 53.8 LAB PLT(LOINC) 141-365 thou/cmm Low Platelet 68 Result Comment: Smear scanned tech agrees with platelet count LAB MPV(LOINC) 8.7-12.0 fl MPV 10.5 LAB SEG(LOINC) % Seg Neutrophil 83.3 LAB IGRE(LOINC) % Immature Grans 0.70 LAB LYMPH(LOINC) % Lymphocyte 8.2 LAB MNO(LOINC) % Monocyte 3.0 LAB EOSIN(LOINC) % Eosinophil 4.5 LAB BASO(LOINC) % Basophil 0.3 LAB SEGN(LOINC) 1.78-5.38 thou/cmm Abs. High Neut (ANC) 8.32 LAB IGAB(LOINC) 0.00-0.05 thou/cmm Abs High Immature Grans 0.07 LAB LYMN(LOINC) 0.84-2.85 thou/cmm Abs. Low Lymph 0.82 LAB MONON(LOINC) 0.30-0.82 thou/cmm Abs. [place]incon 0.30 LAB EOSN(LOINC) 0.04-0.54 thou/cmm Abs. Eosin 0.45 LAB BASON(LOINC) 0.01-0.08 thou/cmm Abs. Baso 0.03 Result Comment: Smear scanned; tech agrees with automated differential Performed By: #### CBCD1 #### [place] [address] BLOOD GAS ARTERIAL Collected: 01/12/2018 Status: F Source: [facility] 10:55 PM HEALTH SYSTEM REPOSITORY TYPE CODE TESTS RESULT OUT OF REFERENCE UNITS RANGE LAB FIO2(LOINC % ) FIO2 80 LAB TEMPA(LOIN C) Temperature 38.0 LAB PH(LOINC) 7.350-7.450 pH Arterial 7.382 LAB PCO2(LOINC 36.0-46.0 mm Hg ) PCO2 Arterial 39.3 LAB PO2(LOINC) 85.0-96.0 mm Hg PO2 High Arterial 176.7 LAB HCO3A(LOIN 22.0-26.0 mEq/L C) HCO3- 22.6 LAB O2%A(LOINC 95.0-98.0 % ) O2% Sat High Arterial 99.0 LAB BASEX(LOIN -2.5 to 2.5 mEq/L C) Base Excess -1.9 Performed By: #### ABG #### [place] [id number] BASIC PANEL Collected: 01/12/2018 Status: F Source: [facility] 10:55 PM HEALTH SYSTEM REPOSITORY TYPE CODE TESTS RESULT OUT OF REFERENCE UNITS RANGE LAB NA(LOINC) 136-145 mEq/L Sodium High Blood 153 LAB K(LOINC) 3.5-5.1 mEq/L Potassium Blood 4.6 LAB CL(LOINC) 98-107 mEq/L Chloride High Blood 119 LAB CO2(LOINC) 21-32 mEq/L CO2 Blood 25 LAB GLU(LOINC) 70-99 mg/dL Glucose Blood 78 LAB BUN(LOINC) 7-18 mg/dL BUN High Blood 22 LAB CREA(LOINC 0.67-1.17 mg/dL ) High Creatinine Blood 1.89 LAB CA(LOINC) 8.5-10.1 mg/dL Low Calcium Blood 7.6 LAB ANGAP(LOIN 8-16 C) Anion Gap 14 Performed By: #### P8 #### [facility] [address] [place] [address] LACTIC ACID Collected: 01/12/2018 Status: F Source: [facility] 10:[facility] REPOSITORY TYPE CODE TESTS RESULT OUT OF REFERENCE UNITS RANGE LAB LAC(LOINC) 0.4-2.0 mEq/L High alert Lactic Acid 6.8 Performed By: #### LAC #### [place] [address] HEMOGRAM Collected: 01/12/2018 Status: F Source: [facility] [address] SYSTEM REPOSITORY TYPE CODE TESTS RESULT OUT OF REFERENCE UNITS RANGE LAB WBC(LOINC) 4.23-9.07 thou/cmm WBC 4.62 LAB RBC(LOINC) 4.63-6.08 mil/cmm Low RBC 3.86 LAB HGB(LOINC) 13.7-17.5 g/dL Low Hgb 10.9 LAB HCT(LOINC) 40.1-51.0 % Low Hct 31.9 LAB MCV(LOINC) 83.2-95.6 fl Low MCV 82.6 LAB MCH(LOINC) 25.7-32.2 pg MCH 28.2 LAB MCHC(LOINC) 32.3-36.5 % MCHC 34.2 LAB RDW(LOINC) 11.6-14.4 % High RDW 17.2 LAB RDWSD(LOINC 36.1-45.8 fl ) High RDW SD 52.5 LAB PLT(LOINC) 141-365 thou/cmm Low Platelet 76 LAB MPV(LOINC) 8.7-12.0 fl MPV 10.2 Performed By: #### CBC1 #### [facility] [address] [place] [address] FIBRINOGEN Collected: 01/12/2018 Status: F Source: [address] [facility] REPOSITORY TYPE CODE TESTS RESULT OUT OF REFERENCE UNITS RANGE LAB FIB(LOINC) 180-430 mg/dl Fibrinogen 232 Performed By: #### FIB #### [place] [address] PROTIME Collected: 01/12/2018 Status: F Source: [address] SYSTEM REPOSITORY TYPE CODE TESTS RESULT OUT OF REFERENCE UNITS RANGE LAB PTI(LOINC) 9.3-11.9 sec Prothrombin High Time 13.8 LAB INR(LOINC) INR 1.41 Result Comment: Standard Therapy 2.0-3.0 High Dose 2.5-3.5 Performed By: #### PT #### [facility] [address] [place] [address] ACTIVATED PTT Collected: 01/12/2018 Status: F Source: [address] SYSTEM REPOSITORY TYPE CODE TESTS RESULT OUT OF REFERENCE UNITS RANGE LAB APTT(LOINC 22.0-34.0 sec ) High Activated PTT 34.9 Performed By: #### APTT #### [place] [address] PROCALCITONIN Collected: 01/12/2018 Status: F Source: [address] SYSTEM REPOSITORY TYPE CODE TESTS RESULT OUT OF REFERENCE UNITS RANGE LAB PRCAS(LOIN ng/mL C) Procalcitonin 48.78 Result Comment: Levels <0.50 ng/mL represent a low risk of severe sepsis and/or septic shock, while levels >2.00 ng/mL represent an elevated risk of severe sepsis and/or septic shock. Levels <0.50 ng/mL do not exclude infection, as infections or systemic infections in early stages (<6hrs) can be associated with low concentrations. Levels between 0.50-2.00 ng/mL should be interpreted in the clinical context of the patient, as a variety of conditions such as henderson, trauma, surgery and severe cardiogenic shock can cause procalcitonin elevations. Performed By: #### PRCAS #### [facility] [address] [place] [address] Observed: 01/12/2018 Status: F Source: [facility] 10:55 PM HEALTH SYSTEM RESPIRATORY REPOSITORY Test performed at [facility] No growth Few WBC No organisms seen Performed By: #### C_RES #### [place] [address] Observed: 01/12/2018 Status: F Source: [facility] BLOOD 10:55 PM HEALTH SYSTEM REPOSITORY Test performed at [facility] No growth Performed By: #### C_BLO #### [facility] [address] [place] [address] PROGRESS Observed: 01/12/2018 Status: COMPLETED Source: [place] 10:14 PM CLINIC OTHER CAMPUS REPOSITORY HNO ID: [id number] Author: Chente Whittaker Service: Critical Care Author Type: Physician Type: Progress Notes Filed: 01/12/2018 10:39 PM Note Text: MICU - PROGRESS NOTE SERVICE DATE: 01/12/2018 SERVICE TIME: 10:14 PM Admission Date: 01/12/2018 Subjective Called to patients bedside given concerns for possible seizure activity as per night nursing staff. Patient on arrival intubated, sedated on mechanical ventilation w/ RASS -4. Patient with periodic shoulder/arm twitching w/ what appears like paradoxical breathing on vent. No significant vent dyssynchrony and pressors stable. Family at bedside and answered all questions. No other significant events.. PMH: PAST MEDICAL HISTORY Diagnosis Date - DIC (disseminated intravascular coagulation) (HCC) 01/12/2018 PSH: PAST SURGICAL HISTORY Procedure Laterality Date - LAP CHOLECYSTECT/CHOLANGIOGRAPHY 05-28-09 - REPAIR UMBILICAL NATAN,5+Y/O,REDUC 05-28-09 FH: FAMILY HISTORY Problem Relation Age of Onset - Coronary Artery Disease Father - None Mother SOCIAL HISTORY: Social History Substance Use Topics - Smoking status: Never Smoker - Smokeless tobacco: Not on file - Alcohol use No OUTPATIENT MEDICATIONS: Prior to Admission Medications: Prescriptions Prior to Admission: metoprolol succinate(TOPROL XL 50 MG 24 HR TAB) Take one(1) tablet daily. Disp: Rfl: 0 01/11/2018 ASPIRIN 325 MG TAB Take one(1) tablet daily. Disp: Rfl: 0 01/11/2018 triamterene/hydrochlorothiazid(DYAZIDE 37.5 MG-25 MG CAP) take one half (1/2) tablet daily Disp: Rfl: 0 01/11/2018 LIPITOR 10 MG TAB Take one(1) tablet daily. Disp: Rfl: 0 01/11/2018 INPATIENT MEDICATIONS: Current hospital medications: insulin regular iv infusion 250 units in NaCl 0.9% 250 mL - AK CARD SURG NOMOGRAM 0-12 Units/hr INTRAVENOUS CONTINUOUS dextrose 40 % 15 g 15 g ORAL PRN glucagon 1 mg injection (GLUCAGEN) 1 mg INTRAMUSCULAR PRN dextrose 50% in water 25 mL syringe 12.5 g INTRAVENOUS PRN magnesium sulfate 1 g in D5W 100 mL 1 g INTRAVENOUS PRN magnesium sulfate in water 2 g in sterile water 50 ml 2 g INTRAVENOUS PRN fentaNYL 20 mcg/mL iv infusion in NaCl 0.9% 100 mL 25-150 mcg/hr INTRAVENOUS CONTINUOUS nitroglycerin 100 mg in D5W 250 mL 5-200 mcg/min INTRAVENOUS CONTINUOUS pantoprazole 40 mg injection (PROTONIX) 40 mg INTRAVENOUS DAILY (6 AM) NORepinephrine 16 mg in D5W 250 mL (LEVOPHED) 0.6-30 mcg/min INTRAVENOUS CONTINUOUS lactated ringers infusion 150 mL/hr INTRAVENOUS CONTINUOUS Chlorhexidine Gluconate 0.12 % 15 mL (PERIDEX) 15 mL ORAL q 12 H lactated ringers 1,000 mL iv bolus 1,000 mL INTRAVENOUS ONCE lactated ringers 1,000 mL iv bolus 1,000 mL INTRAVENOUS ONCE ALLERGIES: ALLERGIES No Known Allergies Objective VITAL SIGNS (last 24hrs min/max): Pulse 103 Temp 37.6 ?C (99.7 ?F) Resp 26 SpO2 99% BP 99/64 (10mcg/min levo) Respiratory/Nursing Documentation: O2 Therapy: Ventilator (01/12/182010) Invasive Ventilator Mode: Pressure Regulated Volume Control (01/12/182010) Set Ventilator Respiratory Rate (BPM): 18 (01/12/182010) Total Respiratory Rate (BPM): 18 (01/12/182010) Tidal Volume Set (mL): 500 (01/12/182010) Exhaled Tidal Volume (mL): 624 (01/12/182010) Minute Volume (L): 9.6 (01/12/182010) Peak Inspiratory Pressure (cm H2O): 29 (01/12/182010) PEEP/CPAP (cm H2O): 5 (01/12/182010) PHYSICAL EXAM PERFORMED: General: intubated, sedated on MV Resp: diminished, coarse mechanical BS b/l, + ETT in place, paradoxical breathing on vent perioidcally CV: tachycardic,RR, no MGR noted Abd: post-operative abdomen w/ wound vac in place, tense/distended Ext: no pedal edema noted, warm to touch, no cyanosis Neuro: sedated,non-responsive, rare myoclonic twitches in upper extremities NET FLUID BALANCE Intake/Output Summary (Last 24 hours) at 01/12/182213 Last data filed at 01/12/182022 Gross per 24 hour Intake 8400 ml Output 5650 ml Net 2750 ml DATA: I personally reviewed all imaging and laboratory data below. LABS: Hemoglobin (g/dL) Date Value 11/14/2017 15.0 HGB (g/dL) Date Value 01/12/2018 12.0 Hematocrit (%) Date Value 01/12/2018 35.5 WBC (thou/cmm) Date Value 01/12/2018 3.88 Platelet Count (thou/cmm) Date Value 01/12/2018 81 Glucose (mg/dL) Date Value 01/12/2018 99 Potassium (mEq/L) Date Value 01/12/2018 3.4 Sodium (mEq/L) Date Value 01/12/2018 156 Chloride (mEq/L) Date Value 01/12/2018 122 CO2 (mEq/L) Date Value 01/12/2018 23 Creatinine (mg/dL) Date Value 01/12/2018 1.38 BUN (mg/dL) Date Value 01/12/2018 19 Anion Gap (no units) Date Value 01/12/2018 14 Calcium (mg/dL) Date Value 01/12/2018 7.5 Lactate 6.3 IMAGING: CXR 01/12: IMPRESSION: Lines and tubes as described ? Small layering left pleural effusion ? Left lung base/retrocardiac opacity may reflect atelectasis or infection ? Interstitial prominence, consider interstitial edema, atypical pneumonia or chronic interstitial change Assessment PROBLEMS: - Ruptured AAA POD #0 - Cardiac Arrest/?PEA - Persistent Circulatory Shock - Acute Hypoxic Respiratory Failure on mechanical ventilation - Acute Consumptive Coagulopathy - Encephalopathy - Multifactorial - ? Clonus - TERENCE - Suspected ATN given recent clinical hx - Lactic Acidosis - Hypernatremia PLANS FOR TODAY: - Recommend continuation of mechanical ventilation, will adjust PEEP in efforts to wean FiO2 - Continue to trend ABG/VBG and adjust vent as needed - Wean pressors as tolerated, etiology of persistent shock unclear. ? Post-operative vasoplegia vs. Sepsis vs cardiogenic - Continue w/ IVF resuscitation, check PCT, BCx/Sputum Cx. Low threshold for empiric abx if fevers overnight. - Obtain TTE - Continue to monitor lactate - Monitor CBC/coags - STAT EEG, overall unimpressive clinical exam. ? Myoclonus. - Recommend formal head imaging when patient more stable - Adjust IVF to 1/2 NS if persistent hypernatremia - Continue supportive care - SCDs/PPI - Discontinue insulin gtt/nitro gtt as patient hasn't required for sometime Critical Care Documentation: The patient has the following organ/system impairment(s): Acute blood loss, Acute kidney injury, Circulatory shock, Coagulopathy, Complex life-threatening medical problem(s), Encephalopathy and Respiratory failure (Acute, with Hypoxemia) This patient has a high probability of sudden, clinically significant deterioration, which requires the highest level of physician preparedness to intervene urgently. I managed/supervised life or organ supporting interventions that required frequent physician assessment. I devoted my full attention to the direct care of this patient for the amount of time indicated below. Time I spent with family or surrogate(s) is included only if the patient was incapable of providing the necessary information or participating in medical decision making. Time devoted to teaching is not included. Critical Care Time devoted to this patient is 40 minutes SIGNATURE: Chente Whittaker MD PATIENT NAME: Naveen Akins DATE: January 12, 2018 TIME: 10:14 PM ANES POST Observed: 01/12/2018 Status: COMPLETED Source: [place] 6:52 PM CLINIC OTHER CAMPUS REPOSITORY HNO ID: [id number] Author: Matt Teresa MD Service: Anesthesiology Author Type: Physician Type: Anesthesia PostOp Filed: 01/12/2018 6:53 PM Note Text: POST ANESTHESIA EVALUATION NOTE SERVICE DATE: 01/12/2018 SERVICE TIME: 6:52 PM : 1940 Vitals: 01/12/18 1500 01/12/18 1700 01/12/18 1730 01/12/18 1800 Temp: (!) 35.5 ?C (95.9 ?F) 36 ?C (96.8 ?F) (!) 35.6 ?C (96.1 ?F) 36.6 ?C (97.9 ?F) 01/12/18 1730 01/12/18 1745 01/12/18 1800 01/12/18 1844 Arterial BP 1: 113/63 117/65 119/66 99/55 01/12/18 1730 01/12/18 1745 01/12/18 1800 01/12/18 1844 Pulse: 95 95 100 97 01/12/18 1730 01/12/18 1745 01/12/18 1800 01/12/18 1844 Resp: 9 16 20 20 01/12/18 1730 01/12/18 1745 01/12/18 1800 01/12/18 1844 SpO2: 96% 97% 98% 96% Validated Vital Signs: Yes POST ANES STATUS: PACU/ICU Patient Condition: Guarded Neurological Status: On intravenous sedation. Pulmonary Status: On invasive mechanical ventilation. Airway Control: Intubated on mechanical ventilation. Cardiovascular Status: Guarded Pain: Adequately controlled Postoperative Nausea/Vomiting: No significant post operative nausea or vomiting Postoperative Hydration Status: Adequate. Anesthetic Complications: None Recommendation: Continue current plan of care Other Remarks: SIGNATURE: Matt Teresa MD PATIENT NAME: Naveen Akins DATE: January 12, 2018 TIME: 6:52 PM PAGER/CONTACT #: [phone] BLOOD GAS ARTERIAL Collected: 01/12/2018 Status: F Source: [address] [facility] REPOSITORY TYPE CODE TESTS RESULT OUT OF REFERENCE UNITS RANGE LAB FIO2(LOINC % ) FIO2 Value Not Given LAB TEMPA(LOIN C) Temperature 37.0 LAB PH(LOINC) 7.350-7.450 pH Arterial 7.374 LAB PCO2(LOINC 36.0-46.0 mm Hg ) PCO2 Arterial 36.2 LAB PO2(LOINC) 85.0-96.0 mm Hg PO2 Arterial 85.4 LAB HCO3A(LOIN 22.0-26.0 mEq/L C) Low HCO3- 20.7 LAB O2%A(LOINC 95.0-98.0 % ) O2% Sat Arterial 97.0 LAB BASEX(LOIN -2.5 to 2.5 mEq/L C) Base Excess -4.0 Performed By: #### ABG #### [place] [address] IONIZED CALCIUM Collected: 01/12/2018 Status: F Source: [address] [facility] REPOSITORY TYPE CODE TESTS RESULT OUT OF REFERENCE UNITS RANGE LAB CAION(LOINC 4.43-4.93 mg/dL ) Ionized 4.43 Calcium LAB PHCAI(LOINC 7.320-7.420 ) pH 7.362 LAB CAPH(LOINC) 4.36-4.73 mg/dL Low Ionized 4.35 Ca,PH7.4 Performed By: #### IONCA #### [place] [address] FIBRINOGEN Collected: 01/12/2018 Status: F Source: [address] [facility] REPOSITORY TYPE CODE TESTS RESULT OUT OF REFERENCE UNITS RANGE LAB FIB(LOINC) 180-430 mg/dl Fibrinogen 241 Performed By: #### FIB #### [place] [address] HEMOGRAM Collected: 01/12/2018 Status: F Source: [address] [facility] REPOSITORY TYPE CODE TESTS RESULT OUT OF REFERENCE UNITS RANGE LAB WBC(LOINC) 4.23-9.07 thou/cmm Low WBC 3.88 LAB RBC(LOINC) 4.63-6.08 mil/cmm Low RBC 4.28 LAB HGB(LOINC) 13.7-17.5 g/dL Low Hgb 12.0 LAB HCT(LOINC) 40.1-51.0 % Low Hct 35.5 LAB MCV(LOINC) 83.2-95.6 fl Low MCV 82.9 LAB MCH(LOINC) 25.7-32.2 pg MCH 28.0 LAB MCHC(LOINC) 32.3-36.5 % MCHC 33.8 LAB RDW(LOINC) 11.6-14.4 % High RDW 16.9 LAB RDWSD(LOINC 36.1-45.8 fl ) High RDW SD 51.0 LAB PLT(LOINC) 141-365 thou/cmm Low Platelet 81 Result Comment: Smear scanned tech agrees with platelet count LAB MPV(LOINC) 8.7-12.0 fl MPV 10.1 Performed By: #### CBC1 #### [facility] [address] [place] [address] LACTIC ACID Collected: 01/12/2018 Status: F Source: [facility] 6:30 PM [facility]ALTH SYSTEM REPOSITORY TYPE CODE TESTS RESULT OUT OF REFERENCE UNITS RANGE LAB LAC(LOINC) 0.4-2.0 mEq/L High alert Lactic Acid 6.7 Performed By: #### LAC #### [place] [address] BASIC PANEL Collected: 01/12/2018 Status: F Source: [facility] 4:45 PM HEALTH SYSTEM REPOSITORY TYPE CODE TESTS RESULT OUT OF REFERENCE UNITS RANGE LAB NA(LOINC) 136-145 mEq/L Sodium High Blood 156 LAB K(LOINC) 3.5-5.1 mEq/L Low Potassium Blood 3.4 LAB CL(LOINC) 98-107 mEq/L Chloride High Blood 122 LAB CO2(LOINC) 21-32 mEq/L CO2 Blood 23 LAB GLU(LOINC) 70-99 mg/dL Glucose Blood 99 LAB BUN(LOINC) 7-18 mg/dL BUN High Blood 19 LAB CREA(LOINC 0.67-1.17 mg/dL ) High Creatinine Blood 1.38 LAB CA(LOINC) 8.5-10.1 mg/dL Low Calcium Blood 7.5 LAB ANGAP(LOIN 8-16 C) Anion Gap 14 Performed By: #### P8 #### [facility] [address] [place], [place] [address] PHERESED PLATELETS Collected: 01/12/2018 Status: F Source: [facility] 4:31 PM HEALTH SYSTEM REPOSITORY TYPE CODE TESTS RESULT OUT OF REFERENCE UNITS RANGE LAB PPHR(LOINC) Pheresed Plts Done unit 1 Performed By: #### PPHRS #### [facility] [address] [place], [place] [address] CONSULT PROG Observed: 01/12/2018 Status: COMPLETED Source: [place] 1:48 PM CLINIC OTHER CAMPUS REPOSITORY HNO ID: [id number] Author: Elder Yu) Kalee Service: Critical Care Author Type: Physician Type: Consult Progress Note Filed: 01/12/2018 2:16 PM Note Text: ICU - PROGRESS NOTE SERVICE DATE: 01/12/2018 SERVICE TIME: 1:48 PM Admission Date: 01/12/2018 AGE: [id number] year old LOS: 0 days Subjective REASON FOR ICU ADMISSION: Hemorrhagic shock 2/2 ruptured AAA s/p repair, currently intubated and mechanically ventilated. Patient has arrived from his 2nd surgery. He is off pressors but per Dr Pani[place] still bleeding with open abdomen. ROS not possible 2/2 patient condition. Objective VITAL SIGNS (last 24hrs min/max): Temp Av.1 ?C (87.9 ?F) Min: 29.9 ?C (85.8 ?F) Max: 31.6 ?C (88.9 ?F) Pulse Av Min: 81 Max: 123 Arterial BP 1 Min: 90/65 Max: 195/114 Cuff No Data Recorded Pain Score: 0/10 Vital signs reviewed. Pulse 83 Temp (Src) 88.9 (Axillary) Resp 0 SpO2 95% Temp (24hrs), Av.1 ?C (87.9 ?F), Min:29.9 ?C (85.8 ?F), Max:31.6 ?C (88.9 ?F) NET FLUID BALANCE Intake/Output Summary (Last 24 hours) at 01/12/18 1348 Last data filed at 01/12/18 1200 Gross per 24 hour Intake 1600 ml Output 2700 ml Net -1100 ml MEDICATIONS Current Facility-Administered Medications: insulin regular iv infusion 250 units in NaCl 0.9% 250 mL - [place] CARD SURG NOMOGRAM 0-12 Units/hr INTRAVENOUS CONTINUOUS dextrose 40 % 15 g 15 g ORAL PRN Or glucagon 1 mg injection (GLUCAGEN) 1 mg INTRAMUSCULAR PRN Or dextrose 50% in water 25 mL syringe 12.5 g INTRAVENOUS PRN Chlorhexidine Gluconate 0.12 % 15 mL (PERIDEX) 15 mL ORAL q 6 HR magnesium sulfate 1 g in D5W 100 mL 1 g INTRAVENOUS PRN magnesium sulfate in water 2 g in sterile water 50 ml 2 g INTRAVENOUS PRN ceFAZolin iv piggyback 1 g in D5W (iso-osmotic) 50 mL (ANCEF) 1 g INTRAVENOUS q 8 H fentaNYL 20 mcg/mL iv infusion in NaCl 0.9% 100 mL 25-150 mcg/hr INTRAVENOUS CONTINUOUS nitroglycerin 100 mg in D5W 250 mL 5-200 mcg/min INTRAVENOUS CONTINUOUS NaCl 0.9% iv infusion 150 mL/hr INTRAVENOUS CONTINUOUS pantoprazole 40 mg injection (PROTONIX) 40 mg INTRAVENOUS DAILY (6 AM) NORepinephrine 16 mg in D5W 250 mL (LEVOPHED) 0.6-30 mcg/min INTRAVENOUS CONTINUOUS Lines, Drains, and Airways Line Peripheral Admission to Hospital Left Antecubital 18 Gauge -- days Peripheral Admission to Hospital Right Hand 22 Gauge -- days Arterial Line 01/12/18 0238 Arterial Line Left Brachial less than 1 day Central Line Double Lumen 01/12/18 0239 Right Neck less than 1 day Drain Drain/Tube 01/12/18 0100 Hemovac Midline Anterior Abdomen less than 1 day GI Feed/Drain 01/12/18 0100 less than 1 day Indwelling Urinary Catheter 01/12/18 1108 Assessment Temperature Monitoring 16 Fr less than 1 day Airway Airway Endotracheal Tube 01/12/18 1138 less than 1 day PHYSICAL EXAM PERFORMED: Constitutional: Lying in bed HEENT: IJ in neck, intubated, pupils fixed Cardiovascular: Regular rhythm Respiratory: breath sounds equal %FIO2 Min: 100 Max: 100 Abdomen: open with wound vac in place Extremities: Edema- No, very cold to touch, could not appreciate pulses Neurologic: Sedated Respiratory/Nursing Documentation: O2 Therapy: Ventilator (01/12/18 1245) Invasive Ventilator Mode: Pressure Regulated Volume Control (01/12/18 112) Set Ventilator Respiratory Rate (BPM): 14 (01/12/18 1129) Total Respiratory Rate (BPM): 14 (01/12/181128) Tidal Volume Set (mL): 500 (01/12/181128) Exhaled Tidal Volume (mL): 512 (01/12/181128) Minute Volume (L): 6.9 (01/12/181128) Peak Inspiratory Pressure (cm H2O): 27 (01/12/181128) PEEP/CPAP (cm H2O): 5 (01/12/181128) HEMODYNAMIC DATA: Reviewed NUTRITION: Enteral Feeds: No NPO DATA: Diagnostic tests reviewed for today's visit, films/specimens were personally reviewed by me: Most recent labs and imaging results. LABS: Recent Labs 01/12/18 1140 WBC 4.68 RBC 4.55* HB 13.0* HCT 38.4* MCV 84.4 PLT 79* GLUC 122* BUN 17 CREAT 1.18* NA 156* K 2.9* CHLOR 121* CO2 26 CA 8.1* PTSEC 13.3* APTT 32.9 INR 1.29 MG 1.4* ABG: Recent Labs 01/12/18 1140 01/12/18 1005 01/12/18 0853 PH 7.305* 7.335* 7.262* PO2 82.9* 198.2* 167.5* PCO2 47.5* 42.0 40.6 Assessment/Plan IMPRESSION: Critical Care Documentation: The patient has the following organ/system impairment(s): Complex life-threatening medical problem(s) and Respiratory failure (Acute) 77 year old male with PMH of AAA who was transferred to [facility] in shock 2/2 ruptured AAA c/b cardiac arrest s/p CPR and ROSC and s/p abdominal washout, repacking and repair of serosal tears x2. Currently off pressors. Abdomen open with wound vac drainig serosanguinous products. Received multiple units of pRBC, platelets, cryo, FFP as part of massive transfusion protocol. Intubated and mechanically ventilated Non anion gap metabolic acidosis 2/2 above Acute blood loss anemia Hypokalemia Hypernatremia and Hypercholeremia PLAN: Continue mechanical ventilation, underlying hemodynamics barrier to SAT SBT. Increase minute ventilation to help with acidosis. F/u blood gases Monitor vitals, I-Os, replace IVF and would favor blood if hemodynamics drop. Favor LR for maintenance Check CBC, coags frequently Replace K, check electrolytes Rewarm Vascular recs ICU PPx Guarded prognosis This patient has a high probability of sudden, clinically significant deterioration, which requires the highest level of physician preparedness to intervene urgently. I managed/supervised life or organ supporting interventions that required frequent physician assessment. I devoted my full attention to the direct care of this patient for the amount of time indicated below. Time I spent with family or surrogate(s) is included only if the patient was incapable of providing the necessary information or participating in medical decision making. Time devoted to teaching is not included. Discussed with staff/patient/family Time spent providing critical care services: 35 minutes excluding procedures. SIGNATURE: Elder Granda MD PATIENT NAME: Naveen Akins DATE: January 12, 2018 TIME: 1:48 PM ALLIED HEALTH Observed: 01/12/2018 Status: COMPLETED Source: [place] 12:00 PM CLINIC OTHER CAMPUS REPOSITORY HNO ID: [id number] Author: Chaplain Serna (Chaplain) Service: Spiritual Care Author Type: Envelope Stamping Machine Operator Type: Allied Health Filed: 01/12/2018 1:51 PM Note Text: SPIRITUALCARE Spiritual Care Visit- Brief Note Name: Naveen Akins Date: January 12, 2018 Notes: Met pt's fam in 3d floor WR and,at their request, prayed with them. Will add pt to prayer list as well. Previous retail center receptionist asked me to check in with them. Let them know I'd be here all day and reminded them of / retail center receptionist availability. Will continue to follow as needed. Envelope Stamping Machine Operator Signature: Chaplain Daphne To contact the Spiritual Care Department: Please call [phone] or Page the On-Call Envelope Stamping Machine Operator at pager [phone] Thank you for the opportunity to be of service. This is an electronically created document. IF PRINTED, PLEASE DO NOT REMOVE FROM THE CHART OR MODIFY PRINTED COPY. BLOOD GAS ARTERIAL Collected: 01/12/2018 Status: F Source: [facility] 11:40 AM HEALTH SYSTEM REPOSITORY TYPE CODE TESTS RESULT OUT OF REFERENCE UNITS RANGE LAB TEMPA(LOIN C) Temperature 37.0 LAB PH(LOINC) 7.350-7.450 Low pH Arterial 7.305 LAB PCO2(LOINC 36.0-46.0 mm Hg ) PCO2 High Arterial 47.5 LAB PO2(LOINC) 85.0-96.0 mm Hg Low PO2 Arterial 82.9 LAB HCO3A(LOIN 22.0-26.0 mEq/L C) HCO3- 23.1 LAB O2%A(LOINC 95.0-98.0 % ) O2% Sat Arterial 96.7 LAB BASEX(LOIN -2.5 to 2.5 mEq/L C) Base Excess -3.4 LAB FIO2(LOINC % ) FIO2 Value Not Given Performed By: #### ABG #### [facility] [address] [address] BASIC PANEL Collected: 01/12/2018 Status: F Source: [facility] 11:40 HEALTH SYSTEM REPOSITORY TYPE CODE TESTS RESULT OUT OF REFERENCE UNITS RANGE LAB NA(LOINC) 136-145 mEq/L Sodium High Blood 156 LAB K(LOINC) 3.5-5.1 mEq/L Low Potassium Blood 2.9 LAB CL(LOINC) 98-107 mEq/L Chloride High Blood 121 LAB CO2(LOINC) 21-32 mEq/L CO2 Blood 26 LAB GLU(LOINC) 70-99 mg/dL Glucose High Blood 122 LAB BUN(LOINC) 7-18 mg/dL BUN Blood 17 LAB CREA(LOINC 0.67-1.17 mg/dL ) High Creatinine Blood 1.18 LAB CA(LOINC) 8.5-10.1 mg/dL Low Calcium Blood 8.1 LAB ANGAP(LOIN 8-16 C) Anion Gap 12 Performed By: #### P8 #### [facility] [address] [address] HEMOGRAM Collected: 01/12/2018 Status: F Source: [facility] 11:40 HEALTH SYSTEM REPOSITORY TYPE CODE TESTS RESULT OUT OF REFERENCE UNITS RANGE LAB WBC(LOINC) 4.23-9.07 thou/cmm WBC 4.68 LAB RBC(LOINC) 4.63-6.08 mil/cmm Low RBC 4.55 LAB HGB(LOINC) 13.7-17.5 g/dL Low Hgb 13.0 LAB HCT(LOINC) 40.1-51.0 % Low Hct 38.4 LAB MCV(LOINC) 83.2-95.6 fl MCV 84.4 LAB MCH(LOINC) 25.7-32.2 pg MCH 28.6 LAB MCHC(LOINC) 32.3-36.5 % MCHC 33.9 LAB RDW(LOINC) 11.6-14.4 % High RDW 16.5 LAB RDWSD(LOINC 36.1-45.8 fl ) High RDW SD 50.9 LAB PLT(LOINC) 141-365 thou/cmm Low Platelet 79 LAB MPV(LOINC) 8.7-12.0 fl MPV 9.7 Performed By: #### CBC1 #### [place] [address] PROTIME Collected: 01/12/2018 Status: F Source: [facility] 11:40 AM HEALTH SYSTEM REPOSITORY TYPE CODE TESTS RESULT OUT OF REFERENCE UNITS RANGE LAB PTI(LOINC) 9.3-11.9 sec Prothrombin High Time 13.3 LAB INR(LOINC) INR 1.29 Result Comment: Standard Therapy 2.0-3.0 High Dose 2.5-3.5 Performed By: #### PT #### [place] [address] ACTIVATED PTT Collected: 01/12/2018 Status: F Source: [facility] 11:40 AM HEALTH SYSTEM REPOSITORY TYPE CODE TESTS RESULT OUT OF REFERENCE UNITS RANGE LAB APTT(LOINC 22.0-34.0 sec ) Activated PTT 32.9 Performed By: #### APTT #### [place] [address] BRIEF OP NOT Observed: 01/12/2018 Status: COMPLETED Source: [place] 11:22 AM CLINIC OTHER CAMPUS REPOSITORY HNO ID: [id number] Author: Dionicio Stevens Service: Vascular Surgery Author Type: Resident Type: Brief Op Note Filed: 01/12/2018 11:29 AM Note Text: BRIEF OPERATIVE / PROCEDURE NOTE LOG ID: [id number] SURGERY/PROCEDURE DATE: 01/12/2018 INCISION/PROCEDURE START TIME: 8:34 AM INCISION CLOSE/PROCEDURE END TIME: 11:05 AM SURGEON(S)/PROCEDURALIST(S) AND VISUAL ARTS TEACHER(S): Surgeon(s) and Role: * Venkat Paniagua - Primary * Dionicio (Luther Stevens - Resident - Assisting * Araceli Reynaga - Assisting Physician Industrial Laborer: Hailey Norris (Pa) SURGERY/PROCEDURE(S): Second Look Laparotomy, Abdominal Washout, Re-Packing, Repair of Serosal Tears x2, Abthera VAC Placement ANESTHESIA: General FINDINGS: No obvious source of bleeding, Aortic Repair intact without anastomotic breakdown, generalized oozing from retroperitoneum and soft tissue that improved with continued resuscitation/holding pressure/cautery INTRA-OP FLUIDS: 4 of pRBCs 4 of FFP 3 of Plt 1 of Cryo 5L Crystaloid ESTIMATED BLOOD LOSS: unmeasurable amount, estimated near [id number] SPECIMENS: None COMPLICATIONS: None PRE-OP/PRE-PROCEDURE DIAGNOSIS: Open Abdomen, s/o AAA Repair, Coagulopathy, Hemorrhagic Shock POST-OP/POST-PROCEDURE DIAGNOSIS: BLEEDING IN COAGULOPATHIC PATIENT, NO SPECIFIC BLEEDING SITE IDENTIFIED, DIFFUSE COAGULOPATHIC BLEEDING Same SIGNATURE: Dionicio Stevens MD PATIENT NAME: Naveen Akins DATE: January 12, 2018 TIME: 11:22 AM PAGER/CONTACT #: ANES PREOP Observed: 01/12/2018 Status: COMPLETED Source: [place] 10:25 AM [facility] REPOSITORY [facility] ID: [id number] Author: Moy Quinones Service: Anesthesiology Author Type: Physician Type: Anesthesia PreOp Filed: 01/12/2018 10:28 AM Note Text: ANESTHESIOLOGY DAY OF SURGERY NOTE SERVICE DATE: 01/12/2018 SERVICE TIME: 10:25 AM : 1940 Procedure(s) (LRB): REPAIR RUPTURED ANEURYSM, ABDOMINAL AORTA WITH PATCH GRAFT (N/A) Surgeon(s): Venkat Greenberg (Res) Rodney Reynaga There is no height or weight on file to calculate BMI. Most recent hematocrit and potassium results: Hematocrit 35.7 01/12/2018 Potassium 4.4 11/14/2017 ANES DOS/PREOP NOTE: Vitals: 01/12/18 0531 Pulse: 102 SpO2: 90% ACTIVE PROBLEM LIST Gallstone Pancreatitis Ruptured Abdominal Aortic Aneurysm (Aaa) (Hcc) No past medical history on file. PAST SURGICAL HISTORY Procedure Laterality Date - L'SCOPE BENJI W/CHOLANGIOGRAPHY 12-23-09 - REPAIR UMBILICAL NATAN,5+Y/O,REDUC 05-28-09 FAMILY HISTORY Problem Relation Age of Onset - Coronary Artery Disease Father - None Mother Social History: Social History Substance Use Topics - Smoking status: Never Smoker - Smokeless tobacco: Not on file - Alcohol use No No current facility-administered medications on file prior to encounter. Current Outpatient Prescriptions on File Prior to Encounter: metoprolol succinate(TOPROL XL 50 MG 24 HR TAB) Take one(1) tablet daily. ASPIRIN 325 MG TAB Take one(1) tablet daily. triamterene/hydrochlorothiazid(DYAZIDE 37.5 MG-25 MG CAP) take one half (1/2) tablet daily LIPITOR 10 MG TAB Take one(1) tablet daily. Current Facility-Administered Medications: [MAR Hold due to Transfer] insulin regular iv infusion 250 units in NaCl 0.9% 250 mL - AK CARD SURG NOMOGRAM 0-12 Units/hr INTRAVENOUS CONTINUOUS Jack Regula [MAR Hold due to Transfer] dextrose 40 % 15 g 15 g ORAL PRN Jack Regula Or [MAR Hold due to Transfer] glucagon 1 mg injection (GLUCAGEN) 1 mg INTRAMUSCULAR PRN Jack Regula Or [MAR Hold due to Transfer] dextrose 50% in water 25 mL syringe 12.5 g INTRAVENOUS PRN Jack Regula [MAR Hold due to Transfer] Chlorhexidine Gluconate 0.12 % 15 mL (PERIDEX) 15 mL ORAL q 6 HR Emilie (Res) Cardella [MAR Hold due to Transfer] magnesium sulfate 1 g in D5W 100 mL 1 g INTRAVENOUS PRN Emilie (Res) Cardella [MAR Hold due to Transfer] magnesium sulfate in water 2 g in sterile water 50 ml 2 g INTRAVENOUS PRN Emilie (Res) Cardella [MAR Hold due to Transfer] ceFAZolin iv piggyback 1 g in D5W (iso-osmotic) 50 mL (ANCEF) 1 g INTRAVENOUS q 8 H Emilie (Res) Cardella [MAR Hold due to Transfer] fentaNYL 20 mcg/mL iv infusion in NaCl 0.9% 100 mL 25-150 mcg/hr INTRAVENOUS CONTINUOUS Emilie (Res) Cardella [MAR Hold due to Transfer] nitroglycerin 100 mg in D5W 250 mL 5-200 mcg/min INTRAVENOUS CONTINUOUS Emilie (Res) Cardella [MAR Hold due to Transfer] NaCl 0.9% iv infusion 150 mL/hr INTRAVENOUS CONTINUOUS Emilie (Res) Cardella [MAR Hold due to Transfer] pantoprazole 40 mg injection (PROTONIX) 40 mg INTRAVENOUS DAILY (6 AM) Emilie (Res) Cardella [MAR Hold due to Transfer] vasopressin 20 Units in D5W 100 mL (VASOSTRICT) 0.04 Units/min INTRAVENOUS CONTINUOUS Katie (Res) Fatchikova [MAR Hold due to Transfer] NORepinephrine 16 mg in D5W 250 mL (LEVOPHED) 0.6-30 mcg/min INTRAVENOUS CONTINUOUS Dionicio (Res) Stevens Allergies: ALLERGIES No Known Allergies DOS EXAM: Adequate NPO status: Yes Anesthetic risks, benefits, alternatives, personnel and consent discussed: Yes Patient agrees to proceed: Yes Previous Anesthesia: No history of adverse event. Airway Assessment: Patient intubated or has existing tracheostomy. Symptoms of Sleep Apnea: Male gender Dentition: intubated Additional Physical Exam: Lungs: Patient health status unchanged since recent history and physical. See history and physical for exam findings. Cardiac: Patient health status unchanged since recent history and physical. See history and physical for exam findings. Additional Pertinent Findings: N/A Blood Products: Not anticipated for this procedure. Anesthetic Plan: General, Standard ASA Monitors Pain Management Plan: Parenteral or Oral ASA Class: 5 Other Medical Problems: coagulopathy, uncontrolled bleeding Chronic Beta Lyric medication administered within 24 hours: N/A I have interviewed and examined the patient. I have reviewed the medical record and/or the pre-anesthesia evaluation, pertinent labs, and test results. Significant changes in the patient's condition since the History and Physical, not otherwise documented in primary service progress notes: Yes, patient on pressors, uncontrolled bleeding This contains updated information obtained within 48 hours of Surgery/Procedure. SIGNATURE: Moy Quinones MD PATIENT NAME: Naveen Akins DATE: January 12, 2018 TIME: 10:25 AM CSN: [id number] BLOOD GAS ARTERIAL Collected: 01/12/2018 Status: F Source: [facility] 10:05 AM HEALTH SYSTEM REPOSITORY TYPE CODE TESTS RESULT OUT OF REFERENCE UNITS RANGE LAB TEMP(LOINC ) Temperature 37.0 LAB FIO2B(LOIN % C) FIO2 arterial CSL 21 LAB PHCSL(LOIN 7.350-7.450 C) Low pH Arterial CSL 7.335 LAB PCO2A(LOIN 36.0-46.0 mm Hg C) PCO2 Arterial CSL 42.0 LAB PO2CS(LOIN 85.0-96.0 mm Hg C) PO2 High Arterial CSL 198.2 LAB HCO3(LOINC 22.0-26.0 mEq/L ) Low HCO3- 21.9 LAB BASEE(LOIN -2.5 to 2.5 mEq/L C) Base Excess -3.8 LAB O2%SA(LOIN 95.0-98.0 % C) Art. O2% High Saturation 99.5 Performed By: #### ABGCS #### [facility] [address] [address] HEMOGLOBIN CSL Collected: 01/12/2018 Status: F Source: [facility] 10:[address] [place] [address] SYSTEM REPOSITORY TYPE CODE TESTS RESULT OUT OF REFERENCE UNITS RANGE LAB HGBCS(LOIN 14.0-18.0 g/dL C) Low Hemoglobin CSL 10.0 Performed By: #### HGBCS #### [place] [address] HEMATOCRIT CSL Collected: 01/12/2018 Status: F Source: [facility] 10:[address] [place] [address] SYSTEM REPOSITORY TYPE CODE TESTS RESULT OUT OF REFERENCE UNITS RANGE LAB HCTCS(LOIN 42.0-52.0 % C) Low Hematocrit CSL 29.9 Performed By: #### HCTCS #### [place] [address] POTASSIUM CSL Collected: 01/12/2018 Status: F Source: [place] [address]:[facility] REPOSITORY TYPE CODE TESTS RESULT OUT OF REFERENCE UNITS RANGE LAB KCSL(LOINC 3.5-5.0 mEq/L ) Low Potassium CSL 2.9 Performed By: #### KCSL #### [place] [address] IONIZED CALCIUM CSL Collected: 01/12/2018 Status: F Source: [place] [address]:[address] [place] [address] SYSTEM REPOSITORY TYPE CODE TESTS RESULT OUT OF RANGE REFERENCE UNITS LAB CALC(LOINC) 4.43-4.93 mg/dL CA++ CSL 4.69 LAB CA@PH(LOINC 4.36-4.73 mg/dL ) CA++ at 4.54 PH 7.4 LAB PHICA(LOINC 7.350-7.450 ) Low pH 7.335 Performed By: #### CACSL #### [place] [address] PLATELET Collected: 01/12/2018 Status: F Source: [place] [address]:[address] [place] [address] SYSTEM REPOSITORY TYPE CODE TESTS RESULT OUT OF REFERENCE UNITS RANGE LAB PLTI(LOINC) 141-365 thou/cmm Low Platelet 59 Performed By: #### PLTI #### [place] [address] PROTIME Collected: 01/12/2018 Status: F Source: [facility] 10:[address] [place] [address] SYSTEM REPOSITORY TYPE CODE TESTS RESULT OUT OF REFERENCE UNITS RANGE LAB PTI(LOINC) 9.3-11.9 sec Prothrombin High Time 14.5 LAB INR(LOINC) INR 1.45 Result Comment: Standard Therapy 2.0-3.0 High Dose 2.5-3.5 Performed By: #### PT #### [place] [address] ACTIVATED PTT Collected: 01/12/2018 Status: F Source: [address] SYSTEM REPOSITORY TYPE CODE TESTS RESULT OUT OF REFERENCE UNITS RANGE LAB APTT(LOINC 22.0-34.0 sec ) High Activated PTT 40.2 Performed By: #### APTT #### [place] [address] D-DIMER QUANTITATIVE Collected: 01/12/2018 Status: F Source: [address] SYSTEM REPOSITORY TYPE CODE TESTS RESULT OUT OF RANGE REFERENCE UNITS LAB DDMRQ(LOINC <500 ng/ml(FEU) ) High alert D-Dimer, [address] Quant. Result Comment: The cutoff level recommended for the exclusion of deep vein thrombosis (DVT) or pulmonary embolism (PE) is 500 ng/mL(FEU). It is recommended that DVT or PE exclusion be restricted to suspected outpatients with a low to moderate pretest probability model. Performed By: #### DDMRN #### [place] [address] FIBRINOGEN Collected: 01/12/2018 Status: F Source: [address] SYSTEM REPOSITORY TYPE CODE TESTS RESULT OUT OF REFERENCE UNITS RANGE LAB FIB(LOINC) 180-430 mg/dl Fibrinogen 220 Performed By: #### FIB #### [facility] [address] [address] SCHISTOCYTE SCAN Collected: 01/12/2018 Status: F Source: [facility] 10:05 AM HEALTH SYSTEM REPOSITORY TYPE CODE TESTS RESULT OUT OF REFERENCE UNITS RANGE LAB SCHIS(LOIN None C) Schistocyte Scan None Performed By: #### SCHIS #### [place] [address] FSP Collected: 01/12/2018 Status: F Source: [facility] 10:05 AM HEALTH SYSTEM REPOSITORY TYPE CODE TESTS RESULT OUT OF RANGE REFERENCE UNITS LAB FSP(LOINC) <10 ug/ml Abnormal FSP >20<30 Performed By: #### FSP #### [place] [address] PHERESED PLATELETS Collected: 01/12/2018 Status: F Source: [facility] 9:47 AM HEALTH SYSTEM REPOSITORY TYPE CODE TESTS RESULT OUT OF REFERENCE UNITS RANGE LAB PPHR(LOINC) Pheresed Plts Done unit 1 Performed By: #### PPHRS #### [place] [address] HISTORY PHYSICAL Observed: 01/12/2018 Status: COMPLETED Source: [place] 9:41 AM [facility] REPOSITORY HNO ID: [id number] Author: John TylerRn) Bernard RN Service: Nursing Author Type: Registered Nurse Type: HANDP Filed: 01/12/2018 9:42 AM Note Text: Family updated at this time on case status NURSING PROG Observed: 01/12/2018 Status: COMPLETED Source: [place] 8:26 AM [facility] REPOSITORY HNO ID: [id number] Author: Jose TylerRn) Romero RN Service: Nursing Author Type: Registered Nurse Type: Nursing Progress Note Filed: 01/12/2018 8:32 AM Note Text: 0700 starting of shift. 77 year old s/p emergent repair of ruptured AAA. Resuscitate manual bagging. Transfusion of PRBC and fluid. hemovac drained 1200cc or more. Dr. Paniagua in room residents in room. Back to OR by 0800. CRYOPRECIPITATE 5 PACK Collected: 01/12/2018 Status: F Source: [place] 8:23 AM [facility] REPOSITORY TYPE CODE TESTS RESULT OUT OF REFERENCE UNITS RANGE LAB CRY1S(MARCIE Brown) Cryoprecipitate 5-Pk x1 Done Performed By: #### CRY5S #### [facility] [address] [place] [id number] PROGRESS Observed: 01/12/2018 Status: COMPLETED Source: [place] 7:56 AM [facility] OTHER CAMPUS REPOSITORY HNO ID: [id number] Author: Dionicio Stevens Service: Vascular Surgery Author Type: Resident Type: Progress Notes Filed: 01/12/2018 8:02 AM Note Text: Attestation signed by Venkat Paniagua at 01/12/2018 4:35 PM I concur with the findings in the resident's note. As we have basically coagulopathic bleeding going on at this point in time I feel our only option is to take the patient to the operating room and make sure that there is nothing that is actively bleeding they can be controlled with either some form of suture or ligation. When we left the operating room basically we had coagulopathic bleeding however given the fact that the patient has put out 1500 cc of relatively bloody versus serosanguineous fluid I feel pushed to take him back open the abdomen and even if necessary try to control his coagulopathy with resuscitation in the operating room versus in the intensive care unit. This is discussed with the family and they concur with my findings and give consent for this procedure. Vascular Surgery Patient seen and examined for continued hypotension, hypothermia, coagulapathy, desaturations not improving despite massive transfusion protocol, rapid infuser/warmer, pressors, manual bagging. Abdomen S, mildly D, NT, VAC with bloody output in canister and around seal. ~1200 output post-op, extremities warm with palpable pulses. Dr. Paniagua discussed with family --> will return to OR now. Dionicio Stevens MD PGY-4 Pager: [phone] 01/12/2018, 8:02 AM HGB Collected: 01/12/2018 Status: F Source: [facility] 7:15 AM HEALTH SYSTEM REPOSITORY TYPE CODE TESTS RESULT OUT OF RANGE REFERENCE UNITS LAB HGBI(LOINC) 13.7-17.5 g/dL Low Hgb 12.2 Performed By: #### HGBI #### [place] [address] HCT Collected: 01/12/2018 Status: F Source: [facility] 7:15 AM HEALTH SYSTEM REPOSITORY TYPE CODE TESTS RESULT OUT OF RANGE REFERENCE UNITS LAB HCTI(LOINC) 40.1-51.0 % Low Hct 35.7 Performed By: #### HCTI #### [place] [address] BLOOD GAS ARTERIAL Collected: 01/12/2018 Status: F Source: [facility] 7:15 AM HEALTH SYSTEM REPOSITORY TYPE CODE TESTS RESULT OUT OF REFERENCE UNITS RANGE LAB TEMPA(LOIN C) Temperature 37.0 LAB PH(LOINC) 7.350-7.450 pH Arterial 7.377 LAB PCO2(LOINC 36.0-46.0 mm Hg ) PCO2 Arterial 42.5 LAB PO2(LOINC) 85.0-96.0 mm Hg Low PO2 Arterial 64.3 LAB HCO3A(LOIN 22.0-26.0 mEq/L C) HCO3- 24.4 LAB O2%A(LOINC 95.0-98.0 % ) Low O2% Sat Arterial 93.1 LAB BASEX(LOIN -2.5 to 2.5 mEq/L C) Base Excess -0.8 LAB FIO2(LOINC % ) FIO2 Value Not Given Performed By: #### ABG #### [place] [address] PROTIME Collected: 01/12/2018 Status: F Source: [facility] 7:15 AM HEALTH SYSTEM REPOSITORY TYPE CODE TESTS RESULT OUT OF REFERENCE UNITS RANGE LAB PTI(LOINC) 9.3-11.9 sec Prothrombin High Time 13.9 LAB INR(LOINC) INR 1.40 Result Comment: Standard Therapy 2.0-3.0 High Dose 2.5-3.5 Performed By: #### PT #### [facility] [address] [place] [address] ACTIVATED PTT Collected: 01/12/2018 Status: F Source: [facility] 7:15 AM HEALTH SYSTEM REPOSITORY TYPE CODE TESTS RESULT OUT OF REFERENCE UNITS RANGE LAB APTT(LOINC 22.0-34.0 sec ) High Activated PTT 35.1 Performed By: #### APTT #### [facility] [address] [place] [address] CHEST 1 VIEW Observed: 01/12/2018 Status: F Source: [facility] 6:51 AM HEALTH SYSTEM REPOSITORY Performed at [facility] APPROVED BY: AIMEE FORREST MD TECHNIQUE: CHEST 1 VIEW X-RAY EXAM DATE: 01/12/2018 6:51 AM COMPARISON STUDIES: None CLINICAL HISTORY: Evaluate tube, line or lead position RESULT: ET tube 4.2 cm proximal to the kianna. NG tube courses into the stomach beyond the inferior film margin. Right IJ central line terminates at the cavoatrial junction. Low lung volumes accentua matt cardiomediastinal silhouette and pulmonary vascular crowding/prominence. Small layering left pleural effusion. Interstitial prominence. No gross pneumothorax. Left lung base/retrocardiac opacity. IMPRESSION: Lines and tubes as described Small layering left pleural effusion Left lung base/retrocardiac opacity may reflect atelectasis or infection Interstitial prominence, consider interstitial edema, atypical pneumonia or chronic interstitial change PROGRESS Observed: 01/12/2018 Status: COMPLETED Source: [place] 6:21 AM CLINIC OTHER CAMPUS REPOSITORY HNO ID: [id number] Author: Dionicio (Luther Stevens Service: Vascular Surgery Author Type: Resident Type: Progress Notes Filed: 01/12/2018 7:46 AM Note Text: Attestation signed by Venkat Paniagua at 01/12/2018 4:34 PM I saw and evaluated the patient at 30 and concur with the above findings. He is still very critically ill status post ruptured abdominal aortic aneurysm. This patient came in with full cardiopulmonary resuscitation being performed from the helicopter ride in to the operating room and for about the first 15-20 minutes in the operating room. Once we had adequate resuscitation lines in and I was able to place an aortic balloon occluder the patient was able to be resuscitated to a supportable rhythm and blood pressure. Currently he is hypothermic and has a consumptive coagulopathy and we are trying to correct these and see if we can avoid returning to the operating room as most of the bleeding that we saw at the end of the case was diffuse oozing from the tissues that had been disrupted at the time the aneurysm ruptured. Vascular Surgery Progress Note SERVICE DATE: 01/12/2018 Vascular AND Thoracic Surgery Service Pager: For questions or concerns Mon-Fri 6a-5p please page [phone]. After 5pm and on Weekends and Holidays, please page [phone] if in ICU or [phone] if on RNF. Subjective SUBJECTIVE: Emergent Aortic repair overnight Diet: DIET NPO Objective OBJECTIVE: Vitals: No data recorded. Pulse 102 SpO2 90% O2 Therapy: Ventilator IANDO: Date 01/11/18699 - 01/12/18 0659(Not Admitted) 01/12/18699 - 01/13/18 0659 Shift [id number] 0651-4362 1112-6002 24 Hour Total 2092-0068 7670-0399 2013-2276 24 Hour Total I N T A K E Shift Total O U T P U T Tubes 500 500 Drain/Tube Output (Drain/Tube 01/12/18 0100 Hemovac Midline Anterior Abdomen) 500 500 Shift Total 500 500 Weight (kg) MEDICATIONS Current Facility-Administered Medications: insulin regular iv infusion 250 units in NaCl 0.9% 250 mL - [place] CARD SURG NOMOGRAM 0-12 Units/hr INTRAVENOUS CONTINUOUS dextrose 40 % 15 g 15 g ORAL PRN Or glucagon 1 mg injection (GLUCAGEN) 1 mg INTRAMUSCULAR PRN Or dextrose 50% in water 25 mL syringe 12.5 g INTRAVENOUS PRN Labs: Recent Labs 01/12/18 0509 01/12/18 0413 01/12/18 0410 01/12/18 0140 HB -- -- -- -- 5.2* HCT -- -- -- -- 16.8* INR -- 1.56 -- -- -- PH 7.350 -- 7.335* < > -- PCO2 49.2* -- 43.3 < > -- PO2 74.2* -- 86.0 < > -- BE 0.5 -- -3.1 < > -- < > = values in this interval not displayed. Exam: GENERAL: No distress NEURO: Intubated, sedated HEENT: normocephalic, atraumatic LUNGS: Unlabored breathing O2 Therapy: Ventilator CARDIAC: sinus tachy, hypotensive requiring LEVO ABDOMEN: Soft, non-tender, non-distended, Abthera VAC with sang output EXTREMITIES: MAK, No deformities, No edema, palpable pulses SKIN: Skin color, texture, turgor normal, No rashes or lesions ASSESSMENT AND PLAN: There are no active hospital problems to display for this patient. 77 year old male with Ruptured AAA s/p Emergent Repair - Vent mgmt per MICU - NPO/IVF - Massive transfusion protocol for Hemorrhagic Shock and Coagulopathy - Levo/Vaso - q6 labs - possible return to OR today pending resuscitation Assessment and plan discussed with attending: Dr. Paniagua SIGNATURE: Dionicio Stevens MD PATIENT NAME: Naveen Akins DATE: January 12, 2018 TIME: 6:22 AM Vascular AND Thoracic Surgery Service Pager: For questions or concerns Mon-Tue 6a-5p please page [phone]. After 5pm and on Weekends and Holidays, please page [phone] if in ICU or [phone] if on RNF. PROGRESS Observed: 01/12/2018 Status: COMPLETED Source: [place] 6:15 AM CLINIC OTHER CAMPUS REPOSITORY HNO ID: [id number] Author: Ekaterina Mckeon Service: Pulmonary Disease Author Type: Physician Type: Progress Notes Filed: 01/12/2018 6:40 AM Note Text: CRITICAL CARE PROGRESS NOTE SERVICE DATE: January 12, 2018 SERVICE TIME: 6:15 AM Admission Date: 01/12/2018 AGE: [id number] year old LOS: 0 days REASON FOR ICU ADMISSION: Ruptured AAA Acute blood loss anemia Cardiac arrest Anticipated acute hypoxic post-operative respiratory insufficiency Subjective Patient is a 77 year old man emergently transferred to [facility] from [place] for a ruptured abdominal aortic aneurysm. He had a systolic blood pressure in the 60's at [place] which fell to the 50's en route with eventual arrest before arrival at [facility]. He was receiving CPR at the time of his arrival when he went directly to the OR. He underwent an open repair of his ruptured abdominal aortic aneurysm with massive transfusion and volume transfusion (received 16 units PRBC's [getting the 17th now], 13 units FFP, 3 units of cryoprecipitate, and 1250 ml cell saver along with 10 L crystalloid). He is currently on norepinephrine drip at 5 mcg/minute. Patient is in bed intubated/on the ventilator without any current distress though he has not yet fully recovered from general anesthesia and paralytics. Objective VITAL SIGNS: Pulse 102 SpO2 90% 24 hour Intake AND Output: Intake/Output Summary (Last 24 hours) at 01/12/18614 Last data filed at 01/12/18530 Gross per 24 hour Intake 0 ml Output 500 ml Net -500 ml PHYSICAL EXAM: Right internal jugular introducer is well secured in place. RRR Clear to auscultation without wheezing bilaterally anteriorly. No bowel sounds, open abdominal wound with Wound Vac in place No pedal edema bilaterally. Dry, intact skin with fair turgor. VENTILATOR INFORMATION: WEANING DATA: Settings: Invasive Ventilator Mode: Pressure Regulated Volume Control (01/12/18530) %FIO2: 100 Set Ventilator Respiratory Rate (BPM): 14 Tidal Volume Set (mL): 500 PEEP/CPAP (cm H2O): 5 Patient Data: Inspiratory:Expiratory Ratio: 1:3.7 Peak Inspiratory Pressure (cm H2O): 23 Lines, Drains, and Airways Line Peripheral Admission to Hospital Left Antecubital 18 Gauge -- days Peripheral Admission to Hospital Right Hand 22 Gauge -- days Arterial Line 01/12/18 0238 Arterial Line Left Brachial less than 1 day Central Line Double Lumen 01/12/18 023 Right Neck less than 1 day Drain Indwelling Urinary Catheter Admission to Hospital Sanchez 16 Fr -- days Drain/Tube 01/12/18 010 Hemovac Midline Anterior Abdomen less than 1 day GI Feed/Drain 01/12/18 0100 less than 1 day INPATIENT MEDICATIONS: Current hospital medications: insulin regular iv infusion 250 units in NaCl 0.9% 250 mL - AK CARD SURG NOMOGRAM 0-12 Units/hr INTRAVENOUS CONTINUOUS dextrose 40 % 15 g 15 g ORAL PRN glucagon 1 mg injection (GLUCAGEN) 1 mg INTRAMUSCULAR PRN dextrose 50% in water 25 mL syringe 12.5 g INTRAVENOUS PRN DATA: BLOOD GAS: Recent Labs 01/12/18 0509 01/12/18 0410 01/12/18 0337 01/12/18 0311 01/12/18 0240 01/12/18 0211 01/12/18 0150 01/12/18 0143 RESPHCO3 26.5* 22.6 21.5* 19.3* 21.5* 13.8* 16.2* 15.7* PH 7.350 7.335* 7.363 7.337* 7.194* 7.242* 7.182* 7.294* PCO2 49.2* 43.3 38.7 37.0 57.1* 32.8* 44.3 33.1* [id number] 95.8 96.9 99.1* 99.8* 99.8* 99.7* 99.4* 99.4* CBC: Recent Labs 01/12/18 0140 HB 5.2* HCT 16.8* COAG: Recent Labs 01/12/18 0413 APTT 82.2* INR 1.56 CHEM: Recent Labs 01/12/18 0509 01/12/18 0410 01/12/18 0337 01/12/18 0311 01/12/18 0240 01/12/18 0211 01/12/18 0143 ICAL 7.66* 4.44 4.65 4.12* 3.38* 2.60* 3.71* URINALYSIS: Recent Labs 01/12/18 0509 01/12/18 0410 01/12/18 0337 01/12/18 0311 01/12/18 0240 01/12/18 0211 01/12/18 0150 01/12/18 0143 PH 7.350 7.335* 7.363 7.337* 7.194* 7.242* 7.182* 7.294* Assessment/Plan ASSESSMENT: Ruptured AAA Acute blood loss anemia Cardiac arrest Anticipated acute hypoxic post-operative respiratory insufficiency PLAN: Received 16 units PRBC's (getting the 17th now), 13 units FFP, 3 units of cryoprecipitate, and 1250 ml cell saver along with 10 L crystalloid. On a norepinephrine drip at 5 mcg/minute currently. Check repeat labs. Replenish calcium, platelets, clotting factors, and PRBC's as needed since he is possibly in a consumptive coagulopathy. Continue full ventilator support without wean for now. Discussed with both Dr. Corie Peralta (General Surgery PGY5) and Dr. Lotus Paniagua (Vascular Surgery) outside of patient's room. Continue supportive care. Continue ICU monitoring. This patient has a high probability of sudden, clinically significant deterioration, which requires the highest level of physician preparedness to intervene urgently. I managed/supervised life or organ supporting interventions that required frequent physician assessment. I devoted my full attention to the direct care of this patient for the amount of time indicated below. Time I spent with family or surrogate(s) is included only if the patient was incapable of providing the necessary information or participating in medical decision making. Time devoted to teaching and to any procedures I billed separately is not included. PROGNOSIS: Guarded-poor Code status: Full Code. Discussed with Registered Nurses and General Surgery Residents. Critical Care Documentation: The patient has the following organ/system impairment(s): Acute blood loss and Circulatory shock, Anticipated acute hypoxic post-operative respiratory insufficiency Time spent providing critical care services: 40 minutes. SIGNATURE: Ekaterina Mckeon MD [facility] PAGER:[phone] DATE of SERVICE: January 12, 2018 TIME of SERVICE: 6:15 AM BRIEF OP NOT Observed: 01/12/2018 Status: COMPLETED Source: [place] 6:04 AM [facility] OTHER CAMPUS REPOSITORY HNO ID: [id number] Author: Venkat Paniagua Service: Vascular Surgery Author Type: Physician Type: Brief Op Note Filed: 01/15/2018 12:23 PM Note Text: BRIEF OPERATIVE / PROCEDURE NOTE LOG ID: [id number] Patient Name:Naveen Akins CSN: [id number] Surgery/Procedure Date: 01/12/2018 Incision/Procedure Start Time: 12:50 AM Incision Close/Procedure End Time: 5:06 AM Surgeon(s)/Proceduralist(s) and Industrial Laborer(s): Surgeon(s) and Role: * Venkat Paniagua - Primary * Emilie Peralta - Resident - Assisting Dyed Yarn Operator: Hailey Dixon SA Procedure(s): Procedure(s) (LRB): REPAIR ANEURYSM AORTIC ABDOMINAL (N/A) Anesthesia: General Findings: ruptured aaa Estimated Blood Loss: massive transfusion with unmeasurable EBL Intra-op fluids: 12 U PRBC, 13 plasma, 3 cryo, 2 platelets Cellsaver: 200-300cc (x5) UOP: 120 cc Specimens: contents of AAA Complications: Cardiac arrest, Massive transfusion, Hypothermia, Coagulopathy Pre-Op/Pre-Procedure Diagnosis: Ruptured abdominal aortic aneurysm with full cardiac arrest Post-Op/Post-Procedure Diagnosis: Ruptured abdominal aortic aneurysm with full cardiac arrest SIGNATURE: Emilie Peralta DO PATIENT NAME: Naveen Akins DATE: January 12, 2018 TIME: 6:04 AM PAGER/CONTACT #: [phone] EKG Observed: 01/12/2018 Status: F Source: [place] 5:34 AM [facility] OTHER CAMPUS REPOSITORY NAME : NAVEEN AKINS PID : [id number] : 1940 Gender : Male Race : ORD : Procedure Date : Jan 12 2018 05:34 Edit Date : Jan 12 2018 07:57 Diagnosis:NORMAL SINUS RHYTHM RSR' OR QR PATTERN IN V1 SUGGESTS RIGHT VENTRICULAR CONDUCTION DELAY NONSPECIFIC T WAVE ABNORMALITY PROLONGED QT ABNORMAL ECG NO PREVIOUS ECGS AVAILABLE Confirmed by MD Schumacher Anubhav ([id number]) on 01/12/2018 7:57:48 AM Ventricular Rate : 100 BPM Atrial Rate : 100 BPM P-R Interval : 132 ms QRS Duration : 80 ms Q-T Interval : 430 ms QTC Calculation(Bezet) : 554 ms P [place] : 14 degrees R [place] : -26 degrees T [place] : 85 degrees Test Reason : Location : 3 : [place] [address] Overread By : MD Schumacher Anubhav Editted By : MD Schumacher Anubhav Referred By : , Acquired by : Bartko,Betsey ANES PREOP Observed: 01/12/2018 Status: COMPLETED Source: [place] 5:26 AM CLINIC OTHER CAMPUS REPOSITORY O ID: [id number] Author: Jack Lam Service: Anesthesiology Author Type: Physician Type: Anesthesia PreOp Filed: 01/12/2018 5:28 AM Note Text: ANESTHESIOLOGY DAY OF SURGERY NOTE SERVICE DATE: 01/12/2018 SERVICE TIME: 12:26 AM : 1940 Procedure(s) (LRB): REPAIR ANEURYSM AORTIC ABDOMINAL (N/A) Surgeon(s): Venkat Phan (Edenilson) Kathryn There is no height or weight on file to calculate BMI. Most recent hematocrit and potassium results: Hematocrit 16.8 01/12/2018 Potassium 4.4 11/14/2017 ANES DOS/PREOP NOTE: Vitals: There were no vitals filed for this visit. ACTIVE PROBLEM LIST Gallstone Pancreatitis No past medical history on file. PAST SURGICAL HISTORY Procedure Laterality Date - L'SCOPE BENJI W/CHOLANGIOGRAPHY 05-28-09 - REPAIR UMBILICAL NATAN,5+Y/O,REDUC 05-28-09 FAMILY HISTORY Problem Relation Age of Onset - Coronary Artery Disease Father - None Mother Social History: Social History Substance Use Topics - Smoking status: Never Smoker - Smokeless tobacco: Not on file - Alcohol use No No current facility-administered medications on file prior to encounter. Current Outpatient Prescriptions on File Prior to Encounter: metoprolol succinate(TOPROL XL 50 MG 24 HR TAB) Take one(1) tablet daily. ASPIRIN 325 MG TAB Take one(1) tablet daily. triamterene/hydrochlorothiazid(DYAZIDE 37.5 MG-25 MG CAP) take one half (1/2) tablet daily LIPITOR 10 MG TAB Take one(1) tablet daily. Current Facility-Administered Medications: water for irrigation irrigation X (OR/PROCEDURE) PRN Venkat Paniagua 1,000 mL at 01/12/18 0223 NaCl 0.9% irrigation solution X (OR/PROCEDURE) PRN Venkat Paniagua 1,000 mL at 01/12/18 0429 heparin 1,000 unit/mL injection X (OR/PROCEDURE) PRN Venkat Paniagua 500 mL at 01/12/18 0230 insulin regular iv infusion 250 units in NaCl 0.9% 250 mL - AK CARD SURG NOMOGRAM 0-12 Units/hr INTRAVENOUS CONTINUOUS Jack Regula dextrose 40 % 15 g 15 g ORAL PRN Jack Regula Or glucagon 1 mg injection (GLUCAGEN) 1 mg INTRAMUSCULAR PRN Jack Regula Or dextrose 50% in water 25 mL syringe 12.5 g INTRAVENOUS PRN Jack Regula thrombin topical solution X (OR/PROCEDURE) PRN Venkat Paniagua 20,000 Units at 01/12/18 0359 NaCl 0.9% irrigation bag X (OR/PROCEDURE) PRN Venkat Paniagua 9,000 mL at 01/12/18 0504 heparin injection X (OR/PROCEDURE) PRN Venkat Paniagua 30,000 Units at 01/12/18 0506 Allergies: ALLERGIES No Known Allergies DOS EXAM: Adequate NPO Status: No, unknown Anesthetic Risks, Benefits, Alternatives, Personnel and Consent Discussed: No: Patient intubated and sedated. Patient agrees to proceed: Yes Previous Anesthesia: No history of adverse event Airway Assessment: Patient intubated or has existing tracheostomy. Symptoms of Sleep Apnea: None Dentition: Poor dentition Additional Physical Exam: Lungs: Patient health status unchanged since recent history and physical. See history and physical for exam findings. Cardiac: Patient health status unchanged since recent history and physical. See history and physical for exam findings. Additional Pertinent Findings: N/A Blood Products: Will accept Blood/Blood Products Anesthetic Plan: CVP A LINE MASSIVE TRANSFUSION Anesthetic Monitoring: Standard ASA Monitors and Invasive Hemodynamic Monitoring Arterial line, Introducer and CVP Pain Management Plan: Parenteral or Oral ASA Class: 5 Other Medical Problems: None Chronic Beta Lyric medication administered within 24 hours: N/A I have interviewed and examined the patient. I have reviewed the medical record and/or the pre-anesthesia evaluation, pertinent labs, and test results. Significant changes in the patient's condition since the History and Physical, not otherwise documented in primary service progress notes: No This contains updated information obtained within 48 hours of Surgery/Procedure. SIGNATURE: Jack Lam MD PATIENT NAME: Naveen Akins DATE: January 12, 2018 TIME: 5:26 AM CSN: [id number] BLOOD GAS ARTERIAL Collected: 01/12/2018 Status: F Source: [facility] 5:09 AM HEALTH SYSTEM REPOSITORY TYPE CODE TESTS RESULT OUT OF REFERENCE UNITS RANGE LAB TEMP(LOINC ) Temperature 37.0 LAB FIO2B(LOIN % C) FIO2 arterial CSL 21 LAB PHCSL(LOIN 7.350-7.450 C) pH Arterial CSL 7.350 Result Comment: RESULT RECHECKED LAB PCO2A(LOINC) 36.0-46.0 mm Hg PCO2 High Arterial CSL 49.2 LAB PO2CS(LOINC) 85.0-96.0 mm Hg PO2 Low Arterial CSL 74.2 LAB HCO3(LOINC) 22.0-26.0 mEq/L HCO3- High 26.5 LAB BASEE(LOINC) -2.5 to 2.5 mEq/L Base Excess 0.5 LAB O2%SA(LOINC) 95.0-98.0 % Art. O2% Saturation 95.8 Performed By: #### ABGCS #### [place] [address] HEMOGLOBIN CSL Collected: 01/12/2018 Status: F Source: [facility] 5:09 AM HEALTH SYSTEM REPOSITORY TYPE CODE TESTS RESULT OUT OF REFERENCE UNITS RANGE LAB HGBCS(LOIN 14.0-18.0 g/dL C) Low Hemoglobin CSL 10.1 Result Comment: RESULT RECHECKED CORRECTED: Previous result = 10.5, verified at 04:24 on 01/12/18. Performed By: #### HGBCS #### [place] [address] HEMATOCRIT CSL Collected: 01/12/2018 Status: F Source: [facility] 5:09 AM HEALTH SYSTEM REPOSITORY TYPE CODE TESTS RESULT OUT OF REFERENCE UNITS RANGE LAB HCTCS(LOIN 42.0-52.0 % C) Low Hematocrit CSL 30.3 Performed By: #### HCTCS #### [place] [address] SODIUM CSL Collected: 01/12/2018 Status: F Source: [facility] 5:09 AM HEALTH SYSTEM REPOSITORY TYPE CODE TESTS RESULT OUT OF REFERENCE UNITS RANGE LAB NACSL(LOINC 136-145 mEq/L ) High Sodium CSL 152 Performed By: #### NACSL #### [place] [address] POTASSIUM CSL Collected: 01/12/2018 Status: F Source: [facility] 5:09 AM HEALTH SYSTEM REPOSITORY TYPE CODE TESTS RESULT OUT OF REFERENCE UNITS RANGE LAB KCSL(LOINC 3.5-5.0 mEq/L ) Potassium CSL 3.9 Performed By: #### KCSL #### [place] [address] GLUCOSE CSL Collected: 01/12/2018 Status: F Source: [facility] 5:09 AM HEALTH SYSTEM REPOSITORY TYPE CODE TESTS RESULT OUT OF REFERENCE UNITS RANGE LAB GLUCS(LOINC 70-99 mg/dL ) High Glucose CSL 193 Performed By: #### GLUCS #### [place] [address] FROZEN PLASMA Collected: 01/12/2018 Status: F Source: [facility] ([facility]) 5:07 AM HEALTH SYSTEM REPOSITORY TYPE CODE TESTS RESULT OUT OF RANGE REFERENCE UNITS LAB FFP1(LOINC) FFP unit Done 1 LAB FFP2(LOINC) FFP unit Done 2 LAB FFP3(LOINC) FFP unit Done 3 LAB FFP4(LOINC) FFP unit Done 4 LAB FFP5(LOINC) FFP unit Done 5 Performed By: #### FFPXS #### [place] [address] FIBRINOGEN Collected: 01/12/2018 Status: F Source: [facility] 5:02 AM HEALTH SYSTEM REPOSITORY TYPE CODE TESTS RESULT OUT OF REFERENCE UNITS RANGE LAB FIB(LOINC) 180-430 mg/dl Fibrinogen 234 Performed By: #### FIB #### [place] [address] PLATELET Collected: 01/12/2018 Status: F Source: [facility] 5:02 AM HEALTH SYSTEM REPOSITORY TYPE CODE TESTS RESULT OUT OF REFERENCE UNITS RANGE LAB PLTI(LOINC) 141-365 thou/cmm Low Platelet 82 Result Comment: Smear scanned tech agrees with platelet count Performed By: #### PLTI #### [place] [address] NURSING PROG Observed: 01/12/2018 Status: COMPLETED Source: [place] 4:58 AM CLINIC OTHER CAMPUS REPOSITORY HNO ID: [id number] Author: Tim (Rn) MAGALY Bruner Service: Nursing Author Type: Registered Nurse Type: Nursing Progress Note Filed: 01/12/2018 5:02 AM Note Text: At approximately 0040 IA emergently entered into OR 10, CPR was being done during this time. CPR continued being performed as the case was starting, in total chest compressions were performed for approximately 15 minutes. PROGRESS Observed: 01/12/2018 Status: COMPLETED Source: [place] 4:43 AM [facility] REPOSITORY HNO ID: [id number] Author: Tim TylerRn) MAGALY Bruner Service: Nursing Author Type: Registered Nurse Type: Progress Notes Filed: 01/12/2018 4:44 AM Note Text: Patient abdomen retaining 4 lap sponges as surgical packing. X-ray to be take at later time. NURSING PROG Observed: 01/12/2018 Status: COMPLETED Source: [place] 4:41 AM [facility] REPOSITORY HNO ID: [id number] Author: Tim TylerRn) MAGALY Bruner Service: Nursing Author Type: Registered Nurse Type: Nursing Progress Note Filed: 01/12/2018 4:43 AM Note Text: Due to the emergent nature of the case an initial surgical count was not done. NURSING PROG Observed: 01/12/2018 Status: COMPLETED Source: [place] 4:34 AM [facility] REPOSITORY HNO ID: [id number] Author: Tim Garcia) MAGALY Bruner Service: Nursing Author Type: Registered Nurse Type: Nursing Progress Note Filed: 01/12/2018 4:41 AM Note Text: Per Dr. Paniagua no chest x-ray is going to be taken due to patient retaining lap sponges as surgical packing. SCHISTOCYTE SCAN Collected: 01/12/2018 Status: F Source: [facility] 4:13 AM HEALTH SYSTEM REPOSITORY TYPE CODE TESTS RESULT OUT OF REFERENCE UNITS RANGE LAB SCHIS(LOIN None C) Schistocyte Scan None Performed By: #### SCHIS #### [place] [address] PROTIME/APTT Collected: 01/12/2018 Status: F Source: [facility] 4:13 AM HEALTH SYSTEM REPOSITORY TYPE CODE TESTS RESULT OUT OF REFERENCE UNITS RANGE LAB PTI(LOINC) 9.3-11.9 sec Prothrombin High Time 15.5 LAB INR(LOINC) INR 1.56 Result Comment: Standard Therapy 2.0-3.0 High Dose 2.5-3.5 LAB APTT(LOINC) 22.0-34.0 sec High alert Activated PTT 82.2 Performed By: #### PTPTT #### [place] [address] D-DIMER QUANTITATIVE Collected: 01/12/2018 Status: F Source: [facility] 4:13 AM HEALTH SYSTEM REPOSITORY TYPE CODE TESTS RESULT OUT OF RANGE REFERENCE UNITS LAB DDMRQ(LOINC <500 ng/ml(FEU) ) High alert D-Dimer, >45028 Quant. Result Comment: The cutoff level recommended for the exclusion of deep vein thrombosis (DVT) or pulmonary embolism (PE) is 500 ng/mL(FEU). It is recommended that DVT or PE exclusion be restricted to suspected outpatients with a low to moderate pretest probability model. Performed By: #### DDMRN #### [place] [address] RAPID HIV AB. Collected: 01/12/2018 Status: F Source: [facility] 3:35 AM HEALTH SYSTEM REPOSITORY TYPE CODE TESTS RESULT OUT OF RANGE REFERENCE UNITS LAB 2HIVR(LOINC ) Rapid HIV NON-REACTIVE Ab Result Comment: A non-reactive result indicates that HIV-1 and/or HIV-2 antibodies have not been detected. However, it does not preclude previous exposure or infection with either HIV-1 and/or HIV-2. LAB P24AG(LOINC) NON-REACTIVE P24 Antigen Result Comment: A test result that is reactive for HIV-1 p24 antigen in the absence of reactivity for HIV-1 or HIV-2 antibodies may indicate an acute HIV-1 infection. Performed By: #### RHIV #### [place] [address] HEP. B SURFACE AG Collected: 01/12/2018 Status: F Source: [facility] 3:35 AM HEALTH SYSTEM REPOSITORY TYPE CODE TESTS RESULT OUT OF REFERENCE UNITS RANGE LAB HBSA(LOINC Negative ) Hep.B Surface Negative Ag Performed By: #### HBSAG #### [place] [address] HIV SCREEN Collected: 01/12/2018 Status: F Source: [facility] 3:35 AM HEALTH SYSTEM REPOSITORY TYPE CODE TESTS RESULT OUT OF REFERENCE UNITS RANGE LAB 3HIV(LOINC Nonreactive ) HIV Negative Screen Performed By: #### 3HIV #### [place] [address] HEPATITIS C ANTIBODY Collected: 01/12/2018 Status: F Source: [facility] 3:35 AM HEALTH SYSTEM REPOSITORY TYPE CODE TESTS RESULT OUT OF REFERENCE UNITS RANGE LAB HCV(LOINC) Negative Hepatitis C Ab Negative Performed By: #### HCVAB #### [facility] [address] [place] [address] HEP. B CORE AB IGM Collected: 01/12/2018 Status: F Source: [facility] 3:35 AM HEALTH SYSTEM REPOSITORY TYPE CODE TESTS RESULT OUT OF REFERENCE UNITS RANGE LAB HBCO(LOINC) Negative HB Core Negative Ab IgM Performed By: #### HBCOR #### [facility] [address] [place] [address] EMERGENCY DEPARTMENT Observed: 01/12/2018 Status: F Source: [place] SUMMARY 2:55 AM [facility] REPOSITORY [facility] Medical Records Department [address] [place] [address] Emergency Department Summary 01/11/18 2313 MR#: [id number] Acct: [id number] Name: MABLENAVEEN Rep #: [id number] : 1940 77 From: Kathy Dill PCP: Jack Olmedo MD Status: DEP ER - ER Visit Summary Date of Service: 01/11/18 Chief Complaint: [Syncope] History of Present Illness: The patient is a 77 M [who presents the emergency department with syncope. He started having left flank pain earlier this evening. He got very diaphoretic and nauseated. Is a known AAA that was diagnosed today that 6 cm. He has appointment with vascular surgery tomorrow. He has a history of coronary artery disease hypertension hyperlipidemia] Physical Examination: [] Blood pressure 126/74 heart rate 76 respiratory rate 24 pulse ox 97% WN WD mild distress PERRL EOMI MMM NECK supple and nontender, no masses RRR no murmur rub or gallop, no peripheral edema, symmetric radial pulses CTAB no respiratory distress ABDOMEN is soft and nontender, normal bowel sounds, palpable pulsatile mass skin the left lower quadrant, no rebound or guarding CVA discomfort SKIN is warm and dry no rashes pale slightly diaphoretic Alert and Oriented x3, CN II-XII in tact, no motor or sensory deficits, diffusely weak No lymphadenopathy Test Results: [] Emergency Department Course and Treatment: [Ultrasound was placed on the patient on arrival. Did confirm an aortic aneurysm. Patient will go straight to CAT scan. 2 large-bore IVs were established by EMS. He is on aspirin. He did have blood in his urine earlier today and was started on an antibiotic. CT showed ruptured abdominal aortic aneurysm. This was reviewed by myself. I did speak with the family requested [facility]. I spoke with [facility] vascular surgeon Dr. Paniagua who accepted the patient. He did request intubation. Patient was intubated with 20 of etomidate, 4 MAC blade during direct laryngoscopy cords were easily visualized 7.5 ET tube was passed without difficulty. Patient was biting on the tube after intubation and he was given succinyl choline Ativan and fentanyl. Placement was confirmed by colorimetric change bilateral breath sounds in appropriate position on chest x-ray. Trauma blood was started and he was transfused 4 units. We did contact [facility] who said that they were not flying at that time [facility] was contacted and agreed to transport via flight. Patient's blood pressure remained in the 50's-70s during this time.] Treatment Plan: [] Disposition: [Transfer] Impression: [Ruptured aortic aneurysm] This note was generated with [employer] dictation software. It may contain incorrect words, spelling, and punctuation that were not noted in review of the chart prior to signing ED Disposition - Plan for ED Patient: Disposition: [facility] Chief Complaint: Syncope Referrals: Jack Olmedo MD [Primary Care Provider] - What to do if you have Problems For any increased pain, shortness of breath, bleeding, nausea or vomiting, chest pain, or any unexpected problems, contact your Primary Care Provider. Call [facility] ([phone]) or report to the closest Emergency Room. Call 911 if necessary. 01/12/18 0255 <Electronically signed by Kathy Dill > Date Kathy Dill Cosigner Signature (If Indicated): Date CC: Jack Olmedo MD IONIZED CALCIUM CSL Collected: 01/12/2018 Status: F Source: [facility] 2:11 AM HEALTH SYSTEM REPOSITORY TYPE CODE TESTS RESULT OUT OF RANGE REFERENCE UNITS LAB CALC(LOINC) 4.43-4.93 mg/dL Low CA++ CSL 2.60 LAB PHICA(LOINC 7.350-7.450 ) Low pH 7.242 Result Comment: CORRECTED: Previous result = 2.400, verified at 02:37 on 01/12/18. LAB CA@PH(LOINC) 4.36-4.73 mg/dL Low CA++ at PH 7.4 2.40 Result Comment: CORRECTED: Previous result = 7.24, verified at 02:37 on 01/12/18. Performed By: #### CACSL #### [facility] [address] [place] [address] BLOOD GAS ARTERIAL Collected: 01/12/2018 Status: F Source: [facility] 1:50 AM HEALTH SYSTEM REPOSITORY TYPE CODE TESTS RESULT OUT OF REFERENCE UNITS RANGE LAB TEMPA(LOIN C) Temperature 37.0 LAB PH(LOINC) 7.350-7.450 Low pH Arterial alert 7.182 LAB PCO2(LOINC 36.0-46.0 mm Hg ) PCO2 Arterial 44.3 LAB PO2(LOINC) 85.0-96.0 mm Hg PO2 High Arterial 340.4 LAB HCO3A(LOIN 22.0-26.0 mEq/L C) Low HCO3- 16.2 LAB O2%A(LOINC 95.0-98.0 % ) O2% Sat High Arterial 99.4 LAB BASEX(LOIN -2.5 to 2.5 mEq/L C) Base Excess -11.0 LAB FIO2(LOINC % ) FIO2 Value Not Given Performed By: #### ABG #### [facility] [address] [address] BLD GAS ART AND Collected: 01/12/2018 Status: F Source: [facility] ION ID 1:43 AM HEALTH SYSTEM REPOSITORY TYPE CODE TESTS RESULT OUT OF REFERENCE UNITS RANGE LAB TEMPA(LOIN C) Temperature 37.0 LAB PH(LOINC) 7.350-7.450 Low pH Arterial 7.294 LAB PCO2(LOINC 36.0-46.0 mm Hg ) Low PCO2 Arterial 33.1 LAB PO2(LOINC) 85.0-96.0 mm Hg PO2 High Arterial 291.2 LAB HCO3A(LOIN 22.0-26.0 mEq/L C) Low HCO3- 15.7 LAB O2%A(LOINC 95.0-98.0 % ) O2% Sat High Arterial 99.4 LAB BASEX(LOIN -2.5 to 2.5 mEq/L C) Base Excess -9.9 LAB CHANG(LOIN 4.43-4.93 mg/dL C) Low Ionized Calcium 3.71 LAB CAPHG(LOIN 4.36-4.73 mg/dL C) Low Ionized Ca,PH7.4 3.51 LAB FIO2(LOINC % ) FIO2 Value Not Given Performed By: #### ABGIG #### [place] [address] HGB Collected: 01/12/2018 Status: F Source: [facility] 1:40 AM HEALTH SYSTEM REPOSITORY TYPE CODE TESTS RESULT OUT OF RANGE REFERENCE UNITS LAB HGBI(LOINC) 13.7-17.5 g/dL Low alert Hgb 5.2 Performed By: #### HGBI #### [place] [address] HCT Collected: 01/12/2018 Status: F Source: [facility] 1:40 AM HEALTH SYSTEM REPOSITORY TYPE CODE TESTS RESULT OUT OF RANGE REFERENCE UNITS LAB HCTI(LOINC) 40.1-51.0 % Low alert Hct 16.8 Performed By: #### HCTI #### [place] [address] PHERESED PLATELETS Collected: 01/12/2018 Status: F Source: [facility] 1:40 AM HEALTH SYSTEM REPOSITORY TYPE CODE TESTS RESULT OUT OF REFERENCE UNITS RANGE LAB PPHR(LOINC) Pheresed Plts Done unit 1 Performed By: #### PPHRS #### [place] [address] HISTORY PHYSICAL Observed: 01/12/2018 Status: COMPLETED Source: [facility] 1:21 AM CLINIC OTHER CAMPUS REPOSITORY HNO ID: [id number] Author: Manuela Gutierrez Service: Vascular Surgery Author Type: Resident Type: HANDP Filed: 01/12/2018 6:46 AM Note Text: Attestation signed by Venkat Paniagua at 01/12/2018 4:56 PM I saw and evaluated the patient. Discussed with the resident and agree with resident's findings and plan as documented in the resident's note. HISTORY AND PHYSICAL EXAMINATION SERVICE DATE: 01/12/2018 SERVICE TIME: 1:21 AM PRIMARY CARE PHYSICIAN: Megan Hurst MD Subjective CHIEF COMPLAINT: Ruptured AAA HPI: This is a 77 year old male transferred in critical condition from [facility] with diagnosed ruptured AAA. Patient was life-flighted to [facility]. Intubated at outside facility. Per EMS, patient went into cardiac arrest immediately prior to arrival and CPR was initiated. 4 U prbc given prior to arrival. Patient was taken emergently to OR on arrival. CPR was continued en route. No past medical history on file. PAST SURGICAL HISTORY Procedure Laterality Date - L'SCOPE BENJI W/CHOLANGIOGRAPHY 05-28-09 - REPAIR UMBILICAL NATAN,5+Y/O,REDUC 05-28-09 FAMILY HISTORY Problem Relation Age of Onset - Coronary Artery Disease Father - None Mother Social History Substance Use Topics - Smoking status: Never Smoker - Smokeless tobacco: Not on file - Alcohol use No Prescriptions Prior to Admission: metoprolol succinate(TOPROL XL 50 MG 24 HR TAB) Take one(1) tablet daily. Disp: Rfl: 0 ASPIRIN 325 MG TAB Take one(1) tablet daily. Disp: Rfl: 0 triamterene/hydrochlorothiazid(DYAZIDE 37.5 MG-25 MG CAP) take one half (1/2) tablet daily Disp: Rfl: 0 LIPITOR 10 MG TAB Take one(1) tablet daily. Disp: Rfl: 0 ALLERGIES No Known Allergies COMPLETE REVIEW OF SYSTEMS: See HPI for pertinent ROS Objective PHYSICAL EXAM: Physical Exam Performed: GENERAL: Intubated, unresponsive SKIN: +pallor LUNGS: mechanically ventilated CARDIAC: nonpalpable pulses ABDOMEN: soft, distended PULSES: nonpalpable on admission There were no vitals taken for this visit. DATA: Diagnostic tests reviewed for today's visit: Most recent labs and imaging results. Assessment/Plan 77 yo M w/ ruptured AAA, cardiac arrest, hemorrhagic shock -MTP -Cardiopulmonary resuscitation -stat OR for ex lap/ repair of AAA -D/w Dr. Paniagua SIGNATURE: Manuela Gutierrez MD PATIENT NAME: Naveen Akins DATE: January 12, 2018 TIME: 1:21 AM PAGER/CONTACT #: HOSP Observed: 01/12/2018 Status: COMPLETED Source: [facility] 12:00 AM CLINIC OTHER CAMPUS REPOSITORY Patient:Naveen Akins MRN: <[id number]> Height:5' 8(1.727 m) Weight:181 lb 3.5 oz (82.2 kg) Outpatient Medications as of 01/27/18: metoprolol succinate(TOPROL XL 50 MG 24 HR TAB) ASPIRIN 325 MG TAB triamterene/hydrochlorothiazid(DYAZIDE 37.5 MG-25 MG CAP) LIPITOR 10 MG TAB Admission/Clinic Administered Medications as of 01/27/18: Parenteral Nutrition - Adult hydrocortisone sodium succinate (PF) 50 mg injection (Solu-CORTEF) meropenem 500 mg in NaCl 0.9% 100 mL MB+ (MERREM) Parenteral Nutrition - Adult ipratropium-albuterol 3 mL nebulizer solution (DUONEB) budesonide 0.5 mg/2 mL 0.5 mg (PULMICORT) metoclopramide HCl 5 mg injection (REGLAN) pantoprazole 40 mg injection (PROTONIX) midazolam 100 mg in D5W 100 mL (VERSED) docusate sodium oral liquid 100 mg/10 mL (DIOCTO,COLACE) senna leaf extract 176 mg/5 mL 528 mg carboxymethylcellulose sodium 1-2 Drop (CELLUVISC) polyvinyl alcohol-povidone 1.4-0.6 % 1 Drop (REFRESH) heparin 1,000 unit/mL 4,000 Units injection heparin 5,000 Units injection NaCl 0.9% 1,000 mL iv bolus prismaSOL BGK 4 K / 2.5 mEq Ca/Liter 5,000 mL prismaSOL BGK 4 K / 2.5 mEq Ca/Liter 5,000 mL prismaSOL BGK 4 K / 2.5 mEq Ca/Liter 5,000 mL dextrose 40 % 15 g glucagon 1 mg injection (GLUCAGEN) dextrose 50% in water 25 mL syringe magnesium sulfate 1 g in D5W 100 mL magnesium sulfate in water 2 g in sterile water 50 ml fentaNYL 20 mcg/mL iv infusion in NaCl 0.9% 100 mL NORepinephrine 16 mg in D5W 250 mL (LEVOPHED) Chlorhexidine Gluconate 0.12 % 15 mL (PERIDEX) Problem List: 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] Ruptured abdominal aortic aneurysm (AAA) (HCC) [I71.3] DIC (disseminated intravascular coagulation) (HCC) [D65] Hemorrhagic shock (HCC) [R57.8] Acute respiratory failure (HCC) [J96.00] Cardiac arrest (HCC) [I46.9] Hypernatremia [E87.0] Hypokalemia [E87.6] Hypomagnesemia [E83.42] Hypophosphatemia [E83.39] Hyperchloremia [E87.8] Encephalopathy [G93.40] AAA (abdominal aortic aneurysm, ruptured) (HCC) [I71.3] Obesity, Class I, BMI 30-34.9 [E66.9] Allergies: No Known Allergies Date Verified:01/27/18 Lab Values Lab Value Units Date High Low POTA* 3.9 mEq/L 01/27/2018 5.1 3.5 MACIEL* 29.4 % 01/27/2018 51.0 40.1 Progress Notes (): Venkat Paniagua MD 01/15/2018 12:16 PM Signed [facility] - Operative Report SURGEON: Venkat Paniagua MD PATIENT NAME: NAVEEN AKINS CSN: [id number] DATE OF SURGERY: 01/12/2018 DATE OF : 1940 SEX/AGE: M/77 PATIENT TYPE: I HOSP SVC: LICO LOCATION: [id number] DATE OF SURGERY: 01/12/2018 SURGEON: Venkat Paniagua MD PREOPERATIVE DIAGNOSES: Ruptured abdominal aortic aneurysm, preoperative cardiac arrest. POSTOPERATIVE DIAGNOSES: Ruptured abdominal aortic aneurysm, preoperative cardiac arrest. PROCEDURE: Cardiopulmonary resuscitation, repair of ruptured abdominal aortic aneurysm using an 18 mm x 9 mm Hemashield graft, application of ABThera device. VISUAL ARTS TEACHER: Dr. Peralta; Meaghan Dixon SA. ANESTHESIA: General. HISTORY: This patient, we were notified of about 45 minutes ago when he was at [facility], found to be hypotensive and had a CT scan that showed a ruptured abdominal aortic aneurysm. We recommended that the patient be life flighted here and this was done. At some point during the LifeFlight, the patient became markedly hypotensive and then underwent cardiopulmonary arrest in the helicopter. He had CPR being performed when he was brought to the operating room. We continued the cardiopulmonary resuscitation with the efforts of the resident staff and Anesthesia and quickly performed the following. DESCRIPTION OF PROCEDURE: The patient was placed on the operating table in the supine position. A rapid ChloraPrep was done over the abdominal wall; however, a true sterile prep was not performed. Drapes were laid and the patient had a midline incision made in the following fashion. A midline incision was made from the xiphoid process down to the pubic process. This was carried through the skin and subcutaneous tissues. There was no bleeding noted in the skin or subcutaneous tissues. At this point in time, we continued the dissection down to the midline. I opened the midline very rapidly and retracted the bowel contents superiorly and laterally. While I was doing this, Anesthesia was placing resuscitative intravenous lines and arterial lines and CPR was being continued. The patient continued to have CPR and when I put my hand on the aorta, there was no pulse except with CPR. At that point, we went ahead and proceeded to rapidly open the retroperitoneum over the ruptured abdominal aortic aneurysm. There was a large amount of hemoperitoneum that had been noted. I rapidly placed my finger inside the aneurysm, opened the aneurysm and then proceeded to place an intra-aortic balloon occluded proximally. This was inflated and distally, I used direct pressure on the iliac vessels to control them initially. We allowed Anesthesia to try to resuscitate the patient further and at that point, they were able to get a blood pressure back and at this point, he had return of the spontaneous rhythm. He had been in V-tach, which we converted spontaneously. He, at this point in time, had ongoing dissection by myself of the iliac vessels proximally. Bilaterally, I isolated the proximal common iliac arteries and at this point, we went ahead and had both good proximal and distal control. I had to clamp at the level of the renal arteries and obstruct flow to the renal arteries with my clamp. At this point, we went ahead and proceeded to bring an 18 x 9 graft and trim it proximally. Once this was trimmed, we went ahead and proceeded to sew the proximal anastomosis. The proximal aortic neck was quite friable, but we were able to achieve an end-to-end anastomosis using a Ayala technique on the back wall and then 3-0 Prolene end-to-end anastomosis. There were several points that were bleeding after we moved the clamp down onto the graft and therefore these had pledgeted sutures placed. Once the pledgeted sutures were placed, we appeared to have good hemostasis proximally and turned our attention to the distal anastomosis. All this time, the patient had massive transfusion protocol being performed. He had a [place] infuser, infusing large amounts of blood. He had restored pressure with the assistance of massive transfusion and Levophed. His pressure was in the 90s to 100s range. At this point, we went ahead and proceeded to do our distal anastomoses, first on the left and then on the right. We were able to circumferentially cut the iliac vessels and perform end-to-end anastomosis with running continuous 5-0 Prolene, first on the left with flow restored and then on the right with flow restored. Once that was accomplished, we went ahead and proceeded to inspect each of these for hemostasis, particularly the right iliac vessel had very friable nature to it and was requiring multiple interrupted sutures to obtain a good hemostatic anastomosis. This was obtained as it was on the left. Both legs were open and we checked for distal pulses and we had good distal pulses in the lower extremities. At this point in time, we went ahead and proceeded to attempt to control hemostasis. The patient had a temperature of 32.7 degrees and had received a large amount of blood product. He had multiple areas of bruising and bleeding that when attempts were made, we actually created almost more bleeding, trying to stop the bleeding at each of these areas. With this being the case, we looked to see if we could find anything that was arterial that could be repaired, we did repair some small torn arterial branches in the mesentery. These were clipped. Other areas were suture ligated. Lumbars had been oversewn with 2-0 silk sutures. At that point, we had ongoing significant problems with hemostasis in general and it was felt that what we would do is packed the retroperitoneum with packs as this seemed to control the bleeding while we were in the operating room. Once we did that, we went ahead and proceeded to have reasonable control. Decision was made to put an ABThera on the patient, return to the intensive care unit for resuscitation and warming and see if we could correct his coagulopathy. The patient was returned to the intensive care unit in critical and unstable condition. At this point, he did have a blood pressure that was in the 120 range. His heart rate was approximately 100 and we felt that we could at least try several hours of resuscitation with blood products to see if we could obtain any control of the coagulopathy. The family was made aware of the extreme nature of his problem and his grave status. We were to observe the patient in the intensive care unit with the potential need for reexploration and definitely removal of the packs at some time in the near future. Venkat Paniagua MD Vascular Surgery DJW:modl /[id number] Venkat Paniagua MD 01/15/2018 12:18 PM Signed [facility] - Operative Report SURGEON: Venkat Paniagua MD PATIENT NAME: NAVEEN AKINS CSN: [id number] DATE OF SURGERY: 01/12/2018 DATE OF : 1940 SEX/AGE: M/77 PATIENT TYPE: I HOSP SVC: LICO LOCATION: [facility] 01/12/2018 SURGEON: Venkat Paniagua MD PREOPERATIVE DIAGNOSES: Postoperative hemorrhage with postoperative coagulopathy. POSTOPERATIVE DIAGNOSES: Postoperative hemorrhage with postoperative coagulopathy; coagulopathic bleeding noted with no discrete bleeding focus identified. PROCEDURE: Exploration of abdominal wound and retroperitoneum; control of bleeding; and replacement of ABThera wound VAC. ASSISTANTS: Dr. Reynaga, Meaghan Strickland PA. ANESTHESIA: General. HISTORY: This is a patient who previously this morning had a ruptured abdominal aortic aneurysm. At the end of the 1st procedure, he was extremely cold and coagulopathic, and decision was made to try to close the abdomen after packing it and see if we could correct his coagulopathy and correct his hypothermia in the intensive care unit. The patient tolerated this for about an hour, but then began to get unstable, had drained about a 1000 cc out of his ABThera wound VAC, and at that point in time also had bouts of hypotension. As we could not be entirely certain that there was not a discrete focus of bleeding and the fact that he drained about another 500 cc from the wound VAC while we were preparing to take him back to the operating room, it was felt that abdominal exploration was indicated with evaluation of the retroperitoneum and the graft to make sure that there was no discrete arterial bleeding site noted. Risks and benefits of this were discussed with the patient's family. His extremely tenuous status and the very grave nature of his overall physical status had been described to the family as well. PROCEDURE IN DETAIL: With the patient supine position, we prepped over the previously placed ABThera, and at that point in time, once prepping and draping had been performed, removed the ABThera wound VAC. We retracted the mesentery and placed the Omni-Tract retractor and thoroughly inspected each of the anastomosis. Both Dr. Reynaga and myself inspected each of the anastomosis and found no discrete bleeding point at any one of these sites. There was diffuse coagulopathic bleeding noted. There was blood welling up from where the aneurysm had ruptured into the pelvis and into the upper quadrants and into the retroperitoneum. This would slowly pool in drain. With this being the case, I discussed things with Anesthesia. I discussed the fact that at this point in time I did not feel we could return him to the intensive care unit that we would need to try to correct his coagulopathy here and as well try to see if we could raise his temperature. While doing this, we would place packs in the wound and control with manual pressure any oozing that was encountered. While we were doing this, we also inspected and tried with clips and cautery to perform a control of some of the bleeding. Unfortunately, initially he was so coagulopathic that any attempt to control the bleeding actually created more bleeding and therefore we had banded these attempts and continued to hold pressure. Anesthesia was able to get the appropriate blood products and once the patient had appropriate amounts of cryoprecipitate, fresh frozen plasma and platelets, we began to notice that the bleeding was subsiding. With that being the case, we continued to hold pressure and packed deep into the pelvis and into the retroperitoneum. There was 1 area on the mesentery that we had been retracting that we did find several small venous bleeding areas. These were clipped with clips. Two small serosal tears were also identified and these were treated with Vicryl Lembert sutures to reinforce the area of serosal tearing. At this point in time with relatively good hemostasis noted, we basically once again held for another 15 to 20 minutes worth of pressure. The hemostatic agents had been applied in and around the graft and the retroperitoneum and deep into the pelvis. Once hemostatic agent was placed there and there was what appeared to be good control of the patient's bleeding, we went ahead and proceeded to pack 3 lap sponges, 1 deep in the pelvis, a 2nd one in the more superficial layer of the pelvis, and the final one over the neck of the aneurysm repair. These were packed. We watched and did not see them become over a short period of time and feeling that we had relatively good control here, we then went ahead and proceeded to place the ABThera wound VAC. Once again, the ABThera wound VAC was placed to control the abdominal contents. At this point in time, the patient had much more significant distention of the bowel and it was a little more difficult to get the wound VAC on, but we were able to do so. With this being the case, we brought the patient to a point where he was much more hemodynamically stable. His clotting products had been replenished, and at this point, we felt that we could return him to the intensive care unit for ongoing close monitoring. Venkat Paniagua MD Vascular Surgery DENA:mika /[id number] Manuela Gutierrez MD 01/12/2018 6:46 AM Attested Attestation signed by Venkat Paniagua at 01/12/2018 4:56 PM I saw and evaluated the patient. Discussed with the resident and agree with resident's findings and plan as documented in the resident's note. HISTORY AND PHYSICAL EXAMINATION SERVICE DATE: 01/12/2018 SERVICE TIME: 1:21 AM PRIMARY CARE PHYSICIAN: Megan Hurst MD Subjective CHIEF COMPLAINT: Ruptured AAA HPI: This is a 77 year old male transferred in critical condition from [facility] with diagnosed ruptured AAA. Patient was life-flighted to [facility]. Intubated at outside facility. Per EMS, patient went into cardiac arrest immediately prior to arrival and CPR was initiated. 4 U prbc given prior to arrival. Patient was taken emergently to OR on arrival. CPR was continued en route. No past medical history on file. PAST SURGICAL HISTORY Procedure Laterality Date - L'SCOPE BENJI W/CHOLANGIOGRAPHY 05-28-09 - REPAIR UMBILICAL NATAN,5+Y/O,REDUC 05-28-09 FAMILY HISTORY Problem Relation Age of Onset - Coronary Artery Disease Father - None Mother Social History Substance Use Topics - Smoking status: Never Smoker - Smokeless tobacco: Not on file - Alcohol use No Prescriptions Prior to Admission: metoprolol succinate(TOPROL XL 50 MG 24 HR TAB) Take one(1) tablet daily. Disp: Rfl: 0 ASPIRIN 325 MG TAB Take one(1) tablet daily. Disp: Rfl: 0 triamterene/hydrochlorothiazid(DYAZIDE 37.5 MG-25 MG CAP) take one half (1/2) tablet daily Disp: Rfl: 0 LIPITOR 10 MG TAB Take one(1) tablet daily. Disp: Rfl: 0 ALLERGIES No Known Allergies COMPLETE REVIEW OF SYSTEMS: See HPI for pertinent ROS Objective PHYSICAL EXAM: Physical Exam Performed: GENERAL: Intubated, unresponsive SKIN: +pallor LUNGS: mechanically ventilated CARDIAC: nonpalpable pulses ABDOMEN: soft, distended PULSES: nonpalpable on admission There were no vitals taken for this visit. DATA: Diagnostic tests reviewed for today's visit: Most recent labs and imaging results. Assessment/Plan 77 yo M w/ ruptured AAA, cardiac arrest, hemorrhagic shock -MTP -Cardiopulmonary resuscitation -stat OR for ex lap/ repair of AAA -D/w Dr. Paniagua SIGNATURE: Manuela Gutierrez MD PATIENT NAME: Naveen Akins DATE: January 12, 2018 TIME: 1:21 AM PAGER/CONTACT #: Previous Version Tim Bruner RN, RN 01/12/2018 4:[address] Paniagua no chest x-ray is going to be taken due to patient retaining lap sponges as surgical packing. Tim Bruner RN, RN 01/12/2018 4:43 AM Signed Due to the emergent nature of the case an initial surgical count was not done. Tim Bruner RN, RN 01/12/2018 4:44 AM Signed Patient abdomen retaining 4 lap sponges as surgical packing. X-ray to be take at later time. Tim Bruner RN, RN 01/12/2018 5:02 AM Signed At approximately 0040 IA emergently entered into OR 10, CPR was being done during this time. CPR continued being performed as the case was starting, in total chest compressions were performed for approximately 15 minutes. Jack Lam MD 01/12/2018 5:28 AM Signed ANESTHESIOLOGY DAY OF SURGERY NOTE SERVICE DATE: 01/12/2018 SERVICE TIME: 12:26 AM : 1940 Procedure(s) (LRB): REPAIR ANEURYSM AORTIC ABDOMINAL (N/A) Surgeon(s): Venkat Phan (Edenilson) Kathryn There is no height or weight on file to calculate BMI. Most recent hematocrit and potassium results: Hematocrit 16.8 01/12/2018 Potassium 4.4 11/14/2017 ANES DOS/PREOP NOTE: Vitals: There were no vitals filed for this visit. ACTIVE PROBLEM LIST Gallstone Pancreatitis No past medical history on file. PAST SURGICAL HISTORY Procedure Laterality Date - L'SCOPE BENJI W/CHOLANGIOGRAPHY 05-28-09 - REPAIR UMBILICAL NATAN,5+Y/O,REDUC 05-28-09 FAMILY HISTORY Problem Relation Age of Onset - Coronary Artery Disease Father - None Mother Social History: Social History Substance Use Topics - Smoking status: Never Smoker - Smokeless tobacco: Not on file - Alcohol use No No current facility-administered medications on file prior to encounter. Current Outpatient Prescriptions on File Prior to Encounter: metoprolol succinate(TOPROL XL 50 MG 24 HR TAB) Take one(1) tablet daily. ASPIRIN 325 MG TAB Take one(1) tablet daily. triamterene/hydrochlorothiazid(DYAZIDE 37.5 MG-25 MG CAP) take one half (1/2) tablet daily LIPITOR 10 MG TAB Take one(1) tablet daily. Current Facility-Administered Medications: water for irrigation irrigation X (OR/PROCEDURE) PRN Venkat Paniagua 1,000 mL at 01/12/18 0223 NaCl 0.9% irrigation solution X (OR/PROCEDURE) PRN Venkat Paniagua 1,000 mL at 01/12/18 0429 heparin 1,000 unit/mL injection X (OR/PROCEDURE) PRN Venkat Paniagua 500 mL at 01/12/18 0230 insulin regular iv infusion 250 units in NaCl 0.9% 250 mL - AK CARD SURG NOMOGRAM 0-12 Units/hr INTRAVENOUS CONTINUOUS Jack Regula dextrose 40 % 15 g 15 g ORAL PRN Jack Regula Or glucagon 1 mg injection (GLUCAGEN) 1 mg INTRAMUSCULAR PRN Jack Regula Or dextrose 50% in water 25 mL syringe 12.5 g INTRAVENOUS PRN Jack Regula thrombin topical solution X (OR/PROCEDURE) PRN Venkat Paniagua 20,000 Units at 01/12/18 0359 NaCl 0.9% irrigation bag X (OR/PROCEDURE) PRN Venkat Paniagua 9,000 mL at 01/12/18 0504 heparin injection X (OR/PROCEDURE) PRN Venkat Paniagua 30,000 Units at 01/12/18 0506 Allergies: ALLERGIES No Known Allergies DOS EXAM: Adequate NPO Status: No, unknown Anesthetic Risks, Benefits, Alternatives, Personnel and Consent Discussed: No: Patient intubated and sedated. Patient agrees to proceed: Yes Previous Anesthesia: No history of adverse event Airway Assessment: Patient intubated or has existing tracheostomy. Symptoms of Sleep Apnea: None Dentition: Poor dentition Additional Physical Exam: Lungs: Patient health status unchanged since recent history and physical. See history and physical for exam findings. Cardiac: Patient health status unchanged since recent history and physical. See history and physical for exam findings. Additional Pertinent Findings: N/A Blood Products: Will accept Blood/Blood Products Anesthetic Plan: CVP A LINE MASSIVE TRANSFUSION Anesthetic Monitoring: Standard ASA Monitors and Invasive Hemodynamic Monitoring Arterial line, Introducer and CVP Pain Management Plan: Parenteral or Oral ASA Class: 5 Other Medical Problems: None Chronic Beta Lyric medication administered within 24 hours: N/A I have interviewed and examined the patient. I have reviewed the medical record and/or the pre-anesthesia evaluation, pertinent labs, and test results. Significant changes in the patient's condition since the History and Physical, not otherwise documented in primary service progress notes: No This contains updated information obtained within 48 hours of Surgery/Procedure. SIGNATURE: Jack Lam MD PATIENT NAME: Naveen Akins DATE: January 12, 2018 TIME: 5:26 AM CSN: [id number] Venkat Paniagua MD 01/15/2018 12:23 PM Signed BRIEF OPERATIVE / PROCEDURE NOTE LOG ID: [id number] Patient Name:Naveen Akins CSN: [id number] Surgery/Procedure Date: 01/12/2018 Incision/Procedure Start Time: 12:50 AM Incision Close/Procedure End Time: 5:06 AM Surgeon(s)/Proceduralist(s) and Industrial Laborer(s): Surgeon(s) and Role: * Venkat Paniagua - Primary * Emilie Peralta - Resident - Assisting Dyed Yarn Operator: Hailey Dixon SA Procedure(s): Procedure(s) (LRB): REPAIR ANEURYSM AORTIC ABDOMINAL (N/A) Anesthesia: General Findings: ruptured aaa Estimated Blood Loss: massive transfusion with unmeasurable EBL Intra-op fluids: 12 U PRBC, 13 plasma, 3 cryo, 2 platelets Cellsaver: 200-300cc (x5) UOP: 120 cc Specimens: contents of AAA Complications: Cardiac arrest, Massive transfusion, Hypothermia, Coagulopathy Pre-Op/Pre-Procedure Diagnosis: Ruptured abdominal aortic aneurysm with full cardiac arrest Post-Op/Post-Procedure Diagnosis: Ruptured abdominal aortic aneurysm with full cardiac arrest SIGNATURE: Emilie Peralta DO PATIENT NAME: Naveen Akins DATE: January 12, 2018 TIME: 6:04 AM PAGER/CONTACT #: [phone] Previous Version Ekaterina Mckeon MD 01/12/2018 6:40 AM Signed CRITICAL CARE PROGRESS NOTE SERVICE DATE: January 12, 2018 SERVICE TIME: 6:15 AM Admission Date: 01/12/2018 AGE: [id number] year old LOS: 0 days REASON FOR ICU ADMISSION: Ruptured AAA Acute blood loss anemia Cardiac arrest Anticipated acute hypoxic post-operative respiratory insufficiency Subjective Patient is a 77 year old man emergently transferred to [facility] from [place] for a ruptured abdominal aortic aneurysm. He had a systolic blood pressure in the 60's at [place] which fell to the 50's en route with eventual arrest before arrival at [facility]. He was receiving CPR at the time of his arrival when he went directly to the OR. He underwent an open repair of his ruptured abdominal aortic aneurysm with massive transfusion and volume transfusion (received 16 units PRBC's [getting the 17th now], 13 units FFP, 3 units of cryoprecipitate, and 1250 ml cell saver along with 10 L crystalloid). He is currently on norepinephrine drip at 5 mcg/minute. Patient is in bed intubated/on the ventilator without any current distress though he has not yet fully recovered from general anesthesia and paralytics. Objective VITAL SIGNS: Pulse 102 SpO2 90% 24 hour Intake AND Output: Intake/Output Summary (Last 24 hours) at 01/12/18614 Last data filed at 01/12/18530 Gross per 24 hour Intake 0 ml Output 500 ml Net -500 ml PHYSICAL EXAM: Right internal jugular introducer is well secured in place. RRR Clear to auscultation without wheezing bilaterally anteriorly. No bowel sounds, open abdominal wound with Wound Vac in place No pedal edema bilaterally. Dry, intact skin with fair turgor. VENTILATOR INFORMATION: WEANING DATA: Settings: Invasive Ventilator Mode: Pressure Regulated Volume Control (01/12/18530) %FIO2: 100 Set Ventilator Respiratory Rate (BPM): 14 Tidal Volume Set (mL): 500 PEEP/CPAP (cm H2O): 5 Patient Data: Inspiratory:Expiratory Ratio: 1:3.7 Peak Inspiratory Pressure (cm H2O): 23 Lines, Drains, and Airways Line Peripheral Admission to Hospital Left Antecubital 18 Gauge -- days Peripheral Admission to Hospital Right Hand 22 Gauge -- days Arterial Line 01/12/18 0238 Arterial Line Left Brachial less than 1 day Central Line Double Lumen 01/12/18 0239 Right Neck less than 1 day Drain Indwelling Urinary Catheter Admission to Hospital Sanchez 16 Fr -- days Drain/Tube 01/12/18 0100 Hemovac Midline Anterior Abdomen less than 1 day GI Feed/Drain 01/12/18 0100 less than 1 day INPATIENT MEDICATIONS: Current hospital medications: insulin regular iv infusion 250 units in NaCl 0.9% 250 mL - AK CARD SURG NOMOGRAM 0-12 Units/hr INTRAVENOUS CONTINUOUS dextrose 40 % 15 g 15 g ORAL PRN glucagon 1 mg injection (GLUCAGEN) 1 mg INTRAMUSCULAR PRN dextrose 50% in water 25 mL syringe 12.5 g INTRAVENOUS PRN DATA: BLOOD GAS: Recent Labs 01/12/18 0509 01/12/18 0410 01/12/18 0337 01/12/18 0311 01/12/18 0240 01/12/18 0211 01/12/18 0150 01/12/18 0143 RESPHCO3 26.5* 22.6 21.5* 19.3* 21.5* 13.8* 16.2* 15.7* PH 7.350 7.335* 7.363 7.337* 7.194* 7.242* 7.182* 7.294* PCO2 49.2* 43.3 38.7 37.0 57.1* 32.8* 44.3 33.1* B2CDKXDT 95.8 96.9 99.1* 99.8* 99.8* 99.7* 99.4* 99.4* CBC: Recent Labs 01/12/18 014 HB 5.2* HCT 16.8* COAG: Recent Labs 01/12/18412 APTT 82.2* INR 1.56 CHEM: Recent Labs 01/12/18 0509 01/12/18 0410 01/12/18 0337 01/12/18 0311 01/12/18 0240 01/12/18 0211 01/12/18 0143 ICAL 7.66* 4.44 4.65 4.12* 3.38* 2.60* 3.71* URINALYSIS: Recent Labs 01/12/18 0509 01/12/18 0410 01/12/18 0337 01/12/18 0311 01/12/18 0240 01/12/18 0211 01/12/18 0150 01/12/18 0143 PH 7.350 7.335* 7.363 7.337* 7.194* 7.242* 7.182* 7.294* Assessment/Plan ASSESSMENT: Ruptured AAA Acute blood loss anemia Cardiac arrest Anticipated acute hypoxic post-operative respiratory insufficiency PLAN: Received 16 units PRBC's (getting the 17th now), 13 units FFP, 3 units of cryoprecipitate, and 1250 ml cell saver along with 10 L crystalloid. On a norepinephrine drip at 5 mcg/minute currently. Check repeat labs. Replenish calcium, platelets, clotting factors, and PRBC's as needed since he is possibly in a consumptive coagulopathy. Continue full ventilator support without wean for now. Discussed with both Dr. Corie Peralta (General Surgery PGY5) and Dr. Lotus Paniagua (Vascular Surgery) outside of patient's room. Continue supportive care. Continue ICU monitoring. This patient has a high probability of sudden, clinically significant deterioration, which requires the highest level of physician preparedness to intervene urgently. I managed/supervised life or organ supporting interventions that required frequent physician assessment. I devoted my full attention to the direct care of this patient for the amount of time indicated below. Time I spent with family or surrogate(s) is included only if the patient was incapable of providing the necessary information or participating in medical decision making. Time devoted to teaching and to any procedures I billed separately is not included. PROGNOSIS: Guarded-poor Code status: Full Code. Discussed with Registered Nurses and General Surgery Residents. Critical Care Documentation: The patient has the following organ/system impairment(s): Acute blood loss and Circulatory shock, Anticipated acute hypoxic post-operative respiratory insufficiency Time spent providing critical care services: 40 minutes. SIGNATURE: Ekaterina Mckeon MD [facility] PAGER:[phone] DATE of SERVICE: January 12, 2018 TIME of SERVICE: 6:15 AM Dionicio Stevens MD 01/12/2018 7:46 AM Attested Attestation signed by Venkat Paniagua at 01/12/2018 4:34 PM I saw and evaluated the patient at 06 30 and concur with the above findings. He is still very critically ill status post ruptured abdominal aortic aneurysm. This patient came in with full cardiopulmonary resuscitation being performed from the helicopter ride in to the operating room and for about the first 15-20 minutes in the operating room. Once we had adequate resuscitation lines in and I was able to place an aortic balloon occluder the patient was able to be resuscitated to a supportable rhythm and blood pressure. Currently he is hypothermic and has a consumptive coagulopathy and we are trying to correct these and see if we can avoid returning to the operating room as most of the bleeding that we saw at the end of the case was diffuse oozing from the tissues that had been disrupted at the time the aneurysm ruptured. Vascular Surgery Progress Note SERVICE DATE: 01/12/2018 Vascular AND Thoracic Surgery Service Pager: For questions or concerns Mon-Tue 6a-5p please page [phone]. After 5pm and on Weekends and Holidays, please page [phone] if in ICU or [phone] if on RNF. Subjective SUBJECTIVE: Emergent Aortic repair overnight Diet: DIET NPO Objective OBJECTIVE: Vitals: No data recorded. Pulse 102 SpO2 90% O2 Therapy: Ventilator IANDO: Date 01/11/18699 - 01/12/18 0659(Not Admitted) 01/12/18 07 - 01/13/18 0659 Shift [id number] [id number] 9381-6923 24 Hour Total 6239-3862 3306-6072 1059-0500 24 Hour Total I N T A K E Shift Total O U T P U T Tubes 500 500 Drain/Tube Output (Drain/Tube 01/12/18 0100 Hemovac Midline Anterior Abdomen) 500 500 Shift Total 500 500 Weight (kg) MEDICATIONS Current Facility-Administered Medications: insulin regular iv infusion 250 units in NaCl 0.9% 250 mL - AK CARD SURG NOMOGRAM 0-12 Units/hr INTRAVENOUS CONTINUOUS dextrose 40 % 15 g 15 g ORAL PRN Or glucagon 1 mg injection (GLUCAGEN) 1 mg INTRAMUSCULAR PRN Or dextrose 50% in water 25 mL syringe 12.5 g INTRAVENOUS PRN Labs: Recent Labs 01/12/18 0509 01/12/18 0413 01/12/18 0410 01/12/18 0140 HB -- -- -- -- 5.2* HCT -- -- -- -- 16.8* INR -- 1.56 -- -- -- PH 7.350 -- 7.335* < > -- PCO2 49.2* -- 43.3 < > -- PO2 74.2* -- 86.0 < > -- BE 0.5 -- -3.1 < > -- < > = values in this interval not displayed. Exam: GENERAL: No distress NEURO: Intubated, sedated HEENT: normocephalic, atraumatic LUNGS: Unlabored breathing O2 Therapy: Ventilator CARDIAC: sinus tachy, hypotensive requiring LEVO ABDOMEN: Soft, non-tender, non-distended, Abthera VAC with sang output EXTREMITIES: MAK, No deformities, No edema, palpable pulses SKIN: Skin color, texture, turgor normal, No rashes or lesions ASSESSMENT AND PLAN: There are no active hospital problems to display for this patient. 77 year old male with Ruptured AAA s/p Emergent Repair - Vent mgmt per MICU - NPO/IVF - Massive transfusion protocol for Hemorrhagic Shock and Coagulopathy - Levo/Vaso - q6 labs - possible return to OR today pending resuscitation Assessment and plan discussed with attending: Dr. Paniagua SIGNATURE: Dionicio Stevens MD PATIENT NAME: Naveen Akins DATE: January 12, 2018 TIME: 6:22 AM Vascular AND Thoracic Surgery Service Pager: For questions or concerns Mon-Tue 6a-5p please page [phone]. After 5pm and on Weekends and Holidays, please page [phone] if in ICU or [phone] if on RNF. Dionicio Stevens MD 01/12/2018 8:02 AM Attested Attestation signed by Venkat Paniagua at 01/12/2018 4:35 PM I concur with the findings in the resident's note. As we have basically coagulopathic bleeding going on at this point in time I feel our only option is to take the patient to the operating room and make sure that there is nothing that is actively bleeding they can be controlled with either some form of suture or ligation. When we left the operating room basically we had coagulopathic bleeding however given the fact that the patient has put out 1500 cc of relatively bloody versus serosanguineous fluid I feel pushed to take him back open the abdomen and even if necessary try to control his coagulopathy with resuscitation in the operating room versus in the intensive care unit. This is discussed with the family and they concur with my findings and give consent for this procedure. Vascular Surgery Patient seen and examined for continued hypotension, hypothermia, coagulapathy, desaturations not improving despite massive transfusion protocol, rapid infuser/warmer, pressors, manual bagging. Abdomen S, mildly D, NT, VAC with bloody output in canister and around seal. ~1200 output post-op, extremities warm with palpable pulses. Dr. Paniagua discussed with family --> will return to OR now. Dionicio Stevens MD PGY-4 Pager: [phone] 01/12/2018, 8:02 AM Jose Jasso, RN, RN 01/12/2018 8:32 AM Signed 0700 starting of shift. 77 year old s/p emergent repair of ruptured AAA. Resuscitate manual bagging. Transfusion of PRBC and fluid. hemovac drained 1200cc or more. Dr. Paniagua in room residents in room. Back to OR by 0800. John Wagner, RN, RN 01/12/2018 9:42 AM Signed Family updated at this time on case status Moy Quinones MD 01/12/2018 10:28 AM Signed ANESTHESIOLOGY DAY OF SURGERY NOTE SERVICE DATE: 01/12/2018 SERVICE TIME: 10:25 AM : 1940 Procedure(s) (LRB): REPAIR RUPTURED ANEURYSM, ABDOMINAL AORTA WITH PATCH GRAFT (N/A) Surgeon(s): Venkat Greenberg (Res) Rodney Reynaga There is no height or weight on file to calculate BMI. Most recent hematocrit and potassium results: Hematocrit 35.7 01/12/2018 Potassium 4.4 11/14/2017 ANES DOS/PREOP NOTE: Vitals: 01/12/18 0531 Pulse: 102 SpO2: 90% ACTIVE PROBLEM LIST Gallstone Pancreatitis Ruptured Abdominal Aortic Aneurysm (Aaa) (Hcc) No past medical history on file. PAST SURGICAL HISTORY Procedure Laterality Date - L'SCOPE BENJI W/CHOLANGIOGRAPHY 05-28-09 - REPAIR UMBILICAL NATAN,5+Y/O,REDUC 05-28-09 FAMILY HISTORY Problem Relation Age of Onset - Coronary Artery Disease Father - None Mother Social History: Social History Substance Use Topics - Smoking status: Never Smoker - Smokeless tobacco: Not on file - Alcohol use No No current facility-administered medications on file prior to encounter. Current Outpatient Prescriptions on File Prior to Encounter: metoprolol succinate(TOPROL XL 50 MG 24 HR TAB) Take one(1) tablet daily. ASPIRIN 325 MG TAB Take one(1) tablet daily. triamterene/hydrochlorothiazid(DYAZIDE 37.5 MG-25 MG CAP) take one half (1/2) tablet daily LIPITOR 10 MG TAB Take one(1) tablet daily. Current Facility-Administered Medications: [MAR Hold due to Transfer] insulin regular iv infusion 250 units in NaCl 0.9% 250 mL - AK CARD SURG NOMOGRAM 0-12 Units/hr INTRAVENOUS CONTINUOUS Jack Regula [MAR Hold due to Transfer] dextrose 40 % 15 g 15 g ORAL PRN Jack Regula Or [MAR Hold due to Transfer] glucagon 1 mg injection (GLUCAGEN) 1 mg INTRAMUSCULAR PRN Jack Regula Or [MAR Hold due to Transfer] dextrose 50% in water 25 mL syringe 12.5 g INTRAVENOUS PRN Jack Regula [MAR Hold due to Transfer] Chlorhexidine Gluconate 0.12 % 15 mL (PERIDEX) 15 mL ORAL q 6 HR Emilie (Res) Cardella [MAR Hold due to Transfer] magnesium sulfate 1 g in D5W 100 mL 1 g INTRAVENOUS PRN Emilie (Res) Cardella [MAR Hold due to Transfer] magnesium sulfate in water 2 g in sterile water 50 ml 2 g INTRAVENOUS PRN Emilie (Res) Cardella [MAR Hold due to Transfer] ceFAZolin iv piggyback 1 g in D5W (iso-osmotic) 50 mL (ANCEF) 1 g INTRAVENOUS q 8 H Emilie (Res) Cardella [MAR Hold due to Transfer] fentaNYL 20 mcg/mL iv infusion in NaCl 0.9% 100 mL 25-150 mcg/hr INTRAVENOUS CONTINUOUS Emilie (Res) Cardella [MAR Hold due to Transfer] nitroglycerin 100 mg in D5W 250 mL 5-200 mcg/min INTRAVENOUS CONTINUOUS Emilie (Res) Cardella [MAR Hold due to Transfer] NaCl 0.9% iv infusion 150 mL/hr INTRAVENOUS CONTINUOUS Emilie (Res) Cardella [MAR Hold due to Transfer] pantoprazole 40 mg injection (PROTONIX) 40 mg INTRAVENOUS DAILY (6 AM) Emilie (Res) Cardella [MAR Hold due to Transfer] vasopressin 20 Units in D5W 100 mL (VASOSTRICT) 0.04 Units/min INTRAVENOUS CONTINUOUS Katie (Res) Fatchikova [MAR Hold due to Transfer] NORepinephrine 16 mg in D5W 250 mL (LEVOPHED) 0.6-30 mcg/min INTRAVENOUS CONTINUOUS Dionicio (Res) Stevens Allergies: ALLERGIES No Known Allergies DOS EXAM: Adequate NPO status: Yes Anesthetic risks, benefits, alternatives, personnel and consent discussed: Yes Patient agrees to proceed: Yes Previous Anesthesia: No history of adverse event. Airway Assessment: Patient intubated or has existing tracheostomy. Symptoms of Sleep Apnea: Male gender Dentition: intubated Additional Physical Exam: Lungs: Patient health status unchanged since recent history and physical. See history and physical for exam findings. Cardiac: Patient health status unchanged since recent history and physical. See history and physical for exam findings. Additional Pertinent Findings: N/A Blood Products: Not anticipated for this procedure. Anesthetic Plan: General, Standard ASA Monitors Pain Management Plan: Parenteral or Oral ASA Class: 5 Other Medical Problems: coagulopathy, uncontrolled bleeding Chronic Beta Lyric medication administered within 24 hours: N/A I have interviewed and examined the patient. I have reviewed the medical record and/or the pre-anesthesia evaluation, pertinent labs, and test results. Significant changes in the patient's condition since the History and Physical, not otherwise documented in primary service progress notes: Yes, patient on pressors, uncontrolled bleeding This contains updated information obtained within 48 hours of Surgery/Procedure. SIGNATURE: Moy Quinones MD PATIENT NAME: Naveen Akins DATE: January 12, 2018 TIME: 10:25 AM CSN: [id number] Dionicio Stevens MD 01/12/2018 11:29 AM Signed BRIEF OPERATIVE / PROCEDURE NOTE LOG ID: [id number] SURGERY/PROCEDURE DATE: 01/12/2018 INCISION/PROCEDURE START TIME: 8:34 AM INCISION CLOSE/PROCEDURE END TIME: 11:05 AM SURGEON(S)/PROCEDURALIST(S) AND VISUAL ARTS TEACHER(S): Surgeon(s) and Role: * Venkat Paniagua - Primary * Dionicio Stevens - Resident - Assisting * Araceli Reynaga - Assisting Physician Industrial Laborer: Hailey Norris (Pa) SURGERY/PROCEDURE(S): Second Look Laparotomy, Abdominal Washout, Re-Packing, Repair of Serosal Tears x2, Abthera VAC Placement ANESTHESIA: General FINDINGS: No obvious source of bleeding, Aortic Repair intact without anastomotic breakdown, generalized oozing from retroperitoneum and soft tissue that improved with continued resuscitation/holding pressure/cautery INTRA-OP FLUIDS: 4 of pRBCs 4 of FFP 3 of Plt 1 of Cryo 5L Crystaloid ESTIMATED BLOOD LOSS: unmeasurable amount, estimated near 6710-8710 SPECIMENS: None COMPLICATIONS: None PRE-OP/PRE-PROCEDURE DIAGNOSIS: Open Abdomen, s/o AAA Repair, Coagulopathy, Hemorrhagic Shock POST-OP/POST-PROCEDURE DIAGNOSIS: BLEEDING IN COAGULOPATHIC PATIENT, NO SPECIFIC BLEEDING SITE IDENTIFIED, DIFFUSE COAGULOPATHIC BLEEDING Same SIGNATURE: Dionicio Stevens MD PATIENT NAME: Naveen Akins DATE: January 12, 2018 TIME: 11:22 AM PAGER/CONTACT #: Chaplain Daphne, Envelope Stamping Machine Operator 01/12/2018 1:51 PM Signed SPIRITUALCARE Spiritual Care Visit- Brief Note Name: Naveen Akins Date: January 12, 2018 Notes: Met pt's fam in 3d floor [place] and,at their request, prayed with them. Will add pt to prayer list as well. Previous retail center receptionist asked me to check in with them. Let them know I'd be here all day and reminded them of 24/7 retail center receptionist availability. Will continue to follow as needed. Envelope Stamping Machine Operator Signature: Chaplain Daphne To contact the [facility] Care Department: Please call [phone] or Page the On-Call Envelope Stamping Machine Operator at pager [phone] Thank you for the opportunity to be of service. This is an electronically created document. IF PRINTED, PLEASE DO NOT REMOVE FROM THE CHART OR MODIFY PRINTED COPY. Elder Granda MD 01/12/2018 2:16 PM Addendum ICU - PROGRESS NOTE SERVICE DATE: 01/12/2018 SERVICE TIME: 1:48 PM Admission Date: 01/12/2018 AGE: [age] year old LOS: 0 days Subjective REASON FOR ICU ADMISSION: Hemorrhagic shock 2/2 ruptured AAA s/p repair, currently intubated and mechanically ventilated. Patient has arrived from his 2nd surgery. He is off pressors but per Dr Paniagua still bleeding with open abdomen. ROS not possible 2/2 patient condition. Objective VITAL SIGNS (last 24hrs min/max): Temp Av.1 ?C (87.9 ?F) Min: 29.9 ?C (85.8 ?F) Max: 31.6 ?C (88.9 ?F) Pulse Av Min: 81 Max: 123 Arterial BP 1 Min: 90/65 Max: 195/114 Cuff No Data Recorded Pain Score: 0/10 Vital signs reviewed. Pulse 83 Temp (Src) 88.9 (Axillary) Resp 0 SpO2 95% Temp (24hrs), Av.1 ?C (87.9 ?F), Min:29.9 ?C (85.8 ?F), Max:31.6 ?C (88.9 ?F) NET FLUID BALANCE Intake/Output Summary (Last 24 hours) at 01/12/18 1348 Last data filed at 01/12/18 1200 Gross per 24 hour Intake 1600 ml Output 2700 ml Net -1100 ml MEDICATIONS Current Facility-Administered Medications: insulin regular iv infusion 250 units in NaCl 0.9% 250 mL - AK CARD SURG NOMOGRAM 0-12 Units/hr INTRAVENOUS CONTINUOUS dextrose 40 % 15 g 15 g ORAL PRN Or glucagon 1 mg injection (GLUCAGEN) 1 mg INTRAMUSCULAR PRN Or dextrose 50% in water 25 mL syringe 12.5 g INTRAVENOUS PRN Chlorhexidine Gluconate 0.12 % 15 mL (PERIDEX) 15 mL ORAL q 6 HR magnesium sulfate 1 g in D5W 100 mL 1 g INTRAVENOUS PRN magnesium sulfate in water 2 g in sterile water 50 ml 2 g INTRAVENOUS PRN ceFAZolin iv piggyback 1 g in D5W (iso-osmotic) 50 mL (ANCEF) 1 g INTRAVENOUS q 8 H fentaNYL 20 mcg/mL iv infusion in NaCl 0.9% 100 mL 25-150 mcg/hr INTRAVENOUS CONTINUOUS nitroglycerin 100 mg in D5W 250 mL 5-200 mcg/min INTRAVENOUS CONTINUOUS NaCl 0.9% iv infusion 150 mL/hr INTRAVENOUS CONTINUOUS pantoprazole 40 mg injection (PROTONIX) 40 mg INTRAVENOUS DAILY (6 AM) NORepinephrine 16 mg in D5W 250 mL (LEVOPHED) 0.6-30 mcg/min INTRAVENOUS CONTINUOUS Lines, Drains, and Airways Line Peripheral Admission to Hospital Left Antecubital 18 Gauge -- days Peripheral Admission to Hospital Right Hand 22 Gauge -- days Arterial Line 01/12/18 0238 Arterial Line Left Brachial less than 1 day Central Line Double Lumen 01/12/18 0239 Right Neck less than 1 day Drain Drain/Tube 01/12/18 0100 Hemovac Midline Anterior Abdomen less than 1 day GI Feed/Drain 01/12/18 0100 less than 1 day Indwelling Urinary Catheter 01/12/18 1108 Assessment Temperature Monitoring 16 Fr less than 1 day Airway Airway Endotracheal Tube 01/12/18 1138 less than 1 day PHYSICAL EXAM PERFORMED: Constitutional: Lying in bed HEENT: IJ in neck, intubated, pupils fixed Cardiovascular: Regular rhythm Respiratory: breath sounds equal %FIO2 Min: 100 Max: 100 Abdomen: open with wound vac in place Extremities: Edema- No, very cold to touch, could not appreciate pulses Neurologic: Sedated Respiratory/Nursing Documentation: O2 Therapy: Ventilator (01/12/18 1245) Invasive Ventilator Mode: Pressure Regulated Volume Control (01/12/18 112) Set Ventilator Respiratory Rate (BPM): 14 (01/12/18 112) Total Respiratory Rate (BPM): 14 (01/12/18 112) Tidal Volume Set (mL): 500 (01/12/18 112) Exhaled Tidal Volume (mL): 512 (01/12/181128) Minute Volume (L): 6.9 (01/12/181128) Peak Inspiratory Pressure (cm H2O): 27 (01/12/181128) PEEP/CPAP (cm H2O): 5 (01/12/181128) HEMODYNAMIC DATA: Reviewed NUTRITION: Enteral Feeds: No NPO DATA: Diagnostic tests reviewed for today's visit, films/specimens were personally reviewed by me: Most recent labs and imaging results. LABS: Recent Labs 01/12/18 1140 WBC 4.68 RBC 4.55* HB 13.0* HCT 38.4* MCV 84.4 PLT 79* GLUC 122* BUN 17 CREAT 1.18* NA 156* K 2.9* CHLOR 121* CO2 26 CA 8.1* PTSEC 13.3* APTT 32.9 INR 1.29 MG 1.4* ABG: Recent Labs 01/12/18 1140 01/12/18 1005 01/12/18 0853 PH 7.305* 7.335* 7.262* PO2 82.9* 198.2* 167.5* PCO2 47.5* 42.0 40.6 Assessment/Plan IMPRESSION: Critical Care Documentation: The patient has the following organ/system impairment(s): Complex life-threatening medical problem(s) and Respiratory failure (Acute) 77 year old male with PMH of AAA who was transferred to [facility] in shock 2/2 ruptured AAA c/b cardiac arrest s/p CPR and ROSC and s/p abdominal washout, repacking and repair of serosal tears x2. Currently off pressors. Abdomen open with wound vac drainig serosanguinous products. Received multiple units of pRBC, platelets, cryo, FFP as part of massive transfusion protocol. Intubated and mechanically ventilated Non anion gap metabolic acidosis 2/2 above Acute blood loss anemia Hypokalemia Hypernatremia and Hypercholeremia PLAN: Continue mechanical ventilation, underlying hemodynamics barrier to SAT SBT. Increase minute ventilation to help with acidosis. F/u blood gases Monitor vitals, I-Os, replace IVF and would favor blood if hemodynamics drop. Favor LR for maintenance Check CBC, coags frequently Replace K, check electrolytes Rewarm Vascular recs ICU PPx Guarded prognosis This patient has a high probability of sudden, clinically significant deterioration, which requires the highest level of physician preparedness to intervene urgently. I managed/supervised life or organ supporting interventions that required frequent physician assessment. I devoted my full attention to the direct care of this patient for the amount of time indicated below. Time I spent with family or surrogate(s) is included only if the patient was incapable of providing the necessary information or participating in medical decision making. Time devoted to teaching is not included. Discussed with staff/patient/family Time spent providing critical care services: 35 minutes excluding procedures. SIGNATURE: Elder Granda MD PATIENT NAME: Naveen Akins DATE: January 12, 2018 TIME: 1:48 PM Previous Version Matt Teresa MD 01/12/2018 6:53 PM Signed POST ANESTHESIA EVALUATION NOTE SERVICE DATE: 01/12/2018 SERVICE TIME: 6:52 PM : 1940 Vitals: 01/12/18 1500 01/12/18 1700 01/12/18 1730 01/12/18 1800 Temp: (!) 35.5 ?C (95.9 ?F) 36 ?C (96.8 ?F) (!) 35.6 ?C (96.1 ?F) 36.6 ?C (97.9 ?F) 01/12/18 1730 01/12/18 1745 01/12/18 1800 01/12/18 1844 Arterial BP 1: 113/63 117/65 119/66 99/55 01/12/18 1730 01/12/18 1745 01/12/18 1800 01/12/18 1844 Pulse: 95 95 100 97 01/12/18 1730 01/12/18 1745 01/12/18 1800 01/12/18 1844 Resp: 9 16 20 20 01/12/18 1730 01/12/18 1745 01/12/18 1800 01/12/18 1844 SpO2: 96% 97% 98% 96% Validated Vital Signs: Yes POST ANES STATUS: PACU/ICU Patient Condition: Guarded Neurological Status: On intravenous sedation. Pulmonary Status: On invasive mechanical ventilation. Airway Control: Intubated on mechanical ventilation. Cardiovascular Status: Guarded Pain: Adequately controlled Postoperative Nausea/Vomiting: No significant post operative nausea or vomiting Postoperative Hydration Status: Adequate. Anesthetic Complications: None Recommendation: Continue current plan of care Other Remarks: SIGNATURE: Matt Teresa MD PATIENT NAME: Naveen Akins DATE: January 12, 2018 TIME: 6:52 PM PAGER/CONTACT #: [phone] Chente Whittaker MD 01/12/2018 10:39 PM Signed MICU - PROGRESS NOTE SERVICE DATE: 01/12/2018 SERVICE TIME: 10:14 PM Admission Date: 01/12/2018 Subjective Called to patients bedside given concerns for possible seizure activity as per night nursing staff. Patient on arrival intubated, sedated on mechanical ventilation w/ RASS -4. Patient with periodic shoulder/arm twitching w/ what appears like paradoxical breathing on vent. No significant vent dyssynchrony and pressors stable. Family at bedside and answered all questions. No other significant events.. PMH: PAST MEDICAL HISTORY Diagnosis Date - DIC (disseminated intravascular coagulation) (HCC) 01/12/2018 PSH: PAST SURGICAL HISTORY Procedure Laterality Date - LAP CHOLECYSTECT/CHOLANGIOGRAPHY 05-28-09 - REPAIR UMBILICAL NATAN,5+Y/O,REDUC 05-28-09 FH: FAMILY HISTORY Problem Relation Age of Onset - Coronary Artery Disease Father - None Mother SOCIAL HISTORY: Social History Substance Use Topics - Smoking status: Never Smoker - Smokeless tobacco: Not on file - Alcohol use No OUTPATIENT MEDICATIONS: Prior to Admission Medications: Prescriptions Prior to Admission: metoprolol succinate(TOPROL XL 50 MG 24 HR TAB) Take one(1) tablet daily. Disp: Rfl: 0 01/11/2018 ASPIRIN 325 MG TAB Take one(1) tablet daily. Disp: Rfl: 0 01/11/2018 triamterene/hydrochlorothiazid(DYAZIDE 37.5 MG-25 MG CAP) take one half (1/2) tablet daily Disp: Rfl: 0 01/11/2018 LIPITOR 10 MG TAB Take one(1) tablet daily. Disp: Rfl: 0 01/11/2018 INPATIENT MEDICATIONS: Current hospital medications: insulin regular iv infusion 250 units in NaCl 0.9% 250 mL - AK CARD SURG NOMOGRAM 0-12 Units/hr INTRAVENOUS CONTINUOUS dextrose 40 % 15 g 15 g ORAL PRN glucagon 1 mg injection (GLUCAGEN) 1 mg INTRAMUSCULAR PRN dextrose 50% in water 25 mL syringe 12.5 g INTRAVENOUS PRN magnesium sulfate 1 g in D5W 100 mL 1 g INTRAVENOUS PRN magnesium sulfate in water 2 g in sterile water 50 ml 2 g INTRAVENOUS PRN fentaNYL 20 mcg/mL iv infusion in NaCl 0.9% 100 mL 25-150 mcg/hr INTRAVENOUS CONTINUOUS nitroglycerin 100 mg in D5W 250 mL 5-200 mcg/min INTRAVENOUS CONTINUOUS pantoprazole 40 mg injection (PROTONIX) 40 mg INTRAVENOUS DAILY (6 AM) NORepinephrine 16 mg in D5W 250 mL (LEVOPHED) 0.6-30 mcg/min INTRAVENOUS CONTINUOUS lactated ringers infusion 150 mL/hr INTRAVENOUS CONTINUOUS Chlorhexidine Gluconate 0.12 % 15 mL (PERIDEX) 15 mL ORAL q 12 H lactated ringers 1,000 mL iv bolus 1,000 mL INTRAVENOUS ONCE lactated ringers 1,000 mL iv bolus 1,000 mL INTRAVENOUS ONCE ALLERGIES: ALLERGIES No Known Allergies Objective VITAL SIGNS (last 24hrs min/max): Pulse 103 Temp 37.6 ?C (99.7 ?F) Resp 26 SpO2 99% BP 99/64 (10mcg/min levo) Respiratory/Nursing Documentation: O2 Therapy: Ventilator (01/12/182010) Invasive Ventilator Mode: Pressure Regulated Volume Control (01/12/182010) Set Ventilator Respiratory Rate (BPM): 18 (01/12/182010) Total Respiratory Rate (BPM): 18 (01/12/182010) Tidal Volume Set (mL): 500 (01/12/182010) Exhaled Tidal Volume (mL): 624 (01/12/182010) Minute Volume (L): 9.6 (01/12/182010) Peak Inspiratory Pressure (cm H2O): 29 (01/12/182010) PEEP/CPAP (cm H2O): 5 (01/12/182010) PHYSICAL EXAM PERFORMED: General: intubated, sedated on MV Resp: diminished, coarse mechanical BS b/l, + ETT in place, paradoxical breathing on vent perioidcally CV: tachycardic,RR, no MGR noted Abd: post-operative abdomen w/ wound vac in place, tense/distended Ext: no pedal edema noted, warm to touch, no cyanosis Neuro: sedated,non-responsive, rare myoclonic twitches in upper extremities NET FLUID BALANCE Intake/Output Summary (Last 24 hours) at 01/12/182213 Last data filed at 01/12/182022 Gross per 24 hour Intake 8400 ml Output 5650 ml Net 2750 ml DATA: I personally reviewed all imaging and laboratory data below. LABS: Hemoglobin (g/dL) Date Value 11/14/2017 15.0 HGB (g/dL) Date Value 01/12/2018 12.0 Hematocrit (%) Date Value 01/12/2018 35.5 WBC (thou/cmm) Date Value 01/12/2018 3.88 Platelet Count (thou/cmm) Date Value 01/12/2018 81 Glucose (mg/dL) Date Value 01/12/2018 99 Potassium (mEq/L) Date Value 01/12/2018 3.4 Sodium (mEq/L) Date Value 01/12/2018 156 Chloride (mEq/L) Date Value 01/12/2018 122 CO2 (mEq/L) Date Value 01/12/2018 23 Creatinine (mg/dL) Date Value 01/12/2018 1.38 BUN (mg/dL) Date Value 01/12/2018 19 Anion Gap (no units) Date Value 01/12/2018 14 Calcium (mg/dL) Date Value 01/12/2018 7.5 Lactate 6.3 IMAGING: CXR 01/12: IMPRESSION: Lines and tubes as described ? Small layering left pleural effusion ? Left lung base/retrocardiac opacity may reflect atelectasis or infection ? Interstitial prominence, consider interstitial edema, atypical pneumonia or chronic interstitial change Assessment PROBLEMS: - Ruptured AAA POD #0 - Cardiac Arrest/?PEA - Persistent Circulatory Shock - Acute Hypoxic Respiratory Failure on mechanical ventilation - Acute Consumptive Coagulopathy - Encephalopathy - Multifactorial - ? Clonus - TERENCE - Suspected ATN given recent clinical hx - Lactic Acidosis - Hypernatremia PLANS FOR TODAY: - Recommend continuation of mechanical ventilation, will adjust PEEP in efforts to wean FiO2 - Continue to trend ABG/VBG and adjust vent as needed - Wean pressors as tolerated, etiology of persistent shock unclear. ? Post-operative vasoplegia vs. Sepsis vs cardiogenic - Continue w/ IVF resuscitation, check PCT, BCx/Sputum Cx. Low threshold for empiric abx if fevers overnight. - Obtain TTE - Continue to monitor lactate - Monitor CBC/coags - STAT EEG, overall unimpressive clinical exam. ? Myoclonus. - Recommend formal head imaging when patient more stable - Adjust IVF to 1/2 NS if persistent hypernatremia - Continue supportive care - SCDs/PPI - Discontinue insulin gtt/nitro gtt as patient hasn't required for sometime Critical Care Documentation: The patient has the following organ/system impairment(s): Acute blood loss, Acute kidney injury, Circulatory shock, Coagulopathy, Complex life-threatening medical problem(s), Encephalopathy and Respiratory failure (Acute, with Hypoxemia) This patient has a high probability of sudden, clinically significant deterioration, which requires the highest level of physician preparedness to intervene urgently. I managed/supervised life or organ supporting interventions that required frequent physician assessment. I devoted my full attention to the direct care of this patient for the amount of time indicated below. Time I spent with family or surrogate(s) is included only if the patient was incapable of providing the necessary information or participating in medical decision making. Time devoted to teaching is not included. Critical Care Time devoted to this patient is 40 minutes SIGNATURE: Chente Whittaker MD PATIENT NAME: Naveen Akins DATE: January 12, 2018 TIME: 10:14 PM Dionicio Stevens MD 01/13/2018 8:46 AM Attested Attestation signed by Venkat Paniagua at 01/15/2018 11:46 AM I saw and evaluated the patient. Discussed with the resident and agree with resident's findings and plan as documented in the resident's note. Agree with nephrology consult. It would appear to me that the patient is still in need of volume resuscitation especially with the amount of serosanguineous fluid that is being drained through the abdomen therapy wound VAC. I have discussed this with the intensive care staff as well as with our nurse practitioner we are going to try to improve his volume status today as we resuscitate him. He does appear to have some papillary function at this point in time which was absent yesterday. He also appears to withdraw from painful stimuli. Vascular Surgery Progress Note SERVICE DATE: 01/13/2018 Vascular AND Thoracic Surgery Service Pager: For questions or concerns Mon-Fri 6a-5p please page [phone]. After 5pm and on Weekends and Holidays, please page [phone] if in ICU or [phone] if on RNF. Subjective SUBJECTIVE: Febrile overnight Tm 38.3*C, Levo restarted, low UOP ~10cc/hr despite fluids, High VAC output Diet: DIET NPO Objective OBJECTIVE: Vitals: Temp (24hrs), Av.8 ?C (94.6 ?F), Min:29.9 ?C (85.8 ?F), Max:38.3 ?C (100.9 ?F) Pulse 99 Temp 36.6 ?C (97.9 ?F) (Axillary) Resp 18 Ht 172.7 cm (5' 8) Wt 80.1 kg (176 lb 9.4 oz) SpO2 95% BMI 26.85 kg/m? O2 Therapy: Ventilator IANDO: Date 01/12/18699 - 01/13/1865801/13/18699 - 01/14/1859 Shift 2975-4404 1484-0163 7958-4503 24 Hour Total 9279-2502 9181-2765 6338-4727 24 Hour Total I N T A K E IV 1600 5100 6700 IVPB 1600 50 1650 Potassium IVPB 300 300 LR 3000 3000 NORepinephrine Volume 200 200 ALBUMIN (mL) 1500 1500 MAGNESIUM SULFATE 50 50 Blood Products 2827 705 1526 PRBC Intake (mL) 900 900 Platelet mL 600 200 800 Shift Total 3100 5300 8400 O U T P U T Urine 200 200 Tube Output ( Indwelling Urinary Catheter 01/12/18 1108 Assessment Temperature Monitoring 16 Fr) 200 200 Drains 2200 1500 3700 Negative Pressure: Output (mL) (Negative Pressure Wound Therapy 01/12/18 0749 Abdomen) 2200 1500 3700 Tubes 1750 1000 2750 Drain/Tube Output (Drain/Tube 01/12/18 0100 Hemovac Midline Anterior Abdomen) 1000 1000 2000 Drain/Tube Output (Drain/Tube 01/12/18 Fecal Management System) 300 300 Output (GI Feed/Drain 01/12/18 0100) 450 450 # of BMs Number of BMs 1 x 1 x Shift Total 2200 3450 1000 6650 Weight (kg) 80.1 80.1 80.1 80.1 80.1 80.1 MEDICATIONS Current Facility-Administered Medications: propofol infusion (DIPRIVAN) 5-60 mcg/kg/min INTRAVENOUS CONTINUOUS ampicillin-sulbactam 3 g in NaCl 0.9% 100 mL MB+ (UNASYN) 3 g INTRAVENOUS q 6 H dextrose 40 % 15 g 15 g ORAL PRN Or glucagon 1 mg injection (GLUCAGEN) 1 mg INTRAMUSCULAR PRN Or dextrose 50% in water 25 mL syringe 12.5 g INTRAVENOUS PRN magnesium sulfate 1 g in D5W 100 mL 1 g INTRAVENOUS PRN magnesium sulfate in water 2 g in sterile water 50 ml 2 g INTRAVENOUS PRN fentaNYL 20 mcg/mL iv infusion in NaCl 0.9% 100 mL 25-150 mcg/hr INTRAVENOUS CONTINUOUS pantoprazole 40 mg injection (PROTONIX) 40 mg INTRAVENOUS DAILY (6 AM) NORepinephrine 16 mg in D5W 250 mL (LEVOPHED) 0.6-30 mcg/min INTRAVENOUS CONTINUOUS lactated ringers infusion 150 mL/hr INTRAVENOUS CONTINUOUS Chlorhexidine Gluconate 0.12 % 15 mL (PERIDEX) 15 mL ORAL q 12 H perflutren lipid microspheres 1.1 mg/mL 1.3 mL injection (DEFINITY) 1.3 mL INTRAVENOUS PRN(NO DISPENSE) Labs: Recent Labs 01/13/18 0455 01/12/18 2255 01/12/18 1140 NA 152* 153* < > 156* K 5.3* 4.6 < > 2.9* CHLOR 118* 119* < > 121* CO2 23 25 < > 26 BUN 24* 22* < > 17 CREAT 2.15* 1.89* < > 1.18* GLUC 91 78 < > 122* ANION 16 14 < > 12 CA 6.7* 7.6* < > 8.1* MG -- -- -- 1.4* P 4.8 -- -- -- WBC 9.99* 4.62 < > 4.68 HB 11.4* 10.9* < > 13.0* HCT 33.0* 31.9* < > 38.4* PLT 68* 76* < > 79* LACT 6.4* 6.8* < > -- INR 1.43 1.41 -- 1.29 PH 7.365 7.382 < > 7.305* PCO2 40.7 39.3 < > 47.5* PO2 84.6* 176.7* < > 82.9* BE -2.4 -1.9 < > -3.4 < > = values in this interval not displayed. Exam: GENERAL: No distress NEURO: CN II-XII grossly intact, not following commands HEENT: normocephalic, atraumatic LUNGS: Unlabored breathing O2 Therapy: Ventilator CARDIAC: sinus tachy, BP stable on Levo @ 25 ABDOMEN: Soft, D, aTTP, voluntary guarding, VAC with SS output EXTREMITIES: MAK, No deformities, +edema, palpable pulses SKIN: Skin color, texture, turgor normal, No rashes or lesions ASSESSMENT AND PLAN: Active Hospital Problems Diagnosis Date Noted - Ruptured abdominal aortic aneurysm (AAA) ([facility]) 01/12/2018 - DIC (disseminated intravascular coagulation) ([facility]) 01/12/2018 - Hemorrhagic shock ([facility]) 01/12/2018 - Acute respiratory failure ([facility]) 01/12/2018 - Cardiac arrest ([facility]) 01/12/2018 - Hypernatremia 01/12/2018 - Hypokalemia 01/12/2018 - Hypomagnesemia 01/12/2018 - Hypophosphatemia 01/12/2018 - Hyperchloremia 01/12/2018 77 year old male with Ruptured AAA s/p Emergent Repair, takeback washout, repair of serosal tears x2, on 01/12, hemorrhagic shock, acute resp failure with pulm edema, TERENCE ? - Vent mgmt per MICU - NPO/IVF - Wean Levo as able - Acute blood loss and dilutional anemia and thrombocytopenia- may transfuse today if unable to wean pressors - q6 labs - Cont Abthera VAC - TERENCE --> check FENa today, consider Nephro consult - CXR with bilateral infiltrates c/w pulm edema - Unasyn empirically, BCx and RCx pending - OR possibly tomorrow ? Assessment and plan discussed with attending: Dr. Paniagua SIGNATURE: Dionicio Stevens MD PATIENT NAME: Naveen Akins DATE: January 13, 2018 TIME: 6:20 AM Vascular AND Thoracic Surgery Service Pager: For questions or concerns Mon-Tue 6a-5p please page [phone]. After 5pm and on Weekends and Holidays, please page [phone] if in ICU or [phone] if on RNF. Elder Granda MD 01/14/2018 7:44 AM Addendum ICU - PROGRESS NOTE SERVICE DATE: 01/13/2018 SERVICE TIME: 11:13 AM Admission Date: 01/12/2018 AGE: [id number] year old LOS: 1 days Subjective REASON FOR ICU ADMISSION: AAA rupture s/p repair ROS not possible 2/2 mental status. Overnight developed episodes of jerky movements, his BP dropped and requires vasopressors. Significant bloody output 3.7L in wound vac. No urine output. Objective VITAL SIGNS (last 24hrs min/max): Temp Av.2 ?C (95.4 ?F) Min: 29.9 ?C (85.8 ?F) Max: 38.3 ?C (100.9 ?F) Pulse Av.6 Min: 77 Max: 121 Arterial BP 1 Min: 81/45 Max: 195/114 Cuff No Data Recorded Pain Score: 4/10 Vital signs reviewed. Pulse 107 Temp (Src) 97.2 (Axillary) Resp 18 Ht 5' 8 (1.73m) Wt 176 lb 9.4 oz (80.1kg) SpO2 95% BMI 26.86 kg/(m2). Temp (24hrs), Av.2 ?C (95.4 ?F), Min:29.9 ?C (85.8 ?F), Max:38.3 ?C (100.9 ?F) NET FLUID BALANCE Intake/Output Summary (Last 24 hours) at 01/13/18 1113 Last data filed at 01/13/18 1000 Gross per 24 hour Intake 9707 ml Output 7685 ml Net 2022 ml MEDICATIONS Current Facility-Administered Medications: propofol infusion (DIPRIVAN) 5-60 mcg/kg/min INTRAVENOUS CONTINUOUS ampicillin-sulbactam 3 g in NaCl 0.9% 100 mL MB+ (UNASYN) 3 g INTRAVENOUS q 6 H NaCl 0.45% iv infusion 150 mL/hr INTRAVENOUS CONTINUOUS dextrose 40 % 15 g 15 g ORAL PRN Or glucagon 1 mg injection (GLUCAGEN) 1 mg INTRAMUSCULAR PRN Or dextrose 50% in water 25 mL syringe 12.5 g INTRAVENOUS PRN magnesium sulfate 1 g in D5W 100 mL 1 g INTRAVENOUS PRN magnesium sulfate in water 2 g in sterile water 50 ml 2 g INTRAVENOUS PRN fentaNYL 20 mcg/mL iv infusion in NaCl 0.9% 100 mL 25-150 mcg/hr INTRAVENOUS CONTINUOUS pantoprazole 40 mg injection (PROTONIX) 40 mg INTRAVENOUS DAILY (6 AM) NORepinephrine 16 mg in D5W 250 mL (LEVOPHED) 0.6-30 mcg/min INTRAVENOUS CONTINUOUS Chlorhexidine Gluconate 0.12 % 15 mL (PERIDEX) 15 mL ORAL q 12 H perflutren lipid microspheres 1.1 mg/mL 1.3 mL injection (DEFINITY) 1.3 mL INTRAVENOUS PRN(NO DISPENSE) Lines, Drains, and Airways Line Peripheral Admission to Hospital Left Antecubital 18 Gauge -- days Arterial Line 01/12/18 0238 Arterial Line Left Brachial 1 day Central Line Double Lumen 01/12/18 0239 Right Neck 1 day Drain Drain/Tube 01/12/18 0100 Hemovac Midline Anterior Abdomen 1 day Drain/Tube 01/12/18 Fecal Management System 1 day GI Feed/Drain 01/12/18 0100 1 day Indwelling Urinary Catheter 01/12/18 1108 Assessment Temperature Monitoring 16 Fr 1 day Airway Airway Endotracheal Tube 01/12/18 1138 less than 1 day PHYSICAL EXAM PERFORMED: Constitutional: Lying in bed, appears in pain HEENT: IJ and ET tube noted Cardiovascular: Regular rhythm Respiratory: b/l breath sounds equal %FIO2 Min: 60 Max: 100 Abdomen: Wound Vac in place, abdomen open Extremities: Edema- No, Extremities cold Neurologic: Sedated Respiratory/Nursing Documentation: O2 Therapy: Ventilator (01/13/18 1000) Invasive Ventilator Mode: Pressure Regulated Volume Control (01/13/18908) Set Ventilator Respiratory Rate (BPM): 18 (01/13/18908) Total Respiratory Rate (BPM): 22 (01/13/18908) Tidal Volume Set (mL): 500 (01/13/18908) Exhaled Tidal Volume (mL): 521 (01/13/18908) Minute Volume (L): 11.3 (01/13/18908) Peak Inspiratory Pressure (cm H2O): 17 (01/13/18908) PEEP/CPAP (cm H2O): 11 (01/13/18908) HEMODYNAMIC DATA: Reviewed NUTRITION: Enteral Feeds: No NPO DATA: Diagnostic tests reviewed for today's visit, films/specimens were personally reviewed by me: Most recent labs and imaging results. LABS: Recent Labs 01/13/18 1015 01/13/18 0615 01/13/18 0455 WBC 11.26* -- 9.99* RBC 3.92* -- 3.99* HB 11.0* -- 11.4* HCT 32.6* -- 33.0* MCV 83.2 -- 82.7* PLT 64* -- 68* GLUC 99 -- 91 BUN 25* -- 24* CREAT 2.49* -- 2.15* NA 150* -- 152* K 5.1 -- 5.3* CHLOR 116* -- 118* CO2 23 -- 23 CA 6.9* -- 6.7* PTSEC -- -- 14.7* APTT -- -- 36.5* INR -- -- 1.43 MG -- 1.3* -- ABG: Recent Labs 01/13/18 1015 01/13/18 0455 01/12/18 2255 PH 7.378 7.365 7.382 PO2 77.2* 84.6* 176.7* PCO2 37.7 40.7 39.3 Assessment/Plan IMPRESSION: Critical Care Documentation: The patient has the following organ/system impairment(s): Acute blood loss, Circulatory shock, Coagulopathy and Respiratory failure (Acute, with Hypoxemia) 77 year old male with PMH of AAA who was transferred to [facility] in shock 2/2 ruptured AAA c/b cardiac arrest s/p CPR and ROSC and s/p abdominal washout, repacking and repair of serosal tears x2. Hemorrhagic shock, currently back on pressors. 3.7L output in wound vac. Received multiple units of pRBC, platelets, cryo, FFP as part of massive transfusion protocol on 01/12. IV fluids maintenance and bolus ongoing. Acute hypoxic respiratory failure 2/2 pulmonary edema in the setting of massive transfusion. ?Left sided infiltrate, on Unasyn. Sputum pending. Intubated and mechanically ventilated Non anion gap metabolic acidosis 2/2 above Acute blood loss anemia ATN HAGMA, likely in the setting of multiorgan failure PLAN: Continue lung protective mechanical ventilation, not a candidate for SAT and SBT due to multiorgan failure. Wean FiO2 as able, target SpO2 > 92. Continue IV fluid bolus, blood products as necessary Monitor CBC, coags, hemodynamics, I-Os F/u ECHO F/u Bedside EEG F/u Cx and continue ABx Increase fentanyl for adequate pain control Nephro recs, suspect CRRT Wound Vac and AAA recs per vascular Rest per ICU team This patient has a high probability of sudden, clinically significant deterioration, which requires the highest level of physician preparedness to intervene urgently. I managed/supervised life or organ supporting interventions that required frequent physician assessment. I devoted my full attention to the direct care of this patient for the amount of time indicated below. Time I spent with family or surrogate(s) is included only if the patient was incapable of providing the necessary information or participating in medical decision making. Time devoted to teaching is not included. Discussed with staff/patient/family Time spent providing critical care services: 35 minutes excluding procedures. SIGNATURE: Elder Granda MD PATIENT NAME: Naveen Akins DATE: January 13, 2018 TIME: 11:13 AM Previous Version Rosanna Talbert MD 01/13/2018 11:38 AM Signed [facility] [address] [place] [address] Consult Note Patient's Name: Naveen Akins 11:16 AM 01/13/2018 Reason for Consult: TERENCE ATTENDING/ADMITTING PHYSICIAN:Venkat Paniagua History of Present Ilness: Naveen Akins is a 77 year old male with past history of CAD (remote PCI/stent placement) and HTN who is admitted with ruptured AAA yesterday. Pt was life flight from [place] ED where ruptured AAA was diagnosed. Pt did suffer massive blood loss because of ruptured aorta. He went directly to OR yesterday for repair of AAA rupture. Asked to see pt because of TERENCE. SCr has increased from 1.18 mg/dL on 01/12/18 at 11:40 to 2.49 mg/dL at 10:15 today. Pt is anuric and is still requiring 35 mcg/min of NE gtt. Pt is currently intubated and sedated and cannot provide history. The chart was extensively reviewed. Also discussed with Dr. Granda, Wai Barcenas, [employer]ENT SALES REPRESENTATIVE, and Bedside RN (Jose). PAST MEDICAL HISTORY Diagnosis Date - DIC (disseminated intravascular coagulation) (HCC) 01/12/2018 PAST SURGICAL HISTORY Procedure Laterality Date - LAP CHOLECYSTECT/CHOLANGIOGRAPHY 05-28-09 - REPAIR UMBILICAL NATAN,5+Y/O,REDUC 05-28-09 FAMILY HISTORY Problem Relation Age of Onset - Coronary Artery Disease Father - None Mother reports that he has never smoked. He does not have any smokeless tobacco history on file. He reports that he does not drink alcohol or use drugs. Allergies: Patient has no known allergies. Current Medications: Current Facility-Administered Medications: propofol infusion (DIPRIVAN) 5-60 mcg/kg/min INTRAVENOUS CONTINUOUS ampicillin-sulbactam 3 g in NaCl 0.9% 100 mL MB+ (UNASYN) 3 g INTRAVENOUS q 6 H NaCl 0.45% iv infusion 150 mL/hr INTRAVENOUS CONTINUOUS dextrose 40 % 15 g 15 g ORAL PRN Or glucagon 1 mg injection (GLUCAGEN) 1 mg INTRAMUSCULAR PRN Or dextrose 50% in water 25 mL syringe 12.5 g INTRAVENOUS PRN magnesium sulfate 1 g in D5W 100 mL 1 g INTRAVENOUS PRN magnesium sulfate in water 2 g in sterile water 50 ml 2 g INTRAVENOUS PRN fentaNYL 20 mcg/mL iv infusion in NaCl 0.9% 100 mL 25-150 mcg/hr INTRAVENOUS CONTINUOUS pantoprazole 40 mg injection (PROTONIX) 40 mg INTRAVENOUS DAILY (6 AM) NORepinephrine 16 mg in D5W 250 mL (LEVOPHED) 0.6-30 mcg/min INTRAVENOUS CONTINUOUS Chlorhexidine Gluconate 0.12 % 15 mL (PERIDEX) 15 mL ORAL q 12 H perflutren lipid microspheres 1.1 mg/mL 1.3 mL injection (DEFINITY) 1.3 mL INTRAVENOUS PRN(NO DISPENSE) Review of Systems: 10 ROS negative other than stated above Physical exam: Pulse 107 Temp 36.2 ?C (97.2 ?F) (Axillary) Resp 18 Ht 172.7 cm (5' 8) Wt 80.1 kg (176 lb 9.4 oz) SpO2 95% BMI 26.85 kg/m? General: Sedated. On mechanical ventilator. HEENT: Atraumatic, normocephalic, Intubated. Eyes: Pupils equal, round and reactive to light. Neck: No JVD, no thyromegaly, no lymphadenopathy. Chest: Coarse BS bilaterally. Cardiac: S1 S2 RR, no murmurs, gallops or rubs, JVP not raised. Abdomen: Wound vac in place. Abdomen is soft. Neuro: Sedated, No FND. SKIN: No rashes, good skin turgor. Extremities: No edema. Labs: Recent Labs 01/13/18 1015 01/13/18 0455 01/12/18 2255 WBC 11.26* 9.99* 4.62 HCT 32.6* 33.0* 31.9* MCV 83.2 82.7* 82.6* PLT 64* 68* 76* Recent Labs 01/13/18 1015 01/13/18 0615 01/13/18 0455 01/12/18 2255 01/12/18 1140 NA 150* -- 152* 153* < > 156* K 5.1 -- 5.3* 4.6 < > 2.9* CO2 23 -- 23 25 < > 26 MG -- 1.3* -- -- -- 1.4* BUN 25* -- 24* 22* < > 17 CREAT 2.49* -- 2.15* 1.89* < > 1.18* CA 6.9* -- 6.7* 7.6* < > 8.1* < > = values in this interval not displayed. Input / Output: 24 HR: Intake/Output Summary (Last 24 hours) at 01/13/18 1116 Last data filed at 01/13/18 1000 Gross per 24 hour Intake 9707 ml Output 7685 ml Net 2022 ml Assessment and Plan 1. Acute kidney injury on chronic kidney disease stage 3. Baseline SCr is 1.36 mg/dL on 11/14/17. CKD is likely due to nephrosclerosis related to PAD. TERENCE is 2/2 ischemic ATN from hemorrhagic shock. Pt is anuric with increased pressor requirement. D/w resident advisor, I agree that the pt will benefit from CRRT as renal function will likely get worse today with ongoing need for pressor. Will place dialysis line and start CRRT. Consent obtained from pt's . 2. Shock. Likely hemorrhagic shock-massive blood loss from ruptured AAA. Currently requiring pressor. Ongoing volume resuscitation. I will not remove fluid with CRRT. In fact, he can be made positive (I/O) by continuing fluid. 3. Hypernatremia. Dehydration from volume loss. Doubt other causes. Still requiring isotonic fluid because of shock. Na should stabilize with CRRT. 4. Hyperkalemia. Mild. 2/2 TERENCE. Will stabilize with CRRT. 5. Ruptured AAA. s/p repair 01/12/18. Management as per vascular surgery. 6. Acute hypoxic respiratory failure. Ventilator dependent. Vent management as per . Thank you for allowing me to participate in care of Naveen Akins. Please do not hesitate to contact me at [phone] with any concerns. Rosanna Talbert MD, MD (Shen Lorenzo) Rosanna Talbert MD 01/13/2018 12:27 PM Addendum BEDSIDE PROCEDURE NOTE DIALYSIS CATHETER Date/Start Time: 01/13/2018 11:39 AM Performed by: SHEN LORENZO Authorized by: SHEN LORENZO Consent/Burt Protocol Written Consent Obtained: Yes Sign In Communication: Completed Time Out completed: Team confirms correct patient, procedure, side/site, position (if applicable) and completion AND review of fire risk assessment/protocols (if appropriate) Affirmation of Time Out: Yes Sign Out Discussion: Yes Pre-procedure Details: Personnel directly involved with the procedure wore the appropriate PPE. PPE Used: Sterile gloves, sterile gown, mask, cap and goggles The area was prepped with chlorhexidine (Chloroprep) and allowed to dry. A sterile full body drape was applied following the usual aseptic technique. Usual aseptic technique was not followed due to clinical factors necessitating an emergent procedure [facility] Central Line Insertion Checklist Utilized: yes Medications: Local anesthesia Local Anesthesia (see MAR): Lidocaine 1% Procedure Details: Indication: Hemodialysis Patient Position: Flat Site: Left internal jugular vein New Stick: The vessel was cannulated under direct ultrasound visualization with a single lumen catheter. Line Transduced: No A small skin incision was made and the tract was sequentially dilated with semi-rigid tissue dilators. A 20cm dual lumen, 14 Fr, non-tunneled catheter was advanced over the guidewire and left in situ while the guidewire was removed. Assessment: Blood return through all ports A sterile, transparent, occlusive dressing was placed over the site. Post-procedure X-ray: Pending All catheters, needles, and wires were accounted for and intact Number of attempts: 1 Successful Placement: Yes Post-procedure Details: Patient tolerated the procedure well with no immediate complications Estimated Blood Loss: Scant Specimens Sent: None 01/13/19 (12:30): CXR reviewed. No PTX. Tip of line in SVC. OK to use line. SIGNATURE: Rosanna Talbert MD PATIENT NAME: Naveen Akins DATE: January 13, 2018 TIME: 11:38 AM PAGER/CONTACT #: Previous Version Wai Barcenas APRN.PNEUMATIC TUBE OPERATOR 01/13/2018 1:15 PM Signed CARDIOVASCULAR SURGERY POSTOP PROGRESS NOTE SERVICE DATE: 01/13/2018 SERVICE TIME: 12:08 PM Subjective S/P SURGERY: Procedure(s) (LRB): EXPLORATION, CONTROL OF BLEEDING, APPLICATION ABTHERA WOUND VAC (N/A) DATE OF SURGERY: 01/12/2018 POSTOP DAY # 1 LOS: 1 INTERVAL EVENTS / PERTINENT ROS: Levo requirements are the same. Has put out 1500mL of fluid into abdominal wound vac. Has received 4L total of IVF boluses since 3 am. Objective Admission Weight: 80.1 kg (176 lb 9.4 oz) Pulse 107 Temp 36.2 ?C (97.2 ?F) (Axillary) Resp 18 Ht 172.7 cm (5' 8) Wt 80.1 kg (176 lb 9.4 oz) SpO2 95% BMI 26.85 kg/m? Body surface area is 1.96 meters squared. Min/Max/Average Temperature AND Blood Pressure: Temp (24hrs), Av.9 ?C (96.7 ?F), Min:31.6 ?C (88.9 ?F), Max:38.3 ?C (100.9 ?F) Intake/Output Summary (Last 24 hours) at 01/13/18 1208 Last data filed at 01/13/18 1000 Gross per 24 hour Intake 9707 ml Output 7185 ml Net 2522 ml TELEMETRY: sinus tachycardia PHYSICAL EXAM: General Appearance: Intubated, sedated Skin: warm and dry Lungs: decreased breath sounds and respiratory effort: normal Heart: regular rhythm and S1, S2 normal Abdomen: soft, tender and open abdomen with wound vac attached with serosanguinous output. Genitourinary: Sanchez intact, urine color is clear yellow Extremities: edema: 2+ Lines, Drains, and Airways Line Peripheral Admission to Hospital Left Antecubital 18 Gauge -- days Arterial Line 01/12/18 0238 Arterial Line Left Brachial 1 day Central Line Double Lumen 01/12/18 0239 Right Neck 1 day Dialysis / Apheresis Double Lumen 01/13/18 1136 Left Neck less than 1 day Drain Drain/Tube 01/12/18 0100 Hemovac Midline Anterior Abdomen 1 day Drain/Tube 01/12/18 Fecal Management System 1 day GI Feed/Drain 01/12/18 0100 1 day Indwelling Urinary Catheter 01/12/18 1108 Assessment Temperature Monitoring 16 Fr 1 day Airway Airway Endotracheal Tube 01/12/18 1138 1 day DATA: Diagnostic tests reviewed for today's visit: Recent Labs 01/13/18 1015 01/13/18 0615 01/13/18 0455 01/12/18 2255 01/12/18 1830 01/12/18 1140 01/12/18 1005 RBC 3.92* -- 3.99* 3.86* 4.28* -- 4.55* < > -- WBC 11.26* -- 9.99* 4.62 3.88* -- 4.68 < > -- HB 11.0* -- 11.4* 10.9* 12.0* -- 13.0* -- -- HCT 32.6* -- 33.0* 31.9* 35.5* -- 38.4* -- -- PLT 64* -- 68* 76* 81* -- 79* < > -- INR 1.59 -- 1.43 1.41 -- -- 1.29 -- 1.45 APTT 40.9* -- 36.5* 34.9* -- -- 32.9 -- 40.2* NA 150* -- 152* 153* -- < > 156* -- -- K 5.1 -- 5.3* 4.6 -- < > 2.9* -- -- CHLOR 116* -- 118* 119* -- < > 121* -- -- CO2 23 -- 23 25 -- < > 26 -- -- BUN 25* -- 24* 22* -- < > 17 -- -- CREAT 2.49* -- 2.15* 1.89* -- < > 1.18* -- -- GLUC 99 -- 91 78 -- < > 122* -- -- ICAL -- -- 4.37* -- 4.43 -- -- -- 4.69 CA 6.9* -- 6.7* 7.6* -- < > 8.1* -- -- MG -- 1.3* -- -- -- -- 1.4* -- -- P -- -- 4.8 -- -- -- -- -- -- ANION 16 -- 16 14 -- < > 12 -- -- < > = values in this interval not displayed. Recent Labs 01/13/18 1015 01/13/18 0455 01/12/18 2255 PH 7.378 7.365 7.382 PCO2 37.7 40.7 39.3 PO2 77.2* 84.6* 176.7* BE -3.0 -2.4 -1.9 Assessment/Plan 77 yo male with Ruptured AAA s/p Emergent Repair, takeback washout, repair of serosal tears x2 POD#1, hemorrhagic shock, acute resp failure with pulm edema, TERENCE -Fluid resuscitation ongoing. Keep I=O -Levo requirements are the same. Wean to keep MAP >65 -Monitor CBC -TERENCE discussed with Dr. Lorenzo; CRRT to start today. HD line in place. -Hypomagnesemia being replaced -Echo pending. -EEG in progress. -Plan of care discussed with Dr. Paniagua and Dr. Granda SIGNATURE: Wai Barcenas APRN.IRENE PATIENT NAME: Naveen Akins DATE: January 13, 2018 TIME: 12:08 PM PAGER/CONTACT #: [phone] [phone] Lorrie Bo, RN, RN 01/13/2018 5:00 PM Signed CARE MANAGEMENT: ASSESSMENT AND DISCHARGE PLAN SERVICE DATE: 01/13/2018 SERVICE TIME: 4:46 PM PRIMARY CARE PHYSICIAN: Megan Hurst MD ADMISSION STATUS: Inpatient MEDICAL: Patient/Continuing Education Director Stated Goals: pt intubated, family hopeful for recovery Health Insurance: N/A . Health Issues Impacting Discharge Plan: None Last Admission Date: none Is this Within the Past 30 days? No Advance Directive: None on file Health Literacy: 1. How often do you need to have someone help you when you read instructions, pamphlets, or other written material from your doctor or pharmacy? Never - 1 2. How confident are you filling out medical forms by yourself? Extremely - 1 If Patient scores > 3 on either question, the following interventions were put into place: Patient did not score > 3 FUNCTIONAL AND COGNITIVE/BEHAVIORAL PRIOR TO ADMISSION: Baseline Mental Status: Alert AND Oriented, Person, Place , Time and Situation Functional Status: Independent Does Patient Currently Receive Any Community Services or Home Care? None Equipment Prior to Admission: recent knee replacement, walking ind and gradudated from therapy Has the Patient Been in a Prison Facility in the Past 30 days? 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 Yes Patient's transition needs and plan for meeting these needs: extubation Does the patient have an acute stroke diagnosis, or has the patient had a stroke during this admission? No Medication Adherence: I am convinced of the importance of my prescription medication: Agree completely - 0 I worry that my prescription medication will do more harm than good to me Disagree mostly - 0 I feel financially burdened by my [id number] expenses for my prescription medication: Disagree mostly -0 Patient is categorized as low risk < 2 Are you interested in bedside delivery of your medications? No Food Concerns: In the Last Month, Have You had Trouble Getting Food? No trouble getting food During the Last Month, Have You Worried Whether Your Food Would Run Out Before You Had Enough Money to Buy More? No Is the Patient Psychosocially Complex? No ASSESSMENT AND PLAN: Medical Needs: None Psychosocial Needs: None FREEDOM OF CHOICE EXPLAINED: N/A POTENTIAL TRANSITION PLANS To Be Determined [facility] [place] .Ruptured AAA s/p Emergent Repair, takeback washout, repair of serosal tears x2 POD#1, hemorrhagic shock, acute resp failure with pulm edema, TERENCE Pt intubated, sedated. Emotional support to dght and grandchildren at bedside. He has four children. Will follow for transitional needs an SIGNATURE: Lorrie Bo RN PATIENT NAME: Naveen Akins DATE: January 13, 2018 TIME: 4:45 PM PAGER/CONTACT #: [phone] Mark Woods MD 01/14/2018 8:54 AM Signed GENERAL SURGERY CONSULT ==== GENERAL SURGERY STAFF: I have personally seen and evaluated this patient and participated in the coleman components of this encounter. I discussed the management of this case with the surgery resident team and independently confirmed the findings and plan of care as documented either attached or in their separate note from today. Any corrections or additional notes are made as needed. Active Hospital Problems Diagnosis Date Noted - Ruptured abdominal aortic aneurysm (AAA) ([facility]) 01/12/2018 - Encephalopathy 01/13/2018 - DIC (disseminated intravascular coagulation) ([facility]) 01/12/2018 - Hemorrhagic shock ([facility]) 01/12/2018 - Acute respiratory failure ([facility]) 01/12/2018 - Cardiac arrest ([facility]) 01/12/2018 - Hypernatremia 01/12/2018 - Hypokalemia 01/12/2018 - Hypomagnesemia 01/12/2018 - Hypophosphatemia 01/12/2018 - Hyperchloremia 01/12/2018 - AAA (abdominal aortic aneurysm, ruptured) ([facility]) 01/12/2018 Overview Note: Added automatically from request for surgery [id number] Assessment and Plan: Seen in OR today. No sign of ischemic colon Mark Woods MD, FACS Section of Trauma, Surgery Critical Care, and Acute Care Surgery Pager: [phone] Office: [phone] January 14, 2018 ==== SERVICE DATE: 01/13/2018 SERVICE TIME: 8:02 PM REASON FOR CONSULT: Intra-op eval of bowel REQUESTING PHYSICIAN: Dr. Paniagua PRIMARY CARE PHYSICIAN: Megan Hurst MD Subjective HISTORY OF PRESENT ILLNESS: Mr. Akins is a 77 year old male admitted with Ruptured AAA s/p Emergent Open Repair and take back, washout, repair of serosal tears. Patient is currently in CVICU intubated on Levophed and CVVHD. Abthera in place. PAST MEDICAL HISTORY Diagnosis Date - DIC (disseminated intravascular coagulation) (HCC) 01/12/2018 PAST SURGICAL HISTORY Procedure Laterality Date - LAP CHOLECYSTECT/CHOLANGIOGRAPHY 05-28-09 - REPAIR UMBILICAL NATAN,5+Y/O,REDUC 05-28-09 FAMILY HISTORY Problem Relation Age of Onset - Coronary Artery Disease Father - None Mother Social History Substance Use Topics - Smoking status: Never Smoker - Smokeless tobacco: Not on file - Alcohol use No Prescriptions Prior to Admission: metoprolol succinate(TOPROL XL 50 MG 24 HR TAB) Take one(1) tablet daily. Disp: Rfl: 0 01/11/2018 ASPIRIN 325 MG TAB Take one(1) tablet daily. Disp: Rfl: 0 01/11/2018 triamterene/hydrochlorothiazid(DYAZIDE 37.5 MG-25 MG CAP) take one half (1/2) tablet daily Disp: Rfl: 0 01/11/2018 LIPITOR 10 MG TAB Take one(1) tablet daily. Disp: Rfl: 0 01/11/2018 Current hospital medications: propofol infusion (DIPRIVAN) 5-60 mcg/kg/min INTRAVENOUS CONTINUOUS ampicillin-sulbactam 3 g in NaCl 0.9% 100 mL MB+ (UNASYN) 3 g INTRAVENOUS q 6 H NaCl 0.9% 1,000 mL iv bolus 1,000 mL INTRAVENOUS PRN DIALYSIS prismaSOL BGK 4 K / 2.5 mEq Ca/Liter 5,000 mL 5,000 mL HEMODIALYSIS continuous (no dispense) prismaSOL BGK 4 K / 2.5 mEq Ca/Liter 5,000 mL 5,000 mL HEMODIALYSIS continuous (no dispense) prismaSOL BGK 4 K / 2.5 mEq Ca/Liter 5,000 mL 5,000 mL HEMODIALYSIS continuous (no dispense) NaCl 0.45% iv infusion 200 mL/hr INTRAVENOUS CONTINUOUS lactated ringers 1,000 mL iv bolus 1,000 mL INTRAVENOUS ONCE dextrose 40 % 15 g 15 g ORAL PRN glucagon 1 mg injection (GLUCAGEN) 1 mg INTRAMUSCULAR PRN dextrose 50% in water 25 mL syringe 12.5 g INTRAVENOUS PRN magnesium sulfate 1 g in D5W 100 mL 1 g INTRAVENOUS PRN magnesium sulfate in water 2 g in sterile water 50 ml 2 g INTRAVENOUS PRN fentaNYL 20 mcg/mL iv infusion in NaCl 0.9% 100 mL 25-150 mcg/hr INTRAVENOUS CONTINUOUS pantoprazole 40 mg injection (PROTONIX) 40 mg INTRAVENOUS DAILY (6 AM) NORepinephrine 16 mg in D5W 250 mL (LEVOPHED) 0.6-30 mcg/min INTRAVENOUS CONTINUOUS Chlorhexidine Gluconate 0.12 % 15 mL (PERIDEX) 15 mL ORAL q 12 H perflutren lipid microspheres 1.1 mg/mL 1.3 mL injection (DEFINITY) 1.3 mL INTRAVENOUS PRN(NO DISPENSE) ALLERGIES No Known Allergies COMPLETE REVIEW OF SYSTEMS: Unable to Obtain ROS Objective PHYSICAL EXAM: GENERAL: No Distress SKIN: Skin color, texture, turgor normal. No rashes or lesions. LUNGS: No resp distress on Vent CARDIAC: mild tachycardia, hypotensive requiring Levo ABDOMEN: S, D, TTP, Abthera intact with SS output, +voluntary guarding EXTREMITIES: +edema, palpable distal pulses, MAK but not following commands NEURO: Sedated, not following commands, Localizes pain The remainder of the physical exam is noncontributory. Pulse 109 Temp 36.2 ?C (97.2 ?F) (Axillary) Resp 17 Ht 172.7 cm (5' 8) Wt 80.1 kg (176 lb 9.4 oz) SpO2 94% BMI 26.85 kg/m? Body mass index is 26.85 kg/m?. DATA: Diagnostic tests reviewed for today's visit: CBC, Coags, BMP, Mg, Phos Recent Labs 01/13/18 1600 01/13/18 1015 01/13/18 0615 01/13/18 0455 01/12/18 1140 WBC 10.62* 11.26* -- 9.99* < > 4.68 HB 13.0* 11.0* -- 11.4* < > 13.0* HCT 38.3* 32.6* -- 33.0* < > 38.4* PLT 56* 64* -- 68* < > 79* INR 1.55 1.59 -- 1.43 < > 1.29 APTT 37.6* 40.9* -- 36.5* < > 32.9 NA 149* 150* -- 152* < > 156* K 4.9 5.1 -- 5.3* < > 2.9* CHLOR 117* 116* -- 118* < > 121* CO2 23 23 -- 23 < > 26 BUN 25* 25* -- 24* < > 17 CREAT 2.54* 2.49* -- 2.15* < > 1.18* GLUC 91 99 -- 91 < > 122* CA 6.8* 6.9* -- 6.7* < > 8.1* MG -- -- 1.3* -- -- 1.4* P -- -- -- 4.8 -- -- < > = values in this interval not displayed. Liver Function, Amylase, AND Lipase Recent Labs 01/13/18159901/13/18 1015 01/13/18 0455 LACT 4.0* 5.5* 6.4* Cardiac Enzymes ABGs Recent Labs 01/13/18159901/13/185 01/13/18 0455 PH 7.370 7.378 7.365 PCO2 39.1 37.7 40.7 PO2 65.2* 77.2* 84.6* BE -2.8 -3.0 -2.4 IMAGING: XR CHEST 1V FRONTAL Final Result XR CHEST 1V FRONTAL Final Result XR CHEST 1V FRONTAL Final Result XR CHEST 1V FRONTAL (Results Pending) Impression/Recommendations with Ruptured AAA s/p Emergent Repair, takeback washout, repair of serosal tears x2, on 01/12, hemorrhagic shock, acute resp failure with pulm edema, TERENCE ? - Vent mgmt per MICU - NPO/IVF - Wean Levo as able - Acute blood loss and dilutional anemia and thrombocytopenia- transfused platelet this evening - q6 labs - Cont Abthera VAC - TERENCE --> CVVHD per Nephro - Unasyn empirically, BCx and RCx pending - OR tomorrow morning --> will be available for possible bowel resection or component separation as needed D/W Dr. Woods SIGNATURE: Dionicio Stevens MD PATIENT NAME: Naveen Akins DATE: January 13, 2018 TIME: 5:23 PM PAGER/CONTACT #: Emergency General Surgery Service Pager: For questions or concerns Mon-Tue 6a-5p please page [phone]. After 5pm and on Weekends and Holidays, please page [phone] if in ICU or [phone] if on RNF. Previous Version Tim Santacruz, RN, RN 01/13/2018 7:01 PM Signed CRRT tx initiated as ordered. Pt tolerating tx well thus far. See flow record for tx data. Chente Whittaker MD 01/13/2018 9:50 PM Signed MICU - PROGRESS NOTE SERVICE DATE: 01/13/2018 SERVICE TIME: 9:35 PM Admission Date: 01/12/2018 Subjective Called to patients bedside due to worsening tachycardia. On review of EKG and tele, appears to be NSR. Patient appears to remain critically ill, sedated, intubated on mechanical ventilation. Remains on pressors, slight increase in requirements. Started on CVVH this evening. Reviewed documentation. . PMH: PAST MEDICAL HISTORY Diagnosis Date - DIC (disseminated intravascular coagulation) (HCC) 01/12/2018 PSH: PAST SURGICAL HISTORY Procedure Laterality Date - LAP CHOLECYSTECT/CHOLANGIOGRAPHY 05-28-09 - REPAIR UMBILICAL NATAN,5+Y/O,REDUC 05-28-09 FH: FAMILY HISTORY Problem Relation Age of Onset - Coronary Artery Disease Father - None Mother SOCIAL HISTORY: Social History Substance Use Topics - Smoking status: Never Smoker - Smokeless tobacco: Not on file - Alcohol use No OUTPATIENT MEDICATIONS: Prior to Admission Medications: Prescriptions Prior to Admission: metoprolol succinate(TOPROL XL 50 MG 24 HR TAB) Take one(1) tablet daily. Disp: Rfl: 0 01/11/2018 ASPIRIN 325 MG TAB Take one(1) tablet daily. Disp: Rfl: 0 01/11/2018 triamterene/hydrochlorothiazid(DYAZIDE 37.5 MG-25 MG CAP) take one half (1/2) tablet daily Disp: Rfl: 0 01/11/2018 LIPITOR 10 MG TAB Take one(1) tablet daily. Disp: Rfl: 0 01/11/2018 INPATIENT MEDICATIONS: Current hospital medications: propofol infusion (DIPRIVAN) 5-60 mcg/kg/min INTRAVENOUS CONTINUOUS ampicillin-sulbactam 3 g in NaCl 0.9% 100 mL MB+ (UNASYN) 3 g INTRAVENOUS q 6 H NaCl 0.9% 1,000 mL iv bolus 1,000 mL INTRAVENOUS PRN DIALYSIS prismaSOL BGK 4 K / 2.5 mEq Ca/Liter 5,000 mL 5,000 mL HEMODIALYSIS continuous (no dispense) prismaSOL BGK 4 K / 2.5 mEq Ca/Liter 5,000 mL 5,000 mL HEMODIALYSIS continuous (no dispense) prismaSOL BGK 4 K / 2.5 mEq Ca/Liter 5,000 mL 5,000 mL HEMODIALYSIS continuous (no dispense) NaCl 0.45% iv infusion 200 mL/hr INTRAVENOUS CONTINUOUS dextrose 40 % 15 g 15 g ORAL PRN glucagon 1 mg injection (GLUCAGEN) 1 mg INTRAMUSCULAR PRN dextrose 50% in water 25 mL syringe 12.5 g INTRAVENOUS PRN magnesium sulfate 1 g in D5W 100 mL 1 g INTRAVENOUS PRN magnesium sulfate in water 2 g in sterile water 50 ml 2 g INTRAVENOUS PRN fentaNYL 20 mcg/mL iv infusion in NaCl 0.9% 100 mL 25-150 mcg/hr INTRAVENOUS CONTINUOUS pantoprazole 40 mg injection (PROTONIX) 40 mg INTRAVENOUS DAILY (6 AM) NORepinephrine 16 mg in D5W 250 mL (LEVOPHED) 0.6-30 mcg/min INTRAVENOUS CONTINUOUS Chlorhexidine Gluconate 0.12 % 15 mL (PERIDEX) 15 mL ORAL q 12 H perflutren lipid microspheres 1.1 mg/mL 1.3 mL injection (DEFINITY) 1.3 mL INTRAVENOUS PRN(NO DISPENSE) ALLERGIES: ALLERGIES No Known Allergies Objective VITAL SIGNS (last 24hrs min/max): BP 112/58 Pulse 113 Temp 36.2 ?C (97.2 ?F) (Axillary) Resp 18 Ht 172.7 cm (5' 8) Wt 80.1 kg (176 lb 9.4 oz) SpO2 96% BMI 26.85 kg/m? I/O + 5.8L. (1.8L / 24 hrs) Respiratory/Nursing Documentation: O2 Therapy: Ventilator (01/13/182011) Invasive Ventilator Mode: Pressure Regulated Volume Control (01/13/182011) Set Ventilator Respiratory Rate (BPM): 18 (01/13/182011) Total Respiratory Rate (BPM): 18 (01/13/182011) Tidal Volume Set (mL): 500 (01/13/182011) Exhaled Tidal Volume (mL): 505 (01/13/182011) Minute Volume (L): 9 (01/13/182011) Peak Inspiratory Pressure (cm H2O): 24 (01/13/182011) PEEP/CPAP (cm H2O): 8 (01/13/182011) PHYSICAL EXAM PERFORMED: General: intubated, sedated on MV Resp: diminished, coarse mechanical BS b/l, + ETT in place CV: tachycardic,RR, no MGR noted Abd: post-operative abdomen w/ wound vac in place, tense/distended Ext: warm to touch, no cyanosis Neuro: sedated,non-responsive to physical and verbal stimuli NET FLUID BALANCE Intake/Output Summary (Last 24 hours) at 01/13/18 5775 Last data filed at 01/13/18 1948 Gross per 24 hour Intake 9034 ml Output 5931 ml Net 3103 ml DATA: I personally reviewed all imaging and laboratory data below. LABS: Hemoglobin (g/dL) Date Value 11/14/2017 15.0 HGB (g/dL) Date Value 01/13/2018 13.0 Hematocrit (%) Date Value 01/13/2018 38.3 WBC (thou/cmm) Date Value 01/13/2018 10.62 Platelet Count (thou/cmm) Date Value 01/13/2018 56 Glucose (mg/dL) Date Value 01/13/2018 91 Potassium (mEq/L) Date Value 01/13/2018 4.9 Sodium (mEq/L) Date Value 01/13/2018 149 Chloride (mEq/L) Date Value 01/13/2018 117 CO2 (mEq/L) Date Value 01/13/2018 23 Creatinine (mg/dL) Date Value 01/13/2018 2.54 BUN (mg/dL) Date Value 01/13/2018 25 Anion Gap (no units) Date Value 01/13/2018 14 Calcium (mg/dL) Date Value 01/13/2018 6.8 IMAGING: CXR 01/12: IMPRESSION: Lines and tubes as described ? Small layering left pleural effusion ? Left lung base/retrocardiac opacity may reflect atelectasis or infection ? Interstitial prominence, consider interstitial edema, atypical pneumonia or chronic interstitial change CXR 01/13: IMPRESSION: ? Recent placement of central venous catheter without apparent complication. Stable ?appearance of heart and lungs. TTE 01/13: LVEF 55% L pleural effusion No gross valvular abnormalities Assessment - Ruptured AAA POD #1 - Recent Cardiac Arrest - Persistent Circulatory Shock - Acute Hypoxic Respiratory Failure on mechanical ventilation - Acute Consumptive/Dilutional Coagulopathy - Encephalopathy - Multifactorial - TERENCE on CKD - Suspected ATN - On CVVH - Lactic Acidosis - Slowly improving - Hypernatremia - Sinus Tachycardia - Thrombocytopenia ? PLANS FOR TODAY: - Recommend continuation of mechanical ventilation, adjust as needed - Wean pressors as tolerated, etiology of persistent shock unclear. ? Post-operative vasoplegia vs. Sepsis. Cardiogenic unlikely given preserved LVEF - Await cultures, started empiric abx given markedly elevated PCT. If cultures negative, repeat PCT in 72 hours and consider discontinuation if markedly reduced - Continue w/ IVF resuscitation - Continue to monitor lactate - Monitor CBC/coags - EEG impressive for severe encephalopathy, no evidence of epileptiform activity/seizures - Recommend formal head imaging when patient more stable - CVVH as per nephrology - Monitor HR, continue with adequate pain control, fever prevention, prn IVF resuscitation. No anti-arrythmics warranted at this time. - SCDs/PPI ? Critical Care Documentation: The patient has the following organ/system impairment(s): Acute blood loss, Acute kidney injury, Circulatory shock, Coagulopathy, Complex life-threatening medical problem(s), Encephalopathy and Respiratory failure (Acute, with Hypoxemia) This patient has a high probability of sudden, clinically significant deterioration, which requires the highest level of physician preparedness to intervene urgently. I managed/supervised life or organ supporting interventions that required frequent physician assessment. I devoted my full attention to the direct care of this patient for the amount of time indicated below. Time I spent with family or surrogate(s) is included only if the patient was incapable of providing the necessary information or participating in medical decision making. Time devoted to teaching is not included. Critical Care Time devoted to this patient is 45 minutes SIGNATURE: Chente Whittaker MD PATIENT NAME: Naveen Akins DATE: January 13, 2018 TIME: 9:35 PM Gilbert Tucker MD 01/15/2018 11:32 AM Signed [facility] - Consultation PATIENT NAME: NAVEEN AKINS CSN: [id number] DATE OF : 1940 SEX/AGE: M/77 PATIENT TYPE: I HOSP [facility] [place] LOCATION: [facility] DATE OF SERVICE: 01/14/[address] Venkat Paniagua. INDICATION: SVT. HISTORY OF PRESENT ILLNESS: This is very ill 77-year-old gentleman transferred from [facility] couple days ago. He had an AAA rupture associated with cardiac arrest requiring CPR, but did have return of spontaneous circulation. He had surgery done, but has been on intubation renal replacement therapy, developed possible DIC and has been hypotensive on Levophed. I am asked to see him because he is having recurrent bouts of SVT. He did receive adenosine, did not work well, started on IV amiodarone. Prior cardiac history is uncertain. He had an echo done yesterday which did show EF of 55%. His past medical history is not otherwise particularly available. He was intubated outside before he arrived here. He apparently does have a family history of heart disease. There is no tobacco and no alcohol listed and not much other history can be obtained. HOME MEDICATIONS: His home meds are listed as metoprolol, Maxzide, Lipitor, and aspirin so presumably hyperlipidemia, hypertension. On exam really nothing further to add. He has had a couple bouts of what appeared to be SVT. PHYSICAL EXAMINATION: GENERAL: Ill-appearing gentleman. He is sedated on propofol. VITAL SIGNS: Current pulse is 110, sinus tach, but he has had what appears to be a rapid narrow tachycardia. He is on Levophed and propofol and now IV amiodarone. He has a current blood pressure on pressors of a probable 100 systolic. The mean is about 70. He is intubated. He is sedated, cannot assess neurologic or psychiatric status. He has mild anasarca. ABDOMEN: Has a large wound VAC cannot be assessed. CHEST: Has diffuse rhonchi and rales throughout all lung muro. CARDIAC: Very distant. Heart sounds, very hard to hear, currently regular. Cannot assess murmur or gallop. NECK: Cannot assess JVD or thyromegaly. Carotid upstrokes probably normal. He has a dialysis catheter in the right chest-neck area. EXTREMITIES: His feet and hands are reasonably well perfused. There are no obvious peripheral stigmata of endocarditis or emboli. LABORATORY DATA: Sodium 142, potassium 4.7, BUN 21, creatinine 2.4, hematocrit 36, white count 9, platelets 59. INR 1.5. His EKG yesterday revealed probable SVT at about 150, low voltage, nonspecific ST-T changes. His EKG today this afternoon is now sinus tachycardia, low voltage. I do not see any troponin here. His chest x-ray today reports diffuse infiltrates consistent with pulmonary edema. IMPRESSION: Supraventricular tachycardia, almost certainly related to metabolic milieu, recent surgery, and use of pressors although Levophed is being used, not a major beta agonist. The line for the dialysis catheter does not appear to be causing this. PLAN: 1. IV amiodarone as we are using, this is the best option. He can receive more adenosine. Given his blood pressure, I certainly do not want to use beta or calcium lyric. Given his renal insufficiency, do not want to have to use any digoxin. His EF is fairly normal. Nothing to suggest any current ischemia. 2. Abdominal aortic aneurysm rupture complicated by arrest, renal failure, possible DIC: Status is tenuous at best: Certainly high risk for fatal outcome despite all the efforts by the surgical service. Thank you for this consult. We will follow with you. Gilbert Tucker MD Cardiology DAC:modl /[id number] Previous Version Dionicio Stevens MD 01/14/2018 8:48 AM Signed Vascular Surgery Progress Note SERVICE DATE: 01/14/2018 Vascular AND Thoracic Surgery Service Pager: For questions or concerns Mon-Fri 6a-5p please page [phone]. After 5pm and on Weekends and Holidays, please page [phone] if in ICU or [phone] if on RNF. Subjective SUBJECTIVE: CVVHD started overnight, transfused platelets Diet: DIET NPO Objective OBJECTIVE: Vitals: Temp (24hrs), Av.3 ?C (97.3 ?F), Min:36 ?C (96.8 ?F), Max:36.5 ?C (97.7 ?F) BP 112/58 Pulse 119 Temp 36.2 ?C (97.2 ?F) (Axillary) Resp 18 Ht 172.7 cm (5' 8) Wt 80.1 kg (176 lb 9.4 oz) SpO2 96% BMI 26.85 kg/m? O2 Therapy: Ventilator IANDO: Date 01/13/18 07 - 01/14/18 0659 01/14/18 07 - 01/15/18 0659 Shift 1939-3700 6908-6835 1269-9485 24 Hour Total 6456-3971 6677-0240 2994-4119 24 Hour Total I N T A K E IV 2200 2770 3066.5 8036.5 NS .45% 1400 2325 3725 Magnesium IVPB 100 100 LR 2000 1000 3000 Fentanyl Volume 100 102.6 202.6 NORepinephrine Volume 70 176.9 246.9 Propofol IV 100 62 162 Ampicillin/Sulbactam (Unasyn) IV 200 400 600 Blood Products 600 257 857 PRBC Intake (mL) 600 600 Platelet mL 257 257 Shift Total 2800 3027 3066.5 8893.5 O U T P U T Urine 20 120 25 165 Tube Output ( Indwelling Urinary Catheter 01/12/18 1108 Assessment Temperature Monitoring 16 Fr) 20 120 25 165 Drains 2500 700 3200 Negative Pressure: Output (mL) (Negative Pressure Wound Therapy 01/12/18 0749 Abdomen) 2500 700 3200 Tubes 380 499 5186 1950 Drain/Tube Output (Drain/Tube 01/12/18 0100 Hemovac Midline Anterior Abdomen) 500 1000 1500 Drain/Tube Output (Drain/Tube 01/12/18 Fecal Management System) 250 200 450 Output (GI Feed/Drain 01/12/18 0100) 0 0 0 Dialysis 155 54 209 Dialysis Output (Ultrafiltration) 155 54 209 Shift Total 3020 1225 1279 5524 Weight (kg) 80.1 80.1 80.1 80.1 80.1 80.1 80.1 80.1 MEDICATIONS Current Facility-Administered Medications: calcium gluconate 4 g in NaCl 0.9% 250 mL 4 g INTRAVENOUS ONCE propofol infusion (DIPRIVAN) 5-60 mcg/kg/min INTRAVENOUS CONTINUOUS ampicillin-sulbactam 3 g in NaCl 0.9% 100 mL MB+ (UNASYN) 3 g INTRAVENOUS q 6 H NaCl 0.9% 1,000 mL iv bolus 1,000 mL INTRAVENOUS PRN DIALYSIS prismaSOL BGK 4 K / 2.5 mEq Ca/Liter 5,000 mL 5,000 mL HEMODIALYSIS continuous (no dispense) prismaSOL BGK 4 K / 2.5 mEq Ca/Liter 5,000 mL 5,000 mL HEMODIALYSIS continuous (no dispense) prismaSOL BGK 4 K / 2.5 mEq Ca/Liter 5,000 mL 5,000 mL HEMODIALYSIS continuous (no dispense) NaCl 0.45% iv infusion 200 mL/hr INTRAVENOUS CONTINUOUS dextrose 40 % 15 g 15 g ORAL PRN Or glucagon 1 mg injection (GLUCAGEN) 1 mg INTRAMUSCULAR PRN Or dextrose 50% in water 25 mL syringe 12.5 g INTRAVENOUS PRN magnesium sulfate 1 g in D5W 100 mL 1 g INTRAVENOUS PRN magnesium sulfate in water 2 g in sterile water 50 ml 2 g INTRAVENOUS PRN fentaNYL 20 mcg/mL iv infusion in NaCl 0.9% 100 mL 25-150 mcg/hr INTRAVENOUS CONTINUOUS pantoprazole 40 mg injection (PROTONIX) 40 mg INTRAVENOUS DAILY (6 AM) NORepinephrine 16 mg in D5W 250 mL (LEVOPHED) 0.6-40 mcg/min INTRAVENOUS CONTINUOUS Chlorhexidine Gluconate 0.12 % 15 mL (PERIDEX) 15 mL ORAL q 12 H perflutren lipid microspheres 1.1 mg/mL 1.3 mL injection (DEFINITY) 1.3 mL INTRAVENOUS PRN(NO DISPENSE) Labs: Recent Labs 01/14/18 0440 01/13/18 2215 01/13/18 1600 01/13/18 0615 01/13/18 0455 01/12/18 1140 NA -- 143 -- 149* < > -- 152* < > 156* K -- 4.9 -- 4.9 < > -- 5.3* < > 2.9* CHLOR -- 112* -- 117* < > -- 118* < > 121* CO2 -- 25 -- 23 < > -- 23 < > 26 BUN -- 23* -- 25* < > -- 24* < > 17 CREAT -- 2.45* -- 2.54* < > -- 2.15* < > 1.18* GLUC -- 88 -- 91 < > -- 91 < > 122* ANION -- 11 -- 14 < > -- 16 < > 12 CA -- 6.7* -- 6.8* < > -- 6.7* < > 8.1* MG -- -- -- -- -- 1.3* -- -- 1.4* P -- -- -- -- -- -- 4.8 -- -- WBC 9.62* 11.29* -- 10.62* < > -- 9.99* < > 4.68 HB 12.1* 13.1* < > 13.0* < > -- 11.4* < > 13.0* HCT 36.5* 38.8* -- 38.3* < > -- 33.0* < > 38.4* PLT 59* 74* -- 56* < > -- 68* < > 79* LACT -- 2.6* -- 4.0* < > -- 6.4* < > -- INR 1.48 1.46 -- 1.55 < > -- 1.43 < > 1.29 PH 7.400 7.359 -- 7.370 < > -- 7.365 < > 7.305* PCO2 37.4 42.0 -- 39.1 < > -- 40.7 < > 47.5* PO2 87.3 104.2* -- 65.2* < > -- 84.6* < > 82.9* BE -1.8 -2.2 -- -2.8 < > -- -2.4 < > -3.4 < > = values in this interval not displayed. Exam: GENERAL: No distress NEURO: sedated, not following commands HEENT: normocephalic, atraumatic LUNGS: Unlabored breathing O2 Therapy: Ventilator CARDIAC: sinus tachy, hypotensive on Levo ABDOMEN: Soft, mildlt D, TTP, VAC intact with SS output EXTREMITIES: MAK, No deformities, + edema SKIN: Skin color, texture, turgor normal, No rashes or lesions ASSESSMENT AND PLAN: Active Hospital Problems Diagnosis Date Noted - Ruptured abdominal aortic aneurysm (AAA) ([facility]) 01/12/2018 - Encephalopathy 01/13/2018 - DIC (disseminated intravascular coagulation) ([facility]) 01/12/2018 - Hemorrhagic shock ([facility]) 01/12/2018 - Acute respiratory failure ([facility]) 01/12/2018 - Cardiac arrest ([facility]) 01/12/2018 - Hypernatremia 01/12/2018 - Hypokalemia 01/12/2018 - Hypomagnesemia 01/12/2018 - Hypophosphatemia 01/12/2018 - Hyperchloremia 01/12/2018 - AAA (abdominal aortic aneurysm, ruptured) ([facility]) 01/12/2018 Overview Note: Added automatically from request for surgery [id number] 77 year old male with Ruptured AAA s/p Emergent Repair, takeback washout, repair of serosal tears x2, on 01/12, hemorrhagic shock, acute resp failure with pulm edema, TERENCE ? - Vent mgmt per MICU - NPO/IVF - Wean Levo as able - Acute blood loss and dilutional anemia and thrombocytopenia- transfusing platelets now, pRBCs on hold for OR - q6 labs - Cont Abthera VAC - TERENCE --> CVVHD running even per Nephro - CXR with bilateral infiltrates, improving by my read - Unasyn empirically, BCx neg x1 day and RCx pending (stain neg) - Hypocalcemia - replacing - 01/13 Echo LVEF 55-60%, mild LVH - OR today ? Assessment and plan discussed with attending: Dr. Paniagua SIGNATURE: Dionicio Stevens MD PATIENT NAME: Naveen Akins DATE: January 14, 2018 TIME: 6:42 AM Vascular AND Thoracic Surgery Service Pager: For questions or concerns Mon-Tue 6a-5p please page [phone]. After 5pm and on Weekends and Holidays, please page [phone] if in ICU or [phone] if on RNF. Elder Granda MD 01/14/2018 7:44 AM Signed ICU - PROGRESS NOTE SERVICE DATE: 01/14/2018 SERVICE TIME: 7:28 AM Admission Date: 01/12/2018 AGE: [id number] year old LOS: 2 days Subjective REASON FOR ICU ADMISSION: AAA rupture s/p repair ROS not possible 2/2 mental status. Per RN patient's pressor requirements going up. Going for surgery at 8AM today Objective VITAL SIGNS (last 24hrs min/max): Temp Av.2 ?C (97.2 ?F) Min: 36 ?C (96.8 ?F) Max: 36.5 ?C (97.7 ?F) Pulse Av.5 Min: 102 Max: 165 Arterial BP 1 Min: 77/48 Max: 176/81 Cuff BP Min: 112/58 Max: 112/58 Pain Score: 0/10 Vital signs reviewed. BP 112/58 Pulse 123 Temp (Src) 97.2 (Axillary) Resp 16 Ht 5' 8 (1.73m) Wt 176 lb 9.4 oz (80.1kg) SpO2 97% BMI 26.86 kg/(m2). Temp (24hrs), Av.2 ?C (97.2 ?F), Min:36 ?C (96.8 ?F), Max:36.5 ?C (97.7 ?F) NET FLUID BALANCE Intake/Output Summary (Last 24 hours) at 01/14/18 0728 Last data filed at 01/14/18 0617 Gross per 24 hour Intake 8893.5 ml Output 5029 ml Net 3864.5 ml MEDICATIONS Current Facility-Administered Medications: calcium gluconate 4 g in NaCl 0.9% 250 mL 4 g INTRAVENOUS ONCE propofol infusion (DIPRIVAN) 5-60 mcg/kg/min INTRAVENOUS CONTINUOUS ampicillin-sulbactam 3 g in NaCl 0.9% 100 mL MB+ (UNASYN) 3 g INTRAVENOUS q 6 H NaCl 0.9% 1,000 mL iv bolus 1,000 mL INTRAVENOUS PRN DIALYSIS prismaSOL BGK 4 K / 2.5 mEq Ca/Liter 5,000 mL 5,000 mL HEMODIALYSIS continuous (no dispense) prismaSOL BGK 4 K / 2.5 mEq Ca/Liter 5,000 mL 5,000 mL HEMODIALYSIS continuous (no dispense) prismaSOL BGK 4 K / 2.5 mEq Ca/Liter 5,000 mL 5,000 mL HEMODIALYSIS continuous (no dispense) NaCl 0.45% iv infusion 200 mL/hr INTRAVENOUS CONTINUOUS dextrose 40 % 15 g 15 g ORAL PRN Or glucagon 1 mg injection (GLUCAGEN) 1 mg INTRAMUSCULAR PRN Or dextrose 50% in water 25 mL syringe 12.5 g INTRAVENOUS PRN magnesium sulfate 1 g in D5W 100 mL 1 g INTRAVENOUS PRN magnesium sulfate in water 2 g in sterile water 50 ml 2 g INTRAVENOUS PRN fentaNYL 20 mcg/mL iv infusion in NaCl 0.9% 100 mL 25-150 mcg/hr INTRAVENOUS CONTINUOUS pantoprazole 40 mg injection (PROTONIX) 40 mg INTRAVENOUS DAILY (6 AM) NORepinephrine 16 mg in D5W 250 mL (LEVOPHED) 0.6-40 mcg/min INTRAVENOUS CONTINUOUS Chlorhexidine Gluconate 0.12 % 15 mL (PERIDEX) 15 mL ORAL q 12 H perflutren lipid microspheres 1.1 mg/mL 1.3 mL injection (DEFINITY) 1.3 mL INTRAVENOUS PRN(NO DISPENSE) Lines, Drains, and Airways Line Arterial Line 01/12/18 0238 Arterial Line Left Brachial 2 days Central Line Double Lumen 01/12/18 0239 Right Neck 2 days Dialysis / Apheresis Double Lumen 01/13/18 1136 Left Neck less than 1 day Drain Drain/Tube 01/12/18 0100 Hemovac Midline Anterior Abdomen 2 days Drain/Tube 01/12/18 Fecal Management System 2 days GI Feed/Drain 01/12/18 0100 2 days Indwelling Urinary Catheter 01/12/18 1108 Assessment Temperature Monitoring 16 Fr 1 day Airway Airway Endotracheal Tube 01/12/18 1138 1 day PHYSICAL EXAM PERFORMED: Constitutional: Lying in bed, appears comfortable HEENT: Intubated, IJ line in place Cardiovascular: Regular rhythm Respiratory: Air entry equal bilaterally %FIO2 Min: 60 Max: 80 Abdomen: Wound vac in place Extremities: Edema- Yes, Peripheral pulses present Neurologic: Sedated Respiratory/Nursing Documentation: O2 Therapy: Ventilator (01/14/18411) Invasive Ventilator Mode: Pressure Regulated Volume Control (01/14/18411) Set Ventilator Respiratory Rate (BPM): 18 (01/14/18411) Total Respiratory Rate (BPM): 18 (01/14/18411) Tidal Volume Set (mL): 500 (01/14/18411) Exhaled Tidal Volume (mL): 501 (01/14/18411) Minute Volume (L): 9.1 (01/14/18411) Peak Inspiratory Pressure (cm H2O): 24 (01/14/18411) PEEP/CPAP (cm H2O): 8 (01/14/18411) HEMODYNAMIC DATA: Reviewed NUTRITION: Enteral Feeds: No NPO DATA: Diagnostic tests reviewed for today's visit, films/specimens were personally reviewed by me: Most recent labs and imaging results. LABS: Recent Labs 01/14/1843901/13/18221401/13/18 0615 WBC 9.62* 11.29* < > -- RBC 4.32* 4.63 < > -- HB 12.1* 13.1* < > -- HCT 36.5* 38.8* < > -- MCV 84.5 83.8 < > -- PLT 59* 74* < > -- GLUC -- 88 < > -- BUN -- 23* < > -- CREAT -- 2.45* < > -- NA -- 143 < > -- K -- 4.9 < > -- CHLOR -- 112* < > -- CO2 -- 25 < > -- CA -- 6.7* < > -- PTSEC 14.9* 14.8* < > -- APTT 42.7* 38.7* < > -- INR 1.48 1.46 < > -- MG -- -- -- 1.3* < > = values in this interval not displayed. ABG: Recent Labs 01/14/1843901/13/18221401/13/18 1600 PH 7.400 7.359 7.370 PO2 87.3 104.2* 65.2* PCO2 37.4 42.0 39.1 Assessment/Plan IMPRESSION: Critical Care Documentation: The patient has the following organ/system impairment(s): Circulatory shock, Complex life-threatening medical problem(s) and Respiratory failure (Acute, with Hypoxemia) 77 year old male with PMH of AAA who was transferred to [facility] in shock 2/2 ruptured AAA c/b cardiac arrest s/p CPR and ROSC and s/p abdominal washout, repacking and repair of serosal tears x2. Hemorrhagic shock, currently on pressors. Bloody output in wound vac. Received multiple units of pRBC, platelets, cryo, FFP as part of massive transfusion protocol. IV fluids maintenance and bolus ongoing. Acute hypoxic respiratory failure 2/2 pulmonary edema in the setting of massive transfusion. Intubated and mechanically ventilated. Tracheal aspirate NGTD, on Unasyn Acute blood loss anemia ATN on CVVH PLAN: Continue mechanical ventilation, wean PEEP and FiO2 as able to target SpO2 > 92% Continue IV fluids, pressors to a MAP goal of 65. Target net even. If abdomen closed will have to be cautious with IVF and monitor for ACS. CVVH per nephro Continue ABx and d/c if respiratory Cx remain negative tomorrow and if no new infection suspected Wound Vac and AAA recs per vascular ICU PPx This patient has a high probability of sudden, clinically significant deterioration, which requires the highest level of physician preparedness to intervene urgently. I managed/supervised life or organ supporting interventions that required frequent physician assessment. I devoted my full attention to the direct care of this patient for the amount of time indicated below. Time I spent with family or surrogate(s) is included only if the patient was incapable of providing the necessary information or participating in medical decision making. Time devoted to teaching is not included. Discussed with staff Time spent providing critical care services: 35 minutes excluding procedures. SIGNATURE: Elder Granda MD PATIENT NAME: Naveen Akins DATE: January 14, 2018 TIME: 7:28 AM Anupam Juárez MD 01/14/2018 8:15 AM Signed ANESTHESIOLOGY DAY OF SURGERY NOTE SERVICE DATE: 01/14/2018 SERVICE TIME: 8:12 AM : 1940 Procedure(s) (LRB): EXPLORATION ABDOMINAL VESSELS (N/A) OMENTECTOMY (N/A) Surgeon(s): Venkat Woods Estimated body mass index is 26.85 kg/m? as calculated from the following: Height as of this encounter: 172.7 cm (5' 8). Weight as of this encounter: 80.1 kg (176 lb 9.4 oz). Most recent hematocrit and potassium results: Hematocrit 36.5 01/14/2018 Potassium 4.7 01/14/2018 ANES DOS/PREOP NOTE: Vitals: 01/14/18 0500 01/14/18 0600 01/14/18 0700 01/14/18 0731 BP: Pulse: 116 119 (!) 123 115 Resp: Temp: TempSrc: SpO2: 97% 96% 97% 98% Weight: Height: ACTIVE PROBLEM LIST Gallstone Pancreatitis Ruptured Abdominal Aortic Aneurysm (Aaa) (Hcc) Dic (Disseminated Intravascular Coagulation) (Hcc) Hemorrhagic Shock (Hcc) Acute Respiratory Failure (Hcc) Cardiac Arrest (Hcc) Hypernatremia Hypokalemia Hypomagnesemia Hypophosphatemia Hyperchloremia Encephalopathy Aaa (Abdominal Aortic Aneurysm, Ruptured) (Hcc) PAST MEDICAL HISTORY Diagnosis Date - DIC (disseminated intravascular coagulation) (HCC) 01/12/2018 PAST SURGICAL HISTORY Procedure Laterality Date - LAP CHOLECYSTECT/CHOLANGIOGRAPHY 05-28-09 - REPAIR UMBILICAL NATAN,5+Y/O,REDUC 05-28-09 FAMILY HISTORY Problem Relation Age of Onset - Coronary Artery Disease Father - None Mother Social History: Social History Substance Use Topics - Smoking status: Never Smoker - Smokeless tobacco: Not on file - Alcohol use No No current facility-administered medications on file prior to encounter. Current Outpatient Prescriptions on File Prior to Encounter: metoprolol succinate(TOPROL XL 50 MG 24 HR TAB) Take one(1) tablet daily. ASPIRIN 325 MG TAB Take one(1) tablet daily. triamterene/hydrochlorothiazid(DYAZIDE 37.5 MG-25 MG CAP) take one half (1/2) tablet daily LIPITOR 10 MG TAB Take one(1) tablet daily. Current Facility-Administered Medications: calcium gluconate 4 g in NaCl 0.9% 250 mL 4 g INTRAVENOUS ONCE Dionicio (Res) Stevens Last Rate: 250 mL/hr at 01/14/18 0752 4 g at 01/14/18 0752 propofol infusion (DIPRIVAN) 5-60 mcg/kg/min INTRAVENOUS CONTINUOUS Chentejun Whittaker Last Rate: 4.81 mL/hr at 01/14/18 0628 10 mcg/kg/min at 01/14/1828 ampicillin-sulbactam 3 g in NaCl 0.9% 100 mL MB+ (UNASYN) 3 g INTRAVENOUS q 6 H Chente R Vivici Last Rate: 200 mL/hr at 01/14/18 0608 3 g at 01/14/18 0608 NaCl 0.9% 1,000 mL iv bolus 1,000 mL INTRAVENOUS PRN DIALYSIS Shen Lorenzo prismaSOL BGK 4 K / 2.5 mEq Ca/Liter 5,000 mL 5,000 mL HEMODIALYSIS continuous (no dispense) Shen Lorenzo 5,000 mL at 01/14/18 020 prismaSOL BGK 4 K / 2.5 mEq Ca/Liter 5,000 mL 5,000 mL HEMODIALYSIS continuous (no dispense) Shen Lorenzo 5,000 mL at 01/14/18 020 prismaSOL BGK 4 K / 2.5 mEq Ca/Liter 5,000 mL 5,000 mL HEMODIALYSIS continuous (no dispense) Shen Lorenzo 5,000 mL at 01/14/18 020 NaCl 0.45% iv infusion 200 mL/hr INTRAVENOUS CONTINUOUS Elder Granda Last Rate: 200 mL/hr at 01/14/18 06 200 mL/hr at 01/14/18606 dextrose 40 % 15 g 15 g ORAL PRN Jack Regula Or glucagon 1 mg injection (GLUCAGEN) 1 mg INTRAMUSCULAR PRN Jack Regula Or dextrose 50% in water 25 mL syringe 12.5 g INTRAVENOUS PRN Jack Regula magnesium sulfate 1 g in D5W 100 mL 1 g INTRAVENOUS PRN Emilie (Res) Cardella magnesium sulfate in water 2 g in sterile water 50 ml 2 g INTRAVENOUS PRN Emilie (Res) Cardella Last Rate: 25 mL/hr at 01/13/18 1004 2 g at 01/13/18 1004 fentaNYL 20 mcg/mL iv infusion in NaCl 0.9% 100 mL 25-150 mcg/hr INTRAVENOUS CONTINUOUS Emilie (Res) Cardella Last Rate: 7.5 mL/hr at 01/14/18 0237 150 mcg/hr at 01/14/18 0237 pantoprazole 40 mg injection (PROTONIX) 40 mg INTRAVENOUS DAILY (6 AM) Emilie (Edenilson) Cardella 40 mg at 01/14/18 0608 NORepinephrine 16 mg in D5W 250 mL (LEVOPHED) 0.6-40 mcg/min INTRAVENOUS CONTINUOUS Chente Whittaker Last Rate: 32.81 mL/hr at 01/14/18 0207 35 mcg/min at 01/14/18 0207 Chlorhexidine Gluconate 0.12 % 15 mL (PERIDEX) 15 mL ORAL q 12 H Elder Yu) Kalee 15 mL at 01/13/18 212 perflutren lipid microspheres 1.1 mg/mL 1.3 mL injection (DEFINITY) 1.3 mL INTRAVENOUS PRN(NO DISPENSE) Chente Whittaker Allergies: ALLERGIES No Known Allergies DOS EXAM: Adequate NPO Status: Yes Anesthetic Risks, Benefits, Alternatives, Personnel and Consent Discussed: No: Consent by Surgical service, ICU or Primary service Patient agrees to proceed: Yes, per patient's parent/guardian Previous Anesthesia: No history of adverse event Airway Assessment: Patient intubated or has existing tracheostomy. Symptoms of Sleep Apnea: Male gender Dentition: intubated Additional Physical Exam: Lungs: Patient health status unchanged since recent history and physical. See history and physical for exam findings. Cardiac: Patient health status unchanged since recent history and physical. See history and physical for exam findings. Additional Pertinent Findings: N/A Blood Products: Will accept Blood/Blood Products Anesthetic Plan: General Anesthetic Monitoring: Standard ASA Monitors, Invasive Hemodynamic Monitoring Arterial line and CVP, Potential Prolonged Intubation, Potential ICU Admission Postop and Potential Multiple Transfusions Pain Management Plan: Parenteral or Oral ASA Class: 4 Other Medical Problems: Open AAA repair. Brought back to OR for coagulopathy. coagulopahty seems to have resolved. In ICU intubated on norepinephrine gtt. CVVHD. Open abdomen with abthera. Plan to OR for reexploration, possible resection of bowel. Reapplication of wound vac Platelets 59 this AM Antibiotics: - Unasyn q 6 hours, last dose 608, next dose due 1208 Recent Labs 01/14/18 0440 01/13/18 2215 01/13/18 2120 01/13/18 1600 01/13/18 0615 01/13/18 0455 01/12/18 1140 WBC 9.62* 11.29* -- 10.62* < > -- 9.99* < > 4.68 HB 12.1* 13.1* 13.0* 13.0* < > -- 11.4* < > 13.0* HCT 36.5* 38.8* -- 38.3* < > -- 33.0* < > 38.4* PLT 59* 74* -- 56* < > -- 68* < > 79* INR 1.48 1.46 -- 1.55 < > -- 1.43 < > 1.29 APTT 42.7* 38.7* -- 37.6* < > -- 36.5* < > 32.9 NA 142 143 -- 149* < > -- 152* < > 156* K 4.7 4.9 -- 4.9 < > -- 5.3* < > 2.9* CHLOR 110* 112* -- 117* < > -- 118* < > 121* CO2 24 25 -- 23 < > -- 23 < > 26 BUN 21* 23* -- 25* < > -- 24* < > 17 CREAT 2.38* 2.45* -- 2.54* < > -- 2.15* < > 1.18* GLUC 85 88 -- 91 < > -- 91 < > 122* CA 6.9* 6.7* -- 6.8* < > -- 6.7* < > 8.1* MG 1.9 -- -- -- -- 1.3* -- -- 1.4* P 3.1 -- -- -- -- -- 4.8 -- -- < > = values in this interval not displayed. Antibody Screen Date Value Ref Range Status 01/12/2018 NEGATIVE Final Chronic Beta Lyric medication administered within 24 hours: N/A I have interviewed and examined the patient. I have reviewed the medical record and/or the pre-anesthesia evaluation, pertinent labs, and test results. Significant changes in the patient's condition since the History and Physical, not otherwise documented in primary service progress notes: No This contains updated information obtained within 48 hours of Surgery/Procedure. SIGNATURE: Anupam Juárez MD PATIENT NAME: Naveen Akins DATE: January 14, 2018 TIME: 8:12 AM CSN: [id number] Renate Handy DO 01/14/2018 10:14 AM Signed NEPHROLOGY PROGRESS NOTE SERVICE DATE: 01/14/2018 SERVICE TIME: 10:08 AM Subjective INTERVAL HISTORY: Pt went to OR this morning for wash out and check bowel. Per RN, linkthing was stable He just arrived back and is off CRRT Planning to restart MEDICATIONS: Current hospital medications: [MAR Hold due to Transfer] calcium gluconate 4 g in NaCl 0.9% 250 mL 4 g INTRAVENOUS ONCE [MAR Hold due to Transfer] propofol infusion (DIPRIVAN) 5- 60 mcg/kg/min INTRAVENOUS CONTINUOUS [MAR Hold due to Transfer] ampicillin-sulbactam 3 g in NaCl 0.9% 100 mL MB+ (UNASYN) 3 g INTRAVENOUS q 6 H [MAR Hold due to Transfer] NaCl 0.9% 1,000 mL iv bolus 1,000 mL INTRAVENOUS PRN DIALYSIS [MAR Hold due to Transfer] prismaSOL BGK 4 K / 2.5 mEq Ca/Liter 5,000 mL 5,000 mL HEMODIALYSIS continuous (no dispense) [MAR Hold due to Transfer] prismaSOL BGK 4 K / 2.5 mEq Ca/Liter 5,000 mL 5,000 mL HEMODIALYSIS continuous (no dispense) [MAR Hold due to Transfer] prismaSOL BGK 4 K / 2.5 mEq Ca/Liter 5,000 mL 5,000 mL HEMODIALYSIS continuous (no dispense) [MAR Hold due to Transfer] NaCl 0.45% iv infusion 200 mL/hr INTRAVENOUS CONTINUOUS [MAR Hold due to Transfer] dextrose 40 % 15 g 15 g ORAL PRN [MAR Hold due to Transfer] glucagon 1 mg injection (GLUCAGEN) 1 mg INTRAMUSCULAR PRN [MAR Hold due to Transfer] dextrose 50% in water 25 mL syringe 12.5 g INTRAVENOUS PRN [MAR Hold due to Transfer] magnesium sulfate 1 g in D5W 100 mL 1 g INTRAVENOUS PRN [MAR Hold due to Transfer] magnesium sulfate in water 2 g in sterile water 50 ml 2 g INTRAVENOUS PRN [MAR Hold due to Transfer] fentaNYL 20 mcg/mL iv infusion in NaCl 0.9% 100 mL 25-150 mcg/hr INTRAVENOUS CONTINUOUS [MAR Hold due to Transfer] pantoprazole 40 mg injection (PROTONIX) 40 mg INTRAVENOUS DAILY (6 AM) [MAR Hold due to Transfer] NORepinephrine 16 mg in D5W 250 mL (LEVOPHED) 0.6-40 mcg/min INTRAVENOUS CONTINUOUS [MAR Hold due to Transfer] Chlorhexidine Gluconate 0.12 % 15 mL (PERIDEX) 15 mL ORAL q 12 H [AUG Hold due to Transfer] perflutren lipid microspheres 1.1 mg/mL 1.3 mL injection (DEFINITY) 1.3 mL INTRAVENOUS PRN(NO DISPENSE) Vital Signs; Patient Vitals for the past 24 hrs: BP Temp Temp src Pulse Resp SpO2 01/14/18 0731 - - - 115 18 98 % 01/14/18 0700 - - - (!) 123 16 97 % 01/14/18 0600 - - - 119 18 96 % 01/14/18 0500 - - - 116 18 97 % 01/14/18 0412 - - - - 18 - 01/14/18 0400 - - - 118 18 98 % 01/14/18 0300 - - - (!) 121 18 97 % 01/14/18 0200 - - - (!) 122 18 97 % 01/14/18 0100 - - - (!) 121 17 97 % 01/14/18 0000 - - - (!) 122 14 97 % 01/13/18 2306 - - - 119 18 99 % 01/13/18 2300 - - - 119 18 99 % 01/13/18 2200 - - - 120 17 99 % 01/13/18 2100 - - - (!) 165 17 98 % 01/13/18 2012 - - - 113 18 96 % 01/13/18 2000 - - - 115 18 95 % 01/13/18 1948 - - - 116 17 96 % 01/13/18 1900 - - - 115 18 96 % 01/13/18 1856 112/58 36.2 ?C (97.2 ?F) Axillary 114 18 97 % 01/13/18 1845 - - - 117 18 97 % 01/13/18 1830 - - - 115 18 90 % 01/13/18 1815 - - - 113 18 92 % 01/13/18 1800 - - - 113 18 92 % 01/13/18 1745 - - - 111 17 93 % 01/13/18 1730 - - - 109 15 93 % 01/13/18 1715 - - - 107 18 95 % 01/13/18 1700 - - - 109 18 96 % 01/13/18 1645 - - - 111 18 95 % 01/13/18 1630 - - - 111 18 95 % 01/13/18 1615 - - - 109 18 94 % 01/13/18 1600 - - - 111 17 94 % 01/13/18 1545 - - - 107 18 94 % 01/13/18 1530 - - - 103 18 94 % 01/13/18 1515 - - - 117 18 97 % 01/13/18 1500 - - - 117 18 96 % 01/13/18 1445 - - - 114 18 95 % 01/13/18 1430 - - - 104 18 97 % 01/13/18 1425 - 36.2 ?C (97.2 ?F) Axillary 104 18 95 % 01/13/18 1415 - 36.4 ?C (97.5 ?F) Axillary 104 18 96 % 01/13/18 1400 - - - 105 18 96 % 01/13/18 1345 - - - 107 18 95 % 01/13/18 1330 - - - 108 18 94 % 01/13/18 1315 - - - 111 18 95 % 01/13/18 1300 - 36 ?C (96.8 ?F) Axillary 113 18 96 % 01/13/18 1245 - - - 111 19 97 % 01/13/18 1234 - - - 113 - 94 % 01/13/18 1230 - - - 110 18 90 % 01/13/18 1215 - - - 107 18 95 % 01/13/18 1200 - 36 ?C (96.8 ?F) Axillary 106 18 95 % 01/13/18 1145 - - - 106 18 95 % 01/13/18 1130 - - - 109 18 94 % 01/13/18 1115 - - - 109 18 94 % 01/13/18 1100 - - - 108 18 95 % 01/13/18 1045 - - - 107 18 95 % 01/13/18 1030 - - - 108 18 94 % 01/13/18 1015 - - - 102 18 96 % Current wt: Last 1 Encounter Wt Readings: Date: Wt: 01/12/2018 80.1 kg (176 lb 9.4 oz) Objective PHYSICAL EXAM: General: Sedated. On mechanical ventilator. HEENT: Atraumatic, normocephalic, Intubated. Eyes: Pupils equal, round and reactive to light. Neck: No JVD, no thyromegaly, no lymphadenopathy. HD catheter on R Chest: Coarse BS bilaterally. Cardiac: S1 S2 RR, no murmurs, gallops or rubs Abdomen: Wound vac in place. Abdomen is soft. Neuro: Sedated, No FND. SKIN: No rashes, good skin turgor. Extremities: No edema. ? ? Labs: Recent Labs 01/14/18 0440 01/13/18 2215 01/13/18 2120 01/13/18 1600 01/13/18 1015 01/13/18 0615 01/13/18 0455 01/12/18 1140 CREAT 2.38* 2.45* -- 2.54* 2.49* -- 2.15* < > 1.18* BUN 21* 23* -- 25* 25* -- 24* < > 17 NA 142 143 -- 149* 150* -- 152* < > 156* K 4.7 4.9 -- 4.9 5.1 -- 5.3* < > 2.9* CHLOR 110* 112* -- 117* 116* -- 118* < > 121* CO2 24 25 -- 23 23 -- 23 < > 26 ANION 13 11 -- 14 16 -- 16 < > 12 GLUC 85 88 -- 91 99 -- 91 < > 122* CA 6.9* 6.7* -- 6.8* 6.9* -- 6.7* < > 8.1* P 3.1 -- -- -- -- -- 4.8 -- -- MG 1.9 -- -- -- -- 1.3* -- -- 1.4* WBC 9.62* 11.29* -- 10.62* 11.26* -- 9.99* < > 4.68 HB 12.1* 13.1* 13.0* 13.0* 11.0* -- 11.4* < > 13.0* HCT 36.5* 38.8* -- 38.3* 32.6* -- 33.0* < > 38.4* PLT 59* 74* -- 56* 64* -- 68* < > 79* < > = values in this interval not displayed. Recent Labs 01/14/18 0440 01/13/18 2215 01/13/18 1600 01/13/18 1015 01/13/18 0455 PH 7.400 7.359 7.370 7.378 7.365 PCO2 37.4 42.0 39.1 37.7 40.7 PO2 87.3 104.2* 65.2* 77.2* 84.6* LACT 2.4* 2.6* 4.0* 5.5* 6.4* Assessment/Plan 1. Acute kidney injury on chronic kidney disease stage 3. Baseline SCr is 1.36 mg/dL on 11/14/17. CKD is likely due to nephrosclerosis related to PAD. TERENCE is 2/2 ischemic ATN from hemorrhagic shock. Pt is anuric with increased pressor requirement -cont CVVHDF -run even -monitor lytles q8 hrs while on CRRT, lytes reviewed ? 2. Shock. Likely hemorrhagic shock-massive blood loss from ruptured AAA. Currently requiring pressor. Ongoing volume resuscitation. Running even with CRRT ? 3. Hypernatremia. Corrected 4. Hyperkalemia. Mild. 2/2 TERENCE. Stable on CRRT. ? 5. Ruptured AAA. s/p repair 01/12/18. Management as per vascular surgery. ? 6. Acute hypoxic respiratory failure. Ventilator dependent. Vent management as per . ? ? Thank you for allowing me to participate in care of Naveen Akins. Please do not hesitate to contact me at [phone] with any concerns SIGNATURE: Renate Handy DO PATIENT NAME: Naveen Akins DATE: January 14, 2018 TIME: 10:08 AM PAGER/CONTACT #: Kannan Felder MD 01/14/2018 12:04 PM Attested Attestation signed by Mark Woods at 01/14/2018 2:33 PM Seen in OR Mark Woods MD PROGRESS NOTE EGS Surgery Progress Note Emergency General Surgery Service Pager: For questions or concerns Mon-Tue 6a-5p please page [phone]. After 5pm and on Weekends and Holidays, please page [phone] if in ICU or [phone] if on RNF. SERVICE DATE: 01/14/2018 SERVICE TIME: 12:02 PM SUBJECTIVE: Subjective Subjective: This is a 77 year old male Pt intubated. Plan for take back to or today for reexploration. Wound vac put out over 3L. Still on norepinephrine. Bowel movement No Flatus No Diet DIET NPO Ambulating No Nausea No Emesis No Current Facility-Administered Medications: heparin 5,000 Units injection 5,000 Units SUBCUTANEOUS q 12 H propofol infusion (DIPRIVAN) 5-60 mcg/kg/min INTRAVENOUS CONTINUOUS ampicillin-sulbactam 3 g in NaCl 0.9% 100 mL MB+ (UNASYN) 3 g INTRAVENOUS q 6 H NaCl 0.9% 1,000 mL iv bolus 1,000 mL INTRAVENOUS PRN DIALYSIS prismaSOL BGK 4 K / 2.5 mEq Ca/Liter 5,000 mL 5,000 mL HEMODIALYSIS continuous (no dispense) prismaSOL BGK 4 K / 2.5 mEq Ca/Liter 5,000 mL 5,000 mL HEMODIALYSIS continuous (no dispense) prismaSOL BGK 4 K / 2.5 mEq Ca/Liter 5,000 mL 5,000 mL HEMODIALYSIS continuous (no dispense) NaCl 0.45% iv infusion 200 mL/hr INTRAVENOUS CONTINUOUS dextrose 40 % 15 g 15 g ORAL PRN Or glucagon 1 mg injection (GLUCAGEN) 1 mg INTRAMUSCULAR PRN Or dextrose 50% in water 25 mL syringe 12.5 g INTRAVENOUS PRN magnesium sulfate 1 g in D5W 100 mL 1 g INTRAVENOUS PRN magnesium sulfate in water 2 g in sterile water 50 ml 2 g INTRAVENOUS PRN fentaNYL 20 mcg/mL iv infusion in NaCl 0.9% 100 mL 25-150 mcg/hr INTRAVENOUS CONTINUOUS pantoprazole 40 mg injection (PROTONIX) 40 mg INTRAVENOUS DAILY (6 AM) NORepinephrine 16 mg in D5W 250 mL (LEVOPHED) 0.6-40 mcg/min INTRAVENOUS CONTINUOUS Chlorhexidine Gluconate 0.12 % 15 mL (PERIDEX) 15 mL ORAL q 12 H perflutren lipid microspheres 1.1 mg/mL 1.3 mL injection (DEFINITY) 1.3 mL INTRAVENOUS PRN(NO DISPENSE) OBJECTIVE: Objective PHYSICAL EXAM: VITAL SIGNS BP 138/75 Pulse 105 Temp (Src) 94.1 (Axillary) Resp 18 Ht 5' 8 (1.73m) Wt 176 lb 9.4 oz (80.1kg) SpO2 98% BMI 26.86 kg/(m2). Temp (24hrs), Av ?C (96.8 ?F), Min:34.5 ?C (94.1 ?F), Max:36.6 ?C (97.9 ?F) Date 01/13/18 07 - 01/14/18 0659 01/14/18 07 - 01/15/18 0659 Shift 5140-9799 7721-2585 1414-6003 24 Hour Total 1664-7283 2725-9875 2264-6140 24 Hour Total I N T A K E IV 2200 2770 3066.5 8036.5 3000 3000 NS 0.9% 3000 3000 NS .45% 1400 2325 3725 Magnesium IVPB 100 100 LR 2000 1000 3000 Fentanyl Volume 100 102.6 202.6 NORepinephrine Volume 70 176.9 246.9 Propofol IV 100 62 162 Ampicillin/Sulbactam (Unasyn) IV 200 400 600 Blood Products 600 257 857 PRBC Intake (mL) 600 600 Platelet mL 257 257 Shift Total 2800 3027 3066.5 8893.5 3000 3000 O U T P U T Urine 20 120 25 165 80 80 Tube Output ( Indwelling Urinary Catheter 01/12/18 1108 Assessment Temperature Monitoring 16 Fr) 20 120 25 165 80 80 Drains 2500 700 3200 500 500 Negative Pressure: Output (mL) (Negative Pressure Wound Therapy 01/12/18 0749 Abdomen) 2500 700 3200 500 500 Tubes 790 549 7042 1950 1350 1350 Drain/Tube Output (Drain/Tube 01/12/18 0100 Hemovac Midline Anterior Abdomen) 500 1000 1500 Drain/Tube Output (Drain/Tube 01/12/18 Fecal Management System) 250 200 450 250 250 Output (GI Feed/Drain 01/12/18 0100) 0 0 0 1100 1100 Dialysis 155 59 214 Dialysis Output (Ultrafiltration) 155 59 214 Shift Total 3020 1225 1284 5529 1930 1930 Weight (kg) 80.1 80.1 80.1 80.1 80.1 80.1 80.1 80.1 GENERAL: intubated/sedated SKIN: Skin color, texture, turgor normal. No rashes or lesions. LUNGS: Unlabored breathing on O2 Therapy: Ventilator on sating at SpO2: 98 % CARDIAC: rate and rhythm as above, ABDOMEN: No masses, hepatosplenomegaly, No lymphadenopathy and wound vac in place EXTREMITIES: Deferred WOUND: wound vac In place DATA: Diagnostic tests reviewed for today's visit: Recent Labs 01/14/18 0440 01/13/18 2215 01/13/18 1600 PH 7.400 7.359 7.370 PCO2 37.4 42.0 39.1 PO2 87.3 104.2* 65.2* BE -1.8 -2.2 -2.8 Recent Labs 01/14/18 0440 01/13/18 2215 01/13/18 2120 01/13/18 1600 01/13/18 1015 01/13/18 0615 01/13/18 0455 01/12/18 1140 CREAT 2.38* 2.45* -- 2.54* 2.49* -- 2.15* < > 1.18* BUN 21* 23* -- 25* 25* -- 24* < > 17 NA 142 143 -- 149* 150* -- 152* < > 156* K 4.7 4.9 -- 4.9 5.1 -- 5.3* < > 2.9* CHLOR 110* 112* -- 117* 116* -- 118* < > 121* CO2 24 25 -- 23 23 -- 23 < > 26 ANION 13 11 -- 14 16 -- 16 < > 12 GLUC 85 88 -- 91 99 -- 91 < > 122* CA 6.9* 6.7* -- 6.8* 6.9* -- 6.7* < > 8.1* P 3.1 -- -- -- -- -- 4.8 -- -- MG 1.9 -- -- -- -- 1.3* -- -- 1.4* WBC 9.62* 11.29* -- 10.62* 11.26* -- 9.99* < > 4.68 HB 12.1* 13.1* 13.0* 13.0* 11.0* -- 11.4* < > 13.0* HCT 36.5* 38.8* -- 38.3* 32.6* -- 33.0* < > 38.4* PLT 59* 74* -- 56* 64* -- 68* < > 79* LACT 2.4* 2.6* -- 4.0* 5.5* -- 6.4* < > -- INR 1.48 1.46 -- 1.55 1.59 -- 1.43 < > 1.29 < > = values in this interval not displayed. ASSESSMENT AND PLAN: Active Hospital Problems Diagnosis Date Noted - Ruptured abdominal aortic aneurysm (AAA) ([facility]) 01/12/2018 - Encephalopathy 01/13/2018 - DIC (disseminated intravascular coagulation) ([facility]) 01/12/2018 - Hemorrhagic shock ([facility]) 01/12/2018 - Acute respiratory failure ([facility]) 01/12/2018 - Cardiac arrest ([facility]) 01/12/2018 - Hypernatremia 01/12/2018 - Hypokalemia 01/12/2018 - Hypomagnesemia 01/12/2018 - Hypophosphatemia 01/12/2018 - Hyperchloremia 01/12/2018 - AAA (abdominal aortic aneurysm, ruptured) ([facility]) 01/12/2018 Overview Note: Added automatically from request for surgery [id number] Assessment/Plan with Ruptured AAA s/p Emergent Repair, takeback washout, repair of serosal tears x2, on 01/12, hemorrhagic shock, acute resp failure with pulm edema, TERENCE ? - Vent mgmt per MICU - NPO/IVF - Wean Levo as able - Acute blood loss and dilutional anemia and thrombocytopenia- transfused platelet 01/13/18 - q6 labs - Cont Abthera VAC - TERENCE --> CVVHD per Nephro - Unasyn empirically, BCx and RCx pending - OR 01/14 for take back SIGNATURE: Kannan Felder MD PATIENT NAME: Naveen Akins DATE: January 14, 2018 TIME: 12:02 PM PAGER: [phone] Roxane Silva RN, RN 01/14/2018 12:40 PM Signed CRRT restarted without problem. Report given to [employer]. PT stable Paulo Lovelace APRN.MAINTENANCE TEAM MEMBER 01/14/2018 3:29 PM Signed MICU - PROGRESS NOTE SERVICE DATE: 01/14/2018 SERVICE TIME: 2:18 PM Admission Date: 01/12/2018 AGE: [age] year old LOS: 2 days Subjective REASON FOR ICU ADMISSION: Respiratory Failure and Shock Objective PROBLEMS: ACTIVE PROBLEM LIST Gallstone Pancreatitis Ruptured Abdominal Aortic Aneurysm (Aaa) (Hcc) Dic (Disseminated Intravascular Coagulation) (Hcc) Hemorrhagic Shock (Hcc) Acute Respiratory Failure (Hcc) Cardiac Arrest (Hcc) Hypernatremia Hypokalemia Hypomagnesemia Hypophosphatemia Hyperchloremia Encephalopathy Aaa (Abdominal Aortic Aneurysm, Ruptured) (Hcc) PAST MEDICAL HISTORY Diagnosis Date - DIC (disseminated intravascular coagulation) (H[facility]) 01/12/2018 PAST SURGICAL HISTORY Procedure Laterality Date - LAP CHOLECYSTECT/CHOLANGIOGRAPHY 05-28-09 - REPAIR UMBILICAL NATAN,5+Y/O,REDUC 05-28-09 Social History Marital status: Spouse name: Shelly Years of education: 11 Number of children: 4 Occupational History 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 BP 103/64 Pulse 102 Temp (Src) 98.2 (Axillary) Resp 18 Ht 5' 8 (1.73m) Wt 176 lb 9.4 oz (80.1kg) SpO2 99% BMI 26.86 kg/(m2). Temp (24hrs), Av.2 ?C (97.1 ?F), Min:34.5 ?C (94.1 ?F), Max:36.8 ?C (98.2 ?F) NET FLUID BALANCE Intake/Output Summary (Last 24 hours) at 01/14/18 1418 Last data filed at 01/14/18 1137 Gross per 24 hour Intake 9393.5 ml Output 4439 ml Net 4954.5 ml MEDICATIONS Current Facility-Administered Medications: heparin 5,000 Units injection 5,000 Units SUBCUTANEOUS q 12 H propofol infusion (DIPRIVAN) 5-60 mcg/kg/min INTRAVENOUS CONTINUOUS ampicillin-sulbactam 3 g in NaCl 0.9% 100 mL MB+ (UNASYN) 3 g INTRAVENOUS q 6 H NaCl 0.9% 1,000 mL iv bolus 1,000 mL INTRAVENOUS PRN DIALYSIS prismaSOL BGK 4 K / 2.5 mEq Ca/Liter 5,000 mL 5,000 mL HEMODIALYSIS continuous (no dispense) prismaSOL BGK 4 K / 2.5 mEq Ca/Liter 5,000 mL 5,000 mL HEMODIALYSIS continuous (no dispense) prismaSOL BGK 4 K / 2.5 mEq Ca/Liter 5,000 mL 5,000 mL HEMODIALYSIS continuous (no dispense) NaCl 0.45% iv infusion 200 mL/hr INTRAVENOUS CONTINUOUS dextrose 40 % 15 g 15 g ORAL PRN Or glucagon 1 mg injection (GLUCAGEN) 1 mg INTRAMUSCULAR PRN Or dextrose 50% in water 25 mL syringe 12.5 g INTRAVENOUS PRN magnesium sulfate 1 g in D5W 100 mL 1 g INTRAVENOUS PRN magnesium sulfate in water 2 g in sterile water 50 ml 2 g INTRAVENOUS PRN fentaNYL 20 mcg/mL iv infusion in NaCl 0.9% 100 mL 25-150 mcg/hr INTRAVENOUS CONTINUOUS pantoprazole 40 mg injection (PROTONIX) 40 mg INTRAVENOUS DAILY (6 AM) NORepinephrine 16 mg in D5W 250 mL (LEVOPHED) 0.6-40 mcg/min INTRAVENOUS CONTINUOUS Chlorhexidine Gluconate 0.12 % 15 mL (PERIDEX) 15 mL ORAL q 12 H perflutren lipid microspheres 1.1 mg/mL 1.3 mL injection (DEFINITY) 1.3 mL INTRAVENOUS PRN(NO DISPENSE) Lines, Drains, and Airways Line Arterial Line 01/12/18 0238 Arterial Line Left Brachial 2 days Central Line Double Lumen 01/12/18 0239 Right Neck 2 days Dialysis / Apheresis Double Lumen 01/13/18 1136 Left Neck 1 day Drain Drain/Tube 01/12/18 0100 Hemovac Midline Anterior Abdomen 2 days Drain/Tube 01/12/18 Fecal Management System 2 days GI Feed/Drain 01/12/18 0100 2 days Indwelling Urinary Catheter 01/12/18 1108 Assessment Temperature Monitoring 16 Fr 2 days Airway Airway Endotracheal Tube 01/12/18 1138 2 days PHYSICAL EXAM PERFORMED: Cardiovascular: Regular rhythm Respiratory: Reduced breath sounds bilat %FIO2 Min: 60 Max: 90 Abdomen: Wound vac in place Draining sanguinous drainage Extremities: Edema- Yes Generalized edema Neurologic: Sedated Respiratory/Nursing Documentation: O2 Therapy: Ventilator (01/14/18 1200) Invasive Ventilator Mode: Pressure Regulated Volume Control (01/14/181136) Set Ventilator Respiratory Rate (BPM): 18 (01/14/18 113) Total Respiratory Rate (BPM): 18 (01/14/18 113) Tidal Volume Set (mL): 500 (01/14/181136) Exhaled Tidal Volume (mL): 503 (01/14/18 113) Minute Volume (L): 9.1 (01/14/18 113) Peak Inspiratory Pressure (cm H2O): 24 (01/14/18 113) PEEP/CPAP (cm H2O): 8 (01/14/181136) HEMODYNAMIC DATA: Reviewed NUTRITION: Enteral Feeds: No NPO DATA: Diagnostic tests reviewed for today's visit, films/specimens were personally reviewed by me: Most recent labs and imaging results. LABS: Recent Labs 01/14/18119901/14/18 044 WBC 7.65 9.62* RBC 3.85* 4.32* HB 11.1* 12.1* HCT 32.5* 36.5* MCV 84.4 84.5 PLT 61* 59* GLUC 74 85 BUN 19* 21* CREAT 2.36* 2.38* NA 143 142 K 4.5 4.7 CHLOR 112* 110* CO2 22 24 CA 6.5* 6.9* PTSEC 15.0* 14.9* APTT 48.7* 42.7* INR 1.48 1.48 MG -- 1.9 ABG: Recent Labs 01/14/18 1200 01/14/18 0440 01/13/18 2215 PH 7.395 7.400 7.359 PO2 112.3* 87.3 104.2* PCO2 34.0* 37.4 42.0 Assessment/Plan IMPRESSION: Critical Care Documentation: The patient has the following organ/system impairment(s): Acute blood loss and Respiratory failure (with Hypoxemia) 77 yo male with H/O AAA was transferred from [place] in shock 2/2 ruptured AAA s/p cardiac arrest with CPR and ROSC and s/p abdominal washout, repacking and repair of serosal tears x 2 1. Hemorrhagic shock currently on Levophed at 40 mcg-massive transfusion protocol-patient has had 1l bolus of LR 2.Acute hypoxic respiratory failure/pulmonary edema on CXR. -continue Unasyn 3. SVT with HR 180min-adenosine 6mg With minimal improvement- Amiodarone 150mg bolus followed by continuous infusion at 1 mg/min 4. ATN on CVVH-urine only 10ml/hr-creatinine 2.36 5. Continuous EEG in progress 6. Hgb every 6 hrs-monitor closely-Hgb at 12N 11.1 This patient has a high probability of sudden, clinically significant deterioration, which requires the highest level of physician preparedness to intervene urgently. I managed/supervised life or organ supporting interventions that required frequent physician assessment. I devoted my full attention to the direct care of this patient for the amount of time indicated below. Time I spent with family or surrogate(s) is included only if the patient was incapable of providing the necessary information or participating in medical decision making. Time devoted to teaching is not included. Discussed with staff/patient/family Time spent providing critical care services: 40 minutes excluding procedures. SIGNATURE: Paulo Lovelace APRN.MAINTENANCE TEAM MEMBER PATIENT NAME: Naveen Akins DATE: January 14, 2018 TIME: 2:18 PM Gilbert Tucker MD 01/14/2018 3:49 PM Signed Card Consult Dictated Job [id number] 1.SVT in pt with AAA rupture, s/p arrest on NURSE'S ASSISTANT, pressors; Echo EF 55%-SVT related to meds, [place] -On IV Amio -now sinus tach will follow Thanks Gilbert Tucker MD Pager [phone] Jose Jasso, RN, RN 01/14/2018 4:21 PM Signed 1540. Noted spontaneous incease in hr to 180's. Dr. degroot in room 6mg of Adenosine ivp followed by amnio 150mg bolus and drip started at 1mg for 6hrs Anupam Juárez MD 01/14/2018 6:39 PM Signed POST ANESTHESIA EVALUATION NOTE SERVICE DATE: 01/14/2018 SERVICE TIME: 6:38 PM : 1940 Vitals: 01/14/18 1045 01/14/18 1130 01/14/18 1300 01/14/18 1800 Temp: 36.5 ?C (97.7 ?F) 36.8 ?C (98.2 ?F) 36.4 ?C (97.5 ?F) 36.5 ?C (97.7 ?F) 01/14/18 1745 01/14/18 1800 01/14/18 18101/14/18 1830 Arterial BP 1: 99/52 109/57 116/54 115/57 BP: 102/55 119/65 124/69 127/79 01/14/18 1745 01/14/18 1800 01/14/18 1815 01/14/18 1830 Pulse: 106 104 108 105 01/14/18 1745 01/14/18 1800 01/14/18 1815 01/14/18 1830 Resp: 01/14/18 1745 01/14/18 1800 01/14/18 1815 01/14/18 1830 SpO2: 98% 100% 98% 99% Validated Vital Signs: Yes POST ANES STATUS: PACU/ICU Patient Condition: Unstable on vasopressors Neurological Status: Awake AND alert. Pulmonary Status: On invasive mechanical ventilation. Airway Control: Intubated on mechanical ventilation. Cardiovascular Status: Unstable On vasopressor and On inotropes Pain: Adequately controlled Postoperative Nausea/Vomiting: No significant post operative nausea or vomiting Postoperative Hydration Status: Being fluid resuscitated. Anesthetic Complications: None Recommendation: Continue current plan of care and Further care per PACU/ICU/Floor team Other Remarks: SIGNATURE: Anupam Juárez MD PATIENT NAME: Naveen Akins DATE: January 14, 2018 TIME: 6:38 PM PAGER/CONTACT #: Venkat Paniagua MD 01/22/2018 7:14 PM Signed [facility] - Operative Report SURGEON: Venkat Paniagua MD PATIENT NAME: NAVEEN AKINS [facility]: [id number] DATE OF SURGERY: 01/14/2018 DATE OF : 1940 SEX/AGE: M/77 PATIENT TYPE: I HOSP SVC: LICO LOCATION: [id number] DATE OF SURGERY: 01/14/2018 SURGEON: Venkat Paniagua MD The patient is an inpatient. PREOPERATIVE DIAGNOSIS: Status post ruptured abdominal aortic aneurysm with ABThera device in place. POSTOPERATIVE DIAGNOSIS: Status post ruptured abdominal aortic aneurysm with ABThera device in place. PROCEDURE: Removal of packing from retroperitoneum, intraabdominal irrigation, examination of the retroperitoneum and bowel, and replacement of ABThera device. VISUAL ARTS TEACHER: WILLIE Alvarez. ANESTHESIA: General. HISTORY: This is a patient who underwent exploration and repair of an abdominal aortic aneurysm rupture approximately 48 hours ago. He had to go back to surgery for coagulopathic bleeding and the retroperitoneum had to be packed with lap sponges to control this. He is brought back today for changing his ABThera device and in addition removal of the packs and assessment for both bowel viability as well as ongoing bleeding. Risks and benefits of this procedure were explained to the patient's family. PROCEDURE IN DETAIL: With the patient in supine position under adequate general anesthesia, the previous ABThera device was prepped into the sterile field. We draped the patient, and once sterile drapes were applied, the ABThera device was removed. We used saline to irrigate the abdomen and found minimal evidence of any type of bleeding in the superficial tissues. We then the bowel and reflected it superiorly finding the small bowel to all appear completely viable with no evidence of any ischemia. We then investigated the pelvis to evaluate the left colon, which there was some question of viability as the patient had been having bowel movements. However, the left colon and rectosigmoid appeared to be grossly viable with pink bowel and no evidence of ischemia of the transmural nature. With this being the case, we now irrigated further with saline to free up any mild adhesions that might be present and then reflected the abdominal contents superiorly and laterally. We then opened the retroperitoneum and opened the sac, but it had been closed over the packs in the retroperitoneum. We removed each of the 3 packs separately and individually inspected each area, the proximal anastomosis, the iliac anastomoses, and then the deep pelvis packing, which had to be placed secondary to the amount of blood that had dissected there from the aneurysm rupture. With removal of each of these, inspection for hemostasis was noted and there did not appear to be any active bleeding. At this point, we replaced hemostatic material in the pelvis over the distal anastomosis and over the proximal anastomosis, and once the hemostatic agent had been applied, we then allowed the aneurysm sac to fall back down and cover over the retroperitoneum. Now, the bowel was allowed to fall back into normal position. There was still incredible tension and swelling of the bowel and, therefore, it was felt that we could not close the abdomen at this time and decision was made to replace the ABThera device. A new ABThera device was brought on the field and cut to the appropriate size and placed appropriately to suction. With this being the case, the patient tolerated the procedure well with the exception of a brief bout of supraventricular tachycardia, which was controlled with beta blockade by the Anesthesia Service. The patient was now returned to the critical care unit in stable but critical condition. Venkat Paniagua MD Vascular Surgery DENA:mika /[id number] DOWNTIME NOTE 01/15/2018 5:12 AM Signed [facility] Scheduled Downtime: 01/15/2018 1:05:00 AM to 01/15/2018 4:56:36 AM Dionicio Stevens MD 01/15/2018 8:11 AM Signed Vascular Surgery Progress Note SERVICE DATE: 01/15/2018 Vascular AND Thoracic Surgery Service Pager: For questions or concerns Tue-Tue 6a-5p please page [phone]. After 5pm and on Weekends and Holidays, please page [phone] if in ICU or [phone] if on RNF. Subjective SUBJECTIVE: SVT requiring Amio drip Diet: DIET NPO Objective OBJECTIVE: Vitals: Temp (24hrs), Av.3 ?C (97.3 ?F), Min:34.5 ?C (94.1 ?F), Max:36.8 ?C (98.2 ?F) BP (!) 85/45 Pulse 96 Temp 36.8 ?C (98.2 ?F) (Axillary) Resp 18 Ht 172.7 cm (5' 8) Wt 80.1 kg (176 lb 9.4 oz) SpO2 99% BMI 26.85 kg/m? O2 Therapy: Ventilator IANDO: Date 01/14/18 07 - 01/15/1865801/15/18699 - 01/16/18 0659 Shift 6858-3631 9265-8369 4365-6627 24 Hour Total 7607-7492 4642-0603 2015-1015 24 Hour Total I N T A K E IV 3000 4013 670.5 7683.5 NS 0.9% 3000 3000 NS .45% 1850 1850 Magnesium IVPB 100 100 LR 1000 1000 Fentanyl Volume 122.5 22.5 145 Amiodarone 267 51 318 NORepinephrine Volume 313.5 387 700.5 Propofol IV 160 60 220 MAGNESIUM SULFATE 50 50 Ampicillin/Sulbactam (Unasyn) IV 200 100 300 Shift Total 3000 4013 670.5 7683.5 O U T P U T Urine 80 70 9 159 Tube Output ( Indwelling Urinary Catheter 01/12/18 1108 Assessment Temperature Monitoring 16 Fr) 80 70 9 159 Drains 1000 1000 2000 Negative Pressure: Output (mL) (Negative Pressure Wound Therapy 01/12/18 0749 Abdomen) 1000 1000 2000 Tubes 9961 772 3433 3955 Drain/Tube Output (Drain/Tube 01/12/18 0100 Hemovac Midline Anterior Abdomen) 500 1125 1625 Drain/Tube Output (Drain/Tube 01/12/18 Fecal Management System) 250 30 0 280 Output (GI Feed/Drain 01/12/18 0100) 1100 588 876 3602 Dialysis 0 924 2623 3547 Dialysis Output (Ultrafiltration) 0 924 2623 3547 Shift Total 2430 2874 4357 9661 Weight (kg) 80.1 80.1 80.1 80.1 80.1 80.1 80.1 80.1 MEDICATIONS Current Facility-Administered Medications: sodium phosphate 30 mmol in D5W 250 mL 30 mmol INTRAVENOUS ONCE sodium phosphate 30 mmol in D5W 250 mL 30 mmol INTRAVENOUS ONCE amiodarone 360 mg in D5W 200 mL (NEXTERONE) 0.5-1 mg/min INTRAVENOUS CONTINUOUS heparin 5,000 Units injection 5,000 Units SUBCUTANEOUS q 12 H propofol infusion (DIPRIVAN) 5-60 mcg/kg/min INTRAVENOUS CONTINUOUS ampicillin-sulbactam 3 g in NaCl 0.9% 100 mL MB+ (UNASYN) 3 g INTRAVENOUS q 6 H NaCl 0.9% 1,000 mL iv bolus 1,000 mL INTRAVENOUS PRN DIALYSIS prismaSOL BGK 4 K / 2.5 mEq Ca/Liter 5,000 mL 5,000 mL HEMODIALYSIS continuous (no dispense) prismaSOL BGK 4 K / 2.5 mEq Ca/Liter 5,000 mL 5,000 mL HEMODIALYSIS continuous (no dispense) prismaSOL BGK 4 K / 2.5 mEq Ca/Liter 5,000 mL 5,000 mL HEMODIALYSIS continuous (no dispense) NaCl 0.45% iv infusion 200 mL/hr INTRAVENOUS CONTINUOUS dextrose 40 % 15 g 15 g ORAL PRN Or glucagon 1 mg injection (GLUCAGEN) 1 mg INTRAMUSCULAR PRN Or dextrose 50% in water 25 mL syringe 12.5 g INTRAVENOUS PRN magnesium sulfate 1 g in D5W 100 mL 1 g INTRAVENOUS PRN magnesium sulfate in water 2 g in sterile water 50 ml 2 g INTRAVENOUS PRN fentaNYL 20 mcg/mL iv infusion in NaCl 0.9% 100 mL 25-150 mcg/hr INTRAVENOUS CONTINUOUS pantoprazole 40 mg injection (PROTONIX) 40 mg INTRAVENOUS DAILY (6 AM) NORepinephrine 16 mg in D5W 250 mL (LEVOPHED) 0.6-40 mcg/min INTRAVENOUS CONTINUOUS Chlorhexidine Gluconate 0.12 % 15 mL (PERIDEX) 15 mL ORAL q 12 H Labs: Recent Labs 01/15/18 0430 01/15/18 0400 01/14/18 2210 01/14/18 1555 01/14/18 0440 NA -- 137 138 142 < > 142 K -- 4.3 4.6 4.5 < > 4.7 CHLOR -- 105 107 111* < > 110* CO2 -- 21 23 22 < > 24 BUN -- 16 16 17 < > 21* CREAT -- 2.10* 2.11* 2.10* < > 2.38* GLUC -- 112* 98 78 < > 85 ANION -- 15 13 14 < > 13 CA -- 6.4* 6.9* 6.4* < > 6.9* MG -- 2.3 -- -- -- 1.9 P -- 1.9* -- -- -- 3.1 ALB -- -- -- 1.7* -- -- AST -- -- -- 69* -- -- ALT -- -- -- 13 -- -- ALKPHOS -- -- -- 67 -- -- TBILI -- -- -- 2.9* -- -- WBC 11.17* -- 10.36* -- < > 9.62* HB 12.7* -- 12.4* -- < > 12.1* HCT 37.2* -- 36.8* -- < > 36.5* PLT 60* -- 62* -- < > 59* LACT -- 1.7 1.9 2.4* < > 2.4* INR -- -- 1.23 1.31 < > 1.48 PH -- 7.407 7.385 7.316* < > 7.400 PCO2 -- 33.6* 34.7* 42.8 < > 37.4 PO2 -- 79.4* 150.4* 72.8* < > 87.3 BE -- -3.3 -4.0 -4.6 < > -1.8 < > = values in this interval not displayed. Exam: GENERAL: No distress NEURO: sedated, not following HEENT: normocephalic, atraumatic LUNGS: Unlabored breathing O2 Therapy: Ventilator CARDIAC: Sinus tachy on Amio, Hypotension requiring Levo 35mcg/min ABDOMEN: Soft, mild D, aTTP, no PS, Vac w SS output EXTREMITIES: MAK, No deformities, + edema SKIN: Skin color, texture, turgor normal, No rashes or lesions ASSESSMENT AND PLAN: Active Hospital Problems Diagnosis Date Noted - Ruptured abdominal aortic aneurysm (AAA) ([facility]) 01/12/2018 - Encephalopathy 01/13/2018 - DIC (disseminated intravascular coagulation) ([facility]) 01/12/2018 - Hemorrhagic shock ([facility]) 01/12/2018 - Acute respiratory failure ([facility]) 01/12/2018 - Cardiac arrest ([facility]) 01/12/2018 - Hypernatremia 01/12/2018 - Hypokalemia 01/12/2018 - Hypomagnesemia 01/12/2018 - Hypophosphatemia 01/12/2018 - Hyperchloremia 01/12/2018 - AAA (abdominal aortic aneurysm, ruptured) ([facility]) 01/12/2018 Overview Note: Added automatically from request for surgery [id number] 77 year old male with Ruptured AAA s/p Emergent Repair, takeback washout, repair of serosal tears x2, on 01/12, hemorrhagic shock, acute resp failure with pulm edema, TERENCE, SVT, s/p Third Look Laparotomy and washout on 01/14 ? - Vent mgmt per MICU - NPO/IVF - Consider TPN - Wean Levo as able - Acute blood loss and dilutional anemia and thrombocytopenia - monitor, transfuse prn - q6 labs - Cont Abthera VAC - TERENCE --> CVVHD running even per Nephro - CXR with bilateral infiltrates (R>L), improving by my read - Unasyn empirically, BCx neg x2 day and RCx neg x1d - Hypophos - replacing - 01/13 Echo LVEF 55-60%, mild LVH - Amio per Cards for SVT ? Assessment and plan discussed with attending: Dr. Cox SIGNATURE: Dionicio Stevens MD PATIENT NAME: Naveen Akins DATE: January 15, 2018 TIME: 6:29 AM Vascular AND Thoracic Surgery Service Pager: For questions or concerns Mon-Tue 6a-5p please page [phone]. After 5pm and on Weekends and Holidays, please page [phone] if in ICU or [phone] if on RNF. Kannan Felder MD 01/15/2018 9:22 AM Attested Attestation signed by Mark Woods at 01/16/2018 11:25 AM Care per vasc gen surg available to asisst with closure if needed Mark Woods MD PROGRESS NOTE EGS Surgery Progress Note Emergency General Surgery Service Pager: For questions or concerns Mon-Fri 6a-5p please page [phone]. After 5pm and on Weekends and Holidays, please page [phone] if in ICU or [phone] if on RNF. SERVICE DATE: 01/15/2018 SERVICE TIME: 9:18 AM SUBJECTIVE: Subjective Subjective: This is a 77 year old male Pt on amio drip, norepi drip, and propofol this am. Minimally responsive. Wound vac in place. S/p take back to or 01/14/18 Bowel movement No Flatus No Diet DIET NPO Ambulating No Nausea No Emesis No Current Facility-Administered Medications: sodium phosphate 30 mmol in D5W 250 mL 30 mmol INTRAVENOUS ONCE amiodarone 360 mg in D5W 200 mL (NEXTERONE) 0.5-1 mg/min INTRAVENOUS CONTINUOUS heparin 5,000 Units injection 5,000 Units SUBCUTANEOUS q 12 H propofol infusion (DIPRIVAN) 5-60 mcg/kg/min INTRAVENOUS CONTINUOUS ampicillin-sulbactam 3 g in NaCl 0.9% 100 mL MB+ (UNASYN) 3 g INTRAVENOUS q 6 H NaCl 0.9% 1,000 mL iv bolus 1,000 mL INTRAVENOUS PRN DIALYSIS prismaSOL BGK 4 K / 2.5 mEq Ca/Liter 5,000 mL 5,000 mL HEMODIALYSIS continuous (no dispense) prismaSOL BGK 4 K / 2.5 mEq Ca/Liter 5,000 mL 5,000 mL HEMODIALYSIS continuous (no dispense) prismaSOL BGK 4 K / 2.5 mEq Ca/Liter 5,000 mL 5,000 mL HEMODIALYSIS continuous (no dispense) NaCl 0.45% iv infusion 200 mL/hr INTRAVENOUS CONTINUOUS dextrose 40 % 15 g 15 g ORAL PRN Or glucagon 1 mg injection (GLUCAGEN) 1 mg INTRAMUSCULAR PRN Or dextrose 50% in water 25 mL syringe 12.5 g INTRAVENOUS PRN magnesium sulfate 1 g in D5W 100 mL 1 g INTRAVENOUS PRN magnesium sulfate in water 2 g in sterile water 50 ml 2 g INTRAVENOUS PRN fentaNYL 20 mcg/mL iv infusion in NaCl 0.9% 100 mL 25-150 mcg/hr INTRAVENOUS CONTINUOUS pantoprazole 40 mg injection (PROTONIX) 40 mg INTRAVENOUS DAILY (6 AM) NORepinephrine 16 mg in D5W 250 mL (LEVOPHED) 0.6-40 mcg/min INTRAVENOUS CONTINUOUS Chlorhexidine Gluconate 0.12 % 15 mL (PERIDEX) 15 mL ORAL q 12 H OBJECTIVE: Objective PHYSICAL EXAM: VITAL SIGNS BP 100/57 Pulse 102 Temp (Src) 98.2 (Axillary) Resp 18 Ht 5' 8 (1.73m) Wt 230 lb 13.2 oz (104.7kg) SpO2 97% BMI 35.10 kg/(m2). Temp (24hrs), Av.2 ?C (97.2 ?F), Min:34.5 ?C (94.1 ?F), Max:36.8 ?C (98.2 ?F) Date 01/14/18 07 - 01/15/18 0659 01/15/18 0700 - 01/16/18 0659 Shift 4368-6277 3734-1263 8392-3426 24 Hour Total 1139-6019 2180-6932 0340-3001 24 Hour Total I N T A K E IV 3000 4013 2154.4 9167.4 850 850 NS 0.9% 3000 3000 NS .45% 1850 1000 2850 410 410 Magnesium IVPB 100 100 LR 1000 1000 Fentanyl Volume 122.5 60 182.5 184 184 Amiodarone 267 134.9 401.9 34 34 NORepinephrine Volume 313.5 549.2 862.7 67 67 Potassium Phosphate 115 115 Propofol IV 160 160.3 320.3 40 40 MAGNESIUM SULFATE 50 50 Ampicillin/Sulbactam (Unasyn) IV 200 200 400 Shift Total 3000 4013 2154.4 9167.4 850 850 O U T P U T Urine 80 70 9 159 2 2 Tube Output ( Indwelling Urinary Catheter 01/12/18 1108 Assessment Temperature Monitoring 16 Fr) 80 70 9 159 2 2 Drains 1000 1000 2000 Negative Pressure: Output (mL) (Negative Pressure Wound Therapy 01/12/18 0749 Abdomen) 1000 1000 2000 Tubes 0883 870 8340 3955 75 75 Drain/Tube Output (Drain/Tube 01/12/18 0100 Hemovac Midline Anterior Abdomen) 500 1125 1625 75 75 Drain/Tube Output (Drain/Tube 01/12/18 Fecal Management System) 250 30 0 280 0 0 Output (GI Feed/Drain 01/12/18 0100) 1100 525 913 7877 0 0 Dialysis 0 924 2623 3547 477 477 Dialysis Output (Ultrafiltration) 0 924 2623 3547 477 477 Shift Total 2430 2874 4357 9669 374 554 Weight (kg) 80.1 80.1 80.1 80.1 104.7 104.7 104.7 104.7 GENERAL: intubated. Minimally responsive. SKIN: Skin color, texture, turgor normal. No rashes or lesions. LUNGS: Unlabored breathing on O2 Therapy: Ventilator on sating at SpO2: 97 % CARDIAC: rate and rhythm as above, ABDOMEN: Soft, No masses, hepatosplenomegaly, No lymphadenopathy and wound vac in place. Open abdomen EXTREMITIES: Deferred WOUND: large wound vac, open abdomen. DATA: Diagnostic tests reviewed for today's visit: Recent Labs 01/15/18 0400 01/14/18 2210 01/14/18 1555 PH 7.407 7.385 7.316* PCO2 33.6* 34.7* 42.8 PO2 79.4* 150.4* 72.8* BE -3.3 -4.0 -4.6 Recent Labs 01/15/18 0745 01/15/18 0430 01/15/18 0400 01/14/18 2210 01/14/18 1555 01/14/18 1550 01/14/18 1200 01/14/18 0440 01/13/18 0615 01/13/18 0455 01/12/18 1140 CREAT -- -- 2.10* 2.11* 2.10* -- 2.36* 2.38* < > -- 2.15* < > 1.18* BUN -- -- 16 16 17 -- 19* 21* < > -- 24* < > 17 NA -- -- 137 138 142 -- 143 142 < > -- 152* < > 156* K -- -- 4.3 4.6 4.5 -- 4.5 4.7 < > -- 5.3* < > 2.9* CHLOR -- -- 105 107 111* -- 112* 110* < > -- 118* < > 121* CO2 -- -- 21 23 22 -- 22 24 < > -- 23 < > 26 ANION -- -- 15 13 14 -- 14 13 < > -- 16 < > 12 GLUC -- -- 112* 98 78 -- 74 85 < > -- 91 < > 122* CA -- -- 6.4* 6.9* 6.4* -- 6.5* 6.9* < > -- 6.7* < > 8.1* P -- -- 1.9* -- -- -- -- 3.1 -- -- 4.8 -- -- MG -- -- 2.3 -- -- -- -- 1.9 -- 1.3* -- -- 1.4* ALB -- -- -- -- 1.7* -- -- -- -- -- -- -- -- AST -- -- -- -- 69* -- -- -- -- -- -- -- -- ALT -- -- -- -- 13 -- -- -- -- -- -- -- -- ALKPHOS -- -- -- -- 67 -- -- -- -- -- -- -- -- TBILI -- -- -- -- 2.9* -- -- -- -- -- -- -- -- WBC -- 11.17* -- 10.36* -- 10.80* 7.65 9.62* < > -- 9.99* < > 4.68 HB -- 12.7* -- 12.4* -- 12.3* 11.1* 12.1* < > -- 11.4* < > 13.0* HCT -- 37.2* -- 36.8* -- 37.2* 32.5* 36.5* < > -- 33.0* < > 38.4* PLT -- 60* -- 62* -- 71* 61* 59* < > -- 68* < > 79* LACT -- -- 1.7 1.9 2.4* -- 1.9 2.4* < > -- 6.4* < > -- INR 1.18 -- -- 1.23 1.31 -- 1.48 1.48 < > -- 1.43 < > 1.29 < > = values in this interval not displayed. ASSESSMENT AND PLAN: Active Hospital Problems Diagnosis Date Noted - Ruptured abdominal aortic aneurysm (AAA) ([facility]) 01/12/2018 - Encephalopathy 01/13/2018 - DIC (disseminated intravascular coagulation) ([facility]) 01/12/2018 - Hemorrhagic shock ([facility]) 01/12/2018 - Acute respiratory failure ([facility]) 01/12/2018 - Cardiac arrest ([facility]) 01/12/2018 - Hypernatremia 01/12/2018 - Hypokalemia 01/12/2018 - Hypomagnesemia 01/12/2018 - Hypophosphatemia 01/12/2018 - Hyperchloremia 01/12/2018 - AAA (abdominal aortic aneurysm, ruptured) ([facility]) 01/12/2018 Overview Note: Added automatically from request for surgery [id number] Assessment/Plan with Ruptured AAA s/p Emergent Repair, takeback washout, repair of serosal tears x2, on 01/12, hemorrhagic shock, acute resp failure with pulm edema, TERENCE, OR 01/14 for take back + washout ? - Vent mgmt per MICU - NPO/IVF - Wean Levo as able - q6 labs - Cont Abthera VAC - TERENCE -->?CVVHD per Nephro - Unasyn empirically, BCx ng@2 and rcx ng@ 1 - amiodrip for svt - continuous EEG for concern for seizure like activity. SIGNATURE: Kannan Felder MD PATIENT NAME: Naveen Akins DATE: January 15, 2018 TIME: 9:18 AM PAGER: [phone] Elder Granda MD 01/15/2018 10:06 AM Signed ICU - PROGRESS NOTE SERVICE DATE: 01/15/2018 SERVICE TIME: 9:44 AM Admission Date: 01/12/2018 AGE: [age] year old LOS: 3 days Subjective REASON FOR ICU ADMISSION: AAA rupture s/p repair ROS not possible 2/2 to mental status. Per RN patient is on 35 of levo and still has drainage in the wound vac. Objective VITAL SIGNS (last 24hrs min/max): Temp Av.6 ?C (97.9 ?F) Min: 36.4 ?C (97.5 ?F) Max: 36.8 ?C (98.2 ?F) Pulse Av.6 Min: 96 Max: 176 Arterial BP 1 Min: 83/48 Max: 145/65 Cuff BP Min: 85/45 Max: 144/66 Pain Score: 0/10 Vital signs reviewed. BP 100/57 Pulse 102 Temp (Src) 98.2 (Axillary) Resp 18 Ht 5' 8 (1.73m) Wt 230 lb 13.2 oz (104.7kg) SpO2 97% BMI 35.10 kg/(m2). Temp (24hrs), Av.6 ?C (97.9 ?F), Min:36.4 ?C (97.5 ?F), Max:36.8 ?C (98.2 ?F) NET FLUID BALANCE Intake/Output Summary (Last 24 hours) at 01/15/18 0944 Last data filed at 01/15/18 0900 Gross per 24 hour Intake 7017.4 ml Output 8285 ml Net -1267.6 ml MEDICATIONS Current Facility-Administered Medications: sodium phosphate 30 mmol in D5W 250 mL 30 mmol INTRAVENOUS ONCE amiodarone 360 mg in D5W 200 mL (NEXTERONE) 0.5-1 mg/min INTRAVENOUS CONTINUOUS heparin 5,000 Units injection 5,000 Units SUBCUTANEOUS q 12 H propofol infusion (DIPRIVAN) 5-60 mcg/kg/min INTRAVENOUS CONTINUOUS ampicillin-sulbactam 3 g in NaCl 0.9% 100 mL MB+ (UNASYN) 3 g INTRAVENOUS q 6 H NaCl 0.9% 1,000 mL iv bolus 1,000 mL INTRAVENOUS PRN DIALYSIS prismaSOL BGK 4 K / 2.5 mEq Ca/Liter 5,000 mL 5,000 mL HEMODIALYSIS continuous (no dispense) prismaSOL BGK 4 K / 2.5 mEq Ca/Liter 5,000 mL 5,000 mL HEMODIALYSIS continuous (no dispense) prismaSOL BGK 4 K / 2.5 mEq Ca/Liter 5,000 mL 5,000 mL HEMODIALYSIS continuous (no dispense) NaCl 0.45% iv infusion 200 mL/hr INTRAVENOUS CONTINUOUS dextrose 40 % 15 g 15 g ORAL PRN Or glucagon 1 mg injection (GLUCAGEN) 1 mg INTRAMUSCULAR PRN Or dextrose 50% in water 25 mL syringe 12.5 g INTRAVENOUS PRN magnesium sulfate 1 g in D5W 100 mL 1 g INTRAVENOUS PRN magnesium sulfate in water 2 g in sterile water 50 ml 2 g INTRAVENOUS PRN fentaNYL 20 mcg/mL iv infusion in NaCl 0.9% 100 mL 25-150 mcg/hr INTRAVENOUS CONTINUOUS pantoprazole 40 mg injection (PROTONIX) 40 mg INTRAVENOUS DAILY (6 AM) NORepinephrine 16 mg in D5W 250 mL (LEVOPHED) 0.6-40 mcg/min INTRAVENOUS CONTINUOUS Chlorhexidine Gluconate 0.12 % 15 mL (PERIDEX) 15 mL ORAL q 12 H Lines, Drains, and Airways Line Arterial Line 01/12/18 0238 Arterial Line Left Brachial 3 days Central Line Double Lumen 01/12/18 0239 Right Neck 3 days Dialysis / Apheresis Double Lumen 01/13/18 1136 Left Neck 1 day Drain Drain/Tube 01/12/18 0100 Hemovac Midline Anterior Abdomen 3 days Drain/Tube 01/12/18 Fecal Management System 3 days GI Feed/Drain 01/12/18 0100 3 days Indwelling Urinary Catheter 01/12/18 1108 Assessment Temperature Monitoring 16 Fr 2 days Airway Airway Endotracheal Tube 01/12/18 1138 2 days PHYSICAL EXAM PERFORMED: Constitutional: Lying in bed, appears comfortable Cardiovascular: Regular rhythm Respiratory: Breath sounds equal b/l %FIO2 Min: 30 Max: 70 Abdomen: Open with foam dressing and wound vac in place Extremities: Edema- Yes, Peripheral pulses present Neurologic: Sedated Respiratory/Nursing Documentation: O2 Therapy: Ventilator (01/15/18 0800) Invasive Ventilator Mode: Pressure Regulated Volume Control (01/15/18 07) Set Ventilator Respiratory Rate (BPM): 18 (01/15/1840) Total Respiratory Rate (BPM): 18 (01/15/18 0740) Tidal Volume Set (mL): 500 (01/15/18 0740) Exhaled Tidal Volume (mL): 502 (01/15/18 0740) Minute Volume (L): 9.1 (01/15/18 0740) Peak Inspiratory Pressure (cm H2O): 22 (01/15/18 0740) PEEP/CPAP (cm H2O): 5 (01/15/18 0740) HEMODYNAMIC DATA: Reviewed NUTRITION: Enteral Feeds: No NPO DATA: Diagnostic tests reviewed for today's visit, films/specimens were personally reviewed by me: Most recent labs and imaging results. LABS: Recent Labs 01/15/18 0745 01/15/18 0430 01/15/18 0400 01/14/18 2210 01/14/18 1555 TROPI -- -- -- -- 0.228* WBC -- 11.17* -- 10.36* -- RBC -- 4.44* -- 4.35* -- HB -- 12.7* -- 12.4* -- HCT -- 37.2* -- 36.8* -- MCV -- 83.8 -- 84.6 -- PLT -- 60* -- 62* -- GLUC -- -- 112* 98 78 BUN -- -- 16 16 17 CREAT -- -- 2.10* 2.11* 2.10* NA -- -- 137 138 142 K -- -- 4.3 4.6 4.5 CHLOR -- -- 105 107 111* CO2 -- -- 21 23 22 TPROT -- -- -- -- 3.7* ALB -- -- -- -- 1.7* CA -- -- 6.4* 6.9* 6.4* ALKPHOS -- -- -- -- 67 TBILI -- -- -- -- 2.9* AST -- -- -- -- 69* ALT -- -- -- -- 13 PTSEC 12.2* -- -- 13.1* 13.4* APTT -- -- -- 37.6* 38.6* INR 1.18 -- -- 1.23 1.31 MG -- -- 2.3 -- -- ABG: Recent Labs 01/15/18 0400 01/14/18 2210 01/14/18 1555 PH 7.407 7.385 7.316* PO2 79.4* 150.4* 72.8* PCO2 33.6* 34.7* 42.8 Assessment/Plan IMPRESSION: Critical Care Documentation: The patient has the following organ/system impairment(s): Circulatory shock, Complex life-threatening medical problem(s) and Respiratory failure (Acute, with Hypoxemia) 77 year old male with PMH of AAA who was transferred to [facility] in shock 2/2 ruptured AAA c/b cardiac arrest s/p CPR and ROSC and s/p abdominal washout, repacking and repair of serosal tears x2. Hemorrhagic shock, currently on?pressors. Serosanguinous output in wound vac. Received multiple units of pRBC, platelets, cryo, FFP as part of massive transfusion protocol. IV fluids maintenance and bolus ongoing. Acute hypoxic respiratory failure 2/2 pulmonary edema in the setting of massive transfusion. Intubated and mechanically ventilated. Tracheal aspirate shows no growth. Fio2 titrated down. SVT s/p adenosine and amiodarone Acute blood loss anemia, Hb stable overnight ATN on CVVH PLAN: Continue mechanical ventilation, hemodynamics and open abdomen preclude SAT/SBT Continue IV fluids, pressors to a MAP goal of 65. Target net even. CVVH per nephro D/c Unasyn, Cx negative Wound Vac and AAA recs per vascular ICU PPx This patient has a high probability of sudden, clinically significant deterioration, which requires the highest level of physician preparedness to intervene urgently. I managed/supervised life or organ supporting interventions that required frequent physician assessment. I devoted my full attention to the direct care of this patient for the amount of time indicated below. Time I spent with family or surrogate(s) is included only if the patient was incapable of providing the necessary information or participating in medical decision making. Time devoted to teaching is not included. Discussed with staff Time spent providing critical care services: 35 minutes excluding procedures. SIGNATURE: Elder Granda MD PATIENT NAME: Naveen Akins DATE: January 15, 2018 TIME: 9:44 AM Gilbert Tucker MD 01/15/2018 10:40 AM Signed PROGRESS NOTE CARDIOLOGY SERVICE SERVICE DATE: 01/15/2018 SERVICE TIME: 10:39 AM Subjective INTERIM HISTORY: on vent Objective PHYSICAL EXAM: Body mass index is 35.1 kg/m?. O2 Therapy: Ventilator No Data Recorded Patient Vitals for the past 24 hrs: BP Temp Temp src Pulse Resp SpO2 Weight 01/15/18 1000 94/65 - - 98 18 97 % - 01/15/18 0900 100/57 - - 102 18 97 % - 01/15/18 0800 95/65 - - 108 19 96 % - 01/15/18 0744 - - - - - - 104.7 kg (230 lb 13.2 oz) 01/15/18 0740 - - - 107 18 99 % - 01/15/18 0700 91/56 - - 101 18 99 % - 01/15/18 0630 94/58 - - 100 18 99 % - 01/15/18 0615 (!) 85/45 - - 96 18 99 % - 01/15/18 0600 88/56 - - 107 18 99 % - 01/15/18 0530 95/60 - - 99 18 99 % - 01/15/18 0500 95/61 - - 99 18 98 % - 01/15/18 0430 110/63 - - 98 16 98 % - 01/15/18 0400 104/64 - - 101 18 98 % - 01/15/18 0330 106/62 - - 103 18 99 % - 01/15/18 0304 - - - 103 - - - 01/15/18 0300 102/65 - - 103 18 99 % - 01/15/18 0230 99/66 - - 112 18 99 % - 01/15/18 0200 101/63 - - - - - - 01/15/18 0130 - - - 102 18 100 % - 01/15/18 0100 91/63 - - - - - - 01/15/18 0057 89/64 - - 102 18 99 % - 01/15/18 0000 105/67 36.8 ?C (98.2 ?F) Axillary 103 18 99 % - 01/14/18 2313 - - - 100 18 100 % - 01/14/18 2300 113/63 - - 100 15 100 % - 01/14/18 2200 97/63 - - 101 18 100 % - 01/14/18 2100 104/67 - - 101 18 100 % - 01/14/18 2000 117/71 - - 103 18 100 % - 01/14/18 1900 116/61 - - 102 19 99 % - 01/14/18 1830 127/79 - - 105 18 99 % - 01/14/18 1815 124/69 - - 108 18 98 % - 01/14/18 1800 119/65 36.5 ?C (97.7 ?F) Axillary 104 18 100 % - 01/14/18 1745 102/55 - - 106 18 98 % - 01/14/18 1730 101/54 - - 108 18 98 % - 01/14/18 1715 107/51 - - 109 18 97 % - 01/14/18 1700 110/56 - - 110 18 97 % - 01/14/18 1645 112/53 - - 112 18 97 % - 01/14/18 1630 118/66 - - 113 18 97 % - 01/14/18 1615 128/52 - - 115 17 96 % - 01/14/18 1600 125/65 - - 115 15 94 % - 01/14/18 1545 129/62 - - 114 11 95 % - 01/14/18 1540 - - - 115 10 95 % - 01/14/18 1530 (!) 124/44 - - (!) 135 11 96 % - 01/14/18 1515 103/51 - - 110 18 98 % - 01/14/18 1500 108/50 - - 114 15 96 % - 01/14/18 1445 116/59 - - (!) 149 18 98 % - 01/14/18 1430 102/51 - - (!) 176 18 100 % - 01/14/18 1415 (!) 94/46 - - (!) 133 18 100 % - 01/14/18 1400 114/57 - - 109 18 100 % - 01/14/18 1345 130/65 - - 107 18 100 % - 01/14/18 1330 115/61 - - 106 18 100 % - 01/14/18 1315 113/62 - - 105 18 100 % - 01/14/18 1300 144/66 36.4 ?C (97.5 ?F) Axillary 101 18 100 % - 01/14/18 1245 107/60 - - 102 18 99 % - 01/14/18 1215 103/64 - - 102 18 99 % - 01/14/18 1200 104/61 - - 103 18 98 % - 01/14/18 1145 104/62 - - 104 18 96 % - 01/14/18 1137 - - - 105 18 98 % - 01/14/18 1130 144/65 36.8 ?C (98.2 ?F) Axillary 102 18 99 % - 01/14/18 1115 106/64 - - 101 18 100 % - 01/14/18 1100 118/68 - - 100 18 100 % - 01/14/18 1045 124/61 36.5 ?C (97.7 ?F) Axillary 101 18 100 % - On vent Tele sinus tach MEDICATIONS: Current hospital medications: sodium phosphate 30 mmol in D5W 250 mL 30 mmol INTRAVENOUS ONCE amiodarone 360 mg in D5W 200 mL (NEXTERONE) 0.5-1 mg/min INTRAVENOUS CONTINUOUS heparin 5,000 Units injection 5,000 Units SUBCUTANEOUS q 12 H propofol infusion (DIPRIVAN) 5-60 mcg/kg/min INTRAVENOUS CONTINUOUS ampicillin-sulbactam 3 g in NaCl 0.9% 100 mL MB+ (UNASYN) 3 g INTRAVENOUS q 6 H NaCl 0.9% 1,000 mL iv bolus 1,000 mL INTRAVENOUS PRN DIALYSIS prismaSOL BGK 4 K / 2.5 mEq Ca/Liter 5,000 mL 5,000 mL HEMODIALYSIS continuous (no dispense) prismaSOL BGK 4 K / 2.5 mEq Ca/Liter 5,000 mL 5,000 mL HEMODIALYSIS continuous (no dispense) prismaSOL BGK 4 K / 2.5 mEq Ca/Liter 5,000 mL 5,000 mL HEMODIALYSIS continuous (no dispense) NaCl 0.45% iv infusion 200 mL/hr INTRAVENOUS CONTINUOUS dextrose 40 % 15 g 15 g ORAL PRN glucagon 1 mg injection (GLUCAGEN) 1 mg INTRAMUSCULAR PRN dextrose 50% in water 25 mL syringe 12.5 g INTRAVENOUS PRN magnesium sulfate 1 g in D5W 100 mL 1 g INTRAVENOUS PRN magnesium sulfate in water 2 g in sterile water 50 ml 2 g INTRAVENOUS PRN fentaNYL 20 mcg/mL iv infusion in NaCl 0.9% 100 mL 25-150 mcg/hr INTRAVENOUS CONTINUOUS pantoprazole 40 mg injection (PROTONIX) 40 mg INTRAVENOUS DAILY (6 AM) NORepinephrine 16 mg in D5W 250 mL (LEVOPHED) 0.6-40 mcg/min INTRAVENOUS CONTINUOUS Chlorhexidine Gluconate 0.12 % 15 mL (PERIDEX) 15 mL ORAL q 12 H DATA: Past 72 Hour Labs: Recent Labs 01/15/18 0745 01/15/18 0430 01/15/18 0400 01/14/18 2210 01/14/18 1555 TROPI -- -- -- -- 0.228* WBC -- 11.17* -- 10.36* -- RBC -- 4.44* -- 4.35* -- HB -- 12.7* -- 12.4* -- HCT -- 37.2* -- 36.8* -- MCV -- 83.8 -- 84.6 -- MCH -- 28.6 -- 28.5 -- MCHC -- 34.1 -- 33.7 -- PLT -- 60* -- 62* -- MPV -- 10.9 -- 10.9 -- GLUC -- -- 112* 98 78 BUN -- -- 16 16 17 CREAT -- -- 2.10* 2.11* 2.10* NA -- -- 137 138 142 K -- -- 4.3 4.6 4.5 CHLOR -- -- 105 107 111* CO2 -- -- 21 23 22 TPROT -- -- -- -- 3.7* ALB -- -- -- -- 1.7* CA -- -- 6.4* 6.9* 6.4* ALKPHOS -- -- -- -- 67 TBILI -- -- -- -- 2.9* AST -- -- -- -- 69* ALT -- -- -- -- 13 PTSEC 12.2* -- -- 13.1* 13.4* APTT -- -- -- 37.6* 38.6* INR 1.18 -- -- 1.23 1.31 MG -- -- 2.3 -- -- Last Lab Drawn: No results found for this basename: TSH,PROBNP,TG,HDL,LDL,CHOL Assessment/Plan 1.SVT in pt with AAA rupture, s/p arrest on NURSE'S ASSISTANT, pressors; Echo EF 55%-SVT related to meds, [place] -On IV Amio-no recurrence thus far -now sinus tach -no recommendations ? SIGNATURE: Gilbert Tucker MD PATIENT NAME: Naveen Akins DATE: January 15, 2018 TIME: 10:39 AM PAGER/CONTACT #: [phone] Iza Arguelles, RN, RN 01/15/2018 11:[address] Stevens updated on patient's libiale blood pressure and the need to increase levophed drip. New orders received, will continue to monitor Dionicio Stevens MD 01/15/2018 11:49 AM Signed Vascular Surgery CVP down to 4 Increased Levo requirments Plan: - 1L Bolus LR - 25g 5% Albumin - CVVHD running positive now - transfuse a 5-pk platelets - NaPhos IV 45mEq - Calc Gluc IV 4g - recheck labs Dionicio Stevens MD PGY-4 Pager: [phone] 01/15/2018, 11:48 AM Iza Arguelles, RN, RN 01/15/2018 1:24 PM Signed Demi Cee updated on patient's need for increased Fi02; page out to Dr. Stevens also Araceli Elam, RN, RN 01/15/2018 3:19 PM Signed CRRT CHANGED OUT DUE TO INCREASING PRESSURES. BLOOD RETUNED TO PT AND CRRT RESTARTED AT 3PM. M100 ALL PUMPS AT 700 ALL BAGS 4K/2.5CA. LIJ WITH BFR AT 200. REPORT TO WAI Lovelace, ACADEMIC ADMINISTRATOR.MAINTENANCE TEAM MEMBER 01/15/2018 3:33 PM Signed Abdomen appears more distended than approx 11AM this morning. Significant scrotal edema observed as well. Check stat CBCD. Ana Granda and Rodney notified. Renate Handy DO 01/15/2018 3:48 PM Signed NEPHROLOGY PROGRESS NOTE SERVICE DATE: 01/14/2018 SERVICE TIME: 10:08 AM Subjective INTERVAL HISTORY: F/u TERENCE/ATN seen on CRRT Pt on Levophed and amiodarone drip. Also with increase O2 requirement on vent today MEDICATIONS: Current hospital medications: sodium phosphate 45 mmol in D5W 250 mL 45 mmol INTRAVENOUS ONCE NaCl 0.9% iv infusion 200 mL/hr INTRAVENOUS CONTINUOUS amiodarone 360 mg in D5W 200 mL (NEXTERONE) 0.5-1 mg/min INTRAVENOUS CONTINUOUS heparin 5,000 Units injection 5,000 Units SUBCUTANEOUS q 12 H propofol infusion (DIPRIVAN) 5-60 mcg/kg/min INTRAVENOUS CONTINUOUS ampicillin-sulbactam 3 g in NaCl 0.9% 100 mL MB+ (UNASYN) 3 g INTRAVENOUS q 6 H NaCl 0.9% 1,000 mL iv bolus 1,000 mL INTRAVENOUS PRN DIALYSIS prismaSOL BGK 4 K / 2.5 mEq Ca/Liter 5,000 mL 5,000 mL HEMODIALYSIS continuous (no dispense) prismaSOL BGK 4 K / 2.5 mEq Ca/Liter 5,000 mL 5,000 mL HEMODIALYSIS continuous (no dispense) prismaSOL BGK 4 K / 2.5 mEq Ca/Liter 5,000 mL 5,000 mL HEMODIALYSIS continuous (no dispense) dextrose 40 % 15 g 15 g ORAL PRN glucagon 1 mg injection (GLUCAGEN) 1 mg INTRAMUSCULAR PRN dextrose 50% in water 25 mL syringe 12.5 g INTRAVENOUS PRN magnesium sulfate 1 g in D5W 100 mL 1 g INTRAVENOUS PRN magnesium sulfate in water 2 g in sterile water 50 ml 2 g INTRAVENOUS PRN fentaNYL 20 mcg/mL iv infusion in NaCl 0.9% 100 mL 25-150 mcg/hr INTRAVENOUS CONTINUOUS pantoprazole 40 mg injection (PROTONIX) 40 mg INTRAVENOUS DAILY (6 AM) NORepinephrine 16 mg in D5W 250 mL (LEVOPHED) 0.6-40 mcg/min INTRAVENOUS CONTINUOUS Chlorhexidine Gluconate 0.12 % 15 mL (PERIDEX) 15 mL ORAL q 12 H Vital Signs; Patient Vitals for the past 24 hrs: BP Temp Temp src Pulse Resp SpO2 01/14/18 0731 - - - 115 18 98 % 01/14/18 0700 - - - (!) 123 16 97 % 01/14/18 0600 - - - 119 18 96 % 01/14/18 0500 - - - 116 18 97 % 01/14/18 0412 - - - - 18 - 01/14/18 0400 - - - 118 18 98 % 01/14/18 0300 - - - (!) 121 18 97 % 01/14/18 0200 - - - (!) 122 18 97 % 01/14/18 0100 - - - (!) 121 17 97 % 01/14/18 0000 - - - (!) 122 14 97 % 01/13/18 2306 - - - 119 18 99 % 01/13/18 2300 - - - 119 18 99 % 01/13/18 2200 - - - 120 17 99 % 01/13/18 2100 - - - (!) 165 17 98 % 01/13/18 2012 - - - 113 18 96 % 01/13/18 2000 - - - 115 18 95 % 01/13/18 1948 - - - 116 17 96 % 01/13/18 1900 - - - 115 18 96 % 01/13/18 1856 112/58 36.2 ?C (97.2 ?F) Axillary 114 18 97 % 01/13/18 1845 - - - 117 18 97 % 01/13/18 1830 - - - 115 18 90 % 01/13/18 1815 - - - 113 18 92 % 01/13/18 1800 - - - 113 18 92 % 01/13/18 1745 - - - 111 17 93 % 01/13/18 1730 - - - 109 15 93 % 01/13/18 1715 - - - 107 18 95 % 01/13/18 1700 - - - 109 18 96 % 01/13/18 1645 - - - 111 18 95 % 01/13/18 1630 - - - 111 18 95 % 01/13/18 1615 - - - 109 18 94 % 01/13/18 1600 - - - 111 17 94 % 01/13/18 1545 - - - 107 18 94 % 01/13/18 1530 - - - 103 18 94 % 01/13/18 1515 - - - 117 18 97 % 01/13/18 1500 - - - 117 18 96 % 01/13/18 1445 - - - 114 18 95 % 01/13/18 1430 - - - 104 18 97 % 01/13/18 1425 - 36.2 ?C (97.2 ?F) Axillary 104 18 95 % 01/13/18 1415 - 36.4 ?C (97.5 ?F) Axillary 104 18 96 % 01/13/18 1400 - - - 105 18 96 % 01/13/18 1345 - - - 107 18 95 % 01/13/18 1330 - - - 108 18 94 % 01/13/18 1315 - - - 111 18 95 % 01/13/18 1300 - 36 ?C (96.8 ?F) Axillary 113 18 96 % 01/13/18 1245 - - - 111 19 97 % 01/13/18 1234 - - - 113 - 94 % 01/13/18 1230 - - - 110 18 90 % 01/13/18 1215 - - - 107 18 95 % 01/13/18 1200 - 36 ?C (96.8 ?F) Axillary 106 18 95 % 01/13/18 1145 - - - 106 18 95 % 01/13/18 1130 - - - 109 18 94 % 01/13/18 1115 - - - 109 18 94 % 01/13/18 1100 - - - 108 18 95 % 01/13/18 1045 - - - 107 18 95 % 01/13/18 1030 - - - 108 18 94 % 01/13/18 1015 - - - 102 18 96 % Current wt: Last 1 Encounter Wt Readings: Date: Wt: 01/12/2018 80.1 kg (176 lb 9.4 oz) Objective PHYSICAL EXAM: General: Sedated. On mechanical ventilator. HEENT: Atraumatic, normocephalic, Intubated. Chest: Coarse BS bilaterally. Cardiac: S1 S2 RR, no murmurs, gallops or rubs Abdomen: Wound vac in place. Abdomen is soft. Neuro: Sedated, No FND. SKIN: No rashes, good skin turgor. Extremities: No edema. ? ? Labs: Recent Labs 01/15/18 1000 01/15/18 0430 01/15/18 0400 01/14/18 2210 01/14/18 1555 01/14/18 1550 01/14/18 1200 01/14/18 0440 01/13/18 0615 01/13/18 0455 CREAT 1.93* -- 2.10* 2.11* 2.10* -- 2.36* 2.38* < > -- 2.15* BUN 14 -- 16 16 17 -- 19* 21* < > -- 24* NA 135* -- 137 138 142 -- 143 142 < > -- 152* K 4.1 -- 4.3 4.6 4.5 -- 4.5 4.7 < > -- 5.3* CHLOR 104 -- 105 107 111* -- 112* 110* < > -- 118* CO2 20* -- 21 23 22 -- 22 24 < > -- 23 ANION 15 -- 15 13 14 -- 14 13 < > -- 16 GLUC 134* -- 112* 98 78 -- 74 85 < > -- 91 CA 6.3* -- 6.4* 6.9* 6.4* -- 6.5* 6.9* < > -- 6.7* P 3.4 -- 1.9* -- -- -- -- 3.1 -- -- 4.8 MG -- -- 2.3 -- -- -- -- 1.9 -- 1.3* -- ALB -- -- -- -- 1.7* -- -- -- -- -- -- WBC 11.75* 11.17* -- 10.36* -- 10.80* 7.65 9.62* < > -- 9.99* HB 12.2* 12.7* -- 12.4* -- 12.3* 11.1* 12.1* < > -- 11.4* HCT 36.0* 37.2* -- 36.8* -- 37.2* 32.5* 36.5* < > -- 33.0* PLT 55* 60* -- 62* -- 71* 61* 59* < > -- 68* < > = values in this interval not displayed. Recent Labs 01/15/18 1530 01/15/18 1000 01/15/18 0400 01/14/18 2210 01/14/18 1555 01/14/18 1200 PH 7.323* 7.427 7.407 7.385 7.316* 7.395 PCO2 45.4 30.7* 33.6* 34.7* 42.8 34.0* PO2 74.8* 78.6* 79.4* 150.4* 72.8* 112.3* LACT -- 1.5 1.7 1.9 2.4* 1.9 Assessment/Plan 1. Acute kidney injury on chronic kidney disease stage 3. Baseline SCr is 1.36 mg/dL on 11/14/17. CKD is likely due to nephrosclerosis related to PAD. TERENCE is 2/2 ischemic ATN from hemorrhagic shock. Pt is anuric with increased pressor requirement -cont CVVHDF -run even -monitor lytles q8 hrs while on CRRT, lytes reviewed ? 2. Shock. Likely hemorrhagic shock-massive blood loss from ruptured AAA. Currently requiring pressor. Ongoing volume resuscitation. Running even with CRRT ? 3. Hypernatremia. Corrected 4. Hyperkalemia-resolved on CRRT ? 5. Ruptured AAA. s/p repair 01/12/18. Management as per vascular surgery. ? 6. Acute hypoxic respiratory failure. Ventilator dependent. Vent management as per . Worsening hypoxia today ? ? Thank you for allowing me to participate in care of Naveen Akins. Please do not hesitate to contact me at [phone] with any concerns SIGNATURE: Renate Handy DO PATIENT NAME: Naveen Akins DATE: January 14, 2018 TIME: 10:08 AM PAGER/CONTACT #: Dionicio Stevens MD 01/15/2018 4:06 PM Signed Vascular Surgery Patient seen and evaluated for abdominal distention per Nurse's report. 01/15/18 1530 01/15/18 1545 01/15/18 1600 01/15/18 1604 BP: 141/65 Pulse: 97 97 97 (P) 98 Resp: 18 18 18 (P) 18 Temp: 37 ?C (98.6 ?F) 37 ?C (98.6 ?F) 37 ?C (98.6 ?F) TempSrc: Temporal Artery Temporal Artery SpO2: 94% 95% 95% (P) 94% Weight: Height: NAD +Anasarca Mild Sinus Tachy on Amio drip, SBP 130s with MAP 80 on 37 mcg/min of Levo (unchanged for several hrs) Vent requirement decreasing now on 60% FiO2 from 100% earlier, HOB now more elevated No acute resp distress, peak pressures 19-21 Abdomen S, Mild-Mod Distended, mildly TTP, no PS, Abthera intact with light SS output. Scrotal and penile edema, soft, reducible with palpation, no signs of ischemia Extremities warm with palpable distal pulses I am not concerned with patient's exam at this time. Appears to be stable. Abdominal distention without significant change, patient just now sitting up more with an open abdomen. Continue scrotal support. Consider urologic eval if genital edema becomes more firm or develops signs of ischemia or skin breakdown. Patient not able to be diuresed yet and is still requiring fluid resuscitation with continued third spacing and fluid losses via VAC. Rpt labs pending Will follow closely Dionicio Stevens MD PGY-4 Pager: [phone] 01/15/2018, 4:05 PM Chente Whittaker MD 01/15/2018 10:31 PM Signed MICU - PROGRESS NOTE SERVICE DATE: 01/15/2018 SERVICE TIME: 7:28 PM Admission Date: 01/12/2018 Subjective Patient remains critically ill, intubated on mechanical ventilation. Remains in circulatory shock on pressors. Reviewed daytime documentation and discussed overnight events with RN. PMH: PAST MEDICAL HISTORY Diagnosis Date - DIC (disseminated intravascular coagulation) (HCC) 01/12/2018 PSH: PAST SURGICAL HISTORY Procedure Laterality Date - LAP CHOLECYSTECT/CHOLANGIOGRAPHY 05-28-09 - REPAIR UMBILICAL NATAN,5+Y/O,REDUC 05-28-09 FH: FAMILY HISTORY Problem Relation Age of Onset - Coronary Artery Disease Father - None Mother SOCIAL HISTORY: Social History Substance Use Topics - Smoking status: Never Smoker - Smokeless tobacco: Not on file - Alcohol use No OUTPATIENT MEDICATIONS: Prior to Admission Medications: Prescriptions Prior to Admission: metoprolol succinate(TOPROL XL 50 MG 24 HR TAB) Take one(1) tablet daily. Disp: Rfl: 0 01/11/2018 ASPIRIN 325 MG TAB Take one(1) tablet daily. Disp: Rfl: 0 01/11/2018 triamterene/hydrochlorothiazid(DYAZIDE 37.5 MG-25 MG CAP) take one half (1/2) tablet daily Disp: Rfl: 0 01/11/2018 LIPITOR 10 MG TAB Take one(1) tablet daily. Disp: Rfl: 0 01/11/2018 INPATIENT MEDICATIONS: Current hospital medications: NaCl 0.9% iv infusion 200 mL/hr INTRAVENOUS CONTINUOUS amiodarone 360 mg in D5W 200 mL (NEXTERONE) 0.5-1 mg/min INTRAVENOUS CONTINUOUS heparin 5,000 Units injection 5,000 Units SUBCUTANEOUS q 12 H propofol infusion (DIPRIVAN) 5-60 mcg/kg/min INTRAVENOUS CONTINUOUS ampicillin-sulbactam 3 g in NaCl 0.9% 100 mL MB+ (UNASYN) 3 g INTRAVENOUS q 6 H NaCl 0.9% 1,000 mL iv bolus 1,000 mL INTRAVENOUS PRN DIALYSIS prismaSOL BGK 4 K / 2.5 mEq Ca/Liter 5,000 mL 5,000 mL HEMODIALYSIS continuous (no dispense) prismaSOL BGK 4 K / 2.5 mEq Ca/Liter 5,000 mL 5,000 mL HEMODIALYSIS continuous (no dispense) prismaSOL BGK 4 K / 2.5 mEq Ca/Liter 5,000 mL 5,000 mL HEMODIALYSIS continuous (no dispense) dextrose 40 % 15 g 15 g ORAL PRN glucagon 1 mg injection (GLUCAGEN) 1 mg INTRAMUSCULAR PRN dextrose 50% in water 25 mL syringe 12.5 g INTRAVENOUS PRN magnesium sulfate 1 g in D5W 100 mL 1 g INTRAVENOUS PRN magnesium sulfate in water 2 g in sterile water 50 ml 2 g INTRAVENOUS PRN fentaNYL 20 mcg/mL iv infusion in NaCl 0.9% 100 mL 25-150 mcg/hr INTRAVENOUS CONTINUOUS pantoprazole 40 mg injection (PROTONIX) 40 mg INTRAVENOUS DAILY (6 AM) NORepinephrine 16 mg in D5W 250 mL (LEVOPHED) 0.6-40 mcg/min INTRAVENOUS CONTINUOUS Chlorhexidine Gluconate 0.12 % 15 mL (PERIDEX) 15 mL ORAL q 12 H ALLERGIES: ALLERGIES No Known Allergies Objective VITAL SIGNS (last 24hrs min/max): BP 99/52 Pulse 93 Temp 36.5 ?C (97.7 ?F) Resp 18 Ht 172.7 cm (5' 8) Wt 104.7 kg (230 lb 13.2 oz) SpO2 98% BMI 35.10 kg/m? Respiratory/Nursing Documentation: O2 Therapy: Ventilator (01/15/182037) Invasive Ventilator Mode: Pressure Regulated Volume Control (01/15/182037) Set Ventilator Respiratory Rate (BPM): 18 (01/15/182037) Total Respiratory Rate (BPM): 18 (01/15/182037) Tidal Volume Set (mL): 500 (01/15/182037) Exhaled Tidal Volume (mL): 481 (01/15/182037) Minute Volume (L): 9 (01/15/182037) Peak Inspiratory Pressure (cm H2O): 22 (01/15/182037) PEEP/CPAP (cm H2O): 5 (01/15/182037) PHYSICAL EXAM PERFORMED: General: intubated, sedated on MV Resp: diminished, coarse mechanical BS b/l, + ETT in place CV: tachycardic,RR, no MGR noted Abd: post-operative abdomen w/ wound vac in place, distended, but soft to compression Ext: warm to touch, no cyanosis Neuro: sedated,non-responsive to physical and verbal stimuli NET FLUID BALANCE Intake/Output Summary (Last 24 hours) at 01/15/18 2227 Last data filed at 01/15/18 2100 Gross per 24 hour Intake 8140.4 ml Output 35308 ml Net -2018.6 ml DATA: I personally reviewed all imaging and laboratory data below. LABS: Hemoglobin (g/dL) Date Value 11/14/2017 15.0 HGB (g/dL) Date Value 01/15/2018 11.0 Hematocrit (%) Date Value 01/15/2018 32.4 WBC (thou/cmm) Date Value 01/15/2018 10.70 Platelet Count (thou/cmm) Date Value 01/15/2018 51 Glucose (mg/dL) Date Value 01/15/2018 121 Potassium (mEq/L) Date Value 01/15/2018 4.3 Sodium (mEq/L) Date Value 01/15/2018 136 Chloride (mEq/L) Date Value 01/15/2018 104 CO2 (mEq/L) Date Value 01/15/2018 24 Creatinine (mg/dL) Date Value 01/15/2018 1.89 BUN (mg/dL) Date Value 01/15/2018 14 Anion Gap (no units) Date Value 01/15/2018 12 Calcium (mg/dL) Date Value 01/15/2018 6.8 IMAGING CXR 01/13: IMPRESSION: ? Recent placement of central venous catheter without apparent complication. Stable ?appearance of heart and lungs. CXR 01/15: IMPRESSION: ? No significant interval change running support lines or catheters as described. ? Little interval change regarding findings compatible with diffuse pulmonary edema as well as layering of moderate to large bilateral pleural effusions with associated atelectasis versus consolidation of the bilateral mid and lower lung zones. ? TTE 01/13: LVEF 55% L pleural effusion No gross valvular abnormalities EEG 01/13: There is also evidence of a severe diffuse encephalopathy. No epileptiform discharges or EEG seizures were recorded. Assessment PROBLEMS: - Ruptured AAA s/p surgical repair - s/p Cardiac Arrest - Persistent Circulatory Shock - Acute Hypoxic Respiratory Failure on mechanical ventilation - Encephalopathy - Multifactorial ? - TREENCE on CKD - Suspected ATN - On CVVH - Lactic Acidosis - Resolved - Sinus Tachycardia - Thrombocytopenia - SVT - Resolved - MMP ? PLANS FOR TODAY: - Continue mechanical ventilation, adjust as needed - Wean pressors as tolerated, goal MAP > 65mmHg - Cultures negative, remains on unasyn empirically. Continue to monitor - IVF resuscitation as needed, recommend discontinuation of fluids and give on prn basis. Personally called vascular surgery tonight about stricter fluid administration. Patient appears markedly volume overloaded and may be third spacing in abdomen. Obtain bladder pressure - EEG impressive for severe encephalopathy, no evidence of epileptiform activity/seizures - CVVH as per nephrology - AAA management/post-operative care per vascular surgery. - Continue w/ amiodarone gtt, monitor rhythm. No further runs of SVT - Cardiology consulted, appreciate recs - SCDs/PPI/ Heparin SQ per primary team ? Critical Care Documentation: The patient has the following organ/system impairment(s): Circulatory shock, Complex life-threatening medical problem(s) and Respiratory failure (Acute, with Hypoxemia) This patient has a high probability of sudden, clinically significant deterioration, which requires the highest level of physician preparedness to intervene urgently. I managed/supervised life or organ supporting interventions that required frequent physician assessment. I devoted my full attention to the direct care of this patient for the amount of time indicated below. Time I spent with family or surrogate(s) is included only if the patient was incapable of providing the necessary information or participating in medical decision making. Time devoted to teaching is not included. Critical Care Time devoted to this patient is 35 minutes SIGNATURE: Chente Whittaker MD PATIENT NAME: Naveen Akins DATE: January 15, 2018 TIME: 10:31 PM Dionicio Stevens MD 01/16/2018 9:08 AM Attested Attestation signed by Venkat Paniagua at 01/22/2018 6:30 PM I saw and evaluated the patient. Discussed with the resident and agree with resident's findings and plan as documented in the resident's note. I discussed the case at length with the patient's family both pre-and postoperatively expressing the ongoing need to get his abdomen closed however at this point in time he still seems way too distended to do this. We're going to do a washout and replacement of the abscess therapy device tonight with again a check of his bowel viability as long as the bowel is viable and listened to the wound VAC pack in place the plan would then be to go ahead and diurese the patient with his continuous venous hemodialysis and see if we can get several liters of fluid off to decrease the bowel swelling. Vascular Surgery Progress Note SERVICE DATE: 01/16/2018 Vascular AND Thoracic Surgery Service Pager: For questions or concerns Mon-Fri 6a-5p please page [phone]. After 5pm and on Weekends and Holidays, please page [phone] if in ICU or [phone] if on RNF. Subjective SUBJECTIVE: Weaning down on Levo, decreasing VAC output Diet: DIET NPO Objective OBJECTIVE: Vitals: Temp (24hrs), Av.7 ?C (98 ?F), Min:36.1 ?C (97 ?F), Max:37 ?C (98.6 ?F) BP 101/53 Pulse 82 Temp 36.1 ?C (97 ?F) (Temporal Artery) Resp 18 Ht 172.7 cm (5' 8) Wt 104.7 kg (230 lb 13.2 oz) SpO2 100% BMI 35.10 kg/m? O2 Therapy: Ventilator IANDO: Date 01/15/18699 - 01/16/18 0601/16/18699 - 01/17/18 0659 Shift 4039-3375 8722-4658 3114-7212 24 Hour Total 3786-4245 5284-3844 3836-3701 24 Hour Total I N T A K E IV 3825 2387 2106 8318 IVPB 90 350 440 NS 0.9% 355 1280 1385 3020 NS .45% 851 851 LR 936 936 Calcium IVPB 92 122 214 Fentanyl Volume 217 53 59 329 Amiodarone 116 117 132 365 NORepinephrine Volume 231 238 215 684 Potassium Phosphate 326 99 425 Propofol IV 111 100 115 326 ALBUMIN (mL) 500 500 Ampicillin/Sulbactam (Unasyn) IV 28 200 228 Irrigants 10 60 70 Irrigant/Flush Amount In ( Indwelling Urinary Catheter 01/12/18 1108 Assessment Temperature Monitoring 16 Fr) 10 10 Irrigant/Flush Amount In (Drain/Tube 01/12/18 Fecal Management System) 60 60 Shift Total 3835 2447 2106 8388 O U T P U T Urine 2 8 81 91 Tube Output ( Indwelling Urinary Catheter 01/12/18 1108 Assessment Temperature Monitoring 16 Fr) 2 8 81 91 Tubes 807 469 8954 2675 Drain/Tube Output (Drain/Tube 01/12/18 0100 Hemovac Midline Anterior Abdomen) 983 700 0814 2575 Drain/Tube Output (Drain/Tube 01/12/18 Fecal Management System) 0 0 0 0 Output (GI Feed/Drain 01/12/18 0100) 100 0 0 100 Dialysis 2083 2424 2629 7136 Dialysis Output (Ultrafiltration) 2083 2424 2629 7136 Shift Total 2865 3277 3760 9902 Weight (kg) 104.7 104.7 104.7 104.7 104.7 104.7 104.7 104.7 MEDICATIONS Current Facility-Administered Medications: calcium gluconate 4 g in NaCl 0.9% 250 mL 4 g INTRAVENOUS ONCE sodium phosphate 45 mmol in D5W 250 mL 45 mmol INTRAVENOUS ONCE NaCl 0.9% iv infusion 200 mL/hr INTRAVENOUS CONTINUOUS amiodarone 360 mg in D5W 200 mL (NEXTERONE) 0.5-1 mg/min INTRAVENOUS CONTINUOUS heparin 5,000 Units injection 5,000 Units SUBCUTANEOUS q 12 H propofol infusion (DIPRIVAN) 5-60 mcg/kg/min INTRAVENOUS CONTINUOUS ampicillin-sulbactam 3 g in NaCl 0.9% 100 mL MB+ (UNASYN) 3 g INTRAVENOUS q 6 H NaCl 0.9% 1,000 mL iv bolus 1,000 mL INTRAVENOUS PRN DIALYSIS prismaSOL BGK 4 K / 2.5 mEq Ca/Liter 5,000 mL 5,000 mL HEMODIALYSIS continuous (no dispense) prismaSOL BGK 4 K / 2.5 mEq Ca/Liter 5,000 mL 5,000 mL HEMODIALYSIS continuous (no dispense) prismaSOL BGK 4 K / 2.5 mEq Ca/Liter 5,000 mL 5,000 mL HEMODIALYSIS continuous (no dispense) dextrose 40 % 15 g 15 g ORAL PRN Or glucagon 1 mg injection (GLUCAGEN) 1 mg INTRAMUSCULAR PRN Or dextrose 50% in water 25 mL syringe 12.5 g INTRAVENOUS PRN magnesium sulfate 1 g in D5W 100 mL 1 g INTRAVENOUS PRN magnesium sulfate in water 2 g in sterile water 50 ml 2 g INTRAVENOUS PRN fentaNYL 20 mcg/mL iv infusion in NaCl 0.9% 100 mL 25-150 mcg/hr INTRAVENOUS CONTINUOUS pantoprazole 40 mg injection (PROTONIX) 40 mg INTRAVENOUS DAILY (6 AM) NORepinephrine 16 mg in D5W 250 mL (LEVOPHED) 0.6-40 mcg/min INTRAVENOUS CONTINUOUS Chlorhexidine Gluconate 0.12 % 15 mL (PERIDEX) 15 mL ORAL q 12 H Labs: Recent Labs 01/16/18 0430 01/15/18 2219 01/15/18 2205 01/15/18 1530 01/15/18 1000 01/15/18 0745 01/15/18 0400 01/14/18 1555 NA 137 -- -- 136 135* -- -- 137 < > 142 K 3.9 -- -- 4.3 4.1 -- -- 4.3 < > 4.5 CHLOR 105 -- -- 104 104 -- -- 105 < > 111* CO2 23 -- -- 24 20* -- -- 21 < > 22 BUN 11 -- -- 14 14 -- -- 16 < > 17 CREAT 1.75* -- -- 1.89* 1.93* -- -- 2.10* < > 2.10* GLUC -- -- -- 121* 134* -- -- 112* < > 78 ANION 13 -- -- 12 15 -- -- 15 < > 14 CA 6.7* -- -- 6.8* 6.3* -- -- 6.4* < > 6.4* MG 2.2 -- -- -- -- -- -- 2.3 -- -- P 2.5 -- -- -- 3.4 -- -- 1.9* -- -- ALB -- -- -- -- -- -- -- -- -- 1.7* AST -- -- -- -- -- -- -- -- -- 69* ALT -- -- -- -- -- -- -- -- -- 13 ALKPHOS -- -- -- -- -- -- -- -- -- 67 TBILI -- -- -- -- -- -- -- -- -- 2.9* WBC 10.93* 12.73* -- 10.70* 11.75* -- < > -- < > -- HB 11.2* 11.6* -- 11.0* 12.2* -- < > -- < > -- HCT 32.2* 33.9* -- 32.4* 36.0* -- < > -- < > -- PLT 56* 66* -- 51* 55* -- < > -- < > -- LACT -- -- -- -- 1.5 -- -- 1.7 < > 2.4* INR -- -- -- -- 1.22 1.18 -- -- < > 1.31 PH 7.397 -- 7.333* 7.323* 7.427 -- -- 7.407 < > 7.316* PCO2 35.2* -- 42.8 45.4 30.7* -- -- 33.6* < > 42.8 PO2 108.6* -- 89.1 74.8* 78.6* -- -- 79.4* < > 72.8* BE -3.0 -- -3.6 -3.0 -3.8 -- -- -3.3 < > -4.6 < > = values in this interval not displayed. Exam: GENERAL: No distress, NEURO: sedated/intubated, not following commands HEENT: normocephalic, atraumatic LUNGS: Unlabored breathing O2 Therapy: Ventilator CARDIAC: Regular rate and rhythm as above ABDOMEN: Soft, mildly D, NT, VAC intact with SS output EXTREMITIES: MAK, No deformities, +Anasarca, +Scrotal/Penile edema SKIN: Skin color, texture, turgor normal, No rashes or lesions ASSESSMENT AND PLAN: Active Hospital Problems Diagnosis Date Noted - Ruptured abdominal aortic aneurysm (AAA) ([facility]) 01/12/2018 - Encephalopathy 01/13/2018 - DIC (disseminated intravascular coagulation) ([facility]) 01/12/2018 - Hemorrhagic shock ([facility]) 01/12/2018 - Acute respiratory failure ([facility]) 01/12/2018 - Cardiac arrest ([facility]) 01/12/2018 - Hypernatremia 01/12/2018 - Hypokalemia 01/12/2018 - Hypomagnesemia 01/12/2018 - Hypophosphatemia 01/12/2018 - Hyperchloremia 01/12/2018 - AAA (abdominal aortic aneurysm, ruptured) ([facility]) 01/12/2018 Overview Note: Added automatically from request for surgery [id number] 77 year old male with Ruptured AAA s/p Emergent Repair, takeback washout, repair of serosal tears x2, on 01/12, hemorrhagic shock, acute resp failure with pulm edema, TERENCE, SVT, s/p Third Look Laparotomy and washout on 01/14 ? - Vent mgmt per MICU - NPO/IVF - Consider TPN today - Wean Levo as able - Acute blood loss and dilutional anemia and thrombocytopenia - monitor, transfuse prn - q6 labs - Cont Abthera VAC - TERENCE -->?CVVHD running even per?Nephro - CXR with bilateral pulm edema/effusions - Unasyn empirically, BCx neg x2 day and RCx neg x1d - Hypophos and hypocalcemia - replacing - Amio per Cards for SVT - cont scrotal support Plan discussed with MICU Attending and patient's nurse --> ok to start TPN, ok to begin decreasing fluid requirements and even being to diurese as tolerated. Plan for Abdominal Washout and VAC change this evening in OR ? Assessment and plan discussed with attending: Dr. Paniagua SIGNATURE: Dionicio Stevens MD PATIENT NAME: Naveen Akins DATE: January 16, 2018 TIME: 6:12 AM Vascular AND Thoracic Surgery Service Pager: For questions or concerns Mon-Tue 6a-5p please page [phone]. After 5pm and on Weekends and Holidays, please page [phone] if in ICU or [phone] if on RNF. Previous Version Herman Sutton MD 01/16/2018 10:30 AM Signed MICU - PROGRESS NOTE SERVICE DATE: 01/16/2018 SERVICE TIME: 10:24 AM Admission Date: 01/12/2018 AGE: [age] year old LOS: 4 days Subjective Patient remains critically ill, intubated on mechanical ventilation. Remains in circulatory shock on pressors, going to OR again today at 5pm, CRRT running, plan to start removing fluids cEEG monitoring Objective PROBLEMS: ACTIVE PROBLEM LIST Gallstone Pancreatitis Ruptured Abdominal Aortic Aneurysm (Aaa) (Hcc) Dic (Disseminated Intravascular Coagulation) (Hcc) Hemorrhagic Shock (Hcc) Acute Respiratory Failure (Hcc) Cardiac Arrest (Hcc) Hypernatremia Hypokalemia Hypomagnesemia Hypophosphatemia Hyperchloremia Encephalopathy Aaa (Abdominal Aortic Aneurysm, Ruptured) (Hcc) PAST MEDICAL HISTORY Diagnosis Date - DIC (disseminated intravascular coagulation) (HCC) 01/12/2018 PAST SURGICAL HISTORY Procedure Laterality Date - LAP CHOLECYSTECT/CHOLANGIOGRAPHY 05-28-09 - REPAIR UMBILICAL NATAN,5+Y/O,REDUC 05-28-09 Social History Marital status: Spouse name: Shelly Years of education: 11 Number of children: 4 Occupational History 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 BP 109/56 Pulse 79 Temp (Src) 96.8 (Temporal Artery) Resp 18 Ht 5' 8 (1.73m) Wt 229 lb 11.5 oz (104.2kg) SpO2 98% BMI 34.94 kg/(m2). Temp (24hrs), Av.6 ?C (97.9 ?F), Min:36 ?C (96.8 ?F), Max:37 ?C (98.6 ?F) NET FLUID BALANCE Intake/Output Summary (Last 24 hours) at 01/16/18 1024 Last data filed at 01/16/18 0900 Gross per 24 hour Intake 7994.9 ml Output 9240 ml Net -1245.1 ml MEDICATIONS Current Facility-Administered Medications: sodium phosphate 45 mmol in D5W 250 mL 45 mmol INTRAVENOUS ONCE NaCl 0.9% iv infusion 100 mL/hr INTRAVENOUS CONTINUOUS amiodarone 360 mg in D5W 200 mL (NEXTERONE) 0.5-1 mg/min INTRAVENOUS CONTINUOUS heparin 5,000 Units injection 5,000 Units SUBCUTANEOUS q 12 H propofol infusion (DIPRIVAN) 5-60 mcg/kg/min INTRAVENOUS CONTINUOUS ampicillin-sulbactam 3 g in NaCl 0.9% 100 mL MB+ (UNASYN) 3 g INTRAVENOUS q 6 H NaCl 0.9% 1,000 mL iv bolus 1,000 mL INTRAVENOUS PRN DIALYSIS prismaSOL BGK 4 K / 2.5 mEq Ca/Liter 5,000 mL 5,000 mL HEMODIALYSIS continuous (no dispense) prismaSOL BGK 4 K / 2.5 mEq Ca/Liter 5,000 mL 5,000 mL HEMODIALYSIS continuous (no dispense) prismaSOL BGK 4 K / 2.5 mEq Ca/Liter 5,000 mL 5,000 mL HEMODIALYSIS continuous (no dispense) dextrose 40 % 15 g 15 g ORAL PRN Or glucagon 1 mg injection (GLUCAGEN) 1 mg INTRAMUSCULAR PRN Or dextrose 50% in water 25 mL syringe 12.5 g INTRAVENOUS PRN magnesium sulfate 1 g in D5W 100 mL 1 g INTRAVENOUS PRN magnesium sulfate in water 2 g in sterile water 50 ml 2 g INTRAVENOUS PRN fentaNYL 20 mcg/mL iv infusion in NaCl 0.9% 100 mL 25-150 mcg/hr INTRAVENOUS CONTINUOUS pantoprazole 40 mg injection (PROTONIX) 40 mg INTRAVENOUS DAILY (6 AM) NORepinephrine 16 mg in D5W 250 mL (LEVOPHED) 0.6-40 mcg/min INTRAVENOUS CONTINUOUS Chlorhexidine Gluconate 0.12 % 15 mL (PERIDEX) 15 mL ORAL q 12 H Lines, Drains, and Airways Line Arterial Line 01/12/18 0238 Arterial Line Left Brachial 4 days Central Line Double Lumen 01/12/18 0239 Right Neck 4 days Dialysis / Apheresis Double Lumen 01/13/18 1136 Left Neck 2 days Drain Drain/Tube 01/12/18 0100 Hemovac Midline Anterior Abdomen 4 days Drain/Tube 01/12/18 Fecal Management System 4 days GI Feed/Drain 01/12/18 0100 4 days Indwelling Urinary Catheter 01/12/18 1108 Assessment Temperature Monitoring 16 Fr 3 days Airway Airway Endotracheal Tube 01/12/18 1138 3 days PHYSICAL EXAM PERFORMED: General: sedate intubated Cardiovascular: Regular rhythm Respiratory: Rhonchi bilat Abdomen: Soft and Nontender Extremities: Edema- No Neurologic: Sedated Respiratory/Nursing Documentation: O2 Therapy: Ventilator (01/16/18 1001) Invasive Ventilator Mode: Pressure Regulated Volume Control (01/16/18814) Set Ventilator Respiratory Rate (BPM): 18 (01/16/18814) Total Respiratory Rate (BPM): 18 (01/16/18814) Tidal Volume Set (mL): 500 (01/16/18814) Exhaled Tidal Volume (mL): 493 (01/16/18 033) Minute Volume (L): 8.8 (01/16/18814) Peak Inspiratory Pressure (cm H2O): 24 (01/16/18814) PEEP/CPAP (cm H2O): 5 (01/16/18814) HEMODYNAMIC DATA: Reviewed NUTRITION: Enteral Feeds: No NPO DATA: Diagnostic tests reviewed for today's visit, films/specimens were personally reviewed by me: Most recent labs and imaging results. LABS: Recent Labs 01/16/18 0430 01/15/18 1000 01/14/18 1555 TROPI -- -- -- -- 0.228* WBC 10.93* < > 11.75* < > -- RBC 3.85* < > 4.28* < > -- HB 11.2* < > 12.2* < > -- HCT 32.2* < > 36.0* < > -- MCV 83.6 < > 84.1 < > -- PLT 56* < > 55* < > -- GLUC 88 < > 134* < > 78 BUN 11 < > 14 < > 17 CREAT 1.75* < > 1.93* < > 2.10* NA 137 < > 135* < > 142 K 3.9 < > 4.1 < > 4.5 CHLOR 105 < > 104 < > 111* CO2 23 < > 20* < > 22 TPROT -- -- -- -- 3.7* ALB -- -- -- -- 1.7* CA 6.7* < > 6.3* < > 6.4* ALKPHOS -- -- -- -- 67 TBILI -- -- -- -- 2.9* AST -- -- -- -- 69* ALT -- -- -- -- 13 PTSEC -- -- 12.7* < > 13.4* APTT -- -- 36.0* < > 38.6* INR -- -- 1.22 < > 1.31 MG 2.2 -- -- < > -- < > = values in this interval not displayed. ABG: Recent Labs 01/16/18 0430 01/15/18 2205 01/15/18 1530 PH 7.397 7.333* 7.323* PO2 108.6* 89.1 74.8* PCO2 35.2* 42.8 45.4 Assessment/Plan IMPRESSION: PROBLEMS: Ruptured AAA s/p surgical repair s/p Cardiac Arrest Persistent Circulatory Shock Acute Hypoxic Respiratory Failure on mechanical ventilation Encephalopathy - Multifactorial ?on continuous EEG? TERENCE on CKD?- Suspected ATN - On CRRT Lactic Acidosis - Resolved Sinus Tachycardia Thrombocytopenia SVT - Resolved MMP ? PLANS FOR TODAY: - Continue mechanical ventilation, adjust as needed, currently on 50% FIo2, no dysynchrony - Wean pressors as tolerated, goal MAP > 65mmHg - Cultures negative, remains on unasyn empirically. - plan to start removing fluids with CRRT, will discuss with nephrology - EEG impressive for severe encephalopathy, no evidence of epileptiform activity/seizures - AAA management/post-operative care per vascular surgery, going to OR again at 5pm today - Continue w/ amiodarone gtt, monitor rhythm. No further runs of SVT - Cardiology consulted, appreciate recs - Cs dietitian and start TPN today - SCDs/PPI/ Heparin SQ per primary team ? Critical Care Documentation: The patient has the following organ/system impairment(s): Circulatory shock, Complex life-threatening medical problem(s) and Respiratory failure (Acute, with Hypoxemia) ? ? This patient has a high probability of sudden, clinically significant deterioration, which requires the highest level of physician preparedness to intervene urgently. ?I managed/supervised life or organ supporting interventions that required frequent physician assessment. ?I devoted my full attention to the direct care of this patient for the amount of time indicated below. ?Time I spent with family or surrogate(s) is included only if the patient was incapable of providing the necessary information or participating in medical decision making. ?Time devoted to teaching is not included. ? Critical Care Time devoted to this patient is 32 minutes Discussed with staff/patient/family SIGNATURE: Herman Sutton MD PATIENT NAME: Naveen Akins DATE: January 16, 2018 TIME: 10:24 AM 32 Hermelinda Ferrell MD 01/16/2018 11:02 AM Attested Attestation signed by Costa Miguel at 01/16/2018 11:13 AM I saw and evaluated the patient. I reviewed the resident's note and agree. Costa Miguel MD, [facility], [facility] PROGRESS NOTE EGS Surgery Progress Note Emergency General Surgery Service Pager: For questions or concerns Mon-Tue 6a-5p please page [phone]. After 5pm and on Weekends and Holidays, please page [phone] if in ICU or [phone] if on RNF. SERVICE DATE: 01/16/2018 SERVICE TIME: 11:00 AM SUBJECTIVE: Subjective NAEON. Minimally responsive. Levo weaned. Bowel movement No Flatus No Diet DIET NPO Ambulating No Nausea No Emesis No Current Facility-Administered Medications: sodium phosphate 45 mmol in D5W 250 mL 45 mmol INTRAVENOUS ONCE NaCl 0.9% iv infusion 100 mL/hr INTRAVENOUS CONTINUOUS amiodarone 360 mg in D5W 200 mL (NEXTERONE) 0.5-1 mg/min INTRAVENOUS CONTINUOUS heparin 5,000 Units injection 5,000 Units SUBCUTANEOUS q 12 H propofol infusion (DIPRIVAN) 5-60 mcg/kg/min INTRAVENOUS CONTINUOUS ampicillin-sulbactam 3 g in NaCl 0.9% 100 mL MB+ (UNASYN) 3 g INTRAVENOUS q 6 H NaCl 0.9% 1,000 mL iv bolus 1,000 mL INTRAVENOUS PRN DIALYSIS prismaSOL BGK 4 K / 2.5 mEq Ca/Liter 5,000 mL 5,000 mL HEMODIALYSIS continuous (no dispense) prismaSOL BGK 4 K / 2.5 mEq Ca/Liter 5,000 mL 5,000 mL HEMODIALYSIS continuous (no dispense) prismaSOL BGK 4 K / 2.5 mEq Ca/Liter 5,000 mL 5,000 mL HEMODIALYSIS continuous (no dispense) dextrose 40 % 15 g 15 g ORAL PRN Or glucagon 1 mg injection (GLUCAGEN) 1 mg INTRAMUSCULAR PRN Or dextrose 50% in water 25 mL syringe 12.5 g INTRAVENOUS PRN magnesium sulfate 1 g in D5W 100 mL 1 g INTRAVENOUS PRN magnesium sulfate in water 2 g in sterile water 50 ml 2 g INTRAVENOUS PRN fentaNYL 20 mcg/mL iv infusion in NaCl 0.9% 100 mL 25-150 mcg/hr INTRAVENOUS CONTINUOUS pantoprazole 40 mg injection (PROTONIX) 40 mg INTRAVENOUS DAILY (6 AM) NORepinephrine 16 mg in D5W 250 mL (LEVOPHED) 0.6-40 mcg/min INTRAVENOUS CONTINUOUS Chlorhexidine Gluconate 0.12 % 15 mL (PERIDEX) 15 mL ORAL q 12 H OBJECTIVE: Objective PHYSICAL EXAM: VITAL SIGNS BP 109/56 Pulse 79 Temp (Src) 96.8 (Temporal Artery) Resp 18 Ht 5' 8 (1.73m) Wt 229 lb 11.5 oz (104.2kg) SpO2 98% BMI 34.94 kg/(m2). Temp (24hrs), Av.6 ?C (97.9 ?F), Min:36 ?C (96.8 ?F), Max:37 ?C (98.6 ?F) Date 01/15/18699 - 01/16/1865801/16/18699 - 01/17/18 0659 Shift 0439-4195 4814-6273 4368-7542 24 Hour Total 8667-5399 0097-2064 4781-5097 24 Hour Total I N T A K E IV 3825 2387 2106 8318 991.9 991.9 IVPB 90 350 440 NS 0.9% 355 1280 1385 3020 753 753 NS .45% 851 851 LR 936 936 Calcium IVPB 92 122 214 Fentanyl Volume 217 53 59 329 29.3 29.3 Amiodarone 116 117 132 365 68.2 68.2 NORepinephrine Volume 231 238 215 684 85.5 85.5 Potassium Phosphate 326 99 425 Propofol IV 111 100 115 326 55.9 55.9 ALBUMIN (mL) 500 500 Ampicillin/Sulbactam (Unasyn) IV 28 200 228 Irrigants 10 60 70 Irrigant/Flush Amount In ( Indwelling Urinary Catheter 01/12/18 1108 Assessment Temperature Monitoring 16 Fr) 10 10 Irrigant/Flush Amount In (Drain/Tube 01/12/18 Fecal Management System) 60 60 Shift Total 3835 2447 2106 8388 991.9 991.9 O U T P U T Urine 2 8 81 91 23 23 Tube Output ( Indwelling Urinary Catheter 01/12/18 1108 Assessment Temperature Monitoring 16 Fr) 2 8 81 91 23 23 Tubes 427 261 5718 2675 750 750 Drain/Tube Output (Drain/Tube 01/12/18 0100 Hemovac Midline Anterior Abdomen) 954 920 2039 2575 450 450 Drain/Tube Output (Drain/Tube 01/12/18 Fecal Management System) 0 0 0 0 50 50 Output (GI Feed/Drain 01/12/18 0100) 100 0 0 100 250 250 Dialysis 2082 2424 2869 7376 104 104 Dialysis Output (Ultrafiltration) 2082 2423 2869 7376 104 104 Shift Total 2865 3277 4000 87919 877 877 Weight (kg) 104.7 104.7 104.2 104.2 104.2 104.2 104.2 104.2 GENERAL: intubated. Minimally responsive. SKIN: Skin color, texture, turgor normal. No rashes or lesions. LUNGS: Unlabored breathing on O2 Therapy: Ventilator CARDIAC: rate and rhythm as above ABDOMEN: Soft, wound vac in place, open abdomen EXTREMITIES: Deferred WOUND: large wound vac, open abdomen. DATA: Diagnostic tests reviewed for today's visit: Recent Labs 01/16/18 0430 01/15/18 2205 01/15/18 1530 PH 7.397 7.333* 7.323* PCO2 35.2* 42.8 45.4 PO2 108.6* 89.1 74.8* BE -3.0 -3.6 -3.0 Recent Labs 01/16/18 0430 01/15/18 2219 01/15/18 1530 01/15/18 1000 01/15/18 0745 01/15/18 0430 01/15/18 0400 01/14/18 2210 01/14/18 1555 01/14/18 1200 01/14/18 0440 CREAT 1.75* -- 1.89* 1.93* -- -- 2.10* 2.11* 2.10* -- 2.36* 2.38* BUN 11 -- 14 14 -- -- 16 16 17 -- 19* 21* NA 137 -- 136 135* -- -- 137 138 142 -- 143 142 K 3.9 -- 4.3 4.1 -- -- 4.3 4.6 4.5 -- 4.5 4.7 CHLOR 105 -- 104 104 -- -- 105 107 111* -- 112* 110* CO2 23 -- 24 20* -- -- 21 23 22 -- 22 24 ANION 13 -- 12 15 -- -- 15 13 14 -- 14 13 GLUC 88 -- 121* 134* -- -- 112* 98 78 -- 74 85 CA 6.7* -- 6.8* 6.3* -- -- 6.4* 6.9* 6.4* -- 6.5* 6.9* P 2.5 -- -- 3.4 -- -- 1.9* -- -- -- -- 3.1 MG 2.2 -- -- -- -- -- 2.3 -- -- -- -- 1.9 ALB -- -- -- -- -- -- -- -- 1.7* -- -- -- AST -- -- -- -- -- -- -- -- 69* -- -- -- ALT -- -- -- -- -- -- -- -- 13 -- -- -- ALKPHOS -- -- -- -- -- -- -- -- 67 -- -- -- TBILI -- -- -- -- -- -- -- -- 2.9* -- -- -- WBC 10.93* 12.73* 10.70* 11.75* -- 11.17* -- 10.36* -- < > 7.65 9.62* HB 11.2* 11.6* 11.0* 12.2* -- 12.7* -- 12.4* -- < > 11.1* 12.1* HCT 32.2* 33.9* 32.4* 36.0* -- 37.2* -- 36.8* -- < > 32.5* 36.5* PLT 56* 66* 51* 55* -- 60* -- 62* -- < > 61* 59* LACT -- -- -- 1.5 -- -- 1.7 1.9 2.4* -- 1.9 2.4* INR -- -- -- 1.22 1.18 -- -- 1.23 1.31 -- 1.48 1.48 < > = values in this interval not displayed. ASSESSMENT AND PLAN: Active Hospital Problems Diagnosis Date Noted - Ruptured abdominal aortic aneurysm (AAA) ([facility]) 01/12/2018 - Encephalopathy 01/13/2018 - DIC (disseminated intravascular coagulation) ([facility]) 01/12/2018 - Hemorrhagic shock ([facility]) 01/12/2018 - Acute respiratory failure ([facility]) 01/12/2018 - Cardiac arrest ([facility]) 01/12/2018 - Hypernatremia 01/12/2018 - Hypokalemia 01/12/2018 - Hypomagnesemia 01/12/2018 - Hypophosphatemia 01/12/2018 - Hyperchloremia 01/12/2018 - AAA (abdominal aortic aneurysm, ruptured) ([facility]) 01/12/2018 Overview Note: Added automatically from request for surgery [id number] Assessment/Plan 77 yo M with Ruptured AAA s/p Emergent Repair, takeback washout, repair of serosal tears x2, on 01/12, hemorrhagic shock, acute resp failure with pulm edema, TERENCE, OR 01/14 for take back + washout ? - Vent mgmt per MICU - NPO/IVF - q6 labs - Cont Abthera VAC - TERENCE -->?CVVHD per Nephro - Unasyn empirically, BCx NG, RCx NG - amiodrip for svt - continuous EEG for concern for seizure like activity. - will follow for assistance with abd closure, awaiting definitive plans from vascular Emergency General Surgery Service Pager: For questions or concerns Mon-Fri 6a-5p please page [phone]. After 5pm and on Weekends and Holidays, please page [phone] if in ICU or [phone] if on RNF. Hermelinda Ferrell MD General Surgery, PGY-2 January 16, 2018 10:57 AM Troy Godoy MD 01/16/2018 11:02 AM Signed Subjective. No acute events Levophed requirements are about the same FiO2 at 50% 01/16/18 0710 01/16/18 0800 01/16/18 0900 01/16/18 1000 BP: 112/65 99/50 109/56 Pulse: 79 79 79 Resp: Temp: 36 ?C (96.8 ?F) TempSrc: Temporal Artery SpO2: 99% 97% 98% Weight: Height: No icterus No JVD Heart - S1 S2 Lungs - b/l air entry Abdomen - soft, non distended, no organomegaly LE - +++ edema, No cyanosis No rash Intubated and sedated CMP: Glucose 88 01/16/2018 BUN 11 01/16/2018 Creatinine 1.75 01/16/2018 Sodium 137 01/16/2018 Potassium 3.9 01/16/2018 Chloride 105 01/16/2018 CO2 23 01/16/2018 Protein, Total 3.7 01/14/2018 Albumin 1.7 01/14/2018 Calcium 6.7 01/16/2018 Alkaline Phosphatase 67 01/14/2018 Bilirubin, Total 2.9 01/14/2018 AST 69 01/14/2018 ALT 13 01/14/2018 Hemoglobin (g/dL) Date Value 11/14/2017 15.0 HGB (g/dL) Date Value 01/16/2018 11.2 Hematocrit (%) Date Value 01/16/2018 32.2 WBC (thou/cmm) Date Value 01/16/2018 10.93 Platelet Count (thou/cmm) Date Value 01/16/2018 56 Assessment/ Plan 1. Acute kidney injury on chronic kidney disease stage 3. Baseline SCr is 1.36 mg/dL on 11/14/17. CKD is likely due to nephrosclerosis related to PAD. TERENCE is 2/2 ischemic ATN from hemorrhagic shock. Pt is anuric with pressor requirement -cont CVVHDF - today CXR looks wet, clinically overloaded. D/w vascular. Fluids to be stopped today once TPN starts. Will start fluid removal 50cc/hr. D/w Dr Sutton? ? 2. Shock. Likely hemorrhagic shock-massive blood loss from ruptured AAA. Currently requiring pressor. Pressor requirements stable. As per staff, BP dropped as soon as fluid is stopped. 3. Hypernatremia. Corrected ? 4. Hyperkalemia-resolved on CRRT ? 5. Ruptured AAA. s/p repair 01/12/18. Management as per vascular surgery. ? 6. Acute hypoxic respiratory failure. Ventilator dependent. Vent management as per ICU. O2 requirements are ok Will follow ? Jaimie Perez RD, RD 01/16/2018 2:48 PM Signed NUTRITION THERAPY INITIAL ASSESSMENT SERVICE DATE: 01/16/2018 SERVICE TIME: 1050am RECOMMENDED MALNUTRITION DIAGNOSIS: NO MALNUTRITION IDENTIFIED NUTRITION CARE PLAN: Problem, Etiology and Signs/Symptoms: Altered GI function related to potential ileus as evidenced by lack of bowel sounds, distended abdomen, and hypotension. Intervention: Short term tpn until bowel fxn adequate-------> 80 gms pro, 1820 kcals as ordered meeting low end needs. Adjust volume and protein per renal plans while currently on CVVHD Reassess nutrient needs based on clinical course TF transition as tolerated Coordination of Care: d/w RN Monitor and Evaluation: Goal: Meet >75% of estimated needs Monitor fluid/electrolyte balance Monitor labs, I/Os, vital signs, weight Discharge Nutrition Recommendations: To be determined Per HPI: This is a 77 year old male transferred in critical condition from [facility] with diagnosed ruptured AAA. Patient was life-flighted to [facility]. Intubated at outside facility. Per EMS, patient went into cardiac arrest immediately prior to arrival and CPR was initiated. 4 U prbc given prior to arrival. Patient was taken emergently to OR on arrival. CPR was continued en route. ? PAST MEDICAL HISTORY Diagnosis Date - DIC (disseminated intravascular coagulation) (HCC) 01/12/2018 PAST SURGICAL HISTORY Procedure Laterality Date - LAP CHOLECYSTECT/CHOLANGIOGRAPHY 05-28-09 - REPAIR UMBILICAL NATAN,5+Y/O,REDUC 05-28-09 ; Internal Hx: S/p emergent AAA repair 2/2 rupture. S/p take back 2nd look and repair of tears X 2. Started CVVHD. Weaning pressors. EEG monitoring with encephalopathy s/p arrest. Further surgical plans for wound closure. Minimal bowel activity. NPO since admit X 4 days after tx from [facility]. Present Diet Order: NPO Enteral Access: NG Nutritional Intake Prior to Admission: Intake hx unknown;tx from [facility] and has not been on support yet here. GI symptoms: unable to determine at this time Abdominal Exam: bowel sounds are hypoactive Is the patient having any pain that is interfering with oral/enteral intake? Unable to assess ANTHROPOMETRICS Height: 172.7 cm (5' 8) Admission Weight: 80.1 kg (176 lb 9.4 oz) Current Weight: 104.2 kg (229 lb 11.5 oz) Body mass index is 34.93 kg/m?. class 2 obesity Scant wt hx and with +++ edema Last Wt 01/16/18 : 104.2 kg (229 lb 11.5 oz) [place] Body Weight: 96kg Resting Metabolic Rate: 1746 Estimated kilocalorie needs: 4058-7030 kilocalories determined by 20-25 kcal/kg Estimated protein needs: 144 grams determined by 1.5gms/kg [place] weight Estimated fluid needs: per renal NUTRITION FOCUSED PHYSICAL EXAM: Limited exam d/t pt unstable on vent with active CVVHD. Multiple drains, tubes, and wounds. Subcutaneous Fat Loss Orbital No fat loss Triceps Unable to determine at this time Mid-axillary at the iliac crest Unable to determine at this time Muscle Loss Locations: Temporalis No muscle loss Pectoralis No muscle loss Deltoids No muscle loss Interosseous Unable to determine at this time Latissimus dorsi, trapezius Unable to determine at this time Quadriceps Unable to determine at this time d/t significant edema Gastrocnemius Unable to determine at this time Potential micronutrient deficiency revealed in: No deficiency identified Edema: Yes Lower extremities ++++ Ascites: Yes d/t pulmonary edema and effusions Assessment of Functional Status: Unable to assess Temperature Max in 24 hours: Temp (24hrs), Av.6 ?C (97.8 ?F), Min:35.9 ?C (96.7 ?F), Max:37 ?C (98.6 ?F) BP 108/52 Pulse 77 Temp (!) 35.9 ?C (96.7 ?F) (Temporal Artery) Resp 18 Ht 172.7 cm (5' 8) Wt 104.2 kg (229 lb 11.5 oz) SpO2 92% BMI 34.93 kg/m? Recent Labs 01/16/18 1145 01/16/18 0430 01/14/18 1555 GLUC -- 88 < > 78 BUN -- 11 < > 17 CREAT -- 1.75* < > 2.10* NA -- 137 < > 142 K -- 3.9 < > 4.5 CHLOR -- 105 < > 111* CO2 -- 23 < > 22 ALB -- -- -- 1.7* HB 10.4* 11.2* < > -- HCT 29.6* 32.2* < > -- WBC 8.26 10.93* < > -- P -- 2.5 < > -- MG -- 2.2 < > -- < > = values in this interval not displayed. Potential Signs of Inflammation: leukocytosis and imaging studies Current Facility-Administered Medications: NaCl 0.9% iv infusion 100 mL/hr INTRAVENOUS CONTINUOUS amiodarone 360 mg in D5W 200 mL (NEXTERONE) 0.5-1 mg/min INTRAVENOUS CONTINUOUS heparin 5,000 Units injection 5,000 Units SUBCUTANEOUS q 12 H propofol infusion (DIPRIVAN) 5-60 mcg/kg/min INTRAVENOUS CONTINUOUS ampicillin-sulbactam 3 g in NaCl 0.9% 100 mL MB+ (UNASYN) 3 g INTRAVENOUS q 6 H NaCl 0.9% 1,000 mL iv bolus 1,000 mL INTRAVENOUS PRN DIALYSIS prismaSOL BGK 4 K / 2.5 mEq Ca/Liter 5,000 mL 5,000 mL HEMODIALYSIS continuous (no dispense) prismaSOL BGK 4 K / 2.5 mEq Ca/Liter 5,000 mL 5,000 mL HEMODIALYSIS continuous (no dispense) prismaSOL BGK 4 K / 2.5 mEq Ca/Liter 5,000 mL 5,000 mL HEMODIALYSIS continuous (no dispense) dextrose 40 % 15 g 15 g ORAL PRN Or glucagon 1 mg injection (GLUCAGEN) 1 mg INTRAMUSCULAR PRN Or dextrose 50% in water 25 mL syringe 12.5 g INTRAVENOUS PRN magnesium sulfate 1 g in D5W 100 mL 1 g INTRAVENOUS PRN magnesium sulfate in water 2 g in sterile water 50 ml 2 g INTRAVENOUS PRN fentaNYL 20 mcg/mL iv infusion in NaCl 0.9% 100 mL 25-150 mcg/hr INTRAVENOUS CONTINUOUS pantoprazole 40 mg injection (PROTONIX) 40 mg INTRAVENOUS DAILY (6 AM) NORepinephrine 16 mg in D5W 250 mL (LEVOPHED) 0.6-40 mcg/min INTRAVENOUS CONTINUOUS Chlorhexidine Gluconate 0.12 % 15 mL (PERIDEX) 15 mL ORAL q 12 H Intake/Output 01/12/18 0700 - 01/13/18 0659 01/13/18 07 - 01/14/18 0659 01/14/18 0700 - 01/15/18 0659 01/15/18 0700 - 01/16/18 0659 01/16/18 0700 - 01/17/18 0659 Intake (ml) 81587 8893.5 9167.4 8388 1518.2 Output (ml) 6865 5529 9661 02755 1791 Net (ml) 4742 3364.5 -493.6 -1754 -272.8 Negative Pressure Wound Therapy 01/12/18 0749 Abdomen (Active) Negative Pressure: Output (mL) 500 01/14/2018 5:00 PM Number of days: 4 Surgical Incision 01/12/18 0619 Abdomen - Midline (Active) Dressing Status Intact 01/16/2018 8:00 AM Frequency of Dressing Change As Needed;Every 3 Days 01/16/2018 8:00 AM Dressing Change Due 01/16/18 01/16/2018 8:00 AM Dressing /Treatment Type Negative Pressure Wound Therapy 01/16/2018 8:00 AM Incision Closures None 01/16/2018 8:00 AM Drainage Description Serosanguineous 01/16/2018 8:00 AM Drainage Amount Large 01/16/2018 8:00 AM Edges Broken 01/16/2018 8:00 AM Hematoma No 01/16/2018 8:00 AM Number of days: 4 MNT Billing Type: Initial Assess/15 min 4 units SIGNATURE: Jaimie Perez RD PATIENT NAME: Naveen Akins DATE: January 16, 2018 TIME: 1:44 PM PAGER: [phone] Viktoriya Alvarado RN, RN 01/16/2018 2:40 PM Signed CARE MANAGEMENT PROGRESS NOTE SERVICE DATE: 01/16/2018 SERVICE TIME: 2:38 PM LOS: 4 days Chart reviewed. Patient remains in CVICU. Plan for return to OR today with Vascular Surgery. Remains intubated, on CVVHD. Plan to start TPN. Continue to follow to assist with transitional needs. SIGNATURE: Viktoriya Alvarado RN PATIENT NAME: Naveen Akins DATE: January 16, 2018 TIME: 2:38 PM PAGER/CONTACT #: [phone] Yessica Guy RN, RN 01/16/2018 5:44 PM Signed Whenever this patient comes back to the OR to be closed, an xray needs to be done prior to. PER DR. LA Felder MD 01/16/2018 6:13 PM Signed BRIEF OPERATIVE / PROCEDURE NOTE LOG ID: [id number] SURGERY/PROCEDURE DATE: 01/16/2018 INCISION/PROCEDURE START TIME: 5:30 PM INCISION CLOSE/PROCEDURE END TIME: 5:57 PM SURGEON(S)/PROCEDURALIST(S) AND VISUAL ARTS TEACHER(S): Surgeon(s) and Role: * Venkat Paniagua - Primary * Kannan (Luther Felder - Resident - Assisting Dyed Yarn Operator: Dorcas Schuler SA SURGERY/PROCEDURE(S): exploratory laparotomy. Change of wound vac, abdominal washout. ANESTHESIA: General FINDINGS: no evidence of bowel ischemia. Unable to close fascial defect at least 12 cm of defect remain. ESTIMATED BLOOD LOSS: 20 mls SPECIMENS: None COMPLICATIONS: None PRE-OP/PRE-PROCEDURE DIAGNOSIS: s/p ruptured AAA. POST-OP/POST-PROCEDURE DIAGNOSIS: s/p AAA abdominal aortic aneurysm, ruptured open abdominal cavity SIGNATURE: Kannan Felder MD PATIENT NAME: Naveen Akins DATE: January 16, 2018 TIME: 6:12 PM PAGER/CONTACT #: Derian Barlow MD 01/16/2018 7:07 PM Signed ANESTHESIOLOGY DAY OF SURGERY NOTE SERVICE DATE: 01/16/2018 SERVICE TIME: 1629 : 1940 Procedure(s) (LRB): EXPLORATORY LAPAROTOMY, WASHOUT, ABTHERA VAC CHANGE (N/A) Surgeon(s): Venkat Brunner (Res) Hieb Estimated body mass index is 34.93 kg/m? as calculated from the following: Height as of this encounter: 172.7 cm (5' 8). Weight as of this encounter: 104.2 kg (229 lb 11.5 oz). Most recent hematocrit and potassium results: Hematocrit 29.6 01/16/2018 Potassium 3.9 01/16/2018 ANES DOS/PREOP NOTE: Vitals: 01/16/18 1705 01/16/18 1815 01/16/18 1830 01/16/18 1845 BP: Pulse: 84 86 91 88 Resp: 17 16 15 16 Temp: TempSrc: SpO2: 91% 95% 90% 96% Weight: Height: ACTIVE PROBLEM LIST Gallstone Pancreatitis Ruptured Abdominal Aortic Aneurysm (Aaa) (Hcc) Dic (Disseminated Intravascular Coagulation) (Hcc) Hemorrhagic Shock (Hcc) Acute Respiratory Failure (Hcc) Cardiac Arrest (Hcc) Hypernatremia Hypokalemia Hypomagnesemia Hypophosphatemia Hyperchloremia Encephalopathy Aaa (Abdominal Aortic Aneurysm, Ruptured) (Hcc) Obesity, Class I, Bmi 30-34.9 PAST MEDICAL HISTORY Diagnosis Date - DIC (disseminated intravascular coagulation) (HCC) 01/12/2018 PAST SURGICAL HISTORY Procedure Laterality Date - LAP CHOLECYSTECT/CHOLANGIOGRAPHY 05-28-09 - REPAIR UMBILICAL NATAN,5+Y/O,REDUC 05-28-09 FAMILY HISTORY Problem Relation Age of Onset - Coronary Artery Disease Father - None Mother Social History: Social History Substance Use Topics - Smoking status: Never Smoker - Smokeless tobacco: Not on file - Alcohol use No No current facility-administered medications on file prior to encounter. Current Outpatient Prescriptions on File Prior to Encounter: metoprolol succinate(TOPROL XL 50 MG 24 HR TAB) Take one(1) tablet daily. ASPIRIN 325 MG TAB Take one(1) tablet daily. triamterene/hydrochlorothiazid(DYAZIDE 37.5 MG-25 MG CAP) take one half (1/2) tablet daily LIPITOR 10 MG TAB Take one(1) tablet daily. Current Facility-Administered Medications: [MAR Hold due to Transfer] Parenteral Nutrition - Adult INTRAVENOUS ONCE TPN (1800 START) Perla Dudley Last Rate: 100 mL/hr at 01/16/18 1851 [MAR Hold due to Transfer] heparin 1,000 unit/mL 4,000 Units injection 4,000 Units INTRAVENOUS 3 Times weekly with dialysis Troy Godoy 1.4 mL at 01/16/18 1739 [MAR Hold due to Transfer] NaCl 0.9% iv infusion 100 mL/hr INTRAVENOUS CONTINUOUS Dionicio (Res) Stevens Last Rate: 100 mL/hr at 01/16/18 1843 100 mL/hr at 01/16/18 184 [MAR Hold due to Transfer] amiodarone 360 mg in D5W 200 mL (NEXTERONE) 0.5-1 mg/min INTRAVENOUS CONTINUOUS Paulo (Meter Repair Shop Supervisor) Hudock Last Rate: 16.67 mL/hr at 01/16/18 1843 0.5 mg/min at 01/16/18 184 [MAR Hold due to Transfer] heparin 5,000 Units injection 5,000 Units SUBCUTANEOUS q 12 H Mervin (Res) Wally 5,000 Units at 01/16/18 0845 [MAR Hold due to Transfer] propofol infusion (DIPRIVAN) 5- 60 mcg/kg/min INTRAVENOUS CONTINUOUS Chente Whittaker Last Rate: 14.42 mL/hr at 01/16/18 1323 30 mcg/kg/min at 01/16/18 1323 [MAR Hold due to Transfer] ampicillin-sulbactam 3 g in NaCl 0.9% 100 mL MB+ (UNASYN) 3 g INTRAVENOUS q 6 H Chente Whittaker Last Rate: 200 mL/hr at 01/16/18 184 3 g at 01/16/18 184 [MAR Hold due to Transfer] NaCl 0.9% 1,000 mL iv bolus 1,000 mL INTRAVENOUS PRN DIALYSIS Shen Lorenzo [MAR Hold due to Transfer] prismaSOL BGK 4 K / 2.5 mEq Ca/Liter 5,000 mL 5,000 mL HEMODIALYSIS continuous (no dispense) Shen Lorenzo Last Rate: 700 mL/hr at 01/16/18 1300 5,000 mL at 01/16/18 1300 [MAR Hold due to Transfer] prismaSOL BGK 4 K / 2.5 mEq Ca/Liter 5,000 mL 5,000 mL HEMODIALYSIS continuous (no dispense) Shen Lorenzo Last Rate: 700 mL/hr at 01/16/18 1300 5,000 mL at 01/16/18 1300 [MAR Hold due to Transfer] prismaSOL BGK 4 K / 2.5 mEq Ca/Liter 5,000 mL 5,000 mL HEMODIALYSIS continuous (no dispense) Shen Lorenzo Last Rate: 700 mL/hr at 01/16/18 1300 5,000 mL at 01/16/18 1300 [MAR Hold due to Transfer] dextrose 40 % 15 g 15 g ORAL PRN Jack Regula Or [MAR Hold due to Transfer] glucagon 1 mg injection (GLUCAGEN) 1 mg INTRAMUSCULAR PRN Jack Regula Or [MAR Hold due to Transfer] dextrose 50% in water 25 mL syringe 12.5 g INTRAVENOUS PRN Jack Regula [MAR Hold due to Transfer] magnesium sulfate 1 g in D5W 100 mL 1 g INTRAVENOUS PRN Emilie (Res) Cardella Last Rate: 100 mL/hr at 01/15/18 0016 1 g at 01/15/18 0016 [MAR Hold due to Transfer] magnesium sulfate in water 2 g in sterile water 50 ml 2 g INTRAVENOUS PRN Emilie (Res) Cardella Last Rate: 25 mL/hr at 01/13/18 1004 2 g at 01/13/18 1004 [MAR Hold due to Transfer] fentaNYL 20 mcg/mL iv infusion in NaCl 0.9% 100 mL 25-150 mcg/hr INTRAVENOUS CONTINUOUS Emilie (Res) Cardella Last Rate: 7.5 mL/hr at 01/16/18 1844 150 mcg/hr at 01/16/181843 [MAR Hold due to Transfer] pantoprazole 40 mg injection (PROTONIX) 40 mg INTRAVENOUS DAILY (6 AM) Emilie (Res) Cardella 40 mg at 01/16/18 0520 [MAR Hold due to Transfer] NORepinephrine 16 mg in D5W 250 mL (LEVOPHED) 0.6-40 mcg/min INTRAVENOUS CONTINUOUS Chente Whittaker Last Rate: 20.63 mL/hr at 01/16/18 1843 22 mcg/min at 01/16/181842 [MAR Hold due to Transfer] Chlorhexidine Gluconate 0.12 % 15 mL (PERIDEX) 15 mL ORAL q 12 H Elder Granda 15 mL at 01/16/18 0845 Allergies: ALLERGIES No Known Allergies DOS EXAM: Adequate NPO status: Yes Anesthetic risks, benefits, alternatives, personnel and consent discussed: Yes Patient agrees to proceed: Yes Previous Anesthesia: No history of adverse event. Airway Assessment: Patient intubated or has existing tracheostomy. Symptoms of Sleep Apnea: N/A Dentition: N/A Additional Physical Exam: Lungs: Lungs clear to auscultation. Good diaphragmatic excursion. Cardiac: normal S1 and S2; no rubs, no murmurs, and no gallops Additional Pertinent Findings: N/A Blood Products: Not anticipated for this procedure. Anesthetic Plan: General, Standard ASA Monitors Pain Management Plan: Parenteral or Oral ASA Class: 4 Other Medical Problems: None Chronic Beta Lyric medication administered within 24 hours: N/A I have interviewed and examined the patient. I have reviewed the medical record and/or the pre-anesthesia evaluation, pertinent labs, and test results. Significant changes in the patient's condition since the History and Physical, not otherwise documented in primary service progress notes: No This contains updated information obtained within 48 hours of Surgery/Procedure. SIGNATURE: Derian Barlow MD PATIENT NAME: Naveen Aknis DATE: January 16, 2018 TIME: 7:06 PM CSN: [id number] Derian Barlow MD 01/16/2018 7:08 PM Signed POST ANESTHESIA EVALUATION NOTE SERVICE DATE: 01/16/2018 SERVICE TIME: 1907 : 1940 Vitals: 01/16/18 0000 01/16/18 0500 01/16/18 0710 01/16/18 1110 Temp: 36.5 ?C (97.7 ?F) 36.1 ?C (97 ?F) 36 ?C (96.8 ?F) (!) 35.9 ?C (96.7 ?F) 01/16/18169901/16/18181401/16/18182901/16/18 184 Arterial BP 1: 110/47 125/52 145/59 112/48 BP: 01/16/18170401/16/18181401/16/18 18301/16/18 184 Pulse: 84 86 91 88 01/16/18170401/16/18181401/16/18 18301/16/18 184 Resp: 17 16 15 16 01/16/18170401/16/18181401/16/18 18301/16/18 184 SpO2: 91% 95% 90% 96% Validated Vital Signs: Yes POST ANES STATUS: No apparent anesthetic complications. The patient is appropriately hydrated with stable respiratory and cardiovascular status. Patient has safe and adequate airway control. The patient has appropriate pain relief and no significant post operative nausea or vomiting. The patient has achieved baseline mental status. Further assessment by Anesthesia Service: None Other Remarks: SIGNATURE: Derian Barlow MD PATIENT NAME: Naveen Akins DATE: January 16, 2018 TIME: 7:08 PM PAGER/CONTACT #: Ariadna Stewart, RN, RN 01/16/2018 7:36 PM Signed crrt taken off per supervisor agricultural education at around 1645 for OR trip/ crrt resumed at 1930/ on 4 k bfr 200 flows at 700 / supervisor agricultural education to try to remove some fluid off per hour depending on bp/ drsg changed to LIJ dialysis catheter/ hemosafe device x2 - report to supervisor agricultural education /ariadna stewart rn Dionicio Stevens MD 01/17/2018 10:27 AM Signed Vascular Surgery Progress Note SERVICE DATE: 01/17/2018 Vascular AND Thoracic Surgery Service Pager: For questions or concerns Mon-Fri 6a-5p please page [phone]. After 5pm and on Weekends and Holidays, please page [phone] if in ICU or [phone] if on RNF. Subjective SUBJECTIVE: NAEON per nurseAUBREE on Sedation holiday, not following commands Diet: DIET NPO Parenteral Nutrition - Adult Objective OBJECTIVE: Vitals: Temp (24hrs), Av.3 ?C (97.4 ?F), Min:35.9 ?C (96.7 ?F), Max:36.8 ?C (98.2 ?F) BP 102/50 Pulse 76 Temp 36.5 ?C (97.7 ?F) (Temporal Artery) Resp 18 Ht 172.7 cm (5' 8) Wt 104.2 kg (229 lb 11.5 oz) SpO2 97% BMI 34.93 kg/m? O2 Therapy: Ventilator IANDO: Date 01/16/18699 - 01/17/18 0659 01/17/18699 - 01/18/18 0659 Shift 1423-7203 7500-0575 6149-1787 24 Hour Total 6384-0011 1179-8064 0312-9913 24 Hour Total I N T A K E IV 2251.1 1710.7 1240 5201.8 IVPB 604 604 NS 0.9% 1086.9 637.8 618 2342.7 Calcium IVPB 299.9 299.9 Fentanyl Volume 57.3 39.8 53 150.1 Amiodarone 148.8 115.9 119 383.7 NORepinephrine Volume 165.8 141.7 175 482.5 Potassium Phosphate 281.1 281.1 Propofol IV 111.3 71.5 75 257.8 Ampicillin/Sulbactam (Unasyn) IV 100 100 200 400 TPN/PPN 319 297 616 TPN 319 297 616 Other 152 152 OR 152 152 Shift Total 2251.1 2181.7 1537 5969.8 O U T P U T Urine 116 5 34 155 Tube Output ( Indwelling Urinary Catheter 01/12/18 1108 Assessment Temperature Monitoring 16 Fr) 116 5 34 155 Tubes 2847 432 9960 2955 Drain/Tube Output (Drain/Tube 01/12/18 0100 Hemovac Midline Anterior Abdomen) 850 687 142 0814 Drain/Tube Output (Drain/Tube 01/12/18 Fecal Management System) 125 0 50 175 Output (GI Feed/Drain 01/12/18 0100) 355 100 100 555 Dialysis 564 1073 2139 3776 Dialysis Output (Ultrafiltration) 564 1073 2139 3776 Shift Total 2009 1703 3173 6886 Weight (kg) 104.2 104.2 104.2 104.2 104.2 104.2 104.2 104.2 MEDICATIONS Current Facility-Administered Medications: Parenteral Nutrition - Adult INTRAVENOUS ONCE TPN (1800 START) heparin 1,000 unit/mL 4,000 Units injection 4,000 Units INTRAVENOUS 3 Times weekly with dialysis NaCl 0.9% iv infusion 100 mL/hr INTRAVENOUS CONTINUOUS amiodarone 360 mg in D5W 200 mL (NEXTERONE) 0.5-1 mg/min INTRAVENOUS CONTINUOUS heparin 5,000 Units injection 5,000 Units SUBCUTANEOUS q 12 H propofol infusion (DIPRIVAN) 5-60 mcg/kg/min INTRAVENOUS CONTINUOUS ampicillin-sulbactam 3 g in NaCl 0.9% 100 mL MB+ (UNASYN) 3 g INTRAVENOUS q 6 H NaCl 0.9% 1,000 mL iv bolus 1,000 mL INTRAVENOUS PRN DIALYSIS prismaSOL BGK 4 K / 2.5 mEq Ca/Liter 5,000 mL 5,000 mL HEMODIALYSIS continuous (no dispense) prismaSOL BGK 4 K / 2.5 mEq Ca/Liter 5,000 mL 5,000 mL HEMODIALYSIS continuous (no dispense) prismaSOL BGK 4 K / 2.5 mEq Ca/Liter 5,000 mL 5,000 mL HEMODIALYSIS continuous (no dispense) dextrose 40 % 15 g 15 g ORAL PRN Or glucagon 1 mg injection (GLUCAGEN) 1 mg INTRAMUSCULAR PRN Or dextrose 50% in water 25 mL syringe 12.5 g INTRAVENOUS PRN magnesium sulfate 1 g in D5W 100 mL 1 g INTRAVENOUS PRN magnesium sulfate in water 2 g in sterile water 50 ml 2 g INTRAVENOUS PRN fentaNYL 20 mcg/mL iv infusion in NaCl 0.9% 100 mL 25-150 mcg/hr INTRAVENOUS CONTINUOUS pantoprazole 40 mg injection (PROTONIX) 40 mg INTRAVENOUS DAILY (6 AM) NORepinephrine 16 mg in D5W 250 mL (LEVOPHED) 0.6-40 mcg/min INTRAVENOUS CONTINUOUS Chlorhexidine Gluconate 0.12 % 15 mL (PERIDEX) 15 mL ORAL q 12 H Labs: Recent Labs 01/17/18 0435 01/16/18 1955 01/16/18 0430 01/15/18 1000 01/15/18 0745 01/15/18 0400 01/14/18 1555 NA 137 137 -- 137 < > 135* -- -- 137 < > 142 K 4.0 3.9 -- 3.9 < > 4.1 -- -- 4.3 < > 4.5 CHLOR 106 105 -- 105 < > 104 -- -- 105 < > 111* CO2 24 24 -- 23 < > 20* -- -- 21 < > 22 BUN 12 11 -- 11 < > 14 -- -- 16 < > 17 CREAT 1.67* 1.83* -- 1.75* < > 1.93* -- -- 2.10* < > 2.10* GLUC 171* 106* -- 88 < > 134* -- -- 112* < > 78 ANION 11 12 -- 13 < > 15 -- -- 15 < > 14 CA 6.2* 6.9* -- 6.7* < > 6.3* -- -- 6.4* < > 6.4* MG 2.3 -- -- 2.2 -- -- -- -- 2.3 < > -- P 3.3 -- -- 2.5 -- 3.4 -- -- 1.9* < > -- ALB -- -- -- -- -- -- -- -- -- -- 1.7* AST -- -- -- -- -- -- -- -- -- -- 69* ALT -- -- -- -- -- -- -- -- -- -- 13 ALKPHOS -- -- -- -- -- -- -- -- -- -- 67 TBILI -- -- -- -- -- -- -- -- -- -- 2.9* WBC 8.70 11.42* < > 10.93* < > 11.75* -- < > -- < > -- HB 10.6* 10.3* < > 11.2* < > 12.2* -- < > -- < > -- HCT 30.5* 30.1* < > 32.2* < > 36.0* -- < > -- < > -- PLT 59* 65* < > 56* < > 55* -- < > -- < > -- LACT -- -- -- -- -- 1.5 -- -- 1.7 < > 2.4* INR -- -- -- -- -- 1.22 1.18 -- -- < > 1.31 PH 7.352 7.315* < > 7.397 < > 7.427 -- -- 7.407 < > 7.316* PCO2 42.7 45.4 < > 35.2* < > 30.7* -- -- 33.6* < > 42.8 PO2 78.8* 72.9* < > 108.6* < > 78.6* -- -- 79.4* < > 72.8* BE -2.4 -3.5 < > -3.0 < > -3.8 -- -- -3.3 < > -4.6 < > = values in this interval not displayed. Exam: GENERAL: No distress NEURO: intubated/sedated HEENT: normocephalic, atraumatic LUNGS: Unlabored breathing O2 Therapy: Ventilator CARDIAC: Regular rate and rhythm as above ABDOMEN: Soft, mild D, NT, VAC intact w SS output EXTREMITIES: MAK, No deformities, + edema, palpable pulses SKIN: Skin color, texture, turgor normal, No rashes or lesions ASSESSMENT AND PLAN: Active Hospital Problems Diagnosis Date Noted - Ruptured abdominal aortic aneurysm (AAA) ([facility]) 01/12/2018 - Obesity, Class I, BMI 30-34.9 01/16/2018 - Encephalopathy 01/13/2018 - DIC (disseminated intravascular coagulation) ([facility]) 01/12/2018 - Hemorrhagic shock ([facility]) 01/12/2018 - Acute respiratory failure ([facility]) 01/12/2018 - Cardiac arrest ([facility]) 01/12/2018 - Hypernatremia 01/12/2018 - Hypokalemia 01/12/2018 - Hypomagnesemia 01/12/2018 - Hypophosphatemia 01/12/2018 - Hyperchloremia 01/12/2018 - AAA (abdominal aortic aneurysm, ruptured) ([facility]) 01/12/2018 Overview Note: Added automatically from request for surgery [id number] 77 year old male with Ruptured AAA s/p Emergent Repair, takeback washout, repair of serosal tears x2, on 01/12, hemorrhagic shock, acute resp failure with pulm edema, TERENCE, SVT, s/p Third Look Laparotomy and?washout on 01/14, fourth look, washout, vac change on 01/16 ? - Vent mgmt per MICU - NPO/TPN - Wean Levo as able - Acute blood loss and dilutional anemia and thrombocytopenia - monitor, transfuse prn - q6 labs - Cont Abthera VAC - TERENCE -->?CVVHD per?Nephro - CXR with bilateral pulm edema/effusions, unchanged - Unasyn empirically per MICU - Hypophos and hypocalcemia?- replacing - Amio per Cards for SVT - cont scrotal support ?? Assessment and plan discussed with attending: Dr. Paniagua SIGNATURE: Dionicio Stevens MD PATIENT NAME: Naveen Akins DATE: January 17, 2018 TIME: 6:31 AM Vascular AND Thoracic Surgery Service Pager: For questions or concerns Tue-Tue 6a-5p please page [phone]. After 5pm and on Weekends and Holidays, please page [phone] if in ICU or [phone] if on RNF. Herman Sutton MD 01/17/2018 10:01 AM Signed MICU - PROGRESS NOTE SERVICE DATE: 01/17/2018 SERVICE TIME: 9:52 AM Admission Date: 01/12/2018 AGE: [age] year old LOS: 5 days Subjective REASON FOR ICU ADMISSION: Patient remains critically ill, intubated on mechanical ventilation. ? S/p laparotomy yesterday Remains in circulatory shock on pressors CRRT running, very sensitive to fluids removal cEEG monitoring SAT tried this am an d patient started to wake up Objective PROBLEMS: ACTIVE PROBLEM LIST Gallstone Pancreatitis Ruptured Abdominal Aortic Aneurysm (Aaa) (Hcc) Dic (Disseminated Intravascular Coagulation) (Hcc) Hemorrhagic Shock (Hcc) Acute Respiratory Failure (Hcc) Cardiac Arrest (Hcc) Hypernatremia Hypokalemia Hypomagnesemia Hypophosphatemia Hyperchloremia Encephalopathy Aaa (Abdominal Aortic Aneurysm, Ruptured) (Hcc) Obesity, Class I, Bmi 30-34.9 PAST MEDICAL HISTORY Diagnosis Date - DIC (disseminated intravascular coagulation) (HCC) 01/12/2018 PAST SURGICAL HISTORY Procedure Laterality Date - LAP CHOLECYSTECT/CHOLANGIOGRAPHY 05-28-09 - REPAIR UMBILICAL NATAN,5+Y/O,REDUC 05-28-09 Social History Marital status: Spouse name: Shelly Years of education: 11 Number of children: 4 Occupational History 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 BP 106/56 Pulse 79 Temp (Src) 96.4 (Axillary) Resp 18 Ht 5' 8 (1.73m) Wt 229 lb 11.5 oz (104.2kg) SpO2 95% BMI 34.94 kg/(m2). Temp (24hrs), Av.3 ?C (97.3 ?F), Min:35.8 ?C (96.4 ?F), Max:36.8 ?C (98.2 ?F) NET FLUID BALANCE Intake/Output Summary (Last 24 hours) at 01/17/18 0952 Last data filed at 01/17/18 0800 Gross per 24 hour Intake 5442.9 ml Output 7007 ml Net -1564.1 ml MEDICATIONS Current Facility-Administered Medications: calcium gluconate 4 g in NaCl 0.9% 250 mL 4 g INTRAVENOUS ONCE sodium phosphate 45 mmol in D5W 250 mL 45 mmol INTRAVENOUS ONCE Parenteral Nutrition - Adult INTRAVENOUS ONCE TPN (1800 START) heparin 1,000 unit/mL 4,000 Units injection 4,000 Units INTRAVENOUS 3 Times weekly with dialysis NaCl 0.9% iv infusion 100 mL/hr INTRAVENOUS CONTINUOUS amiodarone 360 mg in D5W 200 mL (NEXTERONE) 0.5-1 mg/min INTRAVENOUS CONTINUOUS heparin 5,000 Units injection 5,000 Units SUBCUTANEOUS q 12 H propofol infusion (DIPRIVAN) 5-60 mcg/kg/min INTRAVENOUS CONTINUOUS ampicillin-sulbactam 3 g in NaCl 0.9% 100 mL MB+ (UNASYN) 3 g INTRAVENOUS q 6 H NaCl 0.9% 1,000 mL iv bolus 1,000 mL INTRAVENOUS PRN DIALYSIS prismaSOL BGK 4 K / 2.5 mEq Ca/Liter 5,000 mL 5,000 mL HEMODIALYSIS continuous (no dispense) prismaSOL BGK 4 K / 2.5 mEq Ca/Liter 5,000 mL 5,000 mL HEMODIALYSIS continuous (no dispense) prismaSOL BGK 4 K / 2.5 mEq Ca/Liter 5,000 mL 5,000 mL HEMODIALYSIS continuous (no dispense) dextrose 40 % 15 g 15 g ORAL PRN Or glucagon 1 mg injection (GLUCAGEN) 1 mg INTRAMUSCULAR PRN Or dextrose 50% in water 25 mL syringe 12.5 g INTRAVENOUS PRN magnesium sulfate 1 g in D5W 100 mL 1 g INTRAVENOUS PRN magnesium sulfate in water 2 g in sterile water 50 ml 2 g INTRAVENOUS PRN fentaNYL 20 mcg/mL iv infusion in NaCl 0.9% 100 mL 25-150 mcg/hr INTRAVENOUS CONTINUOUS pantoprazole 40 mg injection (PROTONIX) 40 mg INTRAVENOUS DAILY (6 AM) NORepinephrine 16 mg in D5W 250 mL (LEVOPHED) 0.6-40 mcg/min INTRAVENOUS CONTINUOUS Chlorhexidine Gluconate 0.12 % 15 mL (PERIDEX) 15 mL ORAL q 12 H Lines, Drains, and Airways Line Arterial Line 01/12/18 0238 Arterial Line Left Brachial 5 days Central Line Double Lumen 01/12/18 0239 Right Neck 5 days Dialysis / Apheresis Double Lumen 01/13/18 1136 Left Neck 3 days Drain Drain/Tube 01/12/18 0100 Hemovac Midline Anterior Abdomen 5 days Drain/Tube 01/12/18 Fecal Management System 5 days GI Feed/Drain 01/12/18 0100 5 days Indwelling Urinary Catheter 01/12/18 1108 Assessment Temperature Monitoring 16 Fr 4 days Airway Airway Endotracheal Tube 01/12/18 1138 4 days PHYSICAL EXAM PERFORMED: General: sedated intubated Cardiovascular: Regular rhythm Respiratory: Rhonchi bilaterally Abdomen: Soft and Nontender Extremities: Edema- No Neurologic: Sedated Respiratory/Nursing Documentation: O2 Therapy: Ventilator (01/17/18919) Invasive Ventilator Mode: Pressure Regulated Volume Control (01/17/18919) Set Ventilator Respiratory Rate (BPM): 18 (01/17/18919) Total Respiratory Rate (BPM): 18 (01/17/18919) Tidal Volume Set (mL): 500 (01/17/18919) Exhaled Tidal Volume (mL): 508 (01/17/18347) Minute Volume (L): 8.9 (01/17/18919) Peak Inspiratory Pressure (cm H2O): 21 (01/17/18919) PEEP/CPAP (cm H2O): 5 (01/17/18919) HEMODYNAMIC DATA: Reviewed NUTRITION: TPN DATA: Diagnostic tests reviewed for today's visit, films/specimens were personally reviewed by me: Most recent labs and imaging results. LABS: Recent Labs 01/17/18 0435 01/15/18 1000 01/14/18 1555 TROPI -- -- -- -- 0.228* WBC 8.70 < > 11.75* < > -- RBC 3.58* < > 4.28* < > -- HB 10.6* < > 12.2* < > -- HCT 30.5* < > 36.0* < > -- MCV 85.2 < > 84.1 < > -- PLT 59* < > 55* < > -- GLUC 171* < > 134* < > 78 BUN 12 < > 14 < > 17 CREAT 1.67* < > 1.93* < > 2.10* NA 137 < > 135* < > 142 K 4.0 < > 4.1 < > 4.5 CHLOR 106 < > 104 < > 111* CO2 24 < > 20* < > 22 TPROT -- -- -- -- 3.7* ALB -- -- -- -- 1.7* CA 6.2* < > 6.3* < > 6.4* ALKPHOS -- -- -- -- 67 TBILI -- -- -- -- 2.9* AST -- -- -- -- 69* ALT -- -- -- -- 13 PTSEC -- -- 12.7* < > 13.4* APTT -- -- 36.0* < > 38.6* INR -- -- 1.22 < > 1.31 MG 2.3 < > -- < > -- < > = values in this interval not displayed. ABG: Recent Labs 01/17/18 0435 01/16/18 1955 01/16/18 1145 PH 7.352 7.315* 7.363 PO2 78.8* 72.9* 71.6* PCO2 42.7 45.4 40.5 Assessment/Plan IMPRESSION: ? PROBLEMS: Ruptured AAA s/p surgical repair s/p Cardiac Arrest Persistent Circulatory Shock Acute Hypoxic Respiratory Failure on mechanical ventilation Encephalopathy - Multifactorial ?on continuous EEG? TERENCE on CKD?- Suspected ATN - On CRRT Lactic Acidosis - Resolved Sinus Tachycardia Thrombocytopenia SVT - Resolved MMP ? PLANS FOR TODAY: Continue?mechanical ventilation, adjust as needed, currently on 50% FIo2, no dysynchrony Wean pressors as tolerated, goal MAP > 65mmHg Cultures negative, remains on unasyn empirically. Hold on removing fluids giving his HD fluctuation EEG impressive for severe encephalopathy, no evidence of epileptiform activity/seizures SAT daily AAA management/post-operative care per vascular surgery, going to OR again at 5pm today Continue w/ amiodarone gtt, monitor rhythm. ?No further runs of SVT Cardiology consulted, appreciate recs Continue TPN SCDs/PPI/ Heparin SQ per primary team Guarded prgnosis ? Critical Care Documentation:?The patient has the following organ/system impairment(s): ?Circulatory shock, Complex life-threatening ?medical problem(s) and Respiratory failure (Acute, with Hypoxemia) ? ? This patient has a high probability of sudden, clinically significant deterioration, which requires the highest level of physician preparedness to intervene urgently. ?I managed/supervised life or organ supporting interventions that required frequent physician assessment. ?I devoted my full attention to the direct care of this patient for the amount of time indicated below. ?Time I spent with family or surrogate(s) is included only if the patient was incapable of providing the necessary information or participating in medical decision making. ?Time devoted to teaching is not included. ? Critical Care Time devoted to this patient is ?35 minutes SIGNATURE: Herman Sutton MD PATIENT NAME: Naveen Akins DATE: January 17, 2018 TIME: 9:53 AM Rosanna Talbert MD 01/17/2018 11:20 AM Signed Nephrology Progress Note Following for TERENCE. Pt is sedated and is on ventilator. Cannot obtain ROS. Current Inpatient Medications: Current Facility-Administered Medications Ordered in Epic: calcium gluconate 4 g in NaCl 0.9% 250 mL 4 g INTRAVENOUS ONCE Dionicio (Res) Stevens Last Rate: 62.5 mL/hr at 01/17/18 0906 4 g at 01/17/18 0906 sodium phosphate 45 mmol in D5W 250 mL 45 mmol INTRAVENOUS ONCE Dionicio (Res) Stevens Last Rate: 42 mL/hr at 01/17/18 0906 45 mmol at 01/17/18 0906 propofol infusion (DIPRIVAN) 0-15 mcg/kg/min (Adjusted) INTRAVENOUS CONTINUOUS Dionicio (Res) Stevens Parenteral Nutrition - Adult INTRAVENOUS ONCE TPN (1800 START) Perla Dudley Last Rate: 100 mL/hr at 01/17/18 0730 heparin 1,000 unit/mL 4,000 Units injection 4,000 Units INTRAVENOUS 3 Times weekly with dialysis Troy Godoy 1.4 mL at 01/16/18 1739 amiodarone 360 mg in D5W 200 mL (NEXTERONE) 0.5-1 mg/min INTRAVENOUS CONTINUOUS Paulo (Meter Repair Shop Supervisor) Radu Last Rate: 16.67 mL/hr at 01/17/18 0730 0.5 mg/min at 01/17/18 0730 heparin 5,000 Units injection 5,000 Units SUBCUTANEOUS q 12 H Mervin (Res) Wally 5,000 Units at 01/17/18 1017 ampicillin-sulbactam 3 g in NaCl 0.9% 100 mL MB+ (UNASYN) 3 g INTRAVENOUS q 6 H Chente Whittaker Last Rate: 200 mL/hr at 01/17/18 0457 3 g at 01/17/18 0457 NaCl 0.9% 1,000 mL iv bolus 1,000 mL INTRAVENOUS PRN DIALYSIS Shen Lorenzo prismaSOL BGK 4 K / 2.5 mEq Ca/Liter 5,000 mL 5,000 mL HEMODIALYSIS continuous (no dispense) Shen Lorenzo Last Rate: 700 mL/hr at 01/16/18 1300 5,000 mL at 01/17/18 1019 prismaSOL BGK 4 K / 2.5 mEq Ca/Liter 5,000 mL 5,000 mL HEMODIALYSIS continuous (no dispense) Shen Lorenzo Last Rate: 700 mL/hr at 01/16/18 1300 5,000 mL at 01/17/18 1018 prismaSOL BGK 4 K / 2.5 mEq Ca/Liter 5,000 mL 5,000 mL HEMODIALYSIS continuous (no dispense) Shen Lorenzo Last Rate: 700 mL/hr at 01/16/18 1300 5,000 mL at 01/17/18 1019 dextrose 40 % 15 g 15 g ORAL PRN Jack Regula Or glucagon 1 mg injection (GLUCAGEN) 1 mg INTRAMUSCULAR PRN Jack Regula Or dextrose 50% in water 25 mL syringe 12.5 g INTRAVENOUS PRN Jack Regula magnesium sulfate 1 g in D5W 100 mL 1 g INTRAVENOUS PRN Emilie (Res) Cardella Last Rate: 100 mL/hr at 01/15/18 0016 1 g at 01/15/18 0016 magnesium sulfate in water 2 g in sterile water 50 ml 2 g INTRAVENOUS PRN Emilie (Res) Cardella Last Rate: 25 mL/hr at 01/13/18 1004 2 g at 01/13/18 1004 fentaNYL 20 mcg/mL iv infusion in NaCl 0.9% 100 mL 0-75 mcg/hr INTRAVENOUS CONTINUOUS Dionicio (Res) Stevens Last Rate: 7.5 mL/hr at 01/17/18 0900 150 mcg/hr at 01/17/18 0900 pantoprazole 40 mg injection (PROTONIX) 40 mg INTRAVENOUS DAILY (6 AM) Emilie (Edenilson) Cardella 40 mg at 01/17/18 0457 NORepinephrine 16 mg in D5W 250 mL (LEVOPHED) 0.6-40 mcg/min INTRAVENOUS CONTINUOUS Chente Whittaker Last Rate: 56.25 mL/hr at 01/17/18 1018 60 mcg/min at 01/17/18 1018 Chlorhexidine Gluconate 0.12 % 15 mL (PERIDEX) 15 mL ORAL q 12 H Elder Yu) Kalee 15 mL at 01/17/18 1015 No current [facility]-ordered outpatient prescriptions on file. Vitals: BP (!) 106/47 Pulse 78 Temp (!) 35.1 ?C (95.2 ?F) (Axillary) Resp 18 Ht 172.7 cm (5' 8) Wt 104.2 kg (229 lb 11.5 oz) SpO2 98% BMI 34.93 kg/m? BLOOD PRESSURE RANGE: Systolic (24hrs), Av , Min:93 , Max:195 ; Diastolic (24hrs), Av, Min:44, Max:110 24HR INTAKE/OUTPUT: Intake/Output Summary (Last 24 hours) at 01/17/18 1103 Last data filed at 01/17/18 1000 Gross per 24 hour Intake 4825 ml Output 7289 ml Net -2464 ml Physical exam: Constitutional: Ill appearing. Heent: intubated Cardiovascular: S1, S2 normal Respiratory: Coarse BS bilaterally Abdomen: +bs, soft, nt, nd Ext: 2+ lower extremity edema/anasarca Data: Labs: Recent Labs 01/17/1843401/16/18195401/16/18 1145 WBC 8.70 11.42* 8.26 HB 10.6* 10.3* 10.4* HCT 30.5* 30.1* 29.6* MCV 85.2 84.8 84.1 PLT 59* 65* 46* Recent Labs 01/17/18 0435 01/16/18195401/16/18 04301/15/18 0400 NA 137 137 137 < > 137 K 4.0 3.9 3.9 < > 4.3 CO2 24 24 23 < > 21 MG 2.3 -- 2.2 -- 2.3 BUN 12 11 11 < > 16 CREAT 1.67* 1.83* 1.75* < > 2.10* CA 6.2* 6.9* 6.7* < > 6.4* < > = values in this interval not displayed. Assessment and Plan 1. Acute kidney injury on chronic kidney disease stage 3. Baseline SCr is 1.36 mg/dL on 11/14/17. CKD is likely due to nephrosclerosis related to PAD. TERENCE is 2/2 ischemic ATN from shock. Pt remains anuric. Continue to require pressor support. Effluent dose is adeqaute at 30 ml/kg/min. Unfortunately, his BP dropped today after stopping IVF. UF rate is cut back to keep even. I will discuss fluid management with resident advisor. ? 2. Shock. Likely hemorrhagic shock-massive blood loss from ruptured AAA. Persistent hypotension despite blood product and fluid resuscitation. Unable to remove excess fluid. Pt still has poor oncotic pressure (serum albumin <2.0). Consider checking adrenal function or empiric use of corticosteriod. Will discuss with Dr. Sutton. ? 5. Ruptured AAA. s/p repair 01/12/18. Management as per vascular surgery. ? 6. Acute hypoxic respiratory failure. Ventilator dependent. Vent management as per ICU. O2 requirements are ok although we are having problem removing fluid because of hypotension. See above. Please do not hesitate to contact me at [phone] if there is any question or concern. Rosanna Talbert MD (Shen Lorenzo) Chaplain Serna Chaplain 01/17/2018 11:10 AM Signed SPIRITUALCARE Spiritual Care Visit- Brief Note Name: Naveen Akins Date: January 17, 2018 Notes: Checked in w/pt's family in 3d floor WR--will continue to follow as appropriate. Envelope Stamping Machine Operator Signature: Chaplain Daphne To contact the Spiritual Care Department: Please call [phone] or Page the On-Call Envelope Stamping Machine Operator at pager [phone] Thank you for the opportunity to be of service. This is an electronically created document. IF PRINTED, PLEASE DO NOT REMOVE FROM THE CHART OR MODIFY PRINTED COPY. Steve Rivera RN, RN 01/17/2018 11:21 AM Signed Epic reviewed, pt went to OR yesterday for ex-lap, abdominal washout and wound vac change, plan is to go back to OR today. Remains on ventilator. Costa Miguel MD, BOSSMAN, SALLY 01/17/2018 1:50 PM Signed Discussed patient with Dr. Paniagua. Tentative plan is takeback to OR zm 01/19 to begin closure attempt and vac change. Costa Miguel MD, BOSSMAN, [facility] Wai Barcenas APRN.IRENE 01/17/2018 2:39 PM Signed CARDIOVASCULARSURGERY PROGRESS NOTE SERVICE DATE: 01/17/2018 SERVICE TIME: 2:35 PM Discussed patient with Dr. Sutton, Dr. De La Cruz, and Jose GARDNER. Ok to dc continuous EEG at this time. No seizures noted, but did show severe diffuse encephalopathy. Will attempt to wean Propofol down/off to further assess mental status. Will keep sanchez at this time to closely monitor how much UOP and for concern of penile AND scrotal edema. Plan for surgery on noted. 10 min spent coordinating care. SIGNATURE: Wai Barcenas APRN.IRENE PATIENT NAME: Naveen Akins DATE: January 17, 2018 TIME: 2:35 PM PAGER/CONTACT #: [phone] ETX#[id number] Jaimie Perez RD, RD 01/17/2018 3:23 PM Signed NUTRITION SUPPORT TEAM TOPIC: NUTRITION SUPPORT TEAM PROGRESS NOTE PATIENT NAME: Naveen Akins DATE OF : 1940 DATE: 01/17/2018 Nutritional Status: NO MALNUTRITION IDENTIFIED New HPN Patient? No Interval History: TPN renewed. Weaning pressors. Remains on CVVHD, but sensitive to fluid removal. 01/16 s/p exp lap, wound vac change and washout. Planning to attempt closure this week. Cultures negative. No BM documented. Assessment: Per HPI: This is a 77 year old male transferred in critical condition from [facility] with diagnosed ruptured AAA. [facility] Intubated at outside facility. Per EMS, patient went into cardiac arrest immediately prior to arrival and CPR was initiated. 4 U prbc given prior to arrival. Patient was taken emergently to OR on arrival. CPR was continued en route. ? ACTIVE PROBLEM LIST Gallstone Pancreatitis Ruptured Abdominal Aortic Aneurysm (Aaa) (Hcc) Dic (Disseminated Intravascular Coagulation) (Hcc) Hemorrhagic Shock (Hcc) Acute Respiratory Failure (Hcc) Cardiac Arrest (Hcc) Hypernatremia Hypokalemia Hypomagnesemia Hypophosphatemia Hyperchloremia Encephalopathy Aaa (Abdominal Aortic Aneurysm, Ruptured) (Hcc) Obesity, Class I, Bmi 30-34.9 Recommendations: Daily tpn renewal until bowel fxn adequate Adjust volume as needed for renal plans(currently at 2.4 L) Phos replacement for cvvhd Collaborated with Dr. Dudley Vitals: Temperature Max in 24 hours: Temp (24hrs), Av.9 ?C (96.7 ?F), Min:35.1 ?C (95.2 ?F), Max:36.8 ?C (98.2 ?F) Current Vital Signs: BP 123/51 Pulse 85 Temp 36.1 ?C (97 ?F) (Axillary) Resp 17 Ht 172.7 cm (5' 8) Wt 104.2 kg (229 lb 11.5 oz) SpO2 94% BMI 34.93 kg/m? Current Weight: Weight: 104.2 kg (229 lb 11.5 oz) Intake AND Output: Intake/Output Summary (Last 24 hours) at 01/17/18 1517 Last data filed at 01/17/18 1400 Gross per 24 hour Intake 3824.3 ml Output 8067 ml Net -4242.7 ml Laboratory Data: Recent Labs 01/17/18 0435 01/16/18 1955 01/16/18 0430 01/15/18 1000 01/15/18 0400 01/14/18 1555 NA 137 137 137 < > 135* 137 < > 142 K 4.0 3.9 3.9 < > 4.1 4.3 < > 4.5 CHLOR 106 105 105 < > 104 105 < > 111* CO2 24 24 23 < > 20* 21 < > 22 CREAT 1.67* 1.83* 1.75* < > 1.93* 2.10* < > 2.10* BUN 12 11 11 < > 14 16 < > 17 GLUC 171* 106* 88 < > 134* 112* < > 78 P 3.3 -- 2.5 -- 3.4 1.9* < > -- TPROT -- -- -- -- -- -- -- 3.7* ALB -- -- -- -- -- -- -- 1.7* MG 2.3 -- 2.2 -- -- 2.3 -- -- CA 6.2* 6.9* 6.7* < > 6.3* 6.4* < > 6.4* < > = values in this interval not displayed. Accuchecks: No results found for: PCGLUCOSE Jaimie Perez RD Pager: [phone] Increments: 3 Ariadna Stewart, RN, RN 01/17/2018 9:01 PM Signed 2030 crrt clotted supervisor agricultural education able to return blood/new set up/ arterial and venous line both sluggish but running ART TO ART and trevor to trevor/ flows remain the same/ hemosafe device x2 report to supervisor agricultural education -- Chaplain Arevalo rn, Chaplain 01/18/2018 4:34 AM Signed SPIRITUALCARE Spiritual Care Visit- Brief Note Name: Naveen Akins Date: January 18, 2018 Notes: Visit with family in waiting room.Great support for patient. No coffee available to family. Machine on 4th floor has been broken for days. Notified nurse on 4800. Family thankful for continued visits and prayer. Envelope Stamping Machine Operator Signature: Chaplain Rosendo To contact the [facility] Department: Please call [phone] or Page the On-Call Envelope Stamping Machine Operator at pager [phone] Thank you for the opportunity to be of service. This is an electronically created document. IF PRINTED, PLEASE DO NOT REMOVE FROM THE CHART OR MODIFY PRINTED COPY. Joycelyn Lester, RN, RN 01/18/2018 12:09 AM Signed Called in for pressure pod sensors on CRRT. Noticed problem with access pressure pod. Called [facility] clinical support, with their assistance with trouble shooting system, able to clear the alarm. Blood flow rate currently at 120ml/hr d/t access issues. Also, lines reversed on dialysis catheter for better BFR. [employer] assistance suggested slowly turning up BFR to keep access pressure less than -200. CVICU nurse aware and stated an understanding. Dionicio Stevens MD 01/18/2018 9:56 AM Attested Attestation signed by Venkat Paniagua at 01/22/2018 6:32 PM I saw and evaluated the patient. Discussed with the resident and agree with resident's findings and plan as documented in the resident's note. I again discussed the case at length with the patient's family and discussed the fact that the emergency surgery service will be taking the patient tomorrow to see if we can get part or all of his abdomen closed. I tell him this may require some fascial release her fascial separation and that this would be performed by the emergency general surgery service. The patient has been discussed with the surface they understand our plan and I will be present at the time of surgery if there are any questions or needs from a vascular standpoint. I discussed all of this with the family I still discuss is very guarded prognosis especially in light of the fact that we have seen only limited neurologic activity. The plan would be that once we get this patient's abdomen closed we will have further formal neurologic assessment performed to determine what potential for neurologic outcome is in this setting. Vascular Surgery Progress Note SERVICE DATE: 01/18/2018 Vascular AND Thoracic Surgery Service Pager: For questions or concerns Mon-Fri 6a-5p please page [phone]. After 5pm and on Weekends and Holidays, please page [phone] if in ICU or [phone] if on RNF. Subjective SUBJECTIVE: NAEON, weaning Levo, gently diuresing Diet: DIET NPO Parenteral Nutrition - Adult Objective OBJECTIVE: Vitals: Temp (24hrs), Av.7 ?C (96.3 ?F), Min:35.1 ?C (95.2 ?F), Max:36.1 ?C (97 ?F) BP 170/61 Pulse 75 Temp (!) 35.9 ?C (96.6 ?F) (Temporal Artery) Resp 24 Ht 172.7 cm (5' 8) Wt 104.2 kg (229 lb 11.5 oz) SpO2 95% BMI 34.93 kg/m? O2 Therapy: Ventilator IANDO: Date 01/17/18 07 - 01/18/1859 01/18/18 0700 - 01/19/18 0659 Shift 7226-1397 4665-6790 9273-2941 24 Hour Total 4787-6389 8538-1155 2471-5163 24 Hour Total I N T A K E IV 184 1545 1729 NS 0.9% 94 1000 1094 Fentanyl Volume 15 15 Amiodarone 16 16 NORepinephrine Volume 40 280 320 Propofol IV 19 65 84 Ampicillin/Sulbactam (Unasyn) IV 200 200 TPN/PPN 100 1200 1300 TPN 100 1200 1300 Shift Total 284 2745 3029 O U T P U T Urine 32 28 60 Tube Output ([REMOVED] Indwelling Urinary Catheter 01/12/18 1108 Assessment Temperature Monitoring 16 Fr 01/17/18 1800) 32 28 60 Tubes 8361 402 3722 Drain/Tube Output (Drain/Tube 01/12/18 0100 Hemovac Midline Anterior Abdomen) 8242 651 6753 Drain/Tube Output (Drain/Tube 01/12/18 Fecal Management System) 0 0 0 Output (GI Feed/Drain ) 0 0 0 Dialysis 2138 534 436 7389 Dialysis Output (Ultrafiltration) 2138 031 149 9001 Shift Total 3270 4766 799 0090 Weight (kg) 104.2 104.2 104.2 104.2 104.2 104.2 104.2 104.2 MEDICATIONS Current Facility-Administered Medications: calcium gluconate 4 g in NaCl 0.9% 250 mL 4 g INTRAVENOUS ONCE propofol infusion (DIPRIVAN) 0-15 mcg/kg/min (Adjusted) INTRAVENOUS CONTINUOUS hydrocortisone sodium succinate (PF) 50 mg injection (Solu- CORTEF) 50 mg INTRAVENOUS q 8 H Parenteral Nutrition - Adult INTRAVENOUS ONCE TPN (1800 START) NaCl 0.9% iv infusion 100 mL/hr INTRAVENOUS CONTINUOUS heparin 1,000 unit/mL 4,000 Units injection 4,000 Units INTRAVENOUS 3 Times weekly with dialysis amiodarone 360 mg in D5W 200 mL (NEXTERONE) 0.5-1 mg/min INTRAVENOUS CONTINUO US heparin 5,000 Units injection 5,000 Units SUBCUTANEOUS q 12 H ampicillin-sulbactam 3 g in NaCl 0.9% 100 mL MB+ (UNASYN) 3 g INTRAVENOUS q 6 H NaCl 0.9% 1,000 mL iv bolus 1,000 mL INTRAVENOUS PRN DIALYSIS prismaSOL BGK 4 K / 2.5 mEq Ca/Liter 5,000 mL 5,000 mL HEMODIALYSIS continuous (no dispense) prismaSOL BGK 4 K / 2.5 mEq Ca/Liter 5,000 mL 5,000 mL HEMODIALYSIS continuous (no dispense) prismaSOL BGK 4 K / 2.5 mEq Ca/Liter 5,000 mL 5,000 mL HEMODIALYSIS continuous (no dispense) dextrose 40 % 15 g 15 g ORAL PRN Or glucagon 1 mg injection (GLUCAGEN) 1 mg INTRAMUSCULAR PRN Or dextrose 50% in water 25 mL syringe 12.5 g INTRAVENOUS PRN magnesium sulfate 1 g in D5W 100 mL 1 g INTRAVENOUS PRN magnesium sulfate in water 2 g in sterile water 50 ml 2 g INTRAVENOUS PRN fentaNYL 20 mcg/mL iv infusion in NaCl 0.9% 100 mL 0-75 mcg/hr INTRAVENOUS CONTINUOUS pantoprazole 40 mg injection (PROTONIX) 40 mg INTRAVENOUS DAILY (6 AM) NORepinephrine 16 mg in D5W 250 mL (LEVOPHED) 0.6-40 mcg/min INTRAVENOUS CONTINUOUS Chlorhexidine Gluconate 0.12 % 15 mL (PERIDEX) 15 mL ORAL q 12 H Labs: Recent Labs 01/18/18 0430 01/17/18 1650 01/17/18 1639 01/17/18 1630 01/17/18 1030 01/17/18 0435 01/16/18 0430 01/15/18 1000 01/15/18 0745 NA -- 138 -- -- -- 137 < > 137 < > 135* -- -- K -- 3.9 -- -- -- 4.0 < > 3.9 < > 4.1 -- -- CHLOR -- 104 -- -- -- 106 < > 105 < > 104 -- -- CO2 -- 23 -- -- -- 24 < > 23 < > 20* -- -- BUN -- 11 -- -- -- 12 < > 11 < > 14 -- -- CREAT -- 1.60* -- -- -- 1.67* < > 1.75* < > 1.93* -- -- GLUC -- 186* -- -- -- 171* < > 88 < > 134* -- -- ANION -- 15 -- -- -- 11 < > 13 < > 15 -- -- CA -- 6.9* -- -- -- 6.2* < > 6.7* < > 6.3* -- -- MG -- -- -- -- -- 2.3 -- 2.2 -- -- -- -- P -- -- -- -- -- 3.3 -- 2.5 -- 3.4 < > -- WBC -- -- 9.56* -- 9.99* 8.70 < > 10.93* < > 11.75* -- -- HB -- -- 11.0* -- 11.2* 10.6* < > 11.2* < > 12.2* -- -- HCT -- -- 32.8* -- 32.7* 30.5* < > 32.2* < > 36.0* -- -- PLT -- -- 54* -- 59* 59* < > 56* < > 55* -- -- LACT -- -- -- -- -- -- -- -- -- 1.5 -- -- INR -- -- -- -- -- -- -- -- -- 1.22 -- 1.18 PH 7.342* -- -- 7.335* 7.286* 7.352 < > 7.397 < > 7.427 -- -- PCO2 42.3 -- -- 42.6 51.0* 42.7 < > 35.2* < > 30.7* -- -- PO2 98.3* -- -- 85.6 91.0 78.8* < > 108.6* < > 78.6* -- -- BE -3.1 -- -- -3.5 -3.2 -2.4 < > -3.0 < > -3.8 -- -- < > = values in this interval not displayed. Exam: GENERAL: No distress NEURO: pupils reactive/sluggish, not following commands, withdrawing and opening eyes to pain HEENT: normocephalic, atraumatic, +scleral icterus LUNGS: Unlabored breathing O2 Therapy: Ventilator CARDIAC: Regular rate and rhythm as above ABDOMEN: Soft, mild D, NT, no PS, Vac intact w SS output EXTREMITIES: MAK, No deformities, +Anasarca, palpable pulses SKIN: Skin color, texture, turgor normal, No rashes or lesions ASSESSMENT AND PLAN: Active Hospital Problems Diagnosis Date Noted - Ruptured abdominal aortic aneurysm (AAA) ([facility]) 01/12/2018 - Obesity, Class I, BMI 30-34.9 01/16/2018 - Encephalopathy 01/13/2018 - DIC (disseminated intravascular coagulation) ([facility]) 01/12/2018 - Hemorrhagic shock ([facility]) 01/12/2018 - Acute respiratory failure ([facility]) 01/12/2018 - Cardiac arrest ([facility]) 01/12/2018 - Hypernatremia 01/12/2018 - Hypokalemia 01/12/2018 - Hypomagnesemia 01/12/2018 - Hypophosphatemia 01/12/2018 - Hyperchloremia 01/12/2018 - AAA (abdominal aortic aneurysm, ruptured) ([facility]) 01/12/2018 Overview Note: Added automatically from request for surgery [id number] 77 year old male with Ruptured AAA s/p Emergent Repair, takeback washout, repair of serosal tears x2, on 01/12, hemorrhagic shock, acute resp failure with pulm edema, TERENCE, SVT, s/p Third Look Laparotomy and?washout on 01/14, fourth look, washout, vac change on 01/16 ? - Vent mgmt per MICU - NPO/TPN - Wean Levo as able - Acute blood loss and dilutional anemia and thrombocytopenia - monitor, transfuse prn - q6 labs - Cont Abthera VAC - TERENCE -->?CVVHD per?Nephro, diurese as tolerates - CXR with bilateral pulm edema/effusions, unchanged - Unasyn empirically per MICU - Hypocalcemia?- replacing - Amio per Cards for SVT - cont scrotal support - check hepatic panel OR tomorrow for possible fascial closure, blood products on hold for OR ?? Assessment and plan discussed with attending: Dr. Paniagua SIGNATURE: Dionicio Stevens MD PATIENT NAME: Naveen Akins DATE: January 18, 2018 TIME: 5:03 AM Vascular AND Thoracic Surgery Service Pager: For questions or concerns Mon-Tue 6a-5p please page [phone]. After 5pm and on Weekends and Holidays, please page [phone] if in ICU or [phone] if on RNF. Krystal Jacobson, RN, RN 01/18/2018 10:46 AM Signed CARE MANAGEMENT PROGRESS NOTE SERVICE DATE: 01/18/2018 SERVICE TIME: 10:43 AM LOS: 6 days Notes reviewed. Patient s/p ruptured AAA and s/p emergent repair. Remains on vent. On CVVHD and TPN To OR tomorrow for possible fascial closure. Will continue to follow for transitional needs. SIGNATURE: Krystal Jacobson RN PATIENT NAME: Naveen Akins DATE: January 18, 2018 TIME: 10:43 AM PAGER/CONTACT #: [phone] Mervin Lo MD 01/18/2018 12:27 PM Attested Attestation signed by Costa Miguel at 01/18/2018 12:27 PM I saw and evaluated the patient. I reviewed the resident's note and agree. Costa Miguel MD, FACS, [facility] PROGRESS NOTES SERVICE DATE: 01/18/2018 Subjective SUBJECTIVE: No acute events. Denies N/V/CP/SOB Diet: DIET NPO Parenteral Nutrition - Adult Parenteral Nutrition - Adult Objective OBJECTIVE: Vitals: Temp (24hrs), Av.1 ?C (96.9 ?F), Min:35.9 ?C (96.6 ?F), Max:36.3 ?C (97.3 ?F) BP (!) 101/47 Pulse 67 Temp 36 ?C (96.8 ?F) Resp 18 Ht 172.7 cm (5' 8) Wt 104.2 kg (229 lb 11.5 oz) SpO2 97% BMI 34.93 kg/m? O2 Therapy: Ventilator IANDO: Date 01/17/18699 - 01/18/1865801/18/18699 - 01/19/18 0659 Shift 0852-3528 2232-0575 7660-0261 24 Hour Total 7105-9664 4541-3523 1289-0489 24 Hour Total I N T A K E IV 184 1545 1729 1190.6 1190.6 NS 0.9% 94 1000 1094 Calcium IVPB 250 250 Fentanyl Volume 15 15 71.6 71.6 Amiodarone 16 16 176 176 NORepinephrine Volume 40 280 320 256 256 Propofol IV 19 65 84 37 37 Ampicillin/Sulbactam (Unasyn) IV 200 200 400 400 TPN/PPN 100 1200 1300 1210 1210 TPN 100 1200 1300 1210 1210 Shift Total 284 2745 3029 2400.6 2400.6 O U T P U T Urine 32 28 60 Tube Output ([REMOVED] Indwelling Urinary Catheter 01/12/18 1108 Assessment Temperature Monitoring 16 Fr 01/17/18 1800) 32 28 60 Tubes 1100 1100 1000 3200 450 450 Drain/Tube Output (Drain/Tube 01/12/18 0100 Hemovac Midline Anterior Abdomen) 1100 1100 1000 3200 450 450 Drain/Tube Output (Drain/Tube 01/12/18 Fecal Management System) 0 0 0 0 0 Output (GI Feed/Drain 01/12/18 0100) 0 0 0 0 0 Dialysis 2138 438 268 8972 1068 1068 Dialysis Output (Ultrafiltration) [phone] [id number] 1068 1068 Shift Total 3270 1841 1367 6478 1518 1518 Weight (kg) 104.2 104.2 104.2 104.2 104.2 104.2 104.2 104.2 MEDICATIONS Current Facility-Administered Medications: dexmedetomidine 400 mcg in NaCl 0.9% 100 mL (PRECEDEX) 0.2- 0.7 mcg/kg/hr INTRAVENOUS CONTINUOUS propofol infusion (DIPRIVAN) 0-15 mcg/kg/min (Adjusted) INTRAVENOUS CONTINUOUS hydrocortisone sodium succinate (PF) 50 mg injection (Solu- CORTEF) 50 mg INTRAVENOUS q 8 H Parenteral Nutrition - Adult INTRAVENOUS ONCE TPN (1800 START) NaCl 0.9% iv infusion 100 mL/hr INTRAVENOUS CONTINUOUS heparin 1,000 unit/mL 4,000 Units injection 4,000 Units INTRAVENOUS 3 Times weekly with dialysis amiodarone 360 mg in D5W 200 mL (NEXTERONE) 0.5-1 mg/min INTRAVENOUS CONTINUOUS heparin 5,000 Units injection 5,000 Units SUBCUTANEOUS q 12 H ampicillin-sulbactam 3 g in NaCl 0.9% 100 mL MB+ (UNASYN) 3 g INTRAVENOUS q 6 H NaCl 0.9% 1,000 mL iv bolus 1,000 mL INTRAVENOUS PRN DIALYSIS prismaSOL BGK 4 K / 2.5 mEq Ca/Liter 5,000 mL 5,000 mL HEMODIALYSIS continuous (no dispense) prismaSOL BGK 4 K / 2.5 mEq Ca/Liter 5,000 mL 5,000 mL HEMODIALYSIS continuous (no dispense) prismaSOL BGK 4 K / 2.5 mEq Ca/Liter 5,000 mL 5,000 mL HEMODIALYSIS continuous (no dispense) dextrose 40 % 15 g 15 g ORAL PRN Or glucagon 1 mg injection (GLUCAGEN) 1 mg INTRAMUSCULAR PRN Or dextrose 50% in water 25 mL syringe 12.5 g INTRAVENOUS PRN magnesium sulfate 1 g in D5W 100 mL 1 g INTRAVENOUS PRN magnesium sulfate in water 2 g in sterile water 50 ml 2 g INTRAVENOUS PRN fentaNYL 20 mcg/mL iv infusion in NaCl 0.9% 100 mL 0-75 mcg/hr INTRAVENOUS CONTINUOUS pantoprazole 40 mg injection (PROTONIX) 40 mg INTRAVENOUS DAILY (6 AM) NORepinephrine 16 mg in D5W 250 mL (LEVOPHED) 0.6-40 mcg/min INTRAVENOUS CONTINUOUS Chlorhexidine Gluconate 0.12 % 15 mL (PERIDEX) 15 mL ORAL q 12 H Labs: Recent Labs 01/18/18 1000 01/18/18 0500 01/18/18 0435 01/18/18 0430 01/17/18 1650 01/17/18 1630 01/17/18 0435 NA -- -- 139 -- 138 -- -- -- 137 K -- -- 4.5 -- 3.9 -- -- -- 4.0 CHLOR -- -- 105 -- 104 -- -- -- 106 CO2 -- -- 23 -- 23 -- -- -- 24 BUN -- -- 14 -- 11 -- -- -- 12 CREAT -- -- 1.70* -- 1.60* -- -- -- 1.67* GLUC -- -- 197* -- 186* -- -- -- 171* ANION -- -- 16 -- 15 -- -- -- 11 CA -- -- 6.9* -- 6.9* -- -- -- 6.2* MG -- 2.4 -- -- -- -- -- -- 2.3 P -- 3.8 -- -- -- -- -- -- 3.3 ALB 1.7* -- -- -- -- -- -- -- -- AST 65* -- -- -- -- -- -- -- -- ALT 18 -- -- -- -- -- -- -- -- ALKPHOS 124* -- -- -- -- -- -- -- -- TBILI 4.3* -- -- -- -- -- -- -- -- WBC 9.65* -- 8.14 -- -- < > -- < > 8.70 HB 10.1* -- 10.5* -- -- < > -- < > 10.6* HCT 30.7* -- 31.2* -- -- < > -- < > 30.5* PLT 54* -- 43* -- -- < > -- < > 59* PH -- -- -- 7.342* -- -- 7.335* < > 7.352 PCO2 -- -- -- 42.3 -- -- 42.6 < > 42.7 PO2 -- -- -- 98.3* -- -- 85.6 < > 78.8* BE -- -- -- -3.1 -- -- -3.5 < > -2.4 < > = values in this interval not displayed. Exam: GENERAL: comatose NEURO: sluggish pupils, no withdraw LUNGS: Unlabored breathing O2 Therapy: Ventilator CARDIAC: Regular rate and rhythm as above ABDOMEN: Vac intact w SS output EXTREMITIES: MAK, No deformities, No edema SKIN: Skin color, texture, turgor normal, No rashes or lesions ASSESSMENT AND PLAN: Active Hospital Problems Diagnosis Date Noted - Ruptured abdominal aortic aneurysm (AAA) ([facility]) 01/12/2018 - Obesity, Class I, BMI 30-34.9 01/16/2018 - Encephalopathy 01/13/2018 - DIC (disseminated intravascular coagulation) ([facility]) 01/12/2018 - Hemorrhagic shock ([facility]) 01/12/2018 - Acute respiratory failure ([facility]) 01/12/2018 - Cardiac arrest ([facility]) 01/12/2018 - Hypernatremia 01/12/2018 - Hypokalemia 01/12/2018 - Hypomagnesemia 01/12/2018 - Hypophosphatemia 01/12/2018 - Hyperchloremia 01/12/2018 - AAA (abdominal aortic aneurysm, ruptured) ([facility]) 01/12/2018 Overview Note: Added automatically from request for surgery [id number] 77 year old male with Ruptured AAA s/p Emergent Repair, takeback washout, repair of serosal tears x2, on 01/12, hemorrhagic shock, acute resp failure with pulm edema, TERENCE, SVT, s/p Third Look Laparotomy and?washout on 01/14, fourth look, washout, vac change on 01/16 Neuro status unchanged, minimally responsive Pressors down Continued diuresis, pt tolerating well. Plan OR - for attempted closure Assessment and plan discussed with attending: Myriam SIGNATURE: Mervin Lo MD PATIENT NAME: Naveen Akins DATE: January 18, 2018 TIME: 12:17 PM Pager: [phone] Emergency General Surgery Service Pager: For questions or concerns Mon-Tue 6a-5p please page [phone]. After 5pm and on Weekends and Holidays, please page [phone] if in ICU or [phone] if on RNF. Rosanna Talbert MD 01/18/2018 5:37 PM Signed Nephrology Progress Note Following for TERENCE. Pt is sedated and is on ventilator. Cannot obtain ROS. Current Inpatient Medications: Current Facility-Administered Medications Ordered in Epic: Parenteral Nutrition - Adult INTRAVENOUS ONCE TPN (1800 START) H Edwin Dudley dexmedetomidine 400 mcg in NaCl 0.9% 100 mL (PRECEDEX) 0.2- 0.7 mcg/kg/hr INTRAVENOUS CONTINUOUS Paulo (Meter Repair Shop Supervisor) Radu Last Rate: 2.61 mL/hr at 01/18/18 1200 0.1 mcg/kg/hr at 01/18/18 1200 propofol infusion (DIPRIVAN) 0-15 mcg/kg/min (Adjusted) INTRAVENOUS CONTINUOUS Dionicio (Res) Stevens Stopped at 01/18/18 0850 hydrocortisone sodium succinate (PF) 50 mg injection (Solu- CORTEF) 50 mg INTRAVENOUS q 8 H Shen Lorenzo 50 mg at 01/18/18 1336 Parenteral Nutrition - Adult INTRAVENOUS ONCE TPN (1800 START) H Edwin Dudley Last Rate: 100 mL/hr at 01/18/18 0800 NaCl 0.9% iv infusion 100 mL/hr INTRAVENOUS CONTINUOUS Herman A Herman Stopped at 01/17/18 2000 heparin 1,000 unit/mL 4,000 Units injection 4,000 Units INTRAVENOUS 3 Times weekly with dialysis Troy Godoy 4,000 Units at 01/17/18 2226 amiodarone 360 mg in D5W 200 mL (NEXTERONE) 0.5-1 mg/min INTRAVENOUS CONTINUOUS Paulo (Meter Repair Shop Supervisor) Radu Last Rate: 16.67 mL/hr at 01/18/18 1557 0.5 mg/min at 01/18/18 1557 heparin 5,000 Units injection 5,000 Units SUBCUTANEOUS q 12 H Christopher (Res) Wally 5,000 Units at 01/18/18 1035 ampicillin-sulbactam 3 g in NaCl 0.9% 100 mL MB+ (UNASYN) 3 g INTRAVENOUS q 6 H Chente Whittaker Last Rate: 200 mL/hr at 01/18/18 1145 3 g at 01/18/18 1145 NaCl 0.9% 1,000 mL iv bolus 1,000 mL INTRAVENOUS PRN DIALYSIS Shen Lorenzo prismaSOL BGK 4 K / 2.5 mEq Ca/Liter 5,000 mL 5,000 mL HEMODIALYSIS continuous (no dispense) Shen Lorenzo Last Rate: 700 mL/hr at 01/16/18 1300 5,000 mL at 01/18/18 1146 prismaSOL BGK 4 K / 2.5 mEq Ca/Liter 5,000 mL 5,000 mL HEMODIALYSIS continuous (no dispense) Shen Lorenzo Last Rate: 700 mL/hr at 01/16/18 1300 5,000 mL at 01/18/18 1146 prismaSOL BGK 4 K / 2.5 mEq Ca/Liter 5,000 mL 5,000 mL HEMODIALYSIS continuous (no dispense) Shen Lorenzo Last Rate: 700 mL/hr at 01/16/18 1300 5,000 mL at 01/18/18 1146 dextrose 40 % 15 g 15 g ORAL PRN Jack Regula Or glucagon 1 mg injection (GLUCAGEN) 1 mg INTRAMUSCULAR PRN Jack Regula Or dextrose 50% in water 25 mL syringe 12.5 g INTRAVENOUS PRN Jack Regula magnesium sulfate 1 g in D5W 100 mL 1 g INTRAVENOUS PRN Emilie (Res) Cardella Last Rate: 100 mL/hr at 01/15/18 0016 1 g at 01/15/18 0016 magnesium sulfate in water 2 g in sterile water 50 ml 2 g INTRAVENOUS PRN Emilie (Res) Cardella Last Rate: 25 mL/hr at 01/13/18 1004 2 g at 01/13/18 1004 fentaNYL 20 mcg/mL iv infusion in NaCl 0.9% 100 mL 0-75 mcg/hr INTRAVENOUS CONTINUOUS Dionicio (Res) Stevens Last Rate: 3.75 mL/hr at 01/18/18 0800 75 mcg/hr at 01/18/18 0800 pantoprazole 40 mg injection (PROTONIX) 40 mg INTRAVENOUS DAILY (6 AM) Emilie (Res) Cardella 40 mg at 01/18/18 0649 NORepinephrine 16 mg in D5W 250 mL (LEVOPHED) 0.6-40 mcg/min INTRAVENOUS CONTINUOUS Chente R Cucci Last Rate: 7.5 mL/hr at 01/18/18 1341 8 mcg/min at 01/18/18 1341 Chlorhexidine Gluconate 0.12 % 15 mL (PERIDEX) 15 mL ORAL q 12 H Elder Yu) Kalee 15 mL at 01/18/18 0840 No current Epic-ordered outpatient prescriptions on file. Vitals: BP 121/57 Pulse 70 Temp (!) 35.8 ?C (96.4 ?F) Resp 18 Ht 172.7 cm (5' 8) Wt 104.2 kg (229 lb 11.5 oz) SpO2 98% BMI 34.93 kg/m? BLOOD PRESSURE RANGE: Systolic (24hrs), Av , Min:96 , Max:187 ; Diastolic (24hrs), Av, Min:44, Max:81 24HR INTAKE/OUTPUT: Intake/Output Summary (Last 24 hours) at 01/18/18 1729 Last data filed at 01/18/18 1700 Gross per 24 hour Intake 3600.6 ml Output 5202 ml Net -1601.4 ml Physical exam: Constitutional: Ill appearing. Heent: intubated Cardiovascular: S1, S2 normal Respiratory: Coarse BS bilaterally Abdomen: +bs, soft, nt, nd Ext: 2+ lower extremity edema/anasarca ? Data: Labs: Recent Labs 01/18/18 1000 01/18/18 0435 01/17/18 1639 WBC 9.65* 8.14 9.56* HB 10.1* 10.5* 11.0* HCT 30.7* 31.2* 32.8* MCV 85.5 84.8 85.2 PLT 54* 43* 54* Recent Labs 01/18/18 0500 01/18/18 0435 01/17/18 1650 01/17/18 0435 01/16/18 0430 NA -- 139 138 137 < > 137 K -- 4.5 3.9 4.0 < > 3.9 CO2 -- 23 23 24 < > 23 MG 2.4 -- -- 2.3 -- 2.2 BUN -- 14 11 12 < > 11 CREAT -- 1.70* 1.60* 1.67* < > 1.75* CA -- 6.9* 6.9* 6.2* < > 6.7* < > = values in this interval not displayed. Assessment and Plan 1. Acute kidney injury on chronic kidney disease stage 3. Baseline SCr is 1.36 mg/dL on 11/14/17. CKD is likely due to nephrosclerosis related to PAD. TERENCE is 2/2 ischemic ATN from shock. Pt remains anuric. Continue to require pressor support but decreased amount compared to 01/17/18. Effluent dose is adequate at 26 ml/kg/min (had to decrease Qb on blood pump because of high venous pressure; if this continues, he may need a new or longer dialysis cathteter). UF rate is back to 50 mL/hr since BP is better. ? 2. Shock. Likely hemorrhagic shock-massive blood loss from ruptured AAA. Still on pressor, but decreased requirement. Able to start UF and come down on IVF today without hypotension. So, pt may have relative adrenal insufficiency-continue Solu-cortef. D/w with Dr. Sutton yeswterday. ? 5. Ruptured AAA. s/p repair 01/12/18. Management as per vascular surgery. ? 6. Acute hypoxic respiratory failure. Ventilator dependent. Vent management as per ICU. UF at 50 ml/he. See above. D/w Dr. Paniagua. Please do not hesitate to contact me at [phone] if there is any question or concern. Rosanna Talbert MD (Shen Lorenzo) Chaplain Barbosa Chaplain 01/18/2018 6:21 PM Signed SPIRITUALCARE Spiritual Care Visit- Brief Note Name: Naveen Akins Date: January 18, 2018 Notes: Pre-surgery retail center receptionist visit: Envelope Stamping Machine Operator introduced himself and role/availability to Pt's daughter who was standing at bedside. Pt partially alert and unable to respond verbally. Pt's daughter indicated the Pt has endured 5 previous surgeries and is scheduled for his 6th the following day. Envelope Stamping Machine Operator listened emphatically and confirmed how difficult the journey has been. Pt's daughter stated the family is well supported and has been present around the clock. Envelope Stamping Machine Operator provided spiritual comfort and prayers as desired. Pt's daughter grateful for retail center receptionist visit/prayers and provided retail center receptionist with a hug. Pt/family would benefit from ongoing SC/support. Envelope Stamping Machine Operator to remain available. Envelope Stamping Machine Operator Signature: Chaplain Familia To contact the Spiritual Care Department: Please call [phone] or Page the On-Call Envelope Stamping Machine Operator at pager [phone] Thank you for the opportunity to be of service. This is an electronically created document. IF PRINTED, PLEASE DO NOT REMOVE FROM THE CHART OR MODIFY PRINTED COPY. Herman Sutton MD 01/18/2018 10:07 PM Signed MICU - PROGRESS NOTE SERVICE DATE: 01/18/2018 SERVICE TIME: 10:03 PM Admission Date: 01/12/2018 AGE: [age] year old LOS: 6 days Subjective REASON FOR ICU ADMISSION: Patient remains critically ill, intubated on mechanical ventilation. ? Remains in circulatory shock on pressors but HD better, solucortef started yesterday Still difficult to do SAT as he gets agitated Objective PROBLEMS: ACTIVE PROBLEM LIST Gallstone Pancreatitis Ruptured Abdominal Aortic Aneurysm (Aaa) (Hcc) Dic (Disseminated Intravascular Coagulation) (Hcc) Hemorrhagic Shock (Hcc) Acute Respiratory Failure (Hcc) Cardiac Arrest (Hcc) Hypernatremia Hypokalemia Hypomagnesemia Hypophosphatemia Hyperchloremia Encephalopathy Aaa (Abdominal Aortic Aneurysm, Ruptured) (Hcc) Obesity, Class I, Bmi 30-34.9 PAST MEDICAL HISTORY Diagnosis Date - DIC (disseminated intravascular coagulation) (HCC) 01/12/2018 PAST SURGICAL HISTORY Procedure Laterality Date - LAP CHOLECYSTECT/CHOLANGIOGRAPHY 05-28-09 - REPAIR UMBILICAL NATAN,5+Y/O,REDUC 05-28-09 Social History Marital status: Spouse name: Shelly Years of education: 11 Number of children: 4 Occupational History 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 BP 119/48 Pulse 58 Temp (Src) 96.8 (Axillary) Resp 18 Ht 5' 8 (1.73m) Wt 229 lb 11.5 oz (104.2kg) SpO2 99% BMI 34.94 kg/(m2). Temp (24hrs), Av.1 ?C (96.9 ?F), Min:35.8 ?C (96.4 ?F), Max:36.3 ?C (97.3 ?F) NET FLUID BALANCE Intake/Output Summary (Last 24 hours) at 01/18/18 2203 Last data filed at 01/18/18 1900 Gross per 24 hour Intake 2400.6 ml Output 4656 ml Net -2255.4 ml MEDICATIONS Current Facility-Administered Medications: Parenteral Nutrition - Adult INTRAVENOUS ONCE TPN (1800 START) dexmedetomidine 400 mcg in NaCl 0.9% 100 mL (PRECEDEX) 0.2- 0.7 mcg/kg/hr INTRAVENOUS CONTINUOUS white petrolatum-mineral Oil 83-15 % (LUBRIFRESH P.M.) BOTH EYES PRN propofol infusion (DIPRIVAN) 0-15 mcg/kg/min (Adjusted) INTRAVENOUS CONTINUOUS hydrocortisone sodium succinate (PF) 50 mg injection (Solu- CORTEF) 50 mg INTRAVENOUS q 8 H NaCl 0.9% iv infusion 100 mL/hr INTRAVENOUS CONTINUOUS heparin 1,000 unit/mL 4,000 Units injection 4,000 Units INTRAVENOUS 3 Times weekly with dialysis amiodarone 360 mg in D5W 200 mL (NEXTERONE) 0.5-1 mg/min INTRAVENOUS CONTINUOUS heparin 5,000 Units injection 5,000 Units SUBCUTANEOUS q 12 H ampicillin-sulbactam 3 g in NaCl 0.9% 100 mL MB+ (UNASYN) 3 g INTRAVENOUS q 6 H NaCl 0.9% 1,000 mL iv bolus 1,000 mL INTRAVENOUS PRN DIALYSIS prismaSOL BGK 4 K / 2.5 mEq Ca/Liter 5,000 mL 5,000 mL HEMODIALYSIS continuous (no dispense) prismaSOL BGK 4 K / 2.5 mEq Ca/Liter 5,000 mL 5,000 mL HEMODIALYSIS continuous (no dispense) prismaSOL BGK 4 K / 2.5 mEq Ca/Liter 5,000 mL 5,000 mL HEMODIALYSIS continuous (no dispense) dextrose 40 % 15 g 15 g ORAL PRN Or glucagon 1 mg injection (GLUCAGEN) 1 mg INTRAMUSCULAR PRN Or dextrose 50% in water 25 mL syringe 12.5 g INTRAVENOUS PRN magnesium sulfate 1 g in D5W 100 mL 1 g INTRAVENOUS PRN magnesium sulfate in water 2 g in sterile water 50 ml 2 g INTRAVENOUS PRN fentaNYL 20 mcg/mL iv infusion in NaCl 0.9% 100 mL 0-75 mcg/hr INTRAVENOUS CONTINUOUS pantoprazole 40 mg injection (PROTONIX) 40 mg INTRAVENOUS DAILY (6 AM) NORepinephrine 16 mg in D5W 250 mL (LEVOPHED) 0.6-40 mcg/min INTRAVENOUS CONTINUOUS Chlorhexidine Gluconate 0.12 % 15 mL (PERIDEX) 15 mL ORAL q 12 H Lines, Drains, and Airways Line Central Line Double Lumen 01/12/18 0239 Right Neck 6 days Dialysis / Apheresis Double Lumen 01/13/18 1136 Left Neck 5 days Drain Drain/Tube 01/12/18 0100 Hemovac Midline Anterior Abdomen 6 days Drain/Tube 01/12/18 Fecal Management System 6 days GI Feed/Drain 01/12/18 0100 6 days Airway Airway Endotracheal Tube 01/12/18 1138 6 days PHYSICAL EXAM PERFORMED: General: sedated intubated , no vent dysynchrony Cardiovascular:?Regular rhythm, on amiodarone drip Respiratory:?Rhonchi bilaterally Abdomen: Soft and Nontender Extremities:?Edema-?No??? Neurologic:?Sedated Respiratory/Nursing Documentation: O2 Therapy: Ventilator (01/18/182045) Invasive Ventilator Mode: Pressure Regulated Volume Control (01/18/182045) Set Ventilator Respiratory Rate (BPM): 18 (01/18/182045) Total Respiratory Rate (BPM): 18 (01/18/182045) Tidal Volume Set (mL): 500 (01/18/182045) Exhaled Tidal Volume (mL): 521 (01/18/182045) Minute Volume (L): 9.9 (01/18/182045) Peak Inspiratory Pressure (cm H2O): 20 (01/18/182045) PEEP/CPAP (cm H2O): 5 (01/18/182045) HEMODYNAMIC DATA: Reviewed NUTRITION: TPN DATA: Diagnostic tests reviewed for today's visit, films/specimens were personally reviewed by me: Most recent labs and imaging results. LABS: Recent Labs 01/18/18 1630 01/18/18 1000 01/18/18 0500 WBC 8.87 9.65* -- RBC 3.41* 3.59* -- HB 9.4* 10.1* -- HCT 29.1* 30.7* -- MCV 85.3 85.5 -- PLT 55* 54* -- GLUC 250* -- -- BUN 16 -- -- CREAT 1.57* -- -- NA 138 -- -- K 4.6 -- -- CHLOR 106 -- -- CO2 23 -- -- TPROT -- 4.8* -- ALB -- 1.7* -- CA 6.6* -- -- ALKPHOS -- 124* -- TBILI -- 4.3* -- AST -- 65* -- ALT -- 18 -- MG -- -- 2.4 ABG: Recent Labs 01/18/18 0430 01/17/18 1630 01/17/18 1030 PH 7.342* 7.335* 7.286* PO2 98.3* 85.6 91.0 PCO2 42.3 42.6 51.0* Assessment/Plan IMPRESSION: PROBLEMS: Ruptured AAA s/p surgical repair s/p Cardiac Arrest Persistent Circulatory Shock Acute Hypoxic Respiratory Failure on mechanical ventilation Encephalopathy??? TERENCE on CKD?- Suspected ATN - On CRRT Lactic Acidosis - Resolved Sinus Tachycardia Thrombocytopenia SVT - Resolved MMP ? PLANS FOR TODAY: ? Continue?mechanical ventilation, adjust as needed,, no dysynchrony Wean pressors as tolerated, goal MAP > 65mmHg Cultures negative, remains on unasyn empirically. Will stop propofol and switch to precedex, HD better with hydrocortisone EEG impressive for severe encephalopathy, no evidence of epileptiform activity/seizures SAT daily AAA management/post-operative care per vascular surgery Continue w/ amiodarone gtt, monitor rhythm. ?No further runs of SVT Cardiology consulted, appreciate recs Continue TPN SCDs/PPI/ Heparin SQ per primary team Guarded prgnosis ? Critical Care Documentation:?The patient has the following organ/system impairment(s): ?Circulatory shock, Complex life-threatening ?medical problem(s) and Respiratory failure (Acute, with Hypoxemia) ? ? This patient has a high probability of sudden, clinically significant deterioration, which requires the highest level of physician preparedness to intervene urgently. ?I managed/supervised life or organ supporting interventions that required frequent physician assessment. ?I devoted my full attention to the direct care of this patient for the amount of time indicated below. ?Time I spent with family or surrogate(s) is included only if the patient was incapable of providing the necessary information or participating in medical decision making. ?Time devoted to teaching is not included. ? Critical Care Time devoted to this patient is ?30 minutes SIGNATURE: Herman Sutton MD PATIENT NAME: Naveen Akins DATE: January 18, 2018 TIME: 10:03 PM Costa Miguel MD, [facility], [facility] 01/20/2018 4:15 PM Signed [facility] - Operative Report SURGEON: Costa Miguel MD PATIENT NAME: NAVEEN AKINS CSN: [id number] DATE OF SURGERY: 01/19/2018 DATE OF : 1940 SEX/AGE: M/77 PATIENT TYPE: I HOSP SVC: LICO LOCATION: [id number] DATE OF SURGERY: 01/19/2018 SURGEON: Costa Miguel MD PREOPERATIVE DIAGNOSIS: Open abdomen status post rupture of aneurysm. POSTOPERATIVE DIAGNOSIS: Open abdomen status post rupture of aneurysm. PROCEDURE: Exploratory laparotomy, partial closure of open abdomen and placement of ABThera wound VAC. VISUAL ARTS TEACHER: Hermelinda Ferrell MD; and Hailey, neurosurgical physician assistant. ANESTHESIA: General. INDICATIONS: Open abdomen, critically ill patient, status post multiple wound VAC changes. Plan is to try and attempt closure today. Risks, benefits, and options were discussed. DETAILS OF PROCEDURE: The patient was taken to the operating room, prepared in usual fashion, anesthetized, prepped and draped. The old wound VAC was removed. We performed exploration running the bowel from the ligament of Treitz to the colon. There was evident of repair in ligament of Treitz that was intact. There were no concerns. The colon was visualized in its entirety, appeared normal. Stomach was visualized as was the liver. We irrigated the abdomen in all 4 quadrants with saline. There was minimal debris. We placed the omentum back over the bowel and then we started closing superiorly initially with [id number] sutures of #1 PDS, switching to running looped #1 PDS, placing retention sutures of 5-0 Ethibond as we went along. Two retention sutures were placed superiorly. We began inferiorly, in the same fashion placed 1 retention suture and ran it to #1 looped PDS. The patient began to have issues with saturation and blood pressure, so we decided not to close them entirely. We left the small segment, probably 6 inches left open, replaced the wound VAC in a standard fashion, and this area had no leak. The patient was taken back to the CVICU in critical condition. He tolerated the procedure generally well. I was present for the critical and coleman portions of the surgery and I was immediately available to provide assistance. Costa Miguel MD Surgery [email or web address]:modl /[id number] Previous Version Dionicio Stevens MD 01/19/2018 8:48 AM Signed Vascular Surgery Progress Note SERVICE DATE: 01/19/2018 Vascular AND Thoracic Surgery Service Pager: For questions or concerns Mon-Fri 6a-5p please page [phone]. After 5pm and on Weekends and Holidays, please page [phone] if in ICU or [phone] if on RNF. Subjective SUBJECTIVE: NAEON, weaning Levo, Precedex started --> patient fighting vent and biting down on ETT Diet: DIET NPO Parenteral Nutrition - Adult Objective OBJECTIVE: Vitals: Temp (24hrs), Av ?C (96.8 ?F), Min:35.8 ?C (96.4 ?F), Max:36.3 ?C (97.3 ?F) BP 128/64 Pulse (!) 58 Temp 36 ?C (96.8 ?F) Resp 18 Ht 172.7 cm (5' 8) Wt 104.2 kg (229 lb 11.5 oz) SpO2 99% BMI 34.93 kg/m? O2 Therapy: Ventilator IANDO: Date 01/18/18 07 - 01/19/18 0659 01/19/18 07 - 01/20/18 0659 Shift 3158-4970 5735-9485 5400-4542 24 Hour Total 1665-2740 0400-4160 4503-2989 24 Hour Total I N T A K E IV 1190.6 1190.6 Calcium IVPB 250 250 Fentanyl Volume 71.6 71.6 Amiodarone 176 176 NORepinephrine Volume 256 256 Propofol IV 37 37 Ampicillin/Sulbactam (Unasyn) IV 400 400 TPN/PPN 1210 1210 TPN 1210 1210 Shift Total 2400.6 2400.6 O U T P U T Tubes 650 270 920 Drain/Tube Output (Drain/Tube 01/12/18 0100 Hemovac Midline Anterior Abdomen) 650 250 900 Drain/Tube Output (Drain/Tube 01/12/18 Fecal Management System) 0 20 20 Output (GI Feed/Drain 01/12/18 0100) 0 0 Dialysis 1647 087 760 2317 Dialysis Output (Ultrafiltration) 1647 067 027 0245 Shift Total 2297 2287 234 2456 Weight (kg) 104.2 104.2 104.2 104.2 104.2 104.2 104.2 104.2 MEDICATIONS Current Facility-Administered Medications: Parenteral Nutrition - Adult INTRAVENOUS ONCE TPN (1800 START) dexmedetomidine 400 mcg in NaCl 0.9% 100 mL (PRECEDEX) 0.2- 0.7 mcg/kg/hr INTRAVENOUS CONTINUOUS white petrolatum-mineral Oil 83-15 % (LUBRIFRESH P.M.) BOTH EYES PRN propofol infusion (DIPRIVAN) 0-15 mcg/kg/min (Adjusted) INTRAVENOUS CONTINUOUS hydrocortisone sodium succinate (PF) 50 mg injection (Solu- CORTEF) 50 mg INTRAVENOUS q 8 H NaCl 0.9% iv infusion 100 mL/hr INTRAVENOUS CONTINUOUS heparin 1,000 unit/mL 4,000 Units injection 4,000 Units INTRAVENOUS 3 Times weekly with dialysis heparin 5,000 Units injection 5,000 Units SUBCUTANEOUS q 12 H ampicillin-sulbactam 3 g in NaCl 0.9% 100 mL MB+ (UNASYN) 3 g INTRAVENOUS q 6 H NaCl 0.9% 1,000 mL iv bolus 1,000 mL INTRAVENOUS PRN DIALYSIS prismaSOL BGK 4 K / 2.5 mEq Ca/Liter 5,000 mL 5,000 mL HEMODIALYSIS continuous (no dispense) prismaSOL BGK 4 K / 2.5 mEq Ca/Liter 5,000 mL 5,000 mL HEMODIALYSIS continuous (no dispense) prismaSOL BGK 4 K / 2.5 mEq Ca/Liter 5,000 mL 5,000 mL HEMODIALYSIS continuous (no dispense) dextrose 40 % 15 g 15 g ORAL PRN Or glucagon 1 mg injection (GLUCAGEN) 1 mg INTRAMUSCULAR PRN Or dextrose 50% in water 25 mL syringe 12.5 g INTRAVENOUS PRN magnesium sulfate 1 g in D5W 100 mL 1 g INTRAVENOUS PRN magnesium sulfate in water 2 g in sterile water 50 ml 2 g INTRAVENOUS PRN fentaNYL 20 mcg/mL iv infusion in NaCl 0.9% 100 mL 0-75 mcg/hr INTRAVENOUS CONTINUOUS pantoprazole 40 mg injection (PROTONIX) 40 mg INTRAVENOUS DAILY (6 AM) NORepinephrine 16 mg in D5W 250 mL (LEVOPHED) 0.6-40 mcg/min INTRAVENOUS CONTINUOUS Chlorhexidine Gluconate 0.12 % 15 mL (PERIDEX) 15 mL ORAL q 12 H Labs: Recent Labs 01/19/18 0450 01/18/18 2305 01/18/18 1630 01/18/18 1000 01/18/18 0500 01/18/18 0430 01/17/18 1630 01/17/18 0435 NA 139 -- 138 -- -- < > -- < > -- -- 137 K 4.3 -- 4.6 -- -- < > -- < > -- -- 4.0 CHLOR 105 -- 106 -- -- < > -- < > -- -- 106 CO2 25 -- 23 -- -- < > -- < > -- -- 24 BUN 22* -- 16 -- -- < > -- < > -- -- 12 CREAT 1.63* -- 1.57* -- -- < > -- < > -- -- 1.67* GLUC 215* -- 250* -- -- < > -- < > -- -- 171* ANION 13 -- 14 -- -- < > -- < > -- -- 11 CA 7.0* -- 6.6* -- -- < > -- < > -- -- 6.2* MG -- -- -- -- 2.4 -- -- -- -- -- 2.3 P -- -- -- -- 3.8 -- -- -- -- -- 3.3 ALB -- -- -- 1.7* -- -- -- -- -- -- -- AST -- -- -- 65* -- -- -- -- -- -- -- ALT -- -- -- 18 -- -- -- -- -- -- -- ALKPHOS -- -- -- 124* -- -- -- -- -- -- -- TBILI -- -- -- 4.3* -- -- -- -- -- -- -- WBC 8.08 8.35 8.87 9.65* -- < > -- < > -- < > 8.70 HB 9.5* 9.2* 9.4* 10.1* -- < > -- < > -- < > 10.6* HCT 28.5* 27.6* 29.1* 30.7* -- < > -- < > -- < > 30.5* PLT 56* 56* 55* 54* -- < > -- < > -- < > 59* PH -- -- -- -- -- -- 7.342* -- 7.335* < > 7.352 PCO2 -- -- -- -- -- -- 42.3 -- 42.6 < > 42.7 PO2 -- -- -- -- -- -- 98.3* -- 85.6 < > 78.8* BE -- -- -- -- -- -- -3.1 -- -3.5 < > -2.4 < > = values in this interval not displayed. Exam: GENERAL: No distress NEURO: pupils reactive/sluggish, not following commands, withdrawing and opening eyes to pain HEENT: normocephalic, atraumatic, +scleral icterus LUNGS: Unlabored breathing O2 Therapy: Ventilator CARDIAC: Regular rate and rhythm as above ABDOMEN: Soft, mild D, NT, no PS, Vac intact w SS output EXTREMITIES: MAK, No deformities, +Anasarca, palpable pulses SKIN: Skin color, texture, turgor normal, No rashes or lesions ASSESSMENT AND PLAN: Active Hospital Problems Diagnosis Date Noted - Ruptured abdominal aortic aneurysm (AAA) ([facility]) 01/12/2018 - Obesity, Class I, BMI 30-34.9 01/16/2018 - Encephalopathy 01/13/2018 - DIC (disseminated intravascular coagulation) ([facility]) 01/12/2018 - Hemorrhagic shock ([facility]) 01/12/2018 - Acute respiratory failure ([facility]) 01/12/2018 - Cardiac arrest ([facility]) 01/12/2018 - Hypernatremia 01/12/2018 - Hypokalemia 01/12/2018 - Hypomagnesemia 01/12/2018 - Hypophosphatemia 01/12/2018 - Hyperchloremia 01/12/2018 - AAA (abdominal aortic aneurysm, ruptured) ([facility]) 01/12/2018 Overview Note: Added automatically from request for surgery [id number] 77 year old male with Ruptured AAA s/p Emergent Repair, takeback washout, repair of serosal tears x2, on 01/12, hemorrhagic shock, acute resp failure with pulm edema, TERENCE, SVT, s/p Third Look Laparotomy and?washout on 01/14, fourth look, washout, vac change on 01/16 ? - Vent mgmt per MICU - NPO/TPN - Wean Levo as able - Acute blood loss and dilutional anemia and thrombocytopenia - monitor, transfuse prn - q6 labs - Cont Abthera VAC - TERENCE -->?CVVHD per?Nephro, diurese as tolerates - CXR with bilateral pulm edema/effusions, improving on left - Unasyn empirically per MICU - Hypocalcemia and phosphatemia?- replacing - Amio per Cards for SVT - cont scrotal support - Hyperbilirubinemia - likely transfusion related, consider RUQ US if fevers develop and LFTs/jaundice worsen ? OR this am for possible fascial closure, blood products on hold ?? Assessment and plan discussed with attending: Dr. Paniagua SIGNATURE: Dionicio Stevens MD PATIENT NAME: Naveen Akins DATE: January 19, 2018 TIME: 6:24 AM Vascular AND Thoracic Surgery Service Pager: For questions or concerns Tue-Tue 6a-5p please page [phone]. After 5pm and on Weekends and Holidays, please page [phone] if in ICU or [phone] if on RNF. Mervin Lo MD 01/19/2018 9:02 AM Attested Attestation signed by Costa Miguel at 01/19/2018 1:43 PM I saw and evaluated the patient. I reviewed the resident's note and agree. Costa Miguel MD, [facility], [facility] PROGRESS NOTES SERVICE DATE: 01/19/2018 Subjective SUBJECTIVE: Bradycardia overnight. amio stopped Still diuresing. Pressors weaning. Denies N/V/CP/SOB Diet: DIET NPO Parenteral Nutrition - Adult Parenteral Nutrition - Adult Objective OBJECTIVE: Vitals: Temp (24hrs), Av.8 ?C (96.4 ?F), Min:35.5 ?C (95.9 ?F), Max:36 ?C (96.8 ?F) BP 132/57 Pulse 80 Temp (!) 35.5 ?C (95.9 ?F) Resp 20 Ht 172.7 cm (5' 8) Wt 104.2 kg (229 lb 11.5 oz) SpO2 93% BMI 34.93 kg/m? O2 Therapy: Ventilator IANDO: Date 01/18/18 0700 - 01/19/18 0659 01/19/18 07 - 01/20/18 0659 Shift 6569-6827 0048-4363 3043-9726 24 Hour Total 8106-9969 0888-5730 2714-6324 24 Hour Total I N T A K E IV 1190.6 157.6 1348.2 Calcium IVPB 250 250 Fentanyl Volume 71.6 89.6 161.2 Amiodarone 176 176 NORepinephrine Volume 256 68 324 Propofol IV 37 37 Ampicillin/Sulbactam (Unasyn) IV 400 400 TPN/PPN 1210 1210 TPN 1210 1210 Shift Total 2400.6 157.6 2558.2 O U T P U T Tubes 650 312 989 0886 Drain/Tube Output (Drain/Tube 01/12/18 0100 Hemovac Midline Anterior Abdomen) 650 484 135 1660 Drain/Tube Output (Drain/Tube 01/12/18 Fecal Management System) 0 20 20 Output (GI Feed/Drain 01/12/18 0100) 0 0 Dialysis 1647 524 599 2265 Dialysis Output (Ultrafiltration) 1647 088 293 9538 Shift Total 2297 7988 008 8642 Weight (kg) 104.2 104.2 104.2 104.2 104.2 104.2 104.2 104.2 MEDICATIONS Current Facility-Administered Medications: [MAR Hold due to Transfer] carboxymethylcellulose sodium 1- 2 Drop (CELLUVISC) 1-2 Drop BOTH EYES PRN [MAR Hold due to Transfer] calcium gluconate 4 g in NaCl 0.9% 250 mL 4 g INTRAVENOUS ONCE [MAR Hold due to Transfer] sodium phosphate 45 mmol in D5W 250 mL 45 mmol INTRAVENOUS ONCE [MAR Hold due to Transfer] Parenteral Nutrition - Adult INTRAVENOUS ONCE TPN (1800 START) [MAR Hold due to Transfer] dexmedetomidine 400 mcg in NaCl 0.9% 100 mL (PRECEDEX) 0.2-0.7 mcg/kg/hr INTRAVENOUS CONTINUOUS [MAR Hold due to Transfer] propofol infusion (DIPRIVAN) 0- 15 mcg/kg/min (Adjusted) INTRAVENOUS CONTINUOUS [MAR Hold due to Transfer] hydrocortisone sodium succinate (PF) 50 mg injection (Solu-CORTEF) 50 mg INTRAVENOUS q 8 H [MAR Hold due to Transfer] NaCl 0.9% iv infusion 100 mL/hr INTRAVENOUS CONTINUOUS [MAR Hold due to Transfer] heparin 1,000 unit/mL 4,000 Units injection 4,000 Units INTRAVENOUS 3 Times weekly with dialysis [MAR Hold due to Transfer] heparin 5,000 Units injection 5,000 Units SUBCUTANEOUS q 12 H [MAR Hold due to Transfer] ampicillin-sulbactam 3 g in NaCl 0.9% 100 mL MB+ (UNASYN) 3 g INTRAVENOUS q 6 H [MAR Hold due to Transfer] NaCl 0.9% 1,000 mL iv bolus 1,000 mL INTRAVENOUS PRN DIALYSIS [MAR Hold due to Transfer] prismaSOL BGK 4 K / 2.5 mEq Ca/Liter 5,000 mL 5,000 mL HEMODIALYSIS continuous (no dispense) [MAR Hold due to Transfer] prismaSOL BGK 4 K / 2.5 mEq Ca/Liter 5,000 mL 5,000 mL HEMODIALYSIS continuous (no dispense) [MAR Hold due to Transfer] prismaSOL BGK 4 K / 2.5 mEq Ca/Liter 5,000 mL 5,000 mL HEMODIALYSIS continuous (no dispense) [MAR Hold due to Transfer] dextrose 40 % 15 g 15 g ORAL PRN Or [MAR Hold due to Transfer] glucagon 1 mg injection (GLUCAGEN) 1 mg INTRAMUSCULAR PRN Or [MAR Hold due to Transfer] dextrose 50% in water 25 mL syringe 12.5 g INTRAVENOUS PRN [MAR Hold due to Transfer] magnesium sulfate 1 g in D5W 100 mL 1 g INTRAVENOUS PRN [MAR Hold due to Transfer] magnesium sulfate in water 2 g in sterile water 50 ml 2 g INTRAVENOUS PRN [MAR Hold due to Transfer] fentaNYL 20 mcg/mL iv infusion in NaCl 0.9% 100 mL 0-75 mcg/hr INTRAVENOUS CONTINUOUS [MAR Hold due to Transfer] pantoprazole 40 mg injection (PROTONIX) 40 mg INTRAVENOUS DAILY (6 AM) [MAR Hold due to Transfer] NORepinephrine 16 mg in D5W 250 mL (LEVOPHED) 0.6-40 mcg/min INTRAVENOUS CONTINUOUS [MAR Hold due to Transfer] Chlorhexidine Gluconate 0.12 % 15 mL (PERIDEX) 15 mL ORAL q 12 H Labs: Recent Labs 01/19/18 0450 01/18/18 2305 01/18/18 1630 01/18/18 1000 01/18/18 0500 01/18/18 0430 01/17/18 1630 NA 139 -- 138 -- -- < > -- < > -- K 4.3 -- 4.6 -- -- < > -- < > -- CHLOR 105 -- 106 -- -- < > -- < > -- CO2 25 -- 23 -- -- < > -- < > -- BUN 22* -- 16 -- -- < > -- < > -- CREAT 1.63* -- 1.57* -- -- < > -- < > -- GLUC 215* -- 250* -- -- < > -- < > -- ANION 13 -- 14 -- -- < > -- < > -- CA 7.0* -- 6.6* -- -- < > -- < > -- MG 2.6 -- -- -- 2.4 -- -- -- -- P 2.7 -- -- -- 3.8 -- -- -- -- ALB -- -- -- 1.7* -- -- -- -- -- AST -- -- -- 65* -- -- -- -- -- ALT -- -- -- 18 -- -- -- -- -- ALKPHOS -- -- -- 124* -- -- -- -- -- TBILI -- -- -- 4.3* -- -- -- -- -- WBC 8.08 8.35 8.87 9.65* -- < > -- < > -- HB 9.5* 9.2* 9.4* 10.1* -- < > -- < > -- HCT 28.5* 27.6* 29.1* 30.7* -- < > -- < > -- PLT 56* 56* 55* 54* -- < > -- < > -- PH -- -- -- -- -- -- 7.342* -- 7.335* PCO2 -- -- -- -- -- -- 42.3 -- 42.6 PO2 -- -- -- -- -- -- 98.3* -- 85.6 BE -- -- -- -- -- -- -3.1 -- -3.5 < > = values in this interval not displayed. Exam: GENERAL: comatose NEURO: sluggish pupils, no withdraw LUNGS: Unlabored breathing O2 Therapy: Ventilator CARDIAC: Regular rate and rhythm as above ABDOMEN: Vac intact w SS output EXTREMITIES: MAK, No deformities, No edema SKIN: Skin color, texture, turgor normal, No rashes or lesions ASSESSMENT AND PLAN: Active Hospital Problems Diagnosis Date Noted - Ruptured abdominal aortic aneurysm (AAA) ([facility]) 01/12/2018 - Obesity, Class I, BMI 30-34.9 01/16/2018 - Encephalopathy 01/13/2018 - DIC (disseminated intravascular coagulation) ([facility]) 01/12/2018 - Hemorrhagic shock ([facility]) 01/12/2018 - Acute respiratory failure ([facility]) 01/12/2018 - Cardiac arrest ([facility]) 01/12/2018 - Hypernatremia 01/12/2018 - Hypokalemia 01/12/2018 - Hypomagnesemia 01/12/2018 - Hypophosphatemia 01/12/2018 - Hyperchloremia 01/12/2018 - AAA (abdominal aortic aneurysm, ruptured) ([facility]) 01/12/2018 Overview Note: Added automatically from request for surgery [id number] 77 year old male with Ruptured AAA s/p Emergent Repair, takeback washout, repair of serosal tears x2, on 01/12, hemorrhagic shock, acute resp failure with pulm edema, TERENCE, SVT, s/p Third Look Laparotomy and?washout on 01/14, fourth look, washout, vac change on 01/16 ? Neuro status unchanged, minimally responsive Pressors still weaning Continued diuresis, pt tolerating well. Plan OR today for attempted closure ? Assessment and plan discussed with attending: Myriam SIGNATURE: Mervin Lo MD PATIENT NAME: Naveen Akins DATE: January 19, 2018 TIME: 9:01 AM Pager: [phone] Emergency General Surgery Service Pager: For questions or concerns Mon-Fri 6a-5p please page [phone]. After 5pm and on Weekends and Holidays, please page [phone] if in ICU or [phone] if on RNF. Hermelinda Ferrell MD 01/19/2018 10:28 AM Signed BRIEF OPERATIVE / PROCEDURE NOTE LOG ID: [id number] Patient Name:Naveen Akins CSN: [id number] Surgery/Procedure Date: 01/19/2018 Incision/Procedure Start Time: 9:00 AM Incision Close/Procedure End Time: Surgeon(s)/Proceduralist(s) and Industrial Laborer(s): Surgeon(s) and Role: * Venkat Paniagua - Primary * Costa Miguel - Assisting * Hermelinda Ferrell - Resident - Assisting Dyed Yarn Operator: Hailey Dixon SA Procedure(s): Procedure(s) (LRB): EXPLORATORY LAPAROTOMY, WASHOUT, PARTIAL ABDOMINAL CLOSURE, WOUND VAC PLACEMENT Anesthesia: General ASA Class: Findings: viable bowel Estimated Blood Loss: 50 mls Specimens: None Complications: None * No complications entered in OR log * Pre-Op/Pre-Procedure Diagnosis: open abdomen Post-Op/Post-Procedure Diagnosis: open abdomen SIGNATURE: Hermelinda Ferrell MD PATIENT NAME: Naveen Akins DATE: January 19, 2018 TIME: 10:26 AM PAGER/CONTACT #: [phone] Chaplain Serna Chaplain 01/19/2018 11:32 AM Signed [facility] Spiritual Care Visit- Brief Note Name: Naveen Akins Date: January 19, 2018 Notes: Checked in w/fam in 3d fl WR--pt is out of surgery and in recovery. Empathetic listening; ministry of presence. Envelope Stamping Machine Operator Signature: Chaplain Daphne To contact the Spiritual Care Department: Please call [phone] or Page the On-Call Envelope Stamping Machine Operator at pager [phone] Thank you for the opportunity to be of service. This is an electronically created document. IF PRINTED, PLEASE DO NOT REMOVE FROM THE CHART OR MODIFY PRINTED COPY. Rosanna Talbert MD 01/19/2018 12:41 PM Signed Nephrology Progress Note Following for TERENCE. Pt is sedated and is on ventilator. Cannot obtain ROS. S/p aprtial closure of abdominal incision. Current Inpatient Medications: Current Facility-Administered Medications Ordered in Epic: carboxymethylcellulose sodium 1-2 Drop (CELLUVISC) 1-2 Drop BOTH EYES PRN Venkat Paniagua calcium gluconate 4 g in NaCl 0.9% 250 mL 4 g INTRAVENOUS ONCE Dionicio (Res) Stevens sodium phosphate 45 mmol in D5W 250 mL 45 mmol INTRAVENOUS ONCE Dionicio (Res) Stevens Parenteral Nutrition - Adult INTRAVENOUS ONCE TPN (1800 START) H Edwin Dudley dexmedetomidine 400 mcg in NaCl 0.9% 100 mL (PRECEDEX) 0-0.7 mcg/kg/hr INTRAVENOUS CONTINUOUS Dionicio (Res) Stevens Parenteral Nutrition - Adult INTRAVENOUS ONCE TPN (1800 START) H Edwin Dudley Last Rate: 100 mL/hr at 01/19/18 0800 propofol infusion (DIPRIVAN) 0-15 mcg/kg/min (Adjusted) INTRAVENOUS CONTINUOUS Dionicio (Res) Stevens Stopped at 01/18/18 0850 hydrocortisone sodium succinate (PF) 50 mg injection (Solu- CORTEF) 50 mg INTRAVENOUS q 8 H Shen Lorenzo 50 mg at 01/19/18 0621 heparin 1,000 unit/mL 4,000 Units injection 4,000 Units INTRAVENOUS 3 Times weekly with dialysis Troy Godoy 4,000 Units at 01/17/18 2226 heparin 5,000 Units injection 5,000 Units SUBCUTANEOUS q 12 H Mervin (Res) Wally 5,000 Units at 01/18/18 2142 ampicillin-sulbactam 3 g in NaCl 0.9% 100 mL MB+ (UNASYN) 3 g INTRAVENOUS q 6 H Chente Whittaker Last Rate: 200 mL/hr at 01/19/18 0505 3 g at 01/19/18 0505 NaCl 0.9% 1,000 mL iv bolus 1,000 mL INTRAVENOUS PRN DIALYSIS Shen Lorenzo prismaSOL BGK 4 K / 2.5 mEq Ca/Liter 5,000 mL 5,000 mL HEMODIALYSIS continuous (no dispense) Shen Lorenzo Last Rate: 700 mL/hr at 01/16/18 1300 5,000 mL at 01/18/18 1747 prismaSOL BGK 4 K / 2.5 mEq Ca/Liter 5,000 mL 5,000 mL HEMODIALYSIS continuous (no dispense) Shen Lorenzo Last Rate: 700 mL/hr at 01/16/18 1300 5,000 mL at 01/18/18 1747 prismaSOL BGK 4 K / 2.5 mEq Ca/Liter 5,000 mL 5,000 mL HEMODIALYSIS continuous (no dispense) Shen Lorenzo Last Rate: 700 mL/hr at 01/16/18 1300 5,000 mL at 01/18/18 1747 dextrose 40 % 15 g 15 g ORAL PRN Jack Regula Or glucagon 1 mg injection (GLUCAGEN) 1 mg INTRAMUSCULAR PRN Jack Regula Or dextrose 50% in water 25 mL syringe 12.5 g INTRAVENOUS PRN Jack Regula magnesium sulfate 1 g in D5W 100 mL 1 g INTRAVENOUS PRN Emilie (Res) Cardella Last Rate: 100 mL/hr at 01/15/18 0016 1 g at 01/15/18 0016 magnesium sulfate in water 2 g in sterile water 50 ml 2 g INTRAVENOUS PRN Emilie (Res) Cardella Last Rate: 25 mL/hr at 01/13/18 1004 2 g at 01/13/18 1004 fentaNYL 20 mcg/mL iv infusion in NaCl 0.9% 100 mL 0-75 mcg/hr INTRAVENOUS CONTINUOUS Dionicio (Res) Stevens Last Rate: 3.75 mL/hr at 01/19/18 0800 75 mcg/hr at 01/19/18 0800 pantoprazole 40 mg injection (PROTONIX) 40 mg INTRAVENOUS DAILY (6 AM) Emilie (Res) Cardella 40 mg at 01/19/18 0506 NORepinephrine 16 mg in D5W 250 mL (LEVOPHED) 0-30 mcg/min INTRAVENOUS CONTINUOUS Dionicio (Res) Stevens Last Rate: 3.75 mL/hr at 01/19/18 0800 4 mcg/min at 01/19/18 0800 Chlorhexidine Gluconate 0.12 % 15 mL (PERIDEX) 15 mL ORAL q 12 H Elder Yu) Kalee 15 mL at 01/18/18 2142 No current [facility]-ordered outpatient prescriptions on file. Vitals: BP 132/57 Pulse 64 Temp (!) 35.8 ?C (96.4 ?F) (Temporal Artery) Resp 30 Ht 172.7 cm (5' 8) Wt 104.2 kg (229 lb 11.5 oz) SpO2 (!) 87% BMI 34.93 kg/m? BLOOD PRESSURE RANGE: Systolic (24hrs), Av , Min:70 , Max:180 ; Diastolic (24hrs), Av, Min:34, Max:90 24HR INTAKE/OUTPUT: Intake/Output Summary (Last 24 hours) at 01/19/18 1236 Last data filed at 01/19/18 0700 Gross per 24 hour Intake 157.6 ml Output 2483 ml Net -2325.4 ml Physical exam: Constitutional: ?Ill appearing. Heent: ?intubated Cardiovascular: ?S1, S2 normal Respiratory: Coarse BS bilaterally Abdomen: ?+bs, soft, nt, nd, scrotal edema-unchanged Ext: 2+?lower extremity edema/anasarca Data: Labs: Recent Labs 01/19/18 0450 01/18/18 2305 01/18/18 1630 WBC 8.08 8.35 8.87 HB 9.5* 9.2* 9.4* HCT 28.5* 27.6* 29.1* MCV 85.3 84.9 85.3 PLT 56* 56* 55* Recent Labs 01/19/18 0450 01/18/18 1630 01/18/18 0500 01/18/18 0435 01/17/18 0435 NA 139 138 -- 139 < > 137 K 4.3 4.6 -- 4.5 < > 4.0 CO2 25 23 -- 23 < > 24 MG 2.6 -- 2.4 -- -- 2.3 BUN 22* 16 -- 14 < > 12 CREAT 1.63* 1.57* -- 1.70* < > 1.67* CA 7.0* 6.6* -- 6.9* < > 6.2* < > = values in this interval not displayed. Assessment and Plan 1. Acute kidney injury on chronic kidney disease stage 3. Baseline SCr is 1.36 mg/dL on 11/14/17. CKD is likely due to nephrosclerosis related to PAD. TERENCE is 2/2 ischemic ATN from shock. Pt remains anuric. Currently off pressor. Off CRRT for now since he was in the OR-will restart CRRT. Continue UF rate at 50 mL/hr since BP is stable. Will reassess later today; if BP remains stable, we may be more aggressive with UF. ? 2. Shock. Likely hemorrhagic shock-massive blood loss from ruptured AAA +/- adrenal insufficiency. Currently off pressor. Continue hydrocortisone. D/w Dr. Sutton. ? 5. Ruptured AAA. s/p repair 01/12/18. Management as per vascular surgery. ? 6. Acute hypoxic respiratory failure. Ventilator dependent. Vent management as per ICU. O>I with CRRT UF. See above. Please do not hesitate to contact me at [phone] if there is any question or concern. Rosanna Talbert MD (Shen Lorenzo) Nohemi Marquez, RN, RN 01/19/2018 12:54 PM Signed 0800 CRRT off blood returned. 0820 To Or with anesthesia 1130 Back from Or. Dialysis called to restart CRRT Derian Barlow MD 01/19/2018 1:54 PM Signed ANESTHESIOLOGY DAY OF SURGERY NOTE SERVICE DATE: 01/19/2018 SERVICE TIME: 0800 : 1940 Procedure(s) (LRB): EXPLORATORY LAPAROTOMY, WASHOUT, Partial Closure, Wound Vac placed. (Bilateral) Surgeon(s): Venkat Shen (Res) Ghassan Estimated body mass index is 34.93 kg/m? as calculated from the following: Height as of this encounter: 172.7 cm (5' 8). Weight as of this encounter: 104.2 kg (229 lb 11.5 oz). Most recent hematocrit and potassium results: Hematocrit 29.8 01/19/2018 Potassium 4.3 01/19/2018 ANES DOS/PREOP NOTE: Vitals: 01/19/18 1145 01/19/18 1150 01/19/18 1200 01/19/18 1204 BP: Pulse: 67 62 63 64 Resp: 18 11 18 30 Temp: (!) 35.6 ?C (96.1 ?F) TempSrc: SpO2: (!) 86% (!) 85% (!) 85% (!) 87% Weight: Height: ACTIVE PROBLEM LIST Gallstone Pancreatitis Ruptured Abdominal Aortic Aneurysm (Aaa) (Hcc) Dic (Disseminated Intravascular Coagulation) (Hcc) Hemorrhagic Shock (Hcc) Acute Respiratory Failure (Hcc) Cardiac Arrest (Hcc) Hypernatremia Hypokalemia Hypomagnesemia Hypophosphatemia Hyperchloremia Encephalopathy Aaa (Abdominal Aortic Aneurysm, Ruptured) (Hcc) Obesity, Class I, Bmi 30-34.9 PAST MEDICAL HISTORY Diagnosis Date - DIC (disseminated intravascular coagulation) ([facility]) 01/12/2018 PAST SURGICAL HISTORY Procedure Laterality Date - LAP CHOLECYSTECT/CHOLANGIOGRAPHY 05-28-09 - REPAIR UMBILICAL NATAN,5+Y/O,REDUC 05-28-09 FAMILY HISTORY Problem Relation Age of Onset - Coronary Artery Disease Father - None Mother Social History: Social History Substance Use Topics - Smoking status: Never Smoker - Smokeless tobacco: Not on file - Alcohol use No No current facility-administered medications on file prior to encounter. Current Outpatient Prescriptions on File Prior to Encounter: metoprolol succinate(TOPROL XL 50 MG 24 HR TAB) Take one(1) tablet daily. ASPIRIN 325 MG TAB Take one(1) tablet daily. triamterene/hydrochlorothiazid(DYAZIDE 37.5 MG-25 MG CAP) take one half (1/2) tablet daily LIPITOR 10 MG TAB Take one(1) tablet daily. Current Facility-Administered Medications: carboxymethylcellulose sodium 1-2 Drop (CELLUVISC) 1-2 Drop BOTH EYES PRN Venkat Paniagua calcium gluconate 4 g in NaCl 0.9% 250 mL 4 g INTRAVENOUS ONCE Dionicio (Res) Stevens sodium phosphate 45 mmol in D5W 250 mL 45 mmol INTRAVENOUS ONCE Dionicio (Res) Stevens Parenteral Nutrition - Adult INTRAVENOUS ONCE TPN (1800 START) H Edwin Dudley Parenteral Nutrition - Adult INTRAVENOUS ONCE TPN (1800 START) H Edwin Dudley Last Rate: 100 mL/hr at 01/19/18 0800 propofol infusion (DIPRIVAN) 0-15 mcg/kg/min (Adjusted) INTRAVENOUS CONTINUOUS Dionicio (Res) Stevens Stopped at 01/18/18 0850 hydrocortisone sodium succinate (PF) 50 mg injection (Solu- CORTEF) 50 mg INTRAVENOUS q 8 H Shen Lorenzo 50 mg at 01/19/18 0621 heparin 1,000 unit/mL 4,000 Units injection 4,000 Units INTRAVENOUS 3 Times weekly with dialysis Troy Godoy 4,000 Units at 01/17/18 2226 heparin 5,000 Units injection 5,000 Units SUBCUTANEOUS q 12 H Mervin (Res) Wally 5,000 Units at 01/18/18 2142 ampicillin-sulbactam 3 g in NaCl 0.9% 100 mL MB+ (UNASYN) 3 g INTRAVENOUS q 6 H Chente Whittaker Last Rate: 200 mL/hr at 01/19/18 0505 3 g at 01/19/18 0505 NaCl 0.9% 1,000 mL iv bolus 1,000 mL INTRAVENOUS PRN DIALYSIS Shen Lorenzo prismaSOL BGK 4 K / 2.5 mEq Ca/Liter 5,000 mL 5,000 mL HEMODIALYSIS continuous (no dispense) Shen Lorenzo Last Rate: 700 mL/hr at 01/16/18 1300 5,000 mL at 01/18/18 1747 prismaSOL BGK 4 K / 2.5 mEq Ca/Liter 5,000 mL 5,000 mL HEMODIALYSIS continuous (no dispense) Shen Lorenzo Last Rate: 700 mL/hr at 01/16/18 1300 5,000 mL at 01/18/18 1747 prismaSOL BGK 4 K / 2.5 mEq Ca/Liter 5,000 mL 5,000 mL HEMODIALYSIS continuous (no dispense) Shen Lorenzo Last Rate: 700 mL/hr at 01/16/18 1300 5,000 mL at 01/18/18 1747 dextrose 40 % 15 g 15 g ORAL PRN Jack Regula Or glucagon 1 mg injection (GLUCAGEN) 1 mg INTRAMUSCULAR PRN Jack Regula Or dextrose 50% in water 25 mL syringe 12.5 g INTRAVENOUS PRN Jack Regula magnesium sulfate 1 g in D5W 100 mL 1 g INTRAVENOUS PRN Emilie (Res) Cardella Last Rate: 100 mL/hr at 01/15/18 0016 1 g at 01/15/18 0016 magnesium sulfate in water 2 g in sterile water 50 ml 2 g INTRAVENOUS PRN Emilie (Res) Cardella Last Rate: 25 mL/hr at 01/13/18 1004 2 g at 01/13/18 1004 fentaNYL 20 mcg/mL iv infusion in NaCl 0.9% 100 mL 0-75 mcg/hr INTRAVENOUS CONTINUOUS Dionicio (Res) Stevens Last Rate: 3.75 mL/hr at 01/19/18 0800 75 mcg/hr at 01/19/18 0800 pantoprazole 40 mg injection (PROTONIX) 40 mg INTRAVENOUS DAILY (6 AM) Emilie (Res) Cardella 40 mg at 01/19/18 0506 NORepinephrine 16 mg in D5W 250 mL (LEVOPHED) 0-30 mcg/min INTRAVENOUS CONTINUOUS Dionicio (Res) Stevens Last Rate: 3.75 mL/hr at 01/19/18 0800 4 mcg/min at 01/19/18 0800 Chlorhexidine Gluconate 0.12 % 15 mL (PERIDEX) 15 mL ORAL q 12 H Elder (Md) Kalee 15 mL at 01/18/18 7439 Allergies: ALLERGIES No Known Allergies DOS EXAM: Adequate NPO status: Yes Anesthetic risks, benefits, alternatives, personnel and consent discussed: Yes Patient agrees to proceed: Yes Previous Anesthesia: No history of adverse event. Airway Assessment: Patient intubated or has existing tracheostomy. Symptoms of Sleep Apnea: N/A Dentition: N/A Additional Physical Exam: Lungs: Lungs clear to auscultation. Good diaphragmatic excursion. Cardiac: normal S1 and S2; no rubs, no murmurs, and no gallops Additional Pertinent Findings: N/A Blood Products: Not anticipated for this procedure. Anesthetic Plan: General, Standard ASA Monitors and arterial line Pain Management Plan: Parenteral or Oral ASA Class: 4 Other Medical Problems: None Chronic Beta Lyric medication administered within 24 hours: N/A I have interviewed and examined the patient. I have reviewed the medical record and/or the pre-anesthesia evaluation, pertinent labs, and test results. Significant changes in the patient's condition since the History and Physical, not otherwise documented in primary service progress notes: No This contains updated information obtained within 48 hours of Surgery/Procedure. SIGNATURE: Derian Barlow MD PATIENT NAME: Naveen Akins DATE: January 19, 2018 TIME: 1:52 PM CSN: [id number] Steve Rivera, RN, RN 01/19/2018 2:28 PM Signed Pt to OR today for ex-lap, washout, partial closure, and wound vac change. Remains on IV ABX, precedex, and levo. Will continue to follow for transitional needs. Troy Godoy MD 01/19/2018 3:08 PM Signed Dialysis catheter issues. Attempted to exchange catheter over guidewire. Under sterile precautions, attempted guidewire insertion through blue port. Could not pass guidewire beyond catheter length size. He likely has a small clot at tip of catheter. For now brown port flushes and draws blue ports flushes only. Will attempt CRRT again with reversed lines. If not successful will have to resite on left IJ or attempt femoral. Has a RIJ TLC in place. Will follow Megan Chino, RN, RN 01/19/2018 7:42 PM Signed CRRT system set up after new line with previous settings.BFR 150 pre pump 700 dialysate 700 replacement 700 ufr 350. Good flow from catheter. Hemosafe on x2 Derian Barlow MD 01/19/2018 5:09 PM Signed POST ANESTHESIA EVALUATION NOTE SERVICE DATE: 01/19/2018 SERVICE TIME: 1704 : 1940 Vitals: 01/19/18 1200 01/19/18 1400 01/19/18 1500 01/19/18 1600 Temp: (!) 35.6 ?C (96.1 ?F) (!) 35 ?C (95 ?F) (!) 35.2 ?C (95.4 ?F) (!) 35.2 ?C (95.4 ?F) 01/19/18 1400 01/19/18 1430 01/19/18 1500 01/19/18 1600 Arterial BP 1: 139/72 149/68 122/55 160/72 BP: 01/19/18 1400 01/19/18 1430 01/19/18 1500 01/19/18 1600 Pulse: 69 75 74 74 01/19/18 1400 01/19/18 1430 01/19/18 1500 01/19/18 1600 Resp: 30 30 25 25 01/19/18 1400 01/19/18 1430 01/19/18 1500 01/19/18 1600 SpO2: 98% 99% 99% 95% Validated Vital Signs: Yes POST ANES STATUS: No apparent anesthetic complications. The patient is appropriately hydrated with stable respiratory and cardiovascular status. Patient has safe and adequate airway control. The patient has appropriate pain relief and no significant post operative nausea or vomiting. The patient has achieved baseline mental status. Further assessment by Anesthesia Service: None Other Remarks: Pt was delivered to CVICU from OR in stable condition. From review of recent vital signs, pt's ventilatory status has apparently improved. SIGNATURE: Derian Barlow MD PATIENT NAME: Naveen Akins DATE: January 19, 2018 TIME: 5:08 PM PAGER/CONTACT #: Herman Sutton MD 01/19/2018 6:11 PM Signed MICU - PROGRESS NOTE SERVICE DATE: 01/19/2018 SERVICE TIME: 6:04 PM Admission Date: 01/12/2018 AGE: [age] year old LOS: 7 days Subjective REASON FOR ICU ADMISSION: { Patient remains critically ill, intubated on mechanical ventilation. Went back to the OR today to close his abdomen but were unable giving the significant swelling Was severely hypoxic postop and was on 100% and 10 of PEEP Vasopressors were off Objective PROBLEMS: ACTIVE PROBLEM LIST Gallstone Pancreatitis Ruptured Abdominal Aortic Aneurysm (Aaa) (Hcc) Dic (Disseminated Intravascular Coagulation) (Hcc) Hemorrhagic Shock (Hcc) Acute Respiratory Failure (Hcc) Cardiac Arrest (Hcc) Hypernatremia Hypokalemia Hypomagnesemia Hypophosphatemia Hyperchloremia Encephalopathy Aaa (Abdominal Aortic Aneurysm, Ruptured) (Hcc) Obesity, Class I, Bmi 30-34.9 PAST MEDICAL HISTORY Diagnosis Date - DIC (disseminated intravascular coagulation) (HCC) 01/12/2018 PAST SURGICAL HISTORY Procedure Laterality Date - LAP CHOLECYSTECT/CHOLANGIOGRAPHY 05-28-09 - REPAIR UMBILICAL NATAN,5+Y/O,REDUC 05-28-09 Social History Marital status: Spouse name: Shelly Years of education: 11 Number of children: 4 Occupational History 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 BP 132/57 Pulse 75 Temp (Src) 95.7 (Temporal Artery) Resp 23 Ht 5' 8 (1.73m) Wt 229 lb 11.5 oz (104.2kg) SpO2 95% BMI 34.94 kg/(m2). Temp (24hrs), Av.4 ?C (95.8 ?F), Min:35 ?C (95 ?F), Max:36 ?C (96.8 ?F) NET FLUID BALANCE Intake/Output Summary (Last 24 hours) at 01/19/18 1804 Last data filed at 01/19/18 0700 Gross per 24 hour Intake 157.6 ml Output 1173 ml Net -1015.4 ml MEDICATIONS Current Facility-Administered Medications: carboxymethylcellulose sodium 1-2 Drop (CELLUVISC) 1-2 Drop BOTH EYES PRN calcium gluconate 4 g in NaCl 0.9% 250 mL 4 g INTRAVENOUS ONCE sodium phosphate 45 mmol in D5W 250 mL 45 mmol INTRAVENOUS ONCE Parenteral Nutrition - Adult INTRAVENOUS ONCE TPN (1800 START) polyvinyl alcohol-povidone 1.4-0.6 % 1 Drop (REFRESH) 1 Drop BOTH EYES QID PRN propofol infusion (DIPRIVAN) 0-15 mcg/kg/min (Adjusted) INTRAVENOUS CONTINUOUS hydrocortisone sodium succinate (PF) 50 mg injection (Solu- CORTEF) 50 mg INTRAVENOUS q 8 H heparin 1,000 unit/mL 4,000 Units injection 4,000 Units INTRAVENOUS 3 Times weekly with dialysis heparin 5,000 Units injection 5,000 Units SUBCUTANEOUS q 12 H ampicillin-sulbactam 3 g in NaCl 0.9% 100 mL MB+ (UNASYN) 3 g INTRAVENOUS q 6 H NaCl 0.9% 1,000 mL iv bolus 1,000 mL INTRAVENOUS PRN DIALYSIS prismaSOL BGK 4 K / 2.5 mEq Ca/Liter 5,000 mL 5,000 mL HEMODIALYSIS continuous (no dispense) prismaSOL BGK 4 K / 2.5 mEq Ca/Liter 5,000 mL 5,000 mL HEMODIALYSIS continuous (no dispense) prismaSOL BGK 4 K / 2.5 mEq Ca/Liter 5,000 mL 5,000 mL HEMODIALYSIS continuous (no dispense) dextrose 40 % 15 g 15 g ORAL PRN Or glucagon 1 mg injection (GLUCAGEN) 1 mg INTRAMUSCULAR PRN Or dextrose 50% in water 25 mL syringe 12.5 g INTRAVENOUS PRN magnesium sulfate 1 g in D5W 100 mL 1 g INTRAVENOUS PRN magnesium sulfate in water 2 g in sterile water 50 ml 2 g INTRAVENOUS PRN fentaNYL 20 mcg/mL iv infusion in NaCl 0.9% 100 mL 0-75 mcg/hr INTRAVENOUS CONTINUOUS pantoprazole 40 mg injection (PROTONIX) 40 mg INTRAVENOUS DAILY (6 AM) NORepinephrine 16 mg in D5W 250 mL (LEVOPHED) 0-30 mcg/min INTRAVENOUS CONTINUOUS Chlorhexidine Gluconate 0.12 % 15 mL (PERIDEX) 15 mL ORAL q 12 H Lines, Drains, and Airways Line Central Line Double Lumen 01/12/18 0239 Right Neck 7 days Dialysis / Apheresis Double Lumen 01/13/18 1136 Left Neck 6 days Arterial Line 01/19/18 0840 Arterial Line Right Radial less than 1 day Central Line Quadruple Lumen 01/19/18 1056 Right Neck less than 1 day Drain Drain/Tube 01/12/18 Fecal Management System 7 days GI Feed/Drain 01/12/18 0100 7 days Drain/Tube 01/19/18 1015 Midline Abdomen less than 1 day Airway Airway Endotracheal Tube 01/12/18 1138 7 days PHYSICAL EXAM PERFORMED: General: sedated intubated , no vent dysynchrony Cardiovascular:?Regular rhythm, on amiodarone drip Respiratory:?Rhonchi bilaterally, requiring 100% FiO2 and 10 of PEEP Abdomen: Soft and Nontender Extremities:?Edema-?No??? Neurologic:?Sedated Respiratory/Nursing Documentation: O2 Therapy: Ventilator (01/19/181714) Invasive Ventilator Mode: Pressure Regulated Volume Control (01/19/181714) Set Ventilator Respiratory Rate (BPM): 24 (01/19/181714) Total Respiratory Rate (BPM): 24 (01/19/181714) Tidal Volume Set (mL): 500 (01/19/181714) Exhaled Tidal Volume (mL): 563 (01/19/181714) Minute Volume (L): 14.5 (01/19/181714) Peak Inspiratory Pressure (cm H2O): 18 (01/19/181714) PEEP/CPAP (cm H2O): 10 (01/19/181714) HEMODYNAMIC DATA: Reviewed NUTRITION: Enteral Feeds: No TPN DATA: Diagnostic tests reviewed for today's visit, films/specimens were personally reviewed by me: Most recent labs and imaging results. LABS: Recent Labs 01/19/18 1630 01/19/18 0450 01/18/18 1000 WBC 13.43* < > 8.08 < > 9.65* RBC 3.37* < > 3.34* < > 3.59* HB 9.8* < > 9.5* < > 10.1* HCT 28.9* < > 28.5* < > 30.7* MCV 85.8 < > 85.3 < > 85.5 PLT 91* < > 56* < > 54* GLUC 241* -- 215* < > -- BUN 31* -- 22* < > -- CREAT 1.90* -- 1.63* < > -- NA 138 -- 139 < > -- K 4.3 -- 4.3 < > -- CHLOR 106 -- 105 < > -- CO2 22 -- 25 < > -- TPROT -- -- -- -- 4.8* ALB -- -- -- -- 1.7* CA 6.5* -- 7.0* < > -- ALKPHOS -- -- -- -- 124* TBILI -- -- -- -- 4.3* AST -- -- -- -- 65* ALT -- -- -- -- 18 MG -- -- 2.6 -- -- < > = values in this interval not displayed. ABG: Recent Labs 01/19/18 1630 01/19/18 1215 01/18/18 0430 PH 7.321* 7.250* 7.342* PO2 68.2* 63.5* 98.3* PCO2 42.6 53.7* 42.3 cxr IMPRESSION: 1. ?Interval advancement versus placement of a new right IJ line, terminating over ?the right atrium. ?No pneumothorax. 2. ?Bilateral pleural effusion, with interval worsening on the right. 3. ?Bilateral infiltrative changes also appear slightly worse Assessment/Plan IMPRESSION: Acute Hypoxic Respiratory Failure on mechanical ventilation now with volume overload post op ARDS/VOLUME OVERLOAD Ruptured AAA s/p surgical repair s/p Cardiac Arrest Encephalopathy??? TERENCE on CKD?- Suspected ATN - On CRRT Lactic Acidosis - Resolved Sinus Tachycardia Thrombocytopenia SVT - Resolved MMP ? PLANS FOR TODAY: ? Continue?mechanical ventilation With high PEEP and FiO2 of 100% We'll start CRRT to help removing fluid hopefully this will help with oxygenation, if needed vasopressors to be used to help keep his balance negative Fentanyl Drip for pain HD better with hydrocortisone EEG impressive for severe encephalopathy, no evidence of epileptiform activity/seizures AAA management/post-operative care per vascular surgery Continue w/ amiodarone gtt, monitor rhythm. ?No further runs of SVT Cardiology consulted, appreciate recs Continue TPN SCDs/PPI/ Heparin SQ per primary team Guarded prgnosis ? Critical Care Documentation:?The patient has the following organ/system impairment(s): ?Circulatory shock, Complex life-threatening ?medical problem(s) and Respiratory failure (Acute, with Hypoxemia) ? ? This patient has a high probability of sudden, clinically significant deterioration, which requires the highest level of physician preparedness to intervene urgently. ?I managed/supervised life or organ supporting interventions that required frequent physician assessment. ?I devoted my full attention to the direct care of this patient for the amount of time indicated below. ?Time I spent with family or surrogate(s) is included only if the patient was incapable of providing the necessary information or participating in medical decision making. ?Time devoted to teaching is not included. ? Critical Care Time devoted to this patient is ?40?minutes SIGNATURE: Herman Sutton MD PATIENT NAME: Naveen Akins DATE: January 19, 2018 TIME: 6:04 PM Dionicio Stevens MD 01/20/2018 9:32 AM Signed Vascular Surgery Progress Note SERVICE DATE: 01/20/2018 Vascular AND Thoracic Surgery Service Pager: For questions or concerns Mon-Tue 6a-5p please page [phone]. After 5pm and on Weekends and Holidays, please page [phone] if in ICU or [phone] if on RNF. Subjective SUBJECTIVE: NAEON, weaning Levo Diet: Parenteral Nutrition - Adult DIET NPO Objective OBJECTIVE: Vitals: Temp (24hrs), Av.6 ?C (96.1 ?F), Min:35 ?C (95 ?F), Max:36.5 ?C (97.7 ?F) BP 132/57 Pulse 92 Temp 36.5 ?C (97.7 ?F) (Temporal Artery) Resp 28 Ht 172.7 cm (5' 8) Wt 104.2 kg (229 lb 11.5 oz) SpO2 94% BMI 34.93 kg/m? O2 Therapy: Ventilator IANDO: Date 01/19/18699 - 01/20/18 0659 01/20/18699 - 01/21/18 0659 Shift 6962-2383 9709-0651 4873-8085 24 Hour Total 9126-5191 0715-5612 1617-7259 24 Hour Total I N T A K E IV 6302 744 9046 IVPB 79 79 NS 0.9% 756 41 797 Calcium IVPB 147 147 Fentanyl Volume 54 25 79 Dexmedetomidine IV 45 45 NORepinephrine Volume 78 50 128 Propofol IV 159 208 367 Ampicillin/Sulbactam (Unasyn) IV 100 200 300 TPN/PPN 5230 254 8028 TPN 1905 303 3902 Shift Total 2868 1313 4181 O U T P U T Urine Urine Incontinence/Not Saved 3 x 3 x Tubes 200 350 550 Drain/Tube Output (Drain/Tube 01/19/18 1015 Midline Abdomen) 200 350 550 Drain/Tube Output (Drain/Tube 01/12/18 Fecal Management System) 0 0 0 Output (GI Feed/Drain 01/12/18 0100) 0 0 0 Dialysis 140 1058 1777 2975 Dialysis Output (Ultrafiltration) 140 1058 1777 2975 Shift Total 140 1258 2127 3525 Weight (kg) 104.2 104.2 104.2 104.2 104.2 104.2 104.2 104.2 MEDICATIONS Current Facility-Administered Medications: carboxymethylcellulose sodium 1-2 Drop (CELLUVISC) 1-2 Drop BOTH EYES PRN Parenteral Nutrition - Adult INTRAVENOUS ONCE TPN (1800 START) polyvinyl alcohol-povidone 1.4-0.6 % 1 Drop (REFRESH) 1 Drop BOTH EYES QID PRN propofol infusion (DIPRIVAN) 0-15 mcg/kg/min (Adjusted) INTRAVENOUS CONTINUOUS hydrocortisone sodium succinate (PF) 50 mg injection (Solu- CORTEF) 50 mg INTRAVENOUS q 8 H heparin 1,000 unit/mL 4,000 Units injection 4,000 Units INTRAVENOUS 3 Times weekly with dialysis heparin 5,000 Units injection 5,000 Units SUBCUTANEOUS q 12 H ampicillin-sulbactam 3 g in NaCl 0.9% 100 mL MB+ (UNASYN) 3 g INTRAVENOUS q 6 H NaCl 0.9% 1,000 mL iv bolus 1,000 mL INTRAVENOUS PRN DIALYSIS prismaSOL BGK 4 K / 2.5 mEq Ca/Liter 5,000 mL 5,000 mL HEMODIALYSIS continuous (no dispense) prismaSOL BGK 4 K / 2.5 mEq Ca/Liter 5,000 mL 5,000 mL HEMODIALYSIS continuous (no dispense) prismaSOL BGK 4 K / 2.5 mEq Ca/Liter 5,000 mL 5,000 mL HEMODIALYSIS continuous (no dispense) dextrose 40 % 15 g 15 g ORAL PRN Or glucagon 1 mg injection (GLUCAGEN) 1 mg INTRAMUSCULAR PRN Or dextrose 50% in water 25 mL syringe 12.5 g INTRAVENOUS PRN magnesium sulfate 1 g in D5W 100 mL 1 g INTRAVENOUS PRN magnesium sulfate in water 2 g in sterile water 50 ml 2 g INTRAVENOUS PRN fentaNYL 20 mcg/mL iv infusion in NaCl 0.9% 100 mL 0-75 mcg/hr INTRAVENOUS CONTINUOUS pantoprazole 40 mg injection (PROTONIX) 40 mg INTRAVENOUS DAILY (6 AM) NORepinephrine 16 mg in D5W 250 mL (LEVOPHED) 0-30 mcg/min INTRAVENOUS CONTINUOUS Chlorhexidine Gluconate 0.12 % 15 mL (PERIDEX) 15 mL ORAL q 12 H Labs: Recent Labs 01/20/18 0345 01/19/18 1630 01/19/18 0450 01/18/18 1000 01/18/18 0500 NA 135* 138 -- 139 < > -- -- K 4.5 4.3 -- 4.3 < > -- -- CHLOR 104 106 -- 105 < > -- -- CO2 21 22 -- 25 < > -- -- BUN 36* 31* -- 22* < > -- -- CREAT 1.84* 1.90* -- 1.63* < > -- -- GLUC -- 241* -- 215* < > -- -- ANION 15 14 -- 13 < > -- -- CA 6.8* 6.5* -- 7.0* < > -- -- MG -- -- -- 2.6 -- -- 2.4 P -- -- -- 2.7 -- -- 3.8 ALB 1.5* -- -- -- -- 1.7* -- AST 130* -- -- -- -- 65* -- ALT -- -- -- -- -- 18 -- ALKPHOS 190* -- -- -- -- 124* -- TBILI 6.0* -- -- -- -- 4.3* -- WBC 14.99* 13.43* < > 8.08 < > 9.65* -- HB 9.4* 9.8* < > 9.5* < > 10.1* -- HCT 27.1* 28.9* < > 28.5* < > 30.7* -- PLT 97* 91* < > 56* < > 54* -- PH 7.405 7.321* < > -- -- -- -- PCO2 33.0* 42.6 < > -- -- -- -- PO2 65.4* 68.2* < > -- -- -- -- BE -3.9 -4.3 < > -- -- -- -- < > = values in this interval not displayed. Exam: GENERAL: No distress NEURO: pupils reactive/sluggish, not following commands, withdrawing and opening eyes to pain HEENT: normocephalic, atraumatic, +scleral icterus LUNGS: Tachypnea on Ventilator CARDIAC: Regular rate and rhythm as above, Levo @ 2 mcg/min ABDOMEN: Soft, mild D, NT, no PS, Vac intact w SS output EXTREMITIES: MAK, No deformities, +Anasarca, palpable pulses SKIN: Skin color, texture, turgor normal, No rashes or lesions ASSESSMENT AND PLAN: Active Hospital Problems Diagnosis Date Noted - Ruptured abdominal aortic aneurysm (AAA) ([facility]) 01/12/2018 - Obesity, Class I, BMI 30-34.9 01/16/2018 - Encephalopathy 01/13/2018 - DIC (disseminated intravascular coagulation) ([facility]) 01/12/2018 - Hemorrhagic shock ([facility]) 01/12/2018 - Acute respiratory failure ([facility]) 01/12/2018 - Cardiac arrest ([facility]) 01/12/2018 - Hypernatremia 01/12/2018 - Hypokalemia 01/12/2018 - Hypomagnesemia 01/12/2018 - Hypophosphatemia 01/12/2018 - Hyperchloremia 01/12/2018 - AAA (abdominal aortic aneurysm, ruptured) ([facility]) 01/12/2018 Overview Note: Added automatically from request for surgery [id number] 77 year old male with Ruptured AAA s/p Emergent Repair, takeback washout, repair of serosal tears x2, on 01/12, hemorrhagic shock, acute resp failure with pulm edema, TERENCE, SVT, s/p Third Look Laparotomy and?washout on 01/14, fourth look, washout, vac change on 01/16, Partial fascial closure on 01/19 ? - Vent mgmt per MICU - NPO/TPN - Wean Levo as able - Acute blood loss and dilutional anemia and thrombocytopenia - monitor, transfuse prn - q6 labs - Cont Abthera VAC - TERENCE -->?CVVHD per?Nephro, diurese as tolerates - CXR with bilateral pulm edema/effusions, worsening by my read --> consider US +/- Thoracentesis - Unasyn empirically per MICU - Hypocalcemia and phosphatemia?- replacing - Amio per Cards for SVT - cont scrotal support - Hyperbilirubinemia - likely transfusion related, consider RUQ US if fevers develop and LFTs/jaundice worsen - Solucortef 50mg q8h per MICU - Leukocytosis - reactive and steroid related, afebrile, monitor ? OR tomorrow for possible fascial closure ?? Assessment and plan discussed with attending: Dr. Paniagua SIGNATURE: Dionicio Stevens MD PATIENT NAME: Naveen Akins DATE: January 20, 2018 TIME: 6:23 AM Vascular AND Thoracic Surgery Service Pager: For questions or concerns Mon-Fri 6a-5p please page [phone]. After 5pm and on Weekends and Holidays, please page [phone] if in ICU or [phone] if on RNF. Abbi Meneses, RN, RN 01/20/2018 6:37 AM Signed Spoke with Dr. Winston on the phone. Pt's respirations have increased over the past couple of hours from mid to high 20's to 33-34 per min. Pt afebrile at 36.6. Order obtained to increase fentanyl gtt to 100mcg./hr. Have been slowly decreasing patients Norepi throughout the night. Currently on 4mcg/min. He stated he would look at morning chest xray. Jose Jasso, RN, RN 01/20/2018 8:19 AM Incomplete {Select Nursing Progress Note Template:[id number]} Hermelinda Ferrell MD 01/20/2018 8:53 AM Attested Attestation signed by Costa Miguel at 01/20/2018 1:35 PM I saw and evaluated the patient. I reviewed the resident's note and agree. Costa Miguel MD, FACS, [facility] PROGRESS NOTES SERVICE DATE: 01/20/2018 Subjective SUBJECTIVE: Weaned off pressors overnight. Diet: Parenteral Nutrition - Adult DIET NPO Objective OBJECTIVE: Vitals: Temp (24hrs), Av.8 ?C (96.5 ?F), Min:35 ?C (95 ?F), Max:36.6 ?C (97.9 ?F) BP 132/57 Pulse 87 Temp 36.4 ?C (97.5 ?F) (Temporal Artery) Resp 30 Ht 172.7 cm (5' 8) Wt 96.7 kg (213 lb 3 oz) SpO2 96% BMI 32.41 kg/m? O2 Therapy: Ventilator IANDO: Date 01/19/18 07 - 01/20/18 0659 01/20/18 07 - 01/21/18 0659 Shift 6009-6856 8616-7677 9915-0502 24 Hour Total 6919-8529 2606-4203 3022-3526 24 Hour Total I N T A K E IV 6593 184 0848 37 37 IVPB 79 79 NS 0.9% 756 41 797 10 10 Calcium IVPB 147 147 Fentanyl Volume 54 25 79 5 5 Dexmedetomidine IV 45 45 NORepinephrine Volume 78 50 128 3 3 Propofol IV 159 208 367 19 19 Ampicillin/Sulbactam (Unasyn) IV 100 200 300 TPN/PPN 6804 058 8883 103 103 TPN 2787 989 6598 103 103 Shift Total 2868 1313 4181 140 140 O U T P U T Urine Urine Incontinence/Not Saved 3 x 3 x Tubes 200 350 550 100 100 Drain/Tube Output (Drain/Tube 01/19/18 1015 Midline Abdomen) 200 350 550 50 50 Drain/Tube Output (Drain/Tube 01/12/18 Fecal Management System) 0 0 0 0 0 Output (GI Feed/Drain 01/12/18 0100) 0 0 0 50 50 Dialysis 140 1058 1507 2705 256 256 Dialysis Output (Ultrafiltration) 140 1058 1507 2705 256 256 Shift Total 140 1258 1857 3255 356 356 Weight (kg) 104.2 104.2 104.2 104.2 96.7 96.7 96.7 96.7 MEDICATIONS Current Facility-Administered Medications: carboxymethylcellulose sodium 1-2 Drop (CELLUVISC) 1-2 Drop BOTH EYES PRN Parenteral Nutrition - Adult INTRAVENOUS ONCE TPN (1800 START) polyvinyl alcohol-povidone 1.4-0.6 % 1 Drop (REFRESH) 1 Drop BOTH EYES QID PRN propofol infusion (DIPRIVAN) 0-15 mcg/kg/min (Adjusted) INTRAVENOUS CONTINUOUS hydrocortisone sodium succinate (PF) 50 mg injection (Solu- CORTEF) 50 mg INTRAVENOUS q 8 H heparin 1,000 unit/mL 4,000 Units injection 4,000 Units INTRAVENOUS 3 Times weekly with dialysis heparin 5,000 Units injection 5,000 Units SUBCUTANEOUS q 12 H ampicillin-sulbactam 3 g in NaCl 0.9% 100 mL MB+ (UNASYN) 3 g INTRAVENOUS q 6 H NaCl 0.9% 1,000 mL iv bolus 1,000 mL INTRAVENOUS PRN DIALYSIS prismaSOL BGK 4 K / 2.5 mEq Ca/Liter 5,000 mL 5,000 mL HEMODIALYSIS continuous (no dispense) prismaSOL BGK 4 K / 2.5 mEq Ca/Liter 5,000 mL 5,000 mL HEMODIALYSIS continuous (no dispense) prismaSOL BGK 4 K / 2.5 mEq Ca/Liter 5,000 mL 5,000 mL HEMODIALYSIS continuous (no dispense) dextrose 40 % 15 g 15 g ORAL PRN Or glucagon 1 mg injection (GLUCAGEN) 1 mg INTRAMUSCULAR PRN Or dextrose 50% in water 25 mL syringe 12.5 g INTRAVENOUS PRN magnesium sulfate 1 g in D5W 100 mL 1 g INTRAVENOUS PRN magnesium sulfate in water 2 g in sterile water 50 ml 2 g INTRAVENOUS PRN fentaNYL 20 mcg/mL iv infusion in NaCl 0.9% 100 mL 0-100 mcg/hr INTRAVENOUS CONTINUOUS pantoprazole 40 mg injection (PROTONIX) 40 mg INTRAVENOUS DAILY (6 AM) NORepinephrine 16 mg in D5W 250 mL (LEVOPHED) 0-30 mcg/min INTRAVENOUS CONTINUOUS Chlorhexidine Gluconate 0.12 % 15 mL (PERIDEX) 15 mL ORAL q 12 H Labs: Recent Labs 01/20/18 0345 01/19/18 1630 01/19/18 0450 01/18/18 1000 NA 135* 138 -- 139 < > -- K 4.5 4.3 -- 4.3 < > -- CHLOR 104 106 -- 105 < > -- CO2 21 22 -- 25 < > -- BUN 36* 31* -- 22* < > -- CREAT 1.84* 1.90* -- 1.63* < > -- GLUC 186* 241* -- 215* < > -- ANION 15 14 -- 13 < > -- CA 6.8* 6.5* -- 7.0* < > -- MG 2.6 -- -- 2.6 -- -- P 5.2* -- -- 2.7 -- -- ALB 1.5* -- -- -- -- 1.7* AST 130* -- -- -- -- 65* ALT 57 -- -- -- -- 18 ALKPHOS 190* -- -- -- -- 124* TBILI 6.0* -- -- -- -- 4.3* WBC 14.99* 13.43* < > 8.08 < > 9.65* HB 9.4* 9.8* < > 9.5* < > 10.1* HCT 27.1* 28.9* < > 28.5* < > 30.7* PLT 97* 91* < > 56* < > 54* PH 7.405 7.321* < > -- -- -- PCO2 33.0* 42.6 < > -- -- -- PO2 65.4* 68.2* < > -- -- -- BE -3.9 -4.3 < > -- -- -- < > = values in this interval not displayed. Exam: GENERAL: comatose LUNGS: labored breathing O2 Therapy: Ventilator CARDIAC: Regular rate and rhythm as above ABDOMEN: partially closed, abd soft, Vac intact w SS output EXTREMITIES: pitting peripheral edema SKIN: Skin color, texture, turgor normal, No rashes or lesions ASSESSMENT AND PLAN: Active Hospital Problems Diagnosis Date Noted - Ruptured abdominal aortic aneurysm (AAA) ([facility]) 01/12/2018 - Obesity, Class I, BMI 30-34.9 01/16/2018 - Encephalopathy 01/13/2018 - DIC (disseminated intravascular coagulation) ([facility]) 01/12/2018 - Hemorrhagic shock ([facility]) 01/12/2018 - Acute respiratory failure ([facility]) 01/12/2018 - Cardiac arrest ([facility]) 01/12/2018 - Hypernatremia 01/12/2018 - Hypokalemia 01/12/2018 - Hypomagnesemia 01/12/2018 - Hypophosphatemia 01/12/2018 - Hyperchloremia 01/12/2018 - AAA (abdominal aortic aneurysm, ruptured) ([facility]) 01/12/2018 Overview Note: Added automatically from request for surgery [id number] 77 year old male with Ruptured AAA s/p Emergent Repair, takeback washout, repair of serosal tears x2, on 01/12, hemorrhagic shock, acute resp failure with pulm edema, TERENCE, SVT, s/p Third Look Laparotomy and?washout on 01/14, fourth look, washout, vac change on 01/16, partial abd closure and wound vac placement 01/19 ? - weaned off pressors overnight - continued diuresis, pt tolerating well - plan OR tomorrow for attempted closure ? Assessment and plan discussed with attending: Myriam Ferrell MD General Surgery, PGY-2 January 20, 2018 8:50 AM Emergency General Surgery Service Pager: For questions or concerns Mon-Fri 6a-5p please page [phone]. After 5pm and on Weekends and Holidays, please page [phone] if in ICU or [phone] if on RNF. Herman Sutton MD 01/20/2018 9:35 AM Signed MICU - PROGRESS NOTE SERVICE DATE: 01/20/2018 SERVICE TIME: 9:22 AM Admission Date: 01/12/2018 AGE: [age] year old LOS: 8 days Subjective REASON FOR ICU ADMISSION: Patient restill critically ill, intubated on mechanical ventilation now on 90% and 10 of PEEP tachypneic without vent dyssynchrony Vasopressors off CRRT on hold as the flow through HD catheter is positional Still encephalopathic and more agitated when weaning off sedation Fentanyl increase this am and propofol continued Objective PROBLEMS: ACTIVE PROBLEM LIST Gallstone Pancreatitis Ruptured Abdominal Aortic Aneurysm (Aaa) ([facility]) Dic (Disseminated Intravascular Coagulation) ([facility]) Hemorrhagic Shock ([facility]) Acute Respiratory Failure ([facility]) Cardiac Arrest ([facility]) Hypernatremia Hypokalemia Hypomagnesemia Hypophosphatemia Hyperchloremia Encephalopathy Aaa (Abdominal Aortic Aneurysm, Ruptured) (Hcc) Obesity, Class I, Bmi 30-34.9 PAST MEDICAL HISTORY Diagnosis Date - DIC (disseminated intravascular coagulation) (HCC) 01/12/2018 PAST SURGICAL HISTORY Procedure Laterality Date - LAP CHOLECYSTECT/CHOLANGIOGRAPHY 05-28-09 - REPAIR UMBILICAL NATAN,5+Y/O,REDUC 05-28-09 Social History Marital status: Spouse name: Shelly Years of education: 11 Number of children: 4 Occupational 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 BP 132/57 Pulse 87 Temp (Src) 97.5 (Temporal Artery) Resp 30 Ht 5' 8 (1.73m) Wt 213 lb 3 oz (96.7kg) SpO2 96% BMI 32.42 kg/(m2). Temp (24hrs), Av.8 ?C (96.5 ?F), Min:35 ?C (95 ?F), Max:36.6 ?C (97.9 ?F) NET FLUID BALANCE Intake/Output Summary (Last 24 hours) at 01/20/18 0922 Last data filed at 01/20/18 0700 Gross per 24 hour Intake 4321 ml Output 3471 ml Net 850 ml MEDICATIONS Current Facility-Administered Medications: carboxymethylcellulose sodium 1-2 Drop (CELLUVISC) 1-2 Drop BOTH EYES PRN Parenteral Nutrition - Adult INTRAVENOUS ONCE TPN (1800 START) polyvinyl alcohol-povidone 1.4-0.6 % 1 Drop (REFRESH) 1 Drop BOTH EYES QID PRN propofol infusion (DIPRIVAN) 0-15 mcg/kg/min (Adjusted) INTRAVENOUS CONTINUOUS hydrocortisone sodium succinate (PF) 50 mg injection (Solu- CORTEF) 50 mg INTRAVENOUS q 8 H heparin 1,000 unit/mL 4,000 Units injection 4,000 Units INTRAVENOUS 3 Times weekly with dialysis heparin 5,000 Units injection 5,000 Units SUBCUTANEOUS q 12 H ampicillin-sulbactam 3 g in NaCl 0.9% 100 mL MB+ (UNASYN) 3 g INTRAVENOUS q 6 H NaCl 0.9% 1,000 mL iv bolus 1,000 mL INTRAVENOUS PRN DIALYSIS prismaSOL BGK 4 K / 2.5 mEq Ca/Liter 5,000 mL 5,000 mL HEMODIALYSIS continuous (no dispense) prismaSOL BGK 4 K / 2.5 mEq Ca/Liter 5,000 mL 5,000 mL HEMODIALYSIS continuous (no dispense) prismaSOL BGK 4 K / 2.5 mEq Ca/Liter 5,000 mL 5,000 mL HEMODIALYSIS continuous (no dispense) dextrose 40 % 15 g 15 g ORAL PRN Or glucagon 1 mg injection (GLUCAGEN) 1 mg INTRAMUSCULAR PRN Or dextrose 50% in water 25 mL syringe 12.5 g INTRAVENOUS PRN magnesium sulfate 1 g in D5W 100 mL 1 g INTRAVENOUS PRN magnesium sulfate in water 2 g in sterile water 50 ml 2 g INTRAVENOUS PRN fentaNYL 20 mcg/mL iv infusion in NaCl 0.9% 100 mL 0-100 mcg/hr INTRAVENOUS CONTINUOUS pantoprazole 40 mg injection (PROTONIX) 40 mg INTRAVENOUS DAILY (6 AM) NORepinephrine 16 mg in D5W 250 mL (LEVOPHED) 0-30 mcg/min INTRAVENOUS CONTINUOUS Chlorhexidine Gluconate 0.12 % 15 mL (PERIDEX) 15 mL ORAL q 12 H Lines, Drains, and Airways Line Dialysis / Apheresis Double Lumen 01/13/18 1136 Left Neck 6 days Arterial Line 01/19/18 0840 Arterial Line Right Radial 1 day Central Line Quadruple Lumen 01/19/18 1056 Right Neck less than 1 day Drain Drain/Tube 01/12/18 Fecal Management System 8 days GI Feed/Drain 01/12/18 0100 8 days Drain/Tube 01/19/18 1015 Midline Abdomen less than 1 day Airway Airway Endotracheal Tube 01/12/18 1138 7 days PHYSICAL EXAM PERFORMED: General:looks in distress, sedated on fenatnyl and propofol Cardiovascular: Regular rhythm Respiratory: tachypneic, on 90% and 10 PEEP Abdomen: Soft Extremities: Edema- No Neurologic: sedated Respiratory/Nursing Documentation: O2 Therapy: Ventilator (01/20/18756) Invasive Ventilator Mode: Pressure Regulated Volume Control (01/20/18756) Set Ventilator Respiratory Rate (BPM): 24 (01/20/18756) Total Respiratory Rate (BPM): 36 (01/20/18756) Tidal Volume Set (mL): 500 (01/20/18756) Exhaled Tidal Volume (mL): 561 (01/20/18756) Minute Volume (L): 18.4 (01/20/18756) Peak Inspiratory Pressure (cm H2O): 13 (01/20/18756) PEEP/CPAP (cm H2O): 10 (01/20/18756) HEMODYNAMIC DATA: Reviewed NUTRITION: Enteral Feeds: No TPN DATA: Diagnostic tests reviewed for today's visit, films/specimens were personally reviewed by me: Most recent labs and imaging results. LABS: Recent Labs 01/20/18 0345 WBC 14.99* RBC 3.18* HB 9.4* HCT 27.1* MCV 85.2 PLT 97* GLUC 186* BUN 36* CREAT 1.84* NA 135* K 4.5 CHLOR 104 CO2 21 TPROT 4.9* ALB 1.5* CA 6.8* ALKPHOS 190* TBILI 6.0* AST 130* ALT 57 MG 2.6 ABG: Recent Labs 01/20/18 0345 01/19/18 1630 01/19/18 1215 PH 7.405 7.321* 7.250* PO2 65.4* 68.2* 63.5* PCO2 33.0* 42.6 53.7* CXR with worsneing pleural effusion and ARDS like picture Assessment/Plan IMPRESSION: Acute Hypoxic Respiratory Failure on mechanical ventilation ARDS/VOLUME OVERLOAD Large bilateral effusion Ruptured AAA s/p surgical repair s/p Cardiac Arrest Encephalopathy??? TERENCE on CKD?- Suspected ATN - On CRRT Lactic Acidosis - Resolved Sinus Tachycardia Thrombocytopenia SVT - Resolved MMP ? PLANS: ? Continue?mechanical ventilation With high PEEP and FiO2 of 90% CRRT to help removing fluid, if needed vasopressors to be used to help keep his balance negative Vent adjusted Fentanyl Drip for pain Propofol for sedation HD better with hydrocortisone EEG impressive for severe encephalopathy, no evidence of epileptiform activity/seizures AAA management/post-operative care per vascular surgery Continue w/ amiodarone gtt, monitor rhythm. ?No further runs of SVT Cardiology consulted, appreciate recs Continue TPN SCDs/PPI/ Heparin SQ per primary team Overall prognosis is poor, patient with multiorgan failure, ARDS/Volume overload, TERENCE on CRRT and encephalopathic and difficult wean off sedation, Recommend discussion goals of care/Palliative care ? Critical Care Documentation:?The patient has the following organ/system impairment(s): ?Circulatory shock, Complex life-threatening ?medical problem(s) and Respiratory failure (Acute, with Hypoxemia) ? ? This patient has a high probability of sudden, clinically significant deterioration, which requires the highest level of physician preparedness to intervene urgently. ?I managed/supervised life or organ supporting interventions that required frequent physician assessment. ?I devoted my full attention to the direct care of this patient for the amount of time indicated below. ?Time I spent with family or surrogate(s) is included only if the patient was incapable of providing the necessary information or participating in medical decision making. ?Time devoted to teaching is not included. ? Critical Care Time devoted to this patient is ?40?minutes SIGNATURE: Herman Sutton MD PATIENT NAME: Naveen Akins DATE: January 20, 2018 TIME: 9:22 AM Troy Godoy MD 01/20/2018 10:13 AM Signed Subjective. Intubated sedated 01/20/18 0715 01/20/18 0730 01/20/18 0745 01/20/18 0757 BP: Pulse: 88 90 87 Resp: 27 26 29 30 Temp: TempSrc: SpO2: 93% 93% 96% Weight: Height: No pallor No icterus No JVD Heart - S1 S2 Lungs - b/l air entry Abdomen - soft, non distended, no organomegaly LE - +++ edema, No cyanosis No rash CMP: Glucose 186 01/20/2018 BUN 36 01/20/2018 Creatinine 1.84 01/20/2018 Sodium 135 01/20/2018 Potassium 4.5 01/20/2018 Chloride 104 01/20/2018 CO2 21 01/20/2018 Protein, Total 4.9 01/20/2018 Albumin 1.5 01/20/2018 Calcium 6.8 01/20/2018 Alkaline Phosphatase 190 01/20/2018 Bilirubin, Total 6.0 01/20/2018 AST 130 01/20/2018 ALT 57 01/20/2018 Hemoglobin (g/dL) Date Value 11/14/2017 15.0 HGB (g/dL) Date Value 01/20/2018 9.4 Hematocrit (%) Date Value 01/20/2018 27.1 WBC (thou/cmm) Date Value 01/20/2018 14.99 Platelet Count (thou/cmm) Date Value 01/20/2018 97 Assessment/ Plan 1. Acute kidney injury on chronic kidney disease stage 3. Baseline SCr is 1.36 mg/dL on 11/14/17. CKD is likely due to nephrosclerosis related to PAD. TERENCE is 2/2 ischemic ATN from shock. Pt remains anuric. Currently on low dose levophed. Increase UF rate to 100cc/hr ? 2. Shock. Likely hemorrhagic shock-massive blood loss from ruptured AAA +/- adrenal insufficiency. Continue hydrocortisone. D/w Dr. Sutton. ? 5. Ruptured AAA. s/p repair 01/12/18. Management as per vascular surgery. ? 6. Acute hypoxic respiratory failure. Ventilator dependent. Vent management as per ICU. O>I with CRRT UF. CXR reviewed Fifi Coker RN, RN 01/20/2018 10:31 AM Signed Cont to followto assst with discharge plan. Plan for OR on Sat. 01/21 for attempted closure of surgical wound. Paulo Lovelace, ACADEMIC ADMINISTRATOR.MAINTENANCE TEAM MEMBER 01/20/2018 1:40 PM Signed MICU - PROGRESS NOTE SERVICE DATE: 01/20/2018 SERVICE TIME: 1:29 PM Admission Date: 01/12/2018 AGE: [id number] year old LOS: 8 days Subjective REASON FOR ICU ADMISSION: Respiratory Failure Objective PROBLEMS: ACTIVE PROBLEM LIST Gallstone Pancreatitis Ruptured Abdominal Aortic Aneurysm (Aaa) (Hcc) Dic (Disseminated Intravascular Coagulation) (Hcc) Hemorrhagic Shock (Hcc) Acute Respiratory Failure (Hcc) Cardiac Arrest (Hcc) Hypernatremia Hypokalemia Hypomagnesemia Hypophosphatemia Hyperchloremia Encephalopathy Aaa (Abdominal Aortic Aneurysm, Ruptured) (Hcc) Obesity, Class I, Bmi 30-34.9 PAST MEDICAL HISTORY Diagnosis Date - DIC (disseminated intravascular coagulation) (HCC) 01/12/2018 PAST SURGICAL HISTORY Procedure Laterality Date - LAP CHOLECYSTECT/CHOLANGIOGRAPHY 05-28-09 - REPAIR UMBILICAL NATAN,5+Y/O,REDUC 05-28-09 Social History Marital status: Spouse name: Shelly Years of education: 11 Number of children: 4 Occupational History 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 BP 132/57 Pulse 75 Temp (Src) 96.8 (Axillary) Resp 19 Ht 5' 8 (1.73m) Wt 213 lb 3 oz (96.7kg) SpO2 95% BMI 32.42 kg/(m2). Temp (24hrs), Av.8 ?C (96.5 ?F), Min:35 ?C (95 ?F), Max:36.6 ?C (97.9 ?F) NET FLUID BALANCE Intake/Output Summary (Last 24 hours) at 01/20/18 1329 Last data filed at 01/20/18 1200 Gross per 24 hour Intake 4321 ml Output 4618 ml Net -297 ml MEDICATIONS Current Facility-Administered Medications: dexmedetomidine 400 mcg in NaCl 0.9% 100 mL (PRECEDEX) 0.2- 0.7 mcg/kg/hr INTRAVENOUS CONTINUOUS carboxymethylcellulose sodium 1-2 Drop (CELLUVISC) 1-2 Drop BOTH EYES PRN Parenteral Nutrition - Adult INTRAVENOUS ONCE TPN (1800 START) polyvinyl alcohol-povidone 1.4-0.6 % 1 Drop (REFRESH) 1 Drop BOTH EYES QID PRN propofol infusion (DIPRIVAN) 0-15 mcg/kg/min (Adjusted) INTRAVENOUS CONTINUOUS hydrocortisone sodium succinate (PF) 50 mg injection (Solu- CORTEF) 50 mg INTRAVENOUS q 8 H heparin 1,000 unit/mL 4,000 Units injection 4,000 Units INTRAVENOUS 3 Times weekly with dialysis heparin 5,000 Units injection 5,000 Units SUBCUTANEOUS q 12 H ampicillin-sulbactam 3 g in NaCl 0.9% 100 mL MB+ (UNASYN) 3 g INTRAVENOUS q 6 H NaCl 0.9% 1,000 mL iv bolus 1,000 mL INTRAVENOUS PRN DIALYSIS prismaSOL BGK 4 K / 2.5 mEq Ca/Liter 5,000 mL 5,000 mL HEMODIALYSIS continuous (no dispense) prismaSOL BGK 4 K / 2.5 mEq Ca/Liter 5,000 mL 5,000 mL HEMODIALYSIS continuous (no dispense) prismaSOL BGK 4 K / 2.5 mEq Ca/Liter 5,000 mL 5,000 mL HEMODIALYSIS continuous (no dispense) dextrose 40 % 15 g 15 g ORAL PRN Or glucagon 1 mg injection (GLUCAGEN) 1 mg INTRAMUSCULAR PRN Or dextrose 50% in water 25 mL syringe 12.5 g INTRAVENOUS PRN magnesium sulfate 1 g in D5W 100 mL 1 g INTRAVENOUS PRN magnesium sulfate in water 2 g in sterile water 50 ml 2 g INTRAVENOUS PRN fentaNYL 20 mcg/mL iv infusion in NaCl 0.9% 100 mL 0-100 mcg/hr INTRAVENOUS CONTINUOUS pantoprazole 40 mg injection (PROTONIX) 40 mg INTRAVENOUS DAILY (6 AM) NORepinephrine 16 mg in D5W 250 mL (LEVOPHED) 0-30 mcg/min INTRAVENOUS CONTINUOUS Chlorhexidine Gluconate 0.12 % 15 mL (PERIDEX) 15 mL ORAL q 12 H Lines, Drains, and Airways Line Dialysis / Apheresis Double Lumen 01/13/18 1136 Left Neck 7 days Arterial Line 01/19/18 0840 Arterial Line Right Radial 1 day Central Line Quadruple Lumen 01/19/18 1056 Right Neck 1 day Drain Drain/Tube 01/12/18 Fecal Management System 8 days GI Feed/Drain 01/12/18 0100 8 days Drain/Tube 01/19/18 1015 Midline Abdomen 1 day Airway Airway Endotracheal Tube 01/12/18 1138 8 days PHYSICAL EXAM PERFORMED: Cardiovascular: Regular tachycardia Respiratory: Reduced breath sounds bilat %FIO2 Min: 80 Max: 100 Abdomen: Distended Wound vac in place-draining sanguinous drainage Extremities: Edema- Yes Generalized edema Neurologic: Sedated Unresponsive Respiratory/Nursing Documentation: O2 Therapy: Ventilator (01/20/181242) Invasive Ventilator Mode: Pressure Regulated Volume Control (01/20/181242) Set Ventilator Respiratory Rate (BPM): 24 (01/20/18 0757) Total Respiratory Rate (BPM): 28 (01/20/181242) Tidal Volume Set (mL): 480 (01/20/18 124) Exhaled Tidal Volume (mL): 358 (01/20/181242) Minute Volume (L): 18.1 (01/20/181242) Peak Inspiratory Pressure (cm H2O): 13 (01/20/18 0757) PEEP/CPAP (cm H2O): 10 (01/20/181242) HEMODYNAMIC DATA: Reviewed NUTRITION: Enteral Feeds: pt is on TPN NPO DATA: Diagnostic tests reviewed for today's visit, films/specimens were personally reviewed by me: Most recent labs and imaging results. LABS: Recent Labs 01/20/18 1050 01/20/18 0345 WBC 17.96* 14.99* RBC 3.06* 3.18* HB 9.1* 9.4* HCT 26.1* 27.1* MCV 85.3 85.2 PLT 100* 97* GLUC -- 186* BUN -- 36* CREAT -- 1.84* NA -- 135* K -- 4.5 CHLOR -- 104 CO2 -- 21 TPROT -- 4.9* ALB -- 1.5* CA -- 6.8* ALKPHOS -- 190* TBILI -- 6.0* AST -- 130* ALT -- 57 MG -- 2.6 ABG: Recent Labs 01/20/18 1050 01/20/18 0345 01/19/18 1630 PH 7.412 7.405 7.321* PO2 66.2* 65.4* 68.2* PCO2 32.1* 33.0* 42.6 Assessment/Plan IMPRESSION: Critical Care Documentation: The patient has the following organ/system impairment(s): Respiratory failure (with Hypoxemia) 1.Acute hypoxic respiratory failure/ARDS/Bilat pleuaral effusions-remains intubated on 90% O2-plan julia thoacenteses 2. Ruptured AAA Sp repair 3.SP cardiac arrest 4.Shock-Levophed support 5. Pt is nonresponsive-even to noxious stimuli-Encephalopathy 6.Thrombocytopenia 7.Nutritional support-TPN 8.Sinus tachycardia-SVT resolved-continue amiodarone drip 9.TERENCE on CKD-on CRRT-100ml/hr 10. Fentanyl drip at 150mcg/kh for pain control This patient has a high probability of sudden, clinically significant deterioration, which requires the highest level of physician preparedness to intervene urgently. I managed/supervised life or organ supporting interventions that required frequent physician assessment. I devoted my full attention to the direct care of this patient for the amount of time indicated below. Time I spent with family or surrogate(s) is included only if the patient was incapable of providing the necessary information or participating in medical decision making. Time devoted to teaching is not included. Discussed with staff/patient/family Time spent providing critical care services: 40 minutes excluding procedures. SIGNATURE: Paulo Lovelace APRN.CNS PATIENT NAME: Naveen Akins DATE: January 20, 2018 TIME: 1:29 PM Cely Correa APRN.CNP 01/20/2018 2:32 PM Signed THORACENTESIS NOTE SERVICE DATE: 01/20/2018 SERVICE TIME: 2:15 PM PROCEDURE: Right thoracentesis with Ultrasound guidance PICKING BELT OPERATOR: Cely Correa APRN.CNP VISUAL ARTS TEACHER: None PRE - PROCEDURE DIAGNOSIS: Pleural effusion POST PROCEDURE DIAGNOSIS: Pleural effusion INDICATION: Diagnostic and Therapeutic SAFE PRACTICE: Informed consent obtained and filed in patient's chart. SAFE PRACTICE Sign in Communication: Completed. Time Out: The procedural team confirmed the Correct Patient, the Correct Procedure, the Correct Site and the Correct Position (if applicable) during the audible time out: Completed. Sign Out Communication: Completed. PROCEDURE START TIME: 2:20 PM IMAGING GUIDANCE: Ultrasound was used. Images were recorded. ULTRASOUND FINDINGS: The Right chest was scanned using ultrasound. A moderate sized effusion was seen. ANESTHESIA: Local, using 10ml of 1% Lidocaine. SEDATION: No PROCEDURE DETAIL: After scanning the chest the appropriate site for thoracentesis was marked and was prepped using Chlorhexidine Gluconate Local anesthesia was administered. A standard thoracentesis needle and catheter were advanced into the right fluid collection without any difficulty. Once the fluid collection was found, the catheter was advanced further into the pleural space, the needle was removed, and drainage was initiated using a vacuum bottle method. Once drainage was completed the catheter was removed and the site was bandaged. The fluid was sent to the lab for further analysis. FLUID COLOR: Serous TOTAL FLUID REMOVED: 750mL PROCEDURE TERMINATED DUE TO: No further drainage IMMEDIATE COMPLICATIONS: None POST PROCEDURE ULTRASOUND: not done IMPRESSION: Completed Right thoracentesis with approximately 750mL of fluid withdrawal. Estimated blood loss: Minimal (Less Than 25 mL). I was present during the entire procedure and participated in all aspects of it. SIGNATURE: Cely Correa APRN.PNEUMATIC TUBE OPERATOR PATIENT NAME: Naveen Akins DATE: January 20, 2018 TIME: 2:31 PM PAGER/CONTACT #: [phone] Costa Miguel MD, [facility], [facility] 01/22/2018 1:54 PM Signed [facility] - Operative Report SURGEON: Costa Miguel MD PATIENT NAME: NAVEEN AKINS CSN: [id number] DATE OF SURGERY: 01/21/2018 DATE OF : 1940 SEX/AGE: M/77 PATIENT TYPE: I HOSP SV: LICO LOCATION: [id number] DATE OF SURGERY: 01/21/2018 SURGEON: Costa Miguel MD PREOPERATIVE DIAGNOSIS: Open abdomen. POSTOPERATIVE DIAGNOSIS: Open abdomen. PROCEDURE: Limited abdominal exploration and closure of wound with abdominal wound with retention sutures. VISUAL ARTS TEACHER: Dr. Peralta and Dr. Tristen Luz. ANESTHESIA: General. INDICATIONS: Open abdomen. Risks, benefits, and options discussed. DETAILS OF PROCEDURE: The patient was taken to the operating room, laid supine. General anesthesia was employed. He was prepped and draped in usual fashion. We removed the ABThera wound VAC and inspected the abdominal cavity in limited fashion as he is already partially closed. There was no evidence of any purulence or any other issue. We took #1 looped PDS inserted inferior aspect of incision, another one superiorly and sutured towards the center of the abdomen. Two additional retention sutures of #5 Ethibond were placed in a mattress type fashion. The abdomen was closed in this fashion and the wound VAC was placed. X- ray was obtained prior to closing because the initial instrument count was not done because the patient was a very emergent case and x-ray was negative for any instruments. The patient tolerated the procedure well. Costa Miguel MD Surgery W[facility]:modl /[id number] Dionicio Stevens MD 01/21/2018 9:01 AM Signed Vascular Surgery Progress Note SERVICE DATE: 01/21/2018 Vascular AND Thoracic Surgery Service Pager: For questions or concerns Mon-Fri 6a-5p please page [phone]. After 5pm and on Weekends and Holidays, please page [phone] if in ICU or [phone] if on RNF. Subjective SUBJECTIVE: NAEON, resp status improving s/p Thoracentesis FiO2 40% from 90% yesterday Diet: DIET NPO Parenteral Nutrition - Adult Objective OBJECTIVE: Vitals: Temp (24hrs), Av ?C (96.8 ?F), Min:35.1 ?C (95.2 ?F), Max:37 ?C (98.6 ?F) BP 132/57 Pulse 75 Temp 37 ?C (98.6 ?F) (Axillary) Resp 24 Ht 172.7 cm (5' 8) Wt 94.1 kg (207 lb 7.3 oz) SpO2 97% BMI 31.54 kg/m? O2 Therapy: Ventilator IANDO: Date 01/20/18699 - 01/21/18 0659 01/21/18 07 - 01/22/18 0659 Shift 1976-5373 7586-7975 1153-0632 24 Hour Total 1124-6478 1232-1469 4254-4166 24 Hour Total I N T A K E IV 37 138 539.9 714.9 NS 0.9% 10 31 57 98 Fentanyl Volume 5 23.5 61.5 90 Dexmedetomidine IV 25.5 75 100.5 NORepinephrine Volume 3 30 73.4 106.4 Propofol IV 19 28 73 120 Ampicillin/Sulbactam (Unasyn) IV 200 200 TPN/PPN 103 237 520 860 TPN 103 237 520 860 Shift Total 337 557 4104.9 1574.9 O U T P U T Urine Urine Incontinence/Not Saved 2 x 2 x Tubes 100 7224 618 0585 Drain/Tube Output (Drain/Tube 01/19/18 1015 Midline Abdomen) 50 256 080 1132 Drain/Tube Output (Drain/Tube 01/12/18 Fecal Management System) 0 0 0 0 Output (GI Feed/Drain 01/12/18 0100) 50 150 50 250 Dialysis 2039 2357 2498 6895 Dialysis Output (Ultrafiltration) 2039 235 2498 6895 Shift Total 2140 3407 2648 8195 Weight (kg) 96.7 96.7 94.1 94.1 94.1 94.1 94.1 94.1 MEDICATIONS Current Facility-Administered Medications: dexmedetomidine 400 mcg in NaCl 0.9% 100 mL (PRECEDEX) 0.2- 0.7 mcg/kg/hr INTRAVENOUS CONTINUOUS Parenteral Nutrition - Adult INTRAVENOUS ONCE TPN (1800 START) carboxymethylcellulose sodium 1-2 Drop (CELLUVISC) 1-2 Drop BOTH EYES PRN polyvinyl alcohol-povidone 1.4-0.6 % 1 Drop (REFRESH) 1 Drop BOTH EYES QID PRN propofol infusion (DIPRIVAN) 0-15 mcg/kg/min (Adjusted) INTRAVENOUS CONTINUOUS hydrocortisone sodium succinate (PF) 50 mg injection (Solu- CORTEF) 50 mg INTRAVENOUS q 8 H heparin 1,000 unit/mL 4,000 Units injection 4,000 Units INTRAVENOUS 3 Times weekly with dialysis heparin 5,000 Units injection 5,000 Units SUBCUTANEOUS q 12 H ampicillin-sulbactam 3 g in NaCl 0.9% 100 mL MB+ (UNASYN) 3 g INTRAVENOUS q 6 H NaCl 0.9% 1,000 mL iv bolus 1,000 mL INTRAVENOUS PRN DIALYSIS prismaSOL BGK 4 K / 2.5 mEq Ca/Liter 5,000 mL 5,000 mL HEMODIALYSIS continuous (no dispense) prismaSOL BGK 4 K / 2.5 mEq Ca/Liter 5,000 mL 5,000 mL HEMODIALYSIS continuous (no dispense) prismaSOL BGK 4 K / 2.5 mEq Ca/Liter 5,000 mL 5,000 mL HEMODIALYSIS continuous (no dispense) dextrose 40 % 15 g 15 g ORAL PRN Or glucagon 1 mg injection (GLUCAGEN) 1 mg INTRAMUSCULAR PRN Or dextrose 50% in water 25 mL syringe 12.5 g INTRAVENOUS PRN magnesium sulfate 1 g in D5W 100 mL 1 g INTRAVENOUS PRN magnesium sulfate in water 2 g in sterile water 50 ml 2 g INTRAVENOUS PRN fentaNYL 20 mcg/mL iv infusion in NaCl 0.9% 100 mL 0-100 mcg/hr INTRAVENOUS CONTINUOUS pantoprazole 40 mg injection (PROTONIX) 40 mg INTRAVENOUS DAILY (6 AM) NORepinephrine 16 mg in D5W 250 mL (LEVOPHED) 0-30 mcg/min INTRAVENOUS CONTINUOUS Chlorhexidine Gluconate 0.12 % 15 mL (PERIDEX) 15 mL ORAL q 12 H Labs: Recent Labs 01/21/18 0430 01/20/18 2210 01/20/18 1620 01/20/18 0345 01/18/18 1000 NA 136 -- -- -- 135* < > -- K 4.4 -- -- -- 4.5 < > -- CHLOR 103 -- -- -- 104 < > -- CO2 23 -- -- -- 21 < > -- BUN 42* -- -- -- 36* < > -- CREAT 1.85* -- -- -- 1.84* < > -- GLUC 209* -- -- -- 186* < > -- ANION 14 -- -- -- 15 < > -- CA 7.1* -- -- -- 6.8* < > -- MG 2.7* -- -- -- 2.6 < > -- P 4.0 -- -- -- 5.2* < > -- ALB -- -- -- -- 1.5* -- 1.7* AST -- -- -- -- 130* -- 65* ALT -- -- -- -- 57 -- 18 ALKPHOS -- -- -- -- 190* -- 124* TBILI -- -- -- -- 6.0* -- 4.3* WBC 19.46* -- 19.70* < > 14.99* < > 9.65* HB 9.1* -- 9.0* < > 9.4* < > 10.1* HCT 26.7* -- 27.1* < > 27.1* < > 30.7* PLT 100* -- 94* < > 97* < > 54* PH 7.424 7.421 7.391 < > 7.405 < > -- PCO2 31.9* 31.2* 34.2* < > 33.0* < > -- PO2 89.8 69.0* 228.3* < > 65.4* < > -- BE -3.3 -4.0 -4.1 < > -3.9 < > -- < > = values in this interval not displayed. Exam: GENERAL: No distress NEURO: pupils reactive/sluggish, not following commands, withdrawing and opening eyes to pain HEENT: normocephalic, atraumatic, +scleral icterus LUNGS: Unlabored Breathing on Ventilator CARDIAC: Regular rate and rhythm as above, Levo @ 10 ABDOMEN: Soft, mild D, NT, no PS, Vac intact w SS output EXTREMITIES: MAK, No deformities, +Anasarca, palpable pulses SKIN: Skin color, texture, turgor normal, No rashes or lesions ASSESSMENT AND PLAN: Active Hospital Problems Diagnosis Date Noted - Ruptured abdominal aortic aneurysm (AAA) ([facility]) 01/12/2018 - Obesity, Class I, BMI 30-34.9 01/16/2018 - Encephalopathy 01/13/2018 - DIC (disseminated intravascular coagulation) ([facility]) 01/12/2018 - Hemorrhagic shock ([facility]) 01/12/2018 - Acute respiratory failure ([facility]) 01/12/2018 - Cardiac arrest ([facility]) 01/12/2018 - Hypernatremia 01/12/2018 - Hypokalemia 01/12/2018 - Hypomagnesemia 01/12/2018 - Hypophosphatemia 01/12/2018 - Hyperchloremia 01/12/2018 - AAA (abdominal aortic aneurysm, ruptured) ([facility]) 01/12/2018 Overview Note: Added automatically from request for surgery [id number] 77 year old male with Ruptured AAA s/p Emergent Repair, takeback washout, repair of serosal tears x2, on 01/12, hemorrhagic shock, acute resp failure with pulm edema, TERENCE, SVT, s/p Third Look Laparotomy and?washout on 01/14, fourth look, washout, vac change on 01/16, Partial fascial closure on 01/19 ? - Vent mgmt per MICU - NPO/TPN --> likely start TFs today after OR - Wean Levo as able - Amio off - Acute blood loss and dilutional anemia and thrombocytopenia - monitor, transfuse prn - Cont Abthera VAC - TERENCE -->?CVVHD per?Nephro, diurese as tolerates - CXR greatly improved s/p R Thoracentesis - Unasyn empirically per MICU - Hypocalcemia?- replacing - cont scrotal support - Hyperbilirubinemia - likely transfusion related, consider RUQ US if fevers develop and LFTs/jaundice ?worsen - Solucortef 50mg q8h per MICU - Leukocytosis - reactive and steroid related, afebrile, monitor ? OR today for possible fascial closure Possible L Thoracentesis today ?? Assessment and plan discussed with attending: Dr. De Anda SIGNATURE: Dionicio Stevens MD PATIENT NAME: Naveen Akins DATE: January 21, 2018 TIME: 6:32 AM Vascular AND Thoracic Surgery Service Pager: For questions or concerns Mon-Tue 6a-5p please page [phone]. After 5pm and on Weekends and Holidays, please page [phone] if in ICU or [phone] if on RNF. Herman Sutton MD 01/21/2018 9:14 AM Addendum MICU - PROGRESS NOTE SERVICE DATE: 01/21/2018 SERVICE TIME: 9:06 AM Admission Date: 01/12/2018 AGE: [age] year old LOS: 9 days Subjective REASON FOR ICU ADMISSION: Patient restill critically ill, intubated on mechanical ventilation now on 40% Fio2 and 8 of PEEP after right sided thoracentesis tachypneic without vent dyssynchrony Vasopressors off CRRT resumed and fluid is pulled at rate of 100cc/hr Still encephalopathic and more agitated when weaning off sedation Going back to OR for closure today Objective PROBLEMS: ACTIVE PROBLEM LIST Gallstone Pancreatitis Ruptured Abdominal Aortic Aneurysm (Aaa) (Hcc) Dic (Disseminated Intravascular Coagulation) (Hcc) Hemorrhagic Shock (Hcc) Acute Respiratory Failure (Hcc) Cardiac Arrest (Hcc) Hypernatremia Hypokalemia Hypomagnesemia Hypophosphatemia Hyperchloremia Encephalopathy Aaa (Abdominal Aortic Aneurysm, Ruptured) (Hcc) Obesity, Class I, Bmi 30-34.9 PAST MEDICAL HISTORY Diagnosis Date - DIC (disseminated intravascular coagulation) (HCC) 01/12/2018 PAST SURGICAL HISTORY Procedure Laterality Date - LAP CHOLECYSTECT/CHOLANGIOGRAPHY 05-28-09 - REPAIR UMBILICAL NATAN,5+Y/O,REDUC 05-28-09 Social History Marital status: Spouse name: Shelly Years of education: 11 Number of children: 4 Occupational History 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 BP 132/57 Pulse 74 Temp (Src) 97.3 (Axillary) Resp 17 Ht 5' 8 (1.73m) Wt 207 lb 7.3 oz (94.1kg) SpO2 96% BMI 31.55 kg/(m2). Temp (24hrs), Av.9 ?C (96.7 ?F), Min:35.1 ?C (95.2 ?F), Max:37 ?C (98.6 ?F) NET FLUID BALANCE Intake/Output Summary (Last 24 hours) at 01/21/18 0906 Last data filed at 01/21/18 0730 Gross per 24 hour Intake 1614.9 ml Output 7783 ml Net -6168.1 ml MEDICATIONS Current Facility-Administered Medications: dexmedetomidine 400 mcg in NaCl 0.9% 100 mL (PRECEDEX) 0.2- 0.7 mcg/kg/hr INTRAVENOUS CONTINUOUS Parenteral Nutrition - Adult INTRAVENOUS ONCE TPN (1800 START) carboxymethylcellulose sodium 1-2 Drop (CELLUVISC) 1-2 Drop BOTH EYES PRN polyvinyl alcohol-povidone 1.4-0.6 % 1 Drop (REFRESH) 1 Drop BOTH EYES QID PRN propofol infusion (DIPRIVAN) 0-15 mcg/kg/min (Adjusted) INTRAVENOUS CONTINUOUS hydrocortisone sodium succinate (PF) 50 mg injection (Solu- CORTEF) 50 mg INTRAVENOUS q 8 H heparin 1,000 unit/mL 4,000 Units injection 4,000 Units INTRAVENOUS 3 Times weekly with dialysis heparin 5,000 Units injection 5,000 Units SUBCUTANEOUS q 12 H ampicillin-sulbactam 3 g in NaCl 0.9% 100 mL MB+ (UNASYN) 3 g INTRAVENOUS q 6 H NaCl 0.9% 1,000 mL iv bolus 1,000 mL INTRAVENOUS PRN DIALYSIS prismaSOL BGK 4 K / 2.5 mEq Ca/Liter 5,000 mL 5,000 mL HEMODIALYSIS continuous (no dispense) prismaSOL BGK 4 K / 2.5 mEq Ca/Liter 5,000 mL 5,000 mL HEMODIALYSIS continuous (no dispense) prismaSOL BGK 4 K / 2.5 mEq Ca/Liter 5,000 mL 5,000 mL HEMODIALYSIS continuous (no dispense) dextrose 40 % 15 g 15 g ORAL PRN Or glucagon 1 mg injection (GLUCAGEN) 1 mg INTRAMUSCULAR PRN Or dextrose 50% in water 25 mL syringe 12.5 g INTRAVENOUS PRN magnesium sulfate 1 g in D5W 100 mL 1 g INTRAVENOUS PRN magnesium sulfate in water 2 g in sterile water 50 ml 2 g INTRAVENOUS PRN fentaNYL 20 mcg/mL iv infusion in NaCl 0.9% 100 mL 0-100 mcg/hr INTRAVENOUS CONTINUOUS pantoprazole 40 mg injection (PROTONIX) 40 mg INTRAVENOUS DAILY (6 AM) NORepinephrine 16 mg in D5W 250 mL (LEVOPHED) 0-30 mcg/min INTRAVENOUS CONTINUOUS Chlorhexidine Gluconate 0.12 % 15 mL (PERIDEX) 15 mL ORAL q 12 H Lines, Drains, and Airways Line Dialysis / Apheresis Double Lumen 01/13/18 1136 Left Neck 7 days Arterial Line 01/19/18 0840 Arterial Line Right Radial 2 days Central Line Quadruple Lumen 01/19/18 1056 Right Neck 1 day Drain Drain/Tube 01/12/18 Fecal Management System 9 days GI Feed/Drain 01/12/18 0100 9 days Drain/Tube 01/19/18 1015 Midline Abdomen 1 day Airway Airway Endotracheal Tube 01/12/18 1138 8 days PHYSICAL EXAM PERFORMED: General:sedated intubated Cardiovascular: Regular rhythm Respiratory: tachypneic, on 40% and 8 PEEP Abdomen: Soft, open wound Extremities: Edema- No Neurologic: sedated Respiratory/Nursing Documentation: O2 Therapy: Ventilator (01/21/18 0730) Invasive Ventilator Mode: Pressure Regulated Volume Control (01/21/18318) Set Ventilator Respiratory Rate (BPM): 20 (01/21/18318) Total Respiratory Rate (BPM): 34 (01/21/18318) Tidal Volume Set (mL): 480 (01/21/18318) Exhaled Tidal Volume (mL): 562 (01/21/18318) Minute Volume (L): 11.3 (01/21/18318) Peak Inspiratory Pressure (cm H2O): 14 (01/21/18318) PEEP/CPAP (cm H2O): 8 (01/21/18318) HEMODYNAMIC DATA: Reviewed NUTRITION: Enteral Feeds: No TPN DATA: Diagnostic tests reviewed for today's visit, films/specimens were personally reviewed by me: Most recent labs and imaging results. LABS: Recent Labs 01/21/18 0430 01/20/18 0345 WBC 19.46* < > 14.99* RBC 3.12* < > 3.18* HB 9.1* < > 9.4* HCT 26.7* < > 27.1* MCV 85.6 < > 85.2 PLT 100* < > 97* GLUC 209* -- 186* BUN 42* -- 36* CREAT 1.85* -- 1.84* NA 136 -- 135* K 4.4 -- 4.5 CHLOR 103 -- 104 CO2 23 -- 21 TPROT -- -- 4.9* ALB -- -- 1.5* CA 7.1* -- 6.8* ALKPHOS -- -- 190* TBILI -- -- 6.0* AST -- -- 130* ALT -- -- 57 MG 2.7* -- 2.6 < > = values in this interval not displayed. ABG: Recent Labs 01/21/18 0430 01/20/18 2210 01/20/18 1620 PH 7.424 7.421 7.391 PO2 89.8 69.0* 228.3* PCO2 31.9* 31.2* 34.2* Assessment/Plan IMPRESSION: Acute Hypoxic Respiratory Failure on mechanical ventilation VOLUME OVERLOAD Large bilateral effusion s/p right side thoracentesis Ruptured AAA s/p surgical repair s/p Cardiac Arrest Encephalopathy??? TERENCE on CKD?- Suspected ATN - On CRRT Lactic Acidosis Sinus Tachycardia Thrombocytopenia SVT - Resolved MMP ? PLANS: OR today for closure? Continue?mechanical ventilation CRRT to help removing fluid, if needed vasopressors to be used to help keep his balance negative Fentanyl ?Drip for pain Propofol for sedation HD better with hydrocortisone EEG impressive for severe encephalopathy, no evidence of epileptiform activity/seizures AAA management/post-operative care per vascular surgery Continue w/ amiodarone gtt, monitor rhythm. ?No further runs of SVT Cardiology consulted, appreciate recs Continue TPN SCDs/PPI/ Heparin SQ per primary team ? ? Overall prognosis is poor, patient with multiorgan failure, TERENCE on CRRT and encephalopathic and difficult wean off sedation, Recommend discussion goals of care/Palliative care ? Critical Care Documentation:?The patient has the following organ/system impairment(s): ?Circulatory shock, Complex life-threatening ?medical problem(s) and Respiratory failure (Acute, with Hypoxemia) ? ? This patient has a high probability of sudden, clinically significant deterioration, which requires the highest level of physician preparedness to intervene urgently. ?I managed/supervised life or organ supporting interventions that required frequent physician assessment. ?I devoted my full attention to the direct care of this patient for the amount of time indicated below. ?Time I spent with family or surrogate(s) is included only if the patient was incapable of providing the necessary information or participating in medical decision making. ?Time devoted to teaching is not included. ? Critical Care Time devoted to this patient is ?30?minutes ? SIGNATURE: Herman Sutton MD PATIENT NAME: Naveen Akins DATE: January 21, 2018 TIME: 9:06 AM Previous Version Vicky Devi MD, 01/22/2018 9:30 AM Addendum Subjective. Intubated with FIO2 40%. sedated 01/21/18 0700 01/21/18 0715 01/21/18 0730 01/21/18 0745 BP: Pulse: 76 76 86 74 Resp: 17 Temp: 36.3 ?C (97.3 ?F) TempSrc: Axillary SpO2: 97% 97% 96% 96% Weight: Height: Intubated. Sedated. Not responsive No JVD Heart - S1 S2 Lungs - b/l air entry. CTA Abdomen - soft, non distended, no organomegaly LE - + edema, No cyanosis No rash Lab: Recent Labs 01/21/18 0430 01/20/18 1620 01/20/18 1050 01/20/18 0345 01/19/18 1630 WBC 19.46* 19.70* 17.96* 14.99* 13.43* RBC 3.12* 3.11* 3.06* 3.18* 3.37* HB 9.1* 9.0* 9.1* 9.4* 9.8* HCT 26.7* 27.1* 26.1* 27.1* 28.9* PLT 100* 94* 100* 97* 91* MCV 85.6 87.1 85.3 85.2 85.8 MCH 29.2 28.9 29.7 29.6 29.1 MPV -- 12.3* -- 12.5* 11.5 RDW 19.9* 19.8* 19.4* 19.1* 18.6* Recent Labs 01/21/18 0430 01/20/18 0345 01/19/18 1630 01/18/18 1000 01/14/18 1555 GLUC 209* 186* 241* < > -- < > 78 NA 136 135* 138 < > -- < > 142 K 4.4 4.5 4.3 < > -- < > 4.5 CHLOR 103 104 106 < > -- < > 111* CO2 23 21 22 < > -- < > 22 CREAT 1.85* 1.84* 1.90* < > -- < > 2.10* BUN 42* 36* 31* < > -- < > 17 ANION 14 15 14 < > -- < > 14 CA 7.1* 6.8* 6.5* < > -- < > 6.4* TPROT -- 4.9* -- -- 4.8* -- 3.7* ALB -- 1.5* -- -- 1.7* -- 1.7* TBILI -- 6.0* -- -- 4.3* -- 2.9* ALKPHOS -- 190* -- -- 124* -- 67 AST -- 130* -- -- 65* -- 69* ALT -- 57 -- -- 18 -- 13 < > = values in this interval not displayed. Assessment/ Plan 1. Acute kidney injury on chronic kidney disease stage 3. Baseline SCr is 1.36 mg/dL on 11/14/17. CKD is likely due to nephrosclerosis related to PAD. TERENCE is 2/2 ischemic ATN from shock. Patient is CRRT dependent for fluid and metabolic support Anuric. No recovery of kidney function I will continue the same CVVHDF parameters with net UF 100 cc/hour ? 2. Shock. Likely hemorrhagic shock-massive blood loss from ruptured AAA +/- adrenal insufficiency. Continue hydrocortisone. On levophed D/w Dr. Sutton. ? 5. Ruptured AAA. s/p repair 01/12/18. Management as per vascular surgery.Going to OR today for closure ? 6. Acute hypoxic respiratory failure. Ventilator dependent. Vent management as per ICU. O>I with CRRT UF. Will d/w Dr. Herman Devi MD Previous Version Tim Tabor MD 01/21/2018 10:14 AM Signed ANESTHESIOLOGY DAY OF SURGERY NOTE SERVICE DATE: 01/21/2018 SERVICE TIME: 10:10 AM : 1940 Procedure(s) (LRB): EXPLORATORY LAPAROTOMY (N/A) CLOSURE WOUND ABDOMEN (N/A) APPLICATION WOUND VAC ABDOMEN TOTAL WOUND SURFACE LESS THAN 50 SQ CENTIMETERS (N/A) Surgeon(s): Costa Ramon (Res) Sukh Estimated body mass index is 31.54 kg/m? as calculated from the following: Height as of this encounter: 172.7 cm (5' 8). Weight as of this encounter: 94.1 kg (207 lb 7.3 oz). Most recent hematocrit and potassium results: Hematocrit 26.7 01/21/2018 Potassium 4.4 01/21/2018 ANES DOS/PREOP NOTE: Vitals: 01/21/18 0700 01/21/18 0715 01/21/18 0730 01/21/18 0745 BP: Pulse: 76 76 86 74 Resp: 16 16 24 17 Temp: 36.3 ?C (97.3 ?F) TempSrc: Axillary SpO2: 97% 97% 96% 96% Weight: Height: ACTIVE PROBLEM LIST Gallstone Pancreatitis Ruptured Abdominal Aortic Aneurysm (Aaa) (Hcc) Dic (Disseminated Intravascular Coagulation) (Hcc) Hemorrhagic Shock (Hcc) Acute Respiratory Failure (Hcc) Cardiac Arrest (Hcc) Hypernatremia Hypokalemia Hypomagnesemia Hypophosphatemia Hyperchloremia Encephalopathy Aaa (Abdominal Aortic Aneurysm, Ruptured) (Hcc) Obesity, Class I, Bmi 30-34.9 PAST MEDICAL HISTORY Diagnosis Date - DIC (disseminated intravascular coagulation) (HCC) 01/12/2018 PAST SURGICAL HISTORY Procedure Laterality Date - LAP CHOLECYSTECT/CHOLANGIOGRAPHY 05-28-09 - REPAIR UMBILICAL NATAN,5+Y/O,REDUC 05-28-09 FAMILY HISTORY Problem Relation Age of Onset - Coronary Artery Disease Father - None Mother Social History: Social History Substance Use Topics - Smoking status: Never Smoker - Smokeless tobacco: Not on file - Alcohol use No No current facility-administered medications on file prior to encounter. Current Outpatient Prescriptions on File Prior to Encounter: metoprolol succinate(TOPROL XL 50 MG 24 HR TAB) Take one(1) tablet daily. ASPIRIN 325 MG TAB Take one(1) tablet daily. triamterene/hydrochlorothiazid(DYAZIDE 37.5 MG-25 MG CAP) take one half (1/2) tablet daily LIPITOR 10 MG TAB Take one(1) tablet daily. Current Facility-Administered Medications: [MAR Hold due to Transfer] Parenteral Nutrition - Adult INTRAVENOUS ONCE TPN (1800 START) H Edwin Dudley [MAR Hold due to Transfer] dexmedetomidine 400 mcg in NaCl 0.9% 100 mL (PRECEDEX) 0.2-0.7 mcg/kg/hr INTRAVENOUS CONTINUOUS Paulo ([employer] Supervisor) [place] Last Rate: 9.67 mL/hr at 01/21/18 0730 0.4 mcg/kg/hr at 01/21/18729 [MAR Hold due to Transfer] Parenteral Nutrition - Adult INTRAVENOUS ONCE TPN (1800 START) H Edwin Dudley Last Rate: 75 mL/hr at 01/21/18729 [MAR Hold due to Transfer] carboxymethylcellulose sodium 1- 2 Drop (CELLUVISC) 1-2 Drop BOTH EYES PRN Venkat Paniagua [MAR Hold due to Transfer] polyvinyl alcohol-povidone 1.4- 0.6 % 1 Drop (REFRESH) 1 Drop BOTH EYES QID PRN Paulo (Meter Repair Shop Supervisor) [place] 1 Drop at 01/19/18 2315 [MAR Hold due to Transfer] propofol infusion (DIPRIVAN) 0- 15 mcg/kg/min (Adjusted) INTRAVENOUS CONTINUOUS Dionicio (Res) Stevens Last Rate: 7.44 mL/hr at 01/21/18 0745 15 mcg/kg/min at 01/21/18 07 [MAR Hold due to Transfer] hydrocortisone sodium succinate (PF) 50 mg injection (Solu-CORTEF) 50 mg INTRAVENOUS q 8 H Shen Lorenzo 50 mg at 01/21/18 0530 [MAR Hold due to Transfer] heparin 1,000 unit/mL 4,000 Units injection 4,000 Units INTRAVENOUS 3 Times weekly with dialysis Troy Godoy 4,000 Units at 01/17/182225 [MAR Hold due to Transfer] heparin 5,000 Units injection 5,000 Units SUBCUTANEOUS q 12 H Mervin (Res) Wally 5,000 Units at 01/20/182037 [MAR Hold due to Transfer] ampicillin-sulbactam 3 g in NaCl 0.9% 100 mL MB+ (UNASYN) 3 g INTRAVENOUS q 6 H Herman A Herman Last Rate: 200 mL/hr at 01/21/18 0530 3 g at 01/21/18 0530 [MAR Hold due to Transfer] NaCl 0.9% 1,000 mL iv bolus 1,000 mL INTRAVENOUS PRN DIALYSIS Shen Lorenzo [MAR Hold due to Transfer] prismaSOL BGK 4 K / 2.5 mEq Ca/Liter 5,000 mL 5,000 mL HEMODIALYSIS continuous (no dispense) Shen Lorenzo Last Rate: 700 mL/hr at 01/16/18 1300 5,000 mL at 01/21/18 0200 [MAR Hold due to Transfer] prismaSOL BGK 4 K / 2.5 mEq Ca/Liter 5,000 mL 5,000 mL HEMODIALYSIS continuous (no dispense) Shen Lorenzo Last Rate: 700 mL/hr at 01/16/18 1300 5,000 mL at 01/21/18 0200 [MAR Hold due to Transfer] prismaSOL BGK 4 K / 2.5 mEq Ca/Liter 5,000 mL 5,000 mL HEMODIALYSIS continuous (no dispense) Shen Lorenzo Last Rate: 700 mL/hr at 01/16/18 1300 5,000 mL at 01/21/18 0200 [MAR Hold due to Transfer] dextrose 40 % 15 g 15 g ORAL PRN Jack Regula Or [MAR Hold due to Transfer] glucagon 1 mg injection (GLUCAGEN) 1 mg INTRAMUSCULAR PRN Jack Regula Or [MAR Hold due to Transfer] dextrose 50% in water 25 mL syringe 12.5 g INTRAVENOUS PRN Jack Regula [MAR Hold due to Transfer] magnesium sulfate 1 g in D5W 100 mL 1 g INTRAVENOUS PRN Emilie (Res) Cardella Last Rate: 100 mL/hr at 01/15/18 0016 1 g at 01/15/18 0016 [MAR Hold due to Transfer] magnesium sulfate in water 2 g in sterile water 50 ml 2 g INTRAVENOUS PRN Emilie (Res) Cardella Last Rate: 25 mL/hr at 01/13/18 1004 2 g at 01/13/18 1004 [MAR Hold due to Transfer] fentaNYL 20 mcg/mL iv infusion in NaCl 0.9% 100 mL 0-100 mcg/hr INTRAVENOUS CONTINUOUS Smooth C Winston Last Rate: 7.5 mL/hr at 01/21/18 0740 150 mcg/hr at 01/21/18 0740 [MAR Hold due to Transfer] pantoprazole 40 mg injection (PROTONIX) 40 mg INTRAVENOUS DAILY (6 AM) Emilie (Res) Cardella 40 mg at 01/21/18 0530 [MAR Hold due to Transfer] NORepinephrine 16 mg in D5W 250 mL (LEVOPHED) 0-30 mcg/min INTRAVENOUS CONTINUOUS Dionicio (Res) Stevens Last Rate: 9.38 mL/hr at 01/21/18 0730 10 mcg/min at 01/21/18 0730 [MAR Hold due to Transfer] Chlorhexidine Gluconate 0.12 % 15 mL (PERIDEX) 15 mL ORAL q 12 H Elder Granda 15 mL at 01/21/18 0740 Allergies: ALLERGIES No Known Allergies DOS EXAM: Adequate NPO Status: Yes Anesthetic Risks, Benefits, Alternatives, Personnel and Consent Discussed: Yes with family Patient agrees to proceed: Yes, per patient's parent/guardian Previous Anesthesia: No history of adverse event Airway Assessment: Patient intubated or has existing tracheostomy. Symptoms of Sleep Apnea: Age over 50 (77 year old) and Male gender Dentition: Pt intubated. Unable to fully assess Additional Physical Exam: Lungs: Patient health status unchanged since recent history and physical. See history and physical for exam findings. Cardiac: Patient health status unchanged since recent history and physical. See history and physical for exam findings. Additional Pertinent Findings: N/A Blood Products: Will accept Blood/Blood Products Anesthetic Plan: General Anesthetic Monitoring: Standard ASA Monitors, Invasive Hemodynamic Monitoring Arterial line in situ, Potential Prolonged Intubation, Potential ICU Admission Postop and Potential Multiple Transfusions Pain Management Plan: Parenteral or Oral ASA Class: 4 Other Medical Problems: ? 77 year old male with Ruptured AAA s/p Emergent Repair, takeback washout, repair of serosal tears x2, on 01/12, hemorrhagic shock, acute resp failure with pulm edema, TERENCE, SVT, s/p Third Look Laparotomy and?washout on 01/14, fourth look, washout, vac change on 01/16, Partial fascial closure on 01/19. Pt s/p R thoracentesis yesterday with significant improvement in oxygenation/ventilation now they will reattempt to close the abdomen. Other hx includes hx SVT, TERENCE on CRRT, shock on levo at 10. Chronic Beta Lyric medication administered within 24 hours: N/A I have interviewed and examined the patient. I have reviewed the medical record and/or the pre-anesthesia evaluation, pertinent labs, and test results. Significant changes in the patient's condition since the History and Physical, not otherwise documented in primary service progress notes: No This contains updated information obtained within 48 hours of Surgery/Procedure. SIGNATURE: Tim Tabor MD PATIENT NAME: Naveen Akins DATE: January 21, 2018 TIME: 10:10 AM CSN: [id number] Mily Gonzalez RN, RN 01/21/2018 11:19 AM Signed Post op report given Tristen Luz MD 01/21/2018 11:30 AM Attested Attestation signed by Costa Miguel at 01/21/2018 1:32 PM I was present for the critical and coleman portions of the surgery and I was immediately available to provide assistance. Costa Miguel MD, FACS, [facility] BRIEF OPERATIVE / PROCEDURE NOTE LOG ID: [id number] SURGERY/PROCEDURE DATE: 01/21/2018 INCISION/PROCEDURE START TIME: 10:43 AM INCISION CLOSE/PROCEDURE END TIME: 11:17 AM SURGEON(S)/PROCEDURALIST(S) AND VISUAL ARTS TEACHER(S): Surgeon(s) and Role: * Costa Miguel - Primary * Tristen Luz - Resident - Assisting * Emilie TylerResLisette Peralta - Resident - Assisting No Additional Staff SURGERY/PROCEDURE(S): Abdominal closure, placement of wound vac ANESTHESIA: General FINDINGS: Fascia closed. No leak from wound vac. ESTIMATED BLOOD LOSS: 0 ml SPECIMENS: None COMPLICATIONS: None PRE-OP/PRE-PROCEDURE DIAGNOSIS: Ruptured abdominal aortic aneurysm POST-OP/POST-PROCEDURE DIAGNOSIS: Ruptured abdominal aortic aneurysm (AAA) (HCC) [I71.3] SIGNATURE: Tristen Luz MD PATIENT NAME: Naveen Akins DATE: January 21, 2018 TIME: 11:29 AM PAGER/CONTACT #: [phone] Paulo Lovelace APRN.[facility] 01/21/2018 12:18 PM Signed MICU - PROGRESS NOTE SERVICE DATE: 01/21/2018 SERVICE TIME: 12:01 PM Admission Date: 01/12/2018 AGE: [age] year old LOS: 9 days Subjective REASON FOR ICU ADMISSION: Respiratory Failure and Shock Objective PROBLEMS: ACTIVE PROBLEM LIST Gallstone Pancreatitis Ruptured Abdominal Aortic Aneurysm (Aaa) (Hcc) Dic (Disseminated Intravascular Coagulation) (Hcc) Hemorrhagic Shock (Hcc) Acute Respiratory Failure (Hcc) Cardiac Arrest (Hcc) Hypernatremia Hypokalemia Hypomagnesemia Hypophosphatemia Hyperchloremia Encephalopathy Aaa (Abdominal Aortic Aneurysm, Ruptured) (Hcc) Obesity, Class I, Bmi 30-34.9 PAST MEDICAL HISTORY Diagnosis Date - DIC (disseminated intravascular coagulation) (HCC) 01/12/2018 PAST SURGICAL HISTORY Procedure Laterality Date - LAP CHOLECYSTECT/CHOLANGIOGRAPHY 05-28-09 - REPAIR UMBILICAL NATAN,5+Y/O,REDUC 05-28-09 Social History Marital status: Spouse name: Shelly Years of education: 11 Number of children: 4 Occupational History 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 BP 132/57 Pulse 74 Temp (Src) 97.3 (Axillary) Resp 17 Ht 5' 8 (1.73m) Wt 207 lb 7.3 oz (94.1kg) SpO2 96% BMI 31.55 kg/(m2). Temp (24hrs), Av.9 ?C (96.7 ?F), Min:35.1 ?C (95.2 ?F), Max:37 ?C (98.6 ?F) NET FLUID BALANCE Intake/Output Summary (Last 24 hours) at 01/21/18 1201 Last data filed at 01/21/18 0900 Gross per 24 hour Intake 1614.9 ml Output 7868 ml Net -6253.1 ml MEDICATIONS Current Facility-Administered Medications: [MAR Hold due to Transfer] dexmedetomidine 400 mcg in NaCl 0.9% 100 mL (PRECEDEX) 0.2-0.7 mcg/kg/hr INTRAVENOUS CONTINUOUS [MAR Hold due to Transfer] Parenteral Nutrition - Adult INTRAVENOUS ONCE TPN (1800 START) [MAR Hold due to Transfer] carboxymethylcellulose sodium 1- 2 Drop (CELLUVISC) 1-2 Drop BOTH EYES PRN [MAR Hold due to Transfer] polyvinyl alcohol-povidone 1.4- 0.6 % 1 Drop (REFRESH) 1 Drop BOTH EYES QID PRN [MAR Hold due to Transfer] propofol infusion (DIPRIVAN) 0- 15 mcg/kg/min (Adjusted) INTRAVENOUS CONTINUOUS [MAR Hold due to Transfer] hydrocortisone sodium succinate (PF) 50 mg injection (Solu-CORTEF) 50 mg INTRAVENOUS q 8 H [MAR Hold due to Transfer] heparin 1,000 unit/mL 4,000 Units injection 4,000 Units INTRAVENOUS 3 Times weekly with dialysis [MAR Hold due to Transfer] heparin 5,000 Units injection 5,000 Units SUBCUTANEOUS q 12 H [MAR Hold due to Transfer] ampicillin-sulbactam 3 g in NaCl 0.9% 100 mL MB+ (UNASYN) 3 g INTRAVENOUS q 6 H [MAR Hold due to Transfer] NaCl 0.9% 1,000 mL iv bolus 1,000 mL INTRAVENOUS PRN DIALYSIS [MAR Hold due to Transfer] prismaSOL BGK 4 K / 2.5 mEq Ca/Liter 5,000 mL 5,000 mL HEMODIALYSIS continuous (no dispense) [MAR Hold due to Transfer] prismaSOL BGK 4 K / 2.5 mEq Ca/Liter 5,000 mL 5,000 mL HEMODIALYSIS continuous (no dispense) [MAR Hold due to Transfer] prismaSOL BGK 4 K / 2.5 mEq Ca/Liter 5,000 mL 5,000 mL HEMODIALYSIS continuous (no dispense) [MAR Hold due to Transfer] dextrose 40 % 15 g 15 g ORAL PRN Or [MAR Hold due to Transfer] glucagon 1 mg injection (GLUCAGEN) 1 mg INTRAMUSCULAR PRN Or [MAR Hold due to Transfer] dextrose 50% in water 25 mL syringe 12.5 g INTRAVENOUS PRN [MAR Hold due to Transfer] magnesium sulfate 1 g in D5W 100 mL 1 g INTRAVENOUS PRN [MAR Hold due to Transfer] magnesium sulfate in water 2 g in sterile water 50 ml 2 g INTRAVENOUS PRN [MAR Hold due to Transfer] fentaNYL 20 mcg/mL iv infusion in NaCl 0.9% 100 mL 0-100 mcg/hr INTRAVENOUS CONTINUOUS [MAR Hold due to Transfer] pantoprazole 40 mg injection (PROTONIX) 40 mg INTRAVENOUS DAILY (6 AM) [MAR Hold due to Transfer] NORepinephrine 16 mg in D5W 250 mL (LEVOPHED) 0-30 mcg/min INTRAVENOUS CONTINUOUS [MAR Hold due to Transfer] Chlorhexidine Gluconate 0.12 % 15 mL (PERIDEX) 15 mL ORAL q 12 H Lines, Drains, and Airways Line Dialysis / Apheresis Double Lumen 01/13/18 1136 Left Neck 8 days Arterial Line 01/19/18 0840 Arterial Line Right Radial 2 days Central Line Quadruple Lumen 01/19/18 1056 Right Neck 2 days Drain GI Feed/Drain 01/12/18 0100 9 days Drain/Tube 01/19/18 1015 Midline Abdomen 2 days Airway Airway Endotracheal Tube 01/12/18 1138 9 days PHYSICAL EXAM PERFORMED: Cardiovascular: Regular rhythm Respiratory: Reduced breath sounds bilat and Rhonchi (R) %FIO2 Min: 40 Max: 90 Abdomen: SP abdominal wound closure Wound Vac in place Extremities: Edema- Generalized edema Neurologic: Sedated Respiratory/Nursing Documentation: O2 Therapy: Ventilator (01/21/18 1141) Invasive Ventilator Mode: Pressure Regulated Volume Control (08/18/18 1141) Set Ventilator Respiratory Rate (BPM): 20 (01/21/181140) Total Respiratory Rate (BPM): 20 (01/21/181140) Tidal Volume Set (mL): 480 (01/21/181140) Exhaled Tidal Volume (mL): 470 (01/21/181140) Minute Volume (L): 10.1 (01/21/181140) Peak Inspiratory Pressure (cm H2O): 33 (01/21/181140) PEEP/CPAP (cm H2O): 8 (01/21/181140) HEMODYNAMIC DATA: Reviewed NUTRITION: Enteral Feeds: TPN at 100ml/hr DATA: Diagnostic tests reviewed for today's visit, films/specimens were personally reviewed by me: Most recent labs and imaging results. LABS: Recent Labs 01/21/18 0430 01/20/18 0345 WBC 19.46* < > 14.99* RBC 3.12* < > 3.18* HB 9.1* < > 9.4* HCT 26.7* < > 27.1* MCV 85.6 < > 85.2 PLT 100* < > 97* GLUC 209* -- 186* BUN 42* -- 36* CREAT 1.85* -- 1.84* NA 136 -- 135* K 4.4 -- 4.5 CHLOR 103 -- 104 CO2 23 -- 21 TPROT -- -- 4.9* ALB -- -- 1.5* CA 7.1* -- 6.8* ALKPHOS -- -- 190* TBILI -- -- 6.0* AST -- -- 130* ALT -- -- 57 MG 2.7* -- 2.6 < > = values in this interval not displayed. ABG: Recent Labs 01/21/18 0430 01/20/18 2210 01/20/18 1620 PH 7.424 7.421 7.391 PO2 89.8 69.0* 228.3* PCO2 31.9* 31.2* 34.2* Assessment/Plan IMPRESSION: Critical Care Documentation: The patient has the following organ/system impairment(s): Respiratory failure (with Hypoxemia) 1.Acute hypoxic respiratory failure/ARDS/Bilat pleuaral effusions-remains intubated on 50% O2-SP right thoracentesis for 750ml 2. Ruptured AAA Sp repair-Wound closed this morning 3.SP cardiac arrest 4.Shock-Levophed support 5. Pt is nonresponsive-even to noxious stimuli-Encephalopathy 6.Thrombocytopenia 7.Nutritional support-TPN 8.Sinus tachycardia-SVT resolved-continue amiodarone drip 9.TERENCE on CKD-on CRRT 10. Fentanyl drip at 75mcg/kh for pain control ? This patient has a high probability of sudden, clinically significant deterioration, which requires the highest level of physician preparedness to intervene urgently. I managed/supervised life or organ supporting interventions that required frequent physician assessment. I devoted my full attention to the direct care of this patient for the amount of time indicated below. Time I spent with family or surrogate(s) is included only if the patient was incapable of providing the necessary information or participating in medical decision making. Time devoted to teaching is not included. Discussed with staff/patient/family Time spent providing critical care services: 30 minutes excluding procedures. SIGNATURE: Paulo Lovelace APRN.MAINTENANCE TEAM MEMBER PATIENT NAME: Naveen Akins DATE: January 21, 2018 TIME: 12:01 PM Tim Tabor MD 01/21/2018 12:06 PM Signed POST ANESTHESIA EVALUATION NOTE SERVICE DATE: 01/21/2018 SERVICE TIME: 12:05 PM : 1940 Vitals: 01/20/18 1900 01/21/18 0000 01/21/18 0500 01/21/18 0730 Temp: 36 ?C (96.8 ?F) 36.8 ?C (98.2 ?F) 37 ?C (98.6 ?F) 36.3 ?C (97.3 ?F) 01/21/18 0700 01/21/18 0715 01/21/18 0730 01/21/18 0745 Arterial BP 1: 128/59 129/60 133/61 137/62 BP: 01/21/18 0700 01/21/18 0715 01/21/18 0730 01/21/18 0745 Pulse: 76 76 86 74 01/21/18 0700 01/21/18 0715 01/21/18 0730 01/21/18 0745 Resp: 16 16 24 17 01/21/18 0700 01/21/18 0715 01/21/18 0730 01/21/18 0745 SpO2: 97% 97% 96% 96% Validated Vital Signs: Yes POST ANES STATUS: PACU/ICU Patient Condition: Guarded Neurological Status: On intravenous sedation. Pulmonary Status: On invasive mechanical ventilation. Airway Control: Intubated on mechanical ventilation. Cardiovascular Status: Stable and On vasopressor Pain: Adequately controlled Postoperative Nausea/Vomiting: No significant post operative nausea or vomiting Postoperative Hydration Status: Adequate. Anesthetic Complications: None Recommendation: Further care per PACU/ICU/Floor team Other Remarks: SIGNATURE: Tim Tabor MD PATIENT NAME: Naveen Akins DATE: January 21, 2018 TIME: 12:05 PM PAGER/CONTACT #: [phone] Tracey De La Fuente, RN, RN 01/21/2018 12:49 PM Signed CRRT restarted using same orders after pt returned form OR. M100 dialyzer. Access via left neck temp HD cath. starting TMP 101. Report to Jose Stevens MD 01/22/2018 8:19 AM Attested Attestation signed by Марина De Anda at 01/22/2018 10:32 AM [facility] STAFF PHYSICIAN NOTE OF PERSONAL INVOLVEMENT IN CARE IMPRESSION: AAA PLAN: fascial closure in OR yesterday. Per report, family did not want tube feeds started last night, however there has been discussion about trach/PEG? Will need neuro eval. I have reviewed the documentation above obtained and documented by the Resident and have reviewed comorbidities and relevant tests. I have personally performed a face to face assessment of the patient and I have discussed the case and management of the patient's care. Counseling (Inpatient): I personally spent 20 total minutes involved in the care of this patient. Greater than 50% of the time was spent counseling and/or coordinating care for the patient, the nature of which is noted above. STAFF PHYSICIAN:: Марина De Anda MD DATE of SERVICE: 01/22/2018 TIME of SERVICE: 10:30 AM Vascular Surgery Progress Note SERVICE DATE: 01/22/2018 Vascular AND Thoracic Surgery Service Pager: For questions or concerns Tue-Tue 6a-5p please page [phone]. After 5pm and on Weekends and Holidays, please page [phone] if in ICU or [phone] if on RNF. Subjective SUBJECTIVE: Mild hypotension overnight requiring Levo turned back on Diet: Parenteral Nutrition - Adult DIET TUBE FEED - CONTIN (NO TRAY) Objective OBJECTIVE: Vitals: Temp (24hrs), Av.9 ?C (96.6 ?F), Min:34.7 ?C (94.5 ?F), Max:36.5 ?C (97.7 ?F) BP 132/57 Pulse 75 Temp 36 ?C (96.8 ?F) (Axillary) Resp 20 Ht 172.7 cm (5' 8) Wt 94.1 kg (207 lb 7.3 oz) SpO2 97% BMI 31.54 kg/m? O2 Therapy: Ventilator IANDO: Date 01/21/18699 - 01/22/1865801/22/18699 - 01/23/18 0659 Shift 8875-3618 1055-3649 3181-3062 24 Hour Total 2868-1040 9277-8220 3786-5541 24 Hour Total I N T A K E IV 43 597 587.3 1227.3 NS 0.9% 13 13 Fentanyl Volume 6 50 115.3 171.3 Amiodarone 200 200 Dexmedetomidine IV 8 67 76 151 NORepinephrine Volume 8 180 124 312 Propofol IV 8 100 72 180 Ampicillin/Sulbactam (Unasyn) IV 200 200 TPN/PPN 62 62 TPN 62 62 Shift Total 105 597 587.3 1289.3 O U T P U T Urine Urine Incontinence/Not Saved 1 x 1 x Tubes 105 105 Drain/Tube Output (Drain/Tube 01/19/18 1015 Midline Abdomen) 75 75 Drain/Tube Output ([REMOVED] Drain/Tube 01/12/18 Fecal Management System 01/21/18 0900) 0 0 Output (GI Feed/Drain 01/12/18 0100) 30 30 Dialysis 1769 2996 062 4240 Dialysis Output (Ultrafiltration) 1769 4530 803 3833 Shift Total 1874 1049 703 6110 Weight (kg) 94.1 94.1 94.1 94.1 94.1 94.1 94.1 94.1 MEDICATIONS Current Facility-Administered Medications: calcium gluconate 4 g in NaCl 0.9% 250 mL 4 g INTRAVENOUS ONCE Parenteral Nutrition - Adult INTRAVENOUS ONCE TPN (1800 START) senna leaf extract 176 mg/5 mL 528 mg 15 mL OROGASTRIC BID dexmedetomidine 400 mcg in NaCl 0.9% 100 mL (PRECEDEX) 0.2- 0.7 mcg/kg/hr INTRAVENOUS CONTINUOUS carboxymethylcellulose sodium 1-2 Drop (CELLUVISC) 1-2 Drop BOTH EYES PRN polyvinyl alcohol-povidone 1.4-0.6 % 1 Drop (REFRESH) 1 Drop BOTH EYES QID PRN propofol infusion (DIPRIVAN) 0-15 mcg/kg/min (Adjusted) INTRAVENOUS CONTINUOUS hydrocortisone sodium succinate (PF) 50 mg injection (Solu- CORTEF) 50 mg INTRAVENOUS q 8 H heparin 1,000 unit/mL 4,000 Units injection 4,000 Units INTRAVENOUS 3 Times weekly with dialysis heparin 5,000 Units injection 5,000 Units SUBCUTANEOUS q 12 H ampicillin-sulbactam 3 g in NaCl 0.9% 100 mL MB+ (UNASYN) 3 g INTRAVENOUS q 6 H NaCl 0.9% 1,000 mL iv bolus 1,000 mL INTRAVENOUS PRN DIALYSIS prismaSOL BGK 4 K / 2.5 mEq Ca/Liter 5,000 mL 5,000 mL HEMODIALYSIS continuous (no dispense) prismaSOL BGK 4 K / 2.5 mEq Ca/Liter 5,000 mL 5,000 mL HEMODIALYSIS continuous (no dispense) prismaSOL BGK 4 K / 2.5 mEq Ca/Liter 5,000 mL 5,000 mL HEMODIALYSIS continuous (no dispense) dextrose 40 % 15 g 15 g ORAL PRN Or glucagon 1 mg injection (GLUCAGEN) 1 mg INTRAMUSCULAR PRN Or dextrose 50% in water 25 mL syringe 12.5 g INTRAVENOUS PRN magnesium sulfate 1 g in D5W 100 mL 1 g INTRAVENOUS PRN magnesium sulfate in water 2 g in sterile water 50 ml 2 g INTRAVENOUS PRN fentaNYL 20 mcg/mL iv infusion in NaCl 0.9% 100 mL 0-100 mcg/hr INTRAVENOUS CONTINUOUS pantoprazole 40 mg injection (PROTONIX) 40 mg INTRAVENOUS DAILY (6 AM) NORepinephrine 16 mg in D5W 250 mL (LEVOPHED) 0-30 mcg/min INTRAVENOUS CONTINUOUS Chlorhexidine Gluconate 0.12 % 15 mL (PERIDEX) 15 mL ORAL q 12 H Labs: Recent Labs 01/22/18 0420 01/21/18 2224 01/21/18 1609 01/21/18 0430 01/20/18 0345 NA 139 -- -- -- 136 -- 135* K 4.8 -- -- -- 4.4 -- 4.5 CHLOR 106 -- -- -- 103 -- 104 CO2 20* -- -- -- 23 -- 21 BUN 49* -- -- -- 42* -- 36* CREAT 1.80* -- -- -- 1.85* -- 1.84* GLUC 232* -- -- -- 209* -- 186* ANION 18* -- -- -- 14 -- 15 CA 7.2* -- -- -- 7.1* -- 6.8* MG 2.9* -- -- -- 2.7* -- 2.6 P 4.4 -- -- -- 4.0 -- 5.2* ALB -- -- -- -- -- -- 1.5* AST -- -- -- -- -- -- 130* ALT -- -- -- -- -- -- 57 ALKPHOS -- -- -- -- -- -- 190* TBILI -- -- -- -- -- -- 6.0* WBC 17.33* -- -- 19.56* 19.46* < > 14.99* HB 8.1* -- -- 8.8* 9.1* < > 9.4* HCT 23.7* -- -- 26.2* 26.7* < > 27.1* PLT 109* -- -- 114* 100* < > 97* PH 7.407 7.405 < > -- 7.424 < > 7.405 PCO2 33.5* 33.0* < > -- 31.9* < > 33.0* PO2 115.9* 141.5* < > -- 89.8 < > 65.4* BE -3.6 -4.0 < > -- -3.3 < > -3.9 < > = values in this interval not displayed. Exam: GENERAL: No distress NEURO: pupils reactive, not following commands, withdrawing and opening eyes to pain HEENT: normocephalic, atraumatic, +scleral icterus LUNGS: Unlabored Breathing on?Ventilator CARDIAC: Regular rate and rhythm as above, Levo @ 5 ABDOMEN: Soft, ND, NT, no PS, Vac intact w SS output EXTREMITIES: MAK, No deformities, +Anasarca, palpable pulses SKIN: Skin color, texture, turgor normal, No rashes or lesions ASSESSMENT AND PLAN: Active Hospital Problems Diagnosis Date Noted - Ruptured abdominal aortic aneurysm (AAA) ([facility]) 01/12/2018 - Obesity, Class I, BMI 30-34.9 01/16/2018 - Encephalopathy 01/13/2018 - DIC (disseminated intravascular coagulation) ([facility]) 01/12/2018 - Hemorrhagic shock ([facility]) 01/12/2018 - Acute respiratory failure ([facility]) 01/12/2018 - Cardiac arrest ([facility]) 01/12/2018 - Hypernatremia 01/12/2018 - Hypokalemia 01/12/2018 - Hypomagnesemia 01/12/2018 - Hypophosphatemia 01/12/2018 - Hyperchloremia 01/12/2018 - AAA (abdominal aortic aneurysm, ruptured) ([facility]) 01/12/2018 Overview Note: Added automatically from request for surgery [id number] 77 year old male with Ruptured AAA s/p Emergent Repair, takeback washout, repair of serosal tears x2, on 01/12, hemorrhagic shock, acute resp failure with pulm edema, TERENCE, SVT, s/p Third Look Laparotomy and?washout on 01/14, fourth look, washout, vac change on 01/16, Partial fascial closure on 01/19 ? - Vent mgmt per MICU - NPO/TPN/TFs --> per nurse family does not want TFs? - Wean Levo and sedation as able - Acute blood loss and dilutional anemia and thrombocytopenia - monitor, transfuse prn - TERENCE -->?CVVHD per?Nephro, diurese as tolerates, down ~5kg - CXR bilateral improvement, small left effusion, consolidation improving - Unasyn empirically per MICU - Hypocalcemia?- replacing - cont scrotal support - Cont WV - Hyperbilirubinemia - likely transfusion related, consider RUQ US if fevers develop and LFTs/jaundice ?worsen - Solucortef 50mg q8h per MICU - Leukocytosis - reactive and steroid related, afebrile, monitor ?? Assessment and plan discussed with attending: Dr. De Anda SIGNATURE: Dionicio Stevens MD PATIENT NAME: Naveen Akins DATE: January 22, 2018 TIME: 6:28 AM Vascular AND Thoracic Surgery Service Pager: For questions or concerns Tue-Tue 6a-5p please page [phone]. After 5pm and on Weekends and Holidays, please page [phone] if in ICU or [phone] if on RNF. Vicky Devi MD, MD 01/22/2018 9:38 AM Signed Subjective. Intubated with FIO2 40%. Sedated. On levophed 4 mcg/min On TPN 01/22/18 0600 01/22/18 0645 01/22/18 0700 01/22/18 0800 BP: Pulse: 75 74 76 Resp: 20 19 21 Temp: TempSrc: SpO2: 97% 99% 97% Weight: 89 kg (196 lb 3.4 oz) Height: Intubated. Sedated. Not responsive No JVD Heart - S1 S2 RRR Lungs - b/l air entry. CTA Abdomen - open wound with draining tube LE - + edema, No cyanosis Lab: Recent Labs 01/22/18 0420 01/21/18 1609 01/21/18 0430 01/20/18 1620 01/20/18 0345 WBC 17.33* 19.56* 19.46* 19.70* < > 14.99* RBC 2.77* 3.04* 3.12* 3.11* < > 3.18* HB 8.1* 8.8* 9.1* 9.0* < > 9.4* HCT 23.7* 26.2* 26.7* 27.1* < > 27.1* PLT 109* 114* 100* 94* < > 97* MCV 85.6 86.2 85.6 87.1 < > 85.2 MCH 29.2 28.9 29.2 28.9 < > 29.6 MPV -- 13.5* -- 12.3* -- 12.5* RDW 20.4* 20.1* 19.9* 19.8* < > 19.1* < > = values in this interval not displayed. Recent Labs 01/22/18 0420 01/21/18 0430 01/20/18 0345 01/18/18 1000 01/14/18 1555 GLUC 232* 209* 186* < > -- < > 78 NA 139 136 135* < > -- < > 142 K 4.8 4.4 4.5 < > -- < > 4.5 CHLOR 106 103 104 < > -- < > 111* CO2 20* 23 21 < > -- < > 22 CREAT 1.80* 1.85* 1.84* < > -- < > 2.10* BUN 49* 42* 36* < > -- < > 17 ANION 18* 14 15 < > -- < > 14 CA 7.2* 7.1* 6.8* < > -- < > 6.4* TPROT -- -- 4.9* -- 4.8* -- 3.7* ALB -- -- 1.5* -- 1.7* -- 1.7* TBILI -- -- 6.0* -- 4.3* -- 2.9* ALKPHOS -- -- 190* -- 124* -- 67 AST -- -- 130* -- 65* -- 69* ALT -- -- 57 -- 18 -- 13 < > = values in this interval not displayed. Assessment/ Plan 1. Acute kidney injury on chronic kidney disease stage 3. Baseline SCr is 1.36 mg/dL on 11/14/17. CKD is likely due to nephrosclerosis related to PAD. TERENCE is 2/2 ischemic ATN from shock. Patient is CRRT dependent for fluid and metabolic support Anuric. No recovery of kidney function I will continue the same CVVHDF parameters with net UF 100 cc/hour Electrolytes replacement as needed as per ICU protocol ? 2. Shock. Likely hemorrhagic shock-massive blood loss from ruptured AAA +/- adrenal insufficiency. Continue hydrocortisone. On levophed ? 5. Ruptured AAA. s/p repair 01/12/18 and wound closure on 01/21. Management as per vascular surgery. ? 6. Acute hypoxic respiratory failure. Ventilator dependent. Vent management as per ICU. O>I with CRRT UF. Will d/w Dr. Herman Sutton MD 01/22/2018 11:16 AM Addendum MICU - PROGRESS NOTE SERVICE DATE: 01/22/2018 SERVICE TIME: 11:07 AM Admission Date: 01/12/2018 AGE: [age] year old LOS: 10 days Subjective REASON FOR ICU ADMISSION: Patient critically ill, intubated on mechanical ventilation now on 45% Fio2 and 8 of PEEP after right sided thoracentesis On levophed low dose CRRT resumed and fluid is pulled at rate of 100cc/hr Still encephalopathic and more agitated when weaning off sedation S/p abdominal closure on 01/22/18 Daughter at the bedside ? Objective PROBLEMS: ACTIVE PROBLEM LIST Gallstone Pancreatitis Ruptured Abdominal Aortic Aneurysm (Aaa) (Hcc) Dic (Disseminated Intravascular Coagulation) (Hcc) Hemorrhagic Shock (Hcc) Acute Respiratory Failure (Hcc) Cardiac Arrest (Hcc) Hypernatremia Hypokalemia Hypomagnesemia Hypophosphatemia Hyperchloremia Encephalopathy Aaa (Abdominal Aortic Aneurysm, Ruptured) (Hcc) Obesity, Class I, Bmi 30-34.9 PAST MEDICAL HISTORY Diagnosis Date - DIC (disseminated intravascular coagulation) (HCC) 01/12/2018 PAST SURGICAL HISTORY Procedure Laterality Date - LAP CHOLECYSTECT/CHOLANGIOGRAPHY 05-28-09 - REPAIR UMBILICAL NATAN,5+Y/O,REDUC 05-28-09 Social History Marital status: Spouse name: Shelly Years of education: 11 Number of children: 4 Occupational History 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 BP 132/57 Pulse 76 Temp (Src) 96.8 (Axillary) Resp 21 Ht 5' 8 (1.73m) Wt 196 lb 3.4 oz (89.0kg) SpO2 97% BMI 29.84 kg/(m2). Temp (24hrs), Av.8 ?C (96.5 ?F), Min:34.7 ?C (94.5 ?F), Max:36.5 ?C (97.7 ?F) NET FLUID BALANCE Intake/Output Summary (Last 24 hours) at 01/22/18 1107 Last data filed at 01/22/18 1000 Gross per 24 hour Intake 1587.3 ml Output 2284 ml Net -696.7 ml MEDICATIONS Current Facility-Administered Medications: calcium gluconate 4 g in NaCl 0.9% 250 mL 4 g INTRAVENOUS ONCE Parenteral Nutrition - Adult INTRAVENOUS ONCE TPN (1800 START) senna leaf extract 176 mg/5 mL 528 mg 15 mL OROGASTRIC BID dexmedetomidine 400 mcg in NaCl 0.9% 100 mL (PRECEDEX) 0.2- 0.7 mcg/kg/hr INTRAVENOUS CONTINUOUS carboxymethylcellulose sodium 1-2 Drop (CELLUVISC) 1-2 Drop BOTH EYES PRN polyvinyl alcohol-povidone 1.4-0.6 % 1 Drop (REFRESH) 1 Drop BOTH EYES QID PRN propofol infusion (DIPRIVAN) 0-15 mcg/kg/min (Adjusted) INTRAVENOUS CONTINUOUS hydrocortisone sodium succinate (PF) 50 mg injection (Solu- CORTEF) 50 mg INTRAVENOUS q 8 H heparin 1,000 unit/mL 4,000 Units injection 4,000 Units INTRAVENOUS 3 Times weekly with dialysis heparin 5,000 Units injection 5,000 Units SUBCUTANEOUS q 12 H ampicillin-sulbactam 3 g in NaCl 0.9% 100 mL MB+ (UNASYN) 3 g INTRAVENOUS q 6 H NaCl 0.9% 1,000 mL iv bolus 1,000 mL INTRAVENOUS PRN DIALYSIS prismaSOL BGK 4 K / 2.5 mEq Ca/Liter 5,000 mL 5,000 mL HEMODIALYSIS continuous (no dispense) prismaSOL BGK 4 K / 2.5 mEq Ca/Liter 5,000 mL 5,000 mL HEMODIALYSIS continuous (no dispense) prismaSOL BGK 4 K / 2.5 mEq Ca/Liter 5,000 mL 5,000 mL HEMODIALYSIS continuous (no dispense) dextrose 40 % 15 g 15 g ORAL PRN Or glucagon 1 mg injection (GLUCAGEN) 1 mg INTRAMUSCULAR PRN Or dextrose 50% in water 25 mL syringe 12.5 g INTRAVENOUS PRN magnesium sulfate 1 g in D5W 100 mL 1 g INTRAVENOUS PRN magnesium sulfate in water 2 g in sterile water 50 ml 2 g INTRAVENOUS PRN fentaNYL 20 mcg/mL iv infusion in NaCl 0.9% 100 mL 0-100 mcg/hr INTRAVENOUS CONTINUOUS pantoprazole 40 mg injection (PROTONIX) 40 mg INTRAVENOUS DAILY (6 AM) NORepinephrine 16 mg in D5W 250 mL (LEVOPHED) 0-30 mcg/min INTRAVENOUS CONTINUOUS Chlorhexidine Gluconate 0.12 % 15 mL (PERIDEX) 15 mL ORAL q 12 H Lines, Drains, and Airways Line Dialysis / Apheresis Double Lumen 01/13/18 1136 Left Neck 8 days Arterial Line 01/19/18 0840 Arterial Line Right Radial 3 days Central Line Quadruple Lumen 01/19/18 1056 Right Neck 3 days Drain GI Feed/Drain 01/12/18 0100 10 days Drain/Tube 01/19/18 1015 Midline Abdomen 3 days Airway Airway Endotracheal Tube 01/12/18 1138 9 days PHYSICAL EXAM PERFORMED: General: heavily sedated intubated Cardiovascular:?Regular rhythm Respiratory:?tachypnea better on 45% and 8 PEEP Abdomen: Soft, wound vac Extremities:?Edema-?No??? Neurologic:?sedated Respiratory/Nursing Documentation: O2 Therapy: Ventilator (01/22/18942) Invasive Ventilator Mode: Pressure Regulated Volume Control (01/22/18942) Set Ventilator Respiratory Rate (BPM): 20 (01/22/18942) Total Respiratory Rate (BPM): 21 (01/22/18942) Tidal Volume Set (mL): 480 (01/22/18942) Exhaled Tidal Volume (mL): 729 (01/22/18942) Minute Volume (L): 18.2 (01/22/18942) Peak Inspiratory Pressure (cm H2O): 10 (01/22/18942) PEEP/CPAP (cm H2O): 8 (01/22/18942) HEMODYNAMIC DATA: Reviewed NUTRITION: Enteral Feeds: No TPN DATA: Diagnostic tests reviewed for today's visit, films/specimens were personally reviewed by me: Most recent labs and imaging results. LABS: Recent Labs 01/22/18 0420 01/20/18 0345 WBC 17.33* < > 14.99* RBC 2.77* < > 3.18* HB 8.1* < > 9.4* HCT 23.7* < > 27.1* MCV 85.6 < > 85.2 PLT 109* < > 97* GLUC 232* < > 186* BUN 49* < > 36* CREAT 1.80* < > 1.84* NA 139 < > 135* K 4.8 < > 4.5 CHLOR 106 < > 104 CO2 20* < > 21 TPROT -- -- 4.9* ALB -- -- 1.5* CA 7.2* < > 6.8* ALKPHOS -- -- 190* TBILI -- -- 6.0* AST -- -- 130* ALT -- -- 57 MG 2.9* < > 2.6 < > = values in this interval not displayed. ABG: Recent Labs 01/22/18 0420 01/21/18 2224 01/21/18 1610 PH 7.407 7.405 7.392 PO2 115.9* 141.5* 76.1* PCO2 33.5* 33.0* 31.7* CXR with left pleural effusion and LLL atelectasis Assessment/Plan Acute Hypoxic Respiratory Failure on mechanical ventilation Volume overload Large bilateral effusion s/p right side thoracentesis with improved oxygenation after Ruptured AAA s/p surgical repair s/p Cardiac Arrest Encephalopathy??? TERENCE on CKD?-ATN - On CRRT Sinus Tachycardia Thrombocytopenia SVT - Resolved MMP ? PLANS: ? S/p abdominal wound closure Continue?mechanical ventilation, no SBT Wean off oxygen as tolerated CRRT to help removing fluid, goal 100cc/hr spoke with Dr Devi Levophmarixa Fentanyl ?Drip for pain Wean off propofol RAMIN 0-2 HD better with hydrocortisone ABx to completed by tomorrow for possible aspiration PNA EEG impressive for severe encephalopathy, no evidence of epileptiform activity/seizures AAA management/post-operative care per vascular surgery Continue w/ amiodarone gtt, monitor rhythm. ?No further runs of SVT Cardiology consulted, appreciate recs Continue TPN SCDs/PPI/ Heparin SQ per primary team Discussed with daughter at the bedside in length, she understands his severe illness Overall prognosis is poor, patient with multiorgan failure, TERENCE on CRRT and encephalopathic and difficult wean off sedation, Goals of care are discussed primarly with Dr Paniagua? ? Palliative care/trach next week ? Critical Care Documentation:?The patient has the following organ/system impairment(s): ?Circulatory shock, Complex life-threatening ?medical problem(s) and Respiratory failure (Acute, with Hypoxemia) ? ? This patient has a high probability of sudden, clinically significant deterioration, which requires the highest level of physician preparedness to intervene urgently. ?I managed/supervised life or organ supporting interventions that required frequent physician assessment. ?I devoted my full attention to the direct care of this patient for the amount of time indicated below. ?Time I spent with family or surrogate(s) is included only if the patient was incapable of providing the necessary information or participating in medical decision making. ?Time devoted to teaching is not included. ? Critical Care Time devoted to this patient is ?32?minutes SIGNATURE: Herman Sutton MD PATIENT NAME: Naveen Akins DATE: January 22, 2018 TIME: 11:07 AM Previous Version Costa Miguel MD, [facility], [facility] 01/22/2018 4:17 PM Signed Wound without issue. Further care per primary service. Costa Miguel MD, [facility], [facility] Chaplain Will Chaplain 01/23/2018 5:39 AM Signed SPIRITUALCARE Spiritual Care Visit- Brief Note Name: Naveen Akins Date: January 23, 2018 Notes: Patient's family in 3rd floor waiting room and requested prayer. Patient's mother, sisters and son. Follow up needed. Envelope Stamping Machine Operator Signature: Chaplain Suman To contact the Spiritual Care Department: Please call [phone] or Page the On-Call Envelope Stamping Machine Operator at pager [phone] Thank you for the opportunity to be of service. This is an electronically created document. IF PRINTED, PLEASE DO NOT REMOVE FROM THE CHART OR MODIFY PRINTED COPY. Dionicio Stevens MD 01/23/2018 12:26 PM Attested Attestation signed by Venkat Paniagua at 01/23/2018 6:45 PM I saw and evaluated the patient. Discussed with the resident and agree with resident's findings and plan as documented in the resident's note. I spent some time discussing with the family the fact that the patient may come to tracheostomy and PEG tube later this week. In addition we talked about the fact that he may need a dialysis catheter placed in his groin to allow for healing of the neck and potential use of this for a tunneled dialysis catheter down the line. The fact that the patient is requiring significant degrees of sedation while on the ventilator definitely establishes the fact that he is reacting to painful stimuli and to the ventilator situation. With this being the case I feel that potentially we may only really figure out what his potential for neurologic outcome is if we can get him with a tracheostomy and PEG tube and turned down the sedation and pain medication dramatically. I will await further discussion with the neurology service as to what their concept is as to his potential for neurologic recovery. Vascular Surgery Progress Note SERVICE DATE: 01/23/2018 Vascular AND Thoracic Surgery Service Pager: For questions or concerns Mon-Tue 6a-5p please page [phone]. After 5pm and on Weekends and Holidays, please page [phone] if in ICU or [phone] if on RNF. Subjective SUBJECTIVE: NAEON, mildly hypotensive requiring small amount of Levo again overnight When sedation is lowered patient becomes agitated and bites down on ETT and pressures rise on CVVHD Diet: DIET TUBE FEED - CONTIN (NO TRAY) Parenteral Nutrition - Adult Objective OBJECTIVE: Vitals: Temp (24hrs), Av.6 ?C (97.9 ?F), Min:35.7 ?C (96.3 ?F), Max:37.2 ?C (99 ?F) BP 132/57 Pulse 79 Temp 36.8 ?C (98.2 ?F) (Axillary) Resp 19 Ht 172.7 cm (5' 8) Wt 86.2 kg (190 lb 0.6 oz) SpO2 97% BMI 28.89 kg/m? O2 Therapy: Ventilator IANDO: Date 01/22/18 07 - 01/23/18 0659 01/23/18 07 - 01/24/18 0659 Shift 3012-3378 7600-7122 6281-7115 24 Hour Total 5932-2549 1580-1878 0907-3409 24 Hour Total I N T A K E IV 581 224 805 NS 0.9% 30 53 83 Calcium IVPB 250 250 Fentanyl Volume 33 14 47 Dexmedetomidine IV 110 47 157 NORepinephrine Volume 21 8 29 Propofol IV 37 2 39 Ampicillin/Sulbactam (Unasyn) IV 100 100 200 TPN/PPN 503 324 827 TPN 503 324 827 Shift Total 0768 044 8759 O U T P U T Drains 10 10 Negative Pressure: Output (mL) (Negative Pressure Wound Therapy 01/12/18 0749 Abdomen) 10 10 Dialysis 1452 8063 656 0247 Dialysis Output (Ultrafiltration) 1452 1082 142 7334 Shift Total 1452 3526 834 4831 Weight (kg) 89 89 86.2 86.2 86.2 86.2 86.2 86.2 MEDICATIONS Current Facility-Administered Medications: Parenteral Nutrition - Adult INTRAVENOUS ONCE TPN (1800 START) senna leaf extract 176 mg/5 mL 528 mg 15 mL OROGASTRIC BID dexmedetomidine 400 mcg in NaCl 0.9% 100 mL (PRECEDEX) 0.2- 0.7 mcg/kg/hr INTRAVENOUS CONTINUOUS carboxymethylcellulose sodium 1-2 Drop (CELLUVISC) 1-2 Drop BOTH EYES PRN polyvinyl alcohol-povidone 1.4-0.6 % 1 Drop (REFRESH) 1 Drop BOTH EYES QID PRN propofol infusion (DIPRIVAN) 0-15 mcg/kg/min (Adjusted) INTRAVENOUS CONTINUOUS hydrocortisone sodium succinate (PF) 50 mg injection (Solu- CORTEF) 50 mg INTRAVENOUS q 8 H heparin 1,000 unit/mL 4,000 Units injection 4,000 Units INTRAVENOUS 3 Times weekly with dialysis heparin 5,000 Units injection 5,000 Units SUBCUTANEOUS q 12 H ampicillin-sulbactam 3 g in NaCl 0.9% 100 mL MB+ (UNASYN) 3 g INTRAVENOUS q 6 H NaCl 0.9% 1,000 mL iv bolus 1,000 mL INTRAVENOUS PRN DIALYSIS prismaSOL BGK 4 K / 2.5 mEq Ca/Liter 5,000 mL 5,000 mL HEMODIALYSIS continuous (no dispense) prismaSOL BGK 4 K / 2.5 mEq Ca/Liter 5,000 mL 5,000 mL HEMODIALYSIS continuous (no dispense) prismaSOL BGK 4 K / 2.5 mEq Ca/Liter 5,000 mL 5,000 mL HEMODIALYSIS continuous (no dispense) dextrose 40 % 15 g 15 g ORAL PRN Or glucagon 1 mg injection (GLUCAGEN) 1 mg INTRAMUSCULAR PRN Or dextrose 50% in water 25 mL syringe 12.5 g INTRAVENOUS PRN magnesium sulfate 1 g in D5W 100 mL 1 g INTRAVENOUS PRN magnesium sulfate in water 2 g in sterile water 50 ml 2 g INTRAVENOUS PRN fentaNYL 20 mcg/mL iv infusion in NaCl 0.9% 100 mL 0-100 mcg/hr INTRAVENOUS CONTINUOUS pantoprazole 40 mg injection (PROTONIX) 40 mg INTRAVENOUS DAILY (6 AM) NORepinephrine 16 mg in D5W 250 mL (LEVOPHED) 0-30 mcg/min INTRAVENOUS CONTINUOUS Chlorhexidine Gluconate 0.12 % 15 mL (PERIDEX) 15 mL ORAL q 12 H Labs: Recent Labs 01/23/18 0435 01/22/18 2235 01/22/18 1800 01/22/18 0420 NA 139 -- 139 -- 139 K 5.0 -- 4.9 -- 4.8 CHLOR 106 -- 105 -- 106 CO2 22 -- 21 -- 20* BUN 54* -- 53* -- 49* CREAT 1.75* -- 1.78* -- 1.80* GLUC 234* -- 216* -- 232* ANION 16 -- -- -- 18* CA 7.4* -- 7.6* -- 7.2* MG 2.8* -- 2.8* < > 2.9* P 4.7 -- 4.4 -- 4.4 ALB 1.4* -- 1.5* -- -- AST 127* -- -- -- -- ALT 87* -- -- -- -- ALKPHOS 344* -- -- -- -- TBILI 7.2* -- -- -- -- WBC 15.80* -- 19.08* -- 17.33* HB 8.0* -- 8.8* -- 8.1* HCT 24.0* -- 26.1* -- 23.7* PLT 130* -- 135* -- 109* PH 7.399 7.437 7.418 < > 7.407 PCO2 35.3* 31.4* 32.4* < > 33.5* PO2 204.9* 144.4* 101.4* < > 115.9* BE -3.1 -3.0 -3.4 < > -3.6 < > = values in this interval not displayed. Exam: GENERAL: No distress NEURO: Sedated, not following commands HEENT: normocephalic, atraumatic, pupils reactive, +icterus LUNGS: Unlabored breathing O2 Therapy: Ventilator CARDIAC: Regular rate and rhythm as above, hypotensive requiring Levo @ 6 ABDOMEN: Soft, non-tender, non-distended, VAC and retention sutures intact EXTREMITIES: MAK, No deformities, + edema, palpable pulses SKIN: Skin texture, turgor normal, No rashes or lesions, +jaundice ASSESSMENT AND PLAN: Active Hospital Problems Diagnosis Date Noted - Ruptured abdominal aortic aneurysm (AAA) ([facility]) 01/12/2018 - Obesity, Class I, BMI 30-34.9 01/16/2018 - Encephalopathy 01/13/2018 - DIC (disseminated intravascular coagulation) ([facility]) 01/12/2018 - Hemorrhagic shock ([facility]) 01/12/2018 - Acute respiratory failure ([facility]) 01/12/2018 - Cardiac arrest ([facility]) 01/12/2018 - Hypernatremia 01/12/2018 - Hypokalemia 01/12/2018 - Hypomagnesemia 01/12/2018 - Hypophosphatemia 01/12/2018 - Hyperchloremia 01/12/2018 - AAA (abdominal aortic aneurysm, ruptured) ([facility]) 01/12/2018 Overview Note: Added automatically from request for surgery [id number] 77 year old male with Ruptured AAA s/p Emergent Repair, takeback washout, repair of serosal tears x2, on 01/12, hemorrhagic shock, acute resp failure with pulm edema, TERENCE, SVT, s/p Third Look Laparotomy and?washout on 01/14, fourth look, washout, vac change on 01/16, Partial fascial closure on 01/19 ? - Vent mgmt per MICU - NPO/TPN --> we would prefer TFs at this stage, nurse held them this weekend as family unsure if they want him to have TFs - Wean Levo and sedation as able - Acute blood loss and dilutional anemia and thrombocytopenia - monitor, transfuse prn - TERENCE -->?CVVHD per?Nephro, diurese as tolerates - CXR stable and improving bilaterally by my read - Unasyn empirically for possible Asp PNA per MICU - Hypocalcemia?- replacing - cont scrotal support - Cont WV - Hyperbilirubinemia and Transaminitis --> trend LFTs, check Abd US - Solucortef 50mg q8h per MICU - Leukocytosis - reactive and steroid related, afebrile, monitor Overall goals: - now with resp status stabilized and no additional trips to OR planned will continue to wean sedation in order to get accurate Neuro exam, Neuro consulted - discuss goals of care - consider Trach/PEG ?? Assessment and plan discussed with attending: Dr. Paniagua SIGNATURE: Dionicio Stevens MD PATIENT NAME: Naveen Akins DATE: January 23, 2018 TIME: 6:23 AM Vascular AND Thoracic Surgery Service Pager: For questions or concerns Tue-Tue 6a-5p please page [phone]. After 5pm and on Weekends and Holidays, please page [phone] if in ICU or [phone] if on RNF. Previous Version Chaplain Will Chaplain 01/23/2018 8:04 AM Signed SPIRITUALCARE Spiritual Care Visit- Brief Note Name: Naveen Akins Date: January 23, 2018 Notes: Per request of patient's family I prayed for the patient this morning. Envelope Stamping Machine Operator Signature: Chaplain Suman To contact the [facility] Care Department: Please call [phone] or Page the On-Call Envelope Stamping Machine Operator at pager [phone] Thank you for the opportunity to be of service. This is an electronically created document. IF PRINTED, PLEASE DO NOT REMOVE FROM THE CHART OR MODIFY PRINTED COPY. Dorcas Palafox MD 01/23/2018 10:59 AM Signed MICU - PROGRESS NOTE SERVICE DATE: 01/23/2018 SERVICE TIME: 10:38 AM Admission Date: 01/12/2018 AGE: [id number] year old LOS: 11 days Subjective REASON FOR ICU ADMISSION: Renal Failure, Respiratory Failure, Shock, S/P Surgery and right pleural effusion. Remains intubated orally and will weakly open eyes. Sedated with Precedex 0.4 mcg/kg/hr; Propofol 12.7mcg/kg/min; and Fentanyl 100mcg/hr. Now on CVVH. Family at the bedside. Secretions moderately thick yellow- light green. Objective VITAL SIGNS (last 24hrs min/max): Temp Av.8 ?C (98.2 ?F) Min: 36.3 ?C (97.3 ?F) Max: 37.2 ?C (99 ?F) Pulse Av.2 Min: 59 Max: 94 Arterial BP 1 Min: 98/47 Max: 151/66 Cuff No Data Recorded Pain Score: 0/10 Vital signs reviewed. BP 132/57 Pulse 89 Temp (Src) 97.3 (Axillary) Resp 24 Ht 5' 8 (1.73m) Wt 190 lb 0.6 oz (86.2kg) SpO2 99% BMI 28.90 kg/(m2). Temp (24hrs), Av.8 ?C (98.2 ?F), Min:36.3 ?C (97.3 ?F), Max:37.2 ?C (99 ?F) NET FLUID BALANCE Intake/Output Summary (Last 24 hours) at 01/23/18 1038 Last data filed at 01/23/18 1000 Gross per 24 hour Intake 2157.5 ml Output 4088 ml Net -1930.5 ml MEDICATIONS Current Facility-Administered Medications: Parenteral Nutrition - Adult INTRAVENOUS ONCE TPN (1800 START) senna leaf extract 176 mg/5 mL 528 mg 15 mL OROGASTRIC BID dexmedetomidine 400 mcg in NaCl 0.9% 100 mL (PRECEDEX) 0.2- 0.7 mcg/kg/hr INTRAVENOUS CONTINUOUS carboxymethylcellulose sodium 1-2 Drop (CELLUVISC) 1-2 Drop BOTH EYES PRN polyvinyl alcohol-povidone 1.4-0.6 % 1 Drop (REFRESH) 1 Drop BOTH EYES QID PRN propofol infusion (DIPRIVAN) 0-15 mcg/kg/min (Adjusted) INTRAVENOUS CONTINUOUS hydrocortisone sodium succinate (PF) 50 mg injection (Solu- CORTEF) 50 mg INTRAVENOUS q 8 H heparin 1,000 unit/mL 4,000 Units injection 4,000 Units INTRAVENOUS 3 Times weekly with dialysis heparin 5,000 Units injection 5,000 Units SUBCUTANEOUS q 12 H ampicillin-sulbactam 3 g in NaCl 0.9% 100 mL MB+ (UNASYN) 3 g INTRAVENOUS q 6 H NaCl 0.9% 1,000 mL iv bolus 1,000 mL INTRAVENOUS PRN DIALYSIS prismaSOL BGK 4 K / 2.5 mEq Ca/Liter 5,000 mL 5,000 mL HEMODIALYSIS continuous (no dispense) prismaSOL BGK 4 K / 2.5 mEq Ca/Liter 5,000 mL 5,000 mL HEMODIALYSIS continuous (no dispense) prismaSOL BGK 4 K / 2.5 mEq Ca/Liter 5,000 mL 5,000 mL HEMODIALYSIS continuous (no dispense) dextrose 40 % 15 g 15 g ORAL PRN Or glucagon 1 mg injection (GLUCAGEN) 1 mg INTRAMUSCULAR PRN Or dextrose 50% in water 25 mL syringe 12.5 g INTRAVENOUS PRN magnesium sulfate 1 g in D5W 100 mL 1 g INTRAVENOUS PRN magnesium sulfate in water 2 g in sterile water 50 ml 2 g INTRAVENOUS PRN fentaNYL 20 mcg/mL iv infusion in NaCl 0.9% 100 mL 0-100 mcg/hr INTRAVENOUS CONTINUOUS pantoprazole 40 mg injection (PROTONIX) 40 mg INTRAVENOUS DAILY (6 AM) NORepinephrine 16 mg in D5W 250 mL (LEVOPHED) 0-30 mcg/min INTRAVENOUS CONTINUOUS Chlorhexidine Gluconate 0.12 % 15 mL (PERIDEX) 15 mL ORAL q 12 H Lines, Drains, and Airways Line Dialysis / Apheresis Double Lumen 01/13/18 1136 Left Neck 9 days Arterial Line 01/19/18 0840 Arterial Line Right Radial 4 days Central Line Quadruple Lumen 01/19/18 1056 Right Neck 3 days Drain GI Feed/Drain 01/12/18 0100 11 days Drain/Tube 01/19/18 1015 Midline Abdomen 4 days Airway Airway Endotracheal Tube 01/12/18 1138 10 days PHYSICAL EXAM PERFORMED: HEENT: Oral Mucosa: Moist mucous membranes Feeding Tube: Yes. Orogastric tube Eyes: PERRLA Neck: Unremarkable; No adenopathy or JVD Cardiovascular: Regular rhythm Respiratory: Clear to auscultation A/L %FIO2 Min: 45 Max: 50. VENT: PRVC -18 Vt-480ml P-8 FIO2 45% with SaO2 98% PIP 29. Abdomen: Soft, Nontender and Positive bowel sounds Extremities: Edema- Yes and 1+ dependent UE/LE edema at the ankles and feet. Peripheral Pulses- Present all extremities Capillary Refill- less than 3 seconds Skin: Abnormalities- No Neurologic: Sedated and will not move extremities on command. Respiratory/Nursing Documentation: O2 Therapy: Ventilator (01/23/18799) Invasive Ventilator Mode: Pressure Regulated Volume Control (01/23/18730) Set Ventilator Respiratory Rate (BPM): 18 (01/23/18799) Total Respiratory Rate (BPM): 25 (01/23/18730) Tidal Volume Set (mL): 480 (01/23/18799) Exhaled Tidal Volume (mL): 752 (01/23/18730) Minute Volume (L): 20.1 (01/23/18730) Peak Inspiratory Pressure (cm H2O): 15 (01/23/18799) PEEP/CPAP (cm H2O): 8 (01/23/18799) HEMODYNAMIC DATA: NUTRITION: Enteral Feeds: No NPO DATA: Diagnostic tests reviewed for today's visit: Most recent labs and imaging results. LABS: Recent Labs 01/23/18 0435 WBC 15.80* RBC 2.78* HB 8.0* HCT 24.0* MCV 86.3 PLT 130* GLUC 234* BUN 54* CREAT 1.75* NA 139 K 5.0 CHLOR 106 CO2 22 TPROT 5.5* ALB 1.4* CA 7.4* ALKPHOS 344* TBILI 7.2* AST 127* ALT 87* MG 2.8* ABG: Recent Labs 01/23/18 0435 01/22/18 2235 01/22/18 1800 PH 7.399 7.437 7.418 PO2 204.9* 144.4* 101.4* PCO2 35.3* 31.4* 32.4* CULTURES: Other: 01/20: No growth thus far No growth to date right pleural fluid CXR FINDINGS: COMPARISON: 01/22/2018 ? FINDINGS: The ETT, NGT, and bilateral central venous catheters are stable. Since the previous exam, there has been slight improvement in bilateral infiltrates. ? Stable small left pleural effusion. ?Heart is not enlarged. ? IMPRESSION: ? Slight improvement in bilateral infiltrates. Assessment/Plan PROBLEMS: ACTIVE PROBLEM LIST Gallstone Pancreatitis Ruptured Abdominal Aortic Aneurysm (Aaa) (Hcc) Dic (Disseminated Intravascular Coagulation) (Hcc) Hemorrhagic Shock (Hcc) Acute Respiratory Failure (Hcc) Cardiac Arrest (Hcc) Hypernatremia Hypokalemia Hypomagnesemia Hypophosphatemia Hyperchloremia Encephalopathy Aaa (Abdominal Aortic Aneurysm, Ruptured) (Hcc) Obesity, Class I, Bmi 30-34.9 1. Hypoxic VDRF with bilateral infiltrates likely pulmonary edema given improvement in CXR from the weekend. 2. S/P ruptured AAA with multiple open laps due to bleeding and washouts. Original surgery 01/12/18 with multipe transfusions 3. TERENCE on CKD 4. PAFib>>>NSR 5. Mild thrombocytopenia--stable at 130K 6. Moderately severe anemia--8.0 7. Shock--on 3.7mcg/min Levofed PLANS FOR TODAY: CRITICAL CARE PLAN: Bronchodilators , Vasopressors, Ventilatory support , Weaning , Surgery and TPN at 75ml/hr Vent wean as tolerated. ?Try enteral feeds soon?--will discuss with Vascular Surgery Back off on Unasyn to q12h given GFR Remains on stress steroids q8hr No further thoracentesis needed. Titrate Propofol to off if possible. Levophed as needed for MAP>65 This patient has a high probability of sudden, clinically significant deterioration, which requires the highest level of physician preparedness to intervene urgently. I managed/supervised life or organ supporting interventions that required frequent physician assessment. I devoted my full attention to the direct care of this patient for the amount of time indicated below. Time I spent with family or surrogate(s) is included only if the patient was incapable of providing the necessary information or participating in medical decision making. Time devoted to teaching is not included. Critical Care documentation: The patient has the following organ system impairments: Patient Updated Yes Family Updated Yes Discussed with Staff Yes Time spent providing critical care services: 40 minutes excluding procedures. SIGNATURE: Dorcas Palafox MD PATIENT NAME: Naveen Akins DATE: January 23, 2018 TIME: 10:38 AM PAGER/CONTACT #: [phone] Previous Version Viry Mosher RD, LD, RD 01/23/2018 2:12 PM Attested Attestation signed by Perla Dudley at 01/23/2018 11:06 PM Discussed with the RD and agree with RD's findings and plan as documented in the RD's note. Cont TPN; hope to be able to transition to enteral feeds Perla Dudley MD NUTRITION SUPPORT TEAM TOPIC: NUTRITION SUPPORT TEAM PROGRESS NOTE PATIENT NAME: Naveen Akins DATE OF : 1940 DATE: 01/23/2018 Nutritional Status: NO MALNUTRITION IDENTIFIED per RD 01/16/18 ? ? NUTRITION CARE PLAN: ? Problem, Etiology and Signs/Symptoms: Altered GI function related to potential ileus as evidenced by lack of bowel sounds, distended abdomen, and hypotension. ? NST consult 01/16/18 for TPN support Interval History: LOS d 11, tolerating TPN, + gut function, OK'd by ICU to start TF via OG, UOP incomplete, no BM, no pain per NPAT, Assessment: 77 year old male with Ruptured AAA s/p Emergent Repair, takeback washout, repair of serosal tears x2, on 01/12, hemorrhagic shock, acute resp failure with pulm edema, TERENCE, SVT s/p Third Look Laparotomy and?washout on 01/14, fourth look, washout, vac change on 01/16 ?remains on vent, continues on CRRT 01/19 X lap, wash out, partial fascial closure, wound vac change 01/20 pressors weaned off Remains on diprivan gtt 01/20 rt thoracentesis- breathing better 01/21 limited abdominal x lap and closure 01/22 levo at pm restarted Tmax: 37.1 WBC: 15.80 Edema: 3+ UE, LE Lines: Art Line, Quad lumen, HD cath, all WNL Lytes: reviewed PAB: not drawn, last level 11.8 WT: 86.2 kg GFR: 37.89 Recommendations: TPN renewed: Increased NACL, DC KCL, no mg in bag, DC K phos, added TE, vit C, and insulin TPN script: 2.4 L /24 hrs providing 1820 calories ( 21 kcals/kg ABW 86 kg) and 80 gms pro ( ~ 1.0 gms/kg ABW 86 kg) per day CHO:insulin ratio is 14: , with 294 gms CHO in TPN , 20 units in TPN bag Ancillary orders completed D/w Dr Palafox, starting of enteral support, with the hopes of weaning TPN off by 01/24 Impact 1.5 at 50-60 cc/hr is goal, start at 10--> provides 7067-4314 calories and 113-135 pro Diprivan @ 10 mcq per hr--> 240 ml per day, or 264 calories from lipid, check Trig levels Collaborated with Dr Dudley and orders written. Vitals: Temperature Max in 24 hours: Temp (24hrs), Av.8 ?C (98.3 ?F), Min:36.3 ?C (97.3 ?F), Max:37.2 ?C (99 ?F) Current Vital Signs: BP 132/57 Pulse 89 Temp 36.7 ?C (98.1 ?F) Resp 23 Ht 172.7 cm (5' 8) Wt 86.2 kg (190 lb 0.6 oz) SpO2 98% BMI 28.89 kg/m? Current Weight: Weight: 86.2 kg (190 lb 0.6 oz) Intake AND Output: Intake/Output Summary (Last 24 hours) at 01/23/18 1259 Last data filed at 01/23/18 1239 Gross per 24 hour Intake 1994.5 ml Output 4133 ml Net -2138.5 ml Laboratory Data: Recent Labs 01/23/18 0435 01/22/18 1800 01/22/18 1330 01/22/18 0420 NA 139 139 -- 139 K 5.0 4.9 -- 4.8 CHLOR 106 105 -- 106 CO2 22 21 -- 20* CREAT 1.75* 1.78* -- 1.80* BUN 54* 53* -- 49* GLUC 234* 216* -- 232* P 4.7 4.4 -- 4.4 TPROT 5.5* -- -- -- ALB 1.4* 1.5* -- -- MG 2.8* 2.8* 2.8* 2.9* CA 7.4* 7.6* -- 7.2* Viry Mosher, RD, LD Pager: [phone] Increments: 3 Previous Version Lorrie Bo RN, RN 01/23/2018 1:13 PM Signed CARE MANAGEMENT PROGRESS NOTE SERVICE DATE: 01/23/2018 SERVICE TIME: 1:00 PM LOS: 11 days Needs Prior to Discharge: To Be Determined Continue to follow. Remains intubated and sedated. RN is jann Wyatt Currently in NSR. S/p Ruptured AAA s/p Emergent Repair, takeback washout, repair of serosal tears x2, on 01/12, hemorrhagic shock, acute resp failure with pulm edema, TERENCE, SVT, s/p Third Look Laparotomy and?washout on 01/14, fourth look, washout, vac change on 01/16, Partial fascial closure on 01/19. WIll follow neuro consult. No family at bedside currently will follow and assist with transitional needs. SIGNATURE: Lorrie Bo RN PATIENT NAME: Naveen Akins DATE: January 23, 2018 TIME: 1:00 PM PAGER/CONTACT #: [phone] Rosanna Talbert MD 01/23/2018 3:24 PM Signed Nephrology Progress Note Following for TERENCE. Pt is intubated/sedated. Cannot obtain ROS. Current Inpatient Medications: Current Facility-Administered Medications Ordered in Epic: Parenteral Nutrition - Adult INTRAVENOUS ONCE TPN (1800 START) H Edwin Awender Parenteral Nutrition - Adult INTRAVENOUS ONCE TPN (1800 START) H Edwin Awashley Last Rate: 75 mL/hr at 01/22/18 1800 senna leaf extract 176 mg/5 mL 528 mg 15 mL OROGASTRIC BID Dionicio (Res) Stevens 528 mg at 01/23/18 0923 dexmedetomidine 400 mcg in NaCl 0.9% 100 mL (PRECEDEX) 0.2- 0.7 mcg/kg/hr INTRAVENOUS CONTINUOUS Paulo (Meter Repair Shop Supervisor) Hudock Last Rate: 9.67 mL/hr at 01/23/18 0604 0.4 mcg/kg/hr at 01/23/18 0604 carboxymethylcellulose sodium 1-2 Drop (CELLUVISC) 1-2 Drop BOTH EYES PRN Venkat Paniagua 2 Drop at 01/22/18 2049 polyvinyl alcohol-povidone 1.4-0.6 % 1 Drop (REFRESH) 1 Drop BOTH EYES QID PRN Paulo (Meter Repair Shop Supervisor) Hudock 1 Drop at 01/21/18 1641 propofol infusion (DIPRIVAN) 0-15 mcg/kg/min (Adjusted) INTRAVENOUS CONTINUOUS Dionicio (Res) Stevens Last Rate: 5.95 mL/hr at 01/23/18 1100 12 mcg/kg/min at 01/23/18 1100 hydrocortisone sodium succinate (PF) 50 mg injection (Solu- CORTEF) 50 mg INTRAVENOUS q 8 H Shen Lorenzo 50 mg at 01/23/18 1327 heparin 1,000 unit/mL 4,000 Units injection 4,000 Units INTRAVENOUS 3 Times weekly with dialysis Troy Godoy 4,000 Units at 01/22/18 204 heparin 5,000 Units injection 5,000 Units SUBCUTANEOUS q 12 H Christopher (Res) Wally 5,000 Units at 01/23/18 0934 ampicillin-sulbactam 3 g in NaCl 0.9% 100 mL MB+ (UNASYN) 3 g INTRAVENOUS q 6 H Dorcas Mike Palafox Last Rate: 200 mL/hr at 01/23/18 1238 3 g at 01/23/18 1238 NaCl 0.9% 1,000 mL iv bolus 1,000 mL INTRAVENOUS PRN DIALYSIS Shen Lorenzo prismaSOL BGK 4 K / 2.5 mEq Ca/Liter 5,000 mL 5,000 mL HEMODIALYSIS continuous (no dispense) Shen Lorenzo Last Rate: 700 mL/hr at 01/16/18 1300 5,000 mL at 01/23/18 0604 prismaSOL BGK 4 K / 2.5 mEq Ca/Liter 5,000 mL 5,000 mL HEMODIALYSIS continuous (no dispense) Shen Lorenzo Last Rate: 700 mL/hr at 01/16/18 1300 5,000 mL at 01/23/18 0604 prismaSOL BGK 4 K / 2.5 mEq Ca/Liter 5,000 mL 5,000 mL HEMODIALYSIS continuous (no dispense) Shen Lorenzo Last Rate: 700 mL/hr at 01/16/18 1300 5,000 mL at 01/23/18 0604 dextrose 40 % 15 g 15 g ORAL PRN Jack Regula Or glucagon 1 mg injection (GLUCAGEN) 1 mg INTRAMUSCULAR PRN Jack Regula Or dextrose 50% in water 25 mL syringe 12.5 g INTRAVENOUS PRN Jack Regula magnesium sulfate 1 g in D5W 100 mL 1 g INTRAVENOUS PRN Emilie (Res) Cardella Last Rate: 100 mL/hr at 01/15/18 0016 1 g at 01/15/18 0016 magnesium sulfate in water 2 g in sterile water 50 ml 2 g INTRAVENOUS PRN Emilie (Res) Cardella Last Rate: 25 mL/hr at 01/13/18 1004 2 g at 01/13/18 1004 fentaNYL 20 mcg/mL iv infusion in NaCl 0.9% 100 mL 0-100 mcg/hr INTRAVENOUS CONTINUOUS Smooth C Winston Last Rate: 5 mL/hr at 01/22/18 2154 100 mcg/hr at 01/22/18 215 pantoprazole 40 mg injection (PROTONIX) 40 mg INTRAVENOUS DAILY (6 AM) Emilie (Res) Cardella 40 mg at 01/23/18 0557 NORepinephrine 16 mg in D5W 250 mL (LEVOPHED) 0-30 mcg/min INTRAVENOUS CONTINUOUS Dionicio (Res) Stevens Stopped at 01/23/18 1440 Chlorhexidine Gluconate 0.12 % 15 mL (PERIDEX) 15 mL ORAL q 12 H Elder Yu) Kalee 15 mL at 01/23/18 0921 No current [facility]-ordered outpatient prescriptions on file. Vitals: BP 132/57 Pulse 91 Temp 37 ?C (98.6 ?F) Resp 25 Ht 172.7 cm (5' 8) Wt 86.2 kg (190 lb 0.6 oz) SpO2 99% BMI 28.89 kg/m? BLOOD PRESSURE RANGE: No data recorded. ; No data recorded. 24HR INTAKE/OUTPUT: Intake/Output Summary (Last 24 hours) at 01/23/18 1520 Last data filed at 01/23/18 1400 Gross per 24 hour Intake 1831.5 ml Output 3643 ml Net -1811.5 ml Physical exam: Constitutional: Sedated Skin: no rash, turgor wnl Heent: intubated Neck: no bruits or jvd noted Cardiovascular: S1, S2 normal without m/r/g Respiratory: Coarse breath sound bilaterally Abdomen: soft, nt, nd Ext: 3+ lower extremity edema/anasarca Data: Labs: Recent Labs 01/23/18 0435 01/22/18 1800 01/22/18 0420 WBC 15.80* 19.08* 17.33* HB 8.0* 8.8* 8.1* HCT 24.0* 26.1* 23.7* MCV 86.3 85.0 85.6 PLT 130* 135* 109* Recent Labs 01/23/18 0435 01/22/18 1800 01/22/18 1330 01/22/18 0420 NA 139 139 -- 139 K 5.0 4.9 -- 4.8 CO2 22 21 -- 20* MG 2.8* 2.8* 2.8* 2.9* BUN 54* 53* -- 49* CREAT 1.75* 1.78* -- 1.80* CA 7.4* 7.6* -- 7.2* Assessment and Plan 1. Acute kidney injury on chronic kidney disease stage 3. Baseline SCr is 1.36 mg/dL on 11/14/17. CKD is likely due to nephrosclerosis related to PAD. TERENCE is 2/2 ischemic ATN from shock. Pt remains anuric. Currently off pressor. Continue CVVHDF-effluent dose is only 25 mL/kg/hr, so I will increase blood flow rate. If there is issue with blood flow, I will consider changing vascular access for dialysis. Continue UF rate at 50 mL/hr since BP is stable (currently of NE gtt). ? 2. Shock. Initially due to hemorrhagic shock-massive blood loss from ruptured AAA +/- adrenal insufficiency. Currently off pressor. Continue hydrocortisone. ? 5. Ruptured AAA. s/p repair 01/12/18. Management as per vascular surgery. ? 6. Acute hypoxic respiratory failure. Ventilator dependent. Vent management as per ICU. O>I with CRRT UF. See above. Please do not hesitate to contact me at [phone] if there is any question or concern. Rosanna Talbert MD (Shen Lorenzo) Yamel Young, RN, RN 01/23/2018 6:52 PM Signed Patient restarted on CRRT. Unfortunately hemodialysis catheter function is poor. Pre Blood pump flow, Dialysate flow and replacement flows increased to help to compensate. Dr Lorenzo to place femoral line tomorrow to allow IJ's to heal to prepare for tunnelled line soon. Tolerating fluid removal of 50 ml/ hr at this time. Noel Garcia MD, MD 01/25/2018 3:07 PM Cosign Needed INITIAL CONSULT - GENERAL NEUROLOGY SERVICE DATE: 01/23/2018 Team Requesting Consult: Vascular Surgery Current Attending Provider: Venkat Paniagua Neurology was asked to evaluate Naveen Akins, a 77 year old male. Our recommendations of care will be communicated by shared medical record. Subjective HPI: Naveen Akins is a 77 year old male transferred in critical condition from [facility] with diagnosed ruptured AAA. Patient was life-flighted to [facility], intubated at outside facility. Per transport, patient went into cardiac arrest immediately prior to arrival and CPR was initiated. 4 U prbc given prior to arrival. Patient was taken emergently to OR on arrival. CPR was continued en route. Hospital course: Patient's ruptured AAA was repaired and has received countless blood product transfusions. He remains intubated, sedated and requiring new TPN and CRRT. Pt was on EEG for 5 days showing severe diffuse encephalopathy. No epileptiform discharges or EEG seizures were recorded. Current hospital medications: Parenteral Nutrition - Adult INTRAVENOUS ONCE TPN (1800 START) senna leaf extract 176 mg/5 mL 528 mg 15 mL OROGASTRIC BID dexmedetomidine 400 mcg in NaCl 0.9% 100 mL (PRECEDEX) 0.2- 0.7 mcg/kg/hr INTRAVENOUS CONTINUOUS carboxymethylcellulose sodium 1-2 Drop (CELLUVISC) 1-2 Drop BOTH EYES PRN polyvinyl alcohol-povidone 1.4-0.6 % 1 Drop (REFRESH) 1 Drop BOTH EYES QID PRN propofol infusion (DIPRIVAN) 0-15 mcg/kg/min (Adjusted) INTRAVENOUS CONTINUOUS hydrocortisone sodium succinate (PF) 50 mg injection (Solu- CORTEF) 50 mg INTRAVENOUS q 8 H heparin 1,000 unit/mL 4,000 Units injection 4,000 Units INTRAVENOUS 3 Times weekly with dialysis heparin 5,000 Units injection 5,000 Units SUBCUTANEOUS q 12 H ampicillin-sulbactam 3 g in NaCl 0.9% 100 mL MB+ (UNASYN) 3 g INTRAVENOUS q 6 H NaCl 0.9% 1,000 mL iv bolus 1,000 mL INTRAVENOUS PRN DIALYSIS prismaSOL BGK 4 K / 2.5 mEq Ca/Liter 5,000 mL 5,000 mL HEMODIALYSIS continuous (no dispense) prismaSOL BGK 4 K / 2.5 mEq Ca/Liter 5,000 mL 5,000 mL HEMODIALYSIS continuous (no dispense) prismaSOL BGK 4 K / 2.5 mEq Ca/Liter 5,000 mL 5,000 mL HEMODIALYSIS continuous (no dispense) dextrose 40 % 15 g 15 g ORAL PRN glucagon 1 mg injection (GLUCAGEN) 1 mg INTRAMUSCULAR PRN dextrose 50% in water 25 mL syringe 12.5 g INTRAVENOUS PRN magnesium sulfate 1 g in D5W 100 mL 1 g INTRAVENOUS PRN magnesium sulfate in water 2 g in sterile water 50 ml 2 g INTRAVENOUS PRN fentaNYL 20 mcg/mL iv infusion in NaCl 0.9% 100 mL 0-100 mcg/hr INTRAVENOUS CONTINUOUS pantoprazole 40 mg injection (PROTONIX) 40 mg INTRAVENOUS DAILY (6 AM) NORepinephrine 16 mg in D5W 250 mL (LEVOPHED) 0-30 mcg/min INTRAVENOUS CONTINUOUS Chlorhexidine Gluconate 0.12 % 15 mL (PERIDEX) 15 mL ORAL q 12 H PAST MEDICAL HISTORY Diagnosis Date - DIC (disseminated intravascular coagulation) (HCC) 01/12/2018 PAST SURGICAL HISTORY Procedure Laterality Date - LAP CHOLECYSTECT/CHOLANGIOGRAPHY 05-28-09 - REPAIR UMBILICAL NATAN,5+Y/O,REDUC 05-28-09 Social History Marital status: Spouse name: Shelly Years of education: 11 Number of children: 4 Occupational History 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 Abdomen: Wound vac overlying midline surgical incision Extremities: Edema Musculoskeletal: moving upper extremities Peripheral Pulses: Normal Neurological: ? Mental Status: Unable to arouse, does not follow commands or tracks Cranial Nerves: CNIII, IV, : Pupils equal, round and reactive to light CN IX: Gag Reflex Intact CN X: Cough intact LABS/DATA: WBC (thou/cmm) Date Value 01/23/2018 15.41 01/23/2018 15.80 01/22/2018 19.08 01/22/2018 17.33 01/21/2018 19.56 RBC (mil/cmm) Date Value 01/23/2018 2.87 01/23/2018 2.78 01/22/2018 3.07 01/22/2018 2.77 01/21/2018 3.04 Platelet Count (thou/cmm) Date Value 01/23/2018 152 01/23/2018 130 01/22/2018 135 01/22/2018 109 01/21/2018 114 BUN (mg/dL) Date Value 01/23/2018 54 01/22/2018 53 01/22/2018 49 01/21/2018 42 01/20/2018 36 Creatinine (mg/dL) Date Value 01/23/2018 1.75 01/22/2018 1.78 01/22/2018 1.80 01/21/2018 1.85 01/20/2018 1.84 No results found for: NEUTP, ABSNEUT, LYMPHP, ABSLYMPH, ABSMONO, EODINP, ABSEOSIN, BASOP, ABSBASO Lab Results Component Value Date PLT 152 01/23/2018 HB 8.2 01/23/2018 HB 15.0 11/14/2017 HCT 25.0 01/23/2018 ALB 1.4 01/23/2018 CA 7.4 01/23/2018 TBILI 7.2 01/23/2018 ALKPHOS 344 01/23/2018 AST 127 01/23/2018 GLUC 234 01/23/2018 BUN 54 01/23/2018 NA 139 01/23/2018 K 5.0 01/23/2018 CHLOR 106 01/23/2018 CO2 22 01/23/2018 ANION 16 01/23/2018 ALT 87 01/23/2018 No results found for: WSR, CRP, IGG No results found for: USCRP No results found for: CHOL No results found for: LDL No results found for: HDL No results found for: TG No results found for: HBA1C DATA: Diagnostic tests reviewed for today's visit: Most recent labs and imaging results. EEG/BEM No seizure Impression/Recommendations This is Naveen Akins, a 77 year old male s/p AAA rupture in multi-system failure - Recommend MRI when patient is stable for MRI - Likely very poor prognosis given multiple system failure SIGNATURE: Noel Garcia MD PATIENT NAME: Naveen Akins DATE: January 23, 2018 TIME: 10:37 PM PAGER/CONTACT #: [phone] Previous Version Venkat Paniagua MD 01/27/2018 9:08 AM Signed [facility] - Operative Report SURGEON: Venkat Paniagua MD PATIENT NAME: NAVEEN AKINS CSN: [id number] DATE OF SURGERY: 01/16/2018 DATE OF : 1940 SEX/AGE: M/77 PATIENT TYPE: I HOSP SVC: LICO LOCATION: [id number] DATE OF SURGERY: 01/16/2018 SURGEON: Venkat Paniagua MD The patient is an inpatient. PREOPERATIVE DIAGNOSIS: Status post ruptured aneurysm with open abdomen. POSTOPERATIVE DIAGNOSIS: Status post ruptured aneurysm with open abdomen. PROCEDURE: Exploratory laparotomy, change of wound vacuum- assisted closure, and abdominal washout. VISUAL ARTS TEACHER: Kannan Felder MD and Lotus Schuler SA. ANESTHESIA: General. HISTORY: This patient is status post ruptured abdominal aortic aneurysm, brought back today to determine if we needed to just change his wound VAC or if he potentially was able to be closed. The patient also was to have exploration to reassess for any evidence of bowel ischemia. PROCEDURE IN DETAIL: With the patient in supine position under adequate general anesthesia, the previously placed wound VAC was removed after he had been prepped and draped into the field. We removed this and then explored the abdominal cavity. The omentum was reflected and the bowel was run. There was no evidence of any problems. We checked the 2 areas that we had some serosal tearing and these appeared to be intact. We did very carefully inspect the retroperitoneum without disturbing the aneurysm sac and retroperitoneum that had been placed down over this. This appeared to be in good condition, and there was no evidence of bleeding here. There was no significant hematoma here. We pulled the sigmoid colon up and looked at it, and the sigmoid colon appeared viable through the rectosigmoid. At this point in time, we allowed the abdominal contents to return to their normal position. The omentum was pulled down and we attempted to bring the midline fascia together. There was a significant amount of tension still, and we still had a significant amount of bowel edema, and as we were pulling on this, the patient went into a supraventricular tachycardia. With this being the case, we felt that the patient probably would not be a good candidate for closure at this time, and therefore a new ABThera device was brought onto the field and appropriately applied, and then connected to suction. Once this was accomplished, we saw that anesthesia had stabilized the patient from his intermittent hemodynamic instability, and he was stable enough to return to the Intensive Care Unit at this time. There were no complications noted. Sponge counts were correct and no lap sponges were left in the abdomen. Note is made that the patient still needs a completion film at the end of closure as no initial instrument count had been done prior to the initial procedure as this was done urgently. The patient tolerated the procedure reasonably well, and was returned to the Cardiovascular Intensive Care Unit in stable, but critical condition. Venkat Paniagua MD Vascular Surgery DJW:modl /[id number] DORIE SCHOFIELD PHARMACIST 01/26/2018 3:33 PM Addendum MEDICATION HISTORY AND MEDICATION RECONCILIATION Patient Name:Tom Akins : 1940 Source of history:Family: Reliability of source: Only knew pharmacy he fills at ([facility] in [place]- called) Medication Nonadherence Identified: Unable to verify at this time The above information represents the best possible medication history: Yes Reconciliation completed? Yes All [facility] medications addressed by LIP Additional comments: Unable to discuss with Shelly (spouse) at this time. Most recent medication picked up was a 7 day course of Augmentin BID on 01/11/18. Allergies: ALLERGIES No Known Allergies Preferred Pharmacy: [facility] ([phone]) Current [facility] [facility] Medications: Prior to Admission medications as of 01/24/18 1710 Medication Sig Last Dose Taking metoprolol succinate(TOPROL XL 50 MG 24 HR TAB) Take one(1) tablet daily. 01/11/2018 Yes ASPIRIN 325 MG TAB Take one(1) tablet daily. 01/11/2018 Yes triamterene/hydrochlorothiazid(DYAZIDE 37.5 MG-25 MG CAP) take one half (1/2) tablet daily 01/11/2018 Yes LIPITOR 10 MG TAB Take one(1) tablet daily. 01/11/2018 Yes KRISTYN RAY January 24, 2018 8:02 AM Previous Version Venkat Paniagua MD 01/24/2018 3:31 PM Addendum Vascular Surgery Progress Note SERVICE DATE: 01/24/2018 Vascular AND Thoracic Surgery Service Pager: For questions or concerns Mon-Fri 6a-5p please page [phone]. After 5pm and on Weekends and Holidays, please page [phone] if in ICU or [phone] if on RNF. Subjective SUBJECTIVE: Levo restarted overnight Diet: Parenteral Nutrition - Adult DIET TUBE FEED - CONTIN (NO TRAY) Objective OBJECTIVE: Vitals: Temp (24hrs), Av.8 ?C (98.2 ?F), Min:35.7 ?C (96.3 ?F), Max:37.5 ?C (99.5 ?F) BP 132/57 Pulse 79 Temp (!) 35.7 ?C (96.3 ?F) (Axillary) Resp 26 Ht 172.7 cm (5' 8) Wt 83.6 kg (184 lb 4.9 oz) SpO2 99% BMI 28.02 kg/m? O2 Therapy: Ventilator IANDO: Date 01/23/18699 - 01/24/1865801/24/18699 - 01/25/18 0659 Shift 0068-0566 5107-6797 4543-7892 24 Hour Total 4433-5022 8499-8812 6118-3458 24 Hour Total I N T A K E PO 14 14 Tube Feed Intake (GI Feed/Drain ) 14 14 IV 311 313.4 335.2 959.6 NS 0.9% 57.5 28.8 77.2 163.5 Fentanyl Volume 77 39.7 116.7 Dexmedetomidine IV 74 59.8 135.5 269.3 NORepinephrine Volume 31.5 4.3 12.2 48 Propofol IV 48 43.5 70.6 162.1 Ampicillin/Sulbactam (Unasyn) IV 100 100 200 TPN/PPN 585.4 488.8 600.6 1674.8 TPN 585.4 488.8 600.6 1674.8 Irrigants 60 60 Irrigant/Flush Amount In (GI Feed/Drain ) 60 60 Shift Total 896.4 802.2 1009.8 2708.4 O U T P U T Urine 100 150 250 Void (ml) 100 150 250 Urine Incontinence/Not Saved 3 x 3 x Tubes 0 150 35 185 0 0 Drain/Tube Output (Drain/Tube 01/19/18 1015 Midline Abdomen) 0 0 10 10 0 0 Output (GI Feed/Drain ) 150 25 175 # of BMs Number of BMs 0 x 0 x 0 x Dialysis 1434 147 631 1799 93 93 Dialysis Output (Ultrafiltration) 1434 060 253 1026 93 93 Shift Total 1434 291 645 8227 93 93 Weight (kg) 86.2 86.2 83.6 83.6 83.6 83.6 83.6 83.6 MEDICATIONS Current Facility-Administered Medications: Parenteral Nutrition - Adult INTRAVENOUS ONCE TPN (1800 START) senna leaf extract 176 mg/5 mL 528 mg 15 mL OROGASTRIC BID dexmedetomidine 400 mcg in NaCl 0.9% 100 mL (PRECEDEX) 0.2- 0.7 mcg/kg/hr INTRAVENOUS CONTINUOUS carboxymethylcellulose sodium 1-2 Drop (CELLUVISC) 1-2 Drop BOTH EYES PRN polyvinyl alcohol-povidone 1.4-0.6 % 1 Drop (REFRESH) 1 Drop BOTH EYES QID PRN propofol infusion (DIPRIVAN) 0-15 mcg/kg/min (Adjusted) INTRAVENOUS CONTINUOUS hydrocortisone sodium succinate (PF) 50 mg injection (Solu- CORTEF) 50 mg INTRAVENOUS q 8 H heparin 1,000 unit/mL 4,000 Units injection 4,000 Units INTRAVENOUS 3 Times weekly with dialysis heparin 5,000 Units injection 5,000 Units SUBCUTANEOUS q 12 H NaCl 0.9% 1,000 mL iv bolus 1,000 mL INTRAVENOUS PRN DIALYSIS prismaSOL BGK 4 K / 2.5 mEq Ca/Liter 5,000 mL 5,000 mL HEMODIALYSIS continuous (no dispense) prismaSOL BGK 4 K / 2.5 mEq Ca/Liter 5,000 mL 5,000 mL HEMODIALYSIS continuous (no dispense) prismaSOL BGK 4 K / 2.5 mEq Ca/Liter 5,000 mL 5,000 mL HEMODIALYSIS continuous (no dispense) dextrose 40 % 15 g 15 g ORAL PRN Or glucagon 1 mg injection (GLUCAGEN) 1 mg INTRAMUSCULAR PRN Or dextrose 50% in water 25 mL syringe 12.5 g INTRAVENOUS PRN magnesium sulfate 1 g in D5W 100 mL 1 g INTRAVENOUS PRN magnesium sulfate in water 2 g in sterile water 50 ml 2 g INTRAVENOUS PRN fentaNYL 20 mcg/mL iv infusion in NaCl 0.9% 100 mL 0-100 mcg/hr INTRAVENOUS CONTINUOUS pantoprazole 40 mg injection (PROTONIX) 40 mg INTRAVENOUS DAILY (6 AM) NORepinephrine 16 mg in D5W 250 mL (LEVOPHED) 0-30 mcg/min INTRAVENOUS CONTINUOUS Chlorhexidine Gluconate 0.12 % 15 mL (PERIDEX) 15 mL ORAL q 12 H Labs: Recent Labs 01/24/18 0420 01/23/18 2235 01/23/18 1655 01/23/18 1020 01/23/18 0435 NA 141 -- -- -- -- 139 K 4.5 -- -- -- -- 5.0 CHLOR 106 -- -- -- -- 106 CO2 23 -- -- -- -- 22 BUN 57* -- -- -- -- 54* CREAT 1.80* -- -- -- -- 1.75* GLUC 189* -- -- -- -- 234* ANION 17* -- -- -- -- 16 CA 7.2* -- -- -- -- 7.4* MG 2.7* -- -- -- -- 2.8* P 3.5 -- -- -- -- 4.7 ALB 1.3* -- -- -- -- 1.4* AST 132* -- -- -- -- 127* ALT 103* -- -- -- -- 87* ALKPHOS 297* -- -- -- -- 344* TBILI 6.3* -- -- -- -- 7.2* WBC 13.44* -- 15.41* -- -- 15.80* HB 7.1* -- 8.2* -- -- 8.0* HCT 21.8* -- 25.0* -- -- 24.0* PLT 141 -- 152 -- -- 130* INR 1.00 -- -- -- 0.93 -- PH 7.418 7.452* 7.428 < > -- 7.399 PCO2 35.1* 31.4* 32.6* < > -- 35.3* PO2 173.6* 132.8* 134.2* < > -- 204.9* BE -2.1 -2.1 -2.8 < > -- -3.1 < > = values in this interval not displayed. Exam: GENERAL: No distress NEURO: Sedated, not following commands HEENT: normocephalic, atraumatic, pupils reactive, +icterus LUNGS: Unlabored breathing O2 Therapy: Ventilator CARDIAC: Regular rate and rhythm as above, hypotensive requiring Levo @ 4 ABDOMEN: Soft, non-tender, non-distended, VAC and retention sutures intact EXTREMITIES: MAK, No deformities, + edema, palpable pulses SKIN: Skin texture, turgor normal, No rashes or lesions, +jaundice ASSESSMENT AND PLAN: Active Hospital Problems Diagnosis Date Noted - Ruptured abdominal aortic aneurysm (AAA) ([facility]) 01/12/2018 - Obesity, Class I, BMI 30-34.9 01/16/2018 - Encephalopathy 01/13/2018 - DIC (disseminated intravascular coagulation) ([facility]) 01/12/2018 - Hemorrhagic shock ([facility]) 01/12/2018 - Acute respiratory failure ([facility]) 01/12/2018 - Cardiac arrest ([facility]) 01/12/2018 - Hypernatremia 01/12/2018 - Hypokalemia 01/12/2018 - Hypomagnesemia 01/12/2018 - Hypophosphatemia 01/12/2018 - Hyperchloremia 01/12/2018 - AAA (abdominal aortic aneurysm, ruptured) ([facility]) 01/12/2018 Overview Note: Added automatically from request for surgery [id number] 77 year old male with Ruptured AAA s/p Emergent Repair, takeback washout, repair of serosal tears x2, on 01/12, hemorrhagic shock, acute resp failure with pulm edema, TERENCE, SVT, s/p Third Look Laparotomy and?washout on 01/14, fourth look, washout, vac change on 01/16, Partial fascial closure on 01/19 ? - Vent mgmt per MICU - Advance TFs to goal as tolerated, wean TPN - Wean Levo and sedation as able - Acute blood loss and dilutional anemia and thrombocytopenia - monitor, transfuse prn --> 2u pRBCs today - TERENCE -->?CVVHD per?Nephro, diurese as tolerates - CXR stable - cont scrotal support - Cont WV --> wound care following for VAC changes - Hyperbilirubinemia and Transaminitis --> trend LFTs, Abd US WNL - Solucortef 50mg q8h per MICU - Leukocytosis - reactive and steroid related, afebrile, monitor - Left Pleural Effusion --> Thoracentesis pending ? Overall goals: - now with resp status stabilized and no additional trips to OR planned will continue to wean sedation in order to get accurate Neuro exam, Neuro consulted - discuss goals of care - Trach/PEG likely this week ?? Assessment and plan discussed with attending: Dr. Paniagua SIGNATURE: Dionicio Stevens MD PATIENT NAME: Naveen Akins DATE: January 24, 2018 TIME: 9:08 AM Vascular AND Thoracic Surgery Service Pager: For questions or concerns Tue-Tue 6a-5p please page [phone]. After 5pm and on Weekends and Holidays, please page [phone] if in ICU or [phone] if on RNF. Patient was seen and evaluated and I had several discussions with consulting services. We opened a consultation with wound care for ongoing care of his wound VAC. I discussed this situation with the wound care nurses. I also discussed the case with Dr. gupta who is going to move his dialysis catheter to the groin hopefully giving us the chance to allow the neck to heal up so that as we progress we could put a tunneled dialysis catheter in the left neck. As we become more hemodynamically stable consideration will be given to placement of a PICC line for access for long-term therapy. Overall the patient seems to be stable his liver functions are stabilizing he is to receive a left pleural effusion thoracentesis. We are still in process of proceeding to a point that his neurologic recovery can be better assessed however I do agree that trach and PEG will need to be done this week if we are to continue therapy and supportive measures. Previous Version Paulo Lovelace APRN.MAINTENANCE TEAM MEMBER 01/24/2018 10:17 AM Signed MICU - PROGRESS NOTE SERVICE DATE: 01/24/2018 SERVICE TIME: 10:02 AM Admission Date: 01/12/2018 AGE: [age] year old LOS: 12 days Subjective REASON FOR ICU ADMISSION: Respiratory Failure Objective PROBLEMS: ACTIVE PROBLEM LIST Gallstone Pancreatitis Ruptured Abdominal Aortic Aneurysm (Aaa) (Hcc) Dic (Disseminated Intravascular Coagulation) (Hcc) Hemorrhagic Shock (Hcc) Acute Respiratory Failure (Hcc) Cardiac Arrest (Hcc) Hypernatremia Hypokalemia Hypomagnesemia Hypophosphatemia Hyperchloremia Encephalopathy Aaa (Abdominal Aortic Aneurysm, Ruptured) (Hcc) Obesity, Class I, Bmi 30-34.9 PAST MEDICAL HISTORY Diagnosis Date - DIC (disseminated intravascular coagulation) (HCC) 01/12/2018 PAST SURGICAL HISTORY Procedure Laterality Date - LAP CHOLECYSTECT/CHOLANGIOGRAPHY 05-28-09 - REPAIR UMBILICAL NATAN,5+Y/O,REDUC 05-28-09 Social History Marital status: Spouse name: Shelly Years of education: 11 Number of children: 4 Occupational History 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 BP 132/57 Pulse 79 Temp (Src) 96.3 (Axillary) Resp 26 Ht 5' 8 (1.73m) Wt 184 lb 4.9 oz (83.6kg) SpO2 99% BMI 28.03 kg/(m2). Temp (24hrs), Av.8 ?C (98.2 ?F), Min:35.7 ?C (96.3 ?F), Max:37.5 ?C (99.5 ?F) NET FLUID BALANCE Intake/Output Summary (Last 24 hours) at 01/24/18 1002 Last data filed at 01/24/18 0900 Gross per 24 hour Intake 2335 ml Output 2761 ml Net -426 ml MEDICATIONS Current Facility-Administered Medications: Parenteral Nutrition - Adult INTRAVENOUS ONCE TPN (1800 START) senna leaf extract 176 mg/5 mL 528 mg 15 mL OROGASTRIC BID dexmedetomidine 400 mcg in NaCl 0.9% 100 mL (PRECEDEX) 0.2- 0.7 mcg/kg/hr INTRAVENOUS CONTINUOUS carboxymethylcellulose sodium 1-2 Drop (CELLUVISC) 1-2 Drop BOTH EYES PRN polyvinyl alcohol-povidone 1.4-0.6 % 1 Drop (REFRESH) 1 Drop BOTH EYES QID PRN propofol infusion (DIPRIVAN) 0-15 mcg/kg/min (Adjusted) INTRAVENOUS CONTINUOUS hydrocortisone sodium succinate (PF) 50 mg injection (Solu- CORTEF) 50 mg INTRAVENOUS q 8 H heparin 1,000 unit/mL 4,000 Units injection 4,000 Units INTRAVENOUS 3 Times weekly with dialysis heparin 5,000 Units injection 5,000 Units SUBCUTANEOUS q 12 H NaCl 0.9% 1,000 mL iv bolus 1,000 mL INTRAVENOUS PRN DIALYSIS prismaSOL BGK 4 K / 2.5 mEq Ca/Liter 5,000 mL 5,000 mL HEMODIALYSIS continuous (no dispense) prismaSOL BGK 4 K / 2.5 mEq Ca/Liter 5,000 mL 5,000 mL HEMODIALYSIS continuous (no dispense) prismaSOL BGK 4 K / 2.5 mEq Ca/Liter 5,000 mL 5,000 mL HEMODIALYSIS continuous (no dispense) dextrose 40 % 15 g 15 g ORAL PRN Or glucagon 1 mg injection (GLUCAGEN) 1 mg INTRAMUSCULAR PRN Or dextrose 50% in water 25 mL syringe 12.5 g INTRAVENOUS PRN magnesium sulfate 1 g in D5W 100 mL 1 g INTRAVENOUS PRN magnesium sulfate in water 2 g in sterile water 50 ml 2 g INTRAVENOUS PRN fentaNYL 20 mcg/mL iv infusion in NaCl 0.9% 100 mL 0-100 mcg/hr INTRAVENOUS CONTINUOUS pantoprazole 40 mg injection (PROTONIX) 40 mg INTRAVENOUS DAILY (6 AM) NORepinephrine 16 mg in D5W 250 mL (LEVOPHED) 0-30 mcg/min INTRAVENOUS CONTINUOUS Chlorhexidine Gluconate 0.12 % 15 mL (PERIDEX) 15 mL ORAL q 12 H Lines, Drains, and Airways Line Dialysis / Apheresis Double Lumen 01/13/18 1136 Left Neck 10 days Arterial Line 01/19/18 0840 Arterial Line Right Radial 5 days Central Line Quadruple Lumen 01/19/18 1056 Right Neck 4 days Drain GI Feed/Drain 01/12/18 0100 12 days Drain/Tube 01/19/18 1015 Midline Abdomen 4 days Airway Airway Endotracheal Tube 01/12/18 1138 11 days PHYSICAL EXAM PERFORMED: Cardiovascular: Regular rhythm Respiratory: Reduced breath sounds bilat %FIO2 Min: 40 Max: 40 Abdomen: Positive bowel sounds Extremities: Edema- Yes Generalized edema Neurologic: Sedated and Unresponsive Respiratory/Nursing Documentation: O2 Therapy: Ventilator (01/24/18818) Invasive Ventilator Mode: Pressure Regulated Volume Control (01/24/18818) Set Ventilator Respiratory Rate (BPM): 18 (01/24/18818) Total Respiratory Rate (BPM): 23 (01/24/18818) Tidal Volume Set (mL): 480 (01/24/18818) Exhaled Tidal Volume (mL): 669 (01/24/18818) Minute Volume (L): 13.5 (01/24/18818) Peak Inspiratory Pressure (cm H2O): 11 (01/24/18818) PEEP/CPAP (cm H2O): 5 (01/24/18818) HEMODYNAMIC DATA: Reviewed NUTRITION: Enteral Feeds: TPN at 75 ml/hr DATA: Diagnostic tests reviewed for today's visit, films/specimens were personally reviewed by me: Most recent labs and imaging results. LABS: Recent Labs 01/24/18 0420 01/23/18 1020 WBC 13.44* < > -- RBC 2.48* < > -- HB 7.1* < > -- HCT 21.8* < > -- MCV 87.9 < > -- PLT 141 < > -- GLUC 189* -- -- BUN 57* -- -- CREAT 1.80* -- -- NA 141 -- -- K 4.5 -- -- CHLOR 106 -- -- CO2 23 -- -- TPROT 5.0* -- -- ALB 1.3* -- -- CA 7.2* -- -- ALKPHOS 297* -- -- TBILI 6.3* -- -- AST 132* -- -- ALT 103* -- -- PTSEC 10.6 -- 10.0 APTT -- -- 23.9 INR 1.00 -- 0.93 MG 2.7* -- -- < > = values in this interval not displayed. ABG: Recent Labs 01/24/18 0420 01/23/18 2235 01/23/18 1655 PH 7.418 7.452* 7.428 PO2 173.6* 132.8* 134.2* PCO2 35.1* 31.4* 32.6* Assessment/Plan IMPRESSION: Critical Care Documentation: The patient has the following organ/system impairment(s): Respiratory failure (with Hypoxemia) ? 1.Acute hypoxic respiratory failure/ARDS/Bilat pleuaral effusions-remains intubated on 40% FIO2 2. Ruptured AAA ?Sp repair-Wound closed vac in place draining sm amt serosanguinous drainage 3.SP cardiac arrest 4.Shock-Levophed support 5. Pt is nonresponsive-even to noxious stimuli-Encephalopathy 6.Thrombocytopenia 7.Nutritional support-TPN 8.Sinus tachycardia-SVT resolved 9.TERENCE on CKD-on CRRT 10. Fentanyl drip at 100mcg/kh for pain control 11. Nephro plans to place femoral dialysis line 12. Acute blood loss anemia-transfuse This patient has a high probability of sudden, clinically significant deterioration, which requires the highest level of physician preparedness to intervene urgently. I managed/supervised life or organ supporting interventions that required frequent physician assessment. I devoted my full attention to the direct care of this patient for the amount of time indicated below. Time I spent with family or surrogate(s) is included only if the patient was incapable of providing the necessary information or participating in medical decision making. Time devoted to teaching is not included. Discussed with staff/patient/family Time spent providing critical care services: 35 minutes excluding procedures. SIGNATURE: Paulo Lovelace APRN.MAINTENANCE TEAM MEMBER PATIENT NAME: Naveen Akins DATE: January 24, 2018 TIME: 10:02 AM Chaplain Serna Chaplain 01/24/2018 10:46 AM Signed [facility] Spiritual Care Visit- Brief Note Name: Naveen Akins Date: January 24, 2018 Notes: Stopped by pt's rm; pt's omid clements w/staff. Silent prayer outside door. Will follow up w/fam/pt later on. Envelope Stamping Machine Operator Signature: Chaplain Daphne To contact the Spiritual Care Department: Please call [phone] or Page the On-Call Envelope Stamping Machine Operator at pager [phone] Thank you for the opportunity to be of service. This is an electronically created document. IF PRINTED, PLEASE DO NOT REMOVE FROM THE CHART OR MODIFY PRINTED COPY. Steve Rivera RN, RN 01/24/2018 10:48 AM Signed CARE MANAGEMENT PROGRESS NOTE SERVICE DATE: 01/24/2018 SERVICE TIME: 1045 LOS: 12 days Needs Prior to Discharge: To Be Determined Pt remains intubated and sedated. Had abdomen closed on 01/22/18, still has wound vac. Plan is for nephrology to place femoral dialysis line today. Will continue to follow for transitional needs. SIGNATURE: Steve Rivera RN PATIENT NAME: Naveen Akins DATE: January 24, 2018 TIME: 10:44 AM PAGER/CONTACT #: [phone] Dorcas Palafox MD 01/24/2018 11:11 AM Signed MICU - PROGRESS NOTE SERVICE DATE: 01/24/2018 SERVICE TIME: 10:47 AM Admission Date: 01/12/2018 AGE: [id number] year old LOS: 12 days Subjective REASON FOR ICU ADMISSION: Confusion and Delirium, Renal Failure, Respiratory Failure, Shock, S/P Surgery and S/P Ruptured AAA Propofol at 15mcg/kg/min. Precedex at 0.7mcg/kg/hr. Levophed currently off. Fentanyl 100mcg/hr. Remains on CVVH. Objective VITAL SIGNS (last 24hrs min/max): Temp Av.8 ?C (98.2 ?F) Min: 35.7 ?C (96.3 ?F) Max: 37.5 ?C (99.5 ?F) Pulse Av.1 Min: 53 Max: 100 Arterial BP 1 Min: 67/32 Max: 178/83 Cuff No Data Recorded Pain Score: 0/10 Vital signs reviewed. BP 132/57 Pulse 79 Temp (Src) 96.3 (Axillary) Resp 26 Ht 5' 8 (1.73m) Wt 184 lb 4.9 oz (83.6kg) SpO2 99% BMI 28.03 kg/(m2). Temp (24hrs), Av.8 ?C (98.2 ?F), Min:35.7 ?C (96.3 ?F), Max:37.5 ?C (99.5 ?F) NET FLUID BALANCE Intake/Output Summary (Last 24 hours) at 01/24/18 1047 Last data filed at 01/24/18 1000 Gross per 24 hour Intake 2335 ml Output 2901 ml Net -566 ml MEDICATIONS Current Facility-Administered Medications: Parenteral Nutrition - Adult INTRAVENOUS ONCE TPN (1800 START) senna leaf extract 176 mg/5 mL 528 mg 15 mL OROGASTRIC BID dexmedetomidine 400 mcg in NaCl 0.9% 100 mL (PRECEDEX) 0.2- 0.7 mcg/kg/hr INTRAVENOUS CONTINUOUS carboxymethylcellulose sodium 1-2 Drop (CELLUVISC) 1-2 Drop BOTH EYES PRN polyvinyl alcohol-povidone 1.4-0.6 % 1 Drop (REFRESH) 1 Drop BOTH EYES QID PRN propofol infusion (DIPRIVAN) 0-15 mcg/kg/min (Adjusted) INTRAVENOUS CONTINUOUS hydrocortisone sodium succinate (PF) 50 mg injection (Solu- CORTEF) 50 mg INTRAVENOUS q 8 H heparin 1,000 unit/mL 4,000 Units injection 4,000 Units INTRAVENOUS 3 Times weekly with dialysis heparin 5,000 Units injection 5,000 Units SUBCUTANEOUS q 12 H NaCl 0.9% 1,000 mL iv bolus 1,000 mL INTRAVENOUS PRN DIALYSIS prismaSOL BGK 4 K / 2.5 mEq Ca/Liter 5,000 mL 5,000 mL HEMODIALYSIS continuous (no dispense) prismaSOL BGK 4 K / 2.5 mEq Ca/Liter 5,000 mL 5,000 mL HEMODIALYSIS continuous (no dispense) prismaSOL BGK 4 K / 2.5 mEq Ca/Liter 5,000 mL 5,000 mL HEMODIALYSIS continuous (no dispense) dextrose 40 % 15 g 15 g ORAL PRN Or glucagon 1 mg injection (GLUCAGEN) 1 mg INTRAMUSCULAR PRN Or dextrose 50% in water 25 mL syringe 12.5 g INTRAVENOUS PRN magnesium sulfate 1 g in D5W 100 mL 1 g INTRAVENOUS PRN magnesium sulfate in water 2 g in sterile water 50 ml 2 g INTRAVENOUS PRN fentaNYL 20 mcg/mL iv infusion in NaCl 0.9% 100 mL 0-100 mcg/hr INTRAVENOUS CONTINUOUS pantoprazole 40 mg injection (PROTONIX) 40 mg INTRAVENOUS DAILY (6 AM) NORepinephrine 16 mg in D5W 250 mL (LEVOPHED) 0-30 mcg/min INTRAVENOUS CONTINUOUS Chlorhexidine Gluconate 0.12 % 15 mL (PERIDEX) 15 mL ORAL q 12 H Lines, Drains, and Airways Line Dialysis / Apheresis Double Lumen 01/13/18 1136 Left Neck 10 days Arterial Line 01/19/18 0840 Arterial Line Right Radial 5 days Central Line Quadruple Lumen 01/19/18 1056 Right Neck 4 days Drain GI Feed/Drain 01/12/18 0100 12 days Drain/Tube 01/19/18 1015 Midline Abdomen 5 days Airway Airway Endotracheal Tube 01/12/18 1138 11 days PHYSICAL EXAM PERFORMED: HEENT: Fair upper and lower dentition. +Orotracheal intubation. Crusted hemorrhagic ulcers on upper lip. Oral Mucosa: Dry mucous membranes and Erythema Feeding Tube: Yes. Orogastric tube Eyes: PERRLA Neck: Unremarkable; No adenopathy or JVD Cardiovascular: Regular rhythm Respiratory: Clear to auscultation but thick secretions reported from ETTube. %FIO2 Min: 40 Max: 40 VENT: PRVC-18 Vt-480 P-5 FiO2 40% SaO2 99% Ve-13-15l/min. Rapid RR at times. Abdomen: Soft, Nontender, Positive bowel sounds and woundVac in place. Reported mucoid stools. Extremities: Edema- Yes and 1+ UE and LE pitting edema. Peripheral Pulses- Present all extremities Capillary Refill- less than 3 seconds Skin: Abnormalities- No Neurologic: Sedated and will briefly open eyes to name Respiratory/Nursing Documentation: O2 Therapy: Ventilator (01/24/18818) Invasive Ventilator Mode: Pressure Regulated Volume Control (01/24/18818) Set Ventilator Respiratory Rate (BPM): 18 (01/24/18818) Total Respiratory Rate (BPM): 23 (01/24/18818) Tidal Volume Set (mL): 480 (01/24/18818) Exhaled Tidal Volume (mL): 669 (01/24/18818) Minute Volume (L): 13.5 (01/24/18818) Peak Inspiratory Pressure (cm H2O): 11 (01/24/18818) PEEP/CPAP (cm H2O): 5 (01/24/18818) HEMODYNAMIC DATA: NUTRITION: Enteral Feeds: No NPO DATA: Diagnostic tests reviewed for today's visit: Most recent labs and imaging results. LABS: Recent Labs 01/24/18 0420 01/23/18 1020 WBC 13.44* < > -- RBC 2.48* < > -- HB 7.1* < > -- HCT 21.8* < > -- MCV 87.9 < > -- PLT 141 < > -- GLUC 189* -- -- BUN 57* -- -- CREAT 1.80* -- -- NA 141 -- -- K 4.5 -- -- CHLOR 106 -- -- CO2 23 -- -- TPROT 5.0* -- -- ALB 1.3* -- -- CA 7.2* -- -- ALKPHOS 297* -- -- TBILI 6.3* -- -- AST 132* -- -- ALT 103* -- -- PTSEC 10.6 -- 10.0 APTT -- -- 23.9 INR 1.00 -- 0.93 MG 2.7* -- -- < > = values in this interval not displayed. ABG: Recent Labs 01/24/18 0420 01/23/18 2235 01/23/18 1655 PH 7.418 7.452* 7.428 PO2 173.6* 132.8* 134.2* PCO2 35.1* 31.4* 32.6* CULTURES: Other: Pleural fluid cultures No growth to date CXR FINDINGS: 01/24: COMPARISON: 01/23/2018 at 0509. ? Portable frontal view of the chest shows tip of endotracheal tube at the level of T3. ? An enteric tube is seen passing into the stomach. ? Right internal jugular central line with tip in the right atrium. ?Left internal jugular central line with tip in the midsuperior vena cava. ? Heart size is normal. ? Bilateral lung parenchymal infiltrates. ?Stable. ? No pneumothorax. ? IMPRESSION: ? Stable appearance of lines and tubes. ?Stable appearance of lung parenchymal infiltrates. ?Edema is the top consideration. ?Underlying pneumonia cannot be excluded. Assessment/Plan PROBLEMS: ACTIVE PROBLEM LIST Gallstone Pancreatitis Ruptured Abdominal Aortic Aneurysm (Aaa) (Hcc) Dic (Disseminated Intravascular Coagulation) (Hcc) Hemorrhagic Shock (Hcc) Acute Respiratory Failure (Hcc) Cardiac Arrest (Hcc) Hypernatremia Hypokalemia Hypomagnesemia Hypophosphatemia Hyperchloremia Encephalopathy Aaa (Abdominal Aortic Aneurysm, Ruptured) (Hcc) Obesity, Class I, Bmi 30-34.9 1. Multiorgan system failure following ruptured AAA on 01/12 requiring multiple exploratory laps due to severe bleeding. 2. VDRF--not tolerating aggressive weans due to mental status and tachypnea 3. Metabolic encephalopathy 4. Bilateral lower lobe infiltrates likely related to volume/lung edema given daily improvement in CXR findings with further clearing noted today left > right. 5. Severe anemia 6. Leukocytosis--trending down 7. Hemorrhagic shock--hemodynamically more stable and off pressors currently. ?Adrenal insufficiency 8. Hypernatremia--resolved. PLANS FOR TODAY: CRITICAL CARE PLAN: Dialysis, Vasopressors, Transfusions, Tube feedings, Ventilatory support and Weaning Would try trickle tube feeds if tolerated and try to wean off TPN ?EEG--noted Neurology has been consulted CVVH continues ?Go up on Diprivan to try and spare Precedex? Hopefully can keep off pressors. Transfuse one unit PRBCs on CVVH today Will start on tid DuoNebs to help with secretions. May need to look at trach tube soon? This patient has a high probability of sudden, clinically significant deterioration, which requires the highest level of physician preparedness to intervene urgently. I managed/supervised life or organ supporting interventions that required frequent physician assessment. I devoted my full attention to the direct care of this patient for the amount of time indicated below. Time I spent with family or surrogate(s) is included only if the patient was incapable of providing the necessary information or participating in medical decision making. Time devoted to teaching is not included. Patient Updated Yes Family Updated Yes Discussed with Staff Yes Time spent providing critical care services: 40 minutes excluding procedures. SIGNATURE: Dorcas Palafox MD PATIENT NAME: Naveen Akins DATE: January 24, 2018 TIME: 10:47 AM PAGER/CONTACT #: [phone] Previous Version Viry Mosher RD, LD, RD 01/24/2018 11:19 AM Attested Attestation signed by Perla Dudley at 01/25/2018 9:10 PM Discussed with the RD and agree with RD's findings and plan as documented in the RD's note. Cont TPN; attempting transition to enteral feeds Perla Dudley MD NUTRITION SUPPORT TEAM TOPIC: NUTRITION SUPPORT TEAM PROGRESS NOTE PATIENT NAME: Naveen Akins DATE OF : 1940 DATE: 01/24/2018 Nutritional Status: NO MALNUTRITION IDENTIFIED per RD 01/16/18 ? ? NUTRITION CARE PLAN: ? Problem, Etiology and Signs/Symptoms: Altered GI function related to potential ileus?as evidenced by lack of bowel sounds, distended abdomen, and hypotension. ? NST consult 01/16/18 for TPN support Interval History: LOS d 12, tolerating TPN, TF started last pm, residuals 0-35, no Bm's, BS hypoactive, no pain per NPAT Assessment: 77 year old male with Ruptured AAA s/p Emergent Repair, takeback washout, repair of serosal tears x2, on 01/12, hemorrhagic shock, acute resp failure with pulm edema, TERENCE, SVT s/p Third Look Laparotomy and?washout on 01/14, fourth look, washout, vac change on 01/16 ?remains on vent, continues on CRRT 01/19 X lap, wash out, partial fascial closure, wound vac change 01/20 pressors weaned off Remains on diprivan gtt 01/20 rt thoracentesis- breathing better 01/21 limited abdominal x lap and closure 01/22 levo at pm restarted 01/23 neuro consult, ? plans for trach/Peg 01/24 new femoral HD line per nephrology ? Tmax: 37.5 WBC: 13.44 Edema: 3+ UE, LE Lines: Art Line, Quad lumen, HD cath, all WNL Lytes: reviewed PAB: improved to 18.6 WT: 83.6 kg ( down from 104 kg) GFR: 36.68 Trig : 560 Recommendations: TPN renewed: decreased volume to 1.5 L/24 hrs, decreased NACL, increased insulin, dc'd lipids, ( of note no K in TPN bag) TPN script: 1.5 L /24 hrs providing 1320 calories ( 16 kcals/kg ABW 83 kg) and 80 gms pro ( ~ 1.0 gms/kg ABW 83 kg) per day ? CHO:insulin ratio is 9.8:1 , with 294 gms CHO in TPN , 30 units in TPN bag ? Impact 1.5 at 50-60 cc/hr is goal--> provides 2495-6413 calories and 113-135 pro , currently at 30 cc/hr, advance slowly ? Diprivan @ 15 mcq per hr--> 360ml per day, or 396 calories from lipid, checked Trig levels--> high at 560, dc'd lipid from TPN bag ? Collaborated with Dr Dudley and orders written. Vitals: Temperature Max in 24 hours: Temp (24hrs), Av.8 ?C (98.2 ?F), Min:35.7 ?C (96.3 ?F), Max:37.5 ?C (99.5 ?F) Current Vital Signs: BP 132/57 Pulse 79 Temp (!) 35.7 ?C (96.3 ?F) (Axillary) Resp 26 Ht 172.7 cm (5' 8) Wt 83.6 kg (184 lb 4.9 oz) SpO2 99% BMI 28.02 kg/m? Current Weight: Weight: 83.6 kg (184 lb 4.9 oz) Intake AND Output: Intake/Output Summary (Last 24 hours) at 01/24/18 1104 Last data filed at 01/24/18 1000 Gross per 24 hour Intake 2165 ml Output 2679 ml Net -514 ml Laboratory Data: Recent Labs 01/24/18 0420 01/23/18 0435 01/22/18 1800 NA 141 139 139 K 4.5 5.0 4.9 CHLOR 106 106 105 CO2 23 22 21 CREAT 1.80* 1.75* 1.78* BUN 57* 54* 53* GLUC 189* 234* 216* P 3.5 4.7 4.4 TPROT 5.0* 5.5* -- ALB 1.3* 1.4* 1.5* MG 2.7* 2.8* 2.8* CA 7.2* 7.4* 7.6* Recent Labs 01/23/18 1655 PREALB 18.6* Viry Mosher, KRISHAN, LD, [facility] Pager: [phone] Increments: 3 Chaplain Serna Chaplain 01/24/2018 11:45 AM Signed [facility] Spiritual Care Visit- Brief Note Name: Naveen Akins Date: January 24, 2018 Notes: attempted to check in w/pt's fam--everyone was asleep except for his dtr, who was on the phone--we made eye contact and acknowledged one another.SC will continue to follow as needed. Envelope Stamping Machine Operator Signature: Chaplain Daphne To contact the Spiritual Care Department: Please call [phone] or Page the On-Call Envelope Stamping Machine Operator at pager [phone] Thank you for the opportunity to be of service. This is an electronically created document. IF PRINTED, PLEASE DO NOT REMOVE FROM THE CHART OR MODIFY PRINTED COPY. Rosanna Talbert MD 01/24/2018 2:59 PM Signed Nephrology Progress Note Following for TERENCE. Pt is intubated/sedated. Remains off pressor. Current Inpatient Medications: Current Facility-Administered Medications Ordered in Epic: Parenteral Nutrition - Adult INTRAVENOUS ONCE TPN (1800 START) H Edwin Dudley ipratropium-albuterol 3 mL nebulizer solution (DUONEB) 3 mL INHALATION QID Paulo (Meter Repair Shop Supervisor) Hudock 3 mL at 01/24/18 1125 dexmedetomidine 400 mcg in NaCl 0.9% 100 mL (PRECEDEX) 0.2- 0.7 mcg/kg/hr (Adjusted) INTRAVENOUS CONTINUOUS Dorcas Mckeon Decoy midazolam 100 mg in D5W 100 mL (VERSED) 1-10 mg/hr INTRAVENOUS CONTINUOUS Dorcas Mckeon Decoy docusate sodium oral liquid 100 mg/10 mL (DIOCTO,COLACE) 100 mg OROGASTRIC BID Dorcas Palafox hydrocortisone sodium succinate (PF) 50 mg injection (Solu- CORTEF) 50 mg INTRAVENOUS q 12 H Dorcas Palafox Parenteral Nutrition - Adult INTRAVENOUS ONCE TPN (1800 START) H Edwin Dudley Last Rate: 75 mL/hr at 01/24/18 0400 senna leaf extract 176 mg/5 mL 528 mg 15 mL OROGASTRIC BID Dionicio (Res) Stevens 528 mg at 01/24/18 0842 carboxymethylcellulose sodium 1-2 Drop (CELLUVISC) 1-2 Drop BOTH EYES PRN Venkat Paniagua 2 Drop at 01/24/18 1018 polyvinyl alcohol-povidone 1.4-0.6 % 1 Drop (REFRESH) 1 Drop BOTH EYES QID PRN Paulo (Meter Repair Shop Supervisor) Hudock 1 Drop at 01/24/18 0838 heparin 1,000 unit/mL 4,000 Units injection 4,000 Units INTRAVENOUS 3 Times weekly with dialysis Ancelmovinaylitaidalmis Eder 4,000 Units at 01/22/18 2049 heparin 5,000 Units injection 5,000 Units SUBCUTANEOUS q 12 H Mervin (Res) Wally 5,000 Units at 01/24/18 0922 NaCl 0.9% 1,000 mL iv bolus 1,000 mL INTRAVENOUS PRN DIALYSIS Shen Lorenzo prismaSOL BGK 4 K / 2.5 mEq Ca/Liter 5,000 mL 5,000 mL HEMODIALYSIS continuous (no dispense) Shen Lorenzo Last Rate: 700 mL/hr at 01/16/18 1300 5,000 mL at 01/24/18 1113 prismaSOL BGK 4 K / 2.5 mEq Ca/Liter 5,000 mL 5,000 mL HEMODIALYSIS continuous (no dispense) Shen Lorenzo Last Rate: 700 mL/hr at 01/16/18 1300 5,000 mL at 01/24/18 0543 prismaSOL BGK 4 K / 2.5 mEq Ca/Liter 5,000 mL 5,000 mL HEMODIALYSIS continuous (no dispense) Shen Lorenzo Last Rate: 700 mL/hr at 01/16/18 1300 5,000 mL at 01/24/18 1114 dextrose 40 % 15 g 15 g ORAL PRN Jack Regula Or glucagon 1 mg injection (GLUCAGEN) 1 mg INTRAMUSCULAR PRN Jack Regula Or dextrose 50% in water 25 mL syringe 12.5 g INTRAVENOUS PRN Jack Regula magnesium sulfate 1 g in D5W 100 mL 1 g INTRAVENOUS PRN Emilie (Res) Cardella Last Rate: 100 mL/hr at 01/15/18 0016 1 g at 01/15/18 0016 magnesium sulfate in water 2 g in sterile water 50 ml 2 g INTRAVENOUS PRN Emilie (Res) Cardella Last Rate: 25 mL/hr at 01/13/18 1004 2 g at 01/13/18 1004 fentaNYL 20 mcg/mL iv infusion in NaCl 0.9% 100 mL 0-100 mcg/hr INTRAVENOUS CONTINUOUS Smooth C Winston Last Rate: 5 mL/hr at 01/24/18 0730 100 mcg/hr at 01/24/18 0730 pantoprazole 40 mg injection (PROTONIX) 40 mg INTRAVENOUS DAILY (6 AM) Emilie (Res) Cardella 40 mg at 01/24/18 0633 NORepinephrine 16 mg in D5W 250 mL (LEVOPHED) 0-30 mcg/min INTRAVENOUS CONTINUOUS Dionicio (Res) Stevens Stopped at 01/24/18 0900 Chlorhexidine Gluconate 0.12 % 15 mL (PERIDEX) 15 mL ORAL q 12 H Elder Yu) Kalee 15 mL at 01/24/18 0838 No current [facility]-ordered outpatient prescriptions on file. Vitals: BP 132/57 Pulse 80 Temp (!) 35.6 ?C (96.1 ?F) (Axillary) Resp 29 Ht 172.7 cm (5' 8) Wt 83.6 kg (184 lb 4.9 oz) SpO2 100% BMI 28.02 kg/m? BLOOD PRESSURE RANGE: No data recorded. ; No data recorded. 24HR INTAKE/OUTPUT: Intake/Output Summary (Last 24 hours) at 01/24/18 1412 Last data filed at 01/24/18 1200 Gross per 24 hour Intake 1812 ml Output 2351 ml Net -539 ml Physical exam: Constitutional: Sedated Skin: no rash, turgor wnl Heent: intubated Neck: no bruits or jvd noted Cardiovascular: S1, S2 normal without m/r/g Respiratory: Coarse breath sound bilaterally Abdomen: soft, nt, nd Ext: 3+ lower extremity edema/anasarca Data: Labs: Recent Labs 01/24/18 1139 01/24/18 0420 01/23/18 1655 01/23/18 0435 WBC -- 13.44* 15.41* 15.80* HB 7.9* 7.1* 8.2* 8.0* HCT -- 21.8* 25.0* 24.0* MCV -- 87.9 87.1 86.3 PLT -- 141 152 130* Recent Labs 01/24/18 0420 01/23/18 0435 01/22/18 1800 NA 141 139 139 K 4.5 5.0 4.9 CO2 23 22 21 MG 2.7* 2.8* 2.8* BUN 57* 54* 53* CREAT 1.80* 1.75* 1.78* CA 7.2* 7.4* 7.6* Assessment and Plan 1. Acute kidney injury on chronic kidney disease stage 3. Baseline SCr is 1.36 mg/dL on 11/14/17. CKD is likely due to nephrosclerosis related to PAD. TERENCE is 2/2 ischemic ATN from shock. Pt remains anuric. Currently off pressor. Continued problem with catheter blood flow. D/w Dr. Paniagua. I will place femoral dialysis catheter and remove the left IJ catheter (may use for future site of TDC). Resume CRRT with a new catheter. Continue UF rate at 50 mL/hr since BP is stable (currently of NE gtt). ? 2. Shock. Improved. Initially due to hemorrhagic shock-massive blood loss from ruptured AAA +/- adrenal insufficiency. Currently off?pressor. Continue hydrocortisone. ? 5. Ruptured AAA. s/p repair 01/12/18. Management as per vascular surgery. ? 6. Acute hypoxic respiratory failure. Ventilator dependent. Vent management as per ICU. O>I with CRRT UF. 7. Encephalopathy. Neuro evaluation in progress. To get head CT. d/w Dr. Paniagua and Dr. Palafox. Please do not hesitate to contact me at [phone] if there is any question or concern. Rosanna Talbert MD (Shen Lorenzo) Brad Castillo MD 01/24/2018 2:28 PM Signed NEUROINTENSIVE CARE STAFF ? The patient was seen and examined independently. ?Labs, vitals and imaging were reviewed personally. Where applicable, the case was discussed with the patient and/or family at length, and all questions were addressed. ? Pertinent physical findings, focused assessment and plan: ? The patient is unresponsive to voice or light tactile stimulation. He is intubated and overbreathing the ventilator at 41 resps/min. Pupils are reactive 3->1 OU direct and consensual. Oculocephalics are absent. Corneals, gag and cough are present. Grimace is symmetric. The pt has weak extension to noxious nailbed pressure R>L. Tone is flaccid throughout. Five days of continuous EEG showed no ictal or epileptiform discharges, only generalized slowing maximum bifrontal. Given the pt's clinical course I suspect hypoxic-ischemic encephalopathy. No neuroimaging is available. I will get a CTH I- to start and if equivocal an MRI would be useful in discussing prognosis. Further recommendations to follow depending on results. ? 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 Frequent physician assessment and appropriate services were provided in order to prevent further decline of the patient's life-threatening condition(s).?I devoted my full attention at bedside to directly providing, managing and evaluating care of this patient for the amount of time indicated below. Time may include specific [facility]-approved services including review of chest radiography, interpretation of cardiac function measurements, ECGs, pulse oximetry, ventilator management, and vascular access procedures as necessary, but does not include time spent teaching or procedures billed separately. ?? Critical care time: 35?minutes. ?? SIGNATURE: Brad Castillo MD PATIENT NAME: Naveen Akins DATE: January 24, 2018 TIME: 2:13 PM PAGER/CONTACT #:?[phone] Margaret Townsend RN, RN 01/24/2018 2:22 PM Addendum Wound Care Consult Team Assessment Note: PATIENT NAME: Naveen Akins Reason for Assessment: Abdominal wound, wound vac Assessment: Patient seen today by Kaylene Magana INDEPENDENT SALES REPRESENTATIVE and RN, see Wound Expert for detailed documentation. Midlline abdominal wound with large blood clot distal end, wound bed dry and dusky, wound measures 35x4.5x2.0 cm. Visit time: 37 minutes Wound Evaluation: Newly Identified Goals: Maintain moist wound healing Recommendations: Wound vac dressing changes 3 times per week to midline abdominal wound using white and black foam, suction 150mmHg cont., turn every 2 hours, bilateral prevalon boots, allevyn foam to coccyx change every 3 days or when soiled. Will see patient Saturday January 27, 2018 to change dressing again. Electronically Signed By: IGNACIA Agrawal,RN,CWON Previous Version Rosanna Talbert MD 01/24/2018 3:02 PM Signed BEDSIDE PROCEDURE NOTE DIALYSIS CATHETER Date/Start Time: 01/24/2018 3:00 PM Performed by: SHEN LORENZO Authorized by: SHEN LORENZO Consent/Burt Protocol Written Consent Obtained: Yes Sign In Communication: Completed Time Out completed: Team confirms correct patient, procedure, side/site, position (if applicable) and completion AND review of fire risk assessment/protocols (if appropriate) Affirmation of Time Out: Yes Sign Out Discussion: Yes Pre-procedure Details: Personnel directly involved with the procedure wore the appropriate PPE. PPE Used: Sterile gloves, sterile gown, mask, goggles and cap The area was prepped with chlorhexidine (Chloroprep) and allowed to dry. A sterile full body drape was applied following the usual aseptic technique. Usual aseptic technique was not followed due to clinical factors necessitating an emergent procedure [facility] Central Line Insertion Checklist Utilized: yes Medications: Local anesthesia Local Anesthesia (see MAR): Lidocaine 1% Procedure Details: Indication: Hemodialysis and replace a malfunctioning catheter Patient Position: Flat Site: Right femoral vein Site Selection Rationale: Left IJ dialysis catheter malfunction; R IJ vein is occupied by CVC. New Stick: The vessel was cannulated under direct ultrasound visualization with a single lumen catheter. Line Transduced: No A small skin incision was made and the tract was sequentially dilated with semi-rigid tissue dilators. A 20 cm triple lumen, 12 Fr, non-tunneled catheter was advanced over the guidewire and left in situ while the guidewire was removed. Assessment: Blood return through all ports and all ports flushed without difficulty A sterile, transparent, occlusive dressing was placed over the site. All catheters, needles, and wires were accounted for and intact Number of attempts: 1 Successful Placement: Yes Post-procedure Details: Patient tolerated the procedure well with no immediate complications Estimated Blood Loss: Scant Specimens Sent: None SIGNATURE: Rosanna Talbert MD PATIENT NAME: Naveen Akins DATE: January 24, 2018 TIME: 3:00 PM PAGER/CONTACT #: Chaplain Robbins Chaplain 01/24/2018 11:20 PM Signed SPIRITUALCARE Spiritual Care Visit- Brief Note Name: Naveen Akins Date: January 24, 2018 Notes: Talked with the nurse about patients condition. Went to waiting room and sat with the and talked about the strength she receives from God. She has never left the hospital since he was brought here. Family is thankful for prayer and visits. Envelope Stamping Machine Operator Signature: Chaplain Rosendo To contact the Spiritual Care Department: Please call [phone] or Page the On-Call Envelope Stamping Machine Operator at pager [phone] Thank you for the opportunity to be of service. This is an electronically created document. IF PRINTED, PLEASE DO NOT REMOVE FROM THE CHART OR MODIFY PRINTED COPY. Dorcas Palafox MD 01/25/2018 11:04 AM Addendum MICU - PROGRESS NOTE SERVICE DATE: 01/25/2018 SERVICE TIME: 8:52 AM Admission Date: 01/12/2018 AGE: [age] year old LOS: 13 days Subjective REASON FOR ICU ADMISSION: Confusion and Delirium, Renal Failure, Respiratory Failure, Shock and S/P Surgery Somnolent. Will not respond to name. Fentanyl and Versed titrated to respiratory rate with gtts at 100mcg/hr and 6mg/hr, respectively. Secretions thick and creamy from ETTube. VENT: PRVC-18 Vt-450 P-5 FiO2 40% Ve-17.3 SaO2 97%. Objective VITAL SIGNS (last 24hrs min/max): Temp Av.4 ?C (97.6 ?F) Min: 35.6 ?C (96.1 ?F) Max: 36.8 ?C (98.2 ?F) Pulse Av.7 Min: 49 Max: 116 Arterial BP 1 Min: 78/35 Max: 191/87 Cuff No Data Recorded Pain Score: 0/10 Vital signs reviewed. BP 132/57 Pulse 101 Temp (Src) 97.2 (Axillary) Resp 34 Ht 5' 8 (1.73m) Wt 185 lb 3 oz (84.0kg) SpO2 98% BMI 28.16 kg/(m2). Temp (24hrs), Av.4 ?C (97.6 ?F), Min:35.6 ?C (96.1 ?F), Max:36.8 ?C (98.2 ?F) NET FLUID BALANCE Intake/Output Summary (Last 24 hours) at 01/25/18 0852 Last data filed at 01/25/18 0800 Gross per 24 hour Intake 2009.4 ml Output 2713 ml Net -703.6 ml MEDICATIONS Current Facility-Administered Medications: Parenteral Nutrition - Adult INTRAVENOUS ONCE TPN (1800 START) ipratropium-albuterol 3 mL nebulizer solution (DUONEB) 3 mL INHALATION QID midazolam 100 mg in D5W 100 mL (VERSED) 1-10 mg/hr INTRAVENOUS CONTINUOUS docusate sodium oral liquid 100 mg/10 mL (DIOCTO,COLACE) 100 mg OROGASTRIC BID hydrocortisone sodium succinate (PF) 50 mg injection (Solu- CORTEF) 50 mg INTRAVENOUS q 12 H senna leaf extract 176 mg/5 mL 528 mg 15 mL OROGASTRIC BID carboxymethylcellulose sodium 1-2 Drop (CELLUVISC) 1-2 Drop BOTH EYES PRN polyvinyl alcohol-povidone 1.4-0.6 % 1 Drop (REFRESH) 1 Drop BOTH EYES QID PRN heparin 1,000 unit/mL 4,000 Units injection 4,000 Units INTRAVENOUS 3 Times weekly with dialysis heparin 5,000 Units injection 5,000 Units SUBCUTANEOUS q 12 H NaCl 0.9% 1,000 mL iv bolus 1,000 mL INTRAVENOUS PRN DIALYSIS prismaSOL BGK 4 K / 2.5 mEq Ca/Liter 5,000 mL 5,000 mL HEMODIALYSIS continuous (no dispense) prismaSOL BGK 4 K / 2.5 mEq Ca/Liter 5,000 mL 5,000 mL HEMODIALYSIS continuous (no dispense) prismaSOL BGK 4 K / 2.5 mEq Ca/Liter 5,000 mL 5,000 mL HEMODIALYSIS continuous (no dispense) dextrose 40 % 15 g 15 g ORAL PRN Or glucagon 1 mg injection (GLUCAGEN) 1 mg INTRAMUSCULAR PRN Or dextrose 50% in water 25 mL syringe 12.5 g INTRAVENOUS PRN magnesium sulfate 1 g in D5W 100 mL 1 g INTRAVENOUS PRN magnesium sulfate in water 2 g in sterile water 50 ml 2 g INTRAVENOUS PRN fentaNYL 20 mcg/mL iv infusion in NaCl 0.9% 100 mL 0-100 mcg/hr INTRAVENOUS CONTINUOUS pantoprazole 40 mg injection (PROTONIX) 40 mg INTRAVENOUS DAILY (6 AM) NORepinephrine 16 mg in D5W 250 mL (LEVOPHED) 0-30 mcg/min INTRAVENOUS CONTINUOUS Chlorhexidine Gluconate 0.12 % 15 mL (PERIDEX) 15 mL ORAL q 12 H Lines, Drains, and Airways Line Arterial Line 01/19/18 0840 Arterial Line Right Radial 6 days Central Line Quadruple Lumen 01/19/18 1056 Right Neck 5 days Dialysis / Apheresis Double Lumen 01/24/18 1400 Non-tunneled Right Groin less than 1 day Drain GI Feed/Drain 01/12/18 0100 13 days Drain/Tube 01/19/18 1015 Midline Abdomen 5 days Airway Airway Endotracheal Tube 01/12/18 1138 12 days PHYSICAL EXAM PERFORMED: HEENT: Lips with hemorrhagic ulcers. Clear drainage around ETT. Oral Mucosa: Dry mucous membranes Feeding Tube: Yes. Orogastric tube Eyes: PERRLA at 4mm. Neck: Unremarkable; No adenopathy or JVD Cardiovascular: Regular rhythm Respiratory: Coarse inspiratory and expiratory rhonchi bilaterally. %FIO2 Min: 40 Max: 50 Abdomen: Soft, Distended and Hypoactive BSs. WoundVac in place. Extremities: Edema- Yes with 1+ UE/LE pitting edema Peripheral Pulses- Present all extremities Capillary Refill- less than 3 seconds Skin: Abnormalities- No Neurologic: Sedated Respiratory/Nursing Documentation: O2 Therapy: Ventilator (01/25/18747) Invasive Ventilator Mode: Pressure Regulated Volume Control (01/25/18747) Set Ventilator Respiratory Rate (BPM): 18 (01/25/18747) Total Respiratory Rate (BPM): 35 (01/25/18747) Tidal Volume Set (mL): 480 (01/25/18747) Exhaled Tidal Volume (mL): 451 (01/25/18747) Minute Volume (L): 16.8 (01/25/18747) Peak Inspiratory Pressure (cm H2O): 18 (01/25/18747) PEEP/CPAP (cm H2O): 5 (01/25/18747) HEMODYNAMIC DATA: NUTRITION: Enteral Feeds: Yes Tube Feeds Impact 1.5 at 40ml/hr DATA: Diagnostic tests reviewed for today's visit: Most recent labs and imaging results. LABS: Recent Labs 01/25/18 0425 01/24/18 0420 01/23/18 1020 WBC 15.78* < > 13.44* < > -- RBC 3.68* < > 2.48* < > -- HB 10.4* < > 7.1* < > -- HCT 31.7* < > 21.8* < > -- MCV 86.1 < > 87.9 < > -- PLT 145 < > 141 < > -- GLUC 147* -- 189* -- -- BUN 58* -- 57* -- -- CREAT 1.68* -- 1.80* -- -- NA 139 -- 141 -- -- K 4.2 -- 4.5 -- -- CHLOR 107 -- 106 -- -- CO2 20* -- 23 -- -- TPROT -- -- 5.0* -- -- ALB -- -- 1.3* -- -- CA 7.4* -- 7.2* -- -- ALKPHOS -- -- 297* -- -- TBILI -- -- 6.3* -- -- AST -- -- 132* -- -- ALT -- -- 103* -- -- PTSEC -- -- 10.6 -- 10.0 APTT -- -- -- -- 23.9 INR -- -- 1.00 -- 0.93 MG 2.6 -- 2.7* -- -- < > = values in this interval not displayed. ABG: Recent Labs 01/25/18 0425 01/24/18 2230 01/24/18 1820 PH 7.466* 7.443 7.420 PO2 78.4* 77.4* 97.6* PCO2 31.4* 30.2* 33.6* CULTURES: Sputum: 01/24 pending. CXR FINDINGS: INDICATION: ?Respiratory failure. ? ? COMPARISON: 01/24/2018 ? FINDINGS: The endotracheal tube and esophagogastric tube appear stable. ?The left central venous catheter has been removed. ?Right central venous catheter is stable. ?Stable pulmonary infiltrates are noted bilaterally. ?Heart is not enlarged. ? IMPRESSION: ? Recent removal of left central venous catheter. ?There is no evidence for pneumothorax. ?Stable appearance otherwise. OTHER IMAGIN/21 Left USND: Small/minimal effusion. Assessment/Plan PROBLEMS: ACTIVE PROBLEM LIST Gallstone Pancreatitis Ruptured Abdominal Aortic Aneurysm (Aaa) (Hcc) Dic (Disseminated Intravascular Coagulation) (Hcc) Hemorrhagic Shock (Hcc) Acute Respiratory Failure (Hcc) Cardiac Arrest (Hcc) Hypernatremia Hypokalemia Hypomagnesemia Hypophosphatemia Hyperchloremia Encephalopathy Aaa (Abdominal Aortic Aneurysm, Ruptured) (Hcc) Obesity, Class I, Bmi 30-34.9 1. Hypoxic VDRF following ruptured AAA 01/12 with multiple surgeries since for relooks and clean-outs 2. Left-sided infiltrates on CXR--no fever or rising WBC 3. Metabolic encephalopathy related to hypoxia/shock at admission with cardiac arrest and early days of hospitalization with MOSF. 4. TERENCE on CKD on CVVH 5. Ileus--tolerating tube feeds 6. Shock ---off pressors 7. Mild anemia-stable 8. Hypertriglyceridemia--560 on 01/24. Propofol stopped. PLANS FOR TODAY: CRITICAL CARE PLAN: Bronchodilators , Dialysis, Tube feedings, Ventilatory support and will consult ENT for trach tube placement. PEG later if needed once abdomen heals further. Hope to D/C TPN today. Increase DuoNebs to 4h Add Budesonide Await Sputum culture Would like to back off on Hydrocortisone rapidly Likely to need LTAC placement Max doses on Fentanyl at 200mcg/hr and Versed at 10mg/hr. Stop Propofol due to Trigs level of 560 on 01/24. Have been able to stop Precedex and use the above two. This patient has a high probability of sudden, clinically significant deterioration, which requires the highest level of physician preparedness to intervene urgently. I managed/supervised life or organ supporting interventions that required frequent physician assessment. I devoted my full attention to the direct care of this patient for the amount of time indicated below. Time I spent with family or surrogate(s) is included only if the patient was incapable of providing the necessary information or participating in medical decision making. Time devoted to teaching is not included. Patient Updated Yes Family Updated Yes Discussed with Staff Yes Daily discussions with family and they are agreeable to the above plan. They continue to want full support given including Trach +/- PEG as indicated. Informed them of very likely prolonged course with a still uncertain outcome. They understand and all questions answered. They are appreciative of our care. Time spent providing critical care services: 40 minutes excluding procedures. SIGNATURE: Dorcas Palafox MD PATIENT NAME: Naveen Akins DATE: January 25, 2018 TIME: 8:52 AM PAGER/CONTACT #: [phone] Previous Version Donnell Velazco RN, RN 01/25/2018 10:24 AM Signed Nursing Progress Note Patient Name: Naveen Akins [id number] Daily Note: Daily supervision for CRRT tx completed. Discussed tx with MAGALY Song, no complications at this time. Good flows from new femoral CVC. This note was completed by: MAGALY Clayton MD 01/25/2018 11:20 AM Signed Nephrology Progress Note Following for TERENCE. Pt is intubated. Remains on ventilator. Sedated. Cannot do ROS. Current Inpatient Medications: Current Facility-Administered Medications Ordered in Epic: ipratropium-albuterol 3 mL nebulizer solution (DUONEB) 3 mL INHALATION q 4 H Dorcas Palafox budesonide 0.5 mg/2 mL 0.5 mg (PULMICORT) 0.5 mg INHALATION BID Dorcas Palafox [START ON 01/26/2018] hydrocortisone sodium succinate (PF) 25 mg injection (Solu-CORTEF) 25 mg INTRAVENOUS q 12 H Dorcas Palafox metoclopramide HCl 5 mg injection (REGLAN) 5 mg INTRAVENOUS q 6 H Dorcas Palafox midazolam 100 mg in D5W 100 mL (VERSED) 1-10 mg/hr INTRAVENOUS CONTINUOUS Dorcas Palafox Last Rate: 6 mL/hr at 01/25/18 0800 6 mg/hr at 01/25/18 0800 docusate sodium oral liquid 100 mg/10 mL (DIOCTO,COLACE) 100 mg OROGASTRIC BID Dorcas Mike Decoy 100 mg at 01/24/18 2145 hydrocortisone sodium succinate (PF) 50 mg injection (Solu- CORTEF) 50 mg INTRAVENOUS q 12 H Dorcas Mckeon Decoy 50 mg at 01/24/18 1512 senna leaf extract 176 mg/5 mL 528 mg 15 mL OROGASTRIC BID Dionicio (Res) Stevens 528 mg at 01/24/18 2145 carboxymethylcellulose sodium 1-2 Drop (CELLUVISC) 1-2 Drop BOTH EYES PRN Venkat Paniagua 1 Drop at 01/24/18 1543 polyvinyl alcohol-povidone 1.4-0.6 % 1 Drop (REFRESH) 1 Drop BOTH EYES QID PRN Paulo (Meter Repair Shop Supervisor) Hudock 1 Drop at 01/24/18 1511 heparin 1,000 unit/mL 4,000 Units injection 4,000 Units INTRAVENOUS 3 Times weekly with dialysis Troy Godoy 4,000 Units at 01/22/18 2049 heparin 5,000 Units injection 5,000 Units SUBCUTANEOUS q 12 H Mervin (Res) Wally 5,000 Units at 01/24/18 2147 NaCl 0.9% 1,000 mL iv bolus 1,000 mL INTRAVENOUS PRN DIALYSIS Shen Lorenzo prismaSOL BGK 4 K / 2.5 mEq Ca/Liter 5,000 mL 5,000 mL HEMODIALYSIS continuous (no dispense) Shen Lorenzo Last Rate: 800 mL/hr at 01/25/18 0836 5,000 mL at 01/25/18 0836 prismaSOL BGK 4 K / 2.5 mEq Ca/Liter 5,000 mL 5,000 mL HEMODIALYSIS continuous (no dispense) Shen Lorenzo Last Rate: 800 mL/hr at 01/25/18 0835 5,000 mL at 01/25/18 0835 prismaSOL BGK 4 K / 2.5 mEq Ca/Liter 5,000 mL 5,000 mL HEMODIALYSIS continuous (no dispense) Shen Lorenzo Last Rate: 800 mL/hr at 01/25/18 0835 5,000 mL at 01/25/18 0835 dextrose 40 % 15 g 15 g ORAL PRN Jack Regula Or glucagon 1 mg injection (GLUCAGEN) 1 mg INTRAMUSCULAR PRN Jack Regula Or dextrose 50% in water 25 mL syringe 12.5 g INTRAVENOUS PRN Jack Regula magnesium sulfate 1 g in D5W 100 mL 1 g INTRAVENOUS PRN Emilie (Res) Cardella Last Rate: 100 mL/hr at 01/15/18 0016 1 g at 01/15/18 0016 magnesium sulfate in water 2 g in sterile water 50 ml 2 g INTRAVENOUS PRN Emilie (Res) Cardella Last Rate: 25 mL/hr at 01/13/18 1004 2 g at 01/13/18 1004 fentaNYL 20 mcg/mL iv infusion in NaCl 0.9% 100 mL 0-200 mcg/hr INTRAVENOUS CONTINUOUS Dorcas Mike Decoy Last Rate: 7.5 mL/hr at 01/25/18 0800 150 mcg/hr at 01/25/18 0800 pantoprazole 40 mg injection (PROTONIX) 40 mg INTRAVENOUS DAILY (6 AM) Emilie (Res) Cardella 40 mg at 01/25/18 0530 NORepinephrine 16 mg in D5W 250 mL (LEVOPHED) 0-30 mcg/min INTRAVENOUS CONTINUOUS Dionicio (Res) Stevens Stopped at 01/24/18 0900 Chlorhexidine Gluconate 0.12 % 15 mL (PERIDEX) 15 mL ORAL q 12 H Elder Yu) Kalee 15 mL at 01/24/18 2145 No current [facility]-ordered outpatient prescriptions on file. Vitals: BP 132/57 Pulse 100 Temp 36.1 ?C (97 ?F) Resp (!) 32 Ht 172.7 cm (5' 8) Wt 84 kg (185 lb 3 oz) SpO2 96% BMI 28.16 kg/m? BLOOD PRESSURE RANGE: No data recorded. ; No data recorded. 24HR INTAKE/OUTPUT: Intake/Output Summary (Last 24 hours) at 01/25/18 1110 Last data filed at 01/25/18 0900 Gross per 24 hour Intake 2265.4 ml Output 2436 ml Net -170.6 ml Physical exam: Constitutional: ?Sedated Skin: no rash, turgor wnl Heent: ?intubated Neck: no bruits or jvd noted Cardiovascular: ?S1, S2 normal?without m/r/g Respiratory: Coarse breath sound bilaterally Abdomen: ??soft, nt, nd Ext: 2+?lower extremity edema/anasarca Data: Labs: Recent Labs 01/25/18 0425 01/24/18 1820 01/24/18 1139 01/24/18 0420 WBC 15.78* 16.37* -- 13.44* HB 10.4* 10.4* 7.9* 7.1* HCT 31.7* 31.9* -- 21.8* MCV 86.1 87.2 -- 87.9 PLT 145 157 -- 141 Recent Labs 01/25/18 0425 01/24/18 0420 01/23/18 0435 NA 139 141 139 K 4.2 4.5 5.0 CO2 20* 23 22 MG 2.6 2.7* 2.8* BUN 58* 57* 54* CREAT 1.68* 1.80* 1.75* CA 7.4* 7.2* 7.4* Assessment and Plan 1. Acute kidney injury on chronic kidney disease stage 3. Baseline SCr is 1.36 mg/dL on 11/14/17. CKD is likely due to nephrosclerosis related to PAD. TERENCE is 2/2 ischemic ATN from shock. Currently off pressor. Pt may be making more urine (difficult to quantify since he is incontinent). CVVHDF is progressing well. Effluent dose is adequate. Cath flow is good with the new femoral catheter. Continue UF rate at 50 mL/hr since BP is stable (currently off NE gtt).?However, will back off if BP drops. ? 2. Shock. Improved. Initially due to hemorrhagic shock-massive blood loss from ruptured AAA +/- adrenal insufficiency. Currently off?pressor. Continue hydrocortisone. ? 5. Ruptured AAA. s/p repair 01/12/18. Management as per vascular surgery. ? 6. Acute hypoxic respiratory failure. Ventilator dependent. Vent management as per ICU. O>I with CRRT UF. ? 7. Encephalopathy. Neuro evaluation in progress. Please do not hesitate to contact me at [phone] if there is any question or concern. Rosanna Talbert MD (Shen Lorenzo) Viry Mosher, RD, LD, RD 01/25/2018 11:53 AM Attested Attestation signed by Perla Dudley at 01/25/2018 9:06 PM Discussed with the RD and agree with RD's findings and plan as documented in the RD's note. Cont TPN; not yet tolerating enteral feeds Perla Dudley MD NUTRITION SUPPORT TEAM TOPIC: NUTRITION SUPPORT TEAM PROGRESS NOTE PATIENT NAME: Naveen Akins DATE OF : 1940 DATE: 01/25/2018 Nutritional Status: NO MALNUTRITION IDENTIFIED per RD 01/16/18 ? ? NUTRITION CARE PLAN: ? Problem, Etiology and Signs/Symptoms: Altered GI function related to potential ileus?as evidenced by lack of bowel sounds, distended abdomen, and hypotension. ? NST consult 01/16/18 for TPN support Interval History: LOS d 13, tolerating TPN, had been tolerating TF @ 40 cc/hr until just now--> + emesis, residuals low, no BM, appears to have the hiccups Assessment: 77 year old male with Ruptured AAA s/p Emergent Repair, takeback washout, repair of serosal tears x2, on 01/12, hemorrhagic shock, acute resp failure with pulm edema, TERENCE, SVT s/p Third Look Laparotomy and?washout on 01/14, fourth look, washout, vac change on 01/16 ?remains on vent, continues on CRRT 01/19 ?X lap, wash out, partial fascial closure, wound vac change 01/20 pressors weaned off Remains on diprivan gtt 01/20 rt thoracentesis- breathing better 01/21 limited abdominal x lap and closure 01/22 levo at pm restarted 01/23 neuro consult, ? plans for trach/Peg 01/24 new femoral HD line per nephrology, working good 01/25 + emesis ? ? Tmax: 36.8 WBC: increasing to 15.78 Edema: 3+ UE, LE Lines: Art Line, Quad lumen, HD cath, all WNL Lytes: reviewed PAB: improved to 18.6 WT: ?84.0 kg ( down from 104 kg) GFR: 39.72 Trig : 560--> diprivan dc'd, lipid in TPN dc'd as well ? Recommendations: TPN renewed: increased pro, dextrose and insulin , added phos, adjusted Cl/CO 2, ? TPN script: 1.5 L /24 hrs providing 1660 calories ( 20 kcals/kg ABW 84 kg) and 90 gms pro ( ~ 1.0 gms/kg ABW 84 kg) per day ? CHO:insulin ratio is ?10.9:1 , with 382 gms CHO in TPN , 35 units in TPN bag ? Impact 1.5 at 50-60 ?cc/hr is goal-->?provides 5070-6926 calories and 113-135 pro , currently at 40 cc/hr, advance slowly, now on hold d/t + emesis ? Diprivan dc'd d/t high trig?, now on fentanyl Collaborated with Dr Dudley and orders written. Vitals: Temperature Max in 24 hours: Temp (24hrs), Av.4 ?C (97.6 ?F), Min:36.1 ?C (97 ?F), Max:36.8 ?C (98.2 ?F) Current Vital Signs: BP 132/57 Pulse (P) 107 Temp 36.1 ?C (97 ?F) Resp (!) (P) 31 Ht 172.7 cm (5' 8) Wt 84 kg (185 lb 3 oz) SpO2 (P) 95% BMI 28.16 kg/m? Current Weight: Weight: 84 kg (185 lb 3 oz) Intake AND Output: Intake/Output Summary (Last 24 hours) at 01/25/18 1142 Last data filed at 01/25/18 0900 Gross per 24 hour Intake 2265.4 ml Output 2436 ml Net -170.6 ml Laboratory Data: Recent Labs 01/25/18 0425 01/24/18 0420 01/23/18 0435 01/22/18 1800 NA 139 141 139 139 K 4.2 4.5 5.0 4.9 CHLOR 107 106 106 105 CO2 20* 23 22 21 CREAT 1.68* 1.80* 1.75* 1.78* BUN 58* 57* 54* 53* GLUC 147* 189* 234* 216* P 2.9 3.5 4.7 4.4 TPROT -- 5.0* 5.5* -- ALB -- 1.3* 1.4* 1.5* MG 2.6 2.7* 2.8* 2.8* CA 7.4* 7.2* 7.4* 7.6* Recent Labs 01/23/18 1655 PREALB 18.6* Viry Mosher, KRISHAN, LD, [facility] Pager: [phone] Increments: 3 Dionicio Stevens MD 01/25/2018 1:23 PM Attested Attestation signed by Venkat Paniagua at 01/27/2018 9:29 AM I saw and evaluated the patient. Discussed with the resident and agree with resident's findings and plan as documented in the resident's note. Vascular Surgery Progress Note SERVICE DATE: 01/25/2018 Vascular AND Thoracic Surgery Service Pager: For questions or concerns Tue-Tue 6a-5p please page [phone]. After 5pm and on Weekends and Holidays, please page [phone] if in ICU or [phone] if on RNF. Subjective SUBJECTIVE: NAEON, Levo off, Propofol/Precedex off, Versed started, increased secretions Diet: DIET TUBE FEED - CONTIN (NO TRAY) DIET NPO Parenteral Nutrition - Adult Objective OBJECTIVE: Vitals: Temp (24hrs), Av.4 ?C (97.6 ?F), Min:36.1 ?C (97 ?F), Max:36.8 ?C (98.2 ?F) BP 132/57 Pulse 106 Temp 36.4 ?C (97.5 ?F) Resp 26 Ht 172.7 cm (5' 8) Wt 84 kg (185 lb 3 oz) SpO2 96% BMI 28.16 kg/m? O2 Therapy: Ventilator IANDO: Date 01/24/18 0700 - 01/25/1859 01/25/18 0700 - 01/26/18 0659 Shift 7295-2371 9764-0189 4158-7616 24 Hour Total 4053-9677 7482-8708 7188-9347 24 Hour Total I N T A K E PO 108 232 340 217 217 Tube Feed Intake (GI Feed/Drain 01/12/18 0100) 108 232 340 217 217 IV 506.7 138.3 645 73.6 73.6 NS 0.9% 159.9 29 188.9 Fentanyl Volume 80.8 57.9 138.7 39.8 39.8 Dexmedetomidine IV 100 100 NORepinephrine Volume 40 40 Midazolam Volume 26 51.4 77.4 33.8 33.8 Propofol IV 100 100 TPN/PPN 237.5 487.6 725.1 351.7 351.7 TPN 237.5 487.6 725.1 351.7 351.7 Irrigants 120 40 160 85 85 Irrigant/Flush Amount In (GI Feed/Drain 01/12/18 0100) 120 40 160 85 85 Shift Total 972.2 897.9 1870.1 727.3 727.3 O U T P U T Urine 150 50 200 0 0 Void (ml) 150 50 200 0 0 Drains 0 0 Negative Pressure: Output (mL) (Negative Pressure Wound Therapy 01/12/18 0749 Abdomen) 0 0 Tubes 0 20 0 20 220 220 Drain/Tube Output (Drain/Tube 01/19/18 1015 Midline Abdomen) 0 20 0 20 20 20 Output (GI Feed/Drain 01/12/18 0100) 200 200 # of BMs Number of BMs 0 x 0 x 0 x 0 x 0 x Dialysis 640 123 4194 2350 976 976 Dialysis Output (Ultrafiltration) 318 843 9952 2350 976 976 Shift Total 498 135 9241 2570 1196 1196 Weight (kg) 83.6 83.6 84 84 84 84 84 84 MEDICATIONS Current Facility-Administered Medications: ipratropium-albuterol 3 mL nebulizer solution (DUONEB) 3 mL INHALATION q 4 H budesonide 0.5 mg/2 mL 0.5 mg (PULMICORT) 0.5 mg INHALATION BID metoclopramide HCl 5 mg injection (REGLAN) 5 mg INTRAVENOUS q 6 H midazolam 100 mg in D5W 100 mL (VERSED) 1-10 mg/hr INTRAVENOUS CONTINUOUS docusate sodium oral liquid 100 mg/10 mL (DIOCTO,COLACE) 100 mg OROGASTRIC BID hydrocortisone sodium succinate (PF) 50 mg injection (Solu- CORTEF) 50 mg INTRAVENOUS q 12 H senna leaf extract 176 mg/5 mL 528 mg 15 mL OROGASTRIC BID carboxymethylcellulose sodium 1-2 Drop (CELLUVISC) 1-2 Drop BOTH EYES PRN polyvinyl alcohol-povidone 1.4-0.6 % 1 Drop (REFRESH) 1 Drop BOTH EYES QID PRN heparin 1,000 unit/mL 4,000 Units injection 4,000 Units INTRAVENOUS 3 Times weekly with dialysis heparin 5,000 Units injection 5,000 Units SUBCUTANEOUS q 12 H NaCl 0.9% 1,000 mL iv bolus 1,000 mL INTRAVENOUS PRN DIALYSIS prismaSOL BGK 4 K / 2.5 mEq Ca/Liter 5,000 mL 5,000 mL HEMODIALYSIS continuous (no dispense) prismaSOL BGK 4 K / 2.5 mEq Ca/Liter 5,000 mL 5,000 mL HEMODIALYSIS continuous (no dispense) prismaSOL BGK 4 K / 2.5 mEq Ca/Liter 5,000 mL 5,000 mL HEMODIALYSIS continuous (no dispense) dextrose 40 % 15 g 15 g ORAL PRN Or glucagon 1 mg injection (GLUCAGEN) 1 mg INTRAMUSCULAR PRN Or dextrose 50% in water 25 mL syringe 12.5 g INTRAVENOUS PRN magnesium sulfate 1 g in D5W 100 mL 1 g INTRAVENOUS PRN magnesium sulfate in water 2 g in sterile water 50 ml 2 g INTRAVENOUS PRN fentaNYL 20 mcg/mL iv infusion in NaCl 0.9% 100 mL 0-200 mcg/hr INTRAVENOUS CONTINUOUS pantoprazole 40 mg injection (PROTONIX) 40 mg INTRAVENOUS DAILY (6 AM) NORepinephrine 16 mg in D5W 250 mL (LEVOPHED) 0-30 mcg/min INTRAVENOUS CONTINUOUS Chlorhexidine Gluconate 0.12 % 15 mL (PERIDEX) 15 mL ORAL q 12 H Labs: Recent Labs 01/25/18 0425 01/24/18 2230 01/24/18 1820 01/24/18 0420 01/23/18 1020 01/23/18 0435 NA 139 -- -- -- 141 -- -- 139 K 4.2 -- -- -- 4.5 -- -- 5.0 CHLOR 107 -- -- -- 106 -- -- 106 CO2 20* -- -- -- 23 -- -- 22 BUN 58* -- -- -- 57* -- -- 54* CREAT 1.68* -- -- -- 1.80* -- -- 1.75* GLUC 147* -- -- -- 189* -- -- 234* ANION 16 -- -- -- 17* -- -- 16 CA 7.4* -- -- -- 7.2* -- -- 7.4* MG 2.6 -- -- -- 2.7* -- -- 2.8* P 2.9 -- -- -- 3.5 -- -- 4.7 ALB -- -- -- -- 1.3* -- -- 1.4* AST -- -- -- -- 132* -- -- 127* ALT -- -- -- -- 103* -- -- 87* ALKPHOS -- -- -- -- 297* -- -- 344* TBILI -- -- -- -- 6.3* -- -- 7.2* WBC 15.78* -- 16.37* -- 13.44* < > -- 15.80* HB 10.4* -- 10.4* < > 7.1* < > -- 8.0* HCT 31.7* -- 31.9* -- 21.8* < > -- 24.0* PLT 145 -- 157 -- 141 < > -- 130* INR -- -- -- -- 1.00 -- 0.93 -- PH 7.466* 7.443 7.420 < > 7.418 < > -- 7.399 PCO2 31.4* 30.2* 33.6* < > 35.1* < > -- 35.3* PO2 78.4* 77.4* 97.6* < > 173.6* < > -- 204.9* BE -1.0 -3.2 -2.5 < > -2.1 < > -- -3.1 < > = values in this interval not displayed. Exam: GENERAL: No distress NEURO: Sedated, not following commands HEENT: normocephalic, atraumatic, pupils reactive, +icterus LUNGS: Unlabored breathing O2 Therapy: Ventilator CARDIAC: Regular rate and rhythm as above ABDOMEN: Soft, non-tender, non-distended, VAC and retention sutures intact EXTREMITIES: MAK, No deformities, palpable pulses SKIN: Skin texture, turgor normal, No rashes or lesions, +jaundice ASSESSMENT AND PLAN: Active Hospital Problems Diagnosis Date Noted - Ruptured abdominal aortic aneurysm (AAA) ([facility]) 01/12/2018 - Obesity, Class I, BMI 30-34.9 01/16/2018 - Encephalopathy 01/13/2018 - DIC (disseminated intravascular coagulation) ([facility]) 01/12/2018 - Hemorrhagic shock ([facility]) 01/12/2018 - Acute respiratory failure ([facility]) 01/12/2018 - Cardiac arrest ([facility]) 01/12/2018 - Hypernatremia 01/12/2018 - Hypokalemia 01/12/2018 - Hypomagnesemia 01/12/2018 - Hypophosphatemia 01/12/2018 - Hyperchloremia 01/12/2018 - AAA (abdominal aortic aneurysm, ruptured) ([facility]) 01/12/2018 Overview Note: Added automatically from request for surgery [id number] 77 year old male with Ruptured AAA s/p Emergent Repair, takeback washout, repair of serosal tears x2, on 01/12, hemorrhagic shock, acute resp failure with pulm edema, TERENCE, SVT, s/p Third Look Laparotomy and?washout on 01/14, fourth look, washout, vac change on 01/16, Partial fascial closure on 01/19 ? - Vent mgmt per MICU - Advance TFs to goal as tolerated, wean TPN - Acute blood loss and dilutional anemia and thrombocytopenia - monitor, transfuse prn - TERENCE -->?CVVHD per?Nephro, diurese as tolerates - CXR w bilateral opacities - SpCx pending--> consider empiric Abx for HCAP per MICU - cont scrotal support - Cont WV --> wound care following for VAC changes - Hyperbilirubinemia and Transaminitis --> trend LFTs, Abd US WNL - Solucortef 50mg q8h per MICU - Leukocytosis - reactive and steroid related, afebrile, monitor - Trach/PEG Tuesday ?? Assessment and plan discussed with attending: Dr. Paniagua SIGNATURE: Dionicio Stevens MD PATIENT NAME: Naveen Akins DATE: January 25, 2018 TIME: 1:04 PM Vascular AND Thoracic Surgery Service Pager: For questions or concerns Tue-Tue 6a-5p please page [phone]. After 5pm and on Weekends and Holidays, please page [phone] if in ICU or [phone] if on RNF. Lorrie Bo RN, RN 01/25/2018 1:26 PM Signed CARE MANAGEMENT PROGRESS NOTE SERVICE DATE: 01/25/2018 SERVICE TIME: 1:18 PM LOS: 13 days FREEDOM OF CHOICE GIVEN: Yes ltac choice list discussed and declined list Preference: Select Needs Prior to Discharge: To Be Determined Lengthy discussion in waiting area with and two sons Gilbert and Manjit and dght Ruth. Has other dght not present. Discussed consult to ENT for pursuit of trach (informed by nsg and packing room worker) which they seem agreeable to. Anticipate ltach level of care so discussed with them and there has been referral made by ICU. Much emotional support given. Pt currently not ready or stable for Ltach but did make referral and to follow. Pt would not need precert. They currently are leaving in hands of God and wish to speak with physicians especially want to talk with neurology to make informed decision. Discussed with nsg will ntf Neurology family request discussion with them. SIGNATURE: Lorrie Bo RN PATIENT NAME: Naveen Akins DATE: January 25, 2018 TIME: 1:17 PM PAGER/CONTACT #: [phone] Paulo Lovelace APRN.MAINTENANCE TEAM MEMBER 01/25/2018 4:08 PM Signed MICU - PROGRESS NOTE SERVICE DATE: 01/25/2018 SERVICE TIME: 3:48 PM Admission Date: 01/12/2018 AGE: [age] year old LOS: 13 days Subjective REASON FOR ICU ADMISSION: Respiratory Failure Objective PROBLEMS: ACTIVE PROBLEM LIST Gallstone Pancreatitis Ruptured Abdominal Aortic Aneurysm (Aaa) (Hcc) Dic (Disseminated Intravascular Coagulation) (Hcc) Hemorrhagic Shock (Hcc) Acute Respiratory Failure (Hcc) Cardiac Arrest (Hcc) Hypernatremia Hypokalemia Hypomagnesemia Hypophosphatemia Hyperchloremia Encephalopathy Aaa (Abdominal Aortic Aneurysm, Ruptured) (Hcc) Obesity, Class I, Bmi 30-34.9 PAST MEDICAL HISTORY Diagnosis Date - DIC (disseminated intravascular coagulation) (HCC) 01/12/2018 PAST SURGICAL HISTORY Procedure Laterality Date - LAP CHOLECYSTECT/CHOLANGIOGRAPHY 05-28-09 - REPAIR UMBILICAL HER N,5+Y/O,REDUC 05-28-09 Social History Marital status: Spouse name: Shelly Years of education: 11 Number of children: 4 Occupational History 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 BP 132/57 Pulse 110 Temp (Src) 98.1 (Axillary) Resp 38 Ht 5' 8 (1.73m) Wt 185 lb 3 oz (84.0kg) SpO2 92% BMI 28.16 kg/(m2). Temp (24hrs), Av.4 ?C (97.6 ?F), Min:36.1 ?C (97 ?F), Max:36.8 ?C (98.2 ?F) NET FLUID BALANCE Intake/Output Summary (Last 24 hours) at 01/25/18 1548 Last data filed at 01/25/18 1300 Gross per 24 hour Intake 2597.4 ml Output 3173 ml Net -575.6 ml MEDICATIONS Current Facility-Administered Medications: ipratropium-albuterol 3 mL nebulizer solution (DUONEB) 3 mL INHALATION q 4 H budesonide 0.5 mg/2 mL 0.5 mg (PULMICORT) 0.5 mg INHALATION BID metoclopramide HCl 5 mg injection (REGLAN) 5 mg INTRAVENOUS q 6 H Parenteral Nutrition - Adult INTRAVENOUS ONCE TPN (1800 START) midazolam 100 mg in D5W 100 mL (VERSED) 1-10 mg/hr INTRAVENOUS CONTINUOUS docusate sodium oral liquid 100 mg/10 mL (DIOCTO,COLACE) 100 mg OROGASTRIC BID hydrocortisone sodium succinate (PF) 50 mg injection (Solu- CORTEF) 50 mg INTRAVENOUS q 12 H senna leaf extract 176 mg/5 mL 528 mg 15 mL OROGASTRIC BID carboxymethylcellulose sodium 1-2 Drop (CELLUVISC) 1-2 Drop BOTH EYES PRN polyvinyl alcohol-povidone 1.4-0.6 % 1 Drop (REFRESH) 1 Drop BOTH EYES QID PRN heparin 1,000 unit/mL 4,000 Units injection 4,000 Units INTRAVENOUS 3 Times weekly with dialysis heparin 5,000 Units injection 5,000 Units SUBCUTANEOUS q 12 H NaCl 0.9% 1,000 mL iv bolus 1,000 mL INTRAVENOUS PRN DIALYSIS prismaSOL BGK 4 K / 2.5 mEq Ca/Liter 5,000 mL 5,000 mL HEMODIALYSIS continuous (no dispense) prismaSOL BGK 4 K / 2.5 mEq Ca/Liter 5,000 mL 5,000 mL HEMODIALYSIS continuous (no dispense) prismaSOL BGK 4 K / 2.5 mEq Ca/Liter 5,000 mL 5,000 mL HEMODIALYSIS continuous (no dispense) dextrose 40 % 15 g 15 g ORAL PRN Or glucagon 1 mg injection (GLUCAGEN) 1 mg INTRAMUSCULAR PRN Or dextrose 50% in water 25 mL syringe 12.5 g INTRAVENOUS PRN magnesium sulfate 1 g in D5W 100 mL 1 g INTRAVENOUS PRN magnesium sulfate in water 2 g in sterile water 50 ml 2 g INTRAVENOUS PRN fentaNYL 20 mcg/mL iv infusion in NaCl 0.9% 100 mL 0-200 mcg/hr INTRAVENOUS CONTINUOUS pantoprazole 40 mg injection (PROTONIX) 40 mg INTRAVENOUS DAILY (6 AM) NORepinephrine 16 mg in D5W 250 mL (LEVOPHED) 0-30 mcg/min INTRAVENOUS CONTINUOUS Chlorhexidine Gluconate 0.12 % 15 mL (PERIDEX) 15 mL ORAL q 12 H Lines, Drains, and Airways Line Arterial Line 01/19/18 0840 Arterial Line Right Radial 6 days Central Line Quadruple Lumen 01/19/18 1056 Right Neck 6 days Dialysis / Apheresis Double Lumen 01/24/18 1400 Non-tunneled Right Groin 1 day Drain GI Feed/Drain 01/12/18 0100 13 days Drain/Tube 01/19/18 1015 Midline Abdomen 6 days Airway Airway Endotracheal Tube 01/12/18 1138 13 days PHYSICAL EXAM PERFORMED: Cardiovascular: Regular rhythm Respiratory: Reduced breath sounds bilat %FIO2 Min: 40 Max: 50 Abdomen: Distended Extremities: Edema- Yes Generalized edema Neurologic: Unresponsive -off sedation Respiratory/Nursing Documentation: O2 Therapy: Ventilator (01/25/18 113) Invasive Ventilator Mode: Pressure Regulated Volume Control (01/25/181138) Set Ventilator Respiratory Rate (BPM): 18 (01/25/18 113) Total Respiratory Rate (BPM): 38 (01/25/18 113) Tidal Volume Set (mL): 480 (01/25/18 113) Exhaled Tidal Volume (mL): 470 (01/25/18 113) Minute Volume (L): 15.9 (01/25/18 113) Peak Inspiratory Pressure (cm H2O): 22 (01/25/18 113) PEEP/CPAP (cm H2O): 5 (01/25/18 113) HEMODYNAMIC DATA: Reviewed NUTRITION: Enteral Feeds: TPN NPO DATA: Diagnostic tests reviewed for today's visit, films/specimens were personally reviewed by me: Most recent labs and imaging results. LABS: Recent Labs 01/25/18 0425 01/24/18 0420 01/23/18 1020 WBC 15.78* < > 13.44* < > -- RBC 3.68* < > 2.48* < > -- HB 10.4* < > 7.1* < > -- HCT 31.7* < > 21.8* < > -- MCV 86.1 < > 87.9 < > -- PLT 145 < > 141 < > -- GLUC 147* -- 189* -- -- BUN 58* -- 57* -- -- CREAT 1.68* -- 1.80* -- -- NA 139 -- 141 -- -- K 4.2 -- 4.5 -- -- CHLOR 107 -- 106 -- -- CO2 20* -- 23 -- -- TPROT -- -- 5.0* -- -- ALB -- -- 1.3* -- -- CA 7.4* -- 7.2* -- -- ALKPHOS -- -- 297* -- -- TBILI -- -- 6.3* -- -- AST -- -- 132* -- -- ALT -- -- 103* -- -- PTSEC -- -- 10.6 -- 10.0 APTT -- -- -- -- 23.9 INR -- -- 1.00 -- 0.93 MG 2.6 -- 2.7* -- -- < > = values in this interval not displayed. ABG: Recent Labs 01/25/18 0425 01/24/18 2230 01/24/18 1820 PH 7.466* 7.443 7.420 PO2 78.4* 77.4* 97.6* PCO2 31.4* 30.2* 33.6* Assessment/Plan IMPRESSION: Critical Care Documentation: The patient has the following organ/system impairment(s): ? 1.Acute hypoxic respiratory failure/ARDS/Bilat pleuaral effusions-remains intubated on 40% FIO2 2. Ruptured AAA ?Sp repair-Wound closed vac in place draining sm amt serosanguinous drainage 3.SP cardiac arrest 4.Shock-Levophed support at 6 mcg 5. Pt is nonresponsive-even to noxious stimuli-Encephalopathy 6.Thrombocytopenia-platelet 145,000 7.Nutritional support-TPN 8.Sinus tachycardia-SVT resolved 9.TERENCE on CKD-on CRRT 10. Fentanyl drip at 150mcg/kh for pain control 11. Suspect ileus-emesis of bile colored gastric fluid this morning-OG has been to suction and 500ml gastric fluid has drained-tube feedings have been discontinued-he did have a bowel movement 12. Acute blood loss anemia This patient has a high probability of sudden, clinically significant deterioration, which requires the highest level of physician preparedness to intervene urgently. I managed/supervised life or organ supporting interventions that required frequent physician assessment. I devoted my full attention to the direct care of this patient for the amount of time indicated below. Time I spent with family or surrogate(s) is included only if the patient was incapable of providing the necessary information or participating in medical decision making. Time devoted to teaching is not included. Discussed with staff/patient/family Time spent providing critical care services: 40 minutes excluding procedures. SIGNATURE: Paulo Lovelace APRN.MAINTENANCE TEAM MEMBER PATIENT NAME: Naveen Aknis DATE: January 25, 2018 TIME: 3:48 PM Jocelynn Chance MD 01/25/2018 9:38 PM Signed Was paged by nursing staff regarding patient's NG output. She states that she flushed his NGT and it began dumping a brown, blood tinged bilious fluid. The NGT was placed to continuous suction for a short period of time as the patient had backup around the NGT as well. To this point the patient has put out 850 cc from the NGT and the output has slowed. The NG is back to LIWS and the output is a blood tinged bilious appearing fluid. A CBC is pending and his protonix has been increased to 40 mg BID. His abdomen remains soft, non- distended with retention sutures in place. Jocelynn Chance MD General Surgery Chief Resident January 25, 2018 9:37 PM [facility] #: Pager: [phone] Chaplain Barbosa Chaplain 01/25/2018 10:21 PM Signed SPIRITUALCARE Spiritual Care Visit- Brief Note Name: Naveen Akins Date: January 25, 2018 Notes: While making rounds retail center receptionist visited Pt's family in 3rd floor WR. Family stated they are praying for a miracle. Envelope Stamping Machine Operator provided spiritual comfort and supportive presence. Per families request retail center receptionist offered bedside prayers with Pt's RN present. Pt's RN indicated the Pt's condition is critical. Envelope Stamping Machine Operator provided SC/supprt and encouragement for Pt's RN. Envelope Stamping Machine Operator later returned and presented Pt's family with a Prayer [place]. Pt's family grateful for spiritual care/support, chaplains availability and prayer blanket. Envelope Stamping Machine Operator to remain available. Envelope Stamping Machine Operator Signature: Chaplain Familia To contact the Spiritual Care Department: Please call [phone] or Page the On-Call Envelope Stamping Machine Operator at pager [phone] Thank you for the opportunity to be of service. This is an electronically created document. IF PRINTED, PLEASE DO NOT REMOVE FROM THE CHART OR MODIFY PRINTED COPY. Elder Granda MD 01/25/2018 11:46 PM Signed GNR from [facility] [place] in 01/24. Sputum is thick. Completed a prolonged course of IV ABx. Will start Zosyn. Elder Granda MD 01/25/2018 11:46 PM Dionicio Stevens MD 01/26/2018 11:21 AM Attested Attestation signed by Venkat Paniagua at 01/27/2018 9:18 AM Patient was seen and evaluated he appears relatively stable with the exception of some large gastric residuals and therefore the tube feeds been placed on hold. He is on the OR schedule for a trach and PEG tomorrow. Hopefully once these are done we can dramatically decrease the amount of sedation and pain medication the patient is getting and see if there is any neurologic function that we can identify that is purposeful. Vascular Surgery Progress Note SERVICE DATE: 01/26/2018 Vascular AND Thoracic Surgery Service Pager: For questions or concerns Mon-Fri 6a-5p please page [phone]. After 5pm and on Weekends and Holidays, please page [phone] if in ICU or [phone] if on RNF. Subjective SUBJECTIVE: Increased secretions and TF residuals, started Zosyn, back on Levo for Hypotension Diet: DIET NPO Parenteral Nutrition - Adult Objective OBJECTIVE: Vitals: Temp (24hrs), Av.6 ?C (97.8 ?F), Min:35.5 ?C (95.9 ?F), Max:37.6 ?C (99.7 ?F) BP 132/57 Pulse 103 Temp 37.3 ?C (99.1 ?F) (Axillary) Resp 19 Ht 172.7 cm (5' 8) Wt 84 kg (185 lb 3 oz) SpO2 99% BMI 28.16 kg/m? O2 Therapy: Ventilator IANDO: Date 01/25/18699 - 01/26/1865801/26/18699 - 01/27/18 0659 Shift 6565-7723 8489-2679 9626-8675 24 Hour Total 6870-1670 0576-7884 6557-6897 24 Hour Total I N T A K E PO 217 217 Tube Feed Intake (GI Feed/Drain 01/12/18 010) 217 217 IV 115.6 175.3 219.9 510.8 Zosyn IV 50 50 Fentanyl Volume 53.8 59.4 46.6 159.8 NORepinephrine Volume 16 91.9 90.4 198.3 Midazolam Volume 45.8 24 32.9 102.7 TPN/PPN 476.7 453.6 389 1319.3 TPN 476.7 453.6 389 1319.3 Irrigants 85 20 105 Irrigant/Flush Amount In (GI Feed/Drain 01/12/18 0100) 85 20 105 Shift Total 894.3 648.9 608.9 2152.1 O U T P U T Urine 0 0 75 75 Void (ml) 0 0 0 0 Tube Output ([REMOVED] Indwelling Urinary Catheter 01/26/18 0445 Straight Cath 01/26/18 0450) 75 75 Drains 0 0 Negative Pressure: Output (mL) (Negative Pressure Wound Therapy 01/12/18 0749 Abdomen) 0 0 Tubes 220 8952 053 0992 Drain/Tube Output (Drain/Tube 01/19/18 1015 Midline Abdomen) 20 10 0 30 Output (GI Feed/Drain 01/12/18 0100) 200 8387 056 0338 # of BMs Number of BMs 0 x 2 x 0 x 2 x Dialysis 1309 124 517 2522 Dialysis Output (Ultrafiltration) 1309 711 374 2038 Shift Total 1529 9185 302 5257 Weight (kg) 84 84 84 84 84 84 84 84 MEDICATIONS Current Facility-Administered Medications: calcium gluconate 4 g in NaCl 0.9% 250 mL 4 g INTRAVENOUS ONCE ipratropium-albuterol 3 mL nebulizer solution (DUONEB) 3 mL INHALATION q 4 H budesonide 0.5 mg/2 mL 0.5 mg (PULMICORT) 0.5 mg INHALATION BID hydrocortisone sodium succinate (PF) 25 mg injection (Solu- CORTEF) 25 mg INTRAVENOUS q 12 H metoclopramide HCl 5 mg injection (REGLAN) 5 mg INTRAVENOUS q 6 H Parenteral Nutrition - Adult INTRAVENOUS ONCE TPN (1800 START) pantoprazole 40 mg injection (PROTONIX) 40 mg INTRAVENOUS BID AC (0600/1600) piperacillin-tazobactam 3.375 g in dextrose (iso-osmotic) 50 mL (ZOSYN) 3.375 g INTRAVENOUS q 6 H midazolam 100 mg in D5W 100 mL (VERSED) 1-10 mg/hr INTRAVENOUS CONTINUOUS docusate sodium oral liquid 100 mg/10 mL (DIOCTO,COLACE) 100 mg OROGASTRIC BID senna leaf extract 176 mg/5 mL 528 mg 15 mL OROGASTRIC BID carboxymethylcellulose sodium 1-2 Drop (CELLUVISC) 1-2 Drop BOTH EYES PRN polyvinyl alcohol-povidone 1.4-0.6 % 1 Drop (REFRESH) 1 Drop BOTH EYES QID PRN heparin 1,000 unit/mL 4,000 Units injection 4,000 Units INTRAVENOUS 3 Times weekly with dialysis heparin 5,000 Units injection 5,000 Units SUBCUTANEOUS q 12 H NaCl 0.9% 1,000 mL iv bolus 1,000 mL INTRAVENOUS PRN DIALYSIS prismaSOL BGK 4 K / 2.5 mEq Ca/Liter 5,000 mL 5,000 mL HEMODIALYSIS continuous (no dispense) prismaSOL BGK 4 K / 2.5 mEq Ca/Liter 5,000 mL 5,000 mL HEMODIALYSIS continuous (no dispense) prismaSOL BGK 4 K / 2.5 mEq Ca/Liter 5,000 mL 5,000 mL HEMODIALYSIS continuous (no dispense) dextrose 40 % 15 g 15 g ORAL PRN Or glucagon 1 mg injection (GLUCAGEN) 1 mg INTRAMUSCULAR PRN Or dextrose 50% in water 25 mL syringe 12.5 g INTRAVENOUS PRN magnesium sulfate 1 g in D5W 100 mL 1 g INTRAVENOUS PRN magnesium sulfate in water 2 g in sterile water 50 ml 2 g INTRAVENOUS PRN fentaNYL 20 mcg/mL iv infusion in NaCl 0.9% 100 mL 0-200 mcg/hr INTRAVENOUS CONTINUOUS NORepinephrine 16 mg in D5W 250 mL (LEVOPHED) 0-30 mcg/min INTRAVENOUS CONTINUOUS Chlorhexidine Gluconate 0.12 % 15 mL (PERIDEX) 15 mL ORAL q 12 H Labs: Recent Labs 01/26/18 0415 01/25/18 2235 01/25/18 1600 01/25/18 0425 01/24/18 0420 01/23/18 1020 NA 137 137 < > -- 139 -- 141 < > -- K 4.5 4.7 < > -- 4.2 -- 4.5 < > -- CHLOR 105 106 < > -- 107 -- 106 < > -- CO2 24 21 < > -- 20* -- 23 < > -- BUN 48* 47* < > -- 58* -- 57* < > -- CREAT 1.57* 1.63* < > -- 1.68* -- 1.80* < > -- GLUC 213* 175* < > -- 147* -- 189* < > -- ANION 13 -- -- -- 16 -- 17* < > -- CA 7.8* 7.8* < > -- 7.4* -- 7.2* < > -- MG 2.6 2.5 < > -- 2.6 -- 2.7* < > -- P 3.1 2.8 < > -- 2.9 -- 3.5 < > -- ALB 1.3* 1.4* < > -- -- -- 1.3* -- -- AST 87* -- -- -- -- -- 132* -- -- ALT 89* -- -- -- -- -- 103* -- -- ALKPHOS 234* -- -- -- -- -- 297* -- -- TBILI 7.5* -- -- -- -- -- 6.3* -- -- WBC 13.71* 16.24* -- -- 15.78* < > 13.44* < > -- HB 11.3* 11.7* -- -- 10.4* < > 7.1* < > -- HCT 34.3* 35.2* -- -- 31.7* < > 21.8* < > -- PLT 135* 155 -- -- 145 < > 141 < > -- INR -- -- -- -- -- -- 1.00 -- 0.93 PH -- -- -- 7.478* 7.466* < > 7.418 < > -- PCO2 -- -- -- 28.3* 31.4* < > 35.1* < > -- PO2 -- -- -- 79.2* 78.4* < > 173.6* < > -- BE -- -- -- -2.2 -1.0 < > -2.1 < > -- < > = values in this interval not displayed. Exam: GENERAL: No distress NEURO: Sedated, not following commands HEENT: normocephalic, atraumatic, pupils reactive, +icterus LUNGS: Unlabored breathing O2 Therapy: Ventilator CARDIAC: Regular rate and rhythm as above, Levo @ 16 ABDOMEN: Soft, non-tender, non-distended, VAC and retention sutures intact EXTREMITIES: MAK, No deformities, palpable pulses SKIN: Skin texture, turgor normal, No rashes or lesions, +jaundice ASSESSMENT AND PLAN: Active Hospital Problems Diagnosis Date Noted - Ruptured abdominal aortic aneurysm (AAA) ([facility]) 01/12/2018 - Obesity, Class I, BMI 30-34.9 01/16/2018 - Encephalopathy 01/13/2018 - DIC (disseminated intravascular coagulation) ([facility]) 01/12/2018 - Hemorrhagic shock ([facility]) 01/12/2018 - Acute respiratory failure ([facility]) 01/12/2018 - Cardiac arrest ([facility]) 01/12/2018 - Hypernatremia 01/12/2018 - Hypokalemia 01/12/2018 - Hypomagnesemia 01/12/2018 - Hypophosphatemia 01/12/2018 - Hyperchloremia 01/12/2018 - AAA (abdominal aortic aneurysm, ruptured) (HCC) 01/12/2018 Overview Note: Added automatically from request for surgery [id number] 77 year old male with Ruptured AAA s/p Emergent Repair, takeback washout, repair of serosal tears x2, on 01/12, hemorrhagic shock, acute resp failure with pulm edema, TERENCE, SVT, s/p Third Look Laparotomy and?washout on 01/14, fourth look, washout, vac change on 01/16, Partial fascial closure on 01/19 ? - Vent mgmt per MICU - NPO/TPN, TFs on hold - Wean Levo as tolerated - Acute blood loss and dilutional anemia and thrombocytopenia - monitor, stable - TERENCE -->?CVVHD per?Nephro, diurese as tolerates - CXR w bilateral opacities - SpCx pending, Smear +GNB --> Zosyn per MICU - cont scrotal support - Cont WV --> wound care following for VAC changes - Hyperbilirubinemia and Transaminitis -->?trending down, Abd US WNL - Solucortef 50mg q8h per MICU - Leukocytosis - reactive, steroid related, and possibly 2/2 PNA - Trach/PEG Tuesday with Dr. Cox and Dr. Menezes ?? Assessment and plan discussed with attending: Dr. Paniagua SIGNATURE: Dionicio Stevens MD PATIENT NAME: Naveen Akins DATE: January 26, 2018 TIME: 6:27 AM Vascular AND Thoracic Surgery Service Pager: For questions or concerns Tue-Tue 6a-5p please page [phone]. After 5pm and on Weekends and Holidays, please page [phone] if in ICU or [phone] if on RNF. Dorcas Palafox MD 01/26/2018 9:48 AM Signed MICU - PROGRESS NOTE SERVICE DATE: 01/26/2018 SERVICE TIME: 9:27 AM Admission Date: 01/12/2018 AGE: [age] year old LOS: 14 days Subjective REASON FOR ICU ADMISSION: Pneumonia, Renal Failure, Respiratory Failure, Sepsis, Shock, S/P Surgery and Encephalopathy. Unresponsive to name, touch, and noxious stimuli. Sedated on 150mcg/hr Fentanyl and 6mg/hr Versed. Vomited tube feeds yesterday with high residuals noted. VENT: PRVC-18 Vt-480ml P-5 FiO2 40%. Ve--9-11l/min. SaO2 100%. Copious thick brown secretions noted per ETT Objective VITAL SIGNS (last 24hrs min/max): Temp Av.6 ?C (97.8 ?F) Min: 35.5 ?C (95.9 ?F) Max: 37.6 ?C (99.7 ?F) Pulse Av.9 Min: 96 Max: 120 Arterial BP 1 Min: 77/45 Max: 136/69 Cuff No Data Recorded Pain Score: 0/10 Vital signs reviewed. BP 132/57 Pulse 100 Temp (Src) 97.9 (Axillary) Resp 18 Ht 5' 8 (1.73m) Wt 185 lb 3 oz (84.0kg) SpO2 99% BMI 28.16 kg/(m2). Temp (24hrs), Av.6 ?C (97.8 ?F), Min:35.5 ?C (95.9 ?F), Max:37.6 ?C (99.7 ?F) NET FLUID BALANCE Intake/Output Summary (Last 24 hours) at 01/26/18 0927 Last data filed at 01/26/18 0745 Gross per 24 hour Intake 2059.7 ml Output 3644 ml Net -1584.3 ml MEDICATIONS Current Facility-Administered Medications: calcium gluconate 4 g in NaCl 0.9% 250 mL 4 g INTRAVENOUS ONCE ipratropium-albuterol 3 mL nebulizer solution (DUONEB) 3 mL INHALATION q 4 H budesonide 0.5 mg/2 mL 0.5 mg (PULMICORT) 0.5 mg INHALATION BID hydrocortisone sodium succinate (PF) 25 mg injection (Solu- CORTEF) 25 mg INTRAVENOUS q 12 H metoclopramide HCl 5 mg injection (REGLAN) 5 mg INTRAVENOUS q 6 H Parenteral Nutrition - Adult INTRAVENOUS ONCE TPN (1800 START) pantoprazole 40 mg injection (PROTONIX) 40 mg INTRAVENOUS BID AC (0600/1600) piperacillin-tazobactam 3.375 g in dextrose (iso-osmotic) 50 mL (ZOSYN) 3.375 g INTRAVENOUS q 6 H midazolam 100 mg in D5W 100 mL (VERSED) 1-10 mg/hr INTRAVENOUS CONTINUOUS docusate sodium oral liquid 100 mg/10 mL (DIOCTO,COLACE) 100 mg OROGASTRIC BID senna leaf extract 176 mg/5 mL 528 mg 15 mL OROGASTRIC BID carboxymethylcellulose sodium 1-2 Drop (CELLUVISC) 1-2 Drop BOTH EYES PRN polyvinyl alcohol-povidone 1.4-0.6 % 1 Drop (REFRESH) 1 Drop BOTH EYES QID PRN heparin 1,000 unit/mL 4,000 Units injection 4,000 Units INTRAVENOUS 3 Times weekly with dialysis heparin 5,000 Units injection 5,000 Units SUBCUTANEOUS q 12 H NaCl 0.9% 1,000 mL iv bolus 1,000 mL INTRAVENOUS PRN DIALYSIS prismaSOL BGK 4 K / 2.5 mEq Ca/Liter 5,000 mL 5,000 mL HEMODIALYSIS continuous (no dispense) prismaSOL BGK 4 K / 2.5 mEq Ca/Liter 5,000 mL 5,000 mL HEMODIALYSIS continuous (no dispense) prismaSOL BGK 4 K / 2.5 mEq Ca/Liter 5,000 mL 5,000 mL HEMODIALYSIS continuous (no dispense) dextrose 40 % 15 g 15 g ORAL PRN Or glucagon 1 mg injection (GLUCAGEN) 1 mg INTRAMUSCULAR PRN Or dextrose 50% in water 25 mL syringe 12.5 g INTRAVENOUS PRN magnesium sulfate 1 g in D5W 100 mL 1 g INTRAVENOUS PRN magnesium sulfate in water 2 g in sterile water 50 ml 2 g INTRAVENOUS PRN fentaNYL 20 mcg/mL iv infusion in NaCl 0.9% 100 mL 0-200 mcg/hr INTRAVENOUS CONTINUOUS NORepinephrine 16 mg in D5W 250 mL (LEVOPHED) 0-30 mcg/min INTRAVENOUS CONTINUOUS Chlorhexidine Gluconate 0.12 % 15 mL (PERIDEX) 15 mL ORAL q 12 H Lines, Drains, and Airways Line Arterial Line 01/19/18 0840 Arterial Line Right Radial 7 days Central Line Quadruple Lumen 01/19/18 1056 Right Neck 6 days Dialysis / Apheresis Double Lumen 01/24/18 1400 Non-tunneled Right Groin 1 day Drain GI Feed/Drain 01/12/18 0100 14 days Drain/Tube 01/19/18 1015 Midline Abdomen 6 days Airway Airway Endotracheal Tube 01/12/18 1138 13 days PHYSICAL EXAM PERFORMED: Calm age-appropriate acutely ill- looking elderly WM. HEENT: +Orotracheal tube. +Orogastric tube Oral Mucosa: Dry mucous membranes Feeding Tube: Yes. Orogastric tube Eyes: Pupils unequal- OS 3mm OD 2mm and both reactive Neck: Unremarkable; No adenopathy or JVD Cardiovascular: Regular tachycardia. Sinus tach on monitor. Respiratory: Coarse BSs equal bilaterally. %FIO2 Min: 40 Max: 40 Abdomen: Soft, Nontender and Occasional BSs. Extremities: Edema- Yes and trace-1+ pitting LE edema Peripheral Pulses- Present all extremities Capillary Refill- less than 3 seconds Skin: Abnormalities- No Neurologic: Sedated Respiratory/Nursing Documentation: O2 Therapy: Ventilator (01/26/18834) Invasive Ventilator Mode: Pressure Regulated Volume Control (01/26/18834) Set Ventilator Respiratory Rate (BPM): 18 (01/26/18834) Total Respiratory Rate (BPM): 22 (01/26/18834) Tidal Volume Set (mL): 480 (01/26/18834) Exhaled Tidal Volume (mL): 707 (01/26/18834) Minute Volume (L): 10.7 (01/26/18834) Peak Inspiratory Pressure (cm H2O): 17 (01/26/18834) PEEP/CPAP (cm H2O): 5 (01/26/18834) HEMODYNAMIC DATA: NUTRITION: Enteral Feeds: No NPO DATA: Diagnostic tests reviewed for today's visit: Most recent labs and imaging results. LABS: Recent Labs 01/26/18 0415 01/24/18 0420 01/23/18 1020 WBC 13.71* < > 13.44* < > -- RBC 3.94* < > 2.48* < > -- HB 11.3* < > 7.1* < > -- HCT 34.3* < > 21.8* < > -- MCV 87.1 < > 87.9 < > -- PLT 135* < > 141 < > -- GLUC 213* < > 189* -- -- BUN 48* < > 57* -- -- CREAT 1.57* < > 1.80* -- -- NA 137 < > 141 -- -- K 4.5 < > 4.5 -- -- CHLOR 105 < > 106 -- -- CO2 24 < > 23 -- -- TPROT 5.3* -- 5.0* < > -- ALB 1.3* < > 1.3* -- -- CA 7.8* < > 7.2* -- -- ALKPHOS 234* -- 297* < > -- TBILI 7.5* -- 6.3* < > -- AST 87* -- 132* < > -- ALT 89* -- 103* < > -- PTSEC -- -- 10.6 -- 10.0 APTT -- -- -- -- 23.9 INR -- -- 1.00 -- 0.93 MG 2.6 < > 2.7* -- -- < > = values in this interval not displayed. ABG: Recent Labs 01/25/18 1600 01/25/18 0425 01/24/18 2230 PH 7.478* 7.466* 7.443 PO2 79.2* 78.4* 77.4* PCO2 28.3* 31.4* 30.2* CULTURES: Sputum: Positive- 01/24: Many Klebsiella/Enterobacter grp/Many WBCs CXR FINDINGS: Infiltrate Right and medial lower lobe and generalized edema much improved bilaterally. OTHER IMAGIN/22: FINDINGS/ impression: NG tube tip is in the distal stomach. Numerous surgical clips throughout the abdomen. Bilateral femoral line catheters. Mild degree of nonspecific gaseous distention of the colon and small bowel There is no abnormal calcifications. The bony structures appear intact. Assessment/Plan PROBLEMS: ACTIVE PROBLEM LIST Gallstone Pancreatitis Ruptured Abdominal Aortic Aneurysm (Aaa) (Hcc) Dic (Disseminated Intravascular Coagulation) (Hcc) Hemorrhagic Shock (Hcc) Acute Respiratory Failure (Hcc) Cardiac Arrest (Hcc) Hypernatremia Hypokalemia Hypomagnesemia Hypophosphatemia Hyperchloremia Encephalopathy Aaa (Abdominal Aortic Aneurysm, Ruptured) (Hcc) Obesity, Class I, Bmi 30-34.9 1. VDRF secondary to bilateral infiltrates and encephalopathy--former much improved. RR and vent mechanics better today. 2. Medial RLL infiltrate on CXR--?Aspiration pneumonia. ?Klebsiella/Enterobacter 3. Recurrent shock back on Levophed. WBC trending down. 4. S/P cardiac arrest with anoxic/metabolic encephalopathy 5. S/P ruptured AAA on admission with multiple re-look exploratory laps for clean-out procedures. 6. Ileus/Gastroparesis--back on TPN 7. TERENCE on CVVH ongoing 8. Mild thrombocytopenis--135 9. Severe hypoalbuminemia PLANS FOR TODAY: CRITICAL CARE PLAN: Antibiotics , Bronchodilators , Vasopressors, Ventilatory support and Zosyn added overnight. Recommend trach tube if family wishes to proceed. Reglan added Soon retry trickle tube feeds. Neurology to discuss prognosis with family. Hydrocortisone dropped to 25mg q12h Continue Versed and Fentanyl for sedation. This patient has a high probability of sudden, clinically significant deterioration, which requires the highest level of physician preparedness to intervene urgently. I managed/supervised life or organ supporting interventions that required frequent physician assessment. I devoted my full attention to the direct care of this patient for the amount of time indicated below. Time I spent with family or surrogate(s) is included only if the patient was incapable of providing the necessary information or participating in medical decision making. Time devoted to teaching is not included. Patient Updated Yes Family Updated No Discussed with Staff Yes Time spent providing critical care services: 40 minutes excluding procedures. SIGNATURE: Dorcas Palafox MD PATIENT NAME: Naveen Akins DATE: January 26, 2018 TIME: 9:27 AM PAGER/CONTACT #: [phone] Chaplain Serna Chaplain 01/26/2018 10:39 AM Signed [facility] Spiritual Care Visit- Brief Note Name: Naveen Akins Date: January 26, 2018 Notes: Checked in w/pt's fam in 3d floor [place]--they told me he will be receiving a trach tomorrow. We spoke about prayer; about things being in God's hands, and that God will do what is best for him. Spoke also with his caregivers when I went to offer prayer at his bedside--conversation about compassion and healing. [place] will continue to follow this patient and fam as appropriate. Envelope Stamping Machine Operator Signature: Chaplain Daphne To contact the Spiritual Care Department: Please call [phone] or Page the On-Call Envelope Stamping Machine Operator at pager [phone] Thank you for the opportunity to be of service. This is an electronically created document. IF PRINTED, PLEASE DO NOT REMOVE FROM THE CHART OR MODIFY PRINTED COPY. Paulo Lovelace APRN.MAINTENANCE TEAM MEMBER 01/26/2018 10:47 AM Signed MICU - PROGRESS NOTE SERVICE DATE: 01/26/2018 SERVICE TIME: 10:41 AM Admission Date: 01/12/2018 AGE: [id number] year old LOS: 14 days Subjective REASON FOR ICU ADMISSION: Respiratory Failure and Shock Objective PROBLEMS: ACTIVE PROBLEM LIST Gallstone Pancreatitis Ruptured Abdominal Aortic Aneurysm (Aaa) (Hcc) Dic (Disseminated Intravascular Coagulation) (Hcc) Hemorrhagic Shock (Hcc) Acute Respiratory Failure (Hcc) Cardiac Arrest (Hcc) Hypernatremia Hypokalemia Hypomagnesemia Hypophosphatemia Hyperchloremia Encephalopathy Aaa (Abdominal Aortic Aneurysm, Ruptured) (Hcc) Obesity, Class I, Bmi 30-34.9 PAST MEDICAL HISTORY Diagnosis Date - DIC (disseminated intravascular coagulation) (HCC) 01/12/2018 PAST SURGICAL HISTORY Procedure Laterality Date - LAP CHOLECYSTECT/CHOLANGIOGRAPHY 05-28-09 - REPAIR UMBILICAL NATAN,5+Y/O,REDUC 05-28-09 Social History Marital status: Spouse name: Shelly Years of education: 11 Number of children: 4 Occupational History 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 BP 132/57 Pulse 112 Temp (Src) 97.9 (Axillary) Resp 18 Ht 5' 8 (1.73m) Wt 185 lb 3 oz (84.0kg) SpO2 99% BMI 28.16 kg/(m2). Temp (24hrs), Av.6 ?C (97.9 ?F), Min:35.5 ?C (95.9 ?F), Max:37.6 ?C (99.7 ?F) NET FLUID BALANCE Intake/Output Summary (Last 24 hours) at 01/26/18 1041 Last data filed at 01/26/18 0745 Gross per 24 hour Intake 1816.7 ml Output 3487 ml Net -1670.3 ml MEDICATIONS Current Facility-Administered Medications: calcium gluconate 4 g in NaCl 0.9% 250 mL 4 g INTRAVENOUS ONCE ipratropium-albuterol 3 mL nebulizer solution (DUONEB) 3 mL INHALATION q 4 H budesonide 0.5 mg/2 mL 0.5 mg (PULMICORT) 0.5 mg INHALATION BID hydrocortisone sodium succinate (PF) 25 mg injection (Solu- CORTEF) 25 mg INTRAVENOUS q 12 H metoclopramide HCl 5 mg injection (REGLAN) 5 mg INTRAVENOUS q 6 H Parenteral Nutrition - Adult INTRAVENOUS ONCE TPN (1800 START) pantoprazole 40 mg injection (PROTONIX) 40 mg INTRAVENOUS BID AC (0600/1600) piperacillin-tazobactam 3.375 g in dextrose (iso-osmotic) 50 mL (ZOSYN) 3.375 g INTRAVENOUS q 6 H midazolam 100 mg in D5W 100 mL (VERSED) 1-10 mg/hr INTRAVENOUS CONTINUOUS docusate sodium oral liquid 100 mg/10 mL (DIOCTO,COLACE) 100 mg OROGASTRIC BID senna leaf extract 176 mg/5 mL 528 mg 15 mL OROGASTRIC BID carboxymethylcellulose sodium 1-2 Drop (CELLUVISC) 1-2 Drop BOTH EYES PRN polyvinyl alcohol-povidone 1.4-0.6 % 1 Drop (REFRESH) 1 Drop BOTH EYES QID PRN heparin 1,000 unit/mL 4,000 Units injection 4,000 Units INTRAVENOUS 3 Times weekly with dialysis heparin 5,000 Units injection 5,000 Units SUBCUTANEOUS q 12 H NaCl 0.9% 1,000 mL iv bolus 1,000 mL INTRAVENOUS PRN DIALYSIS prismaSOL BGK 4 K / 2.5 mEq Ca/Liter 5,000 mL 5,000 mL HEMODIALYSIS continuous (no dispense) prismaSOL BGK 4 K / 2.5 mEq Ca/Liter 5,000 mL 5,000 mL HEMODIALYSIS continuous (no dispense) prismaSOL BGK 4 K / 2.5 mEq Ca/Liter 5,000 mL 5,000 mL HEMODIALYSIS continuous (no dispense) dextrose 40 % 15 g 15 g ORAL PRN Or glucagon 1 mg injection (GLUCAGEN) 1 mg INTRAMUSCULAR PRN Or dextrose 50% in water 25 mL syringe 12.5 g INTRAVENOUS PRN magnesium sulfate 1 g in D5W 100 mL 1 g INTRAVENOUS PRN magnesium sulfate in water 2 g in sterile water 50 ml 2 g INTRAVENOUS PRN fentaNYL 20 mcg/mL iv infusion in NaCl 0.9% 100 mL 0-200 mcg/hr INTRAVENOUS CONTINUOUS NORepinephrine 16 mg in D5W 250 mL (LEVOPHED) 0-30 mcg/min INTRAVENOUS CONTINUOUS Chlorhexidine Gluconate 0.12 % 15 mL (PERIDEX) 15 mL ORAL q 12 H Lines, Drains, and Airways Line Arterial Line 01/19/18 0840 Arterial Line Right Radial 7 days Central Line Quadruple Lumen 01/19/18 1056 Right Neck 6 days Dialysis / Apheresis Double Lumen 01/24/18 1400 Non-tunneled Right Groin 1 day Drain GI Feed/Drain 01/12/18 0100 14 days Drain/Tube 01/19/18 1015 Midline Abdomen 7 days Airway Airway Endotracheal Tube 01/12/18 1138 13 days PHYSICAL EXAM PERFORMED: Cardiovascular: Irregular rhythm Respiratory: Reduced breath sounds bilat %FIO2 Min: 40 Max: 40 Abdomen: Positive bowel sounds Extremities: Edema- Yes Generalized edema Neurologic: Unresponsive Respiratory/Nursing Documentation: O2 Therapy: Ventilator (01/26/18834) Invasive Ventilator Mode: Pressure Regulated Volume Control (01/26/18834) Set Ventilator Respiratory Rate (BPM): 18 (01/26/18834) Total Respiratory Rate (BPM): 22 (01/26/18834) Tidal Volume Set (mL): 480 (01/26/18834) Exhaled Tidal Volume (mL): 707 (01/26/18834) Minute Volume (L): 10.7 (01/26/18834) Peak Inspiratory Pressure (cm H2O): 17 (01/26/18834) PEEP/CPAP (cm H2O): 5 (01/26/18834) HEMODYNAMIC DATA: Reviewed NUTRITION: Enteral Feeds: TPN DATA: Diagnostic tests reviewed for today's visit, films/specimens were personally reviewed by me: Most recent labs and imaging results. LABS: Recent Labs 01/26/18 0415 01/24/18 0420 WBC 13.71* < > 13.44* RBC 3.94* < > 2.48* HB 11.3* < > 7.1* HCT 34.3* < > 21.8* MCV 87.1 < > 87.9 PLT 135* < > 141 GLUC 213* < > 189* BUN 48* < > 57* CREAT 1.57* < > 1.80* NA 137 < > 141 K 4.5 < > 4.5 CHLOR 105 < > 106 CO2 24 < > 23 TPROT 5.3* -- 5.0* ALB 1.3* < > 1.3* CA 7.8* < > 7.2* ALKPHOS 234* -- 297* TBILI 7.5* -- 6.3* AST 87* -- 132* ALT 89* -- 103* PTSEC -- -- 10.6 INR -- -- 1.00 MG 2.6 < > 2.7* < > = values in this interval not displayed. ABG: Recent Labs 01/25/18 1600 01/25/18 0425 01/24/18 2230 PH 7.478* 7.466* 7.443 PO2 79.2* 78.4* 77.4* PCO2 28.3* 31.4* 30.2* Assessment/Plan IMPRESSION: Critical Care Documentation: The patient has the following organ/system impairment(s): ?? 1.Acute hypoxic respiratory failure/ARDS/Bilat pleuaral effusions-remains intubated on 40% FIO2 2. Ruptured AAA ?Sp repair-Wound closed vac in place draining sm amt serosanguinous drainage 3.SP cardiac arrest 4.Shock-Levophed support at 25mcg 5. Pt is nonresponsive-even to noxious stimuli-Encephalopathy 6.Thrombocytopenia-platelet 135,000 7.Nutritional support-TPN 8.Sinus tachycardia-SVT resolved-frequent PACs this AM 9.TERENCE on CKD-on CRRT 10. Fentanyl drip at 150mcg/kh for pain control 11. Ileus/gastroparesis 12. Acute blood loss anemia 13.Hyperlipidemia improving This patient has a high probability of sudden, clinically significant deterioration, which requires the highest level of physician preparedness to intervene urgently. I managed/supervised life or organ supporting interventions that required frequent physician assessment. I devoted my full attention to the direct care of this patient for the amount of time indicated below. Time I spent with family or surrogate(s) is included only if the patient was incapable of providing the necessary information or participating in medical decision making. Time devoted to teaching is not included. Discussed with staff/patient/family Time spent providing critical care services: 40 minutes excluding procedures. SIGNATURE: Paulo Lovelace APRN.CNS PATIENT NAME: Naveen Akins DATE: January 26, 2018 TIME: 10:41 AM Tracey De La Fuente RN, RN 01/26/2018 11:19 AM Signed CRRT circuit changed due to clotting filter. Access via right femoral temp HD cath. PBP, dialysate and post rep. At 800ml/hr. BFR at 150ml/min. Report to Jose GARDNER. Viry Mosher, RD, LD, RD 01/26/2018 11:53 AM Attested Attestation signed by Perla Dudley at 01/27/2018 7:32 AM Discussed with the RD and agree with RD's findings and plan as documented in the RD's note. Cont TPN for now Perla Dudley MD NUTRITION SUPPORT TEAM TOPIC: NUTRITION SUPPORT TEAM PROGRESS NOTE PATIENT NAME: Naveen Akins DATE OF : 1940 DATE: 01/26/2018 Nutritional Status: NO MALNUTRITION IDENTIFIED per RD 01/16/18 ? ? NUTRITION CARE PLAN: ? Problem, Etiology and Signs/Symptoms: Altered GI function related to potential ileus?as evidenced by lack of bowel sounds, distended abdomen, and hypotension. ? NST consult 01/16/18 for TPN support ? Interval History: LOS d 14, tolerating TPN, TF off, plans for PEG 01/27 noted, NPO/NGT, Assessment: 77 year old male with Ruptured AAA s/p Emergent Repair, takeback washout, repair of serosal tears x2, on 01/12, hemorrhagic shock, acute resp failure with pulm edema, TERENCE, SVT s/p Third Look Laparotomy and?washout on 01/14, fourth look, washout, vac change on 01/16 ?remains on vent, continues on CRRT 01/19 ?X lap, wash out, partial fascial closure, wound vac change 01/20 pressors weaned off Remains on diprivan gtt 01/20 rt thoracentesis- breathing better 01/21 limited abdominal x lap and closure 01/22 levo at pm restarted 01/23 neuro consult, ? plans for trach/Peg 01/24 new femoral HD line per nephrology, working good 01/25 + emesis 01/26 started on Zosyn for GNR ( sputum) , TF off ? Tmax: 37.4 WBC: 13.71 Edema: 3+ UE, LE Lines: Art Line, Quad lumen, HD cath, all WNL Lytes: reviewed PAB: last level 18.6, not drawn today WT: ?84.0 kg ( down from 104 kg) GFR: 42.95 Trig : improved to 352, off diprivan and lipids in TPN ? Recommendations: TPN renewed: increased dextrose and insulin ? TPN script: 1.5?L /24 hrs providing 1760 calories ( 21?kcals/kg ABW 84?kg) and 90 gms pro ( ~ 1.0 gms/kg ABW 84?kg) per day ? CHO:insulin ratio is ?9.1:1?, with 412 gms CHO in TPN , 45 units in TPN bag ? Resume TF as able Collaborated with Dr Dudley and orders written. Vitals: Temperature Max in 24 hours: Temp (24hrs), Av.7 ?C (98 ?F), Min:35.5 ?C (95.9 ?F), Max:37.6 ?C (99.7 ?F) Current Vital Signs: BP 132/57 Pulse 112 Temp 36.6 ?C (97.9 ?F) (Axillary) Resp 18 Ht 172.7 cm (5' 8) Wt 84 kg (185 lb 3 oz) SpO2 99% BMI 28.16 kg/m? Current Weight: Weight: 84 kg (185 lb 3 oz) Intake AND Output: Intake/Output Summary (Last 24 hours) at 01/26/18 1144 Last data filed at 01/26/18 1100 Gross per 24 hour Intake 1770.7 ml Output 3810 ml Net -2039.3 ml Laboratory Data: Recent Labs 01/26/18 0415 01/25/18 2235 01/25/18 1753 01/24/18 0420 NA 137 137 137 < > 141 K 4.5 4.7 4.7 < > 4.5 CHLOR 105 106 106 < > 106 CO2 24 21 21 < > 23 CREAT 1.57* 1.63* 1.56* < > 1.80* BUN 48* 47* 53* < > 57* GLUC 213* 175* 171* < > 189* P 3.1 2.8 3.0 < > 3.5 TPROT 5.3* -- -- -- 5.0* ALB 1.3* 1.4* 1.5* -- 1.3* MG 2.6 2.5 2.6 < > 2.7* CA 7.8* 7.8* 7.7* < > 7.2* < > = values in this interval not displayed. Recent Labs 01/23/18 1655 PREALB 18.6* Viry Mosher RD, LD, [facility] Pager: [phone] Increments: 3 Troy Godoy MD 01/26/2018 12:55 PM Signed Subjective. No events new 01/26/18 1200 01/26/18 1215 01/26/18 1230 01/26/18 1250 BP: Pulse: (!) 129 118 102 115 Resp: 20 20 Temp: TempSrc: SpO2: 99% 99% 99% 100% Weight: Height: No pallor No icterus No JVD Heart - S1 S2 Lungs - clear Abdomen - surgical wounds + LE - no edema, No cyanosis No rash CMP: Glucose 175 01/26/2018 BUN 49 01/26/2018 Creatinine 1.55 01/26/2018 Sodium 139 01/26/2018 Potassium 4.2 01/26/2018 Chloride 104 01/26/2018 CO2 24 01/26/2018 Protein, Total 5.3 01/26/2018 Albumin 1.2 01/26/2018 Calcium 7.9 01/26/2018 Alkaline Phosphatase 234 01/26/2018 Bilirubin, Total 7.5 01/26/2018 AST 87 01/26/2018 ALT 89 01/26/2018 Hemoglobin (g/dL) Date Value 11/14/2017 15.0 HGB (g/dL) Date Value 01/26/2018 11.3 Hematocrit (%) Date Value 01/26/2018 34.3 WBC (thou/cmm) Date Value 01/26/2018 13.71 Platelet Count (thou/cmm) Date Value 01/26/2018 135 Assessment/ Plan 1. Acute kidney injury on chronic kidney disease stage 3. Baseline SCr is 1.36 mg/dL on 11/14/17. CKD is likely due to nephrosclerosis related to PAD. TERENCE is 2/2 ischemic ATN from shock. On pressors still. Pt may be making more urine (difficult to quantify since he is incontinent). CVVHDF is progressing well. Effluent dose is adequate. Cath flow is good with the new femoral catheter. Continue UF rate at 50 mL/hr since BP is stable. If pressor requirements increase will run even. ? 2. Shock. Improved. Initially due to hemorrhagic shock-massive blood loss from ruptured AAA +/- adrenal insufficiency. Continue hydrocortisone. ? 5. Ruptured AAA. s/p repair 01/12/18. Management as per vascular surgery. ? 6. Acute hypoxic respiratory failure. Ventilator dependent. Vent management as per ICU. O>I with CRRT UF. ? 7. Encephalopathy. Neuro evaluation in progress Chaplain Serna Chaplain 01/26/2018 2:01 PM Signed [facility] Spiritual Care Visit- Brief Note Name: Naveen Akins Date: January 26, 2018 Notes: Checked in w/pt's fam after they met w/Dr Castillo--they so appreciated the time he took with them, as well as his compassionate approach and empathy--they are now processing what they've learned and, I gathered, working out a plan moving forward. They asked that we continue to pray for them--I assured them we would--they know we are here if they need us. Envelope Stamping Machine Operator Signature: Chaplain Daphne To contact the Spiritual Care Department: Please call [phone] or Page the On-Call Envelope Stamping Machine Operator at pager [phone] Thank you for the opportunity to be of service. This is an electronically created document. IF PRINTED, PLEASE DO NOT REMOVE FROM THE CHART OR MODIFY PRINTED COPY. Traci Oconnell, RN, RN 01/26/2018 7:28 PM Signed CRRT circuit changed All orders resumed bfr 200 Lines reversed A:V V:A Hemosafe devices on x 2 Report to Icu nurse Will monitor closely Chaplain Saenz Chaplain 01/26/2018 8:28 PM Signed [facility] Spiritual Care Visit- Brief Note Name: Naveen Akins Date: January 26, 2018 Notes: Pre-Surg visit attempted; staff working with pt; no family in room Envelope Stamping Machine Operator Signature: Chaplain Dany To contact the Spiritual Care Department: Please call [phone] or Page the On-Call Envelope Stamping Machine Operator at pager [phone] Thank you for the opportunity to be of service. This is an electronically created document. IF PRINTED, PLEASE DO NOT REMOVE FROM THE CHART OR MODIFY PRINTED COPY. Dionicio Stevens MD 01/27/2018 8:32 AM Signed Vascular Surgery Progress Note SERVICE DATE: 01/27/2018 Vascular AND Thoracic Surgery Service Pager: For questions or concerns Mon-Fri 6a-5p please page [phone]. After 5pm and on Weekends and Holidays, please page [phone] if in ICU or [phone] if on RNF. Subjective SUBJECTIVE: NAEON Diet: DIET NPO Parenteral Nutrition - Adult Objective OBJECTIVE: Vitals: Temp (24hrs), Av.8 ?C (98.2 ?F), Min:36.1 ?C (97 ?F), Max:37.3 ?C (99.1 ?F) BP 132/57 Pulse 106 Temp 36.2 ?C (97.2 ?F) (Axillary) Resp 15 Ht 172.7 cm (5' 8) Wt 82.2 kg (181 lb 3.5 oz) SpO2 100% BMI 27.55 kg/m? O2 Therapy: Ventilator IANDO: Date 01/26/18699 - 01/27/1865801/27/18699 - 01/28/18 0659 Shift 1718-7198 2653-5685 2411-6730 24 Hour Total 5921-9044 8954-2198 2226-1154 24 Hour Total I N T A K E PO 0 0 Tube Feed Intake (GI Feed/Drain 01/12/18 0100) 0 0 IV 75.4 347.9 263.4 686.7 NS 0.9% 64.1 9 73.1 Zosyn IV 50 50 100 Fentanyl Volume 6.7 56.7 60 123.4 NORepinephrine Volume 13.4 181.9 102.3 297.6 Midazolam Volume 5.3 45.2 42.1 92.6 TPN/PPN 56 265.4 499.7 821.1 TPN 56 265.4 499.7 821.1 Irrigants 60 60 Irrigant/Flush Amount In (GI Feed/Drain 01/12/18 0100) 60 60 Shift Total 131.4 613.3 823.1 1567.8 O U T P U T Urine 0 0 50 50 Void (ml) 0 0 50 50 Emesis 0 0 Emesis (ml) 0 0 Drains 0 0 Negative Pressure: Output (mL) (Negative Pressure Wound Therapy 01/12/18 0749 Abdomen) 0 0 Tubes 100 350 435 885 Drain/Tube Output (Drain/Tube 01/19/18 1015 Midline Abdomen) 0 25 10 35 Output (GI Feed/Drain 01/12/18 0100) 100 325 425 850 # of BMs Number of BMs 0 x 0 x 0 x 0 x Dialysis 976 141 486 4493 Dialysis Output (Ultrafiltration) 976 155 074 5381 Shift Total 1076 124 998 2681 Weight (kg) 84 84 82.2 82.2 82.2 82.2 82.2 82.2 MEDICATIONS Current Facility-Administered Medications: Parenteral Nutrition - Adult INTRAVENOUS ONCE TPN (1800 START) ipratropium-albuterol 3 mL nebulizer solution (DUONEB) 3 mL INHALATION q 4 H budesonide 0.5 mg/2 mL 0.5 mg (PULMICORT) 0.5 mg INHALATION BID hydrocortisone sodium succinate (PF) 25 mg injection (Solu- CORTEF) 25 mg INTRAVENOUS q 12 H metoclopramide HCl 5 mg injection (REGLAN) 5 mg INTRAVENOUS q 6 H pantoprazole 40 mg injection (PROTONIX) 40 mg INTRAVENOUS BID AC (0600/1600) piperacillin-tazobactam 3.375 g in dextrose (iso-osmotic) 50 mL (ZOSYN) 3.375 g INTRAVENOUS q 6 H midazolam 100 mg in D5W 100 mL (VERSED) 1-10 mg/hr INTRAVENOUS CONTINUOUS docusate sodium oral liquid 100 mg/10 mL (DIOCTO,COLACE) 100 mg OROGASTRIC BID senna leaf extract 176 mg/5 mL 528 mg 15 mL OROGASTRIC BID carboxymethylcellulose sodium 1-2 Drop (CELLUVISC) 1-2 Drop BOTH EYES PRN polyvinyl alcohol-povidone 1.4-0.6 % 1 Drop (REFRESH) 1 Drop BOTH EYES QID PRN heparin 1,000 unit/mL 4,000 Units injection 4,000 Units INTRAVENOUS 3 Times weekly with dialysis heparin 5,000 Units injection 5,000 Units SUBCUTANEOUS q 12 H NaCl 0.9% 1,000 mL iv bolus 1,000 mL INTRAVENOUS PRN DIALYSIS prismaSOL BGK 4 K / 2.5 mEq Ca/Liter 5,000 mL 5,000 mL HEMODIALYSIS continuous (no dispense) prismaSOL BGK 4 K / 2.5 mEq Ca/Liter 5,000 mL 5,000 mL HEMODIALYSIS continuous (no dispense) prismaSOL BGK 4 K / 2.5 mEq Ca/Liter 5,000 mL 5,000 mL HEMODIALYSIS continuous (no dispense) dextrose 40 % 15 g 15 g ORAL PRN Or glucagon 1 mg injection (GLUCAGEN) 1 mg INTRAMUSCULAR PRN Or dextrose 50% in water 25 mL syringe 12.5 g INTRAVENOUS PRN magnesium sulfate 1 g in D5W 100 mL 1 g INTRAVENOUS PRN magnesium sulfate in water 2 g in sterile water 50 ml 2 g INTRAVENOUS PRN fentaNYL 20 mcg/mL iv infusion in NaCl 0.9% 100 mL 0-200 mcg/hr INTRAVENOUS CONTINUOUS NORepinephrine 16 mg in D5W 250 mL (LEVOPHED) 0-30 mcg/min INTRAVENOUS CONTINUOUS Chlorhexidine Gluconate 0.12 % 15 mL (PERIDEX) 15 mL ORAL q 12 H Labs: Recent Labs 01/27/18 0530 01/26/18 2345 01/26/18 1800 01/26/18 0415 01/25/18 1600 01/25/18 0425 NA -- 137 138 < > 137 < > -- 139 K -- 4.6 4.4 < > 4.5 < > -- 4.2 CHLOR -- 106 104 < > 105 < > -- 107 CO2 -- 25 23 < > 24 < > -- 20* BUN -- 42* 45* < > 48* < > -- 58* CREAT -- 1.41* 1.49* < > 1.57* < > -- 1.68* GLUC -- 156* 219* < > 213* < > -- 147* ANION -- -- -- -- 13 -- -- 16 CA -- 7.4* 7.6* < > 7.8* < > -- 7.4* MG -- 2.4 2.4 < > 2.6 < > -- 2.6 P -- 3.0 3.1 < > 3.1 < > -- 2.9 ALB -- 1.1* 1.2* < > 1.3* < > -- -- AST -- -- -- -- 87* -- -- -- ALT -- -- -- -- 89* -- -- -- ALKPHOS -- -- -- -- 234* -- -- -- TBILI -- -- -- -- 7.5* -- -- -- WBC 8.91 -- -- -- 13.71* < > -- 15.78* HB 9.4* -- -- -- 11.3* < > -- 10.4* HCT 29.4* -- -- -- 34.3* < > -- 31.7* PLT 119* -- -- -- 135* < > -- 145 PH -- -- -- -- -- -- 7.478* 7.466* PCO2 -- -- -- -- -- -- 28.3* 31.4* PO2 -- -- -- -- -- -- 79.2* 78.4* BE -- -- -- -- -- -- -2.2 -1.0 < > = values in this interval not displayed. Exam: GENERAL: No distress NEURO: Sedated, not following commands HEENT: normocephalic, atraumatic, pupils reactive, +icterus LUNGS: Unlabored breathing O2 Therapy: Ventilator CARDIAC: AFib, Levo @ 11 ABDOMEN: Soft, non-tender, non-distended, VAC and retention sutures intact EXTREMITIES: MAK, No deformities, palpable pulses SKIN: Skin texture, turgor normal, No rashes or lesions, +jaundice ASSESSMENT AND PLAN: Active Hospital Problems Diagnosis Date Noted - Ruptured abdominal aortic aneurysm (AAA) ([facility]) 01/12/2018 - Obesity, Class I, BMI 30-34.9 01/16/2018 - Encephalopathy 01/13/2018 - DIC (disseminated intravascular coagulation) ([facility]) 01/12/2018 - Hemorrhagic shock ([facility]) 01/12/2018 - Acute respiratory failure ([facility]) 01/12/2018 - Cardiac arrest ([facility]) 01/12/2018 - Hypernatremia 01/12/2018 - Hypokalemia 01/12/2018 - Hypomagnesemia 01/12/2018 - Hypophosphatemia 01/12/2018 - Hyperchloremia 01/12/2018 - AAA (abdominal aortic aneurysm, ruptured) ([facility]) 01/12/2018 Overview Note: Added automatically from request for surgery [id number] 77 year old male with Ruptured AAA s/p Emergent Repair, takeback washout, repair of serosal tears x2, on 01/12, hemorrhagic shock, acute resp failure with pulm edema, TERENCE, SVT, s/p Third Look Laparotomy and?washout on 01/14, fourth look, washout, vac change on 01/16, Partial fascial closure on 01/19 ? - Vent mgmt per MICU - NPO/TPN, TFs on hold - Wean Levo as tolerated - Acute blood loss and dilutional anemia and thrombocytopenia - monitor, stable - TERENCE -->?CVVHD per?Nephro, diurese as tolerates - CXR w bilateral opacities - SpCx pending, Smear +GNB --> Zosyn per MICU - cont scrotal support - Cont WV --> wound care following for VAC changes - Hyperbilirubinemia and Transaminitis -->?trending down, Abd US WNL - Solucortef 50mg q8h per MICU - Leukocytosis - reactive, steroid related, and possibly 2/2 PNA - Trach/PEG today with Dr. Cox and Dr. Menezes - T+C for pRBCs and Plt --> on hold for OR ?? Assessment and plan discussed with attending: Dr. Paniagua SIGNATURE: Dionicio Stevens MD PATIENT NAME: Naveen Akins DATE: January 27, 2018 TIME: 6:28 AM Vascular AND Thoracic Surgery Service Pager: For questions or concerns Tue-Tue 6a- please page [phone]. After 5pm and on Weekends and Holidays, please page [phone] if in ICU or [phone] if on RNF. Hermelinda Ferrell MD 01/27/2018 7:38 AM Cosign Needed Emergency General Surgery Progress Note SERVICE DATE: 01/27/2018 Emergency General Surgery Service Pager: For questions or concerns Tue-Tue 6a-5p please page [phone]. After 5pm and on Weekends and Holidays, please page [phone] if in ICU or [phone] if on RNF. SUBJECTIVE: Weaned down on pressors. OG putting out about 50 cc/hr. Minimal outpt from wound vac. Otherwise NAEON. Tolerating diet DIET NPO Parenteral Nutrition - Adult OBJECTIVE: Vitals: Temp (24hrs), Av.8 ?C (98.2 ?F), Min:36.1 ?C (97 ?F), Max:37.3 ?C (99.1 ?F) BP 132/57 Pulse 106 Temp 36.2 ?C (97.2 ?F) (Axillary) Resp 15 Ht 172.7 cm (5' 8) Wt 82.2 kg (181 lb 3.5 oz) SpO2 100% BMI 27.55 kg/m? O2 Therapy: Ventilator IANDO: Date 01/26/18699 - 01/27/1865801/27/18699 - 01/28/18 0659 Shift 4809-5316 8661-7630 3150-6959 24 Hour Total 3970-0713 1077-9695 8079-1614 24 Hour Total I N T A K E PO 0 0 Tube Feed Intake (GI Feed/Drain 01/12/18 0100) 0 0 IV 75.4 347.9 263.4 686.7 NS 0.9% 64.1 9 73.1 Zosyn IV 50 50 100 Fentanyl Volume 6.7 56.7 60 123.4 NORepinephrine Volume 13.4 181.9 102.3 297.6 Midazolam Volume 5.3 45.2 42.1 92.6 TPN/PPN 56 265.4 499.7 821.1 TPN 56 265.4 499.7 821.1 Irrigants 60 60 Irrigant/Flush Amount In (GI Feed/Drain 01/12/18 0100) 60 60 Shift Total 131.4 613.3 823.1 1567.8 O U T P U T Urine 0 0 50 50 Void (ml) 0 0 50 50 Emesis 0 0 Emesis (ml) 0 0 Drains 0 0 Negative Pressure: Output (mL) (Negative Pressure Wound Therapy 01/12/18 0749 Abdomen) 0 0 Tubes 100 350 435 885 Drain/Tube Output (Drain/Tube 01/19/18 1015 Midline Abdomen) 0 25 10 35 Output (GI Feed/Drain 01/12/18 0100) 100 325 425 850 # of BMs Number of BMs 0 x 0 x 0 x 0 x Dialysis 976 891 103 4369 Dialysis Output (Ultrafiltration) 976 219 735 7951 Shift Total 1076 871 385 7953 Weight (kg) 84 84 82.2 82.2 82.2 82.2 82.2 82.2 MEDICATIONS Current Facility-Administered Medications: Parenteral Nutrition - Adult INTRAVENOUS ONCE TPN (1800 START) ipratropium-albuterol 3 mL nebulizer solution (DUONEB) 3 mL INHALATION q 4 H budesonide 0.5 mg/2 mL 0.5 mg (PULMICORT) 0.5 mg INHALATION BID hydrocortisone sodium succinate (PF) 25 mg injection (Solu- CORTEF) 25 mg INTRAVENOUS q 12 H metoclopramide HCl 5 mg injection (REGLAN) 5 mg INTRAVENOUS q 6 H pantoprazole 40 mg injection (PROTONIX) 40 mg INTRAVENOUS BID AC (0600/1600) piperacillin-tazobactam 3.375 g in dextrose (iso-osmotic) 50 mL (ZOSYN) 3.375 g INTRAVENOUS q 6 H midazolam 100 mg in D5W 100 mL (VERSED) 1-10 mg/hr INTRAVENOUS CONTINUOUS docusate sodium oral liquid 100 mg/10 mL (DIOCTO,COLACE) 100 mg OROGASTRIC BID senna leaf extract 176 mg/5 mL 528 mg 15 mL OROGASTRIC BID carboxymethylcellulose sodium 1-2 Drop (CELLUVISC) 1-2 Drop BOTH EYES PRN polyvinyl alcohol-povidone 1.4-0.6 % 1 Drop (REFRESH) 1 Drop BOTH EYES QID PRN heparin 1,000 unit/mL 4,000 Units injection 4,000 Units INTRAVENOUS 3 Times weekly with dialysis heparin 5,000 Units injection 5,000 Units SUBCUTANEOUS q 12 H NaCl 0.9% 1,000 mL iv bolus 1,000 mL INTRAVENOUS PRN DIALYSIS prismaSOL BGK 4 K / 2.5 mEq Ca/Liter 5,000 mL 5,000 mL HEMODIALYSIS continuous (no dispense) prismaSOL BGK 4 K / 2.5 mEq Ca/Liter 5,000 mL 5,000 mL HEMODIALYSIS continuous (no dispense) prismaSOL BGK 4 K / 2.5 mEq Ca/Liter 5,000 mL 5,000 mL HEMODIALYSIS continuous (no dispense) dextrose 40 % 15 g 15 g ORAL PRN Or glucagon 1 mg injection (GLUCAGEN) 1 mg INTRAMUSCULAR PRN Or dextrose 50% in water 25 mL syringe 12.5 g INTRAVENOUS PRN magnesium sulfate 1 g in D5W 100 mL 1 g INTRAVENOUS PRN magnesium sulfate in water 2 g in sterile water 50 ml 2 g INTRAVENOUS PRN fentaNYL 20 mcg/mL iv infusion in NaCl 0.9% 100 mL 0-200 mcg/hr INTRAVENOUS CONTINUOUS NORepinephrine 16 mg in D5W 250 mL (LEVOPHED) 0-30 mcg/min INTRAVENOUS CONTINUOUS Chlorhexidine Gluconate 0.12 % 15 mL (PERIDEX) 15 mL ORAL q 12 H Labs: Recent Labs 01/27/18 0530 01/26/18 2345 01/26/18 0415 01/25/18 1600 01/25/18 0425 NA 139 137 < > 137 < > -- 139 K 4.1 4.6 < > 4.5 < > -- 4.2 CHLOR 105 106 < > 105 < > -- 107 CO2 27 25 < > 24 < > -- 20* BUN 42* 42* < > 48* < > -- 58* CREAT 1.42* 1.41* < > 1.57* < > -- 1.68* GLUC 158* 156* < > 213* < > -- 147* ANION -- -- -- 13 -- -- 16 CA 7.3* 7.4* < > 7.8* < > -- 7.4* MG 2.4 2.4 < > 2.6 < > -- 2.6 P 2.8 3.0 < > 3.1 < > -- 2.9 ALB 1.1* 1.1* < > 1.3* < > -- -- AST -- -- -- 87* -- -- -- ALT -- -- -- 89* -- -- -- ALKPHOS -- -- -- 234* -- -- -- TBILI -- -- -- 7.5* -- -- -- WBC 8.91 -- -- 13.71* < > -- 15.78* HB 9.4* -- -- 11.3* < > -- 10.4* HCT 29.4* -- -- 34.3* < > -- 31.7* PLT 119* -- -- 135* < > -- 145 PH -- -- -- -- -- 7.478* 7.466* PCO2 -- -- -- -- -- 28.3* 31.4* PO2 -- -- -- -- -- 79.2* 78.4* BE -- -- -- -- -- -2.2 -1.0 < > = values in this interval not displayed. Exam: NEURO: spontaneous eye opening HEENT: intuabted LUNGS: stable on vent CARDIAC: Regular rate and rhythm as above ABDOMEN: wound vac in place, abd firm ASSESSMENT AND PLAN: Active Hospital Problems Diagnosis Date Noted - Ruptured abdominal aortic aneurysm (AAA) ([facility]) 01/12/2018 - Obesity, Class I, BMI 30-34.9 01/16/2018 - Encephalopathy 01/13/2018 - DIC (disseminated intravascular coagulation) ([facility]) 01/12/2018 - Hemorrhagic shock ([facility]) 01/12/2018 - Acute respiratory failure ([facility]) 01/12/2018 - Cardiac arrest ([facility]) 01/12/2018 - Hypernatremia 01/12/2018 - Hypokalemia 01/12/2018 - Hypomagnesemia 01/12/2018 - Hypophosphatemia 01/12/2018 - Hyperchloremia 01/12/2018 - AAA (abdominal aortic aneurysm, ruptured) ([facility]) 01/12/2018 Overview Note: Added automatically from request for surgery [id number] 77 year old male with Ruptured AAA s/p Emergent Repair, takeback washout, repair of serosal tears x2, on 01/12, hemorrhagic shock, acute resp failure with pulm edema, TERENCE, SVT, s/p Third Look Laparotomy and?washout on 01/14, fourth look, washout, vac change on 01/16, Partial fascial closure on 01/19 - DIET NPO Parenteral Nutrition - Adult - OR today for trach/PEG - cont management per ICU SIGNATURE: Hermelinda Ferrell MD PATIENT NAME: Naveen Akins DATE: January 27, 2018 TIME: 7:27 AM Pager: see below Emergency General Surgery Service Pager: For questions or concerns Mon-Tue 6a-5p please page [phone]. After 5pm and on Weekends and Holidays, please page [phone] if in ICU or [phone] if on RNF. Abbi Mtz, RN, RN 01/27/2018 10:03 AM Signed WOUND CARE NURSE PROGRESS NOTE SERVICE DATE: 01/27/2018 SERVICE TIME: 939 REASON FOR VISIT: Wound TIME SPENT (minutes): 30 Patient seen today by Josseline Magana, [facility], and siva knot cutter. Wound vac dressing to midline abdomen changed. Applied 3 white, 1 black, 150mmHg, continuous. Applied single layer xeroform, gauze, and ABD to skin tears to periwound. Wound bed clean. Retention sutures intact. Plan to change wound vac dressing Tuesday01/30/18. Documentation from Wound Expert can be found in scanned documents. SIGNATURE: Abbi Mtz RN CWOCN PATIENT NAME: Naveen Akins DATE: January 27, 2018 TIME: 10:01 AM CONTACT#: [id number] Lupe Cheng RN, RN 01/27/2018 10:38 AM Signed CARE MANAGEMENT PROGRESS NOTE SERVICE DATE: 01/27/2018 SERVICE TIME: 10:34 AM LOS: 15 days FREEDOM OF CHOICE GIVEN: Financial Disclosure Provided The patient and/or family has been given the Provider List: Yes (LTACH choice list) Needs Prior to Discharge: Facility or Agency Choices;Accepting Facility;Discharge Transportation Chart reviewed. Spoke with patient's spouse Shelly and all of patient's children in the waiting area. OR today for trach/PEG. Lengthy discussion with patient's family on discharge planning. Anticipated LTACH level of care at discharge. Patient's family in agreement. LTACH choice list provided. Await choice. Will continue to follow clinical course for further DC planning needs. SIGNATURE: Lupe Cheng RN PATIENT NAME: Naveen Akins DATE: January 27, 2018 TIME: 10:34 AM PAGER/CONTACT #: [phone] Dorcas Palafox MD 01/27/2018 11:21 AM Signed MICU - PROGRESS NOTE SERVICE DATE: 01/27/2018 SERVICE TIME: 10:56 AM Admission Date: 01/12/2018 AGE: [age] year old LOS: 15 days Subjective REASON FOR ICU ADMISSION: Pneumonia, Renal Failure, Respiratory Failure, Sepsis, Shock, S/P Surgery and Encephalopathy. Sedated and unresponsive. Versed at 5mg/hr. Fentanyl 150mcg/hr. Remains on CVVH. VENT: PRVC-18 Vt-450 P-5 FIO2 40% with Ve-9l/min SaO2 98% Levophed at 14mcg/min Objective VITAL SIGNS (last 24hrs min/max): Temp Av.7 ?C (98.1 ?F) Min: 36.1 ?C (97 ?F) Max: 37.3 ?C (99.1 ?F) Pulse Av.7 Min: 82 Max: 129 Arterial BP 1 Min: 87/48 Max: 155/75 Cuff BP Min: 99/55 Max: 99/55 Pain Score: 0/10 Vital signs reviewed. BP 99/55 Pulse 100 Temp (Src) 97.5 (Axillary) Resp 18 Ht 5' 8 (1.73m) Wt 181 lb 3.5 oz (82.2kg) SpO2 98% BMI 27.56 kg/(m2). Temp (24hrs), Av.7 ?C (98.1 ?F), Min:36.1 ?C (97 ?F), Max:37.3 ?C (99.1 ?F) NET FLUID BALANCE Intake/Output Summary (Last 24 hours) at 01/27/18 1056 Last data filed at 01/27/18 0800 Gross per 24 hour Intake 1608.5 ml Output 2473 ml Net -864.5 ml MEDICATIONS Current Facility-Administered Medications: Parenteral Nutrition - Adult INTRAVENOUS ONCE TPN (1800 START) ipratropium-albuterol 3 mL nebulizer solution (DUONEB) 3 mL INHALATION q 4 H budesonide 0.5 mg/2 mL 0.5 mg (PULMICORT) 0.5 mg INHALATION BID hydrocortisone sodium succinate (PF) 25 mg injection (Solu- CORTEF) 25 mg INTRAVENOUS q 12 H metoclopramide HCl 5 mg injection (REGLAN) 5 mg INTRAVENOUS q 6 H pantoprazole 40 mg injection (PROTONIX) 40 mg INTRAVENOUS BID AC (0600/1600) piperacillin-tazobactam 3.375 g in dextrose (iso-osmotic) 50 mL (ZOSYN) 3.375 g INTRAVENOUS q 6 H midazolam 100 mg in D5W 100 mL (VERSED) 1-10 mg/hr INTRAVENOUS CONTINUOUS docusate sodium oral liquid 100 mg/10 mL (DIOCTO,COLACE) 100 mg OROGASTRIC BID senna leaf extract 176 mg/5 mL 528 mg 15 mL OROGASTRIC BID carboxymethylcellulose sodium 1-2 Drop (CELLUVISC) 1-2 Drop BOTH EYES PRN polyvinyl alcohol-povidone 1.4-0.6 % 1 Drop (REFRESH) 1 Drop BOTH EYES QID PRN heparin 1,000 unit/mL 4,000 Units injection 4,000 Units INTRAVENOUS 3 Times weekly with dialysis heparin 5,000 Units injection 5,000 Units SUBCUTANEOUS q 12 H NaCl 0.9% 1,000 mL iv bolus 1,000 mL INTRAVENOUS PRN DIALYSIS prismaSOL BGK 4 K / 2.5 mEq Ca/Liter 5,000 mL 5,000 mL HEMODIALYSIS continuous (no dispense) prismaSOL BGK 4 K / 2.5 mEq Ca/Liter 5,000 mL 5,000 mL HEMODIALYSIS continuous (no dispense) prismaSOL BGK 4 K / 2.5 mEq Ca/Liter 5,000 mL 5,000 mL HEMODIALYSIS continuous (no dispense) dextrose 40 % 15 g 15 g ORAL PRN Or glucagon 1 mg injection (GLUCAGEN) 1 mg INTRAMUSCULAR PRN Or dextrose 50% in water 25 mL syringe 12.5 g INTRAVENOUS PRN magnesium sulfate 1 g in D5W 100 mL 1 g INTRAVENOUS PRN magnesium sulfate in water 2 g in sterile water 50 ml 2 g INTRAVENOUS PRN fentaNYL 20 mcg/mL iv infusion in NaCl 0.9% 100 mL 0-200 mcg/hr INTRAVENOUS CONTINUOUS NORepinephrine 16 mg in D5W 250 mL (LEVOPHED) 0-30 mcg/min INTRAVENOUS CONTINUOUS Chlorhexidine Gluconate 0.12 % 15 mL (PERIDEX) 15 mL ORAL q 12 H Lines, Drains, and Airways Line Arterial Line 01/19/18 0840 Arterial Line Right Radial 8 days Central Line Quadruple Lumen 01/19/18 1056 Right Neck 8 days Dialysis / Apheresis Double Lumen 01/24/18 1400 Non-tunneled Right Groin 2 days Drain GI Feed/Drain 01/12/18 0100 15 days Drain/Tube 01/19/18 1015 Midline Abdomen 8 days Airway Airway Endotracheal Tube 01/12/18 1138 14 days PHYSICAL EXAM PERFORMED: HEENT: Dried hemorrhagic ulcerations on lips. Secretions thick yellow. Oral Mucosa: Dry mucous membranes Feeding Tube: +OG tube with bilious drainage of 50ml/hr Eyes: Pupils unequal- OS 4mm and OD 3mm and both reactive. Neck: Unremarkable; No adenopathy or JVD Cardiovascular: Regular rhythm Respiratory: Coarse expiratory BSs and expiratory wheezes in the bases. %FIO2 Min: 40 Max: 40 Abdomen: Soft, Nontender and Occasional BSs on auscultation. Extremities: Edema- Yes and trace LE edema Peripheral Pulses- Present all extremities Capillary Refill- less than 3 seconds Skin: Abnormalities- No Neurologic: Sedated and obtunded. Respiratory/Nursing Documentation: O2 Therapy: Ventilator (01/27/18 0900) Invasive Ventilator Mode: Pressure Regulated Volume Control (01/27/18745) Set Ventilator Respiratory Rate (BPM): 18 (01/27/18745) Total Respiratory Rate (BPM): 26 (01/27/18745) Tidal Volume Set (mL): 480 (01/27/18745) Exhaled Tidal Volume (mL): 530 (01/27/18745) Minute Volume (L): 14.3 (01/27/18745) Peak Inspiratory Pressure (cm H2O): 16 (01/27/18745) PEEP/CPAP (cm H2O): 5 (01/27/18745) HEMODYNAMIC DATA: NUTRITION: Enteral Feeds: No NPO. On TPN at 62.5ml/hr DATA: Diagnostic tests reviewed for today's visit: Most recent labs and imaging results. LABS: Recent Labs 01/27/18 0530 01/26/18 0415 WBC 8.91 -- 13.71* RBC 3.30* -- 3.94* HB 9.4* -- 11.3* HCT 29.4* -- 34.3* MCV 89.1 -- 87.1 PLT 119* -- 135* GLUC 158* < > 213* BUN 42* < > 48* CREAT 1.42* < > 1.57* NA 139 < > 137 K 4.1 < > 4.5 CHLOR 105 < > 105 CO2 27 < > 24 TPROT -- -- 5.3* ALB 1.1* < > 1.3* CA 7.3* < > 7.8* ALKPHOS -- -- 234* TBILI -- -- 7.5* AST -- -- 87* ALT -- -- 89* MG 2.4 < > 2.6 < > = values in this interval not displayed. ABG: Recent Labs 01/25/18 1600 01/25/18 0425 01/24/18 2230 PH 7.478* 7.466* 7.443 PO2 79.2* 78.4* 77.4* PCO2 28.3* 31.4* 30.2* CULTURES: Sputum: Positive- Many MDR Enterobacter cloacae with absence of normal OP john.--01/24/18 Pleural Fluid cx negative from 01/20 CXR FINDINGS: 01/27: Multiple wires and tubes overlie the chest. ?There is an endotracheal tube in profile with the tracheal airway terminating above the kianna, an enteric tube extending into the stomach and a right internal jugular central venous catheter terminating in profile with the right atrium. ? There are bilateral perihilar and right infrahilar parenchymal opacities. ? The lateral costophrenic angles are clear. ? The cardiac and mediastinal silhouette appears stable. ? IMPRESSION: ? Bilateral parenchymal opacities, possible atelectasis or pneumonia. ? Life-support equipment as noted. Assessment/Plan PROBLEMS: ACTIVE PROBLEM LIST Gallstone Pancreatitis Ruptured Abdominal Aortic Aneurysm (Aaa) ([facility]) Dic (Disseminated Intravascular Coagulation) ([facility]) Hemorrhagic Shock ([facility]) Acute Respiratory Failure ([facility]) Cardiac Arrest ([facility]) Hypernatremia Hypokalemia Hypomagnesemia Hypophosphatemia Hyperchloremia Encephalopathy Aaa (Abdominal Aortic Aneurysm, Ruptured) ([facility]) Obesity, Class I, Bmi 30-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 Hypoxic VDRF with bilateral infiltrates now on CXR 2. MDR Enterobacter cloacae pneumonia +/- aspiration 3. Acute on chronic renal faiure on CVVH 4. Leukocytosis resolved 5. Thrombocytopenia--slowly downward platelets 6. Shock--no fever and WBC decreasing. ?Adrenal-related but not clear if he had adrenal insufficiency initially. 7. Moderate anemia--Hgb down 1.9gm today 8. Encephalopathy secondary to cardiac arrest and prolonged hypotension/metabolic issues. 9. S/P ruptured AAA 01/12 with multiple expl laps 10.S/P left thoracentesis 01/20 with negative cultures. 11.Ileus/Gastroparesis intolerant of tube feeds on 01/25. PLANS FOR TODAY: CRITICAL CARE PLAN: Antibiotics , Bronchodilators , Dialysis, Vasopressors, Ventilatory support , Steroids and Trach/PEG scheduled for today. Change ATBx to Merrem given resistance to Zosyn Increase Hydrocortisone back to 50mg q8h given shock Remains Full Code status per family request. Prognosis poor for full recovery. Continue TPN and holding enteral feeds. This patient has a high probability of sudden, clinically significant deterioration, which requires the highest level of physician preparedness to intervene urgently. I managed/supervised life or organ supporting interventions that required frequent physician assessment. I devoted my full attention to the direct care of this patient for the amount of time indicated below. Time I spent with family or surrogate(s) is included only if the patient was incapable of providing the necessary information or participating in medical decision making. Time devoted to teaching is not included. Patient Updated Yes Family Updated Yes Discussed with Staff Yes Time spent providing critical care services: 40 minutes excluding procedures. SIGNATURE: Dorcas Palafox MD PATIENT NAME: Naveen Akins DATE: January 27, 2018 TIME: 10:56 AM PAGER/CONTACT #: [phone] Previous Version Janell Fabian, RN, RN 01/27/2018 11:03 AM Signed Nursing Progress Note Patient Name: Naveen Akins Patient Location: [place] [address] [address]* Daily Note:0845: Pre-surg nurse called for report on patient, plan for PEG tube placement and Trach today by 10am. Nurse said that the team will be over in 5 minutes for huddle, prepare patient. CRRT on hold for OR, blood was returned to patient, line instilled with heparin per protocol. 1030: spoke with dr. Sloan from surgery regarding delay in patient going to OR, said that the first vascular case is taking longer than expected, Mr. Akins is still the next case. Dr. Godoy at bedside, discussed delay, MD said to run patient even with CRRT when he arrives back from the OR. Plan to wean through the weekend. This note was completed by: Janell Fabian, MAGALY Lovelace, ACADEMIC ADMINISTRATOR.MAINTENANCE TEAM MEMBER 01/27/2018 11:20 AM Addendum MICU - PROGRESS NOTE SERVICE DATE: 01/27/2018 SERVICE TIME: 11:04 AM Admission Date: 01/12/2018 AGE: [age] year old LOS: 15 days Subjective REASON FOR ICU ADMISSION: Respiratory Failure Objective PROBLEMS: ACTIVE PROBLEM LIST Gallstone Pancreatitis Ruptured Abdominal Aortic Aneurysm (Aaa) ([facility]) Dic (Disseminated Intravascular Coagulation) ([facility]) Hemorrhagic Shock ([facility]) Acute Respiratory Failure ([facility]) Cardiac Arrest ([facility]) Hypernatremia Hypokalemia Hypomagnesemia Hypophosphatemia Hyperchloremia Encephalopathy Aaa (Abdominal Aortic Aneurysm, Ruptured) ([facility]) Obesity, Class I, Bmi 30-34.9 PAST MEDICAL HISTORY Diagnosis Date - DIC (disseminated intravascular coagulation) ([facility]) 01/12/2018 PAST SURGICAL HISTORY Procedure Laterality Date - LAP CHOLECYSTECT/CHOLANGIOGRAPHY 05-28-09 - REPAIR UMBILICAL NATAN,5+Y/O,REDUC 05-28-09 Social History Marital status: Spouse name: Shelly Years of education: 11 Number of children: 4 Occupational History 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 BP 99/55 Pulse 100 Temp (Src) 97.5 (Axillary) Resp 18 Ht 5' 8 (1.73m) Wt 181 lb 3.5 oz (82.2kg) SpO2 99% BMI 27.56 kg/(m2). Temp (24hrs), Av.7 ?C (98.1 ?F), Min:36.1 ?C (97 ?F), Max:37.3 ?C (99.1 ?F) NET FLUID BALANCE Intake/Output Summary (Last 24 hours) at 01/27/18 1104 Last data filed at 01/27/18 0800 Gross per 24 hour Intake 1608.5 ml Output 2303 ml Net -694.5 ml MEDICATIONS Current Facility-Administered Medications: Parenteral Nutrition - Adult INTRAVENOUS ONCE TPN (1800 START) ipratropium-albuterol 3 mL nebulizer solution (DUONEB) 3 mL INHALATION q 4 H budesonide 0.5 mg/2 mL 0.5 mg (PULMICORT) 0.5 mg INHALATION BID hydrocortisone sodium succinate (PF) 25 mg injection (Solu- CORTEF) 25 mg INTRAVENOUS q 12 H metoclopramide HCl 5 mg injection (REGLAN) 5 mg INTRAVENOUS q 6 H pantoprazole 40 mg injection (PROTONIX) 40 mg INTRAVENOUS BID AC (0600/1600) piperacillin-tazobactam 3.375 g in dextrose (iso-osmotic) 50 mL (ZOSYN) 3.375 g INTRAVENOUS q 6 H midazolam 100 mg in D5W 100 mL (VERSED) 1-10 mg/hr INTRAVENOUS CONTINUOUS docusate sodium oral liquid 100 mg/10 mL (DIOCTO,COLACE) 100 mg OROGASTRIC BID senna leaf extract 176 mg/5 mL 528 mg 15 mL OROGASTRIC BID carboxymethylcellulose sodium 1-2 Drop (CELLUVISC) 1-2 Drop BOTH EYES PRN polyvinyl alcohol-povidone 1.4-0.6 % 1 Drop (REFRESH) 1 Drop BOTH EYES QID PRN heparin 1,000 unit/mL 4,000 Units injection 4,000 Units INTRAVENOUS 3 Times weekly with dialysis heparin 5,000 Units injection 5,000 Units SUBCUTANEOUS q 12 H NaCl 0.9% 1,000 mL iv bolus 1,000 mL INTRAVENOUS PRN DIALYSIS prismaSOL BGK 4 K / 2.5 mEq Ca/Liter 5,000 mL 5,000 mL HEMODIALYSIS continuous (no dispense) prismaSOL BGK 4 K / 2.5 mEq Ca/Liter 5,000 mL 5,000 mL HEMODIALYSIS continuous (no dispense) prismaSOL BGK 4 K / 2.5 mEq Ca/Liter 5,000 mL 5,000 mL HEMODIALYSIS continuous (no dispense) dextrose 40 % 15 g 15 g ORAL PRN Or glucagon 1 mg injection (GLUCAGEN) 1 mg INTRAMUSCULAR PRN Or dextrose 50% in water 25 mL syringe 12.5 g INTRAVENOUS PRN magnesium sulfate 1 g in D5W 100 mL 1 g INTRAVENOUS PRN magnesium sulfate in water 2 g in sterile water 50 ml 2 g INTRAVENOUS PRN fentaNYL 20 mcg/mL iv infusion in NaCl 0.9% 100 mL 0-200 mcg/hr INTRAVENOUS CONTINUOUS NORepinephrine 16 mg in D5W 250 mL (LEVOPHED) 0-30 mcg/min INTRAVENOUS CONTINUOUS Chlorhexidine Gluconate 0.12 % 15 mL (PERIDEX) 15 mL ORAL q 12 H Lines, Drains, and Airways Line Arterial Line 01/19/18 0840 Arterial Line Right Radial 8 days Central Line Quadruple Lumen 01/19/18 1056 Right Neck 8 days Dialysis / Apheresis Double Lumen 01/24/18 1400 Non-tunneled Right Groin 2 days Drain GI Feed/Drain 01/12/18 0100 15 days Drain/Tube 01/19/18 1015 Midline Abdomen 8 days Airway Airway Endotracheal Tube 01/12/18 1138 14 days PHYSICAL EXAM PERFORMED: Cardiovascular: Regular tachycardia Respiratory: Reduced breath sounds bilat and Rhonchi bilat %FIO2 Min: 40 Max: 40 Abdomen: Distended Extremities: Edema- Yes Generalized Neurologic: Unresponsive Respiratory/Nursing Documentation: O2 Therapy: Ventilator (01/27/18 1055) Invasive Ventilator Mode: Pressure Regulated Volume Control (01/27/18 1055) Set Ventilator Respiratory Rate (BPM): 18 (01/27/18 1055) Total Respiratory Rate (BPM): 23 (01/27/18 1055) Tidal Volume Set (mL): 480 (01/27/18 1055) Exhaled Tidal Volume (mL): 514 (01/27/18 1055) Minute Volume (L): 8.8 (01/27/18 1055) Peak Inspiratory Pressure (cm H2O): 14 (01/27/18 1055) PEEP/CPAP (cm H2O): 5 (01/27/18 1055) HEMODYNAMIC DATA: Reviewed NUTRITION: Enteral Feeds: TPN DATA: Diagnostic tests reviewed for today's visit, films/specimens were personally reviewed by me: Most recent labs and imaging results. LABS: Recent Labs 01/27/18 0530 01/26/18 0415 WBC 8.91 -- 13.71* RBC 3.30* -- 3.94* HB 9.4* -- 11.3* HCT 29.4* -- 34.3* MCV 89.1 -- 87.1 PLT 119* -- 135* GLUC 158* < > 213* BUN 42* < > 48* CREAT 1.42* < > 1.57* NA 139 < > 137 K 4.1 < > 4.5 CHLOR 105 < > 105 CO2 27 < > 24 TPROT -- -- 5.3* ALB 1.1* < > 1.3* CA 7.3* < > 7.8* ALKPHOS -- -- 234* TBILI -- -- 7.5* AST -- -- 87* ALT -- -- 89* MG 2.4 < > 2.6 < > = values in this interval not displayed. ABG: Recent Labs 01/25/18 1600 01/25/18 0425 01/24/18 2230 PH 7.478* 7.466* 7.443 PO2 79.2* 78.4* 77.4* PCO2 28.3* 31.4* 30.2* Assessment/Plan IMPRESSION: Critical Care Documentation: The patient has the following organ/system impairment(s): 1.Acute hypoxic respiratory failure/ARDS/Bilat pleuaral effusions-remains intubated on 40% FIO2 2. Ruptured AAA ?Sp repair-Wound closed vac in place draining sm amt serosanguinous drainage 3.SP cardiac arrest 4.Shock-Levophed support at 14mcg 5. Pt is nonresponsive-even to noxious stimuli-Encephalopathy 6.Thrombocytopenia-platelet 119,000 7.Nutritional support-TPN 8.Sinus tachycardia-SVT resolved-frequent PACs this AM 9.TERENCE on CKD-on CRRT 10. Fentanyl drip at 150mcg/kh for pain control 11. Ileus/gastroparesis 12. Acute blood loss anemia-dropped 2 Gms since yesterday 13.Hyperlipidemia improving 14.Trach /PEG today This patient has a high probability of sudden, clinically significant deterioration, which requires the highest level of physician preparedness to intervene urgently. I managed/supervised life or organ supporting interventions that required frequent physician assessment. I devoted my full attention to the direct care of this patient for the amount of time indicated below. Time I spent with family or surrogate(s) is included only if the patient was incapable of providing the necessary information or participating in medical decision making. Time devoted to teaching is not included. Discussed with staff/patient/family Time spent providing critical care services: 40 minutes excluding procedures. SIGNATURE: Paulo Lovelace APRN.MAINTENANCE TEAM MEMBER PATIENT NAME: Naveen Akins DATE: January 27, 2018 TIME: 11:04 AM Previous Version Troy Godoy MD 01/27/2018 11:29 AM Signed Subjective. Going for trach and PEG today Last neuro note reviewed. ? Urine output, incontinent FiO2 minimal now Remains on TPN 01/27/18 0900 01/27/18 1000 01/27/18 1055 01/27/18 1100 BP: 99/55 Pulse: 102 101 100 100 Resp: Temp: TempSrc: SpO2: 100% 99% 98% 99% Weight: Height: No pallor No icterus No JVD Heart - S1 S2 Lungs - clear Abdomen - surgical wounds + LE - no edema, No cyanosis No rash CMP: Glucose 157 01/27/2018 BUN 48 01/27/2018 Creatinine 1.63 01/27/2018 Sodium 139 01/27/2018 Potassium 3.9 01/27/2018 Chloride 104 01/27/2018 CO2 26 01/27/2018 Protein, Total 5.3 01/26/2018 Albumin 1.1 01/27/2018 Calcium 7.2 01/27/2018 Alkaline Phosphatase 234 01/26/2018 Bilirubin, Total 7.5 01/26/2018 AST 87 01/26/2018 ALT 89 01/26/2018 Hemoglobin (g/dL) Date Value 11/14/2017 15.0 HGB (g/dL) Date Value 01/27/2018 9.4 Hematocrit (%) Date Value 01/27/2018 29.4 WBC (thou/cmm) Date Value 01/27/2018 8.91 Platelet Count (thou/cmm) Date Value 01/27/2018 119 Assessment/ Plan 1. Acute kidney injury on chronic kidney disease stage 3. Baseline SCr is 1.36 mg/dL on 11/14/17. CKD is likely due to nephrosclerosis related to PAD. TERENCE is 2/2 ischemic ATN from shock. Pt may be making more urine (difficult to quantify since he is incontinent). Still requiring pressors. Volume status actually looks ok. Will run even for now. CXR ok, minimal FiO2 requirements and PEEP for now. obilgate intake around 2L or so ? 2. Shock. Improved. Initially due to hemorrhagic shock-massive blood loss from ruptured AAA +/- adrenal insufficiency. Continue hydrocortisone. ? 5. Ruptured AAA. s/p repair 01/12/18. Management as per vascular surgery. ? 6. Acute hypoxic respiratory failure. Ventilator dependent. Vent management as per ICU. O>I with CRRT UF. ? 7. Encephalopathy. Neuro note reviewed Plan Change UF to even for now. Try to get off levophed as tolerated. will make plans to switch to IHD once he is consistently off levophed Viry Mosher, RD, LD, RD 01/27/2018 11:55 AM Cosign Needed NUTRITION SUPPORT TEAM TOPIC: NUTRITION SUPPORT TEAM PROGRESS NOTE PATIENT NAME: Naveen Akins DATE OF : 1940 DATE: 01/27/2018 Nutritional Status: NO MALNUTRITION IDENTIFIED per RD 01/16/18 ? ? NUTRITION CARE PLAN: ? Problem, Etiology and Signs/Symptoms: Altered GI function related to potential ileus?as evidenced by lack of bowel sounds, distended abdomen, and hypotension. ? NST consult 01/16/18 for TPN support ? Interval History: LOS d 15, tolerating TPN, TF off, planning Peg and Trach today, NPO/NGT Assessment: 77 year old male with Ruptured AAA s/p Emergent Repair, takeback washout, repair of serosal tears x2, on 01/12, hemorrhagic shock, acute resp failure with pulm edema, TERENCE, SVT s/p Third Look Laparotomy and?washout on 01/14, fourth look, washout, vac change on 01/16 ?remains on vent, continues on CRRT 01/19 ?X lap, wash out, partial fascial closure, wound vac change 01/20 pressors weaned off Remains on diprivan gtt 01/20 rt thoracentesis- breathing better 01/21 limited abdominal x lap and closure 01/22 levo at pm restarted 01/23 neuro consult, ? plans for trach/Peg 01/24 new femoral HD line per nephrology, working good 01/25 + emesis 01/26 started on Zosyn for GNR ( sputum) , TF off 01/27 plans for Peg/Trach ? ? Tmax: 37.4 WBC: 8.91 Edema: 3+ UE, LE Lines: Art Line, Quad lumen, HD cath, all WNL Lytes: reviewed PAB: Decreased to 17.0 WT: ?82.2?kg ( down from 104 kg) GFR: 41.13 Trig : improved to 352, off diprivan and lipids in TPN--> recheck Trig on 01/30/18 Recommendations: TPN renewed: increased NACL ? TPN script: 1.5?L /24 hrs providing 1760 calories ( 21?kcals/kg ABW 84?kg) and 90 gms pro ( ~ 1.0 gms/kg ABW 84?kg) per day ? CHO:insulin ratio is ?9.1:1?, with 412 ?gms CHO in TPN , 45 units in TPN bag ? Resume TF as able Collaborated with Dr Dudley and orders written. Vitals: Temperature Max in 24 hours: Temp (24hrs), Av.7 ?C (98.1 ?F), Min:36.1 ?C (97 ?F), Max:37.3 ?C (99.1 ?F) Current Vital Signs: BP 99/55 Pulse 100 Temp 36.4 ?C (97.5 ?F) Resp 18 Ht 172.7 cm (5' 8) Wt 82.2 kg (181 lb 3.5 oz) SpO2 99% BMI 27.55 kg/m? Current Weight: Weight: 82.2 kg (181 lb 3.5 oz) Intake AND Output: Intake/Output Summary (Last 24 hours) at 01/27/18 1139 Last data filed at 01/27/18 1100 Gross per 24 hour Intake 1928.4 ml Output 2303 ml Net -374.6 ml Laboratory Data: Recent Labs 01/27/18 1050 01/27/18 0530 01/26/18 2345 01/26/18 0415 NA 139 139 137 < > 137 K 3.9 4.1 4.6 < > 4.5 CHLOR 104 105 106 < > 105 CO2 26 27 25 < > 24 CREAT 1.63* 1.42* 1.41* < > 1.57* BUN 48* 42* 42* < > 48* GLUC 157* 158* 156* < > 213* P 3.1 2.8 3.0 < > 3.1 TPROT -- -- -- -- 5.3* ALB 1.1* 1.1* 1.1* < > 1.3* MG 2.4 2.4 2.4 < > 2.6 CA 7.2* 7.3* 7.4* < > 7.8* < > = values in this interval not displayed. Recent Labs 01/26/18 1050 PREALB 17.0* Viry Mosher RD, LD, [facility] Pager: [phone] Increments: 3 OPERATIVE NO Observed: 01/12/2018 Status: COMPLETED Source: [place] 12:00 AM CLINIC OTHER CAMPUS REPOSITORY HNO ID: [id number] Author: Venkat Paniagua Service: Vascular Surgery Author Type: Physician Type: Operative Report Filed: 01/15/2018 12:16 PM Note Text: [facility] - Operative Report SURGEON: Venkat Paniagua MD PATIENT NAME: NAVEEN AKINS CSN: [id number] DATE OF SURGERY: 01/12/2018 DATE OF : 1940 SEX/AGE: M/77 PATIENT TYPE: I HOSP [facility] [place] [place] LOCATION: [id number] DATE OF SURGERY: 01/12/2018 SURGEON: Venkat Paniagua MD PREOPERATIVE DIAGNOSES: Ruptured abdominal aortic aneurysm, preoperative cardiac arrest. POSTOPERATIVE DIAGNOSES: Ruptured abdominal aortic aneurysm, preoperative cardiac arrest. PROCEDURE: Cardiopulmonary resuscitation, repair of ruptured abdominal aortic aneurysm using an 18 mm x 9 mm Hemashield graft, application of ABThera device. VISUAL ARTS TEACHER: Dr. Melody Dixon SA. ANESTHESIA: General. HISTORY: This patient, we were notified of about 45 minutes ago when he was at [facility], found to be hypotensive and had a CT scan that showed a ruptured abdominal aortic aneurysm. We recommended that the patient be life flighted here and this was done. At some point during the LifeFlight, the patient became markedly hypotensive and then underwent cardiopulmonary arrest in the helicopter. He had CPR being performed when he was brought to the operating room. We continued the cardiopulmonary resuscitation with the efforts of the resident staff and Anesthesia and quickly performed the following. DESCRIPTION OF PROCEDURE: The patient was placed on the operating table in the supine position. A rapid ChloraPrep was done over the abdominal wall; however, a true sterile prep was not performed. Drapes were laid and the patient had a midline incision made in the following fashion. A midline incision was made from the xiphoid process down to the pubic process. This was carried through the skin and subcutaneous tissues. There was no bleeding noted in the skin or subcutaneous tissues. At this point in time, we continued the dissection down to the midline. I opened the midline very rapidly and retracted the bowel contents superiorly and laterally. While I was doing this, Anesthesia was placing resuscitative intravenous lines and arterial lines and CPR was being continued. The patient continued to have CPR and when I put my hand on the aorta, there was no pulse except with CPR. At that point, we went ahead and proceeded to rapidly open the retroperitoneum over the ruptured abdominal aortic aneurysm. There was a large amount of hemoperitoneum that had been noted. I rapidly placed my finger inside the aneurysm, opened the aneurysm and then proceeded to place an intra-aortic balloon occluded proximally. This was inflated and distally, I used direct pressure on the iliac vessels to control them initially. We allowed Anesthesia to try to resuscitate the patient further and at that point, they were able to get a blood pressure back and at this point, he had return of the spontaneous rhythm. He had been in V-tach, which we converted spontaneously. He, at this point in time, had ongoing dissection by myself of the iliac vessels proximally. Bilaterally, I isolated the proximal common iliac arteries and at this point, we went ahead and had both good proximal and distal control. I had to clamp at the level of the renal arteries and obstruct flow to the renal arteries with my clamp. At this point, we went ahead and proceeded to bring an 18 x 9 graft and trim it proximally. Once this was trimmed, we went ahead and proceeded to sew the proximal anastomosis. The proximal aortic neck was quite friable, but we were able to achieve an end-to-end anastomosis using a Ayala technique on the back wall and then 3-0 Prolene end-to-end anastomosis. There were several points that were bleeding after we moved the clamp down onto the graft and therefore these had pledgeted sutures placed. Once the pledgeted sutures were placed, we appeared to have good hemostasis proximally and turned our attention to the distal anastomosis. All this time, the patient had massive transfusion protocol being performed. He had a [place] infuser, infusing large amounts of blood. He had restored pressure with the assistance of massive transfusion and Levophed. His pressure was in the 90s to 100s range. At this point, we went ahead and proceeded to do our distal anastomoses, first on the left and then on the right. We were able to circumferentially cut the iliac vessels and perform end-to-end anastomosis with running continuous 5-0 Prolene, first on the left with flow restored and then on the right with flow restored. Once that was accomplished, we went ahead and proceeded to inspect each of these for hemostasis, particularly the right iliac vessel had very friable nature to it and was requiring multiple interrupted sutures to obtain a good hemostatic anastomosis. This was obtained as it was on the left. Both legs were open and we checked for distal pulses and we had good distal pulses in the lower extremities. At this point in time, we went ahead and proceeded to attempt to control hemostasis. The patient had a temperature of 32.7 degrees and had received a large amount of blood product. He had multiple areas of bruising and bleeding that when attempts were made, we actually created almost more bleeding, trying to stop the bleeding at each of these areas. With this being the case, we looked to see if we could find anything that was arterial that could be repaired, we did repair some small torn arterial branches in the mesentery. These were clipped. Other areas were suture ligated. Lumbars had been oversewn with 2-0 silk sutures. At that point, we had ongoing significant problems with hemostasis in general and it was felt that what we would do is packed the retroperitoneum with packs as this seemed to control the bleeding while we were in the operating room. Once we did that, we went ahead and proceeded to have reasonable control. Decision was made to put an ABThera on the patient, return to the intensive care unit for resuscitation and warming and see if we could correct his coagulopathy. The patient was returned to the intensive care unit in critical and unstable condition. At this point, he did have a blood pressure that was in the 120 range. His heart rate was approximately 100 and we felt that we could at least try several hours of resuscitation with blood products to see if we could obtain any control of the coagulopathy. The family was made aware of the extreme nature of his problem and his grave status. We were to observe the patient in the intensive care unit with the potential need for reexploration and definitely removal of the packs at some time in the near future. Venkat Paniagua MD Vascular Surgery DJW:modl /[id number] OPERATIVE NO Observed: 01/12/2018 Status: COMPLETED Source: [place] 12:00 AM CLINIC OTHER CAMPUS REPOSITORY HNO ID: [id number] Author: Venkat Paniagua Service: Vascular Surgery Author Type: Physician Type: Operative Report Filed: 01/15/2018 12:18 PM Note Text: [facility] - Operative Report SURGEON: Venkat Paniagua MD PATIENT NAME: NAVEEN AKINS CSN: [id number] DATE OF SURGERY: 01/12/2018 DATE OF : 1940 SEX/AGE: M/77 PATIENT TYPE: I HOSP [facility] [place] [place] LOCATION: [facility] 01/12/2018 SURGEON: Venkat Paniagua MD PREOPERATIVE DIAGNOSES: Postoperative hemorrhage with postoperative coagulopathy. POSTOPERATIVE DIAGNOSES: Postoperative hemorrhage with postoperative coagulopathy; coagulopathic bleeding noted with no discrete bleeding focus identified. PROCEDURE: Exploration of abdominal wound and retroperitoneum; control of bleeding; and replacement of ABThera wound VAC. ASSISTANTS: Dr. Reynaga, Meaghan Strickland PA. ANESTHESIA: General. HISTORY: This is a patient who previously this morning had a ruptured abdominal aortic aneurysm. At the end of the 1st procedure, he was extremely cold and coagulopathic, and decision was made to try to close the abdomen after packing it and see if we could correct his coagulopathy and correct his hypothermia in the intensive care unit. The patient tolerated this for about an hour, but then began to get unstable, had drained about a 1000 cc out of his ABThera wound VAC, and at that point in time also had bouts of hypotension. As we could not be entirely certain that there was not a discrete focus of bleeding and the fact that he drained about another 500 cc from the wound VAC while we were preparing to take him back to the operating room, it was felt that abdominal exploration was indicated with evaluation of the retroperitoneum and the graft to make sure that there was no discrete arterial bleeding site noted. Risks and benefits of this were discussed with the patient's family. His extremely tenuous status and the very grave nature of his overall physical status had been described to the family as well. PROCEDURE IN DETAIL: With the patient supine position, we prepped over the previously placed ABThera, and at that point in time, once prepping and draping had been performed, removed the ABThera wound VAC. We retracted the mesentery and placed the Omni-Tract retractor and thoroughly inspected each of the anastomosis. Both Dr. Reynaga and myself inspected each of the anastomosis and found no discrete bleeding point at any one of these sites. There was diffuse coagulopathic bleeding noted. There was blood welling up from where the aneurysm had ruptured into the pelvis and into the upper quadrants and into the retroperitoneum. This would slowly pool in drain. With this being the case, I discussed things with Anesthesia. I discussed the fact that at this point in time I did not feel we could return him to the intensive care unit that we would need to try to correct his coagulopathy here and as well try to see if we could raise his temperature. While doing this, we would place packs in the wound and control with manual pressure any oozing that was encountered. While we were doing this, we also inspected and tried with clips and cautery to perform a control of some of the bleeding. Unfortunately, initially he was so coagulopathic that any attempt to control the bleeding actually created more bleeding and therefore we had banded these attempts and continued to hold pressure. Anesthesia was able to get the appropriate blood products and once the patient had appropriate amounts of cryoprecipitate, fresh frozen plasma and platelets, we began to notice that the bleeding was subsiding. With that being the case, we continued to hold pressure and packed deep into the pelvis and into the retroperitoneum. There was 1 area on the mesentery that we had been retracting that we did find several small venous bleeding areas. These were clipped with clips. Two small serosal tears were also identified and these were treated with Vicryl Lembert sutures to reinforce the area of serosal tearing. At this point in time with relatively good hemostasis noted, we basically once again held for another 15 to 20 minutes worth of pressure. The hemostatic agents had been applied in and around the graft and the retroperitoneum and deep into the pelvis. Once hemostatic agent was placed there and there was what appeared to be good control of the patient's bleeding, we went ahead and proceeded to pack 3 lap sponges, 1 deep in the pelvis, a 2nd one in the more superficial layer of the pelvis, and the final one over the neck of the aneurysm repair. These were packed. We watched and did not see them become over a short period of time and feeling that we had relatively good control here, we then went ahead and proceeded to place the ABThera wound VAC. Once again, the ABThera wound VAC was placed to control the abdominal contents. At this point in time, the patient had much more significant distention of the bowel and it was a little more difficult to get the wound VAC on, but we were able to do so. With this being the case, we brought the patient to a point where he was much more hemodynamically stable. His clotting products had been replenished, and at this point, we felt that we could return him to the intensive care unit for ongoing close monitoring. Venkat Paniagua MD Vascular Surgery DJW:mika /[id number] CHEST 1 VIEW Observed: 01/11/2018 Status: F Source: [place] (PORTABLE) 11:55 PM [facility] [place] REPOSITORY [facility] Imaging Services [address] [place] [id number] Chest 1 View (Portable) MR#: [id number] Acct: [id number] Name: NAVEEN AKINS Rep #: [id number] : 1940 M 77 From: Ashu Montalvo MD PCP: Jack Olmedo MD Status: REG ER Study: Chest 1 View (Portable) Date of Exam: 01/11/18 Exam# [id number] Ordering Dr: Kathy Dill STUDY: X-RAY CHEST REASON FOR EXAM: Male, 77 years old. ETT and OGT placement TECHNIQUE: Single frontal view of the chest. COMPARISON: 01/10/2018 FINDINGS: Endotracheal tube tip 3.3 cm from kianna, in appropriate position. Enteric tube tip excluded by collimation in the abdomen. Bibasilar atelectasis. There is no demonstrated pleural abnormality. Normal size heart. Normal mediastinum and maximilian. Normal visualized pulmonary arteries. There is atherosclerotic calcification of the aortic arch with tortuosity. Normal visualized thoracic spine. Remote deformity of the right scapula. Hardware in the left humerus. There is no demonstrated abnormality of the visualized soft tissue structures of the upper abdomen. RAD/Chest 1 View (Portable) IMPRESSION: Endotracheal tube tip 3.3 cm from kianna, in appropriate position. Enteric tube tip excluded by collimation in the abdomen. Electronically Signed: Ashu Montalvo MD at 0:06 EDT Tel , Service support , CC: Kathy Dill; Jack Olmedo MD Senior Major Gifts Officer: Signed ABDOMEN/PELVIS W IV CONT Observed: 01/11/2018 Status: F Source: [facility] 11:09 PM [facility] REPOSITORY [facility] Imaging Services [address] [place] [id number] Abdomen/Pelvis W IV Cont ONLY MR#: [id number] Acct: [id number] Name: NAVEEN AKINS Rep #: [id number] : 1940 77 From: David Burr DO PCP: Honorio LOREDO,Jack Status: REG ER Study: Abdomen/Pelvis W IV Cont ONLY Date of Exam: 01/11/18 Exam# [id number] Ordering Dr: Kathy Dill STUDY: CT ABDOMEN AND PELVIS WITH CONTRAST REASON FOR EXAM: Male, 77 years old. AAA, weakness RADIATION DOSAGE (If Supplied By Facility): CTDIvol = ( 9.87 ) mGy, DLP = ( 479.51 ) mGycm TECHNIQUE: Transaxial images were obtained from the dome of the diaphragm to the symphysis pubis without oral contrast. 100ML ml of Isovue 370 contrast was administered. Sagittal and coronal images were reconstructed. Individualized dose optimization techniques were used for this CT. COMPARISON: January 10, 2018. FINDINGS: The visualized lung bases are unremarkable. The visualized portions of the heart are within normal limits. Fatty liver. Nonvisualization of the gallbladder. No significant dilatation of the extrahepatic biliary system. Normal spleen. Normal pancreas. Normal bilateral adrenal glands. Small cysts are noted in the kidneys. Focal severe stenosis of the left main renal artery. Normal visualized stomach. Normal small intestine. Diverticulosis of the colon. The appendix is visualized and appears normal. Calcified abdominal aorta with infrarenal aneurysm measuring 7.5 x 7.2 cm. It extends approximately 12.1 cm to the aortic bifurcation. Interval development of a large left retroperitoneal hematoma is noted since extending into the left pelvic region likely related to a leaking aneurysm. No active extravasation is seen. Normal inferior vena cava. Normal urinary bladder. Fatty density at the inguinal canals, right more than left. Mild pelvic fluid. Normal abdominal wall. Degenerative vertebral changes. CT/Abdomen/Pelvis W IV Cont ONLY IMPRESSION: Bilateral renal cysts. Focal severe stenosis of the left main renal artery. Colonic diverticulosis. Infrarenal abdominal aortic aneurysm with interval development of a large left retroperitoneal hematoma extending into the pelvis. A leaking aneurysm cannot be excluded. Mild pelvic fluid. N.B. : The above information has been verbally conveyed by David Burr DO [facility] on 01/11/2018 23:57:11 (ET). Electronically Signed: David Burr DO at 23:57 EDT Tel [phone], Service support , CC: Kathy Dill; Jack Olmedo MD Senior Major Gifts Officer: Signed CBC W/DIFF, AUTOMATED Collected: 01/11/2018 Status: F Source: [place] 11:00 PM [facility] REPOSITORY TYPE CODE TESTS RESULT OUT OF RANGE REFERENCE UNITS LAB L100.1000 4.4-11.0 K/mm3 Normal WBC 9.7 LAB L100.1200 4.6-6.2 M/mm3 Low RBC 4.04 LAB L100.1300 13.0-16.5 g/dl Low HGB 11.7 LAB L100.1400 40-54 % Low HCT 35.0 LAB L100.1500 80-94 fL Normal MCV 86.6 LAB L100.1600 27.0-32.0 pg Normal MCH 29.0 LAB L100.1700 32-36 g/gl Normal MCHC 33.4 LAB L100.1810 11.6-14.6 % Normal RDW CV 13.2 LAB L100.1820 35.1-43.9 fl Normal RDW SD 41.3 LAB L100.1900 150-450 K/mm3 Normal PLT 208 LAB L100.2000 6.2-12.0 fl Normal MPV 9.4 LAB L100.2100 47-70 % Low NEUT% 46.0 LAB L100.2200 19-41 % Normal LY% 39.5 LAB L100.2300 0-10 % High MONO% 10.5 LAB L100.2400 0-5 % Normal EO% 3.5 LAB L100.2500 0-1 % Normal BASO% 0.2 LAB L100.2550 0.0-0.9 % Normal IM GRAN % 0.300 Result Comment: IG% - Immature Granulocytes (promyelocytes, myelocytes and metamyelocytes) > 1% indicates that a LEFT SHIFT is Present. LAB L100.2620 2.0-7.7 X10 3/uL Normal Absolute Neut 4.5 LAB L100.2720 0.83-4.51 X10 3/ul Normal Absolute Lymph 3.83 Performed By: #### L100.0100 #### [facility] [address] [place], [place], [id number] PROTHROMBIN TIME W/INR Collected: 01/11/2018 Status: F Source: [place] 11:00 PM [facility] REPOSITORY TYPE CODE TESTS RESULT OUT OF RANGE REFERENCE UNITS LAB L300.4150 11.7-14.9 SECONDS High PROTIME 15.8 LAB L300.4200 Normal INR 1.3 Performed By: #### L300.3900 #### [facility] [address] [place], [place], [address] COMPREHENSIVE METABOLIC Collected: 01/11/2018 Status: F Source: [facility] 11:00 PM [facility] REPOSITORY TYPE CODE TESTS RESULT OUT OF RANGE REFERENCE UNITS LAB L501.0100 74-106 mg/dL High GLU 206 Result Comment: Glucose result greater than or equal to 200 mg/dL suggests DIABETES MELLITUS per A.D.A. criteria. Please note revised GLUCOSE reference range effective 2017. LAB L501.1000 7-18 mg/dL High BUN 21 LAB L501.1100 0.70-1.30 mg/dL High CREAT,SERUM 1.41 Result Comment: The validity of the calculated GFR AND GFRAA in patients over 70 years has not been determined. Clinical correlation is essential. LAB L501.1110 >60 mL/min Low EST GFR 52 Result Comment: Non- GFR Calc LAB L501.1115 >60 mL/min Normal EST GFR - AA 63 Result Comment: GFR Calc LAB L501.1255 ml/min Normal Estimated CRCL 43.87 LAB L501.1300 10-20 RATIO Normal BUN/CRE 14.9 LAB L501.1500 6.4-8. g/dL Normal 2 T PROT 6.4 LAB L501.1800 3.2-5. g/dL Low 0 ALB 2.7 LAB L501.1950 2.2-4. g/dL Normal 2 GLOB 3.7 LAB L501.2000 0.9-2. RATIO Low 4 A/G 0.7 LAB L501.2200 8.5-10 mg/dL Low .1 CA 7.8 LAB L501.4100 15-37 U/L Low AST 9 LAB L501.4305 45-117 U/L Normal ALK P 105 LAB L501.4405 16-61 U/L Low ALT 9 LAB L501.4600 0.20-1 mg/dL Normal .00 T BILI 0.80 LAB L501.5300 136-14 mmol/L Normal 5 NA 140 LAB L501.5600 3.5-5. mmol/L Low 1 K 3.4 LAB L501.5900 98-107 mmol/L Normal CL 106 LAB L501.6100 21.0-3 mmol/L Normal 2.0 CO2 27.0 LAB L501.6200 5-15 Normal GAP 7 Performed By: #### L500.4050, L501.4010 #### [facility] [address] [place], [address] TROPONIN-I Collected: 01/11/2018 Status: F Source: [place] 11:00 PM [facility] REPOSITORY TYPE CODE TESTS RESULT OUT OF RANGE REFERENCE UNITS LAB L501.4010 <0.045 ng/mL Normal < 0.015 TROPONIN-I Result Comment: TROPONIN-I EXPECTED VALUES <0.045 Negative 0.045 - 0.590 Consistent with Cardiac Damage > OR = 0.600 Critical Value Not every elevated troponin is indicative of VT. These values should be used with clinical judgement in examining the patient's clinical picture for diagnosis. To establish a diagnosis of VT versus myocardial injury, there must be a demonstrated rise and/or fall in the troponin values, in addition to ischemic symptoms, EKG changes, new regional wall motion abnormality, and/or angiographical evidence. PLEASE NOTE: REFERENCE RANGES EDITED 17 Performed By: #### L500.4050, L501.4010 #### [facility] [address] [facility]. [place], [place], [id number] RC Collected: 01/11/2018 Status: F Source: [place] 11:00 [facility] REPOSITORY TYPE CODE TESTS RESULT OUT OF REFERENCE UNITS RANGE LAB U100.0000 [id number] TRANSFUSED PRODUCT: T AND S with Crossmatch, Red Cells COUNT: 4 Performed By: #### U100.0000 #### [facility] - refer to report for specific site TYPE AND SCREEN Collected: 01/11/2018 Status: F Source: [place] 11:00 [facility] REPOSITORY Order Comment: CMV NEG? N Number of units to transfuse: 4 Is there a >20% drop in pt's BP? Y Reason for Ordering Blood: Acute Are the blood/blood products to be transfused? N Is the patient having/had surgery? N Give When? When Ready Irradiated? N Leukodepleted? Y TYPE CODE TESTS RESULT OUT OF RANGE REFERENCE UNITS LAB B10.0800 O Normal BLOOD TYPE GEL POSITIVE LAB B100.4000 Normal Antibody NEGATIVE Screen Performed By: #### B101.7450 #### [facility] [address] [place], [place], [address] SURGICAL TISSUE EXAM Observed: 01/11/2018 Status: F Source: [facility] 12:00 AM [facility] REPOSITORY Test performed at [place] [address] NAME: NAVEEN AKINS REQUESTING: VENKAT PANIAGUA M.D. FINAL DIAGNOSIS: TISSUE FROM ABDOMINAL AORTIC ANEURYSM, REMOVAL - BLOOD CLOT, CALCIFIC DEPOSITS AND ATHEROSCLEROTIC DEBRIS. OPERATIVE PROCEDURE: Aneurysm content CLINICAL INFORMATION: Ruptured abdominal aortic aneurysm GROSS DESCRIPTION: Abdomen Received in formalin labeled aneurysm content are multiple segments of dark red to pale-yellow rubbery and irregularly shaped tissue which aggregate to 8 x 7 x 3.4 cm. Sectioning reveals soft, laminated cut surfaces which are brown-yellow to red in appearance. Continuing Education Director sections are submitted in one cassette, to include potential vessel wall. BMP:loly AMAYA M.D., PATHOLOGIST (Electronic signature on file) Signed out: 01/13/2018 16:39 PRINTED: 01/13/2018 Page 1 of 1 Performed By: #### SURG #### [place] [address] CHEST PA AND LATERAL Observed: 01/10/2018 Status: F Source: [place] 3:33 PM [facility] REPOSITORY [facility] Imaging Services [address] [place] [address] Chest PA and Lateral MR#: [id number] Acct: [id number] Name: NAVEEN AKINS Rep #: [id number] : 1940 M 77 From: Manjit Sahu MD PCP: Jack Olmedo MD Status: REG CLI Study: Chest PA and Lateral Date of Exam: 01/10/18 Exam# [id number] Ordering Dr: Jack Olmedo MD STUDY: X-RAY CHEST REASON FOR EXAM: Male, 77 years old. Fever TECHNIQUE: PA and lateral views of the chest. COMPARISON: 11/01/2013 FINDINGS: Well-circumscribed, relatively dense nodule in the right upper lobe measures 8 mm, stable likely representing granuloma. There is no demonstrated pleural abnormality. Normal size heart. Normal mediastinum and maximilian. Normal visualized pulmonary arteries. There is atherosclerotic calcification of the aortic arch with tortuosity. There are diffuse degenerative changes of the visualized thoracic spine. Operative hardware of the left humerus partially visualized. There is no demonstrated abnormality of the visualized soft tissue structures of the upper abdomen. RAD/Chest PA and Lateral IMPRESSION: No acute airspace disease or pleural effusion. Stable exam. Electronically Signed: Manjit Sahu MD at 9:10 EDT , Service support , CC: Jack Olmedo MD Senior Major Gifts Officer: Signed ABDOMEN/PELVIS WITHOUT Observed: 01/10/2018 Status: F Source: [place] CONT 3:31 PM [facility] REPOSITORY [facility] Imaging Services [address] [place] [address] Abdomen/Pelvis without Cont MR#: [id number] Acct: [id number] Name: NAVEEN AKINS Rep #: [id number] : 1940 77 From: Manjit Sahu MD PCP: Jack Olmedo MD Status: REG CLI Study: Abdomen/Pelvis without Cont Date of Exam: 01/10/18 Exam# [id number] Ordering Dr: Jack Olmedo MD STUDY: CT ABDOMEN AND PELVIS WITHOUT CONTRAST REASON FOR EXAM: Male, 77 years old. Left lower quadrant pain, fever RADIATION DOSAGE (If Supplied By Facility): CTDIvol = ( 6.93 ) mGy, DLP = ( 359.97 ) mGycm TECHNIQUE: Transaxial images were obtained from the dome of the diaphragm to the symphysis pubis without oral contrast, and without intravenous contrast. Sagittal and coronal images were reconstructed. Individualized dose optimization techniques were used for this CT. COMPARISON: None. FINDINGS: There are chronic interstitial fibrotic changes of the lung bases. There are atherosclerotic calcifications of the coronary arteries. Normal liver. The gallbladder appears to be surgically absent. Normal spleen. Normal pancreas. Normal bilateral adrenal glands. Mild atrophy of both kidneys. Low-density exophytic lesion of the right kidney measures 7 mm, likely representing a simple cyst. Normal visualized stomach. Normal small intestine. There are multiple colonic diverticula consistent with diverticulosis. The appendix is visualized and appears normal. Significant tortuosity of the abdominal aorta with infrarenal fusiform abdominal aortic aneurysm measuring 6.4 x 6.8 cm (AP by transverse). Atherosclerotic calcifications are noted through the aortoiliac system. Normal inferior vena cava. Normal retroperitoneum. Normal urinary bladder. There is a right-sided inguinal hernia containing adipose tissue. There are degenerative changes of the lumbar spine with levoscoliosis. Canal narrowing most conspicuous at L2-L3. CT/Abdomen/Pelvis without Cont IMPRESSION: 1. Infrarenal fusiform abdominal aortic aneurysm measuring up to 6.8 cm in axial dimension. Surgical consultation is suggested. No evidence of periaortic inflammation/leak. Limited evaluation without IV contrast. 2. Diverticulosis without evidence of diverticulitis. 3. Cholecystectomy. 4. Subcentimeter right renal cyst. Electronically Signed: Manjit Sahu MD at 9:03 EDT , Service support , CC: Jack Olmedo MD Senior Major Gifts Officer: Signed ERYTHROCYTE SED RATE Collected: 01/10/2018 Status: F Source: [place] 12:19 PM [facility] REPOSITORY TYPE CODE TESTS RESULT OUT OF RANGE REFERENCE UNITS LAB L102.0000 0-20 mm/hr High SED RATE 27 Performed By: #### L101.9900, L100.0100 #### [facility] [address] [place], [address] CBC W/DIFF, AUTOMATED Collected: 01/10/2018 Status: F Source: [place] 12:19 PM [facility] REPOSITORY TYPE CODE TESTS RESULT OUT OF RANGE REFERENCE UNITS LAB L100.1000 4.4-11.0 K/mm3 Normal WBC 5.5 LAB L100.1200 4.6-6.2 M/mm3 Normal RBC 4.61 LAB L100.1300 13.0-16.5 g/dl Normal HGB 13.0 LAB L100.1400 40-54 % Low HCT 39.9 LAB L100.1500 80-94 fL Normal MCV 86.6 LAB L100.1600 27.0-32.0 pg Normal MCH 28.2 LAB L100.1700 32-36 g/gl Normal MCHC 32.6 LAB L100.1810 11.6-14.6 % Normal RDW CV 13.6 LAB L100.1820 35.1-43.9 fl Normal RDW SD 42.1 LAB L100.1900 150-450 K/mm3 Normal PLT 194 LAB L100.2000 6.2-12.0 fl Normal MPV 9.9 LAB L100.2100 47-70 % Normal NEUT% 50.2 LAB L100.2200 19-41 % Normal LY% 32.7 LAB L100.2300 0-10 % High MONO% 11.8 LAB L100.2400 0-5 % Normal EO% 4.9 LAB L100.2500 0-1 % Normal BASO% 0.2 LAB L100.2550 0.0-0.9 % Normal IM GRAN % 0.200 Result Comment: IG% - Immature Granulocytes (promyelocytes, myelocytes and metamyelocytes) > 1% indicates that a LEFT SHIFT is Present. LAB L100.2620 2.0-7.7 X10 3/uL Normal Absolute Neut 2.8 LAB L100.2720 0.83-4.51 X10 3/ul Normal Absolute Lymph 1.80 Performed By: #### L101.9900, L100.0100 #### [facility] [address] [place], [place], [address] URINALYSIS, ROUTINE Collected: 01/10/2018 Status: F Source: [place] (DIPSTICK) 12:19 PM [facility] REPOSITORY Order Comment: How was Urine Obtained? CLEAN CATCH TYPE CODE TESTS RESULT OUT OF RANGE REFERENCE UNITS LAB L400.3000 Yellow COLOR Normal Yellow LAB L400.3050 Clear Normal CLARITY Sl. Cloudy LAB L400.3200 Normal mg/dl Normal GLUCOSE, UR Normal LAB L400.3300 Negative mg/dL Normal BILIRUBIN URINE Negative LAB L400.3400 Negative mg/dl High 5 KETONE UR LAB L400.3465 1.002-1.030 Normal SP.GR. DIPSTX 1.015 LAB L400.3550 5.0 - 8.0 pH UR Normal 6.0 LAB L400.3600 Negative mg/dl High PROT 30 DIPSTX LAB L400.3700 Normal mg/dl High 4 UROBILI LAB L400.3750 Negative Normal NITRITE UR Negative LAB L400.3780 Negative /ul High OCCULT BLOOD-UR 150 LAB L400.3800 Negative /ul High LEUK 25 ESTERASE Performed By: #### L400.2011 #### [facility] [address] [place], [address] COMPREHENSIVE METABOLIC Collected: 01/10/2018 Status: F Source: [facility] 12:19 PM [facility] REPOSITORY Order Comment: Is Patient Taking Vitamins or Folic Acid Supplements? N TYPE CODE TESTS RESULT OUT OF RANGE REFERENCE UNITS LAB L501.0100 74-106 mg/dL Normal GLU 100 Result Comment: Fasting Glucose result from 100 to 125 mg/dL suggests IMPAIRED HOMEOSTASIS per A.D.A. criteria. Please note revised GLUCOSE reference range effective 2017. LAB L501.1000 7-18 mg/dL High BUN 19 LAB L501.1100 0.70-1.30 mg/dL Normal CREAT,SERUM 1.30 Result Comment: The validity of the calculated GFR AND GFRAA in patients over 70 years has not been determined. Clinical correlation is essential. LAB L501.1110 >60 mL/min Low EST GFR 57 Result Comment: Non- GFR Calc LAB L501.1115 >60 mL/min Normal EST GFR - AA 69 Result Comment: GFR Calc LAB L501.1300 10-20 RATIO Normal BUN/CRE 14.6 LAB L501.1500 6.4-8.2 g/dL T Normal PROT 7.6 LAB L501.1800 3.2-5.0 g/dL Normal ALB 3.3 LAB L501.1950 2.2-4.2 g/dL High GLOB 4.3 LAB L501.2000 0.9-2.4 RATIO Low A/G 0.8 LAB L501.2200 8.5-10.1 mg/dL CA Normal 8.8 LAB L501.4100 15-37 U/L Low AST 13 LAB L501.4305 45-117 U/L High ALK P 133 LAB L501.4405 16-61 U/L Low ALT 12 LAB L501.4600 0.20-1.00 mg/dL T Normal BILI 1.00 LAB L501.5300 136-145 mmol/L NA Normal 142 LAB L501.5600 3.5-5.1 mmol/L K Normal 3.9 LAB L501.5900 98-107 mmol/L CL Normal 104 LAB L501.6100 21.0-32.0 mmol/L Normal CO2 28.0 LAB L501.6200 5-15 Normal GAP 10 Performed By: #### L500.4050, L501.6710, L501.9520, L503.6550, L506.0250 #### [facility] [address] [facility]. [place], [place], [id number] CRP Collected: 01/10/2018 Status: F Source: [place] 12:19 PM [facility] REPOSITORY Order Comment: Is Patient Taking Vitamins or Folic Acid Supplements? N TYPE CODE TESTS RESULT OUT OF RANGE REFERENCE UNITS LAB L501.6710 0.0-3.0 mg/L High 69.60 C-REACTIVE PROT Result Comment: C-Reactive Protein (CRP) provides useful information for the diagnosis, therapy and monitoring of inflammatory processes and associated diseases. For the evaluation of Relative Risk for Cardiovascular Disease, a High Sensitivity CRP (HSCRP) should be ordered. Performed By: #### L500.4050, L501.6710, L501.9520, L503.6550, L506.0250 #### [facility] [address] [facility]. [place], [place], [address] THYROID STIM HORMONE Collected: 01/10/2018 Status: F Source: [place] (TSH) 12:19 PM [facility] REPOSITORY Order Comment: Is Patient Taking Vitamins or Folic Acid Supplements? N TYPE CODE TESTS RESULT OUT OF RANGE REFERENCE UNITS LAB L501.9520 0.358-3.74 uIU/mL Normal TSH 3.05 Performed By: #### L500.4050, L501.6710, L501.9520, L503.6550, L506.0250 #### [facility] [address] [facility]. [facility] [address] FERRITIN Collected: 01/10/2018 Status: F Source: [place] 12:19 PM [facility] REPOSITORY Order Comment: Is Patient Taking Vitamins or Folic Acid Supplements? N TYPE CODE TESTS RESULT OUT OF REFERENCE UNITS RANGE LAB L503.6550 26-388 ng/mL High FERRITIN 513 Performed By: #### L500.4050, L501.6710, L501.9520, L503.6550, L506.0250 #### [facility] [address] [place], [address] FOLATES, (FOLIC ACID) Collected: 01/10/2018 Status: F Source: [place] 12:19 PM [facility] REPOSITORY Order Comment: Is Patient Taking Vitamins or Folic Acid Supplements? N TYPE CODE TESTS RESULT OUT OF RANGE REFERENCE UNITS LAB L506.0250 3.1-55.4 ng/mL Normal FOLATES 13.90 Performed By: #### L500.4050, L501.6710, L501.9520, L503.6550, L506.0250 #### [facility] [address] [place], [address] VITAMIN B12 Collected: 01/10/2018 Status: F Source: [place] 12:19 PM [facility] REPOSITORY TYPE CODE TESTS RESULT OUT OF RANGE REFERENCE UNITS LAB L503.0105 211-911 pg/mL Normal Vitamin B12 344 Performed By: #### L503.0105, L506.1000 #### [facility] [address] [place], [address] VITAMIN D,25 HYDROXY Collected: 01/10/2018 Status: F Source: [place] 12:19 PM [facility] REPOSITORY TYPE CODE TESTS RESULT OUT OF RANGE REFERENCE UNITS LAB L506.1000 29.95-100.01 ng/mL Normal Vitamin D 30.5 25-OH Result Comment: Vitamin D 25(OH) Status Range Deficiency <20 ng/mL (50nmol/L) Insuffciency 20 - 30 ng/mL (50 - 75 nmol/L) Sufficiency 30 - 100 ng/mL (75 - 250 nmol/L) Toxicity >100 ng/mL (>250 nmol/L) Performed By: #### L503.0105, L506.1000 #### [facility] [address] [facility] [place], [address] ANTINUCLEAR ANTIBODIES Collected: 01/10/2018 Status: F Source: [place] DIRECT 12:19 PM [facility] REPOSITORY TYPE CODE TESTS RESULT OUT OF REFERENCE UNITS RANGE LAB L3100.5475 Negative High Positive ASHWIN-DIRECT Result Comment: Performed at: [facility] [id number] Leaf Tinner: Nahun Charles PhD, Phone: [phone] Performed By: #### L3100.5475 #### [facility] (refer to report for specific site) refer to report for address and phone number Observed: 01/10/2018 Status: F Source: [place] CULTURE, URINE 12:19 PM [facility] REPOSITORY Urine Culture Below infection level. ORGANISM 1: Mixed Gram Positive Organisms [place] Count 1000-10,000 MIX CULTURE Mixed contaminants. Submit a new specimen if indicated. Performed By: #### M100.0650 #### [facility] [facility] [place], [address] Observed: 01/10/2018 Status: F Source: [place] CULTURE, BLOOD (WB) 12:19 PM [facility] REPOSITORY BC No growth in 5 days. Performed By: #### M200.1000 #### [facility] [address] [place], [address] DOWNTIME REPORT Observed: 11/24/2017 Status: F Source: [place] 2:00 PM [facility] REPOSITORY [facility] Medical Records Department [address] [place] [address] Downtime Report MR#: [id number] Acct: [id number] Name: NAVEEN AKINS Kaylah Rep #: [id number] : 1940 77 From: Paramjit Silva PCP: Jack Olmedo MD Status: REG CLI This patient was seen during an EMR downtime November 07, 2017 - November 14, 2017. This patient may have a combination of paper and electronic documentation or all paper documentation. All documentation is viewable within the e-chart portion of [employer] for each patient visit. 12 LEAD ELECTROCARDIOGRAM Observed: 11/21/2017 Status: F Source: [place] 8:46 AM [facility] REPOSITORY [facility] Cardiovascular Services [address] [place] [address] 12 Lead EKG 11/10/17 1605 MR#: [id number] Acct: [id number] Name: NAVEEN AKINS Rep #: [id number] : 1940 77 From: Jax Finnegan MD Attending Dr: Cammy Crowe Status: REG CLI Ordering Dr: Cammy Crowe Date: 11/10/17 Location: [facility] Sex: M C Admitted: Test Reason : PRE OP Blood Pressure : / mmHG Vent. Rate : 060 BPM Atrial Rate : 060 BPM P-R Int : 154 ms QRS Dur : 082 ms QT Int : 404 ms P-R-T Axes : 047 -15 -09 degrees QTc Int : 404 ms Sinus rhythm with occasional Premature ventricular complexes Otherwise normal ECG Confirmed by JAX FINNEGAN MD ([id number]), purchasing expeditor KATHY SILVA ([id number]) on 11/16/2017 6:07:38 PM Referred By: Cammy Crowe Confirmed By:JAX FINNEGAN MD 11/16/171806 Date Jax Finnegan MD CC: Cammy Crowe; Jack Olmedo MD Signed BASIC METABOLIC Collected: 11/10/2017 Status: F Source: [place] PROFILE (BMP) 11:00 AM [facility] REPOSITORY TYPE CODE TESTS RESULT OUT OF RANGE REFERENCE UNITS LAB L501.0100 74-106 mg/dL Normal GLU 81 Result Comment: Please note revised GLUCOSE reference range effective 2017. LAB L501.1000 7-18 mg/dL High BUN 21 LAB L501.1100 0.70-1.30 mg/dL High CREAT,SERUM 1.45 Result Comment: The validity of the calculated GFR AND GFRAA in patients over 70 years has not been determined. Clinical correlation is essential. LAB L501.1110 >60 mL/min Low EST GFR 50 LAB L501.1115 >60 mL/min Normal EST GFR - AA 61 LAB L501.1300 10-20 RATIO Normal BUN/CRE 14.5 LAB L501.2200 8.5-10.1 mg/dL Normal CA 8.8 LAB L501.5300 136-145 mmol/L Normal NA 139 LAB L501.5600 3.5-5.1 mmol/L Normal K 4.3 LAB L501.5900 98-107 mmol/L Normal CL 105 LAB L501.6100 21.0-32.0 mmol/L Normal CO2 27.0 LAB L501.6200 5-15 Normal GAP 7 Performed By: #### L500.2500 #### [facility] [address] [place], [address] CBC-COMPLETE BLOOD CNT Collected: 11/10/2017 Status: F Source: [place] NO DIFF 11:00 AM [facility] REPOSITORY Order Comment: RESULT(S) PREVIOUSLY REPORTED ON MANUAL REQUISITION DURING DOWNTIME. TYPE CODE TESTS RESULT OUT OF RANGE REFERENCE UNITS LAB L100.1000 4.4-11.0 K/mm3 Normal WBC 5.5 LAB L100.1200 4.6-6.2 M/mm3 Normal RBC 4.91 LAB L100.1300 13.0-16.5 g/dl Normal HGB 14.3 LAB L100.1400 40-54 % Normal HCT 42.8 LAB L100.1500 80-94 fL Normal MCV 87.2 LAB L100.1600 27.0-32.0 pg Normal MCH 29.1 LAB L100.1700 32-36 g/gl Normal MCHC 33.4 LAB L100.1810 11.6-14.6 % Normal RDW CV 13.8 LAB L100.1820 35.1-43.9 fl Normal RDW SD 43.5 LAB L100.1900 150-450 K/mm3 Low PLT 148 LAB L100.2000 6.2-12.0 fl Normal MPV 9.7 Performed By: #### L100.0500 #### [facility] [address] [facility] [address] [place], [place], [id number] ALLERGIES ALLERGIES DATE TYPE / CODE NAME / CODE REACTION SEVERITY SOURCE 05/07/2018 Drug famotidine/F0060 Low blood Unknown [place] [facility] Allergy/416 19211(RXNORM) [facility] 981814(SNOM Repository ED CT) 05/07/2018 Drug metoclopramide/F Other Unknown [place] [facility] Allergy/416 [id number](RXNORM Hospital 486466(SNOM ) Repository ED CT) 10/31/2013 Drug No Known Unknown [place] [facility] Allergy/416 Allergies/Y18314 Hospital 012130(SNOM 0388(RXNORM) Repository ED CT) Drug NO KNOWN [facility] Class/81646 ALLERGIES Other [place] 1003(SNOMED Repository CT) NG/[id number] NO KNOWN [facility] 6(SNOMED ALLERGIES Health [facility] CT) Repository ENCOUNTERS ENCOUNTERS ADMIT/DISCHARGE ACCOUNT NUMBER ADMITTING ENCOUNTER LOCATION SOURCE CLASS 05/11/2018 [id number] Ambulatory [facility] ding:CT Repository 05/07/2018/05/08/20 [id number] Emergency [address] ding:ED Repository 05/06/2018 [id number] Jh Gustafson Chi [place] [facility] ding:TCURoom Repository : [id number]: 1 05/06/2018 [id number] Jh Gustafson Chi Ambulatory BMSBuilding: [place] BMS.CF.[facility] Repository 05/06/2018 [id number] Sj, Jh Chi Ambulatory BMSBuilding: [place] BMS.CF.[facility] Repository 05/05/2018/05/06/20 [id number] Agyepong, [place] 18 [facility] ding:PCURoom Repository : OWJ064Vio: 1 05/05/2018 [id number] Agyepong, Ambulatory BMSBuilding: [place] BMS.[facility] Repository 05/05/2018 [id number] Agyepong, Ambulatory BMSBuilding: [place] BMS.[facility] Repository 05/03/2018/05/03/20 [id number] Ambulatory BMSBuilding: [place] 18 BMS.[facility] Repository 04/04/2018/05/05/20 [id number] Jh Gustafson Chi [place] 18 [facility] ding:TCURoom Repository : [id number]: 1 04/01/2018/04/04/20 [id number] [place] 18 Encounter [facility] ding:PCURoom Repository : [id number]: 1 04/01/2018 [id number] [place] Ambulatory BMSBuilding: [place] BMS.[facility] Repository 04/01/2018 [id number] [place] Ambulatory BMSBuilding: [place] BMS.[facility] Repository 04/01/2018 [id number] [place] Ambulatory BMSBuilding: [place] BMS.[facility] Repository 04/01/2018 [id number] [place] Ambulatory BMSBuilding: [place] BMS.[facility] Repository 04/01/2018/04/04/20 [id number] Ambulatory BMSBuilding: [place] 18 [facility] Repository 03/29/2018 [id number] Ambulatory BMSBuilding: [place] [facility] Repository 03/28/2018/04/01/20 [id number] SjJh Chi Inpatient [place] 18 Encounter [facility] ding:TCURoom Repository : OKC60Bql: 1 03/09/2018/03/15/20 [id number] CYNDI [place] [address] LORA Bernard [facility] Repository 03/09/2018/03/15/20 [id number] MD LORA Inpatient [place] [address] MEDICAL Repository MUKWONAGOBuildi ng:MICURoom: 4815Bed: 01/12/2018 [id number] Ambulatory [facility] Repository 01/12/2018/01/13/20 [id number] Ambulatory [place] [address] MEDICAL Repository MUKWONAGOBuildi ng:AKLB 01/12/2018/01/13/20 [id number] Ambulatory [place] [address] MEDICAL Repository MUKWONAGOBuildi ng:AKLB 01/12/2018/02/11/20 [id number] [place] In[place] [address] VENKAT GENARO Encounter [facility] Repository 01/12/2018/02/11/20 [id number] [place] [address] MEDICAL Repository MUKWONAGOBuildi ng:CVICRoom: 3233Bed: 01/12/2018 [id number] PANIAGUA, Inpatient JORDYYUMIKO Bernard Encounter [facility] MEDICAL Repository MUKWONAGOBuild ng:AKSUR 01/11/2018/01/13/20 [id number] Emergency [address] ding:ED Repository 01/10/2018 [id number] Ambulatory [facility] ding:CT Repository 01/10/2018 [id number] Ambulatory [facility] ding:MTLAB Repository 11/10/2017 [id number] [facility] ding:MTLAB Repository PAYERS PAYERS ENCOUNTER GUARANTOR PAYER SUBSCRIBER SOURCE 05/11/2018 NAVEEN Adrian Primary [place] [id number] Insurance:MEDICARE RICHARDDOB: [facility], PART A [facility] [id number] Hospital [place] [address]Evt: Number: Repository [id number] (HP) Date:2018-05-11 05/11/2018 Secondary NOT GIVENUNK [place] Insurance:SELF PAY [facility] Number: Effective Repository Date:2018-05-11 05/07/2018 NAVEEN Adrian Primary [place]AVEEN [place] [id number] Insurance:MEDICARE RICHARDDOB: [facility], PART A [facility] [id number] [place] [address]Jax: Number: Repository [id number] (HP) Date:2018-05-07 05/07/2018 Secondary NOT GIVENUNK [place] Insurance:SELF PAY [facility] Number: Effective Repository Date:2018-05-07 05/06/2018 NAVEEN Adrian Primary NAVEEN [place] [id number] Insurance:MEDICARE RICHARDDOB: [facility], PART A [facility] [id number] Cross Hospital [address]Bzr: Number: Repository [id number] (HP) Date:2018-05-06 05/06/2018 Secondary NOT GIVENUNK [place] Insurance:SELF PAY [facility] Number: Effective Repository Date:2018-05-06 05/06/2018 NAVEEN R Primary NAVEEN Mon[place] [id number] Insurance:MEDICARE [facility] [id number] Cross Hospital [address]Lgd: Number: Repository [id number] (HP) Date:2018-05-06 05/06/2018 Secondary NOT GIVENUNK [place] Insurance:SELF PAY [facility] Number: Effective Repository Date:2018-05-06 05/06/2018 NAVEEN R Primary NAVEEN [place] [id number] Insurance:MEDICARE RICHARDDOB: [facility], PART A [facility] [id number] Cross Hospital [address]Eqw: Number: Repository [id number] (HP) Date:2018-05-06 05/06/2018 Secondary NOT GIVENUNK [place] Insurance:SELF PAY [facility] Number: Effective Repository Date:2018-05-06 05/05/2018 NAVEEN R Primary NAVEEN Adrian [place] [id number] Insurance:MEDICARE RICHARDDOB: [facility], PART A [facility] [id number] Cross Hospital [address]Bll: Number: Repository [id number] (HP) Date:2018-05-04 05/05/2018 Secondary NOT GIVENUNK [place] Insurance:SELF PAY [facility] Number: Effective Repository Date:2018-05-04 05/05/2018 NAVEEN R Primary NAVEEN Adrian [place] [id number] Insurance:MEDICARE RICHARDDOB: [facility], PART A [facility] [id number] Hospital [place] [address]Ccs: Number: Repository [id number] (HP) Date:2018-05-04 05/05/2018 Secondary NOT GIVENUNK [place] Insurance:SELF PAY [facility] Number: Effective Repository Date:2018-05-05 05/05/2018 NAVEEN R Primary NAVEEN Monge [id number] Insurance:MEDICARE RICHARDDOB: [facility], PART A [facility] [id number] Cross Hospital [address]Rdp: Number: Repository [id number] (HP) Date:2018-05-04 05/05/2018 Secondary NOT GIVENUNK [place] Insurance:SELF PAY [facility] Number: Effective Repository Date:2018-05-05 05/03/2018 NAVEEN R Primary NAVEEN Kaylah [place] [id number] Insurance:MEDICARE RICHARDDOB: [facility], PART A [facility] [id number] Hospital [place] [address]Uvr: Number: Repository [id number] (HP) Date:2018-04-05 05/03/2018 Secondary NOT GIVENUNK [place] Insurance:SELF PAY [facility] Number: Effective Repository Date:2018-04-25 04/04/2018 NAVEEN Adrian Primary NAVEEN [place] [id number] Insurance:MEDICARE RICHARDDOB: [facility], PART A [facility] [id number] Hospital [place] [address]Zgh: Number: Repository [id number] (HP) Date:2018-04-04 04/04/2018 Secondary NOT GIVENUNK [place] Insurance:SELF PAY [facility] Number: Effective Repository Date:2018-04-04 04/01/2018 NAVEEN Adrian Primary NAVEEN [place] [id number] Insurance:MEDICARE RICHARDDOB: [facility], PART A [facility] [id number] [place] [address]Kkw: Number: Repository [id number] (HP) Date:2018-04-01 04/01/2018 Secondary NOT GIVENUNK [place] Insurance:SELF PAY [facility] Number: Effective Repository Date:2018-04-01 04/01/2018 NAVEEN Adrian Primary NAVEEN Adrian [place] [id number] Insurance:MEDICARE RICHARDDOB: [facility], PART A [facility] [id number] Hospital [place] [address]Gvj: Number: Repository [id number] (HP) Date:2018-04-01 04/01/2018 Secondary NOT GIVENUNK [place] Insurance:SELF PAY [facility] Number: Effective Repository Date:2018-04-01 04/01/2018 NAVEEN Adrian Primary NAVEEN Kaylah [place] [id number] Insurance:MEDICARE RICHARDDOB: [facility], PART A [facility] [id number] Cross Hospital [address]Vil: Number: Repository [id number] (HP) Date:2018-04-01 04/01/2018 Secondary NOT GIVENUNK [place] Insurance:SELF PAY [facility] Number: Effective Repository Date:2018-04-01 04/01/2018 NAVEEN Adrian Primary NAVEEN [place] [id number] Insurance:MEDICARE RICHARDDOB: [facility], PART A [facility] [id number] Cross Hospital [address]Ndd: Number: Repository [id number] (HP) Date:2018-04-01 04/01/2018 Secondary NOT GIVENUNK [place] Insurance:SELF PAY [facility] Number: Effective Repository Date:2018-04-01 04/01/2018 NAVEEN Adrian Primary NAVEEN Kaylah [place] [id number] Insurance:MEDICARE RICHARDDOB: [facility], PART A [facility] [id number] Cross Hospital [address]Efo: Number: Repository [id number] (HP) Date:2018-04-01 04/01/2018 Secondary NOT GIVENUNK [place] Insurance:SELF PAY [facility] Number: Effective Repository Date:2018-04-01 04/01/2018 NAVEEN Adrian Primary NAVEEN [place] [id number] Insurance:MEDICARE RICHARDDOB: [facility], PART A [facility] [id number] Cross Hospital [address]Juw: Number: Repository [id number] (HP) Date:2018-04-01 04/01/2018 Secondary NOT GIVENUNK [place] Insurance:SELF PAY [facility] Number: Effective Repository Date:2018-04-01 03/29/2018 NAVEEN R Primary NAVEEN Kaylah [place] [id number] Insurance:MEDICARE RICHARDDOB: [facility], PART A [facility] [id number] Cross Hospital [address]Fsb: Number: Repository [id number] (HP) Date:2018-03-28 03/29/2018 Secondary NOT GIVENUNK [place] Insurance:SELF PAY [facility] Number: Effective Repository Date:2018-03-29 03/28/2018 NAVEEN R Primary NAVEEN Adrian [place] [id number] Insurance:MEDICARE RICHARDDOB: [facility] [place], PART A BPolicy [id number] [place] [address]Iul: Number: Repository [id number] (HP) Date:2018-03-28 03/28/2018 Secondary NOT GIVENUNK [place] Insurance:SELF PAY [facility] Number: Effective Repository Date:2018-03-28 03/09/2018 NAVEEN R Primary NAVEEN R [facility] RICHARDDOB: Insurance:MEDICARE A RICHARDDOB: [facility] AND BPolicy Number: [id number] Repository [place], [id number] [place] [address]Hpo: Date: (HP) 01/12/2018 NAVEEN R Primary NAVEEN R [facility] RICHARDDOB: Insurance:MEDICARE A RICHARDDOB: [facility] AND BPolicy Number: [id number] Repository [place], [id number] [place] [address]Jaf: Date: (HP) 01/12/2018 NAVEEN R Primary NAVEEN R [facility] RICHARDDOB: Insurance:MEDICARE A RICHARDDOB: [facility] AND BPolicy Number: [id number] Repository JOSE ALBERTO [place], [id number] [place] [address]Ewd: Date: (HP) 01/11/2018 Naveen R Primary Naveen Adrian [place] [id number] Insurance:MEDICARE RichardDOB[facility] BPolicy [id number] Hospital [place] [address]Asz: Number: Repository [id number] (HP) Date:2018-01-11 01/11/2018 Secondary NOT GIVENUNK [place] Insurance:SELF PAY [facility] Number: Effective Repository Date:2018-01-11 01/10/2018 Naveen R Primary Naveen Monge [id number] Insurance:MEDICARE RichardDOB: [facility] [id number] Cross Hospital [address]Czf: Number: Repository [id number] (HP) Date:2018-01-10 01/10/2018 Secondary NOT GIVENUNK [place] Insurance:SELF PAY [facility] Number: Effective Repository Date:2018-01-10 01/10/2018 Naveen Adrian Primary Naveen Adrian [place] [id number] Insurance:MEDICARE RichardDOB: [facility] [id number] Cross Hospital [address]Ipa: Number: Repository [id number] (HP) Date:2018-01-10 01/10/2018 Secondary NOT GIVENUNK [place] Insurance:SELF PAY [facility] Number: Effective Repository Date:2018-01-10 11/10/2017 Naveen R Primary Naveen Adrian [place] [id number] Insurance:MEDICARE RichardDOB: [facility] [id number] Cross Hospital [address]Zmy: Number: Repository [id number] (HP) Date:2017-11-10 11/10/2017 Secondary NOT GIVENUNK [place] Insurance:SELF PAY [facility] Number: Effective Repository Date:2017-11-10
== END 2018-05-06 14:08 | disposition skilled nursing facility (03) | DRG 69 ==
LOC: ED 23:42 → PCU 05-05 01:47
PROVIDERS: Physician Assistant; Admitting Provider Hospitalist; Emergency Provider Emergency Medicine; Family Provider Family Medicine; PCP Family Medicine; Visit Provider Hospitalist
DX: G45.9 Transient cerebral ischemic attack, unspecified (principal); E43 Unspecified severe protein-calorie malnutrition; G93.1 Anoxic brain damage, not elsewhere classified; E78.5 Hyperlipidemia, unspecified; K21.9 Gastro-esophageal reflux disease without esophagitis; D50.9 Iron deficiency anemia, unspecified; R13.10 Dysphagia, unspecified; I25.10 Atherosclerotic heart disease of native coronary artery without angina pectoris; R53.81 Other malaise; Z93.1 Gastrostomy status; Z86.79 Personal history of other diseases of the circulatory system; Z95.5 Presence of coronary angioplasty implant and graft; Z68.21 Body mass index [BMI] 21.0-21.9, adult; Z86.74 Personal history of sudden cardiac arrest; N18.9 Chronic kidney disease, unspecified; I12.9 Hypertensive chronic kidney disease with stage 1 through stage 4 chronic kidney disease, or unspecified chronic kidney disease; B37.9 Candidiasis, unspecified
CPT/HCPCS: 36415; 70450; 70496; 70498; 70553; 71045; 80048; 80061; 82962; 83036; 84484; 85014; 85018; 85025; 85610; 85730; 92526; 93005; 93306; 97110; 97162; 97165; 97802; 97803; 99281; A9585; J7030; Q9967; A4216

== ENCOUNTER 2018-05-06 14:20 | Inpatient (IN) | payer MEDICARE, SELFPAY ==
[2018-05-05 16:42] VITALS: BMI 21.8
[2018-05-06 14:48] VITALS: BP 130/79; PULSE 86; RESP 18; TEMP 36.7; O2SAT 95; BMI 21.7; BMI 21.8
--- NOTE | 2018-05-06 14:48 | NURSING ---
Patient admitted to room 17a from PCU via bed. Patient oriented to room and call light explained. Family at bedside.
--- NOTE | 2018-05-06 15:17 | PCM.HP.STD ---
Problem List (1) Anoxic encephalopathy Status: Chronic (2) TIA (transient ischemic attack) Status: Acute (3) Abdominal aortic aneurysm, ruptured Status: Chronic Comment: 01/11/2018 (4) Hyperlipidemia Status: Chronic Qualifiers: (5) Iron deficiency anemia Status: Chronic Qualifiers: (6) GERD (gastroesophageal reflux disease) Status: Chronic Qualifiers: (7) Dysphagia Status: Chronic Qualifiers: (8) Coronary artery disease Status: Chronic (9) Hypertension Status: Chronic Qualifiers: History of Present Illness Date of Admission: 05/06/18 Chief Complaint: Here for rehabilitation, strengthening, prior to disposition determination. The patient is a 78 year old Male with below past medical history significant for emergent repair of ruptured abdominal aortic aneurysm with followin05/04/2018 TCU resident left facial droop, left sided weakness, stroke team activated. 05/05/2018 Admit to Hospital. 05/04/2018 CT brain negative for acute infarct. Chronic left basal ganglia infarct. Sinusitis. 05/04/2018 CTA head negative. 05/04/[address] Styles thought TIA superimposed on encephalopathy. 05/05/2018 MRI shannon negative acute infarct. Old right lacunar infarct. 05/05/2018 Echo left ventricular systolic function normal. EF 60%. No diastolic dysfunction. 05/06/2018 Admit to TCU with debility, here for rehabilitation, strengthening, prior to disposition determination. Past Medical History Past Medical History (Chronic Problems): Chronic Problems (Last Reviewed 05/05/18 @ 17:35 by RICA Rosenberg) Malnutrition (Chronic) Anoxic encephalopathy (Chronic) Abdominal aortic aneurysm, ruptured (Chronic) 01/11/2018 Hyperlipidemia (Chronic) Iron deficiency anemia (Chronic) GERD (gastroesophageal reflux disease) (Chronic) Dysphagia (Chronic) Anemia (Chronic) Vasovagal syndrome (Chronic) Coronary artery disease (Chronic) Coronary artery disease (Chronic) Hypertension (Chronic) Medical History: Medical History (Last Reviewed 05/05/18 @ 17:35 by RICA Rosenberg) Abdominal aortic aneurysm, ruptured (Chronic) I71.3 01/11/2018 Cardiac arrest (Inactive) I46.9 Hyperlipidemia (Chronic) E78.5 Iron deficiency anemia (Chronic) D50.9 GERD (gastroesophageal reflux disease) (Chronic) K21.9 Dysphagia (Chronic) R13.10 Anemia (Chronic) D64.9 Vasovagal syndrome (Chronic) R55 Coronary artery disease (Chronic) I25.10 Coronary artery disease (Chronic) I25.10 Hypertension (Chronic) I10 Allergies famotidine [From Pepcid] Adverse Reaction (Verified 05/03/18 11:22) Low blood pressure metoclopramide [From Reglan] Adverse Reaction (Verified 05/03/18 11:22) Other Home Medications: Ambulatory Orders Medication Instructions Recorded Docusate Sodium [COLACE LIQUID] 100 mg GT BID 03/28/18 Ferrous Sulfate Syrup 300 mg GT BID 03/28/18 Heparin Injection 5,000 units SUBCUT BID 03/28/18 Ipratropium/Albuterol Sulfate 3 ml INHALATION TID 03/28/18 [Duoneb] Lansoprazole [Prevacid] 30 mg GT DAILY 03/28/18 Propylene Glycol/Peg 400/Pf 1 ea OP BID 03/28/18 [Systane 0.3-0.4% Eye Drop] Albuterol Aerosols [Ventolin 2.5 mg INHALATION Q2H PRN PRN 04/04/18 Aerosols] vial.neb. 0.9% Normal Saline 60 ml IV Q16H 05/05/18 Acetaminophen Liquid [Tylenol 650 mg GT Q4H PRN PRN 05/05/18 Liquid] Melatonin 3 mg PO QHS 05/05/18 Menthol/Lanolin/Calamine/Znox 1 applic TOPICAL BID 05/05/18 [Calmoseptine Ointment] Nut.sup,Spec,Lac-Free,Iron/Fos 40 ml GT DAILY 05/05/18 [Twocal Hn Liquid] Polyvinyl Alcohol [Artificial 1 drop OP Q4H PRN PRN 05/05/18 Tears] Aspirin [Aspirin, Baby] 81 mg GT DAILY@0800 05/06/18 Atorvastatin Calcium [Lipitor] 40 mg GT QHS 05/06/18 Fluconazole 100 mg PO DAILY 05/06/18 Levofloxacin [Levaquin] 250 mg PO DAILY 05/07/18 Levofloxacin [Levaquin] 750 mg PO DAILY #6 tablet 05/07/18 Surgical History: Surgical History (Last Reviewed 05/05/18 @ 17:35 by Abimbola Morris, HOSPITAL LIBRARIAN-C) H/O abdominal aortic aneurysm repair Z98.890 7 surgeries related to this, also had a wound vac H/O heart artery stent Z95.5 H/O hernia repair Z98.890, Z87.19 Hx of cholecystectomy Z90.49 Left shoulder surgery 1998? 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 Psychiatric History: No pertinent psych hx Lives: Group Home Smoking Status: Never smoker Tobacco Use: Non-smoker Alcohol: None Drugs: None - *Family History Paternal Family History: Family History (Last Reviewed 05/05/18 @ 17:35 by RICA Rosenberg) Sister Factor 5 Leiden mutation, heterozygous Aneurysm Sister Aneurysm History Items: - - No marked maternal or paternal family history reported including HD, DM, CA. Maternal Family History: Family History (Last Reviewed 05/05/18 @ 17:35 by RICA Rosenberg) Sister Factor 5 Leiden mutation, heterozygous Aneurysm Sister Aneurysm History Items: - - No marked maternal or paternal family history reported including HD, DM, CA. Review of Systems Constitutional: Denies: Chills, Fever, Weight Change HEENT: Denies: Head Aches, Sinus Congestion, Sinus Drainage Cardiovascular: Denies: Chest Pain, Palpitations Respiratory: Denies: Cough, Shortness of breath at rest, Sputum production Gastrointestinal: Denies: Abdominal Pain, Nausea, Vomiting Genitourinary: Denies: Dysuria Musculoskeletal: Denies: Joint Pain, Joint Tenderness Skin: Denies: Rash, Wounds Neurological: Denies: Numbness, Tingling, Focal weakness Psychiatric: Denies: Anxiety, Depression, Homicidal Ideations, Suicidal Ideations Hematologic/ Lymphatic: Denies: Easy Bruising, Easy Bleeding VTE Information - Inpt Only VTE Present on Admission: No VTE Mechan Device Prophylaxis: Knee High SKYE Hose VTE Pharm Prophylaxis ordered?: Yes - Physical Exam General: Alert, Oriented x3, Cooperative HEENT: Atraumatic, PERRLA, EOMI, Normocephalic Neck: Supple, No JVD, Negative Carotid Bruits, - - Tracheostomy. Lungs: Clear to auscultation, Normal air movement Cardiovascular: Regular rate, No murmurs Abdomen: Bowel Sounds Present, Soft, Non Tender, - - PEG tube. Extremities: No edema, Capillary Refill Less than 3 Seconds Skin: No rashes, No breakdown Musculoskeletal: No Tenderness to Palpation of Joints or Extremities Neurological: Cranial nerves II-XII grossly intact Psych/Mental Status: Normal Affect, Appropriate Body Mass Index (BMI) 21.8 Finger Stick Blood Glucose 104 Assessment/Plan All Active Problems (Last Reviewed 05/05/18 @ 17:35 by Abimbola Morris, GILBERTO-C) TIA (transient ischemic attack) (Acute) Pneumonia (Acute) Pulmonary nodule, right (Acute) Stroke-like symptoms (Acute) 78 year old male with below past medical history significant for recent emergent ruptured AAA repair, hospitalized for stroke symptoms, diagnosed with TIA superimposed on encephalopathy, admitted to TCU with debility, here for rehabilitation, strengthening, prior to disposition determination. Debility - PT/OT. Pain - Tylenol 650MG Q4H PRN mild pain. Bowel - Colace 100MG BID. Pneumonia vaccination - Administer Prevnar 13 and/or Pneumovax 23 as necessary. DVT prophylaxis - Heparin 5000 units SC BID. Shortness of breath - Duoneb 3ML TID, Albuterol 2.5MG Q2H PRN. TIA - Aspirin 81MG daily. Hyperlipidemia - Atorvastatin 40MG QHS. Iron deficiency anemia - Ferrous sulfate 300MG BID. Thrush - Fluconazole 100MG daily thru 05/13/2018. GERD - Lansoprazole 30MG daily. Insomnia - Melatonin 3MG QHS. Skin irritation - Calmoseptine BID buttocks. Nutrition - TwoCal 40ML/hour, Puree nectar thick diet. Dry Eyes - Artificial Tears 1GTT Q4H PRN, Systane 1GTT BID. RUL pneumonia - Resident developed fever 05/07/2018, sent to [facility] ED, diagnosed with RUL pneumonia, Levaquin 750MG IV given, then 6 days PO. Right lung nodule - 11mm, order PET scan to evaluate for malignancy.
--- NOTE | 2018-05-06 15:22 | HP.PCM_ITS ---
Problem List (1) Anoxic encephalopathy Status: Chronic (2) TIA (transient ischemic attack) Status: Acute (3) Abdominal aortic aneurysm, ruptured Status: Chronic Comment: 01/11/2018 (4) Hyperlipidemia Status: Chronic Qualifiers: (5) Iron deficiency anemia Status: Chronic Qualifiers: (6) GERD (gastroesophageal reflux disease) Status: Chronic Qualifiers: (7) Dysphagia Status: Chronic Qualifiers: (8) Coronary artery disease Status: Chronic (9) Hypertension Status: Chronic Qualifiers: History of Present Illness Date of Admission: 05/06/18 Chief Complaint: Here for rehabilitation, strengthening, prior to disposition determination. The patient is a 78 year old Male with below past medical history significant for emergent repair of ruptured abdominal aortic aneurysm with followin05/04/2018 TCU resident left facial droop, left sided weakness, stroke team activated. 05/05/2018 Admit to Hospital. 05/04/2018 CT brain negative for acute infarct. Chronic left basal ganglia infarct. Sinusitis. 05/04/2018 CTA head negative. 05/04/[address] Styles thought TIA superimposed on encephalopathy. 05/05/2018 MRI shannon negative acute infarct. Old right lacunar infarct. 05/05/2018 Echo left ventricular systolic function normal. EF 60%. No diastolic dysfunction. 05/06/2018 Admit to TCU with debility, here for rehabilitation, strengthening, prior to disposition determination. Past Medical History Past Medical History (Chronic Problems): Chronic Problems (Last Reviewed 05/05/18 @ 17:35 by RICA Rosenberg) Malnutrition (Chronic) Anoxic encephalopathy (Chronic) Abdominal aortic aneurysm, ruptured (Chronic) 01/11/2018 Hyperlipidemia (Chronic) Iron deficiency anemia (Chronic) GERD (gastroesophageal reflux disease) (Chronic) Dysphagia (Chronic) Anemia (Chronic) Vasovagal syndrome (Chronic) Coronary artery disease (Chronic) Coronary artery disease (Chronic) Hypertension (Chronic) Medical History: Medical History (Last Reviewed 05/05/18 @ 17:35 by RICA Rosenberg) Abdominal aortic aneurysm, ruptured (Chronic) I71.3 01/11/2018 Cardiac arrest (Inactive) I46.9 Hyperlipidemia (Chronic) E78.5 Iron deficiency anemia (Chronic) D50.9 GERD (gastroesophageal reflux disease) (Chronic) K21.9 Dysphagia (Chronic) R13.10 Anemia (Chronic) D64.9 Vasovagal syndrome (Chronic) R55 Coronary artery disease (Chronic) I25.10 Coronary artery disease (Chronic) I25.10 Hypertension (Chronic) I10 Allergies famotidine [From Pepcid] Adverse Reaction (Verified 05/03/18 11:22) Low blood pressure metoclopramide [From Reglan] Adverse Reaction (Verified 05/03/18 11:22) Other Home Medications: Ambulatory Orders Medication Instructions Recorded Docusate Sodium [COLACE LIQUID] 100 mg GT BID 03/28/18 Ferrous Sulfate Syrup 300 mg GT BID 03/28/18 Heparin Injection 5,000 units SUBCUT BID 03/28/18 Ipratropium/Albuterol Sulfate 3 ml INHALATION TID 03/28/18 [Duoneb] Lansoprazole [Prevacid] 30 mg GT DAILY 03/28/18 Propylene Glycol/Peg 400/Pf 1 ea OP BID 03/28/18 [Systane 0.3-0.4% Eye Drop] Albuterol Aerosols [Ventolin 2.5 mg INHALATION Q2H PRN PRN 04/04/18 Aerosols] vial.neb. 0.9% Normal Saline 60 ml IV Q16H 05/05/18 Acetaminophen Liquid [Tylenol 650 mg GT Q4H PRN PRN 05/05/18 Liquid] Melatonin 3 mg PO QHS 05/05/18 Menthol/Lanolin/Calamine/Znox 1 applic TOPICAL BID 05/05/18 [Calmoseptine Ointment] Nut.sup,Spec,Lac-Free,Iron/Fos 40 ml GT DAILY 05/05/18 [Twocal Hn Liquid] Polyvinyl Alcohol [Artificial 1 drop OP Q4H PRN PRN 05/05/18 Tears] Aspirin [Aspirin, Baby] 81 mg GT DAILY@0800 05/06/18 Atorvastatin Calcium [Lipitor] 40 mg GT QHS 05/06/18 Fluconazole 100 mg PO DAILY 05/06/18 Levofloxacin [Levaquin] 250 mg PO DAILY 05/07/18 Levofloxacin [Levaquin] 750 mg PO DAILY #6 tablet 05/07/18 Surgical History: Surgical History (Last Reviewed 05/05/18 @ 17:35 by Abimbola Morris, SECONDS GRADER-C) H/O abdominal aortic aneurysm repair Z98.890 7 surgeries related to this, also had a wound vac H/O heart artery stent Z95.5 H/O hernia repair Z98.890, Z87.19 Hx of cholecystectomy Z90.49 Left shoulder surgery 1998? 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 Psychiatric History: No pertinent psych hx Lives: [facility] Smoking Status: Never smoker Tobacco Use: Non-smoker Alcohol: None Drugs: None - *Family History Paternal Family History: Family History (Last Reviewed 05/05/18 @ 17:35 by RICA Rosenberg) Sister Factor 5 Leiden mutation, heterozygous Aneurysm Sister Aneurysm History Items: - - No marked maternal or paternal family history reported including HD, DM, CA. Maternal Family History: Family History (Last Reviewed 05/05/18 @ 17:35 by RICA Rosenberg) Sister Factor 5 Leiden mutation, heterozygous Aneurysm Sister Aneurysm History Items: - - No marked maternal or paternal family history reported including HD, DM, CA. Review of Systems Constitutional: Denies: Chills, Fever, Weight Change HEENT: Denies: Head Aches, Sinus Congestion, Sinus Drainage Cardiovascular: Denies: Chest Pain, Palpitations Respiratory: Denies: Cough, Shortness of breath at rest, Sputum production Gastrointestinal: Denies: Abdominal Pain, Nausea, Vomiting Genitourinary: Denies: Dysuria Musculoskeletal: Denies: Joint Pain, Joint Tenderness Skin: Denies: Rash, Wounds Neurological: Denies: Numbness, Tingling, Focal weakness Psychiatric: Denies: Anxiety, Depression, Homicidal Ideations, Suicidal Ideations Hematologic/ Lymphatic: Denies: Easy Bruising, Easy Bleeding VTE Information - Inpt Only VTE Present on Admission: No VTE Mechan Device Prophylaxis: Knee High SKYE Hose VTE Pharm Prophylaxis ordered?: Yes - Physical Exam General: Alert, Oriented x3, Cooperative HEENT: Atraumatic, PERRLA, EOMI, Normocephalic Neck: Supple, No JVD, Negative Carotid Bruits, - - Tracheostomy. Lungs: Clear to auscultation, Normal air movement Cardiovascular: Regular rate, No murmurs Abdomen: Bowel Sounds Present, Soft, Non Tender, - - PEG tube. Extremities: No edema, Capillary Refill Less than 3 Seconds Skin: No rashes, No breakdown Musculoskeletal: No Tenderness to Palpation of Joints or Extremities Neurological: Cranial nerves II-XII grossly intact Psych/Mental Status: Normal Affect, Appropriate Body Mass Index (BMI) 21.8 Finger Stick Blood Glucose 104 Assessment/Plan All Active Problems (Last Reviewed 05/05/18 @ 17:35 by Abimbola Morris NP-C) TIA (transient ischemic attack) (Acute) Pneumonia (Acute) Pulmonary nodule, right (Acute) Stroke-like symptoms (Acute) 78 year old male with below past medical history significant for recent emergent ruptured AAA repair, hospitalized for stroke symptoms, diagnosed with TIA superimposed on encephalopathy, admitted to TCU with debility, here for rehabilitation, strengthening, prior to disposition determination. * Debility - PT/OT. * Pain - Tylenol 650MG Q4H PRN mild pain. * Bowel - Colace 100MG BID. * Pneumonia vaccination - Administer Prevnar 13 and/or Pneumovax 23 as necessary. * DVT prophylaxis - Heparin 5000 units SC BID. * Shortness of breath - Duoneb 3ML TID, Albuterol 2.5MG Q2H PRN. * TIA - Aspirin 81MG daily. * Hyperlipidemia - Atorvastatin 40MG QHS. * Iron deficiency anemia - Ferrous sulfate 300MG BID. * Thrush - Fluconazole 100MG daily thru 05/13/2018. * GERD - Lansoprazole 30MG daily. * Insomnia - Melatonin 3MG QHS. * Skin irritation - Calmoseptine BID buttocks. * Nutrition - TwoCal 40ML/hour, Puree nectar thick diet. * Dry Eyes - Artificial Tears 1GTT Q4H PRN, Systane 1GTT BID. * RUL pneumonia - Resident developed fever 05/07/2018, sent to [facility] ED, diagnosed with RUL pneumonia, Levaquin 750MG IV given, then 6 days PO. * Right lung nodule - 11mm, order PET scan to evaluate for malignancy.
[2018-05-06] MEDS: 0.9% Normal Saline 1,000 ML IV.SOLN. 60 ML IV (17:49)
[2018-05-06] MEDS: Menthol/Lanolin/Calamine/Znox 113 GM Tube 1 APPLIC TOPICAL (18:03)
[2018-05-06] MEDS: Ferrous Sulfate 300 MG/5 ML UDC GT (18:04)
[2018-05-06] MEDS: Heparin Injection (Vial) 5,000 UNIT/ML VIAL 5000 UNIT SC (18:04)
[2018-05-06] MEDS: Docusate Sodium 100 MG/10 ML UDC GT (18:04)
[2018-05-06 19:35] VITALS: PULSE 88; RESP 16; O2SAT 95
[2018-05-06] MEDS: Ipratropium/Albuterol Sulfate 3 ML AMPUL.NEB INHALATION (19:40)
[2018-05-06] MEDS: Atorvastatin Calcium 40 MG Tablet GT (21:06)
[2018-05-06] MEDS: MELATONIN 3 MG TABLET PO (21:06)
[2018-05-07] MEDS: Ferrous Sulfate 300 MG/5 ML UDC GT ×2 (06:36→18:37)
[2018-05-07] MEDS: Docusate Sodium 100 MG/10 ML UDC GT ×2 (06:36→18:37)
[2018-05-07] MEDS: Heparin Injection (Vial) 5,000 UNIT/ML VIAL 5000 UNIT SC ×2 (06:36→18:38)
[2018-05-07] MEDS: Menthol/Lanolin/Calamine/Znox 113 GM Tube 1 APPLIC TOPICAL ×2 (06:50→18:39)
[2018-05-07 07:07] LABS: Absolute Lymphocyte Count 1.55 X10^3/ul (0.83-4.51); Absolute Neutrophil Count 3.6 X10^3/uL (2.0-7.7); Basophil# 0.01 X10^3/uL; Basophil% 0.2 % (0-1); Eosinophil# 0.55 X10^3/uL; Eosinophils% 8.9 % (0-5); Hematocrit 28.7 % (40-54); Hemoglobin 9.4 g/dl (13.0-16.5); Lymphocyte # 1.55 X10^3/ul (4.0); Lymphocyte % 25.2 % (19-41); Mean Corp Hgb Conc 32.8 g/gl (32-36); Mean Corpuscular Hgb 29.4 pg (27.0-32.0); Mean Corpuscular Volume 89.7 fL (80-94); Mean Platelet Vol. 8.7 fl (6.2-12.0); Monocyte# 0.45 X10^3/uL; Monocyte% 7.3 % (0-10); Neutrophil % 58.4 % (47-70); Platelet Count 205 K/mm3 (150-450); RBC Distribution Width CV 15.2 % (11.6-14.6); RBC Distribution Width SD 49.6 fl (35.1-43.9); White Blood Count 6.2 K/mm3 (4.4-11.0)
[2018-05-07 07:10] LABS: POSITIVE COUNT NO; POSITIVE DIFFERENTIAL NO; POSITIVE MORPHOLOGY NO
[2018-05-07] MEDS: 0.9% Normal Saline 1,000 ML 60 ML IV (07:33)
[2018-05-07 07:37] LABS: Anion Gap 8 (5-15); BUN 23 mg/dL (7-18); BUN/Creat Ratio 19.7 RATIO (10-20); Calcium,Total 9.8 mg/dL (8.5-10.1); Chloride 107 mmol/L (98-107); Creatinine, Serum 1.17 mg/dL (0.70-1.30); EST Glomerular Filtration Rate 64 mL/min (>60); Est Glom Filt Rate - Afr Amer 78 mL/min (>60); Estimated Creatinine Clearance 50.78 ml/min; Glucose 97 mg/dL (74-106); Sodium Level 140 mmol/L (136-145)
[2018-05-07 07:58] VITALS: O2SAT 92
[2018-05-07] MEDS: Aspirin 81 MG TAB.CHEW GT (09:42)
--- NOTE | 2018-05-07 13:30 | NURSING ---
NO to d/c diflucan. family updated.
--- NOTE | 2018-05-07 15:38 | RAD_ITS ---
STUDY: X-RAY - ABDOMEN/PELVIS REASON FOR EXAM: Male, 78 years old. Constipation TECHNIQUE: 2 views of the abdomen were obtained COMPARISON: None. FINDINGS: Calcific density under the right hemidiaphragm seen. Gastrostomy tube noted. Fecal loading of colonic loops. Surgical clips in the left lower quadrant. Bowel gas pattern is nonobstructive and nonspecific. Degenerative changes of the lumbar spine with mild levoconvex curvature IMPRESSION: Nonspecific and nonobstructive bowel gas pattern. Mild fecal loading of colonic loops. Please consider CT examination of this clinical concern for small bowel obstruction Electronically Signed: El Malik, at 17:52 EST Tel , Service support , RAD/Abdomen Single View (Portable)
--- NOTE | 2018-05-07 15:38 | RAD_ITS ---
STUDY: X-RAY CHEST REASON FOR EXAM: Male, 78 years old. . Shortness of breath TECHNIQUE: Single view of the chest was obtained. COMPARISON: May 04, 2018 chest radiograph FINDINGS: Right upper lobe focal airspace disease. Underlying mass is not excluded. Please consider chest CT. Tortuosity of the aorta. Small metallic density in the right cardiophrenic region noted. Which appears similar to previous examination. IMPRESSION: Airspace disease in the right upper lobe with nodular density. Underlying mass is not excluded. Please consider chest CT. Electronically Signed: El Malik, at 17:53 EST Tel , Service support , RAD/Chest 1 View (Portable)
[2018-05-07] MEDS: Acetaminophen 650 MG/20 ML UDC GT (15:39)
[2018-05-07 15:53] VITALS: BP 128/68; PULSE 94; RESP 20; TEMP 37.3; O2SAT 93
--- NOTE | 2018-05-07 19:25 | NURSING ---
Addendum entered by Faye Gonzales 05/08/18 00:45: Pt returned to floor with daughter by bedside Original Note: Dr. Gustafson reviewed xray results. NO to either order CT scan for insurance approval of chest/abdomen/pelvis or send patient to ER for CT scan and work up. Discussed with patient and family. Family would like patient sent down to ER for CT scan and work-up. Report called to JJ Go in ER.
[2018-05-08] MEDS: Atorvastatin Calcium 40 MG Tablet GT ×2 (00:45→21:05)
[2018-05-08] MEDS: Heparin Injection (Vial) 5,000 UNIT/ML VIAL 5000 UNIT SC ×2 (05:07→18:15)
[2018-05-08] MEDS: Menthol/Lanolin/Calamine/Znox 113 GM Tube 1 APPLIC TOPICAL ×2 (05:12→12:22)
[2018-05-08] MEDS: Docusate Sodium 100 MG/10 ML UDC GT ×2 (05:12→18:13)
[2018-05-08] MEDS: Ferrous Sulfate 300 MG/5 ML UDC GT ×2 (05:12→18:14)
[2018-05-08 06:57] VITALS: O2SAT 96
[2018-05-08] MEDS: Aspirin 81 MG TAB.CHEW GT (09:15)
[2018-05-08] MEDS: 0.9% Normal Saline 1,000 ML 60 ML IV (09:19)
--- NOTE | 2018-05-08 11:30 | NURSING ---
ST Tristen in to see pt this am, Pt continues with white thick coating on tongue. Dr Gustafson updated, new order to restart diflucan po daily. family updated.
--- NOTE | 2018-05-08 12:36 | PCM.PN.RX ---
<Rick Zuniga Matilde - Last Filed: 05/08/18 12:36> Progress Note - Pharmacy Subjective: TCU Admission Objective: Allergies famotidine [From Pepcid] Adverse Reaction (Verified 05/07/18 19:47) Low blood pressure metoclopramide [From Reglan] Adverse Reaction (Verified 05/07/18 19:47) Other Current Medications Generic Name Dose Route Start Last Admin Trade Name Freq PRN Reason Stop Dose Admin Acetaminophen 650 mg 05/06/18 15:27 05/07/18 15:39 Tylenol Liquid GT 650 mg Q4H PRN PRN Administration MILD PAIN (1-10) Albuterol/Ipratropium 3 ml 05/07/18 08:55 Duoneb INHALATION Q6HWA.RT PRN SHORTNESS OF BREATH Artificial Tears 1 drop 05/06/18 15:12 Tears Naturale, Artificial Tears EACH EYE Q4H PRN DRY EYES Artificial Tears 1 drop 05/06/18 18:00 05/08/18 05:13 Tears Naturale, Artificial Tears EACH EYE 1 drop BID AMBIKA Administration Aspirin 81 mg 05/07/18 08:00 05/08/18 09:15 Aspirin, Baby GT 81 mg DAILY@0800 AMBIKA Administration Atorvastatin Calcium 40 mg 05/06/18 22:00 05/08/18 00:45 Lipitor GT 40 mg QHS AMBIKA Administration Bisacodyl 10 mg 05/06/18 15:24 Dulcolax RECTAL DAILY PRN Constipation Calamine/Phenol 1 applic 05/06/18 18:00 05/08/18 12:22 Calmoseptine Ointment TOPICAL 1 applicatio BID AMBIKA Administration Protocol Docusate Sodium 100 mg 05/06/18 18:00 05/08/18 05:12 Colace Syrup GT 100 mg BID AMBIKA Administration Ferrous Sulfate 300 mg 05/06/18 18:00 05/08/18 05:12 Ferrous Sulfate Syrup GT 300 mg BID AMBIKA Administration Fluconazole 100 mg 05/08/18 12:00 05/08/18 12:22 Diflucan PO 05/17/18 12:01 100 mg DAILY AMBIKA Administration Heparin Sodium (Porcine) 5,000 unit 05/06/18 18:00 05/08/18 05:07 Heparin Na SC 5,000 unit BID AMBIKA Administration Sodium Chloride 1,000 mls @ 60 mls/hr 05/07/18 07:10 05/08/18 09:19 IV 60 mls/hr .[id number] AMBIKA Administration Lansoprazole 30 mg 05/07/18 06:00 05/08/18 05:12 Prevacid GT 30 mg DAILY AMBIKA Administration Levofloxacin 750 mg 05/08/18 22:00 Levaquin Tablet PO 05/13/18 22:01 DAILY@2200 AMBIKA Melatonin 3 mg 05/06/18 22:00 05/08/18 00:44 Melatonin PO Not Given QHS AMBIKA Non-Formulary Medication 40 ml 05/08/18 12:09 Nut.Sup,Spec,Lac-Free,Iron/Fos GT DAILY AMBIKA Sodium Chloride 5 - 15 ml 05/06/18 18:35 IV UD PRN SALINE FLUSH Problem List (Last Reviewed 05/05/18 @ 17:35 by Abimbola Morris, SHINGLE SHEARING MACHINE OPERATOR-C) Anoxic encephalopathy (Chronic) Vital Signs Temp Pulse Resp BP Pulse Ox 99.2 F H 94 20 H 128/68 H 96 05/07/18 15:53 05/07/18 15:53 05/07/18 15:53 05/07/18 15:53 05/08/18 06:57 Oxygen Delivery Method Room Air Weight: 69 kg Body Mass Index (BMI) 21.7 Finger Stick Blood Glucose 104 Sodium 140 mmol/L (136-145) 05/07/18 06:51 Potassium 4.0 mmol/L (3.5-5.1) 05/07/18 06:51 Chloride 107 mmol/L (98-107) 05/07/18 06:51 Carbon Dioxide 25.0 mmol/L (21.0-32.0) 05/07/18 06:51 Anion Gap 8 (5-15) 05/07/18 06:51 BUN 23 mg/dL (7-18) H 05/07/18 06:51 Creatinine 1.17 mg/dL (0.70-1.30) 05/07/18 06:51 Est GFR (MDRD) Af Amer 78 mL/min (>60) 05/07/18 06:51 Est GFR (MDRD) Non-Af 64 mL/min (>60) 05/07/18 06:51 BUN/Creatinine Ratio 19.7 RATIO (10-20) 05/07/18 06:51 Glucose 97 mg/dL (74-106) 05/07/18 06:51 Assessment/Plan: 1) Pain APAP prn. Continue to monitor prn medication use, daily pain scores. 2) TIA ASA, atorvastatin. Continue to monitor lipids, s/s stroke. 3) GI Lansoprazole daily. Continue to monitor for GI distress. 4) ID Levofloxacin for pna, fluconazole for thrush. Continue to monitor s/s infection. 5) Pulm Duoneb aerosols prn. Continue to monitor prn medication use, for shortness of breath. 6) DVT PPx Heparin sq. Continue to monitor for bleeding/clot. Psychotropic Medications: None Unnecessary Medications: None Bowel Regimen: 7) Docusate, prn bisacodyl. Continue to monitor prn medication use, for constipation/diarrhea. Date of Note:: 05/08/18 - Provider Comments Provider responsibility: Provider responsible to enter orders to implement recommendations <Jh Gustafson Chi - Last Filed: 05/08/18 17:51> Progress Note - Pharmacy Subjective: [] Objective: Allergies famotidine [From Pepcid] Adverse Reaction (Verified 05/07/18 19:47) Low blood pressure metoclopramide [From Reglan] Adverse Reaction (Verified 05/07/18 19:47) Other Current Medications Generic Name Dose Route Start Last Admin Trade Name Freq PRN Reason Stop Dose Admin Acetaminophen 650 mg 05/06/18 15:27 05/07/18 15:39 Tylenol Liquid GT 650 mg Q4H PRN PRN Administration MILD PAIN (1-3/10) Albuterol/Ipratropium 3 ml 05/07/18 08:55 Duoneb INHALATION Q6HWA.RT PRN SHORTNESS OF BREATH Artificial Tears 1 drop 05/06/18 15:12 Tears Naturale, Artificial Tears EACH EYE Q4H PRN DRY EYES Artificial Tears 1 drop 05/06/18 18:00 05/08/18 05:13 Tears Naturale, Artificial Tears EACH EYE 1 drop BID AMBIKA Administration Aspirin 81 mg 05/07/18 08:00 05/08/18 09:15 Aspirin, Baby GT 81 mg DAILY@0800 AMBIKA Administration Atorvastatin Calcium 40 mg 05/06/18 22:00 05/08/18 00:45 Lipitor GT 40 mg QHS AMBIKA Administration Bisacodyl 10 mg 12/01/18 15:24 Dulcolax RECTAL DAILY PRN Constipation Calamine/Phenol 1 applic 05/06/18 18:00 05/08/18 12:22 Calmoseptine Ointment TOPICAL 1 applicatio BID AMBIKA Administration Protocol Docusate Sodium 100 mg 05/06/18 18:00 05/08/18 05:12 Colace Syrup GT 100 mg BID AMBIKA Administration Ferrous Sulfate 300 mg 05/06/18 18:00 05/08/18 05:12 Ferrous Sulfate Syrup GT 300 mg BID AMBIKA Administration Fluconazole 100 mg 05/08/18 12:00 Diflucan PO 05/17/18 12:01 DAILY AMBIKA Heparin Sodium (Porcine) 5,000 unit 05/06/18 18:00 05/08/18 05:07 Heparin Na SC 5,000 unit BID AMBIKA Administration Sodium Chloride 1,000 mls @ 60 mls/hr 05/07/18 07:10 05/08/18 09:19 IV 60 mls/hr .[id number] AMBIKA Administration Lansoprazole 30 mg 05/07/18 06:00 05/08/18 05:12 Prevacid GT 30 mg DAILY AMBIKA Administration Levofloxacin 750 mg 05/08/18 22:00 Levaquin Tablet PO 05/13/18 22:01 DAILY@2200 AMBIKA Melatonin 3 mg 05/06/18 22:00 05/08/18 00:44 Melatonin PO Not Given QHS AMBIKA Non-Formulary Medication 40 ml 05/08/18 12:09 Nut.Sup,Spec,Lac-Free,Iron/Fos GT DAILY AMBIKA Sodium Chloride 5 - 15 ml 05/06/18 18:35 IV UD PRN SALINE FLUSH Problem List (Last Reviewed 05/05/18 @ 17:35 by Abimbola Morris, SHINGLE SHEARING MACHINE OPERATOR-C) Anoxic encephalopathy (Chronic) Vital Signs Temp Pulse Resp BP Pulse Ox 99.2 F H 94 16 149/56 H 94 05/08/18 15:59 05/08/18 15:59 05/08/18 15:59 05/08/18 15:59 05/08/18 15:59 Oxygen Delivery Method Room Air Weight: 69 kg Body Mass Index (BMI) 21.7 Finger Stick Blood Glucose 104 Sodium 140 mmol/L (136-145) 05/07/18 06:51 Potassium 4.0 mmol/L (3.5-5.1) 05/07/18 06:51 Chloride 107 mmol/L (98-107) 05/07/18 06:51 Carbon Dioxide 25.0 mmol/L (21.0-32.0) 05/07/18 06:51 Anion Gap 8 (5-15) 05/07/18 06:51 BUN 23 mg/dL (7-18) H 05/07/18 06:51 Creatinine 1.17 mg/dL (0.70-1.30) 05/07/18 06:51 Est GFR (MDRD) Af Amer 78 mL/min (>60) 05/07/18 06:51 Est GFR (MDRD) Non-Af 64 mL/min (>60) 05/07/18 06:51 BUN/Creatinine Ratio 19.7 RATIO (10-20) 05/07/18 06:51 Glucose 97 mg/dL (74-106) 05/07/18 06:51 Assessment/Plan: Psychotropic Medications: Unnecessary Medications: Bowel Regimen: - Provider Comments Provider responsibility: Provider responsible to enter orders to implement recommendations Provider Comments to Recommendations by Pharmacy: Agree
[2018-05-08 15:59] VITALS: BP 149/56; PULSE 94; RESP 16; TEMP 37.3; O2SAT 94
--- NOTE | 2018-05-08 18:34 | NURSING ---
Family concerned about adding Diflucan to resident medications as he is fragile and we are concerned about his kidney function. Dr Gustafson aware aware and does not feel like resident tongue contains thrush. He wants us to discontinue Diflucan and do good oral care instead.
[2018-05-08] MEDS: MELATONIN 3 MG TABLET PO (21:05)
[2018-05-08] MEDS: levoFLOXacin 750 MG Tablet PO (21:05)
[2018-05-08 21:35] VITALS: PULSE 97; RESP 18
[2018-05-08] MEDS: Ipratropium/Albuterol Sulfate 3 ML AMPUL.NEB INHALATION (21:35)
[2018-05-09] MEDS: 0.9% Normal Saline 1,000 ML 60 ML IV ×2 (02:40→17:34)
[2018-05-09] MEDS: Heparin Injection (Vial) 5,000 UNIT/ML VIAL 5000 UNIT SC ×2 (06:08→17:20)
[2018-05-09] MEDS: Ferrous Sulfate 300 MG/5 ML UDC GT (06:08)
[2018-05-09] MEDS: Docusate Sodium 100 MG/10 ML UDC GT (06:08)
[2018-05-09] MEDS: Menthol/Lanolin/Calamine/Znox 113 GM Tube 1 APPLIC TOPICAL ×2 (06:09→17:19)
[2018-05-09 06:32] VITALS: BP 132/85; PULSE 97
[2018-05-09 06:46] LABS: Bedside Glucose 102 mg/dL (70-110)
[2018-05-09] MEDS: Aspirin 81 MG TAB.CHEW GT (09:15)
[2018-05-09] MEDS: 0.9% NaCl Peripheral Flush Adult/Peds IV (09:24)
[2018-05-09] MEDS: Acetaminophen 650 MG/20 ML UDC GT (09:24)
[2018-05-09 16:00] VITALS: BP 154/87; PULSE 92; RESP 18; TEMP 36.1; O2SAT 98
[2018-05-09] MEDS: Docusate Sodium 100 MG/10 ML UDC PO (17:19)
[2018-05-09] MEDS: Ferrous Sulfate 300 MG/5 ML UDC PO (17:19)
[2018-05-09] MEDS: Atorvastatin Calcium 40 MG Tablet PO (21:30)
[2018-05-09] MEDS: levoFLOXacin 750 MG Tablet PO (21:30)
[2018-05-09] MEDS: MELATONIN 3 MG TABLET PO (21:30)
[2018-05-10] MEDS: Ferrous Sulfate 300 MG/5 ML UDC PO ×2 (06:35→17:53)
[2018-05-10] MEDS: Menthol/Lanolin/Calamine/Znox 113 GM Tube 1 APPLIC TOPICAL ×2 (06:35→17:52)
[2018-05-10] MEDS: Docusate Sodium 100 MG/10 ML UDC PO ×2 (06:35→17:53)
[2018-05-10] MEDS: Heparin Injection (Vial) 5,000 UNIT/ML VIAL 5000 UNIT SC ×2 (06:36→17:54)
[2018-05-10 06:55] LABS: Bedside Glucose 101 mg/dL (70-110)
[2018-05-10] MEDS: Aspirin 81 MG TAB.CHEW PO (08:48)
[2018-05-10] MEDS: Ipratropium/Albuterol Sulfate 3 ML AMPUL.NEB INHALATION (09:10)
[2018-05-10] MEDS: 0.9% Normal Saline 1,000 ML 60 ML IV (11:09)
--- NOTE | 2018-05-10 14:56 | NURSING ---
Was asked to see patient for excess drainage from the old trach site. JJ Gracia states that he had just changed the dressing and there was not much drainage noted. no signs of infection noted. will monitor as needed.
[2018-05-10 15:35] VITALS: BP 120/76; PULSE 98; RESP 20; TEMP 36.1; O2SAT 98
--- NOTE | 2018-05-10 16:24 | CASEMGMT ---
Team meeting held today with pt, spouse and three children present. Pt is progressing with therapy. No d/c date set at this time. Pt would like to return home with his if possible at time of d/c. Family does live close to pt and . Will continue with treatment plan at this time. ANNA Broussard
--- NOTE | 2018-05-10 16:28 | CHAPLAIN ---
Type of Pastoral Visit _x__ Initial Visit ___ Follow-up Visit ___ On-call Visit ___ General Patient Visit ___ Spiritual Assessment ___ Family Conference ___ Bereavement ___ Rapid Response ___ Code Blue ___ Other (describe below) Pastoral Care Referral From _x__ Patient _x__ Family ___ Nurse ___ Physician ___ Radiological Defense Officer ___ Apartment Coordinator ___ Other (describe below) Sacrament/Intervention ___ Active listening ___ Anointing ___ Religion ___ Bereavement ___ Communion ___ Abby exploration ___ ___ Life review ___ Prayer ___ Reconciliation ___ Sacrament of Sick ___ Supportive presence ___ Wedding _x__ Other (describe below) Pastoral Comments talked with daughter about support; daughter said pt would absolutely want spiritual care but that today he is worn out from many activities; request is for agent broker to visit at another time; support offered to daughter as well
[2018-05-10 16:47] VITALS: PULSE 94; RESP 18; O2SAT 99
[2018-05-10 20:52] VITALS: BP 113/96; PULSE 100
[2018-05-10] MEDS: MELATONIN 3 MG TABLET PO (20:53)
[2018-05-10] MEDS: Atorvastatin Calcium 40 MG Tablet PO (20:53)
[2018-05-10] MEDS: levoFLOXacin 750 MG Tablet PO (20:53)
[2018-05-10 22:17] VITALS: BP 139/83; PULSE 91; O2SAT 98
[2018-05-11] MEDS: 0.9% Normal Saline 1,000 ML 60 ML IV ×2 (03:13→20:42)
[2018-05-11] MEDS: Docusate Sodium 100 MG/10 ML UDC PO ×2 (06:04→18:04)
[2018-05-11] MEDS: Ferrous Sulfate 300 MG/5 ML UDC PO ×2 (06:05→18:04)
[2018-05-11] MEDS: Heparin Injection (Vial) 5,000 UNIT/ML VIAL 5000 UNIT SC ×2 (06:12→18:06)
[2018-05-11] MEDS: Menthol/Lanolin/Calamine/Znox 113 GM Tube 1 APPLIC TOPICAL ×2 (06:16→18:00)
[2018-05-11 06:46] LABS: Bedside Glucose 107 mg/dL (70-110)
[2018-05-11 07:02] VITALS: O2SAT 98
[2018-05-11] MEDS: Aspirin 81 MG TAB.CHEW PO (08:20)
--- NOTE | 2018-05-11 14:24 | MDS.RN ---
Pain interview for celeste 05/13/18 completed.
[2018-05-11 16:00] VITALS: BP 103/60; PULSE 98; RESP 18; TEMP 36.6; O2SAT 97
[2018-05-11] MEDS: 0.9% NaCl Peripheral Flush Adult/Peds IV (20:51)
[2018-05-11] MEDS: levoFLOXacin 750 MG Tablet PO (21:25)
[2018-05-11] MEDS: MELATONIN 3 MG TABLET PO (21:25)
[2018-05-11] MEDS: Atorvastatin Calcium 40 MG Tablet PO (21:26)
[2018-05-11 22:06] VITALS: BP 101/54; PULSE 94; TEMP 37; O2SAT 94
--- NOTE | 2018-05-11 22:42 | NURSING ---
Patient c/o just not feeling right. Patient c/o discomfort in abdomen. Upon assessment there is noted to be a 2 cm bump on upper right quadrant of abdomen which has not been previously noted. No redness or bruising noted. Dr. Gustafson notified. Orders given for ct scan of abdomen/pelvic with contrast. Family and patient aware of new order.
[2018-05-12] MEDS: Docusate Sodium 100 MG/10 ML UDC PO ×2 (06:12→18:24)
[2018-05-12] MEDS: Ferrous Sulfate 300 MG/5 ML UDC PO ×2 (06:12→18:24)
[2018-05-12] MEDS: Heparin Injection (Vial) 5,000 UNIT/ML VIAL 5000 UNIT SC ×2 (06:13→18:32)
[2018-05-12] MEDS: Menthol/Lanolin/Calamine/Znox 113 GM Tube 1 APPLIC TOPICAL ×3 (06:16→18:28)
[2018-05-12 06:33] VITALS: O2SAT 98
[2018-05-12 07:01] LABS: Bedside Glucose 100 mg/dL (70-110)
--- NOTE | 2018-05-12 08:37 | NURSING ---
Dr. Gustafson in to see patient and reviewed CAT scan. NO for soap suds enema x1 and provide prune juice daily.
[2018-05-12] MEDS: Aspirin 81 MG TAB.CHEW PO (08:59)
--- NOTE | 2018-05-12 11:12 | NURSING ---
Dr. Gustafson reviewed CT scan results, NO for soap suds enema x1. Family aware.
--- NOTE | 2018-05-12 12:04 | NURSING ---
Soap suds enema given with large, firm results. Stool had dark green to brown color. Pt tolerated well.
[2018-05-12] MEDS: 0.9% Normal Saline 1,000 ML 60 ML IV (14:28)
[2018-05-12 16:00] VITALS: BP 126/62; PULSE 87; RESP 18; TEMP 36.3; O2SAT 98
[2018-05-12] MEDS: Atorvastatin Calcium 40 MG Tablet PO (23:02)
[2018-05-12] MEDS: levoFLOXacin 750 MG Tablet PO (23:02)
[2018-05-12] MEDS: MELATONIN 3 MG TABLET PO (23:02)
[2018-05-12] MEDS: 0.9% NaCl Peripheral Flush Adult/Peds IV (23:37)
[2018-05-13] MEDS: 0.9% Normal Saline 1,000 ML 60 ML IV ×2 (05:10→21:26)
[2018-05-13] MEDS: Heparin Injection (Vial) 5,000 UNIT/ML VIAL 5000 UNIT SC ×2 (05:34→17:50)
[2018-05-13] MEDS: Ferrous Sulfate 300 MG/5 ML UDC PO ×2 (05:39→17:52)
[2018-05-13] MEDS: Docusate Sodium 100 MG/10 ML UDC PO ×2 (05:39→17:52)
[2018-05-13 06:51] LABS: Bedside Glucose 101 mg/dL (70-110)
[2018-05-13] MEDS: Aspirin 81 MG TAB.CHEW PO (08:51)
[2018-05-13 16:00] VITALS: BP 155/91; PULSE 92; RESP 20; TEMP 35.9; O2SAT 98
[2018-05-13] MEDS: Menthol/Lanolin/Calamine/Znox 113 GM Tube 1 APPLIC TOPICAL (17:57)
[2018-05-13] MEDS: levoFLOXacin 750 MG Tablet PO (21:30)
[2018-05-13] MEDS: MELATONIN 3 MG TABLET PO (21:31)
[2018-05-13] MEDS: Atorvastatin Calcium 40 MG Tablet PO (21:31)
[2018-05-13] MEDS: Acetaminophen 650 MG/20 ML UDC GT (23:21)
[2018-05-14] MEDS: Ferrous Sulfate 300 MG/5 ML UDC PO ×2 (05:29→17:39)
[2018-05-14] MEDS: Docusate Sodium 100 MG/10 ML UDC PO ×2 (05:29→17:38)
[2018-05-14] MEDS: Heparin Injection (Vial) 5,000 UNIT/ML VIAL 5000 UNIT SC ×2 (05:35→17:39)
[2018-05-14] MEDS: Menthol/Lanolin/Calamine/Znox 113 GM Tube 1 APPLIC TOPICAL ×2 (05:37→17:39)
[2018-05-14 05:59] LABS: Absolute Lymphocyte Count 1.52 X10^3/ul (0.83-4.51); Absolute Neutrophil Count 3.3 X10^3/uL (2.0-7.7); Basophil# 0.01 X10^3/uL; Basophil% 0.2 % (0-1); Eosinophils% 7.1 % (0-5); Hematocrit 28.6 % (40-54); Hemoglobin 9.2 g/dl (13.0-16.5); Lymphocyte # 1.52 X10^3/ul (4.0); Lymphocyte % 26.9 % (19-41); Mean Corp Hgb Conc 32.2 g/gl (32-36); Mean Corpuscular Hgb 29.5 pg (27.0-32.0); Mean Corpuscular Volume 91.7 fL (80-94); Mean Platelet Vol. 9.3 fl (6.2-12.0); Monocyte# 0.46 X10^3/uL; Monocyte% 8.1 % (0-10); Neutrophil # 3.25 X10^3/uL (2.7-7.7); Neutrophil % 57.5 % (47-70); Platelet Count 220 K/mm3 (150-450); RBC Distribution Width SD 48.9 fl (35.1-43.9); Red Blood Count 3.12 M/mm3 (4.6-6.2); White Blood Count 5.7 K/mm3 (4.4-11.0)
[2018-05-14 06:00] LABS: POSITIVE COUNT NO; POSITIVE DIFFERENTIAL NO; POSITIVE MORPHOLOGY NO
[2018-05-14 06:26] LABS: Anion Gap 9 (5-15); BUN 29 mg/dL (7-18); BUN/Creat Ratio 22.5 RATIO (10-20); Calcium,Total 9.7 mg/dL (8.5-10.1); Chloride 106 mmol/L (98-107); Creatinine, Serum 1.29 mg/dL (0.70-1.30); EST Glomerular Filtration Rate 57 mL/min (>60); Est Glom Filt Rate - Afr Amer 69 mL/min (>60); Estimated Creatinine Clearance 46.86 ml/min; Glucose 99 mg/dL (74-106); Sodium Level 139 mmol/L (136-145)
[2018-05-14 06:51] LABS: Bedside Glucose 92 mg/dL (70-110)
[2018-05-14] MEDS: Aspirin 81 MG TAB.CHEW PO (09:26)
--- NOTE | 2018-05-14 10:52 | NURSING ---
Addendum entered by Meg Canela 05/14/18 12:30: N.O. discussed with son and , son requesting to speak with sister and speech therapy before tube feed is changed to nocturnal only. Dieticians note reviewed with pt's son. Son requesting pt be weighed today. Reported to JJ Edgar. Original Note: per peanut picker recommendation, ok to change Tube feeds to noctural run 12 hrs. Pt & Family updated.
[2018-05-14 12:16] LABS: Bedside Glucose 122 mg/dL (70-110)
[2018-05-14 12:17] VITALS: BP 96/54; PULSE 70; RESP 20; TEMP 36.8; O2SAT 96
[2018-05-14 12:21] VITALS: PULSE 70; O2SAT 96
[2018-05-14 15:47] VITALS: BP 124/78; PULSE 84; RESP 18; TEMP 36; O2SAT 97
[2018-05-14] MEDS: 0.9% Normal Saline 1,000 ML 60 ML IV (15:48)
--- NOTE | 2018-05-14 17:54 | NURSING ---
PT HAVING DIAPHORETIC EPISODES TODAY, MORE THAN HIS USUAL. SEEMS TO HAPPEN WHEN PT HOB IS RAISED, OR LOWERED AND WHEN NEEDS TO VOID. VITALS STABLE. FAMILY AT BEDSIDE. DR TENORIO NOTIFIED, NO NEW ORDERS CONTINUE TO MONITOR.
[2018-05-14 20:23] VITALS: BP 108/67; PULSE 96; RESP 18; TEMP 36.5; O2SAT 97
[2018-05-14 20:30] LABS: Bedside Glucose 99 mg/dL (70-110)
[2018-05-14] MEDS: Atorvastatin Calcium 40 MG Tablet PO (21:44)
[2018-05-15] MEDS: Bisacodyl 10 MG Suppository RECTAL (00:04)
[2018-05-15] MEDS: Heparin Injection (Vial) 5,000 UNIT/ML VIAL 5000 UNIT SC ×2 (05:15→17:13)
[2018-05-15] MEDS: Docusate Sodium 100 MG/10 ML UDC PO (05:15)
[2018-05-15] MEDS: Ferrous Sulfate 300 MG/5 ML UDC PO ×2 (05:15→17:13)
[2018-05-15] MEDS: Menthol/Lanolin/Calamine/Znox 113 GM Tube 1 APPLIC TOPICAL ×2 (05:16→17:14)
[2018-05-15 06:46] LABS: Bedside Glucose 98 mg/dL (70-110)
[2018-05-15 07:00] VITALS: O2SAT 97
--- NOTE | 2018-05-15 08:09 | NURSING ---
No to d/c colace and start miralax daily and senokot BID. Patient and family updated.
[2018-05-15] MEDS: 0.9% Normal Saline 1,000 ML 60 ML IV (09:39)
[2018-05-15] MEDS: Aspirin 81 MG TAB.CHEW PO (09:40)
[2018-05-15 16:00] VITALS: BP 137/66; PULSE 95; RESP 16; TEMP 36.4; O2SAT 98
[2018-05-15] MEDS: Senna/Docusate Sodium 1 Tablet 2 TABLET PO (17:13)
--- NOTE | 2018-05-15 17:47 | NURSING ---
S.T. CONCERNED ABOUT COATING ON TONGUE. DR. TENORIO NOTIFIED, MONITOR.
--- NOTE | 2018-05-15 18:00 | NURSING ---
Speech therapy has concerns about discoloration and coating on patient's tongue. Dr. Gustafson updated. Continue to monitor and provide good oral care d/t nystatin and chlorahexadine being ineffective.
[2018-05-15] MEDS: MELATONIN 3 MG TABLET PO (20:19)
[2018-05-15] MEDS: Atorvastatin Calcium 40 MG Tablet PO (20:22)
[2018-05-16] MEDS: 0.9% Normal Saline 1,000 ML 60 ML IV ×2 (02:32→19:06)
[2018-05-16] MEDS: Acetaminophen 650 MG/20 ML UDC GT (02:39)
[2018-05-16] MEDS: Ferrous Sulfate 300 MG/5 ML UDC PO ×2 (06:13→17:54)
[2018-05-16] MEDS: Polyethylene Glycol 3350 17 GM PACKET PO (06:13)
[2018-05-16] MEDS: Senna/Docusate Sodium 1 Tablet 2 TABLET PO ×2 (06:13→17:54)
[2018-05-16] MEDS: Heparin Injection (Vial) 5,000 UNIT/ML VIAL 5000 UNIT SC ×2 (06:18→17:54)
[2018-05-16] MEDS: Menthol/Lanolin/Calamine/Znox 113 GM Tube 1 APPLIC TOPICAL ×2 (06:18→18:02)
[2018-05-16 06:46] LABS: Bedside Glucose 99 mg/dL (70-110)
[2018-05-16] MEDS: Aspirin 81 MG TAB.CHEW PO (07:35)
[2018-05-16 11:55] VITALS: BP 136/50; PULSE 92
[2018-05-16 15:52] VITALS: BP 145/86; PULSE 99; RESP 18; TEMP 36.6; O2SAT 96
[2018-05-16] MEDS: Atorvastatin Calcium 40 MG Tablet PO (20:34)
[2018-05-17] MEDS: Ferrous Sulfate 300 MG/5 ML UDC PO ×2 (06:20→17:34)
[2018-05-17] MEDS: Senna/Docusate Sodium 1 Tablet 2 TABLET PO ×2 (06:21→17:34)
[2018-05-17] MEDS: Heparin Injection (Vial) 5,000 UNIT/ML VIAL 5000 UNIT SC ×2 (06:28→17:35)
[2018-05-17] MEDS: Nystatin Powder 15gm Bottle 1 APPLIC TOPICAL ×2 (06:28→21:35)
[2018-05-17] MEDS: Polyethylene Glycol 3350 17 GM PACKET PO (06:28)
[2018-05-17] MEDS: Menthol/Lanolin/Calamine/Znox 113 GM Tube 1 APPLIC TOPICAL ×2 (06:28→21:16)
[2018-05-17 07:06] LABS: Bedside Glucose 113 mg/dL (70-110)
[2018-05-17] MEDS: Aspirin 81 MG TAB.CHEW PO (08:18)
[2018-05-17] MEDS: 0.9% Normal Saline 1,000 ML 60 ML IV (13:30)
[2018-05-17 15:07] VITALS: BP 120/64; PULSE 95; RESP 24; TEMP 36.6; O2SAT 99
[2018-05-17 15:46] VITALS: PULSE 100
--- NOTE | 2018-05-17 15:55 | CASEMGMT ---
Social Work Spoke with resident and resident family in room. This social worker aide communicating that discharge date has been set for 06/01/18 and that current recommendation would be for resident to transition to an extended care facility. Resident and resident family voicing understanding and planning to discuss further whether or not the family is wanting to transition to another facility or attempt to manage resident needs within the home. Resident and resident family aware that resident will needed 24hr care within the home at time of discharge. This social worker aide providing resident family with list of facilities both in [facility] and [facility] per resident family request. Will continue to follow. ARNULFO MicheleW, SHOE MAKER
--- NOTE | 2018-05-17 17:52 | NURSING ---
Resident sleepy today as observed by this RN and his family. Urinates in urinal and noted small amount of blood in attends and in urine. Dr larson aware and order to get straight cath urine specimen. Will update JJ Gracia and residents family.
--- NOTE | 2018-05-18 03:38 | NURSING ---
UA and culture collected via clean catch. Pt is incontinent at times and goes small amounts at a time. Pt was bladder scanned earlier at 0130 for 14.
[2018-05-18 03:40] LABS: Bacteria 0 SEEN /hpf (None Seen); Mucous, Urine 0 SEEN /hpf (<or=2+); Red Blood Cells-Urine 0 SEEN /hpf (0-5); White Blood Cells 0 SEEN /hpf (0-5)
[2018-05-18 03:48] LABS: Color, Urine Yellow (Yellow); Glucose, Dipstick Normal (Normal); Ketone-Dipstick Negative (Negative); Leukocyte Esterase-Dipstick Negative /ul (Negative); Nitrite-Dipstick Negative (Negative); Occult Blood-Urine Negative /ul (Negative); Protein-Dipstick Negative (Negative); Urine Bilirubin Dipstick Negative (Negative); Urine Clarity Clear (Clear); Urine Urobilinogen Normal (Normal)
[2018-05-18 03:55] LABS: Squamous Epithelial Cells - UA 0-5 SEEN /hpf (0-5)
[2018-05-18] MEDS: 0.9% Normal Saline 1,000 ML 60 ML IV ×2 (05:45→21:01)
[2018-05-18] MEDS: Menthol/Lanolin/Calamine/Znox 113 GM Tube 1 APPLIC TOPICAL ×2 (06:00→17:54)
[2018-05-18 06:56] LABS: Bedside Glucose 93 mg/dL (70-110)
[2018-05-18] MEDS: Heparin Injection (Vial) 5,000 UNIT/ML VIAL 5000 UNIT SC ×2 (08:33→18:08)
[2018-05-18] MEDS: Aspirin 81 MG TAB.CHEW PO (08:33)
[2018-05-18] MEDS: Senna/Docusate Sodium 1 Tablet 2 TABLET PO ×2 (08:33→17:55)
[2018-05-18] MEDS: Ferrous Sulfate 300 MG/5 ML UDC PO ×2 (08:33→17:55)
[2018-05-18] MEDS: Polyethylene Glycol 3350 17 GM PACKET PO (08:34)
[2018-05-18] MEDS: Nystatin Powder 15gm Bottle 1 APPLIC TOPICAL ×2 (08:46→21:04)
--- NOTE | 2018-05-18 13:02 | CASEMGMT ---
Brief interview for mental status (BIMS) and resident mood interview (PHQ-9) completed on this day. BIMS score 15. PHQ-9 score 08/02
--- NOTE | 2018-05-18 13:24 | MDS.RN ---
Information for the mds was obtained from review of the clinical record, interview of resident, staff, and direct observation of resident's care.
[2018-05-18 15:51] VITALS: BP 109/55; PULSE 85; RESP 18; TEMP 37.3; O2SAT 94
--- NOTE | 2018-05-18 17:52 | NURSING ---
Dr Gustafson notified of pt with flushing of face, beads of sweat on chest, arms, legs & forhead. Dr gustafson in to assess, no new orders. daughter and son at bedside. linens and gown changed, pt incont of urine. Changed and repositioned for supper.
--- NOTE | 2018-05-18 21:32 | TREXTCAR_ITS ---
- Diet 05/07/18 10:45 Diet: Regular Diet Food consistency:: Mechanical Soft/Ground Liquid Consistency:: [place] Thick Dietary Modifications:: [place] Thick Liquids Mechanical Soft Diet Type of Dietary Supplement:: Ensure Clear Is pt able to select menu?: No Diet Comments: BUILT UP UTENSILS-supervised meals-puree sides if pt/malachi reyes-prune juice - Routine Orders/Code Status Suppository Type: Dulcolax 10mg Suppository Frequency: Daily PRN Code Status: Full Code - Wound(s) Old trach site Wound Type: healing wound Dressing Change: Dry Sterile Dressing Bilateral heels Wound Type: blanchable redness Dressing Change: Mepilex 05/07 - Therapies Weight Bearing: Weight bearing as tolerated Extremity Affected:: Bilateral Lower Physical Therapy: Eval and Treat Occupational Therapy: Eval and Treat Speech Therapy: Eval and Treat - Problem/Diagnosis (1) Anoxic encephalopathy Status: Chronic Current Visit: Yes (2) TIA (transient ischemic attack) Status: Acute Current Visit: No (3) Abdominal aortic aneurysm, ruptured Status: Chronic Comment: 01/11/2018 Current Visit: No (4) Hyperlipidemia Status: Chronic Current Visit: No (5) Iron deficiency anemia Status: Chronic Current Visit: No (6) GERD (gastroesophageal reflux disease) Status: Chronic Current Visit: No (7) Dysphagia Status: Chronic Current Visit: No (8) Coronary artery disease Status: Chronic Current Visit: No (9) Hypertension Status: Chronic Current Visit: No - Allergies/Procedures Done in Hospital Allergies/Adverse Reactions: Allergies famotidine [From Pepcid] Adverse Reaction (Verified 05/07/18 19:47) Low blood pressure metoclopramide [From Reglan] Adverse Reaction (Verified 05/07/18 19:47) Other - Type of Care/Length of Stay Estimated LOS: More Than 30 Days Type of Care Needed: Skilled Rehab Potential: Poor Prognosis: Poor - Additional Orders/Day of Discharge Day of Discharge: 06/01/18 - Dietary and Speech Recommendations Dietitian Recommendations/Changes: Will continue to offer magic cup ice cream with meals for increased nutrition if consumed. As long as po intake CON SISTENTLY improved, rec change to 12 hour nocturnal feedings at 40 cc/hr w/ 50 cc H2O flush every 4 hours to provide ~ 960 braxton / 40 gm pro/day. - Follow Up Care Primary Care Physician: Jack Olmedo MD [Primary Care Provider] - Please follow up with your Primary Care Physician in: 1 week. Please Follow Up With: Abdullahi Styles MD When: 2-3 weeks Please Follow Up With: [facility] SCAN HERE AT [facility]
--- NOTE | 2018-05-18 21:32 | PCM.DC.SUM ---
Discharge Date and Diagnosis Date of Admission: 05/06/18 Date of Discharge: 06/01/18 - Secondary Discharge Diagnosis Chronic Problems (Last Reviewed 05/05/18 @ 17:35 by RICA Rosenberg) Malnutrition (Chronic) Anoxic encephalopathy (Chronic) Abdominal aortic aneurysm, ruptured (Chronic) 01/11/2018 Hyperlipidemia (Chronic) Iron deficiency anemia (Chronic) GERD (gastroesophageal reflux disease) (Chronic) Dysphagia (Chronic) Anemia (Chronic) Vasovagal syndrome (Chronic) Coronary artery disease (Chronic) Coronary artery disease (Chronic) Hypertension (Chronic) Hospital Course and Treatment Imaging Results: 05/07/18 10:45 Diet: Regular Diet Food consistency:: Mechanical Soft/Ground Liquid Consistency:: Lane Thick Dietary Modifications:: Lane Thick Liquids Mechanical Soft Diet Type of Dietary Supplement:: Ensure Clear Is pt able to select menu?: No Diet Comments: BUILT UP UTENSILS-supervised meals-puree sides if pt/fam reqst-prune juice Clinical Impression(s) from Imaging Studies Chest X-Ray 05/07/18 15:38 KUB X-Ray 05/07/18 15:38 Labs (Last 48 Hours) 05/17/18 05/18/18 05/18/18 06:41 03:20 06:51 Urine Color Yellow Urine Clarity Clear Urine pH 7.0 Ur Specific [place] 1.010 Urine Protein Negative Urine Glucose (UA) Normal Urine Ketones Negative Urine Occult Blood Negative Urine Nitrite Negative Urine Bilirubin Negative Urine Urobilinogen Normal Ur Leukocyte Esterase Negative Urine RBC 0 SEEN Urine WBC 0 SEEN Ur Squamous Epith Cells 0-5 SEEN Urine Bacteria 0 SEEN Urine Mucus 0 SEEN POC Glucose 113 H 93 Consultations 05/09/18 04:41 Consult: Onc/Wound/public health microbiologist Routine Comment: Reason for Consult:: Trach removed 04/16, not healed, increased drainage Operations: None Procedures: None Summary of Care Provided: The patient is a 78 year old Male with below past medical history significant for recent emergent ruptured AAA repair, hospitalized for stroke symptoms, diagnosed with TIA superimposed on encephalopathy, admitted to TCU with debility, here for rehabilitation, strengthening, prior to disposition determination. Resident had trach, recently decannulated. He has PEG with Tubefeeding, but he is eating and trying to increase oral intake. Resident has been having diaphoretic episodes with urination, I believe it is autonomic dysfunction secondary to anoxic encephalopathy from ruptured AAA. My plan has been reassurance. Family does not want any unnecessary medications. Discharge to [facility], Skilled for PT/OT/ST. - Physical Exam Vital Signs Temp Pulse Resp BP Pulse Ox 99.2 F H 85 18 109/55 L 94 05/18/18 15:51 05/18/18 15:51 05/18/18 15:51 05/18/18 15:51 05/18/18 15:51 Oxygen Delivery Method Room Air Weight: 71.327 kg Body Mass Index (BMI) 21.7 Finger Stick Blood Glucose 104 Intake and Output for Last 24 Hours 05/16/18 05/17/18 05/18/18 23:59 23:59 23:59 Intake Total 460 / 460 3352 / 3352 1711 / 1711 Balance 460 / 460 3352 / 3352 1711 / 1711 Laboratory Tests Past 24 Hrs 05/18/18 03:20 Urine Color Yellow Urine Clarity Clear Urine pH 7.0 Ur Specific [place] 1.010 Urine Protein Negative Urine Glucose (UA) Normal Urine Ketones Negative Urine Occult Blood Negative Urine Nitrite Negative Urine Bilirubin Negative Urine Urobilinogen Normal Ur Leukocyte Esterase Negative Urine RBC 0 SEEN Urine WBC 0 SEEN Ur Squamous Epith Cells 0-5 SEEN Urine Bacteria 0 SEEN Urine Mucus 0 SEEN POC Glucose 05/18/18 06:51 POC Glucose 93 Discharge Diet: No Restrictions, - - Mechanical Soft, Lane thick. Discharge Activity: Return to Normal Activity, Use Walker Weight Bearing Status: Weight bearing as tolerated Call your doctor if you observe: Fever of 101 or Higher, Inability to urinate, Inability to have a bowel movement, Shortness of breath, Chest pain, Uncontrolled pain Home Medications: Medications to take at Discharge Ferrous Sulfate Syrup 300 mg GT BID 03/28/18 Heparin Injection 5,000 units SUBCUT BID 03/28/18 Lansoprazole [Prevacid] 30 mg GT DAILY 03/28/18 Acetaminophen Liquid [Tylenol Liquid] 650 mg GT Q4H PRN PRN 05/05/18 Melatonin 3 mg PO QHS 05/05/18 Menthol/Lanolin/Calamine/Znox [Calmoseptine Ointment] 1 applic TOPICAL BID 05/05/18 Nut.sup,Spec,Lac-Free,Iron/Fos [Twocal Hn Liquid] 40 ml GT DAILY 05/05/18 Polyvinyl Alcohol [Artificial Tears] 1 drop OP Q4H PRN PRN 05/05/18 Aspirin [Aspirin, Baby] 81 mg GT DAILY@0800 05/06/18 Atorvastatin Calcium [Lipitor] 40 mg GT QHS 05/06/18 Bisacodyl [Dulcolax] 10 mg RECTAL DAILY PRN suppos. 05/18/18 Ipratropium/Albuterol Sulfate [Duoneb] 3 ml INHALATION Q6HWA.RT PRN ampul.neb 05/18/18 Nystatin Powder [Mycostatin Powder] 1 applic TOPICAL 0600,2200 bottle 05/18/18 Polyethylene Glycol 3350 [Miralax] 17 gm PO DAILY packet 05/18/18 Senna/Docusate Sodium [Senokot-S] 2 tablet PO BID tablet 05/18/18 Sodium Chloride 0.65% [[place] Nasal [place]] 2 spray NASAL BID PRN PRN spray.btl 05/18/18 Primary Care Physician: Jack Olmedo MD [Primary Care Provider] - Please follow up with your Primary Care Physician in: 1 week. Please Follow Up With: Abdullahi Styles MD When: 2-3 weeks Please Follow Up With: PET SCAN HERE AT [facility] Disposition: Longterm facility Minutes spent on discharge:: 35 Patient Condition:: Stable - Yuan tends to have minor changes in condition every other day, most episodes can be managed with reassurance, family very involved but reasonable. Medical Necessity - Tobacco Use Smoking Status: Never smoker Tobacco Use: Non-smoker Meaningful Use Info Meaningful Use Diagnoses (Choose all that apply): None applicable
--- NOTE | 2018-05-18 21:37 | DS.PCM_ITS ---
Discharge Date and Diagnosis Date of Admission: 05/06/18 Date of Discharge: 06/01/18 - Secondary Discharge Diagnosis Chronic Problems (Last Reviewed 05/05/18 @ 17:35 by RICA Rosenberg) Malnutrition (Chronic) Anoxic encephalopathy (Chronic) Abdominal aortic aneurysm, ruptured (Chronic) 01/11/2018 Hyperlipidemia (Chronic) Iron deficiency anemia (Chronic) GERD (gastroesophageal reflux disease) (Chronic) Dysphagia (Chronic) Anemia (Chronic) Vasovagal syndrome (Chronic) Coronary artery disease (Chronic) Coronary artery disease (Chronic) Hypertension (Chronic) Hospital Course and Treatment Imaging Results: 05/07/18 10:45 Diet: Regular Diet Food consistency:: Mechanical Soft/Ground Liquid Consistency:: [place] Thick Dietary Modifications:: [place] Thick Liquids Mechanical Soft Diet Type of Dietary Supplement:: Ensure Clear Is pt able to select menu?: No Diet Comments: BUILT UP UTENSILS-supervised meals-puree sides if pt/fam reqst-prune juice Clinical Impression(s) from Imaging Studies Chest X-Ray 05/07/18 15:38 KUB X-Ray 05/07/18 15:38 Labs (Last 48 Hours) 05/17/18 05/18/18 05/18/18 06:41 03:20 06:51 Urine Color Yellow Urine Clarity Clear Urine pH 7.0 Ur Specific [place] 1.010 Urine Protein Negative Urine Glucose (UA) Normal Urine Ketones Negative Urine Occult Blood Negative Urine Nitrite Negative Urine Bilirubin Negative Urine Urobilinogen Normal Ur Leukocyte Esterase Negative Urine RBC 0 SEEN Urine WBC 0 SEEN Ur Squamous Epith Cells 0-5 SEEN Urine Bacteria 0 SEEN Urine Mucus 0 SEEN POC Glucose 113 H 93 Consultations 05/09/18 04:41 Consult: Onc/Wound/bus cleaner Routine Comment: Reason for Consult:: Trach removed 04/16, not healed, increased drainage Operations: None Procedures: None Summary of Care Provided: The patient is a 78 year old Male with below past medical history significant for recent emergent ruptured AAA repair, hospitalized for stroke symptoms, diagnosed with TIA superimposed on encephalopathy, admitted to TCU with debility, here for rehabilitation, strengthening, prior to disposition determination. Resident had trach, recently decannulated. He has PEG with Tubefeeding, but he is eating and trying to increase oral intake. Resident has been having diaphoretic episodes with urination, I believe it is autonomic dysfunction secondary to anoxic encephalopathy from ruptured AAA. My plan has been reassurance. Family does not want any unnecessary medications. Discharge to [facility], Skilled for PT/OT/ST. - Physical Exam Vital Signs Temp Pulse Resp BP Pulse Ox 99.2 F H 85 18 109/55 L 94 05/18/18 15:51 05/18/18 15:51 05/18/18 15:51 05/18/18 15:51 05/18/18 15:51 Oxygen Delivery Method Room Air Weight: 71.327 kg Body Mass Index (BMI) 21.7 Finger Stick Blood Glucose 104 Intake and Output for Last 24 Hours 05/16/18 05/17/18 05/18/18 23:59 23:59 23:59 Intake Total 460 / 460 3352 / 3352 1711 / 1711 Balance 460 / 460 3352 / 3352 1711 / 1711 Laboratory Tests Past 24 Hrs 05/18/18 03:20 Urine Color Yellow Urine Clarity Clear Urine pH 7.0 Ur Specific [place] 1.010 Urine Protein Negative Urine Glucose (UA) Normal Urine Ketones Negative Urine Occult Blood Negative Urine Nitrite Negative Urine Bilirubin Negative Urine Urobilinogen Normal Ur Leukocyte Esterase Negative Urine RBC 0 SEEN Urine WBC 0 SEEN Ur Squamous Epith Cells 0-5 SEEN Urine Bacteria 0 SEEN Urine Mucus 0 SEEN POC Glucose 05/18/18 06:51 POC Glucose 93 Discharge Diet: No Restrictions, - - Mechanical Soft, [place] thick. Discharge Activity: Return to Normal Activity, Use Walker Weight Bearing Status: Weight bearing as tolerated Call your doctor if you observe: Fever of 101 or Higher, Inability to urinate, Inability to have a bowel movement, Shortness of breath, Chest pain, Uncontrolle d pain Home Medications: Medications to take at Discharge Ferrous Sulfate Syrup 300 mg GT BID 03/28/18 Heparin Injection 5,000 units SUBCUT BID 03/28/18 Lansoprazole [Prevacid] 30 mg GT DAILY 03/28/18 Acetaminophen Liquid [Tylenol Liquid] 650 mg GT Q4H PRN PRN 05/05/18 Melatonin 3 mg PO QHS 05/05/18 Menthol/Lanolin/Calamine/Znox [Calmoseptine Ointment] 1 applic TOPICAL BID 05/05/18 Nut.sup,Spec,Lac-Free,Iron/Fos [Twocal Hn Liquid] 40 ml GT DAILY 05/05/18 Polyvinyl Alcohol [Artificial Tears] 1 drop OP Q4H PRN PRN 05/05/18 Aspirin [Aspirin, Baby] 81 mg GT DAILY@0800 05/06/18 Atorvastatin Calcium [Lipitor] 40 mg GT QHS 05/06/18 Bisacodyl [Dulcolax] 10 mg RECTAL DAILY PRN suppos. 05/18/18 Ipratropium/Albuterol Sulfate [Duoneb] 3 ml INHALATION Q6HWA.RT PRN ampul.neb 05/18/18 Nystatin Powder [Mycostatin Powder] 1 applic TOPICAL 0600,2200 bottle 05/18/18 Polyethylene Glycol 3350 [Miralax] 17 gm PO DAILY packet 05/18/18 Senna/Docusate Sodium [Senokot-S] 2 tablet PO BID tablet 05/18/18 Sodium Chloride 0.65% [[place] Nasal [place]] 2 spray NASAL BID PRN PRN spray.btl 05/18/18 Primary Care Physician: Jack Olmedo MD [Primary Care Provider] - Please follow up with your Primary Care Physician in: 1 week. Please Follow Up With: Abdullahi Styles MD When: 2-3 weeks Please Follow Up With: PET SCAN HERE AT [facility] Disposition: [facility] facility Minutes spent on discharge:: 35 Patient Condition:: Stable - Yuan tends to have minor changes in condition every other day, most episodes can be managed with reassurance, family very involved but reasonable. Medical Necessity - Tobacco Use Smoking Status: Never smoker Tobacco Use: Non-smoker Meaningful Use Info Meaningful Use Diagnoses (Choose all that apply): None applicable
[2018-05-19] MEDS: Menthol/Lanolin/Calamine/Znox 113 GM Tube 1 APPLIC TOPICAL ×2 (05:35→17:49)
[2018-05-19] MEDS: Nystatin Powder 15gm Bottle 1 APPLIC TOPICAL ×2 (05:36→21:37)
[2018-05-19] MEDS: Senna/Docusate Sodium 1 Tablet 2 TABLET PO ×2 (05:36→17:49)
[2018-05-19] MEDS: Ferrous Sulfate 300 MG/5 ML UDC PO ×2 (05:36→17:49)
[2018-05-19] MEDS: Polyethylene Glycol 3350 17 GM PACKET PO (05:37)
[2018-05-19] MEDS: Heparin Injection (Vial) 5,000 UNIT/ML VIAL 5000 UNIT SC ×2 (05:37→17:51)
[2018-05-19 06:51] LABS: Bedside Glucose 87 mg/dL (70-110)
[2018-05-19] MEDS: Aspirin 81 MG TAB.CHEW PO (08:57)
--- NOTE | 2018-05-19 11:50 | MDS.RN ---
Pain interview for celeste 05/20/18
[2018-05-19] MEDS: 0.9% Normal Saline 1,000 ML 60 ML IV (13:34)
[2018-05-19 16:00] VITALS: BP 109/49; PULSE 89; RESP 18; TEMP 36; O2SAT 95
[2018-05-19] MEDS: MELATONIN 3 MG TABLET PO (21:37)
[2018-05-19] MEDS: Atorvastatin Calcium 40 MG Tablet PO (21:37)
[2018-05-20] MEDS: Ferrous Sulfate 300 MG/5 ML UDC PO ×2 (06:01→17:31)
[2018-05-20] MEDS: Nystatin Powder 15gm Bottle 1 APPLIC TOPICAL ×2 (06:01→21:04)
[2018-05-20] MEDS: Polyethylene Glycol 3350 17 GM PACKET PO (06:01)
[2018-05-20] MEDS: Senna/Docusate Sodium 1 Tablet 2 TABLET PO ×2 (06:01→17:31)
[2018-05-20] MEDS: Menthol/Lanolin/Calamine/Znox 113 GM Tube 1 APPLIC TOPICAL ×2 (06:02→17:31)
[2018-05-20] MEDS: Heparin Injection (Vial) 5,000 UNIT/ML VIAL 5000 UNIT SC ×2 (06:04→17:31)
[2018-05-20] MEDS: 0.9% Normal Saline 1,000 ML 60 ML IV ×2 (06:34→23:10)
[2018-05-20 06:51] LABS: Bedside Glucose 100 mg/dL (70-110)
[2018-05-20] MEDS: Aspirin 81 MG TAB.CHEW PO (09:08)
[2018-05-20 15:58] VITALS: BP 154/74; PULSE 106; RESP 18; TEMP 36.6; O2SAT 99
--- NOTE | 2018-05-20 20:02 | NURSING ---
This RN called to bedside for dislodged PEG tube. scant sanguineous drainage noted, DSD applied and Dr. Gustafson notified. 18 Fr Sanchez inserted into site per physician, placement verified via aspiration. Pt tolerated well.
--- NOTE | 2018-05-20 20:49 | PCA ---
This aide was assisting BONI Penn with PM care for patient. Patient's hands were very fidgity trying to help in removing gown and we both heard a pop and noticed PEG tube had become dislodged. Applied pressure to site and notified JJ Mendoza
[2018-05-20] MEDS: Atorvastatin Calcium 40 MG Tablet PO (20:54)
--- NOTE | 2018-05-20 21:08 | PCA ---
Me and ATHLETE MANAGER Jonathan Montenegro were assisting Pt with PM care. Pt was he was fidgety and trying to help with taking gown off. This aide and Jonathan Montenegro heard a pop and noticed PEG tube had become dislodged. Jonathan Montenegro applied pressure to site and this aide notified JJ Mendoza immediately
[2018-05-21] MEDS: Polyethylene Glycol 3350 17 GM PACKET PO (05:45)
[2018-05-21] MEDS: Senna/Docusate Sodium 1 Tablet 2 TABLET PO ×2 (05:45→18:19)
[2018-05-21] MEDS: Ferrous Sulfate 300 MG/5 ML UDC PO ×2 (05:46→18:19)
[2018-05-21] MEDS: Heparin Injection (Vial) 5,000 UNIT/ML VIAL 5000 UNIT SC ×2 (05:47→18:19)
[2018-05-21] MEDS: Nystatin Powder 15gm Bottle 1 APPLIC TOPICAL ×2 (05:57→20:45)
[2018-05-21] MEDS: Menthol/Lanolin/Calamine/Znox 113 GM Tube 1 APPLIC TOPICAL ×2 (05:58→20:45)
[2018-05-21 06:46] LABS: Bedside Glucose 102 mg/dL (70-110)
[2018-05-21 08:19] LABS: Absolute Lymphocyte Count 1.54 X10^3/ul (0.83-4.51); Absolute Neutrophil Count 4.3 X10^3/uL (2.0-7.7); Basophil# 0.02 X10^3/uL; Basophil% 0.3 % (0-1); Eosinophil# 0.46 X10^3/uL; Eosinophils% 6.8 % (0-5); Hematocrit 29.2 % (40-54); Hemoglobin 9.5 g/dl (13.0-16.5); Lymphocyte # 1.54 X10^3/ul (4.0); Lymphocyte % 22.9 % (19-41); Mean Corp Hgb Conc 32.5 g/gl (32-36); Mean Corpuscular Hgb 30.4 pg (27.0-32.0); Mean Corpuscular Volume 93.6 fL (80-94); Mean Platelet Vol. 8.8 fl (6.2-12.0); Monocyte# 0.44 X10^3/uL; Monocyte% 6.5 % (0-10); Neutrophil # 4.25 X10^3/uL (2.7-7.7); Neutrophil % 63.2 % (47-70); Platelet Count 222 K/mm3 (150-450); RBC Distribution Width CV 15.1 % (11.6-14.6); RBC Distribution Width SD 49.1 fl (35.1-43.9); Red Blood Count 3.12 M/mm3 (4.6-6.2); White Blood Count 6.7 K/mm3 (4.4-11.0)
[2018-05-21 08:21] LABS: POSITIVE COUNT NO; POSITIVE DIFFERENTIAL NO; POSITIVE MORPHOLOGY NO
[2018-05-21 08:37] LABS: Anion Gap 8 (5-15); BUN 25 mg/dL (7-18); BUN/Creat Ratio 21.4 RATIO (10-20); Calcium,Total 9.4 mg/dL (8.5-10.1); Chloride 105 mmol/L (98-107); Creatinine, Serum 1.17 mg/dL (0.70-1.30); EST Glomerular Filtration Rate 64 mL/min (>60); Est Glom Filt Rate - Afr Amer 78 mL/min (>60); Glucose 95 mg/dL (74-106); Sodium Level 138 mmol/L (136-145)
[2018-05-21] MEDS: Aspirin 81 MG TAB.CHEW PO (08:50)
[2018-05-21 14:50] VITALS: BP 101/58; PULSE 111; RESP 16; TEMP 36.1; O2SAT 96
[2018-05-21] MEDS: 0.9% Normal Saline 1,000 ML 60 ML IV (15:48)
[2018-05-21] MEDS: 0.9% Normal Saline 1,000 ML 50 ML IV (17:45)
[2018-05-21] MEDS: Atorvastatin Calcium 40 MG Tablet PO (20:29)
[2018-05-22] MEDS: Senna/Docusate Sodium 1 Tablet 2 TABLET PO (06:12)
[2018-05-22] MEDS: Ferrous Sulfate 300 MG/5 ML UDC PO ×2 (06:12→18:19)
[2018-05-22] MEDS: Nystatin Powder 15gm Bottle 1 APPLIC TOPICAL ×2 (06:19→20:22)
[2018-05-22] MEDS: Menthol/Lanolin/Calamine/Znox 113 GM Tube 1 APPLIC TOPICAL ×2 (06:19→20:22)
[2018-05-22] MEDS: Polyethylene Glycol 3350 17 GM PACKET PO (06:19)
[2018-05-22] MEDS: Heparin Injection (Vial) 5,000 UNIT/ML VIAL 5000 UNIT SC ×2 (06:24→18:19)
[2018-05-22 07:16] LABS: Bedside Glucose 115 mg/dL (70-110)
--- NOTE | 2018-05-22 08:12 | NURSING ---
stopped Tube feeds via pump at this time. checked placement with auscultation, flushed with sterile water 60cc. PT tolerated well.
[2018-05-22] MEDS: Aspirin 81 MG TAB.CHEW PO (08:52)
--- NOTE | 2018-05-22 08:59 | NURSING ---
Addendum entered by Tala Tran 05/22/18 12:18: DR PENA INSERTED 20 FR G TUBE PLACED AT 3.5CM AT SKIN. GETTING XRAY W/CONTRAST TO CHECK PLACMENT AND ORDER FOR BINDER TO PROTECT TUBE FROM DISLODGING Original Note: Addendum entered by Tala Tran 05/22/18 09:13: dr Pena returned call will be up today for reinsertion of tube. Original Note: It was reported that PEG tube accidently pulled out on tuesday. Dr Gustafson aware and wants gen surgery consulted. Dr Pena notified, awaiting return call.
--- NOTE | 2018-05-22 12:15 | PCM.CONS.GEN ---
Reason for Consult Date of Consultation: 05/22/18 Reason for Consultation: Replacement of PEG tube History of Present Illness: The patient is a 78 year old M patient was initially admitted to the TCU, patient has a history status post his open AAA repair at [facility] in January 2018. Patient had multiple abdominal surgeries in order to close his abdomen as well. Patient did have a PEG tube placed at that time. While moving the PEG tube was inadvertently pulled. The nurses did place an 18 [place] Erwin catheter at the site this occurred on Tuesday. Currently patient is only using the PEG tube for nighttime feeds to increase nutrition. Past Medical History Past Medical History (Chronic Problems): Chronic Problems (Last Reviewed 05/05/18 @ 17:35 by Abimbola Morris NP-C) Malnutrition (Chronic) Anoxic encephalopathy (Chronic) Abdominal aortic aneurysm, ruptured (Chronic) 01/11/2018 Hyperlipidemia (Chronic) Iron deficiency anemia (Chronic) GERD (gastroesophageal reflux disease) (Chronic) Dysphagia (Chronic) Anemia (Chronic) Vasovagal syndrome (Chronic) Coronary artery disease (Chronic) Coronary artery disease (Chronic) Hypertension (Chronic) Medical History: Medical History (Last Reviewed 05/05/18 @ 17:35 by Abimbola Morris NP-C) Abdominal aortic aneurysm, ruptured (Chronic) I71.3 01/11/2018 Cardiac arrest (Inactive) I46.9 Hyperlipidemia (Chronic) E78.5 Iron deficiency anemia (Chronic) D50.9 GERD (gastroesophageal reflux disease) (Chronic) K21.9 Dysphagia (Chronic) R13.10 Anemia (Chronic) D64.9 Vasovagal syndrome (Chronic) R55 Coronary artery disease (Chronic) I25.10 Coronary artery disease (Chronic) I25.10 Hypertension (Chronic) I10 Allergies famotidine [From Pepcid] Adverse Reaction (Verified 05/07/18 19:47) Low blood pressure metoclopramide [From Reglan] Adverse Reaction (Verified 05/07/18 19:47) Other Home Medications: Ambulatory Orders Medication Instructions Recorded Ferrous Sulfate Syrup 300 mg GT BID 03/28/18 Heparin Injection 5,000 units SUBCUT BID 03/28/18 Lansoprazole [Prevacid] 30 mg GT DAILY 03/28/18 Acetaminophen Liquid [Tylenol 650 mg GT Q4H PRN PRN 05/05/18 Liquid] Melatonin 3 mg PO QHS 05/05/18 Menthol/Lanolin/Calamine/Znox 1 applic TOPICAL BID 05/05/18 [Calmoseptine Ointment] Nut.sup,Spec,Lac-Free,Iron/Fos 40 ml GT DAILY 05/05/18 [Twocal Hn Liquid] Polyvinyl Alcohol [Artificial 1 drop OP Q4H PRN PRN 05/05/18 Tears] Aspirin [Aspirin, Baby] 81 mg GT DAILY@0800 05/06/18 Atorvastatin Calcium [Lipitor] 40 mg GT QHS 05/06/18 Bisacodyl [Dulcolax] 10 mg RECTAL DAILY PRN suppos. 05/18/18 Ipratropium/Albuterol Sulfate 3 ml INHALATION Q6HWA.RT PRN 05/18/18 [Duoneb] ampul.neb Nystatin Powder [Mycostatin Powder] 1 applic TOPICAL 0600,2200 bottle 05/18/18 Polyethylene Glycol 3350 [Miralax] 17 gm PO DAILY packet 05/18/18 Senna/Docusate Sodium [Senokot-S] 2 tablet PO BID tablet 05/18/18 Sodium Chloride 0.65% [[place] Nasal 2 spray NASAL BID PRN PRN 05/18/18 [place]] spray.btl Surgical History: Surgical History (Last Reviewed 05/05/18 @ 17:35 by Abimbola Morris NP-Stephanie) H/O abdominal aortic aneurysm repair Z98.890 7 surgeries related to this, also had a wound vac H/O heart artery stent Z95.5 H/O hernia repair Z98.890, Z87.19 Hx of cholecystectomy Z90.49 Left shoulder surgery 1998? 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 Psychiatric History: No pertinent psych hx Lives: [place] Smoking Status: Never smoker Tobacco Use: Non-smoker Alcohol: None Drugs: None - *Family History Paternal Family History: Family History (Last Reviewed 05/05/18 @ 17:35 by Abimbola Morris NP-C) Sister Factor 5 Leiden mutation, heterozygous Aneurysm Sister Aneurysm History Items: - - No marked maternal or paternal family history reported including HD, DM, CA. Maternal Family History: Family History (Last Reviewed 05/05/18 @ 17:35 by RICA Rosenberg) Sister Factor 5 Leiden mutation, heterozygous Aneurysm Sister Aneurysm History Items: - - No marked maternal or paternal family history reported including HD, DM, CA. Review of Systems Constitutional: Denies: Anorexia, Chills HEENT: Denies: Difficulty Swallowing Cardiovascular: Denies: Chest Pain Respiratory: Denies: Shortness of Breath Gastrointestinal: Denies: Abdominal Pain, Nausea, Vomiting Psychiatric: Denies: Anxiety Hematologic/ Lymphatic: Denies: Easy Bruising, Easy Bleeding - Physical Exam General: Alert, Oriented x3, Cooperative, No apparent distress Cardiovascular: Regular rate Abdomen: Soft, Non Tender, Non-Distended, - - well healed incisions, no PS, erwin in previous PEG tube site Vital Signs Temp Pulse Resp BP Pulse Ox 97.0 F L 111 H 16 101/58 L 96 05/21/18 14:50 05/21/18 14:50 05/21/18 14:50 05/21/18 14:50 05/21/18 14:50 Oxygen Delivery Method Room Air Weight: 154 lb 4 oz Body Mass Index (BMI) 21.7 Finger Stick Blood Glucose 104 Intake and Output for Last 24 Hours 05/20/18 05/21/18 05/22/18 23:59 23:59 23:59 Intake Total 3170 / 3170 1120 / 1120 1189 / 1189 Output Total 100 / 100 200 / 200 Balance 3070 / 3070 1120 / 1120 989 / 989 Microbiology Past 72 Hours 05/18/18 03:20 Urine Culture - Final Urine, Clean Catch Mixed Gram Positive Organisms POC Glucose 05/22/18 06:33 POC Glucose 115 H Assessment/Plan All Active Problems (Last Reviewed 05/05/18 @ 17:35 by RICA Rosenberg) TIA (transient ischemic attack) (Acute) Stroke-like symptoms (Acute) 70-year-old male with inadvertently pulled PEG tube, replacement with 20 [place] G-tube The balloon was taken down of the 18 [place] Erwin. A 20 [place] [employer]ive G-tube was placed without difficulty. The balloon was blown up with 6 cc of air, the bolster was at 3-1/2 at the skin. A 20 [place] G-tube, reference [id number], lot [id number] . will check a contrast study prior to using the G-tube. Nivia Maciel M.D. Pager: [phone] [facility] [address] [place] [address], [facility], [address] [place] [id number] Office: [phone] Code Visit Inpatient E&M: 57647 Init Hosp L2
--- NOTE | 2018-05-22 12:19 | CON.PCM_ITS ---
Reason for Consult Date of Consultation: 05/22/18 Reason for Consultation: Replacement of PEG tube History of Present Illness: The patient is a 78 year old M patient was initially admitted to the TCU, patient has a history status post his open AAA repair at [facility] in January 2018. Patient had multiple abdominal surgeries in order to close his abdomen as well. Patient did have a PEG tube placed at that time. While moving the PEG tube was inadvertently pulled. The nurses did place an 18 Dutch Erwin catheter at the site this occurred on Tuesday. Currently patient is only using the PEG tube for nighttime feeds to increase nutrition. Past Medical History Past Medical History (Chronic Problems): Chronic Problems (Last Reviewed 05/05/18 @ 17:35 by Abimbola Morris NP-C) Malnutrition (Chronic) Anoxic encephalopathy (Chronic) Abdominal aortic aneurysm, ruptured (Chronic) 01/11/2018 Hyperlipidemia (Chronic) Iron deficiency anemia (Chronic) GERD (gastroesophageal reflux disease) (Chronic) Dysphagia (Chronic) Anemia (Chronic) Vasovagal syndrome (Chronic) Coronary artery disease (Chronic) Coronary artery disease (Chronic) Hypertension (Chronic) Medical History: Medical History (Last Reviewed 05/05/18 @ 17:35 by Abimbola Morris NP-C) Abdominal aortic aneurysm, ruptured (Chronic) I71.3 01/11/2018 Cardiac arrest (Inactive) I46.9 Hyperlipidemia (Chronic) E78.5 Iron deficiency anemia (Chronic) D50.9 GERD (gastroesophageal reflux disease) (Chronic) K21.9 Dysphagia (Chronic) R13.10 Anemia (Chronic) D64.9 Vasovagal syndrome (Chronic) R55 Coronary artery disease (Chronic) I25.10 Coronary artery disease (Chronic) I25.10 Hypertension (Chronic) I10 Allergies famotidine [From Pepcid] Adverse Reaction (Verified 05/07/18 19:47) Low blood pressure metoclopramide [From Reglan] Adverse Reaction (Verified 05/07/18 19:47) Other Home Medications: Ambulatory Orders Medication Instructions Recorded Ferrous Sulfate Syrup 300 mg GT BID 03/28/18 Heparin Injection 5,000 units SUBCUT BID 03/28/18 Lansoprazole [Prevacid] 30 mg GT DAILY 03/28/18 Acetaminophen Liquid [Tylenol 650 mg GT Q4H PRN PRN 05/05/18 Liquid] Melatonin 3 mg PO QHS 05/05/18 Menthol/Lanolin/Calamine/Znox 1 applic TOPICAL BID 05/05/18 [Calmoseptine Ointment] Nut.sup,Spec,Lac-Free,Iron/Fos 40 ml GT DAILY 05/05/18 [Twocal Hn Liquid] Polyvinyl Alcohol [Artificial 1 drop OP Q4H PRN PRN 05/05/18 Tears] Aspirin [Aspirin, Baby] 81 mg GT DAILY@0800 05/06/18 Atorvastatin Calcium [Lipitor] 40 mg GT QHS 05/06/18 Bisacodyl [Dulcolax] 10 mg RECTAL DAILY PRN suppos. 05/18/18 Ipratropium/Albuterol Sulfate 3 ml INHALATION Q6HWA.RT PRN 05/18/18 [Duoneb] ampul.neb Nystatin Powder [Mycostatin Powder] 1 applic TOPICAL 0600,2200 bottle 05/18/18 Polyethylene Glycol 3350 [Miralax] 17 gm PO DAILY packet 05/18/18 Senna/Docusate Sodium [Senokot-S] 2 tablet PO BID tablet 05/18/18 Sodium Chloride 0.65% [Bay Nasal 2 spray NASAL BID PRN PRN 05/18/18 [place]] spray.btl Surgical History: Surgical History (Last Reviewed 05/05/18 @ 17:35 by Abimbola Morris NP-Stephanie) H/O abdominal aortic aneurysm repair Z98.890 7 surgeries related to this, also had a wound vac H/O heart artery stent Z95.5 H/O hernia repair Z98.890, Z87.19 Hx of cholecystectomy Z90.49 Left shoulder surgery 1998? 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 Psychiatric History: No pertinent psych hx Lives: Residential Smoking Status: Never smoker Tobacco Use: Non-smoker Alcohol: None Drugs: None - *Family History Paternal Family History: Family History (Last Reviewed 05/05/18 @ 17:35 by Abimbola Morris NP-C) Sister Factor 5 Leiden mutation, heterozygous Aneurysm Sister Aneurysm History Items: - - No marked maternal or paternal family history reported including HD, DM, CA. Maternal Family History: Family History (Last Reviewed 05/05/18 @ 17:35 by RICA Rosenberg) Sister Factor 5 Leiden mutation, heterozygous Aneurysm Sister Aneurysm History Items: - - No marked maternal or paternal family history reported including HD, DM, CA. Review of Systems Constitutional: Denies: Anorexia, Chills HEENT: Denies: Difficulty Swallowing Cardiovascular: Denies: Chest Pain Respiratory: Denies: Shortness of Breath Gastrointestinal: Denies: Abdominal Pain, Nausea, Vomiting Psychiatric: Denies: Anxiety Hematologic/ Lymphatic: Denies: Easy Bruising, Easy Bleeding - Physical Exam General: Alert, Oriented x3, Cooperative, No apparent distress Cardiovascular: Regular rate Abdomen: Soft, Non Tender, Non-Distended, - - well healed incisions, no PS, erwin in previous PEG tube site Vital Signs Temp Pulse Resp BP Pulse Ox 97.0 F L 111 H 16 101/58 L 96 05/21/18 14:50 05/21/18 14:50 05/21/18 14:50 05/21/18 14:50 05/21/18 14:50 Oxygen Delivery Method Room Air Weight: 154 lb 4 oz Body Mass Index (BMI) 21.7 Finger Stick Blood Glucose 104 Intake and Output for Last 24 Hours 05/20/18 05/21/18 05/22/18 23:59 23:59 23:59 Intake Total 3170 / 3170 1120 / 1120 1189 / 1189 Output Total 100 / 100 200 / 200 Balance 3070 / 3070 1120 / 1120 989 / 989 Microbiology Past 72 Hours 05/18/18 03:20 Urine Culture - Final Urine, Clean Catch Mixed Gram Positive Organisms POC Glucose 05/22/18 06:33 POC Glucose 115 H Assessment/Plan All Active Problems (Last Reviewed 05/05/18 @ 17:35 by RICA Rosenberg) TIA (transient ischemic attack) (Acute) Stroke-like symptoms (Acute) 70-year-old male with inadvertently pulled PEG tube, replacement with 20 Dutch G-tube The balloon was taken down of the 18 Dutch Erwin. A 20 Dutch [employer] Endov[employer] G-tube was placed without difficulty. The balloon was blown up with 6 cc of air, the bolster was at 3-1/2 at the skin. A 20 Dutch G-tube, reference [id number], lot [id number] . will check a contrast study prior to using the G-tube. Nivia Maciel M.D. Pager: [phone] [facility] [address] [place] [address], [facility], [address] [place] [id number] Office: [phone] Code Visit Inpatient E&M: 14695 Init Hosp L2
[2018-05-22] MEDS: 0.9% Normal Saline 1,000 ML 50 ML IV (12:51)
[2018-05-22 16:00] VITALS: BP 117/52; PULSE 89; RESP 16; TEMP 36.3; O2SAT 98
--- NOTE | 2018-05-22 16:50 | RAD_ITS ---
STUDY: X-RAY - ABDOMEN/PELVIS REASON FOR EXAM: Male, 78 years old. PEG tube placement. TECHNIQUE: Single AP view of the abdomen / pelvis. COMPARISON: None. FINDINGS: Normal visualized lung bases. Contrast was injected through the PEG tube, and outlines portions of the stomach with no extravasation. This indicates satisfactory positioning. Normal bowel gas pattern. Numerous surgical clips along the medial left abdomen and pelvis. The visualized liver, spleen and kidneys are grossly normal in size and morphology. Normal soft tissue structures. Normal visualized osseous structures. RAD/Abdomen Single View IMPRESSION: Grossly satisfactory position of PEG tube. Electronically Signed: Gigi Rowe MD at 17:07 EST , Service support ,
--- NOTE | 2018-05-22 16:58 | CHAPLAIN ---
Type of Pastoral Visit ___ Initial Visit ___ Follow-up Visit ___ On-call Visit _x__ General Patient Visit ___ Spiritual Assessment ___ Family Conference ___ Bereavement ___ Rapid Response ___ Code Blue ___ Other (describe below) Pastoral Care Referral From ___ Patient _x__ Family ___ Nurse ___ Physician ___ Front Desk Monitor ___ Can Worker ___ Other (describe below) Sacrament/Intervention ___ Active listening ___ Anointing ___ Zoroastrian ___ Bereavement ___ Communion ___ Abby exploration ___ ___ Life review ___ Prayer ___ Reconciliation ___ Sacrament of Sick _x__ Supportive presence ___ Wedding _x__ Other (describe below) Pastoral Comments patient was sleeping but spoke with family and offered support
[2018-05-22] MEDS: Atorvastatin Calcium 40 MG Tablet PO (20:23)
--- NOTE | 2018-05-22 21:12 | NURSING ---
Addendum entered by Babita Wellington 05/22/18 22:06: Erwin was verified with auscultation and aspiration. Tube feeding was hooked back up. Per Nursing Station Cashier angela Maciel reinsert in the AM. Pt resting in bed. Pt denies any discomfort or nausea. Original Note: Peg tube was verified with auscultation and aspiration. Two braxton was hooked up at 2011. Pts daughter out to the nurses station stating the tube was leaking at 2044. This nurse into room immediately. Tube found to be lying on pts stomach with balloon deflated and dressing intact to skin. Dr. Gustafson notified immediately. 16F erwin was inserted without problems. Dr. Maciel notified. Nursing Station Cashier notified of needing new supplies.
[2018-05-23] MEDS: Ferrous Sulfate 300 MG/5 ML UDC PO ×2 (06:39→18:11)
[2018-05-23 06:40] LABS: Bedside Glucose 91 mg/dL (70-110)
[2018-05-23] MEDS: Heparin Injection (Vial) 5,000 UNIT/ML VIAL 5000 UNIT SC ×2 (06:44→18:11)
[2018-05-23] MEDS: Menthol/Lanolin/Calamine/Znox 113 GM Tube 1 APPLIC TOPICAL ×2 (06:44→22:03)
[2018-05-23] MEDS: Nystatin Powder 15gm Bottle 1 APPLIC TOPICAL ×2 (06:52→22:04)
--- NOTE | 2018-05-23 07:24 | PCM.PN.SRG ---
Subjective: Patient evaluated resting comfortably in bed. Patient denies pain/discomfort. PEG tube was dislodged last night. Sanchez catheter was placed and tube feeds were continued. - Physical Exam General: - - Sleeping Abdomen: - - Sanchez catheter intact at PEG tube site Vital Signs Temp Pulse Resp BP Pulse Ox 97.4 F L 89 16 117/52 L 98 05/22/18 16:00 05/22/18 16:00 05/22/18 16:00 05/22/18 16:00 05/22/18 16:00 Oxygen Delivery Method Room Air Weight: 154 lb 4 oz Body Mass Index (BMI) 21.7 Finger Stick Blood Glucose 104 Intake and Output for Last 24 Hours 05/21/18 05/22/18 05/23/18 23:59 23:59 23:59 Intake Total 1120 / 1120 1719 / 1719 2422 / 2422 Output Total 200 / 200 Balance 1120 / 1120 1519 / 1519 2422 / 2422 POC Glucose 05/23/18 06:37 POC Glucose 91 Medical Necessity - Tobacco Use Smoking Status: Never smoker Tobacco Use: Non-smoker Assessment/Plan All Active Problems (Last Reviewed 05/05/18 @ 17:35 by Abimbola Morris, GILBERTO-C) TIA (transient ischemic attack) (Acute) Stroke-like symptoms (Acute) I am following this patient in conjunction with Dr. Maciel Impression: Exchange PEG tube Dr. Maciel will exchange the PEG tube at bedside and check for placement at some point this morning. Code Visit Inpatient E&M: 41586 Subs Hosp L1 - No charge
[2018-05-23] MEDS: Aspirin 81 MG TAB.CHEW PO (09:24)
[2018-05-23] MEDS: 0.9% Normal Saline 1,000 ML 50 ML IV (09:25)
--- NOTE | 2018-05-23 12:10 | CASEMGMT ---
Social Work Following up with resident and resident family on discharge plan. Resident family voicing to still be unsure of what facility they would like resident to transition to. Resident family reporting to still be discussing topic. This social media marketing manager planning to follow up with resident and resident family on the morning of 05/26/18. Resident and resident family aware that facility will need to be chosen by then in order to allow enough time for the referral process. Resident family also not ruling out having resident return home, but are thinking that most likely the plan will be a facility. Support given. Social work to follow up with resident on Tuesday. ARNULFO MicheleW, COURSEWARE DEVELOPER
--- NOTE | 2018-05-23 12:36 | NURSING ---
Dr. Payton inserted 20g PEG tube at bedside. Patient tolerated well. NO to complete ABD xray with IV dye injection to verify placement this evening, after dinner. Family aware.
--- NOTE | 2018-05-23 12:51 | NURSING ---
NO to D/C melatonin per family request.
[2018-05-23 15:22] VITALS: BP 128/65; PULSE 92; RESP 16; TEMP 36.9; O2SAT 95
[2018-05-23] MEDS: Senna/Docusate Sodium 1 Tablet 2 TABLET PO (18:13)
--- NOTE | 2018-05-23 18:14 | NURSING ---
Patient has c/o sinus congestion, spitting up thick, yellow phlegm. LSCTA. Dr. Gustafson notified. NO for flonase 1 spray to both nostrils BID. Patient and family aware.
--- NOTE | 2018-05-23 19:54 | RAD_ITS ---
STUDY: X-RAY - ABDOMEN/PELVIS REASON FOR EXAM: Male, 78 years old. PEG tube placement TECHNIQUE: Single frontal view COMPARISON: May 22, 2018 FINDINGS: Normal visualized lung bases. There is an unremarkable bowel gas pattern. There is no demonstrated free abdominal air. Focal calcification over the hepatic shadow similar to previous study. Tortuous aorta. There are surgical clips over the abdomen and pelvis. A percutaneous gastrostomy catheter is noted with administered contrast outlining the gastric lumen and proximal duodenal loop. No contrast extravasation is appreciated. Normal soft tissue structures. Degenerative vertebral changes. RAD/Abdomen Single View IMPRESSION: Percutaneous gastrostomy tube with tip at the body of the stomach. Electronically Signed: David Burr DO at 20:53 EST Tel [phone], Service support ,
[2018-05-23] MEDS: Atorvastatin Calcium 40 MG Tablet PO (22:03)
[2018-05-24] MEDS: 0.9% Normal Saline 1,000 ML 50 ML IV (05:36)
[2018-05-24] MEDS: Nystatin Powder 15gm Bottle 1 APPLIC TOPICAL ×2 (05:37→20:28)
[2018-05-24] MEDS: Menthol/Lanolin/Calamine/Znox 113 GM Tube 1 APPLIC TOPICAL ×2 (05:38→20:27)
[2018-05-24] MEDS: Ferrous Sulfate 300 MG/5 ML UDC PO ×2 (05:42→17:35)
[2018-05-24] MEDS: Heparin Injection (Vial) 5,000 UNIT/ML VIAL 5000 UNIT SC ×2 (05:46→17:33)
[2018-05-24 06:41] LABS: Bedside Glucose 93 mg/dL (70-110)
--- NOTE | 2018-05-24 06:54 | NURSING ---
This nurse and CHARACTER ACTOR into room to change pt. Upon rolling pt PEG tube noted to come out with the balloon deflated. ABD binder in place. Dr. Gustafson notified and order to put in erwin and page Dr. Maciel. 16F erwin was inserted without complications and pt tolerated well. Patency was verified with auscultation and aspiration. Pt was reconnected to tube feed. Pt denies any nausea or discomfort. Dr. Willis supervisor electronics assembly and requesting Dr. Maciel be paged between [phone]. Will update dayshift.
[2018-05-24] MEDS: Aspirin 81 MG TAB.CHEW PO (08:54)
--- NOTE | 2018-05-24 09:09 | PCM.PN.BLA ---
Progress Note Patient's G tube fell out this morning around 0400. Dr. Maciel will obtain a replacement PEG tube from our office and replace it at some point today. Patient currently has a Sanchez catheter in place. He received the remaining tube feeds through the Sanchez. Code Visit Inpatient E&M: 23537 Subs Hosp L1 - NO CHARGE
[2018-05-24 10:26] LABS: Anion Gap 10 (5-15); BUN 28 mg/dL (7-18); BUN/Creat Ratio 23.1 RATIO (10-20); Calcium,Total 9.5 mg/dL (8.5-10.1); Chloride 104 mmol/L (98-107); Creatinine, Serum 1.21 mg/dL (0.70-1.30); EST Glomerular Filtration Rate 62 mL/min (>60); Est Glom Filt Rate - Afr Amer 75 mL/min (>60); Estimated Creatinine Clearance 49.96 ml/min; Glucose 110 mg/dL (74-106); Potassium 4.4 mmol/L (3.5-5.1); Sodium Level 140 mmol/L (136-145)
--- NOTE | 2018-05-24 11:16 | NURSING ---
1100 DR PENA HERE AND INSERTED PONSKY NBR G TUBE REPLACEMENT 20 SPANISH 12 INCHES LONG, SITTING 4CM AT SKIN LEVEL. PT TOLERATED WELL. WILL GET XRAY OF ABD W/CONTRAST LATER THIS EVENING AFTER SUPPER
--- NOTE | 2018-05-24 13:55 | MDS.RN ---
Information for the mds was obtained from review of the clinical record, interview of resident, staff, and direct observation of resident's care.
--- NOTE | 2018-05-24 14:02 | NURSING ---
staff reported that pt has lump to RT groin, Dr Gustafson updated and assessed this AM, states that it is from a known hernia, reducible. known by CT scan previously. pt denies pain at site.
[2018-05-24 15:33] VITALS: BP 130/61; PULSE 89; RESP 18; TEMP 36.4; O2SAT 97
[2018-05-24] MEDS: Fluticasone 0.05% 1 SPRAY NASAL.SRY NASAL (17:32)
[2018-05-24] MEDS: Senna/Docusate Sodium 1 Tablet 2 TABLET PO (17:35)
--- NOTE | 2018-05-24 17:49 | NURSING ---
DR TENORIO AWARE OF SPUTUM GRAM STAIN RESULTS, AWAITING CULTURE RESULTS
--- NOTE | 2018-05-24 18:30 | RAD_ITS ---
STUDY: X-RAY - ABDOMEN/PELVIS REASON FOR EXAM: Male, 78 years old. Tube placement. TECHNIQUE: Imaging of the abdomen was performed following the injection of 60 mL of Gastrografin through an indwelling gastrostomy tube. COMPARISON: Abdomen, May 23, 2018. FINDINGS: Normal visualized lung bases. Contrast from the prior gastric graft and injection is seen in the transverse colon. Contrast fills the gastric lumen without evidence of leakage. There is no evidence of reflux. Contrast is seen in the duodenum and proximal jejunum. There is no demonstrated free abdominal air. The visualized liver, spleen and kidneys are grossly normal in size and morphology. Focal density along the right diaphragmatic surface unchanged from prior study. Normal soft tissue structures. Normal visualized osseous structures. RAD/Abdomen Single View IMPRESSION: Gastrografin injection of the gastrostomy tube as described. Electronically Signed: Michael Moss DO at 19:57 EST Tel [phone], Service support ,
--- NOTE | 2018-05-24 18:53 | NURSING ---
xray here for gastric tube placement
[2018-05-24] MEDS: Atorvastatin Calcium 40 MG Tablet PO (20:27)
--- NOTE | 2018-05-24 21:49 | NURSING ---
Dr Gustafson aware of nica SAUCEDO to use peg tube.
[2018-05-25] MEDS: 0.9% Normal Saline 1,000 ML 50 ML IV (01:30)
[2018-05-25 06:41] LABS: Bedside Glucose 101 mg/dL (70-110)
[2018-05-25] MEDS: Nystatin Powder 15gm Bottle 1 APPLIC TOPICAL (06:46)
[2018-05-25] MEDS: Menthol/Lanolin/Calamine/Znox 113 GM Tube 1 APPLIC TOPICAL (06:46)
[2018-05-25] MEDS: Ferrous Sulfate 300 MG/5 ML UDC PO (06:47)
[2018-05-25] MEDS: Heparin Injection (Vial) 5,000 UNIT/ML VIAL 5000 UNIT SC (06:47)
[2018-05-25] MEDS: Fluticasone 0.05% 1 SPRAY NASAL.SRY NASAL (06:47)
--- NOTE | 2018-05-25 07:46 | NURSING ---
Addendum entered by Tala Tran 05/25/18 09:43: Dr gustafson updated, new order to DC IVF's Original Note: Pt pulled out IV this AM. Pt to have cookie swallow study at 10AM. Pt to discharge soon. Dr Gustafson aware. Family agreeable at this time to stop IV fluids and encourage oral fluids. Will continue to monitor and asses as needed.
--- NOTE | 2018-05-25 07:50 | NURSING ---
During AM med pass this nurse proving oral fluids to pt. Pt consumed 120ml of apple juice. This nurse offered additional fluids to pt,pt agreeable and acceptable to oral fluids. Son declined additional fluids to pt. Son informed this nurse breakfast trays will be coming soon and he did not want to disrupt pt's appetite.
--- NOTE | 2018-05-25 08:30 | PCM.PN.BLA ---
Progress Note Patient evaluated resting comfortably in bed. PEG tube intact and remained in place. Tube feeds successful. Please let our office know if difficulties with PEG tube. Code Visit Inpatient E&M: 88976 Subs Hosp L1 - NO CHARGE
--- NOTE | 2018-05-25 08:33 | PN_ITS ---
Progress Note Patient evaluated resting comfortably in bed. PEG tube intact and remained in place. Tube feeds successful. Please let our office know if difficulties with PEG tube. Code Visit Inpatient E&M: 02311 Subs Hosp L1 - NO CHARGE
[2018-05-25] MEDS: Aspirin 81 MG TAB.CHEW PO (09:16)
--- NOTE | 2018-05-25 09:38 | NURSING ---
pt ate 100% of brkfst with assist of son. After giving pt aspirin crushed in applesauce, he began gagging and threw up ochoa colored liquid w/pieces of food w/banana odor. approx 200cc. This nurse had just flushed his tube w/50cc h20 before pt vomited. Will continue to monitor.
--- NOTE | 2018-05-25 10:00 | RAD_ITS ---
STUDY: SWALLOWING STUDY REASON FOR EXAM: Male, 78 years old. Dysphagia. TECHNIQUE: The examination was performed with Speech Pathology in attendance. Under fluoroscopic observation, the patient ingested thin barium, thick barium, barium pudding, and barium coated cracker. FLUOROSCOPY TIME: 1:57 minutes/seconds. 1837 spot images were obtained. RADIOLOGIST INVOLVEMENT: Radiologist was present and providing direct supervision. COMPARISON: None. FINDINGS: The following was observed during swallowing of the various mixtures of barium: Thin Barium: Transient penetration with ingestion of thin liquids. The penetration was to the level of the cords. Thick Barium: There was no evidence of aspiration or laryngeal penetration. Barium Pudding: There was no evidence of aspiration or laryngeal penetration. Barium Coated Cracker: There was no evidence of aspiration or laryngeal penetration. RAD/Swallowing Function w/Video IMPRESSION: Transient penetration with ingestion of thin liquids. The swallow study findings were discussed with the patient by the speech pathologist at the conclusion of the examination. Please see speech pathology report for more information and recommendations. Electronically Signed: Bertrand Steel MD at 13:52 EST Tel [phone], Service support ,
--- NOTE | 2018-05-25 10:00 | SP.MBSS_ITS ---
PRIMARY / SECONDARY DIAGNOSIS: Moderate Oropharyngeal Dysphagia (R13.12) REFERRING PHYSICIAN: Dr. Gustafson CURRENT DIET: Mechanical Soft/[place] Thickened Liquids DENTITION: Present MENTAL STATUS: Sufficient for participation in MBS RESPIRATORY STATUS: oxygenating on room air PREVIOUS MODIFIED BARIUM SWALLOW STUDY: 05/17/2018 moderate oropharyngeal dysphagia (R13.12) w/ pureed texture/honey thickened liquid diet recommended REASON FOR REFERRAL: Further assessment of swallow function under fluoroscopy to assess appropriateness for diet upgrade MEDICAL HISTORY: Pt is a 78 y/o male with a past medical history significant for ruptured abdominal aortic aneurysm, cardiac arrest, anoxic encephalopathy, hyperlipidemia, acute kidney injury, tachycardia, disseminated intravascular coagulation, ileus, iron deficiency anemia, GERD, dysphagia, coronary artery disease, and HTN. Pt presented to ED on 01/11/2018 with syncope, left flank pain, diaphoresis, and nausea. He was diagnosed with 6CM abdominal aortic aneurysm which ruptured. The patient was life flighted to [facility] where on 01/12/2018 Dr. Paniagua performed an emergent AAA repair. Pt was then transferred to [facility] for recovery where he received a trach, PEG and condom catheter on 01/27/2018 w/ subsequent transfer to [facility] Trans[facility] Unit STUDY FINDINGS: Patient participated in a Modified Barium Swallow (MBS) study on 05/25/2018. This study was recorded in the lateral view and images were sent to PACs for storage and radiology review. The following consistencies were presented to this patient for analysis of oropharyngeal swallow function: thin liquid, pudding, and a regular textured, Kamila Doone cookie. Results of the MBS are as follows: PENETRATION / ASPIRATION SCALE (QUIJANO): 1 = does not enter airway 2 = enters airway/above vocal folds/ejected 3 = enters airway/above vocal folds/not ejected 4 = enters airway/contacts vocal folds/ejected 5 = enters airway/contacts vocal folds/not ejected 6 = enters airway/below vocal folds/ejected 7 = enters airway/below vocal folds/not ejected despite effort 8 = enters airway/below vocal folds/no effort PENETRATION / ASPIRATION SCALE (SCORE): 1.Thin tsp: 4 2.Thin cup: 1 3.Thin Cup: 1 4.Puddin 5.Cookie: 1 6.Thin cup: 2 7.Thin straw: 2 8.Thin sequential swallow cup: 5 IMPRESSION: ORAL PHASE CHARACTERIZED BY: LABIAL SEAL: escape beyond interlabial space or lateral juncture; no extension beyond rubi border TONGUE CONTROL DURING BOLUS MANIPULATION: cohesive bolus between tongue to palatal seal BOLUS PREPARATION / MASTICATION: slow prolonged chewing/mashing with complete recollection BOLUS TRANSPORT / LINGUAL MOTION: slowed tongue motion ORAL RESIDUE: residue collection on oral structures PHARYNGEAL PHASE CHARACTERIZED BY: INITIATION OF PHARYNGEAL SWALLOW: bolus head in valleculae at first hyoid excursion SOFT PALATE ELEVATION: no bolus between soft palate and pharyngeal wall LARYNGEAL ELEVATION: partial superior movement of thyroid cartilage/partial approximation of arytenoids cartilage to epiglottic petiole ANTERIOR HYOID EXCURSION: partial anterior movement EPIGLOTTIC MOVEMENT: complete epiglottic inversion LARYNGEAL VESTIBULE CLOSURE AT HEIGHT OF SWALLOW: incomplete laryngeal vestibule closure with narrow column of air/contrast in laryngeal vestibule PHARYNGEAL STRIPPING WAVE: pharyngeal stripping wave present / complete PHARYNGOESOPHAGEAL SEGMENT OPENING: complete distension and complete duration with no obstruction of flow TONGUE BASE RETRACTION: narrow column of contrast between tongue base and posterior pharyngeal wall PHARYNGEAL RESIDUE: trace residue within or on pharyngeal structures ESOPHAGEAL PHASE CHARACTERIZED BY: ESOPHAGEAL BOLUS CLEARANCE IN THE UPRIGHT POSITION: esophageal retention with retrograde flow through PES EFFECTS OF TREATMENT STRATEGIES ATTEMPTED: Reduced liquid bolus volume = effective Removal of straw = effective INTERPRETATION OF RESULTS: Patient presents with moderate oral dysphagia (R13.11) and mild oropharyngeal dysphagia (R13.12). Oral phase is primarily marked by mastication inefficiency (prolonged, although adequate) with reduced lingual strength/control resulting in slowed A-P bolus transit w/ multiple lingual sweeps required to clear pudding/cookie boluses from the oral cavity. Inefficient oral clearance secondary to reduced intraoral strength. Decreased tongue base retraction appreciation although posterior pharyngeal wall overcompensated for sufficient tongue base to PPW contact w/ trace-mild contrast remaining on tongue base post deglutition. Mild delay in swallow onset, especially of note w/ large volume (sequential) thin liquid consumption via cup and single sips via straw. Pharyngeal phase primarily marked by inconsistent pharyngeal swallow onset timing resulting in suboptimal bolus location upon swallow onset. Improved w/ single sips via cup. Delayed closure of the airway during deglutition attributed to reduced laryngeal elevation and anterior hyoid excursion resulting in penetration large volume (sequential) thin liquid boluses via Penetration was eliminated w/ bolus volume adjustments. Sufficient distention/duration of pharyngoesophageal segment opening, although trace retrograde flow through the PES noted w/ small collection of contrast in the pyriforms post deglutition. This collection had no impact on swallow function and did not place the patient at increased risk for aspiration. RECOMMENDATIONS: DIET TEXTURE RECOMMENDATIONS: Will recommend a mechanical soft texture/thin liquid diet. COMPENSATORY STRATEGIES RECOMMENDED: Supervision/assist w/ tray set up & feeding as needed, reduced bolus volume, reduced rate of intake, no straws, seated upright at 90 degrees during PO intake, remain upright for 30-60 minutes post meal (GERD precaution) CONTINUED NEED FOR SKILLED DYSPAHGIA INTERVENTION: Patient requires intensive skilled speech-language intervention targeting: * continued diet texture management * training and implementation of recommended compensatory strategies * training and implementation of recommended oral strengthening exercises to facilitate improved lingual control strength * training and implementation of recommended oropharyngeal strengthening exercises to facilitate improved laryngeal vestibule closure and synchrony * ongoing patient and caregiver education ADDITIONAL COMMENTS/RECOMMENDATIONS: Results and recommendations were discussed with the Patient and family immediately following MBS completion, with the all present parties verbalizing understanding and agreement with all recommendations and education provided.
--- NOTE | 2018-05-25 11:10 | NURSING ---
Addendum entered by Rebecca Robles 05/25/18 12:46: 2 HOOD MAKER's in room were Nora and Pam. Original Note: Addendum entered by Rebecca Robles 05/25/18 11:44: See RAIL GRINDER notes. Original Note: This nurse called back to residents room by HOOD MAKER. 2 HOOD MAKER's in room with son. Sitting on side of bed. Unresposonsive with eyes opened. Arms and mouth clenched. Diaphoretic. Son is hitting on resident's chest and yelling he's not breathing!. Andrew Edgar RN calls RAIL GRINDER. This nurse and HOOD MAKER's lie resident back down in bed. Resident breathing and starting to relax and response after a few minutes.
--- NOTE | 2018-05-25 11:17 | EKG12_ITS ---
Test Reason : SYCOPE Blood Pressure : / mmHG Vent. Rate : 089 BPM Atrial Rate : 089 BPM P-R Int : 128 ms QRS Dur : 076 ms QT Int : 382 ms P-R-T Axes : 013 -32 -11 degrees QTc Int : 464 ms Normal sinus rhythm Left axis deviation /LAHB Abnormal ECG Confirmed by MOY GEE ([id number]), medical transcription editor KATHY SILVA ([id number]) on 05/31/2018 2:41:00 PM Referred By: Jh Gustafson Confirmed By:MOY GEE
[2018-05-25 11:25] LABS: Bedside Glucose 132 mg/dL (70-110)
--- NOTE | 2018-05-25 11:35 | NURSING ---
Taken to radiology for CT scan of head. Tala GARDNER talking to Dr Gustafson in regards to orders.
[2018-05-25 11:41] LABS: Base Excess 0 mmol/L (-2 to +2); Bicarbonate 23.6 mmol/L (22-26); Blood Gas Specimen Type ART; O2 Delivery Device Room Air; PO2 72 mmHG (75-100); SITE L Radial; SO2 95 % (95-99); Time Given 1134; Total Carbon Dioxide 25 mmol/L; pCO2 34.5 mmHg (35-45); pH 7.44 (7.35-7.45)
--- NOTE | 2018-05-25 12:00 | RAD_ITS ---
STUDY: X-RAY CHEST REASON FOR EXAM: Male, 78 years old. Dyspnea and shortness of breath. TECHNIQUE: Single AP portable view of the chest. COMPARISON: Comparison is made with prior study dated May 04, 2018. FINDINGS: The lungs are clear and expanded. There is no demonstrated pleural abnormality. Normal size heart. Normal mediastinum and maximilian. Normal visualized pulmonary arteries. There is atherosclerotic calcification of the aortic arch with tortuosity. Normal visualized thoracic spine. An intramedullary jerry is seen in the left humerus. There is no demonstrated abnormality of the visualized soft tissue structures of the upper abdomen. RAD/Chest 1 View (Portable) IMPRESSION: No acute abnormality is seen. Electronically Signed: Bertrand Steel MD at 12:24 EST Tel [phone], Service support ,
[2018-05-25 13:10] VITALS: BP 106/68; PULSE 90; RESP 16; O2SAT 98
--- NOTE | 2018-05-25 13:32 | NURSING ---
Resident laying in bed. Keeps eyes closed and doesnt respond to verbal stimulation or touching. Family concerned and wanting resident to be further evaluated in ED. Dr Gustafson paged and orders given to transfer to ED. Report called to JJ Campos.
--- NOTE | 2018-05-26 15:56 | PCM.DC ---
- Discharge Diagnoses Current Active Problems: Current Active and Chronic Problems (Last Reviewed 05/05/18 @ 17:35 by RICA Rosenberg) Unresponsive episode (Acute) Anoxic encephalopathy (Chronic) Syncope and collapse (Acute) Change in mental status (Acute) Discharge Activity: Return to Normal Activity, Use Walker Weight Bearing Status: Weight bearing as tolerated Call your doctor if you observe: Fever of 101 or Higher, Inability to urinate, Inability to have a bowel movement, Shortness of breath, Chest pain, Uncontrolled pain Allergies/Adverse Reactions: Allergies famotidine [From Pepcid] Adverse Reaction (Verified 05/07/18 19:47) Low blood pressure metoclopramide [From Reglan] Adverse Reaction (Verified 05/07/18 19:47) Other Medications to take at Discharge Ferrous Sulfate Syrup 300 mg GT BID 03/28/18 Heparin Injection [(None)] 5,000 units SUBCUT BID 03/28/18 Lansoprazole [Prevacid] 30 mg GT DAILY 03/28/18 Acetaminophen Liquid [Tylenol Liquid] 650 mg GT Q4H PRN PRN 05/05/18 Menthol/Lanolin/Calamine/Znox [Calmoseptine Ointment] 1 applic TOPICAL BID 05/05/18 Nut.sup,Spec,Lac-Free,Iron/Fos [Twocal Hn Liquid] 40 ml GT DAILY 05/05/18 Polyvinyl Alcohol [Artificial Tears] 1 drop OP Q4H PRN PRN 05/05/18 Aspirin [Aspirin, Baby] 81 mg GT DAILY@0800 05/06/18 Atorvastatin Calcium [Lipitor] 40 mg GT QHS 05/06/18 Bisacodyl [Dulcolax] 10 mg RECTAL DAILY PRN suppos. 05/18/18 Ipratropium/Albuterol Sulfate [Duoneb] 3 ml INHALATION Q6HWA.RT PRN ampul.neb 05/18/18 Nystatin Powder [Mycostatin Powder] 1 applic TOPICAL 0600,2200 bottle 05/18/18 Polyethylene Glycol 3350 [Miralax] 17 gm PO DAILY packet 05/18/18 Senna/Docusate Sodium [Senokot-S] 2 tablet PO BID tablet 05/18/18 Sodium Chloride 0.65% [[place] Nasal [place]] 2 spray NASAL BID PRN PRN spray.btl 12/13/18 0.9 % Sodium Chloride [Normal Saline Flush] 5 - 15 ml IV UD PRN 05/25/18 Fluticasone 0.05% [Flonase Nasal [place]] 1 spray NASAL BID 05/25/18 Primary Care Physician: Jack Olmedo MD [Primary Care Provider] - Please follow up with your Primary Care Physician in: 1 week. Test Results: Test results from this visit will be discussed in further detail at your follow-up appointment, if applicable. Please Follow Up With: Abdullahi Styles MD When: 2-3 weeks Please Follow Up With: [facility] Please Follow Up With: Dr Jack Olmedo When: within 1 week after DC Proposed Discharge Date: 05/26/18
--- OUTSIDE RECORDS SUMMARY | 2018-06-30 20:46 | XMS RPT_ITS ---
:1940 External Reference #:[id number] Author Organization [place] Support Name Relationship Address Phone Ariadna Casanova Unavailable Unavailable + R Unavailable Unavailable Unavailable MABLE SHELLY Unavailable [address] + [place] [address] R Unavailable Unavailable Unavailable SHELLY AKINS Unavailable [address] + [place] [address] Ariadna Casanova Unavailable Unavailable + R Unavailable Unavailable Unavailable SHELLY AKINS Unavailable [address] + [place] [address] Ariadna Casanova Unavailable Unavailable + R Unavailable Unavailable Unavailable SHELLY AKINS Unavailable [address] + [place] [address] Ariadna Casanova Unavailable Unavailable + R Unavailable Unavailable Unavailable SHELLY AKINS Unavailable [address] + [place] [address] R Unavailable Unavailable Unavailable PREETI AKINSE Unavailable [address] + [place] [address] Ariadna Casanova Unavailable Unavailable + R Unavailable Unavailable Unavailable SHELLY AKINS Unavailable [address] + [place] [address] R Unavailable Unavailable Unavailable MABLE SHELLY Unavailable [address] + [place] [address] R Unavailable Unavailable Unavailable SHELLY AKINS Unavailable [address] + [place] [address] R Unavailable Unavailable Unavailable SHELLY AKINS Unavailable [address] + [place] [address] R Unavailable Unavailable Unavailable SHELLY AKINS Unavailable [address] + [place] [address] R Unavailable Unavailable Unavailable SHELLY AKINS Unavailable [address] + [place] [address] R Unavailable Unavailable Unavailable SHELLY AKINS Unavailable [address] + [place] [address] R Unavailable Unavailable Unavailable SHELLY AKINS Unavailable [address] + [place] [address] R Unavailable Unavailable Unavailable SHELLY AKINS Unavailable [address] + [place] [address] R Unavailable Unavailable Unavailable SHELLY AKINS Unavailable [address] + [place] [address] R Unavailable Unavailable Unavailable SHELLY AKINS Unavailable [address] + [place] [address] R Unavailable Unavailable Unavailable SHELLY AKINS Unavailable [address] + [place] [address] R Unavailable Unavailable Unavailable SHELLY AKINS Unavailable [address] + [place] [address] R Unavailable Unavailable Unavailable SHELLY AKINS Unavailable [address] + [place] [address] R Unavailable Unavailable Unavailable SHELLY AKINS Unavailable [address] + [place] [address] R Unavailable Unavailable Unavailable SHELLY AKINS Unavailable [address] + [place] [address] Care Team Providers Name Role Phone Cammy [...] Consulting Unavailable White, Ny Admitting Unavailable [place], [place] Attending Unavailable Olmedo, Jack Primary Care Unavailable Hakan, Ricardo S. Consulting Unavailable [place], [place] Consulting Unavailable White, [place] Admitting Unavailable [place], [place] Attending Unavailable Olmedo, Jack Primary Care Unavailable Hakan, Ricardo S. Consulting Unavailable Reid, Nelson Consulting Unavailable [place], [place] Consulting Unavailable White, [place] Admitting Unavailable [place], [place] Attending Unavailable Olmedo, Jack Primary Care Unavailable Hakan, Ricardo S. Consulting Unavailable Reid, Nelson Consulting Unavailable [place], [place] Consulting Unavailable Sj, Jh Chi Admitting Unavailable [...] PANIAGUA Admitting Unavailable VENKAT PANIAGUA Attending Unavailable [facility] Primary Care Unavailable VENKAT PANIAGUA Admitting Unavailable VENKAT PANIAGUA Attending Unavailable BLANCHARD, MEGAN Primary Care Unavailable PERCY CARRERA Consulting Unavailable EKATERINA MCKEON Consulting Unavailable TANPHAICHITR, NATTHAVAT Consulting Unavailable GILBERT TUCKER Consulting Unavailable ADRIANE CARVALHO Consulting Unavailable BRAD CASTILLO Consulting Unavailable Catalino MARTINO Consulting Unavailable EDU IIIDORCAS Consulting Unavailable [facility] Referring Unavailable [facility] Primary Care Unavailable [facility] Referring Unavailable [facility] Primary Care Unavailable [facility] Primary Care Unavailable CHENTE WHITTAKER Attending Unavailable [...] R53.81 - Other Sj, Jh Chi Active [place] malaise / Community R53.81(ICD-10) Hospital Repository 05/05/2018 Unknown R13.12 - Dysphagia, Sj, Jh Chi Active [place] oropharyngeal phase / Community R13.12(ICD-10) Hospital Repository 04/11/2018 Unknown J96.10 - Chronic Reid, Nelson Active [place] respiratory failure, Community unspecified whether Hospital with hypoxia or Repository hypercapnia / J96.10(ICD-10) 04/11/2018 Unknown R55 - Syncope and Reid, Nelson Active [place] collapse / Community R55(ICD-10) Hospital Repository 04/11/2018 Unknown E78.5 - Reid, Nelson Active [place] Hyperlipidemia, Community unspecified / Hospital E78.5(ICD-10) Repository 04/11/2018 Unknown K21.9 - Reid, Nelson Active [place] Gastro-[facility]ophageal Community reflux disease Hospital without esophagitis / Repository K21.9(ICD-10) 04/24/2018 Unknown 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 / I25.10(ICD-10) 04/24/2018 Unknown I10 - Essential Moy Gee Active [place] (primary) Community hypertension / Hospital I10(ICD-10) Repository 03/11/2018 Active Syncope and collapse CHENTE WHITTAKER Active [place] / R55(ICD-10) R Clinic Other [place] Repository 03/10/2018 Active Bradycardia, CHENTE WHITTAKER Active [place] unspecified / R Clinic Other R00.1(ICD-10) [place] Repository 03/10/2018 Active Unspecified foreign CHENTE WHITTAKER Active [place] body in other parts R Clinic Other of respiratory tract [place] causing asphyxiation, Repository initial encounter / T17.800A(ICD-10) 06/16/2009 Active Biliary acute CHENTE WHITTAKER Active [place] pancreatitis without R Clinic Other necrosis or infection [place] / K85.10(ICD-10) Repository 03/11/2018 Admitting Unknown / CHENTE WHITTAKER Active [place] [facility] UNK(Unknown) [facility] Repository 01/12/2018 Active Unknown / NA Active [place] UNK(Unknown) Clinic Other [place] Repository 01/31/2018 Active Abdominal aortic VENKAT PANIAGUA Active [place] aneurysm, ruptured / [facility] Other I71.3(ICD-10) [place] Repository 01/28/2018 Active Encephalopathy, VENKAT PANIAGUA Active [place] unspecified / [facility] Other G93.40(ICD-10) [place] Repository 01/12/2018 Active Cardiac arrest, cause VENKAT PANIAGUA Active [place] unspecified / 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 Other [place] Repository 01/12/2018 Active Supraventricular VENKAT PANIAGUA Active [place] tachycardia / [facility] Other I47.1(ICD-10) [place] Repository 01/10/2018 Unknown R53.83 - Other Jack Olmedo Active [place] fatigue / Community R53.83(ICD-10) Hospital Repository 01/10/2018 Unknown R50.9 - Fever, Olmedo Jack Active [place] unspecified / Community R50.9(ICD-10) Hospital Repository 11/30/2017 Unknown Z01.818 - Encounter Sebastien, Active [place] for other [facility] preprocedural Hospital examination / Repository Z01.818(ICD-10) PROCEDURES PROCEDURES No Procedure Records FoundRESULTS RESULTS BEDSIDE GLUCOSE Collected: 05/24/2018 Status: F Source: [place] 6:28 AM [facility] REPOSITORY TYPE CODE TESTS RESULT OUT OF RANGE REFERENCE UNITS LAB L501.080 70-110 mg/dL Normal BEDSIDE GLU 93 Result Comment: MANAGEMENT OF PATIENT CARE PER NURSING PROTOCOL Performed By: #### L501.080 #### [facility] Laboratory Point of Care [address] [place] [address] CONSULTATION Observed: 05/23/2018 Status: F Source: [place] 4:01 PM [facility] REPOSITORY [facility] Medical Records Department [address] [place] [address] Consultation 05/22/18 1215 MR#: [id number] Acct: [id number] Name: NAVEEN AKINS Rep #: [id number] : 1940 78 From: Nivia Maciel MD PCP: Jack Olmedo MD Status: ADM IN Location: [place] [address] Reason for Consult Date of Consultation: 05/22/18 Reason for Consultation: Replacement of PEG tube History of Present Illness: The patient is a 78 year old M patient was initially admitted to the TCU, patient has a history status post his open AAA repair at [facility] in January 2018. Patient had multiple abdominal surgeries in order to close his abdomen as well. Patient did have a PEG tube placed at that time. While moving the PEG tube was inadvertently pulled. The nurses did place an 18 Monegasque Sanchez catheter at the site this occurred [...] Psychiatric History: No pertinent psych hx Lives: [facility] Smoking Status: Never smoker Tobacco Use: Non-smoker [...] Reviewed 05/05/18 @ 17:35 by Abimbola Morris, LITERACY TUTOR-C) Sister Factor 5 Leiden mutation, heterozygous Aneurysm [...] inadvertently pulled PEG tube, replacement with 20 Monegasque G-tube The balloon was taken down of the 18 Monegasque Sanchez. A 20 Monegasque [employer] Endovive G-tube was placed without difficulty. The balloon was blown up with 6 cc of air, the bolster was at 3-1/2 at the skin. A 20 Monegasque G-tube, reference [id number], lot [id number] . will check a contrast study prior to using the G-tube. Nivia Maciel M.D. Pager: [phone] [facility] [address] [place] [address], Outpatient Pavilion, [address] [place] [address] Office: [phone] Code Visit Inpatient E AND M: [id number] Init Hosp L2 05/23/18 1601 <Electronically signed by Nivia Maciel MD> Date Nivia Maciel MD Cosigner Signature (if applicable): Date CC: Jack Olmedo MD; Nivia Maciel MD Signed ABDOMEN SINGLE VIEW Observed: 05/23/2018 Status: F Source: [place] 12:37 PM [facility] REPOSITORY [facility] Imaging Services [address] [place] [address] Abdomen Single View MR#: [id number] Acct: [id number] Name: NAVEEN AKINS Rep #: [id number] : 1940 M 78 From: David Burr DO PCP: Jack Olmedo MD Status: ADM IN Study: Abdomen Single View Date of Exam: 05/23/18 Exam# [id number] Ordering Dr: Jh Gustafson MD STUDY: X-RAY [...] body of the stomach. Electronically Signed: David BurrDO at 20:53 EST Tel [phone], Service support , CC: Jack Olmedo MD; Jh Gustafson MD Clinical Trials Nurse: Signed BEDSIDE GLUCOSE Collected: 05/23/2018 Status: F Source: [place] 6:37 AM [facility] REPOSITORY TYPE CODE TESTS RESULT OUT OF RANGE REFERENCE UNITS LAB L501.080 70-110 mg/dL Normal BEDSIDE GLU 91 Result Comment: MANAGEMENT OF PATIENT CARE PER NURSING PROTOCOL Performed By: #### L501.080 #### [facility] Laboratory Point of Care [address] [place] [address] ABDOMEN SINGLE VIEW Observed: 05/22/2018 Status: F Source: [place] 12:07 PM [facility] REPOSITORY [facility] Imaging Services [address] [place] [address] Abdomen Single View MR#: [id number] Acct: [id number] Name: NAVEEN AKINS Rep #: [id number] : 1940 78 From: Gigi Rowe MD PCP: Jack Olmedo MD Status: ADM IN Study: Abdomen Single View Date of Exam: 05/22/18 Exam# [id number] Ordering Dr: Jh Gustafson MD STUDY: X-RAY [...] CC: Jack Olmedo MD; Jh Gustafson MD Clinical Trials Nurse: Signed BEDSIDE GLUCOSE Collected: 05/22/2018 Status: F Source: [place] 6:33 AM [facility] REPOSITORY TYPE CODE TESTS RESULT OUT OF REFERENCE UNITS RANGE LAB L501.080 70-110 mg/dL High BEDSIDE GLU 115 Result Comment: MANAGEMENT OF PATIENT CARE PER NURSING PROTOCOL Performed By: #### L501.080 #### [facility] Laboratory [place] [address] CBC W/DIFF, AUTOMATED Collected: 05/21/2018 Status: F Source: [place] 8:10 AM [facility] REPOSITORY TYPE CODE TESTS RESULT OUT OF [...] Lymph 1.54 Performed By: #### L100.0100 #### [facility] [address] [place], [place], [address] BASIC METABOLIC Collected: 05/21/2018 Status: F Source: [place] PROFILE (BMP) 8:10 AM [facility] REPOSITORY TYPE CODE TESTS RESULT OUT OF [...] GAP 8 Performed By: #### L500.2500 #### [facility] [address] [place], [address] BEDSIDE GLUCOSE Collected: 05/21/2018 Status: F Source: [place] 6:32 AM [facility] REPOSITORY TYPE CODE TESTS RESULT OUT OF RANGE REFERENCE UNITS LAB L501.080 70-110 mg/dL Normal BEDSIDE GLU 102 Result Comment: MANAGEMENT OF PATIENT CARE PER NURSING PROTOCOL Performed By: #### L501.080 #### [facility] Laboratory Point of Care [address] [place] [address] BEDSIDE GLUCOSE Collected: 05/20/2018 Status: F Source: [place] 6:40 AM [facility] REPOSITORY TYPE CODE TESTS RESULT OUT OF RANGE REFERENCE UNITS LAB L501.080 70-110 mg/dL Normal BEDSIDE GLU 100 Result Comment: MANAGEMENT OF PATIENT CARE PER NURSING PROTOCOL Performed By: #### L501.080 #### [facility] Laboratory Point of Care [address] [place] [address] BEDSIDE GLUCOSE Collected: 05/19/2018 Status: F Source: [place] 6:43 AM [facility] REPOSITORY TYPE CODE TESTS RESULT OUT OF RANGE REFERENCE UNITS LAB L501.080 70-110 mg/dL Normal BEDSIDE GLU 87 Result Comment: MANAGEMENT OF PATIENT CARE PER NURSING PROTOCOL Performed By: #### L501.080 #### [facility] Laboratory Point of Care [address] [place] [address] DISCHARGE SUMMARY Observed: 05/18/2018 Status: F Source: [place] 9:38 PM [facility] REPOSITORY [facility] Medical Records Department [address] [place] [address] Discharge Summary 05/18/18 2132 MR#: [id number] Acct: [id number] Name: NAVEEN AKINS Rep #: [id number] : 1940 78 From: Jh Gustafson MD PCP: Jack Olmedo MD Status: ADM IN Location: [place] [address] Discharge Date and Diagnosis Date of Admission: [...] Diet Food consistency:: Mechanical Soft/Ground Liquid Consistency:: Artois Thick Dietary Modifications:: Artois Thick Liquids Mechanical Soft Diet Type of Dietary Supplement:: Ensure Clear Is pt able to select menu?: No Diet Comments: BUILT UP [place]ENSILS-supervised meals-puree sides if pt/fam reqst-prune juice Clinical Impression(s) from Imaging Studies Chest X-Ray 05/07/18 15:38 KUB X-Ray 05/07/18 15:38 Labs (Last 48 Hours) Urine Color Yellow Urine Clarity Clear Urine pH 7.0 Ur Specific Camp 1.010 Urine Protein Negative Consultations 05/09/18 04:41 Consult: Onc/Wound/latin dance instructor Routine Comment: Reason for Consult:: Trach removed [...] not want any unnecessary medications. Discharge to [facility], Skilled for PT/OT/ST. - Physical Exam [...] Balance 460 / 460 3352 / 3352 1710 / 1711 Laboratory Tests Past 24 Hrs Urine Color Yellow Urine Clarity Clear POC Glucose POC Glucose 93 Discharge Diet: No Restrictions, - - Mechanical Soft, Artois thick. Discharge Activity: Return to Normal Activity, [...] PO BID tablet 05/18/18 Sodium Chloride 0.65% [Stanley Nasal Mccarley] 2 spray NASAL BID PRN PRN spray.btl 05/18/18 Primary Care Physician: Jack Olmedo MD [Primary Care Provider] - Please follow up with your Primary Care Physician in: 1 week. Please Follow Up With: Abdullahi Styles MD When: 2-3 weeks Please Follow Up With: PET SCAN HERE AT [facility] Disposition: Group Home facility Minutes spent on discharge:: 35 Patient [...] MD; Jh Gustafson MD Signed TRANSFER TO [facility] Observed: 05/18/2018 Status: F Source: [facility] 9:32 PM [facility] REPOSITORY [facility] Medical Records Department [address] [place] [address] Transfer to [facility] MR#: [id number] Acct: [id number] Name: NAVEEN AKINS Rep #: [id number] : 1940 78 From: Jh Gustafson MD PCP: Jack Olmedo MD Status: ADM IN NAVEEN AKINS [id number] (Patient) (Health Ins. Claim No.) (Day of Discharge to Facility) Certification of patient admission REQUIRED AT TIME OF ADMISSION. I CERTIFY THAT POST-HOSPITAL F SERVICES ARE REQUIRED TO BE GIVEN ON AN IN-PATIENT BASIS BECAUSE OF THE ABOVE NAMED PATIENT'S NEED FOR [facility] CARE ON A CONTINUING BASIS FOR THE CONDITION(S) FOR WHICH HE/SHE WAS RECEIVING IN-PATIENT HOSPITAL SERVICES PRIOR TO HIS/HER TRANSFER TO [facility]. 05/18/182131 <Electronically signed by Jh Gustafson MD> Date Jh Gustafson MD - Diet 05/07/18 10:45 Diet: Regular Diet Food consistency:: Mechanical Soft/Ground Liquid Consistency:: Artois Thick Dietary Modifications:: Artois Thick Liquids Mechanical Soft Diet Type of [...] Follow Up With: [facility]AN HERE [facility] 05/18/18 2132 <Electronically signed by Jh Gustafson MD> Date Jh Gustafson MD CC: Jack Olmedo MD Signed BEDSIDE GLUCOSE Collected: 05/18/2018 Status: F Source: [place] 6:51 AM [facility] REPOSITORY TYPE CODE TESTS RESULT OUT OF RANGE REFERENCE UNITS LAB L501.080 70-110 mg/dL Normal BEDSIDE GLU 93 Result Comment: MANAGEMENT OF PATIENT CARE PER NURSING PROTOCOL Performed By: #### L501.080 #### [facility] [place] [address] URINALYSIS, COMPLETE Collected: 05/18/2018 Status: F Source: [place] 3:20 AM [facility] REPOSITORY Order Comment: Order Date: 05/18/18 Comments: [...] URINE SEEN Performed By: #### L400.0001 #### [facility] [address] [place], [address] Observed: 05/18/2018 Status: F Source: [place] CULTURE, URINE 3:20 AM [facility] REPOSITORY Order Date: 05/18/18 Urine Culture ORGANISM 1: Mixed Gram Positive Organisms [place] Count 25,000-50,000 MIX CULTURE Mixed contaminants. Submit a new specimen if indicated. Performed By: #### M100.0650 #### [facility] [address] [place], [address] MODIFIED BARIUM Observed: 05/17/2018 Status: F Source: [place] SWALLOW STUDY 10:36 AM [facility] REPOSITORY [facility] Speech Pathology [address] [place] [address] Modified Barium Swallow Study MR#: [id number] Acct: [id number] Name: NAVEEN AKINS Rep #: [id number] : 1940 78 From: Viktoriya Hickey [facility]-TRANSVERSE ABDOMINAL MUSCLE SURGEON, M.A. PRIMARY / SECONDARY DIAGNOSIS: Moderate Oropharyngeal Dysphagia (R13.12) REFERRING PHYSICIAN: Dr. Gustafson CURRENT DIET: NPO with PEG supplementation for all nutrition/hydration/medication DENTITION: natural teeth MENTAL STATUS: Alert and oriented to name and RESPIRATORY STATUS: oxygenating on room air; breath sounds clear upon auscultation per most recent manager group. PREVIOUS MODIFIED BARIUM SWALLOW STUDY: unknown to this TRANSVERSE ABDOMINAL MUSCLE SURGEON prior to [facility] admission REASON FOR REFERRAL: history of dysphagia [...] of blood. The pt was lifeflighted to [facility] where on 01/12/2018 Dr. Paniagua performed emergent AAA repair. Pt then transferred to [facility] for recovery where he [...] treated with IV antibiotics. Pt currently on [facility] TCU for rehabilitation. While on TCU, pt [...] 1 Honey thickened liquid via cup: 2 Artois thickened liquid via cup: 2 Artois thickened liquid via cup:3 Thin liquids via [...] COUNT: [id number] G-CODES: SWALLOWING G8996 Current Status: SWALLOWING G8997 Goal Status: BALDEMAR Hickey MA,CCC-TRANSVERSE ABDOMINAL MUSCLE SURGEON 05/17/18 1036 <Electronically signed by Viktoriya Hickey [facility]-TRANSVERSE ABDOMINAL MUSCLE SURGEON, M.A.> Date Viktoriya Hickey [facility]-TRANSVERSE ABDOMINAL MUSCLE SURGEON, M.A. Co-Signature Required for all Medicare patients Date/Time Co-Signature CC: BEDSIDE GLUCOSE Collected: 05/17/2018 Status: F Source: [place] 6:41 AM [facility] REPOSITORY TYPE CODE TESTS RESULT OUT OF REFERENCE UNITS RANGE LAB L501.080 70-110 mg/dL High BEDSIDE GLU 113 Result Comment: MANAGEMENT OF PATIENT CARE PER NURSING PROTOCOL Performed By: #### L501.080 #### [facility] Laboratory Point of Care [address] [place] [address] BEDSIDE GLUCOSE Collected: 05/16/2018 Status: F Source: [place] 6:41 AM [facility] REPOSITORY TYPE CODE TESTS RESULT OUT OF RANGE REFERENCE UNITS LAB L501.080 70-110 mg/dL Normal BEDSIDE GLU 99 Result Comment: MANAGEMENT OF PATIENT CARE PER NURSING PROTOCOL Performed By: #### L501.080 #### [facility] Laboratory Point of Care [address] [place] [address] BEDSIDE GLUCOSE Collected: 05/15/2018 Status: F Source: [place] 6:35 AM [facility] REPOSITORY TYPE CODE TESTS RESULT OUT OF RANGE REFERENCE UNITS LAB L501.080 70-110 mg/dL Normal BEDSIDE GLU 98 Result Comment: MANAGEMENT OF PATIENT CARE PER NURSING PROTOCOL Performed By: #### L501.080 #### [facility] Laboratory Point of Care [address] [place] [address] BEDSIDE GLUCOSE Collected: 05/14/2018 Status: F Source: [place] 8:20 PM [facility] REPOSITORY TYPE CODE TESTS RESULT OUT OF RANGE REFERENCE UNITS LAB L501.080 70-110 mg/dL Normal BEDSIDE GLU 99 Result Comment: MANAGEMENT OF PATIENT CARE PER NURSING PROTOCOL Performed By: #### L501.080 #### [facility] Point of Care [address] [place] [address] BEDSIDE GLUCOSE Collected: 05/14/2018 Status: F Source: [place] 12:02 PM [facility] REPOSITORY TYPE CODE TESTS RESULT OUT OF REFERENCE UNITS RANGE LAB L501.080 70-110 mg/dL High BEDSIDE GLU 122 Result Comment: MANAGEMENT OF PATIENT CARE PER NURSING PROTOCOL Performed By: #### L501.080 #### [facility] Laboratory Point of Care [address] [place] [address] BEDSIDE GLUCOSE Collected: 05/14/2018 Status: F Source: [place] 6:39 AM [facility] REPOSITORY TYPE CODE TESTS RESULT OUT OF RANGE REFERENCE UNITS LAB L501.080 70-110 mg/dL Normal BEDSIDE GLU 92 Result Comment: MANAGEMENT OF PATIENT CARE PER NURSING PROTOCOL Performed By: #### L501.080 #### [facility] Laboratory Point of Care [address] [place] [address] CBC W/DIFF, AUTOMATED Collected: 05/14/2018 Status: F Source: [place] 5:17 AM [facility] REPOSITORY TYPE CODE TESTS RESULT OUT OF [...] Lymph 1.52 Performed By: #### L100.0100 #### [facility] [address] [place] [address]. [place], [place], [address] BASIC METABOLIC Collected: 05/14/2018 Status: F Source: [place] PROFILE (BMP) 5:17 AM [facility] REPOSITORY TYPE CODE TESTS RESULT OUT OF [...] GAP 9 Performed By: #### L500.2500 #### [facility] [address] [facility] [address] BEDSIDE GLUCOSE Collected: 05/13/2018 Status: F Source: [place] 6:42 AM [facility] REPOSITORY TYPE CODE TESTS RESULT OUT OF RANGE REFERENCE UNITS LAB L501.080 70-110 mg/dL Normal BEDSIDE GLU 101 Result Comment: MANAGEMENT OF PATIENT CARE PER NURSING PROTOCOL Performed By: #### L501.080 #### [facility] Laboratory Point of Care [address] [place] [address] BEDSIDE GLUCOSE Collected: 05/12/2018 Status: F Source: [place] 6:54 AM [facility] REPOSITORY TYPE CODE TESTS RESULT OUT OF RANGE REFERENCE UNITS LAB L501.080 70-110 mg/dL Normal BEDSIDE GLU 100 Result Comment: MANAGEMENT OF PATIENT CARE PER NURSING PROTOCOL Performed By: #### L501.080 #### [facility] Laboratory Point of Care [address] [facility] [place] [address] ABDOMEN/PEL W ORAL CONT Observed: 05/11/2018 Status: F Source: [place] ONLY 11:21 PM [facility] REPOSITORY [facility] Imaging Services [address] [place] [address] Abdomen/Pel W ORAL Cont Only MR#: [id number] Acct: [id number] Name: NAVEEN AKINS Rep #: [id number] : 1940 M 78 From: Miya Silva MD PCP: Jack Olmedo MD Status: REG CLI Study: Abdomen/Pel W ORAL Cont Only Date of Exam: 05/12/18 Exam# [id number] Ordering Dr: Jh Gustafson MD STUDY: CT [...] CC: Jack Olmedo MD; Jh Gustafson MD Clinical Trials Nurse: Signed BEDSIDE GLUCOSE Collected: 05/11/2018 Status: F Source: [place] 6:36 AM [facility] REPOSITORY TYPE CODE TESTS RESULT OUT OF RANGE REFERENCE UNITS LAB L501.080 70-110 mg/dL Normal BEDSIDE GLU 107 Result Comment: MANAGEMENT OF PATIENT CARE PER NURSING PROTOCOL Performed By: #### L501.080 #### [facility] Laboratory Point of Care [address] [facility] [place] [address] BEDSIDE GLUCOSE Collected: 05/10/2018 Status: F Source: [place] 6:27 AM [facility] REPOSITORY TYPE CODE TESTS RESULT OUT OF RANGE REFERENCE UNITS LAB L501.080 70-110 mg/dL Normal BEDSIDE GLU 101 Result Comment: MANAGEMENT OF PATIENT CARE PER NURSING PROTOCOL Performed By: #### L501.080 #### [facility] Laboratory Point of Care [address] [facility] [place] [address] 12 LEAD ELECTROCARDIOGRAM Observed: 05/09/2018 Status: F Source: [place] 3:46 PM [facility] REPOSITORY [facility] Cardiovascular Services [address] [place] [address] 12 Lead EKG 05/05/18 1043 MR#: [id number] Acct: [id number] Name: NAVEEN AKINS Kaylah Rep #: [id number] : 1940 78 From: Naveen Huffman MD Attending Dr: Corey Arizmendi Status: DIS IN Ordering Dr: Corey Arizmendi MD Date: 05/05/18 Location: [facility] Sex: M C Admitted: 05/05/18 Test Reason [...] Leftward axis Confirmed by NAVEEN HUFFMAN MD ([id number]), senior technical editor KATHY SILVA ([id number]) on 05/09/2018 3:45:49 PM Referred By: ARRON Confirmed By:NAVEEN HUFFMAN MD 05/09/18 9057 Date Naveen Huffman MD CC: Jack Olmedo MD; Corey Arizmendi Signed 12 LEAD ELECTROCARDIOGRAM Observed: 05/09/2018 Status: F Source: [place] 3:35 PM [facility] REPOSITORY [facility] Cardiovascular Services [address] [place] [address] 12 Lead EKG 05/04/18 2346 MR#: [id number] Acct: [id number] Name: NAVEEN AKINS Rep #: [id number] : 1940 78 From: Naveen Huffman MD Attending Dr: Corey Arizmendi Status: DIS IN Ordering Dr: Yuri Infante MD Date: 05/04/18 Location: [facility] Sex: M C Admitted: 05/05/18 Test Reason [...] T wave abnormality Abnormal ECG Confirmed by NAVEEN HUFFMAN MD ([id number]), senior technical editor KATHY SILVA ([id number]) on 05/09/2018 3:34:49 PM Referred By: ARELIS Confirmed By:NAVEEN HUFFMAN MD 05/09/18 1536 Date Naveen Huffman MD CC: Jack Olmedo MD; Corey Arizmendi; Yuri Infante MD Signed BEDSIDE GLUCOSE Collected: 05/09/2018 Status: F Source: [place] 6:37 AM [facility] REPOSITORY TYPE CODE TESTS RESULT OUT OF RANGE REFERENCE UNITS LAB L501.080 70-110 mg/dL Normal BEDSIDE GLU 102 Result Comment: MANAGEMENT OF PATIENT CARE PER NURSING PROTOCOL Performed By: #### L501.080 #### [facility] Laboratory Point of Care [address] [place] [address] HISTORY AND PHYSICAL Observed: 05/08/2018 Status: F Source: [place] EXAM 8:35 AM [facility] REPOSITORY [facility] Medical Records Department [address] [place] [address] History and Physical 05/06/18 1517 MR#: [id number] Acct: [id number] Name: NAVEEN AKINS Rep #: [id number] : 1940 78 From: Jh Gustafson MD PCP: Jack Olmedo MD Status: ADM IN Y Location: [facility] [place] [address] Problem List (1) Anoxic encephalopathy Status: Chronic [...] History (Last Reviewed 05/05/18 @ 17:35 by DINESH RosenbergC) Abdominal aortic aneurysm, ruptured (Chronic) I71.3 01/11/2018 [...] 05/05/18 @ 17:35 by Abimbola Morris NP-C) H/O abdominal aortic aneurysm repair Z98.890 7 [...] Psychiatric History: No pertinent psych hx Lives: [facility] Smoking Status: Never smoker Tobacco Use: Non-smoker [...] - Resident developed fever 05/07/2018, sent to [facility] ED, diagnosed with RUL pneumonia, Levaquin 750MG IV given, then 6 days PO. * Right lung nodule - 11mm, order PET scan to evaluate for malignancy. 05/08/18 0835 <Electronically signed by Jh Gustafson MD> Date Jh Gustafson MD Cosigner Signature: Date (if applicable) CC: Jack Olmedo MD; Jh Gustafson MD Signed EMERGENCY DEPARTMENT Observed: 05/07/2018 Status: F Source: [place] SUMMARY 11:55 PM [facility] REPOSITORY [facility] Medical Records Department [address] [place] [address] Emergency Department Summary 05/07/182137 MR#: [id number] Acct: [id number] Name: NAVEEN AKINS Rep #: [id number] : 1940 78 From: Mark Glass PCP: Jack Olmedo MD Status: REG ER - ER Visit Summary Date of Service: 05/07/18 Chief Complaint: Abnormal chest x-ray History of Present Illness: The patient is a 78 M sent here from TCU for an abnormal chest x-ray obtained today. Family present, reports patient complicated AAA rupture this past January leading to repair [facility]. Complication from wound. Patient has trach and [...] lobe nodule This note was generated with f4samuraiation software. It may contain incorrect words, spelling, [...] your Primary Care Provider. Call [facility] ([phone]) or report to the closest Emergency Room. Call 911 if necessary. 05/07/18 9740 <Electronically signed by Mark Glass> Date Mark Glass Cosigner Signature (If Indicated): Date CC: Jack Olmedo MD ABDOMEN/PELVIS W IV CONT Observed: 05/07/2018 Status: F Source: [place] ONLY 9:03 PM [facility] REPOSITORY [facility] Imaging Services [address] [place] [address] Abdomen/Pelvis W IV Cont ONLY MR#: [id number] Acct: [id number] Name: NAVEEN AKINS Rep #: [id number] : 1940 M 78 From: Michael Moss DO PCP: Honorio LOREDO,Jack Status: DEP ER Study: Abdomen/Pelvis W IV Cont ONLY Date of Exam: 05/07/18 Exam# [id number] Ordering Dr: Mark Michaels DO STUDY: CT [...] Michael Moss DO at 21:51 EST Tel [phone], Service support , CC: Jack Olmedo MD; Mark Michaels Clinical Trials Nurse: Signed URINALYSIS, COMPLETE Collected: 05/07/2018 Status: F Source: [place] 8:51 PM [facility] REPOSITORY Order Comment: Order Date: 05/07/18 How [...] URINE SEEN Performed By: #### L400.0001 #### [facility] Laboratory [address] [place], [address] CHEST WITH CONTRAST Observed: 05/07/2018 Status: F Source: [place] 8:36 PM [facility] REPOSITORY [facility] Imaging Services [address] [place] [address] Chest WITH Contrast MR#: [id number] Acct: [id number] Name: NAVEEN AKINS Rep #: [id number] : 1940 M 78 From: Keely Castellano MD PCP: Jack Olmedo MD Status: REG ER Study: Chest WITH Contrast Date of Exam: 05/07/18 Exam# [id number] Ordering Dr: Mark Michaels DO STUDY: CT [...] Castellano MD at 23:39 EST Tel Direct: [phone], Service support , CC: Jack Olmedo MD; Mark Michaels Clinical Trials Nurse: Signed Observed: 05/07/2018 Status: F Source: [place] RESPIRATORY PANEL 4:45 PM [facility] MOLECULAR REPOSITORY Order Date: 05/07/18 RP PANEL [...] acid amplification Performed By: #### M100.638 #### [facility] Laboratory [address] [place] [address]. [place], [address] ABDOMEN SINGLE VIEW Observed: 05/07/2018 Status: F Source: [place] (PORTABLE) 3:47 PM [facility] HOSPITAL REPOSITORY [facility] Imaging Services [address] [place] [address] Abdomen Single View (Portable) MR#: [id number] Acct: [id number] Name: NAVEEN AKINS Rep #: [id number] : 1940 M 78 From: El Malik MD PCP: Jack Olmedo MD Status: ADM IN Study: Abdomen Single View (Portable) Date of Exam: 05/07/18 Exam# [id number] Ordering Dr: Jh Gustafson MD STUDY: X-RAY [...] CC: Jack Olmedo MD; Jh Gustafson MD Clinical Trials Nurse: Signed CHEST 1 VIEW Observed: 05/07/2018 Status: F Source: [place] (PORTABLE) 3:47 PM [facility] HOSPITAL REPOSITORY [facility] Imaging Services [address] [place] [address] Chest 1 View (Portable) MR#: [id number] Acct: [id number] Name: NAVEEN AKINS Rep #: [id number] : 1940 M 78 From: El Malik MD PCP: Jack Olmedo MD Status: ADM IN Study: Chest 1 View (Portable) Date of Exam: 05/07/18 Exam# [id number] Ordering Dr: Jh Gustafson MD STUDY: X-RAY [...] CC: Jack Olmedo MD; Jh Gustafson MD Clinical Trials Nurse: Signed DISCHARGE SUMMARY Observed: 05/07/2018 Status: F Source: [place] 12:23 PM [facility] REPOSITORY [facility] Medical Records Department [address] [place] [address] Discharge Summary 05/06/18 1445 MR#: [id number] Acct: [id number] Name: NAVEEN AKINS Kaylah Rep #: [id number] : 1940 78 From: Tarik TAPIA PCP: Jack Olmedo MD Status: DIS IN Y Location: [place] [id number] <Tarik Darby - Last Filed: 05/06/18 14:49> Discharge Date and Diagnosis Date of Admission: 05/05/18 Date of Discharge: 05/06/18 - Primary Discharge Diagnosis TIA CKD Dysphagia Hx Recent AAA disection with succesful repair Hx recent Cardiac arrest HTN Debility GERD Severe protein calorie malnutrition Thrush - Secondary Discharge Diagnosis Chronic Problems (Last Reviewed 05/05/18 @ 17:35 by Abimbola Morris NP-C) Malnutrition (Chronic) Hyperlipidemia (Chronic) Iron deficiency anemia [...] CT/CTA Head W/WO Contrast IMPRESSION: 1. Patent nondalton of Rosenbaum. No intracranial aneurysm, vascular malformation, [...] pmhx of ruptured AAA, cardiac arrest at [facility], subsequently has been undergoing rehab in the [...] Diagnoses (Choose all that apply): None applicable <Corey Arizmendi E - Last Filed: 05/07/18 12:22> Discharge [...] are stable. This note was generated with [employer]dMob dictation software. It may contain incorrect words, [...] Total 100 / 100 Balance 1810 / 181 1676 / 1676 Laboratory Tests Past 24 Hrs Hgb 9.4 L Hct 28.7 L Disposition: Group Home facility Minutes spent on discharge:: 26 Patient Condition:: Stable Meaningful Use Info Meaningful Use Diagnoses (Choose all that apply): None applicable Code Visit Inpatient E AND M: 85515 Disch Hosp 05/06/18 1502 <Electronically signed by Tarik Darby PA> Date Tarik TAPIA 05/07/18 1223<Electronically signed by Corey Arizmendi MD> Cosigner Signature (if applicable): Date Corey Arizmendi MD CC: WILLIE Darby; Jack Olmedo MD; Corey Arizmendi; Abdullahi Styles MD Signed CBC W/DIFF, AUTOMATED Collected: 05/07/2018 Status: F Source: [place] 6:51 AM [facility] REPOSITORY TYPE CODE TESTS RESULT OUT OF [...] Lymph 1.55 Performed By: #### L100.0100 #### [facility] Laboratory [address] [place], [address] BASIC METABOLIC Collected: 05/07/2018 Status: F Source: [place] PROFILE ([facility]) 6:51 AM [facility] REPOSITORY TYPE CODE TESTS RESULT OUT OF [...] GAP 8 Performed By: #### L500.2500 #### [facility] Laboratory [address] [place], [address] TRANSFER TO [facility] Observed: 05/06/2018 Status: F Source: [facility] 3:35 PM [facility] REPOSITORY [facility] Medical Records Department [address] [place] [address] Transfer to [facility] Care MR#: [id number] Acct: [id number] Name: NAVEEN AKINS Rep #: [id number] : 1940 78 From: Tarik TAPIA PCP: Jack Olmedo MD Status: DIS IN NAVEEN AKINS (Patient) (Health Ins. Claim No.) (Day of Discharge to Facility) Certification of patient admission REQUIRED AT TIME OF ADMISSION. I CERTIFY THAT POST-HOSPITAL ECF SERVICES ARE REQUIRED TO BE GIVEN ON AN IN-PATIENT BASIS BECAUSE OF THE ABOVE NAMED PATIENT'S NEED FOR [facility] CARE ON A CONTINUING BASIS FOR THE CONDITION(S) FOR WHICH HE/SHE WAS RECEIVING IN-PATIENT HOSPITAL SERVICES PRIOR TO HIS/HER TRANSFER TO [facility]. 05/06/18 1220 <Electronically signed by Tarik TAPIA> Date Tarik TAPIA - Diet 05/05/18 15:14 Diet: Nothing Per Oral Dietary Modifications:: Mechanical Soft Diet Artois Thick Liquids Is pt able to select menu?: No OK for Pills. Per Building Custodian: Rec continuous feedlings of TwoCal HN at [...] Status: F Source: [place] HEMATOCRIT 6:28 AM [facility] REPOSITORY TYPE CODE TESTS RESULT OUT OF RANGE REFERENCE UNITS LAB L100.1300 13.0-16.5 g/dl Low HGB 9.4 LAB L100.1400 40-54 % Low HCT 28.7 Performed By: #### L100.0600 #### [facility] Laboratory [address] [place], [address] PULMONARY VISIT REPORT Observed: 05/05/2018 Status: F Source: [place] 5:54 PM [facility] REPOSITORY [facility] [address] [place] [address] OFFICE VISIT Date of Service: 05/03/18 MR#: [id number] Acct: [id number] Name: NAVEEN AKINS Rep #: [id number] : 1940 Provider: Abimbola Morris Age/Sex: 78/M Location: [facility] Status: Signed Assessment AND Plan Problems 1. [...] Instructions Plan Detail Follow Up 3 Months ([facility]) [facility] Hospital FU: Chief Complaint: Weakness HPI Comments Details: Patient had his trach removed about 1 week ago. Daughter states that the patient just became aware within the last week the patient has become more aware of what has happened. MORROW. Patient has been in [facility], [facility] and [facility]. AAA ruptured 01/11/18. Not using any aeresols regularly. He was given albuterol once yesterday and 2 days prior at daughters request. 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 Required: No Accompanied by: Daughter Is patient [...] <Electronically signed by Abimbola STRAUSS> Date Abimbola MONTIELC Cosigner Signature: Date (if applicable) CC: Jack Olmedo MD ECHOCARDIOGRAM COMPLETE Observed: 05/05/2018 Status: F Source: [place] 5:37 PM [facility] REPOSITORY [facility] Cardiovascular Services [address] [place] [address] Echo Complete 05/05/18 0827 MR#: [id number] Acct: [id number] Name: NAVEEN AKINS Rep #: [id number] : 1940 78 From: Naveen Huffman MD Attending Dr: Corey Arizmendi Status: ADM BURKE Ordering Dr: Genaro Galeano MD Date: 05/05/18 Location: [facility] Sex: M C Admitted: 05/05/18 Reason For [...] OLMEDO Performed By: Gus Mena RCS 05/05/18 1736 Date Naveen Huffman MD CC: Jack Olmedo MD; [facility]; Genaro Galeano MD Date Dictated: 05/05/18 0827 Date Transcribed: 05/05/18 1736 Clinical Trials Nurse: Signed CONSULTATION Observed: 05/05/2018 Status: F Source: [place] 1:11 PM [facility] REPOSITORY [facility] Medical Records Department [address] [place] [address] Consultation 05/05/18 1014 MR#: [id number] Acct: [id number] Name: NAVEEN AKINS Rep #: [id number] : 1940 78 From: Abdullahi Styles MD PCP: Jack Olmedo MD Status: ADM BURKE Y Location: [place] [address] Reason for Consult Date of Consultation: 05/05/18 [...] underwent cpr for entire helicopter [facility]. son notes progressive improvement in cognition since [...] had left facial droop and decreased hand binder roller on the left side. Stroke alert was [...] W/WO CONTRAST Observed: 05/05/2018 Status: F Source: [place] 1:10 PM [facility] REPOSITORY [facility] Imaging Services [address] [place] [address] Brain W/WO Contrast MR#: [id number] Acct: [id number] Name: NAVEEN AKINS Rep #: [id number] : 1940 M 78 From: Benigno Fatima MD PCP: Jack Olmedo MD Status: ADM IN Study: Brain W/WO Contrast Date of Exam: 05/05/18 Exam# [id number] Ordering Dr: Abdullahi Styles MD STUDY: MRI [...] CC: Jack Olmedo MD; Abdullahi Styles MD Clinical Trials Nurse: Signed BEDSIDE GLUCOSE Collected: 05/05/2018 Status: F Source: [place] 12:56 PM [facility] REPOSITORY TYPE CODE TESTS RESULT OUT OF RANGE REFERENCE UNITS LAB L501.080 70-110 mg/dL Normal BEDSIDE GLU 110 Result Comment: MANAGEMENT OF PATIENT CARE PER NURSING PROTOCOL Performed By: #### L501.080 #### [facility] Laboratory Point of Care [place] [address] DISCHARGE SUMMARY Observed: 05/05/2018 Status: F Source: [place] 8:29 AM [facility] REPOSITORY [facility] Medical Records Department [address] [place] [address] Discharge Summary 05/05/18825 MR#: [id number] Acct: [id number] Name: NAVEEN AKINS Rep #: [id number] : 1940 78 From: Jh Gustafson MD PCP: Honorio LOREDO,Jack Status: DIS IN Y Location: [place] [address] Discharge Date and Diagnosis - Problem List [...] sided weakness, stroke team activated. Discharge to [facility] Emergency Department for evaluation, admission to hospital. [...] 112 H Discharge Diet: - - Puree, Artois thick, Twocal 40ML/hour. Discharge Activity: Use Walker [...] Nelson Mathews When: July 2018 Disposition: Acute [facility] Hospital Minutes spent on discharge:: 30 Patient Condition:: Guarded Medical Necessity - Tobacco Use Smoking Status: Never smoker Tobacco Use: Non-smoker Meaningful Use Info Meaningful Use Diagnoses (Choose all that apply): None applicable 05/05/18828 <Electronically signed by Jh Gustafson MD> Date Jh Gustafson MD Cosigner Signature (if applicable): Date CC: Jack Olmedo MD; Jh Gustafson MD Signed DISCHARGE INSTRUCTION Observed: 05/05/2018 Status: F Source: [place] 8:26 AM [facility] REPOSITORY [facility] Medical Records Department [address] [place] [address] Instructions for Home/Discharge Instructions 05/05/18823 MR#: [id number] Acct: [id number] Name: NAVEEN AKINS Rep #: [id number] : 1940 78 From: Jh Gustafson MD PCP: Jack Olmedo MD Status: DIS IN - Discharge Diagnoses Current Active Problems: Current Active and Chronic Problems (Last Reviewed 05/05/18 @ 04:49 by Genaro Galeano MD) Stroke-like symptoms (Acute) Your food should be the consistency of: Puree Your liquids should be the consistency of: Artois Thick Discharge Activity: Use Walker Weight Bearing [...] When: July 2018 Proposed Discharge Date: 05/05/18 05/05/18 0826 <Electronically signed by Jh Gustafson MD> Date Jh Gustafson MD CC: Jack Olmedo MD HISTORY AND PHYSICAL Observed: 05/05/2018 Status: F Source: [place] EXAM 5:26 AM [facility] REPOSITORY [facility] Medical Records Department [address] [place] [address] History and Physical 05/05/18 0352 MR#: [id number] Acct: [id number] Name: NAVEEN AKINS Rep #: [id number] : 1940 78 From: Genaro Galeano MD PCP: Jack Olmedo MD Status: ADM BURKE Y Location: [place] [address] Problem List (1) Stroke-like symptoms Status: Acute [...] had left facial droop and decreased hand binder roller on the left side. Stroke alert was [...] Reports: Focal weakness - Decrease left hand binder roller. Denies: Numbness, Tingling Psychiatric: Denies: Anxiety, Depression, [...] Initially patient thought that he was at [facility]. Patient did not know the [...] continued. Code Visit OBSV E AND M: 34657 Initial observation care L3 05/05/18 0526 <Electronically signed by Genaro Galeano MD> Date Genaro Galeano MD Cosigner Signature: Date (if applicable) CC: Jack Olmedo MD; Genaro Galeano MD Signed BEDSIDE GLUCOSE Collected: 05/05/2018 Status: F Source: [place] 3:30 AM [facility] REPOSITORY TYPE CODE TESTS RESULT OUT OF RANGE REFERENCE UNITS LAB L501.080 70-110 mg/dL Normal BEDSIDE GLU 93 Result Comment: MANAGEMENT OF PATIENT CARE PER NURSING PROTOCOL Performed By: #### L501.080 #### [facility] Laboratory Point of Care [address] [place], [place] [address] TROPONIN-I Collected: 05/05/2018 Status: F Source: [place] 2:35 AM [facility] REPOSITORY TYPE CODE TESTS RESULT OUT OF RANGE REFERENCE UNITS LAB L501.4010 <0.045 ng/mL Normal < 0.015 TROPONIN-I Result Comment: TROPONIN-I EXPECTED VALUES <0.045 Negative 0.045 - 0.590 Consistent with Cardiac Damage > OR = 0.600 Critical Value Not every elevated troponin is indicative of PA. These values should be used with clinical judgement in examining the patient's clinical picture for diagnosis. To establish a diagnosis of PA versus myocardial injury, there must be a demonstrated rise and/or fall in the troponin values, in addition to ischemic symptoms, EKG changes, new regional wall motion abnormality, and/or angiographical evidence. PLEASE NOTE: REFERENCE RANGES EDITED 17 Performed By: #### L501.4010 #### [facility] Laboratory [address] [facility] [place], [place], [address] BASIC METABOLIC Collected: 05/05/2018 Status: F Source: [place] PROFILE (BMP) 2:35 AM [facility] REPOSITORY TYPE CODE TESTS RESULT OUT OF [...] 11 Performed By: #### L500.2500, L500.4100 #### [facility] Laboratory [address] [place], [address] LIPID PROFILE Collected: 05/05/2018 Status: F Source: [place] 2:35 AM [facility] REPOSITORY TYPE CODE TESTS RESULT OUT OF [...] 35 Performed By: #### L500.2500, L500.4100 #### [facility] [address] [facility] [place], [address] EMERGENCY DEPARTMENT Observed: 05/05/2018 Status: F Source: [place] SUMMARY 1:08 AM [facility] REPOSITORY [facility] Medical Records Department [address] [place], [place] [address] [address] Emergency Department Summary 05/05/18 0104 MR#: [id number] Acct: [id number] Name: NAVEEN AKINS Rep #: [id number] : 1940 78 From: Yuri Infante MD PCP: Jack Olmedo MD Status: REG [...] Impression: Stroke This note was generated with [employer] dictation software. It may contain incorrect words, [...] problems, contact your Primary Care Provider. Call [facility] ([phone]) or report to the closest Emergency Room. Call 911 if necessary. 05/05/18 0108 <Electronically signed by Yuri Infante MD> Date Yuri Infante MD Cosigner Signature (If Indicated): Date CC: Jack Olmedo MD CHEST 1 VIEW Observed: 05/04/2018 Status: F Source: [place] 11:46 PM [facility] REPOSITORY [facility] Imaging Services [address] [place] [address] Chest 1 View MR#: [id number] Acct: [id number] Name: NAVEEN AKINS Rep #: [id number] : 1940 78 From: Nehemiah Earl MD PCP: Jack Olmedo MD Status: [facility] ER Study: Chest 1 View Date of Exam: 05/04/18 Exam# [id number] Ordering Dr: Yuri Infante MD STUDY: X-RAY [...] CC: Jack Olmedo MD; Yuri Infante MD Clinical Trials Nurse: Signed CTA NECK W/WO Observed: 05/04/2018 Status: F Source: [place] CONTRAST 11:46 PM [facility] REPOSITORY [facility] Imaging Services [address] [place] [address] CTA Neck W/WO Contrast MR#: [id number] Acct: [id number] Name: NAVEEN AKINS Rep #: [id number] : 1940 78 From: Kristie Rubio MD PCP: Jack Olmedo MD Status: [facility] ER Study: CTA Neck W/WO Contrast Date of Exam: 05/04/18 Exam# [id number] Ordering Dr: Yuri Infante MD HISTORY: LEFT [...] on 05/05/2018 00:54:31 (ET). Electronically Signed: Kristie Rubio, at 0:29 EST Tel , Service support , CC: Jack Olmedo MD; Yuri Infante MD Clinical Trials Nurse: Signed CTA HEAD W/WO Observed: 05/04/2018 Status: F Source: [place] CONTRAST 11:46 PM [facility] REPOSITORY [facility] Imaging Services [address] [place] [address] CTA Head W/WO Contrast MR#: [id number] Acct: [id number] Name: NAVEEN AKINS Rep #: [id number] : 1940 M 78 From: Kristie Rubio MD PCP: Jack Olmedo MD Status: REG ER Study: CTA Head W/WO Contrast Date of Exam: 05/04/18 Exam# [id number] Ordering Dr: Yuri Infante MD HISTORY: LEFT SIDE FACIAL DROOP TECHNIQUE: Routine nondalton of Rosenbaum/brain CT angiogram protocol was performed [...] CT/CTA Head W/WO Contrast IMPRESSION: 1. Patent nondalton of Rosenbaum. No intracranial aneurysm, vascular malformation, [...] CC: Jack Olmedo MD; Yuri Infante MD Clinical Trials Nurse: Signed CBC W/DIFF, AUTOMATED Collected: 05/04/2018 Status: F Source: [place] 11:45 PM [facility] REPOSITORY TYPE CODE TESTS RESULT OUT OF [...] Lymph 2.45 Performed By: #### L100.0100 #### [facility] [address] [facility] [place], [place], [id number] PROTHROMBIN TIME W/INR Collected: 05/04/2018 Status: F Source: [place] 11:45 PM [facility] REPOSITORY TYPE CODE TESTS RESULT OUT OF RANGE REFERENCE UNITS LAB L300.4150 11.7-14.9 SECONDS High PROTIME 15.1 LAB L300.4200 Normal INR 1.2 Performed By: #### L300.3900, L300.4310 #### [facility] [address] [facility] [place], [address] PARTIAL THROMBOPLAST Collected: 05/04/2018 Status: F Source: [place] TIME 11:45 PM [facility] REPOSITORY TYPE CODE TESTS RESULT OUT OF REFERENCE UNITS RANGE LAB L300.4310 24.1-36.2 Seconds High PTT 45.7 Performed By: #### L300.3900, L300.4310 #### [facility] [address] [address] [place], [place], [id number] BASIC METABOLIC Collected: 05/04/2018 Status: F Source: [place] PROFILE (BMP) 11:45 PM [facility] REPOSITORY TYPE CODE TESTS RESULT OUT OF [...] 6 Performed By: #### L500.2500, L501.4010 #### [facility] [address] [place], [address] TROPONIN-I Collected: 05/04/2018 Status: F Source: [place] 11:45 PM [facility] REPOSITORY TYPE CODE TESTS RESULT OUT OF RANGE REFERENCE UNITS LAB L501.4010 <0.045 ng/mL Normal < 0.015 TROPONIN-I Result Comment: TROPONIN-I EXPECTED VALUES <0.045 Negative 0.045 - 0.590 Consistent with Cardiac Damage > OR = 0.600 Critical Value Not every elevated troponin is indicative of PA. These values should be used with clinical judgement in examining the patient's clinical picture for diagnosis. To establish a diagnosis of PA versus myocardial injury, there must be a demonstrated rise and/or fall in the troponin values, in addition to ischemic symptoms, EKG changes, new regional wall motion abnormality, and/or angiographical evidence. PLEASE NOTE: REFERENCE RANGES EDITED 17 Performed By: #### L500.2500, L501.4010 #### [facility] [address] [place], [address] HEMOGLOBIN A1C Collected: 05/04/2018 Status: F Source: [place] 11:45 PM [facility] REPOSITORY TYPE CODE TESTS RESULT OUT OF RANGE REFERENCE UNITS LAB L501.9985 4.2-6.3 % Normal HGB A1C 4.5 Performed By: #### L501.9985 #### [facility] [address] [place], [address] BEDSIDE GLUCOSE Collected: 05/04/2018 Status: F Source: [place] 11:44 PM [facility] REPOSITORY TYPE CODE TESTS RESULT OUT OF RANGE REFERENCE UNITS LAB L501.080 70-110 mg/dL Normal BEDSIDE GLU 104 Result Comment: MANAGEMENT OF PATIENT CARE PER NURSING PROTOCOL Performed By: #### L501.080 #### [facility] Point of Care [address] [place], [place] [address] BRAIN/HEAD WITHOUT Observed: 05/04/2018 Status: F Source: [place] CONTRAST 11:29 PM [facility] REPOSITORY [facility] Imaging Services [address] [place] [address] Brain/Head without Contrast MR#: [id number] Acct: [id number] Name: NAVEEN AKINS Rep #: [id number] : 1940 M 78 From: El Malik MD PCP: Jack Olmedo MD Status: [facility] ER Study: Brain/Head without Contrast Date of Exam: 05/04/18 Exam# [id number] Ordering Dr: Genaro Galeano MD STUDY: CT [...] CT/Brain/Head without Contrast CC: Jack Olmedo MD; Genrao Galeano MD Clinical Trials Nurse: Signed BEDSIDE GLUCOSE Collected: 05/04/2018 Status: F Source: [place] 11:24 PM [facility] REPOSITORY TYPE CODE TESTS RESULT OUT OF REFERENCE UNITS RANGE LAB L501.080 70-110 mg/dL High BEDSIDE GLU 112 Result Comment: MANAGEMENT OF PATIENT CARE PER NURSING PROTOCOL Performed By: #### L501.080 #### [facility] Point of Care [address] [place] [address] BEDSIDE GLUCOSE Collected: 05/04/2018 Status: F Source: [place] 6:36 AM [facility] REPOSITORY TYPE CODE TESTS RESULT OUT OF RANGE REFERENCE UNITS LAB L501.080 70-110 mg/dL Normal BEDSIDE GLU 100 Result Comment: MANAGEMENT OF PATIENT CARE PER NURSING PROTOCOL Performed By: #### L501.080 #### [facility] Point of Care [address] [place] [address] CBC W/DIFF, AUTOMATED Collected: 05/04/2018 Status: F Source: [place] 5:20 AM [facility] REPOSITORY TYPE CODE TESTS RESULT OUT OF [...] Lymph 1.45 Performed By: #### L100.0100 #### [facility] [address] [place], [place], [address] COMPREHENSIVE METABOLIC Collected: 05/04/2018 Status: F Source: [place] [facility] 5:20 AM [facility] REPOSITORY TYPE CODE TESTS RESULT OUT OF [...] GAP 6 Performed By: #### L500.4050 #### [facility] [address] [place], [address] BEDSIDE GLUCOSE Collected: 05/03/2018 Status: F Source: [place] 7:35 AM [facility] REPOSITORY TYPE CODE TESTS RESULT OUT OF RANGE REFERENCE UNITS LAB L501.080 70-110 mg/dL Normal BEDSIDE GLU 103 Result Comment: Orders Followed MANAGEMENT OF PATIENT CARE PER NURSING PROTOCOL Performed By: #### L501.080 #### [facility] [place] [address] CBC W/DIFF, AUTOMATED Collected: 05/03/2018 Status: F Source: [place] 5:20 AM [facility] REPOSITORY TYPE CODE TESTS RESULT OUT OF [...] Lymph 1.98 Performed By: #### L100.0100 #### [facility] [address] [place], [address] BASIC METABOLIC Collected: 05/03/2018 Status: F Source: [place] PROFILE (BMP) 5:20 AM [facility] REPOSITORY TYPE CODE TESTS RESULT OUT OF [...] GAP 9 Performed By: #### L500.2500 #### [facility] [address] [place], [place], [address] BEDSIDE GLUCOSE Collected: 05/02/2018 Status: F Source: [place] 7:36 AM [facility] REPOSITORY TYPE CODE TESTS RESULT OUT OF RANGE REFERENCE UNITS LAB L501.080 70-110 mg/dL Normal BEDSIDE GLU 98 Result Comment: MANAGEMENT OF PATIENT CARE PER NURSING PROTOCOL Performed By: #### L501.080 #### [facility] Point of Care [address] [place] [address] BEDSIDE GLUCOSE Collected: 05/01/2018 Status: F Source: [place] 6:32 AM [facility] REPOSITORY TYPE CODE TESTS RESULT OUT OF RANGE REFERENCE UNITS LAB L501.080 70-110 mg/dL Normal BEDSIDE GLU 96 Result Comment: MANAGEMENT OF PATIENT CARE PER NURSING PROTOCOL Performed By: #### L501.080 #### [facility] Point of Care [address] [place] [address] BEDSIDE GLUCOSE Collected: 04/30/2018 Status: F Source: [place] 6:37 AM [facility] REPOSITORY TYPE CODE TESTS RESULT OUT OF REFERENCE UNITS RANGE LAB L501.080 70-110 mg/dL High BEDSIDE GLU 114 Result Comment: MANAGEMENT OF PATIENT CARE PER NURSING PROTOCOL Performed By: #### L501.080 #### [facility] Point of Care [address] [place] [address] BEDSIDE GLUCOSE Collected: 04/29/2018 Status: F Source: [place] 6:52 AM [facility] REPOSITORY TYPE CODE TESTS RESULT OUT OF REFERENCE UNITS RANGE LAB L501.080 70-110 mg/dL High BEDSIDE GLU 117 Result Comment: MANAGEMENT OF PATIENT CARE PER NURSING PROTOCOL Performed By: #### L501.080 #### [facility] Point of Care [address] [place] [address] BEDSIDE GLUCOSE Collected: 04/28/2018 Status: F Source: [place] 7:43 AM [facility] REPOSITORY TYPE CODE TESTS RESULT OUT OF REFERENCE UNITS RANGE LAB L501.080 70-110 mg/dL High BEDSIDE GLU 116 Result Comment: MANAGEMENT OF PATIENT CARE PER NURSING PROTOCOL Performed By: #### L501.080 #### [facility] Point of Care [address] [place] [address] BEDSIDE GLUCOSE Collected: 04/27/2018 Status: F Source: [place] 6:31 AM [facility] REPOSITORY TYPE CODE TESTS RESULT OUT OF RANGE REFERENCE UNITS LAB L501.080 70-110 mg/dL Normal BEDSIDE GLU 100 Result Comment: MANAGEMENT OF PATIENT CARE PER NURSING PROTOCOL Performed By: #### L501.080 #### [facility] Point of Care [address] [place] [address] BEDSIDE GLUCOSE Collected: 04/26/2018 Status: F Source: [place] 2:13 PM [facility] REPOSITORY TYPE CODE TESTS RESULT OUT OF RANGE REFERENCE UNITS LAB L501.080 70-110 mg/dL Normal BEDSIDE GLU 98 Result Comment: MANAGEMENT OF PATIENT CARE PER NURSING PROTOCOL Performed By: #### L501.080 #### [facility] Point of Care [address] [place] [address] BEDSIDE GLUCOSE Collected: 04/26/2018 Status: F Source: [place] 6:30 AM [facility] REPOSITORY TYPE CODE TESTS RESULT OUT OF RANGE REFERENCE UNITS LAB L501.080 70-110 mg/dL Normal BEDSIDE GLU 104 Result Comment: MANAGEMENT OF PATIENT CARE PER NURSING PROTOCOL Performed By: #### L501.080 #### [facility] Point of Care [address] [place] [address] BASIC METABOLIC Collected: 04/26/2018 Status: F Source: [place] PROFILE (BMP) 5:15 AM [facility] REPOSITORY TYPE CODE TESTS RESULT OUT OF [...] GAP 9 Performed By: #### L500.2500 #### [facility] [address] [facility] [address] BEDSIDE GLUCOSE Collected: 04/25/2018 Status: F Source: [place] 6:25 AM [facility] REPOSITORY TYPE CODE TESTS RESULT OUT OF RANGE REFERENCE UNITS LAB L501.080 70-110 mg/dL Normal BEDSIDE GLU 109 Result Comment: MANAGEMENT OF PATIENT CARE PER NURSING PROTOCOL Performed By: #### L501.080 #### [facility] Point of Care [address] [place] [address] BEDSIDE GLUCOSE Collected: 04/24/2018 Status: F Source: [place] 6:40 AM [facility] REPOSITORY TYPE CODE TESTS RESULT OUT OF REFERENCE UNITS RANGE LAB L501.080 70-110 mg/dL High BEDSIDE GLU 134 Result Comment: MANAGEMENT OF PATIENT CARE PER NURSING PROTOCOL Performed By: #### L501.080 #### [facility] Point of Care [address] [place] [address] BEDSIDE GLUCOSE Collected: 04/22/2018 Status: F Source: [place] 6:44 AM [facility] REPOSITORY TYPE CODE TESTS RESULT OUT OF RANGE REFERENCE UNITS LAB L501.080 70-110 mg/dL Normal BEDSIDE GLU 105 Result Comment: MANAGEMENT OF PATIENT CARE PER NURSING PROTOCOL Performed By: #### L501.080 #### [facility] Point of Care [address] [place] [address] BEDSIDE GLUCOSE Collected: 04/21/2018 Status: F Source: [place] 6:25 AM [facility] REPOSITORY TYPE CODE TESTS RESULT OUT OF REFERENCE UNITS RANGE LAB L501.080 70-110 mg/dL High BEDSIDE GLU 111 Result Comment: MANAGEMENT OF PATIENT CARE PER NURSING PROTOCOL Performed By: #### L501.080 #### [facility] Point of Care [address] [place] [address] BEDSIDE GLUCOSE Collected: 04/20/2018 Status: F Source: [place] 6:24 AM [facility] REPOSITORY TYPE CODE TESTS RESULT OUT OF REFERENCE UNITS RANGE LAB L501.080 70-110 mg/dL High BEDSIDE GLU 121 Result Comment: MANAGEMENT OF PATIENT CARE PER NURSING PROTOCOL Performed By: #### L501.080 #### [facility] Point of Care [address] [place] [address] SWALLOWING FUNCTION Observed: 04/20/2018 Status: F Source: [place] W/VIDEO 12:00 AM [facility] REPOSITORY [facility] Imaging Services [address] [place] [address] Swallowing Function w/Video MR#: [id number] Acct: [id number] Name: NAVEEN AKINS Rep #: [id number] : 1940 M 78 From: Bertrand Steel MD PCP: Jack Olmedo MD Status: ADM IN Study: Swallowing Function w/Video Date of Exam: 04/20/18 Exam# [id number] Ordering Dr: Jh Gustafson MD STUDY: SWALLOWING [...] Bertrand Steel MD at 13:52 EST Tel [phone], Service support , CC: Jack Olmedo MD; Jh Gustafson MD Clinical Trials Nurse: Signed BEDSIDE GLUCOSE Collected: 04/19/2018 Status: F Source: [place] 6:39 AM [facility] REPOSITORY TYPE CODE TESTS RESULT OUT OF RANGE REFERENCE UNITS LAB L501.080 70-110 mg/dL Normal BEDSIDE GLU 99 Result Comment: MANAGEMENT OF PATIENT CARE PER NURSING PROTOCOL Performed By: #### L501.080 #### [facility] Point of Care [facility] [place] [address] CBC W/DIFF, AUTOMATED Collected: 04/19/2018 Status: F Source: [place] 5:25 AM [facility] REPOSITORY TYPE CODE TESTS RESULT OUT OF [...] Lymph 1.51 Performed By: #### L100.0100 #### [facility] [address] [place], [address] BASIC METABOLIC Collected: 04/19/2018 Status: F Source: [place] PROFILE (BMP) 5:25 AM [facility] REPOSITORY TYPE CODE TESTS RESULT OUT OF [...] GAP 10 Performed By: #### L500.2500 #### [facility] [address] [facility] [place], [place], [address] URINALYSIS, COMPLETE Collected: 04/18/2018 Status: F Source: [place] 5:30 PM [facility] REPOSITORY Order Comment: Order Date: 04/18/18 How [...] URINE SEEN Performed By: #### L400.0001 #### [facility] [address] [facility] [place], [address] BEDSIDE GLUCOSE Collected: 04/18/2018 Status: F Source: [place] 3:47 PM [facility] REPOSITORY TYPE CODE TESTS RESULT OUT OF REFERENCE UNITS RANGE LAB L501.080 70-110 mg/dL High BEDSIDE GLU 112 Result Comment: MANAGEMENT OF PATIENT CARE PER NURSING PROTOCOL Performed By: #### L501.080 #### [facility] Point of Care [address] [place], [place] [address] CBC W/DIFF, AUTOMATED Collected: 04/18/2018 Status: F Source: [place] 12:30 PM [facility] REPOSITORY TYPE CODE TESTS RESULT OUT OF [...] 1.59 Performed By: #### L100.0100, L500.4050 #### [facility] [address] [place], [address] COMPREHENSIVE METABOLIC Collected: 04/18/2018 Status: F Source: [place] [facility] 12:30 PM [facility] REPOSITORY TYPE CODE TESTS RESULT OUT OF [...] 8 Performed By: #### L100.0100, L500.4050 #### [facility] [address] [place], [address] CHEST 1 VIEW Observed: 04/18/2018 Status: F Source: [place] (PORTABLE) 12:07 PM [facility], [facility]1983 HOSPITAL REPOSITORY [facility] Imaging Services [address] [place] [address] Chest 1 View (Portable) MR#: [id number] Acct: [id number] Name: NAVEEN AKINS Rep #: [id number] : 1940 M 78 From: Bertrand Steel MD PCP: Jack Olmedo MD Status: ADM IN Study: Chest 1 View (Portable) Date of Exam: 04/18/18 Exam# [id number] Ordering Dr: Jh Gustafson MD STUDY: X-RAY [...] Bertrand Steel MD at 15:25 EST Tel [phone], Service support , CC: Jack Olmedo MD; Jh Gustafson MD Clinical Trials Nurse: Signed ABDOMEN SINGLE VIEW Observed: 04/18/2018 Status: F Source: [place] (PORTABLE) 12:07 PM [facility] HOSPITAL REPOSITORY [facility] Imaging Services [address] [place] [address] Abdomen Single View (Portable) MR#: [id number] Acct: [id number] Name: NAVEEN AKINS Rep #: [id number] : 1940 78 From: Bertrand Steel MD PCP: Jack Olmedo MD Status: ADM IN Study: Abdomen Single View (Portable) Date of Exam: 04/18/18 Exam# [id number] Ordering Dr: Jh Gustafson MD STUDY: X-RAY [...] Bertrand Steel MD at 15:27 EST Tel [phone], Service support , CC: Jack Olmedo MD; Jh Gustafson MD Clinical Trials Nurse: Signed COMPREHENSIVE METABOLIC Collected: 04/15/2018 Status: F Source: [place] PROFIL 2:11 PM [facility] REPOSITORY TYPE CODE TESTS RESULT OUT OF [...] GAP 6 Performed By: #### L500.4050 #### [facility] [address] [place], [place], [id number] CBC W/DIFF, AUTOMATED Collected: 04/15/2018 Status: F Source: [place] 2:11 PM [facility] REPOSITORY TYPE CODE TESTS RESULT OUT OF [...] Lymph 1.63 Performed By: #### L100.0100 #### [facility] [address] [place], [place], [address] PARTIAL THROMBOPLAST Collected: 04/15/2018 Status: F Source: [place] TIME 2:11 PM [facility] REPOSITORY TYPE CODE TESTS RESULT OUT OF REFERENCE UNITS RANGE LAB L300.4310 24.1-36.2 Seconds High PTT 41.1 Performed By: #### L300.4310 #### [facility] [address] [facility] [place], [address] URINALYSIS, COMPLETE Collected: 04/12/2018 Status: F Source: [place] 4:45 AM [facility] REPOSITORY Order Comment: Order Date: 04/12/18 Comments: [...] SEEN Performed By: #### L100.0100, L400.0001 #### [facility] [address] [place], [address] CBC W/DIFF, AUTOMATED Collected: 04/11/2018 Status: F Source: [place] 10:18 PM [facility] REPOSITORY TYPE CODE TESTS RESULT OUT OF [...] 1.51 Performed By: #### L100.0100, L400.0001 #### [facility] [address] [place], [place], [address] BASIC METABOLIC Collected: 04/11/2018 Status: F Source: [place] PROFILE (BMP) 10:18 PM [facility] REPOSITORY TYPE CODE TESTS RESULT OUT OF [...] GAP 7 Performed By: #### L500.2500 #### [facility] [address] [facility] [place], [address] CHEST PA AND LATERAL Observed: 04/11/2018 Status: F Source: [place] 9:54 PM [facility] REPOSITORY [facility] Imaging Services [address] [place] [address] Chest PA and Lateral MR#: [id number] Acct: [id number] Name: NAVEEN AKINS Rep #: [id number] : 1940 M 78 From: Win Ramos MD PCP: Jack Olmedo MD Status: ADM IN Study: Chest PA and Lateral Date of Exam: 04/11/18 Exam# [id number] Ordering Dr: Jh Gustafson MD STUDY: X-RAY [...] CC: Jack Olmedo MD; Jh Gustafson MD Clinical Trials Nurse: Signed ABDOMEN SINGLE VIEW Observed: 04/11/2018 Status: F Source: [place] 9:54 PM [facility] REPOSITORY [facility] Imaging Services [address] [place] [address] Abdomen Single View MR#: [id number] Acct: [id number] Name: NAVEEN AKINS Rep #: [id number] : 1940 M 78 From: Win Ramos MD PCP: Jack Olmedo MD Status: ADM IN Study: Abdomen Single View Date of Exam: 04/11/18 Exam# [id number] Ordering Dr: Jh Gustafson MD STUDY: X-RAY [...] CC: Jack Olmedo MD; Jh Gustafson MD Clinical Trials Nurse: Signed WRIST 2 VIEWS Observed: 04/11/2018 Status: F Source: [place] 11:25 AM [facility] REPOSITORY [facility] Imaging Services [address] [place] [address] Wrist 2 Views MR#: [id number] Acct: [id number] Name: NAVEEN AKINS Rep #: [id number] : 1940 M 78 From: Win Ramos MD PCP: Jack Olmedo MD Status: ADM IN Study: Wrist 2 Views Date of Exam: 04/11/18 Exam# [id number] Ordering Dr: Jh Gustafson MD STUDY: X-RAY [...] CC: Jack Olmedo MD; Jh Gustafson MD Clinical Trials Nurse: Signed URINALYSIS, COMPLETE Collected: 04/09/2018 Status: F Source: [place] 4:40 PM [facility] REPOSITORY Order Comment: How was Urine Obtained? [...] Normal CRYSTAL Performed By: #### L400.0001 #### [facility] [address] [place], [place], [address] BASIC METABOLIC Collected: 04/09/2018 Status: F Source: [place] PROFILE (BMP) 6:20 AM [facility] REPOSITORY TYPE CODE TESTS RESULT OUT OF [...] GAP 6 Performed By: #### L500.2500 #### [facility] [address] [facility] [place], [address] CHEST 1 VIEW Observed: 04/09/2018 Status: F Source: [place] (PORTABLE) 12:15 AM [facility] REPOSITORY [facility] Imaging Services [address] [place] [address] Chest 1 View (Portable) MR#: [id number] Acct: [id number] Name: NAVEEN AKINS Rep #: [id number] : 1940 M 78 From: Kristie Rubio MD PCP: Honorio LOREDO,Jack Status: ADM IN Study: Chest 1 View (Portable) Date of Exam: 04/09/18 Exam# [id number] Ordering Dr: Jh Gustafson MD HISTORY: Cough. [...] CC: Jack Olmedo MD; Jh Gustafson MD Clinical Trials Nurse: Signed CBC W/DIFF, AUTOMATED Collected: 04/08/2018 Status: F Source: [place] 4:57 PM [facility] REPOSITORY TYPE CODE TESTS RESULT OUT OF [...] Lymph 1.54 Performed By: #### L100.0100 #### [facility] [address] [place], [address] BASIC METABOLIC Collected: 04/08/2018 Status: F Source: [place] PROFILE ([facility]) 4:57 PM [facility] [facility] [place] REPOSITORY TYPE CODE TESTS RESULT OUT OF [...] GAP 7 Performed By: #### L500.2500 #### [facility] [address] [place], [address] CBC W/DIFF, AUTOMATED Collected: 04/05/2018 Status: F Source: [place] 5:35 AM [facility] [place] REPOSITORY TYPE CODE TESTS RESULT OUT OF [...] Lymph 1.42 Performed By: #### L100.0100 #### [facility] [address] [place], [place], [address] BASIC METABOLIC Collected: 04/05/2018 Status: F Source: [place] PROFILE (BMP) 5:35 AM [facility] [place] REPOSITORY TYPE CODE TESTS RESULT OUT OF [...] GAP 9 Performed By: #### L500.2500 #### [facility] [address] [place], [address] HISTORY AND PHYSICAL Observed: 04/04/2018 Status: F Source: [place] EXAM 8:04 PM [facility] [place] REPOSITORY [facility] Medical Records Department [address] [place] [address] History and Physical 04/04/181939 MR#: [id number] Acct: [id number] Name: NAVEEN AKINS Rep #: [id number] : 1940 78 From: Jh Gustafson MD PCP: Honorio LOREDO,Jack Status: ADM IN Location: [place] [id number] ADDENDUM by Jh Gustafson MD on 04/04/18 [...] encephalopathy, trach, peg, TCU resident transferred to [facility] Emergency Department 04/01/2018 with change in mental [...] Psychiatric History: No pertinent psych hx Lives: Penitentiary Smoking Status: Never smoker Tobacco Use: Non-smoker [...] DISCHARGE SUMMARY Observed: 04/04/2018 Status: F Source: [place] 5:16 PM [facility] [place] REPOSITORY [facility] Medical Records Department [address] [place] [address] Discharge Summary 04/04/18 1129 MR#: [id number] Acct: [id number] Name: NAVEEN AKINS Rep #: [id number] : 1940 78 From: Marisol Montiel MD PCP: Jack Olmedo MD Status: DIS IN Y Location: [place] [address] Discharge Date and Diagnosis Date of Admission: [...] and serial CODE BLUE, which are pending [facility]. Patient subsequently has been discharged to LTAC [...] for possible weaning of tracheostomy in the senior care facility 4. Hypokalemia, replaced 5. Acute on [...] Mathews MD When: in 4 weeks Disposition: Group Home facility Minutes spent on discharge:: 50 Patient Condition:: Stable Medical Necessity - Tobacco Use Smoking Status: Never smoker Tobacco Use: Non-smoker Meaningful Use Info Meaningful Use Diagnoses (Choose all that apply): None applicable Code Visit Inpatient E AND M: 66989 Disch Hosp 04/04/18 1716 <Electronically signed by Marisol Montiel MD> Date Marisol Montiel MD Cosigner Signature (if applicable): Date CC: Marisol Montiel MD; Jack Olmedo MD Signed 12 LEAD ELECTROCARDIOGRAM Observed: 04/04/2018 Status: F Source: [place] 11:33 AM [facility] [place] REPOSITORY [facility] Cardiovascular Services [address] [place] [address] 12 Lead EKG 03/29/18 0935 MR#: [id number] Acct: [id number] Name: NAVEEN AKINS Rep #: [id number] : 1940 78 From: Moy Gee MD Attending Dr: Sj LOREDO,Loku Status: DIS IN Ordering Dr: Darrell Gomez MD Date: 03/29/18 Location: [facility] Sex: M C Admitted: 03/28/18 Test [...] in Anterolateral leads Confirmed by MOY GEE ([id number]), senior technical editor KATHY SILVA ([id number]) on 04/04/2018 11:33:34 AM Referred By: Jh Gustafson Confirmed By:MOY GEE 04/04/18 1133 Date Moy Gee MD CC: Jack Olmedo MD; Darrell Gomez MD; Jh Gustafsno MD Signed TRANSFER TO [facility] Observed: 04/04/2018 Status: F Source: [facility] 11:28 AM [facility] REPOSITORY [facility] Medical Records Department [address] [place] [address] Transfer to [facility] MR#: [id number] Acct: [id number] Name: NAVEEN AKINS Rep #: [id number] : 1940 78 From: Marisol Montiel MD PCP: Jack Olmedo MD Status: ADM IN NAVEEN AKINS (Patient) (Health Ins. Claim No.) (Day of Discharge to Facility) Certification of patient admission REQUIRED AT TIME OF ADMISSION. I CERTIFY THAT [facility] ARE REQUIRED TO BE GIVEN ON AN IN-PATIENT BASIS BECAUSE OF THE ABOVE NAMED PATIENT'S NEED FOR [facility] CARE ON A CONTINUING BASIS FOR THE CONDITION(S) FOR WHICH HE/SHE WAS RECEIVING IN-PATIENT HOSPITAL SERVICES PRIOR TO HIS/HER TRANSFER TO THE [facility]. 04/04/18 1128 <Electronically signed by Marisol Montiel MD> Date Marisol Montiel MD - Diet 04/01/18 05:50 Diet: Nothing Per Oral Tube Feed: TwoCal tube feeds, see below in Building Custodian notes - Routine Orders/Code Status O2 Liters [...] Montiel MD CC: Kelton Mcclendon MD; Nelson Mathews MD; Jack Olmedo MD Signed 12 LEAD ELECTROCARDIOGRAM Observed: 04/04/2018 Status: F Source: [place] 8:39 AM [facility] REPOSITORY [facility] Cardiovascular Services [address] [place] [address] 12 Lead EKG 04/01/18 0303 MR#: [id number] Acct: [id number] Name: NAVEEN AKINS Rep #: [id number] : 1940 78 From: Moy Gee MD Attending Dr: Marisol Montiel MD Status: ADM IN Ordering Dr: Tim Fernando MD Date: 04/01/18 Location: [facility] Sex: M C Admitted: 04/01/18 Test Reason [...] normal ECG Confirmed by MOY GEE ([id number]), senior technical editor KATHY SILVA ([id number]) on 04/04/2018 8:39:18 AM Referred By: JUAN JOSE Confirmed By:MOY GEE 04/04/18 0839 Date Moy Gee MD CC: Marisol Montiel MD; Jack Olmedo MD; Tim Fernando MD Signed CONSULTATION Observed: 04/04/2018 Status: F Source: [place] 7:22 AM [facility] [place] REPOSITORY [facility] Medical Records Department [address] [place] [address] Consultation 04/03/18 1343 MR#: [id number] Acct: [id number] Name: NAVEEN AKINS Rep #: [id number] : 1940 78 From: Nelson Mathews MD PCP: Jack Olmedo MD Status: ADM IN Y Location: [place] [id number] Problem List (1) Abdominal aortic aneurysm, ruptured Status: Resolved (2) Cardiac arrest Status: Resolved (3) Anoxic encephalopathy Status: Chronic (4) Dysphagia Status: Chronic Qualifiers: Dysphagia type: oropharyngeal phase Qualified Code(s): R13.12 - Dysphagia, oropharyngeal phase (5) HCAP (healthcare-associated pneumonia) Status: Acute (6) Coronary artery disease Status: Chronic Qualifiers: Coronary Disease-Associated Artery/Lesion type: unspecified vessel or lesion type [place] vs. transplanted heart: unspecified whether [place] or transplanted heart Associated angina: angina presence unspecified Qualified Code(s): I25.10 - Atherosclerotic heart disease of [place] coronary artery without angina pectoris (7) Hypertension Status: Chronic Qualifiers: Hypertension type: essential hypertension Qualified Code(s): I10 - Essential (primary) hypertension Reason for Consult Date of Consultation: 04/03/18 Reason for Consultation: Chronic respiratory failure History of Present Illness: The patient is a 78 year old M, with past medical history listed below, who presented to [facility] on 04/01/2018 from the TCU secondary to change in mental status. An FORENSIC CHEMIST had been called on TCU secondary to [...] weaning recommendations. Patient reportedly was transferred to [facility] secondary to an emergency AAA repair. Patient had a very complicated hospital course with serial CODE BLUE events that resulted in tracheostomy, PEG and LTAC stay. Patient was recently transferred to the TCU for rehab. Patient's family reports a possible history of obstructive sleep apnea prior to the acute hospitalization. Otherwise, patient did not have any respiratory difficulties. 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 Patient did not have any inhalers at [...] Psychiatric History: No pertinent psych hx Lives: Penitentiary Smoking Status: Never smoker Tobacco Use: Non-smoker [...] prognosis Code Visit Inpatient E AND M: 56881 Init Hosp L2 04/04/18 0722 <Electronically signed by Nelson Mathews MD> Date Nelson Mathews MD Cosigner Signature (if applicable): Date CC: Kelton Mcclendon MD; Nelson Mathews MD; Jack Olmedo MD Signed RENAL PROFILE Collected: 04/04/2018 Status: F Source: [place] 6:07 AM [facility] REPOSITORY TYPE CODE TESTS RESULT OUT OF [...] CO2 25.0 Performed By: #### L500.3600 #### [facility] [address] [place] [address]. [place], [address] Observed: 04/03/2018 Status: F Source: [place] CULTURE, SPUTUM 3:35 PM [facility] REPOSITORY Comments: tracheal aspirate obtained at 1535 [...] <=20 S (NF) indicates non-formulary drug at [facility]. Approval by Infectious Disease Specialist required before non-formulary drugs may be ordered and/or dispensed. Performed By: #### M100.0800 #### [facility] [address] [place], [address] Observed: 04/03/2018 Status: F Source: [place] STOOL OCCULT BLOOD 3:20 PM [facility] IFOB REPOSITORY STOB iFOB Occult Blood Negative Performed By: #### M100.7900 #### [facility] [address] [place], [place], [address] Observed: 04/03/2018 Status: F Source: [place] LEGIONELLA ANTIGEN 2:54 PM [facility] [place] URINE REPOSITORY Legionella, UR Legionella Antigen result interpretation: Negative Presumptive negative for Legionella pneumophila serogroup 1 antigen in urine, suggesting no recent or current infection. Legionella Ag, Urine Negative (See interpretation below) Performed By: #### M300.4500 #### [facility] [address] [place], [place], [address] STREP Observed: 04/03/2018 Status: F Source: [place] PNEUMONIAE ANTIG(UR,CSF) 2:54 PM [facility] REPOSITORY S pneumo Ag URINE INTERPRETATION Negative Urine Presumptive negative for pneumococcal pneumonia, suggesting no current or recent pneumococcal infection. Infection due to S pneumoniae cannot be ruled out since the antigen present in the sample may be below the detection limit of the test. Strep pneumo Test Negative URINE (See interpretation below) Performed By: #### M300.4600 #### [facility] [address] [place], [place], [address] CBC W/DIFF, AUTOMATED Collected: 04/03/2018 Status: F Source: [place] 4:30 AM [facility] REPOSITORY TYPE CODE TESTS RESULT OUT OF [...] Lymph 1.55 Performed By: #### L100.0100 #### [facility] [address] [place], [place], [address] VANCOMYCIN, TROUGH Collected: 04/03/2018 Status: F Source: [place] LEVEL 4:30 AM [facility] REPOSITORY Order Comment: Time Medication is to [...] (Ventilator/Healtcare Associated) -Sepsis PLEASE CONTACT PHARMACY SERVICES (#[id number]) FOR INTERPRETATION OF RESULTS. Performed By: #### L501.8820 #### [facility] [address] [place], [place], [address] RENAL PROFILE Collected: 04/03/2018 Status: F Source: [place] 4:30 AM [facility] REPOSITORY TYPE CODE TESTS RESULT OUT OF [...] CO2 23.0 Performed By: #### L500.3600 #### [facility] [address] [place], [place], [address] CHEST 1 VIEW Observed: 04/03/2018 Status: F Source: [place] (PORTABLE) 12:01 AM [facility] REPOSITORY [facility] Imaging Services [address] [place] [address] Chest 1 View (Portable) MR#: [id number] Acct: [id number] Name: NAVEEN AKINS Rep #: [id number] : 1940 M 78 From: Tim Drew PCP: Jack Olmedo MD Status: ADM IN Study: Chest 1 View (Portable) Date of Exam: 04/03/18 Exam# [id number] Ordering Dr: Marisol Montiel MD STUDY: X-RAY [...] CC: Marisol Montiel MD; Jack Olmedo MD Clinical Trials Nurse: Signed URINALYSIS, COMPLETE Collected: 04/02/2018 Status: F Source: [place] 10:20 PM [facility] REPOSITORY Order Comment: Order Date: 04/01/18 How [...] URINE SEEN Performed By: #### L400.0001 #### [facility] [address] [place], [address] CONSULTATION Observed: 04/02/2018 Status: F Source: [place] 11:06 AM [facility] REPOSITORY [facility] Medical Records Department [address] [place] [address] Consultation 04/02/18 1052 MR#: [id number] Acct: [id number] Name: NAVEEN AKINS Kaylah Rep #: [id number] : 1940 78 From: Abdullahi Styles MD PCP: Jack Olmedo MD Status: ADM IN Location: [place] [address] Reason for Consult Date of Consultation: 04/02/18 Reason for Consultation: spells History of Present Illness: The patient is a 78 year old M with recurrent spells always associated with tube feeds. 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 Discussion with family and decision [...] Psychiatric History: No pertinent psych hx Lives: Penitentiary Smoking Status: Never smoker Tobacco Use: Non-smoker [...] should return and will resolve feeding issues 04/02/181105 <Electronically signed by Abdullahi Styles MD> Date Abdullahi Styles MD Cosigner Signature (if applicable): Date CC: Kelton Mcclendon MD; Jack Olmedo MD Signed ELECTROENCEPHALOGRAM Observed: 04/02/2018 Status: F Source: [place] 11:06 AM [facility] REPOSITORY [facility] Pulmonary Services/Neurology [address] [place] [address] MR#: [id number] Acct: [id number] Name: NAVEEN AKINS Rep #: [id number] : 1940 78 From: Abdullahi Styles MD Referring Dr: Marisol Montiel MD Status: ADM IN Ordering Dr: Date: Location: [place] [id number] Sex: M C - Electroencephalogram Date of [...] Dictated: 04/02/18 1037 Date Transcribed: 04/02/18 1037 Clinical Trials Nurse: NF Signed CBC W/DIFF, AUTOMATED Collected: 04/02/2018 Status: F Source: [place] 5:45 AM [facility] REPOSITORY TYPE CODE TESTS RESULT OUT OF [...] Lymph 1.49 Performed By: #### L100.0100 #### [facility] [address] [place], [address] BASIC METABOLIC Collected: 04/02/2018 Status: F Source: [place] PROFILE (BMP) 5:45 AM [facility] REPOSITORY TYPE CODE TESTS RESULT OUT OF [...] GAP 10 Performed By: #### L500.2500 #### [facility] [address] [place], [address] PHOSPHORUS Collected: 04/02/2018 Status: F Source: [place] 5:45 AM [facility] REPOSITORY Order Comment: Comments: as add on test TYPE CODE TESTS RESULT OUT OF RANGE REFERENCE UNITS LAB L501.2300 2.5-4.9 mg/dL Normal PHOS 3.6 Performed By: #### L501.2300, L501.5200 #### [facility] [address] [place], [address] MAGNESIUM Collected: 04/02/2018 Status: F Source: [place] 5:45 AM [facility] REPOSITORY Order Comment: Comments: as add on test TYPE CODE TESTS RESULT OUT OF RANGE REFERENCE UNITS LAB L501.5200 1.6-2.6 mg/dL Normal MG 1.6 Performed By: #### L501.2300, L501.5200 #### [facility] [address] [facility] [place], [address] Observed: 04/01/2018 Status: F Source: [place] CULTURE, SPUTUM 10:55 PM [facility] REPOSITORY Has pt arrived? Y Gram Stain [...] <=20 S (NF) indicates non-formulary drug at [facility]. Approval by Infectious Disease Specialist required before non-formulary drugs may be ordered and/or dispensed. Performed By: #### M100.0800 #### [facility] [address] [place], [address] Observed: 04/01/2018 Status: F Source: [place] CULTURE, SPUTUM 12:00 PM [facility] [place] REPOSITORY Has pt arrived? Y Gram Stain [...] <=20 S (NF) indicates non-formulary drug at [facility]. Approval by Infectious Disease Specialist required before non-formulary drugs may be ordered and/or dispensed. Performed By: #### M100.0800 #### [facility] [address] [facility] [place], [address] DISCHARGE SUMMARY Observed: 04/01/2018 Status: F Source: [place] 8:54 AM [facility] REPOSITORY [facility] Medical Records Department [address] [place] [address] Discharge Summary 04/01/18 0853 MR#: [id number] Acct: [id number] Name: NAVEEN AKINS Kaylah Rep #: [id number] : 1940 78 From: Jh Gustafson MD PCP: Honorio LOREDO,Jack Status: DIS IN Y Location: [place] [address] Discharge Date and Diagnosis - Problem List [...] to TCU for rehabilitation, strengthening, prior to custodial care placement. Resident's prognosis is poor. 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 Tests Past 24 Hrs POC Glucose [...] DISCHARGE INSTRUCTION Observed: 04/01/2018 Status: F Source: [place] 8:52 AM [facility] REPOSITORY [facility] Medical Records Department [address] [place] [address] [place] [address] Instructions for Home/Discharge Instructions 04/01/18 0850 MR#: [id number] Acct: [id number] Name: NAVEEN AKINS Rep #: [id number] : 1940 78 From: Jh Gustafson MD [...] AND PHYSICAL Observed: 04/01/2018 Status: F Source: [place] EXAM 6:02 AM [facility] REPOSITORY [facility] Medical Records Department [address] [place] [address] History and Physical 04/01/18 0420 MR#: [id number] Acct: [id number] Name: NAVEEN AKINS Rep #: [id number] : 1940 78 From: Ny Lewis PCP: Jack Olmedo MD Status: ADM IN Location: [place] [address] Problem List (1) HCAP (healthcare-associated pneumonia) Status: [...] Artery/Lesion type: unspecified vessel or lesion type [place] vs. transplanted heart: unspecified whether [place] or transplanted heart Associated angina: angina presence unspecified Qualified Code(s): I25.10 - Atherosclerotic heart disease of [place] coronary artery without angina pectoris (11) Hypertension [...] ruptured abdominal aortic aneurysm prompting transition to [facility] with emergency AAA repair w/ serial CODE BLUE (x5) with serial unresponsive episodes, required trach, peg who was transitioned to the TCU for further therapies once cleared from LTAC who now presents to the [facility] ED on 04/01/18 following recurrent unresponsive episode where he is noted to stare off, less interactive, less oriented 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 Discussion with family and decision [...] Psychiatric History: No pertinent psych hx Lives: Penitentiary Smoking Status: Never smoker Tobacco Use: Non-smoker [...] (Acute) Subjective: Seated upright in bed, recent FORENSIC CHEMIST, currently awake, not answering questions, family notes [...] ruptured abdominal aortic aneurysm prompting transition to [facility] with emergency AAA repair w/ serial CODE BLUE (x5) with serial unresponsive episodes, required trach, peg who was transitioned to the TCU for further therapies once cleared from LTAC who now presents to the [facility] ED on 04/01/18 following recurrent unresponsive episode where he is noted to stare off, less interactive, less oriented 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 Discussion with family and decision [...] as this TF is not available at [facility], they will purchase and bring. (3) Recent AAA, s/p repair: 01/11/2018 CT scan of abdomen/pelvis showed ruptured abdominal aortic aneurysm following which patient was intubated, transfused 4 units trauma blood, lifeflighted to [facility] and underwent 01/12/18 emergent AAA repair. (4) Anoxic Brain Injury, s/p serial CODE BLUE x 5: s/p trach, PEG secondary to severity of presentation, oropharyngeal dysphagia w/ continued TFs w/ nutrition consultation. Patient was as noted #2, having serial episodes at [facility] and LTAC w/ similar unresponsive events, awaiting EEG results as performed day prior, seizure precautions. Neurology consulted. (5) CAD: Continue regimen asa, BB, not on statin currently. (6) Normocytic Anemia, Fe Deficiency, Worsened, Recent DIC during [facility] prolonged admission: Admission Hgb 6.8, decreased [...] minutes. Code Visit Inpatient E AND M: 27574 Init Hosp L3 Procedures: 55483 Advncd Care Plan 30 Min 04/01/18 0602 <Electronically signed by Ny Lewis > Date Ny Lewis Cosigner Signature: Date (if applicable) CC: Ny Lewis; Jack Olmedo MD Signed EMERGENCY DEPARTMENT Observed: 04/01/2018 Status: F Source: [place] SUMMARY 4:47 AM [facility] REPOSITORY [facility] Medical Records Department [address] [place] [address] Emergency Department Summary 04/01/18 0237 MR#: [id number] Acct: [id number] Name: MABLENAVEEN Rep #: [id number] : 1940 78 From: Tim Fernando MD [...] cm AAA. He was life flighted to [facility][1]. He underwent emergency aortic grafting. His postoperative course was complicated by multiple cardiac arrests. Patient now has diagnosis of hypoxic encephalopathy. He has a trach and a PEG. He was hospitalized at an LTAC, but then had another a few bouts of cardiac arrest. He was transferred back to [facility]. It was thought that it may been [...] Aspiration pneumonia This note was generated with [employer] dictation software. It may contain incorrect words, [...] your Primary Care Provider. Call [facility] ([phone]) or report to the closest Emergency Room. Call 911 if necessary. 04/01/18 0447 <Electronically signed by Tim Fernando MD> Date Tim Fernando MD Cosigner Signature (If Indicated): Date CC: Jack Olmedo MD TYPE AND SCREEN Collected: 04/01/2018 Status: F Source: [place]IEJO 4:04 [facility] REPOSITORY Order Comment: CMV NEG? N Number [...] NEGATIVE Screen Performed By: #### B101.7450 #### [facility] [address] [place], [address] RC Collected: 04/01/2018 Status: F Source: [place] 4:04 AM [facility] REPOSITORY TYPE CODE TESTS RESULT OUT OF REFERENCE UNITS RANGE LAB U100.0000 [id number] TRANSFUSED PRODUCT: T AND S with Crossmatch, Red Cells COUNT: 1 Performed By: #### U100.0000 #### [facility] - refer to report for specific site RC Collected: 04/01/2018 Status: F Source: [place] 4:04 AM [facility] REPOSITORY TYPE CODE TESTS RESULT OUT OF REFERENCE UNITS RANGE LAB U100.0000 [id number] TRANSFUSED PRODUCT: T AND S with Crossmatch, Red Cells COUNT: 1 Performed By: #### U100.0000 #### [facility] [facility] - refer to report for specific site CBC W/DIFF, AUTOMATED Collected: 04/01/2018 Status: F Source: [place] 2:58 AM [facility] REPOSITORY TYPE CODE TESTS RESULT OUT OF [...] Lymph 1.44 Performed By: #### L100.0100 #### [facility] [address] [place], [place], [address] COMPREHENSIVE METABOLIC Collected: 04/01/2018 Status: F Source: [place] PROFIL 2:58 AM [facility] REPOSITORY TYPE CODE TESTS RESULT OUT OF [...] GAP 8 Performed By: #### L500.4050 #### [facility] [address] [place], [address] PHOSPHORUS Collected: 04/01/2018 Status: F Source: [place] 2:58 AM [facility] REPOSITORY TYPE CODE TESTS RESULT OUT OF RANGE REFERENCE UNITS LAB L501.2300 2.5-4.9 mg/dL Normal PHOS 3.1 Performed By: #### L501.2300, L501.5200 #### [facility] [address] [place], [address] MAGNESIUM Collected: 04/01/2018 Status: F Source: [place] 2:58 AM [facility] REPOSITORY TYPE CODE TESTS RESULT OUT OF RANGE REFERENCE UNITS LAB L501.5200 1.6-2.6 mg/dL Normal MG 1.7 Performed By: #### L501.2300, L501.5200 #### [facility] [address] [place], [address] CHEST 1 VIEW Observed: 04/01/2018 Status: F Source: [place] (PORTABLE) 2:38 AM [facility] REPOSITORY [facility] Imaging Services [address] [place] [address] Chest 1 View (Portable) MR#: [id number] Acct: [id number] Name: NAVEEN AKINS Rep #: [id number] : 1940 M 78 From: Santa Travis MD PCP: Honorio LOREDO,Jack Status: REG ER Study: Chest 1 View (Portable) Date of Exam: 04/01/18 Exam# [id number] Ordering Dr: Tim Fernando MD STUDY: X-RAY [...] CC: Jack Olmedo MD; Tim Fernando MD Clinical Trials Nurse: Signed BRAIN/HEAD WITHOUT Observed: 04/01/2018 Status: F Source: [place] CONTRAST 2:38 AM [facility] REPOSITORY [facility] Imaging Services [address] [place] [address] Brain/Head without Contrast MR#: [id number] Acct: [id number] Name: NAVEEN AKINS Rep #: [id number] : 1940 78 From: Santa Travis MD PCP: Jack Olmedo MD Status: REG ER Study: Brain/Head without Contrast Date of Exam: 04/01/18 Exam# [id number] Ordering Dr: Tim Fernando MD STUDY: CT [...] CC: Jack Olmedo MD; Tim Fernando MD Clinical Trials Nurse: Signed BEDSIDE GLUCOSE Collected: 04/01/2018 Status: F Source: [place] 2:03 AM [facility] REPOSITORY TYPE CODE TESTS RESULT OUT OF REFERENCE UNITS RANGE LAB L501.080 70-110 mg/dL High BEDSIDE GLU 121 Result Comment: MANAGEMENT OF PATIENT CARE PER NURSING PROTOCOL Performed By: #### L501.080 #### [facility] Point of Care [address] [place], [place] [address] Observed: 04/01/2018 Status: F Source: [place] RESPIRATORY PANEL 12:00 AM [facility] MOLECULAR REPOSITORY RP PANEL ADENOVIRUS Not Detected [...] acid amplification Performed By: #### M100.638 #### [facility] [address] [place], [place], [address] URINALYSIS, COMPLETE Collected: 03/31/2018 Status: F Source: [place] 6:50 PM [facility] REPOSITORY Order Comment: How was Urine Obtained? [...] URINE SEEN Performed By: #### L400.0001 #### [facility] [address] [place], [address] Observed: 03/31/2018 Status: F Source: [place] CULTURE, URINE 6:50 PM [facility] REPOSITORY Urine Culture RESULTS CALLED TO /NURSE LINE 04/03/18 0992 Agata Venegas. Copy of report sent to Infection Control Printer MS#[id number] 04/03/18 0937 DCANNON. ORGANISM 1: Enterobacter cloacae complex [place] Count 11,000-25,000 ORGANISM 2: Vancomycin Resist. E. faecilis [place] Count 1000-10,000 Enterobacter cloacae complex: REACTION Amikacin [...] <=20 S (NF) indicates non-formulary drug at [facility]. Approval by Infectious Disease Specialist required [...] <=20 S (NF) indicates non-formulary drug at [facility]. Approval by Infectious Disease Specialist required [...] >=32 R (NF) indicates non-formulary drug at [facility]. Approval by Infectious Disease Specialist required before non-formulary drugs may be ordered and/or dispensed. * CLSI guidelines does not recommend testing of cephalosporins. This interpretation is deduced from Beta-lactam/penicillin results. Performed By: #### M100.0650 #### [facility] [address] [place], [address] CBC W/DIFF, AUTOMATED Collected: 03/31/2018 Status: F Source: [place] 4:35 PM [facility] REPOSITORY TYPE CODE TESTS RESULT OUT OF [...] Lymph 1.76 Performed By: #### L100.0100 #### [facility] [address] [place], [place], [address] BASIC METABOLIC Collected: 03/31/2018 Status: F Source: [place] PROFILE (BMP) 4:35 PM [facility] REPOSITORY TYPE CODE TESTS RESULT OUT OF [...] GAP 7 Performed By: #### L500.2500 #### [facility] [address] [facility] [place], [address] CHEST 1 VIEW Observed: 03/31/2018 Status: F Source: [place] (PORTABLE) 4:00 PM [facility] REPOSITORY [facility] Imaging Services [address] [place] [address] Chest 1 View (Portable) MR#: [id number] Acct: [id number] Name: NAVEEN AKINS Rep #: [id number] : 1940 M 78 From: Santa Travis MD PCP: Jack Olmedo MD Status: ADM IN Study: Chest 1 View (Portable) Date of Exam: 03/31/18 Exam# [id number] Ordering Dr: Jh Gustafson MD STUDY: X-RAY [...] CC: Jack Olmedo MD; Jh Gustafson MD Clinical Trials Nurse: Signed ABDOMEN SINGLE VIEW Observed: 03/31/2018 Status: F Source: [place] (PORTABLE) 4:00 PM [facility] REPOSITORY [facility] Imaging Services [address] [place] [address] Abdomen Single View (Portable) MR#: [id number] Acct: [id number] Name: NAVEEN AKINS Rep #: [id number] : 1940 M 78 From: Santa Travis MD PCP: Jack Olmedo MD Status: ADM IN Study: Abdomen Single View (Portable) Date of Exam: 03/31/18 Exam# [id number] Ordering Dr: Jh Gustafson MD STUDY: X-RAY [...] CC: Jack Olmedo MD; Jh Gustafson MD Clinical Trials Nurse: Signed BEDSIDE GLUCOSE Collected: 03/31/2018 Status: F Source: [place] 7:14 AM [facility] REPOSITORY TYPE CODE TESTS RESULT OUT OF RANGE REFERENCE UNITS LAB L501.080 70-110 mg/dL Normal BEDSIDE GLU 104 Result Comment: MANAGEMENT OF PATIENT CARE PER NURSING PROTOCOL Performed By: #### L501.080 #### [facility] Point of Care [address] [place], [place] [address] HH, HEMOGLOBIN AND Collected: 03/31/2018 Status: F Source: [place] HEMATOCRIT 6:54 AM [facility] REPOSITORY TYPE CODE TESTS RESULT OUT OF RANGE REFERENCE UNITS LAB L100.1300 13.0-16.5 g/dl Low HGB 7.3 LAB L100.1400 40-54 % Low HCT 22.5 Performed By: #### L100.0600 #### [facility] [address] [place], [place], [address] BEDSIDE GLUCOSE Collected: 03/30/2018 Status: F Source: [place] 9:39 AM [facility] REPOSITORY TYPE CODE TESTS RESULT OUT OF RANGE REFERENCE UNITS LAB L501.080 70-110 mg/dL Normal BEDSIDE GLU 109 Result Comment: MANAGEMENT OF PATIENT CARE PER NURSING PROTOCOL Performed By: #### L501.080 #### [facility] Point of Care [address] [place], [place] [address] BEDSIDE GLUCOSE Collected: 03/30/2018 Status: F Source: [place] 6:56 AM [facility] REPOSITORY TYPE CODE TESTS RESULT OUT OF RANGE REFERENCE UNITS LAB L501.080 70-110 mg/dL Normal BEDSIDE GLU 101 Result Comment: MANAGEMENT OF PATIENT CARE PER NURSING PROTOCOL Performed By: #### L501.080 #### [facility] Point of Care [address] [place], [place] [address] CBC W/DIFF, AUTOMATED Collected: 03/30/2018 Status: F Source: [place] 5:35 AM [facility] REPOSITORY TYPE CODE TESTS RESULT OUT OF [...] Lymph 1.04 Performed By: #### L100.0100 #### [facility] [place], [address] BASIC METABOLIC Collected: 03/30/2018 Status: F Source: [place] PROFILE (BMP) 5:35 AM [facility] REPOSITORY TYPE CODE TESTS RESULT OUT OF [...] GAP 10 Performed By: #### L500.2500 #### [facility] [address] [place], [address] BEDSIDE GLUCOSE Collected: 03/30/2018 Status: F Source: [place] 4:55 AM [facility] REPOSITORY TYPE CODE TESTS RESULT OUT OF REFERENCE UNITS RANGE LAB L501.080 70-110 mg/dL High BEDSIDE GLU 115 Result Comment: MANAGEMENT OF PATIENT CARE PER NURSING PROTOCOL Performed By: #### L501.080 #### [facility] Point of Care [address] [place] [address] BEDSIDE GLUCOSE Collected: 03/30/2018 Status: F Source: [place] 3:22 AM [facility] REPOSITORY TYPE CODE TESTS RESULT OUT OF REFERENCE UNITS RANGE LAB L501.080 70-110 mg/dL High BEDSIDE GLU 117 Result Comment: MANAGEMENT OF PATIENT CARE PER NURSING PROTOCOL Performed By: #### L501.080 #### [facility] Point of Care [address] [place] [address] BEDSIDE GLUCOSE Collected: 03/30/2018 Status: F Source: [place] 12:52 AM [facility] REPOSITORY TYPE CODE TESTS RESULT OUT OF REFERENCE UNITS RANGE LAB L501.080 70-110 mg/dL High BEDSIDE GLU 112 Result Comment: MANAGEMENT OF PATIENT CARE PER NURSING PROTOCOL Performed By: #### L501.080 #### [facility] Point of Care [address] [place] [address] TROPONIN-I Collected: 03/29/2018 Status: F Source: [place] 9:48 AM [facility] REPOSITORY TYPE CODE TESTS RESULT OUT OF RANGE REFERENCE UNITS LAB L501.4010 <0.045 ng/mL Normal < 0.015 TROPONIN-I Result Comment: TROPONIN-I EXPECTED VALUES <0.045 Negative 0.045 - 0.590 Consistent with Cardiac Damage > OR = 0.600 Critical Value Not every elevated troponin is indicative of PA. These values should be used with clinical judgement in examining the patient's clinical picture for diagnosis. To establish a diagnosis of PA versus myocardial injury, there must be a demonstrated rise and/or fall in the troponin values, in addition to ischemic symptoms, EKG changes, new regional wall motion abnormality, and/or angiographical evidence. PLEASE NOTE: REFERENCE RANGES EDITED 17 Performed By: #### L501.4010 #### [facility] [address] [place], [address] CHEST 1 VIEW Observed: 03/29/2018 Status: F Source: [place] (PORTABLE) 9:40 AM [facility] REPOSITORY [facility] Imaging Services [address] [place] [address] Chest 1 View (Portable) MR#: [id number] Acct: [id number] Name: NAVEEN AKINS Rep #: [id number] : 1940 M 78 From: Bertrand Steel MD PCP: Jack Olmedo MD Status: ADM IN Study: Chest 1 View (Portable) Date of Exam: 03/29/18 Exam# [id number] Ordering Dr: Darrell Gomez MD STUDY: X-RAY [...] Bertrand Steel MD at 10:10 EDT Tel [phone], Service support , CC: Jack Olmedo MD; Darrell Gomez MD Clinical Trials Nurse: Signed BEDSIDE GLUCOSE Collected: 03/29/2018 Status: F Source: [place] 9:35 AM [facility] REPOSITORY TYPE CODE TESTS RESULT OUT OF REFERENCE UNITS RANGE LAB L501.080 70-110 mg/dL High BEDSIDE GLU 122 Result Comment: MANAGEMENT OF PATIENT CARE PER NURSING PROTOCOL Performed By: #### L501.080 #### [facility] Point of Care [address] [place] [address] BEDSIDE GLUCOSE Collected: 03/29/2018 Status: F Source: [place] 6:54 AM [facility] REPOSITORY TYPE CODE TESTS RESULT OUT OF RANGE REFERENCE UNITS LAB L501.080 70-110 mg/dL Normal BEDSIDE GLU 106 Result Comment: MANAGEMENT OF PATIENT CARE PER NURSING PROTOCOL Performed By: #### L501.080 #### [facility] Point of Care [address] [place], [place] [address] CBC W/DIFF, AUTOMATED Collected: 03/29/2018 Status: F Source: [place] 5:20 AM [facility] REPOSITORY TYPE CODE TESTS RESULT OUT OF [...] Lymph 1.74 Performed By: #### L100.0100 #### [facility] [address] [place], [address] BASIC METABOLIC Collected: 03/29/2018 Status: F Source: [place] PROFILE (BMP) 5:20 AM [facility] REPOSITORY TYPE CODE TESTS RESULT OUT OF [...] 7 Performed By: #### L500.2500, L500.3400 #### [facility] [address] [facility] [place], [address] LIVER PROFILE Collected: 03/29/2018 Status: F Source: [place] 5:20 AM [facility] REPOSITORY TYPE CODE TESTS RESULT OUT OF [...] 0.36 Performed By: #### L500.2500, L500.3400 #### [facility] [address] [place], [address] HISTORY AND PHYSICAL Observed: 03/28/2018 Status: F Source: [place] EXAM 8:28 PM [facility] REPOSITORY [facility] Medical Records Department [address] [facility] [place] [address] History and Physical 03/28/182010 MR#: [id number] Acct: [id number] Name: NAVEEN AKINS Rep #: [id number] : 1940 78 From: Jh Gustafson MD PCP: Jack Olmedo MD Status: ADM IN Location: [facility] TCU18-1 Problem List (1) Abdominal aortic aneurysm, ruptured [...] Complaint: Here for rehabilitation, strengthening, 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 The patient is a 78 year old Male with below past medical history presented to [facility] Emergency Department 01/11/2018 with syncope, left flank pain, diaphoresis, nausea. He was recently diagnosed with 6CM abdominal aortic aneurysm, had appointment with vascular surgery 01/12/2018. 01/11/2018 CT scan of abdomen/pelvis showed ruptured abdominal aortic aneurysm. Patient intubated, given succinyl choline, Ativan, Fentanyl. Transfused 4 units trauma blood. Patient [facility]ed to [facility]. 01/12/2018 Dr. Paniagua performed emergent AAA repair. Transferred to [facility] for recovery. Trach, PEG, condom catheter. Code Blue x 5, vasovagal thought secondary to Famotidine. EP recommended no intervention. Family told not to expect full recovery. HCAP treated with IV antibiotics. 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 His spouse is medically ill [...] to TCU for rehabilitation, strengthening, prior to custodial care placement. Resident's prognosis is poor. * [...] GLUCOSE METER Collected: 03/15/2018 Status: F Source: [facility] 4:34 PM HEALTH SYSTEM REPOSITORY TYPE CODE TESTS RESULT OUT OF REFERENCE UNITS RANGE LAB GLUBL(LOINC 70-99 mg/dL ) High Glucose Meter 116 Result Comment: RN NOTIFIED Performed By: #### GLMET #### [address] [place] [address] MDRD GFR Collected: 03/15/2018 Status: F Source: [facility] 3:10 AM HEALTH SYSTEM REPOSITORY TYPE CODE TESTS RESULT OUT OF RANGE REFERENCE UNITS LAB GFRFN(LOINC >60mL/min/1.73m ) 2 eGFR 48.60 Result Comment: If the patient is , multiply the result by 1.210. Performed By: #### GFR #### [facility] [address] [address] HEMOGRAM Collected: 03/15/2018 Status: F Source: [facility] 3:10 AM HEALTH SYSTEM REPOSITORY TYPE CODE [...] MPV 9.8 Performed By: #### CBC1 #### [facility] [address] [id number] BASIC PANEL Collected: 03/15/2018 Status: F Source: [facility] 3:10 AM HEALTH SYSTEM REPOSITORY TYPE CODE [...] Gap 10 Performed By: #### P8 #### [facility] [address] [address] CONSULT PROG Observed: 03/14/2018 Status: COMPLETED Source: [place] 3:33 PM CLINIC OTHER CAMPUS REPOSITORY HNO ID: [id number] Author: Benigno Domingo Service: Gastroenterology Author Type: [...] CASE MANAGEM Observed: 03/14/2018 Status: COMPLETED Source: [place] 2:50 PM [facility] OTHER CAMPUS REPOSITORY HNO ID: [id number] Author: Ariadna (Rn) MAGALY Hoang Service: Care Management Author Type: Registered Nurse Type: Care Mgt Progress Note Filed: 03/14/2018 2:54 PM Note Text: CARE MANAGEMENT PROGRESS NOTE SERVICE DATE: 03/14/2018 SERVICE TIME: 2:50 PM LOS: 5 days Met with joseluis Bolden and dtr at bedside. They are still deciding on return to [facility]. Reviewed dc for tomorrow. Dr Whittaker notified. He requests ICU bed at [facility] Paramjit faustino. SIGNATURE: Ariadna Hoang RN PATIENT NAME: Naveen Akins DATE: March 14, 2018 TIME: 2:50 PM PAGER/CONTACT #: [phone] CONSULT PROG Observed: 03/14/2018 Status: COMPLETED Source: [place] 10:36 AM [facility] OTHER CAMP[facility] REPOSITORY HNO ID: [id number] Author: Katerine Ibarra Service: Gastroenterology Author Type: [...] Defer to primary ? SIGNATURE: Katerine Ibarra APRN.CNP PATIENT NAME: Naveen Akins DATE: March 14, 2018 TIME: 10:37 AM PAGER: PROGRESS Observed: 03/14/2018 Status: COMPLETED Source: [place] 9:06 AM [facility] OTHER CAMPUS REPOSITORY HNO ID: [id number] Author: Chente Whittaker Service: Critical Care Author Type: Physician Type: Progress Notes Filed: 03/14/2018 12:35 PM Note Text: [facility] STAFF PHYSICIAN NOTE OF PERSONAL INVOLVEMENT IN [...] (03/13/18824) Intake/Output Summary (Last 24 hours) at 03/14/18 0907 Last data filed at 03/14/18 0800 Gross per 24 hour Intake 2141 ml [...] PM HEMOGRAM Collected: 03/14/2018 Status: F Source: [facility] 3:10 AM HEALTH SYSTEM REPOSITORY TYPE CODE [...] MPV 9.5 Performed By: #### CBC1 #### [place] [address] BASIC PANEL Collected: 03/14/2018 Status: F Source: [facility] 3:10 HEALTH SYSTEM REPOSITORY TYPE CODE TESTS RESULT [...] Gap 10 Performed By: #### P8 #### [place] [address] PROGRESS Observed: 03/13/2018 Status: COMPLETED Source: [place] 4:47 PM CLINIC OTHER CAMPUS REPOSITORY HNO ID: [id number] Author: Hollie Monae Service: Electrophysiology Author Type: [...] having vasovagal syncope. Received tele strips from [facility], the quality is poor. He appears to have had an artifact on the first strip. The second strip looks like asystole and then a ventricular arrhythmia, the third strips is the same. The fourth strip shows SR and then asystole. The fifth strip shows artifact. I will share the strips with Dr. Esqueda. Anoxic encephalopathy (HCC) POA: Yes Assessment AND Plan: primary service TERENCE (acute kidney injury) (HCC) POA: Yes Assessment AND Plan: primary service Acute on chronic respiratory failure (HCC) POA: Yes Assessment AND Plan: has trach [...] HOURS 03/09/182038 -- SIGNATURE: Paige Monae, MSN, [employer]ROME POLISHER.HOSTAGE NEGOTIATOR PATIENT NAME: Naveen Akins DATE: March 13, 2018 TIME: 4:48 PM PAGER/CONTACT #: [phone] CONSULT Observed: 03/13/2018 Status: COMPLETED Source: [place] 3:51 PM CLINIC OTHER CAMPUS REPOSITORY HNO ID: [id number] Author: Katerine Ibarra Service: Gastroenterology Author Type: [...] stay. He was discharged on 02/10/18 to [facility]. While at [facility] he went into cardiac arrest with multiple times of bagging for almost 40 seconds so he was transferred to [facility]. Once admitted he went into cardiac arrest for 3 minutes with ROSC maintain. GI was consulted for possible aspiration of tube feeding from Peg tube. His Peg tube was inserted in OR on 01/27/18. He have been getting TF and tolerating them since his surgery. His family stated they thought they noticed TF around his trach in [facility]. They stated they believed his secretions smelled like vanilla. They also stated he had no residual when checked at [facility]. FUNCTIONAL STATUS: Totally dependent PAST MEDICAL HISTORY Diagnosis Date - Acute on chronic respiratory failure ([facility]) 03/09/2018 - Anoxic encephalopathy ([facility]) 01/13/2018 post arrest 01/2018 - Aspiration into lower respiratory tract 03/10/2018 - Bradycardia 03/10/2018 severe bradycardia with asystole, probably vasovagal etiology - Coronary artery disease 1998 daughter states he had CAD by heart cath 1998 and had a stent placed in the maker artery - DIC (disseminated intravascular coagulation) ([facility]) 01/12/2018 - Gallstone pancreatitis 06/16/2009 - Hypokalemia 01/12/2018 - Hypomagnesemia 01/12/2018 - Hypophosphatemia 01/12/2018 - Ruptured abdominal aortic aneurysm (AAA) ([facility]) 01/12/2018 ruptured infrarenal AAA 01/12/2018, required emergent surgery; had an arrest enroute to [facility], resuscitated but had post-anoxic encephalopathy; postop course [...] 01/2018 - PICC LINE INSERTION (PICC TEAM) ([place]) 01/31/2018 - PICC LINE INSERTION (PICC TEAM) ([place]) 02/01/2018 - REPAIR UMBILICAL NATAN,5+Y/O,REDUC 05-28-09 - [...] summary on 02/11 - patient came from [facility] ) Disp: Rfl: carboxymethylcellulose sodium (REFRESH LIQUIGEL) [...] summary on 02/11 - patient came from [facility] ) Disp: Rfl: Chlorhexidine Gluconate (PERIDEX) 0.12 [...] summary on 02/11 - patient came from [facility] ) Disp: Rfl: metoclopramide HCl (REGLAN) 5 [...] summary on 02/11 - patient came from [facility] ) Disp: Rfl: pantoprazole (PROTONIX) 40 mg injection Inject 10 mL intravenously DAILY (6 AM). (Patient taking differently: Inject 40 mg intravenously DAILY (6 AM). Taking per discharge summary on 02/11 - patient came from [facility] ) Disp: Rfl: Current hospital medications: [START [...] via peg tube-s/p peg tube placement on 8/24/18 receiving TF, no residual (per RN), KUB [...] PAGER: NUTRITION Observed: 03/13/2018 Status: COMPLETED Source: [place] 1:19 PM CLINIC OTHER CAMPUS REPOSITORY HNO ID: [id number] Author: Jaimei Perez RD Service: Nutrition Therapy Author Type: Registered Dietitian Type: Nutrition Filed: 03/14/2018 2:20 PM Note Text: NUTRITION THERAPY INITIAL ASSESSMENT SERVICE DATE: 03/13/2018 SERVICE TIME: 1045am RECOMMENDED MALNUTRITION DIAGNOSIS: UNABLE TO IDENTIFY MALNUTRITION AT THIS TIME NUTRITION CARE PLAN: Problem, Etiology and Signs/Symptoms: Alternate feeding route needed related to trach/dysphagia 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 Intervention: 1. Continue TF's via PEG since having BM's----->Nutren 2.0 @40ml/hr providing 1920kcals, 80gms pro 2. Adjust feeds per renal fxn 3. Reassess feeding route for custodial with concerns of aspiration. Coordination of Care: [...] also severe ileus, who was sent from [facility] for severe bradycardia requiring CPR for almost [...] to Admission: Unsure if TF's interrupted at [facility]. Was on TPN for some [...] q 2 H PRN Date 03/12/18699 - 03/13/1865803/13/18699 - 03/14/18 0659 Shift [id number] [id number] 0818-8251 24 Hour Total 6160-9901 8494-9593 7675-5930 24 Hour Total I N T A K E IV 524 856 102 3038 286 286 IVPB 150 150 NS .45% [...] 246 775 275 275 Shift Total [phone] O U T P U [...] March 13, 2018 TIME: 1:19 PM PAGER: [phone] CASE MANAGEM Observed: 03/13/2018 Status: COMPLETED Source: [place] 11:39 AM [facility] OTHER CAMPUS REPOSITORY HNO ID: [id number] Author: Ariadna (Rn) MAGALY Hoang Service: Care [...] 13, 2018 TIME: 11:39 AM PAGER/CONTACT #: [phone] CASE MGT INIT Observed: 03/13/2018 Status: COMPLETED Source: [facility] 10:03 AM [facility] OTHER CAMPUS REPOSITORY HNO ID: [id number] Author: Ariadna (Rn) MAGALY Hoang Service: Care Management Author Type: Registered Nurse Type: Care Mgt Initial Assessment Filed: 03/13/2018 10:14 AM Note Text: CARE MANAGEMENT: ASSESSMENT AND DISCHARGE PLAN SERVICE DATE: 03/13/2018 SERVICE TIME: 10:03 AM PRIMARY CARE PHYSICIAN: Megan Hurst MD Phone: None ADMISSION STATUS: Inpatient MEDICAL: Patient/[employer] Stated Goals: TBD Health Insurance: MEDICARE A AND B Medicare Health Issues Impacting Discharge Plan: Cardiac issues Last Admission Date: Previous admit date: 01/12/2018 Is this Within the Past 30 days? No Advance Directive: FUNCTIONAL AND COGNITIVE/BEHAVIORAL PRIOR TO ADMISSION ASSESSMENT: Unable to complete assessment at this time due to pt on vent Has the Patient Been in a Group Home Facility in the Past 30 days? No SOCIAL: Living Arrangement: Previously at [facility] Lives With: N/A Patient From Facility Financial Resources: Retired Primary Contact: Extended Emergency Contact Information Primary Emergency Contact: Shelly Mckeon Address: [address] [place] [id number] Relation: Spouse Supportive: Yes Other Important Patient [...] To Be Determined Pt son Manjit- from [place], assisted with assessment. Pt Shelly is decision maker. Pt had weaned off vent at [facility] per son. Family to decide if pt will return to [facility]. SIGNATURE: Ariadna Hoang RN PATIENT NAME: Naveen Akins DATE: March 13, 2018 TIME: 10:03 AM PAGER/CONTACT #: [phone] PROGRESS Observed: 03/13/2018 Status: COMPLETED Source: [place] 9:09 AM [facility] REPOSITORY O ID: [id number] Author: Chente Whittaker Service: Critical Care Author Type: Physician Type: Progress Notes Filed: 03/13/2018 2:39 PM Note Text: [facility] STAFF PHYSICIAN NOTE OF PERSONAL INVOLVEMENT IN CARE I have reviewed the progress note obtained and documented by the resident and I personally participated in the coleman components. I have discussed the case and management of the patient's care. The following comments revise or confirm relevant coleman components of the note. 03/13/18 0600 03/13/18 0700 03/13/18 0818 03/13/18 08 BP: 116/71 104/69 Pulse: 90 92 89 [...] note patient [facility] family. Will continue TC trials as [...] GI w/u first. - [facility]ing [facility] This patient has a high [...] MD PROGRESS Observed: 03/13/2018 Status: COMPLETED Source: [place] 7:33 AM [facility] REPOSITORY O ID: [id number] Author: Tristan Holguin MD Service: Critical Care [...] ileus, and respiratory failure who presented from [facility] after cardiac arrest. Occurred 5 times yesterday [...] March 13, 2018 TIME: 7:33 AM PAGER: [phone] HEMOGRAM Collected: 03/13/2018 Status: F Source: [facility] 2:40 AM HEALTH SYSTEM REPOSITORY TYPE CODE [...] MPV 9.2 Performed By: #### CBC1 #### [place] [address] BASIC PANEL Collected: 03/13/2018 Status: F Source: [facility] 2:40 AM HEALTH SYSTEM REPOSITORY TYPE CODE [...] Gap 10 Performed By: #### P8 #### [place] [id number] PROGRESS Observed: 03/12/2018 Status: COMPLETED Source: [place] 7:27 AM CLINIC OTHER CAMPUS REPOSITORY HNO ID: [id number] Author: Lora Soliz Service: Critical Care Author Type: Physician Type: Progress Notes Filed: 03/12/2018 2:33 PM Note Text: MICU - PROGRESS NOTE SERVICE DATE: 03/12/2018 SERVICE TIME: 7:27 AM Admission Date: 03/09/2018 AGE: [age] year old LOS: 3 days Subjective Case background: Naveen Akins is a 78 year-old male with a PMH of ruptured AAA, ileus, and respiratory failure who presented from [facility] after cardiac arrest. Occurred 5 times yesterday [...] Lumen 03/09/18 Right Groin 3 days Peripheral 03/09/182029 Right Arm 20 Gauge 2 days Drain [...] or skin discoloration. DATA: LABS: Recent Labs 03/12/18 0340 03/09/182054 TROPI -- -- 0.020 WBC 5.13 < [...] March 12, 2018 TIME: 7:27 AM PAGER: [phone] [facility] STAFF PHYSICIAN NOTE OF PERSONAL INVOLVEMENT IN [...] reviewed LTAC notes/ labs/ CT; CAD no PA; reported TF aspiration and vagal BM events [...] PM HEMOGRAM Collected: 03/12/2018 Status: F Source: [facility] 3:40 AM HEALTH SYSTEM REPOSITORY TYPE CODE [...] MPV 9.5 Performed By: #### CBC1 #### [place] [address] BASIC PANEL Collected: 03/12/2018 Status: F Source: [facility] 3:40 AM HEALTH SYSTEM REPOSITORY TYPE CODE [...] Gap 11 Performed By: #### P8 #### [place] [address] CONSULT Observed: 03/11/2018 Status: COMPLETED Source: [place] 5:21 PM CLINIC OTHER CAMPUS REPOSITORY HNO ID: [id number] Author: Simi Esqueda Service: Electrophysiology Author Type: Physician Type: Consults Filed: 03/11/2018 6:53 PM Note Text: CONSULT: [facility] Electrophysiology (EP) - [facility] ([facility]) SERVICE DATE: 03/11/2018 SERVICE TIME: 17:00 CONSULTING PHYSICIAN: Simi Esqueda MD PCP: Megan Hurst MD ATTENDING: Lora Soliz REASON FOR CONSULT: Arrhythmias and bradycardia, pauses, asystole Subjective CHIEF COMPLAINT: Bradycardia [R00.1] Anoxic brain injury (HCC) [G93.1] HISTORY OF PRESENT ILLNESS: Mr. Akins is a 78 year old male transferred from [facility] to the MICU due to recurrent episodes of severe bradycardia and asystole. He has a history of CAD with previous PCI/stent 1998 according to his daughter. She states he had maker blockage and received a stent, which was done at a [facility]. He experienced ruptured AAA in 01/2018 which required urgent transfer to [facility]. Enroute he arrested, the daughter states. He was resuscitated but developed severe post-anoxic encephalopathy. He underwent emergent AAA repair here at [facility] on 01/12/2018. Postoperative course was quite complicated, requiring multiple reoperations for the abdominal site and also developed acute renal failure requiring hemodialysis, respiratory failure requiring tracheostomy, and also required PEG tube. He was then discharged to [facility] in [place]. The daughter states that on 03/09 he had 5 episodes of severely slow heart rates and heart stopping which resulted in CPR and such by the [facility] team. She recorded the times of each one: 1) 5:00 AM, 2) 8:37 AM, 3) 12:05 PM, 4) 2:18 PM, and 5) 4:44 PM. The available notes from [facility] indicate he developed severe sinus bradycardia and [...] was not found to be having an PA or acute coronary syndrome. Dr. Rai of Cardiology has already evaluated him. PAST MEDICAL HISTORY Diagnosis Date - Acute on chronic respiratory failure (HCC) 03/09/2018 - Anoxic encephalopathy ([facility]) 01/13/2018 post arrest 01/2018 - Aspiration into lower respiratory tract 03/10/2018 - Bradycardia 03/10/2018 severe bradycardia with asystole, probably vasovagal etiology - Coronary artery disease 1998 daughter states he had CAD by heart cath 1998 and had a stent placed in the maker artery - DIC (disseminated intravascular coagulation) ([facility]) 01/12/2018 - Gallstone pancreatitis 06/16/2009 - Hypokalemia 01/12/2018 - Hypomagnesemia 01/12/2018 - Hypophosphatemia 01/12/2018 - Ruptured abdominal aortic aneurysm (AAA) ([facility]) 01/12/2018 ruptured infrarenal AAA 01/12/2018, required emergent surgery; had an arrest enroute to [facility], resuscitated but had post-anoxic encephalopathy; postop course [...] 104 (!) 31 100 % - - 03/09/182214 96/78 36.3 ?C (97.3 ?F) 102 17 100 % - - 03/09/182199 107/65 36.3 ?C (97.3 ?F) 109 23 100 % - - 03/09/182144 143/74 36 ?C (96.8 ?F) 105 21 100 % - - 03/09/182129 105/67 36.2 ?C (97.2 ?F) 78 16 100 % - - 03/09/182114 118/100 36 ?C (96.8 ?F) 112 (!) 31 100 % - - 03/09/182099 (!) 82/47 - (!) 122 29 93 [...] Most recent telemetry monitoring Outside chart from [facility] reviewed. Past 72 Hour Labs: Recent Labs 03/11/18 0410 03/09/182054 TROPI -- -- 0.020 WBC 6.17 [...] primary heart rate/rhythm problem. The reports from [facility] of ventricular fibrillation I am inclined not [...] per medical service(s) TERENCE (acute kidney injury) ([facility]) POA: Yes Assessment AND Plan: management per medical service(s) Acute on chronic respiratory failure (HCC) POA: Yes Assessment AND Plan: management per medical service(s) Aspiration into lower respiratory tract POA: Yes Assessment AND Plan: management per medical service(s) Bradycardia POA: Yes Assessment AND Plan: see above Sepsis ([facility]) POA: Yes Assessment AND Plan: management per medical service(s) Tracheostomy in place ([facility]) POA: Yes Assessment AND Plan: management per medical service(s) Vasovagal syncope POA: Yes Assessment AND Plan: see above Shock ([facility]) POA: Yes Assessment AND Plan: management per medical service(s) Asystole ([facility]) POA: Yes Assessment AND Plan: see [...] concerns. The EP group pager is [phone]). Our service will follow at a distance, particularly over the weekend. SIGNATURE: Simi Esqueda MD PATIENT NAME: Naveen Akins DATE: March 11, 2018 TIME: 5:21 PM PAGER/CONTACT #: [phone] PROGRESS Observed: 03/11/2018 Status: COMPLETED Source: [place] 11:59 AM CLINIC OTHER CAMPUS REPOSITORY HNO ID: [id number] Author: Lora Soliz Service: Critical Care Author Type: Physician Type: Progress Notes Filed: 03/11/2018 12:03 PM Note Text: [facility] STAFF PHYSICIAN NOTE OF PERSONAL INVOLVEMENT IN [...] reviewed LTAC notes/ labs/ CT; CAD no PA; ?drug ?aspiration and vagal BM events per [...] AM PROGRESS Observed: 03/11/2018 Status: COMPLETED Source: [place] 7:27 AM [facility] REPOSITORY [facility] ID: [id number] Author: Ben (Res) MD Angelo Service: Critical Care Author Type: Resident Type: Progress Notes Filed: 03/11/2018 12:32 PM Note Text: Attestation signed by Lora Soliz at 03/11/2018 12:39 PM See and Link to Dr Lora Soliz progress note/attestation today. Medical Intensive Care Progress Note March 11, 2018 Patient Name: Naveen Akins Patient Location: [id number]/[facility]-481* Admission Date: 03/09/2018 Length of Stay: 2 Primary Service: Medical Intensive Care Case background: Naveen Akins is a 78 year-old male with a PMH of ruptured AAA, ileus, and respiratory failure who presented from [facility] after cardiac arrest. Occurred 5 times yesterday [...] summary on 02/11 - patient came from [facility] ) carboxymethylcellulose sodium (REFRESH LIQUIGEL) 1 % dlgl Use 1-2 Drops in both eyes as needed (Dry Eyes). (Patient taking differently: Use 1-2 Drops in both eyes as needed (Dry Eyes). Taking per discharge summary on 02/11 - patient came from [facility] ) ipratropium-albuterol (DUONEB) 0.5 mg-3 mg(2.5 mg base)/3 mL nebu Inhale 3 mL as instructed four times daily. (Patient taking differently: Inhale 3 mL as instructed four times daily. Taking per discharge summary on 02/11 - patient came from [facility] ) Chlorhexidine Gluconate (PERIDEX) 0.12 % solution Take 15 mL by mouth every 12 hours. (Patient taking differently: Take 15 mL by mouth every 12 hours. Taking per discharge summary on 02/11 - patient came from [facility] ) heparin 5,000 unit/mL injection Inject 1 mL subcutaneously every 12 hours. (Patient taking differently: Inject 5,000 Units subcutaneously every 12 hours. Taking per discharge summary on 02/11 - patient came from [facility] ) metoclopramide HCl (REGLAN) 5 mg/mL injection Inject 5 mg intravenously every 12 hours. (Patient taking differently: Inject 5 mg intravenously every 12 hours. Taking per discharge summary on 02/11 - patient came from [facility] ) senna leaf extract 176 mg/5 mL syrp 15 mL by OROGASTRIC route twice daily. (Patient taking differently: 15 mL by OROGASTRIC route twice daily. Taking per discharge summary on 02/11 - patient came from [facility] ) pantoprazole (PROTONIX) 40 mg injection Inject 10 mL intravenously DAILY (6 AM). (Patient taking differently: Inject 40 mg intravenously DAILY (6 AM). Taking per discharge summary on 02/11 - patient came from [facility] ) Objective Present Condition: 03/11/18 0400 03/11/18 [...] (DUONEB) 3 mL INHALATION QID Yashu (Res) Dhamija 3 mL at 03/10/18 1945 [START ON 03/12/2018] levoFLOXacin 750 mg in D5W 150 mL (LEVAQUIN) 750 mg INTRAVENOUS q 48 HR Lora Soliz vancomycin iv piggyback 1 g in D5W 200 mL (VANCOCIN) 1 g INTRAVENOUS q 24 HR Yashu (Res) Ashleymihilda Last Rate: 200 mL/hr at 03/10/18 2359 1 g at 03/10/18 2359 carboxymethylcellulose sodium 1-2 Drop (CELLUVISC) 1-2 Drop [...] H Fidencio (Res) Santana 5 mL at 03/10/18 2148 fentaNYL 50 mcg/mL 25-50 mcg injection (SUBLIMAZE) [...] MD Donna Last Rate: 100 mL/hr at 03/11/18554 3.375 g at 03/11/18554 Labs: CBC: Recent Labs 03/11/1840903/10/1879903/10/1832903/09/182054 WBC 6.17 -- 10.64* 26.07* HB 7.4* [...] colonizers Signed: Ben Stephens MD, PGY-1 Pager: [phone] Date: March 11, 2018 Time: 7:27 AM Recommendations are not finalized until co-signed by Staff physician. HEMOGRAM Collected: 03/11/2018 Status: F Source: [facility] 4:10 AM HEALTH SYSTEM REPOSITORY TYPE CODE [...] MPV 9.5 Performed By: #### CBC1 #### [place] [address] BASIC PANEL Collected: 03/11/2018 Status: F Source: [facility] 4:10 AM HEALTH SYSTEM REPOSITORY TYPE CODE [...] Gap 10 Performed By: #### P8 #### [address] [address] CONSULT Observed: 03/10/2018 Status: COMPLETED Source: [place] 2:20 PM CLINIC OTHER CAMPUS REPOSITORY HNO ID: [id number] Author: Rony Rai Service: Cardiovascular Disease Author [...] requiring tracheostomy. The patient was discharged to [facility] rehabilitation. He has been extubated and had his oh wound continued to be managed for secondary healing. The patient was brought to the hospital once again after he reportedly sustained repeated episodes of bradycardia pulseless activity necessitating CODE BLUE to be run on several occasions. I have reviewed the patient's and documentation from the chart and electronic chart at [facility]. There is no strips that I [...] EK lead EKG shows normal sinus rhythm. MN and QT intervals are normal. There are [...] clinical course. Our cardiac advanced nurse practitioner (ANP/HOSTAGE NEGOTIATOR) will follow in the am. Please don't hesitate to contact me, or the converting supervisor dispatcher bus and trolley, if there are any questions regarding the care of the patient. Rony Rai MD, FACC [facility]. March 10, 2018 Pager: [phone] PROGRESS Observed: 03/10/2018 Status: COMPLETED Source: [place] 11:42 AM CLINIC OTHER CAMPUS REPOSITORY O ID: [id number] Author: Lora Soliz Service: Critical Care Author Type: Physician Type: Progress Notes Filed: 03/10/2018 11:51 AM Note Text: [facility] STAFF PHYSICIAN NOTE OF PERSONAL INVOLVEMENT IN [...] Hypercapnea) ASS: 1. Symptomatic bradycardia, ?CAD no PA; ?drug ?aspiration and vagal BM events per [...] AM EKG (AK,AV,EU,FV,HL,CYNTHIA,MM,SP) Observed: Status: F Source: [place] 03/10/2018 9:19 AM CLINIC OTHER CAMPUS REPOSITORY NAME : NAVEEN AKINS PID : [id number] : 1940 Gender : Male Race : ORD : [id number] Procedure Date : Mar 10 2018 09:19 [...] ms QTC Calculation(Bezet) : 485 ms P Dobson : 66 degrees R Dobson : 22 degrees T Dobson : 45 degrees Test Reason : Arrhythmia Location : 48 : [place] [address] Overread By : Simi Esqueda M.D. Editted By : Simi Esqueda M.D. Referred By : LORA SOLIZ Acquired by : Chantell GREENE HGB Collected: 03/10/2018 Status: F Source: [facility] 8:00 AM HEALTH SYSTEM REPOSITORY TYPE CODE TESTS RESULT OUT OF RANGE REFERENCE UNITS LAB HGBI(LOINC) 13.7-17.5 g/dL Low Hgb 7.6 Performed By: #### HGBI #### [place] [address] PROGRESS Observed: 03/10/2018 Status: COMPLETED Source: [place] 7:59 AM [facility] [place] REPOSITORY HNO ID: [id number] Author: Herman Sutton Service: Critical Care Author Type: Physician Type: Progress Notes Filed: 03/10/2018 8:03 AM Note Text: CODE BLUE NOTE PATIENT NAME: Naveen Akins Date of Code Event: 03/09/2018 Location: [facility] Time of Event: 2042 Witnessed Event?:yes Type [...] for complete orders and nursing/respiratory documentation. SIGNATURE: Herman Sutton MD DATE of SERVICE: 03/09/2018 TIME of SERVICE: 900pm This is an electronically created document. IF PRINTED, PLEASE DO NOT REMOVE FROM THE CHART OR MODIFY PRINTED COPY. ALLIED HEALTH Observed: 03/10/2018 Status: COMPLETED Source: [place] 7:55 AM [facility] [place] REPOSITORY HNO ID: [id number] Author: Nicky Russell (Chaplain), Student Service: Spiritual Care Author Type: Crack Off Person Type: Allied Health Filed: 03/10/2018 7:57 AM Note Text: SPIRITUALCARE Spiritual Care Visit- Brief Note Name: Naveen Akins Date: March 10, 2018 Notes: Provided Spiritual Care for two family members in MICU waiting room -- offered prayer for their father who almost but he was brought back. Crack Off Person Signature: Chaplain Yuri To contact the Spiritual Care Department: Please call [phone] or Page the On-Call Crack Off Person at pager [phone] Thank you for the opportunity to be of service. This is an electronically created document. IF PRINTED, PLEASE DO NOT REMOVE FROM THE CHART OR MODIFY PRINTED COPY. PROGRESS Observed: 03/10/2018 Status: COMPLETED Source: [place] 6:37 AM [facility] OTHER CAMP[facility] REPOSITORY HNO ID: [id number] Author: Tristan Holguin MD Service: Critical Care [...] ileus, and respiratory failure who presented from [facility] after cardiac arrest. Occurred 5 times yesterday [...] Lumen 03/09/18 Right Groin 1 day Peripheral 03/09/182029 Right Arm 20 Gauge less than 1 [...] March 10, 2018 TIME: 6:38 AM PAGER: [phone] TYPE AND SCREEN Collected: 03/10/2018 Status: F Source: [facility] 4:45 AM HEALTH SYSTEM REPOSITORY TYPE CODE TESTS RESULT OUT OF REFERENCE UNITS RANGE LAB ABO(LOINC) O ABO Group LAB LABOR TRAINER(LOINC ) RH Type Positive LAB ABSCR(LOIN C) Antibody NEGATIVE Screen LAB BBCMT(LOIN C) Comment See Below Result Comment: Screen &/or Xmatch expires in 3 days at 12 midnight. Redraw patient at that time. Performed By: #### T&S #### [place] [address] RBC PRODUCTS Collected: 03/10/2018 Status: F Source: [facility] 4:45 AM HEALTH SYSTEM REPOSITORY TYPE CODE TESTS RESULT OUT OF REFERENCE UNITS RANGE LAB UNIT1(LOINC ) Xmatch Unit 1 see below Result Comment: Compatible Performed By: #### RBCPS #### [place] [address] BASIC PANEL Collected: 03/10/2018 Status: F Source: [facility] 3:30 AM HEALTH SYSTEM REPOSITORY TYPE CODE [...] Gap 10 Performed By: #### P8 #### [place] [address] HEMOGRAM Collected: 03/10/2018 Status: F Source: [facility] 3:30 AM HEALTH SYSTEM REPOSITORY TYPE CODE [...] MPV 9.6 Performed By: #### CBC1 #### [facility] [address] [place] [address] LACTIC ACID Collected: 03/10/2018 Status: F Source: [facility] 12:30 AM HEALTH SYSTEM REPOSITORY TYPE CODE TESTS RESULT OUT OF REFERENCE UNITS RANGE LAB LAC(LOINC) 0.4-2.0 mEq/L Lactic Acid 0.8 Performed By: #### LAC #### [place] [address] HEMOGLOBIN A1C Collected: 03/10/2018 Status: F Source: [facility] 12:30 AM [facility] REPOSITORY TYPE CODE TESTS RESULT OUT OF REFERENCE UNITS RANGE LAB LA1C2(LOINC 4.5-6.2 % ) Hgb A1c 5.1 LAB ESAV(LOINC) mg/dl Est. Avg. 100 Glucose Performed By: #### LA1C #### [place] [address] URINALYSIS ROUTINE Collected: 03/09/2018 Status: F Source: [facility] 10:45 PM HEALTH SYSTEM REPOSITORY TYPE CODE [...] Urine NEGATIVE LAB SPG(LOINC) 1.005-1.030 Specific 1.016 [place], Ur LAB PHUR(LOINC 5.0-8.0 ) pH,Urine 6.0 [...] Cast 3.9 Performed By: #### URIN2 #### [place] [address] BLOOD GAS ARTERIAL Collected: 03/09/2018 Status: F Source: [facility] 10:[facility] HEALTH SYSTEM REPOSITORY TYPE CODE TESTS [...] Excess -2.6 Performed By: #### ABG #### [place] [address] IONIZED CALCIUM Collected: 03/09/2018 Status: F Source: [facility] 10:45 PM HEALTH SYSTEM REPOSITORY TYPE CODE TESTS RESULT OUT OF REFERENCE UNITS RANGE LAB CAION(LOINC 4.43-4.93 mg/dL ) High Ionized 5.14 Calcium LAB PHCAI(LOINC 7.320-7.420 ) pH High 7.446 LAB CAPH(LOINC) 4.36-4.73 mg/dL High Ionized 5.26 Ca,PH7.4 Performed By: #### IONCA #### [facility] [address] [place] [address] Observed: 03/09/2018 Status: F Source: [facility] BLOOD 10:45 PM HEALTH SYSTEM REPOSITORY Test performed at [facility] No growth Performed By: #### C_BLO #### [facility] [address] [place] [address] Observed: 03/09/2018 Status: F Source: [facility] URINE 10:45 PM HEALTH SYSTEM REPOSITORY Test performed at [facility] ORGANISM: Enterobacter cloacae (ID: 1) >100,000 CFU/ml Performed By: #### C_URI #### [place] [address] CHEST 1 VIEW Observed: 03/09/2018 Status: F Source: [facility] 10:10 PM HEALTH SYSTEM REPOSITORY Performed at [facility] APPROVED BY: TIM LEIJA MD EXAM: CHEST [...] 1 VIEW Observed: 03/09/2018 Status: F Source: [facility] 10:10 PM HEALTH SYSTEM REPOSITORY Performed at [facility] APPROVED BY: TIM LEIJA MD EXAM: ABDOMEN [...] change. PROCEDURE Observed: 03/09/2018 Status: COMPLETED Source: [place] 9:57 PM CLINIC OTHER CAMPUS REPOSITORY HNO ID: [id number] Author: Goldie Duenas Service: Critical Care Author [...] Inserted By: Resident Supervision: Dr Sutton [facility] Central Line Insertion checklist, attached to [...] 2804 PROGRESS Observed: 03/09/2018 Status: COMPLETED Source: [place] 9:30 PM CLINIC OTHER CAMPUS REPOSITORY HNO ID: [id number] Author: Herman Sutton Service: Critical Care Author Type: Physician Type: Progress Notes Filed: 03/10/2018 7:58 AM Note Text: Please link this note to the resident note written on 06/10/17 [facility] STAFF PHYSICIAN NOTE OF PERSONAL INVOLVEMENT IN [...] also severe ileus, who was sent from [facility] for severe bradycardia requiring CPR for almost [...] of care, medical plan for the day, quality assurance consultant recommendations, medical disposition and current medical [...] OF CARE Observed: 03/09/2018 Status: COMPLETED Source: [place] 9:02 PM CLINIC OTHER CAMPUS REPOSITORY HNO ID: [id number] Author: Berta Duenas (Pharmacist) Service: (none) Author Type: Pharmacist Type: Plan of Care Filed: 03/09/2018 9:05 PM Note Text: MEDICATION HISTORY AND MEDICATION RECONCILIATION Patient Name:Tom Akins : 1940 Source of history:half-way/Other MAR - Discharge Summary on 02/11 Medication Nonadherence Identified: No barriers noted - Patient came from [facility] The above information represents the best possible medication history: Yes Reconciliation completed? Yes All WIRE FRAME MAKER medications addressed by LIP Additional comments: N/A Allergies: ALLERGIES No Known Allergies Preferred Pharmacy: [facility] ([phone]), however, patient was admitted from [facility] Current WIRE FRAME MAKER Medications: Prior to Admission medications as of [...] [facility] pantoprazole (PROTONIX) 40 mg injection Inject 10 mL intravenously DAILY (6 AM). Patient taking differently: Inject 40 mg intravenously DAILY (6 AM). Taking per discharge summary on 02/11 - [facility] from [facility] KRISTYN NAGY March 09, 2018 9:02 PM HEMOGRAM Collected: 03/09/2018 Status: F Source: [facility] 8:55 HEALTH SYSTEM REPOSITORY TYPE CODE TESTS [...] MPV 10.0 Performed By: #### CBC1 #### [facility] [address] [place] [address] LACTIC ACID Collected: 03/09/2018 Status: F Source: [facility] 8:55 PM HEALTH SYSTEM REPOSITORY TYPE CODE TESTS RESULT OUT OF REFERENCE UNITS RANGE LAB LAC(LOINC) 0.4-2.0 mEq/L High alert Lactic Acid 5.2 Performed By: #### LAC #### [facility] [address] [place] [address] COMPREHENSIVE PANEL Collected: 03/09/2018 Status: F Source: [facility] 8:55 HEALTH SYSTEM REPOSITORY TYPE CODE TESTS [...] Gap 13 Performed By: #### P14 #### [facility] [address] [place] [address] PHOSPHORUS BLOOD Collected: 03/09/2018 Status: F Source: [facility] 8:55 PM HEALTH SYSTEM REPOSITORY TYPE CODE TESTS RESULT OUT OF REFERENCE UNITS RANGE LAB PHOS(LOINC 2.5-4.9 mg/dL ) Phosphorus Blood 4.8 Performed By: #### PHOS #### [facility] [address] [place] [address] MAGNESIUM BLOOD Collected: 03/09/2018 Status: F Source: [facility] 8:55 PM HEALTH SYSTEM REPOSITORY TYPE CODE TESTS RESULT OUT OF REFERENCE UNITS RANGE LAB MAG(LOINC) 1.6-2.6 mg/dL Magnesium Blood 2.4 Result Comment: SPECIMEN SLIGHTLY HEMOLYZED Performed By: #### MAG #### [place] [address] TROPONIN I Collected: 03/09/2018 Status: F Source: [facility] 8:55 PM HEALTH SYSTEM REPOSITORY TYPE CODE TESTS RESULT OUT OF REFERENCE UNITS RANGE LAB TROP(LOINC) 0.015-0.045 ng/ml Troponin I 0.020 Performed By: #### TROP #### [place] [address] Observed: 03/09/2018 Status: F Source: [facility] MRSA SCREEN 8:55 PM HEALTH SYSTEM REPOSITORY Test performed at [facility] No MRSA detected. Performed By: #### MRSA #### [place] [address] NURSING PROG Observed: 03/09/2018 Status: COMPLETED Source: [place] 8:00 PM CLINIC OTHER CAMPUS REPOSITORY HNO ID: [id number] Author: Indira (Rn) MAGALY Conrad Service: (none) Author Type: Registered Nurse Type: Nursing Progress Note Filed: 03/10/2018 2:23 AM Note Text: Nursing Progress Note Patient Name: Naveen Akins Patient Location: [place] [address]* Daily Note: 2039 Patient was noticed to [...] Conrad RN Observed: 03/09/2018 Status: C Source: [facility] 8:00 AM HEALTH SYSTEM RESPIRATORY REPOSITORY Test performed at [facility] Few normal oropharyngeal john NOTE CORRECTED REPORT BELOW PREVIOUSLY REPORTED ACINETOBACTER ON 03-13-18 HAS BEEN CORRECTED TO NON-NURSING CLINICAL DIRECTOR SPECIES. Many Gram positive bacilli, diphtheroids Moderate Gram negative bacilli Rare Gram positive cocci Moderate Polymorphonuclear leukocytes Few Squamous epithelial cells ORGANISM: Nonfermenter species (ID: 2) Moderate Strain 1 ORGANISM: Nonfermenter species (ID: 1) Moderate Strain 2 Performed By: #### C_RES #### [facility] [address] [place] [address] NURSING PROG Observed: 02/10/2018 Status: COMPLETED Source: [place] 12:15 AM [facility] REPOSITORY HNO ID: [id number] Author: Kosta Kunz RN Service: Nursing Author Type: Registered Nurse Type: Nursing Progress Note Filed: 02/10/2018 12:30 AM Note Text: Nursing Progress Note Patient Name: Naveen Akins Patient Location: [place] [address] [address]* Daily Note: Pt transported to [facility] via [facility]. Report given to [facility]. This note was completed by: Kosta Kunz RN CNDS Observed: 02/10/2018 Status: COMPLETED Source: [place] 12:15 AM [facility] REPOSITORY HNO ID: [id number] Author: Paulo Lovelace (Cns) Service: Critical Care Author Type: Nurse Specialist Type: Discharge Summaries Filed: 03/12/2018 8:22 AM Note Text: DISCHARGE SUMMARY PATIENT NAME: Naveen Akins ADMISSION DATE: 01/12/2018 DISCHARGE DATE: 02/10/18 ATTENDING PHYSICIAN: Cely att. providers found Code Status: Not on [...] CONDITION AT DISCHARGE: stable hemodynamics [facility] INFORMATION PROVIDED TO PATIENT: [...] Dx: 1. AAA (abdominal aortic aneurysm, ruptured) ([facility]) carboxymethylcellulose sodium (REFRESH LIQUIGEL) 1 % dlgl [...] management of this patient. SIGNATURE: Paulo Lovelace APRN.[facility] PAGER/CONTACT #: [phone] DATE: 2018 TIME: 9:31 AM NURSING PROG Observed: 02/09/2018 Status: COMPLETED Source: [place] 8:10 PM [facility] REPOSITORY HNO ID: [id number] Author: Ariadna TylerRn) MAGALY Nolan Service: Nursing Author Type: Registered Nurse Type: Nursing Progress Note Filed: 02/09/2018 8:11 PM Note Text: [facility]GEM Observed: 02/09/2018 Status: COMPLETED Source: [place] 7:26 PM [facility] OTHER [place] REPOSITORY HNO ID: [id number] Author: Dolly TylerRn) MAGALY Santillan Service: Care [...] the discharge. Family has phone number for [facility]. Transport arranged for 10pm and orders sent via [facility]. SIGNATURE: Dolly Santillan RN PATIENT NAME: Naveen Akins DATE: February 09, 2018 TIME: 7:26 PM PAGER/CONTACT #: [phone] GLUCOSE METER Collected: 02/09/2018 Status: F Source: [facility] 5:56 PM HEALTH SYSTEM REPOSITORY TYPE CODE TESTS RESULT OUT OF REFERENCE UNITS RANGE LAB GLUBL(LOINC 70-99 mg/dL ) High Glucose Meter 146 Result Comment: RN NOTIFIED Performed By: #### GLMET #### [place] [address] CASE MANAGEM Observed: 02/09/2018 Status: COMPLETED Source: [place] 3:41 PM [facility] OTHER [place] REPOSITORY HNO ID: [id number] Author: Lupe TylerRn) MAGALY Cheng Service: Care [...] still undecided on [facility]. Paulo Lovelace APRN.CHAIR INSPECTOR notified. Paulo Lovelace APRN.CHAIR INSPECTOR states patient to be discharged today. IM letter given to patient's spouse Preeti. periodicals library assistant manager Julia Toussaint notified. Will continue to follow for DC planning needs. SIGNATURE: Lupe Cheng RN PATIENT NAME: Naveen Akins DATE: February 09, 2018 TIME: 3:45 PM PAGER/CONTACT #: [phone] PROGRESS Observed: 02/09/2018 Status: COMPLETED Source: [place] 3:23 PM CLINIC OTHER CAMPUS REPOSITORY O ID: [id number] Author: Shyam Degroot Service: Pulmonary Disease Author [...] CA 7.4* MG 2.4 ABG: Invalid input(s): [id number] Assessment/Plan IMPRESSION: Critical Care Documentation: The patient [...] Akins PROGRESS Observed: 02/09/2018 Status: COMPLETED Source: [place] 2:34 PM CLINIC OTHER CAMPUS REPOSITORY [facility] ID: [id number] Author: Shen Lorenzo Service: Nephrology Author Type: [...] INHALATION BID Dorcas Palafox 0.5 mg at 02/09/18 0812 senna leaf extract 176 mg/5 mL 528 mg 15 mL OROGASTRIC BID Dionicio (Res) Stevens 528 mg at 02/09/18 0901 carboxymethylcellulose sodium 1-2 Drop (CELLUVISC) 1-2 Drop BOTH EYES PRN Venkat Paniagua 2 Drop at 01/26/18 1625 polyvinyl alcohol-povidone 1.4-0.6 % 1 Drop (REFRESH) 1 Drop BOTH EYES QID PRN Paulo (Clinical Applications Manager) Hudock 1 Drop at 01/26/18 1724 heparin 1,000 unit/mL 4,000 Units injection 4,000 Units INTRAVENOUS 3 Times weekly with dialysis Ancelmovinaylitaidalmis Eder 4,000 Units at 02/03/18 2340 heparin 5,000 [...] 15 mL at 02/09/18 0900 No current Epic-ordered outpatient prescriptions on file. Vitals: BP 119/62 [...] do not hesitate to contact me at [phone] if there is any question or concern. Rosanna Talbert MD (Shen Lorenzo) PLAN OF CARE Observed: 02/09/2018 Status: COMPLETED Source: [place] 2:33 PM CLINIC OTHER CAMPUS REPOSITORY O ID: [id number] Author: Dorie Schofield (Pharmacist) Service: Pharmacy Author [...] PHARMACIST February 09, 2018 2:33 PM Pager: [phone] 02/09/2018 2:33 PM Medication List ASK your [...] OF CARE Observed: 02/09/2018 Status: COMPLETED Source: [place] 2:30 PM [facility] REPOSITORY HNO ID: [id number] Author: Gilbert Jeronimo Service: Vascular Surgery Author [...] SOCIAL WORK Observed: 02/09/2018 Status: COMPLETED Source: [place] 1:49 PM [facility] REPOSITORY HNO ID: [id number] Author: Destiney Orozco (Sw) Service: Social Work Author Type: Composite Layup Worker Type: Social Work Filed: 02/09/2018 2:05 PM Note Text: SOCIAL WORK PROGRESS NOTE SERVICE DATE: 02/09/2018 SERVICE TIME: 1:49 PM LOS: 28 days Disposition Issue Referred by CM re: assist with family who have been hesitant in cooperating for pt to go to next level of care - . LTAC. Discussed with CHAIR INSPECTOR who confirms pt is medically ready for d/c. Met with pt's , Shelly and Ariadna plasencia. Family expressed concern that pt not leave [facility] until medically ready. Dr. Degroot to talk with family and assure them his medical group follows pts at [facility]. Daughter, Ariadna states she and her sister toured [facility] and a concern is that there is not accommodations for family. (pt's has slept in waiting room since pt admitted). Discussed with family not in pt's best to remain in hospital longer than necessary. [facility] c[facility] here and to meet with family. Bed is available at [facility]. There is a recliner can sleep on in pt's room. Time Spent (minutes): 30 SIGNATURE: ANDREA Hill PATIENT NAME: Naveen Akins DATE: February 09, 2018 TIME: 1:49 PM PAGER/CONTACT #: [phone] NUTRITION Observed: 02/09/2018 Status: COMPLETED Source: [place] 11:54 AM CLINIC OTHER CAMPUS REPOSITORY HNO ID: [id number] Author: Viry Mosher RD Service: NST-Nutrition Support [...] Addem: Notified that patient is transfering to [facility] today, TPN Orders are On the paper chart, and will send unspiked TPN bag after 6 pm to [facility] with the patient Nutritional Status: [...] Labs 02/09/18 0330 PREALB 16.9* Viry Mosher, RD, LD, [facility] Pager: [phone] Increments: 3 PROGRESS Observed: 02/09/2018 Status: COMPLETED Source: [place] 11:45 AM CLINIC OTHER CAMPUS REPOSITORY HNO ID: [id number] Author: Dorcas Mcdonnell III Service: Infectious Disease [...] 09, 2018 TIME: 2:17 PM PAGER/CONTACT #: [phone] PROGRESS Observed: 02/09/2018 Status: COMPLETED Source: [place] 11:18 AM CLINIC OTHER CAMPUS REPOSITORY O ID: [id number] Author: Gilbert Jeronimo Service: Vascular Surgery Author [...] identified. I discussed this case with the rfid developer on today and he concurs that there is no reason why the patient should not be transferred to the LTAC/[facility]. Patient's family did visit this and they stated may be they wanted to visit another LTAC or 2 but I remind him that one of the things that they're concerned about him leaving here is lack of continuity of care and that at [facility] he will be able to get the same rfid developer the same block sorter the same infectious disease doctors that he [...] off dialysis and I discuss with this block sorter and they are comfortable in leaving him [...] questions or concerns Mon-Fri 6a-5p please page [phone]. After 5pm and on Weekends and Holidays, please page [phone] if in ICU or [phone] if on RNF. SERVICE DATE: 02/09/2018 Subjective [...] 28.43 kg/m? O2 Therapy: Ventilator IANDO: Date 02/08/18 07 - 02/09/18 0659 02/09/18 07 - 02/10/18 0659 Shift 7681-7980 9392-4105 8489-3474 24 Hour Total 7931-6570 8654-3171 5016-9888 24 Hour Total I N T A K E IV 200 30 70 300 NS 0.9% 30 70 100 Cipro IV 200 200 Blood Products 301 301 PRBC Intake (mL) 300 300 Packed Red Blood Cells Number of Units 1 1 TPN/PPN 155 922 0654 TPN 188 394 3343 Irrigants 30 30 Irrigant/Flush Amount In (GI Feed/Drain 01/27/18 Assessment Gastrostomy) 30 30 Shift Total 501 041 158 6971 O U T P U T Urine 660 789 085 8150 Tube Output ( Condom Catheter 02/08/18 1800) 660 308 090 4550 Drains 0 0 Negative Pressure: Output (mL) (Negative Pressure Wound Therapy 01/12/18 0749 Abdomen) 0 0 Tubes 500 25 525 Drain/Tube Output (Drain/Tube 01/19/18 1015 Midline Abdomen) 25 25 Drain/Tube Output (Drain/Tube 02/02/18 0300 Fecal Management System Rectum) 500 500 # of BMs Stool Incontinence 1 x 1 x Shift Total 660 089 511 8112 Weight (kg) 84.8 84.8 84.8 84.8 84.8 [...] Noted - Ruptured abdominal aortic aneurysm (AAA) ([facility]) 01/12/2018 - TERENCE (acute kidney injury) [...] Note: Added automatically from request for surgery [id number] 77 year old male with Ruptured AAA [...] for LTAC placement, awaiting family decision/tour SIGNATURE: Gilbetr Jeronimo MD PATIENT NAME: Naveen Akins DATE: February 09, 2018 TIME: 11:23 AM Pager: [phone] FECAL OCCULT BLOOD Collected: 02/09/2018 Status: F Source: [facility] 9:50 AM HEALTH SYSTEM REPOSITORY TYPE CODE TESTS RESULT OUT OF REFERENCE UNITS RANGE LAB OCCU2(LOINC NEGATIVE ) Fecal NEGATIVE Occult Blood Performed By: #### OCCU2 #### [place] [address] CASE MANAGEM Observed: 02/09/2018 Status: COMPLETED Source: [place] 9:42 AM CLINIC OTHER CAMPUS REPOSITORY HNO ID: [id number] Author: Lupe (Rn) MAGALY Cheng Service: Care [...] states they are leaning towards [facility] but will have their final decision by this afternoon. factory process workers Jenna Orozco and Paulo Lovelace APRN.CHAIR INSPECTOR updated. Will continue to follow clinical course for further DC planning needs. SIGNATURE: Lupe Cheng RN PATIENT NAME: Naveen Akins DATE: February 09, 2018 TIME: 9:42 AM PAGER/CONTACT #: [phone] IONIZED CALCIUM Collected: 02/09/2018 Status: F Source: [facility] 3:37 AM HEALTH SYSTEM REPOSITORY TYPE CODE TESTS RESULT OUT OF REFERENCE UNITS RANGE LAB CAION(LOINC 4.43-4.93 mg/dL ) Ionized 4.47 Calcium LAB PHCAI(LOINC 7.320-7.420 ) pH 7.349 LAB CAPH(LOINC) 4.36-4.73 mg/dL Ionized 4.36 Ca,PH7.4 Performed By: #### IONCA #### [place] [address] MDRD GFR Collected: 02/09/2018 Status: F Source: [facility] 3:30 AM HEALTH SYSTEM REPOSITORY TYPE CODE TESTS RESULT OUT OF RANGE REFERENCE UNITS LAB GFRFN(LOINC >60mL/min/1.73m ) 2 eGFR 15.12 Result Comment: If the patient is , multiply the result by 1.210. Performed By: #### GFR #### [place] [address] MAGNESIUM BLOOD Collected: 02/09/2018 Status: F Source: [facility] 3:30 AM HEALTH SYSTEM REPOSITORY TYPE CODE TESTS RESULT OUT OF REFERENCE UNITS RANGE LAB MAG(LOINC) 1.6-2.6 mg/dL Magnesium Blood 2.4 Performed By: #### MAG #### [place] [address] PHOSPHORUS BLOOD Collected: 02/09/2018 Status: F Source: [facility] 3:30 AM HEALTH SYSTEM REPOSITORY TYPE CODE TESTS RESULT OUT OF REFERENCE UNITS RANGE LAB PHOS(LOINC 2.5-4.9 mg/dL ) Phosphorus Blood 3.9 Performed By: #### PHOS #### [facility] [address] [place] [id number] HEMOGRAM/DIFF Collected: 02/09/2018 Status: F Source: [facility] 3:30 AM HEALTH SYSTEM REPOSITORY TYPE CODE [...] 1.38 LAB MONON(LOIN 0.30-0.82 thou/cmm C) Abs. Hunt 0.31 LAB EOSN(LOINC 0.04-0.54 thou/cmm ) Abs. Eosin 0.29 LAB BASON(LOIN 0.01-0.08 thou/cmm C) Abs. Baso 0.01 Performed By: #### CBCD1 #### [facility] [address] [place] [address] PREALBUMIN Collected: 02/09/2018 Status: F Source: [facility] 3:30 AM HEALTH SYSTEM REPOSITORY TYPE CODE TESTS RESULT OUT OF REFERENCE UNITS RANGE LAB PAB(LOINC) 20.0-40.0 mg/dL Low Prealbumin 16.9 Performed By: #### PAB #### [facility] [address] [place] [address] BASIC PANEL Collected: 02/09/2018 Status: F Source: [facility] 3:30 AM HEALTH SYSTEM REPOSITORY TYPE CODE [...] Gap 15 Performed By: #### P8 #### [place] [address] PROGRESS Observed: 02/08/2018 Status: COMPLETED Source: [place] 12:21 PM CLINIC OTHER CAMPUS REPOSITORY HNO ID: [id number] Author: Dorcas Mcdonnell III Service: Infectious Disease [...] 0.84 - 2.85 thou/cmm 1.32 1.08 Abs. Hunt 0.30 - 0.82 thou/cmm 0.29 (L) 0.27 [...] February 08, 2018 TIME: 12:21 PM PAGER: [phone] ABDOMEN 1 VIEW Observed: 02/08/2018 Status: F Source: [facility] 11:39 AM HEALTH SYSTEM REPOSITORY Performed at [facility] APPROVED BY: Matt Geiger MD EXAM TITLE: [...] 1 VIEW Observed: 02/08/2018 Status: F Source: [facility] 11:31 AM HEALTH SYSTEM REPOSITORY Performed at [facility] APPROVED BY: Matt Geiger MD EXAM TITLE: CHEST 1 VIEW DATE: 02/08/2018 09:45 INDICATION: Nausea and vomiting. Tracheostomy. COMPARISON: 02/06/2018 at 04 53. Portable frontal view of the chest shows tracheostomy tube with tip at the level of T3. Overlying clinical research monitor leads. Left-sided PICC line with tip near the cavoatrial junction. Heart size is normal. Thoracic aorta is tortuous. Lungs are clear. No infiltrates or effusions. Intramedullary jerry within the left proximal humerus. Gastrostomy tube in the left upper quadrant. IMPRESSION: No acute findings radiographically. PROGRESS Observed: 02/08/2018 Status: COMPLETED Source: [place] 11:26 AM CLINIC OTHER CAMPUS REPOSITORY HNO ID: [id number] Author: Shen Lorenzo Service: Nephrology Author Type: Physician Type: Progress Notes Filed: 02/08/2018 11:34 AM Note Text: Nephrology Progress Note Following for TERENCE. Pt is on ventilator (trached). Cannot do ROS. Does not follow command. Current Inpatient Medications: Current Facility-Administered Medications Ordered in Epic: [START ON 02/09/2018] pantoprazole 40 mg injection (PROTONIX) 40 mg INTRAVENOUS DAILY (6 AM) Shyam Christiansoni Parenteral Nutrition - Adult INTRAVENOUS ONCE TPN (1800 START) H Edwin Dudley Parenteral Nutrition - Adult INTRAVENOUS ONCE TPN (1800 START) H Edwin Dudley Last Rate: 62.5 mL/hr at 02/07/18 1800 ciprofloxacin 400 mg in D5W 200 mL (CIPRO) 400 mg INTRAVENOUS q 24 HR Dorcas Mcdonnell III Last Rate: 200 mL/hr at 02/07/18 [...] INHALATION BID Dorcas Palafox 0.5 mg at 02/08/18 0732 senna leaf extract 176 mg/5 mL 528 mg 15 mL OROGASTRIC BID Dionicio (Res) Stevens 528 mg at 02/07/18 2221 carboxymethylcellulose sodium 1-2 Drop (CELLUVISC) 1-2 Drop BOTH EYES PRN Venkat Paniagua 2 Drop at 01/26/18 1625 polyvinyl alcohol-povidone 1.4-0.6 % 1 Drop (REFRESH) 1 Drop BOTH EYES QID PRN Paulo (Clinical Applications Manager) Hudock 1 Drop at 01/26/18 1724 heparin [...] 15 mL at 02/08/18 0916 No current Epic-ordered outpatient prescriptions on file. Vitals: BP 107/62 [...] do not hesitate to contact me at [phone] if there is any question or concern. Rosanna Talbert MD (Shen Lorenzo) NURSING PROG Observed: 02/08/2018 Status: COMPLETED Source: [place] 11:21 AM CLINIC OTHER CAMPUS REPOSITORY O ID: [id number] Author: Janell (Rn) MAGALY Fabian Service: Nursing Author Type: Registered Nurse Type: Nursing Progress Note Filed: 02/08/2018 11:25 AM Note Text: Nursing Progress Note Patient Name: Naveen Akins Patient Location: [id number]/[facility]* Daily Note:914: Notified Demi Cee with [facility] that when [...] RN PROGRESS Observed: 02/08/2018 Status: COMPLETED Source: [place] 11:04 AM [facility] OTHER CAMPUS REPOSITORY HNO ID: [id number] Author: Gilbert (Luther Jeronimo Service: Vascular Surgery Author Type: Resident [...] questions or concerns Mon-Fri 6a-5p please page [phone]. After 5pm and on Weekends and Holidays, please page [phone] if in ICU or [phone] if on RNF. SERVICE DATE: 02/08/2018 Subjective [...] 28.43 kg/m? O2 Therapy: Ventilator IANDO: Date 02/07/18 07 - 02/08/18 0659 02/08/18 07 - 02/09/18 0659 Shift 2529-9705 1398-8897 6867-9176 24 Hour Total 6446-8756 7018-6404 0143-7755 24 Hour Total I N T A K E IV 200 200 Cipro IV 200 200 TPN/PPN 967 740 1159 TPN 033 172 7979 Irrigants 120 180 300 Irrigant/Flush Amount In (GI Feed/Drain 01/27/18 Assessment Gastrostomy) 120 180 300 Gastric Tube 280 345 625 Tube Feed Intake (I/O) (GI Feed/Drain 01/27/18 Assessment Gastrostomy) 280 345 625 Shift Total 1350 1270 2620 O U T P U T Urine 500 585 800 3217 280 280 Tube Output ( Condom Catheter 02/02/18 2200) 500 483 659 3885 280 280 Tubes 350 400 750 Drain/Tube Output (Drain/Tube 01/19/18 1015 Midline Abdomen) 0 0 0 Drain/Tube Output (Drain/Tube 02/02/18 0300 Fecal Management System Rectum) 350 400 750 Shift Total 850 098 672 1080 280 280 Weight (kg) 87.5 87.5 87.5 [...] Noted - Ruptured abdominal aortic aneurysm (AAA) ([facility]) 01/12/2018 - TERENCE (acute kidney injury) ([facility]) 01/30/2018 - Ileus ([facility]) 01/30/2018 - Acute liver failure without hepatic coma 01/30/2018 - Obesity, Class I, BMI 30-34.9 01/16/2018 - Anoxic encephalopathy ([facility]) 01/13/2018 - DIC (disseminated intravascular coagulation) ([facility]) 01/12/2018 - Acute respiratory failure ([facility]) 01/12/2018 - Cardiac arrest ([facility]) 01/12/2018 - AAA (abdominal aortic aneurysm, ruptured) ([facility]) 01/12/2018 Overview Note: Added automatically from request for surgery [id number] 77 year old male with Ruptured AAA [...] February 08, 2018 TIME: 11:09 AM Pager: [phone] VENOUS BLOOD GAS Collected: 02/08/2018 Status: F Source: [facility] 10:45 AM HEALTH SYSTEM REPOSITORY TYPE CODE [...] Venous 85.4 Performed By: #### VBG #### [place] [address] LACTIC ACID Collected: 02/08/2018 Status: F Source: [facility] 10:45 HEALTH SYSTEM REPOSITORY TYPE CODE TESTS RESULT OUT OF REFERENCE UNITS RANGE LAB LAC(LOINC) 0.4-2.0 mEq/L Lactic Acid 1.4 Performed By: #### LAC #### [place] [address] PROGRESS Observed: 02/08/2018 Status: COMPLETED Source: [place] 9:53 AM CLINIC OTHER CAMPUS REPOSITORY O ID: [id number] Author: Shyam Degroot Service: Pulmonary Disease Author [...] Neurologic: Comatose Respiratory/Nursing Documentation: O2 Therapy: Ventilator (02/08/18699) Invasive Ventilator Mode: Continuous Mandatory Ventilation (02/08/18699) Set Ventilator Respiratory Rate (BPM): 16 (02/08/18699) Total Respiratory Rate (BPM): 31 (02/08/18699) Tidal [...] labs and imaging results. LABS: Recent Labs 02/08/18 0645 02/07/18 0902/06/18 0556 WBC 7.01 8.47 < [...] this interval not displayed. ABG: Invalid input(s): [id number] Assessment/Plan IMPRESSION: Critical Care Documentation: The patient [...] IONIZED CALCIUM Collected: 02/08/2018 Status: F Source: [facility] 6:45 AM HEALTH SYSTEM REPOSITORY TYPE CODE TESTS RESULT OUT OF REFERENCE UNITS RANGE LAB CAION(LOINC 4.43-4.93 mg/dL ) Low Ionized 4.28 Calcium LAB PHCAI(LOINC 7.320-7.420 ) pH 7.353 LAB CAPH(LOINC) 4.36-4.73 mg/dL Low Ionized 4.18 Ca,PH7.4 Performed By: #### IONCA #### [place] [address] BASIC PANEL Collected: 02/08/2018 Status: F Source: [facility] 6:45 AM HEALTH SYSTEM REPOSITORY TYPE CODE [...] Gap 17 Performed By: #### P8 #### [facility] [address] [place] [address] HEMOGRAM/DIFF Collected: 02/08/2018 Status: F Source: [facility] 6:45 AM HEALTH SYSTEM REPOSITORY TYPE CODE [...] LAB MONON(LOIN 0.30-0.82 thou/cmm C) Low Abs. Hunt 0.27 LAB EOSN(LOINC 0.04-0.54 thou/cmm ) Abs. Eosin 0.30 LAB BASON(LOIN 0.01-0.08 thou/cmm C) Abs. Baso 0.01 Result Comment: Smear scanned; tech agrees with automated differential Performed By: #### CBCD1 #### [facility] [address] [address] ALLIED HEALTH Observed: 02/08/2018 Status: COMPLETED Source: [place] 1:00 AM [facility] OTHER [place] REPOSITORY HNO ID: [id number] Author: Chaplain Robbins (Chaplain) Service: Spiritual Care Author Type: Crack Off Person Type: Allied Health Filed: 02/08/2018 10:49 AM Note Text: SPIRITUALCARE Spiritual Care Visit- Brief Note Name: Naveen Akins Date: February 08, 2018 Notes: Family in denial. Waiting for a miracle. Crack Off Person Signature: Chaplain Rosendo To contact the Spiritual Care Department: Please call [phone] or Page the On-Call Crack Off Person at pager [phone] Thank you for the opportunity to be of service. This is an electronically created document. IF PRINTED, PLEASE DO NOT REMOVE FROM THE CHART OR MODIFY PRINTED COPY. PROCEDURE Observed: 02/08/2018 Status: COMPLETED Source: [place] 12:43 AM [facility] OTHER CAMPUS REPOSITORY HNO ID: [id number] Author: Dionicio Stevens Service: Vascular Surgery Author Type: Resident Type: Procedures Filed: 02/08/2018 12:54 AM Note Text: Attestation signed by Araceli Reynaga at 02/08/2018 9:16 AM Araceli Reynaga MD BEDSIDE PROCEDURE NOTE PROCEDURE DATE: February 08, 2018 PROCEDURE START TIME: 00:20 PRIMARY PROCEDURALIST: Dionicio Stevens MD REGISTERED ROUTE ASSOCIATE(S): Patient's Nurse and RT at bedside assisting [...] [id number] PROGRESS Observed: 02/07/2018 Status: COMPLETED Source: [place] 4:39 PM CLINIC OTHER CAMPUS REPOSITORY [facility] ID: [id number] Author: Paulo Lovelace (Cns) Service: Critical Care [...] (02/07/181599) Set Ventilator Respiratory Rate (BPM): 16 (02/07/181599) Total Respiratory Rate (BPM): 38 (02/07/181599) Tidal Volume Set (mL): 500 (02/07/181599) Exhaled Tidal Volume (mL): 676 (02/07/181599) Minute Volume (L): 18.9 (02/07/181599) Peak Inspiratory Pressure (cm H2O): 24 (02/07/181599) PEEP/CPAP (cm H2O): 5 (02/07/181599) HEMODYNAMIC DATA: [...] this interval not displayed. ABG: Invalid input(s): [id number] Assessment/Plan IMPRESSION: Critical Care Documentation: The patient has the following organ/system impairment(s): Respiratory failure (with Hypoxemia) 1.Acute hypoxic respiratory failure/ARDS/Bilat pleuaral effusions-remains intubated on 40% FIO2-periodic Seth Smith respirations 2. Ruptured AAA ?Sp repair-Wound closed vac in place 3.SP cardiac arrest 4.Shock-Levophed support is off 5. Pt is nonresponsive-even to noxious stimuli-Encephalopathy 6.Thrombocytopenia improving-platelet 286,000 7.Nutritional teogzwj-PLH-mica feedings increased to 30 ml/hr 8.Sinus tachycardia-SVT resolved-frequent PACs this AM 9.TERENCE on GZC-etorfvbbs-eyawvpovm urine now 10. Fentanyl drip is off [...] 40 minutes excluding procedures. SIGNATURE: Paulo Lovelace APRN.CHAIR INSPECTOR PATIENT NAME: Naveen Akins DATE: February 07, 2018 TIME: 4:39 PM ALLIED HEALTH Observed: 02/07/2018 Status: COMPLETED Source: [place] 3:45 PM CLINIC OTHER CAMPUS REPOSITORY HNO ID: [id number] Author: Chaplain Serna (Chaplain) Service: Spiritual Care Author Type: Crack Off Person Type: Allied Health Filed: 02/07/2018 4:23 PM Note Text: SPIRITUALCARE Spiritual Care Visit- Brief Note Name: Naveen Akins Date: February 07, 2018 Notes: Follow-up visit w/fam in 3d fl WR--they continue to hold on to hope. A little later, silent prayer outside pt's rm (pat pulled--he appeared to be busy w/staff) Will continue to follow as needed. Crack Off Person Signature: Chaplain Daphne To contact the [facility] Care Department: Please call [phone] or Page the On-Call Crack Off Person at pager [phone] Thank you for the opportunity to be of service. This is an electronically created document. IF PRINTED, PLEASE DO NOT REMOVE FROM THE CHART OR MODIFY PRINTED COPY. CONSULT Observed: 02/07/2018 Status: COMPLETED Source: [place] 2:32 PM CLINIC OTHER CAMPUS REPOSITORY O ID: [id number] Author: Dorcas Mcdonnell III Service: Infectious Disease [...] Diagnosis Date - DIC (disseminated intravascular coagulation) ([facility]) 01/12/2018 PAST SURGICAL HISTORY Procedure Laterality [...] February 07, 2018 TIME: 2:32 PM PAGER: [phone] PROGRESS Observed: 02/07/2018 Status: COMPLETED Source: [place] 2:17 PM CLINIC OTHER CAMPUS REPOSITORY HNO ID: [id number] Author: [facility] FLAVIA Mcmahan Service: Nursing Author Type: Health Sock Liner Type: Progress Notes Filed: 02/07/2018 2:17 PM Note Text: ID Consult to Dr. Mcdonnell: verified on treatment team February 07, 2018 2:17 PM EKG (AK,AV,EU,FV,HL,CYNTHIA,MM,SP) Observed: Status: F Source: [place] 02/07/2018 1:51 PM CLINIC OTHER CAMPUS REPOSITORY NAME : NAVEEN AKINS PID : [id number] : 1940 Gender : Male Race : ORD : [id number] Procedure Date : Feb 07 2018 13:51 Edit Date : Feb 08 2018 15:21 Diagnosis:NORMAL SINUS RHYTHM PREMATURE ATRIAL COMPLEXES TREMOR ARTIFACT ST & T WAVE ABNORMALITY, CONSIDER ANTERIOR ISCHEMIA ABNORMAL ECG NONSPECIFIC T WAVE ABNORMALITY, WORSE IN LATERAL LEADS Confirmed by MD Jimmie, Wagner ([id number]) on 02/08/2018 3:21:48 PM Ventricular Rate : 105 BPM Atrial Rate : 105 BPM P-R Interval : 114 ms QRS Duration : 66 ms Q-T Interval : 350 ms QTC Calculation(Bezet) : 462 ms P Dobson : -32 degrees R Dobson : 34 degrees T Dobson : 73 degrees Test Reason : Check QT Location : 3 : ICC 3233 Overread By : MD Samuel Sergey Editted By : MD Samuel Sergey Referred By : PAULO LOVELACE Acquired by : Conor GREENE CONSULT PROG Observed: 02/07/2018 Status: COMPLETED Source: [place] 12:56 PM CLINIC OTHER CAMPUS REPOSITORY HNO ID: [id number] Author: Elder Yu) Kalee Service: Critical Care [...] this interval not displayed. ABG: Invalid input(s): [id number] Assessment/Plan IMPRESSION: Critical Care Documentation: The patient has the following organ/system impairment(s): Encephalopathy and Respiratory failure (Acute) 77 year old male with PMH of AAA who was transferred to [facility] in shock 2/2 ruptured AAA c/b [...] CASE MANAGEM Observed: 02/07/2018 Status: COMPLETED Source: [place] 12:49 PM [facility] REPOSITORY HNO ID: [id number] Author: Mel TylerRn) MAGALY Hickey Service: Care Management Author Type: Registered Nurse Type: Care Mgt Progress Note Filed: 02/07/2018 12:50 PM Note Text: CARE MANAGEMENT PROGRESS NOTE SERVICE DATE: 02/07/2018 SERVICE TIME: LOS: 26 days Spoke with Jenna cabrera/ [facility]. Update with family provided. CM to follow for transitional needs. SIGNATURE: Mel Hickey RN PATIENT NAME: Naveen Akins DATE: February 07, 2018 TIME: 12:49 PM PAGER/CONTACT #: CASE MANAGEM Observed: 02/07/2018 Status: COMPLETED Source: [place] 12:35 PM [facility] REPOSITORY HNO ID: [id number] Author: Mel Garcia) MAGALY Hickey Service: Care Management Author Type: Registered Nurse Type: Care Mgt Progress Note Filed: 02/07/2018 12:47 PM Note Text: CARE MANAGEMENT PROGRESS NOTE SERVICE DATE: 02/07/2018 SERVICE TIME: 1235 LOS: 26 days Chart reviewed. Spoke with Paramjit from [facility]. Able to accept patient at [facility] once family makes decision. Had long discussion with Shelly and daughter Ariadna. Family states they wish to continue with current code status Full code. States they are interested kari [facility] but have not toured facility yet. Both aware of Bed availability at [facility] but have not confirmed that as 1st [...] #: NUTRITION Observed: 02/07/2018 Status: COMPLETED Source: [place] 12:33 PM CLINIC OTHER CAMPUS REPOSITORY HNO ID: [id number] Author: Viry Mosher RD Service: NST-Nutrition Support [...] units in TPN bag ? Goal for [facility] Renal is 42 cc/hr providing 2000 calories [...] PREALB 18.8* Viry Mosher RD, LD Pager: [phone] Increments: 3 PROGRESS Observed: 02/07/2018 Status: COMPLETED Source: [place] 11:18 AM CLINIC OTHER CAMPUS REPOSITORY HNO ID: [id number] Author: Calli (Rn) MAGALY Bonilla Service: Wound/Ostomy Author Type: Registered Nurse Type: Progress Notes Filed: 02/07/2018 11:22 AM Note Text: WOUND CARE NURSE PROGRESS NOTE SERVICE DATE: 02/07/2018 SERVICE TIME: 1040 REASON FOR VISIT: Wound TIME SPENT (minutes): 30 Documentation from Wound Expert can be found in scanned documents. Patient seen by Shiloh Magana LITERACY TUTOR and siva RN. Wound vac dressing changed [...] February 07, 2018 TIME: 11:19 AM CONTACT#: [id number] RBC PRODUCTS Collected: 02/07/2018 Status: F Source: [facility] 10:54 AM HEALTH SYSTEM REPOSITORY TYPE CODE TESTS RESULT OUT OF REFERENCE UNITS RANGE LAB UNIT1(LOINC ) Xmatch Unit 1 see below Result Comment: Compatible Performed By: #### RBCPS #### [place] [address] TYPE AND SCREEN Collected: 02/07/2018 Status: F Source: [facility] 10:30 AM HEALTH SYSTEM REPOSITORY TYPE CODE TESTS RESULT OUT OF REFERENCE UNITS RANGE LAB ABO(LOINC) O ABO Group LAB LABOR TRAINER(LOINC ) RH Type Positive LAB ABSCR(LOIN C) Antibody NEGATIVE Screen LAB BBCMT(LOIN C) Comment See Below Result Comment: Screen &/or Xmatch expires in 3 days at 12 midnight. Redraw patient at that time. Performed By: #### T&S #### [facility] [address] [place], [place] [address] RBC PRODUCTS Collected: 02/07/2018 Status: F Source: [facility] 10:30 AM HEALTH SYSTEM REPOSITORY TYPE CODE TESTS RESULT OUT OF REFERENCE UNITS RANGE LAB UNIT1(LOINC ) Xmatch Unit 1 see below Result Comment: Compatible Performed By: #### RBCPS #### [facility] [address] [place], [place] [address] PROGRESS Observed: 02/07/2018 Status: COMPLETED Source: [place] 10:13 AM CLINIC OTHER CAMPUS REPOSITORY O ID: [id number] Author: Shen Lorenzo Service: Nephrology Author Type: [...] NaCl 20 mL 20 mL INTRAVENOUS PRN Lroa Soliz ipratropium-albuterol 3 mL nebulizer solution (DUONEB) [...] 1 Drop BOTH EYES QID PRN Paulo (Clinical Applications Manager) Hudock 1 Drop at 01/26/18 1724 heparin [...] do not hesitate to contact me at [phone] if there is any question or concern. Rosanna Talbert MD (Shen Lorenzo) PROGRESS Observed: 02/07/2018 Status: COMPLETED Source: [place] 10:02 AM [facility] REPOSITORY O ID: [id number] Author: Gilbert (Edenilson) Kandace Service: Vascular Surgery Author Type: Resident Type: [...] questions or concerns Mon-Fri 6a-5p please page [phone]. After 5pm and on Weekends and Holidays, please page [phone] if in ICU or [phone] if on RNF. SERVICE DATE: 02/07/2018 Subjective [...] 29.34 kg/m? O2 Therapy: Ventilator IANDO: Date 02/06/18699 - 02/07/18 0659 02/07/18 07 - 02/08/18 0659 Shift 5525-8054 9922-1160 5626-6645 24 Hour Total 1635-4116 9622-7943 6805-0712 24 Hour Total I N T A K E IV 58 58 NS 0.9% 58 58 TPN/PPN 751 751 TPN 751 751 Irrigants 120 120 Irrigant/Flush Amount In (GI Feed/Drain 01/27/18 Assessment Gastrostomy) 120 120 Gastric Tube 160 236 396 Tube Feed Intake (I/O) (GI Feed/Drain 01/27/18 Assessment Gastrostomy) 160 236 396 Shift Total 7072 026 9095 O U T P U T Urine [...] Noted - Ruptured abdominal aortic aneurysm (AAA) ([facility]) 01/12/2018 - TERENCE (acute kidney injury) ([facility]) 01/30/2018 - Ileus ([facility]) 01/30/2018 - Acute liver failure without hepatic coma 01/30/2018 - Obesity, Class I, BMI 30-34.9 01/16/2018 - Anoxic encephalopathy ([facility]) 01/13/2018 - DIC (disseminated intravascular coagulation) ([facility]) 01/12/2018 - Acute respiratory failure ([facility]) 01/12/2018 - Cardiac arrest ([facility]) 01/12/2018 - AAA (abdominal aortic aneurysm, ruptured) ([facility]) 01/12/2018 Overview Note: Added automatically from request for surgery [id number] 77 year old male with Ruptured AAA [...] today 02/07 - good UOP for past 24, currently no plans for restarting dialysis - [...] February 07, 2018 TIME: 10:06 AM Pager: [phone] IONIZED CALCIUM Collected: 02/07/2018 Status: F Source: [facility] 9:00 HEALTH SYSTEM REPOSITORY TYPE CODE TESTS RESULT OUT OF REFERENCE UNITS RANGE LAB CAION(LOINC 4.43-4.93 mg/dL ) Low Ionized 3.99 Calcium LAB PHCAI(LOINC 7.320-7.420 ) pH High 7.441 LAB CAPH(LOINC) 4.36-4.73 mg/dL Low Ionized 4.07 Ca,PH7.4 Performed By: #### IONCA #### [facility] [address] [address] HEMOGRAM/DIFF Collected: 02/07/2018 Status: F Source: [facility] 9:00 AM HEALTH SYSTEM REPOSITORY TYPE CODE [...] LAB MONON(LOIN 0.30-0.82 thou/cmm C) Low Abs. Hunt 0.29 LAB EOSN(LOINC 0.04-0.54 thou/cmm ) Abs. Eosin 0.23 LAB BASON(LOIN 0.01-0.08 thou/cmm C) Abs. Baso 0.01 Performed By: #### CBCD1 #### [place] [address] MAGNESIUM BLOOD Collected: 02/07/2018 Status: F Source: [facility] 9:00 AM HEALTH SYSTEM REPOSITORY TYPE CODE TESTS RESULT OUT OF REFERENCE UNITS RANGE LAB MAG(LOINC) 1.6-2.6 mg/dL Magnesium Blood 2.3 Performed By: #### MAG #### [place] [address] PHOSPHORUS BLOOD Collected: 02/07/2018 Status: F Source: [facility] 9:00 AM HEALTH SYSTEM REPOSITORY TYPE CODE TESTS RESULT OUT OF REFERENCE UNITS RANGE LAB PHOS(LOINC 2.5-4.9 mg/dL ) High Phosphorus Blood 5.8 Performed By: #### PHOS #### [address] [place] [address] BASIC PANEL Collected: 02/07/2018 Status: F Source: [facility] 9:00 AM HEALTH SYSTEM REPOSITORY TYPE CODE [...] Gap 17 Performed By: #### P8 #### [place] [id number] HEMOGRAM/DIFF Collected: 02/07/2018 Status: F Source: [facility] 6:20 AM HEALTH SYSTEM REPOSITORY TYPE CODE [...] 02/07/18. LAB MONON(LOINC) 0.30-0.82 thou/cmm see Abs. Hunt below Result Comment: DISREGARD RESULTS- SAMPLE INTEGRITY [...] on 02/07/18. Performed By: #### CBCD1 #### [place] [id number] IONIZED CALCIUM Collected: 02/07/2018 Status: F Source: [facility] 6:20 AM HEALTH SYSTEM REPOSITORY TYPE CODE [...] on 02/07/18. Performed By: #### IONCA #### [place] [address] ALLIED HEALTH Observed: 02/06/2018 Status: COMPLETED Source: [place] 9:33 PM CLINIC OTHER CAMPUS REPOSITORY HNO ID: [id number] Author: Chaplain Perales (Chaplain) Service: Spiritual Care Author Type: Crack Off Person Type: Allied Health Filed: 02/06/2018 9:37 PM Note Text: SPIRITUALCARE Spiritual Care Visit- Brief Note Name: Naveen Akins Date: February 06, 2018 Notes: SPIRITUALCARE Spiritual Care Visit- Brief Note Name: Naveen Akins Date: February 06, 2018 Notes: Met pt's janice fam again in 3rd wtg. Chatted awhile and asked if getting enough food/rest. Fam said they all are hanging in there and praying for a miracle for dad. I later went to pt's room and prayed over pt.at 7:55pm Crack Off Person Signature: Chaplain Diaz To contact the Spiritual Care Department: Please call [phone] or Page the On-Call Crack Off Person at pager [phone] Thank you for the opportunity to be of service. This is an electronically created document. IF PRINTED, PLEASE DO NOT REMOVE FROM THE CHART OR MODIFY PRINTED COPY. Crack Off Person Signature: Chaplain Diaz To contact the [facility] Care Department: Please call [phone] or Page the On-Call Crack Off Person at pager [phone] Thank you for the opportunity to be of service. This is an electronically created document. IF PRINTED, PLEASE DO NOT REMOVE FROM THE CHART OR MODIFY PRINTED COPY. PROGRESS Observed: 02/06/2018 Status: COMPLETED Source: [place] 3:16 PM CLINIC OTHER CAMPUS REPOSITORY O ID: [id number] Author: Renate Handy Service: Nephrology Author Type: [...] 1 Drop BOTH EYES QID PRN Paulo (Clinical Applications Manager) Hudock 1 Drop at 01/26/18 1724 heparin [...] DO PROGRESS Observed: 02/06/2018 Status: COMPLETED Source: [place] 3:11 PM CLINIC OTHER CAMPUS REPOSITORY [facility] ID: [id number] Author: Paulo Dila) Radu Service: Critical Care Author Type: Nurse [...] ALT 92* MG 2.1 ABG: Invalid input(s): [id number] Assessment/Plan IMPRESSION: 1.Acute hypoxic respiratory failure/ARDS/Bilat pleuaral [...] 40 minutes excluding procedures. SIGNATURE: Paulo Lovelace APRN.CHAIR INSPECTOR PATIENT NAME: Naveen Akins DATE: February 06, 2018 TIME: 3:12 PM PROGRESS Observed: 02/06/2018 Status: COMPLETED Source: [place] 9:36 AM CLINIC OTHER CAMPUS REPOSITORY HNO ID: [id number] Author: Shyam Degroot Service: Critical Care Author [...] Neurologic: Comatose Respiratory/Nursing Documentation: O2 Therapy: Ventilator (02/06/18799) Invasive Ventilator Mode: Continuous Mandatory Ventilation (02/06/18750) [...] ALT 92* MG 2.1 ABG: Invalid input(s): [id number] Assessment/Plan IMPRESSION: Critical Care Documentation: The patient [...] AM PROGRESS Observed: 02/06/2018 Status: COMPLETED Source: [place] 8:27 AM [facility] REPOSITORY O ID: [id number] Author: Braxton Sloan MD Service: Vascular Surgery [...] questions or concerns Mon-Fri 6a-5p please page [phone]. After 5pm and on Weekends and Holidays, please page [phone] if in ICU or [phone] if on RNF. SERVICE DATE: 02/06/2018 Subjective [...] 29.34 kg/m? O2 Therapy: Ventilator IANDO: Date 02/05/18 07 - 02/06/18 0659 02/06/18699 - 02/07/18 0659 Shift 9056-4935 4490-9553 9197-3608 24 Hour Total 6729-9765 4195-9502 8027-3447 24 Hour Total I N T A K E TPN/PPN 778 778 TPN 778 778 Irrigants 60 80 140 Irrigant/Flush Amount In (GI Feed/Drain 01/27/18 Assessment Gastrostomy) 60 80 140 Gastric Tube 119 119 238 Tube Feed Intake (I/O) (GI Feed/Drain 01/27/18 Assessment Gastrostomy) 119 119 238 Shift Total 775 920 0909 O U T P U T Urine 711 147 9342 Urine Incontinence/Not Saved 1 x 1 x Tube Output ( Condom Catheter 02/02/18 2200) 447 578 8754 Tubes 0 0 0 0 Drain/Tube Output (Drain/Tube 01/19/18 1015 Midline Abdomen) 0 0 0 0 Stool 300 50 350 Liquid BM (mL) 300 50 350 Shift Total 0 452 191 9521 0 0 Weight (kg) 87.5 87.5 87.5 [...] Note: Added automatically from request for surgery [id number] 77 year old male with Ruptured AAA [...] February 06, 2018 TIME: 8:27 AM Pager: [phone] PREALBUMIN Collected: 02/06/2018 Status: F Source: [facility] 5:56 AM HEALTH SYSTEM REPOSITORY TYPE CODE TESTS RESULT OUT OF REFERENCE UNITS RANGE LAB PAB(LOINC) 20.0-40.0 mg/dL Low Prealbumin 18.8 Performed By: #### PAB #### [facility] [address] [place], [place] [address] IONIZED CALCIUM Collected: 02/06/2018 Status: F Source: [facility] 5:56 HEALTH SYSTEM REPOSITORY TYPE CODE TESTS RESULT OUT OF REFERENCE UNITS RANGE LAB CAION(LOINC 4.43-4.93 mg/dL ) Low Ionized 3.95 Calcium LAB PHCAI(LOINC 7.320-7.420 ) pH 7.387 LAB CAPH(LOINC) 4.36-4.73 mg/dL Low Ionized 3.92 Ca,PH7.4 Performed By: #### IONCA #### [facility] [address] [id number] HEMOGRAM/DIFF Collected: 02/06/2018 Status: F Source: [facility] 5:[address] [place] [address] SYSTEM REPOSITORY TYPE CODE TESTS RESULT OUT [...] 1.28 LAB MONON(LOIN 0.30-0.82 thou/cmm C) Abs. Hunt 0.30 LAB EOSN(LOINC 0.04-0.54 thou/cmm ) Abs. Eosin 0.26 LAB BASON(LOIN 0.01-0.08 thou/cmm C) Abs. Baso 0.01 Performed By: #### CBCD1 #### [place] [address] BASIC PANEL Collected: 02/06/2018 Status: F Source: [facility] 5:56 AM HEALTH SYSTEM REPOSITORY TYPE CODE [...] Gap 15 Performed By: #### P8 #### [place] [address] HEPATIC PANEL Collected: 02/06/2018 Status: F Source: [facility] 5:56 AM HEALTH SYSTEM REPOSITORY TYPE CODE [...] Bilirubin 2.44 Performed By: #### HEPAP #### [facility] [address] [place] [address] TRIGLYCERIDE BLOOD Collected: 02/06/2018 Status: F Source: [facility] 5:56 AM HEALTH SYSTEM REPOSITORY TYPE CODE TESTS RESULT OUT OF REFERENCE UNITS RANGE LAB TRIG(LOINC 0-149 mg/dL ) Triglyceride High Blood 266 Result Comment: < 200 Desirable Result invalid if not a fasting specimen. Performed By: #### TRIG #### [facility] [address] [place] [address] CHEST 1 VIEW Observed: 02/06/2018 Status: F Source: [facility] 4:59 AM HEALTH SYSTEM REPOSITORY Performed at [facility] APPROVED BY: KRISTIE KHAN MD EXAM TITLE: [...] effusion. PROGRESS Observed: 02/05/2018 Status: COMPLETED Source: [place] 2:19 PM CLINIC OTHER CAMPUS REPOSITORY HNO ID: [id number] Author: Renate Handy Service: Nephrology Author Type: [...] 8 H Lora Soliz 15 mg at 02/05/18 1107 pantoprazole 40 [...] BID Dorcas Mckeon Decoy 0.5 mg at 02/05/18 0755 senna leaf extract 176 mg/5 mL 528 mg 15 mL OROGASTRIC BID Dionicio (Res) Stevens 528 mg at 02/04/18 2113 carboxymethylcellulose sodium 1-2 Drop (CELLUVISC) 1-2 Drop BOTH EYES PRN Venkat Paniagua 2 Drop at 01/26/18 1625 polyvinyl alcohol-povidone 1.4-0.6 % 1 Drop (REFRESH) 1 Drop BOTH EYES QID PRN Paulo (Clinical Applications Manager) Hudock 1 Drop at 01/26/18 1724 heparin [...] H Elder Yu) Kalee 15 mL at 02/05/18 0900 No current Epic-ordered outpatient prescriptions on file. Vitals: BP 117/63 [...] DO PROGRESS Observed: 02/05/2018 Status: COMPLETED Source: [place] 1:25 PM CLINIC OTHER CAMPUS REPOSITORY O ID: [id number] Author: Braxton (Luther Sloan MD Service: Vascular Surgery Author Type: [...] questions or concerns Mon-Fri 6a-5p please page [phone]. After 5pm and on Weekends and Holidays, please page [phone] if in ICU or [phone] if on RNF. SERVICE DATE: 02/05/2018 Subjective [...] 29.34 kg/m? O2 Therapy: Ventilator IANDO: Date 02/04/18 07 - 02/05/18 0659 02/05/18 07 - 02/06/18 0659 Shift 7307-6653 9955-0584 1514-6838 24 Hour Total 8045-7560 5092-0981 6991-9369 24 Hour Total I N T A K E IV 338 24 362 NS 0.9% 38 24 62 Vancomycin IV 200 200 Meropenem (Merrem) 100 100 TPN/PPN 474 719 6517 TPN 311 631 2395 Irrigants 80 30 110 Irrigant/Flush Amount In (GI Feed/Drain 01/27/18 Assessment Gastrostomy) 80 30 110 Gastric Tube 76 80 156 Tube Feed Intake (I/O) (GI Feed/Drain 01/27/18 Assessment Gastrostomy) 76 80 156 Shift Total 7074 004 5020 O U T P U T Urine 280 828 113 2153 Tube Output ( Condom Catheter 02/02/18 2200) 280 691 039 4881 Drains 0 0 Negative Pressure: Output (mL) (Negative Pressure Wound Therapy 01/12/18 0749 Abdomen) 0 0 Tubes 60 0 60 0 0 Drain/Tube Output (Drain/Tube 01/19/18 1015 Midline Abdomen) 60 0 60 0 0 # of BMs Stool Incontinence 1 x 1 x 2 x Number of BMs 2 x 2 x Stool 300 300 Liquid BM (mL) 300 300 Shift Total 280 024 314 1997 0 0 Weight (kg) 82.8 82.8 87.5 [...] respiratory failure (HCC) 01/12/2018 - Cardiac arrest ([facility]) 01/12/2018 - AAA (abdominal aortic aneurysm, ruptured) ([facility]) 01/12/2018 Overview Note: Added automatically from request for surgery [id number] 77 year old male with Ruptured AAA [...] February 05, 2018 TIME: 1:25 PM Pager: [phone] PROGRESS Observed: 02/05/2018 Status: COMPLETED Source: [place] 8:54 AM CLINIC OTHER CAMPUS REPOSITORY HNO ID: [id number] Author: Lora Soliz Service: Critical Care Author [...] CA 7.0* MG 2.0 ABG: Invalid input(s): [id number] Assessment/Plan PROBLEMS: Patient Active Hospital Problem List: Ruptured abdominal aortic aneurysm (AAA) ([facility]) (01/12/2018) DIC (disseminated intravascular coagulation) ([facility]) (01/12/2018) Acute respiratory failure ([facility]) (01/12/2018) Cardiac arrest ([facility]) (01/12/2018) Anoxic encephalopathy ([facility]) (01/13/2018) AAA (abdominal aortic aneurysm, ruptured) ([facility]) (01/12/2018) Obesity, Class I, BMI 30-34.9 (01/16/2018) TERENCE (acute kidney injury) ([facility]) (01/30/2018) Ileus (HCC) (01/30/2018) Acute liver failure [...] OUTLOOK, no better to me TERENCE on FORENSIC CHEMIST, controlled azotemia but higher off cvvhd, resume?HD [...] ?CheyneStokes periodic breathing noted on psv?due to call manager catastrophe; 2. Tpn at 1700kcal /day, low [...] 02/03 and 02/04 pending blood cx 6. Clinical Applications Manager a concern, poor outlook 7. Dcd?betty ?>?10 days, off norepi 8. PICC done ,?new tunneled HD cath Tuesday pre LTAC 9. Wound care?, vaccum 10. REC: ?DNR, family been resistent , I talked to son yesterday who acknowledged poor status and coma but is very spiritual.?Daughters aware of no call manager recovery, discussed today 11. calcium? 12. epogen product with CRF 13. CXR IN AM 14. LTAC next week SIGNATURE: Lora Soliz MD PATIENT NAME: Naveen Akins DATE: February 05, 2018 TIME: 8:54 AM IONIZED CALCIUM Collected: 02/05/2018 Status: F Source: [facility] 5:43 AM HEALTH SYSTEM REPOSITORY TYPE CODE TESTS RESULT OUT OF REFERENCE UNITS RANGE LAB CAION(LOINC 4.43-4.93 mg/dL ) Low Ionized 3.92 Calcium LAB PHCAI(LOINC 7.320-7.420 ) pH High 7.430 LAB CAPH(LOINC) 4.36-4.73 mg/dL Low Ionized 3.98 Ca,PH7.4 Performed By: #### IONCA #### [facility] [address] [address] HEMOGRAM/DIFF Collected: 02/05/2018 Status: F Source: [facility] 5:43 AM HEALTH SYSTEM REPOSITORY TYPE CODE [...] 1.13 LAB MONON(LOIN 0.30-0.82 thou/cmm C) Abs. Hunt 0.30 LAB EOSN(LOINC 0.04-0.54 thou/cmm ) Abs. Eosin 0.27 LAB BASON(LOIN 0.01-0.08 thou/cmm C) Abs. Baso 0.01 Result Comment: Smear scanned; tech agrees with automated differential Performed By: #### CBCD1 #### [place] [address] VANCOMYCIN,TROUGH Collected: Status: F Source: [place] 02/05/2018 5:43 AM [facility] REPOSITORY TYPE CODE TESTS RESULT OUT OF RANGE REFERENCE UNITS LAB VANCT(LOINC 10.0-20.0 mg/L ) 19.9 Vancomycin,T rough Performed By: #### VANCT #### [place] [address] BASIC PANEL Collected: 02/05/2018 Status: F Source: [facility] 5:43 AM [facility] REPOSITORY TYPE CODE TESTS RESULT [...] Gap 15 Performed By: #### P8 #### [facility] [address] [address] MAGNESIUM BLOOD Collected: 02/05/2018 Status: F Source: [facility] 5:43 AM HEALTH SYSTEM REPOSITORY TYPE CODE TESTS RESULT OUT OF REFERENCE UNITS RANGE LAB MAG(LOINC) 1.6-2.6 mg/dL Magnesium Blood 2.0 Performed By: #### MAG #### [facility] [address] [address] PHOSPHORUS BLOOD Collected: 02/05/2018 Status: F Source: [facility] 5:43 AM HEALTH SYSTEM REPOSITORY TYPE CODE TESTS RESULT OUT OF REFERENCE UNITS RANGE LAB PHOS(LOINC 2.5-4.9 mg/dL ) Phosphorus Blood 4.5 Performed By: #### PHOS #### [facility] [address] [address] PROGRESS Observed: 02/04/2018 Status: COMPLETED Source: [place] 1:35 PM CLINIC OTHER CAMPUS REPOSITORY HNO ID: [id number] Author: Renate Handy Service: Nephrology Author Type: [...] NaCl 20 mL 20 mL INTRAVENOUS PRN oLra Soliz ipratropium-albuterol 3 mL nebulizer solution (DUONEB) [...] 1 Drop BOTH EYES QID PRN Paulo (Clinical Applications Manager) Hudock 1 Drop at 01/26/18 1724 heparin [...] 12 H Elder Granda 15 mL at 02/04/18 0821 No current [...] DO PROGRESS Observed: 02/04/2018 Status: COMPLETED Source: [place] 9:04 AM [facility] OTHER CAMPUS REPOSITORY O ID: [id number] Author: Lora Soliz Service: Critical Care Author [...] days Respiratory/Nursing Documentation: O2 Therapy: Ventilator (02/04/18 07) Invasive Ventilator Mode: Continuous Mandatory Ventilation (02/04/18340) [...] CA 6.7* MG 1.7 ABG: Invalid input(s): [id number] Assessment/Plan PROBLEMS: Patient Active Hospital Problem List: Ruptured abdominal aortic aneurysm (AAA) ([facility]) (01/12/2018) DIC (disseminated intravascular coagulation) ([facility]) (01/12/2018) Acute respiratory failure ([facility]) (01/12/2018) Cardiac arrest ([facility]) (01/12/2018) Anoxic encephalopathy ([facility]) (01/13/2018) AAA (abdominal aortic aneurysm, ruptured) ([facility]) (01/12/2018) Obesity, Class I, BMI 30-34.9 (01/16/2018) TERENCE (acute kidney injury) ([facility]) (01/30/2018) Ileus ([facility]) (01/30/2018) Acute liver failure without hepatic [...] OUTLOOK, no better to me TERENCE on FORENSIC CHEMIST, controlled azotemia but higher off cvvhd, resume?HD [...] vent; ?CheyneStokes periodic breathing on psv?due to call manager; 2. Tpn at 1700kcal /day, low TF; [...] and gave vanco one dose 02/03 6. Clinical Applications Manager a concern, poor outlook 7. Dcd?betty ?>?10 days, off norepi 8. PICC done ,?new tunneled HD cath Tuesday 9. Wound care? 10. REC: DNR, family been resistent per staff , I talked to son yesterday who acknowledged poor status and coma but is very spiritual.?Daughter aware of no call manager recovery, discussed today ?11. calcium 12. epogen [...] AM PROGRESS Observed: 02/04/2018 Status: COMPLETED Source: [place] 6:56 AM [facility] OTHER CAMPUS REPOSITORY O ID: [id number] Author: Braxton (Luther Sloan MD Service: Vascular Surgery Author Type: [...] 27.76 kg/m? O2 Therapy: Ventilator IANDO: Date 02/03/18699 - 02/04/1865802/04/18699 - 02/05/18 0659 Shift 8955-4014 9904-5833 0498-0421 24 Hour Total 7464-5077 2202-0630 7741-8809 24 Hour Total I N T A [...] U T P U T Urine 450 448 176 4583 Tube Output ( Condom Catheter 02/02/18 2200) 450 178 923 7971 Tubes 175 30 205 Drain/Tube Output (Drain/Tube 01/19/18 1015 Midline Abdomen) 125 30 155 Drain/Tube Output (Drain/Tube 02/02/18 0300 Fecal Management System Rectum) 50 50 Output (GI Feed/Drain 01/27/18 Assessment Gastrostomy) 0 0 Dialysis 1400 1400 Dialysis Output (Ultrafiltration) 1400 1400 Shift Total 374 175 4306 2905 Weight (kg) 83.4 83.4 82.8 82.8 [...] Noted - Ruptured abdominal aortic aneurysm (AAA) ([facility]) 01/12/2018 - TERENCE (acute kidney injury) ([facility]) 01/30/2018 - Ileus ([facility]) 01/30/2018 - Acute liver failure without hepatic coma 01/30/2018 - Obesity, Class I, BMI 30-34.9 01/16/2018 - Anoxic encephalopathy ([facility]) 01/13/2018 - DIC (disseminated intravascular coagulation) ([facility]) 01/12/2018 - Acute respiratory failure ([facility]) 01/12/2018 - Cardiac arrest ([facility]) 01/12/2018 - AAA (abdominal aortic aneurysm, ruptured) ([facility]) 01/12/2018 Overview Note: Added automatically from request for surgery [id number] 77 year old male with Ruptured AAA [...] February 04, 2018 TIME: 6:57 AM Pager: [phone] IONIZED CALCIUM Collected: 02/04/2018 Status: F Source: [facility] 5:40 AM HEALTH SYSTEM REPOSITORY TYPE CODE TESTS RESULT OUT OF REFERENCE UNITS RANGE LAB CAION(LOINC 4.43-4.93 mg/dL ) Low Ionized 3.82 Calcium LAB PHCAI(LOINC 7.320-7.420 ) pH High 7.467 LAB CAPH(LOINC) 4.36-4.73 mg/dL Low Ionized 3.96 Ca,PH7.4 Performed By: #### IONCA #### [place] [address] HEMOGRAM/DIFF Collected: 02/04/2018 Status: F Source: [facility] 5:40 AM HEALTH SYSTEM REPOSITORY TYPE CODE [...] 1.11 LAB MONON(LOIN 0.30-0.82 thou/cmm C) Abs. Hunt 0.35 LAB EOSN(LOINC 0.04-0.54 thou/cmm ) Abs. Eosin 0.26 LAB BASON(LOIN 0.01-0.08 thou/cmm C) Abs. Baso 0.02 Performed By: #### CBCD1 #### [place] [address] BASIC PANEL Collected: 02/04/2018 Status: F Source: [facility] 5:40 AM HEALTH SYSTEM REPOSITORY TYPE CODE [...] Gap 13 Performed By: #### P8 #### [place] [address] MAGNESIUM BLOOD Collected: 02/04/2018 Status: F Source: [facility] 5:40 AM HEALTH SYSTEM REPOSITORY TYPE CODE TESTS RESULT OUT OF REFERENCE UNITS RANGE LAB MAG(LOINC) 1.6-2.6 mg/dL Magnesium Blood 1.7 Performed By: #### MAG #### [facility] [address] [address] PHOSPHORUS BLOOD Collected: 02/04/2018 Status: F Source: [facility] 5:40 AM HEALTH SYSTEM REPOSITORY TYPE CODE TESTS RESULT OUT OF REFERENCE UNITS RANGE LAB PHOS(LOINC 2.5-4.9 mg/dL ) Phosphorus Blood 2.6 Performed By: #### PHOS #### [facility] [address] [address] VANCOMYCIN,RANDOM Collected: Status: F Source: [place] 02/04/2018 5:27 AM [facility] REPOSITORY TYPE CODE TESTS RESULT OUT OF RANGE REFERENCE UNITS LAB VANCR(LOINC mg/L ) 11.9 Vancomycin,R andom Result Comment: Trough 10.0-20.0 mg/L Peak 18.0-40.0 mg/L Performed By: #### VANCR #### [place] [address] PROGRESS Observed: 02/03/2018 Status: COMPLETED Source: [place] 11:38 PM [facility] REPOSITORY HNO ID: [id number] Author: Kelsey (Rn) Becki RN Service: Dialysis Author Type: Registered Nurse Type: Progress Notes Filed: 02/03/2018 11:39 PM Note Text: Hemodialysis x 3.5 hours with 4K bath; Tolerated fair. BP 79-120's. Removed = -800; R femoral CVC capped AND locked with heparin per lumen Fill volume. Report given. PROGRESS Observed: 02/03/2018 Status: COMPLETED Source: [place] 1:44 PM [facility] REPOSITORY HNO ID: [id number] Author: Abbi TylerRn) MAGALY Mtz Service: Wound Care Team Author Type: Registered Nurse Type: Progress Notes Filed: 02/03/2018 2:22 PM Note Text: WOUND CARE NURSE PROGRESS NOTE SERVICE DATE: 02/03/2018 SERVICE TIME: 1344 REASON FOR VISIT: Wound TIME SPENT (minutes): 45 Patient seen for wound care follow-up visit for midline abdominal wound vac dressing change. Demi KEON Lovelace, at bedside and visualized wound. Discussed the [...] RN unable to correct call wound care ([phone]) or [facility] (number located on wound vac [...] February 03, 2018 TIME: 2:19 PM CONTACT#: [id number] CT ABDOMEN AND PELVIS Observed: 02/03/2018 Status: F Source: [facility] W/O CONTRAST 1:15 PM HEALTH SYSTEM REPOSITORY Performed at [facility] APPROVED BY: Skip Hickey MD EXAMINATION: CT [...] CASE MANAGEM Observed: 02/03/2018 Status: COMPLETED Source: [place] 11:38 AM CLINIC OTHER CAMPUS REPOSITORY O ID: [id number] Author: Lupe (Rn) MAGALY Cheng Service: Care Management Author Type: Registered Nurse Type: Care Mgt Progress Note Filed: 02/03/2018 11:54 AM Note Text: CARE MANAGEMENT PROGRESS NOTE SERVICE DATE: 02/03/2018 SERVICE TIME: 11:39 AM LOS: 22 days Needs Prior to Discharge: To Be Determined ([facility] able to accept patient) Chart reviewed. Spoke with patient's spouse Shelly and patient's son Manjit in the waiting area. First choice for LTACH at this time is [facility]. Although Shelly states patient's family will be touring all LTACH facilities this weekend. factory process workers Jenna Orozco updated. Will continue to follow clinical course for further DC planning needs. SIGNATURE: Lupe Cheng RN PATIENT NAME: Naveen Akins DATE: February 03, 2018 TIME: 11:39 AM PAGER/CONTACT #: [phone] Observed: 02/03/2018 Status: F Source: [facility] 11:30 AM HEALTH SYSTEM RESPIRATORY REPOSITORY Test performed at [facility] Few normal oropharyngeal john Moderate Gram negative bacilli Few Gram positive cocci Many Polymorphonuclear leukocytes ORGANISM: Ach xylosoxidans ssp xylosoxidans (ID: 1) Moderate ORGANISM: Enterobacter cloacae (ID: 2) Few Performed By: #### C_RES #### [address] [address] PROGRESS Observed: 02/03/2018 Status: COMPLETED Source: [place] 9:25 AM CLINIC OTHER CAMPUS REPOSITORY HNO ID: [id number] Author: Vicky Devi MD Service: Nephrology Author [...] Lora Soliz Last Rate: 200 mL/hr at 02/02/182106 500 mg at 02/02/182106 midodrine (PROAMITINE) tab(s) 15 mg 15 mg [...] (REGLAN) 5 mg INTRAVENOUS q 12 H Loar Soliz 5 mg at 02/02/182106 0.9% NaCl 10 mL 10 mL INTRAVENOUS [...] 1 Drop BOTH EYES QID PRN Paulo (Clinical Applications Manager) Hudock 1 Drop at 01/26/18 1724 heparin [...] 15 mL at 02/03/18 0920 No current [facility]-ordered outpatient prescriptions on file. Vitals: BP 112/56 [...] DEVI MD Observed: 02/03/2018 Status: F Source: [facility] BLOOD 9:20 AM HEALTH SYSTEM REPOSITORY Test performed at [facility] No growth Performed By: #### C_BLO #### [place] [address] PROGRESS Observed: 02/03/2018 Status: COMPLETED Source: [place] 9:06 AM CLINIC OTHER CAMPUS REPOSITORY HNO ID: [id number] Author: Paulo Dial) Radu Service: Critical Care [...] 40 minutes excluding procedures. SIGNATURE: Paulo Lovelace APRN.CHAIR INSPECTOR PATIENT NAME: Naveen Akins DATE: February 03, 2018 TIME: 9:06 AM PROGRESS Observed: 02/03/2018 Status: COMPLETED Source: [place] 8:11 AM [facility] OTHER CAMPUS REPOSITORY [facility] ID: [id number] Author: Lora Soliz Service: Critical Care Author [...] (01/12/2018) DIC (disseminated intravascular coagulation) ([facility]) (01/12/2018) Acute respiratory failure (HCC) (01/12/2018) Cardiac arrest (HCC) (01/12/2018) Anoxic encephalopathy ([facility]CC) (01/13/2018) AAA (abdominal aortic aneurysm, ruptured) ([facility]) (01/12/2018) Obesity, Class I, BMI 30-34.9 (01/16/2018) TERENCE (acute kidney injury) ([facility]) (01/30/2018) Ileus (HCC) (01/30/2018) Acute liver failure without hepatic coma (01/30/2018) AAA rupture with msof, multiple reops, now fascial closure, inc wound vac output LOW grade fevers, mild inc wbc on merrum; picc ok/new; fi02 stable; wound grossly ok. Groin line ok exit resolved hypotension/?shock, increased ?Midodrine and gave rbc to assist BP Severe anoxic enceph POOR OUTLOOK TERENCE on FORENSIC CHEMIST, controlled azotemia but higher off cvvhd, resume [...] vent; ?CheyneStokes periodic breathing on psv?due to call manager; try SIMV knowing typically inferior but has [...] reculture and give vanco one dose 6. Clinical Applications Manager a concern, poor outlook 7. Dcd betty [...] AM PROGRESS Observed: 02/03/2018 Status: COMPLETED Source: [place] 6:23 AM [facility] REPOSITORY O ID: [id number] Author: Dionicio Stevens Service: Vascular Surgery Author [...] Surgery Service Pager: For questions or concerns Tue-Fri 6a-5p please page [phone]. After 5pm and on Weekends and Holidays, please page [phone] if in ICU or [phone] if on RNF. Subjective SUBJECTIVE: Tmax 38.1 [...] 29.67 kg/m? O2 Therapy: Ventilator IANDO: Date 02/02/18 07 - 02/03/18 0659 02/03/18 0700 - 02/04/18 0659 Shift 0814-7803 3867-9747 7291-5135 24 Hour Total 5766-4094 9628-4937 1081-9617 24 Hour Total I N T A [...] Output ([REMOVED] Condom Catheter 01/31/18 1300 Assessment 02/02/180) 10 375 385 Tube Output ( Condom Catheter 02/02/180) 60 130 190 Drains 0 0 Negative [...] Noted - Ruptured abdominal aortic aneurysm (AAA) ([facility]) 01/12/2018 - TERENCE (acute kidney injury) ([facility]) 01/30/2018 - Ileus ([facility]) 01/30/2018 - Acute liver failure without hepatic coma 01/30/2018 - Obesity, Class I, BMI 30-34.9 01/16/2018 - Anoxic encephalopathy ([facility]CC) 01/13/2018 - DIC (disseminated intravascular coagulation) ([facility]) 01/12/2018 - Acute respiratory failure ([facility]) 01/12/2018 - Cardiac arrest ([facility]) 01/12/2018 - AAA (abdominal aortic aneurysm, ruptured) ([facility]) 01/12/2018 Overview Note: Added automatically from request for surgery [id number] 77 year old male with Ruptured AAA [...] questions or concerns Mon-Fri 6a-5p please page [phone]. After 5pm and on Weekends and Holidays, please page [phone] if in ICU or [phone] if on RNF. IONIZED CALCIUM Collected: 02/03/2018 Status: F Source: [facility] 4:45 AM HEALTH SYSTEM REPOSITORY TYPE CODE TESTS RESULT OUT OF REFERENCE UNITS RANGE LAB CAION(LOINC 4.43-4.93 mg/dL ) Low Ionized 3.92 Calcium LAB PHCAI(LOINC 7.320-7.420 ) pH High 7.425 LAB CAPH(LOINC) 4.36-4.73 mg/dL Low Ionized 3.97 Ca,PH7.4 Performed By: #### IONCA #### [facility] [address] [address] HEMOGRAM/DIFF Collected: 02/03/2018 Status: F Source: [facility] 4:45 AM HEALTH SYSTEM REPOSITORY TYPE CODE [...] 1.33 LAB MONON(LOIN 0.30-0.82 thou/cmm C) Abs. Hunt 0.56 LAB EOSN(LOINC 0.04-0.54 thou/cmm ) Abs. Eosin 0.11 LAB BASON(LOIN 0.01-0.08 thou/cmm C) Abs. Baso 0.04 Performed By: #### CBCD1 #### [place] [address] BASIC PANEL Collected: 02/03/2018 Status: F Source: [facility] 4:45 AM HEALTH SYSTEM REPOSITORY TYPE CODE [...] Gap 12 Performed By: #### P8 #### [place] [address] MAGNESIUM BLOOD Collected: 02/03/2018 Status: F Source: [facility] 4:45 AM HEALTH SYSTEM REPOSITORY TYPE CODE TESTS RESULT OUT OF REFERENCE UNITS RANGE LAB MAG(LOINC) 1.6-2.6 mg/dL Low Magnesium Blood 1.4 Performed By: #### MAG #### [place] [id number] PHOSPHORUS BLOOD Collected: 02/03/2018 Status: F Source: [facility] 4:45 AM HEALTH SYSTEM REPOSITORY TYPE CODE TESTS RESULT OUT OF REFERENCE UNITS RANGE LAB PHOS(LOINC 2.5-4.9 mg/dL ) Low Phosphorus Blood 2.2 Performed By: #### PHOS #### [facility] [address] [address] ALLIED HEALTH Observed: 02/02/2018 Status: COMPLETED Source: [place] 1:00 PM [facility] [place] REPOSITORY HNO ID: [id number] Author: Maggi Salas) Chaplain Brain Service: Spiritual Care Author Type: Crack Off Person Type: Allied Health Filed: 02/02/2018 2:26 PM [...] him next week. Will continue to follow. Crack Off Person Signature: Chaplain Daphne To contact the Spiritual Care Department: Please call [phone] or Page the On-Call Crack Off Person at pager [phone] Thank you for the opportunity to be of service. This is an electronically created document. IF PRINTED, PLEASE DO NOT REMOVE FROM THE CHART OR MODIFY PRINTED COPY. PROGRESS Observed: 02/02/2018 Status: COMPLETED Source: [place] 12:33 PM [facility] [place] REPOSITORY HNO ID: [id number] Author: Vicky Devi MD Service: Nephrology Author Type: Physician Type: Progress Notes Filed: 02/02/2018 12:35 PM Note Text: Nephrology Progress Note Following for TERENCE. Pt is trached. Remains on ventilator. On FIO2 35%. Off BP pressros Cannot do ROS. Current Inpatient Medications: Current Facility-Administered Medications Ordered in Epic: Parenteral Nutrition - Adult INTRAVENOUS ONCE TPN (1800 START) Perla Dudley Parenteral Nutrition - Adult INTRAVENOUS ONCE [...] BID Dorcas Mike Decoy 0.5 mg at 02/02/18 0840 senna leaf extract 176 mg/5 mL 528 mg 15 mL OROGASTRIC BID Dionicio (Res) Stevens 528 mg at 02/02/18 0800 carboxymethylcellulose sodium 1-2 Drop (CELLUVISC) 1-2 Drop BOTH EYES PRN Venkat Paniagua 2 Drop at 01/26/18 1625 polyvinyl alcohol-povidone 1.4-0.6 % 1 Drop (REFRESH) 1 Drop BOTH EYES QID PRN Paulo (Clinical Applications Manager) Hudock 1 Drop at 01/26/18 1724 heparin [...] 15 mL at 02/02/18 0759 No current [facility]-ordered outpatient prescriptions on file. Vitals: BP 113/69 [...] MD NUTRITION Observed: 02/02/2018 Status: COMPLETED Source: [place] 10:54 AM [facility] REPOSITORY O ID: [id number] Author: Viry Mosher RD Service: NST-Nutrition Support [...] units in TPN bag ? [facility] Renal is 42 cc/hr providing 2000 calories [...] PREALB 27.[address], LD, [facility] Pager: [phone] Increments: 3 PROGRESS Observed: 02/02/2018 Status: COMPLETED Source: [place] 9:09 AM [facility] OTHER CAMPUS REPOSITORY O ID: [id number] Author: Lora Soliz Service: Critical Care Author [...] Diagnosis Date - DIC (disseminated intravascular coagulation) ([facility]) 01/12/2018 PAST SURGICAL HISTORY Procedure Laterality [...] Ventilator Mode: Pressure Regulated Volume Control (02/02/18 08) Set Ventilator Respiratory Rate (BPM): 18 (02/02/18 08) Total Respiratory Rate (BPM): 18 (02/02/18 08) Tidal Volume Set (mL): 500 (02/02/18 08) Exhaled Tidal Volume (mL): 560 (02/02/18806) Minute Volume (L): 10.6 (02/02/18 08) Peak Inspiratory Pressure (cm H2O): 18 (02/02/18 08) PEEP/CPAP (cm H2O): 5 (02/02/18806) HEMODYNAMIC DATA: reviewed NUTRITION: tpn 50 Enteral [...] Problem List: Ruptured abdominal aortic aneurysm (AAA) ([facility]) (01/12/2018) DIC (disseminated intravascular coagulation) ([facility]) (01/12/2018) Acute respiratory failure ([facility]) (01/12/2018) Cardiac arrest ([facility]) (01/12/2018) Anoxic encephalopathy ([facility]) (01/13/2018) AAA (abdominal aortic aneurysm, ruptured) ([facility]) (01/12/2018) Obesity, Class I, BMI 30-34.9 (01/16/2018) TERENCE (acute kidney injury) ([facility]) (01/30/2018) Ileus ([facility]) (01/30/2018) Acute liver failure without hepatic coma (01/30/2018) AAA rupture with msof, multiple reops, now fascial closure resolved hypotension/?shock, increased Midodrine and gave rbc to assist BP Severe anoxic enceph POOR OUTLOOK TERENCE on FORENSIC CHEMIST, controlled azotemia but higher off cvvhd, resume [...] CheyneStokes periodic breathing on psv due to call manager; try SIMV knowing typically inferior but has apnea at times 2. Tpn at 1700kcal /day, low TF; reglan noted (EKG qtc 480) so decrease #; prealb 23; 3. HD; fluid even; 4. Taper steroids hydrocortisone 25mg, stop 5. merrum thru 02/07 noted 6. Clinical Applications Manager a concern, poor outlook 7. Dcd betty > 10 days, nil norepi 8. PICC done ,?new tunneled HD cath soon?if needs further FORENSIC CHEMIST 9. Wound care? 10. Should be DNR, [...] AM PROGRESS Observed: 02/02/2018 Status: COMPLETED Source: [place] 6:15 AM CLINIC OTHER CAMPUS REPOSITORY O ID: [id number] Author: Dionicio Stevens Service: Vascular Surgery Author [...] questions or concerns Mon-Fri 6a-5p please page [phone]. After 5pm and on Weekends and Holidays, please page [phone] if in ICU or [phone] if on RNF. Subjective SUBJECTIVE: NAEON Diet: [...] kg/m? O2 Therapy: Ventilator IANDO: Date 02/01/18 0700 - 02/02/18 0659 02/02/18 0700 - 02/03/18 0659 Shift 7266-4499 6952-0413 7732-5537 24 Hour Total 8690-5763 1743-1513 7859-3143 24 Hour Total I N T A [...] 2 x 2 x Shift Total 580 729 140 6181 Weight (kg) 85.5 87 87 87 87 [...] Noted - Ruptured abdominal aortic aneurysm (AAA) ([facility]) 01/12/2018 - TERENCE (acute kidney injury) ([facility]) 01/30/2018 - Ileus ([facility]) 01/30/2018 - Acute liver failure without hepatic coma 01/30/2018 - Obesity, Class I, BMI 30-34.9 01/16/2018 - Anoxic encephalopathy ([facility]) 01/13/2018 - DIC (disseminated intravascular coagulation) ([facility]) 01/12/2018 - Acute respiratory failure ([facility]) 01/12/2018 - Cardiac arrest ([facility]) 01/12/2018 - AAA (abdominal aortic aneurysm, ruptured) ([facility]) 01/12/2018 Overview Note: Added automatically from request for surgery [id number] 77 year old male with Ruptured AAA [...] RNF. HEMOGRAM/DIFF Collected: 02/02/2018 Status: F Source: [facility] 5:00 AM HEALTH SYSTEM REPOSITORY TYPE CODE [...] 0.82 LAB MONON(LOIN 0.30-0.82 thou/cmm C) Abs. Hunt 0.43 LAB EOSN(LOINC 0.04-0.54 thou/cmm ) Low Abs. Eosin 0.01 LAB BASON(LOIN 0.01-0.08 thou/cmm C) Abs. Baso 0.01 Result Comment: Smear scanned; tech agrees with automated differential Performed By: #### CBCD1 #### [place] [address] IONIZED CALCIUM Collected: 02/02/2018 Status: F Source: [facility] 5:00 AM HEALTH SYSTEM REPOSITORY TYPE CODE TESTS RESULT OUT OF REFERENCE UNITS RANGE LAB CAION(LOINC 4.43-4.93 mg/dL ) Low Ionized 3.83 Calcium LAB PHCAI(LOINC 7.320-7.420 ) pH High 7.421 LAB CAPH(LOINC) 4.36-4.73 mg/dL Low Ionized 3.87 Ca,PH7.4 Performed By: #### IONCA #### [place] [address] BASIC PANEL Collected: 02/02/2018 Status: F Source: [facility] 5:00 HEALTH SYSTEM REPOSITORY TYPE CODE TESTS [...] Gap 17 Performed By: #### P8 #### [place] [address] PREALBUMIN Collected: 02/02/2018 Status: F Source: [facility] 5:00 [facility] SYSTEM REPOSITORY TYPE CODE TESTS RESULT OUT OF REFERENCE UNITS RANGE LAB PAB(LOINC) 20.0-40.0 mg/dL Prealbumin 27.5 Performed By: #### PAB #### [place] [address] TRIGLYCERIDE BLOOD Collected: 02/02/2018 Status: F Source: [facility] 5:00 AM HEALTH SYSTEM REPOSITORY TYPE CODE TESTS RESULT OUT OF REFERENCE UNITS RANGE LAB TRIG(LOINC 0-149 mg/dL ) Triglyceride High Blood 336 Result Comment: < 200 Desirable Result invalid if not a fasting specimen. Performed By: #### TRIG #### [facility] [address] [place] [address] MAGNESIUM BLOOD Collected: 02/02/2018 Status: F Source: [facility] 5:00 AM HEALTH SYSTEM REPOSITORY TYPE CODE TESTS RESULT OUT OF REFERENCE UNITS RANGE LAB MAG(LOINC) 1.6-2.6 mg/dL Magnesium Blood 1.8 Performed By: #### MAG #### [place] [address] PHOSPHORUS BLOOD Collected: 02/02/2018 Status: F Source: [facility] 5:00 AM HEALTH SYSTEM REPOSITORY TYPE CODE TESTS RESULT OUT OF REFERENCE UNITS RANGE LAB PHOS(LOINC 2.5-4.9 mg/dL ) Phosphorus Blood 4.9 Performed By: #### PHOS #### [place] [address] CASE MANAGEM Observed: 02/01/2018 Status: COMPLETED Source: [place] 2:31 PM CLINIC OTHER CAMPUS REPOSITORY O ID: [id number] Author: Steve (Magaly) MAGALY Rivera Service: Care Management Author Type: [...] per MD note if pt needs further FORENSIC CHEMIST. Per MD note, prognosis is poor and family has been very resistant to DNR. Will continue to follow for dc needs. SIGNATURE: Steve Rivera RN PATIENT NAME: Naveen Akins DATE: February 01, 2018 TIME: 2:31 PM PAGER/CONTACT #: [phone] PROGRESS Observed: 02/01/2018 Status: COMPLETED Source: [place] 1:32 PM [facility] REPOSITORY HNO ID: [id number] Author: Abbi Garcia) MAGALY Mtz Service: Wound Care Team Author [...] February 01, 2018 TIME: 2:33 PM CONTACT#: [id number] PROGRESS Observed: 02/01/2018 Status: COMPLETED Source: [place] 11:05 AM [facility] REPOSITORY HNO ID: [id number] Author: Lora Soliz Service: Critical Care Author [...] H2O): 16 (02/01/18403) PEEP/CPAP (cm H2O): 5 (02/01/1835) HEMODYNAMIC DATA: reviewed NUTRITION: npo Enteral Feeds: VENT: 500/35 WEANS: poor SEDATION: none DRIPS: PRESSORS: minimal [...] Problem List: Ruptured abdominal aortic aneurysm (AAA) ([facility]) (01/12/2018) DIC (disseminated intravascular coagulation) ([facility]) (01/12/2018) Acute respiratory failure ([facility]) (01/12/2018) Cardiac arrest ([facility]) (01/12/2018) Anoxic encephalopathy ([facility]) (01/13/2018) AAA (abdominal aortic aneurysm, ruptured) ([facility]) (01/12/2018) Obesity, Class I, BMI 30-34.9 (01/16/2018) TERENCE (acute kidney injury) ([facility]) (01/30/2018) Ileus (HCC) (01/30/2018) Acute liver failure without hepatic coma (01/30/2018) AAA rupture with msof, multiple reops, now fascial closure Persistent hypotension/ shock, increased Midodrine and gave rbc to assist BP Severe anoxic enceph POOR OUTLOOK TERENCE on FORENSIC CHEMIST, controlled azotemia but higher off cvvhd, hold [...] CheyneStokes periodic breathing on psv due to call manager; 2. Tpn at 1700kcal /day, ?low TF; reglan noted (EKG qtc 480) so decrease #; prealb 23; ?take GT off suction soon 3. Cvvhd off; fluid even; 4. Taper steroids hydrocortisone 25mg 5. merrum 6. Clinical Applications Manager a concern, poor outlook 7. Dc betty > 10 days, nil norepi 8. PICC done ,cvl > 10 days; ?new tunneled HD cath soon?if needs further FORENSIC CHEMIST 9. Wound care 10. Should be DNR, [...] AM NUTRITION Observed: 02/01/2018 Status: COMPLETED Source: [place] 10:57 AM CLINIC OTHER CAMPUS REPOSITORY HNO ID: [id number] Author: Viry Wells) KRISHAN Mosher Service: NST-Nutrition [...] Resting Metabolic Rate: 1559 Estimated kilocalorie needs: 7366-0053 kilocalories determined by 20-30 kcal/kg Estimated protein [...] mL ORAL q 12 H Date 01/31/18 07 - 02/01/18 0659 02/01/18 0700 - 02/02/18 0659 Shift 1675-3628 8813-0290 5403-3587 24 Hour Total 6191-8152 5825-3054 4828-4222 24 Hour Total I N T A [...] 1 VIEW Observed: 02/01/2018 Status: F Source: [facility] 10:06 AM HEALTH SYSTEM REPOSITORY Performed at [facility] APPROVED BY: GILBERT NAVARRO MD ABDOMEN, 1 VIEW. CLINICAL INFORMATION: Abdominal pain TECHNIQUE: Supine abdomen, 1 image(s) COMPARISON: 01/23/2018 RESULT: Previously seen NG tube is been removed. G-tube seen in the LEFT upper quadrant. Right femoral catheter. There are no dilated bowel loops. Degenerative changes in the spine. No pathologic calcifications. IMPRESSION: NO ACUTE ABNORMALITY PROCEDURE Observed: 02/01/2018 Status: COMPLETED Source: [place] 8:57 AM [facility] OTHER CAMPUS REPOSITORY HNO ID: [id number] Author: Stacey (Magaly) MAGALY Henry Service: PICC Team Author Type: Registered Nurse Type: Procedures Filed: 02/01/2018 9:03 AM Note Text: PICC/MIDLINE CATHETER GUIDEWIRE EXCHANGE DATE OF PROCEDURE: February 01, 2018 TIME OF PROCEDURE: 815 ORDERING PHYSICIAN: Dr Paniagua INFORMED CONSENT: obtained per hospital policy. INDICATION FOR LINE PLACEMENT: Vesicant medication-high risk for extravasation CONDITION OF LINE PLACEMENT: Sterile PRIMARY PROCEDURALIST: Stacey Henry RN REGISTERED ROUTE ASSOCIATE: Beena Pena PRE-PROCEDURE REVIEW ALLERGIES No Known Allergies Known [...] REPLACEMENT: PICC not in optimal position Brand: Melinda Lot: [id number] Number of lumens: 2 Type of PICC: Power Injectable PICC Lumen size: 5.5 Monegasque PLACEMENT TECHNIQUE Lidocaine: No Modified Seldinger Technique [...] Placed in chart QUESTIONS or PROBLEMS: Call [phone] SIGNATURE: Stacey Henry RN PATIENT NAME: Naveen Akins DATE: February 01, 2018 TIME: 8:58 AM PAGER: [phone] PROGRESS Observed: 02/01/2018 Status: COMPLETED Source: [place] 8:02 AM CLINIC OTHER CAMPUS REPOSITORY HNO ID: [id number] Author: Vicky Devi MD Service: Nephrology Author [...] Edwin Dudley Last Rate: 62.5 mL/hr at 02/01/18 0730 midodrine (PROAMITINE) tab(s) 15 mg 15 mg PEG q 8 H Lora Soliz 15 mg at 02/01/18 0440 pantoprazole 40 mg injection (PROTONIX) 40 mg INTRAVENOUS DAILY (6 AM) Lora Soliz 40 mg at 02/01/18 0439 carboxymethylcellulose [...] 8 H Lora Soliz 25 mg at 02/01/18 0439 ipratropium-albuterol 3 mL nebulizer solution (DUONEB) 3 [...] Dorcas Palafox Last Rate: 200 mL/hr at 02/01/18 0440 500 mg at 02/01/18 0440 budesonide 0.5 mg/2 mL 0.5 mg (PULMICORT) 0.5 mg INHALATION BID Dorcas Mckeon Decoy 0.5 mg at 01/31/18 1935 senna leaf extract 176 mg/5 mL 528 mg 15 mL OROGASTRIC BID Dionicio (Res) Stevens 528 mg at 01/31/18 211 carboxymethylcellulose sodium 1-2 Drop (CELLUVISC) 1-2 Drop BOTH EYES PRN Venkat Paniagua 2 Drop at 01/26/18 1625 polyvinyl alcohol-povidone 1.4-0.6 % 1 Drop (REFRESH) 1 Drop BOTH EYES QID PRN Paulo (Clinical Applications Manager) Radu 1 Drop at 01/26/18 1724 heparin [...] H Elder Yu) Kalee 15 mL at 01/31/180 No current [facility]-ordered outpatient prescriptions on file. Vitals: BP 109/60 [...] MD PROGRESS Observed: 02/01/2018 Status: COMPLETED Source: [place] 6:24 AM CLINIC OTHER CAMPUS REPOSITORY HNO ID: [id number] Author: Dionicio (Edenilson) Rodney Service: Vascular Surgery [...] the family and they are coming to car shunter with the fact that he is probably going to be moving from here to a different facility still receiving a high level of care. Vascular Surgery Progress Note SERVICE DATE: 02/01/2018 Vascular AND Thoracic Surgery Service Pager: For questions or concerns Mon-Tue 6a-5p please page [phone]. After 5pm and on Weekends and Holidays, please page [phone] if in ICU or [phone] if on [...] 0659 02/01/18 07 - 02/02/18 0659 Shift 5148-6312 3843-0690 1695-1785 24 Hour Total 2916-5112 1575-2328 0822-8455 24 Hour Total I N T A [...] Noted - Ruptured abdominal aortic aneurysm (AAA) ([facility]) 01/12/2018 - TERENCE (acute kidney injury) [...] Note: Added automatically from request for surgery [id number] 77 year old male with Ruptured AAA [...] questions or concerns Mon-Fri 6a-5p please page [phone]. After 5pm and on Weekends and Holidays, please page [phone] if in ICU or [phone] if on RNF. CHEST 1 VIEW Observed: 02/01/2018 Status: F Source: [facility] 4:52 AM HEALTH SYSTEM REPOSITORY Performed at [facility] APPROVED BY: Justino Rodriguez MD EXAMINATION: CHEST [...] IONIZED CALCIUM Collected: 02/01/2018 Status: F Source: [facility] 4:00 AM HEALTH SYSTEM REPOSITORY TYPE CODE TESTS RESULT OUT OF REFERENCE UNITS RANGE LAB CAION(LOINC 4.43-4.93 mg/dL ) Low Ionized 3.90 Calcium LAB PHCAI(LOINC 7.320-7.420 ) pH High 7.530 LAB CAPH(LOINC) 4.36-4.73 mg/dL Low Ionized 4.17 Ca,PH7.4 Performed By: #### IONCA #### [facility] [address] [address] HEMOGRAM/DIFF Collected: 02/01/2018 Status: F Source: [facility] 4:00 AM HEALTH SYSTEM REPOSITORY TYPE CODE [...] 0.75 LAB MONON(LOIN 0.30-0.82 thou/cmm C) Abs. Hunt 0.43 LAB EOSN(LOINC 0.04-0.54 thou/cmm ) Low Abs. Eosin 0.00 LAB BASON(LOIN 0.01-0.08 thou/cmm C) Abs. Baso 0.01 Performed By: #### CBCD1 #### [facility] [address] [address] BASIC PANEL Collected: 02/01/2018 Status: F Source: [facility] 4:00 AM HEALTH SYSTEM REPOSITORY TYPE CODE [...] Gap 17 Performed By: #### P8 #### [facility] [address] [place] [address] MAGNESIUM BLOOD Collected: 02/01/2018 Status: F Source: [facility] 4:00 AM HEALTH SYSTEM REPOSITORY TYPE CODE TESTS RESULT OUT OF REFERENCE UNITS RANGE LAB MAG(LOINC) 1.6-2.6 mg/dL Magnesium Blood 1.9 Performed By: #### MAG #### [place] [address] PHOSPHORUS BLOOD Collected: 02/01/2018 Status: F Source: [facility] 4:00 AM HEALTH SYSTEM REPOSITORY TYPE CODE TESTS RESULT OUT OF REFERENCE UNITS RANGE LAB PHOS(LOINC 2.5-4.9 mg/dL ) Phosphorus Blood 4.6 Performed By: #### PHOS #### [place] [address] MAGNESIUM BLOOD Collected: 01/31/2018 Status: F Source: [facility] 11:50 PM HEALTH SYSTEM REPOSITORY TYPE CODE TESTS RESULT OUT OF REFERENCE UNITS RANGE LAB MAG(LOINC) 1.6-2.6 mg/dL Magnesium Blood 1.9 Performed By: #### MAG #### [place] [address] MAGNESIUM BLOOD Collected: 01/31/2018 Status: F Source: [facility] 6:00 PM HEALTH SYSTEM REPOSITORY TYPE CODE TESTS RESULT OUT OF REFERENCE UNITS RANGE LAB MAG(LOINC) 1.6-2.6 mg/dL Magnesium Blood 1.9 Performed By: #### MAG #### [place] [address] RBC PRODUCTS Collected: 01/31/2018 Status: F Source: [facility] 5:23 PM HEALTH SYSTEM REPOSITORY TYPE CODE TESTS RESULT OUT OF REFERENCE UNITS RANGE LAB UNIT1(LOINC ) Xmatch Unit 1 see below Result Comment: Compatible Performed By: #### RBCPS #### [place] [address] CHEST 1 VIEW Observed: 01/31/2018 Status: F Source: [facility] 4:49 PM HEALTH SYSTEM REPOSITORY Performed at [facility] APPROVED BY: Moy Zelaya MD EXAMINATION: CHEST [...] PT ED Observed: 01/31/2018 Status: COMPLETED Source: [place] 4:41 PM [facility] [place] REPOSITORY HNO ID: [id number] Author: Paulo TylerRn) MAGALY Fernando Service: PICC Team Author Type: Registered Nurse Type: Patient Education Filed: 01/31/2018 4:43 PM Note Text: PATIENT EDUCATION TOPIC: PROCEDURE / SURGERY: Procedure/Surgery: picc PATIENT NAME: Naveen Akins PATIENT LOCATION: [place] [address]* READINESS TO LEARN COGNITIVE ABILITY: sedated MOTIVATION [...] TO PATIENT: Brochures given to patient: BROCHURE [[id number]] REFERRAL (RECOMMENDATION): None Electronically Signed By: Paulo Fernando RN SEE PATIENT EDUCATION SECTION OF THE EMR PROCEDURE Observed: 01/31/2018 Status: COMPLETED Source: [place] 4:30 PM [facility] OTHER [place] REPOSITORY HNO ID: [id number] Author: Stacey Garcia) Sladky, RN Service: PICC Team Author Type: Registered Nurse Type: Procedures Filed: 01/31/2018 5:19 PM Note Text: PICC NURSE INSERTION NOTE DATE OF PROCEDURE: January 31, 2018 TIME OF PROCEDURE: 1520 ORDERING PHYSICIAN: DR Paniagua INFORMED CONSENT: Obtained per hospital policy. INDICATION FOR LINE PLACEMENT: Vesicant medication-high risk for extravasation CONDITION OF LINE PLACEMENT: Sterile PRIMARY PROCEDURALIST: Stacey Henry RN REGISTERED ROUTE ASSOCIATE: Demi Fernando RN PRE-PROCEDURE REVIEW ALLERGIES No [...] exchange PICC in AM. Discussed plan with MAGALY Henry RN CATHETER PLACEMENT Brand: ARROW Lot: [id number] Number of Lumens: 2 Type of PICC: Power Injectable PICC Lumen Size: 5.5 Monegasque Arrow PLACEMENT TECHNIQUE Lidocaine: Yes. Strength: 1% [...] None Patient Education Materials: Placed in chart [facility] Line Insertion Checklist utilized during this procedure QUESTIONS or PROBLEMS: Call [phone] SIGNATURE: Stacey Henry RN PATIENT NAME: Naveen Akins DATE: January 31, 2018 TIME: 4:30 PM PAGER/CONTACT PHONE: RBC PRODUCTS Collected: 01/31/2018 Status: F Source: [facility] 4:30 PM HEALTH SYSTEM REPOSITORY TYPE CODE TESTS RESULT OUT OF REFERENCE UNITS RANGE LAB UNIT1(LOINC ) Xmatch Unit 1 see below Result Comment: Compatible Performed By: #### RBCPS #### [place] [address] TYPE AND SCREEN Collected: 01/31/2018 Status: F Source: [facility] 4:30 PM HEALTH SYSTEM REPOSITORY TYPE CODE TESTS RESULT OUT OF REFERENCE UNITS RANGE LAB ABO(LOINC) O ABO Group LAB LABOR TRAINER(LOINC ) RH Type Positive LAB ABSCR(LOIN C) Antibody NEGATIVE Screen LAB BBCMT(LOIN C) Comment See Below Result Comment: Screen &/or Xmatch expires in 3 days at 12 midnight. Redraw patient at that time. Performed By: #### T&S #### [place] [address] RBC PRODUCTS Collected: 01/31/2018 Status: F Source: [facility] 4:30 PM HEALTH SYSTEM REPOSITORY TYPE CODE TESTS RESULT OUT OF REFERENCE UNITS RANGE LAB UNIT1(LOINC ) Xmatch Unit 1 see below Result Comment: Compatible Performed By: #### RBCPS #### [place] [address] ALLIED HEALTH Observed: 01/31/2018 Status: COMPLETED Source: [place] 4:07 PM CLINIC OTHER CAMPUS REPOSITORY HNO ID: [id number] Author: Chaplain Serna (Chaplain) Service: Spiritual Care Author Type: Crack Off Person Type: Allied Health Filed: 01/31/2018 4:08 PM Note Text: SPIRITUALCARE Spiritual Care Visit- Brief Note Name: Naveen Akins Date: January 31, 2018 Notes: Checked in w/pt's fam; later offered silent prayer outside his door. Pt undergoing a procedure. Dtr arrived outside while I was praying for him. Crack Off Person Signature: Chaplain Daphne To contact the Spiritual Care Department: Please call [phone] or Page the On-Call Crack Off Person at pager [phone] Thank you for the opportunity to be of service. This is an electronically created document. IF PRINTED, PLEASE DO NOT REMOVE FROM THE CHART OR MODIFY PRINTED COPY. PROGRESS Observed: 01/31/2018 Status: COMPLETED Source: [place] 2:58 PM CLINIC OTHER CAMPUS REPOSITORY O ID: [id number] Author: Lora Soliz Service: Critical Care Author [...] 45 (01/31/181247) Tidal Volume Set (mL): 500 (01/31/188) Exhaled Tidal Volume (mL): 404 (01/31/188) Minute Volume (L): 17 (01/31/181247) Peak Inspiratory Pressure (cm H2O): 14 (01/31/18 1248) PEEP/CPAP (cm H2O): 5 (01/31/18 124) HEMODYNAMIC DATA: reviewed NUTRITION: tpn Enteral Feeds: [...] Problem List: Ruptured abdominal aortic aneurysm (AAA) ([facility]) (01/12/2018) DIC (disseminated intravascular coagulation) ([facility]) (01/12/2018) Hemorrhagic shock ([facility]) (01/12/2018) Acute respiratory failure ([facility]) (01/12/2018) Cardiac arrest ([facility]) (01/12/2018) Anoxic encephalopathy ([facility]) (01/13/2018) AAA (abdominal aortic aneurysm, ruptured) ([facility]) (01/12/2018) Obesity, Class I, BMI 30-34.9 (01/16/2018) TERENCE (acute kidney injury) ([facility]) (01/30/2018) Ileus (HCC) (01/30/2018) Acute liver failure without hepatic coma (01/30/2018) AAA rupture with msof, multiple reops, now fascial closure Persistent hypotension/ shock, low midodrine Severe anoxic enceph POOR OUTLOOK TERENCE on FORENSIC CHEMIST, controlled azotemia but higher off cvvhd Recovered [...] vent; some CheyneStokes periodic breathing due to call manager 2. Tpn at 1700kcal /day, ?low TF; reglan noted (EKG qtc 480) will decrease #; prealb 23 3. Cvvhd off; fluid even; remove fluid if off pressors 4. Taper steroids hydrocortisone 25mg 5. merrum 6. Clinical Applications Manager a concern, poor outlook 7. Dc betty [...] No Family Updated No Discussed with Staff Yes,LITERACY TUTOR, Rn , Dr Lorenzo Time spent providing critical care services: 30 minutes excluding billable procedures. SIGNATURE: Lora Soliz MD PATIENT NAME: Naveen Akins DATE: January 31, 2018 TIME: 2:58 PM PROGRESS Observed: 01/31/2018 Status: COMPLETED Source: [place] 1:24 PM CLINIC OTHER CAMPUS REPOSITORY O ID: [id number] Author: Yamel (Rn) MAGALY Young Service: Dialysis Author Type: Registered [...] MAGNESIUM BLOOD Collected: 01/31/2018 Status: F Source: [facility] 1:00 PM HEALTH SYSTEM REPOSITORY TYPE CODE TESTS RESULT OUT OF REFERENCE UNITS RANGE LAB MAG(LOINC) 1.6-2.6 mg/dL Magnesium Blood 1.8 Performed By: #### MAG #### [facility] [address] [address] NUTRITION Observed: 01/31/2018 Status: COMPLETED Source: [place] 11:28 AM CLINIC OTHER CAMPUS REPOSITORY HNO ID: [id number] Author: Viry Mosher RD Service: NST-Nutrition Support [...] [address], [place], [facility] Pager: [phone] Increments: 3 PROGRESS Observed: 01/31/2018 Status: COMPLETED Source: [place] 10:47 AM CLINIC OTHER CAMPUS REPOSITORY O ID: [id number] Author: Paulo Lovelace (Cns) Service: Critical Care [...] 40 minutes excluding procedures. SIGNATURE: Paulo Lovelace APRN.CHAIR INSPECTOR PATIENT NAME: Naveen Akins DATE: January 31, 2018 TIME: 10:47 AM BLOOD GAS ARTERIAL Collected: 01/31/2018 Status: F Source: [facility] 10:35 AM HEALTH SYSTEM REPOSITORY TYPE CODE [...] Excess 1.1 Performed By: #### ABG #### [place] [address] PROGRESS Observed: 01/31/2018 Status: COMPLETED Source: [place] 6:13 AM CLINIC OTHER CAMPUS REPOSITORY O ID: [id number] Author: Dionicio Stevens Service: Vascular Surgery Author [...] 28.97 kg/m? O2 Therapy: Ventilator IANDO: Date 01/30/18699 - 01/31/18 0659 01/31/18 07 - 02/01/18 0659 Shift 4136-0621 4115-1945 6793-0609 24 Hour Total 5733-7365 2093-6500 2947-5311 24 Hour Total I N T A K E IV 336 185 521 NS 0.9% 42 135 177 Calcium IVPB 282 282 NORepinephrine Volume 12 12 Meropenem (Merrem) 0 50 50 TPN/PPN 498 393 094 0727 TPN 498 060 246 4978 Shift Total 834 966 262 1339 O U T P U T Urine [...] Output (Ultrafiltration) 510 510 Shift Total 860 093 004 7271 Weight (kg) 86.4 86.4 86.4 86.4 86.4 [...] Noted - Ruptured abdominal aortic aneurysm (AAA) ([facility]) 01/12/2018 - TERENCE (acute kidney injury) ([facility]) 01/30/2018 - Ileus ([facility]) 01/30/2018 - Acute liver failure without hepatic coma 01/30/2018 - Obesity, Class I, BMI 30-34.9 01/16/2018 - Anoxic encephalopathy ([facility]) 01/13/2018 - DIC (disseminated intravascular coagulation) ([facility]) 01/12/2018 - Hemorrhagic shock ([facility]) 01/12/2018 - Acute respiratory failure ([facility]) 01/12/2018 - Cardiac arrest ([facility]) 01/12/2018 - AAA (abdominal aortic aneurysm, ruptured) ([facility]) 01/12/2018 Overview Note: Added automatically from request for surgery [id number] 77 year old male with Ruptured AAA [...] 1 VIEW Observed: 01/31/2018 Status: F Source: [facility] 5:56 AM HEALTH SYSTEM REPOSITORY Performed at [facility] APPROVED BY: Skip Hickey MD EXAM TITLE: [...] BASIC PANEL Collected: 01/31/2018 Status: F Source: [facility] 4:15 AM HEALTH SYSTEM REPOSITORY TYPE [...] Blood 186 Performed By: #### P8 #### [facility] [address] [place], [place] [address] IONIZED CALCIUM Collected: 01/31/2018 Status: F Source: [facility] 4:15 HEALTH SYSTEM REPOSITORY TYPE CODE TESTS RESULT OUT OF REFERENCE UNITS RANGE LAB CAION(LOINC 4.43-4.93 mg/dL ) Low Ionized 4.16 Calcium LAB PHCAI(LOINC 7.320-7.420 ) pH High 7.538 LAB CAPH(LOINC) 4.36-4.73 mg/dL Ionized 4.46 Ca,PH7.4 Performed By: #### IONCA #### [facility] [address] [place] [id number] HEMOGRAM/DIFF Collected: 01/31/2018 Status: F Source: [facility] 4:15 HEALTH SYSTEM REPOSITORY TYPE CODE TESTS RESULT [...] 0.68 LAB MONON(LOIN 0.30-0.82 thou/cmm C) Abs. Hunt 0.54 LAB EOSN(LOINC 0.04-0.54 thou/cmm ) Low Abs. Eosin 0.00 LAB BASON(LOIN 0.01-0.08 thou/cmm C) Abs. Baso 0.01 Result Comment: Smear scanned; tech agrees with automated differential Performed By: #### CBCD1 #### [place] [address] MAGNESIUM BLOOD Collected: 01/31/2018 Status: F Source: [facility] 4:15 AM HEALTH SYSTEM REPOSITORY TYPE CODE TESTS RESULT OUT OF REFERENCE UNITS RANGE LAB MAG(LOINC) 1.6-2.6 mg/dL Magnesium Blood 2.3 Performed By: #### MAG #### [place] [address] PHOSPHORUS BLOOD Collected: 01/31/2018 Status: F Source: [facility] 4:15 AM HEALTH SYSTEM REPOSITORY TYPE CODE TESTS RESULT OUT OF REFERENCE UNITS RANGE LAB PHOS(LOINC 2.5-4.9 mg/dL ) Phosphorus Blood 4.3 Performed By: #### PHOS #### [place] [address] OPERATIVE NO Observed: 01/31/2018 Status: COMPLETED Source: [place] 12:00 AM CLINIC OTHER CAMPUS REPOSITORY HNO ID: [id number] Author: Simi Cox Service: Vascular Surgery Author Type: Physician Type: Operative Report Filed: 02/01/2018 8:42 AM Note Text: [facility] - Operative Report SURGEON: Simi Cox MD, FACS PATIENT NAME: NAVEEN AKINS CSN: [id number] DATE OF SURGERY: 01/27/2018 DATE OF : 1940 SEX/AGE: M/77 PATIENT TYPE: I HOSP SVC: LICO LOCATION: [id number] DATE OF SURGERY: 01/27/2018 SURGEON: Simi Cox MD, FACS PREOPERATIVE DIAGNOSIS: Respiratory failure, status post abdominal aortic aneurysm repair. POSTOPERATIVE DIAGNOSIS: Respiratory failure, status post abdominal aortic aneurysm repair. TITLE OF THE OPERATION: Insertion of tracheostomy, 8-Monegasque. REGISTERED ROUTE ASSOCIATE: Ashu Menezes M.D. and Hailey Dixon SA HISTORY: This is a 77-year-old man who underwent repair of ruptured abdominal aortic aneurysm. This is a patient, who was transferred to [facility] and was in the process of [...] withdraw the endotracheal tube. Initially, the 8- Monegasque Shiley did not easily go, so we transitioned over a stylet to the percutaneous type trach with a dilator and used the 8-Monegasque dilator to gain access of the new [...] Simi Cox MD, FACS Cardiothoracic Surgery RGN:modl /[id number] ALLIED HEALTH Observed: 01/30/2018 Status: COMPLETED Source: [place] 8:37 PM [facility] REPOSITORY HNO ID: [id number] Author: Chaplain Perales (Chaplain) Service: Spiritual Care Author Type: Crack Off Person Type: Allied Health Filed: 01/30/2018 11:14 PM Note Text: SPIRITUALCARE Spiritual Care Visit- Brief Note Name: Naveen Akins Date: January 30, 2018 Notes: Met fam in 3rd wtg and they spoke of pts illness. Later I met them in pts room and we prayed. Fam looking for a miracle. I made S/C available to them again.They thanked me for coming. Crack Off Person Signature: Chaplain Diaz To contact the Spiritual Care Department: Please call [phone] or Page the On-Call Crack Off Person at pager [phone] Thank you for the opportunity to be of service. This is an electronically created document. IF PRINTED, PLEASE DO NOT REMOVE FROM THE CHART OR MODIFY PRINTED COPY. NURSING PROG Observed: 01/30/2018 Status: COMPLETED Source: [place] 3:17 PM [facility] REPOSITORY HNO ID: [id number] Author: Tita TylerRnLisette Marquis RN Service: Nursing Author Type: Registered Nurse Type: Nursing Progress Note Filed: 01/30/2018 3:18 PM Note Text: Blood returned and CRRT ended per Dr Lorenzo order. Plan to HD tomorrow PROGRESS Observed: 01/30/2018 Status: COMPLETED Source: [place] 2:18 PM [facility] REPOSITORY HNO ID: [id number] Author: Shen Lorenzo Service: Nephrology Author Type: [...] injection (PROTONIX) 40 mg INTRAVENOUS BID AC (06/1600) Jocelynn (Res) Robson 40 mg at 01/30/18 [...] 1 Drop BOTH EYES QID PRN Paulo (Clinical Applications Manager) [place] 1 Drop at 01/26/18 1724 heparin [...] 15 mL at 01/30/18 0812 No current [facility]-ordered outpatient prescriptions on file. Vitals: BP 108/53 [...] do not hesitate to contact me at [phone] if there is any question or concern. Rosanna Talbert MD (Shen Lorenzo) CASE MANAGEM Observed: 01/30/2018 Status: COMPLETED Source: [place] 12:59 PM CLINIC OTHER CAMPUS REPOSITORY O ID: [id number] Author: Lorrie (Rn) MAGALY Bo Service: (none) [...] 30, 2018 TIME: 1:00 PM PAGER/CONTACT #: [phone] EKG (AK,AV,EU,FV,HL,CYNTHIA,MM,SP) Observed: Status: F Source: [place] 01/30/2018 12:42 CLINIC OTHER PM CAMPUS REPOSITORY NAME : NAVEEN AKINS PID : [id number] : 1940 Gender : Male Race : ORD : [id number] Procedure Date : Jan 30 2018 12:42 Edit Date : Jan 30 2018 14:45 Diagnosis:BASELINE ARTIFACT NORMAL SINUS RHYTHM NONSPECIFIC ST AND T WAVE ABNORMALITY ABNORMAL ECG WHEN COMPARED WITH ECG OF 28-JAN-2018 04:32, T WAVE INVERSION NOW EVIDENT IN ANTERIOR LEADS Confirmed by MD Char, Froylan Harding ([id number]) on 01/30/2018 2:45:16 PM Ventricular Rate : 99 BPM Atrial Rate : 99 BPM P-R Interval : 124 ms QRS Duration : 70 ms Q-T Interval : 370 ms QTC Calculation(Bezet) : 474 ms P Dobson : 26 degrees R Dobson : 9 degrees T Dobson : 19 degrees Test Reason : Arrhythmia Location : 3 : [facility] 3233 Overread By : MD Pardo Vinayak A. Editted By : MD Pardo Vinayak A. Referred By : LORA SOLIZ Acquired by : Shira GARZA NUTRITION Observed: 01/30/2018 Status: COMPLETED Source: [place] 12:02 PM CLINIC OTHER CAMPUS REPOSITORY HNO ID: [id number] Author: Viry Mosher RD Service: NST-Nutrition Support [...] values in this interval not displayed. Viry Mosher RD, LD, [facility] Pager: [phone] Increments: 3 PROGRESS Observed: 01/30/2018 Status: COMPLETED Source: [place] 11:45 AM CLINIC OTHER CAMPUS REPOSITORY O ID: [id number] Author: Lora Soliz Service: Critical Care Author [...] verbal attempts. Respiratory/Nursing Documentation: O2 Therapy: Ventilator (01/30/181011) Invasive Ventilator Mode: Continuous Positive Airway Pressure;Pressure Support Ventilation (01/30/181011) Set Ventilator Respiratory Rate (BPM): 14 (01/30/18828) Total Respiratory Rate (BPM): 22 (01/30/181011) Tidal Volume Set (mL): 550 (01/30/18828) Exhaled Tidal Volume (mL): 986 (01/30/182) Minute Volume (L): 14.4 (01/30/181011) Peak Inspiratory Pressure (cm H2O): 15 (01/30/18 101) PEEP/CPAP (cm H2O): 5 (01/30/181011) HEMODYNAMIC DATA: reviewed NUTRITION: tpn 1.5lters Enteral [...] Problem List: Ruptured abdominal aortic aneurysm (AAA) ([facility]) (01/12/2018) DIC (disseminated intravascular coagulation) ([facility]) (01/12/2018) Hemorrhagic shock ([facility]) (01/12/2018) Acute respiratory failure ([facility]) (01/12/2018) Cardiac arrest ([facility]) (01/12/2018) Hypernatremia (01/12/2018) Hypokalemia (01/12/2018) Hypomagnesemia (01/12/2018) Hypophosphatemia (01/12/2018) Hyperchloremia (01/12/2018) Anoxic encephalopathy (HCC) (01/13/2018) AAA (abdominal aortic aneurysm, ruptured) ([facility]) (01/12/2018) Obesity, Class I, BMI 30-34.9 (01/16/2018) AAA rupture with msof, multiple reops, now fascial closure Improving shock Severe anoxic enceph TERENCE on FORENSIC CHEMIST, controlled azotemia Recovered thrombocytopenia Vent dep resp [...] but some [place] periodic breathing due to call manager 2. Tpn at 1700kcal /day, ?low TF; reglan noted (EKG qtc 480) will decrease # 3. Cvvhd; fluid even; remove fluid if off pressors 4. Taper steroids hydrocortisone 25mg 5. merrum 6. Clinical Applications Manager a concern, poor outlook 7. Dc betty [...] Updated No Discussed with Staff Yes, RN, senior climate advisor, pharm D Time spent providing critical care services: 40 minutes excluding billable procedures. SIGNATURE: Lora Soliz MD PATIENT NAME: Naveen Akins DATE: January 30, 2018 TIME: 2:24 pm RENAL PANEL Collected: 01/30/2018 Status: F Source: [facility] 11:00 AM HEALTH SYSTEM REPOSITORY TYPE CODE TESTS [...] Blood 1.0 Performed By: #### RENAL #### [facility] [address] [address] MAGNESIUM BLOOD Collected: 01/30/2018 Status: F Source: [facility] 11:00 AM HEALTH SYSTEM REPOSITORY TYPE CODE TESTS RESULT OUT OF REFERENCE UNITS RANGE LAB MAG(LOINC) 1.6-2.6 mg/dL Magnesium Blood 2.3 Performed By: #### MAG #### [facility] [address] [place] [id number] PROGRESS Observed: 01/30/2018 Status: COMPLETED Source: [place] 9:42 AM [facility] REPOSITORY HNO ID: [id number] Author: Keely TylerRn) MAGALY Young Service: Wound/Ostomy Author Type: Registered Nurse Type: Progress Notes Filed: 01/30/2018 9:45 AM Note Text: WOUND CARE NURSE PROGRESS NOTE SERVICE DATE: 01/30/2018 SERVICE TIME: 839 REASON FOR VISIT: Surgical wound TIME SPENT (minutes): 45 ? Patient seen today rounding senior climate advisor. Wound vac dressing to midline abdomen changed. Applied 3 white, 1 black, 150mmHg, continuous. Wound bed clean. Retention sutures intact. Plan to change wound vac dressing Tuesday02/01/18. ? Documentation from Wound Expert can be found in scanned documents. ? SIGNATURE: Keely Young RN PATIENT NAME: Naveen Akins DATE: January 30, 2018 TIME: 9:42 AM CONTACT#: [id number] PROGRESS Observed: 01/30/2018 Status: COMPLETED Source: [place] 6:31 AM [facility] REPOSITORY HNO ID: [id number] Author: Dionicio Stevens Service: Vascular Surgery Author [...] questions or concerns Mon-Tue 6a-5p please page [phone]. After 5pm and on Weekends and Holidays, please page [phone] if in ICU or [phone] if on RNF. Subjective SUBJECTIVE: NAEON, Ileus [...] Ventilator IANDO: Date 01/29/18699 - 01/30/1865801/30/18699 - 01/31/1859 Shift 7706-2884 5219-0977 0520-5974 24 Hour Total 4123-1621 3851-9285 7014-2549 24 Hour Total I N T A [...] Assessment Gastrostomy) 0 0 Shift Total 793.5 111 225 7823.5 O U T P U T Urine 0 0 0 Void (ml) 0 0 0 Urine Incontinence/Not Saved 1 x 1 x 2 x 4 x Tubes 620 940 408 7471 Drain/Tube Output (Drain/Tube 01/19/18 1015 Midline Abdomen) 15 0 0 15 Drain/Tube Output (Drain/Tube 01/29/18 1909 Assessment Fecal Management System Rectum) 0 0 0 Output (GI Feed/Drain 01/27/18 Assessment Gastrostomy) 605 600 648 3449 Dialysis 500 336 137 973 Dialysis Output (Ultrafiltration) 500 336 137 973 Shift Total 1120 862 513 0993 Weight (kg) 82 82 82 82 82 [...] Noted - Ruptured abdominal aortic aneurysm (AAA) ([facility]) 01/12/2018 - Obesity, Class I, BMI 30-34.9 01/16/2018 - Anoxic encephalopathy ([facility]) 01/13/2018 - DIC (disseminated intravascular coagulation) ([facility]) 01/12/2018 - Hemorrhagic shock ([facility]) 01/12/2018 - Acute respiratory failure ([facility]) 01/12/2018 - Cardiac arrest ([facility]) 01/12/2018 - Hypernatremia 01/12/2018 - Hypokalemia 01/12/2018 - Hypomagnesemia 01/12/2018 - Hypophosphatemia 01/12/2018 - Hyperchloremia 01/12/2018 - AAA (abdominal aortic aneurysm, ruptured) ([facility]) 01/12/2018 Overview Note: Added automatically from request for surgery [id number] 77 year old male with Ruptured AAA [...] questions or concerns Mon-Fri 6a-5p please page [phone]. After 5pm and on Weekends and Holidays, please page [phone] if in ICU or [phone] if on RNF. IONIZED CALCIUM Collected: 01/30/2018 Status: F Source: [facility] 5:55 AM HEALTH SYSTEM REPOSITORY TYPE CODE TESTS RESULT OUT OF REFERENCE UNITS RANGE LAB CAION(LOINC 4.43-4.93 mg/dL ) Low Ionized 3.95 Calcium LAB PHCAI(LOINC 7.320-7.420 ) pH High 7.546 LAB CAPH(LOINC) 4.36-4.73 mg/dL Low Ionized 4.26 Ca,PH7.4 Performed By: #### IONCA #### [facility] [address] [address] HEMOGRAM/DIFF Collected: 01/30/2018 Status: F Source: [facility] 5:55 AM HEALTH SYSTEM REPOSITORY TYPE CODE [...] 0.65 LAB MONON(LOIN 0.30-0.82 thou/cmm C) Abs. Hunt 0.69 LAB EOSN(LOINC 0.04-0.54 thou/cmm ) Low Abs. Eosin 0.01 LAB BASON(LOIN 0.01-0.08 thou/cmm C) Abs. Baso 0.01 Result Comment: Smear scanned; tech agrees with automated differential Performed By: #### CBCD1 #### [place] [address] RENAL PANEL Collected: 01/30/2018 Status: F Source: [facility] 5:55 AM HEALTH SYSTEM REPOSITORY TYPE CODE [...] Blood 1.0 Performed By: #### RENAL #### [place] [address] MAGNESIUM BLOOD Collected: 01/30/2018 Status: F Source: [facility] 5:55 AM HEALTH SYSTEM REPOSITORY TYPE CODE TESTS RESULT OUT OF REFERENCE UNITS RANGE LAB MAG(LOINC) 1.6-2.6 mg/dL Magnesium Blood 2.3 Performed By: #### MAG #### [facility] [address] [address] HEPATIC PANEL Collected: 01/30/2018 Status: F Source: [facility] 5:55 AM HEALTH SYSTEM REPOSITORY TYPE CODE [...] Bilirubin 5.15 Performed By: #### HEPAP #### [facility] [address] [address] CHEST 1 VIEW Observed: 01/30/2018 Status: F Source: [facility] 5:25 AM HEALTH SYSTEM REPOSITORY Performed at [facility] APPROVED BY: Yajaira Veronica MD EXAM TITLE: CHEST 1 VIEW DATE: 01/30/2018 05:21 INDICATION: Dyspnea COMPARISON: 01/29/2018 FINDINGS: Tracheostomy tube and right central venous catheter are stable. There is no visible pneumothorax. Lungs are clear of focal consolidation. The heart is nonenlarged. IMPRESSION: Stable appearance PROGRESS Observed: 01/30/2018 Status: COMPLETED Source: [place] 5:02 AM [facility] REPOSITORY HNO ID: [id number] Author: Roxane TylerRn) Mervin RN Service: Dialysis Author Type: Registered Nurse Type: Progress Notes Filed: 01/30/2018 5:04 AM Note Text: CRRT restarted without problem after rising TMP. Hemosafe device on x 2 with lines reversed. Report given to MAGALY Anaya. Pt stable NURSING PROG Observed: 01/30/2018 Status: COMPLETED Source: [place] 3:54 AM [facility] OTHER [place] REPOSITORY HNO ID: [id number] Author: Trish TylerRn) MAGALY Plasencia Service: (none) Author Type: Registered Nurse Type: Nursing Progress Note Filed: 01/30/2018 3:55 AM Note Text: 0345 pt clotted off dialysis filter, dialysis nurse called at this time to change set up RENAL PANEL Collected: 01/29/2018 Status: F Source: [facility] 11:57 HEALTH SYSTEM REPOSITORY TYPE CODE TESTS RESULT [...] Blood 3.0 Performed By: #### RENAL #### [place] [address] MAGNESIUM BLOOD Collected: 01/29/2018 Status: F Source: [facility] 11:[address] [facility] REPOSITORY TYPE CODE TESTS RESULT OUT OF REFERENCE UNITS RANGE LAB MAG(LOINC) 1.6-2.6 mg/dL Magnesium Blood 2.2 Performed By: #### MAG #### [place] [address] TRIGLYCERIDE BLOOD Collected: 01/29/2018 Status: F Source: [facility] 11:57 HEALTH SYSTEM REPOSITORY TYPE CODE TESTS RESULT OUT OF REFERENCE UNITS RANGE LAB TRIG(LOINC 0-149 mg/dL ) Triglyceride High Blood 432 Result Comment: < 200 Desirable Result invalid if not a fasting specimen. Performed By: #### TRIG #### [place] [address] ALLIED HEALTH Observed: 01/29/2018 Status: COMPLETED Source: [place] 7:15 PM CLINIC OTHER CAMPUS REPOSITORY HNO ID: [id number] Author: Chaplain Will (Chaplain) Service: Spiritual Care Author Type: Crack Off Person Type: Allied Health Filed: 01/29/2018 7:46 PM Note Text: SPIRITUALCARE Spiritual Care Visit- Brief Note Name: Naveen Akins Date: January 29, 2018 Notes: Crack Off Person connected with family in waiting room. Daughter Ruth gave me the update on patient. Prayed for the patient in his room. Crack Off Person Signature: Chaplain Suman To contact the Spiritual Care Department: Please call [phone] or Page the On-Call Crack Off Person at pager [phone] Thank you for the opportunity to be of service. This is an electronically created document. IF PRINTED, PLEASE DO NOT REMOVE FROM THE CHART OR MODIFY PRINTED COPY. HGB Collected: 01/29/2018 Status: F Source: [facility] 5:40 PM HEALTH SYSTEM REPOSITORY TYPE CODE TESTS RESULT OUT OF RANGE REFERENCE UNITS LAB HGBI(LOINC) 13.7-17.5 g/dL Low Hgb 7.9 Performed By: #### HGBI #### [place] [address] HCT Collected: 01/29/2018 Status: F Source: [facility] 5:40 PM HEALTH SYSTEM REPOSITORY TYPE CODE TESTS RESULT OUT OF RANGE REFERENCE UNITS LAB HCTI(LOINC) 40.1-51.0 % Low Hct 24.6 Performed By: #### HCTI #### [place] [address] RENAL PANEL Collected: 01/29/2018 Status: F Source: [facility] 5:40 PM HEALTH SYSTEM REPOSITORY TYPE CODE [...] Blood 1.0 Performed By: #### RENAL #### [facility] [address] [address] MAGNESIUM BLOOD Collected: 01/29/2018 Status: F Source: [facility] 5:40 PM HEALTH SYSTEM REPOSITORY TYPE CODE TESTS RESULT OUT OF REFERENCE UNITS RANGE LAB MAG(LOINC) 1.6-2.6 mg/dL Magnesium Blood 2.3 Performed By: #### MAG #### [facility] [address] [place] [address] ALLIED HEALTH Observed: 01/29/2018 Status: COMPLETED Source: [place] 2:58 PM [facility] OTHER [place] REPOSITORY HNO ID: [id number] Author: Chaplain Alfredo (Chaplain) Service: Spiritual Care Author Type: Crack Off Person Type: Allied Health Filed: 01/29/2018 3:01 PM Note Text: SPIRITUALCARE Spiritual Care Visit- Brief Note Name: Naveen Akins Date: January 29, 2018 Notes: Patient's family stopped Crack Off Person in the hallway and requested prayer for patient. Upon arrival patient was alone and nonverbal. Crack Off Person read scriptures and prayed at beside for patient. Crack Off Person Signature: Chaplain Juni To contact the Spiritual Care Department: Please call [phone] or Page the On-Call Crack Off Person at pager [phone] Thank you for the opportunity to be of service. This is an electronically created document. IF PRINTED, PLEASE DO NOT REMOVE FROM THE CHART OR MODIFY PRINTED COPY. PROGRESS Observed: 01/29/2018 Status: COMPLETED Source: [place] 2:26 PM CLINIC OTHER [place] REPOSITORY HNO ID: [id number] Author: Adriane Carvalho Service: Critical Care Author [...] -- 01/12/18 0630 vte pharmacologic prophylaxis contraindicated (mi,ar) 01/12/18 0630 pneumatic compression stockings [facility] STAFF PHYSICIAN NOTE OF PERSONAL INVOLVEMENT IN CARE Patient/Family Updated: family has been updated regarding the goals of care, medical plan for the day, quality assurance consultant recommendations, medical disposition and current medical [...] 29, 2018 TIME: 2:26 PM PAGER/CONTACT #: [phone] PROGRESS Observed: 01/29/2018 Status: COMPLETED Source: [place] 1:54 PM [facility] OTHER CAMPUS REPOSITORY O ID: [id number] Author: Paulo Lovelace (Cns) Service: Critical Care [...] HEMODYNAMIC DATA: Reviewed NUTRITION: Enteral Feeds: Off 2/2 probable GI Bleeding NPO DATA: Diagnostic tests [...] fluid which appeared to be dark blood-surgical nurse practitioner notified-stat Hgb is 8 GM-recheck at 6pm [...] 40 minutes excluding procedures. SIGNATURE: Paulo Lovelace APRN.CHAIR INSPECTOR PATIENT NAME: Naveen Akins DATE: January 29, 2018 TIME: 1:55 PM HEMOGRAM/DIFF Collected: 01/29/2018 Status: F Source: [facility] 1:15 PM HEALTH SYSTEM REPOSITORY TYPE [...] 0.76 LAB MONON(LOIN 0.30-0.82 thou/cmm C) Abs. Hunt 0.70 LAB EOSN(LOINC 0.04-0.54 thou/cmm ) Low Abs. Eosin 0.01 LAB BASON(LOIN 0.01-0.08 thou/cmm C) Abs. Baso 0.03 Result Comment: Smear scanned; tech agrees with automated differential Performed By: #### CBCD1 #### [facility] [address] [address] PROGRESS Observed: 01/29/2018 Status: COMPLETED Source: [place] 12:10 PM CLINIC OTHER CAMPUS REPOSITORY HNO ID: [id number] Author: Dorcas Palafox Service: Critical Care Author [...] Gallstone Pancreatitis Ruptured Abdominal Aortic Aneurysm (Aaa) ([facility]) Dic (Disseminated Intravascular Coagulation) ([facility]) Hemorrhagic Shock ([facility]) Acute Respiratory Failure (Hcc) Cardiac Arrest ([facility]) Hypernatremia Hypokalemia Hypomagnesemia Hypophosphatemia Hyperchloremia Anoxic Encephalopathy ([facility]) Aaa (Abdominal Aortic Aneurysm, Ruptured) ([facility]) Obesity, Class I, Bmi 30-34.9 1. VDRF [...] 29, 2018 TIME: 12:10 PM PAGER/CONTACT #: [phone] RENAL PANEL Collected: 01/29/2018 Status: F Source: [facility] 11:40 AM HEALTH SYSTEM REPOSITORY TYPE CODE [...] Blood 4.2 Performed By: #### RENAL #### [facility] [address] [place], [place] [address] MAGNESIUM BLOOD Collected: 01/29/2018 Status: F Source: [facility] 11:40 AM HEALTH SYSTEM REPOSITORY TYPE CODE TESTS RESULT OUT OF REFERENCE UNITS RANGE LAB MAG(LOINC) 1.6-2.6 mg/dL Magnesium Blood 2.4 Performed By: #### MAG #### [facility] [address] [address] PROGRESS Observed: 01/29/2018 Status: COMPLETED Source: [place] 9:32 AM CLINIC OTHER CAMPUS REPOSITORY O ID: [id number] Author: Shen Lorenzo Service: Nephrology Author Type: [...] 8 H Dorcas Palafox 10 mg at 01/29/18 0624 prismaSOL BGK 4 K / 2.5 mEq Ca/Liter 5,000 mL 5,000 mL HEMODIALYSIS continuous (no dispense) Venkat Paniagua 5,000 mL at 01/28/18 2048 prismaSOL BGK 4 K / 2.5 mEq Ca/Liter 5,000 mL 5,000 mL HEMODIALYSIS continuous (no dispense) Venkat Paniagua 5,000 mL at 01/28/182047 prismaSOL BGK 4 K / 2.5 mEq Ca/Liter 5,000 mL 5,000 mL HEMODIALYSIS continuous (no dispense) Venkat Paniagua 5,000 mL at 01/28/182047 hydrocortisone sodium succinate (PF) 50 mg injection (Solu- CORTEF) 50 mg INTRAVENOUS q 8 H Dorcas Mike Decoy 50 mg at 01/29/18 0624 meropenem 500 mg in NaCl 0.9% 100 mL MB+ (MERREM) 500 mg INTRAVENOUS q 8 H Dorcas Mike Decoy Last Rate: 200 mL/hr at 01/29/18 0624 500 mg at 01/29/18 0624 ipratropium-albuterol 3 mL nebulizer solution (DUONEB) [...] injection (PROTONIX) 40 mg INTRAVENOUS BID AC (06/1600) Jocelynn (Res) Robson 40 mg at 01/29/18 [...] 1 Drop BOTH EYES QID PRN Paulo (Clinical Applications Manager) Radu 1 Drop at 01/26/18 1724 heparin [...] do not hesitate to contact me at [phone] if there is any question or concern. Rosanna Talbert MD (Shen Lorenzo) ABDOMEN 1 VIEW Observed: 01/29/2018 Status: F Source: [facility] 9:09 AM HEALTH SYSTEM REPOSITORY Performed at [facility] APPROVED BY: GILBERT NAVARRO MD ABDOMEN, 1 VIEW. CLINICAL INFORMATION: Nausea and vomiting TECHNIQUE: Supine abdomen, 1 image(s) COMPARISON: 01/21/2018 RESULT: G-tube in the LEFT upper quadrant. Right femoral catheter in place. Multiple paraspinal surgical clips. Bowel loops are normal caliber. Degenerative changes in the spine. No pathologic calcifications. IMPRESSION: NO ACUTE ABNORMALITY PROGRESS Observed: 01/29/2018 Status: COMPLETED Source: [place] 9:06 AM [facility] OTHER CAMPUS REPOSITORY HNO ID: [id number] Author: Braxton Sloan MD Service: Vascular Surgery [...] 27.49 kg/m? O2 Therapy: Ventilator IANDO: Date 01/28/18699 - 01/29/1865801/29/18699 - 01/30/18 0659 Shift 3147-8743 3014-8358 2185-8474 24 Hour Total 2485-7805 5532-4260 1325-9511 24 Hour Total I N T A [...] BMs 3 x 3 x Dialysis 684 603 858 5062 49 49 Dialysis Output (Ultrafiltration) 684 628 797 7028 49 49 Shift Total 684 536 264 6719 49 49 Weight (kg) 82 82 82 [...] Noted - Ruptured abdominal aortic aneurysm (AAA) ([facility]) 01/12/2018 - Obesity, Class I, BMI 30-34.9 01/16/2018 - Anoxic encephalopathy ([facility]) 01/13/2018 Assessment AND Plan Note: S/p AAA repair and cardiac arrest ., anoxic encephalopathy Lack of I improvement Is concerning suspect he may have suffered anoxic encephalopathy exam is limited. Need to continue supportive care Likely he may need dependant care MRI brain will Help to add further prognostic value - DIC (disseminated intravascular coagulation) ([facility]) 01/12/2018 - Hemorrhagic shock ([facility]) 01/12/2018 - Acute respiratory failure ([facility]) 01/12/2018 - Cardiac arrest ([facility]) 01/12/2018 - Hypernatremia 01/12/2018 - Hypokalemia 01/12/2018 - Hypomagnesemia 01/12/2018 - Hypophosphatemia 01/12/2018 - Hyperchloremia 01/12/2018 - AAA (abdominal aortic aneurysm, ruptured) ([facility]) 01/12/2018 Overview Note: Added automatically from request for surgery [id number] 77 year old male with Ruptured AAA [...] January 29, 2018 TIME: 9:06 AM Pager: [phone] HEMOGRAM/DIFF Collected: 01/29/2018 Status: F Source: [facility] 6:45 AM HEALTH SYSTEM REPOSITORY TYPE CODE [...] 0.76 LAB MONON(LOIN 0.30-0.82 thou/cmm C) Abs. Hunt 0.61 LAB EOSN(LOINC 0.04-0.54 thou/cmm ) Low Abs. Eosin 0.02 LAB BASON(LOIN 0.01-0.08 thou/cmm C) Abs. Baso 0.01 Result Comment: Smear scanned; tech agrees with automated differential Performed By: #### CBCD1 #### [address] [address] IONIZED CALCIUM Collected: 01/29/2018 Status: F Source: [facility] 6:45 AM HEALTH SYSTEM REPOSITORY TYPE CODE TESTS RESULT OUT OF REFERENCE UNITS RANGE LAB CAION(LOINC 4.43-4.93 mg/dL ) Low Ionized 3.96 Calcium LAB PHCAI(LOINC 7.320-7.420 ) pH High 7.519 LAB CAPH(LOINC) 4.36-4.73 mg/dL Low Ionized 4.21 Ca,PH7.4 Performed By: #### IONCA #### [address] [address] RENAL PANEL Collected: 01/29/2018 Status: F Source: [facility] 6:45 AM HEALTH SYSTEM REPOSITORY TYPE CODE [...] Blood 1.0 Performed By: #### RENAL #### [place] [address] MAGNESIUM BLOOD Collected: 01/29/2018 Status: F Source: [facility] 6:45 AM HEALTH SYSTEM REPOSITORY TYPE CODE TESTS RESULT OUT OF REFERENCE UNITS RANGE LAB MAG(LOINC) 1.6-2.6 mg/dL Magnesium Blood 2.4 Performed By: #### MAG #### [place] [address] PHOSPHORUS BLOOD Collected: 01/29/2018 Status: F Source: [facility] 6:45 AM HEALTH SYSTEM REPOSITORY TYPE CODE TESTS RESULT OUT OF REFERENCE UNITS RANGE LAB PHOS(LOINC 2.5-4.9 mg/dL ) Phosphorus Blood 3.6 Performed By: #### PHOS #### [place] [address] CHEST 1 VIEW Observed: 01/29/2018 Status: F Source: [facility] 6:16 AM HEALTH SYSTEM REPOSITORY Performed at [facility] APPROVED BY: Bernardino Lewis MD EXAM TITLE: [...] NURSING PROG Observed: 01/29/2018 Status: COMPLETED Source: [place] 1:36 AM [facility] OTHER CAMPUS REPOSITORY HNO ID: [id number] Author: Kannan (Rn) MAGALY Montoya Service: Nursing Author Type: Registered Nurse Type: Nursing Progress Note Filed: 01/29/2018 1:38 AM Note Text: Dr. Katia Sesay spoken to regarding patient having emesis, larger gastric residual. Noted that Tube feed has been off since initial assessment at 19:30. Peg tube clamped per Dr. Sesay's direction. RENAL PANEL Collected: 01/29/2018 Status: F Source: [facility] 12:54 AM HEALTH SYSTEM REPOSITORY TYPE CODE [...] RESULT RECHECKED Performed By: #### RENAL #### [facility] [address] [place] [address] MAGNESIUM BLOOD Collected: 01/29/2018 Status: F Source: [facility] 12:54 AM HEALTH SYSTEM REPOSITORY TYPE CODE TESTS RESULT OUT OF REFERENCE UNITS RANGE LAB MAG(LOINC) 1.6-2.6 mg/dL Magnesium Blood 2.4 Performed By: #### MAG #### [facility] [address] [place] [address] RENAL PANEL Collected: 01/28/2018 Status: F Source: [facility] 6:20 PM HEALTH SYSTEM REPOSITORY TYPE CODE [...] Blood 1.0 Performed By: #### RENAL #### [facility] [address] [place] [address] MAGNESIUM BLOOD Collected: 01/28/2018 Status: F Source: [facility] 6:20 PM HEALTH SYSTEM REPOSITORY TYPE CODE TESTS RESULT OUT OF REFERENCE UNITS RANGE LAB MAG(LOINC) 1.6-2.6 mg/dL Magnesium Blood 2.3 Performed By: #### MAG #### [facility] [address] [address] NURSING PROG Observed: 01/28/2018 Status: COMPLETED Source: [place] 6:04 PM [facility] REPOSITORY HNO ID: [id number] Author: Araceli TylerRn) MAGALY Elam Service: Dialysis Author Type: Registered [...] GAS ARTERIAL Collected: 01/28/2018 Status: F Source: [facility] 1:05 PM HEALTH SYSTEM REPOSITORY TYPE CODE [...] FIO2 40 Performed By: #### ABG #### [place] [address] CASE MANAGEM Observed: 01/28/2018 Status: COMPLETED Source: [place] 1:04 PM [facility] REPOSITORY HNO ID: [id number] Author: Alvina TylerRn) MAGALY Noonan Service: Care Management Author Type: [...] 28, 2018 TIME: 1:04 PM PAGER/CONTACT #: [phone] RENAL PANEL Collected: 01/28/2018 Status: F Source: [facility] 12:50 PM HEALTH SYSTEM REPOSITORY TYPE CODE [...] Blood 1.0 Performed By: #### RENAL #### [place] [address] MAGNESIUM BLOOD Collected: 01/28/2018 Status: F Source: [facility] 12:50 PM [facility] SYSTEM REPOSITORY TYPE CODE TESTS RESULT OUT OF REFERENCE UNITS RANGE LAB MAG(LOINC) 1.6-2.6 mg/dL Magnesium Blood 2.3 Performed By: #### MAG #### [place] [address] PROGRESS Observed: 01/28/2018 Status: COMPLETED Source: [place] 11:54 AM CLINIC OTHER CAMPUS REPOSITORY O ID: [id number] Author: Dorcas Palafox Service: Critical Care Author [...] 28, 2018 TIME: 11:54 AM PAGER/CONTACT #: [phone] PROGRESS Observed: 01/28/2018 Status: COMPLETED Source: [place] 10:34 AM [facility] OTHER CAMPUS REPOSITORY O ID: [id number] Author: Adriane Carvalho Service: Critical Care Author Type: Physician Type: Progress Notes Filed: 01/28/2018 10:41 AM Note Text: Naveen Akins [id number] NEURO ICU - CONSULT PROGRESS NOTE SERVICE [...] -- 01/12/18 0630 vte pharmacologic prophylaxis contraindicated (mi,oh) 01/12/18 0630 pneumatic compression stockings (mi,ar) VTE Prophylaxis: VTE prophylaxis appropriate Assessment/Plan Neurology Anoxic encephalopathy (HCC) S/p AAA repair and cardiac arrest ., anoxic encephalopathy Lack of I improvement Is concerning suspect he may have suffered anoxic encephalopathy exam is limited. Need to continue supportive care Likely he may need dependant care MRI brain will Help to add further prognostic value [facility] STAFF PHYSICIAN NOTE OF PERSONAL INVOLVEMENT IN [...] 28, 2018 TIME: 10:34 AM PAGER/CONTACT #: [phone] PROGRESS Observed: 01/28/2018 Status: COMPLETED Source: [place] 10:32 AM [facility] REPOSITORY O ID: [id number] Author: Shen Lorenzo Service: Nephrology Author Type: [...] 500 mg INTRAVENOUS q 8 H Dorcas Mike Decoy Last Rate: 200 mL/hr at 01/28/18 0515 500 mg at 01/28/18 0515 ipratropium-albuterol 3 mL nebulizer solution (DUONEB) 3 mL INHALATION q 4 H Dorcas Mike Decoy 3 mL at 01/28/18 0909 budesonide [...] 1 Drop BOTH EYES QID PRN Paulo (Clinical Applications Manager) Radu 1 Drop at 01/26/18 1724 heparin [...] 5,000 mL HEMODIALYSIS continuous (no dispense) Troy Belleari Last Rate: 800 mL/hr at 01/26/18 2000 5,000 mL at 01/27/18 0517 prismaSOL BGK 4 K / 2.5 mEq Ca/Liter 5,000 mL 5,000 mL HEMODIALYSIS continuous (no dispense) Troy Belleari Last Rate: 800 mL/hr at 01/26/181999 5,000 mL at 01/27/18 0517 prismaSOL BGK 4 K / 2.5 mEq Ca/Liter 5,000 mL 5,000 mL HEMODIALYSIS continuous (no dispense) Troy Belleari Last Rate: 800 mL/hr at 01/26/18 2000 5,000 mL at 01/27/18 0517 dextrose 40 [...] 12 H Elder Granda 15 mL at 01/28/18 0942 No current [...] do not hesitate to contact me at [phone] if there is any question or concern. Rosanna Talbert MD (Shen Lorenzo) PROGRESS Observed: 01/28/2018 Status: COMPLETED Source: [place] 9:14 AM CLINIC OTHER CAMPUS REPOSITORY HNO ID: [id number] Author: Kannan (Edenilson) Emerita Service: General Surgery Author Type: Resident Type: Progress Notes Filed: 01/28/2018 9:22 AM Note Text: PROGRESS NOTE EGS Surgery Progress Note Emergency General Surgery Service Pager: For questions or concerns Mon-Fri 6a-5p please page [phone]. After 5pm and on Weekends and Holidays, please page [phone] if in ICU or [phone] if on RNF. SERVICE DATE: 01/28/2018 SERVICE [...] (97.2 ?F), Max:37 ?C (98.6 ?F) Date 01/27/18 0700 - 01/28/18 0659 01/28/18 0700 - 01/29/18 0659 Shift 2485-9082 3339-8101 5525-9213 24 Hour Total 3600-9193 6131-6530 3135-8635 24 Hour Total I N T A [...] 140 882 102 102 Shift Total 215 5489 228 3550 102 102 Weight (kg) 82.2 82.2 82 [...] Noted - Ruptured abdominal aortic aneurysm (AAA) ([facility]) 01/12/2018 - Obesity, Class I, BMI 30-34.9 01/16/2018 - Encephalopathy 01/13/2018 - DIC (disseminated intravascular coagulation) ([facility]) 01/12/2018 - Hemorrhagic shock ([facility]) 01/12/2018 - Acute respiratory failure ([facility]) 01/12/2018 - Cardiac arrest ([facility]) 01/12/2018 - Hypernatremia 01/12/2018 - Hypokalemia 01/12/2018 - Hypomagnesemia 01/12/2018 - Hypophosphatemia 01/12/2018 - Hyperchloremia 01/12/2018 - AAA (abdominal aortic aneurysm, ruptured) ([facility]) 01/12/2018 Overview Note: Added automatically from request for surgery [id number] Assessment/Plan 77 year old male with Ruptured [...] January 28, 2018 TIME: 9:14 AM PAGER: [phone] PROGRESS Observed: 01/28/2018 Status: COMPLETED Source: [place] 8:45 AM [facility]AMP[facility] REPOSITORY O ID: [id number] Author: Braxton Sloan MD Service: Vascular Surgery [...] 27.49 kg/m? O2 Therapy: Ventilator IANDO: Date 01/27/18 07 - 01/28/18 0659 01/28/18 07 - 01/29/18 0659 Shift 7560-8296 0358-9445 9926-8762 24 Hour Total 1848-3741 5306-6707 1534-7381 24 Hour Total I N T A [...] 140 882 102 102 Shift Total 215 7876 411 3982 102 102 Weight (kg) 82.2 82.2 82 [...] Noted - Ruptured abdominal aortic aneurysm (AAA) ([facility]) 01/12/2018 - Obesity, Class I, BMI 30-34.9 01/16/2018 - Encephalopathy 01/13/2018 - DIC (disseminated intravascular coagulation) ([facility]) 01/12/2018 - Hemorrhagic shock ([facility]) 01/12/2018 - Acute respiratory failure ([facility]) 01/12/2018 - Cardiac arrest ([facility]) 01/12/2018 - Hypernatremia 01/12/2018 - Hypokalemia 01/12/2018 - Hypomagnesemia 01/12/2018 - Hypophosphatemia 01/12/2018 - Hyperchloremia 01/12/2018 - AAA (abdominal aortic aneurysm, ruptured) ([facility]) 01/12/2018 Overview Note: Added automatically from request for surgery [id number] 77 year old male with Ruptured AAA [...] January 28, 2018 TIME: 8:45 AM Pager: [phone] CHEST 1 VIEW Observed: 01/28/2018 Status: F Source: [facility] 5:51 AM HEALTH SYSTEM REPOSITORY Performed at [facility] APPROVED BY: Bernardino Lewis MD EXAM TITLE: [...] IONIZED CALCIUM Collected: 01/28/2018 Status: F Source: [facility] 5:00 AM HEALTH SYSTEM REPOSITORY TYPE CODE TESTS RESULT OUT OF REFERENCE UNITS RANGE LAB CAION(LOINC 4.43-4.93 mg/dL ) Low Ionized 4.14 Calcium LAB PHCAI(LOINC 7.320-7.420 ) pH High 7.455 LAB CAPH(LOINC) 4.36-4.73 mg/dL Low Ionized 4.25 Ca,PH7.4 Performed By: #### IONCA #### [facility] [address] [address] HEMOGRAM/DIFF Collected: 01/28/2018 Status: F Source: [facility] 5:00 AM HEALTH SYSTEM REPOSITORY TYPE CODE [...] 0.49 LAB MONON(LOIN 0.30-0.82 thou/cmm C) Abs. Hunt 0.36 LAB EOSN(LOINC 0.04-0.54 thou/cmm ) Low Abs. Eosin 0.01 LAB BASON(LOIN 0.01-0.08 thou/cmm C) Abs. Baso 0.01 Result Comment: Smear scanned; tech agrees with automated differential Performed By: #### CBCD1 #### [place] [address] HEPATIC PANEL Collected: 01/28/2018 Status: F Source: [facility] 5:00 HEALTH SYSTEM REPOSITORY TYPE CODE TESTS [...] Blood 1.0 Performed By: #### HEPAP #### [place] [address] RENAL PANEL Collected: 01/28/2018 Status: F Source: [facility] 5:00 AM HEALTH SYSTEM REPOSITORY TYPE CODE [...] Blood 2.7 Performed By: #### RENAL #### [facility] [address] [id number] EKG (AK,AV,EU,FV,HL,CYNTHIA,MM,SP) Observed: Status: F Source: [place] 01/28/2018 4:32 AM [facility] OTHER CAMPUS REPOSITORY NAME : NAVEEN AKINS PID : [id number] : 1940 Gender : Male Race : ORD : [id number] Procedure Date : Jan 28 2018 04:32 [...] ms QTC Calculation(Bezet) : 461 ms P Dobson : -26 degrees R Dobson : -1 degrees T Dobson : 45 degrees Test Reason : Check QT Location : 3 : [place] [address] Overread By : MD Pardo Vinayak A. Editted By : MD Pardo Vinayak A. Referred By : PAULO LOVELACE Acquired by : Xuan Warner OPERATIVE NO Observed: 01/27/2018 Status: COMPLETED Source: [place] 9:50 PM [facility] REPOSITORY HNO ID: [id number] Author: Ashu Menezes Service: General Surgery Author Type: Physician Type: Operative Report Filed: 02/08/2018 6:41 AM Note Text: Operative Note: ? LOG ID: [id number] SURGERY/PROCEDURE DATE: 01/27/2018 INCISION/PROCEDURE START TIME: 12:59 PM INCISION CLOSE/PROCEDURE END TIME: 2:17 PM ? SURGEON(S)/PROCEDURALIST(S) AND REGISTERED ROUTE ASSOCIATE(S): Surgeon(s) and Role: Panel 2: * Ashu Menezes - Primary * Darrell (Res) DO Corby - Assisting Digital Technician: Hailey () SA Zack; Sherrill () SA Anjali ? SURGERY/PROCEDURE(S): percutaneous endoscopic gastrostomy tube placement ? ANESTHESIA: General ? FINDINGS: diffuse gastritis and esophagitis, no discrete ulcer, 20 Monegasque gastrostomy tube placed to 4 cm at [...] endoscopic gastrostomy tube. Patient and/or Power of admitted attorneys was consented for the risks, benefits, and [...] all instrument and sponge counts were correct I, Ashu Menezes MD, staff surgeon, was present and participated in the entire procedure. Ashu Menzees MD Department of General Surgery Section of Trauma, Surgery Critical Care, and Acute Care Surgery RENAL PANEL Collected: 01/27/2018 Status: F Source: [facility] 5:20 PM [facility] SYSTEM REPOSITORY TYPE CODE TESTS RESULT [...] Blood 3.7 Performed By: #### RENAL #### [facility] [address] [address] MAGNESIUM BLOOD Collected: 01/27/2018 Status: F Source: [facility] 5:20 PM [facility] REPOSITORY TYPE CODE TESTS RESULT OUT OF REFERENCE UNITS RANGE LAB MAG(LOINC) 1.6-2.6 mg/dL Magnesium Blood 2.4 Performed By: #### MAG #### [facility] [address] [address] NURSING PROG Observed: 01/27/2018 Status: COMPLETED Source: [place] 3:30 PM CLINIC OTHER CAMPUS REPOSITORY HNO ID: [id number] Author: Traci Delvalle (Rn) MAGALY Oconnell Service: [...] ANES POST Observed: 01/27/2018 Status: COMPLETED Source: [place] 3:15 PM [facility] REPOSITORY HNO ID: [id number] Author: Tim Menon Service: Anesthesiology Author Type: [...] 27, 2018 TIME: 3:16 PM PAGER/CONTACT #: [phone] BRIEF OP NOT Observed: 01/27/2018 Status: COMPLETED Source: [place] 2:50 PM [facility] REPOSITORY HNO ID: [id number] Author: Simi Cox Service: Vascular Surgery Author Type: Physician Type: Brief Op Note Filed: 01/27/2018 2:55 PM Note Text: VASCULAR SURGERY BRIEF OPERATIVE NOTE Surgery/Procedure Date: 01/27/2018 Incision/Procedure Start Time: 12:59 PM Incision Close/Procedure End Time: 2:17 PM [facility] [id number] 77 y/o Preop Diagnosis (Diagnosis Codes): Pre-Op Diagnosis Codes: * AAA (abdominal aortic aneurysm, ruptured) ([facility]) [I71.3] Failure to wean from ventilator Postop Diagnosis: Same Procedure(s): tracheostomy, 8 fr Primary Surgeon(s): Simi Cox MD Thoracic and Vascular Surgery Beeper# [phone] [place] Department Manager(s): SA KE TAY MD Anesthesia: General Estimated Blood Loss: 15 cc Fluids: 100 cc crystalloid Urine Output: NOT RECORDED, MINIMAL cc Specimens Removed: None Drains: None Complications: None Findings: THYROID INFLAMMATION, MARKEDLY ADHERENT TO TRACHEA SIGNATURE: Simi Cox MD PATIENT NAME: Naveen Akins DATE: January 27, 2018 TIME: 2:50 PM @ORCPT@ BRIEF OP NOT Observed: 01/27/2018 Status: COMPLETED Source: [place] 2:35 PM [facility]AMP[facility] REPOSITORY O ID: [id number] Author: Ashu Menezes Service: General Surgery Author Type: Physician Type: Brief Op Note Filed: 01/28/2018 5:25 PM Note Text: BRIEF OPERATIVE / PROCEDURE NOTE LOG ID: [id number] SURGERY/PROCEDURE DATE: 01/27/2018 INCISION/PROCEDURE START TIME: 12:59 PM INCISION CLOSE/PROCEDURE END TIME: 2:17 PM SURGEON(S)/PROCEDURALIST(S) AND REGISTERED ROUTE ASSOCIATE(S): Surgeon(s) and Role: Panel 1: * Simi Cox - Primary Panel 2: * Ashu Menezes - Primary * Darrell (Luther Tavarez DO - Assisting Digital Technician: BERNARD Tay Sa, Sa, SA SURGERY/PROCEDURE(S): Tracheostomy, percutaneous endoscopic gastrostomy tube placement ANESTHESIA: General FINDINGS: diffuse gastritis and esophagitis, no discrete ulcer, 20 Monegasque gastrostomy tube placed to 4 cm at the skin ESTIMATED BLOOD LOSS: 20 mls SPECIMENS: None COMPLICATIONS: None PRE-OP/PRE-PROCEDURE DIAGNOSIS: Dysphagia, AAA (abdominal aortic aneurysm, ruptured) (HCC) [I71.3] POST-OP/POST-PROCEDURE DIAGNOSIS: dysphagia, AAA (abdominal aortic aneurysm, ruptured) (HCC) [I71.3] SIGNATURE: Darrell Tavarez DO PATIENT NAME: Naveen Akins DATE: January 27, 2018 TIME: 2:35 PM PAGER/CONTACT #: [phone] [facility] Operative Staff Addendum I was present and participated in the entire procedure. Ashu Menezes MD ANEConor PREOP Observed: 01/27/2018 Status: COMPLETED Source: [place] 1:33 PM [facility] REPOSITORY HNO ID: [id number] Author: Derian Barlow Service: Anesthesiology Author Type: [...] 97/52 Pulse: 101 100 100 98 Resp: 16 Temp: 36.7 ?C (98.1 ?F) TempSrc: SpO2: 99% 98% 99% 99% Weight: Height: ACTIVE PROBLEM LIST Gallstone Pancreatitis Ruptured Abdominal Aortic Aneurysm (Aaa) (Hcc) Dic (Disseminated Intravascular Coagulation) (Hcc) Hemorrhagic Shock (Hcc) Acute Respiratory Failure (Hcc) Cardiac Arrest (Hcc) Hypernatremia Hypokalemia Hypomagnesemia Hypophosphatemia Hyperchloremia Encephalopathy Aaa (Abdominal Aortic Aneurysm, Ruptured) ([facility]) Obesity, Class I, Bmi 30-34.9 PAST MEDICAL [...] INHALATION BID Dorcas Palafox 0.5 mg at 01/27/18 0746 [MAR Hold due to Transfer] metoclopramide HCl 5 mg injection (REGLAN) 5 mg INTRAVENOUS q 6 H Dorcas Mike Decoy 5 mg at 01/27/18 1117 [MAR Hold due to Transfer] pantoprazole 40 mg injection (PROTONIX) 40 mg INTRAVENOUS BID AC (06/1600) Jocelynn (Res) Robson 40 mg at 01/27/18 0517 [MAR Hold due to Transfer] midazolam 100 mg in D5W 100 mL (VERSED) 1-10 mg/hr INTRAVENOUS CONTINUOUS Dorcas Mike Decoy Last Rate: 5 mL/hr at 01/27/18 0700 5 mg/hr at 01/27/18 0700 [MAR Hold due to Transfer] docusate sodium oral liquid 100 mg/10 mL (DIOCTO,COLACE) 100 mg OROGASTRIC BID Dorcas Mike Decoy 100 mg at 01/26/182199 [MAR Hold due to Transfer] senna leaf extract 176 mg/5 mL 528 mg 15 mL OROGASTRIC BID Dionicio (Res) Stevens 528 mg at 01/26/182199 [MAR Hold due to Transfer] carboxymethylcellulose sodium 1- 2 Drop (CELLUVISC) 1-2 Drop BOTH EYES PRN Venkat Paniagua 2 Drop at 01/26/18 1625 [MAR Hold due to Transfer] polyvinyl alcohol-povidone 1.4- 0.6 % 1 Drop (REFRESH) 1 Drop BOTH EYES QID PRN Paulo (Clinical Applications Manager) Radu 1 Drop at 01/26/18 1724 [MAR [...] Shen Lorenzo Last Rate: 800 mL/hr at 08/23/18 2000 5,000 mL at 01/27/18 0517 [MAR Hold due to Transfer] prismaSOL BGK 4 K / 2.5 mEq Ca/Liter 5,000 mL 5,000 mL HEMODIALYSIS continuous (no dispense) Shen Lorenzo Last Rate: 800 mL/hr at 01/26/181999 5,000 mL at 01/27/18 0517 [MAR Hold due to Transfer] prismaSOL BGK 4 K / 2.5 mEq Ca/Liter 5,000 mL 5,000 mL HEMODIALYSIS continuous (no dispense) Shen Lorenzo Last Rate: 800 mL/hr at 01/26/181999 5,000 mL at 01/27/18 0517 [MAR Hold [...] SIGNATURE: Derian Barlow MD PATIENT NAME: Naveen kAins DATE: January 27, 2018 TIME: 1:33 PM CSN: [id number] NUTRITION Observed: 01/27/2018 Status: COMPLETED Source: [place] 11:39 AM [facility] REPOSITORY [facility] ID: [id number] Author: Viry Mosher RD Service: NST-Nutrition Support [...] 1050 PREALB 17.0* Viry Mosher RD, LD, [facility] Pager: [phone] Increments: 3 PROGRESS Observed: 01/27/2018 Status: COMPLETED Source: [place] 11:25 AM CLINIC OTHER CAMPUS REPOSITORY HNO ID: [id number] Author: Troy Godoy Service: Nephrology Author Type: [...] levophed PROGRESS Observed: 01/27/2018 Status: COMPLETED Source: [place] 11:04 AM [facility] REPOSITORY [facility] ID: [id number] Author: Paulo Dial) Radu Service: Critical Care [...] Neurologic: Unresponsive Respiratory/Nursing Documentation: O2 Therapy: Ventilator (01/27/181054) Invasive Ventilator Mode: Pressure Regulated Volume Control (01/27/181054) Set Ventilator Respiratory Rate (BPM): 18 (01/27/18 105) Total Respiratory Rate (BPM): 23 (01/27/181054) Tidal Volume Set (mL): 480 (01/27/181054) Exhaled Tidal Volume (mL): 514 (01/27/181054) Minute Volume (L): 8.8 (01/27/181054) Peak Inspiratory Pressure (cm H2O): 14 (01/27/181054) PEEP/CPAP (cm H2O): 5 (01/27/181054) HEMODYNAMIC DATA: Reviewed NUTRITION: Enteral Feeds: TPN [...] 40 minutes excluding procedures. SIGNATURE: Paulo Lovelace APRN.CHAIR INSPECTOR PATIENT NAME: Naveen Akins DATE: January 27, 2018 TIME: 11:04 AM NURSING PROG Observed: 01/27/2018 Status: COMPLETED Source: [place] 10:58 AM CLINIC OTHER CAMPUS REPOSITORY O ID: [id number] Author: Janell (Rn) MAGALY Fabian Service: Nursing Author Type: Registered Nurse Type: Nursing Progress Note Filed: 01/27/2018 1:01 PM Note Text: Nursing Progress Note Patient Name: Naveen Akins Patient Location: [id number]/[id number]* Daily Note:0845: Pre-surg nurse called for report [...] RN PROGRESS Observed: 01/27/2018 Status: COMPLETED Source: [place] 10:55 AM CLINIC OTHER CAMPUS REPOSITORY HNO ID: [id number] Author: Dorcas Palafox Service: Critical Care Author [...] Fluid cx negative from 01/20 CXR FINDINGS: 8/24: Multiple wires and tubes overlie the chest. [...] Gallstone Pancreatitis Ruptured Abdominal Aortic Aneurysm (Aaa) ([facility]) Dic (Disseminated Intravascular Coagulation) ([facility]) Hemorrhagic Shock ([facility]) Acute Respiratory Failure ([facility]) Cardiac Arrest ([facility]) Hypernatremia Hypokalemia Hypomagnesemia Hypophosphatemia Hyperchloremia Encephalopathy Aaa (Abdominal Aortic Aneurysm, Ruptured) ([facility]) Obesity, Class I, Bmi 30-34.9 1. Hypoxic [...] 27, 2018 TIME: 10:56 AM PAGER/CONTACT #: [phone] RENAL PANEL Collected: 01/27/2018 Status: F Source: [facility] 10:50 AM [facility] REPOSITORY TYPE CODE TESTS RESULT [...] Blood 3.1 Performed By: #### RENAL #### [place] [address] MAGNESIUM BLOOD Collected: 01/27/2018 Status: F Source: [facility] 10:50 AM [facility] REPOSITORY TYPE CODE TESTS RESULT OUT OF REFERENCE UNITS RANGE LAB MAG(LOINC) 1.6-2.6 mg/dL Magnesium Blood 2.4 Performed By: #### MAG #### [place] [address] CASE MANAGEM Observed: 01/27/2018 Status: COMPLETED Source: [place] 10:33 AM CLINIC OTHER CAMPUS REPOSITORY HNO ID: [id number] Author: Lupe TylerRn) MAGALY Cheng Service: Care [...] 27, 2018 TIME: 10:34 AM PAGER/CONTACT #: [phone] PROGRESS Observed: 01/27/2018 Status: COMPLETED Source: [place] 9:40 AM [facility] [place] REPOSITORY HNO ID: [id number] Author: Abbi (Rn) MAGALY Mtz Service: Wound Care Team Author Type: Registered Nurse Type: Progress Notes Filed: 01/27/2018 10:03 AM Note Text: WOUND CARE NURSE PROGRESS NOTE SERVICE DATE: 01/27/2018 SERVICE TIME: 0940 REASON FOR VISIT: Wound TIME SPENT (minutes): 30 Patient seen today by Josseline Magana, LITERACY TUTOR-C, and siva senior climate advisor. Wound vac dressing to midline abdomen changed. [...] January 27, 2018 TIME: 10:01 AM CONTACT#: [id number] PROGRESS Observed: 01/27/2018 Status: COMPLETED Source: [place] 7:27 AM [facility] [place] REPOSITORY HNO ID: [id number] Author: Ashu Menezes Service: General Surgery Author Type: Physician Type: Progress Notes Filed: 01/28/2018 5:50 PM Note Text: Emergency General Surgery Progress Note SERVICE DATE: 01/27/2018 Emergency General Surgery Service Pager: For questions or concerns Mon-Fri 6a-5p please page [phone]. After 5pm and on Weekends and Holidays, please page [phone] if in ICU or [phone] if on RNF. SUBJECTIVE: Weaned down on [...] 01/26/18699 - 01/27/1865801/27/18699 - 01/28/18 0659 Shift 4343-9159 2383-8181 6250-3936 24 Hour Total 2848-3137 6045-8284 5433-8043 24 Hour Total I N T A [...] x 0 x 0 x Dialysis 976 457 103 6030 Dialysis Output (Ultrafiltration) 976 916 320 7929 Shift Total 1076 871 451 6707 Weight (kg) 84 84 82.2 82.2 82.2 [...] Noted - Ruptured abdominal aortic aneurysm (AAA) ([facility]) 01/12/2018 - Obesity, Class I, BMI 30-34.9 01/16/2018 - Encephalopathy 01/13/2018 - DIC (disseminated intravascular coagulation) ([facility]) 01/12/2018 - Hemorrhagic shock ([facility]) 01/12/2018 - Acute respiratory failure ([facility]) 01/12/2018 - Cardiac arrest ([facility]) 01/12/2018 - Hypernatremia 01/12/2018 - Hypokalemia 01/12/2018 - Hypomagnesemia 01/12/2018 - Hypophosphatemia 01/12/2018 - Hyperchloremia 01/12/2018 - AAA (abdominal aortic aneurysm, ruptured) ([facility]) 01/12/2018 Overview Note: Added automatically from request for surgery [id number] 77 year old male with Ruptured AAA [...] in ICU or 2174 if on RNF. Attending Note I evaluated [...] PHERESED PLATELETS Collected: 01/27/2018 Status: F Source: [facility] 7:25 AM HEALTH SYSTEM REPOSITORY TYPE CODE TESTS RESULT OUT OF REFERENCE UNITS RANGE LAB PPHR(LOINC) Pheresed Plts Done unit 1 Performed By: #### PPHRS #### [place] [address] RBC PRODUCTS Collected: 01/27/2018 Status: F Source: [facility] 7:25 AM HEALTH SYSTEM REPOSITORY TYPE CODE TESTS RESULT OUT OF REFERENCE UNITS RANGE LAB UNIT1(LOINC ) Xmatch Unit 1 see below Result Comment: Compatible LAB UNIT2(LOINC) Xmatch Unit 2 see below Result Comment: Compatible Performed By: #### RBCPS #### [place] [address] PROGRESS Observed: 01/27/2018 Status: COMPLETED Source: [place] 6:28 AM CLINIC OTHER CAMPUS REPOSITORY O ID: [id number] Author: Dionicio (Luther Stevens Service: Vascular Surgery [...] 01/26/18699 - 01/27/1865801/27/18699 - 01/28/18 0659 Shift 6078-4186 0383-7356 5950-9574 24 Hour Total 1101-2653 6212-3908 3320-3664 24 Hour Total I N T A [...] x 0 x 0 x Dialysis 976 144 113 6103 Dialysis Output (Ultrafiltration) 976 992 962 6580 Shift Total 1076 678 769 9628 Weight (kg) 84 84 82.2 82.2 82.2 [...] Noted - Ruptured abdominal aortic aneurysm (AAA) ([facility]) 01/12/2018 - Obesity, Class I, BMI 30-34.9 01/16/2018 - Encephalopathy 01/13/2018 - DIC (disseminated intravascular coagulation) ([facility]) 01/12/2018 - Hemorrhagic shock ([facility]) 01/12/2018 - Acute respiratory failure ([facility]) 01/12/2018 - Cardiac arrest ([facility]) 01/12/2018 - Hypernatremia 01/12/2018 - Hypokalemia 01/12/2018 - Hypomagnesemia 01/12/2018 - Hypophosphatemia 01/12/2018 - Hyperchloremia 01/12/2018 - AAA (abdominal aortic aneurysm, ruptured) ([facility]) 01/12/2018 Overview Note: Added automatically from request for surgery [id number] 77 year old male with Ruptured AAA [...] 1 VIEW Observed: 01/27/2018 Status: F Source: [facility] 6:20 AM HEALTH SYSTEM REPOSITORY Performed at [facility] APPROVED BY: Benigno Lee MD Portable frontal chest, 0554 hours: CLINICAL INDICATION: Respiratory failure. COMPARISON: Daily prior chest radiographs. Multiple wires and tubes overlie the chest. There is an endotracheal tube in profile with the tracheal airway terminating above the kianna, an enteric tube extending into the stomach and a right general internal medicine doctor al jugular central venous catheter terminating in profile with the right atrium. There are bilateral perihilar and right infrahilar parenchymal opacities. The lateral costophrenic angles are clear. The cardiac and mediastinal silhouette appears stable. IMPRESSION: Bilateral parenchymal opacities, possible atelectasis or pneumonia. Life-support equipment as noted. HEMOGRAM/DIFF Collected: 01/27/2018 Status: F Source: [facility] 5:30 AM HEALTH SYSTEM REPOSITORY TYPE CODE [...] 0.67 LAB MONON(LOIN 0.30-0.82 thou/cmm C) Abs. Hunt 0.41 LAB EOSN(LOINC 0.04-0.54 thou/cmm ) Low Abs. Eosin 0.02 LAB BASON(LOIN 0.01-0.08 thou/cmm C) Abs. Baso 0.02 Result Comment: Smear scanned; tech agrees with automated differential Performed By: #### CBCD1 #### [place] [address] IONIZED CALCIUM Collected: 01/27/2018 Status: F Source: [facility] 5:30 AM HEALTH SYSTEM REPOSITORY TYPE CODE TESTS RESULT OUT OF REFERENCE UNITS RANGE LAB CAION(LOINC 4.43-4.93 mg/dL ) Low Ionized 4.26 Calcium LAB PHCAI(LOINC 7.320-7.420 ) pH 7.363 LAB CAPH(LOINC) 4.36-4.73 mg/dL Low Ionized 4.18 Ca,PH7.4 Performed By: #### IONCA #### [facility] [address] [place] [address] RENAL PANEL Collected: 01/27/2018 Status: F Source: [facility] 5:30 AM HEALTH SYSTEM REPOSITORY TYPE CODE [...] Blood 2.8 Performed By: #### RENAL #### [place] [address] MAGNESIUM BLOOD Collected: 01/27/2018 Status: F Source: [facility] 5:30 AM HEALTH SYSTEM REPOSITORY TYPE CODE TESTS RESULT OUT OF REFERENCE UNITS RANGE LAB MAG(LOINC) 1.6-2.6 mg/dL Magnesium Blood 2.4 Performed By: #### MAG #### [place] [address] RENAL PANEL Collected: 01/26/2018 Status: F Source: [facility] 11:45 PM HEALTH SYSTEM REPOSITORY TYPE CODE [...] Blood 3.0 Performed By: #### RENAL #### [facility] [address] [place] [address] MAGNESIUM BLOOD Collected: 01/26/2018 Status: F Source: [facility] 11:45 PM HEALTH SYSTEM REPOSITORY TYPE CODE TESTS RESULT OUT OF REFERENCE UNITS RANGE LAB MAG(LOINC) 1.6-2.6 mg/dL Magnesium Blood 2.4 Performed By: #### MAG #### [facility] [address] [place] [address] ALLIED HEALTH Observed: 01/26/2018 Status: COMPLETED Source: [place] 8:27 PM [facility] REPOSITORY HNO ID: [id number] Author: Chaplain Saenz (Chaplain) Service: Spiritual Care Author Type: Crack Off Person Type: Allied Health Filed: 01/26/2018 8:28 PM Note Text: SPIRITUALCARE Spiritual Care Visit- Brief Note Name: Naveen Akins Date: January 26, 2018 Notes: Pre-Surg visit attempted; staff working with pt; no family in room Crack Off Person Signature: Chaplain Dany To contact the Spiritual Care Department: Please call [phone] or Page the On-Call Crack Off Person at pager [phone] Thank you for the opportunity to be of service. This is an electronically created document. IF PRINTED, PLEASE DO NOT REMOVE FROM THE CHART OR MODIFY PRINTED COPY. NURSING PROG Observed: 01/26/2018 Status: COMPLETED Source: [place] 7:25 PM [facility] [place] REPOSITORY [facility] ID: [id number] Author: Traci Delvalle (Rn) MAGALY Oconnell Service: Dialysis Author Type: Registered Nurse Type: Nursing Progress Note Filed: 01/26/2018 7:28 PM Note Text: CRRT circuit changed All orders resumed bfr 200 Lines reversed A:V V:A Hemosafe devices on x 2 Report to Icu nurse Will monitor closely RENAL PANEL Collected: 01/26/2018 Status: F Source: [facility] 6:00 PM HEALTH SYSTEM REPOSITORY TYPE CODE [...] Blood 3.1 Performed By: #### RENAL #### [place] [address] MAGNESIUM BLOOD Collected: 01/26/2018 Status: F Source: [facility] 6:00 PM HEALTH SYSTEM REPOSITORY TYPE CODE TESTS RESULT OUT OF REFERENCE UNITS RANGE LAB MAG(LOINC) 1.6-2.6 mg/dL Magnesium Blood 2.4 Performed By: #### MAG #### [place] [address] ALLIED HEALTH Observed: 01/26/2018 Status: COMPLETED Source: [place] 1:00 PM CLINIC OTHER CAMPUS REPOSITORY [facility]NO ID: [id number] Author: Chaplain Serna (Chaplain) Service: Spiritual Care Author Type: Crack Off Person Type: Allied Health Filed: 01/26/2018 2:01 PM [...] we are here if they need us. Crack Off Person Signature: Chaplain Daphne To contact the Spiritual Care Department: Please call [phone] or Page the On-Call Crack Off Person at pager [phone] Thank you for the opportunity to be of service. This is an electronically created document. IF PRINTED, PLEASE DO NOT REMOVE FROM THE CHART OR MODIFY PRINTED COPY. PROGRESS Observed: 01/26/2018 Status: COMPLETED Source: [place] 12:54 PM CLINIC OTHER CAMPUS REPOSITORY [facility]NO ID: [id number] Author: Troy Godoy Service: Nephrology Author Type: Physician Type: Progress Notes Filed: 01/26/2018 12:55 PM Note Text: Subjective. No events new 01/26/18 1200 01/26/18 1215 01/26/18 1230 01/26/18 1250 BP: Pulse: (!) 129 118 102 115 Resp: 20 18 20 Temp: TempSrc: SpO2: 99% 99% [...] progress NUTRITION Observed: 01/26/2018 Status: COMPLETED Source: [place] 11:44 AM [facility] REPOSITORY [facility] ID: [id number] Author: Viry Mosher RD Service: NST-Nutrition Support [...] 1655 PREALB 18.6* Viry Mosher RD, LD, [facility] Pager: [phone] Increments: 3 PROGRESS Observed: 01/26/2018 Status: COMPLETED Source: [place] 11:17 AM CLINIC OTHER CAMPUS REPOSITORY [facility] ID: [id number] Author: Tracey (Rn) MAGALY De La Fuente Service: Dialysis Author Type: Registered Nurse Type: Progress Notes Filed: 01/26/2018 11:19 AM Note Text: CRRT circuit changed due to clotting filter. Access via right femoral temp HD cath. PBP, dialysate and post rep. At 800ml/hr. BFR at 150ml/min. Report to Jose GARDNER. RENAL PANEL Collected: 01/26/2018 Status: F Source: [facility] 10:50 AM HEALTH SYSTEM REPOSITORY TYPE CODE [...] Blood 3.3 Performed By: #### RENAL #### [facility] [address] [place], [place] [address] MAGNESIUM BLOOD Collected: 01/26/2018 Status: F Source: [facility] 10:50 AM HEALTH SYSTEM REPOSITORY TYPE CODE TESTS RESULT OUT OF REFERENCE UNITS RANGE LAB MAG(LOINC) 1.6-2.6 mg/dL Magnesium Blood 2.5 Performed By: #### MAG #### [facility] [address] [place] [address] PREALBUMIN Collected: 01/26/2018 Status: F Source: [facility] 10:50 AM HEALTH SYSTEM REPOSITORY TYPE CODE TESTS RESULT OUT OF REFERENCE UNITS RANGE LAB PAB(LOINC) 20.0-40.0 mg/dL Low Prealbumin 17.0 Performed By: #### PAB #### [facility] [address] [place] [address] PROGRESS Observed: 01/26/2018 Status: COMPLETED Source: [place] 10:40 AM CLINIC OTHER CAMPUS REPOSITORY O ID: [id number] Author: Paulo Lovelace (Cns) Service: Critical Care [...] ABG: Recent Labs 01/25/18 1600 01/25/18 0425 01/24/180 PH 7.478* 7.466* 7.443 PO2 79.2* 78.4* [...] 40 minutes excluding procedures. SIGNATURE: Paulo Lovelace APRN.CHAIR INSPECTOR PATIENT NAME: Naveen Akins DATE: January 26, 2018 TIME: 10:41 AM ALLIED HEALTH Observed: 01/26/2018 Status: COMPLETED Source: [place] 9:50 AM [facility] OTHER CAMPUS REPOSITORY [facility] ID: [id number] Author: Chaplain Serna (Chaplain) Service: Spiritual Care Author Type: Type: Allied Health Filed: 01/26/2018 10:39 AM [...] at his bedside--conversation about compassion and healing. SC will continue to follow this patient and fam as appropriate. Crack Off Person Signature: Maggi De La Paz, Crack Off Person To contact the Spiritual Care Department: Please call [phone] or Page the On-Call Crack Off Person at pager [phone] Thank you for the opportunity to be of service. This is an electronically created document. IF PRINTED, PLEASE DO NOT REMOVE FROM THE CHART OR MODIFY PRINTED COPY. PROGRESS Observed: 01/26/2018 Status: COMPLETED Source: [place] 9:27 AM [facility] OTHER CAMPUS REPOSITORY [facility] ID: [id number] Author: Dorcas Palafox Service: Critical Care Author [...] Intake/Output Summary (Last 24 hours) at 01/26/18 0971 Last data filed at 01/26/18 0745 Gross [...] H2O): 17 (01/26/18834) PEEP/CPAP (cm H2O): 5 (01/26/18 0835) HEMODYNAMIC DATA: NUTRITION: Enteral Feeds: No NPO [...] Hyperchloremia Encephalopathy Aaa (Abdominal Aortic Aneurysm, Ruptured) ([facility]) Obesity, Class I, Bmi 30-34.9 1. VDRF [...] 26, 2018 TIME: 9:27 AM PAGER/CONTACT #: [phone] PROGRESS Observed: 01/26/2018 Status: COMPLETED Source: [place] 6:27 AM CLINIC OTHER CAMPUS REPOSITORY [facility] ID: [id number] Author: Dionicio Stevens Service: Vascular Surgery Author [...] questions or concerns Mon-Tue 6a-5p please page [phone]. After 5pm and on Weekends and Holidays, please page [phone] if in ICU or [phone] if on RNF. Subjective SUBJECTIVE: Increased secretions [...] kg/m? O2 Therapy: Ventilator IANDO: Date 01/25/18 07 - 01/26/18 0659 01/26/18699 - 01/27/18 0659 Shift 7700-6022 7583-8577 3191-6018 24 Hour Total 9583-6739 3756-5506 1199-4916 24 Hour Total I N T A K E PO 217 217 Tube Feed Intake (GI Feed/Drain 01/12/18 0100) 217 217 IV 115.6 175.3 219.9 510.8 [...] 01/12/18 0749 Abdomen) 0 0 Tubes 220 7978 597 0377 Drain/Tube Output (Drain/Tube 01/19/18 1015 Midline Abdomen) 20 10 0 30 Output (GI Feed/Drain 01/12/18 0100) 200 3172 541 2916 # of BMs Number of BMs 0 x 2 x 0 x 2 x Dialysis 1309 313 920 9169 Dialysis Output (Ultrafiltration) 1309 961 611 0887 Shift Total 1529 4212 783 5010 Weight (kg) 84 84 84 84 84 [...] Noted - Ruptured abdominal aortic aneurysm (AAA) ([facility]) 01/12/2018 - Obesity, Class I, BMI 30-34.9 01/16/2018 - Encephalopathy 01/13/2018 - DIC (disseminated intravascular coagulation) ([facility]) 01/12/2018 - Hemorrhagic shock ([facility]) 01/12/2018 - Acute respiratory failure ([facility]) 01/12/2018 - Cardiac arrest ([facility]) 01/12/2018 - Hypernatremia 01/12/2018 - Hypokalemia 01/12/2018 - Hypomagnesemia 01/12/2018 - Hypophosphatemia 01/12/2018 - Hyperchloremia 01/12/2018 - AAA (abdominal aortic aneurysm, ruptured) ([facility]) 01/12/2018 Overview Note: Added automatically from request for surgery [id number] 77 year old male with Ruptured AAA [...] 1 VIEW Observed: 01/26/2018 Status: F Source: [facility] 5:14 AM HEALTH SYSTEM REPOSITORY Performed at [facility] APPROVED BY: Yajaira Veronica MD EXAM TITLE: [...] IONIZED CALCIUM Collected: 01/26/2018 Status: F Source: [facility] 4:15 AM HEALTH SYSTEM REPOSITORY TYPE CODE TESTS RESULT OUT OF REFERENCE UNITS RANGE LAB CAION(LOINC 4.43-4.93 mg/dL ) Low Ionized 4.11 Calcium LAB PHCAI(LOINC 7.320-7.420 ) pH High 7.437 LAB CAPH(LOINC) 4.36-4.73 mg/dL Low Ionized 4.18 Ca,PH7.4 Performed By: #### IONCA #### [facility] [address] [place] [address] HEMOGRAM/DIFF Collected: 01/26/2018 Status: F Source: [facility] 4:15 AM HEALTH SYSTEM REPOSITORY TYPE CODE [...] 0.55 LAB MONON(LOIN 0.30-0.82 thou/cmm C) Abs. Hunt 0.41 LAB EOSN(LOINC 0.04-0.54 thou/cmm ) Abs. Eosin Low 0.00 LAB BASON(LOIN 0.01-0.08 thou/cmm C) Abs. Baso Low 0.00 LAB RBCM(LOINC ) RBC Morphology Present LAB ANISO(LOIN C) Anisocytosis Slight Performed By: #### CBCD1 #### [facility] [address] [place] [address] HEPATIC PANEL Collected: 01/26/2018 Status: F Source: [facility] 4:15 AM HEALTH SYSTEM REPOSITORY TYPE CODE [...] Bilirubin 7.5 Performed By: #### HEPAP #### [place] [address] BASIC PANEL Collected: 01/26/2018 Status: F Source: [facility] 4:15 AM HEALTH SYSTEM REPOSITORY TYPE CODE [...] Gap 13 Performed By: #### P8 #### [place] [address] MAGNESIUM BLOOD Collected: 01/26/2018 Status: F Source: [facility] 4:15 AM HEALTH SYSTEM REPOSITORY TYPE CODE TESTS RESULT OUT OF REFERENCE UNITS RANGE LAB MAG(LOINC) 1.6-2.6 mg/dL Magnesium Blood 2.6 Performed By: #### MAG #### [facility] [address] [place] [address] PHOSPHORUS BLOOD Collected: 01/26/2018 Status: F Source: [facility] 4:15 AM HEALTH SYSTEM REPOSITORY TYPE CODE TESTS RESULT OUT OF REFERENCE UNITS RANGE LAB PHOS(LOINC 2.5-4.9 mg/dL ) Phosphorus Blood 3.1 Performed By: #### PHOS #### [facility] [address] [place] [address] TRIGLYCERIDE BLOOD Collected: 01/26/2018 Status: F Source: [facility] 4:15 AM HEALTH SYSTEM REPOSITORY TYPE CODE TESTS RESULT OUT OF REFERENCE UNITS RANGE LAB TRIG(LOINC 0-149 mg/dL ) Triglyceride High Blood 352 Result Comment: < 200 Desirable Result invalid if not a fasting specimen. Performed By: #### TRIG #### [facility] [address] [place] [address] PROGRESS Observed: 01/25/2018 Status: COMPLETED Source: [place] 11:44 PM CLINIC OTHER CAMPUS REPOSITORY [facility] ID: [id number] Author: Elder Granda Service: Critical Care Author Type: Physician Type: Progress Notes Filed: 01/25/2018 11:46 PM Note Text: GNR from sputum in 01/24. Sputum is thick. Completed a prolonged course of IV ABx. Will start Zosyn. Elder Granda MD 01/25/2018 11:46 PM HEMOGRAM/DIFF Collected: 01/25/2018 Status: F Source: [facility] 10:35 PM HEALTH SYSTEM REPOSITORY TYPE CODE [...] 0.63 LAB MONON(LOIN 0.30-0.82 thou/cmm C) Abs. Hunt 0.37 LAB EOSN(LOINC 0.04-0.54 thou/cmm ) Low Abs. Eosin 0.00 LAB BASON(LOIN 0.01-0.08 thou/cmm C) Abs. Baso 0.03 Performed By: #### CBCD1 #### [facility] [address] [place] [address] RENAL PANEL Collected: 01/25/2018 Status: F Source: [facility] 10:35 PM HEALTH SYSTEM REPOSITORY TYPE CODE [...] Blood 2.8 Performed By: #### RENAL #### [facility] [address] [place] [address] MAGNESIUM BLOOD Collected: 01/25/2018 Status: F Source: [facility] 10:35 PM HEALTH SYSTEM REPOSITORY TYPE CODE TESTS RESULT OUT OF REFERENCE UNITS RANGE LAB MAG(LOINC) 1.6-2.6 mg/dL Magnesium Blood 2.5 Performed By: #### MAG #### [place] [address] ALLIED HEALTH Observed: 01/25/2018 Status: COMPLETED Source: [place] 10:14 PM CLINIC OTHER CAMPUS REPOSITORY [facility] ID: [id number] Author: Gilbert TylerCrack Off PersonChaplain Mike Service: Spiritual Care Author Type: Crack Off Person Type: Allied Health Filed: 01/25/2018 10:21 PM Note Text: SPIRITUALCARE Spiritual Care Visit- Brief Note Name: Naveen Akins Date: January 25, 2018 Notes: While making rounds reconciliation specialist visited Pt's family in 3rd floor WR. Family stated they are praying for a miracle. Crack Off Person provided spiritual comfort and supportive presence. Per families request reconciliation specialist offered bedside prayers with Pt's RN present. Pt's RN indicated the Pt's condition is critical. Crack Off Person provided SC/supprt and encouragement for Pt's RN. Crack Off Person later returned and presented Pt's family with a Prayer [place]. Pt's family grateful for spiritual care/support, chaplains availability and prayer blanket. Crack Off Person to remain available. Crack Off Person Signature: Chaplain Familia To contact the [facility] Care Department: Please call [phone] or Page the On-Call Crack Off Person at pager [phone] Thank you for the opportunity to be of service. This is an electronically created document. IF PRINTED, PLEASE DO NOT REMOVE FROM THE CHART OR MODIFY PRINTED COPY. PROGRESS Observed: 01/25/2018 Status: COMPLETED Source: [place] 9:32 PM CLINIC OTHER CAMPUS REPOSITORY [facility] ID: [id number] Author: Jocelynn Chance Service: General Surgery Author [...] 25, 2018 9:37 PM [facility] #: Pager: [phone] MAGNESIUM BLOOD Collected: 01/25/2018 Status: F Source: [facility] 5:53 PM HEALTH SYSTEM REPOSITORY TYPE CODE TESTS RESULT OUT OF REFERENCE UNITS RANGE LAB MAG(LOINC) 1.6-2.6 mg/dL Magnesium Blood 2.6 Performed By: #### MAG #### [facility] [address] [place] [address] RENAL PANEL Collected: 01/25/2018 Status: F Source: [facility] 5:53 PM HEALTH SYSTEM REPOSITORY TYPE CODE [...] Blood 3.0 Performed By: #### RENAL #### [facility] [address] [place] [address] ABDOMEN 1 VIEW Observed: 01/25/2018 Status: F Source: [facility] 4:22 PM HEALTH SYSTEM REPOSITORY Performed at [facility] APPROVED BY: Teddy Mota MD EXAM TITLE: [...] GAS ARTERIAL Collected: 01/25/2018 Status: F Source: [facility] 4:00 HEALTH SYSTEM REPOSITORY TYPE CODE TESTS [...] Excess -2.2 Performed By: #### ABG #### [facility] [address] [place], [place] [address] PROGRESS Observed: 01/25/2018 Status: COMPLETED Source: [place] 3:47 PM CLINIC OTHER CAMPUS REPOSITORY O ID: [id number] Author: Paulo Lovelace (Cns) Service: Critical Care [...] (01/25/181138) Set Ventilator Respiratory Rate (BPM): 18 (01/25/181138) Total Respiratory Rate (BPM): 38 (01/25/181138) Tidal [...] 40 minutes excluding procedures. SIGNATURE: Paulo Lovelace APRN.CHAIR INSPECTOR PATIENT NAME: Naveen Akins DATE: January 25, 2018 TIME: 3:48 PM PROGRESS Observed: 01/25/2018 Status: COMPLETED Source: [place] 3:07 PM CLINIC OTHER CAMPUS REPOSITORY [facility] ID: [id number] Author: Noel Garcia MD Service: Neurology General Author Type: Resident Type: Progress Notes Filed: 01/27/2018 11:41 PM Note Text: NEUROLOGY CONSULT PROGRESS NOTE SERVICE DATE: 01/25/2018 Current Attending Provider: Venkat Paniagua Subjective HPI: Naveen Akins is a 77 year old male?transferred in critical condition from [facility] with diagnosed ruptured AAA. Patient was life-flighted to [facility], intubated at outside facility. Per transport, patient [...] CASE MANAGEM Observed: 01/25/2018 Status: COMPLETED Source: [place] 1:17 PM [facility] REPOSITORY [facility] ID: [id number] Author: Lorrie TylerRn) MAGALY Bo Service: (none) Author Type: Registered Nurse Type: Care Mgt Progress Note Filed: 01/25/2018 1:26 PM Note Text: CARE MANAGEMENT PROGRESS NOTE SERVICE DATE: 01/25/2018 SERVICE TIME: 1:18 PM LOS: 13 days FREEDOM OF CHOICE GIVEN: Yes ltac choice list discussed and declined list Preference: Select Needs Prior to Discharge: To Be Determined Lengthy discussion in waiting area with and two sons Zaki and dght Ruth. Has other dght not present. Discussed consult to ENT for pursuit of trach (informed by nsg and buyer tobacco head) which they seem agreeable to. Anticipate ltach [...] 25, 2018 TIME: 1:17 PM PAGER/CONTACT #: [phone] PROGRESS Observed: 01/25/2018 Status: COMPLETED Source: [place] 1:04 PM [facility] OTHER [place] REPOSITORY [facility] ID: [id number] Author: Dionicio Stevens Service: Vascular Surgery Author [...] questions or concerns Mon-Fri 6a-5p please page [phone]. After 5pm and on Weekends and Holidays, please page [phone] if in ICU or [phone] if on RNF. Subjective SUBJECTIVE: NAEON, Levo [...] 01/24/18699 - 01/25/1865801/25/18699 - 01/26/18 0659 Shift 3722-6040 3226-7321 9296-4261 24 Hour Total 7791-8406 8160-7161 4912-3343 24 Hour Total I N T A [...] 0 x 0 x 0 x Dialysis 292 179 1909 2350 976 976 Dialysis Output (Ultrafiltration) 441 993 3375 2350 976 976 Shift Total 395 684 4224 2570 1196 1196 Weight (kg) 83.6 83.6 [...] Noted - Ruptured abdominal aortic aneurysm (AAA) ([facility]) 01/12/2018 - Obesity, Class I, BMI 30-34.9 01/16/2018 - Encephalopathy 01/13/2018 - DIC (disseminated intravascular coagulation) ([facility]) 01/12/2018 - Hemorrhagic shock ([facility]) 01/12/2018 - Acute respiratory failure ([facility]) 01/12/2018 - Cardiac arrest ([facility]) 01/12/2018 - Hypernatremia 01/12/2018 - Hypokalemia 01/12/2018 - Hypomagnesemia 01/12/2018 - Hypophosphatemia 01/12/2018 - Hyperchloremia 01/12/2018 - AAA (abdominal aortic aneurysm, ruptured) ([facility]) 01/12/2018 Overview Note: Added automatically from request for surgery [id number] 77 year old male with Ruptured AAA [...] RNF. NUTRITION Observed: 01/25/2018 Status: COMPLETED Source: [place] 11:41 AM CLINIC OTHER CAMPUS REPOSITORY [facility] ID: [id number] Author: Viry Mosher RD Service: NST-Nutrition Support [...] Impact 1.5 at 50-60 ?cc/hr is goal-->?provides 1559-4784 calories and 113-135 pro , currently at [...] 1655 PREALB 18.6* Viry Mosher RD, LD, [facility] Pager: [phone] Increments: 3 PROGRESS Observed: 01/25/2018 Status: COMPLETED Source: [place] 11:08 AM CLINIC OTHER CAMPUS REPOSITORY O ID: [id number] Author: Shen Lorenzo Service: Nephrology Author Type: [...] 25 mg INTRAVENOUS q 12 H Dorcas Mike Decoy metoclopramide HCl 5 mg injection (REGLAN) 5 mg INTRAVENOUS q 6 H Dorcas Mike Decoy midazolam 100 mg in D5W 100 mL (VERSED) 1-10 mg/hr INTRAVENOUS CONTINUOUS Dorcashanna Mckeon Decoy Last Rate: 6 mL/hr at 01/25/18 0800 [...] 1 Drop BOTH EYES QID PRN Paulo (Clinical Applications Manager) [place] 1 Drop at 01/24/18 1511 heparin [...] 100 mL 0-200 mcg/hr INTRAVENOUS CONTINUOUS Dorcas Palafox Last Rate: 7.5 mL/hr at 01/25/18 0800 [...] 15 mL at 01/24/18 2145 No current Epic-ordered outpatient prescriptions on file. [...] do not hesitate to contact me at [phone] if there is any question or concern. Rosanna Talbert MD (Shen Lorenzo) NURSING PROG Observed: 01/25/2018 Status: COMPLETED Source: [place] 10:23 AM [facility] REPOSITORY HNO ID: [id number] Author: Donnell (Rn) MAGALY Velazco Service: Dialysis Author Type: Registered Nurse Type: Nursing Progress Note Filed: 01/25/2018 10:24 AM Note Text: Nursing Progress Note Patient Name: Naveen Akins [id number] Daily Note: Daily supervision for CRRT tx completed. Discussed tx with MAGALY Song, no complications at this time. Good flows from new femoral CVC. This note was completed by: Donnell Velazco RN PROGRESS Observed: 01/25/2018 Status: COMPLETED Source: [place] 8:51 AM [facility] REPOSITORY HNO ID: [id number] Author: Dorcas Palafox Service: Critical Care Author [...] labs and imaging results. LABS: Recent Labs 01/25/1842401/24/1841901/23/18 1020 WBC 15.78* < > 13.44* < [...] this interval not displayed. ABG: Recent Labs 01/25/1842401/24/18 22301/24/18 1820 PH 7.466* 7.443 7.420 PO2 [...] 25, 2018 TIME: 8:52 AM PAGER/CONTACT #: [phone] CHEST 1 VIEW Observed: 01/25/2018 Status: F Source: [facility] 5:46 AM HEALTH SYSTEM REPOSITORY Performed at [facility] APPROVED BY: Yajaira Veronica MD EXAM TITLE: [...] ART AND Collected: 01/25/2018 Status: F Source: [facility] [place] 4:25 AM HEALTH SYSTEM REPOSITORY [...] Ca,PH7.4 4.52 Performed By: #### ABGIG #### [facility] [address] [place] [address] HEMOGRAM/DIFF Collected: 01/25/2018 Status: F Source: [facility] 4:25 AM HEALTH SYSTEM REPOSITORY TYPE CODE [...] 0.66 LAB MONON(LOIN 0.30-0.82 thou/cmm C) Abs. Hunt 0.35 LAB EOSN(LOINC 0.04-0.54 thou/cmm ) Low Abs. Eosin 0.00 LAB BASON(LOIN 0.01-0.08 thou/cmm C) Abs. Baso 0.02 Result Comment: Smear scanned; tech agrees with automated differential Performed By: #### CBCD1 #### [place] [address] MAGNESIUM BLOOD Collected: 01/25/2018 Status: F Source: [facility] 4:25 AM HEALTH SYSTEM REPOSITORY TYPE CODE TESTS RESULT OUT OF REFERENCE UNITS RANGE LAB MAG(LOINC) 1.6-2.6 mg/dL Magnesium Blood 2.6 Performed By: #### MAG #### [place] [address] PHOSPHORUS BLOOD Collected: 01/25/2018 Status: F Source: [facility] 4:25 AM HEALTH SYSTEM REPOSITORY TYPE CODE TESTS RESULT OUT OF REFERENCE UNITS RANGE LAB PHOS(LOINC 2.5-4.9 mg/dL ) Phosphorus Blood 2.9 Performed By: #### PHOS #### [place] [address] BASIC PANEL Collected: 01/25/2018 Status: F Source: [facility] 4:25 AM HEALTH SYSTEM REPOSITORY TYPE CODE [...] Gap 16 Performed By: #### P8 #### [facility] [address] [address] Observed: 01/24/2018 Status: F Source: [facility] 11:50 PM HEALTH SYSTEM RESPIRATORY REPOSITORY Test performed at [facility] Absence of normal oropharyngeal john Few Gram negative bacilli Many Polymorphonuclear leukocytes Few Mononuclear cells ORGANISM: Enterobacter cloacae (ID: 1) Many Performed By: #### C_RES #### [facility] [address] [address] ALLIED HEALTH Observed: 01/24/2018 Status: COMPLETED Source: [place] 10:30 PM CLINIC OTHER CAMPUS REPOSITORY HNO ID: [id number] Author: Chaplain Robbins (Chaplain) Service: Spiritual Care Author Type: Crack Off Person Type: Allied Health Filed: 01/24/2018 11:20 PM [...] Family is thankful for prayer and visits. Crack Off Person Signature: Chaplain Rosendo To contact the Spiritual Care Department: Please call [phone] or Page the On-Call Crack Off Person at pager [phone] Thank you for the opportunity to be of service. This is an electronically created document. IF PRINTED, PLEASE DO NOT REMOVE FROM THE CHART OR MODIFY PRINTED COPY. BLOOD GAS ARTERIAL Collected: 01/24/2018 Status: F Source: [facility] 10:30 PM HEALTH SYSTEM REPOSITORY TYPE CODE [...] Excess -3.2 Performed By: #### ABG #### [facility] [address] [address] BLOOD GAS ARTERIAL Collected: 01/24/2018 Status: F Source: [facility] 6:20 HEALTH SYSTEM REPOSITORY TYPE CODE TESTS [...] Excess -2.5 Performed By: #### ABG #### [facility] [address] [address] HEMOGRAM Collected: 01/24/2018 Status: F Source: [facility] 6:20 HEALTH SYSTEM REPOSITORY TYPE CODE TESTS [...] 0.02 Absolute Performed By: #### CBC1 #### [facility] [address] [address] [address] HEAD W/O CONTRAST Observed: 01/24/2018 Status: F Source: [facility] 5:19 PM HEALTH SYSTEM REPOSITORY Performed at [facility] APPROVED BY: Moy Zelaya MD EXAMINATION: CT [...] CHEST EFFUSION Observed: 01/24/2018 Status: F Source: [facility] SURVEY LEFT 3:50 PM HEALTH SYSTEM REPOSITORY Performed at [facility] APPROVED BY: Megan Duarte MD Exam: Limited chest ultrasound dated 01/24/2018 15:30. Indication: Request for a therapeutic thoracentesis. Left pleural effusion. Comparison: CXR dated 01/24/2018. Technique: Real-time grayscale ultrasound of the chest was performed by the sonography technologist. Ultrasound was performed prior to the procedure to evaluate presence and distribution of left pleural fluid. Findings: Sonographic evaluation of the left chest reveals minimal pleural fluid. There is insufficient pleural fluid to necessitate a therapeutic thoracentesis. IMPRESSION: Insufficient left pleural effusion to necessitate a therapeutic thoracentesis. PROCEDURE Observed: 01/24/2018 Status: COMPLETED Source: [place] 3:00 PM CLINIC OTHER CAMPUS REPOSITORY HNO ID: [id number] Author: hSen Lorenzo Service: Nephrology Author Type: Physician Type: Procedures Filed: 01/24/2018 3:02 PM Note Text: BEDSIDE PROCEDURE NOTE DIALYSIS CATHETER Date/Start Time: 01/24/2018 3:00 PM Performed by: SHEN LORENZO Authorized by: SHEN LORENZO Consent/Panna Maria Protocol Written Consent Obtained: Yes Sign In [...] to clinical factors necessitating an emergent procedure [facility] Central Line Insertion Checklist Utilized: yes [...] CONSULT PROG Observed: 01/24/2018 Status: COMPLETED Source: [place] 2:16 PM [facility] REPOSITORY HNO ID: [id number] Author: Margaret (Rn) MAGALY Townsend Service: Wound/Ostomy Author Type: Registered Nurse Type: Consult Progress Note Filed: 01/24/2018 2:22 PM Note Text: Wound Care Consult Team Assessment Note: PATIENT NAME: Naveen Akins Reason for Assessment: Abdominal wound, wound vac Assessment: Patient seen today by Kaylene Magana LITERACY TUTOR and RN, see Wound Expert for detailed [...] Agrawal,RN,CWON CONSULT Observed: 01/24/2018 Status: COMPLETED Source: [place] 2:13 PM [facility] REPOSITORY HNO ID: [id number] Author: Brad Castillo Service: Neurology Author Type: [...] time indicated below. Time may include specific [facility]-approved services including review of chest radiography, interpretation of cardiac function measurements, ECGs, pulse oximetry, ventilator management, and vascular access procedures as necessary, but does not include time spent teaching or procedures billed separately. ?? Critical care time: 35?minutes. ?? SIGNATURE: Brad Castillo MD PATIENT NAME: Naveen Akins DATE: January 24, 2018 TIME: 2:13 PM PAGER/CONTACT #:[phone] PROGRESS Observed: 01/24/2018 Status: COMPLETED Source: [place] 2:11 PM CLINIC OTHER CAMPUS REPOSITORY O ID: [id number] Author: Shen Lorenzo Service: Nephrology Author Type: Physician Type: Progress Notes Filed: 01/24/2018 2:59 PM Note Text: Nephrology Progress Note Following for TERENCE. Pt is intubated/sedated. Remains off pressor. Current Inpatient Medications: Current Facility-Administered Medications Ordered in [facility]: Parenteral Nutrition - Adult INTRAVENOUS ONCE TPN (1800 START) Perla Dudley ipratropium-albuterol 3 mL nebulizer solution (DUONEB) 3 mL INHALATION QID Paulo (Clinical Applications Manager) Hudock 3 mL at 01/24/18 1125 dexmedetomidine 400 mcg in NaCl 0.9% 100 mL (PRECEDEX) 0.2- 0.7 mcg/kg/hr (Adjusted) INTRAVENOUS CONTINUOUS Dorcas Mike Palafox midazolam 100 mg in D5W 100 mL (VERSED) 1-10 mg/hr INTRAVENOUS CONTINUOUS Dorcas Palafox docusate sodium oral liquid 100 mg/10 mL [...] 1 Drop BOTH EYES QID PRN Paulo (Clinical Applications Manager) Hudock 1 Drop at 01/24/18 0838 heparin [...] mL 0-100 mcg/hr INTRAVENOUS CONTINUOUS Smooth C Catrachito Last Rate: 5 mL/hr at 01/24/18 0730 [...] do not hesitate to contact me at [phone] if there is any question or concern. Rosanna Talbert MD (Shen Lorenzo) RBC PRODUCTS Collected: 01/24/2018 Status: F Source: [facility] 11:40 AM HEALTH SYSTEM REPOSITORY TYPE CODE TESTS RESULT OUT OF REFERENCE UNITS RANGE LAB UNIT1(LOINC ) Xmatch Unit 1 see below Result Comment: Compatible LAB UNIT2(LOINC) Xmatch Unit 2 see below Result Comment: Compatible Performed By: #### RBCPS #### [place] [address] TYPE AND SCREEN Collected: 01/24/2018 Status: F Source: [facility] 11:40 AM HEALTH SYSTEM REPOSITORY TYPE CODE TESTS RESULT OUT OF REFERENCE UNITS RANGE LAB ABO(LOINC) O ABO Group LAB LABOR TRAINER(LOINC ) RH Type Positive LAB ABSCR(LOIN C) Antibody NEGATIVE Screen LAB BBCMT(LOIN C) Comment See Below Result Comment: Screen &/or Xmatch expires in 3 days at 12 midnight. Redraw patient at that time. Performed By: #### T&S #### [place] [address] HGB Collected: 01/24/2018 Status: F Source: [facility] 11:39 AM HEALTH SYSTEM REPOSITORY TYPE CODE TESTS RESULT OUT OF RANGE REFERENCE UNITS LAB HGBI(LOINC) 13.7-17.5 g/dL Low Hgb 7.9 Performed By: #### HGBI #### [place] [address] ALLIED HEALTH Observed: 01/24/2018 Status: COMPLETED Source: [place] 11:25 AM CLINIC OTHER CAMPUS REPOSITORY HNO ID: [id number] Author: Chaplain Serna (Chaplain) Service: Spiritual Care Author Type: Crack Off Person Type: Allied Health Filed: 01/24/2018 11:45 AM Note Text: SPIRITUALCARE Spiritual Care Visit- Brief Note Name: Naveen Akins Date: January 24, 2018 Notes: attempted to check in w/pt's fam--everyone was asleep except for his dtr, who was on the phone--we made eye contact and acknowledged one another.SC will continue to follow as needed. Signature: Chaplain Daphne To contact the [facility] Department: Please call [phone] or Page the On-Call at pager [phone] Thank you for the opportunity to be of service. This is an electronically created document. IF PRINTED, PLEASE DO NOT REMOVE FROM THE CHART OR MODIFY PRINTED COPY. NUTRITION Observed: 01/24/2018 Status: COMPLETED Source: [place] 11:04 AM [facility] OTHER CAMPUS REPOSITORY O ID: [id number] Author: Viry Mosher RD Service: NST-Nutrition Support [...] 1.5 at 50-60 cc/hr is goal--> provides 2916-9281 calories and 113-135 pro , currently at [...] 1655 PREALB 18.6* Viry Mosher RD, LD, [facility] Pager: [phone] Increments: 3 PROGRESS Observed: 01/24/2018 Status: COMPLETED Source: [place] 10:45 AM CLINIC OTHER CAMPUS REPOSITORY HNO ID: [id number] Author: Dorcas Palafox Service: Critical Care Author [...] 24, 2018 TIME: 10:47 AM PAGER/CONTACT #: [phone] CASE MANAGEM Observed: 01/24/2018 Status: COMPLETED Source: [place] 10:44 AM CLINIC OTHER CAMPUS REPOSITORY HNO ID: [id number] Author: Steve (Rn) MAGALY Rivera Service: Care [...] 24, 2018 TIME: 10:44 AM PAGER/CONTACT #: [phone] BLOOD GAS ARTERIAL Collected: 01/24/2018 Status: F Source: [facility] 10:30 AM HEALTH SYSTEM REPOSITORY TYPE CODE [...] Excess -2.4 Performed By: #### ABG #### [facility] [address] [address] ALLIED HEALTH Observed: 01/24/2018 Status: COMPLETED Source: [place] 10:20 AM [facility] REPOSITORY HNO ID: [id number] Author: Chaplain Serna (Chaplain) Service: Spiritual Care Author Type: Crack Off Person Type: Allied Health Filed: 01/24/2018 10:46 AM Note Text: SPIRITUALCARE Spiritual Care Visit- Brief Note Name: Naveen Akins Date: January 24, 2018 Notes: Stopped by pt's rm; pt's omid clements w/staff. Silent prayer outside door. Will follow up w/fam/pt later on. Crack Off Person Signature: Chaplain Daphne To contact the Spiritual Care Department: Please call [phone] or Page the On-Call Crack Off Person at pager [phone] Thank you for the opportunity to be of service. This is an electronically created document. IF PRINTED, PLEASE DO NOT REMOVE FROM THE CHART OR MODIFY PRINTED COPY. PROGRESS Observed: 01/24/2018 Status: COMPLETED Source: [place] 10:01 AM [facility] REPOSITORY HNO ID: [id number] Author: Paulo Lovelace (Cns) Service: Critical Care [...] 35 minutes excluding procedures. SIGNATURE: Paulo Lovelace APRN.CHAIR INSPECTOR PATIENT NAME: Naveen Akins DATE: January 24, 2018 TIME: 10:02 AM PROGRESS Observed: 01/24/2018 Status: COMPLETED Source: [place] 9:07 AM [facility] OTHER [place] REPOSITORY O ID: [id number] Author: Venkat Paniagua Service: Vascular Surgery Author Type: Physician Type: Progress Notes Filed: 01/24/2018 3:31 PM Note Text: Vascular Surgery Progress Note SERVICE DATE: 01/24/2018 Vascular AND Thoracic Surgery Service Pager: For questions or concerns Mon-Fri 6a-5p please page [phone]. After 5pm and on Weekends and Holidays, please page [phone] if in ICU or [phone] if on RNF. Subjective SUBJECTIVE: Levo restarted [...] kg/m? O2 Therapy: Ventilator IANDO: Date 01/23/18 0700 - 01/24/18 0659 01/24/18 07 - 01/25/18 0659 Shift 4534-5773 0659-1032 1223-1342 24 Hour Total 0860-0412 7981-0688 0239-5944 24 Hour Total I N T A [...] x 0 x 0 x Dialysis 1434 466 278 5497 93 93 Dialysis Output (Ultrafiltration) 1434 563 204 1641 93 93 Shift Total 1434 659 095 9063 93 93 Weight (kg) 86.2 86.2 83.6 [...] Noted - Ruptured abdominal aortic aneurysm (AAA) ([facility]) 01/12/2018 - Obesity, Class I, BMI 30-34.9 01/16/2018 - Encephalopathy 01/13/2018 - DIC (disseminated intravascular coagulation) ([facility]) 01/12/2018 - Hemorrhagic shock ([facility]) 01/12/2018 - Acute respiratory failure ([facility]) 01/12/2018 - Cardiac arrest ([facility]) 01/12/2018 - Hypernatremia 01/12/2018 - Hypokalemia 01/12/2018 - Hypomagnesemia 01/12/2018 - Hypophosphatemia 01/12/2018 - Hyperchloremia 01/12/2018 - AAA (abdominal aortic aneurysm, ruptured) ([facility]) 01/12/2018 Overview Note: Added automatically from request for surgery [id number] 77 year old male with Ruptured AAA [...] OF CARE Observed: 01/24/2018 Status: COMPLETED Source: [place] 8:02 AM CLINIC OTHER CAMPUS REPOSITORY HNO ID: [id number] Author: Dorie Schofield (Pharmacist) Service: Pharmacy Author Type: Pharmacist Type: Plan of Care Filed: 01/26/2018 3:33 PM Note Text: MEDICATION HISTORY AND MEDICATION RECONCILIATION Patient Name:.Naveen Akins : 1940 Source of history:Family: Reliability of source: Only knew pharmacy he fills at ([facility] in [place]- called) Medication Nonadherence Identified: Unable to verify at this time The above information represents the best possible medication history: Yes Reconciliation completed? Yes All WIRE FRAME [employer] medications addressed by LIP Additional comments: Unable to discuss with Shelly (spouse) at this time. Most recent medication picked up was a 7 day course of Augmentin BID on 01/11/18. 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 APPROVED BY: Matt Geiger MD EXAM TITLE: [...] excluded. HEMOGRAM/DIFF Collected: 01/24/2018 Status: F Source: [facility] 4:20 AM HEALTH SYSTEM REPOSITORY TYPE CODE [...] LAB MONON(LOIN 0.30-0.82 thou/cmm C) Low Abs. Hunt 0.28 LAB EOSN(LOINC 0.04-0.54 thou/cmm ) Low Abs. Eosin 0.01 LAB BASON(LOIN 0.01-0.08 thou/cmm C) Abs. Baso 0.01 Result Comment: Smear scanned; tech agrees with automated differential Performed By: #### CBCD1 #### [place] [address] PROTIME Collected: 01/24/2018 Status: F Source: [facility] 4:20 AM HEALTH SYSTEM REPOSITORY TYPE CODE TESTS RESULT OUT OF REFERENCE UNITS RANGE LAB PTI(LOINC) 9.3-11.9 sec Prothrombin Time 10.6 LAB INR(LOINC) INR 1.00 Result Comment: Standard Therapy 2.0-3.0 High Dose 2.5-3.5 Performed By: #### PT #### [address] [place], [place] [address] MAGNESIUM BLOOD Collected: 01/24/2018 Status: F Source: [facility] 4:20 AM HEALTH SYSTEM REPOSITORY TYPE CODE TESTS RESULT OUT OF REFERENCE UNITS RANGE LAB MAG(LOINC) 1.6-2.6 mg/dL High Magnesium Blood 2.7 Performed By: #### MAG #### [place] [address] PHOSPHORUS BLOOD Collected: 01/24/2018 Status: F Source: [facility] 4:20 AM HEALTH SYSTEM REPOSITORY TYPE CODE TESTS RESULT OUT OF REFERENCE UNITS RANGE LAB PHOS(LOINC 2.5-4.9 mg/dL ) Phosphorus Blood 3.5 Performed By: #### PHOS #### [place] [address] BASIC PANEL Collected: 01/24/2018 Status: F Source: [facility] 4:20 AM HEALTH SYSTEM REPOSITORY TYPE CODE [...] Gap 17 Performed By: #### P8 #### [place] [address] HEPATIC PANEL Collected: 01/24/2018 Status: F Source: [facility] 4:20 AM HEALTH SYSTEM REPOSITORY TYPE CODE [...] Bilirubin 5.35 Performed By: #### HEPAP #### [facility] [address] [place], [place] [address] TRIGLYCERIDE BLOOD Collected: 01/24/2018 Status: F Source: [facility] 4:20 AM HEALTH SYSTEM REPOSITORY TYPE CODE TESTS RESULT OUT OF REFERENCE UNITS RANGE LAB TRIG(LOINC 0-149 mg/dL ) Triglyceride High Blood 560 Result Comment: < 200 Desirable Result invalid if not a fasting specimen. Performed By: #### TRIG #### [facility] [address] [place], [place] [address] OPERATIVE NO Observed: 01/24/2018 Status: COMPLETED Source: [place] 12:00 AM CLINIC OTHER CAMPUS REPOSITORY O ID: [id number] Author: Venkat Paniagua Service: Vascular Surgery Author Type: Physician Type: Operative Report Filed: 01/27/2018 9:08 AM Note Text: [facility] - Operative Report SURGEON: Venkat Paniagua MD PATIENT NAME: NAVEEN AKINS CSN: [id number] DATE OF SURGERY: 01/16/2018 DATE OF : 1940 SEX/AGE: M/77 PATIENT TYPE: I HOSP SVC: LICO LOCATION: [facility] DATE OF SURGERY: 01/16/2018 SURGEON: Venkat Paniagua MD The patient is an inpatient. PREOPERATIVE DIAGNOSIS: Status post ruptured aneurysm with open abdomen. POSTOPERATIVE DIAGNOSIS: Status post ruptured aneurysm with open abdomen. PROCEDURE: Exploratory laparotomy, change of wound vacuum-assisted closure, and abdominal washout. REGISTERED ROUTE ASSOCIATE: Kannan Felder MD and Lotus Schuler SA. [...] condition. Venkat Paniagua MD Vascular Surgery HORACEW:mika /[id number] CONSULT Observed: 01/23/2018 Status: COMPLETED Source: [place] 10:36 PM [facility] REPOSITORY HNO ID: [id number] Author: Noel Garcia MD Service: Neurology General Author Type: Resident Type: Consults Filed: 01/25/2018 3:07 PM Note Text: Attestation signed by Brad Castillo at 02/23/2018 10:[address] [facility] STAFF ADDENDUM Brad Castillo MD Case d/w [...] goals of care,?medical plan for the day, quality assurance consultant recommendations, medical disposition and current medical [...] old male transferred in critical condition from [facility] with diagnosed ruptured AAA. Patient was life-flighted to [facility], intubated at outside facility. Per transport, patient [...] 23, 2018 TIME: 10:37 PM PAGER/CONTACT #: [phone] BLOOD GAS ARTERIAL Collected: 01/23/2018 Status: F Source: [facility] 10:35 PM HEALTH SYSTEM REPOSITORY TYPE CODE [...] Excess -2.1 Performed By: #### ABG #### [facility] [address] [place] [address] ABDOMEN 1 VIEW Observed: 01/23/2018 Status: F Source: [facility] 6:52 PM HEALTH SYSTEM REPOSITORY Performed at [facility] APPROVED BY: KRISTIE KHAN MD ABDOMEN , [...] PROCESS. PROGRESS Observed: 01/23/2018 Status: COMPLETED Source: [place] 6:47 PM CLINIC OTHER CAMPUS REPOSITORY HNO ID: [id number] Author: Yamel (Rn) MAGALY Young Service: Dialysis Author Type: Registered [...] RIGHT UPPER Observed: 01/23/2018 Status: F Source: [facility] 6:11 PM HEALTH SYSTEM REPOSITORY Performed at [facility] APPROVED BY: Jim Licea MD EXAM TITLE: [...] GAS ARTERIAL Collected: 01/23/2018 Status: F Source: [facility] 4:55 PM HEALTH SYSTEM REPOSITORY TYPE CODE [...] Excess -2.8 Performed By: #### ABG #### [facility] [address] [place] [address] HEMOGRAM Collected: 01/23/2018 Status: F Source: [facility] [address] SYSTEM REPOSITORY TYPE CODE TESTS RESULT [...] High 12.7 Performed By: #### CBC1 #### [facility] [address] [place] [address] PREALBUMIN Collected: 01/23/2018 Status: F Source: [facility] 4:[address] [place] [address] SYSTEM REPOSITORY TYPE CODE TESTS RESULT OUT OF REFERENCE UNITS RANGE LAB PAB(LOINC) 20.0-40.0 mg/dL Low Prealbumin 18.6 Performed By: #### PAB #### [facility] [address] [place] [id number] PROGRESS Observed: 01/23/2018 Status: COMPLETED Source: [place] 3:18 PM CLINIC OTHER CAMPUS REPOSITORY O ID: [id number] Author: Shen Lorenzo Service: Nephrology Author Type: [...] (PRECEDEX) 0.2- 0.7 mcg/kg/hr INTRAVENOUS CONTINUOUS Paulo (Clinical Applications Manager) Hudock Last Rate: 9.67 mL/hr at 01/23/18 0604 0.4 mcg/kg/hr at 01/23/18 0604 carboxymethylcellulose sodium 1-2 Drop (CELLUVISC) 1-2 Drop BOTH EYES PRN Venkat Paniagua 2 Drop at 01/22/18 2049 polyvinyl alcohol-povidone 1.4-0.6 % 1 Drop (REFRESH) 1 Drop BOTH EYES QID PRN Paulo (Clinical Applications Manager) Hudock 1 Drop at 01/21/18 1641 propofol [...] do not hesitate to contact me at [phone] if there is any question or concern. Rosanna Talbert MD (Shen Lorenzo) CASE MANAGEM Observed: 01/23/2018 Status: COMPLETED Source: [place] 1:00 PM CLINIC OTHER CAMPUS REPOSITORY HNO ID: [id number] Author: Lorrie (Magaly) MAGALY Bo Service: (none) [...] 23, 2018 TIME: 1:00 PM PAGER/CONTACT #: [phone] NUTRITION Observed: 01/23/2018 Status: COMPLETED Source: [place] 12:59 PM CLINIC OTHER CAMPUS REPOSITORY HNO ID: [id number] Author: Viry Mosher RD Service: NST-Nutrition Support [...] cc/hr is goal, start at 10--> provides 2135-8573 calories and 113-135 pro Diprivan @ 10 [...] -- 7.2* Viry Mosher RD, LD Pager: [phone] Increments: 3 BLOOD GAS ARTERIAL Collected: 01/23/2018 Status: F Source: [facility] 12:50 PM HEALTH SYSTEM REPOSITORY TYPE CODE [...] FIO2 40 Performed By: #### ABG #### [facility] [address] [place], [place] [address] PROGRESS Observed: 01/23/2018 Status: COMPLETED Source: [place] 10:37 AM CLINIC OTHER CAMPUS REPOSITORY HNO ID: [id number] Author: Dorcas Palafox Service: Critical Care Author [...] on command. Respiratory/Nursing Documentation: O2 Therapy: Ventilator (01/23/18 08) Invasive Ventilator Mode: Pressure Regulated Volume Control (01/23/18730) Set Ventilator Respiratory Rate (BPM): 18 (01/23/18 08) Total Respiratory Rate (BPM): 25 (01/23/18730) Tidal Volume Set (mL): 480 (01/23/18799) Exhaled Tidal Volume (mL): 752 (01/23/18730) Minute Volume (L): 20.1 (01/23/18730) Peak Inspiratory Pressure (cm H2O): 15 (01/23/18 0800) PEEP/CPAP (cm H2O): 8 (01/23/18 08) HEMODYNAMIC DATA: NUTRITION: Enteral Feeds: No NPO [...] 23, 2018 TIME: 10:38 AM PAGER/CONTACT #: [phone] PROTIME Collected: 01/23/2018 Status: F Source: [facility] 10:20 AM HEALTH SYSTEM REPOSITORY TYPE CODE TESTS RESULT OUT OF REFERENCE UNITS RANGE LAB PTI(LOINC) 9.3-11.9 sec Prothrombin Time 10.0 LAB INR(LOINC) INR 0.93 Result Comment: Standard Therapy 2.0-3.0 High Dose 2.5-3.5 Performed By: #### PT #### [place] [address] ACTIVATED PTT Collected: 01/23/2018 Status: F Source: [facility] 10:20 AM HEALTH SYSTEM REPOSITORY TYPE CODE TESTS RESULT OUT OF REFERENCE UNITS RANGE LAB APTT(LOINC 22.0-34.0 sec ) Activated PTT 23.9 Performed By: #### APTT #### [place] [address] ALLIED HEALTH Observed: 01/23/2018 Status: COMPLETED Source: [place] 8:03 AM CLINIC OTHER CAMPUS REPOSITORY O ID: [id number] Author: Chaplain Will (Chaplain) Service: Spiritual Care Author Type: Crack Off Person Type: Allied Health Filed: 01/23/2018 8:04 AM Note Text: SPIRITUALCARE Spiritual Care Visit- Brief Note Name: Naveen Akins Date: January 23, 2018 Notes: Per request of patient's family I prayed for the patient this morning. Crack Off Person Signature: Chaplain Suman To contact the Spiritual Care Department: Please call [phone] or Page the On-Call Crack Off Person at pager [phone] Thank you for the opportunity to be of service. This is an electronically created document. IF PRINTED, PLEASE DO NOT REMOVE FROM THE CHART OR MODIFY PRINTED COPY. PROGRESS Observed: 01/23/2018 Status: COMPLETED Source: [place] 6:23 AM [facility] REPOSITORY O ID: [id number] Author: Dionicio Stevens Service: Vascular Surgery Author [...] questions or concerns Tue-Tue 6a-5p please page [phone]. After 5pm and on Weekends and Holidays, please page [phone] if in ICU or [phone] if on RNF. Subjective SUBJECTIVE: NAEON, mildly [...] kg/m? O2 Therapy: Ventilator IANDO: Date 01/22/18 0700 - 01/23/18 0659 01/23/18 0700 - 01/24/18 0659 Shift 0673-4509 3762-9395 6657-3660 24 Hour Total 6401-3839 8891-7212 0170-9422 24 Hour Total I N T A K E IV 581 224 805 NS 0.9% 30 53 83 Calcium IVPB 250 250 Fentanyl Volume 33 14 47 Dexmedetomidine IV 110 47 157 NORepinephrine Volume 21 8 29 Propofol IV 37 2 39 Ampicillin/Sulbactam (Unasyn) IV 100 100 200 TPN/PPN 503 324 827 TPN 503 324 827 Shift Total 4930 134 2939 O U T P U T Drains 10 10 Negative Pressure: Output (mL) (Negative Pressure Wound Therapy 01/12/18 0749 Abdomen) 10 10 Dialysis 1452 9934 959 1731 Dialysis Output (Ultrafiltration) 1452 5123 965 2848 Shift Total 1452 [phone] Weight (kg) 89 89 86.2 86.2 86.2 [...] Noted - Ruptured abdominal aortic aneurysm (AAA) ([facility]) 01/12/2018 - Obesity, Class I, BMI 30-34.9 01/16/2018 - Encephalopathy 01/13/2018 - DIC (disseminated intravascular coagulation) ([facility]) 01/12/2018 - Hemorrhagic shock ([facility]) 01/12/2018 - Acute respiratory failure ([facility]) 01/12/2018 - Cardiac arrest ([facility]) 01/12/2018 - Hypernatremia 01/12/2018 - Hypokalemia 01/12/2018 - Hypomagnesemia 01/12/2018 - Hypophosphatemia 01/12/2018 - Hyperchloremia 01/12/2018 - AAA (abdominal aortic aneurysm, ruptured) ([facility]) 01/12/2018 Overview Note: Added automatically from request for surgery [id number] 77 year old male with Ruptured AAA [...] 1 VIEW Observed: 01/23/2018 Status: F Source: [facility] 5:41 AM HEALTH SYSTEM REPOSITORY Performed at [facility] APPROVED BY: Yajaira Veronica MD EXAM TITLE: CHEST 1 VIEW DATE: 01/23/2018 05:36 INDICATION: Respiratory failure COMPARISON: 01/22/2018 FINDINGS: The ETT, NGT, and bilateral central venous catheters are stable. Since the previous exam, there has been slight improvement in bilateral infiltrates. Stable small left pleural effusion. Heart is not enlarged. IMPRESSION: Slight improvement in bilateral infiltrates. BASIC PANEL Collected: 01/23/2018 Status: F Source: [facility] 4:35 AM HEALTH SYSTEM REPOSITORY TYPE CODE [...] Gap 16 Performed By: #### P8 #### [place] [address] HEPATIC PANEL Collected: 01/23/2018 Status: F Source: [facility] 4:35 AM HEALTH SYSTEM REPOSITORY TYPE CODE [...] Bilirubin 6.44 Performed By: #### HEPAP #### [place] [address] HEMOGRAM/DIFF Collected: 01/23/2018 Status: F Source: [facility] 4:35 AM HEALTH SYSTEM REPOSITORY TYPE CODE [...] LAB MONON(LOIN 0.30-0.82 thou/cmm C) Low Abs. Hunt 0.28 LAB EOSN(LOINC 0.04-0.54 thou/cmm ) Low Abs. Eosin 0.00 LAB BASON(LOIN 0.01-0.08 thou/cmm C) Abs. Baso 0.02 Performed By: #### CBCD1 #### [facility] [address] [place], [place] [address] ALLIED HEALTH Observed: 01/22/2018 Status: COMPLETED Source: [place] 10:55 PM CLINIC OTHER CAMPUS REPOSITORY HNO ID: [id number] Author: Gladys Salas) Chaplain Zeb Service: Spiritual Care Author Type: Crack Off Person Type: Allied Health Filed: 01/23/2018 5:39 AM Note Text: SPIRITUALCARE Spiritual Care Visit- Brief Note Name: Naveen Akins Date: January 23, 2018 Notes: Patient's family in 3rd floor waiting room and requested prayer. Patient's mother, sisters and son. Follow up needed. Crack Off Person Signature: Chaplain Suman To contact the Spiritual Care Department: Please call [phone] or Page the On-Call Crack Off Person at pager [phone] Thank you for the opportunity to be of service. This is an electronically created document. IF PRINTED, PLEASE DO NOT REMOVE FROM THE CHART OR MODIFY PRINTED COPY. BLOOD GAS ARTERIAL Collected: 01/22/2018 Status: F Source: [facility] 10:35 PM HEALTH SYSTEM REPOSITORY TYPE CODE [...] Excess -3.0 Performed By: #### ABG #### [facility] [address] [place] [address] BLOOD GAS ARTERIAL Collected: 01/22/2018 Status: F Source: [facility] 6:00 HEALTH SYSTEM REPOSITORY TYPE CODE TESTS [...] FIO2 75.0 Performed By: #### ABG #### [facility] [address] [place] [id number] RENAL PANEL Collected: 01/22/2018 Status: F Source: [facility] 6:00 HEALTH SYSTEM REPOSITORY TYPE CODE TESTS [...] Blood 4.4 Performed By: #### RENAL #### [facility] [address] [place] [id number] MAGNESIUM BLOOD Collected: 01/22/2018 Status: F Source: [facility] 6:00 PM HEALTH SYSTEM REPOSITORY TYPE CODE TESTS RESULT OUT OF REFERENCE UNITS RANGE LAB MAG(LOINC) 1.6-2.6 mg/dL High Magnesium Blood 2.8 Performed By: #### MAG #### [facility] [address] [place] [address] HEMOGRAM Collected: 01/22/2018 Status: F Source: [facility] 6:00 PM HEALTH SYSTEM REPOSITORY TYPE CODE [...] 0.11 Absolute Performed By: #### CBC1 #### [facility] [address] [place] [id number] PROGRESS Observed: 01/22/2018 Status: COMPLETED Source: [place] 4:16 PM CLINIC OTHER CAMPUS REPOSITORY HNO ID: [id number] Author: Costa Miguel Service: Gastroenterology Surgery Author Type: Physician Type: Progress Notes Filed: 01/22/2018 4:17 PM Note Text: Wound without issue. Further care per primary service. Costa Miguel MD, FACS, [facility] BLOOD GAS ARTERIAL Collected: 01/22/2018 Status: F Source: [facility] 1:30 PM HEALTH SYSTEM REPOSITORY TYPE CODE [...] Excess -3.1 Performed By: #### ABG #### [place] [address] MAGNESIUM BLOOD Collected: 01/22/2018 Status: F Source: [facility] 1:30 PM HEALTH SYSTEM REPOSITORY TYPE CODE TESTS RESULT OUT OF REFERENCE UNITS RANGE LAB MAG(LOINC) 1.6-2.6 mg/dL High Magnesium Blood 2.8 Performed By: #### MAG #### [place] [address] PROGRESS Observed: 01/22/2018 Status: COMPLETED Source: [place] 11:07 AM CLINIC OTHER CAMPUS REPOSITORY O ID: [id number] Author: Herman Sutton Service: Critical Care Author [...] fluid, goal 100cc/hr spoke with Dr Devi Levophed Fentanyl ?Drip for pain Wean off propofol [...] AM PROGRESS Observed: 01/22/2018 Status: COMPLETED Source: [place] 9:35 AM CLINIC OTHER CAMPUS REPOSITORY HNO ID: [id number] Author: Vicky Devi MD Service: Nephrology Author Type: Physician Type: Progress Notes Filed: 01/22/2018 9:38 AM Note Text: Subjective. Intubated with FIO2 40%. Sedated. On levophed 4 mcg/min On TPN 01/22/18 0600 01/22/18 0645 01/22/18 0700 01/22/18 0800 BP: Pulse: 75 74 76 Resp: 20 Temp: TempSrc: SpO2: 97% 99% 97% Weight: [...] 1 VIEW Observed: 01/22/2018 Status: F Source: [facility] 6:29 AM HEALTH SYSTEM REPOSITORY Performed at [facility] APPROVED BY: Matt Geiger MD EXAM TITLE: [...] pneumonia. PROGRESS Observed: 01/22/2018 Status: COMPLETED Source: [place] 6:28 AM [facility] OTHER CAMPUS REPOSITORY HNO ID: [id number] Author: Dionicio (Edenilson) Rodney Service: Vascular Surgery Author Type: Resident Type: Progress Notes Filed: 01/22/2018 8:19 AM Note Text: Attestation signed by Марина De Anda at 01/22/2018 10:32 AM [facility] STAFF PHYSICIAN NOTE OF PERSONAL INVOLVEMENT IN [...] questions or concerns Mon-Tue 6a-5p please page [phone]. After 5pm and on Weekends and Holidays, please page [phone] if in ICU or [phone] if on RNF. Subjective SUBJECTIVE: Mild hypotension [...] O2 Therapy: Ventilator IANDO: Date 01/21/18699 - 01/22/18 0659 01/22/18 07 - 01/23/18 0659 Shift 5109-8907 1084-3684 1734-0767 24 Hour Total 7681-5496 8306-9938 5907-9886 24 Hour Total I N T A [...] Feed/Drain 01/12/18 0100) 30 30 Dialysis 1769 0521 642 0775 Dialysis Output (Ultrafiltration) 1769 3665 586 5625 Shift Total 1874 3113 420 7951 Weight (kg) 94.1 94.1 94.1 94.1 94.1 [...] Noted - Ruptured abdominal aortic aneurysm (AAA) ([facility]) 01/12/2018 - Obesity, Class I, BMI 30-34.9 01/16/2018 - Encephalopathy 01/13/2018 - DIC (disseminated intravascular coagulation) ([facility]) 01/12/2018 - Hemorrhagic shock ([facility]) 01/12/2018 - Acute respiratory failure ([facility]) 01/12/2018 - Cardiac arrest ([facility]) 01/12/2018 - Hypernatremia 01/12/2018 - Hypokalemia 01/12/2018 - Hypomagnesemia 01/12/2018 - Hypophosphatemia 01/12/2018 - Hyperchloremia 01/12/2018 - AAA (abdominal aortic aneurysm, ruptured) ([facility]) 01/12/2018 Overview Note: Added automatically from request for surgery [id number] 77 year old male with Ruptured AAA [...] MAGNESIUM BLOOD Collected: 01/22/2018 Status: F Source: [facility] 4:20 AM [facility] SYSTEM REPOSITORY TYPE CODE TESTS RESULT OUT OF REFERENCE UNITS RANGE LAB MAG(LOINC) 1.6-2.6 mg/dL High Magnesium Blood 2.9 Performed By: #### MAG #### [place] [address] PHOSPHORUS BLOOD Collected: 01/22/2018 Status: F Source: [facility] 4:20 AM HEALTH SYSTEM REPOSITORY TYPE CODE TESTS RESULT OUT OF REFERENCE UNITS RANGE LAB PHOS(LOINC 2.5-4.9 mg/dL ) Phosphorus Blood 4.4 Performed By: #### PHOS #### [place] [address] HEMOGRAM/DIFF Collected: 01/22/2018 Status: F Source: [facility] 4:20 AM HEALTH SYSTEM REPOSITORY TYPE CODE [...] 0.61 LAB MONON(LOIN 0.30-0.82 thou/cmm C) Abs. Hunt 0.31 LAB EOSN(LOINC 0.04-0.54 thou/cmm ) Low Abs. Eosin 0.00 LAB BASON(LOIN 0.01-0.08 thou/cmm C) Abs. Baso 0.02 Result Comment: Smear scanned; tech agrees with automated differential Performed By: #### CBCD1 #### [address] [address] BASIC PANEL Collected: 01/22/2018 Status: F Source: [facility] 4:20 AM HEALTH SYSTEM REPOSITORY TYPE CODE [...] Gap 18 Performed By: #### P8 #### [facility] [address] [place] [address] BLOOD GAS ARTERIAL Collected: 01/21/2018 Status: F Source: [facility] 10:24 PM HEALTH SYSTEM REPOSITORY TYPE CODE [...] Excess -4.0 Performed By: #### ABG #### [place] [address] BLOOD GAS ARTERIAL Collected: 01/21/2018 Status: F Source: [facility] 4:10 PM HEALTH SYSTEM REPOSITORY TYPE CODE [...] Excess -5.3 Performed By: #### ABG #### [place] [address] HEMOGRAM Collected: 01/21/2018 Status: F Source: [facility] 4:09 PM HEALTH SYSTEM REPOSITORY TYPE CODE [...] 0.18 Absolute Performed By: #### CBC1 #### [place] [id number] PROGRESS Observed: 01/21/2018 Status: COMPLETED Source: [place] 12:47 PM CLINIC OTHER CAMPUS REPOSITORY HNO ID: [id number] Author: Tracey (Rn) MAGALY De La Fuente Service: Dialysis Author Type: Registered Nurse Type: Progress Notes Filed: 01/21/2018 12:49 PM Note Text: CRRT restarted using same orders after pt returned form OR. M100 dialyzer. Access via left neck temp HD cath. starting TMP 101. Report to Jose LYMAN POST Observed: 01/21/2018 Status: COMPLETED Source: [place] 12:05 PM CLINIC OTHER CAMPUS REPOSITORY HNO ID: [id number] Author: Tim Tabor Service: Anesthesiology Author Type: [...] 21, 2018 TIME: 12:05 PM PAGER/CONTACT #: [phone] PROGRESS Observed: 01/21/2018 Status: COMPLETED Source: [place] 12:01 PM CLINIC OTHER CAMPUS REPOSITORY O ID: [id number] Author: Paulo Lovelace (Cns) Service: Critical Care [...] injection (GLUCAGEN) 1 mg INTRAMUSCULAR PRN Or [AUG Hold due to Transfer] dextrose 50% in water 25 mL syringe 12.5 g INTRAVENOUS PRN [AUG Hold due to Transfer] magnesium sulfate 1 g in D5W 100 mL 1 g INTRAVENOUS PRN [AUG Hold due to Transfer] magnesium sulfate in [...] 250 mL (LEVOPHED) 0-30 mcg/min INTRAVENOUS CONTINUOUS [AUG Hold due to Transfer] Chlorhexidine Gluconate 0.12 [...] 114) Tidal Volume Set (mL): 480 (01/21/18 114) Exhaled Tidal Volume (mL): 470 (01/21/18 114) Minute Volume (L): 10.1 (01/21/18 114) Peak Inspiratory Pressure (cm H2O): 33 (01/21/18 114) PEEP/CPAP (cm H2O): 8 (01/21/18 1141) HEMODYNAMIC DATA: Reviewed NUTRITION: Enteral Feeds: TPN [...] 30 minutes excluding procedures. SIGNATURE: Paulo Lovelace APRN.CHAIR INSPECTOR PATIENT NAME: Naveen Akins DATE: January 21, 2018 TIME: 12:01 PM BRIEF OP NOT Observed: 01/21/2018 Status: COMPLETED Source: [place] 11:29 AM [facility] OTHER CAMPUS REPOSITORY O ID: [id number] Author: Tristen Luz Service: General Surgery Author Type: Resident Type: Brief Op Note Filed: 01/21/2018 11:30 AM Note Text: Attestation signed by Costa Miguel at 01/21/2018 1:32 PM I was present for the critical and coleman portions of the surgery and I was immediately available to provide assistance. Costa Miguel MD, [facility], [facility] BRIEF OPERATIVE / PROCEDURE NOTE LOG ID: [id number] SURGERY/PROCEDURE DATE: 01/21/2018 INCISION/PROCEDURE START TIME: 10:43 AM INCISION CLOSE/PROCEDURE END TIME: 11:17 AM SURGEON(S)/PROCEDURALIST(S) AND REGISTERED ROUTE ASSOCIATE(S): Surgeon(s) and Role: * Costa Miguel - Primary * Tristen Luz - Resident - Assisting * Emilie Underwoodella - Resident - Assisting No Additional Staff [...] VIEW IN Observed: 01/21/2018 Status: F Source: [facility] 11:15 AM HEALTH SYSTEM REPOSITORY Performed at [facility] APPROVED BY: Matt Geiger MD EXAM TITLE: [...] ANES PREOP Observed: 01/21/2018 Status: COMPLETED Source: [place] 10:10 AM [facility] OTHER CAMPUS REPOSITORY HNO ID: [id number] Author: Tim Tabor Service: Anesthesiology Author Type: Physician Type: Anesthesia PreOp Filed: 01/21/2018 10:14 AM Note Text: ANESTHESIOLOGY DAY OF SURGERY NOTE SERVICE DATE: 01/21/2018 SERVICE TIME: 10:10 AM : 1940 Procedure(s) (LRB): EXPLORATORY LAPAROTOMY (N/A) CLOSURE WOUND ABDOMEN (N/A) APPLICATION WOUND VAC ABDOMEN TOTAL WOUND SURFACE LESS THAN 50 SQ CENTIMETERS (N/A) Surgeon(s): Costa Ramon (Luther Luz Estimated body mass index is 31.54 kg/m? [...] mL (PRECEDEX) 0.2-0.7 mcg/kg/hr INTRAVENOUS CONTINUOUS Paulo (Clinical Applications Manager) Radu Last Rate: 9.67 mL/hr at 01/21/18 0730 0.4 mcg/kg/hr at 01/21/18729 [MAR Hold due to Transfer] Parenteral Nutrition - Adult INTRAVENOUS ONCE TPN (1800 START) Perla Pineda Octavia Last Rate: 75 mL/hr at 01/21/18729 [MAR Hold due to Transfer] carboxymethylcellulose sodium 1- 2 Drop (CELLUVISC) 1-2 Drop BOTH EYES PRN Venkat Paniagua [MAR Hold due to Transfer] polyvinyl alcohol-povidone 1.4- 0.6 % 1 Drop (REFRESH) 1 Drop BOTH EYES QID PRN Paulo (Clinical Applications Manager) Radu 1 Drop at 01/19/182314 [MAR Hold due to Transfer] propofol infusion (DIPRIVAN) 0- 15 mcg/kg/min (Adjusted) INTRAVENOUS CONTINUOUS Dionicio (Res) Stevens Last Rate: 7.44 mL/hr at 01/21/1845 15 mcg/kg/min at 01/21/18744 [MAR Hold due to Transfer] hydrocortisone sodium succinate (PF) 50 mg injection (Solu-CORTEF) 50 mg INTRAVENOUS q 8 H Shen Lorenzo 50 mg at 01/21/18529 [MAR Hold due to Transfer] heparin 1,000 [...] mL/hr at 01/21/18 0530 3 g at 01/21/1830 [MAR Hold due to Transfer] NaCl 0.9% [...] H Elder Yu) Kalee 15 mL at 01/21/18 0740 Allergies: ALLERGIES [...] January 21, 2018 TIME: 10:10 AM CSN: [id number] PROGRESS Observed: 01/21/2018 Status: COMPLETED Source: [place] 9:35 AM CLINIC OTHER CAMPUS REPOSITORY HNO ID: [id number] Author: Vicky Devi MD Service: Nephrology Author [...] MD PROGRESS Observed: 01/21/2018 Status: COMPLETED Source: [place] 9:06 AM [facility] OTHER CAMPUS REPOSITORY HNO ID: [id number] Author: Herman Sutton Service: Critical Care Author [...] AM PROGRESS Observed: 01/21/2018 Status: COMPLETED Source: [place] 6:32 AM CLINIC OTHER CAMPUS REPOSITORY HNO ID: [id number] Author: Dionicoi (Res) Rodney Service: Vascular Surgery Author Type: [...] Therapy: Ventilator IANDO: Date 01/20/18 07 - 01/21/1865801/21/18 07 - 01/22/18 0659 Shift 3451-5852 3636-8699 1703-1893 24 Hour Total 2959-0127 6947-9310 9189-1315 24 Hour Total I N T A K E IV 37 138 539.9 714.9 NS 0.9% 10 31 57 98 Fentanyl Volume 5 23.5 61.5 90 Dexmedetomidine IV 25.5 75 100.5 NORepinephrine Volume 3 30 73.4 106.4 Propofol IV 19 28 73 120 Ampicillin/Sulbactam (Unasyn) IV 200 200 TPN/PPN 103 237 520 860 TPN 103 237 520 860 Shift Total 317 954 9485.9 1574.9 O U T P U T Urine Urine Incontinence/Not Saved 2 x 2 x Tubes 100 8490 106 4102 Drain/Tube Output (Drain/Tube 01/19/18 1015 Midline Abdomen) 50 309 662 2094 Drain/Tube Output (Drain/Tube 01/12/18 Fecal Management System) 0 0 0 0 Output (GI Feed/Drain 01/12/18 0100) 50 150 50 250 Dialysis 2039 2357 2498 6895 Dialysis Output (Ultrafiltration) 2039 2356 2498 6895 Shift Total 2140 3407 2648 [...] Noted - Ruptured abdominal aortic aneurysm (AAA) ([facility]) 01/12/2018 - Obesity, Class I, BMI 30-34.9 01/16/2018 - Encephalopathy 01/13/2018 - DIC (disseminated intravascular coagulation) ([facility]) 01/12/2018 - Hemorrhagic shock ([facility]) 01/12/2018 - Acute respiratory failure ([facility]) 01/12/2018 - Cardiac arrest ([facility]) 01/12/2018 - Hypernatremia 01/12/2018 - Hypokalemia 01/12/2018 - Hypomagnesemia 01/12/2018 - Hypophosphatemia 01/12/2018 - Hyperchloremia 01/12/2018 - AAA (abdominal aortic aneurysm, ruptured) ([facility]) 01/12/2018 Overview Note: Added automatically from request for surgery [id number] 77 year old male with Ruptured AAA [...] 1 VIEW Observed: 01/21/2018 Status: F Source: [facility] 5:19 AM [employer] SYSTEM REPOSITORY Performed at [facility] APPROVED BY: Megan Duarte MD Exam: Portable view of the chest dated 01/21/2018 05:10. Indication: Respiratory Failure. Comparison: 01/20/2018. Findings: Support devices remain unchanged. Parenchymal consolidation and small left pleural effusion are grossly similar to prior study. No visible pneumothorax. Cardiac and mediastinal contours remain unchan ged. No acute osseous abnormalities are appreciated. IMPRESSION: Stable portable chest. HEMOGRAM/DIFF Collected: 01/21/2018 Status: F Source: [facility] 4:30 AM HEALTH SYSTEM REPOSITORY TYPE CODE [...] 0.80 LAB MONON(LOIN 0.30-0.82 thou/cmm C) Abs. Hunt 0.53 LAB EOSN(LOINC 0.04-0.54 thou/cmm ) Low Abs. Eosin 0.02 LAB BASON(LOIN 0.01-0.08 thou/cmm C) Abs. Baso 0.04 Result Comment: Smear scanned; tech agrees with automated differential Performed By: #### CBCD1 #### [place] [address] MAGNESIUM BLOOD Collected: 01/21/2018 Status: F Source: [facility] 4:30 AM [facility] SYSTEM REPOSITORY TYPE CODE TESTS RESULT OUT OF REFERENCE UNITS RANGE LAB MAG(LOINC) 1.6-2.6 mg/dL High Magnesium Blood 2.7 Performed By: #### MAG #### [place] [address] PHOSPHORUS BLOOD Collected: 01/21/2018 Status: F Source: [facility] 4:30 AM [facility] SYSTEM REPOSITORY TYPE CODE TESTS RESULT OUT OF REFERENCE UNITS RANGE LAB PHOS(LOINC 2.5-4.9 mg/dL ) Phosphorus Blood 4.0 Performed By: #### PHOS #### [facility] [address] [place], [place] [address] BASIC PANEL Collected: 01/21/2018 Status: F Source: [facility] 4:30 AM HEALTH SYSTEM REPOSITORY TYPE CODE [...] Gap 14 Performed By: #### P8 #### [facility] [address] [place], [place] [address] OPERATIVE NO Observed: 01/21/2018 Status: COMPLETED Source: [place] 12:00 AM CLINIC OTHER CAMPUS REPOSITORY O ID: [id number] Author: Costa Miguel Service: Gastroenterology Surgery Author Type: Physician Type: Operative Report Filed: 01/22/2018 1:54 PM Note Text: [facility] - Operative Report SURGEON: Costa Miguel MD PATIENT NAME: NAVEEN AKINS CSN: [id number] DATE OF SURGERY: 01/21/2018 DATE OF : 1940 SEX/AGE: M/77 PATIENT TYPE: I HOSP SV: LICO LOCATION: [id number] DATE OF SURGERY: 01/21/2018 SURGEON: Costa Miguel MD PREOPERATIVE DIAGNOSIS: Open abdomen. POSTOPERATIVE DIAGNOSIS: Open abdomen. PROCEDURE: Limited abdominal exploration and closure of wound with abdominal wound with retention sutures. REGISTERED ROUTE ASSOCIATE: Dr. Peralta and Dr. Tristen Luz. ANESTHESIA: [...] procedure well. Costa Miguel MD Surgery WJC:modl /[id number] BLOOD GAS ARTERIAL Collected: 01/20/2018 Status: F Source: [facility] 10:10 PM HEALTH SYSTEM REPOSITORY TYPE CODE [...] Excess -4.0 Performed By: #### ABG #### [facility] [address] [place] [address] BLOOD GAS ARTERIAL Collected: 01/20/2018 Status: F Source: [facility] 4:20 PM HEALTH SYSTEM REPOSITORY TYPE CODE [...] Excess -4.1 Performed By: #### ABG #### [facility] [address] [place] [address] HEMOGRAM Collected: 01/20/2018 Status: F Source: [facility] 4:20 PM HEALTH SYSTEM REPOSITORY TYPE CODE [...] 0.16 Absolute Performed By: #### CBC1 #### [facility] [address] [place] [address] US THORACENTESIS WITH Observed: 01/20/2018 Status: F Source: [facility] IMAGING GUIDANCE [address] 2:53 PM HEALTH SYSTEM REPOSITORY Performed at [facility] APPROVED BY: Cely Correa CNP EXAM TITLE: ULTRASOUND GUIDED RIGHT THORACENTESIS DATE: 01/20/2018 14:00 COMPARISON: Chest x-ray dated 01/20/2018 CLINICAL INDICATION/HISTORY: Bilateral pleural effusions TECHNIQUE: Informed consent was obtained from the patient's . The patient was placed in a lateral recumbent position and ultrasound interrogated the right hemithorax. An appropriate skin entrance site was identified, prepped, and anesthetized. Under ultrasound guidance a 5-Monegasque Yueh needle was passed into the pleural [...] 1 VIEW Observed: 01/20/2018 Status: F Source: [facility] 2:52 PM HEALTH SYSTEM REPOSITORY Performed at [facility] APPROVED BY: Skip Hickey MD EXAM TITLE: [...] OP NOT Observed: 01/20/2018 Status: COMPLETED Source: [place] 2:31 PM CLINIC OTHER CAMPUS REPOSITORY HNO ID: [id number] Author: Celychucky Correa Service: (none) Author Type: Nurse Practitioner Type: Brief Op Note Filed: 01/20/2018 2:32 PM Note Text: THORACENTESIS NOTE SERVICE DATE: 01/20/2018 SERVICE TIME: 2:15 PM PROCEDURE: Right thoracentesis with Ultrasound guidance DESIGN CHECKER: Cely Correa APRN.CNP REGISTERED ROUTE ASSOCIATE: None PRE - PROCEDURE DIAGNOSIS: Pleural effusion [...] CELL COUNT/DIFF Collected: 01/20/2018 Status: F Source: [facility] 2:25 PM HEALTH SYSTEM REPOSITORY TYPE CODE [...] malignant cells. Performed By: #### BFCD #### [place] [address] PH, BODY FLUID Collected: 01/20/2018 Status: F Source: [facility] 2:25 PM [facility] SYSTEM REPOSITORY TYPE CODE TESTS RESULT OUT OF REFERENCE UNITS RANGE LAB BFTYP(LOIN C) Specimen Type Pleural LAB PHBFL(LOIN C) pH, Body Fluid 7.560 Performed By: #### PHBF #### [place] [address] Observed: 01/20/2018 Status: F Source: [facility] 2:25 PM HEALTH SYSTEM FLUID REPOSITORY Test performed at [facility] No growth No organisms seen Performed By: #### C_BF #### [place] [address] MISC. TEST Collected: 01/20/2018 Status: F Source: [facility] 2:25 PM HEALTH SYSTEM REPOSITORY TYPE CODE [...] document C49A. WILLIE Pacheco: [facility]: 2007. This test was developed and its performance characteristics determined by [facility]'s [facility] ([facility]). It has not been cleared or approved by the FDA. -[facility] is regulated under CLIA as qualified to perform high-complexity testing. This test is used for clinical purposes. It should not be regarded as investigational or for research. Performing Laboratory: [facility] [address] [place] [address] Performed By: #### GOX #### [place] [address] Observed: 01/20/2018 Status: F Source: [facility] [employer] 2:25 PM HEALTH SYSTEM (TB) REPOSITORY Test performed at [facility] No acid fast bacilli cultured No acid fast bacilli seen Performed By: #### C_AFB #### [place] [address] Observed: 01/20/2018 Status: F Source: [facility] 2:25 PM HEALTH SYSTEM REPOSITORY Test performed at [facility] No fungus (yeast or mold) cultured Performed By: #### C_FUN #### [place] [address] CYTOLOGY, MEDICAL Observed: 01/20/2018 Status: F Source: [facility] 2:25 PM HEALTH SYSTEM REPOSITORY Test performed at [place] [address] NAME: NAVEEN AKINS REQUESTING: VENKAT PANIAGUA M.D. [...] of 1 Performed By: #### CYTOM #### [place] [place] [address] PROGRESS Observed: 01/20/2018 Status: COMPLETED Source: [facility] 1:29 PM CLINIC OTHER CAMPUS REPOSITORY HNO ID: [id number] Author: Paulo Lovelace (Cns) Service: Critical Care [...] 0757) Total Respiratory Rate (BPM): 28 (01/20/18 124) Tidal Volume Set (mL): 480 (01/20/18 124) Exhaled Tidal Volume (mL): 358 (01/20/18 124) Minute Volume (L): 18.1 (01/20/18 124) Peak Inspiratory Pressure (cm H2O): 13 (01/20/18 0757) PEEP/CPAP (cm H2O): 10 (01/20/18 1243) HEMODYNAMIC DATA: Reviewed NUTRITION: Enteral Feeds: pt [...] GAS ARTERIAL Collected: 01/20/2018 Status: F Source: [facility] 10:50 AM HEALTH SYSTEM REPOSITORY TYPE CODE [...] FIO2 90 Performed By: #### ABG #### [place] [address] HEMOGRAM Collected: 01/20/2018 Status: F Source: [facility] 10:50 AM HEALTH SYSTEM REPOSITORY TYPE CODE [...] Absolute 0.16 Performed By: #### CBC1 #### [facility] [address] [place] [address] CASE MANAGEM Observed: 01/20/2018 Status: COMPLETED Source: [place] 10:31 AM [facility] REPOSITORY HNO ID: [id number] Author: Fifi TylerRn) MAGALY Coker Service: Care Management Author Type: Registered Nurse Type: Care Mgt Progress Note Filed: 01/20/2018 10:31 AM Note Text: Cont to followto assst with discharge plan. Plan for OR on Sat. 01/21 for attempted closure of surgical wound. PROGRESS Observed: 01/20/2018 Status: COMPLETED Source: [place] 10:12 AM CLINIC OTHER [place] REPOSITORY HNO ID: [id number] Author: Troy Godoy Service: Nephrology Author Type: [...] reviewed PROGRESS Observed: 01/20/2018 Status: COMPLETED Source: [place] 9:22 AM [facility] OTHER CAMPUS REPOSITORY [facility] ID: [id number] Author: Herman Sutton Service: Critical Care Author [...] AM PROGRESS Observed: 01/20/2018 Status: COMPLETED Source: [place] 8:49 AM [facility] REPOSITORY [facility] ID: [id number] Author: Hermelinda Ferrell Service: General Surgery Author Type: Resident Type: Progress Notes Filed: 01/20/2018 8:53 AM Note Text: Attestation signed by Costa Miguel at 01/20/2018 1:35 PM I saw and evaluated the patient. I reviewed the resident's note and agree. Costa Miguel MD, FACS, [facility] PROGRESS NOTES SERVICE DATE: 01/20/2018 Subjective [...] 01/20/18 0659 01/20/18699 - 01/21/18 0659 Shift 3400-3761 6501-9599 4636-7314 24 Hour Total 0417-3249 1000-6257 5615-2896 24 Hour Total I N T A K E IV 5335 834 4848 37 37 IVPB 79 79 NS 0.9% 756 41 797 10 10 Calcium IVPB 147 147 Fentanyl Volume 54 25 79 5 5 Dexmedetomidine IV 45 45 NORepinephrine Volume 78 50 128 3 3 Propofol IV 159 208 367 19 19 Ampicillin/Sulbactam (Unasyn) IV 100 200 300 TPN/PPN 9417 373 1481 103 103 TPN 8472 479 9435 103 103 Shift Total 2868 1313 4181 [...] Noted - Ruptured abdominal aortic aneurysm (AAA) ([facility]) 01/12/2018 - Obesity, Class I, BMI 30-34.9 01/16/2018 - Encephalopathy 01/13/2018 - DIC (disseminated intravascular coagulation) ([facility]) 01/12/2018 - Hemorrhagic shock ([facility]) 01/12/2018 - Acute respiratory failure ([facility]) 01/12/2018 - Cardiac arrest ([facility]) 01/12/2018 - Hypernatremia 01/12/2018 - Hypokalemia 01/12/2018 - Hypomagnesemia 01/12/2018 - Hypophosphatemia 01/12/2018 - Hyperchloremia 01/12/2018 - AAA (abdominal aortic aneurysm, ruptured) ([facility]) 01/12/2018 Overview Note: Added automatically from request for surgery [id number] 77 year old male with Ruptured AAA [...] questions or concerns Mon-Fri 6a-5p please page [phone]. After 5pm and on Weekends and Holidays, please page [phone] if in ICU or [phone] if on RNF. NURSING PROG Observed: 01/20/2018 Status: COMPLETED Source: [place] 6:31 AM CLINIC OTHER CAMPUS REPOSITORY O ID: [id number] Author: Abbi (Rn) MAGALY Meneses Service: Nursing Author Type: Registered [...] xray. PROGRESS Observed: 01/20/2018 Status: COMPLETED Source: [place] 6:23 AM CLINIC OTHER CAMPUS REPOSITORY HNO ID: [id number] Author: Dionicio (Luther Stevens Service: Vascular Surgery [...] Ventilator IANDO: Date 01/19/18699 - 01/20/18 0659 01/20/18 07 - 01/21/18 0659 Shift 2307-5429 5556-8888 7192-3534 24 Hour Total 0677-3820 5769-7616 1625-1190 24 Hour Total I N T A K E IV 6247 908 5914 IVPB 79 79 NS 0.9% 756 41 797 Calcium IVPB 147 147 Fentanyl Volume 54 25 79 Dexmedetomidine IV 45 45 NORepinephrine Volume 78 50 128 Propofol IV 159 208 367 Ampicillin/Sulbactam (Unasyn) IV 100 200 300 TPN/PPN 5501 294 6451 TPN 9442 572 7848 Shift Total 2868 1313 4181 O U [...] 1058 1777 2975 Shift Total 140 1258 2125 3525 Weight (kg) 104.2 104.2 104.2 104.2 [...] Noted - Ruptured abdominal aortic aneurysm (AAA) ([facility]) 01/12/2018 - Obesity, Class I, BMI 30-34.9 01/16/2018 - Encephalopathy 01/13/2018 - DIC (disseminated intravascular coagulation) ([facility]) 01/12/2018 - Hemorrhagic shock ([facility]) 01/12/2018 - Acute respiratory failure ([facility]) 01/12/2018 - Cardiac arrest ([facility]) 01/12/2018 - Hypernatremia 01/12/2018 - Hypokalemia 01/12/2018 - Hypomagnesemia 01/12/2018 - Hypophosphatemia 01/12/2018 - Hyperchloremia 01/12/2018 - AAA (abdominal aortic aneurysm, ruptured) ([facility]) 01/12/2018 Overview Note: Added automatically from request for surgery [id number] 77 year old male with Ruptured AAA [...] 1 VIEW Observed: 01/20/2018 Status: F Source: [facility] 5:31 AM HEALTH SYSTEM REPOSITORY Performed at [facility] APPROVED BY: Teddy Mota MD EXAMINATION: CHEST [...] change HEMOGRAM/DIFF Collected: 01/20/2018 Status: F Source: [facility] 3:45 AM HEALTH SYSTEM REPOSITORY TYPE CODE [...] Lymph 0.64 LAB MONON(LOINC) 0.30-0.82 thou/cmm Abs. Hunt 0.75 LAB EOSN(LOINC) 0.04-0.54 thou/cmm Abs. Eosin 0.04 LAB BASON(LOINC) 0.01-0.08 thou/cmm Abs. Baso 0.03 Performed By: #### CBCD1 #### [facility] [address] [place] [address] HEPATIC PANEL Collected: 01/20/2018 Status: F Source: [facility] 3:45 AM HEALTH SYSTEM REPOSITORY TYPE CODE [...] Blood 57 Performed By: #### HEPAP #### [place] [address] BASIC PANEL Collected: 01/20/2018 Status: F Source: [facility] 3:45 AM HEALTH SYSTEM REPOSITORY TYPE CODE [...] Blood 186 Performed By: #### P8 #### [place] [address] MAGNESIUM BLOOD Collected: 01/20/2018 Status: F Source: [facility] 3:45 AM HEALTH SYSTEM REPOSITORY TYPE CODE TESTS RESULT OUT OF REFERENCE UNITS RANGE LAB MAG(LOINC) 1.6-2.6 mg/dL Magnesium Blood 2.6 Performed By: #### MAG #### [place] [address] PHOSPHORUS BLOOD Collected: 01/20/2018 Status: F Source: [facility] 3:45 AM HEALTH SYSTEM REPOSITORY TYPE CODE TESTS RESULT OUT OF REFERENCE UNITS RANGE LAB PHOS(LOINC 2.5-4.9 mg/dL ) High Phosphorus Blood 5.2 Performed By: #### PHOS #### [place] [address] PROGRESS Observed: 01/19/2018 Status: COMPLETED Source: [place] 6:04 PM CLINIC OTHER CAMPUS REPOSITORY O ID: [id number] Author: Herman Sutton Service: Critical Care Author [...] ANES POST Observed: 01/19/2018 Status: COMPLETED Source: [place] 5:08 PM CLINIC OTHER CAMPUS REPOSITORY O ID: [id number] Author: Derian Barlow Service: Anesthesiology Author Type: [...] GAS ARTERIAL Collected: 01/19/2018 Status: F Source: [facility] 4:30 PM HEALTH SYSTEM REPOSITORY TYPE [...] Excess -4.3 Performed By: #### ABG #### [facility] [address] [place] [address] HEMOGRAM Collected: 01/19/2018 Status: F Source: [facility] 4:30 PM HEALTH SYSTEM REPOSITORY TYPE CODE [...] 0.07 Absolute Performed By: #### CBC1 #### [place] [address] BASIC PANEL Collected: 01/19/2018 Status: F Source: [facility] 4:30 PM HEALTH SYSTEM REPOSITORY TYPE CODE [...] Gap 14 Performed By: #### P8 #### [place] [address] PREALBUMIN Collected: 01/19/2018 Status: F Source: [facility] 4:30 PM HEALTH SYSTEM REPOSITORY TYPE CODE TESTS RESULT OUT OF REFERENCE UNITS RANGE LAB PAB(LOINC) 20.0-40.0 mg/dL Low Prealbumin 11.8 Performed By: #### PAB #### [facility] [address] [place] [id number] NURSING PROG Observed: 01/19/2018 Status: COMPLETED Source: [place] 4:00 PM [facility] REPOSITORY HNO ID: [id number] Author: Megan TylerRn) MAGALY Chino Service: Dialysis Author Type: Registered Nurse Type: Nursing Progress Note Filed: 01/19/2018 7:42 PM Note Text: CRRT system set up after new line with previous settings.BFR 150 pre pump 700 dialysate 700 replacement 700 ufr 350. Good flow from catheter. Hemosafe on x2 PROGRESS Observed: 01/19/2018 Status: COMPLETED Source: [place] 3:04 PM [facility] REPOSITORY HNO ID: [id number] Author: Troy Godoy Service: Nephrology Author Type: [...] CASE MANAGEM Observed: 01/19/2018 Status: COMPLETED Source: [place] 2:24 PM [facility] REPOSITORY HNO ID: [id number] Author: Steve TylerRn) Miguel, RN Service: Care Management Author Type: Registered Nurse Type: Care Mgt Progress Note Filed: 01/19/2018 2:28 PM Note Text: Pt to OR today for ex-lap, washout, partial closure, and wound vac change. Remains on IV ABX, precedex, and levo. Will continue to follow for transitional needs. ANES PREOP Observed: 01/19/2018 Status: COMPLETED Source: [place] 1:52 PM [facility] REPOSITORY HNO ID: [id number] Author: Derian Barlow Service: Anesthesiology Author Type: Physician Type: Anesthesia PreOp Filed: 01/19/2018 1:54 PM Note Text: ANESTHESIOLOGY DAY OF SURGERY NOTE SERVICE DATE: 01/19/2018 SERVICE TIME: 08 : 1940 Procedure(s) (LRB): EXPLORATORY LAPAROTOMY, WASHOUT, [...] January 19, 2018 TIME: 1:52 PM CSN: [id number] PROGRESS Observed: 01/19/2018 Status: COMPLETED Source: [place] 12:52 PM [facility] REPOSITORY HNO ID: [id number] Author: Nohemi (Rn) MAGALY Marquez Service: Nursing Author Type: Registered Nurse Type: Progress Notes Filed: 01/19/2018 12:54 PM Note Text: 0800 CRRT off blood returned. 0820 To Or with anesthesia 1130 Back from Or. Dialysis called to restart CRRT PROGRESS Observed: 01/19/2018 Status: COMPLETED Source: [place] 12:36 PM [facility] REPOSITORY HNO ID: [id number] Author: Shen Lorenzo Service: Nephrology Author Type: [...] INTRAVENOUS ONCE TPN (1800 START) Perla Dudley dexmedetomidine 400 mcg in NaCl 0.9% 100 mL (PRECEDEX) 0-0.7 mcg/kg/hr INTRAVENOUS CONTINUOUS Dionicio (Res) Stevens Parenteral Nutrition - Adult INTRAVENOUS ONCE TPN (1800 START) H Edwin Octavia Last Rate: 100 mL/hr at 01/19/18 0800 [...] do not hesitate to contact me at [phone] if there is any question or concern. Rosanna Talbert MD (Shen Lorenzo) O2% MEASURED VENOUS Collected: 01/19/2018 Status: F Source: [facility] 12:20 PM HEALTH SYSTEM REPOSITORY TYPE CODE TESTS RESULT OUT OF REFERENCE UNITS RANGE LAB O2%MV(LOINC 70.0-80.0 % ) O2% Measured 77.8 Venous Performed By: #### O2%MV #### [facility] [address] [place] [address] HEMOGRAM Collected: 01/19/2018 Status: F Source: [facility] 12:20 PM HEALTH SYSTEM REPOSITORY TYPE CODE [...] Absolute 0.03 Performed By: #### CBC1 #### [facility] [address] [place] [address] CHEST 1 VIEW Observed: 01/19/2018 Status: F Source: [facility] 12:16 PM HEALTH SYSTEM REPOSITORY Performed at [facility] APPROVED BY: Yahir Grande MD EXAM TITLE: [...] GAS ARTERIAL Collected: 01/19/2018 Status: F Source: [facility] 12:15 PM HEALTH SYSTEM REPOSITORY TYPE CODE [...] Excess -4.4 Performed By: #### ABG #### [facility] [address] [place] [address] ALLIED HEALTH Observed: 01/19/2018 Status: COMPLETED Source: [place] 11:09 AM CLINIC OTHER CAMPUS REPOSITORY HNO ID: [id number] Author: Chaplain Serna (Chaplain) Service: Spiritual Care Author Type: Crack Off Person Type: Allied Health Filed: 01/19/2018 11:32 AM Note Text: SPIRITUALCARE Spiritual Care Visit- Brief Note Name: Naveen Akins Date: January 19, 2018 Notes: Checked in w/fam in 3d fl WR--pt is out of surgery and in recovery. Empathetic listening; ministry of presence. Crack Off Person Signature: Chaplain Daphne To contact the Spiritual Care Department: Please call [phone] or Page the On-Call Crack Off Person at pager [phone] Thank you for the opportunity to be of service. This is an electronically created document. IF PRINTED, PLEASE DO NOT REMOVE FROM THE CHART OR MODIFY PRINTED COPY. BRIEF OP NOT Observed: 01/19/2018 Status: COMPLETED Source: [place] 10:26 AM [facility] REPOSITORY HNO ID: [id number] Author: Hermelinda Ferrell Service: General Surgery Author Type: Resident Type: Brief Op Note Filed: 01/19/2018 10:28 AM Note Text: BRIEF OPERATIVE / PROCEDURE NOTE LOG ID: [id number] Patient Name:Naveen Akins CSN: [id number] Surgery/Procedure Date: 01/19/2018 Incision/Procedure Start Time: 9:00 AM Incision Close/Procedure End Time: Surgeon(s)/Proceduralist(s) and Mutuel Department Manager(s): Surgeon(s) and Role: * Venkat Paniagua - Primary * Costa Miguel - Assisting * Hermelinda Ferrell - Resident - Assisting Digital Technician: Hailey Dixon SA Procedure(s): Procedure(s) (LRB): EXPLORATORY [...] 2018 TIME: 10:26 AM PAGER/CONTACT #: [phone] PROGRESS Observed: 01/19/2018 Status: COMPLETED Source: [place] 9:01 AM [facility] REPOSITORY HNO ID: [id number] Author: Mervin Lo Service: General Surgery Author Type: Resident Type: Progress Notes Filed: 01/19/2018 9:02 AM Note Text: Attestation signed by Costa Miguel at 01/19/2018 1:43 PM I saw and evaluated the patient. I reviewed the resident's note and agree. Costa Miguel MD, FACS, [facility] PROGRESS NOTES SERVICE DATE: 01/19/2018 [...] 34.93 kg/m? O2 Therapy: Ventilator IANDO: Date 01/18/18699 - 01/19/18 0601/19/18699 - 01/20/18 0659 Shift 2711-7793 0149-2541 5279-9366 24 Hour Total 6657-1901 1078-4350 8115-9545 24 Hour Total I N T A K E IV 1190.6 157.6 1348.2 Calcium IVPB 250 250 Fentanyl Volume 71.6 89.6 161.2 Amiodarone 176 176 NORepinephrine Volume 256 68 324 Propofol IV 37 37 Ampicillin/Sulbactam (Unasyn) IV 400 400 TPN/PPN 1210 1210 TPN 1210 1210 Shift Total 2400.6 157.6 2558.2 O U T P U T Tubes 650 318 657 5327 Drain/Tube Output (Drain/Tube 01/12/18 0100 Hemovac Midline Anterior Abdomen) 650 404 265 2136 Drain/Tube Output (Drain/Tube 01/12/18 Fecal Management System) 0 20 20 Output (GI Feed/Drain 01/12/18 0100) 0 0 Dialysis 1647 670 192 4151 Dialysis Output (Ultrafiltration) 1647 150 215 7637 Shift Total 2297 9983 341 9163 Weight (kg) 104.2 104.2 104.2 104.2 104.2 [...] Noted - Ruptured abdominal aortic aneurysm (AAA) ([facility]) 01/12/2018 - Obesity, Class I, BMI 30-34.9 01/16/2018 - Encephalopathy 01/13/2018 - DIC (disseminated intravascular coagulation) ([facility]) 01/12/2018 - Hemorrhagic shock ([facility]) 01/12/2018 - Acute respiratory failure ([facility]) 01/12/2018 - Cardiac arrest ([facility]) 01/12/2018 - Hypernatremia 01/12/2018 - Hypokalemia 01/12/2018 - Hypomagnesemia 01/12/2018 - Hypophosphatemia 01/12/2018 - Hyperchloremia 01/12/2018 - AAA (abdominal aortic aneurysm, ruptured) ([facility]) 01/12/2018 Overview Note: Added automatically from request for surgery [id number] 77 year old male with Ruptured AAA [...] January 19, 2018 TIME: 9:01 AM Pager: [phone] Emergency General Surgery Service Pager: For questions or concerns Tue-Tue-5p please page [phone]. After 5pm and on Weekends and Holidays, please page [phone] if in ICU or [phone] if on RNF. PROGRESS Observed: 01/19/2018 Status: COMPLETED Source: [place] 6:24 AM [facility] OTHER CAMPUS REPOSITORY O ID: [id number] Author: Dionicio (Res) Rodney Service: Vascular Surgery Author Type: Resident Type: Progress Notes Filed: 01/19/2018 8:48 AM Note Text: Vascular Surgery Progress Note SERVICE DATE: 01/19/2018 Vascular AND Thoracic Surgery Service Pager: For questions or concerns Tue-Tue 6a-5p please page [phone]. After 5pm and on Weekends and Holidays, [...] 0659 01/19/18 07 - 01/20/18 0659 Shift 6259-5554 5294-7297 4232-4830 24 Hour Total 0698-3974 7640-3841 9425-5253 24 Hour Total I N T A [...] Feed/Drain 01/12/18 0100) 0 0 Dialysis 1647 076 593 3310 Dialysis Output (Ultrafiltration) 1647 838 077 7779 Shift Total 2297 4613 583 9112 Weight (kg) 104.2 104.2 104.2 104.2 104.2 [...] Noted - Ruptured abdominal aortic aneurysm (AAA) ([facility]) 01/12/2018 - Obesity, Class I, BMI 30-34.9 01/16/2018 - Encephalopathy 01/13/2018 - DIC (disseminated intravascular coagulation) ([facility]) 01/12/2018 - Hemorrhagic shock ([facility]) 01/12/2018 - Acute respiratory failure ([facility]) 01/12/2018 - Cardiac arrest ([facility]) 01/12/2018 - Hypernatremia 01/12/2018 - Hypokalemia 01/12/2018 - Hypomagnesemia 01/12/2018 - Hypophosphatemia 01/12/2018 - Hyperchloremia 01/12/2018 - AAA (abdominal aortic aneurysm, ruptured) ([facility]) 01/12/2018 Overview Note: Added automatically from request for surgery [id number] 77 year old male with Ruptured AAA [...] 1 VIEW Observed: 01/19/2018 Status: F Source: [facility] 5:15 AM HEALTH SYSTEM REPOSITORY Performed at [facility] APPROVED BY: Yahir Grande MD EXAM TITLE: [...] IONIZED CALCIUM Collected: 01/19/2018 Status: F Source: [facility] 4:50 AM HEALTH SYSTEM REPOSITORY TYPE CODE TESTS RESULT OUT OF REFERENCE UNITS RANGE LAB CAION(LOINC 4.43-4.93 mg/dL ) Low Ionized 4.16 Calcium LAB PHCAI(LOINC 7.320-7.420 ) pH 7.325 LAB CAPH(LOINC) 4.36-4.73 mg/dL Low Ionized 4.00 Ca,PH7.4 Performed By: #### IONCA #### [facility] [address] [place] [address] HEMOGRAM/DIFF Collected: 01/19/2018 Status: F Source: [facility] 4:50 AM HEALTH SYSTEM REPOSITORY TYPE CODE [...] 0.54 LAB MONON(LOIN 0.30-0.82 thou/cmm C) Abs. Hunt 0.43 LAB EOSN(LOINC 0.04-0.54 thou/cmm ) Low Abs. Eosin 0.01 LAB BASON(LOIN 0.01-0.08 thou/cmm C) Abs. Baso 0.03 Performed By: #### CBCD1 #### [place] [address] BASIC PANEL Collected: 01/19/2018 Status: F Source: [facility] 4:50 AM HEALTH SYSTEM REPOSITORY TYPE CODE [...] Gap 13 Performed By: #### P8 #### [place] [address] MAGNESIUM BLOOD Collected: 01/19/2018 Status: F Source: [facility] 4:50 AM HEALTH SYSTEM REPOSITORY TYPE CODE TESTS RESULT OUT OF REFERENCE UNITS RANGE LAB MAG(LOINC) 1.6-2.6 mg/dL Magnesium Blood 2.6 Performed By: #### MAG #### [place] [address] PHOSPHORUS BLOOD Collected: 01/19/2018 Status: F Source: [facility] 4:50 AM HEALTH SYSTEM REPOSITORY TYPE CODE TESTS RESULT OUT OF REFERENCE UNITS RANGE LAB PHOS(LOINC 2.5-4.9 mg/dL ) Phosphorus Blood 2.7 Performed By: #### PHOS #### [place] [address] OPERATIVE NO Observed: 01/19/2018 Status: COMPLETED Source: [facility] 12:00 AM CLINIC OTHER CAMPUS REPOSITORY O ID: [id number] Author: Costa Miguel Service: Gastroenterology Surgery Author Type: Physician Type: Operative Report Filed: 01/20/2018 4:15 PM Note Text: [facility] - Operative Report SURGEON: Costa Miguel MD PATIENT NAME: NAVEEN AKINS CSN: [id number] DATE OF SURGERY: 01/19/2018 DATE OF : 1940 SEX/AGE: M/77 PATIENT TYPE: I HOSP SVC: LICO LOCATION: [id number] DATE OF SURGERY: 01/19/2018 SURGEON: Costa Miguel MD PREOPERATIVE DIAGNOSIS: Open abdomen status post rupture of aneurysm. POSTOPERATIVE DIAGNOSIS: Open abdomen status post rupture of aneurysm. PROCEDURE: Exploratory laparotomy, partial closure of open abdomen and placement of ABThera wound VAC. REGISTERED ROUTE ASSOCIATE: Hermelinda Ferrell MD; and Hailey, surgical endoscopist. ANESTHESIA: General. INDICATIONS: Open abdomen, critically ill [...] then we started closing superiorly initially with syvryz-ks-jfdjy sutures of #1 PDS, switching to running [...] provide assistance. Costa Miguel MD Surgery WJC:modl /[id number] HEMOGRAM Collected: 01/18/2018 Status: F Source: [facility] 11:05 PM HEALTH SYSTEM REPOSITORY TYPE CODE [...] 0.03 Absolute Performed By: #### CBC1 #### [place] [address] PROGRESS Observed: 01/18/2018 Status: COMPLETED Source: [facility] 10:02 PM CLINIC OTHER CAMPUS REPOSITORY O ID: [id number] Author: Herman Sutton Service: Critical Care Author [...] SIGNATURE: Herman Sutton MD PATIENT NAME: Naveen Akisn DATE: January 18, 2018 TIME: 10:03 PM ALLIED HEALTH Observed: 01/18/2018 Status: COMPLETED Source: [place] 6:15 PM [facility] OTHER CAMPUS REPOSITORY O ID: [id number] Author: Chaplain Barbosa (Chaplain) Service: Spiritual Care Author Type: Crack Off Person Type: Allied Health Filed: 01/18/2018 6:21 PM Note Text: SPIRITUALCARE Spiritual Care Visit- Brief Note Name: Naveen Akins Date: January 18, 2018 Notes: Pre-surgery reconciliation specialist visit: Crack Off Person introduced himself and role/availability to Pt's daughter who was standing at bedside. Pt partially alert and unable to respond verbally. Pt's daughter indicated the Pt has endured 5 previous surgeries and is scheduled for his 6th the following day. Crack Off Person listened emphatically and confirmed how difficult the journey has been. Pt's daughter stated the family is well supported and has been present around the clock. Crack Off Person provided spiritual comfort and prayers as desired. Pt's daughter grateful for reconciliation specialist visit/prayers and provided reconciliation specialist with a hug. Pt/family would benefit from ongoing SC/support. Crack Off Person to remain available. Crack Off Person Signature: Chaplain Familia To contact the Spiritual Care Department: Please call [phone] or Page the On-Call Crack Off Person at pager [phone] Thank you for the opportunity to be of service. This is an electronically created document. IF PRINTED, PLEASE DO NOT REMOVE FROM THE CHART OR MODIFY PRINTED COPY. PROGRESS Observed: 01/18/2018 Status: COMPLETED Source: [facility] 5:29 PM CLINIC OTHER CAMPUS REPOSITORY O ID: [id number] Author: Shen Lorenzo Service: Nephrology Author Type: Physician Type: Progress Notes Filed: 01/18/2018 5:37 PM Note Text: Nephrology Progress Note Following for TERENCE. Pt is sedated and is on ventilator. Cannot obtain ROS. Current Inpatient Medications: Current Facility-Administered Medications Ordered in [facility]: Parenteral Nutrition - Adult INTRAVENOUS ONCE TPN (1800 START) Perla Dudley dexmedetomidine 400 mcg in NaCl 0.9% 100 mL (PRECEDEX) 0.2- 0.7 mcg/kg/hr INTRAVENOUS CONTINUOUS Paulo (Clinical Applications Manager) [place] Last Rate: 2.61 mL/hr at 01/18/18 [...] INTRAVENOUS 3 Times weekly with dialysis Ancelmovinaylitaidalmis Godoy 4,000 Units at 01/17/18 2226 amiodarone 360 mg in D5W 200 mL (NEXTERONE) 0.5-1 mg/min INTRAVENOUS CONTINUOUS Paulo (Clinical Applications Manager) Radu Last Rate: 16.67 mL/hr at 01/18/18 1557 0.5 mg/min at 01/18/18 1557 heparin 5,000 Units injection 5,000 Units SUBCUTANEOUS q 12 H Mervin (Res) Wally 5,000 Units at 01/18/18 1035 [...] H Elder Granda 15 mL at 01/18/18 0840 No current [...] do not hesitate to contact me at [phone] if there is any question or concern. Rosanna Talbert MD (Shen Lorenzo) VENOUS BLOOD GAS Collected: 01/18/2018 Status: F Source: [facility] 4:30 PM HEALTH SYSTEM REPOSITORY TYPE CODE [...] Venous 94.3 Performed By: #### VBG #### [place] [address] BASIC PANEL Collected: 01/18/2018 Status: F Source: [facility] 4:30 PM HEALTH SYSTEM REPOSITORY TYPE CODE [...] Gap 14 Performed By: #### P8 #### [facility] [address] [place] [address] HEMOGRAM Collected: 01/18/2018 Status: F Source: [facility] 4:30 PM HEALTH SYSTEM REPOSITORY TYPE CODE [...] Absolute 0.03 Performed By: #### CBC1 #### [facility] [address] [place] [id number] PROGRESS Observed: 01/18/2018 Status: COMPLETED Source: [place] 12:17 PM CLINIC OTHER CAMPUS REPOSITORY HNO ID: [id number] Author: Mervin Lo Service: General Surgery Author Type: Resident Type: Progress Notes Filed: 01/18/2018 12:27 PM Note Text: Attestation signed by Costa Miguel at 01/18/2018 12:27 PM I saw and evaluated the patient. I reviewed the resident's note and agree. Costa Miguel MD, FACS, [facility] EGS PROGRESS NOTES SERVICE DATE: 01/18/2018 Subjective [...] Therapy: Ventilator IANDO: Date 01/17/18 07 - 01/18/18 0659 01/18/18 07 - 01/19/18 0659 Shift 1708-6081 4240-7986 0147-0524 24 Hour Total 0989-4950 6459-5983 1566-8310 24 Hour Total I N T A [...] 0 0 0 0 0 Dialysis 2138 455 363 4055 1068 1068 Dialysis Output (Ultrafiltration) 2138 137 420 5302 1068 1068 Shift Total 3270 1841 1367 [...] Noted - Ruptured abdominal aortic aneurysm (AAA) ([facility]) 01/12/2018 - Obesity, Class I, BMI 30-34.9 01/16/2018 - Encephalopathy 01/13/2018 - DIC (disseminated intravascular coagulation) ([facility]) 01/12/2018 - Hemorrhagic shock ([facility]) 01/12/2018 - Acute respiratory failure ([facility]) 01/12/2018 - Cardiac arrest ([facility]) 01/12/2018 - Hypernatremia 01/12/2018 - Hypokalemia 01/12/2018 - Hypomagnesemia 01/12/2018 - Hypophosphatemia 01/12/2018 - Hyperchloremia 01/12/2018 - AAA (abdominal aortic aneurysm, ruptured) ([facility]) 01/12/2018 Overview Note: Added automatically from request for surgery [id number] 77 year old male with Ruptured AAA [...] questions or concerns Tue-Tue 6a-5p please page [phone]. After 5pm and on Weekends and Holidays, please page [phone] if in ICU or [phone] if on RNF. PHERESED PLATELETS Collected: 01/18/2018 Status: F Source: [facility] 11:30 AM HEALTH SYSTEM REPOSITORY TYPE CODE TESTS RESULT OUT OF REFERENCE UNITS RANGE LAB PPHR(LOINC) Pheresed Plts Done unit 1 LAB PPHII(LOINC ) Pheresed Plts Done unit 2 Performed By: #### PPHRS #### [place] [address] ANTI PLT FACTOR 4 Collected: 01/18/2018 Status: F Source: [facility] 11:30 AM HEALTH SYSTEM REPOSITORY TYPE [...] SEE BELOW Test Not Indicated Performing Laboratory: [facility] [address] [place] [address] Performed By: #### PLF4X #### [place] [id number] CASE MANAGEM Observed: 01/18/2018 Status: COMPLETED Source: [place] 10:43 AM CLINIC OTHER CAMPUS REPOSITORY HNO ID: [id number] Author: Krystal Garcia) MAGALY Jacobson Service: Care Management Author Type: [...] 18, 2018 TIME: 10:43 AM PAGER/CONTACT #: [phone] VENOUS BLOOD GAS Collected: 01/18/2018 Status: F Source: [facility] 10:00 AM HEALTH SYSTEM REPOSITORY TYPE CODE [...] Venous 78.9 Performed By: #### VBG #### [place] [address] HEMOGRAM Collected: 01/18/2018 Status: F Source: [facility] 10:00 AM HEALTH SYSTEM REPOSITORY TYPE CODE [...] 0.03 Absolute Performed By: #### CBC1 #### [facility] [address] [address] HEPATIC PANEL Collected: 01/18/2018 Status: F Source: [facility] 10:00 AM HEALTH SYSTEM REPOSITORY TYPE CODE [...] Bilirubin 3.27 Performed By: #### HEPAP #### [facility] [address] [place] [address] CHEST 1 VIEW Observed: 01/18/2018 Status: F Source: [facility] 5:37 AM HEALTH SYSTEM REPOSITORY Performed at [facility] APPROVED BY: Justino Rodriguez MD EXAMINATION: CHEST [...] effusions. PROGRESS Observed: 01/18/2018 Status: COMPLETED Source: [place] 5:02 AM [facility] OTHER [place] REPOSITORY HNO ID: [id number] Author: Dionicio Stevens Service: Vascular Surgery Author [...] kg/m? O2 Therapy: Ventilator IANDO: Date 01/17/18 0700 - 01/18/18 0659 01/18/18 0700 - 01/19/18 0659 Shift 0334-7766 5067-4380 7179-3110 24 Hour Total 7530-9414 2059-3402 4005-2458 24 Hour Total I N T A [...] Fr 01/17/18 1800) 32 28 60 Tubes 7237 200 7802 Drain/Tube Output (Drain/Tube 01/12/18 0100 Hemovac Midline Anterior Abdomen) 9109 274 7535 Drain/Tube Output (Drain/Tube 01/12/18 Fecal Management System) 0 0 0 Output (GI Feed/Drain 01/12/18 0100) 0 0 0 Dialysis 2138 421 642 2186 Dialysis Output (Ultrafiltration) 2138 325 736 4018 Shift Total 3270 7953 484 3907 Weight (kg) 104.2 104.2 104.2 104.2 104.2 [...] Noted - Ruptured abdominal aortic aneurysm (AAA) ([facility]) 01/12/2018 - Obesity, Class I, BMI 30-34.9 01/16/2018 - Encephalopathy 01/13/2018 - DIC (disseminated intravascular coagulation) ([facility]) 01/12/2018 - Hemorrhagic shock ([facility]) 01/12/2018 - Acute respiratory failure ([facility]) 01/12/2018 - Cardiac arrest ([facility]) 01/12/2018 - Hypernatremia 01/12/2018 - Hypokalemia 01/12/2018 - Hypomagnesemia 01/12/2018 - Hypophosphatemia 01/12/2018 - Hyperchloremia 01/12/2018 - AAA (abdominal aortic aneurysm, ruptured) ([facility]) 01/12/2018 Overview Note: Added automatically from request for surgery [id number] 77 year old male with Ruptured AAA [...] MAGNESIUM BLOOD Collected: 01/18/2018 Status: F Source: [facility] 5:00 AM HEALTH SYSTEM REPOSITORY TYPE CODE TESTS RESULT OUT OF REFERENCE UNITS RANGE LAB MAG(LOINC) 1.6-2.6 mg/dL Magnesium Blood 2.4 Performed By: #### MAG #### [place] [address] PHOSPHORUS BLOOD Collected: 01/18/2018 Status: F Source: [facility] 5:00 AM HEALTH SYSTEM REPOSITORY TYPE CODE TESTS RESULT OUT OF REFERENCE UNITS RANGE LAB PHOS(LOINC 2.5-4.9 mg/dL ) Phosphorus Blood 3.8 Performed By: #### PHOS #### [place] [address] HEMOGRAM/DIFF Collected: 01/18/2018 Status: F Source: [facility] 4:35 AM HEALTH SYSTEM REPOSITORY TYPE CODE [...] 0.55 LAB MONON(LOIN 0.30-0.82 thou/cmm C) Abs. Hunt 0.44 LAB EOSN(LOINC 0.04-0.54 thou/cmm ) Low Abs. Eosin 0.02 LAB BASON(LOIN 0.01-0.08 thou/cmm C) Abs. Baso 0.03 Result Comment: Smear scanned; tech agrees with automated differential Performed By: #### CBCD1 #### [facility] [address] [place], [place] [address] BASIC PANEL Collected: 01/18/2018 Status: F Source: [facility] 4:35 AM HEALTH SYSTEM REPOSITORY TYPE CODE [...] Gap 16 Performed By: #### P8 #### [place] [address] PROGRESS Observed: 01/18/2018 Status: COMPLETED Source: [place] 12:05 AM [facility] REPOSITORY HNO ID: [id number] Author: Joycelyn (Rn) MAGALY Lester Service: Dialysis [...] ALLIED HEALTH Observed: 01/17/2018 Status: COMPLETED Source: [place] 9:30 PM [facility] REPOSITORY HNO ID: [id number] Author: Gertrude (Crack Off Person) Chaplain José Service: Spiritual Care Author Type: Crack Off Person Type: Allied Health Filed: 01/18/2018 4:34 AM Note Text: SPIRITUALCARE Spiritual Care Visit- Brief Note Name: Naveen Akins Date: January 18, 2018 Notes: Visit with family in waiting room.Great support for patient. No coffee available to family. Machine on 4th floor has been broken for days. Notified nurse on 4800. Family thankful for continued visits and prayer. Crack Off Person Signature: Chaplain Rosendo To contact the Spiritual Care Department: Please call [phone] or Page the On-Call Crack Off Person at pager [phone] Thank you for the opportunity to be of service. This is an electronically created document. IF PRINTED, PLEASE DO NOT REMOVE FROM THE CHART OR MODIFY PRINTED COPY. PROGRESS Observed: 01/17/2018 Status: COMPLETED Source: [place] 8:59 PM CLINIC OTHER CAMPUS REPOSITORY HNO ID: [id number] Author: Ariadna (Rn) MAGALY Stewart Service: Abstract Author Type: Registered Nurse Type: Progress Notes Filed: 01/17/2018 9:01 PM Note Text: 2030 crrt clotted horticulturalist able to return blood/new set up/ arterial and venous line both sluggish but running ART TO ART and trevor to trevor/ flows remain the same/ hemosafe device x2 report to horticulturalist -- ariadna stewart rn BASIC PANEL Collected: 01/17/2018 Status: F Source: [facility] 4:50 PM HEALTH SYSTEM REPOSITORY TYPE CODE [...] Gap 15 Performed By: #### P8 #### [facility] [address] [address] PHERESED PLATELETS Collected: 01/17/2018 Status: F Source: [facility] 4:48 PM HEALTH SYSTEM REPOSITORY TYPE CODE TESTS RESULT OUT OF REFERENCE UNITS RANGE LAB PPHR(LOINC) Pheresed Plts Done unit 1 Performed By: #### PPHRS #### [facility] [address] [address] HEMOGRAM Collected: 01/17/2018 Status: F Source: [facility] 4:39 PM HEALTH SYSTEM REPOSITORY TYPE CODE [...] Absolute 0.03 Performed By: #### CBC1 #### [facility] [address] [address] BLOOD GAS ARTERIAL Collected: 01/17/2018 Status: F Source: [facility] 4:30 PM HEALTH SYSTEM REPOSITORY TYPE CODE [...] Excess -3.5 Performed By: #### ABG #### [facility] [address] [address] NUTRITION Observed: 01/17/2018 Status: COMPLETED Source: [place] 3:17 PM CLINIC OTHER CAMPUS REPOSITORY HNO ID: [id number] Author: Jaimie Wells) KRISHAN Perez Service: Nutrition Therapy Author Type: Registered Dietitian [...] old male transferred in critical condition from [facility] with diagnosed ruptured AAA. Patient was life-flighted to [facility]. Intubated at outside facility. Per EMS, [...] found for: PCGLUCOSE Jaimie Perez RD Pager: [phone] Increments: 3 PROGRESS Observed: 01/17/2018 Status: COMPLETED Source: [place] 2:34 PM [facility] REPOSITORY HNO ID: [id number] Author: Wai (Irene) Swapna Service: Cardiovascular Medicine Author Type: Nurse Practitioner [...] 2018 TIME: 2:35 PM PAGER/CONTACT #: [phone] ETX#[id number] PROGRESS Observed: 01/17/2018 Status: COMPLETED Source: [place] 1:48 PM [facility] REPOSITORY HNO ID: [id number] Author: Costa Miguel Service: Gastroenterology Surgery Author Type: Physician Type: Progress Notes Filed: 01/17/2018 1:50 PM Note Text: Discussed patient with Dr. Paniagua. Tentative plan is takeback to OR zm 01/19 to begin closure attempt and vac change. Costa Miguel MD, FACS, FASMBS TYPE AND SCREEN Collected: 01/17/2018 Status: F Source: [facility] 11:30 AM HEALTH SYSTEM REPOSITORY TYPE CODE TESTS RESULT OUT OF REFERENCE UNITS RANGE LAB ABO(LOINC) O ABO Group LAB LABOR TRAINER(LOINC ) RH Type Positive LAB ABSCR(LOIN C) Antibody NEGATIVE Screen LAB BBCMT(LOIN C) Comment See Below Result Comment: Screen &/or Xmatch expires in 3 days at 12 midnight. Redraw patient at that time. Performed By: #### T&S #### [facility] [address] [place] [id number] RBC PRODUCTS Collected: 01/17/2018 Status: F Source: [facility] 11:30 AM HEALTH SYSTEM REPOSITORY TYPE CODE TESTS RESULT OUT OF REFERENCE UNITS RANGE LAB UNIT1(LOINC ) Xmatch Unit 1 see below Result Comment: Compatible LAB UNIT2(LOINC) Xmatch Unit 2 see below Result Comment: Compatible Performed By: #### RBCPS #### [place] [address] CASE MANAGEM Observed: 01/17/2018 Status: COMPLETED Source: [place] 11:20 AM [facility] REPOSITORY HNO ID: [id number] Author: Steve (Rn) MAGALY Rivera Service: Care Management Author Type: Registered Nurse Type: Care Mgt Progress Note Filed: 01/17/2018 11:21 AM Note Text: Epic reviewed, pt went to OR yesterday for ex-lap, abdominal washout and wound vac change, plan is to go back to OR today. Remains on ventilator. ALLIED HEALTH Observed: 01/17/2018 Status: COMPLETED Source: [place] 11:08 AM [facility] REPOSITORY HNO ID: [id number] Author: Chaplain Serna (Chaplain) Service: Spiritual Care Author Type: Crack Off Person Type: Allied Health Filed: 01/17/2018 11:10 AM Note Text: SPIRITUALCARE Spiritual Care Visit- Brief Note Name: Naveen Akins Date: January 17, 2018 Notes: Checked in w/pt's family in 3d floor WR--will continue to follow as appropriate. Crack Off Person Signature: Chaplain Daphne To contact the Spiritual Care Department: Please call [phone] or Page the On-Call Crack Off Person at pager [phone] Thank you for the opportunity to be of service. This is an electronically created document. IF PRINTED, PLEASE DO NOT REMOVE FROM THE CHART OR MODIFY PRINTED COPY. PROGRESS Observed: 01/17/2018 Status: COMPLETED Source: [place] 11:03 AM [facility] OTHER CAMPUS REPOSITORY O ID: [id number] Author: Shen Lorenzo Service: Nephrology Author Type: [...] mL (NEXTERONE) 0.5-1 mg/min INTRAVENOUS CONTINUOUS Paulo (Clinical Applications Manager) Radu Last Rate: 16.67 mL/hr at 01/17/18 0730 0.5 mg/min at 01/17/18 0730 heparin 5,000 Units injection 5,000 Units SUBCUTANEOUS q 12 H Brennonopher (Res) Wally 5,000 Units at 01/17/18 1017 [...] (LEVOPHED) 0.6-40 mcg/min INTRAVENOUS CONTINUOUS Chente R Vivici Last Rate: 56.25 mL/hr at 01/17/18 1018 60 mcg/min at 01/17/18 1018 Chlorhexidine Gluconate 0.12 % 15 mL (PERIDEX) 15 mL ORAL q 12 H Elder Granda 15 mL at 01/17/18 1015 No current Epic-ordered outpatient prescriptions on file. Vitals: BP (!) [...] even. I will discuss fluid management with rfid developer. ? 2. Shock. Likely hemorrhagic shock-massive blood [...] do not hesitate to contact me at [phone] if there is any question or concern. Rosanna Talbert MD (Shen Lorenzo) BLOOD GAS ARTERIAL Collected: 01/17/2018 Status: F Source: [facility] 10:30 AM HEALTH SYSTEM REPOSITORY TYPE CODE [...] Not Given Performed By: #### ABG #### [facility] [address] [address] HEMOGRAM Collected: 01/17/2018 Status: F Source: [facility] 10:30 AM HEALTH SYSTEM REPOSITORY TYPE CODE [...] Absolute 0.02 Performed By: #### CBC1 #### [place] [address] PROGRESS Observed: 01/17/2018 Status: COMPLETED Source: [place] 9:52 AM [facility] OTHER CAMPUS REPOSITORY [facility] ID: [id number] Author: Herman Sutton Service: Critical Care Author [...] Neurologic: Sedated Respiratory/Nursing Documentation: O2 Therapy: Ventilator (08/14/18 0920) Invasive Ventilator Mode: Pressure Regulated Volume Control [...] AM PROGRESS Observed: 01/17/2018 Status: COMPLETED Source: [place] 6:31 AM CLINIC OTHER CAMPUS REPOSITORY HNO ID: [id number] Author: Dionicio Stevens Service: Vascular Surgery Author Type: Resident Type: Progress Notes Filed: 01/17/2018 10:27 AM Note Text: Vascular Surgery Progress Note SERVICE DATE: 01/17/2018 Vascular AND Thoracic Surgery Service Pager: For questions or concerns Mon-Fri 6a-5p please page [phone]. After 5pm and on Weekends and Holidays, please page [phone] if in ICU or [phone] if on RNF. Subjective SUBJECTIVE: NAEON per nurse, MAK on Sedation holiday, not following commands Diet: [...] 0659 01/17/18 07 - 01/18/18 0659 Shift 2497-9976 0519-9561 0000-6840 24 Hour Total 3364-7530 9102-4117 2787-5815 24 Hour Total I N T A [...] 16 Fr) 116 5 34 155 Tubes 4759 490 6389 2955 Drain/Tube Output (Drain/Tube 01/12/18 0100 Hemovac Midline Anterior Abdomen) 850 633 239 4428 Drain/Tube Output (Drain/Tube 01/12/18 Fecal Management System) 125 0 50 175 Output (GI Feed/Drain 01/12/18 0100) 355 100 100 555 Dialysis 564 1073 2139 3776 Dialysis Output (Ultrafiltration) 564 1073 2139 3776 Shift Total 2009 1703 3173 6813 Weight (kg) 104.2 104.2 104.2 104.2 104.2 [...] Noted - Ruptured abdominal aortic aneurysm (AAA) ([facility]) 01/12/2018 - Obesity, Class I, BMI 30-34.9 01/16/2018 - Encephalopathy 01/13/2018 - DIC (disseminated intravascular coagulation) ([facility]) 01/12/2018 - Hemorrhagic shock ([facility]) 01/12/2018 - Acute respiratory failure ([facility]) 01/12/2018 - Cardiac arrest ([facility]) 01/12/2018 - Hypernatremia 01/12/2018 - Hypokalemia 01/12/2018 - Hypomagnesemia 01/12/2018 - Hypophosphatemia 01/12/2018 - Hyperchloremia 01/12/2018 - AAA (abdominal aortic aneurysm, ruptured) ([facility]) 01/12/2018 Overview Note: Added automatically from request for surgery [id number] 77 year old male with Ruptured AAA [...] 1 VIEW Observed: 01/17/2018 Status: F Source: [facility] 5:41 AM HEALTH SYSTEM REPOSITORY Performed at [facility] APPROVED BY: NEMO TAN MD EXAMINATION: CHEST [...] GAS ARTERIAL Collected: 01/17/2018 Status: F Source: [facility] 4:35 AM HEALTH SYSTEM REPOSITORY TYPE CODE [...] Excess -2.4 Performed By: #### ABG #### [place] [address] IONIZED CALCIUM Collected: 01/17/2018 Status: F Source: [place] [address]:[facility] REPOSITORY TYPE CODE TESTS RESULT OUT OF REFERENCE UNITS RANGE LAB CAION(LOINC 4.43-4.93 mg/dL ) Low Ionized 3.98 Calcium LAB PHCAI(LOINC 7.320-7.420 ) pH 7.335 LAB CAPH(LOINC) 4.36-4.73 mg/dL Low Ionized 3.85 Ca,PH7.4 Performed By: #### IONCA #### [place] [address] MAGNESIUM BLOOD Collected: 01/17/2018 Status: F Source: [place] [address]:[facility] REPOSITORY TYPE CODE TESTS RESULT OUT OF REFERENCE UNITS RANGE LAB MAG(LOINC) 1.6-2.6 mg/dL Magnesium Blood 2.3 Performed By: #### MAG #### [place] [address] PHOSPHORUS BLOOD Collected: 01/17/2018 Status: F Source: [facility] 4:35 AM HEALTH SYSTEM REPOSITORY TYPE CODE TESTS RESULT OUT OF REFERENCE UNITS RANGE LAB PHOS(LOINC 2.5-4.9 mg/dL ) Phosphorus Blood 3.3 Performed By: #### PHOS #### [facility] [address] [place], [place] [address] HEMOGRAM/DIFF Collected: 01/17/2018 Status: F Source: [facility] 4:35 AM HEALTH SYSTEM REPOSITORY TYPE CODE [...] Lymph 0.56 LAB MONON(LOINC) 0.30-0.82 thou/cmm Abs. Hunt 0.37 LAB EOSN(LOINC) 0.04-0.54 thou/cmm Abs. High Eosin 0.99 LAB BASON(LOINC) 0.01-0.08 thou/cmm Abs. Baso 0.02 Performed By: #### CBCD1 #### [facility] [address] [place], [place] [address] BLOOD GAS ARTERIAL Collected: 01/16/2018 Status: F Source: [address] SYSTEM REPOSITORY TYPE CODE TESTS RESULT [...] Not Given Performed By: #### ABG #### [facility] [address] [place], [place] [address] HEMOGRAM Collected: 01/16/2018 Status: F Source: [address] [facility] SYSTEM REPOSITORY TYPE CODE TESTS [...] MPV 10.6 Performed By: #### CBC1 #### [facility] [address] [place], [place] [address] BASIC PANEL Collected: 01/16/2018 Status: F Source: [facility] 7:55 PM HEALTH SYSTEM REPOSITORY TYPE CODE [...] Blood 106 Performed By: #### P8 #### [address] [address] PROGRESS Observed: 01/16/2018 Status: COMPLETED Source: [place] 7:34 PM CLINIC OTHER CAMPUS REPOSITORY HNO ID: [id number] Author: Ariadna (Rn) MAGALY Stewart Service: Abstract Author Type: Registered Nurse Type: Progress Notes Filed: 01/16/2018 7:36 PM Note Text: crrt taken off per horticulturalist at around 1645 for OR trip/ crrt resumed at 1930/ on 4 k bfr 200 flows at 700 / horticulturalist to try to remove some fluid off per hour depending on bp/ drsg changed to LIJ dialysis catheter/ hemosafe device x2 - report to horticulturalist /ariadna stewart rn ANES POST Observed: 01/16/2018 Status: COMPLETED Source: [place] 7:07 PM [facility] REPOSITORY HNO ID: [id number] Author: Derian Barlow Service: Anesthesiology Author Type: Physician Type: Anesthesia PostOp Filed: 01/16/2018 7:08 PM Note Text: POST ANESTHESIA EVALUATION NOTE SERVICE DATE: 01/16/2018 SERVICE TIME: 1907 : 1940 Vitals: 01/16/18 0000 01/16/18 0500 01/16/18 0710 01/16/18 1110 Temp: 36.5 ?C (97.7 ?F) 36.1 ?C (97 ?F) 36 ?C (96.8 ?F) (!) 35.9 ?C (96.7 ?F) 01/16/18 17001/16/18 18101/16/18 18301/16/18 184 Arterial BP 1: 110/47 125/52 145/59 112/48 BP: 01/16/18 17001/16/18 1815 01/16/18 1830 01/16/18 184 Pulse: 84 86 91 88 01/16/18 1705 01/16/18 1815 01/16/18 1830 01/16/18 1845 Resp: 17 16 15 16 01/16/18 17001/16/18 18101/16/18 1830 01/16/18 1845 SpO2: 91% 95% 90% 96% Validated [...] ANES PREOP Observed: 01/16/2018 Status: COMPLETED Source: [place] 7:06 PM [facility] REPOSITORY HNO ID: [id number] Author: Derian Barlow Service: Anesthesiology Author Type: Physician Type: Anesthesia PreOp Filed: 01/16/2018 7:07 PM Note Text: ANESTHESIOLOGY DAY OF SURGERY NOTE SERVICE DATE: 01/16/2018 SERVICE TIME: 1629 : 1940 Procedure(s) (LRB): EXPLORATORY LAPAROTOMY, WASHOUT, ABTHERA VAC CHANGE (N/A) Surgeon(s): Venkat Brunner (Res) Emerita Estimated body mass index is 34.93 kg/m? [...] - Adult INTRAVENOUS ONCE TPN (1800 START) Prela Dudley Last Rate: 100 mL/hr at 01/16/18 185 [MAR Hold due to Transfer] heparin 1,000 unit/mL 4,000 Units injection 4,000 Units INTRAVENOUS 3 Times weekly with dialysis Troy Godoy 1.4 mL at 01/16/18 1739 [MAR Hold due to Transfer] NaCl 0.9% iv infusion 100 mL/hr INTRAVENOUS CONTINUOUS Dionicio (Res) Stevens Last Rate: 100 mL/hr at 01/16/18 184 100 mL/hr at 01/16/18 184 [MAR Hold due to Transfer] amiodarone 360 mg in D5W 200 mL (NEXTERONE) 0.5-1 mg/min INTRAVENOUS CONTINUOUS Paulo (Clinical Applications Manager) Radu Last Rate: 16.67 mL/hr at 01/16/18 184 0.5 mg/min at 01/16/18 184 [MAR Hold [...] Whittaker Last Rate: 200 mL/hr at 01/16/18 1841 3 g at 01/16/18 184 [MAR Hold [...] (Res) Cardella Last Rate: 7.5 mL/hr at 01/16/184 150 mcg/hr at 01/16/181843 [MAR Hold due to Transfer] pantoprazole 40 mg injection (PROTONIX) 40 mg INTRAVENOUS DAILY (6 AM) Emilie (Res) Cardella 40 mg at 01/16/18 0520 [MAR Hold due to Transfer] NORepinephrine 16 mg in D5W 250 mL (LEVOPHED) 0.6-40 mcg/min INTRAVENOUS CONTINUOUS Chente R Vivici Last Rate: 20.63 mL/hr at 01/16/18 1843 [...] January 16, 2018 TIME: 7:06 PM CSN: [id number] BRIEF OP NOT Observed: 01/16/2018 Status: COMPLETED Source: [place] 6:12 PM [facility] OTHER CAMPUS REPOSITORY [facility] ID: [id number] Author: Kannan Felder Service: General Surgery Author Type: Resident Type: Brief Op Note Filed: 01/16/2018 6:13 PM Note Text: BRIEF OPERATIVE / PROCEDURE NOTE LOG ID: [id number] SURGERY/PROCEDURE DATE: 01/16/2018 INCISION/PROCEDURE START TIME: 5:30 PM INCISION CLOSE/PROCEDURE END TIME: 5:57 PM SURGEON(S)/PROCEDURALIST(S) AND REGISTERED ROUTE ASSOCIATE(S): Surgeon(s) and Role: * Venkat Paniagua - Primary * Kannan Felder - Resident - Assisting Digital Technician: Dorcas Schuler SA SURGERY/PROCEDURE(S): exploratory laparotomy. Change [...] NURSING PROG Observed: 01/16/2018 Status: COMPLETED Source: [place] 5:43 PM CLINIC OTHER CAMPUS REPOSITORY HNO ID: [id number] Author: Yessica TylerRn) MAGALY Guy Service: Nursing Author Type: Registered Nurse Type: Nursing Progress Note Filed: 01/16/2018 5:44 PM Note Text: Whenever this patient comes back to the OR to be closed, an xray needs to be done prior to. PER DR. PANIAGUA PHERESED PLATELETS Collected: 01/16/2018 Status: F Source: [facility] 5:11 PM HEALTH SYSTEM REPOSITORY TYPE CODE TESTS RESULT OUT OF REFERENCE UNITS RANGE LAB PPHR(LOINC) Pheresed Plts Done unit 1 Performed By: #### PPHRS #### [place] [address] 12 LEAD ELECTROCARDIOGRAM Observed: 01/16/2018 Status: F Source: [place] 3:03 PM [facility] REPOSITORY [facility] Cardiovascular Services [address] [place] [address] 12 Lead EKG 01/11/18 2330 MR#: [id number] Acct: [id number] Name: NAVEEN AKINS Rep #: [id number] : 1940 77 From: Jax Finnegan MD [...] ECG Confirmed by JAX FINNEGAN MD ([id number]), senior technical editor KATHY SILVA ([id number]) on 01/16/2018 3:03:17 PM Referred By: TA Confirmed By:JAX FINNEGAN MD 01/16/18 1503 Date Jax Finnegan MD CC: Kathy Dill; Jack Olmedo MD Signed CASE MANAGEM Observed: 01/16/2018 Status: COMPLETED Source: [place] 2:38 PM CLINIC OTHER CAMPUS REPOSITORY HNO ID: [id number] Author: Viktoriya Garcia) MAGALY Alvarado Service: Care [...] 16, 2018 TIME: 2:38 PM PAGER/CONTACT #: [phone] NUTRITION Observed: 01/16/2018 Status: COMPLETED Source: [place] 1:44 PM CLINIC OTHER CAMPUS REPOSITORY HNO ID: [id number] Author: Jaimie Perez RD Service: Nutrition Therapy [...] old male transferred in critical condition from [facility] with diagnosed ruptured AAA. Patient was life-flighted to [facility]. Intubated at outside facility. Per EMS, [...] admit X 4 days after tx from [facility]. Present Diet Order: NPO Enteral Access: NG Nutritional Intake Prior to Admission: Intake hx unknown;tx from [facility] and has not been on support yet [...] : 104.2 kg (229 lb 11.5 oz) [place] Body Weight: 96kg Resting Metabolic Rate: 1746 Estimated kilocalorie needs: 5729-7112 kilocalories determined by 20-25 kcal/kg Estimated protein needs: 144 grams determined by 1.5gms/kg [place] weight Estimated fluid needs: per renal NUTRITION [...] Intake/Output 01/12/18 0700 - 01/13/18 0659 01/13/18 0700 - 01/14/18 0659 01/14/18 0700 - 01/15/18 0659 01/15/18 0700 - 01/16/18 0659 01/16/18 0700 - 01/17/18 0659 Intake (ml) 45157 8893.5 9167.4 8388 1518.2 Output (ml) 6865 5529 9661 68724 1791 Net (ml) 4742 3364.5 -493.6 -1754 [...] January 16, 2018 TIME: 1:44 PM PAGER: [phone] BLOOD GAS ARTERIAL Collected: 01/16/2018 Status: F Source: [facility] 11:45 AM HEALTH SYSTEM REPOSITORY TYPE CODE TESTS [...] Excess -2.6 Performed By: #### ABG #### [facility] [address] [place] [address] HEMOGRAM Collected: 01/16/2018 Status: F Source: [facility] 11:45 HEALTH SYSTEM REPOSITORY TYPE CODE TESTS [...] MPV 11.0 Performed By: #### CBC1 #### [facility] [address] [place] [address] PROGRESS Observed: 01/16/2018 Status: COMPLETED Source: [place] 10:59 AM CLINIC OTHER CAMPUS REPOSITORY HNO ID: [id number] Author: Troy Godoy Service: Nephrology Author Type: [...] ? PROGRESS Observed: 01/16/2018 Status: COMPLETED Source: [place] 10:56 AM [facility] REPOSITORY [facility] ID: [id number] Author: Hermelinda Ferrell Service: General Surgery Author Type: Resident Type: Progress Notes Filed: 01/16/2018 11:02 AM Note Text: Attestation signed by Costa Miguel at 01/16/2018 11:13 AM I saw and evaluated the patient. I reviewed the resident's note and agree. Costa Miguel MD, [facility], [facility] PROGRESS NOTE EGS Surgery Progress Note Emergency General Surgery Service Pager: For questions or concerns Mon-Tue 6a-5p please page [phone]. After 5pm and on Weekends and Holidays, please page [phone] if in ICU or [phone] if on RNF. SERVICE DATE: 01/16/2018 SERVICE [...] ?F), Max:37 ?C (98.6 ?F) Date 01/15/18 07 - 01/16/18 0659 01/16/18 07 - 01/17/18 0659 Shift 7649-9550 1742-9703 7423-2121 24 Hour Total 2716-3897 8313-2349 0546-9978 24 Hour Total I N T A [...] 2 8 81 91 23 23 Tubes 578 731 1169 2675 750 750 Drain/Tube Output (Drain/Tube 01/12/18 0100 Hemovac Midline Anterior Abdomen) 033 716 2814 2575 450 450 Drain/Tube Output (Drain/Tube 01/12/18 Fecal Management System) 0 0 0 0 50 50 Output (GI Feed/Drain 01/12/18 0100) 100 0 0 100 250 250 Dialysis 2082 2423 2868 7376 104 104 Dialysis Output (Ultrafiltration) 2082 2423 2868 7376 104 104 Shift Total 2864 3277 4000 40705 877 877 Weight (kg) 104.7 104.7 104.2 [...] Noted - Ruptured abdominal aortic aneurysm (AAA) ([facility]) 01/12/2018 - Encephalopathy 01/13/2018 - DIC (disseminated intravascular coagulation) ([facility]) 01/12/2018 - Hemorrhagic shock ([facility]) 01/12/2018 - Acute respiratory failure ([facility]) 01/12/2018 - Cardiac arrest ([facility]) 01/12/2018 - Hypernatremia 01/12/2018 - Hypokalemia 01/12/2018 - Hypomagnesemia 01/12/2018 - Hypophosphatemia 01/12/2018 - Hyperchloremia 01/12/2018 - AAA (abdominal aortic aneurysm, ruptured) ([facility]) 01/12/2018 Overview Note: Added automatically from request for surgery [id number] Assessment/Plan 77 yo M with Ruptured AAA [...] questions or concerns Mon-Fri 6a-5p please page [phone]. After 5pm and on Weekends and Holidays, please page [phone] if in ICU or [phone] if on RNF. Hermelinda Ferrell MD General Surgery, PGY-2 January 16, 2018 10:57 AM PROGRESS Observed: 01/16/2018 Status: COMPLETED Source: [place] 10:24 AM CLINIC OTHER CAMPUS REPOSITORY O ID: [id number] Author: Herman Sutton Service: Critical Care Author [...] SIGNATURE: Herman Sutton MD PATIENT NAME: Naveen Aknis DATE: January 16, 2018 TIME: 10:24 AM 32 CHEST 1 VIEW Observed: 01/16/2018 Status: F Source: [facility] 6:41 AM HEALTH SYSTEM REPOSITORY Performed at [facility] APPROVED BY: Teo Gutiérrez MD EXAMINATION: CHEST [...] loss. PROGRESS Observed: 01/16/2018 Status: COMPLETED Source: [place] 6:12 AM [facility] REPOSITORY O ID: [id number] Author: Dionicio Stevens Service: Vascular Surgery Author [...] questions or concerns Mon-Fri 6a-5p please page [phone]. After 5pm and on Weekends and Holidays, please page [phone] if in ICU or [phone] if on RNF. Subjective SUBJECTIVE: Weaning down [...] O2 Therapy: Ventilator IANDO: Date 01/15/18699 - 01/16/1865801/16/18699 - 01/17/18 0659 Shift 7761-5322 4677-6073 0861-5498 24 Hour Total 4582-9059 6375-8239 4666-1383 24 Hour Total I N T A [...] 16 Fr) 2 8 81 91 Tubes 001 066 0808 2675 Drain/Tube Output (Drain/Tube 01/12/18 0100 Hemovac Midline Anterior Abdomen) 184 546 8516 2575 Drain/Tube Output (Drain/Tube 01/12/18 Fecal Management [...] Noted - Ruptured abdominal aortic aneurysm (AAA) ([facility]) 01/12/2018 - Encephalopathy 01/13/2018 - DIC (disseminated intravascular coagulation) ([facility]) 01/12/2018 - Hemorrhagic shock (HCC) 01/12/2018 - Acute respiratory failure (HCC) 01/12/2018 - Cardiac arrest (HCC) 01/12/2018 - Hypernatremia 01/12/2018 - Hypokalemia 01/12/2018 - Hypomagnesemia 01/12/2018 - Hypophosphatemia 01/12/2018 - Hyperchloremia 01/12/2018 - AAA (abdominal aortic aneurysm, ruptured) (HCC) 01/12/2018 Overview Note: Added automatically from request for surgery [id number] 77 year old male with Ruptured AAA [...] RNF. HEMOGRAM/DIFF Collected: 01/16/2018 Status: F Source: [facility] 4:30 AM HEALTH SYSTEM REPOSITORY TYPE CODE [...] 0.69 LAB MONON(LOIN 0.30-0.82 thou/cmm C) Abs. Hunt 0.40 LAB EOSN(LOINC 0.04-0.54 thou/cmm ) Abs. High Eosin 1.10 LAB BASON(LOIN 0.01-0.08 thou/cmm C) Abs. Baso 0.02 Result Comment: Smear scanned; tech agrees with automated differential Performed By: #### CBCD1 #### [place] [address] MAGNESIUM BLOOD Collected: 01/16/2018 Status: F Source: [facility] 4:30 AM HEALTH SYSTEM REPOSITORY TYPE CODE TESTS RESULT OUT OF REFERENCE UNITS RANGE LAB MAG(LOINC) 1.6-2.6 mg/dL Magnesium Blood 2.2 Performed By: #### MAG #### [facility] [address] [address] PHOSPHORUS BLOOD Collected: 01/16/2018 Status: F Source: [facility] 4:30 AM HEALTH SYSTEM REPOSITORY TYPE CODE TESTS RESULT OUT OF REFERENCE UNITS RANGE LAB PHOS(LOINC 2.5-4.9 mg/dL ) Phosphorus Blood 2.5 Performed By: #### PHOS #### [facility] [address] [place] [address] BASIC PANEL Collected: 01/16/2018 Status: F Source: [facility] 4:30 AM HEALTH SYSTEM REPOSITORY TYPE CODE [...] Blood 88 Performed By: #### P8 #### [facility] [address] [address] HEMOGRAM Collected: 01/15/2018 Status: F Source: [facility] 10:19 PM HEALTH SYSTEM REPOSITORY TYPE CODE [...] MPV 11.5 Performed By: #### CBC1 #### [facility] [address] [place], [place] [address] BLOOD GAS ARTERIAL Collected: 01/15/2018 Status: F Source: [facility] 10:05 PM HEALTH SYSTEM REPOSITORY TYPE CODE [...] Excess -3.6 Performed By: #### ABG #### [address] [address] PROGRESS Observed: 01/15/2018 Status: COMPLETED Source: [place] 7:28 PM CLINIC OTHER CAMPUS REPOSITORY O ID: [id number] Author: Chente Whittaker Service: Critical Care Author [...] per 24 hour Intake 8140.4 ml Output 89285 ml Net -2018.6 ml DATA: I personally [...] PM PROGRESS Observed: 01/15/2018 Status: COMPLETED Source: [place] 3:54 PM CLINIC OTHER CAMPUS REPOSITORY O ID: [id number] Author: Dionicio (Edenilson) Rodney Service: Vascular Surgery [...] follow closely Dionicio Stevens MD PGY-4 Pager: [phone] 01/15/2018, 4:05 PM PROGRESS Observed: 01/15/2018 Status: COMPLETED Source: [place] 3:44 PM CLINIC OTHER CAMPUS REPOSITORY HNO ID: [id number] Author: Renate Handy Service: Nephrology Author Type: [...] - - - 120 17 99 % 08/10/18 2100 - - - (!) 165 17 [...] - - - 111 19 97 % 08/10/18 1234 - - - 113 - 94 [...] do not hesitate to contact me at [phone] with any concerns SIGNATURE: Renate Handy DO PATIENT NAME: Naveen Akins DATE: January 14, 2018 TIME: 10:08 AM PAGER/CONTACT #: BLOOD GAS ARTERIAL Collected: 01/15/2018 Status: F Source: [facility] 3:30 PM HEALTH SYSTEM REPOSITORY TYPE CODE [...] Excess -3.0 Performed By: #### ABG #### [facility] [address] [address] HEMOGRAM Collected: 01/15/2018 Status: F Source: [facility] 3:30 PM HEALTH SYSTEM REPOSITORY TYPE CODE [...] MPV 10.9 Performed By: #### CBC1 #### [place] [address] BASIC PANEL Collected: 01/15/2018 Status: F Source: [facility] 3:30 PM HEALTH SYSTEM REPOSITORY TYPE CODE [...] Gap 12 Performed By: #### P8 #### [address] [address] PROGRESS Observed: 01/15/2018 Status: COMPLETED Source: [place] 3:29 PM CLINIC OTHER CAMPUS REPOSITORY HNO ID: [id number] Author: Paulo Lovelace (Cns) Service: Critical Care Author Type: Nurse Specialist Type: Progress Notes Filed: 01/15/2018 3:33 PM Note Text: Abdomen appears more distended than approx 11AM this morning. Significant scrotal edema observed as well. Check stat CBCD. Ana Granda and Rodney notified. PHERESED PLATELETS Collected: 01/15/2018 Status: F Source: [facility] 2:49 PM HEALTH SYSTEM REPOSITORY TYPE CODE TESTS RESULT OUT OF REFERENCE UNITS RANGE LAB PPHR(LOINC) Pheresed Plts Done unit 1 Performed By: #### PPHRS #### [facility] [address] [address] NURSING PROG Observed: 01/15/2018 Status: COMPLETED Source: [place] 2:25 PM CLINIC OTHER CAMPUS REPOSITORY HNO ID: [id number] Author: Araceli TylerRn) MAGALY Elam Service: Dialysis Author Type: Registered Nurse Type: Nursing Progress Note Filed: 01/15/2018 3:19 PM Note Text: CRRT CHANGED OUT DUE TO INCREASING PRESSURES. BLOOD RETUNED TO PT AND CRRT RESTARTED AT 3PM. M100 ALL PUMPS AT 700 ALL BAGS 4K/2.5CA. LIJ WITH BFR AT 200. REPORT TO WAI GARDNER NURSING PROG Observed: 01/15/2018 Status: COMPLETED Source: [place] 1:21 PM [facility] OTHER [place] REPOSITORY HNO ID: [id number] Author: Iza TylerRn) MAGALY Arguelles Service: Nursing Author Type: Registered Nurse Type: Nursing Progress Note Filed: 01/15/2018 1:24 PM Note Text: Demi Cee updated on patient's need for increased Fi02; page out to Dr. Stevens also PROGRESS Observed: 01/15/2018 Status: COMPLETED Source: [place] 11:47 AM [facility] REPOSITORY HNO ID: [id number] Author: Dionicio Stevens Service: Vascular Surgery Author Type: Resident Type: Progress Notes Filed: 01/15/2018 11:49 AM Note Text: Vascular Surgery CVP down to 4 Increased Levo requirments Plan: - 1L Bolus LR - 25g 5% Albumin - CVVHD running positive now - transfuse a 5-pk platelets - NaPhos IV 45mEq - Calc Gluc IV 4g - recheck labs Dionicio Stevens MD PGY-4 Pager: [phone] 01/15/2018, 11:48 AM NURSING PROG Observed: 01/15/2018 Status: COMPLETED Source: [place] 11:43 AM [facility] OTHER CAMPUS REPOSITORY HNO ID: [id number] Author: Iza (Rn) MAGALY Arguelles Service: Nursing Author Type: Registered Nurse Type: Nursing Progress Note Filed: 01/15/2018 11:44 AM Note Text: Dr. Stevens updated on patient's libiale blood pressure and the need to increase levophed drip. New orders received, will continue to monitor CONSULT PROG Observed: 01/15/2018 Status: COMPLETED Source: [place] 10:38 AM CLINIC OTHER CAMPUS REPOSITORY O ID: [id number] Author: Gilbert Tucker Service: Cardiovascular Medicine Author [...] pt with AAA rupture, s/p arrest on FORENSIC CHEMIST, pressors; Echo EF 55%-SVT related to meds, mileau -On IV Amio-no recurrence thus far -now sinus tach -no recommendations ? SIGNATURE: Gilbert Tucker MD PATIENT NAME: Naveen Akins DATE: January 15, 2018 TIME: 10:39 AM PAGER/CONTACT #: [phone] BLOOD GAS ARTERIAL Collected: 01/15/2018 Status: F Source: [facility] 10:00 AM HEALTH SYSTEM REPOSITORY TYPE CODE [...] Excess -3.8 Performed By: #### ABG #### [facility] [address] [place], [place] [address] LACTIC ACID Collected: 01/15/2018 Status: F Source: [facility] 10:00 HEALTH SYSTEM REPOSITORY TYPE CODE TESTS RESULT OUT OF REFERENCE UNITS RANGE LAB LAC(LOINC) 0.4-2.0 mEq/L Lactic Acid 1.5 Performed By: #### LAC #### [address] [place], [place] [address] BASIC PANEL Collected: 01/15/2018 Status: F Source: [facility] 10:00 AM HEALTH SYSTEM REPOSITORY TYPE CODE [...] Gap 15 Performed By: #### P8 #### [place] [address] PHOSPHORUS BLOOD Collected: 01/15/2018 Status: F Source: [facility] 10:00 HEALTH SYSTEM REPOSITORY TYPE CODE TESTS RESULT OUT OF REFERENCE UNITS RANGE LAB PHOS(LOINC 2.5-4.9 mg/dL ) Phosphorus Blood 3.4 Performed By: #### PHOS #### [place] [address] HEMOGRAM Collected: 01/15/2018 Status: F Source: [facility] 10:00 HEALTH SYSTEM REPOSITORY TYPE CODE TESTS [...] 0.02 Absolute Performed By: #### CBC1 #### [place] [address] FIBRINOGEN Collected: 01/15/2018 Status: F Source: [facility] 10:00 AM HEALTH SYSTEM REPOSITORY TYPE CODE TESTS RESULT OUT OF REFERENCE UNITS RANGE LAB FIB(LOINC) 180-430 mg/dl High Fibrinogen 498 Performed By: #### FIB #### [place] [address] PROTIME Collected: 01/15/2018 Status: F Source: [facility] 10:00 AM HEALTH SYSTEM REPOSITORY TYPE CODE TESTS RESULT OUT OF REFERENCE UNITS RANGE LAB PTI(LOINC) 9.3-11.9 sec Prothrombin High Time 12.7 LAB INR(LOINC) INR 1.22 Result Comment: Standard Therapy 2.0-3.0 High Dose 2.5-3.5 Performed By: #### PT #### [place] [address] ACTIVATED PTT Collected: 01/15/2018 Status: F Source: [facility] 10:00 AM HEALTH SYSTEM REPOSITORY TYPE CODE TESTS RESULT OUT OF REFERENCE UNITS RANGE LAB APTT(LOINC 22.0-34.0 sec ) High Activated PTT 36.0 Performed By: #### APTT #### [place] [address] CONSULT PROG Observed: 01/15/2018 Status: COMPLETED Source: [place] 9:44 AM CLINIC OTHER CAMPUS REPOSITORY HNO ID: [id number] Author: Elder Granda Service: Critical Care Author [...] Ventilator Mode: Pressure Regulated Volume Control (01/15/18 0740) Set Ventilator Respiratory Rate (BPM): 18 (01/15/18 0740) Total Respiratory Rate (BPM): 18 (01/15/18 0740) Tidal Volume Set (mL): 500 (01/15/18 0740) Exhaled Tidal Volume (mL): 502 (01/15/18739) Minute Volume (L): 9.1 (01/15/1840) Peak Inspiratory Pressure (cm H2O): 22 (01/15/18739) PEEP/CPAP (cm H2O): 5 (01/15/18739) HEMODYNAMIC DATA: Reviewed NUTRITION: Enteral Feeds: No NPO DATA: Diagnostic tests reviewed for today's visit, films/specimens were personally reviewed by me: Most recent labs and imaging results. LABS: Recent Labs 01/15/18 0745 01/15/18 0430 01/15/18 0400 01/14/18220901/14/18 1555 TROPI -- -- -- -- 0.228* [...] PMH of AAA who was transferred to [facility] in shock 2/2 ruptured AAA c/b [...] AM PROGRESS Observed: 01/15/2018 Status: COMPLETED Source: [place] 9:18 AM [facility] OTHER CAMPUS REPOSITORY O ID: [id number] Author: Kannan Felder Service: General Surgery Author Type: Resident Type: Progress Notes Filed: 01/15/2018 9:22 AM Note Text: Attestation signed by Mark Woods at 01/16/2018 11:25 AM Care per vasc gen surg available to asisst with closure if needed Mark Woods MD PROGRESS NOTE EGS Surgery Progress Note Emergency General Surgery Service Pager: For questions or concerns Mon-Tue 6a-5p please page [phone]. After 5pm and on Weekends and Holidays, please page [phone] if in ICU or [phone] if on RNF. SERVICE DATE: 01/15/2018 SERVICE [...] ?C (98.2 ?F) Date 01/14/18 07 - 01/15/1865801/15/18 07 - 01/16/18 0659 Shift 2668-2158 5457-7349 9000-3701 24 Hour Total 0715-6309 0877-3983 5709-5545 24 Hour Total I N T A [...] 01/12/18 0749 Abdomen) 1000 1000 2000 Tubes 9755 783 4318 3955 75 75 Drain/Tube Output (Drain/Tube 01/12/18 0100 Hemovac Midline Anterior Abdomen) 500 1125 1625 75 75 Drain/Tube Output (Drain/Tube 01/12/18 Fecal Management System) 250 30 0 280 0 0 Output (GI Feed/Drain 01/12/18 0100) 1100 736 683 0994 0 0 Dialysis 0 924 2623 3547 [...] Noted - Ruptured abdominal aortic aneurysm (AAA) ([facility]) 01/12/2018 - Encephalopathy 01/13/2018 - DIC (disseminated intravascular coagulation) ([facility]) 01/12/2018 - Hemorrhagic shock ([facility]) 01/12/2018 - Acute respiratory failure ([facility]) 01/12/2018 - Cardiac arrest ([facility]) 01/12/2018 - Hypernatremia 01/12/2018 - Hypokalemia 01/12/2018 - Hypomagnesemia 01/12/2018 - Hypophosphatemia 01/12/2018 - Hyperchloremia 01/12/2018 - AAA (abdominal aortic aneurysm, ruptured) ([facility]) 01/12/2018 Overview Note: Added automatically from request for surgery [id number] Assessment/Plan with Ruptured AAA s/p Emergent Repair, [...] January 15, 2018 TIME: 9:18 AM PAGER: [phone] PROTIME Collected: 01/15/2018 Status: F Source: [facility] 7:45 AM HEALTH SYSTEM REPOSITORY TYPE CODE TESTS RESULT OUT OF REFERENCE UNITS RANGE LAB PTI(LOINC) 9.3-11.9 sec Prothrombin High Time 12.2 LAB INR(LOINC) INR 1.18 Result Comment: Standard Therapy 2.0-3.0 High Dose 2.5-3.5 Performed By: #### PT #### [place] [address] FIBRINOGEN Collected: 01/15/2018 Status: F Source: [facility] 7:45 AM HEALTH SYSTEM REPOSITORY TYPE CODE TESTS RESULT OUT OF REFERENCE UNITS RANGE LAB FIB(LOINC) 180-430 mg/dl High Fibrinogen 497 Performed By: #### FIB #### [place] [address] MISC. SEND OUT Collected: 01/15/2018 Status: F Source: [facility] 7:45 AM HEALTH SYSTEM REPOSITORY TYPE CODE TESTS RESULT OUT OF REFERENCE UNITS RANGE LAB NAME1(LOIN C) Test Name APTT LAB RES(LOINC) Result 45.1 sec LAB REF(LOINC) Reference Range 0.0-40.0 sec LAB ADDR(LOINC ) Lab Name/Address See below Result Comment: Testing performed at [facility] [place] [address] Performed By: #### MISC2 #### [place] [address] PROGRESS Observed: 01/15/2018 Status: COMPLETED Source: [place] 6:29 AM CLINIC OTHER CAMPUS REPOSITORY O ID: [id number] Author: Dionicio (Res) Rodney Service: Vascular Surgery Author Type: Resident Type: Progress Notes Filed: 01/15/2018 8:11 AM Note Text: Vascular Surgery Progress Note SERVICE DATE: 01/15/2018 Vascular AND Thoracic Surgery Service Pager: For questions or concerns Mon-Fri 6a-5p please page [phone]. After 5pm and on Weekends and Holidays, please page [phone] if in ICU or [phone] if on RNF. Subjective SUBJECTIVE: SVT requiring [...] Therapy: Ventilator IANDO: Date 01/14/18 07 - 01/15/18 0659 01/15/18 07 - 01/16/18 0659 Shift 5425-8088 3761-1301 5505-8550 24 Hour Total 9881-4054 8238-6900 3647-9688 24 Hour Total I N T A [...] 01/12/18 0749 Abdomen) 1000 1000 2000 Tubes 9624 310 8923 3955 Drain/Tube Output (Drain/Tube 01/12/18 0100 Hemovac Midline Anterior Abdomen) 500 1125 1625 Drain/Tube Output (Drain/Tube 01/12/18 Fecal Management System) 250 30 0 280 Output (GI Feed/Drain 01/12/18 0100) 1100 059 409 2680 Dialysis 0 924 2623 3547 Dialysis Output [...] Noted - Ruptured abdominal aortic aneurysm (AAA) ([facility]) 01/12/2018 - Encephalopathy 01/13/2018 - DIC (disseminated intravascular coagulation) ([facility]) 01/12/2018 - Hemorrhagic shock ([facility]) 01/12/2018 - Acute respiratory failure ([facility]) 01/12/2018 - Cardiac arrest ([facility]CC) 01/12/2018 - Hypernatremia 01/12/2018 - Hypokalemia 01/12/2018 - Hypomagnesemia 01/12/2018 - Hypophosphatemia 01/12/2018 - Hyperchloremia 01/12/2018 - AAA (abdominal aortic aneurysm, ruptured) (HCC) 01/12/2018 Overview Note: Added automatically from request for surgery [id number] 77 year old male with Ruptured AAA [...] 1 VIEW Observed: 01/15/2018 Status: F Source: [facility] 6:00 AM HEALTH SYSTEM REPOSITORY Performed at [facility] APPROVED BY: KRISTIE KHAN MD EXAM TITLE: [...] zones. PROGRESS Observed: 01/15/2018 Status: COMPLETED Source: [place] 5:06 AM [facility] OTHER CAMPUS REPOSITORY O ID: [id number] Author: Downtime Note Service: (none) Author Type: (none) Type: Progress Notes Filed: 01/15/2018 5:12 AM Note Text: Epic Scheduled Downtime: 01/15/2018 1:05:00 AM to 01/15/2018 4:56:36 AM HEMOGRAM/DIFF Collected: 01/15/2018 Status: F Source: [facility] 4:30 AM HEALTH SYSTEM REPOSITORY TYPE CODE [...] LAB MONON(LOIN 0.30-0.82 thou/cmm C) Low Abs. Hunt 0.29 LAB EOSN(LOINC 0.04-0.54 thou/cmm ) Abs. High Eosin 0.89 LAB BASON(LOIN 0.01-0.08 thou/cmm C) Abs. Baso 0.04 Result Comment: Smear scanned; tech agrees with automated differential Performed By: #### CBCD1 #### [place] [address] LACTIC ACID Collected: 01/15/2018 Status: F Source: [facility] 4:00 AM HEALTH SYSTEM REPOSITORY TYPE CODE TESTS RESULT OUT OF REFERENCE UNITS RANGE LAB LAC(LOINC) 0.4-2.0 mEq/L Lactic Acid 1.7 Performed By: #### LAC #### [place] [address] MAGNESIUM BLOOD Collected: 01/15/2018 Status: F Source: [facility] 4:00 AM HEALTH SYSTEM REPOSITORY TYPE CODE TESTS RESULT OUT OF REFERENCE UNITS RANGE LAB MAG(LOINC) 1.6-2.6 mg/dL Magnesium Blood 2.3 Performed By: #### MAG #### [place] [address] BASIC PANEL Collected: 01/15/2018 Status: F Source: [facility] 4:00 AM HEALTH SYSTEM REPOSITORY TYPE CODE [...] Gap 15 Performed By: #### P8 #### [place] [address] PHOSPHORUS BLOOD Collected: 01/15/2018 Status: F Source: [facility] 4:00 HEALTH SYSTEM REPOSITORY TYPE CODE TESTS RESULT OUT OF REFERENCE UNITS RANGE LAB PHOS(LOINC 2.5-4.9 mg/dL ) Low alert Phosphorus Blood 1.9 Result Comment: RESULT RECHECKED Performed By: #### PHOS #### [place] [address] OPERATIVE NO Observed: 01/15/2018 Status: COMPLETED Source: [place] 12:00 AM CLINIC OTHER CAMPUS REPOSITORY O ID: [id number] Author: Venkat Paniagua Service: Vascular Surgery Author Type: Physician Type: Operative Report Filed: 01/22/2018 7:14 PM Note Text: [facility] - Operative Report SURGEON: Venkat Paniagua MD PATIENT NAME: NAVEEN AKINS CSN: [id number] DATE OF SURGERY: 01/14/2018 DATE OF : 1940 SEX/AGE: M/77 PATIENT TYPE: I HOSP SVC: LICO LOCATION: [id number] DATE OF SURGERY: 01/14/2018 SURGEON: Venkat Paniagua MD The patient is an inpatient. PREOPERATIVE DIAGNOSIS: Status post ruptured abdominal aortic aneurysm with ABThera device in place. POSTOPERATIVE DIAGNOSIS: Status post ruptured abdominal aortic aneurysm with ABThera device in place. PROCEDURE: Removal of packing from retroperitoneum, intraabdominal irrigation, examination of the retroperitoneum and bowel, and replacement of ABThera device. REGISTERED ROUTE ASSOCIATE: WILLIE Alvarez. ANESTHESIA: General. HISTORY: This is [...] condition. Venkat Paniagua MD Vascular Surgery DENA:mika /[id number] BLOOD GAS ARTERIAL Collected: 01/14/2018 Status: F Source: [facility] 10:10 PM HEALTH SYSTEM REPOSITORY TYPE CODE [...] Excess -4.0 Performed By: #### ABG #### [place] [address] FIBRINOGEN Collected: 01/14/2018 Status: F Source: [facility] 10:10 PM HEALTH SYSTEM REPOSITORY TYPE CODE TESTS RESULT OUT OF REFERENCE UNITS RANGE LAB FIB(LOINC) 180-430 mg/dl High Fibrinogen 518 Performed By: #### FIB #### [place] [address] PROTIME Collected: 01/14/2018 Status: F Source: [facility] 10:10 PM HEALTH SYSTEM REPOSITORY TYPE CODE TESTS RESULT OUT OF REFERENCE UNITS RANGE LAB PTI(LOINC) 9.3-11.9 sec Prothrombin High Time 13.1 LAB INR(LOINC) INR 1.23 Result Comment: Standard Therapy 2.0-3.0 High Dose 2.5-3.5 Performed By: #### PT #### [facility] [address] [place] [address] ACTIVATED PTT Collected: 01/14/2018 Status: F Source: [facility] 10:10 PM HEALTH SYSTEM REPOSITORY TYPE CODE TESTS RESULT OUT OF REFERENCE UNITS RANGE LAB APTT(LOINC 22.0-34.0 sec ) High Activated PTT 37.6 Performed By: #### APTT #### [facility] [address] [place] [address] HEMOGRAM Collected: 01/14/2018 Status: F Source: [facility] 10:10 PM HEALTH SYSTEM REPOSITORY TYPE CODE [...] MPV 10.9 Performed By: #### CBC1 #### [facility] [address] [place] [address] LACTIC ACID Collected: 01/14/2018 Status: F Source: [facility] 10:10 PM HEALTH SYSTEM REPOSITORY TYPE CODE TESTS RESULT OUT OF REFERENCE UNITS RANGE LAB LAC(LOINC) 0.4-2.0 mEq/L Lactic Acid 1.9 Performed By: #### LAC #### [facility] [address] [place] [id number] BASIC PANEL Collected: 01/14/2018 Status: F Source: [facility] 10:10 PM HEALTH SYSTEM REPOSITORY TYPE CODE [...] Gap 13 Performed By: #### P8 #### [facility] [address] [place] [id number] ANES POST Observed: 01/14/2018 Status: COMPLETED Source: [place] 6:38 PM CLINIC OTHER CAMPUS REPOSITORY O ID: [id number] Author: Anupam Juárez Service: Anesthesiology Author Type: Physician Type: Anesthesia PostOp Filed: 01/14/2018 6:39 PM Note Text: POST ANESTHESIA EVALUATION NOTE SERVICE DATE: 01/14/2018 SERVICE TIME: 6:38 PM : 1940 Vitals: 01/14/18 1045 01/14/18 1130 01/14/18 1300 01/14/18 1800 Temp: 36.5 ?C (97.7 ?F) 36.8 ?C (98.2 ?F) 36.4 ?C (97.5 ?F) 36.5 ?C (97.7 ?F) 01/14/18 1745 01/14/18 1800 01/14/18 1815 01/14/18 1830 Arterial BP 1: 99/52 109/57 116/54 115/57 BP: 102/55 119/65 124/69 127/79 01/14/18174401/14/18 1800 01/14/18 18101/14/18 1830 Pulse: 106 104 108 105 01/14/18174401/14/18 1800 01/14/18 18101/14/18 1830 Resp: 01/14/18174401/14/18179901/14/18181401/14/18 1830 SpO2: 98% 100% 98% 99% Validated [...] NURSING PROG Observed: 01/14/2018 Status: COMPLETED Source: [place] 4:19 PM CLINIC OTHER CAMPUS REPOSITORY HNO ID: [id number] Author: Jose (Rn) MAGALY Jasso Service: Nursing Author Type: Registered Nurse Type: Nursing Progress Note Filed: 01/14/2018 4:21 PM Note Text: 1540. Noted spontaneous incease in hr to 180's. Dr. degroot in room 6mg of Adenosine ivp followed by amnio 150mg bolus and drip started at 1mg for 6hrs BLOOD GAS ARTERIAL Collected: 01/14/2018 Status: F Source: [facility] 3:55 PM HEALTH SYSTEM REPOSITORY TYPE CODE [...] Excess -4.6 Performed By: #### ABG #### [place] [address] FIBRINOGEN Collected: 01/14/2018 Status: F Source: [facility] 3[facility] PM HEALTH SYSTEM REPOSITORY TYPE CODE TESTS RESULT OUT OF REFERENCE UNITS RANGE LAB FIB(LOINC) 180-430 mg/dl High Fibrinogen 490 Performed By: #### FIB #### [place] [address] PROTIME Collected: 01/14/2018 Status: F Source: [address] HEALTH SYSTEM REPOSITORY TYPE CODE TESTS RESULT OUT OF REFERENCE UNITS RANGE LAB PTI(LOINC) 9.3-11.9 sec Prothrombin High Time 13.4 LAB INR(LOINC) INR 1.31 Result Comment: Standard Therapy 2.0-3.0 High Dose 2.5-3.5 Performed By: #### PT #### [place] [address] ACTIVATED PTT Collected: 01/14/2018 Status: F Source: [facility] 3[facility] SYSTEM REPOSITORY TYPE CODE TESTS RESULT OUT OF REFERENCE UNITS RANGE LAB APTT(LOINC 22.0-34.0 sec ) High Activated PTT 38.6 Performed By: #### APTT #### [place] [address] LACTIC ACID Collected: 01/14/2018 Status: F Source: [facility] 3[facility] SYSTEM REPOSITORY TYPE CODE TESTS RESULT OUT OF REFERENCE UNITS RANGE LAB LAC(LOINC) 0.4-2.0 mEq/L High alert Lactic Acid 2.4 Performed By: #### LAC #### [place] [address] BASIC PANEL Collected: 01/14/2018 Status: F Source: [address] HEALTH SYSTEM REPOSITORY TYPE CODE TESTS [...] Gap 14 Performed By: #### P8 #### [place] [address] TROPONIN I Collected: 01/14/2018 Status: F Source: [facility] 3:[address] [place] [address] SYSTEM REPOSITORY TYPE CODE TESTS RESULT OUT OF REFERENCE UNITS RANGE LAB TROP(LOINC) 0.015-0.045 ng/ml High Troponin I 0.228 Performed By: #### TROP #### [place] [address] HEPATIC PANEL Collected: 01/14/2018 Status: F Source: [facility] 3:55 HEALTH SYSTEM REPOSITORY TYPE CODE TESTS [...] result reportable. Performed By: #### HEPAP #### [place] [address] HEMOGRAM Collected: 01/14/2018 Status: F Source: [facility] 3:50 PM HEALTH SYSTEM REPOSITORY TYPE CODE [...] MPV 10.7 Performed By: #### CBC1 #### [facility] [address] [place] [address] CONSULT Observed: 01/14/2018 Status: COMPLETED Source: [place] 3:39 PM CLINIC OTHER CAMPUS REPOSITORY HNO ID: [id number] Author: Gilbert Tucker Service: Cardiovascular Medicine Author Type: Physician Type: Consults Filed: 01/14/2018 3:49 PM Note Text: Card Consult Dictated Job [id number] 1.SVT in pt with AAA rupture, s/p arrest on FORENSIC CHEMIST, pressors; Echo EF 55%-SVT related to meds, [place] -On IV Amio -now sinus tach will follow Thanks Gilbert Tucker MD Pager [phone] EKG (AK,AV,EU,FV,HL,CYNTHIA,MM,SP) Observed: Status: F Source: [place] 01/14/2018 2:46 PM CLINIC OTHER CAMPUS REPOSITORY NAME : NAVEEN AKINS PID : [id number] : 1940 Gender : Male Race : ORD : [id number] Procedure Date : Jan 14 2018 14:46 Edit Date : Jan 16 2018 09:08 Diagnosis:SINUS TACHYCARDIA WITH PREMATURE ATRIAL COMPLEXES LOW VOLTAGE QRS NONSPECIFIC T WAVE ABNORMALITY ABNORMAL ECG WHEN COMPARED WITH ECG OF 13-JAN-2018 20:19, PREMATURE ATRIAL COMPLEXES ARE NOW PRESENT Confirmed by MD ELAM G (2) on 01/16/2018 9:08:41 AM Ventricular Rate : 124 BPM Atrial Rate : 124 BPM P-R Interval : 122 ms QRS Duration : 70 ms Q-T Interval : 406 ms QTC Calculation(Bezet) : 583 ms P Dobson : 15 degrees R Dobson : -20 degrees T Dobson : 23 degrees Test Reason : Arrhythmia Location : 6 : [facility] 3233 Overread By : MD ELAM G Editted By : MD ELAM G Referred By : PAULO LOVELACE Acquired by : LAM HOWELL PROGRESS Observed: 01/14/2018 Status: COMPLETED Source: [place] 2:18 PM CLINIC OTHER CAMPUS REPOSITORY HNO ID: [id number] Author: Paulo (Clinical Applications Manager) Radu Service: Critical Care Author Type: Nurse [...] 2 days Airway Airway Endotracheal Tube 01/12/18 113 2 days PHYSICAL EXAM PERFORMED: Cardiovascular: Regular rhythm Respiratory: Reduced breath sounds bilat %FIO2 Min: 60 Max: 90 Abdomen: Wound vac in place Draining sanguinous drainage Extremities: Edema- Yes Generalized edema Neurologic: Sedated Respiratory/Nursing Documentation: O2 Therapy: Ventilator (01/14/18 1200) Invasive Ventilator Mode: Pressure Regulated Volume Control (01/14/181136) Set Ventilator Respiratory Rate (BPM): 18 (01/14/18 113) Total Respiratory Rate (BPM): 18 (01/14/181136) Tidal Volume Set (mL): 500 (01/14/181136) Exhaled Tidal Volume (mL): 503 (01/14/18 113) Minute Volume (L): 9.1 (01/14/18 113) Peak Inspiratory Pressure (cm H2O): 24 (01/14/181136) PEEP/CPAP (cm H2O): 8 (01/14/181136) HEMODYNAMIC DATA: [...] male with H/O AAA was transferred from [place] in shock 2/2 ruptured AAA s/p cardiac [...] 40 minutes excluding procedures. SIGNATURE: Paulo Lovelace APRN.KEON PATIENT NAME: Naveen Akins DATE: January 14, 2018 TIME: 2:18 PM PROGRESS Observed: 01/14/2018 Status: COMPLETED Source: [place] 12:39 PM CLINIC OTHER CAMPUS REPOSITORY HNO ID: [id number] Author: Roxane (Rn) MAGALY Silva Service: Dialysis Author Type: Registered Nurse Type: Progress Notes Filed: 01/14/2018 12:40 PM Note Text: CRRT restarted without problem. Report given to COATING MACHINE FEEDER. PT stable BLOOD GAS ARTERIAL Collected: 01/14/2018 Status: F Source: [facility] 12:00 PM HEALTH SYSTEM REPOSITORY TYPE [...] Excess -3.8 Performed By: #### ABG #### [place] [address] HEMOGRAM Collected: 01/14/2018 Status: F Source: [facility] 12:00 PM HEALTH SYSTEM REPOSITORY TYPE [...] MPV 10.7 Performed By: #### CBC1 #### [place] [address] BASIC PANEL Collected: 01/14/2018 Status: F Source: [facility] 12:00 HEALTH SYSTEM REPOSITORY TYPE CODE TESTS [...] Gap 14 Performed By: #### P8 #### [place] [address] LACTIC ACID Collected: 01/14/2018 Status: F Source: [facility] 12:00 HEALTH SYSTEM REPOSITORY TYPE CODE TESTS RESULT OUT OF REFERENCE UNITS RANGE LAB LAC(LOINC) 0.4-2.0 mEq/L Lactic Acid 1.9 Performed By: #### LAC #### [place] [address] FIBRINOGEN Collected: 01/14/2018 Status: F Source: [facility] 12:[facility] HEALTH SYSTEM REPOSITORY TYPE CODE TESTS RESULT OUT OF REFERENCE UNITS RANGE LAB FIB(LOINC) 180-430 mg/dl Fibrinogen 374 Performed By: #### FIB #### [place] [address] PROTIME Collected: 01/14/2018 Status: F Source: [facility] 12:00 PM HEALTH SYSTEM REPOSITORY TYPE CODE TESTS RESULT OUT OF REFERENCE UNITS RANGE LAB PTI(LOINC) 9.3-11.9 sec Prothrombin High Time 15.0 LAB INR(LOINC) INR 1.48 Result Comment: Standard Therapy 2.0-3.0 High Dose 2.5-3.5 Performed By: #### PT #### [facility] [address] [place] [address] ACTIVATED PTT Collected: 01/14/2018 Status: F Source: [facility] 12:00 HEALTH SYSTEM REPOSITORY TYPE CODE TESTS RESULT OUT OF REFERENCE UNITS RANGE LAB APTT(LOINC 22.0-34.0 sec ) High Activated PTT 48.7 Performed By: #### APTT #### [facility] [address] [place], [place] [address] PROGRESS Observed: 01/14/2018 Status: COMPLETED Source: [place] 11:00 AM [facility] OTHER CAMPUS REPOSITORY HNO ID: [id number] Author: Kannan Felder Service: General Surgery Author Type: Resident Type: Progress Notes Filed: 01/14/2018 12:04 PM Note Text: Attestation signed by Mark Woods at 01/14/2018 2:33 PM Seen in OR Mark Woods MD PROGRESS NOTE EGS Surgery Progress Note Emergency General Surgery Service Pager: For questions or concerns Mon-Tue 6a-5p please page [phone]. After 5pm and on Weekends and Holidays, please page [phone] if in ICU or [phone] if on RNF. SERVICE DATE: 01/14/2018 SERVICE [...] 0659 01/14/18 07 - 01/15/18 0659 Shift 8134-9270 2514-5214 0038-5879 24 Hour Total 8661-0187 0862-9695 2560-6013 24 Hour Total I N T A [...] Abdomen) 2500 700 3200 500 500 Tubes 267 773 7737 1950 1350 1350 Drain/Tube Output (Drain/Tube 01/12/18 [...] tests reviewed for today's visit: Recent Labs 01/14/1843901/13/185 01/13/18 1600 PH 7.400 7.359 7.370 PCO2 37.4 42.0 39.1 PO2 87.3 104.2* 65.2* BE -1.8 -2.2 -2.8 Recent Labs 01/14/18 04401/13/18221401/13/18 2120 01/13/18 1600 01/13/18 1015 01/13/18 0615 [...] Noted - Ruptured abdominal aortic aneurysm (AAA) ([facility]) 01/12/2018 - Encephalopathy 01/13/2018 - DIC (disseminated intravascular coagulation) ([facility]) 01/12/2018 - Hemorrhagic shock ([facility]) 01/12/2018 - Acute respiratory failure ([facility]) 01/12/2018 - Cardiac arrest ([facility]) 01/12/2018 - Hypernatremia 01/12/2018 - Hypokalemia 01/12/2018 - Hypomagnesemia 01/12/2018 - Hypophosphatemia 01/12/2018 - Hyperchloremia 01/12/2018 - AAA (abdominal aortic aneurysm, ruptured) ([facility]) 01/12/2018 Overview Note: Added automatically from request for surgery [id number] Assessment/Plan with Ruptured AAA s/p Emergent Repair, [...] January 14, 2018 TIME: 12:02 PM PAGER: [phone] PROGRESS Observed: 01/14/2018 Status: COMPLETED Source: [place] 10:07 AM [facility] OTHER CAMPUS REPOSITORY O ID: [id number] Author: Renate Handy Service: Nephrology Author Type: Physician Type: Progress Notes Filed: 01/14/2018 10:14 AM Note Text: NEPHROLOGY PROGRESS NOTE SERVICE DATE: 01/14/2018 SERVICE TIME: 10:08 AM Subjective INTERVAL HISTORY: Pt went to OR this morning for wash out and check bowel. Per RN, everthing was stable He just arrived back and [...] No edema. ? ? Labs: Recent Labs 01/14/1843901/13/18221401/13/18211901/13/18159901/13/185 01/13/18 0615 01/13/18 0455 01/12/18 1140 CREAT [...] in this interval not displayed. Recent Labs 01/14/1843901/13/18221401/13/18159901/13/18 1015 01/13/18 0455 PH 7.400 7.359 7.370 [...] do not hesitate to contact me at [phone] with any concerns SIGNATURE: Renate Handy DO PATIENT NAME: Naveen Akins DATE: January 14, 2018 TIME: 10:08 AM PAGER/CONTACT #: NURA PREOP Observed: 01/14/2018 Status: COMPLETED Source: [place] 8:12 AM [facility] OTHER CAMPUS REPOSITORY O ID: [id number] Author: Anupam Juárez Service: Anesthesiology Author Type: [...] Chente Whittaker Last Rate: 200 mL/hr at 01/14/18 0608 3 g at 01/14/18 06 NaCl 0.9% 1,000 mL iv bolus 1,000 [...] at 01/14/18 0607 200 mL/hr at 01/14/18 06 dextrose 40 % 15 g 15 g [...] H Elder Yu) Kalee 15 mL at 01/13/182124 perflutren lipid microspheres [...] January 14, 2018 TIME: 8:12 AM CSN: [id number] CONSULT PROG Observed: 01/14/2018 Status: COMPLETED Source: [place] 7:27 AM CLINIC OTHER CAMPUS REPOSITORY HNO ID: [id number] Author: Elder Yu) Kalee Service: Critical Care [...] PMH of AAA who was transferred to [facility] in shock 2/2 ruptured AAA c/b [...] AM PROGRESS Observed: 01/14/2018 Status: COMPLETED Source: [place] 6:42 AM CLINIC OTHER CAMPUS REPOSITORY O ID: [id number] Author: Dionicio (Luther Stevens Service: Vascular Surgery Author Type: Resident Type: Progress Notes Filed: 01/14/2018 8:48 AM Note Text: Vascular Surgery Progress Note SERVICE DATE: 01/14/2018 Vascular AND Thoracic Surgery Service Pager: For questions or concerns Mon-Fri 6a-5p please page [phone]. After 5pm and on Weekends and Holidays, please page [phone] if in ICU or [phone] if on RNF. Subjective SUBJECTIVE: CVVHD started [...] 26.85 kg/m? O2 Therapy: Ventilator IANDO: Date 01/13/18699 - 01/14/1865801/14/18 07 - 01/15/18 0659 Shift 8028-9089 6486-2771 2364-9284 24 Hour Total 3303-0091 7997-8948 9948-4660 24 Hour Total I N T A [...] 01/12/18 0749 Abdomen) 2500 700 3200 Tubes 290 890 4502 1950 Drain/Tube Output (Drain/Tube 01/12/18 0100 Hemovac [...] Noted - Ruptured abdominal aortic aneurysm (AAA) ([facility]) 01/12/2018 - Encephalopathy 01/13/2018 - DIC (disseminated intravascular coagulation) ([facility]) 01/12/2018 - Hemorrhagic shock ([facility]) 01/12/2018 - Acute respiratory failure ([facility]) 01/12/2018 - Cardiac arrest ([facility]) 01/12/2018 - Hypernatremia 01/12/2018 - Hypokalemia 01/12/2018 - Hypomagnesemia 01/12/2018 - Hypophosphatemia 01/12/2018 - Hyperchloremia 01/12/2018 - AAA (abdominal aortic aneurysm, ruptured) ([facility]) 01/12/2018 Overview Note: Added automatically from request for surgery [id number] 77 year old male with Ruptured AAA [...] 1 VIEW Observed: 01/14/2018 Status: F Source: [facility] 6:04 AM HEALTH SYSTEM REPOSITORY Performed at [facility] APPROVED BY: KRISTIE KHAN MD EXAM TITLE: [...] described. FIBRINOGEN Collected: 01/14/2018 Status: F Source: [facility] 4:40 AM HEALTH SYSTEM REPOSITORY TYPE CODE TESTS RESULT OUT OF REFERENCE UNITS RANGE LAB FIB(LOINC) 180-430 mg/dl High Fibrinogen 452 Performed By: #### FIB #### [place] [address] ACTIVATED PTT Collected: 01/14/2018 Status: F Source: [facility] 4:40 AM HEALTH SYSTEM REPOSITORY TYPE CODE TESTS RESULT OUT OF REFERENCE UNITS RANGE LAB APTT(LOINC 22.0-34.0 sec ) High Activated PTT 42.7 Performed By: #### APTT #### [place] [address] PROTIME Collected: 01/14/2018 Status: F Source: [facility] 4:40 AM HEALTH SYSTEM REPOSITORY TYPE CODE TESTS RESULT OUT OF REFERENCE UNITS RANGE LAB PTI(LOINC) 9.3-11.9 sec Prothrombin High Time 14.9 LAB INR(LOINC) INR 1.48 Result Comment: Standard Therapy 2.0-3.0 High Dose 2.5-3.5 Performed By: #### PT #### [facility] [address] [place] [id number] HEMOGRAM/DIFF Collected: 01/14/2018 Status: F Source: [facility] 4:40 HEALTH SYSTEM REPOSITORY TYPE CODE TESTS [...] LAB MONON(LOIN 0.30-0.82 thou/cmm C) Low Abs. Hunt 0.27 LAB EOSN(LOINC 0.04-0.54 thou/cmm ) Abs. High Eosin 0.83 LAB BASON(LOIN 0.01-0.08 thou/cmm C) Abs. Baso 0.02 Result Comment: Smear scanned; tech agrees with automated differential Performed By: #### CBCD1 #### [facility] [address] [place] [address] MAGNESIUM BLOOD Collected: 01/14/2018 Status: F Source: [facility] 4:40 AM HEALTH SYSTEM REPOSITORY TYPE CODE TESTS RESULT OUT OF REFERENCE UNITS RANGE LAB MAG(LOINC) 1.6-2.6 mg/dL Magnesium Blood 1.9 Performed By: #### MAG #### [place] [address] PHOSPHORUS BLOOD Collected: 01/14/2018 Status: F Source: [facility] 4:40 HEALTH SYSTEM REPOSITORY TYPE CODE TESTS RESULT OUT OF REFERENCE UNITS RANGE LAB PHOS(LOINC 2.5-4.9 mg/dL ) Phosphorus Blood 3.1 Performed By: #### PHOS #### [place] [address] BASIC PANEL Collected: 01/14/2018 Status: F Source: [facility] 4:40 HEALTH SYSTEM REPOSITORY TYPE CODE TESTS [...] Gap 13 Performed By: #### P8 #### [address] [place] [address] LACTIC ACID Collected: 01/14/2018 Status: F Source: [facility] 4:40 AM HEALTH SYSTEM REPOSITORY TYPE CODE TESTS RESULT OUT OF REFERENCE UNITS RANGE LAB LAC(LOINC) 0.4-2.0 mEq/L High alert Lactic Acid 2.4 Performed By: #### LAC #### [facility] [address] [place], [place] [address] CONSULT Observed: 01/14/2018 Status: COMPLETED Source: [place] 12:00 AM CLINIC OTHER CAMPUS REPOSITORY HNO ID: [id number] Author: Gilbert Tucker Service: Cardiovascular Medicine Author Type: Physician Type: Consults Filed: 01/15/2018 11:32 AM Note Text: [facility] - Consultation PATIENT NAME: NAVEEN AKINS CSN: [id number] DATE OF : 1940 SEX/AGE: M/77 PATIENT TYPE: I HOSP SVC: [facility] LOCATION: [id number] DATE OF SERVICE: 01/14/[address] Venkat Paniagua. INDICATION: SVT. HISTORY OF PRESENT ILLNESS: This is very ill 77-year-old gentleman transferred from [facility] couple days ago. He had an AAA [...] with you. Gilbert Tucker MD Cardiology DAC:modl /[id number] BLOOD GAS ARTERIAL Collected: 01/13/2018 Status: F Source: [facility] 10:15 PM HEALTH SYSTEM REPOSITORY TYPE CODE [...] Excess -2.2 Performed By: #### ABG #### [place] [address] BASIC PANEL Collected: 01/13/2018 Status: F Source: [facility] 10:[address] [place] [address] SYSTEM REPOSITORY TYPE CODE TESTS RESULT OUT [...] Gap 11 Performed By: #### P8 #### [place] [address] PROTIME Collected: 01/13/2018 Status: F Source: [facility] 10:[address] [facility] SYSTEM REPOSITORY TYPE CODE TESTS RESULT OUT OF REFERENCE UNITS RANGE LAB PTI(LOINC) 9.3-11.9 sec Prothrombin High Time 14.8 LAB INR(LOINC) INR 1.46 Result Comment: Standard Therapy 2.0-3.0 High Dose 2.5-3.5 Performed By: #### PT #### [facility] [address] [place] [address] LACTIC ACID Collected: 01/13/2018 Status: F Source: [facility] 10:[facility] HE[facility] SYSTEM REPOSITORY TYPE CODE TESTS RESULT OUT OF REFERENCE UNITS RANGE LAB LAC(LOINC) 0.4-2.0 mEq/L High alert Lactic Acid 2.6 Performed By: #### LAC #### [facility] [address] [place] [address] HEMOGRAM Collected: 01/13/2018 Status: F Source: [facility] 10:15 HEALTH SYSTEM REPOSITORY TYPE CODE TESTS [...] MPV 11.2 Performed By: #### CBC1 #### [facility] [address] [place] [address] ACTIVATED PTT Collected: 01/13/2018 Status: F Source: [facility] 10:15 HEALTH SYSTEM REPOSITORY TYPE CODE TESTS RESULT OUT OF REFERENCE UNITS RANGE LAB APTT(LOINC 22.0-34.0 sec ) High Activated PTT 38.7 Performed By: #### APTT #### [place] [address] PROGRESS Observed: 01/13/2018 Status: COMPLETED Source: [place] 9:35 PM CLINIC OTHER CAMPUS REPOSITORY O ID: [id number] Author: Chente Whittaker Service: Critical Care Author [...] hours) at 01/13/182134 Last data filed at 01/13/181947 Gross per 24 hour Intake 9034 ml [...] to this patient is 45 minutes SIGNATURE: Chnete Whittaker MD PATIENT NAME: Naveen Akins DATE: January 13, 2018 TIME: 9:35 PM HGB Collected: 01/13/2018 Status: F Source: [facility] 9:20 PM HEALTH SYSTEM REPOSITORY TYPE CODE TESTS RESULT OUT OF RANGE REFERENCE UNITS LAB HGBI(LOINC) 13.7-17.5 g/dL Low Hgb 13.0 Performed By: #### HGBI #### [facility] [address] [place], [place] [address] EKG (AK,AV,EU,FV,HL,CYNTHIA,MM,SP) Observed: Status: F Source: [place] 01/13/2018 8:19 PM [facility] OTHER [facility] REPOSITORY NAME : NAVEEN AKINS PID : [id number] : 1940 Gender : Male Race : [...] ms QTC Calculation(Bezet) : 458 ms R Dobson : -16 degrees T Dobson : 38 degrees Test Reason : Arrhythmia Location : 6 : [place] [address] Overread By : MD ELAM G Editted By : MD ELAM G Referred By : PAULO LOVELACE Acquired by : Indira Silva PROGRESS Observed: 01/13/2018 Status: COMPLETED Source: [place] 7:00 PM [facility] REPOSITORY HNO ID: [id number] Author: Tim (Rn) MAGALY Santacruz Service: Dialysis Author Type: Registered Nurse Type: Progress Notes Filed: 01/13/2018 7:01 PM Note Text: CRRT tx initiated as ordered. Pt tolerating tx well thus far. See flow record for tx data. PHERESED PLATELETS Collected: 01/13/2018 Status: F Source: [facility] 5:24 PM HEALTH SYSTEM REPOSITORY TYPE CODE TESTS RESULT OUT OF REFERENCE UNITS RANGE LAB PPHR(LOINC) Pheresed Plts Done unit 1 Performed By: #### PPHRS #### [facility] [address] [place] [id number] CONSULT Observed: 01/13/2018 Status: COMPLETED Source: [place] 5:23 PM CLINIC OTHER CAMPUS REPOSITORY [facility] ID: [id number] Author: Mark Woods Service: General Surgery Author [...] Noted - Ruptured abdominal aortic aneurysm (AAA) ([facility]) 01/12/2018 - Encephalopathy 01/13/2018 - DIC (disseminated intravascular coagulation) ([facility]) 01/12/2018 - Hemorrhagic shock ([facility]) 01/12/2018 - Acute respiratory failure ([facility]) 01/12/2018 - Cardiac arrest ([facility]) 01/12/2018 - Hypernatremia 01/12/2018 - Hypokalemia 01/12/2018 - Hypomagnesemia 01/12/2018 - Hypophosphatemia 01/12/2018 - Hyperchloremia 01/12/2018 - AAA (abdominal aortic aneurysm, ruptured) ([facility]) 01/12/2018 Overview Note: Added automatically from request for surgery [id number] Assessment and Plan: Seen in OR today. No sign of ischemic colon Mark Woods MD, FACS Section of Trauma, Surgery Critical Care, and Acute Care Surgery Pager: [phone] Office: [phone] January 14, 2018 ========= SERVICE DATE: 01/13/2018 [...] questions or concerns Mon-Fri 6a-5p please page [phone]. After 5pm and on Weekends and Holidays, please page [phone] if in ICU or [phone] if on RNF. PHERESED PLATELETS Collected: 01/13/2018 Status: F Source: [facility] 5:23 PM HEALTH SYSTEM REPOSITORY TYPE CODE TESTS RESULT OUT OF REFERENCE UNITS RANGE LAB PPHR(LOINC) Pheresed Plts Done unit 1 Performed By: #### PPHRS #### [place] [address] CASE MGT INIT Observed: 01/13/2018 Status: COMPLETED Source: [facility] 4:44 PM CLINIC OTHER CAMPUS REPOSITORY HNO ID: [id number] Author: Lorrie (Rn) MAGALY Bo Service: (none) Author Type: Registered Nurse Type: Care Mgt Initial Assessment Filed: 01/13/2018 5:00 PM Note Text: CARE MANAGEMENT: ASSESSMENT AND DISCHARGE PLAN SERVICE DATE: 01/13/2018 SERVICE TIME: 4:46 PM PRIMARY CARE PHYSICIAN: Megan Hurst MD ADMISSION STATUS: Inpatient MEDICAL: Patient/[employer] Stated Goals: pt intubated, family hopeful for [...] therapy Has the Patient Been in a Group Home Facility in the Past 30 days? 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 [address] [place] [id number] HEMOGRAM Collected: 01/13/2018 Status: F Source: [facility] 4:00 HEALTH SYSTEM REPOSITORY TYPE CODE TESTS [...] MPV 11.2 Performed By: #### CBC1 #### [facility] [address] [place], [place] [address] BASIC PANEL Collected: 01/13/2018 Status: F Source: [facility] 4:00 HEALTH SYSTEM REPOSITORY TYPE CODE TESTS [...] Gap 14 Performed By: #### P8 #### [place] [address] FIBRINOGEN Collected: 01/13/2018 Status: F Source: [facility] 4:00 HEALTH SYSTEM REPOSITORY TYPE CODE TESTS RESULT OUT OF REFERENCE UNITS RANGE LAB FIB(LOINC) 180-430 mg/dl Fibrinogen 371 Performed By: #### FIB #### [place] [address] PROTIME Collected: 01/13/2018 Status: F Source: [facility] 4:00 HEALTH SYSTEM REPOSITORY TYPE CODE TESTS RESULT OUT OF REFERENCE UNITS RANGE LAB PTI(LOINC) 9.3-11.9 sec Prothrombin High Time 16.0 LAB INR(LOINC) INR 1.55 Result Comment: Standard Therapy 2.0-3.0 High Dose 2.5-3.5 Performed By: #### PT #### [place] [address] ACTIVATED PTT Collected: 01/13/2018 Status: F Source: [facility] 4:00 HEALTH SYSTEM REPOSITORY TYPE CODE TESTS RESULT OUT OF REFERENCE UNITS RANGE LAB APTT(LOINC 22.0-34.0 sec ) High Activated PTT 37.6 Performed By: #### APTT #### [place] [address] LACTIC ACID Collected: 01/13/2018 Status: F Source: [facility] 4:00 HEALTH SYSTEM REPOSITORY TYPE CODE TESTS RESULT OUT OF REFERENCE UNITS RANGE LAB LAC(LOINC) 0.4-2.0 mEq/L High alert Lactic Acid 4.0 Performed By: #### LAC #### [place] [address] RBC PRODUCTS Collected: 01/13/2018 Status: F Source: [facility] 2:08 PM HEALTH SYSTEM REPOSITORY TYPE CODE TESTS RESULT OUT OF REFERENCE UNITS RANGE LAB UNIT1(LOINC ) Xmatch Unit 1 see below Result Comment: Compatible LAB UNIT2(LOINC) Xmatch Unit 2 see below Result Comment: Compatible Performed By: #### RBCPS #### [facility] [address] [place] [address] PROGRESS Observed: 01/13/2018 Status: COMPLETED Source: [place] 12:07 PM CLINIC OTHER CAMPUS REPOSITORY HNO ID: [id number] Author: Wai Barcenas Service: Cardiovascular Medicine Author [...] Paniagua and Dr. Granda SIGNATURE: Wai Barcenas APRN.HOSTAGE NEGOTIATOR PATIENT NAME: Naveen Akins DATE: January 13, 2018 TIME: 12:08 PM PAGER/CONTACT #: [phone] PROCEDURE Observed: 01/13/2018 Status: COMPLETED Source: [place] 11:38 AM CLINIC OTHER CAMPUS REPOSITORY HNO ID: [id number] Author: Shen Lorenzo Service: Nephrology Author Type: Physician Type: Procedures Filed: 01/13/2018 12:27 PM Note Text: BEDSIDE PROCEDURE NOTE DIALYSIS CATHETER Date/Start Time: 01/13/2018 11:39 AM Performed by: SHEN LORENZO Authorized by: SHEN LORENZO Consent/Panna Maria Protocol Written Consent Obtained: Yes Sign In [...] to clinical factors necessitating an emergent procedure [facility] Central Line Insertion Checklist Utilized: yes [...] 1 VIEW Observed: 01/13/2018 Status: F Source: [facility] 11:34 AM HEALTH SYSTEM REPOSITORY Performed at [facility] APPROVED BY: Yajaira Veronica MD EXAM TITLE: [...] lungs. CONSULT Observed: 01/13/2018 Status: COMPLETED Source: [place] 11:15 AM CLINIC OTHER CAMPUS REPOSITORY HNO ID: [id number] Author: Shen Lorenzo Service: Nephrology Author Type: Physician Type: Consults Filed: 01/13/2018 11:38 AM Note Text: [facility] [address] [place], [place] [id number] Consult Note Patient's Name: Naveen Akins 11:16 AM 01/13/2018 Reason for Consult: TERENCE ATTENDING/ADMITTING PHYSICIAN:Venkat Paniagua History of Present Ilness: Naveen Akins is a 77 year old male with past history of CAD (remote PCI/stent placement) and HTN who is admitted with ruptured AAA yesterday. Pt was life flight from [place] ED where ruptured AAA was diagnosed. Pt [...] Also discussed with Dr. Granda, Wai Barcenas, LITERACY TUTOR, and Bedside RN (Jose). PAST MEDICAL HISTORY [...] is anuric with increased pressor requirement. D/w rfid developer, I agree that the pt will benefit [...] do not hesitate to contact me at [phone] with any concerns. Rosanna Talbert MD, (Shen Lorenzo) CONSULT PROG Observed: 01/13/2018 Status: COMPLETED Source: [place] 11:12 AM CLINIC OTHER CAMPUS REPOSITORY HNO ID: [id number] Author: Elder Yu) Kalee Service: Critical Care [...] PMH of AAA who was transferred to [facility] in shock 2/2 ruptured AAA c/b [...] GAS ARTERIAL Collected: 01/13/2018 Status: F Source: [facility] 10:15 AM HEALTH SYSTEM REPOSITORY TYPE CODE [...] Excess -3.0 Performed By: #### ABG #### [facility] [address] [place] [id number] HEMOGRAM Collected: 01/13/2018 Status: F Source: [facility] 10:15 AM HEALTH SYSTEM REPOSITORY TYPE CODE [...] MPV 10.6 Performed By: #### CBC1 #### [place] [address] BASIC PANEL Collected: 01/13/2018 Status: F Source: [facility] 10:15 AM HEALTH SYSTEM REPOSITORY TYPE CODE [...] Gap 16 Performed By: #### P8 #### [facility] 1 [place] [address] CREATININE,URINE Collected: 01/13/2018 Status: F Source: [place] 10:15 [facility] REPOSITORY TYPE CODE TESTS RESULT OUT OF RANGE REFERENCE UNITS LAB CREAU(LOINC mg/dL ) 35.9 Creatinine,U rine Performed By: #### CREAU #### [place] [address] SODIUM,URINE Collected: 01/13/2018 Status: F Source: [facility] 10:15 [facility] SYSTEM REPOSITORY TYPE CODE TESTS RESULT OUT OF RANGE REFERENCE UNITS LAB NAUR(LOINC) mEq/L 57 Sodium,Urine Performed By: #### NAUR #### [place] [address] LACTIC ACID Collected: 01/13/2018 Status: F Source: [facility] 10:15 [facility] SYSTEM REPOSITORY TYPE CODE TESTS RESULT OUT OF REFERENCE UNITS RANGE LAB LAC(LOINC) 0.4-2.0 mEq/L High alert Lactic Acid 5.5 Performed By: #### LAC #### [place] [address] PROTIME Collected: 01/13/2018 Status: F Source: [facility] 10:15 [facility] SYSTEM REPOSITORY TYPE CODE TESTS RESULT OUT OF REFERENCE UNITS RANGE LAB PTI(LOINC) 9.3-11.9 sec Prothrombin High Time 15.6 LAB INR(LOINC) INR 1.59 Result Comment: Standard Therapy 2.0-3.0 High Dose 2.5-3.5 Performed By: #### PT #### [place] [address] ACTIVATED PTT Collected: 01/13/2018 Status: F Source: [facility] 10:15 [facility] SYSTEM REPOSITORY TYPE CODE TESTS RESULT OUT OF REFERENCE UNITS RANGE LAB APTT(LOINC 22.0-34.0 sec ) High Activated PTT 40.9 Performed By: #### APTT #### [place] [address] FIBRINOGEN Collected: 01/13/2018 Status: F Source: [facility] 10:15 [facility] SYSTEM REPOSITORY TYPE CODE TESTS RESULT OUT OF REFERENCE UNITS RANGE LAB FIB(LOINC) 180-430 mg/dl Fibrinogen 311 Performed By: #### FIB #### [facility] [address] [place] [id number] PROGRESS Observed: 01/13/2018 Status: COMPLETED Source: [place] 6:20 AM CLINIC OTHER CAMPUS REPOSITORY HNO ID: [id number] Author: Dionicio Stevens Service: Vascular Surgery Author [...] questions or concerns Mon-Fri 6a-5p please page [phone]. After 5pm and on Weekends and Holidays, please page [phone] if in ICU or [phone] if on RNF. Subjective SUBJECTIVE: Febrile overnight [...] O2 Therapy: Ventilator IANDO: Date 01/12/18699 - 01/13/18 0659 01/13/18 07 - 01/14/18 0659 Shift 2233-0400 2967-9605 8354-4228 24 Hour Total 7468-8771 5882-5941 6786-2248 24 Hour Total I N T A K E IV 1600 5100 6700 IVPB 1600 50 1650 Potassium IVPB 300 300 LR 3000 3000 NORepinephrine Volume 200 200 ALBUMIN (mL) 1500 1500 MAGNESIUM SULFATE 50 50 Blood Products 7791 656 5409 PRBC Intake (mL) 900 900 Platelet mL [...] Noted - Ruptured abdominal aortic aneurysm (AAA) ([facility]) 01/12/2018 - DIC (disseminated intravascular coagulation) ([facility]) 01/12/2018 - Hemorrhagic shock ([facility]) 01/12/2018 - Acute respiratory failure ([facility]) 01/12/2018 - Cardiac arrest ([facility]) 01/12/2018 - Hypernatremia 01/12/2018 - Hypokalemia [...] MAGNESIUM BLOOD Collected: 01/13/2018 Status: F Source: [facility] 6:15 AM HEALTH SYSTEM REPOSITORY TYPE CODE TESTS RESULT OUT OF REFERENCE UNITS RANGE LAB MAG(LOINC) 1.6-2.6 mg/dL Low Magnesium Blood 1.3 Performed By: #### MAG #### [place] [address] CHEST 1 VIEW Observed: 01/13/2018 Status: F Source: [facility] 4:57 AM HEALTH SYSTEM REPOSITORY Performed at [facility] APPROVED BY: Yahir Grande MD EXAM TITLE: [...] likely. FIBRINOGEN Collected: 01/13/2018 Status: F Source: [facility] 4:55 HEALTH SYSTEM REPOSITORY TYPE CODE TESTS RESULT OUT OF REFERENCE UNITS RANGE LAB FIB(LOINC) 180-430 mg/dl Fibrinogen 255 Performed By: #### FIB #### [place] [address] PROTIME Collected: 01/13/2018 Status: F Source: [facility] 4:[facility] REPOSITORY TYPE CODE TESTS RESULT OUT OF REFERENCE UNITS RANGE LAB PTI(LOINC) 9.3-11.9 sec Prothrombin High Time 14.7 LAB INR(LOINC) INR 1.43 Result Comment: Standard Therapy 2.0-3.0 High Dose 2.5-3.5 Performed By: #### PT #### [place] [address] ACTIVATED PTT Collected: 01/13/2018 Status: F Source: [facility] 4:55 HEALTH SYSTEM REPOSITORY TYPE CODE TESTS RESULT OUT OF REFERENCE UNITS RANGE LAB APTT(LOINC 22.0-34.0 sec ) High Activated PTT 36.5 Performed By: #### APTT #### [place] [address] LACTIC ACID Collected: 01/13/2018 Status: F Source: [place] [address]:[address] [place] [address] SYSTEM REPOSITORY TYPE CODE TESTS RESULT OUT OF REFERENCE UNITS RANGE LAB LAC(LOINC) 0.4-2.0 mEq/L High alert Lactic Acid 6.4 Performed By: #### LAC #### [place] [address] PHOSPHORUS BLOOD Collected: 01/13/2018 Status: F Source: [address] [facility] SYSTEM REPOSITORY TYPE CODE TESTS RESULT OUT OF REFERENCE UNITS RANGE LAB PHOS(LOINC 2.5-4.9 mg/dL ) Phosphorus Blood 4.8 Performed By: #### PHOS #### [facility] [address] [place] [address] BASIC PANEL Collected: 01/13/2018 Status: F Source: [place] [address]:[facility] REPOSITORY TYPE CODE TESTS [...] Gap 16 Performed By: #### P8 #### [facility] [address] [place] [address] HEMOGRAM/DIFF Collected: 01/13/2018 Status: F Source: [address] [facility] SYSTEM REPOSITORY TYPE CODE TESTS [...] Lymph 0.82 LAB MONON(LOINC) 0.30-0.82 thou/cmm Abs. Hunt 0.30 LAB EOSN(LOINC) 0.04-0.54 thou/cmm Abs. Eosin 0.45 LAB BASON(LOINC) 0.01-0.08 thou/cmm Abs. Baso 0.03 Result Comment: Smear scanned; tech agrees with automated differential Performed By: #### CBCD1 #### [place] [address] BLOOD GAS ARTERIAL Collected: 01/12/2018 Status: F Source: [facility] 10:55 PM HEALTH SYSTEM REPOSITORY TYPE CODE [...] Excess -1.9 Performed By: #### ABG #### [place] [address] BASIC PANEL Collected: 01/12/2018 Status: F Source: [address] [facility] SYSTEM REPOSITORY TYPE CODE TESTS [...] Gap 14 Performed By: #### P8 #### [place] [address] LACTIC ACID Collected: 01/12/2018 Status: F Source: [address] [facility] SYSTEM REPOSITORY TYPE CODE TESTS RESULT OUT OF REFERENCE UNITS RANGE LAB LAC(LOINC) 0.4-2.0 mEq/L High alert Lactic Acid 6.8 Performed By: #### LAC #### [place] [address] HEMOGRAM Collected: 01/12/2018 Status: F Source: [address] [facility] SYSTEM REPOSITORY TYPE CODE TESTS [...] MPV 10.2 Performed By: #### CBC1 #### [place] [address] FIBRINOGEN Collected: 01/12/2018 Status: F Source: [address] [facility] REPOSITORY TYPE CODE TESTS RESULT OUT OF REFERENCE UNITS RANGE LAB FIB(LOINC) 180-430 mg/dl Fibrinogen 232 Performed By: #### FIB #### [place] [address] PROTIME Collected: 01/12/2018 Status: F Source: [address] [facility] REPOSITORY TYPE CODE TESTS RESULT OUT OF REFERENCE UNITS RANGE LAB PTI(LOINC) 9.3-11.9 sec Prothrombin High Time 13.8 LAB INR(LOINC) INR 1.41 Result Comment: Standard Therapy 2.0-3.0 High Dose 2.5-3.5 Performed By: #### PT #### [place] [address] ACTIVATED PTT Collected: 01/12/2018 Status: F Source: [address] [facility] SYSTEM REPOSITORY TYPE CODE TESTS RESULT OUT OF REFERENCE UNITS RANGE LAB APTT(LOINC 22.0-34.0 sec ) High Activated PTT 34.9 Performed By: #### APTT #### [place] [address] PROCALCITONIN Collected: 01/12/2018 Status: F Source: [address] [facility] REPOSITORY TYPE CODE TESTS [...] procalcitonin elevations. Performed By: #### PRCAS #### [place] [address] Observed: 01/12/2018 Status: F Source: [facility] 10:55 PM HEALTH SYSTEM RESPIRATORY REPOSITORY Test performed at [facility] No growth Few WBC No organisms seen Performed By: #### C_RES #### [place] [address] Observed: 01/12/2018 Status: F Source: [facility] 10:55 PM HEALTH SYSTEM REPOSITORY Test performed at [facility] No growth Performed By: #### C_BLO #### [place] [address] PROGRESS Observed: 01/12/2018 Status: COMPLETED Source: [place] 10:14 PM CLINIC OTHER CAMPUS REPOSITORY HNO ID: [id number] Author: Chente Whittaker Service: Critical Care Author [...] ANES POST Observed: 01/12/2018 Status: COMPLETED Source: [place] 6:52 PM [facility] OTHER CAMPUS REPOSITORY O ID: [id number] Author: Matt Teresa MD Service: Anesthesiology Author [...] 12, 2018 TIME: 6:52 PM PAGER/CONTACT #: [phone] BLOOD GAS ARTERIAL Collected: 01/12/2018 Status: F Source: [facility] 6:30 PM HEALTH SYSTEM REPOSITORY TYPE CODE [...] Excess -4.0 Performed By: #### ABG #### [place] [address] IONIZED CALCIUM Collected: 01/12/2018 Status: F Source: [facility] 6:30 PM HEALTH SYSTEM REPOSITORY TYPE CODE TESTS RESULT OUT OF REFERENCE UNITS RANGE LAB CAION(LOINC 4.43-4.93 mg/dL ) Ionized 4.43 Calcium LAB PHCAI(LOINC 7.320-7.420 ) pH 7.362 LAB CAPH(LOINC) 4.36-4.73 mg/dL Low Ionized 4.35 Ca,PH7.4 Performed By: #### IONCA #### [place] [address] FIBRINOGEN Collected: 01/12/2018 Status: F Source: [facility] 6:30 HEALTH SYSTEM REPOSITORY TYPE CODE TESTS RESULT OUT OF REFERENCE UNITS RANGE LAB FIB(LOINC) 180-430 mg/dl Fibrinogen 241 Performed By: #### FIB #### [address] [address] HEMOGRAM Collected: 01/12/2018 Status: F Source: [facility] 6:30 PM HEALTH SYSTEM REPOSITORY TYPE CODE [...] MPV 10.1 Performed By: #### CBC1 #### [place] [address] LACTIC ACID Collected: 01/12/2018 Status: F Source: [facility] 6:30 PM HEALTH SYSTEM REPOSITORY TYPE CODE TESTS RESULT OUT OF REFERENCE UNITS RANGE LAB LAC(LOINC) 0.4-2.0 mEq/L High alert Lactic Acid 6.7 Performed By: #### LAC #### [place] [address] BASIC PANEL Collected: 01/12/2018 Status: F Source: [facility] 4:45 PM HEALTH SYSTEM REPOSITORY TYPE CODE [...] Gap 14 Performed By: #### P8 #### [facility] [address] [place] [address] PHERESED PLATELETS Collected: 01/12/2018 Status: F Source: [facility] 4:31 PM HEALTH SYSTEM REPOSITORY TYPE CODE TESTS RESULT OUT OF REFERENCE UNITS RANGE LAB PPHR(LOINC) Pheresed Plts Done unit 1 Performed By: #### PPHRS #### [facility] [address] [place] [address] CONSULT PROG Observed: 01/12/2018 Status: COMPLETED Source: [place] 1:48 PM CLINIC OTHER CAMPUS REPOSITORY HNO ID: [id number] Author: Elder Yu) Kalee Service: Critical Care [...] 18 Gauge -- days Peripheral Admission to [facility] Right Hand 22 Gauge -- days [...] Invasive Ventilator Mode: Pressure Regulated Volume Control (01/12/181128) Set Ventilator Respiratory Rate (BPM): 14 (01/12/181128) Total Respiratory Rate (BPM): 14 (01/12/181128) Tidal [...] PMH of AAA who was transferred to [facility] in shock 2/2 ruptured AAA c/b [...] ALLIED HEALTH Observed: 01/12/2018 Status: COMPLETED Source: [place] 12:00 PM [facility] OTHER CAMPUS REPOSITORY [facility] ID: [id number] Author: Chaplain Serna (Chaplain) Service: Spiritual Care Author Type: Crack Off Person Type: Allied Health Filed: 01/12/2018 1:51 PM Note Text: SPIRITUALCARE Spiritual Care Visit- Brief Note Name: Naveen Akins Date: January 12, 2018 Notes: Met pt's fam in 3d floor [place] and,at their request, prayed with them. Will add pt to prayer list as well. Previous reconciliation specialist asked me to check in with them. Let them know I'd be here all day and reminded them of 27/12 reconciliation specialist availability. Will continue to follow as needed. Crack Off Person Signature: Chaplain Daphne To contact the Spiritual Care Department: Please call [phone] or Page the On-Call at pager [phone] Thank you for the opportunity to be of service. This is an electronically created document. IF PRINTED, PLEASE DO NOT REMOVE FROM THE CHART OR MODIFY PRINTED COPY. BLOOD GAS ARTERIAL Collected: 01/12/2018 Status: F Source: [facility] 11:40 AM HEALTH SYSTEM REPOSITORY TYPE CODE [...] Not Given Performed By: #### ABG #### [place] [address] BASIC PANEL Collected: 01/12/2018 Status: F Source: [facility] 11:40 HEALTH SYSTEM REPOSITORY TYPE CODE TESTS [...] Gap 12 Performed By: #### P8 #### [place] [address] HEMOGRAM Collected: 01/12/2018 Status: F Source: [facility] 11:40 AM HEALTH SYSTEM REPOSITORY TYPE CODE [...] MPV 9.7 Performed By: #### CBC1 #### [place] [address] PROTIME Collected: 01/12/2018 Status: F Source: [facility] 11:40 HEALTH SYSTEM REPOSITORY TYPE CODE TESTS RESULT OUT OF REFERENCE UNITS RANGE LAB PTI(LOINC) 9.3-11.9 sec Prothrombin High Time 13.3 LAB INR(LOINC) INR 1.29 Result Comment: Standard Therapy 2.0-3.0 High Dose 2.5-3.5 Performed By: #### PT #### [place] [address] ACTIVATED PTT Collected: 01/12/2018 Status: F Source: [facility] 11:40 HEALTH SYSTEM REPOSITORY TYPE CODE TESTS RESULT OUT OF REFERENCE UNITS RANGE LAB APTT(LOINC 22.0-34.0 sec ) Activated PTT 32.9 Performed By: #### APTT #### [place] [address] BRIEF OP NOT Observed: 01/12/2018 Status: COMPLETED Source: [place] 11:22 AM CLINIC OTHER CAMPUS REPOSITORY HNO ID: [id number] Author: Dionicio Stevens Service: Vascular Surgery Author Type: Resident Type: Brief Op Note Filed: 01/12/2018 11:29 AM Note Text: BRIEF OPERATIVE / PROCEDURE NOTE LOG ID: [id number] SURGERY/PROCEDURE DATE: 01/12/2018 INCISION/PROCEDURE START TIME: 8:34 AM INCISION CLOSE/PROCEDURE END TIME: 11:05 AM SURGEON(S)/PROCEDURALIST(S) AND REGISTERED ROUTE ASSOCIATE(S): Surgeon(s) and Role: * Venkat Paniagua - Primary * Dionicio Stevens - Resident - Assisting * Araceli Reynaga - Assisting Physician Mutuel Department Manager: Hailey Norris (Pa) SURGERY/PROCEDURE(S): Second Look Laparotomy, [...] ESTIMATED BLOOD LOSS: unmeasurable amount, estimated near [id number] SPECIMENS: None COMPLICATIONS: None PRE-OP/PRE-PROCEDURE DIAGNOSIS: Open Abdomen, s/o AAA Repair, Coagulopathy, Hemorrhagic Shock POST-OP/POST-PROCEDURE DIAGNOSIS: BLEEDING IN COAGULOPATHIC PATIENT, NO SPECIFIC BLEEDING SITE IDENTIFIED, DIFFUSE COAGULOPATHIC BLEEDING Same SIGNATURE: Dionicio Stevens MD PATIENT NAME: Naveen Akins DATE: January 12, 2018 TIME: 11:22 AM PAGER/CONTACT #: [email or web address] PREOP Observed: 01/12/2018 Status: COMPLETED Source: [place] 10:25 AM [facility] OTHER CAMPUS REPOSITORY O ID: [id number] Author: Moy Quinones Service: Anesthesiology Author Type: Physician Type: Anesthesia PreOp Filed: 01/12/2018 10:28 AM Note Text: ANESTHESIOLOGY DAY OF SURGERY NOTE SERVICE DATE: 01/12/2018 SERVICE TIME: 10:25 AM : 1940 Procedure(s) (LRB): REPAIR RUPTURED ANEURYSM, ABDOMINAL AORTA WITH PATCH GRAFT (N/A) Surgeon(s): Venkat Reynaga There is no height or weight [...] January 12, 2018 TIME: 10:25 AM CSN: [id number] BLOOD GAS ARTERIAL Collected: 01/12/2018 Status: F Source: [address] SYSTEM REPOSITORY TYPE CODE TESTS RESULT [...] Saturation 99.5 Performed By: #### ABGCS #### [place] [address] HEMOGLOBIN CSL Collected: 01/12/2018 Status: F Source: [address] SYSTEM REPOSITORY TYPE CODE TESTS RESULT OUT OF REFERENCE UNITS RANGE LAB HGBCS(LOIN 14.0-18.0 g/dL C) Low Hemoglobin CSL 10.0 Performed By: #### HGBCS #### [place] [address] HEMATOCRIT CSL Collected: 01/12/2018 Status: F Source: [address] SYSTEM REPOSITORY TYPE CODE TESTS RESULT OUT OF REFERENCE UNITS RANGE LAB HCTCS(LOIN 42.0-52.0 % C) Low Hematocrit CSL 29.9 Performed By: #### HCTCS #### [place] [address] POTASSIUM CSL Collected: 01/12/2018 Status: F Source: [address] SYSTEM REPOSITORY TYPE CODE TESTS RESULT OUT OF REFERENCE UNITS RANGE LAB KCSL(LOINC 3.5-5.0 mEq/L ) Low Potassium CSL 2.9 Performed By: #### KCSL #### [place] [address] IONIZED CALCIUM CSL Collected: 01/12/2018 Status: F Source: [address] SYSTEM REPOSITORY TYPE CODE TESTS RESULT OUT OF RANGE REFERENCE UNITS LAB CALC(LOINC) 4.43-4.93 mg/dL CA++ CSL 4.69 LAB CA@PH(LOINC 4.36-4.73 mg/dL ) CA++ at 4.54 PH 7.4 LAB PHICA(LOINC 7.350-7.450 ) Low pH 7.335 Performed By: #### CACSL #### [place] [address] PLATELET Collected: 01/12/2018 Status: F Source: [address] SYSTEM REPOSITORY TYPE CODE TESTS RESULT OUT OF REFERENCE UNITS RANGE LAB PLTI(LOINC) 141-365 thou/cmm Low Platelet 59 Performed By: #### PLTI #### [place] [address] PROTIME Collected: 01/12/2018 Status: F Source: [address] SYSTEM REPOSITORY TYPE CODE TESTS RESULT OUT OF REFERENCE UNITS RANGE LAB PTI(LOINC) 9.3-11.9 sec Prothrombin High Time 14.5 LAB INR(LOINC) INR 1.45 Result Comment: Standard Therapy 2.0-3.0 High Dose 2.5-3.5 Performed By: #### PT #### [place] [address] ACTIVATED PTT Collected: 01/12/2018 Status: F Source: [address] SYSTEM REPOSITORY TYPE CODE TESTS RESULT OUT OF REFERENCE UNITS RANGE LAB APTT(LOINC 22.0-34.0 sec ) High Activated PTT 40.2 Performed By: #### APTT #### [place] [address] D-DIMER QUANTITATIVE Collected: 01/12/2018 Status: F Source: [address] SYSTEM REPOSITORY TYPE CODE TESTS RESULT OUT OF RANGE REFERENCE UNITS LAB DDMRQ(LOINC <500 ng/ml(FEU) ) High alert D-Dimer, 53357 Quant. Result Comment: The cutoff level recommended for the exclusion of deep vein thrombosis (DVT) or pulmonary embolism (PE) is 500 ng/mL(FEU). It is recommended that DVT or PE exclusion be restricted to suspected outpatients with a low to moderate pretest probability model. Performed By: #### DDMRN #### [place] [address] FIBRINOGEN Collected: 01/12/2018 Status: F Source: [facility] 10:05 AM HEALTH SYSTEM REPOSITORY TYPE CODE TESTS RESULT OUT OF REFERENCE UNITS RANGE LAB FIB(LOINC) 180-430 mg/dl Fibrinogen 220 Performed By: #### FIB #### [place] [address] SCHISTOCYTE SCAN Collected: 01/12/2018 Status: F Source: [facility] 10:05 AM HEALTH SYSTEM REPOSITORY TYPE CODE TESTS RESULT OUT OF REFERENCE UNITS RANGE LAB SCHIS(LOIN None C) Schistocyte Scan None Performed By: #### SCHIS #### [place] [address] FSP Collected: 01/12/2018 Status: F Source: [facility] 10:05 AM HEALTH SYSTEM REPOSITORY TYPE CODE TESTS RESULT OUT OF RANGE REFERENCE UNITS LAB FSP(LOINC) <10 ug/ml Abnormal FSP >20<30 Performed By: #### FSP #### [place] [address] PHERESED PLATELETS Collected: 01/12/2018 Status: F Source: [facility] 9:47 AM HEALTH SYSTEM REPOSITORY TYPE CODE TESTS RESULT OUT OF REFERENCE UNITS RANGE LAB PPHR(LOINC) Pheresed Plts Done unit 1 Performed By: #### PPHRS #### [place] [address] HISTORY PHYSICAL Observed: 01/12/2018 Status: COMPLETED Source: [place] 9:41 AM [facility] [place] REPOSITORY HNO ID: [id number] Author: John TylerRn) Bernard RN Service: Nursing Author Type: Registered Nurse Type: HANDP Filed: 01/12/2018 9:42 AM Note Text: Family updated at this time on case status NURSING PROG Observed: 01/12/2018 Status: COMPLETED Source: [place] 8:26 AM [facility] [place] REPOSITORY HNO ID: [id number] Author: Jose TylerRn) MAGALY Jasso Service: Nursing Author Type: Registered [...] 5 PACK Collected: 01/12/2018 Status: F Source: [place] 8:23 AM [facility] REPOSITORY TYPE CODE TESTS RESULT OUT OF REFERENCE UNITS RANGE LAB CRY1S(LOIN C) Cryoprecipitate 5-Pk x1 Done Performed By: #### CRY5S #### [place] [address] PROGRESS Observed: 01/12/2018 Status: COMPLETED Source: [place] 7:56 AM [facility] REPOSITORY HNO ID: [id number] Author: Dionicio Stevens Service: Vascular Surgery Author [...] OR now. Dionicio Stevens MD PGY-4 Pager: [phone] 01/12/2018, 8:02 AM HGB Collected: 01/12/2018 Status: F Source: [facility] 7:15 AM HEALTH SYSTEM REPOSITORY TYPE CODE TESTS RESULT OUT OF RANGE REFERENCE UNITS LAB HGBI(LOINC) 13.7-17.5 g/dL Low Hgb 12.2 Performed By: #### HGBI #### [place] [address] HCT Collected: 01/12/2018 Status: F Source: [facility] 7:15 AM HEALTH SYSTEM REPOSITORY TYPE CODE TESTS RESULT OUT OF RANGE REFERENCE UNITS LAB HCTI(LOINC) 40.1-51.0 % Low Hct 35.7 Performed By: #### HCTI #### [place] [address] BLOOD GAS ARTERIAL Collected: 01/12/2018 Status: F Source: [facility] 7:15 AM HEALTH SYSTEM REPOSITORY TYPE CODE [...] Not Given Performed By: #### ABG #### [facility] [address] [place] [address] PROTIME Collected: 01/12/2018 Status: F Source: [facility] 7:15 AM HEALTH SYSTEM REPOSITORY TYPE CODE TESTS RESULT OUT OF REFERENCE UNITS RANGE LAB PTI(LOINC) 9.3-11.9 sec Prothrombin High Time 13.9 LAB INR(LOINC) INR 1.40 Result Comment: Standard Therapy 2.0-3.0 High Dose 2.5-3.5 Performed By: #### PT #### [facility] [address] [place] [address] ACTIVATED PTT Collected: 01/12/2018 Status: F Source: [facility] 7:15 HEALTH SYSTEM REPOSITORY TYPE CODE TESTS RESULT OUT OF REFERENCE UNITS RANGE LAB APTT(LOINC 22.0-34.0 sec ) High Activated PTT 35.1 Performed By: #### APTT #### [facility] [address] [place] [address] CHEST 1 VIEW Observed: 01/12/2018 Status: F Source: [facility] 6:51 AM HEALTH SYSTEM REPOSITORY Performed at [facility] APPROVED BY: AIMEE FORREST MD TECHNIQUE: CHEST [...] change PROGRESS Observed: 01/12/2018 Status: COMPLETED Source: [place] 6:21 AM CLINIC OTHER CAMPUS REPOSITORY HNO ID: [id number] Author: Dionicio (Edenilson) Rodney Service: Vascular Surgery [...] questions or concerns Mon-Fri 6a-5p please page [phone]. After 5pm and on Weekends and Holidays, please page [phone] if in ICU or [phone] if on RNF. Subjective SUBJECTIVE: Emergent Aortic repair overnight Diet: DIET NPO Objective OBJECTIVE: Vitals: No data recorded. Pulse 102 SpO2 90% O2 Therapy: Ventilator IANDO: Date 01/11/18699 - 01/12/18658(Not Admitted) 01/12/18 07 - 08/10/18 0659 Shift 4840-6026 1754-9592 7741-6193 24 Hour Total 1560-7304 5339-4950 7128-7066 24 Hour Total I N T A [...] RNF. PROGRESS Observed: 01/12/2018 Status: COMPLETED Source: [place] 6:15 AM [facility] OTHER CAMPUS REPOSITORY HNO ID: [id number] Author: Ekaterina Mckeon Service: Pulmonary Disease Author [...] 77 year old man emergently transferred to [facility] from [place] for a ruptured abdominal aortic aneurysm. He had a systolic blood pressure in the 60's at [place] which fell to the 50's en route with eventual arrest before arrival at [facility]. He was receiving CPR at the [...] 43.3 38.7 37.0 57.1* 32.8* 44.3 33.1* F1SIQLGW 95.8 96.9 99.1* 99.8* 99.8* 99.7* 99.4* 99.4* CBC: Recent Labs 01/12/18 0140 HB 5.2* HCT 16.8* COAG: Recent Labs 01/12/18 041 APTT 82.2* INR 1.56 CHEM: Recent Labs [...] services: 40 minutes. SIGNATURE: Ekaterina Mckeon MD [facility] PAGER:[phone] DATE of SERVICE: January 12, 2018 TIME of SERVICE: 6:15 AM BRIEF OP NOT Observed: 01/12/2018 Status: COMPLETED Source: [place] 6:04 AM [facility] REPOSITORY O ID: [id number] Author: Veknat Paniagua Service: Vascular Surgery Author Type: Physician Type: Brief Op Note Filed: 01/15/2018 12:23 PM Note Text: BRIEF OPERATIVE / PROCEDURE NOTE LOG ID: [id number] Patient Name:Naveen Akins CSN: [id number] Surgery/Procedure Date: 01/12/2018 Incision/Procedure Start Time: 12:50 AM Incision Close/Procedure End Time: 5:06 AM Surgeon(s)/Proceduralist(s) and Mutuel Department Manager(s): Surgeon(s) and Role: * Venkat Paniagua - Primary * Emilie Peralta - Resident - Assisting Digital Technician: Hailey Dixon SA Procedure(s): Procedure(s) (LRB): REPAIR [...] 12, 2018 TIME: 6:04 AM PAGER/CONTACT #: [phone] EKG Observed: 01/12/2018 Status: F Source: [place] 5:34 AM [facility] REPOSITORY NAME : NAVEEN AKINS PID : [id number] : 1940 Gender : Male Race : ORD : Procedure Date : Jan 12 2018 05:34 Edit Date : Jan 12 2018 07:57 Diagnosis:NORMAL SINUS RHYTHM RSR' OR QR PATTERN IN V1 SUGGESTS RIGHT VENTRICULAR CONDUCTION DELAY NONSPECIFIC T WAVE ABNORMALITY PROLONGED QT ABNORMAL ECG NO PREVIOUS ECGS AVAILABLE Confirmed by MD Endy, Frederick ([id number]) on 01/12/2018 7:57:48 AM Ventricular Rate : 100 BPM Atrial Rate : 100 BPM P-R Interval : 132 ms QRS Duration : 80 ms Q-T Interval : 430 ms QTC Calculation(Bezet) : 554 ms P Dobson : 14 degrees R Dobson : -26 degrees T Dobson : 85 degrees Test Reason : Location : 3 : [place] [address] Overread By : MD Schumacher Anubhav Editted By : MD Schumacher Anubhav Referred By : , Acquired by : Betsey Scott PREOP Observed: 01/12/2018 Status: COMPLETED Source: [place] 5:26 AM CLINIC OTHER CAMPUS REPOSITORY O ID: [id number] Author: Jack Lam Service: Anesthesiology Author Type: [...] thrombin topical solution X (OR/PROCEDURE) PRN Venkat Genaro Paniagua 20,000 Units at 01/12/18 0359 NaCl [...] January 12, 2018 TIME: 5:26 AM CSN: [id number] BLOOD GAS ARTERIAL Collected: 01/12/2018 Status: F Source: [facility] 5:09 AM HEALTH SYSTEM REPOSITORY TYPE CODE [...] Saturation 95.8 Performed By: #### ABGCS #### [address] [address] HEMOGLOBIN CSL Collected: 01/12/2018 Status: F Source: [facility] 5:09 AM [facility] REPOSITORY TYPE CODE TESTS RESULT OUT OF REFERENCE UNITS RANGE LAB HGBCS(LOIN 14.0-18.0 g/dL C) Low Hemoglobin CSL 10.1 Result Comment: RESULT RECHECKED CORRECTED: Previous result = 10.5, verified at 04:24 on 01/12/18. Performed By: #### HGBCS #### [address] [address] HEMATOCRIT CSL Collected: 01/12/2018 Status: F Source: [facility] 5:09 HEALTH SYSTEM REPOSITORY TYPE CODE TESTS RESULT OUT OF REFERENCE UNITS RANGE LAB HCTCS(LOIN 42.0-52.0 % C) Low Hematocrit CSL 30.3 Performed By: #### HCTCS #### [address] [address] SODIUM CSL Collected: 01/12/2018 Status: F Source: [facility] 5:09 AM HEALTH SYSTEM REPOSITORY TYPE CODE TESTS RESULT OUT OF REFERENCE UNITS RANGE LAB NACSL(LOINC 136-145 mEq/L ) High Sodium CSL 152 Performed By: #### NACSL #### [place] [address] POTASSIUM CSL Collected: 01/12/2018 Status: F Source: [facility] 5:09 AM HEALTH SYSTEM REPOSITORY TYPE CODE TESTS RESULT OUT OF REFERENCE UNITS RANGE LAB KCSL(LOINC 3.5-5.0 mEq/L ) Potassium CSL 3.9 Performed By: #### KCSL #### [place] [address] GLUCOSE CSL Collected: 01/12/2018 Status: F Source: [facility] 5:09 AM HEALTH SYSTEM REPOSITORY TYPE CODE TESTS RESULT OUT OF REFERENCE UNITS RANGE LAB GLUCS(LOINC 70-99 mg/dL ) High Glucose CSL 193 Performed By: #### GLUCS #### [place] [address] FROZEN PLASMA Collected: 01/12/2018 Status: F Source: [facility] (THAWED PLASMA) 5:07 AM HEALTH SYSTEM REPOSITORY TYPE CODE TESTS RESULT OUT OF RANGE REFERENCE UNITS LAB FFP1(LOINC) FFP unit Done 1 LAB FFP2(LOINC) FFP unit Done 2 LAB FFP3(LOINC) FFP unit Done 3 LAB FFP4(LOINC) FFP unit Done 4 LAB FFP5(LOINC) FFP unit Done 5 Performed By: #### FFPXS #### [place] [address] FIBRINOGEN Collected: 01/12/2018 Status: F Source: [facility] 5:02 AM HEALTH SYSTEM REPOSITORY TYPE CODE TESTS RESULT OUT OF REFERENCE UNITS RANGE LAB FIB(LOINC) 180-430 mg/dl Fibrinogen 234 Performed By: #### FIB #### [place] [address] PLATELET Collected: 01/12/2018 Status: F Source: [facility] 5:02 AM HEALTH SYSTEM REPOSITORY TYPE CODE TESTS RESULT OUT OF REFERENCE UNITS RANGE LAB PLTI(LOINC) 141-365 thou/cmm Low Platelet 82 Result Comment: Smear scanned tech agrees with platelet count Performed By: #### PLTI #### [place] [address] NURSING PROG Observed: 01/12/2018 Status: COMPLETED Source: [place] 4:58 AM [facility] REPOSITORY HNO ID: [id number] Author: Tim TylerRn) MAGALY Bruner Service: Nursing Author Type: Registered Nurse Type: Nursing Progress Note Filed: 01/12/2018 5:02 AM Note Text: At approximately 0040 MN emergently entered into OR 10, CPR was being done during this time. CPR continued being performed as the case was starting, in total chest compressions were performed for approximately 15 minutes. PROGRESS Observed: 01/12/2018 Status: COMPLETED Source: [place] 4:43 AM [facility] REPOSITORY HNO ID: [id number] Author: Tim TylerRn) MAGALY Bruner Service: Nursing Author Type: Registered Nurse Type: Progress Notes Filed: 01/12/2018 4:44 AM Note Text: Patient abdomen retaining 4 lap sponges as surgical packing. X-ray to be take at later time. NURSING PROG Observed: 01/12/2018 Status: COMPLETED Source: [place] 4:41 AM [facility] REPOSITORY HNO ID: [id number] Author: Tim TylerRn) MAGALY Bruner Service: Nursing Author Type: Registered Nurse Type: Nursing Progress Note Filed: 01/12/2018 4:43 AM Note Text: Due to the emergent nature of the case an initial surgical count was not done. NURSING PROG Observed: 01/12/2018 Status: COMPLETED Source: [place] 4:34 AM [facility] REPOSITORY HNO ID: [id number] Author: Tim Garcia) MAGALY Bruner Service: Nursing Author Type: Registered Nurse Type: Nursing Progress Note Filed: 01/12/2018 4:41 AM Note Text: Per Dr. Paniagua no chest x-ray is going to be taken due to patient retaining lap sponges as surgical packing. SCHISTOCYTE SCAN Collected: 01/12/2018 Status: F Source: [facility] 4:13 AM HEALTH SYSTEM REPOSITORY TYPE CODE TESTS RESULT OUT OF REFERENCE UNITS RANGE LAB SCHIS(LOIN None C) Schistocyte Scan None Performed By: #### SCHIS #### [facility] [address] [place] [address] PROTIME/APTT Collected: 01/12/2018 Status: F Source: [facility] 4:13 AM HEALTH SYSTEM REPOSITORY TYPE CODE TESTS RESULT OUT OF REFERENCE UNITS RANGE LAB PTI(LOINC) 9.3-11.9 sec Prothrombin High Time 15.5 LAB INR(LOINC) INR 1.56 Result Comment: Standard Therapy 2.0-3.0 High Dose 2.5-3.5 LAB APTT(LOINC) 22.0-34.0 sec High alert Activated PTT 82.2 Performed By: #### PTPTT #### [place] [address] D-DIMER QUANTITATIVE Collected: 01/12/2018 Status: F Source: [facility] 4:13 AM HEALTH SYSTEM REPOSITORY TYPE CODE TESTS RESULT OUT OF RANGE REFERENCE UNITS LAB DDMRQ(LOINC <500 ng/ml(FEU) ) High alert D-Dimer, >65179 Quant. Result Comment: The cutoff level recommended for the exclusion of deep vein thrombosis (DVT) or pulmonary embolism (PE) is 500 ng/mL(FEU). It is recommended that DVT or PE exclusion be restricted to suspected outpatients with a low to moderate pretest probability model. Performed By: #### DDMRN #### [place] [address] RAPID HIV AB. Collected: 01/12/2018 Status: F Source: [facility] 3:35 AM HEALTH SYSTEM REPOSITORY TYPE CODE [...] HIV-1 infection. Performed By: #### RHIV #### [place] [address] HEP. B SURFACE AG Collected: 01/12/2018 Status: F Source: [facility] 3:35 AM HEALTH SYSTEM REPOSITORY TYPE CODE TESTS RESULT OUT OF REFERENCE UNITS RANGE LAB HBSA(LOINC Negative ) Hep.B Surface Negative Ag Performed By: #### HBSAG #### [place] [address] HIV SCREEN Collected: 01/12/2018 Status: F Source: [facility] 3:35 AM HEALTH SYSTEM REPOSITORY TYPE CODE TESTS RESULT OUT OF REFERENCE UNITS RANGE LAB 3HIV(LOINC Nonreactive ) HIV Negative Screen Performed By: #### 3HIV #### [facility] [address] [place] [address] HEPATITIS C ANTIBODY Collected: 01/12/2018 Status: F Source: [facility] 3:35 AM HEALTH SYSTEM REPOSITORY TYPE CODE TESTS RESULT OUT OF REFERENCE UNITS RANGE LAB HCV(LOINC) Negative Hepatitis C Ab Negative Performed By: #### HCVAB #### [facility] [address] [place] [address] HEP. B CORE AB IGM Collected: 01/12/2018 Status: F Source: [facility] 3:35 AM HEALTH SYSTEM REPOSITORY TYPE CODE TESTS RESULT OUT OF REFERENCE UNITS RANGE LAB HBCO(LOINC) Negative HB Core Negative Ab IgM Performed By: #### HBCOR #### [place] [address] EMERGENCY DEPARTMENT Observed: 01/12/2018 Status: F Source: [place] SUMMARY 2:55 AM [facility] REPOSITORY [facility] Medical Records Department [address] [place] [address] Emergency Department Summary 01/11/18 2313 MR#: [id number] Acct: [id number] Name: NAVEEN AKINS Rep #: [id number] : 1940 77 From: Kathy Dill PCP: Honorio LOREDO,Jack Status: DEP ER - ER Visit Summary [...] I did speak with the family requested [facility]. I spoke with [facility] vascular surgeon Dr. Paniagua who accepted [...] was transfused 4 units. We did contact [employer] who said that they were not flying at that time [facility] was contacted and agreed to transport via flight. Patient's blood pressure remained in the 50's-70s during this time.] Treatment Plan: [] Disposition: [Transfer] Impression: [Ruptured aortic aneurysm] This note was generated with [employer] dictation software. It may contain incorrect words, spelling, and punctuation that were not noted in review of the chart prior to signing ED Disposition - Plan for ED Patient: Disposition: [facility][1] Chief Complaint: Syncope Referrals: Jack Olmedo MD [Primary Care Provider] - What to do if you have Problems For any increased pain, shortness of breath, bleeding, nausea or vomiting, chest pain, or any unexpected problems, contact your Primary Care Provider. Call [facility] ([phone]) or report to the closest Emergency Room. Call 911 if necessary. 01/12/18 0255 <Electronically signed by Kathy Dill > Date Kathy Ta Martinezigner Signature (If Indicated): Date CC: Jack Olmedo MD IONIZED CALCIUM CSL Collected: 01/12/2018 Status: F Source: [facility] 2:11 AM HEALTH SYSTEM REPOSITORY TYPE CODE [...] on 01/12/18. Performed By: #### CACSL #### [place] [address] BLOOD GAS ARTERIAL Collected: 01/12/2018 Status: F Source: [facility] 1:50 AM HEALTH SYSTEM REPOSITORY TYPE CODE [...] Not Given Performed By: #### ABG #### [place] [id number] BLD GAS ART AND Collected: 01/12/2018 Status: F Source: [facility] [place] 1:43 AM HEALTH SYSTEM REPOSITORY TYPE CODE [...] Not Given Performed By: #### ABGIG #### [place] [address] HGB Collected: 01/12/2018 Status: F Source: [facility] 1:40 AM HEALTH SYSTEM REPOSITORY TYPE CODE TESTS RESULT OUT OF RANGE REFERENCE UNITS LAB HGBI(LOINC) 13.7-17.5 g/dL Low alert Hgb 5.2 Performed By: #### HGBI #### [place] [address] HCT Collected: 01/12/2018 Status: F Source: [facility] 1:40 AM HEALTH SYSTEM REPOSITORY TYPE CODE TESTS RESULT OUT OF RANGE REFERENCE UNITS LAB HCTI(LOINC) 40.1-51.0 % Low alert Hct 16.8 Performed By: #### HCTI #### [place] [address] PHERESED PLATELETS Collected: 01/12/2018 Status: F Source: [facility] 1:40 AM HEALTH SYSTEM REPOSITORY TYPE CODE TESTS RESULT OUT OF REFERENCE UNITS RANGE LAB PPHR(LOINC) Pheresed Plts Done unit 1 Performed By: #### PPHRS #### [address] [address] HISTORY PHYSICAL Observed: 01/12/2018 Status: COMPLETED Source: [place] 1:21 AM [facility] OTHER CAMPUS REPOSITORY O ID: [id number] Author: Manuela Gutierrez Service: Vascular Surgery Author [...] old male transferred in critical condition from [facility] with diagnosed ruptured AAA. Patient was life-flighted to [facility]. Intubated at outside facility. Per EMS, [...] #: [id number] Observed: 01/12/2018 Status: COMPLETED Source: [place] 12:00 AM CLINIC OTHER CAMPUS REPOSITORY Patient:Naveen Akins MRN: <[id number]> Height:5' 8(1.727 m) Weight:181 lb 3.5 oz [...] pancreatitis [K85.10] Ruptured abdominal aortic aneurysm (AAA) ([facility]) [I71.3] DIC (disseminated intravascular coagulation) ([facility]) [D65] Hemorrhagic shock ([facility]) [R57.8] Acute respiratory failure ([facility]) [J96.00] Cardiac arrest ([facility]) [I46.9] Hypernatremia [E87.0] Hypokalemia [E87.6] Hypomagnesemia [E83.42] Hypophosphatemia [E83.39] Hyperchloremia [E87.8] Encephalopathy [G93.40] AAA (abdominal aortic aneurysm, ruptured) ([facility]) [I71.3] Obesity, Class I, BMI 30-34.9 [E66.9] Allergies: No Known Allergies Date Verified:01/27/18 Lab Values Lab Value Units Date High Low POTA* 3.9 mEq/L 01/27/2018 5.1 3.5 MACIEL* 29.4 % 01/27/2018 51.0 40.1 Progress Notes (): Venkat Paniagua MD 01/15/2018 12:16 PM Signed [facility] - Operative Report SURGEON: Venkat Paniagua MD PATIENT NAME: NAVEEN AKINS [facility]: [id number] DATE OF SURGERY: 01/12/2018 DATE OF : 1940 SEX/AGE: M/77 PATIENT TYPE: I HOSP SVC: LICO LOCATION: [id number] DATE OF SURGERY: 01/12/2018 SURGEON: Venkat Paniagua MD PREOPERATIVE DIAGNOSES: Ruptured abdominal aortic aneurysm, preoperative cardiac arrest. POSTOPERATIVE DIAGNOSES: Ruptured abdominal aortic aneurysm, preoperative cardiac arrest. PROCEDURE: Cardiopulmonary resuscitation, repair of ruptured abdominal aortic aneurysm using an 18 mm x 9 mm Hemashield graft, application of ABThera device. REGISTERED ROUTE ASSOCIATE: Dr. Peralta; Meaghan Dixon SA. ANESTHESIA: General. HISTORY: This patient, we were notified of about 45 minutes ago when he was at [place] [facility], found to be hypotensive and [...] transfusion protocol being performed. He had a Real infuser, infusing large amounts of blood. He [...] future. Venkat Paniagua MD Vascular Surgery DJW:[email or web address] /[id number] Venkat Paniagua MD 01/15/2018 12:18 PM Signed [facility] - Operative Report SURGEON: Venkat Paniagua MD PATIENT NAME: NAVEEN AKINS CSN: [id number] DATE OF SURGERY: 01/12/2018 DATE OF : 1940 SEX/AGE: M/77 PATIENT TYPE: I HOSP SVC: LICO LOCATION: [facility] 01/12/2018 SURGEON: Venkat Paniagua MD PREOPERATIVE DIAGNOSES: [...] monitoring. Venkat Paniagua MD Vascular Surgery DENA:mika /[id number] Manuela Gutierrez MD 01/12/2018 6:46 AM Attested [...] old male transferred in critical condition from [facility] with diagnosed ruptured AAA. Patient was life-flighted to [facility]. Intubated at outside facility. Per EMS, [...] 01/12/2018 5:02 AM Signed At approximately 0040 [place] emergently entered into OR 10, CPR was being done during this time. CPR continued being performed as the case was starting, in total chest compressions were performed for approximately 15 minutes. Jack Lam MD 01/12/2018 5:28 AM Signed ANESTHESIOLOGY DAY OF SURGERY NOTE SERVICE DATE: 01/12/2018 SERVICE TIME: 12:26 AM : 1940 Procedure(s) (LRB): REPAIR ANEURYSM AORTIC ABDOMINAL (N/A) Surgeon(s): Venkat Phan (Luther Peralta There is no height or weight on [...] 0429 heparin 1,000 unit/mL injection X (OR/PROCEDURE) PRVazquez Paniagua 500 mL at 01/12/18 0230 insulin [...] at 01/12/18 0504 heparin injection X (OR/PROCEDURE) PRVazquez Paniagua 30,000 Units at 01/12/18 0506 Allergies: [...] January 12, 2018 TIME: 5:26 AM CSN: [id number] Venkat Paniagua MD 01/15/2018 12:23 PM Signed BRIEF OPERATIVE / PROCEDURE NOTE LOG ID: [id number] Patient Name:Naveen Akins CSN: [id number] Surgery/Procedure Date: 01/12/2018 Incision/Procedure Start Time: 12:50 AM Incision Close/Procedure End Time: 5:06 AM Surgeon(s)/Proceduralist(s) and Mutuel Department Manager(s): Surgeon(s) and Role: * Venkat Paniagua - Primary * Emilie Peralta - Resident - Assisting Digital Technician: Hailey Dixon SA Procedure(s): Procedure(s) (LRB): REPAIR [...] 12, 2018 TIME: 6:04 AM PAGER/CONTACT #: [phone] Previous Version Ekaetrina Mckeon MD 01/12/2018 6:40 AM Signed CRITICAL CARE PROGRESS NOTE SERVICE DATE: January 12, 2018 SERVICE TIME: 6:15 AM Admission Date: 01/12/2018 AGE: [age] year old LOS: 0 days REASON FOR ICU ADMISSION: Ruptured AAA Acute blood loss anemia Cardiac arrest Anticipated acute hypoxic post-operative respiratory insufficiency Subjective Patient is a 77 year old man emergently transferred to [facility] from [place] for a ruptured abdominal aortic aneurysm. He had a systolic blood pressure in the 60's at [place] which fell to the 50's en route with eventual arrest before arrival at [facility]. He was receiving CPR at the [...] 43.3 38.7 37.0 57.1* 32.8* 44.3 33.1* Q5QRSLIU 95.8 96.9 99.1* 99.8* 99.8* 99.7* 99.4* 99.4* CBC: Recent Labs 01/12/18 0140 HB 5.2* HCT 16.8* COAG: Recent Labs 01/12/18 041 APTT 82.2* INR 1.56 CHEM: Recent Labs [...] services: 40 minutes. SIGNATURE: Ekaterina Mckeon MD [facility] PAGER:[phone] DATE of SERVICE: January 12, 2018 TIME [...] questions or concerns Mon-Fri 6a-5p please page [phone]. After 5pm and on Weekends and Holidays, please page [phone] if in ICU or [phone] if on RNF. Subjective SUBJECTIVE: Emergent Aortic repair overnight Diet: DIET NPO Objective OBJECTIVE: Vitals: No data recorded. Pulse 102 SpO2 90% O2 Therapy: Ventilator IANDO: Date 01/11/18699 - 01/12/18658(Not Admitted) 01/12/18699 - 01/13/18 0659 Shift 4013-9823 6730-9609 3508-7678 24 Hour Total 1670-0446 8959-8649 4792-6389 24 Hour Total I N T A [...] questions or concerns Mon-Fri 6a-5p please page [phone]. After 5pm and on Weekends and Holidays, please page [phone] if in ICU or [phone] if on RNF. Dionicio Stevens MD 01/12/2018 [...] OR now. Dionicio Stevens MD PGY-4 Pager: [phone] 01/12/2018, 8:02 AM Jose Jasso RN, RN 01/12/2018 8:32 AM Signed 0700 [...] January 12, 2018 TIME: 10:25 AM CSN: [id number] Dionicio Stevens MD 01/12/2018 11:29 AM Signed BRIEF OPERATIVE / PROCEDURE NOTE LOG ID: [id number] SURGERY/PROCEDURE DATE: 01/12/2018 INCISION/PROCEDURE START TIME: 8:34 AM INCISION CLOSE/PROCEDURE END TIME: 11:05 AM SURGEON(S)/PROCEDURALIST(S) AND REGISTERED ROUTE ASSOCIATE(S): Surgeon(s) and Role: * Venkat Paniagua - Primary * Dionicio Stevens - Resident - Assisting * Araceli Reynaga - Assisting Physician Mutuel Department Manager: Hailey Norris (Pa) SURGERY/PROCEDURE(S): Second Look Laparotomy, [...] ESTIMATED BLOOD LOSS: unmeasurable amount, estimated near 5619-5802 SPECIMENS: None COMPLICATIONS: None PRE-OP/PRE-PROCEDURE DIAGNOSIS: Open Abdomen, s/o AAA Repair, Coagulopathy, Hemorrhagic Shock POST-OP/POST-PROCEDURE DIAGNOSIS: BLEEDING IN COAGULOPATHIC PATIENT, NO SPECIFIC BLEEDING SITE IDENTIFIED, DIFFUSE COAGULOPATHIC BLEEDING Same SIGNATURE: Dionicio Stevens MD PATIENT NAME: Naveen Akins DATE: January 12, 2018 TIME: 11:22 AM PAGER/CONTACT #: Chaplain Serna Chaplain 01/12/2018 1:51 PM Signed SPIRITUALCARE Spiritual Care Visit- Brief Note Name: Naveen Akins Date: January 12, 2018 Notes: Met pt's fam in 3d floor [place] and,at their request, prayed with them. Will add pt to prayer list as well. Previous reconciliation specialist asked me to check in with them. Let them know I'd be here all day and reminded them of 27/12 reconciliation specialist availability. Will continue to follow as needed. Crack Off Person Signature: Chaplain Daphne To contact the Spiritual Care Department: Please call [phone] or Page the On-Call Crack Off Person at pager [phone] Thank you for the opportunity to be [...] 18 Gauge -- days Peripheral Admission to [facility] Right Hand 22 Gauge -- days [...] Invasive Ventilator Mode: Pressure Regulated Volume Control (01/12/181128) Set Ventilator Respiratory Rate (BPM): 14 (01/12/181128) Total Respiratory Rate (BPM): 14 (01/12/181128) Tidal [...] PMH of AAA who was transferred to [facility] in shock 2/2 ruptured AAA c/b [...] 1940 Vitals: 01/12/18 1500 01/12/18 1700 01/12/18 17301/12/18 1800 Temp: (!) 35.5 ?C (95.9 ?F) 36 ?C (96.8 ?F) (!) 35.6 ?C (96.1 ?F) 36.6 ?C (97.9 ?F) 01/12/18172901/12/18 17401/12/18 1800 01/12/18 184 Arterial BP 1: 113/63 117/65 119/66 99/55 01/12/18 1730 01/12/18 1745 01/12/18 1800 01/12/18 184 Pulse: 95 95 100 97 01/12/18 1730 [...] 12, 2018 TIME: 6:52 PM PAGER/CONTACT #: [phone] Chente Whittaker MD 01/12/2018 10:39 PM Signed [...] questions or concerns Mon-Fri 6a-5p please page [phone]. After 5pm and on Weekends and Holidays, please page [phone] if in ICU or [phone] if on RNF. Subjective SUBJECTIVE: Febrile overnight [...] 26.85 kg/m? O2 Therapy: Ventilator IANDO: Date 01/12/18 0700 - 01/13/18 0659 01/13/18 0700 - 01/14/18 0659 Shift 6180-9664 7970-9789 5039-0394 24 Hour Total 8821-2221 0375-2694 1087-3247 24 Hour Total I N T A K E IV 1600 5100 6700 IVPB 1600 50 1650 Potassium IVPB 300 300 LR 3000 3000 NORepinephrine Volume 200 200 ALBUMIN (mL) 1500 1500 MAGNESIUM SULFATE 50 50 Blood Products 4736 818 2523 PRBC Intake (mL) 900 900 Platelet mL [...] Noted - Ruptured abdominal aortic aneurysm (AAA) ([facility]) 01/12/2018 - DIC (disseminated intravascular coagulation) ([facility]) 01/12/2018 - Hemorrhagic shock ([facility]) 01/12/2018 - Acute respiratory failure ([facility]) 01/12/2018 - Cardiac arrest ([facility]) 01/12/2018 - Hypernatremia 01/12/2018 - Hypokalemia [...] Recent Labs 01/13/18 1015 01/13/18 0455 01/12/18 7665 PH 7.378 7.365 7.382 PO2 77.2* 84.6* 176.7* PCO2 37.7 40.7 39.3 Assessment/Plan IMPRESSION: Critical Care Documentation: The patient has the following organ/system impairment(s): Acute blood loss, Circulatory shock, Coagulopathy and Respiratory failure (Acute, with Hypoxemia) 77 year old male with PMH of AAA who was transferred to [facility] in shock 2/2 ruptured AAA c/b [...] Rosanna Talbert MD 01/13/2018 11:38 AM Signed [facility] [address] [place] [address] Consult Note Patient's Name: Naveen Akins 11:16 AM 01/13/2018 Reason for Consult: TERENCE ATTENDING/ADMITTING PHYSICIAN:Venkat Paniagua History of Present Ilness: Naveen Akins is a 77 year old male with past history of CAD (remote PCI/stent placement) and HTN who is admitted with ruptured AAA yesterday. Pt was life flight from [facility] [place] where ruptured AAA was diagnosed. Pt did [...] Also discussed with Dr. Granda, Wai Barcenas, GILBERTO, and Bedside RN (Jose). PAST MEDICAL HISTORY [...] is anuric with increased pressor requirement. D/w rfid developer, I agree that the pt will benefit [...] do not hesitate to contact me at [phone] with any concerns. Rosanna Talbert MD, (Shen Lorenzo) Rosanna Talbert MD 01/13/2018 12:27 PM Addendum BEDSIDE PROCEDURE NOTE DIALYSIS CATHETER Date/Start Time: 01/13/2018 11:39 AM Performed by: SHEN LORENZO Authorized by: SHEN LORENZO Consent/Panna Maria Protocol Written Consent Obtained: Yes Sign In [...] to clinical factors necessitating an emergent procedure [facility] Central Line Insertion Checklist Utilized: yes [...] AM PAGER/CONTACT #: Previous Version Wai Barcenas APRN.CNP 01/13/2018 1:15 PM Signed CARDIOVASCULAR SURGERY POSTOP [...] 13, 2018 TIME: 12:08 PM PAGER/CONTACT #: [phone] Lorrie Bo, RN, RN 01/13/2018 5:00 PM Signed CARE MANAGEMENT: ASSESSMENT AND DISCHARGE PLAN SERVICE DATE: 01/13/2018 SERVICE TIME: 4:46 PM PRIMARY CARE PHYSICIAN: Megan Hurst MD ADMISSION STATUS: Inpatient MEDICAL: Patient/[employer] Stated Goals: pt intubated, family hopeful for [...] therapy Has the Patient Been in a Group Home Facility in the Past 30 days? 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 Resources: dairy management specialist Primary Contact: Extended Emergency Contact Information Primary Emergency Contact: Shelly Mckeon Address: [address] [place] [address] [place] [address] Relation: Spouse Supportive: Yes Other Important Patient [...] 0 I feel financially burdened by my fzm-cj-upnlso expenses for my prescription medication: Disagree mostly [...] an SIGNATURE: Lorrie Bo RN PATIENT NAME: Naeven Akins DATE: January 13, 2018 TIME: 4:45 PM PAGER/CONTACT #: [phone] Mark Woods MD 01/14/2018 8:54 AM Signed [...] Noted - Ruptured abdominal aortic aneurysm (AAA) ([facility]) 01/12/2018 - Encephalopathy 01/13/2018 - DIC (disseminated intravascular coagulation) ([facility]) 01/12/2018 - Hemorrhagic shock ([facility]) 01/12/2018 - Acute respiratory failure ([facility]) 01/12/2018 - Cardiac arrest ([facility]) 01/12/2018 - Hypernatremia 01/12/2018 - Hypokalemia 01/12/2018 - Hypomagnesemia 01/12/2018 - Hypophosphatemia 01/12/2018 - Hyperchloremia 01/12/2018 - AAA (abdominal aortic aneurysm, ruptured) ([facility]) 01/12/2018 Overview Note: Added automatically from request for surgery [id number] Assessment and Plan: Seen in OR today. No sign of ischemic colon Mark Woods MD, FACS Section of Trauma, Surgery Critical Care, and Acute Care Surgery Pager: [phone] Office: [phone] January 14, 2018 ==== SERVICE DATE: 01/13/2018 [...] Diagnosis Date - DIC (disseminated intravascular coagulation) ([facility]) 01/12/2018 PAST SURGICAL HISTORY Procedure Laterality [...] as needed D/W Dr. Woods SIGNATURE: Dionicio Steevns MD PATIENT NAME: Naveen Akins DATE: January 13, 2018 TIME: 5:23 PM PAGER/CONTACT #: Emergency General Surgery Service Pager: For questions or concerns Mon-Fri 6a-5p please page [phone]. After 5pm and on Weekends and Holidays, please page [phone] if in ICU or [phone] if on RNF. Previous Version Tim Santacruz RN, RN 01/13/2018 7:01 PM Signed CRRT [...] at 01/13/182134 Last data filed at 01/13/18 1948 Gross [...] Gilbert Tucker MD 01/15/2018 11:32 AM Signed [facility] - Consultation PATIENT NAME: NAVEEN AKINS CSN: [id number] DATE OF : 1940 SEX/AGE: M/77 PATIENT TYPE: I HOSP SV: [facility] LOCATION: [id number] DATE OF SERVICE: 01/14/[address] Venkat Paniagua. INDICATION: SVT. HISTORY OF PRESENT ILLNESS: This is very ill 77-year-old gentleman transferred from [facility] couple days ago. He had an AAA [...] with you. Gilbert Tucker MD Cardiology DAC:modl /[id number] Previous Version Dionicio Stevens MD 01/14/2018 8:48 [...] 26.85 kg/m? O2 Therapy: Ventilator IANDO: Date 01/13/18699 - 01/14/1865801/14/18699 - 01/15/18 0659 Shift 4400-2666 1810-5129 9772-3211 24 Hour Total 8617-0839 8918-8006 8439-9896 24 Hour Total I N T A [...] 01/12/18 0749 Abdomen) 2500 700 3200 Tubes 302 988 1933 1950 Drain/Tube Output (Drain/Tube 01/12/18 0100 Hemovac [...] Noted - Ruptured abdominal aortic aneurysm (AAA) ([facility]) 01/12/2018 - Encephalopathy 01/13/2018 - DIC (disseminated intravascular coagulation) ([facility]) 01/12/2018 - Hemorrhagic shock ([facility]) 01/12/2018 - Acute respiratory failure ([facility]) 01/12/2018 - Cardiac arrest ([facility]) 01/12/2018 - Hypernatremia 01/12/2018 - Hypokalemia 01/12/2018 - Hypomagnesemia 01/12/2018 - Hypophosphatemia 01/12/2018 - Hyperchloremia 01/12/2018 - AAA (abdominal aortic aneurysm, ruptured) ([facility]) 01/12/2018 Overview Note: Added automatically from request for surgery [id number] 77 year old male with Ruptured AAA [...] and imaging results. LABS: Recent Labs 01/14/18 0440 01/13/18 2215 01/13/18 0615 WBC 9.62* 11.29* < > -- [...] this interval not displayed. ABG: Recent Labs 01/14/18 0440 01/13/18 2215 01/13/18 1600 PH 7.400 7.359 7.370 PO2 87.3 104.2* 65.2* PCO2 37.4 42.0 39.1 Assessment/Plan IMPRESSION: Critical Care Documentation: The patient has the following organ/system impairment(s): Circulatory shock, Complex life-threatening medical problem(s) and Respiratory failure (Acute, with Hypoxemia) 77 year old male with PMH of AAA who was transferred to [facility] in shock 2/2 ruptured AAA c/b [...] Pulse: 116 119 (!) 123 115 Resp: 18 18 Temp: TempSrc: SpO2: 97% 96% 97% 98% [...] infusion (DIPRIVAN) 5-60 mcg/kg/min INTRAVENOUS CONTINUOUS Chente Whittaker Last Rate: 4.81 mL/hr at 01/14/18 0628 10 mcg/kg/min at 01/14/18 0628 ampicillin-sulbactam 3 g in NaCl 0.9% 100 mL MB+ (UNASYN) 3 g INTRAVENOUS q 6 H Chente Whittaker Last Rate: 200 mL/hr at 01/14/18 0608 [...] H Elder Yu) Kalee 15 mL at 01/13/182124 perflutren lipid microspheres [...] January 14, 2018 TIME: 8:12 AM CSN: [id number] Renate Handy DO 01/14/2018 10:14 AM Signed NEPHROLOGY PROGRESS NOTE SERVICE DATE: 01/14/2018 SERVICE TIME: 10:08 AM Subjective INTERVAL HISTORY: Pt went to OR this morning for wash out and check bowel. Per RN, everthing was stable He just arrived back and [...] - - (!) 165 17 98 % 01/13/182011 - - - 113 18 96 % [...] do not hesitate to contact me at [phone] with any concerns SIGNATURE: Renate Handy DO PATIENT NAME: Naveen Akins DATE: January 14, 2018 TIME: 10:08 AM PAGER/CONTACT #: Kannan Felder MD 01/14/2018 12:04 PM Attested Attestation signed by Mark Woods at 01/14/2018 2:33 PM Seen in OR Mark Woods MD PROGRESS NOTE EGS Surgery Progress Note Emergency General Surgery Service Pager: For questions or concerns Mon-Tue 6a-5p please page [phone]. After 5pm and on Weekends and Holidays, please page [phone] if in ICU or [phone] if on RNF. SERVICE DATE: 01/14/2018 SERVICE [...] 0659 01/14/18 0700 - 01/15/18 0659 Shift 4941-4189 9762-0273 4325-1049 24 Hour Total 9399-5689 3990-9658 1475-6104 24 Hour Total I N T A [...] Abdomen) 2500 700 3200 500 500 Tubes 805 173 2668 1950 1350 1350 Drain/Tube Output (Drain/Tube 01/12/18 [...] tests reviewed for today's visit: Recent Labs 01/14/1843901/13/18221401/13/18 1600 PH 7.400 7.359 7.370 PCO2 37.4 [...] Noted - Ruptured abdominal aortic aneurysm (AAA) ([facility]) 01/12/2018 - Encephalopathy 01/13/2018 - DIC (disseminated intravascular coagulation) ([facility]) 01/12/2018 - Hemorrhagic shock ([facility]) 01/12/2018 - Acute respiratory failure ([facility]) 01/12/2018 - Cardiac arrest ([facility]) 01/12/2018 - Hypernatremia 01/12/2018 - Hypokalemia 01/12/2018 - Hypomagnesemia 01/12/2018 - Hypophosphatemia 01/12/2018 - Hyperchloremia 01/12/2018 - AAA (abdominal aortic aneurysm, ruptured) ([facility]) 01/12/2018 Overview Note: Added automatically from request for surgery [id number] Assessment/Plan with Ruptured AAA s/p Emergent Repair, [...] January 14, 2018 TIME: 12:02 PM PAGER: [phone] Roxane Silva, RN, RN 01/14/2018 12:40 PM Signed CRRT restarted without problem. Report given to COATING MACHINE FEEDER. PT stable Paulo Lovelace APRN.CHAIR INSPECTOR 01/14/2018 3:29 PM Signed MICU - PROGRESS [...] (01/14/18 113) Total Respiratory Rate (BPM): 18 (01/14/181136) Tidal Volume Set (mL): 500 (01/14/181136) Exhaled Tidal Volume (mL): 503 (01/14/181136) Minute Volume (L): 9.1 (01/14/181136) Peak Inspiratory Pressure (cm H2O): 24 (01/14/18 [...] male with H/O AAA was transferred from [place] in shock 2/2 ruptured AAA s/p cardiac [...] 40 minutes excluding procedures. SIGNATURE: Paulo Lovelace APRN.CHAIR INSPECTOR PATIENT NAME: Naveen Akins DATE: January 14, 2018 TIME: 2:18 PM Gilbert Tucker MD 01/14/2018 3:49 PM Signed Card Consult Dictated Job [id number] 1.SVT in pt with AAA rupture, s/p arrest on FORENSIC CHEMIST, pressors; Echo EF 55%-SVT related to meds, mileau -On IV Amio -now sinus tach will follow Thanks Gilbert Tucker MD Pager [phone] Jose Jasso, RN, RN 01/14/2018 4:21 PM [...] 01/14/18 1800 01/14/18 1815 01/14/18 1830 Resp: 18 01/14/18 1745 01/14/18 1800 01/14/18 1815 [...] Venkat Paniagua MD 01/22/2018 7:14 PM Signed [facility] - Operative Report SURGEON: Venkat Paniagua MD PATIENT NAME: NAVEEN AKINS CSN: [id number] DATE OF SURGERY: 01/14/2018 DATE OF : 1940 SEX/AGE: M/77 PATIENT TYPE: I HOSP SVC: LICO LOCATION: [id number] DATE OF SURGERY: 01/14/2018 SURGEON: Venkat Paniagua MD The patient is an inpatient. PREOPERATIVE DIAGNOSIS: Status post ruptured abdominal aortic aneurysm with ABThera device in place. POSTOPERATIVE DIAGNOSIS: Status post ruptured abdominal aortic aneurysm with ABThera device in place. PROCEDURE: Removal of packing from retroperitoneum, intraabdominal irrigation, examination of the retroperitoneum and bowel, and replacement of ABThera device. REGISTERED ROUTE ASSOCIATE: Dr. Wally Norris PA. ANESTHESIA: General. HISTORY: This is a [...] critical condition. Venkat Paniagua MD Vascular Surgery DJW:[email or web address] /[id number] DOWNTIME NOTE 01/15/2018 5:12 AM Signed [facility] Scheduled Downtime: 01/15/2018 1:05:00 AM to 01/15/2018 4:56:36 AM Dionicio Stevens MD 01/15/2018 8:11 AM Signed Vascular Surgery Progress Note SERVICE DATE: 01/15/2018 Vascular AND Thoracic Surgery Service Pager: For questions or concerns Mon-Fri 6a-5p please page [phone]. After 5pm and on Weekends and Holidays, please page [phone] if in ICU or [phone] if on RNF. Subjective SUBJECTIVE: SVT requiring [...] 26.85 kg/m? O2 Therapy: Ventilator IANDO: Date 01/14/18699 - 01/15/1865801/15/18699 - 01/16/18 0659 Shift 4775-9914 0493-3785 4970-1737 24 Hour Total 4601-1012 9680-3134 3570-6978 24 Hour Total I N T A [...] 01/12/18 0749 Abdomen) 1000 1000 2000 Tubes 8918 073 6904 3955 Drain/Tube Output (Drain/Tube 01/12/18 0100 Hemovac Midline Anterior Abdomen) 500 1125 1625 Drain/Tube Output (Drain/Tube 01/12/18 Fecal Management System) 250 30 0 280 Output (GI Feed/Drain 01/12/18 0100) 1100 278 073 5488 Dialysis 0 924 2623 3547 Dialysis Output [...] Noted - Ruptured abdominal aortic aneurysm (AAA) ([facility]) 01/12/2018 - Encephalopathy 01/13/2018 - DIC (disseminated intravascular coagulation) ([facility]) 01/12/2018 - Hemorrhagic shock ([facility]) 01/12/2018 - Acute respiratory failure ([facility]) 01/12/2018 - Cardiac arrest ([facility]) 01/12/2018 - Hypernatremia 01/12/2018 - Hypokalemia 01/12/2018 - Hypomagnesemia 01/12/2018 - Hypophosphatemia 01/12/2018 - Hyperchloremia 01/12/2018 - AAA (abdominal aortic aneurysm, ruptured) ([facility]) 01/12/2018 Overview Note: Added automatically from request for surgery [id number] 77 year old male with Ruptured AAA [...] discussed with attending: Dr. Cox SIGNATURE: Dionicio Steevns MD PATIENT NAME: Naveen Akins DATE: January 15, 2018 TIME: 6:29 AM Vascular AND Thoracic Surgery Service Pager: For questions or concerns Mon-Fri 6a-5p please page [phone]. After 5pm and on Weekends and Holidays, please page [phone] if in ICU or [phone] if on RNF. Kannan Felder MD 01/15/2018 9:22 AM Attested Attestation signed by Mark Woods at 01/16/2018 11:25 AM Care per vasc gen surg available to asisst with closure if needed Mark Woods MD PROGRESS NOTE EGS Surgery Progress Note Emergency General Surgery Service Pager: For questions or concerns Mon-Tue 6a-5p please page [phone]. After 5pm and on Weekends and Holidays, please page [phone] if in ICU or [phone] if on RNF. SERVICE DATE: 01/15/2018 SERVICE [...] 0659 01/15/18 07 - 01/16/18 0659 Shift 4018-7112 7749-4932 5224-9593 24 Hour Total 8857-6505 4192-6617 5107-0015 24 Hour Total I N T A [...] 01/12/18 0749 Abdomen) 1000 1000 2000 Tubes 4160 759 8705 3955 75 75 Drain/Tube Output (Drain/Tube 01/12/18 0100 Hemovac Midline Anterior Abdomen) 500 1125 1625 75 75 Drain/Tube Output (Drain/Tube 01/12/18 Fecal Management System) 250 30 0 280 0 0 Output (GI Feed/Drain 01/12/18 010) 1100 843 752 6970 0 0 Dialysis 0 924 2623 3547 [...] Noted - Ruptured abdominal aortic aneurysm (AAA) ([facility]) 01/12/2018 - Encephalopathy 01/13/2018 - DIC (disseminated intravascular coagulation) ([facility]) 01/12/2018 - Hemorrhagic shock ([facility]) 01/12/2018 - Acute respiratory failure ([facility]) 01/12/2018 - Cardiac arrest ([facility]) 01/12/2018 - Hypernatremia 01/12/2018 - Hypokalemia 01/12/2018 - Hypomagnesemia 01/12/2018 - Hypophosphatemia 01/12/2018 - Hyperchloremia 01/12/2018 - AAA (abdominal aortic aneurysm, ruptured) ([facility]) 01/12/2018 Overview Note: Added automatically from request for surgery [id number] Assessment/Plan with Ruptured AAA s/p Emergent Repair, [...] January 15, 2018 TIME: 9:18 AM PAGER: [phone] Elder Granda MD 01/15/2018 10:06 AM Signed [...] Ventilator Mode: Pressure Regulated Volume Control (01/15/18 0740) Set Ventilator Respiratory Rate (BPM): 18 (01/15/18 0740) Total Respiratory Rate (BPM): 18 (01/15/18 0740) Tidal Volume Set (mL): 500 (01/15/1840) Exhaled Tidal Volume (mL): 502 (01/15/1840) Minute Volume (L): 9.1 (01/15/18 0740) Peak [...] PMH of AAA who was transferred to [facility] in shock 2/2 ruptured AAA c/b [...] pt with AAA rupture, s/p arrest on FORENSIC CHEMIST, pressors; Echo EF 55%-SVT related to meds, [place] -On IV Amio-no recurrence thus far -now sinus tach -no recommendations ? SIGNATURE: Gilbert Tucker MD PATIENT NAME: Naveen Akins DATE: January 15, 2018 TIME: 10:39 AM PAGER/CONTACT #: [phone] Iza Arguelles, RN, RN 01/15/2018 11:44 AM [...] recheck labs Dionicio Stevens MD PGY-4 Pager: [phone] 01/15/2018, 11:48 AM Iza Arguelles, RN, RN [...] BFR AT 200. REPORT TO WAI Lovelace, CHROME POLISHER.CHAIR INSPECTOR 01/15/2018 3:33 PM Signed Abdomen appears more [...] do not hesitate to contact me at [phone] with any concerns SIGNATURE: Renate Handy DO [...] follow closely Dionicio Stevens MD PGY-4 Pager: [phone] 01/15/2018, 4:05 PM Chente Whittaker MD 01/15/2018 [...] BALANCE Intake/Output Summary (Last 24 hours) at 01/15/182226 Last data filed at 01/15/18 2100 Gross per 24 hour Intake 8140.4 ml Output 21723 ml Net -2018.6 ml DATA: I personally [...] questions or concerns Mon-Fri 6a-5p please page [phone]. After 5pm and on Weekends and Holidays, please page [phone] if in ICU or [phone] if on RNF. Subjective SUBJECTIVE: Weaning down [...] Ventilator IANDO: Date 01/15/18699 - 01/16/18 0659 01/16/18699 - 01/17/18 0659 Shift 4307-0330 6447-9317 9504-8064 24 Hour Total 0844-2447 9062-2034 9291-4457 24 Hour Total I N T A [...] 16 Fr) 2 8 81 91 Tubes 491 141 9210 2675 Drain/Tube Output (Drain/Tube 01/12/18 0100 Hemovac Midline Anterior Abdomen) 978 330 0176 2575 Drain/Tube Output (Drain/Tube 01/12/18 Fecal Management System) 0 0 0 0 Output (GI Feed/Drain 01/12/18 0100) 100 0 0 100 Dialysis 2082 2424 2629 7136 Dialysis Output (Ultrafiltration) 2082 2424 2629 7136 Shift Total 2865 3277 [...] Noted - Ruptured abdominal aortic aneurysm (AAA) ([facility]) 01/12/2018 - Encephalopathy 01/13/2018 - DIC (disseminated intravascular coagulation) ([facility]) 01/12/2018 - Hemorrhagic shock ([facility]) 01/12/2018 - Acute respiratory failure ([facility]) 01/12/2018 - Cardiac arrest ([facility]) 01/12/2018 - Hypernatremia 01/12/2018 - Hypokalemia 01/12/2018 - Hypomagnesemia 01/12/2018 - Hypophosphatemia 01/12/2018 - Hyperchloremia 01/12/2018 - AAA (abdominal aortic aneurysm, ruptured) ([facility]) 01/12/2018 Overview Note: Added automatically from request for surgery [id number] 77 year old male with Ruptured AAA [...] (01/16/18814) Exhaled Tidal Volume (mL): 493 (01/16/18 0331) [...] resident's note and agree. Costa Miguel MD, [facility], [facility] PROGRESS NOTE EGS Surgery Progress Note Emergency General Surgery Service Pager: For questions or concerns Mon-Tue 6a-5p please page [phone]. After 5pm and on Weekends and Holidays, please page [phone] if in ICU or [phone] if on RNF. SERVICE DATE: 01/16/2018 SERVICE [...] Date 01/15/18 0700 - 01/16/18 0659 01/16/18 07 - 01/17/18 0659 Shift 0260-5928 6111-8106 7534-2921 24 Hour Total 3869-6839 5594-4923 4237-3934 24 Hour Total I N T A [...] 2 8 81 91 23 23 Tubes 894 499 0430 2675 750 750 Drain/Tube Output (Drain/Tube 01/12/18 0100 Hemovac Midline Anterior Abdomen) 005 813 4356 2575 450 450 Drain/Tube Output (Drain/Tube 01/12/18 Fecal Management System) 0 0 0 0 50 50 Output (GI Feed/Drain 01/12/18 0100) 100 0 0 100 250 250 Dialysis 20824 2869 7376 104 104 Dialysis Output (Ultrafiltration) 2082 2423 2868 7376 104 104 Shift Total 2865 3277 4000 75319 877 877 Weight (kg) 104.7 104.7 104.2 [...] Noted - Ruptured abdominal aortic aneurysm (AAA) ([facility]) 01/12/2018 - Encephalopathy 01/13/2018 - DIC (disseminated intravascular coagulation) ([facility]) 01/12/2018 - Hemorrhagic shock ([facility]) 01/12/2018 - Acute respiratory failure ([facility]) 01/12/2018 - Cardiac arrest ([facility]) 01/12/2018 - Hypernatremia 01/12/2018 - Hypokalemia 01/12/2018 - Hypomagnesemia 01/12/2018 - Hypophosphatemia 01/12/2018 - Hyperchloremia 01/12/2018 - AAA (abdominal aortic aneurysm, ruptured) ([facility]) 01/12/2018 Overview Note: Added automatically from request for surgery [id number] Assessment/Plan 77 yo M with Ruptured AAA [...] questions or concerns Mon-Fri 6a-5p please page [phone]. After 5pm and [...] old male transferred in critical condition from [facility] with diagnosed ruptured AAA. Patient was life-flighted to [facility]. Intubated at outside facility. Per EMS, [...] admit X 4 days after tx from [facility]. Present Diet Order: NPO Enteral Access: NG Nutritional Intake Prior to Admission: Intake hx unknown;tx from [facility] and has not been on support yet [...] : 104.2 kg (229 lb 11.5 oz) [place] Body Weight: 96kg Resting Metabolic Rate: 1746 Estimated kilocalorie needs: 3057-7056 kilocalories determined by 20-25 kcal/kg Estimated protein needs: 144 grams determined by 1.5gms/kg [place] weight Estimated fluid needs: per renal NUTRITION [...] Intake/Output 01/12/18 0700 - 01/13/18 0659 01/13/18 0700 - 01/14/18 0659 01/14/18 0700 - 01/15/18 0659 01/15/18 0700 - 01/16/18 0659 01/16/18 0700 - 01/17/18 0659 Intake (ml) 17598 8893.5 9167.4 8388 1518.2 Output (ml) 6865 5529 9661 17055 1791 Net (ml) 4742 3364.5 -493.6 -1754 [...] January 16, 2018 TIME: 1:44 PM PAGER: [phone] Viktoriya Alvarado RN, RN 01/16/2018 2:40 PM [...] 16, 2018 TIME: 2:38 PM PAGER/CONTACT #: [phone] Yessica Guy RN, RN 01/16/2018 5:44 PM Signed Whenever this patient comes back to the OR to be closed, an xray needs to be done prior to. PER DR. LA Felder MD 01/16/2018 6:13 PM Signed BRIEF OPERATIVE / PROCEDURE NOTE LOG ID: [id number] SURGERY/PROCEDURE DATE: 01/16/2018 INCISION/PROCEDURE START TIME: 5:30 PM INCISION CLOSE/PROCEDURE END TIME: 5:57 PM SURGEON(S)/PROCEDURALIST(S) AND REGISTERED ROUTE ASSOCIATE(S): Surgeon(s) and Role: * Venkat Paniagua - Primary * Kannan (Luther Felder - Resident - Assisting Digital Technician: Dorcas Schuler SA SURGERY/PROCEDURE(S): exploratory laparotomy. Change [...] VAC CHANGE (N/A) Surgeon(s): Venkat Brunner (Res) [facility] Estimated body mass index is 34.93 kg/m? [...] INTRAVENOUS ONCE TPN (1800 START) H Edwin Babinashley Last Rate: 100 mL/hr at 01/16/18 185 [MAR Hold due to Transfer] heparin 1,000 unit/mL 4,000 Units injection 4,000 Units INTRAVENOUS 3 Times weekly with dialysis Ancelmovinaysharon Belleari 1.4 mL at 01/16/18 1739 [MAR Hold due to Transfer] NaCl 0.9% iv infusion 100 mL/hr INTRAVENOUS CONTINUOUS Dionicio (Res) Stevens Last Rate: 100 mL/hr at 01/16/181842 100 mL/hr at 01/16/181842 [MAR Hold due to Transfer] amiodarone 360 mg in D5W 200 mL (NEXTERONE) 0.5-1 mg/min INTRAVENOUS CONTINUOUS Paulo (Clinical Applications Manager) Radu Last Rate: 16.67 mL/hr at 01/16/181842 0.5 mg/min at 01/16/181842 [MAR Hold due to Transfer] heparin 5,000 Units injection 5,000 Units SUBCUTANEOUS q 12 H Mervin (Res) Wally 5,000 Units at 01/16/18 0845 [MAR Hold due to Transfer] propofol infusion (DIPRIVAN) 5- 60 mcg/kg/min INTRAVENOUS CONTINUOUS Chente R Cucci Last Rate: 14.42 mL/hr at 01/16/18 1323 30 mcg/kg/min at 01/16/18 1323 [MAR Hold due to Transfer] ampicillin-sulbactam 3 g in NaCl 0.9% 100 mL MB+ (UNASYN) 3 g INTRAVENOUS q 6 H Chente R Cucci Last Rate: 200 mL/hr at 01/16/181840 3 [...] (Res) Cardella Last Rate: 7.5 mL/hr at 01/16/181843 150 mcg/hr at 01/16/181843 [MAR Hold due to Transfer] pantoprazole 40 mg injection (PROTONIX) 40 mg INTRAVENOUS DAILY (6 AM) Emilie (Res) Cardella 40 mg at 01/16/18 0520 [MAR Hold due to Transfer] NORepinephrine 16 mg in D5W 250 mL (LEVOPHED) 0.6-40 mcg/min INTRAVENOUS CONTINUOUS Chente R Cucci Last Rate: 20.63 mL/hr at 01/16/181842 22 mcg/min at 01/16/181842 [MAR Hold due to Transfer] Chlorhexidine Gluconate 0.12 % 15 mL (PERIDEX) 15 mL ORAL q 12 H Elder Yu) Kalee 15 mL at 01/16/18 0845 Allergies: ALLERGIES [...] January 16, 2018 TIME: 7:06 PM CSN: [id number] Derian Barlow MD 01/16/2018 7:08 PM Signed POST ANESTHESIA EVALUATION NOTE SERVICE DATE: 01/16/2018 SERVICE TIME: 1907 : 1940 Vitals: 01/16/18 0000 01/16/18 0500 01/16/18 0710 01/16/18 1110 Temp: 36.5 ?C (97.7 ?F) 36.1 ?C (97 ?F) 36 ?C (96.8 ?F) (!) 35.9 ?C (96.7 ?F) 01/16/18169901/16/18181401/16/18 18301/16/18 1845 Arterial BP 1: 110/47 125/52 145/59 112/48 BP: 01/16/18 17001/16/18181401/16/18 18301/16/18 184 Pulse: 84 86 91 88 01/16/18 1705 01/16/18 1815 01/16/18 18301/16/18 184 Resp: 17 16 15 16 01/16/18 17001/16/18181401/16/18182901/16/181844 SpO2: 91% 95% 90% 96% Validated Vital [...] 7:36 PM Signed crrt taken off per horticulturalist at around 1645 for OR trip/ crrt resumed at 1930/ on 4 k bfr 200 flows at 700 / horticulturalist to try to remove some fluid off per hour depending on bp/ drsg changed to LIJ dialysis catheter/ hemosafe device x2 - report to horticulturalist /ariadna stewart rn Dionicio Stevens MD 01/17/2018 [...] IANDO: Date 01/16/18 07 - 01/17/18 0659 01/17/18699 - 01/18/18 0659 Shift 3836-3792 2373-8986 7442-0788 24 Hour Total 5596-5649 6534-1303 0362-0536 24 Hour Total I N T A [...] 16 Fr) 116 5 34 155 Tubes 3948 266 8540 2955 Drain/Tube Output (Drain/Tube 01/12/18 0100 Hemovac Midline Anterior Abdomen) 850 339 746 4224 Drain/Tube Output (Drain/Tube 01/12/18 Fecal Management System) 125 0 50 175 Output (GI Feed/Drain 01/12/18 0100) 355 100 100 555 Dialysis 564 1073 2139 3776 Dialysis Output (Ultrafiltration) 564 1073 2139 3776 Shift Total 2009 5583 2583 6852 Weight (kg) 104.2 104.2 104.2 104.2 104.2 [...] Noted - Ruptured abdominal aortic aneurysm (AAA) ([facility]) 01/12/2018 - Obesity, Class I, BMI 30-34.9 01/16/2018 - Encephalopathy 01/13/2018 - DIC (disseminated intravascular coagulation) ([facility]) 01/12/2018 - Hemorrhagic shock ([facility]) 01/12/2018 - Acute respiratory failure ([facility]) 01/12/2018 - Cardiac arrest ([facility]) 01/12/2018 - Hypernatremia 01/12/2018 - Hypokalemia 01/12/2018 - Hypomagnesemia 01/12/2018 - Hypophosphatemia 01/12/2018 - Hyperchloremia 01/12/2018 - AAA (abdominal aortic aneurysm, ruptured) ([facility]) 01/12/2018 Overview Note: Added automatically from request for surgery [id number] 77 year old male with Ruptured AAA [...] questions or concerns Mon-Fri 6a-5p please page [phone]. After 5pm and [...] 500 (01/17/18919) Exhaled Tidal Volume (mL): 508 (01/17/188) Minute Volume (L): 8.9 (01/17/18919) Peak Inspiratory [...] at 01/17/18 0906 45 mmol at 01/17/18 09 propofol infusion (DIPRIVAN) 0-15 mcg/kg/min (Adjusted) INTRAVENOUS CONTINUOUS Dionicio (Res) Stevens Parenteral Nutrition - Adult INTRAVENOUS ONCE TPN (1800 START) Perla Dudley Last Rate: 100 mL/hr at 01/17/18 0730 heparin 1,000 unit/mL 4,000 Units injection 4,000 Units INTRAVENOUS 3 Times weekly with dialysis Troy Godoy 1.4 mL at 01/16/18 1739 amiodarone 360 mg in D5W 200 mL (NEXTERONE) 0.5-1 mg/min INTRAVENOUS CONTINUOUS Paulo (Clinical Applications Manager) [place]ock Last Rate: 16.67 mL/hr at 01/17/18 0730 0.5 mg/min at 01/17/18 0730 heparin 5,000 Units injection 5,000 Units SUBCUTANEOUS q 12 H Christopher (Res) Wally 5,000 Units at 01/17/18 1017 [...] lower extremity edema/anasarca Data: Labs: Recent Labs 01/17/18 0435 01/16/18 1955 01/16/18 1145 WBC 8.70 11.42* 8.26 HB 10.6* 10.3* 10.4* HCT 30.5* 30.1* 29.6* MCV 85.2 84.8 84.1 PLT 59* 65* 46* Recent Labs 01/17/18 0435 01/16/185 01/16/18 0430 01/15/18 0400 NA 137 137 137 < > [...] even. I will discuss fluid management with rfid developer. ? 2. Shock. Likely hemorrhagic shock-massive blood [...] do not hesitate to contact me at [phone] if there is any question or concern. Rosanna Talbert MD (Shen Lorenzo) Chaplain Serna Chaplain 01/17/2018 11:10 AM Signed [facility] Visit- Brief Note Name: Naveen Akins Date: January 17, 2018 Notes: Checked in w/pt's family in 3d floor WR--will continue to follow as appropriate. Crack Off Person Signature: Chaplain Daphne To contact the [facility] Care Department: Please call [phone] or Page the On-Call Crack Off Person at pager [phone] Thank you for the opportunity to be of service. This is an electronically created document. IF PRINTED, PLEASE DO NOT REMOVE FROM THE CHART OR MODIFY PRINTED COPY. Steve Rivera, RN, RN 01/17/2018 11:21 AM Signed Epic reviewed, pt went to OR yesterday for ex-lap, abdominal washout and wound vac change, plan is to go back to OR today. Remains on ventilator. Costa Miguel MD, FACS, SALLY 01/17/2018 1:50 PM Signed Discussed patient with Dr. Paniagua. Tentative plan is takeback to OR zm 01/19 to begin closure attempt and vac change. Costa Miguel MD, FACS, [facility] Wai Barcenas APRN.IRENE 01/17/2018 2:39 PM [...] min spent coordinating care. SIGNATURE: Wai Barcenas APRN.HOSTAGE NEGOTIATOR PATIENT NAME: Naveen Akins DATE: January 17, 2018 TIME: 2:35 PM PAGER/CONTACT #: [phone] ETX#[id number] J[address] Perez [address], KRISHAN 01/17/2018 3:23 PM Signed NUTRITION SUPPORT TEAM [...] old male transferred in critical condition from [facility] with diagnosed ruptured AAA. Patient was life-flighted to [facility]. Intubated at outside facility. Per EMS, [...] found for: PCGLUCOSE Jaimie Perez RD Pager: [phone] Increments: 3 rAiadna Stewart, RN, RN 01/17/2018 9:01 PM Signed 2030 crrt clotted horticulturalist able to return blood/new set up/ arterial and venous line both sluggish but running ART TO ART and trevor to trevor/ flows remain the same/ hemosafe device x2 report to horticulturalist -- ariadna stewart rn Chaplain Robbins Chaplain 01/18/2018 4:34 AM Signed [facility] Spiritual Care Visit- Brief Note Name: Naveen Akins Date: January 18, 2018 Notes: Visit with family in waiting room.Great support for patient. No coffee available to family. Machine on 4th floor has been broken for days. Notified nurse on 4800. Family thankful for continued visits and prayer. Crack Off Person Signature: Chaplain Rosendo To contact the [facility] Care Department: Please call [phone] or Page the On-Call Crack Off Person at pager [phone] Thank you for the opportunity to be [...] questions or concerns Mon-Fri 6a-5p please page [phone]. After 5pm and on Weekends and Holidays, please page [phone] if in ICU or [phone] if on RNF. Subjective SUBJECTIVE: NAEON, weaning [...] Ventilator IANDO: Date 01/17/18699 - 01/18/18 0659 01/18/18699 - 01/19/18 0659 Shift 1099-2252 5009-2485 2941-4459 24 Hour Total 7424-0164 1504-3507 4728-1527 24 Hour Total I N T A [...] Fr 01/17/18 1800) 32 28 60 Tubes 9120 036 8755 Drain/Tube Output (Drain/Tube 01/12/18 0100 Hemovac Midline Anterior Abdomen) 4595 748 8641 Drain/Tube Output (Drain/Tube 01/12/18 Fecal Management System) 0 0 0 Output (GI Feed/Drain 01/12/18 0100) 0 0 0 Dialysis 2138 799 308 1680 Dialysis Output (Ultrafiltration) 2138 244 266 4545 Shift Total 3270 5516 125 8660 Weight (kg) 104.2 104.2 104.2 104.2 104.2 [...] Noted - Ruptured abdominal aortic aneurysm (AAA) ([facility]) 01/12/2018 - Obesity, Class I, BMI 30-34.9 01/16/2018 - Encephalopathy 01/13/2018 - DIC (disseminated intravascular coagulation) ([facility]) 01/12/2018 - Hemorrhagic shock ([facility]) 01/12/2018 - Acute respiratory failure (HCC) 01/12/2018 - Cardiac arrest ([facility]) 01/12/2018 - Hypernatremia 01/12/2018 - Hypokalemia 01/12/2018 - Hypomagnesemia 01/12/2018 - Hypophosphatemia 01/12/2018 - Hyperchloremia 01/12/2018 - AAA (abdominal aortic aneurysm, ruptured) ([facility]) 01/12/2018 Overview Note: Added automatically from request for surgery [id number] 77 year old male with Ruptured AAA [...] ICU or 2174 if on RNF. Krystal Jacobson RN, RN 01/18/2018 10:46 AM Signed CARE [...] 18, 2018 TIME: 10:43 AM PAGER/CONTACT #: [phone] Mervin Lo MD 01/18/2018 12:27 PM Attested Attestation signed by Costa Miguel at 01/18/2018 12:27 PM I saw and evaluated the patient. I reviewed the resident's note and agree. Costa Miguel MD, [facility], [facility] EGS PROGRESS NOTES SERVICE DATE: 01/18/2018 [...] 01/17/18699 - 01/18/1865801/18/18699 - 01/19/18 0659 Shift 5040-9044 5665-0121 5887-0371 24 Hour Total 2136-5366 1428-5949 6352-7020 24 Hour Total I N T A [...] 0 0 0 0 0 Dialysis 2138 441 943 3251 1068 1068 Dialysis Output (Ultrafiltration) 2138 740 139 8680 1068 1068 Shift Total 3270 1841 1367 [...] Noted - Ruptured abdominal aortic aneurysm (AAA) ([facility]) 01/12/2018 - Obesity, Class I, BMI 30-34.9 01/16/2018 - Encephalopathy 01/13/2018 - DIC (disseminated intravascular coagulation) ([facility]) 01/12/2018 - Hemorrhagic shock ([facility]) 01/12/2018 - Acute respiratory failure ([facility]) 01/12/2018 - Cardiac arrest ([facility]) 01/12/2018 - Hypernatremia 01/12/2018 - Hypokalemia 01/12/2018 - Hypomagnesemia 01/12/2018 - Hypophosphatemia 01/12/2018 - Hyperchloremia 01/12/2018 - AAA (abdominal aortic aneurysm, ruptured) ([facility]) 01/12/2018 Overview Note: Added automatically from request for surgery [id number] 77 year old male with Ruptured AAA [...] January 18, 2018 TIME: 12:17 PM Pager: [phone] Emergency General Surgery Service Pager: For questions or concerns Mon-Tue 6a-5p please page [phone]. After 5pm and on Weekends and Holidays, please page [phone] if in ICU or [phone] if on RNF. Rosanna Talbert MD 01/18/2018 5:37 PM Signed Nephrology Progress Note Following for TERENCE. Pt is sedated and is on ventilator. Cannot obtain ROS. Current Inpatient Medications: Current Facility-Administered Medications Ordered in Epic: Parenteral Nutrition - Adult INTRAVENOUS ONCE TPN (1800 START) H Edwin Dudley dexmedetomidine 400 mcg in NaCl 0.9% 100 mL (PRECEDEX) 0.2- 0.7 mcg/kg/hr INTRAVENOUS CONTINUOUS Paulo (Clinical Applications Manager) Radu Last Rate: 2.61 mL/hr at 01/18/18 [...] mL (NEXTERONE) 0.5-1 mg/min INTRAVENOUS CONTINUOUS Paulo (Clinical Applications Manager) Hudock Last Rate: 16.67 mL/hr at 01/18/18 1557 0.5 mg/min at 01/18/18 1557 heparin 5,000 Units injection 5,000 Units SUBCUTANEOUS q 12 H Christopher (Res) Wally 5,000 Units at 01/18/18 1035 ampicillin-sulbactam 3 g in NaCl 0.9% 100 mL MB+ (UNASYN) 3 g INTRAVENOUS q 6 H Chente R Panfilo Last Rate: 200 mL/hr at 01/18/18 1145 [...] do not hesitate to contact me at [phone] if there is any question or concern. Rosanna Talbert MD (Shen Lorenzo) Chaplain Barbosa Chaplain 01/18/2018 6:21 PM Signed [facility] Spiritual Care Visit- Brief Note Name: Naveen Akins Date: January 18, 2018 Notes: Pre-surgery reconciliation specialist visit: Crack Off Person introduced himself and role/availability to Pt's daughter who was standing at bedside. Pt partially alert and unable to respond verbally. Pt's daughter indicated the Pt has endured 5 previous surgeries and is scheduled for his 6th the following day. Crack Off Person listened emphatically and confirmed how difficult the journey has been. Pt's daughter stated the family is well supported and has been present around the clock. Crack Off Person provided spiritual comfort and prayers as desired. Pt's daughter grateful for reconciliation specialist visit/prayers and provided reconciliation specialist with a hug. Pt/family would benefit from ongoing SC/support. Crack Off Person to remain available. Crack Off Person Signature: Chaplain Familia To contact the Spiritual Care Department: Please call [phone] or Page the On-Call Crack Off Person at pager [phone] Thank you for the opportunity to be [...] 2018 TIME: 10:03 PM Costa Miguel MD, [facility], [facility] 01/20/2018 4:15 PM Signed [facility] - Operative Report SURGEON: Costa Miguel MD PATIENT NAME: NAVEEN AKINS CSN: [id number] DATE OF SURGERY: 01/19/2018 DATE OF : 1940 SEX/AGE: M/77 PATIENT TYPE: I HOSP SVC: LICO LOCATION: [id number] DATE OF SURGERY: 01/19/2018 SURGEON: Costa Miguel MD PREOPERATIVE DIAGNOSIS: Open abdomen status post rupture of aneurysm. POSTOPERATIVE DIAGNOSIS: Open abdomen status post rupture of aneurysm. PROCEDURE: Exploratory laparotomy, partial closure of open abdomen and placement of ABThera wound VAC. REGISTERED ROUTE ASSOCIATE: Hermelinda Ferrell MD; and Hailey, surgical endoscopist. ANESTHESIA: General. INDICATIONS: Open abdomen, critically ill [...] then we started closing superiorly initially with [id number] sutures of #1 PDS, switching to running [...] provide assistance. Costa Miguel MD Surgery WJC:[id number] /[id number] Previous Version Dionicio Stevens MD 01/19/2018 8:48 AM Signed Vascular Surgery Progress Note SERVICE DATE: 01/19/2018 Vascular AND Thoracic Surgery Service Pager: For questions or concerns Mon-Fri 6a-5p please page [phone]. After 5pm and on Weekends and Holidays, [...] 0659 01/19/18 07 - 01/20/18 0659 Shift 1543-2196 5570-3375 9269-7483 24 Hour Total 7575-1233 0647-4695 9324-8484 24 Hour Total I N T A [...] Feed/Drain 01/12/18 0100) 0 0 Dialysis 1647 989 846 5610 Dialysis Output (Ultrafiltration) 1647 016 773 5258 Shift Total 2297 4102 588 6240 Weight (kg) 104.2 104.2 104.2 104.2 104.2 [...] Noted - Ruptured abdominal aortic aneurysm (AAA) ([facility]) 01/12/2018 - Obesity, Class I, BMI 30-34.9 01/16/2018 - Encephalopathy 01/13/2018 - DIC (disseminated intravascular coagulation) ([facility]) 01/12/2018 - Hemorrhagic shock ([facility]) 01/12/2018 - Acute respiratory failure ([facility]) 01/12/2018 - Cardiac arrest ([facility]) 01/12/2018 - Hypernatremia 01/12/2018 - Hypokalemia 01/12/2018 - Hypomagnesemia 01/12/2018 - Hypophosphatemia 01/12/2018 - Hyperchloremia 01/12/2018 - AAA (abdominal aortic aneurysm, ruptured) ([facility]) 01/12/2018 Overview Note: Added automatically from request for surgery [id number] 77 year old male with Ruptured AAA [...] in ICU or 2171 if on RNF. Mervin Lo MD 01/19/2018 9:02 AM Attested Attestation signed by Costa Miguel at 01/19/2018 1:43 PM I saw and evaluated the patient. I reviewed the resident's note and agree. Costa Miguel MD, FACS, [facility] EGS PROGRESS NOTES SERVICE DATE: 01/19/2018 [...] Ventilator IANDO: Date 01/18/18 07 - 01/19/18 0601/19/18699 - 01/20/18 0659 Shift 1793-7364 7602-1476 4111-4921 24 Hour Total 4383-0542 7659-5479 1790-5539 24 Hour Total I N T A K E IV 1190.6 157.6 1348.2 Calcium IVPB 250 250 Fentanyl Volume 71.6 89.6 161.2 Amiodarone 176 176 NORepinephrine Volume 256 68 324 Propofol IV 37 37 Ampicillin/Sulbactam (Unasyn) IV 400 400 TPN/PPN 1210 1210 TPN 1210 1210 Shift Total 2400.6 157.6 2558.2 O U T P U T Tubes 650 824 221 4551 Drain/Tube Output (Drain/Tube 01/12/18 0100 Hemovac Midline Anterior Abdomen) 650 934 479 1082 Drain/Tube Output (Drain/Tube 01/12/18 Fecal Management System) 0 20 20 Output (GI Feed/Drain 01/12/18 0100) 0 0 Dialysis 1647 988 846 7398 Dialysis Output (Ultrafiltration) 1647 311 633 2845 Shift Total 2297 5173 570 2374 Weight (kg) 104.2 104.2 104.2 104.2 104.2 [...] Noted - Ruptured abdominal aortic aneurysm (AAA) ([facility]) 01/12/2018 - Obesity, Class I, BMI 30-34.9 01/16/2018 - Encephalopathy 01/13/2018 - DIC (disseminated intravascular coagulation) ([facility]) 01/12/2018 - Hemorrhagic shock ([facility]) 01/12/2018 - Acute respiratory failure ([facility]) 01/12/2018 - Cardiac arrest ([facility]) 01/12/2018 - Hypernatremia 01/12/2018 - Hypokalemia 01/12/2018 - Hypomagnesemia 01/12/2018 - Hypophosphatemia 01/12/2018 - Hyperchloremia 01/12/2018 - AAA (abdominal aortic aneurysm, ruptured) ([facility]) 01/12/2018 Overview Note: Added automatically from request for surgery [id number] 77 year old male with Ruptured AAA [...] January 19, 2018 TIME: 9:01 AM Pager: [phone] Emergency General Surgery Service Pager: For questions or concerns Tue-Tue 6a-5p please page [phone]. After 5pm and on Weekends and Holidays, please page [phone] if in ICU or [phone] if on RNF. Hermelinda Ferrell MD 01/19/2018 10:28 AM Signed BRIEF OPERATIVE / PROCEDURE NOTE LOG ID: [id number] Patient Name:Naveen Akins CSN: [id number] Surgery/Procedure Date: 01/19/2018 Incision/Procedure Start Time: 9:00 AM Incision Close/Procedure End Time: Surgeon(s)/Proceduralist(s) and Mutuel Department Manager(s): Surgeon(s) and Role: * Venkat Paniagua - Primary * Costa Miguel - Assisting * Hermelinda (Edenilson) Ghassan - Resident - Assisting Digital Technician: Hailey Dixon SA Procedure(s): Procedure(s) (LRB): EXPLORATORY [...] 19, 2018 TIME: 10:26 AM PAGER/CONTACT #: [phone] Chaplain Serna Chaplain 01/19/2018 11:32 AM Signed [facility] Spiritual Care Visit- Brief Note Name: Naveen Akins Date: January 19, 2018 Notes: Checked in w/fam in 3d fl WR--pt is out of surgery and in recovery. Empathetic listening; ministry of presence. Crack Off Person Signature: Chaplain Daphne To contact the Spiritual Care Department: Please call [phone] or Page the On-Call Crack Off Person at pager [phone] Thank you for the opportunity to be [...] Elder Granda 15 mL at 01/18/18 2142 No current [...] do not hesitate to contact me at [phone] if there is any question or concern. Rosanna Talbert MD (Shen Lorenzo) Nohemi Marquez, RN, RN 01/19/2018 12:54 PM Signed 0800 CRRT off blood returned. 0820 To Or with anesthesia 1130 Back from [place]. Dialysis called to restart CRRT Derian Barlow MD 01/19/2018 1:54 PM Signed ANESTHESIOLOGY DAY OF SURGERY NOTE SERVICE DATE: 01/19/2018 SERVICE TIME: 08 : 1940 Procedure(s) (LRB): EXPLORATORY LAPAROTOMY, WASHOUT, [...] Yu) Kalee 15 mL at 01/18/18 2142 Allergies: ALLERGIES [...] January 19, 2018 TIME: 1:52 PM CSN: [id number] Steve Rivera, RN, RN 01/19/2018 2:28 PM [...] Therapy: Ventilator IANDO: Date 01/19/18699 - 01/20/18 0601/20/18699 - 01/21/18 0659 Shift 0682-7646 4468-8931 0893-9316 24 Hour Total 6566-0290 3234-7920 8724-4103 24 Hour Total I N T A K E IV 0410 203 5857 IVPB 79 79 NS 0.9% 756 41 797 Calcium IVPB 147 147 Fentanyl Volume 54 25 79 Dexmedetomidine IV 45 45 NORepinephrine Volume 78 50 128 Propofol IV 159 208 367 Ampicillin/Sulbactam (Unasyn) IV 100 200 300 TPN/PPN 8301 887 5107 TPN 9526 342 5241 Shift Total 2868 1313 4181 O U [...] Noted - Ruptured abdominal aortic aneurysm (AAA) ([facility]) 01/12/2018 - Obesity, Class I, BMI 30-34.9 01/16/2018 - Encephalopathy 01/13/2018 - DIC (disseminated intravascular coagulation) ([facility]) 01/12/2018 - Hemorrhagic shock ([facility]) 01/12/2018 - Acute respiratory failure ([facility]) 01/12/2018 - Cardiac arrest ([facility]) 01/12/2018 - Hypernatremia 01/12/2018 - Hypokalemia 01/12/2018 - Hypomagnesemia 01/12/2018 - Hypophosphatemia 01/12/2018 - Hyperchloremia 01/12/2018 - AAA (abdominal aortic aneurysm, ruptured) ([facility]) 01/12/2018 Overview Note: Added automatically from request for surgery [id number] 77 year old male with Ruptured AAA [...] 8:19 AM Incomplete {Select Nursing Progress Note Template:[id number]} Hermelinda Ferrell MD 01/20/2018 8:53 AM Attested Attestation signed by Costa Miguel at 01/20/2018 1:35 PM I saw and evaluated the patient. I reviewed the resident's note and agree. Costa Miguel MD, FACS, [facility] EGS PROGRESS NOTES SERVICE DATE: 01/20/2018 Subjective [...] O2 Therapy: Ventilator IANDO: Date 01/19/18699 - 01/20/1865801/20/18699 - 01/21/18 0659 Shift 1388-5788 9568-8480 7621-1913 24 Hour Total 5408-4749 5607-5628 2226-7335 24 Hour Total I N T A K E IV 1565 359 3468 37 37 IVPB 79 79 NS 0.9% 756 41 797 10 10 Calcium IVPB 147 147 Fentanyl Volume 54 25 79 5 5 Dexmedetomidine IV 45 45 NORepinephrine Volume 78 50 128 3 3 Propofol IV 159 208 367 19 19 Ampicillin/Sulbactam (Unasyn) IV 100 200 300 TPN/PPN 4365 476 6795 103 103 TPN 4513 169 3825 103 103 Shift Total 2868 1313 4181 [...] Noted - Ruptured abdominal aortic aneurysm (AAA) ([facility]) 01/12/2018 - Obesity, Class I, BMI 30-34.9 01/16/2018 - Encephalopathy 01/13/2018 - DIC (disseminated intravascular coagulation) ([facility]) 01/12/2018 - Hemorrhagic shock ([facility]) 01/12/2018 - Acute respiratory failure ([facility]) 01/12/2018 - Cardiac arrest ([facility]) 01/12/2018 - Hypernatremia 01/12/2018 - Hypokalemia 01/12/2018 - Hypomagnesemia 01/12/2018 - Hypophosphatemia 01/12/2018 - Hyperchloremia 01/12/2018 - AAA (abdominal aortic aneurysm, ruptured) ([facility]) 01/12/2018 Overview Note: Added automatically from request for surgery [id number] 77 year old male with Ruptured AAA [...] questions or concerns Mon-Tue 6a-5p please page [phone]. After 5pm and on Weekends and Holidays, please page [phone] if in ICU or [phone] if on RNF. Herman Stuton MD 01/20/2018 9:35 AM Signed MICU - [...] labs and imaging results. LABS: Recent Labs 01/20/18344 WBC 14.99* RBC 3.18* HB 9.4* HCT [...] O>I with CRRT UF. CXR reviewed Fifi Coker, RN, RN 01/20/2018 10:31 AM Signed Cont to followto assst with discharge plan. Plan for OR on Sat. 01/21 for attempted closure of surgical wound. Paulo Lovelace APRN.CHAIR INSPECTOR 01/20/2018 1:40 PM Signed MICU - PROGRESS [...] Unresponsive Respiratory/Nursing Documentation: O2 Therapy: Ventilator (01/20/18 1243) Invasive Ventilator Mode: Pressure Regulated Volume Control (01/20/181242) Set Ventilator Respiratory Rate (BPM): 24 (01/20/18 0757) Total Respiratory Rate (BPM): 28 (01/20/18 124) Tidal Volume Set (mL): 480 (01/20/18 124) Exhaled Tidal Volume (mL): 358 (01/20/18 124) Minute Volume (L): 18.1 (01/20/18 124) Peak Inspiratory Pressure (cm H2O): 13 (01/20/18 [...] 40 minutes excluding procedures. SIGNATURE: Paulo Lovelace APRN.[facility] PATIENT NAME: Naveen Akins DATE: January 20, 2018 TIME: 1:29 PM Cely Correa APRN.CNP 01/20/2018 2:32 PM Signed THORACENTESIS NOTE SERVICE DATE: 01/20/2018 SERVICE TIME: 2:15 PM PROCEDURE: Right thoracentesis with Ultrasound guidance DESIGN CHECKER: Cely Correa APRN.CNP REGISTERED ROUTE ASSOCIATE: None PRE - PROCEDURE DIAGNOSIS: Pleural effusion [...] all aspects of it. SIGNATURE: Cely Correa APRN.[employer] PATIENT NAME: Naveen Akins DATE: January 20, 2018 TIME: 2:31 PM PAGER/CONTACT #: [phone] Costa Miguel MD, [facility] 01/22/2018 1:54 PM Signed [facility] - Operative Report SURGEON: Costa Miguel MD PATIENT NAME: NAVEEN AKINS CSN: [id number] DATE OF SURGERY: 01/21/2018 DATE OF : 1940 SEX/AGE: M/77 PATIENT TYPE: I HOSP SVC: LICO LOCATION: [id number] DATE OF SURGERY: 01/21/2018 SURGEON: Costa Miguel MD PREOPERATIVE DIAGNOSIS: Open abdomen. POSTOPERATIVE DIAGNOSIS: Open abdomen. PROCEDURE: Limited abdominal exploration and closure of wound with abdominal wound with retention sutures. REGISTERED ROUTE ASSOCIATE: Dr. Peralta and Dr. Tristen Luz. ANESTHESIA: [...] procedure well. Costa Miguel MD Surgery WJC:modl /[id number] Dionicio Stevens MD 01/21/2018 9:01 AM Signed Vascular Surgery Progress Note SERVICE DATE: 01/21/2018 Vascular AND Thoracic Surgery Service Pager: For questions or concerns Mon-Fri 6a-5p please page [phone]. After 5pm and on Weekends and Holidays, please page [phone] if in ICU or [phone] if on RNF. Subjective SUBJECTIVE: NAEON, resp [...] O2 Therapy: Ventilator IANDO: Date 01/20/18699 - 01/21/1865801/21/18699 - 01/22/18 06 Shift 0182-9769 3171-4767 0394-5602 24 Hour Total 4662-2205 0659-4121 5608-3517 24 Hour Total I N T A K E IV 37 138 539.9 714.9 NS 0.9% 10 31 57 98 Fentanyl Volume 5 23.5 61.5 90 Dexmedetomidine IV 25.5 75 100.5 NORepinephrine Volume 3 30 73.4 106.4 Propofol IV 19 28 73 120 Ampicillin/Sulbactam (Unasyn) IV 200 200 TPN/PPN 103 237 520 860 TPN 103 237 520 860 Shift Total 199 164 8066.9 1574.9 O U T P U T Urine Urine Incontinence/Not Saved 2 x 2 x Tubes 100 8990 618 5193 Drain/Tube Output (Drain/Tube 01/19/18 1015 Midline Abdomen) 50 970 892 2802 Drain/Tube Output (Drain/Tube 01/12/18 Fecal Management System) [...] Noted - Ruptured abdominal aortic aneurysm (AAA) ([facility]) 01/12/2018 - Obesity, Class I, BMI 30-34.9 01/16/2018 - Encephalopathy 01/13/2018 - DIC (disseminated intravascular coagulation) ([facility]) 01/12/2018 - Hemorrhagic shock ([facility]) 01/12/2018 - Acute respiratory failure ([facility]) 01/12/2018 - Cardiac arrest ([facility]) 01/12/2018 - Hypernatremia 01/12/2018 - Hypokalemia 01/12/2018 - Hypomagnesemia 01/12/2018 - Hypophosphatemia 01/12/2018 - Hyperchloremia 01/12/2018 - AAA (abdominal aortic aneurysm, ruptured) ([facility]) 01/12/2018 Overview Note: Added automatically from request for surgery [id number] 77 year old male with Ruptured AAA [...] (01/21/18318) Set Ventilator Respiratory Rate (BPM): 20 (08/18/18 0319) Total Respiratory Rate (BPM): 34 (01/21/18318) Tidal [...] and imaging results. LABS: Recent Labs 01/21/18 04301/20/18 034 WBC 19.46* < > 14.99* RBC 3.12* [...] interval not displayed. ABG: Recent Labs 01/21/18 04301/20/18 2210 01/20/18 1620 PH 7.424 7.421 7.391 [...] BP: Pulse: 76 76 86 74 Resp: Temp: 36.3 ?C (97.3 ?F) TempSrc: Axillary [...] mL (PRECEDEX) 0.2-0.7 mcg/kg/hr INTRAVENOUS CONTINUOUS Paulo (Clinical Applications Manager) Hudock Last Rate: 9.67 mL/hr at 01/21/18 0730 0.4 mcg/kg/hr at 01/21/18 0730 [MAR Hold due to Transfer] Parenteral Nutrition - Adult INTRAVENOUS ONCE TPN (1800 START) H Edwin Dudley Last Rate: 75 mL/hr at 01/21/18 0730 [MAR Hold due to Transfer] carboxymethylcellulose sodium 1- 2 Drop (CELLUVISC) 1-2 Drop BOTH EYES PRN Venkat Paniagua [MAR Hold due to Transfer] polyvinyl alcohol-povidone 1.4- 0.6 % 1 Drop (REFRESH) 1 Drop BOTH EYES QID PRN Paulo (Clinical Applications Manager) Hudock 1 Drop at 01/19/18 2315 [MAR [...] INTRAVENOUS 3 Times weekly with dialysis Ancelmovinaylitaidalmis Godoy 4,000 Units at 01/17/182225 [MAR Hold due to Transfer] heparin 5,000 Units injection 5,000 Units SUBCUTANEOUS q 12 H Christopher (Res) Wally 5,000 Units at 01/20/182037 [MAR [...] January 21, 2018 TIME: 10:10 AM CSN: [id number] Mily Gonzalez, RN, RN 01/21/2018 11:19 AM Signed Post op report given Tristen Luz MD 01/21/2018 11:30 AM Attested Attestation signed by Costa Miguel at 01/21/2018 1:32 PM I was present for the critical and coleman portions of the surgery and I was immediately available to provide assistance. Costa Miguel MD, [facility] BRIEF OPERATIVE / PROCEDURE NOTE LOG ID: [id number] SURGERY/PROCEDURE DATE: 01/21/2018 INCISION/PROCEDURE START TIME: 10:43 AM INCISION CLOSE/PROCEDURE END TIME: 11:17 AM SURGEON(S)/PROCEDURALIST(S) AND REGISTERED ROUTE ASSOCIATE(S): Surgeon(s) and Role: * Costa Miguel - Primary * Tristen (ResLisette Luz - Resident - Assisting * Emilie (Res) Kathryn - Resident - Assisting No Additional Staff [...] 11:29 AM PAGER/CONTACT #: [phone] Paulo Lovelace APRN.CHAIR INSPECTOR 01/21/2018 12:18 PM Signed MICU - PROGRESS [...] Invasive Ventilator Mode: Pressure Regulated Volume Control (01/21/181140) Set Ventilator Respiratory Rate (BPM): 20 (01/21/18 114) Total Respiratory Rate (BPM): 20 (01/21/18 114) Tidal Volume Set (mL): 480 (01/21/18 114) Exhaled Tidal Volume (mL): 470 (01/21/181140) Minute [...] 30 minutes excluding procedures. SIGNATURE: Paulo Lovelace APRN.CHAIR INSPECTOR PATIENT NAME: Naveen Akins DATE: January 21, [...] 21, 2018 TIME: 12:05 PM PAGER/CONTACT #: [phone] Tracey De La Fuente, RN, RN 01/21/2018 12:49 PM Signed CRRT restarted using same orders after pt returned form OR. M100 dialyzer. Access via left neck temp HD cath. starting TMP 101. Report to Jose Stevens MD 01/22/2018 8:19 AM Attested Attestation signed by Марина De Anda at 01/22/2018 10:32 AM [facility] STAFF PHYSICIAN NOTE OF PERSONAL INVOLVEMENT IN [...] questions or concerns Mon-Fri 6a-5p please page [phone]. After 5pm and on Weekends and Holidays, please page [phone] if in ICU or [phone] if on RNF. Subjective SUBJECTIVE: Mild hypotension [...] O2 Therapy: Ventilator IANDO: Date 01/21/18699 - 01/22/18 0659 01/22/18699 - 01/23/18 0659 Shift 0277-3174 8838-9778 7657-0080 24 Hour Total 3964-4234 1802-0298 0921-8997 24 Hour Total I N T A [...] Feed/Drain 01/12/18 0100) 30 30 Dialysis 1769 2656 431 0007 Dialysis Output (Ultrafiltration) 1769 6978 270 9407 Shift Total 1874 1820 691 3332 Weight (kg) 94.1 94.1 94.1 94.1 94.1 [...] Noted - Ruptured abdominal aortic aneurysm (AAA) ([facility]) 01/12/2018 - Obesity, Class I, BMI 30-34.9 01/16/2018 - Encephalopathy 01/13/2018 - DIC (disseminated intravascular coagulation) ([facility]) 01/12/2018 - Hemorrhagic shock ([facility]) 01/12/2018 - Acute respiratory failure ([facility]) 01/12/2018 - Cardiac arrest ([facility]) 01/12/2018 - Hypernatremia 01/12/2018 - Hypokalemia 01/12/2018 - Hypomagnesemia 01/12/2018 - Hypophosphatemia 01/12/2018 - Hyperchloremia 01/12/2018 - AAA (abdominal aortic aneurysm, ruptured) ([facility]) 01/12/2018 Overview Note: Added automatically from request for surgery [id number] 77 year old male with Ruptured AAA [...] with CRRT UF. Will d/w Dr. Herman Suttno MD 01/22/2018 11:16 AM Addendum MICU - [...] fluid, goal 100cc/hr spoke with Dr Devi Levophed Fentanyl ?Drip for pain Wean off propofol [...] AM Previous Version [facility], [facility] 01/22/2018 4:17 PM Signed Wound without issue. Further care per primary service. Costa Miguel MD, [facility] Chaplain Will Chaplain 01/23/2018 5:39 AM Signed [facility]ARE Spiritual Care Visit- Brief Note Name: Naveen Akins Date: January 23, 2018 Notes: Patient's family in 3rd floor waiting room and requested prayer. Patient's mother, sisters and son. Follow up needed. Crack Off Person Signature: Chaplain Suman To contact the [facility] Care Department: Please call [phone] or Page the On-Call at pager [phone] Thank you for the opportunity to be [...] questions or concerns Mon-Fri 6a-5p please page [phone]. After 5pm and on Weekends and Holidays, please page [phone] if in ICU or [phone] if on RNF. Subjective SUBJECTIVE: NAEON, mildly [...] 0659 01/23/18 07 - 01/24/18 0659 Shift 0080-6974 7975-7163 8440-6072 24 Hour Total 7778-0246 6256-5756 4125-8046 24 Hour Total I N T A K E IV 581 224 805 NS 0.9% 30 53 83 Calcium IVPB 250 250 Fentanyl Volume 33 14 47 Dexmedetomidine IV 110 47 157 NORepinephrine Volume 21 8 29 Propofol IV 37 2 39 Ampicillin/Sulbactam (Unasyn) IV 100 100 200 TPN/PPN 503 324 827 TPN 503 324 827 Shift Total 9957 216 9364 O U T P U T Drains 10 10 Negative Pressure: Output (mL) (Negative Pressure Wound Therapy 01/12/18 0749 Abdomen) 10 10 Dialysis 1452 0087 296 7500 Dialysis Output (Ultrafiltration) 1452 7057 385 5884 Shift Total 1452 5791 203 3980 Weight (kg) 89 89 86.2 86.2 86.2 [...] Noted - Ruptured abdominal aortic aneurysm (AAA) ([facility]) 01/12/2018 - Obesity, Class I, BMI 30-34.9 01/16/2018 - Encephalopathy 01/13/2018 - DIC (disseminated intravascular coagulation) ([facility]) 01/12/2018 - Hemorrhagic shock ([facility]) 01/12/2018 - Acute respiratory failure ([facility]) 01/12/2018 - Cardiac arrest ([facility]) 01/12/2018 - Hypernatremia 01/12/2018 - Hypokalemia 01/12/2018 - Hypomagnesemia 01/12/2018 - Hypophosphatemia 01/12/2018 - Hyperchloremia 01/12/2018 - AAA (abdominal aortic aneurysm, ruptured) ([facility]) 01/12/2018 Overview Note: Added automatically from request for surgery [id number] 77 year old male with Ruptured AAA [...] Chaplain Will Chaplain 01/23/2018 8:04 AM Signed [facility] Spiritual Care Visit- Brief Note Name: Naveen Akins Date: January 23, 2018 Notes: Per request of patient's family I prayed for the patient this morning. Crack Off Person Signature: Chaplain Suman To contact the Spiritual Care Department: Please call [phone] or Page the On-Call Crack Off Person at pager [phone] Thank you for the opportunity to be [...] on command. Respiratory/Nursing Documentation: O2 Therapy: Ventilator (01/23/18 08) Invasive Ventilator Mode: Pressure Regulated Volume Control (01/23/18730) Set Ventilator Respiratory Rate (BPM): 18 (01/23/18799) Total Respiratory Rate (BPM): 25 (01/23/18730) Tidal Volume Set (mL): 480 (01/23/18799) Exhaled Tidal Volume (mL): 752 (01/23/18730) Minute Volume (L): 20.1 (01/23/18730) Peak Inspiratory Pressure (cm H2O): 15 (01/23/18 08) PEEP/CPAP (cm H2O): 8 (01/23/18 08) HEMODYNAMIC DATA: NUTRITION: Enteral Feeds: No NPO [...] 23, 2018 TIME: 10:38 AM PAGER/CONTACT #: [phone] Previous Version Viry Mosher RD, LD, RD [...] 01/23/2018 Nutritional Status: NO MALNUTRITION IDENTIFIED per KRISHAN 01/16/18 ? ? NUTRITION CARE PLAN: ? [...] cc/hr is goal, start at 10--> provides 6002-2744 calories and 113-135 pro Diprivan @ 10 [...] CA 7.4* 7.6* -- 7.2* Viry Mosher, KRISHAN, LD Pager: [phone] Increments: 3 Previous Version Lorrie Bo, RN, RN 01/23/2018 1:13 PM Signed CARE [...] 23, 2018 TIME: 1:00 PM PAGER/CONTACT #: [phone] Rosanna Talbert MD 01/23/2018 3:24 PM Signed Nephrology Progress Note Following for TERENCE. Pt is intubated/sedated. Cannot obtain ROS. Current Inpatient Medications: Current Facility-Administered Medications Ordered in Epic: Parenteral Nutrition - Adult INTRAVENOUS ONCE TPN (1800 START) H Edwin Awashley Parenteral Nutrition - Adult INTRAVENOUS ONCE TPN (1800 START) H Edwin Dudley Last Rate: 75 mL/hr at 01/22/18 1800 senna leaf extract 176 mg/5 mL 528 mg 15 mL OROGASTRIC BID Dionicio (Res) Stevens 528 mg at 01/23/18 0923 dexmedetomidine 400 mcg in NaCl 0.9% 100 mL (PRECEDEX) 0.2- 0.7 mcg/kg/hr INTRAVENOUS CONTINUOUS Paulo (Clinical Applications Manager) Hudock Last Rate: 9.67 mL/hr at 01/23/18 0604 0.4 mcg/kg/hr at 01/23/18 0604 carboxymethylcellulose sodium 1-2 Drop (CELLUVISC) 1-2 Drop BOTH EYES PRN Venkat Paniagua 2 Drop at 01/22/18 2049 polyvinyl alcohol-povidone 1.4-0.6 % 1 Drop (REFRESH) 1 Drop BOTH EYES QID PRN Paulo (Clinical Applications Manager) Hudock 1 Drop at 01/21/18 1641 propofol [...] with dialysis Troy Belleari 4,000 Units at 01/22/18 2049 heparin 5,000 [...] mL/hr at 01/22/18 2154 100 mcg/hr at 01/22/182153 pantoprazole 40 mg injection (PROTONIX) 40 mg [...] do not hesitate to contact me at [phone] if there is any question or concern. [...] old male transferred in critical condition from [facility] with diagnosed ruptured AAA. Patient was life-flighted to [facility], intubated at outside facility. Per transport, patient [...] SIGNATURE: Noel Garcia MD PATIENT NAME: Naveen Aknis DATE: January 23, 2018 TIME: 10:37 PM PAGER/CONTACT #: [phone] Previous Version Venkat Paniagua MD 01/27/2018 9:08 AM Signed [facility] - Operative Report SURGEON: Venkat Paniagua MD PATIENT NAME: NAVEEN AKINS [facility]: [id number] DATE OF SURGERY: 01/16/2018 DATE OF : 1940 SEX/AGE: M/77 PATIENT TYPE: I HOSP SVC: LICO LOCATION: [id number] DATE OF SURGERY: 01/16/2018 SURGEON: Venkat Paniagua MD The patient is an inpatient. PREOPERATIVE DIAGNOSIS: Status post ruptured aneurysm with open abdomen. POSTOPERATIVE DIAGNOSIS: Status post ruptured aneurysm with open abdomen. PROCEDURE: Exploratory laparotomy, change of wound vacuum- assisted closure, and abdominal washout. REGISTERED ROUTE ASSOCIATE: Kannan Felder MD and Lotus Schuler SA. [...] critical condition. Venkat Paniagua MD Vascular Surgery HORACEW:modl /[id number] KRISTYN RAY 01/26/2018 3:33 PM Addendum MEDICATION HISTORY AND MEDICATION RECONCILIATION Patient Name:Tom Akins : 1940 Source of history:Family: Reliability of source: Only knew pharmacy he fills at ([facility] in [place]- called) Medication Nonadherence Identified: Unable to verify at this time The above information represents the best possible medication history: Yes Reconciliation completed? Yes All [employer] medications addressed by LIP Additional comments: Unable to discuss with Shelly (spouse) at this time. Most recent medication picked up was a 7 day course of Augmentin BID on 01/11/18. Allergies: ALLERGIES No Known Allergies Preferred Pharmacy: [facility] ([phone]) Current [employer] Medications: Prior to Admission medications as of [...] questions or concerns Mon-Fri 6a-5p please page [phone]. After 5pm and on Weekends and Holidays, please page [phone] if in ICU or [phone] if on RNF. Subjective SUBJECTIVE: Levo restarted [...] 0659 01/24/18 07 - 01/25/18 0659 Shift 6017-3476 3146-8001 5780-6488 24 Hour Total 0784-2442 8217-2359 6619-0547 24 Hour Total I N T A [...] Feed/Drain 01/12/18 0100) 60 60 Shift Total 896.4 802.2 1009.8 2708.4 O U T P U T Urine 100 150 250 Void (ml) 100 150 250 Urine Incontinence/Not Saved 3 x 3 x Tubes 0 150 35 185 0 0 Drain/Tube Output (Drain/Tube 01/19/18 1015 Midline Abdomen) 0 0 10 10 0 0 Output (GI Feed/Drain 01/12/18 0100) 150 25 175 # of BMs Number of BMs 0 x 0 x 0 x Dialysis 1434 076 042 3381 93 93 Dialysis Output (Ultrafiltration) 1434 755 833 8169 93 93 Shift Total 1434 448 865 7184 93 93 Weight (kg) 86.2 86.2 83.6 [...] Noted - Ruptured abdominal aortic aneurysm (AAA) ([facility]) 01/12/2018 - Obesity, Class I, BMI 30-34.9 01/16/2018 - Encephalopathy 01/13/2018 - DIC (disseminated intravascular coagulation) ([facility]) 01/12/2018 - Hemorrhagic shock ([facility]) 01/12/2018 - Acute respiratory failure ([facility]) 01/12/2018 - Cardiac arrest ([facility]) 01/12/2018 - Hypernatremia 01/12/2018 - Hypokalemia 01/12/2018 - Hypomagnesemia 01/12/2018 - Hypophosphatemia 01/12/2018 - Hyperchloremia 01/12/2018 - AAA (abdominal aortic aneurysm, ruptured) ([facility]) 01/12/2018 Overview Note: Added automatically from request for surgery [id number] 77 year old male with Ruptured AAA [...] and supportive measures. Previous Version Paulo Lovelace APRN.CHAIR INSPECTOR 01/24/2018 10:17 AM Signed MICU - PROGRESS [...] 35 minutes excluding procedures. SIGNATURE: Paulo Lovelace APRN.CHAIR INSPECTOR PATIENT NAME: Naveen Akins DATE: January 24, 2018 TIME: 10:02 AM Chaplain Serna Chaplain 01/24/2018 10:46 AM Signed [facility] Spiritual Care Visit- Brief Note Name: Naveen Akins Date: January 24, 2018 Notes: Stopped by pt's rm; pt's sone busy w/staff. Silent prayer outside door. Will follow up w/fam/pt later on. Crack Off Person Signature: Chaplain Daphne To contact the Spiritual Care Department: Please call [phone] or Page the On-Call Crack Off Person at pager [phone] Thank you for the opportunity to be [...] 24, 2018 TIME: 10:44 AM PAGER/CONTACT #: [phone] Dorcas Palafox MD 01/24/2018 11:11 AM Signed [...] 24, 2018 TIME: 10:47 AM PAGER/CONTACT #: [phone] Previous Version Viry Mosher RD, SARA, RD 01/24/2018 11:19 AM Attested Attestation signed [...] 1.5 at 50-60 cc/hr is goal--> provides 2898-9571 calories and 113-135 pro , currently at [...] Labs 01/23/18 1655 PREALB 18.6* Viry Mosher, RD, LD, [facility] Pager: [phone] Increments: 3 Chaplain Serna Chaplain 01/24/2018 11:45 AM Signed [facility]UAL[facility]ARE Spiritual Care Visit- Brief Note Name: Naveen Akins Date: January 24, 2018 Notes: attempted to check in w/pt's fam--everyone was asleep except for his dtr, who was on the phone--we made eye contact and acknowledged one another.SC will continue to follow as needed. Crack Off Person Signature: Chaplain Daphne To contact the Spiritual Care Department: Please call [phone] or Page the On-Call Crack Off Person at pager [phone] Thank you for the opportunity to be [...] solution (DUONEB) 3 mL INHALATION QID Paulo (Clinical Applications Manager) Hudock 3 mL at 01/24/18 1125 dexmedetomidine [...] 1 Drop BOTH EYES QID PRN Paulo (Clinical Applications Manager) Hudock 1 Drop at 01/24/18 0838 heparin [...] do not hesitate to contact me at [phone] if there is any question or concern. [...] time indicated below. Time may include specific [facility]-approved services including review of chest radiography, interpretation of cardiac function measurements, ECGs, pulse oximetry, ventilator management, and vascular access procedures as necessary, but does not include time spent teaching or procedures billed separately. ?? Critical care time: 35?minutes. ?? SIGNATURE: Brad Castillo MD PATIENT NAME: Naveen Akins DATE: January 24, 2018 TIME: 2:13 PM PAGER/CONTACT #:?[phone] Margaret Townsend RN, RN 01/24/2018 2:22 PM Addendum Wound Care Consult Team Assessment Note: PATIENT NAME: Naveen Akins Reason for Assessment: Abdominal wound, wound vac Assessment: Patient seen today by Kaylene Magana NP and RN, see Wound Expert for detailed [...] by: SHEN LORENZO Authorized by: SHEN LORENZO Consent/Panna Maria Protocol Written Consent Obtained: Yes Sign In [...] to clinical factors necessitating an emergent procedure [facility] Central Line Insertion Checklist Utilized: yes [...] Family is thankful for prayer and visits. Crack Off Person Signature: Chaplain Rosendo To contact the Spiritual Care Department: Please call [phone] or Page the On-Call Crack Off Person at pager [phone] Thank you for the opportunity to be [...] labs and imaging results. LABS: Recent Labs 01/25/1842401/24/1841901/23/18 1020 WBC 15.78* < > 13.44* < [...] this interval not displayed. ABG: Recent Labs 01/25/1842401/24/18 22301/24/18 1820 PH 7.466* 7.443 7.420 PO2 [...] 25, 2018 TIME: 8:52 AM PAGER/CONTACT #: [phone] Previous Version Donnell Velazco RN, RN 01/25/2018 10:24 AM Signed Nursing Progress Note Patient Name: Naveen Akins Patient Location: [place] [address] [address]* Daily Note: Daily supervision for CRRT tx [...] INTRAVENOUS q 6 H Dorcas Mike Decoy midazolam 100 mg in D5W 100 mL (VERSED) 1-10 mg/hr INTRAVENOUS CONTINUOUS Dorcas Mike Decoy Last Rate: 6 mL/hr at 01/25/18 0800 [...] 1 Drop BOTH EYES QID PRN Paulo (Clinical Applications Manager) Radu 1 Drop at 01/24/18 1511 heparin 1,000 [...] Shen Lorenzo Last Rate: 800 mL/hr at 08/22/18 0835 5,000 mL at 01/25/18 0835 dextrose [...] mL 0-200 mcg/hr INTRAVENOUS CONTINUOUS Dorcas Mike Javy Last Rate: 7.5 mL/hr at 01/25/18 0800 [...] do not hesitate to contact me at [phone] if there is any question or concern. Rosanna Talbert MD (Shen Lorenzo) Viyr Mosher, RD, LD, RD 01/25/2018 11:53 AM [...] Impact 1.5 at 50-60 ?cc/hr is goal-->?provides 8529-8527 calories and 113-135 pro , currently at [...] 1655 PREALB 18.6* Viry Mosher RD, LD, [facility] Pager: [phone] Increments: 3 Dionicio Stevens MD 01/25/2018 1:23 PM Attested Attestation signed by Venkat Paniagua at 01/27/2018 9:29 AM I saw and evaluated the patient. Discussed with the resident and agree with resident's findings and plan as documented in the resident's note. Vascular Surgery Progress Note SERVICE DATE: 01/25/2018 Vascular AND Thoracic Surgery Service Pager: For questions or concerns Mon-Fri 6a-5p please page [phone]. After 5pm and on Weekends and Holidays, [...] O2 Therapy: Ventilator IANDO: Date 01/24/18699 - 01/25/18 0659 01/25/18699 - 01/26/18 0659 Shift 6551-9061 4128-8426 2130-3399 24 Hour Total 9858-6814 7586-8095 5864-6781 24 Hour Total I N T A [...] 0 x 0 x 0 x Dialysis 686 417 6986 2350 976 976 Dialysis Output (Ultrafiltration) 321 397 8369 2350 976 976 Shift Total 028 518 7917 2570 1196 1196 Weight (kg) 83.6 83.6 [...] Noted - Ruptured abdominal aortic aneurysm (AAA) ([facility]) 01/12/2018 - Obesity, Class I, BMI 30-34.9 01/16/2018 - Encephalopathy 01/13/2018 - DIC (disseminated intravascular coagulation) ([facility]) 01/12/2018 - Hemorrhagic shock ([facility]) 01/12/2018 - Acute respiratory failure ([facility]) 01/12/2018 - Cardiac arrest ([facility]) 01/12/2018 - Hypernatremia 01/12/2018 - Hypokalemia 01/12/2018 - Hypomagnesemia 01/12/2018 - Hypophosphatemia 01/12/2018 - Hyperchloremia 01/12/2018 - AAA (abdominal aortic aneurysm, ruptured) ([facility]) 01/12/2018 Overview Note: Added automatically from request for surgery [id number] 77 year old male with Ruptured AAA [...] ICU or 2174 if on RNF. Lorrie Bo, RN, RN 01/25/2018 1:26 PM Signed CARE [...] pursuit of trach (informed by nsg and buyer tobacco head) which they seem agreeable to. Anticipate ltach [...] 25, 2018 TIME: 1:17 PM PAGER/CONTACT #: [phone] Paulo Lovelace APRN.CHAIR INSPECTOR 01/25/2018 4:08 PM Signed MICU - PROGRESS [...] (01/25/181138) Set Ventilator Respiratory Rate (BPM): 18 (01/25/181138) Total Respiratory Rate (BPM): 38 (01/25/181138) Tidal Volume Set (mL): 480 (01/25/18 113) Exhaled Tidal Volume (mL): 470 (01/25/18 113) Minute Volume (L): 15.9 (01/25/18 113) Peak Inspiratory Pressure (cm H2O): 22 (01/25/18 113) PEEP/CPAP (cm H2O): 5 (01/25/181138) HEMODYNAMIC DATA: Reviewed NUTRITION: Enteral Feeds: TPN NPO DATA: Diagnostic tests reviewed for today's visit, films/specimens were personally reviewed by me: Most recent labs and imaging results. LABS: Recent Labs 08/22/42401/24/18 0420 01/23/18 1020 WBC 15.78* < > [...] this interval not displayed. ABG: Recent Labs 01/25/1842401/24/18 2230 01/24/18 1820 PH 7.466* 7.443 7.420 [...] 40 minutes excluding procedures. SIGNATURE: Paulo Lovelace APRN.CHAIR INSPECTOR PATIENT NAME: Naveen Akins DATE: January 25, [...] 25, 2018 9:37 PM [facility] #: Pager: [phone] Chaplain Barbosa Chaplain 01/25/2018 10:21 PM Signed [facility]UAL[facility]ARE Spiritual Care Visit- Brief Note Name: Naveen Akins Date: January 25, 2018 Notes: While making rounds visited Pt's family in 3rd floor WR. Family stated they are praying for a miracle. Crack Off Person provided spiritual comfort and supportive presence. Per families request reconciliation specialist offered bedside prayers with Pt's RN present. Pt's RN indicated the Pt's condition is critical. Crack Off Person provided SC/supprt and encouragement for Pt's RN. Crack Off Person later returned and presented Pt's family with a Prayer [place]. Pt's family grateful for spiritual care/support, chaplains availability and prayer blanket. Crack Off Person to remain available. Crack Off Person Signature: Chaplain Familia To contact the Spiritual Care Department: Please call [phone] or Page the On-Call Crack Off Person at pager [phone] Thank you for the opportunity to be of service. This is an electronically created document. IF PRINTED, PLEASE DO NOT REMOVE FROM THE CHART OR MODIFY PRINTED COPY. Elder Garnda MD 01/25/2018 11:46 PM Signed GNR from sputum in 01/24. Sputum is thick. Completed a prolonged course of IV ABx. Will start Zosyn. Elder Granda MD 01/25/2018 11:46 PM Dionicio Stevens MD 01/26/2018 11:21 AM Attested Attestation signed by Vnekat Paniagua at 01/27/2018 9:18 AM Patient was [...] Ventilator IANDO: Date 01/25/18699 - 01/26/1865801/26/18699 - 01/27/1859 Shift 1987-1960 3820-0765 4852-6893 24 Hour Total 7130-8671 0593-1777 7309-5993 24 Hour Total I N T A [...] 01/12/18 0749 Abdomen) 0 0 Tubes 220 4751 511 1813 Drain/Tube Output (Drain/Tube 01/19/18 1015 Midline Abdomen) 20 10 0 30 Output (GI Feed/Drain 01/12/18 0100) 200 0595 145 5330 # of BMs Number of BMs 0 x 2 x 0 x 2 x Dialysis 1309 121 404 4506 Dialysis Output (Ultrafiltration) 1309 485 041 0227 Shift Total 1529 7895 043 3765 Weight (kg) 84 84 84 84 84 [...] Noted - Ruptured abdominal aortic aneurysm (AAA) ([facility]) 01/12/2018 - Obesity, Class I, BMI 30-34.9 01/16/2018 - Encephalopathy 01/13/2018 - DIC (disseminated intravascular coagulation) (HCC) 01/12/2018 - Hemorrhagic shock ([facility]) 01/12/2018 - Acute respiratory failure ([facility]) 01/12/2018 - Cardiac arrest ([facility]) 01/12/2018 - Hypernatremia 01/12/2018 - Hypokalemia 01/12/2018 - Hypomagnesemia 01/12/2018 - Hypophosphatemia 01/12/2018 - Hyperchloremia 01/12/2018 - AAA (abdominal aortic aneurysm, ruptured) ([facility]) 01/12/2018 Overview Note: Added automatically from request for surgery [id number] 77 year old male with Ruptured AAA [...] Intake/Output Summary (Last 24 hours) at 01/26/18 0970 Last data filed at 01/26/18 0745 Gross [...] Neurologic: Sedated Respiratory/Nursing Documentation: O2 Therapy: Ventilator (01/26/18) Invasive Ventilator Mode: Pressure Regulated Volume Control (01/26/18834) Set Ventilator Respiratory Rate (BPM): 18 (01/26/1835) Total Respiratory Rate (BPM): 22 (01/26/18834) Tidal Volume Set (mL): 480 (01/26/18834) Exhaled Tidal Volume (mL): 707 (01/26/18834) Minute Volume (L): 10.7 (01/26/1835) Peak Inspiratory Pressure (cm H2O): 17 (01/26/1835) PEEP/CPAP (cm H2O): 5 (01/26/1835) HEMODYNAMIC DATA: NUTRITION: Enteral Feeds: No NPO [...] 26, 2018 TIME: 9:27 AM PAGER/CONTACT #: [phone] Chaplain Daphne, Crack Off Person 01/26/2018 10:39 AM Signed SPIRITUALCARE Spiritual Care Visit- Brief [...] at his bedside--conversation about compassion and healing. SC will continue to follow this patient and fam as appropriate. Crack Off Person Signature: Chaplain Daphne To contact the Spiritual Care Department: Please call [phone] or Page the On-Call Crack Off Person at pager [phone] Thank you for the opportunity to be of service. This is an electronically created document. IF PRINTED, PLEASE DO NOT REMOVE FROM THE CHART OR MODIFY PRINTED COPY. Paulo Lovelace APRN.CHAIR INSPECTOR 01/26/2018 10:47 AM Signed MICU - PROGRESS [...] H2O): 17 (01/26/18834) PEEP/CPAP (cm H2O): 5 (01/26/18 0835) HEMODYNAMIC DATA: Reviewed NUTRITION: Enteral Feeds: TPN [...] 40 minutes excluding procedures. SIGNATURE: Paulo Lovelace APRN.CHAIR INSPECTOR PATIENT NAME: Naveen Akins DATE: January 26, 2018 TIME: 10:41 AM Tracey De La Fuente RN, RN 01/26/2018 11:19 AM Signed CRRT circuit changed due to clotting filter. Access via right femoral temp HD cath. PBP, dialysate and post rep. At 800ml/hr. BFR at 150ml/min. Report to Jose GARDNER. Viry Mosher, KRISHAN, LD, RD 01/26/2018 11:53 AM Attested Attestation [...] 1655 PREALB 18.6* Viry Mosher, KRISHAN, LD, CNSC Pager: [phone] Increments: 3 Troy Godoy MD 01/26/2018 12:55 [...] Chaplain Serna Chaplain 01/26/2018 2:01 PM Signed SPIRITUALCARE Spiritual Care Visit- Brief [...] we are here if they need us. Signature: Chaplain Daphne To contact the Spiritual Care Department: Please call [phone] or Page the On-Call at pager [phone] Thank you for the opportunity to be [...] Chaplain Saenz Chaplain 01/26/2018 8:28 PM Signed SPIRITUALCARE Spiritual Care Visit- Brief Note Name: Naveen Akins Date: January 26, 2018 Notes: Pre-Surg visit attempted; staff working with pt; no family in room Crack Off Person Signature: Chaplain Dany To contact the [facility] Care Department: Please call [phone] or Page the On-Call Crack Off Person at pager [phone] Thank you for the opportunity to be [...] Therapy: Ventilator IANDO: Date 01/26/18 07 - 01/27/18 0659 01/27/18 07 - 01/28/18 0659 Shift 5452-6005 4317-8118 6365-0267 24 Hour Total 7478-0857 4825-1716 4844-5612 24 Hour Total I N T A [...] x 0 x 0 x Dialysis 976 751 984 1325 Dialysis Output (Ultrafiltration) 976 345 582 4377 Shift Total 1076 367 643 6385 Weight (kg) 84 84 82.2 82.2 82.2 [...] Noted - Ruptured abdominal aortic aneurysm (AAA) ([facility]) 01/12/2018 - Obesity, Class I, BMI 30-34.9 01/16/2018 - Encephalopathy 01/13/2018 - DIC (disseminated intravascular coagulation) ([facility]) 01/12/2018 - Hemorrhagic shock ([facility]) 01/12/2018 - Acute respiratory failure ([facility]) 01/12/2018 - Cardiac arrest ([facility]) 01/12/2018 - Hypernatremia 01/12/2018 - Hypokalemia 01/12/2018 - Hypomagnesemia 01/12/2018 - Hypophosphatemia 01/12/2018 - Hyperchloremia 01/12/2018 - AAA (abdominal aortic aneurysm, ruptured) (HCC) 01/12/2018 Overview Note: Added automatically from request for surgery [id number] 77 year old male with Ruptured AAA [...] 01/26/18699 - 01/27/1865801/27/18699 - 01/28/18 0659 Shift 8565-3199 1298-9771 2184-6302 24 Hour Total 8631-9141 2507-5976 5067-9996 24 Hour Total I N T A [...] 0 25 10 35 Output (GI Feed/Drain ) 100 325 425 850 # of BMs Number of BMs 0 x 0 x 0 x 0 x Dialysis 976 237 710 0522 Dialysis Output (Ultrafiltration) 976 366 316 4653 Shift Total 1076 467 990 7215 Weight (kg) 84 84 82.2 82.2 82.2 [...] Noted - Ruptured abdominal aortic aneurysm (AAA) ([facility]) 01/12/2018 - Obesity, Class I, BMI 30-34.9 01/16/2018 - Encephalopathy 01/13/2018 - DIC (disseminated intravascular coagulation) ([facility]) 01/12/2018 - Hemorrhagic shock ([facility]) 01/12/2018 - Acute respiratory failure ([facility]) 01/12/2018 - Cardiac arrest ([facility]) 01/12/2018 - Hypernatremia 01/12/2018 - Hypokalemia 01/12/2018 - Hypomagnesemia 01/12/2018 - Hypophosphatemia 01/12/2018 - Hyperchloremia 01/12/2018 - AAA (abdominal aortic aneurysm, ruptured) ([facility]) 01/12/2018 Overview Note: Added automatically from request for surgery [id number] 77 year old male with Ruptured AAA [...] questions or concerns Mon-Fri 6a-5p please page [phone]. After 5pm and on Weekends and Holidays, please page [phone] if in ICU or [phone] if on RNF. Abbi Mtz, RN, RN 01/27/2018 10:03 AM Signed WOUND CARE NURSE PROGRESS NOTE SERVICE DATE: 01/27/2018 SERVICE TIME: 939 REASON FOR VISIT: Wound TIME SPENT (minutes): 30 Patient seen today by DINESH AndradeC, and siva senior climate advisor. Wound vac dressing to midline abdomen changed. [...] January 27, 2018 TIME: 10:01 AM CONTACT#: [id number] Lupe Cheng RN, RN 01/27/2018 10:38 AM [...] needs. SIGNATURE: Lupe Cheng RN PATIENT NAME: Naeven Akins DATE: January 27, 2018 TIME: 10:34 AM PAGER/CONTACT #: [phone] Dorcas Palafox MD 01/27/2018 11:21 AM Signed [...] Gallstone Pancreatitis Ruptured Abdominal Aortic Aneurysm (Aaa) ([facility]) Dic (Disseminated Intravascular Coagulation) ([facility]) Hemorrhagic Shock ([facility]) Acute Respiratory Failure ([facility]) Cardiac Arrest ([facility]) Hypernatremia Hypokalemia Hypomagnesemia Hypophosphatemia Hyperchloremia Encephalopathy Aaa (Abdominal Aortic Aneurysm, Ruptured) ([facility]) Obesity, Class I, Bmi 30-34.9 1. Hypoxic [...] 27, 2018 TIME: 10:56 AM PAGER/CONTACT #: [phone] Previous Version Janell Fabian RN, RN 01/27/2018 11:03 AM Signed Nursing Progress Note Patient Name: Naveen Akins Patient Location: [place] [address] [address]* Daily Note:0845: Pre-surg nurse called for report [...] the weekend. This note was completed by: MAGALY Jose APRN.CHAIR INSPECTOR 01/27/2018 11:20 AM Addendum MICU - PROGRESS [...] 40 minutes excluding procedures. SIGNATURE: Paulo Lovelace APRN.CHAIR INSPECTOR PATIENT NAME: Naveen Akins DATE: January 27, [...] 01/26/18 1050 PREALB 17.0* Viry Mosher RD, [place], [facility] Pager: [phone] Increments: 3 OPERATIVE NO Observed: 01/12/2018 Status: COMPLETED Source: [place] 12:00 AM [facility] OTHER CAMPUS REPOSITORY O ID: [id number] Author: Venkat Paniagua Service: Vascular Surgery Author Type: Physician Type: Operative Report Filed: 01/15/2018 12:16 PM Note Text: [facility] - Operative Report SURGEON: Venkat Paniagua MD PATIENT NAME: NAVEEN AKINS CSN: [id number] DATE OF SURGERY: 01/12/2018 DATE OF : 1940 SEX/AGE: M/77 PATIENT TYPE: I HOSP SVC: LICO LOCATION: [id number] DATE OF SURGERY: 01/12/2018 SURGEON: Venkat Paniagua MD PREOPERATIVE DIAGNOSES: Ruptured abdominal aortic aneurysm, preoperative cardiac arrest. POSTOPERATIVE DIAGNOSES: Ruptured abdominal aortic aneurysm, preoperative cardiac arrest. PROCEDURE: Cardiopulmonary resuscitation, repair of ruptured abdominal aortic aneurysm using an 18 mm x 9 mm Hemashield graft, application of ABThera device. REGISTERED ROUTE ASSOCIATE: Dr. Melody Dixon SA. ANESTHESIA: General. HISTORY: This patient, we were notified of about 45 minutes ago when he was at [facility], found to be hypotensive and [...] transfusion protocol being performed. He had a Real infuser, infusing large amounts of blood. He [...] near future. Venkat Paniagua MD Vascular Surgery DJW:mika /[id number] OPERATIVE NO Observed: 01/12/2018 Status: COMPLETED Source: [place] 12:00 AM [facility] OTHER CAMPUS REPOSITORY O ID: [id number] Author: Venkat Paniagua Service: Vascular Surgery Author Type: Physician Type: Operative Report Filed: 01/15/2018 12:18 PM Note Text: [facility] - Operative Report SURGEON: Venkat Paniagua MD PATIENT NAME: NAVEEN AKINS CSN: [id number] DATE OF SURGERY: 01/12/2018 DATE OF : 1940 SEX/AGE: M/77 PATIENT TYPE: I HOSP [facility] [place] [facility] LOCATION: [facility] 01/12/2018 SURGEON: Venkat Paniagua MD PREOPERATIVE DIAGNOSES: [...] close monitoring. Venkat Paniagua MD Vascular Surgery HORACEW:mika /[id number] CHEST 1 VIEW Observed: 01/11/2018 Status: F Source: [place] (PORTABLE) 11:55 PM [facility] REPOSITORY [facility] Imaging Services [address] [place] [address] Chest 1 View (Portable) MR#: [id number] Acct: [id number] Name: NAVEEN AKINS Rep #: [id number] : 1940 M 77 From: Ashu Montalvo MD PCP: Jack Olmedo MD Status: REG ER Study: Chest 1 View (Portable) Date of Exam: 01/11/18 Exam# [id number] Ordering Dr: Kathy Dill STUDY: X-RAY CHEST [...] , CC: Kathy Dill; Jack Olmedo MD Clinical Trials Nurse: Signed ABDOMEN/PELVIS W IV CONT Observed: 01/11/2018 Status: F Source: [place] ONLY 11:09 PM [facility] REPOSITORY [facility] Imaging Services [address] [place] [address] Abdomen/Pelvis W IV Cont ONLY MR#: [id number] Acct: [id number] Name: NAVEEN AKINS Kaylah Rep #: [id number] : 1940 77 From: David Burr DO PCP: Honorio LOREDO,Jack Status: REG ER Study: Abdomen/Pelvis W IV Cont ONLY Date of Exam: 01/11/18 Exam# [id number] Ordering Dr: Kathy Dill STUDY: CT ABDOMEN [...] conveyed by David Burr DO to [facility]- ED RN, on 01/11/2018 23:57:11 (ET). Electronically Signed: David Burr DO at 23:57 EDT Tel [phone], Service support , CC: Kathy Dill; aJck Olmedo MD Clinical Trials Nurse: Signed CBC W/DIFF, AUTOMATED Collected: 01/11/2018 Status: F Source: [place] 11:00 PM [facility] REPOSITORY TYPE CODE TESTS RESULT OUT OF [...] Lymph 3.83 Performed By: #### L100.0100 #### [facility] [address] [place], [address] PROTHROMBIN TIME W/INR Collected: 01/11/2018 Status: F Source: [place] 11:00 PM [facility] REPOSITORY TYPE CODE TESTS RESULT OUT OF RANGE REFERENCE UNITS LAB L300.4150 11.7-14.9 SECONDS High PROTIME 15.8 LAB L300.4200 Normal INR 1.3 Performed By: #### L300.3900 #### [facility] [address] [place], [address] COMPREHENSIVE METABOLIC Collected: 01/11/2018 Status: F Source: [place] PROFIL 11:00 PM [facility] REPOSITORY TYPE CODE TESTS RESULT OUT OF [...] 7 Performed By: #### L500.4050, L501.4010 #### [facility] [address] [place], [address] TROPONIN-I Collected: 01/11/2018 Status: F Source: [place] 11:00 [facility] REPOSITORY TYPE CODE TESTS RESULT OUT OF RANGE REFERENCE UNITS LAB L501.4010 <0.045 ng/mL Normal < 0.015 TROPONIN-I Result Comment: TROPONIN-I EXPECTED VALUES <0.045 Negative 0.045 - 0.590 Consistent with Cardiac Damage > OR = 0.600 Critical Value Not every elevated troponin is indicative of PA. These values should be used with clinical judgement in examining the patient's clinical picture for diagnosis. To establish a diagnosis of PA versus myocardial injury, there must be a demonstrated rise and/or fall in the troponin values, in addition to ischemic symptoms, EKG changes, new regional wall motion abnormality, and/or angiographical evidence. PLEASE NOTE: REFERENCE RANGES EDITED 17 Performed By: #### L500.4050, L501.4010 #### [facility] [address] [place], [address] RC Collected: 01/11/2018 Status: F Source: [place] 11:00 [facility] REPOSITORY TYPE CODE TESTS RESULT OUT OF REFERENCE UNITS RANGE LAB U100.0000 [id number] TRANSFUSED PRODUCT: T AND S with Crossmatch, Red Cells COUNT: 4 Performed By: #### U100.0000 #### Non-[facility] - refer to report for specific site TYPE AND SCREEN Collected: 01/11/2018 Status: F Source: [place] 11:00 [facility] REPOSITORY Order Comment: CMV NEG? N Number [...] NEGATIVE Screen Performed By: #### B101.7450 #### [facility] [address] [place], [address] SURGICAL TISSUE EXAM Observed: 01/11/2018 Status: F Source: [facility] 12:00 AM HEALTH SYSTEM REPOSITORY Test performed at [place] [address] NAME: NAVEEN AKINS REQUESTING: VENKAT PANIAGUA M.D. [...] which are brown-yellow to red in appearance. [employer] sections are submitted in one cassette, to include potential vessel wall. BMP:loly AMAYA M.D., PATHOLOGIST (Electronic signature on file) Signed out: 01/13/2018 16:39 PRINTED: 01/13/2018 Page 1 of 1 Performed By: #### SURG #### [place] [address] CHEST PA AND LATERAL Observed: 01/10/2018 Status: F Source: [place] 3:33 PM [facility] REPOSITORY [facility] Imaging Services [address] [place] [address] Chest PA and Lateral MR#: [id number] Acct: [id number] Name: MABLENAVEEN Adrian Rep #: [id number] : 1940 M 77 From: Manjit Sahu MD PCP: Jack Olmedo MD Status: REG CLI Study: Chest PA and Lateral Date of Exam: 01/10/18 Exam# [id number] Ordering Dr: Jack Olmedo MD STUDY: X-RAY [...] Service support , CC: Jack Olmedo MD Clinical Trials Nurse: Signed ABDOMEN/PELVIS WITHOUT Observed: 01/10/2018 Status: F Source: [place] CONT 3:31 PM [facility] REPOSITORY [facility] Imaging Services [address] [place] [address] Abdomen/Pelvis without Cont MR#: [id number] Acct: [id number] Name: NAVEEN AKINS Rep #: [id number] : 1940 77 From: Manjit Sahu MD PCP: Jack Olmedo MD Status: REG CLI Study: Abdomen/Pelvis without Cont Date of Exam: 01/10/18 Exam# [id number] Ordering Dr: Jack Olmedo MD STUDY: CT [...] Service support , CC: Jack Olmedo MD Clinical Trials Nurse: Signed ERYTHROCYTE SED RATE Collected: 01/10/2018 Status: F Source: [place] 12:19 PM [facility] REPOSITORY TYPE CODE TESTS RESULT OUT OF RANGE REFERENCE UNITS LAB L102.0000 0-20 mm/hr High SED RATE 27 Performed By: #### L101.9900, L100.0100 #### [facility] [address] [place], [address] CBC W/DIFF, AUTOMATED Collected: 01/10/2018 Status: F Source: [place] 12:19 PM [facility] REPOSITORY TYPE CODE TESTS RESULT OUT OF [...] 1.80 Performed By: #### L101.9900, L100.0100 #### [facility] [place], [address] URINALYSIS, ROUTINE Collected: 01/10/2018 Status: F Source: [place] (DIPSTICK) 12:19 PM [facility] REPOSITORY Order Comment: How was Urine Obtained? [...] High LEUK 25 ESTERASE Performed By: #### L400.2010 #### [facility] [address] [place], [address] COMPREHENSIVE METABOLIC Collected: 01/10/2018 Status: F Source: [facility] 12:19 PM [facility] REPOSITORY Order Comment: Is Patient Taking Vitamins [...] #### L500.4050, L501.6710, L501.9520, L503.6550, L506.0250 #### [facility] [address] [place], [place], [address] CRP Collected: 01/10/2018 Status: F Source: [place] 12:19 PM [facility] REPOSITORY Order Comment: Is Patient Taking Vitamins [...] #### L500.4050, L501.6710, L501.9520, L503.6550, L506.0250 #### [facility] [address] [place], [place], [address] THYROID STIM HORMONE Collected: 01/10/2018 Status: F Source: [place] (TSH) 12:19 PM [facility] REPOSITORY Order Comment: Is Patient Taking Vitamins or Folic Acid Supplements? N TYPE CODE TESTS RESULT OUT OF RANGE REFERENCE UNITS LAB L501.9520 0.358-3.74 uIU/mL Normal TSH 3.05 Performed By: #### L500.4050, L501.6710, L501.9520, L503.6550, L506.0250 #### [facility] [address] [place], [address] FERRITIN Collected: 01/10/2018 Status: F Source: [place] 12:19 PM [facility] REPOSITORY Order Comment: Is Patient Taking Vitamins or Folic Acid Supplements? N TYPE CODE TESTS RESULT OUT OF REFERENCE UNITS RANGE LAB L503.6550 26-388 ng/mL High FERRITIN 513 Performed By: #### L500.4050, L501.6710, L501.9520, L503.6550, L506.0250 #### [facility] [place], [address] FOLATES, (FOLIC ACID) Collected: 01/10/2018 Status: F Source: [place] 12:19 PM [facility] REPOSITORY Order Comment: Is Patient Taking Vitamins or Folic Acid Supplements? N TYPE CODE TESTS RESULT OUT OF RANGE REFERENCE UNITS LAB L506.0250 3.1-55.4 ng/mL Normal FOLATES 13.90 Performed By: #### L500.4050, L501.6710, L501.9520, L503.6550, L506.0250 #### [facility] [address] [place], [address] VITAMIN B12 Collected: 01/10/2018 Status: F Source: [place] 12:19 PM [facility] REPOSITORY TYPE CODE TESTS RESULT OUT OF RANGE REFERENCE UNITS LAB L503.0105 211-911 pg/mL Normal Vitamin B12 344 Performed By: #### L503.0105, L506.1000 #### [facility] [address] [place], [address] VITAMIN D,25 HYDROXY Collected: 01/10/2018 Status: F Source: [place] 12:19 PM [facility] REPOSITORY TYPE CODE TESTS RESULT OUT OF RANGE REFERENCE UNITS LAB L506.1000 29.95-100.01 ng/mL Normal Vitamin D 30.5 25-OH Result Comment: Vitamin D 25(OH) Status Range Deficiency <20 ng/mL (50nmol/L) Insuffciency 20 - 30 ng/mL (50 - 75 nmol/L) Sufficiency 30 - 100 ng/mL (75 - 250 nmol/L) Toxicity >100 ng/mL (>250 nmol/L) Performed By: #### L503.0105, L506.1000 #### [facility] [address] [facility] [place], [address] ANTINUCLEAR ANTIBODIES Collected: 01/10/2018 Status: F Source: [place] DIRECT 12:19 PM [facility] REPOSITORY TYPE CODE TESTS RESULT OUT OF REFERENCE UNITS RANGE LAB L3100.5475 Negative High Positive ASHWIN-DIRECT Result Comment: Performed at: [facility] [id number] Manager Control: Nahun Charles PhD, Phone: [phone] Performed By: #### L3100.5475 #### [facility] (refer to report for specific site) refer to report for address and phone number Observed: 01/10/2018 Status: F Source: [place] CULTURE, URINE 12:19 PM [facility] REPOSITORY Urine Culture Below infection level. ORGANISM 1: Mixed Gram Positive Organisms [place] Count 1000-10,000 MIX CULTURE Mixed contaminants. Submit a new specimen if indicated. Performed By: #### M100.0650 #### [facility] [address] [place] [address], [address] Observed: 01/10/2018 Status: F Source: [place] CULTURE, BLOOD (WB) 12:19 PM [facility] REPOSITORY BC No growth in 5 days. Performed By: #### M200.1000 #### [facility] [address] [place] [address] [place], [address] DOWNTIME REPORT Observed: 11/24/2017 Status: F Source: [place] 2:00 PM [facility] REPOSITORY [facility] Medical Records Department [address] [address] [place] [address] Downtime Report MR#: [id number] Acct: [id number] Name: NAVEEN AKINS Rep #: [id number] : 1940 77 From: Paramjit Silva PCP: Jack Olmedo MD Status: REG CLI This patient was seen during an EMR downtime November 07, 2017 - November 14, 2017. This patient may have a combination of paper and electronic documentation or all paper documentation. All documentation is viewable within the e-chart portion of [email or web address] for each patient visit. 12 LEAD ELECTROCARDIOGRAM Observed: 11/21/2017 Status: F Source: [place] 8:46 AM [facility] REPOSITORY [facility] Cardiovascular Services [address] [place] [address] 12 Lead EKG 11/10/17 1605 MR#: [id number] Acct: [id number] Name: NAVEEN AKINS Rep #: [id number] : 1940 77 From: Jax Finnegan MD Attending Dr: Cammy Crowe Status: REG CLI Ordering Dr: Cammy Crowe Date: 11/10/17 Location: [facility] Sex: M C Admitted: Test Reason : [...] ECG Confirmed by JAX FINNEGAN MD ([id number]), senior technical editor KATHY SILVA ([id number]) on 11/16/2017 6:07:38 PM Referred By: Cammy Crowe Confirmed By:JAX FINNEGAN MD 11/16/17 180 Date Jax Finnegan MD CC: Cammy Crowe; Jack Olmedo MD Signed BASIC METABOLIC Collected: 11/10/2017 Status: F Source: [place] PROFILE (BMP) 11:00 AM [facility] REPOSITORY TYPE CODE TESTS RESULT OUT OF [...] GAP 7 Performed By: #### L500.2500 #### [facility] [address] [place], [address] CBC-COMPLETE BLOOD CNT Collected: 11/10/2017 Status: F Source: [place] NO DIFF 11:00 AM [facility] REPOSITORY Order Comment: RESULT(S) PREVIOUSLY REPORTED ON [...] L100.1900 150-450 K/mm3 Low PLT 148 LAB L100.1999 6.2-12.0 fl Normal MPV 9.7 Performed By: #### L100.0500 #### [facility] [address] [place], [address] ALLERGIES ALLERGIES DATE TYPE / CODE NAME / CODE REACTION SEVERITY SOURCE 05/07/2018 Drug famotidine/F0060 Low blood Unknown [facility] Allergy/416 26105(RXNORM) [facility] 118557(SNOM Repository ED CT) 05/07/2018 Drug metoclopramide/F Other Unknown [facility] Allergy/416 530903400(RXNO Hospital 761350(SNOM ) Repository ED CT) 10/31/2013 Drug No Known Unknown [facility] Allergy/416 Allergies/N53834 Hospital 197469(SNOM 0388(RXNORM) Repository ED CT) Drug NO KNOWN [facility] Class/05943 ALLERGIES Other [place] 1003(SNOMED Repository CT) NG/43531704 NO KNOWN [facility] 6(SNOMED ALLERGIES Health [facility] CT) Repository ENCOUNTERS ENCOUNTERS ADMIT/DISCHARGE ACCOUNT NUMBER ADMITTING ENCOUNTER LOCATION SOURCE CLASS 05/11/2018 [id number] [facility] ding:CT Repository 05/07/2018/05/08/20 [id number] Emergency [address] ding:ED Repository 05/06/2018 [id number] Sj, Jh Chi Inpatient [facility] ding:TCURoom Repository : BJZ57Vab: 1 05/06/2018 [id number] Sj, Jh Chi Ambulatory BMSBuilding: [place] BMS.[facility] Repository 05/06/2018 [id number] Sj, Jh Chi Ambulatory BMSBuilding: [place] BMS.CF.[facility] Repository 05/05/2018/05/06/20 [id number] Agyepong, Inpatient [address] ding:PCURoom Repository : [id number]: 1 05/05/2018 [id number] Agyepon, Ambulatory BMSBuilding: [place] BMS.[facility] Repository 05/05/2018 [id number] Agyepong, Ambulatory BMSBuilding: [place] BMS.[facility] Repository 05/03/2018/05/03/20 [id number] Ambulatory BMSBuilding: [place] 18 BMS.[facility] Repository 04/04/2018/05/05/20 [id number] Sj Jh Chi Inpatient [place] 18 Encounter [facility] ding:TCURoom Repository : [id number]: 1 04/01/2018/04/04/20 [id number] [place] Inpatient [place] 18 Encounter [facility] ding:PCURoom Repository : [id number]: 1 04/01/2018 [id number] [place] Ambulatory BMSBuilding: [place] BMS.[facility] Repository 04/01/2018 [id number] [place] Ambulatory BMSBuilding: [place] BMS.[facility] Repository 04/01/2018 [id number] [place] Ambulatory BMSBuilding: [place] BMS.[facility] Repository 04/01/2018 [id number] [place] Ambulatory BMSBuilding: [place] BMS.[facility] Repository 04/01/2018/04/04/20 [id number] Ambulatory BMSBuilding: [place] 18 [facility] Repository 03/29/2018 [id number] Ambulatory BMSBuilding: [place] [facility] Repository 03/28/2018/04/01/20 [id number] Sj Jh Chi Inpatient [place] 18 Encounter [facility] ding:TCURoom Repository : [id number]: 1 03/09/2018/03/15/20 [id number] SOLIZ, Inpatient [place] [address] LORA [facility] Repository 03/09/2018/03/15/20 [id number] MD LORA Inpatient [address] MEDICAL Repository CENTERBuildi ng:MICURoom: 4815Bed: 01/12/2018 [id number] Ambulatory [facility] Repository 01/12/2018/01/13/20 [id number] Ambulatory [address] MEDICAL Repository CENTERBuildi ng:AKLB 01/12/2018/01/13/20 [id number] Ambulatory [address] [facility] 01/12[facility]2018/02/11/20 [id number] PANIAGUA, Inpatient [place] 18 VENKAT GENARO Encounter [facility] Repository 01/12/2018/02/11/20 [id number] PANIAGUA, [address] [facility] MEDICAL [facility]CVICRoom: 3233Bed: 01/12/2018 [id number] PANIAGUA, Inpatient [facility] MEDICAL Repository [facility] ng:AKSUR 01/11/2018/01/13/20 [id number] Emergency [address] ding:ED Repository 01/10/2018 [id number] [facility] ding:CT Repository 01/10/2018 [id number] [facility] ding:MTLAB Repository 11/10/2017 [id number] [facility] ding:MTLAB Repository PAYERS PAYERS ENCOUNTER GUARANTOR PAYER SUBSCRIBER SOURCE 05/11/2018 NAVEEN Adrian Primary NAVEEN [place] [id number] Insurance:MEDICARE RICHARDDOB: [facility] [id number] [address]Tlg: Number: Repository [id number] () Date:2018-05-11 05/11/2018 Secondary NOT GIVENUNK [place] Insurance:SELF PAY [facility] Number: Effective Repository Date:2018-05-11 05/07/2018 NAVEEN Adrian Primary NAVEEN [place] [id number] Insurance:MEDICARE RICHARDDOB: [facility] [id number] Women's Hospital [address]Bku: Number: Repository [id number] () Date:2018-05-07 05/07/2018 Secondary NOT GIVENUNK [place] Insurance:SELF PAY [facility] Number: Effective Repository Date:2018-05-07 05/06/2018 NAVEEN Adrian Primary NAVEEN Mon[place] [id number] Insurance:MEDICARE RICHARDDOB: [facility] [id number] Women's Hospital [address]36[address]Pxa: Number: Repository [id number] (HP) Date:2018-05-06 05/06/2018 Secondary NOT GIVENUNK [place] Insurance:SELF PAY [facility] Number: Effective Repository Date:2018-05-06 05/06/2018 NAVEEN R Primary NAVEEN [place] [id number] Insurance:MEDICARE RICHARDDOB: [facility] [id number] Women's Hospital [address]Uro: Number: Repository [id number] (HP) Date:2018-05-06 05/06/2018 Secondary NOT GIVENUNK [place] Insurance:SELF PAY [facility] Number: Effective Repository Date:2018-05-06 05/06/2018 NAVEEN Adrian Primary NAEVEN [place] [id number] Insurance:MEDICARE RICHARDDOB: [facility] [id number] Women's Hospital [address]Lay: Number: Repository [id number] (HP) Date:2018-05-06 05/06/2018 Secondary NOT GIVENUNK [place] Insurance:SELF PAY [facility] Number: Effective Repository Date:2018-05-06 05/05/2018 NAVEEN Adrian Primary NAVEEN Adrian [place] [id number] Insurance:MEDICARE RICHARDDOB: [facility] [id number] Women's Hospital 56859Auy: Number: Repository [id number] (HP) Date:2018-05-04 05/05/2018 Secondary NOT GIVENUNK [place] Insurance:SELF PAY [facility] Number: Effective Repository Date:2018-05-04 05/05/2018 NAVEEN Adrian Primary NAVEEN [place] [id number] Insurance:MEDICARE RICHARDDOB: [facility] [id number] Women's Hospital 84[address]Phl: Number: Repository [id number] (HP) Date:2018-05-04 05/05/2018 Secondary NOT GIVENUNK [place] Insurance:SELF PAY [facility] Number: Effective Repository Date:2018-05-05 05/05/2018 NAVEEN R Primary NAVEEN [place] [id number] Insurance:MEDICARE [facility] [id number] Women's Hospital [address]Cub: Number: Repository [id number] (HP) Date:2018-05-04 05/05/2018 Secondary NOT GIVENUNK [place] Insurance:SELF PAY [facility] Number: Effective Repository Date:2018-05-05 05/03/2018 NAVEEN R Primary NAVEEN Kaylah [place] [id number] Insurance:MEDICARE R[facility]ARDDOB[facility] [id number] Women's Hospital [address]Ghx: Number: Repository [id number] (HP) Date:2018-04-05 05/03/2018 Secondary NOT GIVENUNK [place] Insurance:SELF PAY [facility] Number: Effective Repository Date:2018-04-25 04/04/2018 NAVEEN R Primary NAVEEN Adrian [place] [id number] Insurance:MEDICARE R[facility]ARDDOB: [facility] [id number] Women's Hospital 11577Coe: Number: Repository [id number] (HP) Date:2018-04-04 04/04/2018 Secondary NOT GIVENUNK [place] Insurance:SELF PAY [facility] Number: Effective Repository Date:2018-04-04 04/01/2018 NAVEEN R Primary NAVEEN Adrian [place] [id number] Insurance:MEDICARE RICHARDDOB: [facility] [id number] [address]Tdk: Number: Repository [id number] (HP) Date:2018-04-01 04/01/2018 Secondary NOT GIVENUNK [place] Insurance:SELF PAY [facility] Number: Effective Repository Date:2018-04-01 04/01/2018 NAVEEN R Primary NAVEEN [place] [id number] Insurance:MEDICARE RICHARDDOB: [facility] [id number] Women's Hospital [address]Qvv: Number: Repository [id number] (HP) Date:2018-04-01 04/01/2018 Secondary NOT GIVENUNK [place] Insurance:SELF PAY [facility] Number: Effective Repository Date:2018-04-01 04/01/2018 NAVEEN R Primary NAVEEN [place] [id number] Insurance:MEDICARE RICHARDDOB: [facility] [id number] Women's Hospital [address]Oks: Number: Repository [id number] (HP) Date:2018-04-01 04/01/2018 Secondary NOT GIVENUNK [place] Insurance:SELF PAY [facility] Number: Effective Repository Date:2018-04-01 04/01/2018 NAVEEN Adrian Primary NAVEEN [place] [id number] Insurance:MEDICARE RICHARDDOB: [facility] [id number] Women's Hospital [address]Jsi: Number: Repository [id number] (HP) Date:2018-04-01 04/01/2018 Secondary NOT GIVENUNK [place] Insurance:SELF PAY [facility] Number: Effective Repository Date:2018-04-01 04/01/2018 NAVEEN R Primary NAVEEN [place]ley[place] [id number] Insurance:MEDICARE RICHARDDOB: [facility] [id number] Women's Hospital [address]Gie: Number: Repository [id number] (HP) Date:2018-04-01 04/01/2018 Secondary NOT GIVENUNK [place] Insurance:SELF PAY [facility] Number: Effective Repository Date:2018-04-01 04/01/2018 NAVEEN Adrian Primary NAVEEN Monge [id number] Insurance:MEDICARE RICHARDDOB: [facility] [id number] Women's Hospital [address]884Ybx: Number: Repository [id number] (HP) Date:2018-04-01 04/01/2018 Secondary NOT GIVENUNK [place] Insurance:SELF PAY [facility] Number: Effective Repository Date:2018-04-01 03/29/2018 NAVEEN R Primary NAVEEN Monge [id number] Insurance:MEDICARE RICHARDDOB: [facility] [place], [place] [facility] [id number] Women's Hospital [address]Asd: Number: Repository [id number] (HP) Date:2018-03-28 03/29/2018 Secondary NOT GIVENUNK [place] Insurance:SELF PAY [facility] Number: Effective Repository Date:2018-03-29 03/28/2018 NAVEEN R Primary NAVEEN Adrian [place] [id number] Insurance:MEDICARE RICHARDDOB: [facility] [id number] Women's Hospital [address]Qmz: Number: Repository [id number] (HP) Date:2018-03-28 03/28/2018 Secondary NOT GIVENUNK [place] Insurance:SELF PAY [facility] Number: Effective Repository Date:2018-03-28 03/09/2018 NAVEEN R Primary NAVEEN R [facility] RICHARDDOB: Insurance:MEDICARE A RICHARDDOB: [facility] AND BPolicy Number: [id number] Repository JOSE ALBERTO RDWOOSTER, [id number] [place] [address]Tmk: Date: (HP) 01/12/2018 NAVEEN Adrian Primary NAVEEN [facility] RICHARDDOB: Insurance:MEDICARE A RICHARDDOB: [facility] AND BPolicy Number: [id number] Repository JOSE ALBERTO ARAIZASTER, [id number] [place] [address]Mqp: Date: (HP) 01/12/2018 NAVEEN R Primary NAVEEN R [facility] RICHARDDOB: Insurance:MEDICARE A RICHARDDOB: [facility] AND BPolicy Number: [id number] Repository JOSE ALBERTO RDMelaOOSTER, [id number] [place] [address]Zva: Date: (HP) 01/11/2018 Naveen R Primary Naveen [place] [id number] Insurance:MEDICARE RichardDOB[facility] [id number] Hospital [place] [address]Wzb: Number: Repository [id number] (HP) Date:2018-01-11 01/11/2018 Secondary NOT GIVENUNK [place] Insurance:SELF PAY [facility] Number: Effective Repository Date:2018-01-11 01/10/2018 Naveen R Primary Naveen Mon[place] [id number] Insurance:MEDICARE RichardDOB[facility] [id number] Hospital [place] [address]Bol: Number: Repository [id number] (HP) Date:2018-01-10 01/10/2018 Secondary NOT GIVENUNK [place] Insurance:SELF PAY [facility] Number: Effective Repository Date:2018-01-10 01/10/2018 Naveen R Primary Naveen Monge [id number] Insurance:MEDICARE RichardDOB: [facility] [id number] Women's Hospital [address]Piv: Number: Repository [id number] (HP) Date:2018-01-10 01/10/2018 Secondary NOT GIVENUNK [place] Insurance:SELF PAY [facility] Number: Effective Repository Date:2018-01-10 11/10/2017 Naveen R Primary Naveen Adrian [place] [id number] Insurance:MEDICARE RichardDOB: [facility] [id number] Hospital [place] [address]Tcl: Number: Repository [id number] (HP) Date:2017-11-10 11/10/2017 Secondary NOT GIVENUNK [place] Insurance:SELF PAY [facility] Number: Effective Repository Date:2017-11-10
== END 2018-05-26 13:30 | disposition short-term general hospital (02) | DRG 56 ==
PROVIDERS: Admitting Provider Family Medicine Geriatric Medicine; Family Provider Family Medicine; PCP Family Medicine; Visit Provider Family Medicine Geriatric Medicine
DX: I69.854 Hemiplegia and hemiparesis following other cerebrovascular disease affecting left non-dominant side (principal); J18.9 Pneumonia, unspecified organism; G93.1 Anoxic brain damage, not elsewhere classified; Z43.1 Encounter for attention to gastrostomy; E44.0 Moderate protein-calorie malnutrition; I69.892 Facial weakness following other cerebrovascular disease; E78.5 Hyperlipidemia, unspecified; D50.9 Iron deficiency anemia, unspecified; K21.9 Gastro-esophageal reflux disease without esophagitis; R13.10 Dysphagia, unspecified; I10 Essential (primary) hypertension; I25.10 Atherosclerotic heart disease of native coronary artery without angina pectoris; Z98.890 Other specified postprocedural states; R91.1 Solitary pulmonary nodule; B37.9 Candidiasis, unspecified; Z86.79 Personal history of other diseases of the circulatory system; Z68.21 Body mass index [BMI] 21.0-21.9, adult
CPT/HCPCS: 36415; 36600; 71045; 74018; 74230; 80048; 81001; 82803; 82962; 85025; 87070; 87086; 87088; 87205; 87633; 92507; 92526; 92610; 93005; 94640; 97110; 97163; 97166; 97530; 97535; 97802; 97803; J7030; A4216

== ENCOUNTER 2018-05-07 19:45 | Emergency (ER) | payer MEDICARE, SELFPAY ==
[2018-05-06 14:48] VITALS: BMI 21.7
[2018-05-07 19:47] VITALS: BP 103/56; PULSE 87; RESP 16; TEMP 37; O2SAT 95; BMI 21.8
--- NOTE | 2018-05-07 20:35 | CT_ITS ---
STUDY: CT CHEST WITH CONTRAST REASON FOR EXAM: Male, 78 years old. Fever RADIATION DOSAGE (If Supplied By Facility): CTDIvol = ( ) mGy, DLP = ( 623.86 ) mGycm TECHNIQUE: Transaxial imaging was performed following intravenous administration of 100 ml of Isovue 300 contrast material. Sagittal and coronal reconstructions were performed. Individualized dose optimization techniques were used for this CT. COMPARISON: Chest radiograph from the same day FINDINGS: There is minimal biapical scarring. There are patchy airspace opacities in the posterior segment of the right upper lobe. There is an 11 mm opacity in the anterior segment of the right upper lobe on series 6 image 54. There is a small radiopaque foreign body in the periphery of the right lower lobe near the diaphragm. There are increased lung markings in the posterior segments of both lower lobes. There is moderate fluid in the right pleural margin. The heart is normal in size. There are calcifications of the coronary arteries. There are small lymph nodes scattered in the mediastinum. There are small lymph nodes in the right hilum. The pulmonary arteries are unremarkable. There are minimal vascular calcifications in the thoracic aorta. There are minimal degenerative changes in the visualized spine. There is an old fracture of the right scapula. There are no significant abnormalities in the visualized upper abdomen. CT/Chest WITH Contrast IMPRESSION: There are patchy airspace opacities in the posterior segment of the right upper lobe, probable focal pneumonia. There is a moderate right pleural effusion. There is an 11 mm opacity in the anterior segment of the right upper lobe. A PET/CT scan should be considered after treatment to evaluate for metabolic activity in this nodule. There is moderate dependent atelectasis in both lower lobes. There are no enlarged lymph nodes. There are small reactive lymph nodes in the mediastinum and right hilum. Electronically Signed: Keely Castellano MD at 23:39 EST Tel Direct: [phone], Service support ,
[2018-05-07] MEDS: 0.9% Normal Saline 1,000 ML 150 ML IV (20:56)
[2018-05-07 20:59] LABS: Bacteria 0 SEEN /hpf (None Seen); Mucous, Urine 0 SEEN /hpf (<or=2+)
--- NOTE | 2018-05-07 21:03 | CT_ITS ---
STUDY: CT ABDOMEN AND PELVIS WITHOUT CONTRAST REASON FOR EXAM: Male, 78 years old. Fever. Constipation. RADIATION DOSAGE (If Supplied By Facility): CTDIvol = ( 21.40 ) mGy, DLP = ( 1062.34 ) mGycm TECHNIQUE: Transaxial images were obtained from the dome of the diaphragm to the symphysis pubis without oral contrast, and without intravenous contrast. Sagittal and coronal images were reconstructed. Individualized dose optimization techniques were used for this CT. COMPARISON: CT of the abdomen and pelvis, January 11, 2018. FINDINGS: There are small bilateral pleural effusions, right greater than left subsegmental atelectasis. There is a metallic foreign body in the posterior aspect of the medial right lung. Heart appears mildly enlarged and slightly displaced into the left hemithorax. The liver is normal in size contour and density. There is mild intrahepatic and extrahepatic biliary ductal dilatation with nonvisualization of the gallbladder suggesting prior cholecystectomy. Normal spleen. Normal pancreas. Normal bilateral adrenal glands. Normal right kidney. Normal left kidney. There is a gastrostomy tube in the body of the stomach. Normal small intestine. There is sigmoid diverticulosis without acute inflammatory change. The appendix is visualized and appears normal. There is minimal atherosclerotic changes of the abdominal aorta. There are multiple surgical clips about the upper aorta at the takeoff of the left renal artery. There is a fat density mass surrounding the lower abdominal aorta and extending outward along the course of the left common iliac artery into the retroperitoneal fascia along the iliopsoas muscle. This is thought to be secondary to interval repair of the large abdominal aneurysm seen on the previous CT. Normal IVC. Normal urinary bladder. Normal prostate and seminal vesicles. There is no pelvic lymphadenopathy or mass. No free air or free fluid is seen within the peritoneal cavity. There are surgical changes of the abdominal wall which were not present on the prior study. There is a right inguinal hernia containing nonobstructed loop of small bowel.. There are degenerative changes of the lumbar spine and bilateral hips which appear unchanged from the prior study. CT/Abdomen/Pelvis W IV Cont ONLY IMPRESSION: 1. Interval repair of an infrarenal abdominal aortic aneurysm noted on the prior CT. 2. Bilateral pleural effusions not present on the previous examination. 3. Status post cholecystectomy. 4. Diverticulosis. 5. Right inguinal hernia containing nonobstructed small bowel. 6. No other major interval change. Electronically Signed: Michael Moss DO at 21:51 EST Tel [phone], Service support ,
[2018-05-07 21:24] LABS: Color, Urine Yellow (Yellow); Glucose, Dipstick NEGATIVE (Normal); Ketone-Dipstick Negative (Negative); Leukocyte Esterase-Dipstick Negative /ul (Negative); Nitrite-Dipstick Negative (Negative); Occult Blood-Urine 10 /ul (Negative); Protein-Dipstick 15 mg/dl (Negative); Urine Bilirubin Dipstick Negative (Negative); Urine Clarity Clear (Clear); Urine Urobilinogen Normal (Normal)
[2018-05-07 21:27] LABS: Red Blood Cells-Urine 0-5 SEEN /hpf (0-5); Squamous Epithelial Cells - UA 0-5 SEEN /hpf (0-5); White Blood Cells 0-5 SEEN /hpf (0-5)
--- NOTE | 2018-05-07 21:38 | ED.VISSUMM ---
- ER Visit Summary Date of Service: 05/07/18 Chief Complaint: Abnormal chest x-ray History of Present Illness: The patient is a 78 M sent here from TCU for an abnormal chest x-ray obtained today. Family present, reports patient complicated AAA rupture this past January leading to repair [facility]. Complication from wound. Patient has trach and PEG, tracheostomy tube was removed April 16. Increasing cough since yesterday. Reported fever of 100.7 axillary. Was empirically started on Levaquin 250 mg today. 3 days ago states was admitted for TIA with left facial droop and left leg weakness which has resolved. Denies any urinary symptoms. Patient been constipated for 3 days had a bowel movement during this recent hospitalization. Unclear passing gas. No nausea or vomiting. Review records, labs are stable, chest x-ray reported right upper lobe density cannot rule out nodule. KUB had constipation however reported of concern for obstruction may need CT. Physical Examination: General: Alert and oriented ?3, no acute distress HEENT: Normocephalic, atraumatic. Moist mucosa membranes Neck: supple, nontender. Tracheostomy auscultation, dry, intact with dressing. Cardiovascular: Regular rate and rhythm, no murmurs Respiratory: Normal breath sounds, symmetric, no distress Abdomen: Soft, nontender, nondistended. Healing abdominal incisions, PEG tube clean, dry, intact. Extremities: Nontender, no edema, pulses intact ?4 Neuro: no focal neurological deficits. Test Results: CT chest IV contrast: Right upper lobe infiltrate, 11 mm right upper lobe nodule, right lower lobe pleural effusion. CT abdomen pelvis IV contrast: No acute process Emergency Department Course and Treatment: Patient brought in for abnormal chest x-ray. Vitals stable pulse ox stable. Reviewed noted concern for infiltrate rule out nodule. They reported concerns for bowel obstruction by nursing care upstairs with a KUB. KUB noted constipation and reported if concern for CAT scan. However family wanted further rule out. CAT scan chest abdomen pelvis obtained, no intra-abdominal process that were acute. Chest candidate report confirmed right upper pneumonia in addition 11 mm nodule. He is not a smoker. His vitals remained stable. He was treated with Levaquin 750 IV in the ED. 6 more days. They will stop 250 mg of Levaquin. Information relayed back to TCU by nursing. Treatment Plan: [] Disposition: Discharge Impression: 1. Right upper lobe pneumonia 2. 11 mm right upper lobe nodule This note was generated with [employer] dictation software. It may contain incorrect words, spelling, and punctuation that were not noted in review of the chart prior to signing ED Disposition - Plan for ED Patient: Disposition: Home or Assisted Living Chief Complaint: Other, Pain/Inj Diagnosis: Pneumonia, Pulmonary nodule, right Instructions: ED Pneumonia Adult, ED Nodule Solitary Pulmonary Prescriptions: Levofloxacin [Levaquin] 750 mg PO DAILY #6 tablet Referrals: Jack Olmedo MD [Primary Care Provider] - 3-5 Days Additional Instructions: Stop Levaquin 250 mg. Levaquin 750 mg started in the ED. Will need 6 more days. Right upper lobe infiltrate. 11 mm right upper lobe nodule. Will need investigation further workup as an outpatient.
[2018-05-07 23:33] VITALS: BP 138/70; PULSE 73; RESP 16; TEMP 36.6; O2SAT 98
[2018-05-07] MEDS: levoFLOXacin IV 750 MG/150 ML BAG 100 MG IV (23:37)
[2018-05-08 00:21] VITALS: BP 106/66; PULSE 80; RESP 21; O2SAT 95
--- OUTSIDE RECORDS SUMMARY | 2018-07-01 01:42 | XMS RPT_ITS ---
:1940 External Reference #:[id number] Author Organization [place] Support Name Relationship Address Phone Ariadna Casanova Unavailable Unavailable + R Unavailable Unavailable Unavailable MABLE SEHLLY Unavailable [address] + [place] [address] R Unavailable Unavailable Unavailable SHELLY AKINS Unavailable [address] + [place] [address] Ariadna Casanova Unavailable Unavailable + R Unavailable Unavailable Unavailable SHELLY AKINS Unavailable [address] + [place] [address] Ariadna Casanova Unavailable Unavailable + R Unavailable Unavailable Unavailable SHELLY AKINS Unavailable [address] + [place] [address] Ariadna Casanova Unavailable Unavailable + R Unavailable Unavailable Unavailable SHELLY AKINS Unavailable [address] + [place] [address] R Unavailable Unavailable Unavailable PREETI AKINSE Unavailable [address] + [place] [address] Ariadna Casanova Unavailable Unavailable + R Unavailable Unavailable Unavailable SHELLY AKINS Unavailable [address] + [place] [address] R Unavailable Unavailable Unavailable MABLE SHELLY Unavailable [address] + [place] [address] R Unavailable Unavailable Unavailable SHELLY AKINS Unavailable [address] + [place] [address] R Unavailable Unavailable Unavailable SHELLY AKINS Unavailable [address] + [place] [address] R Unavailable Unavailable Unavailable SHELLY AKINS Unavailable [address] + [place] [address] R Unavailable Unavailable Unavailable SHELLY AKINS Unavailable [address] + [place] [address] R Unavailable Unavailable Unavailable SHELLY AKINS Unavailable [address] + [place] [address] R Unavailable Unavailable Unavailable SHELLY AKINS Unavailable [address] + [place] [address] R Unavailable Unavailable Unavailable SHELLY AKINS Unavailable [address] + [place] [address] R Unavailable Unavailable Unavailable SHELLY AKINS Unavailable [address] + [place] [address] R Unavailable Unavailable Unavailable SHELLY AKINS Unavailable [address] + [place] [address] R Unavailable Unavailable Unavailable SHELLY AKINS Unavailable [address] + [place] [address] R Unavailable Unavailable Unavailable SHELLY AKINS Unavailable [address] + [place] [address] R Unavailable Unavailable Unavailable SHELLY AKINS Unavailable [address] + [place] [address] R Unavailable Unavailable Unavailable SHELLY AKINS Unavailable [address] + [place] [address] R Unavailable Unavailable Unavailable SHELLY AKINS Unavailable [address] + [place] [address] Care Team Providers Name Role Phone Cammy [...] Consulting Unavailable [place], [place] Admitting Unavailable Paintsil, [place] Attending Unavailable Olmedo, Jack Primary Care Unavailable Hakan, Ricardo S. Consulting Unavailable [place], [place] Consulting Unavailable [place], [place] Admitting Unavailable [place], [place] Attending Unavailable Olmedo, Jack Primary Care Unavailable Hakan, Ricardo S. Consulting Unavailable Reid, Nelson Consulting Unavailable [place], [place] Consulting Unavailable [place], [place] Admitting Unavailable [place], [place] Attending Unavailable Olmedo, Jack Primary Care Unavailable Hakan, Ricardo S. Consulting Unavailable Reid, Nelson Consulting Unavailable [place], [place] Consulting Unavailable Sj, Jh Chi Admitting Unavailable [...] PANIAGUA Admitting Unavailable VENKAT PANIAGUA Attending Unavailable [facility] Primary Care Unavailable VENKAT PANIAGUA Admitting Unavailable VENKAT PANIAGUA Attending Unavailable [facility] Primary Care Unavailable PERCY CARRERA Consulting Unavailable EKATERINA MCKEON Consulting Unavailable TANPHAICHITR, NATTHAVAT Consulting Unavailable GILBERT TUCKER Consulting Unavailable ADRIANE CARVALHO Consulting Unavailable BRAD CASTILLO Consulting Unavailable Catalino MARTINO Consulting Unavailable EDU IIIDORCAS Consulting Unavailable IM[facility] Referring Unavailable [facility] Primary Care Unavailable IMCA Referring Unavailable [facility] Primary Care Unavailable MD CYNDI PAULINO Admitting Unavailable [facility] Primary Care Unavailable CHENTE WHITTAKER Attending Unavailable GILBERT TUCKER Consulting Unavailable TANPHAICHITR, NATTHAVAT Consulting Unavailable SIMI ESQUEDA Consulting Unavailable MAHI NOVOA () Consulting Unavailable PROBLEMS PROBLEMS DATE TYPE CONDITION / CODE ATTENDING STATUS SOURCE 05/23/2018 Unknown I69.854 - Hemiplegia Robotham, Active [place] and hemiparesis [facility] Community following other Hospital cerebrovascular Repository disease affecting left non-dominant side / I69.854(ICD-10) 05/05/2018 Unknown R53.81 - Other Sj, Jh Chi Active [place] malaise / Community R53.81(ICD-10) Hospital Repository 05/05/2018 Unknown R13.12 - Dysphagia, Sj, Jh Chi Active [place] oropharyngeal phase / Community R13.12(ICD-10) Hospital Repository 04/11/2018 Unknown J96.10 - Chronic Reid, Nelson Active [place] respiratory failure, Community unspecified whether Hospital with hypoxia or Repository hypercapnia / J96.10(ICD-10) 04/11/2018 Unknown R55 - Syncope and Reid, Nelson Active [place] collapse / Community R55(ICD-10) Hospital Repository 04/11/2018 Unknown E78.5 - Reid, Nelson Active [place] Hyperlipidemia, Community unspecified / Hospital E78.5(ICD-10) Repository 04/11/2018 Unknown K21.9 - Reid, Nelson Active [place] Gastro-esophageal Community reflux disease Hospital without esophagitis / Repository K21.9(ICD-10) 04/24/2018 Unknown 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 / I25.10(ICD-10) 04/24/2018 Unknown I10 - Essential Moy Gee Active [place] (primary) Community hypertension / Hospital I10(ICD-10) Repository 03/11/2018 Active Syncope and collapse CHENTE WHITTAKER Active [place] / R55(ICD-10) R Clinic Other [place] Repository 03/10/2018 Active Bradycardia, CHENTE WHITTAKER Active [place] unspecified / R Clinic Other R00.1(ICD-10) [place] Repository 03/10/2018 Active Unspecified foreign CHENTE WHITTAKER Active [place] body in other parts R Clinic Other of respiratory tract [place] causing asphyxiation, Repository initial encounter / T17.800A(ICD-10) 06/16/2009 Active Biliary acute CHENTE WHITTAKER Active [place] pancreatitis without R Clinic Other necrosis or infection [place] / K85.10(ICD-10) Repository 03/11/2018 Admitting Unknown / CHENTE WHITTAKER Active [facility]Unknown[facility] Repository 01/12/2018 Active Unknown / NA Active [place] UNK(Unknown) Clinic Other [place] Repository 01/31/2018 Active Abdominal aortic VENKAT PANIAGUA Active [place] aneurysm, ruptured / [facility] Other I71.3(ICD-10) [place] Repository 01/28/2018 Active Encephalopathy, VENKAT PANIAGUA Active [place] unspecified / [facility] Other G93.40(ICD-10) [place] Repository 01/12/2018 Active Cardiac arrest, cause VENKAT PANIAGUA Active [place] unspecified / [facility] Other I46.9(ICD-10) [place] Repository 01/12/2018 Active 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 [facility]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) / D65(ICD-10) 01/12/2018 Active Other shock / VENKAT PANIAGUA Active [place] R57.8(ICD-10) [facility] Other [place] Repository 01/12/2018 Active Supraventricular VENKAT PANIAGUA Active [place] tachycardia / [facility] Other I47.1(ICD-10) [place] Repository 01/10/2018 Unknown R53.83 - Other Jack Olmedo Active [place] fatigue / Community R53.83(ICD-10) Hospital Repository 01/10/2018 Unknown R50.9 - Fever, Olmedo Jack Active [place] unspecified / Community R50.9(ICD-10) Hospital Repository 11/30/2017 Unknown Z01.818 - Encounter Sebastien, Active [place] for other [facility] preprocedural Hospital examination / Repository Z01.818(ICD-10) PROCEDURES PROCEDURES No Procedure Records FoundRESULTS RESULTS BEDSIDE GLUCOSE Collected: 05/24/2018 Status: F Source: [place] 6:28 AM [facility] [place] CODE TESTS RESULT OUT OF RANGE REFERENCE UNITS LAB L501.080 70-110 mg/dL Normal BEDSIDE GLU 93 Result Comment: MANAGEMENT OF PATIENT CARE PER NURSING PROTOCOL Performed By: #### L501.080 #### [facility] Point of Care [address] [facility] [place] [address] CONSULTATION Observed: 05/23/2018 Status: F Source: [place] 4:01 PM [facility] [place] [facility] Medical Records Department [address] [place] [address] Consultation 05/22/18 1215 MR#: [id number] Acct: [id number] Name: NAVEEN AKINS Rep #: [id number] : 1940 78 From: Nivia Maciel MD PCP: Jack Olmedo MD Status: ADM IN Location: [place] [address] Reason for Consult Date of Consultation: 05/22/18 Reason for Consultation: Replacement of PEG tube History of Present Illness: The patient is a 78 year old M patient was initially admitted to the TCU, patient has a history status post his open AAA repair at [facility] in January 2018. Patient had multiple abdominal surgeries in order to close his abdomen as well. Patient did have a PEG tube placed at that time. While moving the PEG tube was inadvertently pulled. The nurses did place an 18 Spanish Sanchez catheter at the site this occurred [...] Psychiatric History: No pertinent psych hx Lives: [place]Way Smoking Status: Never smoker Tobacco Use: Non-smoker [...] Reviewed 05/05/18 @ 17:35 by Abimbola Morris, CHILD CARE COOK-C) Sister Factor 5 Leiden mutation, heterozygous Aneurysm [...] inadvertently pulled PEG tube, replacement with 20 Spanish G-tube The balloon was taken down of the 18 Spanish Sanchez. A 20 Spanish [employer] Endovive G-tube was placed without difficulty. The balloon was blown up with 6 cc of air, the bolster was at 3-1/2 at the skin. A 20 Spanish G-tube, reference [id number], lot [id number] . will check a contrast study prior to using the G-tube. Nivia Maciel M.D. Pager: [phone] [facility] [address] [place] [address], Outpatient Pavilion, [address] [place] [address] Office: [phone] Code Visit Inpatient E AND M: 33796 Init Hosp L2 05/23/18 1601 <Electronically signed by Nivia Maciel MD> Date Nivia Maciel MD Cosigner Signature (if applicable): Date CC: Jack Olmedo MD; Nivia Maciel MD Signed ABDOMEN SINGLE VIEW Observed: 05/23/2018 Status: F Source: [place] 12:37 PM [facility] [place] [facility] Imaging Services [address] [place] [address] Abdomen Single View MR#: [id number] Acct: [id number] Name: NAVEEN AKINS Rep #: [id number] : 1940 M 78 From: David Burr DO PCP: Jack Olmedo MD Status: ADM IN Study: Abdomen Single View Date of Exam: 05/23/18 Exam# [id number] Ordering Dr: Jh Gustafson MD STUDY: X-RAY [...] Signed: David BurrDO at 20:53 EST Tel [phone], Service support , CC: Jack Olmedo MD; Jh Gustafson MD [employer]: Signed BEDSIDE GLUCOSE Collected: 05/23/2018 Status: F Source: [place] 6:37 AM [facility] [place] TYPE CODE TESTS RESULT OUT OF RANGE REFERENCE UNITS LAB L501.080 70-110 mg/dL Normal BEDSIDE GLU 91 Result Comment: MANAGEMENT OF PATIENT CARE PER NURSING PROTOCOL Performed By: #### L501.080 #### [facility] Point of Care [address] [place] [address] ABDOMEN SINGLE VIEW Observed: 05/22/2018 Status: F Source: [place] 12:07 PM [facility] [place] [facility] Imaging Services [address] [place] [address] Abdomen Single View MR#: [id number] Acct: [id number] Name: NAVEEN AKINS Rep #: [id number] : 1940 78 From: Gigi Rowe MD PCP: Jack Olmedo MD Status: ADM IN Study: Abdomen Single View Date of Exam: 05/22/18 Exam# [id number] Ordering Dr: Jh Gustafson MD STUDY: X-RAY [...] CC: Jack Olmedo MD; Jh Gustafson MD [employer]: Signed BEDSIDE GLUCOSE Collected: 05/22/2018 Status: F Source: [place] 6:33 AM [facility] [place] TYPE CODE TESTS RESULT OUT OF REFERENCE UNITS RANGE LAB L501.080 70-110 mg/dL High BEDSIDE GLU 115 Result Comment: MANAGEMENT OF PATIENT CARE PER NURSING PROTOCOL Performed By: #### L501.080 #### [facility] [place] [address] CBC W/DIFF, AUTOMATED Collected: 05/21/2018 Status: F Source: [place] 8:10 AM [facility] [place] TYPE CODE TESTS RESULT OUT OF [...] Lymph 1.54 Performed By: #### L100.0100 #### [facility] [address] [facility] [place], [place], [address] BASIC METABOLIC Collected: 05/21/2018 Status: F Source: [place] PROFILE (BMP) 8:10 AM [facility] [place] TYPE CODE TESTS RESULT OUT OF [...] GAP 8 Performed By: #### L500.2500 #### [facility] [address] [place], [address] BEDSIDE GLUCOSE Collected: 05/21/2018 Status: F Source: [place] 6:32 AM [facility] [place] TYPE CODE TESTS RESULT OUT OF RANGE REFERENCE UNITS LAB L501.080 70-110 mg/dL Normal BEDSIDE GLU 102 Result Comment: MANAGEMENT OF PATIENT CARE PER NURSING PROTOCOL Performed By: #### L501.080 #### [facility] Point of Care [address] [place] [address] BEDSIDE GLUCOSE Collected: 05/20/2018 Status: F Source: [place] 6:40 AM [facility] [place] TYPE CODE TESTS RESULT OUT OF RANGE REFERENCE UNITS LAB L501.080 70-110 mg/dL Normal BEDSIDE GLU 100 Result Comment: MANAGEMENT OF PATIENT CARE PER NURSING PROTOCOL Performed By: #### L501.080 #### [facility] Point of Care [address] [place] [address] BEDSIDE GLUCOSE Collected: 05/19/2018 Status: F Source: [place] 6:43 AM [facility] [place] TYPE CODE TESTS RESULT OUT OF RANGE REFERENCE UNITS LAB L501.080 70-110 mg/dL Normal BEDSIDE GLU 87 Result Comment: MANAGEMENT OF PATIENT CARE PER NURSING PROTOCOL Performed By: #### L501.080 #### [facility] Point of Care [address] [place] [address] DISCHARGE SUMMARY Observed: 05/18/2018 Status: F Source: [place] 9:38 PM [facility] [place] [facility] Medical Records Department [address] [place] [address] Discharge Summary 05/18/18 2132 MR#: [id number] Acct: [id number] Name: NAVEEN AKINS Rep #: [id number] : 1940 78 From: Jh Gustafson MD PCP: Jack Olmedo MD Status: ADM IN Location: [place] [address] Discharge Date and Diagnosis Date of Admission: [...] Diet Food consistency:: Mechanical Soft/Ground Liquid Consistency:: [place] Thick Dietary Modifications:: [place] Thick Liquids Mechanical Soft Diet Type of Dietary Supplement:: Ensure Clear Is pt able to select menu?: No Diet Comments: BUILT UP UTENSILS-supervised meals-puree sides if pt/fam reqst-prune juice Clinical Impression(s) from Imaging Studies Chest X-Ray 05/07/18 15:38 KUB X-Ray 05/07/18 15:38 Labs (Last 48 Hours) Urine Color Yellow Urine Clarity Clear Urine pH 7.0 Ur Specific Causey 1.010 Urine Protein Negative Consultations 05/09/18 04:41 Consult: Onc/Wound/plastics and composites inspector Routine Comment: Reason for Consult:: Trach removed [...] not want any unnecessary medications. Discharge to [facility], Skilled for PT/OT/ST. - Physical Exam [...] Diet: No Restrictions, - - Mechanical Soft, [place] thick. Discharge Activity: Return to Normal Activity, [...] PO BID tablet 05/18/18 Sodium Chloride 0.65% [[place] Nasal Huger] 2 spray NASAL BID PRN PRN spray.btl 05/18/18 Primary Care Physician: Jack Olmedo MD [Primary Care Provider] - Please follow up with your Primary Care Physician in: 1 week. Please Follow Up With: Abdullahi Styles MD When: 2-3 weeks Please Follow Up With: PET SCAN HERE AT [facility] Disposition: Nursing Home facility Minutes spent on discharge:: 35 [...] MD; Jh Gustafson MD Signed TRANSFER TO [facility] Observed: 05/18/2018 Status: F Source: [facility] 9:32 PM [facility] [place] [facility] Medical Records Department [address] [place] [address] Transfer to [facility] MR#: [id number] Acct: [id number] Name: NAVEEN AKINS Rep #: [id number] : 1940 78 From: Jh Gustafson MD PCP: Jack Olmedo MD Status: ADM IN NAVEEN AKINS [id number] (Patient) (Health Ins. Claim No.) (Day of Discharge to Facility) Certification of patient admission REQUIRED AT TIME OF ADMISSION. I CERTIFY THAT POST-HOSPITAL F SERVICES ARE REQUIRED TO BE GIVEN ON AN IN-PATIENT BASIS BECAUSE OF THE ABOVE NAMED PATIENT'S NEED FOR [facility] CARE ON A CONTINUING BASIS FOR THE CONDITION(S) FOR WHICH HE/SHE WAS RECEIVING IN-PATIENT HOSPITAL SERVICES PRIOR TO HIS/HER TRANSFER TO THE ON LICENSE OF [facility]. 05/18/182131 <Electronically signed by Jh Gustafson MD> Date Jh Gustafson MD - Diet 05/07/18 10:45 Diet: Regular Diet Food consistency:: Mechanical Soft/Ground Liquid Consistency:: [place] Thick Dietary Modifications:: [place] Thick Liquids Mechanical Soft Diet Type of [...] Follow Up With: [facility] SCAN HERE AT [facility] 05/18/18 2132 <Electronically signed by Jh Gustafson MD> Date Jh Gustafson MD CC: Jack Olmedo MD Signed BEDSIDE GLUCOSE Collected: 05/18/2018 Status: F Source: [place] 6:51 AM [facility] [place] TYPE CODE TESTS RESULT OUT OF RANGE REFERENCE UNITS LAB L501.080 70-110 mg/dL Normal BEDSIDE GLU 93 Result Comment: MANAGEMENT OF PATIENT CARE PER NURSING PROTOCOL Performed By: #### L501.080 #### [facility] [place] [address] URINALYSIS, COMPLETE Collected: 05/18/2018 Status: F Source: [place] 3:20 AM [facility] [place] Order Comment: Order Date: 05/18/18 Comments: [...] URINE SEEN Performed By: #### L400.0001 #### [facility] [address] [place], [address] Observed: 05/18/2018 Status: F Source: [place] CULTURE, URINE 3:20 AM [facility] [place] Order Date: 05/18/18 Urine Culture ORGANISM 1: Mixed Gram Positive Organisms [place] Count 25,000-50,000 MIX CULTURE Mixed contaminants. Submit a new specimen if indicated. Performed By: #### M100.0650 #### [facility] [address] [place], [address] MODIFIED BARIUM Observed: 05/17/2018 Status: F Source: [place] SWALLOW STUDY 10:36 AM [facility] [place] [facility] Speech Pathology [address] [place] [address] Modified Barium Swallow Study MR#: [id number] Acct: [id number] Name: NAVEEN AKINS Rep #: [id number] : 1940 78 From: Viktoriya Hickey [facility]-WEAVER APPRENTICE, M.A. PRIMARY / SECONDARY DIAGNOSIS: Moderate Oropharyngeal Dysphagia (R13.12) REFERRING PHYSICIAN: Dr. Gustafson CURRENT DIET: NPO with PEG supplementation for all nutrition/hydration/medication DENTITION: natural teeth MENTAL STATUS: Alert and oriented to name and RESPIRATORY STATUS: oxygenating on room air; breath sounds clear upon auscultation per most recent clinical documentation spec. PREVIOUS MODIFIED BARIUM SWALLOW STUDY: unknown to this WEAVER APPRENTICE prior to [facility] admission REASON FOR REFERRAL: history of dysphagia [...] of blood. The pt was lif[facility]lighted to [facility] where on 01/12/2018 Dr. Paniagua performed emergent AAA repair. Pt then transferred to [facility] for recovery where he received a trach, PEG and condom catheter on 01/27/2018. Throughout this course of recovery, pt has had code blue called 5x due to vasovagal response thought to be secondary to Famotidine. Family was told at that time not to expect full recovery. Pt found also to have HCAP which was being treated with IV antibiotics. Pt currently on [facility] TCU for rehabilitation. While on TCU, pt [...] 1 Honey thickened liquid via cup: 2 [place] thickened liquid via cup: 2 [place] thickened liquid via cup:3 Thin liquids via [...] Current Status: SWALLOWING [id number] Goal Status: BALDEMAR Hikcey MA,CCC-WEAVER APPRENTICE 05/17/18 1036 <Electronically signed by Viktoriya Hickey [facility]-WEAVER APPRENTICE, M.A.> Date Viktoriya Hickey [facility]-WEAVER APPRENTICE, M.A. Co-Signature Required for all Medicare patients Date/Time Co-Signature CC: BEDSIDE GLUCOSE Collected: 05/17/2018 Status: F Source: [place] 6:41 AM [facility] [place] TYPE CODE TESTS RESULT OUT OF REFERENCE UNITS RANGE LAB L501.080 70-110 mg/dL High BEDSIDE GLU 113 Result Comment: MANAGEMENT OF PATIENT CARE PER NURSING PROTOCOL Performed By: #### L501.080 #### [facility] Point of Care [address] [place] [address] BEDSIDE GLUCOSE Collected: 05/16/2018 Status: F Source: [place] 6:41 AM [facility] [place] TYPE CODE TESTS RESULT OUT OF RANGE REFERENCE UNITS LAB L501.080 70-110 mg/dL Normal BEDSIDE GLU 99 Result Comment: MANAGEMENT OF PATIENT CARE PER NURSING PROTOCOL Performed By: #### L501.080 #### [facility] Point of Care [address] [place] [address] BEDSIDE GLUCOSE Collected: 05/15/2018 Status: F Source: [place] 6:35 AM [facility] [place] TYPE CODE TESTS RESULT OUT OF RANGE REFERENCE UNITS LAB L501.080 70-110 mg/dL Normal BEDSIDE GLU 98 Result Comment: MANAGEMENT OF PATIENT CARE PER NURSING PROTOCOL Performed By: #### L501.080 #### [facility] Point of Care [address] [place] [address] BEDSIDE GLUCOSE Collected: 05/14/2018 Status: F Source: [place] 8:20 PM [facility] [place] TYPE CODE TESTS RESULT OUT OF RANGE REFERENCE UNITS LAB L501.080 70-110 mg/dL Normal BEDSIDE GLU 99 Result Comment: MANAGEMENT OF PATIENT CARE PER NURSING PROTOCOL Performed By: #### L501.080 #### [facility] Point of Care [address] [place] [address] BEDSIDE GLUCOSE Collected: 05/14/2018 Status: F Source: [place] 12:02 PM [facility] [place] TYPE CODE TESTS RESULT OUT OF REFERENCE UNITS RANGE LAB L501.080 70-110 mg/dL High BEDSIDE GLU 122 Result Comment: MANAGEMENT OF PATIENT CARE PER NURSING PROTOCOL Performed By: #### L501.080 #### [facility] Point of Care [address] [place] [address] BEDSIDE GLUCOSE Collected: 05/14/2018 Status: F Source: [place] 6:39 AM [facility] [place] TYPE CODE TESTS RESULT OUT OF RANGE REFERENCE UNITS LAB L501.080 70-110 mg/dL Normal BEDSIDE GLU 92 Result Comment: MANAGEMENT OF PATIENT CARE PER NURSING PROTOCOL Performed By: #### L501.080 #### [facility] Point of Care [address] [place] [address] CBC W/DIFF, AUTOMATED Collected: 05/14/2018 Status: F Source: [place] 5:17 AM [facility] [place] TYPE CODE TESTS RESULT OUT OF [...] Lymph 1.52 Performed By: #### L100.0100 #### [facility] [address] [place] [address]. [place], [place], [address] BASIC METABOLIC Collected: 05/14/2018 Status: F Source: [place] PROFILE (BMP) 5:17 AM [facility] [place] TYPE CODE TESTS RESULT OUT OF [...] GAP 9 Performed By: #### L500.2500 #### [facility] [address] [facility] [address] BEDSIDE GLUCOSE Collected: 05/13/2018 Status: F Source: [place] 6:42 AM [facility] [place] TYPE CODE TESTS RESULT OUT OF RANGE REFERENCE UNITS LAB L501.080 70-110 mg/dL Normal BEDSIDE GLU 101 Result Comment: MANAGEMENT OF PATIENT CARE PER NURSING PROTOCOL Performed By: #### L501.080 #### [facility] Point of Care [address] [place] [address] BEDSIDE GLUCOSE Collected: 05/12/2018 Status: F Source: [place] 6:54 AM [facility] [place] TYPE CODE TESTS RESULT OUT OF RANGE REFERENCE UNITS LAB L501.080 70-110 mg/dL Normal BEDSIDE GLU 100 Result Comment: MANAGEMENT OF PATIENT CARE PER NURSING PROTOCOL Performed By: #### L501.080 #### [facility] Point of Care [address] [facility] [place] [address] ABDOMEN/PEL W ORAL CONT Observed: 05/11/2018 Status: F Source: [place] ONLY 11:21 PM [facility] [place] [facility] Imaging Services [address] [place] [address] Abdomen/Pel W ORAL Cont Only MR#: [id number] Acct: [id number] Name: NAVEEN AKINS Rep #: [id number] : 1940 M 78 From: Miya Silva MD PCP: Jack Olmedo MD Status: REG CLI Study: Abdomen/Pel W ORAL Cont Only Date of Exam: 05/12/18 Exam# [id number] Ordering Dr: Jh Gustafson MD STUDY: CT [...] CC: Jack Olmedo MD; Jh Gustafson MD [employer]: Signed BEDSIDE GLUCOSE Collected: 05/11/2018 Status: F Source: [place] 6:36 AM [facility] [place] TYPE CODE TESTS RESULT OUT OF RANGE REFERENCE UNITS LAB L501.080 70-110 mg/dL Normal BEDSIDE GLU 107 Result Comment: MANAGEMENT OF PATIENT CARE PER NURSING PROTOCOL Performed By: #### L501.080 #### [facility] Point of Care [address] [facility] [place] [address] BEDSIDE GLUCOSE Collected: 05/10/2018 Status: F Source: [place] 6:27 AM [facility] [place] TYPE CODE TESTS RESULT OUT OF RANGE REFERENCE UNITS LAB L501.080 70-110 mg/dL Normal BEDSIDE GLU 101 Result Comment: MANAGEMENT OF PATIENT CARE PER NURSING PROTOCOL Performed By: #### L501.080 #### [facility] Point of Care [address] [facility] [place] [address] 12 LEAD ELECTROCARDIOGRAM Observed: 05/09/2018 Status: F Source: [place] 3:46 PM [facility] [place] [facility] Cardiovascular Services [address] [place] [address] 12 Lead EKG 05/05/18 1043 MR#: [id number] Acct: [id number] Name: NAVEEN AKINS Kaylah Rep #: [id number] : 1940 78 From: Naveen Huffman MD Attending Dr: Corey Arizmendi Status: DIS IN Ordering Dr: Corey Arizmendi MD Date: 05/05/18 Location: [facility] Sex: M C Admitted: 05/05/18 Test Reason [...] Leftward axis Confirmed by NAVEEN HUFFMAN MD ([id number]), assistant film editor KATHY SILVA ([id number]) on 05/09/2018 3:45:49 PM Referred By: ARRON Confirmed By:NAVEEN HUFFMAN MD 05/09/18 0711 Date Naveen Huffman MD CC: Jack Olmedo MD; Corey Arizmendi Signed 12 LEAD ELECTROCARDIOGRAM Observed: 05/09/2018 Status: F Source: [place] 3:35 PM [facility] [place] [facility] Cardiovascular Services [address] [place] [address] 12 Lead EKG 05/04/18 2346 MR#: [id number] Acct: [id number] Name: NAVEEN AKINS Rep #: [id number] : 1940 78 From: Naveen Huffman MD Attending Dr: Corey Arizmendi Status: DIS IN Ordering Dr: Yuri Infante MD Date: 05/04/18 Location: [facility] Sex: M C Admitted: 05/05/18 Test Reason [...] Abnormal ECG Confirmed by NAVEEN HUFFMAN MD ([id number]), assistant film editor KATHY SILVA ([id number]) on 05/09/2018 3:34:49 PM Referred By: ARELIS Confirmed By:NAVEEN HUFFMAN MD 05/09/18 1538 Date Naveen Huffman MD CC: Jack Olmedo MD; Corey Arizmendi; Yuri Infante MD Signed BEDSIDE GLUCOSE Collected: 05/09/2018 Status: F Source: [place] 6:37 AM [facility] [place] TYPE CODE TESTS RESULT OUT OF RANGE REFERENCE UNITS LAB L501.080 70-110 mg/dL Normal BEDSIDE GLU 102 Result Comment: MANAGEMENT OF PATIENT CARE PER NURSING PROTOCOL Performed By: #### L501.080 #### [facility] Point of Care [address] [place] [address] HISTORY AND PHYSICAL Observed: 05/08/2018 Status: F Source: [place] EXAM 8:35 AM [facility] [place] [facility] Medical Records Department [address] [place] [address] History and Physical 05/06/18 1517 MR#: [id number] Acct: [id number] Name: NAVEEN AKINS Rep #: [id number] : 1940 78 From: Jh Gustafson MD PCP: Jack Olmedo MD Status: ADM IN Y Location: [facility] [place] [address] Problem List (1) Anoxic encephalopathy Status: Chronic [...] Psychiatric History: No pertinent psych hx Lives: [place]-Way Smoking Status: Never smoker Tobacco Use: Non-smoker [...] - Resident developed fever 05/07/2018, sent to [facility] ED, diagnosed with RUL pneumonia, Levaquin 750MG IV given, then 6 days PO. * Right lung nodule - 11mm, order PET scan to evaluate for malignancy. 05/08/18 0835 <Electronically signed by Jh Gustafson MD> Date Jh Gustafson MD Cosigner Signature: Date (if applicable) CC: Jack Olmedo MD; Jh Gustafson MD Signed EMERGENCY DEPARTMENT Observed: 05/07/2018 Status: F Source: [place] SUMMARY 11:55 PM [facility] [place] [facility] Medical Records Department [address] [place] [address] Emergency Department Summary 05/07/182137 MR#: [id number] Acct: [id number] Name: NAVEEN AKINS Rep #: [id number] : 1940 78 From: Mark Glass PCP: Jack Olmedo MD Status: REG ER - ER Visit Summary Date of Service: 05/07/18 Chief Complaint: Abnormal chest x-ray History of Present Illness: The patient is a 78 M sent here from TCU for an abnormal chest x-ray obtained today. Family present, reports patient complicated AAA rupture this past January leading to repair [facility]. Complication from wound. Patient has trach and [...] lobe nodule This note was generated with Cybersourceation software. It may contain incorrect words, spelling, [...] your Primary Care Provider. Call [facility] ([phone]) or report to the closest Emergency Room. Call 911 if necessary. 05/07/18 8682 <Electronically signed by Mark Glass> Date Mark Glass Cosigner Signature (If Indicated): Date CC: Jack Olmedo MD ABDOMEN/PELVIS W IV CONT Observed: 05/07/2018 Status: F Source: [place] ONLY 9:03 PM [facility] [place] [facility] Imaging Services [address] [place] [address] Abdomen/Pelvis W IV Cont ONLY MR#: [id number] Acct: [id number] Name: NAVEEN AKINS Rep #: [id number] : 1940 M 78 From: Michael Moss DO PCP: Honorio LOREDO,Jack Status: DEP ER Study: Abdomen/Pelvis W IV Cont ONLY Date of Exam: 05/07/18 Exam# [id number] Ordering Dr: Mark Michaels DO STUDY: CT [...] Michael Moss DO at 21:51 EST Tel [phone], Service support , CC: Jack Olmedo MD; Mark Michaels [employer]: Signed URINALYSIS, COMPLETE Collected: 05/07/2018 Status: F Source: [place] 8:51 PM [facility] [place] Order Comment: Order Date: 05/07/18 How [...] URINE SEEN Performed By: #### L400.0001 #### [facility] [address] [facility] [place], [address] CHEST WITH CONTRAST Observed: 05/07/2018 Status: F Source: [place] 8:36 PM [facility] [place] [facility] Imaging Services [address] [place] [address] Chest WITH Contrast MR#: [id number] Acct: [id number] Name: NAVEEN AKINS Rep #: [id number] : 1940 M 78 From: Keely Castellano MD PCP: Jack Olmedo MD Status: REG ER Study: Chest WITH Contrast Date of Exam: 05/07/18 Exam# [id number] Ordering Dr: Mark Michaels DO STUDY: CT [...] Castellano MD at 23:39 EST Tel Direct: [phone], Service support , CC: Jack Olmedo MD; Mark Michaels [employer]: Signed Observed: 05/07/2018 Status: F Source: [place] RESPIRATORY PANEL 4:45 PM [facility] [place] Order Date: 05/07/18 RP PANEL [...] acid amplification Performed By: #### M100.638 #### [facility] [address] [place] [address]. [place], [address] ABDOMEN SINGLE VIEW Observed: 05/07/2018 Status: F Source: [place] (PORTABLE) 3:47 PM [facility] REPOSITORY [facility] Imaging Services [address] [place] [address] Abdomen Single View (Portable) MR#: [id number] Acct: [id number] Name: NAVEEN AKINS Rep #: [id number] : 1940 M 78 From: El Malik MD PCP: Jack Olmedo MD Status: ADM IN Study: Abdomen Single View (Portable) Date of Exam: 05/07/18 Exam# [id number] Ordering Dr: Jh Gustafson MD STUDY: X-RAY [...] CC: Jack Olmedo MD; Jh Gustafson MD [employer]: Signed CHEST 1 VIEW Observed: 05/07/2018 Status: F Source: [place] (PORTABLE) 3:47 PM [facility] REPOSITORY [facility] Imaging Services [address] [place] [address] Chest 1 View (Portable) MR#: [id number] Acct: [id number] Name: NAVEEN AKINS Rep #: [id number] : 1940 M 78 From: El Malik MD PCP: Jack Olmedo MD Status: ADM IN Study: Chest 1 View (Portable) Date of Exam: 05/07/18 Exam# [id number] Ordering Dr: Jh Gustafson MD STUDY: X-RAY [...] CC: Jack Olmedo MD; Jh Gustafson MD [employer]: Signed DISCHARGE SUMMARY Observed: 05/07/2018 Status: F Source: [place] 12:23 PM [facility] [place] [facility] Medical Records Department [address] [place] [address] Discharge Summary 05/06/18 1445 MR#: [id number] Acct: [id number] Name: NAVEEN AKINS Kaylah Rep #: [id number] : 1940 78 From: Tarik TAPIA PCP: Jack Olmedo MD Status: DIS IN Y Location: [place] [id number] <Tarik Darby - Last Filed: 05/06/18 14:49> [...] CT/CTA Head W/WO Contrast IMPRESSION: 1. Patent [place]. No intracranial aneurysm, vascular malformation, [...] pmhx of ruptured AAA, cardiac arrest at [facility], subsequently has been undergoing rehab in the [...] are stable. This note was generated with Amadix dictation software. It may contain incorrect words, [...] Hgb 9.4 L Hct 28.7 L Disposition: Nursing Home facility Minutes spent on discharge:: 26 Patient Condition:: Stable Meaningful Use Info Meaningful Use Diagnoses (Choose all that apply): None applicable Code Visit Inpatient E AND M: 10000 Disch Hosp 05/06/18 1502 <Electronically signed by Tarik Darby PA> Date Tarik TAPIA 05/07/18 1223<Electronically signed by Corey Arizmendi MD> Cosigner Signature (if applicable): Date Corey Arizmendi MD CC: WILLIE Darby; Jack Olmedo MD; Corey Arizmendi; Abdullahi Styles MD Signed CBC W/DIFF, AUTOMATED Collected: 05/07/2018 Status: F Source: [place] 6:51 AM [facility] [place] TYPE CODE TESTS RESULT OUT OF [...] Lymph 1.55 Performed By: #### L100.0100 #### [facility] [address] [place], [address] BASIC METABOLIC Collected: 05/07/2018 Status: F Source: [place] PROFILE ([facility]) 6:51 AM [facility] [place] TYPE CODE TESTS RESULT OUT OF [...] GAP 8 Performed By: #### L500.2500 #### [facility] [address] [place], [address] TRANSFER TO [facility] Observed: 05/06/2018 Status: F Source: [facility] 3:35 PM [facility] [place] [facility] Medical Records Department [address] [place] [address] Transfer to [facility] Care MR#: [id number] Acct: [id number] Name: NAVEEN AKINS Rep #: [id number] : 1940 78 From: Tarik TAPIA PCP: Jack Olmedo MD Status: DIS IN NAVEEN AKINS (Patient) (Health Ins. Claim No.) (Day of Discharge to Facility) Certification of patient admission REQUIRED AT TIME OF ADMISSION. I CERTIFY THAT POST-HOSPITAL ECF SERVICES ARE REQUIRED TO BE GIVEN ON AN IN-PATIENT BASIS BECAUSE OF THE ABOVE NAMED PATIENT'S NEED FOR [facility] CARE ON A CONTINUING BASIS FOR THE CONDITION(S) FOR WHICH HE/SHE WAS RECEIVING IN-PATIENT HOSPITAL SERVICES PRIOR TO HIS/HER TRANSFER TO THE ON LICENSE OF [facility]. 05/06/18 1220 <Electronically signed by Tarik TAPIA> Date Tarik TAPIA - Diet 05/05/18 15:14 Diet: Nothing Per Oral Dietary Modifications:: Mechanical Soft Diet [place] Thick Liquids Is pt able to select menu?: No OK for Pills. Per Yard Jockey: Rec continuous feedlings of [employer] HN at [...] Status: F Source: [place] HEMATOCRIT 6:28 AM [facility] [place] TYPE CODE TESTS RESULT OUT OF RANGE REFERENCE UNITS LAB L100.1300 13.0-16.5 g/dl Low HGB 9.4 LAB L100.1400 40-54 % Low HCT 28.7 Performed By: #### L100.0600 #### [facility] [address] [place], [address] PULMONARY VISIT REPORT Observed: 05/05/2018 Status: F Source: [place] 5:54 PM [facility] [place] [facility] [address] [place] [address] OFFICE VISIT Date of Service: 05/03/18 MR#: [id number] Acct: [id number] Name: NAVEEN AKINS Rep #: [id number] : 1940 Provider: Abimbola Morris Age/Sex: 78/M Location: [facility] Status: Signed Assessment AND Plan Problems 1. [...] Instructions Plan Detail Follow Up 3 Months ([facility]) [facility] Hospital FU: Chief Complaint: Weakness HPI Comments Details: Patient had his trach removed about 1 week ago. Daughter states that the patient just became aware within the last week the patient has become more aware of what has happened. MORROW. Patient has been in [facility], [facility] and [facility]. AAA ruptured 01/11/18. Not using any aeresols regularly. He was given albuterol once yesterday and 2 days prior at daughters request. 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 Accompanied by: Daughter Is patient [...] ECHOCARDIOGRAM COMPLETE Observed: 05/05/2018 Status: F Source: [place] 5:37 PM [facility] [place] [facility] Cardiovascular Services [address] [place] [address] Echo Complete 05/05/18 0827 MR#: [id number] Acct: [id number] Name: NAVEEN AKINS Rep #: [id number] : 1940 78 From: Naveen Huffman MD Attending Dr: Corey Arizmendi Status: ADM BURKE Ordering Dr: Genaro Galeano MD Date: 05/05/18 Location: [facility] Sex: M C Admitted: 05/05/18 Reason For [...] MD CC: Jack Olmedo MD; [facility]; Genaro Galeano MD Date Dictated: 05/05/18 0827 Date Transcribed: 05/05/18 1736 [employer]: Signed CONSULTATION Observed: 05/05/2018 Status: F Source: [place] 1:11 PM [facility] [place] [facility] Medical Records Department [address] [place] [address] Consultation 05/05/18 1014 MR#: [id number] Acct: [id number] Name: NAVEEN AKINS Rep #: [id number] : 1940 78 From: Abdullahi Styles MD PCP: Jack Olmedo MD Status: ADM BURKE Y Location: [place] [address] Reason for Consult Date of Consultation: 05/05/18 [...] underwent cpr for entire helicopter ride [facility] to [facility]. son notes progressive improvement in cognition since [...] had left facial droop and decreased hand accounting auditor on the left side. Stroke alert was [...] 05/05/2018 Status: F Source: [place] 1:10 PM [facility] [place] [facility] Imaging Services [address] [place] [address] Brain W/WO Contrast MR#: [id number] Acct: [id number] Name: NAVEEN AKINS Rep #: [id number] : 1940 M 78 From: Benigno Fatima MD PCP: Jack Olmedo MD Status: ADM IN Study: Brain W/WO Contrast Date of Exam: 05/05/18 Exam# [id number] Ordering Dr: Abdullahi Styles MD STUDY: MRI [...] CC: Jack Olmedo MD; Abdullahi Styles MD [employer]: Signed BEDSIDE GLUCOSE Collected: 05/05/2018 Status: F Source: [place] 12:56 PM [facility] [place] TYPE CODE TESTS RESULT OUT OF RANGE REFERENCE UNITS LAB L501.080 70-110 mg/dL Normal BEDSIDE GLU 110 Result Comment: MANAGEMENT OF PATIENT CARE PER NURSING PROTOCOL Performed By: #### L501.080 #### [facility] Point [place] [address] DISCHARGE SUMMARY Observed: 05/05/2018 Status: F Source: [place] 8:29 AM [facility] [place] [facility] Medical Records Department [address] [place] [address] Discharge Summary 05/05/18825 MR#: [id number] Acct: [id number] Name: NAVEEN AKINS Rep #: [id number] : 1940 78 From: Jh Gustafson MD PCP: Honorio LOREDO,Jack Status: DIS IN Y Location: [place] [address] Discharge Date and Diagnosis - Problem List [...] sided weakness, stroke team activated. Discharge to [facility] Department for evaluation, admission to hospital. [...] 112 H Discharge Diet: - - Puree, [place] thick, Twocal 40ML/hour. Discharge Activity: Use Walker [...] Nelson Mathews When: July 2018 Disposition: Acute [facility] Hospital Minutes spent on discharge:: 30 [...] DISCHARGE INSTRUCTION Observed: 05/05/2018 Status: F Source: [place] 8:26 AM [facility] [place] [facility] Medical Records Department [address] [place] [address] Instructions for Home/Discharge Instructions 05/05/18823 MR#: [id number] Acct: [id number] Name: NAVEEN AKINS Rep #: [id number] : 1940 78 From: Jh Gustafson MD PCP: Jack Olmedo MD Status: DIS IN - Discharge Diagnoses Current Active Problems: Current Active and Chronic Problems (Last Reviewed 05/05/18 @ 04:49 by Genaro Galeano MD) Stroke-like symptoms (Acute) Your food should be the consistency of: Puree Your liquids should be the consistency of: [place] Thick Discharge Activity: Use Walker Weight Bearing [...] AND PHYSICAL Observed: 05/05/2018 Status: F Source: [place] EXAM 5:26 AM [facility] [place] [facility] Medical Records Department [address] [place] [address] History and Physical 05/05/18 0352 MR#: [id number] Acct: [id number] Name: NAVEEN AKINS Rep #: [id number] : 1940 78 From: Genaro Galeano MD PCP: Jack Olmedo MD Status: ADM BURKE Y Location: [place] [address] Problem List (1) Stroke-like symptoms Status: Acute [...] had left facial droop and decreased hand accounting auditor on the left side. Stroke alert was [...] Reports: Focal weakness - Decrease left hand accounting auditor. Denies: Numbness, Tingling Psychiatric: Denies: Anxiety, Depression, [...] thought that he was at [facility]. Patient did not know the [...] continued. Code Visit OBSV E AND M: 05724 Initial observation care L3 05/05/18 0526 <Electronically signed by Genaro Galeano MD> Date Genaro Galeano MD Cosigner Signature: Date (if applicable) CC: Jack Olmedo MD; Genaro Galeano MD Signed BEDSIDE GLUCOSE Collected: 05/05/2018 Status: F Source: [place] 3:30 AM [facility] [place] TYPE CODE TESTS RESULT OUT OF RANGE REFERENCE UNITS LAB L501.080 70-110 mg/dL Normal BEDSIDE GLU 93 Result Comment: MANAGEMENT OF PATIENT CARE PER NURSING PROTOCOL Performed By: #### L501.080 #### [facility] Point of Care [address] [place], [place] [address] TROPONIN-I Collected: 05/05/2018 Status: F Source: [place] 2:35 AM [facility] [place] TYPE CODE TESTS RESULT OUT OF RANGE REFERENCE UNITS LAB L501.4010 <0.045 ng/mL Normal < 0.015 TROPONIN-I Result Comment: TROPONIN-I EXPECTED VALUES <0.045 Negative 0.045 - 0.590 Consistent with Cardiac Damage > OR = 0.600 Critical Value Not every elevated troponin is indicative of HI. These values should be used with clinical judgement in examining the patient's clinical picture for diagnosis. To establish a diagnosis of HI versus myocardial injury, there must be a demonstrated rise and/or fall in the troponin values, in addition to ischemic symptoms, EKG changes, new regional wall motion abnormality, and/or angiographical evidence. PLEASE NOTE: REFERENCE RANGES EDITED 17 Performed By: #### L501.4010 #### [facility] [address] [facility] [place], [place], [address] BASIC METABOLIC Collected: 05/05/2018 Status: F Source: [place] PROFILE (BMP) 2:35 AM [facility] [place] TYPE CODE TESTS RESULT OUT OF [...] 11 Performed By: #### L500.2500, L500.4100 #### [facility] [address] [place], [address] LIPID PROFILE Collected: 05/05/2018 Status: F Source: [place] 2:35 AM [facility] [place] TYPE CODE TESTS RESULT OUT OF [...] 35 Performed By: #### L500.2500, L500.4100 #### [facility] [address] [place], [address] EMERGENCY DEPARTMENT Observed: 05/05/2018 Status: F Source: [place] SUMMARY 1:08 AM [facility] [place] [facility] Medical Records Department [address] [place], [place] [address] [address] Emergency Department Summary 05/05/18 0104 MR#: [id number] Acct: [id number] Name: NAVEEN AKINS Rep #: [id number] : 1940 78 From: Yuri Infante MD [...] Impression: Stroke This note was generated with Amadix dictation software. It may contain incorrect words, [...] problems, contact your Primary Care Provider. Call [facility] ([phone]) or report to the closest Emergency Room. Call 911 if necessary. 05/05/18 0108 <Electronically signed by Yuri Infante MD> Date Yuri Infante MD Cosigner Signature (If Indicated): Date CC: Jack Olmedo MD CHEST 1 VIEW Observed: 05/04/2018 Status: F Source: [place] 11:46 PM [facility] [place] [facility] Imaging Services [address] [place] [address] Chest 1 View MR#: [id number] Acct: [id number] Name: NAVEEN AKINS Rep #: [id number] : 1940 78 From: Nehemiah Earl MD PCP: Jack Olmedo MD Status: [facility] ER Study: Chest 1 View Date of Exam: 05/04/18 Exam# [id number] Ordering Dr: Yuri Infante MD STUDY: X-RAY [...] CC: Jack Olmedo MD; Yuri Infante MD [employer]: Signed CTA NECK W/WO Observed: 05/04/2018 Status: F Source: [place] CONTRAST 11:46 PM [facility] [place] [facility] Imaging Services [address] [place] [address] CTA Neck W/WO Contrast MR#: [id number] Acct: [id number] Name: NAVEEN AKINS Rep #: [id number] : 1940 78 From: Kristie Rubio MD PCP: Jack Olmedo MD Status: REG ER Study: CTA Neck W/WO Contrast Date of Exam: 05/04/18 Exam# [id number] Ordering Dr: Yuri Infante MD HISTORY: LEFT [...] CC: Jack Olmedo MD; Yuri Infante MD [employer]: Signed CTA HEAD W/WO Observed: 05/04/2018 Status: F Source: [place] CONTRAST 11:46 PM [facility] [place] [facility] Imaging Services [address] [place] [address] CTA Head W/WO Contrast MR#: [id number] Acct: [id number] Name: NAVEEN AKINS Rep #: [id number] : 1940 M 78 From: Kristie Rubio MD PCP: Jack Olmedo MD Status: REG ER Study: CTA Head W/WO Contrast Date of Exam: 05/04/18 Exam# [id number] Ordering Dr: Yuri Infante MD HISTORY: LEFT SIDE FACIAL DROOP TECHNIQUE: Routine [place]/brain CT angiogram protocol was performed [...] CT/CTA Head W/WO Contrast IMPRESSION: 1. Patent [place]. No intracranial aneurysm, vascular malformation, [...] CC: Jack Olmedo MD; Yuri Infante MD [employer]: Signed CBC W/DIFF, AUTOMATED Collected: 05/04/2018 Status: F Source: [place] 11:45 PM [facility] [place] TYPE CODE TESTS RESULT OUT OF [...] Lymph 2.45 Performed By: #### L100.0100 #### [facility] [address] [facility] [place], [place], [id number] PROTHROMBIN TIME W/INR Collected: 05/04/2018 Status: F Source: [place] 11:45 PM [facility] [place] TYPE CODE TESTS RESULT OUT OF RANGE REFERENCE UNITS LAB L300.4150 11.7-14.9 SECONDS High PROTIME 15.1 LAB L300.4200 Normal INR 1.2 Performed By: #### L300.3900, L300.4310 #### [facility] [address] [facility] [place], [address] PARTIAL THROMBOPLAST Collected: 05/04/2018 Status: F Source: [place] TIME 11:45 PM [facility] [place] TYPE CODE TESTS RESULT OUT OF REFERENCE UNITS RANGE LAB L300.4310 24.1-36.2 Seconds High PTT 45.7 Performed By: #### L300.3900, L300.4310 #### [facility] [address] [place], [place], [address] BASIC METABOLIC Collected: 05/04/2018 Status: F Source: [place] PROFILE (BMP) 11:45 PM [facility] [place] TYPE CODE TESTS RESULT OUT OF [...] 6 Performed By: #### L500.2500, L501.4010 #### [facility] [address] [place], [address] TROPONIN-I Collected: 05/04/2018 Status: F Source: [place] 11:45 PM [facility] [place] TYPE CODE TESTS RESULT OUT OF RANGE REFERENCE UNITS LAB L501.4010 <0.045 ng/mL Normal < 0.015 TROPONIN-I Result Comment: TROPONIN-I EXPECTED VALUES <0.045 Negative 0.045 - 0.590 Consistent with Cardiac Damage > OR = 0.600 Critical Value Not every elevated troponin is indicative of HI. These values should be used with clinical judgement in examining the patient's clinical picture for diagnosis. To establish a diagnosis of HI versus myocardial injury, there must be a demonstrated rise and/or fall in the troponin values, in addition to ischemic symptoms, EKG changes, new regional wall motion abnormality, and/or angiographical evidence. PLEASE NOTE: REFERENCE RANGES EDITED 17 Performed By: #### L500.2500, L501.4010 #### [facility] [address] [place], [address] HEMOGLOBIN A1C Collected: 05/04/2018 Status: F Source: [place] 11:45 PM [facility] [place] TYPE CODE TESTS RESULT OUT OF RANGE REFERENCE UNITS LAB L501.9985 4.2-6.3 % Normal HGB A1C 4.5 Performed By: #### L501.9985 #### [facility] [address] [place], [address] BEDSIDE GLUCOSE Collected: 05/04/2018 Status: F Source: [place] 11:44 PM [facility] [place] TYPE CODE TESTS RESULT OUT OF RANGE REFERENCE UNITS LAB L501.080 70-110 mg/dL Normal BEDSIDE GLU 104 Result Comment: MANAGEMENT OF PATIENT CARE PER NURSING PROTOCOL Performed By: #### L501.080 #### [facility] Point of Care [address] [place], [place] [address] BRAIN/HEAD WITHOUT Observed: 05/04/2018 Status: F Source: [place] CONTRAST 11:29 PM [facility] [place] [facility] Imaging Services [address] [place] [address] Brain/Head without Contrast MR#: [id number] Acct: [id number] Name: NAVEEN AKINS Rep #: [id number] : 1940 M 78 From: El Malik MD PCP: Jack Olmedo MD Status: [facility] ER Study: Brain/Head without Contrast Date of Exam: 05/04/18 Exam# [id number] Ordering Dr: Genaro Galeano MD STUDY: CT [...] CC: Jack Olmedo MD; Genaro Galeano MD [employer]: Signed BEDSIDE GLUCOSE Collected: 05/04/2018 Status: F Source: [place] 11:24 PM [facility] [place] TYPE CODE TESTS RESULT OUT OF REFERENCE UNITS RANGE LAB L501.080 70-110 mg/dL High BEDSIDE GLU 112 Result Comment: MANAGEMENT OF PATIENT CARE PER NURSING PROTOCOL Performed By: #### L501.080 #### [facility] Point of Care [address] [place] [address] BEDSIDE GLUCOSE Collected: 05/04/2018 Status: F Source: [place] 6:36 AM [facility] [place] TYPE CODE TESTS RESULT OUT OF RANGE REFERENCE UNITS LAB L501.080 70-110 mg/dL Normal BEDSIDE GLU 100 Result Comment: MANAGEMENT OF PATIENT CARE PER NURSING PROTOCOL Performed By: #### L501.080 #### [facility] Point of Care [address] [place] [address] CBC W/DIFF, AUTOMATED Collected: 05/04/2018 Status: F Source: [place] 5:20 AM [facility] [place] TYPE CODE TESTS RESULT OUT OF [...] Lymph 1.45 Performed By: #### L100.0100 #### [facility] [address] [place], [place], [address] COMPREHENSIVE METABOLIC Collected: 05/04/2018 Status: F Source: [place] [facility] 5:20 AM [facility] [place] TYPE CODE TESTS RESULT OUT OF [...] GAP 6 Performed By: #### L500.4050 #### [facility] [address] [place], [address] BEDSIDE GLUCOSE Collected: 05/03/2018 Status: F Source: [place] 7:35 AM [facility] [place] TYPE CODE TESTS RESULT OUT OF RANGE REFERENCE UNITS LAB L501.080 70-110 mg/dL Normal BEDSIDE GLU 103 Result Comment: Orders Followed MANAGEMENT OF PATIENT CARE PER NURSING PROTOCOL Performed By: #### L501.080 #### [facility] [place] [address] CBC W/DIFF, AUTOMATED Collected: 05/03/2018 Status: F Source: [place] 5:20 AM [facility] [place] TYPE CODE TESTS RESULT OUT OF [...] Lymph 1.98 Performed By: #### L100.0100 #### [facility] [address] [place], [address] BASIC METABOLIC Collected: 05/03/2018 Status: F Source: [place] PROFILE (BMP) 5:20 AM [facility] [place] TYPE CODE TESTS RESULT OUT OF [...] GAP 9 Performed By: #### L500.2500 #### [facility] [address] [place], [place], [address] BEDSIDE GLUCOSE Collected: 05/02/2018 Status: F Source: [place] 7:36 AM [facility] [place] TYPE CODE TESTS RESULT OUT OF RANGE REFERENCE UNITS LAB L501.080 70-110 mg/dL Normal BEDSIDE GLU 98 Result Comment: MANAGEMENT OF PATIENT CARE PER NURSING PROTOCOL Performed By: #### L501.080 #### [facility] Point of Care [address] [place] [address] BEDSIDE GLUCOSE Collected: 05/01/2018 Status: F Source: [place] 6:32 AM [facility] [place] TYPE CODE TESTS RESULT OUT OF RANGE REFERENCE UNITS LAB L501.080 70-110 mg/dL Normal BEDSIDE GLU 96 Result Comment: MANAGEMENT OF PATIENT CARE PER NURSING PROTOCOL Performed By: #### L501.080 #### [facility] Point of Care [address] [place] [address] BEDSIDE GLUCOSE Collected: 04/30/2018 Status: F Source: [place] 6:37 AM [facility] [place] TYPE CODE TESTS RESULT OUT OF REFERENCE UNITS RANGE LAB L501.080 70-110 mg/dL High BEDSIDE GLU 114 Result Comment: MANAGEMENT OF PATIENT CARE PER NURSING PROTOCOL Performed By: #### L501.080 #### [facility] Point of Care [address] [place] [address] BEDSIDE GLUCOSE Collected: 04/29/2018 Status: F Source: [place] 6:52 AM [facility] [place] TYPE CODE TESTS RESULT OUT OF REFERENCE UNITS RANGE LAB L501.080 70-110 mg/dL High BEDSIDE GLU 117 Result Comment: MANAGEMENT OF PATIENT CARE PER NURSING PROTOCOL Performed By: #### L501.080 #### [facility] Point of Care [address] [place] [address] BEDSIDE GLUCOSE Collected: 04/28/2018 Status: F Source: [place] 7:43 AM [facility] [place] TYPE CODE TESTS RESULT OUT OF REFERENCE UNITS RANGE LAB L501.080 70-110 mg/dL High BEDSIDE GLU 116 Result Comment: MANAGEMENT OF PATIENT CARE PER NURSING PROTOCOL Performed By: #### L501.080 #### [facility] Point of Care [address] [place] [address] BEDSIDE GLUCOSE Collected: 04/27/2018 Status: F Source: [place] 6:31 AM [facility] [place] TYPE CODE TESTS RESULT OUT OF RANGE REFERENCE UNITS LAB L501.080 70-110 mg/dL Normal BEDSIDE GLU 100 Result Comment: MANAGEMENT OF PATIENT CARE PER NURSING PROTOCOL Performed By: #### L501.080 #### [facility] Point of Care [address] [place] [address] BEDSIDE GLUCOSE Collected: 04/26/2018 Status: F Source: [place] 2:13 PM [facility] [place] TYPE CODE TESTS RESULT OUT OF RANGE REFERENCE UNITS LAB L501.080 70-110 mg/dL Normal BEDSIDE GLU 98 Result Comment: MANAGEMENT OF PATIENT CARE PER NURSING PROTOCOL Performed By: #### L501.080 #### [facility] Point of Care [address] [place] [address] BEDSIDE GLUCOSE Collected: 04/26/2018 Status: F Source: [place] 6:30 AM [facility] [place] TYPE CODE TESTS RESULT OUT OF RANGE REFERENCE UNITS LAB L501.080 70-110 mg/dL Normal BEDSIDE GLU 104 Result Comment: MANAGEMENT OF PATIENT CARE PER NURSING PROTOCOL Performed By: #### L501.080 #### [facility] Point of Care [address] [place] [address] BASIC METABOLIC Collected: 04/26/2018 Status: F Source: [place] PROFILE (BMP) 5:15 AM [facility] [place] TYPE CODE TESTS RESULT OUT OF [...] GAP 9 Performed By: #### L500.2500 #### [facility] [address] [facility] [address] BEDSIDE GLUCOSE Collected: 04/25/2018 Status: F Source: [place] 6:25 AM [facility] [place] TYPE CODE TESTS RESULT OUT OF RANGE REFERENCE UNITS LAB L501.080 70-110 mg/dL Normal BEDSIDE GLU 109 Result Comment: MANAGEMENT OF PATIENT CARE PER NURSING PROTOCOL Performed By: #### L501.080 #### [facility] Point of Care [address] [place] [address] BEDSIDE GLUCOSE Collected: 04/24/2018 Status: F Source: [place] 6:40 AM [facility] [place] TYPE CODE TESTS RESULT OUT OF REFERENCE UNITS RANGE LAB L501.080 70-110 mg/dL High BEDSIDE GLU 134 Result Comment: MANAGEMENT OF PATIENT CARE PER NURSING PROTOCOL Performed By: #### L501.080 #### [facility] Point of Care [address] [place] [address] BEDSIDE GLUCOSE Collected: 04/22/2018 Status: F Source: [place] 6:44 AM [facility] [place] TYPE CODE TESTS RESULT OUT OF RANGE REFERENCE UNITS LAB L501.080 70-110 mg/dL Normal BEDSIDE GLU 105 Result Comment: MANAGEMENT OF PATIENT CARE PER NURSING PROTOCOL Performed By: #### L501.080 #### [facility] Point of Care [address] [place] [address] BEDSIDE GLUCOSE Collected: 04/21/2018 Status: F Source: [place] 6:25 AM [facility] [place] TYPE CODE TESTS RESULT OUT OF REFERENCE UNITS RANGE LAB L501.080 70-110 mg/dL High BEDSIDE GLU 111 Result Comment: MANAGEMENT OF PATIENT CARE PER NURSING PROTOCOL Performed By: #### L501.080 #### [facility] Point of Care [address] [place] [address] BEDSIDE GLUCOSE Collected: 04/20/2018 Status: F Source: [place] 6:24 AM [facility] [place] TYPE CODE TESTS RESULT OUT OF REFERENCE UNITS RANGE LAB L501.080 70-110 mg/dL High BEDSIDE GLU 121 Result Comment: MANAGEMENT OF PATIENT CARE PER NURSING PROTOCOL Performed By: #### L501.080 #### [facility] Point of Care [address] [place] [address] SWALLOWING FUNCTION Observed: 04/20/2018 Status: F Source: [place] W/VIDEO 12:00 AM [facility] [place] [facility] Imaging Services [address] [place] [address] Swallowing Function w/Video MR#: [id number] Acct: [id number] Name: NAVEEN AKINS Rep #: [id number] : 1940 M 78 From: Bertrand Steel MD PCP: Jack Olmedo MD Status: ADM IN Study: Swallowing Function w/Video Date of Exam: 04/20/18 Exam# [id number] Ordering Dr: Jh Gustafson MD STUDY: SWALLOWING [...] more information and recommendations. Electronically Signed: Bertrand Stele MD at 13:52 EST Tel [phone], Service support , CC: Jack Olmedo MD; Jh Gustafson MD [employer]: Signed BEDSIDE GLUCOSE Collected: 04/19/2018 Status: F Source: [place] 6:39 AM [facility] [place] TYPE CODE TESTS RESULT OUT OF RANGE REFERENCE UNITS LAB L501.080 70-110 mg/dL Normal BEDSIDE GLU 99 Result Comment: MANAGEMENT OF PATIENT CARE PER NURSING PROTOCOL Performed By: #### L501.080 #### [facility] Point of Care [facility] [place] [address] CBC W/DIFF, AUTOMATED Collected: 04/19/2018 Status: F Source: [place] 5:25 AM [facility] [place] TYPE CODE TESTS RESULT OUT OF [...] Lymph 1.51 Performed By: #### L100.0100 #### [facility] [address] [place], [address] BASIC METABOLIC Collected: 04/19/2018 Status: F Source: [place] PROFILE (BMP) 5:25 AM [facility] [place] TYPE CODE TESTS RESULT OUT OF [...] GAP 10 Performed By: #### L500.2500 #### [facility] [address] [facility] [place], [place], [address] URINALYSIS, COMPLETE Collected: 04/18/2018 Status: F Source: [place] 5:30 PM [facility] [place] Order Comment: Order Date: 04/18/18 How [...] URINE SEEN Performed By: #### L400.0001 #### [facility] [address] [facility] [place], [address] BEDSIDE GLUCOSE Collected: 04/18/2018 Status: F Source: [place] 3:47 PM [facility] [place] TYPE CODE TESTS RESULT OUT OF REFERENCE UNITS RANGE LAB L501.080 70-110 mg/dL High BEDSIDE GLU 112 Result Comment: MANAGEMENT OF PATIENT CARE PER NURSING PROTOCOL Performed By: #### L501.080 #### [facility] Point of Care [address] [place], [place] [address] CBC W/DIFF, AUTOMATED Collected: 04/18/2018 Status: F Source: [place] 12:30 PM [facility] [place] TYPE CODE TESTS RESULT OUT OF [...] 1.59 Performed By: #### L100.0100, L500.4050 #### [facility] [address] [place], [address] COMPREHENSIVE METABOLIC Collected: 04/18/2018 Status: F Source: [place] [facility] 12:30 PM [facility] [place] TYPE CODE TESTS RESULT OUT OF [...] 8 Performed By: #### L100.0100, L500.4050 #### [facility] [address] [place], [address] CHEST 1 VIEW Observed: 04/18/2018 Status: F Source: [place] (PORTABLE) 12:07 PM [facility] REPOSITORY [facility] Imaging Services [address] [address] Chest 1 View (Portable) MR#: [id number] Acct: [id number] Name: NAVEEN AKINS Rep #: [id number] : 1940 M 78 From: Bertrand Steel MD PCP: Jack Olmedo MD Status: ADM IN Study: Chest 1 View (Portable) Date of Exam: 04/18/18 Exam# [id number] Ordering Dr: Jh Gustafson MD STUDY: X-RAY [...] Bertrand Steel MD at 15:25 EST Tel [phone], Service support , CC: Jack Olmedo MD; Jh Gustafson MD [employer]: Signed ABDOMEN SINGLE VIEW Observed: 04/18/2018 Status: F Source: [place] (PORTABLE) 12:07 PM [facility] REPOSITORY [facility] Imaging Services [address] [place] [address] Abdomen Single View (Portable) MR#: [id number] Acct: [id number] Name: NAVEEN AKINS Rep #: [id number] : 1940 78 From: Bertrand Steel MD PCP: Jack Olmedo MD Status: ADM IN Study: Abdomen Single View (Portable) Date of Exam: 04/18/18 Exam# [id number] Ordering Dr: Jh Gustafson MD STUDY: X-RAY [...] Bertrand Steel MD at 15:27 EST Tel [phone], Service support , CC: Jack Olmedo MD; Jh Gustafson MD [employer]: Signed COMPREHENSIVE METABOLIC Collected: 04/15/2018 Status: F Source: [place] PROFIL 2:11 PM [facility] [place] TYPE CODE TESTS RESULT OUT OF [...] GAP 6 Performed By: #### L500.4050 #### [facility] [address] [place], [place], [address] CBC W/DIFF, AUTOMATED Collected: 04/15/2018 Status: F Source: [place] 2:11 PM [facility] [place] [facility] TYPE CODE TESTS RESULT OUT OF [...] Lymph 1.63 Performed By: #### L100.0100 #### [facility] [address] [place], [place], [address] PARTIAL THROMBOPLAST Collected: 04/15/2018 Status: F Source: [place] TIME 2:11 PM [facility] [place] [facility] TYPE CODE TESTS RESULT OUT OF REFERENCE UNITS RANGE LAB L300.4310 24.1-36.2 Seconds High PTT 41.1 Performed By: #### L300.4310 #### [facility] [address] [facility] [place], [address] URINALYSIS, COMPLETE Collected: 04/12/2018 Status: F Source: [place] 4:45 AM [facility] [place] [facility] Order Comment: Order Date: 04/12/18 Comments: [...] SEEN Performed By: #### L100.0100, L400.0001 #### [facility] [address] [place], [address] CBC W/DIFF, AUTOMATED Collected: 04/11/2018 Status: F Source: [place] 10:18 PM [facility] [place] TYPE CODE TESTS RESULT OUT OF [...] 1.51 Performed By: #### L100.0100, L400.0001 #### [facility] [address] [place], [place], [address] BASIC METABOLIC Collected: 04/11/2018 Status: F Source: [place] PROFILE (BMP) 10:18 PM [facility] [place] [facility] TYPE CODE TESTS RESULT OUT OF [...] GAP 7 Performed By: #### L500.2500 #### [facility] [address] [facility] [place], [address] CHEST PA AND LATERAL Observed: 04/11/2018 Status: F Source: [place] 9:54 PM [facility] [place] Imaging Services [address] [place] [address] Chest PA and Lateral MR#: [id number] Acct: [id number] Name: NAVEEN AKINS Rep #: [id number] : 1940 M 78 From: Win Ramos MD PCP: Jack Olmedo MD Status: ADM IN Study: Chest PA and Lateral Date of Exam: 04/11/18 Exam# [id number] Ordering Dr: Jh Gustafson MD STUDY: X-RAY [...] CC: Jack Olmedo MD; Jh Gustafson MD [employer]: Signed ABDOMEN SINGLE VIEW Observed: 04/11/2018 Status: F Source: [place] 9:54 PM [facility] [place] [facility] Imaging Services [address] [place] [address] Abdomen Single View MR#: [id number] Acct: [id number] Name: NAVEEN AKINS Rep #: [id number] : 1940 M 78 From: Win Ramos MD PCP: Jack Olmedo MD Status: ADM IN Study: Abdomen Single View Date of Exam: 04/11/18 Exam# [id number] Ordering Dr: Jh Gustafson MD STUDY: X-RAY [...] CC: Jack Olmedo MD; Jh Gustafson MD [employer]: Signed WRIST 2 VIEWS Observed: 04/11/2018 Status: F Source: [place] 11:25 AM [facility] [place] [facility] Imaging Services [address] [place] [address] Wrist 2 Views MR#: [id number] Acct: [id number] Name: NAVEEN AKINS Rep #: [id number] : 1940 M 78 From: Win Ramos MD PCP: Jack Olmedo MD Status: ADM IN Study: Wrist 2 Views Date of Exam: 04/11/18 Exam# [id number] Ordering Dr: hJ Gustafson MD STUDY: X-RAY - LEFT WRIST [...] CC: Jack Olmedo MD; Jh Gustafson MD [employer]: Signed URINALYSIS, COMPLETE Collected: 04/09/2018 Status: F Source: [place] 4:40 PM [facility] [place] [facility] Order Comment: How was Urine Obtained? [...] Normal CRYSTAL Performed By: #### L400.0001 #### [facility] [address] [place], [place], [address] BASIC METABOLIC Collected: 04/09/2018 Status: F Source: [place] PROFILE (BMP) 6:20 AM [facility] [place] TYPE CODE TESTS RESULT OUT OF [...] GAP 6 Performed By: #### L500.2500 #### [facility] [address] [facility] [place], [address] CHEST 1 VIEW Observed: 04/09/2018 Status: F Source: [place] (PORTABLE) 12:15 AM [facility] [place] [facility] Imaging Services [address] [place] [address] Chest 1 View (Portable) MR#: [id number] Acct: [id number] Name: NAVEEN AKINS Rep #: [id number] : 1940 M 78 From: Kristie Rubio MD PCP: Honorio LOREDO,Jack Status: ADM IN Study: Chest 1 View (Portable) Date of Exam: 04/09/18 Exam# [id number] Ordering Dr: Jh Gustafson MD HISTORY: Cough. [...] CC: Jack Olmedo MD; Jh Gustafson MD [employer]: Signed CBC W/DIFF, AUTOMATED Collected: 04/08/2018 Status: F Source: [place] 4:57 PM [facility] [place] [facility] TYPE CODE TESTS RESULT OUT OF [...] Lymph 1.54 Performed By: #### L100.0100 #### [facility] [address] [place], [address] BASIC METABOLIC Collected: 04/08/2018 Status: F Source: [place] PROFILE ([facility]) 4:57 PM [facility] [place] [facility] TYPE CODE TESTS RESULT OUT OF [...] GAP 7 Performed By: #### L500.2500 #### [facility] [address] [place], [address] CBC W/DIFF, AUTOMATED Collected: 04/05/2018 Status: F Source: [place] 5:35 AM [facility] [place] [facility] TYPE CODE TESTS RESULT OUT OF [...] Lymph 1.42 Performed By: #### L100.0100 #### [facility] [address] [place], [place], [address] BASIC METABOLIC Collected: 04/05/2018 Status: F Source: [place] PROFILE (BMP) 5:35 AM [facility] [place] [facility] TYPE CODE TESTS RESULT OUT OF [...] GAP 9 Performed By: #### L500.2500 #### [facility] [address] [place], [address] HISTORY AND PHYSICAL Observed: 04/04/2018 Status: F Source: [place] EXAM 8:04 PM [facility] [place] Medical Records Department [address] [place] [address] History and Physical 04/04/181939 MR#: [id number] Acct: [id number] Name: NAVEEN AKINS Rep #: [id number] : 1940 78 From: Jh Gustafson MD PCP: Honorio LOREDO,Jack Status: ADM IN Location: [place] [id number] ADDENDUM by Jh Gustafson MD on 04/04/18 [...] encephalopathy, trach, peg, [facility] resident transferred to [facility] Department 04/01/2018 with change in mental [...] Psychiatric History: No pertinent psych hx Lives: Half-Way Smoking Status: Never smoker Tobacco Use: Non-smoker [...] signed by Jh Gustafson MD> Date Jh Gustasfon MD Cosigner Signature: Date (if applicable) CC: Jack Olmedo MD; Jh Gustafson MD Signed DISCHARGE SUMMARY Observed: 04/04/2018 Status: F Source: [place] 5:16 PM [facility] [place] [facility] Medical Records Department [address] [place] [address] Discharge Summary 04/04/18 1129 MR#: [id number] Acct: [id number] Name: NAVEEN AKINS Rep #: [id number] : 1940 78 From: Marisol Montiel MD PCP: Jack Olmedo MD Status: DIS IN Y Location: [place] [address] Discharge Date and Diagnosis Date of Admission: [...] for possible weaning of tracheostomy in the snf facility 4. Hypokalemia, replaced 5. Acute on [...] Mathews MD When: in 4 weeks Disposition: Nursing Home facility Minutes spent on discharge:: 50 Patient Condition:: Stable Medical Necessity - Tobacco Use Smoking Status: Never smoker Tobacco Use: Non-smoker Meaningful Use Info Meaningful Use Diagnoses (Choose all that apply): None applicable Code Visit Inpatient E AND M: 48190 Disch Hosp 04/04/18 1716 <Electronically signed by Marisol Montiel MD> Date Marisol Montiel MD Cosigner Signature (if applicable): Date CC: Marisol Montiel MD; Jack Olmedo MD Signed 12 LEAD ELECTROCARDIOGRAM Observed: 04/04/2018 Status: F Source: [place] 11:33 AM [facility] [place] [facility] Cardiovascular Services [address] [place] [address] 12 Lead EKG 03/29/18 0935 MR#: [id number] Acct: [id number] Name: NAVEEN AKINS Rep #: [id number] : 1940 78 From: Moy Gee MD Attending Dr: Sj LOREDO,[employer] Status: DIS IN Ordering Dr: Darrell Gomez MD Date: 03/29/18 Location: [facility] Sex: M C Admitted: 03/28/18 Test [...] in Anterolateral leads Confirmed by MOY GEE ([id number]), assistant film editor KATHY SILVA ([id number]) on 04/04/2018 11:33:34 AM Referred By: Jh Gustafson Confirmed By:MOY GEE 04/04/18 1133 Date Moy Gee MD CC: Jack Olmedo MD; Darrell Gomez MD; Jh Gustafson MD Signed TRANSFER TO [facility] Observed: 04/04/2018 Status: F Source: [facility] 11:28 AM [facility] [place] [facility] Medical Records Department [address] [place] [address] Transfer to [facility] MR#: [id number] Acct: [id number] Name: NAVEEN AKINS Rep #: [id number] : 1940 78 From: Marisol Montiel MD PCP: Jack Olmedo MD Status: ADM IN NAVEEN AKINS (Patient) (Health Ins. Claim No.) (Day of Discharge to Facility) Certification of patient admission REQUIRED AT TIME OF ADMISSION. I CERTIFY THAT POST-HOSPITAL ON LICENSE OF [facility] SERVICES ARE REQUIRED TO BE GIVEN ON AN IN-PATIENT BASIS BECAUSE OF THE ABOVE NAMED PATIENT'S NEED FOR [facility] CARE ON A CONTINUING BASIS FOR THE CONDITION(S) FOR WHICH HE/SHE WAS RECEIVING IN-PATIENT HOSPITAL SERVICES PRIOR TO HIS/HER TRANSFER TO THE ON LICENSE OF [facility]. 04/04/18 1128 <Electronically signed by Marisol Montiel MD> Date Marisol Montiel MD - Diet 04/01/18 05:50 Diet: Nothing Per Oral Tube Feed: TwoCal tube feeds, see below in [employer] notes - Routine Orders/Code Status O2 Liters [...] 04/04/2018 Status: F Source: [place] 8:39 AM [facility] [place] [facility] Cardiovascular Services [address] [place] [address] 12 Lead EKG 04/01/18 0303 MR#: [id number] Acct: [id number] Name: NAVEEN AKINS Rep #: [id number] : 1940 78 From: Moy Gee MD Attending Dr: Marisol Montiel MD Status: ADM IN Ordering Dr: Tim Fernando MD Date: 04/01/18 Location: [facility] Sex: M C Admitted: 04/01/18 Test Reason [...] normal ECG Confirmed by MOY GEE ([id number]), assistant film editor KATHY SILVA ([id number]) on 04/04/2018 8:39:18 AM Referred By: JUAN JOSE Confirmed By:MOY GEE 04/04/18 0839 Date Moy Gee MD CC: Marisol Montiel MD; Jack Olmedo MD; Tim Fernando MD Signed CONSULTATION Observed: 04/04/2018 Status: F Source: [place] 7:22 AM [facility] [place] [facility] Medical Records Department [address] [place] [address] Consultation 04/03/18 1343 MR#: [id number] Acct: [id number] Name: NAVEEN AKINS Rep #: [id number] : 1940 78 From: Nelson Mathews MD PCP: Jack Olmedo MD Status: ADM IN Y Location: [place] [id number] Problem List (1) Abdominal aortic aneurysm, ruptured Status: Resolved (2) Cardiac arrest Status: Resolved (3) Anoxic encephalopathy Status: Chronic (4) Dysphagia Status: Chronic Qualifiers: Dysphagia type: oropharyngeal phase Qualified Code(s): R13.12 - Dysphagia, oropharyngeal phase (5) HCAP (healthcare-associated pneumonia) Status: Acute (6) Coronary artery disease Status: Chronic Qualifiers: Coronary Disease-Associated Artery/Lesion type: unspecified vessel or lesion type [place] vs. transplanted heart: unspecified whether [place] or transplanted heart Associated angina: angina presence unspecified Qualified Code(s): I25.10 - Atherosclerotic heart disease of [place] coronary artery without angina pectoris (7) Hypertension Status: Chronic Qualifiers: Hypertension type: essential hypertension Qualified Code(s): I10 - Essential (primary) hypertension Reason for Consult Date of Consultation: 04/03/18 Reason for Consultation: Chronic respiratory failure History of Present Illness: The patient is a 78 year old M, with past medical history listed below, who presented to [facility] on 04/01/2018 from the TCU secondary to change in mental status. An TREASURY ASSOCIATE had been called on TCU secondary to [...] recommendations. Patient reportedly was transferred to [facility] secondary to an emergency AAA repair. [...] respiratory difficulties. 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 Patient did not have any inhalers at [...] Psychiatric History: No pertinent psych hx Lives: Half-Way Smoking Status: Never smoker Tobacco Use: Non-smoker [...] prognosis Code Visit Inpatient E AND M: 20698 Init Hosp L2 04/04/18 0722 <Electronically signed by Nelosn Mathews MD> Date Nelson Mathews MD Cosigner Signature (if applicable): Date CC: Kelton Mcclendon MD; Nelson Mathews MD; Jack Olmedo MD Signed RENAL PROFILE Collected: 04/04/2018 Status: F Source: [place] 6:07 AM [facility] [place] TYPE CODE TESTS RESULT OUT OF [...] CO2 25.0 Performed By: #### L500.3600 #### [facility] [address] [place] [address]. [place], [address] Observed: 04/03/2018 Status: F Source: [place] CULTURE, SPUTUM 3:35 PM [facility] [place] Comments: tracheal aspirate obtained at 1535 [...] <=20 S (NF) indicates non-formulary drug at [facility]. Approval by Infectious Disease Specialist required before non-formulary drugs may be ordered and/or dispensed. Performed By: #### M100.0800 #### [facility] [address] [place], [address] Observed: 04/03/2018 Status: F Source: [place] STOOL OCCULT BLOOD 3:20 PM [facility] [place] STOB iFOB Occult Blood Negative Performed By: #### M100.7900 #### [facility] [address] [place], [place], [address] Observed: 04/03/2018 Status: F Source: [place] LEGIONELLA ANTIGEN 2:54 PM [facility] [place] Legionella, UR Legionella Antigen result interpretation: Negative Presumptive negative for Legionella pneumophila serogroup 1 antigen in urine, suggesting no recent or current infection. Legionella Ag, Urine Negative (See interpretation below) Performed By: #### M300.4500 #### [facility] [address] [place], [place], [address] STREP Observed: 04/03/2018 Status: F Source: [place] PNEUMONIAE ANTIG(UR,CSF) 2:54 PM [facility] [place] S pneumo Ag URINE INTERPRETATION Negative Urine Presumptive negative for pneumococcal pneumonia, suggesting no current or recent pneumococcal infection. Infection due to S pneumoniae cannot be ruled out since the antigen present in the sample may be below the detection limit of the test. Strep pneumo Test Negative URINE (See interpretation below) Performed By: #### M300.4600 #### [facility] [address] [place], [place], [address] CBC W/DIFF, AUTOMATED Collected: 04/03/2018 Status: F Source: [place] 4:30 AM [facility] [place] TYPE CODE TESTS RESULT OUT OF [...] Lymph 1.55 Performed By: #### L100.0100 #### [facility] [address] [place], [place], [address] VANCOMYCIN, TROUGH Collected: 04/03/2018 Status: F Source: [place] LEVEL 4:30 AM [facility] [place] Order Comment: Time Medication is to [...] (Ventilator/Healtcare Associated) -Sepsis PLEASE CONTACT PHARMACY SERVICES (#[id number]) FOR INTERPRETATION OF RESULTS. Performed By: #### L501.8820 #### [facility] [address] [place], [place], [address] RENAL PROFILE Collected: 04/03/2018 Status: F Source: [place] 4:30 AM [facility] [place] TYPE CODE TESTS RESULT OUT OF [...] CO2 23.0 Performed By: #### L500.3600 #### [facility] [address] [place], [place], [address] CHEST 1 VIEW Observed: 04/03/2018 Status: F Source: [place] (PORTABLE) 12:01 AM [facility] [place] [facility] Imaging Services [address] [place] [address] Chest 1 View (Portable) MR#: [id number] Acct: [id number] Name: NAVEEN AKINS Rep #: [id number] : 1940 M 78 From: Tim Drew PCP: Jack Olmedo MD Status: ADM IN Study: Chest 1 View (Portable) Date of Exam: 04/03/18 Exam# [id number] Ordering Dr: Marisol Montiel MD STUDY: X-RAY [...] CC: Marisol Montiel MD; Jack Olmedo MD [employer]: Signed URINALYSIS, COMPLETE Collected: 04/02/2018 Status: F Source: [place] 10:20 PM [facility] [place] Order Comment: Order Date: 04/01/18 How [...] URINE SEEN Performed By: #### L400.0001 #### [facility] [address] [place], [address] CONSULTATION Observed: 04/02/2018 Status: F Source: [place] 11:06 AM [facility] [place] [facility] Medical Records Department [address] [place] [address] Consultation 04/02/18 1052 MR#: [id number] Acct: [id number] Name: NAVEEN AKINS Kaylah Rep #: [id number] : 1940 78 From: Abdullahi Styles MD PCP: Jack Olmedo MD Status: ADM IN Location: [place] [address] Reason for Consult Date of Consultation: 04/02/18 Reason for Consultation: spells History of Present Illness: The patient is a 78 year old M with recurrent spells always associated with tube feeds. 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 Discussion with family and decision [...] Psychiatric History: No pertinent psych hx Lives: Half-Way Smoking Status: Never smoker Tobacco Use: Non-smoker [...] 04/02/2018 Status: F Source: [place] 11:06 AM [facility] [place] [facility] Pulmonary Services/Neurology [address] [place] [address] MR#: [id number] Acct: [id number] Name: NAVEEN AKINS Rep #: [id number] : 1940 78 From: Abdullahi Styles MD Referring Dr: Marisol Montiel MD Status: ADM IN Ordering Dr: Date: Location: [place] [id number] Sex: M C - Electroencephalogram Date of [...] Dictated: 04/02/18 1037 Date Transcribed: 04/02/18 1037 [employer]: NF Signed CBC W/DIFF, AUTOMATED Collected: 04/02/2018 Status: F Source: [place] 5:45 AM [facility] [place] TYPE CODE TESTS RESULT OUT OF [...] Lymph 1.49 Performed By: #### L100.0100 #### [facility] [address] [place], [address] BASIC METABOLIC Collected: 04/02/2018 Status: F Source: [place] PROFILE (BMP) 5:45 AM [facility] [place] TYPE CODE TESTS RESULT OUT OF [...] GAP 10 Performed By: #### L500.2500 #### [facility] [address] [place], [address] PHOSPHORUS Collected: 04/02/2018 Status: F Source: [place] 5:45 AM [facility] [place] Order Comment: Comments: as add on test TYPE CODE TESTS RESULT OUT OF RANGE REFERENCE UNITS LAB L501.2300 2.5-4.9 mg/dL Normal PHOS 3.6 Performed By: #### L501.2300, L501.5200 #### [facility] [address] [place], [address] MAGNESIUM Collected: 04/02/2018 Status: F Source: [place] 5:45 AM [facility] [place] Order Comment: Comments: as add on test TYPE CODE TESTS RESULT OUT OF RANGE REFERENCE UNITS LAB L501.5200 1.6-2.6 mg/dL Normal MG 1.6 Performed By: #### L501.2300, L501.5200 #### [facility] [address] [facility] [place], [address] Observed: 04/01/2018 Status: F Source: [place] CULTURE, SPUTUM 10:55 PM [facility] [place] Has pt arrived? Y Gram Stain [...] <=20 S (NF) indicates non-formulary drug at [facility]. Approval by Infectious Disease Specialist required before non-formulary drugs may be ordered and/or dispensed. Performed By: #### M100.0800 #### [facility] [address] [place], [address] Observed: 04/01/2018 Status: F Source: [place] CULTURE, SPUTUM 12:00 PM [facility] [place] Has pt arrived? Y Gram Stain [...] <=20 S (NF) indicates non-formulary drug at [facility]. Approval by Infectious Disease Specialist required before non-formulary drugs may be ordered and/or dispensed. Performed By: #### M100.0800 #### [facility] [address] [facility] [place], [address] DISCHARGE SUMMARY Observed: 04/01/2018 Status: F Source: [facility] 8:54 AM [facility] [place] [facility] Medical Records Department [address] [place] [address] Discharge Summary 04/01/18 0853 MR#: [id number] Acct: [id number] Name: NAVEEN AKINS Kaylah Rep #: [id number] : 1940 78 From: Jh Gustafson MD PCP: Honorio LOREDO,Jack Status: DIS IN Y Location: [place] [address] Discharge Date and Diagnosis - Problem List [...] to TCU for rehabilitation, strengthening, prior to usp care placement. Resident's prognosis is poor. 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 Past 24 Hrs POC Glucose [...] DISCHARGE INSTRUCTION Observed: 04/01/2018 Status: F Source: [place] 8:52 AM [facility] [place] [facility] Medical Records Department [address] [place] [address] [place] [address] Instructions for Home/Discharge Instructions 04/01/18 0850 MR#: [id number] Acct: [id number] Name: NAVEEN AKINS Rep #: [id number] : 1940 78 From: Jh Gustafson MD [...] AND PHYSICAL Observed: 04/01/2018 Status: F Source: [place] EXAM 6:02 AM [facility] [place] [facility] Medical Records Department [address] [place] [address] History and Physical 04/01/18 0420 MR#: [id number] Acct: [id number] Name: NAVEEN AKINS Rep #: [id number] : 1940 78 From: Ny Lewis PCP: Jack Olmedo MD Status: ADM IN Location: [place] [address] Problem List (1) HCAP (healthcare-associated pneumonia) Status: [...] Artery/Lesion type: unspecified vessel or lesion type [place] vs. transplanted heart: unspecified whether [place] or transplanted heart Associated angina: angina presence unspecified Qualified Code(s): I25.10 - Atherosclerotic heart disease of [place] coronary artery without angina pectoris (11) Hypertension [...] ruptured abdominal aortic aneurysm prompting transition to [facility] with emergency AAA repair w/ serial CODE BLUE (x5) with serial unresponsive episodes, required trach, peg who was transitioned to the TCU for further therapies once cleared from LTAC who now presents to the [facility] ED on 04/01/18 following recurrent unresponsive episode where he is noted to stare off, less interactive, less oriented 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 Discussion with family and decision [...] Psychiatric History: No pertinent psych hx Lives: Half-Way Smoking Status: Never smoker Tobacco Use: Non-smoker [...] (Acute) Subjective: Seated upright in bed, recent TREASURY ASSOCIATE, currently awake, not answering questions, family notes [...] ruptured abdominal aortic aneurysm prompting transition to [facility] with emergency AAA repair w/ serial CODE BLUE (x5) with serial unresponsive episodes, required trach, peg who was transitioned to the TCU for further therapies once cleared from LTAC who now presents to the [facility] ED on 04/01/18 following recurrent unresponsive episode where he is noted to stare off, less interactive, less oriented 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 Discussion with family and decision [...] as this TF is not available at [facility], they will purchase and bring. (3) Recent AAA, s/p repair: 01/11/2018 CT scan of abdomen/pelvis showed ruptured abdominal aortic aneurysm following which patient was intubated, transfused 4 units trauma blood, lifeflighted to [facility] and underwent 01/12/18 emergent AAA repair. (4) Anoxic Brain Injury, s/p serial CODE BLUE x 5: s/p trach, PEG secondary to severity of presentation, oropharyngeal dysphagia w/ continued TFs w/ nutrition consultation. Patient was as noted #2, having serial episodes at [facility] and LTAC w/ similar unresponsive events, awaiting EEG results as performed day prior, seizure precautions. Neurology consulted. (5) CAD: Continue regimen asa, BB, not on statin currently. (6) Normocytic Anemia, Fe Deficiency, Worsened, Recent DIC during [facility] prolonged admission: Admission Hgb 6.8, decreased from [...] minutes. Code Visit Inpatient E AND M: 66748 Init Hosp L3 Procedures: 44449 Advncd Care Plan 30 Min 04/01/18 0602 <Electronically signed by Ny Lewis > Date Ny Lewis Cosigner Signature: Date (if applicable) CC: Ny Lewis; Jack Olmedo MD Signed EMERGENCY DEPARTMENT Observed: 04/01/2018 Status: F Source: [place] SUMMARY 4:47 AM [facility] [place] [facility] Medical Records Department [address] [place] [address] Emergency Department Summary 04/01/18 0237 MR#: [id number] Acct: [id number] Name: MABLENAVEEN Rep #: [id number] : 1940 78 From: Tim Fernando MD [...] cm AAA. He was life flighted to [facility]. He underwent emergency aortic grafting. His postoperative course was complicated by multiple cardiac arrests. Patient now has diagnosis of hypoxic encephalopathy. He has a trach and a PEG. He was hospitalized at an LTAC, but then had another a few bouts of cardiac arrest. He was transferred back to [facility]. It was thought that it may been [...] Aspiration pneumonia This note was generated with [employer] dictation software. It may contain incorrect words, [...] your Primary Care Provider. Call [facility] ([phone]) or report to the closest Emergency Room. Call 911 if necessary. 04/01/18 0447 <Electronically signed by Tim Fernando MD> Date Tim Fernando MD Cosigner Signature (If Indicated): Date CC: Jack Olmedo MD TYPE AND SCREEN Collected: 04/01/2018 Status: F Source: [facility] 4:04 [facility] REPOSITORY Order Comment: CMV NEG? N Number [...] NEGATIVE Screen Performed By: #### B101.7450 #### [facility] [address] [place], [address] RC Collected: 04/01/2018 Status: F Source: [place] 4:04 AM [facility] [place] TYPE CODE TESTS RESULT OUT OF REFERENCE UNITS RANGE LAB U100.0000 [id number] TRANSFUSED PRODUCT: T AND S with Crossmatch, Red Cells COUNT: 1 Performed By: #### U100.0000 #### [facility] - refer to report for specific site RC Collected: 04/01/2018 Status: F Source: [place] 4:04 AM [facility] [place] TYPE CODE TESTS RESULT OUT OF REFERENCE UNITS RANGE LAB U100.0000 [id number] TRANSFUSED PRODUCT: T AND S with Crossmatch, Red Cells COUNT: 1 Performed By: #### U100.0000 #### [facility] - refer to report for specific site CBC W/DIFF, AUTOMATED Collected: 04/01/2018 Status: F Source: [place] 2:58 AM [facility] [place] TYPE CODE TESTS RESULT OUT OF [...] Lymph 1.44 Performed By: #### L100.0100 #### [facility] [address] [place], [place], [address] COMPREHENSIVE METABOLIC Collected: 04/01/2018 Status: F Source: [place] PROFIL 2:58 AM [facility] [place] TYPE CODE TESTS RESULT OUT OF [...] GAP 8 Performed By: #### L500.4050 #### [facility] [address] [place], [address] PHOSPHORUS Collected: 04/01/2018 Status: F Source: [place] 2:58 AM [facility] [place] TYPE CODE TESTS RESULT OUT OF RANGE REFERENCE UNITS LAB L501.2300 2.5-4.9 mg/dL Normal PHOS 3.1 Performed By: #### L501.2300, L501.5200 #### [facility] [address] [place], [address] MAGNESIUM Collected: 04/01/2018 Status: F Source: [place] 2:58 AM [facility] [place] TYPE CODE TESTS RESULT OUT OF RANGE REFERENCE UNITS LAB L501.5200 1.6-2.6 mg/dL Normal MG 1.7 Performed By: #### L501.2300, L501.5200 #### [facility] [address] [place], [address] CHEST 1 VIEW Observed: 04/01/2018 Status: F Source: [place] (PORTABLE) 2:38 AM [facility] [place] [facility] Imaging Services [address] [place] [address] Chest 1 View (Portable) MR#: [id number] Acct: [id number] Name: NAVEEN AKNIS Rep #: [id number] : 1940 M 78 From: Santa Travis MD PCP: Honorio LOREDO,Jack Status: REG ER Study: Chest 1 View (Portable) Date of Exam: 04/01/18 Exam# [id number] Ordering Dr: Tim Fernando MD STUDY: X-RAY [...] CC: Jack Olmedo MD; Tim Fernando MD [employer]: Signed BRAIN/HEAD WITHOUT Observed: 04/01/2018 Status: F Source: [place] CONTRAST 2:38 AM [facility] [place] [facility] Imaging Services [address] [place] [address] Brain/Head without Contrast MR#: [id number] Acct: [id number] Name: NAVEEN AKINS Rep #: [id number] : 1940 78 From: Santa Travis MD PCP: Jack Olmedo MD Status: REG ER Study: Brain/Head without Contrast Date of Exam: 04/01/18 Exam# [id number] Ordering Dr: Tim Fernando MD STUDY: CT [...] CC: Jack Olmedo MD; Tim Fernando MD [employer]: Signed BEDSIDE GLUCOSE Collected: 04/01/2018 Status: F Source: [place] 2:03 AM [facility] [place] CODE TESTS RESULT OUT OF REFERENCE UNITS RANGE LAB L501.080 70-110 mg/dL High BEDSIDE GLU 121 Result Comment: MANAGEMENT OF PATIENT CARE PER NURSING PROTOCOL Performed By: #### L501.080 #### [facility] Point of Care [address] [place], [place] [address] Observed: 04/01/2018 Status: F Source: [place] RESPIRATORY PANEL 12:00 AM [facility] [place] RP PANEL ADENOVIRUS Not Detected [...] acid amplification Performed By: #### M100.638 #### [facility] [address] [place], [place], [address] URINALYSIS, COMPLETE Collected: 03/31/2018 Status: F Source: [place] 6:50 PM [facility] [place] Order Comment: How was Urine Obtained? [...] URINE SEEN Performed By: #### L400.0001 #### [facility] [address] [place], [address] Observed: 03/31/2018 Status: F Source: [place] CULTURE, URINE 6:50 PM [facility] [place] Urine Culture RESULTS CALLED TO /NURSE LINE 04/03/18 0920 Agata Venegas. Copy of report sent to Infection Control Printer MS#[id number] 04/03/18 0937 DCANNON. ORGANISM 1: Enterobacter cloacae complex [place] Count 11,000-25,000 ORGANISM 2: Vancomycin Resist. E. faecilis [place] Count 1000-10,000 Enterobacter cloacae complex: REACTION Amikacin [...] <=20 S (NF) indicates non-formulary drug at [facility]. Approval by Infectious Disease [...] <=20 S (NF) indicates non-formulary drug at [facility]. Approval by Infectious Disease [...] >=32 R (NF) indicates non-formulary drug at [facility]. Approval by Infectious Disease Specialist required before non-formulary drugs may be ordered and/or dispensed. * CLSI guidelines does not recommend testing of cephalosporins. This interpretation is deduced from Beta-lactam/penicillin results. Performed By: #### M100.0650 #### [facility] [address] [place], [address] CBC W/DIFF, AUTOMATED Collected: 03/31/2018 Status: F Source: [place] 4:35 PM [facility] [place] TYPE CODE TESTS RESULT OUT OF [...] Lymph 1.76 Performed By: #### L100.0100 #### [facility] [address] [place], [place], [address] BASIC METABOLIC Collected: 03/31/2018 Status: F Source: [place] PROFILE (BMP) 4:35 PM [facility] [place] TYPE CODE TESTS RESULT OUT OF [...] GAP 7 Performed By: #### L500.2500 #### [facility] [address] [facility] [place], [address] CHEST 1 VIEW Observed: 03/31/2018 Status: F Source: [place] (PORTABLE) 4:00 PM [facility] [place] [facility] Imaging Services [address] [place] [address] Chest 1 View (Portable) MR#: [id number] Acct: [id number] Name: NAVEEN AKINS Rep #: [id number] : 1940 M 78 From: Santa Travis MD PCP: Jack Olmedo MD Status: ADM IN Study: Chest 1 View (Portable) Date of Exam: 03/31/18 Exam# [id number] Ordering Dr: Jh Gustafson MD STUDY: X-RAY [...] CC: Jack Olmedo MD; Jh Gustafson MD [employer]: Signed ABDOMEN SINGLE VIEW Observed: 03/31/2018 Status: F Source: [place] (PORTABLE) 4:00 PM [facility] [place] [facility] Imaging Services [address] [place] [address] Abdomen Single View (Portable) MR#: [id number] Acct: [id number] Name: NAVEEN AKINS Rep #: [id number] : 1940 M 78 From: Santa Travis MD PCP: Jack Olmedo MD Status: ADM IN Study: Abdomen Single View (Portable) Date of Exam: 03/31/18 Exam# [id number] Ordering Dr: Jh Gustafson MD STUDY: X-RAY [...] CC: Jack Olmedo MD; Jh Gustafson MD [employer]: Signed BEDSIDE GLUCOSE Collected: 03/31/2018 Status: F Source: [place] 7:14 AM [facility] [place] TYPE CODE TESTS RESULT OUT OF RANGE REFERENCE UNITS LAB L501.080 70-110 mg/dL Normal BEDSIDE GLU 104 Result Comment: MANAGEMENT OF PATIENT CARE PER NURSING PROTOCOL Performed By: #### L501.080 #### [facility] Point of Care [address] [place], [place] [address] HH, HEMOGLOBIN AND Collected: 03/31/2018 Status: F Source: [place] HEMATOCRIT 6:54 AM [facility] [place] TYPE CODE TESTS RESULT OUT OF RANGE REFERENCE UNITS LAB L100.1300 13.0-16.5 g/dl Low HGB 7.3 LAB L100.1400 40-54 % Low HCT 22.5 Performed By: #### L100.0600 #### [facility] [address] [place], [place], [address] BEDSIDE GLUCOSE Collected: 03/30/2018 Status: F Source: [place] 9:39 AM [facility] [place] TYPE CODE TESTS RESULT OUT OF RANGE REFERENCE UNITS LAB L501.080 70-110 mg/dL Normal BEDSIDE GLU 109 Result Comment: MANAGEMENT OF PATIENT CARE PER NURSING PROTOCOL Performed By: #### L501.080 #### [facility] Point of Care [address] [place], [place] [address] BEDSIDE GLUCOSE Collected: 03/30/2018 Status: F Source: [place] 6:56 AM [facility] [place] TYPE CODE TESTS RESULT OUT OF RANGE REFERENCE UNITS LAB L501.080 70-110 mg/dL Normal BEDSIDE GLU 101 Result Comment: MANAGEMENT OF PATIENT CARE PER NURSING PROTOCOL Performed By: #### L501.080 #### [facility] Point of Care [address] [place], [place] [address] CBC W/DIFF, AUTOMATED Collected: 03/30/2018 Status: F Source: [place] 5:35 AM [facility] [place] TYPE CODE TESTS RESULT OUT OF [...] Lymph 1.04 Performed By: #### L100.0100 #### [facility] [place], [address] BASIC METABOLIC Collected: 03/30/2018 Status: F Source: [place] PROFILE (BMP) 5:35 AM [facility] [place] TYPE CODE TESTS RESULT OUT OF [...] GAP 10 Performed By: #### L500.2500 #### [facility] [address] [place], [address] BEDSIDE GLUCOSE Collected: 03/30/2018 Status: F Source: [place] 4:55 AM [facility] [place] TYPE CODE TESTS RESULT OUT OF REFERENCE UNITS RANGE LAB L501.080 70-110 mg/dL High BEDSIDE GLU 115 Result Comment: MANAGEMENT OF PATIENT CARE PER NURSING PROTOCOL Performed By: #### L501.080 #### [facility] Point of Care [address] [place] [address] BEDSIDE GLUCOSE Collected: 03/30/2018 Status: F Source: [place] 3:22 AM [facility] [place] TYPE CODE TESTS RESULT OUT OF REFERENCE UNITS RANGE LAB L501.080 70-110 mg/dL High BEDSIDE GLU 117 Result Comment: MANAGEMENT OF PATIENT CARE PER NURSING PROTOCOL Performed By: #### L501.080 #### [facility] Point of Care [address] [place] [address] BEDSIDE GLUCOSE Collected: 03/30/2018 Status: F Source: [place] 12:52 AM [facility] [place] TYPE CODE TESTS RESULT OUT OF REFERENCE UNITS RANGE LAB L501.080 70-110 mg/dL High BEDSIDE GLU 112 Result Comment: MANAGEMENT OF PATIENT CARE PER NURSING PROTOCOL Performed By: #### L501.080 #### [facility] Point of Care [address] [place] [address] TROPONIN-I Collected: 03/29/2018 Status: F Source: [place] 9:48 AM [facility] [place] TYPE CODE TESTS RESULT OUT OF RANGE REFERENCE UNITS LAB L501.4010 <0.045 ng/mL Normal < 0.015 TROPONIN-I Result Comment: TROPONIN-I EXPECTED VALUES <0.045 Negative 0.045 - 0.590 Consistent with Cardiac Damage > OR = 0.600 Critical Value Not every elevated troponin is indicative of HI. These values should be used with clinical judgement in examining the patient's clinical picture for diagnosis. To establish a diagnosis of HI versus myocardial injury, there must be a demonstrated rise and/or fall in the troponin values, in addition to ischemic symptoms, EKG changes, new regional wall motion abnormality, and/or angiographical evidence. PLEASE NOTE: REFERENCE RANGES EDITED 17 Performed By: #### L501.4010 #### [facility] [address] [place], [address] CHEST 1 VIEW Observed: 03/29/2018 Status: F Source: [place] (PORTABLE) 9:40 AM [facility] [place] [facility] Imaging Services [address] [place] [address] Chest 1 View (Portable) MR#: [id number] Acct: [id number] Name: NAVEEN AKINS Rep #: [id number] : 1940 M 78 From: Bertrand Steel MD PCP: Jack Olmedo MD Status: ADM IN Study: Chest 1 View (Portable) Date of Exam: 03/29/18 Exam# [id number] Ordering Dr: Darrell Gomez MD STUDY: X-RAY [...] Bertrand Steel MD at 10:10 EDT Tel [phone], Service support , CC: Jack Olmedo MD; Darrell Gomez MD [employer]: Signed BEDSIDE GLUCOSE Collected: 03/29/2018 Status: F Source: [place] 9:35 AM [facility] [place] TYPE CODE TESTS RESULT OUT OF REFERENCE UNITS RANGE LAB L501.080 70-110 mg/dL High BEDSIDE GLU 122 Result Comment: MANAGEMENT OF PATIENT CARE PER NURSING PROTOCOL Performed By: #### L501.080 #### [facility] Point of Care [address] [place] [address] BEDSIDE GLUCOSE Collected: 03/29/2018 Status: F Source: [place] 6:54 AM [facility] [place] TYPE CODE TESTS RESULT OUT OF RANGE REFERENCE UNITS LAB L501.080 70-110 mg/dL Normal BEDSIDE GLU 106 Result Comment: MANAGEMENT OF PATIENT CARE PER NURSING PROTOCOL Performed By: #### L501.080 #### [facility] Point of Care [address] [place], [place] [address] CBC W/DIFF, AUTOMATED Collected: 03/29/2018 Status: F Source: [place] 5:20 AM [facility] [place] TYPE CODE TESTS RESULT OUT OF [...] Lymph 1.74 Performed By: #### L100.0100 #### [facility] [address] [place], [address] BASIC METABOLIC Collected: 03/29/2018 Status: F Source: [place] PROFILE (BMP) 5:20 AM [facility] [place] TYPE CODE TESTS RESULT OUT OF [...] 7 Performed By: #### L500.2500, L500.3400 #### [facility] [address] [facility] [place], [address] LIVER PROFILE Collected: 03/29/2018 Status: F Source: [place] 5:20 AM [facility] [place] TYPE CODE TESTS RESULT OUT OF [...] 0.36 Performed By: #### L500.2500, L500.3400 #### [facility] [address] [place], [address] HISTORY AND PHYSICAL Observed: 03/28/2018 Status: F Source: [place] EXAM 8:28 PM [facility] [place] [facility] Medical Records Department [address] [place] [address] History and Physical 03/28/182010 MR#: [id number] Acct: [id number] Name: NAVEEN AKINS Rep #: [id number] : 1940 78 From: Jh Gustafson MD PCP: Jack Olmedo MD Status: ADM IN Location: [facility] [id number] Problem List (1) Abdominal aortic [...] Complaint: Here for rehabilitation, strengthening, prior to oil heaterman care placement. The patient is a 78 year old Male with below past medical history presented to [facility] Emergency Department 01/11/2018 with syncope, left flank pain, diaphoresis, nausea. He was recently diagnosed with 6CM abdominal aortic aneurysm, had appointment with vascular surgery 01/12/2018. 01/11/2018 CT scan of abdomen/pelvis showed ruptured abdominal aortic aneurysm. Patient intubated, given succinyl choline, Ativan, Fentanyl. Transfused 4 units trauma blood. Patient [facility] to [facility]. 01/12/2018 Dr. Paniagua performed emergent AAA repair. Transferred to [facility] for recovery. Trach, PEG, condom catheter. Code Blue x 5, vasovagal thought secondary to Famotidine. EP recommended no intervention. Family told not to expect full recovery. HCAP treated with IV antibiotics. 03/28/2018 Admit to TCU with debility, here for rehabilitation, strengthening, prior to oil heaterman care placement. His spouse is medically ill [...] to TCU for rehabilitation, strengthening, prior to usp care placement. Resident's prognosis is poor. * [...] GLUCOSE METER Collected: 03/15/2018 Status: F Source: [facility] 4:34 PM HEALTH SYSTEM REPOSITORY TYPE CODE TESTS RESULT OUT OF REFERENCE UNITS RANGE LAB GLUBL(LOINC 70-99 mg/dL ) High Glucose Meter 116 Result Comment: RN NOTIFIED Performed By: #### GLMET #### [address] [place] [address] MDRD GFR Collected: 03/15/2018 Status: F Source: [facility] 3:10 AM HEALTH SYSTEM REPOSITORY TYPE CODE TESTS RESULT OUT OF RANGE REFERENCE UNITS LAB GFRFN(LOINC >60mL/min/1.73m ) 2 eGFR 48.60 Result Comment: If the patient is , multiply the result by 1.210. Performed By: #### GFR #### [facility] [address] [address] HEMOGRAM Collected: 03/15/2018 Status: F Source: [facility] 3:10 AM HEALTH SYSTEM REPOSITORY TYPE CODE [...] 9.8 Performed By: #### CBC1 #### [facility] [address] [id number] BASIC PANEL Collected: 03/15/2018 Status: F Source: [facility] 3:10 AM HEALTH SYSTEM REPOSITORY TYPE CODE [...] 10 Performed By: #### P8 #### [facility] [address] [place] [address] CONSULT PROG Observed: 03/14/2018 Status: COMPLETED Source: [place] 3:33 PM CLINIC OTHER CAMPUS REPOSITORY HNO ID: [id number] Author: Benigno Domingo Service: Gastroenterology Author Type: [...] CASE MANAGEM Observed: 03/14/2018 Status: COMPLETED Source: [place] 2:[address] [facility] OTHER CAMPUS REPOSITORY HNO ID: [id number] Author: Ariadna (Rn) MAGALY Hoang Service: Care Management Author Type: Registered Nurse Type: Care Mgt Progress Note Filed: 03/14/2018 2:54 PM Note Text: CARE MANAGEMENT PROGRESS NOTE SERVICE DATE: 03/14/2018 SERVICE TIME: 2:50 PM LOS: 5 days Met with joseluis Bolden and dtr at bedside. They are still deciding on return to [facility] Reviewed dc for tomorrow. Dr Whittaker notified. He requests ICU bed at [facility] Paramjit faustino. SIGNATURE: Ariadna Hoang RN PATIENT NAME: Naveen Akins DATE: March 14, 2018 TIME: 2:50 PM PAGER/CONTACT #: [phone] CONSULT PROG Observed: 03/14/2018 Status: COMPLETED Source: [place] 10:[address] [facility] OTHER CAMPUS REPOSITORY HNO ID: [id number] Author: Katerine Ibarra Service: Gastroenterology Author Type: [...] PAGER: PROGRESS Observed: 03/14/2018 Status: COMPLETED Source: [place] 9:[address] [facility] OTHER CAMPUS REPOSITORY HNO ID: [id number] Author: Chente Whittaker Service: Critical Care Author Type: Physician Type: Progress Notes Filed: 03/14/2018 12:35 PM Note Text: [facility] STAFF PHYSICIAN NOTE OF PERSONAL [...] PM HEMOGRAM Collected: 03/14/2018 Status: F Source: [facility] 3:10 AM HEALTH SYSTEM REPOSITORY TYPE CODE [...] MPV 9.5 Performed By: #### CBC1 #### [place] [address] BASIC PANEL Collected: 03/14/2018 Status: F Source: [facility] 3:10 HEALTH SYSTEM REPOSITORY TYPE CODE TESTS [...] Gap 10 Performed By: #### P8 #### [place] [address] PROGRESS Observed: 03/13/2018 Status: COMPLETED Source: [place] 4:47 PM CLINIC OTHER CAMPUS REPOSITORY HNO ID: [id number] Author: Hollie Monae Service: Electrophysiology Author Type: [...] HOURS 03/09/182038 -- SIGNATURE: Paige Monae, MSN, DECISION SUPPORT MANAGER.HUMAN RESOURCES TEAM MEMBER PATIENT NAME: Naveen Akins DATE: March 13, 2018 TIME: 4:48 PM PAGER/CONTACT #: [phone] CONSULT Observed: 03/13/2018 Status: COMPLETED Source: [place] 3:51 PM CLINIC OTHER CAMPUS REPOSITORY HNO ID: [id number] Author: Katerine Ibarra Service: Gastroenterology Author Type: Nurse Practitioner Type: Consults Filed: 03/13/2018 10:23 PM Note Text: CONSULT: GASTROENTEROLOGY SERVICE SERVICE DATE: 03/13/2018 SERVICE TIME: 3:51 PM REASON FOR CONSULT: ? TF aspiration from Peg tube REQUESTING PHYSICIAN: ICU PRIMARY CARE PHYSICIAN: Ji Hurst MD Subjective Mr. Akins is a 78 year old male with ruptured AAA s/p repair complicated by respiratory failure requiring trach and dysphagia requiring peg tube who presented to the ED s/p cardiac arrest from bradycardia. He was recently admitted for AAA repair requiring long admission stay. He was discharged on 02/10/18 to [facility] While at [facility] he went into cardiac arrest with multiple times of bagging for almost 40 seconds so he was transferred to [facility]. Once admitted he went into cardiac arrest for 3 minutes with ROSC maintain. GI was consulted for possible aspiration of tube feeding from Peg tube. His Peg tube was inserted in OR on 01/27/18. He have been getting TF and tolerating them since his surgery. His family stated they thought they noticed TF around his trach in [facility] They stated they believed his secretions smelled like vanilla. They also stated he had no residual when checked at [facility] FUNCTIONAL STATUS: Totally dependent PAST MEDICAL HISTORY Diagnosis Date - Acute on chronic respiratory failure ([facility]) 03/09/2018 - Anoxic encephalopathy ([facility]) 01/13/2018 post arrest 01/2018 - Aspiration into lower respiratory tract 03/10/2018 - Bradycardia 03/10/2018 severe bradycardia with asystole, probably vasovagal etiology - Coronary artery disease 1998 daughter states he had CAD by heart cath 1998 and had a stent placed in the maker artery - DIC (disseminated intravascular coagulation) ([facility]) 01/12/2018 - Gallstone pancreatitis 06/16/2009 - Hypokalemia 01/12/2018 - Hypomagnesemia 01/12/2018 - Hypophosphatemia 01/12/2018 - Ruptured abdominal aortic aneurysm (AAA) ([facility]) 01/12/2018 ruptured infrarenal AAA 01/12/2018, required emergent surgery; had an arrest enroute to [facility], resuscitated but had post-anoxic encephalopathy; postop course [...] 01/31/2018 - PICC LINE INSERTION (PICC TEAM) ([place]) 02/01/2018 - REPAIR UMBILICAL NATAN,5+Y/O,REDUC 05-28-09 - [...] summary on 02/11 - patient came from [facility] ) Disp: Rfl: carboxymethylcellulose sodium (REFRESH LIQUIGEL) [...] summary on 02/11 - patient came from [facility] ) Disp: Rfl: Chlorhexidine Gluconate (PERIDEX) 0.12 [...] summary on 02/11 - patient came from [facility] ) Disp: Rfl: metoclopramide HCl (REGLAN) 5 [...] summary on 02/11 - patient came from [facility] ) Disp: Rfl: pantoprazole (PROTONIX) 40 mg injection Inject 10 mL intravenously DAILY (6 AM). (Patient taking differently: Inject 40 mg intravenously DAILY (6 AM). Taking per discharge summary on 02/11 - patient came from [facility] ) Disp: Rfl: Current hospital medications: [START [...] PAGER: NUTRITION Observed: 03/13/2018 Status: COMPLETED Source: [place] 1:19 PM CLINIC OTHER CAMPUS REPOSITORY HNO ID: [id number] Author: Jaimie Perez RD Service: Nutrition Therapy Author Type: Registered Dietitian Type: Nutrition Filed: 03/14/2018 2:20 PM Note Text: NUTRITION THERAPY INITIAL ASSESSMENT SERVICE DATE: 03/13/2018 SERVICE TIME: 1045am RECOMMENDED MALNUTRITION DIAGNOSIS: UNABLE TO IDENTIFY MALNUTRITION AT THIS TIME NUTRITION CARE PLAN: Problem, Etiology and Signs/Symptoms: Alternate feeding route needed related to trach/dysphagia as evidenced by PEG placement for oil heaterman nutrition. Intervention: 1. Continue TF's via PEG since having BM's----->Nutren 2.0 @40ml/hr providing 1920kcals, 80gms pro 2. Adjust feeds per renal fxn 3. Reassess feeding route for usp with concerns of aspiration. Coordination of Care: [...] also severe ileus, who was sent from [facility] for severe bradycardia requiring CPR for almost [...] to Admission: Unsure if TF's interrupted at [facility] Was on TPN for some time 2/2 [...] 03/12/18699 - 03/13/1865803/13/18699 - 03/14/18 0659 Shift 6673-5711 5312-5159 4565-6519 24 Hour Total 3584-0084 5233-1307 7542-9914 24 Hour Total I N T A K E IV 524 732 430 9663 286 286 IVPB 150 150 NS .45% [...] 246 775 275 275 Shift Total 877 665 752 1288 701 701 O U T P U [...] CASE MANAGEM Observed: 03/13/2018 Status: COMPLETED Source: [place] 11:[address] [facility] OTHER CAMP[facility] REPOSITORY HNO ID: [id number] Author: Ariadna (Rn) MAGALY Haong Service: Care Management Author Type: Registered Nurse [...] 13, 2018 TIME: 11:39 AM PAGER/CONTACT #: [phone] CASE MGT INIT Observed: 03/13/2018 Status: COMPLETED Source: [facility] 10:[address] 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 No Advance Directive: FUNCTIONAL AND COGNITIVE/BEHAVIORAL PRIOR TO ADMISSION ASSESSMENT: Unable to complete assessment at this time due to pt on vent Has the Patient Been in a Nursing Home Facility in the Past 30 days? No SOCIAL: Living Arrangement: Previously at [facility] Lives With: N/A Patient From Facility Financial Resources: Retired Primary Contact: Extended Emergency Contact Information Primary Emergency Contact: Shelly Mckeon Address: [address] [place] [address] Relation: Spouse Supportive: Yes Other Important Patient [...] To Be Determined Pt son Manjit- from [place], assisted with assessment. Pt Shelly is decision maker. Pt had weaned off vent at [facility] per son. Family to decide if pt will return to [facility]. SIGNATURE: Ariadna Hoang RN PATIENT NAME: Naveen Akins DATE: March 13, 2018 TIME: 10:03 AM PAGER/CONTACT #: [phone] PROGRESS Observed: 03/13/2018 Status: COMPLETED Source: [place] 9:09 AM [facility] REPOSITORY O ID: [id number] Author: Chente Whittaker Service: Critical Care Author Type: Physician Type: Progress Notes Filed: 03/13/2018 2:39 PM Note Text: [facility] STAFF PHYSICIAN NOTE OF PERSONAL [...] note patient was 24hours trach collar at [facility] per family. Will continue TC trials [...] GI w/u first. - Awaiting return to [facility] for disposition This patient has a [...] MD PROGRESS Observed: 03/13/2018 Status: COMPLETED Source: [place] 7:33 AM [facility] REPOSITORY O ID: [id number] Author: Tristan Holguin MD Service: Critical Care [...] ileus, and respiratory failure who presented from [facility] after cardiac arrest. Occurred 5 times [...] March 13, 2018 TIME: 7:33 AM PAGER: [phone] HEMOGRAM Collected: 03/13/2018 Status: F Source: [facility] 2:40 AM HEALTH SYSTEM REPOSITORY TYPE CODE [...] MPV 9.2 Performed By: #### CBC1 #### [place] [address] BASIC PANEL Collected: 03/13/2018 Status: F [facility]: [facility] [place] 2:40 AM HEALTH SYSTEM REPOSITORY TYPE CODE [...] Gap 10 Performed By: #### P8 #### [place] [id number] PROGRESS Observed: 03/12/2018 Status: COMPLETED Source: [place] 7:27 AM CLINIC OTHER CAMPUS REPOSITORY HNO ID: [id number] Author: Lora Soliz Service: Critical Care Author Type: Physician Type: Progress Notes Filed: 03/12/2018 2:33 PM Note Text: MICU - PROGRESS NOTE SERVICE DATE: 03/12/2018 SERVICE TIME: 7:27 AM Admission Date: 03/09/2018 AGE: [id number] year old LOS: 3 days Subjective Case background: Naveen Akins is a 78 year-old male with a PMH of ruptured AAA, ileus, and respiratory failure who presented from [facility] after cardiac arrest. Occurred 5 times [...] March 12, 2018 TIME: 7:27 AM PAGER: [phone] [facility] STAFF PHYSICIAN NOTE OF PERSONAL [...] reviewed LTAC notes/ labs/ CT; CAD no HI; reported TF aspiration and vagal BM events [...] PM HEMOGRAM Collected: 03/12/2018 Status: F Source: [facility] [place] 3:40 AM HEALTH SYSTEM REPOSITORY TYPE CODE [...] MPV 9.5 Performed By: #### CBC1 #### [place] [address] BASIC PANEL Collected: 03/12/2018 Status: F Source: [facility] [place] 3:40 AM HEALTH SYSTEM REPOSITORY TYPE CODE [...] Gap 11 Performed By: #### P8 #### [place] [address] CONSULT Observed: 03/11/2018 Status: COMPLETED Source: [place] 5:21 PM CLINIC OTHER CAMPUS REPOSITORY HNO ID: [id number] Author: Simi Esqueda Service: Electrophysiology Author Type: Physician Type: Consults Filed: 03/11/2018 6:53 PM Note Text: CONSULT: [facility] Electrophysiology (EP) - [facility] ([facility]) SERVICE DATE: 03/11/2018 SERVICE TIME: 17:00 CONSULTING PHYSICIAN: Simi Esqueda MD PCP: iJ Hurst MD ATTENDING: Lora Soliz REASON FOR CONSULT: Arrhythmias and bradycardia, pauses, asystole Subjective CHIEF COMPLAINT: Bradycardia [R00.1] Anoxic brain injury (HCC) [G93.1] HISTORY OF PRESENT ILLNESS: Mr. Akins is a 78 year old male transferred from [facility] to the MICU due to recurrent episodes of severe bradycardia and asystole. He has a history of CAD with previous PCI/stent 1998 according to his daughter. She states he had maker blockage and received a stent, which was done at a [facility]. He experienced ruptured AAA in 01/2018 which required urgent transfer to [facility]. Enroute he arrested, the daughter states. He was resuscitated but developed severe post-anoxic encephalopathy. He underwent emergent AAA repair here at [facility] on 01/12/2018. Postoperative course was quite complicated, requiring multiple reoperations for the abdominal site and also developed acute renal failure requiring hemodialysis, respiratory failure requiring tracheostomy, and also required PEG tube. He was then discharged to [facility] in [place]. The daughter states that on 03/09 he had 5 episodes of severely slow heart rates and heart stopping which resulted in CPR and such by the [facility] team. She recorded the times of each one: 1) 5:00 AM, 2) 8:37 AM, 3) 12:05 PM, 4) 2:18 PM, and 5) 4:44 PM. The available notes from [facility] indicate he developed severe sinus bradycardia and [...] was not found to be having an HI or acute coronary syndrome. Dr. Rai of Cardiology has already evaluated him. PAST MEDICAL HISTORY Diagnosis Date - Acute on chronic respiratory failure (HCC) 03/09/2018 - Anoxic encephalopathy ([facility]) 01/13/2018 post arrest 01/2018 - Aspiration into lower respiratory tract 03/10/2018 - Bradycardia 03/10/2018 severe bradycardia with asystole, probably vasovagal etiology - Coronary artery disease 1998 daughter states he had CAD by heart cath 1998 and had a stent placed in the maker artery - DIC (disseminated intravascular coagulation) ([facility]) 01/12/2018 - Gallstone pancreatitis 06/16/2009 - Hypokalemia 01/12/2018 - Hypomagnesemia 01/12/2018 - Hypophosphatemia 01/12/2018 - Ruptured abdominal aortic aneurysm (AAA) ([facility]) 01/12/2018 ruptured infrarenal AAA 01/12/2018, required emergent surgery; had an arrest enroute to [facility], resuscitated but had post-anoxic encephalopathy; postop course [...] Most recent telemetry monitoring Outside chart from [facility] reviewed. Past 72 Hour Labs: Recent [...] primary heart rate/rhythm problem. The reports from [facility] of ventricular fibrillation I am inclined [...] per medical service(s) TERENCE (acute kidney injury) ([facility]) POA: Yes Assessment AND Plan: management per medical service(s) Acute on chronic respiratory failure (HCC) POA: Yes Assessment AND Plan: management per medical service(s) Aspiration into lower respiratory tract POA: Yes Assessment AND Plan: management per medical service(s) Bradycardia POA: Yes Assessment AND Plan: see above Sepsis ([facility]) POA: Yes Assessment AND Plan: management per medical service(s) Tracheostomy in place ([facility]) POA: Yes Assessment AND Plan: management per medical service(s) Vasovagal syncope POA: Yes Assessment AND Plan: see above Shock ([facility]) POA: Yes Assessment AND Plan: management per medical service(s) Asystole ([facility]) POA: Yes Assessment AND Plan: see above [...] concerns. The EP group pager is [phone]). Our service will follow at a distance, particularly over the weekend. SIGNATURE: Simi Esqueda MD PATIENT NAME: Naveen Akins DATE: March 11, 2018 TIME: 5:21 PM PAGER/CONTACT #: [phone] PROGRESS Observed: 03/11/2018 Status: COMPLETED Source: [place] 11:59 AM CLINIC OTHER CAMPUS REPOSITORY HNO ID: [id number] Author: Lora Soliz Service: Critical Care Author Type: Physician Type: Progress Notes Filed: 03/11/2018 12:03 PM Note Text: [facility] STAFF PHYSICIAN NOTE OF PERSONAL [...] reviewed LTAC notes/ labs/ CT; CAD no HI; ?drug ?aspiration and vagal BM events per [...] AM PROGRESS Observed: 03/11/2018 Status: COMPLETED Source: [place] 7:27 AM [facility] REPOSITORY [facility] ID: [id number] Author: Ben (Res) MD Angelo Service: Critical Care Author Type: Resident Type: Progress Notes Filed: 03/11/2018 12:32 PM Note Text: Attestation signed by Lora Soliz at 03/11/2018 12:39 PM See and Link to Dr Lora Soliz progress note/attestation today. Medical Intensive Care Progress Note March 11, 2018 Patient Name: Naveen Akins Patient Location: [id number][id number]* Admission Date: 03/09/2018 Length of Stay: 2 Primary Service: Medical Intensive Care Case background: Naveen Akins is a 78 year-old male with a PMH of ruptured AAA, ileus, and respiratory failure who presented from [facility] after cardiac arrest. Occurred 5 times [...] summary on 02/11 - patient came from [facility] ) carboxymethylcellulose sodium (REFRESH LIQUIGEL) 1 % dlgl Use 1-2 Drops in both eyes as needed (Dry Eyes). (Patient taking differently: Use 1-2 Drops in both eyes as needed (Dry Eyes). Taking per discharge summary on 02/11 - patient came from [facility] ) ipratropium-albuterol (DUONEB) 0.5 mg-3 mg(2.5 mg [...] summary on 02/11 - patient came from [facility] ) heparin 5,000 unit/mL injection Inject 1 mL subcutaneously every 12 hours. (Patient taking differently: Inject 5,000 Units subcutaneously every 12 hours. Taking per discharge summary on 02/11 - patient came from [facility] ) metoclopramide HCl (REGLAN) 5 mg/mL injection Inject 5 mg intravenously every 12 hours. (Patient taking differently: Inject 5 mg intravenously every 12 hours. Taking per discharge summary on 02/11 - patient came from [facility] ) senna leaf extract 176 mg/5 mL syrp 15 mL by OROGASTRIC route twice daily. (Patient taking differently: 15 mL by OROGASTRIC route twice daily. Taking per discharge summary on 02/11 - patient came from [facility] ) pantoprazole (PROTONIX) 40 mg injection Inject [...] 80-120 mEq ORAL/FEEDING TUBE PRN Fidencio (Res) Santaan potassium chloride iv piggyback 20 mEq in [...] colonizers Signed: Ben Stephens MD, PGY-1 Pager: [phone] Date: March 11, 2018 Time: 7:27 AM Recommendations are not finalized until co-signed by Staff physician. HEMOGRAM Collected: 03/11/2018 Status: F Source: [facility] [place] 4:10 AM HEALTH SYSTEM REPOSITORY TYPE CODE [...] MPV 9.5 Performed By: #### CBC1 #### [place] [address] BASIC PANEL Collected: 03/11/2018 Status: F Source: [facility] [place] 4:10 AM HEALTH SYSTEM REPOSITORY TYPE CODE [...] Gap 10 Performed By: #### P8 #### [address] [address] CONSULT Observed: 03/10/2018 Status: COMPLETED Source: [place] 2:20 PM CLINIC OTHER CAMPUS REPOSITORY HNO ID: [id number] Author: Rony Rai Service: Cardiovascular Disease Author Type: Physician Type: Consults Filed: 03/10/2018 2:38 PM Note Text: CARDIOLOGY CONSULT NOTE REASON FOR CONSULT: Syncope REQUESTING PHYSICIAN: Dr. Soliz CC: Ji Hurst MD HPI: Mr. Akins is a 78 year old male with history of repair of ruptured abdominal aneurysm complicated by wound disease and septicemia protein caloric malnutrition respiratory failure requiring tracheostomy. The patient was discharged to [facility] rehabilitation. He has been extubated and had his oh wound continued to be managed for secondary healing. The patient was brought to the hospital once again after he reportedly sustained repeated episodes of bradycardia pulseless activity necessitating CODE BLUE to be run on several occasions. I have reviewed the patient's and documentation from the chart and electronic chart at [facility]. There is no strips that I can [...] EK lead EKG shows normal sinus rhythm. TX and QT intervals are normal. There are [...] clinical course. Our cardiac advanced nurse practitioner (ANP/HUMAN RESOURCES TEAM MEMBER) will follow in the am. Please don't hesitate to contact me, or the slot floor person metal and plastic heater, if there are any questions regarding the care of the patient. Rony Rai MD, FACC [facility]. March 10, 2018 Pager: [phone] PROGRESS Observed: 03/10/2018 Status: COMPLETED Source: [place] 11:42 AM CLINIC OTHER CAMPUS REPOSITORY O ID: [id number] Author: Lora Soliz Service: Critical Care Author Type: Physician Type: Progress Notes Filed: 03/10/2018 11:51 AM Note Text: [facility] STAFF PHYSICIAN NOTE OF PERSONAL [...] Hypercapnea) ASS: 1. Symptomatic bradycardia, ?CAD no HI; ?drug ?aspiration and vagal BM events per [...] AM EKG (AK,AV,EU,FV,HL,CYNTHIA,MM,SP) Observed: Status: F Source: [place] 03/10/2018 9:19 AM CLINIC OTHER CAMPUS REPOSITORY NAME : NAVEEN AKINS PID : [id number] : 1940 Gender : Male Race : ORD : [id number] Procedure Date : Mar 10 2018 09:19 [...] ms QTC Calculation(Bezet) : 485 ms P [place] : 66 degrees R [place] : 22 degrees T [place] : 45 degrees Test Reason : Arrhythmia Location : 48 : [place] [address] Overread By : Simi Esqueda M.D. Editted By : Simi Esqueda M.D. Referred By : LORA SOLIZ Acquired by : Chantell GREENE HGB Collected: 03/10/2018 Status: F Source: [facility] [place] 8:00 AM HEALTH SYSTEM REPOSITORY TYPE CODE TESTS RESULT OUT OF RANGE REFERENCE UNITS LAB HGBI(LOINC) 13.7-17.5 g/dL Low Hgb 7.6 Performed By: #### HGBI #### [place] [address] PROGRESS Observed: 03/10/2018 Status: COMPLETED Source: [place] 7:[address] [facility] OTHER [place] REPOSITORY HNO ID: [id number] Author: Herman Sutton Service: Critical Care Author Type: Physician Type: Progress Notes Filed: 03/10/2018 8:03 AM Note Text: CODE BLUE NOTE PATIENT NAME: Naveen Akins Date of Code Event: 03/09/2018 Location: [facility] Time of Event: 2042 Witnessed Event?:yes Type [...] ALLIED HEALTH Observed: 03/10/2018 Status: COMPLETED Source: [place] 7:[address] [facility] OTHER [place] REPOSITORY HNO ID: [id number] Author: Nicky Russell (Chaplain), Student Service: Spiritual Care Author Type: Agency Owner Type: Allied Health Filed: 03/10/2018 7:57 AM Note Text: SPIRITUALCARE Spiritual Care Visit- Brief Note Name: Naveen Akins Date: March 10, 2018 Notes: Provided Spiritual Care for two family members in MICU waiting room -- offered prayer for their father who almost but he was brought back. Agency Owner Signature: Chaplain Yuri To contact the Spiritual Care Department: Please call [phone] or Page the On-Call Agency Owner at pager [phone] Thank you for the opportunity to be of service. This is an electronically created document. IF PRINTED, PLEASE DO NOT REMOVE FROM THE CHART OR MODIFY PRINTED COPY. PROGRESS Observed: 03/10/2018 Status: COMPLETED Source: [place] 6:[address] [facility] OTHER CAMPUS REPOSITORY HNO ID: [id number] Author: Tristan Holguin MD Service: Critical Care [...] ileus, and respiratory failure who presented from [facility] after cardiac arrest. Occurred 5 times [...] March 10, 2018 TIME: 6:38 AM PAGER: [phone] TYPE AND SCREEN Collected: 03/10/2018 Status: F Source: [facility] [place] 4:45 AM HEALTH SYSTEM REPOSITORY TYPE CODE TESTS RESULT OUT OF REFERENCE UNITS RANGE LAB ABO(LOINC) O ABO Group LAB SHIP CONSTRUCTION TEACHER(LOINC ) RH Type Positive LAB ABSCR(LOIN C) Antibody NEGATIVE Screen LAB BBCMT(LOIN C) Comment See Below Result Comment: Screen &/or Xmatch expires in 3 days at 12 midnight. Redraw patient at that time. Performed By: #### T&S #### [place] [address] RBC PRODUCTS Collected: 03/10/2018 Status: F Source: [facility] [place] 4:45 AM HEALTH SYSTEM REPOSITORY TYPE CODE TESTS RESULT OUT OF REFERENCE UNITS RANGE LAB UNIT1(LOINC ) Xmatch Unit 1 see below Result Comment: Compatible Performed By: #### RBCPS #### [place] [address] BASIC PANEL Collected: 03/10/2018 Status: F Source: [facility] [place] 3:30 AM HEALTH SYSTEM REPOSITORY TYPE CODE [...] Gap 10 Performed By: #### P8 #### [place] [address] HEMOGRAM Collected: 03/10/2018 Status: F Source: [facility] [place] 3:30 AM HEALTH SYSTEM REPOSITORY TYPE CODE [...] 9.6 Performed By: #### CBC1 #### [facility] [address] [place] [address] LACTIC ACID Collected: 03/10/2018 Status: F Source: [facility] [place] 12:30 AM HEALTH SYSTEM REPOSITORY TYPE CODE TESTS RESULT OUT OF REFERENCE UNITS RANGE LAB LAC(LOINC) 0.4-2.0 mEq/L Lactic Acid 0.8 Performed By: #### LAC #### [place] [address] HEMOGLOBIN A1C Collected: 03/10/2018 Status: F Source: [facility] [place] 12:30 AM [facility] SYSTEM REPOSITORY TYPE CODE TESTS RESULT OUT OF REFERENCE UNITS RANGE LAB LA1C2(LOINC 4.5-6.2 % ) Hgb A1c 5.1 LAB ESAV(LOINC) mg/dl Est. Avg. 100 Glucose Performed By: #### LA1C #### [place] [address] URINALYSIS ROUTINE Collected: 03/09/2018 Status: F Source: [facility] [place] 10:45 PM HEALTH SYSTEM REPOSITORY TYPE CODE [...] Urine NEGATIVE LAB SPG(LOINC) 1.005-1.030 Specific 1.016 Causey, Ur LAB PHUR(LOINC 5.0-8.0 ) pH,Urine 6.0 [...] Cast 3.9 Performed By: #### URIN2 #### [place] [address] BLOOD GAS ARTERIAL Collected: 03/09/2018 Status: F Source: [facility] [place] 10:[facility] REPOSITORY TYPE CODE TESTS [...] Excess -2.6 Performed By: #### ABG #### [place] [address] IONIZED CALCIUM Collected: 03/09/2018 Status: F Source: [facility] [place] 10:45 PM HEALTH SYSTEM REPOSITORY TYPE CODE TESTS RESULT OUT OF REFERENCE UNITS RANGE LAB CAION(LOINC 4.43-4.93 mg/dL ) High Ionized 5.14 Calcium LAB PHCAI(LOINC 7.320-7.420 ) pH High 7.446 LAB CAPH(LOINC) 4.36-4.73 mg/dL High Ionized 5.26 Ca,PH7.4 Performed By: #### IONCA #### [facility] [address] [place] [address] Observed: 03/09/2018 Status: F Source: [facility] BLOOD 10:45 PM HEALTH SYSTEM REPOSITORY Test performed at [facility] No growth Performed By: #### C_BLO #### [facility] [address] [place] [address] Observed: 03/09/2018 Status: F Source: [facility] [place] URINE 10:45 PM HEALTH SYSTEM REPOSITORY Test performed at [facility] ORGANISM: Enterobacter cloacae (ID: 1) >100,000 CFU/ml Performed By: #### C_URI #### [place] [address] CHEST 1 VIEW Observed: 03/09/2018 Status: F Source: D1G 10:10 PM HEALTH SYSTEM REPOSITORY Performed at [facility] APPROVED BY: TIM LEIJA MD EXAM: [...] 1 VIEW Observed: 03/09/2018 Status: F Source: [facility] 10:10 PM HEALTH SYSTEM REPOSITORY Performed at [facility] APPROVED BY: TIM LEIJA MD EXAM: [...] change. PROCEDURE Observed: 03/09/2018 Status: COMPLETED Source: [place] 9:57 PM CLINIC OTHER CAMPUS REPOSITORY HNO ID: [id number] Author: Goldie Duenas Service: Critical Care Author [...] Inserted By: Resident Supervision: Dr Sutton [facility] Insertion checklist, attached to the [...] 2804 PROGRESS Observed: 03/09/2018 Status: COMPLETED Source: [place] 9:30 PM CLINIC OTHER CAMPUS REPOSITORY HNO ID: [id number] Author: Herman Sutton Service: Critical Care Author Type: Physician Type: Progress Notes Filed: 03/10/2018 7:58 AM Note Text: Please link this note to the resident note written on 06/10/17 [facility] STAFF PHYSICIAN NOTE OF PERSONAL [...] also severe ileus, who was sent from [facility] for severe bradycardia requiring CPR for almost [...] of care, medical plan for the day, consultant education recommendations, medical disposition and current medical condition/prognosis [...] OF CARE Observed: 03/09/2018 Status: COMPLETED Source: [place] 9:02 PM CLINIC OTHER CAMPUS REPOSITORY HNO ID: [id number] Author: Berta Duenas (Pharmacist) Service: (none) Author Type: Pharmacist Type: Plan of Care Filed: 03/09/2018 9:05 PM Note Text: MEDICATION HISTORY AND MEDICATION RECONCILIATION Patient Name:Tom Akins : 1940 Source of history:care home/Other MAR - Discharge Summary on 02/11 Medication Nonadherence Identified: No barriers noted - Patient came from [facility] The above information represents the best possible medication history: Yes Reconciliation completed? Yes All RECRUITING ASSOCIATE medications addressed by LIP Additional comments: N/A Allergies: ALLERGIES No Known Allergies Preferred Pharmacy: [facility] ([phone]), however, patient was admitted from [facility] Current RECRUITING ASSOCIATE Medications: Prior to Admission medications as of [...] PM HEMOGRAM Collected: 03/09/2018 Status: F Source: [facility] [place] 8:55 HEALTH SYSTEM REPOSITORY TYPE CODE TESTS [...] 10.0 Performed By: #### CBC1 #### [facility] [address] [place] [address] LACTIC ACID Collected: 03/09/2018 Status: F Source: [facility] [place] 8:55 PM HEALTH SYSTEM REPOSITORY TYPE CODE TESTS RESULT OUT OF REFERENCE UNITS RANGE LAB LAC(LOINC) 0.4-2.0 mEq/L High alert Lactic Acid 5.2 Performed By: #### LAC #### [facility] [address] [place] [address] COMPREHENSIVE PANEL Collected: 03/09/2018 Status: F Source: [facility] [place] 8:55 HEALTH SYSTEM REPOSITORY TYPE CODE TESTS [...] 13 Performed By: #### P14 #### [facility] [address] [place] [address] PHOSPHORUS BLOOD Collected: 03/09/2018 Status: F Source: [facility] 8:55 PM HEALTH SYSTEM REPOSITORY TYPE CODE TESTS RESULT OUT OF REFERENCE UNITS RANGE LAB PHOS(LOINC 2.5-4.9 mg/dL ) Phosphorus Blood 4.8 Performed By: #### PHOS #### [facility] [address] [place] [address] MAGNESIUM BLOOD Collected: 03/09/2018 Status: F Source: [facility] [place] 8:55 PM HEALTH SYSTEM REPOSITORY TYPE CODE TESTS RESULT OUT OF REFERENCE UNITS RANGE LAB MAG(LOINC) 1.6-2.6 mg/dL Magnesium Blood 2.4 Result Comment: SPECIMEN SLIGHTLY HEMOLYZED Performed By: #### MAG #### [place] [address] TROPONIN I Collected: 03/09/2018 Status: F Source: [facility] [place] 8:55 PM HEALTH SYSTEM REPOSITORY TYPE CODE TESTS RESULT OUT OF REFERENCE UNITS RANGE LAB TROP(LOINC) 0.015-0.045 ng/ml Troponin I 0.020 Performed By: #### TROP #### [place] [address] Observed: 03/09/2018 Status: F Source: [facility] MRSA SCREEN 8:55 PM HEALTH SYSTEM REPOSITORY Test performed at [facility] No MRSA detected. Performed By: #### MRSA #### [place] [address] NURSING PROG Observed: 03/09/2018 Status: COMPLETED Source: [facility] 8:00 PM CLINIC OTHER CAMPUS REPOSITORY HNO ID: [id number] Author: Indira (Rn) MAGALY Conrad Service: (none) Author Type: Registered Nurse Type: Nursing Progress Note Filed: 03/10/2018 2:23 AM Note Text: Nursing Progress Note Patient Name: Naveen Akins Patient Location: [place] [address]* Daily Note: 2039 Patient was noticed to [...] Conrad RN Observed: 03/09/2018 Status: C Source: [facility] 8:00 AM HEALTH SYSTEM RESPIRATORY REPOSITORY Test performed at [facility] Few normal oropharyngeal john NOTE CORRECTED REPORT BELOW PREVIOUSLY REPORTED ACINETOBACTER ON 03-13-18 HAS BEEN CORRECTED TO NON-WHIP SAWYER SPECIES. Many Gram positive bacilli, diphtheroids Moderate Gram negative bacilli Rare Gram positive cocci Moderate Polymorphonuclear leukocytes Few Squamous epithelial cells ORGANISM: Nonfermenter species (ID: 2) Moderate Strain 1 ORGANISM: Nonfermenter species (ID: 1) Moderate Strain 2 Performed By: #### C_RES #### [facility] [address] [place] [address] NURSING PROG Observed: 02/10/2018 Status: COMPLETED Source: [place] 12:15 AM [facility] REPOSITORY HNO ID: [id number] Author: Kosta Kunz RN Service: Nursing Author Type: Registered Nurse Type: Nursing Progress Note Filed: 02/10/2018 12:30 AM Note Text: Nursing Progress Note Patient Name: Naveen Akins Patient Location: [place] [address] [address]* Daily Note: Pt transported to [facility] via [facility]. Report given to [facility]. This note was completed by: Kosta Kunz RN CNDS Observed: 02/10/2018 Status: COMPLETED Source: [place] 12:15 AM [facility] REPOSITORY HNO ID: [id number] Author: Paulo Lovelace (Cns) Service: Critical Care [...] CONDITION AT DISCHARGE: stable hemodynamics DISCHARGE DISPOSITION: [facility] Acute Care Facility INFORMATION PROVIDED TO PATIENT: [...] Dx: 1. AAA (abdominal aortic aneurysm, ruptured) ([facility]) carboxymethylcellulose sodium (REFRESH LIQUIGEL) 1 % dlgl [...] management of this patient. SIGNATURE: Paulo Lovelace APRN.[facility] PAGER/CONTACT #: [phone] DATE: 2018 TIME: 9:31 AM NURSING PROG Observed: 02/09/2018 Status: COMPLETED Source: [place] 8:10 PM [facility] REPOSITORY HNO ID: [id number] Author: Ariadna TylerRn) MAGALY Nolan Service: Nursing Author Type: Registered Nurse Type: Nursing Progress Note Filed: 02/09/2018 8:11 PM Note Text: [facility] to [facility] CASE MANAGEM Observed: 02/09/2018 Status: COMPLETED Source: [place] 7:[address] [facility] OTHER [place] REPOSITORY HNO ID: [id number] Author: Dolly TylerRn) MAGALY Santillan Service: Care [...] the discharge. Family has phone number for [employer]. Transport arranged for 10pm and orders sent via [employer]. SIGNATURE: Dolly Santillan RN PATIENT NAME: Naveen Akins DATE: February 09, 2018 TIME: 7:26 PM PAGER/CONTACT #: [phone] GLUCOSE METER Collected: 02/09/2018 Status: F Source: [facility] 5:56 PM HEALTH SYSTEM REPOSITORY TYPE CODE TESTS RESULT OUT OF REFERENCE UNITS RANGE LAB GLUBL(LOINC 70-99 mg/dL ) High Glucose Meter 146 Result Comment: RN NOTIFIED Performed By: #### GLMET #### [place] [address] CASE MANAGEM Observed: 02/09/2018 Status: COMPLETED Source: [place] 3:[address] [facility] OTHER [place] REPOSITORY HNO ID: [id number] Author: Lupe TylerRn) MAGALY Cheng Service: Care [...] still undecided on [facility]. Paulo Lovelace APRN.MODEL BUILDER notified. Paulo Lovelace APRN.MODEL BUILDER states patient to be discharged today. IM letter given to patient's spouse Preeti. veterinary assistant manager Julia Toussaint notified. Will continue to follow for DC planning needs. SIGNATURE: Lupe Cheng RN PATIENT NAME: Naveen Akins DATE: February 09, 2018 TIME: 3:45 PM PAGER/CONTACT #: [phone] PROGRESS Observed: 02/09/2018 Status: COMPLETED Source: [facility] 3:23 PM CLINIC OTHER CAMPUS REPOSITORY O ID: [id number] Author: Shyam Degroot Service: Pulmonary Disease Author [...] CA 7.4* MG 2.4 ABG: Invalid input(s): [id number] Assessment/Plan IMPRESSION: Critical Care Documentation: The patient [...] Akins PROGRESS Observed: 02/09/2018 Status: COMPLETED Source: [facility] 2:34 PM CLINIC OTHER CAMPUS REPOSITORY [facility] ID: [id number] Author: Shen Lorenzo Service: Nephrology Author Type: Physician Type: Progress Notes Filed: 02/09/2018 2:46 PM Note Text: Nephrology Progress Note Following for TERENCE. Pt is on ventilator (trached). Cannot do ROS. Does not follow command. Current Inpatient Medications: Current Facility-Administered Medications Ordered in [facility]: Parenteral Nutrition - Adult INTRAVENOUS ONCE TPN [...] 1 Drop BOTH EYES QID PRN Paulo (Assembler For Puller Over Hand) [place] 1 Drop at 01/26/18 1724 heparin [...] do not hesitate to contact me at [phone] if there is any question or concern. Rosanna Talbert MD (Shen Lorenzo) PLAN OF CARE Observed: 02/09/2018 Status: COMPLETED Source: [facility] 2:33 PM CLINIC OTHER CAMPUS REPOSITORY O ID: [id number] Author: Dorie Schofield (Pharmacist) Service: Pharmacy Author [...] PHARMACIST February 09, 2018 2:33 PM Pager: [phone] 02/09/2018 2:33 PM Medication List ASK your [...] OF CARE Observed: 02/09/2018 Status: COMPLETED Source: [facility] 2:30 PM [facility] REPOSITORY HNO ID: [id number] Author: Gilbert Jeronimo Service: Vascular Surgery Author [...] SOCIAL WORK Observed: 02/09/2018 Status: COMPLETED Source: [facility] 1:49 PM [facility] REPOSITORY HNO ID: [id number] Author: Destiney Orozco (Sw) Service: Social Work Author Type: Transportation Solutions Manager Type: Social Work Filed: 02/09/2018 2:05 PM Note Text: SOCIAL WORK PROGRESS NOTE SERVICE DATE: 02/09/2018 SERVICE TIME: 1:49 PM LOS: 28 days Disposition Issue Referred by CM re: assist with family who have been hesitant in cooperating for pt to go to next level of care - . LTAC. Discussed with MODEL BUILDER who confirms pt is medically ready for d/c. Met with pt's , Shelly and Ariadna plasencia. Family expressed concern that pt not leave [facility] until medically ready. Dr. Degroot to talk with family and assure them his medical group follows pts at [facility] Daughter, Ariadna states she and her sister toured [facility] and a concern is that there is not accommodations for family. (pt's has slept in waiting room since pt admitted). Discussed with family not in pt's best to remain in hospital longer than necessary. Select Paramjit cárdenas here and to meet with family. Bed is available at [facility] There is a recliner can sleep on in pt's room. Time Spent (minutes): 30 SIGNATURE: ANDREA Hill PATIENT NAME: Naveen Akins DATE: February 09, 2018 TIME: 1:49 PM PAGER/CONTACT #: [phone] NUTRITION Observed: 02/09/2018 Status: COMPLETED Source: [facility] 11:54 AM CLINIC OTHER CAMPUS REPOSITORY HNO ID: [id number] Author: Viry Mosher RD Service: NST-Nutrition Support [...] Addem: Notified that patient is transfering to [facility] today, TPN Orders are On the paper chart, and will send unspiked TPN bag after 6 pm to [facility] with the patient Nutritional Status: MODERATE PROTEIN-CALORIE [...] 0330 PREALB 16.9* Viry Mosher, RD, LD, [facility] Pager: [phone] Increments: 3 PROGRESS Observed: 02/09/2018 Status: COMPLETED Source: [facility] 11:45 AM CLINIC OTHER CAMPUS REPOSITORY HNO ID: [id number] Author: Dorcas Mcdonnell III Service: Infectious Disease [...] 09, 2018 TIME: 2:17 PM PAGER/CONTACT #: [phone] PROGRESS Observed: 02/09/2018 Status: COMPLETED Source: [facility] 11:18 AM CLINIC OTHER CAMPUS REPOSITORY O ID: [id number] Author: Gilbert Jeronimo Service: Vascular Surgery Author [...] identified. I discussed this case with the fine arts model on today and he concurs that there is no reason why the patient should not be transferred to the LTAC/[facility]. Patient's family did visit this and they stated may be they wanted to visit another LTAC or 2 but I remind him that one of the things that they're concerned about him leaving here is lack of continuity of care and that at [facility] he will be able to get the same fine arts model the same automatic profile shaper operator the same infectious disease doctors that he [...] off dialysis and I discuss with this automatic profile shaper operator and they are comfortable in leaving him [...] questions or concerns Mon-Fri 6a-5p please page [phone]. After 5pm and on Weekends and Holidays, please page [phone] if in ICU or [phone] if on [...] 0659 02/09/18 07 - 02/10/18 0659 Shift 6644-9140 5854-8427 4210-9568 24 Hour Total 4497-8297 5650-1216 6069-2626 24 Hour Total I N T A K E IV 200 30 70 300 NS 0.9% 30 70 100 Cipro IV 200 200 Blood Products 301 301 PRBC Intake (mL) 300 300 Packed Red Blood Cells Number of Units 1 1 TPN/PPN 118 856 3806 TPN 874 406 0673 Irrigants 30 30 Irrigant/Flush Amount In (GI Feed/Drain 01/27/18 Assessment Gastrostomy) 30 30 Shift Total 501 813 310 3220 O U T P U T Urine 660 663 198 5426 Tube Output ( Condom Catheter 02/08/18 1800) 660 092 925 6768 Drains 0 0 Negative Pressure: Output (mL) (Negative Pressure Wound Therapy 01/12/18 0749 Abdomen) 0 0 Tubes 500 25 525 Drain/Tube Output (Drain/Tube 01/19/18 1015 Midline Abdomen) 25 25 Drain/Tube Output (Drain/Tube 02/02/18 0300 Fecal Management System Rectum) 500 500 # of BMs Stool Incontinence 1 x 1 x Shift Total 660 450 401 2517 Weight (kg) 84.8 84.8 84.8 84.8 84.8 [...] Noted - Ruptured abdominal aortic aneurysm (AAA) ([facility]) 01/12/2018 - TERENCE (acute kidney injury) (HCC) [...] Note: Added automatically from request for surgery [id number] 77 year old male with Ruptured AAA [...] February 09, 2018 TIME: 11:23 AM Pager: [phone] FECAL OCCULT BLOOD Collected: 02/09/2018 Status: F Source: [facility] 9:50 AM HEALTH SYSTEM REPOSITORY TYPE CODE TESTS RESULT OUT OF REFERENCE UNITS RANGE LAB OCCU2(LOINC NEGATIVE ) Fecal NEGATIVE Occult Blood Performed By: #### OCCU2 #### [place] [address] CASE MANAGEM Observed: 02/09/2018 Status: COMPLETED Source: [facility] 9:42 AM CLINIC OTHER CAMPUS REPOSITORY HNO ID: [id number] Author: Lupe (Rn) MAGALY Cheng Service: Care [...] leaning towards [facility] but will have their final decision by this afternoon. pressroom worker Jenna Orozco and Paulo Lovelace APRN.MODEL BUILDER updated. Will continue to follow clinical course for further DC planning needs. SIGNATURE: Lupe Cheng RN PATIENT NAME: Naveen Akins DATE: February 09, 2018 TIME: 9:42 AM PAGER/CONTACT #: [phone] IONIZED CALCIUM Collected: 02/09/2018 Status: F Source: [facility] 3:37 AM HEALTH SYSTEM REPOSITORY TYPE CODE TESTS RESULT OUT OF REFERENCE UNITS RANGE LAB CAION(LOINC 4.43-4.93 mg/dL ) Ionized 4.47 Calcium LAB PHCAI(LOINC 7.320-7.420 ) pH 7.349 LAB CAPH(LOINC) 4.36-4.73 mg/dL Ionized 4.36 Ca,PH7.4 Performed By: #### IONCA #### [place] [address] MDRD GFR Collected: 02/09/2018 Status: F Source: [facility] 3:30 AM HEALTH SYSTEM REPOSITORY TYPE CODE TESTS RESULT OUT OF RANGE REFERENCE UNITS LAB GFRFN(LOINC >60mL/min/1.73m ) 2 eGFR 15.12 Result Comment: If the patient is , multiply the result by 1.210. Performed By: #### GFR #### [place] [address] MAGNESIUM BLOOD Collected: 02/09/2018 Status: F Source: [facility] 3:30 AM HEALTH SYSTEM REPOSITORY TYPE CODE TESTS RESULT OUT OF REFERENCE UNITS RANGE LAB MAG(LOINC) 1.6-2.6 mg/dL Magnesium Blood 2.4 Performed By: #### MAG #### [place] [address] PHOSPHORUS BLOOD Collected: 02/09/2018 Status: F Source: [facility] 3:30 AM HEALTH SYSTEM REPOSITORY TYPE CODE TESTS RESULT OUT OF REFERENCE UNITS RANGE LAB PHOS(LOINC 2.5-4.9 mg/dL ) Phosphorus Blood 3.9 Performed By: #### PHOS #### [facility] [address] [place] [id number] HEMOGRAM/DIFF Collected: 02/09/2018 Status: F Source: [facility] 3:30 AM HEALTH SYSTEM REPOSITORY TYPE CODE [...] 1.38 LAB MONON(LOIN 0.30-0.82 thou/cmm C) Abs. Luna 0.31 LAB EOSN(LOINC 0.04-0.54 thou/cmm ) Abs. Eosin 0.29 LAB BASON(LOIN 0.01-0.08 thou/cmm C) Abs. Baso 0.01 Performed By: #### CBCD1 #### [facility] [address] [place] [address] PREALBUMIN Collected: 02/09/2018 Status: F Source: [facility] 3:30 AM HEALTH SYSTEM REPOSITORY TYPE CODE TESTS RESULT OUT OF REFERENCE UNITS RANGE LAB PAB(LOINC) 20.0-40.0 mg/dL Low Prealbumin 16.9 Performed By: #### PAB #### [facility] [address] [place] [address] BASIC PANEL Collected: 02/09/2018 Status: F Source: [facility] 3:30 AM HEALTH SYSTEM REPOSITORY TYPE CODE [...] Gap 15 Performed By: #### P8 #### [place] [address] PROGRESS Observed: 02/08/2018 Status: COMPLETED Source: [facility] 12:21 PM CLINIC OTHER CAMPUS REPOSITORY HNO ID: [id number] Author: Dorcas Mcdonnell III Service: Infectious Disease [...] 0.84 - 2.85 thou/cmm 1.32 1.08 Abs. Luna 0.30 - 0.82 thou/cmm 0.29 (L) 0.27 [...] February 08, 2018 TIME: 12:21 PM PAGER: [phone] ABDOMEN 1 VIEW Observed: 02/08/2018 Status: F Source: [facility] 11:39 AM HEALTH SYSTEM REPOSITORY Performed at [facility] APPROVED BY: Matt Geiger MD EXAM [...] 1 VIEW Observed: 02/08/2018 Status: F Source: [facility] 11:31 AM HEALTH SYSTEM REPOSITORY Performed at [facility] APPROVED BY: Matt Geiger MD EXAM TITLE: CHEST 1 VIEW DATE: 02/08/2018 09:45 INDICATION: Nausea and vomiting. Tracheostomy. COMPARISON: 02/06/2018 at 04 53. Portable frontal view of the chest shows tracheostomy tube with tip at the level of T3. Overlying cardiac nurse leads. Left-sided PICC line with tip near the cavoatrial junction. Heart size is normal. Thoracic aorta is tortuous. Lungs are clear. No infiltrates or effusions. Intramedullary jerry within the left proximal humerus. Gastrostomy tube in the left upper quadrant. IMPRESSION: No acute findings radiographically. PROGRESS Observed: 02/08/2018 Status: COMPLETED Source: [facility] 11:26 AM CLINIC OTHER CAMPUS REPOSITORY HNO ID: [id number] Author: Shen Lorenzo Service: Nephrology Author Type: [...] 1 Drop BOTH EYES QID PRN Paulo (Assembler For Puller Over Hand) [place] 1 Drop at 01/26/18 1724 heparin [...] do not hesitate to contact me at [phone] if there is any question or concern. Rosanna Talbert MD (Shen Lorenzo) NURSING PROG Observed: 02/08/2018 Status: COMPLETED Source: [facility] 11:21 AM CLINIC OTHER CAMPUS REPOSITORY O ID: [id number] Author: Janell (Rn) MAGALY Fabian Service: Nursing Author Type: Registered Nurse Type: Nursing Progress Note Filed: 02/08/2018 11:25 AM Note Text: Nursing Progress Note Patient Name: Naveen Akins Patient Location: [id number]/[facility]-323* Daily Note:914: Notified Demi Cee [...] RN PROGRESS Observed: 02/08/2018 Status: COMPLETED Source: [facility] 11:[address] [facility] OTHER CAMPUS REPOSITORY HNO ID: [id number] Author: Gilbert (Luther Jeronimo Service: Vascular Surgery [...] questions or concerns Mon-Fri 6a-5p please page [phone]. After 5pm and on Weekends and Holidays, please page [phone] if in ICU or [phone] if on RNF. SERVICE DATE: 02/08/2018 Subjective [...] 0659 02/08/18 07 - 02/09/18 0659 Shift 3225-0671 5774-0784 6644-6923 24 Hour Total 4832-1105 8699-2605 8525-9440 24 Hour Total I N T A K E IV 200 200 Cipro IV 200 200 TPN/PPN 969 856 7411 TPN 242 092 8838 Irrigants 120 180 300 Irrigant/Flush Amount In (GI Feed/Drain 01/27/18 Assessment Gastrostomy) 120 180 300 Gastric Tube 280 345 625 Tube Feed Intake (I/O) (GI Feed/Drain 01/27/18 Assessment Gastrostomy) 280 345 625 Shift Total 1350 1270 2620 O U T P U T Urine 500 002 645 8471 280 280 Tube Output ( Condom Catheter 02/02/18 2200) 500 841 371 9418 280 280 Tubes 350 400 750 Drain/Tube Output (Drain/Tube 01/19/18 1015 Midline Abdomen) 0 0 0 Drain/Tube Output (Drain/Tube 02/02/18 0300 Fecal Management System Rectum) 350 400 750 Shift Total 850 147 872 5630 280 280 Weight (kg) 87.5 87.5 87.5 [...] Noted - Ruptured abdominal aortic aneurysm (AAA) ([facility]) 01/12/2018 - TERENCE (acute kidney injury) ([facility]) 01/30/2018 - Ileus ([facility]) 01/30/2018 - Acute liver failure without hepatic coma 01/30/2018 - Obesity, Class I, BMI 30-34.9 01/16/2018 - Anoxic encephalopathy ([facility]) 01/13/2018 - DIC (disseminated intravascular coagulation) ([facility]) 01/12/2018 - Acute respiratory failure ([facility]) 01/12/2018 - Cardiac arrest ([facility]) 01/12/2018 - AAA (abdominal aortic aneurysm, ruptured) ([facility]) 01/12/2018 Overview Note: Added automatically from request for surgery [id number] 77 year old male with Ruptured AAA [...] February 08, 2018 TIME: 11:09 AM Pager: [phone] VENOUS BLOOD GAS Collected: 02/08/2018 Status: F Source: [facility] 10:45 AM HEALTH SYSTEM REPOSITORY TYPE CODE [...] Venous 85.4 Performed By: #### VBG #### [place] [address] LACTIC ACID Collected: 02/08/2018 Status: F Source: [facility] 10:45 HEALTH SYSTEM REPOSITORY TYPE CODE TESTS RESULT OUT OF REFERENCE UNITS RANGE LAB LAC(LOINC) 0.4-2.0 mEq/L Lactic Acid 1.4 Performed By: #### LAC #### [place] [address] PROGRESS Observed: 02/08/2018 Status: COMPLETED Source: [facility] 9:53 AM CLINIC OTHER CAMPUS REPOSITORY O ID: [id number] Author: Shyam Degroot Service: Pulmonary Disease Author [...] this interval not displayed. ABG: Invalid input(s): [id number] Assessment/Plan IMPRESSION: Critical Care Documentation: The patient [...] IONIZED CALCIUM Collected: 02/08/2018 Status: F Source: [facility] 6:45 AM HEALTH SYSTEM REPOSITORY TYPE CODE TESTS RESULT OUT OF REFERENCE UNITS RANGE LAB CAION(LOINC 4.43-4.93 mg/dL ) Low Ionized 4.28 Calcium LAB PHCAI(LOINC 7.320-7.420 ) pH 7.353 LAB CAPH(LOINC) 4.36-4.73 mg/dL Low Ionized 4.18 Ca,PH7.4 Performed By: #### IONCA #### [place] [address] BASIC PANEL Collected: 02/08/2018 Status: F Source: [facility] 6:45 AM HEALTH SYSTEM REPOSITORY TYPE CODE [...] 17 Performed By: #### P8 #### [facility] [address] [place] [address] HEMOGRAM/DIFF Collected: 02/08/2018 Status: F Source: [facility] 6:45 AM HEALTH SYSTEM REPOSITORY TYPE CODE [...] LAB MONON(LOIN 0.30-0.82 thou/cmm C) Low Abs. Luna 0.27 LAB EOSN(LOINC 0.04-0.54 thou/cmm ) Abs. Eosin 0.30 LAB BASON(LOIN 0.01-0.08 thou/cmm C) Abs. Baso 0.01 Result Comment: Smear scanned; tech agrees with automated differential Performed By: #### CBCD1 #### [facility] [address] [place] [address] ALLIED HEALTH Observed: 02/08/2018 Status: COMPLETED Source: [facility] 1:[address] [facility] OTHER [place] REPOSITORY HNO ID: [id number] Author: Chaplain Robbins (Chaplain) Service: Spiritual Care Author Type: Agency Owner Type: Allied Health Filed: 02/08/2018 10:49 AM Note Text: SPIRITUALCARE Spiritual Care Visit- Brief Note Name: Naveen Akins Date: February 08, 2018 Notes: Family in denial. Waiting for a miracle. Agency Owner Signature: Chaplain Rosendo To contact the Spiritual Care Department: Please call [phone] or Page the On-Call Agency Owner at pager [phone] Thank you for the opportunity to be of service. This is an electronically created document. IF PRINTED, PLEASE DO NOT REMOVE FROM THE CHART OR MODIFY PRINTED COPY. PROCEDURE Observed: 02/08/2018 Status: COMPLETED Source: [facility] 12:[address] [facility] OTHER CAMPUS REPOSITORY HNO ID: [id number] Author: Dionicio Stevens Service: Vascular Surgery Author Type: Resident Type: Procedures Filed: 02/08/2018 12:54 AM Note Text: Attestation signed by Araceli Reynaga at 02/08/2018 9:16 AM Araceli Reynaga MD BEDSIDE PROCEDURE NOTE PROCEDURE DATE: February 08, 2018 PROCEDURE START TIME: 00:20 PRIMARY PROCEDURALIST: Dionicio Stevens MD CONSTRUCTION CONTROLLER(S): Patient's Nurse and RT at bedside assisting [...] [id number] PROGRESS Observed: 02/07/2018 Status: COMPLETED Source: [facility] 4:39 PM CLINIC OTHER CAMPUS REPOSITORY [facility] ID: [id number] Author: Paulo Lovelace (Cns) Service: Critical Care [...] this interval not displayed. ABG: Invalid input(s): [id number] Assessment/Plan IMPRESSION: Critical Care Documentation: The patient has the following organ/system impairment(s): Respiratory failure (with Hypoxemia) 1.Acute hypoxic respiratory failure/ARDS/Bilat pleuaral effusions-remains intubated on 40% FIO2-periodic Seth Smith respirations 2. Ruptured AAA ?Sp repair-Wound closed vac in place 3.SP cardiac arrest 4.Shock-Levophed support is off 5. Pt is nonresponsive-even to noxious stimuli-Encephalopathy 6.Thrombocytopenia improving-platelet 286,000 7.Nutritional bszsxad-HDS-kixr feedings increased to 30 ml/hr 8.Sinus tachycardia-SVT resolved-frequent PACs this AM 9.TERENCE on KZY-tgnfleiyo-gqjbmmrar urine now 10. Fentanyl drip is off [...] 40 minutes excluding procedures. SIGNATURE: Paulo Lovelace APRN.MODEL BUILDER PATIENT NAME: Naveen Akins DATE: February 07, 2018 TIME: 4:39 PM ALLIED HEALTH Observed: 02/07/2018 Status: COMPLETED Source: [facility] 3:45 PM CLINIC OTHER CAMPUS REPOSITORY HNO ID: [id number] Author: Chaplain Serna (Chaplain) Service: Spiritual Care Author Type: Agency Owner Type: Allied Health Filed: 02/07/2018 4:23 PM Note Text: SPIRITUALCARE Spiritual Care Visit- Brief Note Name: Naveen Akins Date: February 07, 2018 Notes: Follow-up visit w/fam in 3d fl WR--they continue to hold on to hope. A little later, silent prayer outside pt's rm (pat pulled--he appeared to be busy w/staff) Will continue to follow as needed. Agency Owner Signature: Chaplain Daphne To contact the [facility] Care Department: Please call [phone] or Page the On-Call Agency Owner at pager [phone] Thank you for the opportunity to be of service. This is an electronically created document. IF PRINTED, PLEASE DO NOT REMOVE FROM THE CHART OR MODIFY PRINTED COPY. CONSULT Observed: 02/07/2018 Status: COMPLETED Source: [facility] 2:32 PM CLINIC OTHER CAMPUS REPOSITORY O ID: [id number] Author: Dorcas Mcdonnell III Service: Infectious Disease Author Type: Physician Type: Consults Filed: 02/07/2018 9:19 PM Note Text: CONSULT: INFECTIOUS DISEASE SERVICE SERVICE DATE: 02/07/2018 SERVICE TIME: 2:32 PM REASON FOR CONSULT: sepsis? REQUESTING PHYSICIAN: Dr. Granda PRIMARY CARE PHYSICIAN: Ji Hurst MD Subjective 77 year old male [...] Diagnosis Date - DIC (disseminated intravascular coagulation) ([facility]) 01/12/2018 PAST SURGICAL HISTORY Procedure Laterality Date [...] February 07, 2018 TIME: 2:32 PM PAGER: [phone] PROGRESS Observed: 02/07/2018 Status: COMPLETED Source: [facility] 2:17 PM CLINIC OTHER CAMPUS REPOSITORY HNO ID: [id number] Author: Paige [facility] FLAVIA Mcmahan Service: Nursing Author Type: Health Environmental Education Specialist Type: Progress Notes Filed: 02/07/2018 2:17 PM Note Text: ID Consult to Dr. Mcdonnell: verified on treatment team February 07, 2018 2:17 PM EKG (AK,AV,EU,FV,HL,CYNTHIA,MM,SP) Observed: Status: F Source: [facility] 02/07/2018 1:51 PM CLINIC OTHER CAMPUS REPOSITORY NAME : NAVEEN AKINS PID : [id number] : 1940 Gender : Male Race : ORD : [id number] Procedure Date : Feb 07 2018 13:51 [...] ms QTC Calculation(Bezet) : 462 ms P [place] : -32 degrees R [place] : 34 degrees T [place] : 73 degrees Test Reason : Check QT Location : 3 : ICC 3233 Overread By : MD Samuel Sergey Editted By : MD Samuel Sergey Referred By : PAULO LOVELACE Acquired by : Conor GREENE CONSULT PROG Observed: 02/07/2018 Status: COMPLETED Source: [facility] 12:56 PM CLINIC OTHER CAMPUS REPOSITORY HNO ID: [id number] Author: Elder Yu) Kalee Service: Critical Care [...] this interval not displayed. ABG: Invalid input(s): [id number] Assessment/Plan IMPRESSION: Critical Care Documentation: The patient has the following organ/system impairment(s): Encephalopathy and Respiratory failure (Acute) 77 year old male with PMH of AAA who was transferred to [facility] in shock 2/2 ruptured AAA c/b [...] CASE MANAGEM Observed: 02/07/2018 Status: COMPLETED Source: [facility] 12:49 PM [facility] REPOSITORY HNO ID: [id number] Author: Mel TylerRn) MAGALY Hickey Service: Care [...] CASE MANAGEM Observed: 02/07/2018 Status: COMPLETED Source: [facility] 12:35 PM [facility] REPOSITORY HNO ID: [id number] Author: Mel Garcia) MAGALY Hickey Service: Care Management Author Type: Registered Nurse Type: Care Mgt Progress Note Filed: 02/07/2018 12:47 PM Note Text: CARE MANAGEMENT PROGRESS NOTE SERVICE DATE: 02/07/2018 SERVICE TIME: 1235 LOS: 26 days Chart reviewed. Spoke with Paramjit from [facility] Able to accept patient at [facility] once family makes decision. Had long discussion with Shelly and daughter Ariadna. Family states they wish to continue with current code status Full code. States they are interested kari [facility] but have not toured facility yet. Both aware of Bed availability at [facility] but have not confirmed that as 1st [...] #: NUTRITION Observed: 02/07/2018 Status: COMPLETED Source: [facility] 12:33 PM CLINIC OTHER CAMPUS REPOSITORY HNO ID: [id number] Author: Viry Mosher RD Service: NST-Nutrition Support [...] in TPN bag ? Goal for [facility] Renal is 42 cc/hr providing 2000 calories [...] PREALB 18.8* Viry Mosher RD, LD Pager: [phone] Increments: 3 PROGRESS Observed: 02/07/2018 Status: COMPLETED Source: [facility] 11:18 AM CLINIC OTHER CAMPUS REPOSITORY HNO ID: [id number] Author: Calli (Rn) MAGALY Bonilla Service: Wound/Ostomy Author Type: Registered Nurse Type: Progress Notes Filed: 02/07/2018 11:22 AM Note Text: WOUND CARE NURSE PROGRESS NOTE SERVICE DATE: 02/07/2018 SERVICE TIME: 1040 REASON FOR VISIT: Wound TIME SPENT (minutes): 30 Documentation from Wound Expert can be found in scanned documents. Patient seen by Shiloh Magana CHILD CARE COOK and siva RN. Wound vac dressing changed [...] February 07, 2018 TIME: 11:19 AM CONTACT#: [id number] RBC PRODUCTS Collected: 02/07/2018 Status: F Source: [facility] 10:54 AM HEALTH SYSTEM REPOSITORY TYPE CODE TESTS RESULT OUT OF REFERENCE UNITS RANGE LAB UNIT1(LOINC ) Xmatch Unit 1 see below Result Comment: Compatible Performed By: #### RBCPS #### [place] [address] TYPE AND SCREEN Collected: 02/07/2018 Status: F Source: [facility] 10:30 AM HEALTH SYSTEM REPOSITORY TYPE CODE TESTS RESULT OUT OF REFERENCE UNITS RANGE LAB ABO(LOINC) O ABO Group LAB SHIP CONSTRUCTION TEACHER(LOINC ) RH Type Positive LAB ABSCR(LOIN C) Antibody NEGATIVE Screen LAB BBCMT(LOIN C) Comment See Below Result Comment: Screen &/or Xmatch expires in 3 days at 12 midnight. Redraw patient at that time. Performed By: #### T&S #### [facility] [address] [place], [place] [address] RBC PRODUCTS Collected: 02/07/2018 Status: F Source: [facility] 10:30 AM HEALTH SYSTEM REPOSITORY TYPE CODE TESTS RESULT OUT OF REFERENCE UNITS RANGE LAB UNIT1(LOINC ) Xmatch Unit 1 see below Result Comment: Compatible Performed By: #### RBCPS #### [facility] [address] [place], [place] [address] PROGRESS Observed: 02/07/2018 Status: COMPLETED Source: [facility] 10:13 AM CLINIC OTHER CAMPUS REPOSITORY O ID: [id number] Author: Shen Lorenzo Service: Nephrology Author Type: [...] (6 AM) oLra Soliz 40 mg at 02/07/18 0553 carboxymethylcellulose [...] 1 Drop BOTH EYES QID PRN Paulo (Assembler For Puller Over Hand) Hudock 1 Drop at 01/26/18 1724 heparin [...] do not hesitate to contact me at [phone] if there is any question or concern. Rosanna Talbert MD (Shen Lorenzo) PROGRESS Observed: 02/07/2018 Status: COMPLETED Source: [facility] 10:02 AM [facility] REPOSITORY O ID: [id number] Author: Gilbert (Edenilson) Kandace Service: Vascular Surgery [...] questions or concerns Mon-Fri 6a-5p please page [phone]. After 5pm and on Weekends and Holidays, please page [phone] if in ICU or [phone] if on RNF. SERVICE DATE: 02/07/2018 Subjective [...] 0659 02/07/18 07 - 02/08/18 0659 Shift 4264-8091 5103-4105 2800-4455 24 Hour Total 0976-5427 0605-3359 2250-6666 24 Hour Total I N T A K E IV 58 58 NS 0.9% 58 58 TPN/PPN 751 751 TPN 751 751 Irrigants 120 120 Irrigant/Flush Amount In (GI Feed/Drain 01/27/18 Assessment Gastrostomy) 120 120 Gastric Tube 160 236 396 Tube Feed Intake (I/O) (GI Feed/Drain 01/27/18 Assessment Gastrostomy) 160 236 396 Shift Total 4535 471 9399 O U T P U T Urine [...] Noted - Ruptured abdominal aortic aneurysm (AAA) ([facility]) 01/12/2018 - TERENCE (acute kidney injury) ([facility]) 01/30/2018 - Ileus ([facility]) 01/30/2018 - Acute liver failure without hepatic coma 01/30/2018 - Obesity, Class I, BMI 30-34.9 01/16/2018 - Anoxic encephalopathy ([facility]) 01/13/2018 - DIC (disseminated intravascular coagulation) ([facility]) 01/12/2018 - Acute respiratory failure ([facility]) 01/12/2018 - Cardiac arrest ([facility]) 01/12/2018 - AAA (abdominal aortic aneurysm, ruptured) ([facility]) 01/12/2018 Overview Note: Added automatically from request for surgery [id number] 77 year old male with Ruptured AAA [...] February 07, 2018 TIME: 10:06 AM Pager: [phone] IONIZED CALCIUM Collected: 02/07/2018 Status: F Source: [facility] 9:00 HEALTH SYSTEM REPOSITORY TYPE CODE TESTS RESULT OUT OF REFERENCE UNITS RANGE LAB CAION(LOINC 4.43-4.93 mg/dL ) Low Ionized 3.99 Calcium LAB PHCAI(LOINC 7.320-7.420 ) pH High 7.441 LAB CAPH(LOINC) 4.36-4.73 mg/dL Low Ionized 4.07 Ca,PH7.4 Performed By: #### IONCA #### [facility] [address] [place] [address] HEMOGRAM/DIFF Collected: 02/07/2018 Status: F Source: [facility] 9:00 AM HEALTH SYSTEM REPOSITORY TYPE CODE [...] LAB MONON(LOIN 0.30-0.82 thou/cmm C) Low Abs. Luna 0.29 LAB EOSN(LOINC 0.04-0.54 thou/cmm ) Abs. Eosin 0.23 LAB BASON(LOIN 0.01-0.08 thou/cmm C) Abs. Baso 0.01 Performed By: #### CBCD1 #### [place] [address] MAGNESIUM BLOOD Collected: 02/07/2018 Status: F Source: [facility] 9:00 AM HEALTH SYSTEM REPOSITORY TYPE CODE TESTS RESULT OUT OF REFERENCE UNITS RANGE LAB MAG(LOINC) 1.6-2.6 mg/dL Magnesium Blood 2.3 Performed By: #### MAG #### [place] [address] PHOSPHORUS BLOOD Collected: 02/07/2018 Status: F Source: [facility] 9:00 AM HEALTH SYSTEM REPOSITORY TYPE CODE TESTS RESULT OUT OF REFERENCE UNITS RANGE LAB PHOS(LOINC 2.5-4.9 mg/dL ) High Phosphorus Blood 5.8 Performed By: #### PHOS #### [address] [place] [address] BASIC PANEL Collected: 02/07/2018 Status: F Source: [facility] 9:00 AM HEALTH SYSTEM REPOSITORY TYPE CODE [...] Gap 17 Performed By: #### P8 #### [place] [id number] HEMOGRAM/DIFF Collected: 02/07/2018 Status: F Source: [facility] 6:20 AM HEALTH SYSTEM REPOSITORY TYPE CODE [...] 02/07/18. LAB MONON(LOINC) 0.30-0.82 thou/cmm see Abs. Luna below Result Comment: DISREGARD RESULTS- SAMPLE INTEGRITY [...] on 02/07/18. Performed By: #### CBCD1 #### [place] [id number] IONIZED CALCIUM Collected: 02/07/2018 Status: F Source: [facility] 6:20 AM HEALTH SYSTEM REPOSITORY TYPE CODE [...] on 02/07/18. Performed By: #### IONCA #### [place] [address] ALLIED HEALTH Observed: 02/06/2018 Status: COMPLETED Source: [facility] 9:33 PM [facility] OTHER CAMPUS REPOSITORY HNO ID: [id number] Author: Chaplain Perales (Chaplain) Service: Spiritual Care Author Type: Agency Owner Type: Allied Health Filed: 02/06/2018 9:37 PM [...] pt's room and prayed over pt.at 7:55pm Agency Owner Signature: Chaplain Diaz To contact the Spiritual Care Department: Please call [phone] or Page the On-Call Agency Owner at pager [phone] Thank you for the opportunity to be of service. This is an electronically created document. IF PRINTED, PLEASE DO NOT REMOVE FROM THE CHART OR MODIFY PRINTED COPY. Agency Owner Signature: Chaplain Diaz To contact the [facility] Care Department: Please call [phone] or Page the On-Call Agency Owner at pager [phone] Thank you for the opportunity to be of service. This is an electronically created document. IF PRINTED, PLEASE DO NOT REMOVE FROM THE CHART OR MODIFY PRINTED COPY. PROGRESS Observed: 02/06/2018 Status: COMPLETED Source: [facility] 3:16 PM CL[facility] OTHER CAMPUS REPOSITORY O ID: [id number] Author: Renate Handy Service: Nephrology Author Type: [...] 1 Drop BOTH EYES QID PRN Paulo (Assembler For Puller Over Hand) Hudock 1 Drop at 01/26/18 1724 heparin [...] DO PROGRESS Observed: 02/06/2018 Status: COMPLETED Source: [facility] 3:11 PM [facility]IN[facility] OTHER CAMPUS REPOSITORY [facility] ID: [id number] Author: Paulo Dial) Radu Service: Critical Care [...] ALT 92* MG 2.1 ABG: Invalid input(s): [id number] Assessment/Plan IMPRESSION: 1.Acute hypoxic respiratory failure/ARDS/Bilat pleuaral [...] 40 minutes excluding procedures. SIGNATURE: Paulo Lovelace APRN.MODEL BUILDER PATIENT NAME: Naveen Akins DATE: February 06, 2018 TIME: 3:12 PM PROGRESS Observed: 02/06/2018 Status: COMPLETED Source: [facility] 9:36 AM CL[facility] OTHER CAMPUS REPOSITORY HNO ID: [id number] Author: Shyam Degroot Service: Critical Care Author [...] ALT 92* MG 2.1 ABG: Invalid input(s): [id number] Assessment/Plan IMPRESSION: Critical Care Documentation: The patient [...] AM PROGRESS Observed: 02/06/2018 Status: COMPLETED Source: [place] 8:27 AM [facility] REPOSITORY O ID: [id number] Author: Braxton Sloan MD Service: Vascular Surgery [...] questions or concerns Mon-Fri 6a-5p please page [phone]. After 5pm and on Weekends and Holidays, please page [phone] if in ICU or [phone] if on [...] 02/06/18 0659 02/06/18699 - 02/07/18 0659 Shift 1301-0484 7289-8521 1082-4447 24 Hour Total 8013-2260 7118-2863 7223-7796 24 Hour Total I N T A K E TPN/PPN 778 778 TPN 778 778 Irrigants 60 80 140 Irrigant/Flush Amount In (GI Feed/Drain 01/27/18 Assessment Gastrostomy) 60 80 140 Gastric Tube 119 119 238 Tube Feed Intake (I/O) (GI Feed/Drain 01/27/18 Assessment Gastrostomy) 119 119 238 Shift Total 379 250 3240 O U T P U T Urine 106 216 1283 Urine Incontinence/Not Saved 1 x 1 x Tube Output ( Condom Catheter 02/02/18 2200) 863 712 5563 Tubes 0 0 0 0 Drain/Tube Output (Drain/Tube 01/19/18 1015 Midline Abdomen) 0 0 0 0 Stool 300 50 350 Liquid BM (mL) 300 50 350 Shift Total 0 845 119 4827 0 0 Weight (kg) 87.5 87.5 87.5 [...] Note: Added automatically from request for surgery [id number] 77 year old male with Ruptured AAA [...] anemia and thrombocytopenia - monitor, stable - TERNECE -->?IHD?per?Nephro. Good UOP for past 24. - [...] February 06, 2018 TIME: 8:27 AM Pager: [phone] PREALBUMIN Collected: 02/06/2018 Status: F Source: [facility] 5:56 AM HEALTH SYSTEM REPOSITORY TYPE CODE TESTS RESULT OUT OF REFERENCE UNITS RANGE LAB PAB(LOINC) 20.0-40.0 mg/dL Low Prealbumin 18.8 Performed By: #### PAB #### [facility] [address] [place], [place] [address] IONIZED CALCIUM Collected: 02/06/2018 Status: F Source: [facility] 5:56 HEALTH SYSTEM REPOSITORY TYPE CODE TESTS RESULT OUT OF REFERENCE UNITS RANGE LAB CAION(LOINC 4.43-4.93 mg/dL ) Low Ionized 3.95 Calcium LAB PHCAI(LOINC 7.320-7.420 ) pH 7.387 LAB CAPH(LOINC) 4.36-4.73 mg/dL Low Ionized 3.92 Ca,PH7.4 Performed By: #### IONCA #### [facility] [address] [place] [id number] HEMOGRAM/DIFF Collected: 02/06/2018 Status: F Source: [facility] 5:[address] [place] [address] SYSTEM REPOSITORY TYPE CODE TESTS RESULT OUT [...] 1.28 LAB MONON(LOIN 0.30-0.82 thou/cmm C) Abs. Luna 0.30 LAB EOSN(LOINC 0.04-0.54 thou/cmm ) Abs. Eosin 0.26 LAB BASON(LOIN 0.01-0.08 thou/cmm C) Abs. Baso 0.01 Performed By: #### CBCD1 #### [place] [address] BASIC PANEL Collected: 02/06/2018 Status: F Source: [facility] 5:56 AM HEALTH SYSTEM REPOSITORY TYPE CODE [...] Gap 15 Performed By: #### P8 #### [place] [address] HEPATIC PANEL Collected: 02/06/2018 Status: F Source: [facility] 5:56 AM HEALTH SYSTEM REPOSITORY TYPE CODE [...] 2.44 Performed By: #### HEPAP #### [facility] [address] [place] [address] TRIGLYCERIDE BLOOD Collected: 02/06/2018 Status: F Source: [facility] 5:56 AM HEALTH SYSTEM REPOSITORY TYPE CODE TESTS RESULT OUT OF REFERENCE UNITS RANGE LAB TRIG(LOINC 0-149 mg/dL ) Triglyceride High Blood 266 Result Comment: < 200 Desirable Result invalid if not a fasting specimen. Performed By: #### TRIG #### [facility] [address] [place] [address] CHEST 1 VIEW Observed: 02/06/2018 Status: F Source: [facility] 4:59 AM HEALTH SYSTEM REPOSITORY Performed at [facility] APPROVED BY: KRISTIE KHAN MD EXAM [...] effusion. PROGRESS Observed: 02/05/2018 Status: COMPLETED Source: [facility] 2:19 PM [facility] OTHER [facility]AMPUS REPOSITORY HNO ID: [id number] Author: Renate Handy Service: Nephrology Author Type: [...] 1 Drop BOTH EYES QID PRN Paulo (Assembler For Puller Over Hand) Hudock 1 Drop at 01/26/18 1724 heparin [...] DO PROGRESS Observed: 02/05/2018 Status: COMPLETED Source: [facility] 1:25 PM [facility] OTHER [facility]AMPUS REPOSITORY O ID: [id number] Author: Braxton (Luther Sloan MD Service: Vascular [...] questions or concerns Mon-Fri 6a-5p please page [phone]. After 5pm and on Weekends and Holidays, please page [phone] if in ICU or [phone] if on RNF. SERVICE DATE: 02/05/2018 Subjective [...] 0659 02/05/18 07 - 02/06/18 0659 Shift 2001-3019 6875-1540 5504-7673 24 Hour Total 4925-7469 3066-5018 2921-8976 24 Hour Total I N T A K E IV 338 24 362 NS 0.9% 38 24 62 Vancomycin IV 200 200 Meropenem (Merrem) 100 100 TPN/PPN 793 329 6906 TPN 591 978 0550 Irrigants 80 30 110 Irrigant/Flush Amount In (GI Feed/Drain 01/27/18 Assessment Gastrostomy) 80 30 110 Gastric Tube 76 80 156 Tube Feed Intake (I/O) (GI Feed/Drain 01/27/18 Assessment Gastrostomy) 76 80 156 Shift Total 9290 129 0151 O U T P U T Urine 280 979 555 6847 Tube Output ( Condom Catheter 02/02/18 2200) 280 575 138 0424 Drains 0 0 Negative Pressure: Output (mL) (Negative Pressure Wound Therapy 01/12/18 0749 Abdomen) 0 0 Tubes 60 0 60 0 0 Drain/Tube Output (Drain/Tube 01/19/18 1015 Midline Abdomen) 60 0 60 0 0 # of BMs Stool Incontinence 1 x 1 x 2 x Number of BMs 2 x 2 x Stool 300 300 Liquid BM (mL) 300 300 Shift Total 280 646 174 6851 0 0 Weight (kg) 82.8 82.8 87.5 [...] respiratory failure (HCC) 01/12/2018 - Cardiac arrest ([facility]) 01/12/2018 - AAA (abdominal aortic aneurysm, ruptured) ([facility]) 01/12/2018 Overview Note: Added automatically from request for surgery [id number] 77 year old male with Ruptured AAA [...] SIGNATURE: Braxton Sloan MD PATIENT NAME: Naveen Aikns DATE: February 05, 2018 TIME: 1:25 PM Pager: [phone] PROGRESS Observed: 02/05/2018 Status: COMPLETED Source: [facility] 8:54 AM [facility]IN[facility] OTHER CAMPUS REPOSITORY HNO ID: [id number] Author: Lora Soliz Service: Critical Care Author [...] CA 7.0* MG 2.0 ABG: Invalid input(s): [id number] Assessment/Plan PROBLEMS: Patient Active Hospital Problem List: Ruptured abdominal aortic aneurysm (AAA) ([facility]) (01/12/2018) DIC (disseminated intravascular coagulation) ([facility]) (01/12/2018) Acute respiratory failure ([facility]) (01/12/2018) Cardiac arrest ([facility]) (01/12/2018) Anoxic encephalopathy ([facility]) (01/13/2018) AAA (abdominal aortic aneurysm, ruptured) ([facility]) (01/12/2018) Obesity, Class I, BMI 30-34.9 (01/16/2018) [...] OUTLOOK, no better to me TERENCE on TREASURY ASSOCIATE, controlled azotemia but higher off cvvhd, resume?HD [...] ?CheyneStokes periodic breathing noted on 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 Tpn at 1700kcal /day, low [...] 02/03 and 02/04 pending blood cx 6. Assembler For Puller Over Hand a concern, poor outlook 7. Dcd?betty ?>?10 days, off norepi 8. PICC done ,?new tunneled HD cath Tuesday pre LTAC 9. Wound care?, vaccum 10. REC: ?DNR, family been resistent , I talked to son yesterday who acknowledged poor status and coma but is very spiritual.?Daughters aware of no motor vehicle assembly supervisor recovery, discussed today 11. calcium? 12. epogen product with CRF 13. CXR IN AM 14. LTAC next week SIGNATURE: Lora Soliz MD PATIENT NAME: Naveen Akins DATE: February 05, 2018 TIME: 8:54 AM IONIZED CALCIUM Collected: 02/05/2018 Status: F Source: [facility] 5:43 AM HEALTH SYSTEM REPOSITORY TYPE CODE TESTS RESULT OUT OF REFERENCE UNITS RANGE LAB CAION(LOINC 4.43-4.93 mg/dL ) Low Ionized 3.92 Calcium LAB PHCAI(LOINC 7.320-7.420 ) pH High 7.430 LAB CAPH(LOINC) 4.36-4.73 mg/dL Low Ionized 3.98 Ca,PH7.4 Performed By: #### IONCA #### [facility] [address] [place] [address] HEMOGRAM/DIFF Collected: 02/05/2018 Status: F Source: [facility] 5:43 AM HEALTH SYSTEM REPOSITORY TYPE CODE [...] 1.13 LAB MONON(LOIN 0.30-0.82 thou/cmm C) Abs. Luna 0.30 LAB EOSN(LOINC 0.04-0.54 thou/cmm ) Abs. Eosin 0.27 LAB BASON(LOIN 0.01-0.08 thou/cmm C) Abs. Baso 0.01 Result Comment: Smear scanned; tech agrees with automated differential Performed By: #### CBCD1 #### [place] [address] VANCOMYCIN,TROUGH Collected: Status: F Source: [place] 02/05/2018 5:43 AM [facility] REPOSITORY TYPE CODE TESTS RESULT OUT OF RANGE REFERENCE UNITS LAB VANCT(LOINC 10.0-20.0 mg/L ) 19.9 Vancomycin,T rough Performed By: #### VANCT #### [place] [address] BASIC PANEL Collected: 02/05/2018 Status: F Source: [facility] 5:43 AM [facility] SYSTEM REPOSITORY TYPE CODE TESTS RESULT OUT [...] 15 Performed By: #### P8 #### [facility] [address] [place] [address] MAGNESIUM BLOOD Collected: 02/05/2018 Status: F Source: [facility] 5:43 AM HEALTH SYSTEM REPOSITORY TYPE CODE TESTS RESULT OUT OF REFERENCE UNITS RANGE LAB MAG(LOINC) 1.6-2.6 mg/dL Magnesium Blood 2.0 Performed By: #### MAG #### [facility] [address] [place] [address] PHOSPHORUS BLOOD Collected: 02/05/2018 Status: F Source: [facility] 5:43 AM HEALTH SYSTEM REPOSITORY TYPE CODE TESTS RESULT OUT OF REFERENCE UNITS RANGE LAB PHOS(LOINC 2.5-4.9 mg/dL ) Phosphorus Blood 4.5 Performed By: #### PHOS #### [facility] [address] [place] [address] PROGRESS Observed: 02/04/2018 Status: COMPLETED Source: [facility] 1:35 PM CLINIC OTHER CAMPUS REPOSITORY HNO ID: [id number] Author: Renate Handy Service: Nephrology Author Type: [...] 1 Drop BOTH EYES QID PRN Paulo (Assembler For Puller Over Hand) Hudock 1 Drop at 01/26/18 1724 heparin [...] 15 mL at 02/04/18 0821 No current [facility]-ordered outpatient prescriptions on file. Vitals: BP 94/51 [...] DO PROGRESS Observed: 02/04/2018 Status: COMPLETED Source: [place] 9:[address] [facility] OTHER CAMPUS REPOSITORY O ID: [id number] Author: Lora Soliz Service: Critical Care Author [...] CA 6.7* MG 1.7 ABG: Invalid input(s): [id number] Assessment/Plan PROBLEMS: Patient Active Hospital Problem List: Ruptured abdominal aortic aneurysm (AAA) ([facility]) (01/12/2018) DIC (disseminated intravascular coagulation) ([facility]) (01/12/2018) Acute respiratory failure ([facility]) (01/12/2018) Cardiac arrest ([facility]) (01/12/2018) Anoxic encephalopathy ([facility]) (01/13/2018) AAA (abdominal aortic aneurysm, ruptured) ([facility]) (01/12/2018) Obesity, Class I, BMI 30-34.9 (01/16/2018) TERENCE (acute kidney injury) ([facility]) (01/30/2018) Ileus ([facility]) (01/30/2018) Acute liver failure without hepatic coma [...] OUTLOOK, no better to me 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 Tpn at 1700kcal /day, low TF; [...] and gave vanco one dose 02/03 6. Assembler For Puller Over Hand a concern, poor outlook 7. Dcd?betty ?>?10 days, off norepi 8. PICC done ,?new tunneled HD cath Tuesday 9. Wound care? 10. REC: DNR, family been resistent per staff , I talked to son yesterday who acknowledged poor status and coma but is very spiritual.?Daughter aware of no motor vehicle assembly supervisor recovery, discussed today ?11. calcium 12. epogen [...] AM PROGRESS Observed: 02/04/2018 Status: COMPLETED Source: [place] 6:[address] [facility] OTHER CAMPUS REPOSITORY O ID: [id number] Author: Braxton (Luther Sloan MD Service: Vascular [...] 02/03/18699 - 02/04/1865802/04/18699 - 02/05/18 0659 Shift 2518-7226 9893-6296 8857-0184 24 Hour Total 5789-9744 1947-4861 4854-3472 24 Hour Total I N T A [...] U T P U T Urine 450 323 356 3612 Tube Output ( Condom Catheter 02/02/18 2200) 450 229 786 3809 Tubes 175 30 205 Drain/Tube Output (Drain/Tube 01/19/18 1015 Midline Abdomen) 125 30 155 Drain/Tube Output (Drain/Tube 02/02/18 0300 Fecal Management System Rectum) 50 50 Output (GI Feed/Drain 01/27/18 Assessment Gastrostomy) 0 0 Dialysis 1400 1400 Dialysis Output (Ultrafiltration) 1400 1400 Shift Total 655 966 3724 2905 Weight (kg) 83.4 83.4 82.8 82.8 [...] Noted - Ruptured abdominal aortic aneurysm (AAA) ([facility]) 01/12/2018 - TERENCE (acute kidney injury) ([facility]) 01/30/2018 - Ileus ([facility]) 01/30/2018 - Acute liver failure without hepatic coma 01/30/2018 - Obesity, Class I, BMI 30-34.9 01/16/2018 - Anoxic encephalopathy ([facility]) 01/13/2018 - DIC (disseminated intravascular coagulation) ([facility]) 01/12/2018 - Acute respiratory failure ([facility]) 01/12/2018 - Cardiac arrest ([facility]) 01/12/2018 - AAA (abdominal aortic aneurysm, ruptured) ([facility]) 01/12/2018 Overview Note: Added automatically from request for surgery [id number] 77 year old male with Ruptured AAA [...] February 04, 2018 TIME: 6:57 AM Pager: [phone] IONIZED CALCIUM Collected: 02/04/2018 Status: F Source: [facility] 5:40 AM HEALTH SYSTEM REPOSITORY TYPE CODE TESTS RESULT OUT OF REFERENCE UNITS RANGE LAB CAION(LOINC 4.43-4.93 mg/dL ) Low Ionized 3.82 Calcium LAB PHCAI(LOINC 7.320-7.420 ) pH High 7.467 LAB CAPH(LOINC) 4.36-4.73 mg/dL Low Ionized 3.96 Ca,PH7.4 Performed By: #### IONCA #### [place] [address] HEMOGRAM/DIFF Collected: 02/04/2018 Status: F Source: [facility] 5:40 AM HEALTH SYSTEM REPOSITORY TYPE CODE [...] 1.11 LAB MONON(LOIN 0.30-0.82 thou/cmm C) Abs. Luna 0.35 LAB EOSN(LOINC 0.04-0.54 thou/cmm ) Abs. Eosin 0.26 LAB BASON(LOIN 0.01-0.08 thou/cmm C) Abs. Baso 0.02 Performed By: #### CBCD1 #### [place] [address] BASIC PANEL Collected: 02/04/2018 Status: F Source: [facility] 5:40 AM HEALTH SYSTEM REPOSITORY TYPE CODE [...] Gap 13 Performed By: #### P8 #### [place] [address] MAGNESIUM BLOOD Collected: 02/04/2018 Status: F Source: [facility] 5:40 AM HEALTH SYSTEM REPOSITORY TYPE CODE TESTS RESULT OUT OF REFERENCE UNITS RANGE LAB MAG(LOINC) 1.6-2.6 mg/dL Magnesium Blood 1.7 Performed By: #### MAG #### [facility] [address] [place] [address] PHOSPHORUS BLOOD Collected: 02/04/2018 Status: F Source: [facility] 5:40 AM HEALTH SYSTEM REPOSITORY TYPE CODE TESTS RESULT OUT OF REFERENCE UNITS RANGE LAB PHOS(LOINC 2.5-4.9 mg/dL ) Phosphorus Blood 2.6 Performed By: #### PHOS #### [facility] [address] [place] [address] VANCOMYCIN,RANDOM Collected: Status: F Source: [place] 02/04/2018 5:[address] [facility] SYSTEM REPOSITORY TYPE CODE TESTS RESULT OUT OF RANGE REFERENCE UNITS LAB VANCR(LOINC mg/L ) 11.9 Vancomycin,R andom Result Comment: Trough 10.0-20.0 mg/L Peak 18.0-40.0 mg/L Performed By: #### VANCR #### [place] [address] PROGRESS Observed: 02/03/2018 Status: COMPLETED Source: [place] 11:38 PM [facility] REPOSITORY HNO ID: [id number] Author: Kelsey (Rn) Becki RN Service: Dialysis Author Type: Registered Nurse Type: Progress Notes Filed: 02/03/2018 11:39 PM Note Text: Hemodialysis x 3.5 hours with 4K bath; Tolerated fair. BP 79-120's. Removed = -800; R femoral CVC capped AND locked with heparin per lumen Fill volume. Report given. PROGRESS Observed: 02/03/2018 Status: COMPLETED Source: [place] 1:44 PM [facility] REPOSITORY HNO ID: [id number] Author: Abbi TylerRn) MAGALY Mtz Service: Wound [...] RN unable to correct call wound care ([phone]) or [facility] (number located on wound vac [...] February 03, 2018 TIME: 2:19 PM CONTACT#: [id number] CT ABDOMEN AND PELVIS Observed: 02/03/2018 Status: F Source: D1G W/O CONTRAST 1:15 PM HEALTH SYSTEM REPOSITORY Performed at [facility] APPROVED BY: Skip Hickey MD EXAMINATION: [...] CASE MANAGEM Observed: 02/03/2018 Status: COMPLETED Source: [facility] 11:38 AM CLINIC OTHER CAMPUS REPOSITORY O ID: [id number] Author: Lupe (Rn) MAGALY Cheng Service: Care Management Author Type: Registered Nurse Type: Care Mgt Progress Note Filed: 02/03/2018 11:54 AM Note Text: CARE MANAGEMENT PROGRESS NOTE SERVICE DATE: 02/03/2018 SERVICE TIME: 11:39 AM LOS: 22 days Needs Prior to Discharge: To Be Determined ([facility] able to accept patient) Chart reviewed. Spoke with patient's spouse Shelly and patient's son Manjit in the waiting area. First choice for LTACH at this time is [facility]. Although Shelly states patient's family will be touring all LTACH facilities this weekend. pressroom worker Jenna Orozco updated. Will continue to follow clinical course for further DC planning needs. SIGNATURE: Lupe Cheng RN PATIENT NAME: Naveen Akins DATE: February 03, 2018 TIME: 11:39 AM PAGER/CONTACT #: [phone] Observed: 02/03/2018 Status: F Source: [facility] 11:30 AM HEALTH SYSTEM RESPIRATORY REPOSITORY Test performed at [facility] Few normal oropharyngeal john Moderate Gram negative bacilli Few Gram positive cocci Many Polymorphonuclear leukocytes ORGANISM: Ach xylosoxidans ssp xylosoxidans (ID: 1) Moderate ORGANISM: Enterobacter cloacae (ID: 2) Few Performed By: #### C_RES #### [address] [address] PROGRESS Observed: 02/03/2018 Status: COMPLETED Source: [facility] 9:25 AM CLINIC OTHER CAMPUS REPOSITORY HNO ID: [id number] Author: Vicky Devi MD Service: Nephrology Author [...] Adult INTRAVENOUS ONCE TPN (1800 START) H Ewdin Dudley Last Rate: 62.5 mL/hr at 02/02/18 [...] 12 H Lora Soliz 5 mg at 02/02/182106 0.9% NaCl [...] 1 Drop BOTH EYES QID PRN Paulo (Assembler For Puller Over Hand) Hudock 1 Drop at 01/26/18 1724 heparin [...] 15 mL at 02/03/18 0920 No current [facility]-ordered outpatient prescriptions on file. Vitals: BP 112/56 [...] DEVI MD Observed: 02/03/2018 Status: F Source: [facility] BLOOD 9:20 AM HEALTH SYSTEM REPOSITORY Test performed at [facility] No growth Performed By: #### C_BLO #### [place] [address] PROGRESS Observed: 02/03/2018 Status: COMPLETED Source: [place] 9:06 AM [facility] OTHER CAMPUS REPOSITORY HNO ID: [id number] Author: Paulo Dial) Radu Service: Critical Care [...] 40 minutes excluding procedures. SIGNATURE: Paulo Lovelace APRN.MODEL BUILDER PATIENT NAME: Naveen Akins DATE: February 03, 2018 TIME: 9:06 AM PROGRESS Observed: 02/03/2018 Status: COMPLETED Source: [place] 8:[address] [facility] OTHER CAMPUS REPOSITORY [facility] ID: [id number] Author: Lora Soliz Service: Critical Care Author [...] (HCC) (01/13/2018) AAA (abdominal aortic aneurysm, ruptured) ([facility]) (01/12/2018) Obesity, Class I, BMI 30-34.9 (01/16/2018) TERENCE (acute kidney injury) ([facility]) (01/30/2018) Ileus (HCC) (01/30/2018) Acute liver failure without hepatic coma (01/30/2018) AAA rupture with msof, multiple reops, now fascial closure, inc wound vac output LOW grade fevers, mild inc wbc on merrum; picc ok/new; fi02 stable; wound grossly ok. 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 Assembler For Puller Over Hand a concern, poor outlook 7. Dcd betty [...] AM PROGRESS Observed: 02/03/2018 Status: COMPLETED Source: [place] 6:23 AM [facility] REPOSITORY O ID: [id number] Author: Dionicio Stevens Service: Vascular Surgery Author [...] 0659 02/03/18 0700 - 02/04/18 0659 Shift 7789-9257 5763-8703 5917-4660 24 Hour Total 1317-0610 9809-0251 6938-1235 24 Hour Total I N T A [...] Noted - Ruptured abdominal aortic aneurysm (AAA) ([facility]) 01/12/2018 - TERENCE (acute kidney injury) ([facility]) 01/30/2018 - Ileus ([facility]) 01/30/2018 - Acute liver failure without hepatic coma 01/30/2018 - Obesity, Class I, BMI 30-34.9 01/16/2018 - Anoxic encephalopathy (HCC) 01/13/2018 - DIC (disseminated intravascular coagulation) ([facility]) 01/12/2018 - Acute respiratory failure ([facility]) 01/12/2018 - Cardiac arrest ([facility]) 01/12/2018 - AAA (abdominal aortic aneurysm, ruptured) ([facility]) 01/12/2018 Overview Note: Added automatically from request for surgery [id number] 77 year old male with Ruptured AAA [...] questions or concerns Mon-Fri 6a-5p please page [phone]. After 5pm and on Weekends and Holidays, please page [phone] if in ICU or [phone] if on RNF. IONIZED CALCIUM Collected: 02/03/2018 Status: F Source: [facility] 4:45 AM HEALTH SYSTEM REPOSITORY TYPE CODE TESTS RESULT OUT OF REFERENCE UNITS RANGE LAB CAION(LOINC 4.43-4.93 mg/dL ) Low Ionized 3.92 Calcium LAB PHCAI(LOINC 7.320-7.420 ) pH High 7.425 LAB CAPH(LOINC) 4.36-4.73 mg/dL Low Ionized 3.97 Ca,PH7.4 Performed By: #### IONCA #### [facility] [address] [place] [address] HEMOGRAM/DIFF Collected: 02/03/2018 Status: F Source: [facility] 4:45 AM HEALTH SYSTEM REPOSITORY TYPE CODE [...] 1.33 LAB MONON(LOIN 0.30-0.82 thou/cmm C) Abs. Luna 0.56 LAB EOSN(LOINC 0.04-0.54 thou/cmm ) Abs. Eosin 0.11 LAB BASON(LOIN 0.01-0.08 thou/cmm C) Abs. Baso 0.04 Performed By: #### CBCD1 #### [place] [address] BASIC PANEL Collected: 02/03/2018 Status: F Source: [facility] 4:45 AM HEALTH SYSTEM REPOSITORY TYPE CODE [...] Gap 12 Performed By: #### P8 #### [place] [address] MAGNESIUM BLOOD Collected: 02/03/2018 Status: F Source: [facility] 4:45 AM HEALTH SYSTEM REPOSITORY TYPE CODE TESTS RESULT OUT OF REFERENCE UNITS RANGE LAB MAG(LOINC) 1.6-2.6 mg/dL Low Magnesium Blood 1.4 Performed By: #### MAG #### [place] [id number] PHOSPHORUS BLOOD Collected: 02/03/2018 Status: F Source: [facility] 4:45 AM HEALTH SYSTEM REPOSITORY TYPE CODE TESTS RESULT OUT OF REFERENCE UNITS RANGE LAB PHOS(LOINC 2.5-4.9 mg/dL ) Low Phosphorus Blood 2.2 Performed By: #### PHOS #### [facility] [address] [place] [address] ALLIED HEALTH Observed: 02/02/2018 Status: COMPLETED Source: [place] 1:00 PM [facility] REPOSITORY HNO ID: [id number] Author: Maggi Salas) Chaplain Brain Service: Spiritual Care Author Type: Agency Owner Type: Allied Health Filed: 02/02/2018 2:26 PM [...] him next week. Will continue to follow. Agency Owner Signature: Chaplain Daphne To contact the Spiritual Care Department: Please call [phone] or Page the On-Call Agency Owner at pager [phone] Thank you for the opportunity to be of service. This is an electronically created document. IF PRINTED, PLEASE DO NOT REMOVE FROM THE CHART OR MODIFY PRINTED COPY. PROGRESS Observed: 02/02/2018 Status: COMPLETED Source: [place] 12:[address] [facility] REPOSITORY HNO ID: [id number] Author: Vicky Devi MD Service: Nephrology Author [...] 15 mg PEG q 8 H Lora Solzi 15 mg at 02/02/18 0604 pantoprazole 40 [...] 1 Drop BOTH EYES QID PRN Paulo (Assembler For Puller Over Hand) [place] 1 Drop at 01/26/18 1724 heparin [...] 15 mL at 02/02/18 0759 No current [facility]-ordered outpatient prescriptions on file. Vitals: BP 113/69 [...] MD NUTRITION Observed: 02/02/2018 Status: COMPLETED Source: [place] 10:54 AM [facility] REPOSITORY O ID: [id number] Author: Viry Mosher RD Service: NST-Nutrition Support [...] units in TPN bag ? [facility] Renal is 42 cc/hr providing 2000 calories [...] PREALB 27.[address], LD, [facility] Pager: [phone] Increments: 3 PROGRESS Observed: 02/02/2018 Status: COMPLETED Source: [place] 9:[address] [facility] REPOSITORY O ID: [id number] Author: Lora Soliz Service: Critical Care Author [...] Diagnosis Date - DIC (disseminated intravascular coagulation) ([facility]) 01/12/2018 PAST SURGICAL HISTORY Procedure Laterality Date [...] Problem List: Ruptured abdominal aortic aneurysm (AAA) ([facility]) (01/12/2018) DIC (disseminated intravascular coagulation) ([facility]) (01/12/2018) Acute respiratory failure ([facility]) (01/12/2018) Cardiac arrest ([facility]) (01/12/2018) Anoxic encephalopathy ([facility]) (01/13/2018) AAA (abdominal aortic aneurysm, ruptured) ([facility]) (01/12/2018) Obesity, Class I, BMI 30-34.9 (01/16/2018) TERENCE (acute kidney injury) ([facility]) (01/30/2018) Ileus ([facility]) (01/30/2018) Acute liver failure without hepatic coma (01/30/2018) AAA rupture with msof, multiple reops, now fascial closure resolved hypotension/?shock, increased Midodrine and gave rbc to assist BP Severe anoxic enceph POOR OUTLOOK TERENCE on TREASURY ASSOCIATE, controlled azotemia but higher off cvvhd, resume [...] 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 Tpn at 1700kcal /day, low TF; reglan noted (EKG qtc 480) so decrease #; prealb 23; 3. HD; fluid even; 4. Taper steroids hydrocortisone 25mg, stop 5. merrum thru 02/07 noted 6. Assembler For Puller Over Hand a concern, poor outlook 7. Dcd betty > 10 days, nil norepi 8. PICC done ,?new tunneled HD cath soon?if needs further TREASURY ASSOCIATE 9. Wound care? 10. Should be DNR, [...] AM PROGRESS Observed: 02/02/2018 Status: COMPLETED Source: [place] 6:15 AM CLINIC OTHER CAMPUS REPOSITORY O ID: [id number] Author: Dionicio Stevens Service: Vascular Surgery Author [...] questions or concerns Mon-Fri 6a-5p please page [phone]. After 5pm and on Weekends and Holidays, please page [phone] if in ICU or [phone] if on RNF. Subjective SUBJECTIVE: NAEON Diet: [...] 0659 02/02/18 0700 - 02/03/18 0659 Shift 0551-4213 5489-2172 0907-5156 24 Hour Total 7867-2613 9760-6529 5900-8019 24 Hour Total I N T A [...] 2 x 2 x Shift Total 580 742 416 3325 Weight (kg) 85.5 87 87 87 87 [...] Noted - Ruptured abdominal aortic aneurysm (AAA) ([facility]) 01/12/2018 - TERENCE (acute kidney injury) ([facility]) 01/30/2018 - Ileus ([facility]) 01/30/2018 - Acute liver failure without hepatic coma 01/30/2018 - Obesity, Class I, BMI 30-34.9 01/16/2018 - Anoxic encephalopathy ([facility]) 01/13/2018 - DIC (disseminated intravascular coagulation) ([facility]) 01/12/2018 - Acute respiratory failure ([facility]) 01/12/2018 - Cardiac arrest ([facility]) 01/12/2018 - AAA (abdominal aortic aneurysm, ruptured) ([facility]) 01/12/2018 Overview Note: Added automatically from request for surgery [id number] 77 year old male with Ruptured AAA [...] RNF. HEMOGRAM/DIFF Collected: 02/02/2018 Status: F Source: [facility] 5:00 AM HEALTH SYSTEM REPOSITORY TYPE CODE [...] 0.82 LAB MONON(LOIN 0.30-0.82 thou/cmm C) Abs. Luna 0.43 LAB EOSN(LOINC 0.04-0.54 thou/cmm ) Low Abs. Eosin 0.01 LAB BASON(LOIN 0.01-0.08 thou/cmm C) Abs. Baso 0.01 Result Comment: Smear scanned; tech agrees with automated differential Performed By: #### CBCD1 #### [place] [address] IONIZED CALCIUM Collected: 02/02/2018 Status: F Source: [facility] 5:00 AM HEALTH SYSTEM REPOSITORY TYPE CODE TESTS RESULT OUT OF REFERENCE UNITS RANGE LAB CAION(LOINC 4.43-4.93 mg/dL ) Low Ionized 3.83 Calcium LAB PHCAI(LOINC 7.320-7.420 ) pH High 7.421 LAB CAPH(LOINC) 4.36-4.73 mg/dL Low Ionized 3.87 Ca,PH7.4 Performed By: #### IONCA #### [place] [address] BASIC PANEL Collected: 02/02/2018 Status: F Source: [facility] 5:00 HEALTH SYSTEM REPOSITORY TYPE CODE TESTS [...] Gap 17 Performed By: #### P8 #### [place] [address] PREALBUMIN Collected: 02/02/2018 Status: F Source: [facility] 5:00 [facility] SYSTEM REPOSITORY TYPE CODE TESTS RESULT OUT OF REFERENCE UNITS RANGE LAB PAB(LOINC) 20.0-40.0 mg/dL Prealbumin 27.5 Performed By: #### PAB #### [place] [address] TRIGLYCERIDE BLOOD Collected: 02/02/2018 Status: F Source: [facility] 5:00 AM HEALTH SYSTEM REPOSITORY TYPE CODE TESTS RESULT OUT OF REFERENCE UNITS RANGE LAB TRIG(LOINC 0-149 mg/dL ) Triglyceride High Blood 336 Result Comment: < 200 Desirable Result invalid if not a fasting specimen. Performed By: #### TRIG #### [facility] [address] [place] [address] MAGNESIUM BLOOD Collected: 02/02/2018 Status: F Source: [facility] 5:00 AM HEALTH SYSTEM REPOSITORY TYPE CODE TESTS RESULT OUT OF REFERENCE UNITS RANGE LAB MAG(LOINC) 1.6-2.6 mg/dL Magnesium Blood 1.8 Performed By: #### MAG #### [place] [address] PHOSPHORUS BLOOD Collected: 02/02/2018 Status: F Source: [facility] 5:00 AM HEALTH SYSTEM REPOSITORY TYPE CODE TESTS RESULT OUT OF REFERENCE UNITS RANGE LAB PHOS(LOINC 2.5-4.9 mg/dL ) Phosphorus Blood 4.9 Performed By: #### PHOS #### [place] [address] CASE MANAGEM Observed: 02/01/2018 Status: COMPLETED Source: [place] 2:31 PM CLINIC OTHER CAMPUS REPOSITORY O ID: [id number] Author: Steve (Magaly) MAGALY Rivera Service: Care [...] per MD note if pt needs further TREASURY ASSOCIATE. Per MD note, prognosis is poor and family has been very resistant to DNR. Will continue to follow for dc needs. SIGNATURE: Steve Rivera RN PATIENT NAME: Naveen Akins DATE: February 01, 2018 TIME: 2:31 PM PAGER/CONTACT #: [phone] PROGRESS Observed: 02/01/2018 Status: COMPLETED Source: [place] 1:32 PM [facility] REPOSITORY HNO ID: [id number] Author: Abbi Garcia) MAGALY Mtz Service: Wound [...] February 01, 2018 TIME: 2:33 PM CONTACT#: [id number] PROGRESS Observed: 02/01/2018 Status: COMPLETED Source: [place] 11:05 AM [facility] REPOSITORY HNO ID: [id number] Author: Lora Soliz Service: Critical Care Author [...] Problem List: Ruptured abdominal aortic aneurysm (AAA) ([facility]) (01/12/2018) DIC (disseminated intravascular coagulation) ([facility]) (01/12/2018) Acute respiratory failure ([facility]) (01/12/2018) Cardiac arrest ([facility]) (01/12/2018) Anoxic encephalopathy ([facility]) (01/13/2018) AAA (abdominal aortic aneurysm, ruptured) ([facility]) (01/12/2018) Obesity, Class I, BMI 30-34.9 (01/16/2018) TERENCE (acute kidney injury) ([facility]) (01/30/2018) Ileus (HCC) (01/30/2018) Acute liver failure without hepatic coma (01/30/2018) AAA rupture with msof, multiple reops, now fascial closure Persistent hypotension/ shock, increased Midodrine and gave rbc to assist BP Severe anoxic enceph POOR OUTLOOK TERENCE on TREASURY ASSOCIATE, controlled azotemia but higher off cvvhd, hold [...] 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 Tpn at 1700kcal /day, ?low TF; reglan noted (EKG qtc 480) so decrease #; prealb 23; ?take GT off suction soon 3. Cvvhd off; fluid even; 4. Taper steroids hydrocortisone 25mg 5. merrum 6. Assembler For Puller Over Hand a concern, poor outlook 7. Dc betty > 10 days, nil norepi 8. PICC done ,cvl > 10 days; ?new tunneled HD cath soon?if needs further TREASURY ASSOCIATE 9. Wound care 10. Should be DNR, [...] AM NUTRITION Observed: 02/01/2018 Status: COMPLETED Source: [place] 10:57 AM CLINIC OTHER CAMPUS REPOSITORY HNO ID: [id number] Author: Viry Wells) KRISHAN Mosher Service: NST-Nutrition [...] Resting Metabolic Rate: 1559 Estimated kilocalorie needs: 2954-8301 kilocalories determined by 20-30 kcal/kg Estimated protein [...] 0659 02/01/18 0700 - 02/02/18 0659 Shift 3757-7388 6651-6959 2361-4064 24 Hour Total 7649-8190 9274-6212 0576-0918 24 Hour Total I N T A [...] 1 VIEW Observed: 02/01/2018 Status: F Source: [facility] 10:06 AM HEALTH SYSTEM REPOSITORY Performed at [facility] APPROVED BY: GILBERT NAVARRO MD ABDOMEN, 1 VIEW. CLINICAL INFORMATION: Abdominal pain TECHNIQUE: Supine abdomen, 1 image(s) COMPARISON: 01/23/2018 RESULT: Previously seen NG tube is been removed. G-tube seen in the LEFT upper quadrant. Right femoral catheter. There are no dilated bowel loops. Degenerative changes in the spine. No pathologic calcifications. IMPRESSION: NO ACUTE ABNORMALITY PROCEDURE Observed: 02/01/2018 Status: COMPLETED Source: [place] 8:[address] [facility] OTHER CAMP[facility] REPOSITORY HNO ID: [id number] Author: Stacey (Magaly) MAGALY Henry Service: PICC Team Author Type: Registered Nurse Type: Procedures Filed: 02/01/2018 9:03 AM Note Text: PICC/MIDLINE CATHETER GUIDEWIRE EXCHANGE DATE OF PROCEDURE: February 01, 2018 TIME OF PROCEDURE: 815 ORDERING PHYSICIAN: Dr Paniagua INFORMED CONSENT: obtained per hospital policy. INDICATION FOR LINE PLACEMENT: Vesicant medication-high risk for extravasation CONDITION OF LINE PLACEMENT: Sterile PRIMARY PROCEDURALIST: Stacey Henry RN CONSTRUCTION CONTROLLER: Beena Pena PRE-PROCEDURE REVIEW ALLERGIES No Known [...] not in optimal position Brand: Melinda Lot: [id number] Number of lumens: 2 Type of PICC: Power Injectable PICC Lumen size: 5.5 Spanish PLACEMENT TECHNIQUE Lidocaine: No Modified Seldinger Technique [...] Placed in chart QUESTIONS or PROBLEMS: Call [phone] SIGNATURE: Stacey Henry RN PATIENT NAME: Naveen Akins DATE: February 01, 2018 TIME: 8:58 AM PAGER: [phone] PROGRESS Observed: 02/01/2018 Status: COMPLETED Source: [place] 8:02 AM CLINIC OTHER CAMPUS REPOSITORY HNO ID: [id number] Author: Vicky Devi MD Service: Nephrology Author [...] 1 Drop BOTH EYES QID PRN Paulo (Assembler For Puller Over Hand) Radu 1 Drop at 01/26/18 1724 heparin [...] Kalee 15 mL at 01/31/180 No current [facility]-ordered outpatient prescriptions on file. Vitals: BP 109/60 [...] MD PROGRESS Observed: 02/01/2018 Status: COMPLETED Source: [place] 6:24 AM CLINIC OTHER CAMPUS REPOSITORY HNO ID: [id number] Author: Dionicio (Edenilson) Rodney Service: Vascular Surgery [...] the family and they are coming to maxillofacial pathology with the fact that he is probably going to be moving from here to a different facility still receiving a high level of care. Vascular Surgery Progress Note SERVICE DATE: 02/01/2018 Vascular AND Thoracic Surgery Service Pager: For questions or concerns Mon-Tue 6a-5p please page [phone]. After 5pm and on Weekends and Holidays, please page [phone] if in ICU or [phone] if on RNF. Subjective SUBJECTIVE: NAEON Diet: [...] 0659 02/01/18 07 - 02/02/18 0659 Shift 2059-3193 6705-7278 0844-6038 24 Hour Total 5780-3816 7434-5338 7769-3804 24 Hour Total I N T A [...] Noted - Ruptured abdominal aortic aneurysm (AAA) ([facility]) 01/12/2018 - TERENCE (acute kidney injury) (HCC) [...] Note: Added automatically from request for surgery [id number] 77 year old male with Ruptured AAA [...] questions or concerns Mon-Fri 6a-5p please page [phone]. After 5pm and on Weekends and Holidays, please page [phone] if in ICU or [phone] if on RNF. CHEST 1 VIEW Observed: 02/01/2018 Status: F Source: [facility] 4:52 AM HEALTH SYSTEM REPOSITORY Performed at [facility] APPROVED BY: Justino Rodriguez MD EXAMINATION: [...] IONIZED CALCIUM Collected: 02/01/2018 Status: F Source: [facility] 4:00 AM HEALTH SYSTEM REPOSITORY TYPE CODE TESTS RESULT OUT OF REFERENCE UNITS RANGE LAB CAION(LOINC 4.43-4.93 mg/dL ) Low Ionized 3.90 Calcium LAB PHCAI(LOINC 7.320-7.420 ) pH High 7.530 LAB CAPH(LOINC) 4.36-4.73 mg/dL Low Ionized 4.17 Ca,PH7.4 Performed By: #### IONCA #### [facility] [address] [place] [address] HEMOGRAM/DIFF Collected: 02/01/2018 Status: F Source: [facility] 4:00 AM HEALTH SYSTEM REPOSITORY TYPE CODE [...] 0.75 LAB MONON(LOIN 0.30-0.82 thou/cmm C) Abs. Luna 0.43 LAB EOSN(LOINC 0.04-0.54 thou/cmm ) Low Abs. Eosin 0.00 LAB BASON(LOIN 0.01-0.08 thou/cmm C) Abs. Baso 0.01 Performed By: #### CBCD1 #### [facility] [address] [place] [address] BASIC PANEL Collected: 02/01/2018 Status: F Source: [facility] 4:00 AM HEALTH SYSTEM REPOSITORY TYPE CODE [...] 17 Performed By: #### P8 #### [facility] [address] [place] [address] MAGNESIUM BLOOD Collected: 02/01/2018 Status: F Source: [facility] 4:00 AM HEALTH SYSTEM REPOSITORY TYPE CODE TESTS RESULT OUT OF REFERENCE UNITS RANGE LAB MAG(LOINC) 1.6-2.6 mg/dL Magnesium Blood 1.9 Performed By: #### MAG #### [place] [address] PHOSPHORUS BLOOD Collected: 02/01/2018 Status: F Source: [facility] 4:00 AM HEALTH SYSTEM REPOSITORY TYPE CODE TESTS RESULT OUT OF REFERENCE UNITS RANGE LAB PHOS(LOINC 2.5-4.9 mg/dL ) Phosphorus Blood 4.6 Performed By: #### PHOS #### [place] [address] MAGNESIUM BLOOD Collected: 01/31/2018 Status: F Source: [facility] 11:50 PM HEALTH SYSTEM REPOSITORY TYPE CODE TESTS RESULT OUT OF REFERENCE UNITS RANGE LAB MAG(LOINC) 1.6-2.6 mg/dL Magnesium Blood 1.9 Performed By: #### MAG #### [place] [address] MAGNESIUM BLOOD Collected: 01/31/2018 Status: F Source: [facility] 6:00 PM HEALTH SYSTEM REPOSITORY TYPE CODE TESTS RESULT OUT OF REFERENCE UNITS RANGE LAB MAG(LOINC) 1.6-2.6 mg/dL Magnesium Blood 1.9 Performed By: #### MAG #### [place] [address] RBC PRODUCTS Collected: 01/31/2018 Status: F Source: [facility] 5:23 PM HEALTH SYSTEM REPOSITORY TYPE CODE TESTS RESULT OUT OF REFERENCE UNITS RANGE LAB UNIT1(LOINC ) Xmatch Unit 1 see below Result Comment: Compatible Performed By: #### RBCPS #### [place] [address] CHEST 1 VIEW Observed: 01/31/2018 Status: F Source: [facility] 4:49 PM HEALTH SYSTEM REPOSITORY Performed at [facility] APPROVED BY: Moy Zelaya MD EXAMINATION: [...] PT ED Observed: 01/31/2018 Status: COMPLETED Source: [place] 4:[address] [facility] REPOSITORY HNO ID: [id number] Author: Paulo TylerRn) MAGALY Fernando Service: PICC Team Author Type: Registered Nurse Type: Patient Education Filed: 01/31/2018 4:43 PM Note Text: PATIENT EDUCATION TOPIC: PROCEDURE / SURGERY: Procedure/Surgery: picc PATIENT NAME: Naveen Akins PATIENT LOCATION: [place] [address]* READINESS TO LEARN COGNITIVE ABILITY: sedated MOTIVATION [...] TO PATIENT: Brochures given to patient: BROCHURE [[id number]] REFERRAL (RECOMMENDATION): None Electronically Signed By: Paulo Fernando RN SEE PATIENT EDUCATION SECTION OF THE EMR PROCEDURE Observed: 01/31/2018 Status: COMPLETED Source: [place] 4:[address] [facility] REPOSITORY HNO ID: [id number] Author: Stacey Garcia) Sladky, RN Service: PICC Team Author Type: Registered Nurse Type: Procedures Filed: 01/31/2018 5:19 PM Note Text: PICC NURSE INSERTION NOTE DATE OF PROCEDURE: January 31, 2018 TIME OF PROCEDURE: 1520 ORDERING PHYSICIAN: DR Paniagua INFORMED CONSENT: Obtained per hospital policy. INDICATION FOR LINE PLACEMENT: Vesicant medication-high risk for extravasation CONDITION OF LINE PLACEMENT: Sterile PRIMARY PROCEDURALIST: Stacey Henry RN CONSTRUCTION CONTROLLER: Demi Fernando RN PRE-PROCEDURE REVIEW ALLERGIES No [...] Henry RN CATHETER PLACEMENT Brand: ARROW Lot: [id number] Number of Lumens: 2 Type of PICC: Power Injectable PICC Lumen Size: 5.5 Spanish Arrow PLACEMENT TECHNIQUE Lidocaine: Yes. Strength: 1% [...] Patient Education Materials: Placed in chart [facility] Central Line Insertion Checklist utilized during this procedure QUESTIONS or PROBLEMS: Call [phone] SIGNATURE: Stacey Henry RN PATIENT NAME: Naveen Akins DATE: January 31, 2018 TIME: 4:30 PM PAGER/CONTACT PHONE: RBC PRODUCTS Collected: 01/31/2018 Status: F Source: [facility] 4:30 PM HEALTH SYSTEM REPOSITORY TYPE CODE TESTS RESULT OUT OF REFERENCE UNITS RANGE LAB UNIT1(LOINC ) Xmatch Unit 1 see below Result Comment: Compatible Performed By: #### RBCPS #### [place] [address] TYPE AND SCREEN Collected: 01/31/2018 Status: F Source: [facility] 4:30 PM HEALTH SYSTEM REPOSITORY TYPE CODE TESTS RESULT OUT OF REFERENCE UNITS RANGE LAB ABO(LOINC) O ABO Group LAB SHIP CONSTRUCTION TEACHER(LOINC ) RH Type Positive LAB ABSCR(LOIN C) Antibody NEGATIVE Screen LAB BBCMT(LOIN C) Comment See Below Result Comment: Screen &/or Xmatch expires in 3 days at 12 midnight. Redraw patient at that time. Performed By: #### T&S #### [place] [address] RBC PRODUCTS Collected: 01/31/2018 Status: F Source: [facility] 4:30 PM HEALTH SYSTEM REPOSITORY TYPE CODE TESTS RESULT OUT OF REFERENCE UNITS RANGE LAB UNIT1(LOINC ) Xmatch Unit 1 see below Result Comment: Compatible Performed By: #### RBCPS #### [place] [address] ALLIED HEALTH Observed: 01/31/2018 Status: COMPLETED Source: [place] 4:07 PM CLINIC OTHER CAMPUS REPOSITORY HNO ID: [id number] Author: Chaplain Serna (Chaplain) Service: Spiritual Care Author Type: Agency Owner Type: Allied Health Filed: 01/31/2018 4:08 PM Note Text: SPIRITUALCARE Spiritual Care Visit- Brief Note Name: Naveen Akins Date: January 31, 2018 Notes: Checked in w/pt's fam; later offered silent prayer outside his door. Pt undergoing a procedure. Dtr arrived outside while I was praying for him. Agency Owner Signature: Chaplain Daphne To contact the Spiritual Care Department: Please call [phone] or Page the On-Call Agency Owner at pager [phone] Thank you for the opportunity to be of service. This is an electronically created document. IF PRINTED, PLEASE DO NOT REMOVE FROM THE CHART OR MODIFY PRINTED COPY. PROGRESS Observed: 01/31/2018 Status: COMPLETED Source: [place] 2:58 PM CLINIC OTHER CAMPUS REPOSITORY O ID: [id number] Author: Lora Soliz Service: Critical Care Author [...] Problem List: Ruptured abdominal aortic aneurysm (AAA) ([facility]) (01/12/2018) DIC (disseminated intravascular coagulation) ([facility]) (01/12/2018) Hemorrhagic shock ([facility]) (01/12/2018) Acute respiratory failure ([facility]) (01/12/2018) Cardiac arrest ([facility]) (01/12/2018) Anoxic encephalopathy ([facility] [facility]) (01/13/2018) AAA (abdominal aortic aneurysm, ruptured) ([facility]) (01/12/2018) Obesity, Class I, BMI 30-34.9 (01/16/2018) TERENCE (acute kidney injury) ([facility]) (01/30/2018) Ileus (HCC) (01/30/2018) Acute liver failure without hepatic coma (01/30/2018) AAA rupture with msof, multiple reops, now fascial closure Persistent hypotension/ shock, low midodrine Severe anoxic enceph POOR OUTLOOK 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 Tpn at 1700kcal /day, ?low TF; reglan noted (EKG qtc 480) will decrease #; prealb 23 3. Cvvhd off; fluid even; remove fluid if off pressors 4. Taper steroids hydrocortisone 25mg 5. merrum 6. Assembler For Puller Over Hand a concern, poor outlook 7. Dc betty [...] No Family Updated No Discussed with Staff Yes,CHILD CARE COOK, Rn , Dr Lorenzo Time spent providing critical care services: 30 minutes excluding billable procedures. SIGNATURE: Lora Soliz MD PATIENT NAME: Naveen Akins DATE: January 31, 2018 TIME: 2:58 PM PROGRESS Observed: 01/31/2018 Status: COMPLETED Source: [facility] 1:24 PM [facility]IN[facility] OTHER CAMPUS REPOSITORY O ID: [id number] Author: Yamel (Rn) MAGALY Young Service: Dialysis [...] MAGNESIUM BLOOD Collected: 01/31/2018 Status: F Source: [facility] 1:00 PM HEALTH SYSTEM REPOSITORY TYPE CODE TESTS RESULT OUT OF REFERENCE UNITS RANGE LAB MAG(LOINC) 1.6-2.6 mg/dL Magnesium Blood 1.8 Performed By: #### MAG #### [facility] [address] [place] [address] NUTRITION Observed: 01/31/2018 Status: COMPLETED Source: [facility] 11:28 AM CLINIC OTHER CAMPUS REPOSITORY HNO ID: [id number] Author: Viry Mosher RD Service: NST-Nutrition Support [...] [address], [place], [facility] Pager: [phone] Increments: 3 PROGRESS Observed: 01/31/2018 Status: COMPLETED Source: [facility] 10:47 AM CLINIC OTHER CAMPUS REPOSITORY O ID: [id number] Author: Paulo Lovelace (Cns) Service: Critical Care [...] 40 minutes excluding procedures. SIGNATURE: Paulo Lovelace APRN.MODEL BUILDER PATIENT NAME: Naveen Akins DATE: January 31, 2018 TIME: 10:47 AM BLOOD GAS ARTERIAL Collected: 01/31/2018 Status: F Source: [facility] 10:35 AM HEALTH SYSTEM REPOSITORY TYPE CODE [...] Excess 1.1 Performed By: #### ABG #### [place] [address] PROGRESS Observed: 01/31/2018 Status: COMPLETED Source: [facility] 6:13 AM CLINIC OTHER CAMPUS REPOSITORY O ID: [id number] Author: Dionicio Stevens Service: Vascular Surgery Author [...] 0659 01/31/18 07 - 02/01/18 0659 Shift 6240-2284 3469-4945 7387-7675 24 Hour Total 5103-1333 4460-1316 8936-4885 24 Hour Total I N T A K E IV 336 185 521 NS 0.9% 42 135 177 Calcium IVPB 282 282 NORepinephrine Volume 12 12 Meropenem (Merrem) 0 50 50 TPN/PPN 498 924 592 0834 TPN 498 108 921 0245 Shift Total 834 147 158 3432 O U T P U T Urine [...] Output (Ultrafiltration) 510 510 Shift Total 860 112 299 6286 Weight (kg) 86.4 86.4 86.4 86.4 86.4 [...] Noted - Ruptured abdominal aortic aneurysm (AAA) ([facility]) 01/12/2018 - TERENCE (acute kidney injury) ([facility]) 01/30/2018 - Ileus ([facility]) 01/30/2018 - Acute liver failure without hepatic coma 01/30/2018 - Obesity, Class I, BMI 30-34.9 01/16/2018 - Anoxic encephalopathy ([facility]) 01/13/2018 - DIC (disseminated intravascular coagulation) ([facility]) 01/12/2018 - Hemorrhagic shock ([facility]) 01/12/2018 - Acute respiratory failure ([facility]) 01/12/2018 - Cardiac arrest ([facility]) 01/12/2018 - AAA (abdominal aortic aneurysm, ruptured) ([facility]) 01/12/2018 Overview Note: Added automatically from request for surgery [id number] 77 year old male with Ruptured AAA [...] 1 VIEW Observed: 01/31/2018 Status: F Source: [facility] 5:56 AM HEALTH SYSTEM REPOSITORY Performed at [facility] APPROVED BY: Skip Hickey MD EXAM [...] BASIC PANEL Collected: 01/31/2018 Status: F Source: [facility] 4:15 AM HEALTH SYSTEM REPOSITORY TYPE [...] 186 Performed By: #### P8 #### [facility] [address] [place], [place] [address] IONIZED CALCIUM Collected: 01/31/2018 Status: F Source: [facility] 4:15 HEALTH SYSTEM REPOSITORY TYPE CODE TESTS RESULT OUT OF REFERENCE UNITS RANGE LAB CAION(LOINC 4.43-4.93 mg/dL ) Low Ionized 4.16 Calcium LAB PHCAI(LOINC 7.320-7.420 ) pH High 7.538 LAB CAPH(LOINC) 4.36-4.73 mg/dL Ionized 4.46 Ca,PH7.4 Performed By: #### IONCA #### [facility] [address] [place] [id number] HEMOGRAM/DIFF Collected: 01/31/2018 Status: F Source: [facility] 4:15 HEALTH SYSTEM REPOSITORY TYPE CODE TESTS [...] 0.68 LAB MONON(LOIN 0.30-0.82 thou/cmm C) Abs. Luna 0.54 LAB EOSN(LOINC 0.04-0.54 thou/cmm ) Low Abs. Eosin 0.00 LAB BASON(LOIN 0.01-0.08 thou/cmm C) Abs. Baso 0.01 Result Comment: Smear scanned; tech agrees with automated differential Performed By: #### CBCD1 #### [place] [address] MAGNESIUM BLOOD Collected: 01/31/2018 Status: F Source: [facility] 4:15 AM HEALTH SYSTEM REPOSITORY TYPE CODE TESTS RESULT OUT OF REFERENCE UNITS RANGE LAB MAG(LOINC) 1.6-2.6 mg/dL Magnesium Blood 2.3 Performed By: #### MAG #### [place] [address] PHOSPHORUS BLOOD Collected: 01/31/2018 Status: F Source: [facility] 4:15 AM HEALTH SYSTEM REPOSITORY TYPE CODE TESTS RESULT OUT OF REFERENCE UNITS RANGE LAB PHOS(LOINC 2.5-4.9 mg/dL ) Phosphorus Blood 4.3 Performed By: #### PHOS #### [place] [address] OPERATIVE NO Observed: 01/31/2018 Status: COMPLETED Source: [facility] 12:00 AM CLINIC OTHER CAMPUS REPOSITORY HNO ID: [id number] Author: Simi Cox Service: Vascular Surgery Author Type: Physician Type: Operative Report Filed: 02/01/2018 8:42 AM Note Text: [facility] - Operative Report SURGEON: Simi Cox MD, FACS PATIENT NAME: NAVEEN AKINS CSN: [id number] DATE OF SURGERY: 01/27/2018 DATE OF : 1940 SEX/AGE: M/77 PATIENT TYPE: I HOSP SVC: LICO LOCATION: [id number] DATE OF SURGERY: 01/27/2018 SURGEON: Simi Cox MD, FACS PREOPERATIVE DIAGNOSIS: Respiratory failure, status post abdominal aortic aneurysm repair. POSTOPERATIVE DIAGNOSIS: Respiratory failure, status post abdominal aortic aneurysm repair. TITLE OF THE OPERATION: Insertion of tracheostomy, 8-Spanish. CONSTRUCTION CONTROLLER: Ashu Menezes M.D. and Hailey Dixon SA HISTORY: This is a 77-year-old man who underwent repair of ruptured abdominal aortic aneurysm. This is a patient, who was transferred to [facility] and was in the process of having [...] withdraw the endotracheal tube. Initially, the 8- Spanish Shiley did not easily go, so we transitioned over a stylet to the percutaneous type trach with a dilator and used the 8-Spanish dilator to gain access of the new [...] Simi Cox MD, FACS Cardiothoracic Surgery RGN:modl /[id number] ALLIED HEALTH Observed: 01/30/2018 Status: COMPLETED Source: [facility] 8:37 PM [facility] REPOSITORY HNO ID: [id number] Author: Chaplain Perales (Chaplain) Service: Spiritual Care Author Type: Agency Owner Type: Allied Health Filed: 01/30/2018 11:14 PM Note Text: SPIRITUALCARE Spiritual Care Visit- Brief Note Name: Naveen Akins Date: January 30, 2018 Notes: Met fam in 3rd wtg and they spoke of pts illness. Later I met them in pts room and we prayed. Fam looking for a miracle. I made S/C available to them again.They thanked me for coming. Agency Owner Signature: Chaplain Diaz To contact the Spiritual Care Department: Please call [phone] or Page the On-Call Agency Owner at pager [phone] Thank you for the opportunity to be of service. This is an electronically created document. IF PRINTED, PLEASE DO NOT REMOVE FROM THE CHART OR MODIFY PRINTED COPY. NURSING PROG Observed: 01/30/2018 Status: COMPLETED Source: [facility] 3:17 PM [facility] REPOSITORY HNO ID: [id number] Author: Tita TylerRnLisette Marquis RN Service: Nursing Author Type: Registered Nurse Type: Nursing Progress Note Filed: 01/30/2018 3:18 PM Note Text: Blood returned and CRRT ended per Dr Lorenzo order. Plan to HD tomorrow PROGRESS Observed: 01/30/2018 Status: COMPLETED Source: [facility] 2:18 PM [facility] REPOSITORY HNO ID: [id number] Author: Shen Lorenzo Service: Nephrology Author Type: [...] mL (DIOCTO,COLACE) 100 mg OROGASTRIC BID Dorcas Mkie Decoy 100 mg at 01/30/18 0812 senna leaf extract 176 mg/5 mL 528 mg 15 mL OROGASTRIC BID Dionicio (Res) Stevens 528 mg at 01/30/18 0812 carboxymethylcellulose sodium 1-2 Drop (CELLUVISC) 1-2 Drop BOTH EYES PRN Venkat Paniagua 2 Drop at 01/26/18 1625 polyvinyl alcohol-povidone 1.4-0.6 % 1 Drop (REFRESH) 1 Drop BOTH EYES QID PRN Paulo (Assembler For Puller Over Hand) Hudock 1 Drop at 01/26/18 1724 heparin [...] 15 mL at 01/30/18 0812 No current [facility]-ordered outpatient prescriptions on file. Vitals: BP 108/53 [...] in progress. Eventual MRI. ? d/w Dr. Pnaiagua Please do not hesitate to contact me at [phone] if there is any question or concern. Rosanna Talbert MD (Shen Lorenzo) CASE MANAGEM Observed: 01/30/2018 Status: COMPLETED Source: [facility] 12:59 PM CLINIC OTHER CAMPUS REPOSITORY O ID: [id number] Author: Lorrie (Rn) MAGALY Bo Service: (none) [...] 30, 2018 TIME: 1:00 PM PAGER/CONTACT #: [phone] EKG (AK,AV,EU,FV,HL,CYNTHIA,MM,SP) Observed: Status: F Source: [facility] 01/30/2018 12:42 CLINIC OTHER PM CAMPUS REPOSITORY NAME : NAVEEN AKINS PID : [id number] : 1940 Gender : Male Race : ORD : [id number] Procedure Date : Jan 30 2018 12:42 [...] ms QTC Calculation(Bezet) : 474 ms P [place] : 26 degrees R [place] : 9 degrees T [place] : 19 degrees Test Reason : Arrhythmia Location : 3 : [facility] 3233 Overread By : MD Pardo Vinayak A. Editted By : MD Pardo Vinayak A. Referred By : LORA SOLIZ Acquired by : Shira GARZA NUTRITION Observed: 01/30/2018 Status: COMPLETED Source: [facility] 12:02 PM CLINIC OTHER CAMPUS REPOSITORY HNO ID: [id number] Author: Viry Mosher RD Service: NST-Nutrition Support [...] interval not displayed. Viry Mosher RD, LD, [facility] Pager: [phone] Increments: 3 PROGRESS Observed: 01/30/2018 Status: COMPLETED Source: [facility] 11:45 AM CLINIC OTHER CAMPUS REPOSITORY O ID: [id number] Author: Lora Soliz Service: Critical Care Author [...] Problem List: Ruptured abdominal aortic aneurysm (AAA) ([facility]) (01/12/2018) DIC (disseminated intravascular coagulation) ([facility]) (01/12/2018) Hemorrhagic shock ([facility]) (01/12/2018) Acute respiratory failure ([facility]) (01/12/2018) Cardiac arrest ([facility]) (01/12/2018) Hypernatremia (01/12/2018) Hypokalemia (01/12/2018) Hypomagnesemia (01/12/2018) Hypophosphatemia (01/12/2018) Hyperchloremia (01/12/2018) Anoxic encephalopathy (HCC) (01/13/2018) AAA (abdominal aortic aneurysm, ruptured) ([facility]) (01/12/2018) Obesity, Class I, BMI 30-34.9 (01/16/2018) AAA rupture with msof, multiple reops, now fascial closure Improving shock Severe anoxic enceph TERENCE on TREASURY ASSOCIATE, controlled azotemia Recovered thrombocytopenia Vent dep resp [...] but 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 Tpn at 1700kcal /day, ?low TF; reglan noted (EKG qtc 480) will decrease # 3. Cvvhd; fluid even; remove fluid if off pressors 4. Taper steroids hydrocortisone 25mg 5. merrum 6. Assembler For Puller Over Hand a concern, poor outlook 7. Dc betty [...] Updated No Discussed with Staff Yes, RN, radiology teacher, pharm D Time spent providing critical care services: 40 minutes excluding billable procedures. SIGNATURE: Lora Soliz MD PATIENT NAME: Naveen Akins DATE: January 30, 2018 TIME: 2:24 pm RENAL PANEL Collected: 01/30/2018 Status: F Source: [facility] 11:00 AM HEALTH SYSTEM REPOSITORY TYPE CODE [...] 1.0 Performed By: #### RENAL #### [facility] [address] [place] [address] MAGNESIUM BLOOD Collected: 01/30/2018 Status: F Source: [facility] 11:00 AM HEALTH SYSTEM REPOSITORY TYPE CODE TESTS RESULT OUT OF REFERENCE UNITS RANGE LAB MAG(LOINC) 1.6-2.6 mg/dL Magnesium Blood 2.3 Performed By: #### MAG #### [facility] [address] [place] [id number] PROGRESS Observed: 01/30/2018 Status: COMPLETED Source: [facility] 9:42 AM [facility] REPOSITORY HNO ID: [id number] Author: Keely TylerRn) MAGALY Young Service: Wound/Ostomy Author Type: Registered Nurse Type: Progress Notes Filed: 01/30/2018 9:45 AM Note Text: WOUND CARE NURSE PROGRESS NOTE SERVICE DATE: 01/30/2018 SERVICE TIME: 839 REASON FOR VISIT: Surgical wound TIME SPENT (minutes): 45 ? Patient seen today rounding radiology teacher. Wound vac dressing to midline abdomen changed. Applied 3 white, 1 black, 150mmHg, continuous. Wound bed clean. Retention sutures intact. Plan to change wound vac dressing Tuesday02/01/18. ? Documentation from Wound Expert can be found in scanned documents. ? SIGNATURE: Keely Young RN PATIENT NAME: Naveen Akins DATE: January 30, 2018 TIME: 9:42 AM CONTACT#: [id number] PROGRESS Observed: 01/30/2018 Status: COMPLETED Source: [facility] 6:31 AM [facility] REPOSITORY HNO ID: [id number] Author: Dionicio Stevens Service: Vascular Surgery Author [...] questions or concerns Mon-Tue 6a-5p please page [phone]. After 5pm and on Weekends and Holidays, please page [phone] if in ICU or [phone] if on RNF. Subjective SUBJECTIVE: NAEON, Ileus [...] Date 01/29/18699 - 01/30/1865801/30/18699 - 01/31/1859 Shift 8506-5558 1928-2546 5390-6721 24 Hour Total 7393-5485 0198-4483 7620-2839 24 Hour Total I N T A [...] Assessment Gastrostomy) 0 0 Shift Total 793.5 866 362 7354.5 O U T P U T Urine 0 0 0 Void (ml) 0 0 0 Urine Incontinence/Not Saved 1 x 1 x 2 x 4 x Tubes 620 465 263 1786 Drain/Tube Output (Drain/Tube 01/19/18 1015 Midline Abdomen) 15 0 0 15 Drain/Tube Output (Drain/Tube 01/29/18 1909 Assessment Fecal Management System Rectum) 0 0 0 Output (GI Feed/Drain 01/27/18 Assessment Gastrostomy) 605 646 648 8700 Dialysis 500 336 137 973 Dialysis Output (Ultrafiltration) 500 336 137 973 Shift Total 1120 581 449 4843 Weight (kg) 82 82 82 82 82 [...] Noted - Ruptured abdominal aortic aneurysm (AAA) ([facility]) 01/12/2018 - Obesity, Class I, BMI 30-34.9 01/16/2018 - Anoxic encephalopathy ([facility]) 01/13/2018 - DIC (disseminated intravascular coagulation) ([facility]) 01/12/2018 - Hemorrhagic shock ([facility]) 01/12/2018 - Acute respiratory failure ([facility]) 01/12/2018 - Cardiac arrest ([facility]) 01/12/2018 - Hypernatremia 01/12/2018 - Hypokalemia 01/12/2018 - Hypomagnesemia 01/12/2018 - Hypophosphatemia 01/12/2018 - Hyperchloremia 01/12/2018 - AAA (abdominal aortic aneurysm, ruptured) ([facility]) 01/12/2018 Overview Note: Added automatically from request for surgery [id number] 77 year old male with Ruptured AAA [...] questions or concerns Mon-Fri 6a-5p please page [phone]. After 5pm and on Weekends and Holidays, please page [phone] if in ICU or [phone] if on RNF. IONIZED CALCIUM Collected: 01/30/2018 Status: F Source: [facility] 5:55 AM HEALTH SYSTEM REPOSITORY TYPE CODE TESTS RESULT OUT OF REFERENCE UNITS RANGE LAB CAION(LOINC 4.43-4.93 mg/dL ) Low Ionized 3.95 Calcium LAB PHCAI(LOINC 7.320-7.420 ) pH High 7.546 LAB CAPH(LOINC) 4.36-4.73 mg/dL Low Ionized 4.26 Ca,PH7.4 Performed By: #### IONCA #### [facility] [address] [place] [address] HEMOGRAM/DIFF Collected: 01/30/2018 Status: F Source: [facility] 5:55 AM HEALTH SYSTEM REPOSITORY TYPE CODE [...] 0.65 LAB MONON(LOIN 0.30-0.82 thou/cmm C) Abs. Luna 0.69 LAB EOSN(LOINC 0.04-0.54 thou/cmm ) Low Abs. Eosin 0.01 LAB BASON(LOIN 0.01-0.08 thou/cmm C) Abs. Baso 0.01 Result Comment: Smear scanned; tech agrees with automated differential Performed By: #### CBCD1 #### [place] [address] RENAL PANEL Collected: 01/30/2018 Status: F Source: [facility] 5:55 AM HEALTH SYSTEM REPOSITORY TYPE CODE [...] Blood 1.0 Performed By: #### RENAL #### [place] [address] MAGNESIUM BLOOD Collected: 01/30/2018 Status: F Source: [facility] 5:55 AM HEALTH SYSTEM REPOSITORY TYPE CODE TESTS RESULT OUT OF REFERENCE UNITS RANGE LAB MAG(LOINC) 1.6-2.6 mg/dL Magnesium Blood 2.3 Performed By: #### MAG #### [facility] [address] [place] [address] HEPATIC PANEL Collected: 01/30/2018 Status: F Source: [facility] 5:55 AM HEALTH SYSTEM REPOSITORY TYPE CODE [...] 5.15 Performed By: #### HEPAP #### [facility] [address] [place] [address] CHEST 1 VIEW Observed: 01/30/2018 Status: F Source: [facility] 5:25 AM HEALTH SYSTEM REPOSITORY Performed at [facility] APPROVED BY: Yajaira Veronica MD EXAM TITLE: CHEST 1 VIEW DATE: 01/30/2018 05:21 INDICATION: Dyspnea COMPARISON: 01/29/2018 FINDINGS: Tracheostomy tube and right central venous catheter are stable. There is no visible pneumothorax. Lungs are clear of focal consolidation. The heart is nonenlarged. IMPRESSION: Stable appearance PROGRESS Observed: 01/30/2018 Status: COMPLETED Source: [facility] 5:02 AM [facility] REPOSITORY HNO ID: [id number] Author: Roxane TylerRn) Mervin RN Service: Dialysis Author Type: Registered Nurse Type: Progress Notes Filed: 01/30/2018 5:04 AM Note Text: CRRT restarted without problem after rising TMP. Hemosafe device on x 2 with lines reversed. Report given to MAGALY Anaya. Pt stable NURSING PROG Observed: 01/30/2018 Status: COMPLETED Source: [facility] 3:[address] [facility] OTHER [place] REPOSITORY HNO ID: [id number] Author: Trish TylerRn) MAGALY Plasencia Service: (none) Author Type: Registered Nurse Type: Nursing Progress Note Filed: 01/30/2018 3:55 AM Note Text: 0345 pt clotted off dialysis filter, dialysis nurse called at this time to change set up RENAL PANEL Collected: 01/29/2018 Status: F Source: [facility] 11:57 HEALTH SYSTEM REPOSITORY TYPE CODE TESTS [...] Blood 3.0 Performed By: #### RENAL #### [place] [address] MAGNESIUM BLOOD Collected: 01/29/2018 Status: F Source: [facility] 11:57 [facility] REPOSITORY TYPE CODE TESTS RESULT OUT OF REFERENCE UNITS RANGE LAB MAG(LOINC) 1.6-2.6 mg/dL Magnesium Blood 2.2 Performed By: #### MAG #### [place] [address] TRIGLYCERIDE BLOOD Collected: 01/29/2018 Status: F Source: [facility] 11:57 HEALTH SYSTEM REPOSITORY TYPE CODE TESTS RESULT OUT OF REFERENCE UNITS RANGE LAB TRIG(LOINC 0-149 mg/dL ) Triglyceride High Blood 432 Result Comment: < 200 Desirable Result invalid if not a fasting specimen. Performed By: #### TRIG #### [place] [address] ALLIED HEALTH Observed: 01/29/2018 Status: COMPLETED Source: [facility] 7:15 PM CLINIC OTHER CAMPUS REPOSITORY HNO ID: [id number] Author: Chaplain Will (Chaplain) Service: Spiritual Care Author Type: Agency Owner Type: Allied Health Filed: 01/29/2018 7:46 PM Note Text: SPIRITUALCARE Spiritual Care Visit- Brief Note Name: Naveen Akins Date: January 29, 2018 Notes: Agency Owner connected with family in waiting room. Daughter Ruth gave me the update on patient. Prayed for the patient in his room. Agency Owner Signature: Chaplain Suman To contact the Spiritual Care Department: Please call [phone] or Page the On-Call Agency Owner at pager [phone] Thank you for the opportunity to be of service. This is an electronically created document. IF PRINTED, PLEASE DO NOT REMOVE FROM THE CHART OR MODIFY PRINTED COPY. HGB Collected: 01/29/2018 Status: F Source: [facility] 5:40 PM HEALTH SYSTEM REPOSITORY TYPE CODE TESTS RESULT OUT OF RANGE REFERENCE UNITS LAB HGBI(LOINC) 13.7-17.5 g/dL Low Hgb 7.9 Performed By: #### HGBI #### [place] [address] HCT Collected: 01/29/2018 Status: F Source: [facility] 5:40 PM HEALTH SYSTEM REPOSITORY TYPE CODE TESTS RESULT OUT OF RANGE REFERENCE UNITS LAB HCTI(LOINC) 40.1-51.0 % Low Hct 24.6 Performed By: #### HCTI #### [place] [address] RENAL PANEL Collected: 01/29/2018 Status: F Source: [facility] 5:40 PM HEALTH SYSTEM REPOSITORY TYPE CODE [...] 1.0 Performed By: #### RENAL #### [facility] [address] [place] [address] MAGNESIUM BLOOD Collected: 01/29/2018 Status: F Source: [facility] 5:40 PM HEALTH SYSTEM REPOSITORY TYPE CODE TESTS RESULT OUT OF REFERENCE UNITS RANGE LAB MAG(LOINC) 1.6-2.6 mg/dL Magnesium Blood 2.3 Performed By: #### MAG #### [facility] [address] [place] [address] ALLIED HEALTH Observed: 01/29/2018 Status: COMPLETED Source: [facility] 2:[address] [facility] OTHER [facility] REPOSITORY HNO ID: [id number] Author: Chaplain Alfredo (Chaplain) Service: Spiritual Care Author Type: Agency Owner Type: Allied Health Filed: 01/29/2018 3:01 PM Note Text: SPIRITUALCARE Spiritual Care Visit- Brief Note Name: Naveen Akins Date: January 29, 2018 Notes: Patient's family stopped Agency Owner in the hallway and requested prayer for patient. Upon arrival patient was alone and nonverbal. Agency Owner read scriptures and prayed at beside for patient. Agency Owner Signature: Chaplain Juni To contact the Spiritual Care Department: Please call [phone] or Page the On-Call Agency Owner at pager [phone] Thank you for the opportunity to be of service. This is an electronically created document. IF PRINTED, PLEASE DO NOT REMOVE FROM THE CHART OR MODIFY PRINTED COPY. PROGRESS Observed: 01/29/2018 Status: COMPLETED Source: [facility] 2:26 PM [facility] REPOSITORY HNO ID: [id number] Author: Adriane Carvalho Service: Critical Care Author [...] -- 01/12/18 0630 vte pharmacologic prophylaxis contraindicated (ga,ma) 01/12/18 0630 pneumatic compression stockings [facility] ST[facility]FF PHYSICIAN NOTE OF PERSONAL INVOLVEMENT IN CARE Patient/Family Updated: family has been updated regarding the goals of care, medical plan for the day, consultant education recommendations, medical disposition and current medical condition/prognosis [...] 29, 2018 TIME: 2:26 PM PAGER/CONTACT #: [phone] PROGRESS Observed: 01/29/2018 Status: COMPLETED Source: [facility] 1:[address] [facility] OTHER CAMPUS REPOSITORY O ID: [id number] Author: Paulo Lovelace (Cns) Service: Critical Care [...] fluid which appeared to be dark blood-surgical training specialist notified-stat Hgb is 8 GM-recheck at 6pm [...] 40 minutes excluding procedures. SIGNATURE: Paulo Lovelace APRN.MODEL BUILDER PATIENT NAME: Naveen Akins DATE: January 29, 2018 TIME: 1:55 PM HEMOGRAM/DIFF Collected: 01/29/2018 Status: F Source: [facility] 1:15 PM HEALTH SYSTEM REPOSITORY TYPE [...] 0.76 LAB MONON(LOIN 0.30-0.82 thou/cmm C) Abs. Luna 0.70 LAB EOSN(LOINC 0.04-0.54 thou/cmm ) Low Abs. Eosin 0.01 LAB BASON(LOIN 0.01-0.08 thou/cmm C) Abs. Baso 0.03 Result Comment: Smear scanned; tech agrees with automated differential Performed By: #### CBCD1 #### [facility] [address] [place] [address] PROGRESS Observed: 01/29/2018 Status: COMPLETED Source: [facility] 12:10 PM [facility] OTHER CAMPUS REPOSITORY HNO ID: [id number] Author: Dorcas Palafox Service: Critical Care Author [...] Gallstone Pancreatitis Ruptured Abdominal Aortic Aneurysm (Aaa) ([facility]) Dic (Disseminated Intravascular Coagulation) ([facility]) Hemorrhagic Shock ([facility]) Acute Respiratory Failure (Hcc) Cardiac Arrest ([facility]) Hypernatremia Hypokalemia Hypomagnesemia Hypophosphatemia Hyperchloremia Anoxic Encephalopathy ([facility]) Aaa (Abdominal Aortic Aneurysm, Ruptured) ([facility]) Obesity, Class I, Bmi 30-34.9 1. [...] 29, 2018 TIME: 12:10 PM PAGER/CONTACT #: [phone] RENAL PANEL Collected: 01/29/2018 Status: F Source: [facility] 11:40 AM HEALTH SYSTEM REPOSITORY TYPE CODE [...] 4.2 Performed By: #### RENAL #### [facility] [address] [place], [place] [address] MAGNESIUM BLOOD Collected: 01/29/2018 Status: F Source: [facility] 11:40 AM HEALTH SYSTEM REPOSITORY TYPE CODE TESTS RESULT OUT OF REFERENCE UNITS RANGE LAB MAG(LOINC) 1.6-2.6 mg/dL Magnesium Blood 2.4 Performed By: #### MAG #### [facility] [address] [place] [address] PROGRESS Observed: 01/29/2018 Status: COMPLETED Source: [facility] 9:32 AM CLINIC OTHER CAMPUS REPOSITORY O ID: [id number] Author: Shen Lorenzo Service: Nephrology Author Type: [...] 1 Drop BOTH EYES QID PRN Paulo (Assembler For Puller Over Hand) Radu 1 Drop at 01/26/18 1724 heparin [...] 15 mL at 01/29/18 0846 No current [facility]-ordered outpatient prescriptions on file. Vitals: BP (!) [...] do not hesitate to contact me at [phone] if there is any question or concern. Rosanna Talbert MD (Shen Lorenzo) ABDOMEN 1 VIEW Observed: 01/29/2018 Status: F Source: [facility] 9:09 AM HEALTH SYSTEM REPOSITORY Performed at [facility] APPROVED BY: IGLBERT NAVARRO MD ABDOMEN, 1 VIEW. CLINICAL INFORMATION: Nausea and vomiting TECHNIQUE: Supine abdomen, 1 image(s) COMPARISON: 01/21/2018 RESULT: G-tube in the LEFT upper quadrant. Right femoral catheter in place. Multiple paraspinal surgical clips. Bowel loops are normal caliber. Degenerative changes in the spine. No pathologic calcifications. IMPRESSION: NO ACUTE ABNORMALITY PROGRESS Observed: 01/29/2018 Status: COMPLETED Source: [facility] 9:[address] [facility] OTHER CAMPUS REPOSITORY HNO ID: [id number] Author: Braxton Sloan MD Service: Vascular Surgery [...] 01/28/18699 - 01/29/1865801/29/18699 - 01/30/18 0659 Shift 3177-6956 6706-1093 4724-1492 24 Hour Total 8238-3737 1299-0984 2536-9384 24 Hour Total I N T A [...] BMs 3 x 3 x Dialysis 684 116 563 4319 49 49 Dialysis Output (Ultrafiltration) 684 784 592 0442 49 49 Shift Total 684 157 136 6542 49 49 Weight (kg) 82 82 82 [...] Noted - Ruptured abdominal aortic aneurysm (AAA) ([facility]) 01/12/2018 - Obesity, Class I, BMI 30-34.9 01/16/2018 - Anoxic encephalopathy ([facility]) 01/13/2018 Assessment AND Plan Note: S/p AAA repair and cardiac arrest ., anoxic encephalopathy Lack of I improvement Is concerning suspect he may have suffered anoxic encephalopathy exam is limited. Need to continue supportive care Likely he may need dependant care MRI brain will Help to add further prognostic value - DIC (disseminated intravascular coagulation) ([facility]) 01/12/2018 - Hemorrhagic shock ([facility]) 01/12/2018 - Acute respiratory failure ([facility]) 01/12/2018 - Cardiac arrest ([facility]) 01/12/2018 - Hypernatremia 01/12/2018 - Hypokalemia 01/12/2018 - Hypomagnesemia 01/12/2018 - Hypophosphatemia 01/12/2018 - Hyperchloremia 01/12/2018 - AAA (abdominal aortic aneurysm, ruptured) ([facility]) 01/12/2018 Overview Note: Added automatically from request for surgery [id number] 77 year old male with Ruptured AAA [...] January 29, 2018 TIME: 9:06 AM Pager: [phone] HEMOGRAM/DIFF Collected: 01/29/2018 Status: F Source: [facility] 6:45 AM HEALTH SYSTEM REPOSITORY TYPE CODE [...] 0.76 LAB MONON(LOIN 0.30-0.82 thou/cmm C) Abs. Luna 0.61 LAB EOSN(LOINC 0.04-0.54 thou/cmm ) Low Abs. Eosin 0.02 LAB BASON(LOIN 0.01-0.08 thou/cmm C) Abs. Baso 0.01 Result Comment: Smear scanned; tech agrees with automated differential Performed By: #### CBCD1 #### [address] [address] IONIZED CALCIUM Collected: 01/29/2018 Status: F Source: [facility] 6:45 AM HEALTH SYSTEM REPOSITORY TYPE CODE TESTS RESULT OUT OF REFERENCE UNITS RANGE LAB CAION(LOINC 4.43-4.93 mg/dL ) Low Ionized 3.96 Calcium LAB PHCAI(LOINC 7.320-7.420 ) pH High 7.519 LAB CAPH(LOINC) 4.36-4.73 mg/dL Low Ionized 4.21 Ca,PH7.4 Performed By: #### IONCA #### [address] [address] RENAL PANEL Collected: 01/29/2018 Status: F Source: [facility] 6:45 AM HEALTH SYSTEM REPOSITORY TYPE CODE [...] Blood 1.0 Performed By: #### RENAL #### [place] [address] MAGNESIUM BLOOD Collected: 01/29/2018 Status: F Source: [facility] 6:45 AM HEALTH SYSTEM REPOSITORY TYPE CODE TESTS RESULT OUT OF REFERENCE UNITS RANGE LAB MAG(LOINC) 1.6-2.6 mg/dL Magnesium Blood 2.4 Performed By: #### MAG #### [place] [address] PHOSPHORUS BLOOD Collected: 01/29/2018 Status: F Source: [facility] 6:45 AM HEALTH SYSTEM REPOSITORY TYPE CODE TESTS RESULT OUT OF REFERENCE UNITS RANGE LAB PHOS(LOINC 2.5-4.9 mg/dL ) Phosphorus Blood 3.6 Performed By: #### PHOS #### [place] [address] CHEST 1 VIEW Observed: 01/29/2018 Status: F Source: [facility] 6:16 AM HEALTH SYSTEM REPOSITORY Performed at [facility] APPROVED BY: Bernardino Lewis MD EXAM [...] NURSING PROG Observed: 01/29/2018 Status: COMPLETED Source: [facility] 1:[address] [facility] OTHER CAMP[facility] REPOSITORY HNO ID: [id number] Author: Kannan (Rn) MAGALY Montoya Service: Nursing Author Type: Registered Nurse Type: Nursing Progress Note Filed: 01/29/2018 1:38 AM Note Text: Dr. Katia Sesay spoken to regarding patient having emesis, larger gastric residual. Noted that Tube feed has been off since initial assessment at 19:30. Peg tube clamped per Dr. Sesay's direction. RENAL PANEL Collected: 01/29/2018 Status: F Source: [facility] 12:54 AM HEALTH SYSTEM REPOSITORY TYPE CODE [...] RECHECKED Performed By: #### RENAL #### [facility] [address] [place] [address] MAGNESIUM BLOOD Collected: 01/29/2018 Status: F Source: [facility] 12:54 AM HEALTH SYSTEM REPOSITORY TYPE CODE TESTS RESULT OUT OF REFERENCE UNITS RANGE LAB MAG(LOINC) 1.6-2.6 mg/dL Magnesium Blood 2.4 Performed By: #### MAG #### [facility] [address] [place] [address] RENAL PANEL Collected: 01/28/2018 Status: F Source: [facility] 6:20 PM HEALTH SYSTEM REPOSITORY TYPE CODE [...] 1.0 Performed By: #### RENAL #### [facility] [address] [place] [address] MAGNESIUM BLOOD Collected: 01/28/2018 Status: F Source: [facility] 6:20 PM HEALTH SYSTEM REPOSITORY TYPE CODE TESTS RESULT OUT OF REFERENCE UNITS RANGE LAB MAG(LOINC) 1.6-2.6 mg/dL Magnesium Blood 2.3 Performed By: #### MAG #### [facility] [address] [place] [address] NURSING PROG Observed: 01/28/2018 Status: COMPLETED Source: [facility] 6:04 PM [facility] REPOSITORY HNO ID: [id number] Author: Araceli TylerRn) MAGALY Elam Service: Dialysis [...] GAS ARTERIAL Collected: 01/28/2018 Status: F Source: [facility] 1:05 PM HEALTH SYSTEM REPOSITORY TYPE CODE [...] FIO2 40 Performed By: #### ABG #### [place] [address] CASE MANAGEM Observed: 01/28/2018 Status: COMPLETED Source: [facility] 1:04 PM [facility] REPOSITORY HNO ID: [id number] Author: Alvina TylerRn) MAGALY Noonan Service: Care [...] 28, 2018 TIME: 1:04 PM PAGER/CONTACT #: [phone] RENAL PANEL Collected: 01/28/2018 Status: F Source: [facility] 12:50 PM HEALTH SYSTEM REPOSITORY TYPE CODE [...] Blood 1.0 Performed By: #### RENAL #### [place] [address] MAGNESIUM BLOOD Collected: 01/28/2018 Status: F Source: [facility] 12:50 PM [facility] REPOSITORY TYPE CODE TESTS RESULT OUT OF REFERENCE UNITS RANGE LAB MAG(LOINC) 1.6-2.6 mg/dL Magnesium Blood 2.3 Performed By: #### MAG #### [place] [address] PROGRESS Observed: 01/28/2018 Status: COMPLETED Source: [facility] 11:54 AM CLINIC OTHER CAMPUS REPOSITORY O ID: [id number] Author: Dorcas Palafox Service: Critical Care Author [...] 28, 2018 TIME: 11:54 AM PAGER/CONTACT #: [phone] PROGRESS Observed: 01/28/2018 Status: COMPLETED Source: [facility] 10:[address] [facility] REPOSITORY O ID: [id number] Author: Adriane Carvalho Service: Critical Care Author Type: Physician Type: Progress Notes Filed: 01/28/2018 10:41 AM Note Text: Naveen Akins [id number] NEURO ICU - CONSULT PROGRESS NOTE SERVICE [...] -- 01/12/18 0630 vte pharmacologic prophylaxis contraindicated (ga,oh) 01/12/18 0630 pneumatic compression stockings (ga,ma) VTE Prophylaxis: VTE prophylaxis appropriate Assessment/Plan Neurology Anoxic encephalopathy (HCC) S/p AAA repair and cardiac arrest ., anoxic encephalopathy Lack of I improvement Is concerning suspect he may have suffered anoxic encephalopathy exam is limited. Need to continue supportive care Likely he may need dependant care MRI brain will Help to add further prognostic value [facility] STAFF PHYSICIAN NOTE OF PERSONAL [...] 28, 2018 TIME: 10:34 AM PAGER/CONTACT #: [phone] PROGRESS Observed: 01/28/2018 Status: COMPLETED Source: [facility] 10:32 AM [facility] REPOSITORY O ID: [id number] Author: Shen Lorenzo Service: Nephrology Author Type: Physician Type: Progress Notes Filed: 01/28/2018 10:44 AM Note Text: Nephrology Progress Note Following for TERENCE. Pt is trached. Remains on ventilator. Cannot do ROS. Current Inpatient Medications: Current Facility-Administered Medications Ordered in [facility]: Parenteral Nutrition - Adult INTRAVENOUS ONCE TPN [...] 1 Drop BOTH EYES QID PRN Paulo (Assembler For Puller Over Hand) Radu 1 Drop at 01/26/18 1724 heparin [...] water 50 ml 2 g INTRAVENOUS PRN Emilei (Res) Cardella Last Rate: 25 mL/hr at [...] do not hesitate to contact me at [phone] if there is any question or concern. Rosanna Talbert MD (Shen Lorenzo) PROGRESS Observed: 01/28/2018 Status: COMPLETED Source: [facility] 9:14 AM CLINIC OTHER CAMPUS REPOSITORY HNO ID: [id number] Author: Kannan (Edenilson) Emerita Service: General Surgery [...] 0659 01/28/18 0700 - 01/29/18 0659 Shift 3606-6949 1614-4540 1355-7175 24 Hour Total 8705-8343 9612-7688 8570-6841 24 Hour Total I N T A [...] 140 882 102 102 Shift Total 215 4894 191 8963 102 102 Weight (kg) 82.2 82.2 82 [...] Noted - Ruptured abdominal aortic aneurysm (AAA) ([facility]) 01/12/2018 - Obesity, Class I, BMI 30-34.9 01/16/2018 - Encephalopathy 01/13/2018 - DIC (disseminated intravascular coagulation) ([facility]) 01/12/2018 - Hemorrhagic shock ([facility]) 01/12/2018 - Acute respiratory failure ([facility]) 01/12/2018 - Cardiac arrest ([facility]) 01/12/2018 - Hypernatremia 01/12/2018 - Hypokalemia 01/12/2018 - Hypomagnesemia 01/12/2018 - Hypophosphatemia 01/12/2018 - Hyperchloremia 01/12/2018 - AAA (abdominal aortic aneurysm, ruptured) ([facility]) 01/12/2018 Overview Note: Added automatically from request for surgery [id number] Assessment/Plan 77 year old male with Ruptured [...] January 28, 2018 TIME: 9:14 AM PAGER: [phone] PROGRESS Observed: 01/28/2018 Status: COMPLETED Source: [facility] 8:[address] [facility] REPOSITORY O ID: [id number] Author: Braxton Sloan MD Service: Vascular Surgery [...] 0659 01/28/18 07 - 01/29/18 0659 Shift 4782-5534 4546-1967 7839-7506 24 Hour Total 2278-7642 3903-6301 6530-1144 24 Hour Total I N T A [...] 140 882 102 102 Shift Total 215 5005 147 0462 102 102 Weight (kg) 82.2 82.2 82 [...] Noted - Ruptured abdominal aortic aneurysm (AAA) ([facility]) 01/12/2018 - Obesity, Class I, BMI 30-34.9 01/16/2018 - Encephalopathy 01/13/2018 - DIC (disseminated intravascular coagulation) ([facility]) 01/12/2018 - Hemorrhagic shock ([facility]) 01/12/2018 - Acute respiratory failure ([facility]) 01/12/2018 - Cardiac arrest ([facility]) 01/12/2018 - Hypernatremia 01/12/2018 - Hypokalemia 01/12/2018 - Hypomagnesemia 01/12/2018 - Hypophosphatemia 01/12/2018 - Hyperchloremia 01/12/2018 - AAA (abdominal aortic aneurysm, ruptured) ([facility]) 01/12/2018 Overview Note: Added automatically from request for surgery [id number] 77 year old male with Ruptured AAA [...] January 28, 2018 TIME: 8:45 AM Pager: [phone] CHEST 1 VIEW Observed: 01/28/2018 Status: F Source: [facility] 5:51 AM HEALTH SYSTEM REPOSITORY Performed at [facility] APPROVED BY: Bernardino Lewis MD EXAM [...] IONIZED CALCIUM Collected: 01/28/2018 Status: F Source: [facility] 5:00 AM HEALTH SYSTEM REPOSITORY TYPE CODE TESTS RESULT OUT OF REFERENCE UNITS RANGE LAB CAION(LOINC 4.43-4.93 mg/dL ) Low Ionized 4.14 Calcium LAB PHCAI(LOINC 7.320-7.420 ) pH High 7.455 LAB CAPH(LOINC) 4.36-4.73 mg/dL Low Ionized 4.25 Ca,PH7.4 Performed By: #### IONCA #### [facility] [address] [place] [address] HEMOGRAM/DIFF Collected: 01/28/2018 Status: F Source: [facility] 5:00 AM HEALTH SYSTEM REPOSITORY TYPE CODE [...] 0.49 LAB MONON(LOIN 0.30-0.82 thou/cmm C) Abs. Luna 0.36 LAB EOSN(LOINC 0.04-0.54 thou/cmm ) Low Abs. Eosin 0.01 LAB BASON(LOIN 0.01-0.08 thou/cmm C) Abs. Baso 0.01 Result Comment: Smear scanned; tech agrees with automated differential Performed By: #### CBCD1 #### [place] [address] HEPATIC PANEL Collected: 01/28/2018 Status: F Source: [facility] 5:00 HEALTH SYSTEM REPOSITORY TYPE CODE TESTS [...] Blood 1.0 Performed By: #### HEPAP #### [place] [address] RENAL PANEL Collected: 01/28/2018 Status: F Source: [facility] 5:00 AM HEALTH SYSTEM REPOSITORY TYPE CODE [...] 2.7 Performed By: #### RENAL #### [facility] [address] [place] [id number] EKG (AK,AV,EU,FV,HL,CYNTHIA,MM,SP) Observed: Status: F Source: [facility] 01/28/2018 4:[address] [facility] OTHER CAMP[facility] REPOSITORY NAME : NAVEEN AKINS PID : [id number] : 1940 Gender : Male Race : ORD : [id number] Procedure Date : Jan 28 2018 04:32 [...] ms QTC Calculation(Bezet) : 461 ms P [place] : -26 degrees R [place] : -1 degrees T [place] : 45 degrees Test Reason : Check QT Location : 3 : [place] [address] Overread By : MD Pardo Vinayak A. Editted By : MD Pardo Vinayak A. Referred By : PAULO LOVELACE Acquired by : Xuan Warner OPERATIVE NO Observed: 01/27/2018 Status: COMPLETED Source: [facility] 9:[address] [facility] REPOSITORY HNO ID: [id number] Author: Ashu Menezes Service: General Surgery Author Type: Physician Type: Operative Report Filed: 02/08/2018 6:41 AM Note Text: Operative Note: ? LOG ID: [id number] SURGERY/PROCEDURE DATE: 01/27/2018 INCISION/PROCEDURE START TIME: 12:59 PM INCISION CLOSE/PROCEDURE END TIME: 2:17 PM ? SURGEON(S)/PROCEDURALIST(S) AND CONSTRUCTION CONTROLLER(S): Surgeon(s) and Role: Panel 2: * Ashu Menezes - Primary * Darrell (Res) DO Corby - Assisting Supervisor Concrete Stone Finishing: Hailey () SA Zack; Sherrill () SA Anjali ? SURGERY/PROCEDURE(S): percutaneous endoscopic gastrostomy tube placement ? ANESTHESIA: General ? FINDINGS: diffuse gastritis and esophagitis, no discrete ulcer, 20 Spanish gastrostomy tube placed to 4 cm at [...] endoscopic gastrostomy tube. Patient and/or Power of deputy county attorney was consented for the risks, benefits, [...] RENAL PANEL Collected: 01/27/2018 Status: F Source: [facility] 5:20 PM [facility] REPOSITORY TYPE CODE TESTS RESULT OUT [...] 3.7 Performed By: #### RENAL #### [facility] [address] [place] [address] MAGNESIUM BLOOD Collected: 01/27/2018 Status: F Source: [facility] 5:20 PM [facility] REPOSITORY TYPE CODE TESTS RESULT OUT OF REFERENCE UNITS RANGE LAB MAG(LOINC) 1.6-2.6 mg/dL Magnesium Blood 2.4 Performed By: #### MAG #### [facility] [address] [place] [address] NURSING PROG Observed: 01/27/2018 Status: COMPLETED Source: [facility] 3:30 PM CL[facility] OTHER CAMPUS REPOSITORY HNO ID: [id number] Author: Traci Delvalle (Rn) MAGALY Oconnell Service: [...] ANES POST Observed: 01/27/2018 Status: COMPLETED Source: [facility] 3:15 PM [facility] REPOSITORY HNO ID: [id number] Author: Tim Menon Service: Anesthesiology Author Type: [...] 27, 2018 TIME: 3:16 PM PAGER/CONTACT #: [phone] BRIEF OP NOT Observed: 01/27/2018 Status: COMPLETED Source: [facility] 2:50 PM [facility] REPOSITORY HNO ID: [id number] Author: Simi Cox Service: Vascular Surgery Author Type: Physician Type: Brief Op Note Filed: 01/27/2018 2:55 PM Note Text: VASCULAR SURGERY BRIEF OPERATIVE NOTE Surgery/Procedure Date: 01/27/2018 Incision/Procedure Start Time: 12:59 PM Incision Close/Procedure End Time: 2:17 PM [facility] [id number] y/o Preop Diagnosis (Diagnosis Codes): Pre-Op Diagnosis Codes: * AAA (abdominal aortic aneurysm, ruptured) ([facility]) [I71.3] Failure to wean from ventilator Postop Diagnosis: Same Procedure(s): tracheostomy, 8 fr Primary Surgeon(s): Simi Cox MD Thoracic and Vascular Surgery Beeper# [phone] Rn Training(s): SA KE TAY MD Anesthesia: General Estimated Blood Loss: 15 cc Fluids: 100 cc crystalloid Urine Output: NOT RECORDED, MINIMAL cc Specimens Removed: None Drains: None Complications: None Findings: THYROID INFLAMMATION, MARKEDLY ADHERENT TO TRACHEA SIGNATURE: Simi Cox MD PATIENT NAME: Naveen Akins DATE: January 27, 2018 TIME: 2:50 PM @ORCPT@ BRIEF OP NOT Observed: 01/27/2018 Status: COMPLETED Source: [facility] 2:[address] [facility] REPOSITORY O ID: [id number] Author: Ashu Menezes Service: General Surgery Author Type: Physician Type: Brief Op Note Filed: 01/28/2018 5:25 PM Note Text: BRIEF OPERATIVE / PROCEDURE NOTE LOG ID: [id number] SURGERY/PROCEDURE DATE: 01/27/2018 INCISION/PROCEDURE START TIME: 12:59 PM INCISION CLOSE/PROCEDURE END TIME: 2:17 PM SURGEON(S)/PROCEDURALIST(S) AND CONSTRUCTION CONTROLLER(S): Surgeon(s) and Role: Panel 1: * Simi Cox - Primary Panel 2: * Ashu Menezes - Primary * Darrell (Luther Tavarez DO - Assisting Supervisor Concrete Stone Finishing: BERNARD Tay Sa, Sa, SA SURGERY/PROCEDURE(S): Tracheostomy, percutaneous endoscopic gastrostomy tube placement ANESTHESIA: General FINDINGS: diffuse gastritis and esophagitis, no discrete ulcer, 20 Spanish gastrostomy tube placed to 4 cm at the skin ESTIMATED BLOOD LOSS: 20 mls SPECIMENS: None COMPLICATIONS: None PRE-OP/PRE-PROCEDURE DIAGNOSIS: Dysphagia, AAA (abdominal aortic aneurysm, ruptured) (HCC) [I71.3] POST-OP/POST-PROCEDURE DIAGNOSIS: dysphagia, AAA (abdominal aortic aneurysm, ruptured) (HCC) [I71.3] SIGNATURE: Darrell Tavarez DO PATIENT NAME: Naveen Akins DATE: January 27, 2018 TIME: 2:35 PM PAGER/CONTACT #: [phone] [facility] Operative Staff Addendum I was present and participated in the entire procedure. Ashu Menezes MD ANEConor PREOP Observed: 01/27/2018 Status: COMPLETED Source: [facility] 1:[address] [facility] REPOSITORY HNO ID: [id number] Author: Derian Barlow Service: Anesthesiology Author Type: [...] Hyperchloremia Encephalopathy Aaa (Abdominal Aortic Aneurysm, Ruptured) ([facility]) Obesity, Class I, Bmi 30-34.9 PAST [...] 1 Drop BOTH EYES QID PRN Paulo (Assembler For Puller Over Hand) Radu 1 Drop at 01/26/18 1724 [MAR [...] January 27, 2018 TIME: 1:33 PM CSN: [id number] NUTRITION Observed: 01/27/2018 Status: COMPLETED Source: [facility] 11:39 AM [facility] REPOSITORY [facility] ID: [id number] Author: Viry Mosher RD Service: NST-Nutrition Support [...] displayed. Recent Labs 01/26/18 1050 PREALB 17.0* Vriy Mosher RD, LD, [facility] Pager: [phone] Increments: 3 PROGRESS Observed: 01/27/2018 Status: COMPLETED Source: [facility] 11:25 AM [facility] OTHER [facility]AMPUS REPOSITORY HNO ID: [id number] Author: Troy Godoy Service: Nephrology Author Type: [...] levophed PROGRESS Observed: 01/27/2018 Status: COMPLETED Source: [place] 11:[address] [facility] REPOSITORY [facility] ID: [id number] Author: Paulo Dail) Radu Service: Critical Care Author Type: Nurse [...] 40 minutes excluding procedures. SIGNATURE: Paulo Lovelace APRN.MODEL BUILDER PATIENT NAME: Naveen Akins DATE: January 27, 2018 TIME: 11:04 AM NURSING PROG Observed: 01/27/2018 Status: COMPLETED Source: [facility] 10:58 AM [facility] OTHER CAMPUS REPOSITORY O ID: [id number] Author: Janell (Rn) MAGALY Fabian Service: Nursing Author Type: Registered Nurse Type: Nursing Progress Note Filed: 01/27/2018 1:01 PM Note Text: Nursing Progress Note Patient Name: Naveen Akins Patient Location: [id number]/[facility]* Daily Note:0845: Pre-surg nurse called for report [...] RN PROGRESS Observed: 01/27/2018 Status: COMPLETED Source: [facility] 10:55 AM [facility] OTHER [facility]AMP[facility] REPOSITORY HNO ID: [id number] Author: Dorcas Palafox Service: Critical Care Author [...] Gallstone Pancreatitis Ruptured Abdominal Aortic Aneurysm (Aaa) ([facility]) Dic (Disseminated Intravascular Coagulation) ([facility]) Hemorrhagic Shock ([facility]) Acute Respiratory Failure ([facility]) Cardiac Arrest ([facility]) Hypernatremia Hypokalemia Hypomagnesemia Hypophosphatemia Hyperchloremia Encephalopathy Aaa (Abdominal Aortic Aneurysm, Ruptured) ([facility]) Obesity, Class I, Bmi 30-34.9 1. [...] 27, 2018 TIME: 10:56 AM PAGER/CONTACT #: [phone] RENAL PANEL Collected: 01/27/2018 Status: F Source: [facility] 10:50 AM [facility] REPOSITORY TYPE CODE TESTS RESULT OUT [...] Blood 3.1 Performed By: #### RENAL #### [place] [address] MAGNESIUM BLOOD Collected: 01/27/2018 Status: F Source: [facility] 10:50 AM [facility] REPOSITORY TYPE CODE TESTS RESULT OUT OF REFERENCE UNITS RANGE LAB MAG(LOINC) 1.6-2.6 mg/dL Magnesium Blood 2.4 Performed By: #### MAG #### [place] [address] CASE MANAGEM Observed: 01/27/2018 Status: COMPLETED Source: [facility] 10:33 AM [facility] OTHER [facility]AMP[facility] REPOSITORY HNO ID: [id number] Author: Lupe TylerRn) MAGALY Cheng Service: Care [...] 27, 2018 TIME: 10:34 AM PAGER/CONTACT #: [phone] PROGRESS Observed: 01/27/2018 Status: COMPLETED Source: [place] 9:[address] [facility] REPOSITORY HNO ID: [id number] Author: Abbi (Rn) MAGALY Mtz Service: Wound Care Team Author Type: Registered Nurse Type: Progress Notes Filed: 01/27/2018 10:03 AM Note Text: WOUND CARE NURSE PROGRESS NOTE SERVICE DATE: 01/27/2018 SERVICE TIME: 0940 REASON FOR VISIT: Wound TIME SPENT (minutes): 30 Patient seen today by Josseline Magana, CHILD CARE COOK-C, and siva radiology teacher. Wound vac dressing to midline abdomen changed. [...] January 27, 2018 TIME: 10:01 AM CONTACT#: [id number] PROGRESS Observed: 01/27/2018 Status: COMPLETED Source: [place] 7:[address] [facility] REPOSITORY HNO ID: [id number] Author: Ashu Menezes Service: General Surgery Author Type: Physician Type: Progress Notes Filed: 01/28/2018 5:50 PM Note Text: Emergency General Surgery Progress Note SERVICE DATE: 01/27/2018 Emergency General Surgery Service Pager: For questions or concerns Mon-Fri 6a-5p please page [phone]. After 5pm and on Weekends and Holidays, please page [phone] if in ICU or [phone] if on RNF. SUBJECTIVE: Weaned down on [...] 01/26/18699 - 01/27/1865801/27/18699 - 01/28/18 0659 Shift 5013-5557 2511-2022 6430-6109 24 Hour Total 9286-3696 4159-9926 9612-0357 24 Hour Total I N T A [...] x 0 x 0 x Dialysis 976 309 402 3217 Dialysis Output (Ultrafiltration) 976 692 213 9380 Shift Total 1076 968 287 7524 Weight (kg) 84 84 82.2 82.2 82.2 [...] Noted - Ruptured abdominal aortic aneurysm (AAA) ([facility]) 01/12/2018 - Obesity, Class I, BMI 30-34.9 01/16/2018 - Encephalopathy 01/13/2018 - DIC (disseminated intravascular coagulation) ([facility]) 01/12/2018 - Hemorrhagic shock ([facility]) 01/12/2018 - Acute respiratory failure ([facility]) 01/12/2018 - Cardiac arrest ([facility]) 01/12/2018 - Hypernatremia 01/12/2018 - Hypokalemia 01/12/2018 - Hypomagnesemia 01/12/2018 - Hypophosphatemia 01/12/2018 - Hyperchloremia 01/12/2018 - AAA (abdominal aortic aneurysm, ruptured) ([facility]) 01/12/2018 Overview Note: Added automatically from request for surgery [id number] 77 year old male with Ruptured AAA [...] PHERESED PLATELETS Collected: 01/27/2018 Status: F Source: [facility] 7:25 AM HEALTH SYSTEM REPOSITORY TYPE CODE TESTS RESULT OUT OF REFERENCE UNITS RANGE LAB PPHR(LOINC) Pheresed Plts Done unit 1 Performed By: #### PPHRS #### [place] [address] RBC PRODUCTS Collected: 01/27/2018 Status: F Source: [facility] 7:25 AM HEALTH SYSTEM REPOSITORY TYPE CODE TESTS RESULT OUT OF REFERENCE UNITS RANGE LAB UNIT1(LOINC ) Xmatch Unit 1 see below Result Comment: Compatible LAB UNIT2(LOINC) Xmatch Unit 2 see below Result Comment: Compatible Performed By: #### RBCPS #### [place] [address] PROGRESS Observed: 01/27/2018 Status: COMPLETED Source: [facility] 6:28 AM CLINIC OTHER CAMPUS REPOSITORY O ID: [id number] Author: Dionicio (Luther Stevens Service: Vascular Surgery [...] 01/26/18699 - 01/27/1865801/27/18699 - 01/28/18 0659 Shift 6752-2273 6559-2990 0119-0569 24 Hour Total 9577-4652 4557-1959 1739-3813 24 Hour Total I N T A [...] x 0 x 0 x Dialysis 976 684 574 2521 Dialysis Output (Ultrafiltration) 976 281 517 4145 Shift Total 1076 895 934 0869 Weight (kg) 84 84 82.2 82.2 82.2 [...] Noted - Ruptured abdominal aortic aneurysm (AAA) ([facility]) 01/12/2018 - Obesity, Class I, BMI 30-34.9 01/16/2018 - Encephalopathy 01/13/2018 - DIC (disseminated intravascular coagulation) ([facility]) 01/12/2018 - Hemorrhagic shock ([facility]) 01/12/2018 - Acute respiratory failure ([facility]) 01/12/2018 - Cardiac arrest ([facility]) 01/12/2018 - Hypernatremia 01/12/2018 - Hypokalemia 01/12/2018 - Hypomagnesemia 01/12/2018 - Hypophosphatemia 01/12/2018 - Hyperchloremia 01/12/2018 - AAA (abdominal aortic aneurysm, ruptured) ([facility]) 01/12/2018 Overview Note: Added automatically from request for surgery [id number] 77 year old male with Ruptured AAA [...] 1 VIEW Observed: 01/27/2018 Status: F Source: [facility] 6:20 AM HEALTH SYSTEM REPOSITORY Performed at [facility] APPROVED BY: Benigno Lee MD Portable frontal chest, 0554 hours: CLINICAL INDICATION: Respiratory failure. COMPARISON: Daily prior chest radiographs. Multiple wires and tubes overlie the chest. There is an endotracheal tube in profile with the tracheal airway terminating above the kianna, an enteric tube extending into the stomach and a right software engineer intern al jugular central venous catheter terminating in profile with the right atrium. There are bilateral perihilar and right infrahilar parenchymal opacities. The lateral costophrenic angles are clear. The cardiac and mediastinal silhouette appears stable. IMPRESSION: Bilateral parenchymal opacities, possible atelectasis or pneumonia. Life-support equipment as noted. HEMOGRAM/DIFF Collected: 01/27/2018 Status: F Source: [facility] 5:30 AM HEALTH SYSTEM REPOSITORY TYPE CODE [...] 0.67 LAB MONON(LOIN 0.30-0.82 thou/cmm C) Abs. Luna 0.41 LAB EOSN(LOINC 0.04-0.54 thou/cmm ) Low Abs. Eosin 0.02 LAB BASON(LOIN 0.01-0.08 thou/cmm C) Abs. Baso 0.02 Result Comment: Smear scanned; tech agrees with automated differential Performed By: #### CBCD1 #### [place] [address] IONIZED CALCIUM Collected: 01/27/2018 Status: F Source: [facility] 5:30 AM HEALTH SYSTEM REPOSITORY TYPE CODE TESTS RESULT OUT OF REFERENCE UNITS RANGE LAB CAION(LOINC 4.43-4.93 mg/dL ) Low Ionized 4.26 Calcium LAB PHCAI(LOINC 7.320-7.420 ) pH 7.363 LAB CAPH(LOINC) 4.36-4.73 mg/dL Low Ionized 4.18 Ca,PH7.4 Performed By: #### IONCA #### [facility] [address] [place] [address] RENAL PANEL Collected: 01/27/2018 Status: F Source: [facility] 5:30 AM HEALTH SYSTEM REPOSITORY TYPE CODE [...] Blood 2.8 Performed By: #### RENAL #### [place] [address] MAGNESIUM BLOOD Collected: 01/27/2018 Status: F Source: [facility] 5:30 AM HEALTH SYSTEM REPOSITORY TYPE CODE TESTS RESULT OUT OF REFERENCE UNITS RANGE LAB MAG(LOINC) 1.6-2.6 mg/dL Magnesium Blood 2.4 Performed By: #### MAG #### [place] [address] RENAL PANEL Collected: 01/26/2018 Status: F Source: [facility] 11:45 PM HEALTH SYSTEM REPOSITORY TYPE CODE [...] 3.0 Performed By: #### RENAL #### [facility] [address] [place] [address] MAGNESIUM BLOOD Collected: 01/26/2018 Status: F Source: [facility] 11:45 PM HEALTH SYSTEM REPOSITORY TYPE CODE TESTS RESULT OUT OF REFERENCE UNITS RANGE LAB MAG(LOINC) 1.6-2.6 mg/dL Magnesium Blood 2.4 Performed By: #### MAG #### [facility] [address] [place] [address] ALLIED HEALTH Observed: 01/26/2018 Status: COMPLETED Source: [facility] 8:27 PM [facility] REPOSITORY HNO ID: [id number] Author: Chaplain Saenz (Chaplain) Service: Spiritual Care Author Type: Agency Owner Type: Allied Health Filed: 01/26/2018 8:28 PM Note Text: SPIRITUALCARE Spiritual Care Visit- Brief Note Name: Naveen Akins Date: January 26, 2018 Notes: Pre-Surg visit attempted; staff working with pt; no family in room Agency Owner Signature: Chaplain Dany To contact the Spiritual Care Department: Please call [phone] or Page the On-Call Agency Owner at pager [phone] Thank you for the opportunity to be of service. This is an electronically created document. IF PRINTED, PLEASE DO NOT REMOVE FROM THE CHART OR MODIFY PRINTED COPY. NURSING PROG Observed: 01/26/2018 Status: COMPLETED Source: [facility] 7:25 PM [facility] OTHER [facility] REPOSITORY HNO ID: [id number] Author: Traci Delvalle (Rn) MAGALY Oconnell Service: Dialysis Author Type: Registered Nurse Type: Nursing Progress Note Filed: 01/26/2018 7:28 PM Note Text: CRRT circuit changed All orders resumed bfr 200 Lines reversed A:V V:A Hemosafe devices on x 2 Report to Icu nurse Will monitor closely RENAL PANEL Collected: 01/26/2018 Status: F Source: [facility] 6:00 PM HEALTH SYSTEM REPOSITORY TYPE CODE [...] Blood 3.1 Performed By: #### RENAL #### [place] [address] MAGNESIUM BLOOD Collected: 01/26/2018 Status: F Source: [facility] 6:00 PM HEALTH SYSTEM REPOSITORY TYPE CODE TESTS RESULT OUT OF REFERENCE UNITS RANGE LAB MAG(LOINC) 1.6-2.6 mg/dL Magnesium Blood 2.4 Performed By: #### MAG #### [place] [address] ALLIED HEALTH Observed: 01/26/2018 Status: COMPLETED Source: [facility] 1:00 PM CLINIC OTHER CAMPUS REPOSITORY HNO ID: [id number] Author: Chaplain Serna (Chaplain) Service: Spiritual Care Author Type: Agency Owner Type: Allied Health Filed: 01/26/2018 2:01 PM [...] we are here if they need us. Agency Owner Signature: Chaplain Daphne To contact the Spiritual Care Department: Please call [phone] or Page the On-Call Agency Owner at pager [phone] Thank you for the opportunity to be of service. This is an electronically created document. IF PRINTED, PLEASE DO NOT REMOVE FROM THE CHART OR MODIFY PRINTED COPY. PROGRESS Observed: 01/26/2018 Status: COMPLETED Source: [facility] 12:54 PM CLINIC OTHER CAMPUS REPOSITORY HNO ID: [id number] Author: Troy Godoy Service: Nephrology Author Type: [...] progress NUTRITION Observed: 01/26/2018 Status: COMPLETED Source: [facility] 11:44 AM [facility] REPOSITORY [facility] ID: [id number] Author: Viry Mosher RD Service: NST-Nutrition Support [...] shock, acute resp failure with pulm edema, TERENEC, SVT s/p Third Look Laparotomy and?washout on [...] 1655 PREALB 18.6* Viry Mosher RD, LD, [facility] Pager: [phone] Increments: 3 PROGRESS Observed: 01/26/2018 Status: COMPLETED Source: [facility] 11:17 AM CLINIC OTHER CAMPUS REPOSITORY HNO ID: [id number] Author: Tracey (Rn) MAGALY De La Fuente Service: Dialysis Author Type: Registered Nurse Type: Progress Notes Filed: 01/26/2018 11:19 AM Note Text: CRRT circuit changed due to clotting filter. Access via right femoral temp HD cath. PBP, dialysate and post rep. At 800ml/hr. BFR at 150ml/min. Report to Jose GARDNER. RENAL PANEL Collected: 01/26/2018 Status: F Source: [facility] 10:50 AM HEALTH SYSTEM REPOSITORY TYPE CODE [...] 3.3 Performed By: #### RENAL #### [facility] [address] [place], [place] [address] MAGNESIUM BLOOD Collected: 01/26/2018 Status: F Source: [facility] 10:50 AM HEALTH SYSTEM REPOSITORY TYPE CODE TESTS RESULT OUT OF REFERENCE UNITS RANGE LAB MAG(LOINC) 1.6-2.6 mg/dL Magnesium Blood 2.5 Performed By: #### MAG #### [facility] [address] [place] [address] PREALBUMIN Collected: 01/26/2018 Status: F Source: [facility] 10:50 AM HEALTH SYSTEM REPOSITORY TYPE CODE TESTS RESULT OUT OF REFERENCE UNITS RANGE LAB PAB(LOINC) 20.0-40.0 mg/dL Low Prealbumin 17.0 Performed By: #### PAB #### [facility] [address] [place] [address] PROGRESS Observed: 01/26/2018 Status: COMPLETED Source: [facility] 10:40 AM CLINIC OTHER CAMPUS REPOSITORY O ID: [id number] Author: Paulo Lovelace (Cns) Service: Critical Care [...] 40 minutes excluding procedures. SIGNATURE: Paulo Lovelace APRN.MODEL BUILDER PATIENT NAME: Naveen Akins DATE: January 26, 2018 TIME: 10:41 AM ALLIED HEALTH Observed: 01/26/2018 Status: COMPLETED Source: [facility] 9:[address] [facility] OTHER CAMPUS REPOSITORY [facility] ID: [id number] Author: Chaplain Serna (Chaplain) Service: Spiritual Care [...] follow this patient and fam as appropriate. Agency Owner Signature: Maggi De La Paz, Agency Owner To contact the Spiritual Care Department: Please call [phone] or Page the On-Call Agency Owner at pager [phone] Thank you for the opportunity to be of service. This is an electronically created document. IF PRINTED, PLEASE DO NOT REMOVE FROM THE CHART OR MODIFY PRINTED COPY. PROGRESS Observed: 01/26/2018 Status: COMPLETED Source: [facility] 9:[address] [facility] OTHER CAMPUS REPOSITORY HNO ID: [id number] Author: Dorcas Palafox Service: Critical Care Author [...] Intake/Output Summary (Last 24 hours) at 01/26/18 0917 Last data filed at 01/26/18 0745 Gross [...] Hyperchloremia Encephalopathy Aaa (Abdominal Aortic Aneurysm, Ruptured) ([facility]) Obesity, Class I, Bmi 30-34.9 1. [...] 26, 2018 TIME: 9:27 AM PAGER/CONTACT #: [phone] PROGRESS Observed: 01/26/2018 Status: COMPLETED Source: [facility] 6:27 AM CLINIC OTHER CAMPUS REPOSITORY HNO ID: [id number] Author: Dionicio Stevens Service: Vascular Surgery Author [...] questions or concerns Mon-Tue 6a-5p please page [phone]. After 5pm and on Weekends and Holidays, please page [phone] if in ICU or [phone] if on RNF. Subjective SUBJECTIVE: Increased secretions [...] 01/26/18 0659 01/26/18699 - 01/27/18 0659 Shift 7413-5506 1785-6113 4517-7956 24 Hour Total 4171-1006 4423-4038 0264-1627 24 Hour Total I N T A [...] 01/12/18 0749 Abdomen) 0 0 Tubes 220 5692 818 1521 Drain/Tube Output (Drain/Tube 01/19/18 1015 Midline Abdomen) 20 10 0 30 Output (GI Feed/Drain 01/12/18 0100) 200 3208 810 1806 # of BMs Number of BMs 0 x 2 x 0 x 2 x Dialysis 1309 207 208 0753 Dialysis Output (Ultrafiltration) 1309 043 450 0014 Shift Total 1529 6813 006 9119 Weight (kg) 84 84 84 84 84 [...] Noted - Ruptured abdominal aortic aneurysm (AAA) ([facility]) 01/12/2018 - Obesity, Class I, BMI 30-34.9 01/16/2018 - Encephalopathy 01/13/2018 - DIC (disseminated intravascular coagulation) ([facility]) 01/12/2018 - Hemorrhagic shock ([facility]) 01/12/2018 - Acute respiratory failure ([facility]) 01/12/2018 - Cardiac arrest ([facility]) 01/12/2018 - Hypernatremia 01/12/2018 - Hypokalemia 01/12/2018 - Hypomagnesemia 01/12/2018 - Hypophosphatemia 01/12/2018 - Hyperchloremia 01/12/2018 - AAA (abdominal aortic aneurysm, ruptured) ([facility]) 01/12/2018 Overview Note: Added automatically from request for surgery [id number] 77 year old male with Ruptured AAA [...] 1 VIEW Observed: 01/26/2018 Status: F Source: [facility] 5:14 AM HEALTH SYSTEM REPOSITORY Performed at [facility] APPROVED BY: Yajaira Veronica MD EXAM [...] IONIZED CALCIUM Collected: 01/26/2018 Status: F Source: [facility] 4:15 AM HEALTH SYSTEM REPOSITORY TYPE CODE TESTS RESULT OUT OF REFERENCE UNITS RANGE LAB CAION(LOINC 4.43-4.93 mg/dL ) Low Ionized 4.11 Calcium LAB PHCAI(LOINC 7.320-7.420 ) pH High 7.437 LAB CAPH(LOINC) 4.36-4.73 mg/dL Low Ionized 4.18 Ca,PH7.4 Performed By: #### IONCA #### [facility] [address] [place] [address] HEMOGRAM/DIFF Collected: 01/26/2018 Status: F Source: [facility] 4:15 AM HEALTH SYSTEM REPOSITORY TYPE CODE [...] 0.55 LAB MONON(LOIN 0.30-0.82 thou/cmm C) Abs. Luna 0.41 LAB EOSN(LOINC 0.04-0.54 thou/cmm ) Abs. Eosin Low 0.00 LAB BASON(LOIN 0.01-0.08 thou/cmm C) Abs. Baso Low 0.00 LAB RBCM(LOINC ) RBC Morphology Present LAB ANISO(LOIN C) Anisocytosis Slight Performed By: #### CBCD1 #### [facility] [address] [place] [address] HEPATIC PANEL Collected: 01/26/2018 Status: F Source: [facility] 4:15 AM HEALTH SYSTEM REPOSITORY TYPE CODE [...] Bilirubin 7.5 Performed By: #### HEPAP #### [place] [address] BASIC PANEL Collected: 01/26/2018 Status: F Source: [facility] 4:15 AM HEALTH SYSTEM REPOSITORY TYPE CODE [...] Gap 13 Performed By: #### P8 #### [place] [address] MAGNESIUM BLOOD Collected: 01/26/2018 Status: F Source: [facility] 4:15 AM HEALTH SYSTEM REPOSITORY TYPE CODE TESTS RESULT OUT OF REFERENCE UNITS RANGE LAB MAG(LOINC) 1.6-2.6 mg/dL Magnesium Blood 2.6 Performed By: #### MAG #### [facility] [address] [place] [address] PHOSPHORUS BLOOD Collected: 01/26/2018 Status: F Source: [facility] 4:15 AM HEALTH SYSTEM REPOSITORY TYPE CODE TESTS RESULT OUT OF REFERENCE UNITS RANGE LAB PHOS(LOINC 2.5-4.9 mg/dL ) Phosphorus Blood 3.1 Performed By: #### PHOS #### [facility] [address] [place] [address] TRIGLYCERIDE BLOOD Collected: 01/26/2018 Status: F Source: [facility] 4:15 AM HEALTH SYSTEM REPOSITORY TYPE CODE TESTS RESULT OUT OF REFERENCE UNITS RANGE LAB TRIG(LOINC 0-149 mg/dL ) Triglyceride High Blood 352 Result Comment: < 200 Desirable Result invalid if not a fasting specimen. Performed By: #### TRIG #### [facility] [address] [place] [address] PROGRESS Observed: 01/25/2018 Status: COMPLETED Source: [facility] 11:44 PM CLINIC OTHER CAMPUS REPOSITORY HNO ID: [id number] Author: Elder Granda Service: Critical Care Author Type: Physician Type: Progress Notes Filed: 01/25/2018 11:46 PM Note Text: GNR from sputum in 01/24. Sputum is thick. Completed a prolonged course of IV ABx. Will start Zosyn. Elder Granda MD 01/25/2018 11:46 PM HEMOGRAM/DIFF Collected: 01/25/2018 Status: F Source: [facility] 10:35 PM HEALTH SYSTEM REPOSITORY TYPE CODE [...] 0.63 LAB MONON(LOIN 0.30-0.82 thou/cmm C) Abs. Luna 0.37 LAB EOSN(LOINC 0.04-0.54 thou/cmm ) Low Abs. Eosin 0.00 LAB BASON(LOIN 0.01-0.08 thou/cmm C) Abs. Baso 0.03 Performed By: #### CBCD1 #### [facility] [address] [place] [address] RENAL PANEL Collected: 01/25/2018 Status: F Source: [facility] 10:35 PM HEALTH SYSTEM REPOSITORY TYPE CODE [...] 2.8 Performed By: #### RENAL #### [facility] [address] [place] [address] MAGNESIUM BLOOD Collected: 01/25/2018 Status: F Source: [facility] 10:35 PM HEALTH SYSTEM REPOSITORY TYPE CODE TESTS RESULT OUT OF REFERENCE UNITS RANGE LAB MAG(LOINC) 1.6-2.6 mg/dL Magnesium Blood 2.5 Performed By: #### MAG #### [place] [address] ALLIED HEALTH Observed: 01/25/2018 Status: COMPLETED Source: [facility] 10:14 PM [facility] OTHER CAMPUS REPOSITORY HNO ID: [id number] Author: Gilbert TylerAgency OwnerChaplain Mike Service: Spiritual Care Author Type: Agency Owner Type: Allied Health Filed: 01/25/2018 10:21 PM Note Text: SPIRITUALCARE Spiritual Care Visit- Brief Note Name: Naveen Akins Date: January 25, 2018 Notes: While making rounds game attendant visited Pt's family in 3rd floor WR. Family stated they are praying for a miracle. Agency Owner provided spiritual comfort and supportive presence. Per families request game attendant offered bedside prayers with Pt's RN present. Pt's RN indicated the Pt's condition is critical. Agency Owner provided SC/supprt and encouragement for Pt's RN. Agency Owner later returned and presented Pt's family with a Prayer [place]. Pt's family grateful for spiritual care/support, chaplains availability and prayer blanket. Agency Owner to remain available. Agency Owner Signature: Chaplain Familia To contact the [facility] Care Department: Please call [phone] or Page the On-Call Agency Owner at pager [phone] Thank you for the opportunity to be of service. This is an electronically created document. IF PRINTED, PLEASE DO NOT REMOVE FROM THE CHART OR MODIFY PRINTED COPY. PROGRESS Observed: 01/25/2018 Status: COMPLETED Source: [facility] 9:32 PM CLINIC OTHER CAMPUS REPOSITORY HNO ID: [id number] Author: Jocelynn Chance Service: General Surgery Author [...] 25, 2018 9:37 PM [facility] #: Pager: [phone] MAGNESIUM BLOOD Collected: 01/25/2018 Status: F Source: [facility] 5:53 PM HEALTH SYSTEM REPOSITORY TYPE CODE TESTS RESULT OUT OF REFERENCE UNITS RANGE LAB MAG(LOINC) 1.6-2.6 mg/dL Magnesium Blood 2.6 Performed By: #### MAG #### [facility] [address] [place] [address] RENAL PANEL Collected: 01/25/2018 Status: F Source: [facility] 5:53 PM HEALTH SYSTEM REPOSITORY TYPE CODE [...] 3.0 Performed By: #### RENAL #### [facility] [address] [place] [address] ABDOMEN 1 VIEW Observed: 01/25/2018 Status: F Source: [facility] 4:22 PM HEALTH SYSTEM REPOSITORY Performed at [facility] APPROVED BY: Teddy Mota MD EXAM [...] GAS ARTERIAL Collected: 01/25/2018 Status: F Source: [facility] 4:00 HEALTH SYSTEM REPOSITORY TYPE CODE TESTS [...] -2.2 Performed By: #### ABG #### [facility] [address] [place], [place] [address] PROGRESS Observed: 01/25/2018 Status: COMPLETED Source: [facility] 3:47 PM CLINIC OTHER CAMPUS REPOSITORY O ID: [id number] Author: Paulo Lovelace (Cns) Service: Critical Care [...] 40 minutes excluding procedures. SIGNATURE: Paulo Lovelace APRN.MODEL BUILDER PATIENT NAME: Naveen Akins DATE: January 25, 2018 TIME: 3:48 PM PROGRESS Observed: 01/25/2018 Status: COMPLETED Source: [facility] 3:07 PM [facility]INIC OTHER CAMPUS REPOSITORY HNO ID: [id number] Author: Noel Garcia MD Service: Neurology General Author Type: Resident Type: Progress Notes Filed: 01/27/2018 11:41 PM Note Text: NEUROLOGY CONSULT PROGRESS NOTE SERVICE DATE: 01/25/2018 Current Attending Provider: Venkat Paniagua Subjective HPI: Naveen Akins is a 77 year old male?transferred in critical condition from [facility] with diagnosed ruptured AAA. Patient was life-flighted to [facility], intubated at outside facility. Per transport, patient [...] CASE MANAGEM Observed: 01/25/2018 Status: COMPLETED Source: [facility] 1:17 PM [facility] REPOSITORY HNO ID: [id number] Author: Lorrie TylerRn) MAGALY Bo Service: (none) [...] pursuit of trach (informed by nsg and vice president supply chain) which they seem agreeable to. Anticipate ltach [...] 25, 2018 TIME: 1:17 PM PAGER/CONTACT #: [phone] PROGRESS Observed: 01/25/2018 Status: COMPLETED Source: [facility] 1:[address] [facility] OTHER [facility] REPOSITORY HNO ID: [id number] Author: Dionicio Stevens Service: Vascular Surgery Author [...] questions or concerns Mon-Fri 6a-5p please page [phone]. After 5pm and on Weekends and Holidays, please page [phone] if in ICU or [phone] if on [...] 01/24/18699 - 01/25/1865801/25/18699 - 01/26/18 0659 Shift 2360-1486 4375-0569 4226-8347 24 Hour Total 4518-0204 8698-8038 6421-0477 24 Hour Total I N T A [...] 0 x 0 x 0 x Dialysis 469 303 8524 2350 976 976 Dialysis Output (Ultrafiltration) 993 201 8958 2350 976 976 Shift Total 533 777 8117 2570 1196 1196 Weight (kg) 83.6 83.6 [...] Noted - Ruptured abdominal aortic aneurysm (AAA) ([facility]) 01/12/2018 - Obesity, Class I, BMI 30-34.9 [...] Note: Added automatically from request for surgery [id number] 77 year old male with Ruptured AAA [...] RNF. NUTRITION Observed: 01/25/2018 Status: COMPLETED Source: [facility] 11:41 AM CLINIC OTHER CAMPUS REPOSITORY HNO ID: [id number] Author: Viry Mosher RD Service: NST-Nutrition Support [...] Impact 1.5 at 50-60 ?cc/hr is goal-->?provides 1285-2566 calories and 113-135 pro , currently at [...] 1655 PREALB 18.6* Viry Mosher RD, LD, [facility] Pager: [phone] Increments: 3 PROGRESS Observed: 01/25/2018 Status: COMPLETED Source: [facility] 11:08 AM CLINIC OTHER CAMPUS REPOSITORY O ID: [id number] Author: Shen Lorenzo Service: Nephrology Author Type: [...] 1 Drop BOTH EYES QID PRN Paulo (Assembler For Puller Over Hand) [place] 1 Drop at 01/24/18 1511 heparin [...] do not hesitate to contact me at [phone] if there is any question or concern. Rosanna Talbert MD (Shen Lorenzo) NURSING PROG Observed: 01/25/2018 Status: COMPLETED Source: [facility] 10:23 AM [facility] REPOSITORY HNO ID: [id number] Author: Donnell (Rn) MAGALY Velazco Service: Dialysis Author Type: Registered Nurse Type: Nursing Progress Note Filed: 01/25/2018 10:24 AM Note Text: Nursing Progress Note Patient Name: Naveen Akins [facility] [id number] Daily Note: Daily supervision for CRRT tx completed. Discussed tx with MAGALY Song, no complications at this time. Good flows from new femoral CVC. This note was completed by: Donnell Velazco RN PROGRESS Observed: 01/25/2018 Status: COMPLETED Source: [facility] 8:51 AM [facility] REPOSITORY HNO ID: [id number] Author: Dorcas Palafox Service: Critical Care Author [...] 25, 2018 TIME: 8:52 AM PAGER/CONTACT #: [phone] CHEST 1 VIEW Observed: 01/25/2018 Status: F Source: [facility] 5:46 AM HEALTH SYSTEM REPOSITORY Performed at [facility] APPROVED BY: Yajaira Veronica MD EXAM [...] ART AND Collected: 01/25/2018 Status: F Source: [facility] [place] 4:25 AM HEALTH SYSTEM REPOSITORY [...] 4.52 Performed By: #### ABGIG #### [facility] [address] [place] [address] HEMOGRAM/DIFF Collected: 01/25/2018 Status: F Source: [facility] 4:25 AM HEALTH SYSTEM REPOSITORY TYPE CODE [...] 0.66 LAB MONON(LOIN 0.30-0.82 thou/cmm C) Abs. Luna 0.35 LAB EOSN(LOINC 0.04-0.54 thou/cmm ) Low Abs. Eosin 0.00 LAB BASON(LOIN 0.01-0.08 thou/cmm C) Abs. Baso 0.02 Result Comment: Smear scanned; tech agrees with automated differential Performed By: #### CBCD1 #### [place] [address] MAGNESIUM BLOOD Collected: 01/25/2018 Status: F Source: [facility] 4:25 AM HEALTH SYSTEM REPOSITORY TYPE CODE TESTS RESULT OUT OF REFERENCE UNITS RANGE LAB MAG(LOINC) 1.6-2.6 mg/dL Magnesium Blood 2.6 Performed By: #### MAG #### [place] [address] PHOSPHORUS BLOOD Collected: 01/25/2018 Status: F Source: [facility] 4:25 AM HEALTH SYSTEM REPOSITORY TYPE CODE TESTS RESULT OUT OF REFERENCE UNITS RANGE LAB PHOS(LOINC 2.5-4.9 mg/dL ) Phosphorus Blood 2.9 Performed By: #### PHOS #### [place] [address] BASIC PANEL Collected: 01/25/2018 Status: F Source: [facility] 4:25 AM HEALTH SYSTEM REPOSITORY TYPE CODE [...] 16 Performed By: #### P8 #### [facility] [address] [place] [address] Observed: 01/24/2018 Status: F Source: [facility] 11:50 PM HEALTH SYSTEM RESPIRATORY REPOSITORY Test performed at [facility] Absence of normal oropharyngeal john Few Gram negative bacilli Many Polymorphonuclear leukocytes Few Mononuclear cells ORGANISM: Enterobacter cloacae (ID: 1) Many Performed By: #### C_RES #### [facility] [address] [address] ALLIED HEALTH Observed: 01/24/2018 Status: COMPLETED Source: [facility] 10:30 PM CLINIC OTHER CAMPUS REPOSITORY HNO ID: [id number] Author: Chaplain Robbins (Chaplain) Service: Spiritual Care Author Type: Agency Owner Type: Allied Health Filed: 01/24/2018 11:20 PM [...] Family is thankful for prayer and visits. Agency Owner Signature: Chaplain Rosendo To contact the Spiritual Care Department: Please call [phone] or Page the On-Call Agency Owner at pager [phone] Thank you for the opportunity to be of service. This is an electronically created document. IF PRINTED, PLEASE DO NOT REMOVE FROM THE CHART OR MODIFY PRINTED COPY. BLOOD GAS ARTERIAL Collected: 01/24/2018 Status: F Source: [facility] 10:30 PM HEALTH SYSTEM REPOSITORY TYPE CODE [...] -3.2 Performed By: #### ABG #### [facility] [address] [address] BLOOD GAS ARTERIAL Collected: 01/24/2018 Status: F Source: [facility] 6:20 HEALTH SYSTEM REPOSITORY TYPE CODE TESTS [...] -2.5 Performed By: #### ABG #### [facility] [address] [address] HEMOGRAM Collected: 01/24/2018 Status: F Source: [facility] 6:20 HEALTH SYSTEM REPOSITORY TYPE CODE TESTS [...] Absolute Performed By: #### CBC1 #### [facility] [address] [address] [address] HEAD W/O CONTRAST Observed: 01/24/2018 Status: F Source: [facility] 5:19 PM HEALTH SYSTEM REPOSITORY Performed at [facility] APPROVED BY: Moy Zelaya MD EXAMINATION: [...] CHEST EFFUSION Observed: 01/24/2018 Status: F Source: [facility] SURVEY LEFT 3:50 PM HEALTH SYSTEM REPOSITORY Performed at [facility] APPROVED BY: Ji Duarte MD Exam: Limited chest ultrasound dated 01/24/2018 15:30. Indication: Request for a therapeutic thoracentesis. Left pleural effusion. Comparison: CXR dated 01/24/2018. Technique: Real-time grayscale ultrasound of the chest was performed by the electrical design technologist. Ultrasound was performed prior to the procedure to evaluate presence and distribution of left pleural fluid. Findings: Sonographic evaluation of the left chest reveals minimal pleural fluid. There is insufficient pleural fluid to necessitate a therapeutic thoracentesis. IMPRESSION: Insufficient left pleural effusion to necessitate a therapeutic thoracentesis. PROCEDURE Observed: 01/24/2018 Status: COMPLETED Source: [facility] 3:00 PM CLINIC OTHER CAMPUS REPOSITORY HNO ID: [id number] Author: Shen Lorenzo Service: Nephrology Author Type: Physician Type: Procedures Filed: 01/24/2018 3:02 PM Note Text: BEDSIDE PROCEDURE NOTE DIALYSIS CATHETER Date/Start Time: 01/24/2018 3:00 PM Performed by: SHEN LORENZO Authorized by: SHEN LORENZO Consent/[place] Protocol Written Consent Obtained: Yes Sign In [...] to clinical factors necessitating an emergent procedure [facility] Insertion Checklist Utilized: yes Medications: [...] CONSULT PROG Observed: 01/24/2018 Status: COMPLETED Source: [facility] 2:16 PM [facility] REPOSITORY HNO ID: [id number] Author: Margaret (Rn) MAGALY Townsend Service: Wound/Ostomy Author Type: Registered Nurse Type: Consult Progress Note Filed: 01/24/2018 2:22 PM Note Text: Wound Care Consult Team Assessment Note: PATIENT NAME: Naveen Akins Reason for Assessment: Abdominal wound, wound vac Assessment: Patient seen today by Kaylene Magana CHILD CARE COOK and RN, see Wound Expert for detailed [...] Agrawal,RN,CWON CONSULT Observed: 01/24/2018 Status: COMPLETED Source: [facility] 2:13 PM [facility] REPOSITORY HNO ID: [id number] Author: Brad Castillo Service: Neurology Author Type: [...] time indicated below. Time may include specific [facility]-approved services including review of chest radiography, interpretation of cardiac function measurements, ECGs, pulse oximetry, ventilator management, and vascular access procedures as necessary, but does not include time spent teaching or procedures billed separately. ?? Critical care time: 35?minutes. ?? SIGNATURE: Brad Castillo MD PATIENT NAME: Naveen Akins DATE: January 24, 2018 TIME: 2:13 PM PAGER/CONTACT #:[phone] PROGRESS Observed: 01/24/2018 Status: COMPLETED Source: [facility] 2:11 PM CLINIC OTHER CAMPUS REPOSITORY O ID: [id number] Author: Shen Lorenzo Service: Nephrology Author Type: Physician Type: Progress Notes Filed: 01/24/2018 2:59 PM Note Text: Nephrology Progress Note Following for TERENCE. Pt is intubated/sedated. Remains off pressor. Current Inpatient Medications: Current Facility-Administered Medications Ordered in [facility]: Parenteral Nutrition - Adult INTRAVENOUS ONCE TPN (1800 START) Perla Dudley ipratropium-albuterol 3 mL nebulizer solution (DUONEB) 3 mL INHALATION QID Paulo (Assembler For Puller Over Hand) Hudock 3 mL at 01/24/18 1125 dexmedetomidine [...] 1 Drop BOTH EYES QID PRN Paulo (Assembler For Puller Over Hand) Hudock 1 Drop at 01/24/18 0838 heparin [...] 15 mL at 01/24/18 0838 No current [facility]-ordered outpatient prescriptions on file. Vitals: BP 132/57 [...] do not hesitate to contact me at [phone] if there is any question or concern. Rosanna Talbert MD (Shen Lorenzo) RBC PRODUCTS Collected: 01/24/2018 Status: F Source: [facility] 11:40 AM HEALTH SYSTEM REPOSITORY TYPE CODE TESTS RESULT OUT OF REFERENCE UNITS RANGE LAB UNIT1(LOINC ) Xmatch Unit 1 see below Result Comment: Compatible LAB UNIT2(LOINC) Xmatch Unit 2 see below Result Comment: Compatible Performed By: #### RBCPS #### [place] [address] TYPE AND SCREEN Collected: 01/24/2018 Status: F Source: [facility] 11:40 AM HEALTH SYSTEM REPOSITORY TYPE CODE TESTS RESULT OUT OF REFERENCE UNITS RANGE LAB ABO(LOINC) O ABO Group LAB SHIP CONSTRUCTION TEACHER(LOINC ) RH Type Positive LAB ABSCR(LOIN C) Antibody NEGATIVE Screen LAB BBCMT(LOIN C) Comment See Below Result Comment: Screen &/or Xmatch expires in 3 days at 12 midnight. Redraw patient at that time. Performed By: #### T&S #### [place] [address] HGB Collected: 01/24/2018 Status: F Source: [facility] 11:39 AM HEALTH SYSTEM REPOSITORY TYPE CODE TESTS RESULT OUT OF RANGE REFERENCE UNITS LAB HGBI(LOINC) 13.7-17.5 g/dL Low Hgb 7.9 Performed By: #### HGBI #### [place] [address] ALLIED HEALTH Observed: 01/24/2018 Status: COMPLETED Source: [facility] 11:25 AM CLINIC OTHER CAMPUS REPOSITORY HNO ID: [id number] Author: Chaplain Serna (Chaplain) Service: Spiritual Care Author Type: Agency Owner Type: Allied Health Filed: 01/24/2018 11:45 AM Note Text: SPIRITUALCARE Spiritual Care Visit- Brief Note Name: Naveen Akins Date: January 24, 2018 Notes: attempted to check in w/pt's fam--everyone was asleep except for his dtr, who was on the phone--we made eye contact and acknowledged one another.SC will continue to follow as needed. Signature: Chaplain Daphne To contact the [facility] Department: Please call [phone] or Page the On-Call at pager [phone] Thank you for the opportunity to be of service. This is an electronically created document. IF PRINTED, PLEASE DO NOT REMOVE FROM THE CHART OR MODIFY PRINTED COPY. NUTRITION Observed: 01/24/2018 Status: COMPLETED Source: [facility] 11:[address] [facility] OTHER CAMPUS REPOSITORY O ID: [id number] Author: Viry Mosher RD Service: NST-Nutrition Support [...] 1.5 at 50-60 cc/hr is goal--> provides 2243-7075 calories and 113-135 pro , currently at [...] 1655 PREALB 18.6* Viry Mosher RD, LD, [facility] Pager: [phone] Increments: 3 PROGRESS Observed: 01/24/2018 Status: COMPLETED Source: [facility] 10:45 AM CLINIC OTHER CAMPUS REPOSITORY HNO ID: [id number] Author: Dorcas Palafox Service: Critical Care Author [...] 24, 2018 TIME: 10:47 AM PAGER/CONTACT #: [phone] CASE MANAGEM Observed: 01/24/2018 Status: COMPLETED Source: [facility] 10:44 AM CLINIC OTHER CAMPUS REPOSITORY HNO ID: [id number] Author: Steve (Rn) MAGALY Rivera Service: Care [...] 24, 2018 TIME: 10:44 AM PAGER/CONTACT #: [phone] BLOOD GAS ARTERIAL Collected: 01/24/2018 Status: F Source: [facility] 10:30 AM HEALTH SYSTEM REPOSITORY TYPE CODE [...] -2.4 Performed By: #### ABG #### [facility] [address] [address] ALLIED HEALTH Observed: 01/24/2018 Status: COMPLETED Source: [facility] 10:20 AM [facility] REPOSITORY HNO ID: [id number] Author: Chaplain Serna (Chaplain) Service: Spiritual Care Author Type: Agency Owner Type: Allied Health Filed: 01/24/2018 10:46 AM Note Text: SPIRITUALCARE Spiritual Care Visit- Brief Note Name: Naveen Akins Date: January 24, 2018 Notes: Stopped by pt's rm; pt's omid clements w/staff. Silent prayer outside door. Will follow up w/fam/pt later on. Agency Owner Signature: Chaplain Daphne To contact the Spiritual Care Department: Please call [phone] or Page the On-Call Agency Owner at pager [phone] Thank you for the opportunity to be of service. This is an electronically created document. IF PRINTED, PLEASE DO NOT REMOVE FROM THE CHART OR MODIFY PRINTED COPY. PROGRESS Observed: 01/24/2018 Status: COMPLETED Source: [facility] 10:01 AM [facility] REPOSITORY HNO ID: [id number] Author: Paulo Lovelace (Cns) Service: Critical Care [...] 35 minutes excluding procedures. SIGNATURE: Paulo Lovelace APRN.MODEL BUILDER PATIENT NAME: Naveen Akins DATE: January 24, 2018 TIME: 10:02 AM PROGRESS Observed: 01/24/2018 Status: COMPLETED Source: [facility] 9:[address] [facility] OTHER [facility] REPOSITORY O ID: [id number] Author: Venkat Paniagua Service: Vascular Surgery Author Type: Physician Type: Progress Notes Filed: 01/24/2018 3:31 PM Note Text: Vascular Surgery Progress Note SERVICE DATE: 01/24/2018 Vascular AND Thoracic Surgery Service Pager: For questions or concerns Mon-Fri 6a-5p please page [phone]. After 5pm and on Weekends and Holidays, [...] 0659 01/24/18 07 - 01/25/18 0659 Shift 5673-3682 0169-9992 0458-7413 24 Hour Total 8189-5318 7475-0165 6252-2537 24 Hour Total I N T A [...] x 0 x 0 x Dialysis 1434 185 551 3412 93 93 Dialysis Output (Ultrafiltration) 1434 208 982 1033 93 93 Shift Total 1434 310 610 2181 93 93 Weight (kg) 86.2 86.2 83.6 [...] Noted - Ruptured abdominal aortic aneurysm (AAA) ([facility]) 01/12/2018 - Obesity, Class I, BMI 30-34.9 01/16/2018 - Encephalopathy 01/13/2018 - DIC (disseminated intravascular coagulation) ([facility]) 01/12/2018 - Hemorrhagic shock ([facility]) 01/12/2018 - Acute respiratory failure ([facility]) 01/12/2018 - Cardiac arrest ([facility]) 01/12/2018 - Hypernatremia 01/12/2018 - Hypokalemia 01/12/2018 - Hypomagnesemia 01/12/2018 - Hypophosphatemia 01/12/2018 - Hyperchloremia 01/12/2018 - AAA (abdominal aortic aneurysm, ruptured) ([facility]) 01/12/2018 Overview Note: Added automatically from request for surgery [id number] 77 year old male with Ruptured AAA [...] OF CARE Observed: 01/24/2018 Status: COMPLETED Source: [facility] 8:02 AM CLINIC OTHER CAMPUS REPOSITORY HNO ID: [id number] Author: Dorie Schofield (Pharmacist) Service: Pharmacy Author Type: Pharmacist Type: Plan of Care Filed: 01/26/2018 3:33 PM Note Text: MEDICATION HISTORY AND MEDICATION RECONCILIATION Patient Name:.Naveen Akins : 1940 Source of history:Family: Reliability of source: Only knew pharmacy he fills at ([facility] in [place]- called) Medication Nonadherence Identified: Unable to verify at this time The above information represents the best possible medication history: Yes Reconciliation completed? Yes All RECRUITING ASSOCIATE medications addressed by LIP Additional comments: Unable to discuss with Shelly (spouse) at this time. Most recent medication picked up was a 7 day course of Augmentin BID on 01/11/18. Allergies: ALLERGIES No Known Allergies Preferred Pharmacy: [facility] ([phone]) Current RECRUITING ASSOCIATE Medications: Prior to Admission medications as of [...] 1 VIEW Observed: 01/24/2018 Status: F Source: [facility] 6:12 AM HEALTH SYSTEM REPOSITORY Performed at [facility] APPROVED BY: Matt Geiger MD EXAM [...] excluded. HEMOGRAM/DIFF Collected: 01/24/2018 Status: F Source: [facility] 4:20 AM HEALTH SYSTEM REPOSITORY TYPE CODE [...] LAB MONON(LOIN 0.30-0.82 thou/cmm C) Low Abs. Luna 0.28 LAB EOSN(LOINC 0.04-0.54 thou/cmm ) Low Abs. Eosin 0.01 LAB BASON(LOIN 0.01-0.08 thou/cmm C) Abs. Baso 0.01 Result Comment: Smear scanned; tech agrees with automated differential Performed By: #### CBCD1 #### [place] [address] PROTIME Collected: 01/24/2018 Status: F Source: [facility] 4:20 AM HEALTH SYSTEM REPOSITORY TYPE CODE TESTS RESULT OUT OF REFERENCE UNITS RANGE LAB PTI(LOINC) 9.3-11.9 sec Prothrombin Time 10.6 LAB INR(LOINC) INR 1.00 Result Comment: Standard Therapy 2.0-3.0 High Dose 2.5-3.5 Performed By: #### PT #### [address] [place], [place] [address] MAGNESIUM BLOOD Collected: 01/24/2018 Status: F Source: [facility] 4:20 AM HEALTH SYSTEM REPOSITORY TYPE CODE TESTS RESULT OUT OF REFERENCE UNITS RANGE LAB MAG(LOINC) 1.6-2.6 mg/dL High Magnesium Blood 2.7 Performed By: #### MAG #### [place] [address] PHOSPHORUS BLOOD Collected: 01/24/2018 Status: F Source: [facility] 4:20 AM HEALTH SYSTEM REPOSITORY TYPE CODE TESTS RESULT OUT OF REFERENCE UNITS RANGE LAB PHOS(LOINC 2.5-4.9 mg/dL ) Phosphorus Blood 3.5 Performed By: #### PHOS #### [place] [address] BASIC PANEL Collected: 01/24/2018 Status: F Source: [facility] 4:20 AM HEALTH SYSTEM REPOSITORY TYPE CODE [...] Gap 17 Performed By: #### P8 #### [place] [address] HEPATIC PANEL Collected: 01/24/2018 Status: F Source: [facility] 4:20 AM HEALTH SYSTEM REPOSITORY TYPE CODE [...] 5.35 Performed By: #### HEPAP #### [facility] [address] [place], [place] [address] TRIGLYCERIDE BLOOD Collected: 01/24/2018 Status: F Source: [facility] 4:20 AM HEALTH SYSTEM REPOSITORY TYPE CODE TESTS RESULT OUT OF REFERENCE UNITS RANGE LAB TRIG(LOINC 0-149 mg/dL ) Triglyceride High Blood 560 Result Comment: < 200 Desirable Result invalid if not a fasting specimen. Performed By: #### TRIG #### [facility] [address] [place], [place] [address] OPERATIVE NO Observed: 01/24/2018 Status: COMPLETED Source: [facility] 12:00 AM CLINIC OTHER CAMPUS REPOSITORY O ID: [id number] Author: Venkat Paniagua Service: Vascular Surgery Author Type: Physician Type: Operative Report Filed: 01/27/2018 9:08 AM Note Text: [facility] - Operative Report SURGEON: Venkat Paniagua MD PATIENT NAME: NAVEEN AKINS CSN: [id number] DATE OF SURGERY: 01/16/2018 DATE OF : 1940 SEX/AGE: M/77 PATIENT TYPE: I HOSP SVC: LICO LOCATION: [facility] DATE OF SURGERY: 01/16/2018 SURGEON: Venkat Paniagua MD The patient is an inpatient. PREOPERATIVE DIAGNOSIS: Status post ruptured aneurysm with open abdomen. POSTOPERATIVE DIAGNOSIS: Status post ruptured aneurysm with open abdomen. PROCEDURE: Exploratory laparotomy, change of wound vacuum-assisted closure, and abdominal washout. CONSTRUCTION CONTROLLER: Kannan Felder MD and Lotus Schuler SA. [...] condition. Venkat Paniagua MD Vascular Surgery HORACEW:mika /[id number] CONSULT Observed: 01/23/2018 Status: COMPLETED Source: [facility] 10:36 PM [facility] REPOSITORY HNO ID: [id number] Author: Noel Garcia MD Service: Neurology General Author Type: Resident Type: Consults Filed: 01/25/2018 3:07 PM Note Text: Attestation signed by Brad Castillo at 02/23/2018 10:54 AM [facility] STAFF ADDENDUM Brad Castillo MD [...] goals of care,?medical plan for the day, consultant education recommendations, medical disposition and current medical condition/prognosis [...] old male transferred in critical condition from [facility] with diagnosed ruptured AAA. Patient was life-flighted to [facility], intubated at outside facility. Per transport, patient [...] GAS ARTERIAL Collected: 01/23/2018 Status: F Source: [facility] 10:35 PM HEALTH SYSTEM REPOSITORY TYPE CODE [...] -2.1 Performed By: #### ABG #### [facility] [address] [address] ABDOMEN 1 VIEW Observed: 01/23/2018 Status: F Source: [facility] 6:52 PM HEALTH SYSTEM REPOSITORY Performed at [facility] APPROVED BY: KRISTIE KHAN MD ABDOMEN [...] PROCESS. PROGRESS Observed: 01/23/2018 Status: COMPLETED Source: [facility] 6:47 PM CLINIC OTHER CAMPUS REPOSITORY HNO ID: [id number] Author: Yamel (Rn) MAGALY Young Service: Dialysis [...] RIGHT UPPER Observed: 01/23/2018 Status: F Source: [facility] 6:11 PM HEALTH SYSTEM REPOSITORY Performed at [facility] APPROVED BY: Jim Licea MD EXAM [...] GAS ARTERIAL Collected: 01/23/2018 Status: F Source: [facility] 4:55 PM HEALTH SYSTEM REPOSITORY TYPE CODE [...] -2.8 Performed By: #### ABG #### [facility] [address] [place] [address] HEMOGRAM Collected: 01/23/2018 Status: F Source: [facility] [address] SYSTEM REPOSITORY TYPE CODE TESTS RESULT [...] 12.7 Performed By: #### CBC1 #### [facility] [address] [place] [address] PREALBUMIN Collected: 01/23/2018 Status: F Source: [facility] [address] [place] [address] SYSTEM REPOSITORY TYPE CODE TESTS RESULT OUT OF REFERENCE UNITS RANGE LAB PAB(LOINC) 20.0-40.0 mg/dL Low Prealbumin 18.6 Performed By: #### PAB #### [facility] [address] [place] [id number] PROGRESS Observed: 01/23/2018 Status: COMPLETED Source: [facility] 3:18 PM CLINIC OTHER CAMPUS REPOSITORY O ID: [id number] Author: Shen Lorenzo Service: Nephrology Author Type: [...] (PRECEDEX) 0.2- 0.7 mcg/kg/hr INTRAVENOUS CONTINUOUS Paulo (Assembler For Puller Over Hand) Hudock Last Rate: 9.67 mL/hr at 01/23/18 0604 0.4 mcg/kg/hr at 01/23/18 0604 carboxymethylcellulose sodium 1-2 Drop (CELLUVISC) 1-2 Drop BOTH EYES PRN Venkat Paniagua 2 Drop at 01/22/18 2049 polyvinyl alcohol-povidone 1.4-0.6 % 1 Drop (REFRESH) 1 Drop BOTH EYES QID PRN Paulo (Assembler For Puller Over Hand) Hudock 1 Drop at 01/21/18 1641 propofol [...] 15 mL at 01/23/18 0921 No current [facility]-ordered outpatient prescriptions on file. Vitals: BP 132/57 [...] do not hesitate to contact me at [phone] if there is any question or concern. Rosanna Talbert MD (Sehn Lorenzo) CASE MANAGEM Observed: 01/23/2018 Status: COMPLETED Source: [facility] 1:00 PM CLINIC OTHER CAMPUS REPOSITORY HNO ID: [id number] Author: Lorrie (Magaly) MAGALY Bo Service: (none) [...] 23, 2018 TIME: 1:00 PM PAGER/CONTACT #: [phone] NUTRITION Observed: 01/23/2018 Status: COMPLETED Source: [facility] 12:59 PM CLINIC OTHER CAMPUS REPOSITORY HNO ID: [id number] Author: Viry Mosher RD Service: NST-Nutrition Support [...] cc/hr is goal, start at 10--> provides 0843-2967 calories and 113-135 pro Diprivan @ 10 [...] -- 7.2* Viry Mosher RD, LD Pager: [phone] Increments: 3 BLOOD GAS ARTERIAL Collected: 01/23/2018 Status: F Source: [facility] 12:50 PM HEALTH SYSTEM REPOSITORY TYPE CODE [...] 40 Performed By: #### ABG #### [facility] [address] [place], [place] [address] PROGRESS Observed: 01/23/2018 Status: COMPLETED Source: [facility] 10:37 AM CLINIC OTHER CAMPUS REPOSITORY HNO ID: [id number] Author: Dorcas Palafox Service: Critical Care Author [...] 23, 2018 TIME: 10:38 AM PAGER/CONTACT #: [phone] PROTIME Collected: 01/23/2018 Status: F Source: [facility] 10:20 AM HEALTH SYSTEM REPOSITORY TYPE CODE TESTS RESULT OUT OF REFERENCE UNITS RANGE LAB PTI(LOINC) 9.3-11.9 sec Prothrombin Time 10.0 LAB INR(LOINC) INR 0.93 Result Comment: Standard Therapy 2.0-3.0 High Dose 2.5-3.5 Performed By: #### PT #### [place] [address] ACTIVATED PTT Collected: 01/23/2018 Status: F Source: [facility] 10:20 AM HEALTH SYSTEM REPOSITORY TYPE CODE TESTS RESULT OUT OF REFERENCE UNITS RANGE LAB APTT(LOINC 22.0-34.0 sec ) Activated PTT 23.9 Performed By: #### APTT #### [place] [address] ALLIED HEALTH Observed: 01/23/2018 Status: COMPLETED Source: [facility] 8:03 AM CLINIC OTHER CAMPUS REPOSITORY O ID: [id number] Author: Chaplain Will (Chaplain) Service: Spiritual Care Author Type: Agency Owner Type: Allied Health Filed: 01/23/2018 8:04 AM Note Text: SPIRITUALCARE Spiritual Care Visit- Brief Note Name: Naveen Akins Date: January 23, 2018 Notes: Per request of patient's family I prayed for the patient this morning. Agency Owner Signature: Chaplain Suman To contact the Spiritual Care Department: Please call [phone] or Page the On-Call Agency Owner at pager [phone] Thank you for the opportunity to be of service. This is an electronically created document. IF PRINTED, PLEASE DO NOT REMOVE FROM THE CHART OR MODIFY PRINTED COPY. PROGRESS Observed: 01/23/2018 Status: COMPLETED Source: [facility] 6:23 AM [facility] REPOSITORY O ID: [id number] Author: Dionicio Stevens Service: Vascular Surgery Author [...] questions or concerns Tue-Tue 6a-5p please page [phone]. After 5pm and on Weekends and Holidays, [...] 0659 01/23/18 0700 - 01/24/18 0659 Shift 0210-1448 0339-1095 2656-3162 24 Hour Total 0085-8328 4195-8156 7732-5910 24 Hour Total I N T A K E IV 581 224 805 NS 0.9% 30 53 83 Calcium IVPB 250 250 Fentanyl Volume 33 14 47 Dexmedetomidine IV 110 47 157 NORepinephrine Volume 21 8 29 Propofol IV 37 2 39 Ampicillin/Sulbactam (Unasyn) IV 100 100 200 TPN/PPN 503 324 827 TPN 503 324 827 Shift Total 0613 762 7657 O U T P U T Drains 10 10 Negative Pressure: Output (mL) (Negative Pressure Wound Therapy 01/12/18 0749 Abdomen) 10 10 Dialysis 1452 8707 237 1723 Dialysis Output (Ultrafiltration) 1452 7493 039 7002 Shift Total 1452 4791 195 9202 Weight (kg) 89 89 86.2 86.2 86.2 [...] Noted - Ruptured abdominal aortic aneurysm (AAA) ([facility]) 01/12/2018 - Obesity, Class I, BMI 30-34.9 01/16/2018 - Encephalopathy 01/13/2018 - DIC (disseminated intravascular coagulation) ([facility]) 01/12/2018 - Hemorrhagic shock ([facility]) 01/12/2018 - Acute respiratory failure ([facility]) 01/12/2018 - Cardiac arrest ([facility]) 01/12/2018 - Hypernatremia 01/12/2018 - Hypokalemia 01/12/2018 - Hypomagnesemia 01/12/2018 - Hypophosphatemia 01/12/2018 - Hyperchloremia 01/12/2018 - AAA (abdominal aortic aneurysm, ruptured) ([facility]) 01/12/2018 Overview Note: Added automatically from request for surgery [id number] 77 year old male with Ruptured AAA [...] 1 VIEW Observed: 01/23/2018 Status: F Source: [facility] 5:41 AM HEALTH SYSTEM REPOSITORY Performed at [facility] APPROVED BY: Yajaira Veroniac MD EXAM TITLE: CHEST 1 VIEW DATE: 01/23/2018 05:36 INDICATION: Respiratory failure COMPARISON: 01/22/2018 FINDINGS: The ETT, NGT, and bilateral central venous catheters are stable. Since the previous exam, there has been slight improvement in bilateral infiltrates. Stable small left pleural effusion. Heart is not enlarged. IMPRESSION: Slight improvement in bilateral infiltrates. BASIC PANEL Collected: 01/23/2018 Status: F Source: [facility] 4:35 AM HEALTH SYSTEM REPOSITORY TYPE CODE [...] Gap 16 Performed By: #### P8 #### [place] [address] HEPATIC PANEL Collected: 01/23/2018 Status: F Source: [facility] 4:35 AM HEALTH SYSTEM REPOSITORY TYPE CODE [...] Bilirubin 6.44 Performed By: #### HEPAP #### [place] [address] HEMOGRAM/DIFF Collected: 01/23/2018 Status: F Source: [facility] 4:35 AM HEALTH SYSTEM REPOSITORY TYPE CODE [...] LAB MONON(LOIN 0.30-0.82 thou/cmm C) Low Abs. Luna 0.28 LAB EOSN(LOINC 0.04-0.54 thou/cmm ) Low Abs. Eosin 0.00 LAB BASON(LOIN 0.01-0.08 thou/cmm C) Abs. Baso 0.02 Performed By: #### CBCD1 #### [facility] [address] [place], [place] [address] ALLIED HEALTH Observed: 01/22/2018 Status: COMPLETED Source: [facility] 10:55 PM CLINIC OTHER CAMPUS REPOSITORY HNO ID: [id number] Author: Gladys Salas) Chaplain Zeb Service: Spiritual Care Author Type: Agency Owner Type: Allied Health Filed: 01/23/2018 5:39 AM Note Text: SPIRITUALCARE Spiritual Care Visit- Brief Note Name: Naveen Akins Date: January 23, 2018 Notes: Patient's family in 3rd floor waiting room and requested prayer. Patient's mother, sisters and son. Follow up needed. Agency Owner Signature: Chaplain Suman To contact the Spiritual Care Department: Please call [phone] or Page the On-Call Agency Owner at pager [phone] Thank you for the opportunity to be of service. This is an electronically created document. IF PRINTED, PLEASE DO NOT REMOVE FROM THE CHART OR MODIFY PRINTED COPY. BLOOD GAS ARTERIAL Collected: 01/22/2018 Status: F Source: [facility] 10:35 PM HEALTH SYSTEM REPOSITORY TYPE CODE [...] -3.0 Performed By: #### ABG #### [facility] [address] [place] [address] BLOOD GAS ARTERIAL Collected: 01/22/2018 Status: F Source: [facility] 6:00 HEALTH SYSTEM REPOSITORY TYPE CODE TESTS [...] 75.0 Performed By: #### ABG #### [facility] [address] [place] [id number] RENAL PANEL Collected: 01/22/2018 Status: F Source: [facility] 6:00 HEALTH SYSTEM REPOSITORY TYPE CODE TESTS [...] 4.4 Performed By: #### RENAL #### [facility] [address] [place] [id number] MAGNESIUM BLOOD Collected: 01/22/2018 Status: F Source: [facility] 6:00 PM HEALTH SYSTEM REPOSITORY TYPE CODE TESTS RESULT OUT OF REFERENCE UNITS RANGE LAB MAG(LOINC) 1.6-2.6 mg/dL High Magnesium Blood 2.8 Performed By: #### MAG #### [facility] [address] [place] [address] HEMOGRAM Collected: 01/22/2018 Status: F Source: [facility] 6:00 PM HEALTH SYSTEM REPOSITORY TYPE CODE [...] Absolute Performed By: #### CBC1 #### [facility] [address] [place] [id number] PROGRESS Observed: 01/22/2018 Status: COMPLETED Source: [facility] 4:16 PM CLINIC OTHER CAMPUS REPOSITORY HNO ID: [id number] Author: Costa Miguel Service: Gastroenterology Surgery Author Type: Physician Type: Progress Notes Filed: 01/22/2018 4:17 PM Note Text: Wound without issue. Further care per primary service. Costa Miguel MD, FACS, [facility] BLOOD GAS ARTERIAL Collected: 01/22/2018 Status: F Source: [facility] 1:30 PM HEALTH SYSTEM REPOSITORY TYPE CODE [...] Excess -3.1 Performed By: #### ABG #### [place] [address] MAGNESIUM BLOOD Collected: 01/22/2018 Status: F Source: [facility] 1:30 PM HEALTH SYSTEM REPOSITORY TYPE CODE TESTS RESULT OUT OF REFERENCE UNITS RANGE LAB MAG(LOINC) 1.6-2.6 mg/dL High Magnesium Blood 2.8 Performed By: #### MAG #### [place] [address] PROGRESS Observed: 01/22/2018 Status: COMPLETED Source: [facility] 11:07 AM CLINIC OTHER CAMPUS REPOSITORY O ID: [id number] Author: Herman Sutton Service: Critical Care Author [...] AM PROGRESS Observed: 01/22/2018 Status: COMPLETED Source: [facility] 9:35 AM CLINIC OTHER CAMPUS REPOSITORY HNO ID: [id number] Author: Vicky Devi MD Service: Nephrology Author [...] 1 VIEW Observed: 01/22/2018 Status: F Source: [facility] 6:29 AM HEALTH SYSTEM REPOSITORY Performed at [facility] APPROVED BY: Matt Geiger MD EXAM [...] pneumonia. PROGRESS Observed: 01/22/2018 Status: COMPLETED Source: [facility] 6:[address] [facility] OTHER CAMPUS REPOSITORY HNO ID: [id number] Author: Dionicio (Edenilson) Rodney Service: Vascular Surgery Author Type: Resident Type: Progress Notes Filed: 01/22/2018 8:19 AM Note Text: Attestation signed by Марина De Anda at 01/22/2018 10:32 AM [facility] STAFF PHYSICIAN NOTE OF PERSONAL [...] questions or concerns Mon-Tue 6a-5p please page [phone]. After 5pm and on Weekends and Holidays, please page [phone] if in ICU or [phone] if on [...] 0659 01/22/18 07 - 01/23/18 0659 Shift 8747-5390 7150-9349 5495-7218 24 Hour Total 6388-4500 9660-6077 8855-7887 24 Hour Total I N T A [...] Feed/Drain 01/12/18 0100) 30 30 Dialysis 1769 2405 913 3908 Dialysis Output (Ultrafiltration) 1769 6102 351 8622 Shift Total 1874 8830 184 1862 Weight (kg) 94.1 94.1 94.1 94.1 94.1 [...] Noted - Ruptured abdominal aortic aneurysm (AAA) ([facility]) 01/12/2018 - Obesity, Class I, BMI 30-34.9 01/16/2018 - Encephalopathy 01/13/2018 - DIC (disseminated intravascular coagulation) ([facility]) 01/12/2018 - Hemorrhagic shock ([facility]) 01/12/2018 - Acute respiratory failure ([facility]) 01/12/2018 - Cardiac arrest ([facility]) 01/12/2018 - Hypernatremia 01/12/2018 - Hypokalemia 01/12/2018 - Hypomagnesemia 01/12/2018 - Hypophosphatemia 01/12/2018 - Hyperchloremia 01/12/2018 - AAA (abdominal aortic aneurysm, ruptured) ([facility]) 01/12/2018 Overview Note: Added automatically from request for surgery [id number] 77 year old male with Ruptured AAA [...] MAGNESIUM BLOOD Collected: 01/22/2018 Status: F Source: [facility] 4:20 AM [facility] SYSTEM REPOSITORY TYPE CODE TESTS RESULT OUT OF REFERENCE UNITS RANGE LAB MAG(LOINC) 1.6-2.6 mg/dL High Magnesium Blood 2.9 Performed By: #### MAG #### [place] [address] PHOSPHORUS BLOOD Collected: 01/22/2018 Status: F Source: [facility] 4:20 AM HEALTH SYSTEM REPOSITORY TYPE CODE TESTS RESULT OUT OF REFERENCE UNITS RANGE LAB PHOS(LOINC 2.5-4.9 mg/dL ) Phosphorus Blood 4.4 Performed By: #### PHOS #### [place] [address] HEMOGRAM/DIFF Collected: 01/22/2018 Status: F Source: [facility] 4:20 AM HEALTH SYSTEM REPOSITORY TYPE CODE [...] 0.61 LAB MONON(LOIN 0.30-0.82 thou/cmm C) Abs. Luna 0.31 LAB EOSN(LOINC 0.04-0.54 thou/cmm ) Low Abs. Eosin 0.00 LAB BASON(LOIN 0.01-0.08 thou/cmm C) Abs. Baso 0.02 Result Comment: Smear scanned; tech agrees with automated differential Performed By: #### CBCD1 #### [address] [address] BASIC PANEL Collected: 01/22/2018 Status: F Source: [facility] 4:20 AM HEALTH SYSTEM REPOSITORY TYPE CODE [...] 18 Performed By: #### P8 #### [facility] [address] [place] [address] BLOOD GAS ARTERIAL Collected: 01/21/2018 Status: F Source: [facility] 10:24 PM HEALTH SYSTEM REPOSITORY TYPE CODE [...] Excess -4.0 Performed By: #### ABG #### [place] [address] BLOOD GAS ARTERIAL Collected: 01/21/2018 Status: F Source: [facility] 4:10 PM HEALTH SYSTEM REPOSITORY TYPE CODE [...] Excess -5.3 Performed By: #### ABG #### [place] [address] HEMOGRAM Collected: 01/21/2018 Status: F Source: [facility] 4:09 PM HEALTH SYSTEM REPOSITORY TYPE CODE [...] 0.18 Absolute Performed By: #### CBC1 #### [place] [id number] PROGRESS Observed: 01/21/2018 Status: COMPLETED Source: [facility] 12:47 PM CLINIC OTHER CAMPUS REPOSITORY HNO ID: [id number] Author: Tracey (Rn) MAGALY De La Fuente Service: Dialysis Author Type: Registered Nurse Type: Progress Notes Filed: 01/21/2018 12:49 PM Note Text: CRRT restarted using same orders after pt returned form OR. M100 dialyzer. Access via left neck temp HD cath. starting TMP 101. Report to Jose LYMAN POST Observed: 01/21/2018 Status: COMPLETED Source: [facility] 12:05 PM CLINIC OTHER CAMPUS REPOSITORY HNO ID: [id number] Author: Tim Tabor Service: Anesthesiology Author Type: [...] 1070 PROGRESS Observed: 01/21/2018 Status: COMPLETED Source: [facility] 12:01 PM CLINIC OTHER CAMPUS REPOSITORY O ID: [id number] Author: Paulo Lovelace (Cns) Service: Critical Care [...] 30 minutes excluding procedures. SIGNATURE: Paulo Lovelace APRN.MODEL BUILDER PATIENT NAME: Naveen Akins DATE: January 21, 2018 TIME: 12:01 PM BRIEF OP NOT Observed: 01/21/2018 Status: COMPLETED Source: [facility] 11:[address] [facility] OTHER CAMPUS REPOSITORY O ID: [id number] Author: Tristen Luz Service: General Surgery Author Type: Resident Type: Brief Op Note Filed: 01/21/2018 11:30 AM Note Text: Attestation signed by Costa Miguel at 01/21/2018 1:32 PM I was present for the critical and coleman portions of the surgery and I was immediately available to provide assistance. Costa Miguel MD, [facility], [facility] BRIEF OPERATIVE / PROCEDURE NOTE LOG ID: [id number] SURGERY/PROCEDURE DATE: 01/21/2018 INCISION/PROCEDURE START TIME: 10:43 AM INCISION CLOSE/PROCEDURE END TIME: 11:17 AM SURGEON(S)/PROCEDURALIST(S) AND CONSTRUCTION CONTROLLER(S): Surgeon(s) and Role: * Costa Miguel - [...] VIEW IN Observed: 01/21/2018 Status: F Source: [facility] 11:15 AM HEALTH SYSTEM REPOSITORY Performed at [facility] APPROVED BY: Matt Geiger MD EXAM [...] ANES PREOP Observed: 01/21/2018 Status: COMPLETED Source: [facility] 10:[address] [facility] OTHER CAMPUS REPOSITORY HNO ID: [id number] Author: Tim Tabor Service: Anesthesiology Author Type: [...] mL (PRECEDEX) 0.2-0.7 mcg/kg/hr INTRAVENOUS CONTINUOUS Paulo (Assembler For Puller Over Hand) Radu Last Rate: 9.67 mL/hr at 01/21/18 [...] 1 Drop BOTH EYES QID PRN Paulo (Assembler For Puller Over Hand) Radu 1 Drop at 01/19/182314 [MAR Hold [...] January 21, 2018 TIME: 10:10 AM CSN: [id number] PROGRESS Observed: 01/21/2018 Status: COMPLETED Source: [facility] 9:35 AM CLINIC OTHER CAMPUS REPOSITORY HNO ID: [id number] Author: Vicky Devi MD Service: Nephrology Author [...] MD PROGRESS Observed: 01/21/2018 Status: COMPLETED Source: [facility] 9:[address] [facility] OTHER CAMPUS REPOSITORY HNO ID: [id number] Author: Herman Sutton Service: Critical Care Author [...] AM CLINIC OTHER CAMPUS REPOSITORY HNO ID: [id number] Author: Dionicio (Res) Rodney Service: Vascular Surgery [...] - 01/21/1865801/21/18 07 - 01/22/18 0659 Shift 6595-2561 1447-9141 6539-5415 24 Hour Total 3077-0663 2868-5435 4539-9644 24 Hour Total I N T A K E IV 37 138 539.9 714.9 NS 0.9% 10 31 57 98 Fentanyl Volume 5 23.5 61.5 90 Dexmedetomidine IV 25.5 75 100.5 NORepinephrine Volume 3 30 73.4 106.4 Propofol IV 19 28 73 120 Ampicillin/Sulbactam (Unasyn) IV 200 200 TPN/PPN 103 237 520 860 TPN 103 237 520 860 Shift Total 198 516 3665.9 1574.9 O U T P U T Urine Urine Incontinence/Not Saved 2 x 2 x Tubes 100 6873 171 4017 Drain/Tube Output (Drain/Tube 01/19/18 1015 Midline Abdomen) 50 589 084 2890 Drain/Tube Output (Drain/Tube 01/12/18 Fecal Management System) [...] Noted - Ruptured abdominal aortic aneurysm (AAA) ([facility]) 01/12/2018 - Obesity, Class I, BMI 30-34.9 01/16/2018 - Encephalopathy 01/13/2018 - DIC (disseminated intravascular coagulation) ([facility]) 01/12/2018 - Hemorrhagic shock ([facility]) 01/12/2018 - Acute respiratory failure ([facility]) 01/12/2018 - Cardiac arrest ([facility]) 01/12/2018 - Hypernatremia 01/12/2018 - Hypokalemia 01/12/2018 - Hypomagnesemia 01/12/2018 - Hypophosphatemia 01/12/2018 - Hyperchloremia 01/12/2018 - AAA (abdominal aortic aneurysm, ruptured) ([facility]) 01/12/2018 Overview Note: Added automatically from request for surgery [id number] 77 year old male with Ruptured AAA [...] 1 VIEW Observed: 01/21/2018 Status: F Source: [facility] 5:19 AM CMP.LY SYSTEM REPOSITORY Performed at [facility] APPROVED BY: Ji Duarte MD Exam: Portable view of the chest dated 01/21/2018 05:10. Indication: Respiratory Failure. Comparison: 01/20/2018. Findings: Support devices remain unchanged. Parenchymal consolidation and small left pleural effusion are grossly similar to prior study. No visible pneumothorax. Cardiac and mediastinal contours remain unchan ged. No acute osseous abnormalities are appreciated. IMPRESSION: Stable portable chest. HEMOGRAM/DIFF Collected: 01/21/2018 Status: F Source: [facility] 4:30 AM HEALTH SYSTEM REPOSITORY TYPE CODE [...] 0.80 LAB MONON(LOIN 0.30-0.82 thou/cmm C) Abs. Luna 0.53 LAB EOSN(LOINC 0.04-0.54 thou/cmm ) Low Abs. Eosin 0.02 LAB BASON(LOIN 0.01-0.08 thou/cmm C) Abs. Baso 0.04 Result Comment: Smear scanned; tech agrees with automated differential Performed By: #### CBCD1 #### [place] [address] MAGNESIUM BLOOD Collected: 01/21/2018 Status: F Source: [facility] 4:30 AM [facility] SYSTEM REPOSITORY TYPE CODE TESTS RESULT OUT OF REFERENCE UNITS RANGE LAB MAG(LOINC) 1.6-2.6 mg/dL High Magnesium Blood 2.7 Performed By: #### MAG #### [place] [address] PHOSPHORUS BLOOD Collected: 01/21/2018 Status: F Source: [facility] 4:30 AM [facility] SYSTEM REPOSITORY TYPE CODE TESTS RESULT OUT OF REFERENCE UNITS RANGE LAB PHOS(LOINC 2.5-4.9 mg/dL ) Phosphorus Blood 4.0 Performed By: #### PHOS #### [facility] [address] [place], [place] [address] BASIC PANEL Collected: 01/21/2018 Status: F Source: [facility] 4:30 AM HEALTH SYSTEM REPOSITORY TYPE CODE [...] 14 Performed By: #### P8 #### [facility] [address] [place], [place] [address] OPERATIVE NO Observed: 01/21/2018 Status: COMPLETED Source: [facility] 12:00 AM CLINIC OTHER CAMPUS REPOSITORY O ID: [id number] Author: Costa Miguel Service: Gastroenterology Surgery Author Type: Physician Type: Operative Report Filed: 01/22/2018 1:54 PM Note Text: [facility] - Operative Report SURGEON: Costa Miguel MD PATIENT NAME: NAVEEN AKINS CSN: [id number] DATE OF SURGERY: 01/21/2018 DATE OF : 1940 SEX/AGE: M/77 PATIENT TYPE: I HOSP SV: LICO LOCATION: [id number] DATE OF SURGERY: 01/21/2018 SURGEON: Costa Miguel MD PREOPERATIVE DIAGNOSIS: Open abdomen. POSTOPERATIVE DIAGNOSIS: Open abdomen. PROCEDURE: Limited abdominal exploration and closure of wound with abdominal wound with retention sutures. CONSTRUCTION CONTROLLER: Dr. Peralta and Dr. Tristen Luz. ANESTHESIA: [...] procedure well. Costa Miguel MD Surgery WJC:modl /[id number] BLOOD GAS ARTERIAL Collected: 01/20/2018 Status: F Source: [facility] 10:10 PM HEALTH SYSTEM REPOSITORY TYPE CODE [...] -4.0 Performed By: #### ABG #### [facility] [address] [place] [address] BLOOD GAS ARTERIAL Collected: 01/20/2018 Status: F Source: [facility] 4:20 PM HEALTH SYSTEM REPOSITORY TYPE CODE [...] -4.1 Performed By: #### ABG #### [facility] [address] [place] [address] HEMOGRAM Collected: 01/20/2018 Status: F Source: [facility] 4:20 PM HEALTH SYSTEM REPOSITORY TYPE CODE [...] Absolute Performed By: #### CBC1 #### [facility] [address] [place] [address] US THORACENTESIS WITH Observed: 01/20/2018 Status: F Source: [facility] IMAGING GUIDANCE [address] 2:53 PM HEALTH SYSTEM REPOSITORY Performed at [facility] APPROVED BY: Cely Correa CNP EXAM TITLE: ULTRASOUND GUIDED RIGHT THORACENTESIS DATE: 01/20/2018 14:00 COMPARISON: Chest x-ray dated 01/20/2018 CLINICAL INDICATION/HISTORY: Bilateral pleural effusions TECHNIQUE: Informed consent was obtained from the patient's . The patient was placed in a lateral recumbent position and ultrasound interrogated the right hemithorax. An appropriate skin entrance site was identified, prepped, and anesthetized. Under ultrasound guidance a 5-Spanish Yueh needle was passed into the pleural [...] 1 VIEW Observed: 01/20/2018 Status: F Source: [facility] 2:52 PM HEALTH SYSTEM REPOSITORY Performed at [facility] APPROVED BY: Skip Hickey MD EXAM [...] OP NOT Observed: 01/20/2018 Status: COMPLETED Source: [facility] 2:31 PM CLINIC OTHER CAMPUS REPOSITORY HNO ID: [id number] Author: Celychucky Correa Service: (none) Author Type: Nurse Practitioner Type: Brief Op Note Filed: 01/20/2018 2:32 PM Note Text: THORACENTESIS NOTE SERVICE DATE: 01/20/2018 SERVICE TIME: 2:15 PM PROCEDURE: Right thoracentesis with Ultrasound guidance PLUMBER PIPE FITTING: Cely Correa APRN.CNP CONSTRUCTION CONTROLLER: None PRE - PROCEDURE DIAGNOSIS: Pleural effusion [...] CELL COUNT/DIFF Collected: 01/20/2018 Status: F Source: [facility] 2:25 PM HEALTH SYSTEM REPOSITORY TYPE CODE [...] malignant cells. Performed By: #### BFCD #### [place] [address] PH, BODY FLUID Collected: 01/20/2018 Status: F Source: [facility] 2:25 PM [facility] SYSTEM REPOSITORY TYPE CODE TESTS RESULT OUT OF REFERENCE UNITS RANGE LAB BFTYP(LOIN C) Specimen Type Pleural LAB PHBFL(LOIN C) pH, Body Fluid 7.560 Performed By: #### PHBF #### [place] [address] Observed: 01/20/2018 Status: F Source: [facility] 2:25 PM HEALTH SYSTEM FLUID REPOSITORY Test performed at [facility] No growth No organisms seen Performed By: #### C_BF #### [place] [address] MISC. TEST Collected: 01/20/2018 Status: F Source: [facility] 2:25 PM HEALTH SYSTEM REPOSITORY TYPE CODE [...] document C49A. WILLIE Pacheco: Clinical Laboratory Standards [place]: 2007. This test was developed and its performance characteristics determined by [facility]'s [facility] Pathology and Laboratory Medicine [place] ([facility] It has not been cleared or approved by the FDA. -[facility] is regulated under CLIA as qualified to perform high-complexity testing. This test is used for clinical purposes. It should not be regarded as investigational or for research. Performing Laboratory: [facility] [address] [place] [address] Performed By: #### GOX #### [place] [address] Observed: 01/20/2018 Status: F Source: [facility] [employer] 2:25 PM HEALTH SYSTEM (TB) REPOSITORY Test performed at [facility] No acid fast bacilli cultured No acid fast bacilli seen Performed By: #### C_AFB #### [place] [address] Observed: 01/20/2018 Status: F [facility]: [facility] 2:25 PM HEALTH SYSTEM REPOSITORY Test performed at [facility] No fungus (yeast or mold) cultured Performed By: #### C_FUN #### [place] [address] CYTOLOGY, MEDICAL Observed: 01/20/2018 Status: F Source: [facility] 2:25 PM HEALTH SYSTEM REPOSITORY Test performed at [place] [address] NAME: NAVEEN AKINS REQUESTING: VENKAT PANIAGUA M.D. [...] of 1 Performed By: #### CYTOM #### [place] [address] PROGRESS Observed: 01/20/2018 Status: COMPLETED Source: [facility] 1:29 PM CLINIC OTHER CAMPUS REPOSITORY HNO ID: [id number] Author: Pauol Lovelace (Cns) Service: Critical Care Author Type: [...] GAS ARTERIAL Collected: 01/20/2018 Status: F Source: [facility] 10:50 AM HEALTH SYSTEM REPOSITORY TYPE CODE [...] FIO2 90 Performed By: #### ABG #### [place] [address] HEMOGRAM Collected: 01/20/2018 Status: F Source: [facility] 10:50 AM HEALTH SYSTEM REPOSITORY TYPE CODE [...] 0.16 Performed By: #### CBC1 #### [facility] [address] [place] [address] CASE MANAGEM Observed: 01/20/2018 Status: COMPLETED Source: [facility] 10:31 AM [facility] REPOSITORY HNO ID: [id number] Author: Fifi TylerRn) MAGALY Coker Service: Care Management Author Type: Registered Nurse Type: Care Mgt Progress Note Filed: 01/20/2018 10:31 AM Note Text: Cont to followto assst with discharge plan. Plan for OR on Sat. 01/21 for attempted closure of surgical wound. PROGRESS Observed: 01/20/2018 Status: COMPLETED Source: [facility] 10:12 AM CLINIC OTHER [facility] REPOSITORY HNO ID: [id number] Author: Troy Godoy Service: Nephrology Author Type: [...] reviewed PROGRESS Observed: 01/20/2018 Status: COMPLETED Source: [facility] 9:[address] [facility] OTHER CAMPUS REPOSITORY [facility] ID: [id number] Author: Herman Sutton Service: Critical Care Author [...] AM PROGRESS Observed: 01/20/2018 Status: COMPLETED Source: [facility] 8:49 AM [facility] REPOSITORY [facility] ID: [id number] Author: Hermelinda Ferrell Service: General Surgery Author Type: Resident Type: Progress Notes Filed: 01/20/2018 8:53 AM Note Text: Attestation signed by Costa Miguel at 01/20/2018 1:35 PM I saw and evaluated the patient. I reviewed the resident's note and agree. Costa Miguel MD, FACS, [facility] EGS PROGRESS NOTES SERVICE DATE: 01/20/2018 Subjective [...] 01/20/18 0659 01/20/18699 - 01/21/18 0659 Shift 4219-2764 7908-0339 9909-2377 24 Hour Total 7687-2422 0375-3583 4559-4859 24 Hour Total I N T A K E IV 6960 338 4062 37 37 IVPB 79 79 NS 0.9% 756 41 797 10 10 Calcium IVPB 147 147 Fentanyl Volume 54 25 79 5 5 Dexmedetomidine IV 45 45 NORepinephrine Volume 78 50 128 3 3 Propofol IV 159 208 367 19 19 Ampicillin/Sulbactam (Unasyn) IV 100 200 300 TPN/PPN 7344 297 2357 103 103 TPN 7355 074 9344 103 103 Shift Total 2868 1313 4181 [...] Noted - Ruptured abdominal aortic aneurysm (AAA) ([facility]) 01/12/2018 - Obesity, Class I, BMI 30-34.9 01/16/2018 - Encephalopathy 01/13/2018 - DIC (disseminated intravascular coagulation) ([facility]) 01/12/2018 - Hemorrhagic shock ([facility]) 01/12/2018 - Acute respiratory failure ([facility]) 01/12/2018 - Cardiac arrest ([facility]) 01/12/2018 - Hypernatremia 01/12/2018 - Hypokalemia 01/12/2018 - Hypomagnesemia 01/12/2018 - Hypophosphatemia 01/12/2018 - Hyperchloremia 01/12/2018 - AAA (abdominal aortic aneurysm, ruptured) ([facility]) 01/12/2018 Overview Note: Added automatically from request for surgery [id number] 77 year old male with Ruptured AAA [...] NURSING PROG Observed: 01/20/2018 Status: COMPLETED Source: [facility] 6:31 AM CLINIC OTHER CAMPUS REPOSITORY O ID: [id number] Author: Abbi (Rn) MAGALY Meneses Service: Nursing [...] xray. PROGRESS Observed: 01/20/2018 Status: COMPLETED Source: [facility] 6:23 AM CLINIC OTHER CAMPUS REPOSITORY HNO ID: [id number] Author: Dionicio (Luther Stevens Service: Vascular Surgery [...] 0659 01/20/18 07 - 01/21/18 0659 Shift 0429-5365 0848-8614 1914-0740 24 Hour Total 7565-7128 2194-6405 1654-2918 24 Hour Total I N T A K E IV 5061 978 8204 IVPB 79 79 NS 0.9% 756 41 797 Calcium IVPB 147 147 Fentanyl Volume 54 25 79 Dexmedetomidine IV 45 45 NORepinephrine Volume 78 50 128 Propofol IV 159 208 367 Ampicillin/Sulbactam (Unasyn) IV 100 200 300 TPN/PPN 2951 482 0050 TPN 0007 479 9274 Shift Total 2868 1313 4181 O U [...] Noted - Ruptured abdominal aortic aneurysm (AAA) ([facility]) 01/12/2018 - Obesity, Class I, BMI 30-34.9 01/16/2018 - Encephalopathy 01/13/2018 - DIC (disseminated intravascular coagulation) ([facility]) 01/12/2018 - Hemorrhagic shock ([facility]) 01/12/2018 - Acute respiratory failure ([facility]) 01/12/2018 - Cardiac arrest ([facility]) 01/12/2018 - Hypernatremia 01/12/2018 - Hypokalemia 01/12/2018 - Hypomagnesemia 01/12/2018 - Hypophosphatemia 01/12/2018 - Hyperchloremia 01/12/2018 - AAA (abdominal aortic aneurysm, ruptured) ([facility]) 01/12/2018 Overview Note: Added automatically from request for surgery [id number] 77 year old male with Ruptured AAA [...] discussed with attending: Dr. Paniagua SIGNATURE: Dionicio Stveens MD PATIENT NAME: Naveen Akins DATE: January 20, 2018 TIME: 6:23 AM Vascular AND Thoracic Surgery Service Pager: For questions or concerns Mon-Fri 6a-5p please page [phone]. After 5pm and on Weekends and Holidays, please page [phone] if in ICU or [phone] if on RNF. CHEST 1 VIEW Observed: 01/20/2018 Status: F Source: [facility] 5:31 AM HEALTH SYSTEM REPOSITORY Performed at [facility] APPROVED BY: Teddy Mota MD EXAMINATION: [...] change HEMOGRAM/DIFF Collected: 01/20/2018 Status: F Source: [facility] 3:45 AM HEALTH SYSTEM REPOSITORY TYPE CODE [...] Lymph 0.64 LAB MONON(LOINC) 0.30-0.82 thou/cmm Abs. Luna 0.75 LAB EOSN(LOINC) 0.04-0.54 thou/cmm Abs. Eosin 0.04 LAB BASON(LOINC) 0.01-0.08 thou/cmm Abs. Baso 0.03 Performed By: #### CBCD1 #### [facility] [address] [address] HEPATIC PANEL Collected: 01/20/2018 Status: F Source: [facility] 3:45 AM HEALTH SYSTEM REPOSITORY TYPE CODE [...] Blood 57 Performed By: #### HEPAP #### [place] [address] BASIC PANEL Collected: 01/20/2018 Status: F Source: [facility] 3:45 AM HEALTH SYSTEM REPOSITORY TYPE CODE [...] Blood 186 Performed By: #### P8 #### [place] [address] MAGNESIUM BLOOD Collected: 01/20/2018 Status: F Source: [facility] 3:45 AM HEALTH SYSTEM REPOSITORY TYPE CODE TESTS RESULT OUT OF REFERENCE UNITS RANGE LAB MAG(LOINC) 1.6-2.6 mg/dL Magnesium Blood 2.6 Performed By: #### MAG #### [place] [address] PHOSPHORUS BLOOD Collected: 01/20/2018 Status: F Source: [facility] 3:45 AM HEALTH SYSTEM REPOSITORY TYPE CODE TESTS RESULT OUT OF REFERENCE UNITS RANGE LAB PHOS(LOINC 2.5-4.9 mg/dL ) High Phosphorus Blood 5.2 Performed By: #### PHOS #### [place] [address] PROGRESS Observed: 01/19/2018 Status: COMPLETED Source: [facility] 6:04 PM CL[facility] OTHER CAMPUS REPOSITORY O ID: [id number] Author: Herman Sutton Service: Critical Care Author [...] ANES POST Observed: 01/19/2018 Status: COMPLETED Source: [facility] 5:08 PM [facility]INIC OTHER CAMPUS REPOSITORY O ID: [id number] Author: Derian Barlow Service: Anesthesiology Author Type: [...] GAS ARTERIAL Collected: 01/19/2018 Status: F Source: [facility] 4:30 PM HEALTH SYSTEM REPOSITORY TYPE [...] -4.3 Performed By: #### ABG #### [facility] [address] [address] HEMOGRAM Collected: 01/19/2018 Status: F Source: [facility] 4:30 PM HEALTH SYSTEM REPOSITORY TYPE CODE [...] 0.07 Absolute Performed By: #### CBC1 #### [place] [address] BASIC PANEL Collected: 01/19/2018 Status: F Source: [facility] 4:30 PM HEALTH SYSTEM REPOSITORY TYPE CODE [...] Gap 14 Performed By: #### P8 #### [place] [address] PREALBUMIN Collected: 01/19/2018 Status: F Source: [facility] 4:30 PM HEALTH SYSTEM REPOSITORY TYPE CODE TESTS RESULT OUT OF REFERENCE UNITS RANGE LAB PAB(LOINC) 20.0-40.0 mg/dL Low Prealbumin 11.8 Performed By: #### PAB #### [facility] [address] [id number] NURSING PROG Observed: 01/19/2018 Status: COMPLETED Source: [facility] 4:00 PM [facility] REPOSITORY HNO ID: [id number] Author: Ji TylerRn) MAGALY Chino Service: Dialysis Author Type: Registered Nurse Type: Nursing Progress Note Filed: 01/19/2018 7:42 PM Note Text: CRRT system set up after new line with previous settings.BFR 150 pre pump 700 dialysate 700 replacement 700 ufr 350. Good flow from catheter. Hemosafe on x2 PROGRESS Observed: 01/19/2018 Status: COMPLETED Source: [facility] 3:04 PM [facility] REPOSITORY HNO ID: [id number] Author: Troy Godoy Service: Nephrology Author Type: [...] CASE MANAGEM Observed: 01/19/2018 Status: COMPLETED Source: [facility] 2:24 PM [facility] REPOSITORY HNO ID: [id number] Author: Steve TylerRn) Miguel, RN Service: Care Management Author Type: Registered Nurse Type: Care Mgt Progress Note Filed: 01/19/2018 2:28 PM Note Text: Pt to OR today for ex-lap, washout, partial closure, and wound vac change. Remains on IV ABX, precedex, and levo. Will continue to follow for transitional needs. ANES PREOP Observed: 01/19/2018 Status: COMPLETED Source: [facility] 1:52 PM [facility] REPOSITORY HNO ID: [id number] Author: Derian Barlow Service: Anesthesiology Author Type: [...] January 19, 2018 TIME: 1:52 PM CSN: [id number] PROGRESS Observed: 01/19/2018 Status: COMPLETED Source: [facility] 12:52 PM [facility] REPOSITORY HNO ID: [id number] Author: Nohemi (Rn) MAGALY Marquez Service: Nursing Author Type: Registered Nurse Type: Progress Notes Filed: 01/19/2018 12:54 PM Note Text: 0800 CRRT off blood returned. 0820 To Or with anesthesia 1130 Back from Or. Dialysis called to restart CRRT PROGRESS Observed: 01/19/2018 Status: COMPLETED Source: [facility] 12:36 PM [facility] REPOSITORY HNO ID: [id number] Author: Shen Lorenzo Service: Nephrology Author Type: [...] 15 mL at 01/18/18 2142 No current [facility]-ordered outpatient prescriptions on file. Vitals: BP 132/57 [...] do not hesitate to contact me at [phone] if there is any question or concern. Rosanna Talbert MD (Shen Lorenzo) O2% MEASURED VENOUS Collected: 01/19/2018 Status: F Source: [facility] 12:20 PM HEALTH SYSTEM REPOSITORY TYPE CODE TESTS RESULT OUT OF REFERENCE UNITS RANGE LAB O2%MV(LOINC 70.0-80.0 % ) O2% Measured 77.8 Venous Performed By: #### O2%MV #### [facility] [address] [address] HEMOGRAM Collected: 01/19/2018 Status: F Source: [facility] 12:20 PM HEALTH SYSTEM REPOSITORY TYPE CODE [...] 0.03 Performed By: #### CBC1 #### [facility] [address] [address] CHEST 1 VIEW Observed: 01/19/2018 Status: F Source: [facility] 12:16 PM HEALTH SYSTEM REPOSITORY Performed at [facility] APPROVED BY: Yahir Grande MD EXAM [...] GAS ARTERIAL Collected: 01/19/2018 Status: F Source: [facility] 12:15 PM HEALTH SYSTEM REPOSITORY TYPE CODE [...] -4.4 Performed By: #### ABG #### [facility] [address] [address] ALLIED HEALTH Observed: 01/19/2018 Status: COMPLETED Source: [facility] 11:09 AM CLINIC OTHER CAMPUS REPOSITORY HNO ID: [id number] Author: Chaplain Serna (Chaplain) Service: Spiritual Care Author Type: Agency Owner Type: Allied Health Filed: 01/19/2018 11:32 AM Note Text: SPIRITUALCARE Spiritual Care Visit- Brief Note Name: Naveen Akins Date: January 19, 2018 Notes: Checked in w/fam in 3d fl WR--pt is out of surgery and in recovery. Empathetic listening; ministry of presence. Agency Owner Signature: Chaplain Daphne To contact the Spiritual Care Department: Please call [phone] or Page the On-Call Agency Owner at pager [phone] Thank you for the opportunity to be of service. This is an electronically created document. IF PRINTED, PLEASE DO NOT REMOVE FROM THE CHART OR MODIFY PRINTED COPY. BRIEF OP NOT Observed: 01/19/2018 Status: COMPLETED Source: [facility] 10:26 AM [facility] REPOSITORY HNO ID: [id number] Author: Hermelinda Ferrell Service: General Surgery Author Type: Resident Type: Brief Op Note Filed: 01/19/2018 10:28 AM Note Text: BRIEF OPERATIVE / PROCEDURE NOTE LOG ID: [id number] Patient Name:Naveen Akins CSN: [id number] Surgery/Procedure Date: 01/19/2018 Incision/Procedure Start Time: 9:00 AM Incision Close/Procedure End Time: Surgeon(s)/Proceduralist(s) and Rn Training(s): Surgeon(s) and Role: * Venkta Paniagua - Primary * Costa Miguel - Assisting * Hermelinda Ferrell - Resident - Assisting Supervisor Concrete Stone Finishing: Hailey Dixon SA Procedure(s): Procedure(s) (LRB): EXPLORATORY [...] 1440 PROGRESS Observed: 01/19/2018 Status: COMPLETED Source: [facility] 9:01 AM [facility] REPOSITORY HNO ID: [id number] Author: Mervin Lo Service: General Surgery Author Type: Resident Type: Progress Notes Filed: 01/19/2018 9:02 AM Note Text: Attestation signed by Costa Miguel at 01/19/2018 1:43 PM I saw and evaluated the patient. I reviewed the resident's note and agree. Costa Miguel MD, FACS, [facility] EGS PROGRESS NOTES SERVICE DATE: 01/19/2018 Subjective [...] - 01/19/18 0601/19/18699 - 01/20/18 0659 Shift 8093-7139 8310-2593 3615-3757 24 Hour Total 6490-6811 3208-7936 3047-1739 24 Hour Total I N T A K E IV 1190.6 157.6 1348.2 Calcium IVPB 250 250 Fentanyl Volume 71.6 89.6 161.2 Amiodarone 176 176 NORepinephrine Volume 256 68 324 Propofol IV 37 37 Ampicillin/Sulbactam (Unasyn) IV 400 400 TPN/PPN 1210 1210 TPN 1210 1210 Shift Total 2400.6 157.6 2558.2 O U T P U T Tubes 650 649 701 1510 Drain/Tube Output (Drain/Tube 01/12/18 0100 Hemovac Midline Anterior Abdomen) 650 187 372 4121 Drain/Tube Output (Drain/Tube 01/12/18 Fecal Management System) 0 20 20 Output (GI Feed/Drain 01/12/18 0100) 0 0 Dialysis 1647 439 310 3024 Dialysis Output (Ultrafiltration) 1647 033 787 1391 Shift Total 2297 8922 062 1035 Weight (kg) 104.2 104.2 104.2 104.2 104.2 [...] Noted - Ruptured abdominal aortic aneurysm (AAA) ([facility]) 01/12/2018 - Obesity, Class I, BMI 30-34.9 01/16/2018 - Encephalopathy 01/13/2018 - DIC (disseminated intravascular coagulation) ([facility]) 01/12/2018 - Hemorrhagic shock ([facility]) 01/12/2018 - Acute respiratory failure ([facility]) 01/12/2018 - Cardiac arrest ([facility]) 01/12/2018 - Hypernatremia 01/12/2018 - Hypokalemia 01/12/2018 - Hypomagnesemia 01/12/2018 - Hypophosphatemia 01/12/2018 - Hyperchloremia 01/12/2018 - AAA (abdominal aortic aneurysm, ruptured) ([facility]) 01/12/2018 Overview Note: Added automatically from request for surgery [id number] 77 year old male with Ruptured AAA [...] For questions or concerns Tue-Tue-5p please page [phone]. After 5pm and on Weekends and Holidays, please page [phone] if in ICU or [phone] if on RNF. PROGRESS Observed: 01/19/2018 Status: COMPLETED Source: [facility] 6:[address] [facility] OTHER CAMPUS REPOSITORY O ID: [id number] Author: Dionicio (Res) Rodney Service: Vascular Surgery Author Type: Resident Type: Progress Notes Filed: 01/19/2018 8:48 AM Note Text: Vascular Surgery Progress Note SERVICE DATE: 01/19/2018 Vascular AND Thoracic Surgery Service Pager: For questions or concerns Tue-Tue 6a-5p please page [phone]. After 5pm and on Weekends and Holidays, [...] 0659 01/19/18 07 - 01/20/18 0659 Shift 4842-8255 1905-2618 8034-5586 24 Hour Total 4117-9700 8821-8386 0969-6869 24 Hour Total I N T A [...] Feed/Drain 01/12/18 0100) 0 0 Dialysis 1647 285 085 4866 Dialysis Output (Ultrafiltration) 1647 418 781 7225 Shift Total 2297 7309 690 6240 Weight (kg) 104.2 104.2 104.2 104.2 [...] Noted - Ruptured abdominal aortic aneurysm (AAA) ([facility]) 01/12/2018 - Obesity, Class I, BMI 30-34.9 01/16/2018 - Encephalopathy 01/13/2018 - DIC (disseminated intravascular coagulation) ([facility]) 01/12/2018 - Hemorrhagic shock ([facility]) 01/12/2018 - Acute respiratory failure ([facility]) 01/12/2018 - Cardiac arrest ([facility]) 01/12/2018 - Hypernatremia 01/12/2018 - Hypokalemia 01/12/2018 - Hypomagnesemia 01/12/2018 - Hypophosphatemia 01/12/2018 - Hyperchloremia 01/12/2018 - AAA (abdominal aortic aneurysm, ruptured) ([facility]) 01/12/2018 Overview Note: Added automatically from request for surgery [id number] 77 year old male with Ruptured AAA [...] 1 VIEW Observed: 01/19/2018 Status: F Source: [facility] 5:15 AM HEALTH SYSTEM REPOSITORY Performed at [facility] APPROVED BY: Yahir Grande MD EXAM [...] IONIZED CALCIUM Collected: 01/19/2018 Status: F Source: [facility] 4:50 AM HEALTH SYSTEM REPOSITORY TYPE CODE TESTS RESULT OUT OF REFERENCE UNITS RANGE LAB CAION(LOINC 4.43-4.93 mg/dL ) Low Ionized 4.16 Calcium LAB PHCAI(LOINC 7.320-7.420 ) pH 7.325 LAB CAPH(LOINC) 4.36-4.73 mg/dL Low Ionized 4.00 Ca,PH7.4 Performed By: #### IONCA #### [facility] [address] [address] HEMOGRAM/DIFF Collected: 01/19/2018 Status: F Source: [facility] 4:50 AM HEALTH SYSTEM REPOSITORY TYPE CODE [...] 0.54 LAB MONON(LOIN 0.30-0.82 thou/cmm C) Abs. Luna 0.43 LAB EOSN(LOINC 0.04-0.54 thou/cmm ) Low Abs. Eosin 0.01 LAB BASON(LOIN 0.01-0.08 thou/cmm C) Abs. Baso 0.03 Performed By: #### CBCD1 #### [place] [address] BASIC PANEL Collected: 01/19/2018 Status: F Source: [facility] 4:50 AM HEALTH SYSTEM REPOSITORY TYPE CODE [...] Gap 13 Performed By: #### P8 #### [place] [address] MAGNESIUM BLOOD Collected: 01/19/2018 Status: F Source: [facility] 4:50 AM HEALTH SYSTEM REPOSITORY TYPE CODE TESTS RESULT OUT OF REFERENCE UNITS RANGE LAB MAG(LOINC) 1.6-2.6 mg/dL Magnesium Blood 2.6 Performed By: #### MAG #### [place] [address] PHOSPHORUS BLOOD Collected: 01/19/2018 Status: F Source: [facility] 4:50 AM HEALTH SYSTEM REPOSITORY TYPE CODE TESTS RESULT OUT OF REFERENCE UNITS RANGE LAB PHOS(LOINC 2.5-4.9 mg/dL ) Phosphorus Blood 2.7 Performed By: #### PHOS #### [place] [address] OPERATIVE NO Observed: 01/19/2018 Status: COMPLETED Source: [facility] 12:00 AM CLINIC OTHER CAMPUS REPOSITORY O ID: [id number] Author: Costa Miguel Service: Gastroenterology Surgery Author Type: Physician Type: Operative Report Filed: 01/20/2018 4:15 PM Note Text: [facility] - Operative Report SURGEON: Costa Miguel MD PATIENT NAME: NAVEEN AKINS CSN: [id number] DATE OF SURGERY: 01/19/2018 DATE OF : 1940 SEX/AGE: M/77 PATIENT TYPE: I HOSP SVC: LICO LOCATION: [id number] DATE OF SURGERY: 01/19/2018 SURGEON: Costa Miguel MD PREOPERATIVE DIAGNOSIS: Open abdomen status post rupture of aneurysm. POSTOPERATIVE DIAGNOSIS: Open abdomen status post rupture of aneurysm. PROCEDURE: Exploratory laparotomy, partial closure of open abdomen and placement of ABThera wound VAC. CONSTRUCTION CONTROLLER: Hermelinda Ferrell MD; and Hailey, surgical coordinator. ANESTHESIA: General. INDICATIONS: Open abdomen, critically ill [...] then we started closing superiorly initially with [id number]-[id number] sutures of #1 PDS, switching to running [...] provide assistance. Costa Miguel MD Surgery [email or web address]:[id number] /[id number] HEMOGRAM Collected: 01/18/2018 Status: F Source: [facility] 11:05 PM HEALTH SYSTEM REPOSITORY TYPE CODE [...] 0.03 Absolute Performed By: #### CBC1 #### [place] [address] PROGRESS Observed: 01/18/2018 Status: COMPLETED Source: [facility] 10:02 PM CLINIC OTHER CAMPUS REPOSITORY O ID: [id number] Author: Herman Sutton Service: Critical Care Author [...] ALLIED HEALTH Observed: 01/18/2018 Status: COMPLETED Source: [facility] 6:[address] [facility] OTHER CAMPUS REPOSITORY O ID: [id number] Author: Chaplain Barbosa (Chaplain) Service: Spiritual Care Author Type: Agency Owner Type: Allied Health Filed: 01/18/2018 6:21 PM Note Text: SPIRITUALCARE Spiritual Care Visit- Brief Note Name: Naveen Akins Date: January 18, 2018 Notes: Pre-surgery game attendant visit: Agency Owner introduced himself and role/availability to Pt's daughter who was standing at bedside. Pt partially alert and unable to respond verbally. Pt's daughter indicated the Pt has endured 5 previous surgeries and is scheduled for his 6th the following day. Agency Owner listened emphatically and confirmed how difficult the journey has been. Pt's daughter stated the family is well supported and has been present around the clock. Agency Owner provided spiritual comfort and prayers as desired. Pt's daughter grateful for game attendant visit/prayers and provided game attendant with a hug. Pt/family would benefit from ongoing SC/support. Agency Owner to remain available. Agency Owner Signature: Chaplain Familia To contact the Spiritual Care Department: Please call [phone] or Page the On-Call Agency Owner at pager [phone] Thank you for the opportunity to be of service. This is an electronically created document. IF PRINTED, PLEASE DO NOT REMOVE FROM THE CHART OR MODIFY PRINTED COPY. PROGRESS Observed: 01/18/2018 Status: COMPLETED Source: [facility] 5:29 PM [facility]IN[facility] OTHER CAMPUS REPOSITORY O ID: [id number] Author: Shen Lorenzo Service: Nephrology Author Type: Physician Type: Progress Notes Filed: 01/18/2018 5:37 PM Note Text: Nephrology Progress Note Following for TERENCE. Pt is sedated and is on ventilator. Cannot obtain ROS. Current Inpatient Medications: Current Facility-Administered Medications Ordered in [facility]: Parenteral Nutrition - Adult INTRAVENOUS ONCE TPN (1800 START) Perla Dudley dexmedetomidine 400 mcg in NaCl 0.9% 100 mL (PRECEDEX) 0.2- 0.7 mcg/kg/hr INTRAVENOUS CONTINUOUS Paulo (Assembler For Puller Over Hand) [place] Last Rate: 2.61 mL/hr at 01/18/18 [...] mL (NEXTERONE) 0.5-1 mg/min INTRAVENOUS CONTINUOUS Paulo (Assembler For Puller Over Hand) Radu Last Rate: 16.67 mL/hr at 01/18/18 [...] 15 mL at 01/18/18 0840 No current [facility]-ordered outpatient prescriptions on file. Vitals: BP 121/57 [...] do not hesitate to contact me at [phone] if there is any question or concern. Rosanna Talbert MD (Shen Lorenzo) VENOUS BLOOD GAS Collected: 01/18/2018 Status: F Source: [facility] 4:30 PM HEALTH SYSTEM REPOSITORY TYPE CODE [...] Venous 94.3 Performed By: #### VBG #### [place] [address] BASIC PANEL Collected: 01/18/2018 Status: F Source: [facility] 4:30 PM HEALTH SYSTEM REPOSITORY TYPE CODE [...] 14 Performed By: #### P8 #### [facility] [address] [place] [address] HEMOGRAM Collected: 01/18/2018 Status: F Source: [facility] 4:30 PM HEALTH SYSTEM REPOSITORY TYPE CODE [...] 0.03 Performed By: #### CBC1 #### [facility] [address] [place] [id number] PROGRESS Observed: 01/18/2018 Status: COMPLETED Source: [facility] 12:17 PM CLIN[facility] OTHER CAMPUS REPOSITORY HNO ID: [id number] Author: Mervin Lo Service: General Surgery Author Type: Resident Type: Progress Notes Filed: 01/18/2018 12:27 PM Note Text: Attestation signed by Costa Miguel at 01/18/2018 12:27 PM I saw and evaluated the patient. I reviewed the resident's note and agree. Costa Miguel MD, FACS, [facility]GS PROGRESS NOTES SERVICE DATE: 01/18/2018 [...] 0659 01/18/18 07 - 01/19/18 0659 Shift 3229-8619 5763-4178 6298-4553 24 Hour Total 3233-0056 6270-6947 7819-0231 24 Hour Total I N T A [...] 0 0 0 0 0 Dialysis 2138 770 930 7691 1068 1068 Dialysis Output (Ultrafiltration) 2138 163 227 2453 1068 1068 Shift Total 3270 1841 1367 [...] Noted - Ruptured abdominal aortic aneurysm (AAA) ([facility]) 01/12/2018 - Obesity, Class I, BMI 30-34.9 01/16/2018 - Encephalopathy 01/13/2018 - DIC (disseminated intravascular coagulation) ([facility]) 01/12/2018 - Hemorrhagic shock ([facility]) 01/12/2018 - Acute respiratory failure ([facility]) 01/12/2018 - Cardiac arrest ([facility]) 01/12/2018 - Hypernatremia 01/12/2018 - Hypokalemia 01/12/2018 - Hypomagnesemia 01/12/2018 - Hypophosphatemia 01/12/2018 - Hyperchloremia 01/12/2018 - AAA (abdominal aortic aneurysm, ruptured) ([facility]) 01/12/2018 Overview Note: Added automatically from request for surgery [id number] 77 year old male with Ruptured AAA [...] questions or concerns Tue-Tue 6a-5p please page [phone]. After 5pm and on Weekends and Holidays, please page [phone] if in ICU or [phone] if on RNF. PHERESED PLATELETS Collected: 01/18/2018 Status: F Source: [facility] 11:30 AM HEALTH SYSTEM REPOSITORY TYPE CODE TESTS RESULT OUT OF REFERENCE UNITS RANGE LAB PPHR(LOINC) Pheresed Plts Done unit 1 LAB PPHII(LOINC ) Pheresed Plts Done unit 2 Performed By: #### PPHRS #### [place] [address] ANTI PLT FACTOR 4 Collected: 01/18/2018 Status: F Source: [facility] 11:30 AM HEALTH SYSTEM REPOSITORY TYPE [...] SEE BELOW Test Not Indicated Performing Laboratory: [facility] [address] [place] [address] Performed By: #### PLF4X #### [place] [id number] CASE MANAGEM Observed: 01/18/2018 Status: COMPLETED Source: [facility] 10:43 AM CLINIC OTHER CAMPUS REPOSITORY HNO ID: [id number] Author: Krystal Garcia) MAGALY Jacobson Service: Care [...] 18, 2018 TIME: 10:43 AM PAGER/CONTACT #: [phone] VENOUS BLOOD GAS Collected: 01/18/2018 Status: F Source: [facility] 10:00 AM HEALTH SYSTEM REPOSITORY TYPE CODE [...] Venous 78.9 Performed By: #### VBG #### [place] [address] HEMOGRAM Collected: 01/18/2018 Status: F Source: [facility] 10:00 AM HEALTH SYSTEM REPOSITORY TYPE CODE [...] Absolute Performed By: #### CBC1 #### [facility] [address] [place] [address] HEPATIC PANEL Collected: 01/18/2018 Status: F Source: [facility] 10:00 AM HEALTH SYSTEM REPOSITORY TYPE CODE [...] 3.27 Performed By: #### HEPAP #### [facility] [address] [place] [address] CHEST 1 VIEW Observed: 01/18/2018 Status: F Source: [facility] 5:37 AM HEALTH SYSTEM REPOSITORY Performed at [facility] APPROVED BY: Justino Rodriguez MD EXAMINATION: [...] effusions. PROGRESS Observed: 01/18/2018 Status: COMPLETED Source: [facility] 5:[address] [facility] OTHER [place] REPOSITORY HNO ID: [id number] Author: Dionicio Stevens Service: Vascular Surgery Author [...] 0659 01/18/18 0700 - 01/19/18 0659 Shift 1628-0251 7830-1317 0897-6913 24 Hour Total 0453-6958 0297-5919 3503-6658 24 Hour Total I N T A [...] Fr 01/17/18 1800) 32 28 60 Tubes 2684 655 4169 Drain/Tube Output (Drain/Tube 01/12/18 0100 Hemovac Midline Anterior Abdomen) 8915 081 8423 Drain/Tube Output (Drain/Tube 01/12/18 Fecal Management System) 0 0 0 Output (GI Feed/Drain 01/12/18 0100) 0 0 0 Dialysis 2138 489 826 5023 Dialysis Output (Ultrafiltration) 2138 650 378 1307 Shift Total 3270 7237 251 1947 Weight (kg) 104.2 104.2 104.2 104.2 104.2 [...] Noted - Ruptured abdominal aortic aneurysm (AAA) ([facility]) 01/12/2018 - Obesity, Class I, BMI 30-34.9 01/16/2018 - Encephalopathy 01/13/2018 - DIC (disseminated intravascular coagulation) ([facility]) 01/12/2018 - Hemorrhagic shock ([facility]) 01/12/2018 - Acute respiratory failure ([facility]) 01/12/2018 - Cardiac arrest ([facility]) 01/12/2018 - Hypernatremia 01/12/2018 - Hypokalemia 01/12/2018 - Hypomagnesemia 01/12/2018 - Hypophosphatemia 01/12/2018 - Hyperchloremia 01/12/2018 - AAA (abdominal aortic aneurysm, ruptured) ([facility]) 01/12/2018 Overview Note: Added automatically from request for surgery [id number] 77 year old male with Ruptured AAA [...] MAGNESIUM BLOOD Collected: 01/18/2018 Status: F Source: [facility] 5:00 AM HEALTH SYSTEM REPOSITORY TYPE CODE TESTS RESULT OUT OF REFERENCE UNITS RANGE LAB MAG(LOINC) 1.6-2.6 mg/dL Magnesium Blood 2.4 Performed By: #### MAG #### [place] [address] PHOSPHORUS BLOOD Collected: 01/18/2018 Status: F Source: [facility] 5:00 AM HEALTH SYSTEM REPOSITORY TYPE CODE TESTS RESULT OUT OF REFERENCE UNITS RANGE LAB PHOS(LOINC 2.5-4.9 mg/dL ) Phosphorus Blood 3.8 Performed By: #### PHOS #### [place] [address] HEMOGRAM/DIFF Collected: 01/18/2018 Status: F Source: [facility] 4:35 AM HEALTH SYSTEM REPOSITORY TYPE CODE [...] 0.55 LAB MONON(LOIN 0.30-0.82 thou/cmm C) Abs. Luna 0.44 LAB EOSN(LOINC 0.04-0.54 thou/cmm ) Low Abs. Eosin 0.02 LAB BASON(LOIN 0.01-0.08 thou/cmm C) Abs. Baso 0.03 Result Comment: Smear scanned; tech agrees with automated differential Performed By: #### CBCD1 #### [facility] [address] [place], [place] [address] BASIC PANEL Collected: 01/18/2018 Status: F Source: [facility] 4:35 AM HEALTH SYSTEM REPOSITORY TYPE CODE [...] Gap 16 Performed By: #### P8 #### [place] [address] PROGRESS Observed: 01/18/2018 Status: COMPLETED Source: [facility] 12:05 AM [facility] REPOSITORY HNO ID: [id number] Author: Joycelyn (Rn) MAGALY Lester Service: Dialysis [...] ALLIED HEALTH Observed: 01/17/2018 Status: COMPLETED Source: [facility] 9:30 PM [facility] REPOSITORY HNO ID: [id number] Author: Gertrude (Agency Owner) Chaplain José Service: Spiritual Care Author Type: Agency Owner Type: Allied Health Filed: 01/18/2018 4:34 AM Note Text: SPIRITUALCARE Spiritual Care Visit- Brief Note Name: Naveen Akins Date: January 18, 2018 Notes: Visit with family in waiting room.Great support for patient. No coffee available to family. Machine on 4th floor has been broken for days. Notified nurse on 4800. Family thankful for continued visits and prayer. Agency Owner Signature: Chaplain Rosendo To contact the Spiritual Care Department: Please call [phone] or Page the On-Call Agency Owner at pager [phone] Thank you for the opportunity to be of service. This is an electronically created document. IF PRINTED, PLEASE DO NOT REMOVE FROM THE CHART OR MODIFY PRINTED COPY. 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 able to return blood/new set up/ arterial and venous line both sluggish but running ART TO ART and trevor to trevor/ flows remain the same/ hemosafe device x2 report to horticulture professor -- ariadna stewart rn BASIC PANEL Collected: 01/17/2018 Status: F Source: [facility] 4:50 PM HEALTH SYSTEM REPOSITORY TYPE CODE [...] 15 Performed By: #### P8 #### [facility] [address] [place] [address] PHERESED PLATELETS Collected: 01/17/2018 Status: F Source: [facility] 4:48 PM HEALTH SYSTEM REPOSITORY TYPE CODE TESTS RESULT OUT OF REFERENCE UNITS RANGE LAB PPHR(LOINC) Pheresed Plts Done unit 1 Performed By: #### PPHRS #### [facility] [address] [place] [address] HEMOGRAM Collected: 01/17/2018 Status: F Source: [facility] 4:39 PM HEALTH SYSTEM REPOSITORY TYPE CODE [...] 0.03 Performed By: #### CBC1 #### [facility] [address] [place] [address] BLOOD GAS ARTERIAL Collected: 01/17/2018 Status: F Source: [facility] 4:30 PM HEALTH SYSTEM REPOSITORY TYPE CODE [...] -3.5 Performed By: #### ABG #### [facility] [address] [place] [address] NUTRITION Observed: 01/17/2018 Status: COMPLETED Source: [facility] 3:17 PM CLINIC OTHER CAMPUS REPOSITORY HNO ID: [id number] Author: Jaimie Wells) KRISHAN Perez Service: Nutrition [...] old male transferred in critical condition from [facility] with diagnosed ruptured AAA. Patient was life-flighted to [facility]. Intubated at outside facility. Per EMS, [...] found for: PCGLUCOSE Jaimie Perez RD Pager: [phone] Increments: 3 PROGRESS Observed: 01/17/2018 Status: COMPLETED Source: [facility] 2:34 PM [facility] REPOSITORY HNO ID: [id number] Author: Wai (Irene) Swapna Service: Cardiovascular Medicine [...] 2018 TIME: 2:35 PM PAGER/CONTACT #: [phone] ETX#[id number] PROGRESS Observed: 01/17/2018 Status: COMPLETED Source: [facility] 1:48 PM [facility] REPOSITORY HNO ID: [id number] Author: Costa Miguel Service: Gastroenterology Surgery Author Type: Physician Type: Progress Notes Filed: 01/17/2018 1:50 PM Note Text: Discussed patient with Dr. Paniagua. Tentative plan is takeback to OR zm 01/19 to begin closure attempt and vac change. Costa Miguel MD, FACS, FASMBS TYPE AND SCREEN Collected: 01/17/2018 Status: F Source: [facility] 11:30 AM HEALTH SYSTEM REPOSITORY TYPE CODE TESTS RESULT OUT OF REFERENCE UNITS RANGE LAB ABO(LOINC) O ABO Group LAB SHIP CONSTRUCTION TEACHER(LOINC ) RH Type Positive LAB ABSCR(LOIN C) Antibody NEGATIVE Screen LAB BBCMT(LOIN C) Comment See Below Result Comment: Screen &/or Xmatch expires in 3 days at 12 midnight. Redraw patient at that time. Performed By: #### T&S #### [facility] [address] [place] [id number] RBC PRODUCTS Collected: 01/17/2018 Status: F Source: [facility] 11:30 AM HEALTH SYSTEM REPOSITORY TYPE CODE TESTS RESULT OUT OF REFERENCE UNITS RANGE LAB UNIT1(LOINC ) Xmatch Unit 1 see below Result Comment: Compatible LAB UNIT2(LOINC) Xmatch Unit 2 see below Result Comment: Compatible Performed By: #### RBCPS #### [place] [address] CASE MANAGEM Observed: 01/17/2018 Status: COMPLETED Source: [facility] 11:20 AM [facility] REPOSITORY HNO ID: [id number] Author: Steve (Rn) MAGALY Rivera Service: Care Management Author Type: Registered Nurse Type: Care Mgt Progress Note Filed: 01/17/2018 11:21 AM Note Text: Epic reviewed, pt went to OR yesterday for ex-lap, abdominal washout and wound vac change, plan is to go back to OR today. Remains on ventilator. ALLIED HEALTH Observed: 01/17/2018 Status: COMPLETED Source: [facility] 11:08 AM [facility] REPOSITORY HNO ID: [id number] Author: Chaplain Serna (Chaplain) Service: Spiritual Care Author Type: Agency Owner Type: Allied Health Filed: 01/17/2018 11:10 AM Note Text: SPIRITUALCARE Spiritual Care Visit- Brief Note Name: Naveen Akins Date: January 17, 2018 Notes: Checked in w/pt's family in 3d floor WR--will continue to follow as appropriate. Agency Owner Signature: Chaplain Daphne To contact the Spiritual Care Department: Please call [phone] or Page the On-Call Agency Owner at pager [phone] Thank you for the opportunity to be of service. This is an electronically created document. IF PRINTED, PLEASE DO NOT REMOVE FROM THE CHART OR MODIFY PRINTED COPY. PROGRESS Observed: 01/17/2018 Status: COMPLETED Source: [facility] 11:[address] [facility] OTHER CAMPUS REPOSITORY O ID: [id number] Author: Shen Lorenzo Service: Nephrology Author Type: [...] mL (NEXTERONE) 0.5-1 mg/min INTRAVENOUS CONTINUOUS Paulo (Assembler For Puller Over Hand) Radu Last Rate: 16.67 mL/hr at 01/17/18 [...] even. I will discuss fluid management with fine arts model. ? 2. Shock. Likely hemorrhagic shock-massive blood [...] do not hesitate to contact me at [phone] if there is any question or concern. Rosanna Talbert MD (Shen Lorenzo) BLOOD GAS ARTERIAL Collected: 01/17/2018 Status: F Source: [facility] 10:30 AM HEALTH SYSTEM REPOSITORY TYPE CODE [...] Given Performed By: #### ABG #### [facility] [address] [place] [address] HEMOGRAM Collected: 01/17/2018 Status: F Source: [facility] 10:30 AM HEALTH SYSTEM REPOSITORY TYPE CODE [...] Absolute 0.02 Performed By: #### CBC1 #### [place] [address] PROGRESS Observed: 01/17/2018 Status: COMPLETED Source: [facility] 9:[address] [facility] OTHER CAMPUS REPOSITORY [facility] ID: [id number] Author: Herman Sutton Service: Critical Care Author [...] AM PROGRESS Observed: 01/17/2018 Status: COMPLETED Source: [facility] 6:31 AM CLINIC OTHER CAMPUS REPOSITORY HNO ID: [id number] Author: Dionicio Stevens Service: Vascular Surgery Author [...] 0659 01/17/18 07 - 01/18/18 0659 Shift 3596-6049 9503-4261 7377-1206 24 Hour Total 3928-6638 6568-1698 1200-1638 24 Hour Total I N T A [...] 16 Fr) 116 5 34 155 Tubes 1145 715 0211 2955 Drain/Tube Output (Drain/Tube 01/12/18 0100 Hemovac Midline Anterior Abdomen) 850 147 288 4194 Drain/Tube Output (Drain/Tube 01/12/18 Fecal Management System) 125 0 50 175 Output (GI Feed/Drain 01/12/18 0100) 355 100 100 555 Dialysis 564 1073 2139 3776 Dialysis Output (Ultrafiltration) 564 1073 2139 3776 Shift Total 2009 1703 3173 6844 Weight (kg) 104.2 104.2 104.2 104.2 104.2 [...] Noted - Ruptured abdominal aortic aneurysm (AAA) ([facility]) 01/12/2018 - Obesity, Class I, BMI 30-34.9 01/16/2018 - Encephalopathy 01/13/2018 - DIC (disseminated intravascular coagulation) ([facility]) 01/12/2018 - Hemorrhagic shock ([facility]) 01/12/2018 - Acute respiratory failure (HCC) 01/12/2018 - Cardiac arrest (HCC) 01/12/2018 - Hypernatremia 01/12/2018 - Hypokalemia 01/12/2018 - Hypomagnesemia 01/12/2018 - Hypophosphatemia 01/12/2018 - Hyperchloremia 01/12/2018 - AAA (abdominal aortic aneurysm, ruptured) (HCC) 01/12/2018 Overview Note: Added automatically from request for surgery [id number] 77 year old male with Ruptured AAA [...] 1 VIEW Observed: 01/17/2018 Status: F Source: [facility] 5:41 AM HEALTH SYSTEM REPOSITORY Performed at [facility] APPROVED BY: NEMO TAN MD EXAMINATION: [...] GAS ARTERIAL Collected: 01/17/2018 Status: F Source: [facility] 4:35 AM HEALTH SYSTEM REPOSITORY TYPE CODE [...] Excess -2.4 Performed By: #### ABG #### [place] [address] IONIZED CALCIUM Collected: 01/17/2018 Status: F Source: [place] [address]:[facility] HEALTH SYSTEM REPOSITORY TYPE CODE TESTS RESULT OUT OF REFERENCE UNITS RANGE LAB CAION(LOINC 4.43-4.93 mg/dL ) Low Ionized 3.98 Calcium LAB PHCAI(LOINC 7.320-7.420 ) pH 7.335 LAB CAPH(LOINC) 4.36-4.73 mg/dL Low Ionized 3.85 Ca,PH7.4 Performed By: #### IONCA #### [place] [address] MAGNESIUM BLOOD Collected: 01/17/2018 Status: F Source: [place] [address]:[facility] SYSTEM REPOSITORY TYPE CODE TESTS RESULT OUT OF REFERENCE UNITS RANGE LAB MAG(LOINC) 1.6-2.6 mg/dL Magnesium Blood 2.3 Performed By: #### MAG #### [place] [address] PHOSPHORUS BLOOD Collected: 01/17/2018 Status: F Source: [facility] 4:35 AM HEALTH SYSTEM REPOSITORY TYPE CODE TESTS RESULT OUT OF REFERENCE UNITS RANGE LAB PHOS(LOINC 2.5-4.9 mg/dL ) Phosphorus Blood 3.3 Performed By: #### PHOS #### [facility] [address] [place], [place] [address] HEMOGRAM/DIFF Collected: 01/17/2018 Status: F Source: [facility] 4:35 AM HEALTH SYSTEM REPOSITORY TYPE CODE [...] Lymph 0.56 LAB MONON(LOINC) 0.30-0.82 thou/cmm Abs. Luna 0.37 LAB EOSN(LOINC) 0.04-0.54 thou/cmm Abs. High Eosin 0.99 LAB BASON(LOINC) 0.01-0.08 thou/cmm Abs. Baso 0.02 Performed By: #### CBCD1 #### [facility] [address] [place], [place] [address] BLOOD GAS ARTERIAL Collected: 01/16/2018 Status: F Source: [address] SYSTEM REPOSITORY TYPE CODE TESTS RESULT [...] Given Performed By: #### ABG #### [facility] [address] [place], [place] [address] HEMOGRAM Collected: 01/16/2018 Status: F Source: [address] HEALTH SYSTEM REPOSITORY TYPE CODE TESTS [...] 10.6 Performed By: #### CBC1 #### [facility] [address] [place], [place] [address] BASIC PANEL Collected: 01/16/2018 Status: F Source: [facility] 7:55 PM HEALTH SYSTEM REPOSITORY TYPE CODE [...] Blood 106 Performed By: #### P8 #### [address] [address] PROGRESS Observed: 01/16/2018 Status: COMPLETED Source: [facility] 7:34 PM CLINIC OTHER CAMPUS REPOSITORY HNO ID: [id number] Author: Ariadna (Rn) MAGALY Stewart Service: Abstract Author Type: Registered Nurse Type: Progress Notes Filed: 01/16/2018 7:36 PM Note Text: crrt taken off per horticulture professor at around 1645 for OR trip/ crrt resumed at 1930/ on 4 k bfr 200 flows at 700 / horticulture professor to try to remove some fluid off per hour depending on bp/ drsg changed to LIJ dialysis catheter/ hemosafe device x2 - report to horticulture professor /ariadna stewart rn ANES POST Observed: 01/16/2018 Status: COMPLETED Source: [facility] 7:07 PM [facility] REPOSITORY HNO ID: [id number] Author: Derian Barlow Service: Anesthesiology Author Type: [...] ANES PREOP Observed: 01/16/2018 Status: COMPLETED Source: [facility] 7:06 PM [facility] REPOSITORY HNO ID: [id number] Author: Derian Barlow Service: Anesthesiology Author Type: [...] mL (NEXTERONE) 0.5-1 mg/min INTRAVENOUS CONTINUOUS Paulo (Assembler For Puller Over Hand) Radu Last Rate: 16.67 mL/hr at 01/16/18 [...] January 16, 2018 TIME: 7:06 PM CSN: [id number] BRIEF OP NOT Observed: 01/16/2018 Status: COMPLETED Source: [facility] 6:[address] [facility] OTHER CAMPUS REPOSITORY [facility] ID: [id number] Author: Kannan Felder Service: General Surgery Author Type: Resident Type: Brief Op Note Filed: 01/16/2018 6:13 PM Note Text: BRIEF OPERATIVE / PROCEDURE NOTE LOG ID: [id number] SURGERY/PROCEDURE DATE: 01/16/2018 INCISION/PROCEDURE START TIME: 5:30 PM INCISION CLOSE/PROCEDURE END TIME: 5:57 PM SURGEON(S)/PROCEDURALIST(S) AND CONSTRUCTION CONTROLLER(S): Surgeon(s) and Role: * Venkat Paniagua - Primary * Kannan Felder - Resident - Assisting Supervisor Concrete Stone Finishing: Dorcas Schuler SA SURGERY/PROCEDURE(S): exploratory laparotomy. Change [...] NURSING PROG Observed: 01/16/2018 Status: COMPLETED Source: [facility] 5:43 PM CLINIC OTHER CAMPUS REPOSITORY HNO ID: [id number] Author: Yessica TylerRn) MAGALY Guy Service: Nursing Author Type: Registered Nurse Type: Nursing Progress Note Filed: 01/16/2018 5:44 PM Note Text: Whenever this patient comes back to the OR to be closed, an xray needs to be done prior to. PER DR. PANIAGUA PHERESED PLATELETS Collected: 01/16/2018 Status: F Source: [facility] 5:11 PM HEALTH SYSTEM REPOSITORY TYPE CODE TESTS RESULT OUT OF REFERENCE UNITS RANGE LAB PPHR(LOINC) Pheresed Plts Done unit 1 Performed By: #### PPHRS #### [place] [address] 12 LEAD ELECTROCARDIOGRAM Observed: 01/16/2018 Status: F Source: [facility] 3:03 PM [facility] [place] [facility] Cardiovascular Services [address] [place] [address] 12 Lead EKG 01/11/18 2330 MR#: [id number] Acct: [id number] Name: NAVEEN AKINS Rep #: [id number] : 1940 77 From: Jax Finnegan MD [...] ECG Confirmed by JAX FINNEGAN MD ([id number]), assistant film editor KATHY SILVA ([id number]) on 01/16/2018 3:03:17 PM Referred By: TA Confirmed By:JAX FINNEGAN MD 01/16/18 1503 Date Jax Finnegan MD CC: Kathy Dill; Jack Olmedo MD Signed CASE MANAGEM Observed: 01/16/2018 Status: COMPLETED Source: [facility] 2:38 PM CLINIC OTHER CAMPUS REPOSITORY HNO ID: [id number] Author: Viktoriya Garcia) MAGALY Alvarado Service: Care [...] 16, 2018 TIME: 2:38 PM PAGER/CONTACT #: [phone] NUTRITION Observed: 01/16/2018 Status: COMPLETED Source: [facility] 1:44 PM CLINIC OTHER CAMPUS REPOSITORY HNO ID: [id number] Author: Jaimie Perez RD Service: Nutrition Therapy [...] old male transferred in critical condition from [facility] with diagnosed ruptured AAA. Patient was life-flighted to [facility]. Intubated at outside facility. Per EMS, patient [...] admit X 4 days after tx from [facility]. Present Diet Order: NPO Enteral Access: NG Nutritional Intake Prior to Admission: Intake hx unknown;tx from [facility] and has not been on support yet [...] : 104.2 kg (229 lb 11.5 oz) [place] Body Weight: 96kg Resting Metabolic Rate: 1746 Estimated kilocalorie needs: 3372-3460 kilocalories determined by 20-25 kcal/kg Estimated protein needs: 144 grams determined by 1.5gms/kg [place] weight Estimated fluid needs: per renal NUTRITION [...] 01/16/18 0700 - 01/17/18 0659 Intake (ml) 32892 8893.5 9167.4 8388 1518.2 Output (ml) 6865 5529 9661 64474 1791 Net (ml) 4742 3364.5 -493.6 -1754 [...] January 16, 2018 TIME: 1:44 PM PAGER: [phone] BLOOD GAS ARTERIAL Collected: 01/16/2018 Status: F Source: [facility] 11:45 AM HEALTH SYSTEM REPOSITORY TYPE CODE [...] -2.6 Performed By: #### ABG #### [facility] [address] [place] [address] HEMOGRAM Collected: 01/16/2018 Status: F Source: [facility] 11:45 HEALTH SYSTEM REPOSITORY TYPE CODE TESTS [...] 11.0 Performed By: #### CBC1 #### [facility] [address] [place] [address] PROGRESS Observed: 01/16/2018 Status: COMPLETED Source: [facility] 10:59 AM [facility]IN[facility] OTHER CAMPUS REPOSITORY HNO ID: [id number] Author: Troy Godoy Service: Nephrology Author Type: [...] ? PROGRESS Observed: 01/16/2018 Status: COMPLETED Source: [place] 10:56 AM [facility] REPOSITORY [facility] ID: [id number] Author: Hermelinda Ferrell Service: General Surgery Author Type: Resident Type: Progress Notes Filed: 01/16/2018 11:02 AM Note Text: Attestation signed by Costa Miguel at 01/16/2018 11:13 AM I saw and evaluated the patient. I reviewed the resident's note and agree. Costa Miguel MD, [facility], [facility] PROGRESS NOTE EGS Surgery Progress Note Emergency General Surgery Service Pager: For questions or concerns Mon-Tue 6a-5p please page [phone]. After 5pm and on Weekends and Holidays, please page [phone] if in ICU or [phone] if on RNF. SERVICE DATE: 01/16/2018 SERVICE [...] 0659 01/16/18 07 - 01/17/18 0659 Shift 5368-1179 3654-3996 1735-3831 24 Hour Total 9976-8658 6310-1761 4847-1159 24 Hour Total I N T A [...] 2 8 81 91 23 23 Tubes 386 313 5702 2675 750 750 Drain/Tube Output (Drain/Tube 01/12/18 0100 Hemovac Midline Anterior Abdomen) 870 436 2178 2575 450 450 Drain/Tube Output (Drain/Tube 01/12/18 Fecal Management System) 0 0 0 0 50 50 Output (GI Feed/Drain 01/12/18 0100) 100 0 0 100 250 250 Dialysis 2082 2423 2868 7376 104 104 Dialysis Output (Ultrafiltration) 2082 2423 2868 7376 104 104 Shift Total 2864 3277 4000 37086 877 877 Weight (kg) 104.7 104.7 104.2 [...] Noted - Ruptured abdominal aortic aneurysm (AAA) ([facility]) 01/12/2018 - Encephalopathy 01/13/2018 - DIC (disseminated intravascular coagulation) ([facility]) 01/12/2018 - Hemorrhagic shock ([facility]) 01/12/2018 - Acute respiratory failure ([facility]) 01/12/2018 - Cardiac arrest ([facility]) 01/12/2018 - Hypernatremia 01/12/2018 - Hypokalemia 01/12/2018 - Hypomagnesemia 01/12/2018 - Hypophosphatemia 01/12/2018 - Hyperchloremia 01/12/2018 - AAA (abdominal aortic aneurysm, ruptured) ([facility]) 01/12/2018 Overview Note: Added automatically from request for surgery [id number] Assessment/Plan 77 yo M with Ruptured AAA [...] AM PROGRESS Observed: 01/16/2018 Status: COMPLETED Source: [facility] 10:24 AM CLINIC OTHER CAMPUS REPOSITORY O ID: [id number] Author: Herman Sutton Service: Critical Care Author [...] 1 VIEW Observed: 01/16/2018 Status: F Source: [facility] 6:41 AM HEALTH SYSTEM REPOSITORY Performed at [facility] APPROVED BY: Teo Gutiérrez MD EXAMINATION: [...] loss. PROGRESS Observed: 01/16/2018 Status: COMPLETED Source: [facility] 6:12 AM [facility] REPOSITORY O ID: [id number] Author: Dionicio Stevens Service: Vascular Surgery Author [...] questions or concerns Mon-Fri 6a-5p please page [phone]. After 5pm and on Weekends and Holidays, please page [phone] if in ICU or [phone] if on RNF. Subjective SUBJECTIVE: Weaning down [...] 01/15/18699 - 01/16/1865801/16/18699 - 01/17/18 0659 Shift 0909-7221 0959-3576 0270-9376 24 Hour Total 2256-7159 2154-2711 0533-8480 24 Hour Total I N T A [...] 16 Fr) 2 8 81 91 Tubes 439 548 3114 2675 Drain/Tube Output (Drain/Tube 01/12/18 0100 Hemovac Midline Anterior Abdomen) 169 239 9296 2575 Drain/Tube Output (Drain/Tube 01/12/18 Fecal Management [...] Noted - Ruptured abdominal aortic aneurysm (AAA) ([facility]) 01/12/2018 - Encephalopathy 01/13/2018 - DIC (disseminated intravascular coagulation) ([facility]) 01/12/2018 - Hemorrhagic shock (HCC) 01/12/2018 - Acute respiratory failure (HCC) 01/12/2018 - Cardiac arrest (HCC) 01/12/2018 - Hypernatremia 01/12/2018 - Hypokalemia 01/12/2018 - Hypomagnesemia 01/12/2018 - Hypophosphatemia 01/12/2018 - Hyperchloremia 01/12/2018 - AAA (abdominal aortic aneurysm, ruptured) (HCC) 01/12/2018 Overview Note: Added automatically from request for surgery [id number] 77 year old male with Ruptured AAA [...] RNF. HEMOGRAM/DIFF Collected: 01/16/2018 Status: F Source: [facility] 4:30 AM HEALTH SYSTEM REPOSITORY TYPE CODE [...] 0.69 LAB MONON(LOIN 0.30-0.82 thou/cmm C) Abs. Luna 0.40 LAB EOSN(LOINC 0.04-0.54 thou/cmm ) Abs. High Eosin 1.10 LAB BASON(LOIN 0.01-0.08 thou/cmm C) Abs. Baso 0.02 Result Comment: Smear scanned; tech agrees with automated differential Performed By: #### CBCD1 #### [place] [address] MAGNESIUM BLOOD Collected: 01/16/2018 Status: F Source: [facility] 4:30 AM HEALTH SYSTEM REPOSITORY TYPE CODE TESTS RESULT OUT OF REFERENCE UNITS RANGE LAB MAG(LOINC) 1.6-2.6 mg/dL Magnesium Blood 2.2 Performed By: #### MAG #### [facility] [address] [place] [address] PHOSPHORUS BLOOD Collected: 01/16/2018 Status: F Source: [facility] 4:30 AM HEALTH SYSTEM REPOSITORY TYPE CODE TESTS RESULT OUT OF REFERENCE UNITS RANGE LAB PHOS(LOINC 2.5-4.9 mg/dL ) Phosphorus Blood 2.5 Performed By: #### PHOS #### [facility] [address] [place] [address] BASIC PANEL Collected: 01/16/2018 Status: F Source: [facility] 4:30 AM HEALTH SYSTEM REPOSITORY TYPE CODE [...] 88 Performed By: #### P8 #### [facility] [address] [place] [address] HEMOGRAM Collected: 01/15/2018 Status: F Source: [facility] 10:19 PM HEALTH SYSTEM REPOSITORY TYPE CODE [...] 11.5 Performed By: #### CBC1 #### [facility] [address] [place], [place] [address] BLOOD GAS ARTERIAL Collected: 01/15/2018 Status: F Source: [facility] 10:05 PM HEALTH SYSTEM REPOSITORY TYPE CODE [...] Excess -3.6 Performed By: #### ABG #### [address] [address] PROGRESS Observed: 01/15/2018 Status: COMPLETED Source: [facility] 7:28 PM CL[facility] OTHER CAMPUS REPOSITORY O ID: [id number] Author: Chente Whittaker Service: Critical Care Author [...] per 24 hour Intake 8140.4 ml Output 44145 ml Net -2018.6 ml DATA: I personally [...] PM PROGRESS Observed: 01/15/2018 Status: COMPLETED Source: [facility] 3:54 PM [facility] OTHER CAMPUS REPOSITORY O ID: [id number] Author: Dionicio (Edenilson) Rodney Service: Vascular Surgery [...] follow closely Dionicio Stevens MD PGY-4 Pager: [phone] 01/15/2018, 4:05 PM PROGRESS Observed: 01/15/2018 Status: COMPLETED Source: [facility] 3:44 PM [facility] OTHER CAMPUS REPOSITORY HNO ID: [id number] Author: Renate Handy Service: Nephrology Author Type: [...] do not hesitate to contact me at [phone] with any concerns SIGNATURE: Renate Handy DO PATIENT NAME: Naveen Akins DATE: January 14, 2018 TIME: 10:08 AM PAGER/CONTACT #: BLOOD GAS ARTERIAL Collected: 01/15/2018 Status: F Source: [facility] 3:30 PM HEALTH SYSTEM REPOSITORY TYPE CODE [...] -3.0 Performed By: #### ABG #### [facility] [address] [place] [address] HEMOGRAM Collected: 01/15/2018 Status: F Source: [facility] 3:30 PM HEALTH SYSTEM REPOSITORY TYPE CODE [...] MPV 10.9 Performed By: #### CBC1 #### [place] [address] BASIC PANEL Collected: 01/15/2018 Status: F Source: [facility] 3:30 PM HEALTH SYSTEM REPOSITORY TYPE CODE [...] Gap 12 Performed By: #### P8 #### [address] [address] PROGRESS Observed: 01/15/2018 Status: COMPLETED Source: [facility] 3:29 PM [facility] OTHER CAMPUS REPOSITORY HNO ID: [id number] Author: Paulo Lovelace (Cns) Service: Critical Care Author Type: Nurse Specialist Type: Progress Notes Filed: 01/15/2018 3:33 PM Note Text: Abdomen appears more distended than approx 11AM this morning. Significant scrotal edema observed as well. Check stat CBCD. Ana Granda and Rodney notified. PHERESED PLATELETS Collected: 01/15/2018 Status: F Source: [facility] 2:49 PM HEALTH SYSTEM REPOSITORY TYPE CODE TESTS RESULT OUT OF REFERENCE UNITS RANGE LAB PPHR(LOINC) Pheresed Plts Done unit 1 Performed By: #### PPHRS #### [facility] [address] [place] [address] NURSING PROG Observed: 01/15/2018 Status: COMPLETED Source: [facility] 2:25 PM [facility] OTHER [facility]AMPUS REPOSITORY HNO ID: [id number] Author: Araceli TylerRn) MAGALY Elam Service: Dialysis Author Type: Registered Nurse Type: Nursing Progress Note Filed: 01/15/2018 3:19 PM Note Text: CRRT CHANGED OUT DUE TO INCREASING PRESSURES. BLOOD RETUNED TO PT AND CRRT RESTARTED AT 3PM. M100 ALL PUMPS AT 700 ALL BAGS 4K/2.5CA. LIJ WITH BFR AT 200. REPORT TO WAI GARDNER NURSING PROG Observed: 01/15/2018 Status: COMPLETED Source: [place] 1:[address] [facility] OTHER [place] REPOSITORY HNO ID: [id number] Author: Iza TylerRn) MAGALY Arguelles Service: Nursing Author Type: Registered Nurse Type: Nursing Progress Note Filed: 01/15/2018 1:24 PM Note Text: Demi Cee updated on patient's need for increased Fi02; page out to Dr. Stevens also PROGRESS Observed: 01/15/2018 Status: COMPLETED Source: [place] 11:47 AM [facility] REPOSITORY HNO ID: [id number] Author: Dionicio Stevens Service: Vascular Surgery Author Type: Resident Type: Progress Notes Filed: 01/15/2018 11:49 AM Note Text: Vascular Surgery CVP down to 4 Increased Levo requirments Plan: - 1L Bolus LR - 25g 5% Albumin - CVVHD running positive now - transfuse a 5-pk platelets - NaPhos IV 45mEq - Calc Gluc IV 4g - recheck labs Dionicio Stevens MD PGY-4 Pager: [phone] 01/15/2018, 11:48 AM NURSING PROG Observed: 01/15/2018 Status: COMPLETED Source: [facility] 11:[address] [facility] OTHER CAMPUS REPOSITORY HNO ID: [id number] Author: Iza (Rn) MAGALY Arguelles Service: Nursing Author Type: Registered Nurse Type: Nursing Progress Note Filed: 01/15/2018 11:44 AM Note Text: Dr. Stevens updated on patient's libiale blood pressure and the need to increase levophed drip. 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 SIGNATURE: Gilbert uTcker MD PATIENT NAME: Naveen Akins DATE: January 15, 2018 TIME: 10:39 AM PAGER/CONTACT #: [phone] BLOOD GAS ARTERIAL Collected: 01/15/2018 Status: F Source: [facility] 10:00 AM HEALTH SYSTEM REPOSITORY TYPE CODE [...] -3.8 Performed By: #### ABG #### [facility] [address] [place], [place] [address] LACTIC ACID Collected: 01/15/2018 Status: F Source: [facility] 10:00 HEALTH SYSTEM REPOSITORY TYPE CODE TESTS RESULT OUT OF REFERENCE UNITS RANGE LAB LAC(LOINC) 0.4-2.0 mEq/L Lactic Acid 1.5 Performed By: #### LAC #### [address] [place], [place] [address] BASIC PANEL Collected: 01/15/2018 Status: F Source: [facility] 10:00 AM HEALTH SYSTEM REPOSITORY TYPE CODE [...] Gap 15 Performed By: #### P8 #### [place] [address] PHOSPHORUS BLOOD Collected: 01/15/2018 Status: F Source: [facility] 10:00 HEALTH SYSTEM REPOSITORY TYPE CODE TESTS RESULT OUT OF REFERENCE UNITS RANGE LAB PHOS(LOINC 2.5-4.9 mg/dL ) Phosphorus Blood 3.4 Performed By: #### PHOS #### [place] [address] HEMOGRAM Collected: 01/15/2018 Status: F Source: [facility] 10:00 HEALTH SYSTEM REPOSITORY TYPE CODE TESTS [...] 0.02 Absolute Performed By: #### CBC1 #### [place] [address] FIBRINOGEN Collected: 01/15/2018 Status: F Source: [facility] 10:00 AM HEALTH SYSTEM REPOSITORY TYPE CODE TESTS RESULT OUT OF REFERENCE UNITS RANGE LAB FIB(LOINC) 180-430 mg/dl High Fibrinogen 498 Performed By: #### FIB #### [place] [address] PROTIME Collected: 01/15/2018 Status: F Source: [facility] 10:00 AM HEALTH SYSTEM REPOSITORY TYPE CODE TESTS RESULT OUT OF REFERENCE UNITS RANGE LAB PTI(LOINC) 9.3-11.9 sec Prothrombin High Time 12.7 LAB INR(LOINC) INR 1.22 Result Comment: Standard Therapy 2.0-3.0 High Dose 2.5-3.5 Performed By: #### PT #### [place] [address] ACTIVATED PTT Collected: 01/15/2018 Status: F Source: [facility] 10:00 AM HEALTH SYSTEM REPOSITORY TYPE CODE TESTS RESULT OUT OF REFERENCE UNITS RANGE LAB APTT(LOINC 22.0-34.0 sec ) High Activated PTT 36.0 Performed By: #### APTT #### [place] [address] CONSULT PROG Observed: 01/15/2018 Status: COMPLETED Source: [facility] 9:44 AM CLINIC OTHER CAMPUS REPOSITORY HNO ID: [id number] Author: Elder Granda Service: Critical Care Author [...] PMH of AAA who was transferred to [facility] in shock 2/2 ruptured AAA c/b [...] AM PROGRESS Observed: 01/15/2018 Status: COMPLETED Source: [place] 9:[address] [facility] OTHER CAMPUS REPOSITORY O ID: [id number] Author: Kannan Felder Service: General Surgery Author Type: Resident Type: Progress Notes Filed: 01/15/2018 9:22 AM Note Text: Attestation signed by Mark Woods at 01/16/2018 11:25 AM Care per vasc gen surg available to asisst with closure if needed Mark Woods MD PROGRESS NOTE EGS Surgery Progress Note Emergency General Surgery Service Pager: For questions or concerns Mon-Tue 6a-5p please page [phone]. After 5pm and on Weekends and Holidays, please page [phone] if in ICU or [phone] if on [...] - 01/15/1865801/15/18 07 - 01/16/18 0659 Shift 9331-8989 4570-9184 2436-7749 24 Hour Total 0241-5089 5962-3152 2591-3979 24 Hour Total I N T A [...] 01/12/18 0749 Abdomen) 1000 1000 2000 Tubes 5439 424 7185 3955 75 75 Drain/Tube Output (Drain/Tube 01/12/18 0100 Hemovac Midline Anterior Abdomen) 500 1125 1625 75 75 Drain/Tube Output (Drain/Tube 01/12/18 Fecal Management System) 250 30 0 280 0 0 Output (GI Feed/Drain 01/12/18 0100) 1100 916 096 5683 0 0 Dialysis 0 924 2623 3547 [...] Noted - Ruptured abdominal aortic aneurysm (AAA) ([facility]) 01/12/2018 - Encephalopathy 01/13/2018 - DIC (disseminated intravascular coagulation) ([facility]) 01/12/2018 - Hemorrhagic shock ([facility]) 01/12/2018 - Acute respiratory failure ([facility]) 01/12/2018 - Cardiac arrest ([facility]) 01/12/2018 - Hypernatremia 01/12/2018 - Hypokalemia 01/12/2018 - Hypomagnesemia 01/12/2018 - Hypophosphatemia 01/12/2018 - Hyperchloremia 01/12/2018 - AAA (abdominal aortic aneurysm, ruptured) ([facility]) 01/12/2018 Overview Note: Added automatically from request for surgery [id number] Assessment/Plan with Ruptured AAA s/p Emergent Repair, [...] January 15, 2018 TIME: 9:18 AM PAGER: [phone] PROTIME Collected: 01/15/2018 Status: F Source: [facility] 7:45 AM HEALTH SYSTEM REPOSITORY TYPE CODE TESTS RESULT OUT OF REFERENCE UNITS RANGE LAB PTI(LOINC) 9.3-11.9 sec Prothrombin High Time 12.2 LAB INR(LOINC) INR 1.18 Result Comment: Standard Therapy 2.0-3.0 High Dose 2.5-3.5 Performed By: #### PT #### [place] [address] FIBRINOGEN Collected: 01/15/2018 Status: F Source: [facility] 7:45 AM HEALTH SYSTEM REPOSITORY TYPE CODE TESTS RESULT OUT OF REFERENCE UNITS RANGE LAB FIB(LOINC) 180-430 mg/dl High Fibrinogen 497 Performed By: #### FIB #### [place] [address] MISC. SEND OUT Collected: 01/15/2018 Status: F Source: [facility] 7:45 AM HEALTH SYSTEM REPOSITORY TYPE CODE TESTS RESULT OUT OF REFERENCE UNITS RANGE LAB NAME1(LOIN C) Test Name APTT LAB RES(LOINC) Result 45.1 sec LAB REF(LOINC) Reference Range 0.0-40.0 sec LAB ADDR(LOINC ) Lab Name/Address See below Result Comment: Testing performed at [facility] [place] [address] Performed By: #### MISC2 #### [place] [address] PROGRESS Observed: 01/15/2018 Status: COMPLETED Source: [facility] 6:29 AM CLINIC OTHER CAMPUS REPOSITORY O ID: [id number] Author: Dionicio (Res) Rodney Service: Vascular Surgery Author Type: Resident Type: Progress Notes Filed: 01/15/2018 8:11 AM Note Text: Vascular Surgery Progress Note SERVICE DATE: 01/15/2018 Vascular AND Thoracic Surgery Service Pager: For questions or concerns Mon-Fri 6a-5p please page [phone]. After 5pm and on Weekends and Holidays, please page [phone] if in ICU or [phone] if on RNF. Subjective SUBJECTIVE: SVT requiring [...] 0659 01/15/18 07 - 01/16/18 0659 Shift 4734-1422 1775-6878 6802-2052 24 Hour Total 4540-9764 5115-3495 8031-8454 24 Hour Total I N T A [...] 01/12/18 0749 Abdomen) 1000 1000 2000 Tubes 8284 682 5852 3955 Drain/Tube Output (Drain/Tube 01/12/18 0100 Hemovac Midline Anterior Abdomen) 500 1125 1625 Drain/Tube Output (Drain/Tube 01/12/18 Fecal Management System) 250 30 0 280 Output (GI Feed/Drain 01/12/18 0100) 1100 086 403 0036 Dialysis 0 924 2623 3547 Dialysis Output [...] Noted - Ruptured abdominal aortic aneurysm (AAA) ([facility]) 01/12/2018 - Encephalopathy 01/13/2018 - DIC (disseminated intravascular coagulation) ([facility]) 01/12/2018 - Hemorrhagic shock ([facility]) 01/12/2018 - Acute respiratory failure ([facility]) 01/12/2018 - Cardiac arrest (H[facility]) 01/12/2018 - Hypernatremia 01/12/2018 - Hypokalemia 01/12/2018 - Hypomagnesemia 01/12/2018 - Hypophosphatemia 01/12/2018 - Hyperchloremia 01/12/2018 - AAA (abdominal aortic aneurysm, ruptured) (HCC) 01/12/2018 Overview Note: Added automatically from request for surgery [id number] 77 year old male with Ruptured AAA [...] 1 VIEW Observed: 01/15/2018 Status: F Source: [facility] 6:00 AM HEALTH SYSTEM REPOSITORY Performed at [facility] APPROVED BY: KRISTIE KHAN MD EXAM [...] zones. PROGRESS Observed: 01/15/2018 Status: COMPLETED Source: [place] 5:[address] [facility] OTHER CAMP[facility] REPOSITORY O ID: [id number] Author: Downtime Note Service: (none) Author Type: (none) Type: Progress Notes Filed: 01/15/2018 5:12 AM Note Text: Epic Scheduled Downtime: 01/15/2018 1:05:00 AM to 01/15/2018 4:56:36 AM HEMOGRAM/DIFF Collected: 01/15/2018 Status: F Source: [facility] 4:30 AM HEALTH SYSTEM REPOSITORY TYPE CODE [...] LAB MONON(LOIN 0.30-0.82 thou/cmm C) Low Abs. Luna 0.29 LAB EOSN(LOINC 0.04-0.54 thou/cmm ) Abs. High Eosin 0.89 LAB BASON(LOIN 0.01-0.08 thou/cmm C) Abs. Baso 0.04 Result Comment: Smear scanned; tech agrees with automated differential Performed By: #### CBCD1 #### [place] [address] LACTIC ACID Collected: 01/15/2018 Status: F Source: [facility] 4:00 AM HEALTH SYSTEM REPOSITORY TYPE CODE TESTS RESULT OUT OF REFERENCE UNITS RANGE LAB LAC(LOINC) 0.4-2.0 mEq/L Lactic Acid 1.7 Performed By: #### LAC #### [place] [address] MAGNESIUM BLOOD Collected: 01/15/2018 Status: F Source: [facility] 4:00 AM HEALTH SYSTEM REPOSITORY TYPE CODE TESTS RESULT OUT OF REFERENCE UNITS RANGE LAB MAG(LOINC) 1.6-2.6 mg/dL Magnesium Blood 2.3 Performed By: #### MAG #### [place] [address] BASIC PANEL Collected: 01/15/2018 Status: F Source: [facility] 4:00 AM HEALTH SYSTEM REPOSITORY TYPE CODE [...] Gap 15 Performed By: #### P8 #### [place] [address] PHOSPHORUS BLOOD Collected: 01/15/2018 Status: F Source: [facility] 4:00 HEALTH SYSTEM REPOSITORY TYPE CODE TESTS RESULT OUT OF REFERENCE UNITS RANGE LAB PHOS(LOINC 2.5-4.9 mg/dL ) Low alert Phosphorus Blood 1.9 Result Comment: RESULT RECHECKED Performed By: #### PHOS #### [place] [address] OPERATIVE NO Observed: 01/15/2018 Status: COMPLETED Source: [facility] 12:00 AM CLINIC OTHER CAMPUS REPOSITORY O ID: [id number] Author: Venkat Paniagua Service: Vascular Surgery Author Type: Physician Type: Operative Report Filed: 01/22/2018 7:14 PM Note Text: [facility] - Operative Report SURGEON: Venkat Paniagua MD PATIENT NAME: NAVEEN AKINS CSN: [id number] DATE OF SURGERY: 01/14/2018 DATE OF : 1940 SEX/AGE: M/77 PATIENT TYPE: I HOSP SVC: LICO LOCATION: [id number] DATE OF SURGERY: 01/14/2018 SURGEON: Venkat Paniagua MD The patient is an inpatient. PREOPERATIVE DIAGNOSIS: Status post ruptured abdominal aortic aneurysm with ABThera device in place. POSTOPERATIVE DIAGNOSIS: Status post ruptured abdominal aortic aneurysm with ABThera device in place. PROCEDURE: Removal of packing from retroperitoneum, intraabdominal irrigation, examination of the retroperitoneum and bowel, and replacement of ABThera device. CONSTRUCTION CONTROLLER: WILLIE Alvarez. ANESTHESIA: General. HISTORY: This is [...] condition. Venkat Paniagua MD Vascular Surgery DENA:mika /[id number] BLOOD GAS ARTERIAL Collected: 01/14/2018 Status: F Source: [facility] 10:10 PM HEALTH SYSTEM REPOSITORY TYPE CODE [...] Excess -4.0 Performed By: #### ABG #### [place] [address] FIBRINOGEN Collected: 01/14/2018 Status: F Source: [facility] 10:10 PM HEALTH SYSTEM REPOSITORY TYPE CODE TESTS RESULT OUT OF REFERENCE UNITS RANGE LAB FIB(LOINC) 180-430 mg/dl High Fibrinogen 518 Performed By: #### FIB #### [place] [address] PROTIME Collected: 01/14/2018 Status: F Source: [facility] 10:10 PM HEALTH SYSTEM REPOSITORY TYPE CODE TESTS RESULT OUT OF REFERENCE UNITS RANGE LAB PTI(LOINC) 9.3-11.9 sec Prothrombin High Time 13.1 LAB INR(LOINC) INR 1.23 Result Comment: Standard Therapy 2.0-3.0 High Dose 2.5-3.5 Performed By: #### PT #### [facility] [address] [place] [address] ACTIVATED PTT Collected: 01/14/2018 Status: F Source: [facility] 10:10 PM HEALTH SYSTEM REPOSITORY TYPE CODE TESTS RESULT OUT OF REFERENCE UNITS RANGE LAB APTT(LOINC 22.0-34.0 sec ) High Activated PTT 37.6 Performed By: #### APTT #### [facility] [address] [place] [address] HEMOGRAM Collected: 01/14/2018 Status: F Source: [facility] 10:10 PM HEALTH SYSTEM REPOSITORY TYPE CODE [...] 10.9 Performed By: #### CBC1 #### [facility] [address] [place] [address] LACTIC ACID Collected: 01/14/2018 Status: F Source: [facility] 10:10 PM HEALTH SYSTEM REPOSITORY TYPE CODE TESTS RESULT OUT OF REFERENCE UNITS RANGE LAB LAC(LOINC) 0.4-2.0 mEq/L Lactic Acid 1.9 Performed By: #### LAC #### [facility] [address] [place] [id number] BASIC PANEL Collected: 01/14/2018 Status: F Source: [facility] 10:10 PM HEALTH SYSTEM REPOSITORY TYPE CODE [...] 13 Performed By: #### P8 #### [facility] [address] [place] [id number] ANES POST Observed: 01/14/2018 Status: COMPLETED Source: [facility] 6:38 PM CLINIC OTHER CAMPUS REPOSITORY O ID: [id number] Author: Anupam Juárez Service: Anesthesiology Author Type: [...] NURSING PROG Observed: 01/14/2018 Status: COMPLETED Source: [facility] 4:19 PM CLINIC OTHER CAMPUS REPOSITORY HNO ID: [id number] Author: Jose (Rn) MAGALY Jasso Service: Nursing Author Type: Registered Nurse Type: Nursing Progress Note Filed: 01/14/2018 4:21 PM Note Text: 1540. Noted spontaneous incease in hr to 180's. Dr. degroot in room 6mg of Adenosine ivp followed by amnio 150mg bolus and drip started at 1mg for 6hrs BLOOD GAS ARTERIAL Collected: 01/14/2018 Status: F Source: [facility] 3:55 PM HEALTH SYSTEM REPOSITORY TYPE CODE [...] Excess -4.6 Performed By: #### ABG #### [place] [address] FIBRINOGEN Collected: 01/14/2018 Status: F Source: [facility] 3[facility] PM HEALTH SYSTEM REPOSITORY TYPE CODE TESTS RESULT OUT OF REFERENCE UNITS RANGE LAB FIB(LOINC) 180-430 mg/dl High Fibrinogen 490 Performed By: #### FIB #### [place] [address] PROTIME Collected: 01/14/2018 Status: F Source: [address] [facility] SYSTEM REPOSITORY TYPE CODE TESTS RESULT OUT OF REFERENCE UNITS RANGE LAB PTI(LOINC) 9.3-11.9 sec Prothrombin High Time 13.4 LAB INR(LOINC) INR 1.31 Result Comment: Standard Therapy 2.0-3.0 High Dose 2.5-3.5 Performed By: #### PT #### [place] [address] ACTIVATED PTT Collected: 01/14/2018 Status: F Source: [facility] 3[facility] REPOSITORY TYPE CODE TESTS RESULT OUT OF REFERENCE UNITS RANGE LAB APTT(LOINC 22.0-34.0 sec ) High Activated PTT 38.6 Performed By: #### APTT #### [place] [address] LACTIC ACID Collected: 01/14/2018 Status: F Source: [facility] 3[facility] REPOSITORY TYPE CODE TESTS RESULT OUT OF REFERENCE UNITS RANGE LAB LAC(LOINC) 0.4-2.0 mEq/L High alert Lactic Acid 2.4 Performed By: #### LAC #### [place] [address] BASIC PANEL Collected: 01/14/2018 Status: F Source: [address] [facility] SYSTEM REPOSITORY TYPE CODE TESTS [...] Gap 14 Performed By: #### P8 #### [place] [address] TROPONIN I Collected: 01/14/2018 Status: F Source: [facility] [address] [place] [address] SYSTEM REPOSITORY TYPE CODE TESTS RESULT OUT OF REFERENCE UNITS RANGE LAB TROP(LOINC) 0.015-0.045 ng/ml High Troponin I 0.228 Performed By: #### TROP #### [place] [address] HEPATIC PANEL Collected: 01/14/2018 Status: F Source: [facility] 3:55 HEALTH SYSTEM REPOSITORY TYPE CODE TESTS [...] result reportable. 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, pressors; Echo EF 55%-SVT related to meds, mileau -On IV Amio -now sinus tach will follow Thanks Gilbert Tucker MD Pager [phone] EKG (AK,AV,EU,FV,HL,CYNTHIA,MM,SP) Observed: Status: F Source: [facility] 01/14/2018 2:46 PM CLINIC OTHER CAMPUS REPOSITORY NAME : NAVEEN AKINS PID : [id number] : 1940 Gender : Male Race : ORD : [id number] Procedure Date : Jan 14 2018 14:46 [...] ms QTC Calculation(Bezet) : 583 ms P [place] : 15 degrees R [place] : -20 degrees T [place] : 23 degrees Test Reason : Arrhythmia Location : 6 : [facility]ICU 3233 Overread By : MD ELAM G Editted By : MD ELAM G Referred By : PAULO LOVELACE Acquired by : LAM HOWELL PROGRESS Observed: 01/14/2018 Status: COMPLETED Source: [facility] 2:18 PM CLINIC OTHER CAMPUS REPOSITORY HNO ID: [id number] Author: Paulo (Assembler For Puller Over Hand) Radu Service: Critical Care Author Type: Nurse [...] male with H/O AAA was transferred from [place] in shock 2/2 ruptured AAA s/p cardiac [...] PM PROGRESS Observed: 01/14/2018 Status: COMPLETED Source: [facility] 12:39 PM CLINIC OTHER CAMPUS REPOSITORY HNO ID: [id number] Author: Roxane (Rn) MAGALY Silva Service: Dialysis Author Type: Registered Nurse Type: Progress Notes Filed: 01/14/2018 12:40 PM Note Text: CRRT restarted without problem. Report given to HEARING AID DISPENSER. PT stable BLOOD GAS ARTERIAL Collected: 01/14/2018 Status: F Source: [facility] 12:00 PM HEALTH SYSTEM REPOSITORY TYPE [...] Excess -3.8 Performed By: #### ABG #### [place] [address] HEMOGRAM Collected: 01/14/2018 Status: F Source: [facility] 12:00 PM HEALTH SYSTEM REPOSITORY TYPE [...] MPV 10.7 Performed By: #### CBC1 #### [place] [address] BASIC PANEL Collected: 01/14/2018 Status: F Source: [facility] 12:00 HEALTH SYSTEM REPOSITORY TYPE CODE TESTS [...] Gap 14 Performed By: #### P8 #### [place] [address] LACTIC ACID Collected: 01/14/2018 Status: F Source: [facility] 12:00 HEALTH SYSTEM REPOSITORY TYPE CODE TESTS RESULT OUT OF REFERENCE UNITS RANGE LAB LAC(LOINC) 0.4-2.0 mEq/L Lactic Acid 1.9 Performed By: #### LAC #### [place] [address] FIBRINOGEN Collected: 01/14/2018 Status: F Source: [facility] 12:[facility] REPOSITORY TYPE CODE TESTS RESULT OUT OF REFERENCE UNITS RANGE LAB FIB(LOINC) 180-430 mg/dl Fibrinogen 374 Performed By: #### FIB #### [place] [address] PROTIME Collected: 01/14/2018 Status: F Source: [facility] 12:00 PM HEALTH SYSTEM REPOSITORY TYPE CODE TESTS RESULT OUT OF REFERENCE UNITS RANGE LAB PTI(LOINC) 9.3-11.9 sec Prothrombin High Time 15.0 LAB INR(LOINC) INR 1.48 Result Comment: Standard Therapy 2.0-3.0 High Dose 2.5-3.5 Performed By: #### PT #### [facility] [address] [place] [address] ACTIVATED PTT Collected: 01/14/2018 Status: F Source: [facility] 12:00 HEALTH SYSTEM REPOSITORY TYPE CODE TESTS RESULT OUT OF REFERENCE UNITS RANGE LAB APTT(LOINC 22.0-34.0 sec ) High Activated PTT 48.7 Performed By: #### APTT #### [facility] [address] [place], [place] [address] PROGRESS Observed: 01/14/2018 Status: COMPLETED Source: [place] 11:[address] [facility] OTHER CAMPUS REPOSITORY HNO ID: [id number] Author: Kannan Felder Service: General Surgery Author Type: Resident Type: Progress Notes Filed: 01/14/2018 12:04 PM Note Text: Attestation signed by Mark Woods at 01/14/2018 2:33 PM Seen in OR Mark Woods MD PROGRESS NOTE EGS Surgery Progress Note Emergency General Surgery Service Pager: For questions or concerns Mon-Tue 6a-5p please page [phone]. After 5pm and on Weekends and Holidays, please page [phone] if in ICU or [phone] if on RNF. SERVICE DATE: 01/14/2018 SERVICE [...] 0659 01/14/18 07 - 01/15/18 0659 Shift 5681-1020 4310-7662 6505-0909 24 Hour Total 3632-8638 8524-9315 0250-2521 24 Hour Total I N T A [...] Abdomen) 2500 700 3200 500 500 Tubes 233 425 1013 1950 1350 1350 Drain/Tube Output (Drain/Tube 01/12/18 [...] Noted - Ruptured abdominal aortic aneurysm (AAA) ([facility]) 01/12/2018 - Encephalopathy 01/13/2018 - DIC (disseminated intravascular coagulation) ([facility]) 01/12/2018 - Hemorrhagic shock ([facility]) 01/12/2018 - Acute respiratory failure ([facility]) 01/12/2018 - Cardiac arrest ([facility]) 01/12/2018 - Hypernatremia 01/12/2018 - Hypokalemia 01/12/2018 - Hypomagnesemia 01/12/2018 - Hypophosphatemia 01/12/2018 - Hyperchloremia 01/12/2018 - AAA (abdominal aortic aneurysm, ruptured) ([facility]) 01/12/2018 Overview Note: Added automatically from request for surgery [id number] Assessment/Plan with Ruptured AAA s/p Emergent Repair, [...] January 14, 2018 TIME: 12:02 PM PAGER: [phone] PROGRESS Observed: 01/14/2018 Status: COMPLETED Source: [place] 10:[address] [facility] OTHER CAMPUS REPOSITORY O ID: [id number] Author: Renate Handy Service: Nephrology Author Type: [...] do not hesitate to contact me at [phone] with any concerns SIGNATURE: Renate Handy DO PATIENT NAME: Naveen Akins DATE: January 14, 2018 TIME: 10:08 AM PAGER/CONTACT #: NURA PREOP Observed: 01/14/2018 Status: COMPLETED Source: [facility] 8:[address] [facility] OTHER CAMP[facility] REPOSITORY O ID: [id number] Author: Anupam Juárez Service: Anesthesiology Author Type: Physician Type: Anesthesia PreOp Filed: 01/14/2018 8:15 AM Note Text: ANESTHESIOLOGY DAY OF SURGERY NOTE SERVICE DATE: 01/14/2018 SERVICE TIME: 8:12 AM : 1940 Procedure(s) (LRB): EXPLORATION ABDOMINAL VESSELS (N/A) OMENTECTOMY (N/A) Surgeon(s): Venkat oWods Estimated body mass index is 26.85 kg/m? [...] January 14, 2018 TIME: 8:12 AM CSN: [id number] CONSULT PROG Observed: 01/14/2018 Status: COMPLETED Source: [facility] 7:27 AM CLINIC OTHER CAMPUS REPOSITORY HNO ID: [id number] Author: Elder Yu) Kalee Service: Critical Care [...] PMH of AAA who was transferred to [facility] in shock 2/2 ruptured AAA c/b [...] AM PROGRESS Observed: 01/14/2018 Status: COMPLETED Source: [facility] 6:42 AM CLINIC OTHER CAMPUS REPOSITORY O ID: [id number] Author: Dionicio (Luther Stevens Service: Vascular Surgery Author Type: Resident Type: Progress Notes Filed: 01/14/2018 8:48 AM Note Text: Vascular Surgery Progress Note SERVICE DATE: 01/14/2018 Vascular AND Thoracic Surgery Service Pager: For questions or concerns Mon-Fri 6a-5p please page [phone]. After 5pm and on Weekends and Holidays, please page [phone] if in ICU or [phone] if on [...] - 01/14/1865801/14/18 07 - 01/15/18 0659 Shift 0225-9484 7605-6438 4879-5863 24 Hour Total 8093-3986 7908-4782 0986-9487 24 Hour Total I N T A [...] 01/12/18 0749 Abdomen) 2500 700 3200 Tubes 470 597 9455 1950 Drain/Tube Output (Drain/Tube 01/12/18 0100 Hemovac [...] Noted - Ruptured abdominal aortic aneurysm (AAA) ([facility]) 01/12/2018 - Encephalopathy 01/13/2018 - DIC (disseminated intravascular coagulation) ([facility]) 01/12/2018 - Hemorrhagic shock ([facility]) 01/12/2018 - Acute respiratory failure ([facility]) 01/12/2018 - Cardiac arrest ([facility]) 01/12/2018 - Hypernatremia 01/12/2018 - Hypokalemia 01/12/2018 - Hypomagnesemia 01/12/2018 - Hypophosphatemia 01/12/2018 - Hyperchloremia 01/12/2018 - AAA (abdominal aortic aneurysm, ruptured) ([facility]) 01/12/2018 Overview Note: Added automatically from request for surgery [id number] 77 year old male with Ruptured AAA [...] 1 VIEW Observed: 01/14/2018 Status: F Source: [facility] 6:04 AM HEALTH SYSTEM REPOSITORY Performed at [facility] APPROVED BY: KRISTIE KHAN MD EXAM [...] described. FIBRINOGEN Collected: 01/14/2018 Status: F Source: [facility] 4:40 AM HEALTH SYSTEM REPOSITORY TYPE CODE TESTS RESULT OUT OF REFERENCE UNITS RANGE LAB FIB(LOINC) 180-430 mg/dl High Fibrinogen 452 Performed By: #### FIB #### [place] [address] ACTIVATED PTT Collected: 01/14/2018 Status: F Source: [facility] 4:40 AM HEALTH SYSTEM REPOSITORY TYPE CODE TESTS RESULT OUT OF REFERENCE UNITS RANGE LAB APTT(LOINC 22.0-34.0 sec ) High Activated PTT 42.7 Performed By: #### APTT #### [place] [address] PROTIME Collected: 01/14/2018 Status: F Source: [facility] 4:40 AM HEALTH SYSTEM REPOSITORY TYPE CODE TESTS RESULT OUT OF REFERENCE UNITS RANGE LAB PTI(LOINC) 9.3-11.9 sec Prothrombin High Time 14.9 LAB INR(LOINC) INR 1.48 Result Comment: Standard Therapy 2.0-3.0 High Dose 2.5-3.5 Performed By: #### PT #### [facility] [address] [place] [id number] HEMOGRAM/DIFF Collected: 01/14/2018 Status: F Source: [facility] 4:40 HEALTH SYSTEM REPOSITORY TYPE CODE TESTS [...] LAB MONON(LOIN 0.30-0.82 thou/cmm C) Low Abs. Luna 0.27 LAB EOSN(LOINC 0.04-0.54 thou/cmm ) Abs. High Eosin 0.83 LAB BASON(LOIN 0.01-0.08 thou/cmm C) Abs. Baso 0.02 Result Comment: Smear scanned; tech agrees with automated differential Performed By: #### CBCD1 #### [facility] [address] [place] [address] MAGNESIUM BLOOD Collected: 01/14/2018 Status: F Source: [facility] 4:40 AM HEALTH SYSTEM REPOSITORY TYPE CODE TESTS RESULT OUT OF REFERENCE UNITS RANGE LAB MAG(LOINC) 1.6-2.6 mg/dL Magnesium Blood 1.9 Performed By: #### MAG #### [place] [address] PHOSPHORUS BLOOD Collected: 01/14/2018 Status: F Source: [facility] 4:40 HEALTH SYSTEM REPOSITORY TYPE CODE TESTS RESULT OUT OF REFERENCE UNITS RANGE LAB PHOS(LOINC 2.5-4.9 mg/dL ) Phosphorus Blood 3.1 Performed By: #### PHOS #### [place] [address] BASIC PANEL Collected: 01/14/2018 Status: F Source: [facility] 4:40 HEALTH SYSTEM REPOSITORY TYPE CODE TESTS [...] Gap 13 Performed By: #### P8 #### [address] [place] [address] LACTIC ACID Collected: 01/14/2018 Status: F Source: [facility] 4:40 AM HEALTH SYSTEM REPOSITORY TYPE CODE TESTS RESULT OUT OF REFERENCE UNITS RANGE LAB LAC(LOINC) 0.4-2.0 mEq/L High alert Lactic Acid 2.4 Performed By: #### LAC #### [facility] [address] [place], [place] [address] CONSULT Observed: 01/14/2018 Status: COMPLETED Source: [facility] 12:00 AM CLINIC OTHER CAMPUS REPOSITORY HNO ID: [id number] Author: Gilbert Tucker Service: Cardiovascular Medicine Author Type: Physician Type: Consults Filed: 01/15/2018 11:32 AM Note Text: [facility] - Consultation PATIENT NAME: NAVEEN AKINS CSN: [id number] DATE OF : 1940 SEX/AGE: M/77 PATIENT TYPE: I HOSP SVC: [facility] LOCATION: [id number] DATE OF SERVICE: 01/14/[address] Venkat Paniagua. INDICATION: SVT. HISTORY OF PRESENT ILLNESS: This is very ill 77-year-old gentleman transferred from [facility] couple days ago. He had an AAA [...] with you. Gilbert Tucker MD Cardiology DAC:modl /[id number] BLOOD GAS ARTERIAL Collected: 01/13/2018 Status: F [...] Excess -2.2 Performed By: #### ABG #### [place] [address] BASIC PANEL Collected: 01/13/2018 Status: F Source: [facility] [address] [place] [address] SYSTEM REPOSITORY TYPE CODE TESTS RESULT OUT [...] Gap 11 Performed By: #### P8 #### [place] [address] PROTIME Collected: 01/13/2018 Status: F Source: [facility] 10:15 [facility] SYSTEM REPOSITORY TYPE CODE TESTS RESULT OUT OF REFERENCE UNITS RANGE LAB PTI(LOINC) 9.3-11.9 sec Prothrombin High Time 14.8 LAB INR(LOINC) INR 1.46 Result Comment: Standard Therapy 2.0-3.0 High Dose 2.5-3.5 Performed By: #### PT #### [facility] [address] [place] [address] LACTIC ACID Collected: 01/13/2018 Status: F Source: [facility] 10:[facility] SYSTEM REPOSITORY TYPE CODE TESTS RESULT OUT OF REFERENCE UNITS RANGE LAB LAC(LOINC) 0.4-2.0 mEq/L High alert Lactic Acid 2.6 Performed By: #### LAC #### [facility] [address] [place] [address] HEMOGRAM Collected: 01/13/2018 Status: F Source: [facility] 10:15 HEALTH SYSTEM REPOSITORY TYPE CODE TESTS [...] 11.2 Performed By: #### CBC1 #### [facility] [address] [place] [address] ACTIVATED PTT Collected: 01/13/2018 Status: F Source: [facility] 10:15 HEALTH SYSTEM REPOSITORY TYPE CODE TESTS RESULT OUT OF REFERENCE UNITS RANGE LAB APTT(LOINC 22.0-34.0 sec ) High Activated PTT 38.7 Performed By: #### APTT #### [place] [address] PROGRESS Observed: 01/13/2018 Status: COMPLETED Source: [facility] 9:35 PM CLINIC OTHER CAMPUS REPOSITORY O ID: [id number] Author: Chente Whittaker Service: Critical Care Author [...] PM HGB Collected: 01/13/2018 Status: F Source: [facility] 9:20 PM HEALTH SYSTEM REPOSITORY TYPE CODE TESTS RESULT OUT OF RANGE REFERENCE UNITS LAB HGBI(LOINC) 13.7-17.5 g/dL Low Hgb 13.0 Performed By: #### HGBI #### [facility] [address] [place], [place] [address] EKG (AK,AV,EU,FV,HL,CYNTHIA,MM,SP) Observed: Status: F Source: [place] 01/13/2018 8:[address] [facility] OTHER [facility] REPOSITORY NAME : NAVEEN AKINS PID : [id number] : 1940 Gender : Male Race : [...] ms QTC Calculation(Bezet) : 458 ms R [place] : -16 degrees T [place] : 38 degrees Test Reason : Arrhythmia Location : 6 : [place] [address] Overread By : MD ELAM G Editted By : MD ELAM G Referred By : PAULO LOVELACE Acquired by : Indira Silva PROGRESS Observed: 01/13/2018 Status: COMPLETED Source: [place] 7:00 PM [facility] REPOSITORY HNO ID: [id number] Author: Tim (Rn) MAGALY Santacruz Service: Dialysis Author Type: Registered Nurse Type: Progress Notes Filed: 01/13/2018 7:01 PM Note Text: CRRT tx initiated as ordered. Pt tolerating tx well thus far. See flow record for tx data. PHERESED PLATELETS Collected: 01/13/2018 Status: F Source: [facility] 5:24 PM HEALTH SYSTEM REPOSITORY TYPE CODE TESTS RESULT OUT OF REFERENCE UNITS RANGE LAB PPHR(LOINC) Pheresed Plts Done unit 1 Performed By: #### PPHRS #### [facility] [address] [place] [id number] CONSULT Observed: 01/13/2018 Status: COMPLETED Source: [facility] 5:23 PM CLINIC OTHER CAMPUS REPOSITORY [facility] ID: [id number] Author: Mark Woods Service: General Surgery Author [...] Noted - Ruptured abdominal aortic aneurysm (AAA) ([facility]) 01/12/2018 - Encephalopathy 01/13/2018 - DIC (disseminated intravascular coagulation) ([facility]) 01/12/2018 - Hemorrhagic shock ([facility]) 01/12/2018 - Acute respiratory failure ([facility]) 01/12/2018 - Cardiac arrest ([facility]) 01/12/2018 - Hypernatremia 01/12/2018 - Hypokalemia 01/12/2018 - Hypomagnesemia 01/12/2018 - Hypophosphatemia 01/12/2018 - Hyperchloremia 01/12/2018 - AAA (abdominal aortic aneurysm, ruptured) ([facility]) 01/12/2018 Overview Note: Added automatically from request for surgery [id number] Assessment and Plan: Seen in OR today. No sign of ischemic colon Mark Woods MD, FACS Section of Trauma, Surgery Critical Care, and Acute Care Surgery Pager: [phone] Office: [phone] January 14, 2018 ========= SERVICE DATE: 01/13/2018 SERVICE TIME: 8:02 PM REASON FOR CONSULT: Intra-op eval of bowel REQUESTING PHYSICIAN: Dr. Paniagua PRIMARY CARE PHYSICIAN: Ji Hurst MD Subjective HISTORY OF PRESENT ILLNESS: [...] questions or concerns Mon-Fri 6a-5p please page [phone]. After 5pm and on Weekends and Holidays, please page [phone] if in ICU or [phone] if on RNF. PHERESED PLATELETS Collected: 01/13/2018 Status: F Source: [facility] 5:23 PM HEALTH SYSTEM REPOSITORY TYPE CODE TESTS RESULT OUT OF REFERENCE UNITS RANGE LAB PPHR(LOINC) Pheresed Plts Done unit 1 Performed By: #### PPHRS #### [place] [address] CASE MGT INIT Observed: 01/13/2018 Status: COMPLETED Source: [facility] 4:44 PM CLINIC OTHER CAMPUS REPOSITORY HNO ID: [id number] Author: Lorrie (Rn) MAGALY Bo Service: (none) Author Type: Registered Nurse Type: Care Mgt Initial Assessment Filed: 01/13/2018 5:00 PM Note Text: CARE MANAGEMENT: ASSESSMENT AND DISCHARGE PLAN SERVICE DATE: 01/13/2018 SERVICE TIME: 4:46 PM PRIMARY CARE PHYSICIAN: Ji Hurst MD ADMISSION STATUS: Inpatient MEDICAL: Patient/Straight Knife Cutter Machine Stated Goals: pt intubated, family hopeful for [...] therapy Has the Patient Been in a Nursing Home Facility in the Past 30 days? 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 Primary Contact: Extended Emergency Contact Information Primary Emergency Contact: Shelly Mckeon Address: [address] [place] [address] Relation: Spouse Supportive: Yes Other Important Patient [...] 0 I feel financially burdened by my [id number] expenses for my prescription medication: Disagree mostly [...] 13, 2018 TIME: 4:45 PM PAGER/CONTACT #: [phone] BLOOD GAS ARTERIAL Collected: 01/13/2018 Status: F Source: [facility] 4:00 PM HEALTH SYSTEM REPOSITORY TYPE CODE [...] -2.8 Performed By: #### ABG #### [facility] [address] [place] [id number] HEMOGRAM Collected: 01/13/2018 Status: F Source: [facility] 4:00 HEALTH SYSTEM REPOSITORY TYPE CODE TESTS [...] 11.2 Performed By: #### CBC1 #### [facility] [address] [place], [place] [address] BASIC PANEL Collected: 01/13/2018 Status: F Source: [facility] 4:00 HEALTH SYSTEM REPOSITORY TYPE CODE TESTS [...] Gap 14 Performed By: #### P8 #### [place] [address] FIBRINOGEN Collected: 01/13/2018 Status: F Source: [facility] 4:00 HEALTH SYSTEM REPOSITORY TYPE CODE TESTS RESULT OUT OF REFERENCE UNITS RANGE LAB FIB(LOINC) 180-430 mg/dl Fibrinogen 371 Performed By: #### FIB #### [place] [address] PROTIME Collected: 01/13/2018 Status: F Source: [facility] 4:00 HEALTH SYSTEM REPOSITORY TYPE CODE TESTS RESULT OUT OF REFERENCE UNITS RANGE LAB PTI(LOINC) 9.3-11.9 sec Prothrombin High Time 16.0 LAB INR(LOINC) INR 1.55 Result Comment: Standard Therapy 2.0-3.0 High Dose 2.5-3.5 Performed By: #### PT #### [place] [address] ACTIVATED PTT Collected: 01/13/2018 Status: F Source: [facility] 4:00 HEALTH SYSTEM REPOSITORY TYPE CODE TESTS RESULT OUT OF REFERENCE UNITS RANGE LAB APTT(LOINC 22.0-34.0 sec ) High Activated PTT 37.6 Performed By: #### APTT #### [place] [address] LACTIC ACID Collected: 01/13/2018 Status: F Source: [facility] 4:00 HEALTH SYSTEM REPOSITORY TYPE CODE TESTS RESULT OUT OF REFERENCE UNITS RANGE LAB LAC(LOINC) 0.4-2.0 mEq/L High alert Lactic Acid 4.0 Performed By: #### LAC #### [place] [address] RBC PRODUCTS Collected: 01/13/2018 Status: F Source: [facility] 2:08 PM HEALTH SYSTEM REPOSITORY TYPE CODE TESTS RESULT OUT OF REFERENCE UNITS RANGE LAB UNIT1(LOINC ) Xmatch Unit 1 see below Result Comment: Compatible LAB UNIT2(LOINC) Xmatch Unit 2 see below Result Comment: Compatible Performed By: #### RBCPS #### [facility] [address] [place] [address] PROGRESS Observed: 01/13/2018 Status: COMPLETED Source: [facility] 12:07 PM CLINIC OTHER CAMPUS REPOSITORY HNO ID: [id number] Author: Wai Barcenas Service: Cardiovascular Medicine Author [...] Paniagua and Dr. Granda SIGNATURE: Wai Barcenas APRN.HUMAN RESOURCES TEAM MEMBER PATIENT NAME: Naveen Akins DATE: January 13, 2018 TIME: 12:08 PM PAGER/CONTACT #: [phone] YAA [id number] PROCEDURE Observed: 01/13/2018 Status: COMPLETED Source: [facility] 11:38 AM CLINIC OTHER CAMPUS REPOSITORY HNO ID: [id number] Author: Shen Lorenzo Service: Nephrology Author Type: Physician Type: Procedures Filed: 01/13/2018 12:27 PM Note Text: BEDSIDE PROCEDURE NOTE DIALYSIS CATHETER Date/Start Time: 01/13/2018 11:39 AM Performed by: SHEN LORENZO Authorized by: SHEN LORENZO Consent/[place] Protocol Written Consent Obtained: Yes Sign In [...] to clinical factors necessitating an emergent procedure [facility] [place] Insertion Checklist Utilized: yes Medications: [...] 1 VIEW Observed: 01/13/2018 Status: F Source: [facility] 11:34 AM HEALTH SYSTEM REPOSITORY Performed at [facility] APPROVED BY: Yajaira Veronica MD EXAM [...] lungs. CONSULT Observed: 01/13/2018 Status: COMPLETED Source: [facility] 11:15 AM CLINIC OTHER CAMPUS REPOSITORY HNO ID: [id number] Author: Shen Lorenzo Service: Nephrology Author Type: Physician Type: Consults Filed: 01/13/2018 11:38 AM Note Text: [facility] [place] [address] [place], [place] [id number] Consult Note Patient's Name: Naveen Akins 11:16 AM 01/13/2018 Reason for Consult: TERENCE ATTENDING/ADMITTING PHYSICIAN:Venkat Paniagua History of Present Ilness: Naveen Akins is a 77 year old male with past history of CAD (remote PCI/stent placement) and HTN who is admitted with ruptured AAA yesterday. Pt was life flight from [place] ED where ruptured AAA was diagnosed. Pt [...] Also discussed with Dr. Granda, Wai Barcenas, CHILD CARE COOK, and Bedside RN (Jose). PAST MEDICAL HISTORY [...] is anuric with increased pressor requirement. D/w fine arts model, I agree that the pt will benefit [...] do not hesitate to contact me at [phone] with any concerns. Rosanna Talbert MD, (Shen Lorenzo) CONSULT PROG Observed: 01/13/2018 Status: COMPLETED Source: [facility] 11:12 AM CLINIC OTHER CAMPUS REPOSITORY HNO ID: [id number] Author: Elder Yu) Kalee Service: Critical Care [...] PMH of AAA who was transferred to [facility] in shock 2/2 ruptured AAA c/b [...] GAS ARTERIAL Collected: 01/13/2018 Status: F Source: [facility] 10:15 AM HEALTH SYSTEM REPOSITORY TYPE CODE [...] -3.0 Performed By: #### ABG #### [facility] [address] [place] [id number] HEMOGRAM Collected: 01/13/2018 Status: F Source: [facility] 10:15 AM HEALTH SYSTEM REPOSITORY TYPE CODE [...] MPV 10.6 Performed By: #### CBC1 #### [place] [address] BASIC PANEL Collected: 01/13/2018 Status: F Source: [facility] 10:15 AM HEALTH SYSTEM REPOSITORY TYPE CODE [...] 16 Performed By: #### P8 #### [facility] [address] [place] [address] CREATININE,URINE Collected: 01/13/2018 Status: F Source: [place] 10:15 [facility] SYSTEM REPOSITORY TYPE CODE TESTS RESULT OUT OF RANGE REFERENCE UNITS LAB CREAU(LOINC mg/dL ) 35.9 Creatinine,U rine Performed By: #### CREAU #### [place] [address] SODIUM,URINE Collected: 01/13/2018 Status: F Source: [facility] 10:15 [facility] SYSTEM REPOSITORY TYPE CODE TESTS RESULT OUT OF RANGE REFERENCE UNITS LAB NAUR(LOINC) mEq/L 57 Sodium,Urine Performed By: #### NAUR #### [place] [address] LACTIC ACID Collected: 01/13/2018 Status: F Source: [facility] 10:15 [facility] SYSTEM REPOSITORY TYPE CODE TESTS RESULT OUT OF REFERENCE UNITS RANGE LAB LAC(LOINC) 0.4-2.0 mEq/L High alert Lactic Acid 5.5 Performed By: #### LAC #### [place] [address] PROTIME Collected: 01/13/2018 Status: F Source: [facility] 10:15 [facility] SYSTEM REPOSITORY TYPE CODE TESTS RESULT OUT OF REFERENCE UNITS RANGE LAB PTI(LOINC) 9.3-11.9 sec Prothrombin High Time 15.6 LAB INR(LOINC) INR 1.59 Result Comment: Standard Therapy 2.0-3.0 High Dose 2.5-3.5 Performed By: #### PT #### [place] [address] ACTIVATED PTT Collected: 01/13/2018 Status: F Source: [facility] 10:15 [facility] SYSTEM REPOSITORY TYPE CODE TESTS RESULT OUT OF REFERENCE UNITS RANGE LAB APTT(LOINC 22.0-34.0 sec ) High Activated PTT 40.9 Performed By: #### APTT #### [place] [address] FIBRINOGEN Collected: 01/13/2018 Status: F Source: [facility] 10:15 [facility] SYSTEM REPOSITORY TYPE CODE TESTS RESULT OUT OF REFERENCE UNITS RANGE LAB FIB(LOINC) 180-430 mg/dl Fibrinogen 311 Performed By: #### FIB #### [facility] [address] [place] [id number] PROGRESS Observed: 01/13/2018 Status: COMPLETED Source: [facility] 6:20 AM CLINIC OTHER CAMPUS REPOSITORY HNO ID: [id number] Author: Dionicio Stevens Service: Vascular Surgery Author [...] questions or concerns Mon-Fri 6a-5p please page [phone]. After 5pm and on Weekends and Holidays, please page [phone] if in ICU or [phone] if on [...] 0659 01/13/18 07 - 01/14/18 0659 Shift 3323-7989 9513-1247 5956-7435 24 Hour Total 2630-0273 5510-5464 9928-7523 24 Hour Total I N T A K E IV 1600 5100 6700 IVPB 1600 50 1650 Potassium IVPB 300 300 LR 3000 3000 NORepinephrine Volume 200 200 ALBUMIN (mL) 1500 1500 MAGNESIUM SULFATE 50 50 Blood Products 1848 890 3555 PRBC Intake (mL) 900 900 Platelet mL [...] Noted - Ruptured abdominal aortic aneurysm (AAA) ([facility]) 01/12/2018 - DIC (disseminated intravascular coagulation) ([facility]) 01/12/2018 - Hemorrhagic shock ([facility]) 01/12/2018 - Acute respiratory failure ([facility]) 01/12/2018 - Cardiac arrest ([facility]) 01/12/2018 - Hypernatremia 01/12/2018 - Hypokalemia 01/12/2018 [...] MAGNESIUM BLOOD Collected: 01/13/2018 Status: F Source: [facility] 6:15 AM HEALTH SYSTEM REPOSITORY TYPE CODE TESTS RESULT OUT OF REFERENCE UNITS RANGE LAB MAG(LOINC) 1.6-2.6 mg/dL Low Magnesium Blood 1.3 Performed By: #### MAG #### [place] [address] CHEST 1 VIEW Observed: 01/13/2018 Status: F Source: [facility] 4:57 AM HEALTH SYSTEM REPOSITORY Performed at [facility] APPROVED BY: Yahir Grande MD EXAM [...] likely. FIBRINOGEN Collected: 01/13/2018 Status: F Source: [facility] 4:55 HEALTH SYSTEM REPOSITORY TYPE CODE TESTS RESULT OUT OF REFERENCE UNITS RANGE LAB FIB(LOINC) 180-430 mg/dl Fibrinogen 255 Performed By: #### FIB #### [place] [address] PROTIME Collected: 01/13/2018 Status: F Source: [facility] 4:[facility] SYSTEM REPOSITORY TYPE CODE TESTS RESULT OUT OF REFERENCE UNITS RANGE LAB PTI(LOINC) 9.3-11.9 sec Prothrombin High Time 14.7 LAB INR(LOINC) INR 1.43 Result Comment: Standard Therapy 2.0-3.0 High Dose 2.5-3.5 Performed By: #### PT #### [place] [address] ACTIVATED PTT Collected: 01/13/2018 Status: F Source: [facility] 4:55 HEALTH SYSTEM REPOSITORY TYPE CODE TESTS RESULT OUT OF REFERENCE UNITS RANGE LAB APTT(LOINC 22.0-34.0 sec ) High Activated PTT 36.5 Performed By: #### APTT #### [place] [address] LACTIC ACID Collected: 01/13/2018 Status: F Source: [place] [address]:[address] [place] [address] SYSTEM REPOSITORY TYPE CODE TESTS RESULT OUT OF REFERENCE UNITS RANGE LAB LAC(LOINC) 0.4-2.0 mEq/L High alert Lactic Acid 6.4 Performed By: #### LAC #### [place] [address] PHOSPHORUS BLOOD Collected: 01/13/2018 Status: F Source: [address] HE[facility] SYSTEM REPOSITORY TYPE CODE TESTS RESULT OUT OF REFERENCE UNITS RANGE LAB PHOS(LOINC 2.5-4.9 mg/dL ) Phosphorus Blood 4.8 Performed By: #### PHOS #### [facility] [address] [place] [address] BASIC PANEL Collected: 01/13/2018 Status: F Source: [place] [address]:[facility] SYSTEM REPOSITORY TYPE CODE [...] 16 Performed By: #### P8 #### [facility] [address] [place] [address] HEMOGRAM/DIFF Collected: 01/13/2018 Status: F Source: [address] [facility] SYSTEM REPOSITORY TYPE CODE TESTS [...] Lymph 0.82 LAB MONON(LOINC) 0.30-0.82 thou/cmm Abs. Luna 0.30 LAB EOSN(LOINC) 0.04-0.54 thou/cmm Abs. Eosin 0.45 LAB BASON(LOINC) 0.01-0.08 thou/cmm Abs. Baso 0.03 Result Comment: Smear scanned; tech agrees with automated differential Performed By: #### CBCD1 #### [place] [address] BLOOD GAS ARTERIAL Collected: 01/12/2018 Status: F Source: [facility] 10:55 PM HEALTH SYSTEM REPOSITORY TYPE CODE [...] Excess -1.9 Performed By: #### ABG #### [place] [address] BASIC PANEL Collected: 01/12/2018 Status: F Source: [address] [facility] SYSTEM REPOSITORY TYPE CODE TESTS [...] Gap 14 Performed By: #### P8 #### [place] [address] LACTIC ACID Collected: 01/12/2018 Status: F Source: [address] [facility] SYSTEM REPOSITORY TYPE CODE TESTS RESULT OUT OF REFERENCE UNITS RANGE LAB LAC(LOINC) 0.4-2.0 mEq/L High alert Lactic Acid 6.8 Performed By: #### LAC #### [place] [address] HEMOGRAM Collected: 01/12/2018 Status: F Source: [address] [facility] SYSTEM REPOSITORY TYPE CODE TESTS [...] MPV 10.2 Performed By: #### CBC1 #### [place] [address] FIBRINOGEN Collected: 01/12/2018 Status: F Source: [address] [facility] SYSTEM REPOSITORY TYPE CODE TESTS RESULT OUT OF REFERENCE UNITS RANGE LAB FIB(LOINC) 180-430 mg/dl Fibrinogen 232 Performed By: #### FIB #### [place] [address] PROTIME Collected: 01/12/2018 Status: F Source: [address] [facility] SYSTEM REPOSITORY TYPE CODE TESTS RESULT OUT OF REFERENCE UNITS RANGE LAB PTI(LOINC) 9.3-11.9 sec Prothrombin High Time 13.8 LAB INR(LOINC) INR 1.41 Result Comment: Standard Therapy 2.0-3.0 High Dose 2.5-3.5 Performed By: #### PT #### [place] [address] ACTIVATED PTT Collected: 01/12/2018 Status: F Source: [address] [facility] SYSTEM REPOSITORY TYPE CODE TESTS RESULT OUT OF REFERENCE UNITS RANGE LAB APTT(LOINC 22.0-34.0 sec ) High Activated PTT 34.9 Performed By: #### APTT #### [place] [address] PROCALCITONIN Collected: 01/12/2018 Status: F Source: [address] [facility] REPOSITORY TYPE CODE TESTS [...] procalcitonin elevations. Performed By: #### PRCAS #### [place] [address] Observed: 01/12/2018 Status: F [facility] SYSTEM RESPIRATORY REPOSITORY Test performed at [facility] No growth Few WBC No organisms seen Performed By: #### C_RES #### [place] [address] Observed: 01/12/2018 Status: F Source: [facility] BLOOD 10:55 PM HEALTH SYSTEM REPOSITORY Test performed at [facility] No growth Performed By: #### C_BLO #### [place] [address] PROGRESS Observed: 01/12/2018 Status: COMPLETED Source: [place] 10:14 PM CLINIC OTHER CAMPUS REPOSITORY HNO ID: [id number] Author: Chente Whittaker Service: Critical Care Author [...] ANES POST Observed: 01/12/2018 Status: COMPLETED Source: [place] 6:[address] [facility] OTHER CAMPUS REPOSITORY O ID: [id number] Author: Matt Teresa MD Service: Anesthesiology Author [...] GAS ARTERIAL Collected: 01/12/2018 Status: F Source: [facility] 6:30 PM HEALTH SYSTEM REPOSITORY TYPE CODE [...] Excess -4.0 Performed By: #### ABG #### [place] [address] IONIZED CALCIUM Collected: 01/12/2018 Status: F Source: [facility] 6:30 PM HEALTH SYSTEM REPOSITORY TYPE CODE TESTS RESULT OUT OF REFERENCE UNITS RANGE LAB CAION(LOINC 4.43-4.93 mg/dL ) Ionized 4.43 Calcium LAB PHCAI(LOINC 7.320-7.420 ) pH 7.362 LAB CAPH(LOINC) 4.36-4.73 mg/dL Low Ionized 4.35 Ca,PH7.4 Performed By: #### IONCA #### [place] [address] FIBRINOGEN Collected: 01/12/2018 Status: F Source: [facility] 6:30 HEALTH SYSTEM REPOSITORY TYPE CODE TESTS RESULT OUT OF REFERENCE UNITS RANGE LAB FIB(LOINC) 180-430 mg/dl Fibrinogen 241 Performed By: #### FIB #### [address] [address] HEMOGRAM Collected: 01/12/2018 Status: F Source: [facility] 6:30 PM HEALTH SYSTEM REPOSITORY TYPE CODE [...] MPV 10.1 Performed By: #### CBC1 #### [place] [address] LACTIC ACID Collected: 01/12/2018 Status: F Source: [facility] 6:30 PM HEALTH SYSTEM REPOSITORY TYPE CODE TESTS RESULT OUT OF REFERENCE UNITS RANGE LAB LAC(LOINC) 0.4-2.0 mEq/L High alert Lactic Acid 6.7 Performed By: #### LAC #### [place] [address] BASIC PANEL Collected: 01/12/2018 Status: F Source: [facility] 4:45 PM HEALTH SYSTEM REPOSITORY TYPE CODE [...] 14 Performed By: #### P8 #### [facility] [address] [place] [address] PHERESED PLATELETS Collected: 01/12/2018 Status: F Source: [facility] 4:31 PM HEALTH SYSTEM REPOSITORY TYPE CODE TESTS RESULT OUT OF REFERENCE UNITS RANGE LAB PPHR(LOINC) Pheresed Plts Done unit 1 Performed By: #### PPHRS #### [facility] [address] [place] [address] CONSULT PROG Observed: 01/12/2018 Status: COMPLETED Source: [place] 1:48 PM CLINIC OTHER CAMPUS REPOSITORY HNO ID: [id number] Author: Elder Yu) Kalee Service: Critical Care [...] PMH of AAA who was transferred to [facility] in shock 2/2 ruptured AAA c/b [...] ALLIED HEALTH Observed: 01/12/2018 Status: COMPLETED Source: [place] 12:[address] [facility] OTHER CAMPUS REPOSITORY [facility] ID: [id number] Author: Chaplain Serna (Chaplain) Service: Spiritual Care Author Type: Agency Owner Type: Allied Health Filed: 01/12/2018 1:51 PM Note Text: SPIRITUALCARE Spiritual Care Visit- Brief Note Name: Naveen Akins Date: January 12, 2018 Notes: Met pt's fam in 3d floor [place] and,at their request, prayed with them. Will add pt to prayer list as well. Previous game attendant asked me to check in with them. Let them know I'd be here all day and reminded them of 27/12 game attendant availability. Will continue to follow as needed. Agency Owner Signature: Chaplain Daphne To contact the Spiritual Care Department: Please call [phone] or Page the On-Call at pager [phone] Thank you for the opportunity to be of service. This is an electronically created document. IF PRINTED, PLEASE DO NOT REMOVE FROM THE CHART OR MODIFY PRINTED COPY. BLOOD GAS ARTERIAL Collected: 01/12/2018 Status: F Source: [facility] 11:40 AM HEALTH SYSTEM REPOSITORY TYPE CODE [...] Not Given Performed By: #### ABG #### [place] [address] BASIC PANEL Collected: 01/12/2018 Status: F Source: [facility] 11:40 HEALTH SYSTEM REPOSITORY TYPE CODE TESTS [...] Gap 12 Performed By: #### P8 #### [place] [address] HEMOGRAM Collected: 01/12/2018 Status: F Source: [facility] 11:40 AM HEALTH SYSTEM REPOSITORY TYPE CODE [...] MPV 9.7 Performed By: #### CBC1 #### [place] [address] PROTIME Collected: 01/12/2018 Status: F Source: [facility] 11:40 HEALTH SYSTEM REPOSITORY TYPE CODE TESTS RESULT OUT OF REFERENCE UNITS RANGE LAB PTI(LOINC) 9.3-11.9 sec Prothrombin High Time 13.3 LAB INR(LOINC) INR 1.29 Result Comment: Standard Therapy 2.0-3.0 High Dose 2.5-3.5 Performed By: #### PT #### [place] [address] ACTIVATED PTT Collected: 01/12/2018 Status: F Source: [facility] 11:40 HEALTH SYSTEM REPOSITORY TYPE CODE TESTS RESULT OUT OF REFERENCE UNITS RANGE LAB APTT(LOINC 22.0-34.0 sec ) Activated PTT 32.9 Performed By: #### APTT #### [place] [address] BRIEF OP NOT Observed: 01/12/2018 Status: COMPLETED Source: [place] 11:22 AM CLINIC OTHER CAMPUS REPOSITORY HNO ID: [id number] Author: Dionicio Stevens Service: Vascular Surgery Author Type: Resident Type: Brief Op Note Filed: 01/12/2018 11:29 AM Note Text: BRIEF OPERATIVE / PROCEDURE NOTE LOG ID: [id number] SURGERY/PROCEDURE DATE: 01/12/2018 INCISION/PROCEDURE START TIME: 8:34 AM INCISION CLOSE/PROCEDURE END TIME: 11:05 AM SURGEON(S)/PROCEDURALIST(S) AND CONSTRUCTION CONTROLLER(S): Surgeon(s) and Role: * Venkat Paniagua - Primary * Dionicio Stevens - Resident - Assisting * Araceli Reynaga - Assisting Physician Rn Training: Hailey Norris (Pa) SURGERY/PROCEDURE(S): Second Look Laparotomy, [...] ESTIMATED BLOOD LOSS: unmeasurable amount, estimated near [id number] SPECIMENS: None COMPLICATIONS: None PRE-OP/PRE-PROCEDURE DIAGNOSIS: Open Abdomen, s/o AAA Repair, Coagulopathy, Hemorrhagic Shock POST-OP/POST-PROCEDURE DIAGNOSIS: BLEEDING IN COAGULOPATHIC PATIENT, NO SPECIFIC BLEEDING SITE IDENTIFIED, DIFFUSE COAGULOPATHIC BLEEDING Same SIGNATURE: Dionicio Stevens MD PATIENT NAME: Naveen Akins DATE: January 12, 2018 TIME: 11:22 AM PAGER/CONTACT #: ANEConor PREOP Observed: 01/12/2018 Status: COMPLETED Source: [place] 10:[address] [facility] OTHER CAMPUS REPOSITORY O ID: [id number] Author: Moy Quinones Service: Anesthesiology Author Type: [...] L'SCOPE BENJI W/CHOLANGIOGRAPHY 05-28-09 - REPAIR UMBILICAL NAATN,5+Y/O,REDUC 05-28-09 FAMILY HISTORY Problem Relation Age of [...] January 12, 2018 TIME: 10:25 AM CSN: [id number] BLOOD GAS ARTERIAL Collected: 01/12/2018 Status: F Source: [address] SYSTEM REPOSITORY TYPE CODE TESTS RESULT [...] Saturation 99.5 Performed By: #### ABGCS #### [place] [address] HEMOGLOBIN CSL Collected: 01/12/2018 Status: F Source: [address] SYSTEM REPOSITORY TYPE CODE TESTS RESULT OUT OF REFERENCE UNITS RANGE LAB HGBCS(LOIN 14.0-18.0 g/dL C) Low Hemoglobin CSL 10.0 Performed By: #### HGBCS #### [place] [address] HEMATOCRIT CSL Collected: 01/12/2018 Status: F Source: [address] SYSTEM REPOSITORY TYPE CODE TESTS RESULT OUT OF REFERENCE UNITS RANGE LAB HCTCS(LOIN 42.0-52.0 % C) Low Hematocrit CSL 29.9 Performed By: #### HCTCS #### [place] [address] POTASSIUM CSL Collected: 01/12/2018 Status: F Source: [address] SYSTEM REPOSITORY TYPE CODE TESTS RESULT OUT OF REFERENCE UNITS RANGE LAB KCSL(LOINC 3.5-5.0 mEq/L ) Low Potassium CSL 2.9 Performed By: #### KCSL #### [place] [address] IONIZED CALCIUM CSL Collected: 01/12/2018 Status: F Source: [address] SYSTEM REPOSITORY TYPE CODE TESTS RESULT OUT OF RANGE REFERENCE UNITS LAB CALC(LOINC) 4.43-4.93 mg/dL CA++ CSL 4.69 LAB CA@PH(LOINC 4.36-4.73 mg/dL ) CA++ at 4.54 PH 7.4 LAB PHICA(LOINC 7.350-7.450 ) Low pH 7.335 Performed By: #### CACSL #### [place] [address] PLATELET Collected: 01/12/2018 Status: F Source: [address] SYSTEM REPOSITORY TYPE CODE TESTS RESULT OUT OF REFERENCE UNITS RANGE LAB PLTI(LOINC) 141-365 thou/cmm Low Platelet 59 Performed By: #### PLTI #### [place] [address] PROTIME Collected: 01/12/2018 Status: F Source: [address] SYSTEM REPOSITORY TYPE CODE TESTS RESULT OUT OF REFERENCE UNITS RANGE LAB PTI(LOINC) 9.3-11.9 sec Prothrombin High Time 14.5 LAB INR(LOINC) INR 1.45 Result Comment: Standard Therapy 2.0-3.0 High Dose 2.5-3.5 Performed By: #### PT #### [place] [address] ACTIVATED PTT Collected: 01/12/2018 Status: F Source: [address] SYSTEM REPOSITORY TYPE CODE TESTS RESULT OUT OF REFERENCE UNITS RANGE LAB APTT(LOINC 22.0-34.0 sec ) High Activated PTT 40.2 Performed By: #### APTT #### [place] [address] D-DIMER QUANTITATIVE Collected: 01/12/2018 Status: F Source: [address] SYSTEM REPOSITORY TYPE CODE TESTS RESULT OUT OF RANGE REFERENCE UNITS LAB DDMRQ(LOINC <500 ng/ml(FEU) ) High alert D-Dimer, 06508 Quant. Result Comment: The cutoff level recommended for the exclusion of deep vein thrombosis (DVT) or pulmonary embolism (PE) is 500 ng/mL(FEU). It is recommended that DVT or PE exclusion be restricted to suspected outpatients with a low to moderate pretest probability model. Performed By: #### DDMRN #### [place] [address] FIBRINOGEN Collected: 01/12/2018 Status: F Source: [facility] 10:05 AM HEALTH SYSTEM REPOSITORY TYPE CODE TESTS RESULT OUT OF REFERENCE UNITS RANGE LAB FIB(LOINC) 180-430 mg/dl Fibrinogen 220 Performed By: #### FIB #### [place] [address] SCHISTOCYTE SCAN Collected: 01/12/2018 Status: F Source: [facility] 10:05 AM HEALTH SYSTEM REPOSITORY TYPE CODE TESTS RESULT OUT OF REFERENCE UNITS RANGE LAB SCHIS(LOIN None C) Schistocyte Scan None Performed By: #### SCHIS #### [place] [address] FSP Collected: 01/12/2018 Status: F Source: [facility] 10:05 AM HEALTH SYSTEM REPOSITORY TYPE CODE TESTS RESULT OUT OF RANGE REFERENCE UNITS LAB FSP(LOINC) <10 ug/ml Abnormal FSP >20<30 Performed By: #### FSP #### [place] [address] PHERESED PLATELETS Collected: 01/12/2018 Status: F Source: [facility] 9:47 AM HEALTH SYSTEM REPOSITORY TYPE CODE TESTS RESULT OUT OF REFERENCE UNITS RANGE LAB PPHR(LOINC) Pheresed Plts Done unit 1 Performed By: #### PPHRS #### [place] [address] HISTORY PHYSICAL Observed: 01/12/2018 Status: COMPLETED Source: [place] 9:[address] [facility] OTHER [facility] REPOSITORY HNO ID: [id number] Author: John TylerRn) Bernard RN Service: Nursing Author Type: Registered Nurse Type: HANDP Filed: 01/12/2018 9:42 AM Note Text: Family updated at this time on case status NURSING PROG Observed: 01/12/2018 Status: COMPLETED Source: [place] 8:[address] [facility] OTHER [facility] REPOSITORY HNO ID: [id number] Author: Jose TylerRn) MAGALY Jasso Service: Nursing [...] 5 PACK Collected: 01/12/2018 Status: F Source: [place] 8:23 AM [facility] REPOSITORY TYPE CODE TESTS RESULT OUT OF REFERENCE UNITS RANGE LAB CRY1S(LOIN C) Cryoprecipitate 5-Pk x1 Done Performed By: #### CRY5S #### [place] [address] PROGRESS Observed: 01/12/2018 Status: COMPLETED Source: [place] 7:56 AM [facility] REPOSITORY HNO ID: [id number] Author: Dionicio Stevens Service: Vascular Surgery Author [...] OR now. Dionicio Stevens MD PGY-4 Pager: [phone] 01/12/2018, 8:02 AM HGB Collected: 01/12/2018 Status: F Source: [facility] 7:15 AM HEALTH SYSTEM REPOSITORY TYPE CODE TESTS RESULT OUT OF RANGE REFERENCE UNITS LAB HGBI(LOINC) 13.7-17.5 g/dL Low Hgb 12.2 Performed By: #### HGBI #### [place] [address] HCT Collected: 01/12/2018 Status: F Source: [facility] 7:15 AM HEALTH SYSTEM REPOSITORY TYPE CODE TESTS RESULT OUT OF RANGE REFERENCE UNITS LAB HCTI(LOINC) 40.1-51.0 % Low Hct 35.7 Performed By: #### HCTI #### [place] [address] BLOOD GAS ARTERIAL Collected: 01/12/2018 Status: F Source: [facility] 7:15 AM HEALTH SYSTEM REPOSITORY TYPE CODE [...] Given Performed By: #### ABG #### [facility] [address] [place] [address] PROTIME Collected: 01/12/2018 Status: F Source: [facility] 7:15 AM HEALTH SYSTEM REPOSITORY TYPE CODE TESTS RESULT OUT OF REFERENCE UNITS RANGE LAB PTI(LOINC) 9.3-11.9 sec Prothrombin High Time 13.9 LAB INR(LOINC) INR 1.40 Result Comment: Standard Therapy 2.0-3.0 High Dose 2.5-3.5 Performed By: #### PT #### [facility] [address] [place] [address] ACTIVATED PTT Collected: 01/12/2018 Status: F Source: [facility] 7:15 HEALTH SYSTEM REPOSITORY TYPE CODE TESTS RESULT OUT OF REFERENCE UNITS RANGE LAB APTT(LOINC 22.0-34.0 sec ) High Activated PTT 35.1 Performed By: #### APTT #### [facility] [address] [place] [address] CHEST 1 VIEW Observed: 01/12/2018 Status: F Source: [facility] 6:51 AM HEALTH SYSTEM REPOSITORY Performed at [facility] APPROVED BY: AIMEE FORREST MD TECHNIQUE: [...] change PROGRESS Observed: 01/12/2018 Status: COMPLETED Source: [place] 6:21 AM CLINIC OTHER CAMPUS REPOSITORY HNO ID: [id number] Author: Dionicio (Edenilson) Rodney Service: Vascular Surgery [...] questions or concerns Mon-Fri 6a-5p please page [phone]. After 5pm and on Weekends and Holidays, please page [phone] if in ICU or [phone] if on RNF. Subjective SUBJECTIVE: Emergent Aortic repair overnight Diet: DIET NPO Objective OBJECTIVE: Vitals: No data recorded. Pulse 102 SpO2 90% O2 Therapy: Ventilator IANDO: Date 01/11/18699 - 01/12/18658(Not Admitted) 01/12/18 07 - 08/10/18 0659 Shift 7822-3914 1756-8217 5664-4850 24 Hour Total 8927-0817 9097-9656 1028-4310 24 Hour Total I N T A [...] RNF. PROGRESS Observed: 01/12/2018 Status: COMPLETED Source: [place] 6:[address] [facility] OTHER CAMPUS REPOSITORY HNO ID: [id number] Author: Ekaterina Mckeon Service: Pulmonary Disease Author [...] 77 year old man emergently transferred to [facility] from [place] for a ruptured abdominal aortic aneurysm. He had a systolic blood pressure in the 60's at [place] which fell to the 50's en route with eventual arrest before arrival at [facility]. He was receiving CPR at the time [...] 43.3 38.7 37.0 57.1* 32.8* 44.3 33.1* R4MTVWRS 95.8 96.9 99.1* 99.8* 99.8* 99.7* 99.4* [...] services: 40 minutes. SIGNATURE: Ekaterina Mckeon MD [facility] PAGER:[phone] DATE of SERVICE: January 12, 2018 TIME of SERVICE: 6:15 AM BRIEF OP NOT Observed: 01/12/2018 Status: COMPLETED Source: [place] 6:04 AM [facility] REPOSITORY O ID: [id number] Author: Venkat Paniagua Service: Vascular Surgery Author Type: Physician Type: Brief Op Note Filed: 01/15/2018 12:23 PM Note Text: BRIEF OPERATIVE / PROCEDURE NOTE LOG ID: [id number] Patient Name:Naveen Akins CSN: [id number] Surgery/Procedure Date: 01/12/2018 Incision/Procedure Start Time: 12:50 AM Incision Close/Procedure End Time: 5:06 AM Surgeon(s)/Proceduralist(s) and Rn Training(s): Surgeon(s) and Role: * Venkat Paniagua - Primary * Emilie Peralta - Resident - Assisting Supervisor [employer] Finishing: Hailey Dixon SA Procedure(s): Procedure(s) (LRB): REPAIR [...] 12, 2018 TIME: 6:04 AM PAGER/CONTACT #: [phone] EKG Observed: 01/12/2018 Status: F Source: [place] 5:34 AM [facility] REPOSITORY NAME : NAVEEN AKINS PID : [id number] : 1940 Gender : Male Race : ORD : Procedure Date : Jan 12 2018 05:34 Edit Date : Jan 12 2018 07:57 Diagnosis:NORMAL SINUS RHYTHM RSR' OR QR PATTERN IN V1 SUGGESTS RIGHT VENTRICULAR CONDUCTION DELAY NONSPECIFIC T WAVE ABNORMALITY PROLONGED QT ABNORMAL ECG NO PREVIOUS ECGS AVAILABLE Confirmed by MD Edny, Frederick ([id number]) on 01/12/2018 7:57:48 AM Ventricular Rate : 100 BPM Atrial Rate : 100 BPM P-R Interval : 132 ms QRS Duration : 80 ms Q-T Interval : 430 ms QTC Calculation(Bezet) : 554 ms P [place] : 14 degrees R [place] : -26 degrees T [place] : 85 degrees Test Reason : Location : 3 : [place] [address] Overread By : MD Schumacher Anubhav Editted By : MD Schumacher Anubhav Referred By : , Acquired by : Betsey Scott PREOP Observed: 01/12/2018 Status: COMPLETED Source: [place] 5:26 AM CLINIC OTHER CAMPUS REPOSITORY O ID: [id number] Author: Jack Lam Service: Anesthesiology Author Type: [...] January 12, 2018 TIME: 5:26 AM CSN: [id number] BLOOD GAS ARTERIAL Collected: 01/12/2018 Status: F Source: [facility] 5:09 AM HEALTH SYSTEM REPOSITORY TYPE CODE [...] Saturation 95.8 Performed By: #### ABGCS #### [address] [address] HEMOGLOBIN CSL Collected: 01/12/2018 Status: F Source: [facility] 5:09 AM [facility] REPOSITORY TYPE CODE TESTS RESULT OUT OF REFERENCE UNITS RANGE LAB HGBCS(LOIN 14.0-18.0 g/dL C) Low Hemoglobin CSL 10.1 Result Comment: RESULT RECHECKED CORRECTED: Previous result = 10.5, verified at 04:24 on 01/12/18. Performed By: #### HGBCS #### [address] [address] HEMATOCRIT CSL Collected: 01/12/2018 Status: F Source: [facility] 5:09 HEALTH SYSTEM REPOSITORY TYPE CODE TESTS RESULT OUT OF REFERENCE UNITS RANGE LAB HCTCS(LOIN 42.0-52.0 % C) Low Hematocrit CSL 30.3 Performed By: #### HCTCS #### [address] [address] SODIUM CSL Collected: 01/12/2018 Status: F Source: [facility] 5:09 AM HEALTH SYSTEM REPOSITORY TYPE CODE TESTS RESULT OUT OF REFERENCE UNITS RANGE LAB NACSL(LOINC 136-145 mEq/L ) High Sodium CSL 152 Performed By: #### NACSL #### [place] [address] POTASSIUM CSL Collected: 01/12/2018 Status: F Source: [facility] 5:09 AM HEALTH SYSTEM REPOSITORY TYPE CODE TESTS RESULT OUT OF REFERENCE UNITS RANGE LAB KCSL(LOINC 3.5-5.0 mEq/L ) Potassium CSL 3.9 Performed By: #### KCSL #### [place] [address] GLUCOSE CSL Collected: 01/12/2018 Status: F Source: [facility] 5:09 AM HEALTH SYSTEM REPOSITORY TYPE CODE TESTS RESULT OUT OF REFERENCE UNITS RANGE LAB GLUCS(LOINC 70-99 mg/dL ) High Glucose CSL 193 Performed By: #### GLUCS #### [place] [address] FROZEN PLASMA Collected: 01/12/2018 Status: F Source: [facility] (THAWED PLASMA) 5:07 AM HEALTH SYSTEM REPOSITORY TYPE CODE TESTS RESULT OUT OF RANGE REFERENCE UNITS LAB FFP1(LOINC) FFP unit Done 1 LAB FFP2(LOINC) FFP unit Done 2 LAB FFP3(LOINC) FFP unit Done 3 LAB FFP4(LOINC) FFP unit Done 4 LAB FFP5(LOINC) FFP unit Done 5 Performed By: #### FFPXS #### [place] [address] FIBRINOGEN Collected: 01/12/2018 Status: F Source: [facility] 5:02 AM HEALTH SYSTEM REPOSITORY TYPE CODE TESTS RESULT OUT OF REFERENCE UNITS RANGE LAB FIB(LOINC) 180-430 mg/dl Fibrinogen 234 Performed By: #### FIB #### [place] [address] PLATELET Collected: 01/12/2018 Status: F Source: [facility] 5:02 AM HEALTH SYSTEM REPOSITORY TYPE CODE TESTS RESULT OUT OF REFERENCE UNITS RANGE LAB PLTI(LOINC) 141-365 thou/cmm Low Platelet 82 Result Comment: Smear scanned tech agrees with platelet count Performed By: #### PLTI #### [place] [address] NURSING PROG Observed: 01/12/2018 Status: COMPLETED Source: [place] 4:58 AM [facility] REPOSITORY HNO ID: [id number] Author: Tim TylerRn) MAGALY Bruner Service: Nursing Author Type: Registered Nurse Type: Nursing Progress Note Filed: 01/12/2018 5:02 AM Note Text: At approximately 0040 [place] emergently entered into OR 10, CPR was being done during this time. CPR continued being performed as the case was starting, in total chest compressions were performed for approximately 15 minutes. PROGRESS Observed: 01/12/2018 Status: COMPLETED Source: [place] 4:43 AM [facility] REPOSITORY HNO ID: [id number] Author: Tim TylerRn) MAGALY Bruner Service: Nursing Author Type: Registered Nurse Type: Progress Notes Filed: 01/12/2018 4:44 AM Note Text: Patient abdomen retaining 4 lap sponges as surgical packing. X-ray to be take at later time. NURSING PROG Observed: 01/12/2018 Status: COMPLETED Source: [place] 4:41 AM [facility] REPOSITORY HNO ID: [id number] Author: Tim TylerRn) MAGALY Bruner Service: Nursing Author Type: Registered Nurse Type: Nursing Progress Note Filed: 01/12/2018 4:43 AM Note Text: Due to the emergent nature of the case an initial surgical count was not done. NURSING PROG Observed: 01/12/2018 Status: COMPLETED Source: [place] 4:34 AM [facility] REPOSITORY HNO ID: [id number] Author: Tim Garcia) MAGALY Bruner Service: Nursing Author Type: Registered Nurse Type: Nursing Progress Note Filed: 01/12/2018 4:41 AM Note Text: Per Dr. Paniagua no chest x-ray is going to be taken due to patient retaining lap sponges as surgical packing. SCHISTOCYTE SCAN Collected: 01/12/2018 Status: F Source: [facility] 4:13 AM HEALTH SYSTEM REPOSITORY TYPE CODE TESTS RESULT OUT OF REFERENCE UNITS RANGE LAB SCHIS(LOIN None C) Schistocyte Scan None Performed By: #### SCHIS #### [facility] [address] [place] [address] PROTIME/APTT Collected: 01/12/2018 Status: F Source: [facility] 4:13 AM HEALTH SYSTEM REPOSITORY TYPE CODE TESTS RESULT OUT OF REFERENCE UNITS RANGE LAB PTI(LOINC) 9.3-11.9 sec Prothrombin High Time 15.5 LAB INR(LOINC) INR 1.56 Result Comment: Standard Therapy 2.0-3.0 High Dose 2.5-3.5 LAB APTT(LOINC) 22.0-34.0 sec High alert Activated PTT 82.2 Performed By: #### PTPTT #### [place] [address] D-DIMER QUANTITATIVE Collected: 01/12/2018 Status: F Source: [facility] 4:13 AM HEALTH SYSTEM REPOSITORY TYPE CODE TESTS RESULT OUT OF RANGE REFERENCE UNITS LAB DDMRQ(LOINC <500 ng/ml(FEU) ) High alert D-Dimer, >89159 Quant. Result Comment: The cutoff level recommended for the exclusion of deep vein thrombosis (DVT) or pulmonary embolism (PE) is 500 ng/mL(FEU). It is recommended that DVT or PE exclusion be restricted to suspected outpatients with a low to moderate pretest probability model. Performed By: #### DDMRN #### [place] [address] RAPID HIV AB. Collected: 01/12/2018 Status: F Source: [facility] 3:35 AM HEALTH SYSTEM REPOSITORY TYPE CODE [...] HIV-1 infection. Performed By: #### RHIV #### [place] [address] HEP. B SURFACE AG Collected: 01/12/2018 Status: F Source: [facility] 3:35 AM HEALTH SYSTEM REPOSITORY TYPE CODE TESTS RESULT OUT OF REFERENCE UNITS RANGE LAB HBSA(LOINC Negative ) Hep.B Surface Negative Ag Performed By: #### HBSAG #### [place] [address] HIV SCREEN Collected: 01/12/2018 Status: F Source: [facility] 3:35 AM HEALTH SYSTEM REPOSITORY TYPE CODE TESTS RESULT OUT OF REFERENCE UNITS RANGE LAB 3HIV(LOINC Nonreactive ) HIV Negative Screen Performed By: #### 3HIV #### [facility] [address] [place] [address] HEPATITIS C ANTIBODY Collected: 01/12/2018 Status: F Source: [facility] 3:35 AM HEALTH SYSTEM REPOSITORY TYPE CODE TESTS RESULT OUT OF REFERENCE UNITS RANGE LAB HCV(LOINC) Negative Hepatitis C Ab Negative Performed By: #### HCVAB #### [facility] [address] [place] [address] HEP. B CORE AB IGM Collected: 01/12/2018 Status: F Source: [facility] 3:35 AM HEALTH SYSTEM REPOSITORY TYPE CODE TESTS RESULT OUT OF REFERENCE UNITS RANGE LAB HBCO(LOINC) Negative HB Core Negative Ab IgM Performed By: #### HBCOR #### [place] [address] EMERGENCY DEPARTMENT Observed: 01/12/2018 Status: F Source: [facility] SUMMARY 2:55 AM [facility] [place] [facility] Medical Records Department [address] [place] [address] Emergency Department Summary 01/11/18 2313 MR#: [id number] Acct: [id number] Name: NAVEEN AKINS Rep #: [id number] : 1940 77 From: Kathy Dill PCP: [...] I did speak with the family requested [facility]. I spoke with [facility] vascular surgeon Dr. Paniagua who accepted the [...] was transfused 4 units. We did contact [email or web address] who said that they were not flying at that time [facility] was contacted and agreed to transport via flight. Patient's blood pressure remained in the 50's-70s during this time.] Treatment Plan: [] Disposition: [Transfer] Impression: [Ruptured aortic aneurysm] This note was generated with [employer] dictation software. It may contain incorrect words, spelling, and punctuation that were not noted in review of the chart prior to signing ED Disposition - Plan for ED Patient: Disposition: [facility] Chief Complaint: Syncope Referrals: Jack Olmedo MD [Primary Care Provider] - What to do if you have Problems For any increased pain, shortness of breath, bleeding, nausea or vomiting, chest pain, or any unexpected problems, contact your Primary Care Provider. Call [facility] ([phone]) or report to the closest Emergency Room. Call 911 if necessary. 01/12/18 0255 <Electronically signed by Kathy Dill > Date Kathy Ta Martinezigner Signature (If Indicated): Date CC: Jack Olmedo MD IONIZED CALCIUM CSL Collected: 01/12/2018 Status: F Source: [facility] 2:11 AM HEALTH SYSTEM REPOSITORY TYPE CODE [...] on 01/12/18. Performed By: #### CACSL #### [place] [address] BLOOD GAS ARTERIAL Collected: 01/12/2018 Status: F Source: [facility] 1:50 AM HEALTH SYSTEM REPOSITORY TYPE CODE [...] Not Given Performed By: #### ABG #### [place] [id number] BLD GAS ART AND Collected: 01/12/2018 Status: F Source: [facility] [place] 1:43 AM HEALTH SYSTEM REPOSITORY [...] Not Given Performed By: #### ABGIG #### [place] [address] HGB Collected: 01/12/2018 Status: F Source: [facility] 1:40 AM HEALTH SYSTEM REPOSITORY TYPE CODE TESTS RESULT OUT OF RANGE REFERENCE UNITS LAB HGBI(LOINC) 13.7-17.5 g/dL Low alert Hgb 5.2 Performed By: #### HGBI #### [place] [address] HCT Collected: 01/12/2018 Status: F Source: [facility] 1:40 AM HEALTH SYSTEM REPOSITORY TYPE CODE TESTS RESULT OUT OF RANGE REFERENCE UNITS LAB HCTI(LOINC) 40.1-51.0 % Low alert Hct 16.8 Performed By: #### HCTI #### [place] [address] PHERESED PLATELETS Collected: 01/12/2018 Status: F Source: [facility] 1:40 AM HEALTH SYSTEM REPOSITORY TYPE CODE TESTS RESULT OUT OF REFERENCE UNITS RANGE LAB PPHR(LOINC) Pheresed Plts Done unit 1 Performed By: #### PPHRS #### [address] [address] HISTORY PHYSICAL Observed: 01/12/2018 Status: COMPLETED Source: [place] 1:[address] [facility] OTHER CAMPUS REPOSITORY O ID: [id number] Author: Manuela Gutierrez Service: Vascular Surgery Author Type: Resident Type: HANDP Filed: 01/12/2018 6:46 AM Note Text: Attestation signed by Venkat Paniagua at 01/12/2018 4:56 PM I saw and evaluated the patient. Discussed with the resident and agree with resident's findings and plan as documented in the resident's note. HISTORY AND PHYSICAL EXAMINATION SERVICE DATE: 01/12/2018 SERVICE TIME: 1:21 AM PRIMARY CARE PHYSICIAN: Ji Hurst MD Subjective CHIEF COMPLAINT: Ruptured AAA HPI: This is a 77 year old male transferred in critical condition from [facility] with diagnosed ruptured AAA. Patient was life-flighted to [facility]. Intubated at outside facility. Per EMS, [...] #: HOSP Observed: 01/12/2018 Status: COMPLETED Source: [facility] 12:00 AM CLINIC OTHER CAMPUS REPOSITORY Patient:Naveen Akins MRN: <[id number]> Height:5' 8(1.727 m) Weight:181 lb 3.5 oz [...] pancreatitis [K85.10] Ruptured abdominal aortic aneurysm (AAA) ([facility]) [I71.3] DIC (disseminated intravascular coagulation) ([facility]) [D65] Hemorrhagic shock ([facility]) [R57.8] Acute respiratory failure ([facility]) [J96.00] Cardiac arrest ([facility]) [I46.9] Hypernatremia [E87.0] Hypokalemia [E87.6] Hypomagnesemia [E83.42] Hypophosphatemia [E83.39] Hyperchloremia [E87.8] Encephalopathy [G93.40] AAA (abdominal aortic aneurysm, ruptured) ([facility]) [I71.3] Obesity, Class I, BMI 30-34.9 [E66.9] Allergies: No Known Allergies Date Verified:01/27/18 Lab Values Lab Value Units Date High Low POTA* 3.9 mEq/L 01/27/2018 5.1 3.5 MACIEL* 29.4 % 01/27/2018 51.0 40.1 Progress Notes (): Venkat Paniagua MD 01/15/2018 12:16 PM Signed [facility] - Operative Report SURGEON: Venkat Paniagua MD PATIENT NAME: NAVEEN AKINS [facility]: [id number] DATE OF SURGERY: 01/12/2018 DATE OF : 1940 SEX/AGE: M/77 PATIENT TYPE: I HOSP SVC: LICO LOCATION: [id number] DATE OF SURGERY: 01/12/2018 SURGEON: Venkat Paniagua MD PREOPERATIVE DIAGNOSES: Ruptured abdominal aortic aneurysm, preoperative cardiac arrest. POSTOPERATIVE DIAGNOSES: Ruptured abdominal aortic aneurysm, preoperative cardiac arrest. PROCEDURE: Cardiopulmonary resuscitation, repair of ruptured abdominal aortic aneurysm using an 18 mm x 9 mm Hemashield graft, application of ABThera device. CONSTRUCTION CONTROLLER: Dr. Peralta; Meaghan Dixon SA. ANESTHESIA: General. HISTORY: This patient, we were notified of about 45 minutes ago when he was at [facility], found to be hypotensive and [...] future. Venkat Paniagua MD Vascular Surgery DJW:modl /[id number] Venkat Paniagua MD 01/15/2018 12:18 PM Signed [facility] - Operative Report SURGEON: Venkat Paniagua MD PATIENT NAME: NAVEEN AKINS CSN: [id number] DATE OF SURGERY: 01/12/2018 DATE OF : 1940 SEX/AGE: M/77 PATIENT TYPE: I HOSP SVC: LICO LOCATION: [facility] 01/12/2018 SURGEON: Venkat Paniagua MD PREOPERATIVE DIAGNOSES: [...] monitoring. Venkat Paniagua MD Vascular Surgery DENA:mika /[id number] Manuela Gutierrez MD 01/12/2018 6:46 AM Attested Attestation signed by Venkat Paniagua at 01/12/2018 4:56 PM I saw and evaluated the patient. Discussed with the resident and agree with resident's findings and plan as documented in the resident's note. HISTORY AND PHYSICAL EXAMINATION SERVICE DATE: 01/12/2018 SERVICE TIME: 1:21 AM PRIMARY CARE PHYSICIAN: Ji Hurst MD Subjective CHIEF COMPLAINT: Ruptured AAA HPI: This is a 77 year old male transferred in critical condition from [facility] with diagnosed ruptured AAA. Patient was life-flighted to [facility]. Intubated at outside facility. Per EMS, [...] 01/12/2018 5:02 AM Signed At approximately 0040 [place] emergently entered into OR 10, CPR was [...] January 12, 2018 TIME: 5:26 AM CSN: [id number] Venkat Paniagua MD 01/15/2018 12:23 PM Signed BRIEF OPERATIVE / PROCEDURE NOTE LOG ID: [id number] Patient Name:Naveen Akins CSN: [id number] Surgery/Procedure Date: 01/12/2018 Incision/Procedure Start Time: 12:50 AM Incision Close/Procedure End Time: 5:06 AM Surgeon(s)/Proceduralist(s) and Rn Training(s): Surgeon(s) and Role: * Venkat Paniagua - Primary * Emilie Peralta - Resident - Assisting Supervisor Concrete Stone Finishing: Hailey Dixon SA Procedure(s): Procedure(s) (LRB): REPAIR [...] 12, 2018 TIME: 6:04 AM PAGER/CONTACT #: [phone] Previous Version Ekaterina Mckeon MD 01/12/2018 6:40 AM Signed CRITICAL CARE PROGRESS NOTE SERVICE DATE: January 12, 2018 SERVICE TIME: 6:15 AM Admission Date: 01/12/2018 AGE: [age] year old LOS: 0 days REASON FOR ICU ADMISSION: Ruptured AAA Acute blood loss anemia Cardiac arrest Anticipated acute hypoxic post-operative respiratory insufficiency Subjective Patient is a 77 year old man emergently transferred to [facility] from [place] for a ruptured abdominal aortic aneurysm. He had a systolic blood pressure in the 60's at [place] which fell to the 50's en route with eventual arrest before arrival at [facility]. He was receiving CPR at the time [...] 43.3 38.7 37.0 57.1* 32.8* 44.3 33.1* I9GLYXNE 95.8 96.9 99.1* 99.8* 99.8* 99.7* 99.4* [...] services: 40 minutes. SIGNATURE: Ekaterina Mckeon MD [facility] PAGER:[phone] DATE of SERVICE: January 12, 2018 TIME [...] questions or concerns Mon-Fri 6a-5p please page [phone]. After 5pm and on Weekends and Holidays, please page [phone] if in ICU or [phone] if on RNF. Subjective SUBJECTIVE: Emergent Aortic repair overnight Diet: DIET NPO Objective OBJECTIVE: Vitals: No data recorded. Pulse 102 SpO2 90% O2 Therapy: Ventilator IANDO: Date 01/11/18699 - 01/12/18658(Not Admitted) 01/12/18699 - 01/13/18 0659 Shift 6102-5279 2087-3804 6517-0578 24 Hour Total 6355-7234 9997-8142 3345-2204 24 Hour Total I N T A [...] discussed with attending: Dr. Paniagua SIGNATURE: Dionicio Steevns MD PATIENT NAME: Naveen Akins DATE: January 12, 2018 TIME: 6:22 AM Vascular AND Thoracic Surgery Service Pager: For questions or concerns Mon-Fri 6a-5p please page [phone]. After 5pm and on Weekends and Holidays, [...] OR now. Dionicio Stevens MD PGY-4 Pager: [phone] 01/12/2018, 8:02 AM Jose Jasso RN, RN [...] mg injection (GLUCAGEN) 1 mg INTRAMUSCULAR PRN Jakc Regula Or [MAR Hold due to Transfer] [...] January 12, 2018 TIME: 10:25 AM CSN: [id number] Dionicio Stevens MD 01/12/2018 11:29 AM Signed BRIEF OPERATIVE / PROCEDURE NOTE LOG ID: [id number] SURGERY/PROCEDURE DATE: 01/12/2018 INCISION/PROCEDURE START TIME: 8:34 AM INCISION CLOSE/PROCEDURE END TIME: 11:05 AM SURGEON(S)/PROCEDURALIST(S) AND CONSTRUCTION CONTROLLER(S): Surgeon(s) and Role: * Venkat Paniagua - Primary * Dionicio Stevens - Resident - Assisting * Araceli Reynaga - Assisting Physician Rn Training: Hailey Norris (Pa) SURGERY/PROCEDURE(S): Second Look Laparotomy, [...] ESTIMATED BLOOD LOSS: unmeasurable amount, estimated near 4164-8574 SPECIMENS: None COMPLICATIONS: None PRE-OP/PRE-PROCEDURE DIAGNOSIS: Open [...] pt to prayer list as well. Previous game attendant asked me to check in with them. Let them know I'd be here all day and reminded them of 27/12 game attendant availability. Will continue to follow as needed. Agency Owner Signature: Chaplain Daphne To contact the Spiritual Care Department: Please call [phone] or Page the On-Call Agency Owner at pager [phone] Thank you for the opportunity to be of service. This is an electronically created document. IF PRINTED, PLEASE DO NOT REMOVE FROM THE CHART OR MODIFY PRINTED COPY. Edler Granda MD 01/12/2018 2:16 PM Addendum ICU [...] PMH of AAA who was transferred to [facility] in shock 2/2 ruptured AAA c/b [...] questions or concerns Mon-Fri 6a-5p please page [phone]. After 5pm and on Weekends and Holidays, please page [phone] if in ICU or [phone] if on RNF. Subjective SUBJECTIVE: Febrile overnight [...] 0659 01/13/18 0700 - 01/14/18 0659 Shift 5730-1145 6573-6971 4498-4897 24 Hour Total 3020-3990 5946-0478 1063-1264 24 Hour Total I N T A K E IV 1600 5100 6700 IVPB 1600 50 1650 Potassium IVPB 300 300 LR 3000 3000 NORepinephrine Volume 200 200 ALBUMIN (mL) 1500 1500 MAGNESIUM SULFATE 50 50 Blood Products 1231 758 7226 PRBC Intake (mL) 900 900 Platelet mL [...] Noted - Ruptured abdominal aortic aneurysm (AAA) ([facility]) 01/12/2018 - DIC (disseminated intravascular coagulation) ([facility]) 01/12/2018 - Hemorrhagic shock ([facility]) 01/12/2018 - Acute respiratory failure ([facility]) 01/12/2018 - Cardiac arrest ([facility]) 01/12/2018 - Hypernatremia 01/12/2018 - Hypokalemia 01/12/2018 [...] Recent Labs 01/13/18 1015 01/13/18 0455 01/12/18 4075 PH 7.378 7.365 7.382 PO2 77.2* 84.6* 176.7* PCO2 37.7 40.7 39.3 Assessment/Plan IMPRESSION: Critical Care Documentation: The patient has the following organ/system impairment(s): Acute blood loss, Circulatory shock, Coagulopathy and Respiratory failure (Acute, with Hypoxemia) 77 year old male with PMH of AAA who was transferred to [facility] in shock 2/2 ruptured AAA c/b [...] Rosanna Talbert MD 01/13/2018 11:38 AM Signed [facility] [place] [address] [place] [address] Consult Note Patient's Name: Naveen Akins 11:16 AM 01/13/2018 Reason for Consult: TERENCE ATTENDING/ADMITTING PHYSICIAN:Venkat Paniagua History of Present Ilness: Naveen Akins is a 77 year old male with past history of CAD (remote PCI/stent placement) and HTN who is admitted with ruptured AAA yesterday. Pt was life flight from [facility] where ruptured AAA was diagnosed. Pt did [...] is anuric with increased pressor requirement. D/w fine arts model, I agree that the pt will benefit [...] do not hesitate to contact me at [phone] with any concerns. Rosanna Talbert MD, (Shen Lorenzo) Rosanna Talbert MD 01/13/2018 12:27 PM Addendum BEDSIDE PROCEDURE NOTE DIALYSIS CATHETER Date/Start Time: 01/13/2018 11:39 AM Performed by: SHEN LORENZO Authorized by: SHEN LORENZO Consent/[place] Protocol Written Consent Obtained: Yes Sign In [...] to clinical factors necessitating an emergent procedure [facility] Insertion Checklist Utilized: yes Medications: [...] TIME: 12:08 PM PAGER/CONTACT #: [phone] [id number] Lorrie Bo, RN, RN 01/13/2018 5:00 PM Signed CARE MANAGEMENT: ASSESSMENT AND DISCHARGE PLAN SERVICE DATE: 01/13/2018 SERVICE TIME: 4:46 PM PRIMARY CARE PHYSICIAN: Ji Hurst MD ADMISSION STATUS: Inpatient MEDICAL: Patient/Straight Knife Cutter Machine Stated Goals: pt intubated, family hopeful for [...] therapy Has the Patient Been in a Nursing Home Facility in the Past 30 days? 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 Primary Contact: Extended Emergency Contact Information Primary Emergency Contact: Shelly Mckeon Address: [address] [place] [address] [place] [address] Relation: Spouse Supportive: Yes Other Important Patient [...] 0 I feel financially burdened by my saw-mj-strrvb expenses for my prescription medication: Disagree mostly [...] 13, 2018 TIME: 4:45 PM PAGER/CONTACT #: [phone] Mark Woods MD 01/14/2018 8:54 AM Signed [...] Noted - Ruptured abdominal aortic aneurysm (AAA) ([facility]) 01/12/2018 - Encephalopathy 01/13/2018 - DIC (disseminated intravascular coagulation) ([facility]) 01/12/2018 - Hemorrhagic shock ([facility]) 01/12/2018 - Acute respiratory failure ([facility]) 01/12/2018 - Cardiac arrest ([facility]) 01/12/2018 - Hypernatremia 01/12/2018 - Hypokalemia 01/12/2018 - Hypomagnesemia 01/12/2018 - Hypophosphatemia 01/12/2018 - Hyperchloremia 01/12/2018 - AAA (abdominal aortic aneurysm, ruptured) ([facility]) 01/12/2018 Overview Note: Added automatically from request for surgery [id number] Assessment and Plan: Seen in OR today. No sign of ischemic colon Mark Woods MD, FACS Section of Trauma, Surgery Critical Care, and Acute Care Surgery Pager: [phone] Office: [phone] January 14, 2018 ==== SERVICE DATE: 01/13/2018 SERVICE TIME: 8:02 PM REASON FOR CONSULT: Intra-op eval of bowel REQUESTING PHYSICIAN: Dr. Paniagua PRIMARY CARE PHYSICIAN: Ji Hurst MD Subjective HISTORY OF PRESENT ILLNESS: Mr. Akins is a 77 year old male admitted with Ruptured AAA s/p Emergent Open Repair and take back, washout, repair of serosal tears. Patient is currently in CVICU intubated on Levophed and CVVHD. Abthera in place. PAST MEDICAL HISTORY Diagnosis Date - DIC (disseminated intravascular coagulation) ([facility]) 01/12/2018 PAST SURGICAL HISTORY Procedure Laterality Date [...] Gilbert Tucker MD 01/15/2018 11:32 AM Signed [facility] - Consultation PATIENT NAME: NAVEEN AKINS CSN: [id number] DATE OF : 1940 SEX/AGE: M/77 PATIENT TYPE: I HOSP SV: ROYAL LOCATION: [id number] DATE OF SERVICE: 01/14/[address] Venkat Paniagua. INDICATION: SVT. HISTORY OF PRESENT ILLNESS: This is very ill 77-year-old gentleman transferred from [facility] couple days ago. He had an AAA [...] with you. Gilbert Tucker MD Cardiology DAC:modl /[id number] Previous Version Dionicio Stevens MD 01/14/2018 8:48 [...] 01/13/18699 - 01/14/1865801/14/18699 - 01/15/18 0659 Shift 3774-8940 8000-4064 1116-8606 24 Hour Total 9235-7634 2431-8612 7435-8280 24 Hour Total I N T A [...] 01/12/18 0749 Abdomen) 2500 700 3200 Tubes 613 071 5793 1950 Drain/Tube Output (Drain/Tube 01/12/18 0100 Hemovac [...] Noted - Ruptured abdominal aortic aneurysm (AAA) ([facility]) 01/12/2018 - Encephalopathy 01/13/2018 - DIC (disseminated intravascular coagulation) ([facility]) 01/12/2018 - Hemorrhagic shock ([facility]) 01/12/2018 - Acute respiratory failure ([facility]) 01/12/2018 - Cardiac arrest ([facility]) 01/12/2018 - Hypernatremia 01/12/2018 - Hypokalemia 01/12/2018 - Hypomagnesemia 01/12/2018 - Hypophosphatemia 01/12/2018 - Hyperchloremia 01/12/2018 - AAA (abdominal aortic aneurysm, ruptured) ([facility]) 01/12/2018 Overview Note: Added automatically from request for surgery [id number] 77 year old male with Ruptured AAA [...] PMH of AAA who was transferred to [facility] in shock 2/2 ruptured AAA c/b [...] iv bolus 1,000 mL INTRAVENOUS PRN DIALYSIS Hsen Lorenzo prismaSOL BGK 4 K / 2.5 [...] January 14, 2018 TIME: 8:12 AM CSN: [id number] Renate Handy DO 01/14/2018 10:14 AM Signed [...] do not hesitate to contact me at [phone] with any concerns SIGNATURE: Renate Handy DO PATIENT NAME: Naveen Akins DATE: January 14, 2018 TIME: 10:08 AM PAGER/CONTACT #: Kannan Felder MD 01/14/2018 12:04 PM Attested Attestation signed by Mark Woods at 01/14/2018 2:33 PM Seen in OR Mark Woods MD PROGRESS NOTE EGS Surgery Progress Note Emergency General Surgery Service Pager: For questions or concerns Mon-Tue 6a-5p please page [phone]. After 5pm and on Weekends and Holidays, please page [phone] if in ICU or [phone] if on RNF. SERVICE DATE: 01/14/2018 SERVICE [...] 0659 01/14/18 0700 - 01/15/18 0659 Shift 4151-2729 0951-2378 0761-9438 24 Hour Total 6427-9581 3722-6024 1551-9131 24 Hour Total I N T A [...] Abdomen) 2500 700 3200 500 500 Tubes 548 602 6889 1950 1350 1350 Drain/Tube Output (Drain/Tube 01/12/18 [...] Noted - Ruptured abdominal aortic aneurysm (AAA) ([facility]) 01/12/2018 - Encephalopathy 01/13/2018 - DIC (disseminated intravascular coagulation) ([facility]) 01/12/2018 - Hemorrhagic shock ([facility]) 01/12/2018 - Acute respiratory failure ([facility]) 01/12/2018 - Cardiac arrest ([facility]) 01/12/2018 - Hypernatremia 01/12/2018 - Hypokalemia 01/12/2018 - Hypomagnesemia 01/12/2018 - Hypophosphatemia 01/12/2018 - Hyperchloremia 01/12/2018 - AAA (abdominal aortic aneurysm, ruptured) ([facility]) 01/12/2018 Overview Note: Added automatically from request for surgery [id number] Assessment/Plan with Ruptured AAA s/p Emergent Repair, [...] January 14, 2018 TIME: 12:02 PM PAGER: [phone] Roxane Silva, RN, RN 01/14/2018 12:40 PM Signed CRRT restarted without problem. Report given to HEARING AID DISPENSER. PT stable Paulo Lovelace APRN.MODEL BUILDER 01/14/2018 3:29 PM Signed MICU - PROGRESS [...] male with H/O AAA was transferred from [place] in shock 2/2 ruptured AAA s/p cardiac [...] 40 minutes excluding procedures. SIGNATURE: Paulo Lovelace APRN.MODEL BUILDER PATIENT NAME: Naveen Akins DATE: January 14, 2018 TIME: 2:18 PM Gilbert Tucker MD 01/14/2018 3:49 PM Signed Card Consult Dictated Job [id number] 1.SVT in pt with AAA rupture, s/p arrest on TREASURY ASSOCIATE, pressors; Echo EF 55%-SVT related to meds, [place] -On IV Amio -now sinus tach will follow Thanks Gilbert Tucker MD Pager [phone] Jose Jasso, RN, RN 01/14/2018 4:21 PM [...] Venkat Paniagua MD 01/22/2018 7:14 PM Signed [facility] - Operative Report SURGEON: Venkat Paniagua MD PATIENT NAME: NAVEEN AKINS CSN: [id number] DATE OF SURGERY: 01/14/2018 DATE OF : 1940 SEX/AGE: M/77 PATIENT TYPE: I HOSP SVC: LICO LOCATION: [id number] DATE OF SURGERY: 01/14/2018 SURGEON: Venkat Paniagua MD The patient is an inpatient. PREOPERATIVE DIAGNOSIS: Status post ruptured abdominal aortic aneurysm with ABThera device in place. POSTOPERATIVE DIAGNOSIS: Status post ruptured abdominal aortic aneurysm with ABThera device in place. PROCEDURE: Removal of packing from retroperitoneum, intraabdominal irrigation, examination of the retroperitoneum and bowel, and replacement of ABThera device. CONSTRUCTION CONTROLLER: Dr. Wally Norris PA. ANESTHESIA: General. HISTORY: [...] condition. Venkat Paniagua MD Vascular Surgery DJW:[email or web address] /[id number] DOWNTIME NOTE 01/15/2018 5:12 AM Signed [facility] Scheduled Downtime: 01/15/2018 1:05:00 AM to 01/15/2018 4:56:36 AM Dionicio Stevens MD 01/15/2018 8:11 AM Signed Vascular Surgery Progress Note SERVICE DATE: 01/15/2018 Vascular AND Thoracic Surgery Service Pager: For questions or concerns Mon-Fri 6a-5p please page [phone]. After 5pm and on Weekends and Holidays, please page [phone] if in ICU or [phone] if on RNF. Subjective SUBJECTIVE: SVT requiring [...] 01/14/18699 - 01/15/1865801/15/18699 - 01/16/18 0659 Shift 9953-4576 5719-5028 1745-9828 24 Hour Total 5561-8469 3585-1132 2641-4914 24 Hour Total I N T A [...] 01/12/18 0749 Abdomen) 1000 1000 2000 Tubes 2301 788 9893 3955 Drain/Tube Output (Drain/Tube 01/12/18 0100 Hemovac Midline Anterior Abdomen) 500 1125 1625 Drain/Tube Output (Drain/Tube 01/12/18 Fecal Management System) 250 30 0 280 Output (GI Feed/Drain 01/12/18 0100) 1100 619 637 0333 Dialysis 0 924 2623 3547 Dialysis Output [...] Noted - Ruptured abdominal aortic aneurysm (AAA) ([facility]) 01/12/2018 - Encephalopathy 01/13/2018 - DIC (disseminated intravascular coagulation) ([facility]) 01/12/2018 - Hemorrhagic shock ([facility]) 01/12/2018 - Acute respiratory failure ([facility]) 01/12/2018 - Cardiac arrest ([facility]) 01/12/2018 - Hypernatremia 01/12/2018 - Hypokalemia 01/12/2018 - Hypomagnesemia 01/12/2018 - Hypophosphatemia 01/12/2018 - Hyperchloremia 01/12/2018 - AAA (abdominal aortic aneurysm, ruptured) ([facility]) 01/12/2018 Overview Note: Added automatically from request for surgery [id number] 77 year old male with Ruptured AAA [...] questions or concerns Mon-Fri 6a-5p please page [phone]. After 5pm and on Weekends and Holidays, please page [phone] if in ICU or [phone] if on RNF. Kannan Felder MD 01/15/2018 9:22 AM Attested Attestation signed by Mark Woods at 01/16/2018 11:25 AM Care per vasc gen surg available to asisst with closure if needed Mark Woods MD PROGRESS NOTE EGS Surgery Progress Note Emergency General Surgery Service Pager: For questions or concerns Mon-Tue 6a-5p please page [phone]. After 5pm and on Weekends and Holidays, please page [phone] if in ICU or [phone] if on RNF. SERVICE DATE: 01/15/2018 SERVICE [...] 0659 01/15/18 07 - 01/16/18 0659 Shift 9849-5905 2090-7009 7566-9600 24 Hour Total 1634-0778 1729-6535 4807-7951 24 Hour Total I N T A [...] 01/12/18 0749 Abdomen) 1000 1000 2000 Tubes 5985 898 2906 3955 75 75 Drain/Tube Output (Drain/Tube 01/12/18 0100 Hemovac Midline Anterior Abdomen) 500 1125 1625 75 75 Drain/Tube Output (Drain/Tube 01/12/18 Fecal Management System) 250 30 0 280 0 0 Output (GI Feed/Drain 01/12/18 010) 1100 394 709 2492 0 0 Dialysis 0 924 2623 3547 [...] Noted - Ruptured abdominal aortic aneurysm (AAA) ([facility]) 01/12/2018 - Encephalopathy 01/13/2018 - DIC (disseminated intravascular coagulation) ([facility]) 01/12/2018 - Hemorrhagic shock ([facility]) 01/12/2018 - Acute respiratory failure ([facility]) 01/12/2018 - Cardiac arrest ([facility]) 01/12/2018 - Hypernatremia 01/12/2018 - Hypokalemia 01/12/2018 - Hypomagnesemia 01/12/2018 - Hypophosphatemia 01/12/2018 - Hyperchloremia 01/12/2018 - AAA (abdominal aortic aneurysm, ruptured) ([facility]) 01/12/2018 Overview Note: Added automatically from request for surgery [id number] Assessment/Plan with Ruptured AAA s/p Emergent Repair, [...] January 15, 2018 TIME: 9:18 AM PAGER: [phone] Elder Granda MD 01/15/2018 10:06 AM Signed [...] PMH of AAA who was transferred to [facility] in shock 2/2 ruptured AAA c/b [...] pt with AAA rupture, s/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 REPORT TO WAI Lovelace, DECISION SUPPORT MANAGER.MODEL BUILDER 01/15/2018 3:33 PM Signed Abdomen appears more [...] do not hesitate to contact me at [phone] with any concerns SIGNATURE: Renate Handy DO [...] follow closely Dionicio Stevens MD PGY-4 Pager: [phone] 01/15/2018, 4:05 PM Chente Whittaker MD 01/15/2018 [...] per 24 hour Intake 8140.4 ml Output 61869 ml Net -2018.6 ml DATA: I personally [...] questions or concerns Mon-Fri 6a-5p please page [phone]. After 5pm and on Weekends and Holidays, please page [phone] if in ICU or [phone] if on RNF. Subjective SUBJECTIVE: Weaning down [...] 01/16/18 0659 01/16/18699 - 01/17/18 0659 Shift 7262-3432 0458-3793 0256-7066 24 Hour Total 5708-1667 8025-1837 5530-7795 24 Hour Total I N T A [...] 16 Fr) 2 8 81 91 Tubes 313 177 6497 2675 Drain/Tube Output (Drain/Tube 01/12/18 0100 Hemovac Midline Anterior Abdomen) 022 529 6734 2575 Drain/Tube Output (Drain/Tube 01/12/18 Fecal Management [...] Noted - Ruptured abdominal aortic aneurysm (AAA) ([facility]) 01/12/2018 - Encephalopathy 01/13/2018 - DIC (disseminated intravascular coagulation) ([facility]) 01/12/2018 - Hemorrhagic shock ([facility]) 01/12/2018 - Acute respiratory failure ([facility]) 01/12/2018 - Cardiac arrest ([facility]) 01/12/2018 - Hypernatremia 01/12/2018 - Hypokalemia 01/12/2018 - Hypomagnesemia 01/12/2018 - Hypophosphatemia 01/12/2018 - Hyperchloremia 01/12/2018 - AAA (abdominal aortic aneurysm, ruptured) ([facility]) 01/12/2018 Overview Note: Added automatically from request for surgery [id number] 77 year old male with Ruptured AAA [...] resident's note and agree. Costa Miguel MD, [facility], [facility] PROGRESS NOTE EGS Surgery Progress Note Emergency General Surgery Service Pager: For questions or concerns Mon-Tue 6a-5p please page [phone]. After 5pm and on Weekends and Holidays, please page [phone] if in ICU or [phone] if on RNF. SERVICE DATE: 01/16/2018 SERVICE [...] 0659 01/16/18 07 - 01/17/18 0659 Shift 4128-4251 5604-7154 7515-3931 24 Hour Total 6580-4605 2741-2698 2137-3716 24 Hour Total I N T A [...] 2 8 81 91 23 23 Tubes 606 371 1304 2675 750 750 Drain/Tube Output (Drain/Tube 01/12/18 0100 Hemovac Midline Anterior Abdomen) 680 191 5938 2575 450 450 Drain/Tube Output (Drain/Tube 01/12/18 Fecal Management System) 0 0 0 0 50 50 Output (GI Feed/Drain 01/12/18 0100) 100 0 0 100 250 250 Dialysis 20824 2869 7376 104 104 Dialysis Output (Ultrafiltration) 2082 2423 2868 7376 104 104 Shift Total 2865 3277 4000 58134 877 877 Weight (kg) 104.7 104.7 104.2 [...] Noted - Ruptured abdominal aortic aneurysm (AAA) ([facility]) 01/12/2018 - Encephalopathy 01/13/2018 - DIC (disseminated intravascular coagulation) ([facility]) 01/12/2018 - Hemorrhagic shock ([facility]) 01/12/2018 - Acute respiratory failure ([facility]) 01/12/2018 - Cardiac arrest ([facility]) 01/12/2018 - Hypernatremia 01/12/2018 - Hypokalemia 01/12/2018 - Hypomagnesemia 01/12/2018 - Hypophosphatemia 01/12/2018 - Hyperchloremia 01/12/2018 - AAA (abdominal aortic aneurysm, ruptured) ([facility]) 01/12/2018 Overview Note: Added automatically from request for surgery [id number] Assessment/Plan 77 yo M with Ruptured AAA [...] old male transferred in critical condition from [facility] with diagnosed ruptured AAA. Patient was life-flighted to [facility]. Intubated at outside facility. Per EMS, [...] admit X 4 days after tx from [facility]. Present Diet Order: NPO Enteral Access: NG Nutritional Intake Prior to Admission: Intake hx unknown;tx from [facility] and has not been on support yet [...] : 104.2 kg (229 lb 11.5 oz) [place] Body Weight: 96kg Resting Metabolic Rate: 1746 Estimated kilocalorie needs: 0677-8453 kilocalories determined by 20-25 kcal/kg Estimated protein needs: 144 grams determined by 1.5gms/kg [place] weight Estimated fluid needs: per renal NUTRITION [...] 01/16/18 0700 - 01/17/18 0659 Intake (ml) 07318 8893.5 9167.4 8388 1518.2 Output (ml) 6865 5529 9661 22420 1791 Net (ml) 4742 3364.5 -493.6 -1754 [...] January 16, 2018 TIME: 1:44 PM PAGER: [phone] Viktoriya Alvarado RN, RN 01/16/2018 2:40 PM [...] 16, 2018 TIME: 2:38 PM PAGER/CONTACT #: [phone] Yessica Guy RN, RN 01/16/2018 5:44 PM Signed Whenever this patient comes back to the OR to be closed, an xray needs to be done prior to. PER DR. LA Felder MD 01/16/2018 6:13 PM Signed BRIEF OPERATIVE / PROCEDURE NOTE LOG ID: [id number] SURGERY/PROCEDURE DATE: 01/16/2018 INCISION/PROCEDURE START TIME: 5:30 PM INCISION CLOSE/PROCEDURE END TIME: 5:57 PM SURGEON(S)/PROCEDURALIST(S) AND CONSTRUCTION CONTROLLER(S): Surgeon(s) and Role: * Venkat Paniagua - Primary * Kannan (Luther Felder - Resident - Assisting Supervisor Concrete Stone Finishing: Dorcas Schuler SA SURGERY/PROCEDURE(S): exploratory laparotomy. Change [...] SIGNATURE: Kannan Felder MD PATIENT NAME: Naveen Aikns DATE: January 16, 2018 TIME: 6:12 PM PAGER/CONTACT #: Derian Barlow MD 01/16/2018 7:07 PM Signed ANESTHESIOLOGY DAY OF SURGERY NOTE SERVICE DATE: 01/16/2018 SERVICE TIME: 1629 : 1940 Procedure(s) (LRB): EXPLORATORY LAPAROTOMY, WASHOUT, ABTHERA VAC CHANGE (N/A) Surgeon(s): Venkat Brunner (Res) [facility] Estimated body mass index is 34.93 [...] mL (NEXTERONE) 0.5-1 mg/min INTRAVENOUS CONTINUOUS Paulo (Assembler For Puller Over Hand) Radu Last Rate: 16.67 mL/hr at 01/16/181842 [...] January 16, 2018 TIME: 7:06 PM CSN: [id number] Derian Barlow MD 01/16/2018 7:08 PM Signed [...] 7:36 PM Signed crrt taken off per horticulture professor at around 1645 for OR trip/ crrt resumed at 1930/ on 4 k bfr 200 flows at 700 / horticulture professor to try to remove some fluid off per hour depending on bp/ drsg changed to LIJ dialysis catheter/ hemosafe device x2 - report to horticulture professor /ariadna stewart rn Dionicio Stevens MD 01/17/2018 [...] 01/17/18 0659 01/17/18699 - 01/18/18 0659 Shift 1329-2269 3565-8342 1209-9034 24 Hour Total 8296-9052 2946-8004 3922-9973 24 Hour Total I N T A [...] 16 Fr) 116 5 34 155 Tubes 4887 108 6541 2955 Drain/Tube Output (Drain/Tube 01/12/18 0100 Hemovac Midline Anterior Abdomen) 850 083 322 4049 Drain/Tube Output (Drain/Tube 01/12/18 Fecal Management System) 125 0 50 175 Output (GI Feed/Drain 01/12/18 0100) 355 100 100 555 Dialysis 564 1073 2139 3776 Dialysis Output (Ultrafiltration) 564 1073 2139 3776 Shift Total 2009 9749 6003 6865 Weight (kg) 104.2 104.2 104.2 104.2 104.2 [...] Noted - Ruptured abdominal aortic aneurysm (AAA) ([facility]) 01/12/2018 - Obesity, Class I, BMI 30-34.9 01/16/2018 - Encephalopathy 01/13/2018 - DIC (disseminated intravascular coagulation) ([facility]) 01/12/2018 - Hemorrhagic shock ([facility]) 01/12/2018 - Acute respiratory failure ([facility]) 01/12/2018 - Cardiac arrest ([facility]) 01/12/2018 - Hypernatremia 01/12/2018 - Hypokalemia 01/12/2018 - Hypomagnesemia 01/12/2018 - Hypophosphatemia 01/12/2018 - Hyperchloremia 01/12/2018 - AAA (abdominal aortic aneurysm, ruptured) ([facility]) 01/12/2018 Overview Note: Added automatically from request for surgery [id number] 77 year old male with Ruptured AAA [...] mL (NEXTERONE) 0.5-1 mg/min INTRAVENOUS CONTINUOUS Paulo (Assembler For Puller Over Hand) [place] Last Rate: 16.67 mL/hr at 01/17/18 [...] 15 mL at 01/17/18 1015 No current [facility]-ordered outpatient prescriptions on file. Vitals: BP (!) [...] even. I will discuss fluid management with fine arts model. ? 2. Shock. Likely hemorrhagic shock-massive blood [...] do not hesitate to contact me at [phone] if there is any question or concern. Rosanna Talbert MD (Shen Lorenzo) Chaplain Serna Chaplain 01/17/2018 11:10 AM Signed [facility] Visit- Brief Note Name: Naveen Akins Date: January 17, 2018 Notes: Checked in w/pt's family in 3d floor WR--will continue to follow as appropriate. Agency Owner Signature: Chaplain Daphne To contact the [facility] Care Department: Please call [phone] or Page the On-Call Agency Owner at pager [phone] Thank you for the opportunity to be [...] and vac change. Costa Miguel MD, FACS, [facility] Wai Barcenas APRN.IRENE 01/17/2018 2:39 PM Signed [...] min spent coordinating care. SIGNATURE: Wai Barcenas APRN.HUMAN RESOURCES TEAM MEMBER PATIENT NAME: Naveen Akins DATE: January 17, 2018 TIME: 2:35 PM PAGER/CONTACT #: [phone] ETX#[id number] J[address] Perez [address], KRISHAN 01/17/2018 3:23 PM [...] old male transferred in critical condition from [facility] with diagnosed ruptured AAA. Patient was life-flighted to [facility]. Intubated at outside facility. Per EMS, [...] found for: PCGLUCOSE Jaimie Perez RD Pager: [phone] Increments: 3 Ariadna Stewart, RN, RN 01/17/2018 9:01 PM Signed 2030 crrt clotted horticulture professor able to return blood/new set up/ arterial and venous line both sluggish but running ART TO ART and trevor to trevor/ flows remain the same/ hemosafe device x2 report to horticulture professor -- ariadna stewart rn Chaplain Robbins Chaplain 01/18/2018 4:34 AM Signed [facility] Spiritual Care Visit- Brief Note Name: Naveen Akins Date: January 18, 2018 Notes: Visit with family in waiting room.Great support for patient. No coffee available to family. Machine on 4th floor has been broken for days. Notified nurse on 4800. Family thankful for continued visits and prayer. Agency Owner Signature: Chaplain Rosendo To contact the [facility] Care Department: Please call [phone] or Page the On-Call Agency Owner at pager [phone] Thank you for the opportunity to be [...] questions or concerns Mon-Fri 6a-5p please page [phone]. After 5pm and on Weekends and Holidays, please page [phone] if in ICU or [phone] if on RNF. Subjective SUBJECTIVE: NAEON, weaning [...] 01/18/18 0659 01/18/18699 - 01/19/18 0659 Shift 1457-8554 5035-5680 4190-9818 24 Hour Total 7075-3016 4504-2457 3667-9550 24 Hour Total I N T A [...] Fr 01/17/18 1800) 32 28 60 Tubes 4763 088 1925 Drain/Tube Output (Drain/Tube 01/12/18 0100 Hemovac Midline Anterior Abdomen) 4340 361 2666 Drain/Tube Output (Drain/Tube 01/12/18 Fecal Management System) 0 0 0 Output (GI Feed/Drain 01/12/18 0100) 0 0 0 Dialysis 2138 957 712 6679 Dialysis Output (Ultrafiltration) 2138 696 880 5619 Shift Total 3270 6840 445 1199 Weight (kg) 104.2 104.2 104.2 104.2 104.2 [...] Noted - Ruptured abdominal aortic aneurysm (AAA) ([facility]) 01/12/2018 - Obesity, Class I, BMI 30-34.9 01/16/2018 - Encephalopathy 01/13/2018 - DIC (disseminated intravascular coagulation) ([facility]) 01/12/2018 - Hemorrhagic shock ([facility]) 01/12/2018 - Acute respiratory failure ([facility]) 01/12/2018 - Cardiac arrest ([facility]) 01/12/2018 - Hypernatremia 01/12/2018 - Hypokalemia 01/12/2018 - Hypomagnesemia 01/12/2018 - Hypophosphatemia 01/12/2018 - Hyperchloremia 01/12/2018 - AAA (abdominal aortic aneurysm, ruptured) ([facility]) 01/12/2018 Overview Note: Added automatically from request for surgery [id number] 77 year old male with Ruptured AAA [...] 18, 2018 TIME: 10:43 AM PAGER/CONTACT #: [phone] Mervin Lo MD 01/18/2018 12:27 PM Attested Attestation signed by Costa Miguel at 01/18/2018 12:27 PM I saw and evaluated the patient. I reviewed the resident's note and agree. Costa Miguel MD, [facility], [facility] EGS PROGRESS NOTES SERVICE DATE: 01/18/2018 Subjective [...] 01/17/18699 - 01/18/1865801/18/18699 - 01/19/18 0659 Shift 0888-6390 3179-9205 8720-6824 24 Hour Total 0611-2193 6222-3917 8302-2359 24 Hour Total I N T A [...] 0 0 0 0 0 Dialysis 2138 540 048 0509 1068 1068 Dialysis Output (Ultrafiltration) 2138 235 850 4379 1068 1068 Shift Total 3270 1841 1367 [...] Noted - Ruptured abdominal aortic aneurysm (AAA) ([facility]) 01/12/2018 - Obesity, Class I, BMI 30-34.9 01/16/2018 - Encephalopathy 01/13/2018 - DIC (disseminated intravascular coagulation) ([facility]) 01/12/2018 - Hemorrhagic shock ([facility]) 01/12/2018 - Acute respiratory failure ([facility]) 01/12/2018 - Cardiac arrest ([facility]) 01/12/2018 - Hypernatremia 01/12/2018 - Hypokalemia 01/12/2018 - Hypomagnesemia 01/12/2018 - Hypophosphatemia 01/12/2018 - Hyperchloremia 01/12/2018 - AAA (abdominal aortic aneurysm, ruptured) ([facility]) 01/12/2018 Overview Note: Added automatically from request for surgery [id number] 77 year old male with Ruptured AAA [...] January 18, 2018 TIME: 12:17 PM Pager: [phone] Emergency General Surgery Service Pager: For questions [...] (PRECEDEX) 0.2- 0.7 mcg/kg/hr INTRAVENOUS CONTINUOUS Paulo (Assembler For Puller Over Hand) Radu Last Rate: 2.61 mL/hr at 01/18/18 [...] mL (NEXTERONE) 0.5-1 mg/min INTRAVENOUS CONTINUOUS Paulo (Assembler For Puller Over Hand) [place] Last Rate: 16.67 mL/hr at 01/18/18 [...] 15 mL at 01/18/18 0840 No current [facility]-ordered outpatient prescriptions on file. Vitals: BP 121/57 [...] do not hesitate to contact me at [phone] if there is any question or concern. Rosanna Talbert MD (Shen Lorenzo) Chaplain Barbosa Chaplain 01/18/2018 6:21 PM Signed [facility] Spiritual Care Visit- Brief Note Name: Naveen Akins Date: January 18, 2018 Notes: Pre-surgery game attendant visit: Agency Owner introduced himself and role/availability to Pt's daughter who was standing at bedside. Pt partially alert and unable to respond verbally. Pt's daughter indicated the Pt has endured 5 previous surgeries and is scheduled for his 6th the following day. Agency Owner listened emphatically and confirmed how difficult the journey has been. Pt's daughter stated the family is well supported and has been present around the clock. Agency Owner provided spiritual comfort and prayers as desired. Pt's daughter grateful for game attendant visit/prayers and provided game attendant with a hug. Pt/family would benefit from ongoing SC/support. Agency Owner to remain available. Agency Owner Signature: Chaplain Familia To contact the Spirit[facility] Department: Please call [phone] or Page the On-Call Agency Owner at pager [phone] Thank you for the opportunity to be [...] 2018 TIME: 10:03 PM Costa Miguel MD, [facility], [facility] 01/20/2018 4:15 PM Signed [facility] - Operative Report SURGEON: Costa Miguel MD PATIENT NAME: NAVEEN AKINS CSN: [id number] DATE OF SURGERY: 01/19/2018 DATE OF : 1940 SEX/AGE: M/77 PATIENT TYPE: I HOSP SVC: LICO LOCATION: [id number] DATE OF SURGERY: 01/19/2018 SURGEON: Costa Miguel MD PREOPERATIVE DIAGNOSIS: Open abdomen status post rupture of aneurysm. POSTOPERATIVE DIAGNOSIS: Open abdomen status post rupture of aneurysm. PROCEDURE: Exploratory laparotomy, partial closure of open abdomen and placement of ABThera wound VAC. CONSTRUCTION CONTROLLER: Hermelinda Ferrell MD; and Hailey, surgical coordinator. ANESTHESIA: General. INDICATIONS: Open abdomen, critically ill [...] then we started closing superiorly initially with cyzrgu-yo-tddhn sutures of #1 PDS, switching to running [...] provide assistance. Costa Miguel MD Surgery WJC:modl /[id number] Previous Version Dionicio Stevens MD 01/19/2018 8:48 AM Signed Vascular Surgery Progress Note SERVICE DATE: 01/19/2018 Vascular AND Thoracic Surgery Service Pager: For questions or concerns Mon-Fri 6a-5p please page [phone]. After 5pm and on Weekends and Holidays, [...] 0659 01/19/18 07 - 01/20/18 0659 Shift 4329-7048 5365-9769 5284-0668 24 Hour Total 7324-1176 0395-8299 3325-7014 24 Hour Total I N T A [...] Feed/Drain 01/12/18 0100) 0 0 Dialysis 1647 350 176 5544 Dialysis Output (Ultrafiltration) 1647 928 038 0676 Shift Total 2297 5879 961 9098 Weight (kg) 104.2 104.2 104.2 104.2 104.2 [...] Noted - Ruptured abdominal aortic aneurysm (AAA) ([facility]) 01/12/2018 - Obesity, Class I, BMI 30-34.9 01/16/2018 - Encephalopathy 01/13/2018 - DIC (disseminated intravascular coagulation) ([facility]) 01/12/2018 - Hemorrhagic shock ([facility]) 01/12/2018 - Acute respiratory failure ([facility]) 01/12/2018 - Cardiac arrest ([facility]) 01/12/2018 - Hypernatremia 01/12/2018 - Hypokalemia 01/12/2018 - Hypomagnesemia 01/12/2018 - Hypophosphatemia 01/12/2018 - Hyperchloremia 01/12/2018 - AAA (abdominal aortic aneurysm, ruptured) ([facility]) 01/12/2018 Overview Note: Added automatically from request for surgery [id number] 77 year old male with Ruptured AAA [...] and agree. Costa Miguel MD, FACS, [facility] EGS PROGRESS NOTES SERVICE DATE: 01/19/2018 Subjective [...] - 01/19/18 0601/19/18699 - 01/20/18 0659 Shift 2649-7915 6649-3293 9253-2436 24 Hour Total 6210-7435 2626-4099 5599-2703 24 Hour Total I N T A K E IV 1190.6 157.6 1348.2 Calcium IVPB 250 250 Fentanyl Volume 71.6 89.6 161.2 Amiodarone 176 176 NORepinephrine Volume 256 68 324 Propofol IV 37 37 Ampicillin/Sulbactam (Unasyn) IV 400 400 TPN/PPN 1210 1210 TPN 1210 1210 Shift Total 2400.6 157.6 2558.2 O U T P U T Tubes 650 300 481 0436 Drain/Tube Output (Drain/Tube 01/12/18 0100 Hemovac Midline Anterior Abdomen) 650 210 728 2364 Drain/Tube Output (Drain/Tube 01/12/18 Fecal Management System) 0 20 20 Output (GI Feed/Drain 01/12/18 0100) 0 0 Dialysis 1647 635 348 6248 Dialysis Output (Ultrafiltration) 1647 828 527 3869 Shift Total 2297 8545 575 8446 Weight (kg) 104.2 104.2 104.2 104.2 104.2 [...] Noted - Ruptured abdominal aortic aneurysm (AAA) ([facility]) 01/12/2018 - Obesity, Class I, BMI 30-34.9 01/16/2018 - Encephalopathy 01/13/2018 - DIC (disseminated intravascular coagulation) ([facility]) 01/12/2018 - Hemorrhagic shock ([facility]) 01/12/2018 - Acute respiratory failure ([facility]) 01/12/2018 - Cardiac arrest ([facility]) 01/12/2018 - Hypernatremia 01/12/2018 - Hypokalemia 01/12/2018 - Hypomagnesemia 01/12/2018 - Hypophosphatemia 01/12/2018 - Hyperchloremia 01/12/2018 - AAA (abdominal aortic aneurysm, ruptured) ([facility]) 01/12/2018 Overview Note: Added automatically from request for surgery [id number] 77 year old male with Ruptured AAA [...] Myriam SIGNATURE: Mervin Lo MD PATIENT NAME: Navene Akins DATE: January 19, 2018 TIME: 9:01 AM Pager: [phone] Emergency General Surgery Service Pager: For questions or concerns Tue-Tue 6a-5p please page [phone]. After 5pm and on Weekends and Holidays, please page [phone] if in ICU or [phone] if on RNF. Hermelinda Ferrell MD 01/19/2018 10:28 AM Signed BRIEF OPERATIVE / PROCEDURE NOTE LOG ID: [id number] Patient Name:Naveen Akins CSN: [id number] Surgery/Procedure Date: 01/19/2018 Incision/Procedure Start Time: 9:00 AM Incision Close/Procedure End Time: Surgeon(s)/Proceduralist(s) and Rn Training(s): Surgeon(s) and Role: * Venkat Paniagua - Primary * Costa Miguel - Assisting * Hermelinda (Edenilson) Ghassan - Resident - Assisting Supervisor Concrete Stone Finishing: Hailey Dixon SA Procedure(s): Procedure(s) (LRB): EXPLORATORY [...] 19, 2018 TIME: 10:26 AM PAGER/CONTACT #: [phone] Chaplain Serna Chaplain 01/19/2018 11:32 AM Signed [facility] Spiritual Care Visit- Brief Note Name: Naveen Akins Date: January 19, 2018 Notes: Checked in w/fam in 3d fl WR--pt is out of surgery and in recovery. Empathetic listening; ministry of presence. Agency Owner Signature: Chaplain Daphne To contact the Spiritual Care Department: Please call [phone] or Page the On-Call Agency Owner at pager [phone] Thank you for the opportunity to be [...] (LEVOPHED) 0-30 mcg/min INTRAVENOUS CONTINUOUS Dionicio (Res) Stveens Last Rate: 3.75 mL/hr at 01/19/18 0800 [...] do not hesitate to contact me at [phone] if there is any question or concern. [...] (LEVOPHED) 0-30 mcg/min INTRAVENOUS CONTINUOUS Dionicio (Res) Steevns Last Rate: 3.75 mL/hr at 01/19/18 0800 [...] January 19, 2018 TIME: 1:52 PM CSN: [id number] Steve Rivera, RN, RN 01/19/2018 2:28 PM [...] a RIJ TLC in place. Will follow Ji Chino, RN, RN 01/19/2018 7:42 PM Signed [...] - 01/20/18 0601/20/18699 - 01/21/18 0659 Shift 9214-4255 1274-5457 6149-3479 24 Hour Total 2268-4035 1337-1116 1101-1289 24 Hour Total I N T A K E IV 5640 389 1491 IVPB 79 79 NS 0.9% 756 41 797 Calcium IVPB 147 147 Fentanyl Volume 54 25 79 Dexmedetomidine IV 45 45 NORepinephrine Volume 78 50 128 Propofol IV 159 208 367 Ampicillin/Sulbactam (Unasyn) IV 100 200 300 TPN/PPN 1754 395 5847 TPN 5020 364 0576 Shift Total 2868 1313 4181 O U [...] Noted - Ruptured abdominal aortic aneurysm (AAA) ([facility]) 01/12/2018 - Obesity, Class I, BMI 30-34.9 01/16/2018 - Encephalopathy 01/13/2018 - DIC (disseminated intravascular coagulation) ([facility]) 01/12/2018 - Hemorrhagic shock ([facility]) 01/12/2018 - Acute respiratory failure ([facility]) 01/12/2018 - Cardiac arrest ([facility]) 01/12/2018 - Hypernatremia 01/12/2018 - Hypokalemia 01/12/2018 - Hypomagnesemia 01/12/2018 - Hypophosphatemia 01/12/2018 - Hyperchloremia 01/12/2018 - AAA (abdominal aortic aneurysm, ruptured) ([facility]) 01/12/2018 Overview Note: Added automatically from request for surgery [id number] 77 year old male with Ruptured AAA [...] 8:19 AM Incomplete {Select Nursing Progress Note Template:[id number]} Hermelinda Ferrell MD 01/20/2018 8:53 AM Attested Attestation signed by Costa Miguel at 01/20/2018 1:35 PM I saw and evaluated the patient. I reviewed the resident's note and agree. Costa Miguel MD, FACS, [facility] EGS PROGRESS NOTES SERVICE DATE: 01/20/2018 Subjective [...] 01/19/18699 - 01/20/1865801/20/18699 - 01/21/18 0659 Shift 5588-8987 0191-2970 8061-7530 24 Hour Total 5921-4449 6810-4822 4474-8955 24 Hour Total I N T A K E IV 0735 070 7547 37 37 IVPB 79 79 NS 0.9% 756 41 797 10 10 Calcium IVPB 147 147 Fentanyl Volume 54 25 79 5 5 Dexmedetomidine IV 45 45 NORepinephrine Volume 78 50 128 3 3 Propofol IV 159 208 367 19 19 Ampicillin/Sulbactam (Unasyn) IV 100 200 300 TPN/PPN 2768 066 0767 103 103 TPN 6668 672 3177 103 103 Shift Total 2868 1313 4181 [...] Noted - Ruptured abdominal aortic aneurysm (AAA) ([facility]) 01/12/2018 - Obesity, Class I, BMI 30-34.9 01/16/2018 - Encephalopathy 01/13/2018 - DIC (disseminated intravascular coagulation) ([facility]) 01/12/2018 - Hemorrhagic shock ([facility]) 01/12/2018 - Acute respiratory failure ([facility]) 01/12/2018 - Cardiac arrest ([facility]) 01/12/2018 - Hypernatremia 01/12/2018 - Hypokalemia 01/12/2018 - Hypomagnesemia 01/12/2018 - Hypophosphatemia 01/12/2018 - Hyperchloremia 01/12/2018 - AAA (abdominal aortic aneurysm, ruptured) ([facility]) 01/12/2018 Overview Note: Added automatically from request for surgery [id number] 77 year old male with Ruptured AAA [...] questions or concerns Mon-Tue 6a-5p please page [phone]. After 5pm and on Weekends and Holidays, please page [phone] if in ICU or [phone] if on RNF. Herman Sutton MD 01/20/2018 [...] attempted closure of surgical wound. Paulo Lovelace APRN.MODEL BUILDER 01/20/2018 1:40 PM Signed MICU - PROGRESS [...] 40 minutes excluding procedures. SIGNATURE: Paulo Lovelace APRN.[facility] PATIENT NAME: Naveen Akins DATE: January 20, 2018 TIME: 1:29 PM Cely Correa APRN.CNP 01/20/2018 2:32 PM Signed THORACENTESIS NOTE SERVICE DATE: 01/20/2018 SERVICE TIME: 2:15 PM PROCEDURE: Right thoracentesis with Ultrasound guidance PLUMBER PIPE FITTING: Cely Correa APRN.CNP CONSTRUCTION CONTROLLER: None PRE - PROCEDURE DIAGNOSIS: Pleural effusion [...] all aspects of it. SIGNATURE: Cely Correa APRN.HUMAN RESOURCES TEAM MEMBER PATIENT NAME: Naveen Akins DATE: January 20, 2018 TIME: 2:31 PM PAGER/CONTACT #: [phone] Costa Miguel MD, [facility], [facility] 01/22/2018 1:54 PM Signed [facility] - Operative Report SURGEON: Costa Miguel MD PATIENT NAME: NAVEEN AKINS CSN: [id number] DATE OF SURGERY: 01/21/2018 DATE OF : 1940 SEX/AGE: M/77 PATIENT TYPE: I HOSP SVC: LICO LOCATION: [id number] DATE OF SURGERY: 01/21/2018 SURGEON: Costa Miguel MD PREOPERATIVE DIAGNOSIS: Open abdomen. POSTOPERATIVE DIAGNOSIS: Open abdomen. PROCEDURE: Limited abdominal exploration and closure of wound with abdominal wound with retention sutures. CONSTRUCTION CONTROLLER: Dr. Peralta and Dr. Tristen Luz. ANESTHESIA: [...] procedure well. Costa Miguel MD Surgery WJC:modl /[id number] Dionicio Stevens MD 01/21/2018 9:01 AM Signed Vascular Surgery Progress Note SERVICE DATE: 01/21/2018 Vascular AND Thoracic Surgery Service Pager: For questions or concerns Mon-Fri 6a-5p please page [phone]. After 5pm and on Weekends and Holidays, please page [phone] if in ICU or [phone] if on RNF. Subjective SUBJECTIVE: NAEON, resp [...] 01/20/18699 - 01/21/1865801/21/18699 - 01/22/18 06 Shift 5525-1319 2045-2714 5489-3115 24 Hour Total 0986-0114 6272-7336 1747-9294 24 Hour Total I N T A K E IV 37 138 539.9 714.9 NS 0.9% 10 31 57 98 Fentanyl Volume 5 23.5 61.5 90 Dexmedetomidine IV 25.5 75 100.5 NORepinephrine Volume 3 30 73.4 106.4 Propofol IV 19 28 73 120 Ampicillin/Sulbactam (Unasyn) IV 200 200 TPN/PPN 103 237 520 860 TPN 103 237 520 860 Shift Total 496 748 0309.9 1574.9 O U T P U T Urine Urine Incontinence/Not Saved 2 x 2 x Tubes 100 8759 450 7790 Drain/Tube Output (Drain/Tube 01/19/18 1015 Midline Abdomen) 50 523 474 3662 Drain/Tube Output (Drain/Tube 01/12/18 Fecal Management System) [...] Noted - Ruptured abdominal aortic aneurysm (AAA) ([facility]) 01/12/2018 - Obesity, Class I, BMI 30-34.9 01/16/2018 - Encephalopathy 01/13/2018 - DIC (disseminated intravascular coagulation) ([facility]) 01/12/2018 - Hemorrhagic shock ([facility]) 01/12/2018 - Acute respiratory failure ([facility] [facility]) 01/12/2018 - Cardiac arrest ([facility]) 01/12/2018 - Hypernatremia 01/12/2018 - Hypokalemia 01/12/2018 - Hypomagnesemia 01/12/2018 - Hypophosphatemia 01/12/2018 - Hyperchloremia 01/12/2018 - AAA (abdominal aortic aneurysm, ruptured) ([facility]) 01/12/2018 Overview Note: Added automatically from request for surgery [id number] 77 year old male with Ruptured AAA [...] mL (PRECEDEX) 0.2-0.7 mcg/kg/hr INTRAVENOUS CONTINUOUS Paulo (Assembler For Puller Over Hand) [place] Last Rate: 9.67 mL/hr at 01/21/18 [...] 1 Drop BOTH EYES QID PRN Paulo (Assembler For Puller Over Hand) [place] 1 Drop at 01/19/18 2315 [MAR [...] January 21, 2018 TIME: 10:10 AM CSN: [id number] Mily Gonzalez, RN, RN 01/21/2018 11:19 AM Signed Post op report given Tristen Luz MD 01/21/2018 11:30 AM Attested Attestation signed by Costa Miguel at 01/21/2018 1:32 PM I was present for the critical and coleman portions of the surgery and I was immediately available to provide assistance. Costa Miguel MD, [facility], [facility] BRIEF OPERATIVE / PROCEDURE NOTE LOG ID: [id number] SURGERY/PROCEDURE DATE: 01/21/2018 INCISION/PROCEDURE START TIME: 10:43 AM INCISION CLOSE/PROCEDURE END TIME: 11:17 AM SURGEON(S)/PROCEDURALIST(S) AND CONSTRUCTION CONTROLLER(S): Surgeon(s) and Role: * Costa Miguel - [...] 11:29 AM PAGER/CONTACT #: [phone] Paulo Lovelace APRN.MODEL BUILDER 01/21/2018 12:18 PM Signed MICU - PROGRESS [...] 30 minutes excluding procedures. SIGNATURE: Paulo Lovelace APRN.MODEL BUILDER PATIENT NAME: Naveen Akins DATE: January 21, [...] 21, 2018 TIME: 12:05 PM PAGER/CONTACT #: [phone] Tracey De La Fuente, RN, RN 01/21/2018 12:49 PM Signed CRRT restarted using same orders after pt returned form OR. M100 dialyzer. Access via left neck temp HD cath. starting TMP 101. Report to Jose Stevens MD 01/22/2018 8:19 AM Attested Attestation signed by Марина De Anda at 01/22/2018 10:32 AM [facility] STAFF PHYSICIAN NOTE OF PERSONAL [...] questions or concerns Mon-Fri 6a-5p please page [phone]. After 5pm and on Weekends and Holidays, please page [phone] if in ICU or [phone] if on RNF. Subjective SUBJECTIVE: Mild hypotension [...] 01/22/18 0659 01/22/18699 - 01/23/18 0659 Shift 8107-4417 6738-4734 4132-1124 24 Hour Total 0015-7945 8993-0970 6127-7045 24 Hour Total I N T A [...] Feed/Drain 01/12/18 0100) 30 30 Dialysis 1769 8587 425 9826 Dialysis Output (Ultrafiltration) 1769 9531 624 3855 Shift Total 1874 2118 057 6018 Weight (kg) 94.1 94.1 94.1 94.1 94.1 [...] Noted - Ruptured abdominal aortic aneurysm (AAA) ([facility]) 01/12/2018 - Obesity, Class I, BMI 30-34.9 01/16/2018 - Encephalopathy 01/13/2018 - DIC (disseminated intravascular coagulation) ([facility]) 01/12/2018 - Hemorrhagic shock ([facility]) 01/12/2018 - Acute respiratory failure ([facility]) 01/12/2018 - Cardiac arrest ([facility]) 01/12/2018 - Hypernatremia 01/12/2018 - Hypokalemia 01/12/2018 - Hypomagnesemia 01/12/2018 - Hypophosphatemia 01/12/2018 - Hyperchloremia 01/12/2018 - AAA (abdominal aortic aneurysm, ruptured) ([facility]) 01/12/2018 Overview Note: Added automatically from request for surgery [id number] 77 year old male with Ruptured AAA [...] AM Previous Version [facility] Miguel MD, [facility] 01/22/2018 4:17 PM Signed Wound without issue. Further care per primary service. Costa Miguel MD, [facility], [facility] Chaplain Will Chaplain 01/23/2018 5:39 AM Signed SPIRITUALCARE Spiritual Care Visit- Brief Note Name: Naveen Akins Date: January 23, 2018 Notes: Patient's family in 3rd floor waiting room and requested prayer. Patient's mother, sisters and son. Follow up needed. Agency Owner Signature: Chaplain Suman To contact the [facility] Care Department: Please call [phone] or Page the On-Call at pager [phone] Thank you for the opportunity to be [...] questions or concerns Mon-Fri 6a-5p please page [phone]. After 5pm and on Weekends and Holidays, [...] 0659 01/23/18 07 - 01/24/18 0659 Shift 2423-3422 5102-6632 2270-9228 24 Hour Total 3872-1885 5287-3095 0666-6125 24 Hour Total I N T A K E IV 581 224 805 NS 0.9% 30 53 83 Calcium IVPB 250 250 Fentanyl Volume 33 14 47 Dexmedetomidine IV 110 47 157 NORepinephrine Volume 21 8 29 Propofol IV 37 2 39 Ampicillin/Sulbactam (Unasyn) IV 100 100 200 TPN/PPN 503 324 827 TPN 503 324 827 Shift Total 1299 188 4353 O U T P U T Drains 10 10 Negative Pressure: Output (mL) (Negative Pressure Wound Therapy 01/12/18 0749 Abdomen) 10 10 Dialysis 1452 0484 625 8361 Dialysis Output (Ultrafiltration) 1452 8865 318 8869 Shift Total 1452 6108 597 9712 Weight (kg) 89 89 86.2 86.2 86.2 [...] Noted - Ruptured abdominal aortic aneurysm (AAA) ([facility]) 01/12/2018 - Obesity, Class I, BMI 30-34.9 01/16/2018 - Encephalopathy 01/13/2018 - DIC (disseminated intravascular coagulation) ([facility]) 01/12/2018 - Hemorrhagic shock ([facility]) 01/12/2018 - Acute respiratory failure (HCC) 01/12/2018 - Cardiac arrest ([facility]) 01/12/2018 - Hypernatremia 01/12/2018 - Hypokalemia 01/12/2018 - Hypomagnesemia 01/12/2018 - Hypophosphatemia 01/12/2018 - Hyperchloremia 01/12/2018 - AAA (abdominal aortic aneurysm, ruptured) ([facility]) 01/12/2018 Overview Note: Added automatically from request for surgery [id number] 77 year old male with Ruptured AAA [...] Chaplain Will Chaplain 01/23/2018 8:04 AM Signed [facility] Spiritual Care Visit- Brief Note Name: Naveen Akins Date: January 23, 2018 Notes: Per request of patient's family I prayed for the patient this morning. Agency Owner Signature: Chaplain Suman To contact the Spiritual Care Department: Please call [phone] or Page the On-Call Agency Owner at pager [phone] Thank you for the opportunity to be [...] 23, 2018 TIME: 10:38 AM PAGER/CONTACT #: [phone] Previous Version Viry Mosher RD, LD, RD [...] cc/hr is goal, start at 10--> provides 9820-8755 calories and 113-135 pro Diprivan @ 10 [...] -- 7.2* Viry Mosher, KRISHAN, LD Pager: [phone] Increments: 3 Previous Version Lorrie Bo, RN, [...] 23, 2018 TIME: 1:00 PM PAGER/CONTACT #: [phone] Rosanna Talbert MD 01/23/2018 3:24 PM Signed [...] (PRECEDEX) 0.2- 0.7 mcg/kg/hr INTRAVENOUS CONTINUOUS Paulo (Assembler For Puller Over Hand) [place] Last Rate: 9.67 mL/hr at 01/23/18 0604 0.4 mcg/kg/hr at 01/23/18 0604 carboxymethylcellulose sodium 1-2 Drop (CELLUVISC) 1-2 Drop BOTH EYES PRN Venkat Paniagua 2 Drop at 01/22/18 2049 polyvinyl alcohol-povidone 1.4-0.6 % 1 Drop (REFRESH) 1 Drop BOTH EYES QID PRN Paulo (Assembler For Puller Over Hand) [place] 1 Drop at 01/21/18 1641 propofol [...] 15 mL at 01/23/18 0921 No current [facility]-ordered outpatient prescriptions on file. Vitals: BP 132/57 [...] do not hesitate to contact me at [phone] if there is any question or concern. [...] old male transferred in critical condition from [facility] with diagnosed ruptured AAA. Patient was life-flighted to [facility], intubated at outside facility. Per transport, patient [...] 23, 2018 TIME: 10:37 PM PAGER/CONTACT #: [phone] Previous Version Venkat Paniagua MD 01/27/2018 9:08 AM Signed [facility] - Operative Report SURGEON: Venkat Paniagua MD PATIENT NAME: NAVEEN AKINS [facility]: [id number] DATE OF SURGERY: 01/16/2018 DATE OF : 1940 SEX/AGE: M/77 PATIENT TYPE: I HOSP SVC: LICO LOCATION: [id number] DATE OF SURGERY: 01/16/2018 SURGEON: Venkat Paniagua MD The patient is an inpatient. PREOPERATIVE DIAGNOSIS: Status post ruptured aneurysm with open abdomen. POSTOPERATIVE DIAGNOSIS: Status post ruptured aneurysm with open abdomen. PROCEDURE: Exploratory laparotomy, change of wound vacuum- assisted closure, and abdominal washout. CONSTRUCTION CONTROLLER: Kannan Felder MD and Lotus Schuler SA. [...] condition. Venkat Paniagua MD Vascular Surgery HORACEW:modl /[id number] KRISTYN RAY 01/26/2018 3:33 PM Addendum MEDICATION HISTORY AND MEDICATION RECONCILIATION Patient Name:Tom Akins : 1940 Source of history:Family: Reliability of source: Only knew pharmacy he fills at ([facility] in [place]- called) Medication Nonadherence Identified: Unable to verify at this time The above information represents the best possible medication history: Yes Reconciliation completed? Yes All RECRUITING ASSOCIATE medications addressed by LIP Additional comments: Unable to discuss with Shelly (spouse) at this time. Most recent medication picked up was a 7 day course of Augmentin BID on 01/11/18. Allergies: ALLERGIES No Known Allergies Preferred Pharmacy: [facility] ([phone]) Current RECRUITING ASSOCIATE Medications: Prior to Admission medications as of [...] questions or concerns Mon-Fri 6a-5p please page [phone]. After 5pm and on Weekends and Holidays, [...] 0659 01/24/18 07 - 01/25/18 0659 Shift 7948-5680 6972-3183 9627-6949 24 Hour Total 7794-7017 0147-8822 8867-7757 24 Hour Total I N T A [...] 0 x 0 x Dialysis 1434 579 267 9667 93 93 Dialysis Output (Ultrafiltration) 1434 293 474 2193 93 93 Shift Total 1434 021 984 4619 93 93 Weight (kg) 86.2 86.2 83.6 [...] Noted - Ruptured abdominal aortic aneurysm (AAA) ([facility]) 01/12/2018 - Obesity, Class I, BMI 30-34.9 01/16/2018 - Encephalopathy 01/13/2018 - DIC (disseminated intravascular coagulation) ([facility]) 01/12/2018 - Hemorrhagic shock ([facility]) 01/12/2018 - Acute respiratory failure ([facility]) 01/12/2018 - Cardiac arrest ([facility]) 01/12/2018 - Hypernatremia 01/12/2018 - Hypokalemia 01/12/2018 - Hypomagnesemia 01/12/2018 - Hypophosphatemia 01/12/2018 - Hyperchloremia 01/12/2018 - AAA (abdominal aortic aneurysm, ruptured) ([facility]) 01/12/2018 Overview Note: Added automatically from request for surgery [id number] 77 year old male with Ruptured AAA [...] and supportive measures. Previous Version Paulo Lovelace APRN.MODEL BUILDER 01/24/2018 10:17 AM Signed MICU - PROGRESS [...] 35 minutes excluding procedures. SIGNATURE: Paulo Lovelace APRN.MODEL BUILDER PATIENT NAME: Naveen Akins DATE: January 24, 2018 TIME: 10:02 AM Chaplain Serna Chaplain 01/24/2018 10:46 AM Signed SPIRITUALCARE Spiritual Care Visit- Brief Note Name: Naveen Akins Date: January 24, 2018 Notes: Stopped by pt's rm; pt's sone busy w/staff. Silent prayer outside door. Will follow up w/fam/pt later on. Agency Owner Signature: Chaplain Daphne To contact the Spiritual Care Department: Please call [phone] or Page the On-Call Agency Owner at pager [phone] Thank you for the opportunity to be [...] 24, 2018 TIME: 10:44 AM PAGER/CONTACT #: [phone] Dorcas Palafox MD 01/24/2018 11:11 AM Signed [...] 24, 2018 TIME: 10:47 AM PAGER/CONTACT #: [phone] Mosher RD, SARA, RD [...] 1.5 at 50-60 cc/hr is goal--> provides 0800-5448 calories and 113-135 pro , currently at [...] 1655 PREALB 18.6* Viry Mosher, RD, LD, [facility] Pager: [phone] Increments: 3 Chaplain Serna Chaplain 01/24/2018 11:45 AM Signed SPIRITUALCARE Spiritual Care Visit- Brief Note Name: Naveen Akins Date: January 24, 2018 Notes: attempted to check in w/pt's fam--everyone was asleep except for his dtr, who was on the phone--we made eye contact and acknowledged one another.SC will continue to follow as needed. Agency Owner Signature: Chaplain Daphne To contact the Spiritual Care Department: Please call [phone] or Page the On-Call Agency Owner at pager [phone] Thank you for the opportunity to be [...] solution (DUONEB) 3 mL INHALATION QID Paulo (Assembler For Puller Over Hand) [place] 3 mL at 01/24/18 1125 dexmedetomidine [...] 1 Drop BOTH EYES QID PRN Paulo (Assembler For Puller Over Hand) [place] 1 Drop at 01/24/18 0838 heparin [...] 15 mL at 01/24/18 0838 No current [facility]-ordered outpatient prescriptions on file. Vitals: BP 132/57 [...] do not hesitate to contact me at [phone] if there is any question or concern. [...] time indicated below. Time may include specific [facility]-approved services including review of chest radiography, interpretation of cardiac function measurements, ECGs, pulse oximetry, ventilator management, and vascular access procedures as necessary, but does not include time spent teaching or procedures billed separately. ?? Critical care time: 35?minutes. ?? SIGNATURE: Brad Castillo MD PATIENT NAME: Naveen Akins DATE: January 24, 2018 TIME: 2:13 PM PAGER/CONTACT #:?[phone] Margaret Townsend RN, RN 01/24/2018 2:22 PM [...] by: SHEN LORENZO Authorized by: SHEN LORENZO Consent/[place] Protocol Written Consent Obtained: Yes Sign In [...] to clinical factors necessitating an emergent procedure [facility] Insertion Checklist Utilized: yes Medications: [...] Family is thankful for prayer and visits. Agency Owner Signature: Chaplain Rosendo To contact the Spiritual Care Department: Please call [phone] or Page the On-Call Agency Owner at pager [phone] Thank you for the opportunity to be [...] 25, 2018 TIME: 8:52 AM PAGER/CONTACT #: [phone] Previous Version Donnell Velazco RN, RN 01/25/2018 10:24 AM Signed Nursing Progress Note Patient Name: Naveen Akins Patient Location: [place] [address] [address]* Daily Note: Daily supervision for CRRT tx [...] 1 Drop BOTH EYES QID PRN Paulo (Assembler For Puller Over Hand) Radu 1 Drop at 01/24/18 1511 heparin [...] 15 mL at 01/24/18 2145 No current [facility]-ordered outpatient prescriptions on file. Vitals: BP 132/57 [...] do not hesitate to contact me at [phone] if there is any question or concern. [...] Impact 1.5 at 50-60 ?cc/hr is goal-->?provides 6532-5573 calories and 113-135 pro , currently at [...] 1655 PREALB 18.6* Viry Mosher RD, LD, [facility] Pager: [phone] Increments: 3 Dionicio Stevens MD 01/25/2018 1:23 PM Attested Attestation signed by Venkat Paniagua at 01/27/2018 9:29 AM I saw and evaluated the patient. Discussed with the resident and agree with resident's findings and plan as documented in the resident's note. Vascular Surgery Progress Note SERVICE DATE: 01/25/2018 Vascular AND Thoracic Surgery Service Pager: For questions or concerns Mon-Fri 6a-5p please page [phone]. After 5pm and on Weekends and Holidays, [...] 01/25/18 0659 01/25/18699 - 01/26/18 0659 Shift 5774-8128 1501-6071 1182-2894 24 Hour Total 4344-4225 0107-4371 1689-3953 24 Hour Total I N T A [...] 0 x 0 x 0 x Dialysis 759 653 7239 2350 976 976 Dialysis Output (Ultrafiltration) 702 605 8132 2350 976 976 Shift Total 121 307 1945 2570 1196 1196 Weight (kg) 83.6 83.6 [...] Noted - Ruptured abdominal aortic aneurysm (AAA) ([facility]) 01/12/2018 - Obesity, Class I, BMI 30-34.9 01/16/2018 - Encephalopathy 01/13/2018 - DIC (disseminated intravascular coagulation) ([facility]) 01/12/2018 - Hemorrhagic shock ([facility]) 01/12/2018 - Acute respiratory failure ([facility]) 01/12/2018 - Cardiac arrest ([facility]) 01/12/2018 - Hypernatremia 01/12/2018 - Hypokalemia 01/12/2018 - Hypomagnesemia 01/12/2018 - Hypophosphatemia 01/12/2018 - Hyperchloremia 01/12/2018 - AAA (abdominal aortic aneurysm, ruptured) ([facility]) 01/12/2018 Overview Note: Added automatically from request for surgery [id number] 77 year old male with Ruptured AAA [...] pursuit of trach (informed by nsg and vice president supply chain) which they seem agreeable to. Anticipate ltach [...] 25, 2018 TIME: 1:17 PM PAGER/CONTACT #: [phone] Paulo Lovelace APRN.MODEL BUILDER 01/25/2018 4:08 PM Signed MICU - PROGRESS [...] 40 minutes excluding procedures. SIGNATURE: Paulo Lovelace APRN.MODEL BUILDER PATIENT NAME: Naveen Akins DATE: January 25, [...] 25, 2018 9:37 PM [facility] #: Pager: [phone] Chaplain Barbosa Chaplain 01/25/2018 10:21 PM Signed SPIRITUALCARE Spiritual Care Visit- Brief Note Name: Naveen Akins Date: January 25, 2018 Notes: While making rounds visited Pt's family in 3rd floor WR. Family stated they are praying for a miracle. Agency Owner provided spiritual comfort and supportive presence. Per families request game attendant offered bedside prayers with Pt's RN present. Pt's RN indicated the Pt's condition is critical. Agency Owner provided SC/supprt and encouragement for Pt's RN. Agency Owner later returned and presented Pt's family with a Prayer [place]. Pt's family grateful for spiritual care/support, chaplains availability and prayer blanket. Agency Owner to remain available. Agency Owner Signature: Chaplain Familia To contact the Spiritual Care Department: Please call [phone] or Page the On-Call Agency Owner at pager [phone] Thank you for the opportunity to be [...] Date 01/25/18699 - 01/26/1865801/26/18699 - 01/27/1859 Shift 3157-2785 9932-5462 1463-8615 24 Hour Total 5087-2537 9962-6208 4109-0071 24 Hour Total I N T A [...] 01/12/18 0749 Abdomen) 0 0 Tubes 220 9256 024 4124 Drain/Tube Output (Drain/Tube 01/19/18 1015 Midline Abdomen) 20 10 0 30 Output (GI Feed/Drain 01/12/18 0100) 200 7763 541 1363 # of BMs Number of BMs 0 x 2 x 0 x 2 x Dialysis 1309 866 557 2800 Dialysis Output (Ultrafiltration) 1309 261 642 3470 Shift Total 1529 3334 773 4851 Weight (kg) 84 84 84 84 84 [...] Noted - Ruptured abdominal aortic aneurysm (AAA) ([facility]) 01/12/2018 - Obesity, Class I, BMI 30-34.9 01/16/2018 - Encephalopathy 01/13/2018 - DIC (disseminated intravascular coagulation) ([facility]) 01/12/2018 - Hemorrhagic shock ([facility]) 01/12/2018 - Acute respiratory failure ([facility]) 01/12/2018 - Cardiac arrest ([facility]) 01/12/2018 - Hypernatremia 01/12/2018 - Hypokalemia 01/12/2018 - Hypomagnesemia 01/12/2018 - Hypophosphatemia 01/12/2018 - Hyperchloremia 01/12/2018 - AAA (abdominal aortic aneurysm, ruptured) ([facility]) 01/12/2018 Overview Note: Added automatically from request for surgery [id number] 77 year old male with Ruptured AAA [...] Intake/Output Summary (Last 24 hours) at 01/26/18 0954 Last data filed at 01/26/18 0745 Gross [...] 26, 2018 TIME: 9:27 AM PAGER/CONTACT #: [phone] Chaplain Daphne, Agency Owner 01/26/2018 10:39 AM Signed SPIRITUALCARE Spiritual Care [...] follow this patient and fam as appropriate. Agency Owner Signature: Chaplain Daphne To contact the Spiritual Care Department: Please call [phone] or Page the On-Call Agency Owner at pager [phone] Thank you for the opportunity to be of service. This is an electronically created document. IF PRINTED, PLEASE DO NOT REMOVE FROM THE CHART OR MODIFY PRINTED COPY. Paulo Lovelace APRN.MODEL BUILDER 01/26/2018 10:47 AM Signed MICU - PROGRESS [...] 40 minutes excluding procedures. SIGNATURE: Paulo Lovelace APRN.MODEL BUILDER PATIENT NAME: Naveen Akins DATE: January 26, [...] 18.6* Viry Mosher, KRISHAN, LD, CNSC Pager: [phone] Increments: 3 Troy Godoy MD 01/26/2018 12:55 [...] contact the Spiritual Care Department: Please call [phone] or Page the On-Call at pager [phone] Thank you for the opportunity to be [...] working with pt; no family in room Agency Owner Signature: Chaplain Dany To contact the [facility] Care Department: Please call [phone] or Page the On-Call Agency Owner at pager [phone] Thank you for the opportunity to be [...] 0659 01/27/18 07 - 01/28/18 0659 Shift 3654-3884 1376-1561 4426-0434 24 Hour Total 1364-7034 2112-4034 6317-1875 24 Hour Total I N T A [...] x 0 x 0 x Dialysis 976 022 588 6786 Dialysis Output (Ultrafiltration) 976 190 790 8742 Shift Total 1076 171 635 5656 Weight (kg) 84 84 82.2 82.2 82.2 [...] Noted - Ruptured abdominal aortic aneurysm (AAA) ([facility]) 01/12/2018 - Obesity, Class I, BMI 30-34.9 01/16/2018 - Encephalopathy 01/13/2018 - DIC (disseminated intravascular coagulation) ([facility]) 01/12/2018 - Hemorrhagic shock ([facility]) 01/12/2018 - Acute respiratory failure ([facility]) 01/12/2018 - Cardiac arrest ([facility]) 01/12/2018 - Hypernatremia 01/12/2018 - Hypokalemia 01/12/2018 - Hypomagnesemia 01/12/2018 - Hypophosphatemia 01/12/2018 - Hyperchloremia 01/12/2018 - AAA (abdominal aortic aneurysm, ruptured) ([facility]) 01/12/2018 Overview Note: Added automatically from request for surgery [id number] 77 year old male with Ruptured AAA [...] 01/26/18699 - 01/27/1865801/27/18699 - 01/28/18 0659 Shift 1436-2073 2710-3648 1026-0145 24 Hour Total 2297-6507 0692-4151 4263-7651 24 Hour Total I N T A [...] x 0 x 0 x Dialysis 976 582 858 5344 Dialysis Output (Ultrafiltration) 976 859 336 3609 Shift Total 1076 054 739 2056 Weight (kg) 84 84 82.2 82.2 82.2 [...] Noted - Ruptured abdominal aortic aneurysm (AAA) ([facility]) 01/12/2018 - Obesity, Class I, BMI 30-34.9 01/16/2018 - Encephalopathy 01/13/2018 - DIC (disseminated intravascular coagulation) ([facility]) 01/12/2018 - Hemorrhagic shock ([facility]) 01/12/2018 - Acute respiratory failure ([facility]) 01/12/2018 - Cardiac arrest ([facility]) 01/12/2018 - Hypernatremia 01/12/2018 - Hypokalemia 01/12/2018 - Hypomagnesemia 01/12/2018 - Hypophosphatemia 01/12/2018 - Hyperchloremia 01/12/2018 - AAA (abdominal aortic aneurysm, ruptured) ([facility]) 01/12/2018 Overview Note: Added automatically from request for surgery [id number] 77 year old male with Ruptured AAA [...] questions or concerns Mon-Fri 6a-5p please page [phone]. After 5pm and on Weekends and Holidays, please page [phone] if in ICU or [phone] if on RNF. Abbi Mtz, RN, RN 01/27/2018 10:03 AM Signed WOUND CARE NURSE PROGRESS NOTE SERVICE DATE: 01/27/2018 SERVICE TIME: 939 REASON FOR VISIT: Wound TIME SPENT (minutes): 30 Patient seen today by DINESH AndradeC, and siva radiology teacher. Wound vac dressing to midline abdomen changed. [...] January 27, 2018 TIME: 10:01 AM CONTACT#: [id number] Lupe Cheng RN, RN 01/27/2018 10:38 AM [...] 27, 2018 TIME: 10:34 AM PAGER/CONTACT #: [phone] Dorcas Palafox MD 01/27/2018 11:21 AM Signed [...] Gallstone Pancreatitis Ruptured Abdominal Aortic Aneurysm (Aaa) ([facility]) Dic (Disseminated Intravascular Coagulation) ([facility]) Hemorrhagic Shock ([facility]) Acute Respiratory Failure ([facility]) Cardiac Arrest ([facility]) Hypernatremia Hypokalemia Hypomagnesemia Hypophosphatemia Hyperchloremia Encephalopathy Aaa (Abdominal Aortic Aneurysm, Ruptured) ([facility]) Obesity, Class I, Bmi 30-34.9 1. [...] 27, 2018 TIME: 10:56 AM PAGER/CONTACT #: [phone] Previous Version Janell Fabian RN, RN 01/27/2018 11:03 AM Signed Nursing Progress Note Patient Name: Naveen Akins Patient Location: [place] [address] [address]* Daily Note:0845: Pre-surg nurse called for report [...] This note was completed by: MAGALY Jose APRN.MODEL BUILDER 01/27/2018 11:20 AM Addendum MICU - PROGRESS [...] 40 minutes excluding procedures. SIGNATURE: Paulo Lovelace APRN.MODEL BUILDER PATIENT NAME: Naveen Akins DATE: January 27, [...] 1050 PREALB 17.0* Viry Mosher RD, SARA, [facility] Pager: [phone] Increments: 3 OPERATIVE NO Observed: 01/12/2018 Status: COMPLETED Source: [place] 12:[address] [facility] REPOSITORY O ID: [id number] Author: Venkat Paniagua Service: Vascular Surgery Author Type: Physician Type: Operative Report Filed: 01/15/2018 12:16 PM Note Text: [facility] - Operative Report SURGEON: Venkat Paniagua MD PATIENT NAME: NAVEEN AKINS CSN: [id number] DATE OF SURGERY: 01/12/2018 DATE OF : 1940 SEX/AGE: M/77 PATIENT TYPE: I HOSP SVC: LICO LOCATION: [id number] DATE OF SURGERY: 01/12/2018 SURGEON: Venkat Paniagua MD PREOPERATIVE DIAGNOSES: Ruptured abdominal aortic aneurysm, preoperative cardiac arrest. POSTOPERATIVE DIAGNOSES: Ruptured abdominal aortic aneurysm, preoperative cardiac arrest. PROCEDURE: Cardiopulmonary resuscitation, repair of ruptured abdominal aortic aneurysm using an 18 mm x 9 mm Hemashield graft, application of ABThera device. CONSTRUCTION CONTROLLER: Dr. Melody Dixon SA. ANESTHESIA: General. HISTORY: This patient, we were notified of about 45 minutes ago when he was at [facility], found to be hypotensive and [...] future. Venkat Paniagua MD Vascular Surgery DJW:mika /[id number] OPERATIVE NO Observed: 01/12/2018 Status: COMPLETED Source: BEULAH 12:[address] [facility] OTHER CAMP[facility] REPOSITORY O ID: [id number] Author: Venkat Paniagua Service: Vascular Surgery Author Type: Physician Type: Operative Report Filed: 01/15/2018 12:18 PM Note Text: [facility] - Operative Report SURGEON: Venkat Paniagua MD PATIENT NAME: NAVEEN AKINS CSN: [id number] DATE OF SURGERY: 01/12/2018 DATE OF : 1940 SEX/AGE: M/77 PATIENT TYPE: I HOSP [facility]: [place] LOCATION: [facility] 01/12/2018 SURGEON: Venkat Paniagua MD PREOPERATIVE DIAGNOSES: [...] monitoring. Venkat Paniagua MD Vascular Surgery HORACEW:mika /[id number] CHEST 1 VIEW Observed: 01/11/2018 Status: F Source: [place] (PORTABLE) 11:55 PM [facility] [place] [facility] Imaging Services [address] [place] [address] Chest 1 View (Portable) MR#: [id number] Acct: [id number] Name: NAVEEN AKINS Rep #: [id number] : 1940 M 77 From: Ashu Montalvo MD PCP: Jack Olmedo MD Status: REG ER Study: Chest 1 View (Portable) Date of Exam: 01/11/18 Exam# [id number] Ordering Dr: Kathy Dill STUDY: X-RAY CHEST [...] , CC: Kathy Dill; Jack Olmedo MD Demonstrator [employer] Appliances: Signed ABDOMEN/PELVIS W IV CONT Observed: 01/11/2018 Status: F Source: [place] ONLY 11:09 PM [facility] [place] [facility] Imaging Services [address] [place] [address] Abdomen/Pelvis W IV Cont ONLY MR#: [id number] Acct: [id number] Name: NAVEEN AKINS Kaylah Rep #: [id number] : 1940 77 From: David Burr DO PCP: Honorio LOREDO,Jack Status: REG ER Study: Abdomen/Pelvis W IV Cont ONLY Date of Exam: 01/11/18 Exam# [id number] Ordering Dr: Kathy Dill STUDY: CT ABDOMEN [...] David Burr DO at 23:57 EDT Tel [phone], Service support , CC: Kathy Dill; Jack Olmedo MD [employer]: Signed CBC W/DIFF, AUTOMATED Collected: 01/11/2018 Status: F Source: [place] 11:00 PM [facility] [place] TYPE CODE TESTS RESULT OUT OF [...] Lymph 3.83 Performed By: #### L100.0100 #### [facility] [address] [place], [address] PROTHROMBIN TIME W/INR Collected: 01/11/2018 Status: F Source: [place] 11:00 PM [facility] [place] TYPE CODE TESTS RESULT OUT OF RANGE REFERENCE UNITS LAB L300.4150 11.7-14.9 SECONDS High PROTIME 15.8 LAB L300.4200 Normal INR 1.3 Performed By: #### L300.3900 #### [facility] [address] [place], [address] COMPREHENSIVE METABOLIC Collected: 01/11/2018 Status: F Source: [place] PROFIL 11:00 PM [facility] [place] TYPE CODE TESTS RESULT OUT OF [...] 7 Performed By: #### L500.4050, L501.4010 #### [facility] [address] [place], [address] TROPONIN-I Collected: 01/11/2018 Status: F Source: [place] 11:00 [facility] REPOSITORY TYPE CODE TESTS RESULT OUT OF RANGE REFERENCE UNITS LAB L501.4010 <0.045 ng/mL Normal < 0.015 TROPONIN-I Result Comment: TROPONIN-I EXPECTED VALUES <0.045 Negative 0.045 - 0.590 Consistent with Cardiac Damage > OR = 0.600 Critical Value Not every elevated troponin is indicative of HI. These values should be used with clinical judgement in examining the patient's clinical picture for diagnosis. To establish a diagnosis of HI versus myocardial injury, there must be a demonstrated rise and/or fall in the troponin values, in addition to ischemic symptoms, EKG changes, new regional wall motion abnormality, and/or angiographical evidence. PLEASE NOTE: REFERENCE RANGES EDITED 17 Performed By: #### L500.4050, L501.4010 #### [facility] [address] [place], [address] RC Collected: 01/11/2018 Status: F Source: [place] 11:00 [facility] REPOSITORY TYPE CODE TESTS RESULT OUT OF REFERENCE UNITS RANGE LAB U100.0000 [id number] TRANSFUSED PRODUCT: T AND S with Crossmatch, Red Cells COUNT: 4 Performed By: #### U100.0000 #### [facility] - refer to report for specific site TYPE AND SCREEN Collected: 01/11/2018 Status: F Source: [place] 11:00 [facility] REPOSITORY Order Comment: CMV NEG? N Number [...] NEGATIVE Screen Performed By: #### B101.7450 #### [facility] [address] [place], [address] SURGICAL TISSUE EXAM Observed: 01/11/2018 Status: F Source: [facility] 12:00 AM [facility] REPOSITORY Test performed at [place] [address] NAME: NAVEEN AKINS REQUESTING: VENKAT PANIAGUA M.D. [...] which are brown-yellow to red in appearance. Straight Knife Cutter Machine sections are submitted in one cassette, to include potential vessel wall. BMP:loly AMAYA M.D., PATHOLOGIST (Electronic signature on file) Signed out: 01/13/2018 16:39 PRINTED: 01/13/2018 Page 1 of 1 Performed By: #### SURG #### [place] [address] CHEST PA AND LATERAL Observed: 01/10/2018 Status: F Source: [place] 3:33 PM [facility] [place] [facility] Imaging Services [address] [place] [address] Chest PA and Lateral MR#: [id number] Acct: [id number] Name: MABLENAVEEN Adrian Rep #: [id number] : 1940 M 77 From: Manjit Sahu MD PCP: Jack Olmedo MD Status: REG CLI Study: Chest PA and Lateral Date of Exam: 01/10/18 Exam# [id number] Ordering Dr: Jack Olmedo MD STUDY: X-RAY [...] Service support , CC: Jack Olmedo MD [employer]: Signed ABDOMEN/PELVIS WITHOUT Observed: 01/10/2018 Status: F Source: [place] CONT 3:31 PM [facility] [place] [facility] Imaging Services [address] [place] [address] Abdomen/Pelvis without Cont MR#: [id number] Acct: [id number] Name: NAVEEN AKINS Rep #: [id number] : 1940 77 From: Manjit Sahu MD PCP: Jack Olmedo MD Status: REG CLI Study: Abdomen/Pelvis without Cont Date of Exam: 01/10/18 Exam# [id number] Ordering Dr: Jack Olmedo MD STUDY: CT [...] Service support , CC: Jack Olmedo MD [employer]: Signed ERYTHROCYTE SED RATE Collected: 01/10/2018 Status: F Source: [place] 12:19 PM [facility] [place] TYPE CODE TESTS RESULT OUT OF RANGE REFERENCE UNITS LAB L102.0000 0-20 mm/hr High SED RATE 27 Performed By: #### L101.9900, L100.0100 #### [facility] [address] [place], [address] CBC W/DIFF, AUTOMATED Collected: 01/10/2018 Status: F Source: [place] 12:19 PM [facility] [place] TYPE CODE TESTS RESULT OUT OF [...] 1.80 Performed By: #### L101.9900, L100.0100 #### [facility] [place], [address] URINALYSIS, ROUTINE Collected: 01/10/2018 Status: F Source: [place] (DIPSTICK) 12:19 PM [facility] [place] Order Comment: How was Urine Obtained? [...] 25 ESTERASE Performed By: #### L400.2010 #### [facility] [address] [place], [address] COMPREHENSIVE METABOLIC Collected: 01/10/2018 Status: F Source: [facility] 12:19 PM [facility] [place] Order Comment: Is Patient Taking Vitamins [...] #### L500.4050, L501.6710, L501.9520, L503.6550, L506.0250 #### [facility] [address] [place], [place], [address] CRP Collected: 01/10/2018 Status: F Source: [place] 12:19 PM [facility] [place] Order Comment: Is Patient Taking Vitamins [...] #### L500.4050, L501.6710, L501.9520, L503.6550, L506.0250 #### [facility] [address] [place], [place], [address] THYROID STIM HORMONE Collected: 01/10/2018 Status: F Source: [place] (TSH) 12:19 PM [facility] [place] Order Comment: Is Patient Taking Vitamins or Folic Acid Supplements? N TYPE CODE TESTS RESULT OUT OF RANGE REFERENCE UNITS LAB L501.9520 0.358-3.74 uIU/mL Normal TSH 3.05 Performed By: #### L500.4050, L501.6710, L501.9520, L503.6550, L506.0250 #### [facility] [address] [place], [address] FERRITIN Collected: 01/10/2018 Status: F Source: [place] 12:19 PM [facility] [place] Order Comment: Is Patient Taking Vitamins or Folic Acid Supplements? N TYPE CODE TESTS RESULT OUT OF REFERENCE UNITS RANGE LAB L503.6550 26-388 ng/mL High FERRITIN 513 Performed By: #### L500.4050, L501.6710, L501.9520, L503.6550, L506.0250 #### [facility] [place], [address] FOLATES, (FOLIC ACID) Collected: 01/10/2018 Status: F Source: [place] 12:19 PM [facility] [place] Order Comment: Is Patient Taking Vitamins or Folic Acid Supplements? N TYPE CODE TESTS RESULT OUT OF RANGE REFERENCE UNITS LAB L506.0250 3.1-55.4 ng/mL Normal FOLATES 13.90 Performed By: #### L500.4050, L501.6710, L501.9520, L503.6550, L506.0250 #### [facility] [address] [place], [address] VITAMIN B12 Collected: 01/10/2018 Status: F Source: [place] 12:19 PM [facility] [place] TYPE CODE TESTS RESULT OUT OF RANGE REFERENCE UNITS LAB L503.0105 211-911 pg/mL Normal Vitamin B12 344 Performed By: #### L503.0105, L506.1000 #### [facility] [address] [place], [address] VITAMIN D,25 HYDROXY Collected: 01/10/2018 Status: F Source: [place] 12:19 PM [facility] [place] TYPE CODE TESTS RESULT OUT OF RANGE REFERENCE UNITS LAB L506.1000 29.95-100.01 ng/mL Normal Vitamin D 30.5 25-OH Result Comment: Vitamin D 25(OH) Status Range Deficiency <20 ng/mL (50nmol/L) Insuffciency 20 - 30 ng/mL (50 - 75 nmol/L) Sufficiency 30 - 100 ng/mL (75 - 250 nmol/L) Toxicity >100 ng/mL (>250 nmol/L) Performed By: #### L503.0105, L506.1000 #### [facility] [address] [facility] [place], [address] ANTINUCLEAR ANTIBODIES Collected: 01/10/2018 Status: F Source: [place] DIRECT 12:19 PM [facility] [place] TYPE CODE TESTS RESULT OUT OF REFERENCE UNITS RANGE LAB L3100.5475 Negative High Positive ASHWIN-DIRECT Result Comment: Performed at: [facility] [address] [id number] Cement Loader: Nahun Charles PhD, Phone: [phone] Performed By: #### L3100.5475 #### [facility] (refer to report for specific site) refer to report for address and phone number Observed: 01/10/2018 Status: F Source: [place] CULTURE, URINE 12:19 PM [facility] [place] Urine Culture Below infection level. ORGANISM 1: Mixed Gram Positive Organisms [place] Count 1000-10,000 MIX CULTURE Mixed contaminants. Submit a new specimen if indicated. Performed By: #### M100.0650 #### [facility] [address] [place] [address], [address] Observed: 01/10/2018 Status: F Source: [place] CULTURE, BLOOD (WB) 12:19 PM [facility] [place] BC No growth in 5 days. Performed By: #### M200.1000 #### [facility] [address] [place] [address] [place], [address] DOWNTIME REPORT Observed: 11/24/2017 Status: F Source: [place] 2:00 PM [facility] [place] [facility] Medical Records Department [address] [place] [address] [place] [address] Downtime Report MR#: [id number] Acct: [id number] Name: NAVEEN AKINS Rep #: [id number] : 1940 77 From: Paramjit Silva PCP: Jack Olmedo MD Status: REG CLI This patient was seen during an EMR downtime November 07, 2017 - November 14, 2017. This patient may have a combination of paper and electronic documentation or all paper documentation. All documentation is viewable within the e-chart portion of [facility] for each patient visit. 12 LEAD ELECTROCARDIOGRAM Observed: 11/21/2017 Status: F Source: [place] 8:46 AM [facility] [place] [facility] Cardiovascular Services [address] [place] [address] 12 Lead EKG 11/10/17 1605 MR#: [id number] Acct: [id number] Name: NAVEEN AKINS Rep #: [id number] : 1940 77 From: Jax Finnegan MD Attending Dr: Cammy Crowe Status: REG CLI Ordering Dr: Cammy Crowe Date: 11/10/17 Location: [facility] Sex: M C Admitted: Test Reason : [...] ECG Confirmed by JAX FINNEGAN MD ([id number]), assistant film editor KATHY SILVA ([id number]) on 11/16/2017 6:07:38 PM Referred By: Cammy Crowe Confirmed By:JAX FINNEGAN MD 11/16/17 180 Date Jax Finnegan MD CC: Cammy Crowe; Jack Olmedo MD Signed BASIC METABOLIC Collected: 11/10/2017 Status: F Source: [place] PROFILE (BMP) 11:00 AM [facility] [place] TYPE CODE TESTS RESULT OUT OF [...] GAP 7 Performed By: #### L500.2500 #### [facility] [address] [place], [address] CBC-COMPLETE BLOOD CNT Collected: 11/10/2017 Status: F Source: [place] NO DIFF 11:00 AM [facility] [place] Order Comment: RESULT(S) PREVIOUSLY REPORTED ON [...] MPV 9.7 Performed By: #### L100.0500 #### [facility] [address] [place], [address] ALLERGIES ALLERGIES DATE TYPE / CODE NAME / CODE REACTION SEVERITY SOURCE 05/07/2018 Drug famotidine/F0060 Low blood Unknown [facility] Allergy/416 88862(RXNORM) [facility] 004598(SNOM Repository ED CT) 05/07/2018 Drug metoclopramide/F Other Unknown [facility] Allergy/416 010908126(RXNO Hospital 002325(SNOM ) Repository ED CT) 10/31/2013 Drug No Known Unknown [facility] Allergy/416 Allergies/L09013 Hospital 858547(SNOM 0388(RXNORM) Repository ED CT) Drug NO KNOWN [facility] Class/67638 ALLERGIES Other [place] 1003(SNOMED Repository CT) NG/72729156 NO KNOWN [facility] 6(SNOMED ALLERGIES Health System CT) Repository ENCOUNTERS ENCOUNTERS ADMIT/DISCHARGE ACCOUNT NUMBER ADMITTING ENCOUNTER LOCATION SOURCE CLASS 05/11/2018 [id number] Ambulatory [facility] ding:CT Repository 05/07/2018/05/08/20 [id number] Emergency [address] ding:ED Repository 05/06/2018 [id number] Sj, Jh Chi Inpatient [facility] ding:TCURoom Repository : JVA25Qhm: 1 05/06/2018 [id number] Sj, Jh Chi Ambulatory BMSBuilding: [place] BMS.CF.[facility] Repository 05/06/2018 [id number] Sj, Jh Chi Ambulatory BMSBuilding: [place] BMS.CF.[facility] Repository 05/05/2018/05/06/20 [id number] Agyepong, Inpatient [address] ding:PCURoom Repository : PCT070Oow: 1 05/05/2018 [id number] Agyepon, Ambulatory BMSBuilding: [place] BMS.[facility], [facility] Repository 05/05/2018 [id number] Agyepong, Ambulatory BMSBuilding: [place] BMS.[facility], [facility] Repository 05/03/2018/05/03/20 [id number] Ambulatory BMSBuilding: [place] 18 BMS.[facility] Repository 04/04/2018/05/05/20 [id number] Sj Jh Chi Inpatient [place] 18 Encounter [facility] ding:TCURoom Repository : MBW34Oaa: 1 04/01/2018/04/04/20 [id number] [place], [place] Inpatient [place] 18 Encounter [facility] ding:PCURoom Repository : KSZ022Wux: 1 04/01/2018 [id number] [place] Ambulatory BMSBuilding: [place] BMS.[facility], [facility] Repository 04/01/2018 [id number] [place] Ambulatory BMSBuilding: [place] BMS.[facility], [facility] Repository 04/01/2018 [id number] [place] Ambulatory BMSBuilding: [place] BMS.[facility], [facility] Repository 04/01/2018 [id number] [place] Ambulatory BMSBuilding: [place] BMS.[facility], [facility] Repository 04/01/2018/04/04/20 [id number] Ambulatory BMSBuilding: [place] 18 [facility] Repository 03/29/2018 [id number] Ambulatory BMSBuilding: [place] [facility] Repository 03/28/2018/04/01/20 [id number] Sj Jh Chi Inpatient [place] 18 Encounter [facility] ding:TCURoom Repository : HXK15Obm: 1 03/09/2018/03/15/20 [id number] SOLIZ, Inpatient [place] [address] LORA Bernard [facility] Repository 03/09/2018/03/15/20 [id number] MD LORA Inpatient [address] MEDICAL Repository CENTERBuildi ng:MICURoom: 4815Bed: 01/12/2018 [id number] Ambulatory [facility] Repository 01/12/2018/01/13/20 [id number] Ambulatory [address] MEDICAL Repository CENTERBuildi ng:AKLB 01/12/2018/01/13/20 [id number] Ambulatory [address] [facility] 01/12/2018/02/11/20 [id number] PANIAGUA, Inpatient [facility] [employer] 18 VENKAT GENARO Encounter [facility] Repository 01/12/2018/02/11/20 [id number] PANIAGUA, [address]patient [address] Bernard [facility]ICAL [facility]:CVICRoom: 3233Bed: 01/12/2018 [id number] PANIAGUA, Inpatient [facility] MEDICAL Repository [facility] ng:AKSUR 01/11/2018/01/13/20 [id number] Emergency [address] ding:ED Repository 01/10/2018 [id number] [facility] ding:CT Repository 01/10/2018 [id number] [facility] ding:MTLAB Repository 11/10/2017 [id number] [facility] ding:MTLAB Repository PAYERS PAYERS ENCOUNTER GUARANTOR PAYER SUBSCRIBER SOURCE 05/11/2018 NAVEEN Adrian Primary NAVEEN [place] [id number] Insurance:MEDICARE RICHARDDOB: [facility], [facility] [id number] Health Center [address]Vvv: Number: Repository [id number] () Date:2018-05-11 05/11/2018 Secondary NOT GIVENUNK [place] Insurance:SELF PAY [facility] Number: Effective Repository Date:2018-05-11 05/07/2018 NAVEEN Adrian Primary NAVEEN [place] [id number] Insurance:MEDICARE RICHARDDOB: [facility], [facility] [id number] Health Center [address]Mjp: Number: Repository [id number] () Date:2018-05-07 05/07/2018 Secondary NOT GIVENUNK [place] Insurance:SELF PAY [facility] Number: Effective Repository Date:2018-05-07 05/06/2018 NAVEEN Adrian Primary NAVEEN [place] [id number] Insurance:MEDICARE RICHARDDOB: [facility], [facility] [id number] Health Center [address]Ewm: Number: Repository [id number] (HP) Date:2018-05-06 05/06/2018 Secondary NOT GIVENUNK [place] Insurance:SELF PAY [facility] Number: Effective Repository Date:2018-05-06 05/06/2018 NAVEEN R Primary NAVEEN [place] [id number] Insurance:MEDICARE RICHARDDOB: [facility], [facility] [id number] Health Center [address]Acs: Number: Repository [id number] (HP) Date:2018-05-06 05/06/2018 Secondary NOT GIVENUNK [place] Insurance:SELF PAY [facility] Number: Effective Repository Date:2018-05-06 05/06/2018 NAVEEN Adrian Primary NAVEEN [place] [id number] Insurance:MEDICARE RICHARDDOB: [facility], [facility] [id number] Health Center [address]Ahd: Number: Repository [id number] (HP) Date:2018-05-06 05/06/2018 Secondary NOT GIVENUNK [place] Insurance:SELF PAY [facility] Number: Effective Repository Date:2018-05-06 05/05/2018 NAVEEN Adrian Primary NAVEEN Adrian [place] [id number] Insurance:MEDICARE RICHARDDOB: [facility], [facility] [id number] Health Center [address]Mcz: Number: Repository [id number] (HP) Date:2018-05-04 05/05/2018 Secondary NOT GIVENUNK [place] Insurance:SELF PAY [facility] Number: Effective Repository Date:2018-05-04 05/05/2018 NAVEEN Adrian Primary NAVEEN [place] [id number] Insurance:MEDICARE RICHARDDOB: [facility], [facility] [id number] Health Center [address]Hch: Number: Repository [id number] (HP) Date:2018-05-04 05/05/2018 Secondary NOT GIVENUNK [place] Insurance:SELF PAY [facility] Number: Effective Repository Date:2018-05-05 05/05/2018 NAVEEN R Primary NAVEEN [place] [id number] Insurance:MEDICARE [facility]DOB[facility] [id number] Health Center [address]Qom: Number: Repository [id number] (HP) Date:2018-05-04 05/05/2018 Secondary NOT GIVENUNK [place] Insurance:SELF PAY [facility] Number: Effective Repository Date:2018-05-05 05/03/2018 NAVEEN R Primary NAVEEN Kaylah [place] [id number] Insurance:MEDICARE RICHARDDOB: [facility] [id number] Health Center [address]Vvz: Number: Repository [id number] (HP) Date:2018-04-05 05/03/2018 Secondary NOT GIVENUNK [place] Insurance:SELF PAY [facility] Number: Effective Repository Date:2018-04-25 04/04/2018 NAVEEN R Primary NAVEEN Adrian [place] [id number] Insurance:MEDICARE RICHARDDOB: [facility] [id number] Health Center [address]Mlz: Number: Repository [id number] (HP) Date:2018-04-04 04/04/2018 Secondary NOT GIVENUNK [place] Insurance:SELF PAY [facility] Number: Effective Repository Date:2018-04-04 04/01/2018 NAVEEN R Primary NAVEEN Adrian [place] [id number] Insurance:MEDICARE RICHARDDOB: [facility] [id number] [address]Vmz: Number: Repository [id number] (HP) Date:2018-04-01 04/01/2018 Secondary NOT GIVENUNK [place] Insurance:SELF PAY [facility] Number: Effective Repository Date:2018-04-01 04/01/2018 NAVEEN R Primary NAVEEN [address] [id number] Insurance:MEDICARE RICHARDDOB: [facility] [id number] Health Center [address]Lcz: Number: Repository [id number] (HP) Date:2018-04-01 04/01/2018 Secondary NOT GIVENUNK [place] Insurance:SELF PAY [facility] Number: Effective Repository Date:2018-04-01 04/01/2018 NAVEEN R Primary NAVEEN [place] [id number] Insurance:MEDICARE RICHARDDOB: [facility], [facility] [id number] Health Center [address]Emd: Number: Repository [id number] (HP) Date:2018-04-01 04/01/2018 Secondary NOT GIVENUNK [place] Insurance:SELF PAY [facility] Number: Effective Repository Date:2018-04-01 04/01/2018 NAVEEN Adrian Primary NAVEEN [place] [id number] Insurance:MEDICARE RICHARDDOB: [facility], [facility] [id number] Health Center [address]Lxb: Number: Repository [id number] (HP) Date:2018-04-01 04/01/2018 Secondary NOT GIVENUNK [place] Insurance:SELF PAY [facility] Number: Effective Repository Date:2018-04-01 04/01/2018 NAVEEN R Primary NAVEEN Handleyoster [id number] Insurance:MEDICARE RICHARDDOB: [facility] [facility] [id number] Health Center [address]Adt: Number: Repository [id number] (HP) Date:2018-04-01 04/01/2018 Secondary NOT GIVENUNK [place] Insurance:SELF PAY [facility] Number: Effective Repository Date:2018-04-01 04/01/2018 NAVEEN Adrian Primary NAVEEN Monge [id number] Insurance:MEDICARE RICHARDDOB: [facility], [facility] [id number] Health Center [address]Nlw: Number: Repository [id number] (HP) Date:2018-04-01 04/01/2018 Secondary NOT GIVENUNK [place] Insurance:SELF PAY [facility] Number: Effective Repository Date:2018-04-01 03/29/2018 NAVEEN R Primary NAVEEN Monge [id number] Insurance:MEDICARE RICHARDDOB: [facility] [place], [facility] [id number] Health Center [address]Epa: Number: Repository [id number] (HP) Date:2018-03-28 03/29/2018 Secondary NOT GIVENUNK [place] Insurance:SELF PAY [facility] Number: Effective Repository Date:2018-03-29 03/28/2018 NAVEEN R Primary NAVEEN Adrian [place] [id number] Insurance:MEDICARE [facility]ARDDOB[facility] [id number] Health Center [address]Mme: Number: Repository [id number] (HP) Date:2018-03-28 03/28/2018 Secondary NOT GIVENUNK [place] Insurance:SELF PAY [facility] Number: Effective Repository Date:2018-03-28 03/09/2018 NAVEEN R Primary NAVEEN R [facility] RICHARDDOB: Insurance:MEDICARE A RICHARDDOB: [facility] AND BPolicy Number: [id number] Repository JOSE ALBERTO RDWOOSTER, [id number] [place] [address]Rsk: Date: (HP) 01/12/2018 NAVEEN Adrian Primary NAVEEN [facility] RICHARDDOB: Insurance:MEDICARE A RICHARDDOB: [facility] AND BPolicy Number: [id number] Repository JOSE ALBERTO ARAIZASTER, [id number] [place] [address]Sib: Date: (HP) 01/12/2018 NAVEEN R Primary NAVEEN R [facility] RICHARDDOB: Insurance:MEDICARE A RICHARDDOB: Health System AND BPolicy Number: [id number] Repository JOSE ALBERTO RDMelaOOSTER, [id number] [place] [address]Hjv: Date: (HP) 01/11/2018 Naveen R Primary Naveen Monge [id number] Insurance:MEDICARE RichardDOB[facility] [id number] Hospital [place] [address]Ljf: Number: Repository [id number] (HP) Date:2018-01-11 01/11/2018 Secondary NOT GIVENUNK [place] Insurance:SELF PAY [facility] Number: Effective Repository Date:2018-01-11 01/10/2018 Naveen R Primary Naveen Monge [id number] Insurance:MEDICARE RichardD[facility] [id number] Hospital [place] [address]Xrk: Number: Repository [id number] (HP) Date:2018-01-10 01/10/2018 Secondary NOT GIVENUNK [place] Insurance:SELF PAY [facility] Number: Effective Repository Date:2018-01-10 01/10/2018 Naveen R Primary Naveen Monge [id number] Insurance:MEDICARE RichardDOB[facility] [id number] Health Center [address]Dxm: Number: Repository [id number] (HP) Date:2018-01-10 01/10/2018 Secondary NOT GIVENUNK [place] Insurance:SELF PAY [facility] Number: Effective Repository Date:2018-01-10 11/10/2017 Naveen R Primary Naveen Adrian [place] [id number] Insurance:MEDICARE RichardDOB[facility] [id number] Hospital [place] [address]Nnx: Number: Repository [id number] (HP) Date:2017-11-10 11/10/2017 Secondary NOT GIVENUNK [place] Insurance:SELF PAY [facility] Number: Effective Repository Date:2017-11-10
== END 2018-05-08 00:22 | disposition home or self-care (01) ==
PROVIDERS: Emergency Provider Emergency Medicine; Family Provider Family Medicine; PCP Family Medicine
DX: J18.9 Pneumonia, unspecified organism (principal); J90 Pleural effusion, not elsewhere classified; R91.1 Solitary pulmonary nodule; I12.9 Hypertensive chronic kidney disease with stage 1 through stage 4 chronic kidney disease, or unspecified chronic kidney disease; N18.9 Chronic kidney disease, unspecified; K59.00 Constipation, unspecified; K21.9 Gastro-esophageal reflux disease without esophagitis; Z93.0 Tracheostomy status; Z93.1 Gastrostomy status; Z86.73 Personal history of transient ischemic attack (TIA), and cerebral infarction without residual deficits; Z79.82 Long term (current) use of aspirin; Z79.899 Other long term (current) drug therapy
CPT/HCPCS: 71260; 74177; 81001; 96361; 96365; 99282; J7030; Q9967; A4216

== ENCOUNTER → 2018-05-11 23:11 | Outpatient (CLI) | payer MEDICARE, SELFPAY ==
[2018-05-07 19:47] VITALS: BMI 21.8
--- NOTE | 2018-05-12 01:15 | CT_ITS ---
STUDY: CT ABDOMEN AND PELVIS WITHOUT CONTRAST REASON FOR EXAM: Male, 78 years old. Increasing lower abdominal pain. RADIATION DOSAGE (If Supplied By Facility): CTDIvol = ( 14.78 ) mGy, DLP = ( 745.72 ) mGycm TECHNIQUE: Transaxial images were obtained from the dome of the diaphragm to the symphysis pubis without oral contrast, and without intravenous contrast. Sagittal and coronal images were reconstructed. Individualized dose optimization techniques were used for this CT. COMPARISON: CT of the abdomen and pelvis dated February 05, 2018. FINDINGS: There appears to be bilateral basilar dependent atelectasis with groundglass attenuation. The visualized portions of the heart are within normal limits. There are vascular calcifications of the coronary arteries. Normal liver. There is non-visualization of the gallbladder, which may be secondary to either contraction or a prior cholecystectomy. Normal spleen. There is diffuse atrophy of the pancreas. Normal bilateral adrenal glands. Normal right kidney. Normal left kidney. Normal visualized stomach. There is no evidence for dilated bowel, ascites or pneumoperitoneum. Stool is visible throughout the colon with scattered colonic diverticula. There is large amount of stool in rectum. The appendix is visualized and appears normal. The patient apparently has had repair of abdominal aortic aneurysm. A fatty-containing masslike process is visible just left of the abdominal aorta presumably related to the repair. Surgical clips are visible in around the aorta are related to the repair. Normal inferior vena cava. Normal retroperitoneum. Normal urinary bladder. Normal visualized prostate gland. There is a right-sided inguinal hernia containing bowel. There are diffuse degenerative changes of the visualized lumbar spine. CT/Abdomen/Pel W ORAL Cont Only IMPRESSION: 1. Patient has a right sided inguinal hernia containing bowel. 2. Possible rectal stool impaction. 3. Sequela of repair of abdominal aortic aneurysm. 4. Bilateral basilar dependent atelectasis and/or early airspace disease. Electronically Signed: Miya Jeffries MD at 2:13 EST , Service support ,
== END ==
PROVIDERS: Family Provider Family Medicine; PCP Family Medicine; Visit Provider Family Medicine Geriatric Medicine
DX: R10.30 Lower abdominal pain, unspecified (principal)
CPT/HCPCS: 74176

== ENCOUNTER → 2018-05-25 11:24 | Outpatient (CLI) | payer MEDICARE, SELFPAY ==
[2018-05-07 19:47] VITALS: BMI 21.8
--- NOTE | 2018-05-25 11:29 | CT_ITS ---
STUDY: CT BRAIN WITHOUT CONTRAST REASON FOR EXAM: Male, 78 years old. Altered mental status. RADIATION DOSAGE (If Supplied By Facility): CTDIvol = ( 60.81 ) mGy, DLP = ( 1021.47 ) mGycm TECHNIQUE: Transaxial CT imaging of the brain was performed without administration of intravenous contrast material. Individualized dose optimization techniques were used for this CT. COMPARISON: Comparison is made with prior study dated May 04, 2018. FINDINGS: Normal soft tissue structures. Normal calvarium. There is moderate cerebral atrophy with widening of the extra-axial spaces and ventricular dilatation. There are areas of decreased attenuation within the white matter tracts of the supratentorial brain, consistent with microvascular disease changes. Normal basal ganglia and thalami. Normal brainstem. There is mild cerebellar atrophy. There is no intracranial hemorrhage. There are no findings of an acute ischemic infarction. Atherosclerotic calcification of the vertebral arteries and cavernous portions of the internal carotid arteries bilaterally. Mucosal thickening of the left maxillary sinus. Mucosal thickening of the left ethmoid sinus. CT/Brain/Head without Contrast IMPRESSION: Chronic involutional changes of the brain. Electronically Signed: Bertrand Steel MD at 12:08 EST Tel [phone], Service support ,
== END ==
PROVIDERS: Family Provider Family Medicine; PCP Family Medicine; Referring Provider Family Medicine Geriatric Medicine; Visit Provider Family Medicine Geriatric Medicine
DX: R41.82 Altered mental status, unspecified (principal)
CPT/HCPCS: 70450

== ENCOUNTER 2018-05-25 13:48 | Inpatient (IN) | payer MEDICARE, SELFPAY ==
[2018-05-25] VITALS (11 sets, daily range): BP systolic 86–134; BP diastolic 56–87; PULSE 79–95; RESP 18–27; TEMP 36.4–37.2; O2SAT 98–100; BMI 22.6; BMI 22.7; BMI 22.1
--- NOTE | 2018-05-25 13:58 | EKG12_ITS ---
Test Reason : NEAR SNYCOPE Blood Pressure : / mmHG Vent. Rate : 093 BPM Atrial Rate : 093 BPM P-R Int : 108 ms QRS Dur : 086 ms QT Int : 394 ms P-R-T Axes : 030 -36 025 degrees QTc Int : 489 ms Sinus rhythm with short WA Left axis deviation Nonspecific ST abnormality Prolonged QT Abnormal ECG When compared with ECG of 05-MAY-2018 10:43, Premature ventricular complexes are no longer Present Confirmed by MOY GEE ([id number]), food expeditor KATHY SILVA ([id number]) on 05/31/2018 2:53:34 PM Referred By: JONA Confirmed By:MOY GEE
--- NOTE | 2018-05-25 14:10 | ED.DCSUM_ITS ---
- ER Visit Summary Date of Service: 05/25/18 Chief Complaint: [] Change in level of consciousness on TCU History of Present Illness: The patient is a 78 M [] on TCU related to aortic aneurysm rupture surgical repair, he has had multiple complications per the family recently he has been doing well. At his baseline he can answer questions converse with staff he can move his upper extremities he has not regained use of his lower extremities. No abdominal pain no vomiting he has had to have his PEG tube replaced a few times confirmation via contrast of appropriate placement, no vascular issues, today he basically went to a swallowing study procedure complete without uncomplicated as is being brought back to the bed he was apparently trying to be positioned into the bed where he had an episode where he became very tense seem to tense up with all of his muscles and then he became unresponsive, a rapid response team was called, he had evaluation including CT chest x-ray that were unremarkable per the staff were involved with rapid response team they noted that he began talking to them was back to his baseline and he was allowed to stay on TCU. The family reports the patient has not regained consciousness since the episode he has his eyes closed he is nonverbal he will not speak he does not move his extremities much and they are concerned about the above and he was brought down to the emergency department In the emergency department he had his eyes closed he again had nonpurposeful movements of his extremities primarily keeping across across his chest and then he had a spell where he seemed to get very tense had facial grimacing no obvious motor or or jerking activities beyond that, Physical Examination: [] 122/75 General, no distress resting comfortably HEENT is generally unremarkable eyes are closed he will not open them the right pupil appears to be a 3 mm and reactive the left at 2 The neck is supple no adenopathy, he has a a closing tracheostomy stoma, his heart tones are unremarkable Cardiovascular, regular rate and rhythm Lungs, clear bilateral Abdomen, soft nontender Extremities, no clubbing cyanosis or edema Neurologic, his eyes are closed he has arms crossed across his chest he is moving his fingers he has some movement of the toes bilaterally he does not respond to verbal or painful stimuli his airways intact Did review the above information with the staff at the care of him to during the MECHANICAL ENGINEERING DRAFTSPERSON, reviewed the head CT and the chest x-ray which were unremarkable The screening labs are all generally unremarkable see those reports, I spoke with Dr. Mensah his attending physician, he asked that we confer with the 2 daughters regarding the need for admission versus returning to TCU, spoke with the daughters they feel that the patient is still less responsive than his baseline and would like him admitted for further treatment I will have have the hospitalist service see him for further management Test Results: [] Emergency Department Course and Treatment: [] Treatment Plan: [] Disposition: [] admit stable Impression: [] Change in level of consciousness, nonspecific jerking activity of upper extremities and face, recent aortic aneurysm rupture with surgical repair This note was generated with [employer] dictation software. It may contain incorrect words, spelling, and punctuation that were not noted in review of the chart prior to signing ED Disposition - Plan for ED Patient: Chief Complaint: Alt LOC Referrals: Jack Olmedo MD [Primary Care Provider] -
[2018-05-25 14:31] LABS: Absolute Neutrophil Count 3.5 X10^3/uL (2.0-7.7); Basophil# 0.01 X10^3/uL; Basophil% 0.2 % (0-1); Eosinophil# 0.54 X10^3/uL; Hematocrit 29.7 % (40-54); Hemoglobin 9.8 g/dl (13.0-16.5); Mean Corpuscular Hgb 30.7 pg (27.0-32.0); Mean Corpuscular Volume 93.1 fL (80-94); Mean Platelet Vol. 9.2 fl (6.2-12.0); Monocyte# 0.46 X10^3/uL; Monocyte% 7.7 % (0-10); Neutrophil # 3.48 X10^3/uL (2.7-7.7); Neutrophil % 57.9 % (47-70); POSITIVE COUNT NO; POSITIVE DIFFERENTIAL NO; POSITIVE MORPHOLOGY NO; Platelet Count 244 K/mm3 (150-450); RBC Distribution Width SD 48.8 fl (35.1-43.9); Red Blood Count 3.19 M/mm3 (4.6-6.2)
[2018-05-25 14:44] LABS: Anion Gap 8 (5-15); BUN 33 mg/dL (7-18); BUN/Creat Ratio 26.2 RATIO (10-20); Calcium,Total 9.7 mg/dL (8.5-10.1); Chloride 103 mmol/L (98-107); Creatinine, Serum 1.26 mg/dL (0.70-1.30); EST Glomerular Filtration Rate 59 mL/min (>60); Est Glom Filt Rate - Afr Amer 71 mL/min (>60); Estimated Creatinine Clearance 49.06 ml/min; Glucose 109 mg/dL (74-106); Potassium 4.6 mmol/L (3.5-5.1); Sodium Level 137 mmol/L (136-145)
[2018-05-25 14:50] LABS: Bacteria 0 SEEN /hpf (None Seen); Mucous, Urine 0 SEEN /hpf (<or=2+); White Blood Cells 0 SEEN /hpf (0-5)
[2018-05-25 14:53] LABS: Color, Urine Yellow (Yellow); Glucose, Dipstick Normal (Normal); Ketone-Dipstick Negative (Negative); Leukocyte Esterase-Dipstick Negative /ul (Negative); Nitrite-Dipstick Negative (Negative); Occult Blood-Urine Negative /ul (Negative); Protein-Dipstick Negative (Negative); Urine Bilirubin Dipstick Negative (Negative); Urine Clarity Sl. Cloudy (Clear); Urine Urobilinogen Normal (Normal)
[2018-05-25 15:00] LABS: Red Blood Cells-Urine 0-5 SEEN /hpf (0-5)
[2018-05-25 15:01] LABS: Squamous Epithelial Cells - UA 0-5 SEEN /hpf (0-5)
--- NOTE | 2018-05-25 15:26 | CM.ED ---
SOCIAL WORK NOTE: THIS WORKER REQUESTED TO FOLLOW UP WITH FAMILY REGARDING D/C PLANNING, QUESTIONS AND CONCERNS. PT IS FROM TCU AND HAD CHANGE IN STATUS AND PRESENTS TO THE ED WITH ALTERED LOC. THERE IS A PLANNED D/C ON TCU FOR 06/01/18. UPON THIS WORKER ENTERING ROOM, DR. MAYNARDYED IN WITH PT AND FAMILY. FAMILY REQUESTING PT BE ADMITTED D/T CONCERNS WITH PT'S STATUS. DR. FERGUSON TO SPEAK WITH HOSPITALIST. FAMILY WITH QUESTIONS REGARDING IF BED WILL HELD ON TCU AND IF PT CAN RETURN AFTER HOSPITAL ADMISSION. INFORMED FAMILY THIS WORKER WILL FOLLOW UP WITH [facility] ON TCU AND WILL UPDATE CASE MANAGEMENT/SUPERVISOR PRESSING DEPARTMENT ON INPATIENT. FAMILY IN AGREEMENT WITH PLAN. DISCUSSED PT'S PRESENT STATUS AND FURTHER NEEDS. EDUCATION PROVIDED ON PALL CARE. CALL TO [facility] ON TCU. BED TO BE HELD FOR PT. PLAN: PATIENT TO BE ADMITTED.
--- NOTE | 2018-05-25 15:43 | NURSING ---
PCU CHNAGE IN MENTAL STATUS, HX OF RUPTURED AAA REPAIR, MULITPLE HEALTH PROBLEMS GINGERKY OBS
--- NOTE | 2018-05-25 18:22 | HP.PCM_ITS ---
Problem List (1) Syncope and collapse Status: Acute (2) Change in mental status Status: Acute Qualifiers: Altered mental status type: somnolence Qualified Code(s): R40.0 - Somnolence History of Present Illness Date of Admission: 05/25/18 Chief Complaint: Mental status change with somnolence, syncope The patient is a 78 year old M who was seen in the emergency room at [facility] being [facility] where he was undergoing rehab following complications from an aortic aneurysm repair which was performed in January 2018. Patient had the surgery at [facility], he was then sent to an LTAC in [place] for rehab, subsequently transferred back to [facility], then he was sent again to an LTAC, from the LTAC he was admitted to [facility] for further rehab. According to the patient's family who were in the room at the time of my examination in the ER, patient has not walked since January 2018, he does carry on conversations according to the patient's family, and is able to use his arms and hands. However, I talked with nursing personnel in TCU, they provide me with a different picture of how functional the patient is, nursing tells me the patient does not carry on long conversations at all and will only say a few words, he is not able to stand. Patient also does not follow commands at times. Patient had a similar episode to the one in the TCU today, in March 2018 in the TCU, and was seen by neurology who did not feel that he had a seizure disorder or stroke. Today in the TCU, patient had an episode- according to his family members-of some shortness of breath while in bed and subsequently the patient passed out briefly. He was then hard to awaken, he did not respond to verbal stimuli-only painful stimuli. Patient underwent a CT scan of the head which showed no acute process only involutional brain changes. Workup in the emergency room included labs which showed a slightly low hemoglob in at 9.8, BUN was slightly elevated at 33, glucose was 109. Patient's urinalysis was unremarkable, patient's troponin was unremarkable, and his chest x-ray was unremarkable. Patient had an EKG which showed a normal sinus rhythm without evidence of ischemic changes. I was called to admit the patient for mental status change and his syncopal episode, when I went into examine the patient and talked with his family at the bedside, patient's eyes opened and he said a few words which were appropriate. Patient could not however provide a review of systems to this examiner, medical information was gleaned from the patient's family and the patient's medical record. 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 Patient's last EEG at this institution appears to have been done in March 2018, this EEG was read out as showing an abnormality suggestive of medication affect. There was also noted to be significant muscle artifact throughout the EEG. Patient's last brain MRI was performed on May 05, 2018 here-it showed moderate atrophy and mild periventricular white matter ischemic changes with an old right lacunar infarct. No acute ischemic changes were noted. Again, I do not think he needs a repeat MRI unless his mental status does not return to baseline. Again, it appears that his baseline is impaired. Past Medical History Past Medical History (Chronic Problems): Chronic Problems (Last Reviewed 05/05/18 @ 17:35 by RICA Rosenberg) Malnutrition (Chronic) Anoxic encephalopathy (Chronic) Abdominal aortic aneurysm, ruptured (Chronic) 01/11/2018 Hyperlipidemia (Chronic) Iron deficiency anemia (Chronic) GERD (gastroesophageal reflux disease) (Chronic) Dysphagia (Chronic) Anemia (Chronic) Vasovagal syndrome (Chronic) Coronary artery disease (Chronic) Coronary artery disease (Chronic) Hypertension (Chronic) Medical History: Medical History (Last Reviewed 05/05/18 @ 17:35 by RCIA Rosenberg) Abdominal aortic aneurysm, ruptured (Chronic) I71.3 01/11/2018 Cardiac arrest (Inactive) I46.9 Hyperlipidemia (Chronic) E78.5 Iron deficiency anemia (Chronic) D50.9 GERD (gastroesophageal reflux disease) (Chronic) K21.9 Dysphagia (Chronic) R13.10 Anemia (Chronic) D64.9 Vasovagal syndrome (Chronic) R55 Coronary artery disease (Chronic) I25.10 Coronary artery disease (Chronic) I25.10 Hypertension (Chronic) I10 Allergies famotidine [From Pepcid] Adverse Reaction (Verified 05/07/18 19:47) Low blood pressure metoclopramide [From Reglan] Adverse Reaction (Verified 05/07/18 19:47) Other Home Medications: Ambulatory Orders Medication Instructions Recorded Ferrous Sulfate Syrup 300 mg GT BID 03/28/18 Heparin Injection [(None)] 5,000 units SUBCUT BID 03/28/18 Lansoprazole [Prevacid] 30 mg GT DAILY 03/28/18 Acetaminophen Liquid [Tylenol 650 mg GT Q4H PRN PRN 05/05/18 Liquid] Menthol/Lanolin/Calamine/Znox 1 applic TOPICAL BID 05/05/18 [Calmoseptine Ointment] Nut.sup,Spec,Lac-Free,Iron/Fos 40 ml GT DAILY 05/05/18 [[place] Hn Liquid] Polyvinyl Alcohol [Artificial 1 drop OP Q4H PRN PRN 05/05/18 Tears] Aspirin [Aspirin, Baby] 81 mg GT DAILY@0800 05/06/18 Atorvastatin Calcium [Lipitor] 40 mg GT QHS 05/06/18 Bisacodyl [Dulcolax] 10 mg RECTAL DAILY PRN suppos. 05/18/18 Ipratropium/Albuterol Sulfate 3 ml INHALATION Q6HWA.RT PRN 05/18/18 [Duoneb] ampul.neb Nystatin Powder [Mycostatin Powder] 1 applic TOPICAL 0600,2200 bottle 05/18/18 Polyethylene Glycol 3350 [Miralax] 17 gm PO DAILY packet 05/18/18 Senna/Docusate Sodium [Senokot-S] 2 tablet PO BID tablet 05/18/18 Sodium Chloride 0.65% [[place] Nasal 2 spray NASAL BID PRN PRN 05/18/18 [place]] spray.btl 0.9 % Sodium Chloride [Normal 5 - 15 ml IV UD PRN 05/25/18 Saline Flush] Fluticasone 0.05% [Flonase Nasal 1 spray NASAL BID 05/25/18 [place]] Surgical History: Surgical History (Last Reviewed 05/05/18 @ 17:35 by Abimbola Morris, MUNITIONS WORKER-C) H/O abdominal aortic aneurysm repair Z98.890 7 surgeries related to this, also had a wound vac H/O heart artery stent Z95.5 H/O hernia repair Z98.890, Z87.19 Hx of cholecystectomy Z90.49 Left shoulder surgery 1998? 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 Psychiatric History: No pertinent psych hx Lives: Long-Term Smoking Status: Never smoker Tobacco Use: Non-smoker Alcohol: None Drugs: None - *Family History Paternal Family History: Family History (Last Reviewed 05/05/18 @ 17:35 by RICA Rosenberg) Sister Factor 5 Leiden mutation, heterozygous Aneurysm Sister Aneurysm History Items: - - No marked maternal or paternal family history reported including HD, DM, CA. Maternal Family History: Family History (Last Reviewed 05/05/18 @ 17:35 by RICA Rosenberg) Sister Factor 5 Leiden mutation, heterozygous Aneurysm Sister Aneurysm History Items: - - No marked maternal or paternal family history reported including HD, DM, CA. Review of Systems Comment: Review of systems was unable to be obtained due to patient's somnolence, information was obtained from the patient's family, his medical records, and his nurses in the TCU. VTE Information - Inpt Only VTE Present on Admission: No VTE Mechan Device Prophylaxis: None VTE Pharm Prophylaxis ordered?: Yes Patient Problems: Active and Suspected Problems (Last Reviewed 05/05/18 @ 17:35 by RICA Rosenberg) Syncope and collapse (Acute) Change in mental status (Acute) - Physical Exam General: No apparent distress, Well developed, Lethargic HEENT: Atraumatic, PERRLA, EOMI, Normocephalic Oral: Moist Mucosa Neck: Supple, No JVD, Negative Carotid Bruits, Trachea Midline, Thyroid Normal Size and Texture Lungs: Clear to auscultation, Normal air movement, No rhonchi, No wheeze, No rales Cardiovascular: Regular rate, Regular Rhythm, Normal S1, Normal S2, No murmurs, No Ectopic Activity, PMI Normal, No rub noted, No Gallop Abdomen: Bowel Sounds Present, Soft, Non Tender, Non-Distended, - - PEG tube in place Extremities: No clubbing, No cyanosis, No edema, Capillary Refill Less than 3 Seconds Skin: No rashes Neurological: Cranial nerves II-XII grossly intact, Neuro grossly intact Psych/Mental Status: Flat Affect, - - Patient will respond to simple questions by shaking his head yes or now, he also is able to provide 1 word answers at times Vital Signs Temp Pulse Resp BP Pulse Ox 98.7 F 88 18 95/56 L 99 05/25/18 16:57 05/25/18 16:57 05/25/18 16:57 05/25/18 16:57 05/25/18 16:57 Oxygen Flow Rate (L/min) 2 Oxygen Delivery Method Nasal Cannula Weight: 70.1 kg Body Mass Index (BMI) 22.1 Finger Stick Blood Glucose 104 Laboratory Tests Past 24 Hrs 05/25/18 05/25/18 05/25/18 14:10 14:10 14:10 WBC 6.0 RBC 3.19 L Hgb 9.8 L Hct 29.7 L MCV 93.1 MCH 30.7 MCHC 33.0 RDW 15.0 H RDW Differential 48.8 H Plt Count 244 MPV 9.2 Immature Gran % (Auto) 0.200 Neut % (Auto) 57.9 Lymph % (Auto) 25.0 [place] % (Auto) 7.7 Eos % (Auto) 9.0 H Baso % (Auto) 0.2 Absolute Neuts (auto) 3.5 Absolute Lymphs (auto) 1.50 Total Counted Not Reportable Sodium 137 Potassium 4.6 Chloride 103 Carbon Dioxide 26.0 Anion Gap 8 BUN 33 H Creatinine 1.26 Estim Creat Clear Calc 49.06 Est GFR (MDRD) Af Amer 71 Est GFR (MDRD) Non-Af 59 L BUN/Creatinine Ratio 26.2 H Glucose 109 H Calcium 9.7 Troponin I < 0.015 B-Natriuretic Peptide 49.0 Urine Color Urine Clarity Urine pH Ur Specific [place] Urine Protein Urine Glucose (UA) Urine Ketones Urine Occult Blood Urine Nitrite Urine Bilirubin Urine Urobilinogen Ur Leukocyte Esterase Urine RBC Urine WBC Ur Squamous Epith Cells Urine Bacteria Urine Mucus 05/25/18 14:40 WBC RBC Hgb Hct MCV MCH MCHC RDW RDW Differential Plt Count MPV Immature Gran % (Auto) Neut % (Auto) Lymph % (Auto) [place] % (Auto) Eos % (Auto) Baso % (Auto) Absolute Neuts (auto) Absolute Lymphs (auto) Total Counted Sodium Potassium Chloride Carbon Dioxide Anion Gap BUN Creatinine Estim Creat Clear Calc Est GFR (MDRD) Af Amer Est GFR (MDRD) Non-Af BUN/Creatinine Ratio Glucose Calcium Troponin I B-Natriuretic Peptide Urine Color Yellow Urine Clarity Sl. Cloudy Urine pH 7.0 Ur Specific [place] 1.010 Urine Protein Negative Urine Glucose (UA) Normal Urine Ketones Negative Urine Occult Blood Negative Urine Nitrite Negative Urine Bilirubin Negative Urine Urobilinogen Normal Ur Leukocyte Esterase Negative Urine RBC 0-5 SEEN Urine WBC 0 SEEN Ur Squamous Epith Cells 0-5 SEEN Urine Bacteria 0 SEEN Urine Mucus 0 SEEN Assessment/Plan All Active Problems (Last Reviewed 05/05/18 @ 17:35 by Abimbola Morris NP-C) TIA (transient ischemic attack) (Resolved) Syncope and collapse (Acute) Change in mental status (Acute) Stroke-like symptoms (Resolved) #1 acute syncopal episode-etiology unclear at this point, might be vasovagal in nature or arrhythmia genic, I do not think his episode today was a result of a stroke or seizure. I do not feel patient needs any further imaging studies or another EEG. At the time of my examination, patient is able to respond to some questions appropriately and able to talk single words. Again, according to nursing in TCU, this may be the patient's baseline. I believe the patient's family is in denial as to what the patient is actually able to do at baseline in TCU. Patient will be monitored on telemetry under observation status on PCU. #2 chronic debility #3 possible chronic encephalopathy secondary to debility and multiple medical issues-patient will need rehab in a long-term extended care facility rather than her short-term extended care facility in my opinion. #4 status post repair of abdominal aortic aneurysm 01/11/18 with prolonged hospitalization and LTAC stay #5 moderate oral dysphasia and mild oropharyngeal dysphasia-patient will remain n.p.o. at this time, I will not restart his tube feedings at this time, meds will be given down his PEG tube. Patient will need to be reevaluated in the morning as to restarting his tube feeds or oral feeding. Speech therapy recommended a mechanical soft texture with thin liquid diet today after the patient had a videofluoroscopic swallowing exam performed before his episode in TCU. Code Visit OBSV E&M: 98074 Initial observation care L3
[2018-05-25] MEDS: Atorvastatin Calcium 40 MG Tablet GT (23:26)
[2018-05-26] VITALS (12 sets, daily range): BP systolic 107–146; BP diastolic 52–91; PULSE 82–94; RESP 18–20; TEMP 36.5–36.9; O2SAT 94–97
[2018-05-26] MEDS: Heparin Injection (Vial) 5,000 UNIT/ML VIAL 5000 UNIT SC ×4 (00:13→22:40)
[2018-05-26] MEDS: 0.9% Normal Saline 1,000 ML 100 ML IV ×3 (00:37→23:57)
[2018-05-26] MEDS: Nystatin Powder 15gm Bottle 1 APPLIC TOPICAL ×2 (06:11→22:44)
[2018-05-26 07:16] LABS: Anion Gap 9 (5-15); BUN 27 mg/dL (7-18); BUN/Creat Ratio 24.5 RATIO (10-20); Calcium,Total 9.6 mg/dL (8.5-10.1); Chloride 105 mmol/L (98-107); EST Glomerular Filtration Rate 69 mL/min (>60); Est Glom Filt Rate - Afr Amer 83 mL/min (>60); Estimated Creatinine Clearance 54.88 ml/min; Glucose 89 mg/dL (74-106); Potassium 4.1 mmol/L (3.5-5.1); Sodium Level 138 mmol/L (136-145)
[2018-05-26] MEDS: Aspirin 81 MG TAB.CHEW GT (10:51)
[2018-05-26] MEDS: Menthol/Lanolin/Calamine/Znox 113 GM Tube 1 APPLIC TOPICAL ×2 (10:52→22:41)
[2018-05-26] MEDS: Ferrous Sulfate 300 MG/5 ML UDC GT (10:53)
--- NOTE | 2018-05-26 11:16 | CT_ITS ---
STUDY: CT ABDOMEN AND PELVIS WITH CONTRAST REASON FOR EXAM: Male, 78 years old. Abdominal pain. Prior abdominal aortic aneurysm repair. RADIATION DOSAGE (If Supplied By Facility): CTDIvol = ( 11.29 ) mGy, DLP = ( 1038.52 ) mGycm TECHNIQUE: Transaxial images were obtained from the dome of the diaphragm to the symphysis pubis with oral contrast. 100ML ml of Isovue 300 contrast was administered. Sagittal and coronal images were reconstructed. Individualized dose optimization techniques were used for this CT. COMPARISON: Comparison is made with prior study dated May 12, 2018. FINDINGS: Increased markings at the lung bases suggestive of atelectasis and/or early infiltrates. This has improved slightly since prior study. Coronary artery calcification. Normal liver. The patient is status post cholecystectomy. Normal spleen. Normal pancreas. Normal bilateral adrenal glands. Normal right kidney. Normal left kidney. Normal visualized stomach. Normal small intestine. There is diverticulosis, with thickening of the colon wall, and pericolonic inflammation changes consistent with acute diverticulitis. The appendix is visualized and appears normal. There is evidence of prior abdominal aortic aneurysm repair. Once again, a fat-containing density is seen along the lateral aspect of the aorta probably related to prior repair. This extends down into the left iliac region. Normal inferior vena cava. Normal retroperitoneum. Normal urinary bladder. There is a right-sided inguinal hernia containing adipose tissue. There are diffuse degenerative changes of the visualized lumbar spine. CT/Abdomen/Pelvis WITH Contrast IMPRESSION: Thickening of the sigmoid colon suggestive of a diverticulitis. Minimal increased markings in the surrounding peritoneal fat. Follow-up is recommended. Electronically Signed: Bertrand Steel MD at 15:00 EST Tel [phone], Service support ,
--- NOTE | 2018-05-26 12:53 | PN_ITS ---
Patient Problems: Active and Suspected Problems (Last Reviewed 05/05/18 @ 17:35 by RICA Rosenberg) Syncope and collapse (Acute) Change in mental status (Acute) Subjective: Patient is a 78-year-old gentleman with recent AAA repair who was transferred from the transitional care unit to the ED after he was found to be briefly unresponsive with some involuntary movement and stiffness involving the upper extremities. Workup in the ED was unremarkable there was a question of syncopal episode patient subsequently admitted to a monitored bed for further management. Further history from patient's family indicates patient has had recurrent episodes where he becomes momentarily unresponsive. He has had extensive workup including a 24-hour EEG while at [facility] which failed to demonstrate any local area of epileptiform activity. Objective: GENERAL: cooperative HEENT: Atraumatic; moist oral mucosa EYES; Anicteric, Normal Conjunctiva NECK; supple, normal thyroid, no distended JVD. RESPIRATORY: Diminished to auscultation bilaterally, CARDIOVASCULAR: Regular S1 S2, GI: soft, slightly tender in the left lower quadrant : No Renal angle tenderness; EXTREMITIES: No edema, no clubbing, no cyanosis. MUSCULOSKELETAL: No Joint Tenderness; NEURO: Awake; no lateralizing signs. SKIN: No Rash PSYCH; Normal affect Vitals/I&O's: Vital Signs Temp Pulse Resp BP Pulse Ox 97.8 F 88 18 146/89 H 97 05/26/18 10:00 05/26/18 10:00 05/26/18 10:00 05/26/18 10:00 05/26/18 10:00 Oxygen Flow Rate (L/min) 2 Oxygen Delivery Method Room Air Weight: 70.1 kg Body Mass Index (BMI) 22.1 Finger Stick Blood Glucose 104 Intake and Output for Last 24 Hours 05/24/18 05/25/18 05/26/18 23:59 23:59 23:59 Intake Total 500 / 500 813 / 813 Output Total 700 / 700 470 / 470 Balance -200 / -200 343 / 343 Microbiology Past 72 Hours 05/25/18 14:40 Urine Catheter - Catheter Urine Culture - Preliminary Culture exhibits no growth. Laboratory Results 05/25/18 14:10: WBC 6.0, RBC 3.19 L, Hgb 9.8 L, Hct 29.7 L, MCV 93.1, MCH 30.7, MCHC 33.0, RDW 15.0 H, RDW Differential 48.8 H, Plt Count 244, MPV 9.2, Immature Gran % (Auto) 0.200, Neut % (Auto) 57.9, Lymph % (Auto) 25.0, [place] % (Auto) 7.7, Eos % (Auto) 9.0 H, Baso % (Auto) 0.2, Absolute Neuts (auto) 3.5, Absolute Lymphs (auto) 1.50, Total Counted Not Reportable 05/25/18 14:10: Sodium 137, Potassium 4.6, Chloride 103, Carbon Dioxide 26.0, Anion Gap 8, BUN 33 H, Creatinine 1.26, Estim Creat Clear Calc 49.06, Est GFR (MDRD) Af Amer 71, Est GFR (MDRD) Non-Af 59 L, BUN/Creatinine Ratio 26.2 H, Glucose 109 H, Calcium 9.7, Troponin I < 0.015 05/25/18 14:10: B-Natriuretic Peptide 49.0 05/25/18 14:40: Urine Color Yellow, Urine Clarity Sl. Cloudy, Urine pH 7.0, Ur Specific [place] 1.010, Urine Protein Negative, Urine Glucose (UA) Normal, Urine Ketones Negative, Urine Occult Blood Negative, Urine Nitrite Negative, Urine Bilirubin Negative, Urine Urobilinogen Normal, Ur Leukocyte Esterase Negative, Urine RBC 0-5 SEEN, Urine WBC 0 SEEN, Ur Squamous Epith Cells 0-5 SEEN, Urine Bacteria 0 SEEN, Urine Mucus 0 SEEN 05/26/18 06:14: Sodium 138, Potassium 4.1, Chloride 105, Carbon Dioxide 24.0, Anion Gap 9, BUN 27 H, Creatinine 1.10, Estim Creat Clear Calc 54.88, Est GFR (MDRD) Af Amer 83, Est GFR (MDRD) Non-Af 69, BUN/Creatinine Ratio 24.5 H, Glu cose 89, Calcium 9.6 Current Medications Acetaminophen (Tylenol Liquid) 650 mg GT Q4H PRN PRN PRN Reason: PAIN Artificial Tears (Tears Naturale, Artificial Tears) 1 drop OPHTHALMIC Q4H PRN PRN PRN Reason: DRY EYES Aspirin (Aspirin, Baby) 81 mg GT DAILY@0800 COUNTS INCLUDE 234 BEDS AT THE [facility] Last Admin: 05/26/18 10:51 Dose: 81 mg Atorvastatin Calcium (Lipitor) 40 mg GT QHS COUNTS INCLUDE 234 BEDS AT THE [facility] Last Admin: 05/25/18 23:26 Dose: 40 mg Calamine/Phenol (Calmoseptine Ointment) 1 applic TOPICAL BID COUNTS INCLUDE 234 BEDS AT THE [facility]; Protocol Last Admin: 05/26/18 10:52 Dose: 1 applicatio Ferrous Sulfate (Ferrous Sulfate Syrup) 300 mg GT BID@1200,1700 COUNTS INCLUDE 234 BEDS AT THE [facility] Last Admin: 05/26/18 10:53 Dose: 300 mg Heparin Sodium (Porcine) (Heparin Na) 5,000 unit SC Q8 AMBIKA Last Admin: 05/26/18 06:17 Dose: 5,000 unit Sodium Chloride () 1,000 mls @ 100 mls/hr IV .Q10H AMBIKA Last Admin: 05/26/18 07:37 Dose: 100 mls/hr Lansoprazole (Prevacid) 30 mg GT DAILY COUNTS INCLUDE 234 BEDS AT THE [facility] Last Admin: 05/26/18 10:51 Dose: 30 mg Nystatin (Mycostatin Powder) 1 applic TOPICAL 0600,2200 COUNTS INCLUDE 234 BEDS AT THE [facility]; Protocol Last Admin: 05/26/18 06:11 Dose: 1 applicatio Sodium Chloride () 5 - 15 ml IV UD PRN PRN Reason: SALINE FLUSH Medical Necessity - Tobacco Use Smoking Status: Never smoker Tobacco Use: Non-smoker Assessment/Plan All Active Problems (Last Reviewed 05/05/18 @ 17:35 by Abimbola Morris NP-C) TIA (transient ischemic attack) (Resolved) Syncope and collapse (Acute) Change in mental status (Acute) Stroke-like symptoms (Resolved) Patient is a 78-year-old gentleman with recent AAA repair who was transferred from the transitional care unit to the ED after he was found to be briefly unresponsive with some involuntary movement and stiffness involving the upper extremities. Workup in the ED was unremarkable there was a question of syncopal episode patient subsequently admitted to a monitored bed for further management. Further history from patient's family indicates patient has had recurrent episodes where he becomes momentarily unresponsive. He has had extensive workup including a 24-hour EEG while at [facility] which failed to demonstrate any local area of epileptiform activity. 1. Transient altered mental status of undetermined etiology patient has been admitted to telemetry for continuous monitoring. Patient workup so far in the progressive care unit nondiagnostic. Consultation was placed to neurology. Of note patient had apparently undergone 24-hour EEG at [facility] with no seizure activity noted 2. 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 CAD with previous stent placement 5. Hypertension-blood pressure controlled, 6. Dyslipidemia-patient is on statin therapy, continued at home dose 7. GERD 8. Anemia secondary to anemia of chronic disorder 9. DVT prophylaxis SC heparin Active Medications Acetaminophen (Tylenol Liquid) 650 mg GT Q4H PRN PRN PRN Reason: PAIN Artificial Tears (Tears [place], Artificial Tears) 1 drop OPHTHALMIC Q4H PRN PRN PRN Reason: DRY EYES Aspirin (Aspirin, Baby) 81 mg GT DAILY@0800 COUNTS INCLUDE 234 BEDS AT THE [facility] Last Admin: 05/26/18 10:51 Dose: 81 mg Atorvastatin Calcium (Lipitor) 40 mg GT QHS COUNTS INCLUDE 234 BEDS AT THE [facility] Last Admin: 05/25/18 23:26 Dose: 40 mg Calamine/Phenol (Calmoseptine Ointment) 1 applic TOPICAL BID COUNTS INCLUDE 234 BEDS AT THE [facility]; Protocol Last Admin: 05/26/18 10:52 Dose: 1 applicatio Ferrous Sulfate (Ferrous Sulfate Syrup) 300 mg GT BID@1200,1700 COUNTS INCLUDE 234 BEDS AT THE [facility] Last Admin: 05/26/18 10:53 Dose: 300 mg Heparin Sodium (Porcine) (Heparin Na) 5,000 unit SC Q8 COUNTS INCLUDE 234 BEDS AT THE [facility] Last Admin: 05/26/18 06:17 Dose: 5,000 unit Sodium Chloride () 1,000 mls @ 100 mls/hr IV .Q10H COUNTS INCLUDE 234 BEDS AT THE [facility] Last Admin: 05/26/18 07:37 Dose: 100 mls/hr Lansoprazole (Prevacid) 30 mg GT DAILY COUNTS INCLUDE 234 BEDS AT THE [facility] Last Admin: 05/26/18 10:51 Dose: 30 mg Nystatin (Mycostatin Powder) 1 applic TOPICAL 0600,2200 COUNTS INCLUDE 234 BEDS AT THE [facility]; Protocol Last Admin: 05/26/18 06:11 Dose: 1 applicatio Sodium Chloride () 5 - 15 ml IV UD PRN PRN Reason: SALINE FLUSH Code Visit OBSV E&M: 11603 Subsequent observation care L3
--- NOTE | 2018-05-26 13:44 | PCM.CONS.GEN ---
Problem List (1) Unresponsive episode Status: Acute (2) Change in mental status Status: Acute Qualifiers: Altered mental status type: somnolence Qualified Code(s): R40.0 - Somnolence Reason for Consult Date of Consultation: 05/26/18 Reason for Consultation: Unresponsive episode History of Present Illness: The patient is a 78 M with PMH HTN, HLD, H/O TIA vs stroke aortic aneurysm rupture surgical repair January 2018, H/O anoxic brain injury, H/O Factor V laden mutation transferred from TCU with episode of unresponsiveness. History obtained from medical records, patient?s daughter and documentation. Per documentation he had episode of unresponsiveness yesterday (05/25/18) at TCU for which rapid response was called in, no witnessed seizure per documentation. Per daughter when he had aortic aneurysm rupture in January 2018 he was life flighted to [facility], needed chest compression, had anoxic brain injury and later he was at [facility] from January 11, 2018 to February 10 2018, was then transferred to [facility] following which he had about episodes of unresponsiveness, but no witnessed seizures, was transferred again to [facility], was found to have involuntary movements which were thought secondary to Reglan, later transferred to TCU at [facility] in March 2018, had episode of unresponsiveness late March was thought be secondary to feeding issues. Per daughter he recently had PEG dislodged and replaced, had vomiting yesterday (05/25/18), later got swallow study following which he was taken to TCU, where he had unresponsive episode where he was tense all over, later had another episode of unresponsive, became very diaphoretic, but there was no witnessed seizures, no tongue bite or urinary incontinence. Patient?s daughter feels he has these episodes with micturition, he started coming around to his baseline in the ED. Since his surgery he has been essentially bed bound, is intermittently being stood up by therapy in the TCU with assistance. At present he denies any TAYLOR, new onset vision deficits, speech disturbances, or sensory loss. Has possible myoclonic jerks post his anoxic brain injury and is ataxic. EEG done on 04/02/18- reported nothing epileptiform or electrographic seizures. MRI brain w/w/o contrast done on 05/05/18 reported to show nothing acute. Per documentation patient also had 24 hr EEG done at [facility] which did not show any seizure (record not available for me to review at present). Past Medical History Past Medical History (Chronic Problems): Chronic Problems (Last Reviewed 05/05/18 @ 17:35 by RICA Rosenberg) Malnutrition (Chronic) Anoxic encephalopathy (Chronic) Abdominal aortic aneurysm, ruptured (Chronic) 01/11/2018 Hyperlipidemia (Chronic) Iron deficiency anemia (Chronic) GERD (gastroesophageal reflux disease) (Chronic) Dysphagia (Chronic) Anemia (Chronic) Vasovagal syndrome (Chronic) Coronary artery disease (Chronic) Coronary artery disease (Chronic) Hypertension (Chronic) Medical History: Medical History (Last Reviewed 05/05/18 @ 17:35 by RICA Rosenberg) Abdominal aortic aneurysm, ruptured (Chronic) I71.3 01/11/2018 Cardiac arrest (Inactive) I46.9 Hyperlipidemia (Chronic) E78.5 Iron deficiency anemia (Chronic) D50.9 GERD (gastroesophageal reflux disease) (Chronic) K21.9 Dysphagia (Chronic) R13.10 Anemia (Chronic) D64.9 Vasovagal syndrome (Chronic) R55 Coronary artery disease (Chronic) I25.10 Coronary artery disease (Chronic) I25.10 Hypertension (Chronic) I10 Allergies famotidine [From Pepcid] Adverse Reaction (Verified 05/07/18 19:47) Low blood pressure metoclopramide [From Reglan] Adverse Reaction (Verified 05/07/18 19:47) Other Home Medications: Ambulatory Orders Medication Instructions Recorded Ferrous Sulfate Syrup 300 mg GT BID 03/28/18 Heparin Injection [(None)] 5,000 units SUBCUT BID 03/28/18 Lansoprazole [Prevacid] 30 mg GT DAILY 03/28/18 Acetaminophen Liquid [Tylenol 650 mg GT Q4H PRN PRN 05/05/18 Liquid] Menthol/Lanolin/Calamine/Znox 1 applic TOPICAL BID 05/05/18 [Calmoseptine Ointment] Nut.sup,Spec,Lac-Free,Iron/Fos 40 ml GT DAILY 05/05/18 [Twocal Hn Liquid] Polyvinyl Alcohol [Artificial 1 drop OP Q4H PRN PRN 05/05/18 Tears] Aspirin [Aspirin, Baby] 81 mg GT DAILY@0800 05/06/18 Atorvastatin Calcium [Lipitor] 40 mg GT QHS 05/06/18 Bisacodyl [Dulcolax] 10 mg RECTAL DAILY PRN suppos. 05/18/18 Ipratropium/Albuterol Sulfate 3 ml INHALATION Q6HWA.RT PRN 05/18/18 [Duoneb] ampul.neb Nystatin Powder [Mycostatin Powder] 1 applic TOPICAL 0600,2200 bottle 05/18/18 Polyethylene Glycol 3350 [Miralax] 17 gm PO DAILY packet 05/18/18 Senna/Docusate Sodium [Senokot-S] 2 tablet PO BID tablet 05/18/18 Sodium Chloride 0.65% [[place] Nasal 2 spray NASAL BID PRN PRN 05/18/18 [place]] spray.btl 0.9 % Sodium Chloride [Normal 5 - 15 ml IV UD PRN 05/25/18 Saline Flush] Fluticasone 0.05% [Flonase Nasal 1 spray NASAL BID 05/25/18 [place]] Surgical History: Surgical History (Last Reviewed 05/05/18 @ 17:35 by RICA Rosenberg) H/O abdominal aortic aneurysm repair Z98.890 7 surgeries related to this, also had a wound vac H/O heart artery stent Z95.5 H/O hernia repair Z98.890, Z87.19 Hx of cholecystectomy Z90.49 Left shoulder surgery 1998? 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 Psychiatric History: No pertinent psych hx Lives: Jail Smoking Status: Never smoker Tobacco Use: Non-smoker Alcohol: None Drugs: None - *Family History Paternal Family History: Family History (Last Reviewed 05/05/18 @ 17:35 by RICA Rosenberg) Sister Factor 5 Leiden mutation, heterozygous Aneurysm Sister Aneurysm History Items: - - No marked maternal or paternal family history reported including HD, DM, CA. Maternal Family History: Family History (Last Reviewed 05/05/18 @ 17:35 by DINESH RosenbergC) Sister Factor 5 Leiden mutation, heterozygous Aneurysm Sister Aneurysm History Items: - - No marked maternal or paternal family history reported including HD, DM, CA. Review of Systems Constitutional: Reports: - - complete ROS negtive except as documented in HPI Patient Problems: Active and Suspected Problems (Last Reviewed 05/05/18 @ 17:35 by Abimbola Morris, GILBERTO-Stephanie) Unresponsive episode (Acute) Syncope and collapse (Acute) Change in mental status (Acute) - Physical Exam General: - - awake, AoA x2 HEENT: Normocephalic Neck: Supple Lungs: Normal air movement Cardiovascular: Normal S1, Normal S2 Abdomen: Bowel Sounds Present, - - S/P PEG tube Extremities: No cyanosis Neurological: - - awake, CN 2-12 grossly intact, possible visual apraxia, power- moves both UE, 5/5 both UE, 1/5 both LE, denies any sensory loss, B/L UE ataxia, myoclonic jerks intermittently, Reflexes + B/L B/S/T/K/A, gait deferred. Vital Signs Temp Pulse Resp BP Pulse Ox 97.8 F 88 18 146/89 H 97 05/26/18 10:00 05/26/18 10:00 05/26/18 10:00 05/26/18 10:00 05/26/18 10:00 Oxygen Flow Rate (L/min) 2 Oxygen Delivery Method Room Air Weight: 70.1 kg Body Mass Index (BMI) 22.1 Finger Stick Blood Glucose 104 Intake and Output for Last 24 Hours 05/24/18 05/25/18 05/26/18 23:59 23:59 23:59 Intake Total 500 / 500 1984 Output Total 700 / 700 670 / 670 Balance -200 / -200 1315 / 1315 Microbiology Past 72 Hours 05/25/18 14:40 Urine Culture - Preliminary Urine Catheter - Catheter Culture exhibits no growth. Laboratory Tests Past 24 Hrs 05/25/18 05/25/18 05/25/18 14:10 14:10 14:10 WBC 6.0 RBC 3.19 L Hgb 9.8 L Hct 29.7 L MCV 93.1 MCH 30.7 MCHC 33.0 RDW 15.0 H RDW Differential 48.8 H Plt Count 244 MPV 9.2 Immature Gran % (Auto) 0.200 Neut % (Auto) 57.9 Lymph % (Auto) 25.0 [place] % (Auto) 7.7 Eos % (Auto) 9.0 H Baso % (Auto) 0.2 Absolute Neuts (auto) 3.5 Absolute Lymphs (auto) 1.50 Total Counted Not Reportable Sodium 137 Potassium 4.6 Chloride 103 Carbon Dioxide 26.0 Anion Gap 8 BUN 33 H Creatinine 1.26 Estim Creat Clear Calc 49.06 Est GFR (MDRD) Af Amer 71 Est GFR (MDRD) Non-Af 59 L BUN/Creatinine Ratio 26.2 H Glucose 109 H Calcium 9.7 Troponin I < 0.015 B-Natriuretic Peptide 49.0 Urine Color Urine Clarity Urine pH Ur Specific [place] Urine Protein Urine Glucose (UA) Urine Ketones Urine Occult Blood Urine Nitrite Urine Bilirubin Urine Urobilinogen Ur Leukocyte Esterase Urine RBC Urine WBC Ur Squamous Epith Cells Urine Bacteria Urine Mucus 05/25/18 05/26/18 14:40 06:14 WBC RBC Hgb Hct MCV MCH MCHC RDW RDW Differential Plt Count MPV Immature Gran % (Auto) Neut % (Auto) Lymph % (Auto) [place] % (Auto) Eos % (Auto) Baso % (Auto) Absolute Neuts (auto) Absolute Lymphs (auto) Total Counted Sodium 138 Potassium 4.1 Chloride 105 Carbon Dioxide 24.0 Anion Gap 9 BUN 27 H Creatinine 1.10 Estim Creat Clear Calc 54.88 Est GFR (MDRD) Af Amer 83 Est GFR (MDRD) Non-Af 69 BUN/Creatinine Ratio 24.5 H Glucose 89 Calcium 9.6 Troponin I B-Natriuretic Peptide Urine Color Yellow Urine Clarity Sl. Cloudy Urine pH 7.0 Ur Specific [place] 1.010 Urine Protein Negative Urine Glucose (UA) Normal Urine Ketones Negative Urine Occult Blood Negative Urine Nitrite Negative Urine Bilirubin Negative Urine Urobilinogen Normal Ur Leukocyte Esterase Negative Urine RBC 0-5 SEEN Urine WBC 0 SEEN Ur Squamous Epith Cells 0-5 SEEN Urine Bacteria 0 SEEN Urine Mucus 0 SEEN Assessment/Plan All Active Problems (Last Reviewed 05/05/18 @ 17:35 by Abimbola Morris, GILBERTO-C) Unresponsive episode (Acute) TIA (transient ischemic attack) (Resolved) Syncope and collapse (Acute) Change in mental status (Acute) Stroke-like symptoms (Resolved) The patient is a 78 M with PMH HTN, HLD, H/O TIA vs stroke aortic aneurysm rupture surgical repair January 2018, H/O anoxic brain injury, H/O Factor V laden mutation transferred from TCU with episode of unresponsiveness. History obtained from medical records, patient?s daughter and documentation. Per documentation he had episode of unresponsiveness yesterday (05/25/18) at TCU for which rapid response was called in, no witnessed seizure per documentation. Per daughter when he had aortic aneurysm rupture in January 2018 he was life flighted to [facility], needed chest compression, had anoxic brain injury and later he was at [facility] from January 11, 2018 to February 10 2018, was then transferred to [facility] following which he had about episodes of unresponsiveness, but no witnessed seizures, was transferred again to [facility], was found to have involuntary movements which were thought secondary to Reglan, later transferred to TCU at [facility] in March 2018, had episode of unresponsiveness late March was thought be secondary to feeding issues. Per daughter he recently had PEG dislodged and replaced, had vomiting yesterday (05/25/18), later got swallow study following which he was taken to TCU, where he had unresponsive episode where he was tense all over, later had another episode of unresponsive, became very diaphoretic, but there was no witnessed seizures, no tongue bite or urinary incontinence. Patient?s daughter feels he has these episodes with micturition, he started coming around to his baseline in the ED. Since his surgery he has been essentially bed bound, is intermittently being stood up by therapy in the TCU with assistance. At present he denies any TAYLOR, new onset vision deficits, speech disturbances, or sensory loss. Has possible myoclonic jerks post his anoxic brain injury and is ataxic. EEG done on 04/02/18- reported nothing epileptiform or electrographic seizures. MRI brain w/w/o contrast done on 05/05/18 reported to show nothing acute. Per documentation patient also had 24 hr EEG done at [facility] which did not show any seizure (record not available for me to review at present). Impression Unresponsive episodes- ? cause, vasovagal episode vs r/o cardiac etiology Unlikely to be seizures at present Plan -Check MRI brain w/o contrast, MRI C Spine and T spine w/o contrast to r/o spinal infarct -Repeat EEG -Cardiology consult -On ASA and Statins -Fall precautions -PT/OT -GI/DVT prophylaxis -Please call with questions if any -Thank you for allowing us to participate in patient's care and management. Code Visit Inpatient E&M: [id number] Init Hosp L3
--- NOTE | 2018-05-26 13:49 | CON.PCM_ITS ---
Problem List (1) Unresponsive episode Status: Acute (2) Change in mental status Status: Acute Qualifiers: Altered mental status type: somnolence Qualified Code(s): R40.0 - Somnolence Reason for Consult Date of Consultation: 05/26/18 Reason for Consultation: Unresponsive episode History of Present Illness: The patient is a 78 M with PMH HTN, HLD, H/O TIA vs stroke aortic aneurysm rupture surgical repair January 2018, H/O anoxic brain injury, H/O Factor V laden mutation transferred from TCU with episode of unresponsiveness. History obtained from medical records, patient?s daughter and documentation. Per documentation he had episode of unresponsiveness yesterday (05/25/18) at TCU for which rapid response was called in, no witnessed seizure per documentation. Per daughter when he had aortic aneurysm rupture in January 2018 he was life flighted to [facility], needed chest compression, had anoxic brain injury and later he was at [facility] from January 11, 2018 to February 10 2018, was then transferred to [facility] following which he had about episodes of unresponsiveness, but no witnessed seizures, was transferred again to [facility], was found to have involuntary movements which were thought secondary to Reglan, later transferred to TCU at [facility] in March 2018, had episode of unresponsiveness late March was thought be secondary to feeding issues. Per daughter he recently had PEG dislodged and replaced, had vomiting yesterday (05/25/18), later got swallow study following which he was taken to TCU, where he had unresponsive episode where he was tense all over, later had another episode of unresponsive, became very diaphoretic, but there was no witnessed seizures, no tongue bite or urinary incontinence. Patient?s daughter feels he has these episodes with micturition, he started coming around to his baseline in the ED. Since his surgery he has been essentially bed bound, is intermittently being stood up by therapy in the TCU with assistance. At present he denies any TAYLOR, new onset vision deficits, speech disturbances, or sensory loss. Has possible myoclonic jerks post his anoxic brain injury and is ataxic. EEG done on 04/02/18- reported nothing epileptiform or electrographic seizures. MRI brain w/w/o contrast done on 05/05/18 reported to show nothing acute. Per documentation patient also had 24 hr EEG done at [facility] which did not show any seizure (record not available for me to review at present). Past Medical History Past Medical History (Chronic Problems): Chronic Problems (Last Reviewed 05/05/18 @ 17:35 by RICA Rosenberg) Malnutrition (Chronic) Anoxic encephalopathy (Chronic) Abdominal aortic aneurysm, ruptured (Chronic) 01/11/2018 Hyperlipidemia (Chronic) Iron deficiency anemia (Chronic) GERD (gastroesophageal reflux disease) (Chronic) Dysphagia (Chronic) Anemia (Chronic) Vasovagal syndrome (Chronic) Coronary artery disease (Chronic) Coronary artery disease (Chronic) Hypertension (Chronic) Medical History: Medical History (Last Reviewed 05/05/18 @ 17:35 by RICA Rosenberg) Abdominal aortic aneurysm, ruptured (Chronic) I71.3 01/11/2018 Cardiac arrest (Inactive) I46.9 Hyperlipidemia (Chronic) E78.5 Iron deficiency anemia (Chronic) D50.9 GERD (gastroesophageal reflux disease) (Chronic) K21.9 Dysphagia (Chronic) R13.10 Anemia (Chronic) D64.9 Vasovagal syndrome (Chronic) R55 Coronary artery disease (Chronic) I25.10 Coronary artery disease (Chronic) I25.10 Hypertension (Chronic) I10 Allergies famotidine [From Pepcid] Adverse Reaction (Verified 05/07/18 19:47) Low blood pressure metoclopramide [From Reglan] Adverse Reaction (Verified 05/07/18 19:47) Other Home Medications: Ambulatory Orders Medication Instructions Recorded Ferrous Sulfate Syrup 300 mg GT BID 03/28/18 Heparin Injection [(None)] 5,000 units SUBCUT BID 03/28/18 Lansoprazole [Prevacid] 30 mg GT DAILY 03/28/18 Acetaminophen Liquid [Tylenol 650 mg GT Q4H PRN PRN 05/05/18 Liquid] Menthol/Lanolin/Calamine/Znox 1 applic TOPICAL BID 05/05/18 [Calmoseptine Ointment] Nut.sup,Spec,Lac-Free,Iron/Fos 40 ml GT DAILY 05/05/18 [Twocal Hn Liquid] Polyvinyl Alcohol [Artificial 1 drop OP Q4H PRN PRN 05/05/18 Tears] Aspirin [Aspirin, Baby] 81 mg GT DAILY@0800 05/06/18 Atorvastatin Calcium [Lipitor] 40 mg GT QHS 05/06/18 Bisacodyl [Dulcolax] 10 mg RECTAL DAILY PRN suppos. 05/18/18 Ipratropium/Albuterol Sulfate 3 ml INHALATION Q6HWA.RT PRN 05/18/18 [Duoneb] ampul.neb Nystatin Powder [Mycostatin Powder] 1 applic TOPICAL 0600,2200 bottle 05/18/18 Polyethylene Glycol 3350 [Miralax] 17 gm PO DAILY packet 05/18/18 Senna/Docusate Sodium [Senokot-S] 2 tablet PO BID tablet 05/18/18 Sodium Chloride 0.65% [[place] Nasal 2 spray NASAL BID PRN PRN 05/18/18 [place]] spray.btl 0.9 % Sodium Chloride [Normal 5 - 15 ml IV UD PRN 05/25/18 Saline Flush] Fluticasone 0.05% [Flonase Nasal 1 spray NASAL BID 05/25/18 [place]] Surgical History: Surgical History (Last Reviewed 05/05/18 @ 17:35 by RICA Rosenberg) H/O abdominal aortic aneurysm repair Z98.890 7 surgeries related to this, also had a wound vac H/O heart artery stent Z95.5 H/O hernia repair Z98.890, Z87.19 Hx of cholecystectomy Z90.49 Left shoulder surgery 1998? 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 Psychiatric History: No pertinent psych hx Lives: [facility] Smoking Status: Never smoker Tobacco Use: Non-smoker Alcohol: None Drugs: None - *Family History Paternal Family History: Family History (Last Reviewed 05/05/18 @ 17:35 by RICA Rosenberg) Sister Factor 5 Leiden mutation, heterozygous Aneurysm Sister Aneurysm History Items: - - No marked maternal or paternal family history reported including HD, DM, CA. Maternal Family History: Family History (Last Reviewed 05/05/18 @ 17:35 by DINESH RosenbergC) Sister Factor 5 Leiden mutation, heterozygous Aneurysm Sister Aneurysm History Items: - - No marked maternal or paternal family history reported including HD, DM, CA. Review of Systems Constitutional: Reports: - - complete ROS negtive except as documented in HPI Patient Problems: Active and Suspected Problems (Last Reviewed 05/05/18 @ 17:35 by Abimbola Morris, GILBERTO-Stephanie) Unresponsive episode (Acute) Syncope and collapse (Acute) Change in mental status (Acute) - Physical Exam General: - - awake, AoA x2 HEENT: Normocephalic Neck: Supple Lungs: Normal air movement Cardiovascular: Normal S1, Normal S2 Abdomen: Bowel Sounds Present, - - S/P PEG tube Extremities: No cyanosis Neurological: - - awake, CN 2-12 grossly intact, possible visual apraxia, power- moves both UE, 5/5 both UE, 1/5 both LE, denies any sensory loss, B/L UE ataxia, myoclonic jerks intermittently, Reflexes + B/L B/S/T/K/A, gait deferred. Vital Signs Temp Pulse Resp BP Pulse Ox 97.8 F 88 18 146/89 H 97 05/26/18 10:00 05/26/18 10:00 05/26/18 10:00 05/26/18 10:00 05/26/18 10:00 Oxygen Flow Rate (L/min) 2 Oxygen Delivery Method Room Air Weight: 70.1 kg Body Mass Index (BMI) 22.1 Finger Stick Blood Glucose 104 Intake and Output for Last 24 Hours 05/24/18 05/25/18 05/26/18 23:59 23:59 23:59 Intake Total 500 / 500 1984 Output Total 700 / 700 670 / 670 Balance -200 / -200 1315 / 1315 Microbiology Past 72 Hours 05/25/18 14:40 Urine Culture - Preliminary Urine Catheter - Catheter Culture exhibits no growth. Laboratory Tests Past 24 Hrs 05/25/18 05/25/18 05/25/18 14:10 14:10 14:10 WBC 6.0 RBC 3.19 L Hgb 9.8 L Hct 29.7 L MCV 93.1 MCH 30.7 MCHC 33.0 RDW 15.0 H RDW Differential 48.8 H Plt Count 244 MPV 9.2 Immature Gran % (Auto) 0.200 Neut % (Auto) 57.9 Lymph % (Auto) 25.0 [place] % (Auto) 7.7 Eos % (Auto) 9.0 H Baso % (Auto) 0.2 Absolute Neuts (auto) 3.5 Absolute Lymphs (auto) 1.50 Total Counted Not Reportable Sodium 137 Potassium 4.6 Chloride 103 Carbon Dioxide 26.0 Anion Gap 8 BUN 33 H Creatinine 1.26 Estim Creat Clear Calc 49.06 Est GFR (MDRD) Af Amer 71 Est GFR (MDRD) Non-Af 59 L BUN/Creatinine Ratio 26.2 H Glucose 109 H Calcium 9.7 Troponin I < 0.015 B-Natriuretic Peptide 49.0 Urine Color Urine Clarity Urine pH Ur Specific [place] Urine Protein Urine Glucose (UA) Urine Ketones Urine Occult Blood Urine Nitrite Urine Bilirubin Urine Urobilinogen Ur Leukocyte Esterase Urine RBC Urine WBC Ur Squamous Epith Cells Urine Bacteria Urine Mucus 05/25/18 05/26/18 14:40 06:14 WBC RBC Hgb Hct MCV MCH MCHC RDW RDW Differential Plt Count MPV Immature Gran % (Auto) Neut % (Auto) Lymph % (Auto) [place] % (Auto) Eos % (Auto) Baso % (Auto) Absolute Neuts (auto) Absolute Lymphs (auto) Total Counted Sodium 138 Potassium 4.1 Chloride 105 Carbon Dioxide 24.0 Anion Gap 9 BUN 27 H Creatinine 1.10 Estim Creat Clear Calc 54.88 Est GFR (MDRD) Af Amer 83 Est GFR (MDRD) Non-Af 69 BUN/Creatinine Ratio 24.5 H Glucose 89 Calcium 9.6 Troponin I B-Natriuretic Peptide Urine Color Yellow Urine Clarity Sl. Cloudy Urine pH 7.0 Ur Specific [place] 1.010 Urine Protein Negative Urine Glucose (UA) Normal Urine Ketones Negative Urine Occult Blood Negative Urine Nitrite Negative Urine Bilirubin Negative Urine Urobilinogen Normal Ur Leukocyte Esterase Negative Urine RBC 0-5 SEEN Urine WBC 0 SEEN Ur Squamous Epith Cells 0-5 SEEN Urine Bacteria 0 SEEN Urine Mucus 0 SEEN Assessment/Plan All Active Problems (Last Reviewed 05/05/18 @ 17:35 by Abimbola Morris, GILBERTO-C) Unresponsive episode (Acute) TIA (transient ischemic attack) (Resolved) Syncope and collapse (Acute) Change in mental status (Acute) Stroke-like symptoms (Resolved) The patient is a 78 M with PMH HTN, HLD, H/O TIA vs stroke aortic aneurysm rupture surgical repair January 2018, H/O anoxic brain injury, H/O Factor V laden mutation transferred from TCU with episode of unresponsiveness. History obtained from medical records, patient?s daughter and documentation. Per documentation he had episode of unresponsiveness yesterday (05/25/18) at TCU for which rapid response was called in, no witnessed seizure per documentation. Per daughter when he had aortic aneurysm rupture in January 2018 he was life flighted to [facility], needed chest compression, had anoxic brain injury and later he was at [facility] from January 11, 2018 to February 10 2018, was then transferred to [facility] following which he had about episodes of unresponsiveness, but no witnessed seizures, was transferred again to [facility], was found to have involuntary movements which were thought secondary to Reglan, later transferred to TCU at [facility] in March 2018, had episode of unresponsiveness late March was thought be secondary to feeding issues. Per daughter he recently had PEG dislodged and replaced, had vomiting yesterday (05/25/18), later got swallow study following which he was taken to TCU, where he had unresponsive episode where he was tense all over, later had another episode of unresponsive, became very diaphoretic, but there was no witnessed seizures, no tongue bite or urinary incontinence. Patient?s daughter feels he has these episodes with micturition, he started coming around to his baseline in the ED. Since his surgery he has been essentially bed bound, is intermittently being stood up by therapy in the TCU with assistance. At present he denies any TAYLOR, new onset vision deficits, speech disturbances, or sensory loss. Has possible myoclonic jerks post his anoxic brain injury and is ataxic. EEG done on 04/02/18- reported nothing epileptiform or electrographic seizures. MRI brain w/w/o contrast done on 05/05/18 reported to show nothing acute. Per documentation patient also had 24 hr EEG done at [facility] which did not show any seizure (record not available for me to review at present). Impression Unresponsive episodes- ? cause, vasovagal episode vs r/o cardiac etiology Unlikely to be seizures at present Plan -Check MRI brain w/o contrast, MRI C Spine and T spine w/o contrast to r/o spinal infarct -Repeat EEG -Cardiology consult -On ASA and Statins -Fall precautions -PT/OT -GI/DVT prophylaxis -Please call with questions if any -Thank you for allowing us to participate in patient's care and management. Code Visit Inpatient E&M: 22582 Init Hosp L3
--- NOTE | 2018-05-26 13:51 | MRI_ITS ---
STUDY: MRI CERVICAL SPINE WITHOUT CONTRAST REASON FOR EXAM: Male, 78 years old. Spinal infarct and episodes of unresponsiveness TECHNIQUE: Standardized fat and water weighted pulse sequences were obtained in the sagittal and axial planes. COMPARISON: None FINDINGS: Normal foramen magnum and brainstem-cervical cord junction. Normal craniovertebral junction. Normal anterior atlantoaxial articulation. Normal odontoid process. Normal cervical lordosis. Normal vertebral bodies and posterior osseous elements. C2-3: Normal endplates. Normal disc height, signal and morphology. Normal central canal and narrowed right intervertebral neural foramina. C3-4: Normal endplates. Normal disc height, signal and morphology. Normal central canal and narrowed right intervertebral neural foramina. Small posterior disc marginal osteophyte. C4-5: Normal endplates. Normal disc height, signal and morphology. Normal central canal and narrowed right intervertebral neural foramina. Small posterior disc marginal osteophyte. C5-6: Normal endplates. Normal disc height, signal and morphology. Normal central canal and intervertebral neural foramina. Small posterior disc marginal osteophyte. C6-7: Normal endplates. Normal disc height, signal and morphology. Normal central canal and intervertebral neural foramina. C7-T1: Normal endplates. Normal disc height, signal and morphology. Normal central canal and intervertebral neural foramina. Normal cervical cord. Normal visualized soft tissue structures. MRI/Spine Cervical (Routine) IMPRESSION: Spondylosis. No evidence of spinal cord infarction. Electronically Signed: Kong Bain MD at 23:19 EST , Service support ,
--- NOTE | 2018-05-26 13:51 | MRI_ITS ---
STUDY: MRI BRAIN WITHOUT CONTRAST REASON FOR EXAM: Male, 78 years old. Altered mental status. TECHNIQUE: Standardized multiplanar fat and water weighted pulse sequences were obtained. COMPARISON: 05/05/2018. CT brain 05/25/2018. FINDINGS: There is moderate cerebral atrophy with widening of the extra-axial spaces and ventricular dilatation. There are multiple white matter hyperintensities, distributed throughout the deep white matter tracts of the cerebral hemispheres, consistent with mild to moderate chronic white matter ischemic changes. Normal bilateral basal ganglia. Normal thalami. There is no extra-axial fluid accumulation. Normal flow voids within the major intracranial circulation suggesting patency by spin echo criteria. Normal sella turcica, pituitary gland, infundibular stalk, optic chiasm and hypothalamus. Normal tectal plate and pineal gland. Normal midbrain, angie and medulla. Normal cerebellum. Normal basal cisterns. Normal bilateral internal auditory canals. There is mild mucosal thickening in the left maxillary, left ethmoid, and right sphenoid sinuses consistent with chronic sinusitis. There is extensive fluid signal in the mastoid sinuses bilaterally, without significant change compared to the prior MRI. Fluid levels are identified again demonstrated on the right. Findings are concerning for inflammatory change No demonstrated orbital abnormality, within the constraints of a routine brain study. Normal calvarium and skull base. Normal visualized soft tissue structures. Normal visualized upper cervical spine. MRI/Brain without Contrast IMPRESSION: 1. Mild to moderate microvascular ischemic changes, stable compared to April 2018. 2. Abnormal signal in the mastoid sinuses with fluid levels on the right, suspicious for acute mastoiditis. 3. Mild chronic paranasal sinusitis. Electronically Signed: Afia Webb MD at 19:25 EST Tel , Service support ,
--- NOTE | 2018-05-26 13:51 | MRI_ITS ---
STUDY: MRI LUMBAR SPINE WITHOUT CONTRAST REASON FOR EXAM: Male, 78 years old. Unresponsive episodes. Spinal infarct. TECHNIQUE: Standardized fat and water weighted pulse sequences were obtained in the sagittal and axial planes. COMPARISON: None FINDINGS: T12-L1: Normal endplates. Normal disc height, hydration and morphology. Normal bilateral facet joints. Normal central canal and bilateral lateral recesses. Normal bilateral intervertebral neural foramina. Normal lumbar lordosis. There is no substantial scoliosis. Normal conus medullaris that terminates at the L1 level. L1-2: Normal endplates. Normal disc height, hydration and morphology. Normal bilateral facet joints. Normal central canal and bilateral lateral recesses. Narrowed right intervertebral neural foramina. L2-3: Modic type I changes.. Decreased disc height, hydration and morphology. Normal bilateral facet joints. Normal central canal and bilateral lateral recesses. Narrowed right intervertebral neural foramina. L3-4: Normal endplates. Normal disc height, hydration and morphology. Normal bilateral facet joints. Normal central canal and bilateral lateral recesses. Narrowed bilateral intervertebral neural foramina. L4-5: Mild trefoil type narrowing of the central and lateral spinal canal. Hypertrophic facet disease. L5-S1: Normal endplates. Normal disc height, hydration and morphology. Normal bilateral facet joints. Normal central canal and bilateral lateral recesses. Normal bilateral intervertebral neural foramina. Normal visualized sacral ala. aneurysmal sac and Aortic graft noted. MRI/Spine Lumbar (Routine) IMPRESSION: Degenerative disc disease and spondylosis. Aortic aneurysm and endovascular graft. No acute disease. Electronically Signed: Kong Bain MD at 23:53 EST , Service support ,
--- NOTE | 2018-05-26 14:02 | CASEMGMT ---
Patient is from [facility] TCU. He likely will not be d/c today. SW called Nicole in TCU and left her a voice mail letting her know this information. Plan: d/c back to [facility] TCU. Green sheet on chart with instructions Renetta LIU
--- NOTE | 2018-05-26 15:53 | CASEMGMT ---
Patient's family asked to talk with GLENNY (daughter Ruth). They asked about observation status and inpatient. They also asked if he will still have to leave TCU the . GLENNY spoke with RN NESSA and patient has been changed to inpatient as he is not being discharged today. GLENNY also spoke with Nicole who said the d/c set for the will be re-evaluated once he gets back to TCU. GLENNY let Ruth know this information. Plan: d/c back to TCU when ready. Renetta MENDEZ MSW
[2018-05-26] MEDS: Ciprofloxacin 400 MG/200 ML BAG 200 MG IV ×2 (16:16→23:06)
--- NOTE | 2018-05-26 16:16 | EEG ---
- Electroencephalogram Date of service 05/26/2018 History EEG is being done in this 78 yr M to rule out seizures EEG Description: This is an 18 channel EEG with 10-20 lead placement system. Bipolar montages, Referential and Circumferential montages were reviewed. Photic stimulation was performed but Hyperventilation was not performed. The posterior dominant rhythm is 7 HZ synchronous, symmetric, reacting to eye opening and closing. Photo stimulation elicited normal driving response but no abnormal photoparoxysmal response, Hyperventilation was not performed. Sleep was not identified. There is abnormal background slowing in the theta frequency range noted. There was no epileptiform discharges or electrographic seizures noted during this recording. Muscle artefact noted during the record EEG Interpretation This is an abnormal EEG due to mild generalized slowing. This can be seen in generalized cerebral dysfunction like metabolic/toxic encephalopathy. Clinical correlation is advised. There is no epileptiform discharges or electrographic seizures noted during the record.
--- NOTE | 2018-05-26 18:27 | NURSING ---
Reviewed and agreed on all charting with Zbigniew Mejia RN
[2018-05-26] MEDS: 0.9% NaCl Peripheral Flush Adult/Peds IV (20:12)
[2018-05-26] MEDS: Acetaminophen 650 MG/20 ML UDC GT (20:20)
[2018-05-26] MEDS: Atorvastatin Calcium 40 MG Tablet GT (22:40)
[2018-05-27] VITALS (7 sets, daily range): BP systolic 99–135; BP diastolic 61–73; PULSE 80–89; RESP 16; TEMP 36.3–36.8; O2SAT 94–100
[2018-05-27] MEDS: Heparin Injection (Vial) 5,000 UNIT/ML VIAL 5000 UNIT SC ×2 (05:03→14:11)
[2018-05-27] MEDS: Nystatin Powder 15gm Bottle 1 APPLIC TOPICAL (05:08)
[2018-05-27 06:27] LABS: Hematocrit 29.1 % (40-54); Hemoglobin 9.7 g/dl (13.0-16.5); Mean Corp Hgb Conc 33.3 g/gl (32-36); Mean Corpuscular Hgb 30.6 pg (27.0-32.0); Mean Corpuscular Volume 91.8 fL (80-94); Platelet Count 211 K/mm3 (150-450); RBC Distribution Width CV 14.6 % (11.6-14.6); RBC Distribution Width SD 48.1 fl (35.1-43.9); Red Blood Count 3.17 M/mm3 (4.6-6.2); White Blood Count 4.6 K/mm3 (4.4-11.0)
[2018-05-27 06:32] LABS: Scan Indicated on CBC? Y/N NO
[2018-05-27 06:48] LABS: Anion Gap 10 (5-15); BUN 23 mg/dL (7-18); BUN/Creat Ratio 18.3 RATIO (10-20); Calcium,Total 9.3 mg/dL (8.5-10.1); Chloride 104 mmol/L (98-107); Creatinine, Serum 1.26 mg/dL (0.70-1.30); EST Glomerular Filtration Rate 59 mL/min (>60); Est Glom Filt Rate - Afr Amer 71 mL/min (>60); Estimated Creatinine Clearance 47.91 ml/min; Glucose 82 mg/dL (74-106); Magnesium 2.1 mg/dL (1.6-2.6); Potassium 3.9 mmol/L (3.5-5.1); Sodium Level 139 mmol/L (136-145)
[2018-05-27] MEDS: Aspirin 81 MG TAB.CHEW GT (09:53)
--- NOTE | 2018-05-27 09:56 | TREXTCAR_ITS ---
- Diet 05/26/18 09:51 Diet: Regular Diet Food consistency:: Mechanical Soft/Ground Liquid Consistency:: Regular/Thin Dietary Modifications:: Mechanical Soft Diet Is pt able to select menu?: Yes Diet Comments: TOTAL FEED w/ HABEMATOLEL assist; upright @ 90, meds via PEG (family request) - Wound(s) Throat Wound Type: healing trach site ABD Wound Type: Scarring from surgery - Therapies Physical Therapy: Eval and Treat Occupational Therapy: Eval and Treat Speech Therapy: Eval and Treat - Allergies/Procedures Done in Hospital Allergies/Adverse Reactions: Allergies famotidine [From Pepcid] Adverse Reaction (Verified 05/07/18 19:47) Low blood pressure metoclopramide [From Reglan] Adverse Reaction (Verified 05/07/18 19:47) Other - Type of Care/Length of Stay Estimated LOS: Convalescent Care Less Than 30 days Type of Care Needed: Skilled Rehab Potential: Fair Prognosis: Fair - Additional Orders/Day of Discharge Day of Discharge: 05/27/18 - Dietary and Speech Recommendations Dietitian Recommendations/Changes: Rec resume TWO BRAXTON HN 12 hours/night at goal rate 40 cc/hr with 50 cc H2O flush every 4 hours to provide ~ 960 braxton / 40. gm pro / 636 cc free water per day. Will provide magic cup w/ Breakfast, CIB w/ magic cup milkshake at Lunch and mighty shake w/ dinner for increased braxton/pro if consumed. - Follow Up Care Primary Care Physician: Jack Olmedo MD [Primary Care Provider] - Please follow up with your Primary Care Physician in: in 1-2 weeks
--- NOTE | 2018-05-27 09:57 | DS.PCM_ITS ---
Discharge Date and Diagnosis - Problem List Patient Problems: Active and Suspected Problems (Last Reviewed 05/05/18 @ 17:35 by RICA Rosenberg) Unresponsive episode (Acute) Syncope and collapse (Acute) Change in mental status (Acute) Date of Admission: 05/25/18 Date of Discharge: 05/27/18 - Primary Discharge Diagnosis Active and Suspected Problems (Last Reviewed 05/05/18 @ 17:35 by RICA Rosenberg) Unresponsive episode (Acute) Syncope and collapse (Acute) Change in mental status (Acute) - Secondary Discharge Diagnosis Chronic Problems (Last Reviewed 05/05/18 @ 17:35 by RICA Rosenberg) Malnutrition (Chronic) Anoxic encephalopathy (Chronic) Abdominal aortic aneurysm, ruptured (Chronic) 01/11/2018 Hyperlipidemia (Chronic) Iron deficiency anemia (Chronic) GERD (gastroesophageal reflux disease) (Chronic) Dysphagia (Chronic) Anemia (Chronic) Vasovagal syndrome (Chronic) Coronary artery disease (Chronic) Coronary artery disease (Chronic) Hypertension (Chronic) Hospital Course and Treatment Imaging Results: Clinical Impression(s) from Imaging Studies Abdomen/Pelvis CT 05/26/18 11:16 IMPRESSION: Thickening of the sigmoid colon suggestive of a diverticulitis. Minimal increased markings in the surrounding peritoneal fat. Follow-up is recommended. Electronically Signed: Bertrand Steel MD at 15:00 EST Tel [phone], Service support , Brain MRI 05/26/18 13:51 IMPRESSION: 1. Mild to moderate microvascular ischemic changes, stable compared to April 2018. 2. Abnormal signal in the mastoid sinuses with fluid levels on the right, suspicious for acute mastoiditis. 3. Mild chronic paranasal sinusitis. Electronically Signed: Afia Webb MD at 19:25 EST Tel , Service support , Cervical Spine MRI 05/26/18 13:51 IMPRESSION: Spondylosis. No evidence of spinal cord infarction. Electronically Signed: Kong Bain MD at 23:19 EST , Service support , Lumbar Spine MRI 05/26/18 13:51 IMPRESSION: Degenerative disc disease and spondylosis. Aortic aneurysm and endovascular graft. No acute disease. Electronically Signed: Kong Bain MD at 23:53 EST , Service support , Operations: None Summary of Care Provided: Patient is a 78-year-old gentleman with recent AAA repair who was transferred from the transitional care unit to the ED after he was found to be briefly unresponsive with some involuntary movement and stiffness involving the upper extremities. Workup in the ED was unremarkable there was a question of syncopal episode patient subsequently admitted to a monitored bed for further management. Further history from patient's family indicates patient has had recurrent episodes where he becomes momentarily unresponsive. He has had extensive workup including a 24-hour EEG while at [facility] which failed to demonstrate any local area of epileptiform activity. 1. Suspected autonomic dysfunction: Patient presented with transient altered mental status of undetermined etiology patient has been admitted to telemetry for continuous monitoring. Patient workup so far in the progressive care unit nondiagnostic. Consultation was placed to neurology. Of note patient had apparently undergone 24-hour EEG at [facility] with no seizure activity noted. Patient was seen in consultation by Dr. Mcclendon with neurology his notes and recommendations reviewed. 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 2. Suspected diverticulitis patient was treated with Cipro and Flagyl 3. AAA status post repair at [facility] on 01/11/2018 4. CAD with previous stent placement 5. Hypertension-blood pressure controlled, 6. Dyslipidemia-patient is on statin therapy, continued at home dose 7. GERD 8. Anemia secondary to anemia of chronic disorder 9. History of factor V Leyden deficiency 10. DVT prophylaxis SC heparin Patient Problems: Active and Suspected Problems (Last Reviewed 05/05/18 @ 17:35 by Abimbola Morris NP-C) Unresponsive episode (Acute) Syncope and collapse (Acute) Change in mental status (Acute) - Physical Exam General: No apparent distress Neck: Supple Lungs: Diminished Cardiovascular: Regular rate, Regular Rhythm Abdomen: Non Tender, Non-Distended Vital Signs Temp Pulse Resp BP Pulse Ox 98.2 F 80 16 135/73 H 94 05/27/18 04:45 05/27/18 07:04 05/27/18 04:45 05/27/18 04:45 05/27/18 07:40 Oxygen Flow Rate (L/min) 2 Oxygen Delivery Method Room Air Weight: 70.1 kg Body Mass Index (BMI) 22.1 Finger Stick Blood Glucose 104 Intake and Output for Last 24 Hours 05/25/18 05/26/18 05/27/18 23:59 23:59 23:59 Intake Total 500 / 500 2792 / 2792 693 / 693 Output Total 700 / 700 1120 / 1120 225 / 225 Balance -200 / -200 1672 / 1672 468 / 468 Microbiology Past 72 Hours 05/25/18 14:40 Urine Culture - Preliminary Urine Catheter - Catheter Culture exhibits no growth. Laboratory Tests Past 24 Hrs 05/27/18 05/27/18 06:05 06:05 WBC 4.6 RBC 3.17 L Hgb 9.7 L Hct 29.1 L MCV 91.8 MCH 30.6 MCHC 33.3 RDW 14.6 RDW Differential 48.1 H Plt Count 211 MPV 9.0 Sodium 139 Potassium 3.9 Chloride 104 Carbon Dioxide 25.0 Anion Gap 10 BUN 23 H Creatinine 1.26 Estim Creat Clear Calc 47.91 Est GFR (MDRD) Af Amer 71 Est GFR (MDRD) Non-Af 59 L BUN/Creatinine Ratio 18.3 Glucose 82 Calcium 9.3 Magnesium 2.1 Home Medications: Medications to take at Discharge Ferrous Sulfate Syrup 300 mg GT BID 03/28/18 Heparin Injection [(None)] 5,000 units SUBCUT BID 03/28/18 Lansoprazole [Prevacid] 30 mg GT DAILY 03/28/18 Acetaminophen Liquid [Tylenol Liquid] 650 mg GT Q4H PRN PRN 05/05/18 Menthol/Lanolin/Calamine/Znox [Calmoseptine Ointment] 1 applic TOPICAL BID 05/05/18 Nut.sup,Spec,Lac-Free,Iron/Fos [Twocal Hn Liquid] 40 ml GT DAILY 05/05/18 Polyvinyl Alcohol [Artificial Tears] 1 drop OP Q4H PRN PRN 05/05/18 Aspirin [Aspirin, Baby] 81 mg GT DAILY@0800 05/06/18 Atorvastatin Calcium [Lipitor] 40 mg GT QHS 05/06/18 Bisacodyl [Dulcolax] 10 mg RECTAL DAILY PRN suppos. 05/18/18 Ipratropium/Albuterol Sulfate [Duoneb] 3 ml INHALATION Q6HWA.RT PRN ampul.neb 05/18/18 Nystatin Powder [Mycostatin Powder] 1 applic TOPICAL 0600,2200 bottle 05/18/18 Polyethylene Glycol 3350 [Miralax] 17 gm PO DAILY packet 05/18/18 Senna/Docusate Sodium [Senokot-S] 2 tablet PO BID tablet 05/18/18 Sodium Chloride 0.65% [Freeborn Nasal [place]] 2 spray NASAL BID PRN PRN spray.btl 05/18/18 0.9 % Sodium Chloride [Normal Saline Flush] 5 - 15 ml IV UD PRN 05/25/18 Fluticasone 0.05% [Flonase Nasal [place]] 1 spray NASAL BID 05/25/18 Ciprofloxacin [Cipro] 500 mg PO BID #10 tab 05/27/18 Lactobacillus Acidophilus [Acidophilus] 1 tablet PO BID #0 tablet 05/27/18 Metronidazole [Flagyl] 500 mg PO TID #15 tab 05/27/18 Following Prescrptions Were Given to Patient: Ciprofloxacin [Cipro] 500 mg PO BID #10 tab Metronidazole [Flagyl] 500 mg PO TID #15 tab Primary Care Physician: Jack Olmedo MD [Primary Care Provider] - Please follow up with your Primary Care Physician in: in 1-2 weeks Disposition: Long Term facility Minutes spent on discharge:: 35 Patient Condition:: Stable Medical Necessity - Tobacco Use Smoking Status: Never smoker Tobacco Use: Non-smoker Meaningful Use Info Meaningful Use Diagnoses (Choose all that apply): None applicable Code Visit Inpatient E&M: 52625 Disch Hosp
[2018-05-27] MEDS: Menthol/Lanolin/Calamine/Znox 113 GM Tube 1 APPLIC TOPICAL (10:09)
[2018-05-27] MEDS: Ciprofloxacin 400 MG/200 ML BAG 200 MG IV (10:10)
--- NOTE | 2018-05-27 11:39 | MRI_ITS ---
STUDY: MRI THORACIC SPINE WITHOUT CONTRAST REASON FOR EXAM: Male, 78 years old. Cord infarct. Episode of unresponsiveness. Mental status change. TECHNIQUE: Standardized fat and water weighted pulse sequences were obtained in the sagittal and axial planes. COMPARISON: None. FINDINGS: There is patient motion on all pulse sequences. Normal kyphosis of the thoracic spine. There is no substantial scoliosis. T1-2, T2-3, T3-4, T4-5, T5-6, T6-7, T7-8, T8-9, T9-10, T10-11, T11-12: Normal endplates. Normal disc hydration, heights and morphology of the corresponding intervertebral discs. Normal central canal and intervertebral neural foramina at the corresponding levels. Normal visualized thoracic cord. The soft tissue structures are unremarkable. MRI/Spine Thoracic (Routine) IMPRESSION: Normal unenhanced MRI examination of the thoracic spine. Electronically Signed: Afia Webb MD at 18:20 EST Tel , Service support ,
[2018-05-27] MEDS: 0.9% NaCl Peripheral Flush Adult/Peds IV (13:09)
--- NOTE | 2018-05-27 13:50 | NURSING ---
Nursing report called to JJ Delvalle on TCU. Aware that patient is coming with an IV per family request. Dr. Del Castillo aware and agreeable.
[2018-05-27] MEDS: Ferrous Sulfate 300 MG/5 ML UDC GT (14:11)
== END 2018-05-27 14:52 | disposition skilled nursing facility (03) | DRG 882 ==
LOC: ED 14:19 → PCU 16:24
PROVIDERS: Admitting Provider Internal Medicine; Emergency Provider Emergency Medicine; Family Provider Family Medicine; PCP Family Medicine; Visit Provider Internal Medicine
DX: F45.8 Other somatoform disorders (principal); E46 Unspecified protein-calorie malnutrition; D68.2 Hereditary deficiency of other clotting factors; Z93.1 Gastrostomy status; Z86.79 Personal history of other diseases of the circulatory system; R13.12 Dysphagia, oropharyngeal phase; I25.10 Atherosclerotic heart disease of native coronary artery without angina pectoris; Z95.5 Presence of coronary angioplasty implant and graft; K21.9 Gastro-esophageal reflux disease without esophagitis; E78.5 Hyperlipidemia, unspecified; D50.9 Iron deficiency anemia, unspecified; I10 Essential (primary) hypertension; Z68.22 Body mass index [BMI] 22.0-22.9, adult; D63.8 Anemia in other chronic diseases classified elsewhere; R41.82 Altered mental status, unspecified; R55 Syncope and collapse
CPT/HCPCS: 36415; 70450; 70551; 72141; 72146; 72148; 74177; 80048; 81001; 83735; 83880; 84484; 85025; 85027; 87086; 92526; 93005; 95819; 97802; 99285; J7030; J7040; Q9967; A4216; J0744

== ENCOUNTER 2018-05-27 15:35 | Inpatient (IN) | payer MEDICARE, SELFPAY ==
[2018-05-25 16:54] VITALS: BMI 22.1
[2018-05-27 16:01] VITALS: BP 122/71; PULSE 85; RESP 16; TEMP 36.9; O2SAT 95
--- NOTE | 2018-05-27 16:52 | NURSING ---
Patient admitted to room 17 from PCU via bed. Patient's family at bedside. Oriented to room and call light system explained.
--- NOTE | 2018-05-27 17:19 | PCM.HP.STD ---
Problem List (1) Anoxic encephalopathy Status: Chronic (2) Syncope and collapse Status: Acute (3) Change in mental status Status: Acute Qualifiers: (4) Abdominal aortic aneurysm, ruptured Status: Chronic Comment: 01/11/2018 (5) Hyperlipidemia Status: Chronic Qualifiers: (6) Iron deficiency anemia Status: Chronic Qualifiers: (7) GERD (gastroesophageal reflux disease) Status: Chronic Qualifiers: (8) Dysphagia Status: Chronic Qualifiers: (9) Anemia Status: Chronic Qualifiers: (10) Coronary artery disease Status: Chronic (11) Hypertension Status: Chronic Qualifiers: History of Present Illness Date of Admission: 05/27/18 Chief Complaint: Here for rehabilitation, strengthening, prior to discharge to group home care facility. The patient is a 78 year old Male with below past medical history presented to [facility] Emergency Department 05/25/2018 with change in consciousness while on TCU. 05/25/2018 CT brain chronic involutional changes of brain. 05/25/2018 Chest X-ray negative. Status post ruptured AAA repair, has recovered remarkably well, but has ongoing medical issues requiring medical intervention 2-3 times per week. Tense, unresponsive on TCU. Tense, facial grimacing in ED. 05/25/2018 Admit to Hospital. Hemoglobin 9.3, BUN 33, Glucose 109, UA okay, Troponin negative. EKG okay. 05/26/2018 CT abdomen/pelvis showed sigmoid diverticulitis, treat with Cipro, Flagyl. 05/26/2018 Dr. Mcclendon recommended MRI brain, MRI C spine, MRI L spine, EEG, PT/OT. 05/26/2018 MRI brain showed mild, moderate microvascular ischemic changes, right mastoiditis. 05/26/2018 MRI C spine spondylosis. 05/26/2018 MRI L spine disc disease, spondylosis, Aortic aneurysm, endovascular graft. 05/26/2018 EEG mild general slowing consistent with metabolic/toxic encephalopathy. Diverticulitis treated with Cipro, Flagyl. 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 05/27/2018 Admit to TCU with debility, here for rehabilitation, strengthening, prior to discharge to [facility] care facility. Past Medical History Past Medical History (Chronic Problems): Chronic Problems (Last Reviewed 05/05/18 @ 17:35 by Abimbola Morris NP-C) Malnutrition (Chronic) Anoxic encephalopathy (Chronic) Abdominal aortic aneurysm, ruptured (Chronic) 01/11/2018 Hyperlipidemia (Chronic) Iron deficiency anemia (Chronic) GERD (gastroesophageal reflux disease) (Chronic) Dysphagia (Chronic) Anemia (Chronic) Vasovagal syndrome (Chronic) Coronary artery disease (Chronic) Coronary artery disease (Chronic) Hypertension (Chronic) Medical History: Medical History (Last Reviewed 05/05/18 @ 17:35 by Abimbola Morris NP-C) Abdominal aortic aneurysm, ruptured (Chronic) I71.3 01/11/2018 Cardiac arrest (Inactive) I46.9 Hyperlipidemia (Chronic) E78.5 Iron deficiency anemia (Chronic) D50.9 GERD (gastroesophageal reflux disease) (Chronic) K21.9 Dysphagia (Chronic) R13.10 Anemia (Chronic) D64.9 Vasovagal syndrome (Chronic) R55 Coronary artery disease (Chronic) I25.10 Coronary artery disease (Chronic) I25.10 Hypertension (Chronic) I10 Allergies famotidine [From Pepcid] Adverse Reaction (Verified 05/07/18 19:47) Low blood pressure metoclopramide [From Reglan] Adverse Reaction (Verified 05/07/18 19:47) Other Home Medications: Ambulatory Orders Medication Instructions Recorded Ferrous Sulfate Syrup 300 mg GT BID 03/28/18 Heparin Injection [(None)] 5,000 units SUBCUT BID 03/28/18 Lansoprazole [Prevacid] 30 mg GT DAILY 03/28/18 Acetaminophen Liquid [Tylenol 650 mg GT Q4H PRN PRN 05/05/18 Liquid] Menthol/Lanolin/Calamine/Znox 1 applic TOPICAL BID 05/05/18 [Calmoseptine Ointment] Nut.sup,Spec,Lac-Free,Iron/Fos 40 ml GT DAILY 05/05/18 [Twocal Hn Liquid] Polyvinyl Alcohol [Artificial 1 drop OP Q4H PRN PRN 05/05/18 Tears] Aspirin [Aspirin, Baby] 81 mg GT DAILY@0800 05/06/18 Atorvastatin Calcium [Lipitor] 40 mg GT QHS 05/06/18 Bisacodyl [Dulcolax] 10 mg RECTAL DAILY PRN suppos. 05/18/18 Ipratropium/Albuterol Sulfate 3 ml INHALATION Q6HWA.RT PRN 05/18/18 [Duoneb] ampul.neb Sodium Chloride 0.65% [Black Nasal 2 spray NASAL BID PRN PRN 05/18/18 Belt] spray.btl 0.9 % Sodium Chloride [Normal 5 - 15 ml IV UD PRN 05/25/18 Saline Flush] Fluticasone 0.05% [Flonase Nasal 1 spray NASAL BID 05/25/18 Belt] Ciprofloxacin [Cipro] 500 mg GT BID 05/27/18 Lactobacillus Acidophilus 1 tablet GT BID 05/27/18 [Acidophilus] Metronidazole [Flagyl] 500 mg GT TID 05/27/18 Nystatin Powder [Mycostatin Powder] 1 applic TOPICAL 0600,2200 05/27/18 Polyethylene Glycol 3350 [Miralax] 17 gm PO DAILY 05/27/18 Senna/Docusate Sodium [Senokot-S] 2 tablet PO BID 05/27/18 Surgical History: Surgical History (Last Reviewed 05/05/18 @ 17:35 by Abimbola Morris NP-Stephanie) H/O abdominal aortic aneurysm repair Z98.890 7 surgeries related to this, also had a wound vac H/O heart artery stent Z95.5 H/O hernia repair Z98.890, Z87.19 Hx of cholecystectomy Z90.49 Left shoulder surgery 1998? 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 Psychiatric History: No pertinent psych hx Lives: Shelter Smoking Status: Never smoker Tobacco Use: Non-smoker Alcohol: None Drugs: None - *Family History Paternal Family History: Family History (Last Reviewed 05/05/18 @ 17:35 by Abimbola Morris NP-Stephanie) Sister Factor 5 Leiden mutation, heterozygous Aneurysm Sister Aneurysm History Items: - - No marked maternal or paternal family history reported including HD, DM, CA. Maternal Family History: Family History (Last Reviewed 05/05/18 @ 17:35 by Abimbola Morris NP-Stephanie) Sister Factor 5 Leiden mutation, heterozygous Aneurysm Sister Aneurysm History Items: - - No marked maternal or paternal family history reported including HD, DM, CA. Review of Systems Constitutional: Denies: Chills, Fever, Weight Change HEENT: Denies: Head Aches, Sinus Congestion, Sinus Drainage Cardiovascular: Denies: Chest Pain, Palpitations Respiratory: Denies: Cough, Shortness of breath at rest, Sputum production Gastrointestinal: Denies: Abdominal Pain, Nausea, Vomiting Genitourinary: Denies: Dysuria Musculoskeletal: Denies: Joint Pain, Joint Tenderness Skin: Denies: Rash, Wounds Neurological: Denies: Numbness, Tingling, Focal weakness Psychiatric: Denies: Anxiety, Depression, Homicidal Ideations, Suicidal Ideations Hematologic/ Lymphatic: Denies: Easy Bruising, Easy Bleeding VTE Information - Inpt Only VTE Present on Admission: No VTE Mechan Device Prophylaxis: Knee High SKYE Hose VTE Pharm Prophylaxis ordered?: Yes - Physical Exam General: Alert, Oriented x3, Cooperative HEENT: Atraumatic, PERRLA, EOMI, Normocephalic Neck: Supple, No JVD, Negative Carotid Bruits Lungs: Clear to auscultation, Normal air movement Cardiovascular: Regular rate, No murmurs Abdomen: Bowel Sounds Present, Soft, Non Tender, - - PEG tube. Extremities: No edema, Capillary Refill Less than 3 Seconds Skin: No rashes, No breakdown Musculoskeletal: No Tenderness to Palpation of Joints or Extremities Neurological: Cranial nerves II-XII grossly intact Psych/Mental Status: Normal Affect, Appropriate Vital Signs Temp Pulse Resp BP Pulse Ox 98.4 F 85 16 122/71 H 95 05/27/18 16:01 05/27/18 16:01 05/27/18 16:01 05/27/18 16:01 05/27/18 16:01 Oxygen Delivery Method Room Air Body Mass Index (BMI) 22.1 Finger Stick Blood Glucose 104 Assessment/Plan All Active Problems (Last Reviewed 05/05/18 @ 17:35 by Abimbola Morris NP-C) Unresponsive episode (Acute) TIA (transient ischemic attack) (Resolved) Syncope and collapse (Acute) Change in mental status (Acute) Stroke-like symptoms (Resolved) 78 year old male with below past medical history significant for recent ruptured AAA repair, hospitalized for acute change in mental status, complicated by sigmoid diverticulitis, encephalopathy, autonomic dysfunction, admitted to TCU with debility, here for rehabilitation, strengthening, prior to discharge to [facility] care facility. Debility - PT/OT. Dysphagia - ST. Pain - Tylenol 650MG Q4H PRN. Bowel - Miralax 17GM daily, Senna/colace 2 tablets BID, Dulcolax 10MG daily PRN. Pneumonia vaccination - Resident/family declined all vaccinations, I let them know influenza and/or pneumococcal illness will most likely end resident's life. DVT prophylaxis - Lovenox 40MG SC daily. Coronary Artery Disease - Aspirin 81MG daily. Hyperlipidemia - Atorvastatin 40MG QHS. Sigmoid diverticulitis - Cipro 500MG BID, Flagyl 500MG TID thru 06/01/2018. Iron deficiency anemia - Ferrous sulfate 300MG BID. Allergic Rhinitis - Flonase 1 spray BID. Shortness of breath - Duoneb 3ML Q6HWA. GI prophylaxis - Lactobacillus 1 tablet BID. GERD - Lansoprazole 30MG daily. Skin irritation - Calmoseptine BID buttocks. Nutrition - Twocal TF 40ML/hour at night. Tinea Corporis - Nystatin powder groin folds. Dry Eyes - Artificial Tears 1GTT Q4H PRN. Dry Nares - Black Nasal Belt 2 sprays BID PRN. Lung nodule - PET scan to evaluate for malignancy.
--- NOTE | 2018-05-27 17:27 | HP.PCM_ITS ---
Problem List (1) Anoxic encephalopathy Status: Chronic (2) Syncope and collapse Status: Acute (3) Change in mental status Status: Acute Qualifiers: (4) Abdominal aortic aneurysm, ruptured Status: Chronic Comment: 01/11/2018 (5) Hyperlipidemia Status: Chronic Qualifiers: (6) Iron deficiency anemia Status: Chronic Qualifiers: (7) GERD (gastroesophageal reflux disease) Status: Chronic Qualifiers: (8) Dysphagia Status: Chronic Qualifiers: (9) Anemia Status: Chronic Qualifiers: (10) Coronary artery disease Status: Chronic (11) Hypertension Status: Chronic Qualifiers: History of Present Illness Date of Admission: 05/27/18 Chief Complaint: Here for rehabilitation, strengthening, prior to [facility]. The patient is a 78 year old Male with below past medical history presented to [facility] Emergency Department 05/25/2018 with change in consciousness while on TCU. 05/25/2018 CT brain chronic involutional changes of brain. 05/25/2018 Chest X-ray negative. Status post ruptured AAA repair, has recovered remarkably well, but has ongoing medical issues requiring medical intervention 2-3 times per week. Tense, unresponsive on TCU. Tense, facial grimacing in ED. 05/25/2018 Admit to Hospital. Hemoglobin 9.3, BUN 33, Glucose 109, UA okay, Troponin negative. EKG okay. 05/26/2018 CT abdomen/pelvis showed sigmoid diverticulitis, treat with Cipro, Flagyl. 05/26/2018 Dr. Mcclendon recommended MRI brain, MRI C spine, MRI L spine, EEG, PT/OT. 05/26/2018 MRI brain showed mild, moderate microvascular ischemic changes, right mastoiditis. 05/26/2018 MRI C spine spondylosis. 05/26/2018 MRI L spine disc disease, spondylosis, Aortic aneurysm, endovascular graft. 05/26/2018 EEG mild general slowing consistent with metabolic/toxic encephalopathy. Diverticulitis treated with Cipro, Flagyl. 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 05/27/2018 Admit to TCU with debility, here for rehabilitation, strengthening, prior to discharge to planning supervisor care facility. Past Medical History Past Medical History (Chronic Problems): Chronic Problems (Last Reviewed 05/05/18 @ 17:35 by Abimbola Morris NP-C) Malnutrition (Chronic) Anoxic encephalopathy (Chronic) Abdominal aortic aneurysm, ruptured (Chronic) 01/11/2018 Hyperlipidemia (Chronic) Iron deficiency anemia (Chronic) GERD (gastroesophageal reflux disease) (Chronic) Dysphagia (Chronic) Anemia (Chronic) Vasovagal syndrome (Chronic) Coronary artery disease (Chronic) Coronary artery disease (Chronic) Hypertension (Chronic) Medical History: Medical History (Last Reviewed 05/05/18 @ 17:35 by Abimbola Morris NP-C) Abdominal aortic aneurysm, ruptured (Chronic) I71.3 01/11/2018 Cardiac arrest (Inactive) I46.9 Hyperlipidemia (Chronic) E78.5 Iron deficiency anemia (Chronic) D50.9 GERD (gastroesophageal reflux disease) (Chronic) K21.9 Dysphagia (Chronic) R13.10 Anemia (Chronic) D64.9 Vasovagal syndrome (Chronic) R55 Coronary artery disease (Chronic) I25.10 Coronary artery disease (Chronic) I25.10 Hypertension (Chronic) I10 Allergies famotidine [From Pepcid] Adverse Reaction (Verified 05/07/18 19:47) Low blood pressure metoclopramide [From Reglan] Adverse Reaction (Verified 05/07/18 19:47) Other Home Medications: Ambulatory Orders Medication Instructions Recorded Ferrous Sulfate Syrup 300 mg GT BID 03/28/18 Heparin Injection [(None)] 5,000 units SUBCUT BID 03/28/18 Lansoprazole [Prevacid] 30 mg GT DAILY 03/28/18 Acetaminophen Liquid [Tylenol 650 mg GT Q4H PRN PRN 05/05/18 Liquid] Menthol/Lanolin/Calamine/Znox 1 applic TOPICAL BID 05/05/18 [Calmoseptine Ointment] Nut.sup,Spec,Lac-Free,Iron/Fos 40 ml GT DAILY 05/05/18 [Twocal Hn Liquid] Polyvinyl Alcohol [Artificial 1 drop OP Q4H PRN PRN 05/05/18 Tears] Aspirin [Aspirin, Baby] 81 mg GT DAILY@0800 05/06/18 Atorvastatin Calcium [Lipitor] 40 mg GT QHS 05/06/18 Bisacodyl [Dulcolax] 10 mg RECTAL DAILY PRN suppos. 05/18/18 Ipratropium/Albuterol Sulfate 3 ml INHALATION Q6HWA.RT PRN 05/18/18 [Duoneb] ampul.neb Sodium Chloride 0.65% [Meeker Nasal 2 spray NASAL BID PRN PRN 05/18/18 [place]] spray.btl 0.9 % Sodium Chloride [Normal 5 - 15 ml IV UD PRN 05/25/18 Saline Flush] Fluticasone 0.05% [Flonase Nasal 1 spray NASAL BID 05/25/18 [place]] Ciprofloxacin [Cipro] 500 mg GT BID 05/27/18 Lactobacillus Acidophilus 1 tablet GT BID 05/27/18 [Acidophilus] Metronidazole [Flagyl] 500 mg GT TID 05/27/18 Nystatin Powder [Mycostatin Powder] 1 applic TOPICAL 0600,2200 05/27/18 Polyethylene Glycol 3350 [Miralax] 17 gm PO DAILY 05/27/18 Senna/Docusate Sodium [Senokot-S] 2 tablet PO BID 05/27/18 Surgical History: Surgical History (Last Reviewed 05/05/18 @ 17:35 by Abimbola Morris NP-Stephanie) H/O abdominal aortic aneurysm repair Z98.890 7 surgeries related to this, also had a wound vac H/O heart artery stent Z95.5 H/O hernia repair Z98.890, Z87.19 Hx of cholecystectomy Z90.49 Left shoulder surgery 1998? 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 Psychiatric History: No pertinent psych hx Lives: Alf Smoking Status: Never smoker Tobacco Use: Non-smoker Alcohol: None Drugs: None - *Family History Paternal Family History: Family History (Last Reviewed 05/05/18 @ 17:35 by Abimbola Morris NP-Stephanie) Sister Factor 5 Leiden mutation, heterozygous Aneurysm Sister Aneurysm History Items: - - No marked maternal or paternal family history reported including HD, DM, CA. Maternal Family History: Family History (Last Reviewed 05/05/18 @ 17:35 by Abimbola Morris NP-Stephanie) Sister Factor 5 Leiden mutation, heterozygous Aneurysm Sister Aneurysm History Items: - - No marked maternal or paternal family history reported including HD, DM, CA. Review of Systems Constitutional: Denies: Chills, Fever, Weight Change HEENT: Denies: Head Aches, Sinus Congestion, Sinus Drainage Cardiovascular: Denies: Chest Pain, Palpitations Respiratory: Denies: Cough, Shortness of breath at rest, Sputum production Gastrointestinal: Denies: Abdominal Pain, Nausea, Vomiting Genitourinary: Denies: Dysuria Musculoskeletal: Denies: Joint Pain, Joint Tenderness Skin: Denies: Rash, Wounds Neurological: Denies: Numbness, Tingling, Focal weakness Psychiatric: Denies: Anxiety, Depression, Homicidal Ideations, Suicidal Ideations Hematologic/ Lymphatic: Denies: Easy Bruising, Easy Bleeding VTE Information - Inpt Only VTE Present on Admission: No VTE Mechan Device Prophylaxis: Knee High SKYE Hose VTE Pharm Prophylaxis ordered?: Yes - Physical Exam General: Alert, Oriented x3, Cooperative HEENT: Atraumatic, PERRLA, EOMI, Normocephalic Neck: Supple, No JVD, Negative Carotid Bruits Lungs: Clear to auscultation, Normal air movement Cardiovascular: Regular rate, No murmurs Abdomen: Bowel Sounds Present, Soft, Non Tender, - - PEG tube. Extremities: No edema, Capillary Refill Less than 3 Seconds Skin: No rashes, No breakdown Musculoskeletal: No Tenderness to Palpation of Joints or Extremities Neurological: Cranial nerves II-XII grossly intact Psych/Mental Status: Normal Affect, Appropriate Vital Signs Temp Pulse Resp BP Pulse Ox 98.4 F 85 16 122/71 H 95 05/27/18 16:01 05/27/18 16:01 05/27/18 16:01 05/27/18 16:01 05/27/18 16:01 Oxygen Delivery Method Room Air Body Mass Index (BMI) 22.1 Finger Stick Blood Glucose 104 Assessment/Plan All Active Problems (Last Reviewed 05/05/18 @ 17:35 by Abimbola Morris NP-C) Unresponsive episode (Acute) TIA (transient ischemic attack) (Resolved) Syncope and collapse (Acute) Change in mental status (Acute) Stroke-like symptoms (Resolved) 78 year old male with below past medical history significant for recent ruptured AAA repair, hospitalized for acute change in mental status, complicated by sigmoid diverticulitis, encephalopathy, autonomic dysfunction, admitted to TCU with debility, here for rehabilitation, strengthening, prior to discharge to planning [facility] care facility. * Debility - PT/OT. * Dysphagia - ST. * Pain - Tylenol 650MG Q4H PRN. * Bowel - Miralax 17GM daily, Senna/colace 2 tablets BID, Dulcolax 10MG daily PRN. * Pneumonia vaccination - Resident/family declined all vaccinations, I let them know influenza and/or pneumococcal illness will most likely end resident's life. * DVT prophylaxis - Lovenox 40MG SC daily. * Coronary Artery Disease - Aspirin 81MG daily. * Hyperlipidemia - Atorvastatin 40MG QHS. * Sigmoid diverticulitis - Cipro 500MG BID, Flagyl 500MG TID thru 06/01/2018. * Iron deficiency anemia - Ferrous sulfate 300MG BID. * Allergic Rhinitis - Flonase 1 spray BID. * Shortness of breath - Duoneb 3ML Q6HWA. * GI prophylaxis - Lactobacillus 1 tablet BID. * GERD - Lansoprazole 30MG daily. * Skin irritation - Calmoseptine BID buttocks. * Nutrition - Twocal TF 40ML/hour at night. * Tinea Corporis - Nystatin powder groin folds. * Dry Eyes - Artificial Tears 1GTT Q4H PRN. * Dry Nares - Meeker Nasal [place] 2 sprays BID PRN. * Lung nodule - PET scan to evaluate for malignancy.
--- NOTE | 2018-05-27 18:07 | NURSING ---
NO for IV NS at 50mL/hr continously and BERNIE to PEG site daily.
[2018-05-27 18:11] VITALS: BMI 22.1
[2018-05-27 18:13] VITALS: BMI 22.2
[2018-05-27] MEDS: 0.9% Normal Saline 1,000 ML 50 ML IV (18:29)
--- NOTE | 2018-05-27 20:00 | NURSING ---
Addendum entered by Faye Gonzales 05/28/18 00:38: Pts twocal increased to 25ml/hr per family request. Original Note: Per pts son, he would like pts twocal to be ran at 20ml/hr since the pt has not ate much in the past couple days and would like to take it slow to see how he will handle it. Pts son would like the rate increased to 25ml/hr later tonight.
[2018-05-27] MEDS: metroNIDAZOLE 500 MG Tablet GT (20:25)
[2018-05-27] MEDS: Ciprofloxacin 500 MG Tablet GT (20:27)
[2018-05-27] MEDS: Senna/Docusate Sodium 1 Tablet 2 TABLET GT (20:27)
[2018-05-27] MEDS: Fluticasone 0.05% 1 SPRAY NASAL.SRY NASAL (20:28)
[2018-05-27] MEDS: Menthol/Lanolin/Calamine/Znox 113 GM Tube 1 APPLIC TOPICAL (20:55)
[2018-05-27] MEDS: Nystatin Powder 15gm Bottle 1 APPLIC TOPICAL (20:56)
[2018-05-27] MEDS: Atorvastatin Calcium 40 MG Tablet GT (22:37)
[2018-05-27] MEDS: Ferrous Sulfate 300 MG/5 ML UDC GT (22:38)
[2018-05-27] MEDS: Neomycin/Bacitracin/Polymyxin Ointment 1 APPLIC TOPICAL (22:56)
[2018-05-28] MEDS: metroNIDAZOLE 500 MG Tablet GT ×3 (06:21→22:01)
[2018-05-28] MEDS: Ferrous Sulfate 300 MG/5 ML UDC GT (06:21)
[2018-05-28] MEDS: Polyethylene Glycol 3350 17 GM PACKET GT (06:21)
[2018-05-28] MEDS: Menthol/Lanolin/Calamine/Znox 113 GM Tube 1 APPLIC TOPICAL ×2 (06:41→21:57)
[2018-05-28] MEDS: Nystatin Powder 15gm Bottle 1 APPLIC TOPICAL ×2 (06:41→22:02)
[2018-05-28 07:33] LABS: Anion Gap 8 (5-15); BUN 28 mg/dL (7-18); BUN/Creat Ratio 19.3 RATIO (10-20); Calcium,Total 9.1 mg/dL (8.5-10.1); Chloride 106 mmol/L (98-107); Creatinine, Serum 1.45 mg/dL (0.70-1.30); EST Glomerular Filtration Rate 50 mL/min (>60); Est Glom Filt Rate - Afr Amer 61 mL/min (>60); Estimated Creatinine Clearance 41.63 ml/min; Glucose 115 mg/dL (74-106); Potassium 3.7 mmol/L (3.5-5.1); Sodium Level 139 mmol/L (136-145)
[2018-05-28 07:35] LABS: Absolute Lymphocyte Count 1.42 X10^3/ul (0.83-4.51); Absolute Neutrophil Count 3.8 X10^3/uL (2.0-7.7); Basophil# 0.01 X10^3/uL; Basophil% 0.2 % (0-1); Eosinophil# 0.34 X10^3/uL; Eosinophils% 5.6 % (0-5); Hematocrit 28.3 % (40-54); Hemoglobin 9.4 g/dl (13.0-16.5); Lymphocyte # 1.42 X10^3/ul (4.0); Lymphocyte % 23.3 % (19-41); Mean Corp Hgb Conc 33.2 g/gl (32-36); Mean Corpuscular Volume 90.4 fL (80-94); Mean Platelet Vol. 8.7 fl (6.2-12.0); Monocyte# 0.48 X10^3/uL; Monocyte% 7.9 % (0-10); Neutrophil # 3.83 X10^3/uL (2.7-7.7); Neutrophil % 62.8 % (47-70); POSITIVE COUNT NO; POSITIVE DIFFERENTIAL NO; POSITIVE MORPHOLOGY NO; Platelet Count 199 K/mm3 (150-450); RBC Distribution Width CV 15.2 % (11.6-14.6); RBC Distribution Width SD 50.4 fl (35.1-43.9); Red Blood Count 3.13 M/mm3 (4.6-6.2); White Blood Count 6.1 K/mm3 (4.4-11.0)
[2018-05-28] MEDS: Fluticasone 0.05% 1 SPRAY NASAL.SRY NASAL ×2 (10:42→21:58)
[2018-05-28] MEDS: Senna/Docusate Sodium 1 Tablet 2 TABLET GT ×2 (10:43→21:57)
[2018-05-28] MEDS: Ciprofloxacin 500 MG Tablet GT ×2 (10:44→21:57)
[2018-05-28] MEDS: Enoxaparin 40 MG/0.4 ML Syringe SC (10:44)
[2018-05-28] MEDS: Aspirin 81 MG TAB.CHEW GT (10:44)
--- NOTE | 2018-05-28 11:16 | NURSING ---
Pt to have PET scan tomorrow at 0900 [facility]. NPO after midnight, may have sips of water.
[2018-05-28 15:26] VITALS: BP 113/57; PULSE 75; RESP 18; TEMP 36.6; O2SAT 99
[2018-05-28] MEDS: 0.9% Normal Saline 1,000 ML 50 ML IV (16:18)
[2018-05-28] MEDS: Neomycin/Bacitracin/Polymyxin Ointment 1 APPLIC TOPICAL (21:59)
[2018-05-28 22:00] VITALS: RESP 15
[2018-05-28] MEDS: Atorvastatin Calcium 40 MG Tablet GT (22:02)
[2018-05-29] MEDS: Menthol/Lanolin/Calamine/Znox 113 GM Tube 1 APPLIC TOPICAL ×2 (03:51→17:04)
[2018-05-29] MEDS: Nystatin Powder 15gm Bottle 1 APPLIC TOPICAL ×2 (03:52→22:23)
--- NOTE | 2018-05-29 08:18 | NURSING ---
pt off unit to PET scan, been NPO since midnight. Med list sent with pt, daughter at side. Unhooked IVF from LT upper arm IV site. saline locked at this time.
[2018-05-29] MEDS: Fluticasone 0.05% 1 SPRAY NASAL.SRY NASAL ×2 (11:38→17:04)
[2018-05-29] MEDS: metroNIDAZOLE 500 MG Tablet GT ×3 (11:38→22:07)
[2018-05-29] MEDS: Ciprofloxacin 500 MG Tablet GT ×2 (11:39→17:04)
[2018-05-29] MEDS: Enoxaparin 40 MG/0.4 ML Syringe SC (11:39)
[2018-05-29] MEDS: Polyethylene Glycol 3350 17 GM PACKET GT (11:40)
[2018-05-29] MEDS: Aspirin 81 MG TAB.CHEW GT (11:41)
[2018-05-29] MEDS: Senna/Docusate Sodium 1 Tablet 2 TABLET GT ×2 (11:41→17:04)
[2018-05-29] MEDS: Ferrous Sulfate 300 MG/5 ML UDC GT ×2 (11:42→22:07)
[2018-05-29] MEDS: Neomycin/Bacitracin/Polymyxin Ointment 1 APPLIC TOPICAL (11:43)
[2018-05-29] MEDS: 0.9% Normal Saline 1,000 ML 50 ML IV (15:03)
[2018-05-29 16:00] VITALS: BP 121/54; PULSE 83; RESP 18; TEMP 36.1; O2SAT 95
--- NOTE | 2018-05-29 19:51 | NURSING ---
Addendum entered by Faye Gonzales 05/30/18 03:22: Increased twocal to 40ml/hr per orders and family request. Original Note: Addendum entered by Faye Gonzales 05/29/18 22:27: Per family request, would like twocal at 35ml/hr at this time. Family would like to increase it to 40ml/hr later tonight. Original Note: Per family request, they would like twocal ran at 30ml/hr at this time.
[2018-05-29] MEDS: Atorvastatin Calcium 40 MG Tablet GT (22:07)
[2018-05-30] MEDS: Neomycin/Bacitracin/Polymyxin Ointment 1 APPLIC TOPICAL (05:53)
[2018-05-30] MEDS: Polyethylene Glycol 3350 17 GM PACKET GT (05:53)
[2018-05-30] MEDS: metroNIDAZOLE 500 MG Tablet GT ×3 (05:53→22:49)
[2018-05-30] MEDS: Senna/Docusate Sodium 1 Tablet 2 TABLET GT ×2 (05:53→17:55)
[2018-05-30] MEDS: Enoxaparin 40 MG/0.4 ML Syringe SC (05:53)
[2018-05-30] MEDS: Nystatin Powder 15gm Bottle 1 APPLIC TOPICAL ×2 (06:13→21:50)
[2018-05-30] MEDS: Menthol/Lanolin/Calamine/Znox 113 GM Tube 1 APPLIC TOPICAL ×2 (06:13→17:54)
[2018-05-30] MEDS: Ferrous Sulfate 300 MG/5 ML UDC GT ×2 (08:44→22:49)
[2018-05-30] MEDS: Aspirin 81 MG TAB.CHEW GT (08:44)
[2018-05-30] MEDS: Ciprofloxacin 500 MG Tablet GT ×2 (08:44→21:46)
[2018-05-30] MEDS: 0.9% Normal Saline 1,000 ML 50 ML IV (11:23)
[2018-05-30 15:26] VITALS: BP 135/63; PULSE 77; RESP 14; TEMP 37; O2SAT 97
[2018-05-30] MEDS: Fluticasone 0.05% 1 SPRAY NASAL.SRY NASAL (17:54)
--- NOTE | 2018-05-30 19:35 | NURSING ---
Pt assisted to dinning [place] by RESIDENCE LIFE COORDINATOR. RESIDENCE LIFE COORDINATOR reported 20+ family members present ranging from all ages. Daughter informed by this nurse good hygiene is encouraged and masks can be provided to family members. Pt's daughter declined masks at this time and informed this nurse that everyone has been told to wash hands and sanitize. Pt's daughter feels no one is a concern to pt at this time.
--- NOTE | 2018-05-30 21:07 | PCA ---
This COTTON BUYER, Joana Kwan, and Kaylene Lainez assisting patient with use of seralift from bed to chair. Patient strapped in properly and this aide and Joana Kwan assisting w/standing. Patient holding on to claim professional and feet and legs properly positioned. When the lift was risen, patient's legs lifted off the foot stand and into the air. Lift was stopped immediately and patient lowered to a sitting position. This aide attempted to hold feet in place while standing to help with positioning. Lifted up again w/assistance and feet gurwinder off the platform and shins bumped leg guard. Patient stated he needed to lay back down and was taken out of the lift and laid back in bed. Baisl RN, present at time of laying patient back down and was notified of small abrasions on patient's shins.
[2018-05-30] MEDS: Atorvastatin Calcium 40 MG Tablet GT (22:49)
[2018-05-31] MEDS: Nystatin Powder 15gm Bottle 1 APPLIC TOPICAL ×2 (06:07→21:33)
[2018-05-31] MEDS: Menthol/Lanolin/Calamine/Znox 113 GM Tube 1 APPLIC TOPICAL ×2 (06:08→17:28)
[2018-05-31] MEDS: metroNIDAZOLE 500 MG Tablet GT ×3 (06:08→21:33)
[2018-05-31] MEDS: Neomycin/Bacitracin/Polymyxin Ointment 1 APPLIC TOPICAL (06:09)
[2018-05-31] MEDS: Enoxaparin 40 MG/0.4 ML Syringe SC (06:10)
[2018-05-31] MEDS: Fluticasone 0.05% 1 SPRAY NASAL.SRY NASAL (06:10)
[2018-05-31] MEDS: 0.9% Normal Saline 1,000 ML 50 ML IV (06:32)
--- NOTE | 2018-05-31 10:14 | CASEMGMT ---
Plan of care meeting held. Resident present as well as resident family. Discharge date set for 06/09/18 and team is recommending for resident to transition to an extended care facility at time of discharge. Resident family agreeable to recommendation and discharge date at this time. This social work nurse to meet with resident and resident family further today to discuss discharge plan/facility choice. Resident to continue with further care and treatment until time of discharge. Support given. Transfer to extended care form initiated. Proposed discharge date: 06/09/18 PLAN: Discharge to extended care facility - probably skilled. Reji Saenz, SPRING FORMER, PATIENT ADMITTING CLERK
[2018-05-31] MEDS: Aspirin 81 MG TAB.CHEW GT (11:12)
[2018-05-31] MEDS: Ciprofloxacin 500 MG Tablet GT ×2 (11:12→21:33)
[2018-05-31] MEDS: Ferrous Sulfate 300 MG/5 ML UDC GT ×2 (11:12→19:45)
[2018-05-31 15:49] VITALS: BP 107/52; PULSE 88; RESP 20; TEMP 38.1; O2SAT 97
--- NOTE | 2018-05-31 16:59 | CASEMGMT ---
Social Work Met with resident and resident family in room to collaborate on discharge plan. Resident family reporting to want to visiting some facilities in the area prior to making decision on what facility. This social service agency director to follow up with resident and resident family on choices of facilities on Tuesday. Resident family deciding that they are unable to meet resident needs within the home, the team is recommending placement. Resident family all agreeable to discharge date and plan. This socia worker to continue to follow. Proposed discharge date: 06/09/18 PLAN: Discharge to an extended care facility - skilled. Reji Saenz, COMPLIANCE PROGRAM MANAGER, SUPERVISOR CARTOGRAPHY
--- NOTE | 2018-05-31 20:41 | TREXTCAR_ITS ---
- Diet 05/27/18 17:13 Diet: Regular Diet Liquid Consistency:: Regular/Thin Dietary Modifications:: Mechanical Soft Diet Diet Comments: magic cup with bfast, CIB w/magic cup milkshake for lunch, mighty shake din - Routine Orders/Code Status Suppository Type: Dulcolax 10mg Suppository Frequency: Daily PRN Routine Lab Work: CBC, BMP Code Status: Full Code - Wound(s) Old trach site Wound Type: old trach site Dressing Change: Dry Sterile Dressing PEG site Wound Type: peg site Dressing Change: Dry Sterile Dressing Right miranda Wound Type: Skin Tear - Therapies Weight Bearing: Weight bearing as tolerated Extremity Affected:: Bilateral Lower Physical Therapy: Eval and Treat Occupational Therapy: Eval and Treat Speech Therapy: Eval and Treat - Problem/Diagnosis (1) Anoxic encephalopathy Status: Chronic Current Visit: No (2) Syncope and collapse Status: Acute Current Visit: No (3) Change in mental status Status: Acute Current Visit: No (4) Abdominal aortic aneurysm, ruptured Status: Chronic Comment: 01/11/2018 Current Visit: No (5) Hyperlipidemia Status: Chronic Current Visit: No (6) Iron deficiency anemia Status: Chronic Current Visit: No (7) GERD (gastroesophageal reflux disease) Status: Chronic Current Visit: No (8) Dysphagia Status: Chronic Current Visit: No (9) Anemia Status: Chronic Current Visit: No (10) Coronary artery disease Status: Chronic Current Visit: No (11) Hypertension Status: Chronic Current Visit: No - Allergies/Procedures Done in Hospital Allergies/Adverse Reactions: Allergies famotidine [From Pepcid] Adverse Reaction (Verified 05/07/18 19:47) Low blood pressure metoclopramide [From Reglan] Adverse Reaction (Verified 05/07/18 19:47) Other - Type of Care/Length of Stay Estimated LOS: More Than 30 Days Type of Care Needed: Skilled Rehab Potential: Fair Prognosis: Fair - Additional Orders/Day of Discharge Day of Discharge: 06/09/18 - Dietary and Speech Recommendations Dietitian Recommendations/Changes: In view of Res wt loss, rec increase TF to continuous Two [place] HN at goal rate 40 cc/hr with 50 cc H2O flush every 4 hours to better help meet pt nutritional needs. Continue regular diet- consistency per MECHANICAL MAINTENANCE ENGINEER. - Follow Up Care Primary Care Physician: Jack Olmedo MD [Primary Care Provider] - Please follow up with your Primary Care Physician in: 1 week.
--- NOTE | 2018-05-31 20:41 | PCM.DC.SUM ---
Discharge Date and Diagnosis Date of Admission: 05/27/18 Date of Discharge: 06/09/18 - Secondary Discharge Diagnosis Chronic Problems (Last Reviewed 05/05/18 @ 17:35 by Abimbola Morris NP-C) Malnutrition (Chronic) Anoxic encephalopathy (Chronic) Abdominal aortic aneurysm, ruptured (Chronic) 01/11/2018 Hyperlipidemia (Chronic) Iron deficiency anemia (Chronic) GERD (gastroesophageal reflux disease) (Chronic) Dysphagia (Chronic) Anemia (Chronic) Vasovagal syndrome (Chronic) Coronary artery disease (Chronic) Coronary artery disease (Chronic) Hypertension (Chronic) Hospital Course and Treatment Imaging Results: 05/27/18 17:13 Diet: Regular Diet Liquid Consistency:: Regular/Thin Dietary Modifications:: Mechanical Soft Diet Diet Comments: magic cup with bfast, CIB w/magic cup milkshake for lunch, mighty shake din Operations: None Procedures: None Summary of Care Provided: The patient is a 78 year old Male with below past medical history significant for recent ruptured AAA repair, hospitalized for acute change in mental status, complicated by sigmoid diverticulitis, encephalopathy, autonomic dysfunction, admitted to TCU with debility, here for rehabilitation, strengthening, prior to discharge to half-way care facility. Resident has been in healthcare system since 01/2018. Family highly involved with his care. Discharge to Extended Care Facility Skilled. - Physical Exam Vital Signs Temp Pulse Resp BP Pulse Ox 100.6 F H 88 20 H 107/52 L 97 05/31/18 15:49 05/31/18 15:49 05/31/18 15:49 05/31/18 15:49 05/31/18 15:49 Oxygen Delivery Method Room Air Weight: 70.1 kg Body Mass Index (BMI) 22.1 Finger Stick Blood Glucose 104 Intake and Output for Last 24 Hours 05/29/18 05/30/18 05/31/18 23:59 23:59 23:59 Intake Total 1709 / 1709 2251 / 2251 2191 / 2191 Output Total 425 / 425 450 / 450 Balance 1284 / 1284 2251 / 2251 1741 / 1741 Discharge Diet: - - Mechanical soft diet, Regular diet. Discharge Activity: Use Walker Weight Bearing Status: Weight bearing as tolerated Call your doctor if you observe: Fever of 101 or Higher, Inability to urinate, Inability to have a bowel movement, Shortness of breath, Chest pain, Uncontrolled pain Home Medications: Medications to take at Discharge Ferrous Sulfate Syrup 300 mg GT BID 03/28/18 Lansoprazole [Prevacid] 30 mg GT DAILY 03/28/18 Acetaminophen Liquid [Tylenol Liquid] 650 mg GT Q4H PRN PRN 05/05/18 Menthol/Lanolin/Calamine/Znox [Calmoseptine Ointment] 1 applic TOPICAL BID 05/05/18 Nut.sup,Spec,Lac-Free,Iron/Fos [Twocal Hn Liquid] 40 ml GT DAILY 05/05/18 Polyvinyl Alcohol [Artificial Tears] 1 drop OP Q4H PRN PRN 05/05/18 Aspirin [Aspirin, Baby] 81 mg GT DAILY@0800 05/06/18 Atorvastatin Calcium [Lipitor] 40 mg GT QHS 05/06/18 Bisacodyl [Dulcolax] 10 mg RECTAL DAILY PRN suppos. 05/18/18 Ipratropium/Albuterol Sulfate [Duoneb] 3 ml INHALATION Q6HWA.RT PRN ampul.neb 05/18/18 Sodium Chloride 0.65% [[place] Nasal [place]] 2 spray NASAL BID PRN PRN spray.btl 05/18/18 Fluticasone 0.05% [Flonase Nasal [place]] 1 spray NASAL BID 05/25/18 Lactobacillus Acidophilus [Acidophilus] 1 tablet GT BID 05/27/18 Nystatin Powder [Mycostatin Powder] 1 applic TOPICAL 0600,2200 05/27/18 Polyethylene Glycol 3350 [Miralax] 17 gm PO DAILY 05/27/18 Senna/Docusate Sodium [Senokot-S] 2 tablet PO BID 05/27/18 Neomycin/Bacitracin/Polymyxin [Neosporin Ointment] 1 applic TOPICAL DAILY tube 05/31/18 Primary Care Physician: Jack Olmedo MD [Primary Care Provider] - Please follow up with your Primary Care Physician in: 1 week. Disposition: Assisted facility Minutes spent on discharge:: 35 Patient Condition:: Stable Medical Necessity - Tobacco Use Smoking Status: Never smoker Tobacco Use: Non-smoker Meaningful Use Info Meaningful Use Diagnoses (Choose all that apply): None applicable
[2018-05-31] MEDS: Atorvastatin Calcium 40 MG Tablet GT (21:33)
[2018-06-01] MEDS: 0.9% Normal Saline 1,000 ML 50 ML IV ×2 (02:00→21:43)
[2018-06-01] MEDS: Nystatin Powder 15gm Bottle 1 APPLIC TOPICAL ×2 (04:58→20:30)
[2018-06-01] MEDS: Enoxaparin 40 MG/0.4 ML Syringe SC (04:58)
[2018-06-01] MEDS: Menthol/Lanolin/Calamine/Znox 113 GM Tube 1 APPLIC TOPICAL ×2 (04:58→17:43)
[2018-06-01] MEDS: Senna/Docusate Sodium 1 Tablet 2 TABLET GT ×2 (05:00→17:44)
[2018-06-01] MEDS: Polyethylene Glycol 3350 17 GM PACKET GT (05:00)
[2018-06-01] MEDS: metroNIDAZOLE 500 MG Tablet GT ×2 (05:00→13:12)
[2018-06-01] MEDS: Neomycin/Bacitracin/Polymyxin Ointment 1 APPLIC TOPICAL (05:03)
[2018-06-01] MEDS: Ferrous Sulfate 300 MG/5 ML UDC GT ×2 (09:17→17:44)
[2018-06-01] MEDS: Aspirin 81 MG TAB.CHEW GT (09:17)
[2018-06-01] MEDS: Ciprofloxacin 500 MG Tablet GT (11:25)
--- NOTE | 2018-06-01 13:05 | PHA.CONS_ITS ---
<Rick Zuniga D - Last Filed: 06/01/18 12:50> Progress Note - Pharmacy Subjective: TCU Admission Objective: Allergies famotidine [From Pepcid] Adverse Reaction (Verified 05/07/18 19:47) Low blood pressure metoclopramide [From Reglan] Adverse Reaction (Verified 05/07/18 19:47) Other Current Medications Generic Name Dose Route Start Last Admin Trade Name Freq PRN Reason Stop Dose Admin Acetaminophen 650 mg 05/27/18 17:07 Tylenol Liquid GT Q4H PRN PRN PAIN Albuterol/Ipratropium 3 ml 05/27/18 17:07 Duoneb INHALATION Q6HWA.RT PRN SHORTNESS OF BREATH Artificial Tears 1 drop 05/27/18 17:07 Tears Naturale, Artificial Tears OPHTHALMIC Q4H PRN PRN NOT SPECIFIED Aspirin 81 mg 05/28/18 08:00 06/01/18 09:17 Aspirin, Baby GT 81 mg DAILY@0800 AMBIKA Administration Atorvastatin Calcium 40 mg 05/27/18 22:00 05/31/18 21:33 Lipitor GT 40 mg QHS AMBIKA Administration Bisacodyl 10 mg 05/27/18 17:07 Dulcolax RECTAL DAILY PRN Constipation Calamine/Phenol 1 applic 05/27/18 18:00 06/01/18 04:58 Calmoseptine Ointment TOPICAL 1 applicatio BID AMBIKA Administration Protocol Enoxaparin Sodium 40 mg 05/28/18 06:00 06/01/18 04:58 Lovenox SC 40 mg DAILY@0600 AMBIKA Administration Ferrous Sulfate 300 mg 06/01/18 08:00 06/01/18 09:17 Ferrous Sulfate Syrup GT 300 mg BIDCM AMBIKA Administration Fluticasone Propionate 1 spray 05/27/18 18:00 06/01/18 05:03 Flonase Nasal [place] NASAL Not Given BID [facility] Sodium Chloride 1,000 mls @ 50 mls/hr 05/27/18 18:05 06/01/18 02:00 IV 50 mls/hr .Q20H AMBIKA Administration NUT.SUP,SPEC,LAC-FREE,IRON/FOS 1,000 mls @ 40 mls/hr 05/27/18 20:00 05/31/18 21:40 Twocal Hn Liquid GT 40 mls/hr .Q25H AMBIKA Administration Lactobacillus Acidophilus 1 tablet 05/27/18 18:00 06/01/18 05:00 Acidophilus GT 1 tablet BID AMBIKA Administration Lansoprazole 30 mg 05/28/18 06:00 06/01/18 05:00 Prevacid GT 30 mg DAILY AMBIKA Administration Metronidazole 500 mg 05/27/18 22:00 06/01/18 05:00 Flagyl GT 06/01/18 14:01 500 mg TID AMBIKA Administration Neomycin/Polymyxin/Bacitracin 1 applic 05/28/18 20:00 06/01/18 05:03 Neosporin TOPICAL 1 applicatio DAILY AMBIKA Administration Protocol Nystatin 1 applic 05/27/18 22:00 06/01/18 04:58 Mycostatin Powder TOPICAL 1 applicatio 0600,2200 AMBIKA Administration Protocol Polyethylene Glycol 17 gm 05/28/18 06:00 06/01/18 05:00 Miralax GT 17 gm DAILY AMBIKA Administration Senna/Docusate Sodium 2 tablet 05/27/18 18:00 06/01/18 05:00 Senokot-S, Oly-Colace GT 2 tablet BID AMBIKA Administration Sodium Chloride 2 spray 05/27/18 17:07 [place] Nasal [place] NASAL BID PRN PRN NASAL DRYNESS Sodium Chloride 5 - 15 ml 05/27/18 17:40 IV UD PRN SALINE FLUSH Vital Signs Temp Pulse Resp BP Pulse Ox 100.6 F H 88 20 H 107/52 L 97 05/31/18 15:49 05/31/18 15:49 05/31/18 15:49 05/31/18 15:49 05/31/18 15:49 Oxygen Delivery Method Room Air Weight: 70.1 kg Body Mass Index (BMI) 22.1 Finger Stick Blood Glucose 104 Sodium 139 mmol/L (136-145) 05/28/18 06:52 Potassium 3.7 mmol/L (3.5-5.1) 05/28/18 06:52 Chloride 106 mmol/L (98-107) 05/28/18 06:52 Carbon Dioxide 25.0 mmol/L (21.0-32.0) 05/28/18 06:52 Anion Gap 8 (5-15) 05/28/18 06:52 BUN 28 mg/dL (7-18) H 05/28/18 06:52 Creatinine 1.45 mg/dL (0.70-1.30) H 05/28/18 06:52 Est GFR (MDRD) Af Amer 61 mL/min (>60) 05/28/18 06:52 Est GFR (MDRD) Non-Af 50 mL/min (>60) L 05/28/18 06:52 BUN/Creatinine Ratio 19.3 RATIO (10-20) 05/28/18 06:52 Glucose 115 mg/dL (74-106) H 05/28/18 06:52 Assessment/Plan: 1) Pain APAP for pain. Continue to monitor prn medication use, daily pain scores. 2) ID Ciprofloxacin, metronidazole thru 06/01. Continue to monitor s/s infection. 3) CAD ASA, atorvastatin. Continue to monitor for chest pain, shortness of breath. 4) GI Lansoprazole, lactobacillus. Continue to monitor s/s GI distress. 5) DVT PPx Enoxaparin daily. Continue to monitor for bleeding/clot. Psychotropic Medications: None Unnecessary Medications: None Bowel Regimen: 6) Senna/s, PEG, prn bisacodyl. Continue to monitor prn medication use, for constipation/diarrhea. Date of Note:: 06/01/18 - Provider Comments Provider responsibility: Provider responsible to enter orders to implement recommendations <Jh Gustafson Chi - Last Filed: 06/01/18 17:38> Progress Note - Pharmacy Subjective: [] Objective: Allergies famotidine [From Pepcid] Adverse Reaction (Verified 05/07/18 19:47) Low blood pressure metoclopramide [From Reglan] Adverse Reaction (Verified 05/07/18 19:47) Other Current Medications Generic Name Dose Route Start Last Admin Trade Name Freq PRN Reason Stop Dose Admin Acetaminophen 650 mg 05/27/18 17:07 Tylenol Liquid GT Q4H PRN PRN PAIN Albuterol/Ipratropium 3 ml 05/27/18 17:07 Duoneb INHALATION Q6HWA.RT PRN SHORTNESS OF BREATH Artificial Tears 1 drop 05/27/18 17:07 Tears Naturale, Artificial Tears OPHTHALMIC Q4H PRN PRN NOT SPECIFIED Aspirin 81 mg 05/28/18 08:00 06/01/18 09:17 Aspirin, Baby GT 81 mg DAILY@0800 AMBIKA Administration Atorvastatin Calcium 40 mg 05/27/18 22:00 05/31/18 21:33 Lipitor GT 40 mg QHS AMBIKA Administration Bisacodyl 10 mg 05/27/18 17:07 Dulcolax RECTAL DAILY PRN Constipation Calamine/Phenol 1 applic 05/27/18 18:00 06/01/18 04:58 Calmoseptine Ointment TOPICAL 1 applicatio BID AMBIKA Administration Protocol Enoxaparin Sodium 40 mg 05/28/18 06:00 06/01/18 04:58 Lovenox SC 40 mg DAILY@0600 AMBIKA Administration Ferrous Sulfate 300 mg 06/01/18 08:00 06/01/18 09:17 Ferrous Sulfate Syrup GT 300 mg BIDCM AMBIKA Administration Fluticasone Propionate 1 spray 05/27/18 18:00 06/01/18 05:03 Flonase Nasal [place] NASAL Not Given BID AMBIKA Sodium Chloride 1,000 mls @ 50 mls/hr 05/27/18 18:05 06/01/18 02:00 IV 50 mls/hr .Q20H AMBIKA Administration NUT.SUP,SPEC,LAC-FREE,IRON/FOS 1,000 mls @ 40 mls/hr 05/27/18 20:00 05/31/18 21:40 Twocal Hn Liquid GT 40 mls/hr .Q25H AMBIKA Administration Lactobacillus Acidophilus 1 tablet 05/27/18 18:00 06/01/18 05:00 Acidophilus GT 1 tablet BID AMBIKA Administration Lansoprazole 30 mg 05/28/18 06:00 06/01/18 05:00 Prevacid GT 30 mg DAILY AMBIKA Administration Neomycin/Polymyxin/Bacitracin 1 applic 05/28/18 20:00 06/01/18 05:03 Neosporin TOPICAL 1 applicatio DAILY AMBIKA Administration Protocol Nystatin 1 applic 05/27/18 22:00 06/01/18 04:58 Mycostatin Powder TOPICAL 1 applicatio 0600,2200 AMBIKA Administration Protocol Polyethylene Glycol 17 gm 05/28/18 06:00 06/01/18 05:00 Miralax GT 17 gm DAILY AMBIKA Administration Senna/Docusate Sodium 2 tablet 05/27/18 18:00 06/01/18 05:00 Senokot-S, Oly-Colace GT 2 tablet BID AMBIKA Administration Sodium Chloride 2 spray 05/27/18 17:07 [place] Nasal [place] NASAL BID PRN PRN NASAL DRYNESS Sodium Chloride 5 - 15 ml 05/27/18 17:40 IV UD PRN SALINE FLUSH Vital Signs Temp Pulse Resp BP Pulse Ox 96.6 F L 83 20 H 136/82 H 98 06/01/18 16:00 06/01/18 16:00 06/01/18 16:00 06/01/18 16:00 06/01/18 16:00 Oxygen Delivery Method Room Air Weight: 70.1 kg Body Mass Index (BMI) 22.1 Finger Stick Blood Glucose 104 Sodium 139 mmol/L (136-145) 05/28/18 06:52 Potassium 3.7 mmol/L (3.5-5.1) 05/28/18 06:52 Chloride 106 mmol/L (98-107) 05/28/18 06:52 Carbon Dioxide 25.0 mmol/L (21.0-32.0) 05/28/18 06:52 Anion Gap 8 (5-15) 05/28/18 06:52 BUN 28 mg/dL (7-18) H 05/28/18 06:52 Creatinine 1.45 mg/dL (0.70-1.30) H 05/28/18 06:52 Est GFR (MDRD) Af Amer 61 mL/min (>60) 05/28/18 06:52 Est GFR (MDRD) Non-Af 50 mL/min (>60) L 05/28/18 06:52 BUN/Creatinine Ratio 19.3 RATIO (10-20) 05/28/18 06:52 Glucose 115 mg/dL (74-106) H 05/28/18 06:52 Assessment/Plan: Psychotropic Medications: Unnecessary Medications: Bowel Regimen: - Provider Comments Provider responsibility: Provider responsible to enter orders to implement recommendations Provider Comments to Recommendations by Pharmacy: Agree
[2018-06-01 16:00] VITALS: BP 136/82; PULSE 83; RESP 20; TEMP 35.9; O2SAT 98
--- NOTE | 2018-06-01 16:14 | CHAPLAIN ---
Type of Pastoral Visit ___ Initial Visit _x__ Follow-up Visit ___ On-call Visit ___ General Patient Visit ___ Spiritual Assessment ___ Family Conference ___ Bereavement ___ Rapid Response ___ Code Blue ___ Other (describe below) Pastoral Care Referral From ___ Patient _x__ Family ___ Nurse ___ Physician ___ Machine Set Up ___ Assistant Librarian ___ Other (describe below) Sacrament/Intervention ___ Active listening ___ Anointing ___ Jehovah'S Witness ___ Bereavement ___ Communion ___ Abby exploration ___ ___ Life review _x__ Prayer ___ Reconciliation ___ Sacrament of Sick _x__ Supportive presence ___ Wedding ___ Other (describe below) Pastoral Comments family requests prayer for decisions being made; supportive presence given
--- NOTE | 2018-06-01 17:11 | CASEMGMT ---
Social Work Spoke with resident family in room with resident. Resident family reporting that [facility] is first choice at this time and would like this social media senior associate to look into this option. Will make referral tomorrow as it is now after business hours. Proposed discharge date: 06/09/18. PLAN: Discharge to an extended care facility. ANNA Michele, FRUIT AND VEGETABLE PACKER
[2018-06-01] MEDS: Atorvastatin Calcium 40 MG Tablet GT (20:18)
[2018-06-02] MEDS: Enoxaparin 40 MG/0.4 ML Syringe SC (05:12)
[2018-06-02] MEDS: Senna/Docusate Sodium 1 Tablet 2 TABLET GT ×2 (05:12→18:30)
[2018-06-02] MEDS: Polyethylene Glycol 3350 17 GM PACKET GT (05:12)
[2018-06-02] MEDS: Neomycin/Bacitracin/Polymyxin Ointment 1 APPLIC TOPICAL (05:19)
[2018-06-02] MEDS: Nystatin Powder 15gm Bottle 1 APPLIC TOPICAL ×2 (05:31→19:42)
[2018-06-02] MEDS: Menthol/Lanolin/Calamine/Znox 113 GM Tube 1 APPLIC TOPICAL ×2 (05:31→16:05)
[2018-06-02] MEDS: Ferrous Sulfate 300 MG/5 ML UDC GT ×2 (09:32→18:29)
[2018-06-02] MEDS: Aspirin 81 MG TAB.CHEW GT (09:32)
--- NOTE | 2018-06-02 10:59 | CASEMGMT ---
Social [facility]. This professor of social work making referral via voicemail. Clinical information faxed. Pending response at this time. Proposed discharge date: 06/09/18. ANNA Michele, AUDIT INTERN
--- NOTE | 2018-06-02 13:04 | CASEMGMT ---
[facility] reporting to not be able to confirm whether or not [facility] will be able to accept resident until Tuesday of next week. This professor of social work to follow up with Yojana on 06/07/18. Spoke with resident and resident family in room. This professor of social work communicating above information. Resident family planning to pick a second option and to have this to social work by Tuesday in the even that [facility] is not able to accept. Proposed discharge date: 06/09/18. PLAN: Discharge to an extended care facility - skilled. ANNA Michele, SEW ON OPERATOR
--- NOTE | 2018-06-02 13:14 | MDS.RN ---
Pain interview for celeste 06/03/18 completed.
--- NOTE | 2018-06-02 13:20 | CASEMGMT ---
Brief interview for mental status (BIMS) and resident mood interview (PHQ-9) completed on this day. BIMS score 05/20. PHQ-9 score 09/30
[2018-06-02 15:31] VITALS: BP 137/81; PULSE 89; RESP 16; TEMP 36.7; O2SAT 100
[2018-06-02] MEDS: 0.9% Normal Saline 1,000 ML 50 ML IV (19:26)
[2018-06-02] MEDS: Atorvastatin Calcium 40 MG Tablet GT (19:32)
[2018-06-03] MEDS: Polyethylene Glycol 3350 17 GM PACKET GT (06:11)
[2018-06-03] MEDS: Senna/Docusate Sodium 1 Tablet 2 TABLET GT ×2 (06:12→18:34)
[2018-06-03] MEDS: Nystatin Powder 15gm Bottle 1 APPLIC TOPICAL ×2 (06:19→21:32)
[2018-06-03] MEDS: Neomycin/Bacitracin/Polymyxin Ointment 1 APPLIC TOPICAL (06:19)
[2018-06-03] MEDS: Menthol/Lanolin/Calamine/Znox 113 GM Tube 1 APPLIC TOPICAL ×2 (06:19→18:34)
[2018-06-03] MEDS: Enoxaparin 40 MG/0.4 ML Syringe SC (06:20)
[2018-06-03] MEDS: Ferrous Sulfate 300 MG/5 ML UDC GT ×2 (08:59→18:34)
[2018-06-03] MEDS: Aspirin 81 MG TAB.CHEW GT (08:59)
--- NOTE | 2018-06-03 09:15 | NURSING ---
pt changed d/t incont of urine and stool. repositioned on back, therapy will be working with pt shortly. son at bedside. meds given via PEG tube, Tube flushed well. C/O tenderness to LT wrist. elevated on pillow, heels off bed. Pt ate breakfast with assist of son.
[2018-06-03 15:35] VITALS: BP 119/79; PULSE 86; RESP 16; TEMP 36.7; O2SAT 100
--- NOTE | 2018-06-03 18:04 | NURSING ---
pt & family refusing flonase, order changed to PRN
[2018-06-03] MEDS: 0.9% Normal Saline 1,000 ML 50 ML IV (18:45)
[2018-06-03] MEDS: Atorvastatin Calcium 40 MG Tablet GT (21:16)
[2018-06-04] MEDS: Senna/Docusate Sodium 1 Tablet 2 TABLET GT (05:36)
[2018-06-04] MEDS: Polyethylene Glycol 3350 17 GM PACKET GT (05:36)
[2018-06-04] MEDS: Neomycin/Bacitracin/Polymyxin Ointment 1 APPLIC TOPICAL (05:36)
[2018-06-04] MEDS: Enoxaparin 40 MG/0.4 ML Syringe SC (05:44)
[2018-06-04] MEDS: Menthol/Lanolin/Calamine/Znox 113 GM Tube 1 APPLIC TOPICAL ×2 (05:56→20:14)
[2018-06-04] MEDS: Nystatin Powder 15gm Bottle 1 APPLIC TOPICAL ×2 (05:56→20:15)
[2018-06-04 06:17] LABS: Absolute Lymphocyte Count 1.68 X10^3/ul (0.83-4.51); Absolute Neutrophil Count 3.2 X10^3/uL (2.0-7.7); Basophil# 0.01 X10^3/uL; Basophil% 0.2 % (0-1); Eosinophil# 0.62 X10^3/uL; Eosinophils% 10.4 % (0-5); Hematocrit 32.8 % (40-54); Hemoglobin 10.7 g/dl (13.0-16.5); Lymphocyte # 1.68 X10^3/ul (4.0); Lymphocyte % 28.1 % (19-41); Mean Corp Hgb Conc 32.6 g/gl (32-36); Mean Corpuscular Hgb 30.6 pg (27.0-32.0); Mean Corpuscular Volume 93.7 fL (80-94); Mean Platelet Vol. 9.4 fl (6.2-12.0); Monocyte# 0.48 X10^3/uL; Neutrophil # 3.17 X10^3/uL (2.7-7.7); Neutrophil % 53.1 % (47-70); Platelet Count 228 K/mm3 (150-450); RBC Distribution Width CV 14.9 % (11.6-14.6); RBC Distribution Width SD 48.4 fl (35.1-43.9)
[2018-06-04 06:18] LABS: POSITIVE COUNT NO; POSITIVE DIFFERENTIAL NO; POSITIVE MORPHOLOGY NO
[2018-06-04 06:29] LABS: Anion Gap 9 (5-15); BUN 26 mg/dL (7-18); Calcium,Total 9.3 mg/dL (8.5-10.1); Chloride 105 mmol/L (98-107); Creatinine, Serum 1.13 mg/dL (0.70-1.30); EST Glomerular Filtration Rate 67 mL/min (>60); Est Glom Filt Rate - Afr Amer 81 mL/min (>60); Estimated Creatinine Clearance 53.42 ml/min; Glucose 99 mg/dL (74-106); Potassium 4.3 mmol/L (3.5-5.1); Sodium Level 139 mmol/L (136-145)
[2018-06-04] MEDS: Aspirin 81 MG TAB.CHEW GT (09:39)
[2018-06-04] MEDS: Ferrous Sulfate 300 MG/5 ML UDC GT ×2 (09:39→20:15)
--- NOTE | 2018-06-04 09:40 | NURSING ---
meds crushed and given via PEG, pt tolerated well. sitting up 90 degrees in bed, daughter & son at bedside. IVF infusing continuously. call light in reach. Daughter asking about labs, labs given.
[2018-06-04 10:00] VITALS: PULSE 93; RESP 18
[2018-06-04] MEDS: 0.9% Normal Saline 1,000 ML 50 ML IV (14:54)
[2018-06-04 15:09] VITALS: BP 119/77; PULSE 89; RESP 16; TEMP 36.5; O2SAT 99
[2018-06-04] MEDS: Atorvastatin Calcium 40 MG Tablet GT (20:15)
[2018-06-05] MEDS: Menthol/Lanolin/Calamine/Znox 113 GM Tube 1 APPLIC TOPICAL ×2 (05:36→19:53)
[2018-06-05] MEDS: Nystatin Powder 15gm Bottle 1 APPLIC TOPICAL ×2 (05:36→19:54)
[2018-06-05] MEDS: Neomycin/Bacitracin/Polymyxin Ointment 1 APPLIC TOPICAL (05:36)
[2018-06-05] MEDS: Enoxaparin 40 MG/0.4 ML Syringe SC (05:37)
[2018-06-05] MEDS: Aspirin 81 MG TAB.CHEW GT (09:26)
[2018-06-05] MEDS: Ferrous Sulfate 300 MG/5 ML UDC GT ×2 (09:26→19:53)
[2018-06-05] MEDS: 0.9% Normal Saline 1,000 ML 50 ML IV (10:34)
[2018-06-05 15:05] VITALS: BP 134/94; PULSE 82; RESP 16; TEMP 36.5; O2SAT 96
[2018-06-05] MEDS: Senna/Docusate Sodium 1 Tablet 2 TABLET GT (19:54)
[2018-06-05] MEDS: Atorvastatin Calcium 40 MG Tablet GT (19:54)
[2018-06-06] MEDS: Nystatin Powder 15gm Bottle 1 APPLIC TOPICAL ×2 (04:43→20:02)
[2018-06-06] MEDS: Menthol/Lanolin/Calamine/Znox 113 GM Tube 1 APPLIC TOPICAL ×2 (04:43→18:11)
[2018-06-06] MEDS: Enoxaparin 40 MG/0.4 ML Syringe SC (04:44)
[2018-06-06] MEDS: Polyethylene Glycol 3350 17 GM PACKET GT (04:44)
[2018-06-06] MEDS: Senna/Docusate Sodium 1 Tablet 2 TABLET GT ×2 (04:44→18:11)
[2018-06-06] MEDS: Neomycin/Bacitracin/Polymyxin Ointment 1 APPLIC TOPICAL (04:45)
[2018-06-06] MEDS: 0.9% Normal Saline 1,000 ML 50 ML IV (08:23)
[2018-06-06] MEDS: Aspirin 81 MG TAB.CHEW GT (09:20)
[2018-06-06] MEDS: Ferrous Sulfate 300 MG/5 ML UDC GT ×2 (09:20→18:11)
--- NOTE | 2018-06-06 09:25 | NURSING ---
meds continue through PEG tube, Pt tolerated well. son at bedside.
[2018-06-06 16:00] VITALS: BP 140/84; PULSE 88; RESP 20; TEMP 36.3; O2SAT 96
[2018-06-06] MEDS: Atorvastatin Calcium 40 MG Tablet GT (20:02)
--- NOTE | 2018-06-06 23:14 | NURSING ---
Medications continued to be administered through peg tube, pt tolerated well. Pt sitting up in recliner with son and daughter in room.
[2018-06-07] MEDS: 0.9% Normal Saline 1,000 ML 50 ML IV ×2 (04:15→20:50)
--- NOTE | 2018-06-07 06:00 | NURSING ---
This nurse and VOTING MACHINE REPAIRER into provide AM care. After providing AM care, VOTING MACHINE REPAIRER asked pt if he would like hospital gown back on, pt declined. Pt reported to this nurse he preferred to sleep without the gown. While this nurse was gathering supplies to administer AM medications, pt's son approached this nurse and forcefully stated, Before for you leave, the hospital gown needs put back on! Pt's family at bedside all night. Will continue to monitor and asses.
[2018-06-07] MEDS: Neomycin/Bacitracin/Polymyxin Ointment 1 APPLIC TOPICAL (06:05)
[2018-06-07] MEDS: Menthol/Lanolin/Calamine/Znox 113 GM Tube 1 APPLIC TOPICAL ×2 (06:05→17:05)
[2018-06-07] MEDS: Senna/Docusate Sodium 1 Tablet 2 TABLET GT ×2 (06:06→17:05)
[2018-06-07] MEDS: Nystatin Powder 15gm Bottle 1 APPLIC TOPICAL ×2 (06:06→20:45)
[2018-06-07] MEDS: Polyethylene Glycol 3350 17 GM PACKET GT (06:06)
[2018-06-07] MEDS: Enoxaparin 40 MG/0.4 ML Syringe SC (06:07)
[2018-06-07] MEDS: Aspirin 81 MG TAB.CHEW GT (09:16)
[2018-06-07] MEDS: Ferrous Sulfate 300 MG/5 ML UDC GT ×2 (09:16→17:05)
--- NOTE | 2018-06-07 10:04 | CASEMGMT ---
Social Work [facility] Voicemail also left requesting a return phone call on whether or not [facility] is able to accept. Proposed discharge date: 06/09/18 PLAN: Transition to an ECF. ANNA Michele, ACCOUNTS PAYABLE ADMINISTRATOR
--- NOTE | 2018-06-07 13:33 | CASEMGMT ---
Social Work Telephone call from Yojana at [facility] ([facility]). Yojana reporting to be able to accept resident on 06/09/18. Spoke with resident and resident family in room. This psych social worker communicating above information. Resident and resident family agreeable to discharge plan. Resident family reporting to need transportation set up at time of discharge but to be unsure as to what time of day and plan to get back to this psych social worker on when to set up transportation up. Support given. PASRR completed in [facility]. Discharge information as well as PASRR results faxed to [facility]. Proposed discharge date: 06/09/18. PLAN: Discharge to [facility] - Skilled. ANNA Michele, CHART WRITER
[2018-06-07 15:42] VITALS: BP 142/88; PULSE 84; RESP 20; TEMP 36.5; O2SAT 98
[2018-06-07] MEDS: Atorvastatin Calcium 40 MG Tablet GT (20:18)
[2018-06-08] MEDS: Senna/Docusate Sodium 1 Tablet 2 TABLET GT (05:35)
[2018-06-08] MEDS: Enoxaparin 40 MG/0.4 ML Syringe SC (05:35)
[2018-06-08] MEDS: Menthol/Lanolin/Calamine/Znox 113 GM Tube 1 APPLIC TOPICAL ×2 (05:35→17:47)
[2018-06-08] MEDS: Nystatin Powder 15gm Bottle 1 APPLIC TOPICAL ×2 (05:36→20:12)
[2018-06-08] MEDS: Polyethylene Glycol 3350 17 GM PACKET GT (05:38)
[2018-06-08] MEDS: Neomycin/Bacitracin/Polymyxin Ointment 1 APPLIC TOPICAL (05:49)
[2018-06-08] MEDS: Aspirin 81 MG TAB.CHEW GT (09:45)
[2018-06-08] MEDS: Ferrous Sulfate 300 MG/5 ML UDC GT ×2 (09:45→17:38)
--- NOTE | 2018-06-08 12:47 | CASEMGMT ---
Social Work Spoke with resident and resident family in room. Resident family requesting for transportation to be set up via cot between 1-2pm. Support given. Telephone call to [facility]. Transportation set up via cot for 2:00pm on 06/09/18. Transportation form completed and placed with resident discharge information. Resident family is agreeable to discharge time/date/plan. Proposed discharge date: 06/09/18 PLAN: Discharge to [facility]. Reji Saenz, SILICATOR, [employer] OFFICER
--- NOTE | 2018-06-08 14:18 | CHAPLAIN ---
Type of Pastoral Visit ___ Initial Visit _x__ Follow-up Visit ___ On-call Visit ___ General Patient Visit ___ Spiritual Assessment ___ Family Conference ___ Bereavement ___ Rapid Response ___ Code Blue ___ Other (describe below) Pastoral Care Referral From _x__ Patient _x__ Family ___ Nurse ___ Physician ___ Probe Operator ___ Mechanical Unit Repairer ___ Other (describe below) Sacrament/Intervention ___ Active listening ___ Anointing ___ Evangelical ___ Bereavement ___ Communion ___ Abby exploration ___ ___ Life review _x__ Prayer ___ Reconciliation ___ Sacrament of Sick _x__ Supportive presence ___ Wedding ___ Other (describe below) Pastoral Comments patient is awake at this visit; family members are with him; pt responds to questions with nods and whispers; pt welcomes prayer and visit by car electronics installer; family expresses thankfulness for pt improvements
[2018-06-08 15:03] VITALS: BP 95/59; PULSE 90; RESP 16; TEMP 36.4; O2SAT 95
[2018-06-08] MEDS: 0.9% Normal Saline 1,000 ML 50 ML IV (16:30)
[2018-06-08 18:00] VITALS: BP 120/67
--- NOTE | 2018-06-08 18:08 | NURSING ---
NO for CBC with diff and BMP in AM of 06/09/18
--- NOTE | 2018-06-08 18:46 | NURSING ---
Pt's daughter approached nurses station stating something is wrong with my dad, he says he doesn't feel very good. Upon assessment patient states his stomach is upset and it feels like he has to have a bowel movement. LSCTA, S1S2 present, abdomen non-tender and soft, bowel sounds active in all four quadrants, respirations even and unlabored. Apical pulse 84. Patient is responsive and answering questions appropriately. No edema. Patient transferred back to bed, resting with eyes closed. Will continue to monitor.
[2018-06-08] MEDS: Atorvastatin Calcium 40 MG Tablet GT (20:12)
[2018-06-09] MEDS: Neomycin/Bacitracin/Polymyxin Ointment 1 APPLIC TOPICAL (05:00)
[2018-06-09] MEDS: Enoxaparin 40 MG/0.4 ML Syringe SC (05:00)
[2018-06-09] MEDS: Polyethylene Glycol 3350 17 GM PACKET GT (05:00)
[2018-06-09] MEDS: Senna/Docusate Sodium 1 Tablet 2 TABLET GT (05:00)
[2018-06-09] MEDS: Nystatin Powder 15gm Bottle 1 APPLIC TOPICAL (05:00)
[2018-06-09] MEDS: Menthol/Lanolin/Calamine/Znox 113 GM Tube 1 APPLIC TOPICAL (05:01)
[2018-06-09 06:21] LABS: Absolute Lymphocyte Count 2.06 X10^3/ul (0.83-4.51); Absolute Neutrophil Count 3.1 X10^3/uL (2.0-7.7); Basophil# 0.03 X10^3/uL; Basophil% 0.5 % (0-1); Eosinophil# 0.59 X10^3/uL; Eosinophils% 9.4 % (0-5); Hematocrit 31.8 % (40-54); Hemoglobin 10.4 g/dl (13.0-16.5); Lymphocyte # 2.06 X10^3/ul (4.0); Lymphocyte % 32.9 % (19-41); Mean Corp Hgb Conc 32.7 g/gl (32-36); Mean Corpuscular Hgb 30.6 pg (27.0-32.0); Mean Corpuscular Volume 93.5 fL (80-94); Monocyte# 0.51 X10^3/uL; Monocyte% 8.1 % (0-10); Neutrophil # 3.07 X10^3/uL (2.7-7.7); Neutrophil % 48.9 % (47-70); Platelet Count 246 K/mm3 (150-450); RBC Distribution Width CV 14.9 % (11.6-14.6); RBC Distribution Width SD 48.5 fl (35.1-43.9); White Blood Count 6.3 K/mm3 (4.4-11.0)
[2018-06-09 06:28] LABS: POSITIVE COUNT NO; POSITIVE DIFFERENTIAL NO; POSITIVE MORPHOLOGY NO
[2018-06-09 06:55] LABS: Anion Gap 10 (5-15); BUN 32 mg/dL (7-18); BUN/Creat Ratio 28.8 RATIO (10-20); Calcium,Total 9.4 mg/dL (8.5-10.1); Chloride 104 mmol/L (98-107); Creatinine, Serum 1.11 mg/dL (0.70-1.30); EST Glomerular Filtration Rate 68 mL/min (>60); Est Glom Filt Rate - Afr Amer 82 mL/min (>60); Estimated Creatinine Clearance 54.38 ml/min; Glucose 106 mg/dL (74-106); Potassium 4.3 mmol/L (3.5-5.1); Sodium Level 139 mmol/L (136-145)
--- NOTE | 2018-06-09 06:56 | MDS.RN ---
Information for the mds was obtained from review of the clinical record, interview of resident, staff, and direct observation of resident's care.
--- NOTE | 2018-06-09 08:55 | NURSING ---
Pt still eating breakfast with son assist. Wants meds given via Tube when pt done eating.
[2018-06-09] MEDS: Aspirin 81 MG TAB.CHEW GT (09:29)
[2018-06-09] MEDS: Ferrous Sulfate 300 MG/5 ML UDC GT (09:29)
[2018-06-09 13:02] VITALS: BP 118/77; PULSE 94; RESP 20; TEMP 36.9
--- NOTE | 2018-06-09 13:16 | NURSING ---
Report called to BRIDGETTE Holliday at [facility]. Pt changed and repositioned for transport by carissa mandel. Family at bedside.
== END 2018-06-09 14:00 | disposition skilled nursing facility (03) | DRG 948 ==
PROVIDERS: Admitting Provider Family Medicine Geriatric Medicine; Family Provider Family Medicine; PCP Family Medicine; Visit Provider Family Medicine Geriatric Medicine
DX: R53.81 Other malaise (principal); K57.32 Diverticulitis of large intestine without perforation or abscess without bleeding; G93.1 Anoxic brain damage, not elsewhere classified; B35.4 Tinea corporis; K21.9 Gastro-esophageal reflux disease without esophagitis; D50.9 Iron deficiency anemia, unspecified; E78.5 Hyperlipidemia, unspecified; I25.10 Atherosclerotic heart disease of native coronary artery without angina pectoris; I10 Essential (primary) hypertension; M47.896 Other spondylosis, lumbar region; R91.1 Solitary pulmonary nodule
CPT/HCPCS: 36415; 78815; 80048; 85025; 92507; 92526; 97110; 97163; 97166; 97530; 97535; 97802; 97803; A9552; J7030

== ENCOUNTER → 2018-05-29 08:33 | Outpatient (CLI) | payer MEDICARE, SELFPAY ==
[2018-05-25 13:51] VITALS: BMI 22.6
[2018-05-27 18:11] VITALS: BMI 22.1
--- NOTE | 2018-05-29 07:15 | PET_ITS ---
EXAMINATION: FDG PET/CT INDICATIONS: A 78-year-old male with reported history of pulmonary nodularity. COMPARISON EXAMINATION: CT of the chest, abdomen and pelvis report dated 05/07/18 INDEX LESION SIZE SUV INTERPRETATION Right upper hemithorax pulmonary parenchyma, right upper lobe, anterior-nodular 1.0 Quantitative criteria for viable neoplasm are not fulfilled NON-INDEX LESION SIZE SUV INTERPRETATION Right upper hemithorax pulmonary parenchyma, right upper lobe, posterior diffuse 1.5 Quantitative criteria for viable neoplasm are not fulfilled Mediastinum, bilateral thoracic perihilum 2.6 (max) Quantitative criteria for viable neoplasm are not fulfilled TECHNIQUE: Following the intravenous administration of F-18 deoxyglucose, multiplanar image acquisitions of the neck, chest, abdomen and pelvis to level of mid thigh, obtained at one hour post radiopharmaceutical administration contemporaneously interpreted with the current CT of the neck, chest, abdomen and pelvis to level of mid thigh, dated 05/29/[address] of the chest, abdomen and pelvis report dated 05/07/18 reveal: FINDINGS: 1. Mild increased glucose concentration is defined in the right upper anterior hemithorax pulmonary parenchyma, right upper lobe, generating a calculated maximal standard uptake value of 1.0. The maximal axial diameter of the rounded parenchymal density on review of CT of the chest dated 05/29/18 is 8.8-mm (AP). 2. Linear, non-nodular increased FDG uptake is defined in the right mid posterior lung field, right upper lobe, generating a calculated maximal standard uptake value of 1.5. 3. Mild increased glucose concentration is defined in the subcarinal mediastinum and bilateral thoracic perihilum generating a calculated maximal standard uptake value of 2.6. 4. Normal physiologic distribution of the radiopharmaceutical is apparent in the hepatic (2.6) and splenic parenchyma, both renal units, bladder and visualized intestinal tract. The visualized portion of the cerebral cortex demonstrate symmetric and preserved glucose metabolism. Diffuse radiopharmaceutical concentration is noted in all four quadrants of the abdomen and pelvis. Prominent glucose concentration is defined in both lobes of a u-shaped thyroid gland. Facilitated glucose concentration is noted in the abdominal aorta. Pertinent CT findings are as follows: CHEST: There are no additional parenchymal densities-nodules noted in the right-left hemithorax demonstrating discernible quantitatively significant increased glucose metabolism. There is atherosclerotic calcification defined in the thoracic aorta without evidence of dilatation-aneurysm formation. Coronary arterial calcification is observed. There are no additional parenchymal densities-nodules defined in the right-left hemithorax demonstrating discernible quantitatively significant increased glucose metabolism. ABDOMEN AND PELVIS: There is atherosclerotic calcification defined in the abdominal aorta without evidence of dilatation-aneurysm formation. Abdominal-pelvic arterial calcification is observed. Postsurgical change associated with aneurysm repairs defined at the level of the distal abdominal aorta. Retained oral contrast material is noted in the visualized intestinal tract. A right inguinal hernia with associated intestinal tract is defined. Right-left subcentimeter inguinal soft tissue densities are non-glucose avid. Multiple surgical clips are defined in the mid to lower abdominal retroperitoneum, upper hemipelvis. SKELETAL: Degenerative changes are noted in the cervical, thoracic and lumbar spine. PET/PET/CT Tumor Base -Thigh Init IMPRESSION: 1. NEGATIVE EXAMINATION. There is no definitive quantitative scintigraphic evidence of viable neoplasm. 2. Increased glucose concentration observed in the right upper-mid anterior hemithorax pulmonary parenchyma, right upper lobe, nodular in presentation, does not fulfill quantitative criteria for viable neoplasm. (Tucker et al, Annals of Internal Medicine, 138:724, 2003). 3. Metabolic and/or anatomic stability may be ensured in the right upper anterior hemithorax pulmonary parenchyma, right upper lobe, abnormality with repeat FDG PET study and/or CT of the thorax in three months. (Xiu, Journal of Nuclear Medicine 45:88, P2004 [facility], Seminars in Thoracic and Cardiovascular Surgery 14:292, 2002). 4. Enhanced FDG uptake noted in the mediastinum, bilateral thoracic perihilum and right mid posterior lung field do not fulfill quantitative criteria for neoplastic infiltration. 5. Prominent glucose concentration observed in the left and right lobe of the u-shaped thyroid gland is most consistent with goiter formation. Correlation with thyroid ultrasound may be of benefit. Electronic Signature Aung Colon D.O. Electronically Signed: Aung Colon DO at 21:32 EST Tel , Service support ,
== END ==
PROVIDERS: Family Provider Family Medicine; PCP Family Medicine; Visit Provider Family Medicine Geriatric Medicine
DX: R91.1 Solitary pulmonary nodule (principal)
CPT/HCPCS: 78815; A9552

== ENCOUNTER 2018-06-20 06:49 | Emergency (ER) | payer MEDICARE, SELFPAY ==
[2018-06-20 06:52] VITALS: BP 119/73; PULSE 78; PULSE 89; RESP 14; RESP 16; TEMP 36.1; TEMP 36.6; O2SAT 97; O2SAT 98; BMI 23.6
--- NOTE | 2018-06-20 08:31 | ED.VISSUMM ---
- ER Visit Summary Date of Service: 06/20/18 Chief Complaint: PEG tube out History of Present Illness: The patient is a 78 M who uses his PEG tube for feeds at night and for medications. It was originally placed in January at [facility] and then replaced after it came out in May, 1 month ago. The patient actually pulled out last night. He did not have his feeds overnight last night. He has been using it as recently as 4:30 PM yesterday. No other complaints. Physical Examination: Afebrile and vital signs unremarkable. Abdomen soft and nontender. Left upper quadrant stoma site clean, dry, intact. Test Results: None performed Emergency Department Course and Treatment: I attempted to replace his PEG tube, but the stoma was closed. I could not even insert a cotton swab. I spoke with his primary, Dr. Jeffries and I spoke with the patient's family. Family would like to discontinue the PEG tube if possible. Dr. Jeffries said that if we could replace it, that would be helpful, but if we cannot replace it, they will see how he does without it. Patient was evaluated by Dr. Willis who also could not replace the tube. Patient will be discharged out. If he has any issues he can be scheduled for replacement. Treatment Plan: As above Disposition: Discharge Impression: 1. Attention to PEG tube This note was generated with [employer] dictation software. It may contain incorrect words, spelling, and punctuation that were not noted in review of the chart prior to signing ED Disposition - Plan for ED Patient: Chief Complaint: Wound Referrals: Jack Olmedo MD [Primary Care Provider] -
--- NOTE | 2018-06-20 08:34 | ED.DCSUM_ITS ---
- ER Visit Summary Date of Service: 06/20/18 Chief Complaint: PEG tube out History of Present Illness: The patient is a 78 M who uses his PEG tube for feeds at night and for medications. It was originally placed in January at [facility] and then replaced after it came out in May, 1 month ago. The p atient actually pulled out last night. He did not have his feeds overnight last night. He has been using it as recently as 4:30 PM yesterday. No other complaints. Physical Examination: Afebrile and vital signs unremarkable. Abdomen soft and nontender. Left upper quadrant stoma site clean, dry, intact. Test Results: None performed Emergency Department Course and Treatment: I attempted to replace his PEG tube, but the stoma was closed. I could not even insert a cotton swab. I spoke with his primary, Dr. Jeffries and I spoke with the patient's family. Family would like to discontinue the PEG tube if possible. Dr. Jeffries said that if we could replace it, that would be helpful, but if we cannot replace it, they will see how he does without it. Patient was evaluated by Dr. Willis who also could not replace the tube. Patient will be discharged out. If he has any issues he can be scheduled for replacement. Treatment Plan: As above Disposition: Discharge Impression: 1. Attention to PEG tube This note was generated with [employer] dictation software. It may contain incorrect words, spelling, and punctuation that were not noted in review of the chart prior to signing ED Disposition - Plan for ED Patient: Chief Complaint: Wound Referrals: Jack Olmdeo MD [Primary Care Provider] -
--- NOTE | 2018-06-20 08:34 | ED.DEP ---
ED Disposition - Plan for ED Patient: Chief Complaint: Wound Referrals: Noel Jeffries MD [STAFF PHYSICIAN] -
--- NOTE | 2018-06-20 08:48 | NURSING ---
CALLED [facility] FOR TRANSPORT. ETA IS FROM [place]
[2018-06-20 09:21] VITALS: BP 105/94; RESP 16; O2SAT 97
== END 2018-06-20 09:22 | disposition home or self-care (01) ==
PROVIDERS: Emergency Provider Emergency Medicine; Family Provider Family Medicine; PCP Family Medicine
DX: Z43.1 Encounter for attention to gastrostomy (principal); I25.10 Atherosclerotic heart disease of native coronary artery without angina pectoris; I10 Essential (primary) hypertension; K21.9 Gastro-esophageal reflux disease without esophagitis; Z79.01 Long term (current) use of anticoagulants; Z79.82 Long term (current) use of aspirin; Z79.899 Other long term (current) drug therapy; Z86.2 Personal history of diseases of the blood and blood-forming organs and certain disorders involving the immune mechanism; Z86.73 Personal history of transient ischemic attack (TIA), and cerebral infarction without residual deficits
CPT/HCPCS: 99284; A4216

== ENCOUNTER → 2018-07-14 06:24 | Outpatient (REF) | payer MEDICARE, SELFPAY ==
[2018-06-20 06:52] VITALS: BMI 23.6
[2018-07-14 08:36] LABS: Hematocrit 33.6 % (40-54); Hemoglobin 10.6 g/dl (13.0-16.5); Mean Corp Hgb Conc 31.5 g/gl (32-36); Mean Corpuscular Hgb 29.8 pg (27.0-32.0); Mean Corpuscular Volume 94.4 fL (80-94); Mean Platelet Vol. 9.5 fl (6.2-12.0); Platelet Count 259 K/mm3 (150-450); RBC Distribution Width CV 14.3 % (11.6-14.6); Red Blood Count 3.56 M/mm3 (4.6-6.2); Scan Indicated on CBC? Y/N NO; White Blood Count 6.4 K/mm3 (4.4-11.0)
[2018-07-14 08:47] LABS: Anion Gap 12 (5-15); BUN 37 mg/dL (7-18); BUN/Creat Ratio 29.8 RATIO (10-20); Calcium,Total 9.8 mg/dL (8.5-10.1); Chloride 103 mmol/L (98-107); Creatinine, Serum 1.24 mg/dL (0.70-1.30); EST Glomerular Filtration Rate 60 mL/min (>60); Est Glom Filt Rate - Afr Amer 72 mL/min (>60); Glucose 92 mg/dL (74-106); Sodium Level 139 mmol/L (136-145)
== END ==
LOC: OLS.WHLTCC 06:24
PROVIDERS: Visit Provider Family Medicine
DX: I10 Essential (primary) hypertension (principal); E78.5 Hyperlipidemia, unspecified
CPT/HCPCS: 36415; 80048; 85027

== ENCOUNTER → 2018-12-06 11:52 | Outpatient (CLI) | payer MEDICARE, SELFPAY ==
[2018-12-06 14:51] LABS: Hematocrit 42.5 % (40-54); Hemoglobin 13.8 g/dl (13.0-16.5); Mean Corp Hgb Conc 32.5 g/gl (32-36); Mean Corpuscular Hgb 29.6 pg (27.0-32.0); Mean Corpuscular Volume 91.2 fL (80-94); Mean Platelet Vol. 9.7 fl (6.2-12.0); Platelet Count 168 K/mm3 (150-450); RBC Distribution Width SD 46.4 fl (35.1-43.9); Red Blood Count 4.66 M/mm3 (4.6-6.2); White Blood Count 6.2 K/mm3 (4.4-11.0)
[2018-12-06 14:58] LABS: Scan Indicated on CBC? Y/N NO
[2018-12-06 15:09] LABS: AST(SGOT) 14 U/L (15-37); Alanine Aminotransfer ALT/SGPT 15 U/L (16-61); Albumin, Serum 3.6 g/dL (3.2-5.0); Alkaline Phosphatase 146 U/L (45-117); Anion Gap 11 (5-15); BUN 19 mg/dL (7-18); BUN/Creat Ratio 17.1 RATIO (10-20); Calcium,Total 9.2 mg/dL (8.5-10.1); Chloride 103 mmol/L (98-107); Creatinine, Serum 1.11 mg/dL (0.70-1.30); EST Glomerular Filtration Rate 68 mL/min (>60); Est Glom Filt Rate - Afr Amer 82 mL/min (>60); Globulin 3.5 g/dL (2.2-4.2); Glucose 106 mg/dL (74-106); Magnesium 2.2 mg/dL (1.6-2.6); Protein, Total 7.1 g/dL (6.4-8.2); Sodium Level 141 mmol/L (136-145); Thyroid Stim Hormone (TSH) 3.78 uIU/mL (0.358-3.74)
== END ==
PROVIDERS: Family Provider Family Medicine; PCP Family Medicine; Referring Provider Family Medicine; Visit Provider Family Medicine
DX: E87.8 Other disorders of electrolyte and fluid balance, not elsewhere classified (principal); D64.9 Anemia, unspecified; K59.09 Other constipation
CPT/HCPCS: 36415; 80053; 83735; 84443; 85027

== ENCOUNTER → 2019-01-01 08:05 | Outpatient (CLI) | payer MEDICARE, SELFPAY ==
[2019-01-01 11:11] LABS: Anion Gap 5 (5-15); BUN 21 mg/dL (7-18); BUN/Creat Ratio 18.3 RATIO (10-20); Chloride 106 mmol/L (98-107); Creatinine, Serum 1.15 mg/dL (0.70-1.30); EST Glomerular Filtration Rate 65 mL/min (>60); Est Glom Filt Rate - Afr Amer 79 mL/min (>60); Glucose 104 mg/dL (74-106); Potassium 4.1 mmol/L (3.5-5.1); Sodium Level 139 mmol/L (136-145)
== END ==
PROVIDERS: Family Provider Family Medicine; PCP Family Medicine; Referring Provider Family Medicine; Visit Provider Nurse Practitioner Primary Care
DX: I71.3 Abdominal aortic aneurysm, ruptured (principal); Z98.890 Other specified postprocedural states
CPT/HCPCS: 80048

== ENCOUNTER → 2019-01-10 12:55 | Outpatient (CLI) | payer MEDICARE, SELFPAY | PROVIDERS: Family Provider Family Medicine; PCP Family Medicine; Referring Provider Clinical Nurse Specialist Acute Care; Visit Provider Clinical Nurse Specialist Acute Care | DX: G47.33 Obstructive sleep apnea (adult) (pediatric) (principal) | CPT/HCPCS: 95806 ==

== ENCOUNTER → 2019-02-27 20:00 | Outpatient (CLI) | payer MEDICARE, SELFPAY | PROVIDERS: Family Provider Family Medicine; PCP Family Medicine; Referring Provider Clinical Nurse Specialist Acute Care; Visit Provider Clinical Nurse Specialist Acute Care | DX: G47.33 Obstructive sleep apnea (adult) (pediatric) (principal) | CPT/HCPCS: 95811 ==

== ENCOUNTER 2020-03-30 00:28 | Emergency (ER) | payer MEDICARE, SELFPAY ==
[2020-03-30 00:29] VITALS: BP 155/107; PULSE 97; RESP 20; TEMP 36.6; O2SAT 94; BMI 24.3
--- NOTE | 2020-03-30 00:59 | ED.DCSUM_ITS ---
- ER Visit Summary Date of Service: 03/30/20 Chief Complaint: Fever, and hematuria History of Present Illness: The patient is a 80 M who presents with fever and hematuria that began tonight. Patient had a fever of 100.2 at home. Patient was given Tylenol but had emesis after taking the Tylenol. Family is unsure how much she was able to keep down. Family noted that the patient was having some burning with urination and then developed some hematuria. Patient has a history of prior urinary tract infections. Patient does admit to some mild low back pain. Patient denies any chest pain or shortness of breath. Physical Examination: Vital signs are stable. Patient is afebrile. Patient is in no acute distress. Oral mucosa is pink and moist. Neck is supple. Trachea is midline. There is no JVD noted. Lungs are clear and equal bilaterally. Abdomen is soft. Bowel sounds are normal. There is no tenderness. Cranial nerves II through XII are intact. There are no focal motor or sensory deficits noted. Test Results: CBC shows a mild leukocytosis of 13.1. Comprehensive metabolic profile showed a slightly elevated creatinine of 1.34 and total bilirubin of 1.4. Urinalysis showed leukocyte esterase of 500 with positive nitrates. There were greater than 100 white blood cells and greater than 100 red blood cells. There is 2+ bacteria. Emergency Department Course and Treatment: Patient was given a dose of Rocephin here. Patient was also given a dose of morphine and Zofran. Urine culture was obtained. Patient and family want to go home. Patient was given a prescription for Augmentin. Patient was instructed to follow-up with his primary care physician in 3 to 5 days. Patient understood and was agreeable with the plan. All questions were answered. Disposition: Discharge home Impression: 1. Urinary tract infection This note was generated with [employer] dictation software. It may contain incorrect words, spelling, and punctuation that were not noted in review of the chart prior to signing ED Disposition - Plan for ED Patient: Disposition: Home or Assisted Living Diagnosis: Urinary tract infection Instructions: ED CYSTITIS Male Adult Prescriptions: Amox/Clavulanate Tablet [Augmentin Tablet] 875 mg PO Q12H #20 tab Prescription Printed Referrals: Jack Olmedo MD [Primary Care Provider] - 3-5 Days
[2020-03-30 01:16] LABS: Absolute Neutrophil Count 10.2 X10^3/uL (2.0-7.7); Basophil# 0.03 X10^3/uL; Basophil% 0.2 % (0-1); Eosinophil# 0.11 X10^3/uL; Eosinophils% 0.8 % (0-5); Hematocrit 47.2 % (40-54); Hemoglobin 15.4 g/dL (13.0-16.5); Lymphocyte % 13.8 % (19-41); Mean Corp Hgb Conc 32.6 g/dL (32-36); Mean Corpuscular Hgb 28.8 pg (27.0-32.0); Mean Corpuscular Volume 88.4 fL (80-94); Mean Platelet Vol. 9.3 fl (6.2-12.0); Monocyte# 0.86 X10^3/uL; Monocyte% 6.6 % (0-10); NRBC Flagged by Analyzer 0 % (0-5); Neutrophil # 10.22 X10^3/uL (2.7-7.7); Neutrophil % 78.1 % (47-70); Platelet Count 149 K/mm3 (150-450); RBC Distribution Width CV 13.6 % (11.6-14.6); RBC Distribution Width SD 43.8 fl (35.1-43.9); Red Blood Count 5.34 M/mm3 (4.6-6.2); White Blood Count 13.1 K/mm3 (4.4-11.0)
[2020-03-30 01:29] VITALS: BP 148/86; PULSE 93; RESP 22; O2SAT 93
[2020-03-30 01:32] LABS: ALB/GLOB Ratio 0.9 RATIO (0.9-2.4); AST(SGOT) 18 U/L (15-37); Alanine Aminotransfer ALT/SGPT 24 U/L (16-61); Albumin, Serum 3.7 g/dL (3.2-5.0); Alkaline Phosphatase 198 U/L (45-117); Anion Gap 6 (5-15); BUN 14 mg/dL (7-18); BUN/Creat Ratio 10.4 RATIO (10-20); Calcium,Total 9.1 mg/dL (8.5-10.1); Chloride 104 mmol/L (98-107); Creatinine, Serum 1.34 mg/dL (0.70-1.30); EST Glomerular Filtration Rate 55 mL/min (>60); Est Glom Filt Rate - Afr Amer 66 mL/min (>60); Estimated Creatinine Clearance 46.83 ml/min; Glucose 123 mg/dL (74-106); Potassium 4.3 mmol/L (3.5-5.1); Protein, Total 7.7 g/dL (6.4-8.2); Sodium Level 136 mmol/L (136-145)
[2020-03-30 01:41] LABS: Mucous, Urine 0 SEEN /hpf (<or=2+); Squamous Epithelial Cells - UA 0 SEEN /hpf (0-5)
[2020-03-30 02:03] LABS: Color, Urine Brown (Yellow); Glucose, Dipstick Normal (Normal); Ketone-Dipstick 5 mg/dl (Negative); Leukocyte Esterase-Dipstick 500 /ul (Negative); Nitrite-Dipstick Positive (Negative); Occult Blood-Urine 250 /ul (Negative); Protein-Dipstick 500 mg/dl (Negative); Specific Gravity, Urine 1.015 (1.002-1.030); Urine Bilirubin Dipstick Negative (Negative); Urine Clarity Turbid (Clear); Urine Urobilinogen Normal (Normal)
[2020-03-30 02:12] LABS: Bacteria 2+ /hpf (None Seen); Red Blood Cells-Urine > 100 SEEN /hpf (0-5); White Blood Cells >100 SEEN /hpf (0-5)
[2020-03-30] MEDS: Ceftriaxone 1 GM/50 ML BAG IV (02:54)
[2020-03-30] MEDS: Morphine 4 MG/ML Syringe IV (03:02)
[2020-03-30 03:03] VITALS: BP 174/90; PULSE 90; RESP 17; TEMP 36.8; O2SAT 95
[2020-03-30] MEDS: Ondansetron 4 MG/2 ML Vial IV (03:14)
[2020-03-30 03:45] VITALS: BP 159/98; PULSE 90; RESP 22; O2SAT 94
== END 2020-03-30 04:24 | disposition home or self-care (01) ==
PROVIDERS: Emergency Provider Emergency Medicine; PCP Family Medicine
DX: N39.0 Urinary tract infection, site not specified (principal); I25.10 Atherosclerotic heart disease of native coronary artery without angina pectoris; Z79.82 Long term (current) use of aspirin; Z79.899 Other long term (current) drug therapy; Z87.440 Personal history of urinary (tract) infections; Z95.5 Presence of coronary angioplasty implant and graft
CPT/HCPCS: 80053; 81001; 85025; 87077; 87086; 87088; 87186; 96361; 96365; 96375; 99284; A4216; J2405

== ENCOUNTER → 2020-04-07 08:14 | Outpatient (CLI) | payer MEDICARE, SELFPAY ==
[2020-03-30 00:29] VITALS: BMI 24.3
[2020-04-07 10:00] LABS: Hematocrit 41.9 % (40-54); Hemoglobin 13.5 g/dL (13.0-16.5); Mean Corp Hgb Conc 32.2 g/dL (32-36); Mean Corpuscular Hgb 28.5 pg (27.0-32.0); Mean Corpuscular Volume 88.6 fL (80-94); Mean Platelet Vol. 9.5 fl (6.2-12.0); Platelet Count 185 K/mm3 (150-450); RBC Distribution Width CV 13.9 % (11.6-14.6); RBC Distribution Width SD 45.1 fl (35.1-43.9); Red Blood Count 4.73 M/mm3 (4.6-6.2); White Blood Count 5.4 K/mm3 (4.4-11.0)
[2020-04-07 11:39] LABS: ALB/GLOB Ratio 0.8 RATIO (0.9-2.4); AST(SGOT) 18 U/L (15-37); Alanine Aminotransfer ALT/SGPT 22 U/L (16-61); Albumin, Serum 2.8 g/dL (3.2-5.0); Alkaline Phosphatase 141 U/L (45-117); Anion Gap 8 (5-15); BUN 18 mg/dL (7-18); BUN/Creat Ratio 16.2 RATIO (10-20); Calcium,Total 8.3 mg/dL (8.5-10.1); Chloride 105 mmol/L (98-107); Creatinine, Serum 1.11 mg/dL (0.70-1.30); EST Glomerular Filtration Rate 68 mL/min (>60); Est Glom Filt Rate - Afr Amer 82 mL/min (>60); Globulin 3.5 g/dL (2.2-4.2); Glucose 89 mg/dL (74-106); Potassium 4.3 mmol/L (3.5-5.1); Protein, Total 6.3 g/dL (6.4-8.2); Sodium Level 138 mmol/L (136-145)
== END ==
PROVIDERS: PCP Family Medicine; Visit Provider Family Medicine
DX: N10 Acute pyelonephritis (principal)
CPT/HCPCS: 36415; 80053; 85027; 86140

== ENCOUNTER → 2020-04-09 | Outpatient (CLI) | payer MEDICARE, SELFPAY ==
[2020-03-30 00:29] VITALS: BMI 24.3
== END | disposition home or self-care (01) ==
LOC: LABSPEC 13:47
PROVIDERS: PCP Family Medicine; Referring Provider Family Medicine; Visit Provider Family Medicine
DX: Z20.828 Contact with and (suspected) exposure to other viral communicable diseases (principal)
CPT/HCPCS: 87635; U0003

== ENCOUNTER → 2020-04-16 | Outpatient (CLI) | payer MEDICARE, SELFPAY ==
[2020-03-30 00:29] VITALS: BMI 24.3
[2020-04-16 16:14] LABS: Mucous, Urine 0 SEEN /hpf (<or=2+); Squamous Epithelial Cells - UA 0 SEEN /hpf (0-5)
[2020-04-16 21:14] LABS: Color, Urine Yellow (Yellow); Glucose, Dipstick Normal (Normal); Ketone-Dipstick Negative (Negative); Leukocyte Esterase-Dipstick 500 /ul (Negative); Nitrite-Dipstick Negative (Negative); Occult Blood-Urine 250 /ul (Negative); Protein-Dipstick 15 mg/dl (Negative); Urine Bilirubin Dipstick Negative (Negative); Urine Clarity Cloudy (Clear); Urine Urobilinogen Normal (Normal)
[2020-04-16 21:25] LABS: Bacteria 3+ /hpf (None Seen); Red Blood Cells-Urine 0-5 SEEN /hpf (0-5); White Blood Cells >100 SEEN /hpf (0-5)
== END | disposition home or self-care (01) ==
LOC: LABSPEC 16:11
PROVIDERS: PCP Family Medicine; Referring Provider Family Medicine; Visit Provider Family Medicine
DX: N39.0 Urinary tract infection, site not specified (principal)
CPT/HCPCS: 81001; 87077; 87086; 87088; 87186

== ENCOUNTER → 2020-04-23 07:31 | Outpatient (CLI) | payer MEDICARE, SELFPAY ==
[2020-03-30 00:29] VITALS: BMI 24.3
--- NOTE | 2020-04-23 07:37 | CT_ITS ---
STUDY: CT ABDOMEN AND PELVIS WITHOUT CONTRAST REASON FOR EXAM: Male, 80 years old. LEFT FLANK PAIN RADIATION DOSAGE (If Supplied By Facility): CTDIvol = ( 11.13 ) mGy, DLP = ( 559.10 ) mGycm TECHNIQUE: Transaxial images were obtained from the dome of the diaphragm to the symphysis pubis without oral contrast, and without intravenous contrast. Sagittal and coronal images were reconstructed. Individualized dose optimization techniques were used for this CT. COMPARISON: Comparison is made with prior examination in 05/26/2018. FINDINGS: Mild degree of increased markings at the lung bases slightly more prominent on the left side. This is essentially unchanged and may represent bibasilar scarring. Calcified granuloma in the posterior medial segment of the right lower lobe. Coronary artery calcification. Normal liver. The patient is status post cholecystectomy. Normal spleen. Normal pancreas. Normal bilateral adrenal glands. There is a new 1.3 cm x 0.9 cm hypodense nodule arising from the lateral aspect of the upper pole of the right kidney. This may represent a small cyst. Correlation with ultrasound is recommended for further evaluation. Normal left kidney. Normal visualized stomach. Normal small intestine. There are multiple colonic diverticula consistent with diverticulosis. The appendix is visualized and appears normal. There is diffuse atherosclerotic calcification of the abdominal aorta. Once again, there is evidence of prior aortic biiliac grafting of the barrow aorta. Surgical clips are seen in the retroperitoneal region.Normal inferior vena cava. Normal retroperitoneum. Normal urinary bladder. Large right inguinal hernia containing nondilated small bowel loops. Disc space narrowing and spondylosis at the L2-L3 level. CT/Abdomen/Pelvis without Cont IMPRESSION: Findings suggestive of a bibasilar scarring. 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 Large right inguinal hernia containing nondilated small bowel loops. 1.3 cm x 0.9 cm hypodense nodule arising from the lateral aspect of the upper pole of the right kidney. Correlation with ultrasound is recommended to assess for possible renal cyst. Electronically Signed: Bertrand Steel, at 9:01 EST , Service support ,
== END ==
PROVIDERS: PCP Family Medicine; Referring Provider Family Medicine; Visit Provider Family Medicine
DX: N30.90 Cystitis, unspecified without hematuria (principal)
CPT/HCPCS: 74176

== ENCOUNTER → 2020-11-20 08:23 | Outpatient (CLI) | payer MEDICARE, SELFPAY ==
[2020-11-20 10:29] LABS: Erythrocyte Sedimentation Rate 9 mm/hr (0-20)
[2020-11-20 10:31] LABS: Hematocrit 44.2 % (40-54); Hemoglobin 14.2 g/dL (13.0-16.5); Mean Corp Hgb Conc 32.1 g/dL (32-36); Mean Corpuscular Volume 90.4 fL (80-94); Mean Platelet Vol. 9.2 fl (6.2-12.0); Platelet Count 139 K/mm3 (150-450); RBC Distribution Width SD 46.5 fl (35.1-43.9); Red Blood Count 4.89 M/mm3 (4.6-6.2)
[2020-11-20 11:20] LABS: ALB/GLOB Ratio 0.9 RATIO (0.9-2.4); AST(SGOT) 16 U/L (15-37); Alanine Aminotransfer ALT/SGPT 21 U/L (16-61); Albumin, Serum 3.2 g/dL (3.2-5.0); Alkaline Phosphatase 185 U/L (45-117); Anion Gap 6 (5-15); BUN 17 mg/dL (7-18); BUN/Creat Ratio 11.2 RATIO (10-20); Calcium,Total 8.8 mg/dL (8.5-10.1); Chloride 105 mmol/L (98-107); Creatinine, Serum 1.52 mg/dL (0.70-1.30); EST Glomerular Filtration Rate 47 mL/min (>60); Est Glom Filt Rate - Afr Amer 57 mL/min (>60); Globulin 3.6 g/dL (2.2-4.2); Glucose 99 mg/dL (74-106); Potassium 4.3 mmol/L (3.5-5.1); Protein, Total 6.8 g/dL (6.4-8.2); Sodium Level 139 mmol/L (136-145); Thyroid Stim Hormone (TSH) 3.42 uIU/mL (0.358-3.74)
== END ==
PROVIDERS: PCP Family Medicine; Referring Provider Family Medicine; Visit Provider Family Medicine
DX: I10 Essential (primary) hypertension (principal); F48.2 Pseudobulbar affect
CPT/HCPCS: 36415; 80053; 84403; 84443; 85027; 85652; 86140

== ENCOUNTER → 2021-02-04 08:02 | Outpatient (CLI) | payer MEDICARE, SELFPAY ==
[2021-02-04 10:16] LABS: Hematocrit 43.3 % (40-54); Hemoglobin 14.1 g/dL (13.0-16.5); Mean Corp Hgb Conc 32.6 g/dL (32-36); Mean Corpuscular Hgb 29.1 pg (27.0-32.0); Mean Corpuscular Volume 89.5 fL (80-94); Mean Platelet Vol. 9.3 fl (6.2-12.0); Platelet Count 133 K/mm3 (150-450); RBC Distribution Width CV 14.2 % (11.6-14.6); RBC Distribution Width SD 45.8 fl (35.1-43.9); Red Blood Count 4.84 M/mm3 (4.6-6.2); White Blood Count 5.4 K/mm3 (4.4-11.0)
[2021-02-04 10:31] LABS: Vitamin B12 491 pg/mL (211-911)
[2021-02-04 11:19] LABS: ALB/GLOB Ratio 1.1 RATIO (0.9-2.4); AST(SGOT) 15 U/L (15-37); Alanine Aminotransfer ALT/SGPT 20 U/L (16-61); Albumin, Serum 3.4 g/dL (3.2-5.0); Alkaline Phosphatase 159 U/L (45-117); Anion Gap 7 (5-15); BUN 24 mg/dL (7-18); BUN/Creat Ratio 16.8 RATIO (10-20); Calcium,Total 8.6 mg/dL (8.5-10.1); Chloride 105 mmol/L (98-107); Creatinine, Serum 1.43 mg/dL (0.70-1.30); EST Glomerular Filtration Rate 50 mL/min (>60); Est Glom Filt Rate - Afr Amer 61 mL/min (>60); Globulin 3.1 g/dL (2.2-4.2); Glucose 108 mg/dL (74-106); Potassium 4.3 mmol/L (3.5-5.1); Protein, Total 6.5 g/dL (6.4-8.2); Sodium Level 138 mmol/L (136-145)
[2021-02-07 23:08] LABS: Vitamin B1, Thiamine 119.1 nmol/L (66.5-200.0)
== END ==
PROVIDERS: PCP Family Medicine; Referring Provider Psychiatry & Neurology Neurology; Visit Provider Psychiatry & Neurology Neurology
DX: G25.3 Myoclonus (principal); G93.1 Anoxic brain damage, not elsewhere classified; R45.4 Irritability and anger; I10 Essential (primary) hypertension
CPT/HCPCS: 36415; 80053; 82140; 82607; 82746; 84425; 85027

== ENCOUNTER → 2021-04-02 10:46 | Outpatient (CLI) | payer MEDICARE, SELFPAY ==
--- NOTE | 2021-04-02 10:49 | MRI_ITS ---
STUDY: MRI BRAIN WITH AND WITHOUT CONTRAST REASON FOR EXAM: Male, 81 years old. 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 IV 14cc dotarem was administered for the contrast portion of the examination. COMPARISON: 05/26/2018 FINDINGS: There is severe cerebral atrophy with widening of the extra-axial spaces and ventricular dilatation. There are multiple white matter hyperintensities, distributed throughout the deep white matter tracts of the cerebral hemispheres, consistent with moderate chronic white matter ischemic changes. There is no evidence for recent intracranial ischemia or other cause of cytotoxic edema on diffusion weighted imaging (DWI). Normal T2* images of the brain without demonstrated susceptibility artifact. There is no demonstrated hemosiderin stain. Normal bilateral basal ganglia. Normal thalami. There is no extra-axial fluid accumulation. Normal flow voids within the major intracranial circulation suggesting patency by spin echo criteria. Normal venous enhancement. There is no enhancing intra-axial or extra-axial abnormality. Normal sella turcica, pituitary gland, infundibular stalk, optic chiasm and hypothalamus. Normal tectal plate and pineal gland. Normal midbrain, angie and medulla. Normal cerebellum. Normal basal cisterns. There is mild chronic otomastoiditis of the bilateral temporal bones. Normal bilateral internal auditory canals. No demonstrated orbital abnormality, within the constraints of a routine brain study. There is mucoperiosteal inflammatory disease of the paranasal sinuses consistent with mild chronic sinusitis. Normal calvarium and skull base. Normal visualized soft tissue structures. Normal visualized upper cervical spine. MRI/Brain W/WO Contrast IMPRESSION: Involutional changes of the brain, as described above. No acute infarct. Electronically Signed: Aung Tomlinson MD at 12:48 EDT Tel , Service support ,
[2021-04-02 11:31] LABS: CREATININE FINGERSTICK 1.3 mg/dL (0.70-1.30)
== END ==
PROVIDERS: PCP Family Medicine; Referring Provider Psychiatry & Neurology Neurology; Visit Provider Psychiatry & Neurology Neurology
DX: Z01.812 Encounter for preprocedural laboratory examination (principal); G93.1 Anoxic brain damage, not elsewhere classified; G25.3 Myoclonus; F03.91 Unspecified dementia, unspecified severity, with behavioral disturbance
CPT/HCPCS: 70553; A9585

== ENCOUNTER → 2021-05-13 | Outpatient (CLI) | payer MEDICARE, SELFPAY ==
[2021-05-13 10:34] LABS: Valproic Acid (Depakene) Level 22 ug/mL (50-100)
[2021-05-13 10:37] LABS: ALB/GLOB Ratio 0.9 RATIO (0.9-2.4); AST(SGOT) 14 U/L (15-37); Alanine Aminotransfer ALT/SGPT 16 U/L (16-61); Albumin, Serum 3.3 g/dL (3.2-5.0); Alkaline Phosphatase 150 U/L (45-117); Anion Gap 7 (5-15); BUN 13 mg/dL (7-18); BUN/Creat Ratio 9.9 RATIO (10-20); Calcium,Total 8.8 mg/dL (8.5-10.1); Chloride 105 mmol/L (98-107); Creatinine, Serum 1.31 mg/dL (0.70-1.30); EST Glomerular Filtration Rate 56 mL/min (>60); Est Glom Filt Rate - Afr Amer 68 mL/min (>60); Globulin 3.6 g/dL (2.2-4.2); Glucose 89 mg/dL (74-106); Potassium 4.4 mmol/L (3.5-5.1); Protein, Total 6.9 g/dL (6.4-8.2); Sodium Level 140 mmol/L (136-145)
== END | disposition home or self-care (01) ==
LOC: LABSPEC 08:05
PROVIDERS: PCP Family Medicine; Referring Provider Psychiatry & Neurology Neurology; Visit Provider Psychiatry & Neurology Neurology
DX: G25.3 Myoclonus (principal); Z86.74 Personal history of sudden cardiac arrest
CPT/HCPCS: 36415; 80053; 80164; 82140

== ENCOUNTER 2021-06-15 06:28 | Outpatient (CLI) | payer MEDICARE, SELFPAY ==
--- NOTE | 2021-06-15 07:42 | TELEMED_ITS ---
[facility] [employer] has confirmed receipt of a request for visit. This document confirms receipt of the order initiating the consult. To find the results of the consultation, please view the patient's reports for the scanned Telemed Consult.
== END 2021-06-15 23:59 | disposition short-term general hospital (02) ==
PROVIDERS: PCP Family Medicine; Referring Provider Nurse Practitioner Family; Visit Provider Nurse Practitioner Family
DX: G25.3 Myoclonus (principal); G93.1 Anoxic brain damage, not elsewhere classified
CPT/HCPCS: 95819

== ENCOUNTER 2022-04-22 17:46 | Inpatient (IN) | payer MEDICARE, SELFPAY ==
[2022-04-22] VITALS (11 sets, daily range): BP systolic 117–147; BP diastolic 67–113; PULSE 88–115; RESP 12–46; TEMP 38–39.3; O2SAT 88–96; BMI 25.0
--- NOTE | 2022-04-22 18:35 | EDS_ITS ---
HPI <WILLIE Garibay - Last Filed: 04/22/22 22:16> History of Present Illness Chief Complaint: Cold Sx Narrative Narrative: Patient presents today with his daughter with a fever and productive cough that he has had over the past week. Patient's daughter states he had a temperature of 100.9 F today that they have been treating with Tylenol. Patient's daughter states he has not been drinking much water and his urine has been dark. They deny taking a COVID test and he has not been vaccinated for COVID. Patient denies any sick contacts, difficulty breathing, chest pain, dysuria, and wheezing. PFS <WILLIE Garibay - Last Filed: 04/22/22 22:16> [facility] Medical History Abdominal aortic aneurysm, ruptured Anemia Cardiac arrest Coronary artery disease Coronary artery disease Dysphagia Factor V Leiden mutation GERD (gastroesophageal reflux disease) Hyperlipidemia Hypertension Iron deficiency anemia Vasovagal syndrome Home Medications aspirin 81 mg chewable tablet 81 mg PO DAILY@0800 [facility] 05/06/18 [History Last Taken 05/26/18 10:51] acidophilus 25 million cell-pectin, citrus 100 mg tablet 1 tab PO DAILY supplement 05/27/18 [History Last Taken Unknown] polyethylene glycol 3350 17 gram oral powder packet 17 g PO DAILY stool softener 05/27/18 [History Last Taken Unknown] magnesium oxide 400 mg PO DAILY 03/30/20 [History Last Taken Unknown] atorvastatin 10 mg tablet 10 mg PO DAILY 01/27/21 [History Last Taken Unknown] trimethoprim 100 mg tablet 100 mg PO DAILY 01/27/21 [History Last Taken Unknown] melatonin 3 mg capsule 3 mg PO HS 08/06/21 [History Last Taken Unknown] carbidopa 25 mg-levodopa 100 mg tablet 1 tab PO .COMPLEX #270 tabs 12/11/21 [Rx Last Taken Unknown] tizanidine 2 mg tablet 2 mg PO QHS muscle spasticity #90 tabs 12/13/21 [Rx Last Taken Unknown] quinapril 5 mg tablet 5 mg PO QHS 04/22/22 [History Last Taken Unknown] Allergy/AdvReac Type Severity Reaction Status Date / Time baclofen AdvReac Other Verified 04/22/22 17:49 famotidine [From Pepcid] AdvReac Low blood Verified 04/22/22 17:49 pressure metoclopramide [From Reglan] AdvReac Other Verified 04/22/22 17:49 Family History Sister Factor 5 Leiden mutation, heterozygous Aneurysm Sister Aneurysm Surgical History H/O abdominal aortic aneurysm repair H/O heart artery stent H/O hernia repair Hx of cholecystectomy Left shoulder surgery S/P percutaneous endoscopic gastrostomy (PEG) tube placement Tracheostomy status Social History (Updated 12/10/21 @ 14:52 by Tracey Torres) Smoking Status: Former smoker second hand exposure: No alcohol intake: never substance use type: does not use anna/congregational: Confucianist seatbelt use: always ROS <WILLIE Garibay - Last Filed: 04/22/22 22:16> ROS ED Constitutional Constitutional ED: Reports chills and fever(s) Eyes Eyes: Denies change in vision ENT ENT ED: Denies rhinorrhea or sore throat Cardiovascular Cardiovascular: Denies chest pain Respiratory/Chest Respiratory/Chest: Reports cough; Denies dyspnea, dyspnea on exertion, shortness of breath at rest, shortness of breath with exertion or wheezing Gastrointestinal Gastrointestinal: Denies abdominal pain, diarrhea, nausea or vomiting Genitourinary Genitourinary ED: Denies dysuria or hematuria Musculoskeletal Musculoskeletal: Denies arthralgias or myalgias Integumentary Denies abscess, Abrasions or rash Neurologic Neurologic: Denies headache(s) Psychiatric Psychiatric: Denies anxiety EXAM <WILLIE Garibay - Last Filed: 04/22/22 22:16> Physical Exam Const Vital Signs: 04/22/22 17:52 04/22/22 17:57 04/22/22 18:53 Temperature 100.4 F H Temperature Source Temporal Pulse Rate 88 Respiratory Rate 30 H Respiratory Effort Normal Non-Labored Respiratory Depth Normal Respiratory Pattern Normal Blood Pressure 129/113 H Blood Pressure Mean 118 Pulse Ox 92 Oxygen Delivery Method Nasal Cannula Room Air Nasal Cannula Oxygen Flow Rate (L/min) 2 4 Fraction of Inspired Oxygen (FIO2) 04/22/22 19:05 04/22/22 19:14 04/22/22 20:19 Temperature 102.7 F H Temperature Source Axillary Pulse Rate 114 H 115 H 113 H Respiratory Rate 30 H 44 H 43 H Respiratory Effort Respiratory Depth Respiratory Pattern Blood Pressure 145/96 H Blood Pressure Mean 112 Pulse Ox 90 Oxygen Delivery Method Nasal Cannula Oxygen Flow Rate (L/min) 4 Fraction of Inspired Oxygen (FIO2) 04/22/22 20:05 04/22/22 20:35 04/22/22 21:25 Temperature 102.8 F H Temperature Source Axillary Pulse Rate 114 H 115 H 114 H Respiratory Rate 46 H 41 H 45 H Respiratory Effort Respiratory Depth Respiratory Pattern Blood Pressure 147/92 H Blood Pressure Mean 110 Pulse Ox 94 95 94 Oxygen Delivery Method Bi-pap Oxygen Flow Rate (L/min) Fraction of Inspired Oxygen (FIO2) 60 60 04/22/22 21:00 04/22/22 23:00 04/22/22 23:25 Temperature Temperature Source Pulse Rate 101 H 95 97 Respiratory Rate 44 H 37 H 38 H Respiratory Effort Respiratory Depth Respiratory Pattern Tachypnea Blood Pressure 126/77 H 117/67 Blood Pressure Mean 93 83 Pulse Ox 95 96 96 Oxygen Delivery Method Bi-pap Bi-pap Oxygen Flow Rate (L/min) Fraction of Inspired Oxygen (FIO2) 60 Positive well nourished HEENT Reports moist mucous membranes Eyes PERRL and EOMs intact bilaterally Neck supple Chest Wall inspection of chest normal Resp clear to auscultation bilaterally Resp Narrative: Patient is very tachypneic with respirations ranging from 30 to 45/min. I do not hear any wheezing, rales, or rhonchi. Cardio regular rate, regular rhythm and no murmurs GI normal to inspection, nondistended, normoactive bowel sounds and non-tender GI Narrative: patient has a ventral hernia. Palpation: soft Extremity normal to inspection Neuro oriented x3 and CN's II-XII intact bilaterally <Dr. Malik Su, DO - Last Filed: 04/23/22 00:06> Physical Exam Const Vital Signs: 04/22/22 17:52 04/22/22 17:57 04/22/22 18:53 Temperature 100.4 F H Temperature Source Temporal Pulse Rate 88 Respiratory Rate 30 H Respiratory Effort Normal Non-Labored Respiratory Depth Normal Respiratory Pattern Normal Blood Pressure 129/113 H Blood Pressure Mean 118 Pulse Ox 92 Oxygen Delivery Method Nasal Cannula Room Air Nasal Cannula Oxygen Flow Rate (L/min) 2 4 Fraction of Inspired Oxygen (FIO2) 04/22/22 19:05 04/22/22 19:14 04/22/22 20:19 Temperature 102.7 F H Temperature Source Axillary Pulse Rate 114 H 115 H 113 H Respiratory Rate 30 H 44 H 43 H Respiratory Effort Respiratory Depth Respiratory Pattern Blood Pressure 145/96 H Blood Pressure Mean 112 Pulse Ox 90 Oxygen Delivery Method Nasal Cannula Oxygen Flow Rate (L/min) 4 Fraction of Inspired Oxygen (FIO2) 04/22/22 20:05 04/22/22 20:35 04/22/22 21:25 Temperature 102.8 F H Temperature Source Axillary Pulse Rate 114 H 115 H 114 H Respiratory Rate 46 H 41 H 45 H Respiratory Effort Respiratory Depth Respiratory Pattern Blood Pressure 147/92 H Blood Pressure Mean 110 Pulse Ox 94 95 94 Oxygen Delivery Method Bi-pap Oxygen Flow Rate (L/min) Fraction of Inspired Oxygen (FIO2) 60 60 04/22/22 21:00 04/22/22 23:00 04/22/22 23:25 Temperature Temperature Source Pulse Rate 101 H 95 97 Respiratory Rate 44 H 37 H 38 H Respiratory Effort Respiratory Depth Respiratory Pattern Tachypnea Blood Pressure 126/77 H 117/67 Blood Pressure Mean 93 83 Pulse Ox 95 96 96 Oxygen Delivery Method Bi-pap Bi-pap Oxygen Flow Rate (L/min) Fraction of Inspired Oxygen (FIO2) 60 Sepsis Attestation <WILLIE Garibay - Last Filed: 04/22/22 22:16> Sepsis Alert: Yes Sepsis Attestation: Agree w/Sepsis Date exam was performed: 04/22/22 Possible Source of Sepsis: Pulmonary Sepsis Organ Dysfunction Criteria Present: Acute Respiratory Failure (New need for BiPAP/CPAP or MV), Creatinine > 2.0 mg/dL and Lactic Acid > 2 mmol/L [facility] <WILLIE Garibay - Last Filed: 04/22/22 22:16> [facility] Narrative Medical decision making narrative: Patient was given a breathing treatment here in the ED but was still tachypneic. He was given IV fluids, Rocephin, and azithromycin for pneumonia. He was placed on a BiPAP. Lab Data Attestation: I reviewed the patient's lab results. Lab results narrative: Elevated BUN, elevated creatinine creatinine. Lactic acidosis. Elevated alkaline phosphatase. No UTI. Labs: Laboratory Results - last 24 hr 04/22/22 04/22/22 04/22/22 18:00 18:00 18:00 WBC 4.7 RBC 4.44 L Hgb 12.8 L Hct 39.6 L MCV 89.2 MCH 28.8 MCHC 32.3 RDW Std Deviation 50.0 H RDW Coeff of Winnie 15.1 H Plt Count 183 MPV 9.8 Immature Gran % (Auto) 1.100 H Neut % (Auto) 76.3 H Lymph % (Auto) 17.1 L [place] % (Auto) 5.1 Eos % (Auto) 0.2 Baso % (Auto) 0.2 Absolute Neuts (auto) 3.6 Absolute Lymphs (auto) 0.81 L Nucleated RBC % 0 PT 13.9 INR 1.1 APTT 35.7 Sodium 133 L Potassium 4.7 Chloride 101 Carbon Dioxide 24.0 Anion Gap 8 BUN 55 H Creatinine 2.73 H Estim Creat Clear Calc 21.54 Est GFR (MDRD) Af Amer 29 L Est GFR (MDRD) Non-Af 24 L BUN/Creatinine Ratio 20.1 H Glucose 109 H Lactic Acid Calcium 8.4 L Total Bilirubin 0.70 AST 43 H ALT 16 Alkaline Phosphatase 202 H Total Protein 7.0 Albumin 2.6 L Globulin 4.4 H Albumin/Globulin Ratio 0.6 L Urine Color Urine Clarity Urine pH Ur Specific [place] Urine Protein Urine Glucose (UA) Urine Ketones Urine Occult Blood Urine Nitrite Urine Bilirubin Urine Urobilinogen Ur Leukocyte Esterase Urine RBC Urine WBC Ur Squamous Epith Cells Urine Bacteria Urine Mucus 04/22/22 04/22/22 18:00 20:00 WBC RBC Hgb Hct MCV MCH MCHC RDW Std Deviation RDW Coeff of Winnie Plt Count MPV Immature Gran % (Auto) Neut % (Auto) Lymph % (Auto) [place] % (Auto) Eos % (Auto) Baso % (Auto) Absolute Neuts (auto) Absolute Lymphs (auto) Nucleated RBC % PT INR APTT Sodium Potassium Chloride Carbon Dioxide Anion Gap BUN Creatinine Estim Creat Clear Calc Est GFR (MDRD) Af Amer Est GFR (MDRD) Non-Af BUN/Creatinine Ratio Glucose Lactic Acid 2.8 H* Calcium Total Bilirubin AST ALT Alkaline Phosphatase Total Protein Albumin Globulin Albumin/Globulin Ratio Urine Color Yellow Urine Clarity Clear Urine pH 6.0 Ur Specific [place] 1.015 Urine Protein 100 H Urine Glucose (UA) Normal Urine Ketones 5 H Urine Occult Blood 250 H Urine Nitrite Negative Urine Bilirubin Negative Urine Urobilinogen 1 H Ur Leukocyte Esterase Negative Urine RBC 10-25 SEEN Urine WBC 0 SEEN Ur Squamous Epith Cells 0-5 SEEN Urine Bacteria 0 SEEN Urine Mucus 0 SEEN Radiography Diagnostic Testing: Clinical Impression(s) from Imaging Studies Chest X-Ray 04/22/22 19:14 IMPRESSION: Right perihilar and lower lung infiltrate or edema. Electronically Signed: Stefano Godinez MD at 19:33 EST Reading Location ID and State: [address] [place] [address] , Service support , Chest x-ray reviewed and I agree with radiologist impressions. This is also been reviewed by attending ED physician. EKG Initial EKG: Attestation: I personally reviewed and interpreted this EKG as follows: Comments: Rate 114 bpm. Sinus tachycardia, left axis deviation, pulmonary disease pattern. No ST elevation no signs of cardiac ischemia. <Dr. Malik Su DO - Last Filed: 04/23/22 00:06> [facility] Narrative Medical decision making narrative: Patient was given a breathing treatment here in the ED but was still tachypneic. He was given IV fluids, Rocephin, and azithromycin for pneumonia. He was placed on a BiPAP. Attending note I performed a history and physical examination of the patient and discussed management plan with the physician assistant to the vice president. I reviewed the physician assistant to the vice president's note and agree with the documented findings and plan of care. The patient is critically ill. It is my professional opinion that the patient will most likely not live much longer. He is on max BiPAP therapy but continues to weaken and his respiratory status. I have respected family's wishes to not administer any morphine or Ativan because they want him to keep breathing stro nger but he continues to weaken. The and 1 daughter state that he would not want to be on a ventilator. Another daughter wants him to have maximum therapy until her brother arrives from [place]. I advised that that is probably not going to be helpful and would only prolong the status. I have ordered as needed morphine Zofran and Ativan. We will observe the patient here in the emergency room and if he survives the next hour we will talk to the hospitalist regarding admission. Malik Su DO, MS Lab Data Labs: Laboratory Results - last 24 hr 04/22/22 04/22/22 04/22/22 18:00 18:00 18:00 WBC 4.7 RBC 4.44 L Hgb 12.8 L Hct 39.6 L MCV 89.2 MCH 28.8 MCHC 32.3 RDW Std Deviation 50.0 H RDW Coeff of Winnie 15.1 H Plt Count 183 MPV 9.8 Immature Gran % (Auto) 1.100 H Neut % (Auto) 76.3 H Lymph % (Auto) 17.1 L [place] % (Auto) 5.1 Eos % (Auto) 0.2 Baso % (Auto) 0.2 Absolute Neuts (auto) 3.6 Absolute Lymphs (auto) 0.81 L Nucleated RBC % 0 PT 13.9 INR 1.1 APTT 35.7 Sodium 133 L Potassium 4.7 Chloride 101 Carbon Dioxide 24.0 Anion Gap 8 BUN 55 H Creatinine 2.73 H Estim Creat Clear Calc 21.54 Est GFR (MDRD) Af Amer 29 L Est GFR (MDRD) Non-Af 24 L BUN/Creatinine Ratio 20.1 H Glucose 109 H Lactic Acid Calcium 8.4 L Total Bilirubin 0.70 AST 43 H ALT 16 Alkaline Phosphatase 202 H Total Protein 7.0 Albumin 2.6 L Globulin 4.4 H Albumin/Globulin Ratio 0.6 L Urine Color Urine Clarity Urine pH Ur Specific [place] Urine Protein Urine Glucose (UA) Urine Ketones Urine Occult Blood Urine Nitrite Urine Bilirubin Urine Urobilinogen Ur Leukocyte Esterase Urine RBC Urine WBC Ur Squamous Epith Cells Urine Bacteria Urine Mucus 04/22/22 04/22/22 18:00 20:00 WBC RBC Hgb Hct MCV MCH MCHC RDW Std Deviation RDW Coeff of Winnie Plt Count MPV Immature Gran % (Auto) Neut % (Auto) Lymph % (Auto) [place] % (Auto) Eos % (Auto) Baso % (Auto) Absolute Neuts (auto) Absolute Lymphs (auto) Nucleated RBC % PT INR APTT Sodium Potassium Chloride Carbon Dioxide Anion Gap BUN Creatinine Estim Creat Clear Calc Est GFR (MDRD) Af Amer Est GFR (MDRD) Non-Af BUN/Creatinine Ratio Glucose Lactic Acid 2.8 H* Calcium Total Bilirubin AST ALT Alkaline Phosphatase Total Protein Albumin Globulin Albumin/Globulin Ratio Urine Color Yellow Urine Clarity Clear Urine pH 6.0 Ur Specific [place] 1.015 Urine Protein 100 H Urine Glucose (UA) Normal Urine Ketones 5 H Urine Occult Blood 250 H Urine Nitrite Negative Urine Bilirubin Negative Urine Urobilinogen 1 H Ur Leukocyte Esterase Negative Urine RBC 10-25 SEEN Urine WBC 0 SEEN Ur Squamous Epith Cells 0-5 SEEN Urine Bacteria 0 SEEN Urine Mucus 0 SEEN Radiography Diagnostic Testing: Clinical Impression(s) from Imaging Studies Chest X-Ray 04/22/22 19:14 IMPRESSION: Right perihilar and lower lung infiltrate or edema. Electronically Signed: Stefano Godinez MD at 19:33 EST , Discharge Plan Triage Chief Complaint: Cold Sx ED Midlevel Provider: Kaci Forde ED Provider: Malik Su Dx/Rx/DC Orders Clinical Impression: COVID-19, Sepsis, Tachypnea, Pneumonia, Acute hypoxemic respiratory failure due to COVID-19 Prescriptions: No Action trimethoprim 100 mg tablet 100 mg PO DAILY atorvastatin 10 mg tablet 10 mg PO DAILY melatonin 3 mg capsule 3 mg PO HS carbidopa-levodopa 25-100 mg tablet 1 tab PO .COMPLEX Qty: 270 1RF Rx Instructions: Take 1 tablet PO BID for two weeks then one tablet TID thereafter tizanidine 2 mg tablet 2 mg PO QHS Qty: 90 1RF aspirin 81 MG tablet,chewable 81 mg PO DAILY@0800 polyethylene glycol 3350 17 GM packet 17 g PO DAILY acidophilus-pectin, citrus 1 TABLET tablet 1 tab PO DAILY magnesium oxide 400 MG tablet 400 mg PO DAILY quinapril 5 mg tablet 5 mg PO QHS Label Comments: TAKE 1 TABLET BY MOUTH EVERY DAY AT SUPPER Primary Care Provider: Jack Olmedo Referrals: Jack Olmedo MD [Primary Care Provider] -
[2022-04-22 19:03] LABS: Absolute Lymphocyte Count 0.81 X10^3/uL (0.83-4.51); Absolute Neutrophil Count 3.6 X10^3/uL (2.0-7.7); Basophil# 0.01 X10^3/uL; Basophil% 0.2 % (0-1); Eosinophil# 0.01 X10^3/uL; Eosinophils% 0.2 % (0-5); Hematocrit 39.6 % (40-54); Hemoglobin 12.8 g/dL (13.0-16.5); Lymphocyte # 0.81 X10^3/ul (0.83-4.51); Lymphocyte % 17.1 % (19-41); Mean Corp Hgb Conc 32.3 g/dL (32-36); Mean Corpuscular Hgb 28.8 pg (27.0-32.0); Mean Corpuscular Volume 89.2 fL (80-94); Mean Platelet Vol. 9.8 fl (6.2-12.0); Monocyte# 0.24 X10^3/uL; Monocyte% 5.1 % (0-10); NRBC Flagged by Analyzer 0 % (0-5); Neutrophil # 3.62 X10^3/uL (2.7-7.7); Neutrophil % 76.3 % (47-70); Platelet Count 183 K/mm3 (150-450); RBC Distribution Width CV 15.1 % (11.6-14.6); Red Blood Count 4.44 M/mm3 (4.6-6.2); White Blood Count 4.7 K/mm3 (4.4-11.0)
[2022-04-22] MEDS: 0.9% Normal Saline 1,000 ML 999 ML IV (19:04)
[2022-04-22 19:10] LABS: International Normalized Ratio 1.1; Prothrombin Time (Protime)PT. 13.9 SECONDS (11.7-14.9)
[2022-04-22 19:11] LABS: Partial Thromboplast Time 35.7 Seconds (24.1-36.2)
[2022-04-22] MEDS: Ipratropium/Albuterol Sulfate 3 ML AMPUL.NEB INHALATION (19:13)
--- NOTE | 2022-04-22 19:14 | RAD_ITS ---
STUDY: X-RAY CHEST REASON FOR EXAM: Male, 82 years old. Fever. Cough TECHNIQUE: Single AP portable view of the chest. COMPARISON: May 25, 2018 FINDINGS: There are monitoring devices. There are right perihilar and lower lung increased opacities. There is no demonstrated pleural abnormality. Normal size heart. Normal mediastinum and maximilian. Normal visualized pulmonary arteries. There is atherosclerotic calcification of the aortic arch with tortuosity. There is demineralization of the osseous structures. Normal visualized ribs, clavicles, and shoulders. There is no demonstrated abnormality of the visualized soft tissue structures of the upper abdomen. RAD/Chest 1 View (Portable) IMPRESSION: Right perihilar and lower lung infiltrate or edema. Electronically Signed: Stefano Godinez MD at 19:33 EST ,
[2022-04-22 19:23] LABS: ALB/GLOB Ratio 0.6 RATIO (0.9-2.4); AST(SGOT) 43 U/L (15-37); Alanine Aminotransfer ALT/SGPT 16 U/L (16-61); Albumin, Serum 2.6 g/dL (3.2-5.0); Alkaline Phosphatase 202 U/L (45-117); Anion Gap 8 (5-15); BUN 55 mg/dL (7-18); BUN/Creat Ratio 20.1 RATIO (10-20); Calcium,Total 8.4 mg/dL (8.5-10.1); Chloride 101 mmol/L (98-107); Creatinine, Serum 2.73 mg/dL (0.70-1.30); EST Glomerular Filtration Rate 24 mL/min (>60); Est Glom Filt Rate - Afr Amer 29 mL/min (>60); Estimated Creatinine Clearance 21.54 ml/min; Globulin 4.4 g/dL (2.2-4.2); Glucose 109 mg/dL (74-106); Potassium 4.7 mmol/L (3.5-5.1); Sodium Level 133 mmol/L (136-145)
[2022-04-22] MEDS: Acetaminophen 650 MG Suppository RC (19:50)
[2022-04-22 20:15] LABS: Bacteria 0 SEEN /hpf (None Seen); Mucous, Urine 0 SEEN /hpf (<or=2+); White Blood Cells 0 SEEN /hpf (0-5)
[2022-04-22 20:18] LABS: Color, Urine Yellow (Yellow); Glucose, Dipstick Normal (Normal); Ketone-Dipstick 5 mg/dl (Negative); Leukocyte Esterase-Dipstick Negative /ul (Negative); Nitrite-Dipstick Negative (Negative); Occult Blood-Urine 250 /ul (Negative); Protein-Dipstick 100 mg/dl (Negative); Specific Gravity, Urine 1.015 (1.002-1.030); Urine Bilirubin Dipstick Negative (Negative); Urine Clarity Clear (Clear); Urine Urobilinogen 1 mg/dl (Normal)
[2022-04-22] MEDS: Albuterol 2.5 MG/3 ML VIAL.NEB. INHALATION ×2 (20:18)
[2022-04-22 20:39] LABS: Lactic Acid 2.8 mmol/L (0.4-1.9)
[2022-04-22 20:45] LABS: Red Blood Cells-Urine 10-25 SEEN /hpf (0-5); Squamous Epithelial Cells - UA 0-5 SEEN /hpf (0-5)
[2022-04-22] MEDS: dexAMETHasone 10 MG/ML Vial IV (21:05)
[2022-04-22] MEDS: Ceftriaxone 1 GM/50 ML BAG IV (21:29)
[2022-04-22 23:08] LABS: Reflex Lactate? Y
[2022-04-23] VITALS (13 sets, daily range): BP systolic 102–152; BP diastolic 68–119; PULSE 63–90; RESP 12–35; TEMP 36.1–36.6; O2SAT 12–100; BMI 23.1
[2022-04-23] MEDS: Ondansetron 4 MG/2 ML Vial IV (00:02)
[2022-04-23] MEDS: Morphine 4 MG/ML Syringe IV (00:02)
[2022-04-23] MEDS: LORazepam 2 MG/ML Syringe 1 MG IV (00:02)
--- NOTE | 2022-04-23 00:19 | CPS ---
pt moved from er 18 to er 7 no issues
--- NOTE | 2022-04-23 00:53 | PCM.HP.STD ---
HPI - General General Date of Admission: 04/23/22 HPI Narrative NAVEEN AKINS, is a 82 M who presents to the hospital with respiratory distress and acute renal failure. He is currently not responding given the BiPAP, his respiratory distress, as well as the morphine that he was given for his distress. According to the family he started getting sick last Tuesday and then has slowly declined. He was fairly weak today and has not been eating or drinking very well. In the ER he tested positive for COVID. He is unvaccinated. He was placed on BiPAP secondary to his increased work of breathing and his hypoxia which was 88% on room air. Family stated that he would not want to be intubated so extensive discussions were had in the ER about prognosis and advance care planning and the family did elect to proceed with hospice care. REPLACED BY [facility] Medical History Abdominal aortic aneurysm, ruptured Anemia Cardiac arrest Coronary artery disease Coronary artery disease Dysphagia Factor V Leiden mutation GERD (gastroesophageal reflux disease) Hyperlipidemia Hypertension Iron deficiency anemia Vasovagal syndrome Home Medications aspirin 81 mg chewable tablet 81 mg PO DAILY@0800 [facility] 05/06/18 [History Last Taken 05/26/18 10:51] acidophilus 25 million cell-pectin, citrus 100 mg tablet 1 tab PO DAILY supplement 05/27/18 [History Last Taken Unknown] polyethylene glycol 3350 17 gram oral powder packet 17 g PO DAILY stool softener 05/27/18 [History Last Taken Unknown] magnesium oxide 400 mg PO DAILY 03/30/20 [History Last Taken Unknown] atorvastatin 10 mg tablet 10 mg PO DAILY 01/27/21 [History Last Taken Unknown] trimethoprim 100 mg tablet 100 mg PO DAILY 01/27/21 [History Last Taken Unknown] melatonin 3 mg capsule 3 mg PO HS 08/06/21 [History Last Taken Unknown] carbidopa 25 mg-levodopa 100 mg tablet 1 tab PO .COMPLEX #270 tabs 12/11/21 [Rx Last Taken Unknown] tizanidine 2 mg tablet 2 mg PO QHS muscle spasticity #90 tabs 12/13/21 [Rx Last Taken Unknown] quinapril 5 mg tablet 5 mg PO QHS 04/22/22 [History Last Taken Unknown] Allergy/AdvReac Type Severity Reaction Status Date / Time baclofen AdvReac Other Verified 04/22/22 17:49 famotidine [From Pepcid] AdvReac Low blood Verified 04/22/22 17:49 pressure metoclopramide [From Reglan] AdvReac Other Verified 04/22/22 17:49 Family History Sister Factor 5 Leiden mutation, heterozygous Aneurysm Sister Aneurysm Surgical History H/O abdominal aortic aneurysm repair H/O heart artery stent H/O hernia repair Hx of cholecystectomy Left shoulder surgery S/P percutaneous endoscopic gastrostomy (PEG) tube placement Tracheostomy status Social History (Updated 12/10/21 @ 14:52 by Tracey Torres) Smoking Status: Former smoker second hand exposure: No alcohol intake: never substance use type: does not use anna/amish: Buddhist seatbelt use: always ROS Review of Systems ROS Unobtainable: due to mental status Vital Signs Vital Signs Vital Signs: 04/22/22 17:52 04/22/22 17:57 04/22/22 18:53 Temperature 100.4 F H Temperature Source Temporal Pulse Rate 88 Respiratory Rate 30 H Respiratory Effort Normal Non-Labored Respiratory Depth Normal Respiratory Pattern Normal Blood Pressure 129/113 H Blood Pressure Mean 118 Pulse Ox 92 Oxygen Delivery Method Nasal Cannula Room Air Nasal Cannula Oxygen Flow Rate (L/min) 2 4 Fraction of Inspired Oxygen (FIO2) 04/22/22 19:05 04/22/22 19:14 04/22/22 20:19 Temperature 102.7 F H Temperature Source Axillary Pulse Rate 114 H 115 H 113 H Respiratory Rate 30 H 44 H 43 H Respiratory Effort Respiratory Depth Respiratory Pattern Blood Pressure 145/96 H Blood Pressure Mean 112 Pulse Ox 90 Oxygen Delivery Method Nasal Cannula Oxygen Flow Rate (L/min) 4 Fraction of Inspired Oxygen (FIO2) 04/22/22 20:05 04/22/22 20:35 04/22/22 21:25 Temperature 102.8 F H Temperature Source Axillary Pulse Rate 114 H 115 H 114 H Respiratory Rate 46 H 41 H 45 H Respiratory Effort Respiratory Depth Respiratory Pattern Blood Pressure 147/92 H Blood Pressure Mean 110 Pulse Ox 94 95 94 Oxygen Delivery Method Bi-pap Oxygen Flow Rate (L/min) Fraction of Inspired Oxygen (FIO2) 60 60 04/22/22 21:00 04/22/22 23:00 04/22/22 23:25 Temperature Temperature Source Pulse Rate 101 H 95 97 Respiratory Rate 44 H 37 H 38 H Respiratory Effort Respiratory Depth Respiratory Pattern Tachypnea Blood Pressure 126/77 H 117/67 Blood Pressure Mean 93 83 Pulse Ox 95 96 96 Oxygen Delivery Method Bi-pap Bi-pap Oxygen Flow Rate (L/min) Fraction of Inspired Oxygen (FIO2) 60 04/23/22 00:18 04/23/22 00:26 Temperature 97.9 F Temperature Source Temporal Pulse Rate 90 Respiratory Rate 33 H Respiratory Effort Respiratory Depth Respiratory Pattern Blood Pressure 113/99 H Blood Pressure Mean 103 Pulse Ox 98 Oxygen Delivery Method Bi-pap Oxygen Flow Rate (L/min) 60 Fraction of Inspired Oxygen (FIO2) 60 Weight Weight: 175 lb 4.28 oz Body Mass Index (BMI) 25.0 Physical Exam Narrative General: Lethargic, respiratory distress HEENT: Atraumatic, PERRLA, Normocephalic Oral: Dry mucosa Neck: Supple, No JVD Lungs: Diminished, tachypnea with increased work of breathing, No rhonchi, No wheeze, No rales Cardiovascular: Regular rate, Regular Rhythm, Normal S1, Normal S2, No murmurs Abdomen: Soft, Non-Distended, No Hepato-splenomegaly Extremities: No edema, Capillary Refill Less than 3 Seconds Skin: No rashes, No breakdown Musculoskeletal: No Tenderness to Palpation of Joints or Extremities Neurological: Lethargic unable to participate in exam Psych/Mental Status: Not alert Results Lab / Micro Data Result Diagrams: 04/22/22 18:00 04/22/22 18:00 Labs: Laboratory Results - last 24 hr 04/22/22 18:00: WBC 4.7, RBC 4.44 L, Hgb 12.8 L, Hct 39.6 L, MCV 89.2, MCH 28.8, MCHC 32.3, RDW Std Deviation 50.0 H, RDW Coeff of Winnie 15.1 H, Plt Count 183, MPV 9.8, Immature Gran % (Auto) 1.100 H, Neut % (Auto) 76.3 H, Lymph % (Auto) 17.1 L, [place] % (Auto) 5.1, Eos % (Auto) 0.2, Baso % (Auto) 0.2, Absolute Neuts (auto) 3.6, Absolute Lymphs (auto) 0.81 L, Nucleated RBC % 0 04/22/22 18:00: PT 13.9, INR 1.1, APTT 35.7 04/22/22 18:00: Sodium 133 L, Potassium 4.7, Chloride 101, Carbon Dioxide 24.0, Anion Gap 8, BUN 55 H, Creatinine 2.73 H, Estim Creat Clear Calc 21.54, Est GFR (MDRD) Af Amer 29 L, Est GFR (MDRD) Non-Af 24 L, BUN/Creatinine Ratio 20.1 H, Glucose 109 H, Calcium 8.4 L, Total Bilirubin 0.70, AST 43 H, ALT 16, Alkaline Phosphatase 202 H, Total Protein 7.0, Albumin 2.6 L, Globulin 4.4 H, Albumin/Globulin Ratio 0.6 L 04/22/22 18:00: Lactic Acid 2.8 H* 04/22/22 20:00: Urine Color Yellow, Urine Clarity Clear, Urine pH 6.0, Ur Specific [place] 1.015, Urine Protein 100 H, Urine Glucose (UA) Normal, Urine Ketones 5 H, Urine Occult Blood 250 H, Urine Nitrite Negative, Urine Bilirubin Negative, Urine Urobilinogen 1 H, Ur Leukocyte Esterase Negative, Urine RBC 10-25 SEEN, Urine WBC 0 SEEN, Ur Squamous Epith Cells 0-5 SEEN, Urine Bacteria 0 SEEN, Urine Mucus 0 SEEN Micro: Microbiology 04/22/22 18:00 Nasal Secretion SARS-CoV-2 & FLU Antigen (Rapid) - Final SARS-CoV-2 (COVID 19) Radiology Impression Chest X-Ray 04/22/22 19:14 IMPRESSION: Right perihilar and lower lung infiltrate or edema. Electronically Signed: Stefano Godinez MD at 19:33 EST , Assessment & Plan Assessment/Plan (1) Acute hypoxemic respiratory failure due to COVID-19: (2) Acute renal failure: PLAN: Plan 1. Acute hypoxic respiratory failure secondary to COVID-19/acute renal failure with CKD 3a ? I had a 20-minute discussion with the family about advance care planning options, given the fact that he would not want to be intubated or any advanced life-saving organisms family has elected to proceed with hospice care. Given his renal failure he is not a candidate for remdesivir, we can continue to give him Decadron ? We will have morphine, Ativan, and Lasix available for treatment of his respiratory distress ? Continue with BiPAP, we are currently awaiting family to arrive from [place] 2. HTN/HLD/ruptured AAA status postrepair ?We will hold his NAI inhibitor secondary to his renal failure ? Blood pressures are stable ? We will hold his Lipitor secondary to being on BiPAP 3. Parkinson's disease ? We will hold his Sinemet secondary to being on BiPAP DVT: Ambulation Charges/Coding Visit Charges Inpatient E&M: 59055 Init Hosp L2 Procedures Hospitalists Procedures: 75544 Advncd Care Plan 30 Min
[2022-04-23] MEDS: dexAMETHasone 10 MG/ML Vial 6 MG IV (09:04)
--- NOTE | 2022-04-23 10:29 | PCM.HOSP.N ---
Hospitalist Note Evaluated patient who is still on BiPAP this morning though with decreased O2 requirements at 40%. Still minimally interactive. Does appear to respond to the Decadron. Respiratory placed him on high flow. Discussed with the family that pending progress will change trajectory as initial plan was hospice.
--- NOTE | 2022-04-23 11:57 | CASEMGMT ---
Social Work As per admitting nurse assessment, pt's is pt's POA, they are unable to bring in the documents at this time. JUDE Newman
--- NOTE | 2022-04-23 18:32 | NURSING ---
2058-CALLED INTO ROOM TO CHECK ON PT. FAMILY DENIES NEEDS. POX 99%, HR66-PT ON BIPAP, RESP THERAPY COMING UP SHORTLY TO REDUCE O2
--- NOTE | 2022-04-23 18:34 | NURSING ---
1130-CHERRI, SOLUTION COORDINATOR, TOLD THIS NURSE THAT FAMILY WAS ASKING HOW PT WAS DOING. THIS NURSE CALLED INTO ROOM AND TOLD THEM THAT PTS POX WAS 98% AND HIS HR WAS 66. FAMILY DENIED FURTHER NEEDS.
[2022-04-24] VITALS (8 sets, daily range): BP systolic 151–157; BP diastolic 64–103; PULSE 75–86; RESP 20–25; TEMP 36.4–36.7; O2SAT 94–97
[2022-04-24 06:24] LABS: Absolute Neutrophil Count 3.4 X10^3/uL (2.0-7.7); Hematocrit 37.7 % (40-54); Hemoglobin 12.4 g/dL (13.0-16.5); Lymphocyte % 10.1 % (19-41); Mean Corp Hgb Conc 32.9 g/dL (32-36); Mean Corpuscular Hgb 29.4 pg (27.0-32.0); Mean Corpuscular Volume 89.3 fL (80-94); Mean Platelet Vol. 9.3 fl (6.2-12.0); Monocyte# 0.17 X10^3/uL; Monocyte% 4.3 % (0-10); NRBC Flagged by Analyzer 0 % (0-5); Neutrophil # 3.36 X10^3/uL (2.7-7.7); Neutrophil % 84.6 % (47-70); POSITIVE DIFFERENTIAL YES; Platelet Count 193 K/mm3 (150-450); RBC Distribution Width CV 15.5 % (11.6-14.6); RBC Distribution Width SD 51.4 fl (35.1-43.9); Red Blood Count 4.22 M/mm3 (4.6-6.2)
[2022-04-24 06:27] LABS: Differential Indicated SCAN CRITERIA MET
[2022-04-24 06:44] LABS: Differential Comment SCANNED
[2022-04-24 06:54] LABS: ALB/GLOB Ratio 0.5 RATIO (0.9-2.4); AST(SGOT) 43 U/L (15-37); Alanine Aminotransfer ALT/SGPT 34 U/L (16-61); Albumin, Serum 2.3 g/dL (3.2-5.0); Alkaline Phosphatase 173 U/L (45-117); Anion Gap 9 (5-15); BUN 54 mg/dL (7-18); BUN/Creat Ratio 29.3 RATIO (10-20); Calcium,Total 8.3 mg/dL (8.5-10.1); Chloride 107 mmol/L (98-107); Creatinine, Serum 1.84 mg/dL (0.70-1.30); EST Glomerular Filtration Rate 38 mL/min (>60); Est Glom Filt Rate - Afr Amer 46 mL/min (>60); Estimated Creatinine Clearance 31.96 ml/min; Globulin 4.3 g/dL (2.2-4.2); Glucose 137 mg/dL (74-106); Potassium 5.4 mmol/L (3.5-5.1); Protein, Total 6.6 g/dL (6.4-8.2); Sodium Level 135 mmol/L (136-145)
--- NOTE | 2022-04-24 09:31 | CASEMGMT ---
Addendum entered by Lucy Garrison 04/24/22 10:49: Social Work SW spoke w/hospice, the nurse will be here between 1pm-1:30pm to see pt and family. JUDE Newman Original Note: Social work SW spoke w/physician, family is agreeable to hospice. SW called [facility], referral made, faxed information. Someone from hospice is to reach out to pt's and let SW know what time they are meeting w/pt. SW informed supercharger repair supervisor of the potential plan. JUDE Newman
[2022-04-24] MEDS: 0.9% Saline Lock 10 ML Syringe IV (09:44)
[2022-04-24] MEDS: dexAMETHasone 10 MG/ML Vial 6 MG IV (09:46)
--- NOTE | 2022-04-24 11:36 | NURSING ---
pt room very warm, unable to control temp setting/boiler room called and asked them to check setting/turn off family concerned pt may have fever-will monitor once heat setting in room is normal
[2022-04-24] MEDS: morphine (oral solution) 10MG/0.5ML Syringe 5 MG SL/PO ×3 (12:24→20:54)
--- NOTE | 2022-04-24 12:31 | PN.HOSP_ITS ---
Subjective Subjective Resting in bed with O2 on and family member at bedside. Would not open eyes or participate in exam, no purposeful answers to questions Objective Data Objective Data Vital Signs: Vital Signs Temp Pulse Resp BP Pulse Ox O2 Del Method O2 Flow Rate 97.8 F 83 20 H 151/87 H 97 High Flow 7 04/24/22 09:49 04/24/22 04:00 04/24/22 09:49 04/24/22 09:49 04/24/22 09:49 04/24/22 09:49 04/24/22 09:49 FiO2 40 04/23/22 09:00 Oxygen Flow Rate (L/min) 7 Oxygen Delivery Method High Flow Weight: 73.1 kg Body Mass Index (BMI) 23.1 Intake & Output: Intake and Output for Last 24 Hours 04/22/22 04/23/22 04/24/22 23:59 23:59 23:59 Intake Total 1050 / 1050 255 / 255 0 / 0 Output Total 875 / 1075 500 / 500 Balance 1050 / 1050 -620 / -820 -500 / -500 Lab / Micro Data Result Diagrams: 04/24/22 06:10 04/24/22 06:10 Labs: Laboratory Results - last 24 hr 04/24/22 06:10: WBC 4.0 L, RBC 4.22 L, Hgb 12.4 L, Hct 37.7 L, MCV 89.3, MCH 29.4, MCHC 32.9, RDW Std Deviation 51.4 H, RDW Coeff of [place] 15.5 H, Plt Count 193, MPV 9.3, Immature Gran % (Auto) 1.000 H, Neut % (Auto) 84.6 H, Lymph % (Auto) 10.1 L, [place] % (Auto) 4.3, Eos % (Auto) 0.0, Baso % (Auto) 0.0, Absolute Neuts (auto) 3.4, Absolute Lymphs (auto) 0.40 L, Nucleated RBC % 0, Differential Comment SCANNED, Diff Path Review October04/24/22 06:10: Sodium 135 L, Potassium 5.4 H, Chloride 107, Carbon Dioxide 19.0 L, Anion Gap 9, BUN 54 H, Creatinine 1.84 H, Estim Creat Clear Calc 31.96, Est GFR (MDRD) Af Amer 46 L, Est GFR (MDRD) Non-Af 38 L, BUN/Creatinine Ratio 29.3 H , Glucose 137 H, Calcium 8.3 L, Total Bilirubin 0.60, AST 43 H, ALT 34, Alkaline Phosphatase 173 H, Total Protein 6.6, Albumin 2.3 L, Globulin 4.3 H, Albumin/G lobulin Ratio 0.5 L Micro: Microbiology 04/22/22 20:00 Urine, Catheterized Urine Culture - Preliminary Culture exhibits no growth. 04/22/22 18:00 Nasal Secretion SARS-CoV-2 & FLU Antigen (Rapid) - Final SARS-CoV-2 (COVID 19) Physical Exam Const Constitutional Narrative: Laying in bed, will not open eyes on exam HEENT head/scalp atraumatic Eyes Eyes Narrative: No spontaneous eye opening Neck supple Resp Resp Narrative: Somewhat increased work of breathing though better than yesterday, diminished breath sounds at the bases Cardio regular rate and regular rhythm GI soft to palpation and non-distended GI Narrative: Almost appeared uncomfortable when palpating but inconsistent Extremity Extremity Narrative: Moving upper extremities in bed Neuro Neuro Narrative: Unable to participate in neuro exam, no overt focal deficits appreciated however Psych Psych Narrative: Unable to cooperate with exam Assessment & Plan Assessment/Plan (1) Acute hypoxemic respiratory failure due to COVID-19: (2) Acute renal failure: PLAN: Plan 1. Acute hypoxic respiratory failure secondary to COVID-19/acute renal failure with CKD 3a ?Respiratory status is improving though still tenuous and mental status is still far from baseline, still not waking up and answering questions purposefully ? She is on Decadron ? Not a candidate for remdesivir with his renal failure ? On high flow at this time, BiPAP as needed ? Family initially for hospice but given his improvement they wanted to monitor overnight. Son at bedside this morning indicated that they would like to speak with hospice, hospice has been consulted 2. HTN/HLD/ruptured AAA status postrepair ?We will hold his NAI inhibitor secondary to his renal failure ? We will hold his Lipitor secondary to Not taking oral meds, given mental status likely not safe to do so at this time 3. Parkinson's disease ? Not taking oral meds, given mental status likely not safe to do so at this time Charges/Coding Visit Charges OBSV E&M: 01905 Subsequent observation care L2
--- NOTE | 2022-04-24 14:39 | CASEMGMT ---
Social Work GLENNY spoke w/Charisse RN from hospice. She states family cannot seem to come to an agreement on whether or not do sign on for hospice, and if they sign on for hospice on whether or not go to go to the [facility] or home. Charisse gave them some time to discuss and then let her know what they want to do. GLENNY updated physician and clinic charge nurse. JUDE Newman
--- NOTE | 2022-04-24 14:51 | NURSING ---
family met with hospice for over an hour, are discussing among themselves what they want
[2022-04-24] MEDS: Acetaminophen 650 MG Suppository RC (15:00)
--- NOTE | 2022-04-24 18:33 | DCINST_ITS ---
Discharge Instructions Diet Discharge Diet: - (Diet per hospice discretion) Follow Up Care Test Results: Test results from this visit will be discussed in further detail at your follow- up appointment, if applicable. Discharge Plan Admission Admit Date/Time: 04/24/22 14:52 Primary Reason for Your Visit: Shortness of breath, COVID Attending Provider: Janell Person Primary Care Provider: Jack Olmedo Consulting Providers: Darrell Gomez Instructions Patient Instructions: How COVID-19 Spreads Additional Instructions / Restrictions: For ease of breathing you can consider continuing dexamethasone 6 mg for another 8 days due to your COVID. This will be at the discretion of hospice. Discharge Orders/Prescriptions Prescriptions: New dexamethasone 6 mg tablet 6 mg PO DAILY 8 Days Qty: 8 0RF Continued carbidopa-levodopa 25-100 mg tablet 1 tab PO .COMPLEX Qty: 270 1RF Rx Instructions: Take 1 tablet PO BID for two weeks then one tablet TID thereafter tizanidine 2 mg tablet 2 mg PO QHS Qty: 90 1RF Discontinued trimethoprim 100 mg tablet 100 mg PO DAILY atorvastatin 10 mg tablet 10 mg PO DAILY melatonin 3 mg capsule 3 mg PO HS aspirin 81 MG tablet,chewable 81 mg PO DAILY@0800 polyethylene glycol 3350 17 GM packet 17 g PO DAILY acidophilus-pectin, citrus 1 TABLET tablet 1 tab PO DAILY magnesium oxide 400 MG tablet 400 mg PO DAILY quinapril 5 mg tablet 5 mg PO QHS Label Comments: TAKE 1 TABLET BY MOUTH EVERY DAY AT SUPPER Referrals / Follow Up: Jack Olmedo MD [Primary Care Provider] - Disposition Disposition (needs filled in before D/C Order can be placed): Hospice in Medical Facility
--- NOTE | 2022-04-24 18:39 | DS.PCM_ITS ---
Providers Date of Admission: 04/24/22 Date of Discharge: 04/24/22 Primary Care Physician: Dr. Jack Olmedo MD Reason For Visit: covid Diagnosis Discharge Diagnosis (1) Acute hypoxemic respiratory failure due to COVID-19: Status: Acute Code(s): U07.1 - COVID-19; J96.01 - Acute respiratory failure with hypoxia (2) Acute renal failure: Status: Acute Code(s): N17.9 - Acute kidney failure, unspecified Plan 1. Acute hypoxic respiratory failure secondary to COVID-19/acute renal failure with CKD 3a 2. HTN/HLD/ruptured AAA status postrepair 3. Parkinson's disease Medications at Discharge Home Medications carbidopa 25 mg-levodopa 100 mg tablet 1 tab PO .COMPLEX #270 tabs 12/11/21 tizanidine 2 mg tablet 2 mg PO QHS muscle spasticity #90 tabs 12/13/21 dexamethasone 6 mg tablet 6 mg PO DAILY 8 days #8 tabs 04/24/22 Hospital Course Summary of Care Provided Minutes Spent on Discharge: 32 Hospital Course: Yuan Horan is an 82-year-old male with a history of ruptured abdominal aortic aneurysm, coronary artery disease, cardiac arrest, GERD, hypertension who presented to [facility] 04/23/2022 with respiratory distress and renal failure. Was not responding to BiPAP initially, was found to have COVID. Family opted for comfort care. He was placed on dexamethasone and BiPAP. Due to his renal failure he was not a candidate for remdesivir. Did improve from a respiratory status slightly during hospitalization but continued to have significant difficulty, mental status far from baseline. Hospice met with family and ultimately family decided hospice. Physical Exam Const Constitutional Narrative: Laying in bed, will not open eyes on exam HEENT head/scalp atraumatic Eyes Eyes Narrative: No spontaneous eye opening Neck supple Resp Resp Narrative: Somewhat increased work of breathing though better than yesterday, diminished breath sounds at the bases Cardio regular rate and regular rhythm GI soft to palpation and non-distended GI Narrative: Almost appeared uncomfortable when palpating but inconsistent Extremity Extremity Narrative: Moving upper extremities in bed Neuro Neuro Narrative: Unable to participate in neuro exam, no overt focal deficits appreciated however Psych Psych Narrative: Unable to cooperate with exam Weight / BMI Weight Weight: 73.1 kg Body Mass Index (BMI) 23.1 ABG / Lab / Microbiology Data Result Diagrams: 04/24/22 06:10 04/24/22 06:10 Laboratory: Laboratory Results - last 24 hr 04/24/22 06:10: WBC 4.0 L, RBC 4.22 L, Hgb 12.4 L, Hct 37.7 L, MCV 89.3, MCH 29.4, MCHC 32.9, RDW Std Deviation 51.4 H, RDW Coeff of Winnie 15.5 H, Plt Count 193, MPV 9.3, Immature Gran % (Auto) 1.000 H, Neut % (Auto) 84.6 H, Lymph % (Auto) 10.1 L, [place] % (Auto) 4.3, Eos % (Auto) 0.0, Baso % (Auto) 0.0, Absolute Neuts (auto) 3.4, Absolute Lymphs (auto) 0.40 L, Nucleated RBC % 0, Differential Comment SCANNED, Diff Path Review October04/24/22 06:10: Sodium 135 L, Potassium 5.4 H, Chloride 107, Carbon Dioxide 19.0 L, Anion Gap 9, BUN 54 H, Creatinine 1.84 H, Estim Creat Clear Calc 31.96, Est GFR (MDRD) Af Amer 46 L, Est GFR (MDRD) Non-Af 38 L, BUN/Creatinine Ratio 29.3 H , Glucose 137 H, Calcium 8.3 L, Total Bilirubin 0.60, AST 43 H, ALT 34, Alkaline Phosphatase 173 H, Total Protein 6.6, Albumin 2.3 L, Globulin 4.3 H, Albumin/Globulin Ratio 0.5 L Microbiology: Microbiology 04/22/22 20:00 Urine, Catheterized Urine Culture - Preliminary Culture exhibits no growth. 04/22/22 18:00 Nasal Secretion SARS-CoV-2 & FLU Antigen (Rapid) - Final SARS-CoV-2 (COVID 19) D/C Instructions Discharge Diet: - (Diet per hospice discretion) Meaningful Use Info Meaningful Use Diagnoses (Choose all that apply): None applicable Discharge Plan Admission Admit Date/Time: 04/24/22 14:52 Primary Reason for Your Visit: Shortness of breath, COVID Attending Provider: Janell Person Primary Care Provider: Jack Olmedo Consulting Providers: Darrell Gomez Instructions Patient Instructions: How COVID-19 Spreads Additional Instructions / Restrictions: For ease of breathing you can consider continuing dexamethasone 6 mg for another 8 days due to your COVID. This will be at the discretion of hospice. Discharge Orders/Prescriptions Prescriptions: New dexamethasone 6 mg tablet 6 mg PO DAILY 8 Days Qty: 8 0RF Continued carbidopa-levodopa 25-100 mg tablet 1 tab PO .COMPLEX Qty: 270 1RF Rx Instructions: Take 1 tablet PO BID for two weeks then one tablet TID thereafter tizanidine 2 mg tablet 2 mg PO QHS Qty: 90 1RF Discontinued trimethoprim 100 mg tablet 100 mg PO DAILY atorvastatin 10 mg tablet 10 mg PO DAILY melatonin 3 mg capsule 3 mg PO HS aspirin 81 MG tablet,chewable 81 mg PO DAILY@0800 polyethylene glycol 3350 17 GM packet 17 g PO DAILY acidophilus-pectin, citrus 1 TABLET tablet 1 tab PO DAILY magnesium oxide 400 MG tablet 400 mg PO DAILY quinapril 5 mg tablet 5 mg PO QHS Label Comments: TAKE 1 TABLET BY MOUTH EVERY DAY AT SUPPER Referrals / Follow Up: Jack Olmedo MD [Primary Care Provider] - Disposition Disposition (needs filled in before D/C Order can be placed): Hospice in Medical Facility Charges/Coding Visit Charges Inpatient E&M: 23435 Disch Hosp
[2022-04-28 08:59] LABS: Pathologist Review Reviewed
== END 2022-04-24 21:05 | disposition hospice, inpatient (51) | DRG 177 ==
LOC: ED 19:41 → MS3 04-23 02:02
PROVIDERS: Admitting Provider Family Medicine; Emergency Provider Emergency Medicine; PCP Family Medicine; Visit Provider Internal Medicine
DX: U07.1 COVID-19 (principal); J96.01 Acute respiratory failure with hypoxia; J12.82 Pneumonia due to coronavirus disease 2019; N17.9 Acute kidney failure, unspecified; N18.31 Chronic kidney disease, stage 3a; G20 Parkinson's disease; E78.5 Hyperlipidemia, unspecified; I25.10 Atherosclerotic heart disease of native coronary artery without angina pectoris; I12.9 Hypertensive chronic kidney disease with stage 1 through stage 4 chronic kidney disease, or unspecified chronic kidney disease; K21.9 Gastro-esophageal reflux disease without esophagitis; Z28.310 Unvaccinated for COVID-19; Z79.82 Long term (current) use of aspirin; Z79.899 Other long term (current) drug therapy; Z87.891 Personal history of nicotine dependence
CPT/HCPCS: 36415; 51702; 71045; 80053; 81001; 83605; 85025; 85610; 85730; 87040; 87086; 87428; 93005; 94002; 94003; 94640; 94762; 99285; P9612; A4216; J2405